=== PATIENT | female | born 1940 | race Caucasian/White ===

== ENCOUNTER → 2018-10-18 09:16 | Outpatient (CLI) | payer MEDICARE, OTHER, SELFPAY ==
--- NOTE | 2018-10-18 09:32 | PCM.CR.ITP ---
General Information - General Information Admitting Diagnosis: STEMI, PCI W/CORONARY STENT PLACEMENT - Education/Goals Barriers to Learning: Vision Impairment Individual Counseling: Initial Assessment: Abnormal Cholesterol Levels, High Blood Pressure Cardiac Rehabilitation Goals: 1. Maintain the individual as the primary focus of care. 2. To improve the patient's quality of life. 3. Identification of cardiac risk factors and provide cardiac risk factor management. 4. Enhance the psychosocial status of the patient. 5. Reconditioning enough to allow the patient to resume customary activities. 6. Control symptoms of cardiac disease Scale for measuring improvement of personal goals: Enter appropriate number in Comments. 2 = Unchanged. 3 = Slightly Better. 4 = Moderate Improvement. 5 = Met my Goal Personal Goals: Initial Assessment: Improve management of stress and emotions, Improve energy level, Participate in home exercise program, Get back to work, or to resume activities faster, Improve knowledge of cardiac disease, Improve muscle strength and endurance, Improve diet and eating habits (eat healthier), Control risk factors (learn risk factor modification) Exercise - Initial Assessment - Visit Date of Eval: 10/18/18 Session #:: 0 - START IN 2-WEEKS - Stages of Change Stages of Change:: Action - Physician Prescribed Exercise Modalities: Treadmill, Airdyne, NuStep, SciFit Frequency (days/week): 3x/week for 12 weeks [36 sessions] Duration (Minutes):: 30-45 MINUTES Intensity: 60-80% age predicted maximum heart rate reserve METs - Progression: 0.5-1.0 MET, RPE 11-14 WEEK: 2.5 Target Heart Rate:: 94-122 - Hypertension Do any of the following apply?: Yes Resting Blood Pressure:: 120/76 - Intervention Home Exercise/Activity Goal:: Sitting Time <3 hrs/day - Education Goals:: Warm-up, RPE ELAINE Scale, S/S, Safe Exercise, Self-Monitoring - Exercise Program Goals Exercise Program Goals: Aerobic Activity >30 min Nutrition - Initial Assessment - Program Goals Nutrition Program Goals: LDL <70. Total Cholesterol <200. HDL >45. Triglycerides <150. HgbA1C <7%. BMI <25 - Visit Date of Assessment:: 10/18/18 - Stages of Change Stages of Change:: Action - Lipids Total Cholesterol (mg/dL) Goal = less than 200 mg/dL: 94 - 08/05/2018 HDL Cholesterol (mg/dL) Goal = less than 45 mg/dL: 25 LDL Cholesterol (mg/dL) Goal = less than 70 mg/dL: 49 Triglycerides (mg/dL) Goal = less than 150 mg/dL: 99 - Diabetes Diabetes:: No - Weight Management Height: 5 ft 3 in Weight:: 123 lb Body Fat %:: 21.86 - Intervention Referral to dietitian:: No Referral to Diabetic Clinic:: No Will attend diet classes:: Yes - Education Gave educational materials for:: Healthy eating Tobacco - Initial Assessment - Program Goals Tobacco Program Goals: Complete smoking cessation. Attend education classes. Improve Knowledge Test score - Stage of Change Stages of Change:: Action - Learning Barriers Learning Barriers: Vision, Ready to Learn - Family Support Do you have family support?: Yes - LIVES WITH DAUGHTER - Tobacco Use Tobacco Use: Non-smoker Do you use smokeless tobacco?: No - Intervention Smoking Cessation Referral:: No Individual Education/Counseling:: No Education Schedule Given:: Yes - Education Attended class for:: Treating Heart Disease, How The Heart Works, What it means to have Heart Disease, How Coronary Artery Disease is Diagnosed, Heart Procedures, What Heart Medications Do, Risk Factors & Modifications, Living an Active Life, Nutrition, Emotions & Heart Disease, Stress Management & Relaxation, Sleep Disorders & Heart Disease Psychosocial - Initial Assess - Target Goals Target Goals: Assess presence or absence of depression. Using a valid screening tool, maximizes coping skills. Positive support system - Stages of Change Stages of Change:: Action - Psychosocial Test Tool Used:: HANDS Depression Questionnaire Tests Completed: SF - 36 survey completed, Mood Scale Test - Intervention PS - Interventions: Yes Attend Stress Management Classes, No Referral to Mental Health, No Referral to [facility] Case Management, No Referral to Physician, No Uses Stress Management Skills - Education Gave educational materials for:: Coping techniques, Signs & symptoms of depression, Stress management, Relaxation techniques - Patient/Program Goal Preventative Medication(s):: Aspirin, FINN inhibitor, Clopidogrel, Beta yessenia, Statin/lipid - Assistive Devices Assistive Devices:: None Patient Health Questionnaire Initial Assessment 1. Little interest or pleasure in doing things: Several days 2. Feeling down, depressed, or hopeless: Several days 3. Trouble falling or staying asleep, or sleeping too much: Several days 4. Feeling tired or having little energy: Several days 5. Poor appetite or overeating: More than half the days 6. Feeling bad about yourself -- or that you are a failure or have let yourself or your family down: Several days 7. Trouble concentrating on things, such as reading the newspaper or watching television: Several days 8. Moving or speaking so slowly that other people could have noticed. Or the opposite - being so fidgety or restless that you have been moving around a lot more than usual: Several days 9. Thoughts that you would be better off , or of hurting yourself in some way: Several days How difficult have these problems made it for you to do your work, take care of things at home, or get along with other people?: Not difficult at all Total Score: 10 CEE-Q SV Test - Statements CAD is a disease of the arteries in the heart: True Examples of risk factors for heart disease: True Angina is chest pain or discomfort: True The benefits of resistance training include: False Eating more meat and dairy products: True Anti-platelet medications such as aspirin are important: True The only effective way to manage stress: True An exercise warm-up slowly increases heart rate: I Don't Know Prepared, processed foods usually have high sodium: True Depression is common after a heart attack: I Don't Know The statin medications lower cholesterol: I Don't Know To control blood pressure, lower the amount of sodium: I Don't Know If someone gets chest discomfort during walking: False Transfats are partially hydrogenated vegetable oils: I Don't Know Sleep apnea that is not treated increases the risk: True To control cholesterol, one should become a vegetarian: I Don't Know Someone knows if he/she is exercising at the right level: I Don't Know Diabetes cannot be prevented with exercise & health eating: I Don't Know Stress is a large risk for heart attack: True A diet that can help lower blood pressure is rich in: True - Total Score Total Correct Responses: 7 Self-Efficacy Initial Assessment We would like to know how confident you are in doing certain activities. Please select your confidence level for:: Select your confidence level for the following using the scale 1-10 where 1 is not at all confident and 10 is totally confident. Your score is the average of all 6 responses. Fatigue: How confident are you that you can keep the fatigue caused by your disease from interfering with the things you want to do? Select Number: 9 Physical Discomfort or Pain: How confident are you that you can keep the physical discomfort or pain of your disease from interfering with the things you want to do? Select Number: 10 Emotional Distress: How confident are you that you can keep the emotional distress caused by your disease from interfering with the things you want to do? Select Number: 10 Other Symptoms or Health Problems: How confident are you that you can keep other symptoms or health problems from interfering with the things you want to do? Select Number: 9 Different Tasks and Activities: How confident are you that you can do the different tasks and activities needed to manage your health condition so as to reduce your need to see a doctor? Select Number: 9 Medication: How confident are you that you can do things other than just taking medication to reduce how much your illness affects your everyday life? Select Number: 10 Total Score:: 9 Nutrition Survey - Nutrition Survey Instructions Scoring Instructions: Scoring is as follows: Yes = 1 points. No = 0 point. Patient score that is >/=12 is considered to be at potential nutritional risk and could benefit from a referral to a registered dietitian. - Nutrition Survey Initial Have you lost >10 lbs over the past 2 months without trying?: Yes Are you following a special diet at home for diabetes, low fat, or low salt?: Yes Are you interested in meeting with a dietitian for help understanding your diet?: Yes Do you eat less than 3 meals a day?: Yes Do you eat fatty meats (love, sausage, ribs, etc), fried foods, desserts, large amounts of salad dressings, margarine, butter, or cheese most days?: No Do you have food allergies? [Enter types in comment field]: No Do you eat in restaurants more than 3 times a week?: No Do you season food with salt, seasoning salt, or garlic salt?: Yes Do you used canned, boxed, frozen meals, or soups, seasoning packets?: No Total Score:: 5
--- NOTE | 2018-10-18 09:32 | PCM.CR.HP2 ---
CR - History & Physical - General Arrival date:: 10/18/18 Arrival time:: 09:33 - SCHEDULED FOR 8:45 AM Date of Referral:: 10/12/18 Date of CR Evaluation:: 10/18/18 Referring Physician: DR. TONI BEY @ [facility] Primary Diagnosis: PCI W/CORONARY, STEMI - History of Present Cardiac Event Onset Date: Enter Onset Date of cardiac illnesses in Comment field below Current stable Angina Pectoris:: No Acute Myocardial Infarction within 12 months:: Yes - STEMI 08/04/2018 PTCA or coronary stenting:: Yes - PCI W/CORONARY STENT ON 08/04/2018 Type of Symptoms:: SHORTNESS OF BREATH, W/SYNCOPE AND COLLAPSE. Interventions with present event:: EMERGENT HEART CATH W/CORONARY STENT PLACEMENT Were there any complications?: NONE - Medications Home Medications: Ambulatory Orders Medication Instructions Recorded Aspirin [Aspirin, Baby] 81 mg PO DAILY@0800 10/18/18 Atorvastatin Calcium 80 mg PO 10/18/18 Clopidogrel Bisulfate [Clopidogrel] 75 mg PO 10/18/18 Dicyclomine HCl [Bentyl] 10 mg PO TIDAC 10/18/18 Metoprolol Tartrate [Lopressor 25 mg PO BID 10/18/18 (Beta Cristóbal)] Multivitamin with Minerals [Daily 10/18/18 Vitamin Formula-Minerals] Omeprazole [Prilosec] 40 mg PO DAILY 10/18/18 Potassium Chloride [Klor-Con 10] 10 meq PO 10/18/18 Psyllium [Metamucil] 1 packet PO DAILY 10/18/18 Sertraline HCl [Zoloft] 50 mg PO DAILY 10/18/18 Torsemide [Demadex] 20 mg PO DAILY 10/18/18 Ursodiol 300 mg PO 10/18/18 - Allergies Allergies/Adverse Reactions: Allergies No Known Allergies Allergy (Verified 10/18/18 09:45) - Sleep Disorder Evaluation Hx of Sleep Apnea: No Do you snore loudly (louder than talking or can be heard through closed doors)?: No Do you often feel tired/ fatigued/ sleepy during daytime?: No Has anyone observed you stop breathing during sleep?: No History of Hypertension (for STOP score): Yes STOP Results: Negative Advanced Directives - Advanced Directives Power of Range Manager: Yes - Margarita (daughter) IS P.O.A for healthcare Living Will: No Advance Directives Information Provided: No Advance Directives on File: Yes - Daughter is to bring for electronic scanning DNR Order?:: No - MOLST See MOLST form: No Past Medical History - Past Medical Illness Medical History: Past Medical History (Last Updated 10/18/18 @ 10:08 by London Longoria CRT, BLANCHE, BS) Anemia D64.9 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 Dyslipidemia E78.5 Gallstone of bile duct with gallbladder inflammation K80.40 H/O transfusion of whole blood Z92.89 Hx of blood clots Z86.718 Hyperlipidemia E78.5 Iron deficiency anemia, unspecified D50.9 Paroxysmal atrial fibrillation I48.0 Persistent atrial fibrillation I48.1 h/o throat surgery enlarged esophagous Hypertension I10 - Past Surgical History Surgical History: Past Surgical History (Last Updated 10/18/18 @ 09:50 by London Longoria CRT, BLANCHE, BS) H/O colonoscopy Z98.890 H/O eye surgery Z98.890 cataract removal H/O heart artery stent Z95.5 Surgical History: cataract - Family History Summary Family History: Family History (Last Updated 10/18/18 @ 09:52 by London Longoria CRT, BLANCHE, BS) Other no pertinent family medical hsitory Social History - Smoking History Smoking Status: Never smoker Hx Tobacco Use: No Hx Smoking Exposure: No - Alcohol Use Alcohol Usage: No - Substance Abuse Hx Substance Use: No - Occupation Occupation (List type of work in comments):: Retired - Hobbies, Recreation, Social Activities Hobbies: Reading, Walking, Exercise - USED TO GO TO THE [employer], Other - GARDENING, BOARD GAMES, CARDS Recreational Activities: I am able to engage in most, but not all activities Social Environment - Status Marital Status: - CURRENTLY - COURT ORDER RESTRAINT AGAINST HIM OF 10/17/2018 - Current Living Arrangements Living Environment:: Family - Children How many children do you have?: 4 Do any of your children live nearby?: Yes - Safety Do you feel safe in your surroundings?: Yes - CURRENTLY RESIDES WITH DAUGHTER, HAS COURT RESTRAINING ORDER AGAINST SPOUSE - Assistance Do you need any assistance at home?: NONE Review of Systems - Review of Systems Hints: Right click = Denies (Slash). Left click = Reports (Pala) Review of Present Symptoms: Reports: Heart Arrhythmia/Irregularities - PAROXYSMAL ATRIAL FIBRILLATION, PERSISTENT ATRIAL FIB, Appetite - Normal, Appetite - Special Diet - LOW FAT, NO SODIUM DIET, Sleep - Normal. Denies: Shortness of Breath at Rest, Shortness of Breath with Exertion, Dizziness/Lightheadedness - Pain Is Patient Pain Free?: No Pain Location: back - OSTEOPOROSIS OF BACK Pain Level: 09/17 Risk Factor Assessment - Chief Complaint Chief Complaint: Patient presents to CR today from [facility] recent STEMI w/emergent PCI and coronary stent placement. The patient was originally referred to the [facility], but chosse to do her CR here at [facility]. Dr. Zack oLpez performed the procedure and Dr. Toni Bey is her primary winding inspector and tester. - Vital Signs Temperature: 97.8 F Respiratory Rate: 16 Pulse Ox: 95 Blood Pressure: 120/76 Nailbeds:: pink - Pulse Pulse Rate: 78 Pulse Rhythm: Regular - Hypertension How long have you been treated?: YEARS AGO. Blood Pressure Sitting - Left Arm: 120/76 - Stress Stress: Home/Family - currently going through divorce; has restraining order against current effective yesterday. - Blood Cholesterol/Lipids Total Cholesterol (mg/dL) Goal = less than 200 mg/dL: 94 HDL Cholesterol (mg/dL) Goal = less than 40 mg/dL: 25 LDL Cholesterol (mg/dL) Goal = less than 70 mg/dL: 49 Triglycerides (mg/dL) Goal = less than 150 mg/dL: 99 - Diabetes Nutrition Referral for Diabetes: No - Obesity Height: 5 ft 3 in Weight:: 123 lb Weight in Pounds: 123.0 lbs Weight Source: Standing Scale Body Mass Index (BMI): 21.7 Desired Body Weight: 123 Nutritional Referral for Obesity: No - Physical Inactivity Physical Inactivity: Recreational activity - Risk Stratification Risk Guidelines: Lowest Risk: Risk Factor for Smoking, Risk Factor for Dyslipidemia, Risk Factor for Diabetes, Risk Factor for Obesity, Risk Factor for Hypertension, Risk Factor for Sedentary Lifestyle, Risk Factor for Depression - For Smoking Smoking Risk Guidelines: Smoking Low Risk: None or quit greater than 6 months ago. Smoking Moderate Risk: Smoker or quit 6 months or less ago. Smoking High Risk: Smoker - For Dyslipidemia Dyslipidemia Risk Guidelines: Low Risk: Moderate Risk: High Risk: 15-25% fat 25.1-29% fat >/= 30% fat. <7% sat fat 7-9% sat fat >9% sat fat. <150 mg chol 150-299 mg chol >/= 300 mg chol. LDL <100 LDL 100-129 LDL >/= 130. Chol/HDL ratio <5.0 Chol/HDL ratio 5.0-6.0 Chol/HDL ratio >6.0. Triglycerides <100 Triglycerides 100-149 Triglycerides >/= 150 - For Diabetes Mellitus Diabetes Risk Guidelines: Diabetes Low Risk: HgA1c <6.5% and/or FBG <120. Diabetes Moderate Risk: HgA1c 6.6-7.9% and/or FBG 120-180. Diabetes High Risk: HgA1c >/= 8% and/or FBG >180 - For Obesity/Overweight Obesity/Overweight Risk Guidelines: Obesity Low Risk: BMI <25.0. Obesity Moderate Risk: BMI 25-29.9. Obesity High Risk: BMI >/= 30.0 - For Hypertension Hypertension Risk Guidelines: Hypertension Low Risk: Systolic <120 and Diastolic <80. Hypertension Moderate Risk: Systolic 120-139 and Diastolic 80-89. Hypertension High Risk: Systolic >/= 140 and Diastolic >/= 90 - For Sedentary Lifestyle Sedentary Lifestyle Risk Guidelines: Sedentary Lifestyle Low Risk: >/= 1,500 kcal/week. Sedentary Lifestyle Moderate Risk: 700-1,499 kcal/week. Sedentary Lifestyle High Risk: < 700 kcal/week - For Depression Depression Risk Guidelines: Depression Low Risk: Not clinically depressed. Depression Moderate Risk: Mildly depressed. Depression High Risk: Clinically depressed - Family History Family History: Family History (Last Updated 10/18/18 @ 09:52 by London Longoria, CHANGE HOUSE ATTENDANT, ZOO CARETAKER, BS) Other no pertinent family medical hsitory Motivation - Motivation to Participate On a scale of 1 to 10, how prepared are you to commit to attending program?: 10 What do you see as barriers to successfully being able to complete the program?: BACK PAIN FROM OSTEOPOROSIS BACK What do you see as the benefits of succesfully completing the program? In other words, what do you hope to get out of participating in the program?: GETTING STRONGER Are there issues you are dealing with that will interfere with completing the program?: NONE Do you have a spouse or signficant other, family or friends who will help support you to complete the program?: YES
[2018-10-18 10:27] VITALS: BP 120/76; PULSE 78; RESP 16; TEMP 36.6; O2SAT 95; BMI 21.7
[2018-10-18 10:48] VITALS: BP 120/76
== END ==
PROVIDERS: Family Provider Family Medicine; PCP Family Medicine
DX: I25.10 Atherosclerotic heart disease of native coronary artery without angina pectoris (principal); I10 Essential (primary) hypertension; I48.0 Paroxysmal atrial fibrillation; I48.1 Persistent atrial fibrillation; E78.5 Hyperlipidemia, unspecified; Z95.5 Presence of coronary angioplasty implant and graft; I25.2 Old myocardial infarction

== ENCOUNTER 2018-11-07 09:15 | Outpatient (RCR) | payer MEDICARE, OTHER, SELFPAY ==
[2018-10-18 10:27] VITALS: BMI 21.7
== END 2018-11-07 23:59 ==
LOC: CR 09:15
PROVIDERS: Family Provider Family Medicine; PCP Family Medicine
DX: I25.10 Atherosclerotic heart disease of native coronary artery without angina pectoris (principal); I21.19 ST elevation (STEMI) myocardial infarction involving other coronary artery of inferior wall
CPT/HCPCS: 93798

== ENCOUNTER 2018-12-07 09:15 | Outpatient (RCR) | payer MEDICARE, OTHER, SELFPAY ==
[2018-10-18 10:27] VITALS: BMI 21.7
--- NOTE | 2018-11-16 11:38 | PCM.CR.ITP ---
Exercise - 30-day Assessment - Visit Date of Eval: 11/16/18 Session #:: 5 - Patient started CR on 11/07/2018 - Stages of Change Stages of Change:: Action - Physician Prescribed Exercise Modalities: Treadmill, Airdyne, NuStep Frequency (days/week): 3 Duration (Minutes):: 30-45 Intensity: 60-80% age predicted maximum heart rate reserve METs - Progression: 0.5-1.0 MET, RPE 11-14 WEEK: 2.5 Target Heart Rate:: 94-122 w/MAX HR of 120 - Hypertension Resting Blood Pressure:: 124/62 Peak Exercise Blood Pressure:: 138/62 Medication Changes:: No - Intervention Home Exercise/Activity Goal:: Sitting Time <3 hrs/day - Education Goals:: Warm-up, RPE ELAINE Scale, S/S, Safe Exercise, Self-Monitoring - Exercise Program Goals Exercise Program Goals: Aerobic Activity >30 min Nutrition - 30-Day Assessment - Program Goals Nutrition Program Goals: LDL <70. Total Cholesterol <200. HDL >45. Triglycerides <150. HgbA1C <7%. BMI <25 - Visit Date of Eval: 11/16/18 - Stages of Change Stages of Change:: Action - Lipids Has the patient seen the dietitian?: No - Diabetes Diabetes:: No Insulin: No Non-Insulin Dependent?: No - Weight Management Weight:: 116 lb - Intervention Referral to dietitian:: No Referral to Diabetic Clinic:: No Will attend diet classes:: Yes - Education Attended class for:: Healthy eating Tobacco - Initial Assessment - Program Goals Tobacco Program Goals: Complete smoking cessation. Attend education classes. Improve Knowledge Test score - Learning Barriers Learning Barriers: Vision, Ready to Learn Tobacco - 30-Day Assessment - Program Goals Tobacco Program Goals: Complete smoking cessation. Attend education classes. Improve Knowledge Test score - Stage of Change Stages of Change:: Action - Learning Barriers Learning Barriers: Participates in education, Change in behavior - Family Support Do you have family support?: Yes - Tobacco Use Tobacco Use: Non-smoker Do you use smokeless tobacco?: No - Intervention Smoking Cessation Referral:: No Individual Education/Counseling:: No Education Schedule Given:: Yes - Education Attended class for:: Risk Factors & Modifications, Living an Active Life Psychosocial - 30-Day Assess - Target Goals Target Goals: Assess presence or absence of depression. Using a valid screening tool, maximizes coping skills. Positive support system - Stages of Change Stages of Change:: Action - Psychosocial Test Tool Used:: HANDS Depression Questionnaire Tests Completed: SF - 36 survey completed, Mood Scale Test - Intervention PS - Interventions: Yes Attend Stress Management Classes, No Referral to Mental Health, No Referral to [facility] Case Management, No Referral to Physician, No Uses Stress Management Skills - Education Attended classes for:: Coping techniques, Signs & symptoms of depression, Stress management, Relaxation techniques - Patient/Program Goal Preventative Medication(s):: Aspirin, FINN inhibitor, Clopidogrel, Beta yessenia, Statin/lipid - Assistive Devices Assistive Devices:: None Fall Risk Assessed:: Yes Patient Health Questionnaire 30-Day Re-eval Assessment 1. Little interest or pleasure in doing things: Several days 2. Feeling down, depressed, or hopeless: Several days 3. Trouble falling or staying asleep, or sleeping too much: Several days 4. Feeling tired or having little energy: Several days 5. Poor appetite or overeating: More than half the days 6. Feeling bad about yourself -- or that you are a failure or have let yourself or your family down: Not at all 7. Trouble concentrating on things, such as reading the newspaper or watching television: Not at all 8. Moving or speaking so slowly that other people could have noticed. Or the opposite - being so fidgety or restless that you have been moving around a lot more than usual: Not at all 9. Thoughts that you would be better off , or of hurting yourself in some way: Not at all How difficult have these problems made it for you to do your work, take care of things at home, or get along with other people?: Not difficult at all Total Score: 6 Self-Efficacy 30-Day Re-eval Assessment We would like to know how confident you are in doing certain activities. Please select your confidence level for:: Select your confidence level for the following using the scale 1-10 where 1 is not at all confident and 10 is totally confident. Your score is the average of all 6 responses. Fatigue: How confident are you that you can keep the fatigue caused by your disease from interfering with the things you want to do? Select Number: 9 Physical Discomfort or Pain: How confident are you that you can keep the physical discomfort or pain of your disease from interfering with the things you want to do? Select Number: 10 Emotional Distress: How confident are you that you can keep the emotional distress caused by your disease from interfering with the things you want to do? Select Number: 10 Other Symptoms or Health Problems: How confident are you that you can keep other symptoms or health problems from interfering with the things you want to do? Select Number: 9 Different Tasks and Activities: How confident are you that you can do the different tasks and activities needed to manage your health condition so as to reduce your need to see a doctor? Select Number: 10 Medication: How confident are you that you can do things other than just taking medication to reduce how much your illness affects your everyday life? Select Number: 9 Total Score:: 9
[2018-11-16 11:42] VITALS: BP 124/62; BP 138/62
== END 2018-12-08 23:59 ==
LOC: CR 09:15
PROVIDERS: Family Provider Family Medicine; PCP Family Medicine
DX: Z95.5 Presence of coronary angioplasty implant and graft (principal); I21.3 ST elevation (STEMI) myocardial infarction of unspecified site; I25.10 Atherosclerotic heart disease of native coronary artery without angina pectoris; E78.2 Mixed hyperlipidemia; I10 Essential (primary) hypertension
CPT/HCPCS: 93798

== ENCOUNTER 2019-01-04 09:15 | Outpatient (RCR) | payer MEDICARE, OTHER, SELFPAY ==
[2018-10-18 10:27] VITALS: BMI 21.7
[2018-12-09 01:09] VITALS: BP 124/62; BP 138/62
--- NOTE | 2018-12-16 12:35 | PCM.CR.ITP ---
Exercise - 30-day Assessment - Visit Date of Eval: 12/16/18 Session #:: 15 - Stages of Change Stages of Change:: Action - Physician Prescribed Exercise Modalities: Treadmill, Airdyne, NuStep Frequency (days/week): 3 Duration (Minutes):: 30-45 Intensity: 60-80% age predicted maximum heart rate reserve METs - Progression: 0.5-1.0 MET, RPE 11-14 WEEK: 3.8 increase from 2.5 Target Heart Rate:: 94-122 w/max hr 104 - Hypertension Resting Blood Pressure:: 122/52 Peak Exercise Blood Pressure:: 138/68 Medication Changes:: No - Intervention Home Exercise/Activity Goal:: Sitting Time <3 hrs/day - Education Goals:: Warm-up, RPE ELAINE Scale, S/S, Safe Exercise, Self-Monitoring - Exercise Program Goals Exercise Program Goals: Aerobic Activity >30 min Nutrition - 30-Day Assessment - Program Goals Nutrition Program Goals: LDL <70. Total Cholesterol <200. HDL >45. Triglycerides <150. HgbA1C <7%. BMI <25 - Visit Date of Eval: 12/16/18 - Stages of Change Stages of Change:: Action - Lipids Has the patient seen the dietitian?: No - Diabetes Diabetes:: No Insulin: No Non-Insulin Dependent?: No - Weight Management Weight:: 114 lb - +/- 2 pounds over 30 days - Intervention Referral to dietitian:: No Referral to Diabetic Clinic:: No Will attend diet classes:: Yes - Education Attended class for:: Healthy eating Tobacco - Initial Assessment - Program Goals Tobacco Program Goals: Complete smoking cessation. Attend education classes. Improve Knowledge Test score - Learning Barriers Learning Barriers: Vision, Ready to Learn Tobacco - 30-Day Assessment - Program Goals Tobacco Program Goals: Complete smoking cessation. Attend education classes. Improve Knowledge Test score - Stage of Change Stages of Change:: Action - Learning Barriers Learning Barriers: Participates in education - Family Support Do you have family support?: Yes - Tobacco Use Tobacco Use: Non-smoker Do you use smokeless tobacco?: No - Intervention Smoking Cessation Referral:: No Individual Education/Counseling:: No Education Schedule Given:: Yes - Education Attended class for:: Treating Heart Disease, How The Heart Works, Emotions & Heart Disease, Stress Management & Relaxation, Sleep Disorders & Heart Disease Psychosocial - Initial Assess - Target Goals Target Goals: Assess presence or absence of depression. Using a valid screening tool, maximizes coping skills. Positive support system - Psychosocial Test Tool Used:: HANDS Depression Questionnaire - Assistive Devices Fall Risk Assessed:: Yes Psychosocial - 30-Day Assess - Target Goals Target Goals: Assess presence or absence of depression. Using a valid screening tool, maximizes coping skills. Positive support system - Stages of Change Stages of Change:: Action - Psychosocial Test Tool Used:: HANDS Depression Questionnaire - Intervention PS - Interventions: Yes Attend Stress Management Classes, Yes Uses Stress Management Skills, No Referral to Mental Health, No Referral to [facility] Case Management, No Referral to Physician - Education Attended classes for:: Coping techniques, Signs & symptoms of depression, Stress management, Relaxation techniques - Patient/Program Goal Preventative Medication(s):: Aspirin - with asisstance from her daughter patient reports taking mediations daily, FINN inhibitor, Clopidogrel, Beta yessenia, Statin/lipid - Assistive Devices Assistive Devices:: None Fall Risk Assessed:: Yes Patient Health Questionnaire 30-Day Re-eval Assessment 1. Little interest or pleasure in doing things: Several days 2. Feeling down, depressed, or hopeless: Several days 3. Trouble falling or staying asleep, or sleeping too much: Several days 4. Feeling tired or having little energy: Not at all 5. Poor appetite or overeating: Several days 6. Feeling bad about yourself -- or that you are a failure or have let yourself or your family down: Not at all 7. Trouble concentrating on things, such as reading the newspaper or watching television: Not at all 8. Moving or speaking so slowly that other people could have noticed. Or the opposite - being so fidgety or restless that you have been moving around a lot more than usual: Not at all 9. Thoughts that you would be better off , or of hurting yourself in some way: Not at all How difficult have these problems made it for you to do your work, take care of things at home, or get along with other people?: Not difficult at all Total Score: 4 Self-Efficacy 30-Day Re-eval Assessment We would like to know how confident you are in doing certain activities. Please select your confidence level for:: Select your confidence level for the following using the scale 1-10 where 1 is not at all confident and 10 is totally confident. Your score is the average of all 6 responses. Fatigue: How confident are you that you can keep the fatigue caused by your disease from interfering with the things you want to do? Select Number: 9 Physical Discomfort or Pain: How confident are you that you can keep the physical discomfort or pain of your disease from interfering with the things you want to do? Select Number: 10 Emotional Distress: How confident are you that you can keep the emotional distress caused by your disease from interfering with the things you want to do? Select Number: 10 Other Symptoms or Health Problems: How confident are you that you can keep other symptoms or health problems from interfering with the things you want to do? Select Number: 9 Different Tasks and Activities: How confident are you that you can do the different tasks and activities needed to manage your health condition so as to reduce your need to see a doctor? Select Number: 10 Medication: How confident are you that you can do things other than just taking medication to reduce how much your illness affects your everyday life? Select Number: 10 Total Score:: 9
[2018-12-16 12:40] VITALS: BP 122/52; BP 138/68
== END 2019-01-07 23:59 ==
LOC: CR 09:15
PROVIDERS: Family Provider Family Medicine; PCP Family Medicine
DX: I25.10 Atherosclerotic heart disease of native coronary artery without angina pectoris (principal)
CPT/HCPCS: 93798

== ENCOUNTER 2019-01-19 09:03 | Emergency (ER) | payer MEDICARE, OTHER, SELFPAY ==
[2018-10-18 10:27] VITALS: BMI 21.7
[2019-01-19 09:04] VITALS: BP 121/71; PULSE 68; RESP 18; TEMP 36.4; O2SAT 100; BMI 22.0
--- NOTE | 2019-01-19 09:16 | CT_ITS ---
STUDY: CT BRAIN WITHOUT CONTRAST REASON FOR EXAM: Female, 78 years old. Head injury following a fall. RADIATION DOSAGE (If Supplied By Facility): CTDIvol = ( 44.99 ) mGy, DLP = ( 459.49 ) mGycm TECHNIQUE: Transaxial CT imaging of the brain was performed without administration of intravenous contrast material. Individualized dose optimization techniques were used for this CT. COMPARISON: No relevant priors. FINDINGS: Normal soft tissue structures. Normal calvarium. There is mild cerebral atrophy with widening of the extra-axial spaces and ventricular dilatation. Normal white matter tracts of the cerebral hemispheres. Normal basal ganglia and thalami. Normal brainstem. There is mild cerebellar atrophy. There is no intracranial hemorrhage. There are no findings of an acute ischemic infarction. Normal visualized paranasal sinuses. CT/Brain/Head without Contrast IMPRESSION: Chronic involutional changes of the brain. Electronically Signed: Demar Toscano, at 10:41 EST , Service support ,
--- NOTE | 2019-01-19 09:17 | RAD_ITS ---
STUDY: X-RAY CHEST REASON FOR EXAM: Female, 78 years old. Left anterior chest pain and bruising following a fall. TECHNIQUE: PA and lateral views of the chest. COMPARISON: None. FINDINGS: The lungs are clear and expanded. Scattered calcified granulomas. There is no demonstrated pleural abnormality. Normal size heart. Normal mediastinum and tim. Normal visualized pulmonary arteries. There is atherosclerotic calcification of the aortic arch with tortuosity. There are diffuse degenerative changes of the visualized thoracic spine. Increased kyphosis. Healed fracture of the proximal right humerus with deformity. Moderate sized hiatal hernia. RAD/Chest PA and Lateral IMPRESSION: No acute abnormality is seen. Electronically Signed: Demar Toscano, at 11:23 EST , Service support ,
--- NOTE | 2019-01-19 09:18 | ED.VISSUMM ---
- ER Visit Summary Date of Service: 01/19/19 Chief Complaint: Fall History of Present Illness: The patient is a 78 F history of anemia, CAD, [place], cardiac stents on Plavix. Patient lives alone but by her daughter. Either Wednesday or Wednesday she had a fall at home. Says she just lost her balance fell think she fell backwards. May or may not hit her head. Her biggest issue was left anterior chest bruising. She did not initially tell her daughter about the fall but when her daughter saw the bruising she wants her checked out. Plus she knew that she was on Plavix and may have hit her head. Patient denies any nausea, vomiting or diarrhea. She said she has had hematuria recently but believes it has resolved. She denies any dysuria. No fever. No abdominal pain or headache. Physical Examination: Older female no acute distress. Vital signs are stable afebrile. Accompanied by her daughter. H EENT exam pupils round reactive light. Currently there is no signs of head trauma or tenderness. C-spine is nontender. Trachea midline. Lungs clear to auscultation bilaterally. Her left anterior chest wall has a 4 x 4 inch area of bruising. There is no crepitance or subcu air. There is only mild tenderness. Heart is regular rate and rhythm no murmur appreciated. Abdomen is soft and nontender normal bowel sounds no peritoneal signs. There is a small bruise just below her left ribs but the abdomen is completely nontender. Pelvic girdle is intact and nontender. She is moving all 4 extremities. They are neurovascularly intact. There is no edema. She has normal range of motion to upper and lower extremities. There is no shortening or rotation of the hips and she has full flexion-extension of both hips. Back is nontender without bruising. Spine is nontender. Neurologically she is awake and alert. Speaking normally. Following commands. Answering questions. She knows day, month, year and president 9 states. Her NIH score is 0. GCS score is 15. Test Results: CAT scan of the brain without contrast shows acute abnormality. Read by the radiologist and reviewed by me. Chest x-ray AP and lateral views shows 2 views shows no acute abnormality. Read by myself. Left femur x-ray 2 view shows no acute abnormality. Arthritic changes of the knee. Read by myself. CBC normal with a white count of 9. Hemoglobin 13. BMP unremarkable with normal renal function. Normal gap. Urinalysis is normal with no signs of infection or blood. Emergency Department Course and Treatment: Older female fall at home on blood thinners believe that she may have struck her head CAT scan will be obtained. She will also have labs done due to a history of anemia and recent hematuria a urinalysis. Exam patient is doing well. Her daughter was concerned because she had a very small bruise on her left upper leg. She was minimally tender and there was no deformity with normal range of motion of her hip or knee. I did obtain an x-ray which was also negative. She is doing very well on repeat exam and is comfortable being discharged home. We did go over all x-ray results and lab work. Treatment Plan: Follow-up with your doctor as needed. Disposition: Discharge Impression: Fall Left chest wall contusion Head injury on Plavix Hematuria resolved This note was generated with [id number] dictation software. It may contain incorrect words, spelling, and punctuation that were not noted in review of the chart prior to signing ED Disposition - Plan for ED Patient: Referrals: Mita Morton [Primary Care Provider] -
[2019-01-19 09:53] LABS: Mucous, Urine 0 SEEN /hpf (<or=2+); Red Blood Cells-Urine 0 SEEN /hpf (0-5); White Blood Cells 0 SEEN /hpf (0-5)
[2019-01-19 09:57] LABS: Color, Urine Straw (Yellow); Glucose, Dipstick Normal (Normal); Ketone-Dipstick Negative (Negative); Leukocyte Esterase-Dipstick Negative /ul (Negative); Nitrite-Dipstick Negative (Negative); Occult Blood-Urine Negative /ul (Negative); Protein-Dipstick Negative (Negative); Urine Bilirubin Dipstick Negative (Negative); Urine Clarity Clear (Clear); Urine Urobilinogen Normal (Normal)
[2019-01-19 10:02] LABS: Bacteria RARE /hpf (None Seen); Squamous Epithelial Cells - UA 0-5 SEEN /hpf (5-10)
[2019-01-19 10:03] LABS: Absolute Lymphocyte Count 1.28 X10^3/uL (0.83-4.51); Absolute Neutrophil Count 7.5 X10^3/uL (2.0-7.7); Basophil# 0.06 X10^3/uL; Basophil% 0.6 % (0-1); Eosinophil# 0.15 X10^3/uL; Eosinophils% 1.6 % (0-5); Hematocrit 41.6 % (37-47); Hemoglobin 13.8 g/dL (12.0-15.0); Lymphocyte # 1.28 X10^3/ul (4.0); Lymphocyte % 13.3 % (19-41); Mean Corp Hgb Conc 33.2 g/dL (32-36); Mean Corpuscular Hgb 32.5 pg (27.0-32.0); Mean Corpuscular Volume 97.9 fL (81-99); Mean Platelet Vol. 11.4 fl (6.2-12.0); Monocyte% 6.2 % (0-10); NRBC Flagged by Analyzer 0 % (0-5); Neutrophil # 7.48 X10^3/uL (2.7-7.7); Neutrophil % 77.9 % (47-70); Platelet Count 261 K/mm3 (150-450); RBC Distribution Width CV 12.2 % (11.6-14.6); RBC Distribution Width SD 43.9 fl (35.1-43.9); Red Blood Count 4.25 M/mm3 (4.2-5.4); White Blood Count 9.6 K/mm3 (4.4-11.0)
--- NOTE | 2019-01-19 10:19 | RAD_ITS ---
STUDY: X-RAY - LEFT FEMUR REASON FOR STUDY: Female, 78 years old. Pain following a fall. TECHNIQUE: 4 view(s) of the femur. COMPARISON: None. FINDINGS: Normal visualized femur. Normal visualized soft tissue structure. RAD/Femur Min 2 Views IMPRESSION: Normal x-ray examination of the femur. Electronically Signed: Demar Toscano, at 11:25 EST , Service support ,
[2019-01-19 10:35] LABS: Anion Gap 4 (5-15); BUN 17 mg/dL (7-18); BUN/Creat Ratio 18.9 RATIO (10-20); Calcium,Total 9.9 mg/dL (8.5-10.1); Chloride 108 mmol/L (98-107); EST Glomerular Filtration Rate 65 mL/min (>60); Est Glom Filt Rate - Afr Amer 78 mL/min (>60); Glucose 77 mg/dL (74-106); Potassium 3.7 mmol/L (3.5-5.1); Sodium Level 144 mmol/L (136-145)
--- NOTE | 2019-01-19 11:01 | ED.DEP ---
ED Disposition - Plan for ED Patient: Disposition: Home or Assisted Living Instructions: HEAD INJURY, No Wake-Up (Adult) Referrals: Mita Morton [Primary Care Provider] - As Needed Additional Instructions: Follow-up with your doctor as needed. Your labs, x-rays, urinalysis and CAT scan today all checked out well. No acute broken bones. Be very careful anytime you fall since you are on the Plavix that you should be evaluated if you hit your head.
[2019-01-19 11:05] VITALS: BP 125/76; PULSE 81; RESP 14; O2SAT 97
== END 2019-01-19 11:32 | disposition home or self-care (01) ==
PROVIDERS: Emergency Provider Emergency Medicine; Family Provider Family Medicine; PCP Family Medicine
DX: S09.90XA Unspecified injury of head, initial encounter (principal); S20.212A Contusion of left front wall of thorax, initial encounter; R31.9 Hematuria, unspecified; W19.XXXA Unspecified fall, initial encounter; Y93.9 Activity, unspecified; Y92.009 Unspecified place in unspecified non-institutional (private) residence as the place of occurrence of the external cause; Y99.9 Unspecified external cause status; I25.10 Atherosclerotic heart disease of native coronary artery without angina pectoris; Z79.02 Long term (current) use of antithrombotics/antiplatelets; Z79.82 Long term (current) use of aspirin; Z79.899 Other long term (current) drug therapy; I25.2 Old myocardial infarction; Z95.5 Presence of coronary angioplasty implant and graft; Z86.2 Personal history of diseases of the blood and blood-forming organs and certain disorders involving the immune mechanism
CPT/HCPCS: 70450; 71046; 73552; 80048; 81001; 85025; 99283; A4216

== ENCOUNTER 2019-01-27 09:15 | Outpatient (RCR) | payer MEDICARE, OTHER, SELFPAY ==
[2018-10-18 10:27] VITALS: BMI 21.7
[2019-01-08 00:51] VITALS: BP 122/52; BP 138/68
--- NOTE | 2019-01-16 08:12 | CR.ITP_ITS ---
General Information - General Information Admitting Diagnosis: PCI with Stent - Education/Goals Cardiac Rehabilitation Goals: 1. Maintain the individual as the primary focus of care. 2. To improve the patient's quality of life. 3. Identification of cardiac risk factors and provide cardiac risk factor management. 4. Enhance the psychosocial status of the patient. 5. Reconditioning enough to allow the patient to resume customary activities. 6. Control symptoms of cardiac disease Scale for measuring improvement of personal goals: Enter appropriate number in Comments. 2 = Unchanged. 3 = Slightly Better. 4 = Moderate Improvement. 5 = Met my Goal Exercise - 90-Day Assessment - Visit Date of Eval: 01/16/19 Session #:: 26 - Stages of Change Stages of Change:: Action - Physician Prescribed Exercise Modalities: Treadmill, Airdyne, NuStep Frequency (days/week): 3 Duration (Minutes):: 30-45 Intensity: 60-80% age predicted maximum heart rate reserve METs - Progression: 0.5-1.0 MET, RPE 11-14 WEEK: 5 Target Heart Rate:: 94-122 Max HR 109 - Hypertension Resting Blood Pressure:: 108/48 Peak Exercise Blood Pressure:: 138/56 Medication Changes:: No - Intervention Home Exercise/Activity Goal:: Sitting Time <3 hrs/day - Education Goals:: Warm-up, RPE ELAINE Scale, S/S, Safe Exercise, Self-Monitoring - Exercise Program Goals Exercise Program Goals: Aerobic Activity >30 min, B/P <130/80 Nutrition - 90-Day Assessment - Program Goals Nutrition Program Goals: LDL <70. Total Cholesterol <200. HDL >45. Triglycerides <150. HgbA1C <7%. BMI <25 - Visit Date of Eval: 01/16/19 - Stages of Change Stages of Change:: Action - Lipids Has the patient seen the dietitian?: No - Diabetes Diabetes:: No - Weight Management Weight:: 50.576 kg - Intervention Referral to dietitian:: No Referral to Diabetic Clinic:: No Will attend diet classes:: Yes - Education Attended class for:: Signs & symptoms of hypoglycemia, Signs & symptoms of hyperglycemia, Relate diabetes to coronary artery disease, Healthy eating Tobacco - Initial Assessment - Program Goals Tobacco Program Goals: Complete smoking cessation. Attend education classes. Improve Knowledge Test score - Learning Barriers Learning Barriers: Vision, Ready to Learn Tobacco - 90-Day Assessment - Program Goals Tobacco Program Goals: Complete smoking cessation. Attend education classes. Improve Knowledge Test score - Stage of Change Stages of Change:: Action - Learning Barriers Learning Barriers: Participates in education - Family Support Do you have family support?: Yes - Tobacco Use Tobacco Use: Non-smoker Do you use smokeless tobacco?: No - Intervention Smoking Cessation Referral:: No Individual Education/Counseling:: No Education Schedule Given:: Yes - Education Attended class for:: Treating Heart Disease, How The Heart Works, What it means to have Heart Disease, How Coronary Artery Disease is Diagnosed, Heart Pro cedures, Nutrition, Emotions & Heart Disease, Stress Management & Relaxation, Sleep Disorders & Heart Disease Psychosocial - Initial Assess - Target Goals Target Goals: Assess presence or absence of depression. Using a valid screening tool, maximizes coping skills. Positive support system - Psychosocial Test Tool Used:: HANDS Depression Questionnaire - Assistive Devices Fall Risk Assessed:: Yes Psychosocial - 90-Day Assess - Target Goals Target Goals: Assess presence or absence of depression. Using a valid screening tool, maximizes coping skills. Positive support system - Stages of Change Stages of Change:: Action - Psychosocial Test Tool Used:: HANDS Depression Questionnaire - Intervention PS - Interventions: Yes Attend Stress Management Classes, Yes Uses Stress Management Skills, No Referral to Mental Health - Education Attended classes for:: Coping techniques, Signs & symptoms of depression, Stress management, Relaxation techniques - Assistive Devices Assistive Devices:: None Fall Risk Assessed:: Yes Patient Health Questionnaire 90-Day Re-eval Assessment 1. Little interest or pleasure in doing things: Several days 2. Feeling down, depressed, or hopeless: Several days 3. Trouble falling or staying asleep, or sleeping too much: Several days 4. Feeling tired or having little energy: Not at all 5. Poor appetite or overeating: Several days 6. Feeling bad about yourself -- or that you are a failure or have let yourself or your family down: Not at all 7. Trouble concentrating on things, such as reading the newspaper or watching television: Not at all 8. Moving or speaking so slowly that other people could have noticed. Or the opposite - being so fidgety or restless that you have been moving around a lot more than usual: Not at all 9. Thoughts that you would be better off , or of hurting yourself in some way: Not at all How difficult have these problems made it for you to do your work, take care of things at home, or get along with other people?: Not difficult at all Total Score: 4 Self-Efficacy 90-Day Re-eval Assessment We would like to know how confident you are in doing certain activities. Please select your confidence level for:: Select your confidence level for the following using the scale 1-10 where 1 is not at all confident and 10 is totally confident. Your score is the average of all 6 responses. Fatigue: How confident are you that you can keep the fatigue caused by your disease from interfering with the things you want to do? Select Number: 9 Physical Discomfort or Pain: How confident are you that you can keep the physical discomfort or pain of your disease from interfering with the things you want to do? Select Number: 10 Emotional Distress: How confident are you that you can keep the emotional distress caused by your disease from interfering with the things you want to do? Select Number: 10 Other Symptoms or Health Problems: How confident are you that you can keep other symptoms or health problems from interfering with the things you want to do? Select Number: 9 Different Tasks and Activities: How confident are you that you can do the different tasks and activities needed to manage your health condition so as to reduce your need to see a doctor? Select Number: 10 Medication: How confident are you that you can do things other than just taking medication to reduce how much your illness affects your everyday life? Select Number: 10 Total Score:: 9
[2019-01-16 08:19] VITALS: BP 108/48; BP 138/56
== END 2019-02-07 23:59 ==
LOC: CR 09:15
PROVIDERS: Family Provider Family Medicine; PCP Family Medicine
DX: I25.10 Atherosclerotic heart disease of native coronary artery without angina pectoris (principal); I21.19 ST elevation (STEMI) myocardial infarction involving other coronary artery of inferior wall
CPT/HCPCS: 93798

== ENCOUNTER 2019-02-10 14:36 | Emergency (ER) | payer MEDICARE, OTHER, SELFPAY ==
[2019-02-10 14:36] VITALS: BP 121/62; PULSE 57; RESP 16; TEMP 36.5; O2SAT 100; BMI 21.7
--- NOTE | 2019-02-10 14:53 | EKG12_ITS ---
Test Reason : CP Blood Pressure : / mmHG Vent. Rate : 056 BPM Atrial Rate : 056 BPM P-R Int : 160 ms QRS Dur : 082 ms QT Int : 470 ms P-R-T Axes : 075 -17 008 degrees QTc Int : 453 ms Sinus bradycardia with Premature atrial complexes Cannot rule out Inferior infarct , age undetermined Abnormal ECG Confirmed by CARIN KAUR MD ([id number]), editorial clerk MATEO MARINELLI ([id number]) on 02/13/2019 1:00:59 PM Referred By: JEFERSON
--- NOTE | 2019-02-10 14:53 | RAD_ITS ---
STUDY: X-RAY CHEST REASON FOR EXAM: Female, 78 years old. ABDOMEN PAIN. TECHNIQUE: AP portable view. COMPARISON: 01/19/2019. FINDINGS: Calcified granuloma in the left peripheral lung base is unchanged. No suspicious pulmonary nodules or infiltrates. There is no demonstrated pleural abnormality. Normal size heart. Normal mediastinum and tim. Normal visualized pulmonary arteries. Normal visualized aortic arch and descending thoracic aorta. Normal visualized thoracic spine. Old fracture deformity of the right humeral head and neck. Normal clavicles, left shoulder and the rib cage. There is no demonstrated abnormality of the visualized soft tissue structures of the upper abdomen. RAD/Chest 1 View (Portable) IMPRESSION: 1. No acute cardiopulmonary pathology. 2. No significant interval changes when compared to 01/19/2019. Electronically Signed: Memo Pride MD at 15:54 EST , Service support ,
--- NOTE | 2019-02-10 14:54 | ED.VIS.GEN ---
History of Present Illness Chief Complaint: Chest Pain Detail of Chief Complaint: Chest and abdominal pain Informant: Patient Onset: Today Context: Gradual Onset Timing: Waxes and wanes Current Severity: Mild Maximum Severity: Moderate Narrative: Patient presents with chest and abdominal pain. Patient states she felt well this morning. She had no pain while eating lunch. 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 Daughter states that upon leaving the wet process assistant head [employer] office her mom told her that she was not feeling well. Daughter called PCP who advised her to come the emergency room. She is complaining of abdominal pain around the umbilicus, mild chest heaviness, and some burning in her throat. Patient reportedly has had significant weight loss over the past couple of months. Her PCP has ordered CAT scans of the chest, abdomen, and pelvis to be performed as an outpatient. Patient had a STEMI in July and had 2 stents placed at [facility]. She went through cardiac rehab here locally without any difficulty. - Past Medical History (1) Anemia Status: Chronic (2) Coronary artery disease Status: Chronic (3) Hypertension Status: Chronic (4) High cholesterol Status: Chronic (5) Atrial fibrillation Status: Chronic (6) Myocardial infarction Status: Chronic Past Medical History - Allergies and Home Meds Allergies/Adverse Reactions: Allergies No Known Allergies Allergy (Verified 02/10/19 14:40) Primary Care Physician: Mita Morton [Primary Care Provider] - Prior records reviewed: Yes Surgical History: cataract Smoking Status: Never smoker Review of Systems General: Denies: Chills, Fever Eyes: Denies: Visual changes - bilaterally ENT: Denies: Bilateral ear pain Cardiovascular: Reports: Chest pain Respiratory: Denies: Dyspnea, Cough Gastrointestinal: Reports: Abdominal pain, Nausea. Denies: Vomiting Genitourinary: Denies: Dysuria Musculoskeletal: Denies: Back pain, Extremity Pain Skin: Denies: Rash Neurological: Denies: Headache Hematologic: Denies: Easy bruising, Easy bleeding Allergy: Denies: Uticaria Physical Exam Vital Signs/Narrative: Vital Signs Temp Pulse Resp BP Pulse Ox 02/10/19 14:36 97.7 F L 57 L 16 121/62 H 100 Inital Vital Signs reviewed: Yes General: Well nourished, Well developed Head: Normocephalic ENT: Moist mucous membranes Neck: Supple Cardiovascular: Bradycardia Respiratory: No distress, CTA bilaterally Abdomen: Soft, Tender - Right upper quadrant tenderness to palpation., Hypoactive bowel sounds. Negative for: Guarding, Rebound tenderness Extremities: Nontender Neurological: Alert, Oriented x3 Psychological: Normal affect Diagnostic/Tx/Re-eval Impressions Chest X-Ray 02/10/19 14:53 IMPRESSION: 1. No acute cardiopulmonary pathology. 2. No significant interval changes when compared to 01/19/2019. Electronically Signed: Memo Pride MD at 15:54 EST , Service support , Abdomen/Pelvis CT 02/10/19 16:14 IMPRESSION: 1. Large retrocardiac hiatal hernia. 2. Distended gallbladder without secondary evidence of acute cholecystitis. 3. Old granulomatous disease. 4. Small left kidney without evidence of abnormal function. 5. Diverticulosis. 6. Degenerative changes of the lumbar spine. Electronically Signed: Efraín Martinez DO at 16:56 EST Tel [phone], Service support , Chest CT 02/10/19 16:14 IMPRESSION: 1. No acute thoracic abnormality. 2. Atherosclerotic changes of the aorta and coronary arteries. 3. Large retrocardiac hiatal hernia. 4. Hepatomegaly. 5. Degenerative changes of the thoracic spine. Electronically Signed: Efraín Martinez DO at 16:51 EST Tel [phone], Service support , ADDENDUM: 02/10/19 1703 02/10/19 14:53 Chest 1 View (Portable) [RAD] Stat 02/10/19 16:14 Abdomen/Pelvis W IV Cont ONLY [CT] Stat CT Chest [Chest WITH Contrast] [CT] Stat Laboratory Results 02/10/19 02/10/19 14:46 14:46 WBC 9.6 RBC 4.06 L Hgb 13.0 Hct 39.5 MCV 97.3 MCH 32.0 MCHC 32.9 RDW Std Deviation 43.2 RDW Coeff of Galen 12.1 Plt Count 265 MPV 11.9 Immature Gran % (Auto) 0.300 Neut % (Auto) 66.8 Lymph % (Auto) 24.1 Rock % (Auto) 6.3 Eos % (Auto) 1.9 Baso % (Auto) 0.6 Absolute Neuts (auto) 6.4 Absolute Lymphs (auto) 2.32 Nucleated RBC % 0 Sodium 139 Potassium 3.4 L Chloride 104 Carbon Dioxide 30.0 Anion Gap 5 BUN 19 H Creatinine 1.06 H Estim Creat Clear Calc 32.43 Est GFR (MDRD) Af Amer 65 Est GFR (MDRD) Non-Af 54 L BUN/Creatinine Ratio 17.9 Glucose 140 H Calcium 9.1 Total Bilirubin 0.60 Direct Bilirubin 0.21 AST 39 H ALT 43 Alkaline Phosphatase 98 Troponin I < 0.015 Total Protein 7.3 Albumin 3.6 Globulin 3.7 Lipase 251 - EKG Initial EKG Interpretation: Sinus Bradycardia - Sinus bradycardia with diffuse T wave flattening. No acute ST change noted. Follow-up EKG Interpretation: Sinus Bradycardia - Sinus bradycardia with T wave flattening. Unchanged from prior. - Medical Decision Making Patient was given 2 mg of morphine followed by a dose of 4 mg for pain control. Lab work is unremarkable and does not indicate acute problems with her gallbladder. CT scans of the chest abdomen and pelvis are obtained. Patient has evidence of a large hiatal hernia and I am suspicious this is causing her symptoms. Gallbladder is large and distended but there is no obvious wall thickening or pericholecystic fluid. I was able to review her prior records in [facility]. She had an abdominal ultrasound on September 152018 that showed a large distended gallbladder with normal wall and no pericholecystic fluid. She had a HIDA scan 2 days later on September 17 that was normal. On repeat examination patient is resting comfortably. She has mild pain in the epigastrium. She is given a GI cocktail. We will switch her Prilosec to Protonix to see if this helps improve her symptoms. ED Disposition - Plan for ED Patient: Disposition: Home or Assisted Living Diagnosis: Abdominal pain, Hiatal hernia, Atypical chest pain Instructions: What Is a Hiatal Hernia?, ABDOMINAL PAIN, Unknown Cause, (Female) Prescriptions: Pantoprazole Sodium [Protonix] 40 mg PO DAILY #30 tab Transmission Status: Pending to [facility]/pharmacy #[id number] Referrals: Mita Morton [Primary Care Provider] - As soon as possible
[2019-02-10] MEDS: Morphine 2 MG/ML Syringe IV (15:01)
[2019-02-10] MEDS: Ondansetron 4 MG/2 ML Vial IV ×2 (15:01→16:44)
[2019-02-10] MEDS: 0.9% Normal Saline 1,000 ML 150 ML IV (15:03)
[2019-02-10 15:27] LABS: Absolute Lymphocyte Count 2.32 X10^3/uL (0.83-4.51); Absolute Neutrophil Count 6.4 X10^3/uL (2.0-7.7); Basophil# 0.06 X10^3/uL; Basophil% 0.6 % (0-1); Eosinophil# 0.18 X10^3/uL; Eosinophils% 1.9 % (0-5); Hematocrit 39.5 % (37-47); Lymphocyte # 2.32 X10^3/ul (4.0); Lymphocyte % 24.1 % (19-41); Mean Corp Hgb Conc 32.9 g/dL (32-36); Mean Corpuscular Volume 97.3 fL (81-99); Mean Platelet Vol. 11.9 fl (6.2-12.0); Monocyte# 0.61 X10^3/uL; Monocyte% 6.3 % (0-10); NRBC Flagged by Analyzer 0 % (0-5); Neutrophil # 6.44 X10^3/uL (2.7-7.7); Neutrophil % 66.8 % (47-70); Platelet Count 265 K/mm3 (150-450); RBC Distribution Width CV 12.1 % (11.6-14.6); RBC Distribution Width SD 43.2 fl (35.1-43.9); Red Blood Count 4.06 M/mm3 (4.2-5.4); White Blood Count 9.6 K/mm3 (4.4-11.0)
[2019-02-10 15:36] VITALS: BP 132/56; PULSE 66; RESP 15; O2SAT 96
--- NOTE | 2019-02-10 15:47 | EKG12_ITS ---
Test Reason : CPREPEAT Blood Pressure : / mmHG Vent. Rate : 059 BPM Atrial Rate : 059 BPM P-R Int : 170 ms QRS Dur : 076 ms QT Int : 460 ms P-R-T Axes : 043 -20 -05 degrees QTc Int : 455 ms Sinus bradycardia Inferior infarct , age undetermined Abnormal ECG Confirmed by VINCENT CHRISTIANSEN, CARIN ([id number]), publication editor MATEO MARINELLI ([id number]) on 02/13/2019 1:00:36 PM Referred By: JEFERSON Confirmed By:CARIN KAUR MD
[2019-02-10 15:48] LABS: AST(SGOT) 39 U/L (15-37); Alanine Aminotransfer ALT/SGPT 43 U/L (13-56); Albumin, Serum 3.6 g/dL (3.2-5.0); Alkaline Phosphatase 98 U/L (45-117); Anion Gap 5 (5-15); BUN 19 mg/dL (7-18); BUN/Creat Ratio 17.9 RATIO (10-20); Bilirubin, Direct 0.21 mg/dL (0.00-0.30); Calcium,Total 9.1 mg/dL (8.5-10.1); Chloride 104 mmol/L (98-107); Creatinine, Serum 1.06 mg/dL (0.55-1.02); EST Glomerular Filtration Rate 54 mL/min (>60); Est Glom Filt Rate - Afr Amer 65 mL/min (>60); Estimated Creatinine Clearance 32.43 ml/min; Globulin 3.7 g/dL (2.2-4.2); Glucose 140 mg/dL (74-106); Lipase 251 U/L (73-393); Potassium 3.4 mmol/L (3.5-5.1); Protein, Total 7.3 g/dL (6.4-8.2); Sodium Level 139 mmol/L (136-145)
[2019-02-10 16:00] VITALS: BP 132/56; PULSE 66; RESP 15; O2SAT 96
--- NOTE | 2019-02-10 16:08 | NURSING ---
NO OLD EKGS
--- NOTE | 2019-02-10 16:14 | CT_ITS ---
STUDY: CT CHEST WITH CONTRAST REASON FOR EXAM: Female, 78 years old. Chest and mid upper abdominal pain after eating. 10 pound weight loss over the past month. History of hypertension, [place], atrial fibrillation and coronary stents. RADIATION DOSAGE (If Supplied By Facility): CTDIvol = ( 7.70 ) mGy, DLP = ( 488.81 ) mGycm TECHNIQUE: Transaxial imaging was performed following intravenous administration of IV 75mL Isovue-300. Multiplanar coronal and sagittal images were reformatted. Individualized dose optimization techniques were used for this CT. COMPARISON: Chest, February 10, 2019. FINDINGS: The lungs are normal. There is no demonstrated pleural abnormality. Normal heart and pericardium. There are calcifications of the coronary arteries. Normal mediastinum. Normal hilar regions. Normal enhanced pulmonary arteries. Mild atherosclerotic changes of the thoracic aorta without aneurysm or dissection. There is a large retrocardiac hiatal hernia of the gastric fundus. There are calcified lymph nodes adjacent to the GE junction. There are multi-level degenerative changes of the thoracic spine. Hepatomegaly. There is distention of the gallbladder. The CBD measures 8 mm in the pancreatic head. CT/Chest WITH Contrast IMPRESSION: 1. No acute thoracic abnormality. 2. Atherosclerotic changes of the aorta and coronary arteries. 3. Large retrocardiac hiatal hernia. 4. Hepatomegaly. 5. Degenerative changes of the thoracic spine. Electronically Signed: Efraín Martinez DO at 16:51 EST Tel [phone], Service support ,
--- NOTE | 2019-02-10 16:14 | CT_ITS ---
STUDY: CT ABDOMEN AND PELVIS WITH CONTRAST REASON FOR EXAM: Female, 78 years old. Chest and mid upper abdominal pain today after eating. 10 pound weight loss over past month. History of hypertension, atrial fibrillation. Coronary stents and prior [place]. RADIATION DOSAGE (If Supplied By Facility): CTDIvol = ( 7.70 ) mGy, DLP = ( 488.81 ) mGycm TECHNIQUE: Transaxial images were obtained from the dome of the diaphragm to the symphysis pubis without oral contrast. IV 75mL Isovue-300 was administered. Sagittal and coronal images were reconstructed. Individualized dose optimization techniques were used for this CT. COMPARISON: CT of the chest, February 10, 2019. FINDINGS: There is a 6 mm calcified granuloma in the left lower lobe. The lungs are otherwise clear. The visualized portions of the heart are within normal limits. The liver isn''t enlarged but uniform in density. The gallbladder is markedly enlarged without evidence of wall thickening or gallstones. There is mild dilatation of the CBD which measures 8 mm at the pancreatic head and tapers to the ampulla. There is no visualized filling defect. There are calcified granulomata in the spleen. Normal pancreas. Normal bilateral adrenal glands. Normal right kidney. The left kidney is small in size. Normal cortical thickness and enhancement. There is no mass. Normal visualized ureters. Largest retrocrural cardiac hiatal hernia of the gastric fundus. The distal stomach is mildly distended with fluid. There is compression of the distal stomach and first portion of the duodenum between the pancreatic head and dilated gallbladder without obstruction. Normal small intestine. Sigmoid diverticulosis. The colon is otherwise unremarkable. The appendix is visualized and appears normal. There is diffuse atherosclerotic calcification of the abdominal aorta, without a demonstrated aneurysm. Normal inferior vena cava. Normal retroperitoneum. Normal urinary bladder. A normal uterus and ovaries. There is no pelvic lymphadenopathy. No free air or free fluid within the peritoneal cavity. Normal abdominal wall. There are diffuse degenerative changes of the visualized lumbar spine. CT/Abdomen/Pelvis W IV Cont ONLY IMPRESSION: 1. Large retrocardiac hiatal hernia. 2. Distended gallbladder without secondary evidence of acute cholecystitis. 3. Old granulomatous disease. 4. Small left kidney without evidence of abnormal function. 5. Diverticulosis. 6. Degenerative changes of the lumbar spine. Electronically Signed: Efraín Martinez DO at 16:56 EST Tel [phone], Service support ,
[2019-02-10] MEDS: Morphine 4 MG/ML Syringe IV (16:44)
[2019-02-10] MEDS: Mag Hydrox/Al Hydrox/Simeth 30 ML UDC PO (17:50)
[2019-02-10 18:19] VITALS: BP 125/61; PULSE 63; RESP 12; O2SAT 99
== END 2019-02-10 18:21 | disposition home or self-care (01) ==
PROVIDERS: Emergency Provider Emergency Medicine; Family Provider Family Medicine; PCP Family Medicine
DX: R10.11 Right upper quadrant pain (principal); R07.89 Other chest pain; K44.9 Diaphragmatic hernia without obstruction or gangrene; K82.8 Other specified diseases of gallbladder; I25.10 Atherosclerotic heart disease of native coronary artery without angina pectoris; I48.20 Chronic atrial fibrillation, unspecified; I10 Essential (primary) hypertension; E78.00 Pure hypercholesterolemia, unspecified; D64.9 Anemia, unspecified; I25.2 Old myocardial infarction; Z79.82 Long term (current) use of aspirin; Z79.899 Other long term (current) drug therapy
CPT/HCPCS: 71045; 71260; 74177; 80048; 80076; 83690; 84484; 85025; 93005; 99285; J7030; Q9967; A4216; J2405

== ENCOUNTER 2019-02-10 21:08 | Emergency (ER) | payer MEDICARE, OTHER, SELFPAY ==
[2019-02-10 21:09] VITALS: BP 141/73; PULSE 65; RESP 16; TEMP 36.5; O2SAT 98; BMI 20.1
[2019-02-10 23:29] VITALS: BP 121/45; PULSE 68; RESP 16; O2SAT 98
--- NOTE | 2019-02-10 23:42 | EKG12_ITS ---
Test Reason : N/V Blood Pressure : / mmHG Vent. Rate : 068 BPM Atrial Rate : 068 BPM P-R Int : 164 ms QRS Dur : 076 ms QT Int : 408 ms P-R-T Axes : 070 -14 -33 degrees QTc Int : 433 ms Normal sinus rhythm Low voltage QRS Nonspecific T wave abnormality Abnormal ECG Confirmed by VINCENT CHRISTIANSEN, CARIN ([id number]), commercial production editor MATEO MARINELLI ([id number]) on 02/13/2019 1:08:56 PM Referred By: MR Confirmed By:CARIN KAUR MD
[2019-02-11] MEDS: 0.9% Normal Saline 1,000 ML 1000 ML IV (00:03)
[2019-02-11] MEDS: Ondansetron 4 MG/2 ML Vial IV (00:04)
[2019-02-11 00:13] LABS: Absolute Lymphocyte Count 0.87 X10^3/uL (0.83-4.51); Absolute Neutrophil Count 13.4 X10^3/uL (2.0-7.7); Basophil# 0.03 X10^3/uL; Basophil% 0.2 % (0-1); Eosinophil# 0.01 X10^3/uL; Eosinophils% 0.1 % (0-5); Hematocrit 37.2 % (37-47); Hemoglobin 12.3 g/dL (12.0-15.0); Lymphocyte # 0.87 X10^3/ul (4.0); Lymphocyte % 5.7 % (19-41); Mean Corp Hgb Conc 33.1 g/dL (32-36); Mean Corpuscular Hgb 32.3 pg (27.0-32.0); Mean Corpuscular Volume 97.6 fL (81-99); Mean Platelet Vol. 11.9 fl (6.2-12.0); Monocyte# 0.85 X10^3/uL; Monocyte% 5.6 % (0-10); NRBC Flagged by Analyzer 0 % (0-5); Neutrophil # 13.39 X10^3/uL (2.7-7.7); Platelet Count 214 K/mm3 (150-450); RBC Distribution Width CV 12.1 % (11.6-14.6); RBC Distribution Width SD 43.4 fl (35.1-43.9); Red Blood Count 3.81 M/mm3 (4.2-5.4); White Blood Count 15.2 K/mm3 (4.4-11.0)
[2019-02-11 00:34] LABS: ALB/GLOB Ratio 0.9 RATIO (0.9-2.4); AST(SGOT) 94 U/L (15-37); Alanine Aminotransfer ALT/SGPT 79 U/L (13-56); Albumin, Serum 3.3 g/dL (3.2-5.0); Alkaline Phosphatase 107 U/L (45-117); Anion Gap 6 (5-15); BUN 20 mg/dL (7-18); BUN/Creat Ratio 19.8 RATIO (10-20); Calcium,Total 9.3 mg/dL (8.5-10.1); Chloride 107 mmol/L (98-107); Creatinine, Serum 1.01 mg/dL (0.55-1.02); EST Glomerular Filtration Rate 57 mL/min (>60); Est Glom Filt Rate - Afr Amer 69 mL/min (>60); Estimated Creatinine Clearance 34.04 ml/min; Globulin 3.6 g/dL (2.2-4.2); Glucose 175 mg/dL (74-106); Lipase 495 U/L (73-393); Potassium 3.8 mmol/L (3.5-5.1); Protein, Total 6.9 g/dL (6.4-8.2); Sodium Level 143 mmol/L (136-145)
--- NOTE | 2019-02-11 00:45 | CT_ITS ---
STUDY: CT ABDOMEN AND PELVIS WITHOUT CONTRAST REASON FOR EXAM: Female, 78 years old. N/V/D CHOLECYSTITIS. Pt had IV contrast on prev scan dated 02/10/19 at 1630. RADIATION DOSAGE (If Supplied By Facility): CTDIvol = ( 6.04 ) mGy, DLP = ( 279.35 ) mGycm TECHNIQUE: Transaxial 2.5 mm images were obtained from the dome of the diaphragm to the symphysis pubis without oral contrast, and without intravenous contrast. Sagittal and coronal images were reconstructed. Individualized dose optimization techniques were used for this CT. COMPARISON: CT chest and abdomen 02/10/2019. FINDINGS: Calcified nodule in the left lower lobe, noncalcified nodules in the right middle lobe, hyperinflation, mild nonspecific compression of the dependent parenchyma. There is a large retrocardiac hernia. There is coronary artery calcification. Mild nodular contour of the liver. At least 11 cm distended gallbladder with limited contour, suspicion for wall thickening, pericholecystic fluid. No overt gallbladder calculi detected. There is mild intrahepatic and extrahepatic biliary ductal system dilatation. There are multiple benign calcified granulomata of the spleen. Normal pancreas. Normal bilateral adrenal glands. Mild decrease in renal size, with contrast excretion bilaterally into the urinary bladder. Normal small intestine. There are predominately sigmoid colonic diverticula consistent with diverticulosis. The appendix is visualized and appears normal. There is mild atherosclerotic calcification of the abdominal aorta, without a demonstrated aneurysm. Normal inferior vena cava. Normal retroperitoneum. Normal urinary bladder. Normal abdominal wall. There are diffuse degenerative changes of the visualized lumbar spine. CT/Abdomen/Pelvis without Cont IMPRESSION: Persistent significant distention of the gallbladder with mild intra and extrahepatic biliary ductal dilatation, there is probable pericholecystic fluid better seen on the previous contrast enhancement, the wall is indistinct and appears slightly thickened on current exam. There is trace subhepatic fluid. Acute cholecystitis possible acalculous may be present. Large retrocardiac hernia, sigmoid diverticulosis, remote granulomatous exposure, mild renal involution, degenerative changes, mild arteriosclerosis felt to be nonacute findings. Nodularity of the liver may indicate mild cirrhotic changes. Electronically Signed: Tiffanie Yap MD at 2:02 EST , Service support ,
[2019-02-11 02:09] VITALS: BP 95/49; PULSE 63; RESP 18; O2SAT 96
[2019-02-11] MEDS: 0.9% Normal Saline 1,000 ML 999 ML IV (02:18)
[2019-02-11 03:41] VITALS: BP 135/52; PULSE 78; RESP 16; O2SAT 97
--- NOTE | 2019-02-11 03:47 | ED.VIS.GI ---
History of Present Illness Chief Complaint: Nausea/Vomiting/Diarrhea Narrative: Patient presenting for evaluation secondary to abdominal pain nausea and vomiting. Patient reports that this afternoon she had an onset of abdominal pain. She was seen in the emergency department for this and was worked up with imaging including CT of the chest abdomen and pelvis as well as lab work. These were found to be unremarkable, the patient was discharged home in improved condition after treatment with medications. Patient apparently this evening had reemergence of her nausea and vomiting abdominal pain, and her daughter brought her back in for further evaluation. She denies any diarrhea associated with this. She denies any fevers associated with this. Abdominal pain is basically periumbilical and has no exacerbating relieving factors. Patient reports that historically she had a history of coronary artery disease with stenting back in July. She has been undergoing work-up for outpatient staging of gallbladder removal due to past history of biliary colic, but has not been able to have the procedure yet as she is unable to come off of her antiplatelet medications due to her stenting within the last 6 months. Past Medical History - Allergies and Home Meds Allergies/Adverse Reactions: Allergies No Known Allergies Allergy (Verified 02/10/19 21:14) Primary Care Physician: Mita Morton [Primary Care Provider] - Past Medical History: - - Coronary artery disease, past gallbladder disease Surgical History: cataract Smoking Status: Never smoker Review of Systems All systems negative except as indicated General: Denies: Chills, Fever, Sweats Eyes: Denies: Visual changes - bilaterally, Diplopia ENT: Denies: Rhinorrhea, Sore throat Cardiovascular: Denies: Chest pain, Palpitations Respiratory: Denies: Dyspnea, Cough, Dyspnea on exertion Gastrointestinal: Reports: Abdominal pain, Nausea, Vomiting Genitourinary: Denies: Dysuria, Hematuria, Frequency Musculoskeletal: Denies: Back pain, Extremity Pain Skin: Denies: Rash, Wounds Neurological: Denies: Headache, Weakness, Numbness Physical Exam Vital Signs/Narrative: Vital Signs Pulse Resp BP Pulse Ox 02/11/19 02:09 63 18 95/49 L 96 Inital Vital Signs reviewed: Yes General: Well nourished, Well developed, No Acute Distress Head: Normocephalic, Atraumatic Eyes: Perrl, EOMI ENT: Dry mucous membranes - Minimally dry Neck: Supple, Nontender Cardiovascular: Regular rate, Regular rhythm, No murmurs Respiratory: No distress, CTA bilaterally, Chest nontender Abdomen: Soft, Tender - Periumbilical with slight predominance to the right-hand side, but no right upper quadrant tenderness or Christianson sign Back: Nontender, Normal Inspection Extremities: Nontender, No edema Skin: Normal color, No rash Neurological: Alert, Oriented x3, Cranial nerves II-XII grossly intact, Normal Strength, Normal Sensation Psychological: Normal affect, Normal Mood Diagnostic/Tx/Re-eval - EKG Initial EKG Interpretation: - - Sinus rhythm of 68 with nonspecific T wave flattening isoelectric ST segments no evidence of acute ischemia or arrhythmia - Medical Decision Making Patient presented with abdominal pain nausea and vomiting. Patient had just had lab work and imaging, IV was established patient was given Zofran and fluids. Lab work shows reemergence of a leukocytosis of 15, and elevation of the patient's liver enzymes and lipase from earlier today. Given this presentation a repeat CT was performed. Given the fact that the patient just had a contrast dye load just was not repeated. I did not have ultrasound available to me at this time. CT imaging shows possible early cholecystitis with pericholecystic fluid and dilation of the patient's intra-and extrahepatic ducts. I discussed this with the general surgeon on-call, who states that given the patient's antiplatelet status that she would likely require a percutaneous cholecystostomy tube which is not available at this facility on the weekend. She requested that the patient be transferred. Patient will be transferred to [facility]. Acceptance was gained, and the patient will be transferred. ED Disposition - Plan for ED Patient: Disposition: [facility] Diagnosis: Cholecystitis
[2019-02-11 04:00] VITALS: BP 126/45; PULSE 79; RESP 14; O2SAT 96
== END 2019-02-11 05:27 | disposition short-term general hospital (02) ==
PROVIDERS: Emergency Provider Emergency Medicine; Family Provider Family Medicine; PCP Family Medicine
DX: K81.9 Cholecystitis, unspecified (principal); I25.10 Atherosclerotic heart disease of native coronary artery without angina pectoris; K44.9 Diaphragmatic hernia without obstruction or gangrene; I48.20 Chronic atrial fibrillation, unspecified; I10 Essential (primary) hypertension; E78.00 Pure hypercholesterolemia, unspecified; D64.9 Anemia, unspecified; I25.2 Old myocardial infarction; Z79.02 Long term (current) use of antithrombotics/antiplatelets; Z79.82 Long term (current) use of aspirin; Z79.899 Other long term (current) drug therapy; Z95.5 Presence of coronary angioplasty implant and graft
CPT/HCPCS: 71045; 71260; 74176; 74177; 80048; 80053; 80076; 83690; 84484; 85025; 93005; 96361; 96374; 96375; 96376; 99284; 99285; J7030; Q9967; A4216; J2405

== ENCOUNTER 2021-02-10 13:00 | Outpatient (RCR) | payer MEDICARE, OTHER, SELFPAY ==
--- NOTE | 2021-01-07 13:56 | HP.PTEVAL_ITS ---
Patient's Visit Information RICARDO NUNEZ is a 80 year old F referred to Physical Therapy by Dr. Mita Morton DO with a diagnosis of ataxia and balance issues. Date of Evaluation: 01/07/21 Physical Therapist: DANIELLE Azar - Visit Plan Frequency: 2x /Week Duration: 4 Weeks Plan: 2X/ weeks for 4 weeks and the reassess for Gait training, balance activities, strength training of LE and core with HEP - Subjective Pt reports that the Dr sent her here for exercise. She reports that she does not think that she is having much of a balance problems because she is able to do what she needs to do. She is able to do the laundry, take care of her cats, and she is able to still drive. Her daughter brought her here today. She reports no falls lately but has fallen in the past (few months). She hurt herself when she fell on the cement and tripped and went to the ER. She was bleeding. Pt is a poor historian. She loves alone and daughter is right next door to her. 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 She reports that she cooks most of the time. She does not use a cane at home. She reports that Michele has modified her bathroom so she does not fall. - Objective Sit to stand: able to stand up without using her UE's. Sitting back down pt almost fell off the side of the chair as she did not square up to the chair. Pt had trouble giving subjective information and when asked how to say her last name, she could only spell it. Gait: walks with no AD and increase veering... therapist had to grab pts arm to keep her from veering too far. She walks with shorter strides. FGA: 11. Stairs: up and down recip with 2 hand rails. LE MMT: hip flex B 4-/5, B hip abd 4/5, Pt is able to do 3/5 ROM bridge, B knee flex 4-/5, and B knee ext 4-/5. Pt is able rise up on her heels and her toes with CGA and no UE support. - Balance/Special Test Scores Functional Gait Assessment Score: 11 % Disability: 63.3400 Lower Extremity Functional Score: 46 - Goals Goal 1:: I HEP Goal Time Frame: 4-6 Weeks Goal 2:: Increase LE Strength by 1/2 muscle grade (at time of the eval: LE MMT: hip flex B 4-/5, B hip abd 4/5, Pt is able to do 3/5 ROM bridge, B knee flex 4- /5, and B knee ext 4-/5) Goal Time Frame: 4-6 Weeks Goal 3:: Increase FGA score by 5 points to decrease fall risk (score at the time of eval was 11). Goal Time Frame: 4-6 Weeks Goal 4:: Be able to walk 150 feet without veering with CGA/SBA Goal Time Frame: 4-6 Weeks Goal 5:: Be able to walk 60 feet with horizontal head turns without having to stop and catch her balance. - Rehabilitation Potential Rehabilitation Potential: Good - Anticipated Interventions Patient/Client Instruction: Educate patient on: Condition, Plan of Care For the Purpose of:: To improve muscle performance and motor function, To improve ability to perform ADL's, To improve ability of physical actions for home/community/work/leisure, To improve gait and locomotor functions, To improve endurance, To improve balance, To improve safety with gait Therapeutic Exercise to Include: Strength training, Endurance training, Balance training, Postural training, Gait and locomotor training, Neuromotor development, Active ROM, Dynamic Lumbar Stabilization For the Purpose of:: To improve muscle performance and motor function, To improve ability to perform ADL's, To increase tolerance to activity/condition/position, To improve performance and independence with ADL's, To improve ability of physical actions for home/community/work/leisure, To improve gait and locomotor functions, To improve health of tissue, To improve balance, To improve safety with gait Functional Training to Include: Gait training For the Purpose of:: To improve gait and locomotor functions, To improve safety with gait Thank you for the opportunity to evaluate your patient. For Medicare and Medicare HMO plans, please review the plan of care and approve it. It will need to be FAXED BACK to us at [phone] for Medicare purposes. For Medicare only, by signing this I certify the plan of care. Please let me know if there are questions or concerns regarding this plan of care. Physician Signature: Date:
--- NOTE | 2021-01-07 15:30 | HP.OTEVAL_ITS ---
Patient's Visit Information RICARDO NUNEZ is a 80 year old F, referred to Occupational Therapy by Dr. Mita Morton DO, with a diagnosis of OA. Date of Evaluation: 01/07/21 Occupational Therapist: Adela Molina, OTR/Saul, CHT - Subjective This 80 year old female was seen for OT with dx of OA of bilateral hands- pt states states she was dx of psoriatic arthritis with iritis- pt states she has pain in bilateral hands but she continues to perform her ADLS. pt states she just finished physical therapy for her right shoulder. pt states due to weakness and limited ROM of bilateral hands her ability to perform ADLs and IADls are compromised. pt would like to know what she can do to protect her joints and gain more ind. with ADLs and IADLs - Pain Bilateral hand pain 3 Pain Intensity Range: 5 - ROM ROM Comments: pt demo bilateral hand deformities of DIP. right IF PIP 0/95 left 0/120. right MF -30/105 left 0/105. right RF -25/105 left 0/105. right LF - 20/100 left 0/105 - Strength Transportation Coordinator: right 15# left 10# Strength Comments: pt demo with bilateral hand weakness - Sensation Sensation Comments: states tingling on left LF and RF. denies right - Hand/Wrist Evaluation Total Score of Pain & Functional Sections: 44 - Goals Goal:: pt will demo a increase in bilateral lumber puller strength by 10 # or greater by d/c Goal:: pt will demo increase in right PIP digit ext. by 10* or greater to increase pts ability to flatten hand to wash table top or counter off by d.c Goal:: pt will report pain no greater than 1/10 with use of bilateral hands with meal prep and ADLs by d/c Goal:: Pt will demo understanding of joint protection and ergonomics when performing BADLs and IADLs by d/c. Pt will demo understanding of adaptive Equipment use to decrease stress on joints to allow pt to perform BADSL and IADLS at JACQUELINE level. - Rehabilitation General Assessment: Pt was seen for OA in bilateral hands- right increased deformity than left at PIP and thumbs- pt currently limited by pain, weakness and limited ROM increasing need of assist with ADLs and use of adaptive eq. with meal prep. pt would benefit from skilled OT services 1-2x week for 3-4 weeks to assist in return of pts ROM and use of ad/. eq. with ADLS and IADLs to return pt to her PLOF. pt agrees with POC. Rehabilitation Potential: Good - Anticipated Interventions A/AAROM/PROM, Modalities, Orthoses, Joint Protection/Energy Conservation, Ergonomic Education, Fine Motor Coord/Jaylan, ADL Training, Education re assistive Equipment, Education re Diagnosis - Visit Plan Frequency: 1-2x /Week Duration: 3 Weeks TEXT: Thank you for the opportunity to evaluate your patient. For Medicare and Medicare HMO plans, please review the plan of care and approve it. It will need to be FAXED BACK to us at [phone] for Medicare purposes. Please let me know if there are questions or concerns regarding this plan of care. Physician Signature: Date:
--- NOTE | 2021-01-14 10:29 | HP.OTEVAL ---
Patient's Visit Information RICARDO NUNEZ is a 80 year old F, referred to Occupational Therapy by Dr. Mita Morton DO, with a diagnosis of ataxia/balance. Date of Evaluation: 01/14/21 Occupational Therapist: Adela Molina, OTR/Saul, CHT - Subjective This 80 year old female was seen for OT with dx of ataxia and decreased balance. pt demo with OA of bilateral hands- pt arrives with dtr. but she did not stay. pt states she recently went to what i believe is an adult day center- states she gets picked up by van and spends the day - receiving breakfast and lunch- states she engaged in bingo and group exercise. pt states she does not know why she is here for OT. speaking with pts dtr- she has concerns with opening jars, and handwriting. states she just went to [employer] yesterday for the first time and they plan on taking her two times a week to keep pt active. - ADLs Comments: pt states she is MOD I with use of shower chair. states she sits to shower and feels safe \. pt states she lives in a trailer with her dtr. beside her-. pt states she can do her laundry. dtr. does cooking for dinner- pt states she has 4 girls that help her. - ROM ROM Comments: pt demo full UE and digit ROM. noted OA deformities - Strength Shoulder: right/left 4/5 Elbow: right/left 4/5 Aircraft Electronics Technical Officer: right 25# left 30# Lateral Pinch: right 6# left 6# Tripod Pinch: right 6# left 6# Strength Comments: pt demo with bilateral hand weakness - Sensation Sensation Comments: denies - Movement Movement Comments: no noted ataxic UE movement - Nine Hole Peg Right: 35.33 sec. Left: 33.80 sec - Quick DASH-Disab of Arm,Shoulder& Hand Quick DASH Score: 25.0000 - Hand/Wrist Evaluation Total Score of Pain & Functional Sections: 44 - Goals Goal:: pt will demo a increase in bilateral transportation solutions manager strength by 10 # or greater by d/c. pt will demo a increase in bilateral UB mmt 4+/5 to increase pts ind. with ADLs and IADls by d.c Goal:: pt will demo the ability to write legible numbers and sentences with use of adaptive eq. as needed by d.c Goal:: Pt will demo understanding of joint protection and ergonomics when performing BADLs and IADLs by d/c. Pt will demo understanding of adaptive Equipment use to decrease stress on joints to allow pt to perform BADSL and IADLS at JACQUELINE level. - Rehabilitation General Assessment: pt arrives to OT without hearing aides and is poor historian- pt demo with weakness and decline in legible handwriting increase need of assistance from others. pt would benefit from skilled OT services 2x week for 4 weeks. to increase pts ind. with ADls and IADls. Rehabilitation Potential: Good - Anticipated Interventions Strengthening, Joint Protection/Energy Conservation, Ergonomic Education, Fine Motor Coord/Jaylan, Education re assistive Equipment, Education re Diagnosis - Visit Plan TEXT: Thank you for the opportunity to evaluate your patient. For Medicare and Medicare HMO plans, please review the plan of care and approve it. It will need to be FAXED BACK to us at [phone] for Medicare purposes. Please let me know if there are questions or concerns regarding this plan of care. Physician Signature: Date:
--- NOTE | 2021-02-10 15:01 | HP.PTDCSUM_ITS ---
It has been my pleasure to treat RICARDO NUNEZ referred by Dr. Mita Morton DO, with the diagnosis of ataxia and balance issues for a total of 8 visit(s). Discharge Date: 02/10/21 Please see the following information for a summary of their discharge status. Subjective: Pt reports that she is doing well. She feels that her balance is doing better. She is doing her laundry etc. She has not fallen lately. Pt is not doing her exercises at home. She is not falling and can do all she needs too, She feels that she is ready to be done with PT. % Improvement: 100 Objective/Function: FGA: 24. Pt is able to walk with horizontal head turns without veering. LE MMT: hip flex B 4/5, B hip abd 4/5, Pt is able to do full ROM bridge, B knee flex 4/5, and B knee ext 4/5) Goal 1:: I HEP Goal Progress: Progressing Goal 2:: Increase LE Strength by 1/2 muscle grade (at time of the eval: LE MMT: hip flex B 4-/5, B hip abd 4/5, Pt is able to do 3/5 ROM bridge, B knee flex 4- /5, and B knee ext 4-/5) Goal Progress: Goal Met Goal 3:: Increase FGA score by 5 points to decrease fall risk (score at the time of eval was 11). Goal Progress: Goal Met Goal 4:: Be able to walk 150 feet without veering with CGA/SBA Goal Progress: Goal Met Goal 5:: Be able to walk 60 feet with horizontal head turns without having to stop and catch her balance. Goal Progress: Goal Met Plan: DC PT at this time Discharge Comments: DC PT If there are questions or concerns regarding this patient's physical therapy, please feel free to call me at [phone]. Thank you for the referral of this patient. Sincerely, Haily Zuleta, MPT Balance/Gait/Functional tests - Balance/Special Test Scores Functional Gait Assessment Score: 24 % Disability: 20.0000 Lower Extremity Functional Score: 62
== END 2021-02-10 19:00 | disposition home or self-care (01) ==
LOC: PT 13:00
PROVIDERS: PCP Family Medicine; Referring Provider Family Medicine; Visit Provider Family Medicine
DX: R27.0 Ataxia, unspecified (principal)
CPT/HCPCS: 97110; 97161; 97166; 97530

== ENCOUNTER 2021-05-09 10:00 | Outpatient (RCR) | payer MEDICARE, OTHER, SELFPAY ==
--- NOTE | 2021-04-09 14:42 | HP.PTEVAL ---
Patient's Visit Information RICARDO NUNEZ is a 80 year old F referred to Physical Therapy by Dr. Mita Morton DO with a diagnosis of debility. Date of Evaluation: 04/09/21 Physical Therapist: Matt Huitron DPT, OCS, CSCS - Visit Plan Frequency: 2x /Week Duration: 4 Weeks Plan: 2x/week for 4 weeks for teach LE and core and ec/foam balance ex patient can eventually do at home with pics. - Subjective Daughter dropped her off and did not attend the session. My daughter says I need PT for falling and hitting head over L eye. That fall was off bed in bedroom. Pt poor historian and daughter not here stating it was a day ago. She does not know why she fell but it was getting up from bed one morning. No other falls. Cats can get by feet but no other falls. Does not feel weak. Not employed. No pain. No dizzyness. No neuropathy. Sleeps well. No regular exercise. Spends day doing whatever...making own bed and laundry and dishes and cleaning. Lives alone with daughter next door and patient lives in trailer. Her is Elder and he put in on railing for her. Dresses self, bathroom and shower I in walk in shower. Enjoys going out to eat and playing bingo. Hard time remembering where she goes. She drives and has her own honda Goes there in a van once per week (describing elder day care. 1x/week) - Objective Oriented to date, not day. Oriented to name. oriented to place to exercise and city. Pt has a hard time answering questions that require thought to them such as whether she can drive to therapy, if she does home exercises, but does remember simple things like where the steps are. She does not use cane or walker. Walks I, transfers I, bed trasnfers I, steps reciprocal without one rail. LE AROM WFL and strength at 3+. Motor control in following directions to move LE take extra time but can do it well. reflexes 2/3 patella and achilles. Minor tightness in HS and gastroc present. Sensation LE WNL to gross light touch. - Balance/Special Test Scores Functional Gait Assessment Score: 22 % Disability: 26.6700 CATSIB Score (Max score 120 seconds): 103 Dizziness Score: 28 TUG Test Time Seconds: 13 30 Second Chair Rise Test Seconds: 12 - Goals Goal 1:: I approp HEP to minimize fall risk Goal Time Frame: 2-4 Weeks Goal 2:: 14 sit to supervisor tunnel heading 30 seconds and less than 10 sec TUG. Goal Time Frame: 2-4 Weeks - Rehabilitation Potential Physical Therapy Diagnosis: some minor weakness and debility possibly leading to fall risk. Rehabilitation Potential: Fair - Anticipated Interventions Patient/Client Instruction: Educate patient on: Condition, Plan of Care For the Purpose of:: To improve muscle performance and motor function, To increase tolerance to activity/condition/position, To improve ability of physical actions for home/community/work/leisure Therapeutic Exercise to Include: Strength training, Balance training For the Purpose of:: To improve muscle performance and motor function, To improve gait and locomotor functions Thank you for the opportunity to evaluate your patient. For Medicare and Medicare HMO plans, please review the plan of care and approve it. It will need to be FAXED BACK to us at [phone] for Medicare purposes. For Medicare only, by signing this I certify the plan of care. Please let me know if there are questions or concerns regarding this plan of care. Physician Signature: Date:
--- NOTE | 2021-05-09 10:45 | HP.PTDCSUM ---
It has been my pleasure to treat RICARDO NUNEZ referred by Dr. Mita Morton DO, with the diagnosis of debility for a total of 9 visit(s). Discharge Date: 05/09/21 Please see the following information for a summary of their discharge status. Subjective: Feeling better, I am working out at home daily. Feeling stronger and energetic. No falls lately. She plays with cat at home and stays busy. Does laundry and bed and food herself. Feels like she can do her exercises at home vs more frequent therapy. % Improvement: 50 Objective/Function: Much better TUG, 30 sec test and FGA today. Doing well overall and willoing to continue HEP Goal 1:: I approp HEP to minimize fall risk Goal Progress: Goal Met Goal 2:: 14 sit to online marketing strategist 30 seconds and less than 10 sec TUG. Goal Progress: Goal Met Plan: d/c to HEP. If there are questions or concerns regarding this patient's physical therapy, please feel free to call me at [phone]. Thank you for the referral of this patient. Sincerely, Matt Huitron, DPT, OCS, CSCS Balance/Gait/Functional tests - Balance/Special Test Scores Functional Gait Assessment Score: 25 % Disability: 16.6700 CATSIB Score (Max score 120 seconds): 103 Dizziness Score: 0 TUG Test Time Seconds: 10 Tug Test: <10 sec.=free mobile 30 Second Chair Rise Test Seconds: 22
== END 2021-05-09 12:19 | disposition home or self-care (01) ==
LOC: PT 10:00
PROVIDERS: PCP Family Medicine; Referring Provider Family Medicine; Visit Provider Family Medicine
DX: R54 Age-related physical debility (principal)
CPT/HCPCS: 97110; 97161; 97164

== ENCOUNTER 2022-05-12 09:30 | Observation (INO) | payer MEDICARE, OTHER, SELFPAY ==
[2022-05-12 09:32] VITALS: BP 126/76; PULSE 78; RESP 16; TEMP 36.6; O2SAT 98; BMI 22.6
--- NOTE | 2022-05-12 09:58 | EDS_ITS ---
HPI History of Present Illness Chief Complaint: Foreign Body Detail of Chief Complaint: Difficulty swallowing Informant: patient and family Narrative Narrative: Patient brought to the emergency department by her daughter for complaint of di fficulty swallowing. Patient apparently was having a hard time swallowing her meal yesterday. She had a hard time swallowing her pills today. Patient has history of EGD with esophageal dilatation around of 2021. She per daughter had been doing relatively well until recently. She had had 1 prior dilatation years ago. Patient currently at assisted living facility. Patient has history of dementia and is somewhat of a poor historian. Apparently she is able to swallow liquids. Her last dilatation was in [place]. [facility] Medical History (Updated 05/12/22 @ 11:[address] Zonia Benitez, DO) Anemia Atherosclerotic heart disease of [place] coronary artery without angina pectoris Dyslipidemia Gallstone of bile duct with gallbladder inflammation h/o throat surgery H/O transfusion of whole blood Hx of blood clots Hyperlipidemia Hypertension Iron deficiency anemia, unspecified Paroxysmal atrial fibrillation Persistent atrial fibrillation Home Medications Atorvastatin Calcium 80 mg PO DAILY 10/18/18 [History Last Taken Unknown] Omeprazole [Prilosec] 40 mg PO DAILY 10/18/18 [History Last Taken Unknown] aspirin 81 mg chewable tablet 81 mg PO DAILY@0800 10/18/18 [History Last Taken Unknown] clopidogrel 75 mg tablet 75 mg PO DAILY 10/18/18 [History Last Taken Unknown] dicyclomine 10 mg capsule 10 mg PO TIDAC 10/18/18 [History Last Taken Unknown] metoprolol tartrate 25 mg tablet 25 mg PO BID 10/18/18 [History Last Taken Unknown] multivitamin with minerals 1 tab PO DAILY 10/18/18 [History Last Taken Unknown] potassium chloride 10 mEq tablet,extended release 10 meq PO DAILY 10/18/18 [History Last Taken Unknown] psyllium husk (aspartame) 3.4 gram oral powder packet 1 packet PO DAILY PRN Heartburn Or Indigestion 10/18/18 [History Last Taken Unknown] sertraline 50 mg tablet 50 mg PO DAILY 10/18/18 [History Last Taken Unknown] torsemide 20 mg tablet 20 mg PO DAILY 10/18/18 [History Last Taken Unknown] ursodiol 300 mg capsule 300 mg PO BID 10/18/18 [History Last Taken Unknown] donepezil 10 mg tablet 10 mg PO DAILY 02/10/19 [History Last Taken Unknown] pantoprazole 40 mg tablet,delayed release 40 mg PO DAILY #30 tabs 02/10/19 [Rx Last Taken Unknown] nirmatrelvir 300 mg (150 mg x2)-ritonavir 100 mg tablet,dose pack(EUA) (Paxlovid) See Rx Instructions PO .COMPLEX #30 tabs 08/15/21 [Rx Last Taken Unknown] Allergy/AdvReac Type Severity Reaction Status Date / Time No Known Allergies Allergy Verified 08/15/21 15:43 Family History Other no pertinent family medical hsitory Surgical History H/O colonoscopy H/O eye surgery H/O heart artery stent Social History Smoking Status: Never smoker ROS ROS ED Review of Systems ROS Unobtainable: other Constitutional Constitutional ED: Reports lethargy; Denies chills, fever(s), sweats or weight loss Eyes Eyes: Denies blurry vision, change in vision or diplopia ENT ENT ED: Denies rhinorrhea or sore throat Cardiovascular Cardiovascular: Denies chest pain, orthopnea or racing heartbeat Respiratory/Chest Respiratory/Chest: Denies cough, dyspnea, dyspnea on exertion, orthopnea or sputum Gastrointestinal Gastrointestinal: Reports other Details: Difficulty swallowing ; Denies abdominal pain, diarrhea, nausea or vomiting Genitourinary Genitourinary ED: Denies dysuria, hematuria or urinary frequency Musculoskeletal Musculoskeletal: Denies arthralgias, back pain, myalgias or neck pain Integumentary Denies abscess, Abrasions or rash Neurologic Neurologic: Denies headache(s) or weakness Psychiatric Psychiatric: Denies anxiety, depression or suicidal thoughts Endocrine Endocrinology: Denies polydipsia, polyphagia or polyuria Hematologic/Lymphatic Hematologic/Lymphatic: Denies easy bleeding, easy bruising or lymphadenopathy Allergic/Immunologic Allergic/Immunologic ED: Denies mouth swelling, tongue swelling or urticaria EXAM Physical Exam Const Vital Signs: 05/12/22 09:32 05/12/22 10:17 Temperature 97.8 F Temperature Source Temporal Pulse Rate 78 Respiratory Rate 16 Respiratory Effort Normal Non-Labored Respiratory Pattern Normal Blood Pressure 126/76 H Blood Pressure Mean 92 Pulse Ox 98 Oxygen Delivery Method Room Air Positive well nourished and well developed General Appearance ED: well developed and NAD HEENT Reports TM's clear and moist mucous membranes normocephalic and atraumatic; Negative for trauma or tenderness Tympanic Membrane ED: Yes TM's clear Eyes PERRL and EOMs intact bilaterally General Eye ED: Negative for pale conjunctiva or scleral icterus Neck no lymphadenopathy, supple and no JVD General: Negative for tenderness Chest Wall inspection of chest normal and palpation of chest normal Chest: Negative for tenderness Resp normal respiratory effort and clear to auscultation bilaterally Effort and Inspection: Negative for respiratory distress or pain with movement Auscultation: Negative for rhonchi, wheezes or diminished lung sounds Cardio regular rate, regular rhythm, S1 normal heart sound, S2 normal heart sound and no murmurs Peripheral Pulses: pulses 2+ throughout GI normal to inspection, nondistended, normoactive bowel sounds, soft to palpation, non-tender, non-distended and no masses Back/Spine no CVA tenderness and no thoracic nor lumbar tenderness Extremity normal to inspection General Extremety ED: Negative for edema General Extremity: Negative for edema Neuro oriented x3, CN's II-XII intact bilaterally, no sensory deficits noted and gait normal Sensorium / Orientation: awake, alert, oriented to person, oriented to place and oriented to time Motor Exam: strength 5/5 throughout and strength abnormal Psych mental status grossly normal Skin no rashes or lesions noted and no wounds MDM MDM MDM Narrative Medical decision making narrative: Patient was given water which she was able to swallow without difficulty. I discussed case with counter supervisor on-call Dr. Herrera. He felt admitting the patient would be reasonable and he can see her in consultation to evaluate for possible EGD or other intervention. We will discuss case with hospitalist for admission. Lab Data Attestation: I reviewed the patient's lab results. Labs: Laboratory Results - last 24 hr 05/12/22 05/12/22 10:15 10:15 WBC 5.6 RBC 3.40 L Hgb 9.4 L Hct 30.6 L MCV 90.0 MCH 27.6 MCHC 30.7 L RDW Std Deviation 42.2 RDW Coeff of [place]en 12.9 Plt Count 175 MPV 11.5 Immature Gran % (Auto) 0.200 Neut % (Auto) 70.4 H Lymph % (Auto) 17.0 L Glenn % (Auto) 8.8 Eos % (Auto) 2.9 Baso % (Auto) 0.7 Absolute Neuts (auto) 4.0 Absolute Lymphs (auto) 0.95 Nucleated RBC % 0 Sodium 139 Potassium 3.9 Chloride 107 Carbon Dioxide 29.0 Anion Gap 3 L BUN 22 H Creatinine 0.88 Estim Creat Clear Calc 40.09 Est GFR (MDRD) Af Amer 80 Est GFR (MDRD) Non-Af 66 BUN/Creatinine Ratio 25.1 H Glucose 99 Calcium 9.0 Radiography Chest X-Ray - ED: 1 View Diagnostic Testing: Clinical Impression(s) from Imaging Studies Chest X-Ray 05/12/22 10:00 IMPRESSION: No acute abnormality is seen. Large hiatal hernia. Electronically Signed: Demar Toscano MD at 10:11 EDT , 1 view chest x-ray obtained interpreted by myself as no evidence of infiltrate or pneumothorax or other acute disease process. Incidentally noted was a hiatal hernia. Radiology was in agreement. Discharge Plan Triage Chief Complaint: Foreign Body ED Provider: Zonia Benitez Dx/Rx/DC Orders Clinical Impression: Dysphagia, History of esophageal stricture, History of hypertension Prescriptions: No Action Paxlovid (EUA) 300 mg (150 mg x 2)-100 mg tablet See Rx Instructions PO .COMPLEX Qty: 30 0RF Rx Instructions: take TWO 150 mg tablets of nirmatrelvir with ONE 100 mg tablet of ritonavir twice daily for 5 days PO Atorvastatin Calcium 80 MG tablet 80 mg PO DAILY torsemide 20 MG tablet 20 mg PO DAILY potassium chloride 10 MEQ tablet extended release 10 meq PO DAILY clopidogrel 75 MG tablet 75 mg PO DAILY ursodiol 300 MG capsule 300 mg PO BID aspirin 81 MG tablet,chewable 81 mg PO DAILY@0800 multivitamin with minerals 1 EACH tablet 1 tab PO DAILY sertraline 50 MG tablet 50 mg PO DAILY dicyclomine 10 MG capsule 10 mg PO TIDAC metoprolol tartrate 25 MG tablet 25 mg PO BID psyllium husk (aspartame) 1 PACKET packet 1 packet PO DAILY PRN (Reason: Heartburn Or Indigestion) Omeprazole [Prilosec] 40 MG capsule 40 mg PO DAILY donepezil 10 MG tablet 10 mg PO DAILY pantoprazole 40 MG tablet 40 mg PO DAILY Qty: 30 0RF Primary Care Provider: Mita Morton Referrals: Mita Morton, [Primary Care Provider] - Disposition Disposition: Acute Care Hospital [facility]
--- NOTE | 2022-05-12 10:00 | RAD_ITS ---
STUDY: X-RAY CHEST REASON FOR EXAM: Female, 81 years old. Difficulty swallowing TECHNIQUE: Single AP portable view of the chest. COMPARISON: Comparison is made with prior study dated February 10, 2019. FINDINGS: The lungs are clear and expanded. There is no demonstrated pleural abnormality. Normal size heart. Normal mediastinum and tim. Normal visualized pulmonary arteries. There is atherosclerotic calcification of the aortic arch with tortuosity. Normal visualized thoracic spine. There is degenerative osteoarthritis of the bilateral shoulders. Deformity of the surgical neck of the proximal right humerus in keeping with a healed fracture. Large hiatal hernia. RAD/Chest 1 View (Portable) IMPRESSION: No acute abnormality is seen. Large hiatal hernia. Electronically Signed: Demar Toscano MD at 10:11 EDT ,
[2022-05-12 10:23] LABS: Absolute Lymphocyte Count 0.95 X10^3/uL (0.83-4.51); Basophil# 0.04 X10^3/uL; Basophil% 0.7 % (0-1); Eosinophil# 0.16 X10^3/uL; Eosinophils% 2.9 % (0-5); Hematocrit 30.6 % (37-47); Hemoglobin 9.4 g/dL (12.0-15.0); Lymphocyte # 0.95 X10^3/ul (0.83-4.51); Mean Corp Hgb Conc 30.7 g/dL (32-36); Mean Corpuscular Hgb 27.6 pg (27.0-32.0); Mean Platelet Vol. 11.5 fl (6.2-12.0); Monocyte# 0.49 X10^3/uL; Monocyte% 8.8 % (0-10); NRBC Flagged by Analyzer 0 % (0-5); Neutrophil # 3.95 X10^3/uL (2.7-7.7); Neutrophil % 70.4 % (47-70); Platelet Count 175 K/mm3 (150-450); RBC Distribution Width CV 12.9 % (11.6-14.6); RBC Distribution Width SD 42.2 fl (35.1-43.9); White Blood Count 5.6 K/mm3 (4.4-11.0)
[2022-05-12 10:36] LABS: Anion Gap 3 (5-15); BUN 22 mg/dL (7-18); BUN/Creat Ratio 25.1 RATIO (10-20); Chloride 107 mmol/L (98-107); Creatinine, Serum 0.88 mg/dL (0.55-1.02); EST Glomerular Filtration Rate 66 mL/min (>60); Est Glom Filt Rate - Afr Amer 80 mL/min (>60); Estimated Creatinine Clearance 40.09 ml/min; Glucose 99 mg/dL (74-106); Potassium 3.9 mmol/L (3.5-5.1); Sodium Level 139 mmol/L (136-145)
--- NOTE | 2022-05-12 11:11 | NURSING ---
DR EVANS FOR DR SWANN
--- NOTE | 2022-05-12 11:15 | HP.PCM.HOS_ITS ---
HPI - General General Date of Admission: 05/12/22 HPI Narrative RICARDO NUNEZ, is a 81 F who presents to the hospital with difficulty swallowing. This has been an ongoing issue she had a previous esophageal dilatation years ago and then had another 1 at a hospital in [place] in January 2022. She has been having increasing difficulty swallowing and this morning had difficulty swallowing her pills. She was able to eat and drink in the ER and she has not been losing any weight. No nausea or vomiting. She was brought to the emergency room because of a concern for not being able to swallow her pills it does not appear that any outpatient management has been sought so far. Imaging demonstrates a large hiatal hernia. Unfortunately secondary to her dementia she is a poor historian and there is no family at bedside so information was obtained from chart review and discussing the case with the ED physician. [facility] Medical History (Updated 05/12/22 @ 12:41 by Lyn Minor) Anemia Atherosclerotic heart disease of [place] coronary artery without angina pectoris Dementia Diabetes Dyslipidemia Gallstone of bile duct with gallbladder inflammation h/o throat surgery H/O transfusion of whole blood Hx of blood clots Hyperlipidemia Hypertension Iron deficiency anemia, unspecified Paroxysmal atrial fibrillation Persistent atrial fibrillation Wears hearing aid in both ears Home Medications Atorvastatin Calcium 80 mg PO DAILY 10/18/18 [History Last Taken Unknown] Omeprazole [Prilosec] 40 mg PO DAILY 10/18/18 [History Last Taken Unknown] aspirin 81 mg chewable tablet 81 mg PO DAILY@0800 10/18/18 [History Last Taken Unknown] clopidogrel 75 mg tablet 75 mg PO DAILY 10/18/18 [History Last Taken Unknown] potassium chloride 10 mEq tablet,extended release 10 meq PO BID 10/18/18 [H istory Last Taken Unknown] sertraline 50 mg tablet 50 mg PO DAILY 10/18/18 [History Last Taken Unknown] torsemide 20 mg tablet 20 mg PO DAILY 10/18/18 [History Last Taken Unknown] clotrimazole 10 mg sophie 10 mg PO TID PRN PRN Mouth Irritation 05/12/22 [History Last Taken Unknown] memantine 10 mg tablet 10 mg PO DAILY 05/12/22 [History Last Taken Unknown] metformin 500 mg tablet 500 mg PO BID 05/12/22 [History Last Taken Unknown] metoprolol tartrate 25 mg tablet 12.5 mg PO DAILY 05/12/22 [History Last Taken Unknown] mirtazapine 15 mg tablet 15 mg PO QHS 05/12/22 [History Last Taken Unknown] oxybutynin chloride 5 mg tablet 5 mg PO BID 05/12/22 [History Last Taken Unknown] tizanidine 4 mg tablet 4 mg PO TID PRN PRN Muscle Spasm 05/12/22 [History Last Taken Unknown] Allergy/AdvReac Type Severity Reaction Status Date / Time ticagrelor [From Brilinta] Allergy Shortness Verified 05/12/22 12:19 of breath Family History Other no pertinent family medical hsitory Surgical History H/O colonoscopy H/O eye surgery H/O heart artery stent Social History Smoking Status: Never smoker ROS Constitutional Constitutional: Denies chills, fatigue, fever(s) or malaise Eyes Eyes: Denies blurry vision ENT HEENT: Denies headache(s) or nasal discharge Cardiovascular Cardiovascular: Denies chest pain, dyspnea on exertion or syncope Respiratory/Chest Respiratory/Chest: Denies cough, shortness of breath at rest or shortness of breath with exertion Gastrointestinal Gastrointestinal: Reports dysphagia; Denies constipation, diarrhea, nausea or vomiting Genitourinary Genitourinary: Denies dysuria Neurologic Neurologic: Denies focal weakness, numbness or tremor(s) Psychiatric Psychiatric: Denies anxiety or depression Vital Signs Vital Signs Vital Signs: 05/12/22 09:32 05/12/22 10:17 Temperature 97.8 F Temperature Source Temporal Pulse Rate 78 Respiratory Rate 16 Respiratory Effort Normal Non-Labored Respiratory Pattern Normal Blood Pressure 126/76 H Blood Pressure Mean 92 Pulse Ox 98 Oxygen Delivery Method Room Air Weight Weight: 108 lb Body Mass Index (BMI) 22.6 Physical Exam Narrative General: Alert, confused, Cooperative, No apparent distress HEENT: Atraumatic, PERRLA, EOMI, Normocephalic, hard of hearing hearing aid is in Oral: Moist Mucosa Neck: Supple, No JVD Lungs: Diminished, Normal air movement, No rhonchi, No wheeze, No rales Cardiovascular: Regular rate, Regular Rhythm, Normal S1, Normal S2, No murmurs Abdomen: Soft, Non Tender, Non-Distended, No Hepato-splenomegaly Extremities: No edema, Capillary Refill Less than 3 Seconds Skin: No rashes, No breakdown Musculoskeletal: No Tenderness to Palpation of Joints or Extremities Neurological: Cranial nerves II-XII grossly intact, Motor Exam 5/5 strength throughout, Sensory exam intact to light touch and pain Psych/Mental Status: Normal Affect, Appropriate Results Lab / Micro Data Result Diagrams: 05/12/22 10:15 05/12/22 10:15 Labs: Laboratory Results - last 24 hr 05/12/22 10:15: WBC 5.6, RBC 3.40 L, Hgb 9.4 L, Hct 30.6 L, MCV 90.0, MCH 27.6, MCHC 30.7 L, RDW Std Deviation 42.2, RDW Coeff of Galen 12.9, Plt Count 175, MPV 11.5, Immature Gran % (Auto) 0.200, Neut % (Auto) 70.4 H, Lymph % (Auto) 17.0 L, [place] % (Auto) 8.8, Eos % (Auto) 2.9, Baso % (Auto) 0.7, Absolute Neuts (auto) 4.0, Absolute Lymphs (auto) 0.95, Nucleated RBC % 0 05/12/22 10:15: Sodium 139, Potassium 3.9, Chloride 107, Carbon Dioxide 29.0, Anion Gap 3 L, BUN 22 H, Creatinine 0.88, Estim Creat Clear Calc 40.09, Est GFR (MDRD) Af Amer 80, Est GFR (MDRD) Non-Af 66, BUN/Creatinine Ratio 25.1 H, Glucose 99, Calcium 9.0 Radiology Impression Chest X-Ray 05/12/22 10:00 IMPRESSION: No acute abnormality is seen. Large hiatal hernia. Electronically Signed: Demar Toscano MD at 10:11 EDT , Assessment & Plan Assessment/Plan (1) Dysphagia: PLAN: Plan 1. Dysphagia ? She has had 2 previous dilatations ? Imaging demonstrates a large hiatal hernia ? She is able to eat and drink and has not lost any weight ? We will consult GI for EGD, likely need to be n.p.o. after midnight 2. CAD status post/HTN/HLD/A-fib ? She is not on any anticoagulation ? Continue with her home blood pressure and cholesterol medications ? Continue with her Plavix 3. DM2 ? Hold her metformin ? We will place her on a sliding scale insulin with Accu-Cheks ACHS ? We will make adjustments as necessary 4. GERD ? Stable ? Continue with PPI 5. Anxiety/depression/dementia ? Stable ? Continue with her home medications DVT: SCDs 75 minutes was spent [id number], as well as chart review and documentation and discussing the case with colleagues Charges/Coding Visit Charges Inpatient E&M: 47451 Init Hosp L3
--- NOTE | 2022-05-12 11:20 | NURSING ---
MED SURG OBS KOTSONIS DYSPHAGIA, HX OF ESOPHAGEAL STRICTURE, HX OF HYPERTENSION
[2022-05-12 12:00] VITALS: BP 130/78; PULSE 76; RESP 16; TEMP 36.6; O2SAT 100
[2022-05-12 12:18] VITALS: BMI 19.7
[2022-05-12] MEDS: Ensure Plus High Protein 120 ML LIQUID PO (15:02)
--- NOTE | 2022-05-12 15:49 | CHAPLAIN ---
Type of Pastoral Visit _x__ Initial Visit ___ Follow-up Visit ___ On-call Visit ___ General Patient Visit ___ Spiritual Assessment ___ Family Conference ___ Bereavement ___ Rapid Response ___ Code Blue ___ Other (describe below) Pastoral Care Referral From _x__ Patient ___ Family ___ Nurse ___ Physician ___ Treasurer ___ Campground Attendant ___ Other (describe below) Sacrament/Intervention ___ Active listening ___ Anointing ___ Restoration ___ Bereavement ___ Communion ___ Rosa exploration ___ ___ Life review _x__ Prayer ___ Reconciliation ___ Sacrament of Sick _x__ Supportive presence ___ Wedding ___ Other (describe below) Pastoral Comments patient is awake in the bed; pt is pleasant and states she is fine; pt is able to answer questions but hesitates with some answers and is unsure about some details; pt says her daughters are here somewhere and evidenced in the room that other people are present in the hospital; 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
[2022-05-12 17:12] VITALS: BP 137/74; PULSE 73; RESP 18; TEMP 36.8; O2SAT 98
[2022-05-12 17:35] LABS: Bedside Glucose 110 mg/dL (74-106)
--- NOTE | 2022-05-12 18:44 | EX.PCM.CON.G ---
HPI Consult Data Date of Consult: 05/12/22 HPI Narrative Reason for Consultation: Dysphagia HPI Narrative: RICARDO NUNEZ, is a 81 F who presents with trouble swallowing. She was brought to the emergency department by her daughter for complaint of difficulty swallowing.? Patient apparently was having a hard time swallowing her meal yesterday.? She had a hard time swallowing her pills today.? Patient has history of EGD with esophageal dilatation around 2021.? She per daughter had been doing relatively well until recently.? She had had 1 prior dilatation years ago.? Patient currently at assisted living facility.? Patient has history of dementia and is somewhat of a poor historian.? Apparently she is able to swallow liquids.? Her last dilatation was in [place]. ?Imaging demonstrates a large hiatal hernia. [facility] Medical History (Updated 05/12/22 @ 18:[address] Nevarez Friend, DO) Anemia Atherosclerotic heart disease of [place] coronary artery without angina pectoris Dementia Diabetes Dyslipidemia Gallstone of bile duct with gallbladder inflammation h/o throat surgery H/O transfusion of whole blood Hx of blood clots Hyperlipidemia Hypertension Iron deficiency anemia, unspecified Paroxysmal atrial fibrillation Persistent atrial fibrillation Wears hearing aid in both ears Home Medications Atorvastatin Calcium 80 mg PO DAILY 10/18/18 [History Last Taken Unknown] Omeprazole [Prilosec] 40 mg PO DAILY 10/18/18 [History Last Taken Unknown] aspirin 81 mg chewable tablet 81 mg PO DAILY@0800 10/18/18 [History Last Taken Unknown] clopidogrel 75 mg tablet 75 mg PO DAILY 10/18/18 [History Last Taken Unknown] potassium chloride 10 mEq tablet,extended release 10 meq PO BID 10/18/18 [History Last Taken Unknown] sertraline 50 mg tablet 50 mg PO DAILY 10/18/18 [History Last Taken Unknown] torsemide 20 mg tablet 20 mg PO DAILY 10/18/18 [History Last Taken Unknown] clotrimazole 10 mg sophie 10 mg PO TID PRN PRN Mouth Irritation 05/12/22 [History Last Taken Unknown] memantine 10 mg tablet 10 mg PO DAILY 05/12/22 [History Last Taken Unknown] metformin 500 mg tablet 500 mg PO BID 05/12/22 [History Last Taken Unknown] metoprolol tartrate 25 mg tablet 12.5 mg PO DAILY 05/12/22 [History Last Taken Unknown] mirtazapine 15 mg tablet 15 mg PO QHS 05/12/22 [History Last Taken Unknown] oxybutynin chloride 5 mg tablet 5 mg PO BID 05/12/22 [History Last Taken Unknown] tizanidine 4 mg tablet 4 mg PO TID PRN PRN Muscle Spasm 05/12/22 [History Last Taken Unknown] Allergy/AdvReac Type Severity Reaction Status Date / Time ticagrelor [From Brilinta] Allergy Shortness Verified 05/12/22 12:19 of breath Family History Other no pertinent family medical hsitory Surgical History H/O colonoscopy H/O eye surgery H/O heart artery stent Social History Smoking Status: Never smoker ROS Constitutional Constitutional: Denies chills, fatigue, fever(s) or malaise Eyes Eyes: Denies blurry vision ENT HEENT: Denies headache(s) or nasal discharge Cardiovascular Cardiovascular: Denies chest pain, dyspnea on exertion or syncope Respiratory/Chest Respiratory/Chest: Denies cough, shortness of breath at rest or shortness of breath with exertion Gastrointestinal Gastrointestinal: Reports dysphagia; Denies constipation, diarrhea, nausea or vomiting Genitourinary Genitourinary: Denies dysuria Neurologic Neurologic: Denies focal weakness, numbness or tremor(s) Psychiatric Psychiatric: Denies anxiety or depression Physical Exam Narrative General: Alert, confused, Cooperative, No apparent distress HEENT: Atraumatic, PERRLA, EOMI, Normocephalic, hard of hearing hearing aid is in Oral: Moist Mucosa Neck: Supple, No JVD Lungs: Diminished, Normal air movement, No rhonchi, No wheeze, No rales Cardiovascular: Regular rate, Regular Rhythm, Normal S1, Normal S2, No murmurs Abdomen: Soft, Non Tender, Non-Distended, No Hepato-splenomegaly Extremities: No edema, Capillary Refill Less than 3 Seconds Skin: No rashes, No breakdown Musculoskeletal: No Tenderness to Palpation of Joints or Extremities Neurological: Cranial nerves II-XII grossly intact, Motor Exam 5/5 strength throughout, Sensory exam intact to light touch and pain Psych/Mental Status: Normal Affect, Appropriate Lab / Micro Data Result Diagrams: 05/12/22 10:15 05/12/22 10:15 Labs: Laboratory Results - last 24 hr 05/12/22 10:15: WBC 5.6, RBC 3.40 L, Hgb 9.4 L, Hct 30.6 L, MCV 90.0, MCH 27.6, MCHC 30.7 L, RDW Std Deviation 42.2, RDW Coeff of Galen 12.9, Plt Count 175, MPV 11.5, Immature Gran % (Auto) 0.200, Neut % (Auto) 70.4 H, Lymph % (Auto) 17.0 L, [place] % (Auto) 8.8, Eos % (Auto) 2.9, Baso % (Auto) 0.7, Absolute Neuts (auto) 4.0, Absolute Lymphs (auto) 0.95, Nucleated RBC % 0 05/12/22 10:15: Sodium 139, Potassium 3.9, Chloride 107, Carbon Dioxide 29.0, Anion Gap 3 L, BUN 22 H, Creatinine 0.88, Estim Creat Clear Calc 40.09, Est GFR (MDRD) Af Amer 80, Est GFR (MDRD) Non-Af 66, BUN/Creatinine Ratio 25.1 H, Glucose 99, Calcium 9.0 05/12/22 17:06: POC Glucose 110 H Radiology Impression Chest X-Ray 05/12/22 10:00 IMPRESSION: No acute abnormality is seen. Large hiatal hernia. Electronically Signed: Demar Toscano MD at 10:11 EDT , Assessment & Plan Assessment/Plan (1) Dysphagia: PLAN: She will need to undergo evaluation of her upper GI tract to see if she is having problems with the large paraesophageal hernia that is seen on chest x-ray. She likely has an esophageal stricture from her paraesophageal hernia. She will also be evaluated for eosinophilic esophagitis and other esophageal motility disorders. She was explained alternatives, risk, benefits include not withstanding bleeding, infection, sepsis, perforation, need for emergency or . Show an ASA of 3. Charges/Coding Visit Charges Inpatient E&M: 31785 Init Hosp L2
[2022-05-12] MEDS: Atorvastatin Calcium 80 MG Tablet PO (21:57)
[2022-05-12] MEDS: Mirtazapine 15 MG Tablet PO (21:57)
[2022-05-12 22:08] VITALS: BP 126/55; PULSE 93; RESP 16; TEMP 37.2; O2SAT 96
[2022-05-12 22:56] LABS: Bedside Glucose 95 mg/dL (74-106)
[2022-05-13] VITALS (11 sets, daily range): BP systolic 80–139; BP diastolic 42–70; PULSE 64–81; RESP 12–18; TEMP 36.3–37.2; O2SAT 95–99
--- NOTE | 2022-05-13 | ESO_PTH ---
PATIENT: RICARDO NUNEZ LOC: MS3 U#:[id number] AGE/SX: 81/F ROOM: MD318 RE05/12/[address]: Dr. Jovi Pack MD : 1940 BED: 1 DIS: 05/13/2022 SPEC #: [id number] RECD: 05/13/22 12:37 STATUS: REBECCA DEL CASTILLO #: [id number] JEANNE: 05/13/22 00:[address]: Roque Herrera DEPT: SURGICAL PATHOLOGY RECD BY: Shai Crane ENTERED: 05/13/22 12:39 SP TYPE: ESOPH BX OTHR DR: Dr. Mita Morton, DO Dr. Jovi Pack MD Tissues: Esophagus, NOS Procedures: Special Stain Group II Special Stain Group I Surgery Specimen Level IV GMS Stain (control) Alcian Blue/PAS (control) Comments: @ Ordering doctor for SUIV edited from to @ by MARYBETH at 05/13/22 1522 @ Submitting doctor edited from to @ by RGOOD at 05/13/22 1522 HEADER OPERATION: EGD (MAC), biopsy PRE-OP DIAGNOSIS: Dysphagia TISSUE SUBMITTED: Distal esophagus biopsy MICROSCOPIC DIAGNOSIS Distal esophagus, biopsy: Fragments of gastroesophageal mucosa with extensive ulceration, fibrinous exudation, acute and chronic inflammation and changes consistent with gastroesophageal reflux disease. Intestinal metaplasia (goblet cell metaplasia) not identified. See comment. SJ:sonia 04/13/2022 COMMENT Alcian blue/PAS stain with matched control is used in the evaluation of the specimen. Special stain for fungi is negative for organisms; matched control is appropriate. MICROSCOPIC DESCRIPTION Slides are reviewed. GROSS DESCRIPTION Received in fixative is one container labeled with the patient's name and designated distal esophagus. The specimen consists of multiple irregular fragments of light conway soft tissue that in aggregate measure 1.5 x 0.6 x 0.1 cm. The specimen is totally submitted in one cassette. / AM:sonia 05/13/2022 TC:2 CPT: 60442, 22417, 96688
[2022-05-13 06:08] LABS: Absolute Lymphocyte Count 1.03 X10^3/uL (0.83-4.51); Basophil# 0.04 X10^3/uL; Basophil% 0.8 % (0-1); Eosinophils% 4.1 % (0-5); Hematocrit 28.4 % (37-47); Hemoglobin 8.7 g/dL (12.0-15.0); Lymphocyte # 1.03 X10^3/ul (0.83-4.51); Lymphocyte % 21.4 % (19-41); Mean Corp Hgb Conc 30.6 g/dL (32-36); Mean Corpuscular Hgb 27.3 pg (27.0-32.0); Mean Platelet Vol. 11.9 fl (6.2-12.0); Monocyte# 0.57 X10^3/uL; Monocyte% 11.8 % (0-10); NRBC Flagged by Analyzer 0 % (0-5); Neutrophil # 2.97 X10^3/uL (2.7-7.7); Neutrophil % 61.7 % (47-70); Platelet Count 178 K/mm3 (150-450); RBC Distribution Width SD 42.1 fl (35.1-43.9); Red Blood Count 3.19 M/mm3 (4.2-5.4); White Blood Count 4.8 K/mm3 (4.4-11.0)
[2022-05-13 06:24] LABS: International Normalized Ratio 1.2; Partial Thromboplast Time 34.4 Seconds (24.1-36.2); Prothrombin Time (Protime)PT. 14.7 SECONDS (11.7-14.9)
[2022-05-13 06:33] LABS: Anion Gap 5 (5-15); BUN 20 mg/dL (7-18); BUN/Creat Ratio 23.3 RATIO (10-20); Calcium,Total 9.1 mg/dL (8.5-10.1); Chloride 106 mmol/L (98-107); Creatinine, Serum 0.86 mg/dL (0.55-1.02); EST Glomerular Filtration Rate 68 mL/min (>60); Est Glom Filt Rate - Afr Amer 82 mL/min (>60); Glucose 102 mg/dL (74-106); Potassium 3.9 mmol/L (3.5-5.1); Sodium Level 139 mmol/L (136-145)
[2022-05-13 06:55] LABS: Bedside Glucose 102 mg/dL (74-106)
[2022-05-13 09:04] LABS: Hemoglobin A1c 5.7 % (3.8-5.6)
--- NOTE | 2022-05-13 09:10 | PCM.PN.HOSP ---
Subjective Subjective Doing well, no issues overnight Objective Data Objective Data Vital Signs: Vital Signs Temp Pulse Resp BP Pulse Ox O2 Del Method 98.3 F 77 16 139/70 H 99 Room Air 05/13/22 08:07 05/13/22 08:07 05/13/22 08:07 05/13/22 08:07 05/13/22 08:07 05/13/22 08:07 Oxygen Delivery Method Room Air Weight: 97 lb 10.636 oz Body Mass Index (BMI) 19.7 Intake & Output: Intake and Output for Last 24 Hours 05/12/22 05/13/22 05/14/22 03:59 03:59 03:59 Output Total 0 / 0 Balance 0 / 0 Lab / Micro Data Result Diagrams: 05/13/22 05:40 05/13/22 05:40 Labs: Laboratory Results - last 24 hr 05/12/22 10:15: WBC 5.6, RBC 3.40 L, Hgb 9.4 L, Hct 30.6 L, MCV 90.0, MCH 27.6, MCHC 30.7 L, RDW Std Deviation 42.2, RDW Coeff of [place]en 12.9, Plt Count 175, MPV 11.5, Immature Gran % (Auto) 0.200, Neut % (Auto) 70.4 H, Lymph % (Auto) 17.0 L, [place] % (Auto) 8.8, Eos % (Auto) 2.9, Baso % (Auto) 0.7, Absolute Neuts (auto) 4.0, Absolute Lymphs (auto) 0.95, Nucleated RBC % 0 05/12/22 10:15: Sodium 139, Potassium 3.9, Chloride 107, Carbon Dioxide 29.0, Anion Gap 3 L, BUN 22 H, Creatinine 0.88, Estim Creat Clear Calc 40.09, Est GFR (MDRD) Af Amer 80, Est GFR (MDRD) Non-Af 66, BUN/Creatinine Ratio 25.1 H, Glucose 99, Calcium 9.0 05/12/22 17:06: POC Glucose 110 H 05/12/22 21:54: POC Glucose 95 05/13/22 05:40: WBC 4.8, RBC 3.19 L, Hgb 8.7 L, Hct 28.4 L, MCV 89.0, MCH 27.3, MCHC 30.6 L, RDW Std Deviation 42.1, RDW Coeff of Galen 13.0, Plt Count 178, MPV 11.9, Immature Gran % (Auto) 0.200, Neut % (Auto) 61.7, Lymph % (Auto) 21.4, [place] % (Auto) 11.8 H, Eos % (Auto) 4.1, Baso % (Auto) 0.8, Absolute Neuts (auto) 3.0, Absolute Lymphs (auto) 1.03, Nucleated RBC % 0 05/13/22 05:40: Sodium 139, Potassium 3.9, Chloride 106, Carbon Dioxide 28.0, Anion Gap 5, BUN 20 H, Creatinine 0.86, Estim Creat Clear Calc 37.10, Est GFR (MDRD) Af Amer 82, Est GFR (MDRD) Non-Af 68, BUN/Creatinine Ratio 23.3 H, Glucose 102, Calcium 9.1 05/13/22 05:40: PT 14.7, INR 1.2, APTT 34.4 05/13/22 05:40: Hemoglobin A1c 5.7 H 05/13/22 06:38: POC Glucose 102 Radiography Diagnostic Testing: Radiology Impression Chest X-Ray 05/12/22 10:00 IMPRESSION: No acute abnormality is seen. Large hiatal hernia. Electronically Signed: Demar Toscano MD at 10:11 EDT Reading Location ID and State: [address] [place] [address] , Service support , Physical Exam Narrative General: Alert, confused, Cooperative, No apparent distress HEENT: Atraumatic, PERRLA, EOMI, Normocephalic, hard of hearing hearing aid is in Oral: Moist Mucosa Neck: Supple, No JVD Lungs: Diminished, Normal air movement, No rhonchi, No wheeze, No rales Cardiovascular: Regular rate, Regular Rhythm, Normal S1, Normal S2, No murmurs Abdomen: Soft, Non Tender, Non-Distended, No Hepato-splenomegaly Extremities: No edema, Capillary Refill Less than 3 Seconds Skin: No rashes, No breakdown Musculoskeletal: No Tenderness to Palpation of Joints or Extremities Neurological: Cranial nerves II-XII grossly intact, Motor Exam 5/5 strength throughout, Sensory exam intact to light touch and pain Psych/Mental Status: Normal Affect, Appropriate Assessment & Plan Assessment/Plan (1) Dysphagia: PLAN: Plan 1. Dysphagia ? She has had 2 previous dilatations ? Imaging demonstrates a large hiatal hernia ? She is able to eat and drink and has not lost any weight ? Plan for EGD today, appreciate GIs assistance 2. CAD status post/HTN/HLD/A-fib ? She is not on any anticoagulation ? Continue with her home blood pressure and cholesterol medications ? Continue with her Plavix 3. DM2 ? Hold her metformin ? We will place her on a sliding scale insulin with Accu-Cheks ACHS ? We will make adjustments as necessary 4. GERD ? Stable ? Continue with PPI 5. Anxiety/depression/dementia ? Stable ? Continue with her home medications DVT: SCDs Charges/Coding Visit Charges Inpatient E&M: 35393 Subs Hosp L2
[2022-05-13 09:44] LABS: Ferritin 17 ng/mL (8-252); Iron 39 ug/dL (50-170); Iron Binding Capacity,Total 406 ug/dL (250-450); PERCENT IRON SATURATION 9.6 % (15.0-55.0)
[2022-05-13] MEDS: Lactated Ringers 1,000 ML 15 ML IV (10:16)
--- NOTE | 2022-05-13 11:04 | OP.CCLET_ITS ---
05/13/2022 Mita Morton Re : Upper GI endoscopy procedure for Prema Villalpando Dear Praveen This procedure was performed on Friday, May 13, 2022. My impressions and recommendations are as follows: Impressions : - Esophageal plaques were found, consistent with candidiasis. Biopsied. - Severe Schatzki ring. Dilated. - Medium-sized hiatal hernia. - Bile gastritis. - No gross lesions in the first portion of the duodenum. Recommendations : - [facility] to [facility]. - Resume previous diet. - Nystatin suspension 200,000 units PO QID for 7 weeks. - Continue present medications. My findings are described in the full procedure note, which is enclosed. If I can be of further assistance, please feel free to contact me at . Sincerely, Roque Herrera, 05/13/2022 11:03:25 AM This report has been signed electronically.
--- NOTE | 2022-05-13 11:04 | OP.EGD_ITS ---
Patient Name: Prema Villalpando Procedure Date: 05/13/2022 10:42 AM Date of : 1940 Age: 81 Procedure: Upper GI endoscopy Indications: Dysphagia Providers: Roque Herrera DO Medicines: Monitored Anesthesia Care Patient Profile: This is a 81 year old female. Refer to note in patient chart for documentation of history and physical. Patient has symptoms of dysphagia with solids. Complications: No immediate complications. Procedure: Pre-Anesthesia Assessment: - Prior to the procedure, a History and Physical was performed, and patient medications and allergies were reviewed. The risks and benefits of the procedure and the sedation options and risks were discussed with the patient. All questions were answered and informed consent was obtained. Patient identification and proposed procedure were verified by the physician. Mental Status Examination: normal. Airway Examination: normal oropharyngeal airway and neck mobility. Prophylactic Antibiotics: The patient does not require prophylactic antibiotics. Prior Anticoagulants: The patient has taken no previous anticoagulant or antiplatelet agents. ASA Grade Assessment: III - A patient with severe systemic disease. After reviewing the risks and benefits, the patient was deemed in satisfactory condition to undergo the procedure. The anesthesia plan was to use monitored anesthesia care (MAC). Immediately prior to administration of medications, the patient was re-assessed for adequacy to receive sedatives. The heart rate, respiratory rate, oxygen saturations, blood pressure, adequacy of pulmonary ventilation, and response to care were monitored throughout the procedure. The physical status of the patient was re-assessed after the procedure. After obtaining informed consent, the endoscope was passed under direct vision. Throughout the procedure, the patient's blood pressure, pulse, and oxygen saturations were monitored continuously. The gastroscope was introduced through the mouth, and advanced to the second part of duodenum. The upper GI endoscopy was accomplished without difficulty. The patient tolerated the procedure well. Scope In: 10:51:27 AM Scope Out: 10:56:47 AM Total Procedure Duration Time 0 hours 5 minutes 20 seconds Findings: , white plaques were found in the upper third of the esophagus. Biopsies were taken with a cold forceps for histology. Verification of patient identification for the specimen was done. Estimated blood loss was minimal. A severe Schatzki ring was found in the lower third of the esophagus. A guidewire was placed and the scope was withdrawn. Dilation was performed with a Savary dilator with no resistance at 45 Fr. The dilation site was examined and showed moderate improvement in luminal narrowing. Estimated blood loss was minimal. A medium-sized hiatal hernia was present. Diffuse severe inflammation characterized by congestion (edema), erosions, erythema, friability, granularity, linear erosions and serpentine ulcerations was found in the cardia, in the gastric fundus, in the gastric body, on the anterior wall of the stomach, on the greater curvature of the stomach, on the lesser curvature of the stomach and in the gastric antrum. No gross lesions were noted in the first portion of the duodenum. Impression: - Esophageal plaques were found, consistent with candidiasis. Biopsied. - Severe Schatzki ring. Dilated. - Medium-sized hiatal hernia. - Bile gastritis. - No gross lesions in the first portion of the duodenum. Recommendation: - [facility]. - Resume previous diet. - Nystatin suspension 200,000 units PO QID for 7 weeks. - Continue present medications. Procedure Code(s): --- Professional --- 56663, Esophagogastroduodenoscopy, flexible, transoral; with insertion of guide wire followed by passage of dilator(s) through esophagus over guide wire 20981, 59, Esophagogastroduodenoscopy, flexible, transoral; with biopsy, single or multiple CPT copyright 2017 [employer]. All rights reserved. The codes documented in this report are preliminary and upon electrical assemblies supervisor review may be revised to meet current compliance requirements. Roque Herrera DO 05/13/2022 11:03:25 AM This report has been signed electronically. Number of Addenda: 0 Note Initiated On: 05/13/2022 10:42 AM
[2022-05-13] MEDS: Furosemide 40 MG Tablet PO (11:47)
[2022-05-13] MEDS: Pantoprazole Sodium 40 MG Tablet PO (11:47)
[2022-05-13] MEDS: Memantine Hydrochloride 10 MG Tablet PO (11:47)
[2022-05-13] MEDS: Metoprolol Tartrate 25 MG Tablet 12.5 MG PO (11:47)
[2022-05-13] MEDS: Clopidogrel Bisulfate 75 MG Tablet PO (11:50)
[2022-05-13] MEDS: Sertraline 50 MG Tablet PO (11:50)
[2022-05-13 12:25] LABS: Bedside Glucose 89 mg/dL (74-106)
--- NOTE | 2022-05-13 13:49 | TREXTCAR_ITS ---
Diet Diet Order/Speech Therapy: 05/13/22 00:01 NPO [Diet: Nothing Per Oral] Is pt able to select menu?: Yes Routine Orders/Code Status Routine Lab Work: CBC and BMP Wound(s) RT ABD: Wound Type: Abrasion Therapies Physical Therapy: Eval and Treat Occupational Therapy: Eval and Treat Problem/Diagnosis (1) Dysphagia: Status: Acute Code(s): R13.10 - Dysphagia, unspecified Plan 1. Dysphagia ? She has had 2 previous dilatations ? Imaging demonstrates a large hiatal hernia ? She is able to eat and drink and has not lost any weight ? Plan for EGD today, appreciate GIs assistance 2. CAD status post/HTN/HLD/A-fib ? She is not on any anticoagulation ? Continue with her home blood pressure and cholesterol medications ? Continue with her Plavix 3. DM2 ? Hold her metformin ? We will place her on a sliding scale insulin with Accu-Cheks ACHS ? We will make adjustments as necessary 4. GERD ? Stable ? Continue with PPI 5. Anxiety/depression/dementia ? Stable ? Continue with her home medications DVT: SCDs Allergies/Procedures Done in Hospital Allergies ticagrelor [From Brilinta] Allergy (Verified 05/12/22 12:19) Shortness of breath Procedures: EGD Type of Care/Length of Stay Estimated LOS: Convalescent Care Less Than 30 days Type of Care Needed: Skilled Rehab Potential: Good Prognosis: Good Additional Orders/Day of Discharge Day of Discharge: 05/13/22 Dietary and Speech Recommendations Dietitian Recommendations/Changes: Continue Cardiac diet with texture/consistency per [employer]RESHING/MD. Continue 120mL EPHP TID with medpass to provide supplemental energy. Discharge Plan Admission Admit Date/Time: 05/12/22 11:13 Attending Provider: Jvoi Pack Primary Care Provider: Mita Morton Discharge Orders/Prescriptions Prescriptions: New nystatin 100,000 unit/mL suspension 200,000 unit PO Q6H 7 Days Qty: 56 0RF Rx Instructions: administer 1/2 of dose in each side of the mouth Continued Atorvastatin Calcium 80 MG tablet 80 mg PO DAILY torsemide 20 MG tablet 20 mg PO DAILY potassium chloride 10 MEQ tablet extended release 10 meq PO BID clopidogrel 75 MG tablet 75 mg PO DAILY aspirin 81 MG tablet,chewable 81 mg PO DAILY@0800 sertraline 50 MG tablet 50 mg PO DAILY Omeprazole [Prilosec] 40 MG capsule 40 mg PO DAILY clotrimazole 10 mg estefani 10 mg PO TID PRN PRN (Reason: Mouth Irritation) Label Comments: DISSOLVE 1 ESTEFANI BY MOUTH 3 TIMES A DAY WHILE ON IMMUNOSUPPRESSIVE MEDICINE metformin 500 mg tablet 500 mg PO BID Label Comments: TAKE 1 TABLET BY MOUTH TWICE A DAY WITH FOOD FOR 90 DAYS tizanidine 4 mg tablet 4 mg PO TID PRN PRN (Reason: Muscle Spasm) Label Comments: TAKE 1 TABLET BY MOUTH THREE TIMES A DAY NEEDED *50 TABLETS TO LAST 30 DAYS* oxybutynin chloride 5 mg tablet 5 mg PO BID Label Comments: TAKE ONE (1) TABLET BY MOUTH TWICE DAILY memantine 10 mg tablet 10 mg PO DAILY mirtazapine 15 mg tablet 15 mg PO QHS Label Comments: TAKE 1 TABLET BY MOUTH ONCE DAILY AT BEDTIME metoprolol tartrate 25 mg tablet 12.5 mg PO DAILY Label Comments: TAKE 1/2 TABLET BY MOUTH DAILY Referrals / Follow Up: Mita Morton DO [Primary Care Provider] - Disposition Disposition (needs filled in before D/C Order can be placed): Shelter Facility
--- NOTE | 2022-05-13 14:06 | DS.PCM_ITS ---
Providers Date of Admission: 05/12/22 Primary Care Physician: Dr. Mita Morton, Consultations 05/12/22 12:48 Consult: Gastroenterology Routine Consulting Provider: [facility] Reason for Consult: Dysphagia EMERGENT Consult: No MD Notified: Yes Date Notified: 05/12/22 Time Notified: 11:18 Method of Notification: ED Physician Initiated Reason For Visit: HIATAL HERNIA Diagnosis Discharge Diagnosis (1) Dysphagia: Status: Acute Code(s): R13.10 - Dysphagia, unspecified Medications at Discharge Home Medications Atorvastatin Calcium 80 mg PO DAILY 10/18/18 Omeprazole [Prilosec] 40 mg PO DAILY 10/18/18 aspirin 81 mg chewable tablet 81 mg PO DAILY@0800 10/18/18 clopidogrel 75 mg tablet 75 mg PO DAILY 10/18/18 potassium chloride 10 mEq tablet,extended release 10 meq PO BID 10/18/18 sertraline 50 mg tablet 50 mg PO DAILY 10/18/18 torsemide 20 mg tablet 20 mg PO DAILY 10/18/18 clotrimazole 10 mg sophie 10 mg PO TID PRN PRN Mouth Irritation 05/12/22 memantine 10 mg tablet 10 mg PO DAILY 05/12/22 metformin 500 mg tablet 500 mg PO BID 05/12/22 metoprolol tartrate 25 mg tablet 12.5 mg PO DAILY 05/12/22 mirtazapine 15 mg tablet 15 mg PO QHS 05/12/22 oxybutynin chloride 5 mg tablet 5 mg PO BID 05/12/22 tizanidine 4 mg tablet 4 mg PO TID PRN PRN Muscle Spasm 05/12/22 nystatin 100,000 unit/mL oral suspension 200,000 unit (2 mL) PO Q6H 7 days #56 mL 05/13/22 Hospital Course Operations None Procedures EGD Summary of Care Provided Minutes Spent on Discharge: 35 Hospital Course: Per HPI: RICARDO NUNEZ, is a 81 F who presents to the hospital with difficulty swallowing.? This has been an ongoing issue she had a previous esophageal dilat ation years ago and then had another 1 at a hospital in [place] in January 2022.? She has been having increasing difficulty swallowing and this morning had difficulty swallowing her pills.? She was able to eat and drink in the ER and she has not been losing any weight.? No nausea or vomiting.? She was brought to the emergency room because of a concern for not being able to swallow her pills it does not appear that any outpatient management has been sought so far.? Imaging demonstrates a large hiatal hernia.? Unfortunately secondary to her dementia she is a poor historian and there is no family at bedside so information was obtained from chart review and discussing the case with the ED physician. Hospital Course: 1. Dysphagia due to Schatzki's ring and esophageal candidiasis ? She has had 2 previous dilatations ? Imaging demonstrates a large hiatal hernia ? She is able to eat and drink and has not lost any weight ? EGD today demonstrated a Schatzki's ring which was dilated as well as esophageal candidiasis likely related to her history of diabetes as well as her age and her use of a PPI. In discussion with gastroenterology they felt that she would be okay for discharge today will recommend nystatin 200,000 units p.o. 4 times daily for 7 days and would recommend a prolonged transition to an H2 yessenia instead of the PPI if possible. We will plan on a one-time 500,000 unit dose here today prior to discharge. 2. CAD status post/HTN/HLD/A-fib ? She is not on any anticoagulation ? Continue with her home blood pressure and cholesterol medications ? Continue with her aspirin and Plavix 3. DM2 ? Hold her metformin ? We will place her on a sliding scale insulin with Accu-Cheks ACHS ? We will make adjustments as necessary ? She can resume her home medications on discharge 4. GERD ? Stable ? Continue with PPI, but would recommend transitioning to an H2 yessenia given her esophageal candidiasis 5. Anxiety/depression/dementia ? Stable ? Continue with her home medications Weight / BMI Weight Weight: 97 lb 10.636 oz Body Mass Index (BMI) 19.7 ABG / Lab / Microbiology Data Result Diagrams: 05/13/22 05:40 05/13/22 05:40 Laboratory: Laboratory Results - last 24 hr 05/12/22 17:06: POC Glucose 110 H 05/12/22 21:54: POC Glucose 95 05/13/22 05:40: WBC 4.8, RBC 3.19 L, Hgb 8.7 L, Hct 28.4 L, MCV 89.0, MCH 27.3, MCHC 30.6 L, RDW Std Deviation 42.1, RDW Coeff of Galen 13.0, Plt Count 178, MPV 1 1.9, Immature Gran % (Auto) 0.200, Neut % (Auto) 61.7, Lymph % (Auto) 21.4, [place] % (Auto) 11.8 H, Eos % (Auto) 4.1, Baso % (Auto) 0.8, Absolute Neuts (auto) 3.0, Absolute Lymphs (auto) 1.03, Nucleated RBC % 0 05/13/22 05:40: Sodium 139, Potassium 3.9, Chloride 106, Carbon Dioxide 28.0, Anion Gap 5, BUN 20 H, Creatinine 0.86, Estim Creat Clear Calc 37.10, Est GFR (MDRD) Af Amer 82, Est GFR (MDRD) Non-Af 68, BUN/Creatinine Ratio 23.3 H, Glucose 102, Calcium 9.1 05/13/22 05:40: PT 14.7, INR 1.2, APTT 34.4 05/13/22 05:40: Hemoglobin A1c 5.7 H 05/13/22 05:40: Iron 39 L, TIBC 406, Iron Saturation 9.6 L, Ferritin 17 05/13/22 06:38: POC Glucose 102 05/13/22 11:45: POC Glucose 89 Meaningful Use Info Meaningful Use Diagnoses (Choose all that apply): None applicable Discharge Plan Admission Admit Date/Time: 05/12/22 11:13 Attending Provider: Jovi Pack Primary Care Provider: Mita Morton Discharge Orders/Prescriptions Prescriptions: New nystatin 100,000 unit/mL suspension 200,000 unit PO Q6H 7 Days Qty: 56 0RF Rx Instructions: administer 1/2 of dose in each side of the mouth Continued Atorvastatin Calcium 80 MG tablet 80 mg PO DAILY torsemide 20 MG tablet 20 mg PO DAILY potassium chloride 10 MEQ tablet extended release 10 meq PO BID clopidogrel 75 MG tablet 75 mg PO DAILY aspirin 81 MG tablet,chewable 81 mg PO DAILY@0800 sertraline 50 MG tablet 50 mg PO DAILY Omeprazole [Prilosec] 40 MG capsule 40 mg PO DAILY clotrimazole 10 mg sophie 10 mg PO TID PRN PRN (Reason: Mouth Irritation) Label Comments: DISSOLVE 1 SOPHIE BY MOUTH 3 TIMES A DAY WHILE ON IMMUNOSUPPRESSIVE MEDICINE metformin 500 mg tablet 500 mg PO BID Label Comments: TAKE 1 TABLET BY MOUTH TWICE A DAY WITH FOOD FOR 90 DAYS tizanidine 4 mg tablet 4 mg PO TID PRN PRN (Reason: Muscle Spasm) Label Comments: TAKE 1 TABLET BY MOUTH THREE TIMES A DAY NEEDED *50 TABLETS TO LAST 30 DAYS* oxybutynin chloride 5 mg tablet 5 mg PO BID Label Comments: TAKE ONE (1) TABLET BY MOUTH TWICE DAILY memantine 10 mg tablet 10 mg PO DAILY mirtazapine 15 mg tablet 15 mg PO QHS Label Comments: TAKE 1 TABLET BY MOUTH ONCE DAILY AT BEDTIME metoprolol tartrate 25 mg tablet 12.5 mg PO DAILY Label Comments: TAKE 1/2 TABLET BY MOUTH DAILY Referrals / Follow Up: Mita Morton DO [Primary Care Provider] - Disposition Disposition (needs filled in before D/C Order can be placed): Intermediate Facility Charges/Coding Visit Charges Inpatient E&M: 24460 Disch Hosp >30min
--- NOTE | 2022-05-13 14:07 | CASEMGMT ---
[facility] pt from assisted living. SW spoke to pt daughter and POA, Margarita. Margarita stated pt is not from an assisted living facility and currently lives in a private home. TRICE updated MD Pack as MD was under the impression pt would be going to ECF upon discharge. Betsy Pimentel, MARA
--- NOTE | 2022-05-13 14:30 | CASEMGMT ---
ELEAZAR HODGE called pt dtr Margaritasuman Tubbs to explain TAYLOR form, patient dtr voiced understanding. Pt dtr provided verbal consent for signature on form. Verified by witness. Pt provided with a copy of signed TAYLOR form. Patient dtr had no further questions or concerns at this time. Pt dtr states pt is from home and she lives across the road from her. She states that pt goes to [place] during the day and the dtr manages pt meds, meals and looks after her. Denies any further homegoing needs as they are looking into [place].
[2022-05-13] MEDS: NYSTATIN 500,000 UNIT/5 ML UDC 500000 UNIT PO (15:13)
--- NOTE | 2022-05-13 15:45 | DCINST_ITS ---
Discharge Instructions Diet Discharge Diet: No restrictions and Soft diet Activity Discharge Activity: Return to Normal Activity Dressing / Incision Call your doctor if you observe: Fever of 101 or Higher, Shortness of breath, D izziness, Fainting spells, Swelling in the ankles, Chest pain and Increased palpitations (irregular heartbeat) Follow Up Care Test Results: Test results from this visit will be discussed in further detail at your follow- up appointment, if applicable. Discharge Plan Admission Admit Date/Time: 05/12/22 11:13 Attending Provider: Jovi Pack Primary Care Provider: Mita Morton Discharge Orders/Prescriptions Prescriptions: New nystatin 100,000 unit/mL suspension 200,000 unit PO Q6H 7 Days Qty: 56 0RF Rx Instructions: administer 1/2 of dose in each side of the mouth Continued Atorvastatin Calcium 80 MG tablet 80 mg PO DAILY torsemide 20 MG tablet 20 mg PO DAILY potassium chloride 10 MEQ tablet extended release 10 meq PO BID clopidogrel 75 MG tablet 75 mg PO DAILY aspirin 81 MG tablet,chewable 81 mg PO DAILY@0800 sertraline 50 MG tablet 50 mg PO DAILY Omeprazole [Prilosec] 40 MG capsule 40 mg PO DAILY clotrimazole 10 mg sophie 10 mg PO TID PRN PRN (Reason: Mouth Irritation) Label Comments: DISSOLVE 1 SOPHIE BY MOUTH 3 TIMES A DAY WHILE ON IMMUNOSUPPRESSIVE MEDICINE metformin 500 mg tablet 500 mg PO BID Label Comments: TAKE 1 TABLET BY MOUTH TWICE A DAY WITH FOOD FOR 90 DAYS tizanidine 4 mg tablet 4 mg PO TID PRN PRN (Reason: Muscle Spasm) Label Comments: TAKE 1 TABLET BY MOUTH THREE TIMES A DAY NEEDED *50 TABLETS TO LAST 30 DAYS* oxybutynin chloride 5 mg tablet 5 mg PO BID Label Comments: TAKE ONE (1) TABLET BY MOUTH TWICE DAILY memantine 10 mg tablet 10 mg PO DAILY mirtazapine 15 mg tablet 15 mg PO QHS Label Comments: TAKE 1 TABLET BY MOUTH ONCE DAILY AT BEDTIME metoprolol tartrate 25 mg tablet 12.5 mg PO DAILY Label Comments: TAKE 1/2 TABLET BY MOUTH DAILY Referrals / Follow Up: Mita Morton DO [Primary Care Provider] - Within 1 Week FriendRoque DO [Med Staff - Active Staff] - Within 3 Months Disposition Disposition (needs filled in before D/C Order can be placed): Home, Self Care
[2022-05-13 16:16] LABS: Bedside Glucose 131 mg/dL (74-106)
[2022-05-13] MEDS: Ensure Plus High Protein 120 ML LIQUID PO (17:05)
== END 2022-05-13 19:18 | disposition home or self-care (01) ==
LOC: ED 11:08 → MS3 11:32
PROVIDERS: Anesthesiology; Internal Medicine Gastroenterology; Admitting Provider Family Medicine; Emergency Provider Emergency Medicine; PCP Family Medicine; Visit Provider Family Medicine
PROC: 0DJ08ZZ Inspection of Upper Intestinal Tract, Via Natural or Artificial Opening Endoscopic (ICD-10-PCS; CPT 43235; principal; 2022-05-13 10:25)
DX: K22.2 Esophageal obstruction (principal); B37.81 Candidal esophagitis; F03.90 Unspecified dementia, unspecified severity, without behavioral disturbance, psychotic disturbance, mood disturbance, and anxiety; I48.19 Other persistent atrial fibrillation; E11.9 Type 2 diabetes mellitus without complications; K44.9 Diaphragmatic hernia without obstruction or gangrene; I10 Essential (primary) hypertension; F41.9 Anxiety disorder, unspecified; K29.70 Gastritis, unspecified, without bleeding; I25.10 Atherosclerotic heart disease of native coronary artery without angina pectoris; K21.9 Gastro-esophageal reflux disease without esophagitis; R13.10 Dysphagia, unspecified; E78.5 Hyperlipidemia, unspecified; Z79.02 Long term (current) use of antithrombotics/antiplatelets; Z79.82 Long term (current) use of aspirin; Z79.899 Other long term (current) drug therapy; Z79.84 Long term (current) use of oral hypoglycemic drugs; F32.A Depression, unspecified
CPT/HCPCS: 43239; 43248; 36415; 71045; 80048; 82728; 82962; 83036; 83540; 83550; 85025; 85610; 85730; 88305; 88312; 88313; 93005; 99221; 99284; J7120; A4216; G0378; J2405

== ENCOUNTER 2022-06-01 19:07 | Emergency (ER) | payer MEDICARE, OTHER, SELFPAY ==
[2022-06-01 19:08] VITALS: BP 115/47; PULSE 77; RESP 18; TEMP 36.7; O2SAT 98
[2022-06-01 20:22] LABS: Absolute Lymphocyte Count 1.57 X10^3/uL (0.83-4.51); Absolute Neutrophil Count 4.9 X10^3/uL (2.0-7.7); Basophil# 0.05 X10^3/uL; Basophil% 0.7 % (0-1); Eosinophil# 0.08 X10^3/uL; Eosinophils% 1.1 % (0-5); Hematocrit 31.7 % (37-47); Lymphocyte # 1.57 X10^3/ul (0.83-4.51); Lymphocyte % 22.3 % (19-41); Mean Corp Hgb Conc 31.5 g/dL (32-36); Mean Corpuscular Volume 85.4 fL (81-99); Mean Platelet Vol. 10.5 fl (6.2-12.0); Monocyte# 0.39 X10^3/uL; Monocyte% 5.5 % (0-10); NRBC Flagged by Analyzer 0 % (0-5); Neutrophil # 4.93 X10^3/uL (2.7-7.7); Neutrophil % 70.1 % (47-70); Platelet Count 248 K/mm3 (150-450); RBC Distribution Width CV 13.8 % (11.6-14.6); RBC Distribution Width SD 42.8 fl (35.1-43.9); Red Blood Count 3.71 M/mm3 (4.2-5.4)
[2022-06-01 20:32] VITALS: BMI 19.4
[2022-06-01 20:34] LABS: Anion Gap 1 (5-15); BUN 30 mg/dL (7-18); BUN/Creat Ratio 33.1 RATIO (10-20); Calcium,Total 8.6 mg/dL (8.5-10.1); Chloride 105 mmol/L (98-107); Creatinine, Serum 0.91 mg/dL (0.55-1.02); EST Glomerular Filtration Rate 64 mL/min (>60); Est Glom Filt Rate - Afr Amer 77 mL/min (>60); Glucose 124 mg/dL (74-106); Potassium 3.5 mmol/L (3.5-5.1); Sodium Level 137 mmol/L (136-145)
--- NOTE | 2022-06-01 21:20 | CT_ITS ---
INDICATION: weakness EXAMINATION: CT BRAIN - CT Head or Brain W/O Contrast Injection TECHNIQUE: Multiple axial images were obtained of the head without intravenous contrast. A radiation dose optimization technique was used for this scan. IV Contrast dosage and agent: None. COMPARISON: January 19, [address] FINDINGS: BRAIN PARENCHYMA: No intra- or extra-axial hemorrhage. No intracranial mass or mass effect. Barrientos/white matter differentiation is maintained and there is no blurring of the basal ganglia. There is no hyperdense vessel. Right greater than left areas of decreased density in the periventricular white matter most, representing chronic small vessel ischemic changes is unchanged. Posterior fossa structures are unremarkable. CSF SPACES: Moderate diffuse parenchymal volume loss without focal atrophy, likely age-related. No hydrocephalus. Basal cisterns are patent. CALVARIUM, SKULL BASE, PARANASAL SINUSES AND MASTOID AIR CELLS: Intact calvarium and skull base. No fracture or osseous lesion. Paranasal sinuses are clear. Mastoid air cells and middle ears are clear. ORBITS: Both globes, extraocular muscles, optic nerves and retrobulbar fat appear unremarkable. ASPECTS Score for Acute Strokes: 10 CT/Brain/Head without Contrast IMPRESSION: No acute intracranial pathology. Diffuse parenchymal volume loss, likely age-related and chronic small vessel ischemic changes unchanged compared to prior exam. Electronically Signed: Vishal Medina DO at 22:02 EDT ,
--- NOTE | 2022-06-01 21:21 | EKG12_ITS ---
Test Reason : GEN ILL Blood Pressure : / mmHG Vent. Rate : 080 BPM Atrial Rate : 000 BPM P-R Int : 000 ms QRS Dur : 082 ms QT Int : 372 ms P-R-T Axes : 000 -25 042 degrees QTc Int : 429 ms Normal sinus rhythm Premature ventricular complexes Premature atrial complexes Nonspecific ST and T wave abnormality Abnormal ECG Confirmed by VINCENT CHRISTIANSEN, CARIN ([id number]), book or script editor MATEO MARINELLI ([id number]) on 06/04/2022 9:15:35 AM Referred By: Confirmed By:CARIN KAUR MD
--- NOTE | 2022-06-01 21:40 | RAD_ITS ---
INDICATION: CHF History EXAMINATION/TECHNIQUE: X-RAY - XR Chest 1 View COMPARISON: Chest x-ray May 12, 2022. FINDINGS: LINES/DEVICES: None. LUNGS: Symmetric normal lung volumes. No airspace opacity or abnormal interstitial pattern. No nodule or mass. No pleural effusion or pneumothorax. Calcified granuloma left lower lobe. MEDIASTINUM AND CARDIOVASCULAR STRUCTURES: Normal size and contour of the cardiomediastinal silhouette. No evidence of pulmonary vascular congestion. Retrocardiac opacity likely representing hiatal hernia as seen on prior comparison exam. Aortic arch intimal calcifications noted. BONES AND SOFT TISSUES: No fracture or focal osseous lesion. Asymmetric degenerative changes right glenohumeral joint. Degenerative changes spine. RAD/Chest 1 View (Portable) IMPRESSION: 1. No radiographic evidence of acute cardiopulmonary disease. 2. Hiatal hernia. Electronically Signed: Vishal Medina DO at 22:18 EDT ,
[2022-06-01 21:58] LABS: AST(SGOT) 75 U/L (15-37); Alanine Aminotransfer ALT/SGPT 69 U/L (13-56); Albumin, Serum 2.3 g/dL (3.2-5.0); Alkaline Phosphatase 207 U/L (45-117); Bilirubin, Direct 0.25 mg/dL (0.00-0.30); Globulin 5.5 g/dL (2.2-4.2); Protein, Total 7.8 g/dL (6.4-8.2)
[2022-06-01 22:41] LABS: Bacteria 0 SEEN /hpf (None Seen); Mucous, Urine 0 SEEN /hpf (<or=2+); Red Blood Cells-Urine 0 SEEN /hpf (0-5)
[2022-06-01 22:44] LABS: Color, Urine Yellow (Yellow); Glucose, Dipstick Normal (Normal); Ketone-Dipstick Negative (Negative); Leukocyte Esterase-Dipstick 25 /ul (Negative); Nitrite-Dipstick Negative (Negative); Occult Blood-Urine Negative /ul (Negative); Protein-Dipstick 30 mg/dl (Negative); Specific Gravity, Urine 1.015 (1.002-1.030); Urine Bilirubin Dipstick Negative (Negative); Urine Clarity Sl. Cloudy (Clear); Urine Urobilinogen 1 mg/dl (Normal)
[2022-06-01 22:50] LABS: Squamous Epithelial Cells - UA 0-5 SEEN /hpf (5-10); White Blood Cells 0-5 SEEN /hpf (0-5)
[2022-06-01 23:07] VITALS: BP 126/59; PULSE 69; RESP 14; O2SAT 96
--- NOTE | 2022-06-01 23:15 | EX.ED.DYSGE1 ---
HPI History of Present Illness Chief Complaint: Fatigue [facility] Medical History (Updated 06/01/22 @ 23:[address] Xavier Younger MD) Anemia Atherosclerotic heart disease of [place] coronary artery without angina pectoris Dementia Diabetes Dyslipidemia Gallstone of bile duct with gallbladder inflammation h/o throat surgery H/O transfusion of whole blood Hx of blood clots Hyperlipidemia Hypertension Iron deficiency anemia, unspecified Paroxysmal atrial fibrillation Persistent atrial fibrillation Wears hearing aid in both ears Home Medications Atorvastatin Calcium 80 mg PO DAILY 10/18/18 [History Last Taken Unknown] Omeprazole [Prilosec] 40 mg PO DAILY 10/18/18 [History Last Taken Unknown] aspirin 81 mg chewable tablet 81 mg PO DAILY@0800 10/18/18 [History Last Taken Unknown] clopidogrel 75 mg tablet 75 mg PO DAILY 10/18/18 [History Last Taken Unknown] potassium chloride 10 mEq tablet,extended release 10 meq PO BID 10/18/18 [History Last Taken Unknown] sertraline 50 mg tablet 50 mg PO DAILY 10/18/18 [History Last Taken Unknown] torsemide 20 mg tablet 20 mg PO DAILY 10/18/18 [History Last Taken Unknown] clotrimazole 10 mg sophie 10 mg PO TID PRN PRN Mouth Irritation 05/12/22 [History Last Taken Unknown] memantine 10 mg tablet 10 mg PO DAILY 05/12/22 [History Last Taken Unknown] metformin 500 mg tablet 500 mg PO BID 05/12/22 [History Last Taken Unknown] metoprolol tartrate 25 mg tablet 12.5 mg PO DAILY 05/12/22 [History Last Taken Unknown] mirtazapine 15 mg tablet 15 mg PO QHS 05/12/22 [History Last Taken Unknown] oxybutynin chloride 5 mg tablet 5 mg PO BID 05/12/22 [History Last Taken Unknown] tizanidine 4 mg tablet 4 mg PO TID PRN PRN Muscle Spasm 05/12/22 [History Last Taken Unknown] nystatin 100,000 unit/mL oral suspension 200,000 unit (2 mL) PO Q6H 7 days #56 mL 05/13/22 [Rx Last Taken Unknown] Allergy/AdvReac Type Severity Reaction Status Date / Time ticagrelor [From Brilinta] Allergy Shortness Verified 06/01/22 19:10 of breath Family History Other no pertinent family medical hsitory Surgical History H/O colonoscopy H/O eye surgery H/O heart artery stent Social History Smoking Status: Never smoker EXAM Physical Exam Const Vital Signs: 06/01/22 19:08 06/01/22 20:35 Temperature 98.0 F Temperature Source Temporal Pulse Rate 77 Respiratory Rate 18 Respiratory Effort Normal Respiratory Pattern Normal Blood Pressure 115/47 L Blood Pressure Mean 69 Pulse Ox 98 Oxygen Delivery Method Room Air MDM MDM MDM Narrative Medical decision making narrative: Patient CBC shows mild anemia but better than her baseline. Electrolytes show just a slight increase in BUN/creatinine. There may be a small component of dehydration but she is eating and drinking now. Glucose was 124. Liver function test did show a slight bump of AST ALT and alk phos. But she is eating and drinking and has no pain whatsoever. Urine was cath urine that showed 0-5 white cells no sign of infection. COVID and influenza are negative. My independent interpretation the patient's CT of the head showed atrophy but no acute process similar to final read. Chest x-ray showed no acute process. There was sign of a hiatal hernia seen. I talked with the daughter. 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 The daughter is concerned because she is sleeping more than normal. But she is still eating and drinking. She is mentally at her baseline. She is also not walking as much. Daughter states she kind of shuffles around the house. We are getting her up and walking here to see how she does. Patient's EKG shows atrial fibrillation but she has rate control and she has a history of this. It sounds like she is not on anticoagulation due to risks of falls and injury that exceed the benefit. Her EKG shows what appears to be atrial fibrillation here. But there are often times she is clearly in a normal sinus rhythm with very discernible P waves in a regular rate on the monitor. I do not think this is the source of her weakness. The patient up and walked and she actually walked very smoothly steadily and easily. No ataxia. No problems at all. I had a long talk with the daughter. We stated that there is a slight bump in liver function test but no symptoms related to this. She is eating and drinking and has no abdominal pain. There are signs of just very mild dehydration with elevation of BUN and creatinine. We will give a little bit of fluids here. Just a small amount as she is also a very small person. Patient is eating and drinking. She is at her baseline. There is not a reason to keep her in the hospital at this time. Certainly if she develops further symptoms, fevers, neurologic symptoms trouble breathing or any other concerns they should bring her back. Lab Data Attestation: I reviewed the patient's lab results. Labs: Laboratory Results - last 24 hr 06/01/22 06/01/22 06/01/22 20:16 20:16 20:16 WBC 7.0 RBC 3.71 L Hgb 10.0 L Hct 31.7 L MCV 85.4 MCH 27.0 MCHC 31.5 L RDW Std Deviation 42.8 RDW Coeff of [place] 13.8 Plt Count 248 MPV 10.5 Immature Gran % (Auto) 0.300 Neut % (Auto) 70.1 H Lymph % (Auto) 22.3 Edgar % (Auto) 5.5 Eos % (Auto) 1.1 Baso % (Auto) 0.7 Absolute Neuts (auto) 4.9 Absolute Lymphs (auto) 1.57 Nucleated RBC % 0 Sodium 137 Potassium 3.5 Chloride 105 Carbon Dioxide 31.0 Anion Gap 1 L BUN 30 H Creatinine 0.91 Est GFR (MDRD) Af Amer 77 Est GFR (MDRD) Non-Af 64 BUN/Creatinine Ratio 33.1 H Glucose 124 H Calcium 8.6 Total Bilirubin 0.30 Direct Bilirubin 0.25 AST 75 H ALT 69 H Alkaline Phosphatase 207 H Total Protein 7.8 Albumin 2.3 L Globulin 5.5 H Urine Color Urine Clarity Urine pH Ur Specific [place] Urine Protein Urine Glucose (UA) Urine Ketones Urine Occult Blood Urine Nitrite Urine Bilirubin Urine Urobilinogen Ur Leukocyte Esterase Urine RBC Urine WBC Ur Squamous Epith Cells Urine Bacteria Urine Mucus 06/01/22 21:40 WBC RBC Hgb Hct MCV MCH MCHC RDW Std Deviation RDW Coeff of [place] Plt Count MPV Immature Gran % (Auto) Neut % (Auto) Lymph % (Auto) Edgar % (Auto) Eos % (Auto) Baso % (Auto) Absolute Neuts (auto) Absolute Lymphs (auto) Nucleated RBC % Sodium Potassium Chloride Carbon Dioxide Anion Gap BUN Creatinine Est GFR (MDRD) Af Amer Est GFR (MDRD) Non-Af BUN/Creatinine Ratio Glucose Calcium Total Bilirubin Direct Bilirubin AST ALT Alkaline Phosphatase Total Protein Albumin Globulin Urine Color Yellow Urine Clarity Sl. Cloudy Urine pH 5.0 Ur Specific [place] 1.015 Urine Protein 30 H Urine Glucose (UA) Normal Urine Ketones Negative Urine Occult Blood Negative Urine Nitrite Negative Urine Bilirubin Negative Urine Urobilinogen 1 H Ur Leukocyte Esterase 25 H Urine RBC 0 SEEN Urine WBC 0-5 SEEN Ur Squamous Epith Cells 0-5 SEEN Urine Bacteria 0 SEEN Urine Mucus 0 SEEN Radiography Diagnostic Testing: Clinical Impression(s) from Imaging Studies Brain CT 06/01/22 21:20 IMPRESSION: No acute intracranial pathology. Diffuse parenchymal volume loss, likely age-related and chronic small vessel ischemic changes unchanged compared to prior exam. Electronically Signed: Vishal Medina DO at 22:02 EDT , Chest X-Ray 06/01/22 21:40 IMPRESSION: 1. No radiographic evidence of acute cardiopulmonary disease. 2. Hiatal hernia. Electronically Signed: Vishal Medina DO at 22:18 EDT , EKG Initial EKG: Comments: EKG done for generalized weakness read by me shows what appears to be atrial fibrillation with occasional PVCs. No acute ST elevation or depression. QRS duration and QTc are normal. Discharge Plan Triage Chief Complaint: Fatigue ED Provider: Xavier Younger Dx/Rx/DC Orders Clinical Impression: Tiredness, Generalized weakness, History of dementia, Mild dehydration Instructions: ED Dehydration (Adult), ED Weakness (Uncertain Cause) Prescriptions: No Action Atorvastatin Calcium 80 MG tablet 80 mg PO DAILY torsemide 20 MG tablet 20 mg PO DAILY potassium chloride 10 MEQ tablet extended release 10 meq PO BID clopidogrel 75 MG tablet 75 mg PO DAILY aspirin 81 MG tablet,chewable 81 mg PO DAILY@0800 sertraline 50 MG tablet 50 mg PO DAILY Omeprazole [Prilosec] 40 MG capsule 40 mg PO DAILY clotrimazole 10 mg sophie 10 mg PO TID PRN PRN (Reason: Mouth Irritation) Label Comments: DISSOLVE 1 SOPHIE BY MOUTH 3 TIMES A DAY WHILE ON IMMUNOSUPPRESSIVE MEDICINE metformin 500 mg tablet 500 mg PO BID Label Comments: TAKE 1 TABLET BY MOUTH TWICE A DAY WITH FOOD FOR 90 DAYS tizanidine 4 mg tablet 4 mg PO TID PRN PRN (Reason: Muscle Spasm) Label Comments: TAKE 1 TABLET BY MOUTH THREE TIMES A DAY NEEDED *50 TABLETS TO LAST 30 DAYS* oxybutynin chloride 5 mg tablet 5 mg PO BID Label Comments: TAKE ONE (1) TABLET BY MOUTH TWICE DAILY memantine 10 mg tablet 10 mg PO DAILY mirtazapine 15 mg tablet 15 mg PO QHS Label Comments: TAKE 1 TABLET BY MOUTH ONCE DAILY AT BEDTIME metoprolol tartrate 25 mg tablet 12.5 mg PO DAILY Label Comments: TAKE 1/2 TABLET BY MOUTH DAILY nystatin 100,000 unit/mL suspension 200,000 unit PO Q6H 7 Days Qty: 56 0RF Rx Instructions: administer 1/2 of dose in each side of the mouth Primary Care Provider: Mita Morton Referrals: Mita Morton, [Primary Care Provider] - 3-5 Days Disposition Disposition: Home, Self Care
[2022-06-01 23:41] VITALS: BP 124/59; PULSE 14; RESP 68
== END 2022-06-02 00:37 | disposition home or self-care (01) ==
PROVIDERS: Emergency Provider Emergency Medicine; PCP Family Medicine; Visit Provider Emergency Medicine
DX: R53.1 Weakness (principal); I48.91 Unspecified atrial fibrillation; E11.9 Type 2 diabetes mellitus without complications; E78.5 Hyperlipidemia, unspecified; I10 Essential (primary) hypertension; I25.10 Atherosclerotic heart disease of native coronary artery without angina pectoris
CPT/HCPCS: 70450; 71045; 80048; 80076; 81001; 85025; 87086; 87428; 93005; 96360; 99283; J7050; A4216

== ENCOUNTER 2022-10-21 13:00 | Outpatient (RCR) | payer MEDICARE, OTHER, SELFPAY ==
--- NOTE | 2022-09-17 12:06 | HP.PTEVAL_ITS ---
Patient's Visit Information Visit Information Visit Information: RICARDO NUNEZ is a 81 year old F referred to Physical Therapy by Dr. Mita Morton DO with a diagnosis of SCIATIC NERVE PAIN. Date of Evaluation: 09/17/22 Physical Therapist: Ami Thayer, PT, Cert MDT Visit Plan Frequency: 2-3x /Week Duration: 4-6 Weeks Plan: PT 2x/week for 4-6 weeks for HEP instruction for LE, core and balance ex patient can eventually do at home with pictures with the help of a caregiver. Please instruct caregiver in how to help patient with HEP. Consider aquatic therapy if painful ex on land. Subjective Subjective: Daughter dropped her off and did not attend the session. Pt is a poor historian and daughter not present. Does not feel weak and denies pain. When daughter returned this PT asked for more history. Daughter reports patient does not drive. States patient was in hospital x 4 days due to swelling in legs and feet and not being able to walk. States she went to [facility] x 20 days after hospital stay and was discharged July 14 2022. Started exercising at [employer] in [place] 2 days a wk but stopped due to patient c/o back pain. Got a shot in back last week which seemed to help as evidenced by patient no longer taking Tylonol. Patient is still using heating pad. Patient originally denied back pain but reported some low back pain once daughter present. Objective Objective: Oriented to name but not time, place or date. Pt has a hard time answering questions that require thought to them such as whether she can drive to therapy, if she does home exercises, but does remember simple things like where the steps are. She does not use cane or walker. Walks I, transfers I, bed trasnfers I, steps reciprocal with one to two handrails. LE AROM WFL and strength at 3+. Motor control in following directions to move LE take extra time but can do it well. Minor tightness in HS and gastroc present. Sensation LE WNL to gross light touch. She is able to follow simple commands and responds better to visual than verbal cues. She is also able to count ex reps with cueing. Sitting/Standing Posture: Poor. Increased Kyphosis Lumbar mvmt loss: flex - min ext - arely R SG - arely L SG - arely Patient denies pain and does not exhibit pain behavior with Lumbar ROM testing all planes. Core strength: Poor Palpation: No c/o tenderness or signs of pain with light palpation of Lumbar and hip regions. Daughter was not present during exam but when daughter returned this PT requested her presence at future john[facility] for caregiver instruction. Daughter agreeable. Balance/Special Test Scores Oswestry Low Back Score: 19 TUG Test Time Seconds: 15.54 30 Second Chair Rise Test Seconds: 10 Goals Goal 1:: PATIENT WILL BE INDEP WITH A HEP WITH THE HELP OF A CAREGIVER FOR CONTINUED IMPROVEMENT ONCE FORMAL PHYSICAL THERAPY CONCLUDES. Goal Time Frame: 4-6 Weeks Goal 2:: PATIENT WILL COMPLETE 12 STANDS IN 30 SECS TO DEMONSTRATE IMPROVED FUNCTIONAL STRENGTH Goal Time Frame: 4-6 Weeks Goal 3:: PATIENT WILL COMPLETE TUG IN < 10 SECS TO DEMONSTRATE IMPROVED GAIT STABILITY Goal Time Frame: 4-6 Weeks Anticipated Interventions Patient/Client Instruction: Educate patient on: Condition, Plan of Care and Risk Factors For the Purpose of:: To facilitate caregiver knowledge and To improve self management Therapeutic Exercise to Include: Strength training, Body mechanics, Postural training, Flexibilty training, Gait and locomotor training, Neuromotor development, In an aquatic setting and Dynamic Lumbar Stabilization For the Purpose of:: To decrease pain, To increase ROM, To improve muscle performance and motor function, To increase tolerance to activity/condition /position, To improve ability of physical actions for home/community/work/leisure and To improve gait and locomotor functions Cryotherapy (ice pack, ice massage): Yes Thermo therapy (hot pack): Yes For the Purpose of:: To decrease pain and To improve nutrient delivery to tissue Text: Thank you for the opportunity to evaluate your patient. For Medicare and Medicare HMO plans, please review the plan of care and approve it. It will need to be FAXED BACK to us at [phone] for Medicare purposes. For Medicare only, by signing this I certify the plan of care. Please let me know if there are questions or concerns regarding this plan of care. Physician Si gnature: Date:
--- NOTE | 2022-10-21 13:28 | HP.PTDCSUM_ITS ---
Discharge Summary D/C summary: It has been my pleasure to treat RICARDO NUNEZ referred by Dr. Mita Morton DO, with the diagnosis of SCIATIC NERVE PAIN for a total of 9 visit(s). Discharge Date: Please see the following information for a summary of their discharge status. Subjective Subjective: PATIENT PRESENTS TO PT TODAY WITH HER DAUGHTER. HER DAUGHTER REPORTS HER MOM HAS ONLY COMPLAINED ABOUT A LITTLE LOW BACK PAIN ONCE RECENTLY. SHE STATES SHE HASN'T BEEN USING THE CANE OR THE WALKER AND THEY HAVE GONE TO THE FAIR AND WALKED AROUND A LOT TWICE. Palliative Care STARTED WEDNESDAY. HER DIAGNOSIS FOR PALLIATIVE CARE IS DIMENTIA PER DAUGHTER. PATIENTS DAUGHTER STATES THEY HAVE BEEN DOING HER HEP AND THEY ARE READY TO GO BACK TO ANY TIME FITNESS. Overall Improvement % Improvement: 98 Objective Objective/Function: PATIENT WAS SEEN TODAY FOR RE-ASSESSMENT OF PROGRESS TOWARD THE SET PT GOALS AND THE NEED FOR FURTHER PHYSICAL THERAPY VS READINESS FOR DIS CHARGE. PATIENT HAS MADE GOOD PROGRESS WITH PT AND IS APPROPRIATE FOR DISCHARGE. PATIENTS DAUGHTER IS AGREEABLE. PATIENTS DAUGHTER GAVE SUBJECTIVE INFORMATION FOR PATIENT TODAY AND AND HELPED PATIENT WITH OSWESTRY. PATIENT IS ABLE TO FOLLOW SIMPLE COMMANDS WITH CUEING. Goals Goal 1:: PATIENT WILL BE INDEP WITH A HEP WITH THE HELP OF A CAREGIVER FOR CONTINUED IMPROVEMENT ONCE FORMAL PHYSICAL THERAPY CONCLUDES. Goal Progress: Goal Met Goal 2:: PATIENT WILL COMPLETE 12 STANDS IN 30 SECS TO DEMONSTRATE IMPROVED FUNCTIONAL STRENGTH Goal Progress: Goal Met Goal 3:: PATIENT WILL COMPLETE TUG IN < 10 SECS TO DEMONSTRATE IMPROVED GAIT STABILITY Goal Progress: Progressing Plan Plan: D/C D/C Information d/c sentence: If there are questions or concerns regarding this patient's physical therapy, please feel free to call me at [phone]. Thank you for the referral of this patient. Sincerely, Ami Thayer, PT, Cert MDT Balance/Gait/Functional tests Balance/Special Test Scores Oswestry Low Back Score: 5 TUG Test Time Seconds: 11.53 Tug Test: <20 sec.=mostly independent 30 Second Chair Rise Test Seconds: 12 Improvement % Improvement: 98
== END 2022-10-21 14:17 | disposition home or self-care (01) ==
LOC: PT 13:00
PROVIDERS: PCP Family Medicine; Referring Provider Family Medicine; Visit Provider Family Medicine
DX: M54.30 Sciatica, unspecified side (principal)
CPT/HCPCS: 97110; 97162; 97164

== ENCOUNTER 2023-01-04 11:05 | Day surgery (SDC) | payer MEDICARE, OTHER, SELFPAY ==
--- NOTE | 2023-01-04 | ESO_PTH ---
PATIENT: RICARDO NUNEZ LOC: EN U#:[id number] AGE/SX: 82/F ROOM: RE01/04/[address]: Dr. Roque Herrera DO : 1940 BED: DIS: 01/04/2023 SPEC #: [id number] RECD: 01/04/23 08:22 STATUS: REBECCA REChristie #: [id number] JEANNE: 01/04/23 00:[address]: Roque Herrera DEPT: SURGICAL PATHOLOGY RECD BY: Shai Crane ENTERED: 01/05/23 08:22 SP TYPE: MIKEY MORIN DR: Dr. Mita Morton DO Tissues: Esophagus, NOS Procedures: Special Stain Group I Surgery Specimen Level IV GMS Stain (control) HEADER OPERATION: EGD with biopsy PRE-OP DIAGNOSIS: Large paraoesophageal hernia TISSUE SUBMITTED: Random esophageal biopsy MICROSCOPIC DIAGNOSIS Esophagus, random biopsy: Squamous and junctional mucosa with chronic and focal acute inflammation. Focal fibrinopurulent material. Focal changes of reflux. Bacterial colonies. See comment. AM:sonia 01/06/2023 COMMENT GMS stain with matched control was used in the evaluation of this case. MICROSCOPIC DESCRIPTION Slides are reviewed. GROSS DESCRIPTION Received in fixative is one container labeled with the patient's name and designated random esophagus biopsy. The specimen consists of multiple irregular fragments of light conway soft tissue that in aggregate measure 3.0 x 0.6 x 0.1 cm. The specimen is totally submitted in one cassette. / AM:sonia 01/05/2023 TC:2 CPT: 88178, 06598
--- NOTE | 2023-01-04 11:20 | HP.PCM_ITS ---
History and Physical Date of Admission: 01/04/23 81 F who presents with trouble swallowing. She was brought to the emergency department by her daughter for complaint of difficulty swallowing.? Patient apparently was having a hard time swallowing her meal yesterday.? She had a hard time swallowing her pills today.? Patient has history of EGD with esophageal dilatation around of 2021.? She per daughter had been doing relatively well until recently.? She had had 1 prior dilatation years ago.? Patient currently at assisted living facility.? Patient has history of dementia and is somewhat of a poor historian.? Apparently she is able to swallow liquids.? Her last dilatation was in [place]. ?Imaging demonstrates a large hiatal hernia. [facility] Medical History (Updated 05/12/22 @ 18:[address] Nevarez Friend, DO) Anemia Atherosclerotic heart disease of [place] coronary artery without angina pectoris Dementia Diabetes Dyslipidemia Gallstone of bile duct with gallbladder inflammation h/o throat surgery H/O transfusion of whole blood Hx of blood clots Hyperlipidemia Hypertension Iron deficiency anemia, unspecified Paroxysmal atrial fibrillation Persistent atrial fibrillation Wears hearing aid in both ears Home Medications Atorvastatin Calcium 80 mg PO DAILY 10/18/18 [History Last Taken Unknown] Omeprazole [Prilosec] 40 mg PO DAILY 10/18/18 [History Last Taken Unknown] aspirin 81 mg chewable tablet 81 mg PO DAILY@0800 10/18/18 [History Last Taken Unknown] clopidogrel 75 mg tablet 75 mg PO DAILY 10/18/18 [History Last Taken Unknown] potassium chloride 10 mEq tablet,extended release 10 meq PO BID 10/18/18 [History Last Taken Unknown] sertraline 50 mg tablet 50 mg PO DAILY 10/18/18 [History Last Taken Unknown] torsemide 20 mg tablet 20 mg PO DAILY 10/18/18 [History Last Taken Unknown] clotrimazole 10 mg sophie 10 mg PO TID PRN PRN Mouth Irritation 05/12/22 [History Last Taken Unknown] memantine 10 mg tablet 10 mg PO DAILY 05/12/22 [History Last Taken Unknown] metformin 500 mg tablet 500 mg PO BID 05/12/22 [History Last Taken Unknown] metoprolol tartrate 25 mg tablet 12.5 mg PO DAILY 05/12/22 [History Last Taken Unknown] mirtazapine 15 mg tablet 15 mg PO QHS 05/12/22 [History Last Taken Unknown] oxybutynin chloride 5 mg tablet 5 mg PO BID 05/12/22 [History Last Taken Unknown] tizanidine 4 mg tablet 4 mg PO TID PRN PRN Muscle Spasm 05/12/22 [History Last Taken Unknown] Allergy/AdvReac Type Severity Reaction Status Date / Time ticagrelor [From Brilinta] Allergy Shortness Verified 05/12/22 12:19 of breath Family History Other no pertinent family medical hsitory Surgical History H/O colonoscopy H/O eye surgery H/O heart artery stent Social History Smoking Status: Never smoker ROS Constitutional Constitutional: Denies chills, fatigue, fever(s) or malaise Eyes Eyes: Denies blurry vision ENT HEENT: Denies headache(s) or nasal discharge Cardiovascular Cardiovascular: Denies chest pain, dyspnea on exertion or syncope Respiratory/Chest Respiratory/Chest: Denies cough, shortness of breath at rest or shortness of breath with exertion Gastrointestinal Gastrointestinal: Reports dysphagia; Denies constipation, diarrhea, nausea or vomiting Genitourinary Genitourinary: Denies dysuria Neurologic Neurologic: Denies focal weakness, numbness or tremor(s) Psychiatric Psychiatric: Denies anxiety or depression Physical Exam Narrative General: Alert, confused, Cooperative, No apparent distress HEENT: Atraumatic, PERRLA, EOMI, Normocephalic, hard of hearing hearing aid is in Oral: Moist Mucosa Neck: Supple, No JVD Lungs: Diminished, Normal air movement, No rhonchi, No wheeze, No rales Cardiovascular: Regular rate, Regular Rhythm, Normal S1, Normal S2, No murmurs Abdomen: Soft, Non Tender, Non-Distended, No Hepato-splenomegaly Extremities: No edema, Capillary Refill Less than 3 Seconds Skin: No rashes, No breakdown Musculoskeletal: No Tenderness to Palpation of Joints or Extremities Neurological: Cranial nerves II-XII grossly intact, Motor Exam 5/5 strength throughout, Sensory exam intact to light touch and pain Psych/Mental Status: Normal Affect, Appropriate Lab / Micro Data Result Diagrams: 05/12/22 10:15 05/12/22 10:15 Labs: Laboratory Results - last 24 hr 05/12/22 10:15: WBC 5.6, RBC 3.40 L, Hgb 9.4 L, Hct 30.6 L, MCV 90.0, MCH 27.6, MCHC 30.7 L, RDW Std Deviation 42.2, RDW Coeff of [place] 12.9, Plt Count 175, MPV 11.5, Immature Gran % (Auto) 0.200, Neut % (Auto) 70.4 H, Lymph % (Auto) 17.0 L, [place] % (Auto) 8.8, Eos % (Auto) 2.9, Baso % (Auto) 0.7, Absolute Neuts (auto) 4.0, Absolute Lymphs (auto) 0.95, Nucleated RBC % 0 05/12/22 10:15: Sodium 139, Potassium 3.9, Chloride 107, Carbon Dioxide 29.0, Anion Gap 3 L, BUN 22 H, Creatinine 0.88, Estim Creat Clear Calc 40.09, Est GFR (MDRD) Af Amer 80, Est GFR (MDRD) Non-Af 66, BUN/Creatinine Ratio 25.1 H, Glucose 99, Calcium 9.0 05/12/22 17:06: POC Glucose 110 H Radiology Impression Chest X-Ray 05/12/22 10:00 IMPRESSION: No acute abnormality is seen. Large hiatal hernia. Electronically Signed: Demar Toscano MD at 10:11 EDT Reading Location ID and State: [address] [place] [address] , Service support , Assessment & Plan Assessment/Plan (1) Dysphagia: PLAN: She will need to undergo evaluation of her upper GI tract to see if she is having problems with the large paraesophageal hernia that is seen on chest x- ray. She likely has an esophageal stricture from her paraesophageal hernia. She will also be evaluated for eosinophilic esophagitis and other esophageal motility disorders. She was explained alternatives, risk, benefits include not withstanding bleeding, infection, sepsis, perforation, need for emergency or . Show an ASA of 3. I have examined the patient and the H&P has been reviewed. There are no clinical changes since date of exam.
[2023-01-04 11:46] VITALS: BP 139/61; PULSE 67; RESP 16; TEMP 36.4; O2SAT 100; BMI 19.5
[2023-01-04] MEDS: Lactated Ringers 1,000 ML 15 ML IV (11:53)
[2023-01-04 12:35] VITALS: BP 111/76; BP 139/61; PULSE 89; RESP 16; TEMP 36.7; O2SAT 100
[2023-01-04 12:40] VITALS: BP 104/53; BP 139/61; PULSE 85; RESP 16
--- NOTE | 2023-01-04 12:40 | OP.EGD_ITS ---
Patient Name: Prema Villalpando Procedure Date: 01/04/2023 12:04 PM Date of : 1940 Age: 82 Procedure: Upper GI endoscopy Indications: Dysphagia Providers: Roque Herrera DO Medicines: Monitored Anesthesia Care Patient Profile: This is an 82 year old female. Refer to note in patient chart for documentation of history and physical. Patient has symptoms of chronic dysphagia. Complications: No immediate complications. Procedure: Pre-Anesthesia Assessment: - Prior to the procedure, a History and Physical was performed, and patient medications and allergies were reviewed. The patient is competent. The risks and benefits of the procedure and the sedation options and risks were discussed with the patient. All questions were answered and informed consent was obtained. Patient identification and proposed procedure were verified by the physician in the pre-procedure area. Mental Status Examination: alert and oriented. Airway Examination: normal oropharyngeal airway and neck mobility. Respiratory Examination: clear to auscultation. CV Examination: normal. Prophylactic Antibiotics: The patient does not require prophylactic antibiotics. Prior Anticoagulants: The patient has taken no anticoagulant or antiplatelet agents. ASA Grade Assessment: III - A patient with severe systemic disease. After reviewing the risks and benefits, the patient was deemed in satisfactory condition to undergo the procedure. The anesthesia plan was to use monitored anesthesia care (MAC). Immediately prior to administration of medications, the patient was re-assessed for adequacy to receive sedatives. The heart rate, respiratory rate, oxygen saturations, blood pressure, adequacy of pulmonary ventilation, and response to care were monitored throughout the procedure. The physical status of the patient was re-assessed after the procedure. After obtaining informed consent, the endoscope was passed under direct vision. Throughout the procedure, the patient's blood pressure, pulse, and oxygen saturations were monitored continuously. The Endoscope was introduced through the mouth, and advanced to the second part of duodenum. The upper GI endoscopy was accomplished without difficulty. The patient tolerated the procedure well. Scope In: 12:22:13 PM Scope Out: 12:28:25 PM Total Procedure Duration Time 0 hours 6 minutes 12 seconds Findings: Mucosal changes including ringed esophagus, feline appearance and small-caliber esophagus were found in the upper third of the esophagus and in the middle third of the esophagus. Biopsies were obtained from the proximal and distal esophagus with cold forceps for histology of suspected eosinophilic esophagitis. Verification of patient identification for the specimen was done. Estimated blood loss was minimal. A moderate Schatzki ring was found in the lower third of the esophagus. A guidewire was placed and the scope was withdrawn. Dilation was performed with a Savary dilator with no resistance at 45 Fr. The dilation site was examined and showed moderate mucosal disruption. Estimated blood loss was minimal. A large hiatal hernia was present. Diffuse moderate inflammation was found in the entire examined stomach. No gross lesions were noted in the duodenal bulb. Impression: - Esophageal mucosal changes consistent with eosinophilic esophagitis. - Moderate Schatzki ring. Dilated. - Large hiatal hernia. - Bile gastritis. - No gross lesions in the duodenal bulb. - Biopsies were taken with a cold forceps for evaluation of eosinophilic esophagitis. Recommendation: - Discharge patient to home. - Resume previous diet. - Continue present medications. - Await pathology results. Procedure Code(s): --- Professional --- 54146, Esophagogastroduodenoscopy, flexible, transoral; with insertion of guide wire followed by passage of dilator(s) through esophagus over guide wire 06642, 59,51, Esophagogastroduodenoscopy, flexible, transoral; with biopsy, single or multiple CPT copyright 2021 [employer]. All rights reserved. The codes documented in this report are preliminary and upon purification operator helper review may be revised to meet current compliance requirements. Roque Herrera DO 01/04/2023 12:40:31 PM This report has been signed electronically. Number of Addenda: 0 Note Initiated On: 01/04/2023 12:04 PM
--- NOTE | 2023-01-04 12:40 | OP.CCLET_ITS ---
01/04/2023 Mita Morton Re : Upper GI endoscopy procedure for Prema Villalpando Dear Praveen This procedure was performed on Wednesday, January 04, 2023. My impressions and recommendations are as follows: Impressions : - Esophageal mucosal changes consistent with eosinophilic esophagitis. - Moderate Schatzki ring. Dilated. - Large hiatal hernia. - Bile gastritis. - No gross lesions in the duodenal bulb. - Biopsies were taken with a cold forceps for evaluation of eosinophilic esophagitis. Recommendations : - Discharge patient to home. - Resume previous diet. - Continue present medications. - Await pathology results. My findings are described in the full procedure note, which is enclosed. If I can be of further assistance, please feel free to contact me at . Sincerely, Roque Herrera, 01/04/2023 12:40:31 PM This report has been signed electronically.
[2023-01-04 12:44] VITALS: BP 124/61; BP 139/61; PULSE 83; RESP 16; O2SAT 98
[2023-01-04 12:48] VITALS: BP 115/55; BP 139/61; PULSE 81; RESP 16; TEMP 36.9; O2SAT 98
[2023-01-04 12:57] VITALS: BP 139/61
== END 2023-01-04 13:36 | disposition home or self-care (01) ==
LOC: EN 11:08 → AC 11:09
PROVIDERS: PCP Family Medicine; Referring Provider Family Medicine; Visit Provider Internal Medicine Gastroenterology
PROC: 0DJ08ZZ Inspection of Upper Intestinal Tract, Via Natural or Artificial Opening Endoscopic (ICD-10-PCS; CPT 43235; principal; 2023-01-04 12:10)
DX: K21.00 Gastro-esophageal reflux disease with esophagitis, without bleeding (principal); F03.90 Unspecified dementia, unspecified severity, without behavioral disturbance, psychotic disturbance, mood disturbance, and anxiety; E11.9 Type 2 diabetes mellitus without complications; E78.5 Hyperlipidemia, unspecified; K29.70 Gastritis, unspecified, without bleeding; I10 Essential (primary) hypertension; K44.9 Diaphragmatic hernia without obstruction or gangrene; I25.10 Atherosclerotic heart disease of native coronary artery without angina pectoris; K22.2 Esophageal obstruction; Z79.899 Other long term (current) drug therapy; Z79.84 Long term (current) use of oral hypoglycemic drugs; Z87.19 Personal history of other diseases of the digestive system
CPT/HCPCS: 43248; 43239; 88305; 88312; J7120; J2405

== ENCOUNTER 2023-04-04 10:14 | Emergency (ER) | payer MEDICARE, OTHER, SELFPAY ==
[2023-04-04 10:15] VITALS: BP 140/55; PULSE 62; RESP 18; TEMP 36.3; O2SAT 100; BMI 20.3
--- NOTE | 2023-04-04 10:33 | EDS_ITS ---
HPI HPI - Fall History of Present Illness Chief Complaint: Fall Narrative Narrative: History and physical is limited secondary to dementia. Majority of history comes from daughter. This is an 82-year-old female, who fell yesterday. Her daughter states that they were walking and running a little bit and patient tried to keep up and had a mechanical fall. She sustained injury to her left cheek, and left forearm and had an abrasion on her left finger. There was no loss of consciousness afterwards. Today, they took her to the urgent care for evaluation of the skin tears, but they were sent here secondary to the patient hitting her cheek with a facial contusion. Daughter believes that the patient's tetanus immunization is up-to-date from 2019. She was mainly concerned about the large skin tear on her left forearm. She states that if the patient had pain, she would complain of it but has not been having any forearm or finger pain, and has been at her baseline mentally. Patient does not take blood thinners. [facility] Medical History Anemia Atherosclerotic heart disease of [place] coronary artery without angina pectoris Back pain Bladder disease Cardiology follow-up encounter Dementia Diabetes Difficulty swallowing Dyslipidemia Gallstone of bile duct with gallbladder inflammation Gastric reflux h/o throat surgery History of CHF (congestive heart failure) History of heart attack History of hiatal hernia Hyperlipidemia Hypertension Iron deficiency anemia, unspecified Leg cramps Low iron Non-smoker Paroxysmal atrial fibrillation Persistent atrial fibrillation Wears dentures Wears glasses Wears hearing aid in both ears Wears partial dentures Home Medications potassium chloride 10 mEq tablet,extended release 10 meq PO BID 10/18/18 [History Last Taken Unknown] sertraline 50 mg tablet 50 mg PO DAILY 10/18/18 [History Last Taken Unknown] torsemide 20 mg tablet 20 mg PO DAILY 10/18/18 [History Last Taken Unknown] memantine 10 mg tablet 10 mg PO DAILY 05/12/22 [History Last Taken Unknown] metformin 500 mg tablet 500 mg PO BID 05/12/22 [History Last Taken Unknown] metoprolol tartrate 25 mg tablet 12.5 mg PO DAILY 05/12/22 [History Last Taken Unknown] oxybutynin chloride 5 mg tablet 5 mg PO DAILY 05/12/22 [History Last Taken Unknown] tizanidine 4 mg tablet 4 mg PO TID PRN PRN Muscle Spasm 05/12/22 [History Last Taken Unknown] atorvastatin 80 mg tablet 80 mg PO DAILY 04/04/23 [History Last Taken Unknown] omeprazole 40 mg capsule,delayed release 40 mg PO DAILY 04/04/23 [History Last Taken Unknown] rivastigmine tartrate 3 mg capsule 3 mg PO BID 04/04/23 [History Last Taken Unknown] Allergy/AdvReac Type Severity Reaction Status Date / Time ticagrelor [From Brilinta] Allergy Shortness Verified 04/04/23 10:15 of breath Family History Other no pertinent family medical hsitory Surgical History H/O colonoscopy H/O eye surgery H/O heart artery stent History of esophagogastroduodenoscopy (EGD) Hx of partial thyroidectomy Social History Smoking Status: Never smoker ROS ROS ED ROS Narrative Constitutional: No fever, no chills. HEENT: No sore throat. No neck pain. No loss of vision. No rhinorrhea. Cardiovascular: No chest pain. No palpitations. No pedal edema. Respiratory: No cough, no shortness of breath. Abdominal: No abdominal pain. No nausea. No vomiting. Genitourinary: No dysuria. No hematuria. Musculoskeletal: No myalgias. No arthralgias. Neurologic: No headaches. No dizziness. No lightheadedness. Skin: No rash. No change in color. Positive skin tear to left cheek and left forearm Psychiatric: No depression. No anxiety. EXAM Physical Exam Narrative Exam Narrative: Afebrile. Vital signs noted. GCS 15. ABCs intact. HEENT: Normocephalic. Atraumatic. PERRL, EOMI. Neck soft and supple. No point tenderness or step off. Cardiovascular: Regular rate and rhythm. No murmurs, rubs, or gallops appreciated. Respiratory: No tachypnea. Lungs clear to auscultation bilaterally. Gastrointestinal: Abdomen soft, nontender, with normoactive bowel sounds. No rebound or guarding. Neurological: Awake. Alert. Consistent with dementia. Nonfocal, no nlateralizing. Skin: No rash. Normal color. No pallor. +1 cm skin tear to left cheek, no active bleeding. Moderately sized skin tear, irregular, to left forearm, no active bleeding. Positive Band-Aid left finger, clean dry and intact. Musculoskeletal: No pedal edema. Full range of motion extremities. No bony tenderness of cheek, left, and no bony tenderness of left forearm. Full range of motion left elbow, and left wrist, no overt swelling. Const Vital Signs: 04/04/23 10:15 04/04/23 11:14 04/04/23 11:16 Temperature 97.4 F L Temperature Source Temporal Pulse Rate 62 68 Respiratory Rate 18 16 Respiratory Effort Normal Non-Labored Respiratory Depth Normal Respiratory Pattern Normal Blood Pressure 140/55 H 134/56 H Blood Pressure Mean 83 82 Pulse Ox 100 98 Oxygen Delivery Method Room Air Room Air Room Air 04/04/23 11:16 Temperature 97.1 F L Temperature Source Pulse Rate 68 Respiratory Rate 16 Respiratory Effort Respiratory Depth Respiratory Pattern Blood Pressure 134/56 H Blood Pressure Mean 82 Pulse Ox 98 Oxygen Delivery Method MDM MDM MDM Narrative Medical decision making narrative: In the differential diagnosis is closed head injury. I have low suspicion for intracranial hemorrhage as this happened yesterday, and the patient is at her baseline mentally, not complaining of a headache. I do not feel a CT is indicated and in discussion with her daughter, she is in agreement. Additionally, I do not feel x-rays are indicated as there is no bony tenderness or deformity or swelling. Her tetanus immunization is up-to-date. Her skin tears will be cleansed and redressed. I feel that she can be discharged to follow-up with her primary care provider. I do not feel she requires admission. Disposition is discharged home in stable condition. Discharge Plan Triage Chief Complaint: Fall ED Provider: Memo Naqvi Dx/Rx/DC Orders Clinical Impression: Skin tear of left upper extremity, Facial contusion, Fall Instructions: ED Mechanical Fall, ED Skin Tear (Skin Avulsion), ED Wound Check (No Infection) Prescriptions: No Action torsemide 20 MG tablet 20 mg PO DAILY potassium chloride 10 MEQ tablet extended release 10 meq PO BID sertraline 50 MG tablet 50 mg PO DAILY metformin 500 mg tablet 500 mg PO BID Patient Comments: TAKE 1 TABLET BY MOUTH TWICE A DAY WITH FOOD FOR 90 DAYS tizanidine 4 mg tablet 4 mg PO TID PRN PRN (Reason: Muscle Spasm) Patient Comments: TAKE 1 TABLET BY MOUTH THREE TIMES A DAY NEEDED *50 TABLETS TO LAST 30 DAYS* oxybutynin chloride 5 mg tablet 5 mg PO DAILY Patient Comments: TAKE ONE (1) TABLET BY MOUTH TWICE DAILY memantine 10 mg tablet 10 mg PO DAILY metoprolol tartrate 25 mg tablet 12.5 mg PO DAILY Patient Comments: TAKE 1/2 TABLET BY MOUTH DAILY omeprazole 40 mg capsule,delayed release(DR/EC) 40 mg PO DAILY rivastigmine tartrate 3 mg capsule 3 mg PO BID atorvastatin 80 mg tablet 80 mg PO DAILY Primary Care Provider: Mita Morton Referrals: Mita Morton, DO [Primary Care Provider] - 3-5 Days if not improving Disposition Disposition: Home, Self Care Discharge Date/Time: 04/04/23 11:19
[2023-04-04 11:16] VITALS: BP 134/56; PULSE 68; RESP 16; TEMP 36.2; O2SAT 98
== END 2023-04-04 11:19 | disposition home or self-care (01) ==
PROVIDERS: Emergency Provider Emergency Medicine; PCP Family Medicine; Visit Provider Emergency Medicine
DX: S51.812A Laceration without foreign body of left forearm, initial encounter (principal); F03.90 Unspecified dementia, unspecified severity, without behavioral disturbance, psychotic disturbance, mood disturbance, and anxiety; E11.9 Type 2 diabetes mellitus without complications; S00.83XA Contusion of other part of head, initial encounter; S60.419A Abrasion of unspecified finger, initial encounter; W19.XXXA Unspecified fall, initial encounter; Z79.84 Long term (current) use of oral hypoglycemic drugs; Z79.899 Other long term (current) drug therapy
CPT/HCPCS: 99283

== ENCOUNTER 2023-07-30 05:48 | Day surgery (SDC) | payer MEDICARE, OTHER, SELFPAY ==
[2023-07-30] VITALS (7 sets, daily range): BP systolic 123–148; BP diastolic 54–60; PULSE 73–75; RESP 14–16; TEMP 36.3–36.6; O2SAT 93–99; BMI 20.7
--- NOTE | 2023-07-30 | ESO_PTH ---
PATIENT: RICARDO NUNEZ LOC: EN U#:[id number] AGE/SX: 82/F ROOM: RE07/30/[address]: Dr. Roque Herrera DO : 1940 BED: DIS: 07/30/2023 SPEC #: [id number] RECD: 07/30/23 09:03 STATUS: REBECCA REChristie #: [id number] JEANNE: 07/30/23 00:[address]: Roque Herrera DEPT: SURGICAL PATHOLOGY RECD BY: Shai Crane ENTERED: 08/02/23 09:04 SP TYPE: MIKEY MORIN DR: Dr. Mita Morton DO Tissues: Esophagus, NOS Procedures: Surgery Specimen Level IV HEADER OPERATION: EGD, biopsy, dilation PRE-OP DIAGNOSIS: Dysphagia TISSUE SUBMITTED: Proximal esophagus biopsy MICROSCOPIC DIAGNOSIS Proximal esophagus, biopsy: Fragments of squamous epithelium with moderate chronic inflammation. See comment. EVER/ 08/03/2023 COMMENT Changes consistent with eosinophilic esophagitis are not seen. Correlation with clinical, endoscopic findings and appropriate follow up are necessary. MICROSCOPIC DESCRIPTION Slides are reviewed. GROSS DESCRIPTION Received in fixative is one container labeled with the patient's name and designated Proximal esophagus biopsy. The specimen consists of multiple irregular fragments of light [place] soft tissue that in aggregate measure 2.0 x 0.5 x 0.1 cm. The specimen is totally submitted in one cassette. EVER/ 08/02/2023 TC:3 CPT:90944
[2023-07-30] MEDS: Lactated Ringers 1,000 ML 15 ML IV (06:13)
--- NOTE | 2023-07-30 06:28 | PRE.ANES_ITS ---
ASA Classification* ASA Classification ASA Classification: 3 Assessment & Plan Anesthesia* Anesthesia Assessment Anesthesia Assessment: Discussed sedation and/or anesthesia options, risks, benefits, and alternatives with patient/parents/legal guardian/POA. Questions invited. The patient/parents/legal guardian/POA seems to understand and agrees to proceed with anesthesia plan. Reviewed the physical assessment, medical history, allergy history and patient home medications list prior to surgery/procedure/anesthetic and documented any changes. Performed airway and anesthesia risk assessments. Anesthesia Type Anesthesia Type: MAC Pre-Assessment Diagnosis/Proposed Procedure Planned Operative Procedure(s): EGD Anesthesia History Anesthesia History - licensed loan officer: Anesthesia History - licensed loan officer Hx Hospitalization Yes: 06/2022 LOWER LEGS EDEMA 07/27/23 09:35 Any Problems With Anesthesia No 07/27/23 09:35 Cholinesterase deficiency No 07/27/23 09:35 You/Your Family Experience No 07/27/23 09:35 fever (hyperthermia) with Relationship Recent Exposure to Contagious No 07/30/23 06:06 Disease Does patient have nerve No 07/27/23 09:35 stimulator Patient instructed to have device shut off --Does patient have Pacemaker or ICD? When Was Last Pacemaker Check QUESTION #4 FULL TEXT: You/Your Family Experience fever (hyperthermia) with Anesthesia Last Oral Intake Last Oral intake: Last Oral Intake NPO since Meds taken in AM with sips of water? Meds patient instructed to take am of surgery PONV PONV - licensed loan officer: PONV - licensed loan officer Female Yes 07/27/23 09:35 HX of Motion Sickness No 07/27/23 09:35 HX of N/V After Surgery No 07/27/23 09:35 Non-Smoker Yes 07/27/23 09:35 Duration of Surgery greater No 07/27/23 09:35 than 60 minutes Number of Risk Factors 2 07/27/23 09:35 PONV Score Moderate Risk 07/27/23 09:35 Height & Weight Height & Weight: Anesthesia: Height & Weight Height 4 ft 11 in 07/30/23 06:06 Weight: 46.6 kg 07/30/23 06:06 Body Mass Index (BMI) 20.7 07/30/23 06:06 Respiratory Assessment Respiratory Assessment - licensed loan officer: Respiratory Tract Infection Hx - licensed loan officer Hx Respiratory Tract Infection No 07/27/23 09:35 STOP Sleep Apnea STOP Sleep Apnea - licensed loan officer: STOP Sleep Apnea - licensed loan officer Hx Hypertension Yes: CONTROLLED WITH MED 07/27/23 09:35 Hx Sleep Apnea No 07/27/23 09:35 CPAP BIPAP Do you snore loudly (louder No 07/27/23 09:35 than talking or can be heard Do you often feel tired/ No 07/27/23 09:35 fatigued/ sleepy during daytime? Has anyone observed you stop No 07/27/23 09:35 breathing during sleep? STOP Results Negative 07/27/23 09:35 QUESTION #5 FULL TEXT : Do you snore loudly (louder than talking or can be heard through closed doors)? Tobacco Use History Tobacco Use History - licensed loan officer: Tobacco Use History - licensed loan officer Tobacco Use Smoking Status Never smoker 07/27/23 09:35 Hx Tobacco Use No 07/27/23 09:35 Years Smoking Packs Smoked per Day Smoking Cessation Date was within the last 15 years Hx Smoking Cessation Date Hx Smoking Cessation Counseling Hematologic Medial History Hematologic Hx - licensed loan officer: Hematologic Medical Hx - manager documentation Hx of Blood Transfusion No 07/27/23 09:35 Hx of Transfusion in last 3 No 07/27/23 09:35 Months Date of Last Transfusion (if within last 3 months) Ever experience any problems No 07/27/23 09:35 with transfusion(s)? Specify any problems Hx of Preganancy in last 3 No 07/27/23 09:35 Months Nurse Filling Out Transfusion VCHRISTIN 07/27/23 09:35 & Questions: Date: 07/27/23 07/27/23 09:35 Time: 09:36 07/27/23 09:35 Patient unable to answer at this time (ie. confused, unrespo /Reproduction History /Reproductive History - licensed loan officer: /Reproductive Hx- licensed loan officer Hx Now Gestational Age (in weeks): EDC: Hx Hx Para Hx Section SAB No 07/27/23 09:35 Active Medications Active Medications: Current Medications Generic Name Dose Route Start Last Admin Trade Name Freq PRN Reason Stop Dose Admin Lactated Ringer's 1,000 mls @ 15 mls/hr 07/30/23 06:00 07/30/23 06:13 IV 15 mls/hr .Q48H MATEUS Administration Anesthesia Focused Assessment* Temperature: 97.3 F Pulse Rate: 73 Blood Pressure: 144/54 Respiratory Rate: 16 Pulse Ox: 99 Airway Assessment Mouth opens: >3 cm Mallampati Score: II Focused Labs Anesthesia Preop lab: CBC WBC 5.1 K/mm3 (4.4-11.0) 07/09/22 06:30 RBC 3.60 M/mm3 (4.2-5.4) L 07/09/22 06:30 Hgb 10.0 g/dL (12.0-15.0) L 07/09/22 06:30 Hct 32.8 % (37-47) L 07/09/22 06:30 Plt Count 207 K/mm3 (150-450) 07/09/22 06:30 CHEMISTRY Potassium 4.3 mmol/L (3.5-5.1) 07/09/22 06:30 Sodium 144 mmol/L (136-145) 07/09/22 06:30 BUN 30 mg/dL (7-18) H 07/09/22 06:30 Creatinine 0.85 mg/dL (0.55-1.02) 07/09/22 06:30 Glucose 115 mg/dL (74-106) H 07/09/22 06:30 POC Glucose 131 mg/dL (74-106) H 05/13/22 15:54 COAG PT 14.7 SECONDS (11.7-14.9) 05/13/22 05:40 Review of Systems (Anesthesia) ROS Narrative System reviewed and no additional complaints, except as documented. [facility] Medical History (Updated 04/12/23 @ 00:01 by Background Pino) Wears glasses Wears dentures Wears partial dentures Bladder disease Low iron Back pain Hypertension Difficulty swallowing History of hiatal hernia Gastric reflux Non-smoker Leg cramps Cardiology follow-up encounter History of CHF (congestive heart failure) History of heart attack Wears hearing aid in both ears Diabetes Dementia Dyslipidemia Iron deficiency anemia, unspecified Paroxysmal atrial fibrillation Atherosclerotic heart disease of [place] coronary artery without angina pectoris Persistent atrial fibrillation Gallstone of bile duct with gallbladder inflammation h/o throat surgery Hyperlipidemia Anemia Home Medications ?Medication ?Instructions ?Recorded ?Last Taken ?Type sertraline 50 mg tablet 50 mg PO DAILY 10/18/18 Unknown History torsemide 20 mg tablet 20 mg PO DAILY 10/18/18 Unknown History metformin 500 mg tablet 500 mg PO BID 05/12/22 Unknown History metoprolol tartrate 25 mg tablet 12.5 mg PO DAILY 05/12/22 07/30/23 History tizanidine 4 mg tablet 4 mg PO TID PRN PRN Muscle Spasm 05/12/22 Unknown History omeprazole 40 mg capsule,delayed 40 mg PO DAILY 04/04/23 Unknown History release rivastigmine tartrate 3 mg capsule 3 mg PO BID 04/04/23 Unknown History oxybutynin chloride 5 mg tablet 5 mg PO BID 07/23/23 Unknown History mirtazapine 15 mg tablet 15 mg PO QHS 07/27/23 Unknown History Allergy/AdvReac Type Severity Reaction Status Date / Time ticagrelor (From HipSwapilinInnovega) Allergy Shortness Verified 07/30/23 06:05 of breath Family History Other no pertinent family medical hsitory Surgical History (Updated 07/27/23 @ 09:35 by Riana Sandy) History of esophagogastroduodenoscopy (EGD) Hx of partial thyroidectomy History of esophagogastroduodenoscopy (EGD) H/O colonoscopy H/O eye surgery H/O heart artery stent Social History Smoking Status: Never smoker
--- NOTE | 2023-07-30 06:42 | PCM.HP.BLA ---
History and Physical Date of Admission: 07/30/23 RICARDO NUNEZ, is a 82 F who presents to the office today for follow up. EGD 01.04.23 Esophageal mucosal changes consistent with eosinophilic esophagitis. Moderate Schatzki ring. Dilated. Large hiatal hernia. Bile gastritis. No gross lesions in the duodenal bulb. Biopsies were taken with a cold forceps for evaluation of eosinophilic esophagitis. OV 6.14.24 Pt's daughter states that pt is doing well, but has really slowed down with her eating; pt's daughter states it takes her an hour to eat a sandwich. BM are normal. Continues with omeprazole. ROS Const Constitutional: No fatigue, fever(s) or weight change ENT ENT: Positive for difficulty swallowing Gastro GI: Positive for difficulty swallowing; No abdominal pain, belching, bloating, change in bowel habits, change in stool character, coffee ground emesis, constipation, cramping, diarrhea, heartburn, feeling full early, excessive flatus, incontinent of stools, Vomiting blood/hematemesis, Blood in stool, loose stools, Black,tarry stools, nausea/dyspepsia, pain with swallowing, vomiting or other Musc Musculoskeletal: Positive for back pain, stiffness and sciatica; No joint pain Skin Skin: Positive for dry skin; No yellowing of the eye or itchy eyes Psych Psychiatric: Positive for anxiety, No depression and Positive for Temper Tantrums Endo Endocrine: No fatigue or weight change Aller/Imm Allergy/Immunologic: No itchy eyes Puneet/Lymp Hematologic/Lymphatic: No easy bleeding or easy bruising Exam Const General: cooperative and well developed [facility] Head: normal to inspection and atraumatic Ears: hearing grossly normal bilaterally Nose: nasal discharge clear Face and sinus: normal facial exam Mouth: oral mucosae normal Throat: abnormal tonsil bilaterally hypertrophy 1+ Resp Effort & Inspection: normal respiratory effort and no audible wheezes Auscultation: Bilateral: Clear to Auscultation Cardio Palpation: normal PMI Rate: regular rate Rhythm: regular rhythm Neuro General: patient alert and CN's II-XI intact bilaterally Psych Appearance: grossly normal Mental Status: mental status grossly normal Assessment and Plan Assessment and Plan (1) Dysphagia: Status: Acute Qualifiers: Dysphagia type: esophageal phase Qualified Code(s): R13.19 - Other dysphagia (2) Alzheimer's dementia: Status: Chronic Qualifiers: Alzheimer's disease onset: late onset Dementia severity: unspecified severity Dementia behavioral or psychological symptom: without behavioral, psychotic, or mood disturbance or anxiety Qualified Code(s): G30.1 - Alzheimer's disease with late onset; F02.80 - Dementia in other diseases classified elsewhere, unspecified severity, without behavioral disturbance, psychotic disturbance, mood disturbance, and anxiety Plan: I gave her some Megace with small amount of steroids. She has been maintaining her weight. Her daughter is really letting her eat what ever she wants to she has taken a very long time to eat and is having some trouble swallowing as she did prior to her undergoing upper endoscopy back in December 2022. She is having more dysphagia and not odynophagia. She is known to have a large hiatal hernia. Will h restart omeprazole 40 mg a day. We will schedule her for repeat upper endoscopy. Her daughter is okay with this plan. Coding Level of Care Code Off vis,est,level 4 Diagnoses Esophageal dysphagia R13.19 Dysphagia type: esophageal phase Late onset Alzheimer's dementia without behavioral disturbance, psychotic disturbance, mood disturbance, or anxiety, unspecified dementia severity G30.1; F02.80 Alzheimer's disease onset: late onset Dementia severity: unspecified severity Dementia behavioral or psychological symptom: without behavioral, psychotic, or mood disturbance or anxiety I have examined the patient and the H&P has been reviewed. There are no clinical changes since date of exam.
--- NOTE | 2023-07-30 06:59 | PCM.POST.ANE ---
Anesthesia: Postop Eval I Current Vital Signs Temperature: 97.9 F Pulse Rate: 74 Blood Pressure: 147/54 Respiratory Rate: 14 Pulse Ox: 96 Oxygen Delivery Method: Room Air Assessment Airway patent: Yes Spontaneous unlabored respirations: Yes Mental status: Asleep nausea: No Vomiting: No Anesthesia Complication: No Fluid Hydration Crystalloid volume administer (ml): 400 Total IV fluid infused: 400 Progress Note Anesthesia document: Postop Eval 1 completed: Yes
--- NOTE | 2023-07-30 07:04 | OP.EGD_ITS ---
Patient Name: Prema Villalpando Procedure Date: 07/30/2023 6:22 AM Date of : 1940 Age: 82 Procedure: Upper GI endoscopy Indications: Dysphagia Providers: Roque Herrera DO Referring MD: Mita Morton Medicines: Monitored Anesthesia Care Patient Profile: This is an 82 year old female. Refer to note in patient chart for documentation of history and physical. Patient has symptoms of dysphagia with both liquids and solids. Complications: No immediate complications. Procedure: Pre-Anesthesia Assessment: - Prior to the procedure, a History and Physical was performed, and patient medications and allergies were reviewed. The patient is competent. The risks and benefits of the procedure and the sedation options and risks were discussed with the patient. All questions were answered and informed consent was obtained. Patient identification and proposed procedure were verified by the physician in the pre-procedure area. Mental Status Examination: alert and oriented. Airway Examination: normal oropharyngeal airway and neck mobility. Respiratory Examination: clear to auscultation. CV Examination: normal. Prophylactic Antibiotics: The patient does not require prophylactic antibiotics. Prior Anticoagulants: The patient has taken no anticoagulant or antiplatelet agents. ASA Grade Assessment: III - A patient with severe systemic disease. After reviewing the risks and benefits, the patient was deemed in satisfactory condition to undergo the procedure. The anesthesia plan was to use monitored anesthesia care (MAC). Immediately prior to administration of medications, the patient was re-assessed for adequacy to receive sedatives. The heart rate, respiratory rate, oxygen saturations, blood pressure, adequacy of pulmonary ventilation, and response to care were monitored throughout the procedure. The physical status of the patient was re-assessed after the procedure. After obtaining informed consent, the endoscope was passed under direct vision. Throughout the procedure, the patient's blood pressure, pulse, and oxygen saturations were monitored continuously. The Endoscope was introduced through the mouth, and advanced to the second part of duodenum. The upper GI endoscopy was accomplished without difficulty. The patient tolerated the procedure well. Scope In: 6:45:41 AM Scope Out: 6:52:05 AM Total Procedure Duration Time 0 hours 6 minutes 24 seconds Findings: One benign-appearing, intrinsic severe (stenosis; an endoscope cannot pass) stenosis was found 19 to 24 cm from the incisors. This stenosis measured 5 cm (in length). The stenosis was traversed after dilation. A guidewire was placed and the scope was withdrawn. Dilation was performed with a Savary dilator with no resistance at 42 Fr. The dilation site was examined and showed moderate mucosal disruption. Estimated blood loss was minimal. Mucosal changes including ringed esophagus and small-caliber esophagus were found in the upper third of the esophagus and in the middle third of the esophagus. Biopsies were obtained from the proximal and distal esophagus with cold forceps for histology of suspected eosinophilic esophagitis. Verification of patient identification for the specimen was done. Estimated blood loss was minimal. A large hiatal hernia was present. Diffuse moderately erythematous mucosa without bleeding was found in the entire examined stomach. No gross lesions were noted in the first portion of the duodenum. Impression: - Benign-appearing esophageal stenosis. Dilated. - Esophageal mucosal changes suggestive of eosinophilic esophagitis. - Large hiatal hernia. - Erythematous mucosa in the stomach. - No gross lesions in the first portion of the duodenum. - Biopsies were taken with a cold forceps for evaluation of eosinophilic esophagitis. Recommendation: - Discharge patient to a [facility]. - Full liquid diet today. - Continue present medications. Procedure Code(s): --- Professional --- 01053, Esophagogastroduodenoscopy, flexible, transoral; with insertion of guide wire followed by passage of dilator(s) through esophagus over guide wire 18961, 59, Esophagogastroduodenoscopy, flexible, transoral; with biopsy, single or multiple CPT copyright 2021 [employer]. All rights reserved. The codes documented in this report are preliminary and upon medical record coder review may be revised to meet current compliance requirements. Roque Herrera DO 07/30/2023 7:03:48 AM This report has been signed electronically. Number of Addenda: 0 Note Initiated On: 07/30/2023 6:22 AM
--- NOTE | 2023-07-30 07:04 | OP.CCLET_ITS ---
07/30/2023 iMta Morton Re : Upper GI endoscopy procedure for Prema Villalpando Dear Praveen This procedure was performed on Sunday, July 30, 2023. My impressions and recommendations are as follows: Impressions : - Benign-appearing esophageal stenosis. Dilated. - Esophageal mucosal changes suggestive of eosinophilic esophagitis. - Large hiatal hernia. - Erythematous mucosa in the stomach. - No gross lesions in the first portion of the duodenum. - Biopsies were taken with a cold forceps for evaluation of eosinophilic esophagitis. Recommendations : - Discharge patient to a residential. - Full liquid diet today. - Continue present medications. My findings are described in the full procedure note, which is enclosed. If I can be of further assistance, please feel free to contact me at . Sincerely, Roque Herrera, 07/30/2023 7:03:48 AM This report has been signed electronically.
--- NOTE | 2023-07-30 08:23 | PCM.POSTANE2 ---
Anesthesia Postop Eval I Sum Postop Eval Completion status Anesthesia document: Postop Eval 1 completed: Yes Anesthesia Postop Eval I Summary Anesthesia Postop Eval I Summary: Anesthesia Postop Eval I: Assessment Summary Airway patent Yes 07/30/23 07:08 [email or web address] Spontaneous unlabored Yes 07/30/23 07:08 [email or web address] respirations Mental status Asleep 07/30/23 07:08 [email or web address] nausea No 07/30/23 07:08 [email or web address] Vomiting No 07/30/23 07:08 [email or web address] Anesthesia Postop Eval I: Fluid Summary Crystalloid volume administer 400 07/30/23 07:08 [email or web address] (ml) Colloids volume administered ( ml) Blood Product volume administered (ml) Total IV fluid infused 400 07/30/23 07:08 [email or web address] Anesthesia Postop Eval I: Summary Notes Anesthesia Complication No 07/30/23 07:08 [email or web address] Anesthesia Complication Comment: Post-operative progress note Anesthesia: Postop Eval II Evaluation Mental status: Awake Pain Level: 0 nausea: No Vomiting: No Complications Anesthesia Complication: No
[2023-07-30 11:11] LABS: Bedside Glucose 126 mg/dL (74-106)
== END 2023-07-30 08:01 | disposition home or self-care (01) ==
LOC: EN 05:48 → AC 05:49
PROVIDERS: PCP Family Medicine; Referring Provider Family Medicine; Visit Provider Internal Medicine Gastroenterology
PROC: 0DJ08ZZ Inspection of Upper Intestinal Tract, Via Natural or Artificial Opening Endoscopic (ICD-10-PCS; CPT 43235; principal; 2023-07-30 06:25)
DX: K22.2 Esophageal obstruction (principal); F02.80 Dementia in other diseases classified elsewhere, unspecified severity, without behavioral disturbance, psychotic disturbance, mood disturbance, and anxiety; G30.1 Alzheimer's disease with late onset; E11.9 Type 2 diabetes mellitus without complications; K21.00 Gastro-esophageal reflux disease with esophagitis, without bleeding; K44.9 Diaphragmatic hernia without obstruction or gangrene; Z79.84 Long term (current) use of oral hypoglycemic drugs; Z79.899 Other long term (current) drug therapy; E78.5 Hyperlipidemia, unspecified; I10 Essential (primary) hypertension; Z87.19 Personal history of other diseases of the digestive system
CPT/HCPCS: 43248; 43239; 82962; 88305; J7120; C1769; J2405

== ENCOUNTER → 2023-11-22 | Outpatient (CLI) | payer MEDICARE, OTHER, SELFPAY ==
--- NOTE | 2023-11-22 17:06 | RAD_ITS ---
STUDY: X-RAY CHEST REASON FOR EXAM: Female, 83 years old. cough TECHNIQUE: PA and lateral COMPARISON: June 01, 2022 FINDINGS: The lungs are clear and expanded. There is no demonstrated pleural abnormality. Normal size heart. Normal mediastinum and tim. Normal visualized pulmonary arteries. Mildly calcified aortic arch and descending thoracic aorta. Normal visualized thoracic spine. Normal visualized ribs, clavicles, and shoulders. Large hiatal hernia with air-fluid level. There is no demonstrated abnormality of the visualized soft tissue structures of the upper abdomen. RAD/Chest PA and Lateral IMPRESSION: No acute cardiopulmonary pathology. Incidental finding of large hiatal hernia with air-fluid level Electronically Signed: Barak Cheema MD at 18:56 EDT ,
== END | disposition home or self-care (01) ==
PROVIDERS: PCP Family Medicine; Referring Provider Physician Assistant; Visit Provider Physician Assistant
DX: R05.9 Cough, unspecified (principal)
CPT/HCPCS: 71046

== ENCOUNTER → 2023-12-17 | Outpatient (REF) | payer MEDICARE, OTHER, SELFPAY ==
[2023-12-17 07:14] LABS: Absolute Lymphocyte Count 1.02 X10^3/uL (0.83-4.51); Absolute Neutrophil Count 6.7 X10^3/uL (2.0-7.7); Basophil# 0.03 X10^3/uL; Basophil% 0.4 % (0-1); Eosinophils% 1.2 % (0-5); Hematocrit 35.9 % (37-47); Hemoglobin 11.5 g/dL (12.0-15.0); Lymphocyte # 1.02 X10^3/ul (0.83-4.51); Lymphocyte % 12.3 % (19-41); Mean Corpuscular Hgb 29.5 pg (27.0-32.0); Mean Corpuscular Volume 92.1 fL (81-99); Mean Platelet Vol. 12.4 fl (6.2-12.0); Monocyte# 0.47 X10^3/uL; Monocyte% 5.7 % (0-10); NRBC Flagged by Analyzer 0 % (0-5); Neutrophil # 6.67 X10^3/uL (2.7-7.7); Neutrophil % 80.2 % (47-70); Platelet Count 190 K/mm3 (150-450); RBC Distribution Width CV 13.6 % (11.6-14.6); RBC Distribution Width SD 46.4 fl (35.1-43.9); White Blood Count 8.3 K/mm3 (4.4-11.0)
[2023-12-17 07:30] LABS: Anion Gap 2 (5-15); BUN 28 mg/dL (7-18); BUN/Creat Ratio 27.7 RATIO (10-20); Calcium,Total 9.4 mg/dL (8.5-10.1); Chloride 110 mmol/L (98-107); Cholesterol 152 mg/dL (200); Creatinine, Serum 1.01 mg/dL (0.55-1.02); EST Glomerular Filtration Rate 56 mL/min (>60); Est Glom Filt Rate - Afr Amer 68 mL/min (>60); Glucose 152 mg/dL (74-106); High Density Lipoprotein 66 mg/dL; Potassium 3.7 mmol/L (3.5-5.1); Sodium Level 143 mmol/L (136-145); Triglycerides 52 mg/dL; Very Low Density Lipoprotein 10 mg/dL (5-40)
[2023-12-17 08:26] LABS: Hemoglobin A1c 6.4 % (3.8-5.6)
== END ==
LOC: OLS.WHLTSB 05:00
PROVIDERS: PCP Family Medicine; Visit Provider Internal Medicine
DX: E11.9 Type 2 diabetes mellitus without complications (principal); D62 Acute posthemorrhagic anemia
CPT/HCPCS: 36415; 80048; 80061; 83036; 85025

== ENCOUNTER → 2024-03-16 05:00 | Outpatient (REF) | payer MEDICARE, OTHER, SELFPAY ==
[2024-03-16 09:38] LABS: Absolute Lymphocyte Count 1.69 X10^3/uL (0.83-4.51); Absolute Neutrophil Count 2.5 X10^3/uL (2.0-7.7); Basophil# 0.04 X10^3/uL; Basophil% 0.8 % (0-1); Eosinophil# 0.16 X10^3/uL; Eosinophils% 3.3 % (0-5); Hematocrit 33.5 % (37-47); Hemoglobin 10.6 g/dL (12.0-15.0); Lymphocyte # 1.69 X10^3/ul (0.83-4.51); Mean Corp Hgb Conc 31.6 g/dL (32-36); Mean Corpuscular Hgb 29.1 pg (27.0-32.0); Mean Platelet Vol. 12.6 fl (6.2-12.0); Monocyte# 0.44 X10^3/uL; Monocyte% 9.1 % (0-10); NRBC Flagged by Analyzer 0 % (0-5); Neutrophil # 2.49 X10^3/uL (2.7-7.7); Neutrophil % 51.6 % (47-70); Platelet Count 183 K/mm3 (150-450); RBC Distribution Width CV 13.3 % (11.6-14.6); RBC Distribution Width SD 45.3 fl (35.1-43.9); Red Blood Count 3.64 M/mm3 (4.2-5.4); White Blood Count 4.8 K/mm3 (4.4-11.0)
[2024-03-16 09:52] LABS: ALB/GLOB Ratio 0.5 RATIO (0.9-2.4); AST(SGOT) 63 U/L (15-37); Alanine Aminotransfer ALT/SGPT 51 U/L (13-56); Albumin, Serum 2.9 g/dL (3.2-5.0); Alkaline Phosphatase 290 U/L (45-117); Anion Gap 6 (5-15); BUN 24 mg/dL (7-18); BUN/Creat Ratio 25.9 RATIO (10-20); Calcium,Total 9.6 mg/dL (8.5-10.1); Chloride 104 mmol/L (98-107); Creatinine, Serum 0.93 mg/dL (0.55-1.02); EST Glomerular Filtration Rate 62 mL/min (>60); Est Glom Filt Rate - Afr Amer 75 mL/min (>60); Globulin 5.3 g/dL (2.2-4.2); Glucose 104 mg/dL (74-106); Potassium 4.2 mmol/L (3.5-5.1); Protein, Total 8.2 g/dL (6.4-8.2); Sodium Level 139 mmol/L (136-145)
[2024-03-16 16:41] LABS: Hemoglobin A1c 4.8 % (3.8-5.6)
== END ==
LOC: OLS.WHLTSB 05:00
PROVIDERS: PCP Family Medicine; Visit Provider Internal Medicine
DX: D62 Acute posthemorrhagic anemia (principal); E78.1 Pure hyperglyceridemia; R41.82 Altered mental status, unspecified; F03.90 Unspecified dementia, unspecified severity, without behavioral disturbance, psychotic disturbance, mood disturbance, and anxiety; E11.9 Type 2 diabetes mellitus without complications
CPT/HCPCS: 36415; 80053; 83036; 85025

== ENCOUNTER → 2024-06-12 | Outpatient (REF) | payer MEDICARE, OTHER, SELFPAY ==
[2024-06-12 08:39] LABS: Absolute Neutrophil Count 2.6 X10^3/uL (2.0-7.7); Basophil# 0.05 X10^3/uL; Basophil% 1.1 % (0-1); Eosinophil# 0.23 X10^3/uL; Hematocrit 30.3 % (37-47); Hemoglobin 9.9 g/dL (12.0-15.0); Lymphocyte % 30.2 % (19-41); Mean Corp Hgb Conc 32.7 g/dL (32-36); Mean Corpuscular Hgb 28.8 pg (27.0-32.0); Mean Corpuscular Volume 88.1 fL (81-99); Mean Platelet Vol. 12.3 fl (6.2-12.0); Monocyte# 0.36 X10^3/uL; Monocyte% 7.8 % (0-10); NRBC Flagged by Analyzer 0 % (0-5); Neutrophil # 2.58 X10^3/uL (2.7-7.7); Neutrophil % 55.7 % (47-70); Platelet Count 163 K/mm3 (150-450); RBC Distribution Width CV 13.8 % (11.6-14.6); RBC Distribution Width SD 43.5 fl (35.1-43.9); Red Blood Count 3.44 M/mm3 (4.2-5.4); White Blood Count 4.6 K/mm3 (4.4-11.0)
[2024-06-12 10:31] LABS: ALB/GLOB Ratio 0.8 RATIO (0.9-2.4); AST(SGOT) 48 U/L (<=31); Alanine Aminotransfer ALT/SGPT 28 U/L (<=34); Albumin, Serum 3.2 g/dL (3.4-4.8); Alkaline Phosphatase 323 U/L (35-104); Anion Gap 10 (5-15); BUN 21 mg/dL (4-19); BUN/Creat Ratio 22.8 RATIO (10-20); Calcium,Total 9.1 mg/dL (7.6-11.0); Carbon Dioxide 25.5 mmol/L (21.0-32.0); Chloride 103 mmol/L (98-108); Cholesterol 153 mg/dL (<=200); Creatinine, Serum 0.92 mg/dL (0.70-1.20); EST Glomerular Filtration Rate 62 (>60); Globulin 4.1 g/dL (2.2-4.2); Glucose 98 mg/dL (70-99); High Density Lipoprotein 53 mg/dL; Low Density Lipoprotein Calc. 85 mg/dL; Potassium 3.7 mmol/L (3.3-5.1); Protein, Total 7.4 g/dL (5.9-8.4); Sodium Level 139 mmol/L (133-145); Triglycerides 75 mg/dL; Very Low Density Lipoprotein 15 mg/dL (5-40); cholesterol:hdl ratio screen 2.87
[2024-06-12 11:58] LABS: Hemoglobin A1c 6.2 % (<=5.6)
== END ==
LOC: OLS.WHLCAR 05:00
PROVIDERS: PCP Family Medicine; Visit Provider Internal Medicine
DX: E11.9 Type 2 diabetes mellitus without complications (principal); G30.9 Alzheimer's disease, unspecified; F02.811 Dementia in other diseases classified elsewhere, unspecified severity, with agitation; I48.0 Paroxysmal atrial fibrillation; E78.5 Hyperlipidemia, unspecified
CPT/HCPCS: 36415; 80053; 80061; 83036; 85025

== ENCOUNTER → 2024-08-09 | Outpatient (REF) | payer MEDICARE, OTHER, SELFPAY ==
[2024-08-09 08:30] LABS: Hematocrit 30.2 % (37-47); Hemoglobin 9.9 g/dL (12.0-15.0); Immature Granulocytes Count 0.010 X10^3/uL (0.0-0.0); Mean Corp Hgb Conc 32.8 g/dL (32-36); Mean Corpuscular Volume 88.6 fL (81-99); Mean Platelet Vol. 12.1 fl (6.2-12.0); NRBC Flagged by Analyzer 0 % (0-5); Platelet Count 164 K/mm3 (150-450); RBC Distribution Width CV 13.3 % (11.6-14.6); RBC Distribution Width SD 43.3 fl (35.1-43.9); Red Blood Count 3.41 M/mm3 (4.2-5.4); White Blood Count 4.5 K/mm3 (4.4-11.0)
== END ==
LOC: OLS.WHLCAR 05:00
PROVIDERS: PCP Family Medicine; Visit Provider Internal Medicine
DX: D50.9 Iron deficiency anemia, unspecified (principal); I48.0 Paroxysmal atrial fibrillation; E11.9 Type 2 diabetes mellitus without complications
CPT/HCPCS: 36415; 85025

== ENCOUNTER → 2024-08-18 | Outpatient (REF) | payer MEDICARE, OTHER, SELFPAY ==
--- OUTSIDE RECORDS SUMMARY | 2024-08-18 04:10 | XMS RPT_ITS | CCD ---
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 Mita Morton Primary Care Provider Dr. Zonia Benitez Emergency Provider Dr. Jovi Pack Admit Provider Dr. Jovi Pack Attending Provider Dr. Jovi Pack Other Provider Dr. Roque Herrera Attending Provider Dr. Deonte Guardado Attending Provider Dr. Jovi Pack Referring Provider Mita Morton DO Unavailable [facility] Primary Care Provider Soledad yung [facility] Primary Care Provider Unav ailable Mita Morton DO Primary Care Provider Mita Morton DO Unavailable Mita Morton DO Primary Care Provider Dr. Mita Morton Primary Care Provider Hakan WHELAN, SAILOR-Mira Lehman Attending Provider Dr. Anabel Hughes Attending Provider Dr. Mita Morton Primary Care Provider Dr. Mita Morton Referring Provider Dr. Roxanne Herreran Attending Provider FriendDr. Nevarez Other Provider Unavailable Primary Care Provider UnavailBRITTANY Hernandez Attending Unavailable ESTERLE, MITA Primary Care Unavailable ESTERLE, MITA Attending Unavailable ESTERLE, MITA Referring Unavailable ESTERLE, MITA Primary Care Unavailable ESTERLE, MITA Attending Unavailable ESTERLE, MITA Referring Unavailable ESTERLE, MITA Primary Care Unavailable TONI BEY Attending Unavailable ESTERLE, MITA Primary Care Unavailable Esterle DO, Mita M Unavailable [phone] No, Pcp Primary Care Provider Unavailabl e Esterle DO, Mita M Unavailable [phone] Estergonzalo DO, Dr. Mita Lima Primary Care Provider Anabel Duvall MD Attending Provider Unavaila melany Duvall MD, Dr. Little Attending Provider Hakan SAILOR-CFallon Attending Provider Esterle, Mita M Primary Care Unavailable Anabel Blevins Attending Unavailabl e Esterle, Mita M Primary Care Unavailable Oleghe Anabel WALSH Attending Unavailabl e Esterle, Mita M Primary Care Unavailable Oleghe Anabel WALSH Attending Unavailabl e Esterle, Mita M Primary Care Unavailable Erich Barrett Attending Unavailable Erich Barrett Referring Unavailable Erich Barrett Attending Unavailable Esterle, Mita M Primary Care Unavailable Esterle, Mita M Referring Unavailable Esterle, Mita M Primary Care Unavailable Tickton SAILOR, Fallon Attending Unavailable Rebekahton SAILOR, Fallon Attending Unavailable Esterle, Mita M Primary Care Unavailable Tickton SAILOR, Fallon Attending Unavailable Esterle, Mita M Primary Care Unavailable Esterle, Mita M Primary Care Unavailable Rebekahton SAILOR, Fallon Attending Unavailable Anabel Duvall Attending Unavailable Esterle, Mita M Primary Care Unavailable López Antonio Attending Unavailable Esterle, Mita M Primary Care Unavailable Esterle, Mita M Primary Care Unavailable Anabel Duvall Attending Unavailable Esterle, Mita M Primary Care Unavailable Rebekahton SAILOR, Fallon Attending Unavailable Esterle, Mita M Primary Care Unavailable Anabel Duvall Attending Unavailable Mita Morton Primary Care Unavailable Anabel Blevins Attending Unavailerlinda e Allergies Allergy Classification Reported Allergen(s) Allergy Type Date of Onset Reaction(s) Facility Ticagrelor (2 sources) Ticagrelor Drug Allergy 9 Shortness Of Breath [facility] Work Phone: (16 sources) Ticagrelor Drug Allergy 9 Shortness Of Breath [facility] Work Phone: (20 sources) Ticagrelor Propensity to adverse reactions 9 Shortness of breath [facility] (1 source) Ticagrelor Drug Allergy 4 [facility] Repository Medications Current Medications Medication Drug Class(es) Dates Sig (Normalized) Sig (Original) acetaminophen 325 mg / oxyCODONE hydrochloride 5 mg oral tablet (1 source) Opioid Agonist Start: 02-15-2019 End: 02-22-2019 oxyCODONE-acetaminop hen (PERCOCET) 5-325 MG per tablet Indications: 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 Intended supply: 7 days. Take lowest dose possible to manage pain 28 tablet 0 02/15/2019 02/22/2019 Active albuterol 0.833 mg/ml / ipratropium bromide 0.167 mg/ml inhalation solution (2 sources) Anticholinergic, beta2-Adrenergic Agonist Start: 02-16-2019 ipratropium-albutero l (DUONEB) nebulizer solution 1 ampule Start: 02-15-2019 End: 02-16-2019 1 ampule, Inhalation, EVERY 4 HOURS WHILE AWAKE, First dose on Wed02/15/19 at 2000 amoxicillin 500 mg oral capsule (2 sources) Penicillin-class Antibacterial Start: 05-21-2020 take 1 capsule by mouth every eight hours amoxicillin (AMOXIL) 500 MG capsule TAKE 1 CAPSULE BY MOUTH EVERY 8 HOURS UNTIL GONE 0 05/21/2020 Active amoxicillin 875 mg / clavulanate 125 mg oral tablet (3 sources) Penicillin-class Antibacterial Start: 11-22-2023 Amoxicillin-Pot Clavulanate 875-125 mg tablet Active 1 {tbl} PO TWICE A DAY November 22, 2023 12:00am Start: 09-17-2018 End: 09-27-2018 take 1 tablet by mouth every twelve hours amoxicillin-clavulanate (AUGMENTIN) 875-125 MG per tablet Take 1 tablet by mouth every 12 hours for 10 days 12 tablet 0 09/17/2018 09/27/2018 Active Start: 09-17-2018 amoxicillin-cl avulanate (AUGMENTIN) 875-125 MG per tablet 1 tablet ascorbic acid 60 mg / beta carotene 5000 unt / copper sulfate 40 mg / dl-alpha tocopheryl acetate 30 unt / sodium selenite 0.04 mg / zinc oxide 40 mg oral tablet (4 sources) Vitamin C take 1 tablet by mouth once daily Multiple Vitamins-Minerals (THERAPEUTIC MULTIVITAMIN-MINERALS) tablet Take 1 tablet by mouth daily 0 Active chlorhexidine gluconate 1.2 mg/ml mouthwash (2 sources) Start : 05-21 chlorhexidine (PERIDEX) 0.12 % solution RINSE WITH 15ML FOR 30 SECONDS AND SPIT USE TWICE DAILY AFTER BRUSHING AND FLOSSING . DO NOT EAT OR DRINK FOR ONE HOUR AFTER USE 0 05/21/2020 Active clopidogrel 75 mg oral tablet (20 sources) P2Y12 Platelet Inhibitor Start : 08-17 End: 06-16 take 1 tablet by mouth once daily clopidogrel (Plavix) 75 MG tablet Take 1 tablet by mouth daily. 0 11/14/2018 Active clotrimazole 10 mg oral lozenge (3 sources) Azole Antifungal Start : 05-12 take 10 mg by mouth three times daily as needed Clotrimazole Active 10 MG PO 3 TIMES DAILY NEEDED May 12, 2022 12:00am dicyclomine hydrochloride 10 mg oral capsule (20 sources) Anticholinergic Start : 09-18 End: 08-25 take 1 capsule by mouth three times daily before mealtime dicyclomine (Bentyl) 10 MG capsule TAKE 1 CAPSULE BY MOUTH THREE TIMES DAILY BEFORE MEAL(S) 0 11/14/2018 Active docusate sodium 100 mg oral capsule (1 source) Start : 02-17 docusate sodium (COLACE) capsule 100 mg donepezil hydrochloride 10 mg oral tablet (1 source) Start : 02-10 take 10 mg by mouth once daily Donepezil Active 10 MG PO DAILY February 10, 2019 4:07pm 24 hr fesoterodine fumarate 4 mg extended release oral tablet (20 sources) take 1 tablet by mouth once daily, then take 1 tablet by mouth every twenty-four hours fesoterodine ER (Toviaz) 4 MG 24 hr tablet Take 4 mg by mouth daily. Active ibuprofen 800 mg oral tablet (2 sources) Nonsteroidal Anti-inflammatory Drug Start : 05-21 take 1 tablet by mouth every six hours for pain ibuprofen (ADVIL;MOTRIN) 800 MG tablet TAKE 1 TABLET BY MOUTH EVERY 6 HOURS FOR DENTAL PAIN 0 05/21/2020 Active magnesium hydroxide 80 mg/ml oral suspension (2 sources) Start : 02-11 take 30 mL by mouth once daily as needed for constipation 30 mL, Oral, DAILY PRN, Constipation, Starting 02/11/19 at 1227 First line therapy for constipation. Start: 09-15-2018 magnesium hydr oxide (MILK OF MAGNESIA) 400 MG/5ML suspension 30 mL metFORMIN hydrochloride 500 mg oral tablet (20 sources) Biguanide Start: 05-12-2022 End: 06-16-2022 take 1 tablet by mouth twice daily Metformin 500 mg tablet Active 500 mg PO TWICE A DAY May 12, 2022 12:00am metoprolol tartrate 25 mg oral tablet (20 sources) beta-Adrenergic Yessenia Start: 05-12-2022 Metoprolol Tartrate 25 mg tablet Active 12.5 mg PO DAILY May 12, 2022 12:00am Start: 05-12-2022 take 12.5 mg by mout h once daily Metoprolol Tartrate Active 12.5 MG PO DAILY May 11, 2022 11:00pm Start: 11-14-2018 End: 06-16-2022 take 0.5 tablet by mouth twice daily metoprolol tartrate (Lopressor) 25 MG tablet Take 0.5 tablets by mouth 2 times daily. 0 11/14/2018 06/16/2022 Discontinued (Stop taking at discharge) Start: 08-17-2018 End: 08-18-2023 take 25 mg by mouth twice daily 25 mg, Oral, 2 times d aily, First dose on 06/13/22 at 2100 metoprolol tartr ate (LOPRESSOR) 25 MG tablet Take 12.5 mg by mouth 2 times daily 0 Active mirtazapine 15 mg oral tablet (20 sources) Start: 07-27-2023 take 1 tablet by mouth at bedtime Mirtazapine 15 mg tablet Active 15 mg PO AT BEDTIME July 27, 2023 12:00am Start: 05-12-2022 End: 06-16-2022 take 15 mg by mouth at bedtime Mirtazapine Active 15 M G PO AT BEDTIME May 12, 2022 12:00am morphine sulfate (PF) injection 2 mg (1 source) Start: 02-15-2019 morphine sulfa te (PF) injection 2 mg Multiple Vitamins-Minerals (THERAPEUTIC MULTIVITAMIN-MINERALS) tablet (9 sources) take 1 tablet by mouth once daily Multiple Vitamins-Minerals (THERAPEUTIC MULTIVITAMIN-MINERALS) tablet Take 1 tablet by mouth daily 0 Suspended take 1 tablet by mouth once donna y Multiple Vitamins-Minerals (THERAPEUTIC MULTIVITAMIN-MINERALS) tablet Take 1 tablet by mouth daily 0 Active Multivitamin With Minerals (1 source) Start: 10-18-2018 take 1 tablet by mouth once daily Multivitamin With Minerals Active 1 TAB PO DAILY October 18, 2018 9:36am nystatin 979635 unt/ml oral suspension (3 sources) Polyene Antifungal Start: 05-13-2022 Nystatin Active 609614 UNIT PO EVERY 6 HOURS 56 7 May 13, 2022 12:00am administer 1/2 of dose in each side of the mouth omeprazole 40 mg delayed release oral capsule (20 sources) Proton Pump Inhibitor Start: 04-04-2023 take 1 capsule by mouth once daily Omeprazole 40 mg capsule,delayed release(DR/EC) Active 40 mg PO DAILY April 04, 2023 1:00am Start: 10-18-2018 End: 04-04-2023 take 1 capsule by mouth once daily Omeprazole (Prilosec) 40 MG capsule Discontinued 40 mg PO DAILY October 18, 2018 12:00am April 04, 2023 11:19am Start: 08-17-2018 End: 06-16-2022 take 1 capsule by mouth once daily omeprazole (PriLOSEC) [address] capsule Take 1 capsule by mouth daily. 0 11/14/2018 Active ondansetron 4 mg oral tablet (3 sources) Serotonin-3 Receptor Antagonist Start: 02-15-2019 End: 02-22-2019 take 1 tablet by mouth every six hours as needed for nausea ondansetron (ZOFRAN) 4 MG tablet Take 1 tablet by mouth every 6 hours as needed for Nausea or Vomiting 28 tablet 0 02/15/2019 02/22/2019 Active Start: 02-11-2019 4 mg, Intraven ous, EVERY 6 HOURS PRN, Nausea, Starting 02/11/19 at 1227 Start: 09-15-2018 ondansetron (Z OFRAN) injection 4 mg oxybutynin chloride 5 mg oral tablet (20 sources) Cholinergic Muscarinic Antagonist Start: 07-31-2022 take 1 tablet by mouth twice daily Oxybutynin Chloride 5 mg tablet Active 5 mg PO TWICE A DAY July 23, 2023 1:48pm Start: 05-12-2022 End: 07-23-2023 take 1 tablet by mouth once daily Oxybutynin Chloride 5 mg tablet Discontinued 5 mg PO DAILY May 12, 2022 12:00am July 23, 2023 1:49pm Start: 01-20-2022 End: 06-16-2022 take 1 tablet by mouth twice daily oxybutynin (Ditropan) 5 MG tablet Take 5 mg by mouth 2 times daily. 0 07/31/2022 Active oxyCODONE (1 source) Opioid Agonist Start: 02-15-2019 oxyCODONE (ROXICODONE) immediate release tablet 2.5 mg polyethylene glycol 3350 24535 mg powder for oral solution (6 sources) Osmotic Laxative Start: 06-13-2022 End: 06-19-2022 take 17 g by mouth once daily polyethylene glycol, PEG, 3350 (Miralax) 17 g packet Take 17 g by mouth daily for 3 days. 0 06/16/2022 06/19/2022 Active Start: 09-21-2018 End: 09-21-2018 polyethylene glycol (GLYCOLA X) packet 34 g Start: 09-20-2018 End: 09-20-2018 polyethylene glycol (GLYCOLA X) powder 238 g potassium chloride 10 meq extended release oral tablet (20 sources) Start: 06-16-2022 End: 06-16-2022 potassium chloride CR (Klor- Con M20) ER tablet 20 mEq Start: 02-13-2019 potassium chlo ride (KLOR-CON M) extended release tablet 20 mEq Start: 11-14-2018 take 1 tablet by smita th twice daily at mealtime potassium chloride ER (Micro-K) 10 MEQ ER capsule TAKE 1 TABLET BY MOUTH TWICE DAILY WITH MEALS 11/14/2018 Active Start: 10-18-2018 take 10 mEq by mouth once donna y Potassium Chloride Active 10 MEQ PO DAILY October 18, 2018 9:36am Start: 10-18-2018 End: 08-18-2023 take 1 tablet by mouth twice daily Potassium Chloride 10 MEQ tablet extended release Discontinued 10 meq PO TWICE A DAY October 18, 2018 12:00am July 23, 2023 1:49pm Start: 09-16-2018 End: 08-25-2022 take 1 tablet by mouth in the morning potassium chloride CR (Klor-Con M10) 10 MEQ ER tablet Take 1 tablet by mouth in the morning and 1 tablet in the evening. Take with meals. 0 10/02/2021 Active psyllium 3400 mg powder for oral suspension (7 sources) Start: 09-15-2018 Psyllium Husk (Aspartame) Active 1 PACKET PO DAILY October 18, 2018 9:36am QUEtiapine 25 mg oral tablet (1 source) Atypical Antipsychotic Start: 11-22-2023 Quetiapine 25 mg tablet Active 12.5 mg PO AT BEDTIME November 22, 2023 12:00am rivastigmine 3 mg oral capsule (20 sources) Start: 06-13-2022 End: 06-16-2022 take 3 mg by mouth twice daily 3 mg, Oral, 2 times daily, First dose on 06/13/22 at 2100 Start: 12-29-2021 take 1 capsule by [facility] twice daily Rivastigmine Tartrate 3 mg capsule Active 3 mg PO TWICE A DAY April 04, 2023 1:00am sertraline 50 mg oral tablet (20 sources) Serotonin Reuptake Inhibitor Start: 09-15-2018 End: 06-16-2022 take 1 tablet by mouth once daily Sertraline 50 MG tablet Active 50 mg PO DAILY October 18, 2018 12:00am sodium chloride flush 0.9 % injection 3 mL (1 source) Start: 02-11-2019 sodium chlorid e flush 0.9 % injection 3 mL therapeutic multivitamin-minera ls (Theragran-M) tablet (20 sources) take 1 tablet by mouth once daily therapeutic multivitamin-tunnel miner als (Theragran-M) tablet Take 1 tablet by mouth daily. Active take 1 tablet by mouth once donna y therapeutic multivitamin-minerals (Theragran- M) tablet Take 1 tablet by mouth daily. 0 Suspended take 1 tablet by mouth once donna y therapeutic multivitamin-minerals (Theragran- M) tablet Take 1 tablet by mouth daily. 0 Active therapeutic multivitamin-minerals 1 tablet (1 source) Start: 09-15-2018 take 1 tablet by mouth once daily 1 tablet, Oral, DAILY, First dose on Micheline 09/15/18 at 1400 tiZANidine 4 mg oral tablet (20 sources) Central alpha-2 Adrenergic Agonist Start: 01-20-2022 take 1 tablet by mouth three times daily as needed for muscle spasms Tizanidine 4 mg tablet Active 4 mg PO 3 TIMES DAILY NEEDED as needed for Muscle Spasm May 12, 2022 12:00am torsemide 20 mg oral tablet (20 sources) Loop Diuretic Start: 08-17-2018 End: 07-20-2022 take 1 tablet by mouth once daily torsemide (Demadex) 20 MG tablet Indications: Persistent atrial fibrillation (HCC) TAKE 1 TABLET BY MOUTH EVERY DAY 90 tablet 1 08/31/2022 Active ursodiol 300 mg oral capsule (20 sources) Bile Acid Start: 09-18-2018 End: 08-25-2022 take 1 capsule by mouth twice daily ursodiol (Actigall) 300 MG capsule TAKE 1 CAPSULE BY MOUTH TWICE DAILY 0 11/14/2018 Active Completed/Discontinued Medications Medication Drug Class(es) Dates Sig (Normalized) Sig (Original) Acetaminophen (6 sources) Start: 06-13-2022 End: 06-16-2022 take 1 tablet by mouth every six hours as needed for pain and fever acetaminophen (Tylenol) tablet 650 mg Start: 06-13-2022 End: 06-13-2022 acetaminophen (Tylenol) tabl et 650 mg Start: 02-15-2019 take 1000 mg by mout h every six hours, then take 4000 mg by mouth every twenty-four hours 1,000 mg, Oral, EVERY 6 HOURS, First dose on Wed02/15/19 at 1915 Maximum dose of acetaminophen is 4000 mg from all sources in 24 hours. Start: 09-15-2018 acetaminophen (TYLENOL) tablet 650 mg aspirin 81 mg oral tablet (20 sources) Platelet Aggregation Inhibitor, Nonsteroidal Anti-inflammatory Drug Start: 11-14-2018 End: 06-16-2022 ASPIRIN 81 PO 81 mg. 0 11/14/2018 06/16/2022 Discontinued (Stop taking at discharge) Start: 10-04-2018 take 81 mg by mouth once daily Aspirin Active 81 MG PO DAILY@0800 October 18, 2018 12:00am Start: 08-17-2018 take 81 mg by mouth once daily 81 mg, Oral, DAILY, First dose on Micheline 09/15/18 at 1400 End: 08-25-2022 take 1 tablet by mouth once daily aspirin 81 MG EC tablet Take 81 mg by mouth daily. 0 08/25/2022 Discontinued (Therapy completed) atorvastatin 80 mg oral tablet (20 sources) HMG-CoA Reductase Inhibitor Start: 10-04-2018 End: 08-18-2023 take 1 tablet by mouth once daily Atorvastatin 80 mg tablet Discontinued 80 mg PO DAILY April 04, 2023 1:00am July 23, 2023 1:48pm Start: 08-17-2018 take 80 mg by mouth once daily 80 mg, Oral, NIGHTLY, First dose on Micheline 09/15/18 at 2100 B [id number] TABS (1 source) End: 09-15-2018 take 1 tablet by mouth once daily B [id number] TABS Take 1 tablet by mouth daily 0 09/15/2018 Discontinued bisacodyl 5 mg delayed release oral tablet (1 source) Stimulant Laxative Start: 09-20-2018 End: 09-20-2018 bisacodyl (DULCOLAX) EC tablet 10 mg Calcium Carbonate / Cholecalciferol (1 source) Vitamin D End: 09-15-2018 take 1 tablet by mouth once daily Calcium Carbonate-Vitamin D (CALCIUM-D) 600-400 MG-UNIT TABS Take 1 tablet by mouth daily 0 09/15/2018 Discontinued calcium chloride 0.0014 meq/ml / potassium chloride 0.004 meq/ml / sodium chloride 0.103 meq/ml / sodium lactate 0.028 meq/ml injectable solution (2 sources) Start: 02-15-2019 End: 02-16-2019 lactated ringers infusion Start: 02-11-2019 End: 02-13-2019 lactated ringers infusion 0.4 ml enoxaparin sodium 100 mg/ml prefilled syringe (2 sources) Low Molecular Weight Heparin Start: 02-11-2019 End: 02-14-2019 inject 40 mg by subcutaneous injection once daily 40 mg, Subcutaneous, DAILY, First dose on 02/11/19 at 1245 Start: 09-17-2018 enoxaparin (LO VENOX) injection 40 mg 2 ml fentaNYL 0.05 mg/ml injection (1 source) Opioid Agonist Start: 02-11-2019 End: 02-11-2019 fentaNYL (SUBLIMAZE) injection 25 mcg ferrous sulfate 325 mg oral tablet (1 source) End: 09-15-2018 take 1 tablet by mouth once daily at breakfast ferrous sulfate 325 (65 Fe) MG tablet Take 325 mg by mouth daily (with breakfast) 0 09/15/2018 Discontinued 120 actuat fluticasone propionate 0.22 mg/actuat metered dose inhaler (20 sources) Corticosteroid Start: 06-13-2022 End: 06-16-2022 take 2 puff(s) by mouth twice daily 2 puff, Inhalation, 2 times daily, First dose on 06/13/22 at 2000 Rinse mouth with water after use to reduce aftertaste and incidence of candidiasis. Do not swallow. Start: 02-27-2022 End: 02-27-2023 take 2 puff(s) by inhalation in the morning fluticasone (Flovent) 220 MCG/ACT inhaler Indications: Eosinophilic esophagitis Inhale 2 puffs in the morning and 2 puffs in the evening. Rinse mouth with water after use to reduce aftertaste and incidence of candidiasis. Do not swallow.. 12 g 1 02/27/2022 08/25/2022 Discontinued (Therapy completed) gadobutrol (Gadavist) injection 5 mL (2 sources) Start: 12-20-2023 End: 12-20-2023 take 5 mL intravenously once as needed 5 mL, IntraVENous, IMG once PRN, contrast, Starting on 12/20/23 at 1536, For 1 dose 500 ml glucose 50 mg/ml / potassium chloride 0.02 meq/ml / sodium chloride 4.5 mg/ml injection (1 source) Start: 02-13-2019 End: 02-14-2019 dextrose 5 % and 0.45 % NaCl with KCl 20 mEq infusion indomethacin 50 mg rectal suppository (1 source) Nonsteroidal Anti-inflammatory Drug Start: 02-14-2019 End: 02-15-2019 indomethacin (INDOCIN) 50 MG suppository 100 mg iopamidol (ISOVUE-370) 76 % injection 75 mL (1 source) Start: 04-04-2019 End: 04-04-2019 iopamidol (ISOVUE-370) 76 % injection 75 mL iron sucrose (Venofer) 200 mg in sodium chloride 0.9 % 100 mL IVPB (2 sources) Start: 06-15-2022 End: 06-16-2022 iron sucrose (Venofer) 200 mg in sodium chloride 0.9 % 100 mL IVPB 1 ml ketorolac tromethamine 15 mg/ml cartridge (1 source) Nonsteroidal Anti-inflammatory Drug, Cyclooxygenase Inhibitor Start: 02-15-2019 End: 02-17-2019 15 mg, Intravenous, EVERY 6 HOURS, First dose on Wed02/15/19 at 1915, For 5 days Do not administer for more than 5 days. 10 ml lidocaine hydrochloride 10 mg/ml injection (2 sources) Antiarrhythmic, Amide Local Anesthetic Start: 06-04-2020 End: 06-04-2020 lidocaine PF 1 % injection Start: 11-09-2019 End: 11-09-2019 lidocaine PF 2 % injection 50 ml magnesium sulfate 40 mg/ml injection (2 sources) Start: 06-13-2022 End: 06-13-2022 magnesium sulfate IVPB premix 2,000 mg memantine hydrochloride 10 mg oral tablet (20 sources) Y-bhlvyd-L-aspart ate Receptor Antagonist Start: 05-12-2022 End: 07-23-2023 take 1 tablet by mouth once daily Memantine 10 mg tablet Discontinued 10 mg PO DAILY May 12, 2022 12:00am July 23, 2023 1:48pm Start: 11-07-2021 End: 06-16-2022 take 1 tablet by mouth twice daily memantine (Namenda) 5 MG tablet Take 5 mg by mouth 2 times daily. 0 11/07/2021 Active Start: 11-07-2021 End: 08-25-2022 take 1 tablet by mouth twice daily memantine (Namenda) 10 MG tablet Take 10 mg by mouth 2 times daily. 0 11/07/2021 08/25/2022 Discontinued (Therapy completed) 1 ml morphine sulfate 4 mg/ml injection (2 sources) Opioid Agonist Start: 02-11-2019 End: 02-15-2019 take 2 mg by mouth every four hours as needed for pain 2 mg, Intravenous, EVERY 4 HOURS PRN, Pain Severe (7-10), Starting 02/11/19 at 1227 If oral and IV narcotics ordered, use oral first and only use IV if oral is ineffective or cannot take oral. Do Not give oral and IV within 1 hour of each other unless specifically ordered. Start: 09-15-2018 morphine (PF) injection 2 mg ondansetron ODT (Zofran-ODT) disintegrating tablet 4 mg (2 sources) Start: 06-13-2022 End: 06-16-2022 take 1 tablet by mouth every eight hours as needed for nausea and vomiting ondansetron ODT (Zofran-ODT) disintegrating tablet 4 mg pantoprazole 40 mg delayed release oral tablet (5 sources) Proton Pump Inhibitor Start: 06-14-2022 End: 06-16-2022 take 40 mg by mouth once daily before breakfast 40 mg, Oral, Daily before breakfast, First dose on 06/14/22 at 0700 Do not crush, chew, or split. Start: 02-10-2019 take 40 mg by mouth once daily before breakfast 40 mg, Oral, DAILY BEFORE BREAKFAST, First dose on 02/12/19 at 0700 Do not crush or break. Substituted for Omeprazole (PRILOSEC). Start: 09-16-2018 pantoprazole ( PROTONIX) tablet 40 mg piperacillin 3000 mg / tazobactam 375 mg injection (2 sources) Penicillin-class Antibacterial, beta Lactamase Inhibitor Start: 02-11-2019 End: 02-15-2019 piperacillin-tazobactam (ZOSYN) 3.375 g in dextrose 50 mL IVPB extended infusion (premix) Start: 02-11-2019 End: 02-11-2019 piperacillin-tazobactam (ZOS YN) 4.5 g in dextrose 100 mL IVPB (premix) prednisoLONE acetate 10 mg/ml ophthalmic suspension (20 sources) Corticosteroid Start: 11-14-2018 End: 08-25-2022 prednisoLONE acetate (Pred-Forte) 1 % ophthalmic suspension Dose = 1 drop(s), Eyes, both, BID, # 10 mL, 0 Refill(s) 0 11/14/2018 08/25/2022 Discontinued (Therapy completed) 1000 ml sodium chloride 9 mg/ml injection (15 sources) Start: 06-13-2022 End: 06-16-2022 take 100 mL intravenously every hour 100 mL/hr, IntraVENous, Continuous, Starting on 06/13/22 at 1645 Start: 02-23-2022 End: 02-23-2022 sodium chloride 0.9 % infusi on Start: 02-23-2022 End: 02-23-2022 sodium chloride 0.9% (NS) fl ush 10 mL Start: 03-07-2019 0.9 % sodium c hloride infusion Start: 02-16-2019 End: 02-18-2019 0.9 % sodium chloride infusi on Start: 02-11-2019 10 mL, Intrave nous, EVERY 12 HOURS SCHEDULED (2 times per day), First dose on 02/11/19 at 2100 Start: 02-11-2019 take 10 mL intraveno usly once as needed 10 mL, Intravenous, PRN, Line Care, After every IV line use, Starting 02/11/19 at 1227 Start: 09-15-2018 0.9 % sodium c hloride infusion Start: 09-15-2018 sodium chlorid e flush 0.9 % injection 10 mL trospium chloride 20 mg oral tablet (2 sources) Cholinergic Muscarinic Antagonist Start: 06-13-2022 End: 06-16-2022 take 20 mg by mouth once daily 20 mg, Oral, Daily, First dose on 06/13/22 at 1645 Substituted for oxybutynin (DITROPAN); fesoterodine (TOVIAZ); darifenacin (ENABLEX); solifenacin (VESICARE); tolterodine IR (DETROL); tolterodine ER (DETROL LA). Problems Active Problems Problem Classification Problem Date Documented Da te Episodic/Chronic Abdominal hernia (7 sources) Hiatal hernia; Translations: [Diaphragmatic hernia without obstruction or gangrene] 02-11-2019 Episodic Abdominal pain (20 sources) Abdominal pain; Translations: [Unspecified abdominal pain] Onset: 9 09-15-2018 Episodic Acute bronchitis (1 source) Acute bronchitis; Translations: [Acute bronchitis, unspecified] 11-22-2023 Episodic Acute myocardial infarction (20 sources) Acute ST segment elevation myocardial infarction; Translations: [Myocardial infarction] Onset: 9 08-07-2018 Chronic Biliary tract disease (20 sources) Disorder of biliary tract; Translations: [Other specified diseases of biliary tract] Onset: 0 02-12-2019 Chronic Biliary tract disease (20 sources) Gallbladder calculus with acute cholecystitis and obstruction; Translations: [Cholecystitis] Onset: 0 02-12-2019 Episodic Cardiac dysrhythmias (20 sources) Persistent atrial fibrillation; Translations: [Paroxysmal atrial fibrillation] Onset: 9 08-07-2018 Chronic Coronary atherosclerosis and other heart disease (20 sources) Coronary arteriosclerosis in [place] artery; Translations: [Coronary atherosclerosis] Onset: 9 09-18-2018 Chronic Deficiency and other anemia (20 sources) Anemia; Translations: [Anemia, unspecified] Onset: 3 02-10-2019 Episodic Delirium, dementia, and amnestic and other cognitive disorders (20 sources) Primary degenerative dementia of the Alzheimer type, senile onset; Translations: [Alzheimer's disease with late onset] Onset: 3 Chronic Diabetes mellitus without complication (2 sources) Type 2 diabetes mellitus without complications; Translations: [Type 2 diabetes mellitus without complications] Onset: 5 Chronic Diseases of white blood cells (20 sources) Leukocytosis; Translations: [Elevated white blood cell count, unspecified] Onset: 9 08-07-2018 Chronic Disorders of lipid metabolism (20 sources) Dyslipidemia; Translations: [Hyperlipidemia, unspecified] Onset: 9 10-04-2018 Chronic E Codes: Fall (2 sources) Fall; Translations: [Unspecified fall, initial encounter] 04-04-2023 Episodic Esophageal disorders (20 sources) Obstruction of esophagus; Translations: [Esophageal obstruction] Onset: 3 02-23-2022 Chronic Essential hypertension (7 sources) Hypertensive disorder; Translations: [Essential (primary) hypertension] 02-10-2019 Chronic Genitourinary symptoms and ill-defined conditions (3 sources) Urinary incontinence; Translations: [Unspecified urinary incontinence] Onset: 4 05-11-2023 Chronic Immunizations and screening for infectious disease (6 sources) Contact with or exposure to other viral diseases; Translations: [Exposure to COVID-19 virus] 08-15-2021 Episodic Malaise and fatigue (10 sources) Tired; Translations: [Other fatigue] 06-01-2022 Episodic Nonspecific chest pain (7 sources) Atypical chest pain; Translations: [Other chest pain] 02-11-2019 Episodic Nutritional deficiencies (20 sources) Nutritional marasmus; Translations: [Unspecified severe protein-calorie malnutrition] Onset: 0 02-13-2019 Chronic Open wounds of extremities (2 sources) Laceration without foreign body of left upper arm, initial encounter; Translations: [Skin tear of left upper extremity] 04-04-2023 Episodic Other circulatory disease (6 sources) H/O: hypertension; Translations: [Personal history of other diseases of the circulatory system] 05-12-2022 Episodic Other circulatory disease (2 sources) Personal history of other diseases of the circulatory system; Translations: [Personal history of other diseases of circulatory system] 05-13-2022 Episodic Other circulatory disease (3 sources) Other specified symptoms and signs involving the circulatory and respiratory systems; Translations: [Other symptoms involving cardiovascular system] Episodic Other gastrointestinal disorders (20 sources) Malabsorption - iron; Translations: [Intestinal malabsorption, unspecified] Onset: 9 08-15-2018 Chronic Other gastrointestinal disorders (6 sources) History of stricture of esophagus; Translations: [Personal history of other diseases of the digestive system] 05-12-2022 Episodic Other gastrointestinal disorders (20 sources) Dysphagia; Translations: [Dysphagia, unspecified] Onset: 3 05-12-2022 Episodic Other gastrointestinal disorders (3 sources) Dysphagia, unspecified; Translations: [Dysphagia, unspecified] 05-13-2022 Episodic Other gastrointestinal disorders (2 sources) Personal history of other diseases of the digestive system; Translations: [Personal history of other diseases of digestive system] 05-13-2022 Episodic Other injuries and conditions due to external causes (1 source) Injury of head; Translations: [Unspecified injury of head, initial encounter] 04-04-2023 Episodic Other liver diseases (2 sources) Inflammatory disease of liver; Translations: [Inflammatory liver disease, unspecified] Chronic Other liver diseases (7 sources) Disease of liver; Translations: [Other specified diseases of liver] Onset: 4 12-20-2023 Chronic Other liver diseases (1 source) Other specified diseases of liver; Translations: [Other specified diseases of liver] Onset: 4 Chronic Other screening for suspected conditions (not mental disorders or infectious disease) (9 sources) Liver function tests abnormal; Translations: [Abnormal results of liver function studies] Onset: 4 Episodic Screening and history of mental health and substance abuse codes (5 sources) H/O: dementia; Translations: [Personal history of other mental and behavioral disorders] 06-01-2022 Episodic Superficial injury; contusion (2 sources) Contusion of face; Translations: [Contusion of other part of head, initial encounter] 04-04-2023 Episodic Thyroid disorders (20 sources) Non-toxic uninodular goiter; Translations: [Thyroid nodule] Onset: 0 10-25-2019 Chronic Unclassified (10 sources) Patient encounter status; Translations: [Encounter for long-term (current) use of antiplatelets/antithro mbotics] 02-12-2019 Unclassified (2 sources) Other persistent atrial fibrillation; Translations: [Other persistent atrial fibrillation (HCC)] Onset: 2 Unclassified (1 source) Cough, unspecified; Translations: [Cough, unspecified] Onset: 4 Viral infection (6 sources) Disease caused by 2019-nCoV; Translations: [COVID-19] 08-15-2021 Episodic Past or Other Problems Problem Classification Problem Date Documented Date Episodic/Chronic Acute posthemorrhagic anemia (20 sources) Acute posthemorrhagic anemia; Translations: [Acute posthemorrhagic anemia] Onset: 08-07-2018 08-07-2018 Episodic Coronary atherosclerosis and other heart disease (20 sources) History of placement of stent for coronary artery disease; Translations: [Stented coronary artery] Onset: 02-12-2019 02-12-2019 Episodic Deficiency and other anemia (20 sources) Iron deficiency anemia; Translations: [Iron deficiency anemia, unspecified] Onset: 09-21-2018 09-21-2018 Episodic Diabetes mellitus without complication (13 sources) Hyperglycemia; Translations: [Hyperglycemia, unspecified] Onset: 08-07-2018 Resolved: 08-08-2018 08-08-2018 Episodic Fluid and electrolyte disorders (9 sources) Mild dehydration; Translations: [Dehydration] Onset: 03-17-2024 06-01-2022 Episodic Other aftercare (20 sources) Patient encounter status; Translations: [correction (current) use of antithrombotics/antip latelets] Onset: 02-12-2019 02-12-2019 Episodic Other aftercare (6 sources) Long-term current use of drug therapy; Translations: [correction (current) use of antithrombotics/antip latelets] Onset: 02-12-2019 11-23-2021 Episodic Other lower respiratory disease (13 sources) Dyspnea; Translations: [Shortness of breath] Onset: 08-07-2018 Resolved: 08-08-2018 08-08-2018 Episodic Residual codes; unclassified (2 sources) Altered mental status, unspecified; Translations: [Altered mental status, unspecified] Onset: 03-17-2024 Episodic Spondylosis; intervertebral disc disorders; other back problems (3 sources) Backache; Translations: [Dorsalgia, unspecified] Onset: 05-11-2023 05-11-2023 Episodic Unclassified (6 sources) h/o throat surgery 09-08-2021 Comment on above: enlarged esophagous Results Test Name Value Interpretation Reference Range Facility Absolute lymphocyte countOrd ered By: Anabel Duvall on 06-12-2024 Lymphocytes Auto (Unsp spec) [#/Vol] 1.40 10*3/uL 0.83-4.51 [facility] Absolute neutrophil countOrd ered By: Anabel Duvall on 06-12-2024 Neutrophils (Bld) [#/Vol] 2.6 10*3/uL 2.0-7.7 [facility] Anion gap in Serum or Plasma Ordered By: Anabel Duvall on 06-12-2024 Anion gap [Moles/Vol] 10 mmol/L 5-15 [facility] Automated lymphocyte count a s percentage of total leukocytesOrdered By: Anabel Duvall on 06-12-2024 Lymphocytes/100 WBC Auto (Unsp spec) 30.2 % 19-41 [facility] BUN/creatinine ratioOrdered By: Anabel Duvall on 06-12-2024 Urea nitrogen/Creatinine [Mass ratio] 22.8 mg/mg High 10-20 [facility] Basophil percentageOrdered B y: Anabel Duvall on 06-12-2024 Basophils/100 WBC (Bld) 1.1 % High 0-1 [facility] Bilirubin, totalOrdered By: Anabel Duvall on 06-12-2024 Bilirubin [Mass/Vol] 0.40 mg/dL 0.00-1.30 [facility] Calculated very low density lipoprotein (VLDL) cholesterol measurementOrdered By: Anabel Duvall on 06-12-2024 Calculated very low density lipoprotein (VLDL) cholesterol measurement 15 mg/dL 5-40 [facility] Carbon dioxide, total [Moles /volume] in Central venous bloodOrdered By: Anabel Duvall on 06-12-2024 CO2 [Moles/Vol] 25.5 mmol/L 21.0-32.0 [facility] Chloride assayOrdered By: Luna Duvall on 06-12-2024 Chloride [Moles/Vol] 103 mmol/L 98-108 [facility] Eosinophil percentageOrdered By: Anabel Duvall on 06-12-2024 Eosinophils/100 WBC (Bld) 5.0 % 0-5 [facility] Erythrocyte distribution wid th ratioOrdered By: Anabel Duvall on 06-12-2024 Erythrocyte distribution width (RBC) [Ratio] 13.8 % 11.6-14.6 [facility] Erythrocyte distribution wid th standard deviationOrdered By: Anabel Duvall on 06-12-2024 Erythrocyte distribution width (RBC) [Ratio] 43.5 fl 35.1-43.9 [facility] Glomerular filtration rate ( GFR) estimation/1.73 sq m using serum, plasma, or whole bOrdered By: Anabel Duvall on 06-12-2024 GFR/1.73 sq M.predicted among non-blacks MDRD (S/P/Bld) [Vol rate/Area] 62 mL/min/{1.73_m2} >60 [facility] Comment on above: mL/min/1.73m2 CKD-EP I Creatinine Equation (2020) Hematocrit Auto (Bld) [Volum e fraction]Ordered By: Anabel Duvall on 06-12-2024 Hematocrit (Bld) [Volume fraction] 30.3 % Low 37-47 [facility] Hemoglobin A1c percentageOrd ered By: Anabel Duvall on 06-12-2024 HbA1c (Bld) [Mass fraction] 6.2 % High <5.7 [facility] Comment on above: Normal < 5.7 % Predi abetic 5.7 - 6.4 % Diabetic >or= 6.5 % Please note range changes. Hemoglobin measurementOrdere d By: Anabel Duvall on 06-12-2024 Hemoglobin (Bld) [Mass/Vol] 9.9 g/dL Low 12.0-15.0 [facility] Immature granulocytes/100 WB C Auto (Bld)Ordered By: Anabel Duvall on 06-12-2024 Immature granulocytes/100 WBC (Bld) 0.200 % 0.0-0.9 [facility] Comment on above: IG% - Immature Granu locytes (promyelocytes, myelocytes and metamyelocytes) > 1% indicates that a LEFT SHIFT is Present. LDL calc ser/plasOrdered By: Anabel Duvall on 06-12-2024 Cholesterol in LDL [Mass/Vol] 85 mg/dL [facility] Comment on above: Nuprosvdwq=639-139 m g/dL & Higher Dajh=140 mg/dL or greater Laboratory - Chemistry and C hemistry - challengeOrdered By: Anabel Duvall on 06-12-2024 AST [Catalytic activity/Vol] 48 U/L High <32 [facility] MCV (mean corpuscular volume ) determinationOrdered By: Anabel Duvall on 06-12-2024 MCV (RBC) [Entitic vol] 88.1 fL 81-99 [facility] Mean corpuscular hemoglobin (MCH) determinationOrdered By: Anabel Duvall on 06-12-2024 MCH (RBC) [Entitic mass] 28.8 pg 27.0-32.0 [facility] Mean corpuscular hemoglobin concentration (MCHC) determinationOrdered By: Anabel Duvall 06-12-2024 MCHC (RBC) [Mass/Vol] 32.7 g/dL 32-36 [facility] Mean platelet volume determi nationOrdered By: Anabel Duvall on 06-12-2024 Platelet mean volume (Bld) [Entitic vol] 12.3 fL High 6.2-12.0 [facility] Monocyte percentageOrdered B y: Anabel Duvall on 06-12-2024 Monocytes/100 WBC (Bld) 7.8 % 0-10 [facility] Neutrophil percentageOrdered By: Anabel Duvall on 06-12-2024 Neutrophils/100 WBC (Bld) 55.7 % 47-70 [facility] Nucleated red blood cell per centageOrdered By: Anabel Duvall on 06-12-2024 Nucleated RBC/100 WBC (Bld) [Ratio] 0 % 0-5 [facility] Platelet countOrdered By: Luna Duvall on 06-12-2024 Platelets (Bld) [#/Vol] 163 10*3/uL 150-450 [facility] Potassium measurement (mass/ volume)Ordered By: Anabel Duvall on 06-12-2024 Potassium (Unsp spec) [Mass/Vol] 3.7 mmol/L 3.3-5.1 [facility] RBC Auto (Bld) [#/Vol]Ordere d By: Anabel Duvall on 06-12-2024 RBC (Bld) [#/Vol] 3.44 10*6/uL Low 4.2-5.4 [facility] Screening total cholesterol/ high density lipoprotein (HDL) cholesterol ratioOrdered By: Anabel Duvall on 06-12-2024 Cholesterol.total/Chol esterol in HDL [Mass ratio] 2.87 {ratio} [facility] Serum creatinine measurement (mass/volume)Ordered By: Anabel Duvall on 06-12-2024 Creatinine [Mass/Vol] 0.92 mg/dL 0.70-1.20 [facility] Serum globulin measurementOr dered By: Anabel Duvall on 06-12-2024 Globulin (S) [Mass/Vol] 4.1 g/dL 2.2-4.2 [facility] Serum glucose measurement (m ass/volume)Ordered By: Anabel Duvall on 06-12-2024 Glucose [Mass/Vol] 98 mg/dL 70-99 [facility] Serum or plasma alanine gtz otransferase (ALT) measurementOrdered By: Albarojono Maddengracejuana on 06-12-2024 ALT [Catalytic activity/Vol] 28 U/L <35 [facility] Serum or plasma albumin blanco urement (mass/volume)Ordered By: Albarojono Maddengracejuana 06-12-2024 Albumin [Mass/Vol] 3.2 g/dL Low 3.4-4.8 [facility] Serum or plasma albumin/glob ulin mass ratioOrdered By: Lunajulijono Maddenjuana 06-12-2024 Albumin/Globulin [Mass ratio] 0.8 {ratio} Low 0.9-2.4 [facility] Serum or plasma alkaline javier sphatase measurementOrdered By: Albarojono Maddengracejuana 06-12-2024 ALP [Catalytic activity/Vol] 323 U/L High 35-104 [facility] Serum or plasma calcium blanco urement (mass/volume)Ordered By: Albarojono Maddengraecjuana 06-12-2024 Calcium [Mass/Vol] 9.1 mg/dL 7.6-11.0 [facility] Serum or plasma cholesterol in HDL measurement (mass/volume)Ordered By: Albarojono Maddengracejuana 06-12-2024 Cholesterol in HDL [Mass/Vol] 53 mg/dL >40 [facility] Comment on above: National Cholesterol Education Program (NCEP) guidelines:<40 mg/dL: Low HDL-cholesterol (major risk factor for CHD)>= 60 mg/dL: High HDL-cholesterol (negative risk factor for CHD)HDL-cholesterol is affected by a number of factors, e.g. smoking, exercise, hormones, sex and age. Serum or plasma cholesterol measurement (mass/volume)Ordered By: Albarojono Maddengracejuana 06-12-2024 Cholesterol [Mass/Vol] 153 mg/dL <201 [facility] Comment on above: Cholesterol level, D esirable <200 mg/dLBorderline high cholesterol 200-239 mg/dLHigh cholesterol >=240 mg/dLRecommendations of the NCEP Adult Treatment Panel for the following risk-cutoff thresholds for the [place] population. Serum or plasma urea nitroge n measurement (mass/volume)Ordered By: Anabel Chanogracejuana on 06-12-2024 Urea nitrogen [Mass/Vol] 21 mg/dL High 4-19 [facility] Sodium levelOrdered By: Chino Martinezjuana on 06-12-2024 Sodium [Moles/Vol] 139 mmol/L 133-145 [facility] Total proteinOrdered By: Shan Duvall on 06-12-2024 Protein [Mass/Vol] 7.4 g/dL 5.9-8.4 [facility] Triglycerides measurementOrd ered By: Anabel Chanolito on 06-12-2024 Triglyceride [Mass/Vol] 75 mg/dL <199 [facility] Comment on above: The drugs N-Acetylcy steine and Metamizole may falsely depress this assay. Normal range: <150 mg/dLBorderline High: 150-199 mg/dLHigh: 200-499 mg/dLVery High: >500 mg/dL White blood cell (WBC) count Ordered By: Anabel Chanogracejuana on 06-12-2024 WBC (Bld) [#/Vol] 4.6 10*3/uL 4.4-11.0 [facility] Absolute lymphocyte countOrd ered By: Anabel Chanogracejuana on 03-16-2024 Lymphocytes Auto (Unsp spec) [#/Vol] 1.69 10*3/uL 0.83-4.51 [facility] Absolute neutrophil countOrd ered By: Anabel Martinezjuana on 03-16-2024 Neutrophils (Bld) [#/Vol] 2.5 10*3/uL 2.0-7.7 [facility] Albumin to globulin ratioOrd ered By: Anabel Duvall on 03-16-2024 Albumin/Globulin [Mass ratio] 0.5 {ratio} Low 0.9-2.4 [facility] Automated lymphocyte count a s percentage of total leukocytesOrdered By: Albarojono Maddengracejuana on 03-16-2024 Lymphocytes/100 WBC Auto (Unsp spec) 35.0 % 19-41 [facility] Basophil percentageOrdered B y: Efnav Duvall on 03-16-2024 Basophils/100 WBC (Bld) 0.8 % 0-1 [facility] Bilirubin, totalOrdered By: Anabel Duvall on 03-16-2024 Bilirubin [Mass/Vol] 0.30 mg/dL 0.20-1.00 [facility] Comment on above: For patients on eltr ombopag therapy, use of Dimension [place] TBIL is not recommended. Blood urea nitrogen (BUN)/cr eatinine ratioOrdered By: Anabel Duvall on 03-16-2024 Urea nitrogen/Creatinine [Mass ratio] 25.9 mg/mg High 10-20 [facility] Carbon dioxide measurementOr dered By: Anbael Duvall on 03-16-2024 CO2 [Moles/Vol] 29.0 mmol/L 21.0-32.0 [facility] Chloride measurementOrdered By: Anabel Duvall on 03-16-2024 Chloride [Moles/Vol] 104 mmol/L 98-107 [facility] Eosinophil percentageOrdered By: Anabel Duvall on 03-16-2024 Eosinophils/100 WBC (Bld) 3.3 % 0-5 [facility] Erythrocyte distribution wid th ratioOrdered By: Anabel Duvall on 03-16-2024 Erythrocyte distribution width (RBC) [Ratio] 13.3 % 11.6-14.6 [facility] Erythrocyte distribution wid th standard deviationOrdered By: Anabel Duvall on 03-16-2024 Erythrocyte distribution width (RBC) [Ratio] 45.3 fl High 35.1-43.9 [facility] Glomerular filtration rate ( GFR) estimationOrdered By: Anabel Duvall on 03-16-2024 GFR/1.73 sq M.predicted among non-blacks MDRD (S/P/Bld) [Vol rate/Area] 62 mL/min/{1.73_m2} >60 [facility] Comment on above: Non- GFR Calc Glucose measurementOrdered B y: Anabel Duvall on 03-16-2024 Glucose [Mass/Vol] 104 mg/dL 74-106 [facility] Comment on above: Fasting Glucose resu lt from 100 to 125 mg/dL suggests IMPAIRED HOMEOSTASIS per A.D.A. criteria. Hematocrit Auto (Bld) [Volum e fraction]Ordered By: Anabel Duvall on 03-16-2024 Hematocrit (Bld) [Volume fraction] 33.5 % Low 37-47 [facility] Hemoglobin A1c percentageOrd ered By: Anabel Duvall on 03-16-2024 HbA1c (Bld) [Mass fraction] 4.8 % 3.8-5.6 [facility] Comment on above: Normal < 5.7 % Predi abetic 5.7 - 6.4 % Diabetic >or= 6.5 % Please note range changes. Hemoglobin measurementOrdere d By: Anabel Duvall on 03-16-2024 Hemoglobin (Bld) [Mass/Vol] 10.6 g/dL Low 12.0-15.0 [facility] Immature granulocytes/100 WB C Auto (Bld)Ordered By: Anabel Duvall on 03-16-2024 Immature granulocytes/100 WBC (Bld) 0.200 % 0.0-0.9 [facility] Comment on above: IG% - Immature Granu locytes (promyelocytes, myelocytes and metamyelocytes) > 1% indicates that a LEFT SHIFT is Present. Laboratory - Chemistry and C hemistry - challengeOrdered By: Anabel Duvall on 03-16-2024 AST [Catalytic activity/Vol] 63 U/L High 15-37 [facility] MCV (mean corpuscular volume ) determinationOrdered By: Anabel Duvall on 03-16-2024 MCV (RBC) [Entitic vol] 92.0 fL 81-99 [facility] Mean corpuscular hemoglobin (MCH) determinationOrdered By: Anabel Duvall on 03-16-2024 MCH (RBC) [Entitic mass] 29.1 pg 27.0-32.0 [facility] Mean corpuscular hemoglobin concentration (MCHC) determinationOrdered By: Anabel Duvall on 03-16-2024 MCHC (RBC) [Mass/Vol] 31.6 g/dL Low 32-36 [facility] Mean platelet volume determi nationOrdered By: Anabel Duvall on 03-16-2024 Platelet mean volume (Bld) [Entitic vol] 12.6 fL High 6.2-12.0 [facility] Monocyte percentageOrdered B y: Anabel Duvall on 03-16-2024 Monocytes/100 WBC (Bld) 9.1 % 0-10 [facility] Neutrophil percentageOrdered By: Anabel Duvall on 03-16-2024 Neutrophils/100 WBC (Bld) 51.6 % 47-70 [facility] Nucleated red blood cell per centageOrdered By: Anabel Duvall on 03-16-2024 Nucleated RBC/100 WBC (Bld) [Ratio] 0 % 0-5 [facility] Platelet countOrdered By: Luna Duvall on 03-16-2024 Platelets (Bld) [#/Vol] 183 10*3/uL 150-450 [facility] Potassium measurementOrdered By: Anabel Duvall on 03-16-2024 Potassium [Moles/Vol] 4.2 mmol/L 3.5-5.1 [facility] RBC Auto (Bld) [#/Vol]Ordere d By: Anabel Duvall on 03-16-2024 RBC (Bld) [#/Vol] 3.64 10*6/uL Low 4.2-5.4 [facility] Serum anion gap measurementO rdered By: Anabel Duvall on 03-16-2024 Anion gap [Moles/Vol] 6 mmol/L 5-15 [facility] Serum globulin measurementOr dered By: Anabel Duvall on 03-16-2024 Globulin (S) [Mass/Vol] 5.3 g/dL High 2.2-4.2 [facility] Serum or plasma alanine gtz otransferase (ALT) measurementOrdered By: Anabel Duvall on 03-16-2024 ALT [Catalytic activity/Vol] 51 U/L 13-56 [facility] Serum or plasma albumin blanco urement (mass/volume)Ordered By: Anabel Duvall on 03-16-2024 Albumin [Mass/Vol] 2.9 g/dL Low 3.2-5.0 [facility] Serum or plasma alkaline javier sphatase measurementOrdered By: Anabel Duvall on 03-16-2024 ALP [Catalytic activity/Vol] 290 U/L High 45-117 [facility] Serum or plasma calcium blanco urement (mass/volume)Ordered By: Anabel Duvall on 03-16-2024 Calcium [Mass/Vol] 9.6 mg/dL 8.5-10.1 [facility] Serum or plasma creatinine m easurement (mass/volume)Ordered By: Anabel Duvall on 03-16-2024 Creatinine [Mass/Vol] 0.93 mg/dL 0.55-1.02 [facility] Comment on above: The validity of the calculated GFR & GFRAA in patients over 70 years has not been determined. Clinical correlation is essential. Serum or plasma urea nitroge n measurement (mass/volume)Ordered By: Anabel Duvall on 03-16-2024 Urea nitrogen [Mass/Vol] 24 mg/dL High 7-18 [facility] Sodium levelOrdered By: Chino Duvall on 03-16-2024 Sodium [Moles/Vol] 139 mmol/L 136-145 [facility] Total proteinOrdered By: Shan Duvall on 03-16-2024 Protein [Mass/Vol] 8.2 g/dL 6.4-8.2 [facility] White blood cell (WBC) count Ordered By: Anabel Duvall on 03-16-2024 WBC (Bld) [#/Vol] 4.8 10*3/uL 4.4-11.0 [facility] MR Abdomen WO and W contrast Verito 12-24-2023 1. LI-RADS 3 lesion in segment 8 measuring 1.3 cm. Recommend follow-up imaging or tissue sampling if indicated. 2. LI-RADS 3 lesion in segment 6 measuring 1.0 cm. Recommend follow-up imaging or tissue sampling if indicated. 3. Right lung lesion, incompletely evaluated but worrisome for neoplasm. Recommend CT chest with contrast. 4. Cirrhotic appearing liver. Splenomegaly due to portal hypertension. 5. Nonspecific shantal hepatic lymphadenopathy 6. Limited due to patient motion. CRITICAL TEST RESULT COMMUNICATION: Notification of these findings was made to MITA MORTON via [employer] Secure Chat on 12/24/2023 9:32 AM EST. Report Dictated on Electronically Signed By: Jovi Davis MD Electronically Signed Date/Time: 12/24/2023 9:33 AM EST [employer] [facility] Patient Name: PREMA VILLALPANDO : 1940 Exam Date/Time: 12/20/2023 16:34 Procedure: MR ABDOMEN W AND WO CONTRAST Ordering Provider: MORTON LISA Reason For Exam: K76.78 MRI ABDOMEN WITHOUT AND WITH CONTRAST (WITH ATTENTION TO THE LIVER) EXAM DATE AND TIME: 12/20/2023 4:34 PM EST INDICATION: 83 years Female with liver disease, liver lesion on ultrasound TECHNIQUE: Multiplanar multisequence MR images of the abdomen were performed with attention to the liver, including diffusion-weighted images and imaging following the intravenous administration of 5 mL Gadavist contrast. COMPARISON: 11/11/2023, 02/11/2019 FINDINGS: Limited due to patient motion. Liver: The liver is normal in size but diffusely heterogeneous with a nodular contour There is no drop in signal on in-phase or opposed-phase images to suggest fat or iron deposition. In segment eight there is a lesion which is not well seen on the T2-weighted images but hypointense on the T1-weighted images. There is hypoenhancement compared to the background liver parenchyma (series 14 image 30) without evidence of arterial phase hyperenhancement, LI-RADS 3. This lesion measures approximately 1.4 x 1.3 cm. In segment six there is a 1.0 x 0.7 cm lesion with arterial phase enhancement but isointense enhancement on the portal venous and more delayed postcontrast images and without capsular enhancement, LI-RADS 3 (series 1102 image 39). Biliary tree: Status post cholecystectomy. No biliary dilatation. Spleen: Enlarged Adrenals:Normal Pancreas: Homogeneous enhancement without mass or peripancreatic fluid. No pancreatic duct dilation. Kidneys: Symmetric contrast enhancement without mass or hydronephrosis Lymph nodes: There is shantal hepatic lymphadenopathy Vasculature: The aorta and major abdominal arterial vessels are unremarkable. Superior mesenteric vein, splenic vein and the main, right and left portal veins are patent. No significant collaterals or esophageal varices. Visualized Osseous structures: Normal Other: Large hiatal hernia. There is a round soft tissue lesion in the right lung, incompletely assessed on this study but measures at least 3.4 cm [facility] Jovi Davis MD - 12/24/2023 Patient Name: PREMA VILLALPANDO : 1940 Exam Date/Time: 12/20/2023 16:34 Procedure: MR ABDOMEN W AND WO CONTRAST Ordering Provider: MORTON LISA Reason For Exam: K76.78 MRI ABDOMEN WITHOUT AND WITH CONTRAST (WITH ATTENTION TO THE LIVER) EXAM DATE AND TIME: 12/20/2023 4:34 PM EST INDICATION: 83 years Female with liver disease, liver lesion on ultrasound TECHNIQUE: Multiplanar multisequence MR images of the abdomen were performed with attention to the liver, including diffusion-weighted images and imaging following the intravenous administration of 5 mL Gadavist contrast. COMPARISON: 11/11/2023, 02/11/2019 FINDINGS: Limited due to patient motion. Liver: The liver is normal in size but diffusely heterogeneous with a nodular contour There is no drop in signal on in-phase or opposed-phase images to suggest fat or iron deposition. In segment eight there is a lesion which is not well seen on the T2-weighted images but hypointense on the T1-weighted images. There is hypoenhancement compared to the background liver parenchyma (series 14 image 30) without evidence of arterial phase hyperenhancement, LI-RADS 3. This lesion measures approximately 1.4 x 1.3 cm. In segment six there is a 1.0 x 0.7 cm lesion with arterial phase enhancement but isointense enhancement on the portal venous and more delayed postcontrast images and without capsular enhancement, LI-RADS 3 (series 1102 image 39). Biliary tree: Status post cholecystectomy. No biliary dilatation. Spleen: Enlarged Adrenals:Normal Pancreas: Homogeneous enhancement without mass or peripancreatic fluid. No pancreatic duct dilation. Kidneys: Symmetric contrast enhancement without mass or hydronephrosis Lymph nodes: There is shantal hepatic lymphadenopathy Vasculature: The aorta and major abdominal arterial vessels are unremarkable. Superior mesenteric vein, splenic vein and the main, right and left portal veins are patent. No significant collaterals or esophageal varices. Visualized Osseous structures: Normal Other: Large hiatal hernia. There is a round soft tissue lesion in the right lung, incompletely assessed on this study but measures at least 3.4 cm IMPRESSION: 1. LI-RADS 3 lesion in segment 8 measuring 1.3 cm. Recommend follow-up imaging or tissue sampling if indicated. 2. LI-RADS 3 lesion in segment 6 measuring 1.0 cm. Recommend follow-up imaging or tissue sampling if indicated. 3. Right lung lesion, incompletely evaluated but worrisome for neoplasm. Recommend CT chest with contrast. 4. Cirrhotic appearing liver. Splenomegaly due to portal hypertension. 5. Nonspecific shantal hepatic lymphadenopathy 6. Limited due to patient motion. CRITICAL TEST RESULT COMMUNICATION: Notification of these findings was made to MITA MORTON via [employer] Secure Chat on 12/24/2023 9:32 AM EST. Report Dictated on Electronically Signed By: Jovi Davis MD Electronically Signed Date/Time: 12/24/2023 9:33 AM EST [facility]) MR Abdomen WO and W contrast IVOrdered By: Jovi Davis on 12-24-2023 [facility] Work Phone: MR Abdomen WO and W contrast Verito 12-20-2023 Radiology Study observation (narrative) [facility] Chest PA and Lateralon 11-21 Chest PA and Lateral [facility] Imaging Services [address] [place] [address] [id number] Chest PA and Lateral MR#: [id number] Acct: [id number] Name: PREMA VILLALPANDO Rep #: [id number] : 1940 F 83 From: Barak Cheema MD PCP: Mita Morton DO Status: REG CLI Study: Chest PA and Lateral Date of Exam: 11/22/23 Exam# [id number] Ordering Dr: Erich Hernandez PA PA [id number] STUDY: X-RAY CHEST REASON FOR EXAM: Female, 83 years old. cough TECHNIQUE: PA and lateral COMPARISON: June 01, 2022 FINDINGS: The lungs are clear and expanded. There is no demonstrated pleural abnormality. Normal size heart. Normal mediastinum and tim. Normal visualized pulmonary arteries. Mildly calcified aortic arch and descending thoracic aorta. Normal visualized thoracic spine. Normal visualized ribs, clavicles, and shoulders. Large hiatal hernia with air-fluid level. There is no demonstrated abnormality of the visualized soft tissue structures of the upper abdomen. RAD/Chest PA and Lateral IMPRESSION: No acute cardiopulmonary pathology. Incidental finding of large hiatal hernia with air-fluid level Electronically Signed: Barak Cheema MD at 18:56 EDT Reading Location ID and State: [facility] / [place] Tel , Service support , CC: Mita Morton DO; MACK Abbott De[employer] Cr[employer] Boat: Signed Normal [facility] Urgent Care Visit Reporton 1 Urgent Care Visit Report [facility] [address], [address] [place] [address] OFFICE VISIT Date of Service: 11/22/23 MR#: [id number] Acct: [id number] Name: PREMA VILLALPANDO Rep #: [id number] : 1940 Provider: MACK Abbott Age/Sex: 83/F Location: [facility] Status: Signed Intake Vital Signs 07/30/23 06:06 11/22/23 16:39 Height 4 ft 11 in 4 ft 11 in Weight: 99 lb 8 oz BMI 20.0 BP 100/60 Position Sitting Pulse 69 Temp 99.8 F H Temp Source Temporal Pulse Oximetry (%) 97 Oxygen Delivery Method room air Intake Visit Reasons: COUGH/CHEST CONGESTION/CONCERN FOR PHEUMONIA Accompanied by: Daughter Allergies ticagrelor (From Brilinta) Allergy (Verified 11/22/23 16:38) Shortness of breath Medications ???Medication ???Instructions ???Recorded ???Confirmed ???Type sertraline 50 mg tablet 50 mg PO DAILY 10/18/18 11/22/23 History torsemide 20 mg tablet 20 mg PO DAILY 10/18/18 11/22/23 History metformin 500 mg tablet 500 mg PO BID 05/12/22 11/22/23 History metoprolol tartrate 25 mg tablet 12.5 mg PO DAILY 05/12/22 11/22/23 History tizanidine 4 mg tablet 4 mg PO TID PRN PRN Muscle Spasm 05/12/22 11/22/23 History omeprazole 40 mg capsule,delayed 40 mg PO DAILY 04/04/23 11/22/23 History release rivastigmine tartrate 3 mg capsule 3 mg PO BID 04/04/23 11/22/23 History oxybutynin chloride 5 mg tablet 5 mg PO BID 07/23/23 11/22/23 History mirtazapine 15 mg tablet 15 mg PO QHS 07/27/23 11/22/23 History amoxicillin 875 mg-potassium 1 tab PO BID #20 tabs 11/22/23 11/22/23 Rx clavulanate 125 mg tablet quetiapine 25 mg tablet 12.5 mg PO QHS 11/22/23 11/22/23 History Have you fallen in the past year?: Yes Nurse's Note: Patient has a wet cough for a couple days. Patient has no other symptoms. Patient daughter did notice some bilateral swelling in her legs today. [facility] Medical History (Updated 11/22/23 @ 17:47 by Erich GIRON, PA) Acute bronchitis, unspecified Wears glasses Wears dentures Wears partial dentures Bladder disease Low iron Back pain Hypertension Difficulty swallowing History of hiatal hernia Gastric reflux Non-smoker Leg cramps Cardiology follow-up encounter History of CHF (congestive heart failure) History of heart attack Wears hearing aid in both ears Diabetes Dementia Dyslipidemia Iron deficiency anemia, unspecified Paroxysmal atrial fibrillation Atherosclerotic heart disease of [place] coronary artery without angina pectoris Persistent atrial fibrillation Gallstone of bile duct with gallbladder inflammation h/o throat surgery Hyperlipidemia Anemia Surgical History (Updated 07/27/23 @ 09:35 by Riana Sandy) History of esophagogastroduodenoscop y (EGD) Hx of partial thyroidectomy History of esophagogastroduodenoscop y (EGD) H/O colonoscopy H/O eye surgery H/O heart artery stent Family History Other no pertinent family medical hsitory Social History Smoking Status: Never smoker HPI HPI Details: PREMA VILLALPANDO, is a 83 F who presents to the office today for initial evaluation approximately 4 to 5-day history of cough, with daughter being particularly some concern due to her continued weight loss noting she is lost another 4 to 5 pounds over the course the last month and a half or so. No complaints of fever, chills, sweats, lightheadedness/dizziness , nausea/vomiting. No complaints of chest pain or shortness of breath or dyspnea on exertion, though daughter notes with patient's history of dementia she is a poor historian. Requesting POC screening for COVID-19 and influenza. No close contacts with similar complaints. No other associated symptoms and no other alleviating/aggravating factors. ROS Const Constitutional: No other (As above) Exam Const General: cooperative, healthy appearing and no acute distress Orientation: alert and awake [facility] Head: normal to inspection Ears: hearing grossly normal bilaterally, external ears normal, TM's normal bilaterally and EAC's normal Nose: external nose normal, nares normal, septum normal and no nasal discharge Eyes General: appearance normal, both eyes and all related structures Neck Neck: normal visual inspection, no lymphadenopathy, no meningeal signs and supple Chest Chest palpation inspection: normal inspection of the chest Resp Effort Inspection: normal respiratory effort and able to speak in complete sentences Auscultation: Bilateral: Clear to Auscultation Cardio Palpation: normal PMI Rate: regular rate Rhythm: regular rhythm Heart Sounds: S1 normal, S2 normal, no gallops, no murmurs and no rubs Pulses: radial pulses present GI Inspection: normal to inspection (more content not included)... Normal [facility] US ABDOMEN LIMITEDon 024 US ABDOMEN LIMITED Patient Name: PREMA VILLALPANDO : 1940 Exam Date/Time: 11/11/2023 09:18 Procedure: US ABDOMEN LIMITED Ordering Provider: MORTON LISA Reason For Exam: R79.89 ULTRASOUND ABDOMEN LIMITED CLINICAL INDICATION: Elevated liver function tests TECHNIQUE: Ultrasound of the right upper quadrant COMPARISON: 10/28/2022 FINDINGS: Pancreas: The visualized portions of the pancreatic head and body are unremarkable. The remainder of the pancreas is obscured by bowel gas Liver: Heterogeneous and echogenic with a mildly nodular contour. The liver is not enlarged. Hypoechoic right hepatic lobe lesion measuring 1.4 x 1.3 x 1.1 cm. Gallbladder: Surgically absent. Bile ducts: No intrahepatic and extrahepatic biliary dilatation Common bile duct: 5 mm Right kidney: Normal size measuring 10.2 cm. Normal parenchymal echogenicity without solid mass or hydronephrosis. Ascites: Trace perihepatic ascites IMPRESSION: 1. Heterogeneous and echogenic liver suggesting hepatic steatosis or other hepatocellular disease. The liver demonstrates a nodular contour suggestive of cirrhosis. 2. Hypoechoic right hepatic lobe lesion. This could represent a cyst with debris but other lesions are not excluded; recommend MRI with contrast for further evaluation. 3. Trace perihepatic ascites. Report Dictated on Electronically Signed By: Jovi Davis MD Electronically Signed Date/Time: 11/12/2023 7:58 AM EDT [facility] US Abdomen limitedon 024 1. Heterogeneous and echogenic liver suggesting hepatic steatosis or other hepatocellular disease. The liver demonstrates a nodular contour suggestive of cirrhosis. 2. Hypoechoic right hepatic lobe lesion. This could represent a cyst with debris but other lesions are not excluded; recommend MRI with contrast for further evaluation. 3. Trace perihepatic ascites. Report Dictated on Electronically Signed By: Jovi Davis MD Electronically Signed Date/Time: 11/12/2023 7:58 AM EDT [facility] Name[facility] 1940 [id number] Exam Date/Time: 11/11/2023 09:18 Procedure: US ABDOMEN LIMITED Ordering Provider: MORTON LISA Reason For Exam: R79.89 ULTRASOUND ABDOMEN LIMITED CLINICAL INDICATION: Elevated liver function tests TECHNIQUE: Ultrasound of the right upper quadrant COMPARISON: 10/28/2022 FINDINGS: Pancreas: The visualized portions of the pancreatic head and body are unremarkable. The remainder of the pancreas is obscured by bowel gas Liver: Heterogeneous and echogenic with a mildly nodular contour. The liver is not enlarged. Hypoechoic right hepatic lobe lesion measuring 1.4 x 1.3 x 1.1 cm. Gallbladder: Surgically absent. Bile ducts: No intrahepatic and extrahepatic biliary dilatation Common bile duct: 5 mm Right kidney: Normal size measuring 10.2 cm. Normal parenchymal echogenicity without solid mass or hydronephrosis. Ascites: Trace perihepatic ascites [facility] Jovi Davis MD - 11/12/2023 Patient Name: PREMA VILL[facility]PANDO : 1940 [id number] Exam Date/Time: 11/11/2023 09:18 Procedure: US ABDOMEN LIMITED Ordering Provider: MORTON LISA Reason For Exam: R79.89 ULTRASOUND ABDOMEN LIMITED CLINICAL INDICATION: Elevated liver function tests TECHNIQUE: Ultrasound of the right upper quadrant COMPARISON: 10/28/2022 FINDINGS: Pancreas: The visualized portions of the pancreatic head and body are unremarkable. The remainder of the pancreas is obscured by bowel gas Liver: Heterogeneous and echogenic with a mildly nodular contour. The liver is not enlarged. Hypoechoic right hepatic lobe lesion measuring 1.4 x 1.3 x 1.1 cm. Gallbladder: Surgically absent. Bile ducts: No intrahepatic and extrahepatic biliary dilatation Common bile duct: 5 mm Right kidney: Normal size measuring 10.2 cm. Normal parenchymal echogenicity without solid mass or hydronephrosis. Ascites: Trace perihepatic ascites IMPRESSION: 1. Heterogeneous and echogenic liver suggesting hepatic steatosis or other hepatocellular disease. The liver demonstrates a nodular contour suggestive of cirrhosis. 2. Hypoechoic right hepatic lobe lesion. This could represent a cyst with debris but other lesions are not excluded; recommend MRI with contrast for further evaluation. 3. Trace perihepatic ascites. Report Dictated on Electronically Signed By: Jovi Davis MD Electronically Signed Date/Time: 11/12/2023 7:58 AM EDT [facility] US Abdomen limitedOrdered By : Jovi Davis on 11-12-2023 [facility] Work Phone: US Abdomen limitedon 024 Radiology Study observation (narrative) [facility] ECG 12 leadon 08-18-2023 NSR with PAC's Low voltage in limb leads. -Nonspecific T-abnormality. ABNORMAL [facility] Office Visiton 08-18-2023 Follow-up visit [id number] Jayna Villalpando 1940 F Date Provider Department Center 08/18/2023 [id number] BEY [facility] Family History Problem Relation Age of Onset High Blood Pressure Mother Heart disease Brother Cancer Brother Coronary artery disease Brother High Blood Pressure Brother Diabetes Brother Family Status - Relation Status Age at Mother Father Brother Level of Service:27267 UT OFFICE/OUTPATIENT ESTABLISHED MOD MDM 30 MIN Reason for Visit and Comments: 1 Year Follow-up [670] Coronary Artery Disease [187] Normal [facility] Progress Noteon 08-18-2023 Progress Note [facility] Cardiology [facility] [address] [facility] [address] Dept: [phone] Dept Visit type: Established : 1940 Chief Complaint: Chief Complaint Patient presents with 1 Year Follow-up Coronary Artery Disease History of Present Illness: Prema Villalpando is a 82 y.o. female who is here in follow-up. She is here with her daughter. She has a history of remote stenting. She has not been complaining of chest pain according to her daughter. The patient has progressive dementia so the daughter essentially answered all the questions. Currently patient lives with her daughter but they are hoping on getting her into a memory care unit. Past Medical History: Past Medical History: Diagnosis Date Anemia Anxiety GERD (gastroesophageal reflux disease) H/O heart artery stent 08/04/2018 History of blood transfusion Hx of blood clots Hyperlipidemia Hypertension Past Surgical History Past Surgical History: Procedure Laterality Date CHOLECYSTECTOMY 03/2019 COLONOSCOPY COLONOSCOPY 03/07/2019 stent removal COLONOSCOPY 09/21/2018 ERCP (HISTORICAL) 02/15/2019 EYE SURGERY Bilateral cataract THROAT SURGERY 2014 TUBAL LIGATION 1989 UPPER GASTROINTESTINAL ENDOSCOPY 08/08/2018 Dr [facility] Family History Family History Problem Relation Name Age of Onset High Blood Pressure Mother Heart disease Brother Cancer Brother Coronary artery disease Brother High Blood Pressure Brother Diabetes Brother Social History Social History Tobacco Use Smoking status: Never Smokeless tobacco: Never Vaping Use Vaping status: Never Used Substance Use Topics Alcohol use: Never Drug use: Never Allergies: Allergies Allergen Reactions Ticagrelor Shortness of breath Medications: Current Outpatient Medications: Lancets (OneTouch Delica) lancets 30G, TEST SUGAR ONCE A DAY, Disp: , Rfl: metFORMIN (Glucophage) 500 MG tablet, Take 500 mg by mouth in the morning and 500 mg in the evening. Take with meals., Disp: , Rfl: mirtazapine (Remeron) 15 MG tablet, Take 15 mg by mouth Nightly., Disp: , Rfl: omeprazole (PriLOSEC) [address] capsule, Take 40 mg by mouth every morning (before breakfast). Do not crush or chew., Disp: , Rfl: OneTouch Ultra test strip, TEST SUGAR ONCE A DAY, Disp: , Rfl: oxybutynin (Ditropan) 5 MG tablet, Take 5 mg by mouth 2 times daily., Disp: , Rfl: rivastigmine (Exelon) 3 MG capsule, Take 3 mg by mouth 2 times daily., Disp: , Rfl: sertraline (Zoloft) 50 MG tablet, Take 50 mg by mouth daily., Disp: , Rfl: therapeutic multivitamin-minerals (Theragran-M) tablet, Take 1 tablet by mouth daily., Disp: , Rfl: tiZANidine (Zanaflex) 4 MG tablet, TAKE 1 TABLET BY MOUTH THREE TIMES A DAY NEEDED *50 TABLETS TO LAST 30 DAYS*, Disp: , Rfl: torsemide (Demadex) 20 MG tablet, TAKE 1 TABLET BY MOUTH EVERY DAY, Disp: 90 tablet, Rfl: 1 clopidogrel (Plavix) 75 MG tablet, Take 75 mg by mouth daily., Disp: , Rfl: fesoterodine ER (Toviaz) 4 MG 24 hr tablet, Take 4 mg by mouth daily., Disp: , Rfl: potassium chloride ER (Micro-K) 10 MEQ ER capsule, TAKE 1 TABLET BY MOUTH TWICE DAILY WITH MEALS, Disp: , Rfl: Review of Systems: Review of Systems Constitutional: Negative for activity change, chills, diaphoresis, fatigue and fever. HENT: Negative for nosebleeds and trouble swallowing. Eyes: Negative for discharge and visual disturbance. Respiratory: Negative for apnea, cough, chest tightness, shortness of breath and wheezing. Cardiovascular: Negative for chest pain, palpitations and leg swelling. Gastrointestinal: Negative for abdominal distention, abdominal pain, blood in stool, diarrhea, nausea and vomiting. Endocrine: Negative for cold intolerance and heat intolerance. Genitourinary: Negative for hematuria. Musculoskeletal: Negative for gait problem and myalgias. Skin: Negative for color change and rash. Neurological: Negative for dizziness, seizures, syncope, facial asymmetry, speech difficulty, weakness, light-headedness, numbness and headaches. Hematological: Does not bruise/bleed easily. Psychiatric/Behavioral: Negative for dysphoric mood. Physical Examination: Vitals: Vitals: 08/18/23 1105 BP: 106/56 BP Location: Right arm Patient Position: Sitting BP Cuff Size: Adult Pulse: 62 Resp: 16 SpO2: 97% Weight: 103 lb 3.2 oz (46.8 kg) Height: 5' (1.524 m) Body mass index is 20.15 kg/m?. Physical Exam Laboratory Tests: Lab Results Component Value Date WBC 6.3 06/16/2022 HGB 9.4 (L) 06/16/2022 HCT 28.0 (L) 06/16/2022 MCV 81.5 06/16/2022 PLT 166 06/16/2022 Lab Results Component Value Date GLUCOSE 108 (H) 09/24/2022 CALCIUM 9.5 09/24/2022 NA 142 09/24/2022 K 4.2 09/24/2022 CO2 32 (H) 09/24/2022 CL 106 09/24/2022 BUN 18 (H) 09/24/2022 CREATININE 0.85 09/24/2022 @LASTCMP@ Lab Resul (more content not included)... [facility] 07-27-2023 36 Form signed and faxe d back to [phone]. Form uploaded to [employer]. [facility] 07-23-2023 36 Received form from [facility] for cardiac clearance for EGD with MAC sedation. Form and last OV given to nurse. [facility] 36on 07-20-2023 36 S: Patient's rianna Catalan spoke with [facility] nurse regarding fall. B: Onset of symptoms/concern this morning. A: Patient had an unwitnessed fall this morning while making the bed. Daughter states no apparent injuries seen. Patient not on a blood thinner. Patient is not complaining of any pain. Patient has advanced dementia and hard to assess patient, but no bruising, bleeding, or bumps noted on the patient. Patient is ambulating without any issues. Daughter not sure if the patient should be evaluated for the fall. R: Daughter advised a message will be sent to the provider and the office will follow up. Daughter also going to call the office back after they open this morning. Daughter understands and no further needs at this time. Patient instructed to call back with new or worsening symptoms. Reason for Disposition [1] Recent fall AND [2] no injury Protocols used: Falls and [id number] Normal [facility] Bacteria identified Cx Nom ( U)Ordered By: Fallon Lopez on 05-13-2023 Interpretation and review of laboratory results Normal [facility] Urine culture (clean catch)O rdered By: Fallon Lopez on 05-13-2023 Bacteria identified Cx Nom (U) Normal urogenital nayeli present [facility] COMPLETE URINALYSISon 2023 BACTERIA (#/HPF) IN URINE Moderate Abnormal Negative [facility] Comment on above: Performed By: #### L [id number] #### Windows Systems Architect: YAZ MAURER ([id number]) [facility] [employer] (SW[employer]) [address] [place] [address] BILIRUBIN, TOTAL PRESENCE IN URINE Negative Normal Negative [facility] Comment on above: Performed By: #### L [id number] #### Windows Systems Architect: YAZ MAURER ([id number]) [facility] [employer] ([employer]) [address] [place] [address] Clarity (U) Clear Normal Clear [facility] Comment on above: Performed By: #### L [id number] #### Windows Systems Architect: YAZ MAURER ([id number]) [facility] [employer] ([employer]) [address] [place] [address] [place] Color (U) Light Yellow Normal Lt. Yellow [facility] Comment on above: Performed By: #### L [id number] #### Windows Systems Architect: YZA MAURER ([phone]) [facility] RIZO RITTMAN (SWRLAB) [address] [place] [address] [place] GLUCOSE (MG/DL) IN URINE Normal Normal Normal (<70) [facility] Comment on above: Performed By: #### L [id number] #### Windows Systems Architect: YAZ MAURER ([id number]) [facility] DARRIUS RITTMAN (SWRLAB) [address] [place] [address] HEMOGLOBIN PRESENCE IN URINE Negative Normal Negative [facility] Comment on above: Performed By: #### L [id number] #### Windows Systems Architect: YAZ MAURER ([id number]) [facility]Tyrone RIZO RITTMAN (SWRLAB) [address] [place] [address] [place] HYALINE CASTS (#/LPF) IN URINE SEDIMENT BY MICROSCOPY 6-10 Abnormal Negative [facility] Comment on above: Performed By: #### L [id number] #### Windows Systems Architect: YAZ MAURER ([phone]) [facility]Tyr[facility] RIZO RITTMAN (SWRLAB) [address] [place] [address] [place] Ketones Ql (U) Negative Normal Negative [facility] Comment on above: Performed By: #### L [id number] #### Windows Systems Architect: YAZ MAURER ([id number]) [facility] RIZO RITTMAN (SWRLAB) [address] [place] [address] [place] LEUKOCYTE ESTERASE PRESENCE IN URINE BY TEST STRIP 25 Xavier/uL Abnormal Negative [facility] Comment on above: Performed By: #### L [id number] #### Windows Systems Architect: YAZ MAURER ([phone]) [facility] RIZO RITTMAN (SWRLAB) [address] [place] [address] [place] NITRITE PRESENCE IN URINE Negative Normal Negative [facility] Comment on above: Performed By: #### L [id number] #### Windows Systems Architect: YAZ MAURER ([id number]) [facility] RIZO RITTMAN (SWRLAB) [address] [place] [address] pH (U) 5.0 [pH] Normal 5.0-8.0 [facility] Comment on above: Performed By: #### L [id number] #### Windows Systems Architect: YAZ MAURER ([id number]) [facility] RIZO RITTMAN (SWRLAB) [address] [place] [address] Protein (U) [Mass/Vol] Negative Normal Negative [facility] Comment on above: Performed By: #### L [id number] #### Windows Systems Architect: YAZ MAURER ([id number]) [facility] RIZO RITTMAN (SWRLAB) [address] [place] [address] [place] RBC (#/HPF) IN URINE SEDIMENT Negative Normal 0-2 [facility] Comment on above: Performed By: #### L [id number] #### Windows Systems Architect: YAZ MAURER ([id number]) [facility] RIZO RITTMAN (SWRLAB) [address] [place] [address] Specific gravity (U) [Rel density] 1.013 Normal 1.005-1.030 [facility] Comment on above: Performed By: #### L [id number] #### Windows Systems Architect: YAZ MAURER ([phone]) [facility]Tyrone RIZO RITTMAN (SWRLAB) [address] [place] [address] Specimen volume (U) 12 mL Normal [facility] Comment on above: Performed By: #### L [id number] #### Windows Systems Architect: YAZ MAURER ([id number]) [facility] RIZO RITTMAN (SWRLAB) [address] [place] [address] [place] SQUAMOUS EPITHELIAL CELLS (#/HPF) IN URINE SEDIMENT Negative Normal 3-5 [facility] Comment on above: Performed By: #### L [id number] #### Windows Systems Architect: YAZ MAURER ([id number]) [facility] CITLALLITMAN (SWRLAB) [address] [place] [address] [place] UROBILINOGEN (MG/DL) IN URINE Normal Normal Normal (0-1) [facility] Comment on above: Performed By: #### L [id number] #### Windows Systems Architect: YAZ MAURER ([id number]) [facility] (SWRLAB) [address] [place] [address] WBC (LEUKOCYTE) (#/HPF) IN URINE SEDIMENT 0-2 Normal 0-5 [facility] Comment on above: Performed By: #### L [id number] #### Windows Systems Architect: YAZ MAURER ([id number]) [facility] CITLALLITMAN (SWRLAB) [address] [place] [address] URINE CULTUREon 05-11-2023 Bacteria identified Cx Nom (U) URINE CULTURE Reference Normal urogenital nayeli present [ S = SUSCEPTIBLE R = RESISTANT I = INTERMEDIATE S-DD = Susceptible-dose dependent NS = Non-susceptible NO = No Interpretation ] Normal [facility] Comment on above: Performed By: #### L [id number] #### Windows Systems Architect: YAZ MAURER ([id number]) [facility] [address] [place] [address] Urinalysis complete panel (U )Ordered By: Antoine Cedeno on 05-11-2023 Bacteria LM.HPF (Urine sed) [#/Area] Moderate Abnormal Negative /HPF [facility] Bilirubin Ql (U) Negative Negative mg/dL [facility] Clarity (U) Clear Clear [facility] Color (U) Light Yellow Lt. Yellow [facility] Epithelial cells.squamous LM.HPF (Urine sed) [#/Area] Negative [facility] Glucose Ql (U) Normal Normal (<70) mg/dL [facility] Hemoglobin Ql (U) Negative Negative mg/dL [facility] Hyaline casts Auto (Urine sed) [#/Area] 6-10 Abnormal Negative /LPF [facility] Interpretation and review of laboratory results Abnormal [facility] Ketones (U) [Mass/Vol] Negative Negat brook mg/dL [facility] Leukocyte esterase Test strip Ql (U) 25 Abnormal Negative Xavier/uL [facility] Nitrite Ql (U) Negative Negative [facility] pH (U) 5.0 [pH] 5.0 - 8.0 pH [facility] Protein (U) [Mass/Vol] Negative Negat brook mg/dL [facility] RBC LM.HPF (Urine sed) [#/Area] Negative [facility] Specific gravity (U) [Rel density] 1.013 1.005 - 1.030 [facility] Urobilinogen (U) [Mass/Vol] Normal Normal (0-1) mg/dL [facility] Volume, Urine 12 mL [facility] WBC LM.HPF (Urine sed) [#/Area] 0-2 [facility] 36on 04-14-2023 36 Patient is scheduled to see JDR on 08/18/23. Normal [facility] 36on 04-12-2023 36 BEATRIS: 08/25/22, Labs: 09/24/22 Normal [facility] US Abdomenon 10-29-2022 1. Unremarkable postcholecystectomy ultrasound of the abdomen as discussed --- unchanged since prior study 4.5 months ago (heterogeneous echogenicity of the liver without focal lesions). Report Dictated on Electronically Signed By: Rufus Miller MD Electronically Signed Date/Time: 10/29/2022 4:15 PM [facility] Patient Name: PREMA VILLALPANDO : 1940 Exam Date/Time: 10/28/2022 09:48 Procedure: US ABDOMEN COMPLETE Ordering Provider: MORTON LISA Reason For Exam: r79.89 CLINICAL INFORMATION: Abnormal liver function test Sonogram of the abdomen is performed. Comparison CT 2019, ultrasound 06/15/2022 The liver is heterogeneous in echotexture. No hyper or hypo echoic masses are seen. There is no intrahepatic biliary ductal dilatation. The gallbladder is absent. The common bile duct diameter of 5 mm is within normal limits. No obvious pancreatic mass or peripancreatic fluid collection is identified (the pancreas is partially obscured by bowel gas). Cursory examination of the kidneys is performed. The right renal length is 10.1 cm. The left renal length is 9.0 cm. 1.3 cm cortical cyst. There is no hydronephrosis. There is no ascites. The spleen is unremarkable with calcified granulomas The visualized portions of the aorta and inferior vena cava are within normal limits. [facility] Rufus Miller MD - 10/29/2022 Patient Name: [facility]ANDO [facility] 1940 [id number] Exam Date/Time: 10/28/2022 09:48 Procedure: US ABDOMEN COMPLETE Ordering Provider: MORTON LISA Reason For Exam: [id number] CLINICAL INFORMATION: Abnormal liver function test Sonogram of the abdomen is performed. Comparison CT 2019, ultrasound 06/15/2022 The liver is heterogeneous in echotexture. No hyper or hypo echoic masses are seen. There is no intrahepatic biliary ductal dilatation. The gallbladder is absent. The common bile duct diameter of 5 mm is within normal limits. No obvious pancreatic mass or peripancreatic fluid collection is identified (the pancreas is partially obscured by bowel gas). Cursory examination of the kidneys is performed. The right renal length is 10.1 cm. The left renal length is 9.0 cm. 1.3 cm cortical cyst. There is no hydronephrosis. There is no ascites. The spleen is unremarkable with calcified granulomas The visualized portions of the aorta and inferior vena cava are within normal limits. IMPRESSION: 1. Unremarkable postcholecystectomy ultrasound of the abdomen as discussed --- unchanged since prior study 4.5 months ago (heterogeneous echogenicity of the liver without focal lesions). Report Dictated on Electronically Signed By: Rufus Miller MD Electronically Signed Date/Time: 10/29/2022 4:15 PM EDT [facility] US AbdomenOrdered By: Jero Miller on 10-29-2022 [facility] Work Phone: US Abdomenon 10-28-2022 Radiology Study observation (narrative) [employer] [facility] Comprehensive metabolic 1998 panelon 09-24-2022 Albumin [Mass/Vol] 4.2 g/dL 3.5 - 5.0 g/dL [employer] [facility] ALP [Catalytic activity/Vol] 211 U/L High 38 - 126 U/L [facility] ALT [Catalytic activity/Vol] 82 U/L High 0 - 34 U/L [facility] Anion gap [Moles/Vol] 3 mmol/L 3 - 13 mmol/L [facility] AST [Catalytic activity/Vol] 103 U/L High 15 - 46 U/L [facility] Bilirubin [Mass/Vol] 0.4 mg/dL 0.2 - 1 .3 mg/dL [facility] Calcium [Mass/Vol] 9.5 mg/dL 8.4 - 10. 4 mg/dL [facility] Chloride [Moles/Vol] 106 mmol/L 98 - 10 7 mmol/L [facility] CO2 [Moles/Vol] 32 mmol/L High 22 - 30 mmol/L [facility] Creatinine [Mass/Vol] 0.85 mg/dL 0.52 - 1.04 mg/dL [facility] GFR/1.73 sq M.predicted MDRD (S/P/Bld) [Vol rate/Area] 69.8 mL/min/{1.73_m2} - PINF [facility] Comment on above: Calculation based on the Chronic Kidney Disease Epidemiology Collaboration (CKD-EPI) equation refit without adjustment for race Glucose [Mass/Vol] 108 mg/dL High 70 - 100 mg/dL [facility] Potassium [Moles/Vol] 4.2 mmol/L 3.5 - 5.1 mmol/L [facility] Protein [Mass/Vol] 8.5 g/dL High 6.3 - 8.2 g/dL [facility] Sodium [Moles/Vol] 142 mmol/L 135 - 145 mmol/L [facility] Urea nitrogen [Mass/Vol] 18 mg/dL High 7 - 17 mg/dL [facility] Lipid 1996 panelon 3 Cholesterol [Mass/Vol] 143 mg/dL NINF - 200 mg/dL [facility] Cholesterol in HDL [Mass/Vol] 61 mg/dL High 40 - 60 mg/dL [facility] Cholesterol in LDL [Mass/Vol] 73 mg/dL 0 - <100 [facility] Cholesterol.total/Chol esterol in HDL [Mass ratio] 2 {ratio} [facility] Comment on above: Ref Range: < 3 Low Risk for CHD 3-6 Mod Risk for CHD > 6 High Risk for CHD Triglyceride [Mass/Vol] 45 mg/dL NINF - 150 mg/dL [facility] No Panel Informationon 09-24 Interpretation and review of laboratory results Abnormal [facility] Basic metabolic 1998 panelon 09-14-2022 Anion gap [Moles/Vol] 8 mmol/L 3 - 13 mmol/L [facility] Calcium [Mass/Vol] 9.2 mg/dL 8.4 - 10. 4 mg/dL [facility] Chloride [Moles/Vol] 102 mmol/L 98 - 10 7 mmol/L [facility] CO2 [Moles/Vol] 31 mmol/L High 22 - 30 mmol/L [facility] Creatinine [Mass/Vol] 0.92 mg/dL 0.52 - 1.04 mg/dL [facility] GFR/1.73 sq M.predicted MDRD (S/P/Bld) [Vol rate/Area] 63.5 mL/min/{1.73_m2} - PINF [facility] Comment on above: Calculation based on the Chronic Kidney Disease Epidemiology Collaboration (CKD-EPI) equation refit without adjustment for race Glucose [Mass/Vol] 139 mg/dL High 70 - 100 mg/dL [facility] Interpretation and review of laboratory results Abnormal [facility] Potassium [Moles/Vol] 4.1 mmol/L 3.5 - 5.1 mmol/L [facility] Sodium [Moles/Vol] 140 mmol/L 135 - 145 mmol/L [facility] Urea nitrogen [Mass/Vol] 23 mg/dL High 7 - 17 mg/dL [facility] No Panel Informationon 08-25 [facility] Absolute lymphocyte countOrd ered By: Anabel Duvall on 07-09-2022 Lymphocytes Auto (Unsp spec) [#/Vol] 1.56 10*3/uL 0.83-4.51 [facility] Basophil percentageOrdered B y: Anabel Duvall on 07-09-2022 Basophils/100 WBC (Bld) 1.2 % 0-1 [facility] Chloride [Moles/Vol] 111 mmol/L 98-[address] [facility] Eosinophils/100 WBC (Bld) 3.2 % 0-5 [facility] Glucose [Mass/Vol] 115 mg/dL 74-106 [facility] Comment on above: Fasting Glucose resu lt from 100 to 125 mg/dL suggests IMPAIRED HOMEOSTASIS per A.D.A. criteria. Neutrophils (Bld) [#/Vol] 2.8 10*3/uL 2.0-7.7 [facility] Neutrophils/100 WBC (Bld) 56.0 % 47-70 [facility] Potassium [Moles/Vol] 4.3 mmol/L 3.5-5.1 [facility] Sodium [Moles/Vol] 144 mmol/L 136-145 [facility] WBC (Bld) [#/Vol] 5.1 10*3/uL 4.4-11.0 [facility] Blood erythrocytes count (nu mber/volume)Ordered By: Anabel Duvall on 07-09-2022 RBC (Bld) [#/Vol] 3.60 10*6/uL 4.2-5.4 [facility] Blood hemoglobin measurement (mass/volume)Ordered By: Anabel Duvall on 07-09-2022 Hemoglobin (Bld) [Mass/Vol] 10.0 g/dL 12.0-15.0 [facility] Blood lymphocytes/100 leukoc ytesOrdered By: Anbael Duvall on 07-09-2022 Lymphocytes/100 WBC (Bld) 30.9 % 19-41 [facility] Blood monocytes/100 leukocyt esOrdered By: Anabel Duvall on 07-09-2022 Monocytes/100 WBC (Bld) 8.5 % 0-10 [facility] Blood platelet mean volumeOr dered By: Anabel Duvall on 07-09-2022 Platelet mean volume (Bld) [Entitic vol] 12.2 fL 6.2-12.0 [facility] Determination of erythrocyte mean corpuscular volume (MCV)Ordered By: Anabel Duvall on 07-09-2022 MCV (RBC) [Entitic vol] 91.1 fL 81-99 [facility] Hematocrit Auto (Bld) [Volum e fraction]Ordered By: Anabel Duvall on 07-09-2022 Hematocrit (Bld) [Volume fraction] 32.8 % 37-47 [facility] Laboratory - Chemistry and C hemistry - challengeOrdered By: Anabel Duvall on 07-09-2022 CO2 [Moles/Vol] 31.0 mmol/L 21.0-32.0 [facility] Urea nitrogen/Creatinine [Mass ratio] 35.1 mg/mg 10-20 [facility] Laboratory - Hematology and Cell countsOrdered By: Anabel Duvall on 07-09-2022 Erythrocyte distribution width (RBC) [Entitic vol] 62.8 fL 35.1-43.9 [facility] Erythrocyte distribution width (RBC) [Ratio] 19.1 % 11.6-14.6 [facility] Immature granulocytes/100 WBC (Bld) 0.200 % 0.0-0.9 [facility] Comment on above: IG% - Immature Granu locytes (promyelocytes, myelocytes and metamyelocytes) > 1% indicates that a LEFT SHIFT is Present. MCH (RBC) [Entitic mass] 27.8 pg 27.0-32.0 [facility] Nucleated RBC/100 WBC (Bld) [Ratio] 0 % 0-5 [facility] MCHC Auto (RBC) [Mass/Vol]Or dered By: Anabel Duvall on 07-09-2022 MCHC (RBC) [Mass/Vol] 30.5 g/dL 32-36 [facility] No Panel InformationOrdered By: Anabel Duvall on 07-09-2022 Estimated GFR (MDRD) Amer 82 mL/min >60 [facility] Comment on above: GFR Calc Estimated GFR (MDRD) Non-Af Amer 68 mL/min >60 [facility] Comment on above: Non- GFR Calc Platelets bldOrdered By: Shan Duvall on 07-09-2022 Platelets (Bld) [#/Vol] 207 10*3/uL 150-450 [facility] Serum or plasma calcium blanco urement (mass/volume)Ordered By: Anabel Duvall on 07-09-2022 Calcium [Mass/Vol] 8.7 mg/dL 8.5-10.1 [facility] Serum or plasma creatinine m easurement (mass/volume)Ordered By: Anabel Duvall on 07-09-2022 Creatinine [Mass/Vol] 0.85 mg/dL 0.55-1.02 [facility] Comment on above: The validity of the calculated GFR & GFRAA in patients over 70 years has not been determined. Clinical correlation is essential. Serum or plasma urea nitroge n measurement (mass/volume)Ordered By: Anabel Duvall on 07-09-2022 Urea nitrogen [Mass/Vol] 30 mg/dL 7-18 [facility] Thin prep Papanicolaou smear with manual screeningOrdered By: Anabel Duvall on 07-09-2022 Thin prep Papanicolaou smear with manual screening 2 5-15 [facility] Basophil percentageOrdered B y: Fallon Mcclendon on 06-26-2022 Ammonia (P) [Moles/Vol] 27.0 umol/L [facility] Absolute lymphocyte countOrd ered By: kunelevajono Duvall on 06-25-2022 Lymphocytes Auto (Unsp spec) [#/Vol] 1.27 10*3/uL 0.83-4.51 [facility] Basophil percentageOrdered B y: Anabel Duvall on 06-25-2022 Basophils/100 WBC (Bld) 0.9 % 0-1 [facility] Bilirubin [Mass/Vol] 0.40 mg/dL 0.20-1.00 [facility] Comment on above: For patients on eltr ombopag therapy, use of Dimension [place] TBIL is not recommended. Chloride [Moles/Vol] 111 mmol/L 98-107 [facility] Eosinophils/100 WBC (Bld) 2.0 % 0-5 [facility] Glucose [Mass/Vol] 122 mg/dL 74-106 [facility] Comment on above: Fasting Glucose resu lt from 100 to 125 mg/dL suggests IMPAIRED HOMEOSTASIS per A.D.A. criteria. Neutrophils (Bld) [#/Vol] 4.4 10*3/uL 2.0-7.7 [facility] Neutrophils/100 WBC (Bld) 69.0 % 47-70 [facility] Potassium [Moles/Vol] 3.7 mmol/L 3.5-5.1 [facility] Protein [Mass/Vol] 6.7 g/dL 6.4-8.2 [facility] Sodium [Moles/Vol] 146 mmol/L 136-145 [facility] WBC (Bld) [#/Vol] 6.4 10*3/uL 4.4-11.0 [facility] Blood erythrocytes count (nu mber/volume)Ordered By: Anabel Duvall on 06-25-2022 RBC (Bld) [#/Vol] 3.33 10*6/uL 4.2-5.4 [facility] Blood hemoglobin measurement (mass/volume)Ordered By: Anabel Duvall on 06-25-2022 Hemoglobin (Bld) [Mass/Vol] 9.2 g/dL 12.0-15.0 [facility] Blood lymphocytes/100 leukoc ytesOrdered By: Anabel Duvall on 06-25-2022 Lymphocytes/100 WBC (Bld) 19.8 % 19-41 [facility] Blood monocytes/100 leukocyt esOrdered By: kunelevajoon Duvall on 06-25-2022 Monocytes/100 WBC (Bld) 8.1 % 0-10 [facility] Blood platelet mean volumeOr dered By: Anabel Duvall on 06-25-2022 Platelet mean volume (Bld) [Entitic vol] 11.9 fL 6.2-12.0 [facility] Determination of erythrocyte mean corpuscular volume (MCV)Ordered By: Anabel Duvall on 06-25-2022 MCV (RBC) [Entitic vol] 89.2 fL 81-99 [facility] Hematocrit Auto (Bld) [Volum e fraction]Ordered By: Anabel Duvall on 06-25-2022 Hematocrit (Bld) [Volume fraction] 29.7 % 37-47 [facility] Laboratory - Chemistry and C hemistry - challengeOrdered By: Anabel Duvall on 06-25-2022 ALP [Catalytic activity/Vol] 240 U/L 45-117 [facility] ALT [Catalytic activity/Vol] 132 U/L 13-56 [facility] CO2 [Moles/Vol] 30.0 mmol/L 21.0-32.0 [facility] Globulin (S) [Mass/Vol] 4.3 g/dL 2.2-4.2 [facility] Urea nitrogen/Creatinine [Mass ratio] 27.6 mg/mg 10-20 [facility] Laboratory - Hematology and Cell countsOrdered By: Anabel Duvall on 06-25-2022 Erythrocyte distribution width (RBC) [Entitic vol] 53.0 fL 35.1-43.9 [facility] Erythrocyte distribution width (RBC) [Ratio] 17.0 % 11.6-14.6 [facility] Immature granulocytes/100 WBC (Bld) 0.200 % 0.0-0.9 [facility] Comment on above: IG% - Immature Granu locytes (promyelocytes, myelocytes and metamyelocytes) > 1% indicates that a LEFT SHIFT is Present. MCH (RBC) [Entitic mass] 27.6 pg 27.0-32.0 [facility] Nucleated RBC/100 WBC (Bld) [Ratio] 0 % 0-5 [facility] MCHC Auto (RBC) [Mass/Vol]Or dered By: Anabel Duvall on 06-25-2022 MCHC (RBC) [Mass/Vol] 31.0 g/dL 32-36 [facility] No Panel InformationOrdered By: Anabel Duvall on 06-25-2022 Estimated GFR (MDRD) Amer 81 mL/min >60 [facility] Comment on above: GFR Calc Estimated GFR (MDRD) Non-Af Amer 67 mL/min >60 [facility] Comment on above: Non- GFR Calc Platelets bldOrdered By: Shan Duvall on 06-25-2022 Platelets (Bld) [#/Vol] 216 10*3/uL 150-450 [facility] Serum or plasma albumin blanco urement (mass/volume)Ordered By: Anabel Duvall on 06-25-2022 Albumin [Mass/Vol] 2.4 g/dL 3.2-5.0 [facility] Serum or plasma albumin/glob ulin mass ratioOrdered By: Anabel uDvall on 06-25-2022 Albumin/Globulin [Mass ratio] 0.6 {ratio} 0.9-2.4 [facility] Serum or plasma calcium blanco urement (mass/volume)Ordered By: Anabel Duvall on 06-25-2022 Calcium [Mass/Vol] 8.0 mg/dL 8.5-10.1 [facility] Serum or plasma creatinine m easurement (mass/volume)Ordered By: Anabel Duvall on 06-25-2022 Creatinine [Mass/Vol] 0.87 mg/dL 0.55-1.02 [facility] Comment on above: The validity of the calculated GFR & GFRAA in patients over 70 years has not been determined. Clinical correlation is essential. Serum or plasma urea nitroge n measurement (mass/volume)Ordered By: Anabel Duvall on 06-25-2022 Urea nitrogen [Mass/Vol] 24 mg/dL 08-25 [facility] Thin prep Papanicolaou smear with manual screeningOrdered By: Anabel Duvall on 06-25-2022 Thin prep Papanicolaou smear with manual screening 163 U/L 15 [facility] Thin prep Papanicolaou smear with manual screening 5 5-15 [facility] Whole blood hemoglobin A1c/t otal hemoglobin ratio (mass fraction)Ordered By: Anabel Duvall on 06-25-2022 HbA1c (Bld) [Mass fraction] 5.7 % 3.8-5.6 [facility] Comment on above: Normal < 5.7 % Predi abetic 5.7 - 6.4 % Diabetic >or= 6.5 % Please note range changes. CBC panel Auto (Bld)Ordered By: Zack Hastings on 06-16-2022 Erythrocyte distribution width (RBC) [Ratio] 14.9 % High 11.5 - 14.5 % [employer] Hematocrit (Bld) [Volume fraction] 28.0 % Low 35.0 - 47.0 % [employer] Hemoglobin (Bld) [Mass/Vol] 9.4 g/dL Low 11.7 - 16.0 g/dL [facility] [employer] [employer] Interpretation and review of laboratory results Abnormal [facility] [employer] MCH (RBC) [Entitic mass] 27.3 pg 26.0 - 34.0 pg [facility] [facility] MCHC (RBC) [Mass/Vol] 33.5 % 32.0 - 36.0 % [facility] MCV (RBC) [Entitic vol] 81.5 fL 80.0 - 98.0 fL [facility] Platelet mean volume (Bld) [Entitic vol] 8.7 fL 7.4 - 12.4 fL [facility] Platelets (Bld) [#/Vol] 166 10*3/uL 140 - 440 10*3/uL [facility] RBC (Bld) [#/Vol] 3.44 10*6/uL Low 3.8 - 5.20 10*6/uL [facility] WBC (Bld) [#/Vol] 6.3 10*3/uL 3.6 - 10.7 10*3/uL [facility] Comprehensive metabolic 1998 panelon 06-16-2022 Albumin [Mass/Vol] 2.7 g/dL Low 3.5 - 5.0 g/dL [facility] ALP [Catalytic activity/Vol] 156 U/L High 38 - 126 U/L [facility] ALT [Catalytic activity/Vol] 140 U/L High 0 - 34 U/L [facility] Anion gap [Moles/Vol] 0 mmol/L Low 3 - 13 mmol/L [facility] AST [Catalytic activity/Vol] 167 U/L High 15 - 46 U/L [facility] Bilirubin [Mass/Vol] 0.2 mg/dL 0.2 - 1 .3 mg/dL [facility] Calcium [Mass/Vol] 7.5 mg/dL Low 8.4 - 10. 4 mg/dL [facility] Chloride [Moles/Vol] 108 mmol/L High 98 - 10 7 mmol/L [facility] CO2 [Moles/Vol] 29 mmol/L 22 - 30 mmol/L [facility] Creatinine [Mass/Vol] 0.77 mg/dL 0.52 - 1.04 mg/dL [facility] GFR/1.73 sq M.predicted MDRD (S/P/Bld) [Vol rate/Area] 78.6 mL/min/{1.73_m2} - PINF [facility] Comment on above: Calculation based on the Chronic Kidney Disease Epidemiology Collaboration (CKD-EPI) equation refit without adjustment for race Glucose [Mass/Vol] 92 mg/dL 70 - 100 mg/dL [facility] Interpretation and review of laboratory results Abnormal [facility] Potassium [Moles/Vol] 3.2 mmol/L Low 3.5 - 5.1 mmol/L [facility] Protein [Mass/Vol] 6.4 g/dL 6.3 - 8.2 g/dL [facility] Sodium [Moles/Vol] 138 mmol/L 135 - 145 mmol/L [facility] Urea nitrogen [Mass/Vol] 21 mg/dL High 7 - 17 mg/dL [facility] Laboratory - Microbiology an d Antimicrobial susceptibilityOrdered By: Hazel Harrison on 06-16-2022 SARS-CoV-2 (COVID-19) Ag IA.rapid Ql (Resp) Negative Negative [facility] Comment on above: A negative result do es not rule out the possibility of SARS-CoV-2 infection. NAAT-based methods should be considered for symptomatic patients presenting greater than seven days after onset of symptoms. Method: Lateral flow immunoassay. Fact sheets for healthcare providers and patients can be found at the following sites: https://www.[employer].gov/media/879877/download https://www.[employer].gov/media/022509/download SARS-CoV-2 (COVID-19) Ag IA. rapid Ql (Resp)Ordered By: Hazel Harrison on 06-16-2022 Interpretation and review of laboratory results Normal [facility] CBC panel Auto (Bld)Ordered By: Kayla Lira on 06-15-2022 Erythrocyte distribution width (RBC) [Ratio] 14.3 % 11.5 - 14.5 % [facility] Hematocrit (Bld) [Volume fraction] 27.5 % Low 35.0 - 47.0 % [facility] Hemoglobin (Bld) [Mass/Vol] 9.1 g/dL Low 11.7 - 16.0 g/dL [facility] Interpretation and review of laboratory results Abnormal [facility] MCH (RBC) [Entitic mass] 27.4 pg 26.0 - 34.0 pg [facility] MCHC (RBC) [Mass/Vol] 33.3 % 32.0 - 36.0 % [facility] MCV (RBC) [Entitic vol] 82.4 fL 80.0 - 98.0 fL [facility] Platelet mean volume (Bld) [Entitic vol] 9.1 fL 7.4 - 12.4 fL [facility] Platelets (Bld) [#/Vol] 165 10*3/uL 140 - 440 10*3/uL [facility] RBC (Bld) [#/Vol] 3.34 10*6/uL Low 3.8 - 5.20 10*6/uL [facility] WBC (Bld) [#/Vol] 6.1 10*3/uL 3.6 - 10.7 10*3/uL [facility] Comprehensive metabolic 1998 panelon 06-15-2022 Albumin [Mass/Vol] 2.6 g/dL Low 3.5 - 5.0 g/dL [facility] ALP [Catalytic activity/Vol] 221 U/L High 38 - 126 U/L [facility] ALT [Catalytic activity/Vol] 136 U/L High 0 - 34 U/L [facility] Anion gap [Moles/Vol] 2 mmol/L Low 3 - 13 mmol/L [facility] AST [Catalytic activity/Vol] 189 U/L High 15 - 46 U/L [facility] Bilirubin [Mass/Vol] 0.2 mg/dL 0.2 - 1 .3 mg/dL [facility] Calcium [Mass/Vol] 7.5 mg/dL Low 8.4 - 10. 4 mg/dL [facility] Chloride [Moles/Vol] 107 mmol/L 98 - 10 7 mmol/L [facility] CO2 [Moles/Vol] 27 mmol/L 22 - 30 mmol/L [facility] Creatinine [Mass/Vol] 0.87 mg/dL 0.52 - 1.04 mg/dL [facility] GFR/1.73 sq M.predicted MDRD (S/P/Bld) [Vol rate/Area] 67.9 mL/min/{1.73_m2} - PINF [facility] Comment on above: Calculation based on the Chronic Kidney Disease Epidemiology Collaboration (CKD-EPI) equation refit without adjustment for race Glucose [Mass/Vol] 111 mg/dL High 70 - 100 mg/dL [facility] Interpretation and review of laboratory results Abnormal [facility] Potassium [Moles/Vol] 3.5 mmol/L 3.5 - 5.1 mmol/L [facility] Protein [Mass/Vol] 6.0 g/dL Low 6.3 - 8.2 g/dL [facility] Sodium [Moles/Vol] 137 mmol/L 135 - 145 mmol/L [facility] Urea nitrogen [Mass/Vol] 21 mg/dL High 7 - 17 mg/dL [facility] Ferritin [Mass/Vol]on 2022 Interpretation and review of laboratory results Normal [facility] Iron and Iron binding capaci ty panelon 06-15-2022 Interpretation and review of laboratory results Abnormal [facility] Iron [Mass/Vol] 23 ug/dL Low 37 - 170 ug/dL [facility] Iron binding capacity [Mass/Vol] 330 ug/dL 261 - 497 ug/dL [facility] Iron saturation [Mass fraction] 7 % Low 15 - 50 % [facility] Laboratory - Chemistry and C hemistry - challengeon 06-15-2022 Ferritin [Mass/Vol] 20 ng/mL 11 - 264 ng/mL [facility] [employer] No Panel InformationOrdered By: Rajat Swanson on 06-15-2022 P [place] 89 degrees [employer] Work Phone: UT Interval 177 ms [employer] Work Phone: QRS [place] -20 degrees [employer] Work Phone: QRSD Interval 90 ms [employer] Work Phone: [phone] QT Interval 438 ms [employer] Work Phone: [phone] QTC Interval 481 ms [employer] Work Phone: [phone] T Wave [place] 39 degrees [employer] Work Phone: [phone] [employer] Work Phone: No Panel Informationon 06-15 Sinus rhythm Atrial premature complex Borderline left axis deviation Borderline low voltage, extremity leads Compared to ECG 02/11/2019 07:22:58 Atrial premature complex(es) now present Atrial fibrillation no longer present Electronically Signed On 06-15-2022 2:53:31 EDT by Rajat Arizmendi D O - 06/15/2022 IMPRESSION: Sinus rhythm Atrial premature complex Borderline left axis deviation Borderline low voltage, extremity leads Compared to ECG 02/11/2019 07:22:58 Atrial premature complex(es) now present Atrial fibrillation no longer present Electronically Signed On 06-15-2022 2:53:31 EDT by Rajat Swanson [facility] [employer] US Abdomen limitedon 023 Nonspecific coarsene d heterogeneous echotexture of the liver without focal lesion identified. Correlation with LFTs is recommended. Trace ascites. Report Dictated on Electronically Signed By: Seymour Bragg Electronically Signed Date/Time: 06/15/2022 8:48 AM [facility] Patient Name: PREMA VILLALPANDO : 1940 Exam Date/Time: 06/15/2022 06:51 Procedure: US ABDOMEN LIMITED Ordering Provider: MORTON LISA Reason For Exam: INCREASED LIVER ENZYMES ULTRASOUND ABDOMEN LIMITED CLINICAL INDICATION: Increased liver enzymes TECHNIQUE: Ultrasound of the right upper quadrant including color flow imaging COMPARISON: 08/20/2020 Right Upper Quadrant Ultrasound FINDINGS: Liver: Nonspecific coarsened heterogeneous echotexture of the liver. No mass identified. Gallbladder: Surgically absent. Bile ducts: No intrahepatic or extrahepatic biliary dilatation. Common bile duct: 5 mm Pancreas: Visualized portions of the head, body, and tail are normal Right kidney: No pelvicalyceal dilatation Ascites: Trace [facility] Seymour Bragg MD - 06/15/2022 Patient Name: PREMA VILLALPANDO : 1940 Exam Date/Time: 06/15/2022 06:51 Procedure: US ABDOMEN LIMITED Ordering Provider: MORTON LISA Reason For Exam: INCREASED LIVER ENZYMES ULTRASOUND ABDOMEN LIMITED CLINICAL INDICATION: Increased liver enzymes TECHNIQUE: Ultrasound of the right upper quadrant including color flow imaging COMPARISON: 08/20/2020 Right Upper Quadrant Ultrasound FINDINGS: Liver: Nonspecific coarsened heterogeneous echotexture of the liver. No mass identified. Gallbladder: Surgically absent. Bile ducts: No intrahepatic or extrahepatic biliary dilatation. Common bile duct: 5 mm Pancreas: Visualized portions of the head, body, and tail are normal Right kidney: No pelvicalyceal dilatation Ascites: Trace IMPRESSION: Nonspecific coarsened heterogeneous echotexture of the liver without focal lesion identified. Correlation with LFTs is recommended. Trace ascites. Report Dictated on Electronically Signed By: Seymour Bragg Electronically Signed Date/Time: 06/15/2022 8:48 AM EDT [facility] Radiology Study observation (narrative) [employer] [facility] [employer] US Abdomen limitedOrdered By : Seymour Bragg on 06-15-2022 [employer] Work Phone: Vital signsOrdered By: Ivet Swanson on 06-15-2022 Heart rate 73 /min bpm [employer] Work Phone: CBC W Auto Differential pane l (Bld)Ordered By: Cristiane Womack on 06-14-2022 Basophils (Bld) [#/Vol] 0.0 10*3/uL 0.0 - 0.2 10*3/uL [employer] [facility] [employer] Basophils/100 WBC (Bld) 0.4 % 0.0 - 2.0 % [facility] Eosinophils (Bld) [#/Vol] 0.1 10*3/uL 0.0 - 0.5 10*3/uL [facility]) Eosinophils/100 WBC (Bld) 1.8 % 1.0 - 6.0 % [facility] Erythrocyte distribution width (RBC) [Ratio] 14.4 % 11.5 - 14.5 % [facility]) Hematocrit (Bld) [Volume fraction] 27.0 % Low 35.0 - 47.0 % [facility] Hemoglobin (Bld) [Mass/Vol] 8.9 g/dL Low 11.7 - 16.0 g/dL [facility]) Interpretation and review of laboratory results Abnormal [facility]) Lymphocytes (Bld) [#/Vol] 1.1 10*3/uL 1.0 - 4.3 10*3/uL [facility]) Lymphocytes/100 WBC (Bld) 25.1 % 20.0 - 40.0 % [facility] MCH (RBC) [Entitic mass] 26.8 pg 26.0 - 34.0 pg [facility] [employer]) MCHC (RBC) [Mass/Vol] 32.8 % 32.0 - 36.0 % [facility] [employer]) MCV (RBC) [Entitic vol] 81.7 fL 80.0 - 98.0 fL [facility] [employer]) Monocytes (Bld) [#/Vol] 0.3 10*3/uL 0.0 - 0.8 10*3/uL [facility] [employer] Monocytes/100 WBC (Bld) 6.5 % 2.0 - 10.0 % [facility] Neutrophils (Bld) [#/Vol] 3.0 10*3/uL 1.8 - 7.0 10*3/uL [facility] Neutrophils/100 WBC (Bld) 66.2 % 40.0 - 80.0 % [facility] Nucleated RBC/100 WBC (Bld) [Ratio] 0.0 % [facility] Platelet mean volume (Bld) [Entitic vol] 8.8 fL 7.4 - 12.4 fL [facility] Platelets (Bld) [#/Vol] 171 10*3/uL 140 - 440 10*3/uL [facility] RBC (Bld) [#/Vol] 3.31 10*6/uL Low 3.8 - 5.20 10*6/uL [facility] WBC (Bld) [#/Vol] 4.6 10*3/uL 3.6 - 10.7 10*3/uL [facility] Comprehensive metabolic 1998 panelon 06-14-2022 Albumin [Mass/Vol] 2.7 g/dL Low 3.5 - 5.0 g/dL [facility] ALP [Catalytic activity/Vol] 141 U/L High 38 - 126 U/L [facility] ALT [Catalytic activity/Vol] 152 U/L High 0 - 34 U/L [facility] Anion gap [Moles/Vol] 1 mmol/L Low 3 - 13 mmol/L [facility] AST [Catalytic activity/Vol] 218 U/L High 15 - 46 U/L [facility] Bilirubin [Mass/Vol] 0.3 mg/dL 0.2 - 1 .3 mg/dL [facility] Calcium [Mass/Vol] 8.1 mg/dL Low 8.4 - 10. 4 mg/dL [facility] Chloride [Moles/Vol] 107 mmol/L 98 - 10 7 mmol/L [facility] CO2 [Moles/Vol] 30 mmol/L 22 - 30 mmol/L [facility] Creatinine [Mass/Vol] 0.78 mg/dL 0.52 - 1.04 mg/dL [facility] GFR/1.73 sq M.predicted MDRD (S/P/Bld) [Vol rate/Area] 77.4 mL/min/{1.73_m2} - PINF [facility] Comment on above: Calculation based on the Chronic Kidney Disease Epidemiology Collaboration (CKD-EPI) equation refit without adjustment for race Glucose [Mass/Vol] 91 mg/dL 70 - 100 mg/dL [facility] Interpretation and review of laboratory results Abnormal [facility] Potassium [Moles/Vol] 3.6 mmol/L 3.5 - 5.1 mmol/L [facility] Protein [Mass/Vol] 6.4 g/dL 6.3 - 8.2 g/dL [facility] Sodium [Moles/Vol] 138 mmol/L 135 - 145 mmol/L [facility] Urea nitrogen [Mass/Vol] 22 mg/dL High 7 - 17 mg/dL [facility] Laboratory - Chemistry and C hemistry - challengeon 06-14-2022 Lactate [Moles/Vol] 0.7 mmol/L 0.7 - 2. 0 mmol/L [facility] No Panel Informationon 06-14 Interpretation and review of laboratory results Normal [facility] Acetaminophen [Mass/Vol]on 0 06-13-2022 Interpretation and review of laboratory results Abnormal [facility] CBC W Auto Differential pane l (Bld)Ordered By: Adela Giron on 06-13-2022 Basophils (Bld) [#/Vol] 0.0 10*3/uL 0.0 - 0.2 10*3/uL [facility] Basophils/100 WBC (Bld) 0.5 % 0.0 - 2.0 % [facility] Eosinophils (Bld) [#/Vol] 0.0 10*3/uL 0.0 - 0.5 10*3/uL [facility] Eosinophils/100 WBC (Bld) 0.5 % Low 1.0 - 6.0 % [facility] Erythrocyte distribution width (RBC) [Ratio] 14.6 % High 11.5 - 14.5 % [facility] Hematocrit (Bld) [Volume fraction] 28.7 % Low 35.0 - 47.0 % [facility] Hemoglobin (Bld) [Mass/Vol] 9.5 g/dL Low 11.7 - 16.0 g/dL [facility] Interpretation and review of laboratory results Abnormal [facility] Lymphocytes (Bld) [#/Vol] 1.3 10*3/uL 1.0 - 4.3 10*3/uL [facility] Lymphocytes/100 WBC (Bld) 19.0 % Low 20.0 - 40.0 % [facility] MCH (RBC) [Entitic mass] 26.9 pg 26.0 - 34.0 pg [facility] MCHC (RBC) [Mass/Vol] 33.0 % 32.0 - 36.0 % [facility] MCV (RBC) [Entitic vol] 81.7 fL 80.0 - 98.0 fL [facility] Monocytes (Bld) [#/Vol] 0.3 10*3/uL 0.0 - 0.8 10*3/uL [facility] Monocytes/100 WBC (Bld) 5.0 % 2.0 - 10.0 % [facility] Neutrophils (Bld) [#/Vol] 5.2 10*3/uL 1.8 - 7.0 10*3/uL [facility] Neutrophils/100 WBC (Bld) 75.0 % 40.0 - 80.0 % [facility] Nucleated RBC/100 WBC (Bld) [Ratio] 0.0 % [facility] Platelet mean volume (Bld) [Entitic vol] 9.2 fL 7.4 - 12.4 fL [facility] Platelets (Bld) [#/Vol] 188 10*3/uL 140 - 440 10*3/uL [facility] RBC (Bld) [#/Vol] 3.51 10*6/uL Low 3.8 - 5.20 10*6/uL [facility] WBC (Bld) [#/Vol] 6.9 10*3/uL 3.6 - 10.7 10*3/uL [facility] CT Head WO contraston 2022 1. No acute intracranial findings. 2. Probable chronic ischemic and atrophic changes. Report Dictated on Electronically Signed By: Niko Talley Electronically Signed Date/Time: 06/13/2022 3:16 PM [facility] Patient Name: PREMA VILLALPANDO : 1940 Exam Date/Time: 06/13/2022 15:08 Procedure: CT HEAD WO IV CONTRAST Ordering Provider: CINTRON NISHIT Reason For Exam: Head trauma, minor (Age >= 65y) CT BRAIN WITHOUT CONTRAST CLINICAL INDICATION: Head trauma, minor (Age >= 65y) TECHNIQUE: CT scan of the brain without IV contrast. Multiplanar reformations. Dose reduction was employed with automated exposure control. COMPARISON: May,. FINDINGS: No apparent mass or mass effect, hemorrhage, midline shift or hydrocephalus. No evidence of acute cortical infarct. No abnormal, extra-axial fluid or air collection. Patchy low density in the periventricular and subcortical white matter is nonspecific, but may relate to chronic small vessel ischemic change. 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 Focal encephalomalacia suggesting old ischemic change or infarct(s) in the right posterior parietal region. Mild-moderate, diffuse volume loss. Osseous calvarium grossly intact. [facility] Niko Talley MD - 06/13/2022 Patient Name: PREMA VILLALPANDO : 1940 Exam Date/Time: 06/13/2022 15:08 Procedure: CT HEAD WO IV CONTRAST Ordering Provider: CINTRON NISHIT Reason For Exam: Head trauma, minor (Age >= 67y) CT BRAIN WITHOUT CONTRAST CLINICAL INDICATION: Head trauma, minor (Age >= 65y) TECHNIQUE: CT scan of the brain without IV contrast. Multiplanar reformations. Dose reduction was employed with automated exposure control. COMPARISON: May,. FINDINGS: No apparent mass or mass effect, hemorrhage, midline shift or hydrocephalus. No evidence of acute cortical infarct. No abnormal, extra-axial fluid or air collection. Patchy low density in the periventricular and subcortical white matter is nonspecific, but may relate to chronic small vessel ischemic change. 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 Focal encephalomalacia suggesting old ischemic change or infarct(s) in the right posterior parietal region. Mild-moderate, diffuse volume loss. Osseous calvarium grossly intact. IMPRESSION: 1. No acute intracranial findings. 2. Probable chronic ischemic and atrophic changes. Report Dictated on Electronically Signed By: Niko Talley Electronically Signed Date/Time: 06/13/2022 3:16 PM EDT [facility] Radiology Study observation (narrative) [facility] CT Head WO contrastOrdered B y: Niko Talley on 06-13-2022 [facility] Work Phone: Comprehensive metabolic 1998 panelon 06-13-2022 Albumin [Mass/Vol] 3.4 g/dL Low 3.5 - 5.0 g/dL [facility] ALP [Catalytic activity/Vol] 176 U/L High 38 - 126 U/L [facility] ALT [Catalytic activity/Vol] 185 U/L High 0 - 34 U/L [facility] Anion gap [Moles/Vol] 3 mmol/L 3 - 13 mmol/L [facility] AST [Catalytic activity/Vol] 311 U/L High 15 - 46 U/L [facility] Bilirubin [Mass/Vol] 0.5 mg/dL 0.2 - 1 .3 mg/dL [facility] Calcium [Mass/Vol] 8.7 mg/dL 8.4 - 10. 4 mg/dL [facility] Chloride [Moles/Vol] 104 mmol/L 98 - 10 7 mmol/L [facility] CO2 [Moles/Vol] 27 mmol/L 22 - 30 mmol/L [facility] Creatinine [Mass/Vol] 0.80 mg/dL 0.52 - 1.04 mg/dL [facility] GFR/1.73 sq M.predicted MDRD (S/P/Bld) [Vol rate/Area] 75.1 mL/min/{1.73_m2} - PINF [facility] Comment on above: Calculation based on the Chronic Kidney Disease Epidemiology Collaboration (CKD-EPI) equation refit without adjustment for race Glucose [Mass/Vol] 114 mg/dL High 70 - 100 mg/dL [facility] Interpretation and review of laboratory results Abnormal [facility] Potassium [Moles/Vol] 3.7 mmol/L 3.5 - 5.1 mmol/L [facility] Protein [Mass/Vol] 7.5 g/dL 6.3 - 8.2 g/dL [facility] Sodium [Moles/Vol] 134 mmol/L Low 135 - 145 mmol/L [facility] Urea nitrogen [Mass/Vol] 26 mg/dL High 7 - 17 mg/dL [facility] Fibrin D-dimer FEU (PPP) [Ma ss/Vol]on 06-13-2022 Interpretation and review of laboratory results Normal [facility] D-Dimer va lues of <0.50 mg/L FEU can be used in combination with a pre-test probability model (e.g. Well's) to exclude pulmonary embolism (PE) disease, as well as an aid in the diagnosis of deep vein thrombosis (DVT). [facility] Hepatitis 1996 panel (S)on 0 06-13-2022 HAV IgM IA Ql Not detected Not Detected [facility] HBV core IgM IA Ql Not detected Not Detected [facility] HBV surface Ag IA Ql Not detected Not Detected [facility] HCV Ab IA Ql Not detected Not Detected [facility] Comment on above: Patients with DETECT ED Hepatitis C Ab results should have a new specimen submitted for supplemental testing with a Hepatitis C Quantitative RNA assay (viral load), if clinically indicated. Interpretation and review of laboratory results Normal [facility] Laboratory - Chemistry and C hemistry - challengeon 06-13-2022 TSH Qn 3.546 m[IU]/L [facility] Glucose [Mass/Vol] 114 mg/dL [facility] Troponin I.cardiac [Mass/Vol] ng/mL 0.000 - 0.034 ng/mL [facility] Laboratory - Chemistry and C hemistry - challengeOrdered By: Aylin Del Rosario on 06-13-2022 Lactate [Moles/Vol] 2.2 mmol/L Critically high 0.7 - 2.0 mmol/L [facility] Laboratory - Coagulationon 0 06-13-2022 Fibrin D-dimer FEU (PPP) [Mass/Vol] mg/L NINF - 0.50 mg/L [facility] PT Coag (Bld) [Time] 11.6 s 9.0 - 12.0 s [facility] Laboratory - Drug toxicology on 06-13-2022 Acetaminophen [Mass/Vol] ug/mL Low 10.0 - 30.0 ug/mL [facility] Natriuretic peptide B [Mass/ Vol]on 06-13-2022 Interpretation and review of laboratory results Abnormal [facility] Natriuretic peptide B (Bld) [Mass/Vol] 575 pg/mL High <20 - 300 [facility] No Panel Informationon 06-13 Interpretation and review of laboratory results Normal [facility] <50% stenosis in the right internal carotid artery. Heterogeneous and calcific plaque (proximal) in the right internal carotid artery. <50% stenosis in the left internal carotid artery. Heterogeneous and calcific plaque (proximal) in the left internal carotid artery. Normal antegrade flow involving the right vertebral artery. Normal antegrade flow involving the left vertebral artery. Elevated velocities in left subclavian artery which may be consistent with a more proximal stenosis. Correlate clinically. Right Carotid Common Carotid Artery: Patent. Internal Carotid Artery: <50% stenosis. Minimal, heterogeneous and calcific plaque (proximal). External Carotid Artery: Minimal, heterogeneous and calcific plaque (proximal). Vertebral Artery: Flow is antegrade. Subclavian Artery: Normal. Left Carotid Common Carotid Artery: Patent. Internal Carotid Artery: <50% stenosis. Minimal, heterogeneous and calcific plaque (proximal). External Carotid Artery: Minimal, heterogeneous and calcific plaque (prox). Vertebral Artery: Flow is antegrade. Subclavian Artery: Normal. Elevated velocities in subclavian artery [employer] Teacher Details A choudhary scale, color Doppler imaging and spectral Doppler analysis ultrasound was performed. During the study longitudinal and transverse views were obtained. Pulsed wave doppler was performed. The exam was performed with the patient in the supine position. Overall the study quality was good. CV CPACS No Panel InformationOrdered By: Aylin Del Rosario on 06-13-2022 Interpretation and review of laboratory results Abnormal [employer] No Panel InformationOrdered By: Any Palomino on 06-13-2022 Left CCA dist EDV 8.1 cm/s [employer] Phone: Left CCA dist PSV 75.4 cm/s [employer] Phone: Left CCA mid EDV 9.30 cm/s [employer] Phone: Left CCA mid PSV 92.60 cm/s [employer] Phone: Left CCA prox EDV 17.9 cm/s [employer] Phone: Left CCA prox PSV 119.5 cm/s [employer] Phone: Left ECA EDV 0.00 cm/s [employer] Phone: Left ECA PSV 74.6 cm/s [employer] Phone: Left ICA dist EDV 17.0 cm/s [facility] Work Phone: Left ICA dist PSV 74.6 cm/s [facility] Work Phone: Left ICA mid EDV 13.3 cm/s [facility] Work Phone: Left ICA mid PSV 77.0 cm/s [facility] Work Phone: Left ICA prox EDV 13.3 cm/s [facility] Work Phone: Left ICA prox PSV 63.6 cm/s [facility] Work Phone: Left ICA/CCA PSV 0.83 [facility] Work Phone: Left subclavian dist EDV 3.1 cm/s [facility] Work Phone: Left subclavian dist PSV 160.5 cm/s [facility] Work Phone: Left subclavian mid EDV 0.0 cm/s [facility] Work Phone: Left subclavian mid PSV 254.1 cm/s [facility] Work Phone: Left subclavian prox EDV 4.7 cm/s [facility] Work Phone: Left subclavian prox PSV 152.8 cm/s [facility] Work Phone: Left vertebral EDV 17.00 cm/s [facility] Work Phone: Left vertebral PSV 57.4 cm/s [facility] Work Phone: Right CCA dist EDV 14.0 cm/s [facility] Work Phone: Right cca dist PSV 73.9 cm/s [facility] Work Phone: Right CCA mid EDV 15.90 cm/s [facility] Work Phone: Right CCA mid PSV 86.70 cm/s [facility] Work Phone: Right CCA prox EDV 13.0 cm/s [facility] Work Phone: Right CCA prox PSV 80.4 cm/s [employer] Work Phone: Right ECA EDV 8.90 cm/s [employer] Work Phone: Right ECA PSV 106.9 cm/s [employer] Work Phone: Right ICA dist EDV 15.3 cm/s [employer] Work Phone: Right ICA dist PSV 71.9 cm/s [employer] Work Phone: Right ICA mid EDV 20.4 cm/s [employer] Work Phone: Right ICA mid PSV 80.9 cm/s [employer] Work Phone: Right ICA prox EDV 13.1 cm/s [employer] Work Phone: Right ICA prox PSV 62.5 cm/s [employer] Work Phone: Right ICA/CCA PSV 0.93 [employer] Work Phone: Right subclavian mid EDV 1.3 cm/s [employer] Work Phone: Right subclavian mid PSV 122.2 cm/s [employer] Work Phone: Right vertebral EDV 9.50 cm/s [employer] Work Phone: Right vertebral PSV 66.6 cm/s [employer] Work Phone: PT Coag (Bld) [Time]on 06-13 INR Coag (PPP) [Relative time] 1.1 {INR} 0.9 - 1.1 [employer] Comment on above: Recommended Anticoag ulant Therapy: SEE BELOW ----- INR of 2.0 - 3.0 : - Prophylaxis of Venous Thrombosis (high-risk surgery) - Treatment of Venous Thrombosis - Treatment of Pulmonary Embolism (Includes tissue heart valves, Acute Myocardial Infarction to prevent systemic embolism, Valvular Heart Disease, and Atrial Fibrillation) ----- INR of 2.5 - 3.5 : - Mechanical Prosthetic Valves (high risk) - If oral anticoagulant therapy is used to prevent Myocardial Infarction Interpretation and review of laboratory results Normal [facility] TSH Qnon 06-13-2022 Interpretation and review of laboratory results Normal [facility] Troponin I.cardiac [Mass/Vol ]on 06-13-2022 Interpretation and review of laboratory results Normal [facility] Patients with high l evels of Biotin oral intake (ie >5 mg/day) may have falsely decreased Troponin levels. [facility] XR Pelvis 1 or 2 Viewson No fracture or dislocation. Report Dictated on Electronically Signed By: Jovi Davis Electronically Signed Date/Time: 06/13/2022 3:33 PM EDT [facility] Patient Name: PREMA VILLALPANDO : 1940 Exam Date/Time: 06/13/2022 15:21 Procedure: XR PELVIS 1-2 VIEWS Ordering Provider: CINTRON NISHIT Reason For Exam: fall PELVIS: CLINICAL INDICATION: Fall, pain. TECHNIQUE: AP COMPARISON: None. FINDINGS: There is no evidence for fracture or dislocation. Mild bilateral hip osteoarthrosis. Degenerative changes in the visualized spine. No bone lesion is identified. There is no soft tissue abnormality. [facility] Jovi Davis MD - 06/13/2022 Patient Name: PREMA VILLALPANDO : 1940 Exam Date/Time: 06/13/2022 15:21 Procedure: XR PELVIS 1-2 VIEWS Ordering Provider: CINTRON NISHIT Reason For Exam: fall PELVIS: CLINICAL INDICATION: Fall, pain. TECHNIQUE: AP COMPARISON: None. FINDINGS: There is no evidence for fracture or dislocation. Mild bilateral hip osteoarthrosis. Degenerative changes in the visualized spine. No bone lesion is identified. There is no soft tissue abnormality. IMPRESSION: No fracture or dislocation. Report Dictated on Electronically Signed By: Jovi Davis Electronically Signed Date/Time: 06/13/2022 3:33 PM EDT [facility] Radiology Study observation (narrative) [facility] XR Pelvis 1 or 2 ViewsOrdere d By: Jovi Davis on 06-13-2022 [employer] Work Phone: Absolute lymphocyte countOrd ered By: ED PROVIDER on 06-01-2022 Lymphocytes Auto (Unsp spec) [#/Vol] 1.57 10*3/uL 0.83-4.51 [facility] Basophil percentageOrdered B y: Dr. Younger on 06-01-2022 Basophil percentage 0-5 SEEN /hpf 0-5 [facility] Bilirubin [Mass/Vol] 0.30 mg/dL 0.20-1.00 [facility] Comment on above: For patients on eltr ombopag therapy, use of Dimension [place] TBIL is not recommended. Protein [Mass/Vol] 7.8 g/dL 6.4-8.2 [facility] Basophil percentageOrdered B y: ED PROVIDER on 06-01-2022 Basophils/100 WBC (Bld) 0.7 % 0-1 [facility] Chloride [Moles/Vol] 105 mmol/L 98-107 [facility] Eosinophils/100 WBC (Bld) 1.1 % 0-5 [facility] Glucose [Mass/Vol] 124 mg/dL 74-106 [facility] Comment on above: Fasting Glucose resu lt from 100 to 125 mg/dL suggests IMPAIRED HOMEOSTASIS per A.D.A. criteria. Neutrophils (Bld) [#/Vol] 4.9 10*3/uL 2.0-7.7 [facility] Neutrophils/100 WBC (Bld) 70.1 % 47-70 [facility] Potassium [Moles/Vol] 3.5 mmol/L 3.5-5.1 [facility] Sodium [Moles/Vol] 137 mmol/L 136-145 [facility] WBC (Bld) [#/Vol] 7.0 10*3/uL 4.4-11.0 [facility] Bilirubin Test strip Ql (U)O rdered By: Dr. Younger on 06-01-2022 Bilirubin Ql (U) Negative Negative [facility] Blood erythrocytes count (nu mber/volume)Ordered By: ED PROVIDER on 06-01-2022 RBC (Bld) [#/Vol] 3.71 10*6/uL 4.2-5.4 [facility] Blood hemoglobin measurement (mass/volume)Ordered By: ED PROVIDER on 06-01-2022 Hemoglobin (Bld) [Mass/Vol] 10.0 g/dL 12.0-15.0 [facility] Blood lymphocytes/100 leukoc ytesOrdered By: ED PROVIDER on 06-01-2022 Lymphocytes/100 WBC (Bld) 22.3 % 19-41 [facility] Blood monocytes/100 leukocyt esOrdered By: ED PROVIDER on 06-01-2022 Monocytes/100 WBC (Bld) 5.5 % 0-10 [facility] Blood platelet mean volumeOr dered By: ED PROVIDER on 06-01-2022 Platelet mean volume (Bld) [Entitic vol] 10.5 fL 6.2-12.0 [facility] Determination of erythrocyte mean corpuscular volume (MCV)Ordered By: ED PROVIDER on 06-01-2022 MCV (RBC) [Entitic vol] 85.4 fL 81-99 [facility] Direct bilirubinOrdered By: Dr. Younger on 06-01-2022 Bilirubin.direct [Mass/Vol] 0.25 mg/dL 0.00-0.30 [facility] Hematocrit Auto (Bld) [Volum e fraction]Ordered By: ED PROVIDER on 06-01-2022 Hematocrit (Bld) [Volume fraction] 31.7 % 37-47 [facility] Influenza virus A and B and SARS-CoV-2 (COVID-19) Ag panel - Upper respiratory specimOrdered By: Dr. Younger on 06-01-2022 SARS-CoV-2 (COVID-19) RNA BALDO+probe Ql (Resp) [facility] Ketones Test strip Ql (U)Ord ered By: Dr. Younger on 06-01-2022 Ketones Ql (U) Negative Negative [facility] Laboratory - Chemistry and C hemistry - challengeOrdered By: Dr. Younger on 06-01-2022 ALP [Catalytic activity/Vol] 207 U/L 45-117 [facility] ALT [Catalytic activity/Vol] 69 U/L 13-56 [facility] Globulin (S) [Mass/Vol] 5.5 g/dL 2.2-4.2 [facility] Laboratory - Chemistry and C hemistry - challengeOrdered By: ED PROVIDER on 06-01-2022 CO2 [Moles/Vol] 31.0 mmol/L 21.0-32.0 [facility] Urea nitrogen/Creatinine [Mass ratio] 33.1 mg/mg 10-20 [facility] Laboratory - Hematology and Cell countsOrdered By: ED PROVIDER on 06-01-2022 Erythrocyte distribution width (RBC) [Entitic vol] 42.8 fL 35.1-43.9 [facility] Erythrocyte distribution width (RBC) [Ratio] 13.8 % 11.6-14.6 [facility] Immature granulocytes/100 WBC (Bld) 0.300 % 0.0-0.9 [facility] Comment on above: IG% - Immature Granu locytes (promyelocytes, myelocytes and metamyelocytes) > 1% indicates that a LEFT SHIFT is Present. MCH (RBC) [Entitic mass] 27.0 pg 27.0-32.0 [facility] Nucleated RBC/100 WBC (Bld) [Ratio] 0 % 0-5 [facility] MCHC Auto (RBC) [Mass/Vol]Or dered By: ED PROVIDER on 06-01-2022 MCHC (RBC) [Mass/Vol] 31.5 g/dL 32-36 [facility] Mucus LM Ql (Urine sed)Order ed By: Dr. Younger on 06-01-2022 Mucus Ql (Urine sed) 0 SEEN /hpf [facility] Nitrite Test strip Ql (U)Ord ered By: Dr. Younger on 06-01-2022 Nitrite Ql (U) Negative Negative [facility] No Panel InformationOrdered By: ED PROVIDER on 06-01-2022 Estimated GFR (MDRD) Amer 77 mL/min >60 [facility] Comment on above: GFR Calc Estimated GFR (MDRD) Non-Af Amer 64 mL/min >60 [facility] Comment on above: Non- GFR Calc Platelets bldOrdered By: ED PROVIDER on 06-01-2022 Platelets (Bld) [#/Vol] 248 10*3/uL 150-450 [facility] Protein Test strip Ql (U)Ord ered By: Dr. Younger on 06-01-2022 Protein Ql (U) 30 mg/dl Negative [facility] Serum or plasma albumin blanco urement (mass/volume)Ordered By: Dr. Younger on 06-01-2022 Albumin [Mass/Vol] 2.3 g/dL 3.2-5.0 [facility] Serum or plasma calcium blanco urement (mass/volume)Ordered By: ED PROVIDER on 06-01-2022 Calcium [Mass/Vol] 8.6 mg/dL 8.5-10.1 [facility] Serum or plasma creatinine m easurement (mass/volume)Ordered By: ED PROVIDER on 06-01-2022 Creatinine [Mass/Vol] 0.91 mg/dL 0.55-1.02 [facility] Comment on above: The validity of the calculated GFR & GFRAA in patients over 70 years has not been determined. Clinical correlation is essential. Serum or plasma urea nitroge n measurement (mass/volume)Ordered By: ED PROVIDER on 06-01-2022 Urea nitrogen [Mass/Vol] 30 mg/dL 7-18 [facility] Squamous epithelial cells de tection in urine sediment by light microscopyOrdered By: Dr. Younger on 06-01-2022 Epithelial cells.squamous LM Ql (Urine sed) 0-5 SEEN /hpf 5-10 [facility] Thin prep Papanicolaou smear with manual screeningOrdered By: Dr. Younger on 06-01-2022 Thin prep Papanicolaou smear with manual screening 75 U/L 15-37 [facility] Thin prep Papanicolaou smear with manual screeningOrdered By: ED PROVIDER on 06-01-2022 Thin prep Papanicolaou smear with manual screening 1 5-15 [facility] Urine blood detectionOrdered By: Dr. Younger on 06-01-2022 RBC Ql (U) Negative Negative [facility] RBC Ql (U) 0 SEEN /hpf 0-5 [facility] Urine clarityOrdered By: Dr. Younger on 06-01-2022 Clarity (U) Sl. Cloudy Clear [facility] Urine color determinationOrd ered By: Dr. Younger on 06-01-2022 Color (U) Yellow Yellow [facility] Urine glucose detectionOrder ed By: Dr. Younger on 06-01-2022 Glucose Ql (U) Normal mg/dl Normal [facility] Urine leukocyte esterase det ection by dipstickOrdered By: Dr. Younger on 06-01-2022 Leukocyte esterase Test strip Ql (U) 25 /ul Negative [facility] Urine pHOrdered By: Dr. Jacqueline delgado on 06-01-2022 pH (U) 5.0 [pH] 5.0 - 8.0 [facility] Urine sediment bacteria coun t by microscopy (number/high power field)Ordered By: Dr. Younger on 06-01-2022 Bacteria LM.HPF (Urine sed) [#/Area] 0 /[HPF] None Seen [facility] Urine specific gravity measu rementOrdered By: Dr. Younger on 06-01-2022 Specific gravity (U) [Rel density] 1.015 1.002-1.030 [facility] Urobilinogen Auto test strip Ql (U)Ordered By: Dr. Younger on 06-01-2022 Urobilinogen Ql (U) 1 mg/dl Normal [facility] Absolute lymphocyte countOrd ered By: Dr. Pack on 05-13-2022 Lymphocytes Auto (Unsp spec) [#/Vol] 1.03 10*3/uL 0.83-4.51 [facility] Basophil percentageOrdered B y: Dr. Pack on 05-13-2022 Basophils/100 WBC (Bld) 0.8 % 0-1 [facility] Chloride [Moles/Vol] 106 mmol/L 98-107 [facility] Eosinophils/100 WBC (Bld) 4.1 % 0-5 [facility] Glucose [Mass/Vol] 102 mg/dL 74-106 [facility] Comment on above: Fasting Glucose resu lt from 100 to 125 mg/dL suggests IMPAIRED HOMEOSTASIS per A.D.A. criteria. Neutrophils (Bld) [#/Vol] 3.0 10*3/uL 2.0-7.7 [facility] Neutrophils/100 WBC (Bld) 61.7 % 47-70 [facility] Potassium [Moles/Vol] 3.9 mmol/L 3.5-5.1 [facility] Sodium [Moles/Vol] 139 mmol/L 136-145 [facility] WBC (Bld) [#/Vol] 4.8 10*3/uL 4.4-11.0 [facility] Blood erythrocytes count (nu mber/volume)Ordered By: Dr. Pack on 05-13-2022 RBC (Bld) [#/Vol] 3.19 10*6/uL 4.2-5.4 [facility] Blood hemoglobin measurement (mass/volume)Ordered By: Dr. Pack on 05-13-2022 Hemoglobin (Bld) [Mass/Vol] 8.7 g/dL 12.0-15.0 [facility] Blood lymphocytes/100 leukoc ytesOrdered By: Dr. Pack on 05-13-2022 Lymphocytes/100 WBC (Bld) 21.4 % 19-41 [facility] Blood monocytes/100 leukocyt esOrdered By: Dr. Pack on 05-13-2022 Monocytes/100 WBC (Bld) 11.8 % 0-10 [facility] Blood platelet mean volumeOr dered By: Dr. Pack on 05-13-2022 Platelet mean volume (Bld) [Entitic vol] 11.9 fL 6.2-12.0 [facility] Determination of erythrocyte mean corpuscular volume (MCV)Ordered By: Dr. Pack on 05-13-2022 MCV (RBC) [Entitic vol] 89.0 fL 81-99 [facility] Glucose Glucometer (BldC) [M ass/Vol]Ordered By: Dr. Pack on 05-13-2022 Glucose [Mass/Vol] 131 mg/dL 74-106 [facility] Comment on above: MANAGEMENT OF PATIEN T CARE PER NURSING PROTOCOL Hematocrit Auto (Bld) [Volum e fraction]Ordered By: Dr. Pack on 05-13-2022 Hematocrit (Bld) [Volume fraction] 28.4 % 37-47 [facility] INR in Blood by Coagulation assayOrdered By: Dr. Gill on 05-13-2022 INR Coag (Bld) [Relative time] 1.2 {INR} [facility] Iron measurement (mass/mass) Ordered By: Dr. Pack on 05-13-2022 Iron (Unsp spec) [Mass/Mass] 39 ug/dL 50-170 [facility] Laboratory - Chemistry and C hemistry - challengeOrdered By: Dr. Pack on 05-13-2022 CO2 [Moles/Vol] 28.0 mmol/L 21.0-32.0 [facility] Urea nitrogen/Creatinine [Mass ratio] 23.3 mg/mg 10-20 [facility] Laboratory - CoagulationOrde red By: Dr. Gill on 05-13-2022 aPTT Coag (Bld) [Time] 34.4 s 24.1-36.2 [facility] PT Coag (PPP) [Time] 14.7 s 11.7-14.9 [facility] Laboratory - Hematology and Cell countsOrdered By: Dr. Pack on 05-13-2022 Erythrocyte distribution width (RBC) [Entitic vol] 42.1 fL 35.1-43.9 [facility] Erythrocyte distribution width (RBC) [Ratio] 13.0 % 11.6-14.6 [facility] Immature granulocytes/100 WBC (Bld) 0.200 % 0.0-0.9 [facility] Comment on above: IG% - Immature Granu locytes (promyelocytes, myelocytes and metamyelocytes) > 1% indicates that a LEFT SHIFT is Present. MCH (RBC) [Entitic mass] 27.3 pg 27.0-32.0 [facility] Nucleated RBC/100 WBC (Bld) [Ratio] 0 % 0-5 [facility] MCHC Auto (RBC) [Mass/Vol]Or dered By: Dr. Pack on 05-13-2022 MCHC (RBC) [Mass/Vol] 30.6 g/dL 32-36 [facility] No Panel InformationOrdered By: Dr. Pack on 05-13-2022 Estimated Creatinine Clearance Calc 37.10 ml/min [facility] Estimated GFR (MDRD) Amer 82 mL/min >60 [facility] Comment on above: GFR Calc Estimated GFR (MDRD) Non-Af Amer 68 mL/min >60 [facility] Comment on above: Non- GFR Calc Total Iron Binding Capacity 406 ug/dL 250-450 [facility] Platelets bldOrdered By: Dr. Pack on 05-13-2022 Platelets (Bld) [#/Vol] 178 10*3/uL 150-450 [facility] Serum or plasma calcium blanco urement (mass/volume)Ordered By: Dr. Pack on 05-13-2022 Calcium [Mass/Vol] 9.1 mg/dL 8.5-10.1 [facility] Serum or plasma creatinine m easurement (mass/volume)Ordered By: Dr. Pack on 05-13-2022 Creatinine [Mass/Vol] 0.86 mg/dL 0.55-1.02 [facility] Comment on above: The validity of the calculated GFR & GFRAA in patients over 70 years has not been determined. Clinical correlation is essential. Serum or plasma ferritin ellen surement (mass/volume)Ordered By: Dr. Pack on 05-13-2022 Ferritin [Mass/Vol] 17 ng/mL 8-252 [facility] Serum or plasma iron saturat ion measurement (mass fraction)Ordered By: Dr. Pack on 05-13-2022 Iron saturation [Mass fraction] 9.6 % 15.0-55.0 [facility] Serum or plasma urea nitroge n measurement (mass/volume)Ordered By: Dr. Pack on 05-13-2022 Urea nitrogen [Mass/Vol] 20 mg/dL 7-18 [facility] Thin prep Papanicolaou smear with manual screeningOrdered By: Dr. Pack on 05-13-2022 Thin prep Papanicolaou smear with manual screening 5 5-15 [facility] Whole blood hemoglobin A1c/t otal hemoglobin ratio (mass fraction)Ordered By: Dr. Gill on 05-13-2022 HbA1c (Bld) [Mass fraction] 5.7 % 3.8-5.6 [facility] Comment on above: Normal < 5.7 % Predi abetic 5.7 - 6.4 % Diabetic >or= 6.5 % Please note range changes. Laboratory - Chemistry and C hemistry - challengeon 02-23-2022 Glucose [Mass/Vol] 119 mg/dL High 70 - 100 mg/dL [facility] No Panel Informationon 02-23 Interpretation and review of laboratory results Abnormal [facility] Performed by: JOSE JUAN ID: [id number] [facility] CT Head or Brain w/o Contras ton 05-13-2021 CT Head or Brain w/o Contrast [facility]: [id number] Tom[facility] ACCESSION EXAM DATE/TIME PROCEDURE ORDERING PROVIDER [id number] 05/13/2021 16:[address] Head or Brain w/o ROYCE KOEHLER Contrast CPT code 83218 Reason For Exam (CT Head or Brain w/o Contrast) alzheimer's disease with late onset Report HEAD CT WITHOUT IV CONTRAST History: Alzheimer's, head injury Comparison: None available Technique: Multislice volume acquisition axial CT sections were obtained from the base to the vertex of the brain without IV contrast enhancement. Multiplanar sagittal and coronal reconstructed images also obtained. Findings: There is mild brain atrophy with prominent cortical sulci, fissures, and ventricles. There are bilateral periventricular and subcortical hypodensities suggesting chronic ischemic white matter changes. There is linear anterior left temporal dural calcification. There is no intracranial hemorrhage, mass effect, or midline shift in the brain. The exam is limited without IV contrast enhancement. There are carotid siphons and vertebral arteries calcifications. The visualized parts of the paranasal sinuses and mastoid air cells are clear. IMPRESSION: Brain atrophy. Chronic ischemic white matter changes. No evidence of acute intracranial process. Report Dictated on Final Dictating Physician: MD RHOADES AHMAD Signed Date and Time: 05/14/2021 8:12 am Signed by: MD RHOADES AHMAD Transcribed Date and Time: 05/14/2021 8:13 Normal [facility] Comp Metabolic Panelon 12-30 ALP [Catalytic activity/Vol] 157 U/L High 38-126 [facility] Comment on above: Performed By: #### C MP3 #### [facility] [address] [place] [address] ALT [Catalytic activity/Vol] 45 U/L High 0-34 [facility] Comment on above: Result Comment: The ALT test is performed by an updated assay method. Please note that the reference intervals have been changed and are now sex specific. Performed By: #### C MP3 #### [facility] [address] [place] [address] Calcium [Mass/Vol] 10.0 mg/dL Normal 8.4-10.4 [facility] Comment on above: Performed By: #### C MP3 #### [facility] [address] [place] [address] Glucose [Mass/Vol] 109 mg/dL High 70-100 [facility] Comment on above: Performed By: #### C MP3 #### [facility] [address] [place] [address] Urea nitrogen [Mass/Vol] 19 mg/dL Normal 9-20 [facility] Comment on above: Performed By: #### C MP3 #### [facility] [address] [place] [address] Anion gap [Moles/Vol] 2 mmol/L Low 3-13 [facility] Comment on above: Performed By: #### C MP3 #### [facility] [address] [place] [address] AST [Catalytic activity/Vol] 65 U/L High 15-46 [facility] [facility] Comment on above: Performed By: #### C MP3 #### [facility] [address] [place] [address] Bilirubin [Mass/Vol] 0.4 mg/dL Normal 0.2-1.3 [facility] Comment on above: Performed By: #### C MP3 #### [facility] [address] [place] [address] CO2 [Moles/Vol] 34 mmol/L High 22-30 [facility] Comment on above: Performed By: #### C MP3 #### [facility] [address] [place] [address] Creatinine [Mass/Vol] 0.96 mg/dL Normal 0.52-1.25 [facility] Comment on above: Performed By: #### C MP3 #### [facility] [address] [place] [address] GFR/1.73 sq M.predicted among blacks MDRD (S/P/Bld) [Vol rate/Area] 65.6 mL/min/{1.73_m2} Normal >60 [facility] Comment on above: Performed By: #### C MP3 #### [facility] [address] [place] [address] GFR/1.73 sq M.predicted among non-blacks MDRD (S/P/Bld) [Vol rate/Area] 56.6 mL/min/{1.73_m2} Abnormal >60 [facility] Comment on above: Result Comment: KDIG O guidelines provide the following GFR categories: Stage GFR(ml/min/1.73 m2) Terms G1 >=90 Normal or high G2 60-89 Mildly decreased* G3a 45-59 Mildly to moderately decreased G3b 30-44 Moderately to severely decreased G4 15-29 Severely decreased G5 <15 Kidney failure *Relative to young adult level. In the absence of evidence of kidney damage, neither GFR category G1 nor G2 fulfill the criteria for CKD. The CKD-EPI equation is validated in individuals 18 years of age and older. Currently the best equation for estimating glomerular filtration rate (GFR) from serum creatinine in children is the Bedside Oneal equation. It is less accurate in patients with extremes of muscle mass, restriction of dietary protein, ingestion of creatine, extra-renal metabolism of creatinine, or treatment with medications that affect renal tubular creatinine secretion. Performed By: #### C MP3 #### [facility] [address] [place] [address] Protein [Mass/Vol] 7.7 g/dL Normal 6.3-8.2 [facility] Comment on above: Performed By: #### C MP3 #### [facility] [address] [place] [address] Potassium [Moles/Vol] 3.7 mmol/L Normal 3.5-5.1 [facility] Comment on above: Performed By: #### C MP3 #### [facility] [address] [place] [address] Sodium [Moles/Vol] 142 mmol/L Normal 135-145 [facility] Comment on above: Performed By: #### C MP3 #### [facility] [address] [place] [address] Albumin [Mass/Vol] 4.0 g/dL Normal 3.5-5.0 [facility] Comment on above: Performed By: #### C MP3 #### [facility] [address] [place] [address] Chloride [Moles/Vol] 105 mmol/L Normal 98-107 [facility] Comment on above: Performed By: #### C MP3 #### [facility] [address] [place] [address] Hemogramon 11-08-2020 Erythrocyte distribution width (RBC) [Ratio] 12.5 % Normal 11.5-14.5 [facility] Comment on above: Performed By: #### H EMOG, LIPD2 #### [facility] [address] [place] [address] Hematocrit (Bld) [Volume fraction] 37.0 % Normal 35.0-47.0 [facility] Comment on above: Performed By: #### H EMOG, LIPD2 #### [facility] [address] [place] [address] Hemoglobin (Bld) [Mass/Vol] 12.6 g/dL Normal 11.7-16.0 [facility] Comment on above: Performed By: #### H EMOG, LIPD2 #### [facility] [address] [place] [address] MCH (RBC) [Entitic mass] 31.7 pg Normal 26.0-34.0 [facility] Comment on above: Performed By: #### H EMOG, LIPD2 #### [facility] [address] [place] [address] MCHC 34.1 % Normal 32.0-36.0 [facility] Comment on above: Performed By: #### H EMOG, LIPD2 #### [facility] [address] [place] [address] MCV (RBC) [Entitic vol] 92.9 fL Normal 79.0-98.0 [facility] Comment on above: Performed By: #### H EMOG, LIPD2 #### [facility] [address] [place] [address] Platelet mean volume (Bld) [Entitic vol] 9.4 fL Normal 7.4-10.4 [facility] Comment on above: Performed By: #### H EMOG, LIPD2 #### [facility] [address] [place] [address] Platelets (Bld) [#/Vol] 208 10*3/uL Normal 140-440 [facility] Comment on above: Performed By: #### H EMOG, LIPD2 #### [facility] [address] [place] [address] RBC (Bld) [#/Vol] 3.98 10*6/uL Normal 3.80-5.20 [facility] Comment on above: Performed By: #### H EMOG, LIPD2 #### [facility] [address] [place] [address] WBC (Bld) [#/Vol] 7.3 10*3/uL Normal 3.6-10.7 [facility] Comment on above: Performed By: #### H EMOG, LIPD2 #### [facility] [address] [place] [address] Lipid Panelon 11-08-2020 Chol/HDL 2 Normal [facility] Comment on above: Result Comment: Ref Range: < 3 Low Risk for CHD 3-6 Mod Risk for CHD > 6 High Risk for CHD Performed By: #### H EMOG, LIPD2 #### [facility] [address] [place] [address] Cholesterol in HDL [Mass/Vol] 61 mg/dL High 40-60 [facility] Comment on above: Performed By: #### H EMOG, LIPD2 #### [facility] [address] [place] [address] Low Density Lipoprotein 53 mg/dL Normal <100 [facility] Comment on above: Performed By: #### H EMOG, LIPD2 #### [facility] [address] [place] [address] Triglyceride [Mass/Vol] 63 mg/dL Normal <150 [facility] Comment on above: Performed By: #### H EMOG, LIPD2 #### [facility] [address] [place] [address] Cholesterol [Mass/Vol] 127 mg/dL Normal < 200 [facility] Comment on above: Performed By: #### H EMOG, LIPD2 #### [facility] [address] [place] [address] US ABDOMEN LIMITEDOrdered By : Mita Morton on 08-20-2020 Patient Name: PREMA VILLALPANDO Ultrasound ACCESSION EXAM DATE/TIME PROCEDURE ORDERING PROVIDER [id number] 08/20/2020 09:18 EDT US Abdomen Limited ESTERLE, DO, MITA CPT code 34277 Reason For Exam (US Abdomen Limited) elevated lft Report RIGHT UPPER QUADRANT ULTRASOUND CLINICAL INDICATION: Elevated LFTs Multiple sonographic images of the gallbladder and right upper quadrant of the abdomen were obtained. COMPARISON: 04/04/2019 FINDINGS: The gallbladder has been removed. The liver is normal in size. Parenchymal echotexture is normal. No focal hepatic lesions are seen. There is no intrahepatic biliary dilatation. The common bile duct is normal, measuring 6 mm. The pancreas appears grossly normal. Survey views of the right kidney are unremarkable. There is no hydronephrosis. IMPRESSION: Prior cholecystectomy. Otherwise unremarkable right upper quadrant ultrasound. Report Dictated on --- Final --- Dictating Physician: MD NORIEGA JONATHAN R Signed Date and Time: 08/20/2020 9:16 am Signed by: MD NORIEGA JONATHAN R Transcribed Date and Time: 08/20/2020 9:18 [facility] Work Phone: [facility], [facility] Results From [facility] - 08/20/2020 9:18 AM EDT Patient Name: PREMA VILLALPANDO Ultrasound ACCESSION EXAM DATE/TIME PROCEDURE ORDERING PROVIDER [id number] 08/20/2020 09:18 EDT US Abdomen Limited EVETTELE, DO, MITA CPT code 75880 Reason For Exam (US Abdomen Limited) elevated lft Report RIGHT UPPER QUADRANT ULTRASOUND CLINICAL INDICATION: Elevated LFTs Multiple sonographic images of the gallbladder and right upper quadrant of the abdomen were obtained. COMPARISON: 04/04/2019 FINDINGS: The gallbladder has been removed. The liver is normal in size. Parenchymal echotexture is normal. No focal hepatic lesions are seen. There is no intrahepatic biliary dilatation. The common bile duct is normal, measuring 6 mm. The pancreas appears grossly normal. Survey views of the right kidney are unremarkable. There is no hydronephrosis. IMPRESSION: Prior cholecystectomy. Otherwise unremarkable right upper quadrant ultrasound. Report Dictated on --- Final --- Dictating Physician: MD NORIEGA JONATHAN R Signed Date and Time: 08/20/2020 9:16 am Signed by: MD NORIEGA JONATHAN R Transcribed Date and Time: 08/20/2020 9:18 [facility] Work Phone: [facility] Work Phone: US Abdomen Limitedon 021 US Abdomen Limited [id number] Ultrasound ACCESSION EXAM DATE/TIME PROCEDURE ORDERING PROVIDER [id number] 08/20/2020 09:18 EDT US Abdomen Limited DO MORTON LISA CPT code 02688 Reason For Exam (US Abdomen Limited) elevated lft Report RIGHT UPPER QUADRANT ULTRASOUND CLINICAL INDICATION: Elevated LFTs Multiple sonographic images of the gallbladder and right upper quadrant of the abdomen were obtained. COMPARISON: 04/04/2019 FINDINGS: The gallbladder has been removed. The liver is normal in size. Parenchymal echotexture is normal. No focal hepatic lesions are seen. There is no intrahepatic biliary dilatation. The common bile duct is normal, measuring 6 mm. The pancreas appears grossly normal. Survey views of the right kidney are unremarkable. There is no hydronephrosis. IMPRESSION: Prior cholecystectomy. Otherwise unremarkable right upper quadrant ultrasound. Report Dictated on Final Dictating Physician: MD NORIEGA JONATHAN R Signed Date and Time: 08/20/2020 9:16 am Signed by: MD NORIEGA JONATHAN R Transcribed Date and Time: 08/20/2020 9:18 Normal [facility] Hepatic Functionon 1 ALP [Catalytic activity/Vol] 173 U/L High 38-126 [facility] Comment on above: Performed By: #### L FT3 #### [facility] [address] [place] [address] ALT [Catalytic activity/Vol] 62 U/L High 0-34 [facility] Comment on above: Result Comment: The ALT test is performed by an updated assay method. Please note that the reference intervals have been changed and are now sex specific. Performed By: #### L FT3 #### [facility] [address] [place] [address] AST [Catalytic activity/Vol] 76 U/L High 15-46 [facility] Comment on above: Performed By: #### L FT3 #### [facility] [address] [place] [address] Bilirubin [Mass/Vol] 0.5 mg/dL Normal 0.2-1.3 [facility] Comment on above: Performed By: #### L FT3 #### [facility] [address] [place] [address] Bilirubin.indirect [Mass/Vol] 0.0 mg/dL Normal 0.0-0.3 [facility] Comment on above: Performed By: #### L FT3 #### [facility] [address] [place] [address] Protein [Mass/Vol] 7.5 g/dL Normal 6.3-8.2 [facility] Comment on above: Performed By: #### L FT3 #### [facility] [address] [place] [address] Albumin [Mass/Vol] 4.0 g/dL Normal 3.5-5.0 [facility] Comment on above: Performed By: #### L FT3 #### [facility] [address] [place] [address] Medical Cytology 1 Medical Cytology [facility] [id number] DEPARTMENT OF PATHOLOGY AND [facility] LABORATORY MEDICINE [address] [place], [place] [address], [place] [address] FINAL MEDICAL CYTOLOGY REPORT NAME: PREMA VILLALPANDO : 1940 79 Y F BILLING NO.: [id number] LOCATION: [facility] ULTRASOUND PROCEDURE 06/04/2020 DATE: PHYSICIAN: BETSY REEVES PA-C RECEIVED DATE: 06/04/2020 ATTENDING: BETSY REEVES PA-C REPORT DATE: 06/05/2020 COPIES TO: EDIS MARIA D.O. CLINICAL DATA: Left thyroid nodule DIAGNOSIS Diagnostic Category: BENIGN. Benign follicular nodule. Scant groups of benign-appearing follicular cells present in a background of peripheral blood elements. Comment: According to the [place] System for Reporting Thyroid Cytopathology, the implied risk of malignancy associated with the general categories are as follows: Benign 0-3%, Atypia of Undetermined Significance 5-15%, Follicular Lesion of Undetermined Significance 5-15%, Follicular Neoplasm or Suspicious for a Follicular Neoplasm 15-30%, Suspicious for Malignancy 60-75% and Malignancy 97-99%. Malignancy rates at individual institutions may differ from these published rates. SPECIMEN: FINE NEEDLE ASPIRATION-THYROID, LEFT PROCEDURE(S): FINE NEEDLE ASPIRATION GROSS DESCRIPTION: 30 ml, Idalia fluid, w/cytolyt. Materials Prepared & Examined: Cell Blocks . . . . . . . . . . . . 1 Smear Slides . . . . . . . . . . . 8 Special Stains . . . . . . . . . . DQ , KB5 Screened by MEDINA ALAS M.D. Printed June 05, 2020 at 10:20:18 PM Disclaimer The following statement applies to all immunohistochemistry, in situ hybridization, molecular studies, and immunofluorescence testing. The use of one or more reagents in the above tests is regulated as an analyte specific reagent (ASR). These tests were developed and their performance characteristics determined by the clinical laboratories of [facility]. They have not been cleared by the US Food and Drug Administration (FDA). The FDA has determined that such clearance or approval is not necessary. All the above immunostains were performed on paraffin embedded tissue. Appropriate positive and negative controls (where applicable) were run in parallel with the patient's specimen; these controls showed expected staining pattern, with acceptable intensity of staining. Immunohistochemical assays have not been validated on decalcified tissues. Results should be interpreted with caution given the raised possibility of false negativity on decalcified specimens. Case reviewed at [place] [address] [place] [address]. DEPARTMENT OF PATHOLOGY AND LABORATORY MEDICINE [place], [place] [address] [email or web address] Normal [facility] US Biopsy Thyroidon 06-05-19 21 US Biopsy Thyroid Patient Name: PREMA VILLALPANDO Ultrasound ACCESSION EXAM DATE/TIME PROCEDURE ORDERING PROVIDER [id number] 06/04/2020 11:17 EDT US Biopsy Thyroid POONAM REEVES AMBER CPT code 65805 11496 Reason For Exam (US Biopsy Thyroid) left thyroid nodule 1.9cm not previously biopsied Report ULTRASOUND GUIDED THYROID BIOPSY: CLINICAL INDICATION: Left inferior thyroid nodule. Status post right thyroidectomy. PROCEDURE: The patient (or guardian) agrees to proceed with the procedure, and understands the benefits and risks given their co-morbidities/chronic conditions and quality of life. This includes the discussion regarding the risk of jayshree COVID-19 and the impact of that possibility on the post-recovery process. The skin was sterilely prepared and local anesthesia was applied. Digital images of the left thyroid gland demonstrate 1.3 x 1.6 x 1.9 cm isoechoic inferior left thyroid nodule. There is an adjacent left inferior thyroid nodule which measures up to 1.1 cm. A 25 gauge biopsy needle was advanced under ultrasound guidance into the 1.9 cm inferior left thyroid nodule. A total of 4 needle passes were made. Cytology specimen was submitted for pathologic evaluation. The patient tolerated procedure well. IMPRESSION: Technically successful fine needle aspiration of left inferior thyroid nodule. Report Dictated on Final Dictating Physician: EDIS MARIA DO, I Signed Date and Time: 06/04/2020 12:12 pm Signed by: EDIS MARIA DO, I Transcribed Date and Time: 06/04/2020 12:14 Normal [facility] US GUIDED THYROID BIOPSY PER CUTANEOUSOrdered By: Betsy Reeves on 06-04-2020 Patient Name: PREMA VILLALPANDO Ultrasound ACCESSION EXAM DATE/TIME PROCEDURE ORDERING PROVIDER [id number] 06/04/2020 11:17 EDT US Biopsy Thyroid POONAM REEVES AMBER CPT code 97386 57064 Reason For Exam (US Biopsy Thyroid) left thyroid nodule 1.9cm not previously biopsied Report ULTRASOUND GUIDED THYROID BIOPSY: CLINICAL INDICATION: Left inferior thyroid nodule. Status post right thyroidectomy. PROCEDURE: The patient (or guardian) agrees to proceed with the procedure, and understands the benefits and risks given their co-morbidities/chronic conditions and quality of life. This includes the discussion regarding the risk of jayshree COVID-19 and the impact of that possibility on the post-recovery process. The skin was sterilely prepared and local anesthesia was applied. Digital images of the left thyroid gland demonstrate 1.3 x 1.6 x 1.9 cm isoechoic inferior left thyroid nodule. There is an adjacent left inferior thyroid nodule which measures up to 1.1 cm. A 25 gauge biopsy needle was advanced under ultrasound guidance into the 1.9 cm inferior left thyroid nodule. A total of 4 needle passes were made. Cytology specimen was submitted for pathologic evaluation. The patient tolerated procedure well. IMPRESSION: Technically successful fine needle aspiration of left inferior thyroid nodule. Report Dictated on --- Final --- Dictating Physician: EDIS MARIA DO, I Signed Date and Time: 06/04/2020 12:12 pm Signed by: EDIS MARIA DO, I Transcribed Date and Time: 06/04/2020 12:14 [facility] Work Phone: Kash, [facility] Incoming Radiology Results From [facility] - 06/04/2020 12:14 PM EDT Patient Name: PREMA VILLALPANDO Ultrasound ACCESSION EXAM DATE/TIME PROCEDURE ORDERING PROVIDER [id number] 06/04/2020 11:17 EDT US Biopsy Thyroid NOEMITyronePOONAMBETSY CPT code 95464 84907 Reason For Exam (US Biopsy Thyroid) left thyroid nodule 1.9cm not previously biopsied Report ULTRASOUND GUIDED THYROID BIOPSY: CLINICAL INDICATION: Left inferior thyroid nodule. Status post right thyroidectomy. PROCEDURE: The patient (or guardian) agrees to proceed with the procedure, and understands the benefits and risks given their co-morbidities/chronic conditions and quality of life. This includes the discussion regarding the risk of jayshree COVID-19 and the impact of that possibility on the post-recovery process. The skin was sterilely prepared and local anesthesia was applied. Digital images of the left thyroid gland demonstrate 1.3 x 1.6 x 1.9 cm isoechoic inferior left thyroid nodule. There is an adjacent left inferior thyroid nodule which measures up to 1.1 cm. A 25 gauge biopsy needle was advanced under ultrasound guidance into the 1.9 cm inferior left thyroid nodule. A total of 4 needle passes were made. Cytology specimen was submitted for pathologic evaluation. The patient tolerated procedure well. IMPRESSION: Technically successful fine needle aspiration of left inferior thyroid nodule. Report Dictated on --- Final --- Dictating Physician: EDIS MARIA DO, I Signed Date and Time: 06/04/2020 12:12 pm Signed by: EDIS MARIA DO, I Transcribed Date and Time: 06/04/2020 12:14 [facility] Work Phone: US Thyroid/Parathyroidon US Thyroid/Parathyroid Patient Name: PREMA BEE Ultrasound ACCESSION EXAM DATE/TIME PROCEDURE ORDERING PROVIDER [id number] 05/21/2020 14:35 EDT US Parathyroid BIBI WYATT RYAN C CPT code 55003 Reason For Exam (US Parathyroid) Throid nodule follow up US Report ULTRASOUND THYROID: CLINICAL INDICATION: Thyroid nodules TECHNIQUE: Ultrasonographic evaluation of the thyroid COMPARISON: 10/18/2019 FINDINGS: RIGHT LOBE: Status post right hemithyroidectomy LEFT LOBE: 1.4 x 2.0 x 3.5 cm. Homogeneous echogenicity. There are three thyroid nodules, described below: Nodule Location: Superior left lobe Size: 0.8 x 1.6 x 1.7cm (AP x transverse x cephalocaudad) Echogenicity: Solid, hypoechoic Margins: well-circumscribed Calcifications: None identified TI-RADS category*: 4 - moderately suspicious Change since last exam: Unchanged and this was previously biopsied on 11/09/2019. Nodule Location: Inferior left lobe Size: 0.5 x 0.8 x 1.1cm (AP x transverse x cephalocaudad) Echogenicity: Mixed cystic and solid, hypoechoic Margins: well-circumscribed Calcifications: None identified TI-RADS category*: 3 - mildly suspicious Change since last exam: Unchanged Nodule Location: Inferior left lobe Size: 0.8 x 1.6 x 1.9cm (AP x transverse x cephalocaudad) Echogenicity: Solid, hypoechoic Margins: well-circumscribed Calcifications: None identified TI-RADS category*: 4 - moderately suspicious Change since last exam: Unchanged in size. The previously seen cystic component is no longer identified Cervical lymph nodes: None identified. IMPRESSION: 1. Stable previously biopsied and left TI-RADS 4 nodule. Additional left TI-RADS 4 nodule measuring 1.9 cm, which is unchanged in size but no longer demonstrates Ultrasound Report a cystic component. 2. Unchanged left TI-RADS 3 nodule. 3. Status post right hemithyroidectomy. *TI-RADS (2017) Reference: Chintan Castro. ACR Thyroid Imaging, Reporting and Data System (TI-RADS): White Paper of the ACR TI-RADS Committee. J Am [employer]. May 2016. Please note: There are other existing guidelines to classify thyroid nodules to determine need for FNA and this decision will be deferred to the ordering physician. Thyroid nodule details (add points for total score): Composition(points): 1 - mixed cystic and solid 2 - solid Echogenicity: 1 - hyperechoic or isoechoic 2 - hypoechoic 3 - very hypoechoic Shape: 3 - taller than wide Margin: 2 - lobulated or irregular 3 - extrathyroidal extension Echogenic foci: 1 - macrocalcifications 2 - rim calcification 3 - microcalcifications Risk for malignancy: TI-RADS 1 - 0 points - (benign) <2% risk TI-RADS 2 - 2 points - (not suspicious) <5% TI-RADS 3 - 3 points - (mildly suspicious) <5% - FNA when >/= 2.5cm. Follow when >1.5cm at 1, 3 and 5 years TI-RADS 4 - 4-6 points - (moderately suspicious) 5-20% - FNA when >/= 1.5cm. Follow when >1cm at 1, 2, 3 and 5 years TI-RADS 5 - 7+ points - (highly suspicious) >20% - FNA when >/= 1cm. Follow when >0.5cm every year for up to 5 years Notes: 1. There are other existing guidelines to classify thyroid nodules to determine need for FNA; and this decision will be deferred to the ordering physician. 2. Nodule vascularity is no longer considered a useful characteristic to assess risk for malignancy. 3. Score and follow a maximum of four nodules 4. Significant growth is increase in two dimensions each by 20% 5. Follow up scanning of less than 1yr is not warranted 6. FNA biopsy of no more than two nodules with highest TI-RADS levels Report Dictated on Final Dictating Physician: MD DAVIS NICHOLAS Signed Date and Time: 05/22/2020 11:56 am Signed by: MD DAVIS NICHOLAS Transcribed Date and Time: 05/22/2020 11:57 Normal [facility] XR KNEE RIGHT (MIN 4 VIEWS)o n 02-07-2020 [id number] Diagnostic Radiology ACCESSION EXAM DATE/TIME PROCEDURE ORDERING PROVIDER [id number] 02/07/2020 15:25 EST CR Knee Complete 4+ ESTERLE, DO, MITA Views Right CPT code 17762 Reason For Exam (CR Knee Complete 4+ Views Right) R knee pain, M25.561 Report CLINICAL INDICATION: Right knee pain. AP, lateral, tunnel, and patellar plain film views of the right knee were obtained. COMPARISON: None FINDINGS: Osseous structures appear demineralized. No acute fracture or dislocation. Mild medial joint space narrowing. No Chondrocalcinosis. IMPRESSION: Mild medial joint space narrowing. No acute bony abnormality. Report Dictated on --- Final --- Dictating Physician: MD ACEVEDO LAURA Signed Date and Time: 02/07/2020 4:44 pm Signed by: MD ACEVEDO LAURA Transcribed Date and Time: 02/07/2020 4:46 [place], [place] Kash, Lu Incoming Radiology Results From [facility] - 02/07/2020 4:46 PM EST Patient Name: PREMA VILLALPANDO [facility]#: [id number] Diagnostic Radiology ACCESSION EXAM DATE/TIME PROCEDURE ORDERING PROVIDER [id number] 02/07/2020 15:25 EST CR Knee Complete 4+ ESTERLE, DO, MITA Views Right CPT code 94396 Reason For Exam (CR Knee Complete 4+ Views Right) R knee pain, M25.561 Report CLINICAL INDICATION: Right knee pain. AP, lateral, tunnel, and patellar plain film views of the right knee were obtained. COMPARISON: None FINDINGS: Osseous structures appear demineralized. No acute fracture or dislocation. Mild medial joint space narrowing. No Chondrocalcinosis. IMPRESSION: Mild medial joint space narrowing. No acute bony abnormality. Report Dictated on --- Final --- Dictating Physician: MD ACEVEDO LAURA Signed Date and Time: 02/07/2020 4:44 pm Signed by: MD ACEVEDO LAURA Transcribed Date and Time: 02/07/2020 4:46 [place], [place] CT HEAD OR BRAIN W/O CONTRAS Ton 12-02-2019 CT HEAD OR BRAIN W/O CONTRAST ORIGINAL CT HEAD OR BRAIN W/O CONTRAST CLINICAL STATEMENT: INJURY. TECHNIQUE: Axial CT images from skull base to vertex without IV contrast. This exam was performed according to our departmental dose optimization program, and includes the following measures where applicable: automated exposure control, adjustment of the mAs and/or kVp according to patient size and/or exam, and an iterative reconstruction algorithm. COMPARISON: CT head 09/27/2019 FINDINGS: There is no acute intracranial hemorrhage, mass, mass effect or abnormal extra-axial fluid collection. There is no CT evidence of acute infarct. A focal hypodensity within the RIGHT lentiform nucleus posteriorly is unchanged. Chronic postischemic changes of the posterior RIGHT centrum semiovale is noted. The ventricles and sulci are age-appropriate. Scattered white matter hypodensities are nonspecific, but compatible with mild chronic microvascular angiopathy. Calcific atherosclerosis of the bilateral cavernous internal carotid arteries is noted. The skull base and calvarium demonstrate no abnormality. The visualized paranasal sinuses are clear. Included mastoid air cells are clear. A scalp hematoma is seen along the RIGHT forehead/supraorbital region.. IMPRESSION: No acute intracranial abnormality. Scalp hematoma along the RIGHT forehead/supraorbital region. I have personally reviewed the images of this examination and agree with the resident's findings and interpretation. Interpreted By: Gloria Thomason MD Preliminary Report By: Edna Fountain DO Electronically Signed By: Gloria Thomason MD Dictated Date: 12/02/2019 7:04:05 PM Prelim Date: 12/02/2019 7:09:58 PM Sign Date: 12/02/2019 7:26:15 PM Ordering Provider:Peter Swift [facility] ([place]) CT MAXILLOFACIAL W/O CONTRAS Ton 12-02-2019 CT MAXILLOFACIAL W/O CONTRAST ORIGINAL CT MAXILLOFACIAL W/O CONTRAST CLINICAL STATEMENT: INJURY. TECHNIQUE: Multiple-row detector helical CT examination of the facial bones without IV contrast. Axial, sagittal, and coronal reconstructed images. This exam was performed according to our departmental dose optimization program, and includes the following measures where applicable: automated exposure control, adjustment of the mAs and/or kVp according to patient size and/or exam, and an iterative reconstruction algorithm. COMPARISON: CT head from the same date FINDINGS: Apparent lucency seen within the mandible eccentric to the RIGHT on sagittal views is favored to be related to artifact. The facial bones including the mandible demonstrate no fracture or dislocation, and no evidence of aggressive osseous lesions. The globes demonstrate no acute traumatic abnormality. The extraocular muscles, intraconal fat, and extraconal fat are within normal limits. There is soft tissue swelling anterior to the RIGHT maxillary sinus and the RIGHT superior orbital rim extending up along the RIGHT frontal bone. There is also soft tissue induration overlying the RIGHT mandible. No lesion of the visualized skull base or calvarium is present. The tympanomastoid cavities are unopacified. There are no air-fluid levels in the paranasal sinuses. Degenerative changes are seen within the spine. There are a few scattered periapical lucencies. IMPRESSION: No maxillofacial fracture or intraorbital hematoma. RIGHT frontal and facial soft tissue swelling. I have personally reviewed the images of this examination and agree with the resident's findings and interpretation. Interpreted By: Gloria Thomason MD Preliminary Report By: Edna Fountain DO Electronically Signed By: Gloria Thomason MD Dictated Date: 12/02/2019 7:10:28 PM Prelim Date: 12/02/2019 7:17:27 PM Sign Date: 12/02/2019 8:18:14 PM Ordering Provider:Peter Siwft [facility] ([place]) CYTOLOGY, NON-GYNon 11-09-19 20 Cytology report Cyto stain.thin prep Doc (Cvx/Vag) SEE BELOW [facility], [address]-582 DEPARTMENT OF PATHOLOGY AND [facility] LABORATORY MEDICINE [address] [place] [id number] FINAL MEDICAL CYTOLOGY REPORT NAME: PREMA VILLALPANDO : 1940 79 Y F BILLING NO.: [id number] LOCATION: [facility] ULTRASOUND PROCEDURE 11/09/2019 DATE: PHYSICIAN: ZOE WYATT RECEIVED DATE: 11/09/2019 ATTENDING: ZOE WYATT REPORT DATE: 11/09/2019 COPIES TO: SHANICE RIVERA MD CLINICAL DATA: DIAGNOSIS Diagnostic Category: BENIGN. Benign follicular nodule, consistent with a colloid nodule. Many groups of follicular cells and colloid present. Comment: According to the [place] System for Reporting Thyroid Cytopathology, the implied risk of malignancy associated with the general categories are as follows: Benign 0-3%, Atypia of Undetermined Significance 5-15%, Follicular Lesion of Undetermined Significance 5-15%, Follicular Neoplasm or Suspicious for a Follicular Neoplasm 15-30%, Suspicious for Malignancy 60-75% and Malignancy 97-99%. Malignancy rates at individual institutions may differ from these published rates. SPECIMEN: FINE NEEDLE ASPIRATION-THYROID, LEFT PROCEDURE(S): FINE NEEDLE ASPIRATION GROSS DESCRIPTION: 15 ml, pink fluid, w/cytolyt. Materials Prepared & Examined: Monolayers . . . . . . . . . . . . 1 Smear Slides . . . . . . . . . . . 6 Special Stains . . . . . . . . . . , [facility] Screened by JENNY FERNANDEZ M.D. Printed November 09, 2019 at 4:33:03 PM Disclaimer The following statement applies to all immunohistochemistry, in situ hybridization, molecular studies, and immunofluorescence testing. The use of one or more reagents in the above tests is regulated as an analyte specific reagent (ASR). These tests were developed and their performance characteristics determined by the clinical laboratories of [facility]. They have not been cleared by the US Food and Drug Administration (FDA). The FDA has determined that such clearance or approval is not necessary. All the above immunostains were performed on paraffin embedded tissue. Appropriate positive and negative controls (where applicable) were run in parallel with the patient's specimen; these controls showed expected staining pattern, with acceptable intensity of staining. Immunohistochemical assays have not been validated on decalcified tissues. Results should be interpreted with caution given the raised possibility of false negativity on decalcified specimens. Case reviewed at [facility] [address] [place] [address]. DEPARTMENT OF PATHOLOGY AND LABORATORY MEDICINE [place], [place] [address] [place], [place] FINE NEEDLE ASPIRATIONon 11-09-2019 Patient Name: PREMA VILLALPANDO ---Ultrasound--- Exam Date/Time 11/09/2019 11:38:38 EDT Exam US Fine Needle Aspiration w/ Image Guide Ordering Physician BIBI WYATT RYAN C Accession Number [id number] CPT4 Codes 51600 () Reason For Exam Left sided thyroid nodule Ti-rads 4 Report CLINICAL HISTORY: Thyroid nodule. Procedures: Ultrasound-guided thyroid FNA. Physician: Dr. Rivera MEDICATIONS: Lidocaine. EBL: Minimal. Contrast: None. Specimen sent: FNA biopsies of a left thyroid nodule. COMPLICATIONS: None Procedural details: All of the risk, benefits, and alternative treatments were explained to the patient and informed consent was obtained and documented. The patient was brought into the ultrasound suite and placed in a supine position. The patient's thyroid was interrogated with ultrasound and a dominant thyroid nodule suitable for biopsy was identified. A timeout was performed. The overlying skin was then prepped and draped in the usual sterile fashion. The overlying subcutaneous tissues were anesthetized using 2 percent lidocaine. Under real-time ultrasound guidance, a 25-gauge 7.5 cm needle was advanced into a left thyroid lobe nodule. Four sets of FNA passes were performed. All needles were then removed and hemostasis obtained using manual pressure. FINDINGS: Dominant nodule within left thyroid lobe. Impression: Successful uncomplicated ultrasound-guided thyroid FNA. Report Dictated on --- Final --- Dictating Physician: MD RIVERA KEVIN Signed Date and Time: 11/09/2019 2:39 pm Signed by: MD RIVERA KEVIN Transcribed Date and Time: 11/09/2019 2:40 [place], [place] Kash, [facility] 11[facility]09/2019 2:40 PM EDT Patient Name: PREMA VILLALPANDO ---Ultrasound--- Exam Date/Time 11/09/2019 11:38:38 EDT Exam US Fine Needle Aspiration w/ Image Guide Ordering Physician BIBI WYATT RYAN C Accession Number [id number] CPT4 Codes 71845 () Reason For Exam Left sided thyroid nodule Ti-rads 4 Report CLINICAL HISTORY: Thyroid nodule. Procedures: Ultrasound-guided thyroid FNA. Physician: Dr. Rivera MEDICATIONS: Lidocaine. EBL: Minimal. Contrast: None. Specimen sent: FNA biopsies of a left thyroid nodule. COMPLICATIONS: None Procedural details: All of the risk, benefits, and alternative treatments were explained to the patient and informed consent was obtained and documented. The patient was brought into the ultrasound suite and placed in a supine position. The patient's thyroid was interrogated with ultrasound and a dominant thyroid nodule suitable for biopsy was identified. A timeout was performed. The overlying skin was then prepped and draped in the usual sterile fashion. The overlying subcutaneous tissues were anesthetized using 2 percent lidocaine. Under real-time ultrasound guidance, a 25-gauge 7.5 cm needle was advanced into a left thyroid lobe nodule. Four sets of FNA passes were performed. All needles were then removed and hemostasis obtained using manual pressure. FINDINGS: Dominant nodule within left thyroid lobe. Impression: Successful uncomplicated ultrasound-guided thyroid FNA. Report Dictated on --- Final --- Dictating Physician: MD RIVERA KEVIN Signed Date and Time: 11/09/2019 2:39 pm Signed by: MD RIVERA KEVIN Transcribed Date and Time: 11/09/2019 2:40 [place] THYROIDon 10-18-2019 Patient Name: PREMA VILLALPANDO ---Ultrasound--- Exam Date/Time 10/18/2019 15:28:03 EDT Exam US Parathyroid Ordering Physician DO MORTON LISA Accession Number [id number] CPT4 Codes 83252 () Reason For Exam thyroid nodule Report ULTRASOUND THYROID: CLINICAL INDICATION: Left thyroid nodules. TECHNIQUE: Ultrasonographic evaluation of the thyroid including color flow imaging COMPARISON: None FINDINGS: RIGHT LOBE: The right thyroid lobe is surgically absent. LEFT LOBE: Size: Normal size. 1.9 x 1.9 x 4.5 cm (AP x transverse x sagittal) Nodules: Detailed below Heterogenous echogenicity. Nodule Location: Upper Size: 0.9 x 1.6 x 1.6 cm (AP, transverse, sagittal) . Composition: Solid (+2) Echogenicity: Hypoechoic (+2) Margins: Smooth (0) Calcifications: None (0) TI-RADS score*: 4 - moderately suspicious Change since last exam: Not applicable Nodule Location: Lower Size: 1.1 x 1.8 x 2.1 cm (AP, transverse, sagittal) . Composition: Partially cystic (+1) Echogenicity: Isoechoic (+1) Margins: Smooth (0) Calcifications: None (0) TI-RADS score*: 2 - not suspicious Change since last exam: Not applicable Nodule Location: Lower Size: 0.7 x 0.8 x 0.8 cm (AP, transverse, sagittal) . Composition: Solid (+2) Echogenicity: Hypoechoic (+2) Margins: Smooth (0) Calcifications: Macrocalcifications (+1) TI-RADS score*: 4 - moderately suspicious Change since last exam: Not applicable ISTHMUS: Normal. CERVICAL LYMPH NODES: None identified. IMPRESSION: 1. Multinodular left thyroid gland with the most suspicious nodule having a TI RADS 4 classification and measuring 1.6 cm. If not early performed further evaluation with an FNA of this nodule is recommended. 2. Postsurgical changes from a right thyroidectomy. TI-RADS Classification: Thyroid nodule details (add points for total score): Composition(points): 1 - mixed cystic and solid 2 - solid Echogenicity: 1 - hyperechoic or isoechoic 2 - hypoechoic 3 - very hypoechoic Shape: 3 - taller than wide Margin: 2 - lobulated or irregular 3 - extrathyroidal extension Echogenic foci: 1 - macrocalcifications 2 - rim calcification 3 - microcalcifications Risk for malignancy: TI-RADS 1 = 0 points - (benign) <2% risk TI-RADS 2 = 2 points - (not suspicious) <5% TI-RADS 3 = 3 points - (mildly suspicious) <5% FNA when >/= 2.5cm Follow when >1.5cm at 1, 3 and 5 years TI-RADS 4 = 4-6 points - (moderately suspicious) 5-20% FNA when >/= 1.5cm Follow when >1.0cm at 1, 2, 3 and 5 years TI-RADS 5 = 7+ points - (highly suspicious) >20% FNA when >/= 1.0cm Follow when >0.5cm every year for up to 5 years Notes: 1. There are other existing guidelines to classify thyroid nodules to determine need for FNA; and this decision will be deferred to the ordering physician. 2. Nodule vascularity is no longer considered a useful characteristic to assess risk for malignancy. 3. Score and follow a maximum of four nodules 4. Significant growth is increase in two dimensions each by 20% 5. Follow up scanning of less than 1yr is not warranted 6. FNA biopsy of no more than two nodules with highest TI-RADS levels References: Chintan Castro. ACR Thyroid Imaging, Reporting and Data System (TI-RADS): White Paper of the ACR TI-RADS Committee. J Am [employer]. May 2016 https://radiopaedia.org/a rticles/yfurtik-hgqae-iis vuhxdq-ash-hcir-system- tirads https://radiopaedia.org/a rticles/uan-usubfwv-alcxs fu-bpjiyynea-uav-data- system-a r-ti-rads Report Dictated on Workstation: [id number] --- Final --- Dictating Physician: DO ORDOÑEZ RACHEL Signed Date and Time: 10/18/2019 4:32 pm Signed by: DO ORDOÑEZ RACHEL Transcribed Date and Time: 10/18/2019 4:33 [facility] [place], [place], [facility] Incoming Radiology Results From [facility] - 10/18/2019 4:33 PM EDT Patient Name: PREMA VILLALPANDO ---Ultrasound--- Exam Date/Time 10/18/2019 15:28:03 EDT Exam [place] Parathyroid Ordering Physician DO MORTON LISA Accession Number [id number] CPT4 Codes 45300 () Reason For Exam thyroid nodule Report ULTRASOUND THYROID: CLINICAL INDICATION: Left thyroid nodules. TECHNIQUE: Ultrasonographic evaluation of the thyroid including color flow imaging COMPARISON: None FINDINGS: RIGHT LOBE: The right thyroid lobe is surgically absent. LEFT LOBE: Size: Normal size. 1.9 x 1.9 x 4.5 cm (AP x transverse x sagittal) Nodules: Detailed below Heterogenous echogenicity. Nodule Location: Upper Size: 0.9 x 1.6 x 1.6 cm (AP, transverse, sagittal) . Composition: Solid (+2) Echogenicity: Hypoechoic (+2) Margins: Smooth (0) Calcifications: None (0) TI-RADS score*: 4 - moderately suspicious Change since last exam: Not applicable Nodule Location: Lower Size: 1.1 x 1.8 x 2.1 cm (AP, transverse, sagittal) . Composition: Partially cystic (+1) Echogenicity: Isoechoic (+1) Margins: Smooth (0) Calcifications: None (0) TI-RADS score*: 2 - not suspicious Change since last exam: Not applicable Nodule Location: Lower Size: 0.7 x 0.8 x 0.8 cm (AP, transverse, sagittal) . Composition: Solid (+2) Echogenicity: Hypoechoic (+2) Margins: Smooth (0) Calcifications: Macrocalcifications (+1) TI-RADS score*: 4 - moderately suspicious Change since last exam: Not applicable ISTHMUS: Normal. CERVICAL LYMPH NODES: None identified. IMPRESSION: 1. Multinodular left thyroid gland with the most suspicious nodule having a TI RADS 4 classification and measuring 1.6 cm. If not early performed further evaluation with an FNA of this nodule is recommended. 2. Postsurgical changes from a right thyroidectomy. TI-RADS Classification: Thyroid nodule details (add points for total score): Composition(points): 1 - mixed cystic and solid 2 - solid Echogenicity: 1 - hyperechoic or isoechoic 2 - hypoechoic 3 - very hypoechoic Shape: 3 - taller than wide Margin: 2 - lobulated or irregular 3 - extrathyroidal extension Echogenic foci: 1 - macrocalcifications 2 - rim calcification 3 - microcalcifications Risk for malignancy: TI-RADS 1 = 0 points - (benign) <2% risk TI-RADS 2 = 2 points - (not suspicious) <5% TI-RADS 3 = 3 points - (mildly suspicious) <5% FNA when >/= 2.5cm Follow when >1.5cm at 1, 3 and 5 years TI-RADS 4 = 4-6 points - (moderately suspicious) 5-20% FNA when >/= 1.5cm Follow when >1.0cm at 1, 2, 3 and 5 years TI-RADS 5 = 7+ points - (highly suspicious) >20% FNA when >/= 1.0cm Follow when >0.5cm every year for up to 5 years Notes: 1. There are other existing guidelines to classify thyroid nodules to determine need for FNA; and this decision will be deferred to the ordering physician. 2. Nodule vascularity is no longer considered a useful characteristic to assess risk for malignancy. 3. Score and follow a maximum of four nodules 4. Significant growth is increase in two dimensions each by 20% 5. Follow up scanning of less than 1yr is not warranted 6. FNA biopsy of no more than two nodules with highest TI-RADS levels References: Chintan Castro. ACR Thyroid Imaging, Reporting and Data System (TI-RADS): White Paper of the ACR TI-RADS Committee. J Am [employer]. May 2016 https://radiopaedia.org/a rticles/gcljrin-dplvr-aoa jnhfpo-huq-leng-system- tirads https://radiopaedia.org/a rticles/sxs-xrezivg-ljjwi aj-pjloczupq-jgt-data- system-a r-ti-rads Report Dictated on --- Final --- Dictating Physician: DO ORDOÑEZ RACHEL Signed Date and Time: 10/18/2019 4:32 pm Signed by: DO ORDOÑEZ RACHEL Transcribed Date and Time: 10/18/2019 4:33 [facility], [place] BREAST ULTRASOUNDon 10-04-19 20 BREAST ULTRASOUND Patient Name: PREMA VILLALPANDO STUDY: BREAST ULTRASOUND; 10/04/2019 11:18 am ACCESSION NUMBER(S): [id number] ORDERING CLINICIAN: JANUSZ SCHWARTZ INDICATION: The patient was recalled from recent screening mammogram 08/09/2019 for a right breast mass like asymmetry. COMPARISON: Mammogram 08/09/2019. FINDINGS: Targeted ultrasound of the right breast was performed by a registered cement and concrete [employer] worker submitted for remote interpretation. A morphologically normal lymph node is identified within the 9 o'clock position 6 cm from the nipple. It measures 0.8 x 0.6 x 0.3 cm and demonstrates a cortical thickness of 0.2 cm. It corresponds with the mammographic finding. IMPRESSION: Morphologically normal right intramammary lymph node. No additional follow-up is warranted for this finding. Resume annual screening mammogram. BI-RADS CATEGORY: Category: 2 - Benign. Recommendation: 1 Year Screening. For any future breast imaging appointments, please call [phone] ([phone]). Patient letter sent SNORM I personally reviewed the images/study and I agree with the resident care assistant physician, Dr. Geremias New's findings, as stated. This study was interpreted at [facility]. Electronically signed by: NAEL COLMENARES MD Normal [facility] CT HEAD OR BRAIN W/O CONTRAS Ton 09-28-2019 CT HEAD OR BRAIN W/O CONTRAST ORIGINAL CT HEAD OR BRAIN W/O CONTRAST CLINICAL STATEMENT: pain; trauma patient, fall TECHNIQUE: Axial CT images from skull base to vertex without IV contrast. This exam was performed according to our departmental dose optimization program, and includes the following measures where applicable: automated exposure control, adjustment of the mAs and/or kVp according to patient size and/or exam, and an iterative reconstruction algorithm. COMPARISON: 02/24/2019 FINDINGS: There is no intracranial hemorrhage, mass, mass effect, or abnormal extra-axial fluid collection. Hypodensities within the periventricular white matter are most consistent with mild, chronic microvascular angiopathy. No CT evidence of an acute territorial infarction. Focal hypodensity within the RIGHT lentiform nucleus posteriorly unchanged. There is also chronic postischemic changes of posterior RIGHT centrum semiovale. There is age-related atrophy with compensatory dilatation of the ventricles. There are atherosclerotic calcifications within the cavernous carotids. The skull base and calvarium demonstrate no acute abnormality. The included paranasal sinuses and mastoid air cells are clear. IMPRESSION: No acute intracranial abnormality. I have personally reviewed the images of this examination and agree with the resident's findings and interpretation. Interpreted By: Dimitris Stiles MD Preliminary Report By: Edis Adkins DO Electronically Signed By: Dimitris Stiles MD Dictated Date: 09/27/2019 9:49:58 PM Prelim Date: 09/27/2019 9:52:04 PM Sign Date: 09/27/2019 10:01:36 PM Ordering Provider:Felton Mitchell [facility] ([place]) CT SPINE CERVICAL W/O CONTRA Ang 09-28-2019 CT SPINE CERVICAL W/O CONTRAST ORIGINAL CT SPINE CERVICAL W/O CONTRAST CLINICAL STATEMENT: pain; trauma patient, fall TECHNIQUE: Multiple-row detector helical CT examination of the cervical spine without IV contrast. Axial, sagittal, and coronal reconstructed images. This exam was performed according to our departmental dose optimization program, and includes the following measures where applicable: automated exposure control, adjustment of the mAs and/or kVp according to patient size and/or exam, and an iterative reconstruction algorithm. COMPARISON: None. FINDINGS: No fracture or traumatic malalignment. Vertebral body heights are maintained. No aggressive osseous lesions are identified. There is degenerative change within the cervical spine, most prominent at C5-C6, including osteophytosis, uncovertebral spurring, intervertebral disc height loss, and facet arthropathy. The prevertebral and paraspinal soft tissues demonstrate no acute abnormality. The RIGHT thyroid lobe appears absent. There are multiple nodules within the LEFT thyroid lobe. The largest measures up to 17 mm. IMPRESSION: No acute fracture or traumatic malalignment. LEFT thyroid lobe nodules, for which thyroid ultrasound could be considered. (Recommendations for f/u of Incidental Thyroid Nodules (ITN) found on CT, MRI, NM and Extrathyroidal US based on the ACR white paper and Leyva 3-tiered system for managing ITNs). I have personally reviewed the images of this examination and agree with the resident's findings and interpretation. Interpreted By: Dimitris Stiles MD Preliminary Report By: Edis Adkins DO Electronically Signed By: Dimitris Stiles MD Dictated Date: 09/27/2019 9:52:11 PM Prelim Date: 09/27/2019 9:55:16 PM Sign Date: 09/27/2019 10:04:18 PM Ordering Provider:[facility] ([place]) XR CHEST 2 VIEWSon 0 XR CHEST 2 VIEWS ORIGINAL XR CHEST 2 VIEWS CLINICAL STATEMENT: Pain; Trauma patient COMPARISON: None FINDINGS: The cardiomediastinal contours are normal. There is mild aortic atherosclerosis. There is no consolidation, vascular congestion, pleural effusion, or pneumothorax. There is a moderate hiatal hernia. There are no acute abnormalities to osseous structures. Is mild multilevel degenerative change, with a few areas of slight anterior wedging in the lower thoracic spine. IMPRESSION: No acute radiographic findings. I have personally reviewed the images of this examination and agree with the resident's findings and interpretation. Interpreted By: Dimitris Stiles MD Preliminary Report By: Edis Adkins DO Electronically Signed By: Dimitris Stiles MD Dictated Date: 09/27/2019 10:13:01 PM Prelim Date: 09/27/2019 10:14:01 PM Sign Date: 09/27/2019 10:20:57 PM Ordering Provider:[facility] ([place]) XR ELBOW MINIMUM 3 VIEWS RIG HTon 09-28-2019 XR ELBOW MINIMUM 3 VIEWS RIGHT ORIGINAL XR ELBOW MINIMUM 3 VIEWS RIGHT CLINICAL STATEMENT: pain Comparison: 04/01/2019 FINDINGS: There is no acute fracture or dislocation. There is no significant soft tissue swelling. No joint effusion. There is no radiopaque foreign body. The articulations are intact. IMPRESSION: No acute fracture or dislocation. I have personally reviewed the images of this examination and agree with the resident's findings and interpretation. Interpreted By: Dimitris Stiles MD Preliminary Report By: Edis Adkins DO Electronically Signed By: Dimitris Stiles MD Dictated Date: 09/27/2019 10:14:06 PM Prelim Date: 09/27/2019 10:14:48 PM Sign Date: 09/27/2019 10:20:19 PM Ordering Provider:[place] [facility] ([place]) Basic Metabolic Panelon 07- Anion gap [Moles/Vol] 9 mmol/L [place], [place] Calcium [Mass/Vol] 9.7 mg/dL 8.4 - 10. 4 mg/dL [place] Chloride [Moles/Vol] 99 mmol/L 98 - 10 7 mmol/L [place] CO2 [Moles/Vol] 32 mmol/L High 22 - 30 mmol/L [place] Creatinine [Mass/Vol] 1.02 mg/dL 0.52 - 1.25 mg/dL [place] EGFR IF NonAfrican Samoan 53.1 mL/min Abnormal >60 [place] Comment on above: KDIGO guidelines pro vide the following GFR categories: Stage GFR(ml/min/1.73 m2) Terms G1 >=90 Normal or high G2 60-89 Mildly decreased* G3a 45-59 Mildly to moderately decreased G3b 30-44 Moderately to severely decreased G4 15-29 Severely decreased G5 <15 Kidney failure *Relative to young adult level. In the absence of evidence of kidney damage, neither GFR category G1 nor G2 fulfill the criteria for CKD. The CKD-EPI equation is validated in individuals 18 years of age and older. Currently the best equation for estimating glomerular filtration rate (GFR) from serum creatinine in children is the Bedside Oneal equation. It is less accurate in patients with extremes of muscle mass, restriction of dietary protein, ingestion of creatine, extra-renal metabolism of creatinine, or treatment with medications that affect renal tubular creatinine secretion. GFR/1.73 sq M predicted among blacks MDRD (S/P/Bld) [Vol rate/Area] 61.5 mL/min/{1.73_m2} >60 [place] Glucose [Mass/Vol] 146 mg/dL High 70 - 100 mg/dL [place] Potassium [Moles/Vol] 3.7 mmol/L 3.5 - 5.1 mmol/L [place] Sodium [Moles/Vol] 140 mmol/L 135 - 145 mmol/L [place] Urea nitrogen [Mass/Vol] 29 mg/dL High 7 - 20 mg/dL [place] CBCon 08-21-2019 Erythrocyte distribution width (RBC) [Ratio] 12.7 % 11.5 - 14.5 % [place] Hematocrit (Bld) [Volume fraction] 37.1 % 35 - 47 % [place] Hemoglobin (Bld) [Mass/Vol] 12.7 g/dL 11.7 - 16 g/dL [place] MCH (RBC) [Entitic mass] 32.0 pg 26 - 34 pg [place] MCHC (RBC) [Mass/Vol] 34.3 % 32 - 36 % [place] MCV (RBC) [Entitic vol] 93.3 fL 79 - 98 fL [place] Platelet mean volume (Bld) [Entitic vol] 10.3 fL 7.4 - 10.4 fL [place] Platelets (Bld) [#/Vol] 236 10*3/uL 140 - 440 10*3/uL [place] RBC (Bld) [#/Vol] 3.97 10*6/uL 3.8 - 5.2 10*6/uL [place] WBC (Bld) [#/Vol] 8.1 10*3/uL 3.6 - 10.7 10*3/uL [place] Test Performed by [facility], [address] [place] [address] [place]. , [address] Hepatic Function Panelon Albumin [Mass/Vol] 4.1 g/dL 3.5 - 5 g/dL [place], [place] ALP [Catalytic activity/Vol] 172 U/L High 38 - 126 U/L [place] ALT [Catalytic activity/Vol] 63 U/L High 0 - 34 U/L [place] Comment on above: The ALT test is perf ormed by an updated assay method. Please note that the reference intervals have been changed and are now sex specific. AST [Catalytic activity/Vol] 65 U/L High 15 - 46 U/L [place] Bilirubin Ql (U) 0.4 mg/dL 0.2 - 1.3 mg/dL [place] Bilirubin.direct [Mass/Vol] 0.0 mg/dL 0 - 0.3 mg/dL [facility] Protein [Mass/Vol] 7.5 g/dL 6.3 - 8.2 g/dL [facility] Otheron 08-21-2019 Interpretation and review of laboratory results Abnormal [place] Test Performed by [facility], [address] , [address] DIGITAL MAMM SCREENING W/ TO Lynne 08-09-2019 DIGITAL MAMM SCREENING W/ ENOCH Patient Name: PREMA VILLALPANDO STUDY: DIGITAL MAMM SCREENING W/ ENOCH; 08/09/2019 11:50 am ACCESSION NUMBER(S): [id number] ORDERING CLINICIAN: JANUSZ SCHWARTZ INDICATION: Screening. New baseline. COMPARISON: None. FINDINGS: 2D and tomosynthesis images were reviewed at 1 mm slice thickness. The breast tissue is extremely dense, which may limit the sensitivity of mammography. There is a masslike asymmetry in the deep central right breast on the MLO view. It is uncertain if this represents a low axillary lymph node. No suspicious masses or calcifications are identified in the left breast. IMPRESSION: No mammographic evidence of malignancy in the left breast. Right breast masslike asymmetry, possible low axillary lymph node. BI-RADS CATEGORY: Category: 0 - Incomplete; Need Additional Imaging Evaluation and/or Prior Mammograms for Comparison. Recommendation: Ultrasound Recommended. For any future breast imaging appointments, please call [phone]). Patient letter sent ROLANDO I personally reviewed the images/study and I agree with the resident, Dr. Geremias New's findings as stated. This study was interpreted at [facility]. Electronically signed by: THELMA HERNANDEZ MD [facility] Clinic Note - Heme Oncon Clinic Note - Heme Onc History of Presen t Illness: Interval History: Consulting physician Dr. 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 Patient had further workup done although a mammogram is scheduled next month or so due to recent COVID 19 Pandemic. In the interim, Patient has started taking protein powder and has gained 6 pound weight back especially some of the reason for her weight loss was also because she went through divorce with her and was under a lot of stress and finally has moved next door to daughter in a trailer. Patient claims that she is somewhat happier now and is eating better although gets full after eating small amount meal Past medical history Large hiatal hernia and part of the stomach is in the mediastinum Patient has a history of esophageal stricture status post dilatation Patient had EGD 6 months ago either at [facility] or [facility] in July 2018 and had stent placed at [facility], at that time she was hypoxemic and developed hypoxic brain injury and dementia related to that especially she was also severely anemic and blood loss, further detail is unclear. The patient had 2 stents placed at that time Hypertension Anxiety/depression, arthritis, hearing problem, History of goiter for which she had surgery in her younger years, patient was on Synthroid although later she was taken off. Cholecystectomy in February 2019 Patient also had a colonoscopy as well as EGD with the last 6 month at [facility] per daughter REVIEW OF SYSTEMS: Patient is confused at times forgetful, generalized fatigue, occasional cough, memory changes, no bleeding from any orifice , weight loss as per history of present illness Physical examination General: Conscious, alert, oriented x3, somewhat forgetful not in acute distress. HEENT: Normocephalic. NATHALIA. No icterus. Conjunctivae and pharynx are pink. Oral mucosa moist. No nasal discharge. Neck is supple. No cervical or supraclavicular lymphadenopathy. Chest:Bilateral symmetrical, bilateral air entry. CVS: S1, S2. Regular rate and rhythm. Abdomen: Soft, nontender. No hepatosplenomegaly or masses. Bowel sounds positive. 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 Extremities: No clubbing, cyanosis, or edema. Skin: No petechial rash. Assessment and plan Patient is a 78-year-old white woman with large hiatal hernia, anoxic brain injury after severe anemia and acute MA in July 2018 and since then she also had several major life event including filing for divorce. Has lost 41 pound of weight in the last 8-10 months, Extensive evaluation including CAT scan of the chest abdomen pelvis is negative for any evidence of malignancy. Most likely etiology of her weight loss seems to be related to large hiatal hernia and recent major life event including divorce. Patient is now adding protein powder to her meal in addition she has moved close to daughter and she has gained 6 pound weight in the last month or so. At this time I recommended no further workup from oncology standpoint, she is due for mammogram which has been scheduled in a month or so. At this time I will release her from my office and she will continue follow-up with primary care physician Dr. 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 Thank you very much for allowing me to participate in care of this patient, should you have any further question please do not hesitate to contact me. Charting was completed using voice recognition technology and may include unintended errors. Janusz Schwartz MD Hematology-Oncology [place] Office Outpatient Medication Profile: * Patient Currently Takes Medications as of 30-Jun-2019 09:59 documented in Structured Notes atorvastatin 80 mg oral tablet: Last Dose Taken: , 1 tab(s) orally once a day clopidogrel 75 mg oral tablet: Last Dose Taken: , 1 tab(s) orally once a day metoprolol tartrate 25 mg oral tablet: Last Dose Taken: omeprazole 40 mg oral delayed release capsule: Last Dose Taken: , 1 cap(s) orally once a day potassium: Last Dose Taken: sertraline 50 mg oral tablet: Last Dose Taken: , 1 tab(s) orally once a day torsemide 20 mg oral tablet: Last Dose Taken: , 1 tab(s) orally once a day multivitamin: Last Dose Taken: aspirin 81 mg oral tablet, chewable: Last Dose Taken: , 1 tab(s) orally once a day donepezil 10 mg oral tablet: Last Dose Taken: ondansetron 4 mg oral tablet: Last Dose Taken: pantoprazole 40 mg oral delayed release tablet: Last Dose Taken: ursodiol 300 mg oral tablet: Last Dose Taken: oxycodone-acetominophen: Last Dose Taken: , 325 , As Needed Medical History: Hiatal hernia: ICD-10: K44.9, Status: Active Dementia: ICD-10: F03.90, Status: Active Hydronephrosis: ICD-10: N13.30, Status: Active Weight loss, abnormal: ICD-10: R63.4, Status: Active Family History: No Family History items are recorded in the problem list. Social History: Smoking Status: never smoker Alcohol Use: denies Drug Use: denies Vitals and Measurements: Vitals: Temp: 36.8 HR: 75 RR: 16 BP: 126/61 SPO2%: 99 Measurements: HT(cm): 0 WT(kg): 48.1 BSA: 0 BMI: NA Lab Results: Results Her lab in February 22, 2019 showed W BC 12.1 hemoglobin 12.2 platelets 321 normal differential, iron saturation 17% her hemoglobin was 13.4 in January 2019 glucose was 174 TSH 1.8 CEA of 1.2, CA-125 was 9.9, CA 199 was 21 CAT scan of the chest abdomen pelvis on April 04, 2019 showed no lung mass large hiatal hernia in the mediastinum bilateral proximal moderate hydroureter without any active lesion no abdominal lymphadenopathy noted I have reviewed these laboratory results: Hemoglobin A1C 05-Jun-2019 08:31:00 ResultValue Hemoglobin A1C, Level 6.2 Diagnosis of Diabetes-Adults Non-Diabetic: < or = 5.6% Increased risk for developing diabetes: 5.7-6.4% Diagnostic of diabetes: > or = 6.5% . Monitoring of Diabetes Age (y) Therapeutic Goal (%) Adults: >1 Estimated Average Glucose 131 TSH with Reflex to Free T4 if Abnormal 05-Jun-2019 08:31:00 ResultValue Thyroid Stimulating Hormone, Serum 3.40 Complete Blood Count + Differential 05-Jun-2019 08:31:00 ResultValue White Blood Cell Count 5.9 Nucleated Erythrocyte Count 0.0 Red Blood Cell Count 3.98 L HGB 12.3 HCT 38.7 MCV 97 MCHC 31.8 L PLT 199 RDW-CV 13.3 Neutrophil % 68.3 Immature Granulocytes % 0.3 Lymphocyte % 19.8 Monocyte % 7.6 Eosinophil % 3.0 Basophil % 1.0 Neutrophil Count 4.04 Lymphocyte Count 1.17 Monocyte Count 0.45 Eosinophil Count 0.18 Basophil Count 0.06 Comprehensive Metabolic Panel 05-Jun-2019 08:31:00 ResultValue Glucose, Serum 140 H NA 142 K 4.1 CL 103 Bicarbonate, Serum 31 Anion Gap, Serum 12 BUN 21 CREAT 0.72 GFR-Non >60 GFR- >60 Calcium, Serum 9.3 ALB 3.6 ALKP 236 H T Pro 6.7 T Bili 0.5 Alanine Aminotransferase, Serum 77 H Aspartate Transaminase, Serum 96 H Urinalysis 05-Jun-2019 08:31:00 ResultValue Color, Urine YELLOW Reference Range: STRAW,YELLOW Appearance, Urine CLEAR Specific [place], Urine 1.020 pH, Urine 6.0 Protein, Urine NEGATIVE Glucose, Urine NEGATIVE Blood, Urine NEGATIVE Ketones, Urine NEGATIVE Bilirubin, Urine NEGATIVE Urobilinogen, Urine <2.0 Nitrite, Urine NEGATIVE Leukocyte Esterase, Urine NEGATIVE HIV Antigen/Antibody Screen 05-Jun-2019 08:31:00 ResultValue HIV Ag/Ab Screen NONREACTIVE Reference Range: NONREACTIVE HIV Ag/Ab screen is performed using the Siemens Carticipate HIV Ag/Ab Combo assay which detects the presence of HIV p24 antigen as well as antibodies to HIV-1 (Group M and O) and HIV-2. Lactate Dehydrogenase, Serum 05-Jun-2019 08:31:00 ResultValue LDH 161 Cortisol, Unspecified 05-Jun-2019 08:31:00 ResultValue Cortisol, Unspecified 23.2 H Patient Instructions: Instructions: waiting mammogram release from office f/u with Dr Morton Smoking Cessation Counseling Referral: Is the patient interested in referral for cessation counseling: no Note Recipients: Mita Morton MD - [phone] Select Yes when ready to send to Provider(s) Listed Above: Note sent to providers named above Electronic Signatures: Janusz Schwartz) (Signed 30-Jun-2019 11:34) Authored: History of Present Illness, Allergies and Outpatient Medication Profile, Problem List, Social History, Performance Assessments, Vitals and Measurements, Physical Exam, Results, Patient Instructions, To Send Document via Auto Fax Last Updated: 30-Jun-2019 11:34 by Janusz Schwartz) Normal [facility] Clinic Note - Heme Onc This report has b een cancelled. Normal [facility] Clinic Note - Intakeon 06-29 Clinic Note - Intake Patient Visit Information: Visit TypeFollow Up Visit Patient StatesFollow up Source of Informationpatient Accompanied byfamily Admission Information: Admission Since Last VisitNo Vital Signs: Temp (degrees C)36.8 degrees C Heart Rate (beats/min)75 beats per minute Respiration (breaths/min)16 breath per minute BP Systolic (mm Hg)126 mmHg BP Diastolic (mm Hg)61 mmHg BP Mean (mm Hg)82 mmHg Height in cm149.2 centimeter(s) Height Methodmeasured 06/30/19 barefoot Heightstanding Weight in kg48.1 kilogram(s) Weight Methodstanding scale BMI (kg/m2)21.6 BSA (m2)1.41 SpO2 (%)99 % SpO2 Patient Onroom air Pain Screening: Patient States Painno (0) Outpatient Medication Profile: * Patient Currently Takes Medications as of 30-Jun-2019 09:59 documented in Structured Notes atorvastatin 80 mg oral tablet: Last Dose Taken: , 1 tab(s) orally once a day clopidogrel 75 mg oral tablet: Last Dose Taken: , 1 tab(s) orally once a day metoprolol tartrate 25 mg oral tablet: Last Dose Taken: omeprazole 40 mg oral delayed release capsule: Last Dose Taken: , 1 cap(s) orally once a day potassium: Last Dose Taken: sertraline 50 mg oral tablet: Last Dose Taken: , 1 tab(s) orally once a day torsemide 20 mg oral tablet: Last Dose Taken: , 1 tab(s) orally once a day multivitamin: Last Dose Taken: aspirin 81 mg oral tablet, chewable: Last Dose Taken: , 1 tab(s) orally once a day donepezil 10 mg oral tablet: Last Dose Taken: ondansetron 4 mg oral tablet: Last Dose Taken: pantoprazole 40 mg oral delayed release tablet: Last Dose Taken: ursodiol 300 mg oral tablet: Last Dose Taken: oxycodone-acetominophen: Last Dose Taken: , 325 , As Needed Notification: NotificationsAnnual Screens Due Dates Advanced Directives: June 29, 2020 Family Violence: June 29, 2020 Depression (Due every 6 months for ONC only; all others use Annual date): Dec 27, 2019 Substance Use - Alcohol: June 29, 2020 Substance Use - Drugs: June 29, 2020 Nutrition: June 29, 2020 Learning: June 29, 2020 Travel History: COVID-19 Screening Completedno exposure or symptoms Falls: Have you fallen in the last 6 monthsno Do you have a fear of fallingno Do you feel you need assistanceno Is the patient using an assistive deviceno [facility] Violence: Do you feel UNSAFE going back to the place you are livingno Are you or have you been threatened or abused physically,emotionally or sexually abused by anyoneno Depression: 1) During the past 2 wks, have you felt down, depressed or hopelessno 4) Have you had thoughts of harming anyone elseno 2) During the past 2 wks, have you felt little interest/pleasure doing things no 3) Have you had thoughts of harming yourselfno Substance: How many times in the past year have you had 4 or more drinks within 24 hours0 How many times in past year have you used recreational or prescription drugs for non-medical reasons0 Patient Declined to Answerno Nutrition/Learning: In the past month, was there any day when you or anyone in your family went hungry because you didn't have enough foodno Primary LanguageEnglish Do you, or others today, need extra help due to problems with hearing,speaking, seeing, moving around or learningno Electronic Signatures: Sangeetha Shannon) (Signed 30-Jun-2019 10:14) Authored: Patient Visit Information, Vital Signs, Outpatient Medication Profile, Adult Admission Risk Screen Last Updated: 30-Jun-2019 10:14 by Sangeetha Shannon) Normal [facility] CBC AND DIFFERENTIALon 06-04 % AUTOMATED IMMATURE GRAN 0.3 % Normal 0.0 - 0.9 [facility] Comment on above: Result Comment: Apolonia ture Granulocyte Count (IG) includes promyelocytes, myelocytes and metamyelocytes but does not include bands. Percent differential counts (%) should be interpreted in the context of the absolute cell counts (cells/L). Performed By: #### C BCDF #### [facility] [address] [place] [address] Basophils (Bld) [#/Vol] 0.06 10*3/uL Normal 0.00 - 0.10 [facility] Comment on above: Performed By: #### C BCDF #### [facility] [address] [place] [address] Basophils/100 WBC (Bld) 1.0 % Normal 0.0 - 2.0 [facility] Comment on above: Performed By: #### C BCDF #### [facility] [address] [place] [address] Eosinophils (Bld) [#/Vol] 0.18 10*3/uL Normal 0.00 - 0.40 [facility] Comment on above: Performed By: #### C BCDF #### [facility] [address] [place] [address] Eosinophils/100 WBC (Bld) 3.0 % Normal 0.0 - 6.0 [facility] Comment on above: Performed By: #### C BCDF #### [facility] [address] [place] [address] Erythrocyte distribution width (RBC) [Ratio] 13.3 % Normal 11.5 - 14.5 [facility] Comment on above: Performed By: #### C BCDF #### [facility] [address] [place] [address] Hematocrit (Bld) [Volume fraction] 38.7 % Normal 36.0 - 46.0 [facility] Comment on above: Performed By: #### C BCDF #### [facility] [address] [place] [address] Hemoglobin (Bld) [Mass/Vol] 12.3 g/dL Normal 12.0 - 16.0 [facility] Comment on above: Performed By: #### C BCDF #### [facility] [address] [place] [address] Lymphocytes (Bld) [#/Vol] 1.17 10*3/uL Normal 0.80 - 3.00 [facility] Comment on above: Performed By: #### C BCDF #### [facility] [address] [place] [address] Lymphocytes/100 WBC (Bld) 19.8 % Normal 13.0 - 44.0 [facility] Comment on above: Performed By: #### C BCDF #### [facility] [address] [place] [address] MCHC (RBC) [Mass/Vol] 31.8 g/dL Low 32.0 - 36.0 [facility] Comment on above: Performed By: #### C BCDF #### [facility] [address] [place] [address] MCV (RBC) [Entitic vol] 97 fL Normal 80 - 100 [facility] Comment on above: Performed By: #### C BCDF #### [facility] [address] [place] [address] Monocytes (Bld) [#/Vol] 0.45 10*3/uL Normal 0.05 - 0.80 [facility] Comment on above: Performed By: #### C BCDF #### [facility] [address] [place] [address] Monocytes/100 WBC (Bld) 7.6 % Normal 2.0 - 10.0 [facility] Comment on above: Performed By: #### C BCDF #### [facility] [address] [place] [address] Neutrophils (Bld) [#/Vol] 4.04 10*3/uL Normal 1.60 - 5.50 [facility] Comment on above: Performed By: #### C BCDF #### [facility] [address] [place] [address] Neutrophils/100 WBC (Bld) 68.3 % Normal 40.0 - 80.0 [facility] Comment on above: Performed By: #### C BCDF #### [facility] [address] [place] [address] Nucleated RBC/100 WBC (Bld) [Ratio] 0.0 /100 WBC Normal 0.0-0.0 [facility] Comment on above: Performed By: #### C BCDF #### [facility] [address] [place] [address] Platelets (Bld) [#/Vol] 199 10*3/uL Normal 150 - 450 [facility] Comment on above: Performed By: #### C BCDF #### [facility] [address] [place] [address] RBC (Bld) [#/Vol] 3.98 x10E12/L Low 4.00 - 5.20 [facility] Comment on above: Performed By: #### C BCDF #### [facility] [address] [place] [address] WBC (Bld) [#/Vol] 5.9 10*3/uL Normal 4.4 - 11.3 [facility] Comment on above: Performed By: #### C BCDF #### [facility] [address] [place] [address] COMPREHENSIVE PANELon 2019 Albumin [Mass/Vol] 3.6 g/dL Normal 3.4 - 5.0 [facility] Comment on above: Performed By: #### C MP #### [facility] [address] [place] [address] ALP [Catalytic activity/Vol] 236 U/L High 33 - 136 [facility] Comment on above: Performed By: #### C MP #### [facility] [address] [place] [address] ALT [Catalytic activity/Vol] 77 U/L High 7 - 45 [facility] Comment on above: Result Comment: Lauren ents treated with Sulfasalazine may generate falsely decreased results for ALT. Performed By: #### C MP #### [facility] [address] [place] [address] Anion gap [Moles/Vol] 12 mmol/L Normal 10 - 20 [facility] Comment on above: Performed By: #### C MP #### [facility] [address] [place] [address] AST [Catalytic activity/Vol] 96 U/L High 9 - 39 [facility] Comment on above: Performed By: #### C MP #### [facility] [address] [place] [address] Bilirubin [Mass/Vol] 0.5 mg/dL Normal 0.0 - 1.2 [facility] Comment on above: Performed By: #### C MP #### [facility] [address] [place] [address] Calcium [Mass/Vol] 9.3 mg/dL Normal 8.6 - 10.6 [facility] Comment on above: Performed By: #### C MP #### [facility] [address] [place] [address] Chloride [Moles/Vol] 103 mmol/L Normal 98 - 107 [facility] Comment on above: Performed By: #### C MP #### [facility] [address] [place] [address] Creatinine [Mass/Vol] 0.72 mg/dL Normal 0.50 - 1.05 [facility] Comment on above: Performed By: #### C MP #### [facility] [address] [place] [address] GFR- AM. >60 Normal >60 [facility] Comment on above: Result Comment: CALC ULATIONS OF ESTIMATED GFR ARE PERFORMED USING THE MDRD STUDY EQUATION FOR THE IDMS-TRACEABLE CREATININE METHODS. CLIN CHEM 2007;53:766-72 Performed By: #### C MP #### [facility] [address] [place] [address] GFR-NON AM. >60 Normal >60 [facility] Comment on above: Performed By: #### C MP #### [facility] [address] [place] [address] Glucose [Mass/Vol] 140 mg/dL High 74 - 99 [facility] Comment on above: Performed By: #### C MP #### [facility] [address] [place] [place] [address] HCO3 (Bld) [Moles/Vol] 31 mmol/L Normal 21 - 32 [facility] Comment on above: Performed By: #### C MP #### [facility] [id number] [place] [address] Potassium [Moles/Vol] 4.1 mmol/L Normal 3.5 - 5.3 [facility] Comment on above: Performed By: #### C MP #### [facility] [address] [place] [address] Protein [Mass/Vol] 6.7 g/dL Normal 6.4 - 8.2 [facility] Comment on above: Performed By: #### C MP #### [facility] [address] [place] [address] Sodium [Moles/Vol] 142 mmol/L Normal 136 - 145 [facility] Comment on above: Performed By: #### C MP #### [facility] [address] [place] [address] Urea nitrogen [Mass/Vol] 21 mg/dL Normal 6 - 23 [facility] Comment on above: Performed By: #### C MP #### [facility] [address] [place] [address] CORTISOL,UNSPECIFIEDon 06-04 CORTISOL,UNSPECIFIED 23.2 ug/dL High 2.5 - 20.0 [facility] Comment on above: Performed By: #### C ORUN #### [facility] [address] [place] [address] HEMOGLOBIN A1Con 06-05-2019 HbA1c (Bld) [Mass fraction] 6.2 % Normal [facility] Comment on above: Result Comment: Diag nosis of Diabetes-Adults Non-Diabetic: < or = 5.6% Increased risk for developing diabetes: 5.7-6.4% Diagnostic of diabetes: > or = 6.5% . Monitoring of Diabetes Age (y) Therapeutic Goal (%) Adults: >18 <7.0 Pediatrics: 13-18 <7.5 7-12 <8.0 0- 6 7.5-8.5 [employer]. Diabetes Care 33(S1), Feb 2009. Performed By: #### H BA1E #### [facility] [address] [place] [address] HbA1c (Bld) [Mass fraction] 131 MG/DL Normal [facility] Comment on above: Performed By: #### H BA1E #### [facility] [address] [place] [address] HIV ANTIGEN/ANTIBODY SCREENo n 06-05-2019 HIV AG/AB SCREEN NONREACTIVE Normal NONREACTIVE [facility] Comment on above: Result Comment: HIV Ag/Ab screen is performed using the [employer] HIV Ag/Ab Combo assay which detects the presence of HIV p24 antigen as well as antibodies to HIV-1 (Group M and O) and HIV-2. Performed By: #### H IV #### [facility] [address] [place] LDHon 06-05-2019 LDH 161 U/L Normal 84 - 246 [facility] Comment on above: Performed By: #### L DH #### [facility] [address] [place] TSH WITH REFLEX TO FREE T4 I F ABNORMALon 06-05-2019 TSH Qn 3.40 m[IU]/L Normal 0.44 - 3.98 [facility] Comment on above: Result Comment: Note new pediatric reference range as of 04/11/2019. TSH testing is performed using different testing methodology at [facility] than at other [facility]. Direct result comparisons should only be made within the same method. Performed By: #### T HYDS #### [facility] [address] [place] Lab Specimen Source Normal [facility] Comment on above: Performed By: #### T HYDS #### [facility] [address] [place] Performed By: #### C ORUN #### [facility] [address] [place] Performed By: #### H IV #### [facility] [address] [place] URINALYSISon 06-05-2019 Appearance (U) CLEAR Normal CLEAR [facility] Comment on above: Performed By: #### U A #### [facility] [address] [place] Bilirubin (U) [Mass/Vol] Negative Normal NEGATIVE [facility] Comment on above: Performed By: #### U A #### [facility] [address] [place] [address] BLOOD Negative Normal NEGATIVE [facility] Comment on above: Performed By: #### U A #### [facility] [address] [place] [address] Color (U) YELLOW Normal STRAW,YELLOW [facility] Comment on above: Performed By: #### U A #### [facility] [address] [place] [address] Glucose [Mass/Vol] Negative Normal NEGATIVE [facility] Comment on above: Performed By: #### U A #### [facility] [address] [place] [address] Ketones Ql (U) Negative Normal NEGATIVE [facility] Comment on above: Performed By: #### U A #### [facility] [address] [place] [address] Leukocyte esterase Test strip Ql (U) Negative Normal NEGATIVE [facility] Comment on above: Performed By: #### U A #### [facility] [address] [place] [address] Nitrite Ql (U) Negative Normal NEGATIVE [facility] Comment on above: Performed By: #### U A #### [facility] [address] [place] [address] pH (Bld) 6.0 Normal 5.0 - 8.0 [facility] Comment on above: Performed By: #### U A #### [facility] [address] [place] [address] Protein (U) [Mass/Vol] Negative Normal NEGATIVE [facility] Comment on above: Performed By: #### U A #### [facility] [address] [place] [address] Specific gravity (U) [Rel density] 1.020 Normal 1.005 - 1.035 [facility] Comment on above: Performed By: #### U A #### [facility] [address] [place] [address] Urobilinogen Qn (U) <2.0 Normal 0.0 - 1.9 [facility] Comment on above: Performed By: #### U A #### [facility] [address] [place] [address] [facility] Note - Heme Onc-Virtu al Visiton 06-02-2019 Clinic Note - Heme Onc-Virtual Visit Patient Visit Information: Visit Type: Virtual Visit: An interactive audio and video telecommunication system which permits real time communications between the patient (at the originating site) and provider (at the distant site) was utilized to provide this telehealth service. Verbal Consent for Encounter: Verbal consent was requested and obtained from patient, or from parent/guardian if minor, on this date for a telehealth visit. History of Present Illness: Interval History: Consulting physician Dr. 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 Patient has had significant life event since August 2018 including filing for a divorce with her and later moved with daughter and currently she lives next door to her daughter in a trailer alone. Although patient claims that she is eating reasonably well and denies any diarrhea although is forgetful at times confused after hypoxic brain injury which happened when she had MRI in July 2018. Past medical history Large hiatal hernia and part of the stomach is in the mediastinum Patient has a history of esophageal stricture status post dilatation Patient had EGD 6 months ago either at [facility] or [facility] in July 2018 and had stent placed at [facility], at that time she was hypoxemic and developed hypoxic brain injury and dementia related to that especially she was also severely anemic and blood loss, further detail is unclear. The patient had 2 stents placed at that time Hypertension Anxiety/depression, arthritis, hearing problem, History of goiter for which she had surgery in her younger years, patient was on Synthroid although later she was taken off. Cholecystectomy in February 2019 Patient also had a colonoscopy as well as EGD with the last 6 month at [facility] per daughter Family history Lung disease in father, mother had dementia Allergy She thinks that she is allergic to some sort of blood thinner when she was in the hospital in February 2019 at [facility] but is not sure REVIEW OF SYSTEMS: Patient is confused at times forgetful, generalized fatigue, occasional cough, memory changes, no bleeding from any orifice at this time and weight loss of 41 pounds in last 8-10 months as per history of present illness Rest of the 10 review of systems negative and as per history of present illness Physical examination General: Conscious, alert, oriented x3, not in acute distress. Data: Her lab in February 22, 2019 showed W BC 12.1 hemoglobin 12.2 platelets 321 normal differential, iron saturation 17% her hemoglobin was 13.4 in January 2019 glucose was 174 TSH 1.8 CEA of 1.2, CA-125 was 9.9, CA 199 was 21 CAT scan of the chest abdomen pelvis on April 04, 2019 showed no lung mass large hiatal hernia in the mediastinum bilateral proximal moderate hydroureter without any active lesion no abdominal lymphadenopathy noted Assessment and plan Patient is a 78-year-old white woman with large hiatal hernia, anoxic brain injury after severe anemia and acute MA in July 2018 and since then she also had several major life event including filing for divorce. Has lost 41 pound of weight in the last 8-10 months, preliminary lab work and CAT scan of the chest abdomen pelvis does not show any evidence of malignancy. -I had long discussion with patient and her daughter on a video conference and explained that most common possibility could be due to significant hiatal hernia although other differential could include malabsorption versus thyroid problems versus hypoadrenalism, although possibility of malignancy cannot be ruled out it is somewhat less likely looking at normal CAT scan. Although she does have bilateral moderate hydronephrosis without any clear explanation. At this time I will further evaluate her by checking urinalysis, repeat CBC, CMP/fasting, hemoglobin A1c LDH, TSH and T4 HIV and cortisol level and guaiac stools 3, and bilateral mammogram. In the meantime I will also recommended patient to take protein powder drink twice a day/ensure /boast and we will reevaluate in couple of months and we will make further recommendation . In the meantime if she continued to have persistent weight loss she was advised to follow-up with scrap crane operator to make sure it is not related to hiatal hernia or malabsorption. This visit was completed via audio and visual due to the restrictions of the COVID-19 pandemic. All issues as below were discussed and addressed but no physical exam was performed. If it was felt that the patient should be evaluated in clinic then they were directed there. The patient verbally consented to visit. \ Thank you very much for allowing me to participate in care of this patient, should you have any further question please do not hesitate to contact me. Charting was completed using voice recognition technology and may include unintended errors. Janusz Schwartz MD Hematology-Oncology [facility] Office [facility] Office Outpatient Medication Profile: * Patient Currently Takes Medications as of 02-Jun-2019 12:24 documented in Structured Notes aspirin 81 mg oral delayed release tablet: Last Dose Taken: , 1 tab(s) orally once a day atorvastatin 80 mg oral tablet: Last Dose Taken: , 1 tab(s) orally once a day clopidogrel 75 mg oral tablet: Last Dose Taken: , 1 tab(s) orally once a day metoprolol tartrate 25 mg oral tablet: Last Dose Taken: omeprazole 40 mg oral delayed release capsule: Last Dose Taken: , 1 cap(s) orally once a day potassium: Last Dose Taken: sertraline 50 mg oral tablet: Last Dose Taken: , 1 tab(s) orally once a day torsemide 20 mg oral tablet: Last Dose Taken: , 1 tab(s) orally once a day multivitamin: Last Dose Taken: Family History: No Family History items are recorded in the problem list. Social History: Smoking Status: never smoker Tobacco Use: denies Alcohol Use: denies Drug Use: denies Patient Instructions: Instructions: urinalysis, repeat CBC, CMP/fasting, hemoglobin A1c LDH, TSH and T4 HIV and cortisol level and guaiac stools 3, and bilateral mammogram. Note Recipients: Mita Morton MD - [phone] Select Yes when ready to send to Provider(s) Listed Above: Note sent to providers named above Electronic Signatures: Janusz Schwartz) (Signed 02-Jun-2019 13:20) Authored: Patient Visit Information, History of Present Illness, Allergies and Outpatient Medication Profile, Problem List, Social History, Physical Exam, Patient Instructions, To Send Document via Auto Fax Last Updated: 02-Jun-2019 13:20 by Janusz Schwartz) Normal [facility] CT Abdomen Pelvis W Contrast on 04-04-2019 Patient Name: PREMA VILLALPANDO ---CT--- Exam Date/Time 04/04/2019 10:45:[address] Abdomen/Pelvis w/ IV Contrast (IV Onl Ordering Physician DO MORTON LISA Accession Number [id number] CPT4 Codes 64247 (CT Abdomen/Pelvis w/ IV Contrast (IV Onl) Reason For Exam abnormal weight loss Report CT CHEST ABDOMEN PELVIS WITH CONTRAST: CLINICAL INDICATION: Weight loss. TECHNIQUE: 1 mm axial images of the chest and 3mm axial images of the abdomen and pelvis obtained with 75 mL of Isoview intravenous contrast. Coronal and sagittal reconstructions were constructed. COMPARISON: None. FINDINGS: Lungs: The lungs demonstrate no opacification, consolidation or area of significant atelectasis. No parenchymal or pleural-based mass is noted. Pleural fluid: None. Heart/Great vessels: Dense coronary artery calcifications. Normal heart size. No pericardial effusion. No aortic aneurysm. Normal caliber of the main pulmonary artery. Mediastinum/Tim: Large hiatal hernia. No lymphadenopathy or mass identified. Soft tissues chest wall: Unremarkable. Osseous structures: No suspicious osseous lesions. Multilevel spondylosis. ABDOMEN: Stomach: Large hiatal hernia. Otherwise unremarkable. Liver: Normal size and contours. No focal lesion. Biliary tree: The gallbladder is not identified. There is pneumatosis of the common hepatic and common duct. The previously placed biliary stents described on the fluoroscopy images of February 15, 2019 are not identified on this exam. Spleen: Normal. Adrenals: Normal. Pancreas: Normal. Kidneys and ureters: Symmetric contrast excretion without evidence of hydronephrosis. No focal renal lesion is identified. Bilateral proximal moderate hydroureter without and obstructing lesion. Free fluid: None. Retroperitoneal/mesenteri c lymphadenopathy: None. Aorta: Aorta is normal in caliber.. Bowel: Normal appendix. No inflammatory change or bowel dilatation is noted. Abdominal wall/soft tissues: No ventral hernia is evident. Pelvic organs/viscera: The uterus is present. Pelvic lymphadenopathy: None. Osseous structures: Multilevel degenerative spondylosis. IMPRESSION: 1. No acute infectious or inflammatory process in the chest, abdomen, or pelvis. 2. The gallbladder is not identified. Nonspecific pneumatosis of the common hepatic and common duct. The previously placed biliary stents described on the fluoroscopy images of February 15, 2019 are not identified on this exam. 3. Dense coronary artery calcifications. 4. Large hiatal hernia. Report Dictated on --- Final --- Dictating Physician: MD MORTON JASON Signed Date and Time: 04/04/2019 2:55 pm Signed by: MD MORTON JASON Transcribed Date and Time: 04/04/2019 2:56 [place], [place] [facility] [employer] Incoming Radiology Results From [facility] - 04/04/2019 2:56 PM EST Patient Name: PREMA VILLALPANDO ---CT--- Exam Date/Time 04/04/2019 10:45:[address] Abdomen/Pelvis w/ IV Contrast (IV Onl Ordering Physician DO MORTON LISA Accession Number [id number] CPT4 Codes 72696 (CT Abdomen/Pelvis w/ IV Contrast (IV Onl) Reason For Exam abnormal weight loss Report CT CHEST ABDOMEN PELVIS WITH CONTRAST: CLINICAL INDICATION: Weight loss. TECHNIQUE: 1 mm axial images of the chest and 3mm axial images of the abdomen and pelvis obtained with 75 mL of Isoview intravenous contrast. Coronal and sagittal reconstructions were constructed. COMPARISON: None. FINDINGS: Lungs: The lungs demonstrate no opacification, consolidation or area of significant atelectasis. No parenchymal or pleural-based mass is noted. Pleural fluid: None. Heart/Great vessels: Dense coronary artery calcifications. Normal heart size. No pericardial effusion. No aortic aneurysm. Normal caliber of the main pulmonary artery. Mediastinum/Tim: Large hiatal hernia. No lymphadenopathy or mass identified. Soft tissues chest wall: Unremarkable. Osseous structures: No suspicious osseous lesions. Multilevel spondylosis. ABDOMEN: Stomach: Large hiatal hernia. Otherwise unremarkable. Liver: Normal size and contours. No focal lesion. Biliary tree: The gallbladder is not identified. There is pneumatosis of the common hepatic and common duct. The previously placed biliary stents described on the fluoroscopy images of February 15, 2019 are not identified on this exam. Spleen: Normal. Adrenals: Normal. Pancreas: Normal. Kidneys and ureters: Symmetric contrast excretion without evidence of hydronephrosis. No focal renal lesion is identified. Bilateral proximal moderate hydroureter without and obstructing lesion. Free fluid: None. Retroperitoneal/mesenteri c lymphadenopathy: None. Aorta: Aorta is normal in caliber.. Bowel: Normal appendix. No inflammatory change or bowel dilatation is noted. Abdominal wall/soft tissues: No ventral hernia is evident. Pelvic organs/viscera: The uterus is present. Pelvic lymphadenopathy: None. Osseous structures: Multilevel degenerative spondylosis. IMPRESSION: 1. No acute infectious or inflammatory process in the chest, abdomen, or pelvis. 2. The gallbladder is not identified. Nonspecific pneumatosis of the common hepatic and common duct. The previously placed biliary stents described on the fluoroscopy images of February 15, 2019 are not identified on this exam. 3. Dense coronary artery calcifications. 4. Large hiatal hernia. Report Dictated on --- Final --- Dictating Physician: MD MORTON JASON Signed Date and Time: 04/04/2019 2:55 pm Signed by: MD MORTON JASON Transcribed Date and Time: 04/04/2019 2:56 [place], [place] CT CHEST W CONTRASTon 2019 Patient Name: PREMA VILLALPANDO ---CT--- Exam Date/Time 04/04/2019 10:45:[address] Chest w/ Contrast Ordering Physician DO MORTON LISA Accession Number [id number] CPT4 Codes 73013 (), Q9967 (CT ISOVUE 370MG/[id number]&1 ) Reason For Exam abnormal weight loss Report CT CHEST ABDOMEN PELVIS WITH CONTRAST: CLINICAL INDICATION: Weight loss. TECHNIQUE: 1 mm axial images of the chest and 3mm axial images of the abdomen and pelvis obtained with 75 mL of Isoview intravenous contrast. Coronal and sagittal reconstructions were constructed. COMPARISON: None. FINDINGS: Lungs: The lungs demonstrate no opacification, consolidation or area of significant atelectasis. No parenchymal or pleural-based mass is noted. Pleural fluid: None. Heart/Great vessels: Dense coronary artery calcifications. Normal heart size. No pericardial effusion. No aortic aneurysm. Normal caliber of the main pulmonary artery. Mediastinum/Tim: Large hiatal hernia. No lymphadenopathy or mass identified. Soft tissues chest wall: Unremarkable. Osseous structures: No suspicious osseous lesions. Multilevel spondylosis. ABDOMEN: Stomach: Large hiatal hernia. Otherwise unremarkable. Liver: Normal size and contours. No focal lesion. Biliary tree: The gallbladder is not identified. There is pneumatosis of the common hepatic and common duct. The previously placed biliary stents described on the fluoroscopy images of February 15, 2019 are not identified on this exam. Spleen: Normal. Adrenals: Normal. Pancreas: Normal. Kidneys and ureters: Symmetric contrast excretion without evidence of hydronephrosis. No focal renal lesion is identified. Bilateral proximal moderate hydroureter without and obstructing lesion. Free fluid: None. Retroperitoneal/mesenteri c lymphadenopathy: None. Aorta: Aorta is normal in caliber.. Bowel: Normal appendix. No inflammatory change or bowel dilatation is noted. Abdominal wall/soft tissues: No ventral hernia is evident. Pelvic organs/viscera: The uterus is present. Pelvic lymphadenopathy: None. Osseous structures: Multilevel degenerative spondylosis. IMPRESSION: 1. No acute infectious or inflammatory process in the chest, abdomen, or pelvis. 2. The gallbladder is not identified. Nonspecific pneumatosis of the common hepatic and common duct. The previously placed biliary stents described on the fluoroscopy images of February 15, 2019 are not identified on this exam. 3. Dense coronary artery calcifications. 4. Large hiatal hernia. Report Dictated on --- Final --- Dictating Physician: MD MORTON JASON Signed Date and Time: 04/04/2019 2:55 pm Signed by: MD MORTON JASON Transcribed Date and Time: 04/04/2019 2:56 [place], [place] Incoming Radiology Results From [facility] - 04/04/2019 2:56 PM EST Patient Name: PREMA VILLALPANDO ---CT--- Exam Date/Time 04/04/2019 10:45:[address] Chest w/ Contrast Ordering Physician DO MORTON LISA Accession Number [id number] CPT4 Codes 25489 (), Q9967 (CT ISOVUE 370MG/[id number]&1 ) Reason For Exam abnormal weight loss Report CT CHEST ABDOMEN PELVIS WITH CONTRAST: CLINICAL INDICATION: Weight loss. TECHNIQUE: 1 mm axial images of the chest and 3mm axial images of the abdomen and pelvis obtained with 75 mL of Isoview intravenous contrast. Coronal and sagittal reconstructions were constructed. COMPARISON: None. FINDINGS: Lungs: The lungs demonstrate no opacification, consolidation or area of significant atelectasis. No parenchymal or pleural-based mass is noted. Pleural fluid: None. Heart/Great vessels: Dense coronary artery calcifications. Normal heart size. No pericardial effusion. No aortic aneurysm. Normal caliber of the main pulmonary artery. Mediastinum/Tim: Large hiatal hernia. No lymphadenopathy or mass identified. Soft tissues chest wall: Unremarkable. Osseous structures: No suspicious osseous lesions. Multilevel spondylosis. ABDOMEN: Stomach: Large hiatal hernia. Otherwise unremarkable. Liver: Normal size and contours. No focal lesion. Biliary tree: The gallbladder is not identified. There is pneumatosis of the common hepatic and common duct. The previously placed biliary stents described on the fluoroscopy images of February 15, 2019 are not identified on this exam. Spleen: Normal. Adrenals: Normal. Pancreas: Normal. Kidneys and ureters: Symmetric contrast excretion without evidence of hydronephrosis. No focal renal lesion is identified. Bilateral proximal moderate hydroureter without and obstructing lesion. Free fluid: None. Retroperitoneal/mesenteri c lymphadenopathy: None. Aorta: Aorta is normal in caliber.. Bowel: Normal appendix. No inflammatory change or bowel dilatation is noted. Abdominal wall/soft tissues: No ventral hernia is evident. Pelvic organs/viscera: The uterus is present. Pelvic lymphadenopathy: None. Osseous structures: Multilevel degenerative spondylosis. IMPRESSION: 1. No acute infectious or inflammatory process in the chest, abdomen, or pelvis. 2. The gallbladder is not identified. Nonspecific pneumatosis of the common hepatic and common duct. The previously placed biliary stents described on the fluoroscopy images of February 15, 2019 are not identified on this exam. 3. Dense coronary artery calcifications. 4. Large hiatal hernia. Report Dictated on --- Final --- Dictating Physician: MD MORTON JASON Signed Date and Time: 04/04/2019 2:55 pm Signed by: MD MORTON JASON Transcribed Date and Time: 04/04/2019 2:56 [facility], [place] XR ELBOW MINIMUM 3 VIEWS RIG HTon 04-01-2019 XR ELBOW MINIMUM 3 VIEWS RIGHT ORIGINAL XR ELBOW 3 VIEWS RIGHT CLINICAL STATEMENT: Pain following blunt trauma. COMPARISON: None FINDINGS: No acute fracture or dislocation is seen. There is no significant joint effusion. The joint spaces are maintained. There is no radiopaque foreign body. IMPRESSION: No acute fracture or dislocation. Interpreted By: Felton Bay DO Preliminary Report By: Felton Bay DO Electronically Signed By: Felton Bay DO Dictated Date: 04/01/2019 8:02:21 AM Prelim Date: 04/01/2019 8:02:21 AM Sign Date: 04/01/2019 8:02:36 AM Ordering Provider:Rakan [facility] ([place]) XR HAND MINIMUM 3 VIEWS RIG Ton 04-01-2019 XR HAND MINIMUM 3 VIEWS RIGHT ORIGINAL XR HAND 3 VIEWS RIGHT CLINICAL STATEMENT: Pain about the thumb following a fall.. COMPARISON: None FINDINGS: No acute fracture or dislocation is identified. The joint spaces are maintained. There is no radiopaque foreign body. IMPRESSION: No acute fracture or dislocation. Interpreted By: Felton Bay DO Preliminary Report By: Felton Bay DO Electronically Signed By: Felton Bay DO Dictated Date: 04/01/2019 8:03:53 AM Prelim Date: 04/01/2019 8:03:53 AM Sign Date: 04/01/2019 8:04:33 AM Ordering Provider:Rakan [facility] ([place]) Creatinine, Serumon 03-31-19 20 Creatinine [Mass/Vol] 0.77 mg/dL 0.52 - 1.25 mg/dL [place], [place] EGFR IF NonAfrican Samoan >60.0 >60 mL/min [place], [place] Comment on above: Source- MDRD equatio n with creatinine calibration to IDMS(NKDEP) eGFR not recommended for drug dose adjustment GFR/1.73 sq M predicted among blacks MDRD (S/P/Bld) [Vol rate/Area] mL/min/{1.73_m2} >60 mL/min [place], [place] Test Performed by [facility], [facility] , [address] HEAD OR BRAIN W/O CONTRAS Ton 02-24-2019 CT HEAD OR BRAIN W/O CONTRAST ORIGINAL CT HEAD OR BRAIN W/O CONTRAST Clinical Statement: fall, patient fell tonight and hit for head TECHNIQUE: Axial CT images from skull base to vertex without IV contrast. This exam was performed according to our departmental dose optimization program, and includes the following measures where applicable: automated exposure control, adjustment of the mAs and/or kVp according to patient size and/or exam, and an iterative reconstruction algorithm. COMPARISON: CT head 11/14/2018 FINDINGS: There is no intracranial hemorrhage, mass effect or abnormal extra-axial fluid collection. No CT evidence for acute infarction. The density in the larger dural venous sinuses is grossly normal. 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 Scattered foci of white matter hypoattenuation are noted in the cerebral white matter, nonspecific but compatible with mild chronic microvascular angiopathy. Atherosclerotic calcifications are present in the cavernous carotid arteries bilaterally. There is proportionate enlargement of the ventricular system and cortical sulci, compatible with mild parenchymal volume loss. The skull base and calvarium demonstrate no acute abnormality. The included paranasal sinuses and mastoid air cells are clear. IMPRESSION: No acute intracranial abnormality. I have personally reviewed the images of this examination and agree with the resident's findings and interpretation. Interpreted By: Wes Baird MD Preliminary Report By: Caty Cardona DO Electronically Signed By: Wes Baird MD Dictated Date: 02/24/2019 8:46:14 PM Prelim Date: 02/24/2019 8:48:29 PM Sign Date: 02/24/2019 8:54:43 PM Ordering Provider:Rakan [facility] ([place]) CBC Auto DifferentialOrdered By: Tj Muniz on 02-18-2019 Absolute Baso # 0.1 10*3/uL 0 - 0.2 10*3/uL [facility] Work Phone: Absolute Neut # 10.3 10*3/uL High 1.8 - 7 10*3/uL [facility] Work Phone: Basophils/100 WBC (Bld) 0.5 % 0 - 2 % [facility] Work Phone: Eosinophils (Bld) [#/Vol] 0.2 10*3/uL 0 - 0.5 10*3/uL [employer] Work Phone: [phone] Eosinophils/100 WBC (Bld) 1.2 % 1 - 6 % [employer] Work Phone: [phone] Erythrocyte distribution width (RBC) [Ratio] 12.7 % 11.5 - 14.5 % [employer] Work Phone: [phone] Granulocytes/100 WBC (Bld) 78.0 % 40 - 80 % [facility] Work Phone: [phone] Hematocrit (Bld) [Volume fraction] 32.8 % Low 35 - 47 % [employer] Work Phone: [phone] Hemoglobin (Bld) [Mass/Vol] 11.3 g/dL Low 11.7 - 16 g/dL [facility] Work Phone: [phone] Interpretation and review of laboratory results Abnormal [employer] Work Phone: [phone] Lymphocytes (Bld) [#/Vol] 1.9 10*3/uL 1 - 4.3 10*3/uL [employer] Work Phone: [phone] Lymphocytes/100 WBC (Bld) 14.8 % Low 20 - 40 % [employer] Work Phone: [phone] MCH (RBC) [Entitic mass] 33.4 pg 26 - 34 pg [employer] Work Phone: [phone] MCHC 34.3 % 32 - 36 % [employer] Work Phone: [phone] MCV (RBC) [Entitic vol] 97.3 fL 79 - 98 fL [employer] Work Phone: [phone] Monocytes (Bld) [#/Vol] 0.7 10*3/uL 0 - 0.8 10*3/uL [employer] Work Phone: [phone] Monocytes/100 WBC (Bld) 5.5 % 2 - 10 % [employer] Work Phone: [phone] Platelet mean volume (Bld) [Entitic vol] 10.6 fL High 7.4 - 10.4 fL [employer] Work Phone: [phone] Platelets (Bld) [#/Vol] 207 10*3/uL 140 - 440 10*3/uL [facility] Work Phone: RBC (Bld) [#/Vol] 3.37 10*6/uL Low 3.8 - 5.2 10*6/uL [facility] Work Phone: WBC (Bld) [#/Vol] 13.1 10*3/uL High 3.6 - 10.7 10*3/uL [facility] Work Phone: Test Performed by [facility], [address] [place] [address] [facility] Work Phone: Hemogram w/ Autodiffon 02-18 Abs Baso Cnt 0.1 10*3/uL Normal 0.0-0.2 [facility] Comment on above: Performed By: #### H EMDF, BMP3, LFT3, LIPA4, TROPN #### [address] [address] Abs Neutrophile Cnt 10.3 10*3/uL High 1.8-7.0 [facility] Comment on above: Performed By: #### H EMDF, BMP3, LFT3, LIPA4, TROPN #### [address] [address] Basophils/100 WBC (Bld) 0.5 % Normal 0.0-2.0 [facility] Comment on above: Performed By: #### H EMDF, BMP3, LFT3, LIPA4, TROPN #### [address] [address] Eosinophils (Bld) [#/Vol] 0.2 10*3/uL Normal 0.0-0.5 [facility] Comment on above: Performed By: #### H EMDF, BMP3, LFT3, LIPA4, TROPN #### [address] [address] Eosinophils/100 WBC (Bld) 1.2 % Normal 1.0-6.0 [facility] Comment on above: Performed By: #### H EMDF, BMP3, LFT3, LIPA4, TROPN #### [address] Erythrocyte distribution width (RBC) [Ratio] 12.7 % Normal 11.5-14.5 [facility] Comment on above: Performed By: #### H EMDF, BMP3, LFT3, LIPA4, TROPN #### [address] Granulocytes/100 WBC (Bld) 78.0 % Normal 40.0-80.0 [facility] Comment on above: Performed By: #### H EMDF, BMP3, LFT3, LIPA4, TROPN #### [address] Hematocrit (Bld) [Volume fraction] 32.8 % Low 35.0-47.0 [facility] Comment on above: Performed By: #### H EMDF, BMP3, LFT3, LIPA4, TROPN #### [address] Hemoglobin (Bld) [Mass/Vol] 11.3 g/dL Low 11.7-16.0 [facility] Comment on above: Performed By: #### H EMDF, BMP3, LFT3, LIPA4, TROPN #### [address] Lymphocytes (Bld) [#/Vol] 1.9 10*3/uL Normal 1.0-4.3 [facility] Comment on above: Performed By: #### H EMDF, BMP3, LFT3, LIPA4, TROPN #### [address] Lymphocytes/100 WBC (Bld) 14.8 % Low 20.0-40.0 [facility] Comment on above: Performed By: #### H EMDF, BMP3, LFT3, LIPA4, TROPN #### [address] MCH (RBC) [Entitic mass] 33.4 pg Normal 26.0-34.0 [facility] Comment on above: Performed By: #### H EMDF, BMP3, LFT3, LIPA4, TROPN #### [facility] [address] [place] MCHC (RBC) [Mass/Vol] 34.3 % Normal 32.0-36.0 [facility] Comment on above: Performed By: #### H EMDF, BMP3, LFT3, LIPA4, TROPN #### [address] [address] [place], [place] MCV (RBC) [Entitic vol] 97.3 fL Normal 79.0-98.0 [facility] Comment on above: Performed By: #### H EMDF, BMP3, LFT3, LIPA4, TROPN #### [address] [address] [place], [place] Monocytes (Bld) [#/Vol] 0.7 10*3/uL Normal 0.0-0.8 [facility] Comment on above: Performed By: #### H EMDF, BMP3, LFT3, LIPA4, TROPN #### [address] Monocytes/100 WBC (Bld) 5.5 % Normal 2.0-10.0 [facility] Comment on above: Performed By: #### H EMDF, BMP3, LFT3, LIPA4, TROPN #### [address] [address] [place] Platelet mean volume (Bld) [Entitic vol] 10.6 fL High 7.4-10.4 [facility] Comment on above: Performed By: #### H EMDF, BMP3, LFT3, LIPA4, TROPN #### [address] [address] [place] Platelets (Bld) [#/Vol] 207 10*3/uL Normal 140-440 [facility] Comment on above: Performed By: #### H EMDF, BMP3, LFT3, LIPA4, TROPN #### [address] RBC (Bld) [#/Vol] 3.37 10*6/uL Low 3.80-5.20 [facility] Comment on above: Performed By: #### H EMDF, BMP3, LFT3, LIPA4, TROPN #### [address] WBC (Bld) [#/Vol] 13.1 10*3/uL High 3.6-10.7 [facility] Comment on above: Performed By: #### H EMDF, BMP3, LFT3, LIPA4, TROPN #### [address] [address] [place], [place] Lipaseon 02-18-2019 Lipase [Catalytic activity/Vol] 211 U/L Normal 23-300 [facility] Comment on above: Performed By: #### H EMDF, BMP3, LFT3, LIPA4, TROPN #### [address] LipaseOrdered By: Tj Muniz on 02-18-2019 Lipase [Catalytic activity/Vol] 211 U/L 23 - 300 U/L [facility] Work Phone: Test Performed by [facility], [address] [place] [address] [facility] Work Phone: Basic Metabolic Panelon 02-08 Calcium [Mass/Vol] 8.6 mg/dL Normal 8.4-10.4 [facility] Comment on above: Performed By: #### H EMDF, BMP3, LFT3, LIPA4, TROPN #### [address] [address] [place], [place] Glucose [Mass/Vol] 125 mg/dL High 70-100 [facility] Comment on above: Performed By: #### H EMDF, BMP3, LFT3, LIPA4, TROPN #### [address] Urea nitrogen [Mass/Vol] 21 mg/dL High 7-20 [facility] Comment on above: Performed By: #### H EMDF, BMP3, LFT3, LIPA4, TROPN #### [address] Anion gap [Moles/Vol] 9 Normal [facility] Comment on above: Performed By: #### H EMDF, BMP3, LFT3, LIPA4, TROPN #### [address] [address] [place], [place] CO2 [Moles/Vol] 24 mmol/L Normal 22-30 [facility] Comment on above: Performed By: #### H EMDF, BMP3, LFT3, LIPA4, TROPN #### [address] [address] [place], [place] Creatinine [Mass/Vol] 0.81 mg/dL Normal 0.52-1.25 [facility] Comment on above: Performed By: #### H EMDF, BMP3, LFT3, LIPA4, TROPN #### [address] GFR/1.73 sq M predicted among blacks MDRD (S/P/Bld) [Vol rate/Area] mL/min/{1.73_m2} Normal >60 [facility] Comment on above: Performed By: #### H EMDF, BMP3, LFT3, LIPA4, TROPN #### [address] [address] [place], [place] GFR/1.73 sq M predicted among non-blacks MDRD (S/P/Bld) [Vol rate/Area] mL/min/{1.73_m2} Normal >60 [facility] Comment on above: Result Comment: Sour ce- MDRD equation with creatinine calibration to IDMS(NKDEP) eGFR not recommended for drug dose adjustment Performed By: #### H EMDF, BMP3, LFT3, LIPA4, TROPN #### [address] [address] [place], [place] Chloride [Moles/Vol] 106 mmol/L Normal 98-107 [facility] Comment on above: Performed By: #### H EMDF, BMP3, LFT3, LIPA4, TROPN #### [address] [address] [place], [place] Potassium [Moles/Vol] 4.1 mmol/L Normal 3.5-5.1 [facility] Comment on above: Performed By: #### H EMDF, BMP3, LFT3, LIPA4, TROPN #### [facility] [address] [place] [address] Sodium [Moles/Vol] 139 mmol/L Normal 135-145 [facility] Comment on above: Performed By: #### H EMDF, BMP3, LFT3, LIPA4, TROPN #### [facility] [address] [place] [address] Basic Metabolic PanelOrdered By: Tj Muniz on 02-17-2019 Anion gap [Moles/Vol] 9 mmol/L [facility] Work Phone: [phone] Calcium [Mass/Vol] 8.6 mg/dL 8.4 - 10. 4 mg/dL [facility] Work Phone: [phone] Chloride [Moles/Vol] 106 mmol/L 98 - 10 7 mmol/L [facility] Work Phone: [phone] CO2 [Moles/Vol] 24 mmol/L 22 - 30 mmol/L [facility] Work Phone: [phone] Creatinine [Mass/Vol] 0.81 mg/dL 0.52 - 1.25 mg/dL [facility] Work Phone: [phone] EGFR IF NonAfrican Samoan >60.0 >60 mL/min [facility] Work Phone: [phone] Comment on above: Source- MDRD equatio n with creatinine calibration to IDMS(NKDEP) eGFR not recommended for drug dose adjustment GFR/1.73 sq M.predicted among blacks MDRD (S/P/Bld) [Vol rate/Area] mL/min/{1.73_m2} >60 mL/min [facility] Work Phone: [phone] Glucose [Mass/Vol] 125 mg/dL High 70 - 100 mg/dL [facility] Work Phone: [phone] Potassium [Moles/Vol] 4.1 mmol/L 3.5 - 5.1 mmol/L [facility] Work Phone: [phone] Sodium [Moles/Vol] 139 mmol/L 135 - 145 mmol/L [facility] Work Phone: [phone] Urea nitrogen [Mass/Vol] 21 mg/dL High 7 - 20 mg/dL [facility] Work Phone: [phone] CBC Auto DifferentialOrdered By: Tj Muniz on 02-17-2019 Absolute Baso # 0.0 10*3/uL 0 - 0.2 10*3/uL [facility] Work Phone: [phone] Absolute Neut # 15.9 10*3/uL High 1.8 - 7 10*3/uL [facility] Work Phone: [phone] Basophils/100 WBC (Bld) 0.3 % 0 - 2 % [facility] Work Phone: [phone] Eosinophils (Bld) [#/Vol] 0.1 10*3/uL 0 - 0.5 10*3/uL [facility] Work Phone: [phone] Eosinophils/100 WBC (Bld) 0.5 % Low 1 - 6 % [employer] Work Phone: ) Erythrocyte distribution width (RBC) [Ratio] 12.6 % 11.5 - 14.5 % [employer] Work Phone: [phone] Granulocytes/100 WBC (Bld) 83.5 % High 40 - 80 % [facility] Work Phone: Hematocrit (Bld) [Volume fraction] 34.3 % Low 35 - 47 % [employer] Work Phone: [phone] Hemoglobin (Bld) [Mass/Vol] 11.6 g/dL Low 11.7 - 16 g/dL [facility] Work Phone: ) [phone] Interpretation and review of laboratory results Abnormal [facility] Work Phone: ) [phone] Lymphocytes (Bld) [#/Vol] 1.7 10*3/uL 1 - 4.3 10*3/uL [facility] Work Phone: ) 222 Lymphocytes/100 WBC (Bld) 9.1 % Low 20 - 40 % [facility] Work Phone: 222 MCH (RBC) [Entitic mass] 32.7 pg 26 - 34 pg [facility] Work Phone: [phone] MCHC 33.9 % 32 - 36 % [facility] Work Phone: MCV (RBC) [Entitic vol] 96.5 fL 79 - 98 fL [facility] Work Phone: [phone] Monocytes (Bld) [#/Vol] 1.3 10*3/uL High 0 - 0.8 10*3/uL [facility] Work Phone: [phone] Monocytes/100 WBC (Bld) 6.6 % 2 - 10 % [facility] Work Phone: [phone] Platelet mean volume (Bld) [Entitic vol] 10.3 fL 7.4 - 10.4 fL [facility] Work Phone: [phone] Platelets (Bld) [#/Vol] 244 10*3/uL 140 - 440 10*3/uL [facility] Work Phone: [phone] RBC (Bld) [#/Vol] 3.56 10*6/uL Low 3.8 - 5.2 10*6/uL [employer] Work Phone: [phone] WBC (Bld) [#/Vol] 19.0 10*3/uL High 3.6 - 10.7 10*3/uL [facility] Work Phone: [phone] Test Performed by [facility], [address] [place] [id number] [place], [place] [address] Work Phone: [phone] Hemogram w/ Autodiffon 02-17 Abs Baso Cnt 0.0 10*3/uL Normal 0.0-0.2 [facility] Comment on above: Performed By: #### H EMDF, BMP3, LFT3, LIPA4, TROPN #### [facility] [address] [address] Abs Neutrophile Cnt 15.9 10*3/uL High 1.8-7.0 [facility] Comment on above: Performed By: #### H EMDF, BMP3, LFT3, LIPA4, TROPN #### [facility] [address] [place] [address] Basophils/100 WBC (Bld) 0.3 % Normal 0.0-2.0 [facility] Comment on above: Performed By: #### H EMDF, BMP3, LFT3, LIPA4, TROPN #### [address] [address] [place] Eosinophils (Bld) [#/Vol] 0.1 10*3/uL Normal 0.0-0.5 [facility] Comment on above: Performed By: #### H EMDF, BMP3, LFT3, LIPA4, TROPN #### [address] [address] [place], [place] Eosinophils/100 WBC (Bld) 0.5 % Low 1.0-6.0 [facility] Comment on above: Performed By: #### H EMDF, BMP3, LFT3, LIPA4, TROPN #### [address] [address] [place], [place] Erythrocyte distribution width (RBC) [Ratio] 12.6 % Normal 11.5-14.5 [facility] Comment on above: Performed By: #### H EMDF, BMP3, LFT3, LIPA4, TROPN #### [address] Granulocytes/100 WBC (Bld) 83.5 % High 40.0-80.0 [facility] Comment on above: Performed By: #### H EMDF, BMP3, LFT3, LIPA4, TROPN #### [address] Hematocrit (Bld) [Volume fraction] 34.3 % Low 35.0-47.0 [facility] Comment on above: Performed By: #### H EMDF, BMP3, LFT3, LIPA4, TROPN #### [address] [address] [place], [place] Hemoglobin (Bld) [Mass/Vol] 11.6 g/dL Low 11.7-16.0 [facility] Comment on above: Performed By: #### H EMDF, BMP3, LFT3, LIPA4, TROPN #### [address] Lymphocytes (Bld) [#/Vol] 1.7 10*3/uL Normal 1.0-4.3 [facility] Comment on above: Performed By: #### H EMDF, BMP3, LFT3, LIPA4, TROPN #### [address] Lymphocytes/100 WBC (Bld) 9.1 % Low 20.0-40.0 [facility] Comment on above: Performed By: #### H EMDF, BMP3, LFT3, LIPA4, TROPN #### [address] MCH (RBC) [Entitic mass] 32.7 pg Normal 26.0-34.0 [facility] Comment on above: Performed By: #### H EMDF, BMP3, LFT3, LIPA4, TROPN #### [address] MCHC (RBC) [Mass/Vol] 33.9 % Normal 32.0-36.0 [facility] Comment on above: Performed By: #### H EMDF, BMP3, LFT3, LIPA4, TROPN #### [address] MCV (RBC) [Entitic vol] 96.5 fL Normal 79.0-98.0 [facility] Comment on above: Performed By: #### H EMDF, BMP3, LFT3, LIPA4, TROPN #### [address] Monocytes (Bld) [#/Vol] 1.3 10*3/uL High 0.0-0.8 [facility] Comment on above: Performed By: #### H EMDF, BMP3, LFT3, LIPA4, TROPN #### [address] Monocytes/100 WBC (Bld) 6.6 % Normal 2.0-10.0 [facility] Comment on above: Performed By: #### H EMDF, BMP3, LFT3, LIPA4, TROPN #### [address] Platelet mean volume (Bld) [Entitic vol] 10.3 fL Normal 7.4-10.4 [facility] Comment on above: Performed By: #### H EMDF, BMP3, LFT3, LIPA4, TROPN #### [address] [address] [place], [place] Platelets (Bld) [#/Vol] 244 10*3/uL Normal 140-440 [facility] Comment on above: Performed By: #### H EMDF, BMP3, LFT3, LIPA4, TROPN #### [address] [address] [place] RBC (Bld) [#/Vol] 3.56 10*6/uL Low 3.80-5.20 [facility] Comment on above: Performed By: #### H EMDF, BMP3, LFT3, LIPA4, TROPN #### [address] [address] [place], [place] WBC (Bld) [#/Vol] 19.0 10*3/uL High 3.6-10.7 [facility] Comment on above: Performed By: #### H EMDF, BMP3, LFT3, LIPA4, TROPN #### [address] Hepatic Functionon 0 ALP [Catalytic activity/Vol] 75 U/L Normal 38-126 [facility] Comment on above: Performed By: #### H EMDF, BMP3, LFT3, LIPA4, TROPN #### [address] [place] [address] [place], [place] ALT [Catalytic activity/Vol] 60 U/L Normal 13-69 [facility] Comment on above: Performed By: #### H EMDF, BMP3, LFT3, LIPA4, TROPN #### [address] AST [Catalytic activity/Vol] 62 U/L High 15-46 [facility] Comment on above: Performed By: #### H EMDF, BMP3, LFT3, LIPA4, TROPN #### [address] [address] [place], [place] Bilirubin [Mass/Vol] 0.5 mg/dL Normal 0.2-1.3 [facility] Comment on above: Performed By: #### H EMDF, BMP3, LFT3, LIPA4, TROPN #### [facility] [address] [place], [place] Bilirubin.direct [Mass/Vol] 0.0 mg/dL Normal 0.0-0.3 [facility] Comment on above: Performed By: #### H EMDF, BMP3, LFT3, LIPA4, TROPN #### [facility] [address] [place], [place] Protein [Mass/Vol] 5.9 g/dL Low 6.3-8.2 [facility] Comment on above: Performed By: #### H EMDF, BMP3, LFT3, LIPA4, TROPN #### [address] [address] [place] Albumin [Mass/Vol] 3.2 g/dL Low 3.5-5.0 [facility] Comment on above: Performed By: #### H EMDF, BMP3, LFT3, LIPA4, TROPN #### [facility] [address] [place], [place] Hepatic Function PanelOrdere d By: Tj Muniz on 02-17-2019 Albumin [Mass/Vol] 3.2 g/dL Low 3.5 - 5 g/dL [facility] Work Phone: ALP [Catalytic activity/Vol] 75 U/L 38 - 126 U/L [facility] Work Phone: [phone] ALT [Catalytic activity/Vol] 60 U/L 13 - 69 U/L [facility] Work Phone: [phone] AST [Catalytic activity/Vol] 62 U/L High 15 - 46 U/L [facility] Work Phone: Bilirubin [Mass/Vol] 0.5 mg/dL 0.2 - 1 .3 mg/dL [facility] Work Phone: Bilirubin.indirect [Mass/Vol] 0.0 mg/dL 0 - 0.3 mg/dL [facility] Work Phone: Protein [Mass/Vol] 5.9 g/dL Low 6.3 - 8.2 g/dL [facility] Work Phone: Lipaseon 02-17-2019 Lipase [Catalytic activity/Vol] 586 U/L High 23-300 [facility] Comment on above: Performed By: #### H EMDF, BMP3, LFT3, LIPA4, TROPN #### [facility] [address] [place] [address] LipaseOrdered By: Tj Muniz on 02-17-2019 Lipase [Catalytic activity/Vol] 586 U/L High 23 - 300 U/L [facility] Work Phone: No Panel InformationOrdered By: Tj Muniz on 02-17-2019 Interpretation and review of laboratory results Abnormal [facility] Work Phone: Test Performed by [facility], [address] [place] [id number] [place] [address] Work Phone: Basic Metabolic Panelon Calcium [Mass/Vol] 9.4 mg/dL Normal 8.4-10.4 [facility] Comment on above: Performed By: #### H EMDF, BMP3, LFT3, LIPA4, TROPN #### [address] [address] Glucose [Mass/Vol] 182 mg/dL High 70-100 [facility] Comment on above: Performed By: #### H EMDF, BMP3, LFT3, LIPA4, TROPN #### [address] [address] Urea nitrogen [Mass/Vol] 13 mg/dL Normal 7-20 [facility] Comment on above: Performed By: #### H EMDF, BMP3, LFT3, LIPA4, TROPN #### [address] [address] Anion gap [Moles/Vol] 11 Normal [facility] Comment on above: Performed By: #### H EMDF, BMP3, LFT3, LIPA4, TROPN #### [address] CO2 [Moles/Vol] 25 mmol/L Normal 22-30 [facility] Comment on above: Performed By: #### H EMDF, BMP3, LFT3, LIPA4, TROPN #### [address] Creatinine [Mass/Vol] 0.74 mg/dL Normal 0.52-1.25 [facility] Comment on above: Performed By: #### H EMDF, BMP3, LFT3, LIPA4, TROPN #### [address] GFR/1.73 sq M predicted among blacks MDRD (S/P/Bld) [Vol rate/Area] mL/min/{1.73_m2} Normal >60 [facility] Comment on above: Performed By: #### H EMDF, BMP3, LFT3, LIPA4, TROPN #### [address] GFR/1.73 sq M predicted among non-blacks MDRD (S/P/Bld) [Vol rate/Area] mL/min/{1.73_m2} Normal >60 [facility] Comment on above: Result Comment: Sour ce- MDRD equation with creatinine calibration to IDMS(NKDEP) eGFR not recommended for drug dose adjustment Performed By: #### H EMDF, BMP3, LFT3, LIPA4, TROPN #### [address] Potassium [Moles/Vol] 4.2 mmol/L Normal 3.5-5.1 [facility] Comment on above: Performed By: #### H EMDF, BMP3, LFT3, LIPA4, TROPN #### [address] Sodium [Moles/Vol] 140 mmol/L Normal 135-145 [facility] Comment on above: Performed By: #### H EMDF, BMP3, LFT3, LIPA4, TROPN #### [address] [place] [address] Chloride [Moles/Vol] 105 mmol/L Normal 98-107 [facility] Comment on above: Performed By: #### H EMDF, BMP3, LFT3, LIPA4, TROPN #### [facility] [address] [place] [address] Basic Metabolic PanelOrdered By: Sharmila Lr on 02-16-2019 Anion gap [Moles/Vol] 11 mmol/L [facility] [place] Work Phone: [phone] Calcium [Mass/Vol] 9.4 mg/dL 8.4 - 10. 4 mg/dL [facility] Work Phone: [phone] Chloride [Moles/Vol] 105 mmol/L 98 - 10 7 mmol/L [facility] Work Phone: [phone] CO2 [Moles/Vol] 25 mmol/L 22 - 30 mmol/L [facility] Work Phone: [phone] Creatinine [Mass/Vol] 0.74 mg/dL 0.52 - 1.25 mg/dL [facility] Work Phone: [phone] EGFR IF NonAfrican Samoan >60.0 >60 mL/min [facility] Work Phone: [phone] Comment on above: Source- MDRD equatio n with creatinine calibration to IDMS(NKDEP) eGFR not recommended for drug dose adjustment GFR/1.73 sq M.predicted among blacks MDRD (S/P/Bld) [Vol rate/Area] mL/min/{1.73_m2} >60 mL/min [facility] Work Phone: [phone] Glucose [Mass/Vol] 182 mg/dL High 70 - 100 mg/dL [facility] Work Phone: [phone] Potassium [Moles/Vol] 4.2 mmol/L 3.5 - 5.1 mmol/L [facility] Work Phone: [phone] Sodium [Moles/Vol] 140 mmol/L 135 - 145 mmol/L [facility] Work Phone: [phone] Urea nitrogen [Mass/Vol] 13 mg/dL 7 - 20 mg/dL [facility] Work Phone: [phone] CBC Auto DifferentialOrdered By: Sharmila Lr on 02-16-2019 Erythrocyte distribution width (RBC) [Ratio] 12.3 % 11.5 - 14.5 % [employer] Work Phone: [phone] Hematocrit (Bld) [Volume fraction] 37.3 % 35 - 47 % [employer] Work Phone: Hemoglobin (Bld) [Mass/Vol] 12.6 g/dL 11.7 - 16 g/dL [employer] Work Phone: [phone] Interpretation and review of laboratory results Abnormal [employer] Work Phone: ) MCH (RBC) [Entitic mass] 32.8 pg 26 - 34 pg [employer] Work Phone: ) MCHC 33.8 % 32 - 36 % [employer] Work Phone: ) MCV (RBC) [Entitic vol] 97.2 fL 79 - 98 fL [employer] Work Phone: ) Platelet mean volume (Bld) [Entitic vol] 10.1 fL 7.4 - 10.4 fL [employer] Work Phone: [phone] Platelets (Bld) [#/Vol] 210 10*3/uL 140 - 440 10*3/uL [employer] Work Phone: ) 222 RBC (Bld) [#/Vol] 3.84 10*6/uL 3.8 - 5.2 10*6/uL [employer] Work Phone: [phone] WBC (Bld) [#/Vol] 22.3 10*3/uL High 3.6 - 10.7 10*3/uL [employer] Work Phone: 1) Test Performed by [facility], [address] [place] [address] [facility] Work Phone: [phone] Hemogram w/ Autodiffon 02-16 Erythrocyte distribution width (RBC) [Ratio] 12.3 % Normal 11.5-14.5 [facility] Comment on above: Performed By: #### H EMDF, BMP3, LFT3, LIPA4, TROPN #### [facility] [place] [address] Hematocrit (Bld) [Volume fraction] 37.3 % Normal 35.0-47.0 [facility] Comment on above: Performed By: #### H EMDF, BMP3, LFT3, LIPA4, TROPN #### [address] [address] [place], [place] Hemoglobin (Bld) [Mass/Vol] 12.6 g/dL Normal 11.7-16.0 [facility] Comment on above: Performed By: #### H EMDF, BMP3, LFT3, LIPA4, TROPN #### [address] MCH (RBC) [Entitic mass] 32.8 pg Normal 26.0-34.0 [facility] Comment on above: Performed By: #### H EMDF, BMP3, LFT3, LIPA4, TROPN #### [address] MCHC (RBC) [Mass/Vol] 33.8 % Normal 32.0-36.0 [facility] Comment on above: Performed By: #### H EMDF, BMP3, LFT3, LIPA4, TROPN #### [address] MCV (RBC) [Entitic vol] 97.2 fL Normal 79.0-98.0 [facility] Comment on above: Performed By: #### H EMDF, BMP3, LFT3, LIPA4, TROPN #### [address] Platelet mean volume (Bld) [Entitic vol] 10.1 fL Normal 7.4-10.4 [facility] Comment on above: Performed By: #### H EMDF, BMP3, LFT3, LIPA4, TROPN #### [address] Platelets (Bld) [#/Vol] 210 10*3/uL Normal 140-440 [facility] Comment on above: Performed By: #### H EMDF, BMP3, LFT3, LIPA4, TROPN #### [address] [place] [address], [place] RBC (Bld) [#/Vol] 3.84 10*6/uL Normal 3.80-5.20 [facility] Comment on above: Performed By: #### H EMDF, BMP3, LFT3, LIPA4, TROPN #### [address] WBC (Bld) [#/Vol] 22.3 10*3/uL High 3.6-10.7 [facility] Comment on above: Performed By: #### H EMDF, BMP3, LFT3, LIPA4, TROPN #### [address] Hepatic Functionon 0 ALP [Catalytic activity/Vol] 83 U/L Normal 38-126 [facility] Comment on above: Performed By: #### H EMDF, BMP3, LFT3, LIPA4, TROPN #### [address] ALT [Catalytic activity/Vol] 81 U/L High 13-69 [facility] Comment on above: Performed By: #### H EMDF, BMP3, LFT3, LIPA4, TROPN #### [address] [address] [place], [place] AST [Catalytic activity/Vol] 100 U/L High 15-46 [facility] Comment on above: Performed By: #### H EMDF, BMP3, LFT3, LIPA4, TROPN #### [address] [address] [place] Bilirubin [Mass/Vol] 0.5 mg/dL Normal 0.2-1.3 [facility] Comment on above: Performed By: #### H EMDF, BMP3, LFT3, LIPA4, TROPN #### [address] Protein [Mass/Vol] 6.7 g/dL Normal 6.3-8.2 [facility] Comment on above: Performed By: #### H EMDF, BMP3, LFT3, LIPA4, TROPN #### [facility] [address] [place], [place] Bilirubin.direct [Mass/Vol] 0.0 mg/dL Normal 0.0-0.3 [facility] Comment on above: Performed By: #### H EMDF, BMP3, LFT3, LIPA4, TROPN #### [facility] [address] [place] Albumin [Mass/Vol] 3.9 g/dL Normal 3.5-5.0 [facility] Comment on above: Performed By: #### H EMDF, BMP3, LFT3, LIPA4, TROPN #### [facility] [address] [place], [place] Hepatic Function PanelOrdere d By: Sharmila Lr on 02-16-2019 Albumin [Mass/Vol] 3.9 g/dL 3.5 - 5 g/dL [facility] Work Phone: ALP [Catalytic activity/Vol] 83 U/L 38 - 126 U/L [facility] Work Phone: [phone] ALT [Catalytic activity/Vol] 81 U/L High 13 - 69 U/L [facility] Work Phone: AST [Catalytic activity/Vol] 100 U/L High 15 - 46 U/L [facility] Work Phone: Bilirubin [Mass/Vol] 0.5 mg/dL 0.2 - 1 .3 mg/dL [facility] Work Phone: Bilirubin.indirect [Mass/Vol] 0.0 mg/dL 0 - 0.3 mg/dL [facility] Work Phone: [phone] Protein [Mass/Vol] 6.7 g/dL 6.3 - 8.2 g/dL [facility] Work Phone: Lipaseon 02-16-2019 Lipase [Catalytic activity/Vol] 1101 U/L High 23-300 [facility] Comment on above: Performed By: #### H EMDF, BMP3, LFT3, LIPA4, TROPN #### [facility] [address] [place], [place] LipaseOrdered By: Tj Muniz on 02-16-2019 Interpretation and review of laboratory results Abnormal [facility] Work Phone: Lipase [Catalytic activity/Vol] 1101 U/L High 23 - 300 U/L [facility] Work Phone: Test Performed by [facility], [address] [place] [address] [facility] Work Phone: Manual Diffon 02-16-2019 Abs Lymph Cnt 0.9 10*3/uL Low 1.1-4.5 [facility] Comment on above: Performed By: #### H EMDF, BMP3, LFT3, LIPA4, TROPN #### [address] Abs Monocyte Cnt 0.9 10*3/uL Normal 0.2-1.1 [facility] Comment on above: Performed By: #### H EMDF, BMP3, LFT3, LIPA4, TROPN #### [address] Abs Neutrophile Cnt 20.5 10*3/uL High 2.2-8.2 [facility] Comment on above: Performed By: #### H EMDF, BMP3, LFT3, LIPA4, TROPN #### [address] Bands 15 % High 0-3 [facility] Comment on above: Performed By: #### H EMDF, BMP3, LFT3, LIPA4, TROPN #### [address] [address] [place], [place] Lymphocytes 4 % Low 20-40 [facility] Comment on above: Performed By: #### H EMDF, BMP3, LFT3, LIPA4, TROPN #### [address] Monocytes 4 % Normal 2-10 [facility] Comment on above: Performed By: #### H EMDF, BMP3, LFT3, LIPA4, TROPN #### [address] RBC morphology finding Nom (Bld) Normal Normal [facility] Comment on above: Performed By: #### H EMDF, BMP3, LFT3, LIPA4, TROPN #### [address] Seg Neutrophils 77 % Normal 40-80 [facility] Comment on above: Performed By: #### H EMDF, BMP3, LFT3, LIPA4, TROPN #### [address] Abs Baso Cnt 0.0 10*3/uL Normal 0.0-0.2 [facility] Comment on above: Performed By: #### H EMDF, BMP3, LFT3, LIPA4, TROPN #### [address] Abs Eosin Cnt 0.0 10*3/uL Normal 0.0-0.5 [facility] Comment on above: Performed By: #### H EMDF, BMP3, LFT3, LIPA4, TROPN #### [address] Basophils 0 % Normal 0-2 [facility] Comment on above: Performed By: #### H EMDF, BMP3, LFT3, LIPA4, TROPN #### [address] Cells counted 100 Normal [facility] Comment on above: Performed By: #### H EMDF, BMP3, LFT3, LIPA4, TROPN #### [address] Eosinophils 0 % Low 1-6 [facility] Comment on above: Performed By: #### H EMDF, BMP3, LFT3, LIPA4, TROPN #### [address] Manual DifferentialOrdered B y: Lisa Smiley on 02-16-2019 Absolute Baso # 0.0 10*3/uL 0 - 0.2 10*3/uL [facility] Work Phone: Absolute Eos # 0.0 10*3/uL 0 - 0.5 10*3/uL [facility] Work Phone: Absolute Lymph # 0.9 10*3/uL Low 1.1 - 4.5 10*3/uL [facility] Work Phone: [phone] Absolute Bandera # 0.9 10*3/uL 0.2 - 1.1 10*3/uL [facility] Work Phone: Absolute Neut # 20.5 10*3/uL High 2.2 - 8.2 10*3/uL [facility] Work Phone: Bands 15 % High 0 - 3 % [facility] Work Phone: Basophils 0 % 0 - 2 % [facility] Work Phone: [phone] Eosinophils 0 % Low 1 - 6 % [facility] Work Phone: [phone] Interpretation and review of laboratory results Abnormal [facility] Work Phone: [phone] Lymphocytes 4 % Low 20 - 40 % [facility] Work Phone: [phone] Monocytes 4 % 2 - 10 % [facility] Work Phone: [phone] RBC Morphology Normal [facility] Work Phone: [phone] Seg Neutrophils 77 % 40 - 80 % [facility] Work Phone: [phone] TOTAL CELLS COUNTED 100 [facility] Work Phone: [phone] Test Performed by [facility], [address] [place] [address] [facility] Work Phone: [phone] Panel InformationOrdered By: Sharmila Lr on 02-16-2019 Interpretation and review of laboratory results Abnormal [facility] Work Phone: Test Performed by [facility], [address] [place] [address] [facility] Work Phone: [phone] Basic Metabolic Panelon Calcium [Mass/Vol] 9.6 mg/dL Normal 8.4-10.4 [facility] Comment on above: Performed By: #### H EMDF, BMP3, LFT3, LIPA4, TROPN #### [facility] [place] [address] Glucose [Mass/Vol] 110 mg/dL High 70-100 [facility] Comment on above: Performed By: #### H EMDF, BMP3, LFT3, LIPA4, TROPN #### [address] [address] [place] Urea nitrogen [Mass/Vol] 10 mg/dL Normal 7-20 [facility] Comment on above: Performed By: #### H EMDF, BMP3, LFT3, LIPA4, TROPN #### [address] [address] [place] Anion gap [Moles/Vol] 8 Normal [facility] Comment on above: Performed By: #### H EMDF, BMP3, LFT3, LIPA4, TROPN #### [address] [address] [place] CO2 [Moles/Vol] 28 mmol/L Normal 22-30 [facility] Comment on above: Performed By: #### H EMDF, BMP3, LFT3, LIPA4, TROPN #### [address] [address] [place] Creatinine [Mass/Vol] 0.87 mg/dL Normal 0.52-1.25 [facility] Comment on above: Performed By: #### H EMDF, BMP3, LFT3, LIPA4, TROPN #### [address] [address] [place], [place] GFR/1.73 sq M predicted among blacks MDRD (S/P/Bld) [Vol rate/Area] mL/min/{1.73_m2} Normal >60 [facility] Comment on above: Performed By: #### H EMDF, BMP3, LFT3, LIPA4, TROPN #### [address] [address] [place] GFR/1.73 sq M predicted among non-blacks MDRD (S/P/Bld) [Vol rate/Area] mL/min/{1.73_m2} Normal >60 [facility] Comment on above: Result Comment: Sour ce- MDRD equation with creatinine calibration to IDMS(NKDEP) eGFR not recommended for drug dose adjustment Performed By: #### H EMDF, BMP3, LFT3, LIPA4, TROPN #### [facility] [address] [place] [address] Chloride [Moles/Vol] 104 mmol/L Normal 98-107 [facility] Comment on above: Performed By: #### H EMDF, BMP3, LFT3, LIPA4, TROPN #### [facility] [address] [place] Potassium [Moles/Vol] 4.0 mmol/L Normal 3.5-5.1 [facility] Comment on above: Performed By: #### H EMDF, BMP3, LFT3, LIPA4, TROPN #### [address] [address] [place], [place] Sodium [Moles/Vol] 141 mmol/L Normal 135-145 [facility] Comment on above: Performed By: #### H EMDF, BMP3, LFT3, LIPA4, TROPN #### [address] [address] [place] Basic Metabolic PanelOrdered By: Mark Chen on 02-15-2019 Anion gap [Moles/Vol] 8 mmol/L [facility] Work Phone: Calcium [Mass/Vol] 9.6 mg/dL 8.4 - 10. 4 mg/dL [facility] Work Phone: Chloride [Moles/Vol] 104 mmol/L 98 - 10 7 mmol/L [facility] Work Phone: CO2 [Moles/Vol] 28 mmol/L 22 - 30 mmol/L [facility] Work Phone: [phone] Creatinine [Mass/Vol] 0.87 mg/dL 0.52 - 1.25 mg/dL [facility] Work Phone: EGFR IF NonAfrican Samoan >60.0 >60 mL/min [facility] Work Phone: Comment on above: Source- MDRD equatio n with creatinine calibration to IDMS(NKDEP) eGFR not recommended for drug dose adjustment GFR/1.73 sq M.predicted among blacks MDRD (S/P/Bld) [Vol rate/Area] mL/min/{1.73_m2} >60 mL/min [facility] Work Phone: [phone] Glucose [Mass/Vol] 110 mg/dL High 70 - 100 mg/dL [facility] Work Phone: [phone]() 222 Potassium [Moles/Vol] 4.0 mmol/L 3.5 - 5.1 mmol/L [facility] Work Phone: [phone] Sodium [Moles/Vol] 141 mmol/L 135 - 145 mmol/L [facility] Work Phone: [phone] Urea nitrogen [Mass/Vol] 10 mg/dL 7 - 20 mg/dL [facility] Work Phone: [phone] CBC Auto DifferentialOrdered By: Mark Chen on 02-15-2019 Absolute Baso # 0.1 10*3/uL 0 - 0.2 10*3/uL [facility] Work Phone: [phone] Absolute Neut # 5.0 10*3/uL 1.8 - 7 10*3/uL [facility] Work Phone: [phone]() 222 Basophils/100 WBC (Bld) 0.9 % 0 - 2 % [facility] Work Phone: [phone]) 222 Eosinophils (Bld) [#/Vol] 0.2 10*3/uL 0 - 0.5 10*3/uL [facility] Work Phone: [phone] 222 Eosinophils/100 WBC (Bld) 3.0 % 1 - 6 % [facility] Work Phone: [phone] Erythrocyte distribution width (RBC) [Ratio] 12.1 % 11.5 - 14.5 % [facility] Work Phone: [phone]() 222 Granulocytes/100 WBC (Bld) 67.7 % 40 - 80 % [facility] Work Phone: [phone] Hematocrit (Bld) [Volume fraction] 36.6 % 35 - 47 % [facility] Work Phone: [phone] 222 Hemoglobin (Bld) [Mass/Vol] 12.8 g/dL 11.7 - 16 g/dL [facility] Work Phone: [phone] Lymphocytes (Bld) [#/Vol] 1.6 10*3/uL 1 - 4.3 10*3/uL [facility] Work Phone: [phone] Lymphocytes/100 WBC (Bld) 21.4 % 20 - 40 % [facility] Work Phone: [phone] MCH (RBC) [Entitic mass] 32.9 pg 26 - 34 pg [facility] Work Phone: [phone] MCHC 34.8 % 32 - 36 % [facility] Work Phone: [phone] MCV (RBC) [Entitic vol] 94.4 fL 79 - 98 fL [facility] Work Phone: [phone] Monocytes (Bld) [#/Vol] 0.5 10*3/uL 0 - 0.8 10*3/uL [facility] Work Phone: [phone] Monocytes/100 WBC (Bld) 7.0 % 2 - 10 % [facility] Work Phone: [phone] Platelet mean volume (Bld) [Entitic vol] 10.3 fL 7.4 - 10.4 fL [facility] Work Phone: [phone] Platelets (Bld) [#/Vol] 223 10*3/uL 140 - 440 10*3/uL [facility] Work Phone: [phone] RBC (Bld) [#/Vol] 3.88 10*6/uL 3.8 - 5.2 10*6/uL [facility] Work Phone: [phone] WBC (Bld) [#/Vol] 7.4 10*3/uL 3.6 - 10.7 10*3/uL [facility] Work Phone: [phone] Test Performed by [address] [address] [facility] Work Phone: [phone] FL ERCP BILIARY AND PANCREAT IC S&IOrdered By: Lisa Smiley on 02-15-2019 Patient Name: PREMA VILLALPANDO ---Fluoroscopy--- Exam Date/Time 02/15/2019 08:51:55 EST Exam RF ERCP Biliary and Pancreatic Duct Ordering Physician [id number] LISA RODRIGEZ Accession Number [id number]4 Codes 16476 () Reason For Exam cbd stones Report CLINICAL INFORMATION: Choledochal stones. FLUOROSCOPY USED: < 1 minute, 0 cine run(s), and 4 fluoro spot(s) captured. FINDINGS: An ERCP is performed. The common bile duct has been cannulated. Contrast is seen in a nondilated common bile duct. No definite choledochal stones are appreciated on the included images. The last image demonstrates placement of plastic biliary and pancreatic stents. IMPRESSION: 1. No significant biliary dilatation. 2. No definite choledochal stones are appreciated on the included images. 3. The last image demonstrates placement of plastic biliary and pancreatic stents. Fluoro time per Dr. Davis in endoscopy. Report Dictated on --- Final --- Dictated: 02/15/2019 8:39 am Dictating Physician: MD FONTENOT JEFFREY Signed Date and Time: 02/15/2019 8:42 am Signed by: MD FONTENOT JEFFREY Transcribed Date and Time: 02/15/2019 8:39 [facility] Work Phone: [facility] - 02/15/2019 8:52 AM EST Patient Name: PREMA VILLALPANDO ---Fluoroscopy--- Exam Date/Time 02/15/2019 08:51:55 EST Exam RF ERCP Biliary and Pancreatic Duct Ordering Physician LISA RICH Accession Number [id number] [facility] Codes 81595 () Reason For Exam cbd stones Report CLINICAL INFORMATION: Choledochal stones. FLUOROSCOPY USED: < 1 minute, 0 cine run(s), and 4 fluoro spot(s) captured. FINDINGS: An ERCP is performed. The common bile duct has been cannulated. Contrast is seen in a nondilated common bile duct. No definite choledochal stones are appreciated on the included images. The last image demonstrates placement of plastic biliary and pancreatic stents. IMPRESSION: 1. No significant biliary dilatation. 2. No definite choledochal stones are appreciated on the included images. 3. The last image demonstrates placement of plastic biliary and pancreatic stents. Fluoro time per Dr. Davis in endoscopy. Report Dictated on --- Final --- Dictated: 02/15/2019 8:39 am Dictating Physician: MD FONTENOT JEFFREY Signed Date and Time: 02/15/2019 8:42 am Signed by: MD FONTENOT JEFFREY Transcribed Date and Time: 02/15/2019 8:39 [facility] Work Phone: Hemogram w/ Autodiffon 02-15 Abs Baso Cnt 0.1 10*3/uL Normal 0.0-0.2 [facility] Comment on above: Performed By: #### H EMDF, BMP3, LFT3, LIPA4, TROPN #### [address] Abs Neutrophile Cnt 5.0 10*3/uL Normal 1.8-7.0 [facility] Comment on above: Performed By: #### H EMDF, BMP3, LFT3, LIPA4, TROPN #### [address] Basophils/100 WBC (Bld) 0.9 % Normal 0.0-2.0 [facility] Comment on above: Performed By: #### H EMDF, BMP3, LFT3, LIPA4, TROPN #### [address] Eosinophils (Bld) [#/Vol] 0.2 10*3/uL Normal 0.0-0.5 [facility] Comment on above: Performed By: #### H EMDF, BMP3, LFT3, LIPA4, TROPN #### [address] Eosinophils/100 WBC (Bld) 3.0 % Normal 1.0-6.0 [facility] Comment on above: Performed By: #### H EMDF, BMP3, LFT3, LIPA4, TROPN #### [address] Erythrocyte distribution width (RBC) [Ratio] 12.1 % Normal 11.5-14.5 [facility] Comment on above: Performed By: #### H EMDF, BMP3, LFT3, LIPA4, TROPN #### [address] Granulocytes/100 WBC (Bld) 67.7 % Normal 40.0-80.0 [facility] Comment on above: Performed By: #### H EMDF, BMP3, LFT3, LIPA4, TROPN #### [address] Hematocrit (Bld) [Volume fraction] 36.6 % Normal 35.0-47.0 [facility] Comment on above: Performed By: #### H EMDF, BMP3, LFT3, LIPA4, TROPN #### [address] [address] [place], [place] Hemoglobin (Bld) [Mass/Vol] 12.8 g/dL Normal 11.7-16.0 [facility] Comment on above: Performed By: #### H EMDF, BMP3, LFT3, LIPA4, TROPN #### [address] Lymphocytes (Bld) [#/Vol] 1.6 10*3/uL Normal 1.0-4.3 [facility] Comment on above: Performed By: #### H EMDF, BMP3, LFT3, LIPA4, TROPN #### [address] Lymphocytes/100 WBC (Bld) 21.4 % Normal 20.0-40.0 [facility] Comment on above: Performed By: #### H EMDF, BMP3, LFT3, LIPA4, TROPN #### [address] MCH (RBC) [Entitic mass] 32.9 pg Normal 26.0-34.0 [facility] Comment on above: Performed By: #### H EMDF, BMP3, LFT3, LIPA4, TROPN #### [address] MCHC (RBC) [Mass/Vol] 34.8 % Normal 32.0-36.0 [facility] Comment on above: Performed By: #### H EMDF, BMP3, LFT3, LIPA4, TROPN #### [address] [address] [place] MCV (RBC) [Entitic vol] 94.4 fL Normal 79.0-98.0 [facility] Comment on above: Performed By: #### H EMDF, BMP3, LFT3, LIPA4, TROPN #### [address] [address] [place], [place] Monocytes (Bld) [#/Vol] 0.5 10*3/uL Normal 0.0-0.8 [facility] Comment on above: Performed By: #### H EMDF, BMP3, LFT3, LIPA4, TROPN #### [address] Monocytes/100 WBC (Bld) 7.0 % Normal 2.0-10.0 [facility] Comment on above: Performed By: #### H EMDF, BMP3, LFT3, LIPA4, TROPN #### [address] Platelet mean volume (Bld) [Entitic vol] 10.3 fL Normal 7.4-10.4 [facility] Comment on above: Performed By: #### H EMDF, BMP3, LFT3, LIPA4, TROPN #### [address] Platelets (Bld) [#/Vol] 223 10*3/uL Normal 140-440 [facility] Comment on above: Performed By: #### H EMDF, BMP3, LFT3, LIPA4, TROPN #### [address] [address] [place] RBC (Bld) [#/Vol] 3.88 10*6/uL Normal 3.80-5.20 [facility] Comment on above: Performed By: #### H EMDF, BMP3, LFT3, LIPA4, TROPN #### [address] WBC (Bld) [#/Vol] 7.4 10*3/uL Normal 3.6-10.7 [facility] Comment on above: Performed By: #### H EMDF, BMP3, LFT3, LIPA4, TROPN #### [facility] [address] [place], [place] Hepatic Functionon 0 ALP [Catalytic activity/Vol] 94 U/L Normal 38-126 [facility] Comment on above: Performed By: #### H EMDF, BMP3, LFT3, LIPA4, TROPN #### [address] [address] [place] ALT [Catalytic activity/Vol] 76 U/L High 13-69 [facility] Comment on above: Performed By: #### H EMDF, BMP3, LFT3, LIPA4, TROPN #### [address] [address] [place] AST [Catalytic activity/Vol] 80 U/L High 15-46 [facility] Comment on above: Performed By: #### H EMDF, BMP3, LFT3, LIPA4, TROPN #### [address] [address] [place] Bilirubin [Mass/Vol] 0.6 mg/dL Normal 0.2-1.3 [facility] Comment on above: Performed By: #### H EMDF, BMP3, LFT3, LIPA4, TROPN #### [address] [address] [place] Protein [Mass/Vol] 7.0 g/dL Normal 6.3-8.2 [facility] Comment on above: Performed By: #### H EMDF, BMP3, LFT3, LIPA4, TROPN #### [address] [address] [place] Bilirubin.direct [Mass/Vol] 0.0 mg/dL Normal 0.0-0.3 [facility] Comment on above: Performed By: #### H EMDF, BMP3, LFT3, LIPA4, TROPN #### [place] [address] [address] [place] Albumin [Mass/Vol] 3.7 g/dL Normal 3.5-5.0 [facility] Comment on above: Performed By: #### H EMDF, BMP3, LFT3, LIPA4, TROPN #### [address] [id number] Hepatic Function PanelOrdere d By: Sharmila Lr on 02-15-2019 Albumin [Mass/Vol] 3.7 g/dL 3.5 - 5 g/dL [facility] Work Phone: ALP [Catalytic activity/Vol] 94 U/L 38 - 126 U/L [facility] Work Phone: ALT [Catalytic activity/Vol] 76 U/L High 13 - 69 U/L [facility] Work Phone: AST [Catalytic activity/Vol] 80 U/L High 15 - 46 U/L [facility] Work Phone: Bilirubin [Mass/Vol] 0.6 mg/dL 0.2 - 1 .3 mg/dL [facility] Work Phone: Bilirubin.indirect [Mass/Vol] 0.0 mg/dL 0 - 0.3 mg/dL [facility] Work Phone: Protein [Mass/Vol] 7.0 g/dL 6.3 - 8.2 g/dL [facility] Work Phone: No Panel InformationOrdered By: Mark Chen on 02-15-2019 Interpretation and review of laboratory results Abnormal [facility] Work Phone: Test Performed by [facility], [address] [place] [id number] [facility] Work Phone: RF [facility] Biliary and Pancreat ic [place] 02-15-2019 RF [facility] Biliary and Pancreatic Duct Patient Name: PREMA VILLALPANDO Fluoroscopy Exam Date/Time 02/15/2019 08:51:55 EST Exam RF ERCP Biliary and Pancreatic Duct Ordering Physician LISA RICH Accession Number [id number] CTP4 Codes 63850 () Reason For Exam cbd stones Report CLINICAL INFORMATION: Choledochal stones. FLUOROSCOPY USED: < 1 minute, 0 cine run(s), and 4 fluoro spot(s) captured. FINDINGS: An ERCP is performed. The common bile duct has been cannulated. Contrast is seen in a nondilated common bile duct. No definite choledochal stones are appreciated on the included images. The last image demonstrates placement of plastic biliary and pancreatic stents. IMPRESSION: 1. No significant biliary dilatation. 2. No definite choledochal stones are appreciated on the included images. 3. The last image demonstrates placement of plastic biliary and pancreatic stents. Fluoro time per Dr. Davis in endoscopy. Report Dictated on Final Dictated: 02/15/2019 8:39 am Dictating Physician: MD FONTENOT JEFFREY Signed Date and Time: 02/15/2019 8:42 am Signed by: MD FONTENOT JEFFREY Transcribed Date and Time: 02/15/2019 8:39 Normal [facility] Surgical Pathologyon [address] [facility] PATHOLOGY [facility] LABORATORY MEDICINE [address] [place] [address] FINAL SURGICAL PATHOLOGY REPORT NAME: PREMA VILLALPANDO : 1940 78 Y F BILLING NO.: [id number] LOCATION: [facility] 5125 [id number] PROCEDURE 02/15/2019 DATE: SURGEON: SAHIL ANDERSON M.D. RECEIVED 02/16/2019 DATE: ATTENDING: TJ MUNIZ MD REPORT DATE: 02/21/2019 COPIES TO: DIAGNOSIS: GALLBLADDER, CHOLECYSTECTOMY - CHRONIC CHOLECYSTITIS CHOLELITHIASIS SMT/0RW Signature> S DIMITRIS IRVING M.D. CLINICAL INFORMATION: Acute cholecystitis, cholelithiasis SPECIMEN: GALLBLADDER GROSS DESCRIPTION: Gallbladder Received in formalin is an intact gallbladder measuring 8 x 2.5 x 1.5 cm. The serosal surface is pink-choudhary to pink-conway and hyperemic. Upon opening the specimen, the lumen is completely filled with fragmented yellow-green to choudhary calculi which aggregate to 6 x 3 cm. The mucosal surface is pink-choudhary and light green bile-stained. The wall averages 0.4 cm in thickness and contains no nodules. Multiple calculi are identified impacted within the cystic duct. System Developer Associate Manager sections are submitted in a single cassette. (bits ss, 1) MAUREENK/TRELL Disclaimer: The following statement applies to all immunohistochemistry, in situ hybridization, molecular studies, and immunofluorescence testing. The use of one or more reagents in the above tests is regulated as an analyte specific reagent (ASR). These tests were developed and their performance characteristics determined by the clinical laboratories of [facility]. They have not been cleared by the US Food and Drug Administration (FDA). The FDA has determined that such clearance or approval is not necessary. All the above immunostains were performed on paraffin embedded tissue. Appropriate positive and negative controls (where applicable) were run in parallel with the patient's specimen; these controls showed expected staining pattern, with acceptable intensity of staining. Immunohistochemical assays have not been validated on decalcified tissues. Results should be interpreted with caution given the raised possibility of false negativity on decalcified specimens. Professional Performing Location: [address] [address]. DEPARTMENT OF PATHOLOGY AND LABORATORY MEDICINE [place], [place] [address] Normal [facility] TS GELon 02-15-2019 TS GEL ABO Group: O Rh, Gel: POS Antibody Screen Gel: NEG Normal [facility] Comment on above: Performed By: #### H EMDF, BMP3, LFT3, LIPA4, TROPN #### [facility] [address] [place], [place] TYPE AND SCREENOrdered By: Tyrone Chen on 02-15-2019 ABO Grouping O [facility] Work Phone: Rh Type Positive [facility] Work Phone: Comment on above: Test Performed by [facility], [address] [place] [id number] Test Performed by [facility], [address] [place] [id number] [place] [address] Work Phone: Potassiumon 02-14-2019 Potassium [Moles/Vol] 3.8 mmol/L Normal 3.5-5.1 [facility] Comment on above: Performed By: #### H EMDF, BMP3, LFT3, LIPA4, TROPN #### [facility] [address] [place] [address] PotassiumOrdered By: Luciano Muniz on 02-14-2019 Potassium [Moles/Vol] 3.8 mmol/L 3.5 - 5.1 mmol/L [facility] Work Phone: Test Performed by [facility], [address] [place] [address] [facility] Work Phone: Basic Metabolic Panelon Anion gap [Moles/Vol] 7 Normal [facility] Comment on above: Performed By: #### H EMDF, BMP3, LFT3, LIPA4, TROPN #### [facility] [employer] [facility] [address] [place], [place] Calcium [Mass/Vol] 9.0 mg/dL Normal 8.4-10.4 [facility] Comment on above: Performed By: #### H EMDF, BMP3, LFT3, LIPA4, TROPN #### [facility] [place] CO2 [Moles/Vol] 26 mmol/L Normal 22-30 [facility] Comment on above: Performed By: #### H EMDF, BMP3, LFT3, LIPA4, TROPN #### [facility] [address] [place] Glucose [Mass/Vol] 93 mg/dL Normal 70-100 [facility] Comment on above: Performed By: #### H EMDF, BMP3, LFT3, LIPA4, TROPN #### [place] [address] [address] [place] Urea nitrogen [Mass/Vol] 6 mg/dL Low 7-20 [facility] Comment on above: Performed By: #### H EMDF, BMP3, LFT3, LIPA4, TROPN #### [place] [address] [address] [place] Creatinine [Mass/Vol] 0.68 mg/dL Normal 0.52-1.25 [facility] Comment on above: Performed By: #### H EMDF, BMP3, LFT3, LIPA4, TROPN #### [place] [address] [address] [place] GFR/1.73 sq M predicted among blacks MDRD (S/P/Bld) [Vol rate/Area] mL/min/{1.73_m2} Normal >60 [facility] Comment on above: Performed By: #### H EMDF, BMP3, LFT3, LIPA4, TROPN #### [place] [address] [address] [place] GFR/1.73 sq M predicted among non-blacks MDRD (S/P/Bld) [Vol rate/Area] mL/min/{1.73_m2} Normal >60 [facility] Comment on above: Result Comment: Sour ce- MDRD equation with creatinine calibration to IDMS(NKDEP) eGFR not recommended for drug dose adjustment Performed By: #### H EMDF, BMP3, LFT3, LIPA4, TROPN #### [place] [address] [address] [place] Chloride [Moles/Vol] 108 mmol/L High 98-107 [facility] Comment on above: Performed By: #### H EMDF, BMP3, LFT3, LIPA4, TROPN #### [facility] [address] [place] Potassium [Moles/Vol] 3.4 mmol/L Low 3.5-5.1 [facility] Comment on above: Performed By: #### H EMDF, BMP3, LFT3, LIPA4, TROPN #### [facility] [address] [place] Sodium [Moles/Vol] 142 mmol/L Normal 135-145 [facility] Comment on above: Performed By: #### H EMDF, BMP3, LFT3, LIPA4, TROPN #### [address] [place] Basic Metabolic Panel w/ Ref tere to MGOrdered By: Gem Lowery on 02-13-2019 Anion gap [Moles/Vol] 7 mmol/L [facility] Work Phone: [phone] Calcium [Mass/Vol] 9.0 mg/dL 8.4 - 10. 4 mg/dL [facility] Work Phone: Chloride [Moles/Vol] 108 mmol/L High 98 - 10 7 mmol/L [facility] Work Phone: CO2 [Moles/Vol] 26 mmol/L 22 - 30 mmol/L [facility] Work Phone: Creatinine [Mass/Vol] 0.68 mg/dL 0.52 - 1.25 mg/dL [facility] Work Phone: EGFR IF NonAfrican Samoan >60.0 >60 mL/min [facility] Work Phone: Comment on above: Source- MDRD equatio n with creatinine calibration to IDMS(NKDEP) eGFR not recommended for drug dose adjustment GFR/1.73 sq M.predicted among blacks MDRD (S/P/Bld) [Vol rate/Area] mL/min/{1.73_m2} >60 mL/min [facility] Work Phone: Glucose [Mass/Vol] 93 mg/dL 70 - 100 mg/dL [facility] Work Phone: [phone]) 222 Potassium [Moles/Vol] 3.4 mmol/L Low 3.5 - 5.1 mmol/L [facility] Work Phone: [phone]) 222 Sodium [Moles/Vol] 142 mmol/L 135 - 145 mmol/L [facility] Work Phone: [phone]) 222 Urea nitrogen [Mass/Vol] 6 mg/dL Low 7 - 20 mg/dL [facility] Work Phone: [phone]) 222 CBC Auto DifferentialOrdered By: Gem Lowery on 02-13-2019 Absolute Baso # 0.1 10*3/uL 0 - 0.2 10*3/uL [facility] Work Phone: [phone]) 222 Absolute Neut # 3.9 10*3/uL 1.8 - 7 10*3/uL [facility] Work Phone: [phone]) 222 Basophils/100 WBC (Bld) 1.1 % 0 - 2 % [facility] Work Phone: 222 Eosinophils (Bld) [#/Vol] 0.2 10*3/uL 0 - 0.5 10*3/uL [facility] Work Phone: [phone]) 222 Eosinophils/100 WBC (Bld) 3.4 % 1 - 6 % [facility] Work Phone: [phone]) 222 Erythrocyte distribution width (RBC) [Ratio] 12.3 % 11.5 - 14.5 % [facility] Work Phone: ) 222 Granulocytes/100 WBC (Bld) 68.3 % 40 - 80 % [facility] Work Phone: ) 222 Hematocrit (Bld) [Volume fraction] 32.8 % Low 35 - 47 % [facility] Work Phone: ) 222 Hemoglobin (Bld) [Mass/Vol] 11.6 g/dL Low 11.7 - 16 g/dL [facility] Work Phone: [phone]) 222 Interpretation and review of laboratory results Abnormal [facility] Work Phone: ) 222 Lymphocytes (Bld) [#/Vol] 1.1 10*3/uL 1 - 4.3 10*3/uL [facility] Work Phone: [phone] Lymphocytes/100 WBC (Bld) 18.6 % Low 20 - 40 % [facility] Work Phone: [phone] MCH (RBC) [Entitic mass] 33.3 pg 26 - 34 pg [facility] Work Phone: [phone] MCHC 35.2 % 32 - 36 % [facility] Work Phone: [phone] MCV (RBC) [Entitic vol] 94.4 fL 79 - 98 fL [facility] Work Phone: [phone] Monocytes (Bld) [#/Vol] 0.5 10*3/uL 0 - 0.8 10*3/uL [facility] Work Phone: [phone] Monocytes/100 WBC (Bld) 8.6 % 2 - 10 % [facility] Work Phone: [phone] Platelet mean volume (Bld) [Entitic vol] 10.1 fL 7.4 - 10.4 fL [facility] Work Phone: [phone] Platelets (Bld) [#/Vol] 196 10*3/uL 140 - 440 10*3/uL [facility] Work Phone: [phone] RBC (Bld) [#/Vol] 3.48 10*6/uL Low 3.8 - 5.2 10*6/uL [facility] Work Phone: [phone] WBC (Bld) [#/Vol] 5.7 10*3/uL 3.6 - 10.7 10*3/uL [facility] Work Phone: [phone] Test Performed by [facility] [employer] [facility], [address] [place] [address] [facility] Work Phone: [phone] Hemogram w/ Autodiffon 02-13 Abs Baso Cnt 0.1 10*3/uL Normal 0.0-0.2 [facility] Comment on above: Performed By: #### H EMDF, BMP3, LFT3, LIPA4, TROPN #### [facility] [employer] [address] [place] [phone] Abs Neutrophile Cnt 3.9 10*3/uL Normal 1.8-7.0 [facility] [employer] [facility] Comment on above: Performed By: #### H EMDF, BMP3, LFT3, LIPA4, TROPN #### [place] [address] [place], [place] Basophils/100 WBC (Bld) 1.1 % Normal 0.0-2.0 [facility] Comment on above: Performed By: #### H EMDF, BMP3, LFT3, LIPA4, TROPN #### [address] Eosinophils (Bld) [#/Vol] 0.2 10*3/uL Normal 0.0-0.5 [facility] Comment on above: Performed By: #### H EMDF, BMP3, LFT3, LIPA4, TROPN #### [address] Eosinophils/100 WBC (Bld) 3.4 % Normal 1.0-6.0 [facility] Comment on above: Performed By: #### H EMDF, BMP3, LFT3, LIPA4, TROPN #### [address] Erythrocyte distribution width (RBC) [Ratio] 12.3 % Normal 11.5-14.5 [facility] Comment on above: Performed By: #### H EMDF, BMP3, LFT3, LIPA4, TROPN #### [address] Granulocytes/100 WBC (Bld) 68.3 % Normal 40.0-80.0 [facility] Comment on above: Performed By: #### H EMDF, BMP3, LFT3, LIPA4, TROPN #### [address] Hematocrit (Bld) [Volume fraction] 32.8 % Low 35.0-47.0 [facility] Comment on above: Performed By: #### H EMDF, BMP3, LFT3, LIPA4, TROPN #### [place] [address] [place], [place] Hemoglobin (Bld) [Mass/Vol] 11.6 g/dL Low 11.7-16.0 [facility] Comment on above: Performed By: #### H EMDF, BMP3, LFT3, LIPA4, TROPN #### [address] [place] [address] [place], [place] Lymphocytes (Bld) [#/Vol] 1.1 10*3/uL Normal 1.0-4.3 [facility] Comment on above: Performed By: #### H EMDF, BMP3, LFT3, LIPA4, TROPN #### [address] Lymphocytes/100 WBC (Bld) 18.6 % Low 20.0-40.0 [facility] Comment on above: Performed By: #### H EMDF, BMP3, LFT3, LIPA4, TROPN #### [address] MCH (RBC) [Entitic mass] 33.3 pg Normal 26.0-34.0 [facility] Comment on above: Performed By: #### H EMDF, BMP3, LFT3, LIPA4, TROPN #### [address] MCHC (RBC) [Mass/Vol] 35.2 % Normal 32.0-36.0 [facility] Comment on above: Performed By: #### H EMDF, BMP3, LFT3, LIPA4, TROPN #### [address] MCV (RBC) [Entitic vol] 94.4 fL Normal 79.0-98.0 [facility] Comment on above: Performed By: #### H EMDF, BMP3, LFT3, LIPA4, TROPN #### [address] Monocytes (Bld) [#/Vol] 0.5 10*3/uL Normal 0.0-0.8 [facility] Comment on above: Performed By: #### H EMDF, BMP3, LFT3, LIPA4, TROPN #### [address] Monocytes/100 WBC (Bld) 8.6 % Normal 2.0-10.0 [facility] Comment on above: Performed By: #### H EMDF, BMP3, LFT3, LIPA4, TROPN #### [place] [address] [address] [place] Platelet mean volume (Bld) [Entitic vol] 10.1 fL Normal 7.4-10.4 [facility] Comment on above: Performed By: #### H EMDF, BMP3, LFT3, LIPA4, TROPN #### [place] [address] [address] [place] Platelets (Bld) [#/Vol] 196 10*3/uL Normal 140-440 [facility] Comment on above: Performed By: #### H EMDF, BMP3, LFT3, LIPA4, TROPN #### [place] [address] [address] [place] RBC (Bld) [#/Vol] 3.48 10*6/uL Low 3.80-5.20 [facility] Comment on above: Performed By: #### H EMDF, BMP3, LFT3, LIPA4, TROPN #### [place] [address] [address] [place] WBC (Bld) [#/Vol] 5.7 10*3/uL Normal 3.6-10.7 [facility] Comment on above: Performed By: #### H EMDF, BMP3, LFT3, LIPA4, TROPN #### [place] [address] [address] [address] [place] Hepatic Functionon 0 ALP [Catalytic activity/Vol] 77 U/L Normal 38-126 [facility] Comment on above: Performed By: #### H EMDF, BMP3, LFT3, LIPA4, TROPN #### [place] [address] [address] [place] ALT [Catalytic activity/Vol] 66 U/L Normal 13-69 [facility] Comment on above: Performed By: #### H EMDF, BMP3, LFT3, LIPA4, TROPN #### [place] [address] [place] AST [Catalytic activity/Vol] 62 U/L High 15-46 [facility] Comment on above: Performed By: #### H EMDF, BMP3, LFT3, LIPA4, TROPN #### [facility] [address] [place] Bilirubin [Mass/Vol] 0.7 mg/dL Normal 0.2-1.3 [facility] Comment on above: Performed By: #### H EMDF, BMP3, LFT3, LIPA4, TROPN #### [place] [address] [address] [place] Protein [Mass/Vol] 5.8 g/dL Low 6.3-8.2 [facility] Comment on above: Performed By: #### H EMDF, BMP3, LFT3, LIPA4, TROPN #### [place] [address] [address] [place] Bilirubin.direct [Mass/Vol] 0.0 mg/dL Normal 0.0-0.3 [facility] Comment on above: Performed By: #### H EMDF, BMP3, LFT3, LIPA4, TROPN #### [place] [address] [address] [place] Albumin [Mass/Vol] 3.0 g/dL Low 3.5-5.0 [facility] Comment on above: Performed By: #### H EMDF, BMP3, LFT3, LIPA4, TROPN #### [place] [address] [address] [place] Hepatic Function PanelOrdere d By: Gem Lowery on 02-13-2019 Albumin [Mass/Vol] 3.0 g/dL Low 3.5 - 5 g/dL [facility] Work Phone: ALP [Catalytic activity/Vol] 77 U/L 38 - 126 U/L [facility] Work Phone: ALT [Catalytic activity/Vol] 66 U/L 13 - 69 U/L [facility] Work Phone: AST [Catalytic activity/Vol] 62 U/L High 15 - 46 U/L [facility] Work Phone: [phone] Bilirubin [Mass/Vol] 0.7 mg/dL 0.2 - 1 .3 mg/dL [facility] Work Phone: 1 Bilirubin.indirect [Mass/Vol] 0.0 mg/dL 0 - 0.3 mg/dL [facility] Work Phone: [phone] Protein [Mass/Vol] 5.8 g/dL Low 6.3 - 8.2 g/dL [facility] Work Phone: [phone] Magnesiumon 02-13-2019 Magnesium [Mass/Vol] 1.7 mg/dL Normal 1.6-2.3 [facility] [employer] System Comment on above: Performed By: #### H EMDF, BMP3, LFT3, LIPA4, TROPN #### [facility] [employer] System [address] [place] [phone] MagnesiumOrdered By: Maria C Lowery on 02-13-2019 Magnesium [Mass/Vol] 1.7 mg/dL 1.6 - 2 .3 mg/dL [facility] Work Phone: [phone] Test Performed by [facility], [address] [place] [address] [facility] Work Phone: [phone] No Panel InformationOrdered By: Gem Lowery on 02-13-2019 Interpretation and review of laboratory results Abnormal [facility] Work Phone: [phone] Test Performed by [facility], [address] [place] [address] [facility] Work Phone: [phone] Add On Lab TestOrdered By: Juana Lowery on 02-12-2019 Add On Accepted [facility] Work Phone: [phone] Comment on above: Specimen available & acceptable for analysis. Test Performed by [facility], [address] [place] [address] [facility] Work Phone: Add on test from HISon 02-12 Add on test from HIS Accepted Normal [facility] Comment on above: Result Comment: Spec imen available & acceptable for analysis. Performed By: #### H EMDF, BMP3, LFT3, LIPA4, TROPN #### [facility] [address] [place] [address] Bilirubin, DirectOrdered By: Sonny Peres on 02-12-2019 Bilirubin.indirect [Mass/Vol] 0.0 mg/dL 0 - 0.3 mg/dL [facility] Work Phone: [phone] Bilirubin,Directon 0 Bilirubin.direct [Mass/Vol] 0.0 mg/dL Normal 0.0-0.3 [facility] Comment on above: Performed By: #### H EMDF, BMP3, LFT3, LIPA4, TROPN #### [facility] [address] [place] [address] CBC auto differentialOrdered By: Sonny Peres on 02-12-2019 Absolute Baso # 0.1 10*3/uL 0 - 0.2 10*3/uL [facility] Work Phone: [phone] 222 Absolute Neut # 4.0 10*3/uL 1.8 - 7 10*3/uL [facility] Work Phone: [phone]) 222 Basophils/100 WBC (Bld) 0.9 % 0 - 2 % [facility] Work Phone: [phone] Eosinophils (Bld) [#/Vol] 0.2 10*3/uL 0 - 0.5 10*3/uL [facility] Work Phone: [phone]) 222 Eosinophils/100 WBC (Bld) 3.4 % 1 - 6 % [facility] Work Phone: 1) 222 Erythrocyte distribution width (RBC) [Ratio] 12.4 % 11.5 - 14.5 % [facility] Work Phone: [phone] Granulocytes/100 WBC (Bld) 71.5 % 40 - 80 % [facility] Work Phone: [phone]) 222 Hematocrit (Bld) [Volume fraction] 32.5 % Low 35 - 47 % [employer] [facility] Work Phone: 222 Hemoglobin (Bld) [Mass/Vol] 11.1 g/dL Low 11.7 - 16 g/dL [facility] Work Phone: [phone]) 222 Interpretation and review of laboratory results Abnormal [facility] Work Phone: Lymphocytes (Bld) [#/Vol] 1.0 10*3/uL 1 - 4.3 10*3/uL [facility] Work Phone: [phone] Lymphocytes/100 WBC (Bld) 17.7 % Low 20 - 40 % [facility] Work Phone: [phone] MCH (RBC) [Entitic mass] 33.0 pg 26 - 34 pg [facility] Work Phone: [phone] MCHC 34.2 % 32 - 36 % [facility] Work Phone: [phone] MCV (RBC) [Entitic vol] 96.5 fL 79 - 98 fL [facility] Work Phone: [phone] Monocytes (Bld) [#/Vol] 0.4 10*3/uL 0 - 0.8 10*3/uL [facility] Work Phone: [phone] Monocytes/100 WBC (Bld) 6.5 % 2 - 10 % [facility] Work Phone: [phone] Platelet mean volume (Bld) [Entitic vol] 10.3 fL 7.4 - 10.4 fL [facility] Work Phone: [phone] Platelets (Bld) [#/Vol] 163 10*3/uL 140 - 440 10*3/uL [facility] Work Phone: [phone] RBC (Bld) [#/Vol] 3.37 10*6/uL Low 3.8 - 5.2 10*6/uL [facility] Work Phone: [phone] WBC (Bld) [#/Vol] 5.5 10*3/uL 3.6 - 10.7 10*3/uL [facility] Work Phone: [phone] Test Performed by [facility] [employer] [facility], [address] [place] [address] [facility] Work Phone: [phone] Comp Panel with Mg Reflexon 02-12-2019 ALP [Catalytic activity/Vol] 86 U/L Normal 38-126 [facility] Comment on above: Performed By: #### H EMDF, BMP3, LFT3, LIPA4, TROPN #### [facility] [address] [place] [address] ALT [Catalytic activity/Vol] 81 U/L High 13-69 [facility] Comment on above: Performed By: #### H EMDF, BMP3, LFT3, LIPA4, TROPN #### [place] [address] [address] [place] Anion gap [Moles/Vol] 4 Normal [facility] Comment on above: Performed By: #### H EMDF, BMP3, LFT3, LIPA4, TROPN #### [place] [address] [address] [place] AST [Catalytic activity/Vol] 87 U/L High 15-46 [facility] Comment on above: Performed By: #### H EMDF, BMP3, LFT3, LIPA4, TROPN #### [place] [address] [address] [place] Bilirubin [Mass/Vol] 0.6 mg/dL Normal 0.2-1.3 [facility] Comment on above: Performed By: #### H EMDF, BMP3, LFT3, LIPA4, TROPN #### [place] [address] [address] [place] Calcium [Mass/Vol] 8.8 mg/dL Normal 8.4-10.4 [facility] Comment on above: Performed By: #### H EMDF, BMP3, LFT3, LIPA4, TROPN #### [place] [address] [address] [place] CO2 [Moles/Vol] 27 mmol/L Normal 22-30 [facility] Comment on above: Performed By: #### H EMDF, BMP3, LFT3, LIPA4, TROPN #### [place] [address] [address] [place] Glucose [Mass/Vol] 84 mg/dL Normal 70-100 [facility] Comment on above: Performed By: #### H EMDF, BMP3, LFT3, LIPA4, TROPN #### [place] [address] [address] [place] Protein [Mass/Vol] 5.5 g/dL Low 6.3-8.2 [facility] Comment on above: Performed By: #### H EMDF, BMP3, LFT3, LIPA4, TROPN #### [address] [place] [address] [place] Urea nitrogen [Mass/Vol] 11 mg/dL Normal 7-20 [facility] Comment on above: Performed By: #### H EMDF, BMP3, LFT3, LIPA4, TROPN #### [address] [place] [address] [place] Creatinine [Mass/Vol] 0.78 mg/dL Normal 0.52-1.25 [facility] Comment on above: Performed By: #### H EMDF, BMP3, LFT3, LIPA4, TROPN #### [address] GFR/1.73 sq M predicted among blacks MDRD (S/P/Bld) [Vol rate/Area] mL/min/{1.73_m2} Normal >60 [facility] Comment on above: Performed By: #### H EMDF, BMP3, LFT3, LIPA4, TROPN #### [address] [address] [place], [place] GFR/1.73 sq M predicted among non-blacks MDRD (S/P/Bld) [Vol rate/Area] mL/min/{1.73_m2} Normal >60 [facility] Comment on above: Result Comment: Sour ce- MDRD equation with creatinine calibration to IDMS(NKDEP) eGFR not recommended for drug dose adjustment Performed By: #### H EMDF, BMP3, LFT3, LIPA4, TROPN #### [address] Albumin [Mass/Vol] 2.9 g/dL Low 3.5-5.0 [facility] Comment on above: Performed By: #### H EMDF, BMP3, LFT3, LIPA4, TROPN #### [address] Chloride [Moles/Vol] 110 mmol/L High 98-107 [facility] Comment on above: Performed By: #### H EMDF, BMP3, LFT3, LIPA4, TROPN #### [facility] [address] [place], [place] Potassium [Moles/Vol] 3.6 mmol/L Normal 3.5-5.1 [facility] Comment on above: Performed By: #### H EMDF, BMP3, LFT3, LIPA4, TROPN #### [facility] [address] [place], [place] Sodium [Moles/Vol] 142 mmol/L Normal 135-145 [facility] Comment on above: Performed By: #### H EMDF, BMP3, LFT3, LIPA4, TROPN #### [facility] [address] [place], [place] Comprehensive Metabolic Pane l w/ Reflex to MGOrdered By: Sonny Peres on 02-12-2019 Albumin [Mass/Vol] 2.9 g/dL Low 3.5 - 5 g/dL [facility] Work Phone: [phone] ALP [Catalytic activity/Vol] 86 U/L 38 - 126 U/L [facility] Work Phone: 222 ALT [Catalytic activity/Vol] 81 U/L High 13 - 69 U/L [facility] Work Phone: [phone] Anion gap [Moles/Vol] 4 mmol/L [facility] Work Phone: [phone] AST [Catalytic activity/Vol] 87 U/L High 15 - 46 U/L [facility] Work Phone: [phone] Bilirubin [Mass/Vol] 0.6 mg/dL 0.2 - 1 .3 mg/dL [facility] Work Phone: [phone] Calcium [Mass/Vol] 8.8 mg/dL 8.4 - 10. 4 mg/dL [facility] Work Phone: [phone] Chloride [Moles/Vol] 110 mmol/L High 98 - 10 7 mmol/L [facility] Work Phone: ) [phone] CO2 [Moles/Vol] 27 mmol/L 22 - 30 mmol/L [facility] Work Phone: [phone] Creatinine [Mass/Vol] 0.78 mg/dL 0.52 - 1.25 mg/dL [facility] Work Phone: EGFR IF NonAfrican Samoan >60.0 >60 mL/min [facility] Work Phone: Comment on above: Source- MDRD equatio n with creatinine calibration to IDMS(NKDEP) eGFR not recommended for drug dose adjustment GFR/1.73 sq M.predicted among blacks MDRD (S/P/Bld) [Vol rate/Area] mL/min/{1.73_m2} >60 mL/min [facility] Work Phone: Glucose [Mass/Vol] 84 mg/dL 70 - 100 mg/dL [facility] Work Phone: Interpretation and review of laboratory results Abnormal [facility] Work Phone: Potassium [Moles/Vol] 3.6 mmol/L 3.5 - 5.1 mmol/L [facility] Work Phone: Protein [Mass/Vol] 5.5 g/dL Low 6.3 - 8.2 g/dL [facility] Work Phone: Sodium [Moles/Vol] 142 mmol/L 135 - 145 mmol/L [facility] Work Phone: Urea nitrogen [Mass/Vol] 11 mg/dL 7 - 20 mg/dL [facility] Work Phone: Test Performed by [facility], [address] [place] [address] [facility] Work Phone: Hemogram w/ Autodiffon 02-12 Abs Baso Cnt 0.1 10*3/uL Normal 0.0-0.2 [facility] Comment on above: Performed By: #### H EMDF, BMP3, LFT3, LIPA4, TROPN #### [facility] [address] [address] Abs Neutrophile Cnt 4.0 10*3/uL Normal 1.8-7.0 [facility] Comment on above: Performed By: #### H EMDF, BMP3, LFT3, LIPA4, TROPN #### [facility]) [address] Basophils/100 WBC (Bld) 0.9 % Normal 0.0-2.0 [facility] Comment on above: Performed By: #### H EMDF, BMP3, LFT3, LIPA4, TROPN #### [address] Eosinophils (Bld) [#/Vol] 0.2 10*3/uL Normal 0.0-0.5 [facility] Comment on above: Performed By: #### H EMDF, BMP3, LFT3, LIPA4, TROPN #### [address] Eosinophils/100 WBC (Bld) 3.4 % Normal 1.0-6.0 [facility] Comment on above: Performed By: #### H EMDF, BMP3, LFT3, LIPA4, TROPN #### [address] Erythrocyte distribution width (RBC) [Ratio] 12.4 % Normal 11.5-14.5 [facility] Comment on above: Performed By: #### H EMDF, BMP3, LFT3, LIPA4, TROPN #### [address] Granulocytes/100 WBC (Bld) 71.5 % Normal 40.0-80.0 [facility] Comment on above: Performed By: #### H EMDF, BMP3, LFT3, LIPA4, TROPN #### [address] Hematocrit (Bld) [Volume fraction] 32.5 % Low 35.0-47.0 [facility] Comment on above: Performed By: #### H EMDF, BMP3, LFT3, LIPA4, TROPN #### [address] Hemoglobin (Bld) [Mass/Vol] 11.1 g/dL Low 11.7-16.0 [facility] Comment on above: Performed By: #### H EMDF, BMP3, LFT3, LIPA4, TROPN #### [place] [address] [address] [place], [place] Lymphocytes (Bld) [#/Vol] 1.0 10*3/uL Normal 1.0-4.3 [facility] Comment on above: Performed By: #### H EMDF, BMP3, LFT3, LIPA4, TROPN #### [address] [address] [place], [place] Lymphocytes/100 WBC (Bld) 17.7 % Low 20.0-40.0 [facility] Comment on above: Performed By: #### H EMDF, BMP3, LFT3, LIPA4, TROPN #### [address] MCH (RBC) [Entitic mass] 33.0 pg Normal 26.0-34.0 [facility] Comment on above: Performed By: #### H EMDF, BMP3, LFT3, LIPA4, TROPN #### [address] MCHC (RBC) [Mass/Vol] 34.2 % Normal 32.0-36.0 [facility] Comment on above: Performed By: #### H EMDF, BMP3, LFT3, LIPA4, TROPN #### [address] MCV (RBC) [Entitic vol] 96.5 fL Normal 79.0-98.0 [facility] Comment on above: Performed By: #### H EMDF, BMP3, LFT3, LIPA4, TROPN #### [address] [place] Monocytes (Bld) [#/Vol] 0.4 10*3/uL Normal 0.0-0.8 [facility] Comment on above: Performed By: #### H EMDF, BMP3, LFT3, LIPA4, TROPN #### [address] Monocytes/100 WBC (Bld) 6.5 % Normal 2.0-10.0 [facility] Comment on above: Performed By: #### H EMDF, BMP3, LFT3, LIPA4, TROPN #### [place] [address] [address] [place] Platelet mean volume (Bld) [Entitic vol] 10.3 fL Normal 7.4-10.4 [facility] Comment on above: Performed By: #### H EMDF, BMP3, LFT3, LIPA4, TROPN #### [place] [address] [address] [place] Platelets (Bld) [#/Vol] 163 10*3/uL Normal 140-440 [facility] Comment on above: Performed By: #### H EMDF, BMP3, LFT3, LIPA4, TROPN #### [place] [address] [address] [place] RBC (Bld) [#/Vol] 3.37 10*6/uL Low 3.80-5.20 [facility] Comment on above: Performed By: #### H EMDF, BMP3, LFT3, LIPA4, TROPN #### [place] [address] [address] [place] WBC (Bld) [#/Vol] 5.5 10*3/uL Normal 3.6-10.7 [facility] Comment on above: Performed By: #### H EMDF, BMP3, LFT3, LIPA4, TROPN #### [address] Lipaseon 02-12-2019 Lipase [Catalytic activity/Vol] 173 U/L Normal 23-300 [facility] Comment on above: Performed By: #### H EMDF, BMP3, LFT3, LIPA4, TROPN #### [address] [address] [place], [place] LipaseOrdered By: Sonny montenegro on 02-12-2019 Lipase [Catalytic activity/Vol] 173 U/L 23 - 300 U/L [facility] Work Phone: No Panel InformationOrdered By: Sonny Peres on 02-12-2019 Test Performed by [facility], [facility] [place], [place] [id number] [place] [address] Work Phone: Prothrombin Timeon 0 INR Coag (PPP) [Relative time] 1.1 Normal 0.9-1.1 [facility] [employer] Comment on above: Result Comment: Kervin mmended Anticoagulant Therapy: SEE BELOW ----- INR of 2.0 - 3.0 : - Prophylaxis of Venous Thrombosis (high-risk surgery) - Treatment of Venous Thrombosis - Treatment of Pulmonary Embolism (Includes tissue heart valves, Acute Myocardial Infarction to prevent systemic embolism, Valvular Heart Disease, and Atrial Fibrillation) ----- INR of 2.5 - 3.5 : - Mechanical Prosthetic Valves (high risk) - If oral anticoagulant therapy is used to prevent Myocardial Infarction Performed By: #### H EMDF, BMP3, LFT3, LIPA4, TROPN #### [address] [address] PT Coag (PPP) [Time] 11.1 s Normal 9.0-12.0 [facility] Comment on above: Result Comment: . Performed By: #### H EMDF, BMP3, LFT3, LIPA4, TROPN #### [facility] [employer] [address] [address] Protime-INROrdered By: Nanette Peres on 02-12-2019 INR Coag (PPP) [Relative time] 1.1 {INR} [facility] Work Phone: Comment on above: Recommended Anticoag ulant Therapy: SEE BELOW ----- INR of 2.0 - 3.0 : - Prophylaxis of Venous Thrombosis (high-risk surgery) - Treatment of Venous Thrombosis - Treatment of Pulmonary Embolism (Includes tissue heart valves, Acute Myocardial Infarction to prevent systemic embolism, Valvular Heart Disease, and Atrial Fibrillation) ----- INR of 2.5 - 3.5 : - Mechanical Prosthetic Valves (high risk) - If oral anticoagulant therapy is used to prevent Myocardial Infarction PT Coag (PPP) [Time] 11.1 s 9 - 12 s [facility] Work Phone: Comment on above: . Test Performed by [facility] [employer] [facility], [address] [place] [address] [facility] Work Phone: Add On Lab TestOrdered By: Juana Lowery on 02-11-2019 Add On Rejected [facility] Work Phone: Comment on above: No specimen availabl e for addon. Test Performed by [facility], [address] [place] [address] [facility] Work Phone: Add On Lab TestOrdered By: Dasha Montague on 02-11-2019 Add On Accepted [facility] Work Phone: Comment on above: Specimen available & acceptable for analysis. Test Performed by [facility], [address] [place] [address] [facility] Work Phone: Add on test from HISon 02-11 Add on test from HIS Accepted Normal [facility] Comment on above: Result Comment: Spec imen available & acceptable for analysis. Performed By: #### A DDON #### [place] [address] [address] [place], [place] Add on test from HIS Rejected Normal [facility] Comment on above: Result Comment: No s pecimen available for addon. Performed By: #### A DDON #### [address] Basic Metabolic Panelon Anion gap [Moles/Vol] 5 Normal [facility] Comment on above: Performed By: #### H EMDF, BMP3, LFT3, LIPA4, TROPN #### [place] [address] [place], [place] Calcium [Mass/Vol] 8.9 mg/dL Normal 8.4-10.4 [facility] Comment on above: Performed By: #### H EMDF, BMP3, LFT3, LIPA4, TROPN #### [place] [address] [place], [place] CO2 [Moles/Vol] 27 mmol/L Normal 22-30 [facility] Comment on above: Performed By: #### H EMDF, BMP3, LFT3, LIPA4, TROPN #### [place] [address] [address] [place] Creatinine [Mass/Vol] 0.72 mg/dL Normal 0.52-1.25 [facility] Comment on above: Performed By: #### H EMDF, BMP3, LFT3, LIPA4, TROPN #### [facility] [address] [place] GFR/1.73 sq M predicted among blacks MDRD (S/P/Bld) [Vol rate/Area] mL/min/{1.73_m2} Normal >60 [facility] Comment on above: Performed By: #### H EMDF, BMP3, LFT3, LIPA4, TROPN #### [facility] [address] [place] GFR/1.73 sq M predicted among non-blacks MDRD (S/P/Bld) [Vol rate/Area] mL/min/{1.73_m2} Normal >60 [facility] Comment on above: Result Comment: Sour ce- MDRD equation with creatinine calibration to IDMS(NKDEP) eGFR not recommended for drug dose adjustment Performed By: #### H EMDF, BMP3, LFT3, LIPA4, TROPN #### [facility] [address] [place] Glucose [Mass/Vol] 120 mg/dL High 70-100 [facility] Comment on above: Performed By: #### H EMDF, BMP3, LFT3, LIPA4, TROPN #### [facility] [address] [place] Urea nitrogen [Mass/Vol] 15 mg/dL Normal 7-20 [facility] Comment on above: Performed By: #### H EMDF, BMP3, LFT3, LIPA4, TROPN #### [facility] [address] [place] Potassium [Moles/Vol] 3.7 mmol/L Normal 3.5-5.1 [facility] Comment on above: Performed By: #### H EMDF, BMP3, LFT3, LIPA4, TROPN #### [place] [address] [address] [place] Sodium [Moles/Vol] 142 mmol/L Normal 135-145 [facility] Comment on above: Performed By: #### H EMDF, BMP3, LFT3, LIPA4, TROPN #### [facility] [address] [place] [address] Chloride [Moles/Vol] 111 mmol/L High 98-107 [facility] Comment on above: Performed By: #### H EMDF, BMP3, LFT3, LIPA4, TROPN #### [facility] [address] [place] [address] Basic Metabolic PanelOrdered By: Sahil Ribeiro on 02-11-2019 Anion gap [Moles/Vol] 5 mmol/L [facility] Work Phone: Calcium [Mass/Vol] 8.9 mg/dL 8.4 - 10. 4 mg/dL [facility] Work Phone: [phone] Chloride [Moles/Vol] 111 mmol/L High 98 - 10 7 mmol/L [facility] Work Phone: [phone] CO2 [Moles/Vol] 27 mmol/L 22 - 30 mmol/L [facility] Work Phone: [phone] Creatinine [Mass/Vol] 0.72 mg/dL 0.52 - 1.25 mg/dL [facility] Work Phone: [phone] EGFR IF NonAfrican Samoan >60.0 >60 mL/min [facility] Work Phone: [phone] Comment on above: Source- MDRD equatio n with creatinine calibration to IDMS(NKDEP) eGFR not recommended for drug dose adjustment GFR/1.73 sq M.predicted among blacks MDRD (S/P/Bld) [Vol rate/Area] mL/min/{1.73_m2} >60 mL/min [facility] Work Phone: Glucose [Mass/Vol] 120 mg/dL High 70 - 100 mg/dL [facility] Work Phone: [phone] Potassium [Moles/Vol] 3.7 mmol/L 3.5 - 5.1 mmol/L [facility] Work Phone: Sodium [Moles/Vol] 142 mmol/L 135 - 145 mmol/L [facility] Work Phone: [phone] Urea nitrogen [Mass/Vol] 15 mg/dL 7 - 20 mg/dL [facility] Work Phone: 222 CBC Auto DifferentialOrdered By: Sahil Ribeiro on 02-11-2019 Absolute Baso # 0.0 10*3/uL 0 - 0.2 10*3/uL [facility] Work Phone: [phone] Absolute Neut # 7.8 10*3/uL High 1.8 - 7 10*3/uL [facility] Work Phone: 222 Basophils/100 WBC (Bld) 0.3 % 0 - 2 % [facility] Work Phone: 222 Eosinophils (Bld) [#/Vol] 0.0 10*3/uL 0 - 0.5 10*3/uL [facility] Work Phone: [phone] Eosinophils/100 WBC (Bld) 0.4 % Low 1 - 6 % [facility] Work Phone: Erythrocyte distribution width (RBC) [Ratio] 12.4 % 11.5 - 14.5 % [facility] Work Phone: 222 Granulocytes/100 WBC (Bld) 78.7 % 40 - 80 % [facility] Work Phone: 222 Hematocrit (Bld) [Volume fraction] 34.8 % Low 35 - 47 % [facility] Work Phone: 222 Hemoglobin (Bld) [Mass/Vol] 11.8 g/dL 11.7 - 16 g/dL [facility] Work Phone: ) [phone] Interpretation and review of laboratory results Abnormal [facility] Work Phone: ) 222 Lymphocytes (Bld) [#/Vol] 1.4 10*3/uL 1 - 4.3 10*3/uL [facility] Work Phone: 222 Lymphocytes/100 WBC (Bld) 14.5 % Low 20 - 40 % [facility] Work Phone: 222 MCH (RBC) [Entitic mass] 32.7 pg 26 - 34 pg [facility] Work Phone: [phone] MCHC 33.9 % 32 - 36 % [facility] Work Phone: MCV (RBC) [Entitic vol] 96.7 fL 79 - 98 fL [facility] Work Phone: Monocytes (Bld) [#/Vol] 0.6 10*3/uL 0 - 0.8 10*3/uL [facility] Work Phone: Monocytes/100 WBC (Bld) 6.1 % 2 - 10 % [facility] Work Phone: Platelet mean volume (Bld) [Entitic vol] 10.0 fL 7.4 - 10.4 fL [facility] Work Phone: [phone] Platelets (Bld) [#/Vol] 193 10*3/uL 140 - 440 10*3/uL [facility] Work Phone: RBC (Bld) [#/Vol] 3.60 10*6/uL Low 3.8 - 5.2 10*6/uL [facility] Work Phone: WBC (Bld) [#/Vol] 9.9 10*3/uL 3.6 - 10.7 10*3/uL [facility] Work Phone: Test Performed by [facility] [employer] [facility], [address] [place] [address] [employer] Work Phone: EKG 12 Lead - Chest PainOrde red By: Sahil Ribeiro on 02-11-2019 [facility] Test Date: 2019-02-11 Pat Name: Prema Villalpando Department: [facility] Room: [facility] Gender: F 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 Hand: HAKEEM : 1940 Requested By: SAHIL RIBEIRO Order Number: [id number] Reading MD: Zack Lopez Measurements Intervals [place] Rate: 69 P: UT: QRS: -12 QRSD: 85 T: -16 QT: 413 QTc: 443 Interpretive Statements Atrial fibrillation Low voltage, extremity and precordial leads Electronically Signed On 02-11-2019 22:54:26 EST by Zack Lopez [employer] [facility] Work Phone: [employer] Incoming Cardiology Results From [employer] - 02/11/2019 10:55 PM EST [facility] Test Date: 2019-02-11 Pat Name: Prema Villalpando Department: [facility] Room: [facility] Gender: F 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 Hand: HAKEEM : 1940 Requested By: SAHIL RIBEIRO Order Number: [id number] Reading MD: Zack Lopez Measurements Intervals [place] Rate: 69 P: UT: QRS: -12 QRSD: 85 T: -16 QT: 413 QTc: 443 Interpretive Statements Atrial fibrillation Low voltage, extremity and precordial leads Electronically Signed On 02-11-2019 22:54:26 EST by Zack Lopez [facility] Work Phone: HEPATIC FUNCTION PANELOrdere d By: Sahil Ribeiro on 02-11-2019 Albumin [Mass/Vol] 3.3 g/dL Low 3.5 - 5 g/dL [facility] Work Phone: ALP [Catalytic activity/Vol] 83 U/L 38 - 126 U/L [facility] Work Phone: ALT [Catalytic activity/Vol] 64 U/L 13 - 69 U/L [facility] Work Phone: AST [Catalytic activity/Vol] 76 U/L High 15 - 46 U/L [facility] Work Phone: Bilirubin [Mass/Vol] 0.5 mg/dL 0.2 - 1 .3 mg/dL [facility] Work Phone: Bilirubin.indirect [Mass/Vol] 0.0 mg/dL 0 - 0.3 mg/dL [facility] Work Phone: Protein [Mass/Vol] 6.2 g/dL Low 6.3 - 8.2 g/dL [facility] Work Phone: Hemogram w/ Autodiffon 02-11 Abs Baso Cnt 0.0 10*3/uL Normal 0.0-0.2 [facility] [employer] [facility] Comment on above: Performed By: #### H EMDF, BMP3, LFT3, LIPA4, TROPN #### [facility] [employer] System [address] [place] [address] Abs Neutrophile Cnt 7.8 10*3/uL High 1.8-7.0 [facility] Comment on above: Performed By: #### H EMDF, BMP3, LFT3, LIPA4, TROPN #### [address] [address] [place], [place] Basophils/100 WBC (Bld) 0.3 % Normal 0.0-2.0 [facility] Comment on above: Performed By: #### H EMDF, BMP3, LFT3, LIPA4, TROPN #### [address] Eosinophils (Bld) [#/Vol] 0.0 10*3/uL Normal 0.0-0.5 [facility] Comment on above: Performed By: #### H EMDF, BMP3, LFT3, LIPA4, TROPN #### [address] Eosinophils/100 WBC (Bld) 0.4 % Low 1.0-6.0 [facility] Comment on above: Performed By: #### H EMDF, BMP3, LFT3, LIPA4, TROPN #### [address] Erythrocyte distribution width (RBC) [Ratio] 12.4 % Normal 11.5-14.5 [facility] Comment on above: Performed By: #### H EMDF, BMP3, LFT3, LIPA4, TROPN #### [address] Granulocytes/100 WBC (Bld) 78.7 % Normal 40.0-80.0 [facility] Comment on above: Performed By: #### H EMDF, BMP3, LFT3, LIPA4, TROPN #### [address] Hematocrit (Bld) [Volume fraction] 34.8 % Low 35.0-47.0 [facility] Comment on above: Performed By: #### H EMDF, BMP3, LFT3, LIPA4, TROPN #### [address] Hemoglobin (Bld) [Mass/Vol] 11.8 g/dL Normal 11.7-16.0 [facility] Comment on above: Performed By: #### H EMDF, BMP3, LFT3, LIPA4, TROPN #### [address] [address] [address] [place] Lymphocytes (Bld) [#/Vol] 1.4 10*3/uL Normal 1.0-4.3 [facility] Comment on above: Performed By: #### H EMDF, BMP3, LFT3, LIPA4, TROPN #### [address] [place] [address] [place], [place] Lymphocytes/100 WBC (Bld) 14.5 % Low 20.0-40.0 [facility] Comment on above: Performed By: #### H EMDF, BMP3, LFT3, LIPA4, TROPN #### [address] MCH (RBC) [Entitic mass] 32.7 pg Normal 26.0-34.0 [facility] Comment on above: Performed By: #### H EMDF, BMP3, LFT3, LIPA4, TROPN #### [address] [place] MCHC (RBC) [Mass/Vol] 33.9 % Normal 32.0-36.0 [facility] Comment on above: Performed By: #### H EMDF, BMP3, LFT3, LIPA4, TROPN #### [address] MCV (RBC) [Entitic vol] 96.7 fL Normal 79.0-98.0 [facility] Comment on above: Performed By: #### H EMDF, BMP3, LFT3, LIPA4, TROPN #### [address] Monocytes (Bld) [#/Vol] 0.6 10*3/uL Normal 0.0-0.8 [facility] Comment on above: Performed By: #### H EMDF, BMP3, LFT3, LIPA4, TROPN #### [address] [address] Monocytes/100 WBC (Bld) 6.1 % Normal 2.0-10.0 [facility] Comment on above: Performed By: #### H EMDF, BMP3, LFT3, LIPA4, TROPN #### [address] Platelet mean volume (Bld) [Entitic vol] 10.0 fL Normal 7.4-10.4 [facility] Comment on above: Performed By: #### H EMDF, BMP3, LFT3, LIPA4, TROPN #### [address] [address] [place], [place] Platelets (Bld) [#/Vol] 193 10*3/uL Normal 140-440 [facility] Comment on above: Performed By: #### H EMDF, BMP3, LFT3, LIPA4, TROPN #### [address] RBC (Bld) [#/Vol] 3.60 10*6/uL Low 3.80-5.20 [facility] Comment on above: Performed By: #### H EMDF, BMP3, LFT3, LIPA4, TROPN #### [address] WBC (Bld) [#/Vol] 9.9 10*3/uL Normal 3.6-10.7 [facility] Comment on above: Performed By: #### H EMDF, BMP3, LFT3, LIPA4, TROPN #### [address] [address] [place], [place] Hepatic Functionon 0 ALP [Catalytic activity/Vol] 83 U/L Normal 38-126 [facility] Comment on above: Performed By: #### H EMDF, BMP3, LFT3, LIPA4, TROPN #### [address] ALT [Catalytic activity/Vol] 64 U/L Normal 13-69 [facility] Comment on above: Performed By: #### H EMDF, BMP3, LFT3, LIPA4, TROPN #### [address] [place], [place] AST [Catalytic activity/Vol] 76 U/L High 15-46 [facility] Comment on above: Performed By: #### H EMDF, BMP3, LFT3, LIPA4, TROPN #### [facility] [address] [place] Bilirubin [Mass/Vol] 0.5 mg/dL Normal 0.2-1.3 [facility] Comment on above: Performed By: #### H EMDF, BMP3, LFT3, LIPA4, TROPN #### [facility] [address] [place] Bilirubin.direct [Mass/Vol] 0.0 mg/dL Normal 0.0-0.3 [facility] Comment on above: Performed By: #### H EMDF, BMP3, LFT3, LIPA4, TROPN #### [address] [address] [address] [place] Protein [Mass/Vol] 6.2 g/dL Low 6.3-8.2 [facility] Comment on above: Performed By: #### H EMDF, BMP3, LFT3, LIPA4, TROPN #### [address] [address] [address] [place] Albumin [Mass/Vol] 3.3 g/dL Low 3.5-5.0 [facility] Comment on above: Performed By: #### H EMDF, BMP3, LFT3, LIPA4, TROPN #### [address] [address] [address] [place] Lipaseon 02-11-2019 Lipase [Catalytic activity/Vol] 164 U/L Normal 23-300 [facility] Comment on above: Performed By: #### H EMDF, BMP3, LFT3, LIPA4, TROPN #### [address] [address] [address] [place] LipaseOrdered By: Sahil wright on 02-11-2019 Lipase [Catalytic activity/Vol] 164 U/L 23 - 300 U/L [facility] Work Phone: MRI ABDOMEN WO CONTRASTOrder ed By: Gem Lowery on 02-11-2019 Patient Name: PREMA VILLALPANDO ---MRI--- Exam Date/Time 02/11/2019 13:41:50 EST Exam MRI Abdomen w/o Contrast Ordering Physician DO LOWERY ELISABETH Accession Number [id number] CPT4 Codes 73464 () Reason For Exam evaluate for choledocholithiasis Report MRI OF THE ABDOMEN WITH MRCP: Indication: History of cholelithiasis. Clinical concern for choledocholithiasis. Scan parameters: Transaxial and coronal T1 breath hold along with transaxial express T2 sequence were performed through the abdomen. In addition, thick section multi-angle and thin section multi-slice MRCP sequences were performed through the abdomen as well. Maximum intensity projection 3-D images were created with the latter data set on an independent workstation. Comparison: September 16, 2018 Findings: Motion significantly limits multiple series of the examination. The gallbladder is markedly distended and contains numerous subcentimeter gallstones. The extrapancreatic portion of the common bile duct remains mildly dilated, measuring up to approximately 8-9 mm in maximum dimension, similar to the prior study. There are multiple subcentimeter low signal structures within the common bile duct on T2-weighted images, consistent with choledocholithiasis. These may be noted for example on series 4 and series 6. There is mild intrahepatic biliary ductal dilation, new since the prior study.. No gallbladder wall thickening is identified. There is a small amount of pericholecystic fluid. There is likely a trace amount of perihepatic ascites No lesion is identified in the liver, spleen, pancreas, adrenal glands, or kidneys. There are mild inflammatory changes around the kidneys bilaterally with possible small amounts of perinephric fluid. A moderate to large hiatal hernia is again noted. No lymphadenopathy is noted. There are degenerative changes in the lower thoracic and lumbar spine. IMPRESSION:. Cholelithiasis with marked gallbladder distention and small amount of pericholecystic fluid. Choledocholithiasis with likely 3-4 subcentimeter calculi in the common bile duct. Mild extrahepatic biliary ductal dilation, similar to the prior study. Very mild intrahepatic biliary ductal dilation, new since the prior study. Chronic findings including moderate to large hiatal hernia. Report Dictated on --- Final --- Dictated: 02/11/2019 2:42 pm Dictating Physician: MD THOMAS JOE M Signed Date and Time: 02/11/2019 2:55 pm Signed by: MD THOMAS JOE M Transcribed Date and Time: 02/11/2019 2:42 [facility] Work Phone: [facility], [facility] Incoming Radiology Results From [facility] - 02/11/2019 2:56 PM EST Patient Name: PREMA VILLALPANDO ---MRI--- Exam Date/Time 02/11/2019 13:41:50 EST Exam MRI Abdomen w/o Contrast Ordering Physician DO LOWERY ELISABETH Accession Number [id number] CPT4 Codes 96087 () Reason For Exam evaluate for choledocholithiasis Report MRI OF THE ABDOMEN WITH MRCP: Indication: History of cholelithiasis. Clinical concern for choledocholithiasis. Scan parameters: Transaxial and coronal T1 breath hold along with transaxial express T2 sequence were performed through the abdomen. In addition, thick section multi-angle and thin section multi-slice MRCP sequences were performed through the abdomen as well. Maximum intensity projection 3-D images were created with the latter data set on an independent workstation. Comparison: September 16, 2018 Findings: Motion significantly limits multiple series of the examination. The gallbladder is markedly distended and contains numerous subcentimeter gallstones. The extrapancreatic portion of the common bile duct remains mildly dilated, measuring up to approximately 8-9 mm in maximum dimension, similar to the prior study. There are multiple subcentimeter low signal structures within the common bile duct on T2-weighted images, consistent with choledocholithiasis. These may be noted for example on series 4 and series 6. There is mild intrahepatic biliary ductal dilation, new since the prior study.. No gallbladder wall thickening is identified. There is a small amount of pericholecystic fluid. There is likely a trace amount of perihepatic ascites No lesion is identified in the liver, spleen, pancreas, adrenal glands, or kidneys. There are mild inflammatory changes around the kidneys bilaterally with possible small amounts of perinephric fluid. A moderate to large hiatal hernia is again noted. No lymphadenopathy is noted. There are degenerative changes in the lower thoracic and lumbar spine. IMPRESSION:. Cholelithiasis with marked gallbladder distention and small amount of pericholecystic fluid. Choledocholithiasis with likely 3-4 subcentimeter calculi in the common bile duct. Mild extrahepatic biliary ductal dilation, similar to the prior study. Very mild intrahepatic biliary ductal dilation, new since the prior study. Chronic findings including moderate to large hiatal hernia. Report Dictated on --- Final --- Dictated: 02/11/2019 2:42 pm Dictating Physician: MD THOMAS JOE M Signed Date and Time: 02/11/2019 2:55 pm Signed by: MD THOMAS JOE M Transcribed Date and Time: 02/11/2019 2:42 [facility] Work Phone: MRI Abdomen w/o Contraston 0 02-11-2019 MRI Abdomen w/o Contrast Patient Name: PREMA VILLALPANDO MRI Exam Date/Time 02/11/2019 13:41:50 EST Exam MRI Abdomen w/o Contrast Ordering Physician DO LOWERY ELISABETH Accession Number [id number] CPT4 Codes 64612 () Reason For Exam evaluate for choledocholithiasis Report MRI OF THE ABDOMEN WITH MRCP: Indication: History of cholelithiasis. Clinical concern for choledocholithiasis. Scan parameters: Transaxial and coronal T1 breath hold along with transaxial express T2 sequence were performed through the abdomen. In addition, thick section multi-angle and thin section multi-slice MRCP sequences were performed through the abdomen as well. Maximum intensity projection 3-D images were created with the latter data set on an independent workstation. Comparison: September 16, 2018 Findings: Motion significantly limits multiple series of the examination. The gallbladder is markedly distended and contains numerous subcentimeter gallstones. The extrapancreatic portion of the common bile duct remains mildly dilated, measuring up to approximately 8-9 mm in maximum dimension, similar to the prior study. There are multiple subcentimeter low signal structures within the common bile duct on T2-weighted images, consistent with choledocholithiasis. These may be noted for example on series 4 and series 6. There is mild intrahepatic biliary ductal dilation, new since the prior study.. No gallbladder wall thickening is identified. There is a small amount of pericholecystic fluid. There is likely a trace amount of perihepatic ascites No lesion is identified in the liver, spleen, pancreas, adrenal glands, or kidneys. There are mild inflammatory changes around the kidneys bilaterally with possible small amounts of perinephric fluid. A moderate to large hiatal hernia is again noted. No lymphadenopathy is noted. There are degenerative changes in the lower thoracic and lumbar spine. IMPRESSION:. Cholelithiasis with marked gallbladder distention and small amount of pericholecystic fluid. Choledocholithiasis with likely 3-4 subcentimeter calculi in the common bile duct. Mild extrahepatic biliary ductal dilation, similar to the prior study. Very mild intrahepatic biliary ductal dilation, new since the prior study. Chronic findings including moderate to large hiatal hernia. Report Dictated on Final Dictated: 02/11/2019 2:42 pm Dictating Physician: MD THOMAS JOE M Signed Date and Time: 02/11/2019 2:55 pm Signed by: MD THOMAS JOE M Transcribed Date and Time: 02/11/2019 2:42 Normal [facility] No Panel InformationOrdered By: Sahil Ribeiro on 02-11-2019 Interpretation and review of laboratory results Abnormal [facility] Work Phone: Test Performed by [facility], [address] [place] [id number] [facility] Work Phone: PROTIME/INR & PTTOrdered By: Gem Lowery on 02-11-2019 aPTT Coag (Bld) [Time] 27 s 20 - 30.5 s S [facility] Work Phone: Comment on above: NOTE: The therapeuti c time for Heparin anticoagulation, based on Xa activity inhibition, is an APTT of 46-80 seconds. INR Coag (PPP) [Relative time] 1.0 {INR} [facility] Work Phone: Comment on above: Recommended Anticoag ulant Therapy: SEE BELOW ----- INR of 2.0 - 3.0 : - Prophylaxis of Venous Thrombosis (high-risk surgery) - Treatment of Venous Thrombosis - Treatment of Pulmonary Embolism (Includes tissue heart valves, Acute Myocardial Infarction to prevent systemic embolism, Valvular Heart Disease, and Atrial Fibrillation) ----- INR of 2.5 - 3.5 : - Mechanical Prosthetic Valves (high risk) - If oral anticoagulant therapy is used to prevent Myocardial Infarction PT Coag (PPP) [Time] 11 s 9 - 12 s [facility] Work Phone: Comment on above: . Test Performed by [facility], [address] [place] [address] Work Phone: Protime AND APTTon 0 INR Coag (PPP) [Relative time] 1.0 Normal 0.9-1.1 [facility] [employer] Comment on above: Result Comment: Kervin mmended Anticoagulant Therapy: SEE BELOW ----- INR of 2.0 - 3.0 : - Prophylaxis of Venous Thrombosis (high-risk surgery) - Treatment of Venous Thrombosis - Treatment of Pulmonary Embolism (Includes tissue heart valves, Acute Myocardial Infarction to prevent systemic embolism, Valvular Heart Disease, and Atrial Fibrillation) ----- INR of 2.5 - 3.5 : - Mechanical Prosthetic Valves (high risk) - If oral anticoagulant therapy is used to prevent Myocardial Infarction Performed By: #### P T/AP #### [address] PT Coag (PPP) [Time] 11.0 s Normal 9.0-12.0 [facility] Comment on above: Result Comment: . Performed By: #### P T/AP #### [facility]) [address] aPTT Coag (Bld) [Time] 27.0 s Normal 20.0-30.5 [facility] Comment on above: Result Comment: NOTE : The therapeutic time for Heparin anticoagulation, based on Xa activity inhibition, is an APTT of 46-80 seconds. Performed By: #### P T/AP #### [facility] ([employer]) [address] TroponinOrdered By: Jf on 02-11-2019 Troponin I.cardiac [Mass/Vol] ng/mL 0 - 0.034 ng/mL [facility] Work Phone: Comment on above: . Test Performed by [facility], [address] [place] [address] [facility] Work Phone: Troponin Ion 02-11-2019 Troponin I.cardiac [Mass/Vol] ng/mL Normal 0.000-0.034 [facility] Comment on above: Result Comment: . Performed By: #### H EMDF, BMP3, LFT3, LIPA4, TROPN #### [facility] [address] [place] [address] US ABDOMEN LIMITED Specify o rgan? GALLBLADDER, PANCREAS, LIVEROrdered By: Yusuf Andino on 02-11-2019 Patient Name: PREMA VILLALPANDO ---Ultrasound--- Exam Date/Time 02/11/2019 08:31:45 EST Exam US Abdomen Limited Ordering Physician iRta ANDINO, YUSUF Lou Accession Number [id number] CPT4 Codes 67592 () Reason For Exam RUQ pain Report Reason for examination: Right upper quadrant pain. A sonogram of the right upper quadrant is performed. The liver is heterogeneous in echotexture. No focal hyper or hypoechoic masses are identified in their is no intrahepatic biliary ductal dilatation. The gallbladder is the mildly distended. There are small shadowing gallstones in the dependent portion of the gallbladder. There is no gallbladder wall thickening or para cholecystic edema. No sonographic Christianson's sign was elicited. The common bile duct is dilated measuring 10.4 mm. There is an echogenic non shadowing focus within the common bile duct suspicious for a common bile duct stone. The pancreas appears echogenic. No obvious mass or peripancreatic fluid collection is identified. The pancreatic duct is upper limits of normal in size. The right kidney measures 9.9 cm in length. There is no obvious renal mass, calculus or hydronephrosis. There is no ascites. IMPRESSION: Cholelithiasis. Suspect choledocholithiasis. Heterogeneous liver which can be an indication of underlying hepatocellular disease. Report Dictated on --- Final --- Dictated: 02/11/2019 9:06 am Dictating Physician: MD ERNANDEZ LAUREN B Signed Date and Time: 02/11/2019 9:09 am Signed by: MD ERNANDEZ LAUREN B Transcribed Date and Time: 02/11/2019 9:06 [facility] Work Phone: [facility], [facility] Incoming Radiology Results From [facility] - 02/11/2019 9:11 AM EST Patient Name: PREMA VILLALPANDO ---Ultrasound--- Exam Date/Time 02/11/2019 08:31:45 EST Exam US Abdomen Limited Ordering Physician Rita ANDINO SHELLY D Accession Number [id number] CPT4 Codes 42171 () Reason For Exam RUQ pain Report Reason for examination: Right upper quadrant pain. A sonogram of the right upper quadrant is performed. The liver is heterogeneous in echotexture. No focal hyper or hypoechoic masses are identified in their is no intrahepatic biliary ductal dilatation. The gallbladder is the mildly distended. There are small shadowing gallstones in the dependent portion of the gallbladder. There is no gallbladder wall thickening or para cholecystic edema. No sonographic Christianson's sign was elicited. The common bile duct is dilated measuring 10.4 mm. There is an echogenic non shadowing focus within the common bile duct suspicious for a common bile duct stone. The pancreas appears echogenic. No obvious mass or peripancreatic fluid collection is identified. The pancreatic duct is upper limits of normal in size. The right kidney measures 9.9 cm in length. There is no obvious renal mass, calculus or hydronephrosis. There is no ascites. IMPRESSION: Cholelithiasis. Suspect choledocholithiasis. Heterogeneous liver which can be an indication of underlying hepatocellular disease. Report Dictated on --- Final --- Dictated: 02/11/2019 9:06 am Dictating Physician: MD ERNANDEZ LAUREN B Signed Date and Time: 02/11/2019 9:09 am Signed by: MD ERNANDEZ LAUREN B Transcribed Date and Time: 02/11/2019 9:06 [facility] Work Phone: US Abdomen Limitedon US Abdomen Limited Patient Name: PREMA VILLALPANDO Ultrasound Exam Date/Time 02/11/2019 08:31:45 EST Exam US Abdomen Limited Ordering Physician Rita ANDINO SHELLY D Accession Number [id number] CPT4 Codes 03159 () Reason For Exam RUQ pain Report Reason for examination: Right upper quadrant pain. A sonogram of the right upper quadrant is performed. The liver is heterogeneous in echotexture. No focal hyper or hypoechoic masses are identified in their is no intrahepatic biliary ductal dilatation. The gallbladder is the mildly distended. There are small shadowing gallstones in the dependent portion of the gallbladder. There is no gallbladder wall thickening or para cholecystic edema. No sonographic Christianson's sign was elicited. The common bile duct is dilated measuring 10.4 mm. There is an echogenic non shadowing focus within the common bile duct suspicious for a common bile duct stone. The pancreas appears echogenic. No obvious mass or peripancreatic fluid collection is identified. The pancreatic duct is upper limits of normal in size. The right kidney measures 9.9 cm in length. There is no obvious renal mass, calculus or hydronephrosis. There is no ascites. IMPRESSION: Cholelithiasis. Suspect choledocholithiasis. Heterogeneous liver which can be an indication of underlying hepatocellular disease. Report Dictated on Final Dictated: 02/11/2019 9:06 am Dictating Physician: MD ERNANDEZ LAUREN B Signed Date and Time: 02/11/2019 9:09 am Signed by: MD ERNANDEZ LAUREN B Transcribed Date and Time: 02/11/2019 9:06 Normal [facility] Comprehensive Metabolic Pane keely 09-21-2018 Albumin [Mass/Vol] 3.5 g/dL 3.5 - 5 g/dL [place], [place] ALP [Catalytic activity/Vol] 117 U/L 38 - 126 U/L [place] ALT [Catalytic activity/Vol] 47 U/L 13 - 69 U/L [place] Anion gap [Moles/Vol] 5 mmol/L [place] AST [Catalytic activity/Vol] 137 U/L High 15 - 46 U/L [place] Bilirubin Ql (U) 0.7 mg/dL 0.2 - 1.3 mg/dL [place] Calcium [Mass/Vol] 9.4 mg/dL 8.4 - 10. 4 mg/dL [place] Chloride [Moles/Vol] 102 mmol/L 98 - 10 7 mmol/L [place] CO2 [Moles/Vol] 28 mmol/L 22 - 30 mmol/L [place] Creatinine [Mass/Vol] 0.61 mg/dL 0.52 - 1.25 mg/dL [place] EGFR IF NonAfrican Samoan >60.0 >60 mL/min [place] Comment on above: Source- MDRD equatio n with creatinine calibration to IDMS(NKDEP) eGFR not recommended for drug dose adjustment GFR/1.73 sq M predicted among blacks MDRD (S/P/Bld) [Vol rate/Area] mL/min/{1.73_m2} >60 mL/min [place] Glucose [Mass/Vol] 135 mg/dL High 70 - 100 mg/dL [place] Interpretation and review of laboratory results Abnormal [place] Potassium [Moles/Vol] 3.4 mmol/L Low 3.5 - 5.1 mmol/L [place] Protein [Mass/Vol] 6.6 g/dL 6.3 - 8.2 g/dL [place] Sodium [Moles/Vol] 134 mmol/L Low 135 - 145 mmol/L [place] Urea nitrogen [Mass/Vol] 5 mg/dL Low 7 - 20 mg/dL [place] Test Performed by [facility], [address], [place], [place] [address] [place] CBC Auto Differentialon 09-08 Absolute Baso # 0.1 10*3/uL 0 - 0.2 10*3/uL [place] Absolute Neut # 5.1 10*3/uL 1.8 - 7 10*3/uL [place] Basophils/100 WBC (Bld) 0.8 % 0 - 2 % [place] Eosinophils (Bld) [#/Vol] 0.2 10*3/uL 0 - 0.5 10*3/uL [place] Eosinophils/100 WBC (Bld) 3.4 % 1 - 6 % [place] Erythrocyte distribution width (RBC) [Ratio] 17.3 % High 11.5 - 14.5 % [place] Granulocytes/100 WBC (Bld) 68.2 % 40 - 80 % [place] Hematocrit (Bld) [Volume fraction] 35.1 % 35 - 47 % [place] Hemoglobin (Bld) [Mass/Vol] 11.4 g/dL Low 11.7 - 16 g/dL [place] Interpretation and review of laboratory results Abnormal [place] Lymphocytes (Bld) [#/Vol] 1.5 10*3/uL 1 - 4.3 10*3/uL [place] Lymphocytes/100 WBC (Bld) 20.2 % 20 - 40 % [place] MCH (RBC) [Entitic mass] 29.0 pg 26 - 34 pg [place] MCHC (RBC) [Mass/Vol] 32.6 % 32 - 36 % [place] MCV (RBC) [Entitic vol] 88.9 fL 79 - 98 fL [place] Monocytes (Bld) [#/Vol] 0.5 10*3/uL 0 - 0.8 10*3/uL [place] Monocytes/100 WBC (Bld) 7.4 % 2 - 10 % [place] Platelet mean volume (Bld) [Entitic vol] 9.6 fL 7.4 - 10.4 fL [place] Platelets (Bld) [#/Vol] 232 10*3/uL 140 - 440 10*3/uL [place] RBC (Bld) [#/Vol] 3.95 10*6/uL 3.8 - 5.2 10*6/uL [place] WBC (Bld) [#/Vol] 7.4 10*3/uL 3.6 - 10.7 10*3/uL [place] Test Performed by [facility], [address], [place], [place] [address] [place] Comprehensive Metabolic Pane keely 09-20-2018 Albumin [Mass/Vol] 3.6 g/dL 3.5 - 5 g/dL [place] ALP [Catalytic activity/Vol] 141 U/L High 38 - 126 U/L [place] ALT [Catalytic activity/Vol] 56 U/L 13 - 69 U/L [place] Anion gap [Moles/Vol] 10 mmol/L [place] AST [Catalytic activity/Vol] 68 U/L High 15 - 46 U/L [place] Bilirubin Ql (U) 0.6 mg/dL 0.2 - 1.3 mg/dL [place] Calcium [Mass/Vol] 9.3 mg/dL 8.4 - 10. 4 mg/dL [place] Chloride [Moles/Vol] 104 mmol/L 98 - 10 7 mmol/L [place] CO2 [Moles/Vol] 25 mmol/L 22 - 30 mmol/L [place] Creatinine [Mass/Vol] 0.63 mg/dL 0.52 - 1.25 mg/dL [place] EGFR IF NonAfrican Samoan >60.0 >60 mL/min [place] Comment on above: Source- MDRD equatio n with creatinine calibration to IDMS(NKDEP) eGFR not recommended for drug dose adjustment GFR/1.73 sq M predicted among blacks MDRD (S/P/Bld) [Vol rate/Area] mL/min/{1.73_m2} >60 mL/min [place] Glucose [Mass/Vol] 136 mg/dL High 70 - 100 mg/dL [place] Potassium [Moles/Vol] 3.7 mmol/L 3.5 - 5.1 mmol/L [place] Protein [Mass/Vol] 6.6 g/dL 6.3 - 8.2 g/dL [place] Sodium [Moles/Vol] 140 mmol/L 135 - 145 mmol/L [place] Urea nitrogen [Mass/Vol] 8 mg/dL 7 - 20 mg/dL [facility] Lactate Dehydrogenaseon 09-08 LD 182 U/L High 50 - 170 U/L [facility] Otheron 09-20-2018 Blood Culture, Routine No growth at 5 days. [facility] Test Performed by [facility], [address] [place] [address] Specimen Source Comment:Blood [place] Interpretation and review of laboratory results Abnormal [place] Test Performed by [facility], [address], [place], [place] [address] [place] CBC Auto Differentialon 09-08 Absolute Baso # 0.1 10*3/uL 0 - 0.2 10*3/uL [place] Absolute Neut # 4.2 10*3/uL 1.8 - 7 10*3/uL [place] Basophils/100 WBC (Bld) 1.0 % 0 - 2 % [place] Eosinophils (Bld) [#/Vol] 0.2 10*3/uL 0 - 0.5 10*3/uL [place] Eosinophils/100 WBC (Bld) 4.0 % 1 - 6 % [place] Erythrocyte distribution width (RBC) [Ratio] 17.7 % High 11.5 - 14.5 % [place] Granulocytes/100 WBC (Bld) 68.4 % 40 - 80 % [place] Hematocrit (Bld) [Volume fraction] 32.0 % Low 35 - 47 % [place] Hemoglobin (Bld) [Mass/Vol] 10.6 g/dL Low 11.7 - 16 g/dL [place] Interpretation and review of laboratory results Abnormal [facility] Lymphocytes (Bld) [#/Vol] 1.2 10*3/uL 1 - 4.3 10*3/uL [place] Lymphocytes/100 WBC (Bld) 19.7 % Low 20 - 40 % [place] MCH (RBC) [Entitic mass] 29.0 pg 26 - 34 pg [place] MCHC (RBC) [Mass/Vol] 33.2 % 32 - 36 % [place] MCV (RBC) [Entitic vol] 87.4 fL 79 - 98 fL [place] Monocytes (Bld) [#/Vol] 0.4 10*3/uL 0 - 0.8 10*3/uL [place] Monocytes/100 WBC (Bld) 6.9 % 2 - 10 % [place] Platelet mean volume (Bld) [Entitic vol] 9.4 fL 7.4 - 10.4 fL [place] Platelets (Bld) [#/Vol] 225 10*3/uL 140 - 440 10*3/uL [place] RBC (Bld) [#/Vol] 3.66 10*6/uL Low 3.8 - 5.2 10*6/uL [place] WBC (Bld) [#/Vol] 6.2 10*3/uL 3.6 - 10.7 10*3/uL [place] Test Performed by [facility], [address], [place], [place] [address] [place] Comprehensive Metabolic Pane keely 09-19-2018 Albumin [Mass/Vol] 3.3 g/dL Low 3.5 - 5 g/dL [place] ALP [Catalytic activity/Vol] 117 U/L 38 - 126 U/L [place] ALT [Catalytic activity/Vol] 78 U/L High 13 - 69 U/L [place] Anion gap [Moles/Vol] 5 mmol/L [place] AST [Catalytic activity/Vol] 52 U/L High 15 - 46 U/L [place] Bilirubin Ql (U) 0.8 mg/dL 0.2 - 1.3 mg/dL [place] Calcium [Mass/Vol] 9.0 mg/dL 8.4 - 10. 4 mg/dL [place] Chloride [Moles/Vol] 102 mmol/L 98 - 10 7 mmol/L [place] CO2 [Moles/Vol] 27 mmol/L 22 - 30 mmol/L [place] Creatinine [Mass/Vol] 0.66 mg/dL 0.52 - 1.25 mg/dL [place] EGFR IF NonAfrican [place]oan >60.0 >60 mL/min [place] Comment on above: Source- MDRD equatio n with creatinine calibration to IDMS(NKDEP) eGFR not recommended for drug dose adjustment GFR/1.73 sq M predicted among blacks MDRD (S/P/Bld) [Vol rate/Area] mL/min/{1.73_m2} >60 mL/min [place] Glucose [Mass/Vol] 125 mg/dL High 70 - 100 mg/dL [place] Interpretation and review of laboratory results Abnormal [place] Potassium [Moles/Vol] 3.8 mmol/L 3.5 - 5.1 mmol/L [place] Protein [Mass/Vol] 6.3 g/dL 6.3 - 8.2 g/dL [place] Sodium [Moles/Vol] 133 mmol/L Low 135 - 145 mmol/L [place] Urea nitrogen [Mass/Vol] 10 mg/dL 7 - 20 mg/dL [place] Lipaseon 09-19-2018 Lipase [Catalytic activity/Vol] 247 U/L 23 - 300 U/L [place] Otheron 09-19-2018 Test Performed by [facility], [address] [place], [place] [address] [place] US ABDOMEN LIMITEDon 019 Patient Name: PREMA VILLALPANDO ---Ultrasound--- Exam Date/Time 09/19/2018 14:28:18 EDT Exam US Abdomen Limited Ordering Physician MD CHONG, SEEMA Wheeler Accession Number [id number] CPT4 Codes 95087 () Reason For Exam re-eval pancreas, rising lipase Report Clinical indications: Rising lipase levels FINDINGS: Comparison is made with a previous exam from 09/15/2018. The liver continues to demonstrate a heterogeneous overall echo pattern, without definite evidence of focal abnormality. No intrahepatic biliary duct dilation is appreciated. There is no ascites. Multiple mobile, shadowing echogenic foci are present in the gallbladder lumen, similar to the prior exam. The sonographic Christianson's sign is positive. There is borderline wall thickening at 3 mm. There is no pericholecystic fluid. There is mild common bile duct dilation at 9 mm. No definite pancreatic abnormality is seen. As was the case in the previous exam, the tail is obscured by bowel gas and cannot be evaluated. An abnormality in this area would not be detected in the current study. The right kidney measures 10.3 x 4.3 x 4.4 cm and shows no evidence of mass, calculus or hydronephrosis. Aorta and IVC are not well visualized. IMPRESSION: No definite pancreatic abnormality. The tail cannot be evaluated. Cholelithiasis with gallbladder wall thickening and mild common bile duct dilation and positive sonographic Christianson's sign. The clinical significance of this observation is uncertain in the absence of any pericholecystic fluid. If there is clinical concern for functional gallbladder abnormality, this could be further evaluated by HIDA scan with ejection fraction. Report Dictated on --- Final --- Dictating Physician: MD FOSS RUSSELL Signed Date and Time: 09/19/2018 3:28 pm Signed by: MD FOSS RUSSELL Transcribed Date and Time: 09/19/2018 3:29 [place], [facility] [facility] Incoming Radiology Results From [facility] - 09/19/2018 3:29 PM EDT Patient Name: PREMA VILLALPANDO ---Ultrasound--- Exam Date/Time 09/19/2018 14:28:18 EDT Exam US Abdomen Limited Ordering Physician MD SCHWARZ RICHARD H Accession Number [id number] CPT4 Codes 43083 () Reason For Exam re-eval pancreas, rising lipase Report Clinical indications: Rising lipase levels FINDINGS: Comparison is made with a previous exam from 09/15/2018. The liver continues to demonstrate a heterogeneous overall echo pattern, without definite evidence of focal abnormality. No intrahepatic biliary duct dilation is appreciated. There is no ascites. Multiple mobile, shadowing echogenic foci are present in the gallbladder lumen, similar to the prior exam. The sonographic Christianson's sign is positive. There is borderline wall thickening at 3 mm. There is no pericholecystic fluid. There is mild common bile duct dilation at 9 mm. No definite pancreatic abnormality is seen. As was the case in the previous exam, the tail is obscured by bowel gas and cannot be evaluated. An abnormality in this area would not be detected in the current study. The right kidney measures 10.3 x 4.3 x 4.4 cm and shows no evidence of mass, calculus or hydronephrosis. Aorta and IVC are not well visualized. IMPRESSION: No definite pancreatic abnormality. The tail cannot be evaluated. Cholelithiasis with gallbladder wall thickening and mild common bile duct dilation and positive sonographic Christianson's sign. The clinical significance of this observation is uncertain in the absence of any pericholecystic fluid. If there is clinical concern for functional gallbladder abnormality, this could be further evaluated by HIDA scan with ejection fraction. Report Dictated on --- Final --- Dictating Physician: MD FOSS RUSSELL Signed Date and Time: 09/19/2018 3:28 pm Signed by: MD FOSS RUSSELL Transcribed Date and Time: 09/19/2018 3:29 [place] CBC Auto Differentialon 09-08 Absolute Baso # 0.1 10*3/uL 0 - 0.2 10*3/uL [place] Absolute Neut # 6.1 10*3/uL 1.8 - 7 10*3/uL [place] Basophils/100 WBC (Bld) 0.9 % 0 - 2 % [place] Eosinophils (Bld) [#/Vol] 0.4 10*3/uL 0 - 0.5 10*3/uL [place] Eosinophils/100 WBC (Bld) 4.0 % 1 - 6 % [place] Erythrocyte distribution width (RBC) [Ratio] 18.1 % High 11.5 - 14.5 % [place] Granulocytes/100 WBC (Bld) 68.6 % 40 - 80 % [place] Hematocrit (Bld) [Volume fraction] 36.2 % 35 - 47 % [place] Hemoglobin (Bld) [Mass/Vol] 11.8 g/dL 11.7 - 16 g/dL [place] Lymphocytes (Bld) [#/Vol] 1.8 10*3/uL 1 - 4.3 10*3/uL [place] Lymphocytes/100 WBC (Bld) 19.9 % Low 20 - 40 % [place] MCH (RBC) [Entitic mass] 28.8 pg 26 - 34 pg [place] MCHC (RBC) [Mass/Vol] 32.7 % 32 - 36 % [place] MCV (RBC) [Entitic vol] 88.1 fL 79 - 98 fL [place] Monocytes (Bld) [#/Vol] 0.6 10*3/uL 0 - 0.8 10*3/uL [place] Monocytes/100 WBC (Bld) 6.6 % 2 - 10 % [place] Platelet mean volume (Bld) [Entitic vol] 9.3 fL 7.4 - 10.4 fL [place] Platelets (Bld) [#/Vol] 281 10*3/uL 140 - 440 10*3/uL [place] RBC (Bld) [#/Vol] 4.11 10*6/uL 3.8 - 5.2 10*6/uL [place] WBC (Bld) [#/Vol] 8.9 10*3/uL 3.6 - 10.7 10*3/uL [place] Comprehensive Metabolic Pane keely 09-18-2018 Albumin [Mass/Vol] 3.7 g/dL 3.5 - 5 g/dL [place] ALP [Catalytic activity/Vol] 165 U/L High 38 - 126 U/L [place] ALT [Catalytic activity/Vol] 93 U/L High 13 - 69 U/L [place] Anion gap [Moles/Vol] 5 mmol/L [place] AST [Catalytic activity/Vol] 69 U/L High 15 - 46 U/L [place] Bilirubin Ql (U) 0.8 mg/dL 0.2 - 1.3 mg/dL [place] Calcium [Mass/Vol] 9.4 mg/dL 8.4 - 10. 4 mg/dL [place] Chloride [Moles/Vol] 102 mmol/L 98 - 10 7 mmol/L [place] CO2 [Moles/Vol] 28 mmol/L 22 - 30 mmol/L [place] Creatinine [Mass/Vol] 0.7 mg/dL 0.52 - 1.25 mg/dL [place] EGFR IF NonAfrican Samoan >60.0 >60 mL/min [place] Comment on above: Source- MDRD equatio n with creatinine calibration to IDMS(NKDEP) eGFR not recommended for drug dose adjustment GFR/1.73 sq M predicted among blacks MDRD (S/P/Bld) [Vol rate/Area] mL/min/{1.73_m2} >60 mL/min [place] Glucose [Mass/Vol] 133 mg/dL High 70 - 100 mg/dL [place] Potassium [Moles/Vol] 3.6 mmol/L 3.5 - 5.1 mmol/L [place] Protein [Mass/Vol] 7.0 g/dL 6.3 - 8.2 g/dL [place] Sodium [Moles/Vol] 136 mmol/L 135 - 145 mmol/L [place] Urea nitrogen [Mass/Vol] 10 mg/dL 7 - 20 mg/dL [place] Lipaseon 09-18-2018 Lipase [Catalytic activity/Vol] 513 U/L High 23 - 300 U/L [place] Otheron 09-18-2018 Interpretation and review of laboratory results Abnormal [place] Test Performed by [facility], [address], [place], [place] [address] [place] Comprehensive Metabolic Pane keely 09-17-2018 Albumin [Mass/Vol] 3.4 g/dL Low 3.5 - 5 g/dL [place] ALP [Catalytic activity/Vol] 146 U/L High 38 - 126 U/L [place] ALT [Catalytic activity/Vol] 109 U/L High 13 - 69 U/L [place] Anion gap [Moles/Vol] 7 mmol/L [place] AST [Catalytic activity/Vol] 76 U/L High 15 - 46 U/L [place] Bilirubin Ql (U) 0.6 mg/dL 0.2 - 1.3 mg/dL [place] Calcium [Mass/Vol] 9.0 mg/dL 8.4 - 10. 4 mg/dL [place] Chloride [Moles/Vol] 104 mmol/L 98 - 10 7 mmol/L [place] CO2 [Moles/Vol] 27 mmol/L 22 - 30 mmol/L [place] Creatinine [Mass/Vol] 0.66 mg/dL 0.52 - 1.25 mg/dL [place] EGFR IF NonAfrican Samoan >60.0 >60 mL/min [place] Comment on above: Source- MDRD equatio n with creatinine calibration to IDMS(NKDEP) eGFR not recommended for drug dose adjustment GFR/1.73 sq M predicted among blacks MDRD (S/P/Bld) [Vol rate/Area] mL/min/{1.73_m2} >60 mL/min [place] Glucose [Mass/Vol] 141 mg/dL High 70 - 100 mg/dL [place] Potassium [Moles/Vol] 3.3 mmol/L Low 3.5 - 5.1 mmol/L [place] Protein [Mass/Vol] 6.4 g/dL 6.3 - 8.2 g/dL [place] Sodium [Moles/Vol] 139 mmol/L 135 - 145 mmol/L [place] Urea nitrogen [Mass/Vol] 8 mg/dL 7 - 20 mg/dL [place] Lipaseon 09-17-2018 Lipase [Catalytic activity/Vol] 351 U/L High 23 - 300 U/L [place] NM HEPATOBILIARY W/O CCKon 0 09-17-2018 Patient Name: PREMA VILLALPANDO ---Nuc Med--- Exam Date/Time 09/17/2018 09:00:00 EDT Exam NM Hepatobiliary System Imaging Ordering Physician KIKO LAU MD Accession Number [id number] CPT4 Codes 87460 () Reason For Exam abd pain Report HEPATOBILIARY SCAN CLINICAL INDICATION: Abdominal pain Following the intravenous administration of 3.1 mCi Tc-99m mebrofenin, a hepatobiliary study was performed. Images were then acquired over the abdomen in the anterior projection for approximately one hour. COMPARISON: None FINDINGS: Normal radiopharmaceutical uptake is demonstrated within the liver, with excretion into the biliary tree. Activity is demonstrated within the gallbladder within 50 minutes. Tracer also passes into the small bowel. IMPRESSION: No evidence of acute cholecystitis or common bile duct obstruction. Report Dictated on --- Final --- Dictating Physician: MD WORRELL ANTHONY J Signed Date and Time: 09/17/2018 10:53 am Signed by: MD WORRELL ANTHONY J Transcribed Date and Time: 09/17/2018 10:54 [place], [facility] Incoming Radiology Results From [facility] - 09/17/2018 10:55 AM EDT Patient Name: PREMA VILLALPANDO ---[facility] Med--- Exam Date/Time 09/17/2018 09:00:00 EDT Exam NM Hepatobiliary System Imaging Ordering Physician KIKO LAU MD Accession Number [id number] CPT4 Codes 14005 () Reason For Exam abd pain Report HEPATOBILIARY SCAN CLINICAL INDICATION: Abdominal pain Following the intravenous administration of 3.1 mCi Tc-99m mebrofenin, a hepatobiliary study was performed. Images were then acquired over the abdomen in the anterior projection for approximately one hour. COMPARISON: None FINDINGS: Normal radiopharmaceutical uptake is demonstrated within the liver, with excretion into the biliary tree. Activity is demonstrated within the gallbladder within 50 minutes. Tracer also passes into the small bowel. IMPRESSION: No evidence of acute cholecystitis or common bile duct obstruction. Report Dictated on --- Final --- Dictating Physician: MD WORRELL ANTHONY J Signed Date and Time: 09/17/2018 10:53 am Signed by: MD WORRELL ANTHONY J Transcribed Date and Time: 09/17/2018 10:54 [place] Otheron 09-17-2018 Interpretation and review of laboratory results Abnormal [place] Test Performed by [facility], [address] [place], [place] [address] [place] URINE CULTUREon 09-17-2018 Bacteria identified Cx Nom (U) Group B streptococcus Abnormal [place] Bacteria identified Cx Nom (U) 10,000-50,000 CFU/ml Susceptibility testing not routinely performed. Group B streptococcus is universally susceptible to beta-lactam antibiotics and vancomycin. If patient is beta-lactam allergic, please call [facility] Microbiology lab ([phone]) within 2 days to request susceptibility testing. If isolated from urine, Group B strep may indicate colonization or infection. [place] Bacteria identified Cx Nom (U) Normal urogenital nayeli present. Abnormal [place] Interpretation and review of laboratory results Abnormal [place] Test Performed by [facility], [address] [place] [address] Specimen Source Comment:Urine, clean catch [place] CBCon 09-16-2018 Erythrocyte distribution width (RBC) [Ratio] 17.5 % High 11.5 - 14.5 % [place] Hematocrit (Bld) [Volume fraction] 34.0 % Low 35 - 47 % [place] Hemoglobin (Bld) [Mass/Vol] 11.3 g/dL Low 11.7 - 16 g/dL [place] Interpretation and review of laboratory results Abnormal [place] MCH (RBC) [Entitic mass] 28.9 pg 26 - 34 pg [place] MCHC (RBC) [Mass/Vol] 33.2 % 32 - 36 % [place] MCV (RBC) [Entitic vol] 87.1 fL 79 - 98 fL [place] Platelet mean volume (Bld) [Entitic vol] 9.4 fL 7.4 - 10.4 fL [place] Platelets (Bld) [#/Vol] 247 10*3/uL 140 - 440 10*3/uL [place] RBC (Bld) [#/Vol] 3.91 10*6/uL 3.8 - 5.2 10*6/uL [place] WBC (Bld) [#/Vol] 8.1 10*3/uL 3.6 - 10.7 10*3/uL [place] Test Performed by [facility], [address], [place], [place] [address] [place] Comprehensive Metabolic Pane l w/ Reflex to MGon 09-16-2018 Albumin [Mass/Vol] 3.7 g/dL 3.5 - 5 g/dL [place] ALP [Catalytic activity/Vol] 145 U/L High 38 - 126 U/L [place] ALT [Catalytic activity/Vol] 145 U/L High 13 - 69 U/L [place] Anion gap [Moles/Vol] 7 mmol/L [place] AST [Catalytic activity/Vol] 133 U/L High 15 - 46 U/L [place] Bilirubin Ql (U) 0.9 mg/dL 0.2 - 1.3 mg/dL [place] Calcium [Mass/Vol] 9.1 mg/dL 8.4 - 10. 4 mg/dL [place] Chloride [Moles/Vol] 99 mmol/L 98 - 10 7 mmol/L [place] CO2 [Moles/Vol] 29 mmol/L 22 - 30 mmol/L [place] Creatinine [Mass/Vol] 0.75 mg/dL 0.52 - 1.25 mg/dL [place] EGFR IF NonAfrican Samoan >60.0 >60 mL/min [place] Comment on above: Source- MDRD equatio n with creatinine calibration to IDMS(NKDEP) eGFR not recommended for drug dose adjustment GFR/1.73 sq M predicted among blacks MDRD (S/P/Bld) [Vol rate/Area] mL/min/{1.73_m2} >60 mL/min [place] Glucose [Mass/Vol] 131 mg/dL High 70 - 100 mg/dL [place] Interpretation and review of laboratory results Abnormal [place] Potassium [Moles/Vol] 3.2 mmol/L Low 3.5 - 5.1 mmol/L [place] Protein [Mass/Vol] 6.8 g/dL 6.3 - 8.2 g/dL [place] Sodium [Moles/Vol] 135 mmol/L 135 - 145 mmol/L [place] Urea nitrogen [Mass/Vol] 11 mg/dL 7 - 20 mg/dL [place] Test Performed by [facility], [address], [place], [place] [address] [place] MRI ABDOMEN WO CONTRASTon Patient Name: PREMA VILLALPANDO ---MRI--- Exam Date/Time 09/16/2018 16:17:45 EDT Exam MRI Abdomen w/o Contrast Ordering Physician KIKO LAU MD Accession Number [id number] CPT4 Codes 15565 () Reason For Exam gallstones,abd pain Report MRI OF THE ABDOMEN WITH MRCP: Indication: Abdominal pain. Elevated liver enzymes. Cholelithiasis. Scan parameters: Transaxial and coronal T1 and T2 breath hold along with transaxial and coronal gradient echo sequences were performed through the abdomen. In addition, thick section multi-angle and thin section multi- slice MRCP sequences were performed through the abdomen as well. Maximum intensity projection 3-D images were created with the latter data set on an independent workstation. Comparison: Right upper quadrant ultrasound dated 09/15/2018. Findings: The extrapancreatic portion of the common bile duct measures approximately 8 mm in maximum dimension, at the upper limits of normal to mildly dilated given the patient's age. There is no intrahepatic biliary ductal dilation. The intrapancreatic portion of the common bile duct is normal in caliber. There is no pancreatic ductal dilation. No filling defects are identified. A normal tapered configuration of the distal end of the common bile duct is noted. Numerous small gallstones are again noted. There is a trace amount of fluid around the gallbladder with probable mild wall thickening. The main pancreatic duct is identified and is normal in caliber. The liver demonstrates no focal lesion. The spleen and pancreas demonstrate no apparent abnormalities as well. There are degenerative changes in the lumbar spine with mild levoscoliosis. There is a partially imaged hiatal hernia. IMPRESSION: Mild distention of the extrapancreatic portion of the common bile duct without obstructing lesion identified. No definite choledocholithiasis. Numerous small gallstones with trace amount of fluid around the gallbladder and mild gallbladder wall thickening. Other findings as described including hiatal hernia. Report Dictated on --- Final --- Dictating Physician: MD THOMAS JOE M Signed Date and Time: 09/16/2018 6:05 pm Signed by: MD THOMAS JOE M Transcribed Date and Time: 09/16/2018 6:06 [facility], [place], [facility] Incoming Radiology Results From [facility] - 09/16/2018 6:06 PM EDT Patient Name: PREMA VILLALPANDO ---MRI--- Exam Date/Time 09/16/2018 16:17:45 EDT Exam MRI Abdomen w/o Contrast Ordering Physician KIKO LAU MD Accession Number [id number] CPT4 Codes 88832 () Reason For Exam gallstones,abd pain Report MRI OF THE ABDOMEN WITH MRCP: Indication: Abdominal pain. Elevated liver enzymes. Cholelithiasis. Scan parameters: Transaxial and coronal T1 and T2 breath hold along with transaxial and coronal gradient echo sequences were performed through the abdomen. In addition, thick section multi-angle and thin section multi- slice MRCP sequences were performed through the abdomen as well. Maximum intensity projection 3-D images were created with the latter data set on an independent workstation. Comparison: Right upper quadrant ultrasound dated 09/15/2018. Findings: The extrapancreatic portion of the common bile duct measures approximately 8 mm in maximum dimension, at the upper limits of normal to mildly dilated given the patient's age. There is no intrahepatic biliary ductal dilation. The intrapancreatic portion of the common bile duct is normal in caliber. There is no pancreatic ductal dilation. No filling defects are identified. A normal tapered configuration of the distal end of the common bile duct is noted. Numerous small gallstones are again noted. There is a trace amount of fluid around the gallbladder with probable mild wall thickening. The main pancreatic duct is identified and is normal in caliber. The liver demonstrates no focal lesion. The spleen and pancreas demonstrate no apparent abnormalities as well. There are degenerative changes in the lumbar spine with mild levoscoliosis. There is a partially imaged hiatal hernia. IMPRESSION: Mild distention of the extrapancreatic portion of the common bile duct without obstructing lesion identified. No definite choledocholithiasis. Numerous small gallstones with trace amount of fluid around the gallbladder and mild gallbladder wall thickening. Other findings as described including hiatal hernia. Report Dictated on --- Final --- Dictating Physician: MD THOMAS JOE M Signed Date and Time: 09/16/2018 6:05 pm Signed by: MD THOMAS JOE M Transcribed Date and Time: 09/16/2018 6:06 [place] Magnesiumon 09-16-2018 Magnesium [Mass/Vol] 1.7 mg/dL 1.6 - 2 .3 mg/dL [place] Test Performed by [facility], [address] Troponinon 09-16-2018 Troponin I.cardiac [Mass/Vol] ng/mL 0 - 0.034 ng/mL [place] Comment on above: < 0.034 = negative 0.034 0.120 = indeterminate > 0.120 = positive Test Performed by [facility], [address] CBC Auto Differentialon Absolute Baso # 0.1 10*3/uL 0 - 0.2 10*3/uL [place] Absolute Neut # 5.9 10*3/uL 1.8 - 7 10*3/uL [place] Basophils/100 WBC (Bld) 1.1 % 0 - 2 % [place] Eosinophils (Bld) [#/Vol] 0.3 10*3/uL 0 - 0.5 10*3/uL [place] Eosinophils/100 WBC (Bld) 3.2 % 1 - 6 % [place] Erythrocyte distribution width (RBC) [Ratio] 17.4 % High 11.5 - 14.5 % [place] Granulocytes/100 WBC (Bld) 67.0 % 40 - 80 % [place] Hematocrit (Bld) [Volume fraction] 36.5 % 35 - 47 % [place] Hemoglobin (Bld) [Mass/Vol] 12.0 g/dL 11.7 - 16 g/dL [place] Interpretation and review of laboratory results Abnormal [place] Lymphocytes (Bld) [#/Vol] 2.0 10*3/uL 1 - 4.3 10*3/uL [place] Lymphocytes/100 WBC (Bld) 22.6 % 20 - 40 % [place] MCH (RBC) [Entitic mass] 28.3 pg 26 - 34 pg [place] MCHC (RBC) [Mass/Vol] 32.9 % 32 - 36 % [place] MCV (RBC) [Entitic vol] 85.8 fL 79 - 98 fL [place] Monocytes (Bld) [#/Vol] 0.5 10*3/uL 0 - 0.8 10*3/uL [place] Monocytes/100 WBC (Bld) 6.1 % 2 - 10 % [place] Platelet mean volume (Bld) [Entitic vol] 9.7 fL 7.4 - 10.4 fL [place] Platelets (Bld) [#/Vol] 275 10*3/uL 140 - 440 10*3/uL [place] RBC (Bld) [#/Vol] 4.25 10*6/uL 3.8 - 5.2 10*6/uL [place] WBC (Bld) [#/Vol] 8.8 10*3/uL 3.6 - 10.7 10*3/uL [place] Test Performed by [facility], [address], [place], [place] [address] [place] Comprehensive Metabolic Pane keely 09-15-2018 Albumin [Mass/Vol] 4.1 g/dL 3.5 - 5 g/dL [place] ALP [Catalytic activity/Vol] 170 U/L High 38 - 126 U/L [place] ALT [Catalytic activity/Vol] 191 U/L High 13 - 69 U/L [place] Anion gap [Moles/Vol] 6 mmol/L [place] AST [Catalytic activity/Vol] 216 U/L High 15 - 46 U/L [place] Bilirubin Ql (U) 0.9 mg/dL 0.2 - 1.3 mg/dL [place] Calcium [Mass/Vol] 9.2 mg/dL 8.4 - 10. 4 mg/dL [place] Chloride [Moles/Vol] 100 mmol/L 98 - 10 7 mmol/L [place] CO2 [Moles/Vol] 33 mmol/L High 22 - 30 mmol/L [place] Creatinine [Mass/Vol] 0.83 mg/dL 0.52 - 1.25 mg/dL [place] EGFR IF NonAfrican Samoan >60.0 >60 mL/min [place] Comment on above: Source- MDRD equatio n with creatinine calibration to IDMS(NKDEP) eGFR not recommended for drug dose adjustment GFR/1.73 sq M predicted among blacks MDRD (S/P/Bld) [Vol rate/Area] mL/min/{1.73_m2} >60 mL/min [place] Glucose [Mass/Vol] 111 mg/dL High 70 - 100 mg/dL [place] Interpretation and review of laboratory results Abnormal [place] Potassium [Moles/Vol] 3.4 mmol/L Low 3.5 - 5.1 mmol/L [place] Protein [Mass/Vol] 7.5 g/dL 6.3 - 8.2 g/dL [place] Sodium [Moles/Vol] 139 mmol/L 135 - 145 mmol/L [place] Urea nitrogen [Mass/Vol] 13 mg/dL 7 - 20 mg/dL [place] Test Performed by [facility], [address], [place], [place] [address] [place] Hepatitis Panel, Acuteon HAV IgM IA Qn (S) NOT DETECTED Not-Detect ed [place] Hep B Core Ab, IgM NOT DETECTED Not-Detec jae [place] Hepatitis B Surface Ag NOT DETECTED Not-D etected [place] Hepatitis C Ab NOT DETECTED Not-Detected [place] Comment on above: Patients with DETECT ED Hepatitis C Ab results should have a new specimen submitted for supplemental testing with a Hepatitis C Quantitative RNA assay (viral load), if clinically indicated. Test Performed by [facility], [address] [place], [place] [id number] [place] [address] HAV IgM IA Qn (S) NOT DETECTED Not-Detect ed [place] Hep B Core Ab, IgM NOT DETECTED Not-Detec jae [place] Hepatitis B Surface Ag NOT DETECTED Not-D etected [place] Hepatitis C Ab NOT DETECTED Not-Detected [place] Comment on above: Patients with DETECT ED Hepatitis C Ab results should have a new specimen submitted for supplemental testing with a Hepatitis C Quantitative RNA assay (viral load), if clinically indicated. Test Performed by [facility], [place] [place] [address] [place] PROCALCITONINon 09-15-2018 Procalcitonin <0.10 <0.10 ng/mL [place] Sodium [Moles/Vol] See Below [place] Comment on above: PCT <0.50 = Low risk of severe sepsis and/or septic shock. PCT >2.00 = High risk of severe sepsis and/or septic shock. Test Performed by [facility], [address] [place] [address] [place] Troponinon 09-15-2018 Troponin I.cardiac [Mass/Vol] 0.012 ng/mL 0 - 0.034 ng/mL [place] Comment on above: < 0.034 = negative 0.034 0.120 = indeterminate > 0.120 = positive Test Performed by [facility], [address], [place], [place] [address] [place] Troponin I.cardiac [Mass/Vol] ng/mL 0 - 0.034 ng/mL [place] Comment on above: < 0.034 = negative 0.034 0.120 = indeterminate > 0.120 = positive Test Performed by [facility], [address] [place] [address] [place] Troponin I.cardiac [Mass/Vol] ng/mL 0 - 0.034 ng/mL [place] Comment on above: < 0.034 = negative 0.034 0.120 = indeterminate > 0.120 = positive Test Performed by [facility], [address] [place] [address] [place] US ABDOMEN LIMITEDon 019 Patient Name: PREMA VILLALPANDO ---Ultrasound--- Exam Date/Time 09/15/2018 16:42:00 EDT Exam US Abdomen Limited Ordering Physician DO MORTON LISA Accession Number [id number] CPT4 Codes 64258 () Reason For Exam elevated liver function tests Report Right upper quadrant ultrasound: 09/15/2018. CLINICAL INFORMATION: Elevated liver function tests. Sonographic examination of the right upper quadrant was performed. Comparison: No prior studies for comparison. Liver: Sonographic examination of the liver reveals the echogenicity of the liver parenchyma to be markedly inhomogeneous with marked poor penetration of sound in the deeper portions of the right lobe consistent with marked fatty infiltration. No focal hyper or hypo echoic areas are identified. There is no evidence of intrahepatic biliary dilatation. Gallbladder: Sonographic examination of the gallbladder reveals the gallbladder to be distended. The gallbladder wall is not thickened. There are numerous echogenic foci within the gallbladder which move when the patient is turned and which exhibit acoustic shadowing consistent with gallstones. The common bile duct measures 10mm, which is dilated. Pancreas: Sonographic examination reveals the tail of the pancreas to be obscured by overlying bowel gas.. The echogenicity of the visualized pancreatic parenchyma is homogeneous. No focal hypo echoic areas or peripancreatic fluid collections are seen. Right kidney: Cursory examination of the right kidney reveals no evidence of hydronephrosis. IMPRESSION: Marked fatty infiltration of the liver. Gallstones. Pancreas partially obscured. Report Dictated on --- Final --- Dictating Physician: MD LOPEZ RISA Signed Date and Time: 09/15/2018 6:23 pm Signed by: MD LOPEZ RISA Transcribed Date and Time: 09/15/2018 6:24 [facility] [place] [facility], [facility] Incoming Radiology Results From [facility] - 09/15/2018 6:24 PM EDT Patient Name: PREMA VILLALPANDO ---Ultrasound--- Exam Date/Time 09/15/2018 16:42:00 EDT Exam US Abdomen Limited Ordering Physician DO MORTON LISA Accession Number [id number] CPT4 Codes 43185 () Reason For Exam elevated liver function tests Report Right upper quadrant ultrasound: 09/15/2018. CLINICAL INFORMATION: Elevated liver function tests. Sonographic examination of the right upper quadrant was performed. Comparison: No prior studies for comparison. Liver: Sonographic examination of the liver reveals the echogenicity of the liver parenchyma to be markedly inhomogeneous with marked poor penetration of sound in the deeper portions of the right lobe consistent with marked fatty infiltration. No focal hyper or hypo echoic areas are identified. There is no evidence of intrahepatic biliary dilatation. Gallbladder: Sonographic examination of the gallbladder reveals the gallbladder to be distended. The gallbladder wall is not thickened. There are numerous echogenic foci within the gallbladder which move when the patient is turned and which exhibit acoustic shadowing consistent with gallstones. The common bile duct measures 10mm, which is dilated. Pancreas: Sonographic examination reveals the tail of the pancreas to be obscured by overlying bowel gas.. The echogenicity of the visualized pancreatic parenchyma is homogeneous. No focal hypo echoic areas or peripancreatic fluid collections are seen. Right kidney: Cursory examination of the right kidney reveals no evidence of hydronephrosis. IMPRESSION: Marked fatty infiltration of the liver. Gallstones. Pancreas partially obscured. Report Dictated on --- Final --- Dictating Physician: MD LOPEZ RISA Signed Date and Time: 09/15/2018 6:23 pm Signed by: MD LOPEZ RISA Transcribed Date and Time: 09/15/2018 6:24 [facility] 09-15-2018 Appearance (U) Clear [place], [place] Comment on above: Reference Range: Jonathan ar Bilirubin Urine Negative mg/dL [place] Comment on above: Reference Range: Neg ative Color (U) Light-Yellow [place] Comment on above: Reference Range: Lt. Yellow Glucose, Ur Normal mg/dL [place] Comment on above: Reference Range: Nor mal (<70) Ketones Ql (U) Negative mg/dL [place] Comment on above: Reference Range: Neg ative LEUKOCYTES, UA Negative Xavier/uL [place] Comment on above: Reference Range: Neg ative Nitrite, Urine Negative [place] Comment on above: Reference Range: Neg ative Occult Blood,Urine Negative mg/dL [place] Comment on above: Reference Range: Neg ative pH (U) 6.5 [pH] [place] Protein (U) [Mass/Vol] Negative mg/dL [place], [place] Comment on above: Reference Range: Neg ative Specific [place], Urine 1.006 [place] Urobilinogen, Urine Normal mg/dL [place] Comment on above: Reference Range: Nor mal (0-1) Test Performed by [facility], [address] [place] [address] [place] [address] [place] XR CHEST STANDARD (2 VW)on 0 09-15-2018 [facility], [facility] Incoming Radiology Results From [facility] - 09/15/2018 5:37 PM EDT Patient Name: PREMA VILLALPANDO ---Diagnostic Radiology--- Exam Date/Time 09/15/2018 15:22:39 EDT Exam CR Chest PA/LAT Ordering Physician DO MORTON LISA Accession Number [id number] CPT4 Codes 12968 () Reason For Exam elevated wbc Report Chest PA and lateral 09/15/2018. Clinical Information: Elevated white count. Findings: PA and lateral views of the chest were compared to a prior study 08/13/2018. The trachea is midline. The heart and mediastinal structures are unremarkable. No focal areas of consolidation or volume loss are seen. There are no pleural effusions. The visualized bony structures are intact. There is a large hiatal hernia behind the heart. Impression: No acute process. No significant interval change. Report Dictated on --- Final --- Dictating Physician: MD LOPEZ RISA Signed Date and Time: 09/15/2018 5:36 pm Signed by: MD LOPEZ RISA Transcribed Date and Time: 09/15/2018 5:37 [place] Patient Name: PREMA VILLALPANDO ---Diagnostic Radiology--- Exam Date/Time 09/15/2018 15:22:39 EDT Exam CR Chest PA/LAT Ordering Physician DO MORTON LISA Accession Number [id number] CPT4 Codes 90948 () Reason For Exam elevated wbc Report Chest PA and lateral 09/15/2018. Clinical Information: Elevated white count. Findings: PA and lateral views of the chest were compared to a prior study 08/13/2018. The trachea is midline. The heart and mediastinal structures are unremarkable. No focal areas of consolidation or volume loss are seen. There are no pleural effusions. The visualized bony structures are intact. There is a large hiatal hernia behind the heart. Impression: No acute process. No significant interval change. Report Dictated on --- Final --- Dictating Physician: MD LOPEZ RISA Signed Date and Time: 09/15/2018 5:36 pm Signed by: MD LOPEZ RISA Transcribed Date and Time: 09/15/2018 5:37 [place] Vital Signs Date Time Vital Sign Value Performing Clinician Facility 08-18-2023 11:05-0400 Body height 152.4 cm Toni Bey MD Work Phone: [facility] 08-18-2023 11:05-0400 Body mass index (BMI) [Ratio] 20.15 kg/m2 Toni Bey MD Work Phone: [facility] 08-18-2023 11:05-0400 Body weight 46.81 kg Toin Bey MD Work Phone: [facility] 08-18-2023 11:05-0400 Diastolic blood pressure 56 mm[Hg] Toni Bey MD Work Phone: [facility] 08-18-2023 11:05-0400 Heart rate 62 /min Toni Bey MD Work Phone: [facility] 08-18-2023 11:05-0400 Respiratory rate 16 /min Toni Bey MD Work Phone: [facility] 08-18-2023 11:05-0400 SaO2% (BldA) [Mass fraction] 97 % Toni Bey MD Work Phone: [facility] 08-18-2023 11:05-0400 Systolic blood pressure 106 mm[Hg] Toni Bey MD Work Phone: [facility] 04-04-2023 11:16-0500 Body temperature 97.1 [degF] Dr. Mita Morton Work Phone: [facility] 04-04-2023 11:16-0500 Diastolic blood pressure 56 mm[Hg] Dr. Mita Morton Work Phone: [facility] 04-04-2023 11:16-0500 Heart rate 68 /min Dr. Mita Morton Work Phone: [facility] 04-04-2023 11:16-0500 Respiratory rate 16 /min Dr. Mita Morton Work Phone: [facility] 04-04-2023 11:16-0500 SaO2% (BldA) [Mass fraction] 98 % Dr. Mita Morotn Work Phone: [facility] 04-04-2023 11:16-0500 Systolic blood pressure 134 mm[Hg] Dr. Mita Morton Work Phone: [facility] 04-04-2023 10:15-0500 Body height 152.[address] Mita Morton Work Phone: [facility] 04-04-2023 10:15-0500 Body mass index (BMI) [Ratio] 20.3 kg/m2 Dr. Mita Morton Work Phone: [facility] 04-04-2023 10:15-0500 Body weight 47.[address] Mita Morton Work Phone: [facility] 01-04-2023 12:48-0500 Body temperature 98.4 [degF] Dr. Mita Morton Work Phone: [facility] 01-04-2023 12:48-0500 Diastolic blood pressure 55 mm[Hg] Dr. Mita Morton Work Phone: [facility] 01-04-2023 12:48-0500 Heart rate 81 /min Dr. Mita Morton Work Phone: [facility] 01-04-2023 12:48-0500 Respiratory rate 16 /min Dr. Mita Morton Work Phone: [facility] 01-04-2023 12:48-0500 SaO2% (BldA) [Mass fraction] 98 % Dr. Mita Morton Work Phone: [facility] 01-04-2023 12:48-0500 Systolic blood pressure 115 mm[Hg] Dr. Mita Morton Work Phone: [facility] 01-04-2023 11:46-0500 Body height 152.[address] Mita Morton Work Phone: [facility] 01-04-2023 11:46-0500 Body mass index (BMI) [Ratio] 19.5 kg/m2 Dr. Mita Morton Work Phone: [facility] 01-04-2023 11:46-0500 Body weight 45.[address] Mita Morton Work Phone: [facility] 08-25-2022 10:12-0400 Body height 152.4 cm Toni Bey MD Work Phone: [facility] 08-25-2022 10:12-0400 Body mass index (BMI) [Ratio] 19.65 kg/m2 Toni Bey MD Work Phone: [facility] 08-25-2022 10:12-0400 Body weight 45.63 kg Toni Bey MD Work Phone: [facility] 08-25-2022 10:12-0400 Diastolic blood pressure 60 mm[Hg] Toni Bey MD Work Phone: [facility] 08-25-2022 10:12-0400 Heart rate 68 /min Toni Bey MD Work Phone: [facility] 08-25-2022 10:12-0400 Respiratory rate 16 /min Toni Bey MD Work Phone: [facility] 08-25-2022 10:12-0400 SaO2% (BldA) [Mass fraction] 95 % Toni Bey MD Work Phone: [facility] 08-25-2022 10:12-0400 Systolic blood pressure 110 mm[Hg] Toni Bey MD Work Phone: [facility] 06-16-2022 19:58-0400 Body temperature 97.39 [degF] Eric Cintron MD Work Phone: [facility] 06-16-2022 19:58-0400 Diastolic blood pressure 61 mm[Hg] Eric Cintron MD Work Phone: [facility] 06-16-2022 19:58-0400 Heart rate 77 /min Eric Cintron MD Work Phone: [facility] 06-16-2022 19:58-0400 Respiratory rate 18 /min Eric Cintron MD Work Phone: [facility] 06-16-2022 19:58-0400 SaO2% (BldA) [Mass fraction] 97 % Eric Cintron MD Work Phone: [facility] 06-16-2022 19:58-0400 Systolic blood pressure 123 mm[Hg] Eric Cintron MD Work Phone: [facility] 06-01-2022 23:41-0400 Diastolic blood pressure 59 mm[Hg] Dr. Mita Morton Work Phone: [facility] 06-01-2022 23:41-0400 Heart rate 14 /min Dr. Mita Morton Work Phone: [facility] 06-01-2022 23:41-0400 Respiratory rate 68 /min Dr. Mita Morton Work Phone: [facility] 06-01-2022 23:41-0400 Systolic blood pressure 124 mm[Hg] Dr. Mita Morton Work Phone: [facility] 06-01-2022 23:07-0400 SaO2% (BldA) [Mass fraction] 96 % Dr. Mita Morton Work Phone: [facility] 06-01-2022 20:32-0400 Body mass index (BMI) [Ratio] 19.4 kg/m2 Dr. Mita Morton Work Phone: [facility] 06-01-2022 20:32-0400 Body weight 45.[address] Mita Morton Work Phone: [facility] 06-01-2022 19:08-0400 Body height 152.[address] Mita Morton Work Phone: [facility] 06-01-2022 19:08-0400 Body temperature 98 [degF] Dr. Mita Morton Work Phone: [facility] 05-13-2022 14:19-0400 Body temperature 98.5 [degF] Dr. Mita Morton Work Phone: [facility] 05-13-2022 14:19-0400 Diastolic blood pressure 57 mm[Hg] Dr. Mita Morton Work Phone: [facility] 05-13-2022 14:19-0400 Heart rate 64 /min Dr. Mita Morton Work Phone: [facility] 05-13-2022 14:19-0400 Respiratory rate 16 /min Dr. Mita Morton Work Phone: [facility] 05-13-2022 14:19-0400 SaO2% (BldA) [Mass fraction] 98 % Dr. Mita Morton Work Phone: [facility] 05-13-2022 14:19-0400 Systolic blood pressure 120 mm[Hg] Dr. Mita Morton Work Phone: [facility] 05-12-2022 14:31-0400 Body height 149.[address] Mita Morton Work Phone: [facility] 05-12-2022 14:31-0400 Body weight 44.[address] Mita Morton Work Phone: [facility] 05-12-2022 12:18-0400 Body mass index (BMI) [Ratio] 19.7 kg/m2 Dr. Mita Morton Work Phone: [facility] 02-23-2022 08:20-0500 Diastolic blood pressure 60 mm[Hg] Lalitha Powell MD Work Phone: [facility] 02-23-2022 08:20-0500 Heart rate 84 /min Llaitha Powell MD Work Phone: [facility] 02-23-2022 08:20-0500 Respiratory rate 18 /min Lalitha Powell MD Work Phone: [facility] 02-23-2022 08:20-0500 SaO2% (BldA) [Mass fraction] 100 % Lalitha Powell MD Work Phone: [facility] 02-23-2022 08:20-0500 Systolic blood pressure 113 mm[Hg] Lalitha Powell MD Work Phone: [facility] 02-23-2022 07:31-0500 Body height 152.4 cm Lalitha Powell MD Work Phone: [facility] 02-23-2022 07:31-0500 Body mass index (BMI) [Ratio] 18.94 kg/m2 Lalitha Powell MD Work Phone: [facility] 02-23-2022 07:31-0500 Body temperature 97.3 [degF] Lalitha Powell MD Work Phone: [facility] 02-23-2022 07:31-0500 Body weight 44 kg Lalitha Powell MD Work Phone: [facility] 06-04-2020 11:08-0400 Diastolic blood pressure 50 mm[Hg] Betsy Cundra PA-C Work Phone: [facility] Work Phone: 06-04-2020 11:08-0400 Heart rate 73 /min Betsy Cundra PA-C Work Phone: [facility] Work Phone: 06-04-2020 11:08-0400 Respiratory rate 15 /min Betsy Cundra PA-C Work Phone: [facility] Work Phone: 06-04-2020 11:08-0400 SaO2% (BldA) [Mass fraction] 100 % Betsy Cundra PA-C Work Phone: [facility] Work Phone: 06-04-2020 11:08-0400 Systolic blood pressure 103 mm[Hg] Betsy Cundra PA-C Work Phone: [facility] Work Phone: 11-09-2019 11:21-0400 BP Diastolic 62 mm[Hg] [facility] [place] 11-09-2019 11:21-0400 BP Systolic 121 mm[Hg] [facility] [place] 11-09-2019 11:21-0400 Pulse (Heart Rate) 81 /min Zoe [employer] [facility], [place] 11-09-2019 11:21-0400 Pulse Oximetry 100 % [facility] [place] 11-09-2019 11:21-0400 Respiratory Rate 16 /min [facility] [employer] [facility] [place] 03-07-2019 12:11-0500 Diastolic blood pressure 65 mm[Hg] Lisa Smiley MD Work Phone: [facility] Work Phone: 03-07-2019 12:11-0500 Heart rate 77 /min Lisa Smiley MD Work Phone: [facility] Work Phone: 03-07-2019 12:11-0500 Respiratory rate 18 /min Lisa Smiley MD Work Phone: [facility] Work Phone: 03-07-2019 12:11-0500 SaO2% (BldA) [Mass fraction] 100 % Lisa Smiley MD Work Phone: [facility] Work Phone: 03-07-2019 12:11-0500 Systolic blood pressure 106 mm[Hg] Lisa Smiley MD Work Phone: [facility] Work Phone: 03-07-2019 10:46-0500 Body height 152.4 cm Lisa Smiley MD Work Phone: [facility] Work Phone: 03-07-2019 10:46-0500 Body mass index (BMI) [Ratio] 21.87 kg/m2 Lisa Smiley MD Work Phone: [facility] Work Phone: 03-07-2019 10:46-0500 Body temperature 99.81 [degF] Lisa Smiley MD Work Phone: [facility] Work Phone: 03-07-2019 10:46-0500 Body weight 50.8 kg Lisa Smiley MD Work Phone: [facility] Work Phone: 02-18-2019 06:20-0500 Body mass index (BMI) [Ratio] 22.46 kg/m2 Sonny Montague MD Work Phone: [facility] Work Phone: 02-18-2019 06:20-0500 Body weight 52.16 kg Sonny Montague MD Work Phone: [facility] Work Phone: 02-18-2019 05:07-0500 Body temperature 98.29 [degF] Sonyn Montague MD Work Phone: [facility] Work Phone: 02-18-2019 05:07-0500 Diastolic blood pressure 77 mm[Hg] Sonny Montague MD Work Phone: [facility] Work Phone: 02-18-2019 05:07-0500 Heart rate 85 /min Sonny Montague MD Work Phone: [facility] Work Phone: 02-18-2019 05:07-0500 Respiratory rate 18 /min Sonny Montague MD Work Phone: [facility] Work Phone: 02-18-2019 05:07-0500 SaO2% (BldA) [Mass fraction] 97 % Sonny Montague MD Work Phone: [facility] Work Phone: 02-18-2019 05:07-0500 Systolic blood pressure 151 mm[Hg] Sonny Montague MD Work Phone: [facility] Work Phone: 02-15-2019 06:27-0500 Body height 152.4 cm Sonny Montague MD Work Phone: [facility] Work Phone: 09-21-2018 14:16-0400 Body Temperature 97.59 [degF] [facility] [place] 09-21-2018 14:16-0400 BP Diastolic 74 mm[Hg] [facility] , [place] 09-21-2018 14:16-0400 BP Systolic 141 mm[Hg] [facility] , [place] 09-21-2018 14:16-0400 Pulse (Heart Rate) 74 /min [facility], [place] 09-21-2018 14:16-0400 Pulse Oximetry 98 % [facility] , [place] 09-21-2018 14:16-0400 Respiratory Rate 16 /min [facility] [place] 09-17-2018 16:01-0400 Height 160 cm Mita Morton [facility] , [place] 09-15-2018 13:00-0400 BMI (Body Mass Index) 21.72 kg/m2 Mita Moses [facility], [place] 09-15-2018 13:00-0400 Body weight 55.61 kg Mita Morton [facility] , [place] Encounters Encounter Date Encounter Type Care Provider Facility Start: 08-09-2024 ambulatory Mita M Esterle Facility :[facility] Start: 06-12-2024 Registered Referred Anabel STEPHENSON [facility] Start: 06-12-2024 End: 06-12-2024 ambulatory Mita M Praveen Facility:[facility] Start: 05-09-2024 End: 05-09-[address] Mita Morton DO Work Phone: [facility] Work Phone: Start: 05-09-2024 End: 05-09-[address] Anabel Duvall MD -[facility] Work Phone: Start: 04-10-2024 End: 04-10-2024 ambulatory Mita M Praveen Facility:[facility] Start: 04-10-2024 End: 04-10-2024 Patient encounter procedure Fallon Mcclendon SAILORChelsey -[facility] Work Phone: Start: 03-21-2024 End: 03-21-2024 ambulatory Mita Janie Morton Facility:[facility] Start: 03-21-2024 End: 03-21-[address] Anabel Duvall MD -[facility] Work Phone: Start: 03-16-2024 ambulatory Mita M Esterle Facility :[facility] Start: 03-16-2024 Registered Referred Anabel Cabral [facility] Start: 02-10-2024 End: 02-10-2024 ambulatory López Antonio Facility:[facility] Start: 01-25-2024 End: 01-25-2024 ambulatory Anabel Duvall Facility:[facility] Start: 12-20-2023 End: 12-20-2023 Subsequent hospital visit by physician Mita Morton DO Work Phone: [facility] Comment on above: Other specified dise ases of liver Start: 12-20-2023 End: 12-20-[address] [facility] Start: 12-16-2023 End: 12-17-2023 ambulatory Mita M Esterle Facility:[facility] Start: 12-15-2023 End: 12-15-2023 ambulatory [facility] Start: 12-09-2023 End: 12-09-2023 [facility]ulatory [facility] Start: 12-03-2023 End: 12-03-2023 ambulatory Mita Janie Morton Facility:[facility] Start: 12-01-2023 End: 03-01-2024 Transcribe Orders Mita M Esterle DO Work Phone: [facility] Comment on above: Other specified dise ases of liver (Primary Dx) Start: 11-22-2023 End: 11-22-2023 ambulatory Erich GIRON Facility:[facility] Start: 11-22-2023 End: 11-22-2023 ambulatory Mita Janie Morton Facility:[facility] Start: 11-11-2023 End: 11-11-2023 [facility] Start: 11-11-2023 End: 11-11-2023 Subsequent hospital visit by physician Mita Morton DO [facility] Comment on above: Other specified abno rmal findings of blood chemistry Start: 10-26-2023 End: 01-25-2024 Transcribe Orders Mita M Esterle DO Work Phone: [facility] Comment on above: Other specified abno rmal findings of blood chemistry (Primary Dx) Start: 08-18-2023 End: 08-18-2023 Office outpatient visit 25 minutes Toni Bey MD Work Phone: [facility] [employer] [facility] Comment on above: Coronary artery dise ase involving [place] coronary artery of [place] heart without angina pectoris (Primary Dx); Persistent atrial fibrillation (HCC); Mixed hyperlipidemia; Vascular dementia, unspecified dementia severity, unspecified whether behavioral, psychotic, or mood disturbance or anxiety (HCC) Start: 08-18-2023 End: 08-18-2023 ambulatory TONI [facility] Start: 07-23-2023 End: 07-23-2023 Telephone encounter Toni Bey MD Work Phone: [facility] Cardiology Comment on above: Cardiac Clearance Start: 07-20-2023 ambulatory Sharmila Connell RN [facility] Clinical Communication Start: 07-20-2023 Patient encounter procedure Sharmila Connell RN [facility] Clinical Communication Start: 05-11-2023 End: 08-10-2023 Transcribe Orders Brittany Mitchell MANAGEMENT ENGINE[employer] Work Phone: [facility] Comment on above: Dorsalgia, unspecifi ed (Primary Dx); Unspecified urinary incontinence Start: 04-10-2023 Refill Yeny benjamin MANAGEMENT ENGINEER - [employer] Work Phone: [facility] Cardiology Start: 04-04-2023 End: 04-04-2023 Emergency department patient visit Dr. Mita Morton Work Phone: [facility]Emergency Department Work Phone: Start: 04-04-2023 End: 04-04-2023 Patient encounter procedure Billie Reid MANAGEMENT ENGINEER.[employer] Work Phone: [facility] Comment on above: Injury of head, init ial encounter (Primary Dx) Start: 03-04-2023 End: 03-04-[address] Mita Morton Work Phone: [facility] Gastroenterology Work Phone: Start: 01-04-2023 Non-patient / Non-visit Dr. Joana Morton Work Phone: [facility] Start: 01-04-2023 End: 01-04-2023 Admission to same day surgery center Dr. Mita Morton Work Phone: [facility]-Endoscopy Work Phone: Start: 01-04-2023 End: 01-04-[address] Mita Morton Work Phone: [facility] Work Phone: Start: 12-09-2022 Telephone encounter Toni sánchez MD Work Phone: [facility] Cardiology Comment on above: Cardiac Clearance Start: 10-28-2022 End: 10-28-2022 Subsequent hospital visit by physician Mita Morton DO Work Phone: [facility] Comment on above: Other specified abno rmal findings of blood chemistry Start: 10-23-2022 Transcribe Orders Mita Myers Work Phone: [facility] Comment on above: Other specified abno rmal findings of blood chemistry (Primary Dx) Start: 10-21-2022 End: 10-21-[address] Mita Morton Work Phone: [facility] Work Phone: Start: 10-21-2022 End: 10-21-[address] Mita Morton Work Phone: [facility]-Physical Therapy Work Phone: Start: 10-10-2022 Refill Yeny Waldron ak MANAGEMENT ENGINEER - [employer] Work Phone: [facility] Cardiology Start: 09-24-2022 End: 09-24-2022 ambulatory Cheryl Lopez PA-C Work Phone: [facility] Laboratory Comment on above: Arrived Hyperlipidemia, unsp ecified (Primary Dx) Start: 09-14-2022 Transcribe Orders Toni eBy MD Work Phone: [facility] Laboratory Comment on above: Other persistent atr ial fibrillation (HCC) (Primary Dx) Start: 08-25-2022 End: 08-25-2022 Office outpatient visit 25 minutes Toni Bey MD Work Phone: [facility] Cardiology Comment on above: Coronary artery dise 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 Mita carlos Work Phone: [facility] Start: 06-30-2022 End: 06-30-[address] Mita Morton Work Phone: [facility] Work Phone: Start: 06-26-[address] Mita carlos Work Phone: [facility] Start: 06-25-[address] Mita carlos Work Phone: [facility] Start: 06-24-2022 End: 06-24-[address] Mita Morton Work Phone: [facility] Work Phone: Start: 06-13-2022 End: 06-16-2022 Evaluation and management of inpatient Eric Cintron MD Work Phone: [facility] 2E TELEMETRY Comment on above: Anemia (Primary Dx); Hyponatremia; Hepatitis Start: 06-13-2022 End: 06-13-2022 Subsequent hospital visit by physician Mita Morton DO Work Phone: [facility] Vascular Lab Comment on above: Other specified symp toms and signs involving the circulatory and respiratory systems Start: 06-01-2022 End: 06-02-2022 Emergency department patient visit Dr. Mita Morton Work Phone: [facility]-Emergency Department Start: 05-27-2022 Transcribe Orders Mita Myers Work Phone: [facility] Central Scheduling Comment on above: Other specified symp toms and signs involving the circulatory and respiratory systems (Primary Dx) Start: 05-13-2022 Non-patient / Non-visit Dr. Joana oMrton Work Phone: [facility] Start: 05-13-2022 End: 05-13-2022 Non-patient / Non-visit Dr. Mita Morton Work Phone: [facility] Inpatient Physicians Start: 05-12-2022 Non-patient / Non-visit Dr. Joana Morton Work Phone: [facility] Start: 05-12-2022 Non-patient / Non-visit Dr. Joana Morton Work Phone: [facility] Inpatient Physicians Start: 05-12-2022 End: 05-13-2022 Evaluation and management of inpatient Dr. Mita Motron Work Phone: [facility]-Medical Surgical 3 Start: 05-12-2022 End: 05-13-[address] 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) Start: 05-09-2021 End: 05-09-2021 Discharged Recurring [facility]-Physical Therapy Start: 02-10-2021 End: 02-10-2021 Discharged Recurring [facility]-Physical Therapy Start: 08-20-2020 End: 08-20-2020 Subsequent hospital visit by physician Mita Morton DO Work Phone: [facility] Comment on above: Abnormal results of liver function studies Start: 06-04-2020 End: 06-04-2020 Subsequent hospital visit by physician Betsy Reeves PA-C Work Phone: [facility] Comment on above: Left thyroid nodule Start: 05-21-2020 End: 05-21-2020 Subsequent hospital visit by physician Zoe Wyatt Work Phone: [facility] [place] Comment on above: Thyroid nodule Start: 02-07-2020 End: 02-07-2020 Subsequent hospital visit by physician Mita Morton Work Phone: [facility] Start: 11-09-2019 End: 11-09-2019 Subsequent hospital visit by physician Zoe Wyatt Work Phone: [facility] Comment on above: Thyroid nodule Start: 10-18-2019 End: 10-18-2019 Subsequent hospital visit by physician Mita Morton Work Phone: [facility] Comment on above: Nontoxic single thyr oid nodule Start: 08-21-2019 End: 08-21-2019 Subsequent hospital visit by physician Yeny Huntley Work Phone: [facility] Comment on above: Coronary artery dise ase involving [place] coronary artery of [place] heart without angina pectoris; Dyslipidemia Start: 04-04-2019 End: 04-04-2019 Subsequent hospital visit by physician Mita Morton Work Phone: [facility] [place] [facility] Comment on above: Arrived Start: 03-31-2019 End: 03-31-2019 Subsequent hospital visit by physician Mita Morton Work Phone: [facility] Start: 03-07-2019 End: 03-07-2019 Subsequent hospital visit by physician Lias Smiley MD Work Phone: [facility] Comment on above: Arrived Start: 02-11-2019 End: 02-18-2019 Evaluation and management of inpatient Sonny Montague MD Work Phone: [facility] MED SURG Comment on above: Calculus of bile sanam t without cholecystitis with obstruction (Primary Dx); Dilation of biliary tract Start: 09-15-2018 End: 09-21-2018 Evaluation and management of inpatient Mita Lima Evettegonzalo Work Phone: [facility] 4S TELEMETRY Procedures Date Procedure Procedure Detail Performing Clinician Start: 03-16-2024 Measurement of renal function Dr. Mita carlos DO Work Phone: Comment on above: GFR Calc Start: 11-11-2023 Us abdominal real time w/image limited Mita Alasgonzalo DO Work Phone: Start: 08-18-2023 Ecg routine ecg w/least 12 lds w/i&r Toni Bey MD Work Phone: Start: 01-04-[address] Mita gallaghere Work Phone: Start: 09-24-2022 Comprehensive metabolic panel Cheryl Spears ros PA-C Work Phone: Start: 09-24-2022 Lipid panel Cheryl Lopez PA-C Work Phone: Start: 09-24-2022 Lipid 1996 panel - Serum or Plasma Sharmila Connell RN Start: 09-14-2022 Basic metabolic panel calcium total Toni Bey MD Work Phone: Start: 08-25-2022 Ecg routine ecg w/least 12 lds w/i&r Toni Bey MD Work Phone: Start: 06-16-2022 SARS-CoV-2 (COVID-19) Ag [Presence] in Respiratory specimen by Rapid immunoassay Mita Alasgonzalo DO Work Phone: Start: 06-16-2022 Comprehensive metabolic panel Mita Lima Est erle DO Work Phone: Start: 06-15-2022 Us abdominal real time w/image limited Mita Morton DO Work Phone: Start: 06-15-2022 Comprehensive metabolic panel Mita Lima Est erle DO Work Phone: Start: 06-14-2022 Comprehensive metabolic panel Mita Lima Est erle DO Work Phone: Start: 06-13-2022 Bacteria identified in Blood by Culture Eric Cintron MD Work Phone: Start: 06-13-2022 POCT GLUCOSE METER Eric Cintron MD Work Phone: Start: 06-13-2022 Radiologic examination pelvis 1/2 views Eric Cintron MD Work Phone: Start: 06-13-2022 Ct head/brain w/o contrast material Eric Cintron MD Work Phone: Start: 06-13-2022 Bacteria identified in Blood by Culture Eric Cintron MD Work Phone: Start: 06-13-2022 Comprehensive metabolic panel Eric patel MD Work Phone: Start: 06-13-2022 End: 06-13-2022 Drug test def 1-7 classes Eric Lou Work Phone: Start: 06-13-2022 Thyrotropin [Units/volume] in Serum or Plasma Eric Cintron MD Work Phone: Start: 06-13-2022 Ecg routine ecg w/least 12 lds trcg only w/o i&r Eric Cintron MD Work Phone: Start: 06-13-2022 Duplex scan extracranial art compl bi study Mita Morton DO Work Phone: Start: 06-01-2022 Plain chest X-ray Dr. Mita Morton Work Phone: Start: 06-01-2022 CT of head without contrast Dr. Mita morales Work Phone: Start: 05-13-[address] Mita cárdenas Work Phone: Start: 05-12-2022 Plain chest X-ray Dr. Mita Morton Work Phone: Start: 02-23-2022 Glucose quantitative blood xcpt reagent strip Lalitha Powell MD Work Phone: Start: 11-08-2020 Lipid 1996 panel - Serum or Plasma Lalitha nguyen MD Work Phone: Start: 08-20-2020 Us abdominal real time w/image limited Mita M Praveen DO Work Phone: Start: 06-04-2020 Us guidance needle placement img s&i Betsy Reeves PA-C Work Phone: Start: 02-07-2020 Radiologic exam knee complete 4/more views Mita Morton Work Phone: Start: 11-09-2019 Cytopath fl nongyn, sm/fltr Zoe Wyatt Work Phone: Start: 11-09-2019 Fine needle aspiration bx w/us gdn 1st lesion Zoe Wyatt Work Phone: Start: 10-18-2019 Us soft tissue head & neck real time imge docm Mita M Praveen Work Phone: Start: 08-21-2019 Basic metabolic panel calcium total Yeny Mirna Yuko Work Phone: Start: 08-21-2019 Blood count complete automated Yeny J Yuko Work Phone: Start: 08-21-2019 Hepatic function panel Yeny J Yuko Work Phone: Start: 04-04-2019 CT ABDOMEN PELVIS W CONTRAST Mita Lima Sandi rle Work Phone: Start: 04-04-2019 Ct thorax w/contrast material Mita Lima Est erle Work Phone: Start: 03-31-2019 Creatinine blood Mita Morton Work Phone: Start: 03-07-2019 [facility] ENDOSCOPY REPORT 3m Scanning Start: 02-18-2019 Assay of lipase Tj Muniz MD Work Phone: Start: 02-17-2019 Basic metabolic panel calcium total Tj Muniz MD Work Phone: Start: 02-17-2019 Hepatic function panel Tj Muniz MD Work Phone: Start: 02-16-2019 Assay of lipase Tj Muniz MD Work Phone: Start: 02-16-2019 Basic metabolic panel calcium total Sharmila Lr MD Work Phone: Start: 02-16-2019 Hepatic function panel Sharmila Lr MD Work Phone: Start: 02-16-2019 Manual Differential panel - Blood Lisa Smiley MD Work Phone: Start: 02-15-2019 OPERATIVE REPORT 3m Scanning Start: 02-15-2019 [facility] ENDOSCOPY REPORT 3m Scanning Start: 02-15-2019 Antibody screen Sonny Montague MD Work Phone: Comment on above: Test Performed by [facility], [address] [place] [id number] Start: 02-15-2019 Cmbn ndsc cathj biliary&pncrtc ductal sys rs&i Lisa Smiley MD Work Phone: Start: 02-15-2019 Blood typing serologic abo Mark sol MD Work Phone: Start: 02-15-2019 Basic metabolic panel calcium total Mark Chen MD Work Phone: Start: 02-15-2019 Hepatic function panel Sharmila Lr MD Work Phone: Start: 02-14-2019 Potassium serum plasma/whole blood Jewel Muniz MD Work Phone: Start: 02-13-2019 Assay of magnesium Gem A Tekoa DO Work Phone: Start: 02-13-2019 BASIC METABOLIC PANEL W/ REFLEX TO MG FOR LOW K Gem A Tekoa DO Work Phone: Start: 02-13-2019 Hepatic function panel Gem A Loomi s DO Work Phone: Start: 02-12-2019 ADD ON LAB TEST Gem A Tekoa DO Work Phone: Start: 02-12-2019 Bilirubin direct Sonny Peres MD Work Phone: Start: 02-11-2019 Mri abdomen w/o contrast material Elisab eth A Tekoa DO Work Phone: Start: 02-11-2019 End: 02-11-2019 ADD ON LAB TEST Sonny Montague MD Work Phone: Start: 02-11-2019 PROTIME/INR & PTT Gem A Beverley DO Work Phone: Start: 02-11-2019 Us abdominal real time w/image limited Yusuf Andino MD Work Phone: Start: 02-11-2019 Basic metabolic panel calcium total Sahil Ribeiro PA Work Phone: Start: 02-11-2019 Hepatic function panel Sahil Soni A Work Phone: Start: 02-11-2019 Ecg routine ecg w/least 12 lds w/i&r Sahil Ribeiro PA Work Phone: Start: 09-21-2018 Colonoscopy 3m Scanning Start: 09-21-2018 Comprehensive metabolic panel Mita morales Work Phone: Start: 09-20-2018 Blood count complete auto&auto difrntl wbc Mark Amin Work Phone: Start: 09-20-2018 Comprehensive metabolic panel Kiko harden Work Phone: Start: 09-20-2018 Lactate dehydrogenase ldh Mark Amin Work Phone: Start: 09-19-2018 Us abdominal real time w/image limited Seema Schwarz Work Phone: Start: 09-19-2018 Assay of lipase Seema Schwarz Work Phone: Start: 09-19-2018 Blood count complete auto&auto difrntl wbc Seema Schwarz Work Phone: Start: 09-19-2018 Comprehensive metabolic panel Seema taylor Work Phone: Start: 09-18-2018 Assay of lipase Seema Schwarz Work Phone: Start: 09-18-2018 Blood count complete auto&auto difrntl wbc Seema Schwarz Work Phone: Start: 09-18-2018 Comprehensive metabolic panel Seema taylor Work Phone: Start: 09-17-2018 Hepatobiliary syst imaging including gallbladder Kiko Lau Work Phone: Start: 09-17-2018 Assay of lipase Dimitris Cavazos Work Phone: Start: 09-17-2018 Comprehensive metabolic panel Dimitris jangdianna Cavazos Work Phone: Start: 09-16-2018 Mri abdomen w/o contrast material Kiko Lau Work Phone: Start: 09-16-2018 Assay of magnesium Mita M Esterle Work Phone: Start: 09-16-2018 Assay of troponin quantitative Mita M Es terle Work Phone: Start: 09-16-2018 Blood count complete auto&auto difrntl wbc Mita M Esterle Work Phone: Start: 09-16-2018 Blood count complete automated Mita M Es terle Work Phone: Start: 09-15-2018 Assay of troponin quantitative Mita M Es terle Work Phone: Start: 09-15-2018 Culture bacterial quanttative colony count urine Mita M Esterle Work Phone: Start: 09-15-2018 Urnls dip stick/tablet rgnt auto w/o microscopy Mita M Esterle Work Phone: Start: 09-15-2018 Acute hepatitis panel Siobhanmarti Wynn Work Phone: Start: 09-15-2018 Culture bacterial blood aerobic w/id isolates Mita M Esterle Work Phone: Start: 09-15-2018 Us abdominal real time w/image limited Mita M Esterle Work Phone: Start: 09-15-2018 Assay of troponin quantitative Mita M Es terle Work Phone: Start: 09-15-2018 Culture bacterial blood aerobic w/id isolates Mita M Esterle Work Phone: Start: 09-15-2018 Radiologic exam chest 2 views Mita morales Work Phone: Start: 09-15-2018 Acute hepatitis panel Mita Morton Work Phone: Start: 09-15-2018 Assay of troponin quantitative Mita capone Work Phone: Start: 09-15-2018 Blood count complete auto&auto difrntl wbc Mita Janie Praveen Work Phone: Start: 09-15-2018 Comprehensive metabolic panel Mita morales Work Phone: Start: 09-15-2018 Procalcitonin (pct) Mita Janie Alasgonzalo Work Phone: History of placement of stent for coronary artery disease H/O heart artery stent Sonny Montague MD Work Phone: History of placement of stent for coronary artery disease H/O heart artery stent Sonny Montague MD Work Phone: SARS-CoV-2 & FLU Antigen (Rapid) Dr. Mita Morton Work Phone: Plan of Treatment Date Care Activity Detail Author Start: 12-01-2029 DTaP/Tdap/Td vaccine (2 - Td or Tdap) DTaP/Tdap/Td vaccine (2 - Td or Tdap) [facility] Start: 12-01-2029 DTaP/Tdap/Td vaccine (2 - Td) DTaP/Tdap/Td vaccine (2 - Td) [facility] Work Phone: Start: 12-01-2029 DTaP/Tdap/Td Vaccines (2 - Td or Tdap) DTaP/Tdap/Td Vaccines (2 - Td or Tdap) [facility] Start: 09-25-2027 Lipid panel Lipid Panel [facility] Start: 09-24-2025 Diabetes Screening Diabetes Screening [facility] Start: 08-18-2024 End: 08-18-2024 Patient encounter procedure [facility] Start: 10-10-2023 COVID-19 Vaccine () COVID-19 Vaccine () [facility] Start: 10-10-2023 COVID-19 Vaccine () COVID-19 Vaccine () [facility] Start: 10-10-2023 Influenza vaccination [facility] Start: 09-25-2023 Creatinine measurement Creatinine Level [facility] Start: 09-25-2023 Diabetes: Estimated Glomerular Filtration Rate for Kidney Health Diabetes: Estimated Glomerular Filtration Rate for Kidney Health [facility] Start: 09-25-2023 Potassium measurement Potassium Level [facility] Start: 08-18-2023 End: 08-18-2023 Patient encounter procedure 08/18/2023 11:00 AM EDT Office Visit [facility] [address] [place] [id number] Toni Bey MD [address] [address] [place] [address] [facility] Start: 08-06-2023 Lipid screen Lipid screen [place], [place] Start: 06-04-2023 Medicare Annual Wellness (AWV) Medicare Annual Wellness (AWV) [facility] Start: 04-04-2023 [facility] Start: 02-08-2023 Advance Directive Discussion Advance Directive Discussion [facility] Start: 02-08-2023 Depression Assessment Depression Assessment [facility] Start: 01-04-2023 Egd insert guide wire dilator passage esophagus EGD GUIDE WIRE INSERTION [facility] Start: 01-04-2023 Egd transoral biopsy single/multiple EGD BIOPSY SINGLE/MULTIPLE [facility] Start: 01-04-2023 Patient discharge [facility] Start: 10-09-2022 COVID-19 Vaccine ( season) COVID-19 Vaccine () [facility] Start: 10-09-2022 Influenza vaccination Influenza Vaccine (#1) [facility] Start: 08-25-2022 End: 08-25-2022 Patient encounter procedure 08/25/2022 10:00 AM EDT Office Visit [facility] [address] [place] [phone] Toni Bey MD [address] [facility] [address] [place] [address] [facility] Start: 06-01-2022 [facility] Start: 05-14-2022 Blood chemistry [facility] Start: 05-13-2022 Patient discharge [facility] Start: 05-12-2022 Catheterization of vein [facility] Start: 05-12-2022 Care regimes management [facility] Start: 05-12-2022 Notification of physician [facility] Start: 05-12-2022 [facility] Start: 05-12-2022 Egd insert guide wire dilator passage esophagus EGD GUIDE WIRE INSERTION [facility] Start: 05-12-2022 Egd transoral biopsy single/multiple EGD BIOPSY SINGLE/MULTIPLE [facility] Start: 05-12-2022 Application of intermittent pneumatic compression device [facility] Start: 05-12-[address] [facility] Start: 05-12-2022 Assessment of risk of venous thromboembolism [facility] Start: 05-12-2022 Insertion of catheter into peripheral vein [facility] Start: 05-12-2022 Providing care according to standard [facility] Start: 05-12-2022 Referral to gastroenterology service [facility] Start: 05-12-2022 [facility] Start: 05-12-2022 Following clinical pathway protocol [facility] Start: 05-12-2022 Admission procedure [facility] Start: 05-12-2022 Patient referral to dietitian [facility] Start: 03-13-2022 End: 03-13-2022 Patient encounter procedure 03/13/2022 Office Visit Gastroenterology Gin Finn, MANAGEMENT ENGINEER - FLY FISHING GUIDE [address] [place] [address] [facility] Start: 02-26-2022 Hemoglobin A1c measurement Diabetes: Hemoglobin A1C [facility] Start: 02-23-2022 End: 02-23-2022 Esophagogastroduodenoscopy transoral diagnostic EGD DIAGNOSTIC Dysphagia 02/23/2022 7:42 AM EST [facility] Start: 12-30-2021 Creatinine measurement Creatinine monitoring [facility] Start: 12-30-2021 Potassium monitoring Potassium monitoring [facility] Start: 11-08-2021 Lipid panel [facility] Start: 01-10-2021 COVID-19 Vaccine (4 - Booster for Pfizer series) COVID-19 Vaccine (4 - Booster for Pfizer series) [facility] Start: 01-10-2021 COVID-19 Vaccine (4 - Pfizer series) COVID-19 Vaccine (4 - Pfizer series) [facility] Start: 10-17-2020 Statin Therapy Statin Therapy [place], [place] Start: 10-09-2020 Influenza vaccination Flu vaccine (#1) [facility] Work Phone: Start: 08-20-2020 Creatinine measurement Creatinine monitoring [facility], [place] Start: 08-20-2020 Potassium monitoring Potassium monitoring [place], [place] Start: 06-10-2020 End: 06-10-2020 Patient encounter procedure 06/10/2020 Office Visit General Surgery Kiko Bowie MD [address] [place], [place] [id number] Gen Surg - [facility] Start: 05-27-2020 End: 05-27-2020 Office Visit 05/27/2020 Office Visit General Surgery Kiko Bowie MD [address] [place], [place] [id number] Gen Surg - [facility] Start: 03-31-2020 Creatinine measurement Creatinine monitoring [facility], [place] Start: 03-31-2020 Creatinine monitoring Creatinine monitoring [place], [place] Start: 02-18-2020 Creatinine monitoring Creatinine monitoring [facility] Work Phone: Start: 02-18-2020 Potassium monitoring Potassium monitoring [facility] Work Phone: Start: 11-25-2019 Pneumococcal Vaccine: 50+ Years (2 of 2 - PCV) Pneumococcal Vaccine: 50+ Years (2 of 2 - PCV) [facility] Start: 11-25-2019 Pneumococcal Vaccine: 65+ (2 of 2 - PCV) Pneumococcal Vaccine: 65+ (2 of 2 - PCV) [facility] Start: 11-25-2019 Pneumococcal Vaccine: 65+ Years (2 - PCV) Pneumococcal Vaccine: 65+ Years (2 - PCV) [facility] Start: 11-25-2019 Pneumococcal Vaccine: 65+ Years (2 of 2 - PCV) Pneumococcal Vaccine: 65+ Years (2 of 2 - PCV) [facility] Start: 10-10-2019 Influenza vaccination Flu vaccine (#1) [place] Start: 09-22-2019 Creatinine monitoring Creatinine monitoring [place], [place] Start: 09-22-2019 Potassium monitoring Potassium monitoring [place] Start: 08-06-2019 Lipid panel Lipid screen [place] Start: 08-06-2019 Lipid screen Lipid screen [facility] [employer] Phone: Start: 05-25-2019 End: 05-25-2019 Office Visit 05/25/2019 Office Visit Cardiology Toni Bey MD [address] [facility] [address] [place] [address] [phone] [facility] Start: 04-04-2019 Hospital Encounter 04/04/2019 Hospital Encounter Radiology Mita Morton, DO [address] [place] [address] [phone] [facility] [place] Start: 10-09-2018 Influenza vaccination Flu vaccine (#1) [place] Start: 10-04-2018 End: 10-04-2018 Office Visit 10/04/2018 Office Visit Cardiology Yeny Huntley, MANAGEMENT ENGINEER - [employer]Y FISHING GUIDE [address] [place] [address] [phone] [facility] Start: 08-05-2018 Annual Wellness Visit (AWV) Annual Wellness Visit (AWV) [facility] Start: 2017 RSV Immunization for Adults (1 - 1-dose 75+ series) RSV Immunization for Adults (1 - 1-dose 75+ series) [facility] Start: 10-16-2007 Pneumococcal 65+ years Vaccine (1 of 2 - PCV13) Pneumococcal 65+ years Vaccine (1 of 2 - PCV13) [place] Start: 2005 Annual Wellness Visit (AWV) Annual Wellness Visit (AWV) [place] Start: 2002 Hepatitis B Vaccines (1 of 3 - Risk 3-dose series) Hepatitis B Vaccines (1 of 3 - Risk 3-dose series) [facility] Start: 2002 RSV Immunization aged 60 or older (1 - 1-dose 60+ series) RSV Immunization aged 60 or older (1 - 1-dose 60+ series) [facility] Start: 1992 Colon cancer screen colonoscopy Colon cancer screen colonoscopy [place] Start: 1992 Shingles Vaccine (1 of 2) Shingles Vaccine (1 of 2) [facility] Start: 1992 Shingrix Vaccine (1 of 2) Shingrix Vaccine (1 of 2) [facility] Start: 1992 Zoster Vaccines (1 of 2) Zoster Vaccines (1 of 2) [facility] Start: 1961 DTaP/Tdap/Td vaccine (1 - Tdap) DTaP/Tdap/Td vaccine (1 - Tdap) [place] Start: 1961 Hepatitis A Vaccines (1 of 2 - Risk 2-dose series) Hepatitis A Vaccines (1 of 2 - Risk 2-dose series) [facility] Start: 1961 Urine microalbumin profile DTaP,Tdap,Td Vaccine (1 - Tdap) [facility] Start: 1961 Urine screening for protein Diabetes: Urine Protein Screening [facility] Start: 1960 Diabetes: Urine Albumin-Creatinine Ratio for Kidney Health Diabetes: Urine Albumin-Creatinine Ratio for Kidney Health [facility] Start: 1960 Hepatitis C screening Hepatitis C Screening [facility] Start: 1954 Depression Monitoring Depression Monitoring [facility] Start: 1954 Depression Screen Depression Screen [facility] Start: 1954 Depression Screening Depression Screening [facility] [employer] Start: 1953 DTaP/Tdap/Td vaccine (1 - Tdap) DTaP/Tdap/Td vaccine (1 - Tdap) [facility] Work Phone: Start: 1952 Diabetic foot examination Diabetes: Foot Exam [facility] Start: 1952 Glaucoma screening Diabetes: Retinopathy Screening [facility] Start: 1952 Preventive dental service Diabetes: Dental Exam [facility] Start: 10-16-1941 Hepatitis A Vaccines (1 of 2 - Risk 2-dose series) Hepatitis A Vaccines (1 of 2 - Risk 2-dose series) [facility] Start: 1942 Echocardiography Echocardiogram [facility] Start: 1942 Hemoglobin A1c measurement Diabetes: Hemoglobin A1C [facility] Start: 1942 Hepatitis B Vaccines (1 of 3 - 3-dose series) Hepatitis B Vaccines (1 of 3 - 3-dose series) [facility] Start: 1940 Medicare Annual Wellness (AWV) Medicare Annual Wellness (AWV) [facility] Start: 1940 Screening for osteoporosis Bone Density Scan [facility] Bacteria identified in Blood by Culture Blood culture #1 - Suspected Infection Microbiology STAT 06/13/2022 2:43 PM EDT [facility] Bacteria identified in Blood by Culture Blood culture #1 - Suspected Infection Microbiology STAT 06/13/2022 3:49 PM EDT [facility] Bacteria identified in Urine by Culture Urine Culture [facility] End: 03-07-2019 Blood glucose - POCT Blood glucose - POCT Point of Care Testing Routine One Time for 1 Occurrences starting 03/07/2019 until 03/07/2019 [facility] Work Phone: Comment on above: One Time for 1 Occurrences starting 02/09 until 03/07/2019 Comprehensive metabo lic 2000 panel Comprehensive Metabolic Panel Lab Routine Daily until discontinued starting 09/17/2018, 1 completed [place], [place] Comment on above: Daily until discontinued starting 2018, 1 completed End: 05-13-2021 CT HEAD WO CONTRAST [facility] Work Phone: Comment on above: Once for 1 Occurrences starting 05/14/19 22 until 05/13/2021 End: 06-13-2022 Hemoglobin.gastrointestinal.low er [Presence] in Stool by Immunoassay --1st specimen [facility] [facility] Work Phone: Comment on above: STAT (Lab) for 1 Occurrences starting until 06/13/2022 Once (Lab) for 1 Occ urrences starting 06/13/2022 until 06/13/2022 Initiate Oxygen Ther apy Protocol [facility], [place] Comment on above: Daily until discontinued starting 2018 Daily until disconti nued starting 02/11/2019 End: 12-20-2023 MR Abdomen WO and W [facility] Work Phone: Comment on above: Once for 1 Occurrences starting 12/20/19 24 until 12/20/2023 OUTSIDE PROCEDURE SCAN OUTSIDE P ROCEDURE SCAN Procedures Ordered: 06/13/2022 [facility] Comment on above: Ordered: 06/13/2022 OUTSIDE PROCEDURE SCAN OUTSIDE P ROCEDURE SCAN Procedures Ordered: 09/24/2022 [facility] Comment on above: Ordered: 09/24/2022 OUTSIDE PROCEDURE SCAN OUTSIDE P ROCEDURE SCAN Procedures Ordered: 10/27/2022 [facility] Comment on above: Ordered: 10/27/[address] [facility] Work Phone: Patient referral [facility] Work Phone: End: 03-07-2019 Pulse Oximetry Spot Check Pulse Oximetry Spot Check Respiratory Care Routine One Time for 1 Occurrences starting 03/07/2019 until 03/07/2019 [facility] Work Phone: Comment on above: One Time for 1 Occurrences starting 02/09 until 03/07/2019 End: 09-21-2018 Surgical Pathology Surgical Pathology Lab Routine Once for 1 Occurrences starting 09/21/2018 until 09/21/2018 [facility], [place] Comment on above: Once for 1 Occurrences starting 09/22/19 19 until 09/21/2018 Surgical Pathology [facility], [place] End: 02-15-2019 Surgical Pathology Surgical Pathology Lab Routine Once for 1 Occurrences starting 02/15/2019 until 02/15/2019 [facility] Work Phone: Comment on above: Once for 1 Occurrences starting 02/15/19 20 until 02/15/2019 [facility] Work Phone: Comment on above: Release Upon Ordering for 1 Occurrences starting 02/23/2022, 1 completed End: 10-28-2022 US Abdomen [facility] [employer] Work Phone: Comment on above: Once for 1 Occurrences starting 10/29/19 23 until 10/28/2022 End: 05-21-2020 US Thyroid US Thyroid Imaging Routine Thyroid nodule 1 Occurrences starting 05/21/2020 until 05/21/2020 [facility] Work Phone: Comment on above: 1 Occurrences starting 05/21/2020 until 05/21/2020 US THYROID US THYROID Imagi ng Routine Thyroid nodule 05/21/2020 1:55 PM EDT [facility] Work Phone: Immunizations Immunization Date Immunization Notes Care Provider [facility] 01-11-2023 influenza virus vaccine, unspecified formulation Mita Morton DO Work Phone: [facility] 12-23-2021 Influenza, high dose seasonal Dr. Mita Morton DO Work Phone: [facility] 12-23-2021 influenza, high dose seasonal, preservative-free Dr. Mita Morton Work Phone: [facility] 12-23-2021 influenza virus vaccine, unspecified formulation Toni Bey MD Work Phone: [facility] 11-15-2020 Pfizer SARS-CoV-[address] Mita Morton Work Phone: [facility] 05-03-2020 Pfizer SARS-CoV-[address] Mita Morton Work Phone: [facility] 04-09-2020 Pfizer SARS-CoV-[address] Mita Morton Work Phone: [facility] Payers Date Payer Category Payer Self-pay [id number] 2021 Medicare supplementa l policy (as second payer) [facility] [id number] 2021 Unknown [id number] 2015 Unknown [id number] 2015 Unknown [employer] [address] [id number] 2015-Present [phone] [address] [place] [address] [id number] 2015 Unknown [id number] 2014 Medicare MEDICARE MEDICAR E PART A AND B xxxxxxxxxxx 2014-Present [phone] [place] [address] xxxxxxxxxxx [id number] 2014 Medicare MEDICARE MEDICAR E PART A AND B [id number] 2014-Present [phone] [address] [place] [address] [id number] 2007 Medicare [id number] .[id number] 2007 Medicare [id number] .[id number] Unknown [id number] 2.16.840.1.134647.3.579.2 .462 Unknown [id number] 2.16.840.1.694260.3.579.2 .462 Unknown [id number] 2.16.840.1.624115.3.579.2 .462 Unknown [id number] 2.16.840.1.144363.3.579.2 .462 Unknown [id number] 2.16.840.1.430439.3.579.2 .462 Unknown [id number] 2.16.840.1.879835.3.579.2 .462 Unknown [id number] 2.16.840.1.684563.3.579.2 .462 Unknown [id number] 2.16.840.1.992124.3.579.2 .462 Unknown [id number] 2.16.840.1.845949.3.579.2 .462 Unknown [id number] 2.16.840.1.758001.3.579.2 .462 Unknown [id number] 2.16.840.1.603534.3.579.2 .462 Unknown [id number] 2.16.840.1.035639.3.579.2 .462 Unknown [id number] 2.16.840.1.004254.3.579.2 .462 Unknown [id number] 2.16.840.1.643139.3.579.2 .462 Unknown [id number] .462 Social History Date Type Detail Facility Start: 09-21-2018 End: 07-27-2023 Tobacco smoking status MOIS Never smoker [facility] Start: 09-21-2018 End: 08-18-2023 Alcohol intake Not Currently [place], [place] Start: 1940 Sex Assigned At Not on file [place] Start: 03-07-2019 End: 11-05-2020 Alcohol intake Ex-drinker (finding) [facility] Work Phone: Start: 08-04-2018 End: 03-07-2019 Tobacco use and exposure Never used [facility] [place], [place] Start: 1940 Sex Assigned At Female S [facility] Work Phone: Start: 02-13-2022 End: 10-28-2022 Exposure to SARS-CoV-2 (event) Not sure [facility] Start: 02-10-2019 End: 04-04-2023 Tobacco smoking status NHIS Unknown if ever smoked [facility] Start: 02-10-[address] [facility] Start: 02-24-2022 End: 06-13-2022 Alcohol intake Not Asked [facility] Start: 06-14-2022 End: 08-18-2023 History of Social function [facility] Start: 11-27-2021 Sexual orientation Heterosexual (fin ding) [facility] Start: 08-25-2022 End: 08-18-2023 Alcohol intake Lifetime non-drinker (finding) [facility] Start: 09-08-2021 Sex Female (finding) [facility] NEGATED: Highlighted row [facility] Medical Equipment Procedure Code Equipment Code Equipment Origin al Text Equipment Identifier Dates TEST SUGAR ONCE A DAY [id number] Start: 03-27-2021 TEST SUGAR ONCE A DAY [id number] Start: 03-27-2021 Goals Date Patient Goal Desired Activity /State Functional Status Date Assessment Result Facility 05-13-2022 Functional status Bathroom Privilege [facility] Work Phone: Mental Status Date Assessment Result Facility 01-04-2023 Cognitive function Voice/Name [facility] Work Phone: 06-01-2022 Cognitive function Level Of Cons ciousness Awake;Alert;Appropriate;Follow s Commands [facility] Work Phone: 05-13-2022 Cognitive function Appropriate;Cooperativ e [facility] Work Phone: 05-13-2022 Cognitive function Voice/Name [facility] Work Phone: Clinical Notes 02-13-2019 to 08-18-2023 Toni Bey MD - 08/18/2023 11:00 AM EDTTelephone Encounter - Olivia Leigh - 07/27/2023 9:00 AM EDTTelephone Encounter - Olivia Leigh - 07/27/2023 9:00 AM EDT Note Date & Type Note Facility 08-18-2023 History of Presen t illness Narrative [facility] Cardiology [facility] [address] [facility] [address] Dept: [phone] Dept Visit type: Established : 1940 Chief Complaint: Chief Complaint Patient presents with 1 Year Follow-up Coronary Artery Disease History of Present Illness: Prema Villalpando is a 82 y.o. female who is here in follow-up. She is here with her daughter. She has a history of remote stenting. She has not been complaining of chest pain according to her daughter. The patient has progressive dementia so the daughter essentially answered all the questions. Currently patient lives with her daughter but they are hoping on getting her into a memory care unit. Past Medical History: Past Medical History: Diagnosis Date Anemia Anxiety GERD (gastroesophageal reflux disease) H/O heart artery stent 08/04/2018 History of blood transfusion Hx of blood clots Hyperlipidemia Hypertension Past Surgical History Past Surgical History: Procedure Laterality Date CHOLECYSTECTOMY 03/2019 COLONOSCOPY COLONOSCOPY 03/07/2019 stent removal COLONOSCOPY 09/21/2018 ERCP (HISTORICAL) 02/15/2019 EYE SURGERY Bilateral cataract THROAT SURGERY 2014 TUBAL LIGATION 1989 UPPER GASTROINTESTINAL ENDOSCOPY 08/08/2018 Dr [facility] Family History Family History Problem Relation Name Age of Onset High Blood Pressure Mother Heart disease Brother Cancer Brother Coronary artery disease Brother High Blood Pressure Brother Diabetes Brother Social History Social History Tobacco Use Smoking status: Never Smokeless tobacco: Never Vaping Use Vaping status: Never Used Substance Use Topics Alcohol use: Never Drug use: Never Allergies: Allergies Allergen Reactions Ticagrelor Shortness of breath Medications: Current Outpatient Medications: Lancets (OneTouch Delica) lancets 30G, TEST SUGAR ONCE A DAY, Disp: , Rfl: metFORMIN (Glucophage) 500 MG tablet, Take 500 mg by mouth in the morning and 500 mg in the evening. Take with meals., Disp: , Rfl: mirtazapine (Remeron) 15 MG tablet, Take 15 mg by mouth Nightly., Disp: , Rfl: omeprazole (PriLOSEC) [address] capsule, Take 40 mg by mouth every morning (before breakfast). Do not crush or chew., Disp: , Rfl: OneTouch Ultra test strip, TEST SUGAR ONCE A DAY, Disp: , Rfl: oxybutynin (Ditropan) 5 MG tablet, Take 5 mg by mouth 2 times daily., Disp: , Rfl: rivastigmine (Exelon) 3 MG capsule, Take 3 mg by mouth 2 times daily., Disp: , Rfl: sertraline (Zoloft) 50 MG tablet, Take 50 mg by mouth daily., Disp: , Rfl: therapeutic multivitamin-minerals (Theragran-M) tablet, Take 1 tablet by mouth daily., Disp: , Rfl: tiZANidine (Zanaflex) 4 MG tablet, TAKE 1 TABLET BY MOUTH THREE TIMES A DAY NEEDED *50 TABLETS TO LAST 30 DAYS*, Disp: , Rfl: torsemide (Demadex) 20 MG tablet, TAKE 1 TABLET BY MOUTH EVERY DAY, Disp: 90 tablet, Rfl: 1 clopidogrel (Plavix) 75 MG tablet, Take 75 mg by mouth daily., Disp: , Rfl: fesoterodine ER (Toviaz) 4 MG 24 hr tablet, Take 4 mg by mouth daily., Disp: , Rfl: potassium chloride ER (Micro-K) 10 MEQ ER capsule, TAKE 1 TABLET BY MOUTH TWICE DAILY WITH MEALS, Disp: , Rfl: Review of Systems: Review of Systems Constitutional: Negative for activity change, chills, diaphoresis, fatigue and fever. HENT: Negative for nosebleeds and trouble swallowing. Eyes: Negative for discharge and visual disturbance. Respiratory: Negative for apnea, cough, chest tightness, shortness of breath and wheezing. Cardiovascular: Negative for chest pain, palpitations and leg swelling. Gastrointestinal: Negative for abdominal distention, abdominal pain, blood in stool, diarrhea, nausea and vomiting. Endocrine: Negative for cold intolerance and heat intolerance. Genitourinary: Negative for hematuria. Musculoskeletal: Negative for gait problem and myalgias. Skin: Negative for color change and rash. Neurological: Negative for dizziness, seizures, syncope, facial asymmetry, speech difficulty, weakness, light-headedness, numbness and headaches. Hematological: Does not bruise/bleed easily. Psychiatric/Behavioral: Negative for dysphoric mood. Physical Examination: Vitals: Vitals: 08/18/23 1105 BP: 106/56 BP Location: Right arm Patient Position: Sitting BP Cuff Size: Adult Pulse: 62 Resp: 16 SpO2: 97% Weight: 103 lb 3.2 oz (46.8 kg) Height: 5' (1.524 m) Body mass index is 20.15 kg/m . Physical Exam Laboratory Tests: Lab Results Component Value Date WBC 6.3 06/16/2022 HGB 9.4 (L) 06/16/2022 HCT 28.0 (L) 06/16/2022 MCV 81.5 06/16/2022 PLT 166 06/16/2022 Lab Results Component Value Date GLUCOSE 108 (H) 09/24/2022 CALCIUM 9.5 09/24/2022 NA 142 09/24/2022 K 4.2 09/24/2022 CO2 32 (H) 09/24/2022 CL 106 09/24/2022 BUN 18 (H) 09/24/2022 CREATININE 0.85 09/24/2022 @LASTCMP@ Lab Results Component Value Date CHOL 143 09/24/2022 CHOL 127 11/08/2020 Lab Results Component Value Date TRIG 45 09/24/2022 TRIG 63 11/08/2020 Lab Results Component Value Date HDL 61 (H) 09/24/2022 HDL 61 (H) 11/08/2020 Lab Results Component Value Date LDLCALC 73 09/24/2022 NT PRO BNP Date Value Ref Range Status 06/13/2022 575 (H) <20 - 300 pg/mL Final Assessment and Plan: 1. Coronary artery disease involving [place] coronary artery of [place] heart without angina pectoris 2. Persistent atrial fibrillation (HCC) 3. Mixed hyperlipidemia 4. Vascular dementia, unspecified dementia severity, unspecified whether behavioral, psychotic, or mood disturbance or anxiety (HCC) 1. Coronary artery disease: She is currently stable with no symptoms of angina. No further therapy is needed at this time. 2. Dementia: This is her main problem now. She has progressive dementia. We will try to simplify her medicines. She is only on metoprolol once daily. She does not have hypertension or angina so we can stop that. She is already stopped her statin. documented in this encounter [facility] 07-27-2023 Telephone encount er Note Form signed and faxed back to [phone]. Form uploaded to chart [employer]. [facility] 07-27-2023 Miscellaneous Notes Formattin g of this note might be different from the original. Form signed and faxed back to [phone]. Form uploaded to [employer]. Received form from [facility] for cardiac clearance for EGD with MAC sedation. Form and last OV given to nurse. documented in this encounter [facility] 07-23-2023 Telephone encount er Note Received form from [facility] for cardiac clearance for EGD with MAC sedation. Form and last OV given to nurse. [facility] 07-23-2023 Miscellaneous Notes Formattin g of this note might be different from the original. Received form from [facility] for cardiac clearance for EGD with MAC sedation. Form and last OV given to nurse. documented in this encounter [facility] 07-20-2023 Telephone encount er Note S: Patient's daughter Hossein spoke with [facility] nurse regarding fall. B: Onset of symptoms/concern this morning. A: Patient had an unwitnessed fall this morning while making the bed. Daughter states no apparent injuries seen. Patient not on a blood thinner. Patient is not complaining of any pain. Patient has advanced dementia and hard to assess patient, but no bruising, bleeding, or bumps noted on the patient. Patient is ambulating without any issues. Daughter not sure if the patient should be evaluated for the fall. R: Daughter advised a message will be sent to the provider and the office will follow up. Daughter also going to call the office back after they open this morning. Daughter understands and no further needs at this time. Patient instructed to call back with new or worsening symptoms. Reason for Disposition [1] Recent fall AND [2] no injury Protocols used: Falls and [id number] [facility] 07-20-2023 Miscellaneous Notes Formattin g of this note might be different from the original. S: Patient's daughter Hossein spoke with [facility] nurse regarding fall. B: Onset of symptoms/concern this morning. A: Patient had an unwitnessed fall this morning while making the bed. Daughter states no apparent injuries seen. Patient not on a blood thinner. Patient is not complaining of any pain. Patient has advanced dementia and hard to assess patient, but no bruising, bleeding, or bumps noted on the patient. Patient is ambulating without any issues. Daughter not sure if the patient should be evaluated for the fall. R: Daughter advised a message will be sent to the provider and the office will follow up. Daughter also going to call the office back after they open this morning. Daughter understands and no further needs at this time. Patient instructed to call back with new or worsening symptoms. Reason for Disposition [1] Recent fall AND [2] no injury Protocols used: Falls and [id number] documented in this encounter [facility] 04-14-2023 Telephone encount er Note Patient is scheduled to see JDR on 08/18/23. [facility] 04-14-2023 Miscellaneous Notes Formattin g of this note might be different from the original. Patient is scheduled to see JDR on 08/18/23. BEATRIS: 08/25/22, Labs: 09/24/22 documented in this encounter [facility] 04-12-2023 Telephone encount er Note BEATRIS: 08/25/22, Labs: 09/24/22 [facility] 04-12-2023 Miscellaneous Notes Formattin g of this note might be different from the original. BEATRIS: 08/25/22, Labs: 09/24/22 documented in this encounter [facility] 04-04-2023 History of Presen t illness Narrative Patient was brought in with complaints of a fall last night. Patient's daughter said they were running in a parking lot and she tripped and wiped out. Patient is not on any blood thinners but did hit her head. Due to age and risk factors patient is being sent to the ER for a more thorough evaluation as patient has dementia so it is extremely hard to rule out head injury. Patient's daughter was okay with this patient's daughter will take her to the ER. documented in this encounter [facility] 01-04-2023 History and physi sean note Note Date/Time January 04, 2023 11:21am [facility] Medical Records Department [address] [place] [address] History & Physical Exam 01/04/23 1120 MR#: [id number] Acct: [id number] Name: PREMA VILLALPANDO Rep #:[id number] : 1940 82 From: Roque Herrera DO PCP: Mita Morton DO [place] [place] [address] History and Physical Date of Admission: 01/04/23 81 F who presents with trouble swallowing. She was brought to the emergency department by her daughter for complaint of difficulty swallowing.? Patient apparently was having a hard time swallowing her meal yesterday.? She had a hardtime swallowing her pills today.? Patient has history of EGD with esophageal dilatation around 2021.? She per daughter had been doing relativelywell until recently.? She had had 1 prior dilatation years ago.? Patient currently at assisted living facility.? Patient has history of dementia and is somewhat of a poor historian.? Apparently she is able to swallow liquids.? Her last dilatation was in [place]. ?Imaging demonstrates a large hiatal hernia. [facility] Medical History (Updated 05/12/22 @ 18:[address] Nevarez Friend, DO) Anemia Atherosclerotic heart disease of [place] coronary artery without angina pectoris Dementia Diabetes Dyslipidemia Gallstone of bile duct with gallbladder inflammation h/o throat surgery H/O transfusion of whole blood Hx of blood clots Hyperlipidemia Hypertension Iron deficiency anemia, unspecified Paroxysmal atrial fibrillation Persistent atrial fibrillation Wears hearing aid in both ears Home Medications Atorvastatin Calcium 80 mg PO DAILY 10/18/18 [History Last Taken Unknown] Omeprazole [Prilosec] 40 mg PO DAILY 10/18/18 [History Last Taken Unknown] aspirin 81 mg chewable tablet 81 mg PO DAILY@0800 10/18/18 [History Last Taken Unknown] clopidogrel 75 mg tablet 75 mg PO DAILY 10/18/18 [History Last Taken Unknown] potassium chloride 10 mEq tablet,extended release 10 meq PO BID 10/18/18 [History Last Taken Unknown] sertraline 50 mg tablet 50 mg PO DAILY 10/18/18 [History Last Taken Unknown] torsemide 20 mg tablet 20 mg PO DAILY 10/18/18 [History Last Taken Unknown] clotrimazole 10 mg sophie 10 mg PO TID PRN PRN Mouth Irritation 05/12/22 [History Last Taken Unknown] memantine 10 mg tablet 10 mg PO DAILY 05/12/22 [History Last Taken Unknown] metformin 500 mg tablet 500 mg PO BID 05/12/22 [History Last Taken Unknown] metoprolol tartrate 25 mg tablet 12.5 mg PO DAILY 05/12/22 [History Last Taken Unknown] mirtazapine 15 mg tablet 15 mg PO QHS 05/12/22 [History Last Taken Unknown] oxybutynin chloride 5 mg tablet 5 mg PO BID 05/12/22 [History Last Taken Unknown] tizanidine 4 mg tablet 4 mg PO TID PRN PRN Muscle Spasm 05/12/22 [History Last Taken Unknown] Allergy/AdvReac Type Severity Reaction Status Date / Time ticagrelor [From Brilinta] Allergy Shortness Verified 05/12/22 12:19 of breath Family History Other no pertinent family medical hsitory Surgical History H/O colonoscopy H/O eye surgery H/O heart artery stent Social History Smoking Status: Never smoker ROS Constitutional Constitutional: Denies chills, fatigue, fever(s) or malaise Eyes Eyes: Denies blurry vision ENT HEENT: Denies headache(s) or nasal discharge Cardiovascular Cardiovascular: Denies chest pain, dyspnea on exertion or syncope Respiratory/Chest Respiratory/Chest: Denies cough, shortness of breath at rest or shortness of breath with exertion Gastrointestinal Gastrointestinal: Reports dysphagia; Denies constipation, diarrhea, nausea or vomiting Genitourinary Genitourinary: Denies dysuria Neurologic Neurologic: Denies focal weakness, numbness or tremor(s) Psychiatric Psychiatric: Denies anxiety or depression Physical Exam Narrative General: Alert, confused, Cooperative, No apparent distress HEENT: Atraumatic, PERRLA, EOMI, Normocephalic, hard of hearing hearing aid is in Oral: Moist Mucosa Neck: Supple, No JVD Lungs: Diminished, Normal air movement, No rhonchi, No wheeze, No rales Cardiovascular: Regular rate, Regular Rhythm, Normal S1, Normal S2, No murmurs Abdomen: Soft, Non Tender, Non-Distended, No Hepato-splenomegaly Extremities: No edema, Capillary Refill Less than 3 Seconds Skin: No rashes, No breakdown Musculoskeletal: No Tenderness to Palpation of Joints or Extremities Neurological: Cranial nerves II-XII grossly intact, Motor Exam 5/5 strength throughout, Sensory exam intact to light touch and pain Psych/Mental Status: Normal Affect, Appropriate Lab / Micro Data Result Diagrams: 05/12/22 10:15 05/12/22 10:15 Labs: Laboratory Results - last 24 hr 05/12/22 10:15: WBC 5.6, RBC 3.40 L, Hgb 9.4 L, Hct 30.6 L, MCV 90.0, MCH 27.6, MCHC 30.7 L, RDW Std Deviation 42.2, RDW Coeff of Galen 12.9, Plt Count 175, MPV 11.5, Immature Gran % (Auto) 0.200, Neut % (Auto) 70.4 H, Lymph % (Auto) 17.0 L,Bandera % (Auto) 8.8, Eos % (Auto) 2.9, Baso % (Auto) 0.7, Absolute Neuts (auto) 4.0, Absolute Lymphs (auto) 0.95, Nucleated RBC % 0 05/12/22 10:15: Sodium 139, Potassium 3.9, Chloride 107, Carbon Dioxide 29.0, Anion Gap 3 L, BUN 22 H, Creatinine 0.88, Estim Creat Clear Calc 40.09, Est GFR (MDRD) Af Amer 80, Est GFR (MDRD) Non-Af 66, BUN/Creatinine Ratio 25.1 H, Glucose 99, Calcium 9.0 05/12/22 17:06: POC Glucose 110 H Radiology Impression Chest X-Ray 05/12/22 10:00 IMPRESSION: No acute abnormality is seen. Large hiatal hernia. Electronically Signed: Demar Toscano MD at 10:11 EDT , Assessment & Plan Assessment/Plan (1) Dysphagia: PLAN: She will need to undergo evaluation of her upper GI tract to see if she is having problems with the large paraesophageal hernia that is seen on chest x-ray. She likely has an esophageal stricture from her paraesophageal hernia. She will also be evaluated for eosinophilic esophagitis and other esophageal motility disorders. She was explained alternatives, risk, benefits include not withstanding bleeding, infection, sepsis, perforation, need for emergency or . Show an ASA of 3. I have examined the patient and the H&P has been reviewed. There are no clinicalchanges since date of exam. 01/04/23 1121 <Electronically signed by Roque Herrera DO> Cosigner Signature (if applicable): CC: Mita Morton DO; Roque Herrera, DO~ Signed [facility] Work Phone: 1(155) 774-635511-27-2023 Procedure [facility] 01-04-2023 Procedure [facility]11-02-2023 Telephone encounter Note* Telephone Encounter - Olivia Lu - 12/10/2022 1:03 PM EDT Form signed and faxed back to [phone] on 12/10/22. Form uploaded to [employer]. [facility] [id number] Miscellaneous Notes* Telephone Encounter - Olivia Leigh - 12/10/2022 1:03 PM EDT Form signed and faxed back to [phone] on 12/10/22. Form uploaded to [employer]. * Telephone Encounter - Olivia Leigh - 12/09/2022 2:03 PM EDT Received fax from [place] [facility] for cardiac clearance for EGD on 01/04/23. Form and last OV given to nurse. documented in this [facility]SA[facility] [id number] Telephone encounter Note* Telephone Encounter - Olivia Leigh - 12/09/2022 2:03 PM EDT Received fax from [place] [facility] for cardiac clearance for EGD on 01/04/23. Form and last OV given to nurse. [facility], [id number] Miscellaneous Notes* Telephone Encounter - Olivia Leigh - 12/09/2022 2:03 PM EDT Received fax from [place] [facility] for cardiac clearance for EGD on 01/04/23. Form and last OV given to nurse. documented in this [facility]09-13-2023 Discharge summary Author Ami Thayer [facility] October 21, 2022 1:29pm Note Date/Time October 21, 2022 1:29pm [facility] Physical Therapy [facility] [address] [place] [address] / REHABILITATION SERVICES DISCHARGE SUMMARY MR#: [id number] Acct: [id number] Name: PREMA VILLALPANDO Rep #: [id number] : 1940 82 From: Ami Thayer PT, Cert. MDT Referring Dr.: Mita Morton DO Status: REG RCR Insurance: MEDICARE PART A B [facility] Discharge Summary D/C summary: It has been my pleasure to treat PREMA VILLALPANDO referred by Dr. Mita Morton DO, with the diagnosis of SCIATIC NERVE PAIN for a total of 9 visit(s). Discharge Date: Please see the following information for a summary of their discharge status. Subjective Subjective: PATIENT PRESENTS TO PT TODAY WITH HER DAUGHTER. HER DAUGHTER REPORTS HER MOM HAS ONLY COMPLAINED ABOUT A LITTLE LOW BACK PAIN ONCE RECENTLY. SHE STATES SHE HASN'T BEEN USING THE CANE OR THE WALKER AND THEY HAVE GONE TO THE FAIR AND WALKED AROUND A LOT TWICE. Palliative Care STARTED WEDNESDAY. HER DIAGNOSIS FOR PALLIATIVE CARE IS DIMENTIA PER DAUGHTER. PATIENTS DAUGHTER STATES THEY HAVE BEEN DOING HER HEP AND THEY ARE READY TO GO BACK TO ANY TIME FITNESS. Overall Improvement % Improvement: 98 Objective Objective/Function: PATIENT WAS SEEN TODAY FOR RE-ASSESSMENT OF PROGRESS TOWARD THE SET PT GOALS AND THE NEED FOR FURTHER PHYSICAL THERAPY VS READINESS FOR DISCHARGE. PATIENT HAS MADE GOOD PROGRESS WITH PT AND IS APPROPRIATE FOR DISCHARGE. PATIENTS DAUGHTER IS AGREEABLE. PATIENTS DAUGHTER GAVE SUBJECTIVE INFORMATION FOR PATIENT TODAY AND AND HELPED PATIENT WITH OSWESTRY. PATIENT IS ABLE TO FOLLOW SIMPLE COMMANDS WITH CUEING. Goals Goal 1:: PATIENT WILL BE INDEP WITH A HEP WITH THE HELP OF A CAREGIVER FOR CONTINUED IMPROVEMENT ONCE FORMAL PHYSICAL THERAPY CONCLUDES. Goal Progress: Goal Met Goal 2:: PATIENT WILL COMPLETE 12 STANDS IN 30 SECS TO DEMONSTRATE IMPROVED FUNCTIONAL STRENGTH Goal Progress: Goal Met Goal 3:: PATIENT WILL COMPLETE TUG IN < 10 SECS TO DEMONSTRATE IMPROVED GAIT STABILITY Goal Progress: Progressing Plan Plan: D/C D/C Information d/c sentence: If there are questions or concerns regarding this patient's physical therapy, please feel free to call me at [phone]. Thank you for the referral of this patient. Sincerely, Ami Thayer, PT, Cert MDT Balance/Gait/Functional tests Balance/Special Test Scores Oswestry Low Back Score: 5 TUG Test Time Seconds: 11.53 Tug Test: <20 sec.=mostly independent 30 Second Chair Rise Test Seconds: 12 Improvement % Improvement: 98 <Electronically signed by Ami Thayer PT, Cert. MDT> 10/21/22 1329 CC: Mita Morton, ~ ABIGAIL Signed [facility] Work Phone: 1(114) 533-414608-17-2023 Miscellaneous Notes* Result Encounter Note - Cheryl Lopez PA-C - 09/24/2022 9:36 AM EDT Emigdio, Looks like labs were done for refill request. Liver function is less elevated that before, but please make sure she is following up on this with PCP or GI. Looks like she was admitted in June with this issue. documented in this [facility]08-17-2023 Progress note* Result Encounter Note - Cheryl Lopez PA-C - 09/24/2022 9:36 AM EDT Emigdio, Looks like labs were done for refill request. Liver function is less elevated that before, but please make sure she is following up on this with PCP or GI. Looks like she was admitted in June with this issue. [facility] Work Phone: 1(225) 315-208708-07-2023 Miscellaneous Notes* Result Encounter Note - Cheryl Lopez PA-C - 09/14/2022 3:15 PM EDT Mrs. Villalpando, Your blood work you had done on September 14 look stable. Please call with any questions or concerns. Thank you, Cheryl Lopez PA-C documented in this [facility]08-07-2023 Progress note* Result Encounter Note - Cheryl Lopez PA-C - 09/14/2022 3:15 PM EDT Mrs. Villalpando, Your blood work you had done on September 14 look stable. Please call with any questions or concerns. Thank you, Cheryl Lopez PA-C [facility] Phone: 1(585) 995-555907-18-2023 NoteSinus Rhythm -Poor R-wave progression -may be secondary to pulmonary disease consider old anterior infarct. Low voltage with rightward P-axis and rotation -possible pulmonary disease. ABNORMAL [facility], [id number] NoteSinus Rhythm -Poor R-wave progression -may be secondary to pulmonary disease consider old anterior infarct. Low voltage with rightward P-axis and rotation -possible pulmonary disease. ABNORMAL [facility] [id number] History of Present illness Narrative* Toni Bey MD - 08/25/2022 10:00 AM EDT [facility] Cardiology [facility] [address] [facility] [address] Dept: [phone] Dept Visit type: Established : 1940 Chief Complaint: Chief Complaint Patient presents with 1 Year Follow-up Coronary Artery Disease History of Present Illness: Prema Villalpando is a 81 y.o. female who is here in follow-up concerning her coronary artery disease. She had stenting 3 to 4 years ago of her circumflex system. She has not had symptoms of angina since. She has had problems with anemia and dementia. She lives independently but her daughter lives next door keeps a close eye on her. She has not been complaining of chest pain or shortness of breath. Past Medical History: Past Medical History: Diagnosis Date Anemia Anxiety GERD (gastroesophageal reflux disease) H/O heart artery stent 08/04/2018 History of blood transfusion Hx of blood clots Hyperlipidemia Hypertension Past Surgical History Past Surgical History: Procedure Laterality Date CHOLECYSTECTOMY 03/2019 COLONOSCOPY COLONOSCOPY 03/07/2019 stent removal COLONOSCOPY 09/21/2018 ERCP (HISTORICAL) 02/15/2019 EYE SURGERY Bilateral cataract THROAT SURGERY 2014 TUBAL LIGATION 1989 UPPER GASTROINTESTINAL ENDOSCOPY 08/08/2018 [facility] Family History Family History Problem Relation Name Age of Onset High Blood Pressure Mother Heart disease Brother Cancer Brother Coronary artery disease Brother High Blood Pressure Brother Diabetes Brother Social History Social History Tobacco Use Smoking status: Never Smokeless tobacco: Never Vaping Use Vaping Use: Never used Substance Use Topics Alcohol use: Never Drug use: Never Allergies: Allergies Allergen Reactions Ticagrelor Shortness of breath Medications: Current Outpatient Medications: atorvastatin (Lipitor) 80 MG tablet, TAKE 1 TABLET BY MOUTH NIGHTLY, Disp: 30 tablet, Rfl: 10 clopidogrel (Plavix) 75 MG tablet, Take 75 mg by mouth daily., Disp: , Rfl: fesoterodine ER (Toviaz) 4 MG 24 hr tablet, Take 4 mg by mouth daily., Disp: , Rfl: Lancets (OneTouch Delica) lancets 30G, TEST SUGAR ONCE A DAY, Disp: , Rfl: memantine (Namenda) 10 MG tablet, Take 10 mg by mouth 2 times daily., Disp: , Rfl: metFORMIN (Glucophage) 500 MG tablet, Take 500 mg by mouth in the morning and 500 mg in the evening. Take with meals., Disp: , Rfl: metoprolol tartrate (Lopressor) 25 MG tablet, Take 25 mg by mouth 2 times daily., Disp: , Rfl: mirtazapine (Remeron) 15 MG tablet, Take 15 mg by mouth Nightly., Disp: , Rfl: omeprazole (PriLOSEC) [address] capsule, Take 40 mg by mouth every morning (before breakfast). Do not crush or chew., Disp: , Rfl: OneTouch Ultra test strip, TEST SUGAR ONCE A DAY, Disp: , Rfl: oxybutynin (Ditropan) 5 MG tablet, Take 5 mg by mouth 2 times daily., Disp: , Rfl: potassium chloride ER (Micro-K) 10 MEQ ER capsule, TAKE 1 TABLET BY MOUTH TWICE DAILY WITH MEALS, Disp: , Rfl: rivastigmine (Exelon) 3 MG capsule, Take 3 mg by mouth 2 times daily., Disp: , Rfl: sertraline (Zoloft) 50 MG tablet, Take 50 mg by mouth daily., Disp: , Rfl: therapeutic multivitamin-minerals (Theragran-M) tablet, Take 1 tablet by mouth daily., Disp: , Rfl: tiZANidine (Zanaflex) 4 MG tablet, TAKE 1 TABLET BY MOUTH THREE TIMES A DAY NEEDED *50 TABLETS TO LAST 30 DAYS*, Disp: , Rfl: torsemide (Demadex) 20 MG tablet, TAKE 1 TABLET BY MOUTH EVERY DAY, Disp: 45 tablet, Rfl: 0 fluticasone (Flovent) 220 MCG/ACT inhaler, Inhale 2 puffs in the morning and 2 puffs in the evening. Rinse mouth with water after use to reduce aftertaste and incidence of candidiasis. Do not swallow.., Disp: 12 g, Rfl: 1 Review of Systems: Review of Systems Constitutional: Negative for activity change, chills, diaphoresis, fatigue and fever. HENT: Negative for nosebleeds and trouble swallowing. Eyes: Negative for discharge and visual disturbance. Respiratory: Negative for apnea, cough, chest tightness, shortness of breath and wheezing. Cardiovascular: Negative for chest pain, palpitations and leg swelling. Gastrointestinal: Negative for abdominal distention, abdominal pain, blood in stool, diarrhea, nausea and vomiting. Endocrine: Negative for cold intolerance and heat intolerance. Genitourinary: Negative for hematuria. Musculoskeletal: Negative for gait problem and myalgias. Skin: Negative for color change and rash. Neurological: Negative for dizziness, seizures, syncope, facial asymmetry, speech difficulty, weakness, light-headedness, numbness and headaches. Hematological: Does not bruise/bleed easily. Psychiatric/Behavioral: Negative for dysphoric mood. Physical Examination: Vitals: Vitals: 08/25/22 1012 BP: 110/60 BP Location: Left arm Patient Position: Sitting BP Cuff Size: Small adult Pulse: 68 Resp: 16 SpO2: 95% Weight: 100 lb 9.6 oz (45.6 kg) Height: 5' (1.524 m) Body mass index is 19.65 kg/m . Physical Exam Constitutional: Appearance: Normal appearance. She is underweight. HENT: Head: Normocephalic and atraumatic. Nose: Nose normal. Eyes: General: No scleral icterus. Extraocular Movements: Extraocular movements intact. Pupils: Pupils are equal, round, and reactive to light. Neck: Thyroid: No thyromegaly. Vascular: No carotid bruit or JVD. Cardiovascular: Rate and Rhythm: Normal rate and regular rhythm. Pulses: Normal pulses. Heart sounds: No murmur heard. No gallop. Pulmonary: Effort: Pulmonary effort is normal. Breath sounds: No wheezing, rhonchi or rales. Chest: Chest wall: No tenderness. Abdominal: General: Abdomen is flat. There is no distension. Palpations: Abdomen is soft. There is no hepatomegaly, splenomegaly or mass. Musculoskeletal: General: No swelling or tenderness. Normal range of motion. Cervical back: No tenderness. Skin: General: Skin is warm. Neurological: General: No focal deficit present. Mental Status: She is alert and oriented to person, place, and time. She is confused. Cranial Nerves: Cranial nerves 2-12 are intact. No cranial nerve deficit. Psychiatric: Attention and Perception: Attention normal. Mood and Affect: Mood normal. Speech: Speech normal. Behavior: Behavior normal. Laboratory Tests: Lab Results Component Value Date WBC 6.3 06/16/2022 HGB 9.4 (L) 06/16/2022 HCT 28.0 (L) 06/16/2022 MCV 81.5 06/16/2022 PLT 166 06/16/2022 Lab Results Component Value Date GLUCOSE 92 06/16/2022 CALCIUM 7.5 (L) 06/16/2022 NA 138 06/16/2022 K 3.2 (L) 06/16/2022 CO2 29 06/16/2022 CL 108 (H) 06/16/2022 BUN 21 (H) 06/16/2022 CREATININE 0.77 06/16/2022 @LASTCMP@ Lab Results Component Value Date CHOL 127 11/08/2020 Lab Results Component Value Date TRIG 63 11/08/2020 Lab Results Component Value Date HDL 61 (H) 11/08/2020 No results found for: LDLCALC NT PRO BNP Date Value Ref Range Status 06/13/2022 575 (H) <20 - 300 pg/mL Final Assessment and Plan: 1. Coronary artery disease involving [place] coronary artery of [place] heart without angina pectoris 2. Persistent atrial fibrillation (HCC) 3. Mixed hyperlipidemia 1. Coronary artery disease: She is currently stable. She has a history of stenting. She has no symptoms of angina. 2. Hyperlipidemia: On therapy. 3. Progressive dementia. 4. Recurrent anemia documented in this [facility]06-14-2023 Telephone encounter Note* Telephone Encounter - Olivia Leigh - 07/22/2022 12:51 PM EDT Patient now scheduled with JDR on 08/25/22. [facility], [id number] Miscellaneous Notes* Telephone Encounter - Olivia Leigh - 07/22/2022 12:51 PM EDT Patient now scheduled with JDR on 08/25/22. * Telephone Encounter - Leslie Samson RN - 07/20/2022 8:26 AM EDT Last OV with JDR on 08/20/21 (next OV 02/20/21 not scheduled) CMP 06/16/22 documented in this [facility]06-12-2023 Telephone encounter Note* Telephone Encounter - Leslie Samson RN - 07/20/2022 8:26 AM EDT Last OV with JDR on 08/20/21 (next OV 02/20/21 not scheduled) CMP 06/16/22 [facility] [id number] Note* Care Coordination - Alex Delatorre - 06/16/2022 3:28 PM EDT Discharge med list, MAR and covid transfer information transmitted to [facility] via [facility] per TCC request. 7000 completed in HENS. Facility is aware. [facility], [id number] Note* Care Coordination - Alex Delatorre - 06/16/2022 3:28 PM EDT Discharge med list, MAR and covid transfer information transmitted to [facility] via [facility] per TCC request. 7000 completed in HENS. Facility is aware. [facility], [id number] Miscellaneous Notes* Care Coordination - Alex Delatorre - 06/16/2022 3:28 PM EDT Discharge med list, MAR and covid transfer information transmitted to [facility] via [facility] per TCC request. 7000 completed in HENS. Facility is aware. * Care Coordination - Unknown Case Management - 06/16/2022 3:17 PM EDT Patient Choice Patient Name: PREMA VILLALPANDO Date of : 1940 All Providers Sent [facility]erral Name: [facility] Phone: [phone] Address: [address] [place] [address] * Care Coordination - Vika Thompson RN - 06/16/2022 2:59 PM EDT Task sent to [facility] via [employer] to complete 7000 and send it with dc paperwork and Covid results to [facility]. . * Care Coordination - MARA Garcia - 06/16/2022 2:12 PM EDT Dc transportation arranged for 5:00 to [facility] in [place]. 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 Ambulance transport form completed. * Care Coordination - Alex Delatorre - 06/16/2022 11:02 AM EDT Referral placed to [facility]- [facility] request. Await review and response regarding ability to accept. TCC notified. * Care Coordination - Vika Thompson RN - 06/16/2022 10:54 AM EDT Images from the original note were not included. Care Management Progress Note Secure message from Dr. Morton patient is ready for SNF placement. Daughter, Hossein, called and gave choice of [facility] in [place]. Task sent to [facility] via [facility] referral to above. Will watch for reply. TCC will continue to follow. .e Discharge Milestones and Delays Expected Date/Time: 06/17/[address] discharge order Complete med reconciliation Case mgmt discharge readiness Request transport PT discharge readiness Expected Discharge History Expected Date/Time Set By Reviewed At 06/17/2022 Vika Thompson RN 06/16/2022 7:40 AM TCC estimate 06/16/2022 Vika Thompson RN 06/15/2022 8:02 AM 06/16/2022 Mita Morton, DO 06/13/2022 4:03 PM 06/16/2022 Mita Morton, DO 06/13/2022 4:02 PM 06/16/2022 Eric Cintron MD 06/13/2022 3:32 PM Length of Stay (Days): 3 GMLOS: 2.7 * Care Plan - Fiordaliza Del Castillo RN - 06/16/2022 12:00 AM EDT The patient is Moderately Stable - Low risk of patient condition declining or worsening The patient's goals for the shift include Rest The clinical goals for the shift include Safety, rest Problem: Knowledge Deficit Goal: Patient/family/caregiver demonstrates understanding of disease process, treatment plan, medications, and discharge instructions Outcome: Progressing Problem: Potential for Compromised Skin Integrity Goal: Skin Integrity is Maintained or Improved Outcome: Progressing Goal: Nutritional status is improving Outcome: Progressing Problem: Urinary Incontinence Goal: Perineal skin integrity is maintained or improved Outcome: Progressing * Care Coordination - Vika Thompson RN - 06/15/2022 1:01 PM EDT Images from the original note were not included. Care Management Progress Note TRANSITIONAL CARE DAILY NOTE/UPDATES: Patient remains on 2E due to anemia. Clinical updates: patient on IV fluids, GI following. Discharge plan: TBD. Went to bedside to see if daughter was there, no family present, to review Snf list.Left voicemail on daughters phone with return number left. Discharge obstacles: none noted. TCC to continue to follow. Discharge Milestones and Delays Expected Date/Time: 06/16/[address] discharge order Complete med reconciliation Request transport Case mgmt discharge readiness Expected Discharge History Expected Date/Time Set By Reviewed At 06/16/2022 Vika Thompson RN 06/15/2022 8:02 AM 06/16/2022 Mita Morton, DO 06/13/2022 4:03 PM 06/16/2022 Mita Morton, DO 06/13/2022 4:02 PM 06/16/2022 Eric Cintron MD 06/13/2022 3:32 PM Length of Stay (Days): 2 GMLOS: 2.7 * Care Plan - Lennie Aguilar RN - 06/14/2022 3:17 PM EDT The patient is Moderately Stable - Low risk of patient condition declining or worsening The patient's goals for the shift include rest The clinical goals for the shift include remain free from falls Over the shift, the patient did make progress toward the above goals. Barriers to progression include weakness. Recommendations to address these barriers include increase mobility. * Home Care - Estelle Mitchell LPN - 06/13/2022 5:56 PM EDT Patient is currently active with [facility]. The patients current certification period will on 07/31/2022. The patient is currently receiving PT/OT/ST services through the agency. [employer] to continue to follow. [facility]aced [facility] * Care Coordination - Josey Mckeon RN - 06/13/2022 4:28 PM EDT Care Managment Initial Assessment Date: 06/13/2022 Patient Name: Prema Villalpando : 1940 Patient Information Source of Information: Patient, Patient System Developer Associate Manager Name/Contact Information: HOSSEIN CORNELL [phone] DAUGHTER AND DAUGHTER YAZ DAVIS [phone] Cognition/Language: WFL - Within Functional Limits Permission given to speak with patient business office representative/caregiver as indicated: Yes Confirmation of Payer with patient/family: Yes Payer Name: MMO : No Confirmation of Primary Care Physician: Confirmed PCP Name: DR. MORTON Seen in last 2 years?: Yes Primary Caregiver: Family If assistance needed, confirmed caregiver ready, willing and able to care for patient at discharge:Yes Confirmed with: AKI CATALAN Living Arrangements Current Residence: ([facility]) Number of Floors 1 Number of Entry Steps: 2 Bed/Bath Levels: Both first floor Facility: Facility Name: [facility] Plan to Return: Yes Lives with: Alone Support Systems: Children, Family members, Home care staff, Comments (Other) ([facility]) Activities of Daily Living Ambulation: Independent Bathing/Dressing: Independent Elimination/Continence/Toileting: Independent Feeding: Independent Who Assists with Activities of Daily Living: NA Instrumental Activities of Daily Living Prescription Coverage: Yes Pharmacy Used: [facility] Medication Management: Prescription pick-up Who assists with medication securing and setup?: DAUGHTER SECURES AND SETS UP MEDS Transportation/Shopping: Assistance Provider Transportation/Shopping Assistance Provider Name: AKI [facility] Transportation Mode: Car, Senior/disability transport service Needs Assistance with Transportation at Discharge: No (DAUGHTER) Meal Preparation: Assistance Provider Meal Prep Assistance Provider Name: DAUGHTER Laundry/Cleaning: Assistance Provider Laundry/Cleaning Assistance Provider Name: DAUGHTER Finances/Bill Paying: Assistance Provider Finances/Bill Payer Assistance Provider Name: DAUGHTER Communication: Independent Types of Care Services/Equipment Utilized Care Services: Skilled Home Health Services Care Services Provider Name: UNSURE IF THROUGH [facility] D[facility] Type: NA Durable Medical Equipment: Walker, Shower Seat, Glucometer Patient's Goal/Discharge Plan Patient expects to be discharged to: HOME WITH RESUMPTION OF PREVIOUS SERVICES Discharge Planning Actions: Continue to follow Patient's Choice Rights and [employer] and Collaborative Relationships Disclosed as Indicated for Post-Acute Care: NA Interdisciplinary Team Engagement: Home Health Care, PT/OT Social Work Referral for: Additional Information: Inpatient status from home with anemia. Admitted to [facility] for rehabilitation. Admissions orders are pending. Discharge preparation checklist reviewed with patient and her daughter Hossein. [facility] to her daughter and son in law. Is active with the [facility] M-F [phone]. Her daughter states she has occupational therapy that was seeing her at [facility] and was going to start with ST for swallowing. informatics physician liaison updated via [facility] and is following. Daughter uncertain if through [facility] or [facility]. Daughter assists patient with all household tasks and patient is independent in her adls. Does not anticipate any needs upon discharge and tentative discharge plan is home with resumption of previous services when medically stable. Will likely need pt/ot evals to assist with dc planning needs. .. Josey Mckeon RN documented in this encounterSAvita Health System Bucyrus [id number] Note* Care Coordination - Unknown Case Management - 06/16/2022 3:17 PM EDT Patient Choice Patient Name: PREMA VILLALPANDO Date of : 1940 All Providers Sent Referral Name: [facility]formerly [facility]) Phone: [phone] Address: [address] [place] [address] [facility], [id number] Note* Care Coordination - Unknown Case Management - 06/16/2022 3:17 PM EDT Patient Choice Patient Name: PREMA VILLALPANDO Date of : 1940 All Providers Sent Referral Name: [facility] (formerly [facility]) Phone: [phone] Address: [address] [place], [place] [id number] [facility], [id number] Note* Care Coordination - Vika Thompson RN - 06/16/2022 2:59 PM EDT Task sent to [facility] via Careport to complete [id number] and send it with dc paperwork and Covid results to [facility]. . [facility], [id number] Note* Care Coordination - Vika Thompson RN - 06/16/2022 2:59 PM EDT Task sent to [facility] via [employer]port to complete [id number] and send it with dc paperwork and Covid results to [facility]. . [facility], [id number] Note* Care Coordination - MARA Garcia - 06/16/2022 2:12 PM EDT Dc transportation arranged for 5:00 to [facility] in [place]. 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 Ambulance transport form completed. [facility], [id number] Note* Care Coordination - MARA Garcia - 06/16/2022 2:12 PM EDT Dc transportation arranged for 5:00 to [facility] in [place]. 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 Ambulance transport form completed. [facility], [id number] History of Present illness Narrative* ASHLY Castaneda - 06/16/2022 2:08 PM EDT Occupational Therapy Facility/Department: [facility] Occupational Therapy Treatment NAME: Prema Villalpando : 1940 Date of Service: 06/16/2022 Discharge Recommendations: Subacute/Shelter Facility, Continue to assess pending progress (vs HH with 24 hr SUP) Assessment REQUIRES OT FOLLOW-UP: Yes Performance deficits / Impairments: Decreased functional mobility , Decreased ADL status, DecreasedROM, Decreased strength, Decreased endurance, Decreased cognition, Decreased safe awareness, Decreased balance, Decreased posture Assessment: Pt in bed upon arrival, agreeable to OT. Pt unaware of urine all over pt and in bed d/tcognitive deficits. Pt completed bedmobility with no reports of dizziness with positonal changes. Pt was able to complete STS and static stand with SBA for safety. Pt was able to complete LB dressingwith figure four technique and SBA for safety with standing. Pt was able to complete functional transfer with SBA and v/c's for problem sloving. Pt is limited by mild instability, generalized weakness, low activity tolerance, cognitive deficits. Pt would continue to benefit from skilled OT therapy services to adapt to deficits and obtain overall health wellness. Rec SNF or C with 24/7 assist iffamily able to provide. Prognosis: Fair History: Anemia and BLE edema Exam: AM-PAC Patient Diagnosis(es): The primary encounter diagnosis was Anemia. Diagnoses of Hyponatremia and Hepatitis were also pertinent to this visit. has a past medical history of Anemia, Anxiety, GERD (gastroesophageal reflux disease), H/O heart artery stent (08/04/2018), History of blood transfusion, blood clots, Hyperlipidemia, and Hypertension. has a past surgical history that includes Upper gastrointestinal endoscopy (08/08/2018); Colonoscopy; Cholecystectomy (03/2019); Throat surgery (2013); Colonoscopy (03/07/2019); Colonoscopy (09/21/2018); Tubal ligation (1988); Eye surgery (Bilateral); and ERCP (02/15/2019). 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 Safety Judgement: Decreased awareness of need for assistance, Decreased awareness of need for safety Problem Solving: Assistance required to generate solutions, Assistance required to identify errors made, Decreased awareness of errors Insights: Not aware of deficits Initiation: Requires cues for all Sequencing: Requires cues for all Overall Orientation Status: Impaired Orientation Level: Oriented to person, Disoriented to situation, Disoriented to time, Disoriented to place Subjective General Patient Assessed for Rehabilitation Services: Yes Subjective Subjective: Pt in bed upon arrival, agreeable to OT, ok to see per RN General Comments Comments: Pt soaked in urine upon arrival d/t poor cognition. Patient Stated Goal: Patient was not cognitively aware and was unable to participate in goal setting at this time. Objective UE Dressing Assistance Level: Stand by assist, Set-up Skilled Clinical Factors: Pt was able to don gown seated EOB with set up for materials and SBA for safety, v/c's for problem sloving/sequencing. LE Dressing Assistance Level: Stand by assist, Set-up Skilled Clinical Factors: Pt was able to don depends with figure four technique, complete clothing mgmnt over BL hips with SBA for safety and set up for materials. Balance Sitting Balance: Modified independent Standing Balance: Stand by assistance Standing Balance Time: ~1 min Activity: clothing mgmnt Comment: Pt stoof EOB for clothing mgmnt with SBA for safety, no reports of dizziness or LOB standing balance. Bed mobility Supine to Sit: Stand by assistance Sit to Supine: Stand by assistance Scooting: Stand by assistance Comment: Pt completed all aspects of bed mobility at SBA for safety and v/c's for problem sloving/ initation of steps. No reports of dizziness with positonal changes, Transfers Stand Step Transfers: Contact guard assistance (Pt completed stand step transfer from bed to chair with CGA for steadiness and v/c's for problem sloving/sequencing of steps with good carry-over.) Sit to stand: Stand by assistance Stand to sit: Stand by assistance Transfer Comments: Pt completed x3 STS from EOB with SBA for safety and v/c's for proper hand-placement with proper fww. Plan Times per Week: 5 visits Current Treatment Recommendations: Strengthening, ROM, Balance Training, Functional Mobility Training, Endurance Training, Safety Education & Training, Patient/Caregiver Education & Training,Self-Care / ADL, Cognitive Reorientation, Equipment Evaluation, Education, & procurement, Home Management Training Safety Safety Devices in place: Yes Type of devices: All fall risk precautions in place, Gait belt, Patient at risk for falls, Left in bed, Call light within reach, Nurse notified, Bed alarm in place Restraints Initially in place: No AM-PAC Score AM-PAC Inpatient Daily Activity Raw Score: 18 ADL Inpatient CMS G-Code Modifier: CK Goals Encounter Problems Encounter Problems (Active) Balance Patient will maintain dynamic standing balance for 5 minutes with Mod I and FWW in order to demonstrate decreased risk of falling. (Not Addressed) Start: 06/14/22 Expected End: 06/20/22 Patient will maintain dynamic sitting balance for 5 minutes with Mod I in order to demonstrate improved postural control and prepare for out of bed mobility. (Not Addressed) Start: 06/14/22 Expected End: 06/20/22 Dressing Upper Extremities Patient will complete upper body dressing Mod I with no more than 1 verbal cue. (Progressing) Start: 06/14/22 Expected End: 06/20/22 Dressings Lower Extremities Patient will dress lower body Mod I and no more than 1 verbal cue. (Progressing) Start: 06/14/22 Expected End: 06/20/22 Grooming Patient will complete daily grooming tasks Mod I with no more than 1 verbal cue. (Not Addressed) Start: 06/14/22 Expected End: 06/20/22 Mobility Patient will demonstrate functional ambulation home distances with FWW and Mod I. (Not Addressed) Start: 06/14/22 Expected End: 06/20/22 Toileting Patient will complete toileting tasks at bathroom level with FWW and Mod I. (Not Addressed) Start: 06/14/22 Expected End: 06/20/22 Transfers Patient will complete functional transfer with FWW and Mod I in order to prepare for ambulation. (Progressing) Start: 06/14/22 Expected End: 06/20/22 Education Education Given To: Patient Education Provided: OT Role, Transfer Training, Equipment, Energy Conservation, Plan of Care, Fall Prevention Strategies, Orientation, ADL Adaptive Strategies Education Method: Verbal, Demonstration Barriers to Learning: Hearing, Cognition Education Outcome: Verbalized understanding, Unable to demonstrate understanding, Continued education needed Therapy Time Individual Co-treatment Time In 1326 Time Out 1348 Minutes 22 Timed Code Treatment Minutes: 22 Minutes (1 ADL) VITA Castaneda/Saul * Antonio Jimenez, PT - 06/16/2022 11:26 AM EDT Physical Therapy Facility/Department: [facility] Physical Therapy Daily Treatment Note NAME: Prema Villalpando : 1940 Date of Service: 06/16/2022 Discharge Recommendations: Subacute/Shelter Facility, Continue to assess pending progress (vs HHC with 24 hr SUP) PT Equipment Recommendations Equipment Needed: No Assessment Requires PT Follow-Up: Yes Assessment: Pt demo some improved mobility, remains with impaired cognition and poor safety awareness. She demo bed mobility SBA, transfer to FWW CGA-min A and ambulation with FWW and CGA. She is limited by endurance and general fatigue. Pt remains increased falls risk, SNF rec remains appropriate,if d/c home would need 24 hr SUP. Will continue to benefit from skilled therapy to promote mobilityand safety Patient Diagnosis(es): The primary encounter diagnosis was Anemia. Diagnoses of Hyponatremia and Hepatitis were also pertinent to this visit. has a past medical history of Anemia, Anxiety, GERD (gastroesophageal reflux disease), H/O heart artery stent (08/04/2018), History of blood transfusion, blood clots, Hyperlipidemia, and Hypertension. has a past surgical history that includes Upper gastrointestinal endoscopy (08/08/2018); Colonoscopy; Cholecystectomy (03/2019); Throat surgery (2013); Colonoscopy (03/07/2019); Colonoscopy (09/21/2018); Tubal ligation (1988); Eye surgery (Bilateral); and ERCP (02/15/2019). Restrictions Restrictions/Precautions Restrictions/Precautions: General Precautions, Fall Risk Required Braces or Orthoses?: No Vision/Hearing Vision: Within Functional Limits Hearing: Impaired Hearing Exceptions: Hard of hearing/hearing concerns, Bilateral hearing aid Subjective General Chart Reviewed: Yes Patient Assessed for Rehabilitation Services: Yes Response To Previous Treatment: Patient with no complaints from previous session. Family / Caregiver Present: No Follows Commands: Impaired General Comment Comments: Per RN pt okay for therapy Subjective Subjective: Pt pleasantly confused, agree to PT Pain Assessment Pain Assessment: No/denies pain Cognition/Orientation Overall Cognitive Status: Exceptions Following Commands: Follows one step commands with repetition, Follows one step commands with increased time Attention Span: Attends with cues to redirect Memory: Decreased recall of biographical Information, Decreased recall of recent events, Decreased short term memory, Decreased [facility] memory Safety Judgement: Decreased awareness of need for assistance, Decreased awareness of need for safety Problem Solving: Assistance required to generate solutions, Assistance required to identify errors made, Decreased awareness of errors Insights: Not aware of deficits Initiation: Requires cues for all Sequencing: Requires cues for all Overall Orientation Status: Impaired Orientation Level: Oriented to person, Disoriented to situation, Disoriented to time, Disoriented to place Objective Gross Assessment: Yes AROM: Generally decreased, functional Strength: Generally decreased, functional Tone: Normal Sensation: Intact Bed mobility Supine to Sit: Stand by assistance Sit to Supine: Stand by assistance Scooting: Stand by assistance Comment: Pt denies dizziness. She require increased cues for initiation and sequencing, require increased time for processing but overall SBA. Transfers Sit to Stand: Contact guard assistance, Minimal Assistance Stand to sit: Contact guard assistance Comment: Pt complete functional transfer from bed to FWW x1 with CGA, from toilet with min A x1. Therapist cues pt for hand and foot placement and upright trunk, cues for safety and sequencing. Therapist assisted in don/doffing brief. She demo no LOB, good eccentric control to sit with cues for hand placement Ambulation Ambulation: Yes Ambulation 1 Surface 1: Level tile Device 1: Rolling walker Assistance 1: Contact guard Quality of Gait 1: No LOB, shuffling, slow jimmy Quality of Gait Comment 1: Pt ambulate with FWW and CGA. She demo short shuffling gait with no LOB,require increased assist with walker management, safety and obstacle negotiation. She demo decreased jimmy and step length Distance (ft) 1: ~20 ft x2 Comments 1: Therapist provide assist for walker management with obstacle negotiation, cue for safety and uprigh trunk posture. Pt limited by decreased safety awareness Balance Posture: Good Sitting - Static: Good Sitting - Dynamic: Good Standing - Static: Fair Standing - Dynamic: Fair, - Plan Times per Week: 4 visits Current Treatment Recommendations: Strengthening, Balance Training, Functional Mobility Training, Endurance Training, Stair training, Gait Training, Patient/Caregiver Education & Training, SafetyEducation & Training, Transfer Training, Pain Management, Positioning, Home Exercise Program, Equipment Evaluation, Education, & procurement Plan Comment: Plan of care supervsion transferred to Rehab Servies Dept physical therapist Safety Safety Devices Safety Devices in Place: Yes Type of Devices: Nurse notified, All fall risk precautions in place, Patient at risk for falls, Bedalarm in place, Call light within reach, Left in bed, Gait belt AM-PAC Score AM-PAC Inpatient Mobility Raw Score: 16 Mobility Inpatient CMS G-Code Modifier: CK Goals Encounter Problems Encounter Problems (Active) Exercise Patient will complete lower extremity exercises for 3 sets / 10 reps in order to improve strength and activity tolerance for mobility. (Not Addressed) Start: 06/14/22 Expected End: 06/19/22 Mobility Patient will ambulate 100 feet with SBA and rolling walker in order to improve safety and independence with mobility. (Progressing) Start: 06/14/22 Expected End: 06/19/22 Transfers Patient will perform bed mobility with supervsion in order to improve independence and prepare for out of bed mobility. (Progressing) Start: 06/14/22 Expected End: 06/19/22 Patient will complete sit to stand transfer with SBA to wheeled walker in order to improve safety and prepare for out of bed mobility. (Progressing) Start: 06/14/22 Expected End: 06/19/22 Education Education Given To: Patient Education Provided: Goals, PT Role, Transfer Training, Gait Training, Plan of Care, General Safety,Orientation, Energy Conservation, Functional Mobility Training, Equipment, Precautions, Injury Prevention Education Provided Comments: Goals and/or treatment plan was established and collaberated with patient Education Method: Demonstration, Verbal Barriers to Learning: Cognition Education Outcome: Continued education needed Therapy Time Individual Co-treatment Time In 1009 Time Out 1025 Minutes 16 Timed Code Treatment Minutes: 13 Minutes (gait x1) Antonio Jimenez PT * Jersey Rollins MD - 06/15/2022 11:10 AM EDT Images from the original note were not included. Progress Note SUBJECTIVE: No acute events overnight. Tolerating diet. Hgb stable. US normal. LFT's improving. Medications @MEDCMED@ OBJECTIVE VITALS: BP 126/57 (BP Location: Right arm, Patient Position: Lying) Pulse 83 Temp 36.5 C (97.7 F) (Temporal) Resp 18 SpO2 94% TEMPERATURE: Current - Temp: 36.5 C (97.7 F); Max - Temp Av.4 C (97.6 F) Min: 36 C (96.8 F) Max: 36.7 C (98.1 F) RESPIRATIONS RANGE: Resp Av.9 Min: 14 Max: 18 PULSE RANGE: Pulse Av Min: 69 Max: 86 BLOOD PRESSURE RANGE: Systolic (24hrs), Av , Min:124 , Max:161 ; Diastolic (24hrs), Av, Min:56, Max:80 PULSE OXIMETRY RANGE: SpO2 Av.9 % Min: 94 % Max: 98 % 24HR INTAKE/OUTPUT: Intake/Output Summary (Last 24 hours) at 06/15/2022 1110 Last data filed at 06/15/2022 0901 Gross per 24 hour Intake 3887.33 ml Output -- Net 3887.33 ml GENERAL: Pleasant and NAD. HEENT: NCAT, PERRLA, EOMI, Scleral anicteric. CV: RRR, NL S1/S2, no murmurs. LUNGS: CTA b/l. No W/R/R. Abdomen: + BS, soft, non-tender and non-distended. No hernia. Neurologic: A&O x 1, CN II-XII grossly intact. No asterixis. Non-focal. Psych: Normal affect and speech. Data Recent blood work, radiologic study and endoscopic study were reviewed with the patient. CBC: Recent Labs 06/13/22 1443 06/14/22 0531 06/15/22 0337 WBC 6.9 4.6 6.1 HGB 9.5* 8.9* 9.1* HCT 28.7* 27.0* 27.5* PLT 188 171 165 HEPATIC: Recent Labs 06/14/22 0531 06/15/22 0337 AST 218* 189* ALT 152* 136* BILITOT 0.3 0.2 ALKPHOS 141* 221* LIPASE/AMYLASE: No results for input(s): AMYLASE, LIPASE in the last 72 hours. LACTATE: No lab exists for component: LACTA BNP: Recent Labs 06/13/22 1443 BNP 575* INR: Recent Labs 06/13/22 1443 INR 1.1 RUQ US (06/15/22): IMPRESSION: Nonspecific coarsened heterogeneous echotexture of the liver without focal lesion identified. Correlation with LFTs is recommended. Trace ascites. ASSESSMENT AND PLAN Anemia - Hgb 8.9 but stable (previously 11-12), no overt bleeding, low normal MCV, EGD 02/2022 with esophageal stricture s/p dilation, ferritin 20 (low iron levels) Elevated LFT's - AST 311, ALT 185, Alk phos 176 now all down-trending, negative hepatitis panel, RUQ US normal Lower extremity swelling - continue to trend LFT's (improving since admission) - would hold off on inpatient colonoscopy (could consider outpatient colonoscopy) - continue to trend Hgb while admitted GI will sign off, please call with any questions. * Mita Morton DO - 06/15/2022 9:20 AM EDT Department of Family Medicine Daily Progress Note Subjective Chief Complaint (required for billing): Anemia Pt doing well this am ate 100% of her breakfast. Her us was negative. Daughter at the bedside questions answered. ROS: Review of Systems Objective BP 126/57 (BP Location: Right arm, Patient Position: Lying) Pulse 72 Temp 36.5 C (97.7 F) (Temporal) Resp 18 SpO2 96% Physical Exam Pt is alert and oriented x 2 Heent wnl Heart regular Lungs ctab Abd benign Ext no edema Labs Notable Labs: elevated lfts Current Medications Medication orders reviewed, see MAR Assessment/Plan Principal Problem: Anemia AMS Elevated lfts Anemia DM 2 HTN HPL Plan Iv venofer Us ruq neg lfts trending stacy Needs snf placement FEN:Adult diet Regular; 5 carb choices (75 gm/meal) GI prophylaxis: PPI ordered DVT prophylaxis: scds # Anticipated Discharge - Date - 1-2 d - Location - [facility] - Pending the following - MITA MORTON DO 06/15/22 9:20 AM * Elvie Skelton - 06/15/2022 8:26 AM EDT Nutrition rescreen completed. Patient assigned a level 1. * Franklin Aviles PT - 06/14/2022 3:11 PM EDT Physical Therapy Facility/Department: [address] Physical Therapy Initial Evaluation NAME: Prema Villalpando : 1940 Date of Service: 06/14/2022 Discharge Recommendations: Subacute/Shelter Facility PT Equipment Recommendations Equipment Needed: No Assessment Requires PT Follow-Up: Yes Assessment: Patient admiited with BLE and anemia . Patient is SBA with bed mobility ,transfers sit-stand with CGA ,ambulated with fww 40 ft x1 and confused patient is unsafe to return home thus benefit from skilled PT to maximize functional mobility Performance Deficits/Impairments: Decreased strength, Decreased balance, Decreased functional mobility , Decreased safe awareness, Decreased cognition Activity Tolerance Comment: fair Decision Making: Medium Complexity History: Pt admitted 06/13 with anemia and BLE edema Exam: AM-PAC Clinical Presentation: Patient has multiple comorbities along with decrease cognition and confusionwith decrease safety,gait ,transfers ,thus patient will benefit from skilled PT to maximize function Barriers to Learning: cognition Barriers to Learning: cognition Activity Tolerance Activity Tolerance: Patient limited by cognitive status Patient Diagnosis(es): The primary encounter diagnosis was Anemia. Diagnoses of Hyponatremia and Hepatitis were also pertinent to this visit. has a past medical history of Anemia, Anxiety, GERD (gastroesophageal reflux disease), H/O heart artery stent (08/04/2018), History of blood transfusion, blood clots, Hyperlipidemia, and Hypertension. has a past surgical history that includes Upper gastrointestinal endoscopy (08/08/2018); Colonoscopy; Cholecystectomy (03/2019); Throat surgery (2013); Colonoscopy (03/07/2019); Colonoscopy (09/21/2018); Tubal ligation (1988); Eye surgery (Bilateral); and ERCP (02/15/2019). Restrictions Restrictions/Precautions Restrictions/Precautions: General Precautions, Fall Risk Required Braces or Orthoses?: No Vision/Hearing Vision: Within Functional Limits Hearing: Impaired Hearing Exceptions: Hard of hearing/hearing concerns, Bilateral hearing aid Cognition/Orientation Overall Cognitive Status: Exceptions Arousal/Alertness: Inconsistent responses to stimuli Following Commands: Follows one step commands with repetition, Inconsistently follows commands Attention Span: Attends with cues to redirect Memory: Decreased recall of biographical Information, Decreased recall of recent events, Decreased short term memory, Decreased [facility] memory Safety Judgement: Decreased awareness of need for assistance, Decreased awareness of need for safety Problem Solving: Assistance required to generate solutions, Assistance required to identify errors made, Decreased awareness of errors Insights: Not aware of deficits Initiation: Requires cues for all Sequencing: Requires cues for all Overall Orientation Status: Impaired Orientation Level: Oriented to person, Disoriented to situation, Disoriented to time, Disoriented to place, Disoriented to person Subjective General Chart Reviewed: Yes Patient Assessed for Rehabilitation Services: Yes Follows Commands: Impaired Subjective Subjective: Willng to participate Patient Stated Goal: Patient was not cognitively aware and was unable to participate in goal setting at this time. Pain Assessment Pain Assessment: No/denies pain Pain Score: 0 - No pain Social/Functional History Social/Functional History Lives With: Alone Type of Home: Trailer (daughter lives next door) Home Layout: One level Home Access: Stairs to enter with rails Entrance Stairs - Number of Steps: 2 Entrance Stairs - Rails: Right Bathroom Shower/Tub: Walk-in shower Bathroom Toilet: Standard Bathroom Equipment: Shower chair Bathroom Accessibility: Not accessible Home Equipment: Rolling walker Receives Help From: Family ADL Assistance: Independent Homemaking Assistance: Needs assistance Homemaking Responsibilities: No Ambulation Assistance: Independent With device?: No Device: rolling walker Transfer Assistance: Independent Active Leasing Agent: No Patient's Leasing Agent Info: Per pt report her daughter drives her. Additional Comments: Leanna wang during day ,adult day care Objective Observation/Palpation Posture: Fair Observation: Pt tele and IV intact AROM RLE (degrees) RLE AROM: WFL AROM LLE (degrees) LLE AROM : WFL Strength RLE Strength RLE: WFL Comment: 4-/5 Strength LLE Strength LLE: WFL Comment: 4-/5 Tone RLE RLE Tone: Normotonic Tone LLE LLE Tone: Normotonic Sensation Overall Sensation Status: Intact Bed mobility Supine to Sit: Stand by assistance Sit to Supine: Stand by assistance Scooting: Stand by assistance Comment: denies dizziness Transfers Sit to Stand: Contact guard assistance Stand to sit: Contact guard assistance Comment: cues for safety Ambulation Ambulation: Yes Ambulation 1 Surface 1: Level tile Device 1: Rolling walker Assistance 1: Contact guard Quality of Gait 1: reciprocal stepping, equal step length, slow jimmy Quality of Gait Comment 1: mild forward posture reciprocal pattern cues for safety Distance (ft) 1: 40 ft Comments 1: cues for safety and walker management Balance Posture: Fair Sitting - Static: Good, - Sitting - Dynamic: Fair, + Standing - Static: Fair, + Standing - Dynamic: Fair Plan Times per Week: 5 visist Times per Day: Daily Current Treatment Recommendations: Strengthening, Balance Training, Functional Mobility Training, Endurance Training, Stair training, Gait Training, Patient/Caregiver Education & Training, SafetyEducation & Training, Transfer Training Plan Comment: Plan of care supervsion transferred to Rehab Servies Dept physical therapist Safety Safety Devices Safety Devices in Place: Yes Type of Devices: Gait belt, Bed alarm in place, Call light within reach, Positioning belt, Patient at risk for falls, All fall risk precautions in place, Left in bed Restraints Restraints Initially in Place: No AM-PAC Score AM-PAC Inpatient Mobility Raw Score: 17 Mobility Inpatient [facility] G-Code Modifier: CK Goals Encounter Problems Encounter Problems (Active) Exercise Patient will complete lower extremity exercises for 3 sets / 10 reps in order to improve strength and activity tolerance for mobility. Start: 06/14/22 Expected End: 06/19/22 Mobility Patient will ambulate 100 feet with SBA and rolling walker in order to improve safety and independence with mobility. Start: 06/14/22 Expected End: 06/19/22 Transfers Patient will perform bed mobility with supervsion in order to improve independence and prepare for out of bed mobility. Start: 06/14/22 Expected End: 06/19/22 Patient will complete sit to stand transfer with SBA to wheeled walker in order to improve safety and prepare for out of bed mobility. Start: 06/14/22 Expected End: 06/19/22 Education Education Given To: Patient Education Provided: Goals, PT Role, Transfer Training, Gait Training, Plan of Care, General Safety Education Provided Comments: Goals and/or treatment plan was established and collaberated with patient /family Education Method: Demonstration, Verbal Barriers to Learning: Cognition Education Outcome: Continued education needed Therapy Time Individual Co-treatment Time In 1422 Time Out 1434 Minutes 12 Franklin Aviles PT * Robyn Bernal, OT - 06/14/2022 1:51 PM EDT Occupational Therapy Facility/Department: [address] Occupational Therapy Initial Evaluation NAME: Prema Villalpando : 1940 Date of Service: 06/14/2022 Discharge Recommendations: Subacute/Shelter Facility OT Equipment Recommendations Equipment Needed: No Assessment REQUIRES OT FOLLOW-UP: Yes Performance deficits / Impairments: Decreased functional mobility , Decreased ADL status, DecreasedROM, Decreased strength, Decreased endurance, Decreased cognition, Decreased safe awareness, Decreased balance, Decreased posture Assessment: Pt admitted 06/13 with anemia and BLE edema. Pt is a poor historian and previous information was retrieved from chart review. Per pt she was able to complete FB dressing independently and ambulated with a FWW, but required assistance with bathing tasks. Pt reported that her daughter assists with IADLs. Pt currently requires verbal cues and Min-Mod A for initiation and sequencing of all ADLs, and SBA for functional transfers and mobility with a FWW. Pt is currently limited d/t decreased cognition, strength and endurance, and decreased safety awareness. Pt would benefit from skilled OT services to increase safety, strength and endurance to improve participation in daily occupations.Rec d/c SNF. Prognosis: Fair Decision Making: Medium Complexity History: Anemia and BLE edema Exam: AM-PAC Assistance / Modification: Mod A-SBA Activity Tolerance Activity Tolerance: Patient Tolerated treatment well, Treatment limited secondary to decreased cognition Patient Diagnosis(es): The primary encounter diagnosis was Anemia. Diagnoses of Hyponatremia and Hepatitis were also pertinent to this visit. has a past medical history of Anemia, Anxiety, GERD (gastroesophageal reflux disease), H/O heart artery stent (08/04/2018), History of blood transfusion, blood clots, Hyperlipidemia, and Hypertension. has a past surgical history that includes Upper gastrointestinal endoscopy (08/08/2018); Colonoscopy; Cholecystectomy (03/2019); Throat surgery (2013); Colonoscopy (03/07/2019); Colonoscopy (09/21/2018); Tubal ligation (1988); Eye surgery (Bilateral); and ERCP (02/15/2019). Restrictions Restrictions/Precautions Restrictions/Precautions: General Precautions, Fall Risk Required Braces or Orthoses?: No Vision/Hearing Vision: Within Functional Limits Hearing: Impaired Hearing Exceptions: Hard of hearing/hearing concerns, Bilateral hearing aid Cognition/Orientation Overall Cognitive Status: Exceptions Arousal/Alertness: Inconsistent responses to stimuli Following Commands: Follows one step commands with repetition, Inconsistently follows commands Attention Span: Attends with cues to redirect Memory: Decreased recall of biographical Information, Decreased recall of recent events, Decreased short term memory, 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 Safety Judgement: Decreased awareness of need for assistance, Decreased awareness of need for safety Problem Solving: Assistance required to generate solutions, Assistance required to identify errors made, Decreased awareness of errors Insights: Not aware of deficits Initiation: Requires cues for all Sequencing: Requires cues for all Overall Orientation Status: Impaired Orientation Level: Oriented to person, Disoriented to situation, Disoriented to time, Disoriented to place, Disoriented to person (Pt could only provide her first name and was unable to provide last name, where she was, year, or situation.) Subjective General Chart Reviewed: Yes Patient Assessed for Rehabilitation Services: Yes Family / Caregiver Present: No Subjective Subjective: Pt pleasant and cooperative, okay to see per RN. Patient Stated Goal: Pt reports wanting to return home Pain Assessment Pain Assessment: No/denies pain Oxygen Therapy Oxygen Therapy: None (Room air) Social/Functional History Social/Functional History Lives With: Alone Type of Home: Trailer (Daughter and son-in-law live in trailer next door per chart review.) Home Layout: One level Home Access: Stairs to enter with rails Entrance Stairs - Number of Steps: 2 Entrance Stairs - Rails: Right Bathroom Shower/Tub: Walk-in shower (Per pt, pt poort historian) Bathroom Toilet: Standard Bathroom Equipment: Shower chair Bathroom Accessibility: Not accessible Home Equipment: Rolling walker Receives Help From: Family ADL Assistance: Independent Homemaking Assistance: Needs assistance Homemaking Responsibilities: No Ambulation Assistance: Independent With device?: Yes Device: rolling walker Transfer Assistance: Independent Active Leasing Agent: No Patient's Leasing Agent Info: Per pt report her daughter drives her. Additional Comments: Majority of home set-rup retrieved from chart review, pt is a poor historian. Objective Gross Assessment: Yes AROM: Generally decreased, functional PROM: Generally decreased, functional Strength: Generally decreased, functional Coordination: Generally decreased, functional Tone: Normal Sensation: Intact Observation/Palpation Posture: Fair Observation: Pt tele and IV intact Balance Sitting Balance: Modified independent Standing Balance: Stand by assistance Standing Balance Comment: Pt sat EOB ~1 min with no LOB or c/o pain or dizziness Mod I. Pt stood with FWW ~3 kristofer with SBA talking with , she had no LOB or c/o pain or dizziness. Functional Mobility Functional - Mobility Device: Rolling Walker Activity: To/from bathroom Assist Level: Stand by assistance Functional Mobility Comments: Pt completed functional mobility with FWW with SBA for safety as pt is impulsive and requires mod verbal cues for sequencing with FWW and is mildly unsteady but had no true LOB ambulating home distances to and from the bathroom. Toilet Transfers Toilet - Technique: Ambulating Equipment Used: Standard toilet Toilet Transfer: Stand by assistance Toilet Transfers Comments: Pt completed toilet transfer with FWW with SBA for safety and verbal cues for proper hand placement with FWW. Pt had no LOB or c/o pain or dizziness. ADL Feeding: Modified independent , Setup, Increased time to complete Grooming: Supervision, Setup, Verbal cueing, Increased time to complete UE Bathing: Minimal assistance, Moderate assistance, Verbal cueing LE Bathing: Minimal assistance, Moderate assistance, Verbal cueing, Increased time to complete UE Dressing: Minimal assistance, Verbal cueing, Increased time to complete LE Dressing: Minimal assistance, Verbal cueing, Increased time to complete Toileting: Minimal assistance, Contact guard assistance, Increased time to complete Additional Comments: Pt reports prior independence with all ADLs and receiving assistance from her daughter for bathing Pt currently requires cues for all ADL activities. She completed bathroom leveltoiletting with verbal cues and FWW. Pt required verbal cues to pull brief down and to back up to the toilet all the way prior to sitting as well as to perform pericare. Pt then required Max verbal cu es for hand hygiene at the sinkand to bring FWW with her. Pt required Max A for new brief management. Pt able to adjust socks sitting in bed with Min A for LLE. Tone RUE RUE Tone: Normotonic Tone LUE LUE Tone: Normotonic Coordination Movements Are Fluid And Coordinated: Yes Bed mobility Supine to Sit: Modified independent Sit to Supine: Modified independent Scooting: Modified independent Comment: Denies dizziness, pt completed bed mobility with Mod I and no vc adn no c/o dizziness. Transfers Sit to stand: Stand by assistance Stand to sit: Stand by assistance Transfer Comments: Pt completed transfers to FWW with SBA for safety and demos proper hand placement with FWW. Vision - Basic Assessment Prior Vision: No visual deficits Perception Overall Perceptual Status: Impaired Initiation: Cues to initiate tasks Sensation Overall Sensation Status: Intact (Per pt report) LUE PROM (degrees) LUE PROM: WFL LUE AROM (degrees) LUE AROM : WFL RUE PROM (degrees) RUE PROM: WFL RUE AROM (degrees) RUE AROM : WFL LUE Strength Gross LUE Strength: WFL RUE Strength Gross RUE Strength: WFL Plan Times per Week: 6 visits # of visits: 6 Current Treatment Recommendations: Strengthening, ROM, Balance Training, Functional Mobility Training, Endurance Training, Safety Education & Training, Patient/Caregiver Education & Training,Self-Care / ADL, Cognitive Reorientation, Equipment Evaluation, Education, & procurement, Home Management Training Safety Safety Devices in place: Yes Type of devices: All fall risk precautions in place, Gait belt, Patient at risk for falls, Left in bed, Call light within reach, Nurse notified, Bed alarm in place Restraints Initially in place: No AM-PAC Score AM-PAC Inpatient Daily Activity Raw Score: 18 ADL Inpatient CMS G-Code Modifier: CK Goals Encounter Problems Encounter Problems (Active) Balance Patient will maintain dynamic standing balance for 5 minutes with Mod I and FWW in order to demonstrate decreased risk of falling. Start: 06/14/22 Expected End: 06/20/22 Patient will maintain dynamic sitting balance for 5 minutes with Mod I in order to demonstrate improved postural control and prepare for out of bed mobility. Start: 06/14/22 Expected End: 06/20/22 Dressing Upper Extremities Patient will complete upper body dressing Mod I with no more than 1 verbal cue. Start: 06/14/22 Expected End: 06/20/22 Dressings Lower Extremities Patient will dress lower body Mod I and no more than 1 verbal cue. Start: 06/14/22 Expected End: 06/20/22 Grooming Patient will complete daily grooming tasks Mod I with no more than 1 verbal cue. Start: 06/14/22 Expected End: 06/20/22 Mobility Patient will demonstrate functional ambulation home distances with FWW and Mod I. Start: 06/14/22 Expected End: 06/20/22 Toileting Patient will complete toileting tasks at bathroom level with FWW and Mod I. Start: 06/14/22 Expected End: 06/20/22 Transfers Patient will complete functional transfer with FWW and Mod I in order to prepare for ambulation. Start: 06/14/22 Expected End: 06/20/22 Education Education Given To: Patient Education Provided: OT Role, Transfer Training, Equipment, Energy Conservation, Plan of Care, Fall Prevention Strategies, Orientation, ADL Adaptive Strategies Education Method: Verbal, Demonstration Barriers to Learning: Hearing, Cognition Education Outcome: Verbalized understanding, Unable to demonstrate understanding, Continued education needed Therapy Time Individual Co-treatment Time In 1230 Time Out 1254 Minutes 24 Timed Code Treatment Minutes: 8 Minutes (ADLx1) POC supervision transferred to rehab service department occupational therapist. Radha Bernal OT documented in this [facility]05-09-2023 Note* Care Coordination - Alex Delatorre - 06/16/2022 11:02 AM EDT Referral placed to [facility] per [facility] request. Await review and response regarding ability to accept. TCC notified. [facility] [id number] Note* Care Coordination - Alex Delatorre - 06/16/2022 11:02 AM EDT Referral placed to [facility] per TCC request. Await review and response regarding ability to accept. TCC notified. [facility] [id number] Note* Care Coordination - Vika Thompson RN - 06/16/2022 10:54 AM EDT Images from the original note were not included. Care Management Progress Note Secure message from Dr. Morton patient is ready for SNF placement. DaughterHossein, called and gave choice of [facility] in [place]. Task sent to [facility] via [facility] referral to above. Will watch for reply. TCC will continue to follow. .e Discharge Milestones and Delays Expected Date/Time: 06/17/[address] discharge order Complete med reconciliation Case mgmt discharge readiness Request transport PT discharge readiness Expected Discharge History Expected Date/Time Set By Reviewed At 06/17/2022 Vika Thompson RN 06/16/2022 7:40 AM TCC estimate 06/16/2022 Vika Thompson RN 06/15/2022 8:02 AM 06/16/2022 Mita Morton DO 06/13/2022 4:03 PM 06/16/2022 Mita Morton DO 06/13/2022 4:02 PM 06/16/2022 Eric Cintron MD 06/13/2022 3:32 PM Length of Stay (Days): 3 GMLOS: 2.7 [facility] [id number] Note* Care Coordination - Vika Thompson RN - 06/16/2022 10:54 AM EDT Images from the original note were not included. Care Management Progress Note Secure message from Dr. Morton patient is ready for SNF placement. DaughterHossein, called and gave choice of [facility] in [place]. Task sent to [facility] via [facility] referral to above. Will watch for reply. TCC will continue to follow. .e Discharge Milestones and Delays Expected Date/Time: 06/17/[address] discharge order Complete med reconciliation Case mgmt discharge readiness Request transport PT discharge readiness Expected Discharge History Expected Date/Time Set By Reviewed At 06/17/2022 Vika Thompson RN 06/16/2022 7:40 AM TCC estimate 06/16/2022 Vika Thompson RN 06/15/2022 8:02 AM 06/16/2022 Mita Morton, DO 06/13/2022 4:03 PM 06/16/2022 Mita Morton, DO 06/13/2022 4:02 PM 06/16/2022 Eric Cintron MD 06/13/2022 3:32 PM Length of Stay (Days): 3 GMLOS: 2.7 [facility] [id number] Nurse Note* Fiordaliza Del Castillo RN - 06/16/2022 6:04 AM EDT This nurse attempted to call both of the patients' daughters at this time to obtain a breakfast order for the patient. Both numbers went straight to voicemail. [facility] [id number] Nurse Note* Fiordaliza Del Castillo RN - 06/16/2022 6:04 AM EDT This nurse attempted to call both of the patients' daughters at this time to obtain a breakfast order for the patient. Both numbers went straight to voicemail. * Fiordaliza Del Castillo RN - 06/16/2022 5:45 AM EDT This RN and Esme CHUAT performed a complete bed bath with hair washing and skin care at this time. All new linens including gown, body bathed, hair washed, lotion applied, barrier cream applied, incontinence brief, and pillowed positioning. ] documented in this [facility]05-09-2023 Nurse Note* Fiordaliza Del Castillo RN - 06/16/2022 5:45 AM EDT This RN and Esme CHUAT performed a complete bed bath with hair washing and skin care at this time. All new linens including gown, body bathed, hair washed, lotion applied, barrier cream applied, incontinence brief, and pillowed positioning. ] [facility] [id number] Plan of care note* Care Plan - Fiordaliza Del Castillo RN - 06/16/2022 12:00 AM EDT The patient is Moderately Stable - Low risk of patient condition declining or worsening The patient's goals for the shift include Rest The clinical goals for the shift include Safety, rest Problem: Knowledge Deficit Goal: Patient/family/caregiver demonstrates understanding of disease process, treatment plan, medications, and discharge instructions Outcome: Progressing Problem: Potential for Compromised Skin Integrity Goal: Skin Integrity is Maintained or Improved Outcome: Progressing Goal: Nutritional status is improving Outcome: Progressing Problem: Urinary Incontinence Goal: Perineal skin integrity is maintained or improved Outcome: Progressing [facility] [id number] Note* Care Coordination - Vika Thompson RN - 06/15/2022 1:01 PM EDT Images from the original note were not included. Care Management Progress Note TRANSITIONAL CARE DAILY NOTE/UPDATES: Patient remains on 2E due to anemia. Clinical updates: patient on IV fluids, GI following. Discharge plan: TBD. Went to bedside to see if daughter was there, no family present, to review Snf list.Left voicemail on daughters phone with return number left. Discharge obstacles: none noted. TCC to continue to follow. Discharge Milestones and Delays Expected Date/Time: 06/16/[address] discharge order Complete med reconciliation Request transport Case mgmt discharge readiness Expected Discharge History Expected Date/Time Set By Reviewed At 06/16/2022 Vika Thompson RN 06/15/2022 8:02 AM 06/16/2022 Mita Morton, DO 06/13/2022 4:03 PM 06/16/2022 Mita Morton, DO 06/13/2022 4:02 PM 06/16/2022 Eric Cintron MD 06/13/2022 3:32 PM Length of Stay (Days): 2 GMLOS: 2.7 [facility] [id number] Note* Care Coordination - Vika Thompson RN - 06/15/2022 1:01 PM EDT Images from the original note were not included. Care Management Progress Note TRANSITIONAL CARE DAILY NOTE/UPDATES: Patient remains on 2E due to anemia. Clinical updates: patient on IV fluids, GI following. Discharge plan: TBD. Went to bedside to see if daughter was there, no family present, to review Snf list.Left voicemail on daughters phone with return number left. Discharge obstacles: none noted. TCC to continue to follow. Discharge Milestones and Delays Expected Date/Time: 06/16/[address] discharge order Complete med reconciliation Request transport Case mgmt discharge readiness Expected Discharge History Expected Date/Time Set By Reviewed At 06/16/2022 Vika Thompson RN 06/15/2022 8:02 AM 06/16/2022 Mita Morton DO 06/13/2022 4:03 PM 06/16/2022 Mita Morton DO 06/13/2022 4:02 PM 06/16/2022 Eric Cintron MD 06/13/2022 3:32 PM Length of Stay (Days): 2 GMLOS: 2.7 [facility] [id number] Plan of care note* Care Plan - Lennie Aguilar RN - 06/14/2022 3:17 PM EDT The patient is Moderately Stable - Low risk of patient condition declining or worsening The patient's goals for the shift include rest The clinical goals for the shift include remain free from falls Over the shift, the patient did make progress toward the above goals. Barriers to progression include weakness. Recommendations to address these barriers include increase mobility. [facility] [id number] Consult note* Jersey Rollins MD - 06/14/2022 1:43 PM EDTAssociated Order(s): Inpatient consult to Gastroenterology Images from the original note were not included. GI CONSULTATION Patient: Prema Villalpando : 1940 Primary Care Physician: Lu Marshall [facility] Inpatient consult to Gastroenterology Consult performed by: Jersey Rollins MD Consult ordered by: Mita Morton DO CHIEF COMPLAINT: elevated LFT's/anemia HISTORY OF PRESENT ILLNESS: 81 yo female with PMH below whom GI is consulted for anemia and elevated LFT's. Patient is a poor historian. History obtained from chart review. Came to the hospital for lower extremity swelling. Found to have a Hgb 8.9 (previously 11-12) and elevated LFT's (AST 311 -> 218; ALT 185 -> 152; Alk phos 176 -> 141), normal TB. Hepatitis panel negative. RUQ US ordered. Recent EGD 02/[address] Byrd for dysphagia with dilation of esophageal stricture with TTS 10-11-12. Biopsies positive for EOE. Unsure when last colonoscopy was completed (mentions 2018 or 2019). PAST MEDICAL HISTORY: Past Medical History: Diagnosis Date Anemia Anxiety GERD (gastroesophageal reflux disease) H/O heart artery stent 08/04/2018 History of blood transfusion Hx of blood clots Hyperlipidemia Hypertension PAST SURGICAL HISTORY: Past Surgical History: Procedure Laterality Date CHOLECYSTECTOMY 03/2019 COLONOSCOPY COLONOSCOPY 03/07/2019 stent removal COLONOSCOPY 09/21/2018 ERCP (HISTORICAL) 02/15/2019 EYE SURGERY Bilateral cataract THROAT SURGERY 2014 TUBAL LIGATION 1989 UPPER GASTROINTESTINAL ENDOSCOPY 08/08/2018 Dr [facility] FAMILY HISTORY: Family History Problem Relation Name Age of Onset High Blood Pressure Mother Heart disease Brother Cancer Brother Coronary artery disease Brother High Blood Pressure Brother Diabetes Brother SOCIAL HISTORY: TOBACCO: reports that she has never smoked. She has never used smokeless tobacco. ETOH: has no history on file for alcohol use. DRUGS: has no history on file for drug use. Medications: Prior to Admission medications Medication Sig Start Date End Date Taking? Authorizing Provider aspirin 81 MG EC tablet Take 81 mg by mouth daily. Historical Provider, ASPIRIN 81 PO 81 mg. 11/14/18 Historical Provider, atorvastatin (Lipitor) 80 MG tablet TAKE 1 TABLET BY MOUTH NIGHTLY 12/15/21 Toni Bey MD atorvastatin (Lipitor) 80 MG tablet Take 1 tablet by mouth Nightly. 11/11/21 Historical Provider, clopidogrel (Plavix) 75 MG tablet Take 75 mg by mouth daily. Historical Provider, clopidogrel (Plavix) 75 MG tablet Take 1 tablet by mouth daily. 11/14/18 Historical Provider, dicyclomine (Bentyl) 10 MG capsule TAKE 1 CAPSULE BY MOUTH THREE TIMES DAILY BEFORE MEAL(S) 11/14/18 Historical Provider, fesoterodine ER (Toviaz) 4 MG 24 hr tablet Take 4 mg by mouth daily. Historical Provider, fluticasone (Flovent) 220 MCG/ACT inhaler Inhale 2 puffs in the morning and 2 puffs in the evening.Rinse mouth with water after use to reduce aftertaste and incidence of candidiasis. Do not swallow.. 02/27/22 02/27/23 Gin Finn APRN - [employer] Lancets (OneTouch Delica) lancets 30G TEST SUGAR ONCE A DAY 03/27/21 Historical Provider, memantine (Namenda) 5 MG tablet Take 5 mg by mouth 2 times daily. 11/07/21 Historical ProviderMD metFORMIN (Glucophage) 500 MG tablet Take 500 mg by mouth in the morning and 500 mg in the evening.Take with meals. Historical Provider, metoprolol tartrate (Lopressor) 25 MG tablet Take 25 mg by mouth 2 times daily. Historical Provider, metoprolol tartrate (Lopressor) 25 MG tablet Take 0.5 tablets by mouth 2 times daily. 11/14/18 Historical Provider, mirtazapine (Remeron) 15 MG tablet Take 15 mg by mouth. Historical Provider, omeprazole (PriLOSEC) [address] capsule Take 40 mg by mouth every morning (before breakfast). Do notcrush or chew. Historical Provider, omeprazole (PriLOSEC) [address] capsule Take 1 capsule by mouth daily. 11/14/18 Historical Provider, OneTouch Ultra test strip TEST SUGAR ONCE A DAY 03/27/21 Historical Provider, oxybutynin (Ditropan) 5 MG tablet 01/20/22 Historical Provider, potassium chloride CR (Klor-Con M10) 10 MEQ ER tablet Take 10 mEq by mouth 2 times daily. Do not crush or chew. Historical Provider, potassium chloride CR (Klor-Con M10) 10 MEQ ER tablet Take 1 tablet by mouth in the morning and 1 tablet in the evening. Take with meals. 10/02/21 Historical ProviderMD potassium chloride ER (Micro-K) 10 MEQ ER capsule TAKE 1 TABLET BY MOUTH TWICE DAILY WITH MEALS 11/14/18 Historical Provider, prednisoLONE acetate (Pred-Forte) 1 % ophthalmic suspension Dose = 1 drop(s), Eyes, both, BID, # 10 mL, 0 Refill(s) 11/14/18 Historical ProviderMD rivastigmine (Exelon) 3 MG capsule 12/29/21 Historical Provider, sertraline (Zoloft) 50 MG tablet Take 50 mg by mouth daily. Historical Provider, therapeutic multivitamin-minerals (Theragran-M) tablet Take 1 tablet by mouth daily. Historical Provider, tiZANidine (Zanaflex) 4 MG tablet TAKE 1 TABLET BY MOUTH THREE TIMES A DAY NEEDED *50 TABLETS TOLAST 30 DAYS* 01/20/22 Historical Provider, torsemide (Demadex) 20 MG tablet Take 20 mg by mouth daily. Historical Provider, torsemide (Demadex) 20 MG tablet Take 1 tablet by mouth daily. 11/14/18 Historical Provider, ursodiol (Actigall) 300 MG capsule TAKE 1 CAPSULE BY MOUTH TWICE DAILY 11/14/18 Historical Provider, @MEDCMED@ ALLERGIES: Allergies Allergen Reactions Ticagrelor Shortness of breath REVIEW OF SYSTEMS: No fever, chills, or sweats. Normal appetite and weight. No MENJIVAR, visual disturbance, eye pain, jaundice, sore throat or mouth ulcers. No skin rash or itching. No CP, SOB, MCCURDY, cough or wheeze. No urinary frequency, urgency, hematuria, or dysuria. No myalgia, arthralgia, or joint swelling. No weakness, numbness, or confusion. GI per HPI. No polyuria, polydipsia, heat or cold intolerance. PHYSICAL EXAM: VS: BP (!) 105/46 (BP Location: Left arm, Patient Position: Lying) Pulse 62 Temp 36.1 C (97 F) (Temporal) Resp 16 SpO2 97% There is no height or weight on file to calculate BMI. GENERAL: Pleasant and NAD. HEENT: NCAT, PERRLA, EOMI, Scleral anicteric. CV: RRR, NL S1/S2, no murmurs. LUNGS: CTA b/l. No W/R/R. Abdomen: + BS, soft, non-tender and non-distended. No hernia. Neurologic: A&O x 1, CN II-XII grossly intact. No asterixis. Non-focal. Psych: Normal affect and speech. LABS AND IMAGING: Recent blood work and relevant radiologic and endoscopic studies were reviewed and discussed with the patient. Old records have not been requested. CBC: Recent Labs 06/13/22 1443 06/14/22 0531 WBC 6.9 4.6 HGB 9.5* 8.9* HCT 28.7* 27.0* PLT 188 171 HEPATIC: Recent Labs 06/13/22 1443 06/14/22 0531 AST 311* 218* ALT 185* 152* BILITOT 0.5 0.3 ALKPHOS 176* 141* LIPASE/AMYLASE: No results for input(s): AMYLASE, LIPASE in the last 72 hours. LACTATE: No lab exists for component: LACTA BNP: Recent Labs 06/13/22 1443 BNP 575* INR: Recent Labs 06/13/22 1443 INR 1.1 ECG 12 lead Result Date: 06/13/2022 Sinus rhythm Atrial premature complex Borderline left axis deviation Borderline low voltage, extremity leads Compared to ECG 02/11/2019 07:22:58 Atrial premature complex(es) now present Atrial fibrillation no longer present CT head wo IV contrast Result Date: 06/13/2022 Patient Name: PREMA VILLALPANDO : 1940 Date/Time: 06/13/2022 15:08 Procedure: CT HEAD WO IV CONTRAST Ordering Provider: CINTRON NISHIT Reason For Exam: Head trauma, minor (Age >= 67y) CT BRAIN WITHOUT CONTRAST CLINICAL INDICATION: Head trauma, minor (Age >= 65y) TECHNIQUE: CT scan of the brain without IV contrast. Multiplanar reformations. Dose reduction was employed with automated exposure control. COMPARISON: May,. FINDINGS: No apparent mass or mass effect, hemorrhage, midline shift or hydrocephalus. No evidence of acute cortical infarct. No abnormal, extra-axial fluid or air collection. Patchy low density in the periventricular and subcortical white matter is nonspecific, but may relate to chronic small vessel ischemic change. 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 Focal encephalomalacia suggesting old ischemic change or infarct(s) in the right posterior parietal region. Mild-moderate, diffuse volume loss. Osseous calvarium grossly intact. 1. No acute intracranial findings. 2. Probable chronic ischemic and atrophic changes. Report Dictated on Electronically Signed By: Niko Talley Electronically Signed Date/Time: 06/13/2022 3:16 PM EDT XR pelvis 1 or 2 views Result Date: 06/13/2022 Patient Name: PREMA VILLALPANDO : 1940 Date/Time: 06/13/2022 15:21 Procedure: XR PELVIS 1-2 VIEWS Ordering Provider: CINTRON NISHIT Reason For Exam: fall PELVIS: CLINICAL INDICATION: Fall, pain. TECHNIQUE: AP COMPARISON: None. FINDINGS: There is no evidence for fracture or dislocation. Mild bilateral hip osteoarthrosis. Degenerative changes in the visualized spine. No bone lesion is identified. There is no soft tissue abnormality. No fracture or dislocation. Report Dictated on Electronically Signed By:Jovi Davis Electronically Signed Date/Time: 06/13/2022 3:33 PM EDT Vascular US carotid artery duplex bilateral Result Date: 06/13/2022 <50% stenosis in the right internal carotid artery. Heterogeneous and calcific plaque (proximal)in the right internal carotid artery. <50% stenosis in the left internal carotid artery. Heterogeneous and calcific plaque (proximal) in the left internal carotid artery. Normal antegrade flow involving the right vertebral artery. Normal antegrade flow involving the left vertebral artery. Elevated velocities in left subclavian artery which may be consistent with a more proximal stenosis. Correlate clinically. IMPRESSION: Anemia - Hgb 8.9 (previously 11-12), no overt bleeding, low normal MCV, EGD 02/2022 with esophageal stricture s/p dilation. Elevated LFT's - AST 311, ALT 185, Alk phos 176 now all down-trending, negative hepatitis panel Lower extremity swelling RECOMMENDATIONS: Agree with RUQ US Trend LFT's Will add ferritin/iron studies to am labs Continue to monitor Hgb closely [facility] [id number] Consult note* Jersey Rollins MD - 06/14/2022 1:43 PM EDTAssociated Order(s): Inpatient consult to Gastroenterology Images from the original note were not included. GI CONSULTATION Patient: Prema Villalpando : 1940 Primary Care Physician: [facility] Inpatient consult to Gastroenterology Consult performed by: Jersey Rollins MD Consult ordered by: Mita Morton DO CHIEF COMPLAINT: elevated LFT's/anemia HISTORY OF PRESENT ILLNESS: 81 yo female with PMH below whom GI is consulted for anemia and elevated LFT's. Patient is a poor historian. History obtained from chart review. Came to the hospital for lower extremity swelling. Found to have a Hgb 8.9 (previously 11-12) and elevated LFT's (AST 311 -> 218; ALT 185 -> 152; Alk phos 176 -> 141), normal TB. Hepatitis panel negative. RUQ US ordered. Recent EGD 02/[address] Byrd for dysphagia with dilation of esophageal stricture with TTS 11-19-11. Biopsies positive for EOE. Unsure when last colonoscopy was completed (mentions 2018 or 2019). PAST MEDICAL HISTORY: Past Medical History: Diagnosis Date Anemia Anxiety GERD (gastroesophageal reflux disease) H/O heart artery stent 08/04/2018 History of blood transfusion Hx of blood clots Hyperlipidemia Hypertension PAST SURGICAL HISTORY: Past Surgical History: Procedure Laterality Date CHOLECYSTECTOMY 03/2019 COLONOSCOPY COLONOSCOPY 03/07/2019 stent removal COLONOSCOPY 09/21/2018 ERCP (HISTORICAL) 02/15/2019 EYE SURGERY Bilateral cataract THROAT SURGERY 2014 TUBAL LIGATION 1989 UPPER GASTROINTESTINAL ENDOSCOPY 08/08/2018 Dr [facility] FAMILY HISTORY: Family History Problem Relation Name Age of Onset High Blood Pressure Mother Heart disease Brother Cancer Brother Coronary artery disease Brother High Blood Pressure Brother Diabetes Brother SOCIAL HISTORY: TOBACCO: reports that she has never smoked. She has never used smokeless tobacco. ETOH: has no history on file for alcohol use. DRUGS: has no history on file for drug use. Medications: Prior to Admission medications Medication Sig Start Date End Date Taking? Authorizing Provider aspirin 81 MG EC tablet Take 81 mg by mouth daily. Historical Provider, ASPIRIN 81 PO 81 mg. 11/14/18 Historical Provider, atorvastatin (Lipitor) 80 MG tablet TAKE 1 TABLET BY MOUTH NIGHTLY 12/15/21 Toni Bey MD atorvastatin (Lipitor) 80 MG tablet Take 1 tablet by mouth Nightly. 11/11/21 Historical Provider, clopidogrel (Plavix) 75 MG tablet Take 75 mg by mouth daily. Historical Provider, clopidogrel (Plavix) 75 MG tablet Take 1 tablet by mouth daily. 11/14/18 Historical Provider, dicyclomine (Bentyl) 10 MG capsule TAKE 1 CAPSULE BY MOUTH THREE TIMES DAILY BEFORE MEAL(S) 11/14/18 Historical Provider, fesoterodine ER (Toviaz) 4 MG 24 hr tablet Take 4 mg by mouth daily. Historical Provider, fluticasone (Flovent) 220 MCG/ACT inhaler Inhale 2 puffs in the morning and 2 puffs in the evening.Rinse mouth with water after use to reduce aftertaste and incidence of candidiasis. Do not swallow.. 02/27/22 02/27/23 Gin Finn, MANAGEMENT ENGINEER - [employer]IDE Lancets (OneTouch Delica) lancets 30G TEST SUGAR ONCE A DAY 03/27/21 Historical Provider, memantine (Namenda) 5 MG tablet Take 5 mg by mouth 2 times daily. 11/07/21 Historical Provider, metFORMIN (Glucophage) 500 MG tablet Take 500 mg by mouth in the morning and 500 mg in the evening.Take with meals. Historical Provider, metoprolol tartrate (Lopressor) 25 MG tablet Take 25 mg by mouth 2 times daily. Historical ProviderMD metoprolol tartrate (Lopressor) 25 MG tablet Take 0.5 tablets by mouth 2 times daily. 11/14/18 Historical ProviderMD mirtazapine (Remeron) 15 MG tablet Take 15 mg by mouth. Historical Provider, omeprazole (PriLOSEC) [address] capsule Take 40 mg by mouth every morning (before breakfast). Do notcrush or chew. Historical Provider, omeprazole (PriLOSEC) [address] capsule Take 1 capsule by mouth daily. 11/14/18 Historical ProviderMD OneJoeuch Ultra test strip TEST SUGAR ONCE A DAY 03/27/21 Historical ProviderMD oxybutynin (Ditropan) 5 MG tablet 01/20/22 Historical Provider, potassium chloride CR (Klor-Con M10) 10 MEQ ER tablet Take 10 mEq by mouth 2 times daily. Do not crush or chew. Historical ProviderMD potassium chloride CR (Klor-Con M10) 10 MEQ ER tablet Take 1 tablet by mouth in the morning and 1 tablet in the evening. Take with meals. 10/02/21 Historical ProviderMD potassium chloride ER (Micro-K) 10 MEQ ER capsule TAKE 1 TABLET BY MOUTH TWICE DAILY WITH MEALS 11/14/18 Historical ProviderMD prednisoLONE acetate (Pred-Forte) 1 % ophthalmic suspension Dose = 1 drop(s), Eyes, both, BID, # 10 mL, 0 Refill(s) 11/14/18 Historical Provider, rivastigmine (Exelon) 3 MG capsule 12/29/21 Historical Provider, sertraline (Zoloft) 50 MG tablet Take 50 mg by mouth daily. Historical Provider, therapeutic multivitamin-minerals (Theragran-M) tablet Take 1 tablet by mouth daily. Historical Provider, tiZANidine (Zanaflex) 4 MG tablet TAKE 1 TABLET BY MOUTH THREE TIMES A DAY NEEDED *50 TABLETS TOLAST 30 DAYS* 01/20/22 Historical Provider, torsemide (Demadex) 20 MG tablet Take 20 mg by mouth daily. Historical Provider, torsemide (Demadex) 20 MG tablet Take 1 tablet by mouth daily. 11/14/18 Historical Provider, ursodiol (Actigall) 300 MG capsule TAKE 1 CAPSULE BY MOUTH TWICE DAILY 11/14/18 Historical Provider, @MEDCMED@ ALLERGIES: Allergies Allergen Reactions Ticagrelor Shortness of breath REVIEW OF SYSTEMS: No fever, chills, or sweats. Normal appetite and weight. No MENJIVAR, visual disturbance, eye pain, jaundice, sore throat or mouth ulcers. No skin rash or itching. No CP, SOB, MCCURDY, cough or wheeze. No urinary frequency, urgency, hematuria, or dysuria. No myalgia, arthralgia, or joint swelling. No weakness, numbness, or confusion. GI per HPI. No polyuria, polydipsia, heat or cold intolerance. PHYSICAL EXAM: VS: BP (!) 105/46 (BP Location: Left arm, Patient Position: Lying) Pulse 62 Temp 36.1 C (97 F) (Temporal) Resp 16 SpO2 97% There is no height or weight on file to calculate BMI. GENERAL: Pleasant and NAD. HEENT: NCAT, PERRLA, EOMI, Scleral anicteric. CV: RRR, NL S1/S2, no murmurs. LUNGS: CTA b/l. No W/R/R. Abdomen: + BS, soft, non-tender and non-distended. No hernia. Neurologic: A&O x 1, CN II-XII grossly intact. No asterixis. Non-focal. Psych: Normal affect and speech. LABS AND IMAGING: Recent blood work and relevant radiologic and endoscopic studies were reviewed and discussed with the patient. Old records have not been requested. CBC: Recent Labs 06/13/22 1443 06/14/22 0531 WBC 6.9 4.6 HGB 9.5* 8.9* HCT 28.7* 27.0* PLT 188 171 HEPATIC: Recent Labs 06/13/22 1443 06/14/22 0531 AST 311* 218* ALT 185* 152* BILITOT 0.5 0.3 ALKPHOS 176* 141* LIPASE/AMYLASE: No results for input(s): AMYLASE, LIPASE in the last 72 hours. LACTATE: No lab exists for component: LACTA BNP: Recent Labs 06/13/22 144 BNP 575* INR: Recent Labs 06/13/221442 INR 1.1 ECG 12 lead Result Date: 06/13/2022 Sinus rhythm Atrial premature complex Borderline left axis deviation Borderline low voltage, extremity leads Compared to ECG 02/11/2019 07:22:58 Atrial premature complex(es) now present Atrial fibrillation no longer present CT head wo IV contrast Result Date: 06/13/2022 [facility] 1940 [id number] Date/Time: 06/13/2022 15:08 Procedure: CT HEAD WO IV CONTRAST Ordering Provider: CINTRON NISHIT Reason For Exam: Head trauma, minor (Age >= 67y) CT BRAIN WITHOUT CONTRAST CLINICAL INDICATION: Head trauma, minor (Age >= 65y) TECHNIQUE: CT scan of the brain without IV contrast. Multiplanar reformations. Dose reduction was employed with automated exposure control. COMPARISON: May,. FINDINGS: No apparent mass or mass effect, hemorrhage, midline shift or hydrocephalus. No evidence of acute cortical infarct. No abnormal, extra-axial fluid or air collection. Patchy low density in the periventricular and subcortical white matter is nonspecific, but may relate to chronic small vessel ischemic change. 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 Focal encephalomalacia suggesting old ischemic change or infarct(s) in the right posterior parietal region. Mild-moderate, diffuse volume loss. Osseous calvarium grossly intact. 1. No acute intracranial findings. 2. Probable chronic ischemic and atrophic changes. Report Dictated on Electronically Signed By: Niko Talley Electronically Signed Date/Time: 06/13/2022 3:16 PM EDT XR pelvis 1 or 2 views Result Date: 06/13/2022 Patient Name: PREMA VILLALPANDO : 1940 [facility]#: [id number] Date/Time: 06/13/2022 15:21 Procedure: XR PELVIS 1-2 VIEWS Ordering Provider: CINTRON NISHIT Reason For Exam: fall PELVIS: CLINICAL INDICATION: Fall, pain. TECHNIQUE: AP COMPARISON: None. FINDINGS: There is no evidence for fracture or dislocation. Mild bilateral hip osteoarthrosis. Degenerative changes in the visualized spine. No bone lesion is identified. There is no soft tissue abnormality. No fracture or dislocation. Report Dictated on Electronically Signed By:Jovi Davis Electronically Signed Date/Time: 06/13/2022 3:33 PM EDT Vascular US carotid artery duplex bilateral Result Date: 06/13/2022 <50% stenosis in the right internal carotid artery. Heterogeneous and calcific plaque (proximal)in the right internal carotid artery. <50% stenosis in the left internal carotid artery. Heterogeneous and calcific plaque (proximal) in the left internal carotid artery. Normal antegrade flow involving the right vertebral artery. Normal antegrade flow involving the left vertebral artery. Elevated velocities in left subclavian artery which may be consistent with a more proximal stenosis. Correlate clinically. IMPRESSION: Anemia - Hgb 8.9 (previously 11-12), no overt bleeding, low normal MCV, EGD 02/2022 with esophageal stricture s/p dilation. Elevated LFT's - AST 311, ALT 185, Alk phos 176 now all down-trending, negative hepatitis panel Lower extremity swelling RECOMMENDATIONS: Agree with RUQ US Trend LFT's Will add ferritin/iron studies to am labs Continue to monitor Hgb closely documented in this [facility]05-07-2023 History and physical note* Mita Morton, DO - 06/14/2022 10:15 AM EDT Department of Family Medicine Attending History and Physical CHIEF COMPLAINT: ams LEG SWELLING Reason for Admission: same History Obtained From: patient and family History of Present Illness Prema Villalpando is a 81 y.o. female who presents to the emergency department with leg swelling. Also has bruising on her face. The bruising symptoms started less than 24 hours ago. No fever. She is on diuretic. But the legs are still more swollen. She was still able to walk room to room with her walker today. In the ER she was found to be anemicdown to 8.9. she has had no signs of GI bleeding. I did hold her blood thinners for now. Her LFTs are also up as well. She is being admitted for a GI consult and further workup Past Medical History: Past Medical History: Diagnosis Date Anemia Anxiety GERD (gastroesophageal reflux disease) H/O heart artery stent 08/04/2018 History of blood transfusion Hx of blood clots Hyperlipidemia Hypertension Past Surgical History: Past Surgical History: Procedure Laterality Date CHOLECYSTECTOMY 03/2019 COLONOSCOPY COLONOSCOPY 03/07/2019 stent removal COLONOSCOPY 09/21/2018 ERCP (HISTORICAL) 02/15/2019 EYE SURGERY Bilateral cataract THROAT SURGERY 2014 TUBAL LIGATION 1989 UPPER GASTROINTESTINAL ENDOSCOPY 08/08/2018 Dr [facility] Medications Prior to Admission: Medications Prior to Admission Medication Sig Dispense Refill Last Dose aspirin 81 MG EC tablet Take 81 mg by mouth daily. ASPIRIN 81 PO 81 mg. atorvastatin (Lipitor) 80 MG tablet TAKE 1 TABLET BY MOUTH NIGHTLY 30 tablet 10 atorvastatin (Lipitor) 80 MG tablet Take 1 tablet by mouth Nightly. clopidogrel (Plavix) 75 MG tablet Take 75 mg by mouth daily. clopidogrel (Plavix) 75 MG tablet Take 1 tablet by mouth daily. dicyclomine (Bentyl) 10 MG capsule TAKE 1 CAPSULE BY MOUTH THREE TIMES DAILY BEFORE MEAL(S) fesoterodine ER (Toviaz) 4 MG 24 hr tablet Take 4 mg by mouth daily. fluticasone (Flovent) 220 MCG/ACT inhaler Inhale 2 puffs in the morning and 2 puffs in the evening.Rinse mouth with water after use to reduce aftertaste and incidence of candidiasis. Do not swallow.. 12 g 1 Lancets (OneTouch Delica) lancets 30G TEST SUGAR ONCE A DAY memantine (Namenda) 5 MG tablet Take 5 mg by mouth 2 times daily. metFORMIN (Glucophage) 500 MG tablet Take 500 mg by mouth in the morning and 500 mg in the evening.Take with meals. metoprolol tartrate (Lopressor) 25 MG tablet Take 25 mg by mouth 2 times daily. metoprolol tartrate (Lopressor) 25 MG tablet Take 0.5 tablets by mouth 2 times daily. mirtazapine (Remeron) 15 MG tablet Take 15 mg by mouth. omeprazole (PriLOSEC) [address] capsule Take 40 mg by mouth every morning (before breakfast). Do notcrush or chew. omeprazole (PriLOSEC) [address] capsule Take 1 capsule by mouth daily. OneTouch Ultra test strip TEST SUGAR ONCE A DAY oxybutynin (Ditropan) 5 MG tablet potassium chloride CR (Klor-Con M10) 10 MEQ ER tablet Take 10 mEq by mouth 2 times daily. Do not crush or chew. potassium chloride CR (Klor-Con M10) 10 MEQ ER tablet Take 1 tablet by mouth in the morning and 1 tablet in the evening. Take with meals. potassium chloride ER (Micro-K) 10 MEQ ER capsule TAKE 1 TABLET BY MOUTH TWICE DAILY WITH MEALS prednisoLONE acetate (Pred-Forte) 1 % ophthalmic suspension Dose = 1 drop(s), Eyes, both, BID, # 10 mL, 0 Refill(s) rivastigmine (Exelon) 3 MG capsule sertraline (Zoloft) 50 MG tablet Take 50 mg by mouth daily. therapeutic multivitamin-minerals (Theragran-M) tablet Take 1 tablet by mouth daily. tiZANidine (Zanaflex) 4 MG tablet TAKE 1 TABLET BY MOUTH THREE TIMES A DAY NEEDED *50 TABLETS TOLAST 30 DAYS* torsemide (Demadex) 20 MG tablet Take 20 mg by mouth daily. torsemide (Demadex) 20 MG tablet Take 1 tablet by mouth daily. ursodiol (Actigall) 300 MG capsule TAKE 1 CAPSULE BY MOUTH TWICE DAILY Allergies: Ticagrelor Social History: Social History Socioeconomic History Marital status: Tobacco Use Smoking status: Never Smokeless tobacco: Never Vaping Use Vaping Use: Never used Family History: Family History Problem Relation Name Age of Onset High Blood Pressure Mother Heart disease Brother Cancer Brother Coronary artery disease Brother High Blood Pressure Brother Diabetes Brother REVIEW OF SYSTEMS: Review of Systems 10 point ros negative except for HPI Objective Vitals: BP (!) 105/46 (BP Location: Left arm, Patient Position: Lying) Pulse 62 Temp 36.1 C (97 F) (Temporal) Resp 16 SpO2 97% Physical Exam Pt is alert and oriented x 2 Heent wnl Heart regular Lungs ctab Abd benign Ext no edema Assessment/Plan Patient Active Problem List Diagnosis Thyroid nodule Dilation of biliary tract Cholecystitis Choledocholithiasis Calculus of gallbladder with acute cholecystitis and obstruction Calculus of bile duct without cholecystitis with obstruction Encounter for long-term (current) use of antiplatelets/antithrombotics Severe malnutrition (CMS/HCC) (HCC) Stented coronary artery Persistent atrial fibrillation (HCC) Iron deficiency anemia Dyslipidemia Malabsorption of iron Paroxysmal atrial fibrillation (CMS/HCC) (HCC) Acute blood loss anemia Abdominal pain STEMI (ST elevation myocardial infarction) (HCC) Leukocytosis Coronary artery disease involving [place] coronary artery of [place] [place] [facility] without angina pectoris Esophageal obstruction Dysphagia Dementia (HCC) Anemia AMS Elevated lfts Anemia DM 2 HTN HPL Plan Admit to med tele Consult GI Pt/ot eval Monitor labs MITA MORTON DO 06/14/22 10:15 AM [id number] History and physical note* Mita Morton DO - 06/14/2022 10:15 AM EDT Department of Family Medicine Attending History and Physical CHIEF COMPLAINT: ams LEG SWELLING Reason for Admission: same History Obtained From: patient and family History of Present Illness Prema Villalpando is a 81 y.o. female who presents to the emergency department with leg swelling. Also has bruising on her face. The bruising symptoms started less than 24 hours ago. No fever. She is on diuretic. But the legs are still more swollen. She was still able to walk room to room with her walker today. In the ER she was found to be anemicdown to 8.9. she has had no signs of GI bleeding. I did hold her blood thinners for now. Her LFTs are also up as well. She is being admitted for a GI consult and further workup Past Medical History: Past Medical History: Diagnosis Date Anemia Anxiety GERD (gastroesophageal reflux disease) H/O heart artery stent 08/04/2018 History of blood transfusion Hx of blood clots Hyperlipidemia Hypertension Past Surgical History: Past Surgical History: Procedure Laterality Date CHOLECYSTECTOMY 03/2019 COLONOSCOPY COLONOSCOPY 03/07/2019 stent removal COLONOSCOPY 09/21/2018 ERCP (HISTORICAL) 02/15/2019 EYE SURGERY Bilateral cataract THROAT SURGERY 2014 TUBAL LIGATION 1989 UPPER GASTROINTESTINAL ENDOSCOPY 08/08/2018 Dr [facility] Medications Prior to Admission: Medications Prior to Admission Medication Sig Dispense Refill Last Dose aspirin 81 MG EC tablet Take 81 mg by mouth daily. ASPIRIN 81 PO 81 mg. atorvastatin (Lipitor) 80 MG tablet TAKE 1 TABLET BY MOUTH NIGHTLY 30 tablet 10 atorvastatin (Lipitor) 80 MG tablet Take 1 tablet by mouth Nightly. clopidogrel (Plavix) 75 MG tablet Take 75 mg by mouth daily. clopidogrel (Plavix) 75 MG tablet Take 1 tablet by mouth daily. dicyclomine (Bentyl) 10 MG capsule TAKE 1 CAPSULE BY MOUTH THREE TIMES DAILY BEFORE MEAL(S) fesoterodine ER (Toviaz) 4 MG 24 hr tablet Take 4 mg by mouth daily. fluticasone (Flovent) 220 MCG/ACT inhaler Inhale 2 puffs in the morning and 2 puffs in the evening.Rinse mouth with water after use to reduce aftertaste and incidence of candidiasis. Do not swallow.. 12 g 1 Lancets (Email Data Sourceuch Delica) lancets 30G TEST SUGAR ONCE A DAY memantine (Namenda) 5 MG tablet Take 5 mg by mouth 2 times daily. metFORMIN (Glucophage) 500 MG tablet Take 500 mg by mouth in the morning and 500 mg in the evening.Take with meals. metoprolol tartrate (Lopressor) 25 MG tablet Take 25 mg by mouth 2 times daily. metoprolol tartrate (Lopressor) 25 MG tablet Take 0.5 tablets by mouth 2 times daily. mirtazapine (Remeron) 15 MG tablet Take 15 mg by mouth. omeprazole (PriLOSEC) [address] capsule Take 40 mg by mouth every morning (before breakfast). Do notcrush or chew. omeprazole (PriLOSEC) [address] capsule Take 1 capsule by mouth daily. [employer] Ultra test strip TEST SUGAR ONCE A DAY oxybutynin (Ditropan) 5 MG tablet potassium chloride CR (Klor-Con M10) 10 MEQ ER tablet Take 10 mEq by mouth 2 times daily. Do not crush or chew. potassium chloride CR (Klor-Con M10) 10 MEQ ER tablet Take 1 tablet by mouth in the morning and 1 tablet in the evening. Take with meals. potassium chloride ER (Micro-K) 10 MEQ ER capsule TAKE 1 TABLET BY MOUTH TWICE DAILY WITH MEALS prednisoLONE acetate (Pred-Forte) 1 % ophthalmic suspension Dose = 1 drop(s), Eyes, both, BID, # 10 mL, 0 Refill(s) rivastigmine (Exelon) 3 MG capsule sertraline (Zoloft) 50 MG tablet Take 50 mg by mouth daily. therapeutic multivitamin-minerals (Theragran-M) tablet Take 1 tablet by mouth daily. tiZANidine (Zanaflex) 4 MG tablet TAKE 1 TABLET BY MOUTH THREE TIMES A DAY NEEDED *50 TABLETS TOLAST 30 DAYS* torsemide (Demadex) 20 MG tablet Take 20 mg by mouth daily. torsemide (Demadex) 20 MG tablet Take 1 tablet by mouth daily. ursodiol (Actigall) 300 MG capsule TAKE 1 CAPSULE BY MOUTH TWICE DAILY Allergies: Ticagrelor Social History: Social History Socioeconomic History Marital status: Tobacco Use Smoking status: Never Smokeless tobacco: Never Vaping Use Vaping Use: Never used Family History: Family History Problem Relation Name Age of Onset High Blood Pressure Mother Heart disease Brother Cancer Brother Coronary artery disease Brother High Blood Pressure Brother Diabetes Brother REVIEW OF SYSTEMS: Review of Systems 10 point ros negative except for HPI Objective Vitals: BP (!) 105/46 (BP Location: Left arm, Patient Position: Lying) Pulse 62 Temp 36.1 C (97 F) (Temporal) Resp 16 SpO2 97% Physical Exam Pt is alert and oriented x 2 Heent wnl Heart regular Lungs ctab Abd benign Ext no edema Assessment/Plan Patient Active Problem List Diagnosis Thyroid nodule Dilation of biliary tract Cholecystitis Choledocholithiasis Calculus of gallbladder with acute cholecystitis and obstruction Calculus of bile duct without cholecystitis with obstruction Encounter for long-term (current) use of antiplatelets/antithrombotics Severe malnutrition (CMS/HCC) (HCC) Stented coronary artery Persistent atrial fibrillation (HCC) Iron deficiency anemia Dyslipidemia Malabsorption of iron Paroxysmal atrial fibrillation (CMS/HCC) (HCC) Acute blood loss anemia Abdominal pain STEMI (ST elevation myocardial infarction) (HCC) Leukocytosis Coronary artery disease involving [place] coronary artery of [place] heart without angina pectoris Esophageal obstruction Dysphagia Dementia (HCC) Anemia AMS Elevated lfts Anemia DM 2 HTN HPL Plan Admit to med tele Consult GI Pt/ot eval Monitor labs MITA MORTON DO 06/14/22 10:15 AM documented in this [place] [id number] Hospital Discharge instructions* Discharge Instr - Other Orders* Estelle Mitchell LPN - 06/13/2022 5:59 PM EDT Discharging to Facility/ Agency Name: [facility] [place] Address: [address] [place] [address] * Discharge Instr - NAOMIE* Nicole Boles RN - 06/16/2022 1:18 PM EDT Continuity of Care Form Patient Name: Prema Villalpando : 1940 Admit date: 06/13/2022 Discharge date: 06/16/22 Code Status Order: Full Code Advance Directives: Y Admitting Physician: Mita Morton DO PCP: MITA MORTON DO Discharging Nurse: lily Discharging Hospital Unit/Room#: B2-248/B2-248 B Discharging Unit Emergency Contact: Extended Emergency Contact Information Primary Emergency Contact: Hossein Cornell Relation: Child Secondary Emergency Contact: Yaz Davis Mobile Relation: Child Past Surgical History: Past Surgical History: Procedure Laterality Date CHOLECYSTECTOMY 03/2019 COLONOSCOPY COLONOSCOPY 03/07/2019 stent removal COLONOSCOPY 09/21/2018 ERCP (HISTORICAL) 02/15/2019 EYE SURGERY Bilateral cataract THROAT SURGERY 2014 TUBAL LIGATION 1989 UPPER [facility] Immunization History: Immunization History Administered Date(s) Administered Pfizer SARS-CoV-2 Vaccination 04/09/2020, 05/03/2020, 11/15/2020 Active Problems: Medical Problems Problem List * (Principal) Anemia Persistent atrial fibrillation (HCC) Iron deficiency anemia Esophageal obstruction Dysphagia Dementia (HCC) Thyroid nodule Dilation of biliary tract Cholecystitis Choledocholithiasis Calculus of gallbladder with acute cholecystitis and obstruction Calculus of bile duct without cholecystitis with obstruction Encounter for long-term (current) use of antiplatelets/antithrombotics Severe malnutrition (CMS/HCC) (HCC) Stented coronary artery Dyslipidemia Malabsorption of iron Paroxysmal atrial fibrillation (CMS/HCC) (HCC) Acute blood loss anemia Overview Signed 11/23/2021 3:28 PM by Interface, Incoming Problems- [facility] Conversion ?GIB Abdominal pain STEMI (ST elevation myocardial infarction) (HCC) Leukocytosis Coronary artery disease involving [place] coronary artery of [place] heart without angina pectoris Isolation/Infection: No active isolations No active infections Nurse Assessment: Last Vital Signs: BP (!) 144/60 (BP Location: Right arm, Patient Position: Lying) Pulse 76 Temp36.2 C (97.2 F) (Temporal) Resp 16 SpO2 95% Last documented pain score (0-10 scale): Last Weight: Wt Readings from Last 1 Encounters: 02/23/22 44 kg (97 lb) Mental Status: NAOMIE Patient Mental Status: disoriented and alert IV Access: NAOMIE IV Access: None Nursing Mobility/ADLs: Walking Minimal assistance Transfer Minimal assistance Bathing Total assistance Dressing Total assistance Toileting Minimal assistance Feeding Minimal assistance Manager Integration Minimal assistance Med Delivery yes Wound Care Documentation and Therapy: Elimination: Continence: Bowel: no Bladder: no Urinary Catheter: None Colostomy/Ileostomy/Ileal Conduit: None Date of Last BM: 06/15/22 Intake/Output Summary (Last 24 hours) at 06/16/2022 1318 Last data filed at 06/16/2022 0515 Gross per 24 hour Intake 2173.33 ml Output 2 ml Net 2171.33 ml I/O last 3 completed shifts: In: 5685.7 [P.O.:250; I.V.:5435.7] Out: 2 [Urine:2] Safety Concerns: at risk for falls Impairments/Disabilities: vision Nutrition Therapy: Current Nutrition Therapy: Oral diet: carb control 5 carbs/meal (2000kcals/day) Routes of Feeding: oral Liquids: thin liquids Daily Fluid Restriction: no Last Modified Barium Swallow with Video (Video Swallowing Test): not done Treatments at the Time of Hospital Discharge: Respiratory Treatments: Oxygen Therapy: is not on home oxygen therapy. Ventilator: No ventilator support Rehab Therapies: physical therapy and occupational therapy Weight Bearing Status/Restrictions: no restriction Other Medical Equipment (for information only, NOT a DME order): wheeled walker Other Treatments: Patient's personal belongings (please select all that are sent with patient): hearing aides bilateral and dentures upper RN SIGNATURE: MANAGEMENT/SOCIAL WORK SECTION Inpatient Status Date: 06/13/2022 Readmission Risk Assessment Score: @READMISSIONRISKDETAILS@ Discharging to Facility/ Agency Name: [facility] Address: [address] [place], [place] [id number] Fax: Dialysis Facility (if applicable) Name: Address: Dialysis Schedule: Phone: Fax: Carpet Layer/Production Lead signature: ICIAN SECTION Prognosis: fair Condition at Discharge: stable Rehab Potential (if transferring to Rehab): fair Recommended Labs or Other Treatments After Discharge: none Physician Certification: I certify the above information and transfer of Prema Villalpando is necessary for the continuing treatment of the diagnosis listed and that she requires senior care facility for less than 30 days. Update Admission H&P: No change in H&P PHYSICIAN SIGNATURE: documented in this [facility]05-06-2023 Note* Home Care - Estelle Mitchell LPN - 06/13/2022 5:56 PM EDT Patient is currently active with [facility]. The patients current certification period will on 07/31/2022. The patient is currently receiving PT/OT/ST services through the agency. Medical Corps Officer to continue to follow. Placed in care port and sparc [employer] [id number] Note* Home Care - Estelle Mitchell LPN - 06/13/2022 5:56 PM EDT Patient is currently active with [facility]. The patients current certification period will on 07/31/2022. The patient is currently receiving PT/OT/ST services through the agency. Medical [employer] Officer to continue to follow. Placed in care port and sparc [facility] [id number] Note* Care Coordination - Josey Mckeon RN - 06/13/2022 4:28 PM EDT Care Managment Initial Assessment Date: 06/13/2022 Patient Name: Prema Villalpando : 1940 Patient Information Source of Information: Patient, Patient System Developer Associate Manager Name/Contact Information: HOSSEIN CORNELL [phone] DAUGHTER AND DAUGHTER YAZ DAVIS [phone] Cognition/Language: WFL - Within Functional Limits Permission given to speak with patient business office representative/caregiver as indicated: Yes Confirmation of Payer with patient/family: Yes Payer Name: O [place]: No Confirmation of Primary Care Physician: Confirmed PCP Name: DR. MORTON Seen in last 2 years?: Yes Primary Caregiver: Family If assistance needed, confirmed caregiver ready, willing and able to care for patient at discharge:Yes Confirmed with: AKI CATALAN Living Arrangements Current Residence: ([place]) Number of Floors 1 Number of Entry Steps: 2 Bed/Bath Levels: Both first floor Facility: Facility Name: NA Plan to Return: Yes Lives with: Alone Support Systems: Children, Family members, Home care staff, Comments (Other) ([facility]) Activities of Daily Living Ambulation: Independent Bathing/Dressing: Independent Elimination/Continence/Toileting: Independent Feeding: Independent Who Assists with Activities of Daily Living: NA Instrumental Activities of Daily Living Prescription Coverage: Yes Pharmacy Used: [facility] Medication Management: Prescription pick-up Who assists with medication securing and setup?: DAUGHTER SECURES AND SETS UP MEDS Transportation/Shopping: Assistance Provider Transportation/Shopping Assistance Provider Name: DAUGHTER OR [facility] Transportation Mode: Car, Senior/disability transport service Needs Assistance with Transportation at Discharge: No (DAUGHTER) Meal Preparation: Assistance Provider Meal Prep Assistance Provider Name: DAUGHTER Laundry/Cleaning: Assistance Provider Laundry/Cleaning Assistance Provider Name: DAUGHTER Finances/Bill Paying: Assistance Provider Finances/Bill Payer Assistance Provider Name: DAUGHTER Communication: Independent Types of Care Services/Equipment Utilized Care Services: Skilled Home Health Services Care Services Provider Name: UNSURE IF THROUGH Animated Speech OR Hooked Dialysis Type: NA Durable Medical Equipment: Walker, Shower Seat, Glucometer Patient's Goal/Discharge Plan Patient expects to be discharged to: HOME WITH RESUMPTION OF PREVIOUS SERVICES Discharge Planning Actions: Continue to follow Patient's Choice Rights and [employer] and Collaborative Relationships Disclosed as Indicated for Post-Acute Care: NA Interdisciplinary Team Engagement: Home Health Care, PT/OT Social Work Referral for: Additional Information: Inpatient status from home with anemia. Admitted to [facility]. Admissions orders are pending. Discharge preparation checklist reviewed with patient and her daughter Hossein. Patient lives in [facility] [place] to her daughter and son in law. Is active with the [facility] M-F 730-330pm. Her daughter states she has occupational therapy that was seeing her at [facility] and was going to start with ST for swallowing. informatics physician liaison updated via [facility] and is following. Daughter uncertain if through [employer] or [employer]. Daughter assists patient with all household tasks and patient is independent in her adls. Does not anticipate any needs upon discharge and tentative discharge plan is home with resumption of previous services when medically stable. Will likely need pt/ot evals to assist with dc planning needs. .. Josey Mckeon RN [facility] [id number] Note* Care Coordination - Josey Mckeon RN - 06/13/2022 4:28 PM EDT Care Managment Initial Assessment Date: 06/13/2022 Patient Name: Prema Villalpando : 1940 Patient Information Source of Information: Patient, Patient System Developer Associate Manager Name/Contact Information: HOSSEIN CORNELL [phone] DAUGHTER AND DAUGHTER YAZ DAVIS [phone] Cognition/Language: WFL - Within Functional Limits Permission given to speak with patient business office representative/caregiver as indicated: Yes Confirmation of Payer with patient/family: Yes Payer Name: MMO [place]: No Confirmation of Primary Care Physician: Confirmed PCP Name: DR. MORTON Seen in last 2 years?: Yes Primary Caregiver: Family If assistance needed, confirmed caregiver ready, willing and able to care for patient at discharge:Yes Confirmed with: AKI CATALAN Living Arrangements Current Residence: ([facility]) Number of Floors 1 Number of Entry Steps: 2 Bed/Bath Levels: Both first floor Facility: Facility Name: NA Plan to Return: Yes Lives with: Alone Support Systems: Children, Family members, Home care staff, Comments (Other) ([facility]) Activities of Daily Living Ambulation: Independent Bathing/Dressing: Independent Elimination/Continence/Toileting: Independent Feeding: Independent Who Assists with Activities of Daily Living: NA Instrumental Activities of Daily Living Prescription Coverage: Yes Pharmacy Used: [facility] Medication Management: Prescription pick-up Who assists with medication securing and setup?: DAUGHTER SECURES AND SETS UP MEDS Transportation/Shopping: Assistance Provider Transportation/Shopping Assistance Provider Name: AKI TOBIAS [facility] Transportation Mode: Car, Senior/disability transport service Needs Assistance with Transportation at Discharge: No (DAUGHTER) Meal Preparation: Assistance Provider Meal Prep Assistance Provider Name: DAUGHTER Laundry/Cleaning: Assistance Provider Laundry/Cleaning Assistance Provider Name: DAUGHTER Finances/Bill Paying: Assistance Provider Finances/Bill Payer Assistance Provider Name: DAUGHTER Communication: Independent Types of Care Services/Equipment Utilized Care Services: Skilled Home Health Services Care Services Provider Name: UNSURE IF THROUGH [facility] Dialysis Type: NA Durable Medical Equipment: Walker, Shower Seat, Glucometer Patient's Goal/Discharge Plan Patient expects to be discharged to: HOME WITH RESUMPTION OF PREVIOUS SERVICES Discharge Planning Actions: Continue to follow Patient's Choice Rights and [employer] and Collaborative Relationships Disclosed as Indicated for Post-Acute Care: NA Interdisciplinary Team Engagement: Home Health Care, PT/OT Social Work Referral for: Additional Information: Inpatient status from home with anemia. Admitted to [facility]. Admissions orders are pending. Discharge preparation checklist reviewed with patient and her daughter Hossein. [facility] [place] [facility] [place] her daughter and son in law. Is active with the [employer] M-F 730-330pm. Her daughter states she has occupational therapy that was seeing her at [facility] and was going to start with ST for swallowing. informatics physician liaison [facility] and is following. Daughter uncertain if through [employer] or [employer]. Daughter assists patient with all household tasks and patient is independent in her adls. Does not anticipate any needs upon discharge and tentative discharge plan is home with resumption of previous services when medically stable. Will likely need pt/ot evals to assist with dc planning needs. .. Josey Mckeon RN [facility] [id number] Emergency department Note* Natalie Scott RN - 06/13/2022 3:13 PM EDT This RN clarified magnesium order with eve Moreno to give per provider. Natalie Scott RN 06/13/22 1514 [facility] [id number] Emergency department Note* Natalie Scott RN - 06/13/2022 3:13 PM EDT This RN clarified magnesium order with eve Moreno to give per provider. Natalie Scott RN 06/13/22 1514 * Natalie Scott RN - 06/13/2022 3:03 PM EDT Patient placed in wheelchair to use restroom, pt ambulated well independently from wheelchair to bathroom Natalie Scott RN 06/13/22 1508 * Eric Cintron MD - 06/13/2022 12:04 PM EDT EMERGENCY DEPARTMENT ENCOUNTER Pt Name: Prema Villalpando Birthdate 1940 Date of evaluation: 06/13/2022 CHIEF COMPLAINT Chief Complaint Patient presents with Leg Swelling HISTORY OF PRESENT ILLNESS History provided by: Patient and relative History limited by: Mental status change Prema Villalpando is a 81 y.o. female who presents to the emergency department with leg swelling. Also has bruising on her face. The bruising symptoms started less than 24 hours ago. No fever. She is on diuretic. But the legs are still more swollen. She was still able to walk room to room with her walker today. REVIEW OF SYSTEMS Review of Systems Unable to perform ROS: Mental status change CURRENT MEDICATIONS Previous Medications ASPIRIN 81 MG EC TABLET Take 81 mg by mouth daily. ASPIRIN 81 PO 81 mg. ATORVASTATIN (LIPITOR) 80 MG TABLET TAKE 1 TABLET BY MOUTH NIGHTLY ATORVASTATIN (LIPITOR) 80 MG TABLET Take 1 tablet by mouth Nightly. CLOPIDOGREL (PLAVIX) 75 MG TABLET Take 75 mg by mouth daily. CLOPIDOGREL (PLAVIX) 75 MG TABLET Take 1 tablet by mouth daily. DICYCLOMINE (BENTYL) 10 MG CAPSULE TAKE 1 CAPSULE BY MOUTH THREE TIMES DAILY BEFORE MEAL(S) FESOTERODINE ER (TOVIAZ) 4 MG 24 HR TABLET Take 4 mg by mouth daily. FLUTICASONE (FLOVENT) 220 MCG/ACT INHALER Inhale 2 puffs in the morning and 2 puffs in the evening.Rinse mouth with water after use to reduce aftertaste and incidence of candidiasis. Do not swallow.. LANCETS (ONETOUCH DELICA) LANCETS 30G TEST SUGAR ONCE A DAY MEMANTINE (NAMENDA) 5 MG TABLET Take 5 mg by mouth 2 times daily. METFORMIN (GLUCOPHAGE) 500 MG TABLET Take 500 mg by mouth in the morning and 500 mg in the evening.Take with meals. METOPROLOL TARTRATE (LOPRESSOR) 25 MG TABLET Take 25 mg by mouth 2 times daily. METOPROLOL TARTRATE (LOPRESSOR) 25 MG TABLET Take 0.5 tablets by mouth 2 times daily. MIRTAZAPINE (REMERON) 15 MG TABLET Take 15 mg by mouth. OMEPRAZOLE (PRILOSEC) [address] CAPSULE Take 40 mg by mouth every morning (before breakfast). Do notcrush or chew. OMEPRAZOLE (PRILOSEC) [address] CAPSULE Take 1 capsule by mouth daily. Noitavonne ULTRA TEST STRIP TEST SUGAR ONCE A DAY OXYBUTYNIN (DITROPAN) 5 MG TABLET POTASSIUM CHLORIDE CR (KLOR-CON M10) 10 MEQ ER TABLET Take 10 mEq by mouth 2 times daily. Do not crush or chew. POTASSIUM CHLORIDE CR (KLOR-CON M10) 10 MEQ ER TABLET Take 1 tablet by mouth in the morning and 1 tablet in the evening. Take with meals. POTASSIUM CHLORIDE ER (MICRO-K) 10 MEQ ER CAPSULE TAKE 1 TABLET BY MOUTH TWICE DAILY WITH MEALS PREDNISOLONE ACETATE (PRED-FORTE) 1 % OPHTHALMIC SUSPENSION Dose = 1 drop(s), Eyes, both, BID, # 10 mL, 0 Refill(s) RIVASTIGMINE (EXELON) 3 MG CAPSULE SERTRALINE (ZOLOFT) 50 MG TABLET Take 50 mg by mouth daily. THERAPEUTIC MULTIVITAMIN-MINERALS (THERAGRAN-M) TABLET Take 1 tablet by mouth daily. TIZANIDINE (ZANAFLEX) 4 MG TABLET TAKE 1 TABLET BY MOUTH THREE TIMES A DAY NEEDED *50 TABLETS TOLAST 30 DAYS* TORSEMIDE (DEMADEX) 20 MG TABLET Take 20 mg by mouth daily. TORSEMIDE (DEMADEX) 20 MG TABLET Take 1 tablet by mouth daily. URSODIOL (ACTIGALL) 300 MG CAPSULE TAKE 1 CAPSULE BY MOUTH TWICE DAILY ALLERGIES Ticagrelor FAMILY HISTORY Family History Problem Relation Name Age of Onset High Blood Pressure Mother Heart disease Brother Cancer Brother Coronary artery disease Brother High Blood Pressure Brother Diabetes Brother SOCIAL HISTORY Social History Socioeconomic History Marital status: Tobacco Use Smoking status: Never Smokeless tobacco: Never Vaping Use Vaping Use: Never used PHYSICAL EXAM Vitals: 06/13/22 1209 06/13/22 1315 06/13/22 1400 06/13/22 1431 BP: 92/51 123/56 97/84 (!) 144/62 Pulse: 86 76 72 80 Resp: 14 Temp: 36.8 C (98.2 F) TempSrc: Temporal SpO2: 99% 99% 97% 98% Physical Exam Vitals and nursing note reviewed. HENT: Head: Contusion present. No raccoon eyes or Lind's sign. 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 No trismus or malocclusion. Eyes: Extraocular Movements: Extraocular movements intact. Conjunctiva/sclera: Conjunctivae normal. Pupils: Pupils are equal, round, and reactive to light. Cardiovascular: Rate and Rhythm: Normal rate and regular rhythm. Heart sounds: Normal heart sounds. Pulmonary: Effort: Pulmonary effort is normal. Breath sounds: Normal breath sounds. Musculoskeletal: Cervical back: Normal range of motion. Right lower leg: Edema present. Left lower leg: Edema present. Skin: General: Skin is warm. Coloration: Skin is not jaundiced. Findings: Bruising (forehead) present. Neurological: Mental Status: She is alert. Psychiatric: Attention and Perception: Perception normal. She is inattentive. Cognition and Memory: Memory is impaired. She exhibits impaired recent memory. SCREENINGS Medical decision making Medical Decision Making Problems Addressed: Anemia: complicated acute illness or injury Hyponatremia: complicated acute illness or injury Amount and/or Complexity of Data Reviewed Labs: ordered. Decision-making details documented in ED Course. Radiology: ordered. Decision-making details documented in ED Course. ECG/medicine tests: ordered. Decision-making details documented in ED Course. Risk OTC drugs. Prescription drug management. Decision regarding hospitalization. DIAGNOSTIC RESULTS Procedures/EKG: Physician EKG interpretation can be found in [facility] if done RADIOLOGY (Per Emergency Physician): Interpretation per the Radiologist below, if available at the time of this note: XR pelvis 1 or 2 views Final Result No fracture or dislocation. Report Dictated on Electronically Signed By: Jovi Davis Electronically Signed Date/Time: 06/13/2022 3:[address] head wo IV contrast Final Result 1. No acute intracranial findings. 2. Probable chronic ischemic and atrophic changes. Report Dictated on Electronically Signed By: Niko Talley Electronically Signed Date/Time: 06/13/2022 3:16 PM EDT LABS: Labs Reviewed CBC WITH AUTO DIFFERENTIAL - Abnormal Result Value Auto WBC 6.9 RBC 3.51 (*) Hemoglobin 9.5 (*) Hematocrit 28.7 (*) MCV 81.7 MCH 26.9 MCHC 33.0 RDW 14.6 (*) Platelets 188 MPV 9.2 nRBC 0.0 Neutrophils Relative 75.0 Lymphocytes Relative 19.0 (*) Monocytes Relative 5.0 Eosinophils Relative 0.5 (*) Basophils Relative 0.5 Neutrophils Absolute 5.2 Lymphocytes Absolute 1.3 Monocytes Absolute 0.3 Eosinophils Absolute 0.0 Basophils Absolute 0.0 COMPREHENSIVE METABOLIC PANEL - Abnormal SODIUM 134 (*) POTASSIUM 3.7 CHLORIDE 104 CARBON DIOXIDE 27 ANION GAP 3 UREA NITROGEN 26 (*) CREATININE 0.80 GLUCOSE 114 (*) CALCIUM 8.7 AST (SGOT) 311 (*) ALT 185 (*) ALKALINE PHOSPHATASE 176 (*) ALBUMIN 3.4 (*) BILIRUBIN, TOTAL 0.5 TOTAL PROTEIN 7.5 eGFR 75.1 LACTIC ACID, SEPSIS WITH REFLEX IF ELEVATED - Abnormal LACTIC ACID 2.2 (*) NT PRO BNP - Abnormal NT PRO BNP 575 (*) PROTHROMBIN TIME - Normal PROTHROMBIN TIME 11.6 INR 1.1 THYROID STIMULATING HORMONE - Normal THYROID STIMULATING HORMONE 3.546 D-DIMER,QUANTITATIVE - Normal D-DIMER, INNOVANCE <0.19 Narrative: Innovance D-Dimer values of <0.50 mg/L FEU can be used in combination with a pre-test probability model (e.g. Well's) to exclude pulmonary embolism (PE) disease, as well as an aid in the diagnosisof deep vein thrombosis (DVT). TROPONIN I - Normal TROPONIN I <0.012 Narrative: Patients with high levels of Biotin oral intake (ie >5 mg/day) may have falsely decreased Troponin levels. POCT GLUCOSE METER - Normal Glucose Blood, POC 114 BLOOD CULTURE OCCULT BLOOD, STOOL BLOOD CULTURE LACTIC ACID, PLASMA HEPATITIS PANEL, ACUTE ACETAMINOPHEN LEVEL Medications ordered: Medications magnesium sulfate IVPB premix 2,000 mg (2,000 mg IntraVENous New Bag 06/13/22 1536) acetaminophen (Tylenol) tablet 650 mg (650 mg Oral Given 06/13/22 1538) ED Course as of 06/13/22 1543 Sat June 13, 2022 1526 Hemoglobin(!): 9.5 Prior medical records were reviewed: hgb decreased by 3 units [NM] 1527 AST (SGOT)(!): 311 Prior medical records were reviewed: worse [NM] 1528 NT PRO BNP(!): 575 Less < 1800 units unlikely chf. [NM] 1535 CT head wo IV contrast nad [NM] 1535 XR pelvis 1 or 2 views nad [NM] 1535 ECG 12 lead Sr, no ischemia [NM] ED Course User Index [NM] Eric Cintron MD Diagnoses as of 06/13/22 1543 Anemia Hyponatremia Hepatitis * No order type specified * Couple low blood pressure readings with narrow pulse pressure but then blood pressure was high. Magnesium sulfate IV as she is on a diuretic. Serial hemoglobins. Ordered hepatitis panel, Tylenol level. Further evaluation treatment by Dr. Morton. REVAL: CRITICAL CARE TIME CONSULTS: None PROCEDURES: Procedures FINAL IMPRESSION 1. Anemia 2. Hyponatremia 3. Hepatitis DISPOSITION/PLAN DISPOSITION Admit 06/13/2022 03:32:32 PM Case was discussed with Dr. Mita Morton and patient was accepted for hospitalization. Thank PATIENT REFERRED TO: No follow-up provider specified. I prescribed: New Prescriptions No medications on file (Comment: this report has been produced using speech recognition software and may contain errors related to that system including errors in grammar, punctuation, and spelling, as well as words and phrases that may be inappropriate) ERIC CINTRON MD (electronically signed) Eric Cintron MD 06/13/22 1543 * Ashanti Michelle RN - 06/13/2022 12:04 PM EDT Pt presents from outpatient ECHO due to bilateral leg edema. +2 edema noted. Pt poor historian. Pt accompanied by daughter documented in this [facility]05-06-2023 Emergency department Note* Natalie Scott RN - 06/13/2022 3:03 PM EDT Patient placed in wheelchair to use restroom, pt ambulated well independently from wheelchair to bathroom Natalie Scott RN 06/13/22 1508 [id number] Emergency department Triage note* Ashanti Michelle RN - 06/13/2022 12:04 PM EDT Pt presents from outpatient ECHO due to bilateral leg edema. +2 edema noted. Pt poor historian. Pt accompanied by daughter [facility] [id number] Physician Emergency department Note* Eric Cintron MD - 06/13/2022 12:04 PM EDT EMERGENCY DEPARTMENT ENCOUNTER Pt Name: Prema Villalpando Birthdate 1940 Date of evaluation: 06/13/2022 CHIEF COMPLAINT Chief Complaint Patient presents with Leg Swelling HISTORY OF PRESENT ILLNESS History provided by: Patient and relative History limited by: Mental status change Prema Villalpando is a 81 y.o. female who presents to the emergency department with leg swelling. Also has bruising on her face. The bruising symptoms started less than 24 hours ago. No fever. She is on diuretic. But the legs are still more swollen. She was still able to walk room to room with her walker today. REVIEW OF SYSTEMS Review of Systems Unable to perform ROS: Mental status change CURRENT MEDICATIONS Previous Medications ASPIRIN 81 MG EC TABLET Take 81 mg by mouth daily. ASPIRIN 81 PO 81 mg. ATORVASTATIN (LIPITOR) 80 MG TABLET TAKE 1 TABLET BY MOUTH NIGHTLY ATORVASTATIN (LIPITOR) 80 MG TABLET Take 1 tablet by mouth Nightly. CLOPIDOGREL (PLAVIX) 75 MG TABLET Take 75 mg by mouth daily. CLOPIDOGREL (PLAVIX) 75 MG TABLET Take 1 tablet by mouth daily. DICYCLOMINE (BENTYL) 10 MG CAPSULE TAKE 1 CAPSULE BY MOUTH THREE TIMES DAILY BEFORE MEAL(S) FESOTERODINE ER (TOVIAZ) 4 MG 24 HR TABLET Take 4 mg by mouth daily. FLUTICASONE (FLOVENT) 220 MCG/ACT INHALER Inhale 2 puffs in the morning and 2 puffs in the evening.Rinse mouth with water after use to reduce aftertaste and incidence of candidiasis. Do not swallow.. LANCETS (ONETOUCH DELICA) LANCETS 30G TEST SUGAR ONCE A DAY MEMANTINE (NAMENDA) 5 MG TABLET Take 5 mg by mouth 2 times daily. METFORMIN (GLUCOPHAGE) 500 MG TABLET Take 500 mg by mouth in the morning and 500 mg in the evening.Take with meals. METOPROLOL TARTRATE (LOPRESSOR) 25 MG TABLET Take 25 mg by mouth 2 times daily. METOPROLOL TARTRATE (LOPRESSOR) 25 MG TABLET Take 0.5 tablets by mouth 2 times daily. MIRTAZAPINE (REMERON) 15 MG TABLET Take 15 mg by mouth. OMEPRAZOLE (PRILOSEC) [address] CAPSULE Take 40 mg by mouth every morning (before breakfast). Do notcrush or chew. OMEPRAZOLE (PRILOSEC) [address] CAPSULE Take 1 capsule by mouth daily. ONETOUCH ULTRA TEST STRIP TEST SUGAR ONCE A DAY OXYBUTYNIN (DITROPAN) 5 MG TABLET POTASSIUM CHLORIDE CR (KLOR-CON M10) 10 MEQ ER TABLET Take 10 mEq by mouth 2 times daily. Do not crush or chew. POTASSIUM CHLORIDE CR (KLOR-CON M10) 10 MEQ ER TABLET Take 1 tablet by mouth in the morning and 1 tablet in the evening. Take with meals. POTASSIUM CHLORIDE ER (MICRO-K) 10 MEQ ER CAPSULE TAKE 1 TABLET BY MOUTH TWICE DAILY WITH MEALS PREDNISOLONE ACETATE (PRED-FORTE) 1 % OPHTHALMIC SUSPENSION Dose = 1 drop(s), Eyes, both, BID, # 10 mL, 0 Refill(s) RIVASTIGMINE (EXELON) 3 MG CAPSULE SERTRALINE (ZOLOFT) 50 MG TABLET Take 50 mg by mouth daily. THERAPEUTIC MULTIVITAMIN-MINERALS (THERAGRAN-M) TABLET Take 1 tablet by mouth daily. TIZANIDINE (ZANAFLEX) 4 MG TABLET TAKE 1 TABLET BY MOUTH THREE TIMES A DAY NEEDED *50 TABLETS TOLAST 30 DAYS* TORSEMIDE (DEMADEX) 20 MG TABLET Take 20 mg by mouth daily. TORSEMIDE (DEMADEX) 20 MG TABLET Take 1 tablet by mouth daily. URSODIOL (ACTIGALL) 300 MG CAPSULE TAKE 1 CAPSULE BY MOUTH TWICE DAILY ALLERGIES Ticagrelor FAMILY HISTORY Family History Problem Relation Name Age of Onset High Blood Pressure Mother Heart disease Brother Cancer Brother Coronary artery disease Brother High Blood Pressure Brother Diabetes Brother SOCIAL HISTORY Social History Socioeconomic History Marital status: Tobacco Use Smoking status: Never Smokeless tobacco: Never Vaping Use Vaping Use: Never used PHYSICAL EXAM Vitals: 06/13/22 1209 06/13/22 1315 06/13/22 1400 06/13/22 1431 BP: 92/51 123/56 97/84 (!) 144/62 Pulse: 86 76 72 80 Resp: 14 Temp: 36.8 C (98.2 F) TempSrc: Temporal SpO2: 99% 99% 97% 98% Physical Exam Vitals and nursing note reviewed. HENT: Head: Contusion present. No raccoon eyes or Lind's sign. 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 No trismus or malocclusion. Eyes: Extraocular Movements: Extraocular movements intact. Conjunctiva/sclera: Conjunctivae normal. Pupils: Pupils are equal, round, and reactive to light. Cardiovascular: Rate and Rhythm: Normal rate and regular rhythm. Heart sounds: Normal heart sounds. Pulmonary: Effort: Pulmonary effort is normal. Breath sounds: Normal breath sounds. Musculoskeletal: Cervical back: Normal range of motion. Right lower leg: Edema present. Left lower leg: Edema present. Skin: General: Skin is warm. Coloration: Skin is not jaundiced. Findings: Bruising (forehead) present. Neurological: Mental Status: She is alert. Psychiatric: Attention and Perception: Perception normal. She is inattentive. Cognition and Memory: Memory is impaired. She exhibits impaired recent memory. SCREENINGS Medical decision making Medical Decision Making Problems Addressed: Anemia: complicated acute illness or injury Hyponatremia: complicated acute illness or injury Amount and/or Complexity of Data Reviewed Labs: ordered. Decision-making details documented in ED Course. Radiology: ordered. Decision-making details documented in ED Course. ECG/medicine tests: ordered. Decision-making details documented in ED Course. Risk OTC drugs. Prescription drug management. Decision regarding hospitalization. DIAGNOSTIC RESULTS Procedures/EKG: Physician EKG interpretation can be found in [facility] if done RADIOLOGY (Per Emergency Physician): Interpretation per the Radiologist below, if available at the time of this note: XR pelvis 1 or 2 views Final Result No fracture or dislocation. Report Dictated on Electronically Signed By: Jovi Davis Electronically Signed Date/Time: 06/13/2022 3:[address] head wo IV contrast Final Result 1. No acute intracranial findings. 2. Probable chronic ischemic and atrophic changes. Report Dictated on Electronically Signed By: Niko Talley Electronically Signed Date/Time: 06/13/2022 3:16 PM EDT LABS: Labs Reviewed CBC WITH AUTO DIFFERENTIAL - Abnormal Result Value Auto WBC 6.9 RBC 3.51 (*) Hemoglobin 9.5 (*) Hematocrit 28.7 (*) MCV 81.7 MCH 26.9 MCHC 33.0 RDW 14.6 (*) Platelets 188 MPV 9.2 nRBC 0.0 Neutrophils Relative 75.0 Lymphocytes Relative 19.0 (*) Monocytes Relative 5.0 Eosinophils Relative 0.5 (*) Basophils Relative 0.5 Neutrophils Absolute 5.2 Lymphocytes Absolute 1.3 Monocytes Absolute 0.3 Eosinophils Absolute 0.0 Basophils Absolute 0.0 COMPREHENSIVE METABOLIC PANEL - Abnormal SODIUM 134 (*) POTASSIUM 3.7 CHLORIDE 104 CARBON DIOXIDE 27 ANION GAP 3 UREA NITROGEN 26 (*) CREATININE 0.80 GLUCOSE 114 (*) CALCIUM 8.7 AST (SGOT) 311 (*) ALT 185 (*) ALKALINE PHOSPHATASE 176 (*) ALBUMIN 3.4 (*) BILIRUBIN, TOTAL 0.5 TOTAL PROTEIN 7.5 eGFR 75.1 LACTIC ACID, SEPSIS WITH REFLEX IF ELEVATED - Abnormal LACTIC ACID 2.2 (*) NT PRO BNP - Abnormal NT PRO BNP 575 (*) PROTHROMBIN TIME - Normal PROTHROMBIN TIME 11.6 INR 1.1 THYROID STIMULATING HORMONE - Normal THYROID STIMULATING HORMONE 3.546 D-DIMER,QUANTITATIVE - Normal D-DIMER, INNOVANCE <0.19 Narrative: Innovance D-Dimer values of <0.50 mg/L FEU can be used in combination with a pre-test probability model (e.g. Well's) to exclude pulmonary embolism (PE) disease, as well as an aid in the diagnosisof deep vein thrombosis (DVT). TROPONIN I - Normal TROPONIN I <0.012 Narrative: Patients with high levels of Biotin oral intake (ie >5 mg/day) may have falsely decreased Troponin levels. POCT GLUCOSE METER - Normal Glucose Blood, POC 114 BLOOD CULTURE OCCULT BLOOD, STOOL BLOOD CULTURE LACTIC ACID, PLASMA HEPATITIS PANEL, ACUTE ACETAMINOPHEN LEVEL Medications ordered: Medications magnesium sulfate IVPB premix 2,000 mg (2,000 mg IntraVENous New Bag 06/13/22 1536) acetaminophen (Tylenol) tablet 650 mg (650 mg Oral Given 06/13/22 1538) ED Course as of 06/13/22 1543 Sat June 13, 2022 1526 Hemoglobin(!): 9.5 Prior medical records were reviewed: hgb decreased by 3 units [NM] 1527 AST (SGOT)(!): 311 Prior medical records were reviewed: worse [NM] 1528 NT PRO BNP(!): 575 Less < 1800 units unlikely chf. [NM] 1535 CT head wo IV contrast nad [NM] 1535 XR pelvis 1 or 2 views nad [NM] 1535 ECG 12 lead Sr, no ischemia [NM] ED Course User Index [NM] Eric Cintron MD Diagnoses as of 06/13/22 1543 Anemia Hyponatremia Hepatitis * No order type specified * Couple low blood pressure readings with narrow pulse pressure but then blood pressure was high. Magnesium sulfate IV as she is on a diuretic. Serial hemoglobins. Ordered hepatitis panel, Tylenol level. Further evaluation treatment by Dr. Morton. REVAL: CRITICAL CARE TIME CONSULTS: None PROCEDURES: Procedures FINAL IMPRESSION 1. Anemia 2. Hyponatremia 3. Hepatitis DISPOSITION/PLAN DISPOSITION Admit 06/13/2022 03:32:32 PM Case was discussed with Dr. Mita Morton and patient was accepted for hospitalization. Thank PATIENT REFERRED TO: No follow-up provider specified. I prescribed: New Prescriptions No medications on file (Comment: this report has been produced using speech recognition software and may contain errors related to that system including errors in grammar, punctuation, and spelling, as well as words and phrases that may be inappropriate) ERIC CINTRON MD (electronically signed) Eric Cintron MD 06/13/221542 [facility] [id number] Younger [facility] June 01, 2022 11:43pm Note Date/Time June 01, 2022 11: 15pm [facility] Medical Records Department [address] [place] [address] Emergency Department Summary 06/01/22 MR#: [id number] Acct: [id number] Name: PREMA VILLALPANDO Rep #:[id number] : 1940 81 From: Xavier Younger MD PCP: Mita Morton DO Status:REG ER Location: ED [facility] History of Present Illness Chief Complaint: [facility] Medical History (Updated 06/01/22 @ 23:[address] Xavier Younger MD) Anemia Atherosclerotic heart disease of [place] coronary artery without angina pectoris Dementia Diabetes Dyslipidemia Gallstone of bile duct with gallbladder inflammation h/o throat surgery H/O transfusion of whole blood Hx of blood clots Hyperlipidemia Hypertension Iron deficiency anemia, unspecified Paroxysmal atrial fibrillation Persistent atrial fibrillation Wears hearing aid in both ears Home Medications Atorvastatin Calcium 80 mg PO DAILY 10/18/18 [History Last Taken Unknown] Omeprazole [Prilosec] 40 mg PO DAILY 10/18/18 [History Last Taken Unknown] aspirin 81 mg chewable tablet 81 mg PO DAILY@0800 10/18/18 [History Last Taken Unknown] clopidogrel 75 mg tablet 75 mg PO DAILY 10/18/18 [History Last Taken Unknown] potassium chloride 10 mEq tablet,extended release 10 meq PO BID 10/18/18 [History Last Taken Unknown] sertraline 50 mg tablet 50 mg PO DAILY 10/18/18 [History Last Taken Unknown] torsemide 20 mg tablet 20 mg PO DAILY 10/18/18 [History Last Taken Unknown] clotrimazole 10 mg sophie 10 mg PO TID PRN PRN Mouth Irritation 05/12/22 [History Last Taken Unknown] memantine 10 mg tablet 10 mg PO DAILY 05/12/22 [History Last Taken Unknown] metformin 500 mg tablet 500 mg PO BID 05/12/22 [History Last Taken Unknown] metoprolol tartrate 25 mg tablet 12.5 mg PO DAILY 05/12/22 [History Last Taken Unknown] mirtazapine 15 mg tablet 15 mg PO QHS 05/12/22 [History Last Taken Unknown] oxybutynin chloride 5 mg tablet 5 mg PO BID 05/12/22 [History Last Taken Unknown] tizanidine 4 mg tablet 4 mg PO TID PRN PRN Muscle Spasm 05/12/22 [History Last Taken Unknown] nystatin 100,000 unit/mL oral suspension 200,000 unit (2 mL) PO Q6H 7 days #56 mL 05/13/22 [Rx Last Taken Unknown] Allergy/AdvReac Type Severity Reaction Status Date / Time ticagrelor [From Brilinta] Allergy Shortness Verified 06/01/22 19:10 of breath Family History Other no pertinent family medical hsitory Surgical History H/O colonoscopy H/O eye surgery H/O heart artery stent Social History Smoking Status: Never smoker EXAM Physical Exam Const Vital Signs: 06/01/22 19:08 06/01/22 20:35 Temperature 98.0 F Temperature Source Temporal Pulse Rate 77 Respiratory Rate 18 Respiratory Effort Normal Respiratory Pattern Normal Blood Pressure 115/47 L Blood Pressure Mean 69 Pulse Ox 98 Oxygen Delivery Method Room Air MDM MDM MDM Narrative Medical decision making narrative: Patient CBC shows mild anemia but better than her baseline. Electrolytes show just a slight increase in BUN/creatinine. There may be a small component of dehydration but she is eating and drinking now. Glucose was 124. Liver function test did show a slight bump of AST ALT and alk phos. But she is eating and drinking and has no pain whatsoever. Urine was cath urine that showed 0-5 white cells no sign of infection. COVID and influenza are negative. My independent interpretation the patient's CT of the head showed atrophy but noacute process similar to final read. Chest x-ray showed no acute process. There was sign of a hiatal hernia seen. I talked with the daughter. 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 The daughter is concerned because she is sleeping more than normal. But she is still eating and drinking. She is mentally at her baseline. She is also not walking as much. Daughter states she kind of shuffles around the house. We are getting her up and walking here to see how she does. Patient's EKG shows atrial fibrillation but she has rate control and she has a history of this. It sounds like she is not on anticoagulation due to risks of falls and injury that exceed the benefit. Her EKG shows what appears to be atrial fibrillation here. But there are often times she is clearly in a normal sinus rhythm with very discernible P waves in a regular rate on the monitor. I do not think this is the source of her weakness. The patient up and walked and she actually walked very smoothly steadily and easily. No ataxia. No problems at all. I had a long talk with the daughter. We stated that there is a slight bump in liver function test but no symptoms related to this. She is eating and drinking and has no abdominal pain. There are signs of just very mild dehydration with elevation of BUN and creatinine. We will give a little bit of fluids here. Just a small amount as she is also a very small person. Patient is eating and drinking. She is at her baseline. There is not a reason to keep her in the hospital at this time. Certainly if she develops further symptoms, fevers, neurologic symptoms trouble breathing or any other concerns they should bring her back. Lab Data Attestation: I reviewed the patient's lab results. Labs: Laboratory Results - last 24 hr 06/01/22 06/01/22 06/01/22 20:16 20:16 20:16 WBC 7.0 RBC 3.71 L Hgb 10.0 L Hct 31.7 L MCV 85.4 MCH 27.0 MCHC 31.5 L RDW Std Deviation 42.8 RDW Coeff of [place] 13.8 Plt Count 248 MPV 10.5 Immature Gran % (Auto) 0.300 Neut % (Auto) 70.1 H Lymph % (Auto) 22.3 [place] % (Auto) 5.5 Eos % (Auto) 1.1 Baso % (Auto) 0.7 Absolute Neuts (auto) 4.9 Absolute Lymphs (auto) 1.57 Nucleated RBC % 0 Sodium 137 Potassium 3.5 Chloride 105 Carbon Dioxide 31.0 Anion Gap 1 L BUN 30 H Creatinine 0.91 Est GFR (MDRD) Af Amer 77 Est GFR (MDRD) Non-Af 64 BUN/Creatinine Ratio 33.1 H Glucose 124 H Calcium 8.6 Total Bilirubin 0.30 Direct Bilirubin 0.25 AST 75 H ALT 69 H Alkaline Phosphatase 207 H Total Protein 7.8 Albumin 2.3 L Globulin 5.5 H Urine Color Urine Clarity Urine pH Ur Specific [place] Urine Protein Urine Glucose (UA) Urine Ketones Urine Occult Blood Urine Nitrite Urine Bilirubin Urine Urobilinogen Ur Leukocyte Esterase Urine RBC Urine WBC Ur Squamous Epith Cells Urine Bacteria Urine Mucus 06/01/22 21:40 WBC RBC Hgb Hct MCV MCH MCHC RDW Std Deviation RDW Coeff of [place] Plt Count MPV Immature Gran % (Auto) Neut % (Auto) Lymph % (Auto) [place] % (Auto) Eos % (Auto) Baso % (Auto) Absolute Neuts (auto) Absolute Lymphs (auto) Nucleated RBC % Sodium Potassium Chloride Carbon Dioxide Anion Gap BUN Creatinine Est GFR (MDRD) Af Amer Est GFR (MDRD) Non-Af BUN/Creatinine Ratio Glucose Calcium Total Bilirubin Direct Bilirubin AST ALT Alkaline Phosphatase Total Protein Albumin Globulin Urine Color Yellow Urine Clarity Sl. Cloudy Urine pH 5.0 Ur Specific [place] 1.015 Urine Protein 30 H Urine Glucose (UA) Normal Urine Ketones Negative Urine Occult Blood Negative Urine Nitrite Negative Urine Bilirubin Negative Urine Urobilinogen 1 H Ur Leukocyte Esterase 25 H Urine RBC 0 SEEN Urine WBC 0-5 SEEN Ur Squamous Epith Cells 0-5 SEEN Urine Bacteria 0 SEEN Urine Mucus 0 SEEN Radiography Diagnostic Testing: Clinical Impression(s) from Imaging Studies Brain CT 06/01/22 21:20 IMPRESSION: No acute intracranial pathology. Diffuse parenchymal volume loss, likely age-related and chronic small vessel ischemic changes unchanged compared to prior exam. Electronically Signed: Dimitris Medina DO at 22:02 EDT , Chest X-Ray 06/01/22 21:40 IMPRESSION: 1. No radiographic evidence of acute cardiopulmonary disease. 2. Hiatal hernia. Electronically Signed: Dimitris Medina DO at 22:18 EDT , EKG Initial EKG: Comments: EKG done for generalized weakness read by me shows what appears to be atrial fibrillation with occasional PVCs. No acute ST elevation or depression. QRS duration and QTc are normal. Discharge Plan Triage Chief Complaint: Fatigue ED Provider: Xavier Younger Dx/Rx/DC Orders Clinical Impression: Tiredness, Generalized weakness, History of dementia, Mild dehydration Instructions: ED Dehydration (Adult), ED Weakness (Uncertain Cause) Prescriptions: No Action Atorvastatin Calcium 80 MG tablet 80 mg PO DAILY torsemide 20 MG tablet 20 mg PO DAILY potassium chloride 10 MEQ tablet extended release 10 meq PO BID clopidogrel 75 MG tablet 75 mg PO DAILY aspirin 81 MG tablet,chewable 81 mg PO DAILY@0800 sertraline 50 MG tablet 50 mg PO DAILY Omeprazole [Prilosec] 40 MG capsule 40 mg PO DAILY clotrimazole 10 mg sophie 10 mg PO TID PRN PRN (Reason: Mouth Irritation) Label Comments: DISSOLVE 1 SOPHIE BY MOUTH 3 TIMES A DAY WHILE ON IMMUNOSUPPRESSIVE MEDICINE metformin 500 mg tablet 500 mg PO BID Label Comments: TAKE 1 TABLET BY MOUTH TWICE A DAY WITH FOOD FOR 90 DAYS tizanidine 4 mg tablet 4 mg PO TID PRN PRN (Reason: Muscle Spasm) Label Comments: TAKE 1 TABLET BY MOUTH THREE TIMES A DAY NEEDED *50 TABLETS TO LAST 30 DAYS* oxybutynin chloride 5 mg tablet 5 mg PO BID Label Comments: TAKE ONE (1) TABLET BY MOUTH TWICE DAILY memantine 10 mg tablet 10 mg PO DAILY mirtazapine 15 mg tablet 15 mg PO QHS Label Comments: TAKE 1 TABLET BY MOUTH ONCE DAILY AT BEDTIME metoprolol tartrate 25 mg tablet 12.5 mg PO DAILY Label Comments: TAKE 1/2 TABLET BY MOUTH DAILY nystatin 100,000 unit/mL suspension 200,000 unit PO Q6H 7 Days Qty: 56 0RF Rx Instructions: administer 1/2 of dose in each side of the mouth Primary Care Provider: Mita Morton Referrals: Mita Morton DO [Primary Care Provider] - 3-5 Days Disposition Disposition: Home, Self Care What to do if you have Problems For any increased pain, shortness of breath, bleeding, nausea or vomiting, chestpain, or any unexpected problems, contact your Primary Care Provider. Call [facility] ([phone]) or report to the closest Emergency Room. Call 911 if necessary. 06/01/220 <Electronically signed by Xavier Younger MD> Cosigner Signature (if applicable): CC: Mita Morton DO ~ Signed [facility] Work Phone: [phone] 272-259704-05-[address] Pack [facility] May 13, 2022 3:47pm Note Date/Time May 13, 2022 3:46 pm [facility] Medical Records Department [address] [place] [address] Instructions for Home/Discharge Instructions 05/13/22 1545 MR#: [id number] Acct: [id number] Name: PREMA VILLALPANDO Rep #:[id number] : 1940 81 From: Jovi galvez MD PCP: Mita Morton DO Status:ADM WARD Discharge Instructions Diet Discharge Diet: No restrictions and Soft diet Activity Discharge Activity: Return to Normal Activity Dressing / Incision Call your doctor if you observe: Fever of 101 or Higher, Shortness of breath, Dizziness, Fainting spells, Swelling in the ankles, Chest pain and Increased palpitations (irregular heartbeat) Follow Up Care Test Results: Test results from this visit will be discussed in further detail at your follow- up appointment, if applicable. Discharge Plan Admission Admit Date/Time: 05/12/22 11:13 Attending Provider: Jovi Pack Primary Care Provider: Mita Morton Discharge Orders/Prescriptions Prescriptions: New nystatin 100,000 unit/mL suspension 200,000 unit PO Q6H 7 Days Qty: 56 0RF Rx Instructions: administer 1/2 of dose in each side of the mouth Continued Atorvastatin Calcium 80 MG tablet 80 mg PO DAILY torsemide 20 MG tablet 20 mg PO DAILY potassium chloride 10 MEQ tablet extended release 10 meq PO BID clopidogrel 75 MG tablet 75 mg PO DAILY aspirin 81 MG tablet,chewable 81 mg PO DAILY@0800 sertraline 50 MG tablet 50 mg PO DAILY Omeprazole [Prilosec] 40 MG capsule 40 mg PO DAILY clotrimazole 10 mg sophie 10 mg PO TID PRN PRN (Reason: Mouth Irritation) Label Comments: DISSOLVE 1 SOPHIE BY MOUTH 3 TIMES A DAY WHILE ON IMMUNOSUPPRESSIVE MEDICINE metformin 500 mg tablet 500 mg PO BID Label Comments: TAKE 1 TABLET BY MOUTH TWICE A DAY WITH FOOD FOR 90 DAYS tizanidine 4 mg tablet 4 mg PO TID PRN PRN (Reason: Muscle Spasm) Label Comments: TAKE 1 TABLET BY MOUTH THREE TIMES A DAY NEEDED *50 TABLETS TO LAST 30 DAYS* oxybutynin chloride 5 mg tablet 5 mg PO BID Label Comments: TAKE ONE (1) TABLET BY MOUTH TWICE DAILY memantine 10 mg tablet 10 mg PO DAILY mirtazapine 15 mg tablet 15 mg PO QHS Label Comments: TAKE 1 TABLET BY MOUTH ONCE DAILY AT BEDTIME metoprolol tartrate 25 mg tablet 12.5 mg PO DAILY Label Comments: TAKE 1/2 TABLET BY MOUTH DAILY Referrals / Follow Up: Mita Morton DO [Primary Care Provider] - Within 1 Week Friend,DO Roque [Med Staff - Active Staff] - Within 3 Months Disposition Disposition (needs filled in before D/C Order can be placed): Home, Self Care 05/13/22 1547<Electronically signed by Jovi Pack MD>Jovi Pack MD CC: Mita Morton DO ~ Signed [facility] Work Phone: [phone]) 599-481904-05-[address] Pack [facility] May 13, 2022 2:10pm Note Date/Time May 13, 2022 2:[address] [facility] Medical Records Department [address] [place] [id number] Discharge Summary 05/13/22 1406 MR#: [id number] Acct: [id number] Name: PREMA VILLALPANDO Rep #:[id number] : 1940 81 From: Jovi galvez MD PCP: Mita Morton DO Status:ADM WARD Location: [place] [address] Providers Date of Admission: 05/12/22 Primary Care Physician: Dr. Mita Morton DO Consultations 05/12/22 12:48 Consult: Gastroenterology Routine Consulting Provider: [facility] Reason for Consult: Dysphagia EMERGENT Consult: No MD Notified: Yes Date Notified: 05/12/22 Time Notified: 11:18 Method of Notification: ED Physician Initiated Reason For Visit: HIATAL HERNIA Diagnosis Discharge Diagnosis (1) Dysphagia: Status: Acute Code(s): R13.10 - Dysphagia, unspecified Medications at Discharge Home Medications Atorvastatin Calcium 80 mg PO DAILY 10/18/18 Omeprazole [Prilosec] 40 mg PO DAILY 10/18/18 aspirin 81 mg chewable tablet 81 mg PO DAILY@0800 10/18/18 clopidogrel 75 mg tablet 75 mg PO DAILY 10/18/18 potassium chloride 10 mEq tablet,extended release 10 meq PO BID 10/18/18 sertraline 50 mg tablet 50 mg PO DAILY 10/18/18 torsemide 20 mg tablet 20 mg PO DAILY 10/18/18 clotrimazole 10 mg sophie 10 mg PO TID PRN PRN Mouth Irritation 05/12/22 memantine 10 mg tablet 10 mg PO DAILY 05/12/22 metformin 500 mg tablet 500 mg PO BID 05/12/22 metoprolol tartrate 25 mg tablet 12.5 mg PO DAILY 05/12/22 mirtazapine 15 mg tablet 15 mg PO QHS 05/12/22 oxybutynin chloride 5 mg tablet 5 mg PO BID 05/12/22 tizanidine 4 mg tablet 4 mg PO TID PRN PRN Muscle Spasm 05/12/22 nystatin 100,000 unit/mL oral suspension 200,000 unit (2 mL) PO Q6H 7 days #56 mL 05/13/22 Hospital Course Operations None Procedures EGD Summary of Care Provided Minutes Spent on Discharge: 35 Hospital Course: Per HPI: PREMA VILLALPANDO, is a 81 F who presents to the hospital with difficulty swallowing.? This has been an ongoing issue she had a previous esophageal dilatation years ago and then had another 1 at a hospital in [place] in January 2022.? She has been having increasing difficulty swallowing and this morning had difficulty swallowing her pills.? She was able to eat and drink in the ER and she has not been losing any weight.? No nausea or vomiting.? She was brought to the emergency room because of a concern for not being able to swallow her pills it does not appear that any outpatient management has been sought so far.? Imaging demonstrates a large hiatal hernia.? Unfortunately secondary to her dementia she is a poor historian and there is no family at bedside so information was obtained from chart review and discussing the case with the ED physician. Hospital Course: 1. Dysphagia due to Schatzki's ring and esophageal candidiasis ? She has had 2 previous dilatations ? Imaging demonstrates a large hiatal hernia ? She is able to eat and drink and has not lost any weight ? EGD today demonstrated a Schatzki's ring which was dilated as well as esophageal candidiasis likely related to her history of diabetes as well as her age and her use of a PPI. In discussion with gastroenterology they felt that she would be okay for discharge today will recommend nystatin 200,000 units p.o. 4 times daily for 7 days and would recommend a prolonged transition to an H2 yessenia instead of the PPI if possible. We will plan on a one-time 500,000 unit dose here today prior to discharge. 2. CAD status post/HTN/HLD/A-fib ? She is not on any anticoagulation ? Continue with her home blood pressure and cholesterol medications ? Continue with her aspirin and Plavix 3. DM2 ? Hold her metformin ? We will place her on a sliding scale insulin with Accu-Cheks ACHS ? We will make adjustments as necessary ? She can resume her home medications on discharge 4. GERD ? Stable ? Continue with PPI, but would recommend transitioning to an H2 yessenia given her esophageal candidiasis 5. Anxiety/depression/dementia ? Stable ? Continue with her home medications Weight / BMI Weight Weight: 97 lb 10.636 oz Body Mass Index (BMI) 19.7 ABG / Lab / Microbiology Data Result Diagrams: 05/13/22 05:40 05/13/22 05:40 Laboratory: Laboratory Results - last 24 hr 05/12/22 17:06: POC Glucose 110 H 05/12/22 21:54: POC Glucose 95 05/13/22 05:40: WBC 4.8, RBC 3.19 L, Hgb 8.7 L, Hct 28.4 L, MCV 89.0, MCH 27.3, MCHC 30.6 L, RDW Std Deviation 42.1, RDW Coeff of Galen 13.0, Plt Count 178, MPV 11.9, Immature Gran % (Auto) 0.200, Neut % (Auto) 61.7, Lymph % (Auto) 21.4, Bandera % (Auto) 11.8 H, Eos % (Auto) 4.1, Baso % (Auto) 0.8, Absolute Neuts (auto) 3.0, Absolute Lymphs (auto) 1.03, Nucleated RBC % 0 05/13/22 05:40: Sodium 139, Potassium 3.9, Chloride 106, Carbon Dioxide 28.0, Anion Gap 5, BUN 20 H, Creatinine 0.86, Estim Creat Clear Calc 37.10, Est GFR (MDRD) Af Amer 82, Est GFR (MDRD) Non-Af 68, BUN/Creatinine Ratio 23.3 H, Glucose 102, Calcium 9.1 05/13/22 05:40: PT 14.7, INR 1.2, APTT 34.4 05/13/22 05:40: Hemoglobin A1c 5.7 H 05/13/22 05:40: Iron 39 L, TIBC 406, Iron Saturation 9.6 L, Ferritin 17 05/13/22 06:38: POC Glucose 102 05/13/22 11:45: POC Glucose 89 Meaningful Use Info Meaningful Use Diagnoses (Choose all that apply): None applicable Discharge Plan Admission Admit Date/Time: 05/12/22 11:13 Attending Provider: Jovi Pack Primary Care Provider: Mita Morton Discharge Orders/Prescriptions Prescriptions: New nystatin 100,000 unit/mL suspension 200,000 unit PO Q6H 7 Days Qty: 56 0RF Rx Instructions: administer 1/2 of dose in each side of the mouth Continued Atorvastatin Calcium 80 MG tablet 80 mg PO DAILY torsemide 20 MG tablet 20 mg PO DAILY potassium chloride 10 MEQ tablet extended release 10 meq PO BID clopidogrel 75 MG tablet 75 mg PO DAILY aspirin 81 MG tablet,chewable 81 mg PO DAILY@0800 sertraline 50 MG tablet 50 mg PO DAILY Omeprazole [Prilosec] 40 MG capsule 40 mg PO DAILY clotrimazole 10 mg sophie 10 mg PO TID PRN PRN (Reason: Mouth Irritation) Label Comments: DISSOLVE 1 SOPHIE BY MOUTH 3 TIMES A DAY WHILE ON IMMUNOSUPPRESSIVE MEDICINE metformin 500 mg tablet 500 mg PO BID Label Comments: TAKE 1 TABLET BY MOUTH TWICE A DAY WITH FOOD FOR 90 DAYS tizanidine 4 mg tablet 4 mg PO TID PRN PRN (Reason: Muscle Spasm) Label Comments: TAKE 1 TABLET BY MOUTH THREE TIMES A DAY NEEDED *50 TABLETS TO LAST 30 DAYS* oxybutynin chloride 5 mg tablet 5 mg PO BID Label Comments: TAKE ONE (1) TABLET BY MOUTH TWICE DAILY memantine 10 mg tablet 10 mg PO DAILY mirtazapine 15 mg tablet 15 mg PO QHS Label Comments: TAKE 1 TABLET BY MOUTH ONCE DAILY AT BEDTIME metoprolol tartrate 25 mg tablet 12.5 mg PO DAILY Label Comments: TAKE 1/2 TABLET BY MOUTH DAILY Referrals / Follow Up: Mita Morton DO [Primary Care Provider] - Disposition Disposition (needs filled in before D/C Order can be placed): Shelter Facility Charges/Coding Visit Charges Inpatient E&M: 90542 Disch Hosp >30min 05/13/22 1410 <Electronically signed by Jovi Pack MD> Cosigner Signature (if applicable): CC: Dr. Jovi Pack MD; Mita Morton DO~ Signed [facility] Work Phone: [phone]) 822-186104-05-[address] Pack [facility] May 13, 2022 1:53pm Note Date/Time May 13, 2022 1:51 pm [facility] Medical Records Department [address] [place] [address] Transfer to [facility] MR#: [id number] Acct: [id number] Name: PREMA VILLALPANDO Rep #:[id number] : 1940 81 From: Jovi galvez MD PCP: Mita Morton DO Status:ADM WARD Certification of patient admission REQUIRED AT TIME OF ADMISSION. I CERTIFY THAT POST-HOSPITAL ECF SERVICES ARE REQUIRED TO BE GIVEN ON AN IN-PATIENT BASIS BECAUSE OF THE ABOVE NAMED PATIENT'S NEED FOR ALF CARE ON A CONTINUING BASIS FOR THE CONDITION(S) FOR WHICH HE/SHE WAS RECEIVING IN-PATIENT HOSPITAL SERVICES PRIOR TO HIS/HER TRANSFER TO THE [facility]. 05/13/22 1353<Electronically signed by Jovi Pack MD> Diet Diet Order/Speech Therapy: 05/13/22 00:01 NPO [Diet: Nothing Per Oral] Is pt able to select menu?: Yes Routine Orders/Code Status Routine Lab Work: CBC and BMP Wound(s) RT ABD: Wound Type: Abrasion Therapies Physical Therapy: Eval and Treat Occupational Therapy: Eval and Treat Problem/Diagnosis (1) Dysphagia: Status: Acute Code(s): R13.10 - Dysphagia, unspecified Plan 1. Dysphagia ? She has had 2 previous dilatations ? Imaging demonstrates a large hiatal hernia ? She is able to eat and drink and has not lost any weight ? Plan for EGD today, appreciate GIs assistance 2. CAD status post/HTN/HLD/A-fib ? She is not on any anticoagulation ? Continue with her home blood pressure and cholesterol medications ? Continue with her Plavix 3. DM2 ? Hold her metformin ? We will place her on a sliding scale insulin with Accu-Cheks ACHS ? We will make adjustments as necessary 4. GERD ? Stable ? Continue with PPI 5. Anxiety/depression/dementia ? Stable ? Continue with her home medications DVT: SCDs Allergies/Procedures Done in Hospital Allergies ticagrelor [From Brilinta] Allergy (Verified 05/12/22 12:19) Shortness of breath Procedures: EGD Type of Care/Length of Stay Estimated LOS: Convalescent Care Less Than 30 days Type of Care Needed: Skilled Rehab Potential: Good Prognosis: Good Additional Orders/Day of Discharge Day of Discharge: 05/13/22 Dietary and Speech Recommendations Dietitian Recommendations/Changes: Continue Cardiac diet with texture/consistency per [employer] WORK[employer]/MD. Continue 120mL EPHP TID with medpass to provide supplemental energy. Discharge Plan Admission Admit Date/Time: 05/12/22 11:13 Attending Provider: Jovi Pack Primary Care Provider: Mita Morton Discharge Orders/Prescriptions Prescriptions: New nystatin 100,000 unit/mL suspension 200,000 unit PO Q6H 7 Days Qty: 56 0RF Rx Instructions: administer 1/2 of dose in each side of the mouth Continued Atorvastatin Calcium 80 MG tablet 80 mg PO DAILY torsemide 20 MG tablet 20 mg PO DAILY potassium chloride 10 MEQ tablet extended release 10 meq PO BID clopidogrel 75 MG tablet 75 mg PO DAILY aspirin 81 MG tablet,chewable 81 mg PO DAILY@0800 sertraline 50 MG tablet 50 mg PO DAILY Omeprazole [Prilosec] 40 MG capsule 40 mg PO DAILY clotrimazole 10 mg sophie 10 mg PO TID PRN PRN (Reason: Mouth Irritation) Label Comments: DISSOLVE 1 SOPHIE BY MOUTH 3 TIMES A DAY WHILE ON IMMUNOSUPPRESSIVE MEDICINE metformin 500 mg tablet 500 mg PO BID Label Comments: TAKE 1 TABLET BY MOUTH TWICE A DAY WITH FOOD FOR 90 DAYS tizanidine 4 mg tablet 4 mg PO TID PRN PRN (Reason: Muscle Spasm) Label Comments: TAKE 1 TABLET BY MOUTH THREE TIMES A DAY NEEDED *50 TABLETS TO LAST 30 DAYS* oxybutynin chloride 5 mg tablet 5 mg PO BID Label Comments: TAKE ONE (1) TABLET BY MOUTH TWICE DAILY memantine 10 mg tablet 10 mg PO DAILY mirtazapine 15 mg tablet 15 mg PO QHS Label Comments: TAKE 1 TABLET BY MOUTH ONCE DAILY AT BEDTIME metoprolol tartrate 25 mg tablet 12.5 mg PO DAILY Label Comments: TAKE 1/2 TABLET BY MOUTH DAILY Referrals / Follow Up: Mita Morton DO [Primary Care Provider] - Disposition Disposition (needs filled in before D/C Order can be placed): Shelter Facility 05/13/22 1353 <Electronically signed by Jovi Pack MD> Cosigner Signature (if applicable): CC: Mita Morton DO ~ [facility] Work Phone: [phone]) [phone] Pack [facility] May 13, 2022 9:17am Note Date/Time May 13, 2022 9:[address] [facility] Medical Records Department [address] [place] [address] Progress Note - Hospitalist 05/13/22909 MR#: [id number] Acct: [id number] Name: PREMA VILLALPANDO Rep #:[id number] : 1940 81 From: Jovi galvez MD PCP: Mita Morton DO Status:ADM WARD Location: [place] [address] Subjective Subjective Doing well, no issues overnight Objective Data Objective Data Vital Signs: Vital Signs Temp Pulse Resp BP Pulse Ox O2 Del Method 98.3 F 77 16 139/70 H 99 Room Air 05/13/22 08:07 05/13/22 08:07 05/13/22 08:07 05/13/22 08:07 05/13/22 08:07 05/13/22 08:07 Oxygen Delivery Method Room Air Weight: 97 lb 10.636 oz Body Mass Index (BMI) 19.7 Intake & Output: Intake and Output for Last 24 Hours 05/12/22 05/13/22 05/14/22 03:59 03:59 03:59 Output Total 0 / 0 Balance 0 / 0 Lab / Micro Data Result Diagrams: 05/13/22 05:40 05/13/22 05:40 Labs: Laboratory Results - last 24 hr 05/12/22 10:15: WBC 5.6, RBC 3.40 L, Hgb 9.4 L, Hct 30.6 L, MCV 90.0, MCH 27.6, MCHC 30.7 L, RDW Std Deviation 42.2, RDW Coeff of Galen 12.9, Plt Count 175, MPV 11.5, Immature Gran % (Auto) 0.200, Neut % (Auto) 70.4 H, Lymph % (Auto) 17.0 L,Bandera % (Auto) 8.8, Eos % (Auto) 2.9, Baso % (Auto) 0.7, Absolute Neuts (auto) 4.0, Absolute Lymphs (auto) 0.95, Nucleated RBC % 0 05/12/22 10:15: Sodium 139, Potassium 3.9, Chloride 107, Carbon Dioxide 29.0, Anion Gap 3 L, BUN 22 H, Creatinine 0.88, Estim Creat Clear Calc 40.09, Est GFR (MDRD) Af Amer 80, Est GFR (MDRD) Non-Af 66, BUN/Creatinine Ratio 25.1 H, Glucose 99, Calcium 9.0 05/12/22 17:06: POC Glucose 110 H 05/12/22 21:54: POC Glucose 95 05/13/22 05:40: WBC 4.8, RBC 3.19 L, Hgb 8.7 L, Hct 28.4 L, MCV 89.0, MCH 27.3, MCHC 30.6 L, RDW Std Deviation 42.1, RDW Coeff of Galen 13.0, Plt Count 178, MPV 11.9, Immature Gran % (Auto) 0.200, Neut % (Auto) 61.7, Lymph % (Auto) 21.4, Bandera % (Auto) 11.8 H, Eos % (Auto) 4.1, Baso % (Auto) 0.8, Absolute Neuts (auto)3.0, Absolute Lymphs (auto) 1.03, Nucleated RBC % 0 05/13/22 05:40: Sodium 139, Potassium 3.9, Chloride 106, Carbon Dioxide 28.0, Anion Gap 5, BUN 20 H, Creatinine 0.86, Estim Creat Clear Calc 37.10, Est GFR (MDRD) Af Amer 82, Est GFR (MDRD) Non-Af 68, BUN/Creatinine Ratio 23.3 H, Glucose 102, Calcium 9.1 05/13/22 05:40: PT 14.7, INR 1.2, APTT 34.4 05/13/22 05:40: Hemoglobin A1c 5.7 H 05/13/22 06:38: POC Glucose 102 Radiography Diagnostic Testing: Radiology Impression Chest X-Ray 05/12/22 10:00 IMPRESSION: No acute abnormality is seen. Large hiatal hernia. Electronically Signed: Demar Toscano MD at 10:11 EDT , Physical Exam Narrative General: Alert, confused, Cooperative, No apparent distress HEENT: Atraumatic, PERRLA, EOMI, Normocephalic, hard of hearing hearing aid is in Oral: Moist Mucosa Neck: Supple, No JVD Lungs: Diminished, Normal air movement, No rhonchi, No wheeze, No rales Cardiovascular: Regular rate, Regular Rhythm, Normal S1, Normal S2, No murmurs Abdomen: Soft, Non Tender, Non-Distended, No Hepato-splenomegaly Extremities: No edema, Capillary Refill Less than 3 Seconds Skin: No rashes, No breakdown Musculoskeletal: No Tenderness to Palpation of Joints or Extremities Neurological: Cranial nerves II-XII grossly intact, Motor Exam 5/5 strength throughout, Sensory exam intact to light touch and pain Psych/Mental Status: Normal Affect, Appropriate Assessment & Plan Assessment/Plan (1) Dysphagia: PLAN: Plan 1. Dysphagia ? She has had 2 previous dilatations ? Imaging demonstrates a large hiatal hernia ? She is able to eat and drink and has not lost any weight ? Plan for EGD today, appreciate GIs assistance 2. CAD status post/HTN/HLD/A-fib ? She is not on any anticoagulation ? Continue with her home blood pressure and cholesterol medications ? Continue with her Plavix 3. DM2 ? Hold her metformin ? We will place her on a sliding scale insulin with Accu-Cheks ACHS ? We will make adjustments as necessary 4. GERD ? Stable ? Continue with PPI 5. Anxiety/depression/dementia ? Stable ? Continue with her home medications DVT: SCDs Charges/Coding Visit Charges Inpatient E&M: 51825 Subs Hosp L2 05/13/22 0917 <Electronically signed by Jovi Pack MD> Cosigner Signature (if applicable): CC: ~ Signed [facility] Work Phone: [phone]) 153-167504-05-2023 Procedure [facility] 05-13-2022 Procedure [facility]04-04-2023 Consult note Author Roque Herrera [facility] May 12, 2022 6:47pm Note Date/Time May 12, 2022 6:45 pm [facility] Medical Records Department [address] [place] [address] Consultation - GI 05/12/22 1844 MR#: [id number] Acct: [id number] Name: PREMA VILLALPANDO Rep #:[id number] : 1940 81 From: Roque Herrera DO PCP: Mita Morton DO Status:ADM WARD Location: [place] [address] HPI Consult Data Date of Consult: 05/12/22 HPI Narrative Reason for Consultation: Dysphagia HPI Narrative: PREMA VILLALPANDO, is a 81 F who presents with trouble swallowing. She was brought to the emergency department by her daughter for complaint of difficulty swallowing.? Patient apparently was having a hard time swallowing her meal yesterday.? She had a hard time swallowing her pills today.? Patient has historyof EGD with esophageal dilatation around of 2021.? She per daughter had been doing relatively well until recently.? She had had 1 prior dilatation years ago.? Patient currently at assisted living facility.? Patient has history of dementia and is somewhat of a poor historian.? Apparently she is able to swallow liquids.? Her last dilatation was in [place]. ?Imaging demonstrates a large hiatal hernia. [facility], [facility] Medical History (Updated 05/12/22 @ 18:[address] Roque Herrera DO) Anemia Atherosclerotic heart disease of [place] coronary artery without angina pectoris Dementia Diabetes Dyslipidemia Gallstone of bile duct with gallbladder inflammation h/o throat surgery H/O transfusion of whole blood Hx of blood clots Hyperlipidemia Hypertension Iron deficiency anemia, unspecified Paroxysmal atrial fibrillation Persistent atrial fibrillation Wears hearing aid in both ears Home Medications Atorvastatin Calcium 80 mg PO DAILY 10/18/18 [History Last Taken Unknown] Omeprazole [Prilosec] 40 mg PO DAILY 10/18/18 [History Last Taken Unknown] aspirin 81 mg chewable tablet 81 mg PO DAILY@0800 10/18/18 [History Last Taken Unknown] clopidogrel 75 mg tablet 75 mg PO DAILY 10/18/18 [History Last Taken Unknown] potassium chloride 10 mEq tablet,extended release 10 meq PO BID 10/18/18 [History Last Taken Unknown] sertraline 50 mg tablet 50 mg PO DAILY 10/18/18 [History Last Taken Unknown] torsemide 20 mg tablet 20 mg PO DAILY 10/18/18 [History Last Taken Unknown] clotrimazole 10 mg sophie 10 mg PO TID PRN PRN Mouth Irritation 05/12/22 [History Last Taken Unknown] memantine 10 mg tablet 10 mg PO DAILY 05/12/22 [History Last Taken Unknown] metformin 500 mg tablet 500 mg PO BID 05/12/22 [History Last Taken Unknown] metoprolol tartrate 25 mg tablet 12.5 mg PO DAILY 05/12/22 [History Last Taken Unknown] mirtazapine 15 mg tablet 15 mg PO QHS 05/12/22 [History Last Taken Unknown] oxybutynin chloride 5 mg tablet 5 mg PO BID 05/12/22 [History Last Taken Unknown] tizanidine 4 mg tablet 4 mg PO TID PRN PRN Muscle Spasm 05/12/22 [History Last Taken Unknown] Allergy/AdvReac Type Severity Reaction Status Date / Time ticagrelor [From Brilinta] Allergy Shortness Verified 05/12/22 12:19 of breath Family History Other no pertinent family medical hsitory Surgical History H/O colonoscopy H/O eye surgery H/O heart artery stent Social History Smoking Status: Never smoker ROS Constitutional Constitutional: Denies chills, fatigue, fever(s) or malaise Eyes Eyes: Denies blurry vision ENT HEENT: Denies headache(s) or nasal discharge Cardiovascular Cardiovascular: Denies chest pain, dyspnea on exertion or syncope Respiratory/Chest Respiratory/Chest: Denies cough, shortness of breath at rest or shortness of breath with exertion Gastrointestinal Gastrointestinal: Reports dysphagia; Denies constipation, diarrhea, nausea or vomiting Genitourinary Genitourinary: Denies dysuria Neurologic Neurologic: Denies focal weakness, numbness or tremor(s) Psychiatric Psychiatric: Denies anxiety or depression Physical Exam Narrative General: Alert, confused, Cooperative, No apparent distress HEENT: Atraumatic, PERRLA, EOMI, Normocephalic, hard of hearing hearing aid is in Oral: Moist Mucosa Neck: Supple, No JVD Lungs: Diminished, Normal air movement, No rhonchi, No wheeze, No rales Cardiovascular: Regular rate, Regular Rhythm, Normal S1, Normal S2, No murmurs Abdomen: Soft, Non Tender, Non-Distended, No Hepato-splenomegaly Extremities: No edema, Capillary Refill Less than 3 Seconds Skin: No rashes, No breakdown Musculoskeletal: No Tenderness to Palpation of Joints or Extremities Neurological: Cranial nerves II-XII grossly intact, Motor Exam 5/5 strength throughout, Sensory exam intact to light touch and pain Psych/Mental Status: Normal Affect, Appropriate Lab / Micro Data Result Diagrams: 05/12/22 10:15 05/12/22 10:15 Labs: Laboratory Results - last 24 hr 05/12/22 10:15: WBC 5.6, RBC 3.40 L, Hgb 9.4 L, Hct 30.6 L, MCV 90.0, MCH 27.6, MCHC 30.7 L, RDW Std Deviation 42.2, RDW Coeff of Galen 12.9, Plt Count 175, MPV 11.5, Immature Gran % (Auto) 0.200, Neut % (Auto) 70.4 H, Lymph % (Auto) 17.0 L,Bandera % (Auto) 8.8, Eos % (Auto) 2.9, Baso % (Auto) 0.7, Absolute Neuts (auto) 4.0, Absolute Lymphs (auto) 0.95, Nucleated RBC % 0 05/12/22 10:15: Sodium 139, Potassium 3.9, Chloride 107, Carbon Dioxide 29.0, Anion Gap 3 L, BUN 22 H, Creatinine 0.88, Estim Creat Clear Calc 40.09, Est GFR (MDRD) Af Amer 80, Est GFR (MDRD) Non-Af 66, BUN/Creatinine Ratio 25.1 H, Glucose 99, Calcium 9.0 05/12/22 17:06: POC Glucose 110 H Radiology Impression Chest X-Ray 05/12/22 10:00 IMPRESSION: No acute abnormality is seen. Large hiatal hernia. Electronically Signed: Demar Toscano MD at 10:11 EDT , Assessment & Plan Assessment/Plan (1) Dysphagia: PLAN: She will need to undergo evaluation of her upper GI tract to see if she ishaving problems with the large paraesophageal hernia that is seen on chest x- ray. She likely has an esophageal stricture from her paraesophageal hernia. She will also be evaluated for eosinophilic esophagitis and other esophageal motility disorders. She was explained alternatives, risk, benefits include not withstanding bleeding, infection, sepsis, perforation, need for emergency or . Show an ASA of 3. Charges/Coding Visit Charges Inpatient E&M: 05643 Init Hosp L2 05/12/22 1847 <Electronically signed by Roque Herrera DO> Cosigner Signature (if applicable): CC: Mita Morton DO~ Signed [facility] Work Phone: [phone] 752-747404-04-[address] Benitez [facility] May 12, 2022 4:36pm Note Date/Time May 12, 2022 10:0 0am [facility] Medical Records Department [address] [place] [address] Emergency Department Summary 05/12/22 MR#: [id number] Acct: [id number] Name: PREMA VILLALPANDO Rep #:[id number] : 1940 81 From: Zonia Benitez DO PCP: Mita Morton DO Status:ADM WARD Location: [place] [address] HPI History of Present Illness Chief Complaint: Foreign Body Detail of Chief Complaint: Difficulty swallowing Informant: patient and family Narrative Narrative: Patient brought to the emergency department by her daughter for complaint of difficulty swallowing. Patient apparently was having a hard time swallowing hermeal yesterday. She had a hard time swallowing her pills today. Patient has history of EGD with esophageal dilatation around of 2021. She per daughter had been doing relatively well until recently. She had had 1 prior dilatation years ago. Patient currently at assisted living facility. Patient has history of dementia and is somewhat of a poor historian. Apparently she is able to swallow liquids. Her last dilatation was in [place]. [facility] Medical History (Updated 05/12/22 @ 11:[address] Zonia Benitez, ) Anemia Atherosclerotic heart disease of [place] coronary artery without angina pectoris Dyslipidemia Gallstone of bile duct with gallbladder inflammation h/o throat surgery H/O transfusion of whole blood Hx of blood clots Hyperlipidemia Hypertension Iron deficiency anemia, unspecified Paroxysmal atrial fibrillation Persistent atrial fibrillation Home Medications Atorvastatin Calcium 80 mg PO DAILY 10/18/18 [History Last Taken Unknown] Omeprazole [Prilosec] 40 mg PO DAILY 10/18/18 [History Last Taken Unknown] aspirin 81 mg chewable tablet 81 mg PO DAILY@0800 10/18/18 [History Last Taken Unknown] clopidogrel 75 mg tablet 75 mg PO DAILY 10/18/18 [History Last Taken Unknown] dicyclomine 10 mg capsule 10 mg PO TIDAC 10/18/18 [History Last Taken Unknown] metoprolol tartrate 25 mg tablet 25 mg PO BID 10/18/18 [History Last Taken Unknown] multivitamin with minerals 1 tab PO DAILY 10/18/18 [History Last Taken Unknown] potassium chloride 10 mEq tablet,extended release 10 meq PO DAILY 10/18/18 [History Last Taken Unknown] psyllium husk (aspartame) 3.4 gram oral powder packet 1 packet PO DAILY PRN Heartburn Or Indigestion 10/18/18 [History Last Taken Unknown] sertraline 50 mg tablet 50 mg PO DAILY 10/18/18 [History Last Taken Unknown] torsemide 20 mg tablet 20 mg PO DAILY 10/18/18 [History Last Taken Unknown] ursodiol 300 mg capsule 300 mg PO BID 10/18/18 [History Last Taken Unknown] donepezil 10 mg tablet 10 mg PO DAILY 02/10/19 [History Last Taken Unknown] pantoprazole 40 mg tablet,delayed release 40 mg PO DAILY #30 tabs 02/10/19 [Rx Last Taken Unknown] nirmatrelvir 300 mg (150 mg x2)-ritonavir 100 mg tablet,dose pack(EUA) (Paxlovid) See Rx Instructions PO .COMPLEX #30 tabs 08/15/21 [Rx Last Taken Unknown] Allergy/AdvReac Type Severity Reaction Status Date / Time No Known Allergies Allergy Verified 08/15/21 15:43 Family History Other no pertinent family medical hsitory Surgical History H/O colonoscopy H/O eye surgery H/O heart artery stent Social History Smoking Status: Never smoker ROS ROS ED Review of Systems ROS Unobtainable: other Constitutional Constitutional ED: Reports lethargy; Denies chills, fever(s), sweats or weight loss Eyes Eyes: Denies blurry vision, change in vision or diplopia ENT ENT ED: Denies rhinorrhea or sore throat Cardiovascular Cardiovascular: Denies chest pain, orthopnea or racing heartbeat Respiratory/Chest Respiratory/Chest: Denies cough, dyspnea, dyspnea on exertion, orthopnea or sputum Gastrointestinal Gastrointestinal: Reports other Details: Difficulty swallowing ; Denies abdominal pain, diarrhea, nausea or vomiting Genitourinary Genitourinary ED: Denies dysuria, hematuria or urinary frequency Musculoskeletal Musculoskeletal: Denies arthralgias, back pain, myalgias or neck pain Integumentary Denies abscess, Abrasions or rash Neurologic Neurologic: Denies headache(s) or weakness Psychiatric Psychiatric: Denies anxiety, depression or suicidal thoughts Endocrine Endocrinology: Denies polydipsia, polyphagia or polyuria Hematologic/Lymphatic Hematologic/Lymphatic: Denies easy bleeding, easy bruising or lymphadenopathy Allergic/Immunologic Allergic/Immunologic ED: Denies mouth swelling, tongue swelling or urticaria EXAM Physical Exam Const Vital Signs: 05/12/22 09:32 05/12/22 10:17 Temperature 97.8 F Temperature Source Temporal Pulse Rate 78 Respiratory Rate 16 Respiratory Effort Normal Non-Labored Respiratory Pattern Normal Blood Pressure 126/76 H Blood Pressure Mean 92 Pulse Ox 98 Oxygen Delivery Method Room Air Positive well nourished and well developed General Appearance ED: well developed and NAD HEENT Reports TM's clear and moist mucous membranes normocephalic and atraumatic; Negative for trauma or tenderness Tympanic Membrane ED: Yes TM's clear Eyes PERRL and EOMs intact bilaterally General Eye ED: Negative for pale conjunctiva or scleral icterus Neck no lymphadenopathy, supple and no JVD General: Negative for tenderness Chest Wall inspection of chest normal and palpation of chest normal Chest: Negative for tenderness Resp normal respiratory effort and clear to auscultation bilaterally Effort and Inspection: Negative for respiratory distress or pain with movement Auscultation: Negative for rhonchi, wheezes or diminished lung sounds Cardio regular rate, regular rhythm, S1 normal heart sound, S2 normal heart sound and no murmurs Peripheral Pulses: pulses 2+ throughout GI normal to inspection, nondistended, normoactive bowel sounds, soft to palpation,non-tender, non-distended and no masses Back/Spine no CVA tenderness and no thoracic nor lumbar tenderness Extremity normal to inspection General Extremety ED: Negative for edema General Extremity: Negative for edema Neuro oriented x3, CN's II-XII intact bilaterally, no sensory deficits noted and gait normal Sensorium / Orientation: awake, alert, oriented to person, oriented to place andoriented to time Motor Exam: strength 5/5 throughout and strength abnormal Psych mental status grossly normal Skin no rashes or lesions noted and no wounds MDM MDM MDM Narrative Medical decision making narrative: Patient was given water which she was able to swallow without difficulty. I discussed case with scrap crane operator on-call Dr. Herrera. He felt admitting the patient would be reasonable and he can see her in consultation to evaluate for possible EGD or other intervention. We will discuss case with hospitalist for admission. Lab Data Attestation: I reviewed the patient's lab results. Labs: Laboratory Results - last 24 hr 05/12/22 05/12/22 10:15 10:15 WBC 5.6 RBC 3.40 L Hgb 9.4 L Hct 30.6 L MCV 90.0 MCH 27.6 MCHC 30.7 L RDW Std Deviation 42.2 RDW Coeff of Galen 12.9 Plt Count 175 MPV 11.5 Immature Gran % (Auto) 0.200 Neut % (Auto) 70.4 H Lymph % (Auto) 17.0 L Bandera % (Auto) 8.8 Eos % (Auto) 2.9 Baso % (Auto) 0.7 Absolute Neuts (auto) 4.0 Absolute Lymphs (auto) 0.95 Nucleated RBC % 0 Sodium 139 Potassium 3.9 Chloride 107 Carbon Dioxide 29.0 Anion Gap 3 L BUN 22 H Creatinine 0.88 Estim Creat Clear Calc 40.09 Est GFR (MDRD) Af Amer 80 Est GFR (MDRD) Non-Af 66 BUN/Creatinine Ratio 25.1 H Glucose 99 Calcium 9.0 Radiography Chest X-Ray - ED: 1 View Diagnostic Testing: Clinical Impression(s) from Imaging Studies Chest X-Ray 05/12/22 10:00 IMPRESSION: No acute abnormality is seen. Large hiatal hernia. Electronically Signed: Demar Toscano MD at 10:11 EDT , 1 view chest x-ray obtained interpreted by myself as no evidence of infiltrate or pneumothorax or other acute disease process. Incidentally noted was a hiatalhernia. Radiology was in agreement. Discharge Plan Triage Chief Complaint: Foreign Body ED Provider: Zonia Benitez Dx/Rx/DC Orders Clinical Impression: Dysphagia, History of esophageal stricture, History of hypertension Prescriptions: No Action Paxlovid (EUA) 300 mg (150 mg x 2)-100 mg tablet See Rx Instructions PO .COMPLEX Qty: 30 0RF Rx Instructions: take TWO 150 mg tablets of nirmatrelvir with ONE 100 mg tablet of ritonavir twice daily for 5 days PO Atorvastatin Calcium 80 MG tablet 80 mg PO DAILY torsemide 20 MG tablet 20 mg PO DAILY potassium chloride 10 MEQ tablet extended release 10 meq PO DAILY clopidogrel 75 MG tablet 75 mg PO DAILY ursodiol 300 MG capsule 300 mg PO BID aspirin 81 MG tablet,chewable 81 mg PO DAILY@0800 multivitamin with minerals 1 EACH tablet 1 tab PO DAILY sertraline 50 MG tablet 50 mg PO DAILY dicyclomine 10 MG capsule 10 mg PO TIDAC metoprolol tartrate 25 MG tablet 25 mg PO BID psyllium husk (aspartame) 1 PACKET packet 1 packet PO DAILY PRN (Reason: Heartburn Or Indigestion) Omeprazole [Prilosec] 40 MG capsule 40 mg PO DAILY donepezil 10 MG tablet 10 mg PO DAILY pantoprazole 40 MG tablet 40 mg PO DAILY Qty: 30 0RF Primary Care Provider: Mita Morton Referrals: Mita Morton, [Primary Care Provider] - Disposition Disposition: Acute Care Hospital [facility] What to do if you have Problems For any increased pain, shortness of breath, bleeding, nausea or vomiting, chestpain, or any unexpected problems, contact your Primary Care Provider. Call [facility] ([phone]) or report to the closest Emergency Room. Call 911 if necessary. 05/12/22 1636 <Electronically signed by Zonia Benitez DO> Cosigner Signature (if applicable): CC: Mita Morton DO ~ Signed [facility] Work Phone: 1(548) 723-317404-04-2023 History and physical note Author Dr. Pack [facility] May 12, 2022 4:06pm Note Date/Time May 12, 2022 11:2 1am [facility] Medical Records Department [address] [place] [address] H&P Exam - Hospitalist 05/12/22 1115 MR#: [id number] Acct: [id number] Name: PREMA VILLALPANDO Rep #:[id number] : 1940 81 From: Jovi galvez MD PCP: Mita Morton DO Status:ADM WARD Location[place] [facility] [place] [facility]-0 HPI - General General Date of Admission: 05/12/22 HPI Narrative PREMA VILLALPANDO, is a 81 F who presents to the hospital with difficulty swallowing. This has been an ongoing issue she had a previous esophageal dilatation years ago and then had another 1 at a hospital in [place] in January 2022. She has been having increasing difficulty swallowing and this morning haddifficulty swallowing her pills. She was able to eat and drink in the ER and she has not been losing any weight. No nausea or vomiting. She was brought to the emergency room because of a concern for not being able to swallow her pills it does not appear that any outpatient management has been sought so far. Imaging demonstrates a large hiatal hernia. Unfortunately secondary to her dementia she is a poor historian and there is no family at bedside so information was obtained from chart review and discussing the case with the ED physician. [facility], [facility] Medical History (Updated 05/12/22 @ 12:41 by Lyn Minor) Anemia Atherosclerotic heart disease of [place] coronary artery without angina pectoris Dementia Diabetes Dyslipidemia Gallstone of bile duct with gallbladder inflammation h/o throat surgery H/O transfusion of whole blood Hx of blood clots Hyperlipidemia Hypertension Iron deficiency anemia, unspecified Paroxysmal atrial fibrillation Persistent atrial fibrillation Wears hearing aid in both ears Home Medications Atorvastatin Calcium 80 mg PO DAILY 10/18/18 [History Last Taken Unknown] Omeprazole [Prilosec] 40 mg PO DAILY 10/18/18 [History Last Taken Unknown] aspirin 81 mg chewable tablet 81 mg PO DAILY@0800 10/18/18 [History Last Taken Unknown] clopidogrel 75 mg tablet 75 mg PO DAILY 10/18/18 [History Last Taken Unknown] potassium chloride 10 mEq tablet,extended release 10 meq PO BID 10/18/18 [History Last Taken Unknown] sertraline 50 mg tablet 50 mg PO DAILY 10/18/18 [History Last Taken Unknown] torsemide 20 mg tablet 20 mg PO DAILY 10/18/18 [History Last Taken Unknown] clotrimazole 10 mg sophie 10 mg PO TID PRN PRN Mouth Irritation 05/12/22 [History Last Taken Unknown] memantine 10 mg tablet 10 mg PO DAILY 05/12/22 [History Last Taken Unknown] metformin 500 mg tablet 500 mg PO BID 05/12/22 [History Last Taken Unknown] metoprolol tartrate 25 mg tablet 12.5 mg PO DAILY 05/12/22 [History Last Taken Unknown] mirtazapine 15 mg tablet 15 mg PO QHS 05/12/22 [History Last Taken Unknown] oxybutynin chloride 5 mg tablet 5 mg PO BID 05/12/22 [History Last Taken Unknown] tizanidine 4 mg tablet 4 mg PO TID PRN PRN Muscle Spasm 05/12/22 [History Last Taken Unknown] Allergy/AdvReac Type Severity Reaction Status Date / Time ticagrelor [From Brilinta] Allergy Shortness Verified 05/12/22 12:19 of breath Family History Other no pertinent family medical hsitory Surgical History H/O colonoscopy H/O eye surgery H/O heart artery stent Social History Smoking Status: Never smoker ROS Constitutional Constitutional: Denies chills, fatigue, fever(s) or malaise Eyes Eyes: Denies blurry vision ENT HEENT: Denies headache(s) or nasal discharge Cardiovascular Cardiovascular: Denies chest pain, dyspnea on exertion or syncope Respiratory/Chest Respiratory/Chest: Denies cough, shortness of breath at rest or shortness of breath with exertion Gastrointestinal Gastrointestinal: Reports dysphagia; Denies constipation, diarrhea, nausea or vomiting Genitourinary Genitourinary: Denies dysuria Neurologic Neurologic: Denies focal weakness, numbness or tremor(s) Psychiatric Psychiatric: Denies anxiety or depression Vital Signs Vital Signs Vital Signs: 05/12/22 09:32 05/12/22 10:17 Temperature 97.8 F Temperature Source Temporal Pulse Rate 78 Respiratory Rate 16 Respiratory Effort Normal Non-Labored Respiratory Pattern Normal Blood Pressure 126/76 H Blood Pressure Mean 92 Pulse Ox 98 Oxygen Delivery Method Room Air Weight Weight: 108 lb Body Mass Index (BMI) 22.6 Physical Exam Narrative General: Alert, confused, Cooperative, No apparent distress HEENT: Atraumatic, PERRLA, EOMI, Normocephalic, hard of hearing hearing aid is in Oral: Moist Mucosa Neck: Supple, No JVD Lungs: Diminished, Normal air movement, No rhonchi, No wheeze, No rales Cardiovascular: Regular rate, Regular Rhythm, Normal S1, Normal S2, No murmurs Abdomen: Soft, Non Tender, Non-Distended, No Hepato-splenomegaly Extremities: No edema, Capillary Refill Less than 3 Seconds Skin: No rashes, No breakdown Musculoskeletal: No Tenderness to Palpation of Joints or Extremities Neurological: Cranial nerves II-XII grossly intact, Motor Exam 5/5 strength throughout, Sensory exam intact to light touch and pain Psych/Mental Status: Normal Affect, Appropriate Results Lab / Micro Data Result Diagrams: 05/12/22 10:15 05/12/22 10:15 Labs: Laboratory Results - last 24 hr 05/12/22 10:15: WBC 5.6, RBC 3.40 L, Hgb 9.4 L, Hct 30.6 L, MCV 90.0, MCH 27.6, MCHC 30.7 L, RDW Std Deviation 42.2, RDW Coeff of Galen 12.9, Plt Count 175, MPV 11.5, Immature Gran % (Auto) 0.200, Neut % (Auto) 70.4 H, Lymph % (Auto) 17.0 L,Bandera % (Auto) 8.8, Eos % (Auto) 2.9, Baso % (Auto) 0.7, Absolute Neuts (auto) 4.0, Absolute Lymphs (auto) 0.95, Nucleated RBC % 0 05/12/22 10:15: Sodium 139, Potassium 3.9, Chloride 107, Carbon Dioxide 29.0, Anion Gap 3 L, BUN 22 H, Creatinine 0.88, Estim Creat Clear Calc 40.09, Est GFR (MDRD) Af Amer 80, Est GFR (MDRD) Non-Af 66, BUN/Creatinine Ratio 25.1 H, Glucose 99, Calcium 9.0 Radiology Impression Chest X-Ray 05/12/22 10:00 IMPRESSION: No acute abnormality is seen. Large hiatal hernia. Electronically Signed: Demar Toscano MD at 10:11 EDT , Assessment & Plan Assessment/Plan (1) Dysphagia: PLAN: Plan 1. Dysphagia ? She has had 2 previous dilatations ? Imaging demonstrates a large hiatal hernia ? She is able to eat and drink and has not lost any weight ? We will consult GI for EGD, likely need to be n.p.o. after midnight 2. CAD status post/HTN/HLD/A-fib ? She is not on any anticoagulation ? Continue with her home blood pressure and cholesterol medications ? Continue with her Plavix 3. DM2 ? Hold her metformin ? We will place her on a sliding scale insulin with Accu-Cheks ACHS ? We will make adjustments as necessary 4. GERD ? Stable ? Continue with PPI 5. Anxiety/depression/dementia ? Stable ? Continue with her home medications DVT: SCDs 75 minutes was spent [id number], as well as chart review and documentation anddiscussing the case with colleagues Charges/Coding Visit Charges Inpatient E&M: 64785 Init Hosp L3 05/12/22 1606 <Electronically signed by Jovi Pack MD> Cosigner Signature (if applicable): CC: Dr. Jovi Pack MD; Mita Morton DO~ Signed [facility] Work Phone: [phone]) 866-753601-26-2023 Telephone encounter Note* Telephone Encounter - KALYN Fulton CNP - 03/05/2022 11:40 AM EST Spoke to daughter Hossein and relayed the message. She will meat pickler the medication today. [place] [id number] Miscellaneous Notes* Telephone Encounter - KALYN Fulton CNP - 03/05/2022 11:40 AM EST Spoke to daughter Hossein and relayed the message. She will meat pickler the medication today. * Telephone Encounter - KALYN Fulton CNP - 03/05/2022 11:32 AM EST SADI I called Donald (pharmacist) at [facility] [address] [place] [address]#[phone]. The medication (budesonide slurry) is ready for patient to meat pickler. It will be $40 per month. She will take this for 3 months and then follow up with a repeat EGD. They patient/daughter just needs to pick the medication up at their earliest convenience. I have also called the daughter Yaz and left a detailed VM regarding this. Please patch through to me in the office if the patient's daughter Yaz calls back and has any questions. * Telephone Encounter - Pau Bar - 03/04/2022 3:17 PM EST Called patient and spoke with her daughter, she states she did not get her mothers medication from her pharmacy because it cost over $400 and they cannot afford it, please look into an alternative for patient so she can start treatment. I called pharmacy to see if they had patients secondary insurance on file but they stated they cannot use that ins. Luz to it not covering medications. Please advise and Thank you * Telephone Encounter - KALYN Fulton CNP - 03/04/2022 12:56 PM EST Please let me know once you talk to the patient's daughter so she is confident on how the patient it to take medication. Thank you! * Telephone Encounter - Lupis Connors RN - 03/04/2022 11:55 AM EST Called in rx as written and verified with verbal order by provider into [facility] [address] #[phone]. Pharmacist stated compoundingpharmacist was not in today, and will return tomorrow. Pharmacist verified rx, pt information, andstated would return call tomorrow if any issues arise with filling script. Rx admin counseling alsorequested by pharmacist when pt picks up rx. Unable to schedule repeat EGD at this time due to schedule unavailable. * Telephone Encounter - KALYN Fulton CNP - 03/04/2022 7:35 AM EST Please call [facility] (surescripts ID: [facility]- NOT [facility]) [phone] to request budesonide slurry d/t high cost of flovent. Rx: Budesonide viscous slurry- 2 vials of 0.5mg in 1 packet of splenda twice daily (so 1mg bid). Request counseling for patient upon pickup of Rx. Please call in enough for 12 weeks. Schedule repeat EGD after completion. Then, please call the patient's daughter and let her know where you called it into and the fish please. Relay the message that the patient should take the budesonide slowly, over 5 to 10 minutes, and not eat or drink for 30 minutes after taking the budesonide suspension. Will need repeat EGD after. * Telephone Encounter - Lupis Connors RN - 03/03/2022 12:55 PM EST Spoke with pt's daughter, Hossein in regards to rx instructions. Hossein stated that Flovent is almost$400 and did not meat pickler. Is there an alternative rx that can be prescribed for this pt? * Telephone Encounter - Keisha Weiss - 03/02/2022 1:05 PM EST Called pt and left a VM requesting a callback to go over providers recommendations. Callback numberprovided. * Telephone Encounter - KALYN Fulton CNP - 03/02/2022 10:20 AM EST Did anyone speak with her about the recommendations? * Telephone Encounter - Keisha Weiss - 03/02/2022 8:22 AM EST Called pt and spoke to her daughter and got her scheduled for a SAILOR appointment on 03/13/22 at 2:40pm with Huma Meyers. * Telephone Encounter - Lupis Connors RN - 02/27/2022 1:49 PM EST Attempted contact with pt in regards to providers' recommendations. No answer. VM left. * Telephone Encounter - KALYN Fulton CNP - 02/27/2022 8:[address] Powell is recommending the patient to start Flovent inhaler for 8 weeks to improve symptoms and treat EOE. Please let the patient know that I have called this in for her. Do not use a spacer- The medication is sprayed into the patient s mouth and then swallowed. Patients should not inhale when the medication is being delivered and they should not eat or drink for 30 minutes following administration. Flovent 220 mcg/spray, four sprays daily in divided doses. We instruct patients to divide the totaldaily dose as twice daily. For 8 weeks. Please also schedule her as a 40 min new patient on my schedule to discuss. documented in this encounterSAvita Health System Bucyrus [id number] Telephone encounter Note* Telephone Encounter - KALYN Fulton CNP - 03/05/2022 11:32 AM EST SADI I called Donald (pharmacist) at [facility] [address] [place] [address]#[phone]. The medication (budesonide slurry) is ready for patient to meat pickler. It will be $40 per month. She will take this for 3 months and then follow up with a repeat EGD. They patient/daughter just needs to pick the medication up at their earliest convenience. I have also called the daughter Yaz and left a detailed VM regarding this. Please patch through to me in the office if the patient's daughter Yaz calls back and has any questions. [facility] [id number] Telephone encounter Note* Telephone Encounter - Pau Bar - 03/04/2022 3:17 PM EST Called patient and spoke with her daughter, she states she did not get her mothers medication from her pharmacy because it cost over $400 and they cannot afford it, please look into an alternative for patient so she can start treatment. I called pharmacy to see if they had patients secondary insurance on file but they stated they cannot use that ins. Luz to it not covering medications. Please advise and Thank you [facility] [id number] Miscellaneous Notes* Telephone Encounter - Pau Bar - 03/04/2022 3:17 PM EST Called patient and spoke with her daughter, she states she did not get her mothers medication from her pharmacy because it cost over $400 and they cannot afford it, please look into an alternative for patient so she can start treatment. I called pharmacy to see if they had patients secondary insurance on file but they stated they cannot use that ins. Luz to it not covering medications. Please advise and Thank you * Telephone Encounter - KALYN Fulton CNP - 03/04/2022 12:56 PM EST Please let me know once you talk to the patient's daughter so she is confident on how the patient it to take medication. Thank you! * Telephone Encounter - Lupis Connors RN - 03/04/2022 11:55 AM EST Called in rx as written and verified with verbal order by provider into [facility] [address] PH#[phone]. Pharmacist stated compoundingpharmacist was not in today, and will return tomorrow. Pharmacist verified rx, pt information, andstated would return call tomorrow if any issues arise with filling script. Rx admin counseling alsorequested by pharmacist when pt picks up rx. Unable to schedule repeat EGD at this time due to schedule unavailable. * Telephone Encounter - KALYN Fulton CNP - 03/04/2022 7:35 AM EST Please call [facility] (surescripts ID: [facility]- NOT [facility]) [phone] to request budesonide slurry d/t high cost of flovent. Rx: Budesonide viscous slurry- 2 vials of 0.5mg in 1 packet of splenda twice daily (so 1mg bid). Request counseling for patient upon pickup of Rx. Please call in enough for 12 weeks. Schedule repeat EGD after completion. Then, please call the patient's daughter and let her know where you called it into and the fish please. Relay the message that the patient should take the budesonide slowly, over 5 to 10 minutes, and not eat or drink for 30 minutes after taking the budesonide suspension. Will need repeat EGD after. * Telephone Encounter - Lupis Connors RN - 03/03/2022 12:55 PM EST Spoke with pt's daughter, Hossein in regards to rx instructions. Hossein stated that Flovent is almost$400 and did not meat pickler. Is there an alternative rx that can be prescribed for this pt? * Telephone Encounter - Keisha Weiss - 03/02/2022 1:05 PM EST Called pt and left a VM requesting a callback to go over providers recommendations. Callback numberprovided. * Telephone Encounter - KALYN Fulton CNP - 03/02/2022 10:20 AM EST Did anyone speak with her about the recommendations? * Telephone Encounter - Keisha Weiss - 03/02/2022 8:22 AM EST Called pt and spoke to her daughter and got her scheduled for a SAILOR appointment on 03/13/22 at 2:40pm with Huma Meyers. * Telephone Encounter - Lupis Connors RN - 02/27/2022 1:49 PM EST Attempted contact with pt in regards to providers' recommendations. No answer. VM left. * Telephone Encounter - KALYN Fulton CNP - 02/27/2022 8:[address] Powell is recommending the patient to start Flovent inhaler for 8 weeks to improve symptoms and treat EOE. Please let the patient know that I have called this in for her. Do not use a spacer- The medication is sprayed into the patient s mouth and then swallowed. Patients should not inhale when the medication is being delivered and they should not eat or drink for 30 minutes following administration. Flovent 220 mcg/spray, four sprays daily in divided doses. We instruct patients to divide the totaldaily dose as twice daily. For 8 weeks. Please also schedule her as a 40 min new patient on my schedule to discuss. documented in this encounterSAvita Health System Bu[facility] [id number] Telephone encounter Note* Telephone Encounter - KALYN Fulton CNP - 03/04/2022 12:56 PM EST Please let me know once you talk to the patient's daughter so she is confident on how the patient it to take medication. Thank you! [facility], [id number] Telephone encounter Note* Telephone Encounter - Lupis Connors RN - 03/04/2022 11:55 AM EST Called in rx as written and verified with verbal order by provider into [facility] [address] PH#[phone]. Pharmacist stated compoundingpharmacist was not in today, and will return tomorrow. Pharmacist verified rx, pt information, andstated would return call tomorrow if any issues arise with filling script. Rx admin counseling alsorequested by pharmacist when pt picks up rx. Unable to schedule repeat EGD at this time due to schedule unavailable. [facility] [id number] Telephone encounter Note* Telephone Encounter - KALYN Fulton CNP - 03/04/2022 7:35 AM EST Please call [facility] (surescripts ID: [facility]- [facility]) [phone] to request budesonide slurry d/t high cost of flovent. Rx: Budesonide viscous slurry- 2 vials of 0.5mg in 1 packet of splenda twice daily (so 1mg bid). Request counseling for patient upon pickup of Rx. Please call in enough for 12 weeks. Schedule repeat EGD after completion. Then, please call the patient's daughter and let her know where you called it into and the fish please. Relay the message that the patient should take the budesonide slowly, over 5 to 10 minutes, and not eat or drink for 30 minutes after taking the budesonide suspension. Will need repeat EGD after. [facility] [id number] Telephone encounter Note* Telephone Encounter - Lupis Connors RN - 03/03/2022 12:55 PM EST Spoke with pt's daughter, Hossein in regards to rx instructions. Hossein stated that Flovent is almost$400 and did not meat pickler. Is there an alternative rx that can be prescribed for this pt? [facility] [id number] Miscellaneous Notes* Telephone Encounter - Lupis Connors RN - 03/03/2022 12:55 PM EST Spoke with pt's daughter, Hossein in regards to rx instructions. Hossein stated that Flovent is almost$400 and did not meat pickler. Is there an alternative rx that can be prescribed for this pt? * Telephone Encounter - Keisha Weiss - 03/02/2022 1:05 PM EST Called pt and left a VM requesting a callback to go over providers recommendations. Callback numberprovided. * Telephone Encounter - KALYN Fulton CNP - 03/02/2022 10:20 AM EST Did anyone speak with her about the recommendations? * Telephone Encounter - Keisha Weiss - 03/02/2022 8:22 AM EST Called pt and spoke to her daughter and got her scheduled for a SAILOR appointment on 03/13/22 at 2:40pm with Huma Meyers. * Telephone Encounter - Lupis Connors RN - 02/27/2022 1:49 PM EST Attempted contact with pt in regards to providers' recommendations. No answer. VM left. * Telephone Encounter - KALYN Fulton CNP - 02/27/2022 8:[address] Powell is recommending the patient to start Flovent inhaler for 8 weeks to improve symptoms and treat EOE. Please let the patient know that I have called this in for her. Do not use a spacer- The medication is sprayed into the patient s mouth and then swallowed. Patients should not inhale when the medication is being delivered and they should not eat or drink for 30 minutes following administration. Flovent 220 mcg/spray, four sprays daily in divided doses. We instruct patients to divide the totaldaily dose as twice daily. For 8 weeks. Please also schedule her as a 40 min new patient on my schedule to discuss. documented in this encounterSAvita Health System Bucy[facility] [id number] Telephone encounter Note* Telephone Encounter - Keisha Weiss - 03/02/2022 1:05 PM EST Called pt and left a VM requesting a callback to go over providers recommendations. Callback numberprovided. [facility], [id number] Miscellaneous Notes* Telephone Encounter - Keisha Weiss - 03/02/2022 1:05 PM EST Called pt and left a VM requesting a callback to go over providers recommendations. Callback numberprovided. * Telephone Encounter - KALYN Fulton CNP - 03/02/2022 10:20 AM EST Did anyone speak with her about the recommendations? * Telephone Encounter - Keisha Weiss - 03/02/2022 8:22 AM EST Called pt and spoke to her daughter and got her scheduled for a SAILOR appointment on 03/13/22 at 2:40pm with Huma Meyers. * Telephone Encounter - Lupis Connors RN - 02/27/2022 1:49 PM EST Attempted contact with pt in regards to providers' recommendations. No answer. VM left. * Telephone Encounter - KALYN Fulton CNP - 02/27/2022 8:[address] Powell is recommending the patient to start Flovent inhaler for 8 weeks to improve symptoms and treat EOE. Please let the patient know that I have called this in for her. Do not use a spacer- The medication is sprayed into the patient s mouth and then swallowed. Patients should not inhale when the medication is being delivered and they should not eat or drink for 30 minutes following administration. Flovent 220 mcg/spray, four sprays daily in divided doses. We instruct patients to divide the totaldaily dose as twice daily. For 8 weeks. Please also schedule her as a 40 min new patient on my schedule to discuss. documented in this encounterSAvita Health System Bucyrus [id number] Telephone encounter Note* Telephone Encounter - KALYN Fulton CNP - 03/02/2022 10:20 AM EST Did anyone speak with her about the recommendations? [facility], [id number] Telephone encounter Note* Telephone Encounter - Keisha Weiss - 03/02/2022 8:22 AM EST Called pt and spoke to her daughter and got her scheduled for a SAILOR appointment on 03/13/22 at 2:40pm with Huma Meyers. [facility], [id number] Telephone encounter Note* Telephone Encounter - Lupis Connors RN - 02/27/2022 1:49 PM EST Attempted contact with pt in regards to providers' recommendations. No answer. VM left. [facility], [id number] Telephone encounter Note* Telephone Encounter - KALYN Fulton CNP - 02/27/2022 8:[address] Powell is recommending the patient to start Flovent inhaler for 8 weeks to improve symptoms and treat EOE. Please let the patient know that I have called this in for her. Do not use a spacer- The medication is sprayed into the patient s mouth and then swallowed. Patients should not inhale when the medication is being delivered and they should not eat or drink for 30 minutes following administration. Flovent 220 mcg/spray, four sprays daily in divided doses. We instruct patients to divide the totaldaily dose as twice daily. For 8 weeks. Please also schedule her as a 40 min new patient on my schedule to discuss. [facility], [id number] Note* Op Note - Lalitha Powell MD - 02/23/2022 7:43 AM EST [facility] Name[facility] Prema Vill[facility] Procedure Date: 02/23/2022 7:43 AM Gender: Female Date of : 1940 Age: 81 Admit Type: Outpatient Note Status: Finalized Endoscopist: LALITHA Powell MD Procedure: Upper GI endoscopy Indications: Dysphagia Findings: One benign-appearing, intrinsic moderate stenosis was found. This stenosis measured 9 mm (inner diameter) x less than one cm (in length). The stenosis was traversed. A TTS dilator was passed through the scope. Dilation with a 10-11-12 mm balloon dilator was performed to 12 mm. Biopsies were taken with a cold forceps for histology from this area. Biopsies were taken with a cold forceps for histology from proximal and distal esophagus to rule out lymphocytic esophagitis as the entire lumen appeared scarred. A medium-sized hiatal hernia was present. A small amount of food (residue) was found in the gastric body. The first portion of the duodenum and second portion of the duodenum were normal. Impression: - Benign-appearing esophageal stenosis. Dilated. Biopsied. - Medium-sized hiatal hernia. - A small amount of food (residue) in the stomach. - Normal first portion of the duodenum and second portion of the duodenum. Recommendation: - Patient has a contact number available for emergencies. The signs and symptoms of potential delayed complications were discussed with the patient. Return to normal activities tomorrow. Written discharge instructions were provided to the patient. - Await pathology results. - Continue present medications. - Resume previous diet. - Return to referring physician as previously scheduled. - PPI 20 mg PO BID - If symptoms persist, further dilation can be performed. - Recommend speech and swallow evlaution given large food residue in oropharynx. - ENT evaluation. - Plavix re-start in 72 hours. Referring MD: Aurea Charles Medicines: Monitored Anesthesia Care Procedure: Pre-Anesthesia Assessment: - Prior to the procedure, a History and Physical was performed, and patient medications and allergies were reviewed. The patient is competent. The risks and benefits of the procedure and the sedation options and risks were discussed with the patient. All questions were answered and informed consent was obtained. Patient identification and proposed procedure were verified by the physician, the nurse and the poultry inspector in the pre-procedure area in the procedure room. Mental Status Examination: alert and oriented. Airway Examination: normal oropharyngeal airway and neck mobility. Respiratory Examination: clear to auscultation. CV Examination: normal. Prophylactic Antibiotics: The patient does not require prophylactic antibiotics. Prior Anticoagulants: The patient has taken no anticoagulant or antiplatelet agents. ASA Grade Assessment: III - A patient with severe systemic disease. After reviewing the risks and benefits, the patient was deemed in satisfactory condition to undergo the procedure. The anesthesia plan was to use monitored anesthesia care (MAC). Immediately prior to administration of medications, the patient was re-assessed for adequacy to receive sedatives. The heart rate, respiratory rate, oxygen saturations, blood pressure, adequacy of pulmonary ventilation, and response to care were monitored throughout the procedure. The physical status of the patient was re-assessed after the procedure. - Prior Aspirin/ NSAID therapy: The patient has taken aspirin, last dose was 1 day prior to procedure. After obtaining informed consent, the endoscope was passed under direct vision. Throughout the procedure, the patient's blood pressure, pulse, and oxygen saturations were monitored continuously. The Endoscope was introduced through the mouth, and advanced to the second part of duodenum. The upper GI endoscopy was accomplished with ease. The patient tolerated the procedure well. Complications: No immediate complications. Estimated blood loss: None. Procedure Code(s): --- Professional --- 85780, Esophagogastroduodenoscopy, flexible, transoral; with transendoscopic balloon dilation of esophagus (less than 30 mm diameter) 35241, 59, Esophagogastroduodenoscopy, flexible, transoral; with biopsy, single or multiple --- Technical --- 50026, Esophagogastroduodenoscopy, flexible, transoral; with transendoscopic balloon dilation of esophagus (less than 30 mm diameter) 75936, 59, Esophagogastroduodenoscopy, flexible, transoral; with biopsy, single or multiple Diagnosis Code(s): --- Professional --- K22.2, Esophageal obstruction K44.9, Diaphragmatic hernia without obstruction or gangrene R13.10, Dysphagia, unspecified --- Technical --- K22.2, Esophageal obstruction K44.9, Diaphragmatic hernia without obstruction or gangrene R13.10, Dysphagia, unspecified CPT copyright 2020 [employer]. All rights reserved. The codes documented in this report are preliminary and upon coal digger review may be revised to meet current compliance requirements. Attending Participation: I personally performed the entire procedure. LALITHA Powell MD 02/23/2022 8:09:15 AM This report has been signed electronically. Number of Addenda: 0 Note Initiated On: 02/23/2022 7:43 AM [facility], [id number] Note* Op Note - Lalitha Powell MD - 02/23/2022 7:43 AM EST [facility] Name: Prema Villalpando Procedure Date: 02/23/2022 7:43 AM Gender: Female Date of : 1940 Age: 81 Admit Type: Outpatient Note Status: Finalized Endoscopist: LALITHA Powell MD Procedure: Upper GI endoscopy Indications: Dysphagia Findings: One benign-appearing, intrinsic moderate stenosis was found. This stenosis measured 9 mm (inner diameter) x less than one cm (in length). The stenosis was traversed. A TTS dilator was passed through the scope. Dilation with a 10-11-12 mm balloon dilator was performed to 12 mm. Biopsies were taken with a cold forceps for histology from this area. Biopsies were taken with a cold forceps for histology from proximal and distal esophagus to rule out lymphocytic esophagitis as the entire lumen appeared scarred. A medium-sized hiatal hernia was present. A small amount of food (residue) was found in the gastric body. The first portion of the duodenum and second portion of the duodenum were normal. Impression: - Benign-appearing esophageal stenosis. Dilated. Biopsied. - Medium-sized hiatal hernia. - A small amount of food (residue) in the stomach. - Normal first portion of the duodenum and second portion of the duodenum. Recommendation: - Patient has a contact number available for emergencies. The signs and symptoms of potential delayed complications were discussed with the patient. Return to normal activities tomorrow. Written discharge instructions were provided to the patient. - Await pathology results. - Continue present medications. - Resume previous diet. - Return to referring physician as previously scheduled. - PPI 20 mg PO BID - If symptoms persist, further dilation can be performed. - Recommend speech and swallow evlaution given large food residue in oropharynx. - ENT evaluation. - Plavix re-start in 72 hours. Referring MD: Aurea Charles Medicines: Monitored Anesthesia Care Procedure: Pre-Anesthesia Assessment: - Prior to the procedure, a History and Physical was performed, and patient medications and allergies were reviewed. The patient is competent. The risks and benefits of the procedure and the sedation options and risks were discussed with the patient. All questions were answered and informed consent was obtained. Patient identification and proposed procedure were verified by the physician, the nurse and the poultry inspector in the pre-procedure area in the procedure room. Mental Status Examination: alert and oriented. Airway Examination: normal oropharyngeal airway and neck mobility. Respiratory Examination: clear to auscultation. CV Examination: normal. Prophylactic Antibiotics: The patient does not require prophylactic antibiotics. Prior Anticoagulants: The patient has taken no anticoagulant or antiplatelet agents. ASA Grade Assessment: III - A patient with severe systemic disease. After reviewing the risks and benefits, the patient was deemed in satisfactory condition to undergo the procedure. The anesthesia plan was to use monitored anesthesia care (MAC). Immediately prior to administration of medications, the patient was re-assessed for adequacy to receive sedatives. The heart rate, respiratory rate, oxygen saturations, blood pressure, adequacy of pulmonary ventilation, and response to care were monitored throughout the procedure. The physical status of the patient was re-assessed after the procedure. - Prior Aspirin/ NSAID therapy: The patient has taken aspirin, last dose was 1 day prior to procedure. After obtaining informed consent, the endoscope was passed under direct vision. Throughout the procedure, the patient's blood pressure, pulse, and oxygen saturations were monitored continuously. The Endoscope was introduced through the mouth, and advanced to the second part of duodenum. The upper GI endoscopy was accomplished with ease. The patient tolerated the procedure well. Complications: No immediate complications. Estimated blood loss: None. Procedure Code(s): --- Professional --- 43968, Esophagogastroduodenoscopy, flexible, transoral; with transendoscopic balloon dilation of esophagus (less than 30 mm diameter) 38208, 59, Esophagogastroduodenoscopy, flexible, transoral; with biopsy, single or multiple --- Technical --- 51349, Esophagogastroduodenoscopy, flexible, transoral; with transendoscopic balloon dilation of esophagus (less than 30 mm diameter) 21764, 59, Esophagogastroduodenoscopy, flexible, transoral; with biopsy, single or multiple Diagnosis Code(s): --- Professional --- K22.2, Esophageal obstruction K44.9, Diaphragmatic hernia without obstruction or gangrene R13.10, Dysphagia, unspecified --- Technical --- K22.2, Esophageal obstruction K44.9, Diaphragmatic hernia without obstruction or gangrene R13.10, Dysphagia, unspecified CPT copyright 202 [employer]. All rights reserved. The codes documented in this report are preliminary and upon coal digger review may be revised to meet current compliance requirements. Attending Participation: I personally performed the entire procedure. LALITHA Powell MD 02/23/2022 8:09:15 AM This report has been signed electronically. Number of Addenda: 0 Note Initiated On: 02/23/2022 7:43 AM [facility] [id number] Miscellaneous Notes* Op Note - Lalitha Powell MD - 02/23/2022 7:43 AM EST [facility] Patient Name: Prema Villalpando Procedure Date: 02/23/2022 7:43 AM Gender: Female Date of : 1940 Age: 81 Admit Type: Outpatient Note Status: Finalized Endoscopist: LALITHA Powell MD Procedure: Upper GI endoscopy Indications: Dysphagia Findings: One benign-appearing, intrinsic moderate stenosis was found. This stenosis measured 9 mm (inner diameter) x less than one cm (in length). The stenosis was traversed. A TTS dilator was passed through the scope. Dilation with a 10-11-12 mm balloon dilator was performed to 12 mm. Biopsies were taken with a cold forceps for histology from this area. Biopsies were taken with a cold forceps for histology from proximal and distal esophagus to rule out lymphocytic esophagitis as the entire lumen appeared scarred. A medium-sized hiatal hernia was present. A small amount of food (residue) was found in the gastric body. The first portion of the duodenum and second portion of the duodenum were normal. Impression: - Benign-appearing esophageal stenosis. Dilated. Biopsied. - Medium-sized hiatal hernia. - A small amount of food (residue) in the stomach. - Normal first portion of the duodenum and second portion of the duodenum. Recommendation: - Patient has a contact number available for emergencies. The signs and symptoms of potential delayed complications were discussed with the patient. Return to normal activities tomorrow. Written discharge instructions were provided to the patient. - Await pathology results. - Continue present medications. - Resume previous diet. - Return to referring physician as previously scheduled. - PPI 20 mg PO BID - If symptoms persist, further dilation can be performed. - Recommend speech and swallow evlaution given large food residue in oropharynx. - ENT evaluation. - Plavix re-start in 72 hours. Referring MD: Aurea Charles Medicines: Monitored Anesthesia Care Procedure: Pre-Anesthesia Assessment: - Prior to the procedure, a History and Physical was performed, and patient medications and allergies were reviewed. The patient is competent. The risks and benefits of the procedure and the sedation options and risks were discussed with the patient. All questions were answered and informed consent was obtained. Patient identification and proposed procedure were verified by the physician, the nurse and the poultry inspector in the pre-procedure area in the procedure room. Mental Status Examination: alert and oriented. Airway Examination: normal oropharyngeal airway and neck mobility. Respiratory Examination: clear to auscultation. CV Examination: normal. Prophylactic Antibiotics: The patient does not require prophylactic antibiotics. Prior Anticoagulants: The patient has taken no anticoagulant or antiplatelet agents. ASA Grade Assessment: III - A patient with severe systemic disease. After reviewing the risks and benefits, the patient was deemed in satisfactory condition to undergo the procedure. The anesthesia plan was to use monitored anesthesia care (MAC). Immediately prior to administration of medications, the patient was re-assessed for adequacy to receive sedatives. The heart rate, respiratory rate, oxygen saturations, blood pressure, adequacy of pulmonary ventilation, and response to care were monitored throughout the procedure. The physical status of the patient was re-assessed after the procedure. - Prior Aspirin/ NSAID therapy: The patient has taken aspirin, last dose was 1 day prior to procedure. After obtaining informed consent, the endoscope was passed under direct vision. Throughout the procedure, the patient's blood pressure, pulse, and oxygen saturations were monitored continuously. The Endoscope was introduced through the mouth, and advanced to the second part of duodenum. The upper GI endoscopy was accomplished with ease. The patient tolerated the procedure well. Complications: No immediate complications. Estimated blood loss: None. Procedure Code(s): --- Professional --- 62332, Esophagogastroduodenoscopy, flexible, transoral; with transendoscopic balloon dilation of esophagus (less than 30 mm diameter) 43904, 59, Esophagogastroduodenoscopy, flexible, transoral; with biopsy, single or multiple --- Technical --- 08227, Esophagogastroduodenoscopy, flexible, transoral; with transendoscopic balloon dilation of esophagus (less than 30 mm diameter) 58681, 59, Esophagogastroduodenoscopy, flexible, transoral; with biopsy, single or multiple Diagnosis Code(s): --- Professional --- K22.2, Esophageal obstruction K44.9, Diaphragmatic hernia without obstruction or gangrene R13.10, Dysphagia, unspecified --- Technical --- K22.2, Esophageal obstruction K44.9, Diaphragmatic hernia without obstruction or gangrene R13.10, Dysphagia, unspecified CPT copyright 2020 [employer]. All rights reserved. The codes documented in this report are preliminary and upon coal digger review may be revised to meet current compliance requirements. Attending Participation: I personally performed the entire procedure. LALITHA Powell MD 02/23/2022 8:09:15 AM This report has been signed electronically. Number of Addenda: 0 Note Initiated On: 02/23/2022 7:43 AM documented in this [facility]01-16-2023 History and physical note* Lalitha Powell MD - 02/23/2022 7:42 AM EST GASTROENTEROLOGY PHYSICIAN PRE PROCEDURE NOTE HPI: Prema Villalpando is a 81 y.o. female who is here today for planned endoscopic examination. All: Ticagrelor Meds: No current facility-administered medications on file prior to encounter. Current Outpatient Medications on File Prior to Encounter Medication Sig Dispense Refill aspirin 81 MG EC tablet Take 81 mg by mouth daily. ASPIRIN 81 PO 81 mg. atorvastatin (Lipitor) 80 MG tablet TAKE 1 TABLET BY MOUTH NIGHTLY 30 tablet 10 atorvastatin (Lipitor) 80 MG tablet Take 1 tablet by mouth Nightly. clopidogrel (Plavix) 75 MG tablet Take 75 mg by mouth daily. clopidogrel (Plavix) 75 MG tablet Take 1 tablet by mouth daily. dicyclomine (Bentyl) 10 MG capsule TAKE 1 CAPSULE BY MOUTH THREE TIMES DAILY BEFORE MEAL(S) fesoterodine ER (Toviaz) 4 MG 24 hr tablet Take 4 mg by mouth daily. Lancets (OneTouch Delica) lancets 30G TEST SUGAR ONCE A DAY memantine (Namenda) 5 MG tablet Take 5 mg by mouth 2 times daily. metFORMIN (Glucophage) 500 MG tablet Take 500 mg by mouth in the morning and 500 mg in the evening.Take with meals. metoprolol tartrate (Lopressor) 25 MG tablet Take 25 mg by mouth 2 times daily. metoprolol tartrate (Lopressor) 25 MG tablet Take 0.5 tablets by mouth 2 times daily. mirtazapine (Remeron) 15 MG tablet Take 15 mg by mouth. omeprazole (PriLOSEC) [address] capsule Take 40 mg by mouth every morning (before breakfast). Do notcrush or chew. omeprazole (PriLOSEC) [address] capsule Take 1 capsule by mouth daily. Email Data Sourceuch Ultra test strip TEST SUGAR ONCE A DAY oxybutynin (Ditropan) 5 MG tablet potassium chloride CR (Klor-Con M10) 10 MEQ ER tablet Take 10 mEq by mouth 2 times daily. Do not crush or chew. potassium chloride CR (Klor-Con M10) 10 MEQ ER tablet Take 1 tablet by mouth in the morning and 1 tablet in the evening. Take with meals. potassium chloride ER (Micro-K) 10 MEQ ER capsule TAKE 1 TABLET BY MOUTH TWICE DAILY WITH MEALS rivastigmine (Exelon) 3 MG capsule sertraline (Zoloft) 50 MG tablet Take 50 mg by mouth daily. therapeutic multivitamin-minerals (Theragran-M) tablet Take 1 tablet by mouth daily. tiZANidine (Zanaflex) 4 MG tablet TAKE 1 TABLET BY MOUTH THREE TIMES A DAY NEEDED *50 TABLETS TOLAST 30 DAYS* torsemide (Demadex) 20 MG tablet Take 20 mg by mouth daily. torsemide (Demadex) 20 MG tablet Take 1 tablet by mouth daily. ursodiol (Actigall) 300 MG capsule TAKE 1 CAPSULE BY MOUTH TWICE DAILY prednisoLONE acetate (Pred-Forte) 1 % ophthalmic suspension Dose = 1 drop(s), Eyes, both, BID, # 10 mL, 0 Refill(s) PMH: Past Medical History: Diagnosis Date Anemia Anxiety GERD (gastroesophageal reflux disease) H/O heart artery stent 08/04/2018 History of blood transfusion Hx of blood clots Hyperlipidemia Hypertension No reactions to anesthesia in the past. Airway patent PE: VS: BP (!) 145/65 Pulse (!) 112 Temp 36.3 C (97.3 F) (Tympanic) Resp 16 Ht 5' (1.524 m) Wt 97 lb (44 kg) SpO2 99% BMI 18.94 kg/m Body mass index is 18.94 kg/m . General: Patient in no distress CVS: irregular Respiratory: Clear to auscultation Abdomen: soft and non tender ASA score : 3 ASSESSMENT & PLAN: Procedure: EGD +/- dilation for dysphagia. Held plavix x 5 days Risks & benefits of the endoscopic procedure(s) and MAC /GA sedation were personally explained to patient / family along with alternatives to the procedure in detail including radiological and surgical options. The risks of the endoscopic procedure include but are not limited to risk from anesthesia, cardio- respiratory failure, infection, bleeding, perforation, pancreatitis with its sequelae , ARDS, multi-organ failure, damage to the adjacent organs, missed lesions and need for further procedure, surgeryor interventional radiological intervention, from procedure or complications. We made a shared decision to proceed with planned procedure. Andre CHRISTIANSEN Gastroenterology [employer] Work Phone: [phone] 384-356201-16-2023 History and physical note* Lalitha Powell MD - 02/23/2022 7:42 AM EST GASTROENTEROLOGY PHYSICIAN PRE PROCEDURE NOTE HPI: Prema Villalpando is a 81 y.o. female who is here today for planned endoscopic examination. All: Ticagrelor Meds: No current facility-administered medications on file prior to encounter. Current Outpatient Medications on File Prior to Encounter Medication Sig Dispense Refill aspirin 81 MG EC tablet Take 81 mg by mouth daily. ASPIRIN 81 PO 81 mg. atorvastatin (Lipitor) 80 MG tablet TAKE 1 TABLET BY MOUTH NIGHTLY 30 tablet 10 atorvastatin (Lipitor) 80 MG tablet Take 1 tablet by mouth Nightly. clopidogrel (Plavix) 75 MG tablet Take 75 mg by mouth daily. clopidogrel (Plavix) 75 MG tablet Take 1 tablet by mouth daily. dicyclomine (Bentyl) 10 MG capsule TAKE 1 CAPSULE BY MOUTH THREE TIMES DAILY BEFORE MEAL(S) fesoterodine ER (Toviaz) 4 MG 24 hr tablet Take 4 mg by mouth daily. Lancets (OneTouch Delica) lancets 30G TEST SUGAR ONCE A DAY memantine (Namenda) 5 MG tablet Take 5 mg by mouth 2 times daily. metFORMIN (Glucophage) 500 MG tablet Take 500 mg by mouth in the morning and 500 mg in the evening.Take with meals. metoprolol tartrate (Lopressor) 25 MG tablet Take 25 mg by mouth 2 times daily. metoprolol tartrate (Lopressor) 25 MG tablet Take 0.5 tablets by mouth 2 times daily. mirtazapine (Remeron) 15 MG tablet Take 15 mg by mouth. omeprazole (PriLOSEC) [address] capsule Take 40 mg by mouth every morning (before breakfast). Do notcrush or chew. omeprazole (PriLOSEC) [address] capsule Take 1 capsule by mouth daily. OneTouch Ultra test strip TEST SUGAR ONCE A DAY oxybutynin (Ditropan) 5 MG tablet potassium chloride CR (Klor-Con M10) 10 MEQ ER tablet Take 10 mEq by mouth 2 times daily. Do not crush or chew. potassium chloride CR (Klor-Con M10) 10 MEQ ER tablet Take 1 tablet by mouth in the morning and 1 tablet in the evening. Take with meals. potassium chloride ER (Micro-K) 10 MEQ ER capsule TAKE 1 TABLET BY MOUTH TWICE DAILY WITH MEALS rivastigmine (Exelon) 3 MG capsule sertraline (Zoloft) 50 MG tablet Take 50 mg by mouth daily. therapeutic multivitamin-minerals (Theragran-M) tablet Take 1 tablet by mouth daily. tiZANidine (Zanaflex) 4 MG tablet TAKE 1 TABLET BY MOUTH THREE TIMES A DAY NEEDED *50 TABLETS TOLAST 30 DAYS* torsemide (Demadex) 20 MG tablet Take 20 mg by mouth daily. torsemide (Demadex) 20 MG tablet Take 1 tablet by mouth daily. ursodiol (Actigall) 300 MG capsule TAKE 1 CAPSULE BY MOUTH TWICE DAILY prednisoLONE acetate (Pred-Forte) 1 % ophthalmic suspension Dose = 1 drop(s), Eyes, both, BID, # 10 mL, 0 Refill(s) PMH: Past Medical History: Diagnosis Date Anemia Anxiety GERD (gastroesophageal reflux disease) H/O heart artery stent 08/04/2018 History of blood transfusion Hx of blood clots Hyperlipidemia Hypertension No reactions to anesthesia in the past. Airway patent PE: VS: BP (!) 145/65 Pulse (!) 112 Temp 36.3 C (97.3 F) (Tympanic) Resp 16 Ht 5' (1.524 m) Wt 97 lb (44 kg) SpO2 99% BMI 18.94 kg/m Body mass index is 18.94 kg/m . General: Patient in no distress CVS: irregular Respiratory: Clear to auscultation Abdomen: soft and non tender ASA score : 3 ASSESSMENT & PLAN: Procedure: EGD +/- dilation for dysphagia. Held plavix x 5 days Risks & benefits of the endoscopic procedure(s) and MAC /GA sedation were personally explained to patient / family along with alternatives to the procedure in detail including radiological and surgical options. The risks of the endoscopic procedure include but are not limited to risk from anesthesia, cardio- respiratory failure, infection, bleeding, perforation, pancreatitis with its sequelae , ARDS, multi-organ failure, damage to the adjacent organs, missed lesions and need for further procedure, surgeryor interventional radiological intervention, from procedure or complications. We made a shared decision to proceed with planned procedure. Andre CHRISTIANSEN Gastroenterology documented in this [facility]04-27-2021 Hospital Discharge instructions* Instructions* Regina Gamboa RN - 06/04/2020 * Attachments The following attachments cannot be sent through Care Everywhere. * Thyroid: Biopsy: Fine-Needle: Post-op (Uzbek) documented in this [facility] Work Phone: [phone] 812-439101-11-2020 Hospital course Narrative* Tj Muniz MD - 02/18/2019 12:17 PM EST Discharge Summary Prema Jean-Baptiste Kwasi : 1940 ADMIT DATE: 02/11/2019 DISCHARGE DATE: 02/18/2019 PRIMARY CARE PHYSICIAN: MITA MORTON DO VISIT STATUS: Admission CODE STATUS: Full Code DISCHARGE DIAGNOSES: Gallstone cholecystitis-status post laparoscopic cholecystectomy done on 02/15/19 Choledocholelithiasis- s/p ERCP with stent placment to CBD and pancreatitic duct Post ERCP pancreatitis Coronary artery disease with stent placement to circumflex in July 2018 Hypertension Hyperlipidemia Gastroesophageal reflux disease/hiatal hernia protein calorie malnutrition HOSPITAL COURSE: 78-year-old female past medical history of STEMI in August 2018, status post stent placement to circumflex, hypertension, hyperlipidemia, gastroesophageal reflux disease/hiatal hernia, echo from July 2018 reviewed showed ejection fraction 67% admitted with abdominal pain, weight loss of 35 pounds since July 2018. Patient had cholelithiasis in September but surgery not done due to Coronary stent placement in July 2018 Workup during this admission showed potassium 3.4, creatinine 0.68 and lipase 164,hemoglobin 11.6 right upper quadrant ultrasonogram consistent with cholelithiasis, suspected choledocholithiasis MRCP- Cholelithiasis with marked gallbladder distention and small amount of pericholecystic fluid. Choledocholithiasis with likely 3-4 subcentimeter calculi in the common bile duct. Mild extrahepatic biliary ductal dilation, similar to the prior study. Very mild intrahepatic biliary ductal dilation, new since the prior study. Chronic findings including moderate to large hiatal hernia ERCP today and stent placment to CBD and pancreatitic duct on 02/15/2019,recommended to follow up EGD in 2-3 weeks for removal of stents Had laparoscopic cholecystectomy done on 02/15/2019 post operative day #1 she was complaining of nausea, abdominal pain, lipase was rechecked elevated at 1100, secondary to post-ERCP pancreatitis. Patient was on IV fluids, diet was gradually advanced On the day of discharge abdominal pain is improving Tolerating diet Afebrile Vital signs stable On examination- Cardiovascular: S1S2 heard, RRR Respiratory: Clear to auscultation bilaterally Abdomen: Soft, nontender , non-distended with normal bowel sounds. Extremity- no peripheral edema both lower extremities CONSULTANTS: Gastrointestinal, surgery team RECOMMENDED NEXT STEPS: #1 LFT to be rechecked in 1 week time #2 Will need follow up with gastrointestinal team for EGD in 2-3 weeks for removal of stents DISCHARGE MEDICATIONS: Prema Villalpando Home Medication Instructions JENNIFER:[id number] Printed on:02/18/19 3032 Medication Information aspirin 81 MG chewable tablet Take 1 tablet by mouth daily atorvastatin (LIPITOR) 80 MG tablet Take 1 tablet by mouth nightly clopidogrel (PLAVIX) 75 MG tablet Take 1 tablet by mouth daily dicyclomine (BENTYL) 10 MG capsule Take 1 capsule by mouth 3 times daily (before meals) metoprolol tartrate (LOPRESSOR) 25 MG tablet Take 1 tablet by mouth 2 times daily Multiple Vitamins-Minerals (THERAPEUTIC MULTIVITAMIN-MINERALS) tablet Take 1 tablet by mouth daily omeprazole (PRILOSEC) 40 MG delayed release capsule Take 1 capsule by mouth daily ondansetron (ZOFRAN) 4 MG tablet Take 1 tablet by mouth every 6 hours as needed for Nausea or Vomiting oxyCODONE-acetaminophen (PERCOCET) 5-325 MG per tablet Take 1 tablet by mouth every 6 hours as needed for Pain for up to 7 days. Intended supply: 7 days. Take lowest dose possible to manage pain potassium chloride (KLOR-CON M) 10 MEQ extended release tablet Take 1 tablet by mouth 2 times daily (with meals) psyllium (KONSYL) 28.3 % PACK Take 1 packet by mouth daily sertraline (ZOLOFT) 50 MG tablet Take 50 mg by mouth daily torsemide (DEMADEX) 20 MG tablet Take 1 tablet by mouth daily ursodiol (ACTIGALL) 300 MG capsule Take 1 capsule by mouth 2 times daily DIET: Dietary Nutrition Supplements: Clear Liquid Oral Supplement DIET CARDIAC; ACTIVITY: No restriction. up with assist COMPLEXITY OF FOLLOW UP: [] Moderate Complexity: follow up within 7-14 calendar days (46373) [] Severe Complexity: follow up within 7 calendar days (76531) FOLLOW UP TESTING, PENDING RESULTS OR REFERRALS AT TRANSITIONAL CARE VISIT: [] Yes [] No PENDING STUDIES: No DISPOSITION: Home FACILITY/HOME CARE AGENCY NAME: Follow up with Follow-up With Details Why Contact Info Mita Morton, In [address] [facility] [id number] Sahil Anderson MD In [address] [facility], [address] [place] [phone] Lisa Smiley MD In [address] [facility] [address] [place] [phone] INSTRUCTIONS TO MA/SW: Please call patient on day after discharge (must document patient contacted within 2 business days of discharge). FOLLOW UP QUESTIONS FOR MA/SW: 1. Did you get medications filled and taking them as instructed from discharge? 2. Are you following your discharge instructions from your hospital stay? 3. Please confirm patient is scheduled for a follow up appointment within the above time frame. DISCHARGE TIME: > 30 minutes SIGNED: Tj Muniz MD 02/18/2019, 12:17 PM documented in this [facility] Work Phone: [phone] 272-990301-11-2020 History of Present illness Narrative* Sharmila Lr MD - 02/18/2019 6:52 AM EST Department of General Surgery Daily Progress Note ADMIT DATE: 02/11/2019 TODAY'S DATE: 02/18/2019 SUBJECTIVE: No acute events overnight. Afebrile. VSS. Pain well controlled. No nausea or vomiting. Tolerating cardiac diet. Voiding without difficulty. Passing flatus. No BM. Ambulatory with walker. OBJECTIVE: VITALS: BP (!) 151/77 Pulse 85 Temp 98.3 F (36.8 C) (Temporal) Resp 18 Ht 5' (1.524 m) Wt115 lb (52.2 kg) SpO2 97% BMI 22.46 kg/m INTAKE/OUTPUT: Date 02/18/19 0000 - 02/18/19 2359 Shift 7054-1213 3931-5021 8027-6762 24 Hour Total INTAKE Shift Total(mL/kg) OUTPUT Urine(mL/kg/hr) 550 550 Shift Total(mL/kg) 550(10.5) 550(10.5) Weight (kg) 52.2 52.2 52.2 52.2 I/O last 3 completed shifts: In: 2171 [P.O.:1200; I.V.:971] Out: 1350 [Urine:1350] I/O this shift: In: - Out: 550 [Urine:550] PHYSICAL EXAM: Gen: NAD, awake, alert CV: +S1/S2, RRR Lungs: Symmetric chest rise, normal work of breathing Abd: Soft, non tender, non distended, incisions C/D/I with steri strips Skin: Warm, well perfused, no obvious rashes LABS CBC: Recent Labs 02/16/1910002/17/19 0042 02/18/19 0032 WBC 22.3* 19.0* 13.1* HGB 12.6 11.6* 11.3* HCT 37.3 34.3* 32.8* PLT 210 244 207 BMP: Recent Labs 02/16/1910002/17/19 0042 NA 140 139 K 4.2 4.1 CL 105 106 CO2 25 24 BUN 13 21* CREATININE 0.74 0.81 GLUCOSE 182* 125* Hepatic: Recent Labs 02/16/19100 02/10/20 0042 AST 100* 62* ALT 81* 60 BILITOT 0.5 0.5 ALKPHOS 83 75 Current Inpatient Medications Scheduled Meds: docusate sodium 100 mg Oral BID clopidogrel 75 mg Oral Daily acetaminophen 1,000 mg Oral Q6H potassium chloride 20 mEq Oral BID WC sodium chloride flush 3 mL Intravenous Q8H aspirin 81 mg Oral Daily dicyclomine 10 mg Oral TID AC metoprolol tartrate 25 mg Oral BID pantoprazole 40 mg Oral QAM AC sertraline 50 mg Oral Daily torsemide 20 mg Oral Daily sodium chloride flush 10 mL Intravenous 2 times per day Continuous Infusions: sodium chloride 50 mL/hr at 02/17/19 1637 PRN Meds:ipratropium-albuterol, morphine OR morphine, oxyCODONE OR oxyCODONE, sodium chloride flush, magnesium hydroxide, ondansetron ASSESSMENT AND PLAN: 78 y.o. female with choledocholithiasis - Post-ERCP pancreatitis resolved. Lipase normalized. - Tolerating cardiac diet. Saline lock IVF - Pain control as needed - Continue aspirin / Plavix - Leukocytosis improving. WBC 13.1 from 19. - Incentive spirometry - Activity as tolerated / Ambulate - Stable for discharge home today from surgical standpoint Sharmila Lr MD, [id number] * Iesha Loya, PT - 02/17/2019 3:22 PM EST Physical Therapy Facility/Department: [facility] MED SURG PT REEVALUATION NAME: Prema Villalpando : 1940 Date of Service: 02/17/2019 Discharge Recommendations: Home with assist PRN, Home with Home health PT PT Equipment Recommendations Equipment Needed: No Other: has a walker and a cane at home, is not currently using it. Assessment Body structures, Functions, Activity limitations: Decreased functional mobility ;Decreased strength;Decreased cognition;Decreased endurance Assessment: Pt. c/o pain, and that she has not yet had a BM. She is ambulating well, transferring without difficulty, and was fatigued after ambulating. She is going to stay with her daughter for at least a few days when she goes home. She lives in a trailer on the daughter's property. She does rely on her daughter for guidance at times. Treatment Diagnosis: decreased functional mobility and independence. Prognosis: Good Decision Making: Low Complexity PT Education: Goals;PT Role;General Safety REQUIRES PT FOLLOW UP: Yes Activity Tolerance Activity Tolerance: Patient Tolerated treatment well;Patient limited by pain;Patient limited by fatigue Patient Diagnosis(es): The primary encounter diagnosis was Calculus of bile duct without cholecystitis with obstruction. A diagnosis of Dilation of biliary tract was also pertinent to this visit. has a past medical history of Anemia, H/O heart artery stent, History of blood transfusion, Hx of blood clots, Hyperlipidemia, and Hypertension. has a past surgical history that includes Throat surgery (2013); Colonoscopy; eye surgery (Bilateral); Upper gastrointestinal endoscopy (08/08/2018); Colonoscopy (09/21/2018); and ERCP (02/15/2019). Restrictions Restrictions/Precautions Restrictions/Precautions: Surgical Protocols, General Precautions Required Braces or Orthoses?: Yes Required Braces or Orthoses Other: Abdominal Binder Position Activity Restriction Other position/activity restrictions: Pt. is a NO INFO Please do not give out info. Subjective General Chart Reviewed: Yes Additional Pertinent Hx: Pt. had a lap divya on 02/15/2019 Response To Previous Treatment: Not applicable;Patient with no complaints from previous session. Family / Caregiver Present: No Subjective Subjective: Agreeable to ambulate in the kraft with PT. General Comment Comments: I can't make a bowel movement, so I am waiting on that. I have no problem passing gas. Pain Screening Patient Currently in Pain: Yes Pain Assessment Pain Location: Abdomen Pain Orientation: Left Response to Pain Intervention: Patient Satisfied Vital Signs Patient Currently in Pain: Yes Orientation Orientation Overall Orientation Status: Within Functional Limits Cognition Objective Bed mobility Bridging: Modified independent Rolling to Left: Supervision Rolling to Right: Supervision Supine to Sit: Supervision Scooting: Supervision Comment: log roll technique with cues. Transfers Sit to Stand: Stand by assistance Stand to sit: Stand by assistance Bed to Chair: Stand by assistance Comment: toilet transfers performed independently. Patient performed her own pericare, and hand washing after bathrooming. Ambulation Ambulation?: Yes More Ambulation?: No Ambulation 1 Surface: level tile Device: Rolling Walker Assistance: Modified Independent Gait Deviations: Slow Jimmy;Decreased step length Distance: 100' x 2 Stairs/Curb Stairs?: No Balance Posture: Good Sitting - Static: Good Sitting - Dynamic: Good;- Standing - Static: Fair;+ Standing - Dynamic: Fair;+ AROM RLE (degrees) RLE AROM: WFL AROM LLE (degrees) LLE AROM : WFL Strength RLE Comment: 4/5 Strength LLE Comment: 4/5 Strength Other Other: core strength is fair Other Activities: Re-evaluation performed Moist heat: Pt. has a heating pad against her abdomen and states that it feels really good. G-Code OutComes Score AM-PAC Score AM-PAC Inpatient Mobility Raw Score : 18 (02/13/191721) AM-PAC Inpatient T-Scale Score : 43.63 (02/13/191721) Mobility Inpatient CMS 0-100% Score: 46.58 (02/13/191721) Mobility Inpatient CMS G-Code Modifier : CK (02/13/191721) Goals Short term goals Time Frame for Short term goals: 10 days Short term goal 1: bed mobility indep. Short term goal 2: transfers modif. indep. Short term goal 3: gait x 150' modif. indep. Short term goal 4: steps x 3 with single railing Patient Goals Patient goals : to get better and go home. Plan Plan Times per week: 5 Plan weeks: 1 Current Treatment Recommendations: Gait Training, Stair training, Balance Training, Endurance Training Safety Devices Type of devices: Call light within reach, Gait belt Restraints Initially in place: No Therapy Time Individual Concurrent Group Co-treatment Time In 1445 Time Out 1515 Minutes 30 Timed Code Treatment Minutes: (low eval, gait) Iesha Loya PT * Tj Muniz MD - 02/17/2019 9:03 AM EST Hospitalist Progress Note 02/17/2019 9:03 AM [phone]: Please page me for patient care issues. [phone]: Please page [facility] night Hospitalist for any issues. Subjective: Admit Date: 02/11/2019 PCP: MITA MORTON DO Room#: 5125/243231 Interval History: Patient seen and examined No new event overnight abdomen pain is improving No nausea, vomiting, fever spike No bowel movement Lipase today down to 586 Wbc 19 DIET CLEAR LIQUID; Dietary Nutrition Supplements: Clear Liquid Oral Supplement Patient Vitals for the past 96 hrs (Last 3 readings): Weight 02/16/19 0549 111 lb 9.6 oz (50.6 kg) 02/15/19 0627 109 lb (49.4 kg) 02/14/19 0520 109 lb 8 oz (49.7 kg) Medications: sodium chloride 75 mL/hr at 02/17/19 0039 clopidogrel 75 mg Oral Daily acetaminophen 1,000 mg Oral Q6H ketorolac 15 mg Intravenous Q6H potassium chloride 20 mEq Oral BID WC sodium chloride flush 3 mL Intravenous Q8H aspirin 81 mg Oral Daily dicyclomine 10 mg Oral TID AC metoprolol tartrate 25 mg Oral BID pantoprazole 40 mg Oral QAM AC sertraline 50 mg Oral Daily torsemide 20 mg Oral Daily sodium chloride flush 10 mL Intravenous 2 times per day LABS: CBC: Recent Labs 02/15/191702/16/1910002/17/19 004 WBC 7.4 22.3* 19.0* RBC 3.88 3.84 3.56* HGB 12.8 12.6 11.6* HCT 36.6 37.3 34.3* MCV 94.4 97.2 96.5 RDW 12.1 12.3 12.6 PLT 223 210 244 BMP: Recent Labs 02/15/191702/16/1910002/17/19 004 NA 141 140 139 K 4.0 4.2 4.1 CL 104 105 106 CO2 28 25 24 BUN 10 13 21* CREATININE 0.87 0.74 0.81 GLUCOSE 110* 182* 125* CALCIUM 9.6 9.4 8.6 ANIONGAP 8 11 9 LIVER PROFILE: Recent Labs 02/15/191702/16/1910002/17/19 004 AST 80* 100* 62* ALT 76* 81* 60 BILITOT 0.6 0.5 0.5 ALKPHOS 94 83 75 LABALBU 3.7 3.9 3.2* PROT 7.0 6.7 5.9* PT/INR: No results for input(s): PROTIME, INR in the last 72 hours. CARDIAC ENZYMES: No results for input(s): TROPONINI in the last 72 hours. Procalcitonin: Lab Results Component Value Date PROCAL <0.10 09/15/2018 Objective: Vitals: BP 118/60 Pulse 84 Temp 99.7 F (37.6 C) (Temporal) Resp 16 Ht 5' (1.524 m) Wt 111lb 9.6 oz (50.6 kg) SpO2 94% BMI 21.80 kg/m Pulse Ox: SpO2 Av % Min: 92 % Max: 97 % Supplemental O2: O2 Flow Rate (L/min): 6 L/min General appearance: No apparent distress, HEENT: Eyes: No scleral icterus No pallor Oral: Tongue is semi-moist Cardiovascular: S1S2 heard, RRR Respiratory: Clear to auscultation bilaterally Abdomen: Soft, nontender , non-distended with normal bowel sounds. Musculoskeletal: No obvious deformities seen Skin: No visible rashes or lesions. Neurology- no focal neurology,Awake alert Extremity- no peripheral edema both lower extremities Assessment Gallstone cholecystitis-status post laparoscopic cholecystectomy done on 02/15/19 Choledocholelithiasis- s/p ERCP with stent placment to CBD and pancreatitic duct Post ERCP pancreatitis leukocytosis Coronary artery disease with stent placement to circumflex in July 2018 Hypertension Hyperlipidemia Gastroesophageal reflux disease/hiatal hernia Hypokalemia, replaced Malnutrition Constipation Plan Continue current treatment Advance diet WBC,lipase in am Colace 100 mg po bid scd for DVT prophylaxis Continue current treatment Labs in am Patient was informed about all work up and treatment plan Discussed with nursing staff Advance Directive: Full Code Discharge planning: anticipated dc home tomorrow if abdomen pain improves and tolerating diet Tj Muniz MD Division of Hospitalist Medicine Inpatient Medical Services PAGER: [phone] * Sharmila Lr MD - 02/17/2019 6:41 AM EST Department of General Surgery Daily Progress Note ADMIT DATE: 02/11/2019 TODAY'S DATE: 02/17/2019 SUBJECTIVE: No acute events overnight. Afebrile. VSS. Pain control improved. No nausea or emesis. Tolerated clear liquids yesterday. Voiding without difficulty. No flatus or BM. OBJECTIVE: VITALS: BP 118/60 Pulse 84 Temp 99.7 F (37.6 C) (Temporal) Resp 16 Ht 5' (1.524 m) Wt 111lb 9.6 oz (50.6 kg) SpO2 94% BMI 21.80 kg/m INTAKE/OUTPUT: Date 02/17/19 - 02/17/19 2359 Shift 0226-7889 1746-8522 1035-0304 24 Hour Total INTAKE Shift Total(mL/kg) OUTPUT Urine(mL/kg/hr) 500 500 Shift Total(mL/kg) 500(9.9) 500(9.9) Weight (kg) 50.6 50.6 50.6 50.6 I/O last 3 completed shifts: In: 2192 [P.O.:1100; I.V.:1092] Out: 600 [Urine:600] I/O this shift: In: - Out: 500 [Urine:500] PHYSICAL EXAM: Gen: NAD, awake, alert CV: +S1/S2, RRR Lungs: Symmetric chest rise, normal work of breathing Abd: Soft, non tender, non distended, incisions C/D/I with steri strips Skin: Warm, well perfused, no obvious rashes LABS CBC: Recent Labs 02/15/191702/16/1910002/17/19 0042 WBC 7.4 22.3* 19.0* HGB 12.8 12.6 11.6* HCT 36.6 37.3 34.3* PLT 223 210 244 BMP: Recent Labs 02/15/198 02/16/19 0101 02/17/19 0042 NA 141 140 139 K 4.0 4.2 4.1 CL 104 105 106 CO2 28 25 24 BUN 10 13 21* CREATININE 0.87 0.74 0.81 GLUCOSE 110* 182* 125* Hepatic: Recent Labs 02/15/198 02/16/1910002/17/19 0042 AST 80* 100* 62* ALT 76* 81* 60 BILITOT 0.6 0.5 0.5 ALKPHOS 94 83 75 Current Inpatient Medications Scheduled Meds: clopidogrel 75 mg Oral Daily acetaminophen 1,000 mg Oral Q6H ketorolac 15 mg Intravenous Q6H potassium chloride 20 mEq Oral BID WC sodium chloride flush 3 mL Intravenous Q8H aspirin 81 mg Oral Daily dicyclomine 10 mg Oral TID AC metoprolol tartrate 25 mg Oral BID pantoprazole 40 mg Oral QAM AC sertraline 50 mg Oral Daily torsemide 20 mg Oral Daily sodium chloride flush 10 mL Intravenous 2 times per day Continuous Infusions: sodium chloride 75 mL/hr at 02/17/19 0039 PRN Meds:ipratropium-albuterol, morphine OR morphine, oxyCODONE OR oxyCODONE, sodium chloride flush, magnesium hydroxide, ondansetron ASSESSMENT AND PLAN: 78 y.o. female with choledocholithiasis - Plavix resumed today. Continue aspirin - Concern for post-ERCP pancreatitis. Lipase 586 from 1101. - Tolerating clear liquids. Advance to cardiac diet as tolerated. - Leukocytosis improving. WBC 19 from 22.3. - Pain control as needed - Incentive spirometry - Activity as tolerated - DVT ppx: SCDs - Medical management per primary - Stable for discharge home today from surgical standpoint Sharmila Lr MD, [id number] Associated attestation - Sahil Anderson MD - 02/17/2019 4:58 PM EST [facility] - [facility] Phys[facility] Surgery Patient Name: Prema Villalpando Date: 02/17/19 Pain well controlled, she is ambulatory. Her lipase is trending down, she is tolerating diet with minimal discomfort, mostly postoperative discomfort. BP 118/60 Pulse 84 Temp 99.7 F (37.6 C) (Temporal) Resp 16 Ht 5' (1.524 m) Wt 111 lb 9.6 oz (50.6 kg) SpO2 94% BMI 21.80 kg/m CBC: Recent Labs 02/15/19 0018 02/16/19 0101 02/17/19 0042 WBC 7.4 22.3* 19.0* HGB 12.8 12.6 11.6* HCT 36.6 37.3 34.3* PLT 223 210 244 BMP: Recent Labs 02/15/19 0018 02/16/19 0101 02/17/19 0042 NA 141 140 139 K 4.0 4.2 4.1 CL 104 105 106 CO2 28 25 24 BUN 10 13 21* CREATININE 0.87 0.74 0.81 GLUCOSE 110* 182* 125* Hepatic: Recent Labs 02/15/19 0018 02/16/19 0101 02/17/19 0042 ALKPHOS 94 83 75 ALT 76* 81* 60 AST 80* 100* 62* PROT 7.0 6.7 5.9* BILITOT 0.6 0.5 0.5 BILIDIR 0.0 0.0 0.0 LABALBU 3.7 3.9 3.2* Abdomen: Soft, mildly tender, nondistended. Wounds healing well. Plan: POD #2, laparoscopic cholecystectomy Monitor for post-ERCP pancreatitis, elevated lipase, now trending down Okay for diet. Gen. Surgery, no further workup planned, okay for discharge when medically stable Okay to resume Plavix I personally supervised my Resident/Surgical Fellow in the evaluation and management of Prema Villalpando in the development of a treatment plan for this patient. I personally interviewed the patient and performed an individual physical examination. In addition, I discussed the patient's condition and treatment options with them. I have also reviewed and agree with the past medical, family and social history and care plan unless otherwise noted. All of the patient's questions were answered. * Yaz De La Torre MS, RD, LD - 02/16/2019 2:13 PM EST Nutrition Assessment Type and Reason for Visit: Reassess Nutrition Recommendations: 1. Continue with clear liquid diet and advance diet as able with goal diet of Low Fat 2. Per MNT provide Ensure Clear (240 sean/8 gms protein) with meals while on clear liquid diet and suggest resume Ensure Enlive supplement once diet advanced to full liquid 3. Continue with daily weights 4. If unable to advance diet past clear liquid, may need to consider alternate nutrition of TPN 5. RD continue to monitor overall nutritional status and follow up weekly Nutrition Assessment: Patient s/p Gallstone cholecystitis-status post laparoscopic cholecystectomy done on 02/15/19 and Choledocholelithiasis- s/p ERCP with stent placment to CBD and pancreatitic duct. Patient sitting in bedside chair just finished clear liquid diet. Patient unsure why Cardiac diet was cancelled and now on clear liquid diet. RN in room and explained patients lipase is now elevated and diet changed to clear liquid (? pancreatitis). Patient has Ensure Enlive supplement in place. Will modify to Ensure Clear with meals due to diet change. Malnutrition Assessment: Malnutrition Status: Meets the criteria for severe malnutrition Context: Chronic illness Findings of the 6 clinical characteristics of malnutrition (Minimum of 2 out of 6 clinical characteristics is required to make the diagnosis of moderate or severe Protein Calorie Malnutrition based on AND/ASPEN Guidelines): 1. Energy Intake-Less than or equal to 75% of estimated energy requirement, Greater than or equal to 7 days 2. Weight Loss-10% loss or greater, in 6 months Nutrition Risk Level: High Nutrient Needs: Estimated Daily Total Kcal: 9846-9664 (25-28) Estimated Daily Protein (g): 51-61 (1.0-1.2) Estimated Daily Total Fluid (ml/day): per MD Nutrition Diagnosis: Problem: Severe malnutrition, In context of chronic illness Etiology: related to Alteration in GI function ? Signs and symptoms: as evidenced by Diet history of poor intake, Weight loss greater than or equal to 10% in 6 months Objective Information: Nutrition-Focused Physical Findings: +bowel sounds; no edema noted; +I&O; Chaim 20 Wound Type: Surgical Wound Current Nutrition Therapies: Oral Diet Orders: Full Liquid Oral Diet intake: 76-100%(clear liquid) Oral Nutrition Supplement (ONS) Orders: None ONS intake: Unable to assess Anthropometric Measures: Ht: 5' (152.4 cm) Current Body Wt: 111 lb (50.3 kg)(standing scale (^2# last 48 hours) -2# total since admission) Admission Body Wt: 103 lb (46.7 kg)(stated) % Weight Change: , 18.7% weight loss in 6 months: (08/13/18) 139# --> (02/12/19) 113# [place] Body Wt: 100 lb (45.4 kg), BMI Classification: BMI 18.5 - 24.9 Normal Weight Nutrition Interventions: Continue current diet, Modify current ONS Continued Inpatient Monitoring Nutrition Evaluation: Evaluation: Progressing toward goals Goals: Patient consume >50% meals/ONS and tolerate without GI distress Monitoring: Meal Intake, Supplement Intake, Diet Tolerance, Nutrition Progression, Skin Integrity, Wound Healing, I&O, Pertinent Labs, Weight, Monitor Bowel Function Contact Number: pager [phone] * JosrCarina, OT - 02/16/2019 11:29 AM EST Occupational Therapy Occupational Therapy Initial Assessment Date: 02/16/2019 Patient Name: Prema Villalpando : 1940 Date of Service: 02/16/2019 Discharge Recommendations: Home with assist PRN Assessment Performance deficits / Impairments: Decreased functional mobility ;Decreased ADL status;Decreased strength;Decreased safe awareness;Decreased endurance Assessment: OT eval completed. Pt presents with above deficits limiting functional indep. Pt safe to return home but suggested pt stay with daughter initially post discharge for safety. Prognosis: Good Decision Making: Low Complexity Exam: [facility] OT Education: OT Role;Plan of Care;ADL Adaptive Strategies;Transfer Training REQUIRES OT FOLLOW UP: Yes Activity Tolerance Activity Tolerance: Patient Tolerated treatment well;Patient limited by pain Safety Devices Safety Devices in place: Yes Type of devices: Left in chair;Call light within reach;Nurse notified Restraints Initially in place: No Patient Diagnosis(es): The primary encounter diagnosis was Calculus of bile duct without cholecystitis with obstruction. A diagnosis of Dilation of biliary tract was also pertinent to this visit. has a past medical history of Anemia, H/O heart artery stent, History of blood transfusion, Hx of blood clots, Hyperlipidemia, and Hypertension. has a past surgical history that includes Throat surgery (2013); Colonoscopy; eye surgery (Bilateral); Upper gastrointestinal endoscopy (08/08/2018); Colonoscopy (09/21/2018); and ERCP (02/15/2019). Restrictions Restrictions/Precautions Restrictions/Precautions: Surgical Protocols, General Precautions Required Braces or Orthoses?: Yes Required Braces or Orthoses Other: Abdominal Binder Subjective General Chart Reviewed: Yes Patient assessed for rehabilitation services?: Yes Family / Caregiver Present: No Diagnosis: Pt admitted with cholecystitis S/P ERCP, stent placement and lap divya 02/15/19. Subjective Subjective: Pt reclined in bed, agreeable to OT eval. General Comment Comments: R hand dominant Patient Currently in Pain: Yes Pain Assessment Pain Assessment: 0-10 Pain Level: (8 on L abdomen and 6 on R abdomen) Pain Type: Acute pain;Surgical pain Pain Location: Abdomen Pain Descriptors: Aching;Sore Pain Frequency: Continuous Functional Pain Assessment: Prevents or interferes some active activities and ADLs Non-Pharmaceutical Pain Intervention(s): Ambulation/Increased Activity;Repositioned;Rest Response to Pain Intervention: Patient Satisfied Social/Functional History Social/Functional History Lives With: Alone Type of Home: Trailer(trailer is on daughter's property) Home Layout: One level Home Access: Stairs to enter with rails Entrance Stairs - Number of Steps: 4 Bathroom Shower/Tub: Tub/Shower unit Bathroom Toilet: Standard Bathroom Equipment: Hand-held shower, Grab bars in shower, Shower chair Bathroom Accessibility: Accessible Home Equipment: Rolling walker Receives Help From: Family ADL Assistance: Independent Homemaking Assistance: Independent Homemaking Responsibilities: Yes Ambulation Assistance: Independent Transfer Assistance: Independent Active Leasing Agent: Yes Mode of Transportation: Car Occupation: Retired Additional Comments: pt normally indep with ADL and mobility with FWW. Pt drives self and grocery shops with daughter. Daughter lives on same property and pt states she can stay with daughter after surgery if needed. Objective Vision: Within Functional Limits Hearing: Exceptions to WFL Hearing Exceptions: Hard of hearing/hearing concerns;Bilateral hearing aid Orientation Overall Orientation Status: Within Functional Limits Observation/Palpation Posture: Good Observation: abdominal binder too big, steri strips over incisions from probes Balance Sitting Balance: Supervision Standing Balance: Supervision Functional Mobility Functional - Mobility Device: Rolling Walker Activity: To/from bathroom;Other;Retrieve items Assist Level: Supervision Functional Mobility Comments: Supv functional amb in room and kraft using FWW. Supv item retrieval from cupboards ay various heights. Pain level remained the same throughout session (no increase in pain). Toilet Transfers Toilet - Technique: Ambulating Equipment Used: Raised toilet seat with rails Toilet Transfer: Supervision Toilet Transfers Comments: cues for hand placement ADL Feeding: Independent Grooming: Supervision UE Bathing: Supervision LE Bathing: Stand by assistance UE Dressing: Minimal assistance LE Dressing: Stand by assistance Toileting: Stand by assistance Additional Comments: Treatment: MIn assist to change abdominal binder (large to small). Supv to don/doff slipper socks seated EOB by crossing LE over opposite knee. SBA toileting. Supv washing hands while standing at sink. All other levels estimated. Tone RUE RUE Tone: Normotonic Tone LUE LUE Tone: Normotonic Coordination Coordination and Movement description: Right UE;Left UE;Tremors(mild) Bed mobility Rolling to Right: Supervision Supine to Sit: Supervision Scooting: Supervision Comment: log roll technique with cues Transfers Sit to stand: Supervision Stand to sit: Supervision Transfer Comments: cues for hand placement Cognition Overall Cognitive Status: WFL Sensation Overall Sensation Status: WFL LUE AROM (degrees) LUE General AROM: grossly WFL RUE AROM (degrees) RUE General AROM: grossly WFL LUE Strength LUE Strength Comment: at least 3+/5 shldr, distal 4-/5 RUE Strength RUE Strength Comment: at least 3+/5 shldr, distal 4-/5 Plan Plan Times per week: 3-5x Plan weeks: 2 weeks Current Treatment Recommendations: Strengthening, ROM, Balance Training, Functional Mobility Training, Endurance Training, Pain Management, Safety Education & Training, Patient/Caregiver Education & Training, Equipment Evaluation, Education, & procurement, Positioning, Self-Care / ADL, Home Management Training, Cognitive/Perceptual Training OutComes Score [facility] Daily Activity Inpatient How much help for putting on and taking off regular lower body clothing?: A Little How much help for Bathing?: A Little How much help for Toileting?: A Little How much help for putting on and taking off regular upper body clothing?: None How much help for taking care of personal grooming?: None How much help for eating meals?: None AM-[facility] Inpatient Daily Activity Raw Score: 21 -[facility] Inpatient ADL T-Scale Score : 44.27 ADL Inpatient CMS 0-100% Score: 32.79 ADL Inpatient CMS G-Code Modifier : CJ Goals Short term goals Time Frame for Short term goals: 2 weeks Short term goal 1: Modif indep LE ADL Short term goal 2: Modif indep toilet transfer and toileting Short term goal 3: Indep donning abdominal binder Short term goal 4: Pt will report pain level at 3/10 or less during activity Patient Goals Patient goals : to have less pain Therapy Time Individual Concurrent Group Co-treatment Time In 1045 Time Out 1114 Minutes 29 Timed Code Treatment Minutes: 10 Minutes(ADL) Goals and/or treatment plan was established in collaboration with patient/family/other representatives. Patient's Occupational Therapy Plan of Care supervision is transferred to [facility] Occupational Therapist. Carina Ovalles OTR/L * Debbi Walters RN - 02/16/2019 11:18 AM EST Lipase high at 1,101. Dr. Muniz paged to notify. Lila Funk PA-C also notified per Dr. Muniz request. * Kb Hamlin [facility] - 02/16/2019 10:19 AM EST Patient Evaluation Form The patient is currently receiving DuoNeb Q4 while awake Points 0 1 2 3 4 Points Totals Pulmonary Status (-/+) History Smoking history < 20 pack years Smoking history > 20 pack years Pulmonary Disorder (acute or chronic) Severe or Chronic with Exacerbation 0 Surgical Status No Surgery Trach PEG General Surgery Lower Abdominal Thoracic or Upper Abdominal Thoracic with Pulmonary Disorder 2 Chest X-ray Clear None Ordered Chronic Changes CXR results Pending Infiltrates, atelectasis, pleural effusion, or edema Infiltrates in more than one lobe Infiltrate + Atelectasis, &/or pleural effusion 0 Respiratory Pattern Regular, RR = 12-20 Increased, RR = 21-25 MCCURDY, irregular, or RR = 26-30 Decreased FEV1 or RR = 31-35 Severe SOB, used of of accessory muscles, or RR = > 35 0 Mental Status Alert, oriented, cooperative Confused, but follows commands Lethargic or un-able to follow commands Obtunded Comatose 0 Breath Sounds Clear to auscultation Decreased unilaterally or in bases only Decreased bilaterally Crackles or intermittent wheezes Wheezes 2 Cough Strong, spontaneous, & nonproductive Strong, spontaneous, & productive Weak, nonproductive Weak, productive or with wheezes No spontaneous cough or may require suctioning 0 Level of Activity Ambulatory Ambulatory with Assist Non-ambulatroy Paraplegic Quadriplegic 1 Triage 1 > 20 pts Triage 2 16-20 pts Triage 3 11- 15 pts Triage 4 6 - 10 pts Triage 5 0 - 5 pts TOTAL POINTS = 5 Triage Score = 5 Changing Therapy to DuoNeb PRN * Tj Muniz MD - 02/16/2019 8:32 AM EST Hospitalist Progress Note 02/16/2019 8:32 AM [phone]: Please page me for patient care issues. [phone]: Please page [facility] night Hospitalist for any issues. Subjective: Admit Date: 02/11/2019 PCP: MITA MORTON DO Room#: 5125/201576 Interval History: Patient seen and examined No new event overnight C/o upper abdomen pain No nausea, vomiting, fever spike had ERCP yesterday and stent placment to CBD and pancreatitic duct per nursing staff had laparoscopic cholecystectomy done yesterday no fever spike noted WBC today 22.3 Dietary Nutrition Supplements: Standard High Calorie Oral Supplement DIET CARDIAC; Patient Vitals for the past 96 hrs (Last 3 readings): Weight 02/16/19 0549 111 lb 9.6 oz (50.6 kg) 02/15/19 0627 109 lb (49.4 kg) 02/14/19 0520 109 lb 8 oz (49.7 kg) Medications: acetaminophen 1,000 mg Oral Q6H ketorolac 15 mg Intravenous Q6H ipratropium-albuterol 1 ampule Inhalation Q4H WA potassium chloride 20 mEq Oral BID WC sodium chloride flush 3 mL Intravenous Q8H aspirin 81 mg Oral Daily atorvastatin 80 mg Oral Nightly dicyclomine 10 mg Oral TID AC metoprolol tartrate 25 mg Oral BID pantoprazole 40 mg Oral QAM AC sertraline 50 mg Oral Daily torsemide 20 mg Oral Daily sodium chloride flush 10 mL Intravenous 2 times per day LABS: CBC: Recent Labs 02/15/19 0018 02/16/19 0101 WBC 7.4 22.3* RBC 3.88 3.84 HGB 12.8 12.6 HCT 36.6 37.3 MCV 94.4 97.2 RDW 12.1 12.3 PLT 223 210 BMP: Recent Labs 02/14/19 0126 02/15/19 0018 02/16/19 0101 NA -- 141 140 K 3.8 4.0 4.2 CL -- 104 105 CO2 -- 28 25 BUN -- 10 13 CREATININE -- 0.87 0.74 GLUCOSE -- 110* 182* CALCIUM -- 9.6 9.4 ANIONGAP -- 8 11 LIVER PROFILE: Recent Labs 02/15/19 0018 02/16/19 0101 AST 80* 100* ALT 76* 81* BILITOT 0.6 0.5 ALKPHOS 94 83 LABALBU 3.7 3.9 PROT 7.0 6.7 PT/INR: No results for input(s): PROTIME, INR in the last 72 hours. CARDIAC ENZYMES: No results for input(s): TROPONINI in the last 72 hours. Procalcitonin: Lab Results Component Value Date PROCAL <0.10 09/15/2018 Objective: Vitals: BP (!) 133/58 Pulse 69 Temp 98 F (36.7 C) (Oral) Resp 18 Ht 5' (1.524 m) Wt 111 lb 9.6 oz (50.6 kg) SpO2 94% BMI 21.80 kg/m Pulse Ox: SpO2 Av.9 % Min: 92 % Max: 100 % Supplemental O2: O2 Flow Rate (L/min): 6 L/min General appearance: No apparent distress, HEENT: Eyes: No scleral icterus No pallor Oral: Tongue is semi-moist Cardiovascular: S1S2 heard, RRR Respiratory: Clear to auscultation bilaterally Abdomen: Soft, nontender , non-distended with normal bowel sounds. Musculoskeletal: No obvious deformities seen Skin: No visible rashes or lesions. Neurology- no focal neurology,Awake alert Extremity- no peripheral edema both lower extremities Assessment Gallstone cholecystitis-status post laparoscopic cholecystectomy done on 02/15/19 Choledocholelithiasis- s/p ERCP with stent placment to CBD and pancreatitic duct Rule out post ERCP pancreatitis leukocytosis Coronary artery disease with stent placement to circumflex in July 2018 Hypertension Hyperlipidemia Gastroesophageal reflux disease/hiatal hernia Hypokalemia, replaced Malnutrition Plan Continue current treatment Plavix can be restarted tomorrow per surgery monitor WBC Check lipase scd for DVT prophylaxis Continue current treatment Labs in am Patient was informed about all work up and treatment plan Discussed with nursing staff Advance Directive: Full Code Discharge planning: Tj Muniz MD Division of Hospitalist Medicine Inpatient Medical Services PAGER: [phone] Addendum patient was complaining of abdominal pain today lipase was rechecked which was 1100, likely post ERCP pancreatitis clear liquid diet IV fluid continue pain medication gastrointestinal team following * Lila Vance PA-C - 02/16/2019 7:24 AM EST Department of Internal Medicine Gastroenterology Attending Progress Note SUBJECTIVE: Overall she feels okay, states she has some RUQ soreness from the procedure. Denies nausea, vomiting, or bowel movements. Endorses flatus. She is tolerating a general diet this AM. Medications Current Facility-Administered Medications: morphine sulfate (PF) injection 2 mg, 2 mg, Intravenous,Q2H PRN OR morphine sulfate (PF) injection 4 mg, 4 mg, Intravenous, Q2H PRN acetaminophen (TYLENOL) tablet 1,000 mg, 1,000 mg, Oral, Q6H oxyCODONE (ROXICODONE) immediate release tablet 2.5 mg, 2.5 mg, Oral, Q4H PRN OR oxyCODONE (ROXICODONE) immediate release tablet 5 mg, 5 mg, Oral, Q4H PRN ketorolac (TORADOL) injection 15 mg, 15 mg, Intravenous, Q6H ipratropium-albuterol (DUONEB) nebulizer solution 1 ampule, 1 ampule, Inhalation, Q4H WA potassium chloride (KLOR-CON M) extended release tablet 20 mEq, 20 mEq, Oral, BID WC [COMPLETED] Saline lock IV, , , Continuous AND sodium chloride flush 0.9 % injection 3 mL, 3 mL, Intravenous, Q8H aspirin chewable tablet 81 mg, 81 mg, Oral, Daily atorvastatin (LIPITOR) tablet 80 mg, 80 mg, Oral, Nightly dicyclomine (BENTYL) capsule 10 mg, 10 mg, Oral, TID AC metoprolol tartrate (LOPRESSOR) tablet 25 mg, 25 mg, Oral, BID pantoprazole (PROTONIX) tablet 40 mg, 40 mg, Oral, QAM AC sertraline (ZOLOFT) tablet 50 mg, 50 mg, Oral, Daily torsemide (DEMADEX) tablet 20 mg, 20 mg, Oral, Daily sodium chloride flush 0.9 % injection 10 mL, 10 mL, Intravenous, 2 times per day sodium chloride flush 0.9 % injection 10 mL, 10 mL, Intravenous, PRN magnesium hydroxide (MILK OF MAGNESIA) 400 MG/5ML suspension 30 mL, 30 mL, Oral, Daily PRN ondansetron (ZOFRAN) injection 4 mg, 4 mg, Intravenous, Q6H PRN OBJECTIVE VITALS: BP (!) 133/58 Pulse 69 Temp 98 F (36.7 C) (Oral) Resp 18 Ht 5' (1.524 m) Wt 111 lb 9.6 oz (50.6 kg) SpO2 94% BMI 21.80 kg/m TEMPERATURE: Current - Temp: 98 F (36.7 C); Max - Temp Av.9 F (36.6 C) Min: 97 F (36.1 C) Max:99.5 F (37.5 C) RESPIRATIONS RANGE: Resp Av.5 Min: 16 Max: 18 PULSE RANGE: Pulse Av.5 Min: 63 Max: 80 BLOOD PRESSURE RANGE: Systolic (24hrs), Av , Min:121 , Max:167 ; Diastolic (24hrs), Av, Min:55, Max:75 PULSE OXIMETRY RANGE: SpO2 Av.9 % Min: 92 % Max: 100 % 24HR INTAKE/OUTPUT: Intake/Output Summary (Last 24 hours) at 02/16/2019 9570 Last data filed at 02/16/2019 0534 Gross per 24 hour Intake 2006 ml Output 325 ml Net 1681 ml GENERAL: Pleasant and NAD, sitting up in bed HEENT: NCAT, PERRLA, EOMI, Scleral anicteric. Oropharhynx clear with no erythema or exudate. Neck supple, no cervical LAD or thyromegaly. CV: RRR, NL S1/S2, no murmurs. Distal pulses palpable and equal b/l. LUNGS: CTA b/l. Normal palpation. No W/R/R. ABD: + BS, soft, mild RUQ tenderness to palpation and non-distended. No hepatosplenomegaly. No massfelt. No rebound or guarding. In abdominal binder EXT: No C/C/E. No muscle atrophy. Skin: No skin lesion or breakdown. Surgical incisions appearing heathy, no erythema noted. Lymph: No cervical or supraclavicular LAD. Musculoskeletal: Strength 5/5 in all exts. No joint tenderness or effusions in LEs. Neurologic: A&O x 3, CN II-XII grossly intact. DTR +2 symmetric in patella. Normal cerebellar fxn. Non-focal. Data Recent blood work and endoscopic study were reviewed with the patient. CBC: Recent Labs 02/15/19 0018 02/16/19 0101 WBC 7.4 22.3* RBC 3.88 3.84 HGB 12.8 12.6 HCT 36.6 37.3 MCV 94.4 97.2 MCH 32.9 32.8 MCHC 34.8 33.8 RDW 12.1 12.3 PLT 223 210 MPV 10.3 10.1 CMP: Recent Labs 02/14/19 0126 02/15/19 0018 02/16/19 0101 NA -- 141 140 K 3.8 4.0 4.2 CL -- 104 105 CO2 -- 28 25 BUN -- 10 13 CREATININE -- 0.87 0.74 GLUCOSE -- 110* 182* CALCIUM -- 9.6 9.4 PROT -- 7.0 6.7 LABALBU -- 3.7 3.9 BILITOT -- 0.6 0.5 ALKPHOS -- 94 83 AST -- 80* 100* ALT -- 76* 81* Endoscopic Review: ERCP by Dr. Smiley 02/15/2019 ENDOSCOPIC DIAGNOSIS: ERCP with pre cut & sphinterotomy and removal of debris Placement of CBD and PD stents RECOMMENDATIONS: Elective cholecystectomy. Follow up LFTs Monitor for pancreatitis Clear liquid diet and advance as tolerated ( defer to surgery ) Follow with primary / referring physician EGD for removal of both stents ( CBD / PD ) in 2-3 weeks ASSESSMENT AND PLAN Gallstone cholecystitis with choledocholithiasis and CBD dilatation on MRCP - no obstructive pattern in LFTs, no leukocytosis and afebrile, no signs of ascending cholangitis. Lipase is WNL. Recent cardiac stent for CAD - cardiology consulted Chronic antiplatelet therapy - Plavix, last dose likely Friday 02/10 PLAN - No further GI intervention at this time - Will need follow up EGD in 2-3 weeks for removal of stents - Currently on Protonix - Tolerating a general diet - Continue conservative management per primary team. The GI/Liver consult service will sign off. Please call if there are any questions, concerns or change of patient's GI condition. Thanks. * Mita Mcdonald RN - 02/15/2019 6:24 PM EST Report to nery. * Mita Mcdonald RN - 02/15/2019 9:00 AM EST Hearing aids returned to patient. * Tj Muniz MD - 02/15/2019 8:29 AM EST Hospitalist Progress Note 02/15/2019 8:29 AM [phone]: Please page me for patient care issues. [phone]: Please page [facility] night Hospitalist for any issues. Subjective: Admit Date: 02/11/2019 PCP: MITA MORTON DO Room#: [id number] Interval History: Patient seen and examined No new event overnight denies any abdominal pain No nausea, vomiting, fever spike lab work shows ALT 76, aspartate aminotransferase 80, bilirubin 0.6 potassium 4 had ERCP today and stent placment to CBD and pancreatitic duct per nursing staff Cholecystectomy planned for today Dietary Nutrition Supplements: Standard High Calorie Oral Supplement Diet NPO, After Midnight Exceptions are: Sips with Meds Patient Vitals for the past 96 hrs (Last 3 readings): Weight 02/15/19 0627 109 lb (49.4 kg) 02/14/19 0520 109 lb 8 oz (49.7 kg) 02/12/19 0450 113 lb 6.4 oz (51.4 kg) Medications: lactated ringers 75 mL/hr at 02/15/19 0017 sodium chloride flush 10 mL Intravenous 2 times per day potassium chloride 20 mEq Oral BID WC sodium chloride flush 3 mL Intravenous Q8H aspirin 81 mg Oral Daily atorvastatin 80 mg Oral Nightly dicyclomine 10 mg Oral TID AC metoprolol tartrate 25 mg Oral BID pantoprazole 40 mg Oral QAM AC sertraline 50 mg Oral Daily torsemide 20 mg Oral Daily sodium chloride flush 10 mL Intravenous 2 times per day piperacillin-tazobactam 3.375 g Intravenous Q8H LABS: CBC: Recent Labs 02/13/19 0051 02/15/19 0018 WBC 5.7 7.4 RBC 3.48* 3.88 HGB 11.6* 12.8 HCT 32.8* 36.6 MCV 94.4 94.4 RDW 12.3 12.1 PLT 196 223 BMP: Recent Labs 02/13/19 0051 02/14/19 0126 02/15/19 0018 NA 142 -- 141 K 3.4* 3.8 4.0 CL 108* -- 104 CO2 26 -- 28 BUN 6* -- 10 CREATININE 0.68 -- 0.87 GLUCOSE 93 -- 110* CALCIUM 9.0 -- 9.6 ANIONGAP 7 -- 8 LIVER PROFILE: Recent Labs 02/13/191 02/15/19 001 AST 62* 80* ALT 66 76* BILITOT 0.7 0.6 ALKPHOS 77 94 LABALBU 3.0* 3.7 PROT 5.8* 7.0 PT/INR: No results for input(s): PROTIME, INR in the last 72 hours. CARDIAC ENZYMES: No results for input(s): TROPONINI in the last 72 hours. Procalcitonin: Lab Results Component Value Date PROCAL <0.10 09/15/2018 Objective: Vitals: BP (!) 157/63 Pulse 64 Temp 97.4 F (36.3 C) (Temporal) Resp 20 Ht 5' (1.524 m) Wt109 lb (49.4 kg) SpO2 97% BMI 21.29 kg/m Pulse Ox: SpO2 Av.5 % Min: 97 % Max: 100 % Supplemental O2: General appearance: No apparent distress, HEENT: Eyes: No scleral icterus No pallor Oral: Tongue is semi-moist Cardiovascular: S1S2 heard, RRR Respiratory: Clear to auscultation bilaterally Abdomen: Soft, mild right UQ tenderness noted , non-distended with normal bowel sounds. Musculoskeletal: No obvious deformities seen Skin: No visible rashes or lesions. Neurology- no focal neurology,Awake alert Extremity- no peripheral edema both lower extremities Assessment Gallstone cholecystitis Choledocholelithiasis- s/p ERCP with stent placment to CBD and pancreatitic duct Coronary artery disease with stent placement to circumflex in July 2018 Hypertension Hyperlipidemia Gastroesophageal reflux disease/hiatal hernia Hypokalemia, replaced Malnutrition Plan Surgery team following-cholecystectomy planned for this evening cardiology recommendation noted Hold lovenox scd for DVT prophylaxis Continue current treatment Labs in am Patient was informed about all work up and treatment plan Discussed with nursing staff Advance Directive: Full Code Discharge planning: Tj Muniz MD Division of Hospitalist Medicine Inpatient Medical Services PAGER: [phone] * Carina Ovalles OT - 02/15/2019 7:10 AM EST Occupational Therapy OT Hold Note OT eval and treat orders received. Pt is scheduled for ERCP and cholecystectomy today. Will hold OTeval until after surgery. Carina Ovalles OTR/L * Tj Muniz MD - 02/14/2019 12:11 PM EST Hospitalist Progress Note 02/14/2019 12:11 PM [phone]: Please page me for patient care issues. [phone]: Please page [facility] night Hospitalist for any issues. Subjective: Admit Date: 02/11/2019 PCP: MITA MORTON DO Room#: [id number] Interval History: Patient seen and examined No new event overnight abdomen pain is much better No nausea, vomiting, fever spike No chest pain, shortness of breath, cough Potassium 3.8 plan for ERCP tomorrow Dietary Nutrition Supplements: Standard High Calorie Oral Supplement DIET LOW FAT; Diet NPO, After Midnight Exceptions are: Sips with Meds Patient Vitals for the past 96 hrs (Last 3 readings): Weight 02/14/19 0520 109 lb 8 oz (49.7 kg) 02/12/19 0450 113 lb 6.4 oz (51.4 kg) 02/11/19 0700 103 lb (46.7 kg) Medications: [START ON 02/15/2019] dextrose 5 % and 0.45 % NaCl [START ON 02/15/2019] lactated ringers sodium chloride flush 10 mL Intravenous 2 times per day indomethacin 100 mg Rectal Once potassium chloride 20 mEq Oral BID WC sodium chloride flush 3 mL Intravenous Q8H aspirin 81 mg Oral Daily atorvastatin 80 mg Oral Nightly dicyclomine 10 mg Oral TID AC metoprolol tartrate 25 mg Oral BID pantoprazole 40 mg Oral QAM AC sertraline 50 mg Oral Daily torsemide 20 mg Oral Daily sodium chloride flush 10 mL Intravenous 2 times per day piperacillin-tazobactam 3.375 g Intravenous Q8H LABS: CBC: Recent Labs 02/12/195302/13/1950 WBC 5.5 5.7 RBC 3.37* 3.48* HGB 11.1* 11.6* HCT 32.5* 32.8* MCV 96.5 94.4 RDW 12.4 12.3 PLT 163 196 BMP: Recent Labs 02/12/195302/13/195002/14/19 0126 NA 142 142 -- K 3.6 3.4* 3.8 CL 110* 108* -- CO2 27 26 -- BUN 11 6* -- CREATININE 0.78 0.68 -- GLUCOSE 84 93 -- CALCIUM 8.8 9.0 -- ANIONGAP 4 7 -- LIVER PROFILE: Recent Labs 02/12/195302/13/1950 AST 87* 62* ALT 81* 66 BILITOT 0.6 0.7 ALKPHOS 86 77 LABALBU 2.9* 3.0* PROT 5.5* 5.8* PT/INR: Recent Labs 02/12/1953 PROTIME 11.1 INR 1.1 CARDIAC ENZYMES: No results for input(s): TROPONINI in the last 72 hours. Procalcitonin: Lab Results Component Value Date PROCAL <0.10 09/15/2018 Objective: Vitals: BP 137/63 Pulse 60 Temp 98 F (36.7 C) (Temporal) Resp 18 Ht 5' (1.524 m) Wt 109 lb 8 oz (49.7 kg) SpO2 98% BMI 21.39 kg/m Pulse Ox: SpO2 Av.5 % Min: 98 % Max: 99 % Supplemental O2: General appearance: No apparent distress, HEENT: Eyes: No scleral icterus No pallor Oral: Tongue is semi-moist Cardiovascular: S1S2 heard, RRR Respiratory: Clear to auscultation bilaterally Abdomen: Soft, mild right UQ tenderness noted , non-distended with normal bowel sounds. Musculoskeletal: No obvious deformities seen Skin: No visible rashes or lesions. Neurology- no focal neurology,Awake alert Extremity- no peripheral edema both lower extremities Assessment Gallstone cholecystitis Choledocholelithiasis Coronary artery disease with stent placement to circumflex in July 2018 Hypertension Hyperlipidemia Gastroesophageal reflux disease/hiatal hernia Hypokalemia, replaced Malnutrition Plan Planned for ERCP tomorrow Surgery team following cardiology recommendation noted Hold lovenox scd for DVT prophylaxis Continue current treatment Patient was informed about all work up and treatment plan Discussed with nursing staff Advance Directive: Full Code Discharge planning: Tj Muniz MD Division of Hospitalist Medicine Inpatient Medical Services PAGER: [phone] * Lila Vance PA-C - 02/14/2019 10:02 AM EST Department of Internal Medicine Gastroenterology Attending Progress Note SUBJECTIVE: No acute events overnight. Endorses mild abdominal pain. Denies nausea and vomiting. Endorses having a brown bowel movement this AM. She is tolerating her diet. Medications Current Facility-Administered Medications: [START ON 02/15/2019] dextrose 5 % and 0.45 % sodium chloride infusion, , Intravenous, Continuous potassium chloride (KLOR-CON M) extended release tablet 20 mEq, 20 mEq, Oral, BID WC [COMPLETED] Saline lock IV, , , Continuous AND sodium chloride flush 0.9 % injection 3 mL, 3 mL, Intravenous, Q8H aspirin chewable tablet 81 mg, 81 mg, Oral, Daily atorvastatin (LIPITOR) tablet 80 mg, 80 mg, Oral, Nightly dicyclomine (BENTYL) capsule 10 mg, 10 mg, Oral, TID AC metoprolol tartrate (LOPRESSOR) tablet 25 mg, 25 mg, Oral, BID pantoprazole (PROTONIX) tablet 40 mg, 40 mg, Oral, QAM AC sertraline (ZOLOFT) tablet 50 mg, 50 mg, Oral, Daily torsemide (DEMADEX) tablet 20 mg, 20 mg, Oral, Daily sodium chloride flush 0.9 % injection 10 mL, 10 mL, Intravenous, 2 times per day sodium chloride flush 0.9 % injection 10 mL, 10 mL, Intravenous, PRN magnesium hydroxide (MILK OF MAGNESIA) 400 MG/5ML suspension 30 mL, 30 mL, Oral, Daily PRN ondansetron (ZOFRAN) injection 4 mg, 4 mg, Intravenous, Q6H PRN enoxaparin (LOVENOX) injection 40 mg, 40 mg, Subcutaneous, Daily morphine sulfate (PF) injection 2 mg, 2 mg, Intravenous, Q4H PRN piperacillin-tazobactam (ZOSYN) 3.375 g in dextrose 50 mL IVPB extended infusion (premix), 3.375 g,Intravenous, Q8H OBJECTIVE VITALS: BP 137/63 Pulse 60 Temp 98 F (36.7 C) (Temporal) Resp 18 Ht 5' (1.524 m) Wt 109 lb 8 oz (49.7 kg) SpO2 98% BMI 21.39 kg/m TEMPERATURE: Current - Temp: 98 F (36.7 C); Max - Temp Av F (36.7 C) Min: 98 F (36.7 C) Max: 98 F (36.7 C) RESPIRATIONS RANGE: Resp Av Min: 16 Max: 18 PULSE RANGE: Pulse Av.5 Min: 60 Max: 61 BLOOD PRESSURE RANGE: Systolic (24hrs), Av , Min:137 , Max:152 ; Diastolic (24hrs), Av, Min:63, Max:71 PULSE OXIMETRY RANGE: SpO2 Av.5 % Min: 98 % Max: 99 % 24HR INTAKE/OUTPUT: Intake/Output Summary (Last 24 hours) at 02/14/2019 1003 Last data filed at 02/14/2019 0525 Gross per 24 hour Intake 2773 ml Output 500 ml Net 2273 ml GENERAL: Pleasant and NAD, reading in bed HEENT: NCAT, PERRLA, EOMI, Scleral anicteric. Oropharhynx clear with no erythema or exudate. Neck supple, no cervical LAD or thyromegaly. CV: RRR, NL S1/S2, no murmurs. Distal pulses palpable and equal b/l. LUNGS: CTA b/l. Normal palpation. No W/R/R. ABD: + BS, soft, non-tender and non-distended. No hepatosplenomegaly. No mass felt. No rebound or guarding. EXT: No C/C/E. No muscle atrophy. Skin: No skin lesion or breakdown. Lymph: No cervical or supraclavicular LAD. Musculoskeletal: Strength 5/5 in all exts. No joint tenderness or effusions in LEs. Neurologic: A&O x 3 with mild confusion, CN II-XII grossly intact. DTR +2 symmetric in patella.Normal cerebellar fxn.Non-focal. Data Recent blood work and radiologic study were reviewed with the patient. CBC: Recent Labs 02/12/195302/13/1950 WBC 5.5 5.7 RBC 3.37* 3.48* HGB 11.1* 11.6* HCT 32.5* 32.8* MCV 96.5 94.4 MCH 33.0 33.3 MCHC 34.2 35.2 RDW 12.4 12.3 PLT 163 196 MPV 10.3 10.1 CMP: Recent Labs 02/12/19 0054 02/13/19 00502/14/19 0126 NA 142 142 -- K 3.6 3.4* 3.8 CL 110* 108* -- CO2 27 26 -- BUN 11 6* -- CREATININE 0.78 0.68 -- GLUCOSE 84 93 -- CALCIUM 8.8 9.0 -- PROT 5.5* 5.8* -- LABALBU 2.9* 3.0* -- BILITOT 0.6 0.7 -- ALKPHOS 86 77 -- AST 87* 62* -- ALT 81* 66 -- PT/INR: Recent Labs 02/11/19 1100 02/12/1953 INR 1.0 1.1 Radiology Review: MRCP 02/11/2019 IMPRESSION:. Cholelithiasis with marked gallbladder distention and small amount of pericholecystic fluid. Choledocholithiasis with likely 3-4 subcentimeter calculi in the common bile duct. Mild extrahepatic biliary ductal dilation, similar to the prior study. Very mild intrahepatic biliary ductal dilation, new since the prior study. Chronic findings including moderate to large hiatal hernia. ASSESSMENT AND PLAN Gallstone cholecystitis with choledocholithiasis and CBD dilatation on MRCP - no obstructive pattern in LFTs, no leukocytosis and afebrile, no signs of ascending cholangitis. Lipase is WNL. Recent cardiac stent for CAD - cardiology consulted Chronic antiplatelet therapy - Plavix, last dose likely Friday 02/10 PLAN - Will plan for ERCP tomorrow 02/[address] Smiley - Will need to NPO at midnight and please hold anticoagulation AM of 02/15 - Timing of lap divya per primary surgery team. - Currently on IV Zosyn - Currently on Protonix - Continue conservative management per primary team. * Iesha Loya PT - 02/13/2019 5:21 PM EST Physical Therapy Facility/Department: [facility] MED SURG Initial Assessment NAME: Prema Villalpando : 1940 Date of Service: 02/13/2019 Discharge Recommendations: Home with assist PRN, Home with Home health PT(She is currently doing well, but will likely need more assist post surgery. ) PT Equipment Recommendations Equipment Needed: No Other: has a walker and a cane at home, is not currently using it. Assessment Body structures, Functions, Activity limitations: Decreased functional mobility ;Decreased strength;Decreased cognition;Decreased endurance Assessment: Patient is moving well today. She did slow down as she fatigued. She is to have a cholecystectomy on Wed02/15/2019. Will need a reeval after the surgery. Treatment Diagnosis: decreased functional mobility and independence. Prognosis: Good Decision Making: Low Complexity PT Education: Goals;PT Role;General Safety REQUIRES PT FOLLOW UP: Yes Activity Tolerance Activity Tolerance: Patient Tolerated treatment well;Patient limited by pain Patient Diagnosis(es): The primary encounter diagnosis was Calculus of bile duct without cholecystitis with obstruction. A diagnosis of Dilation of biliary tract was also pertinent to this visit. has a past medical history of Anemia, H/O heart artery stent, History of blood transfusion, Hx of blood clots, Hyperlipidemia, and Hypertension. has a past surgical history that includes Throat surgery (2014); Colonoscopy; eye surgery (Bilateral); Upper gastrointestinal endoscopy (08/08/2018); and Colonoscopy (09/21/2018). Restrictions Restrictions/Precautions Restrictions/Precautions: Modified Diet Required Braces or Orthoses?: No Position Activity Restriction Other position/activity restrictions: Pt. is a NO INFO Please do not give out info. Vision/Hearing Vision: Within Functional Limits Hearing: Exceptions to WFL Hearing Exceptions: Bilateral hearing aid Subjective General Chart Reviewed: Yes Patient assessed for rehabilitation services?: Yes Response To Previous Treatment: Not applicable Family / Caregiver Present: Yes(daughter) Diagnosis: cholecystitis Follows Commands: Within Functional Limits Other (Comment): She is to have a cholecystectomy on Wednesday02/15/2019 Subjective Subjective: Agreeable to ambulate in the kraft with PT. Pain Screening Patient Currently in Pain: (intermittant pain) Vital Signs Patient Currently in Pain: (intermittant pain) Pre Treatment Pain Screening Intervention List: Patient able to continue with treatment Orientation Orientation Overall Orientation Status: Within Functional Limits(Relies on her daughter to chime in with details.) Social/Functional History Social/Functional History Lives With: Alone Type of Home: ([employer] is on daughter's property) Home Layout: One level Home Access: Stairs to enter with rails Bathroom Shower/Tub: Tub/Shower unit Bathroom Toilet: Standard Bathroom Equipment: Hand-held shower Bathroom Accessibility: Accessible Home Equipment: Rolling walker Receives Help From: Family ADL Assistance: Independent Homemaking Assistance: Independent Homemaking Responsibilities: Yes Ambulation Assistance: Independent Transfer Assistance: Independent Active Leasing Agent: Yes Mode of Transportation: Car Occupation: Retired Cognition Objective Observation/Palpation Posture: Good AROM RLE (degrees) RLE AROM: WFL AROM LLE (degrees) LLE AROM : WFL Strength RLE Comment: 4/5 Strength LLE Comment: 4/5 Strength Other Other: core strength is fair Tone RLE RLE Tone: Normotonic Tone LLE LLE Tone: Normotonic Motor Control Gross Motor?: WFL Coordination Rapid Alternating Movements: Normal Sensation Overall Sensation Status: WNL Bed mobility Bridging: Independent Rolling to Left: Modified independent Rolling to Right: Modified independent Supine to Sit: Modified independent Scooting: Independent Transfers Sit to Stand: Modified independent Stand to sit: Modified independent Bed to Chair: Modified independent Ambulation Ambulation?: Yes More Ambulation?: No Ambulation 1 Surface: level tile Device: No Device Assistance: Modified Independent Gait Deviations: Slow Jimmy;Decreased step length Distance: 100' x 2 Stairs/Curb Stairs?: No Balance Posture: Good Sitting - Static: Good Sitting - Dynamic: Good Standing - Static: Good;- Standing - Dynamic: Good;- Plan Plan Times per week: 5 Plan weeks: 1 Current Treatment Recommendations: Gait Training, Stair training, Balance Training, Endurance Training Safety Devices Type of devices: Call light within reach, Gait belt, Nurse notified Restraints Initially in place: No G-Code OutComes Score AM-PAC Score Goals Short term goals Time Frame for Short term goals: 10 days Short term goal 1: bed mobility indep. Short term goal 2: transfers modif. indep. Short term goal 3: gait x 150' modif. indep. Short term goal 4: steps x 3 with single railing Patient Goals Patient goals : to get better and go home. Therapy Time Individual Concurrent Group Co-treatment Time In 1620 Time Out 1641 Minutes 21 Timed Code Treatment Minutes: (low eval) Iesha Loya PT * Yaz De La Torre, MS, RD, LD - 02/13/2019 12:42 PM EST Nutrition Assessment Type and Reason for Visit: Initial, Positive Nutrition Screen Nutrition Recommendations: PATIENT MEETS THE AND/ASPEN CRITERIA FOR SEVERE MALNUTRITION 1. Continue with full liquid diet - encouraged patient to order meals from full liquid menu 2. Per MNT provide Ensure Clear (240 sean/8 grams protein) now as well as provide Ensure Enlive (350cal/20 grams protein) with lunch and dinner 3. Encouraged small frequent meals and slow diet progression 4. Suggest document % meals consumed in nursing flow sheets 5. RD continue to monitor overall nutritional status and follow up weekly Nutrition Assessment: Patient admitted with cholecystitis. Per notes, presents with worsening abdominal pain and weight loss going on for months - she had 2 stents placed in her heart 07/27 and has lost about 35 pounds since then due to intermittent abdominal pain - she was found to have gallstones in September but surgery not done due to recent stents - she had CT scan yesterday showing possible cholecystitis and RUQ showing possible choledocholithiasis. Patient consuming clear liquid diet (broth,juice) during RD visit. Reports she is tolerating it well. Prior to admission, patient with decreased appetite, pain and lost her taste for food. Patient states I guess it was gall stones causing this Patient stated that she was weighed via standing scale at 113# and has gained some weight back. Patient reports that her lowest weight was 103#. Encouraged patient to trial full liquid diet and reviewed liquid menu with patient. Patient willing to have Ensure clear right now and switch to Ensure Enlive. Malnutrition Assessment: Malnutrition Status: Meets the criteria for severe malnutrition Context: Chronic illness Findings of the 6 clinical characteristics of malnutrition (Minimum of 2 out of 6 clinical characteristics is required to make the diagnosis of moderate or severe Protein Calorie Malnutrition based on AND/ASPEN Guidelines): 1. Energy Intake-Less than or equal to 75% of estimated energy requirement, Greater than or equal to 7 days 2. Weight Loss-10% loss or greater, in 6 months Nutrition Risk Level: High Nutrient Needs: Estimated Daily Total Kcal: 7163-6797 (25-28) Estimated Daily Protein (g): 51-61 (1.0-1.2) Estimated Daily Total Fluid (ml/day): per MD Nutrition Diagnosis: Problem: Severe malnutrition, In context of chronic illness Etiology: related to Alteration in GI function ? Signs and symptoms: as evidenced by Diet history of poor intake, Weight loss greater than or equal to 10% in 6 months Objective Information: Nutrition-Focused Physical Findings: +bowel sounds; no edema noted; Chaim 19; +I&O Wound Type: None Current Nutrition Therapies: Oral Diet Orders: Full Liquid Oral Diet intake: 51-75% Oral Nutrition Supplement (ONS) Orders: None ONS intake: Anthropometric Measures: Ht: 5' (152.4 cm) Current Body Wt: 113 lb (51.3 kg)(02/12 standing scale) Admission Body Wt: 103 lb (46.7 kg)(stated) % Weight Change: , 18.7% weight loss in 6 months: (08/13/18) 139# --> (02/12/19) 113# [place] Body Wt: 100 lb (45.4 kg), BMI Classification: BMI 18.5 - 24.9 Normal Weight Nutrition Interventions: Continue current diet, Start ONS Continued Inpatient Monitoring Nutrition Evaluation: Evaluation: Goals set Goals: Patient consume >50% meals/ONS and tolerate without GI distress Monitoring: Nutrition Progression, Meal Intake, Supplement Intake, Diet Tolerance, Skin Integrity, I&O, Weight, Pertinent Labs, Nausea or Vomiting, Diarrhea, Constipation, Monitor Bowel Function Contact Number: pager [phone] * Lila Vance PA-C - 02/13/2019 10:50 AM EST Department of Internal Medicine Gastroenterology Attending Progress Note SUBJECTIVE: Patient endorses mild RUQ pain this AM. Denies any nausea or vomiting. Endorses one brown bowel movement this AM with a few drops of blood. Otherwise no complaints, tolerating her diet. Medications Current Facility-Administered Medications: dextrose 5 % and 0.45 % NaCl with KCl 20 mEq infusion, ,Intravenous, Continuous potassium chloride (KLOR-CON M) extended release tablet 20 mEq, 20 mEq, Oral, BID WC [COMPLETED] Saline lock IV, , , Continuous AND sodium chloride flush 0.9 % injection 3 mL, 3 mL, Intravenous, Q8H aspirin chewable tablet 81 mg, 81 mg, Oral, Daily atorvastatin (LIPITOR) tablet 80 mg, 80 mg, Oral, Nightly dicyclomine (BENTYL) capsule 10 mg, 10 mg, Oral, TID AC metoprolol tartrate (LOPRESSOR) tablet 25 mg, 25 mg, Oral, BID pantoprazole (PROTONIX) tablet 40 mg, 40 mg, Oral, QAM AC sertraline (ZOLOFT) tablet 50 mg, 50 mg, Oral, Daily torsemide (DEMADEX) tablet 20 mg, 20 mg, Oral, Daily sodium chloride flush 0.9 % injection 10 mL, 10 mL, Intravenous, 2 times per day sodium chloride flush 0.9 % injection 10 mL, 10 mL, Intravenous, PRN magnesium hydroxide (MILK OF MAGNESIA) 400 MG/5ML suspension 30 mL, 30 mL, Oral, Daily PRN ondansetron (ZOFRAN) injection 4 mg, 4 mg, Intravenous, Q6H PRN enoxaparin (LOVENOX) injection 40 mg, 40 mg, Subcutaneous, Daily morphine sulfate (PF) injection 2 mg, 2 mg, Intravenous, Q4H PRN piperacillin-tazobactam (ZOSYN) 3.375 g in dextrose 50 mL IVPB extended infusion (premix), 3.375 g,Intravenous, Q8H OBJECTIVE VITALS: BP (!) 157/75 Pulse 70 Temp 97.4 F (36.3 C) (Oral) Resp 15 Ht 5' (1.524 m) Wt 113lb 6.4 oz (51.4 kg) SpO2 99% BMI 22.15 kg/m TEMPERATURE: Current - Temp: 97.4 F (36.3 C); Max - Temp Av.8 F (36.6 C) Min: 97.4 F (36.3 C) Max: 98.1 F (36.7 C) RESPIRATIONS RANGE: Resp Av Min: 15 Max: 17 PULSE RANGE: Pulse Av Min: 70 Max: 86 BLOOD PRESSURE RANGE: Systolic (24hrs), Av , Min:122 , Max:157 ; Diastolic (24hrs), Av, Min:75, Max:78 PULSE OXIMETRY RANGE: SpO2 Av.5 % Min: 98 % Max: 99 % 24HR INTAKE/OUTPUT: Intake/Output Summary (Last 24 hours) at 02/13/2019 1051 Last data filed at 02/13/2019 0453 Gross per 24 hour Intake 3334 ml Output 1500 ml Net 1834 ml GENERAL: Pleasant and NAD, resting in bed HEENT: NCAT, PERRLA, EOMI, Scleral anicteric. Oropharhynx clear with no erythema or exudate. Neck supple, no cervical LAD or thyromegaly. CV: RRR, NL S1/S2, no murmurs. Distal pulses palpable and equal b/l. LUNGS: CTA b/l. Normal palpation. No W/R/R. ABD: + BS, soft, mild RUQ tenderness to palpation and non-distended. No hepatosplenomegaly. No massfelt. No rebound or guarding. EXT: No C/C/E. No muscle atrophy. Skin: No skin lesion or breakdown. Lymph: No cervical or supraclavicular LAD. Musculoskeletal: Strength 5/5 in all exts. No joint tenderness or effusions in LEs. Neurologic: A&O x 3 although mildly confused, CN II-XII grossly intact. DTR +2 symmetric in patella. Normal cerebellar fxn. Non-focal. Data Recent blood work was reviewed with the patient. CBC: Recent Labs 02/11/1972502/12/195302/[birth year]/1950 WBC 9.9 5.5 5.7 RBC 3.60* 3.37* 3.48* HGB 11.8 11.1* 11.6* HCT 34.8* 32.5* 32.8* MCV 96.7 96.5 94.4 MCH 32.7 33.0 33.3 MCHC 33.9 34.2 35.2 RDW 12.4 12.4 12.3 PLT 193 163 196 MPV 10.0 10.3 10.1 CMP: Recent Labs 02/11/1972502/12/195302/13/1948 NA 142 142 142 K 3.7 3.6 3.4* CL 111* 110* 108* CO2 27 27 26 BUN 15 11 6* CREATININE 0.72 0.78 0.68 GLUCOSE 120* 84 93 CALCIUM 8.9 8.8 9.0 PROT 6.2* 5.5* 5.8* LABALBU 3.3* 2.9* 3.0* BILITOT 0.5 0.6 0.7 ALKPHOS 83 86 77 AST 76* 87* 62* ALT 64 81* 66 ASSESSMENT AND PLAN Gallstone cholecystitis with choledocholithiasis and CBD dilatation on MRCP - no obstructive pattern in LFTs, no leukocytosis and afebrile, no signs of ascending cholangitis. Lipase is WNL. Recent cardiac stent for CAD - cardiology consulted Chronic antiplatelet therapy - Plavix, last dose likely Friday 02/10 PLAN - Will plan ERCP for retained choledocholithiasis after Plavix is held for at least 5 days, given likely sphincterotomy. (Per cardiology, okay to hold Plavix.) - Timing of lap divya with or without IOC per primary surgery team. - Currently on IV Zosyn - Currently on Protonix - Continue conservative management per primary team. * Tj Muniz MD - 02/13/2019 8:42 AM EST Hospitalist Progress Note 02/13/2019 8:42 AM [phone]: Please page me for patient care issues. [phone]: Please page [facility] night Hospitalist for any issues. Subjective: Admit Date: 02/11/2019 PCP: MITA MORTON, Room#: 5125/127528 Interval History: Patient seen and examined No new event overnight 78-year-old female past medical history of STEMI in August 2018, status post stent placement to circumflex, hypertension, hyperlipidemia, gastroesophageal reflux disease/hiatal hernia, echo from July 2018 reviewed showed ejection fraction 67% admitted with abdominal pain, weight loss of 35 pounds since July 2018. No fever, chills, chest pain, shortness of breath. Patient had cholelithiasis in September but surgery not done due to Coronary stent placement in July 2018 Workup during this admission showed potassium 3.4, creatinine 0.68 and lipase 164 hemoglobin 11.6 right upper quadrant ultrasonogram consistent with cholelithiasis, suspected choledocholithiasis MRCP- Cholelithiasis with marked gallbladder distention and small amount of pericholecystic fluid. Choledocholithiasis with likely 3-4 subcentimeter calculi in the common bile duct. Mild extrahepatic biliary ductal dilation, similar to the prior study. Very mild intrahepatic biliary ductal dilation, new since the prior study. Chronic findings including moderate to large hiatal hernia Seen by cardiology team, recommendation noted, Plavix on hold seen by gastrointestinal team, recommended ERCP for retained choledocholithiasis after Plavix is held for at least 5 days. DIET FULL LIQUID; Patient Vitals for the past 96 hrs (Last 3 readings): Weight 02/12/19 0450 113 lb 6.4 oz (51.4 kg) 02/11/19 0700 103 lb (46.7 kg) Medications: dextrose 5% and 0.45% NaCl with KCl 20 mEq 75 mL/hr at 02/13/19 0837 potassium chloride 20 mEq Oral BID WC sodium chloride flush 3 mL Intravenous Q8H aspirin 81 mg Oral Daily atorvastatin 80 mg Oral Nightly dicyclomine 10 mg Oral TID AC metoprolol tartrate 25 mg Oral BID pantoprazole 40 mg Oral QAM AC sertraline 50 mg Oral Daily torsemide 20 mg Oral Daily sodium chloride flush 10 mL Intravenous 2 times per day enoxaparin 40 mg Subcutaneous Daily piperacillin-tazobactam 3.375 g Intravenous Q8H LABS: CBC: Recent Labs 02/11/19 0702/12/194 02/13/19 005 WBC 9.9 5.5 5.7 RBC 3.60* 3.37* 3.48* HGB 11.8 11.1* 11.6* HCT 34.8* 32.5* 32.8* MCV 96.7 96.5 94.4 RDW 12.4 12.4 12.3 PLT 193 163 196 BMP: Recent Labs 02/11/19 0702/12/195302/13/19 005 NA 142 142 142 K 3.7 3.6 3.4* CL 111* 110* 108* CO2 27 27 26 BUN 15 11 6* CREATININE 0.72 0.78 0.68 GLUCOSE 120* 84 93 CALCIUM 8.9 8.8 9.0 ANIONGAP 5 4 7 LIVER PROFILE: Recent Labs 02/11/19 0702/12/195302/13/19 005 AST 76* 87* 62* ALT 64 81* 66 BILITOT 0.5 0.6 0.7 ALKPHOS 83 86 77 LABALBU 3.3* 2.9* 3.0* PROT 6.2* 5.5* 5.8* PT/INR: Recent Labs 02/11/19 1100 02/12/1951 PROTIME 11.0 11.1 INR 1.0 1.1 CARDIAC ENZYMES: Recent Labs 02/11/19725 TROPONINI <0.012 Procalcitonin: Lab Results Component Value Date PROCAL <0.10 09/15/2018 Objective: Vitals: BP (!) 157/75 Pulse 70 Temp 97.4 F (36.3 C) (Oral) Resp 15 Ht 5' (1.524 m) Wt 113lb 6.4 oz (51.4 kg) SpO2 99% BMI 22.15 kg/m Pulse Ox: SpO2 Av.5 % Min: 98 % Max: 99 % Supplemental O2: General appearance: No apparent distress, HEENT: Eyes: No scleral icterus No pallor Oral: Tongue is semi-moist Cardiovascular: S1S2 heard, RRR Respiratory: Clear to auscultation bilaterally Abdomen: Soft, right UQ tenderness noted , non-distended with normal bowel sounds. Musculoskeletal: No obvious deformities seen Skin: No visible rashes or lesions. Neurology- no focal neurology,Awake alert Extremity- no peripheral edema both lower extremities Assessment Gallstone cholecystitis Choledocholelithiasis Coronary artery disease with stent placement to circumflex in July 2018 Hypertension Hyperlipidemia Gastroesophageal reflux disease/hiatal hernia Hypokalemia Plan Replace potassium gastrointestinal/surgery team following cardiology recommendation noted On DVT/ GI prophylaxis Labs ordered for AM Patient was informed about all work up and treatment plan Discussed with nursing staff Advance Directive: Full Code Discharge planning: Tj Muniz MD Division of Hospitalist Medicine Inpatient Medical Services PAGER: [phone] * Sonny Peres MD - 02/12/2019 10:47 AM EST Hospitalist Progress Note 02/12/2019 10:48 AM Subjective: Admit Date: 02/11/2019 PCP: MITA MORTON DO Interval History: No overnight issues. Pt denies any abdominal pain DIET FULL LIQUID; Date 02/12/19 0000 - 02/12/19 2359 Shift [id number] 2054-0988 [id number] 24 Hour Total INTAKE P.O.(mL/kg/hr) 0(0) 0 I.V.(mL/kg) 1285(25) 1285(25) IV Piggyback(mL/kg) 100(1.9) 100(1.9) Shift Total(mL/kg) 1385(26.9) 1385(26.9) OUTPUT Urine(mL/kg/hr) 450(1.1) 450 Shift Total(mL/kg) 450(8.7) 450(8.7) Weight (kg) 51.4 51.4 51.4 51.4 Patient Vitals for the past 96 hrs (Last 3 readings): Weight 02/12/19 0450 113 lb 6.4 oz (51.4 kg) 02/11/19 0700 103 lb (46.7 kg) Medications: lactated ringers 100 mL/hr at 02/11/19 0953 sodium chloride flush 3 mL Intravenous Q8H aspirin 81 mg Oral Daily atorvastatin 80 mg Oral Nightly dicyclomine 10 mg Oral TID AC metoprolol tartrate 25 mg Oral BID pantoprazole 40 mg Oral QAM AC potassium chloride 10 mEq Oral BID WC sertraline 50 mg Oral Daily torsemide 20 mg Oral Daily sodium chloride flush 10 mL Intravenous 2 times per day enoxaparin 40 mg Subcutaneous Daily piperacillin-tazobactam 3.375 g Intravenous Q8H Recent Labs 02/11/19 0726 02/12/19 0054 WBC 9.9 5.5 HGB 11.8 11.1* PLT 193 163 Recent Labs 02/11/19 0726 02/12/19 0054 NA 142 142 K 3.7 3.6 CL 111* 110* CO2 27 27 BUN 15 11 CREATININE 0.72 0.78 GLUCOSE 120* 84 Recent Labs 02/11/19 0726 02/12/19 0054 AST 76* 87* ALT 64 81* BILITOT 0.5 0.6 ALKPHOS 83 86 Lab Results Component Value Date TRIG 99 08/05/2018 HDL 25 08/05/2018 CHOL 94 08/05/2018 Lab Results Component Value Date PHART 7.464 08/05/2018 PO2ART 113.3 08/05/2018 [id number] 32.7 08/05/2018 Recent Labs 02/11/19 1100 02/12/19 0054 INR 1.0 1.1 Recent Labs 02/11/19725 TROPONINI <0.012 No results for input(s): DDIMER in the last 72 hours. No components found for: HGBA1C Lab Results Component Value Date TSH 2.286 08/06/2018 Urine Culture: Results for orders placed or performed during the hospital encounter of 09/15/18 URINE CULTURE Result Value Ref Range Urine Culture, Routine Normal urogenital nayeli present. (A) Urine Culture, Routine Group B streptococcus (A) Urine Culture, Routine 10,000-50,000 CFU/ml Susceptibility testing not routinely performed. Group B streptococcus is universally susceptible to beta-lactam antibiotics and vancomycin. If patient is beta-lactam allergic, please call [facility] Microbiology lab ([phone]) within 2 days to request susceptibility testing. If isolated from urine, Group B strep may indicate colonization or infection. Objective: Vitals: BP 123/65 Pulse 75 Temp 98.4 F (36.9 C) (Oral) Resp 18 Ht 5' (1.524 m) Wt 113 lb 6.4 oz (51.4 kg) SpO2 97% BMI 22.15 kg/m Pulse Ox: SpO2 Av.5 % Min: 96 % Max: 97 % Supplemental O2: General appearance: alert and cooperative with exam Lungs: clear to auscultation bilaterally Heart: regular rate and rhythm, S1, S2 normal, no murmur, click, rub or gallop Abdomen: soft, non-tender; bowel sounds normal; no masses, no organomegaly Extremities: extremities normal, atraumatic, no cyanosis or edema Neurologic: No obvious focal neurologic deficits. Assessment Principal Problem: Cholecystitis Active Problems: Abdominal pain Paroxysmal atrial fibrillation (HCC) Choledocholithiasis Resolved Problems: * No resolved hospital problems. * Diagnosis Date Anemia H/O heart artery stent 08/04/2018 History of blood transfusion Hx of blood clots Hyperlipidemia Hypertension Plan Acute cholecystitis and choledocholithiasis - pt needs ERCP but needs to wait for plavix to wash out - likely not until Wednesday - LFT's stable - cont empiric zosyn for now - pt without pain - likely lap divya end of next week - ok to advance diet per GI Hx of CAD s/p stents 6 months ago - ok to hold plavix per cardio - needs to remain on baby ASA HTN - well controlled -am labs -increase activity Advance Directive: Full Code Discharge planning: TBD Sonny Peres MD [facility] Hospitalist * Devan Fitzgerald MD - 02/11/2019 5:14 PM EST Findings of MRCP reviewed with patient. I discussed these results with the GI service as well, now being consulted. The evidence of choledocholithiasis complicates her case in that she will require an ERCP prior to operative intervention for cholecystectomy. The ERCP will need to be delayed as she last took plavix yesterday (like to usually wait ~5 days to allow plavix to wash from system). If the patient were to develop acute cholangitis or clinical decompensation, certainly proximal decompression would be indicated; however, for now, we will keep her NPO tonight, await plavix wash-out, proceed with ERCP taking into account GI recs (to follow) and then thereafter proceed with laparoscopic possible open cholecystectomy. This plan was thoroughly discussed with the patient as well as with the daughter, Patrizia (over the phone). Questions were addressed and answered. Surgery tomorrow has been cancelled. Discussed with Dr. Ash. Please call with any ongoing questions or concerns. -2 Department of General Surgery #[id number] [facility] Work Phone: [phone] Hospital Discharge instructions* Discharge Instr - Activity* Tj Muniz MD - 02/13/2019 8:37 AM EST As tolerated * Discharge Instr - Diet* Tj Muniz MD - 02/13/2019 8:37 AM EST ? Good nutrition is important when healing from an illness, injury, or surgery. Follow any nutrition recommendations given to you during your hospital stay. ? If you were given an oral nutrition supplement while in the hospital, continue to take this supplement at home. You can take it with meals, in-between meals, and/or before bedtime. These supplements can be purchased at most local grocery stores, pharmacies, and chain super-stores. ? If you have any questions about your diet or nutrition, call the hospital and ask for the dietitian. Cardiac diet * Attachments The following attachments cannot be sent through Care Everywhere. * Cholecystectomy: Post-op ([place]) [facility] Work Phone: Evaluation note* Diagnosis Left thyroid nodule Nontoxic uninodular goiter documented in this encounter [facility] Work Phone: Evaluation note* Diagnosis Abnormal results of liver function studies Nonspecific abnormal results of liver function study documented in this encounter [facility] Work Phone: Evaluation note* Diagnosis Cholecystitis- Primary Cholecystitis, unspecified Dilation of biliary tract Other specified disorders of biliary tract Calculus of bile duct without cholecystitis with obstruction Choledocholithiasis Calculus of bile duct without mention of cholecystitis or obstruction Abdominal pain Abdominal pain, unspecified site Paroxysmal atrial fibrillation (HCC) Atrial fibrillation Calculus of gallbladder with acute cholecystitis and obstruction Encounter for long-term (current) use of antiplatelets/antithrombotics H/O heart artery stent Postsurgical percutaneous transluminal coronary angioplasty status Severe malnutrition (HCC) Nutritional marasmus documented in this encounter [facility] Work Phone: Evaluation noteNo assessment information available [facility] Work Phone: Evaluation note* Diagnosis 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) documented in this encounter [facility] Work Phone: Evaluation note* Diagnosis Onset Date Resolution Status Dysphagia acute History of esophageal stricture acute History of hypertension acut e [facility] Work Phone: Evaluation note* Diagnosis Other specified symptoms and signs involving the circulatory and respiratory systems [facility]* Diagnosis Anemia- Primary Unspecified anemia Anemia Unspecified anemia Hyponatremia Hyposmolality and/or hyponatremia Hepatitis Unspecified hepatitis [facility]* Diagnosis Coronary artery disease involving [place] coronary artery of [place] heart without angina pectoris- Primary Persistent atrial fibrillation (HCC) Atrial fibrillation Mixed hyperlipidemia [facility]* Diagnosis Other specified symptoms and signs involving the circulatory and respiratory systems- Primary Other specified symptoms and signs involving the circulatory and respiratory systems [facility]* Diagnosis Other specified abnormal findings of blood chemistry documented [facility] note* Diagnosis Other persistent atrial fibrillation (HCC)- Primary [facility]* Diagnosis Hyperlipidemia, unspecified- Primary [facility]* Diagnosis Onset Date Resolution Status Dysphagia acute Alzheimer's dementia chronic [facility] Work Phone: Evaluation note* Diagnosis Injury of head, initial encounter- Primary [facility] Dorsalgia, unspecified- Primary Unspecified urinary incontinence documented in this encounter [facility] note* Diagnosis Coronary artery disease involving [place] coronary artery of [place] heart without angina pectoris- Primary Persistent atrial fibrillation (HCC) Atrial fibrillation Mixed hyperlipidemia Vascular dementia, unspecified dementia severity, unspecified whether behavioral, psychotic, or mood disturbance or anxiety (HCC) documented in this encounter [facility] note* Diagnosis Other specified abnormal findings of blood chemistry documented in this encounter [facility] note* Diagnosis Other specified diseases of liver [facility] Diagnosis Dysphagia Esophageal obstruction Stricture and stenosis of esophagus Dementia (HCC) Other persistent mental disorders due to conditions classified elsewhere Stented coronary artery Postsurgical percutaneous transluminal coronary angioplasty status documented in this encounter [facility] note* Diagnosis Eosinophilic esophagitis- Primary documented in this encounter [facility] note* Diagnosis Eosinophilic esophagitis- Primary documented in this encounter [facility] note* Diagnosis Eosinophilic esophagitis- Primary documented in this encounter [facility] note* Diagnosis Eosinophilic esophagitis- Primary documented in this encounter [facility] note* Diagnosis Other specified abnormal findings of blood chemistry- Primary Other specified abnormal findings of blood chemistry documented in this encounter [facility] note* Diagnosis Other specified abnormal findings of blood chemistry- Primary Other specified abnormal findings of blood chemistry documented in this encounter [facility] note* Diagnosis Other specified diseases of liver- Primary Other specified diseases of liver documented in this encounter [facility] Discharge instructions* Instructions* Juanis Maldonado V., RN - 03/07/2019 Upper GI Endoscopy: What to expect at home ACTIVITY: DO NOT DRIVE, OPERATE MACHINERY, OR DRINK ANY ALCOHOL TODAY. Avoid making critical decisions, signing legal documents, or performing any activity that requires alertness for the rest of the day. You may be bloated or have gas pains since air was introduced into the stomach for the procedure. You may need to pass the gas throughout the day. You may experience a mild sore throat. You may use an [id number] chloraseptic spray, gargle with warm salt water, or use throat lozenges. Notify your physician if this feeling lasts more than 48 hours. Rest the remainder of the day. You may resume normal activity tomorrow. You may return to work tomorrow. DIET: You may resume a normal diet unless notified or recommended by your physician. You may be eager to eat a large meal after fasting, but it is a good idea to start with light mealsand ease into solid foods the first day. (*) If your stomach is upset, try clear liquids and bland, low-fat foods like plain toast or rice. Drink plenty of fluids for the first 24 hours (unless your physician states otherwise). MEDICATION: Resume your normal home medications unless notified or recommended by your physician. If you take blood thinners (such as Coumadin, Eliquis, Plavix, Aspirin, etc.) or anti-inflammatory medications (Advil, Motrin, Aleve, etc.), ask your physician when you may resume these medications. FOLLOW-UP APPOINTMENT: Follow up with or call your physician as needed. When to call for help: Call your doctor IMMEDIATELY or seek medical care if you experience: ? Severe pain or vomiting ? Coughing up more than a teaspoon of blood ? You pass a large amount of tar-like stools ? Your belly is swollen and firm with severe pain ? A fever greater than 101 degrees ? Redness or swelling of arm from the IV site for more than 48 hours ? Sudden onset of chest pain or shortness of breath ? If you become extremely dizzy or pass out (lose consciousness) IF YOU ARE UNABLE TO REACH YOUR PHYSICIAN GO TO NEAREST EMERGENCY DEPARTMENT Hiatal Hernia Discharge Instructions You must carefully read the Consumer Information Use and Disclaimer below in order to understand and correctly use this information About this topic Hiatal hernia is when part of the stomach is up in the chest. It sticks up through the muscle that divides the chest and abdomen. This muscle is called the diaphragm. It keeps stomach acid from goingback up the swallowing tube. The swallowing tube is called the esophagus. Image(s) What care is needed at home? ? Ask your doctor what you need to do when you go home. Make sure you ask questions if you do not understand what the doctor says. This way you will know what you need to do. ? Do not wear tight clothing over your belly. Wear clothes and belts that are loose around your waist. ? Raise the head of the bed up 6 to 8 inches (15 to 20 cm) or use a wedge pillow. This position maykeep stomach acid from getting into the esophagus. What follow-up care is needed? Your doctor may ask you to make visits to the office to check on your progress. Be sure to keep these visits. What drugs may be needed? The doctor may order drugs to: ? Lower stomach acid ? Stop heartburn ? Help with pain Will physical activity be limited? ? You may have to limit your activity. Talk to the doctor about the right amount of activity for you. Avoid sports that involve lifting heavy things and bending. This can cause stress on your belly. ? Avoid straining. Having trouble passing stool or hard stools may make your hernia worse. What changes to diet are needed? ? Avoid large, heavy meals. Eat a few small meals throughout the day. ? Avoid drinking too much with meals. ? Wait at least 2 to 3 hours after eating before lying down or bending over. ? Avoid foods that may upset the stomach. Some people have an upset belly after: o Coffee o [place] fruits and juices o Tomato products o Hot peppers o Fizzy drinks o Chocolate o Peppermint o Fatty foods o Beer, wine, and mixed drinks (alcohol) What problems could happen? ? Lower blood levels of iron ? No blood flow to hernia What can be done to prevent this health problem? ? Keep a healthy weight. ? Lose weight if you are overweight. ? Avoid smoking. Ask for help if it's hard to quit. When do I need to call the doctor? ? Heartburn that is worse when bending over or lying down ? Swallowing problems ? You are not feeling better in 2 to 3 days or you are feeling worse Teach Back: Helping You Understand The Teach Back Method helps you understand the information we are giving you. The idea is simple. After talking with the staff, tell them in your own words what you were just told. This helps to makesure the staff has covered each thing clearly. It also helps to explain things that may have been abit confusing. Before going home, make sure you are able to do these: ? I can tell you about my condition. ? I can tell you what changes I need to make with my diet or drugs. ? I can tell you what I will do if I have more heartburn when I am bending over or lying down. Where can I learn more? NHS Choices http://www.nhs.uk/conditions/hernia-hiatus/pages/introduction.aspx Consumer Information Use and Disclaimer: This information is not specific medical advice and does not replace information you receive from your health care provider. This is only a brief summary of general information. It does NOT include all information about conditions, illnesses, injuries, tests, procedures, treatments, therapies, discharge instructions or life-style choices that may apply to you. You must talk with your health care provider for complete information about your health and treatment options. This information should not be used to decide whether or not to accept your health care provider s advice, instructions or recommendations. Only your health care provider has the knowledge and training to provide advice that is right for you. Last Reviewed Date 2013-11-16 Last Updated 02/15/16 documented [facility] this [facility] Phone: Hospital Discharge instructions* Attachments The following attachments cannot be sent through Care Everywhere. * Upper GI Endoscopy Discharge Instructions (Uzbek) [facility]No reason for referral information [facility] Work Phone: Reason for visit Narrative* Imaging (Routine) - Closed Specialty Diagnoses / Procedures Referred By Elzbieta baeza Referred To Contact Radiology Diagnoses Other specified diseases of liver Procedures MR abdomen w and wo contrast Mita Morton, DO [address] [place] [address] Phone: tel: fax: [facility] MRI [address] [place] [address] Phone: tel: Referral ID Status Reason Start Date Expiration Date Visits Re quested Visits Authorized [id number] Closed 12/01/2023 11/30/2024 [facility] History of Present Illness * Yaz Bowman, RN - 09/21/2018 5:23 PM EDT D/C instructions given to patient and family. Verbalizes understanding. Patient to be transported off unit via nursing staff. * Yaz Bowman RN - 09/21/2018 3:[address] gillespie request, cardiology was contacted in regards to discharge. Ok for dc from cardiology standpoint. * Mark Amin Jr., MD - 09/21/2018 3:11 PM EDT Patient seen and chart reviewed. No bleed or thrombosis. Exam stable X 4 systems. Colonoscopy reveals splenic flexure polyp, left sided diverticulosis, and internal hemorrhoids. No current CBC. Discussed with patient, daughter, and staffing manager. Will continue to monitor. OK to discharge at anytime fromHeme/Onc perspective. Total visit time 25 minutes. * Yaz Bowman RN - 09/21/2018 2:20 PM EDT Patient returned from endo. Vital signs obtained. Appears stable at this time. Family at bedside. No needs identified. Will continue to monitor. * Juana Rooney RN - 09/21/2018 1:37 PM EDT POST ENDOSCOPY PROCEDURE TRANSFER REPORT Procedure completed: colonoscopy Specimens obtained:polyp removed Medications administered:propofol 250 mg Additional Info: tolerated well For additional Questions please call Endoscopy at [phone]. Thank You! * Yaz Bowman RN - 09/21/2018 8:24 AM EDT Daughter bernardo notified via telephone that patient would be going to endo at approx 1100. * Thania Leong MD - 09/20/2018 4:35 PM EDT No further spotting today. Pain has greatly improved. In the process of bowel prep for colonoscopy tomorrow. 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 * Haily Mcghee RN - 09/20/2018 4:12 PM EDT Assessment remains unchanged from this morning. * Mark Amin Jr., MD - 09/20/2018 4:04 PM EDT Hematology/Oncology Attending Progress Note SUBJECTIVE: Patient seen and chart reviewed. No bleed or thrombosis. More animated with clearing ofmentation today. OBJECTIVE BP 105/75 Pulse 83 Temp 98.5 F (36.9 C) (Temporal) Resp 16 Ht 5' 3 (1.6 m) Wt 122 lb 9.6oz (55.6 kg) SpO2 97% BMI 21.72 kg/m Physical CONSTITUTIONAL: awake NECK: Supple, symmetrical, trachea midline, no adenopathy, thyroid symmetric, not enlarged and no tenderness, skin normal HEMATOLOGIC/LYMPHATICS: no cervical lymphadenopathy and no supraclavicular lymphadenopathy LUNGS: no increased work of breathing CARDIOVASCULAR: regular rate and rhythm with ectopic beats ABDOMEN: soft, distended and tenderness noted diffusely NEUROLOGIC: No focal signs. SKIN: ecchymosis scattered EXT: Chronic stasis changes. Data Lab Results Component Value Date WBC 7.4 09/20/2018 HGB 11.4 (L) 09/20/2018 HCT 35.1 09/20/2018 MCV 88.9 09/20/2018 PLT 232 09/20/2018 Lab Results Component Value Date FERRITIN 15 08/05/2018 Lab Results Component Value Date IRON 12 (L) 08/06/2018 TIBC 417 08/06/2018 FERRITIN 15 08/05/2018 Lab Results Component Value Date [id number] 815 08/06/2018 Lab Results Component Value Date FOLATE >20.0 08/06/2018 LDH 182 ASSESSMENT AND PLAN Review of records from [facility] reveals that patient did in fact receive complete course of Venoferinfusions - the last being 09/06/2018. Colonoscopy tomorrow. RBC morphology still pending. Discussedwith patient and staffing manager. Will continue to monitor. Total visit time > 35 minutes. * Madison Jane, NEETA - 09/20/2018 1:00 PM EDT Physical Therapy Facility/Department: [facility] Daily Treatment Note NAME: Prema Villalpando : 1940 Date of Service: 09/20/2018 Discharge Recommendations: Home with Home health PT, Home with assist PRN Assessment Assessment: Increase mobility noted without device with no LOB noted . Pt would benefit from therapy to continue to progress safe functional mobility and steps REQUIRES PT FOLLOW UP: Yes Activity Tolerance Activity Tolerance: Patient Tolerated treatment well Patient Diagnosis(es): There were no encounter diagnoses. has a past medical history of Anemia, H/O heart artery stent, History of blood transfusion, Hx of blood clots, Hyperlipidemia, and Hypertension. has a past surgical history that includes Throat surgery (2013); Colonoscopy; eye surgery (Bilateral); and Upper gastrointestinal endoscopy (08/08/2018). Restrictions Restrictions/Precautions Restrictions/Precautions: General Precautions, Fall Risk Required Braces or Orthoses?: No Subjective General Chart Reviewed: Yes Family / Caregiver Present: No Subjective Subjective: Pt is agreeable to therapy General Comment Comments: OK per RN for therapy Pain Screening Patient Currently in Pain: Denies Vital Signs Patient Currently in Pain: Denies Objective Bed mobility Rolling to Left: Modified independent Supine to Sit: Modified independent Sit to Supine: Modified independent Scooting: Modified independent Transfers Sit to Stand: Supervision;Modified independent Stand to sit: Supervision;Modified independent Ambulation Ambulation?: Yes Ambulation 1 Surface: level tile Device: No Device Other Apparatus: (IV in tow) Assistance: Supervision Quality of Gait: Pt menjivar sslow steady pace with reciprocal pattern Distance: 375'x1,175'x1 Stairs/Curb Stairs?: No Goals Short term goals Time Frame for Short term goals: 4 visits Short term goal 1: Pt will complete 2-3 sets/10 reps of LE exercises to improve LE strength (NA) Short term goal 2: Pt will complete sit<->stand at mod I in preparation for ambulation (met) Short term goal 3: Pt will ambulate at least 50'x2 with least restrictive device at mod I to improve functional mobility (partially met) Short term goal 4: Pt will ascend/descend 2 stairs with railing at mod I for entrance into home (NA) Patient Goals Patient goals : to go home Plan Plan Times per week: 2 visits Times per day: Daily Current Treatment Recommendations: Strengthening, Balance Training, Functional Mobility Training, Transfer Training, Gait Training, Stair training, Home Exercise Program, Safety Education & Training, Patient/Caregiver Education & Training, Equipment Evaluation, Education, & procurement,Positioning Plan Comment: Goals and/or treatment plan were established in collaboration with patient Safety Devices Type of devices: All fall risk precautions in place, Call light within reach, Left in bed Therapy Time Individual Concurrent Group Co-treatment Time In 1152 Time Out 1210 Minutes 18 Timed Code Treatment Minutes: 15 Minutes(gait) Madison Jane PTA * Mita Morton DO - 09/20/2018 12:17 PM EDT Hospitalist Progress Note 09/21/2018 9:18 AM Subjective: Admit Date: 09/15/2018 PCP: MITA MORTON DO Interval History: pt doingok today feelingmuch better No intake or output data in the 24 hours ending 09/21/18 0918 Medications: sodium chloride 75 mL/hr at 09/21/18 0333 dicyclomine 10 mg Oral TID AC ursodiol 300 mg Oral BID amoxicillin-clavulanate 1 tablet Oral 2 times per day enoxaparin 40 mg Subcutaneous Daily potassium chloride 10 mEq Oral BID WC sodium chloride flush 10 mL Intravenous 2 times per day aspirin 81 mg Oral Daily atorvastatin 80 mg Oral Nightly clopidogrel 75 mg Oral Daily metoprolol tartrate 25 mg Oral BID therapeutic multivitamin-minerals 1 tablet Oral Daily psyllium 1 packet Oral Daily sertraline 50 mg Oral Daily torsemide 20 mg Oral Daily pantoprazole 40 mg Oral QAM AC Recent Labs 09/19/18 0406 09/20/18 0516 WBC 6.2 7.4 HGB 10.6* 11.4* PLT 225 232 Recent Labs 09/19/18 0406 09/20/18 0516 09/21/18 0249 NA 133* 140 134* K 3.8 3.7 3.4* CL 102 104 102 CO2 27 25 28 BUN 10 8 5* CREATININE 0.66 0.63 0.61 GLUCOSE 125* 136* 135* Recent Labs 09/19/18 0406 09/20/18 0516 09/21/18 0249 AST 52* 68* 137* ALT 78* 56 47 BILITOT 0.8 0.6 0.7 ALKPHOS 117 141* 117 Troponin T: No results for input(s): TROPONINI in the last 72 hours. Pro-BNP: No results for input(s): BNP in the last 72 hours. INR: No results for input(s): INR in the last 72 hours. Objective: Vitals: BP 136/77 Pulse 91 Temp 98 F (36.7 C) (Temporal) Resp 14 Ht 5' 3 (1.6 m) Wt 122 lb 9.6 oz (55.6 kg) SpO2 97% BMI 21.72 kg/m General appearance: alert and cooperative with exam Lungs: clear to auscultation bilaterally Heart: regular rate and rhythm, S1, S2 normal, no murmur, click, rub or gallop Abdomen: soft, non-tender; bowel sounds normal; no masses, no organomegaly Extremities: extremities normal, atraumatic, no cyanosis or edema Neurologic: No obvious focal neurologic deficits. Assessment and Plan: 1. Abdominal pain 2. Gallstones 3. Acute cholecystitis, will need medical/dietary management as Cardiology said no to surgery at this time 4. Fatty liver 5. Rising lipase 6. Hypokalemia 7. ?of GBS colonization of urine 8. Hx of CAD/MA/stents recently on ASA and Plavix, Cardiology will not agree to withholding either at this time 9. Hx of anemia and transfusions, ? of MDS, will re-consult Dr. Amin 10. Vaginal bleeding, consult INSULATION INSTALLER no workup needed Plan Colonoscopy tomorrow Advance Directive: Full Code DVT prophylaxis scd's Active Problems: Coronary artery disease involving [place] coronary artery of [place] heart without angina pectoris Abdominal pain Resolved Problems: * No resolved hospital problems. * MITA MORTON DO * Kiko Lau MD - 09/19/2018 3:58 PM EDT Department of Internal Medicine Gastroenterology Attending Progress Note SUBJECTIVE: No complaints. Medications Current Facility-Administered Medications: [START ON 09/20/2018] bisacodyl (DULCOLAX) EC tablet 10 mg, 10 mg, Oral, BID [START ON 09/20/2018] polyethylene glycol (GLYCOLAX) powder 255 g, 255 g, Oral, Daily dicyclomine (BENTYL) capsule 10 mg, 10 mg, Oral, TID AC ursodiol (ACTIGALL) capsule 300 mg, 300 mg, Oral, BID amoxicillin-clavulanate (AUGMENTIN) 875-125 MG per tablet 1 tablet, 1 tablet, Oral, 2 times per day enoxaparin (LOVENOX) injection 40 mg, 40 mg, Subcutaneous, Daily potassium chloride (KLOR-CON M) extended release tablet 10 mEq, 10 mEq, Oral, BID WC sodium chloride flush 0.9 % injection 10 mL, 10 mL, Intravenous, 2 times per day sodium chloride flush 0.9 % injection 10 mL, 10 mL, Intravenous, PRN magnesium hydroxide (MILK OF MAGNESIA) 400 MG/5ML suspension 30 mL, 30 mL, Oral, Daily PRN ondansetron (ZOFRAN) injection 4 mg, 4 mg, Intravenous, Q6H PRN 0.9 % sodium chloride infusion, , Intravenous, Continuous acetaminophen (TYLENOL) tablet 650 mg, 650 mg, Oral, Q4H PRN morphine (PF) injection 2 mg, 2 mg, Intravenous, Q3H PRN aspirin chewable tablet 81 mg, 81 mg, Oral, Daily atorvastatin (LIPITOR) tablet 80 mg, 80 mg, Oral, Nightly clopidogrel (PLAVIX) tablet 75 mg, 75 mg, Oral, Daily metoprolol tartrate (LOPRESSOR) tablet 25 mg, 25 mg, Oral, BID therapeutic multivitamin-minerals 1 tablet, 1 tablet, Oral, Daily psyllium (METAMUCIL) 58.12 % packet 1 packet, 1 packet, Oral, Daily sertraline (ZOLOFT) tablet 50 mg, 50 mg, Oral, Daily torsemide (DEMADEX) tablet 20 mg, 20 mg, Oral, Daily pantoprazole (PROTONIX) tablet 40 mg, 40 mg, Oral, QAM AC OBJECTIVE VITALS: BP 130/69 Pulse 87 Temp 98.7 F (37.1 C) (Temporal) Resp 16 Ht 5' 3 (1.6 m) Wt 122 lb 9.6 oz (55.6 kg) SpO2 96% BMI 21.72 kg/m TEMPERATURE: Current - Temp: 98.7 F (37.1 C); Max - Temp Av.4 F (36.9 C) Min: 97.9 F (36.6 C) Max: 99.8 F (37.7 C) RESPIRATIONS RANGE: Resp Av.5 Min: 16 Max: 20 PULSE RANGE: Pulse Av.7 Min: 82 Max: 101 BLOOD PRESSURE RANGE: Systolic (24hrs), Av , Min:122 , Max:150 ; Diastolic (24hrs), Av, Min:61, Max:86 PULSE OXIMETRY RANGE: SpO2 Av.5 % Min: 96 % Max: 97 % 24HR INTAKE/OUTPUT: No intake or output data in the 24 hours ending 09/19/18 1558 GENERAL: Pleasant and NAD. HEENT: NCAT, PERRLA, EOMI, Scleral anicteric. ABD: + BS, soft, non-tender and non-distended. No hepatosplenomegaly. No mass felt. No rebound or guarding. Data Recent blood work, radiologic study and endoscopic study were reviewed with the patient. CBC: Lab Results Component Value Date WBC 6.2 09/19/2018 RBC 3.66 09/19/2018 HGB 10.6 09/19/2018 HCT 32.0 09/19/2018 MCV 87.4 09/19/2018 MCH 29.0 09/19/2018 MCHC 33.2 09/19/2018 RDW 17.7 09/19/2018 PLT 225 09/19/2018 MPV 9.4 09/19/2018 CMP: Lab Results Component Value Date NA 133 09/19/2018 K 3.8 09/19/2018 CL 102 09/19/2018 CO2 27 09/19/2018 BUN 10 09/19/2018 CREATININE 0.66 09/19/2018 GLUCOSE 125 09/19/2018 PROT 6.3 09/19/2018 LABALBU 3.3 09/19/2018 LABALBU 3.0 08/06/2018 CALCIUM 9.0 09/19/2018 BILITOT 0.8 09/19/2018 ALKPHOS 117 09/19/2018 AST 52 09/19/2018 ALT 78 09/19/2018 BMP: Lab Results Component Value Date NA 133 09/19/2018 K 3.8 09/19/2018 CL 102 09/19/2018 CO2 27 09/19/2018 BUN 10 09/19/2018 LABALBU 3.3 09/19/2018 LABALBU 3.0 08/06/2018 CREATININE 0.66 09/19/2018 CALCIUM 9.0 09/19/2018 GLUCOSE 125 09/19/2018 ASSESSMENT AND PLAN Cleared per cardiology for colonoscopy on anti-coagulation. Will prep Tues for procedure Wed. Risksreviewed .Active Problems: Coronary artery disease involving [place] coronary artery of [place] heart without angina pectoris Abdominal pain Resolved Problems: * No resolved hospital problems. * * Dimitris Cavazos MD - 09/19/2018 1:43 PM EDT Progress Note 09/19/2018 1:43 PM Subjective: Admit Date: 09/15/2018 Interval History: stable today--lipase better--abd nontender--no chest pain DIET CARDIAC; Dietary Nutrition Supplements: Low Calorie High Protein Supplement No intake or output data in the 24 hours ending 09/19/18 1343 Medications: sodium chloride 75 mL/hr at 09/18/18 1846 dicyclomine 10 mg Oral TID AC ursodiol 300 mg Oral BID amoxicillin-clavulanate 1 tablet Oral 2 times per day enoxaparin 40 mg Subcutaneous Daily potassium chloride 10 mEq Oral BID WC sodium chloride flush 10 mL Intravenous 2 times per day aspirin 81 mg Oral Daily atorvastatin 80 mg Oral Nightly clopidogrel 75 mg Oral Daily metoprolol tartrate 25 mg Oral BID therapeutic multivitamin-minerals 1 tablet Oral Daily psyllium 1 packet Oral Daily sertraline 50 mg Oral Daily torsemide 20 mg Oral Daily pantoprazole 40 mg Oral QAM AC Recent Labs 09/18/18 0352 09/19/18 0406 WBC 8.9 6.2 HGB 11.8 10.6* PLT 281 225 Recent Labs 09/17/18 0431 09/18/18 0352 09/19/18 0406 NA 139 136 133* K 3.3* 3.6 3.8 CL 104 102 102 CO2 27 28 27 BUN 8 10 10 CREATININE 0.66 0.70 0.66 GLUCOSE 141* 133* 125* Recent Labs 09/17/18 0431 09/18/18 0352 09/19/18 0406 AST 76* 69* 52* ALT 109* 93* 78* BILITOT 0.6 0.8 0.8 ALKPHOS 146* 165* 117 Troponin T: No results for input(s): TROPONINI in the last 72 hours. Pro-BNP: No results for input(s): BNP in the last 72 hours. INR: No results for input(s): INR in the last 72 hours. Objective: Vitals: BP 134/65 Pulse 93 Temp 98 F (36.7 C) (Temporal) Resp 17 Ht 5' 3 (1.6 m) Wt 122 lb 9.6 oz (55.6 kg) SpO2 96% BMI 21.72 kg/m General appearance: alert and cooperative with exam, no distress Lungs: clear to auscultation bilaterally Heart: regular rhythm, S1, S2 normal, no murmur, click, rub or gallop Abdomen: soft, non-tender; bowel sounds normal; no masses, no organomegaly Extremities: Assessment and Plan: 1. 2. Active Problems: Coronary artery disease involving [place] coronary artery of [place] heart without angina pectoris Abdominal pain Resolved Problems: * No resolved hospital problems. * DIMITRIS CAVAZOS MD * Constance Crenshaw, MANAGEMENT ENGINEER - FLY FISHING GUIDE - 09/19/2018 11:46 AM EDT CARDIOLOGY PROGRESS NOTE Chart and interval events reviewed. Reason for Visit follow-up CAD SUBJECTIVE: Prema Villalpando denies CP, SOB, PND, orthopnea, edema, palpitations, syncope. States abdominal painhas resolved. SCHEDULED MEDICATIONS: dicyclomine 10 mg Oral TID AC ursodiol 300 mg Oral BID amoxicillin-clavulanate 1 tablet Oral 2 times per day enoxaparin 40 mg Subcutaneous Daily potassium chloride 10 mEq Oral BID WC sodium chloride flush 10 mL Intravenous 2 times per day aspirin 81 mg Oral Daily atorvastatin 80 mg Oral Nightly clopidogrel 75 mg Oral Daily metoprolol tartrate 25 mg Oral BID therapeutic multivitamin-minerals 1 tablet Oral Daily psyllium 1 packet Oral Daily sertraline 50 mg Oral Daily torsemide 20 mg Oral Daily pantoprazole 40 mg Oral QAM AC Active Problems: Coronary artery disease involving [place] coronary artery of [place] heart without angina pectoris Abdominal pain Resolved Problems: * No resolved hospital problems. * Review of Systems: Review of Systems Constitutional: Negative for activity change and fatigue. HENT: Negative for nosebleeds. Eyes: Negative for visual disturbance. Respiratory: Negative for cough, chest tightness, shortness of breath and wheezing. Denies PND, orthopnea Cardiovascular: Negative for chest pain, palpitations and leg swelling. Gastrointestinal: Positive for anal bleeding (found in undergarment). Negative for diarrhea, nauseaand vomiting. Genitourinary: Positive for vaginal bleeding. Negative for difficulty urinating, dysuria and hematuria. Musculoskeletal: Negative for arthralgias. Neurological: Negative for dizziness, syncope and light-headedness. VITAL SIGNS: Vitals: 09/18/18 2028 09/18/18 2334 09/19/18 0404 09/19/18 0743 BP: 122/61 133/74 (!) 140/86 (!) 150/78 Pulse: 89 82 92 101 Resp: Temp: 98.1 F (36.7 C) 97.9 F (36.6 C) 99.8 F (37.7 C) 98.1 F (36.7 C) TempSrc: Temporal Temporal Temporal SpO2: 96% 97% 97% 97% Weight: Height: Intake/Output Summary (Last 24 hours) at 09/19/2018 1146 Last data filed at 09/18/2018 1305 Gross per 24 hour Intake Output 400 ml Net -400 ml Patient Vitals for the past 96 hrs (Last 3 readings): Weight 09/15/18 1300 122 lb 9.6 oz (55.6 kg) Physical Exam: Physical Exam Constitutional: She is oriented to person, place, and time. She appears well- developed and well-nourished. HENT: Head: Normocephalic and atraumatic. Mouth/Throat: Oropharynx is clear and moist. Eyes: Conjunctivae and EOM are normal. No scleral icterus. Neck: No JVD present. Cardiovascular: Normal rate, regular rhythm, normal heart sounds and intact distal pulses. Exam reveals no gallop, no S3 and no S4. No murmur heard. Pulmonary/Chest: Effort normal and breath sounds normal. No respiratory distress. She has no wheezes. She has no rales. Abdominal: Soft. Bowel sounds are normal. She exhibits no distension. There is no tenderness. Musculoskeletal: Normal range of motion. She exhibits no edema. Neurological: She is alert and oriented to person, place, and time. Skin: Skin is warm and dry. She is not diaphoretic. Psychiatric: Her behavior is normal. Vitals reviewed. Data: Scheduled Meds: Reviewed Continuous Infusions: sodium chloride 75 mL/hr at 09/18/18 1846 CBC: Recent Labs 09/18/18 0352 09/19/18 0406 WBC 8.9 6.2 HGB 11.8 10.6* HCT 36.2 32.0* PLT 281 225 BMP: Recent Labs 09/18/18 0352 09/19/18 0406 NA 136 133* K 3.6 3.8 CL 102 102 CO2 28 27 BUN 10 10 CREATININE 0.70 0.66 INR:No results for input(s): INR in the last 72 hours. No results for input(s): BNP in the last 72 hours. TSH: Lab Results Component Value Date TSH 2.286 08/06/2018 Cardiac Injury Profile: No results for input(s): CKTOTAL, CKMB, TROPONINI in the last 72 hours. Lipid Profile: Lab Results Component Value Date TRIG 99 08/05/2018 HDL 25 08/05/2018 CHOL 94 08/05/2018 EKG: See Report Telemetry Reviewed: SR Echo: 08/04/2018 1. Left ventricle: Systolic function is normal by the biplane method of disks. The estimated ejection fraction is 67%. There are no regional wall motion abnormalities. 2. Right ventricle: The cavity size is normal. Wall thickness is normal. 3. Mitral valve: Mildly calcified, mildly thickened annulus. There is mild, 1+ regurgitation. 4. Aortic valve: Trileaflet; mildly thickened, mildly calcified leaflets. Peak velocity (S): 1.9 m/sec. Peak gradient (S): 14 mm Hg. 5. Tricuspid valve: There is mild-moderate, 1-2+ regurgitation. 6. Pulmonic valve: Structurally normal valve. 7. Inferior vena cava: The vessel is normal. The IVC collapses by greater than 50% with inspiration. [facility]: 08/04/2018 1. Acute coronary syndrome. Reperfusion was successfully achieved. 2. Successful PCI of the proximal LCx with a 3.0x23 drug eluting stent (culprit lesion), IVUS guided, post-dilated to 3.25mm. 3. Successful PCI of the distal LCx with a 2.25x23 drug eluting stent, IVUS guided. IMPRESSIONS/RECOMMENDATIONS: Biliary colic, resolved - not acute - painfree - med mgmt per GI - US abd pending Possible rectal bleeding and iron def anemia - OK for coloscopy from cardiac standpoint as long as she remains on DAPT CAD s/p STEMI 08/01/2018 with REBEKAH x 2 LCx - no anginal - DAPT, cannot be held - continue BB and statin SVT - no recurrence - continue BB Iron def anemia - per primary team, GI and heme/onc Vaginal bleeding - INSULATION INSTALLER consulted Dispo: will continue to follow Electronicallysigned by KALYN Arroyo CNP on 09/19/2018 at 11:46 AM * Kiko Bowie MD - 09/19/2018 9:45 AM EDT GENERAL SURGERY Progress Note PATIENT NAME: Prema Villalpando TODAY'S DATE: 09/19/2018 Agree with PA note Patient seen and examined She has no complaints Abdomen soft nontender nondistended Gallbladder symptoms resolved No surgery at this time Further management per medicine Can follow-up with surgery as outpatient if needed Patient counseled on risks,benefits, and alternatives of treatement plan at length. Patient states an understanding and willingness to proceed with plan. Kiko Bowie M.D. SUBJECTIVE: Patient lying in bed, no acute events overnight. Tolerating diet without nausea/vomiting. Denies any abdominal pain. + bowel function. Pain controlled Yes Other Complaints No Flatus/BM/or Ostomy function Yes OBJECTIVE: VITALS: BP 134/65 Pulse 93 Temp 98 F (36.7 C) (Temporal) Resp 17 Ht 5' 3 (1.6 m) Wt 122 lb 9.6 oz (55.6 kg) SpO2 96% BMI 21.72 kg/m INTAKE/OUTPUT: I/O last 3 completed shifts: In: 210 [P.O.:200; I.V.:10] Out: 400 [Urine:400] No intake/output data recorded. REVIEW OF SYSTEMS: Pertinent positives and negatives as per interval history section PHYSICAL EXAM: CONSTITUTIONAL: A&O x 3, LUNGS: Resp effort easy and unlabored, breath sounds normal CARDIOVASCULAR: RRR ABDOMEN: soft, non-distended, non-tender, peritoneal signs absent MUSCULOSKELETAL: Normal range of motion NEUROLOGIC: Level of Alertness: awake PSYCHIATRIC: Speech is normal SKIN: Warm, dry, and intact Data: CBC: Recent Labs 09/18/182 09/19/18 0406 WBC 8.9 6.2 HGB 11.8 10.6* HCT 36.2 32.0* PLT 281 225 BMP: Recent Labs 09/17/18 0431 09/18/18 0352 09/19/18 0406 NA 139 136 133* K 3.3* 3.6 3.8 CL 104 102 102 CO2 27 28 27 BUN 8 10 10 CREATININE 0.66 0.70 0.66 GLUCOSE 141* 133* 125* Hepatic: Recent Labs 09/17/1843009/18/182 09/19/18 0406 AST 76* 69* 52* ALT 109* 93* 78* BILITOT 0.6 0.8 0.8 ALKPHOS 146* 165* 117 ASSESSMENT AND PLAN: Ms. Villalpando is a 77 y/o F presenting with epigastric/RUQ abdominal pain, nausea, constipation. Foundto have cholelithiasis on recent outpatient abdominal US. Directly admitted for leukocytosis, elevated LFTs on recent outpatient labs and complaint of abdominal pain by PCP - MRCP yesterday was negative for choledocholitiasis. + for GBW thickening and pericholecystic fluid. ?Acute/Resolving Cholcystitis. GB filled on HIDA - Cardiology consult for stratification and potential need for surgical intervention: At this point we cannot interrupt her dual antiplatelet therapy. She should remain on aspirin and Plavix. Perhaps alternative therapy for her cholecystitis could be done. - Plan for non-operative management secondary to recent stents, patient symptomatically resolved, start PO Augmentin for 14 days. - Abdominal US ordered by PCP for evaluation due to elevated lipase over weekend - INSULATION INSTALLER consulted for vaginal bleeding - Regular Diet - prn pain/nausea medication - activity as tolerated - disposition: stable from surgery standpoint, continue po ABX,, f/u with Dr. Ash in 1 month Patient counseled on risks, benefits, and alternatives of treatment plan today. Patient states an understanding and willingness to proceed with plan. Betsy Reeves PA-C Personal Pager [phone] [facility] Surgery Pager [phone] during hours 7:30a-4:30p Wednesday-Wednesday After hours, please contact physician concrete rod buster. * Seema Schwarz MD - 09/18/2018 2:38 PM EDT Progress Note 09/18/2018 2:38 PM Subjective: Admit Date: 09/15/2018 PCP: MITA MORTON, Interval History: Patient was seen by GI who decided that since she was no longer symptomatic that it might be advisable to manage her gallbladder medically and with diet and put off any surgical solution for a year or so while she's still on th Plavix. In the meantime, her lipase has risen from 300's to 500's. Also, last night she had some vaginal bleeding and reports having been seen by Dr. Leong for this. Also very concerned about anemia and it turns out that several weeks ago she had been seen by Dr. Amin who recommeded Venofer and a work up for myelodysplastic syndrome once her cardiac status stabilized. DIET CARDIAC; Dietary Nutrition Supplements: Low Calorie High Protein Supplement Intake/Output Summary (Last 24 hours) at 09/18/2018 1438 Last data filed at 09/18/2018 1305 Gross per 24 hour Intake 210 ml Output 400 ml Net -190 ml Medications: sodium chloride 75 mL/hr at 09/16/18 0436 dicyclomine 10 mg Oral TID AC ursodiol 300 mg Oral BID amoxicillin-clavulanate 1 tablet Oral 2 times per day enoxaparin 40 mg Subcutaneous Daily potassium chloride 10 mEq Oral BID WC sodium chloride flush 10 mL Intravenous 2 times per day aspirin 81 mg Oral Daily atorvastatin 80 mg Oral Nightly clopidogrel 75 mg Oral Daily metoprolol tartrate 25 mg Oral BID therapeutic multivitamin-minerals 1 tablet Oral Daily psyllium 1 packet Oral Daily sertraline 50 mg Oral Daily torsemide 20 mg Oral Daily pantoprazole 40 mg Oral QAM AC Recent Labs 09/16/18 0446 09/18/18 0352 WBC 8.1 8.9 HGB 11.3* 11.8 PLT 247 281 Recent Labs 09/16/18 0446 09/17/18 0431 09/18/18 0352 NA 135 139 136 K 3.2* 3.3* 3.6 CL 99 104 102 CO2 29 27 28 BUN 11 8 10 CREATININE 0.75 0.66 0.70 GLUCOSE 131* 141* 133* Recent Labs 09/16/18 0446 09/17/18 0431 09/18/18 0352 AST 133* 76* 69* ALT 145* 109* 93* BILITOT 0.9 0.6 0.8 ALKPHOS 145* 146* 165* Objective: Vitals: BP 123/60 Pulse 85 Temp 98.5 F (36.9 C) (Temporal) Resp 16 Ht 5' 3 (1.6 m) Wt 122 lb 9.6 oz (55.6 kg) SpO2 97% BMI 21.72 kg/m General appearance: alert and cooperative with exam Lungs: clear to auscultation bilaterally Heart: regular rate and rhythm, S1, S2 normal, no murmur, click, rub or gallop Abdomen: soft, non-tender; bowel sounds normal; no masses, no organomegaly Extremities: extremities normal, atraumatic, no cyanosis or edema Neurologic: No obvious focal neurologic deficits. Assessment and Plan: 1. Abdominal pain 2. Gallstones 3. Acute cholecystitis, will need medical/dietary management as Cardiology said no to surgery at this time 4. Fatty liver 5. Rising lipase 6. Hypokalemia 7. ?of GBS colonization of urine 8. Hx of CAD/MA/stents recently on ASA and Plavix, Cardiology will not agree to withholding either at this time 9. Hx of anemia and transfusions, ? of MDS, will re-consult Dr. Amin 10. Vaginal bleeding, consult INSULATION INSTALLER Advance Directive: Full Code DVT prophylaxis scd's Discharge planning: home Active Problems: Coronary artery disease involving [place] coronary artery of [place] heart without angina pectoris Abdominal pain Resolved Problems: * No resolved hospital problems. * Seema Schwarz MD * Franklin Aviles, PT - 09/18/2018 10:32 AM EDT Physical Therapy Facility/Department: [facility] TE[facility] Daily Treatment Note NAME: Prema Villalpando : 1940 Date of Service: 09/18/2018 Discharge Recommendations: Home with Home health PT, Home with assist PRN PT Equipment Recommendations Equipment Needed: No Assessment Body structures, Functions, Activity limitations: Decreased functional mobility ;Decreased strength;Decreased safe awareness;Decreased balance Assessment: Pt presents with decreased functional mobility, requiring light assist to ensure safetyduring ambulation. Pt has decreased standing balance and safety awareness, placing pt at risk of falls. Pt is expected to benefit from skilled therapy to address functional mobility, strength, balance, and safety awareness Prognosis: Good History: Pt admitted with abdominal pain Clinical Presentation: Pt admitted with abdominal pain. Pt has a PMH as listed above that contributes to clinical presentation. Pt is expected to progress with acute PT and be safe to return home with daughter PT Education: PT Role;Plan of Care;General Safety REQUIRES PT FOLLOW UP: Yes Activity Tolerance Activity Tolerance: Patient Tolerated treatment well Patient Diagnosis(es): There were no encounter diagnoses. has a past medical history of Anemia, H/O heart artery stent, History of blood transfusion, Hx of blood clots, Hyperlipidemia, and Hypertension. has a past surgical history that includes Throat surgery (2014); Colonoscopy; eye surgery (Bilateral); and Upper gastrointestinal endoscopy (08/08/2018). Restrictions Restrictions/Precautions Restrictions/Precautions: General Precautions, Fall Risk Required Braces or Orthoses?: No Subjective General Chart Reviewed: Yes Family / Caregiver Present: Yes Subjective Subjective: Pt is agreeable to therapy Pain Screening Patient Currently in Pain: Denies Pain Assessment Pain Level: 0 Patient's Stated Pain Goal: No pain Vital Signs Patient Currently in Pain: Denies Orientation Orientation Overall Orientation Status: Within Functional Limits Cognition Cognition Overall Cognitive Status: WFL Objective Bed mobility Rolling to Left: Modified independent Rolling to Right: Modified independent Supine to Sit: Supervision Sit to Supine: Supervision Scooting: Supervision Transfers Sit to Stand: Supervision Stand to sit: Supervision Comment: denies dizziness Ambulation Ambulation?: Yes Ambulation 1 Surface: level tile Device: No Device(iv pole) Assistance: Stand by assistance Quality of Gait: pt demonstrates reciprocal pattern with good jimmy, no unsteadiness or LOB Distance: 175 'x2 Stairs/Curb Stairs?: No Balance Posture: Good Sitting - Static: Good Sitting - Dynamic: Good Standing - Static: Good;- Standing - Dynamic: Fair;+ Goals Short term goals Time Frame for Short term goals: 4 visits Short term goal 1: Pt will complete 2-3 sets/10 reps of LE exercises to improve LE strength (NA) Short term goal 2: Pt will complete sit<->stand at mod I in preparation for ambulation (not met) Short term goal 3: Pt will ambulate at least 50'x2 with least restrictive device at mod I to improve functional mobility (partially met) Short term goal 4: Pt will ascend/descend 2 stairs with railing at mod I for entrance into home (not met) Patient Goals Patient goals : to go home Plan Plan Times per week: 3 visits Times per day: Daily Current Treatment Recommendations: Strengthening, Balance Training, Functional Mobility Training, Transfer Training, Gait Training, Stair training, Home Exercise Program, Safety Education & Training, Patient/Caregiver Education & Training, Equipment Evaluation, Education, & procurement,Positioning Plan Comment: Goals and/or treatment plan were established in collaboration with patient Safety Devices Type of devices: All fall risk precautions in place, Call light within reach, Gait belt, Patient atrisk for falls, Left in bed, Nurse notified Therapy Time Individual Concurrent Group Co-treatment Time In 0956 Time Out 1010 Minutes 14 Timed Code Treatment Minutes: 14 Minutes(gait training) Franklin Aviles PT * Noelle Manrique, KALYN - FLY FISHING GUIDE - 09/18/2018 10:21 AM EDT CARDIOLOGY PROGRESS NOTE Chart and interval events reviewed. Reason for Visit hospital follow up CAD SUBJECTIVE: Prema Villalpando states abd pain resolved. No CP (was anginal sx w/MA), palpitations, dizziness, syncope. Up in chair in room. SCHEDULED MEDICATIONS: dicyclomine 10 mg Oral TID AC ursodiol 300 mg Oral BID amoxicillin-clavulanate 1 tablet Oral 2 times per day enoxaparin 40 mg Subcutaneous Daily potassium chloride 10 mEq Oral BID WC sodium chloride flush 10 mL Intravenous 2 times per day aspirin 81 mg Oral Daily atorvastatin 80 mg Oral Nightly clopidogrel 75 mg Oral Daily metoprolol tartrate 25 mg Oral BID therapeutic multivitamin-minerals 1 tablet Oral Daily psyllium 1 packet Oral Daily sertraline 50 mg Oral Daily torsemide 20 mg Oral Daily pantoprazole 40 mg Oral QAM AC Active Problems: Coronary artery disease involving [place] coronary artery of [place] heart without angina pectoris Abdominal pain Resolved Problems: * No resolved hospital problems. * Review of Systems: Review of Systems Constitutional: Negative for activity change and fatigue. HENT: Negative for congestion, nosebleeds and sore throat. Eyes: Negative for visual disturbance. Respiratory: Negative for cough, chest tightness, shortness of breath and wheezing. Cardiovascular: Negative for chest pain, palpitations and leg swelling. Gastrointestinal: Negative for diarrhea, nausea and vomiting. Anal bleeding: found in undergarment. Genitourinary: Negative for difficulty urinating, dysuria and hematuria. Musculoskeletal: Negative for arthralgias. Neurological: Negative for dizziness and light-headedness. VITAL SIGNS: Vitals: 09/17/18 2327 09/18/18 0244 09/18/18 0406 09/18/18 0814 BP: (!) 112/57 124/75 116/69 (!) 116/59 Pulse: 80 82 95 87 Resp: 18 18 18 16 Temp: 97.6 F (36.4 C) 97.6 F (36.4 C) 97.6 F (36.4 C) 97.8 F (36.6 C) TempSrc: Temporal Temporal Temporal Temporal SpO2: 96% 96% 94% 96% Weight: Height: Intake/Output Summary (Last 24 hours) at 09/18/2018 1022 Last data filed at 09/18/2018 0853 Gross per 24 hour Intake 210 ml Output Net 210 ml Patient Vitals for the past 96 hrs (Last 3 readings): Weight 09/15/18 1300 122 lb 9.6 oz (55.6 kg) Physical Exam: Physical Exam Constitutional: She is oriented to person, place, and time. She appears well- developed and well-nourished. HENT: Head: Normocephalic and atraumatic. Eyes: Conjunctivae are normal. Neck: No JVD present. No tracheal deviation present. Cardiovascular: Normal rate, regular rhythm and normal heart sounds. Musculoskeletal: She exhibits no edema or deformity. Neurological: She is alert and oriented to person, place, and time. Skin: Skin is warm and dry. Capillary refill takes less than 2 seconds. She is not diaphoretic. Psychiatric: Her behavior is normal. Data: Scheduled Meds: Reviewed Continuous Infusions: sodium chloride 75 mL/hr at 09/16/18 0436 CBC: Recent Labs 09/16/18 0446 09/18/18 0352 WBC 8.1 8.9 HGB 11.3* 11.8 HCT 34.0* 36.2 PLT 247 281 BMP: Recent Labs 09/17/18 0431 09/18/18 0352 NA 139 136 K 3.3* 3.6 CL 104 102 CO2 27 28 BUN 8 10 CREATININE 0.66 0.70 INR:No results for input(s): INR in the last 72 hours. No results for input(s): BNP in the last 72 hours. TSH: Lab Results Component Value Date TSH 2.286 08/06/2018 Cardiac Injury Profile: Recent Labs 09/15/18 1558 09/15/18 2153 09/16/18 0446 TROPONINI <0.012 0.012 <0.012 Lipid Profile: Lab Results Component Value Date TRIG 99 08/05/2018 HDL 25 08/05/2018 CHOL 94 08/05/2018 EKG: See Report Telemetry Reviewed: SR w/PVCs and 4 sec run of SVT Echo: 08/04/18 CONCLUSIONS SUMMARY: 1. Left ventricle: Systolic function is normal by the biplane method of disks. The estimated ejection fraction is 67%. There are no regional wall motion abnormalities. 2. Right ventricle: The cavity size is normal. Wall thickness is normal. 3. Mitral valve: Mildly calcified, mildly thickened annulus. There is mild, 1+ regurgitation. 4. Aortic valve: Trileaflet; mildly thickened, mildly calcified leaflets. Peak velocity (S): 1.9 m/sec. Peak gradient (S): 14 mm Hg. 5. Tricuspid valve: There is mild-moderate, 1-2+ regurgitation. 6. Pulmonic valve: Structurally normal valve. 7. Inferior vena cava: The vessel is normal. The IVC collapses by greater than 50% with inspiration. Cath report 08/04/18 IMPRESSIONS: 1. Acute coronary syndrome. Reperfusion was successfully achieved. 2. Successful PCI of the proximal LCx with a 3.0x23 drug eluting stent (culprit lesion), IVUS guided, post-dilated to 3.25mm. 3. Successful PCI of the distal LCx with a 2.25x23 drug eluting stent, IVUS guided. IMPRESSIONS/RECOMMENDATIONS: 1. Cholecystitis - pain resolved -med mgmt per GI 2. CAD-STEMI 08/04/18 w/REBEKAH x 2 to Cx -preserved EF 65% -on ASA/Plavix, cannot stop -on BB, statin-cont 3. SVT -short run, cont BB 4. H/O anemia requiring transfusions -per primary Electronicallysigned by KALYN JOHNSON CNP on 09/18/2018 at 10:22 AM * Kiko Lau MD - 09/18/2018 9:36 AM EDT Department of Internal Medicine Gastroenterology Attending Progress Note SUBJECTIVE: Denies abd pain. Per dtr has had rectal or vaginal bleeding. 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 Was treated with IV iron for LEXII. Medications Current Facility-Administered Medications: dicyclomine (BENTYL) capsule 10 mg, 10 mg, Oral, TID AC amoxicillin-clavulanate (AUGMENTIN) 875-125 MG per tablet 1 tablet, 1 tablet, Oral, 2 times per day enoxaparin (LOVENOX) injection 40 mg, 40 mg, Subcutaneous, Daily potassium chloride (KLOR-CON M) extended release tablet 10 mEq, 10 mEq, Oral, BID WC sodium chloride flush 0.9 % injection 10 mL, 10 mL, Intravenous, 2 times per day sodium chloride flush 0.9 % injection 10 mL, 10 mL, Intravenous, PRN magnesium hydroxide (MILK OF MAGNESIA) 400 MG/5ML suspension 30 mL, 30 mL, Oral, Daily PRN ondansetron (ZOFRAN) injection 4 mg, 4 mg, Intravenous, Q6H PRN 0.9 % sodium chloride infusion, , Intravenous, Continuous acetaminophen (TYLENOL) tablet 650 mg, 650 mg, Oral, Q4H PRN morphine (PF) injection 2 mg, 2 mg, Intravenous, Q3H PRN aspirin chewable tablet 81 mg, 81 mg, Oral, Daily atorvastatin (LIPITOR) tablet 80 mg, 80 mg, Oral, Nightly clopidogrel (PLAVIX) tablet 75 mg, 75 mg, Oral, Daily metoprolol tartrate (LOPRESSOR) tablet 25 mg, 25 mg, Oral, BID therapeutic multivitamin-minerals 1 tablet, 1 tablet, Oral, Daily psyllium (METAMUCIL) 58.12 % packet 1 packet, 1 packet, Oral, Daily sertraline (ZOLOFT) tablet 50 mg, 50 mg, Oral, Daily torsemide (DEMADEX) tablet 20 mg, 20 mg, Oral, Daily pantoprazole (PROTONIX) tablet 40 mg, 40 mg, Oral, QAM AC OBJECTIVE VITALS: BP (!) 116/59 Pulse 87 Temp 97.8 F (36.6 C) (Temporal) Resp 16 Ht 5' 3 (1.6 m) Wt 122 lb 9.6 oz (55.6 kg) SpO2 96% BMI 21.72 kg/m TEMPERATURE: Current - Temp: 97.8 F (36.6 C); Max - Temp Av.1 F (36.7 C) Min: 97.6 F (36.4 C) Max: 99.5 F (37.5 C) RESPIRATIONS RANGE: Resp Av.7 Min: 16 Max: 18 PULSE RANGE: Pulse Av.5 Min: 80 Max: 98 BLOOD PRESSURE RANGE: Systolic (24hrs), Av , Min:112 , Max:157 ; Diastolic (24hrs), Av, Min:57, Max:84 PULSE OXIMETRY RANGE: SpO2 Av.8 % Min: 94 % Max: 97 % 24HR INTAKE/OUTPUT: Intake/Output Summary (Last 24 hours) at 09/18/2018 0936 Last data filed at 09/18/2018 0853 Gross per 24 hour Intake 210 ml Output Net 210 ml GENERAL: Pleasant and NAD. ABD: + BS, soft, non-tender and non-distended. No hepatosplenomegaly. No mass felt. No rebound or guarding. Data Recent blood work, radiologic study and endoscopic study were reviewed with the patient. CBC: Lab Results Component Value Date WBC 8.9 09/18/2018 RBC 4.11 09/18/2018 HGB 11.8 09/18/2018 HCT 36.2 09/18/2018 MCV 88.1 09/18/2018 MCH 28.8 09/18/2018 MCHC 32.7 09/18/2018 RDW 18.1 09/18/2018 PLT 281 09/18/2018 MPV 9.3 09/18/2018 CMP: Lab Results Component Value Date NA 136 09/18/2018 K 3.6 09/18/2018 CL 102 09/18/2018 CO2 28 09/18/2018 BUN 10 09/18/2018 CREATININE 0.70 09/18/2018 GLUCOSE 133 09/18/2018 PROT 7.0 09/18/2018 LABALBU 3.7 09/18/2018 LABALBU 3.0 08/06/2018 CALCIUM 9.4 09/18/2018 BILITOT 0.8 09/18/2018 ALKPHOS 165 09/18/2018 AST 69 09/18/2018 ALT 93 09/18/2018 Hepatic Function Panel: Lab Results Component Value Date ALKPHOS 165 09/18/2018 ALT 93 09/18/2018 AST 69 09/18/2018 PROT 7.0 09/18/2018 BILITOT 0.8 09/18/2018 BILIDIR 0.0 08/05/2018 LABALBU 3.7 09/18/2018 LABALBU 3.0 08/06/2018 ASSESSMENT AND PLAN 1. Biliary colic resolved. Will need divya, timing per surgery and cardiology due to recent MA, stents, anticoag. Begin Yeny in the interim. 2. Will need colonoscopy due to LEXII, h/o poss rectal bleeding. Will discuss timing with cardiology. Active Problems: Abdominal pain Resolved Problems: * No resolved hospital problems. * * Lex Cline, - 09/18/2018 6:49 AM EDT Department of Surgery Progress Note - Surg 4 PATIENT NAME: Prema Villalpando : 1940 ATTENDING PHYSICIAN: Mita Morton DO ADMIT DATE: 09/15/2018 TODAY'S DATE: 09/18/2018 SUBJECTIVE Patient is doing well. Pain is well controlled on current medications. Patient denies nausea, denies vomiting, reports flatus, reports bowel movements, and is ambulating. Tolerating regular diet, symptoms resolved. OBJECTIVE VITALS: Patient Vitals for the past 24 hrs: BP Temp Temp src Pulse Resp SpO2 Height 09/18/18 0406 116/69 97.6 F (36.4 C) Temporal 95 18 94 % 09/18/18 0244 124/75 97.6 F (36.4 C) Temporal 82 18 96 % 09/17/18 2327 (!) 112/57 97.6 F (36.4 C) Temporal 80 18 96 % 09/17/18 1938 (!) 144/73 99.5 F (37.5 C) Temporal 98 18 97 % 09/17/18 1601 5' 3 (1.6 m) 09/17/18 0938 (!) 157/84 98.3 F (36.8 C) Temporal 89 18 96 % PHYSICAL EXAM: CONSTITUTIONAL: NAD, Resting in bed CHEST: Resp effort easy and unlabored ABDOMEN: soft, non-distended, non-tender EXT: extremities normal, atraumatic, no cyanosis or edema INTAKE/OUTPUT: I/O last 3 completed shifts: In: 900 [I.V.:900] Out: 800 [Urine:800] No intake/output data recorded. Data Recent Labs 09/15/18 1355 09/16/1844509/18/18 0352 WBC 8.8 8.1 8.9 HGB 12.0 11.3* 11.8 HCT 36.5 34.0* 36.2 PLT 275 247 281 Recent Labs 09/16/18 04409/17/18 0431 09/18/18 0352 NA 135 139 136 K 3.2* 3.3* 3.6 CL 99 104 102 CO2 29 27 28 BUN 11 8 10 CREATININE 0.75 0.66 0.70 GLUCOSE 131* 141* 133* Recent Labs 09/16/18 0446 09/17/18 0431 09/18/18 0352 AST 133* 76* 69* ALT 145* 109* 93* BILITOT 0.9 0.6 0.8 ALKPHOS 145* 146* 165* Current Inpatient Medications Current Facility-Administered Medications: amoxicillin-clavulanate (AUGMENTIN) 875-125 MG per tablet 1 tablet, 1 tablet, Oral, 2 times per day enoxaparin (LOVENOX) injection 40 mg, 40 mg, Subcutaneous, Daily potassium chloride (KLOR-CON M) extended release tablet 10 mEq, 10 mEq, Oral, BID WC sodium chloride flush 0.9 % injection 10 mL, 10 mL, Intravenous, 2 times per day sodium chloride flush 0.9 % injection 10 mL, 10 mL, Intravenous, PRN magnesium hydroxide (MILK OF MAGNESIA) 400 MG/5ML suspension 30 mL, 30 mL, Oral, Daily PRN ondansetron (ZOFRAN) injection 4 mg, 4 mg, Intravenous, Q6H PRN 0.9 % sodium chloride infusion, , Intravenous, Continuous acetaminophen (TYLENOL) tablet 650 mg, 650 mg, Oral, Q4H PRN morphine (PF) injection 2 mg, 2 mg, Intravenous, Q3H PRN aspirin chewable tablet 81 mg, 81 mg, Oral, Daily atorvastatin (LIPITOR) tablet 80 mg, 80 mg, Oral, Nightly clopidogrel (PLAVIX) tablet 75 mg, 75 mg, Oral, Daily metoprolol tartrate (LOPRESSOR) tablet 25 mg, 25 mg, Oral, BID therapeutic multivitamin-minerals 1 tablet, 1 tablet, Oral, Daily psyllium (METAMUCIL) 58.12 % packet 1 packet, 1 packet, Oral, Daily sertraline (ZOLOFT) tablet 50 mg, 50 mg, Oral, Daily torsemide (DEMADEX) tablet 20 mg, 20 mg, Oral, Daily pantoprazole (PROTONIX) tablet 40 mg, 40 mg, Oral, QAM AC ASSESSMENT & PLAN Ms. Villalpando is a 77 y/o F presenting with epigastric/RUQ abdominal pain, nausea, constipation. Foundto have cholelithiasis on recent outpatient abdominal US. Directly admitted for leukocytosis, elevated LFTs on recent outpatient labs and complaint of abdominal pain by PCP - MRCP yesterday was negative for choledocholitiasis. + for GBW thickening and pericholecystic fluid. ?Acute/Resolving Cholcystitis. GB filled on HIDA - Cardiology consult for stratification and potential need for surgical intervention: At this point we cannot interrupt her dual antiplatelet therapy. She should remain on aspirin and Plavix. Perhaps alternative therapy for her cholecystitis could be done. - Plan for non-operative management secondary to recent stents, patient symptomatically resolved, start PO Augmentin for 14 days. - Regular Diet - prn pain/nausea medication - activity as tolerated Pager:[phone] Associated attestation - Donald Ash MD - 09/20/2018 2:01 PM EDT Feels well. Abd soft. Tolerating diet. Plan Abx Adat No plan for surgery on this admission F/u in one month I saw and evaluated the patient on 09/18/2018 I agree with the findings and plan of care as documented in the resident/fellow's note. Greater than 51% of the 15 minute face to face encounter was spent discussing the risks and benefits of surgery as well as the preoperative and postoperative care plan for this patient. * Patrizia Triplett RD, THUY - 09/17/2018 4:23 PM EDT Nutrition Education Type and Reason for Visit: Initial, Consult -Low Fat, Cardiac diet education Nutrition Assessment: Assessment completed 09/17/18 -please see rd notes Verbally reviewed information with Patient/daughter: low fat/ cardiac diet Written educational materials provided. Contact name and number provided. RD following Contact Number: [phone] * Patrizia Triplett RD, THUY - 09/17/2018 4:10 PM EDT Nutrition Assessment Type and Reason for Visit: Initial, Consult Nutrition Recommendations: Pt/daughter educated on low fat, cardiac diet. diet materials provided for homegoing. Pt has rd contact number for questions/concerns Per mnt protocols will initiate ensure high protein daily (160 kcals, 16 gm protein, 2 gm fat per serving); discussed with pt/daughter appropriate low fat ons to use at home if needed Monitor weight, labs, oral intakes; RD to follow up Nutrition Assessment: consult for low fat/cardiac diet. pt admits with abdominal pain. gallstones, acute cholecystitis, fatty liver, anemia. hx cad/mi -stenting recently. daughter states pt has lost wt since 07/2018 she feels is multifactorial due to pt's varied po intakes (dtr encouraging ensure athome), healthy dietary changes (dtr cooking for pt now), and recovery from mi Malnutrition Assessment: Malnutrition Status: At risk for malnutrition Context: Acute illness or injury Nutrition Risk Level: High Nutrient Needs: Estimated Daily Total Kcal: 9244-8489 Estimated Daily Protein (g): 55-66 Nutrition Diagnosis: Problem: Food and nutrition-related knowledge deficit Etiology: related to Cardiac dysfunction(Acute cholecystitis) ? Signs and symptoms: as evidenced by (MD consult for diet education/ pt request for diet information) Objective Information: Nutrition-Focused Physical Findings: no edema. pt reports constipation relieved at this time Wound Type: None Current Nutrition Therapies: Oral Diet Orders: Cardiac Oral Diet intake: 76-100% Oral Nutrition Supplement (ONS) Orders: None ONS intake: Anthropometric Measures: Ht: 5' 3 (160 cm) Current Body Wt: 122 lb (55.3 kg) Usual Body Wt: 140 lb (63.5 kg) % Weight Change: , 12.9% wt loss in 2 mo [place] Body Wt: 115 lb (52.2 kg), % [place] Body 106% BMI Classification: BMI 18.5 - 24.9 Normal Weight Nutrition Interventions: Continue current diet, Start ONS Education Initiated Nutrition Evaluation: Evaluation: Goals set Goals: pt will receive and tolerate adequate nutrition; pt will not have unintentional wt loss Monitoring: Meal Intake, Supplement Intake, Diet Tolerance, Skin Integrity, I&O, Weight, Pertinent Labs, Monitor Bowel Function Contact Number: [phone] * Thania Roldan, OT - 09/17/2018 2:34 PM EDT Occupational Therapy Occupational Therapy Initial Assessment Date: 09/17/2018 Patient Name: Prema Villalpando : 1940 Date of Service: 09/17/2018 Performed chart review. Screen performed. Upon entering room patient was finishing toileting independent. Observed patient wash hands independent and walk back to her bed independent without AD. Patient demonstrated no difficulty reaching her socks. Denies any ADL needs and denies new cognitive loss. No OT needs. Return home with her daughter. Patient and her daughter expressed high levels of concern re: new diet changes. They would most likely benefit from a ecmo specialist consult. Spoke to Dr. Schwarz re: family and pt. Concerns. He reported placing a consult in for them. Thania Roldan OT * Seema Schwarz MD - 09/17/2018 1:59 PM EDT Progress Note 09/17/2018 1:59 PM Subjective: Admit Date: 09/15/2018 PCP: MITA MORTON DO Interval History: Patient is comfortable and denies pain, daughter is visiting. Had a normal HIDA scan this AM. DIET GENERAL; Intake/Output Summary (Last 24 hours) at 09/17/2018 1359 Last data filed at 09/17/2018 0600 Gross per 24 hour Intake 900 ml Output 800 ml Net 100 ml Medications: sodium chloride 75 mL/hr at 09/16/18 0436 amoxicillin-clavulanate 1 tablet Oral 2 times per day enoxaparin 40 mg Subcutaneous Daily potassium chloride 10 mEq Oral BID WC sodium chloride flush 10 mL Intravenous 2 times per day aspirin 81 mg Oral Daily atorvastatin 80 mg Oral Nightly clopidogrel 75 mg Oral Daily metoprolol tartrate 25 mg Oral BID therapeutic multivitamin-minerals 1 tablet Oral Daily psyllium 1 packet Oral Daily sertraline 50 mg Oral Daily torsemide 20 mg Oral Daily pantoprazole 40 mg Oral QAM AC Recent Labs 09/15/18 1355 09/16/18 0446 WBC 8.8 8.1 HGB 12.0 11.3* PLT 275 247 Recent Labs 09/15/18 1355 09/16/18 0446 09/17/18 0431 NA 139 135 139 K 3.4* 3.2* 3.3* CL 100 99 104 CO2 33* 29 27 BUN 13 11 8 CREATININE 0.83 0.75 0.66 GLUCOSE 111* 131* 141* Recent Labs 09/15/18 1355 09/16/18 0446 09/17/18 0431 AST 216* 133* 76* ALT 191* 145* 109* BILITOT 0.9 0.9 0.6 ALKPHOS 170* 145* 146* Objective: Vitals: BP (!) 157/84 Pulse 89 Temp 98.3 F (36.8 C) (Temporal) Resp 18 Ht 5' 3 (1.6 m) Wt 122 lb 9.6 oz (55.6 kg) SpO2 96% BMI 21.72 kg/m General appearance: alert and cooperative with exam Lungs: clear to auscultation bilaterally Heart: regular rate and rhythm, S1, S2 normal, no murmur, click, rub or gallop Abdomen: soft, non-tender; bowel sounds normal; no masses, no organomegaly Extremities: extremities normal, atraumatic, no cyanosis or edema Neurologic: No obvious focal neurologic deficits. Assessment and Plan: 1. Abdominal pain 2. Gallstones 3. Acute cholecystitis, will need medical/dietary management as Cardiology said no to surgery at this time 4. Fatty liver 5. Hypokalemia 6. ?of GBS colonization of urine 7. Hx of CAD/MA/stents recently on ASA and Plavix, Cardiology will not agree to withholding either at this time 8. Hx of anemia and transfusions Advance Directive: Full Code DVT prophylaxis scd's Discharge planning: home Active Problems: Abdominal pain Resolved Problems: * No resolved hospital problems. * Seema Schwarz MD * Elvie Beltran - 09/17/2018 9:05 AM EDT Nutrition rescreen completed. Patient referred to the Dietitian. * Donald Ash MD - 09/17/2018 7:16 AM EDT Mri negative for choledocolithiases. abd soft. Wbc normal. Plan abx No plan for surgery at this time Will follow, diet as tolerated I saw and evaluated the patient on 09/17/2018 I agree with the findings and plan of care as documented in the resident/fellow's note. Greater than 51% of the 15 minute face to face encounter was spent discussing the risks and benefits of surgery as well as the preoperative and postoperative care plan for this patient. Department of Surgery Progress Note PATIENT NAME: Prema Villalpando : 1940 ATTENDING PHYSICIAN: Mita Morton DO ADMIT DATE: 09/15/2018 TODAY'S DATE: 09/17/2018 SUBJECTIVE Patient is doing well. Pain is well controlled on current medications. Patient denies nausea, denies vomiting, denies flatus, denies bowel movements, and is ambulating. OBJECTIVE VITALS: Patient Vitals for the past 24 hrs: BP Temp Temp src Pulse Resp SpO2 09/17/18 0424 139/87 97.8 F (36.6 C) Temporal 118 18 97 % 09/16/18 2104 (!) 159/75 98.9 F (37.2 C) Temporal 78 18 97 % 09/16/18 1647 (!) 144/71 98.2 F (36.8 C) Temporal 82 18 96 % 09/16/18 0842 129/62 97.2 F (36.2 C) Temporal 85 19 97 % PHYSICAL EXAM: CONSTITUTIONAL: NAD, Resting in bed CHEST: Resp effort easy and unlabored ABDOMEN: soft, non-distended, non-tender EXT: extremities normal, atraumatic, no cyanosis or edema INTAKE/OUTPUT: Date 09/17/18 0000 - 09/17/18 2359 Shift [id number] 2307-4857 9261-1698 24 Hour Total INTAKE I.V.(mL/kg) 900(16.2) 900(16.2) Shift Total(mL/kg) 900(16.2) 900(16.2) OUTPUT Urine(mL/kg/hr) 800 800 Shift Total(mL/kg) 800(14.4) 800(14.4) Weight (kg) 55.6 55.6 55.6 55.6 I/O last 3 completed shifts: In: 1740 [P.O.:840; I.V.:900] Out: 1625 [Urine:1625] No intake/output data recorded. Data Recent Labs 09/15/18 1355 09/16/18 0446 WBC 8.8 8.1 HGB 12.0 11.3* HCT 36.5 34.0* PLT 275 247 Recent Labs 09/15/18 1355 09/16/18 0446 09/17/18 0431 NA 139 135 139 K 3.4* 3.2* 3.3* CL 100 99 104 CO2 33* 29 27 BUN 13 11 8 CREATININE 0.83 0.75 0.66 GLUCOSE 111* 131* 141* Recent Labs 09/15/18 1355 09/16/18 0446 09/17/18 0431 AST 216* 133* 76* ALT 191* 145* 109* BILITOT 0.9 0.9 0.6 ALKPHOS 170* 145* 146* Current Inpatient Medications Current Facility-Administered Medications: potassium chloride (KLOR-CON M) extended release tablet 10 mEq, 10 mEq, Oral, BID WC sodium chloride flush 0.9 % injection 10 mL, 10 mL, Intravenous, 2 times per day sodium chloride flush 0.9 % injection 10 mL, 10 mL, Intravenous, PRN magnesium hydroxide (MILK OF MAGNESIA) 400 MG/5ML suspension 30 mL, 30 mL, Oral, Daily PRN ondansetron (ZOFRAN) injection 4 mg, 4 mg, Intravenous, Q6H PRN 0.9 % sodium chloride infusion, , Intravenous, Continuous acetaminophen (TYLENOL) tablet 650 mg, 650 mg, Oral, Q4H PRN morphine (PF) injection 2 mg, 2 mg, Intravenous, Q3H PRN aspirin chewable tablet 81 mg, 81 mg, Oral, Daily atorvastatin (LIPITOR) tablet 80 mg, 80 mg, Oral, Nightly clopidogrel (PLAVIX) tablet 75 mg, 75 mg, Oral, Daily metoprolol tartrate (LOPRESSOR) tablet 25 mg, 25 mg, Oral, BID therapeutic multivitamin-minerals 1 tablet, 1 tablet, Oral, Daily psyllium (METAMUCIL) 58.12 % packet 1 packet, 1 packet, Oral, Daily sertraline (ZOLOFT) tablet 50 mg, 50 mg, Oral, Daily torsemide (DEMADEX) tablet 20 mg, 20 mg, Oral, Daily pantoprazole (PROTONIX) tablet 40 mg, 40 mg, Oral, QAM AC ASSESSMENT & PLAN Ms. Villalpando is a 77 y/o F presenting with epigastric/RUQ abdominal pain, nausea, constipation. Foundto have cholelithiasis on recent outpatient abdominal US. Directly admitted for leukocytosis, elevated LFTs on recent outpatient labs and complaint of abdominal pain by PCP - MRCP yesterday was negative for choledocholitiasis. + for GBW thickening and pericholecystic fluid. ?Acute/Resolving Cholcystitis - Cardiology consult for stratification and potential need for surgical intervention; patient recently had MA with 2x stents in August 04 2018, on dual antiplatelet therapy. - Epigastric/RUQ abdominal pain resolved - Regular Diet - Attempt non-operative management secondary to recent stents, start PO Augmentin - HIDA scan cancelled - GI following - prn pain/nausea medication - activity as tolerated Pager:[phone] * Dimitris Cavazos MD - 09/16/2018 3:09 PM EDT Progress Note 09/16/2018 3:10 PM Subjective: Admit Date: 09/15/2018 Interval History: cholelithiasis - for CCKK/HIDA-discussed this with Dr Lau--MRI in progress lo K+ DIET CARDIAC; Intake/Output Summary (Last 24 hours) at 09/16/2018 1510 Last data filed at 09/16/2018 1307 Gross per 24 hour Intake 840 ml Output 975 ml Net -135 ml Medications: sodium chloride 75 mL/hr at 09/16/18 0436 potassium chloride 10 mEq Oral BID sodium chloride flush 10 mL Intravenous 2 times per day aspirin 81 mg Oral Daily atorvastatin 80 mg Oral Nightly clopidogrel 75 mg Oral Daily metoprolol tartrate 25 mg Oral BID therapeutic multivitamin-minerals 1 tablet Oral Daily psyllium 1 packet Oral Daily sertraline 50 mg Oral Daily torsemide 20 mg Oral Daily pantoprazole 40 mg Oral QAM AC Recent Labs 09/15/18 1355 09/16/18 0446 WBC 8.8 8.1 HGB 12.0 11.3* PLT 275 247 Recent Labs 09/15/18 1355 09/16/18 0446 NA 139 135 K 3.4* 3.2* CL 100 99 CO2 33* 29 BUN 13 11 CREATININE 0.83 0.75 GLUCOSE 111* 131* Recent Labs 09/15/18 1355 09/16/18 0446 AST 216* 133* ALT 191* 145* BILITOT 0.9 0.9 ALKPHOS 170* 145* Troponin T: Recent Labs 09/15/18 1558 09/15/18 2153 09/16/18 0446 TROPONINI <0.012 0.012 <0.012 Pro-BNP: No results for input(s): BNP in the last 72 hours. INR: No results for input(s): INR in the last 72 hours. Objective: Vitals: BP 129/62 Pulse 85 Temp 97.2 F (36.2 C) (Temporal) Resp 19 Ht 5' 3 (1.6 m) Wt 122 lb 9.6 oz (55.6 kg) SpO2 97% BMI 21.72 kg/m General appearance: alert and cooperative with exam, no distress Lungs: Heart: Abdomen: Extremities: Assessment and Plan: 1. K+ 2. Active Problems: Abdominal pain Resolved Problems: * No resolved hospital problems. * DIMITRIS CAVAZOS MD * Thania Riojas - 09/16/2018 11:21 AM EDT Patient arrived to [facility] for her Hida Scan. Her IV was flushed, isotope injected, and IV flushed again without incident. Patient did not complain of any discomfort in the IV site. Put patient underthe camera and the dose was sitting in her arm. Asked patient if she had undiscomfort in the IV site and she denied any. Called Afshan RN and notified her of this and said if they still wanted the Hida it would have to be done first thing in the am. We had no more isotope for her scan. Patient was sent to MRI. RICK Peguero * Amelia Gonzalez, PT - 09/16/2018 10:15 AM EDT Physical Therapy Facility/Department: [facility] Initial Assessment NAME: Prema Villalpando : 1940 Date of Service: 09/16/2018 Discharge Recommendations: Home with Home health PT, Home with assist PRN PT Equipment Recommendations Equipment Needed: No Assessment Body structures, Functions, Activity limitations: Decreased functional mobility ;Decreased strength;Decreased safe awareness;Decreased balance Assessment: Pt presents with decreased functional mobility, requiring light assist to ensure safetyduring ambulation. Pt has decreased standing balance and safety awareness, placing pt at risk of falls. Pt is expected to benefit from skilled therapy to address functional mobility, strength, balance, and safety awareness Prognosis: Good Decision Making: Medium Complexity History: Pt admitted with abdominal pain Exam: AM-PAC Clinical Presentation: Pt admitted with abdominal pain. Pt has a PMH as listed above that contributes to clinical presentation. Pt is expected to progress with acute PT and be safe to return home with daughter PT Education: PT Role;Plan of Care;General Safety Barriers to Learning: Pt is [place] which may impact her ability to learn REQUIRES PT FOLLOW UP: Yes Patient Diagnosis(es): There were no encounter diagnoses. has a past medical history of Anemia, H/O heart artery stent, History of blood transfusion, Hx of blood clots, Hyperlipidemia, and Hypertension. has a past surgical history that includes Throat surgery (2013); Colonoscopy; eye surgery (Bilateral); and Upper gastrointestinal endoscopy (08/08/2018). Restrictions Restrictions/Precautions Restrictions/Precautions: General Precautions, Fall Risk Vision/Hearing Vision: Within Functional Limits Vision Exceptions: Wears glasses for reading Hearing: Exceptions to WFL Hearing Exceptions: Hard of hearing/hearing concerns;Bilateral hearing aid Subjective General Chart Reviewed: Yes Patient assessed for rehabilitation services?: Yes Family / Caregiver Present: Yes Subjective Subjective: Pt is agreeable to therapy Pain Screening Patient Currently in Pain: Denies Social/Functional History Social/Functional History Lives With: Daughter Type of Home: House Home Layout: Two level, Able to Live on Main level with bedroom/bathroom Home Access: Stairs to enter with rails Entrance Stairs - Number of Steps: 1-2 Bathroom Shower/Tub: Walk-in shower Bathroom Toilet: Standard Bathroom Equipment: Grab bars in shower, Shower chair Home Equipment: Rolling walker ADL Assistance: Independent Homemaking Assistance: Needs assistance(daughter completes) Homemaking Responsibilities: No Ambulation Assistance: Independent(no device) Transfer Assistance: Independent Cognition Cognition Overall Cognitive Status: WFL Objective AROM RLE (degrees) RLE AROM: WFL AROM LLE (degrees) LLE AROM : WFL Strength RLE Comment: observed functionally Strength LLE Comment: observed functionally Sensation Overall Sensation Status: WFL Bed mobility Supine to Sit: Supervision(with HOB elevated and use of bed rails) Sit to Supine: Supervision Comment: denies dizziness Transfers Sit to Stand: Supervision Stand to sit: Supervision Comment: denies dizziness Ambulation Ambulation?: Yes Ambulation 1 Surface: level tile Device: No Device Other Apparatus: (IV) Assistance: Stand by assistance Quality of Gait: pt demonstrates reciprocal pattern with good jimmy, no unsteadiness or LOB Distance: 20'x2 Comments: pt declined to ambulate farther Stairs/Curb Stairs?: No Balance Posture: Good Sitting - Static: Good Sitting - Dynamic: Good Standing - Static: Fair Standing - Dynamic: Fair Plan Plan Times per week: 4 visits Times per day: Daily Current Treatment Recommendations: Strengthening, Balance Training, Functional Mobility Training, Transfer Training, Gait Training, Stair training, Home Exercise Program, Safety Education & Training, Patient/Caregiver Education & Training, Equipment Evaluation, Education, & procurement,Positioning Plan Comment: Goals and/or treatment plan were established in collaboration with patient Safety Devices Type of devices: All fall risk precautions in place, Call light within reach, Gait belt, Patient atrisk for falls, Left in bed, Nurse notified OutComes Score AM-[facility] Mobility Inpatient How much difficulty turning over in bed?: A Little How much difficulty sitting down on / standing up from a chair with arms?: A Little How much difficulty moving from lying on back to sitting on side of bed?: A Little How much help from another person moving to and from a bed to a chair?: A Little How much help from another person needed to walk in hospital room?: A Little How much help from another person for climbing 3-5 steps with a railing?: Total -[facility] Inpatient Mobility Raw Score : 16 AM-[facility] Inpatient T-Scale Score : 40.78 Mobility Inpatient CMS 0-100% Score: 54.16 Mobility Inpatient CMS G-Code Modifier : CK AM-PAC Score AM-[facility] Inpatient Mobility Raw Score : 16 (09/16/181004) [facility] T-Scale Score : 40.78 (09/16/181004) Mobility Inpatient CMS 0-100% Score: 54.16 (09/16/181004) Mobility Inpatient CMS G-Code Modifier : CK (09/16/181004) Goals Short term goals Time Frame for Short term goals: 4 visits Short term goal 1: Pt will complete 2-3 sets/10 reps of LE exercises to improve LE strength Short term goal 2: Pt will complete sit<->stand at mod I in preparation for ambulation Short term goal 3: Pt will ambulate at least 50'x2 with least restrictive device at mod I to improve functional mobility Short term goal 4: Pt will ascend/descend 2 stairs with railing at mod I for entrance into home Patient Goals Patient goals : to go home Therapy Time Individual Concurrent Group Co-treatment Time In 09 Time Out 0932 Minutes 18 Amelia Gonzalez PT, DPT documented in this encounter* Edis Paz, ELEAZAR - 11/09/2019 11:15 AM EDT Ultrasound: This patient is here as an outpatient with her daughter for a Thyroid Biopsy . She verbalizes understanding of the procedural instructions. Dr. Rivera has spoken to her. History, allergies, medications and lab results reviewed. Informed consent signed. Prepped and draped in sterile fashion. Time out was performed. She is on a monitor. Tolerated the procedure well. Tissue samples to Cytology. She is in no distress. Band aid to left neck dry and intact. No bleeding. No hematoma. Home going instructions given to her and her daughter. Discharge to home. documented in this encounter Assessments Diagnosis Abdominal pain Abdominal pain, unspecified site Coronary artery disease involving [place] coronary artery of [place] heart without angina pectoris Iron deficiency anemia Iron deficiency anemia, unspecified Diagnosis Coronary artery disease involving [place] coronary artery of [place] heart without angina pectoris Dyslipidemia Other and unspecified hyperlipidemia Diagnosis Nontoxic single thyroid nodule Nontoxic uninodular goiter Diagnosis Thyroid nodule Nontoxic uninodular goiter Advance Directives No Advanced Directives Records FoundDocuments on File Type Date Recorded Patient System Developer Associate Manager Expl anation Advance Directives and Livin g Will Advance Directives and Livin g Will 08/09/2018 2:28 PM Advance Directives and Livin g Will 08/19/2018 2:08 PM Power of Group Chief Operator Latest Code Status on File Code Status Date Activated Date Inactivated Comments Full Code 09/15/2018 1:35 PM Full Code 08/04/2018 8:50 PM 08/08/2018 6:48 PM Full Code 08/04/2018 8:50 PM 08/04/2018 8:50 PM Documents on File Type Date Recorded Patient System Developer Associate Manager Expl anation Advance Directives and Livin g Will Advance Directives and Livin g Will 08/09/2018 2:28 PM Advance Directives and Livin g Will 08/19/2018 2:08 PM Advance Directives and Livin g Will 02/22/2019 10:08 AM Advance Directives and Livin g Will 03/09/2019 1:06 PM Power of Group Chief Operator Latest Code Status on File Code Status Date Activated Date Inactivated Comments Full Code 02/14/2019 10:08 AM 02/18/2019 4:36 PM Full Code 02/11/2019 12:28 PM 02/14/2019 10:08 AM Full Code 09/15/2018 1:35 PM 09/21/2018 7:54 PM Documents on File Type Date Recorded Patient System Developer Associate Manager Expl anation Advance Directives and Livin g Will Advance Directives and Livin g Will 08/09/2018 2:28 PM Advance Directives and Livin g Will 08/19/2018 2:08 PM Advance Directives and Livin g Will 02/22/2019 10:08 AM Advance Directives and Livin g Will 03/09/2019 1:06 PM Advance Directives and Livin g Will 04/05/2019 3:18 PM Power of Group Chief Operator Documents on File Type Date Recorded Patient System Developer Associate Manager Expl anation ACP-Advance Directive ACP-Advance Directive 08/09/2018 2:28 PM ACP-Advance Directive 08/19/2018 2:08 PM ACP-Advance Directive 02/22/2019 10:08 AM ACP-Advance Directive 03/09/2019 1:06 PM ACP-Advance Directive 04/05/2019 3:18 PM ACP-Power of Group Chief Operator Documents on File Type Date Recorded Patient System Developer Associate Manager Expl anation ACP-Advance Directive ACP-Advance Directive 08/09/2018 2:28 PM ACP-Advance Directive 08/19/2018 2:08 PM ACP-Advance Directive 02/22/2019 10:08 AM ACP-Advance Directive 03/09/2019 1:06 PM ACP-Advance Directive 04/05/2019 3:18 PM ACP-Power of Group Chief Operator Latest Code Status on File Code Status Date Activated Date Inactivated Comments Full Code 02/14/2019 10:08 AM 02/18/2019 4:36 PM Full Code 02/11/2019 12:28 PM 02/14/2019 10:08 AM Full Code 09/15/2018 1:35 PM 09/21/2018 7:54 PM Full Code 08/04/2018 8:50 PM 08/08/2018 6:48 PM Full Code 08/04/2018 8:50 PM 08/04/2018 8:50 PM Documents on File Type Date Recorded Patient System Developer Associate Manager Expl anation ACP-Advance Directive ACP-Power of Group Chief Operator ACP-Advance Directive 04/05/2019 3:18 PM ACP-Advance Directive 03/09/2019 1:06 PM ACP-Advance Directive 02/22/2019 10:08 AM ACP-Advance Directive 08/19/2018 2:08 PM ACP-Advance Directive 08/09/2018 2:28 PM Latest Code Status on File Code Status Date Activated Date Inactivated Comments Full Code 02/14/2019 10:08 AM Documents on File Type Date Recorded Patient System Developer Associate Manager Expl anation Advance Directives and Livin g Will Advance Directives and Livin g Will 08/09/2018 2:28 PM Advance Directives and Livin g Will 08/19/2018 2:08 PM Advance Directives and Livin g Will 02/22/2019 10:08 AM Power of Group Chief Operator Advance Directive Response Recorded Date/ Time Living Will No February 10 0 3:40pm Power of Group Chief Operator Yes February 10, 020 3:40pm Advance Directive Response Recorded Date/ Time Name of Medical Power of Group Chief Operator Hossein [email or web address] May 12, 2022 12:29pm Living Will Yes May 12, 2022 12:29pm Power of Group Chief Operator Yes May 12 12:29pm Advance Directive Response Recorded Date/ Time Name of Medical Power of Group Chief Operator Hossein Cornell - aki May 12, 2022 12:29pm Name of Medical Power of Group Chief Operator HOSSEIN CORNELL June 01, 2022 8:32pm Living Will Yes June 01, 2022 8:32pm Power of Group Chief Operator Yes June 01 8:32pm Documents on File Type Date Recorded Patient System Developer Associate Manager Expl anation Advance Directives and Living Will 04/04/2019 Advance Directives and Living Will 03/07/2019 Advance Directives and Living Will 02/11/2019 Latest Code Status on File Code Status Date Activated Date Inactivated Comments Full Code 06/13/2022 4:30 PM Healthcare Agents on File Name Relationship Healthcare Agent [facility] Communication Hossein Cornell Child Health Care Agent Documents on File Type Date Recorded Patient System Developer Associate Manager Expl anation Advance Directives and Living Will 04/04/2019 Advance Directives and Living Will 03/07/2019 Advance Directives and Living Will 02/11/2019 Latest Code Status on File Code Status Date Activated Date Inactivated Comments Full Code 06/13/2022 4:30 PM 06/16/2022 10:36 PM Healthcare Agents on File Name Relationship Healthcare Agent [employer] Communication Hossein Demali Child Health Care Agent [phone] (Home) Healthcare Agents on File Name Relationship Healthcare Agent Relationshi p Communication Hossein Demali Child Health Care Agent Healthcare Agents on File Name Relationship Healthcare Agent Relationshi p Communication Hossein Demali Child Health Care Agent Latest Code Status on File Code Status Date Activated Date Inactivated Comments Full Code 06/13/2022 4:30 PM 06/16/2022 10:36 PM Healthcare Agents on File Name Relationship Healthcare Agent Relationshi p Communication Hossein Demali Child Health Care Agent Healthcare Agents on File Name Relationship Healthcare Agent Relationshi p Communication Hossein Demali Child Health Care Agent Healthcare Agents on File Name Relationship Healthcare Agent Relationshi p Communication Hossein Demali Child Health Care Agent Advance Directive Response Recorded Date/ Time Living Will Yes June 01, 2022 8:32pm Power of Group Chief Operator Yes June 01 8:32pm Healthcare Agents on File Name Relationship Healthcare Agent Relationshi p Communication Hossein Demali Child Health Care Agent [phone] (Home) Healthcare Agents on File Name Relationship Healthcare Agent Relationshi p Communication Hossein Demali Child Health Care Agent Healthcare Agents on File Name Relationship Healthcare Agent Relationshi p Communication Hossein Demali Child Health Care Agent Healthcare Agents on File Name Relationship Healthcare Agent Relationshi p Communication Hossein Demali Child Health Care Agent Advance Directive Response Recorded Date/ Time Name of Medical Power of Group Chief Operator DAUGHTER December 29, 2022 12:22pm Living Will Yes December 29, 2 023 12:22pm Power of Group Chief Operator Yes December 29, 2022 12:22pm Advance Directive Response Recorded Date/ Time Name of Medical Power of Group Chief Operator DAUGHTER December 29, 2022 12:22pm Name of Medical Power of Group Chief Operator daughter April 04, 2023 11:12am Living Will Yes April 04, 2 024 11:12am Power of Group Chief Operator Yes April 04, 2023 11:12am Healthcare Agents on File Name Relationship Healthcare Agent Relationshi p Communication Hossein Demali Child Health Care Agent [phone] (Home) .[place] Healthcare Agents on File Name Relationship Healthcare Agent Relationshi p Communication Hossein Demali Child Health Care Agent [phone] (Home) .[place] Date Activated Date Inactivated Comments 06/13/2022 4:30 PM 06/16/2022 10:36 PM Healthcare Agents on File Name Relationship Healthcare Agent Relationshi p Communication Hossein Demali Child Health Care Agent [phone] (Home) .[place] Healthcare Agents on File Name Relationship Healthcare Agent Relationshi p Communication Hossein Demali Child Health Care Agent [id number] (Home) .[place] Healthcare Agents on File Name Relationship Healthcare Agent Relationshi p Communication Hossein Demali Child Health Care Agent [phone] (Mobile) .[place] Date Activated Date Inactivated Comments 06/13/2022 4:30 PM 06/16/2022 10:36 PM Healthcare Agents on File Name Relationship Healthcare Agent Relationshi p Communication Hossein Demali Child Health Care Agent [phone] (Mobile) Healthcare Agents on File Name Relationship Healthcare Agent Relationshi p Communication Hossein Demali Child Health Care Agent [phone] (Mobile) .[place] Summary Purpose Family History No Family History Records Found Relationship Condition Age at Onset Recorded Date/T ranjana Not Specified Unknown Reason for Referral Status Reason Specialty Diagnoses / Procedures Referre d By Contact Referred To Contact Open Radiology Diagnoses Thyroid nodule Procedures US FINE NEEDLE ASPIRATION Zoe WyattKALYN - FLY FISHING GUIDE [address] [facility] [address] [place] [address] Status Reason Specialty Diagnoses / Procedures Referre d By Contact Referred To Contact Open Radiology Diagnoses Thyroid nodule Procedures US Thyroid Zoe WyattKALYN - FLY FISHING GUIDE [address] [facility] [address] [place] [address] Status Reason Specialty Diagnoses / Procedures Referre d By Contact Referred To Contact Open Radiology Diagnoses Left thyroid nodule Procedures US GUIDED THYROID BIOPSY PERCUTANEOUS Betsy Reeves PA-C [address] [facility] [address] [place] [address] Specialty Diagnoses / Procedures Referred By Elzbieta baeza Referred To Contact Cardiology Diagnoses Other specified symptoms and signs involving the circulatory and respiratory systems Procedures Vascular US carotid artery duplex bilateral Mita Morton, [address] [place] [address] Referral ID Status Reason Start Date Expiration Date Visits Requested Visits Authorized [id number] Pending Review Perform Procedure 05/27/2022 11/23/2022 1 1 Discharge Instructions * Attachments The following attachments cannot be sent through Care Everywhere. * Thyroid: Biopsy: Fine-Needle: Post-op (Uzbek) * Thyroid Nodules (Uzbek) documented in this encounter Chief Complaint and Reason for Visit Chief Complaint ATAXIA/BALANCE. RX H ERE CLOSED HEAD INJURY. 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 HERNIA Reason for Visit Dysphagia History of esophageal stricture History of hypertension Chief Complaint HIATAL HERNIA HIATAL HERNIA HIATAL HERNIA AM EKG HIATAL HERNIA weakness Reason for Visit Dysphagia History of esophageal stricture History of hypertension Chief Complaint ADMISSION EXAM LAB WORK LAB WORK ADMISSION EXAM LAB WORK SCIATIC NERVE PAIN/RX HERE Chief Complaint SCIATIC NERVE PAIN/R X HERE Chief Complaint 2 WK FU FALL Reason for Visit Dysphagia Alzheimer's dementia Chief Complaint Admit Date ALF LAB WORK March 16, 2024 5:00am MONTHLY EXAM March 21, 2024 2:27pm MONTHLY EXAM April 10, 2024 2:51 pm MONTHLY EXAM May 09, 2024 4:31 pm Additional Source Comments INFORMATION SOURCE (unrecogn ized section and content) DATE CREATED AUTHOR 03/21/2019 [facility] DATE CREATED AUTHOR AUTHOR'S ORGANIZ ATION 07/01/2019 [facility] DATE CREATED AUTHOR AUTHOR'S ORGANIZ ATION 10/07/2019 [facility] DATE CREATED AUTHOR AUTHOR'S ORGANIZ ATION 12/02/2019 [facility] ([place]) DATE CREATED AUTHOR AUTHOR'S ORGANIZ ATION 05/16/2021 [facility] DATE CREATED AUTHOR AUTHOR'S ORGANIZ ATION 12/26/2023 [facility] DATE CREATED AUTHOR AUTHOR'S ORGANIZ ATION 08/11/2024 [facility] Reason for Visit (unrecogniz ed section and content) Reason Comments Other transfer. Dx with ch olecystitis Specialty Diagnoses / Procedures Referred By Contac t Referred To Contact Cardiology Diagnoses Other specified symptoms and signs involving the circulatory and respiratory systems Procedures Vascular US carotid artery duplex bilateral Mita Morton DO [address] [place] [address] Referral ID Status Reason Start Date Expiration Date Visits Requested Visits Authorized [id number] Pending Review Perform Procedure 05/27/2022 11/23/2022 1 1 Reason Comments Leg Swelling Specialty Diagnoses / Procedures Referred By Contac t Referred To Contact Diagnoses Hyponatremia Anemia Hepatitis Procedures . Mita Morton DO [address] [place] [address] [facility] [address] [address] [place], [place] [address] [address] Referral ID Status Reason Start Date Expiration Date Visits Re quested Visits Authorized [id number] 1 1 Reason Comments Med Refill Reason Comments 1 Year Follow-up Coronary Artery Disease Reason Onset Date Comments Cardiac Clearance 12/09/2022 Reason Onset Date Comments Fall 07/20/2023 Reason Onset Date Comments Cardiac Clearance 07/23/2023 Specialty Diagnoses / Procedures Referred By Contac t Referred To Contact Diagnoses Dysphagia Dysphagia [R13.10] Procedures UT ESOPHAGOGASTRODUODENOSCOPY TRANSORAL DIAGNOSTIC EGD DIAGNOSTIC Lalitha Powell MD [address] [place] [address] [address] [place] [address] [facility] [address] [place] [address] Referral ID Status Reason Start Date Expiration Date Visits Re quested Visits Authorized [id number] 1 1 Reason Onset Date Comments Medication Question 02/27/2022 Care Coordination 02/27/2022 Goals (unrecognized section and content) Goals may be documented in a n alternate sectionGoals may be documented in an alternate sectionGoals may be documented in an alternate section Care Teams (unrecognized sec tion and content) 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 Mita Morton DO Family Provider Active Dr. Mita Morton DO Primary Care Provider Active Team Status: Active Member Role Status Dates Dr. Mita Morton DO Primary Care Provider Active Dr. Zonia Benitez DO Emergency Provider Active Dr. Jovi Pack MD Admit Provi ailyn, Attending Provider, Other Provider Active Team Status: Active Member Role Status Dates Dr. Mita Morton DO Primary Care Provider Active Dr. Zonia Benitez DO Emergency Provider Active Dr. Jovi Pack MD Admit Provider, Other Pro vider Active Dr. Roque Herrera , DO Attending Provider Active Team Status: Active Member Role Status Dates Dr. Mita Morton DO Primary Care Provider Active Dr. Roque Herrera , DO Attending Provider Active Team Status: Inactive Member Role Status Dates Dr. Mita Morton DO Primary Care Provider Active Dr. Zonia Benitez , DO Emergency Provider Active Dr. Jovi Pack MD Admit Provider, Attending Provider Active Team Status: Active Member Role Status Dates Dr. Mita Morton DO Primary Care Provider Active Dr. Deonte Guardado MD Attending Provider Active Dr. Jovi Pack MD Referring Provider Active Team Status: Inactive Member Role Status Dates Dr. Mita Morton DO Primary Care Provider Active Dr. 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 Turbine Electrical Engineer Relationship Specialty Start Date End Date [facility], [facility] [address] [place] [address] PCP - General 02/10/22 Mita Morton DO Family Medicine 01/12/22 Wind Turbine Electrical Engineer Relationship Specialty Start Date End Date [facility], [facility] [address] [place] [address] PCP - General 02/10/22 06/14/22 Mita Morton DO [address] [place] [address] PCP - General Family Medicine 06/15/22 Mita Morton DO Family Medicine 01/12/22 Wind Turbine Electrical Engineer Relationship Specialty Start Date End Date Mita Morton DO [address] [place] [address] PCP - General Family Medicine 06/15/22 Mita Morton DO Family Medicine 01/12/22 Wind Turbine Electrical Engineer Relationship Specialty Start Date End Date Mita Morton DO [address] [place] [address] [place] [phone] PCP - General Family Medicine 06/15/22 Mita Morton DO Family Medicine 01/12/22 Wind Turbine Electrical Engineer Relationship Specialty Start Date End Date [facility], [facility] [address] [place] [address] PCP - General 02/10/22 06/14/22 Mita Morton DO [address] [place] [phone] PCP - General Family Medicine 06/15/22 Mita Morton DO Family Medicine 01/12/22 Wind Turbine Electrical Engineer Relationship Specialty Start Date End Date Mita Morton DO [address] [place] [address] [place] [phone] PCP - General Family Medicine 06/15/22 Mita Morton DO [facility] Medicine 01/12/22 Wind Turbine Electrical Engineer Relationship Specialty Start Date End Date Mita Morton DO [address] [place] [address] [place] [address] PCP - General Family Medicine 06/15/22 Mita Morton DO [facility] Medicine 01/12/22 Team Status: Inactive Member Role Status Dates Dr. Mita Morton , DO Primary Care Provider Active Fallon Mcclendon NP SAILOR-C Attending Provider Active Team Status: Inactive Member Role Status Dates Dr. Mita Morton , DO Primary Care Provider Active Dr. Anabel Duvall MD Attending Provider Active Team Status: Active Member Role Status Dates Dr. Mita Morton , DO Primary Care Provider Active Anabel WALSH MD Attending Provider Active Team Status: Active Member Role Status Dates Dr. Mita Morton , DO Primary Care Provider Active DONOVAN NapolesC Attending Provider, Referrin g Provider Active Team Status: Inactive Member Role Status Dates Dr. Mita Morton , DO Primary Care Pro vider, Attending Provider, Referring Provider Active Wind Turbine Electrical Engineer Relationship Specialty Start Date End Date Mita Morton DO [address] [place] [address] [place] [address] PCP - General Family Medicine 06/15/22 Mita Morton DO Family Medicine 01/12/22 Wind Turbine Electrical Engineer Relationship Specialty Start Date End Date Mita Morton DO [address] [address] [place] [address] PCP - General Family Medicine 06/15/22 Mita Morton DO Family Medicine 01/12/22 Team Status: Active Member Role Status Dates Dr. Mita Morton , DO Primary Care Provider, Referri ng Provider Active Dr. Roque Herrera , DO Attending Provider, Other Prov ider Active Team Status: Inactive Member Role Status Dates Dr. Mita Morton , DO Primary Care Provider, Referri ng Provider Active Dr. Roque Herrera , DO Attending Provider Active Team Status: Inactive Member Role Status Dates Dr. Mita Morton , DO Primary Care Provider Active Memo Naqvi MD Emergency Provider Active Wind Turbine Electrical Engineer Relationship Specialty Start Date End Date Mita Morton DO [address] [place] [address] [place] [address] PCP - General Family Medicine 06/15/22 Mita Morton DO Family Medicine 01/12/22 Wind Turbine Electrical Engineer Relationship Specialty Start Date End Date Mita Morton DO [address] [place] [address] [place] [phone] PCP - General Family Medicine 06/15/22 Mita Morton DO Family Medicine 01/12/22 Wind Turbine Electrical Engineer Relationship Specialty Start Date End Date Mita Mortno DO [address] [place] [place] [phone] PCP - General Family Medicine 06/15/22 Mita Morton DO Family Medicine 01/12/22 Wind Turbine Electrical Engineer Relationship Specialty Start Date End Date Mita Morton DO [address] [place] [place] [address] PCP - General Family Medicine 06/15/22 Mita Morton DO Family Medicine 01/12/22 Wind Turbine Electrical Engineer Relationship Specialty Start Date End Date No, Pcp [address] [place] [address] PCP - General 02/10/22 Mita Morton DO [address] [phone] Family Medicine 01/12/22 Wind Turbine Electrical Engineer Relationship Specialty Start Date End Date No, Pcp [address] [place] [address] PCP - General 02/10/22 Mita Morton DO Family Medicine 01/12/22 Wind Turbine Electrical Engineer Relationship Specialty Start Date End Date No, Pcp [address] [place] [address] PCP - General 02/10/22 Mita Morton DO Family Medicine 01/12/22 Wind Turbine Electrical Engineer Relationship Specialty Start Date End Date No, Pcp [address] [place] [address] PCP - General 02/10/22 Mita Morton DO Family Medicine 01/12/22 Wind Turbine Electrical Engineer Relationship Specialty Start Date End Date No, Pcp [address] [place] [address] PCP - General 02/10/22 Mita Morton DO [facility] 01/12/22 Team Status: Active Member Role Status Dates Dr. Mita Morton DO Primary Care Provider Active Start: March 16, 2024 Anabel WALSH MD Attending Provider Active Start: March 16, 2024 Team Status: Inactive Member Role Status Dates Dr. Mita Morton DO Primary Care Provider Active Start: March 21, 2024 End: March 21, 2024 Dr. Anabel Duvall MD Attending Provider Active Start: March 21, 2024 End: March 21, 2024 Team Status: Inactive Member Role Status Dates Dr. Mita Morton DO Primary Care Provider Active Start: April 10, 2024 End: April 10, 2024 Fallon Mcclendon NP, SAILOR-C Attending Provider Active Start: April 10, 2024 End: April 10, 2024 Team Status: Inactive Member Role Status Dates Dr. Mita Morton DO Primary Care Provider Active Start: May 09, 2024 End: May 09, 2024 Dr. Anabel Duvall MD Attending Provider Active Start: May 09, 2024 End: May 09, 2024 Team Status: Active Member Role Status Dates Dr. Mita Morton DO Primary Care Provider Active Start: June 12, 2024 Anabel WALSH MD Attending Provider Active Start: June 12, 2024 Scheduled Active and Recently Administ ered Medications (unrecognized section and content) Medication Order 06/14/2022 06/15/2022 06/16/2022 dicyclomine (Bentyl) capsule 10 mg 10 mg, Oral, 3 times daily, First dose on 06/13/22 at 1649 0832 (Given - Provider: Lennie Aguilar RN)1622 (Given - Provider: Lennie Aguilar, ELEAZAR)2118 (Given - Provider: Ashley Gutierrez RN) 0835 (Given - Provider: Lennie Aguilar RN)1607 (Given - Provider: Lennie Aguilar RN)203 (Given - Provider: Fiordaliza Del Castillo, ELEAZAR) 0912 (Given - Provider: Nicole Boles RN)1357 (Given - Provider: Nicole Boles RN)2099 (Canceled Entry - Provider: Automatic Discharge Provider - Comment: Automatically canceled at discontinue of medication order) fluticasone (Flovent) 220 MCG/ACT inhaler 2 puff 2 puff, Inhalation, 2 times daily, First dose on Wed06/13/22 at 2000, Rinse mouth with water after use to reduce aftertaste and incidence of candidiasis. Do not swallow. 0800 (Given - Provider: Edis Sanchez RCP)2034 (Given - Provider: Thania Dee RCP) 1015 (Given - Provider: Thania Okeefe RCP)2021 (Given - Provider: Zahida Pruitt RCP) 0852 (Given - Provider: Gurinder Elizondo RCP)1999 (Canceled Entry - Provider: Automatic Discharge Provider - Comment: Automatically canceled at discontinue of medication order) iron sucrose (Venofer) 200 mg in sodium chloride 0.9 % 100 mL IVPB 200 mg, IntraVENous, at 300 mL/hr, Administer over 20 Minutes, Every 24 hours, First dose on Wed06/15/22 at 1000, For 3 doses, Observe for signs and symptoms of hypersensitivity and/or anaphylactic-type reactions per institutional standard during and following administration. 1009 (New Bag - Provider: Lennie Aguilar RN)1029 (Stopped - Provider: Lennie Aguilar RN) 0915 (New Bag - Provider: Nicole Boles RN)0935 (Stopped - Provider: Nicole Boles, ELEAZAR) memantine (Namenda) tablet 5 mg 5 mg, Oral, 2 times daily, First dose on Wed06/13/22 at 2100 0832 (Given - Provider: Lennie Aguilar RN)2118 (Given - Provider: Ashley Gutierrez RN) 0857 (Given - Provider: Lennie Aguilar RN)2029 (Given - Provider: Fiordaliza Del Castillo RN) 0912 (Given - Provider: Nicole Boles RN)2099 (Canceled Entry - Provider: Automatic Discharge Provider - Comment: Automatically canceled at discontinue of medication order) metFORMIN (Glucophage) tablet 500 mg 500 mg, Oral, 2 times daily with meals, First dose on 06/13/22 at 1700 0832 (Given - Provider: Lennie Aguilar RN)1622 (Given - Provider: Lennie Aguilar RN) 0857 (Given - Provider: Lennie Aguilar RN)1607 (Given - Provider: Lennie Aguilar RN) 0912 (Given - Provider: Nicole Boles, ELEAZAR)1717 (Given - Provider: Nicole Boles RN) metoprolol tartrate (Lopressor) tablet 25 mg 25 mg, Oral, 2 times daily, First dose on 06/13/22 at 2100 0832 (Given - Provider: Lennie Aguilar RN)2118 (Given - Provider: Ashley Gutierrez RN) 0859 (Given - Provider: Lennie Aguilar RN)203 (Given - Provider: Fiordaliza Del Castillo, ELEAZAR) 09 (Given - Provider: Nicole Boles RN)2099 (Canceled Entry - Provider: Automatic Discharge Provider - Comment: Automatically canceled at discontinue of medication order) mirtazapine (Remeron) tablet 15 mg 15 mg, Oral, Nightly, First dose on 06/13/22 at 2100 211 (Given - Provider: Ashley Gutierrez RN) 2029 (Given - Provider: Fiordaliza Del Castillo, ELEAZAR) 2099 (Canceled Entry - Provider: Automatic Discharge Provider - Comment: Automatically canceled at discontinue of medication order) pantoprazole (ProtoNix) EC tablet 40 mg 40 mg, Oral, Daily before breakfast, First dose on 06/14/22 at 0700, Do not crush, chew, or split. 0832 (Given - Provider: Lennie Aguilar RN) 0521 (Given - Provider: Ashley Gutierrez RN) 0528 (Given - Provider: Fiordaliza Del Castillo, ELEAZAR) potassium chloride CR (Klor-Con M10) ER tablet 10 mEq 10 mEq, Oral, 2 times daily, First dose on 06/13/22 at 2100, Best given with food and plenty of water to minimize gastric irritation. Do not crush or chew. 0831 (Given - Provider: Lennie Aguilar RN)2117 (Given - Provider: Ashley Gutierrez RN) 0859 (Given - Provider: Lennie Aguilar RN)2029 (Given - Provider: Fiordaliza Del Castillo RN) 0912 (Given - Provider: Nicole Boles RN)2100 (Canceled Entry - Provider: Automatic Discharge Provider - Comment: Automatically canceled at discontinue of medication order) potassium chloride CR (Klor-Con M20) ER tablet 20 mEq (COMPLETED) 20 mEq, Oral, Once, On Wed06/16/22 at 0915, For 1 dose, Best given with food and plenty of water to minimize gastric irritation. Do not crush or chew. 0921 (Given - Provider: Nicole Boles RN) rivastigmine (Exelon) capsule 3 mg 3 mg, Oral, 2 times daily, First dose on 06/13/22 at 2100 0833 (Given - Provider: Lennie Aguilar RN)2120 (Given - Provider: Ashley Gutierrez RN) 0858 (Given - Provider: Lennie Aguilar RN)2030 (Given - Provider: Fiordaliza Del Castillo RN) 0915 (Given - Provider: Nicole Boles, ELEAZAR)2100 (Canceled Entry - Provider: Automatic Discharge Provider - Comment: Automatically canceled at discontinue of medication order) sertraline (Zoloft) tablet 50 mg 50 mg, Oral, Daily, First dose on 06/13/22 at 1645 0832 (Given - Provider: Lennie Aguilar RN) 0859 (Given - Provider: Lennie Aguilar RN) 0912 (Given - Provider: Nicole Boles RN) torsemide (Demadex) tablet 20 mg 20 mg, Oral, Daily, First dose on 06/13/22 at 1645 0832 (Given - Provider: Lennie Aguilar RN) 0857 (Given - Provider: Lennie Aguilar RN) 0912 (Given - Provider: Nicole Boles, ELEAZAR) trospium (Sanctura) tablet 20 mg 20 mg, Oral, Daily, First dose on 06/13/22 at 1645, Substituted for oxybutynin (DITROPAN); fesoterodine (TOVIAZ); darifenacin (ENABLEX); solifenacin (VESICARE); tolterodine IR (DETROL); tolterodine ER (DETROL LA). 0831 (Given - Provider: Lennie Aguilar RN) 0857 (Given - Provider: Lennie Aguilar RN) 0912 (Given - Provider: Nicole Boles, ELEAZAR) ursodiol (Actigall) capsule 300 mg 300 mg, Oral, 2 times daily, First dose on 06/13/22 at 2100 0833 (Given - Provider: Lennie Aguilar RN)2120 (Given - Provider: Ashley Gutierrez RN) 0857 (Given - Provider: Lennie Aguilar RN)203 (Given - Provider: Fiordaliza Del Castillo, ELEAZAR) 0915 (Given - Provider: Nicole Boles, ELEAZAR)2100 (Canceled Entry - Provider: Automatic Discharge Provider - Comment: Automatically canceled at discontinue of medication order) Continuous Medication Order 06/14/2022 06/15/2022 06/16/2022 sodium chloride 0.9 % infusion 100 mL/hr, IntraVENous, Continuous, Starting on 06/13/22 at 1645 0538 (New Bag - Provider: Guille Bacon RN)0838 (Rate/Dose Verify - Provider: Lennie Aguilar RN)1517 (Rate/Dose Verify - Provider: Lennie Aguilar RN)1622 (New Bag - Provider: Lennie Aguilar RN)1726 (Rate/Dose Verify - Provider: Lennie Aguilar RN) 0525 (New Bag - Provider: Ashley Gutierrez RN)0901 (Rate/Dose Verify - Provider: Lennie Aguilar RN)1605 (New Bag - Provider: Lennie Aguilar RN)203 (Rate/Dose Verify - Provider: Fiordaliza Del Castillo RN)2152 (Rate/Dose Verify - Provider: Fiordaliza Del Castillo RN) 0001 (Rate/Dose Verify - Provider: Fiordaliza Del Castillo RN)0357 (Rate/Dose Verify - Provider: Fiordaliza Del Castillo RN)0514 (New Bag - Provider: Fiordaliza Del Castillo RN)0515 (Rate/Dose Verify - Provider: Fiordaliza Del Castillo RN) PRN Medication Order 06/14/2022 06/15/2022 06/16/2022 acetaminophen (Tylenol) suppository 650 mg(Linked Group 1) 650 mg, Rectal, Every 6 hours PRN, mild pain (1-3), fever, For temp greater than 100.4 F (38 C), Starting on 06/13/22 at 1630, Administer if oral route cannot be used. Maximum dose of acetaminophen is 4000 mg from all sources in 24 hours. acetaminophen (Tylenol) tablet 650 mg(Linked Group 1) 650 mg, Oral, Every 6 hours PRN, mild pain (1-3), fever, For temp greater than 100.4 F (38 C), Starting on 06/13/22 at 1630, Maximum dose of acetaminophen is 4000 mg from all sources in 24 hours. ondansetron (Zofran) injection 4 mg(Linked Group 2) 4 mg, IntraVENous, Every 6 hours PRN, nausea, vomiting, Starting on 06/13/22 at 1630, 1st Line. Give IV if patient is unable to take orally. If inadequate response within 60 minutes, proceed to next-line agent or contact provider if no further options ordered. ondansetron ODT (Zofran-ODT) disintegrating tablet 4 mg(Linked Group 2) 4 mg, Oral, Every 8 hours PRN, nausea, vomiting, Starting on 06/13/22 at 1630, 1st Line. If inadequate response within 60 minutes, proceed to next-line agent or contact provider if no further options ordered. Patient should allow tablet to dissolve on tongue. Do not remove from blister pack until just before administering. polyethylene glycol (PEG) 3350 (Miralax) packet 17 g 17 g, Oral, Daily PRN, constipation, Starting on 06/13/22 at 1630, 1st line for treatment of constipation - give scheduled if no bowel movement in past 24 hours. Linked Groups Order Group 1: acetaminophen (Tylenol) tablet 650 mgJump to med 650 mg, Oral, Every 6 hours PRN, mild pain (1-3), fever, For temp greater than 100.4 F (38 C), Starting on 06/13/22 at 1630
Maximum dose of acetaminophen is 4000 mg from all sources in 24 hours.
Or acetaminophen (Tylenol) suppository 650 mgJump to med 650 mg, Rectal, Every 6 hours PRN, mild pain (1-3), fever, For temp greater than 100.4 F (38 C), Starting on 06/13/22 at 1630
Administer if oral route cannot be used. Maximum dose of acetaminophen is 4000 mg from all sources in 24 hours.
Group 2: ondansetron ODT (Zofran-ODT) disintegrating tablet 4 mgJump to med 4 mg, Oral, Every 8 hours PRN, nausea, vomiting, Starting on 06/13/22 at 1630
1st Line. If inadequate response within 60 minutes, proceed to next-line agent or contact provider if no further options ordered. Patient should allow tablet to dissolve on tongue. Do not remove from blister pack until just before administering.
Or ondansetron (Zofran) injection 4 mgJump to med 4 mg, IntraVENous, Every 6 hours PRN, nausea, vomiting, Starting on 06/13/22 at 1630
1st Line. Give IV if patient is unable to take orally. If inadequate response within 60 minutes, proceed to next-line agent or contact provider if no further options ordered.
Scheduled Medication Order 02/21/2022 02/22/2022 02/23/2022 sodium chloride 0.9% (NS) flush 10 mL 10 mL, IntraVENous, Every 12 hours scheduled (2 times per day), First dose on Wed02/23/22 at 0900 0900 (Canceled Entry - Provider: Automatic Discharge Provider - Comment: Automatically canceled at discontinue of medication order) PRN Medication Order 02/21/2022 02/22/2022 02/23/2022 sodium chloride 0.9 % infusion 5-250 mL/hr, IntraVENous, PRN, if patient receiving piggyback infusions and maintenance fluids are not ordered OR KVO fluids to protect IV site / prevent frequent line interruptions/ long duration, Starting on Wed02/23/22 at 0742, For piggyback infusion, administer at same rate as piggyback for a total of 25 mL. Enter 25 mL into dose field and piggyback rate into rate field of order. If piggyback is infusing at a rate less than 100 mL/hr, enter 25 mL into dose field and 100 mL/hr into rate field of order. For KVO fluids, enter rate of 20 mL/hr or less into rate field of order. sodium chloride 0.9% (NS) flush 10 mL 10 mL, IntraVENous, PRN, line care, Starting on Wed02/23/22 at 0742, After every IV line use Source Comments (unrecognize d section and content) In the event this informatio n is protected by the Federal Confidentiality of Alcohol and Drug Abuse Patient Records regulations: The Federal rules restrict any use of the information to criminally investigate or prosecute any alcohol or drug abuse patient.[facility] FOR RECORDS PERTAINING TO PATIENTS WHO ARE OR HAVE BEEN ENROLLED IN A CHEMICAL DEPENDENCY/SUBSTANCEABUSE PROGRAM, SOME INFORMATION MAY BE OMITTED. This clinical summary was aggregated from multiple sources. Caution should be exercised in using it in the provision of clinical care. This summary normalizes information from multiple sources, and as a consequence, information in this document may materially change the coding, format and clinical context of patient data. In addition, data may be omitted in some cases. CLINICAL DECISIONS SHOULD BE BASED ON THE PRIMARY CLINICAL RECORDS. [employer] provides no warranty or guarantee of the accuracy or completeness of information in this document.
--- OUTSIDE RECORDS SUMMARY | 2024-08-18 04:10 | XMS RPT_ITS | CCD ---
Author Organization [facility] Inform ion Partnership [facility] Care Team Providers Care Costume Specialist Name Role Phone Mita Morton Primary Care Provider [phone] Dr. Mita Morton Primary Care Provider Dr. Zonia Benitez Emergency Provider Dr. Jovi Pack Admit Provider Dr. Jovi Pack Attending Provider Dr. Jovi Pack Other Provider Dr. Roque Herrera Attending Provider Dr. Deonte Guardado Attending Provider Dr. Jovi Pack Referring Provider Mita Morton DO Unavailable [facility] Primary Care Provider Soledad yung [facility] Primary Care Provider Unav ailable Mita Morton DO Primary Care Provider Mita Morton DO Unavailable Mita Morton DO Primary Care Provider Dr. Mita Morton Primary Care Provider Hakan WHELAN, COMPUTER ANALYST SUPERVISOR-Mira Lehman Attending Provider Dr. Anabel Hughes Attending Provider Dr. Mita Morton Primary Care Provider Dr. Mita Morton Referring Provider Dr. Roxanne Herreran Attending Provider FriendDr. Nevarez Other Provider [phone] Unavailable Primary Care Provider UnavailBRITTANY Hernandez Attending Unavailable ESTERLE, MITA Primary Care Unavailable ESTERLE, MITA Attending Unavailable ESTERLE, MITA Referring Unavailable ESTERLE, MITA Primary Care Unavailable ESTERLE, MITA Attending Unavailable ESTERLE, MITA Referring Unavailable ESTERLE, MITA Primary Care Unavailable TONI BEY Attending Unavailable ESTERLE, MITA Primary Care Unavailable Esterle DO, Mita M Unavailable No, Pcp Primary Care Provider Unavailabl e Esterle DO, Mita M Unavailable Estergonzalo DO, Dr. Mita Lima Primary Care Provider [phone] Anabel Duvall MD Attending Provider Unavaila melany Duvall MD, Dr. Little Attending Provider Hakan COMPUTER ANALYST SUPERVISOR-CFallon Attending Provider Esterle, Mita M Primary Care [...] Esterle, Mita M Primary Care Unavailable Tickton COMPUTER ANALYST SUPERVISOR, Fallon Attending Unavailable Rebekahton COMPUTER ANALYST SUPERVISOR, Fallon Attending Unavailable Esterle, Mita M Primary Care Unavailable [place]ickton COMPUTER ANALYST SUPERVISOR, Fallon Attending Unavailable Esterle, Mita M Primary Care Unavailable Esterle, Mita M Primary Care Unavailable Rebekahton COMPUTER ANALYST SUPERVISOR, Fallon Attending Unavailable Anabel Duvall Attending Unavailable Esterle, Mita M Primary Care Unavailable López Antonio Attending Unavailable Esterle, Mita M Primary Care Unavailable Esterle, Mita M Primary Care Unavailable Anabel Duvall Attending Unavailable Esterle, Mita M Primary Care Unavailable Rebekahton COMPUTER ANALYST SUPERVISOR, Fallon Attending Unavailable Esterle, Mita M Primary [...] adverse reactions 9 Shortness of breath [facility] (1 source) Ticagrelor Drug Allergy 4 [facility] Repository Medications Current Medications Medication Drug Class(es) [...] PO DAILY October 18, 2018 9:36am nystatin 513020 unt/ml oral suspension (3 sources) Polyene Antifungal Start: 05-13-2022 Nystatin Active 075483 UNIT PO EVERY 6 HOURS 56 7 [...] release tablet 2.5 mg polyethylene glycol 3350 67285 mg powder for oral solution (6 sources) [...] 2100 Start: 12-29-2021 take 1 capsule by [facility] twice daily Rivastigmine Tartrate 3 mg capsule [...] 1 tablet by mouth once daily therapeutic multivitamin-gang miner als (Theragran-M) tablet Take 1 tablet [...] dose on Micheline 09/15/18 at 2100 B Hpwrhqz-I-Kyyf TABS (1 source) End: 09-15-2018 take 1 tablet by mouth once daily B Ayiwoez-G-Erme TABS Take 1 tablet by mouth daily [...] hydrochloride 10 mg oral tablet (20 sources) V-juycgv-F-aspart ate Receptor Antagonist Start: 05-12-2022 End: 07-23-2023 [...] heart disease (20 sources) Coronary arteriosclerosis in [place] artery; Translations: [Coronary atherosclerosis] Onset: 9 09-18-2018 [...] aftercare (20 sources) Patient encounter status; Translations: [assisted (current) use of antithrombotics/antip latelets] Onset: 02-12-2019 02-12-2019 Episodic Other aftercare (6 sources) Long-term current use of drug therapy; Translations: [assisted (current) use of antithrombotics/antip latelets] Onset: 02-12-2019 [...] Auto (Unsp spec) [#/Vol] 1.40 10*3/uL 0.83-4.51 [facility] Absolute neutrophil countOrd ered By: Anabel Duvall on 06-12-2024 Neutrophils (Bld) [#/Vol] 2.6 10*3/uL 2.0-7.7 [facility] Anion gap in Serum or Plasma Ordered By: Anabel Duvall on 06-12-2024 Anion gap [Moles/Vol] 10 mmol/L 5-15 [facility] Automated lymphocyte count a s percentage of total leukocytesOrdered By: Anabel Duvall on 06-12-2024 Lymphocytes/100 WBC Auto (Unsp spec) 30.2 % 19-41 [facility] BUN/creatinine ratioOrdered By: Anabel Duvall on 06-12-2024 Urea nitrogen/Creatinine [Mass ratio] 22.8 mg/mg High 10-20 [facility] Basophil percentageOrdered B y: Anabel Duvall on 06-12-2024 Basophils/100 WBC (Bld) 1.1 % High 0-1 [facility] Bilirubin, totalOrdered By: Anabel Duvall on 06-12-2024 Bilirubin [Mass/Vol] 0.40 mg/dL 0.00-1.30 [facility] Calculated very low density lipoprotein (VLDL) cholesterol measurementOrdered By: Anabel Duvall on 06-12-2024 Calculated very low density lipoprotein (VLDL) cholesterol measurement 15 mg/dL 5-40 [facility] Carbon dioxide, total [Moles /volume] in Central venous bloodOrdered By: Anabel Duvall on 06-12-2024 CO2 [Moles/Vol] 25.5 mmol/L 21.0-32.0 [facility] Chloride assayOrdered By: Luna Duvall on 06-12-2024 Chloride [Moles/Vol] 103 mmol/L 98-108 [facility] Eosinophil percentageOrdered By: Anabel Duvall on 06-12-2024 Eosinophils/100 WBC (Bld) 5.0 % 0-5 [facility] Erythrocyte distribution wid th ratioOrdered By: Anabel Duvall on 06-12-2024 Erythrocyte distribution width (RBC) [Ratio] 13.8 % 11.6-14.6 [facility] Erythrocyte distribution wid th standard deviationOrdered By: Anabel Duvall on 06-12-2024 Erythrocyte distribution width (RBC) [Ratio] 43.5 fl 35.1-43.9 [facility] Glomerular filtration rate ( GFR) estimation/1.73 sq m using serum, plasma, or whole bOrdered By: Anabel Duvall on 06-12-2024 GFR/1.73 sq M.predicted among non-blacks MDRD (S/P/Bld) [Vol rate/Area] 62 mL/min/{1.73_m2} >60 [facility] Comment on above: mL/min/1.73m2 CKD-EP I Creatinine Equation (2020) Hematocrit Auto (Bld) [Volum e fraction]Ordered By: Anabel Duvall on 06-12-2024 Hematocrit (Bld) [Volume fraction] 30.3 % Low 37-47 [facility] Hemoglobin A1c percentageOrd ered By: Anabel Duvall on 06-12-2024 HbA1c (Bld) [Mass fraction] 6.2 % High <5.7 [facility] Comment on above: Normal < 5.7 % Predi abetic 5.7 - 6.4 % Diabetic >or= 6.5 % Please note range changes. Hemoglobin measurementOrdere d By: Anabel Duvall on 06-12-2024 Hemoglobin (Bld) [Mass/Vol] 9.9 g/dL Low 12.0-15.0 [facility] Immature granulocytes/100 WB C Auto (Bld)Ordered By: Anabel Duvall on 06-12-2024 Immature granulocytes/100 WBC (Bld) 0.200 % 0.0-0.9 [facility] Comment on above: IG% - Immature Granu locytes (promyelocytes, myelocytes and metamyelocytes) > 1% indicates that a LEFT SHIFT is Present. LDL calc ser/plasOrdered By: Anabel Duvall on 06-12-2024 Cholesterol in LDL [Mass/Vol] 85 mg/dL [facility] Comment on above: Xxfgppzwvi=591-308 m g/dL & Higher Kwxl=532 mg/dL or greater Laboratory - Chemistry and C hemistry - challengeOrdered By: Anabel Duvall on 06-12-2024 AST [Catalytic activity/Vol] 48 U/L High <32 [facility] MCV (mean corpuscular volume ) determinationOrdered By: Anabel Duvall on 06-12-2024 MCV (RBC) [Entitic vol] 88.1 fL 81-99 [facility] Mean corpuscular hemoglobin (MCH) determinationOrdered By: Anabel Duvall on 06-12-2024 MCH (RBC) [Entitic mass] 28.8 pg 27.0-32.0 [facility] Mean corpuscular hemoglobin concentration (MCHC) determinationOrdered By: Anabel Duvall 06-12-2024 MCHC (RBC) [Mass/Vol] 32.7 g/dL 32-36 [facility] Mean platelet volume determi nationOrdered By: Anabel Duvall on 06-12-2024 Platelet mean volume (Bld) [Entitic vol] 12.3 fL High 6.2-12.0 [facility] Monocyte percentageOrdered B y: Anabel Duvall on 06-12-2024 Monocytes/100 WBC (Bld) 7.8 % 0-10 [facility] Neutrophil percentageOrdered By: Anabel Duvall on 06-12-2024 Neutrophils/100 WBC (Bld) 55.7 % 47-70 [facility] Nucleated red blood cell per centageOrdered By: Anabel Duvall on 06-12-2024 Nucleated RBC/100 WBC (Bld) [Ratio] 0 % 0-5 [facility] Platelet countOrdered By: Lnua Duvall on 06-12-2024 Platelets (Bld) [#/Vol] 163 10*3/uL 150-450 [facility] Potassium measurement (mass/ volume)Ordered By: Anabel Duvall on 06-12-2024 Potassium (Unsp spec) [Mass/Vol] 3.7 mmol/L 3.3-5.1 [facility] RBC Auto (Bld) [#/Vol]Ordere d By: Anabel Duvall on 06-12-2024 RBC (Bld) [#/Vol] 3.44 10*6/uL Low 4.2-5.4 [facility] Screening total cholesterol/ high density lipoprotein (HDL) cholesterol ratioOrdered By: Anabel Duvall on 06-12-2024 Cholesterol.total/Chol esterol in HDL [Mass ratio] 2.87 {ratio} [facility] Serum creatinine measurement (mass/volume)Ordered By: Anabel Duvall on 06-12-2024 Creatinine [Mass/Vol] 0.92 mg/dL 0.70-1.20 [facility] Serum globulin measurementOr dered By: Anabel Duvall on 06-12-2024 Globulin (S) [Mass/Vol] 4.1 g/dL 2.2-4.2 [facility] Serum glucose measurement (m ass/volume)Ordered By: Anabel Duvall on 06-12-2024 Glucose [Mass/Vol] 98 mg/dL 70-99 [facility] Serum or plasma alanine gtz otransferase (ALT) measurementOrdered By: Albarojono Maddengracejuana on 06-12-2024 ALT [Catalytic activity/Vol] 28 U/L <35 [facility] Serum or plasma albumin blanco urement (mass/volume)Ordered By: Albarojono Maddengracejuana 06-12-2024 Albumin [Mass/Vol] 3.2 g/dL Low 3.4-4.8 [facility] Serum or plasma albumin/glob ulin mass ratioOrdered By: Lunajulijono Maddenjuana 06-12-2024 Albumin/Globulin [Mass ratio] 0.8 {ratio} Low 0.9-2.4 [facility] Serum or plasma alkaline javier sphatase measurementOrdered By: Albarojono Maddengracejuana 06-12-2024 ALP [Catalytic activity/Vol] 323 U/L High 35-104 [facility] Serum or plasma calcium blanco urement (mass/volume)Ordered By: Albarojono Maddengracejuana 06-12-2024 Calcium [Mass/Vol] 9.1 mg/dL 7.6-11.0 [facility] Serum or plasma cholesterol in HDL measurement (mass/volume)Ordered By: Albarojono Maddengracejuana 06-12-2024 Cholesterol in HDL [Mass/Vol] 53 mg/dL >40 [facility] Comment on above: National Cholesterol Education Program (NCEP) guidelines:<40 mg/dL: Low HDL-cholesterol (major risk factor for CHD)>= 60 mg/dL: High HDL-cholesterol (negative risk factor for CHD)HDL-cholesterol is affected by a number of factors, e.g. smoking, exercise, hormones, sex and age. Serum or plasma cholesterol measurement (mass/volume)Ordered By: Albarojono Maddengracejuana 06-12-2024 Cholesterol [Mass/Vol] 153 mg/dL <201 [facility] Comment on above: Cholesterol level, D esirable <200 mg/dLBorderline high cholesterol 200-239 mg/dLHigh cholesterol >=240 mg/dLRecommendations of the NCEP Adult Treatment Panel for the following risk-cutoff thresholds for the [place] population. Serum or plasma urea nitroge n measurement (mass/volume)Ordered By: Anabel Chanogracejuana on 06-12-2024 Urea nitrogen [Mass/Vol] 21 mg/dL High 4-19 [facility] Sodium levelOrdered By: Chino Martinezjuana on 06-12-2024 Sodium [Moles/Vol] 139 mmol/L 133-145 [facility] Total proteinOrdered By: Shan Duvall on 06-12-2024 Protein [Mass/Vol] 7.4 g/dL 5.9-8.4 [facility] Triglycerides measurementOrd ered By: Anabel Chanolito on 06-12-2024 Triglyceride [Mass/Vol] 75 mg/dL <199 [facility] Comment on above: The drugs N-Acetylcy steine and Metamizole may falsely depress this assay. Normal range: <150 mg/dLBorderline High: 150-199 mg/dLHigh: 200-499 mg/dLVery High: >500 mg/dL White blood cell (WBC) count Ordered By: Anabel Chanogracejuana on 06-12-2024 WBC (Bld) [#/Vol] 4.6 10*3/uL 4.4-11.0 [facility] Absolute lymphocyte countOrd ered By: Anabel Chanogracejuana on 03-16-2024 Lymphocytes Auto (Unsp spec) [#/Vol] 1.69 10*3/uL 0.83-4.51 [facility] Absolute neutrophil countOrd ered By: Anabel Martinezjuana on 03-16-2024 Neutrophils (Bld) [#/Vol] 2.5 10*3/uL 2.0-7.7 [facility] Albumin to globulin ratioOrd ered By: Anabel Duvall on 03-16-2024 Albumin/Globulin [Mass ratio] 0.5 {ratio} Low 0.9-2.4 [facility] Automated lymphocyte count a s percentage of total leukocytesOrdered By: Albarojono Maddengracejuana on 03-16-2024 Lymphocytes/100 WBC Auto (Unsp spec) 35.0 % 19-41 [facility] Basophil percentageOrdered B y: Efnav Duvall on 03-16-2024 Basophils/100 WBC (Bld) 0.8 % 0-1 [facility] Bilirubin, totalOrdered By: Anabel Duvall on 03-16-2024 Bilirubin [Mass/Vol] 0.30 mg/dL 0.20-1.00 [facility] Comment on above: For patients on eltr ombopag therapy, use of Dimension [place] TBIL is not recommended. Blood urea nitrogen (BUN)/cr eatinine ratioOrdered By: Anabel Duvall on 03-16-2024 Urea nitrogen/Creatinine [Mass ratio] 25.9 mg/mg High 10-20 [facility] Carbon dioxide measurementOr dered By: Anabel Duvall on 03-16-2024 CO2 [Moles/Vol] 29.0 mmol/L 21.0-32.0 [facility] Chloride measurementOrdered By: Anabel Duvall on 03-16-2024 Chloride [Moles/Vol] 104 mmol/L 98-107 [facility] Eosinophil percentageOrdered By: Anabel Duvall on 03-16-2024 Eosinophils/100 WBC (Bld) 3.3 % 0-5 [facility] Erythrocyte distribution wid th ratioOrdered By: Anabel Duvall on 03-16-2024 Erythrocyte distribution width (RBC) [Ratio] 13.3 % 11.6-14.6 [facility] Erythrocyte distribution wid th standard deviationOrdered By: Anabel Duvall on 03-16-2024 Erythrocyte distribution width (RBC) [Ratio] 45.3 fl High 35.1-43.9 [facility] Glomerular filtration rate ( GFR) estimationOrdered By: Anabel Duvall on 03-16-2024 GFR/1.73 sq M.predicted among non-blacks MDRD (S/P/Bld) [Vol rate/Area] 62 mL/min/{1.73_m2} >60 [facility] Comment on above: Non- GFR Calc Glucose measurementOrdered B y: Anabel Duvall on 03-16-2024 Glucose [Mass/Vol] 104 mg/dL 74-106 [facility] Comment on above: Fasting Glucose resu lt from 100 to 125 mg/dL suggests IMPAIRED HOMEOSTASIS per A.D.A. criteria. Hematocrit Auto (Bld) [Volum e fraction]Ordered By: Anabel Duvall on 03-16-2024 Hematocrit (Bld) [Volume fraction] 33.5 % Low 37-47 [facility] Hemoglobin A1c percentageOrd ered By: Anabel Duvall on 03-16-2024 HbA1c (Bld) [Mass fraction] 4.8 % 3.8-5.6 [facility] Comment on above: Normal < 5.7 % Predi abetic 5.7 - 6.4 % Diabetic >or= 6.5 % Please note range changes. Hemoglobin measurementOrdere d By: Anabel Duvall on 03-16-2024 Hemoglobin (Bld) [Mass/Vol] 10.6 g/dL Low 12.0-15.0 [facility] Immature granulocytes/100 WB C Auto (Bld)Ordered By: Anabel Duvall on 03-16-2024 Immature granulocytes/100 WBC (Bld) 0.200 % 0.0-0.9 [facility] Comment on above: IG% - Immature Granu locytes (promyelocytes, myelocytes and metamyelocytes) > 1% indicates that a LEFT SHIFT is Present. Laboratory - Chemistry and C hemistry - challengeOrdered By: Anabel Duvall on 03-16-2024 AST [Catalytic activity/Vol] 63 U/L High 15-37 [facility] MCV (mean corpuscular volume ) determinationOrdered By: Anabel Duvall on 03-16-2024 MCV (RBC) [Entitic vol] 92.0 fL 81-99 [facility] Mean corpuscular hemoglobin (MCH) determinationOrdered By: Anabel Duvall on 03-16-2024 MCH (RBC) [Entitic mass] 29.1 pg 27.0-32.0 [facility] Mean corpuscular hemoglobin concentration (MCHC) determinationOrdered By: Anabel Duvall on 03-16-2024 MCHC (RBC) [Mass/Vol] 31.6 g/dL Low 32-36 [facility] Mean platelet volume determi nationOrdered By: Anabel Duvall on 03-16-2024 Platelet mean volume (Bld) [Entitic vol] 12.6 fL High 6.2-12.0 [facility] Monocyte percentageOrdered B y: Anabel Duvall on 03-16-2024 Monocytes/100 WBC (Bld) 9.1 % 0-10 [facility] Neutrophil percentageOrdered By: Anabel Duvall on 03-16-2024 Neutrophils/100 WBC (Bld) 51.6 % 47-70 [facility] Nucleated red blood cell per centageOrdered By: Anabel Duvall on 03-16-2024 Nucleated RBC/100 WBC (Bld) [Ratio] 0 % 0-5 [facility] Platelet countOrdered By: Luna Duvall on 03-16-2024 Platelets (Bld) [#/Vol] 183 10*3/uL 150-450 [facility] Potassium measurementOrdered By: Anabel Duvall on 03-16-2024 Potassium [Moles/Vol] 4.2 mmol/L 3.5-5.1 [facility] RBC Auto (Bld) [#/Vol]Ordere d By: Anabel Duvall on 03-16-2024 RBC (Bld) [#/Vol] 3.64 10*6/uL Low 4.2-5.4 [facility] Serum anion gap measurementO rdered By: Anabel Duvall on 03-16-2024 Anion gap [Moles/Vol] 6 mmol/L 5-15 [facility] Serum globulin measurementOr dered By: Anabel Duvall on 03-16-2024 Globulin (S) [Mass/Vol] 5.3 g/dL High 2.2-4.2 [facility] Serum or plasma alanine gtz otransferase (ALT) measurementOrdered By: Anabel Duvall on 03-16-2024 ALT [Catalytic activity/Vol] 51 U/L 13-56 [facility] Serum or plasma albumin blanco urement (mass/volume)Ordered By: Anabel Duvall on 03-16-2024 Albumin [Mass/Vol] 2.9 g/dL Low 3.2-5.0 [facility] Serum or plasma alkaline javier sphatase measurementOrdered By: Anabel Duvall on 03-16-2024 ALP [Catalytic activity/Vol] 290 U/L High 45-117 [facility] Serum or plasma calcium blanco urement (mass/volume)Ordered By: Anabel Duvall on 03-16-2024 Calcium [Mass/Vol] 9.6 mg/dL 8.5-10.1 [facility] Serum or plasma creatinine m easurement (mass/volume)Ordered By: Anabel Duvall on 03-16-2024 Creatinine [Mass/Vol] 0.93 mg/dL 0.55-1.02 [facility] Comment on above: The validity of the calculated GFR & GFRAA in patients over 70 years has not been determined. Clinical correlation is essential. Serum or plasma urea nitroge n measurement (mass/volume)Ordered By: Anabel Duvall on 03-16-2024 Urea nitrogen [Mass/Vol] 24 mg/dL High 7-18 [facility] Sodium levelOrdered By: Chino Duvall on 03-16-2024 Sodium [Moles/Vol] 139 mmol/L 136-145 [facility] Total proteinOrdered By: Shan Duvall on 03-16-2024 Protein [Mass/Vol] 8.2 g/dL 6.4-8.2 [facility] White blood cell (WBC) count Ordered By: Anabel Duvall on 03-16-2024 WBC (Bld) [#/Vol] 4.8 10*3/uL 4.4-11.0 [facility] MR Abdomen WO and W contrast Verito [...] findings was made to MITA MORTON via [employer] Secure Chat on 12/24/2023 9:32 AM EST. Report Dictated on Electronically Signed By: Jovi Davis MD Electronically Signed Date/Time: 12/24/2023 9:33 AM EST [facility] [facility] Patient Name: PREMA VILLALPANDO : [...] study but measures at least 3.4 cm [facility] Jovi Davis MD - 12/24/2023 [...] findings was made to MITA MORTON via [employer] Chat on 12/24/2023 9:32 AM EST. Report Dictated on Electronically Signed By: Jovi Davis MD Electronically Signed Date/Time: 12/24/2023 9:33 AM EST [facility] MR Abdomen WO and W contrast IVOrdered By: Jovi Davis on 12-24-2023 [facility] Work Phone: MR Abdomen WO and W contrast Verito 12-20-2023 Radiology Study observation (narrative) [facility] Chest PA and Lateralon 11-21 Chest PA and Lateral [facility] Imaging Services [address] [place] [address] [id number] Chest PA and Lateral MR#: [id number] Acct: [id number] Name: PREMA VILLALPANDO Rep #: [id number] : 1940 F 83 From: Barak Cheema MD PCP: Mita Morton DO Status: REG CLI Study: Chest PA and Lateral Date of Exam: 11/22/23 Exam# [id number] Ordering Dr: Erich Hernandez PA PA [id number] STUDY: X-RAY CHEST REASON FOR EXAM: Female, [...] 18:56 EDT Reading Location ID and State: [facility] / [place] Tel , Service support , CC: Mita Morton DO; MACK Abbott Director Of 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 [employer]: Signed Normal [facility] Urgent Care Visit Reporton 1 Urgent Care Visit Report [facility] [address], [address] [place] [address] OFFICE VISIT Date of Service: 11/22/23 MR#: [id number] Acct: [id number] Name: PREMA VILLALPANDO Rep #: [id number] : 1940 Provider: MACK Abbott Age/Sex: 83/F Location: [facility] Status: Signed Intake Vital Signs 07/30/23 06:06 [...] Paroxysmal atrial fibrillation Atherosclerotic heart disease of [place] coronary artery without angina pectoris Persistent atrial [...] no acute distress Orientation: alert and awake [facility] Head: normal to inspection Ears: hearing grossly [...] to inspection (more content not included)... Normal [facility] US ABDOMEN LIMITEDon 024 US ABDOMEN LIMITED [...] Electronically Signed Date/Time: 11/12/2023 7:58 AM EDT [facility] US Abdomen limitedon 024 1. Heterogeneous and [...] Electronically Signed Date/Time: 11/12/2023 7:58 AM EDT [facility] 1940 [id number] Exam Date/Time: 11/11/2023 09:18 Procedure: US ABDOMEN [...] mass or hydronephrosis. Ascites: Trace perihepatic ascites [facility] Jovi Davis MD - 11/12/2023 Patient Name: PRE[facility]PAND[facility] : 1940 [id number] Exam Date/Time: 11/11/2023 09:18 Procedure: US ABDOMEN [...] Electronically Signed Date/Time: 11/12/2023 7:58 AM EDT [facility] US Abdomen limitedOrdered By : Jovi Davis on 11-12-2023 [facility] Work Phone: US Abdomen limitedon 024 Radiology Study observation (narrative) [facility] ECG 12 leadon 08-18-2023 NSR with PAC's Low voltage in limb leads. -Nonspecific T-abnormality. ABNORMAL [facility] Office Visiton 08-18-2023 Follow-up visit [id number] Jayna Villalpando 1940 F Date Provider Department Center 08/18/2023 [id number]-URMNOTONI BEY [facility] Kira Family History Problem Relation Age of Onset High Blood Pressure Mother Heart disease Brother Cancer Brother Coronary artery disease Brother High Blood Pressure Brother Diabetes Brother Family Status - Relation Status Age at Mother Father Brother Level of Service:35216 CT OFFICE/OUTPATIENT ESTABLISHED MOD MDM 30 MIN Reason for Visit and Comments: 1 Year Follow-up [670] Coronary Artery Disease [187] Normal [facility] Progress Noteon 08-18-2023 Progress Note [facility] [address] [facility] [address] Dept: [phone] Dept Visit type: Established : 1940 Chief [...] 1989 UPPER GASTROINTESTINAL ENDOSCOPY 08/08/2018 Dr [facility] Family History Family History Problem Relation Name [...] @LASTCMP@ Lab Resul (more content not included)... [facility] 07-27-2023 36 Form signed and faxe d back to [phone]. Form uploaded to [employer]. [facility] 07-23-2023 36 Received form from [facility] for cardiac clearance for EGD with MAC sedation. Form and last OV given to nurse. [facility] 36on 07-20-2023 36 S: Patient's rianna Catalan spoke with [facility] nurse regarding fall. B: Onset of symptoms/concern [...] [2] no injury Protocols used: Falls and [id number] Normal [facility] Bacteria identified Cx Nom ( U)Ordered By: Fallon Lopez on 05-13-2023 Interpretation and review of laboratory results Normal [facility] [facility] (clean catch)O rdered By: Fallon Lopez on 05-13-2023 Bacteria identified Cx Nom (U) Normal urogenital nayeli present [facility] COMPLETE URINALYSISon 2023 BACTERIA (#/HPF) IN URINE Moderate Abnormal Negative [facility] Comment on above: Performed By: #### L [id number] #### Settlement Clerk: YAZ MAURER ([phone]) [facility] DARRIUS [employer] (SWRLAB) [address] [place] [address] BILIRUBIN, TOTAL PRESENCE IN URINE Negative Normal Negative [facility] Comment on above: Performed By: #### L [id number] #### Settlement Clerk: YAZ MAURER ([phone]) [facility] D[facility]RIUS [employer] (SWRL[place]) [address] [place] [address] Clarity (U) Clear Normal Clear [facility] Comment on above: Performed By: #### L [id number] #### Settlement Clerk: YAZ MAURER ([phone]) [facility] DARRIUS [employer] (SWRLAB) [address] [place] [address] [place] Color (U) Light Yellow Normal Lt. Yellow [facility] Comment on above: Performed By: #### L [id number] #### Settlement Clerk: YAZ MAURER ([phone]) [facility] (SWRLAB) [address] [place] [address] [place] GLUCOSE (MG/DL) IN URINE Normal Normal Normal (<70) [facility] Comment on above: Performed By: #### L [id number] #### Settlement Clerk: YAZ MAURER ([phone]) [facility] (SWRL[place]) [address] [place] [address] HEMOGLOBIN PRESENCE IN URINE Negative Normal Negative [facility] Comment on above: Performed By: #### L [id number] #### Settlement Clerk: YAZ MAURER ([phone]) [facility] ([place]) [address] [place] [address] [place] HYALINE CASTS (#/LPF) IN URINE SEDIMENT BY MICROSCOPY 6-10 Abnormal Negative [facility] Comment on above: Performed By: #### L [id number] #### Settlement Clerk: YAZ MAURER ([phone]) [facility] ([place]) [address] [place] [address] [place] Ketones Ql (U) Negative Normal Negative [facility] Comment on above: Performed By: #### L [id number] #### Settlement Clerk: YAZ MAURER ([phone]) [facility] ([place]) [address] [place] [address] [place] LEUKOCYTE ESTERASE PRESENCE IN URINE BY TEST STRIP 25 Xavier/uL Abnormal Negative [facility] Comment on above: Performed By: #### L [id number] #### Settlement Clerk: YAZ MAURER ([phone]) [facility] ([place]) [address] [place] [address] [place] NITRITE PRESENCE IN URINE Negative Normal Negative [facility] Comment on above: Performed By: #### L [id number] #### Settlement Clerk: YAZ MAURER ([phone]) [facility] ([place]) [address] [place] [address] pH (U) 5.0 [pH] Normal 5.0-8.0 [facility] Comment on above: Performed By: #### L [id number] #### Settlement Clerk: YAZ MAURER ([phone]) [facility] ([place]) [address] [place] [address] Protein (U) [Mass/Vol] Negative Normal Negative [facility] Comment on above: Performed By: #### L [id number] #### Settlement Clerk: YAZ MAURER ([phone]) [facility] ([place]) [address] [place] [address] [place] RBC (#/HPF) IN URINE SEDIMENT Negative Normal 0-2 [facility] Comment on above: Performed By: #### L [id number] #### Settlement Clerk: YAZ MAURER ([phone]) [facility] ([place]) [address] [place] [address] Specific gravity (U) [Rel density] 1.013 Normal 1.005-1.030 [facility] Comment on above: Performed By: #### L [id number] #### Settlement Clerk: YAZ MAURER ([phone]) [facility] ([place]) [address] [place] [address] Specimen volume (U) 12 mL Normal [facility] Comment on above: Performed By: #### L [id number] #### Settlement Clerk: YAZ MAURER ([phone]) [facility] (SW[place]) [address] [place] [address] [place] SQUAMOUS EPITHELIAL CELLS (#/HPF) IN URINE SEDIMENT Negative Normal 3-5 [facility] Comment on above: Performed By: #### L [id number] #### Settlement Clerk: YAZ MAURER ([phone]) [facility] CITLALLITMAN (SWRLAB) [address] [place] [address] [place] UROBILINOGEN (MG/DL) IN URINE Normal Normal Normal (0-1) [facility] Comment on above: Performed By: #### L [id number] #### Settlement Clerk: YAZ MAURER ([phone]) [facility] [address] [place] [address] WBC (LEUKOCYTE) (#/HPF) IN URINE SEDIMENT 0-2 Normal 0-5 [facility] Comment on above: Performed By: #### L [id number] #### Settlement Clerk: YAZ MAURER ([phone]) [facility] (SWRLAB) [address] [place] [address] URINE CULTUREon 05-11-2023 Bacteria identified Cx Nom (U) URINE CULTURE Reference Normal urogenital nayeli present [ S = SUSCEPTIBLE R = RESISTANT I = INTERMEDIATE S-DD = Susceptible-dose dependent NS = Non-susceptible NO = No Interpretation ] Normal [facility] Comment on above: Performed By: #### L [id number] #### Settlement Clerk: YAZ MAURER ([phone]) [facility] [address] [place] [address] Urinalysis complete panel (U )Ordered By: Antoine Cedeno on 05-11-2023 Bacteria LM.HPF (Urine sed) [#/Area] Moderate Abnormal Negative /HPF [facility] Bilirubin Ql (U) Negative Negative mg/dL [facility] Clarity (U) Clear Clear [facility] Color (U) Light Yellow Lt. Yellow [facility] Epithelial cells.squamous LM.HPF (Urine sed) [#/Area] Negative [facility] Glucose Ql (U) Normal Normal (<70) mg/dL [facility] Hemoglobin Ql (U) Negative Negative mg/dL [facility] Hyaline casts Auto (Urine sed) [#/Area] 6-10 Abnormal Negative /LPF [facility] Interpretation and review of laboratory results Abnormal [facility] Ketones (U) [Mass/Vol] Negative Negat brook mg/dL [facility] Leukocyte esterase Test strip Ql (U) 25 Abnormal Negative Xavier/uL [facility] Nitrite Ql (U) Negative Negative [facility] pH (U) 5.0 [pH] 5.0 - 8.0 pH [facility] Protein (U) [Mass/Vol] Negative Negat brook mg/dL [facility] RBC LM.HPF (Urine sed) [#/Area] Negative [facility] Specific gravity (U) [Rel density] 1.013 1.005 - 1.030 [facility] Urobilinogen (U) [Mass/Vol] Normal Normal (0-1) mg/dL [facility] Volume, Urine 12 mL [facility] WBC LM.HPF (Urine sed) [#/Area] 0-2 [facility] 36on 04-14-2023 36 Patient is scheduled to see JDR on 08/18/23. Normal [facility] 36on 04-12-2023 36 BEATRIS: 08/25/22, Labs: 09/24/22 Normal [facility] US Abdomenon 10-29-2022 1. Unremarkable postcholecystectomy ultrasound of the abdomen as discussed --- unchanged since prior study 4.5 months ago (heterogeneous echogenicity of the liver without focal lesions). Report Dictated on Electronically Signed By: Rufus Miller MD Electronically Signed Date/Time: 10/29/2022 4:15 PM [facility] Patient Name: PREMA VILLALPANDO : 1940 [...] inferior vena cava are within normal limits. [facility] Rufus Miller MD - 10/29/2022 [facility] Name[facility] 1940 [id number] Exam Date/Time: 10/28/2022 09:48 Procedure: US ABDOMEN [...] Electronically Signed Date/Time: 10/29/2022 4:15 PM EDT [employer] US AbdomenOrdered By: Jero Miller on 10-29-2022 [employer] Work Phone: US Abdomenon 10-28-2022 Radiology Study observation (narrative) [facility] Comprehensive metabolic 1998 panelon 09-24-2022 Albumin [Mass/Vol] 4.2 g/dL 3.5 - 5.0 g/dL [facility] ALP [Catalytic activity/Vol] 211 U/L High 38 - 126 U/L [facility] ALT [Catalytic activity/Vol] 82 U/L High 0 - 34 U/L [facility] Anion gap [Moles/Vol] 3 mmol/L 3 - 13 mmol/L [facility] AST [Catalytic activity/Vol] 103 U/L High 15 - 46 U/L [facility] Bilirubin [Mass/Vol] 0.4 mg/dL 0.2 - 1 .3 mg/dL [facility] Calcium [Mass/Vol] 9.5 mg/dL 8.4 - 10. 4 mg/dL [facility] Chloride [Moles/Vol] 106 mmol/L 98 - 10 7 mmol/L [facility] CO2 [Moles/Vol] 32 mmol/L High 22 - 30 mmol/L [facility] Creatinine [Mass/Vol] 0.85 mg/dL 0.52 - 1.04 mg/dL [facility] GFR/1.73 sq M.predicted MDRD (S/P/Bld) [Vol rate/Area] 69.8 mL/min/{1.73_m2} - PINF [facility] Comment on above: Calculation based on the Chronic Kidney Disease Epidemiology Collaboration (CKD-EPI) equation refit without adjustment for race Glucose [Mass/Vol] 108 mg/dL High 70 - 100 mg/dL [facility] Potassium [Moles/Vol] 4.2 mmol/L 3.5 - 5.1 mmol/L [facility] Protein [Mass/Vol] 8.5 g/dL High 6.3 - 8.2 g/dL [facility] Sodium [Moles/Vol] 142 mmol/L 135 - 145 mmol/L [facility] Urea nitrogen [Mass/Vol] 18 mg/dL High 7 - 17 mg/dL [facility] Lipid 1996 panelon 3 Cholesterol [Mass/Vol] 143 mg/dL NINF - 200 mg/dL [facility] Cholesterol in HDL [Mass/Vol] 61 mg/dL High 40 - 60 mg/dL [facility] Cholesterol in LDL [Mass/Vol] 73 mg/dL 0 - <100 [facility] Cholesterol.total/Chol esterol in HDL [Mass ratio] 2 {ratio} [facility] Comment on above: Ref Range: < 3 Low Risk for CHD 3-6 Mod Risk for CHD > 6 High Risk for CHD Triglyceride [Mass/Vol] 45 mg/dL NINF - 150 mg/dL [facility] No Panel Informationon 09-24 Interpretation and review of laboratory results Abnormal [facility] Basic metabolic 1998 panelon 09-14-2022 Anion gap [Moles/Vol] 8 mmol/L 3 - 13 mmol/L [facility] Calcium [Mass/Vol] 9.2 mg/dL 8.4 - 10. 4 mg/dL [facility] Chloride [Moles/Vol] 102 mmol/L 98 - 10 7 mmol/L [facility] CO2 [Moles/Vol] 31 mmol/L High 22 - 30 mmol/L [facility] Creatinine [Mass/Vol] 0.92 mg/dL 0.52 - 1.04 mg/dL [facility] GFR/1.73 sq M.predicted MDRD (S/P/Bld) [Vol rate/Area] 63.5 mL/min/{1.73_m2} - PINF [facility] Comment on above: Calculation based on the Chronic Kidney Disease Epidemiology Collaboration (CKD-EPI) equation refit without adjustment for race Glucose [Mass/Vol] 139 mg/dL High 70 - 100 mg/dL [facility] Interpretation and review of laboratory results Abnormal [facility] Potassium [Moles/Vol] 4.1 mmol/L 3.5 - 5.1 mmol/L [facility] Sodium [Moles/Vol] 140 mmol/L 135 - 145 mmol/L [facility] Urea nitrogen [Mass/Vol] 23 mg/dL High 7 - 17 mg/dL [facility] No Panel Informationon 08-25 [facility] Absolute lymphocyte countOrd ered By: Anabel Duvall on 07-09-2022 Lymphocytes Auto (Unsp spec) [#/Vol] 1.56 10*3/uL 0.83-4.51 [facility] Basophil percentageOrdered B y: Anabel Duvall on 07-09-2022 Basophils/100 WBC (Bld) 1.2 % 0-1 [facility] Chloride [Moles/Vol] 111 mmol/L 98-[address] [facility] [address] [facility] Eosinophils/100 WBC (Bld) 3.2 % 0-5 [facility] Glucose [Mass/Vol] 115 mg/dL 74-106 [facility] Comment on above: Fasting Glucose resu lt from 100 to 125 mg/dL suggests IMPAIRED HOMEOSTASIS per A.D.A. criteria. Neutrophils (Bld) [#/Vol] 2.8 10*3/uL 2.0-7.7 [facility] Neutrophils/100 WBC (Bld) 56.0 % 47-70 [facility] Potassium [Moles/Vol] 4.3 mmol/L 3.5-5.1 [facility] Sodium [Moles/Vol] 144 mmol/L 136-145 [facility] WBC (Bld) [#/Vol] 5.1 10*3/uL 4.4-11.0 [facility] Blood erythrocytes count (nu mber/volume)Ordered By: Anabel Duvall on 07-09-2022 RBC (Bld) [#/Vol] 3.60 10*6/uL 4.2-5.4 [facility] Blood hemoglobin measurement (mass/volume)Ordered By: Anabel Duvall on 07-09-2022 Hemoglobin (Bld) [Mass/Vol] 10.0 g/dL 12.0-15.0 [facility] Blood lymphocytes/100 leukoc ytesOrdered By: Anabel Duvall on 07-09-2022 Lymphocytes/100 WBC (Bld) 30.9 % 19-41 [facility] Blood monocytes/100 leukocyt esOrdered By: Anabel Duvall on 07-09-2022 Monocytes/100 WBC (Bld) 8.5 % 0-10 [facility] Blood platelet mean volumeOr dered By: Anabel Duvall on 07-09-2022 Platelet mean volume (Bld) [Entitic vol] 12.2 fL 6.2-12.0 [facility] Determination of erythrocyte mean corpuscular volume (MCV)Ordered By: Anabel Duvall on 07-09-2022 MCV (RBC) [Entitic vol] 91.1 fL 81-99 [facility] Hematocrit Auto (Bld) [Volum e fraction]Ordered By: Anabel Duvall on 07-09-2022 Hematocrit (Bld) [Volume fraction] 32.8 % 37-47 [facility] Laboratory - Chemistry and C hemistry - challengeOrdered By: Anabel Duvall on 07-09-2022 CO2 [Moles/Vol] 31.0 mmol/L 21.0-32.0 [facility] Urea nitrogen/Creatinine [Mass ratio] 35.1 mg/mg 10-20 [facility] Laboratory - Hematology and Cell countsOrdered By: Anabel Duvall on 07-09-2022 Erythrocyte distribution width (RBC) [Entitic vol] 62.8 fL 35.1-43.9 [facility] Erythrocyte distribution width (RBC) [Ratio] 19.1 % 11.6-14.6 [facility] Immature granulocytes/100 WBC (Bld) 0.200 % 0.0-0.9 [facility] Comment on above: IG% - Immature Granu locytes (promyelocytes, myelocytes and metamyelocytes) > 1% indicates that a LEFT SHIFT is Present. MCH (RBC) [Entitic mass] 27.8 pg 27.0-32.0 [facility] Nucleated RBC/100 WBC (Bld) [Ratio] 0 % 0-5 [facility] MCHC Auto (RBC) [Mass/Vol]Or dered By: Anabel Duvall on 07-09-2022 MCHC (RBC) [Mass/Vol] 30.5 g/dL 32-36 [facility] No Panel InformationOrdered By: Anabel Duvall on 07-09-2022 Estimated GFR (MDRD) Amer 82 mL/min >60 [facility] Comment on above: GFR Calc Estimated GFR (MDRD) Non-Af Amer 68 mL/min >60 [facility] Comment on above: Non- GFR Calc Platelets bldOrdered By: Shan Duvall on 07-09-2022 Platelets (Bld) [#/Vol] 207 10*3/uL 150-450 [facility] Serum or plasma calcium blanco urement (mass/volume)Ordered By: Anabel Duvall on 07-09-2022 Calcium [Mass/Vol] 8.7 mg/dL 8.5-10.1 [facility] Serum or plasma creatinine m easurement (mass/volume)Ordered By: Anabel Duvall on 07-09-2022 Creatinine [Mass/Vol] 0.85 mg/dL 0.55-1.02 [facility] Comment on above: The validity of the calculated GFR & GFRAA in patients over 70 years has not been determined. Clinical correlation is essential. Serum or plasma urea nitroge n measurement (mass/volume)Ordered By: Anabel Duvall on 07-09-2022 Urea nitrogen [Mass/Vol] 30 mg/dL 7-18 [facility] Thin prep Papanicolaou smear with manual screeningOrdered By: Anabel Duvall on 07-09-2022 Thin prep Papanicolaou smear with manual screening 2 5-15 [facility] Basophil percentageOrdered B y: Fallon Mcclendon on 06-26-2022 Ammonia (P) [Moles/Vol] 27.0 umol/L [facility] Absolute lymphocyte countOrd ered By: kunhyshamjono Duvall on 06-25-2022 Lymphocytes Auto (Unsp spec) [#/Vol] 1.27 10*3/uL 0.83-4.51 [facility] Basophil percentageOrdered B y: Anabel Duvall on 06-25-2022 Basophils/100 WBC (Bld) 0.9 % 0-1 [facility] Bilirubin [Mass/Vol] 0.40 mg/dL 0.20-1.00 [facility] Comment on above: For patients on eltr ombopag therapy, use of Dimension [place] TBIL is not recommended. Chloride [Moles/Vol] 111 mmol/L 98-107 [facility] Eosinophils/100 WBC (Bld) 2.0 % 0-5 [facility] Glucose [Mass/Vol] 122 mg/dL 74-106 [facility] Comment on above: Fasting Glucose resu lt from 100 to 125 mg/dL suggests IMPAIRED HOMEOSTASIS per A.D.A. criteria. Neutrophils (Bld) [#/Vol] 4.4 10*3/uL 2.0-7.7 [facility] Neutrophils/100 WBC (Bld) 69.0 % 47-70 [facility] Potassium [Moles/Vol] 3.7 mmol/L 3.5-5.1 [facility] Protein [Mass/Vol] 6.7 g/dL 6.4-8.2 [facility] Sodium [Moles/Vol] 146 mmol/L 136-145 [facility] WBC (Bld) [#/Vol] 6.4 10*3/uL 4.4-11.0 [facility] Blood erythrocytes count (nu mber/volume)Ordered By: Anabel Duvall on 06-25-2022 RBC (Bld) [#/Vol] 3.33 10*6/uL 4.2-5.4 [facility] Blood hemoglobin measurement (mass/volume)Ordered By: Anabel Duvall on 06-25-2022 Hemoglobin (Bld) [Mass/Vol] 9.2 g/dL 12.0-15.0 [facility] Blood lymphocytes/100 leukoc ytesOrdered By: Anabel Duvall on 06-25-2022 Lymphocytes/100 WBC (Bld) 19.8 % 19-41 [facility] Blood monocytes/100 leukocyt esOrdered By: kunhyshamjono Duvall on 06-25-2022 Monocytes/100 WBC (Bld) 8.1 % 0-10 [facility] Blood platelet mean volumeOr dered By: Anabel Duvall on 06-25-2022 Platelet mean volume (Bld) [Entitic vol] 11.9 fL 6.2-12.0 [facility] Determination of erythrocyte mean corpuscular volume (MCV)Ordered By: Anabel Duvall on 06-25-2022 MCV (RBC) [Entitic vol] 89.2 fL 81-99 [facility] Hematocrit Auto (Bld) [Volum e fraction]Ordered By: Anabel Duvall on 06-25-2022 Hematocrit (Bld) [Volume fraction] 29.7 % 37-47 [facility] Laboratory - Chemistry and C hemistry - challengeOrdered By: Anabel Duvall on 06-25-2022 ALP [Catalytic activity/Vol] 240 U/L 45-117 [facility] ALT [Catalytic activity/Vol] 132 U/L 13-56 [facility] CO2 [Moles/Vol] 30.0 mmol/L 21.0-32.0 [facility] Globulin (S) [Mass/Vol] 4.3 g/dL 2.2-4.2 [facility] Urea nitrogen/Creatinine [Mass ratio] 27.6 mg/mg 10-20 [facility] Laboratory - Hematology and Cell countsOrdered By: Anabel Duvall on 06-25-2022 Erythrocyte distribution width (RBC) [Entitic vol] 53.0 fL 35.1-43.9 [facility] Erythrocyte distribution width (RBC) [Ratio] 17.0 % 11.6-14.6 [facility] Immature granulocytes/100 WBC (Bld) 0.200 % 0.0-0.9 [facility] Comment on above: IG% - Immature Granu locytes (promyelocytes, myelocytes and metamyelocytes) > 1% indicates that a LEFT SHIFT is Present. MCH (RBC) [Entitic mass] 27.6 pg 27.0-32.0 [facility] Nucleated RBC/100 WBC (Bld) [Ratio] 0 % 0-5 [facility] MCHC Auto (RBC) [Mass/Vol]Or dered By: Anabel Duvall on 06-25-2022 MCHC (RBC) [Mass/Vol] 31.0 g/dL 32-36 [facility] No Panel InformationOrdered By: Anabel Duvall on 06-25-2022 Estimated GFR (MDRD) Amer 81 mL/min >60 [facility] Comment on above: GFR Calc Estimated GFR (MDRD) Non-Af Amer 67 mL/min >60 [facility] Comment on above: Non- GFR Calc Platelets bldOrdered By: Shan Duvall on 06-25-2022 Platelets (Bld) [#/Vol] 216 10*3/uL 150-450 [facility] Serum or plasma albumin blanco urement (mass/volume)Ordered By: Anabel Duvall on 06-25-2022 Albumin [Mass/Vol] 2.4 g/dL 3.2-5.0 [facility] Serum or plasma albumin/glob ulin mass ratioOrdered By: Anabel Duvall on 06-25-2022 Albumin/Globulin [Mass ratio] 0.6 {ratio} 0.9-2.4 [facility] Serum or plasma calcium blanco urement (mass/volume)Ordered By: Anabel Duvall on 06-25-2022 Calcium [Mass/Vol] 8.0 mg/dL 8.5-10.1 [facility] Serum or plasma creatinine m easurement (mass/volume)Ordered By: Anabel Duvall on 06-25-2022 Creatinine [Mass/Vol] 0.87 mg/dL 0.55-1.02 [facility] Comment on above: The validity of the calculated GFR & GFRAA in patients over 70 years has not been determined. Clinical correlation is essential. Serum or plasma urea nitroge n measurement (mass/volume)Ordered By: Anabel Duvall on 06-25-2022 Urea nitrogen [Mass/Vol] 24 mg/dL 08-25 [facility] Thin prep Papanicolaou smear with manual screeningOrdered By: Anabel Duvall on 06-25-2022 Thin prep Papanicolaou smear with manual screening 163 U/L 15 [facility] Thin prep Papanicolaou smear with manual screening 5 5-15 [facility] Whole blood hemoglobin A1c/t otal hemoglobin ratio (mass fraction)Ordered By: Anabel Duvall on 06-25-2022 HbA1c (Bld) [Mass fraction] 5.7 % 3.8-5.6 [facility] Comment on above: Normal < 5.7 % Predi abetic 5.7 - 6.4 % Diabetic >or= 6.5 % Please note range changes. CBC panel Auto (Bld)Ordered By: Zack Hastings on 06-16-2022 Erythrocyte distribution width (RBC) [Ratio] 14.9 % High 11.5 - 14.5 % [facility] Hematocrit (Bld) [Volume fraction] 28.0 % Low 35.0 - 47.0 % [facility] Hemoglobin (Bld) [Mass/Vol] 9.4 g/dL Low 11.7 - 16.0 g/dL [facility] Interpretation and review of laboratory results Abnormal [facility] MCH (RBC) [Entitic mass] 27.3 pg 26.0 - 34.0 pg [facility] MCHC (RBC) [Mass/Vol] 33.5 % 32.0 - 36.0 % [facility] MCV (RBC) [Entitic vol] 81.5 fL 80.0 - 98.0 fL [facility] Platelet mean volume (Bld) [Entitic vol] 8.7 fL 7.4 - 12.4 fL [facility] Platelets (Bld) [#/Vol] 166 10*3/uL 140 - 440 10*3/uL [facility] RBC (Bld) [#/Vol] 3.44 10*6/uL Low 3.8 - 5.20 10*6/uL [facility] WBC (Bld) [#/Vol] 6.3 10*3/uL 3.6 - 10.7 10*3/uL [facility] Comprehensive metabolic 1998 panelon 06-16-2022 Albumin [Mass/Vol] 2.7 g/dL Low 3.5 - 5.0 g/dL [facility] ALP [Catalytic activity/Vol] 156 U/L High 38 - 126 U/L [facility] ALT [Catalytic activity/Vol] 140 U/L High 0 - 34 U/L [facility] Anion gap [Moles/Vol] 0 mmol/L Low 3 - 13 mmol/L [facility] AST [Catalytic activity/Vol] 167 U/L High 15 - 46 U/L [facility] Bilirubin [Mass/Vol] 0.2 mg/dL 0.2 - 1 .3 mg/dL [facility] Calcium [Mass/Vol] 7.5 mg/dL Low 8.4 - 10. 4 mg/dL [facility] Chloride [Moles/Vol] 108 mmol/L High 98 - 10 7 mmol/L [facility] CO2 [Moles/Vol] 29 mmol/L 22 - 30 mmol/L [facility] Creatinine [Mass/Vol] 0.77 mg/dL 0.52 - 1.04 mg/dL [facility] GFR/1.73 sq M.predicted MDRD (S/P/Bld) [Vol rate/Area] 78.6 mL/min/{1.73_m2} - PINF [facility] Comment on above: Calculation based on the Chronic Kidney Disease Epidemiology Collaboration (CKD-EPI) equation refit without adjustment for race Glucose [Mass/Vol] 92 mg/dL 70 - 100 mg/dL [facility] Interpretation and review of laboratory results Abnormal [facility] Potassium [Moles/Vol] 3.2 mmol/L Low 3.5 - 5.1 mmol/L [facility] Protein [Mass/Vol] 6.4 g/dL 6.3 - 8.2 g/dL [facility] Sodium [Moles/Vol] 138 mmol/L 135 - 145 mmol/L [facility] Urea nitrogen [Mass/Vol] 21 mg/dL High 7 - 17 mg/dL [facility] Laboratory - Microbiology an d Antimicrobial susceptibilityOrdered By: Hazel Harrison on 06-16-2022 SARS-CoV-2 (COVID-19) Ag IA.rapid Ql (Resp) Negative Negative [facility] Comment on above: A negative result do es not rule out the possibility of SARS-CoV-2 infection. NAAT-based methods should be considered for symptomatic patients presenting greater than seven days after onset of symptoms. Method: Lateral flow immunoassay. Fact sheets for healthcare providers and patients can be found at the following sites: https://www.[employer]ob[employer].gov/media/532808/download https://www.[employer].gov/media/485596/download SARS-CoV-2 (COVID-19) Ag IA. rapid Ql (Resp)Ordered By: Hazel Harrison on 06-16-2022 Interpretation and review of laboratory results Normal [facility] [facility] panel Auto (Bld)Ordered By: Kayla Lira on 06-15-2022 Erythrocyte distribution width (RBC) [Ratio] 14.3 % 11.5 - 14.5 % [facility] Hematocrit (Bld) [Volume fraction] 27.5 % Low 35.0 - 47.0 % [facility] Hemoglobin (Bld) [Mass/Vol] 9.1 g/dL Low 11.7 - 16.0 g/dL [facility] Interpretation and review of laboratory results Abnormal [facility] MCH (RBC) [Entitic mass] 27.4 pg 26.0 - 34.0 pg [facility] MCHC (RBC) [Mass/Vol] 33.3 % 32.0 - 36.0 % [facility] MCV (RBC) [Entitic vol] 82.4 fL 80.0 - 98.0 fL [facility] Platelet mean volume (Bld) [Entitic vol] 9.1 fL 7.4 - 12.4 fL [facility] Platelets (Bld) [#/Vol] 165 10*3/uL 140 - 440 10*3/uL [facility] RBC (Bld) [#/Vol] 3.34 10*6/uL Low 3.8 - 5.20 10*6/uL [facility] WBC (Bld) [#/Vol] 6.1 10*3/uL 3.6 - 10.7 10*3/uL [facility] Comprehensive metabolic 1998 panelon 06-15-2022 Albumin [Mass/Vol] 2.6 g/dL Low 3.5 - 5.0 g/dL [facility] ALP [Catalytic activity/Vol] 221 U/L High 38 - 126 U/L [facility] ALT [Catalytic activity/Vol] 136 U/L High 0 - 34 U/L [facility] Anion gap [Moles/Vol] 2 mmol/L Low 3 - 13 mmol/L [facility] AST [Catalytic activity/Vol] 189 U/L High 15 - 46 U/L [facility] Bilirubin [Mass/Vol] 0.2 mg/dL 0.2 - 1 .3 mg/dL [facility] Calcium [Mass/Vol] 7.5 mg/dL Low 8.4 - 10. 4 mg/dL [facility] Chloride [Moles/Vol] 107 mmol/L 98 - 10 7 mmol/L [facility] CO2 [Moles/Vol] 27 mmol/L 22 - 30 mmol/L [facility] Creatinine [Mass/Vol] 0.87 mg/dL 0.52 - 1.04 mg/dL [facility] GFR/1.73 sq M.predicted MDRD (S/P/Bld) [Vol rate/Area] 67.9 mL/min/{1.73_m2} - PINF [facility] Comment on above: Calculation based on the Chronic Kidney Disease Epidemiology Collaboration (CKD-EPI) equation refit without adjustment for race Glucose [Mass/Vol] 111 mg/dL High 70 - 100 mg/dL [facility] Interpretation and review of laboratory results Abnormal [facility] Potassium [Moles/Vol] 3.5 mmol/L 3.5 - 5.1 mmol/L [facility] Protein [Mass/Vol] 6.0 g/dL Low 6.3 - 8.2 g/dL [facility] Sodium [Moles/Vol] 137 mmol/L 135 - 145 mmol/L [facility] Urea nitrogen [Mass/Vol] 21 mg/dL High 7 - 17 mg/dL [facility] Ferritin [Mass/Vol]on 2022 Interpretation and review of laboratory results Normal [facility] Iron and Iron binding capaci ty panelon 06-15-2022 Interpretation and review of laboratory results Abnormal [facility] Iron [Mass/Vol] 23 ug/dL Low 37 - 170 ug/dL [facility] Iron binding capacity [Mass/Vol] 330 ug/dL 261 - 497 ug/dL [facility] Iron saturation [Mass fraction] 7 % Low 15 - 50 % [facility] Laboratory - Chemistry and C hemistry - challengeon 06-15-2022 Ferritin [Mass/Vol] 20 ng/mL 11 - 264 ng/mL [facility] No Panel InformationOrdered By: Rajat Swanson on 06-15-2022 P [place] 89 degrees [employer] Work Phone: CT Interval 177 ms [employer] Work Phone: QRS [place] -20 degrees [employer] Work Phone: QRSD Interval 90 ms [employer] Work Phone: [phone] QT Interval 438 ms [employer] Work Phone: [phone] QTC Interval 481 ms [employer] Work Phone: [phone] T Wave [place] 39 degrees [employer] Work Phone: [phone] [employer] Work Phone: No Panel Informationon 06-15 Sinus [...] On 06-15-2022 2:53:31 EDT by Rajat Swanson [facility] US Abdomen limitedon 023 Nonspecific coarsene d heterogeneous echotexture of the liver without focal lesion identified. Correlation with LFTs is recommended. Trace ascites. Report Dictated on Electronically Signed By: Seymour Bragg Electronically Signed Date/Time: 06/15/2022 8:48 AM [facility] Patient Name: PREMA VILLALPANDO : 1940 [...] Right kidney: No pelvicalyceal dilatation Ascites: Trace [facility] Seymour Bragg MD - 06/15/2022 Patient [...] Electronically Signed Date/Time: 06/15/2022 8:48 AM EDT [facility] Radiology Study observation (narrative) [employer] US Abdomen limitedOrdered By : Seymour Bragg on 06-15-2022 [employer] Work Phone: Vital signsOrdered By: Ivet Swanson on 06-15-2022 Heart rate 73 /min bpm [employer] Work Phone: CBC W Auto Differential pane l (Bld)Ordered By: Cristiane Womack on 06-14-2022 Basophils (Bld) [#/Vol] 0.0 10*3/uL 0.0 - 0.2 10*3/uL [employer] Basophils/100 WBC (Bld) 0.4 % 0.0 - 2.0 % [facility] Eosinophils (Bld) [#/Vol] 0.1 10*3/uL 0.0 - 0.5 10*3/uL [facility] Eosinophils/100 WBC (Bld) 1.8 % 1.0 - 6.0 % [facility] Erythrocyte distribution width (RBC) [Ratio] 14.4 % 11.5 - 14.5 % [facility] Hematocrit (Bld) [Volume fraction] 27.0 % Low 35.0 - 47.0 % [facility] Hemoglobin (Bld) [Mass/Vol] 8.9 g/dL Low 11.7 - 16.0 g/dL [facility] Interpretation and review of laboratory results Abnormal [facility] Lymphocytes (Bld) [#/Vol] 1.1 10*3/uL 1.0 - 4.3 10*3/uL [facility] Lymphocytes/100 WBC (Bld) 25.1 % 20.0 - 40.0 % [facility] MCH (RBC) [Entitic mass] 26.8 pg 26.0 - 34.0 pg [facility] MCHC (RBC) [Mass/Vol] 32.8 % 32.0 - 36.0 % [facility] MCV (RBC) [Entitic vol] 81.7 fL 80.0 - 98.0 fL [facility] Monocytes (Bld) [#/Vol] 0.3 10*3/uL 0.0 - 0.8 10*3/uL [facility] Monocytes/100 WBC (Bld) 6.5 % 2.0 - 10.0 % [facility] Neutrophils (Bld) [#/Vol] 3.0 10*3/uL 1.8 - 7.0 10*3/uL [facility] Neutrophils/100 WBC (Bld) 66.2 % 40.0 - 80.0 % [facility] Nucleated RBC/100 WBC (Bld) [Ratio] 0.0 % [facility] Platelet mean volume (Bld) [Entitic vol] 8.8 fL 7.4 - 12.4 fL [facility] Platelets (Bld) [#/Vol] 171 10*3/uL 140 - 440 10*3/uL [facility] RBC (Bld) [#/Vol] 3.31 10*6/uL Low 3.8 - 5.20 10*6/uL [facility] WBC (Bld) [#/Vol] 4.6 10*3/uL 3.6 - 10.7 10*3/uL [facility] Comprehensive metabolic 1998 panelon 06-14-2022 Albumin [Mass/Vol] 2.7 g/dL Low 3.5 - 5.0 g/dL [facility] ALP [Catalytic activity/Vol] 141 U/L High 38 - 126 U/L [facility] ALT [Catalytic activity/Vol] 152 U/L High 0 - 34 U/L [facility] Anion gap [Moles/Vol] 1 mmol/L Low 3 - 13 mmol/L [facility] AST [Catalytic activity/Vol] 218 U/L High 15 - 46 U/L [facility] Bilirubin [Mass/Vol] 0.3 mg/dL 0.2 - 1 .3 mg/dL [facility] Calcium [Mass/Vol] 8.1 mg/dL Low 8.4 - 10. 4 mg/dL [facility] Chloride [Moles/Vol] 107 mmol/L 98 - 10 7 mmol/L [facility] CO2 [Moles/Vol] 30 mmol/L 22 - 30 mmol/L [facility] Creatinine [Mass/Vol] 0.78 mg/dL 0.52 - 1.04 mg/dL [facility] GFR/1.73 sq M.predicted MDRD (S/P/Bld) [Vol rate/Area] 77.4 mL/min/{1.73_m2} - PINF [facility] Comment on above: Calculation based on the Chronic Kidney Disease Epidemiology Collaboration (CKD-EPI) equation refit without adjustment for race Glucose [Mass/Vol] 91 mg/dL 70 - 100 mg/dL [facility] Interpretation and review of laboratory results Abnormal [facility] Potassium [Moles/Vol] 3.6 mmol/L 3.5 - 5.1 mmol/L [facility] Protein [Mass/Vol] 6.4 g/dL 6.3 - 8.2 g/dL [facility] Sodium [Moles/Vol] 138 mmol/L 135 - 145 mmol/L [facility] Urea nitrogen [Mass/Vol] 22 mg/dL High 7 - 17 mg/dL [facility] Laboratory - Chemistry and C hemistry - challengeon 06-14-2022 Lactate [Moles/Vol] 0.7 mmol/L 0.7 - 2. 0 mmol/L [facility] No Panel Informationon 06-14 Interpretation and review of laboratory results Normal [facility] Acetaminophen [Mass/Vol]on 0 06-13-2022 Interpretation and review of laboratory results Abnormal [facility] CBC W Auto Differential pane l (Bld)Ordered By: Adela Giron on 06-13-2022 Basophils (Bld) [#/Vol] 0.0 10*3/uL 0.0 - 0.2 10*3/uL [facility] Basophils/100 WBC (Bld) 0.5 % 0.0 - 2.0 % [facility] Eosinophils (Bld) [#/Vol] 0.0 10*3/uL 0.0 - 0.5 10*3/uL [facility] Eosinophils/100 WBC (Bld) 0.5 % Low 1.0 - 6.0 % [facility] Erythrocyte distribution width (RBC) [Ratio] 14.6 % High 11.5 - 14.5 % [facility] Hematocrit (Bld) [Volume fraction] 28.7 % Low 35.0 - 47.0 % [facility] Hemoglobin (Bld) [Mass/Vol] 9.5 g/dL Low 11.7 - 16.0 g/dL [facility] Interpretation and review of laboratory results Abnormal [facility] Lymphocytes (Bld) [#/Vol] 1.3 10*3/uL 1.0 - 4.3 10*3/uL [facility] Lymphocytes/100 WBC (Bld) 19.0 % Low 20.0 - 40.0 % [facility] MCH (RBC) [Entitic mass] 26.9 pg 26.0 - 34.0 pg [facility] MCHC (RBC) [Mass/Vol] 33.0 % 32.0 - 36.0 % [facility] MCV (RBC) [Entitic vol] 81.7 fL 80.0 - 98.0 fL [facility] Monocytes (Bld) [#/Vol] 0.3 10*3/uL 0.0 - 0.8 10*3/uL [facility] Monocytes/100 WBC (Bld) 5.0 % 2.0 - 10.0 % [facility] Neutrophils (Bld) [#/Vol] 5.2 10*3/uL 1.8 - 7.0 10*3/uL [facility] Neutrophils/100 WBC (Bld) 75.0 % 40.0 - 80.0 % [facility] Nucleated RBC/100 WBC (Bld) [Ratio] 0.0 % [facility] Platelet mean volume (Bld) [Entitic vol] 9.2 fL 7.4 - 12.4 fL [facility] Platelets (Bld) [#/Vol] 188 10*3/uL 140 - 440 10*3/uL [facility] RBC (Bld) [#/Vol] 3.51 10*6/uL Low 3.8 - 5.20 10*6/uL [facility] WBC (Bld) [#/Vol] 6.9 10*3/uL 3.6 - 10.7 10*3/uL [facility] CT Head WO contraston 2022 1. No acute intracranial findings. 2. Probable chronic ischemic and atrophic changes. Report Dictated on Electronically Signed By: Niko Talley Electronically Signed Date/Time: 06/13/2022 3:16 PM T [facility] Patient Name: PREMA VILLALPANDO : [...] diffuse volume loss. Osseous calvarium grossly intact. [facility] Niko Talley MD - 06/13/2022 Patient [...] Electronically Signed Date/Time: 06/13/2022 3:16 PM EDT [facility] Radiology Study observation (narrative) [facility] CT Head WO contrastOrdered B y: Niko Talley on 06-13-2022 [facility] Work Phone: Comprehensive metabolic 1998 panelon 06-13-2022 Albumin [Mass/Vol] 3.4 g/dL Low 3.5 - 5.0 g/dL [facility] ALP [Catalytic activity/Vol] 176 U/L High 38 - 126 U/L [facility] ALT [Catalytic activity/Vol] 185 U/L High 0 - 34 U/L [facility] Anion gap [Moles/Vol] 3 mmol/L 3 - 13 mmol/L [facility] AST [Catalytic activity/Vol] 311 U/L High 15 - 46 U/L [facility] Bilirubin [Mass/Vol] 0.5 mg/dL 0.2 - 1 .3 mg/dL [facility] Calcium [Mass/Vol] 8.7 mg/dL 8.4 - 10. 4 mg/dL [facility] Chloride [Moles/Vol] 104 mmol/L 98 - 10 7 mmol/L [facility] CO2 [Moles/Vol] 27 mmol/L 22 - 30 mmol/L [facility] Creatinine [Mass/Vol] 0.80 mg/dL 0.52 - 1.04 mg/dL [facility] GFR/1.73 sq M.predicted MDRD (S/P/Bld) [Vol rate/Area] 75.1 mL/min/{1.73_m2} - PINF [facility] Comment on above: Calculation based on the Chronic Kidney Disease Epidemiology Collaboration (CKD-EPI) equation refit without adjustment for race Glucose [Mass/Vol] 114 mg/dL High 70 - 100 mg/dL [facility] Interpretation and review of laboratory results Abnormal [facility] Potassium [Moles/Vol] 3.7 mmol/L 3.5 - 5.1 mmol/L [facility] Protein [Mass/Vol] 7.5 g/dL 6.3 - 8.2 g/dL [facility] Sodium [Moles/Vol] 134 mmol/L Low 135 - 145 mmol/L [facility] Urea nitrogen [Mass/Vol] 26 mg/dL High 7 - 17 mg/dL [facility] Fibrin D-dimer FEU (PPP) [Ma ss/Vol]on 06-13-2022 Interpretation and review of laboratory results Normal [facility] D-Dimer va lues of <0.50 mg/L FEU can be used in combination with a pre-test probability model (e.g. Well's) to exclude pulmonary embolism (PE) disease, as well as an aid in the diagnosis of deep vein thrombosis (DVT). [facility] Hepatitis 1996 panel (S)on 0 06-13-2022 HAV IgM IA Ql Not detected Not Detected [facility] HBV core IgM IA Ql Not detected Not Detected [facility] HBV surface Ag IA Ql Not detected Not Detected [facility] HCV Ab IA Ql Not detected Not Detected [facility] Comment on above: Patients with DETECT ED Hepatitis C Ab results should have a new specimen submitted for supplemental testing with a Hepatitis C Quantitative RNA assay (viral load), if clinically indicated. Interpretation and review of laboratory results Normal [facility] Laboratory - Chemistry and C hemistry - challengeon 06-13-2022 TSH Qn 3.546 m[IU]/L [facility] Glucose [Mass/Vol] 114 mg/dL [facility] Troponin I.cardiac [Mass/Vol] ng/mL 0.000 - 0.034 ng/mL [facility] Laboratory - Chemistry and C hemistry - challengeOrdered By: Aylin Del Rosario on 06-13-2022 Lactate [Moles/Vol] 2.2 mmol/L Critically high 0.7 - 2.0 mmol/L [facility] Laboratory - Coagulationon 0 06-13-2022 Fibrin D-dimer FEU (PPP) [Mass/Vol] mg/L NINF - 0.50 mg/L [facility] PT Coag (Bld) [Time] 11.6 s 9.0 - 12.0 s [facility] Laboratory - Drug toxicology on 06-13-2022 Acetaminophen [Mass/Vol] ug/mL Low 10.0 - 30.0 ug/mL [facility] Natriuretic peptide B [Mass/ Vol]on 06-13-2022 Interpretation and review of laboratory results Abnormal [facility] Natriuretic peptide B (Bld) [Mass/Vol] 575 pg/mL High <20 - 300 [facility] No Panel Informationon 06-13 Interpretation and review of laboratory results Normal [facility] [place] <50% stenosis in the right internal carotid [...] Artery: Normal. Elevated velocities in subclavian artery [employer] Inspector Details A choudhary scale, color Doppler imaging and spectral Doppler analysis ultrasound was performed. During the study longitudinal and transverse views were obtained. Pulsed wave doppler was performed. The exam was performed with the patient in the supine position. Overall the study quality was good. CV CPACS No Panel InformationOrdered By: Aylin Del Rosario on 06-13-2022 Interpretation and review of laboratory results Abnormal [facility] No Panel InformationOrdered By: Any Palomino on 06-13-2022 Left CCA dist EDV 8.1 cm/s [employer] Phone: Left CCA dist PSV 75.4 cm/s [employer] Phone: Left CCA mid EDV 9.30 cm/s [employer] Phone: Left CCA mid PSV 92.60 cm/s [employer] Phone: Left CCA prox EDV 17.9 cm/s [employer] Phone: Left CCA prox PSV 119.5 cm/s [employer] Phone: Left ECA EDV 0.00 cm/s [employer] Phone: Left ECA PSV 74.6 cm/s [employer] Phone: Left ICA dist EDV 17.0 cm/s [...] Phone: Right CCA prox PSV 80.4 cm/s [employer] [facility] Work Phone: Right ECA EDV 8.90 cm/s [employer] [facility] Work Phone: Right ECA PSV 106.9 cm/s [employer] Work Phone: Right ICA dist EDV 15.3 cm/s [employer] Work Phone: Right ICA dist PSV 71.9 cm/s [employer] Work Phone: Right ICA mid EDV 20.4 cm/s [employer] Work Phone: Right ICA mid PSV 80.9 cm/s [employer] Work Phone: Right ICA prox EDV 13.1 cm/s [employer] Work Phone: Right ICA prox PSV 62.5 cm/s [employer] Work Phone: Right ICA/CCA PSV 0.93 [employer] Work Phone: Right subclavian mid EDV 1.3 cm/s [employer] Work Phone: Right subclavian mid PSV 122.2 cm/s [employer] Work Phone: Right vertebral EDV 9.50 cm/s [employer] Work Phone: Right vertebral PSV 66.6 cm/s [employer] Work Phone: PT Coag (Bld) [Time]on 06-13 INR Coag (PPP) [Relative time] 1.1 {INR} 0.9 - 1.1 [employer] Comment on above: Recommended Anticoag ulant Therapy: [...] Interpretation and review of laboratory results Normal [facility] TSH Qnon 06-13-2022 Interpretation and review of laboratory results Normal [facility] Troponin I.cardiac [Mass/Vol ]on 06-13-2022 Interpretation and review of laboratory results Normal [facility] Patients with high l evels of Biotin oral intake (ie >5 mg/day) may have falsely decreased Troponin levels. [facility] XR Pelvis 1 or 2 [employer]son No fracture or dislocation. Report Dictated on Electronically Signed By: Jovi Davis Electronically Signed Date/Time: 06/13/2022 3:33 PM EDT [facility] Patient Name: PREMA VILLALPANDO : [...] identified. There is no soft tissue abnormality. [facility] Jovi Davis MD - 06/13/2022 Patient [...] Electronically Signed Date/Time: 06/13/2022 3:33 PM EDT [facility] Radiology Study observation (narrative) [facility] XR Pelvis 1 or 2 ViewsOrdere d By: Jovi Davis on 06-13-2022 [employer] Work Phone: Absolute lymphocyte countOrd ered By: ED PROVIDER on 06-01-2022 Lymphocytes Auto (Unsp spec) [#/Vol] 1.57 10*3/uL 0.83-4.51 [facility] Basophil percentageOrdered B y: Dr. Younger on 06-01-2022 Basophil percentage 0-5 SEEN /hpf 0-5 [facility] Bilirubin [Mass/Vol] 0.30 mg/dL 0.20-1.00 [facility] Comment on above: For patients on eltr ombopag therapy, use of Dimension [place] TBIL is not recommended. Protein [Mass/Vol] 7.8 g/dL 6.4-8.2 [facility] Basophil percentageOrdered B y: ED PROVIDER on 06-01-2022 Basophils/100 WBC (Bld) 0.7 % 0-1 [facility] Chloride [Moles/Vol] 105 mmol/L 98-107 [facility] Eosinophils/100 WBC (Bld) 1.1 % 0-5 [facility] Glucose [Mass/Vol] 124 mg/dL 74-106 [facility] Comment on above: Fasting Glucose resu lt from 100 to 125 mg/dL suggests IMPAIRED HOMEOSTASIS per A.D.A. criteria. Neutrophils (Bld) [#/Vol] 4.9 10*3/uL 2.0-7.7 [facility] Neutrophils/100 WBC (Bld) 70.1 % 47-70 [facility] Potassium [Moles/Vol] 3.5 mmol/L 3.5-5.1 [facility] Sodium [Moles/Vol] 137 mmol/L 136-145 [facility] WBC (Bld) [#/Vol] 7.0 10*3/uL 4.4-11.0 [facility] Bilirubin Test strip Ql (U)O rdered By: Dr. Younger on 06-01-2022 Bilirubin Ql (U) Negative Negative [facility] Blood erythrocytes count (nu mber/volume)Ordered By: ED PROVIDER on 06-01-2022 RBC (Bld) [#/Vol] 3.71 10*6/uL 4.2-5.4 [facility] Blood hemoglobin measurement (mass/volume)Ordered By: ED PROVIDER on 06-01-2022 Hemoglobin (Bld) [Mass/Vol] 10.0 g/dL 12.0-15.0 [facility] Blood lymphocytes/100 leukoc ytesOrdered By: ED PROVIDER on 06-01-2022 Lymphocytes/100 WBC (Bld) 22.3 % 19-41 [facility] Blood monocytes/100 leukocyt esOrdered By: ED PROVIDER on 06-01-2022 Monocytes/100 WBC (Bld) 5.5 % 0-10 [facility] Blood platelet mean volumeOr dered By: ED PROVIDER on 06-01-2022 Platelet mean volume (Bld) [Entitic vol] 10.5 fL 6.2-12.0 [facility] Determination of erythrocyte mean corpuscular volume (MCV)Ordered By: ED PROVIDER on 06-01-2022 MCV (RBC) [Entitic vol] 85.4 fL 81-99 [facility] Direct bilirubinOrdered By: Dr. Younger on 06-01-2022 Bilirubin.direct [Mass/Vol] 0.25 mg/dL 0.00-0.30 [facility] Hematocrit Auto (Bld) [Volum e fraction]Ordered By: ED PROVIDER on 06-01-2022 Hematocrit (Bld) [Volume fraction] 31.7 % 37-47 [facility] Influenza virus A and B and SARS-CoV-2 (COVID-19) Ag panel - Upper respiratory specimOrdered By: Dr. Younger on 06-01-2022 SARS-CoV-2 (COVID-19) RNA BALDO+probe Ql (Resp) [facility] Ketones Test strip Ql (U)Ord ered By: Dr. Younger on 06-01-2022 Ketones Ql (U) Negative Negative [facility] Laboratory - Chemistry and C hemistry - challengeOrdered By: Dr. Younger on 06-01-2022 ALP [Catalytic activity/Vol] 207 U/L 45-117 [facility] ALT [Catalytic activity/Vol] 69 U/L 13-56 [facility] Globulin (S) [Mass/Vol] 5.5 g/dL 2.2-4.2 [facility] Laboratory - Chemistry and C hemistry - challengeOrdered By: ED PROVIDER on 06-01-2022 CO2 [Moles/Vol] 31.0 mmol/L 21.0-32.0 [facility] Urea nitrogen/Creatinine [Mass ratio] 33.1 mg/mg 10-20 [facility] Laboratory - Hematology and Cell countsOrdered By: ED PROVIDER on 06-01-2022 Erythrocyte distribution width (RBC) [Entitic vol] 42.8 fL 35.1-43.9 [facility] Erythrocyte distribution width (RBC) [Ratio] 13.8 % 11.6-14.6 [facility] Immature granulocytes/100 WBC (Bld) 0.300 % 0.0-0.9 [facility] Comment on above: IG% - Immature Granu locytes (promyelocytes, myelocytes and metamyelocytes) > 1% indicates that a LEFT SHIFT is Present. MCH (RBC) [Entitic mass] 27.0 pg 27.0-32.0 [facility] Nucleated RBC/100 WBC (Bld) [Ratio] 0 % 0-5 [facility] MCHC Auto (RBC) [Mass/Vol]Or dered By: ED PROVIDER on 06-01-2022 MCHC (RBC) [Mass/Vol] 31.5 g/dL 32-36 [facility] Mucus LM Ql (Urine sed)Order ed By: Dr. Younger on 06-01-2022 Mucus Ql (Urine sed) 0 SEEN /hpf [facility] Nitrite Test strip Ql (U)Ord ered By: Dr. Younger on 06-01-2022 Nitrite Ql (U) Negative Negative [facility] No Panel InformationOrdered By: ED PROVIDER on 06-01-2022 Estimated GFR (MDRD) Amer 77 mL/min >60 [facility] Comment on above: GFR Calc Estimated GFR (MDRD) Non-Af Amer 64 mL/min >60 [facility] Comment on above: Non- GFR Calc Platelets bldOrdered By: ED PROVIDER on 06-01-2022 Platelets (Bld) [#/Vol] 248 10*3/uL 150-450 [facility] Protein Test strip Ql (U)Ord ered By: Dr. Younger on 06-01-2022 Protein Ql (U) 30 mg/dl Negative [facility] Serum or plasma albumin blanco urement (mass/volume)Ordered By: Dr. Younger on 06-01-2022 Albumin [Mass/Vol] 2.3 g/dL 3.2-5.0 [facility] Serum or plasma calcium blanco urement (mass/volume)Ordered By: ED PROVIDER on 06-01-2022 Calcium [Mass/Vol] 8.6 mg/dL 8.5-10.1 [facility] Serum or plasma creatinine m easurement (mass/volume)Ordered By: ED PROVIDER on 06-01-2022 Creatinine [Mass/Vol] 0.91 mg/dL 0.55-1.02 [facility] Comment on above: The validity of the calculated GFR & GFRAA in patients over 70 years has not been determined. Clinical correlation is essential. Serum or plasma urea nitroge n measurement (mass/volume)Ordered By: ED PROVIDER on 06-01-2022 Urea nitrogen [Mass/Vol] 30 mg/dL 7-18 [facility] Squamous epithelial cells de tection in urine sediment by light microscopyOrdered By: Dr. Younger on 06-01-2022 Epithelial cells.squamous LM Ql (Urine sed) 0-5 SEEN /hpf 5-10 [facility] Thin prep Papanicolaou smear with manual screeningOrdered By: Dr. Younger on 06-01-2022 Thin prep Papanicolaou smear with manual screening 75 U/L 15-37 [facility] Thin prep Papanicolaou smear with manual screeningOrdered By: ED PROVIDER on 06-01-2022 Thin prep Papanicolaou smear with manual screening 1 5-15 [facility] Urine blood detectionOrdered By: Dr. Younger on 06-01-2022 RBC Ql (U) Negative Negative [facility] RBC Ql (U) 0 SEEN /hpf 0-5 [facility] Urine clarityOrdered By: Dr. Younger on 06-01-2022 Clarity (U) Sl. Cloudy Clear [facility] Urine color determinationOrd ered By: Dr. Younger on 06-01-2022 Color (U) Yellow Yellow [facility] Urine glucose detectionOrder ed By: Dr. Younger on 06-01-2022 Glucose Ql (U) Normal mg/dl Normal [facility] Urine leukocyte esterase det ection by dipstickOrdered By: Dr. Younger on 06-01-2022 Leukocyte esterase Test strip Ql (U) 25 /ul Negative [facility] Urine pHOrdered By: Dr. Jacqueline delgado on 06-01-2022 pH (U) 5.0 [pH] 5.0 - 8.0 [facility] Urine sediment bacteria coun t by microscopy (number/high power field)Ordered By: Dr. Younger on 06-01-2022 Bacteria LM.HPF (Urine sed) [#/Area] 0 /[HPF] None Seen [facility] Urine specific gravity measu rementOrdered By: Dr. Younger on 06-01-2022 Specific gravity (U) [Rel density] 1.015 1.002-1.030 [facility] Urobilinogen Auto test strip Ql (U)Ordered By: Dr. Younger on 06-01-2022 Urobilinogen Ql (U) 1 mg/dl Normal [facility] Absolute lymphocyte countOrd ered By: Dr. Pack on 05-13-2022 Lymphocytes Auto (Unsp spec) [#/Vol] 1.03 10*3/uL 0.83-4.51 [facility] Basophil percentageOrdered B y: Dr. Pack on 05-13-2022 Basophils/100 WBC (Bld) 0.8 % 0-1 [facility] Chloride [Moles/Vol] 106 mmol/L 98-107 [facility] Eosinophils/100 WBC (Bld) 4.1 % 0-5 [facility] Glucose [Mass/Vol] 102 mg/dL 74-106 [facility] Comment on above: Fasting Glucose resu lt from 100 to 125 mg/dL suggests IMPAIRED HOMEOSTASIS per A.D.A. criteria. Neutrophils (Bld) [#/Vol] 3.0 10*3/uL 2.0-7.7 [facility] Neutrophils/100 WBC (Bld) 61.7 % 47-70 [facility] Potassium [Moles/Vol] 3.9 mmol/L 3.5-5.1 [facility] Sodium [Moles/Vol] 139 mmol/L 136-145 [facility] WBC (Bld) [#/Vol] 4.8 10*3/uL 4.4-11.0 [facility] Blood erythrocytes count (nu mber/volume)Ordered By: Dr. Pack on 05-13-2022 RBC (Bld) [#/Vol] 3.19 10*6/uL 4.2-5.4 [facility] Blood hemoglobin measurement (mass/volume)Ordered By: Dr. Pack on 05-13-2022 Hemoglobin (Bld) [Mass/Vol] 8.7 g/dL 12.0-15.0 [facility] Blood lymphocytes/100 leukoc ytesOrdered By: Dr. Pack on 05-13-2022 Lymphocytes/100 WBC (Bld) 21.4 % 19-41 [facility] Blood monocytes/100 leukocyt esOrdered By: Dr. Pack on 05-13-2022 Monocytes/100 WBC (Bld) 11.8 % 0-10 [facility] Blood platelet mean volumeOr dered By: Dr. Pack on 05-13-2022 Platelet mean volume (Bld) [Entitic vol] 11.9 fL 6.2-12.0 [facility] Determination of erythrocyte mean corpuscular volume (MCV)Ordered By: Dr. Pack on 05-13-2022 MCV (RBC) [Entitic vol] 89.0 fL 81-99 [facility] Glucose Glucometer (BldC) [M ass/Vol]Ordered By: Dr. Pack on 05-13-2022 Glucose [Mass/Vol] 131 mg/dL 74-106 [facility] Comment on above: MANAGEMENT OF PATIEN T CARE PER NURSING PROTOCOL Hematocrit Auto (Bld) [Volum e fraction]Ordered By: Dr. Pack on 05-13-2022 Hematocrit (Bld) [Volume fraction] 28.4 % 37-47 [facility] INR in Blood by Coagulation assayOrdered By: Dr. Gill on 05-13-2022 INR Coag (Bld) [Relative time] 1.2 {INR} [facility] Iron measurement (mass/mass) Ordered By: Dr. Pack on 05-13-2022 Iron (Unsp spec) [Mass/Mass] 39 ug/dL 50-170 [facility] Laboratory - Chemistry and C hemistry - challengeOrdered By: Dr. Pack on 05-13-2022 CO2 [Moles/Vol] 28.0 mmol/L 21.0-32.0 [facility] Urea nitrogen/Creatinine [Mass ratio] 23.3 mg/mg 10-20 [facility] Laboratory - CoagulationOrde red By: Dr. Gill on 05-13-2022 aPTT Coag (Bld) [Time] 34.4 s 24.1-36.2 [facility] PT Coag (PPP) [Time] 14.7 s 11.7-14.9 [facility] Laboratory - Hematology and Cell countsOrdered By: Dr. Pack on 05-13-2022 Erythrocyte distribution width (RBC) [Entitic vol] 42.1 fL 35.1-43.9 [facility] Erythrocyte distribution width (RBC) [Ratio] 13.0 % 11.6-14.6 [facility] Immature granulocytes/100 WBC (Bld) 0.200 % 0.0-0.9 [facility] Comment on above: IG% - Immature Granu locytes (promyelocytes, myelocytes and metamyelocytes) > 1% indicates that a LEFT SHIFT is Present. MCH (RBC) [Entitic mass] 27.3 pg 27.0-32.0 [facility] Nucleated RBC/100 WBC (Bld) [Ratio] 0 % 0-5 [facility] MCHC Auto (RBC) [Mass/Vol]Or dered By: Dr. Pack on 05-13-2022 MCHC (RBC) [Mass/Vol] 30.6 g/dL 32-36 [facility] No Panel InformationOrdered By: Dr. Pack on 05-13-2022 Estimated Creatinine Clearance Calc 37.10 ml/min [facility] Estimated GFR (MDRD) Amer 82 mL/min >60 [facility] Comment on above: GFR Calc Estimated GFR (MDRD) Non-Af Amer 68 mL/min >60 [facility] Comment on above: Non- GFR Calc Total Iron Binding Capacity 406 ug/dL 250-450 [facility] Platelets bldOrdered By: Dr. Pack on 05-13-2022 Platelets (Bld) [#/Vol] 178 10*3/uL 150-450 [facility] Serum or plasma calcium blanco urement (mass/volume)Ordered By: Dr. Pack on 05-13-2022 Calcium [Mass/Vol] 9.1 mg/dL 8.5-10.1 [facility] Serum or plasma creatinine m easurement (mass/volume)Ordered By: Dr. Pack on 05-13-2022 Creatinine [Mass/Vol] 0.86 mg/dL 0.55-1.02 [facility] Comment on above: The validity of the calculated GFR & GFRAA in patients over 70 years has not been determined. Clinical correlation is essential. Serum or plasma ferritin ellen surement (mass/volume)Ordered By: Dr. Pack on 05-13-2022 Ferritin [Mass/Vol] 17 ng/mL 8-252 [facility] Serum or plasma iron saturat ion measurement (mass fraction)Ordered By: Dr. Pack on 05-13-2022 Iron saturation [Mass fraction] 9.6 % 15.0-55.0 [facility] Serum or plasma urea nitroge n measurement (mass/volume)Ordered By: Dr. Pack on 05-13-2022 Urea nitrogen [Mass/Vol] 20 mg/dL 7-18 [facility] Thin prep Papanicolaou smear with manual screeningOrdered By: Dr. Pack on 05-13-2022 Thin prep Papanicolaou smear with manual screening 5 5-15 [facility] Whole blood hemoglobin A1c/t otal hemoglobin ratio (mass fraction)Ordered By: Dr. Gill on 05-13-2022 HbA1c (Bld) [Mass fraction] 5.7 % 3.8-5.6 [facility] Comment on above: Normal < 5.7 % Predi abetic 5.7 - 6.4 % Diabetic >or= 6.5 % Please note range changes. Laboratory - Chemistry and C hemistry - challengeon 02-23-2022 Glucose [Mass/Vol] 119 mg/dL High 70 - 100 mg/dL [facility] No Panel Informationon 02-23 Interpretation and review of laboratory results Abnormal [facility] Performed by: JOSE JUAN ID: [id number] [facility] CT Head or Brain w/o Contras ton 05-13-2021 CT Head or Brain w/o Contrast [facility]: [id number] Tom[facility] ACCESSION EXAM DATE/TIME PROCEDURE ORDERING PROVIDER [id number] 05/13/2021 16:[address] Head or Brain w/o ROYCE KOEHLER Contrast CPT code 79342 Reason For Exam (CT Head or Brain [...] Transcribed Date and Time: 05/14/2021 8:13 Normal [facility] Comp Metabolic Panelon 12-30 ALP [Catalytic activity/Vol] 157 U/L High 38-126 [facility] Comment on above: Performed By: #### C MP3 #### [facility] [address] [place] [address] ALT [Catalytic activity/Vol] 45 U/L High 0-34 [facility] Comment on above: Result Comment: The ALT test is performed by an updated assay method. Please note that the reference intervals have been changed and are now sex specific. Performed By: #### C MP3 #### [facility] [address] [place] [address] Calcium [Mass/Vol] 10.0 mg/dL Normal 8.4-10.4 [facility] Comment on above: Performed By: #### C MP3 #### [facility] [address] [place] [address] Glucose [Mass/Vol] 109 mg/dL High 70-100 [facility] Comment on above: Performed By: #### C MP3 #### [facility] [address] [place] [address] Urea nitrogen [Mass/Vol] 19 mg/dL Normal 9-20 [facility] Comment on above: Performed By: #### C MP3 #### [facility] [address] [place] [address] Anion gap [Moles/Vol] 2 mmol/L Low 3-13 [facility] Comment on above: Performed By: #### C MP3 #### [facility] [address] [place] [address] AST [Catalytic activity/Vol] 65 U/L High 15-46 [facility] Comment on above: Performed By: #### C MP3 #### [facility] [address] [place] [address] Bilirubin [Mass/Vol] 0.4 mg/dL Normal 0.2-1.3 [facility] Comment on above: Performed By: #### C MP3 #### [facility] [address] [place] [address] CO2 [Moles/Vol] 34 mmol/L High 22-30 [facility] Comment on above: Performed By: #### C MP3 #### [facility] [address] [place] [address] Creatinine [Mass/Vol] 0.96 mg/dL Normal 0.52-1.25 [facility] Comment on above: Performed By: #### C MP3 #### [facility] [address] [place] [address] GFR/1.73 sq M.predicted among blacks MDRD (S/P/Bld) [Vol rate/Area] 65.6 mL/min/{1.73_m2} Normal >60 [facility] Comment on above: Performed By: #### C MP3 #### [facility] [address] [place] [address] GFR/1.73 sq M.predicted among non-blacks MDRD (S/P/Bld) [Vol rate/Area] 56.6 mL/min/{1.73_m2} Abnormal >60 [facility] Comment on above: Result Comment: KDIG [...] secretion. Performed By: #### C MP3 #### [facility] [address] [place] [address] Protein [Mass/Vol] 7.7 g/dL Normal 6.3-8.2 [facility] Comment on above: Performed By: #### C MP3 #### [facility] [address] [place] [address] Potassium [Moles/Vol] 3.7 mmol/L Normal 3.5-5.1 [facility] Comment on above: Performed By: #### C MP3 #### [facility] [address] [place] [address] Sodium [Moles/Vol] 142 mmol/L Normal 135-145 [facility] Comment on above: Performed By: #### C MP3 #### [facility] [address] [place] [address] Albumin [Mass/Vol] 4.0 g/dL Normal 3.5-5.0 [facility] Comment on above: Performed By: #### C MP3 #### [facility] [address] [place] [address] Chloride [Moles/Vol] 105 mmol/L Normal 98-107 [facility] Comment on above: Performed By: #### C MP3 #### [facility] [address] [place] [address] Hemogramon 11-08-2020 Erythrocyte distribution width (RBC) [Ratio] 12.5 % Normal 11.5-14.5 [facility] Comment on above: Performed By: #### H EMOG, LIPD2 #### [facility] [address] [place] [address] Hematocrit (Bld) [Volume fraction] 37.0 % Normal 35.0-47.0 [facility] Comment on above: Performed By: #### H EMOG, LIPD2 #### [facility] [address] [place] [address] Hemoglobin (Bld) [Mass/Vol] 12.6 g/dL Normal 11.7-16.0 [facility] Comment on above: Performed By: #### H EMOG, LIPD2 #### [facility] [address] [place] [address] MCH (RBC) [Entitic mass] 31.7 pg Normal 26.0-34.0 [facility] Comment on above: Performed By: #### H EMOG, LIPD2 #### [facility] [address] [place] [address] MCHC 34.1 % Normal 32.0-36.0 [facility] Comment on above: Performed By: #### H EMOG, LIPD2 #### [facility] [address] [place] [address] MCV (RBC) [Entitic vol] 92.9 fL Normal 79.0-98.0 [facility] Comment on above: Performed By: #### H EMOG, LIPD2 #### [facility] [address] [place] [address] Platelet mean volume (Bld) [Entitic vol] 9.4 fL Normal 7.4-10.4 [facility] Comment on above: Performed By: #### H EMOG, LIPD2 #### [facility] [address] [place] [address] Platelets (Bld) [#/Vol] 208 10*3/uL Normal 140-440 [facility] Comment on above: Performed By: #### H EMOG, LIPD2 #### [facility] [address] [place] [address] RBC (Bld) [#/Vol] 3.98 10*6/uL Normal 3.80-5.20 [facility] Comment on above: Performed By: #### H EMOG, LIPD2 #### [facility] [address] [place] [address] WBC (Bld) [#/Vol] 7.3 10*3/uL Normal 3.6-10.7 [facility] Comment on above: Performed By: #### H EMOG, LIPD2 #### [facility] [address] [place] [address] Lipid Panelon 11-08-2020 Chol/HDL 2 Normal [facility] Comment on above: Result Comment: Ref Range: < 3 Low Risk for CHD 3-6 Mod Risk for CHD > 6 High Risk for CHD Performed By: #### H EMOG, LIPD2 #### [facility] [address] [place] [address] Cholesterol in HDL [Mass/Vol] 61 mg/dL High 40-60 [facility] Comment on above: Performed By: #### H EMOG, LIPD2 #### [facility] [address] [place] [address] Low Density Lipoprotein 53 mg/dL Normal <100 [facility] Comment on above: Performed By: #### H EMOG, LIPD2 #### [facility] [address] [place] [address] Triglyceride [Mass/Vol] 63 mg/dL Normal <150 [facility] Comment on above: Performed By: #### H EMOG, LIPD2 #### [facility] [address] [place] [address] Cholesterol [Mass/Vol] 127 mg/dL Normal < 200 [facility] Comment on above: Performed By: #### H EMOG, LIPD2 #### [facility] [address] [place] [address] US ABDOMEN LIMITEDOrdered By : Mita Morton on 08-20-2020 Patient Name: PREMA VILLALPANDO Ultrasound ACCESSION EXAM DATE/TIME PROCEDURE ORDERING PROVIDER [id number] 08/20/2020 09:18 EDT US Abdomen Limited ESTERLE, DO, MITA CPT code 82468 Reason For Exam (US Abdomen Limited) elevated [...] Time: 08/20/2020 9:18 [facility] Work Phone: [facility] Results From [facility] - 08/20/2020 9:18 AM EDT Patient Name: PREMA VILLALPANDO Ultrasound ACCESSION EXAM DATE/TIME PROCEDURE ORDERING PROVIDER [id number] 08/20/2020 09:18 EDT US Abdomen Limited EVETTELE, DO, MITA CPT code 98999 Reason For Exam (US Abdomen Limited) elevated [...] Limitedon 021 US Abdomen Limited [facility]: [id number]ound ACCESSION EXAM DATE/TIME PROCEDURE ORDERING PROVIDER [id number] 08/20/2020 09:18 EDT US Abdomen Limited DO MORTON LISA CPT code 66259 Reason For Exam (US Abdomen Limited) elevated [...] Transcribed Date and Time: 08/20/2020 9:18 Normal [facility] Hepatic Functionon 1 ALP [Catalytic activity/Vol] 173 U/L High 38-126 [facility] Comment on above: Performed By: #### L FT3 #### [facility] [address] [place] [address] ALT [Catalytic activity/Vol] 62 U/L High 0-34 [facility] Comment on above: Result Comment: The ALT test is performed by an updated assay method. Please note that the reference intervals have been changed and are now sex specific. Performed By: #### L FT3 #### [facility] [address] [place] [address] AST [Catalytic activity/Vol] 76 U/L High 15-46 [facility] Comment on above: Performed By: #### L FT3 #### [facility] [address] [place] [address] Bilirubin [Mass/Vol] 0.5 mg/dL Normal 0.2-1.3 [facility] Comment on above: Performed By: #### L FT3 #### [facility] [address] [place] [address] Bilirubin.indirect [Mass/Vol] 0.0 mg/dL Normal 0.0-0.3 [facility] Comment on above: Performed By: #### L FT3 #### [facility] [address] [place] [address] Protein [Mass/Vol] 7.5 g/dL Normal 6.3-8.2 [facility] Comment on above: Performed By: #### L FT3 #### [facility] [address] [place] [address] Albumin [Mass/Vol] 4.0 g/dL Normal 3.5-5.0 [facility] Comment on above: Performed By: #### L FT3 #### [facility] [address] [place] [address] Medical Cytology 1 Medical Cytology [facility] [id number] DEPARTMENT OF PATHOLOGY AND [facility] LABORATORY MEDICINE [address] [place], [place] [address], [place] [address] FINAL MEDICAL CYTOLOGY REPORT NAME: PREMA VILLALPANDO : 1940 79 Y F BILLING NO.: [id number] LOCATION: [facility] ULTRASOUND PROCEDURE 06/04/2020 DATE: PHYSICIAN: BETSY REEVES PA-C RECEIVED DATE: 06/04/2020 ATTENDING: BETSY REEVES PA-C REPORT DATE: 06/05/2020 COPIES TO: EDIS MARIA D.O. CLINICAL DATA: Left thyroid nodule DIAGNOSIS Diagnostic Category: BENIGN. Benign follicular nodule. Scant groups of benign-appearing follicular cells present in a background of peripheral blood elements. Comment: According to the [place] System for Reporting Thyroid Cytopathology, the implied [...] FINE NEEDLE ASPIRATION GROSS DESCRIPTION: 30 ml, [place] fluid, w/cytolyt. Materials Prepared & Examined: Cell [...] characteristics determined by the clinical laboratories of [facility]. They have not been cleared by [...] negativity on decalcified specimens. Case reviewed at [place] [address] [place] [address]. DEPARTMENT OF PATHOLOGY AND LABORATORY MEDICINE [place], [place] [address] [email or web address] Normal [facility] US Biopsy Thyroidon 06-05-19 21 US Biopsy Thyroid Patient Name: PREMA VILLALPANDO Ultrasound ACCESSION EXAM DATE/TIME PROCEDURE ORDERING PROVIDER [id number] 06/04/2020 11:17 EDT US Biopsy Thyroid POONAM REEVES AMBER CPT code 19873 46295 Reason For Exam (US Biopsy Thyroid) left thyroid nodule 1.9cm not previously biopsied Report ULTRASOUND GUIDED THYROID BIOPSY: CLINICAL INDICATION: Left inferior thyroid nodule. Status post right thyroidectomy. PROCEDURE: The patient (or guardian) agrees to proceed with the procedure, and understands the benefits and risks given their co-morbidities/chronic conditions and quality of life. This includes the discussion regarding the risk of jyashree COVID-19 and the impact of that possibility [...] Transcribed Date and Time: 06/04/2020 12:14 Normal [facility] US GUIDED THYROID BIOPSY PER CUTANEOUSOrdered By: Betsy Reeves on 06-04-2020 Patient Name: PREMA VILLALPANDO Ultrasound ACCESSION EXAM DATE/TIME PROCEDURE ORDERING PROVIDER [id number] 06/04/2020 11:17 EDT US Biopsy Thyroid POONAM REEVES AMBER CPT code 64899 45146 Reason For Exam (US Biopsy Thyroid) left [...] I Transcribed Date and Time: 06/04/2020 12:14 [facility] Work Phone: Kash, [facility] Incoming Radiology Results From [facility] - 06/04/2020 12:14 PM EDT Patient Name: PREMA VILLALPANDO Ultrasound ACCESSION EXAM DATE/TIME PROCEDURE ORDERING PROVIDER [id number] 06/04/2020 11:17 EDT US Biopsy Thyroid NOEMITyronePOONAMBETSY CPT code 62418 90365 Reason For Exam (US Biopsy Thyroid) left [...] Ultrasound ACCESSION EXAM DATE/TIME PROCEDURE ORDERING PROVIDER [id number] 05/21/2020 14:35 EDT US Parathyroid BIBI WYATT RYAN C CPT code 52027 Reason For Exam (US Parathyroid) Throid nodule [...] Transcribed Date and Time: 05/22/2020 11:57 Normal [facility] XR KNEE RIGHT (MIN 4 VIEWS)o n 02-07-2020 [id number] Radiology ACCESSION EXAM DATE/TIME PROCEDURE ORDERING PROVIDER [id number] 02/07/2020 15:25 EST CR Knee Complete 4+ ESTERLE, DO, MITA Views Right CPT code 27947 Reason For Exam (CR Knee Complete 4+ [...] LAURA Transcribed Date and Time: 02/07/2020 4:46 [place], [place] Kash, Lu Incoming Radiology Results From [facility] - 02/07/2020 4:46 PM EST Patient Name: PREMA VILLALPANDO [facility]#: [id number] Diagnostic Radiology ACCESSION EXAM DATE/TIME PROCEDURE ORDERING PROVIDER [id number] 02/07/2020 15:25 EST CR Knee Complete 4+ ESTERLE, DO, MITA Views Right CPT code 89677 Reason For Exam (CR Knee Complete 4+ [...] LAURA Transcribed Date and Time: 02/07/2020 4:46 [place], [place] CT HEAD OR BRAIN W/O CONTRAS [...] Date: 12/02/2019 7:26:15 PM Ordering Provider:Peter Swift [facility] ([place] MAXILLOFACIAL W/O CONTRAS Ton 12-02-2019 CT [...] Sign Date: 12/02/2019 8:18:14 PM Ordering Provider:Peter Swift [facility] [place] CYTOLOGY, NON-GYNon 11-09-19 20 Cytology report Cyto stain.thin prep Doc (Cvx/Vag) SEE BELOW [facility], [address]20-582 DEPARTMENT OF PATHOLOGY AND [facility] LABORATORY MEDICINE [address] [place] [id number] FINAL MEDICAL CYTOLOGY REPORT NAME: PREMA VILLALPANDO : 1940 79 Y F BILLING NO.: [id number] LOCATION: [facility] ULTRASOUND PROCEDURE 11/09/2019 DATE: PHYSICIAN: ZOE WYATT RECEIVED DATE: 11/09/2019 ATTENDING: ZOE WYATT REPORT DATE: 11/09/2019 COPIES TO: SHANICE RIVERA MD CLINICAL DATA: DIAGNOSIS Diagnostic Category: BENIGN. Benign follicular nodule, consistent with a colloid nodule. Many groups of follicular cells and colloid present. Comment: According to the [place] System for Reporting Thyroid Cytopathology, the implied [...] . . . . . . , [facility] Screened by JENNY FERNANDEZ M.D. Printed November 09, 2019 at 4:33:03 PM Disclaimer The following statement applies to all immunohistochemistry, in situ hybridization, molecular studies, and immunofluorescence testing. The use of one or more reagents in the above tests is regulated as an analyte specific reagent (ASR). These tests were developed and their performance characteristics determined by the clinical laboratories of [facility]. They have not been cleared by [...] negativity on decalcified specimens. Case reviewed at [facility] [address] [place] [address]. DEPARTMENT OF PATHOLOGY AND LABORATORY MEDICINE [place], [place] [address] [place], [place] US FINE NEEDLE ASPIRATIONon 11-09-2019 Patient Name: PREMA VILLALPANDO ---Ultrasound--- Exam Date/Time 11/09/2019 11:38:38 EDT Exam US Fine Needle Aspiration w/ Image Guide Ordering Physician BIBI WYATT RYAN C Accession Number [id number] CPT4 Codes 51096 () Reason For Exam Left sided thyroid [...] KEVIN Transcribed Date and Time: 11/09/2019 2:40 [place], [place] Kash, [facility] 11/09/2019 2:40 PM EDT Patient Name: PREMA VILLALPANDO ---Ultrasound--- Exam Date/Time 11/09/2019 11:38:38 EDT Exam US Fine Needle Aspiration w/ Image Guide Ordering Physician BIBI WYATT RYAN C Accession Number [id number] CPT4 Codes 89996 () Reason For Exam Left sided thyroid [...] KEVIN Transcribed Date and Time: 11/09/2019 2:40 [place], [place] US THYROIDon 10-18-2019 Patient Name: PREMA VILLALPANDO ---Ultrasound--- Exam Date/Time 10/18/2019 15:28:03 EDT Exam US Parathyroid Ordering Physician DO MORTON LISA Accession Number [id number] CPT4 Codes 70634 () Reason For Exam thyroid nodule Report [...] J [facility]. May 2016 [email or web address]/a rticles/qinjsvb-vzvwe-yjo tahafi-mpy-mdkp-system- tirads [email or web address].[email or web address] rticles/wsa-urdnnly-ylgii wj-nipeiwyov-lkn-data- system-a r-ti-rads Report Dictated on Workstation: [id number] --- Final --- Dictating Physician: DO ORDOÑEZ RACHEL Signed Date and Time: 10/18/2019 4:32 pm Signed by: DO ORDOÑEZ RACHEL Transcribed Date and Time: 10/18/2019 4:33 [facility]- [place], [place] [facility] Incoming Radiology Results From [facility] - 10/18/2019 4:33 PM EDT Patient Name: PREMA VILLALPANDO ---Ultrasound--- Exam Date/Time 10/18/2019 15:28:03 EDT Exam US Parathyroid Ordering Physician DO MORTON LISA Accession Number [id number] CPT4 Codes 34982 () Reason For Exam thyroid nodule Report [...] J [facility]. May 2016 https://radiopaedia.org/a rticles/sykijew-eucui-vap umdsyr-cuw-fwrc-system- tirads [email or web address]://radiopaedia.org/a rticles/zws-prtctfx-reufp lc-fvarrbkeo-vrg-data- system-a r-ti-rads Report Dictated on --- Final --- Dictating Physician: DO ORDOÑEZ RACHEL Signed Date and Time: 10/18/2019 4:32 pm Signed by: DO ORDOÑEZ RACHEL Transcribed Date and Time: 10/18/2019 4:33 [facility], [place] BREAST ULTRASOUNDon 10-04-19 20 BREAST ULTRASOUND Patient Name: PREMA VILLALPANDO STUDY: BREAST ULTRASOUND; 10/04/2019 11:18 am ACCESSION NUMBER(S): [id number] ORDERING CLINICIAN: JANUSZ SCHWARTZ INDICATION: The patient was recalled from recent screening mammogram 08/09/2019 for a right breast mass like asymmetry. COMPARISON: Mammogram 08/09/2019. FINDINGS: Targeted ultrasound of the right breast was performed by a registered drug safety data management specialist submitted for remote interpretation. A morphologically normal [...] any future breast imaging appointments, please call [phone] ([phone]). Patient letter sent SNORM I personally reviewed the images/study and I agree with the dental resident physician, Dr. Geremias New's findings, as stated. This study was interpreted at [facility]. Electronically signed by: NAEL COLMENARES MD Normal [facility] CT HEAD OR BRAIN W/O CONTRAS Ton [...] 10:01:36 PM Ordering Provider:Felton Mitchell [facility] ([place]) CT SPINE CERVICAL W/O CONTRA Ang 09-28-2019 [...] PM Sign Date: 09/27/2019 10:04:18 PM Ordering Provider:[facility] [place] XR CHEST 2 VIEWSon 0 XR CHEST [...] PM Sign Date: 09/27/2019 10:20:57 PM Ordering Provider:[facility] [place] XR ELBOW MINIMUM 3 VIEWS RIG HTon [...] Date: 09/27/2019 10:20:19 PM Ordering Provider:Felton Swift [facility] ([place]) Basic Metabolic Panelon 07- Anion gap [Moles/Vol] 9 mmol/L [place] Calcium [Mass/Vol] 9.7 mg/dL 8.4 - 10. 4 mg/dL [place] Chloride [Moles/Vol] 99 mmol/L 98 - 10 7 mmol/L [place] CO2 [Moles/Vol] 32 mmol/L High 22 - 30 mmol/L [place] Creatinine [Mass/Vol] 1.02 mg/dL 0.52 - 1.25 mg/dL [place] EGFR IF NonAfrican Romanian 53.1 mL/min Abnormal >60 [place] Comment on above: KDIGO guidelines pro [...] MDRD (S/P/Bld) [Vol rate/Area] 61.5 mL/min/{1.73_m2} >60 [place] Glucose [Mass/Vol] 146 mg/dL High 70 - 100 mg/dL [place] Potassium [Moles/Vol] 3.7 mmol/L 3.5 - 5.1 mmol/L [place] Sodium [Moles/Vol] 140 mmol/L 135 - 145 mmol/L [place] Urea nitrogen [Mass/Vol] 29 mg/dL High 7 - 20 mg/dL [place] CBCon 08-21-2019 Erythrocyte distribution width (RBC) [Ratio] 12.7 % 11.5 - 14.5 % [place] Hematocrit (Bld) [Volume fraction] 37.1 % 35 - 47 % [place] Hemoglobin (Bld) [Mass/Vol] 12.7 g/dL 11.7 - 16 g/dL [place] MCH (RBC) [Entitic mass] 32.0 pg 26 - 34 pg [place] MCHC (RBC) [Mass/Vol] 34.3 % 32 - 36 % [place] MCV (RBC) [Entitic vol] 93.3 fL 79 - 98 fL [place] Platelet mean volume (Bld) [Entitic vol] 10.3 fL 7.4 - 10.4 fL [place] Platelets (Bld) [#/Vol] 236 10*3/uL 140 - 440 10*3/uL [place] RBC (Bld) [#/Vol] 3.97 10*6/uL 3.8 - 5.2 10*6/uL [place] WBC (Bld) [#/Vol] 8.1 10*3/uL 3.6 - 10.7 10*3/uL [place] Test Performed by [facility], [address] [place] [address] Patel. , [address] Hepatic Function Panelon Albumin [Mass/Vol] 4.1 g/dL 3.5 - 5 g/dL [place], [place] ALP [Catalytic activity/Vol] 172 U/L High 38 - 126 U/L [place] ALT [Catalytic activity/Vol] 63 U/L High 0 - 34 U/L [place] Comment on above: The ALT test is perf ormed by an updated assay method. Please note that the reference intervals have been changed and are now sex specific. AST [Catalytic activity/Vol] 65 U/L High 15 - 46 U/L [place] Bilirubin Ql (U) 0.4 mg/dL 0.2 - 1.3 mg/dL [place] Bilirubin.direct [Mass/Vol] 0.0 mg/dL 0 - 0.3 mg/dL [facility] KARL Protein [Mass/Vol] 7.5 g/dL 6.3 - 8.2 g/dL [facility] [place] Otheron 08-21-2019 Interpretation and review of laboratory results Abnormal [place] Test Performed by [facility], [address] , [address] DIGITAL MAMM SCREENING W/ TO Lynne 08-09-2019 DIGITAL MAMM SCREENING W/ ENOCH Patient Name: PREMA VILLALPANDO STUDY: DIGITAL MAMM SCREENING W/ ENOCH; 08/09/2019 11:50 am ACCESSION NUMBER(S): [id number] ORDERING CLINICIAN: JANUSZ SCHWARTZ INDICATION: Screening. New [...] any future breast imaging appointments, please call [phone]). Patient letter sent ROLANDO I personally reviewed the images/study and I agree with the resident, Dr. Geremias New's findings as stated. This study was interpreted at [facility]. Electronically signed by: THELMA HERNANDZE MD [facility] Clinic Note - Heme Oncon Clinic Note - Heme Onc History of Presen t Illness: Interval History: Consulting physician Dr. Morton Reason for follow-up Weight loss History of present illness Patient is a 78-year-old white woman with past medical history of acute AR and hypoxic brain injury at that time [...] had EGD 6 months ago either at [facility] or [facility] in July 2018 and had stent placed at [facility], at that time she was hypoxemic [...] EGD with the last 6 month at [facility] per daughter REVIEW OF SYSTEMS: Patient [...] No hepatosplenomegaly or masses. Bowel sounds positive. QUALITY TECHNICIAN FIBERGLASS: Speech is normal. Extremities: No clubbing, cyanosis, or edema. Skin: No petechial rash. Assessment and plan Patient is a 78-year-old white woman with large hiatal hernia, anoxic brain injury after severe anemia and acute AR in July 2018 and since then she [...] weight again she will help to see doctor of pharmacy to see if this could be related to large hiatal hernia. Thank you very much for allowing me to participate in care of this patient, should you have any further question please do not hesitate to contact me. Charting was completed using voice recognition technology and may include unintended errors. Janusz Schwartz MD Hematology-Oncology [place] Office [facility] Outpatient Medication Profile: * Patient Currently [...] Reference Range: STRAW,YELLOW Appearance, Urine CLEAR Specific [place], Urine 1.020 pH, Urine 6.0 Protein, Urine NEGATIVE Glucose, Urine NEGATIVE Blood, Urine NEGATIVE Ketones, Urine NEGATIVE Bilirubin, Urine NEGATIVE Urobilinogen, Urine <2.0 Nitrite, Urine NEGATIVE Leukocyte Esterase, Urine NEGATIVE HIV Antigen/Antibody Screen 05-Jun-2019 08:31:00 ResultValue HIV Ag/Ab Screen NONREACTIVE Reference Range: NONREACTIVE HIV Ag/Ab screen is performed using the Siemens Gamervision HIV Ag/Ab Combo assay which detects the [...] no Note Recipients: Mita Morton MD - [phone] Select Yes when ready to send to Provider(s) Listed Above: Note sent to providers named above Electronic Signatures: Janusz Schwartz) (Signed 30-Jun-2019 11:34) Authored: History of Present Illness, Allergies and Outpatient Medication Profile, Problem List, Social History, Performance Assessments, Vitals and Measurements, Physical Exam, Results, Patient Instructions, To Send Document via Auto Fax Last Updated: 30-Jun-2019 11:34 by Janusz Schwartz) Normal [facility] Clinic Note - Heme Onc This report has b een cancelled. Normal [facility] Clinic Note - Intakeon 06-29 Clinic Note [...] using an assistive deviceno [facility] PO[facility] Violence: Do you feel UNSAFE going [...] Updated: 30-Jun-2019 10:14 by Sangeetha Shannon) Normal [facility] CBC AND DIFFERENTIALon 06-04 % AUTOMATED IMMATURE GRAN 0.3 % Normal 0.0 - 0.9 [facility] Comment on above: Result Comment: Apolonia ture Granulocyte Count (IG) includes promyelocytes, myelocytes and metamyelocytes but does not include bands. Percent differential counts (%) should be interpreted in the context of the absolute cell counts (cells/L). Performed By: #### C BCDF #### [facility] [address] [place] [address] Basophils (Bld) [#/Vol] 0.06 10*3/uL Normal 0.00 - 0.10 [facility] Comment on above: Performed By: #### C BCDF #### [facility] [address] [place] [address] Basophils/100 WBC (Bld) 1.0 % Normal 0.0 - 2.0 [facility] Comment on above: Performed By: #### C BCDF #### [facility] [address] [place] [address] Eosinophils (Bld) [#/Vol] 0.18 10*3/uL Normal 0.00 - 0.40 [facility] Comment on above: Performed By: #### C BCDF #### [facility] [address] [place] [address] Eosinophils/100 WBC (Bld) 3.0 % Normal 0.0 - 6.0 [facility] Comment on above: Performed By: #### C BCDF #### [facility] [address] [place] [address] Erythrocyte distribution width (RBC) [Ratio] 13.3 % Normal 11.5 - 14.5 [facility] Comment on above: Performed By: #### C BCDF #### [facility] [address] [place] [address] Hematocrit (Bld) [Volume fraction] 38.7 % Normal 36.0 - 46.0 [facility] Comment on above: Performed By: #### C BCDF #### [facility] [address] [place] [address] Hemoglobin (Bld) [Mass/Vol] 12.3 g/dL Normal 12.0 - 16.0 [facility] Comment on above: Performed By: #### C BCDF #### [facility] [address] [place] [address] Lymphocytes (Bld) [#/Vol] 1.17 10*3/uL Normal 0.80 - 3.00 [facility] Comment on above: Performed By: #### C BCDF #### [facility] [address] [place] [address] Lymphocytes/100 WBC (Bld) 19.8 % Normal 13.0 - 44.0 [facility] Comment on above: Performed By: #### C BCDF #### [facility] [address] [place] [address] MCHC (RBC) [Mass/Vol] 31.8 g/dL Low 32.0 - 36.0 [facility] Comment on above: Performed By: #### C BCDF #### [facility] [address] [place] [address] MCV (RBC) [Entitic vol] 97 fL Normal 80 - 100 [facility] Comment on above: Performed By: #### C BCDF #### [facility] [address] [place] [address] Monocytes (Bld) [#/Vol] 0.45 10*3/uL Normal 0.05 - 0.80 [facility] Comment on above: Performed By: #### C BCDF #### [facility] [address] [place] [address] Monocytes/100 WBC (Bld) 7.6 % Normal 2.0 - 10.0 [facility] Comment on above: Performed By: #### C BCDF #### [facility] [address] [place] [address] Neutrophils (Bld) [#/Vol] 4.04 10*3/uL Normal 1.60 - 5.50 [facility] Comment on above: Performed By: #### C BCDF #### [facility] [address] [place] [address] Neutrophils/100 WBC (Bld) 68.3 % Normal 40.0 - 80.0 [facility] Comment on above: Performed By: #### C BCDF #### [facility] [address] [place] [address] Nucleated RBC/100 WBC (Bld) [Ratio] 0.0 /100 WBC Normal 0.0-0.0 [facility] Comment on above: Performed By: #### C BCDF #### [facility] [address] [place] [address] Platelets (Bld) [#/Vol] 199 10*3/uL Normal 150 - 450 [facility] Comment on above: Performed By: #### C BCDF #### [facility] [address] [place] [address] RBC (Bld) [#/Vol] 3.98 x10E12/L Low 4.00 - 5.20 [facility] Comment on above: Performed By: #### C BCDF #### [facility] [address] [place] [address] WBC (Bld) [#/Vol] 5.9 10*3/uL Normal 4.4 - 11.3 [facility] Comment on above: Performed By: #### C BCDF #### [facility] [address] [place] [address] COMPREHENSIVE PANELon 2019 Albumin [Mass/Vol] 3.6 g/dL Normal 3.4 - 5.0 [facility] Comment on above: Performed By: #### C MP #### [facility] [address] [place] [address] ALP [Catalytic activity/Vol] 236 U/L High 33 - 136 [facility] Comment on above: Performed By: #### C MP #### [facility] [address] [place] [address] ALT [Catalytic activity/Vol] 77 U/L High 7 - 45 [facility] Comment on above: Result Comment: Lauren ents treated with Sulfasalazine may generate falsely decreased results for ALT. Performed By: #### C MP #### [facility] [address] [place] [address] Anion gap [Moles/Vol] 12 mmol/L Normal 10 - 20 [facility] Comment on above: Performed By: #### C MP #### [facility] [address] [place] [address] AST [Catalytic activity/Vol] 96 U/L High 9 - 39 [facility] Comment on above: Performed By: #### C MP #### [facility] [address] [place] [address] Bilirubin [Mass/Vol] 0.5 mg/dL Normal 0.0 - 1.2 [facility] Comment on above: Performed By: #### C MP #### [facility] [address] [place] [address] Calcium [Mass/Vol] 9.3 mg/dL Normal 8.6 - 10.6 [facility] Comment on above: Performed By: #### C MP #### [facility] [address] [place] [address] Chloride [Moles/Vol] 103 mmol/L Normal 98 - 107 [facility] Comment on above: Performed By: #### C MP #### [facility] [address] [place] [address] Creatinine [Mass/Vol] 0.72 mg/dL Normal 0.50 - 1.05 [facility] Comment on above: Performed By: #### C MP #### [facility] [address] [place] [address] GFR- AM. >60 Normal >60 [facility] Comment on above: Result Comment: CALC ULATIONS OF ESTIMATED GFR ARE PERFORMED USING THE MDRD STUDY EQUATION FOR THE IDMS-TRACEABLE CREATININE METHODS. CLIN CHEM 2007;53:766-72 Performed By: #### C MP #### [facility] [address] [place] [address] GFR-NON AM. >60 Normal >60 [facility] Comment on above: Performed By: #### C MP #### [facility] [address] [place] [address] Glucose [Mass/Vol] 140 mg/dL High 74 - 99 [facility] Comment on above: Performed By: #### C MP #### [facility] [address] [place] [address] HCO3 (Bld) [Moles/Vol] 31 mmol/L Normal 21 - 32 [facility] Comment on above: Performed By: #### C MP #### [facility] [address] [place] [address] Potassium [Moles/Vol] 4.1 mmol/L Normal 3.5 - 5.3 [facility] Comment on above: Performed By: #### C MP #### [facility] [address] [place] [address] Protein [Mass/Vol] 6.7 g/dL Normal 6.4 - 8.2 [facility] Comment on above: Performed By: #### C MP #### [facility] [address] [place] [address] Sodium [Moles/Vol] 142 mmol/L Normal 136 - 145 [facility] Comment on above: Performed By: #### C MP #### [facility] [address] [place] [address] Urea nitrogen [Mass/Vol] 21 mg/dL Normal 6 - 23 [facility] Comment on above: Performed By: #### C MP #### [facility] [address] [place] [address] CORTISOL,UNSPECIFIEDon 06-04 CORTISOL,UNSPECIFIED 23.2 ug/dL High 2.5 - 20.0 [facility] Comment on above: Performed By: #### C ORUN #### [facility] [address] [place] [address] HEMOGLOBIN A1Con 06-05-2019 HbA1c (Bld) [Mass fraction] 6.2 % Normal [facility] Comment on above: Result Comment: Diag nosis of Diabetes-Adults Non-Diabetic: < or = 5.6% Increased risk for developing diabetes: 5.7-6.4% Diagnostic of diabetes: > or = 6.5% . Monitoring of Diabetes Age (y) Therapeutic Goal (%) Adults: >18 <7.0 Pediatrics: 13-18 <7.5 7-12 <8.0 0- 6 7.5-8.5 [place] [employer]. Diabetes Care 33(S1), Feb 2009. Performed By: #### H BA1E #### [facility] [address] [place] [address] HbA1c (Bld) [Mass fraction] 131 MG/DL Normal [facility] Comment on above: Performed By: #### H BA1E #### [facility] [address] [place] [address] HIV ANTIGEN/ANTIBODY SCREENo n 06-05-2019 HIV AG/AB SCREEN NONREACTIVE Normal NONREACTIVE [facility] Comment on above: Result Comment: HIV Ag/Ab screen is performed using the Siemens AtellMpax HIV Ag/Ab Combo assay which detects the presence of HIV p24 antigen as well as antibodies to HIV-1 (Group M and O) and HIV-2. Performed By: #### H IV #### [facility] [address] [place], [place] LDHon 06-05-2019 LDH 161 U/L Normal 84 - 246 [facility] Comment on above: Performed By: #### L DH #### [facility] [address] [place], [place] TSH WITH REFLEX TO FREE T4 I F ABNORMALon 06-05-2019 TSH Qn 3.40 m[IU]/L Normal 0.44 - 3.98 [facility] Comment on above: Result Comment: Note new pediatric reference range as of 04/11/2019. TSH testing is performed using different testing methodology at [facility] than at other [facility]. Direct result comparisons should only be made within the same method. Performed By: #### T HYDS #### [facility] [address] [place], [place] Lab Specimen Source Normal [facility] Comment on above: Performed By: #### T HYDS #### [facility] [address] [place], [place] Performed By: #### C ORUN #### [facility] [address] [place], [place] Performed By: #### H IV #### [facility] [address] [place], [place] URINALYSISon 06-05-2019 Appearance (U) CLEAR Normal CLEAR [facility] Comment on above: Performed By: #### U A #### [facility] [address] [place], [place] Bilirubin (U) [Mass/Vol] Negative Normal NEGATIVE [facility] Comment on above: Performed By: #### U A #### [facility] [address] [place] [address] BLOOD Negative Normal NEGATIVE [facility] Comment on above: Performed By: #### U A #### [facility] [address] [place] [address] Color (U) YELLOW Normal STRAW,YELLOW [facility] Comment on above: Performed By: #### U A #### [facility] [address] [place] [address] Glucose [Mass/Vol] Negative Normal NEGATIVE [facility] Comment on above: Performed By: #### U A #### [facility] [address] [place] [address] Ketones Ql (U) Negative Normal NEGATIVE [facility] Comment on above: Performed By: #### U A #### [facility] [address] [place] [address] Leukocyte esterase Test strip Ql (U) Negative Normal NEGATIVE [facility] Comment on above: Performed By: #### U A #### [facility] [address] [place] [address] Nitrite Ql (U) Negative Normal NEGATIVE [facility] Comment on above: Performed By: #### U A #### [facility] [address] [place] [address] pH (Bld) 6.0 Normal 5.0 - 8.0 [facility] Comment on above: Performed By: #### U A #### [facility] [address] [place] [address] Protein (U) [Mass/Vol] Negative Normal NEGATIVE [facility] Comment on above: Performed By: #### U A #### [facility] [address] [place] [address] Specific gravity (U) [Rel density] 1.020 Normal 1.005 - 1.035 [facility] Comment on above: Performed By: #### U A #### [facility] [address] [place] [address] Urobilinogen Qn (U) <2.0 Normal 0.0 - 1.9 [facility] Comment on above: Performed By: #### U A #### [facility] [address] 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 at that time [...] had EGD 6 months ago either at [facility] July 2018 and had stent placed at [facility], at that time she was hypoxemic [...] EGD with the last 6 month at [facility] per daughter Family history Lung disease in father, mother had dementia Allergy She thinks that she is allergic to some sort of blood thinner when she was in the hospital in February 2019 at [facility] but is not sure REVIEW OF [...] brain injury after severe anemia and acute AR in July 2018 and since then she [...] loss she was advised to follow-up with doctor of pharmacy to make sure it is not related [...] include unintended errors. Janusz Schwartz MD Hematology-Oncology [facility] Office [facility] Office Outpatient Medication Profile: * Patient [...] mammogram. Note Recipients: Mita Morton MD - [phone] Select Yes when ready to send to Provider(s) Listed Above: Note sent to providers named above Electronic Signatures: Janusz Schwartz) (Signed 02-Jun-2019 13:20) Authored: Patient Visit Information, History of Present Illness, Allergies and Outpatient Medication Profile, Problem List, Social History, Physical Exam, Patient Instructions, To Send Document via Auto Fax Last Updated: 02-Jun-2019 13:20 by Janusz Schwartz) Normal [facility] CT Abdomen Pelvis W Contrast on 04-04-2019 Patient Name: PREMA VILLALPANDO ---CT--- Exam Date/Time 04/04/2019 10:45:[address] Abdomen/Pelvis w/ IV Contrast (IV Onl Ordering Physician DO MORTON LISA Accession Number [id number] CPT4 Codes 13567 (CT Abdomen/Pelvis w/ IV Contrast (IV Onl) [...] JASON Transcribed Date and Time: 04/04/2019 2:56 [place], [place] [facility] Incoming Radiology Results From [facility] - 04/04/2019 2:56 PM EST Patient Name: PREMA VILLALPANDO ---CT--- Exam Date/Time 04/04/2019 10:45:[address] Abdomen/Pelvis w/ IV Contrast (IV Onl Ordering Physician DO MORTON LISA Accession Number [id number] CPT4 Codes 07563 (CT Abdomen/Pelvis w/ IV Contrast (IV Onl) [...] JASON Transcribed Date and Time: 04/04/2019 2:56 [place] CT CHEST W CONTRASTon 2019 Patient Name: PREMA VILLALPANDO ---CT--- Exam Date/Time 04/04/2019 10:45:[address] Chest w/ Contrast Ordering Physician DO MORTON LISA Accession Number [id number] CPT4 Codes 93128 (), Q9967 (CT ISOVUE 370MG/[id number]&ML&1 ) Reason For Exam abnormal weight loss [...] JASON Transcribed Date and Time: 04/04/2019 2:56 [place] [facility] Incoming Radiology Results From [facility] - 04/04/2019 2:56 PM EST Patient Name: PREMA VILLALPANDO ---CT--- Exam Date/Time 04/04/2019 10:45:[address] Chest w/ Contrast Ordering Physician DO MORTON LISA Accession Number [id number] CPT4 Codes 78358 (), Q9967 (CT ISOVUE 370MG/ML&[id number]&ML&1 ) Reason For Exam abnormal weight loss [...] JASON Transcribed Date and Time: 04/04/2019 2:56 [facility], [place] XR ELBOW MINIMUM 3 VIEWS RIG HTon [...] 8:02:36 AM Ordering Provider:Rakan Skelton [facility] ([place]) XR HAND MINIMUM 3 VIEWS RIG Ton [...] 8:04:33 AM Ordering Provider:Rakan Skelton [facility] ([place]) Creatinine, Serumon 03-31-19 20 Creatinine [Mass/Vol] 0.77 mg/dL 0.52 - 1.25 mg/dL [place], [place] EGFR IF NonAfrican [place] >60.0 >60 mL/min [place], [place] Comment on above: Source- MDRD equatio n with creatinine calibration to IDMS(NKDEP) eGFR not recommended for drug dose adjustment GFR/1.73 sq M predicted among blacks MDRD (S/P/Bld) [Vol rate/Area] mL/min/{1.73_m2} >60 mL/min [place], [place] Test Performed by [facility], [facility] , [address] HEAD OR BRAIN W/O CONTRAS [...] 8:54:43 PM Ordering Provider:Rakan Skelton [facility] ([place]) CBC Auto DifferentialOrdered By: Tj Muniz on 02-18-2019 Absolute Baso # 0.1 10*3/uL 0 - 0.2 10*3/uL [facility] Work Phone: Absolute Neut # 10.3 10*3/uL High 1.8 - 7 10*3/uL [facility] Work Phone: Basophils/100 WBC (Bld) 0.5 % 0 - 2 % [facility] Work Phone: Eosinophils (Bld) [#/Vol] 0.2 10*3/uL 0 - 0.5 10*3/uL [employer] Work Phone: [phone] Eosinophils/100 WBC (Bld) 1.2 % 1 - 6 % [employer] Work Phone: [phone] Erythrocyte distribution width (RBC) [Ratio] 12.7 % 11.5 - 14.5 % [employer] Work Phone: [phone] Granulocytes/100 WBC (Bld) 78.0 % 40 - 80 % [facility] Work Phone: [phone] Hematocrit (Bld) [Volume fraction] 32.8 % Low 35 - 47 % [employer] Work Phone: [phone] Hemoglobin (Bld) [Mass/Vol] 11.3 g/dL Low 11.7 - 16 g/dL [employer] Work Phone: [phone] Interpretation and review of laboratory results Abnormal [employer] Work Phone: [phone] Lymphocytes (Bld) [#/Vol] 1.9 10*3/uL 1 - 4.3 10*3/uL [employer] Work Phone: [phone] Lymphocytes/100 WBC (Bld) 14.8 % Low 20 - 40 % [employer] Work Phone: [phone] MCH (RBC) [Entitic mass] 33.4 pg 26 - 34 pg [employer] Work Phone: [phone] MCHC 34.3 % 32 - 36 % [employer] Work Phone: [phone] MCV (RBC) [Entitic vol] 97.3 fL 79 - 98 fL [employer] Work Phone: [phone] Monocytes (Bld) [#/Vol] 0.7 10*3/uL 0 - 0.8 10*3/uL [employer] Work Phone: [phone] Monocytes/100 WBC (Bld) 5.5 % 2 - 10 % [employer] Work Phone: [phone] Platelet mean volume (Bld) [Entitic vol] 10.6 fL High 7.4 - 10.4 fL [employer] Work Phone: [phone] Platelets (Bld) [#/Vol] 207 10*3/uL 140 - 440 10*3/uL [facility] Work Phone: [phone] RBC (Bld) [#/Vol] 3.37 10*6/uL Low 3.8 - 5.2 10*6/uL [facility] Work Phone: WBC (Bld) [#/Vol] 13.1 10*3/uL High 3.6 - 10.7 10*3/uL [facility] Work Phone: Test Performed by [facility], [address] [place] [address] [facility] Work Phone: Hemogram w/ Autodiffon 02-18 Abs Baso Cnt 0.1 10*3/uL Normal 0.0-0.2 [facility] Comment on above: Performed By: #### H EMDF, BMP3, LFT3, LIPA4, TROPN #### [address] [address] Abs Neutrophile Cnt 10.3 10*3/uL High 1.8-7.0 [facility] Comment on above: Performed By: #### H EMDF, BMP3, LFT3, LIPA4, TROPN #### [address] [address] Basophils/100 WBC (Bld) 0.5 % Normal 0.0-2.0 [facility] Comment on above: Performed By: #### H EMDF, BMP3, LFT3, LIPA4, TROPN #### [address] [address] Eosinophils (Bld) [#/Vol] 0.2 10*3/uL Normal 0.0-0.5 [facility] Comment on above: Performed By: #### H EMDF, BMP3, LFT3, LIPA4, TROPN #### [address] [address] Eosinophils/100 WBC (Bld) 1.2 % Normal 1.0-6.0 [facility] Comment on above: Performed By: #### H EMDF, BMP3, LFT3, LIPA4, TROPN #### [address] Erythrocyte distribution width (RBC) [Ratio] 12.7 % Normal 11.5-14.5 [facility] Comment on above: Performed By: #### H EMDF, BMP3, LFT3, LIPA4, TROPN #### [address] Granulocytes/100 WBC (Bld) 78.0 % Normal 40.0-80.0 [facility] Comment on above: Performed By: #### H EMDF, BMP3, LFT3, LIPA4, TROPN #### [address] Hematocrit (Bld) [Volume fraction] 32.8 % Low 35.0-47.0 [facility] Comment on above: Performed By: #### H EMDF, BMP3, LFT3, LIPA4, TROPN #### [address] Hemoglobin (Bld) [Mass/Vol] 11.3 g/dL Low 11.7-16.0 [facility] Comment on above: Performed By: #### H EMDF, BMP3, LFT3, LIPA4, TROPN #### [address] Lymphocytes (Bld) [#/Vol] 1.9 10*3/uL Normal 1.0-4.3 [facility] Comment on above: Performed By: #### H EMDF, BMP3, LFT3, LIPA4, TROPN #### [address] Lymphocytes/100 WBC (Bld) 14.8 % Low 20.0-40.0 [facility] Comment on above: Performed By: #### H EMDF, BMP3, LFT3, LIPA4, TROPN #### [address] MCH (RBC) [Entitic mass] 33.4 pg Normal 26.0-34.0 [facility] Comment on above: Performed By: #### H EMDF, BMP3, LFT3, LIPA4, TROPN #### [facility] [address] [place], [place] MCHC (RBC) [Mass/Vol] 34.3 % Normal 32.0-36.0 [facility] Comment on above: Performed By: #### H EMDF, BMP3, LFT3, LIPA4, TROPN #### [address] [address] [place], [place] MCV (RBC) [Entitic vol] 97.3 fL Normal 79.0-98.0 [facility] Comment on above: Performed By: #### H EMDF, BMP3, LFT3, LIPA4, TROPN #### [address] [address] [place], [place] Monocytes (Bld) [#/Vol] 0.7 10*3/uL Normal 0.0-0.8 [facility] Comment on above: Performed By: #### H EMDF, BMP3, LFT3, LIPA4, TROPN #### [address] Monocytes/100 WBC (Bld) 5.5 % Normal 2.0-10.0 [facility] Comment on above: Performed By: #### H EMDF, BMP3, LFT3, LIPA4, TROPN #### [address] [address] [address] [place], [place] Platelet mean volume (Bld) [Entitic vol] 10.6 fL High 7.4-10.4 [facility] Comment on above: Performed By: #### H EMDF, BMP3, LFT3, LIPA4, TROPN #### [address] [address] [address] [place], [place] Platelets (Bld) [#/Vol] 207 10*3/uL Normal 140-440 [facility] Comment on above: Performed By: #### H EMDF, BMP3, LFT3, LIPA4, TROPN #### [address] RBC (Bld) [#/Vol] 3.37 10*6/uL Low 3.80-5.20 [facility] Comment on above: Performed By: #### H EMDF, BMP3, LFT3, LIPA4, TROPN #### [address] WBC (Bld) [#/Vol] 13.1 10*3/uL High 3.6-10.7 [facility] Comment on above: Performed By: #### H EMDF, BMP3, LFT3, LIPA4, TROPN #### [address] [address] [place], [place] Lipaseon 02-18-2019 Lipase [Catalytic activity/Vol] 211 U/L Normal 23-300 [facility] Comment on above: Performed By: #### H EMDF, BMP3, LFT3, LIPA4, TROPN #### [address] LipaseOrdered By: Tj Muniz on 02-18-2019 Lipase [Catalytic activity/Vol] 211 U/L 23 - 300 U/L [facility] Work Phone: Test Performed by [facility], [address] [place] [address] [facility] Work Phone: Basic Metabolic Panelon 02-08 Calcium [Mass/Vol] 8.6 mg/dL Normal 8.4-10.4 [facility] Comment on above: Performed By: #### H EMDF, BMP3, LFT3, LIPA4, TROPN #### [address] [address] [place], [place] Glucose [Mass/Vol] 125 mg/dL High 70-100 [facility] Comment on above: Performed By: #### H EMDF, BMP3, LFT3, LIPA4, TROPN #### [address] Urea nitrogen [Mass/Vol] 21 mg/dL High 7-20 [facility] Comment on above: Performed By: #### H EMDF, BMP3, LFT3, LIPA4, TROPN #### [address] Anion gap [Moles/Vol] 9 Normal [facility] Comment on above: Performed By: #### H EMDF, BMP3, LFT3, LIPA4, TROPN #### [address] [place] [address] [place], [place] CO2 [Moles/Vol] 24 mmol/L Normal 22-30 [facility] Comment on above: Performed By: #### H EMDF, BMP3, LFT3, LIPA4, TROPN #### [address] [address] [place], [place] Creatinine [Mass/Vol] 0.81 mg/dL Normal 0.52-1.25 [facility] Comment on above: Performed By: #### H EMDF, BMP3, LFT3, LIPA4, TROPN #### [address] GFR/1.73 sq M predicted among blacks MDRD (S/P/Bld) [Vol rate/Area] mL/min/{1.73_m2} Normal >60 [facility] Comment on above: Performed By: #### H EMDF, BMP3, LFT3, LIPA4, TROPN #### [address] [address] [place], [place] GFR/1.73 sq M predicted among non-blacks MDRD (S/P/Bld) [Vol rate/Area] mL/min/{1.73_m2} Normal >60 [facility] Comment on above: Result Comment: Sour ce- MDRD equation with creatinine calibration to IDMS(NKDEP) eGFR not recommended for drug dose adjustment Performed By: #### H EMDF, BMP3, LFT3, LIPA4, TROPN #### [address] [address] [place], [place] Chloride [Moles/Vol] 106 mmol/L Normal 98-107 [facility] Comment on above: Performed By: #### H EMDF, BMP3, LFT3, LIPA4, TROPN #### [address] [address] [place], [place] Potassium [Moles/Vol] 4.1 mmol/L Normal 3.5-5.1 [facility] Comment on above: Performed By: #### H EMDF, BMP3, LFT3, LIPA4, TROPN #### [facility] [address] [place] [address] Sodium [Moles/Vol] 139 mmol/L Normal 135-145 [facility] Comment on above: Performed By: #### H EMDF, BMP3, LFT3, LIPA4, TROPN #### [facility] [address] [place] [address] Basic Metabolic PanelOrdered By: Tj Muniz on 02-17-2019 Anion gap [Moles/Vol] 9 mmol/L [facility] Work Phone: [phone] Calcium [Mass/Vol] 8.6 mg/dL 8.4 - 10. 4 mg/dL [facility] Work Phone: [phone] Chloride [Moles/Vol] 106 mmol/L 98 - 10 7 mmol/L [facility] Work Phone: [phone] CO2 [Moles/Vol] 24 mmol/L 22 - 30 mmol/L [facility] Work Phone: [phone] Creatinine [Mass/Vol] 0.81 mg/dL 0.52 - 1.25 mg/dL [facility] Work Phone: [phone] EGFR IF NonAfrican Romanian >60.0 >60 mL/min [facility] Work Phone: [phone] Comment on above: Source- MDRD equatio n with creatinine calibration to IDMS(NKDEP) eGFR not recommended for drug dose adjustment GFR/1.73 sq M.predicted among blacks MDRD (S/P/Bld) [Vol rate/Area] mL/min/{1.73_m2} >60 mL/min [facility] Work Phone: [phone] Glucose [Mass/Vol] 125 mg/dL High 70 - 100 mg/dL [facility] Work Phone: [phone] Potassium [Moles/Vol] 4.1 mmol/L 3.5 - 5.1 mmol/L [facility] Work Phone: [phone] Sodium [Moles/Vol] 139 mmol/L 135 - 145 mmol/L [facility] Work Phone: [phone] Urea nitrogen [Mass/Vol] 21 mg/dL High 7 - 20 mg/dL [employer] Work Phone: [phone] CBC Auto DifferentialOrdered [...] [#/Vol] 0.1 10*3/uL 0 - 0.5 10*3/uL [employer] Work Phone: [phone] Eosinophils/100 WBC (Bld) 0.5 % Low 1 - 6 % [employer] Work Phone: ) Erythrocyte distribution width (RBC) [Ratio] 12.6 % 11.5 - 14.5 % [employer] Work Phone: [phone] Granulocytes/100 WBC (Bld) 83.5 % High 40 - 80 % [employer] Work Phone: Hematocrit (Bld) [Volume fraction] 34.3 % Low 35 - 47 % [employer] Work Phone: [phone] Hemoglobin (Bld) [Mass/Vol] 11.6 g/dL Low 11.7 - 16 g/dL [employer] Work Phone: [phone] Interpretation and review of laboratory results Abnormal [employer] Work Phone: ) [phone] Lymphocytes (Bld) [#/Vol] [...] vol] 96.5 fL 79 - 98 fL [employer] Work Phone: [phone] Monocytes (Bld) [#/Vol] 1.3 10*3/uL High 0 - 0.8 10*3/uL [employer] Work Phone: [phone] Monocytes/100 WBC (Bld) 6.6 % 2 - 10 % [employer] Work Phone: [phone] Platelet mean volume (Bld) [Entitic vol] 10.3 fL 7.4 - 10.4 fL [employer] Work Phone: [phone] Platelets (Bld) [#/Vol] 244 10*3/uL 140 - 440 10*3/uL [employer] Work Phone: [phone] RBC (Bld) [#/Vol] 3.56 10*6/uL Low 3.8 - 5.2 10*6/uL [employer] Work Phone: [phone] WBC (Bld) [#/Vol] 19.0 10*3/uL High 3.6 - 10.7 10*3/uL [employer] Work Phone: [phone] Test Performed by [facility], [address] [place] [id number] [place], [place] [address] Work Phone: [phone] Hemogram w/ Autodiffon 02-17 Abs Baso Cnt 0.0 10*3/uL Normal 0.0-0.2 [facility] Comment on above: Performed By: #### H EMDF, BMP3, LFT3, LIPA4, TROPN #### [facility] [address] [address] Abs Neutrophile Cnt 15.9 10*3/uL High 1.8-7.0 [facility] Comment on above: Performed By: #### H EMDF, BMP3, LFT3, LIPA4, TROPN #### [facility] [address] [place] [address] Basophils/100 WBC (Bld) 0.3 % Normal 0.0-2.0 [facility] Comment on above: Performed By: #### H EMDF, BMP3, LFT3, LIPA4, TROPN #### [address] [address] [address] [place], [place] Eosinophils (Bld) [#/Vol] 0.1 10*3/uL Normal 0.0-0.5 [facility] Comment on above: Performed By: #### H EMDF, BMP3, LFT3, LIPA4, TROPN #### [address] [address] [place], [place] Eosinophils/100 WBC (Bld) 0.5 % Low 1.0-6.0 [facility] Comment on above: Performed By: #### H EMDF, BMP3, LFT3, LIPA4, TROPN #### [address] [address] [place], [place] Erythrocyte distribution width (RBC) [Ratio] 12.6 % Normal 11.5-14.5 [facility] Comment on above: Performed By: #### H EMDF, BMP3, LFT3, LIPA4, TROPN #### [address] Granulocytes/100 WBC (Bld) 83.5 % High 40.0-80.0 [facility] Comment on above: Performed By: #### H EMDF, BMP3, LFT3, LIPA4, TROPN #### [address] Hematocrit (Bld) [Volume fraction] 34.3 % Low 35.0-47.0 [facility] Comment on above: Performed By: #### H EMDF, BMP3, LFT3, LIPA4, TROPN #### [address] [address] [place], [place] Hemoglobin (Bld) [Mass/Vol] 11.6 g/dL Low 11.7-16.0 [facility] Comment on above: Performed By: #### H EMDF, BMP3, LFT3, LIPA4, TROPN #### [address] Lymphocytes (Bld) [#/Vol] 1.7 10*3/uL Normal 1.0-4.3 [facility] Comment on above: Performed By: #### H EMDF, BMP3, LFT3, LIPA4, TROPN #### [address] Lymphocytes/100 WBC (Bld) 9.1 % Low 20.0-40.0 [facility] Comment on above: Performed By: #### H EMDF, BMP3, LFT3, LIPA4, TROPN #### [address] MCH (RBC) [Entitic mass] 32.7 pg Normal 26.0-34.0 [facility] Comment on above: Performed By: #### H EMDF, BMP3, LFT3, LIPA4, TROPN #### [address] MCHC (RBC) [Mass/Vol] 33.9 % Normal 32.0-36.0 [facility] Comment on above: Performed By: #### H EMDF, BMP3, LFT3, LIPA4, TROPN #### [address] MCV (RBC) [Entitic vol] 96.5 fL Normal 79.0-98.0 [facility] Comment on above: Performed By: #### H EMDF, BMP3, LFT3, LIPA4, TROPN #### [address] Monocytes (Bld) [#/Vol] 1.3 10*3/uL High 0.0-0.8 [facility] Comment on above: Performed By: #### H EMDF, BMP3, LFT3, LIPA4, TROPN #### [address] Monocytes/100 WBC (Bld) 6.6 % Normal 2.0-10.0 [facility] Comment on above: Performed By: #### H EMDF, BMP3, LFT3, LIPA4, TROPN #### [address] Platelet mean volume (Bld) [Entitic vol] 10.3 fL Normal 7.4-10.4 [facility] Comment on above: Performed By: #### H EMDF, BMP3, LFT3, LIPA4, TROPN #### [address] [address] [place], [place] Platelets (Bld) [#/Vol] 244 10*3/uL Normal 140-440 [facility] Comment on above: Performed By: #### H EMDF, BMP3, LFT3, LIPA4, TROPN #### [address] [address] [address] [place], [place] RBC (Bld) [#/Vol] 3.56 10*6/uL Low 3.80-5.20 [facility] Comment on above: Performed By: #### H EMDF, BMP3, LFT3, LIPA4, TROPN #### [address] [address] [place], [place] WBC (Bld) [#/Vol] 19.0 10*3/uL High 3.6-10.7 [facility] Comment on above: Performed By: #### H EMDF, BMP3, LFT3, LIPA4, TROPN #### [address] Hepatic Functionon 0 ALP [Catalytic activity/Vol] 75 U/L Normal 38-126 [facility] Comment on above: Performed By: #### H EMDF, BMP3, LFT3, LIPA4, TROPN #### [address] [address] [place] ALT [Catalytic activity/Vol] 60 U/L Normal 13-69 [facility] Comment on above: Performed By: #### H EMDF, BMP3, LFT3, LIPA4, TROPN #### [address] AST [Catalytic activity/Vol] 62 U/L High 15-46 [facility] Comment on above: Performed By: #### H EMDF, BMP3, LFT3, LIPA4, TROPN #### [address] [address] [place], [place] Bilirubin [Mass/Vol] 0.5 mg/dL Normal 0.2-1.3 [facility] Comment on above: Performed By: #### H EMDF, BMP3, LFT3, LIPA4, TROPN #### [facility] [address] [place], [place] Bilirubin.direct [Mass/Vol] 0.0 mg/dL Normal 0.0-0.3 [facility] Comment on above: Performed By: #### H EMDF, BMP3, LFT3, LIPA4, TROPN #### [facility] [address] [place], [place] Protein [Mass/Vol] 5.9 g/dL Low 6.3-8.2 [facility] Comment on above: Performed By: #### H EMDF, BMP3, LFT3, LIPA4, TROPN #### [address] [address] [address] [place], [place] Albumin [Mass/Vol] 3.2 g/dL Low 3.5-5.0 [facility] Comment on above: Performed By: #### H EMDF, BMP3, LFT3, LIPA4, TROPN #### [facility] [address] [place], [place] Hepatic Function PanelOrdere d By: Tj Muniz on 02-17-2019 Albumin [Mass/Vol] 3.2 g/dL Low 3.5 - 5 g/dL [facility] Work Phone: ALP [Catalytic activity/Vol] 75 U/L 38 - 126 U/L [facility] Work Phone: [phone] ALT [Catalytic activity/Vol] 60 U/L 13 - 69 U/L [facility] Work Phone: [phone] AST [Catalytic activity/Vol] 62 U/L High 15 - 46 U/L [facility] Work Phone: [phone] Bilirubin [Mass/Vol] 0.5 mg/dL 0.2 - 1 .3 mg/dL [facility] Work Phone: Bilirubin.indirect [Mass/Vol] 0.0 mg/dL 0 - 0.3 mg/dL [facility] Work Phone: Protein [Mass/Vol] 5.9 g/dL Low 6.3 - 8.2 g/dL [facility] Work Phone: Lipaseon 02-17-2019 Lipase [Catalytic activity/Vol] 586 U/L High 23-300 [facility] Comment on above: Performed By: #### H EMDF, BMP3, LFT3, LIPA4, TROPN #### [facility] [address] [place] [address] LipaseOrdered By: Tj Muniz on 02-17-2019 Lipase [Catalytic activity/Vol] 586 U/L High 23 - 300 U/L [facility] Work Phone: No Panel InformationOrdered By: Tj Muniz on 02-17-2019 Interpretation and review of laboratory results Abnormal [facility] Work Phone: Test Performed by [facility], [address] [place] [id number] [place] [address] Work Phone: Basic Metabolic Panelon Calcium [Mass/Vol] 9.4 mg/dL Normal 8.4-10.4 [facility] Comment on above: Performed By: #### H EMDF, BMP3, LFT3, LIPA4, TROPN #### [address] [address] Glucose [Mass/Vol] 182 mg/dL High 70-100 [facility] Comment on above: Performed By: #### H EMDF, BMP3, LFT3, LIPA4, TROPN #### [address] [address] Urea nitrogen [Mass/Vol] 13 mg/dL Normal 7-20 [facility] Comment on above: Performed By: #### H EMDF, BMP3, LFT3, LIPA4, TROPN #### [address] [address] Anion gap [Moles/Vol] 11 Normal [facility] Comment on above: Performed By: #### H EMDF, BMP3, LFT3, LIPA4, TROPN #### [address] CO2 [Moles/Vol] 25 mmol/L Normal 22-30 [facility] Comment on above: Performed By: #### H EMDF, BMP3, LFT3, LIPA4, TROPN #### [address] Creatinine [Mass/Vol] 0.74 mg/dL Normal 0.52-1.25 [facility] Comment on above: Performed By: #### H EMDF, BMP3, LFT3, LIPA4, TROPN #### [address] GFR/1.73 sq M predicted among blacks MDRD (S/P/Bld) [Vol rate/Area] mL/min/{1.73_m2} Normal >60 [facility] Comment on above: Performed By: #### H EMDF, BMP3, LFT3, LIPA4, TROPN #### [address] GFR/1.73 sq M predicted among non-blacks MDRD (S/P/Bld) [Vol rate/Area] mL/min/{1.73_m2} Normal >60 [facility] Comment on above: Result Comment: Sour ce- MDRD equation with creatinine calibration to IDMS(NKDEP) eGFR not recommended for drug dose adjustment Performed By: #### H EMDF, BMP3, LFT3, LIPA4, TROPN #### [address] Potassium [Moles/Vol] 4.2 mmol/L Normal 3.5-5.1 [facility] Comment on above: Performed By: #### H EMDF, BMP3, LFT3, LIPA4, TROPN #### [address] Sodium [Moles/Vol] 140 mmol/L Normal 135-145 [facility] Comment on above: Performed By: #### H EMDF, BMP3, LFT3, LIPA4, TROPN #### [address] [place] [address] Chloride [Moles/Vol] 105 mmol/L Normal 98-107 [facility] Comment on above: Performed By: #### H EMDF, BMP3, LFT3, LIPA4, TROPN #### [facility] [address] [place] [address] Basic Metabolic PanelOrdered By: Sharmila Lr on 02-16-2019 Anion gap [Moles/Vol] 11 mmol/L [facility] Work Phone: [phone] Calcium [Mass/Vol] 9.4 mg/dL 8.4 - 10. 4 mg/dL [facility] Work Phone: [phone] Chloride [Moles/Vol] 105 mmol/L 98 - 10 7 mmol/L [facility] Work Phone: [phone] CO2 [Moles/Vol] 25 mmol/L 22 - 30 mmol/L [facility] Work Phone: [phone] Creatinine [Mass/Vol] 0.74 mg/dL 0.52 - 1.25 mg/dL [facility] Work Phone: [phone] EGFR IF NonAfrican Romanian >60.0 >60 mL/min [facility] Work Phone: [phone] Comment on above: Source- MDRD equatio n with creatinine calibration to IDMS(NKDEP) eGFR not recommended for drug dose adjustment GFR/1.73 sq M.predicted among blacks MDRD (S/P/Bld) [Vol rate/Area] mL/min/{1.73_m2} >60 mL/min [facility] Work Phone: [phone] Glucose [Mass/Vol] 182 mg/dL High 70 - 100 mg/dL [facility] Work Phone: [phone] Potassium [Moles/Vol] 4.2 mmol/L 3.5 - 5.1 mmol/L [facility] Work Phone: [phone] Sodium [Moles/Vol] 140 mmol/L 135 - 145 mmol/L [facility] Work Phone: [phone] Urea nitrogen [Mass/Vol] 13 mg/dL 7 - 20 mg/dL [facility] Work Phone: [phone] CBC Auto DifferentialOrdered By: Sharmila Lr on 02-16-2019 Erythrocyte distribution width (RBC) [Ratio] 12.3 % 11.5 - 14.5 % [employer] Work Phone: 1 Hematocrit (Bld) [Volume fraction] 37.3 % 35 - 47 % [employer] Work Phone: Hemoglobin (Bld) [Mass/Vol] 12.6 g/dL 11.7 - 16 g/dL [employer] Work Phone: [phone] Interpretation and review of laboratory results Abnormal [employer] Work Phone: ) MCH (RBC) [Entitic mass] 32.8 pg 26 - 34 pg [employer] Work Phone: ) MCHC 33.8 % 32 - 36 % [employer] Work Phone: ) MCV (RBC) [Entitic vol] 97.2 fL 79 - 98 fL [employer] Work Phone: ) Platelet mean volume (Bld) [Entitic vol] 10.1 fL 7.4 - 10.4 fL [employer] Work Phone: 1() 222 Platelets (Bld) [#/Vol] 210 10*3/uL 140 - 440 10*3/uL [employer] Work Phone: ) 222 RBC (Bld) [#/Vol] 3.84 10*6/uL 3.8 - 5.2 10*6/uL [employer] Work Phone: 1) 222 WBC (Bld) [#/Vol] 22.3 10*3/uL High 3.6 - 10.7 10*3/uL [employer] Work Phone: 1) Test Performed by [facility], [address] [place] [id number] [facility] Work [facility]: 11 Hemogram w/ [employer]od[employer] 02-16 Erythrocyte distribution width (RBC) [Ratio] 12.3 % Normal 11.5-14.5 [facility] Comment on above: Performed By: #### H EMDF, BMP3, LFT3, LIPA4, TROPN #### [facility] [place] [address] Hematocrit (Bld) [Volume fraction] 37.3 % Normal 35.0-47.0 [facility] Comment on above: Performed By: #### H EMDF, BMP3, LFT3, LIPA4, TROPN #### [address] [place] [address] [place] Hemoglobin (Bld) [Mass/Vol] 12.6 g/dL Normal 11.7-16.0 [facility] Comment on above: Performed By: #### H EMDF, BMP3, LFT3, LIPA4, TROPN #### [address] MCH (RBC) [Entitic mass] 32.8 pg Normal 26.0-34.0 [facility] Comment on above: Performed By: #### H EMDF, BMP3, LFT3, LIPA4, TROPN #### [address] MCHC (RBC) [Mass/Vol] 33.8 % Normal 32.0-36.0 [facility] Comment on above: Performed By: #### H EMDF, BMP3, LFT3, LIPA4, TROPN #### [address] MCV (RBC) [Entitic vol] 97.2 fL Normal 79.0-98.0 [facility] Comment on above: Performed By: #### H EMDF, BMP3, LFT3, LIPA4, TROPN #### [address] Platelet mean volume (Bld) [Entitic vol] 10.1 fL Normal 7.4-10.4 [facility] Comment on above: Performed By: #### H EMDF, BMP3, LFT3, LIPA4, TROPN #### [address] Platelets (Bld) [#/Vol] 210 10*3/uL Normal 140-440 [facility] Comment on above: Performed By: #### H EMDF, BMP3, LFT3, LIPA4, TROPN #### [address], [place] RBC (Bld) [#/Vol] 3.84 10*6/uL Normal 3.80-5.20 [facility] Comment on above: Performed By: #### H EMDF, BMP3, LFT3, LIPA4, TROPN #### [address] WBC (Bld) [#/Vol] 22.3 10*3/uL High 3.6-10.7 [facility] Comment on above: Performed By: #### H EMDF, BMP3, LFT3, LIPA4, TROPN #### [address] [address] Hepatic Functionon 0 ALP [Catalytic activity/Vol] 83 U/L Normal 38-126 [facility] Comment on above: Performed By: #### H EMDF, BMP3, LFT3, LIPA4, TROPN #### [address] ALT [Catalytic activity/Vol] 81 U/L High 13-69 [facility] Comment on above: Performed By: #### H EMDF, BMP3, LFT3, LIPA4, TROPN #### [address] [address] [place], [place] AST [Catalytic activity/Vol] 100 U/L High 15-46 [facility] Comment on above: Performed By: #### H EMDF, BMP3, LFT3, LIPA4, TROPN #### [address] [address] [address] [place], [place] Bilirubin [Mass/Vol] 0.5 mg/dL Normal 0.2-1.3 [facility] Comment on above: Performed By: #### H EMDF, BMP3, LFT3, LIPA4, TROPN #### [address] Protein [Mass/Vol] 6.7 g/dL Normal 6.3-8.2 [facility] Comment on above: Performed By: #### H EMDF, BMP3, LFT3, LIPA4, TROPN #### [facility] [address] [place], [place] Bilirubin.direct [Mass/Vol] 0.0 mg/dL Normal 0.0-0.3 [facility] Comment on above: Performed By: #### H EMDF, BMP3, LFT3, LIPA4, TROPN #### [facility] [address] [place], [place] Albumin [Mass/Vol] 3.9 g/dL Normal 3.5-5.0 [facility] Comment on above: Performed By: #### H EMDF, BMP3, LFT3, LIPA4, TROPN #### [facility] [address] [place], [place] Hepatic Function PanelOrdere d By: Sharmila Lr on 02-16-2019 Albumin [Mass/Vol] 3.9 g/dL 3.5 - 5 g/dL [facility] Work Phone: ALP [Catalytic activity/Vol] 83 U/L 38 - 126 U/L [facility] Work Phone: ALT [Catalytic activity/Vol] 81 U/L High 13 - 69 U/L [facility] Work Phone: [phone] AST [Catalytic activity/Vol] 100 U/L High 15 - 46 U/L [facility] Work Phone: Bilirubin [Mass/Vol] 0.5 mg/dL 0.2 - 1 .3 mg/dL [facility] Work Phone: Bilirubin.indirect [Mass/Vol] 0.0 mg/dL 0 - 0.3 mg/dL [facility] Work Phone: Protein [Mass/Vol] 6.7 g/dL 6.3 - 8.2 g/dL [facility] Work Phone: Lipaseon 02-16-2019 Lipase [Catalytic activity/Vol] 1101 U/L High 23-300 [facility] Comment on above: Performed By: #### H EMDF, BMP3, LFT3, LIPA4, TROPN #### [facility] [address] [place], [place] LipaseOrdered By: Tj Muniz on 02-16-2019 Interpretation and review of laboratory results Abnormal [facility] Work Phone: Lipase [Catalytic activity/Vol] 1101 U/L High 23 - 300 U/L [facility] Work Phone: Test Performed by [facility], [address] [place] [address] [facility] Work Phone: Manual Diffon 02-16-2019 Abs Lymph Cnt 0.9 10*3/uL Low 1.1-4.5 [facility] Comment on above: Performed By: #### H EMDF, BMP3, LFT3, LIPA4, TROPN #### [address] Abs Monocyte Cnt 0.9 10*3/uL Normal 0.2-1.1 [facility] Comment on above: Performed By: #### H EMDF, BMP3, LFT3, LIPA4, TROPN #### [address] Abs Neutrophile Cnt 20.5 10*3/uL High 2.2-8.2 [facility] Comment on above: Performed By: #### H EMDF, BMP3, LFT3, LIPA4, TROPN #### [address] Bands 15 % High 0-3 [facility] Comment on above: Performed By: #### H EMDF, BMP3, LFT3, LIPA4, TROPN #### [address] [address] [place], [place] Lymphocytes 4 % Low 20-40 [facility] Comment on above: Performed By: #### H EMDF, BMP3, LFT3, LIPA4, TROPN #### [address] Monocytes 4 % Normal 2-10 [facility] Comment on above: Performed By: #### H EMDF, BMP3, LFT3, LIPA4, TROPN #### [address] RBC morphology finding Nom (Bld) Normal Normal [facility] Comment on above: Performed By: #### H EMDF, BMP3, LFT3, LIPA4, TROPN #### [address] Seg Neutrophils 77 % Normal 40-80 [facility] Comment on above: Performed By: #### H EMDF, BMP3, LFT3, LIPA4, TROPN #### [address] Abs Baso Cnt 0.0 10*3/uL Normal 0.0-0.2 [facility] Comment on above: Performed By: #### H EMDF, BMP3, LFT3, LIPA4, TROPN #### [address] Abs Eosin Cnt 0.0 10*3/uL Normal 0.0-0.5 [facility] Comment on above: Performed By: #### H EMDF, BMP3, LFT3, LIPA4, TROPN #### [address] Basophils 0 % Normal 0-2 [facility] Comment on above: Performed By: #### H EMDF, BMP3, LFT3, LIPA4, TROPN #### [address] Cells counted 100 Normal [facility] Comment on above: Performed By: #### H EMDF, BMP3, LFT3, LIPA4, TROPN #### [address] Eosinophils 0 % Low 1-6 [facility] Comment on above: Performed By: #### H EMDF, BMP3, LFT3, LIPA4, TROPN #### [address] Manual DifferentialOrdered B y: Lisa Smiley on 02-16-2019 Absolute Baso # 0.0 10*3/uL 0 - 0.2 10*3/uL [facility] Work Phone: Absolute Eos # 0.0 10*3/uL 0 - 0.5 10*3/uL [facility] Work Phone: Absolute Lymph # 0.9 10*3/uL Low 1.1 - 4.5 10*3/uL [facility] Work Phone: [phone] Absolute [place] # 0.9 10*3/uL 0.2 - 1.1 10*3/uL [...] Interpretation and review of laboratory results Abnormal [facility] Work Phone: [phone] Lymphocytes 4 % Low 20 - 40 % [facility] Work Phone: [phone] Monocytes 4 % 2 - 10 % [facility] Work Phone: [phone] RBC Morphology Normal [facility] Work Phone: [phone] Seg Neutrophils 77 % 40 - 80 % [facility] Work Phone: [phone] TOTAL CELLS COUNTED 100 [facility] Work Phone: [phone] Test Performed by [facility], [address] [place] [address] [facility] Work Phone: [phone] Panel InformationOrdered By: Sharmila Lr on 02-16-2019 Interpretation and review of laboratory results Abnormal [facility] Work Phone: Test Performed by [facility], [address] [place] [address] [facility] Work Phone: [phone] Basic Metabolic Panelon Calcium [Mass/Vol] 9.6 mg/dL Normal 8.4-10.4 [facility] Comment on above: Performed By: #### H EMDF, BMP3, LFT3, LIPA4, TROPN #### [facility] [place] [address] Glucose [Mass/Vol] 110 mg/dL High 70-100 [facility] Comment on above: Performed By: #### H EMDF, BMP3, LFT3, LIPA4, TROPN #### [address] [address] [address] [place], [place] Urea nitrogen [Mass/Vol] 10 mg/dL Normal 7-20 [facility] Comment on above: Performed By: #### H EMDF, BMP3, LFT3, LIPA4, TROPN #### [address] [address] [address] [place], [place] Anion gap [Moles/Vol] 8 Normal [facility] Comment on above: Performed By: #### H EMDF, BMP3, LFT3, LIPA4, TROPN #### [address] [address] [address] [place], [place] CO2 [Moles/Vol] 28 mmol/L Normal 22-30 [facility] Comment on above: Performed By: #### H EMDF, BMP3, LFT3, LIPA4, TROPN #### [address] [address] [address] [place], [place] Creatinine [Mass/Vol] 0.87 mg/dL Normal 0.52-1.25 [facility] Comment on above: Performed By: #### H EMDF, BMP3, LFT3, LIPA4, TROPN #### [address] [address] [place], [place] GFR/1.73 sq M predicted among blacks MDRD (S/P/Bld) [Vol rate/Area] mL/min/{1.73_m2} Normal >60 [facility] Comment on above: Performed By: #### H EMDF, BMP3, LFT3, LIPA4, TROPN #### [address] [address] [address] [place], [place] GFR/1.73 sq M predicted among non-blacks MDRD (S/P/Bld) [Vol rate/Area] mL/min/{1.73_m2} Normal >60 [facility] Comment on above: Result Comment: Sour ce- MDRD equation with creatinine calibration to IDMS(NKDEP) eGFR not recommended for drug dose adjustment Performed By: #### H EMDF, BMP3, LFT3, LIPA4, TROPN #### [facility] [address] [place] [address] Chloride [Moles/Vol] 104 mmol/L Normal 98-107 [facility] Comment on above: Performed By: #### H EMDF, BMP3, LFT3, LIPA4, TROPN #### [facility] [address] [place], [place] Potassium [Moles/Vol] 4.0 mmol/L Normal 3.5-5.1 [facility] Comment on above: Performed By: #### H EMDF, BMP3, LFT3, LIPA4, TROPN #### [address] [address] [place] Sodium [Moles/Vol] 141 mmol/L Normal 135-145 [facility] Comment on above: Performed By: #### H EMDF, BMP3, LFT3, LIPA4, TROPN #### [address] [address] [address] [place], [place] Basic Metabolic PanelOrdered By: Mark Chen on 02-15-2019 Anion gap [Moles/Vol] 8 mmol/L [facility] Work Phone: Calcium [Mass/Vol] 9.6 mg/dL 8.4 - 10. 4 mg/dL [facility] Work Phone: Chloride [Moles/Vol] 104 mmol/L 98 - 10 7 mmol/L [facility] Work Phone: CO2 [Moles/Vol] 28 mmol/L 22 - 30 mmol/L [facility] Work Phone: Creatinine [Mass/Vol] 0.87 mg/dL 0.52 - 1.25 mg/dL [facility] Work Phone: [phone] EGFR IF NonAfrican Romanian >60.0 >60 mL/min [facility] Work Phone: Comment on above: Source- MDRD equatio n with creatinine calibration to IDMS(NKDEP) eGFR not recommended for drug dose adjustment GFR/1.73 sq M.predicted among blacks MDRD (S/P/Bld) [Vol rate/Area] mL/min/{1.73_m2} >60 mL/min [facility] Work Phone: [phone] Glucose [Mass/Vol] 110 [...] # 0.1 10*3/uL 0 - 0.2 10*3/uL [facility] Work Phone: [phone] Absolute Neut # 5.0 10*3/uL 1.8 - 7 10*3/uL [facility] Work Phone: [phone] Basophils/100 WBC (Bld) 0.9 % 0 - 2 % [facility] Work Phone: [phone] Eosinophils (Bld) [#/Vol] 0.2 10*3/uL 0 - 0.5 10*3/uL [facility] Work Phone: [phone] Eosinophils/100 WBC (Bld) 3.0 % 1 - 6 % [facility] Work Phone: [phone] Erythrocyte distribution width [...] [#/Vol] 1.6 10*3/uL 1 - 4.3 10*3/uL [facility] Work Phone: [phone] Lymphocytes/100 WBC (Bld) [...] Work Phone: [phone] Test Performed by [address] [address] [facility] Work Phone: [phone] FL ERCP BILIARY AND PANCREAT IC S&IOrdered By: Lisa Smiley on 02-15-2019 Patient Name: PREMA VILLALPANDO ---Fluoroscopy--- Exam Date/Time 02/15/2019 08:51:55 EST Exam RF ERCP Biliary and Pancreatic Duct Ordering Physician [id number] LISA RODRIGEZ Accession Number [id number] [facility]4 Codes 75611 () Reason For Exam cbd stones Report [...] Time: 02/15/2019 8:39 [facility] Work Phone: [facility] From [facility] - 02/15/2019 8:52 AM EST Patient Name: PREMA VILLALPANDO ---Fluoroscopy--- Exam Date/Time 02/15/2019 08:51:55 EST Exam RF ERCP Biliary and Pancreatic Duct Ordering Physician LISA RICH Accession Number [id number] [facility] Codes 51523 () Reason For Exam cbd stones Report [...] JEFFREY Transcribed Date and Time: 02/15/2019 8:39 [facility] Work Phone: Hemogram w/ Autodiffon 02-15 Abs Baso Cnt 0.1 10*3/uL Normal 0.0-0.2 [facility] Comment on above: Performed By: #### H EMDF, BMP3, LFT3, LIPA4, TROPN #### [address] Abs Neutrophile Cnt 5.0 10*3/uL Normal 1.8-7.0 [facility] Comment on above: Performed By: #### H EMDF, BMP3, LFT3, LIPA4, TROPN #### [address] Basophils/100 WBC (Bld) 0.9 % Normal 0.0-2.0 [facility] Comment on above: Performed By: #### H EMDF, BMP3, LFT3, LIPA4, TROPN #### [address] Eosinophils (Bld) [#/Vol] 0.2 10*3/uL Normal 0.0-0.5 [facility] Comment on above: Performed By: #### H EMDF, BMP3, LFT3, LIPA4, TROPN #### [address] Eosinophils/100 WBC (Bld) 3.0 % Normal 1.0-6.0 [facility] Comment on above: Performed By: #### H EMDF, BMP3, LFT3, LIPA4, TROPN #### [address] Erythrocyte distribution width (RBC) [Ratio] 12.1 % Normal 11.5-14.5 [facility] Comment on above: Performed By: #### H EMDF, BMP3, LFT3, LIPA4, TROPN #### [address] Granulocytes/100 WBC (Bld) 67.7 % Normal 40.0-80.0 [facility] Comment on above: Performed By: #### H EMDF, BMP3, LFT3, LIPA4, TROPN #### [address] Hematocrit (Bld) [Volume fraction] 36.6 % Normal 35.0-47.0 [facility] Comment on above: Performed By: #### H EMDF, BMP3, LFT3, LIPA4, TROPN #### [address] [address] [place] Hemoglobin (Bld) [Mass/Vol] 12.8 g/dL Normal 11.7-16.0 [facility] Comment on above: Performed By: #### H EMDF, BMP3, LFT3, LIPA4, TROPN #### [address] Lymphocytes (Bld) [#/Vol] 1.6 10*3/uL Normal 1.0-4.3 [facility] Comment on above: Performed By: #### H EMDF, BMP3, LFT3, LIPA4, TROPN #### [address] Lymphocytes/100 WBC (Bld) 21.4 % Normal 20.0-40.0 [facility] Comment on above: Performed By: #### H EMDF, BMP3, LFT3, LIPA4, TROPN #### [address] MCH (RBC) [Entitic mass] 32.9 pg Normal 26.0-34.0 [facility] Comment on above: Performed By: #### H EMDF, BMP3, LFT3, LIPA4, TROPN #### [address] MCHC (RBC) [Mass/Vol] 34.8 % Normal 32.0-36.0 [facility] Comment on above: Performed By: #### H EMDF, BMP3, LFT3, LIPA4, TROPN #### [address] [address] [address] [place], [place] MCV (RBC) [Entitic vol] 94.4 fL Normal 79.0-98.0 [facility] Comment on above: Performed By: #### H EMDF, BMP3, LFT3, LIPA4, TROPN #### [address] [address] [place] Monocytes (Bld) [#/Vol] 0.5 10*3/uL Normal 0.0-0.8 [facility] Comment on above: Performed By: #### H EMDF, BMP3, LFT3, LIPA4, TROPN #### [address] Monocytes/100 WBC (Bld) 7.0 % Normal 2.0-10.0 [facility] Comment on above: Performed By: #### H EMDF, BMP3, LFT3, LIPA4, TROPN #### [address] Platelet mean volume (Bld) [Entitic vol] 10.3 fL Normal 7.4-10.4 [facility] Comment on above: Performed By: #### H EMDF, BMP3, LFT3, LIPA4, TROPN #### [address] Platelets (Bld) [#/Vol] 223 10*3/uL Normal 140-440 [facility] Comment on above: Performed By: #### H EMDF, BMP3, LFT3, LIPA4, TROPN #### [address] [address] [address] [place], [place] RBC (Bld) [#/Vol] 3.88 10*6/uL Normal 3.80-5.20 [facility] Comment on above: Performed By: #### H EMDF, BMP3, LFT3, LIPA4, TROPN #### [address] WBC (Bld) [#/Vol] 7.4 10*3/uL Normal 3.6-10.7 [facility] Comment on above: Performed By: #### H EMDF, BMP3, LFT3, LIPA4, TROPN #### [facility] [address] [place], [place] Hepatic Functionon 0 ALP [Catalytic activity/Vol] 94 U/L Normal 38-126 [facility] Comment on above: Performed By: #### H EMDF, BMP3, LFT3, LIPA4, TROPN #### [address] [address] [address] [place], [place] ALT [Catalytic activity/Vol] 76 U/L High 13-69 [facility] Comment on above: Performed By: #### H EMDF, BMP3, LFT3, LIPA4, TROPN #### [address] [address] [address] [place], [place] AST [Catalytic activity/Vol] 80 U/L High 15-46 [facility] Comment on above: Performed By: #### H EMDF, BMP3, LFT3, LIPA4, TROPN #### [address] [address] [address] [place], [place] Bilirubin [Mass/Vol] 0.6 mg/dL Normal 0.2-1.3 [facility] Comment on above: Performed By: #### H EMDF, BMP3, LFT3, LIPA4, TROPN #### [address] [address] [address] [place], [place] Protein [Mass/Vol] 7.0 g/dL Normal 6.3-8.2 [facility] Comment on above: Performed By: #### H EMDF, BMP3, LFT3, LIPA4, TROPN #### [address] [address] [address] [place], [place] Bilirubin.direct [Mass/Vol] 0.0 mg/dL Normal 0.0-0.3 [facility] Comment on above: Performed By: #### H EMDF, BMP3, LFT3, LIPA4, TROPN #### [address] [address] [address] [place], [place] Albumin [Mass/Vol] 3.7 g/dL Normal 3.5-5.0 [facility] Comment on above: Performed By: #### H EMDF, BMP3, LFT3, LIPA4, TROPN #### [address] [address] Hepatic Function PanelOrdere d By: Sharmila Lr on 02-15-2019 Albumin [Mass/Vol] 3.7 g/dL 3.5 - 5 g/dL [facility] Work Phone: ALP [Catalytic activity/Vol] 94 U/L 38 - 126 U/L [facility] Work Phone: ALT [Catalytic activity/Vol] 76 U/L High 13 - 69 U/L [facility] Work Phone: AST [Catalytic activity/Vol] 80 U/L High 15 - 46 U/L [facility] Work Phone: Bilirubin [Mass/Vol] 0.6 mg/dL 0.2 - 1 .3 mg/dL [facility] Work Phone: Bilirubin.indirect [Mass/Vol] 0.0 mg/dL 0 - 0.3 mg/dL [facility] Work Phone: Protein [Mass/Vol] 7.0 g/dL 6.3 - 8.2 g/dL [facility] Work Phone: No Panel InformationOrdered By: Mark Chen on 02-15-2019 Interpretation and review of laboratory results Abnormal [facility] Work Phone: Test Performed by [facility], [address] [place] [address] [facility] Work Phone: RF ERCP Biliary and Pancreat ic Ducton 02-15-2019 RF ERCP Biliary and Pancreatic Duct Patient Name: PREMA VILLALPANDO Fluoroscopy Exam Date/Time 02/15/2019 08:51:55 EST Exam RF ERCP Biliary and Pancreatic Duct Ordering Physician LSIA RICH Accession Number [id number] [facility] Codes 29306 () Reason For Exam cbd stones Report [...] Transcribed Date and Time: 02/15/2019 8:39 Normal [facility] Surgical Pathologyon 0[address]ology [address] [facility] PATHOLOGY AND LABORATORY MEDICINE [address] [place] [address] FINAL SURGICAL PATHOLOGY REPORT NAME: PREMA VILLALPANDO : 1940 78 Y F BILLING NO.: [id number] LOCATION: [facility] 5125 [id number] PROCEDURE 02/15/2019 DATE: SURGEON: [...] are identified impacted within the cystic duct. Measurer Machine sections are submitted in a single cassette. (bits ss, 1) MAUREENK/TRELL Disclaimer: The following statement applies to all immunohistochemistry, in situ hybridization, molecular studies, and immunofluorescence testing. The use of one or more reagents in the above tests is regulated as an analyte specific reagent (ASR). These tests were developed and their performance characteristics determined by the clinical laboratories of [facility]. They have not been cleared by [...] negativity on decalcified specimens. Professional Performing Location: [address] [address]. DEPARTMENT OF PATHOLOGY AND LABORATORY MEDICINE [place], [place] [address] Normal [facility] TS GELon 02-15-2019 TS GEL ABO Group: O Rh, Gel: POS Antibody Screen Gel: NEG Normal [facility] Comment on above: Performed By: #### H EMDF, BMP3, LFT3, LIPA4, TROPN #### [facility] [address] [place], [place] TYPE AND SCREENOrdered By: Tyrone Chen on 02-15-2019 ABO Grouping O [facility] Work Phone: Rh Type Positive [facility] Work Phone: Comment on above: Test Performed by [facility], [address] [place] [address] Test Performed by [facility], [address] [place] [id number] [place] [address] Work Phone: Potassiumon 02-14-2019 Potassium [Moles/Vol] 3.8 mmol/L Normal 3.5-5.1 [facility] Comment on above: Performed By: #### H EMDF, BMP3, LFT3, LIPA4, TROPN #### [facility] [employer] [address] [place] [address] PotassiumOrdered By: Luciano Muniz on 02-14-2019 Potassium [Moles/Vol] 3.8 mmol/L 3.5 - 5.1 mmol/L [facility] Work Phone: Test Performed by [facility], [address] [place] [address] [facility] Work Phone: Basic Metabolic Panelon Anion gap [Moles/Vol] 7 Normal [facility] Comment on above: Performed By: #### H EMDF, BMP3, LFT3, LIPA4, TROPN #### [facility] [employer] [facility] [address] [place] Calcium [Mass/Vol] 9.0 mg/dL Normal 8.4-10.4 [facility] Comment on above: Performed By: #### H EMDF, BMP3, LFT3, LIPA4, TROPN #### [facility] [place] CO2 [Moles/Vol] 26 mmol/L Normal 22-30 [facility] Comment on above: Performed By: #### H EMDF, BMP3, LFT3, LIPA4, TROPN #### [facility] [address] [place], [place] Glucose [Mass/Vol] 93 mg/dL Normal 70-100 [facility] Comment on above: Performed By: #### H EMDF, BMP3, LFT3, LIPA4, TROPN #### [address] [address] [address] [place], [place] Urea nitrogen [Mass/Vol] 6 mg/dL Low 7-20 [facility] Comment on above: Performed By: #### H EMDF, BMP3, LFT3, LIPA4, TROPN #### [address] [address] [address] [place], [place] Creatinine [Mass/Vol] 0.68 mg/dL Normal 0.52-1.25 [facility] Comment on above: Performed By: #### H EMDF, BMP3, LFT3, LIPA4, TROPN #### [address] [address] [address] [place], [place] GFR/1.73 sq M predicted among blacks MDRD (S/P/Bld) [Vol rate/Area] mL/min/{1.73_m2} Normal >60 [facility] Comment on above: Performed By: #### H EMDF, BMP3, LFT3, LIPA4, TROPN #### [address] [address] [address] [place], [place] GFR/1.73 sq M predicted among non-blacks MDRD (S/P/Bld) [Vol rate/Area] mL/min/{1.73_m2} Normal >60 [facility] Comment on above: Result Comment: Sour ce- MDRD equation with creatinine calibration to IDMS(NKDEP) eGFR not recommended for drug dose adjustment Performed By: #### H EMDF, BMP3, LFT3, LIPA4, TROPN #### [address] [address] [address] [place], [place] Chloride [Moles/Vol] 108 mmol/L High 98-107 [facility] Comment on above: Performed By: #### H EMDF, BMP3, LFT3, LIPA4, TROPN #### [facility] [address] [place], [place] Potassium [Moles/Vol] 3.4 mmol/L Low 3.5-5.1 [facility] Comment on above: Performed By: #### H EMDF, BMP3, LFT3, LIPA4, TROPN #### [facility] [address] [place], [place] Sodium [Moles/Vol] 142 mmol/L Normal 135-145 [facility] Comment on above: Performed By: #### H EMDF, BMP3, LFT3, LIPA4, TROPN #### [address] [place], [place] Basic Metabolic Panel w/ Ref tere to MGOrdered By: Gem Lowery on 02-13-2019 Anion gap [Moles/Vol] 7 mmol/L [facility] Work Phone: Calcium [Mass/Vol] 9.0 mg/dL 8.4 - 10. 4 mg/dL [facility] Work Phone: Chloride [Moles/Vol] 108 mmol/L High 98 - 10 7 mmol/L [facility] Work Phone: CO2 [Moles/Vol] 26 mmol/L 22 - 30 mmol/L [facility] Work Phone: [phone] Creatinine [Mass/Vol] 0.68 mg/dL 0.52 - 1.25 mg/dL [facility] Work Phone: [phone] EGFR IF NonAfrican Romanian >60.0 >60 mL/min [facility] Work Phone: Comment on above: Source- MDRD equatio n with creatinine calibration to IDMS(NKDEP) eGFR not recommended for drug dose adjustment GFR/1.73 sq M.predicted among blacks MDRD (S/P/Bld) [Vol rate/Area] mL/min/{1.73_m2} >60 mL/min [facility] Work Phone: Glucose [Mass/Vol] 93 mg/dL 70 - 100 mg/dL [facility] Work Phone: [phone] Potassium [Moles/Vol] 3.4 mmol/L Low 3.5 - 5.1 mmol/L [facility] Work Phone: [phone] Sodium [Moles/Vol] 142 mmol/L 135 - 145 mmol/L [facility] Work Phone: [phone]) 222 Urea nitrogen [Mass/Vol] 6 mg/dL Low 7 - 20 mg/dL [facility] Work Phone: [phone]) 222 CBC Auto DifferentialOrdered By: Gem Lowery on 02-13-2019 Absolute Baso # 0.1 10*3/uL 0 - 0.2 10*3/uL [facility] Work Phone: [phone]) 222 Absolute Neut # 3.9 10*3/uL 1.8 - 7 10*3/uL [facility] Work Phone: [phone]) 222 Basophils/100 WBC (Bld) 1.1 % 0 - 2 % [facility] Work Phone: 222 Eosinophils (Bld) [#/Vol] 0.2 10*3/uL 0 - 0.5 10*3/uL [facility] Work Phone: [phone]) 222 Eosinophils/100 WBC (Bld) 3.4 % 1 - 6 % [facility] Work Phone: [phone]) 222 Erythrocyte distribution width (RBC) [Ratio] 12.3 % 11.5 - 14.5 % [facility] Work Phone: ) 222 Granulocytes/100 WBC (Bld) 68.3 % 40 - 80 % [facility] Work Phone: ) 222 Hematocrit (Bld) [Volume fraction] 32.8 % Low 35 - 47 % [facility] Work Phone: ) 222 Hemoglobin (Bld) [Mass/Vol] 11.6 g/dL Low 11.7 - 16 g/dL [facility] Work Phone: [phone]) 222 Interpretation and review of laboratory results Abnormal [facility] Work Phone: ) 222 Lymphocytes (Bld) [#/Vol] 1.1 10*3/uL 1 - 4.3 10*3/uL [facility] Work Phone: [phone] Lymphocytes/100 WBC (Bld) 18.6 % Low 20 - 40 % [facility] Work Phone: [phone] MCH (RBC) [Entitic mass] 33.3 pg 26 - 34 pg [facility] Work Phone: [phone] MCHC 35.2 % 32 - 36 % [facility] Work Phone: [phone] MCV (RBC) [Entitic vol] 94.4 fL 79 - 98 fL [facility] Work Phone: [phone] Monocytes (Bld) [#/Vol] 0.5 10*3/uL 0 - 0.8 10*3/uL [facility] Work Phone: [phone] Monocytes/100 WBC (Bld) 8.6 % 2 - 10 % [facility] Work Phone: [phone] Platelet mean volume (Bld) [Entitic vol] 10.1 fL 7.4 - 10.4 fL [facility] Work Phone: [phone] Platelets (Bld) [#/Vol] 196 10*3/uL 140 - 440 10*3/uL [facility] Work Phone: [phone] RBC (Bld) [#/Vol] 3.48 10*6/uL Low 3.8 - 5.2 10*6/uL [facility] Work Phone: [phone] WBC (Bld) [#/Vol] 5.7 10*3/uL 3.6 - 10.7 10*3/uL [facility] Work Phone: [phone] Test Performed by [facility], [address] [place] [id number] [facility] Work Phone: [phone] Hemogram w/ Autodiffon 02-13 Abs Baso Cnt 0.1 10*3/uL Normal 0.0-0.2 [facility] Comment on above: Performed By: #### H EMDF, BMP3, LFT3, LIPA4, TROPN #### [facility] [address] [place] [phone] Abs Neutrophile Cnt 3.9 10*3/uL Normal 1.8-7.[address] [facility] Comment on above: Performed By: #### H EMDF, BMP3, LFT3, LIPA4, TROPN #### [address] [address] [place], [place] Basophils/100 WBC (Bld) 1.1 % Normal 0.0-2.0 [facility] Comment on above: Performed By: #### H EMDF, BMP3, LFT3, LIPA4, TROPN #### [address] Eosinophils (Bld) [#/Vol] 0.2 10*3/uL Normal 0.0-0.5 [facility] Comment on above: Performed By: #### H EMDF, BMP3, LFT3, LIPA4, TROPN #### [address] Eosinophils/100 WBC (Bld) 3.4 % Normal 1.0-6.0 [facility] Comment on above: Performed By: #### H EMDF, BMP3, LFT3, LIPA4, TROPN #### [address] Erythrocyte distribution width (RBC) [Ratio] 12.3 % Normal 11.5-14.5 [facility] Comment on above: Performed By: #### H EMDF, BMP3, LFT3, LIPA4, TROPN #### [address] Granulocytes/100 WBC (Bld) 68.3 % Normal 40.0-80.0 [facility] Comment on above: Performed By: #### H EMDF, BMP3, LFT3, LIPA4, TROPN #### [address] Hematocrit (Bld) [Volume fraction] 32.8 % Low 35.0-47.0 [facility] Comment on above: Performed By: #### H EMDF, BMP3, LFT3, LIPA4, TROPN #### [address] [address] [place], [place] Hemoglobin (Bld) [Mass/Vol] 11.6 g/dL Low 11.7-16.0 [facility] Comment on above: Performed By: #### H EMDF, BMP3, LFT3, LIPA4, TROPN #### [address] [address] [place], [place] Lymphocytes (Bld) [#/Vol] 1.1 10*3/uL Normal 1.0-4.3 [facility] Comment on above: Performed By: #### H EMDF, BMP3, LFT3, LIPA4, TROPN #### [address] Lymphocytes/100 WBC (Bld) 18.6 % Low 20.0-40.0 [facility] Comment on above: Performed By: #### H EMDF, BMP3, LFT3, LIPA4, TROPN #### [address] MCH (RBC) [Entitic mass] 33.3 pg Normal 26.0-34.0 [facility] Comment on above: Performed By: #### H EMDF, BMP3, LFT3, LIPA4, TROPN #### [address] MCHC (RBC) [Mass/Vol] 35.2 % Normal 32.0-36.0 [facility] Comment on above: Performed By: #### H EMDF, BMP3, LFT3, LIPA4, TROPN #### [address] MCV (RBC) [Entitic vol] 94.4 fL Normal 79.0-98.0 [facility] Comment on above: Performed By: #### H EMDF, BMP3, LFT3, LIPA4, TROPN #### [address] Monocytes (Bld) [#/Vol] 0.5 10*3/uL Normal 0.0-0.8 [facility] Comment on above: Performed By: #### H EMDF, BMP3, LFT3, LIPA4, TROPN #### [address] Monocytes/100 WBC (Bld) 8.6 % Normal 2.0-10.0 [facility] Comment on above: Performed By: #### H EMDF, BMP3, LFT3, LIPA4, TROPN #### [address] [address] [address] [place], [place] Platelet mean volume (Bld) [Entitic vol] 10.1 fL Normal 7.4-10.4 [facility] Comment on above: Performed By: #### H EMDF, BMP3, LFT3, LIPA4, TROPN #### [address] [address] [address] [place], [place] Platelets (Bld) [#/Vol] 196 10*3/uL Normal 140-440 [facility] Comment on above: Performed By: #### H EMDF, BMP3, LFT3, LIPA4, TROPN #### [address] [address] [address] [place], [place] RBC (Bld) [#/Vol] 3.48 10*6/uL Low 3.80-5.20 [facility] Comment on above: Performed By: #### H EMDF, BMP3, LFT3, LIPA4, TROPN #### [address] [address] [address] [place], [place] WBC (Bld) [#/Vol] 5.7 10*3/uL Normal 3.6-10.7 [facility] Comment on above: Performed By: #### H EMDF, BMP3, LFT3, LIPA4, TROPN #### [address] [address] [place] [place], [place] Hepatic Functionon 0 ALP [Catalytic activity/Vol] 77 U/L Normal 38-126 [facility] Comment on above: Performed By: #### H EMDF, BMP3, LFT3, LIPA4, TROPN #### [address] [address] [address] [place], [place] ALT [Catalytic activity/Vol] 66 U/L Normal 13-69 [facility] Comment on above: Performed By: #### H EMDF, BMP3, LFT3, LIPA4, TROPN #### [address] [address] [place], [place] AST [Catalytic activity/Vol] 62 U/L High 15-46 [facility] Comment on above: Performed By: #### H EMDF, BMP3, LFT3, LIPA4, TROPN #### [facility] [address] [place], [place] Bilirubin [Mass/Vol] 0.7 mg/dL Normal 0.2-1.3 [facility] Comment on above: Performed By: #### H EMDF, BMP3, LFT3, LIPA4, TROPN #### [address] [address] [address] [place], [place] Protein [Mass/Vol] 5.8 g/dL Low 6.3-8.2 [facility] Comment on above: Performed By: #### H EMDF, BMP3, LFT3, LIPA4, TROPN #### [address] [address] [address] [place], [place] Bilirubin.direct [Mass/Vol] 0.0 mg/dL Normal 0.0-0.3 [facility] Comment on above: Performed By: #### H EMDF, BMP3, LFT3, LIPA4, TROPN #### [address] [address] [address] [place], [place] Albumin [Mass/Vol] 3.0 g/dL Low 3.5-5.0 [facility] Comment on above: Performed By: #### H EMDF, BMP3, LFT3, LIPA4, TROPN #### [address] [address] [address] [place], [place] Hepatic Function PanelOrdere d By: Gem Lowery on 02-13-2019 Albumin [Mass/Vol] 3.0 g/dL Low 3.5 - 5 g/dL [facility] Work Phone: ALP [Catalytic activity/Vol] 77 U/L 38 - 126 U/L [facility] Work Phone: ALT [Catalytic activity/Vol] 66 U/L 13 - 69 U/L [facility] Work Phone: AST [Catalytic activity/Vol] 62 U/L High 15 - 46 U/L [facility] Work Phone: [phone] Bilirubin [Mass/Vol] 0.7 mg/dL 0.2 - 1 .3 mg/dL [facility] Work Phone: [phone] Bilirubin.indirect [Mass/Vol] 0.0 mg/dL 0 - 0.3 mg/dL [facility] Work Phone: [phone] Protein [Mass/Vol] 5.8 g/dL Low 6.3 - 8.2 g/dL [facility] Work Phone: [phone] Magnesiumon 02-13-2019 Magnesium [Mass/Vol] 1.7 mg/dL Normal 1.6-2.[address] [facility] Comment on above: Performed By: #### H EMDF, BMP3, LFT3, LIPA4, TROPN #### [facility] [address] [place] [phone] MagnesiumOrdered By: Maria C Lowery on 02-13-2019 Magnesium [Mass/Vol] 1.7 mg/dL 1.6 - 2 .3 mg/dL [facility] Work Phone: [phone] Test Performed by [facility], [address] [place] [address] [facility] Work Phone: [phone] No Panel InformationOrdered By: Gem Lowery on 02-13-2019 Interpretation and review of laboratory results Abnormal [facility] Work Phone: [phone] Test Performed by [facility], [address] [place] [address] [facility] Work Phone: [phone] Add On Lab TestOrdered By: Juana Lowery on 02-12-2019 Add On Accepted [facility] Work Phone: [phone] Comment on above: Specimen available & acceptable for analysis. Test Performed by [facility], [address] [place] [address] [facility] Work Phone: Add on test from HISon 02-12 Add on test from HIS Accepted Normal [facility] Comment on above: Result Comment: Spec imen available & acceptable for analysis. Performed By: #### H EMDF, BMP3, LFT3, LIPA4, TROPN #### [facility] [address] [place] [address] Bilirubin, DirectOrdered By: Sonny Peres on 02-12-2019 Bilirubin.indirect [Mass/Vol] 0.0 mg/dL 0 - 0.3 mg/dL [employer] Work Phone: [phone] Bilirubin,Directon 0 Bilirubin.direct [Mass/Vol] 0.0 mg/dL Normal 0.0-0.3 [facility] Comment on above: Performed By: #### H EMDF, BMP3, LFT3, LIPA4, TROPN #### [facility] [address] [place] [address] CBC auto differentialOrdered By: Sonny Peres on 02-12-2019 Absolute Baso # 0.1 10*3/uL 0 - 0.2 10*3/uL [facility] Work Phone: [phone] Absolute Neut # 4.0 10*3/uL 1.8 - 7 10*3/uL [facility] Work Phone: [phone] Basophils/100 WBC (Bld) 0.9 % 0 - 2 % [facility] Work Phone: [phone] Eosinophils (Bld) [#/Vol] 0.2 10*3/uL 0 - 0.5 10*3/uL [facility] Work Phone: [phone] Eosinophils/100 WBC (Bld) 3.4 % 1 - 6 % [facility] Work Phone: [phone] Erythrocyte distribution width (RBC) [Ratio] 12.4 % 11.5 - 14.5 % [facility] Work Phone: [phone] Granulocytes/100 WBC (Bld) 71.5 % 40 - 80 % [facility] Work Phone: [phone] Hematocrit (Bld) [Volume fraction] 32.5 % Low 35 - 47 % [employer] Work Phone: 222 Hemoglobin (Bld) [Mass/Vol] 11.1 g/dL Low 11.7 - 16 g/dL [facility] Work Phone: [phone] Interpretation and review of laboratory results Abnormal [employer] Work Phone: Lymphocytes (Bld) [#/Vol] 1.0 10*3/uL 1 - 4.3 10*3/uL [facility] Work Phone: [phone] Lymphocytes/100 WBC (Bld) 17.7 % Low 20 - 40 % [facility] Work Phone: [phone] MCH (RBC) [Entitic mass] 33.0 pg 26 - 34 pg [facility] Work Phone: [phone] MCHC 34.2 % 32 - 36 % [facility] Work Phone: [phone] MCV (RBC) [Entitic vol] 96.5 fL 79 - 98 fL [facility] Work Phone: [phone] Monocytes (Bld) [#/Vol] 0.4 10*3/uL 0 - 0.8 10*3/uL [facility] Work Phone: [phone] Monocytes/100 WBC (Bld) 6.5 % 2 - 10 % [facility] Work Phone: [phone] Platelet mean volume (Bld) [Entitic vol] 10.3 fL 7.4 - 10.4 fL [facility] Work Phone: [phone] Platelets (Bld) [#/Vol] 163 10*3/uL 140 - 440 10*3/uL [facility] Work Phone: [phone] RBC (Bld) [#/Vol] 3.37 10*6/uL Low 3.8 - 5.2 10*6/uL [facility] Work Phone: [phone] WBC (Bld) [#/Vol] 5.5 10*3/uL 3.6 - 10.7 10*3/uL [facility] Work Phone: [phone] Test Performed by [facility], [address] [place] [address] [facility] Work Phone: [phone] Comp Panel with Mg Reflexon 02-12-2019 ALP [Catalytic activity/Vol] 86 U/L Normal 38-126 [facility] Comment on above: Performed By: #### H EMDF, BMP3, LFT3, LIPA4, TROPN #### [facility] [address] [place] [address] ALT [Catalytic activity/Vol] 81 U/L High 13-69 [facility] Comment on above: Performed By: #### H EMDF, BMP3, LFT3, LIPA4, TROPN #### [address] [address] [address] [place], [place] Anion gap [Moles/Vol] 4 Normal [facility] Comment on above: Performed By: #### H EMDF, BMP3, LFT3, LIPA4, TROPN #### [address] [address] [address] [place], [place] AST [Catalytic activity/Vol] 87 U/L High 15-46 [facility] Comment on above: Performed By: #### H EMDF, BMP3, LFT3, LIPA4, TROPN #### [address] [address] [address] [place], [place] Bilirubin [Mass/Vol] 0.6 mg/dL Normal 0.2-1.3 [facility] Comment on above: Performed By: #### H EMDF, BMP3, LFT3, LIPA4, TROPN #### [address] [address] [address] [place], [place] Calcium [Mass/Vol] 8.8 mg/dL Normal 8.4-10.4 [facility] Comment on above: Performed By: #### H EMDF, BMP3, LFT3, LIPA4, TROPN #### [address] [address] [address] [place], [place] CO2 [Moles/Vol] 27 mmol/L Normal 22-30 [facility] Comment on above: Performed By: #### H EMDF, BMP3, LFT3, LIPA4, TROPN #### [address] [address] [address] [place], [place] Glucose [Mass/Vol] 84 mg/dL Normal 70-100 [facility] Comment on above: Performed By: #### H EMDF, BMP3, LFT3, LIPA4, TROPN #### [address] [address] [address] [place], [place] Protein [Mass/Vol] 5.5 g/dL Low 6.3-8.2 [facility] Comment on above: Performed By: #### H EMDF, BMP3, LFT3, LIPA4, TROPN #### [address] [address] [place] Urea nitrogen [Mass/Vol] 11 mg/dL Normal 7-20 [facility] Comment on above: Performed By: #### H EMDF, BMP3, LFT3, LIPA4, TROPN #### [address] [address] [place] Creatinine [Mass/Vol] 0.78 mg/dL Normal 0.52-1.25 [facility] Comment on above: Performed By: #### H EMDF, BMP3, LFT3, LIPA4, TROPN #### [address] GFR/1.73 sq M predicted among blacks MDRD (S/P/Bld) [Vol rate/Area] mL/min/{1.73_m2} Normal >60 [facility] Comment on above: Performed By: #### H EMDF, BMP3, LFT3, LIPA4, TROPN #### [address] [address] [place], [place] GFR/1.73 sq M predicted among non-blacks MDRD (S/P/Bld) [Vol rate/Area] mL/min/{1.73_m2} Normal >60 [facility] Comment on above: Result Comment: Sour ce- MDRD equation with creatinine calibration to IDMS(NKDEP) eGFR not recommended for drug dose adjustment Performed By: #### H EMDF, BMP3, LFT3, LIPA4, TROPN #### [address] Albumin [Mass/Vol] 2.9 g/dL Low 3.5-5.0 [facility] Comment on above: Performed By: #### H EMDF, BMP3, LFT3, LIPA4, TROPN #### [address] Chloride [Moles/Vol] 110 mmol/L High 98-107 [facility] Comment on above: Performed By: #### H EMDF, BMP3, LFT3, LIPA4, TROPN #### [facility] [address] [place], [place] Potassium [Moles/Vol] 3.6 mmol/L Normal 3.5-5.1 [facility] Comment on above: Performed By: #### H EMDF, BMP3, LFT3, LIPA4, TROPN #### [facility] [address] [place], [place] Sodium [Moles/Vol] 142 mmol/L Normal 135-145 [facility] Comment on above: Performed By: #### H EMDF, BMP3, LFT3, LIPA4, TROPN #### [facility] [address] [place], [place] Comprehensive Metabolic Pane l w/ Reflex to MGOrdered By: Sonny Peres on 02-12-2019 Albumin [Mass/Vol] 2.9 g/dL Low 3.5 - 5 g/dL [facility] Work Phone: [phone] ALP [Catalytic activity/Vol] 86 U/L 38 - 126 U/L [facility] Work Phone: [phone] ALT [Catalytic activity/Vol] 81 U/L High 13 - 69 U/L [facility] Work Phone: [phone] Anion gap [Moles/Vol] 4 mmol/L [facility] Work Phone: [phone] AST [Catalytic activity/Vol] 87 U/L High 15 - 46 U/L [facility] Work Phone: [phone] Bilirubin [Mass/Vol] 0.6 mg/dL 0.2 - 1 .3 mg/dL [facility] Work Phone: [phone] Calcium [Mass/Vol] 8.8 mg/dL 8.4 - 10. 4 mg/dL [facility] Work Phone: [phone] Chloride [Moles/Vol] 110 mmol/L High 98 - 10 7 mmol/L [facility] Work Phone: ) [phone] CO2 [Moles/Vol] 27 mmol/L 22 - 30 mmol/L [facility] Work Phone: [phone] Creatinine [Mass/Vol] 0.78 mg/dL 0.52 - 1.25 mg/dL [facility] Work Phone: EGFR IF NonAfrican Romanian >60.0 >60 mL/min [facility] Work Phone: Comment on above: Source- MDRD equatio n with creatinine calibration to IDMS(NKDEP) eGFR not recommended for drug dose adjustment GFR/1.73 sq M.predicted among blacks MDRD (S/P/Bld) [Vol rate/Area] mL/min/{1.73_m2} >60 mL/min [facility] Work Phone: Glucose [Mass/Vol] 84 mg/dL 70 - 100 mg/dL [facility] Work Phone: Interpretation and review of laboratory results Abnormal [facility] Work Phone: Potassium [Moles/Vol] 3.6 mmol/L 3.5 - 5.1 mmol/L [facility] Work Phone: Protein [Mass/Vol] 5.5 g/dL Low 6.3 - 8.2 g/dL [facility] Work Phone: Sodium [Moles/Vol] 142 mmol/L 135 - 145 mmol/L [facility] Work Phone: Urea nitrogen [Mass/Vol] 11 mg/dL 7 - 20 mg/dL [facility] Work Phone: Test Performed by [facility], [address] [place] [address] [facility] Work Phone: Hemogram w/ Autodiffon 02-12 Abs Baso Cnt 0.1 10*3/uL Normal 0.0-0.2 [facility] Comment on above: Performed By: #### H EMDF, BMP3, LFT3, LIPA4, TROPN #### [facility] [address] [address] Abs Neutrophile Cnt 4.0 10*3/uL Normal 1.8-7.0 [facility] Comment on above: Performed By: #### H EMDF, BMP3, LFT3, LIPA4, TROPN #### [facility] [address] Basophils/100 WBC (Bld) 0.9 % Normal 0.0-2.0 [facility] Comment on above: Performed By: #### H EMDF, BMP3, LFT3, LIPA4, TROPN #### [address] Eosinophils (Bld) [#/Vol] 0.2 10*3/uL Normal 0.0-0.5 [facility] Comment on above: Performed By: #### H EMDF, BMP3, LFT3, LIPA4, TROPN #### [address] Eosinophils/100 WBC (Bld) 3.4 % Normal 1.0-6.0 [facility] Comment on above: Performed By: #### H EMDF, BMP3, LFT3, LIPA4, TROPN #### [address] Erythrocyte distribution width (RBC) [Ratio] 12.4 % Normal 11.5-14.5 [facility] Comment on above: Performed By: #### H EMDF, BMP3, LFT3, LIPA4, TROPN #### [address] Granulocytes/100 WBC (Bld) 71.5 % Normal 40.0-80.0 [facility] Comment on above: Performed By: #### H EMDF, BMP3, LFT3, LIPA4, TROPN #### [address] Hematocrit (Bld) [Volume fraction] 32.5 % Low 35.0-47.0 [facility] Comment on above: Performed By: #### H EMDF, BMP3, LFT3, LIPA4, TROPN #### [address] Hemoglobin (Bld) [Mass/Vol] 11.1 g/dL Low 11.7-16.0 [facility] Comment on above: Performed By: #### H EMDF, BMP3, LFT3, LIPA4, TROPN #### [address] [address] [address] [place], [place] Lymphocytes (Bld) [#/Vol] 1.0 10*3/uL Normal 1.0-4.3 [facility] Comment on above: Performed By: #### H EMDF, BMP3, LFT3, LIPA4, TROPN #### [address] [address] [place] Lymphocytes/100 WBC (Bld) 17.7 % Low 20.0-40.0 [facility] Comment on above: Performed By: #### H EMDF, BMP3, LFT3, LIPA4, TROPN #### [address] MCH (RBC) [Entitic mass] 33.0 pg Normal 26.0-34.0 [facility] Comment on above: Performed By: #### H EMDF, BMP3, LFT3, LIPA4, TROPN #### [address] MCHC (RBC) [Mass/Vol] 34.2 % Normal 32.0-36.0 [facility] Comment on above: Performed By: #### H EMDF, BMP3, LFT3, LIPA4, TROPN #### [address] MCV (RBC) [Entitic vol] 96.5 fL Normal 79.0-98.0 [facility] Comment on above: Performed By: #### H EMDF, BMP3, LFT3, LIPA4, TROPN #### [address] [place], [place] Monocytes (Bld) [#/Vol] 0.4 10*3/uL Normal 0.0-0.8 [facility] Comment on above: Performed By: #### H EMDF, BMP3, LFT3, LIPA4, TROPN #### [address] Monocytes/100 WBC (Bld) 6.5 % Normal 2.0-10.0 [facility] Comment on above: Performed By: #### H EMDF, BMP3, LFT3, LIPA4, TROPN #### [address] [address] [address] [place], [place] Platelet mean volume (Bld) [Entitic vol] 10.3 fL Normal 7.4-10.4 [facility] Comment on above: Performed By: #### H EMDF, BMP3, LFT3, LIPA4, TROPN #### [address] [address] [address] [place], [place] Platelets (Bld) [#/Vol] 163 10*3/uL Normal 140-440 [facility] Comment on above: Performed By: #### H EMDF, BMP3, LFT3, LIPA4, TROPN #### [address] [address] [address] [place], [place] RBC (Bld) [#/Vol] 3.37 10*6/uL Low 3.80-5.20 [facility] Comment on above: Performed By: #### H EMDF, BMP3, LFT3, LIPA4, TROPN #### [address] [address] [address] [place], [place] WBC (Bld) [#/Vol] 5.5 10*3/uL Normal 3.6-10.7 [facility] Comment on above: Performed By: #### H EMDF, BMP3, LFT3, LIPA4, TROPN #### [address] Lipaseon 02-12-2019 Lipase [Catalytic activity/Vol] 173 U/L Normal 23-300 [facility] Comment on above: Performed By: #### H EMDF, BMP3, LFT3, LIPA4, TROPN #### [address] [address] [place], [place] LipaseOrdered By: Sonny montenegro on 02-12-2019 Lipase [Catalytic activity/Vol] 173 U/L 23 - 300 U/L [facility] Work Phone: No Panel InformationOrdered By: Sonny Peres on 02-12-2019 Test Performed by [facility], [facility] [place], [place] [id number] [place] [address] Work Phone: Prothrombin Timeon 0 INR Coag (PPP) [Relative time] 1.1 Normal 0.9-1.1 [facility] Comment on above: Result Comment: Kervin [...] H EMDF, BMP3, LFT3, LIPA4, TROPN #### [address] [address] PT Coag (PPP) [Time] 11.1 s Normal 9.0-12.[address] [facility] Comment on above: Result Comment: . Performed By: #### H EMDF, BMP3, LFT3, LIPA4, TROPN #### [facility] [address] [address] Protime-INROrdered By: Nanette Peres on 02-12-2019 INR Coag (PPP) [Relative time] 1.1 {INR} [facility] Work Phone: Comment on above: Recommended [...] [Time] 11.1 s 9 - 12 s [facility] Work Phone: Comment on above: . Test Performed by [facility], [address] [place] [address] [facility] Work Phone: Add On Lab TestOrdered By: Juana Lowery on 02-11-2019 Add On Rejected [facility] Work Phone: Comment on above: No specimen availabl e for addon. Test Performed by [facility], [address] [place] [address] [facility] Work Phone: Add On Lab TestOrdered By: Dasha Montague on 02-11-2019 Add On Accepted [facility] Work Phone: Comment on above: Specimen available & acceptable for analysis. Test Performed by [facility], [address] [place] [address] [facility] Work Phone: Add on test from HISon 02-11 Add on test from HIS Accepted Normal [facility] Comment on above: Result Comment: Spec imen available & acceptable for analysis. Performed By: #### A DDON #### [address] [address] [address] [place], [place] Add on test from HIS Rejected Normal [facility] Comment on above: Result Comment: No s pecimen available for addon. Performed By: #### A DDON #### [address] Basic Metabolic Panelon Anion gap [Moles/Vol] 5 Normal [facility] Comment on above: Performed By: #### H EMDF, BMP3, LFT3, LIPA4, TROPN #### [address] [address] [place] Calcium [Mass/Vol] 8.9 mg/dL Normal 8.4-10.4 [facility] Comment on above: Performed By: #### H EMDF, BMP3, LFT3, LIPA4, TROPN #### [address] [address] [place], [place] CO2 [Moles/Vol] 27 mmol/L Normal 22-30 [facility] Comment on above: Performed By: #### H EMDF, BMP3, LFT3, LIPA4, TROPN #### [address] [address] [address] [place], [place] Creatinine [Mass/Vol] 0.72 mg/dL Normal 0.52-1.25 [facility] Comment on above: Performed By: #### H EMDF, BMP3, LFT3, LIPA4, TROPN #### [facility] [address] [place], [place] GFR/1.73 sq M predicted among blacks MDRD (S/P/Bld) [Vol rate/Area] mL/min/{1.73_m2} Normal >60 [facility] Comment on above: Performed By: #### H EMDF, BMP3, LFT3, LIPA4, TROPN #### [facility] [address] [place], [place] GFR/1.73 sq M predicted among non-blacks MDRD (S/P/Bld) [Vol rate/Area] mL/min/{1.73_m2} Normal >60 [facility] Comment on above: Result Comment: Sour ce- MDRD equation with creatinine calibration to IDMS(NKDEP) eGFR not recommended for drug dose adjustment Performed By: #### H EMDF, BMP3, LFT3, LIPA4, TROPN #### [facility] [address] [place], [place] Glucose [Mass/Vol] 120 mg/dL High 70-100 [facility] Comment on above: Performed By: #### H EMDF, BMP3, LFT3, LIPA4, TROPN #### [facility] [address] [place], [place] Urea nitrogen [Mass/Vol] 15 mg/dL Normal 7-20 [facility] Comment on above: Performed By: #### H EMDF, BMP3, LFT3, LIPA4, TROPN #### [facility] [address] [place], [place] Potassium [Moles/Vol] 3.7 mmol/L Normal 3.5-5.1 [facility] Comment on above: Performed By: #### H EMDF, BMP3, LFT3, LIPA4, TROPN #### [address] [address] [address] [place], [place] Sodium [Moles/Vol] 142 mmol/L Normal 135-145 [facility] Comment on above: Performed By: #### H EMDF, BMP3, LFT3, LIPA4, TROPN #### [facility] [address] [place] [address] Chloride [Moles/Vol] 111 mmol/L High 98-107 [facility] Comment on above: Performed By: #### H EMDF, BMP3, LFT3, LIPA4, TROPN #### [facility] [address] [place] [address] Basic Metabolic PanelOrdered By: Sahil Ribeiro on 02-11-2019 Anion gap [Moles/Vol] 5 mmol/L [facility] Work Phone: Calcium [Mass/Vol] 8.9 mg/dL 8.4 - 10. 4 mg/dL [facility] Work Phone: [phone] Chloride [Moles/Vol] 111 mmol/L High 98 - 10 7 mmol/L [facility] Work Phone: [phone] CO2 [Moles/Vol] 27 mmol/L 22 - 30 mmol/L [facility] Work Phone: [phone] Creatinine [Mass/Vol] 0.72 mg/dL 0.52 - 1.25 mg/dL [facility] Work Phone: [phone] EGFR IF NonAfrican Romanian >60.0 >60 mL/min [facility] Work Phone: [phone] Comment on above: Source- MDRD equatio n with creatinine calibration to IDMS(NKDEP) eGFR not recommended for drug dose adjustment GFR/1.73 sq M.predicted among blacks MDRD (S/P/Bld) [Vol rate/Area] mL/min/{1.73_m2} >60 mL/min [facility] Work Phone: Glucose [Mass/Vol] 120 mg/dL High 70 - 100 mg/dL [facility] Work Phone: [phone] Potassium [Moles/Vol] 3.7 mmol/L 3.5 - 5.1 mmol/L [facility] Work Phone: Sodium [Moles/Vol] 142 mmol/L 135 - 145 mmol/L [facility] Work Phone: [phone] Urea nitrogen [Mass/Vol] [...] [#/Vol] 0.0 10*3/uL 0 - 0.5 10*3/uL [facility] Work Phone: [phone] Eosinophils/100 WBC (Bld) 0.4 % Low 1 - 6 % [facility] Work Phone: Erythrocyte distribution width (RBC) [Ratio] 12.4 % 11.5 - 14.5 % [facility] Work Phone: 222 Granulocytes/100 WBC (Bld) 78.7 % 40 - 80 % [facility] Work Phone: 222 Hematocrit (Bld) [Volume fraction] 34.8 % Low 35 - 47 % [facility] Work Phone: 222 Hemoglobin (Bld) [Mass/Vol] 11.8 g/dL 11.7 - 16 g/dL [facility] Work Phone: ) 222 Interpretation and review of laboratory results Abnormal [facility] Work Phone: ) 222 Lymphocytes (Bld) [#/Vol] [...] vol] 96.7 fL 79 - 98 fL [facility] Work Phone: Monocytes (Bld) [#/Vol] 0.6 10*3/uL 0 - 0.8 10*3/uL [facility] Work Phone: Monocytes/100 WBC (Bld) 6.1 % 2 - 10 % [facility] Work Phone: Platelet mean volume (Bld) [Entitic vol] 10.0 fL 7.4 - 10.4 fL [facility] Work Phone: Platelets (Bld) [#/Vol] 193 10*3/uL 140 - 440 10*3/uL [facility] Work Phone: RBC (Bld) [#/Vol] 3.60 10*6/uL Low 3.8 - 5.2 10*6/uL [facility] Work Phone: WBC (Bld) [#/Vol] 9.9 10*3/uL 3.6 - 10.7 10*3/uL [facility] Work Phone: Test Performed by [facility], [address] [place] [id number] [employer] Work Phone: EKG 12 Lead - Chest PainOrde red By: Sahil Ribeiro on 02-11-2019 [employer] Test Date: 2019-02-11 Pat Name: Prema Villalpando Department: [facility] Room: [facility] Gender: F Lath Tier: HAKEEM : 1940 Requested By: SAHIL RIBEIRO Order Number: [id number] Reading MD: Zack Lopez Measurements Intervals [place] Rate: 69 P: CT: QRS: -12 QRSD: 85 T: -16 QT: 413 QTc: 443 Interpretive Statements Atrial fibrillation Low voltage, extremity and precordial leads Electronically Signed On 02-11-2019 22:54:26 EST by Zack Lopez [employer] Work Phone: Kash, [facility] Incoming Cardiology Results From [facility] - 02/11/2019 10:55 PM EST [employer] Test Date: 2019-02-11 Pat Name: Prema Villalpando Department: [facility] Room: [facility] Gender: F Lath Tier: HAKEEM : 1940 Requested By: SAHIL RIBEIRO Order Number: [id number] Reading MD: Zack Lopez Measurements Intervals [place] Rate: 69 P: CT: QRS: -12 QRSD: 85 T: -16 QT: 413 QTc: 443 Interpretive Statements Atrial fibrillation Low voltage, extremity and precordial leads Electronically Signed On 02-11-2019 22:54:26 EST by Zack Lopez [facility] Work Phone: HEPATIC FUNCTION PANELOrdere d By: Sahil Ribeiro on 02-11-2019 Albumin [Mass/Vol] 3.3 g/dL Low 3.5 - 5 g/dL [facility] Work Phone: ALP [Catalytic activity/Vol] 83 U/L 38 - 126 U/L [facility] Work Phone: ALT [Catalytic activity/Vol] 64 U/L 13 - 69 U/L [facility] Work Phone: AST [Catalytic activity/Vol] 76 U/L High 15 - 46 U/L [facility] Work Phone: Bilirubin [Mass/Vol] 0.5 mg/dL 0.2 - 1 .3 mg/dL [facility] Work Phone: Bilirubin.indirect [Mass/Vol] 0.0 mg/dL 0 - 0.3 mg/dL [facility] Work Phone: Protein [Mass/Vol] 6.2 g/dL Low 6.3 - 8.2 g/dL [facility] Work Phone: Hemogram w/ Autodiffon 02-11 Abs Baso Cnt 0.0 10*3/uL Normal 0.0-0.2 [facility] Comment on above: Performed By: #### H EMDF, BMP3, LFT3, LIPA4, TROPN #### [facility] [address] [place] [address] Abs Neutrophile Cnt 7.8 10*3/uL High 1.8-7.[address] [facility] [employer] Comment on above: Performed By: #### H EMDF, BMP3, LFT3, LIPA4, TROPN #### [address] [address] [place], [place] Basophils/100 WBC (Bld) 0.3 % Normal 0.0-2.0 [facility] Comment on above: Performed By: #### H EMDF, BMP3, LFT3, LIPA4, TROPN #### [address] Eosinophils (Bld) [#/Vol] 0.0 10*3/uL Normal 0.0-0.5 [facility] Comment on above: Performed By: #### H EMDF, BMP3, LFT3, LIPA4, TROPN #### [address] Eosinophils/100 WBC (Bld) 0.4 % Low 1.0-6.0 [facility] Comment on above: Performed By: #### H EMDF, BMP3, LFT3, LIPA4, TROPN #### [address] Erythrocyte distribution width (RBC) [Ratio] 12.4 % Normal 11.5-14.5 [facility] Comment on above: Performed By: #### H EMDF, BMP3, LFT3, LIPA4, TROPN #### [address] Granulocytes/100 WBC (Bld) 78.7 % Normal 40.0-80.0 [facility] Comment on above: Performed By: #### H EMDF, BMP3, LFT3, LIPA4, TROPN #### [address] Hematocrit (Bld) [Volume fraction] 34.8 % Low 35.0-47.0 [facility] Comment on above: Performed By: #### H EMDF, BMP3, LFT3, LIPA4, TROPN #### [address] Hemoglobin (Bld) [Mass/Vol] 11.8 g/dL Normal 11.7-16.0 [facility] Comment on above: Performed By: #### H EMDF, BMP3, LFT3, LIPA4, TROPN #### [address] [address] [address] [place], [place] Lymphocytes (Bld) [#/Vol] 1.4 10*3/uL Normal 1.0-4.3 [facility] Comment on above: Performed By: #### H EMDF, BMP3, LFT3, LIPA4, TROPN #### [address] [address] [place], [place] Lymphocytes/100 WBC (Bld) 14.5 % Low 20.0-40.0 [facility] Comment on above: Performed By: #### H EMDF, BMP3, LFT3, LIPA4, TROPN #### [address] MCH (RBC) [Entitic mass] 32.7 pg Normal 26.0-34.0 [facility] Comment on above: Performed By: #### H EMDF, BMP3, LFT3, LIPA4, TROPN #### [address] [place], [place] MCHC (RBC) [Mass/Vol] 33.9 % Normal 32.0-36.0 [facility] Comment on above: Performed By: #### H EMDF, BMP3, LFT3, LIPA4, TROPN #### [address] MCV (RBC) [Entitic vol] 96.7 fL Normal 79.0-98.0 [facility] Comment on above: Performed By: #### H EMDF, BMP3, LFT3, LIPA4, TROPN #### [address] Monocytes (Bld) [#/Vol] 0.6 10*3/uL Normal 0.0-0.8 [facility] Comment on above: Performed By: #### H EMDF, BMP3, LFT3, LIPA4, TROPN #### [address] [id number] Monocytes/100 WBC (Bld) 6.1 % Normal 2.0-10.0 [facility] Comment on above: Performed By: #### H EMDF, BMP3, LFT3, LIPA4, TROPN #### [address] Platelet mean volume (Bld) [Entitic vol] 10.0 fL Normal 7.4-10.4 [facility] Comment on above: Performed By: #### H EMDF, BMP3, LFT3, LIPA4, TROPN #### [address] [address] [place], [place] Platelets (Bld) [#/Vol] 193 10*3/uL Normal 140-440 [facility] Comment on above: Performed By: #### H EMDF, BMP3, LFT3, LIPA4, TROPN #### [address] RBC (Bld) [#/Vol] 3.60 10*6/uL Low 3.80-5.20 [facility] Comment on above: Performed By: #### H EMDF, BMP3, LFT3, LIPA4, TROPN #### [address] WBC (Bld) [#/Vol] 9.9 10*3/uL Normal 3.6-10.7 [facility] Comment on above: Performed By: #### H EMDF, BMP3, LFT3, LIPA4, TROPN #### [address] [address] [place], [place] Hepatic Functionon 0 ALP [Catalytic activity/Vol] 83 U/L Normal 38-126 [facility] Comment on above: Performed By: #### H EMDF, BMP3, LFT3, LIPA4, TROPN #### [address] ALT [Catalytic activity/Vol] 64 U/L Normal 13-69 [facility] Comment on above: Performed By: #### H EMDF, BMP3, LFT3, LIPA4, TROPN #### [address] [place], [place] AST [Catalytic activity/Vol] 76 U/L High 15-46 [facility] Comment on above: Performed By: #### H EMDF, BMP3, LFT3, LIPA4, TROPN #### [facility] [address] [place], [place] Bilirubin [Mass/Vol] 0.5 mg/dL Normal 0.2-1.3 [facility] Comment on above: Performed By: #### H EMDF, BMP3, LFT3, LIPA4, TROPN #### [facility] [address] [place], [place] Bilirubin.direct [Mass/Vol] 0.0 mg/dL Normal 0.0-0.3 [facility] Comment on above: Performed By: #### H EMDF, BMP3, LFT3, LIPA4, TROPN #### [address] [address] [address] [place], [place] Protein [Mass/Vol] 6.2 g/dL Low 6.3-8.2 [facility] Comment on above: Performed By: #### H EMDF, BMP3, LFT3, LIPA4, TROPN #### [address] [address] [address] [place], [place] Albumin [Mass/Vol] 3.3 g/dL Low 3.5-5.0 [facility] Comment on above: Performed By: #### H EMDF, BMP3, LFT3, LIPA4, TROPN #### [address] [address] [address] [place], [place] Lipaseon 02-11-2019 Lipase [Catalytic activity/Vol] 164 U/L Normal 23-300 [facility] Comment on above: Performed By: #### H EMDF, BMP3, LFT3, LIPA4, TROPN #### [address] [address] [address] [place], [place] LipaseOrdered By: Sahil wright on 02-11-2019 Lipase [Catalytic activity/Vol] 164 U/L 23 - 300 U/L [facility] Work Phone: MRI ABDOMEN WO CONTRASTOrder ed By: Gem Lowery on 02-11-2019 Patient Name: PREMA VILLALPANDO ---MRI--- Exam Date/Time 02/11/2019 13:41:50 EST Exam MRI Abdomen w/o Contrast Ordering Physician DO LOWERY ELISABETH Accession Number [id number] CPT4 Codes 10632 () Reason For Exam evaluate for choledocholithiasis [...] Phone: Kash, [facility] Incoming Radiology Results From [facility] - 02/11/2019 2:56 PM EST Patient Name: PREMA VILLALPANDO ---MRI--- Exam Date/Time 02/11/2019 13:41:50 EST Exam MRI Abdomen w/o Contrast Ordering Physician DO LOWERY ELISABETH Accession Number [id number] CPT4 Codes 40235 () Reason For Exam evaluate for choledocholithiasis [...] 02-11-2019 MRI Abdomen w/o Contrast Patient Name: RPEMA VILLALPANDO MRI Exam Date/Time 02/11/2019 13:41:50 EST Exam MRI Abdomen w/o Contrast Ordering Physician DO LOWERY ELISABETH Accession Number [id number] CPT4 Codes 20368 () Reason For Exam evaluate for choledocholithiasis [...] Transcribed Date and Time: 02/11/2019 2:42 Normal [facility] No Panel InformationOrdered By: Sahil Ribeiro on 02-11-2019 Interpretation and review of laboratory results Abnormal [facility] Work Phone: Test Performed by [facility], [address] [place] [address] [facility] Work Phone: PROTIME/INR & PTTOrdered By: Gem Lowery on 02-11-2019 aPTT Coag (Bld) [Time] 27 s 20 - 30.[address] [facility] Work Phone: Comment on above: NOTE: The therapeuti c time for Heparin anticoagulation, based on Xa activity inhibition, is an APTT of 46-80 seconds. INR Coag (PPP) [Relative time] 1.0 {INR} [facility] Work Phone: Comment on above: Recommended [...] [Time] 11 s 9 - 12 s [facility] Work Phone: Comment on above: . Test Performed by [facility], [address] [place] [address] Work Phone: Protime AND APTTon 0 INR Coag (PPP) [Relative time] 1.0 Normal 0.9-1.1 [facility] Comment on above: Result Comment: Kervin mmended [...] Infarction Performed By: #### P T/AP #### [address] PT Coag (PPP) [Time] 11.0 s Normal 9.0-12.[address] [facility] Comment on above: Result Comment: . Performed By: #### P T/AP #### [facility] [address] aPTT Coag (Bld) [Time] 27.0 s Normal 20.0-30.5 [facility] Comment on above: Result Comment: NOTE : The therapeutic time for Heparin anticoagulation, based on Xa activity inhibition, is an APTT of 46-80 seconds. Performed By: #### P T/AP #### [facility] [address] TroponinOrdered By: Jf on 02-11-2019 Troponin I.cardiac [Mass/Vol] ng/mL 0 - 0.034 ng/mL [facility] Work Phone: Comment on above: . Test Performed by [facility], [address] [place] [address] [facility] Work Phone: Troponin Ion 02-11-2019 Troponin I.cardiac [Mass/Vol] ng/mL Normal 0.000-0.034 [facility] Comment on above: Result Comment: . Performed By: #### H EMDF, BMP3, LFT3, LIPA4, TROPN #### [facility] [address] [place] [address] [place] ABDOMEN LIMITED Specify o rgan? GALLBLADDER, PANCREAS, LIVEROrdered By: Yusuf Andino on 02-11-2019 Patient Name: PREMA VILLALPANDO ---Ultrasound--- Exam Date/Time 02/11/2019 08:31:45 EST Exam US Abdomen Limited Ordering Physician Rita ANDINO, YUSUF Lou Accession Number [id number] CPT4 Codes 60382 () Reason For Exam RUQ pain Report [...] Phone: [facility], [facility] Incoming Radiology Results From [facility] - 02/11/2019 9:11 AM EST Patient Name: PREMA VILLALPANDO ---Ultrasound--- Exam Date/Time 02/11/2019 08:31:45 EST Exam US Abdomen Limited Ordering Physician Rita ANDINO SHELLY D Accession Number [id number] CPT4 Codes 89351 () Reason For Exam RUQ pain Report [...] Physician Rita ANDINO SHELLY D Accession Number [id number] CPT4 Codes 73576 () Reason For Exam RUQ pain Report [...] Transcribed Date and Time: 02/11/2019 9:06 Normal [facility] Comprehensive Metabolic Pane keely 09-21-2018 Albumin [Mass/Vol] 3.5 g/dL 3.5 - 5 g/dL [place], [place] ALP [Catalytic activity/Vol] 117 U/L 38 - 126 U/L [place] ALT [Catalytic activity/Vol] 47 U/L 13 - 69 U/L [place] Anion gap [Moles/Vol] 5 mmol/L [place] AST [Catalytic activity/Vol] 137 U/L High 15 - 46 U/L [place] Bilirubin Ql (U) 0.7 mg/dL 0.2 - 1.3 mg/dL [place] Calcium [Mass/Vol] 9.4 mg/dL 8.4 - 10. 4 mg/dL [place] Chloride [Moles/Vol] 102 mmol/L 98 - 10 7 mmol/L [place] CO2 [Moles/Vol] 28 mmol/L 22 - 30 mmol/L [place] Creatinine [Mass/Vol] 0.61 mg/dL 0.52 - 1.25 mg/dL [place] EGFR IF NonAfrican Romanian >60.0 >60 mL/min [place] Comment on above: Source- MDRD equatio n with creatinine calibration to IDMS(NKDEP) eGFR not recommended for drug dose adjustment GFR/1.73 sq M predicted among blacks MDRD (S/P/Bld) [Vol rate/Area] mL/min/{1.73_m2} >60 mL/min [place] Glucose [Mass/Vol] 135 mg/dL High 70 - 100 mg/dL [place] Interpretation and review of laboratory results Abnormal [place] Potassium [Moles/Vol] 3.4 mmol/L Low 3.5 - 5.1 mmol/L [place] Protein [Mass/Vol] 6.6 g/dL 6.3 - 8.2 g/dL [place] Sodium [Moles/Vol] 134 mmol/L Low 135 - 145 mmol/L [place] Urea nitrogen [Mass/Vol] 5 mg/dL Low 7 - 20 mg/dL [place] Test Performed by [facility], [address], [place], [place] [address] [place] CBC Auto Differentialon 09-08 Absolute Baso # 0.1 10*3/uL 0 - 0.2 10*3/uL [place] Absolute Neut # 5.1 10*3/uL 1.8 - 7 10*3/uL [place] Basophils/100 WBC (Bld) 0.8 % 0 - 2 % [place] Eosinophils (Bld) [#/Vol] 0.2 10*3/uL 0 - 0.5 10*3/uL [place] Eosinophils/100 WBC (Bld) 3.4 % 1 - 6 % [place] Erythrocyte distribution width (RBC) [Ratio] 17.3 % High 11.5 - 14.5 % [place] Granulocytes/100 WBC (Bld) 68.2 % 40 - 80 % [place] Hematocrit (Bld) [Volume fraction] 35.1 % 35 - 47 % [place] Hemoglobin (Bld) [Mass/Vol] 11.4 g/dL Low 11.7 - 16 g/dL [place] Interpretation and review of laboratory results Abnormal [place] Lymphocytes (Bld) [#/Vol] 1.5 10*3/uL 1 - 4.3 10*3/uL [place] Lymphocytes/100 WBC (Bld) 20.2 % 20 - 40 % [place] MCH (RBC) [Entitic mass] 29.0 pg 26 - 34 pg [place] MCHC (RBC) [Mass/Vol] 32.6 % 32 - 36 % [place] MCV (RBC) [Entitic vol] 88.9 fL 79 - 98 fL [place] Monocytes (Bld) [#/Vol] 0.5 10*3/uL 0 - 0.8 10*3/uL [place] Monocytes/100 WBC (Bld) 7.4 % 2 - 10 % [place] Platelet mean volume (Bld) [Entitic vol] 9.6 fL 7.4 - 10.4 fL [place] Platelets (Bld) [#/Vol] 232 10*3/uL 140 - 440 10*3/uL [place] RBC (Bld) [#/Vol] 3.95 10*6/uL 3.8 - 5.2 10*6/uL [place] WBC (Bld) [#/Vol] 7.4 10*3/uL 3.6 - 10.7 10*3/uL [place] Test Performed by [facility], [address], [place], [place] [address] [place] Comprehensive Metabolic Pane keely 09-20-2018 Albumin [Mass/Vol] 3.6 g/dL 3.5 - 5 g/dL [place] ALP [Catalytic activity/Vol] 141 U/L High 38 - 126 U/L [place] ALT [Catalytic activity/Vol] 56 U/L 13 - 69 U/L [place] Anion gap [Moles/Vol] 10 mmol/L [place] AST [Catalytic activity/Vol] 68 U/L High 15 - 46 U/L [place] Bilirubin Ql (U) 0.6 mg/dL 0.2 - 1.3 mg/dL [place] Calcium [Mass/Vol] 9.3 mg/dL 8.4 - 10. 4 mg/dL [place] Chloride [Moles/Vol] 104 mmol/L 98 - 10 7 mmol/L [place] CO2 [Moles/Vol] 25 mmol/L 22 - 30 mmol/L [place] Creatinine [Mass/Vol] 0.63 mg/dL 0.52 - 1.25 mg/dL [place] EGFR IF NonAfrican Romanian >60.0 >60 mL/min [place] Comment on above: Source- MDRD equatio n with creatinine calibration to IDMS(NKDEP) eGFR not recommended for drug dose adjustment GFR/1.73 sq M predicted among blacks MDRD (S/P/Bld) [Vol rate/Area] mL/min/{1.73_m2} >60 mL/min [place] Glucose [Mass/Vol] 136 mg/dL High 70 - 100 mg/dL [place] Potassium [Moles/Vol] 3.7 mmol/L 3.5 - 5.1 mmol/L [place] Protein [Mass/Vol] 6.6 g/dL 6.3 - 8.2 g/dL [place] Sodium [Moles/Vol] 140 mmol/L 135 - 145 mmol/L [place] Urea nitrogen [Mass/Vol] 8 mg/dL 7 - 20 mg/dL [facility] Lactate Dehydrogenaseon 09-08 LD 182 U/L High 50 - 170 U/L [facility] Otheron 09-20-2018 Blood Culture, Routine No growth at 5 days. [facility] Test Performed by [facility], [address] [place] [address] Specimen Source Comment:Blood [place] Interpretation and review of laboratory results Abnormal [place] Test Performed by [facility], [address], [place], [place] [address] [place] CBC Auto Differentialon 09-08 Absolute Baso # 0.1 10*3/uL 0 - 0.2 10*3/uL [place] Absolute Neut # 4.2 10*3/uL 1.8 - 7 10*3/uL [place] Basophils/100 WBC (Bld) 1.0 % 0 - 2 % [place] Eosinophils (Bld) [#/Vol] 0.2 10*3/uL 0 - 0.5 10*3/uL [place] Eosinophils/100 WBC (Bld) 4.0 % 1 - 6 % [place] Erythrocyte distribution width (RBC) [Ratio] 17.7 % High 11.5 - 14.5 % [place] Granulocytes/100 WBC (Bld) 68.4 % 40 - 80 % [place] Hematocrit (Bld) [Volume fraction] 32.0 % Low 35 - 47 % [place] Hemoglobin (Bld) [Mass/Vol] 10.6 g/dL Low 11.7 - 16 g/dL [place] Interpretation and review of laboratory results Abnormal [facility] Lymphocytes (Bld) [#/Vol] 1.2 10*3/uL 1 - 4.3 10*3/uL [place] Lymphocytes/100 WBC (Bld) 19.7 % Low 20 - 40 % [place] MCH (RBC) [Entitic mass] 29.0 pg 26 - 34 pg [place] MCHC (RBC) [Mass/Vol] 33.2 % 32 - 36 % [place] MCV (RBC) [Entitic vol] 87.4 fL 79 - 98 fL [place] Monocytes (Bld) [#/Vol] 0.4 10*3/uL 0 - 0.8 10*3/uL [place] Monocytes/100 WBC (Bld) 6.9 % 2 - 10 % [place] Platelet mean volume (Bld) [Entitic vol] 9.4 fL 7.4 - 10.4 fL [place] Platelets (Bld) [#/Vol] 225 10*3/uL 140 - 440 10*3/uL [place] RBC (Bld) [#/Vol] 3.66 10*6/uL Low 3.8 - 5.2 10*6/uL [place] WBC (Bld) [#/Vol] 6.2 10*3/uL 3.6 - 10.7 10*3/uL [place] Test Performed by [facility], [address], [place], [place] [address] [place] Comprehensive Metabolic Pane keely 09-19-2018 Albumin [Mass/Vol] 3.3 g/dL Low 3.5 - 5 g/dL [place] ALP [Catalytic activity/Vol] 117 U/L 38 - 126 U/L [place] ALT [Catalytic activity/Vol] 78 U/L High 13 - 69 U/L [place] Anion gap [Moles/Vol] 5 mmol/L [place] AST [Catalytic activity/Vol] 52 U/L High 15 - 46 U/L [place] Bilirubin Ql (U) 0.8 mg/dL 0.2 - 1.3 mg/dL [place] Calcium [Mass/Vol] 9.0 mg/dL 8.4 - 10. 4 mg/dL [place] Chloride [Moles/Vol] 102 mmol/L 98 - 10 7 mmol/L [place] CO2 [Moles/Vol] 27 mmol/L 22 - 30 mmol/L [place] Creatinine [Mass/Vol] 0.66 mg/dL 0.52 - 1.25 mg/dL [place] EGFR IF NonAfrican [place] >60.0 >60 mL/min [place] Comment on above: Source- MDRD equatio n with creatinine calibration to IDMS(NKDEP) eGFR not recommended for drug dose adjustment GFR/1.73 sq M predicted among blacks MDRD (S/P/Bld) [Vol rate/Area] mL/min/{1.73_m2} >60 mL/min [place] Glucose [Mass/Vol] 125 mg/dL High 70 - 100 mg/dL [place] Interpretation and review of laboratory results Abnormal [place] Potassium [Moles/Vol] 3.8 mmol/L 3.5 - 5.1 mmol/L [place] Protein [Mass/Vol] 6.3 g/dL 6.3 - 8.2 g/dL [place] Sodium [Moles/Vol] 133 mmol/L Low 135 - 145 mmol/L [place] Urea nitrogen [Mass/Vol] 10 mg/dL 7 - 20 mg/dL [place] Lipaseon 09-19-2018 Lipase [Catalytic activity/Vol] 247 U/L 23 - 300 U/L [place] Otheron 09-19-2018 Test Performed by [facility], [address] [place], [place] [address] [place] US ABDOMEN LIMITEDon 019 Patient Name: PREMA VILLALPANDO ---Ultrasound--- Exam Date/Time 09/19/2018 14:28:18 EDT Exam US Abdomen Limited Ordering Physician MD CHONG, SEEMA Wheeler Accession Number [id number] CPT4 Codes 99806 () Reason For Exam re-eval pancreas, rising [...] RUSSELL Transcribed Date and Time: 09/19/2018 3:29 [place] Kash, [facility] Incoming Radiology Results From [facility] - 09/19/2018 3:29 PM EDT Patient Name: PREMA VILLALPANDO ---Ultrasound--- Exam Date/Time 09/19/2018 14:28:18 EDT Exam US Abdomen Limited Ordering Physician MD SCHWARZ RICHARD H Accession Number [id number] CPT4 Codes 39739 () Reason For Exam re-eval pancreas, rising [...] RUSSELL Transcribed Date and Time: 09/19/2018 3:29 [place] CBC Auto Differentialon 09-08 Absolute Baso # 0.1 10*3/uL 0 - 0.2 10*3/uL [place] Absolute Neut # 6.1 10*3/uL 1.8 - 7 10*3/uL [place] Basophils/100 WBC (Bld) 0.9 % 0 - 2 % [place] Eosinophils (Bld) [#/Vol] 0.4 10*3/uL 0 - 0.5 10*3/uL [place] Eosinophils/100 WBC (Bld) 4.0 % 1 - 6 % [place] Erythrocyte distribution width (RBC) [Ratio] 18.1 % High 11.5 - 14.5 % [place] Granulocytes/100 WBC (Bld) 68.6 % 40 - 80 % [place] Hematocrit (Bld) [Volume fraction] 36.2 % 35 - 47 % [place] Hemoglobin (Bld) [Mass/Vol] 11.8 g/dL 11.7 - 16 g/dL [place] Lymphocytes (Bld) [#/Vol] 1.8 10*3/uL 1 - 4.3 10*3/uL [place] Lymphocytes/100 WBC (Bld) 19.9 % Low 20 - 40 % [place] MCH (RBC) [Entitic mass] 28.8 pg 26 - 34 pg [place] MCHC (RBC) [Mass/Vol] 32.7 % 32 - 36 % [place] MCV (RBC) [Entitic vol] 88.1 fL 79 - 98 fL [place] Monocytes (Bld) [#/Vol] 0.6 10*3/uL 0 - 0.8 10*3/uL [place] Monocytes/100 WBC (Bld) 6.6 % 2 - 10 % [place] Platelet mean volume (Bld) [Entitic vol] 9.3 fL 7.4 - 10.4 fL [place] Platelets (Bld) [#/Vol] 281 10*3/uL 140 - 440 10*3/uL [place] RBC (Bld) [#/Vol] 4.11 10*6/uL 3.8 - 5.2 10*6/uL [place] WBC (Bld) [#/Vol] 8.9 10*3/uL 3.6 - 10.7 10*3/uL [place] Comprehensive Metabolic Pane keely 09-18-2018 Albumin [Mass/Vol] 3.7 g/dL 3.5 - 5 g/dL [place] ALP [Catalytic activity/Vol] 165 U/L High 38 - 126 U/L [place] ALT [Catalytic activity/Vol] 93 U/L High 13 - 69 U/L [place] Anion gap [Moles/Vol] 5 mmol/L [place] AST [Catalytic activity/Vol] 69 U/L High 15 - 46 U/L [place] Bilirubin Ql (U) 0.8 mg/dL 0.2 - 1.3 mg/dL [place] Calcium [Mass/Vol] 9.4 mg/dL 8.4 - 10. 4 mg/dL [place] Chloride [Moles/Vol] 102 mmol/L 98 - 10 7 mmol/L [place] CO2 [Moles/Vol] 28 mmol/L 22 - 30 mmol/L [place] Creatinine [Mass/Vol] 0.7 mg/dL 0.52 - 1.25 mg/dL [place] EGFR IF NonAfrican [place] >60.0 >60 mL/min [place] Comment on above: Source- MDRD equatio n with creatinine calibration to IDMS(NKDEP) eGFR not recommended for drug dose adjustment GFR/1.73 sq M predicted among blacks MDRD (S/P/Bld) [Vol rate/Area] mL/min/{1.73_m2} >60 mL/min [place] Glucose [Mass/Vol] 133 mg/dL High 70 - 100 mg/dL [place] Potassium [Moles/Vol] 3.6 mmol/L 3.5 - 5.1 mmol/L [place] Protein [Mass/Vol] 7.0 g/dL 6.3 - 8.2 g/dL [place] Sodium [Moles/Vol] 136 mmol/L 135 - 145 mmol/L [place] Urea nitrogen [Mass/Vol] 10 mg/dL 7 - 20 mg/dL [place] Lipaseon 09-18-2018 Lipase [Catalytic activity/Vol] 513 U/L High 23 - 300 U/L [place] Otheron 09-18-2018 Interpretation and review of laboratory results Abnormal [place] Test Performed by [facility], [address], [place], [place] [address] [place] Comprehensive Metabolic Pane keely 09-17-2018 Albumin [Mass/Vol] 3.4 g/dL Low 3.5 - 5 g/dL [place], [place] ALP [Catalytic activity/Vol] 146 U/L High 38 - 126 U/L [place] ALT [Catalytic activity/Vol] 109 U/L High 13 - 69 U/L [place] Anion gap [Moles/Vol] 7 mmol/L [place] AST [Catalytic activity/Vol] 76 U/L High 15 - 46 U/L [place] Bilirubin Ql (U) 0.6 mg/dL 0.2 - 1.3 mg/dL [place] Calcium [Mass/Vol] 9.0 mg/dL 8.4 - 10. 4 mg/dL [place] Chloride [Moles/Vol] 104 mmol/L 98 - 10 7 mmol/L [place] CO2 [Moles/Vol] 27 mmol/L 22 - 30 mmol/L [place] Creatinine [Mass/Vol] 0.66 mg/dL 0.52 - 1.25 mg/dL [place] EGFR IF NonAfrican Romanian >60.0 >60 mL/min [place] Comment on above: Source- MDRD equatio n with creatinine calibration to IDMS(NKDEP) eGFR not recommended for drug dose adjustment GFR/1.73 sq M predicted among blacks MDRD (S/P/Bld) [Vol rate/Area] mL/min/{1.73_m2} >60 mL/min [place] Glucose [Mass/Vol] 141 mg/dL High 70 - 100 mg/dL [place] Potassium [Moles/Vol] 3.3 mmol/L Low 3.5 - 5.1 mmol/L [place] Protein [Mass/Vol] 6.4 g/dL 6.3 - 8.2 g/dL [place] Sodium [Moles/Vol] 139 mmol/L 135 - 145 mmol/L [place] Urea nitrogen [Mass/Vol] 8 mg/dL 7 - 20 mg/dL [place] Lipaseon 09-17-2018 Lipase [Catalytic activity/Vol] 351 U/L High 23 - 300 U/L [place] NM HEPATOBILIARY W/O CCKon 0 09-17-2018 Patient Name: PREMA VILLALPANDO ---Nuc Med--- Exam Date/Time 09/17/2018 09:00:00 EDT Exam NM Hepatobiliary System Imaging Ordering Physician KIKO LAU MD Accession Number [id number] CPT4 Codes 33103 () Reason For Exam abd pain Report [...] J Transcribed Date and Time: 09/17/2018 10:54 [place] Kash, [facility] Incoming Radiology Results From [facility] - 09/17/2018 10:55 AM EDT Patient Name: PREMA VILLALPANDO ---[facility] Med--- Exam Date/Time 09/17/2018 09:00:00 EDT Exam NM Hepatobiliary System Imaging Ordering Physician KIKO LAU MD Accession Number [id number] CPT4 Codes 23563 () Reason For Exam abd pain Report [...] J Transcribed Date and Time: 09/17/2018 10:54 [place] Otheron 09-17-2018 Interpretation and review of laboratory results Abnormal [place] Test Performed by [facility], [address] [place], [place] [address] [place] URINE CULTUREon 09-17-2018 Bacteria identified Cx Nom (U) Group B streptococcus Abnormal [place] Bacteria identified Cx Nom (U) 10,000-50,000 CFU/ml Susceptibility testing not routinely performed. Group B streptococcus is universally susceptible to beta-lactam antibiotics and vancomycin. If patient is beta-lactam allergic, please call [facility] Microbiology lab ([phone]) within 2 days to request susceptibility testing. If isolated from urine, Group B strep may indicate colonization or infection. [place] Bacteria identified Cx Nom (U) Normal urogenital nayeli present. Abnormal [place] Interpretation and review of laboratory results Abnormal [place] Test Performed by [facility], [address] [place] [address] Specimen Source Comment:Urine, clean catch [place] CBCon 09-16-2018 Erythrocyte distribution width (RBC) [Ratio] 17.5 % High 11.5 - 14.5 % [place] Hematocrit (Bld) [Volume fraction] 34.0 % Low 35 - 47 % [place] Hemoglobin (Bld) [Mass/Vol] 11.3 g/dL Low 11.7 - 16 g/dL [place] Interpretation and review of laboratory results Abnormal [place] MCH (RBC) [Entitic mass] 28.9 pg 26 - 34 pg [place] MCHC (RBC) [Mass/Vol] 33.2 % 32 - 36 % [place] MCV (RBC) [Entitic vol] 87.1 fL 79 - 98 fL [place] Platelet mean volume (Bld) [Entitic vol] 9.4 fL 7.4 - 10.4 fL [place] Platelets (Bld) [#/Vol] 247 10*3/uL 140 - 440 10*3/uL [place] RBC (Bld) [#/Vol] 3.91 10*6/uL 3.8 - 5.2 10*6/uL [place] WBC (Bld) [#/Vol] 8.1 10*3/uL 3.6 - 10.7 10*3/uL [place] Test Performed by [facility], [address], [place], [place] [address] [place] Comprehensive Metabolic Pane l w/ Reflex to MGon 09-16-2018 Albumin [Mass/Vol] 3.7 g/dL 3.5 - 5 g/dL [place] ALP [Catalytic activity/Vol] 145 U/L High 38 - 126 U/L [place] ALT [Catalytic activity/Vol] 145 U/L High 13 - 69 U/L [place] Anion gap [Moles/Vol] 7 mmol/L [place] AST [Catalytic activity/Vol] 133 U/L High 15 - 46 U/L [place] Bilirubin Ql (U) 0.9 mg/dL 0.2 - 1.3 mg/dL [place] Calcium [Mass/Vol] 9.1 mg/dL 8.4 - 10. 4 mg/dL [place] Chloride [Moles/Vol] 99 mmol/L 98 - 10 7 mmol/L [place] CO2 [Moles/Vol] 29 mmol/L 22 - 30 mmol/L [place] Creatinine [Mass/Vol] 0.75 mg/dL 0.52 - 1.25 mg/dL [place] EGFR IF NonAfrican Romanian >60.0 >60 mL/min [place] Comment on above: Source- MDRD equatio n with creatinine calibration to IDMS(NKDEP) eGFR not recommended for drug dose adjustment GFR/1.73 sq M predicted among blacks MDRD (S/P/Bld) [Vol rate/Area] mL/min/{1.73_m2} >60 mL/min [place] Glucose [Mass/Vol] 131 mg/dL High 70 - 100 mg/dL [place] Interpretation and review of laboratory results Abnormal [place] Potassium [Moles/Vol] 3.2 mmol/L Low 3.5 - 5.1 mmol/L [place] Protein [Mass/Vol] 6.8 g/dL 6.3 - 8.2 g/dL [place] Sodium [Moles/Vol] 135 mmol/L 135 - 145 mmol/L [place] Urea nitrogen [Mass/Vol] 11 mg/dL 7 - 20 mg/dL [place] Test Performed by [facility], [address], [place], [place] [address] [place] MRI ABDOMEN WO CONTRASTon Patient Name: PREMA VILLALPANDO ---MRI--- Exam Date/Time 09/16/2018 16:17:45 EDT Exam MRI Abdomen w/o Contrast Ordering Physician KIKO LAU MD Accession Number [id number] CPT4 Codes 51197 () Reason For Exam gallstones,abd pain Report [...] M Transcribed Date and Time: 09/16/2018 6:06 [facility], [place] [facility], [facility] Incoming Radiology Results From [facility] - 09/16/2018 6:06 PM EDT Patient Name: PREMA VILLALPANDO ---MRI--- Exam Date/Time 09/16/2018 16:17:45 EDT Exam MRI Abdomen w/o Contrast Ordering Physician KIKO LAU MD Accession Number [id number] CPT4 Codes 38148 () Reason For Exam gallstones,abd pain Report [...] M Transcribed Date and Time: 09/16/2018 6:06 [place] Magnesiumon 09-16-2018 Magnesium [Mass/Vol] 1.7 mg/dL 1.6 - 2 .3 mg/dL [place] Test Performed by [facility], [address] Troponinon 09-16-2018 Troponin I.cardiac [Mass/Vol] ng/mL 0 - 0.034 ng/mL [place] Comment on above: < 0.034 = negative 0.034 0.120 = indeterminate > 0.120 = positive Test Performed by [facility], [address] CBC Auto Differentialon Absolute Baso # 0.1 10*3/uL 0 - 0.2 10*3/uL [place] Absolute Neut # 5.9 10*3/uL 1.8 - 7 10*3/uL [place] Basophils/100 WBC (Bld) 1.1 % 0 - 2 % [place] Eosinophils (Bld) [#/Vol] 0.3 10*3/uL 0 - 0.5 10*3/uL [place] Eosinophils/100 WBC (Bld) 3.2 % 1 - 6 % [place] Erythrocyte distribution width (RBC) [Ratio] 17.4 % High 11.5 - 14.5 % [place] Granulocytes/100 WBC (Bld) 67.0 % 40 - 80 % [place] Hematocrit (Bld) [Volume fraction] 36.5 % 35 - 47 % [place] Hemoglobin (Bld) [Mass/Vol] 12.0 g/dL 11.7 - 16 g/dL [place] Interpretation and review of laboratory results Abnormal [place] Lymphocytes (Bld) [#/Vol] 2.0 10*3/uL 1 - 4.3 10*3/uL [place] Lymphocytes/100 WBC (Bld) 22.6 % 20 - 40 % [place] MCH (RBC) [Entitic mass] 28.3 pg 26 - 34 pg [place] MCHC (RBC) [Mass/Vol] 32.9 % 32 - 36 % [place] MCV (RBC) [Entitic vol] 85.8 fL 79 - 98 fL [place] Monocytes (Bld) [#/Vol] 0.5 10*3/uL 0 - 0.8 10*3/uL [place] Monocytes/100 WBC (Bld) 6.1 % 2 - 10 % [place] Platelet mean volume (Bld) [Entitic vol] 9.7 fL 7.4 - 10.4 fL [place] Platelets (Bld) [#/Vol] 275 10*3/uL 140 - 440 10*3/uL [place] RBC (Bld) [#/Vol] 4.25 10*6/uL 3.8 - 5.2 10*6/uL [place] WBC (Bld) [#/Vol] 8.8 10*3/uL 3.6 - 10.7 10*3/uL [place] Test Performed by [facility], [address], [place], [place] [address] [place] Comprehensive Metabolic Pane keely 09-15-2018 Albumin [Mass/Vol] 4.1 g/dL 3.5 - 5 g/dL [place] ALP [Catalytic activity/Vol] 170 U/L High 38 - 126 U/L [place] ALT [Catalytic activity/Vol] 191 U/L High 13 - 69 U/L [place] Anion gap [Moles/Vol] 6 mmol/L [place] AST [Catalytic activity/Vol] 216 U/L High 15 - 46 U/L [place] Bilirubin Ql (U) 0.9 mg/dL 0.2 - 1.3 mg/dL [place] Calcium [Mass/Vol] 9.2 mg/dL 8.4 - 10. 4 mg/dL [place] Chloride [Moles/Vol] 100 mmol/L 98 - 10 7 mmol/L [place] CO2 [Moles/Vol] 33 mmol/L High 22 - 30 mmol/L [place] Creatinine [Mass/Vol] 0.83 mg/dL 0.52 - 1.25 mg/dL [place] EGFR IF NonAfrican Romanian >60.0 >60 mL/min [place] Comment on above: Source- MDRD equatio n with creatinine calibration to IDMS(NKDEP) eGFR not recommended for drug dose adjustment GFR/1.73 sq M predicted among blacks MDRD (S/P/Bld) [Vol rate/Area] mL/min/{1.73_m2} >60 mL/min [place] Glucose [Mass/Vol] 111 mg/dL High 70 - 100 mg/dL [place] Interpretation and review of laboratory results Abnormal [place] Potassium [Moles/Vol] 3.4 mmol/L Low 3.5 - 5.1 mmol/L [place] Protein [Mass/Vol] 7.5 g/dL 6.3 - 8.2 g/dL [place] Sodium [Moles/Vol] 139 mmol/L 135 - 145 mmol/L [place] Urea nitrogen [Mass/Vol] 13 mg/dL 7 - 20 mg/dL [place] Test Performed by [facility], [address], [place], [place] [address] [place] Hepatitis Panel, Acuteon HAV IgM IA Qn (S) NOT DETECTED Not-Detect ed [place] Hep B Core Ab, IgM NOT DETECTED Not-Detec jae [place] Hepatitis B Surface Ag NOT DETECTED Not-D etected [place] Hepatitis C Ab NOT DETECTED Not-Detected [place] Comment on above: Patients with DETECT ED Hepatitis C Ab results should have a new specimen submitted for supplemental testing with a Hepatitis C Quantitative RNA assay (viral load), if clinically indicated. Test Performed by [facility], [address] [place], [place] [id number] [place] [address] HAV IgM IA Qn (S) NOT DETECTED Not-Detect ed [place] Hep B Core Ab, IgM NOT DETECTED Not-Detec jae [place] Hepatitis B Surface Ag NOT DETECTED Not-D etected [place] Hepatitis C Ab NOT DETECTED Not-Detected [place] Comment on above: Patients with DETECT ED Hepatitis C Ab results should have a new specimen submitted for supplemental testing with a Hepatitis C Quantitative RNA assay (viral load), if clinically indicated. Test Performed by [facility], [facility] [place] [address] [place] PROCALCITONINon 09-15-2018 Procalcitonin <0.10 <0.10 ng/mL [place] Sodium [Moles/Vol] See Below [place] Comment on above: PCT <0.50 = Low risk of severe sepsis and/or septic shock. PCT >2.00 = High risk of severe sepsis and/or septic shock. Test Performed by [facility], [address] [place] [address] [place] Troponinon 09-15-2018 Troponin I.cardiac [Mass/Vol] 0.012 ng/mL 0 - 0.034 ng/mL [place] Comment on above: < 0.034 = negative 0.034 0.120 = indeterminate > 0.120 = positive Test Performed by [facility], [address], [place], [place] [address] [place] Troponin I.cardiac [Mass/Vol] ng/mL 0 - 0.034 ng/mL [place] Comment on above: < 0.034 = negative 0.034 0.120 = indeterminate > 0.120 = positive Test Performed by [facility], [address] [place] [address] [place] Troponin I.cardiac [Mass/Vol] ng/mL 0 - 0.034 ng/mL [place] Comment on above: < 0.034 = negative 0.034 0.120 = indeterminate > 0.120 = positive Test Performed by [facility], [address] [place] [address] [place] US ABDOMEN LIMITEDon 019 Patient Name: PREMA VILLALPANDO ---Ultrasound--- Exam Date/Time 09/15/2018 16:42:00 EDT Exam US Abdomen Limited Ordering Physician DO MORTON LISA Accession Number [id number] CPT4 Codes 80595 () Reason For Exam elevated liver function [...] RISA Transcribed Date and Time: 09/15/2018 6:24 [facility] [place] [facility] Results From [facility] - 09/15/2018 6:24 PM EDT Patient Name: PREMA VILLALPANDO ---Ultrasound--- Exam Date/Time 09/15/2018 16:42:00 EDT Exam US Abdomen Limited Ordering Physician DO MORTON LISA Accession Number [id number] CPT4 Codes 95386 () Reason For Exam elevated liver function [...] RISA Transcribed Date and Time: 09/15/2018 6:24 [facility] Urinalysison 09-15-2018 Appearance (U) Clear [place] Comment on above: Reference Range: Jonathan ar Bilirubin Urine Negative mg/dL [place] Comment on above: Reference Range: Neg ative Color (U) Light-Yellow [place] Comment on above: Reference Range: Lt. Yellow Glucose, Ur Normal mg/dL [place] Comment on above: Reference Range: Nor mal (<70) Ketones Ql (U) Negative mg/dL [place] Comment on above: Reference Range: Neg ative LEUKOCYTES, UA Negative Xavier/uL [place] Comment on above: Reference Range: Neg ative Nitrite, Urine Negative [place] Comment on above: Reference Range: Neg ative Occult Blood,Urine Negative mg/dL [place] Comment on above: Reference Range: Neg ative pH (U) 6.5 [pH] [place] Protein (U) [Mass/Vol] Negative mg/dL [place] Comment on above: Reference Range: Neg ative Specific [place], Urine 1.006 [place] Urobilinogen, Urine Normal mg/dL [place] Comment on above: Reference Range: Nor mal (0-1) Test Performed by [facility], [address] [place] [address] [place] [address] [place] XR CHEST STANDARD (2 VW)on 0 09-15-2018 [facility], [facility] Incoming Radiology Results From [facility] - 09/15/2018 5:37 PM EDT Patient Name: PREMA VILLALPANDO ---Diagnostic Radiology--- Exam Date/Time 09/15/2018 15:22:39 EDT Exam CR Chest PA/LAT Ordering Physician DO MORTON LISA Accession Number [id number] CPT4 Codes 79542 () Reason For Exam elevated wbc Report [...] RISA Transcribed Date and Time: 09/15/2018 5:37 [place] Patient Name: PREMA VILLALPANDO ---Diagnostic Radiology--- Exam Date/Time 09/15/2018 15:22:39 EDT Exam CR Chest PA/LAT Ordering Physician DO MORTON LISA Accession Number [id number] CPT4 Codes 29153 () Reason For Exam elevated wbc Report [...] RISA Transcribed Date and Time: 09/15/2018 5:37 [place] Vital Signs Date Time Vital Sign Value Performing Clinician Facility 08-18-2023 11:05-0400 Body height 152.4 cm Toni Bey MD Work Phone: [facility] 08-18-2023 11:05-0400 Body mass index (BMI) [Ratio] 20.15 kg/m2 Toni Bey MD Work Phone: [facility] 08-18-2023 11:05-0400 Body weight 46.81 kg Toni Bey MD Work Phone: [facility] 08-18-2023 11:05-0400 Diastolic blood pressure 56 mm[Hg] Toni Bey MD Work Phone: [facility] 08-18-2023 11:05-0400 Heart rate 62 /min Toni Bey MD Work Phone: [facility] 08-18-2023 11:05-0400 Respiratory rate 16 /min Tnoi Bey MD Work Phone: [facility] 08-18-2023 11:05-0400 SaO2% (BldA) [Mass fraction] 97 % Toni Bey MD Work Phone: [facility] 08-18-2023 11:05-0400 Systolic blood pressure 106 mm[Hg] Toni Bey MD Work Phone: [facility] 04-04-2023 11:16-0500 Body temperature 97.1 [degF] Dr. Mita Morton Work Phone: [facility] 04-04-2023 11:16-0500 Diastolic blood pressure 56 mm[Hg] Dr. Mita Morton Work Phone: [facility] 04-04-2023 11:16-0500 Heart rate 68 /min Dr. Mita Morton Work Phone: [facility] 04-04-2023 11:16-0500 Respiratory rate 16 /min Dr. Mita Morton Work Phone: [facility] 04-04-2023 11:16-0500 SaO2% (BldA) [Mass fraction] 98 % Dr. Mita Morton Work Phone: [facility] 04-04-2023 11:16-0500 Systolic blood pressure 134 mm[Hg] Dr. Mita Morton Work Phone: [facility] 04-04-2023 10:15-0500 Body height 152.[address] Mita Morton Work Phone: [facility] 04-04-2023 10:15-0500 Body mass index (BMI) [Ratio] 20.3 kg/m2 Dr. Mita Morton Work Phone: [facility] 04-04-2023 10:15-0500 Body weight 47.[address] Mita Morton Work Phone: [facility] 01-04-2023 12:48-0500 Body temperature 98.4 [degF] Dr. Mita Morton Work Phone: [facility] 01-04-2023 12:48-0500 Diastolic blood pressure 55 mm[Hg] Dr. Mita Morton Work Phone: [facility] 01-04-2023 12:48-0500 Heart rate 81 /min Dr. Mita Morton Work Phone: [facility] 01-04-2023 12:48-0500 Respiratory rate 16 /min Dr. Mita Morton Work Phone: [facility] 01-04-2023 12:48-0500 SaO2% (BldA) [Mass fraction] 98 % Dr. Mita Morton Work Phone: [facility] 01-04-2023 12:48-0500 Systolic blood pressure 115 mm[Hg] Dr. Mita Morton Work Phone: [facility] 01-04-2023 11:46-0500 Body height 152.[address] Mita Morton Work Phone: [facility] 01-04-2023 11:46-0500 Body mass index (BMI) [Ratio] 19.5 kg/m2 Dr. Mita Morton Work Phone: [facility] 01-04-2023 11:46-0500 Body weight 45.[address] Mita Morton Work Phone: [facility] 08-25-2022 10:12-0400 Body height 152.4 cm Toni Bey MD Work Phone: [facility] 08-25-2022 10:12-0400 Body mass index (BMI) [Ratio] 19.65 kg/m2 Toni Bey MD Work Phone: [facility] 08-25-2022 10:12-0400 Body weight 45.63 kg oTni Bey MD Work Phone: [facility] 08-25-2022 10:12-0400 Diastolic blood pressure 60 mm[Hg] Toni Bey MD Work Phone: [facility] 08-25-2022 10:12-0400 Heart rate 68 /min Toni Bey MD Work Phone: [facility] 08-25-2022 10:12-0400 Respiratory rate 16 /min Toni Bey MD Work Phone: [facility] 08-25-2022 10:12-0400 SaO2% (BldA) [Mass fraction] 95 % Toni Bey MD Work Phone: [facility] 08-25-2022 10:12-0400 Systolic blood pressure 110 mm[Hg] Toni Bey MD Work Phone: [facility] 06-16-2022 19:58-0400 Body temperature 97.39 [degF] Eric Cintron MD Work Phone: [facility] 06-16-2022 19:58-0400 Diastolic blood pressure 61 mm[Hg] Eric Cintron MD Work Phone: [facility] 06-16-2022 19:58-0400 Heart rate 77 /min Eric Cintron MD Work Phone: [facility] 06-16-2022 19:58-0400 Respiratory rate 18 /min Eric Cintron MD Work Phone: [facility] 06-16-2022 19:58-0400 SaO2% (BldA) [Mass fraction] 97 % Eric Cintron MD Work Phone: [facility] 06-16-2022 19:58-0400 Systolic blood pressure 123 mm[Hg] Eric Cintron MD Work Phone: [facility] 06-01-2022 23:41-0400 Diastolic blood pressure 59 mm[Hg] Dr. Mita Morton Work Phone: [facility] 06-01-2022 23:41-0400 Heart rate 14 /min Dr. Mita Morton Work Phone: [facility] 06-01-2022 23:41-0400 Respiratory rate 68 /min Dr. Mita Morton Work Phone: [facility] 06-01-2022 23:41-0400 Systolic blood pressure 124 mm[Hg] Dr. Mita Morton Work Phone: [facility] 06-01-2022 23:07-0400 SaO2% (BldA) [Mass fraction] 96 % Dr. Mita Morton Work Phone: [facility] 06-01-2022 20:32-0400 Body mass index (BMI) [Ratio] 19.4 kg/m2 Dr. Mita Morton Work Phone: [facility] 06-01-2022 20:32-0400 Body weight 45.[address] Mita Morton Work Phone: [facility] 06-01-2022 19:08-0400 Body height 152.[address] Mita Morton Work Phone: [facility] 06-01-2022 19:08-0400 Body temperature 98 [degF] Dr. Mita Morton Work Phone: [facility] 05-13-2022 14:19-0400 Body temperature 98.5 [degF] Dr. Mita Morton Work Phone: [facility] 05-13-2022 14:19-0400 Diastolic blood pressure 57 mm[Hg] Dr. Mita Morton Work Phone: [facility] 05-13-2022 14:19-0400 Heart rate 64 /min Dr. Mita Morton Work Phone: [facility] 05-13-2022 14:19-0400 Respiratory rate 16 /min Dr. Mita Morton Work Phone: [facility] 05-13-2022 14:19-0400 SaO2% (BldA) [Mass fraction] 98 % Dr. Mita Morton Work Phone: [facility] 05-13-2022 14:19-0400 Systolic blood pressure 120 mm[Hg] Dr. Mita Morton Work Phone: [facility] 05-12-2022 14:31-0400 Body height 149.[address] Mita Morton Work Phone: [facility] 05-12-2022 14:31-0400 Body weight 44.[address] Mita Morton Work Phone: [facility] 05-12-2022 12:18-0400 Body mass index (BMI) [Ratio] 19.7 kg/m2 Dr. Mita Morton Work Phone: [facility] 02-23-2022 08:20-0500 Diastolic blood pressure 60 mm[Hg] Lalitha Powell MD Work Phone: [facility] 02-23-2022 08:20-0500 Heart rate 84 /min Lalitha Powell MD Work Phone: [facility] 02-23-2022 08:20-0500 Respiratory rate 18 /min Lalitha Powell MD Work Phone: [facility] 02-23-2022 08:20-0500 SaO2% (BldA) [Mass fraction] 100 % Lalitha Powell MD Work Phone: [facility] 02-23-2022 08:20-0500 Systolic blood pressure 113 mm[Hg] Lalitha Powell MD Work Phone: [facility] 02-23-2022 07:31-0500 Body height 152.4 cm Lalitha Powell MD Work Phone: [facility] 02-23-2022 07:31-0500 Body mass index (BMI) [Ratio] 18.94 kg/m2 Lalitha Powell MD Work Phone: [facility] 02-23-2022 07:31-0500 Body temperature 97.3 [degF] Lalitha Powell MD Work Phone: [facility] 02-23-2022 07:31-0500 Body weight 44 kg Lalitha Powell MD Work Phone: [facility] 06-04-2020 11:08-0400 Diastolic blood pressure 50 mm[Hg] Betsy Cundra PA-C [facility] Work Phone: 06-04-2020 11:08-0400 Heart rate 73 /min Betsy Cundra PA-C [facility] Phone[facility] Work Phone: 06-04-2020 11:08-0400 Respiratory rate 15 /min Betsy Cundra PA-C [facility] Phone[facility] Work Phone: 06-04-2020 11:08-0400 SaO2% (BldA) [Mass fraction] 100 % Betsy Cundra PA-C Work Phone: [facility] Work Phone: 06-04-2020 11:08-0400 Systolic blood pressure 103 mm[Hg] Betsy Cundra PA-C [facility] Phone[facility] Work Phone: 11-09-2019 11:21-0400 BP Diastolic 62 mm[Hg] [facility] [place] 11-09-2019 11:21-0400 BP Systolic 121 mm[Hg] [facility] [place] 11-09-2019 11:21-0400 Pulse (Heart Rate) 81 /min [employer] [facility], [place] 11-09-2019 11:21-0400 Pulse Oximetry 100 % [facility] [place] 11-09-2019 11:21-0400 Respiratory Rate 16 /min [employer] [facility] [place] 03-07-2019 12:11-0500 Diastolic blood pressure 65 mm[Hg] [...] Phone: 02-18-2019 05:07-0500 Body temperature 98.29 [degF] Sonny Montague MD Work Phone: [facility] Work [...] Phone: 09-21-2018 14:16-0400 Body Temperature 97.59 [degF] [facility] [employer] [facility] [place] 09-21-2018 14:16-0400 BP Diastolic 74 mm[Hg] [facility] , [place] 09-21-2018 14:16-0400 BP Systolic 141 mm[Hg] [facility] , [place] 09-21-2018 14:16-0400 Pulse (Heart Rate) 74 /min [facility], [place] 09-21-2018 14:16-0400 Pulse Oximetry 98 % [facility] , [place] 09-21-2018 14:16-0400 Respiratory Rate 16 /min [facility] [place] [place] 09-17-2018 16:01-0400 Height 160 cm Mita Morton [facility] , [place] 09-15-2018 13:00-0400 BMI (Body Mass Index) 21.72 kg/m2 Mita Moses [facility], [place] 09-15-2018 13:00-0400 Body weight 55.61 kg Mita Morton [facility] , [place] Encounters Encounter Date Encounter Type Care Provider Facility Start: 08-09-2024 ambulatory Mita M Esterle Facility :[facility] Start: 06-12-2024 Registered Referred Anabel STEPHENSON [facility] Start: 06-12-2024 End: 06-12-2024 ambulatory Mita M Praveen Facility:[facility] Start: 05-09-2024 End: 05-09-[address] Mita Morton DO Work Phone: [facility] Work Phone: Start: 05-09-2024 End: 05-09-[address] Anabel Duvall MD -[facility] Work Phone: Start: 04-10-2024 End: 04-10-2024 ambulatory Mita M Praveen Facility:[facility] Start: 04-10-2024 End: 04-10-2024 Patient encounter procedure Fallon Mcclendon COMPUTER ANALYST SUPERVISORChelsey -[facility] Work Phone: Start: 03-21-2024 End: 03-21-2024 ambulatory Mita Janie Morton Facility:[facility] Start: 03-21-2024 End: 03-21-[address] Anabel Duvall MD -[facility] Work Phone: Start: 03-16-2024 ambulatory Mita M Esterle Facility :[facility] Start: 03-16-2024 Registered Referred Anabel Cabral [facility] Start: 02-10-2024 End: 02-10-2024 ambulatory López Antonio Facility:[facility] Start: 01-25-2024 End: 01-25-2024 ambulatory Anabel Duvall Facility:[facility] Start: 12-20-2023 End: 12-20-2023 Subsequent hospital visit by physician Mita Morton DO Work Phone: [facility] Comment on above: Other specified dise ases of liver Start: 12-20-2023 End: 12-20-2023 ambulatory MITA [facility] Start: 12-16-2023 End: 12-17-2023 ambulatory Mita M Esterle Facility:[facility] Start: 12-15-2023 End: 12-15-2023 ambulatory [facility] COMPUTER ANALYST SUPERVISOR Facility:[facility] Start: 12-09-2023 End: 12-09-2023 [facility]ulatory [facility] COMPUTER ANALYST SUPERVISOR Facility:[facility] Start: 12-03-2023 End: 12-03-2023 ambulatory Mita Janie Morton Facility:[facility] Start: 12-01-2023 End: 03-01-2024 Transcribe Orders Mita M Esterle DO Work Phone: [facility] Central Scheduling Comment on above: Other specified dise ases of liver (Primary Dx) Start: 11-22-2023 End: 11-22-2023 ambulatory Erich GIRON Facility:[facility] Start: 11-22-2023 End: 11-22-2023 ambulatory Mita Janie Morton Facility:[facility] Start: 11-11-2023 End: 11-11-2023 [facility] Start: 11-11-2023 End: 11-11-2023 Subsequent hospital visit by physician Mita Morton DO Work Phone: [facility] Comment on above: Other specified abno rmal findings of blood chemistry Start: 10-26-2023 End: 01-25-2024 Transcribe Orders Mita M Esterle DO Work Phone: [facility] Central Scheduling Comment on above: Other specified abno rmal findings of blood chemistry (Primary Dx) Start: 08-18-2023 End: 08-18-2023 Office outpatient visit 25 minutes Toni Bey MD Work Phone: [facility] Cardiology Comment on above: 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); Persistent atrial fibrillation (HCC); Mixed hyperlipidemia; Vascular dementia, unspecified dementia severity, unspecified whether behavioral, psychotic, or mood disturbance or anxiety (HCC) Start: 08-18-2023 End: 08-18-2023 ambulatory TONI BEY [facility] Start: 07-23-2023 End: 07-23-2023 Telephone encounter Toni Bey MD Work Phone: [facility] Comment on above: Cardiac Clearance Start: 07-20-2023 ambulatory Sharmila Connell RN [facility] Clinical Communication Start: 07-20-2023 Patient encounter procedure Sharmila Connell RN [facility] Clinical Communication Start: 05-11-2023 End: 08-10-2023 Transcribe Orders Brittany Mitchell BRASS MOLDER - CHANGEOVER OPERATOR Work Phone: [facility] Comment on above: Dorsalgia, unspecifi ed (Primary Dx); Unspecified urinary incontinence Start: 04-10-2023 Refill Yeny benjamin BRASS MOLDER - CHANGEOVER OPERATOR Work Phone: [facility] Start: 04-04-2023 End: 04-04-2023 Emergency department patient visit Dr. Mita Morton Work Phone: [facility]Emergency Department Work Phone: Start: 04-04-2023 End: 04-04-2023 Patient encounter procedure Billie Reid BRASS MOLDER.CHANGEOVER OPERATOR Work Phone: [facility] Comment on above: Injury of head, init ial encounter (Primary Dx) Start: 03-04-2023 End: 03-04-[address] Mita Morton Work Phone: [facility] Gastroenterology Work Phone: Start: 01-04-2023 Non-patient / Non-visit Dr. Joana Morton Work Phone: [facility] Start: 01-04-2023 End: 01-04-2023 Admission to same day surgery center Dr. Mita Morton Work Phone: [facility]-Endoscopy Work Phone: Start: 01-04-2023 End: 01-04-[address] Mita Morton Work Phone: [facility] Work Phone: Start: 12-09-2022 Telephone encounter Toni sánchez MD Work Phone: [facility] Comment on above: Cardiac Clearance Start: 10-28-2022 End: 10-28-2022 Subsequent hospital visit by physician Mita Morton DO Work Phone: [facility] Comment on above: Other specified abno rmal findings of blood chemistry Start: 10-23-2022 Transcribe Orders Mita Myers Work Phone: [facility] Central Scheduling Comment on above: Other specified abno rmal findings of blood chemistry (Primary Dx) Start: 10-21-2022 End: 10-21-[address] Mita Morton Work Phone: [facility] Work Phone: Start: 10-21-2022 End: 10-21-[address] 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 Laboratory Comment on above: Arrived Hyperlipidemia, unsp ecified (Primary Dx) Start: 09-14-2022 Transcribe Orders Toni Bey MD Work Phone: 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 Mita carlos Work Phone: [facility] Start: 06-30-2022 End: 06-30-[address] Mita Morton Work Phone: [facility] Work Phone: Start: 06-26-[address] Mita carlos Work Phone: [facility] Start: 06-25-[address] Mita carlos Work Phone: [facility] Start: 06-24-2022 End: 06-24-[address] Mita Morton Work Phone: [facility] Work Phone: Start: 06-13-2022 End: 06-16-2022 Evaluation and management of inpatient Eric Cintron MD Work Phone: [facility] 2E TELEMETRY Comment on above: Anemia (Primary Dx); Hyponatremia; Hepatitis Start: 06-13-2022 End: 06-13-2022 Subsequent hospital visit by physician Mita Morton DO Work Phone: [facility] Vascular Lab Comment on above: Other specified symp toms and signs involving the circulatory and respiratory systems Start: 06-01-2022 End: 06-02-2022 Emergency department patient visit Dr. Mita Morton Work Phone: [facility]-Emergency Department Start: 05-27-2022 Transcribe Orders Mita Myers Work Phone: [facility] Central Scheduling Comment on above: Other specified symp toms and signs involving the circulatory and respiratory systems (Primary Dx) Start: 05-13-2022 Non-patient / Non-visit Dr. Joana Morton Work Phone: [facility] Start: 05-13-2022 End: 05-13-2022 Non-patient / Non-visit Dr. Mita Morton Work Phone: [facility] Start: 05-12-2022 Non-patient / Non-visit Dr. Joana Morton Work Phone: [facility] Start: 05-12-2022 Non-patient / Non-visit Dr. Joana Morton Work Phone: [facility] Start: 05-12-2022 End: 05-13-2022 Evaluation and management of inpatient Dr. Mita Morton Work Phone: [facility]-Medical Surgical 3 Start: 05-12-2022 End: 05-13-[address] 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) Start: 05-09-2021 End: 05-09-2021 Discharged Recurring [facility]-Physical Therapy Start: 02-10-2021 End: 02-10-2021 Discharged Recurring [facility] Therapy Start: 08-20-2020 End: 08-20-2020 Subsequent hospital visit by physician Mita Morton DO Work Phone: [facility] [employer] [facility] Comment on above: Abnormal results of liver function studies Start: 06-04-2020 End: 06-04-2020 Subsequent hospital visit by physician Betsy Reeves PA-C Work Phone: [facility] Comment on above: Left thyroid nodule Start: 05-21-2020 End: 05-21-2020 Subsequent hospital visit by physician Zoe Wyatt Work Phone: [facility] [place] Comment on above: Thyroid nodule Start: 02-07-2020 End: 02-07-2020 Subsequent hospital visit by physician Mita Morton Work Phone: [employer] [facility] Start: 11-09-2019 End: 11-09-2019 Subsequent hospital visit by physician Zoe Wyatt Work Phone: [facility] Comment on above: Thyroid nodule Start: 10-18-2019 End: 10-18-2019 Subsequent hospital visit by physician Mita Morton Work Phone: [facility] [employer] [facility] Comment on above: Nontoxic single thyr oid nodule Start: 08-21-2019 End: 08-21-2019 Subsequent hospital visit by physician Yeny Huntley Work Phone: [facility] Laboratory Comment on above: 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; Dyslipidemia Start: 04-04-2019 End: 04-04-2019 Subsequent hospital visit by physician Mita Morton Work Phone: [facility] [place] Comment on above: Arrived Start: 03-31-2019 End: 03-31-2019 Subsequent hospital visit by physician Mita Morton Work Phone: [facility] Start: 03-07-2019 End: 03-07-2019 Subsequent hospital visit by physician Lisa Smiley MD Work Phone: [facility] Comment on above: Arrived Start: 02-11-2019 End: 02-18-2019 Evaluation and management of inpatient Sonny Montague MD Work Phone: [facility] MED SURG Comment on above: Calculus of bile sanam t without cholecystitis with obstruction (Primary Dx); Dilation of biliary tract Start: 09-15-2018 End: 09-21-2018 Evaluation and management of inpatient Mita Lima Evettegonzalo Work Phone: [facility] 4S TELEMETRY Procedures Date Procedure Procedure Detail Performing Clinician Start: 03-16-2024 Measurement of renal function Dr. Mita carlos DO Work Phone: Comment on above: GFR Calc Start: 11-11-2023 Us abdominal real time w/image limited Mita Alasgonzalo DO Work Phone: Start: 08-18-2023 Ecg routine ecg w/least 12 lds w/i&r Toni Bey MD Work Phone: Start: 01-04-[address] Mita gallaghree Work Phone: Start: 09-24-2022 Comprehensive metabolic panel [...] Phone: Comment on above: Test Performed by [employer], [address] [place] [id number] Start: 02-15-2019 Cmbn ndsc cathj biliary&pncrtc ductal [...] Start: 02-13-2019 Assay of magnesium Gem A Boelus DO Work Phone: Start: 02-13-2019 BASIC METABOLIC PANEL W/ REFLEX TO MG FOR LOW K Gem A Boelus DO Work Phone: Start: 02-13-2019 Hepatic function panel Gem A Loomi s DO Work Phone: Start: 02-12-2019 ADD ON LAB TEST Gem A Boelus DO Work Phone: Start: 02-12-2019 Bilirubin direct Sonny Peres MD Work Phone: Start: 02-11-2019 Mri abdomen w/o contrast material Elisab eth A Boelus DO Work Phone: Start: 02-11-2019 End: 02-11-2019 [...] DTaP/Tdap/Td vaccine (2 - Td or Tdap) [facility] Start: 12-01-2029 DTaP/Tdap/Td vaccine (2 - Td) DTaP/Tdap/Td vaccine (2 - Td) [facility] Work Phone: Start: 12-01-2029 DTaP/Tdap/Td Vaccines (2 - Td or Tdap) DTaP/Tdap/Td Vaccines (2 - Td or Tdap) [facility] Start: 09-25-2027 Lipid panel Lipid Panel [facility] Start: 09-24-2025 Diabetes Screening Diabetes Screening [facility] Start: 08-18-2024 End: 08-18-2024 Patient encounter procedure [facility] Cardiology Start: 10-10-2023 COVID-19 Vaccine () COVID-19 Vaccine () [facility] Start: 10-10-2023 COVID-19 Vaccine () COVID-19 Vaccine () [facility] Start: 10-10-2023 Influenza vaccination [facility] Start: 09-25-2023 Creatinine measurement Creatinine Level [facility] Start: 09-25-2023 Diabetes: Estimated Glomerular Filtration Rate for Kidney Health Diabetes: Estimated Glomerular Filtration Rate for Kidney Health [facility] Start: 09-25-2023 Potassium measurement Potassium Level [facility] Start: 08-18-2023 End: 08-18-2023 Patient encounter procedure 08/18/2023 11:00 AM EDT Office Visit [facility] [address] [place] [id number] Toni Bey MD [address] [place] [address] [facility] Start: 08-06-2023 Lipid screen Lipid screen [place], [place] Start: 06-04-2023 Medicare Annual Wellness (AWV) Medicare Annual Wellness (AWV) [facility] Start: 04-04-2023 [facility] Start: 02-08-2023 Advance Directive Discussion Advance Directive Discussion [facility] Start: 02-08-2023 Depression Assessment Depression Assessment [facility] Start: 01-04-2023 Egd insert guide wire dilator passage esophagus EGD GUIDE WIRE INSERTION [facility] Start: 01-04-2023 Egd transoral biopsy single/multiple EGD BIOPSY SINGLE/MULTIPLE [facility] Start: 01-04-2023 Patient discharge [facility] Start: 10-09-2022 COVID-19 Vaccine ( season) COVID-19 Vaccine () [facility] Start: 10-09-2022 Influenza vaccination Influenza Vaccine (#1) [facility] Start: 08-25-2022 End: 08-25-2022 Patient encounter procedure 08/25/2022 10:00 AM EDT Office Visit [facility] [address] [place] [phone] Toni Bey MD [address] [place] [address] [facility] Start: 06-01-2022 [facility] Start: 05-14-2022 Blood chemistry [facility] Start: 05-13-2022 Patient discharge [facility] Start: 05-12-2022 Catheterization of vein [facility] Start: 05-12-2022 Care regimes management [facility] Start: 05-12-2022 Notification of physician [facility] Start: 05-12-2022 [facility] Start: 05-12-2022 Egd insert guide wire dilator passage esophagus EGD GUIDE WIRE INSERTION [facility] Start: 05-12-2022 Egd transoral biopsy single/multiple EGD BIOPSY SINGLE/MULTIPLE [facility] Start: 05-12-2022 Application of intermittent pneumatic compression device [facility] Start: 05-12-2022 Ambulation without limitation [facility] Start: 05-12-2022 Assessment of risk of venous thromboembolism [facility] Start: 05-12-2022 Insertion of catheter into peripheral vein [facility] Start: 05-12-2022 Providing care according to standard [facility] Start: 05-12-2022 Referral to gastroenterology service [facility] Start: 05-12-2022 [facility] Start: 05-12-2022 Following clinical pathway protocol [facility] Start: 05-12-2022 Admission procedure [facility] Start: 05-12-2022 Patient referral to dietitian [facility] Start: 03-13-2022 End: 03-13-2022 Patient encounter procedure 03/13/2022 Office Visit Gastroenterology Gin Finn, BRASS MOLDER - CHANGEOVER OPERATOR [address] [place] [address] [facility] Start: 02-26-2022 Hemoglobin A1c measurement Diabetes: Hemoglobin A1C [facility] Start: 02-23-2022 End: 02-23-2022 Esophagogastroduodenoscopy transoral diagnostic EGD DIAGNOSTIC Dysphagia 02/23/2022 7:42 AM EST [facility] Start: 12-30-2021 Creatinine measurement Creatinine monitoring [facility] Start: 12-30-2021 Potassium monitoring Potassium monitoring [facility] Start: 11-08-2021 Lipid panel [facility] Start: 01-10-2021 COVID-19 Vaccine (4 - Booster for Pfizer series) COVID-19 Vaccine (4 - Booster for Pfizer series) [facility] Start: 01-10-2021 COVID-19 Vaccine (4 - Pfizer series) COVID-19 Vaccine (4 - Pfizer series) [facility] Start: 10-17-2020 Statin Therapy [facility] [place] Start: 10-09-2020 Influenza vaccination Flu vaccine (#1) [facility] Work Phone: Start: 08-20-2020 Creatinine measurement Creatinine monitoring [facility] [place] Start: 08-20-2020 Potassium monitoring Potassium monitoring [place], [place] Start: 06-10-2020 End: 06-10-2020 Patient encounter procedure 06/10/2020 Office Visit General Surgery Kiko Bowie MD [address] [place], [place] [id number] Gen Surg - [facility] Start: 05-27-2020 End: 05-27-2020 Office Visit 05/27/2020 Office Visit General Surgery Kiko Bowie MD [address] [place], [place] [id number] Gen Surg - [facility] Start: 03-31-2020 Creatinine measurement Creatinine monitoring [facility] [place] Start: 03-31-2020 Creatinine monitoring Creatinine monitoring [place], [place] Start: 02-18-2020 Creatinine monitoring Creatinine monitoring [facility] Work Phone: Start: 02-18-2020 Potassium monitoring Potassium monitoring [facility] Work Phone: Start: 11-25-2019 Pneumococcal Vaccine: 50+ Years (2 of 2 - PCV) Pneumococcal Vaccine: 50+ Years (2 of 2 - PCV) [facility] Start: 11-25-2019 Pneumococcal Vaccine: 65+ (2 of 2 - PCV) Pneumococcal Vaccine: 65+ (2 of 2 - PCV) [facility] Start: 11-25-2019 Pneumococcal Vaccine: 65+ Years (2 - PCV) Pneumococcal Vaccine: 65+ Years (2 - PCV) [facility] Start: 11-25-2019 Pneumococcal Vaccine: 65+ Years (2 of 2 - PCV) Pneumococcal Vaccine: 65+ Years (2 of 2 - PCV) [facility] Start: 10-10-2019 Influenza vaccination Flu vaccine (#1) [place] Start: 09-22-2019 Creatinine monitoring Creatinine monitoring [place], [place] Start: 09-22-2019 Potassium monitoring Potassium monitoring [place] Start: 08-06-2019 Lipid panel Lipid screen [place], [place] Start: 08-06-2019 Lipid screen Lipid screen [facility] [employer] Phone: Start: 05-25-2019 End: 05-25-2019 Office Visit 05/25/2019 Office Visit Cardiology Toni Bey MD [address] [place] [address] [phone] [facility] Start: 04-04-2019 Hospital Encounter 04/04/2019 Hospital Encounter Radiology Mita Morton, DO [address] [place] [place] [address] [phone] [facility] [place] Start: 10-09-2018 Influenza vaccination Flu vaccine (#1) [place], [place] Start: 10-04-2018 End: 10-04-2018 Office Visit 10/04/2018 Office Visit Cardiology Yeny Huntley, BRASS MOLDER - CHANGEOVER OPERATOR [address] [place] [address] [phone] [facility] Start: 08-05-2018 Annual Wellness Visit (AWV) Annual Wellness Visit (AWV) [facility] Start: 2017 RSV Immunization for Adults (1 - 1-dose 75+ series) RSV Immunization for Adults (1 - 1-dose 75+ series) [facility] Start: 10-16-2007 Pneumococcal 65+ years Vaccine (1 of 2 - PCV13) Pneumococcal 65+ years Vaccine (1 of 2 - PCV13) [place] Start: 2005 Annual Wellness Visit (AWV) Annual Wellness Visit (AWV) [place] Start: 2002 Hepatitis B Vaccines (1 of 3 - Risk 3-dose series) Hepatitis B Vaccines (1 of 3 - Risk 3-dose series) [facility] Start: 2002 RSV Immunization aged 60 or older (1 - 1-dose 60+ series) RSV Immunization aged 60 or older (1 - 1-dose 60+ series) [facility] Start: 1992 Colon cancer screen colonoscopy Colon cancer screen colonoscopy [place], [place] Start: 1992 Shingles Vaccine (1 of 2) Shingles Vaccine (1 of 2) [facility] Start: 1992 Shingrix Vaccine (1 of 2) Shingrix Vaccine (1 of 2) [facility] Start: 1992 Zoster Vaccines (1 of 2) Zoster Vaccines (1 of 2) [facility] Start: 1961 DTaP/Tdap/Td vaccine (1 - Tdap) DTaP/Tdap/Td vaccine (1 - Tdap) [place] Start: 1961 Hepatitis A Vaccines (1 of 2 - Risk 2-dose series) Hepatitis A Vaccines (1 of 2 - Risk 2-dose series) [facility] Start: 1961 Urine microalbumin profile DTaP,Tdap,Td Vaccine (1 - Tdap) [facility] Start: 1961 Urine screening for protein Diabetes: Urine Protein Screening [facility] Start: 1960 Diabetes: Urine Albumin-Creatinine Ratio for Kidney Health Diabetes: Urine Albumin-Creatinine Ratio for Kidney Health [facility] Start: 1960 Hepatitis C screening Hepatitis C Screening [facility] Start: 1954 Depression Monitoring Depression Monitoring [facility] Start: 1954 Depression Screen Depression Screen [facility] Start: 1954 Depression Screening Depression Screening [facility] Start: 1953 DTaP/Tdap/Td vaccine (1 - Tdap) DTaP/Tdap/Td vaccine (1 - Tdap) [facility] Work Phone: Start: 1952 Diabetic foot examination Diabetes: Foot Exam [facility] Start: 1952 Glaucoma screening Diabetes: Retinopathy Screening [facility] Start: 1952 Preventive dental service Diabetes: Dental Exam [facility] Start: 10-16-1943 Hepatitis A Vaccines (1 of 2 - Risk 2-dose series) Hepatitis A Vaccines (1 of 2 - Risk 2-dose series) [facility] Start: 1942 Echocardiography Echocardiogram [facility] Start: 1942 Hemoglobin A1c measurement Diabetes: Hemoglobin A1C [facility] Start: 1942 Hepatitis B Vaccines (1 of 3 - 3-dose series) Hepatitis B Vaccines (1 of 3 - 3-dose series) [facility] Start: 1942 Medicare Annual Wellness (AWV) Medicare Annual Wellness (AWV) [facility] Start: 1942 Screening for osteoporosis Bone Density Scan [facility] Bacteria identified in Blood by Culture Blood culture #1 - Suspected Infection Microbiology STAT 06/13/2022 2:43 PM EDT [facility] Bacteria identified in Blood by Culture Blood culture #1 - Suspected Infection Microbiology STAT 06/13/2022 3:49 PM EDT [facility] Bacteria identified in Urine by Culture Urine Culture [facility] End: 03-07-2019 Blood glucose - POCT Blood glucose - POCT Point of Care Testing Routine One Time for 1 Occurrences starting 03/07/2019 until 03/07/2019 [facility] Work Phone: Comment on above: One Time for 1 Occurrences starting 02/09 until 03/07/2019 Comprehensive metabo lic 2000 panel Comprehensive Metabolic Panel Lab Routine Daily until discontinued starting 09/17/2018, 1 completed [place] Comment on above: Daily until discontinued starting 2018, 1 completed End: 05-13-2021 CT HEAD WO CONTRAST [facility] Work Phone: Comment on above: Once for 1 Occurrences starting 05/14/19 22 until 05/13/2021 End: 06-13-2022 Hemoglobin.gastrointestinal.low er [Presence] in Stool by Immunoassay --1st specimen [facility] [employer] [facility] Work Phone: Comment on above: STAT (Lab) for 1 Occurrences starting until 06/13/2022 Once (Lab) for 1 Occ urrences starting 06/13/2022 until 06/13/2022 Initiate Oxygen Ther apy Protocol [facility], [place] Comment on above: Daily until discontinued starting 2018 Daily until disconti nued starting 02/11/2019 End: 12-20-2023 MR Abdomen WO and W [facility] Work [facility]: Comment on above: Once for 1 Occurrences starting 12/20/19 24 until 12/20/2023 OUTSIDE PROCEDURE SCAN OUTSIDE P ROCEDURE SCAN Procedures Ordered: 06/13/2022 [facility] Comment on above: Ordered: 06/13/2022 OUTSIDE PROCEDURE SCAN OUTSIDE P ROCEDURE SCAN Procedures Ordered: 09/24/2022 [facility] Comment on above: Ordered: 09/24/2022 OUTSIDE PROCEDURE SCAN OUTSIDE P ROCEDURE SCAN Procedures Ordered: 10/27/2022 [facility] Comment on above: Ordered: 10/27/2022 Patient Education [facility] Work Phone: Patient referral [facility] Work Phone: End: 03-07-2019 Pulse Oximetry Spot Check Pulse Oximetry Spot Check Respiratory Care Routine One Time for 1 Occurrences starting 03/07/2019 until 03/07/2019 [facility] Work Phone: Comment on above: One Time for 1 Occurrences starting 02/09 until 03/07/2019 End: 09-21-2018 Surgical Pathology Surgical Pathology Lab Routine Once for 1 Occurrences starting 09/21/2018 until 09/21/2018 [facility] Comment on above: Once for 1 Occurrences starting 09/22/19 19 until 09/21/2018 Surgical Pathology [facility] [place], [place] End: 02-15-2019 Surgical Pathology Surgical Pathology Lab Routine Once for 1 Occurrences starting 02/15/2019 until 02/15/2019 [facility] Work Phone: Comment on above: Once for 1 Occurrences starting 02/15/19 20 until 02/15/2019 [facility] exam [facility]: Comment on above: Release Upon Ordering for 1 Occurrences starting 02/23/2022, 1 completed End: 10-28-2022 US Abdomen [facility] [employer] Work Phone: Comment on above: Once for 1 Occurrences starting 10/29/19 23 until 10/28/2022 End: 05-21-2020 US Thyroid US Thyroid Imaging Routine Thyroid nodule 1 Occurrences starting 05/21/2020 until 05/21/2020 [facility] Work Phone: Comment on above: 1 Occurrences starting 05/21/2020 until 05/21/2020 US THYROID US THYROID Imagi ng Routine Thyroid nodule 05/21/2020 1:55 PM EDT [facility] Work Phone: Immunizations Immunization Date Immunization Notes Care Provider [facility] 01-11-2023 influenza virus vaccine, unspecified formulation Mita Morton DO Work Phone: [facility] 12-23-2021 Influenza, high dose seasonal Dr. Mita Morton DO Work Phone: [facility] [place] 12-23-2021 influenza, high dose seasonal, preservative-free Dr. Mita Morton Work Phone: [facility] [place] 12-23-2021 influenza virus vaccine, unspecified formulation Toni Bey MD Work Phone: [facility] 11-15-2020 Pfizer SARS-CoV-[address] Mita Morton Work Phone: [facility] [place] 05-03-2020 Pfizer SARS-CoV-[address] Mita Morton Work Phone: [facility] [place] 04-09-2020 Pfizer SARS-CoV-[address] Mita Morton Work Phone: [facility] [place] Payers Date Payer Category Payer Self-pay [id number] 2021 Medicare supplementa l policy (as second payer) [facility] [id number] 2021 Unknown [id number] .[id number] 2015 Unknown [id number] .[id number] 2015 Unknown [employer] M [employer] [address] [id number] 2015-Present [phone] [address] [place] [address] [id number] [id number] .[id number] 2015 Unknown [id number] .7.3.246520.315 2014 Medicare MEDICARE MEDICAR E PART A AND B xxxxxxxxxxx 2014-Present [phone] [place] [address] xxxxxxxxxxx [id number] .[id number] 2014 Medicare MEDICARE MEDICAR E PART A AND B [id number] 2014-Present [phone] [address] [place] [address] [id number] .7.3.704677.315 2007 Medicare [id number]. 1.13.680.2 .7.3.422994.315 2007 Medicare [id number] 1.2.840.120377.1.13.239.2 .7.3.799735.315 Unknown [id number] 2.16.840.1.893486.3.579.2 .462 Unknown [id number] 2.16.840.1.439802.3.579.2 .462 Unknown [id number] 2.16.840.1.300493.3.579.2 .462 Unknown [id number] 2.16.840.1.727066.3.579.2 .462 Unknown [id number] 2.16.840.1.857364.3.579.2 .462 Unknown [id number] 2.16.840.1.788322.3.579.2 .462 Unknown [id number] 2.16.840.1.319874.3.579.2 .462 Unknown [id number] 2.16.840.1.393906.3.579.2 .462 Unknown [id number] 2.16.840.1.653196.3.579.2 .462 Unknown [id number] 2.16.840.1.716016.3.579.2 .462 Unknown [id number] 2.16.840.1.667589.3.579.2 .462 Unknown [id number] 2.16.840.1.671502.3.579.2 .462 Unknown [id number] 2.16.840.1.956547.3.579.2 .462 Unknown [id number] 2.16.840.1.348749.3.579.2 .462 Unknown [id number] 2.16.840.1.297626.3.579.2 .462 Social History Date Type Detail Facility Start: 09-21-2018 End: 07-27-2023 Tobacco smoking status NYIS Never smoker [facility] Start: 09-21-2018 End: 08-18-2023 Alcohol intake Not Currently [place], [place] Start: 1940 Sex Assigned At Not on file M [place] Start: 03-07-2019 End: 11-05-2020 Alcohol intake Ex-drinker (finding) [facility] Work Phone: Start: 08-04-2018 End: 03-07-2019 Tobacco use and exposure Never used [employer] [facility] [place], [place] Start: 1940 Sex Assigned At Female S [facility] Work Phone: Start: 02-13-2022 End: 10-28-2022 Exposure to SARS-CoV-2 (event) Not sure [facility] Start: 02-10-2019 End: 04-04-2023 Tobacco smoking status NHIS Unknown if ever smoked [facility] [place] Start: 02-10-2019 Non-smoker [facility] Start: 02-24-2022 End: 06-13-2022 Alcohol intake Not Asked [facility] Start: 06-14-2022 End: 08-18-2023 History of Social function [facility] Start: 11-27-2021 Sexual orientation Heterosexual (fin ding) [facility] Start: 08-25-2022 End: 08-18-2023 Alcohol intake Lifetime non-drinker (finding) [facility] Start: 09-08-2021 Sex Female (finding) [facility] NEGATED: Highlighted row [facility] [place] Medical Equipment Procedure Code Equipment Code Equipment Origin al Text Equipment Identifier Dates TEST SUGAR ONCE A DAY [id number] Start: 03-27-2021 TEST SUGAR ONCE A DAY [id number] Start: 03-27-2021 Goals Date Patient Goal Desired Activity /State Functional Status Date Assessment Result Facility 05-13-2022 Functional status Bathroom Privilege [facility] Work Phone: Mental Status Date Assessment Result Facility 01-04-2023 Cognitive function Voice/Name [facility] Work Phone: 06-01-2022 Cognitive function Level Of Cons ciousness Awake;Alert;Appropriate;Follow s Commands [facility] [place] Work Phone: 05-13-2022 Cognitive function Appropriate;Cooperativ e [facility] [place] Work Phone: 05-13-2022 Cognitive function Voice/Name [facility] Work Phone: Clinical Notes 02-13-2019 to 08-18-2023 Toni Bey MD - 08/18/2023 11:00 AM EDTTelephone Encounter - Olivia Leigh - 07/27/2023 9:00 AM EDTTelephone Encounter - Olivia Leigh - 07/27/2023 9:00 AM EDT Note Date & Type Note Facility 08-18-2023 History of Presen t illness Narrative [facility] [address] [facility] [address] Dept: [phone] Dept Visit type: Established : 1940 Chief [...] 1989 UPPER GASTROINTESTINAL ENDOSCOPY 08/08/2018 Dr [facility] Family History Family History Problem Relation Name [...] and Plan: 1. Coronary artery disease involving yerington coronary artery of [place] heart without angina pectoris 2. Persistent atrial [...] stopped her statin. documented in this encounter [facility] 07-27-2023 Telephone encount er Note Form signed and faxed back to [phone]. Form uploaded to chart [employer]. [facility] 07-27-2023 Miscellaneous Notes Formattin g of this note might be different from the original. Form signed and faxed back to [phone]. Form uploaded to [employer]. Received form from [facility] for cardiac clearance for EGD with MAC sedation. Form and last OV given to nurse. documented in this encounter [facility] 07-23-2023 Telephone encount er Note Received form from [facility] for cardiac clearance for EGD with MAC sedation. Form and last OV given to nurse. [facility] 07-23-2023 Miscellaneous Notes Formattin g of this note might be different from the original. Received form from [facility] for cardiac clearance for EGD with MAC sedation. Form and last OV given to nurse. documented in this encounter [facility] 07-20-2023 Telephone encount er Note S: Patient's [...] [2] no injury Protocols used: Falls and Djpcqou-[id number]-OV [facility] 07-20-2023 Miscellaneous Notes Formattin g of this note might be different from the original. S: Patient's daughter Hossein spoke with [facility] nurse regarding fall. B: Onset of symptoms/concern [...] [2] no injury Protocols used: Falls and Jxvnkqd-WVXXN-TR documented in this encounter [facility] 04-14-2023 Telephone encount er Note Patient is scheduled to see JDR on 08/18/23. [facility] 04-14-2023 Miscellaneous Notes Formattin g of this note might be different from the original. Patient is scheduled to see JDR on 08/18/23. BEATRIS: 08/25/22, Labs: 09/24/22 documented in this encounter [facility] 04-12-2023 Telephone encount er Note BEATRIS: 08/25/22, Labs: 09/24/22 [facility] 04-12-2023 Miscellaneous Notes Formattin g of this note might be different from the original. BEATRIS: 08/25/22, Labs: 09/24/22 documented in this encounter [facility] 04-04-2023 History of Presen t illness Narrative [...] to the ER. documented in this encounter [facility] 01-04-2023 History and physi sean note Note Date/Time January 04, 2023 11:21am [facility] Medical Records Department [address] [place] [address] History & Physical Exam 01/04/23 1120 MR#: [id number] Acct: [id number] Name: PREMA VILLALPANDO Rep #:[id number] : 1940 82 From: Roque Herrera DO PCP: Mita Morton DO Status:[facility] Location: [place] [address] History and Physical Date of Admission: 01/04/23 [...] swallow liquids.? Her last dilatation was in [place]. ?Imaging demonstrates a large hiatal hernia. [facility] Medical History (Updated 05/12/22 @ 18:[address] 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 Form uploaded to [employer]. [id number] Miscellaneous Notes* Telephone Encounter - Olivia Leigh - 12/10/2022 1:03 PM EDT Form signed and faxed back to [phone] on 12/10/22. Form uploaded to [employer]. * Telephone Encounter - Olivia Leigh - 12/09/2022 2:03 PM EDT Received fax from [facility] for cardiac clearance for EGD on 01/04/23. Form and last OV given to nurse. documented in this encounterSDiley Ridge Medical [id number] Telephone encounter Note* Telephone Encounter - Olivia Leigh - 12/09/2022 2:03 PM EDT Received fax from [facility] for cardiac clearance for EGD on 01/04/23. Form and last OV given to nurse. [id number] Miscellaneous Notes* Telephone Encounter - Olivia Leigh - 12/09/2022 2:03 PM EDT Received fax from [facility] for cardiac clearance for EGD on 01/04/23. Form and last OV given to nurse. documented in this [facility]09-13-2023 Discharge summary Author Ami Thayer [facility] [place] October 21, 2022 1:29pm Note Date/Time October 21, 2022 1:29pm [facility] [place] Physical Therapy [facility] [address] [place] [address] / REHABILITATION SERVICES DISCHARGE SUMMARY MR#: [id number] Acct: [id number] Name: PREMA VILLALPANDO Rep #: [id number] : 1940 82 From: Ami Thayer PT, Cert. MDT Referring Dr.: Mita Morton DO Status: REG RCR Insurance: MEDICARE PART A B [facility] Discharge Summary D/C summary: It has been [...] please feel free to call me at [phone]. Thank you for the referral of this patient. Sincerely, Ami Thayer, PT, Cert MDT Balance/Gait/Functional tests Balance/Special Test Scores Oswestry Low Back Score: 5 TUG Test Time Seconds: 11.53 Tug Test: <20 sec.=mostly independent 30 Second Chair Rise Test Seconds: 12 Improvement % Improvement: 98 <Electronically signed by Ami Thayer PT, Cert. MDT> 10/21/22 1329 CC: Mita Morton, ~ ABIGAIL Signed [facility] [place] Work Phone: 1(159) 147-755508-17-2023 Miscellaneous Notes* Result Encounter Note - Cheryl Lopez PA-C - 09/24/2022 9:36 AM EDT Emig[facility], Looks like labs were done for refill request. Liver function is less elevated that before, but please make sure she is following up on this with PCP or GI. Looks like she was admitted in June with this issue. documented in this [facility]08-17-2023 Progress note* Result Encounter Note - Cheryl Lopez PA-C - 09/24/2022 9:36 AM EDT Emig[facility], Looks like labs were done for refill request. Liver function is less elevated that before, but please make sure she is following up on this with PCP or GI. Looks like she was admitted in June with this issue. [facility] Work Phone: 1(210) 411-142508-07-2023 Miscellaneous Notes* Result Encounter Note - Cheryl Lopez PA-C - 09/14/2022 3:15 PM EDT Mrs. Villalpando, Your blood work you had done on September 14 look stable. Please call with any questions or concerns. Thank you, Cheryl Lopez PA-C documented in this [facility]08-07-2023 Progress note* Result Encounter Note - Cheryl Lopez PA-C - 09/14/2022 3:15 PM EDT Mrs. Villalpando, Your blood work you had done on September 14 look stable. Please call with any questions or concerns. Thank you, Cheryl Lopez PA-C [facility] [employer] Phone: 1(146) 992-105607-18-2023 NoteSinus Rhythm -Poor R-wave progression -may be secondary to pulmonary disease consider old anterior infarct. Low voltage with rightward P-axis and rotation -possible pulmonary disease. ABNORMAL [facility] HospitalSaklyh38-07-1594 NoteSinus Rhythm -Poor R-wave progression -may be secondary to pulmonary disease consider old anterior infarct. Low voltage with rightward P-axis and rotation -possible pulmonary disease. ABNORMAL [facility] HospitalAvsvuh25-53-9375 History of Present illness Narrative* Toni Bey MD - 08/25/2022 10:00 AM EDT [facility] [address] [facility] [address] Dept: [phone] Dept Visit type: Established : 1940 Chief [...] TUBAL LIGATION 1989 UPP[facility] Family History Family History Problem Relation Name [...] and Plan: 1. Coronary artery disease involving yering[place] coronary artery of yering[place] heart without angina pectoris 2. Persistent atrial fibrillation (HCC) 3. Mixed hyperlipidemia 1. Coronary artery disease: She is currently stable. She has a history of stenting. She has no symptoms of angina. 2. Hyperlipidemia: On therapy. 3. Progressive dementia. 4. Recurrent anemia documented in this [facility]06-14-2023 Telephone encounter Note* Telephone Encounter - Olivia Leigh - 07/22/2022 12:51 PM EDT Patient now scheduled with JDR on 08/25/22. [id number] Miscellaneous Notes* Telephone Encounter - Olivia Leigh - 07/22/2022 12:51 PM EDT Patient now scheduled with JDR on 08/25/22. * Telephone Encounter - Leslie Samson RN - 07/20/2022 8:26 AM EDT Last OV with JDR on 08/20/21 (next OV 02/20/21 not scheduled) CMP 06/16/22 documented in this [facility]06-12-2023 Telephone encounter Note* Telephone Encounter - Leslie Samson RN - 07/20/2022 8:26 AM EDT Last OV with JDR on 08/20/21 (next OV 02/20/21 not scheduled) CMP 06/16/22 [id number] Note* Care Coordination - Alex Delatorre - 06/16/2022 3:28 PM EDT Discharge med list, MAR and covid transfer information transmitted to [facility] via [employer] per TCC request. 7000 completed in HENS. Facility is aware. [facility] HospitalAhsffj34-60-5487 Note* Care Coordination - Alex Delatorre - 06/16/2022 3:28 PM EDT Discharge med list, MAR and covid transfer information transmitted to [facility] via [employer] per TCC request. 7000 completed in HENS. Facility is aware. [facility] [id number] Miscellaneous Notes* Care Coordination - Alex Delatorre - 06/16/2022 3:28 PM EDT Discharge med list, MAR and covid transfer information transmitted to [facility] via [employer] per TCC request. 7000 completed in HENS. Facility is aware. * Care Coordination - Unknown Case Management - 06/16/2022 3:17 PM EDT Patient Choice Patient Name: PREMA VILLALPANDO Date of : 1940 All Providers Sent Referral Name: [facility] Phone: [phone] Address: [address] [place] [address] * Care Coordination - Vika Thompson RN - 06/16/2022 2:59 PM EDT Task sent to [facility] via [employer] to complete 7000 and send it with dc paperwork and Covid results to [facility] [place] [facility]. . * Care Coordination - MARA Garcia - 06/16/2022 2:12 PM EDT Dc transportation arranged for 5:00 to [facility] in [place]. Spoke with patients daughter via phone to discuss the dc arrangements and the picker packer time. Ambulance transport form completed. * Care Coordination - Alex Delatorre - 06/16/2022 11:02 AM EDT [facility]. Await review and response regarding ability to accept. TCC notified. * Care Coordination - Vika Thompson RN - 06/16/2022 10:54 AM EDT Images from the original note were not included. Care Management Progress Note Secure message from Dr. Morton patient is ready for SNF placement. Daughter, Hossein, called and gave choice of [facility] [place] [facility] in [place]. Task sent to [facility] [employer] [facility] referral to above. Will watch for [...] PM EDT Patient is currently active with [facility]. The patients current certification period will on 07/31/2022. The patient is currently receiving PT/OT/ST services through the agency. [employer] Specialist to continue to follow. Placed [facility] * Care Coordination - Josey Mckeon RN - 06/13/2022 4:28 PM EDT Care Managment Initial Assessment Date: 06/13/2022 Patient Name: Prema Villalpando : 1940 Patient Information Source of Information: Patient, Patient Measurer Machine Name/Contact Information: HOSSEIN CORNELL [phone] DAUGHTER AND DAUGHTER YAZ DAVIS [phone] Cognition/Language: WFL - Within Functional Limits Permission given to speak with patient farm loan representative/caregiver as indicated: Yes Confirmation of Payer with patient/family: Yes Payer Name: MMO : No Confirmation of Primary Care Physician: Confirmed PCP Name: DR. MORTON Seen in last 2 years?: Yes Primary Caregiver: Family If assistance needed, confirmed caregiver ready, willing and able to care for patient at discharge:Yes Confirmed with: [facility] Living Arrangements Current Residence: ([facility]) Number of Floors 1 Number of Entry Steps: 2 Bed/Bath Levels: Both first floor Facility: Facility Name: [facility] Plan to Return: Yes Lives with: Alone Support Systems: Children, Family members, Home care staff, Comments (Other) ([facility]) Activities of Daily Living Ambulation: Independent Bathing/Dressing: Independent Elimination/Continence/Toileting: Independent Feeding: Independent Who Assists with Activities of Daily Living: NA Instrumental Activities of Daily Living Prescription Coverage: Yes Pharmacy Used: [facility] Medication Management: Prescription pick-up Who assists with medication securing and setup?: DAUGHTER SECURES AND SETS UP MEDS Transportation/Shopping: Assistance Provider Transportation/Shopping Assistance Provider Name: [facility] Transportation Mode: Car, Senior/disability transport service Needs Assistance with Transportation at Discharge: No (DAUGHTER) Meal Preparation: Assistance Provider Meal Prep Assistance Provider Name: DAUGHTER Laundry/Cleaning: Assistance Provider Laundry/Cleaning Assistance Provider Name: DAUGHTER Finances/Bill Paying: Assistance Provider Finances/Bill Payer Assistance Provider Name: DAUGHTER Communication: Independent Types of Care Services/Equipment Utilized Care Services: Skilled Home Health Services Care Services Provider Name: [facility] D[facility] Type: NA Durable Medical [...] status from home with anemia. Ad[facility]. Admissions orders are pending. Discharge preparation checklist reviewed with patient and her daughter Hossein. [facility] [place] to her daughter and son in law. Is active with the [facility] M-F [phone]. Her daughter states she has occupational therapy that was seeing her at [facility] and was going to start with ST for swallowing. nurse liaison updated via [facility] and is following. Daughter uncertain if through [facility] or [place]. Daughter assists patient with all household tasks and patient is independent in her adls. Does not anticipate any needs upon discharge and tentative discharge plan is home with resumption of previous services when medically stable. Will likely need pt/ot evals to assist with dc planning needs. .. Josey Mckeon RN documented in this encounterSDiley Ridge Medical [id number] Note* Care Coordination - Unknown Case Management - 06/16/2022 3:17 PM EDT Patient Choice Patient Name: PREMA VILLALPANDO Date of : 1940 All Providers Sent [facility] Phone: [phone] Address: [address] [place] [address] [id number] Note* Care Coordination - Unknown Case Management - 06/16/2022 3:17 PM EDT Patient Choice Patient Name: PREMA VILLALPANDO Date of : 1940 All Providers Sent [facility] Phone: [phone] Address: [address] [place], [place] [address] [facility] [id number] Note* Care Coordination - Vika Thompson RN - 06/16/2022 2:59 PM EDT Task sent to [facility] via [employer] to complete 7000 and send it with dc paperwork and Covid results to [facility] [place] [facility]. . [facility] HospitalLzfnkc85-99-1902 Note* Care Coordination - Vika Thompson RN - 06/16/2022 2:59 PM EDT Task sent to [facility] via [employer] to complete 7000 and send it with dc paperwork and Covid results to [facility] [place] [facility]. . [facility] [id number] Note* Care Coordination - MARA Garcia - 06/16/2022 2:12 PM EDT Dc transportation arranged for 5:00 to [facility] in [place]. Spoke with patients daughter via phone to discuss the dc arrangements and the picker packer time. Ambulance transport form completed. [facility]Fgqeac83-76-9099 Note* Care Coordination - MARA Garcia - 06/16/2022 2:12 PM EDT Dc transportation arranged for 5:00 to [facility] in [place]. Spoke with patients daughter via phone to discuss the dc arrangements and the picker packer time. Ambulance transport form completed. [facility] HospitalDrmtwx27-53-2098 History of Present illness Narrative* ASHLY Castaneda - 06/16/2022 2:08 PM EDT Occupational Therapy Facility/Department: [facility] Occupational Therapy Treatment NAME: Prema Villalpando : [...] recent events, Decreased short term memory, Decreased long term care phlebotomist memory Safety Judgement: Decreased awareness of need [...] 06/16/2022 11:26 AM EDT Physical Therapy Facility/Department: [facility] Physical Therapy Daily Treatment Note NAME: Prema [...] recent events, Decreased short term memory, Decreased half-way memory Safety Judgement: Decreased awareness of need [...] Date - 1-2 d - Location - [facility] - Pending the following - MITA MORTON DO 06/15/22 9:20 AM * Elvie Skeltno - 06/15/2022 8:26 AM EDT Nutrition rescreen completed. Patient assigned a level 1. * Franklin Aviles PT - 06/14/2022 3:11 PM EDT Physical Therapy Facility/Department: [address] Physical Therapy Initial Evaluation NAME: Prema [...] recent events, Decreased short term memory, Decreased half-way memory Safety Judgement: Decreased awareness of need [...] Device: rolling walker Transfer Assistance: Independent Active Sand Screener Operator: No Patient's Sand Screener Operator Info: Per pt report her daughter drives [...] Inpatient Mobility Raw Score: 17 Mobility Inpatient [facility] G-Code Modifier: CK Goals Encounter Problems Encounter [...] 06/14/2022 1:51 PM EDT Occupational Therapy Facility/Department: [address] Occupational Therapy Initial Evaluation NAME: Prema [...] recent events, Decreased short term memory, Decreased long term care phlebotomist memory Safety Judgement: Decreased awareness of need [...] Device: rolling walker Transfer Assistance: Independent Active Sand Screener Operator: No Patient's Sand Screener Operator Info: Per pt report her daughter drives [...] therapist. Radha Bernal OT documented in this [facility]05-09-2023 Note* Care Coordination - Alex Delatorre - 06/16/2022 11:02 AM EDT Referral placed to [facility] per [facility]CC request. Await review and response regarding ability to accept. TCC notified. [facility] HospitalDfgxtw60-30-0240 Note* Care Coordination - Alex Delatorre - 06/16/2022 11:02 AM EDT Referral placed to [facility] per [facility]CC request. Await review and response regarding ability to accept. TCC notified. T [facility] Wgcotv82-43-6508 Note* Care Coordination - Vika Thompson RN - 06/16/2022 10:54 AM EDT Images from the original note were not included. Care Management Progress Note Secure message from Dr. Morton patient is ready for SNF placement. DaughterHossein, called and gave choice of [facility] in [place]. Task sent to [facility] via [facility] referral to above. Will watch for reply. [...] Length of Stay (Days): 3 GMLOS: 2.7 [facility] Uzoooy30-72-5746 Note* Care Coordination - Vika Thompson RN - 06/16/2022 10:54 AM EDT Images from the original note were not included. Care Management Progress Note Secure message from Dr. Morton patient is ready for SNF placement. DaughterHossein, called and gave choice of [facility] in [place]. Task sent to [facility] via [facility] referral to above. Will watch for reply. [...] Length of Stay (Days): 3 GMLOS: 2.7 [facility] HospitalParwti71-37-3548 Nurse Note* Fiordaliza Del Castillo RN - 06/16/2022 6:04 AM EDT This nurse attempted to call both of the patients' daughters at this time to obtain a breakfast order for the patient. Both numbers went straight to voicemail. [facility] HospitalQpzohz50-32-4805 Nurse Note* Fiordaliza Del Castillo RN - [...] and pillowed positioning. ] documented in this [facility]05-09-2023 Nurse Note* Fiordaliza Del Castillo RN - 06/16/2022 5:45 AM EDT This RN and Esme CHUAT performed a complete bed bath with hair washing and skin care at this time. All new linens including gown, body bathed, hair washed, lotion applied, barrier cream applied, incontinence brief, and pillowed positioning. ] [facility] HospitalHstldt13-58-2783 Plan of care note* Care Plan - [...] integrity is maintained or improved Outcome: Progressing [facility] HospitalYrkunp51-11-2227 Note* Care Coordination - Vika Thompson RN [...] Length of Stay (Days): 2 GMLOS: 2.7 [facility] HospitalSevdsa31-42-8554 Note* Care Coordination - Viak Thompson RN - 06/15/2022 1:01 PM EDT [...] Length of Stay (Days): 2 GMLOS: 2.7 [facility] HospitalGemzlo90-79-8347 Plan of care note* Care Plan - [...] to address these barriers include increase mobility. [facility] HospitalEsjdsy07-63-4132 Consult note* Jersey Rollins MD - 06/14/2022 1:43 PM EDTAssociated Order(s): Inpatient consult to Gastroenterology Images from the original note were not included. GI CONSULTATION Patient: Prema Villalpando : 1940 Primary Care Physician: Lu [facility] Inpatient consult to Gastroenterology Consult performed by: [...] 1989 UPPER GASTROINTESTINAL ENDOSCOPY 08/08/2018 Dr [facility] FAMILY HISTORY: Family History Problem Relation Name [...] swallow.. 02/27/22 02/27/23 Gin Finn APRN - CHANGEOVER OPERATOR Lancets (OneTouch Delica) lancets 30G TEST SUGAR [...] am labs Continue to monitor Hgb closely [facility] HospitalBkjfkr86-46-7534 Consult note* Jersey Rollins MD - 06/14/2022 1:43 PM EDTAssociated Order(s): Inpatient consult to Gastroenterology Images from the original note were not included. GI CONSULTATION Patient: Perma Villalpando : 1940 Primary Care Physician: Lu [facility] Inpatient consult to Gastroenterology Consult performed by: [...] US ordered. Recent EGD 02/[address] Bryd for dysphagia with dilation of esophageal stricture [...] 1989 UPPER GASTROINTESTINAL ENDOSCOPY 08/08/2018 Dr [facility] FAMILY HISTORY: Family History Problem Relation Name [...] Do not swallow.. 02/27/22 02/27/23 Gin Finn, BRASS MOLDER - CHANGEOVER OPERATOR Lancets (OneTouch Delica) lancets 30G TEST SUGAR [...] 06/13/2022 [facility] Name[facility] PRE[facility] 1940 [id number] Date/Time: 06/13/2022 15:08 Procedure: CT HEAD WO [...] 06/13/2022 Patient Name: PREMA VILLALPANDO : 1940 [facility]#: [id number] Date/Time: 06/13/2022 15:21 Procedure: XR PELVIS 1-2 [...] to monitor Hgb closely documented in this [facility]05-07-2023 History and physical note* Mita Morton, [...] 1989 UPPER GASTROINTESTINAL ENDOSCOPY 08/08/2018 Dr [facility] Medications Prior to Admission: Medications Prior to [...] infarction) (HCC) Leukocytosis Coronary artery disease involving [place] coronary artery of [place] heart without angina pectoris Esophageal obstruction Dysphagia Dementia (HCC) Anemia AMS Elevated lfts Anemia DM 2 HTN HPL Plan Admit to med tele Consult GI Pt/ot eval Monitor labs MITA MORTON DO 06/14/22 10:15 AM [facility] HospitalPhjrbe38-55-0575 History and physical note* Mita Morton DO [...] 1989 UPPER GASTROINTESTINAL ENDOSCOPY 08/08/2018 Dr [facility] Medications Prior to Admission: Medications Prior to [...] Do not swallow.. 12 g 1 Lancets (One97 Communications[employer] Delica) lancets 30G TEST SUGAR ONCE A [...] capsule Take 1 capsule by mouth daily. [employer]ize Ultra test strip TEST SUGAR ONCE A [...] infarction) (HCC) Leukocytosis Coronary artery disease involving [place] coronary artery of [place] heart without angina pectoris Esophageal obstruction Dysphagia Dementia (HCC) Anemia AMS Elevated lfts Anemia DM 2 HTN HPL Plan Admit to med tele Consult GI Pt/ot eval Monitor labs MITA MORTON DO 06/14/22 10:15 AM documented in this [place] [address]-06-2023 Hospital Discharge instructions* Discharge Instr - Other Orders* Estelle Mitchell LPN - 06/13/2022 5:59 PM EDT Discharging to Facility/ Agency Name: [facility] Address: [address] [place] [address] * Discharge Instr - NAOMIE* Nicole Boles [...] LIGATION 1989 UPP[facility]AL END[facility] History: Immunization History Administered Date(s) Administered [...] infarction) (HCC) Leukocytosis Coronary artery disease involving [place] coronary artery of [place] heart without angina pectoris Isolation/Infection: No active [...] assistance Toileting Minimal assistance Feeding Minimal assistance Diaper Folder Minimal assistance Med Delivery yes Wound Care [...] Score: @READMISSIONRISKDETAILS@ Discharging to Facility/ Agency Name: [facility] Address: [address] [place], [place] [id number] Fax: Dialysis Facility (if applicable) Name: Address: Dialysis Schedule: Phone: Fax: Home Paraprofessional/Grain Wafer Machine Operator signature: ICIAN SECTION Prognosis: fair Condition at Discharge: stable Rehab Potential (if transferring to Rehab): fair Recommended Labs or Other Treatments After Discharge: none Physician Certification: I certify the above information and transfer of Prema Villalpando is necessary for the continuing treatment of the diagnosis listed and that she requires fci facility for less than 30 days. Update Admission H&P: No change in H&P PHYSICIAN SIGNATURE: documented in this [facility]05-06-2023 Note* Home Care - Estelle Mitchell LPN - 06/13/2022 5:56 PM EDT Patient is currently active with [facility]. The patients current certification period will on 07/31/2022. The patient is currently receiving PT/OT/ST services through the agency. Methods Specialist to continue to follow. Placed in care port and sparc [employer] Dnsdlu35-01-0751 Note* Home Care - Estelle Mitchell LPN - 06/13/2022 5:56 PM EDT Patient is currently active with [facility]. The patients current certification period will on 07/31/2022. The patient is currently receiving PT/OT/ST services through the agency. Methods Specialist to continue to follow. Placed in care port and sparc [facility] Shxcwd15-54-5426 Note* Care Coordination - Josey Mckeon RN - 06/13/2022 4:28 PM EDT Care Managment Initial Assessment Date: 06/13/2022 Patient Name: Prema Villalpando : 1940 Patient Information Source of Information: Patient, Patient Measurer Machine Name/Contact Information: HOSSEIN CORNELL [phone] DAUGHTER AND DAUGHTER YAZ DAVIS [phone] Cognition/Language: WFL - Within Functional Limits Permission given to speak with patient farm loan representative/caregiver as indicated: Yes Confirmation of Payer with patient/family: Yes Payer Name: O [place]: No Confirmation of Primary Care Physician: Confirmed PCP Name: DR. MORTON Seen in last 2 years?: Yes Primary Caregiver: Family If assistance needed, confirmed caregiver ready, willing and able to care for patient at discharge:Yes Confirmed with: AKI CATALAN Living Arrangements Current Residence: ([facility]) Number of Floors 1 Number of Entry Steps: 2 Bed/Bath Levels: Both first floor Facility: Facility Name: NA Plan to Return: Yes Lives with: Alone Support Systems: Children, Family members, Home care staff, Comments (Other) ([facility]) Activities of Daily Living Ambulation: Independent Bathing/Dressing: Independent Elimination/Continence/Toileting: Independent Feeding: Independent Who Assists with Activities of Daily Living: NA Instrumental Activities of Daily Living Prescription Coverage: Yes Pharmacy Used: [facility] Medication Management: Prescription pick-up Who assists with medication securing and setup?: DAUGHTER SECURES AND SETS UP MEDS Transportation/Shopping: Assistance Provider Transportation/Shopping Assistance Provider Name: DAUGHTER OR [facility] Transportation Mode: Car, Senior/disability transport service Needs Assistance with Transportation at Discharge: No (DAUGHTER) Meal Preparation: Assistance Provider Meal Prep Assistance Provider Name: DAUGHTER Laundry/Cleaning: Assistance Provider Laundry/Cleaning Assistance Provider Name: DAUGHTER Finances/Bill Paying: Assistance Provider Finances/Bill Payer Assistance Provider Name: DAUGHTER Communication: Independent Types of Care Services/Equipment Utilized Care Services: Skilled Home Health Services Care Services Provider Name: UNSURE IF THROUGH [employer] OR [facility] Dialysis Type: NA Durable Medical Equipment: Walker, [...] status from home with anemia. Admitted to [facility]. Admissions orders are pending. Discharge preparation checklist reviewed with patient and her daughter Hossein. Patient lives [place] door to her daughter and son in law. Is active with the [facility] M-F 730-330pm. Her daughter states she has occupational therapy that was seeing her at [facility] and was going to start with ST for swallowing. nurse liaison updated via [facility] and is following. Daughter uncertain if through [employer] or [employer]. Daughter assists patient with all household tasks and patient is independent in her adls. Does not anticipate any needs upon discharge and tentative discharge plan is home with resumption of previous services when medically stable. Will likely need pt/ot evals to assist with dc planning needs. .. Josey Mckeon RN [facility]Uflxhz55-84-9470 Note* Care Coordination - Josey Mckeon RN - 06/13/2022 4:28 PM EDT Care Managment Initial Assessment Date: 06/13/2022 Patient Name: Prema Villalpando : 1940 Patient Information Source of Information: Patient, Patient Measurer Machine Name/Contact Information: HOSSEIN CORNELL [phone] DAUGHTER AND DAUGHTER YAZ DAVIS [phone] Cognition/Language: WFL - Within Functional Limits Permission given to speak with patient farm loan representative/caregiver as indicated: Yes Confirmation of Payer with patient/family: Yes Payer Name: MMO [place]: No Confirmation of Primary Care Physician: Confirmed PCP Name: DR. MORTON Seen in last 2 years?: Yes Primary Caregiver: Family If assistance needed, confirmed caregiver ready, willing and able to care for patient at discharge:Yes Confirmed with: AKI CATALAN Living Arrangements Current Residence: ([facility]) Number of Floors 1 Number of Entry Steps: 2 Bed/Bath Levels: Both first floor Facility: Facility Name: NA Plan to Return: Yes Lives with: Alone Support Systems: Children, Family members, Home care staff, Comments (Other) ([facility]) Activities of Daily Living Ambulation: Independent Bathing/Dressing: Independent Elimination/Continence/Toileting: Independent Feeding: Independent Who Assists with Activities of Daily Living: NA Instrumental Activities of Daily Living Prescription Coverage: Yes Pharmacy Used: [facility] Medication Management: Prescription pick-up Who assists with medication securing and setup?: DAUGHTER SECURES AND SETS UP MEDS Transportation/Shopping: Assistance Provider Transportation/Shopping Assistance Provider Name: AKI TOBIAS [facility] Transportation Mode: Car, Senior/disability transport service [...] status from home with anemia. Admitted to [facility]. Admissions orders are pending. Discharge preparation checklist reviewed with patient and her daughter Hossein. [place] [facility] [place] [place] her daughter and son in law. Is active with the [employer] M-F 730-330pm. Her daughter states she has occupational therapy that was seeing her at [facility] and was going to start with ST for swallowing. [facility] is [facility]. Daughter uncertain if through [employer] or [place]. Daughter assists patient with all household tasks and patient is independent in her adls. Does not anticipate any needs upon discharge and tentative discharge plan is home with resumption of previous services when medically stable. Will likely need pt/ot evals to assist with dc planning needs. .. Josey Mckeon RN [facility] HospitalQenmpa46-61-3392 Emergency department Note* Natalie Scott RN - 06/13/2022 3:13 PM EDT This RN clarified magnesium order with eve Moreno to give per provider. Natalie Scott RN 06/13/22 1514 [facility] HospitalWkjdmy22-04-0965 Emergency department Note* Natalie Scott RN - [...] CAPSULE Take 1 capsule by mouth daily. Xockets ULTRA TEST STRIP TEST SUGAR ONCE A [...] Pt accompanied by daughter documented in this [facility]05-06-2023 Emergency department Note* Natalie Scott RN - 06/13/2022 3:03 PM EDT Patient placed in wheelchair to use restroom, pt ambulated well independently from wheelchair to bathroom Natalie Scott RN 06/13/22 1508 [facility] HospitalOvuoqm67-66-0411 Emergency department Triage note* Ashanti Michelle RN - 06/13/2022 12:04 PM EDT Pt presents from outpatient ECHO due to bilateral leg edema. +2 edema noted. Pt poor historian. Pt accompanied by daughter [facility] HospitalYbmyjj53-18-5436 Physician Emergency department Note* Eric Cintron MD [...] MD (electronically signed) Eric Cintron MD 06/13/221542 [facility] HospitalUiiavt32-89-[address] Younger [facility] June 01, 2022 11:43pm Note Date/Time June 01, 2022 11: 15pm [facility] Medical Records Department [address] [place] [address] Emergency Department Summary 06/01/22 MR#: [id number] Acct: [id number] Name: PREMA VILLALPANDO Rep #:[id number] : 1940 81 From: Xavier Younger MD PCP: Mita Morton DO Status:REG ER Location: ED [facility] History of Present Illness Chief Complaint: [facility] History (Updated 06/01/22 @ 23:[address] Xavier Younger MD) Anemia Atherosclerotic heart disease of [place] coronary artery without angina pectoris Dementia Diabetes [...] (Auto) 70.1 H Lymph % (Auto) 22.3 [place] % (Auto) 5.5 Eos % (Auto) 1.1 [...] Color Urine Clarity Urine pH Ur Specific [place] Urine Protein Urine Glucose (UA) Urine Ketones Urine Occult Blood Urine Nitrite Urine Bilirubin Urine Urobilinogen Ur Leukocyte Esterase Urine RBC Urine WBC Ur Squamous Epith Cells Urine Bacteria Urine Mucus 06/01/22 21:40 WBC RBC Hgb Hct MCV MCH MCHC RDW Std Deviation RDW Coeff of Galen Plt Count MPV Immature Gran % (Auto) Neut % (Auto) Lymph % (Auto) [place] % (Auto) Eos % (Auto) Baso % (Auto) Absolute Neuts (auto) Absolute Lymphs (auto) Nucleated RBC % Sodium Potassium Chloride Carbon Dioxide Anion Gap BUN Creatinine Est GFR (MDRD) Af Amer Est GFR (MDRD) Non-Af BUN/Creatinine Ratio Glucose Calcium Total Bilirubin Direct Bilirubin AST ALT Alkaline Phosphatase Total Protein Albumin Globulin Urine Color Yellow Urine Clarity Sl. Cloudy Urine pH 5.0 Ur Specific [place] 1.015 Urine Protein 30 H Urine Glucose [...] your Primary Care Provider. Call [facility] ([phone]) or report to the closest Emergency Room. Call 911 if necessary. 06/01/228 <Electronically signed by Xavier Younger MD> Cosigner Signature (if applicable): CC: Mita Morton DO ~ Signed [facility] Work Phone: 1(643) 366-295104-05-[address] Pack [facility] May 13, 2022 3:47pm Note Date/Time May 13, 2022 3:46 pm [facility] Medical Records Department [address] [place] [address] Instructions for Home/Discharge Instructions 05/13/22 1545 MR#: [id number] Acct: [id number] Name: PREMA VILLALPANDO Rep #:[id number] : 1940 81 From: Jovi galvez MD [...] MD CC: Mita Morton DO ~ Signed [facility] Work Phone: [phone] 136-881404-05-[address] Pack [facility] May 13, 2022 2:10pm Note Date/Time May 13, 2022 2:10 pm [facility] Medical Records Department [address] [place] [address] Discharge Summary 05/13/22 1406 MR#: [id number] Acct: [id number] Name: PREMA VILLALPANDO Rep #:[id number] : 1940 81 From: Jovi galvez MD PCP: Mita Morton DO Status:ADM WARD Location: [place] [address] Providers Date of Admission: 05/12/22 Primary Care Physician: Dr. Mita Morton DO Consultations 05/12/22 12:48 Consult: Gastroenterology Routine Consulting Provider: [facility] Reason for Consult: Dysphagia EMERGENT Consult: [...] had another 1 at a hospital in [place] in January 2022.? She has been having [...] % (Auto) 61.7, Lymph % (Auto) 21.4, [place] % (Auto) 11.8 H, Eos % (Auto) [...] Shelter Facility Charges/Coding Visit Charges Inpatient E&M: 00914 Disch Hosp >30min 05/13/22 1410 <Electronically signed by Jovi Pack MD> Cosigner Signature (if applicable): CC: Dr. Jovi Pack MD; Mita Morton DO~ Signed [facility] Work Phone: [phone]) 940-315404-05-[address] Pack [facility] May 13, 2022 1:53pm Note Date/Time May 13, 2022 1:51 pm [facility] Medical Records Department [address] [place] [address] Transfer to [facility] MR#: [id number] Acct: [id number] Name: PREMA VILLALPANDO Rep #:[id number] : 1940 81 From: Jovi galvez MD PCP: Mita Morton DO Status:ADM WARD Certification of patient admission REQUIRED AT TIME OF ADMISSION. I CERTIFY THAT POST-HOSPITAL ECF SERVICES ARE REQUIRED TO BE GIVEN ON AN IN-PATIENT BASIS BECAUSE OF THE ABOVE NAMED PATIENT'S NEED FOR SKILLED NURSING CARE ON A CONTINUING BASIS FOR THE CONDITION(S) FOR WHICH HE/SHE WAS RECEIVING IN-PATIENT HOSPITAL SERVICES PRIOR TO HIS/HER TRANSFER TO THE [facility]. 05/13/22 1353<Electronically signed by Jovi Pack MD> [...] Recommendations/Changes: Continue Cardiac diet with texture/consistency per LOCAL COMPANY INTERMODAL TRUCK DRIVER/MD. Continue 120mL EPHP TID with medpass to [...] (if applicable): CC: Mita Morton DO ~ [facility] Work Phone: [phone]) 391-964304-05-[address] Pack [facility] May 13, 2022 9:17am Note Date/Time May 13, 2022 9:13 am [facility] Medical Records Department [address] [place] [address] Progress Note - Hospitalist 05/13/22909 MR#: [id number] Acct: [id number] Name: PREMA VILLALPANDO Rep #:[id number] : 1940 81 From: Jovi galvez MD PCP: Mita Morton DO Status:ADM WARD Location: [place] [address] Subjective Subjective Doing well, no issues overnight [...] (Auto) 70.4 H, Lymph % (Auto) 17.0 L,[place] % (Auto) 8.8, Eos % (Auto) 2.9, [...] % (Auto) 61.7, Lymph % (Auto) 21.4, [place] % (Auto) 11.8 H, Eos % (Auto) [...] DVT: SCDs Charges/Coding Visit Charges Inpatient E&M: 84948 Subs Hosp L2 05/13/22 0917 <Electronically signed by Jovi Pack MD> Cosigner Signature (if applicable): CC: ~ Signed [facility] Work Phone: [phone]) 514-968804-05-2023 Procedure [facility] 05-13-2022 Procedure [facility]04-04-2023 Consult note Author Roque Herrera [facility] May 12, 2022 6:47pm Note Date/Time May 12, 2022 6:45 pm [facility] Medical Records Department [address] [place] [address] Consultation - GI 05/12/22 1844 MR#: [id number] Acct: [id number] Name: PREMA VILLALPANDO Rep #:[id number] : 1940 81 From: Roque Herrera DO PCP: Mita Morton DO Status:ADM WARD Location: [place] [address] HPI Consult Data Date of Consult: 05/12/22 [...] swallow liquids.? Her last dilatation was in [place]. ?Imaging demonstrates a large hiatal hernia. [facility]LY [facility], [facility] Medical History (Updated 05/12/22 @ 18:[address] Roque Herrera DO) Anemia Atherosclerotic heart disease of [place] coronary artery without angina pectoris Dementia Diabetes [...] (Auto) 70.4 H, Lymph % (Auto) 17.0 L,[place] % (Auto) 8.8, Eos % (Auto) 2.9, [...] of 3. Charges/Coding Visit Charges Inpatient E&M: 04976 Init Hosp L2 05/12/22 1847 <Electronically signed by Roque Herrera DO> Cosigner Signature (if applicable): CC: Mita Morton DO~ Signed [facility] Work Phone: 1(834) 536-907304-04-[address] Benitez [facility] May 12, 2022 4:36pm Note Date/Time May 12, 2022 10:0 0am [facility] Medical Records Department [address] [place] [address] Emergency Department Summary 05/12/22 MR#: [id number] Acct: [id number] Name: PREMA VILLALPANDO Rep #:[id number] : 1940 81 From: Zonia Benitez DO PCP: Mita Morton DO Status:ADM WARD Location: [place] [address] HPI History of Present Illness Chief Complaint: [...] swallow liquids. Her last dilatation was in [place]. [facility] Medical History (Updated 05/12/22 @ 11:[address] Zonia Benitez, ) Anemia Atherosclerotic heart disease of [place] coronary artery without angina pectoris Dyslipidemia Gallstone [...] swallow without difficulty. I discussed case with doctor of pharmacy on-call Dr. Herrera. He felt admitting the [...] 70.4 H Lymph % (Auto) 17.0 L [place] % (Auto) 8.8 Eos % (Auto) 2.9 [...] Provider] - Disposition Disposition: Acute Care Hospital [facility] What to do if you have Problems For any increased pain, shortness of breath, bleeding, nausea or vomiting, chestpain, or any unexpected problems, contact your Primary Care Provider. Call [facility] ([phone]) or report to the closest Emergency Room. Call 911 if necessary. 05/12/22 1636 <Electronically signed by Zonia Benitez DO> Cosigner Signature (if applicable): CC: Mita Morton DO ~ Signed [facility] Work Phone: 1(558) 632-927504-04-2023 History and physical note Author Dr. Pack [facility] May 12, 2022 4:06pm Note Date/Time May 12, 2022 11:2 1am [facility] Medical Records Department [address] [place] [address] H&P Exam - Hospitalist 05/12/22 1115 MR#: [id number] Acct: [id number] Name: PREMA VILLALPANDO Rep #:[id number] : 1940 81 From: Jovi galvez MD PCP: Mita Morton DO Status:ADM WARD Location: [facility] HPI - General General Date of Admission: 05/12/22 HPI Narrative PREMA VILLALPANDO, is a 81 F who presents to the hospital with difficulty swallowing. This has been an ongoing issue she had a previous esophageal dilatation years ago and then had another 1 at a hospital in [place] in January 2022. She has been having [...] Lyn Minor) Anemia Atherosclerotic heart disease of [place] coronary artery without angina pectoris Dementia Diabetes [...] (Auto) 70.4 H, Lymph % (Auto) 17.0 L,[place] % (Auto) 8.8, Eos % (Auto) 2.9, [...] medications DVT: SCDs 75 minutes was spent [id number], as well as chart review and documentation anddiscussing the case with colleagues Charges/Coding Visit Charges Inpatient E&M: 42218 Init Hosp L3 05/12/22 1606 <Electronically signed by Jovi Pack MD> Cosigner Signature (if applicable): CC: Dr. Jovi Pack MD; Mita Morton DO~ Signed [facility] Work Phone: [phone]) 430-188101-26-2023 Telephone encounter Note* Telephone Encounter - KALYN Fulton CNP - 03/05/2022 11:40 AM EST Spoke to daughter Hossein and relayed the message. She will picker packer the medication today. [place] [id number] Miscellaneous Notes* Telephone Encounter - KALYN Fulton CNP - 03/05/2022 11:40 AM EST Spoke to daughter Hossein and relayed the message. She will picker packer the medication today. * Telephone Encounter - KALYN Fulton CNP - 03/05/2022 11:32 AM EST SADI I called Donald (pharmacist) at [facility] [address] [place] [address]#[phone]. The medication (budesonide slurry) is ready for patient to picker packer. It will be $40 per month. She [...] verified with verbal order by provider into [facility] [address] #[phone]. Pharmacist stated compoundingpharmacist was not in today, [...] Please call [facility] (surescripts ID: [facility] retail- NOT [facility]) [phone] to request budesonide slurry d/t high cost [...] that Flovent is almost$400 and did not picker packer. Is there an alternative rx that can [...] daughter and got her scheduled for a COMPUTER ANALYST SUPERVISOR appointment on 03/13/22 at 2:40pm with Huma [...] my schedule to discuss. documented in this encounterSDiley Ridge Medical CenterFrbijb27-75-0706 Telephone encounter Note* Telephone Encounter - KALYN Fulton CNP - 03/05/2022 11:32 AM EST SADI I called Donald (pharmacist) at [facility] [address] [place] [address]#[phone]. The medication (budesonide slurry) is ready for patient to picker packer. It will be $40 per month. She [...] Yaz calls back and has any questions. [facility] [id number] Telephone encounter Note* Telephone Encounter - Pau [...] covering medications. Please advise and Thank you [facility] HospitalErxyti53-87-8273 Miscellaneous Notes* Telephone Encounter - Pau Bar [...] verified with verbal order by provider into [facility] [address] PH#[phone]. Pharmacist stated compoundingpharmacist was not in today, [...] Please call [facility] (surescripts ID: [facility] retail- NOT [facility]) [phone] to request budesonide slurry d/t high cost [...] that Flovent is almost$400 and did not picker packer. Is there an alternative rx that can [...] daughter and got her scheduled for a COMPUTER ANALYST SUPERVISOR appointment on 03/13/22 at 2:40pm with Huma [...] my schedule to discuss. documented in this encounterSDiley Ridge Medical CenterCppwjr52-05-9054 Telephone encounter Note* Telephone Encounter - KALYN Fulton CNP - 03/04/2022 12:56 PM EST Please let me know once you talk to the patient's daughter so she is confident on how the patient it to take medication. Thank you! [facility] HospitalHpznue11-88-5613 Telephone encounter Note* Telephone Encounter - Lupis Connors RN - 03/04/2022 11:55 AM EST Called in rx as written and verified with verbal order by provider into [facility] [address] PH#[phone]. Pharmacist stated compoundingpharmacist was not in today, and will return tomorrow. Pharmacist verified rx, pt information, andstated would return call tomorrow if any issues arise with filling script. Rx admin counseling alsorequested by pharmacist when pt picks up rx. Unable to schedule repeat EGD at this time due to schedule unavailable. [facility] [id number] Telephone encounter Note* Telephone Encounter - KALYN Fulton CNP - 03/04/2022 7:35 AM EST Please call [facility] (surescripts ID: [facility] retail- [facility]) [phone] to request budesonide slurry d/t high cost [...] budesonide suspension. Will need repeat EGD after. [facility] [id number] Telephone encounter Note* Telephone Encounter - Lupis Connors RN - 03/03/2022 12:55 PM EST Spoke with pt's daughter, Hossein in regards to rx instructions. Hossein stated that Flovent is almost$400 and did not picker packer. Is there an alternative rx that can be prescribed for this pt? [facility] [id number] Miscellaneous Notes* Telephone Encounter - Lupis Connors RN - 03/03/2022 12:55 PM EST Spoke with pt's daughter, Hossein in regards to rx instructions. Hossein stated that Flovent is almost$400 and did not picker packer. Is there an alternative rx that can [...] daughter and got her scheduled for a COMPUTER ANALYST SUPERVISOR appointment on 03/13/22 at 2:40pm with Huma [...] my schedule to discuss. documented in this encounterSDiley Ridge Medical CenterOqcvqj13-53-8617 Telephone encounter Note* Telephone Encounter - Keisha Weiss - 03/02/2022 1:05 PM EST Called pt and left a VM requesting a callback to go over providers recommendations. Callback numberprovided. [facility] HospitalVimtmv16-60-0981 Miscellaneous Notes* Telephone Encounter - Keisha Weiss [...] daughter and got her scheduled for a COMPUTER ANALYST SUPERVISOR appointment on 03/13/22 at 2:40pm with Huma [...] my schedule to discuss. documented in this encounterSDiley Ridge Medical CenterMbvldz32-77-4204 Telephone encounter Note* Telephone Encounter - KALYN Fulton CNP - 03/02/2022 10:20 AM EST Did anyone speak with her about the recommendations? [facility] HospitalPujyuy22-20-2011 Telephone encounter Note* Telephone Encounter - Keisha Weiss - 03/02/2022 8:22 AM EST Called pt and spoke to her daughter and got her scheduled for a COMPUTER ANALYST SUPERVISOR appointment on 03/13/22 at 2:40pm with Huma Meyers. [facility] HospitalEewslm72-11-5602 Telephone encounter Note* Telephone Encounter - Lupis Connors RN - 02/27/2022 1:49 PM EST Attempted contact with pt in regards to providers' recommendations. No answer. VM left. [facility] HospitalWljibw97-34-2634 Telephone encounter Note* Telephone Encounter - KALYN [...] new patient on my schedule to discuss. [facility] HospitalMmvlvg73-20-9088 Note* Op Note - Lalitha Powell MD - 02/23/2022 7:43 AM EST [facility]: Prema Villal[facility] Procedure Date: 02/23/2022 [...] by the physician, the nurse and the septic pump truck driver in the pre-procedure area in the procedure [...] loss: None. Procedure Code(s): --- Professional --- 28730, Esophagogastroduodenoscopy, flexible, transoral; with transendoscopic balloon dilation of esophagus (less than 30 mm diameter) 55768, 59, Esophagogastroduodenoscopy, flexible, transoral; with biopsy, single or multiple --- Technical --- 30632, Esophagogastroduodenoscopy, flexible, transoral; with transendoscopic balloon dilation of esophagus (less than 30 mm diameter) 79933, 59, Esophagogastroduodenoscopy, flexible, transoral; with biopsy, single or multiple Diagnosis Code(s): --- Professional --- K22.2, Esophageal obstruction K44.9, Diaphragmatic hernia without obstruction or gangrene R13.10, Dysphagia, unspecified --- Technical --- K22.2, Esophageal obstruction K44.9, Diaphragmatic hernia without obstruction or gangrene R13.10, Dysphagia, unspecified CPT copyright 2020 [employer]. All rights reserved. The codes documented in this report are preliminary and upon hotel and dining room cashier review may be revised to meet current compliance requirements. Attending Participation: I personally performed the entire procedure. LALITHA Powell MD 02/23/2022 8:09:15 AM This report has been signed electronically. Number of Addenda: 0 Note Initiated On: 02/23/2022 7:43 AM [facility] HospitalPdiayg33-55-4368 Note* Op Note - Lalitha Powell MD - 02/23/2022 7:43 AM EST [facility] Patient Name: Prema Villalpando Procedure Date: 02/23/2022 [...] by the physician, the nurse and the septic pump truck driver in the pre-procedure area in the procedure [...] loss: None. Procedure Code(s): --- Professional --- 87967, Esophagogastroduodenoscopy, flexible, transoral; with transendoscopic balloon dilation of esophagus (less than 30 mm diameter) 25676, 59, Esophagogastroduodenoscopy, flexible, transoral; with biopsy, single or multiple --- Technical --- 10180, Esophagogastroduodenoscopy, flexible, transoral; with transendoscopic balloon dilation of esophagus (less than 30 mm diameter) 71663, 59, Esophagogastroduodenoscopy, flexible, transoral; with biopsy, single or multiple Diagnosis Code(s): --- Professional --- K22.2, Esophageal obstruction K44.9, Diaphragmatic hernia without obstruction or gangrene R13.10, Dysphagia, unspecified --- Technical --- K22.2, Esophageal obstruction K44.9, Diaphragmatic hernia without obstruction or gangrene R13.10, Dysphagia, unspecified CPT copyright 202 [employer]. All rights reserved. The codes documented in this report are preliminary and upon hotel and dining room cashier review may be revised to meet current compliance requirements. Attending Participation: I personally performed the entire procedure. LALITHA Powell MD 02/23/2022 8:09:15 AM This report has been signed electronically. Number of Addenda: 0 Note Initiated On: 02/23/2022 7:43 AM [facility] HospitalNdseav67-39-7825 Miscellaneous Notes* Op Note - Lalitha Powell MD - 02/23/2022 7:43 AM EST [facility] Patient Name: Prema Villalpando Procedure Date: 02/23/2022 [...] by the physician, the nurse and the septic pump truck driver in the pre-procedure area in the procedure [...] loss: None. Procedure Code(s): --- Professional --- 13719, Esophagogastroduodenoscopy, flexible, transoral; with transendoscopic balloon dilation of esophagus (less than 30 mm diameter) 99192, 59, Esophagogastroduodenoscopy, flexible, transoral; with biopsy, single or multiple --- Technical --- 44665, Esophagogastroduodenoscopy, flexible, transoral; with transendoscopic balloon dilation of esophagus (less than 30 mm diameter) 69728, 59, Esophagogastroduodenoscopy, flexible, transoral; with biopsy, single or multiple Diagnosis Code(s): --- Professional --- K22.2, Esophageal obstruction K44.9, Diaphragmatic hernia without obstruction or gangrene R13.10, Dysphagia, unspecified --- Technical --- K22.2, Esophageal obstruction K44.9, Diaphragmatic hernia without obstruction or gangrene R13.10, Dysphagia, unspecified CPT copyright 2020 [employer]. All rights reserved. The codes documented in this report are preliminary and upon hotel and dining room cashier review may be revised to meet current compliance requirements. Attending Participation: I personally performed the entire procedure. LALITHA Powell MD 02/23/2022 8:09:15 AM This report has been signed electronically. Number of Addenda: 0 Note Initiated On: 02/23/2022 7:43 AM documented in this [facility]01-16-2023 History and physical note* Lalitha Powell [...] capsule Take 1 capsule by mouth daily. [employer] Ultra test strip TEST SUGAR ONCE A [...] proceed with planned procedure. Andre CHRISTIANSEN Gastroenterology [employer] Work Phone: 1(855) 555-858201-16-2023 History and physical note* Lalitha Powell MD [...] procedure. Andre CHRISTIANSEN Gastroenterology documented in this [facility]04-27-2021 Hospital Discharge instructions* Instructions* Regina Gamboa RN - 06/04/2020 * Attachments The following attachments cannot be sent through Care Everywhere. * Thyroid: Biopsy: Fine-Needle: Post-op ([place]izen [place]) documented in this [facility] Work Phone: 1(162) 405-783501-11-2020 Hospital course Narrative* Tj Muniz MD - [...] DISCHARGE MEDICATIONS: Prema Villalpando Home Medication Instructions JENNIFER:[id number] Printed on:02/18/19 5710 Medication Information aspirin 81 MG chewable tablet [...] Complexity: follow up within 7-14 calendar days (77580) [] Severe Complexity: follow up within 7 calendar days (96200) FOLLOW UP TESTING, PENDING RESULTS OR REFERRALS AT TRANSITIONAL CARE VISIT: [] Yes [] No PENDING STUDIES: No DISPOSITION: Home FACILITY/HOME CARE AGENCY NAME: Follow up with Follow-up With Details Why Contact Info Mita Morton, In [address] [facility] [id number] Sahil Anderson MD In 2 weeks [address] [facility] [place] [phone] Lisa Smiley MD In 2 weeks [address] [facility] [address] [place] [phone] INSTRUCTIONS TO MA/SW: Please call patient on [...] MD 02/18/2019, 12:17 PM documented in this [facility] Work Phone: 1(783) 971-443601-11-2020 History of Present illness Narrative* Sharmila Lr [...] Date 02/18/19 0000 - 02/18/19 2359 Shift 1564-8081 7143-6653 4758-6660 24 Hour Total INTAKE Shift Total(mL/kg) OUTPUT [...] 02/17/2019 3:22 PM EST Physical Therapy Facility/Department: [facility] MED SURG PT REEVALUATION NAME: Prema Villalpando [...] EST Hospitalist Progress Note 02/17/2019 9:03 AM [phone]: Please page me for patient care issues. [phone]: Please page [facility] night Hospitalist for any issues. Subjective: Admit Date: 02/11/2019 PCP: MITA MORTON DO Room#: [id number]/[id number] Interval History: Patient seen and examined No [...] of Hospitalist Medicine Inpatient Medical Services PAGER: [phone] * Sharmila Lr MD - 02/17/2019 6:41 [...] INTAKE/OUTPUT: Date 02/17/19 - 02/17/19 2359 Shift 6884-6187 9639-5336 8832-2012 24 Hour Total INTAKE Shift Total(mL/kg) OUTPUT [...] Anderson MD - 02/17/2019 4:58 PM EST [facility] Medical [facility] - Surgery [facility] Physicians Surgery Patient Name: Prema Villalpando [...] High Nutrient Needs: Estimated Daily Total Kcal: 2509-2649 (25-28) Estimated Daily Protein (g): 51-61 (1.0-1.2) [...] 6 months: (08/13/18) 139# --> (02/12/19) 113# [place] Body Wt: 100 lb (45.4 kg), BMI [...] Weight, Monitor Bowel Function Contact Number: pager [phone] * JosrCarina, OT - 02/16/2019 11:29 AM [...] Prognosis: Good Decision Making: Low Complexity Exam: [facility] OT Education: OT Role;Plan of Care;ADL Adaptive [...] Ambulation Assistance: Independent Transfer Assistance: Independent Active Sand Screener Operator: Yes Mode of Transportation: Car Occupation: Retired [...] Home Management Training, Cognitive/Perceptual Training OutComes Score AM-[facility] Daily Activity Inpatient How much help for putting on and taking off regular lower body clothing?: A Little How much help for Bathing?: A Little How much help for Toileting?: A Little How much help for putting on and taking off regular upper body clothing?: None How much help for taking care of personal grooming?: None How much help for eating meals?: None [facility] Inpatient Daily Activity Raw Score: 21 -[facility] Inpatient ADL T-Scale Score : 44.27 ADL [...] Plan of Care supervision is transferred to [facility] Occupational Therapist. Carina Ovalles OTR/L * Debbi Walters RN - 02/16/2019 11:18 AM EST Lipase high at 1,101. Dr. Muniz paged to notify. Lila Funk PA-C also notified per Dr. Muniz request. * Kb Hamlin [facility] - 02/16/2019 10:19 AM EST Patient Evaluation [...] EST Hospitalist Progress Note 02/16/2019 8:32 AM [phone]: Please page me for patient care issues. [phone]: Please page [facility] night Hospitalist for any issues. Subjective: Admit Date: 02/11/2019 PCP: MITA MORTON DO Room#: 5125/[id number] Interval History: Patient seen and examined No [...] of Hospitalist Medicine Inpatient Medical Services PAGER: [phone] Addendum patient was complaining of abdominal pain [...] Intake/Output Summary (Last 24 hours) at 02/16/2019 0572 Last data filed at 02/16/2019 0534 Gross [...] EST Hospitalist Progress Note 02/15/2019 8:29 AM [phone]: Please page me for patient care issues. [phone]: Please page [facility] night Hospitalist for any issues. Subjective: Admit Date: 02/11/2019 PCP: MITA MORTON DO Room#: 9158/[id number] Interval History: Patient seen and examined No [...] of Hospitalist Medicine Inpatient Medical Services PAGER: [phone] * Carina Ovalles OT - 02/15/2019 7:10 AM EST Occupational Therapy OT Hold Note OT eval and treat orders received. Pt is scheduled for ERCP and cholecystectomy today. Will hold OTeval until after surgery. Carina Ovalles OTR/L * Tj Muniz MD - 02/14/2019 12:11 PM EST Hospitalist Progress Note 02/14/2019 12:11 PM [phone]: Please page me for patient care issues. [phone]: Please page [facility] night Hospitalist for any issues. Subjective: Admit Date: 02/11/2019 PCP: MITA MORTON DO Room#: [id number] Interval History: Patient seen and examined No [...] of Hospitalist Medicine Inpatient Medical Services PAGER: [phone] * Lila Vance PA-C - 02/14/2019 10:02 [...] 02/13/2019 5:21 PM EST Physical Therapy Facility/Department: [facility] MED SURG Initial Assessment NAME: Prema Villalpando [...] Ambulation Assistance: Independent Transfer Assistance: Independent Active Sand Screener Operator: Yes Mode of Transportation: Car Occupation: Retired [...] High Nutrient Needs: Estimated Daily Total Kcal: 1118-3755 (25-28) Estimated Daily Protein (g): 51-61 (1.0-1.2) [...] 6 months: (08/13/18) 139# --> (02/12/19) 113# [place] Body Wt: 100 lb (45.4 kg), BMI [...] Constipation, Monitor Bowel Function Contact Number: pager [phone] * Lila Vance PA-C - 02/13/2019 10:50 [...] EST Hospitalist Progress Note 02/13/2019 8:42 AM [phone]: Please page me for patient care issues. [phone]: Please page [facility] night Hospitalist for any issues. Subjective: Admit Date: 02/11/2019 PCP: MITA MORTON, Room#: 5125/[id number] Interval History: Patient seen and examined No [...] of Hospitalist Medicine Inpatient Medical Services PAGER: [phone] * Sonny Peres MD - 02/12/2019 10:47 AM EST Hospitalist Progress Note 02/12/2019 10:48 AM Subjective: Admit Date: 02/11/2019 PCP: MITA MORTON DO Interval History: No overnight issues. Pt denies any abdominal pain DIET FULL LIQUID; Date 02/12/19 0000 - 02/12/19 2359 Shift 6884-4398 2609-2768 9003-6889 24 Hour Total INTAKE P.O.(mL/kg/hr) 0(0) 0 [...] Date PHART 7.464 08/05/2018 PO2ART 113.3 08/05/2018 AOR6GTB 32.7 08/05/2018 Recent Labs 02/11/19 1100 02/12/19 [...] If patient is beta-lactam allergic, please call [facility] Microbiology lab ([phone]) within 2 days to request susceptibility testing. [...] Code Discharge planning: TBD Sonny Peres [facility] * Devan Fitzgerald MD - [...] or concerns. -2 Department of General Surgery #[id number] [facility] Work Phone: [phone] Hospital Discharge instructions* Discharge Instr - Activity* [...] sent through Care Everywhere. * Cholecystectomy: Post-op ([place]izen [place]) [facility] Work Phone: Evaluation [...] Work Phone: Evaluation noteNo assessment information available [facility] Work Phone: Evaluation note* Diagnosis 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) documented in this encounter [facility] Work Phone: Evaluation note* Diagnosis Onset Date Resolution Status Dysphagia acute History of esophageal stricture acute History of hypertension acut e [facility] Work Phone: Evaluation note* Diagnosis Other specified symptoms and signs involving the circulatory and respiratory systems [facility] Diagnosis Anemia- Primary Unspecified anemia Anemia Unspecified anemia Hyponatremia Hyposmolality and/or hyponatremia Hepatitis Unspecified hepatitis [facility] Diagnosis Coronary artery disease involving [place] coronary artery of [place] heart without angina pectoris- Primary Persistent atrial fibrillation (HCC) Atrial fibrillation Mixed hyperlipidemia [facility] [facility]acour[facility] note* Diagnosis Other specified symptoms and signs involving the circulatory and respiratory systems- Primary Other specified symptoms and signs involving the circulatory and respiratory systems [facility] Diagnosis Other specified abnormal findings of blood chemistry [facility]* Diagnosis Other persistent atrial fibrillation (HCC)- Primary [facility]* Diagnosis Hyperlipidemia, unspecified- Primary [facility]* Diagnosis Onset Date Resolution Status Dysphagia acute Alzheimer's dementia chronic [facility] Work Phone: Evaluation note* Diagnosis Injury of head, initial encounter- Primary [facility] Dorsalgia, unspecified- Primary Unspecified urinary incontinence documented in this encounter [facility] note* Diagnosis Coronary artery disease involving [place] coronary artery of [place] heart without angina pectoris- Primary Persistent atrial fibrillation (HCC) Atrial fibrillation Mixed hyperlipidemia Vascular dementia, unspecified dementia severity, unspecified whether behavioral, psychotic, or mood disturbance or anxiety (HCC) documented in this encounter [facility] note* Diagnosis Other specified abnormal findings of blood chemistry documented in this encounter [facility] note* Diagnosis Other specified diseases of liver [facility] Diagnosis Dysphagia Esophageal obstruction Stricture and stenosis of esophagus Dementia (HCC) Other persistent mental disorders due to conditions classified elsewhere Stented coronary artery Postsurgical percutaneous transluminal coronary angioplasty status documented in this encounter [facility] note* Diagnosis Eosinophilic esophagitis- Primary documented in this encounter [facility] note* Diagnosis Eosinophilic esophagitis- Primary documented in this encounter [facility] note* Diagnosis Eosinophilic esophagitis- Primary documented in this encounter [facility] note* Diagnosis Eosinophilic esophagitis- Primary documented in this encounter [facility] note* Diagnosis Other specified abnormal findings of blood chemistry- Primary Other specified abnormal findings of blood chemistry documented in this encounter [facility] note* Diagnosis Other specified abnormal findings of blood chemistry- Primary Other specified abnormal findings of blood chemistry documented in this encounter [facility] note* Diagnosis Other specified diseases of liver- Primary Other specified diseases of liver documented in this encounter [facility] Discharge instructions* Instructions* Juanis Maldonado V., [...] mild sore throat. You may use an upra-ytz-eukpuxi chloraseptic spray, gargle with warm salt water, [...] an upset belly after: o Coffee o [place] fruits and juices o Tomato products o [...] 2013-11-16 Last Updated 02/15/16 [facility] Discharge instructions* Attachments The following attachments cannot be sent through Care Everywhere. * Upper GI Endoscopy Discharge Instructions (Citizen Of [place]) [facility] (narrative)No reason for referral information [facility] Work Phone: Reason for visit Narrative* Imaging (Routine) - Closed Specialty Diagnoses / Procedures Referred By Elzbieta baeza Referred To Contact Radiology Diagnoses Other specified diseases of liver Procedures MR abdomen w and wo contrast Mita Morton, DO [address] [place] [address] Phone: tel: fax: [facility] [address] [place] [address] Phone: tel: Referral ID Status Reason Start Date Expiration Date Visits Re quested Visits Authorized [id number] Closed 12/01/2023 11/30/2024 1 1 [facility] History of Present Illness * [...] current CBC. Discussed with patient, daughter, and staff rn. Will continue to monitor. OK to discharge [...] For additional Questions please call Endoscopy at [phone]. Thank You! * Yaz Bowman RN - 09/21/2018 8:24 AM EDT Daughter bernardo notified via telephone that patient would be going to endo at approx 1100. * Thania Leong MD - 09/20/2018 4:35 PM EDT No further spotting today. Pain has greatly improved. In the process of bowel prep for colonoscopy tomorrow. No automobile assembler concerns at this time. * Haily Mcghee [...] 15 08/05/2018 Lab Results Component Value Date [id number] 815 08/06/2018 Lab Results Component Value Date FOLATE >20.0 08/06/2018 LDH 182 ASSESSMENT AND PLAN Review of records from [facility] reveals that patient did in fact receive complete course of Venoferinfusions - the last being 09/06/2018. Colonoscopy tomorrow. RBC morphology still pending. Discussedwith patient and staff rn. Will continue to monitor. Total visit time > 35 minutes. * [place] Jane, NEETA - 09/20/2018 1:00 PM EDT Physical Therapy Facility/Department: [facility] TELEMETRY Daily Treatment Note NAME: Prema Villalpando [...] GBS colonization of urine 8. Hx of CAD/AR/stents recently on ASA and Plavix, Cardiology will not agree to withholding either at this time 9. Hx of anemia and transfusions, ? of MDS, will re-consult Dr. Amin 10. Vaginal bleeding, consult MASONRY INSTALLER no workup needed Plan Colonoscopy tomorrow Advance Directive: Full Code DVT prophylaxis scd's Active Problems: Coronary artery disease involving [place] coronary artery of [place] heart without angina pectoris Abdominal pain Resolved [...] Risksreviewed .Active Problems: Coronary artery disease involving [place] coronary artery of [place] heart without angina pectoris Abdominal pain Resolved [...] 2. Active Problems: Coronary artery disease involving [place] coronary artery of [place] heart without angina pectoris Abdominal pain Resolved Problems: * No resolved hospital problems. * DIMITRIS CAVAZOS MD * Constance Crenshaw, BRASS MOLDER - CHANGEOVER OPERATOR - 09/19/2018 11:46 AM EDT CARDIOLOGY PROGRESS [...] AC Active Problems: Coronary artery disease involving [place] coronary artery of [place] heart without angina pectoris Abdominal pain Resolved [...] collapses by greater than 50% with inspiration. [facility]: 08/04/2018 1. Acute coronary syndrome. Reperfusion was [...] team, GI and heme/onc Vaginal bleeding - MASONRY INSTALLER consulted Dispo: will continue to follow [...] due to elevated lipase over weekend - MASONRY INSTALLER consulted for vaginal bleeding - Regular Diet - prn pain/nausea medication - activity as tolerated - disposition: stable from surgery standpoint, continue po ABX,, f/u with Dr. Ash in 1 month Patient counseled on risks, benefits, and alternatives of treatment plan today. Patient states an understanding and willingness to proceed with plan. Betsy Reeves PA-C Personal Pager [phone] [facility] Pager [phone] during hours 7:30a-4:30p Wednesday-Wednesday After hours, please contact physician correctional captain. * Seema Schwarz MD - 09/18/2018 2:38 [...] GBS colonization of urine 8. Hx of CAD/AR/stents recently on ASA and Plavix, Cardiology will not agree to withholding either at this time 9. Hx of anemia and transfusions, ? of MDS, will re-consult Dr. Amin 10. Vaginal bleeding, consult MASONRY INSTALLER Advance Directive: Full Code DVT prophylaxis scd's Discharge planning: home Active Problems: Coronary artery disease involving [place] coronary artery of [place] heart without angina pectoris Abdominal pain Resolved Problems: * No resolved hospital problems. * Seema Schwarz MD * Franklin Aviles, PT - 09/18/2018 10:32 AM EDT Physical Therapy Facility/Department: [facility] 4S TELEMETRY Daily Treatment Note NAME: Prema [...] Aviles PT * Noelle Manrique, KALYN - CHANGEOVER OPERATOR - 09/18/2018 10:21 AM EDT CARDIOLOGY PROGRESS NOTE Chart and interval events reviewed. Reason for Visit hospital follow up CAD SUBJECTIVE: Prema Villalpando states abd pain resolved. No CP (was anginal sx w/AR), palpitations, dizziness, syncope. Up in chair in [...] AC Active Problems: Coronary artery disease involving [place] coronary artery of [place] heart without angina pectoris Abdominal pain Resolved [...] had rectal or vaginal bleeding. Had -ve automobile assembler eval 1 week ago. Was treated with [...] per surgery and cardiology due to recent AR, stents, anticoag. Begin Yeny in the interim. [...] prn pain/nausea medication - activity as tolerated Pager:[phone] Associated attestation - Donald Ash MD - [...] High Nutrient Needs: Estimated Daily Total Kcal: 1154-4146 Estimated Daily Protein (g): 55-66 Nutrition Diagnosis: [...] , 12.9% wt loss in 2 mo [place] Body Wt: 115 lb (52.2 kg), % [place] Body 106% BMI Classification: BMI 18.5 - [...] They would most likely benefit from a size tester consult. Spoke to Dr. Schwarz re: family [...] GBS colonization of urine 7. Hx of CAD/AR/stents recently on ASA and Plavix, Cardiology will [...] Date 09/17/18 0000 - 09/17/18 2359 Shift [id number] 8920-0736 6627-5773 24 Hour Total INTAKE I.V.(mL/kg) 900(16.2) 900(16.2) [...] need for surgical intervention; patient recently had AR with 2x stents in August 04 2018, on dual antiplatelet therapy. - Epigastric/RUQ abdominal pain resolved - Regular Diet - Attempt non-operative management secondary to recent stents, start PO Augmentin - HIDA scan cancelled - GI following - prn pain/nausea medication - activity as tolerated Pager:[phone] * Dimitris Cavazos MD - 09/16/2018 3:09 [...] 09/16/2018 11:21 AM EDT Patient arrived to [facility] for her Hida Scan. Her IV was [...] 09/16/2018 10:15 AM EDT Physical Therapy Facility/Department: [facility] TELEMETRY Initial Assessment NAME: Prema Villalpando [...] Care;General Safety Barriers to Learning: Pt is [place] which may impact her ability to learn [...] Left in bed, Nurse notified OutComes Score AM-[facility] Mobility Inpatient How much difficulty turning over [...] climbing 3-5 steps with a railing?: Total -[facility] Inpatient Mobility Raw Score : 16 [facility] Inpatient T-Scale Score : 40.78 Mobility Inpatient CMS 0-100% Score: 54.16 Mobility Inpatient CMS G-Code Modifier : CK AM-PAC Score [facility] Inpatient Mobility Raw Score : 16 (09/16/181004) [facility] T-Scale Score : 40.78 (09/16/181004) Mobility [...] pain, unspecified site Coronary artery disease involving [place] coronary artery of [place] heart without angina pectoris Iron deficiency anemia Iron deficiency anemia, unspecified Diagnosis Coronary artery disease involving [place] coronary artery of [place] heart without angina pectoris Dyslipidemia Other and unspecified hyperlipidemia Diagnosis Nontoxic single thyroid nodule Nontoxic uninodular goiter Diagnosis Thyroid nodule Nontoxic uninodular goiter Advance Directives No Advanced Directives Records FoundDocuments on File Type Date Recorded Patient Measurer Machine Expl anation Advance Directives and Livin g Will Advance Directives and Livin g Will 08/09/2018 2:28 PM Advance Directives and Livin g Will 08/19/2018 2:08 PM Power of Supervisor Central Supply Latest Code Status on File Code Status Date Activated Date Inactivated Comments Full Code 09/15/2018 1:35 PM Full Code 08/04/2018 8:50 PM 08/08/2018 6:48 PM Full Code 08/04/2018 8:50 PM 08/04/2018 8:50 PM Documents on File Type Date Recorded Patient Measurer Machine Expl anation Advance Directives and Livin g Will Advance Directives and Livin g Will 08/09/2018 2:28 PM Advance Directives and Livin g Will 08/19/2018 2:08 PM Advance Directives and Livin g Will 02/22/2019 10:08 AM Advance Directives and Livin g Will 03/09/2019 1:06 PM Power of Supervisor Central Supply Latest Code Status on File Code Status Date Activated Date Inactivated Comments Full Code 02/14/2019 10:08 AM 02/18/2019 4:36 PM Full Code 02/11/2019 12:28 PM 02/14/2019 10:08 AM Full Code 09/15/2018 1:35 PM 09/21/2018 7:54 PM Documents on File Type Date Recorded Patient Measurer Machine Expl anation Advance Directives and Livin g Will Advance Directives and Livin g Will 08/09/2018 2:28 PM Advance Directives and Livin g Will 08/19/2018 2:08 PM Advance Directives and Livin g Will 02/22/2019 10:08 AM Advance Directives and Livin g Will 03/09/2019 1:06 PM Advance Directives and Livin g Will 04/05/2019 3:18 PM Power of Supervisor Central Supply Documents on File Type Date Recorded Patient Measurer Machine Expl anation ACP-Advance Directive ACP-Advance Directive 08/09/2018 2:28 PM ACP-Advance Directive 08/19/2018 2:08 PM ACP-Advance Directive 02/22/2019 10:08 AM ACP-Advance Directive 03/09/2019 1:06 PM ACP-Advance Directive 04/05/2019 3:18 PM ACP-Power of Supervisor Central Supply Documents on File Type Date Recorded Patient Measurer Machine Expl anation ACP-Advance Directive ACP-Advance Directive 08/09/2018 2:28 PM ACP-Advance Directive 08/19/2018 2:08 PM ACP-Advance Directive 02/22/2019 10:08 AM ACP-Advance Directive 03/09/2019 1:06 PM ACP-Advance Directive 04/05/2019 3:18 PM ACP-Power of Supervisor Central Supply Latest Code Status on File Code Status Date Activated Date Inactivated Comments Full Code 02/14/2019 10:08 AM 02/18/2019 4:36 PM Full Code 02/11/2019 12:28 PM 02/14/2019 10:08 AM Full Code 09/15/2018 1:35 PM 09/21/2018 7:54 PM Full Code 08/04/2018 8:50 PM 08/08/2018 6:48 PM Full Code 08/04/2018 8:50 PM 08/04/2018 8:50 PM Documents on File Type Date Recorded Patient Measurer Machine Expl anation ACP-Advance Directive ACP-Power of Supervisor Central Supply ACP-Advance Directive 04/05/2019 3:18 PM ACP-Advance Directive 03/09/2019 1:06 PM ACP-Advance Directive 02/22/2019 10:08 AM ACP-Advance Directive 08/19/2018 2:08 PM ACP-Advance Directive 08/09/2018 2:28 PM Latest Code Status on File Code Status Date Activated Date Inactivated Comments Full Code 02/14/2019 10:08 AM Documents on File Type Date Recorded Patient Measurer Machine Expl anation Advance Directives and Livin g Will Advance Directives and Livin g Will 08/09/2018 2:28 PM Advance Directives and Livin g Will 08/19/2018 2:08 PM Advance Directives and Livin g Will 02/22/2019 10:08 AM Power of Supervisor Central Supply Advance Directive Response Recorded Date/ Time Living Will No February 10 0 3:40pm Power of Supervisor Central Supply Yes February 10, 020 3:40pm Advance Directive Response Recorded Date/ Time Name of Medical Power of Supervisor Central Supply Hossein [email or web address] May 12, 2022 12:29pm Living Will Yes May 12, 2022 12:29pm Power of Supervisor Central Supply Yes May 12 12:29pm Advance Directive Response Recorded Date/ Time Name of Medical Power of Supervisor Central Supply Hossein Cornell - aki May 12, 2022 12:29pm Name of Medical Power of Supervisor Central Supply HOSSEIN CORNELL June 01, 2022 8:32pm Living Will Yes June 01, 2022 8:32pm Power of Supervisor Central Supply Yes June 01 8:32pm Documents on File Type Date Recorded Patient Measurer Machine Expl anation Advance Directives and Living Will 04/04/2019 Advance Directives and Living Will 03/07/2019 Advance Directives and Living Will 02/11/2019 Latest Code Status on File Code Status Date Activated Date Inactivated Comments Full Code 06/13/2022 4:30 PM Healthcare Agents on File Name Relationship Healthcare Agent [facility] Communication Hossein Cornell Child Health Care Agent Documents on File Type Date Recorded Patient Measurer Machine Expl anation Advance Directives and Living Will [...] Yes June 01, 2022 8:32pm Power of Supervisor Central Supply Yes June 01 8:32pm Healthcare Agents on [...] Date/ Time Name of Medical Power of Supervisor Central Supply DAUGHTER December 29, 2022 12:22pm Living Will Yes December 29, 2 023 12:22pm Power of Supervisor Central Supply Yes December 29, 2022 12:22pm Advance Directive Response Recorded Date/ Time Name of Medical Power of Supervisor Central Supply DAUGHTER December 29, 2022 12:22pm Name of Medical Power of Supervisor Central Supply daughter April 04, 2023 11:12am Living Will Yes April 04, 2 024 11:12am Power of Supervisor Central Supply Yes April 04, 2023 11:12am Healthcare Agents on File Name Relationship Healthcare Agent Relationshi p Communication Hossein Demali Child Health Care Agent [phone] (Home) [email or web address] Healthcare Agents on File Name Relationship Healthcare Agent Relationshi p Communication Hossein Demali Child Health Care Agent [phone] (Home) [email or web address] Date Activated Date Inactivated Comments 06/13/2022 4:30 PM 06/16/2022 10:36 PM Healthcare Agents on File Name Relationship Healthcare Agent Relationshi p Communication Hossein Demali Child Health Care Agent [phone] (Home) [email or web address] Healthcare Agents on File Name Relationship Healthcare Agent Relationshi p Communication Hossein Demali Child Health Care Agent [phone] (Home) [email or web address] Healthcare Agents on File Name Relationship Healthcare Agent Relationshi p Communication Hossein Demali Child Health Care Agent [phone] (Mobile)[email or web address] Date Activated Date Inactivated Comments 06/13/2022 4:30 PM 06/16/2022 10:36 PM Healthcare Agents on File Name Relationship Healthcare Agent Relationshi p Communication Hossein Demali Child Health Care Agent [phone] (Mobile) Healthcare Agents on File Name Relationship Healthcare Agent Relationshi p Communication Hossein Demali Child Health Care Agent [phone] (Mobile)[email or web address] Summary Purpose Family History No Family History Records Found Relationship Condition Age at Onset Recorded Date/T ranjana Not Specified Unknown Reason for Referral Status Reason Specialty Diagnoses / Procedures Referre d By Contact Referred To Contact Open Radiology Diagnoses Thyroid nodule Procedures US FINE NEEDLE ASPIRATION Zoe WyattKALYN - CHANGEOVER OPERATOR [address] [facility] [address] [place] [address] Status Reason Specialty Diagnoses / Procedures Referre d By Contact Referred To Contact Open Radiology Diagnoses Thyroid nodule Procedures US Thyroid Zoe WyattKALYN - CHANGEOVER OPERATOR [address] [facility] [address] [place] [address] Status Reason Specialty Diagnoses / Procedures Referre d By Contact Referred To Contact Open Radiology Diagnoses Left thyroid nodule Procedures US GUIDED THYROID BIOPSY PERCUTANEOUS Betsy Reeves PA-C [address] [facility] [address] [place] [address] Specialty Diagnoses / Procedures Referred By Elzbieta baeza Referred To Contact Cardiology Diagnoses Other specified symptoms and signs involving the circulatory and respiratory systems Procedures Vascular US carotid artery duplex bilateral Mita Morton, [address] [place] [address] Referral ID Status Reason Start Date Expiration Date Visits Requested Visits Authorized [id number] Pending Review Perform Procedure 05/27/2022 11/23/2022 1 1 Discharge Instructions * Attachments The following attachments cannot be sent through Care Everywhere. * Thyroid: Biopsy: Fine-Needle: Post-op (Citizen Of [place]) * Thyroid Nodules (Citizen Of [place]) documented in this encounter Chief Complaint and [...] Dysphagia Alzheimer's dementia Chief Complaint Admit Date SKILLED NURSING LAB WORK March 16, 2024 5:00am MONTHLY EXAM March 21, 2024 2:27pm MONTHLY EXAM April 10, 2024 2:51 pm MONTHLY EXAM May 09, 2024 4:31 pm Additional Source Comments INFORMATION SOURCE (unrecogn ized section and content) DATE CREATED AUTHOR 03/21/2019 [facility] DATE CREATED AUTHOR AUTHOR'S ORGANIZ ATION 07/01/2019 [facility] DATE CREATED AUTHOR AUTHOR'S ORGANIZ ATION 10/07/2019 [facility] DATE CREATED AUTHOR AUTHOR'S ORGANIZ ATION 12/02/2019 [facility] DATE CREATED AUTHOR AUTHOR'S ORGANIZ ATION 05/16/2021 [facility] DATE CREATED AUTHOR AUTHOR'S ORGANIZ ATION 12/26/2023 [facility] DATE CREATED AUTHOR AUTHOR'S ORGANIZ ATION 08/11/2024 [facility] Reason for Visit (unrecogniz ed section and content) Reason Comments Other transfer. Dx with ch olecystitis Specialty Diagnoses / Procedures Referred By Contac t Referred To Contact Cardiology Diagnoses Other specified symptoms and signs involving the circulatory and respiratory systems Procedures Vascular US carotid artery duplex bilateral Mita Morton DO [address] [place] [address] Referral ID Status Reason Start Date Expiration Date Visits Requested Visits Authorized [id number] Pending Review Perform Procedure 05/27/2022 11/23/2022 1 1 Reason Comments Leg Swelling Specialty Diagnoses / Procedures Referred By Contac t Referred To Contact Diagnoses Hyponatremia Anemia Hepatitis Procedures . Mita Morton DO [address] [place] [address] [facility] [address]e Telemetry [address] [place], [place] [address] [address] Referral ID Status Reason Start Date Expiration Date Visits Re quested Visits Authorized [id number] 1 1 Reason Comments Med Refill Reason Comments 1 Year Follow-up Coronary Artery Disease Reason Onset Date Comments Cardiac Clearance 12/09/2022 Reason Onset Date Comments Fall 07/20/2023 Reason Onset Date Comments Cardiac Clearance 07/23/2023 Specialty Diagnoses / Procedures Referred By Contac t Referred To Contact Diagnoses Dysphagia Dysphagia [R13.10] Procedures CT ESOPHAGOGASTRODUODENOSCOPY TRANSORAL DIAGNOSTIC EGD DIAGNOSTIC Lalitha Powell MD [address] [place] [address] [address] [place] [address] [facility] [address] [place] [address] Referral ID Status Reason Start Date Expiration Date Visits Re quested Visits Authorized [id number] 1 1 Reason Onset Date Comments Medication Question 02/27/2022 Care Coordination 02/27/2022 Goals (unrecognized section and content) Goals may be documented in a n alternate sectionGoals may be documented in an alternate sectionGoals may be documented in an alternate section Care Teams (unrecognized sec tion and content) Costume Specialist Relationship Specialty Start Date End Date Mita Morton DO [address] [place] [address] PCP - General 09/05/18 Team Status: Active [...] Status: Inactive Member Role Status Dates Dr. Mtia Morton DO Primary Care Provider Active Dr. [...] Dr. Xavier Younger MD Emergency Provider Active Costume Specialist Relationship Specialty Start Date End Date [facility] [address] [place] [address] PCP - General 02/10/22 Mita Morton DO Family Medicine 01/12/22 Costume Specialist Relationship Specialty Start Date End Date [facility] [address] [place] [address] PCP - General 02/10/22 06/14/22 Mita Morton DO [address] [place] [id number] PCP - General Family Medicine 06/15/22 Mita Morton DO Family Medicine 01/12/22 Costume Specialist Relationship Specialty Start Date End Date Mita Morton DO [address] [place] [phone] PCP - General Family Medicine 06/15/22 Mita Morton DO Family Medicine 01/12/22 Costume Specialist Relationship Specialty Start Date End Date Mita Morton DO [address] [place] [address] PCP - General Family Medicine 06/15/22 Mita Morton DO Family Medicine 01/12/22 Costume Specialist Relationship Specialty Start Date End Date [facility] [address] [place] [address] PCP - General 02/10/22 06/14/22 Mita Morton DO [address] [place] [phone] PCP - General Family Medicine 06/15/22 Mita Morton DO Family Medicine 01/12/22 Costume Specialist Relationship Specialty Start Date End Date Mita Morton DO [address] [place] [id number] PCP - General Family Medicine 06/15/22 Mita Morton DO [facility] Medicine 01/12/22 Costume Specialist Relationship Specialty Start Date End Date Mita Morton DO [address] [place] [address] PCP - General Family Medicine 06/15/22 Mita Morton DO [facility] Medicine 01/12/22 Team Status: Inactive Member Role Status Dates Dr. Mita Morton , DO Primary Care Provider Active Fallon Mcclendon NP COMPUTER ANALYST SUPERVISOR-C Attending Provider Active Team Status: Inactive Member [...] Pro vider, Attending Provider, Referring Provider Active Costume Specialist Relationship Specialty Start Date End Date Mita Morton DO [address] [place] [address] PCP - General Family Medicine 06/15/22 Mita Morton DO Family Medicine 01/12/22 Costume Specialist Relationship Specialty Start Date End Date Mita Morton DO [address] [address] [place] [id number] PCP - General Family Medicine 06/15/22 Mita [...] Active Memo Naqvi MD Emergency Provider Active Costume Specialist Relationship Specialty Start Date End Date Mita Morton DO [address] [place] [place] [address] PCP - General Family Medicine 06/15/22 Mita Morton DO Family Medicine 01/12/22 Costume Specialist Relationship Specialty Start Date End Date Mita Morton DO [address] [place] [address] [place] [id number] PCP - General Family Medicine 06/15/22 Mita Morton DO Family Medicine 01/12/22 Costume Specialist Relationship Specialty Start Date End Date Mita Morton DO [address] [place] [address] [place] [phone] PCP - General Family Medicine 06/15/22 Mita Morton DO Family Medicine 01/12/22 Costume Specialist Relationship Specialty Start Date End Date Mita Morton DO [address] [place] [place] [address] PCP - General Family Medicine 06/15/22 Mita Morton DO Family Medicine 01/12/22 Costume Specialist Relationship Specialty Start Date End Date No, Pcp [address] [place] [address] PCP - General 02/10/22 Mita Morton DO [address] [phone] Family Medicine 01/12/22 Costume Specialist Relationship Specialty Start Date End Date No, Pcp [address] [place] [address] PCP - General 02/10/22 Mita Morton DO Family Medicine 01/12/22 Costume Specialist Relationship Specialty Start Date End Date No, Pcp [address] [place] [address] PCP - General 02/10/22 Mita Morton DO Family Medicine 01/12/22 Costume Specialist Relationship Specialty Start Date End Date No, Pcp [address] [place] [address] PCP - General 02/10/22 Mita Morton DO Family Medicine 01/12/22 Costume Specialist Relationship Specialty Start Date End Date No, Pcp [address] [place] [address] PCP - General 02/10/22 Mita Morton DO [...] End: April 10, 2024 Fallon Mcclendon NP, COMPUTER ANALYST SUPERVISOR-C Attending Provider Active Start: April 10, 2024 End: April 10, 2024 Team Status: Inactive Member Role Status Dates Dr. Mita Morton DO Primary Care Provider Active Start: May 09, 2024 End: May 09, 2024 Dr. Anabel Duvall MD Attending Provider Active Start: May 09, 2024 End: May 09, 2024 Team Status: Active Member Role Status Dates Dr. Mita Mortno DO Primary Care Provider Active Start: June 12, 2024 Anabel WALSH MD Attending Provider Active Start: June 12, 2024 Scheduled Active and Recently Administ ered Medications (unrecognized section and content) Medication Order 06/14/2022 06/15/2022 06/16/2022 dicyclomine (Bentyl) capsule 10 mg 10 mg, Oral, 3 times daily, First dose on 06/13/22 at 1641 0832 (Given - Provider: Lennie Aguilar RN)1622 (Given - Provider: Lennie Aguilar, ELEAZAR)2118 (Given - Provider: Ashley Gutierrez RN) 0816 (Given - Provider: Lennie Aguilar RN)1607 (Given [...] or prosecute any alcohol or drug abuse patient.[facility] FOR RECORDS PERTAINING TO PATIENTS WHO ARE [...] BE BASED ON THE PRIMARY CLINICAL RECORDS. [employer] provides no warranty or guarantee of the accuracy or completeness of information in this document.
[2024-08-18 07:08] LABS: Mucous, Urine 0 SEEN /hpf (<or=2+); Red Blood Cells-Urine 0 SEEN /hpf (0-5)
[2024-08-18 07:20] LABS: Hematocrit 33.3 % (37-47); Hemoglobin 10.7 g/dL (12.0-15.0); Immature Granulocytes Count 0.020 X10^3/uL (0.0-0.0); Mean Corp Hgb Conc 32.1 g/dL (32-36); Mean Corpuscular Volume 89.3 fL (81-99); Mean Platelet Vol. 12.2 fl (6.2-12.0); NRBC Flagged by Analyzer 0 % (0-5); Platelet Count 202 K/mm3 (150-450); RBC Distribution Width CV 13.4 % (11.6-14.6); RBC Distribution Width SD 43.8 fl (35.1-43.9); Red Blood Count 3.73 M/mm3 (4.2-5.4); White Blood Count 7.0 K/mm3 (4.4-11.0)
[2024-08-18 08:12] LABS: Color, Urine Yellow (Yellow); Glucose, Dipstick Normal (Normal); Ketone-Dipstick Negative (Negative); Leukocyte Esterase-Dipstick 500 /ul (Negative); Nitrite-Dipstick Negative (Negative); Occult Blood-Urine Negative /ul (Negative); Protein-Dipstick 15 mg/dl (Negative); Specific Gravity, Urine 1.015 (1.002-1.030); Urine Bilirubin Dipstick Negative (Negative)
[2024-08-18 08:19] LABS: Squamous Epithelial Cells - UA 0-5 SEEN /hpf (5-10)
== END ==
LOC: OLS.WHLCAR 05:00
PROVIDERS: PCP Family Medicine; Visit Provider Internal Medicine
DX: N39.0 Urinary tract infection, site not specified (principal); D50.9 Iron deficiency anemia, unspecified
CPT/HCPCS: 36415; 81001; 85025; 87077; 87086; 87088; 87186

== ENCOUNTER → 2024-09-14 04:00 | Outpatient (REF) | payer MEDICARE, OTHER, SELFPAY ==
--- OUTSIDE RECORDS SUMMARY | 2024-09-14 04:17 | XMS RPT_ITS | CCD ---
Author Organization [facility] CliniSymn Care Team Providers Care Security Threat Analyst Name Role Phone Alisson Morton Primary Care Provider Dr. Alisson Morton Primary Care Provider Dr. Zonia Benitez Emergency Provider Dr. Jovi Pack Admit Provider Dr. Jovi Pack Attending Provider Dr. Jovi Pack Other Provider Dr. Roque Herrera Attending Provider Dr. Deonte Guardado Attending Provider Dr. Jovi Pack Referring Provider Alisson Morton DO Unavailable [facility] Primary Care Provider Unav ailadonis [facility] Primary Care Provider Unav ailAlisson Lucas DO Primary Care Provider Alisson Morton DO Unavailable Alisson Morton DO Primary Care Provider Dr. Alisson Morton Primary Care Provider Hakan WHELAN, DREW Lehman Attending Provider Unav Dr. Anabel Freeman Attending Provider Dr. Alisson Morton Primary Care Provider Dr. Alisson Morton Referring Provider Dr. Roque Herrera Attending Provider Friend, Dr. Nevarez Other Provider Unavailable Primary Care Provider Unavailabl e Esterle DO, Alisson M Unavailable No, Pcp Primary Care Provider Unavailabl e Esterle DO, Alisson M Unavailable Praveen DO, Dr. Alisson Lima Primary Care Provider Anabel Duvall MD Attending Provider Unavailtyrone Duvall MD, Dr. Little Attending Provider Hakan RADIO SCRIPT WRITER-C, Fallon Attending Provider Praveen BORJA, Dr. Alisson Lima Primary Care Provider Eloina CHRISTIANSEN, Dr. Little Attending Provider Anabel Duvall MD Attending Provider Unavailtyrone Morton DO, Dr. Alisson Lima Referring Provider Sherwin RADIO SCRIPT WRITER-CBrittany Attending Provider ESTERLE, ALISSON Attending Unavailable ESTERLE, ALISSON Referring Unavailable ESTERLE, ALISSON Primary Care Unavailable ESTERLE, ALISSON Attending Unavailable ESTERLE, ALISSON Referring Unavailable ESTERLE, ALISOSN Primary Care Unavailable TONI BEY Attending Unavailable ESTERLE, ALISSON Primary Care Unavailable Roof RADIO SCRIPT WRITER-C, Osmar Wheeler Attending Provider Kelly RADIO SCRIPT WRITER-C, Osmar Wheeler Attending Provider Hakan RADIO SCRIPT WRITER-C, Fallon Attending Provider Hakan RADIO SCRIPT WRITERFallon Attending Unavailable Esterle, Alisson M Primary Care Unavailable Esterle, Alisson M Primary Care Unavailable ChanogheAnabel Attending Unavailable Esterle, Alisson M Primary Care Unavailable Oleghe Anabel WALSH Attending Unavailabl e ChanogheAnabel Attending Unavailable Esterle, Alisson M Primary Care Unavailable López Rodriguez Attending Unavailable Esterle, Alisson M Primary Care Unavailable Oleghe Anabel WALSH Attending Unavailabl e Esterle, Alisson M Primary Care Unavailable Esterle, Alisson M Primary Care Unavailable Oleghe Anabel WALSH Attending Unavailabl e Esterle, Alisson M Primary Care Unavailable Oleghe OLS, Efewongbe Attending Unavailabl e Esterle, Alisson M Referring Unavailable Esterle, Alisson M Primary Care Unavailable Brittany Courtney Attending Unavailable Oleghe JILLIAN, Anabel Attending Unavailabl e Esterle, Laisson M Primary Care Unavailable Esterle, Alisson M Primary Care Unavailable Erich Barrett Referring Unavailable David GIRON, Erich Lima Attending Unavailable Esterle, Alisson M Primary Care Unavailable Oleghe Albaro WALSHbe Attending Unavailabl e Esterle, Alisson M Primary Care Unavailable Olegracee Efewongbe Attending Unavailable [place] RADIO SCRIPT WRITER, Fallon Attending Unavailable Esterle, Alisson M Primary Care Unavailable Esterle, Alisson M Primary Care Unavailable Tickton RADIO SCRIPT WRITER, Fallon Attending Unavailable Tickton RADIO SCRIPT WRITER, Fallon Attending Unavailable Esterle, Alisson M Primary Care Unavailable Esterle, Alisson M Primary Care Unavailable [facility] RADIO SCRIPT WRITER, Osmar Wheeler Attending Unavailable Esterle, Alisson M Referring Unavailable Esterle, Alisson M Primary Care Unavailable Erich Barrett Attending Unavailable Tickton RADIO SCRIPT WRITER, Fallon Attending Unavailable Esterle, Alisson M Primary Care Unavailable Tickton RADIO SCRIPT WRITER, Fallon Attending Unavailable Esterle, Alisson M Primary Care Unavailable Oleghe Efewongbe Attending Unavailable Esterle, Alisson M Primary Care Unavailable Allergies Allergy Classification Reported Allergen(s) Allergy Type Date of Onset Reaction(s) Facility Ticagrelor (2 sources) [facility] Drug Allergy 9 [facility] (20 sources) Ticagrelor Drug Allergy 9 [facility] Work [facility]: (20 sources) Ticagrelor Propensity to adverse reactions 9 Shortness of breath [facility] (1 source) Ticagrelor Drug Allergy 5 [facility] Repository Medications Current Medications Medication Drug [...] mg / clavulanate 125 mg oral tablet (7 sources) Penicillin-class Antibacterial Start: 11-22-2023 Amoxicillin-Pot Clavulanate [...] P2Y12 Platelet Inhibitor Start : 08-17 End: 08-18 take 1 tablet by mouth once daily [...] MG PO DAILY February 10, 2019 4:07pm ibuprofen 800 mg oral tablet (2 sources) Nonsteroidal Anti-inflammatory Drug Start : 05-21 take 1 tablet by mouth every six hours for pain ibuprofen (ADVIL;MOTRIN) 800 MG tablet TAKE 1 TABLET BY MOUTH EVERY 6 HOURS FOR DENTAL PAIN 0 05/21/2020 Active LORazepam 0.5 mg oral tablet (4 sources) Benzodiazepine Start : 08-17 take 1 tablet by mouth every eight hours as needed for anxiety Lorazepam 0.5 mg tablet Active 0.5 mg PO .every 8 hours as needed for anxiety 20 20 0 August 17, 2024 12:00am September 05, 2024 12:00am Future refill only. magnesium hydroxide 80 mg/ml oral suspension (3 sources) Start : 02-11 take 30 mL [...] TWICE A DAY May 12, 2022 12:00am mirtazapine 15 mg oral tablet (20 sources) [...] PO DAILY October 18, 2018 9:36am nystatin 511570 unt/ml oral suspension (3 sources) Polyene Antifungal Start: 05-13-2022 Nystatin Active [id number] UNIT PO EVERY 6 HOURS 56 7 May 13, 2022 12:00am administer 1/2 of dose in each side of the mouth ondansetron 4 mg oral tablet (3 sources) [...] 09-15-2018 ondansetron (Z OFRAN) injection 4 mg oxyCODONE (1 source) Opioid Agonist Start: 02-15-2019 oxyCODONE (ROXICODONE) immediate release tablet 2.5 mg pantoprazole 20 mg delayed release oral tablet (10 sources) Proton Pump Inhibitor Start: 08-18-2024 take 1 tablet by mouth once daily Pantoprazole 20 mg tablet,delayed release (DR/EC) Active 20 mg PO daily August 18, 2024 12:00am Start: 09-16-2018 End: 06-16-2022 take 40 mg by mouth once daily before breakfast 40 mg, Oral, Daily before breakfast, First dose on 06/14/22 at 0700 Do not crush, chew, or split. polyethylene glycol 3350 94679 mg powder for oral solution (6 sources) [...] extended release tablet 20 mEq Start: 11-14-2018 End: 08-18-2024 take 1 tablet by mouth twice daily at mealtime potassium chloride ER (Micro-K) 10 MEQ ER capsule TAKE 1 TABLET BY MOUTH TWICE DAILY WITH MEALS 11/14/2018 08/18/2024 Discontinued (Therapy completed) Start: 10-18-2018 take 10 mEq by mouth [...] 2018 9:36am QUEtiapine 25 mg oral tablet (6 sources) Atypical Antipsychotic Start: 07-09-2024 take 1 tablet by mouth twice daily QUEtiapine (SEROquel) 25 MG tablet Take 25 mg by mouth 2 times daily. 07/09/2024 Active Start: 11-22-2023 Quetiapine 25 mg tablet Active 12.5 mg PO AT BEDTIME November 22, 2023 12:00am rivastigmine 3 mg oral capsule (20 sources) Start: 06-13-2022 End: 06-16-2022 take 3 mg by mouth twice daily 3 mg, Oral, 2 times daily, First dose on [email or web address] 06/13/22 at 2100 Start: 12-29-2021 take 1 capsule by [facility] twice daily Rivastigmine Tartrate 3 mg capsule [...] 1 tablet by mouth once daily therapeutic multivitamin-computer forensics examiner als (Theragran-M) tablet Take 1 tablet by [...] First dose on Micheline 09/15/18 at 1400 torsemide 20 mg oral tablet (20 sources) Loop Diuretic Start: 08-17-2018 End: 07-20-2022 take 1 tablet by mouth once daily Torsemide 20 MG tablet Active 20 mg PO DAILY October 18, 2018 12:00am ursodiol 300 mg oral capsule (20 sources) [...] dose on Micheline 09/15/18 at 2100 B Gsteojt-A-Wybf TABS (1 source) End: 09-15-2018 take 1 tablet by mouth once daily B Pcyuzwg-J-Cwps TABS Take 1 tablet by mouth daily [...] mouth daily (with breakfast) 0 09/15/2018 Discontinued 24 hr fesoterodine fumarate 4 mg extended release oral tablet (20 sources) End: 08-18-2024 take 1 tablet by mouth once daily, then take 1 tablet by mouth every twenty-four hours fesoterodine ER (Toviaz) 4 MG 24 hr tablet Take 4 mg by mouth daily. 08/18/2024 Discontinued (Therapy completed) 120 actuat fluticasone propionate 0.22 mg/actuat metered [...] hydrochloride 10 mg oral tablet (20 sources) Z-byydds-E-aspart ate Receptor Antagonist Start: 05-12-2022 End: 07-23-2023 [...] daily. 0 11/07/2021 08/25/2022 Discontinued (Therapy completed) metoprolol tartrate 25 mg oral tablet (20 sources) beta-Adrenergic Yessenia Start: 05-12-2022 End: 08-18-2024 Metoprolol Tartrate 25 mg tablet Discontinued 12.5 mg PO DAILY May 12, 2022 12:00am August 18, 2024 9:12am Start: 05-12-2022 take 12.5 mg by mout [...] by mouth 2 times daily 0 Active 1 ml morphine sulfate 4 mg/ml injection [...] Start: 09-15-2018 morphine (PF) injection 2 mg omeprazole 40 mg delayed release oral capsule (20 sources) Proton Pump Inhibitor Start: 10-18-2018 End: 04-04-2023 take 1 capsule by mouth once daily Omeprazole (Prilosec) 40 MG capsule Discontinued 40 mg PO DAILY October 18, 2018 12:00am April 04, 2023 11:19am Start: 08-17-2018 End: 08-18-2024 take 1 capsule by mouth once daily Omeprazole 40 mg capsule,delayed release(DR/EC) Discontinued 40 mg PO DAILY April 04, 2023 1:00am August 18, 2024 9:12am ondansetron ODT (Zofran-ODT) disintegrating tablet 4 mg (2 sources) Start: 06-13-2022 End: 06-16-2022 take 1 tablet by mouth every eight hours as needed for nausea and vomiting ondansetron ODT (Zofran-ODT) disintegrating tablet 4 mg oxybutynin chloride 5 mg oral tablet (20 sources) Cholinergic Muscarinic Antagonist Start: 07-31-2022 End: 08-18-2024 take 1 tablet by mouth twice daily Oxybutynin Chloride 5 mg tablet Discontinued 5 mg PO TWICE A DAY July 23, 2023 1:48pm August 18, 2024 9:12am Start: 05-12-2022 End: 07-23-2023 take 1 tablet by mouth once daily Oxybutynin Chloride 5 mg tablet Discontinued 5 mg PO DAILY May 12, 2022 12:00am July 23, 2023 1:49pm Start: 01-20-2022 End: 06-16-2022 take 1 tablet by mouth twice daily oxybutynin (Ditropan) 5 MG tablet Take 5 mg by mouth 2 times daily. 0 07/31/2022 Active piperacillin 3000 mg / tazobactam 375 mg [...] e flush 0.9 % injection 10 mL tiZANidine 4 mg oral tablet (20 sources) Central alpha-2 Adrenergic Agonist Start: 01-20-2022 End: 08-18-2024 take 1 tablet by mouth three times daily as needed for muscle spasms Tizanidine 4 mg tablet Discontinued 4 mg PO 3 TIMES DAILY NEEDED as needed for Muscle Spasm May 12, 2022 12:00am August 18, 2024 9:12am trospium chloride 20 mg oral tablet (2 sources) Cholinergic Muscarinic Antagonist Start: 06-13-2022 End: 06-16-2022 take 20 mg by mouth once daily 20 mg, Oral, Daily, First dose on 06/13/22 at 1645 Substituted for oxybutynin (DITROPAN); fesoterodine (TOVIAZ); darifenacin (ENABLEX); solifenacin (VESICARE); tolterodine IR (DETROL); tolterodine ER (DETROL LA). 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; Translations: [Coronary atherosclerosis] Onset: 9 09-18-2018 Chronic Deficiency and other anemia (20 sources) Anemia; Translations: [Anemia, unspecified] Onset: 3 02-10-2019 Episodic Deficiency and other anemia (1 source) Iron deficiency anemia, unspecified; Translations: [Iron deficiency anemia, unspecified] Onset: 5 Episodic Delirium, dementia, and amnestic and other [...] Onset: 9 10-04-2018 Chronic E Codes: Fall (6 sources) Fall; Translations: [Unspecified fall, initial encounter] 04-04-2023 Episodic Esophageal disorders (20 sources) Obstruction of esophagus; Translations: [Esophageal obstruction] Onset: 3 02-23-2022 Chronic Essential hypertension (11 sources) Hypertensive disorder; Translations: [Essential (primary) hypertension] 02-10-2019 Chronic Genitourinary symptoms and ill-defined conditions (1 source) Urinary incontinence; Translations: [Unspecified urinary incontinence] 05-11-2023 Chronic Immunizations and screening for infectious disease (10 sources) Contact with or exposure to other viral diseases; Translations: [Exposure to COVID-19 virus] 08-15-2021 Episodic Malaise and fatigue (18 sources) Tired; Translations: [Other fatigue] 06-01-2022 Episodic Nonspecific chest pain (11 sources) Atypical chest pain; Translations: [Other chest pain] 02-11-2019 Episodic Nutritional deficiencies (20 sources) Nutritional marasmus; Translations: [Unspecified severe protein-calorie malnutrition] Onset: 0 02-13-2019 Chronic Open wounds of extremities (6 sources) Laceration without foreign body of left upper arm, initial encounter; Translations: [Skin tear of left upper extremity] 04-04-2023 Episodic Other circulatory disease (10 sources) H/O: hypertension; Translations: [Personal history of [...] Onset: 9 08-15-2018 Chronic Other gastrointestinal disorders (10 sources) History of stricture of esophagus; Translations: [...] specified diseases of liver] Onset: 4 Chronic Screening and history of mental health and substance abuse codes (9 sources) H/O: dementia; Translations: [Personal history of other mental and behavioral disorders] 06-01-2022 Episodic Spondylosis; intervertebral disc disorders; other back problems (1 source) Backache; Translations: [Dorsalgia, unspecified] 05-11-2023 Episodic Superficial injury; contusion (6 sources) Contusion of face; Translations: [Contusion of [...] Cough, unspecified; Translations: [Cough, unspecified] Onset: 4 Urinary tract infections (1 source) Urinary tract infection, site not specified; Translations: [Urinary tract infection, site not specified] Onset: 5 Episodic Viral infection (10 sources) Disease caused by 2019-nCoV; Translations: [COVID-19] [...] 08-08-2018 08-08-2018 Episodic Fluid and electrolyte disorders (13 sources) Mild dehydration; Translations: [Dehydration] Onset: 03-17-2024 06-01-2022 Episodic Other aftercare (20 sources) Patient encounter status; Translations: [rodent exterminator (current) use of antithrombotics/antip latelets] Onset: 02-12-2019 02-12-2019 Episodic Other aftercare (7 sources) Long-term current use of drug therapy; Translations: [rodent exterminator (current) use of antithrombotics/antip latelets] Onset: 02-12-2019 11-23-2021 Episodic Other lower respiratory disease (13 sources) Dyspnea; Translations: [Shortness of breath] Onset: 08-07-2018 Resolved: 08-08-2018 08-08-2018 Episodic Other screening for suspected conditions (not mental disorders or infectious disease) (9 sources) Liver function tests abnormal; Translations: [Abnormal results of liver function studies] Onset: 11-11-2023 Episodic Residual codes; unclassified (2 sources) Altered mental status, unspecified; Translations: [Altered mental status, unspecified] Onset: 03-17-2024 Episodic Unclassified (10 sources) h/o throat surgery 09-08-2021 Comment on above: enlarged esophagous Results Test Name Value Interpretation Reference Range Facility Absolute lymphocyte countOrd ered By: Anabel Duvall on 08-18-2024 Lymphocytes Auto (Unsp spec) [#/Vol] 1.85 10*3/uL 0.83-4.51 [facility] Absolute neutrophil countOrd ered By: Anabel Duvall on 08-18-2024 Neutrophils (Bld) [#/Vol] 4.1 10*3/uL 2.0-7.7 [facility] Automated lymphocyte count a s percentage of total leukocytesOrdered By: Anabel Duvall on 08-18-2024 Lymphocytes/100 WBC Auto (Unsp spec) 26.5 % 19-41 [facility] Basophil percentageOrdered B y: Anabel Duvall on 08-18-2024 Basophils/100 WBC (Bld) 1.0 % 0-1 [facility] ECG 12 lead - CLINIC PERFORM EDon 08-18-2024 [facility] Undetermined Rhythm , probable sinus Low voltage in limb leads. -Old inferior infarct -Decreasing R-wave progression -may be secondary to pulmonary disease consider old anterior infarct. -Nonspecific T-abnormality. ABNORMAL [facility] Eosinophil percentageOrdered By: Anabel Duvall on 08-18-2024 Eosinophils/100 WBC (Bld) 4.2 % 0-5 [facility] Erythrocyte distribution wid th ratioOrdered By: Anabel Duvall on 08-18-2024 Erythrocyte distribution width (RBC) [Ratio] 13.4 % 11.6-14.6 [facility] Erythrocyte distribution wid th standard deviationOrdered By: Anabel Duvall on 08-18-2024 Erythrocyte distribution width (RBC) [Ratio] 43.8 fl 35.1-43.9 [facility] Gastroenterology Visit Repor ton 08-18-2024 Gastroenterology Visit Report [facility] Gastroenterology [address] [place] [place] [address] OFFICE VISIT Date of Service: 08/18/24 MR#: [id number] Acct: [id number] Name: RICARDO VILLALPANDO Rep #: [id number] : 1940 Provider: DREW landry Age/Sex: 83/F Location: [facility] Status: Signed Intake Vital Signs 11/22/23 16:39 Height 4 ft 11 in Intake Visit Reasons: needs to schedule esophagus stretching Chief Complaint: difficulty swallowing Allergies ticagrelor (From Brilinta) Allergy (Verified 08/18/24 09:11) Shortness of breath Medications ???Medication ???Instructions ???Recorded ???Confirmed ???Type sertraline 50 mg tablet 50 mg PO DAILY 10/18/18 08/18/24 H istory torsemide 20 mg tablet 20 mg PO DAILY 10/18/18 08/18/24 H istory metformin 500 mg tablet 500 mg PO BID 05/12/22 08/18/24 Hi [facility] rivastigmine tartrate 3 mg capsule 3 mg PO BID 04/04/23 08/18/24 Hi story mirtazapine 15 mg tablet 15 mg PO QHS 07/27/23 08/18/24 His tory amoxicillin 875 mg-potassium 1 tab PO BID #20 tabs 11/22/23 Rx clavulanate 125 mg tablet quetiapine 25 mg tablet 12.5 mg PO QHS 11/22/23 08/18/24 H istory lorazepam 0.5 mg tablet 0.5 mg PO .every 8 hours PRN 08/17 Rx anxiety 20 days #20 tabs pantoprazole 20 mg tablet,delayed 20 mg PO QDAY 08/18/24 08/18/24 H istory release Have you fallen in the past year?: No PFSH Medical History Acute bronchitis, unspecified Wears glasses Wears dentures Wears partial dentures Bladder disease Low iron Back pain Hypertension Difficulty swallowing History of hiatal hernia Gastric reflux Non-smoker Leg cramps Cardiology follow-up encounter History of CHF (congestive heart failure) History of heart attack Wears hearing aid in both ears Diabetes Dementia Dyslipidemia Iron deficiency anemia, unspecified Paroxysmal atrial fibrillation Atherosclerotic heart disease of false pass coronary artery without angina pectoris Persistent atrial fibrillation Gallstone of bile duct with gallbladder inflammation h/o throat surgery Hyperlipidemia Anemia Surgical History History of esophagogastroduodenoscop y (EGD) Hx of partial thyroidectomy History of esophagogastroduodenoscop y (EGD) H/O colonoscopy H/O eye surgery H/O heart artery stent Family History Other no pertinent family medical hsitory Social History Smoking Status: Never smoker HPI HPI Chief Complaint: difficulty swallowing Details: RICARDO VILLALPANDO, is a 83 F who presents to the office today for FU and to schedule EGD w/dilation. EGD 01.04.23 Esophageal mucosal changes consistent with eosinophilic esophagitis. Moderate Schatzki ring. Dilated. Large hiatal hernia. Bile gastritis. No gross lesions in the duodenal bulb. Biopsies were taken with a cold forceps for evaluation of eosinophilic esophagitis. OV 6.14.24 Pt's daughter states that pt is doing well, but has really slowed down with her eating; pt's daughter states it takes her an hour to eat a sandwich. BM are normal. Continues with omeprazole. 07.29.24 EGD - Benign-appearing esophageal stenosis(endoscope could not pass). Dilated to 42Fr - Esophageal mucosal changes suggestive of eosinophilic esophagitis. - Large hiatal hernia. - Erythematous mucosa in the stomach. - No gross lesions in the first portion of the duodenum. - Biopsies were taken with a cold forceps for evaluation of eosinophilic esophagitis. PATH: Fragments of squamous epithelium with moderate chronic inflammation. Changes consistent with eosinophilic esophagitis are not seen. 08.18.24 OV She presents with staff from [facility]. Staff, Prema, is unfamiliar with Ricardo and her GI concerns; she agrees to call the facility during my exam so that I may talk with caretakers. I spoke with Sharmila French LPN and she relayed that Ricardo has intermittent difficulties with varying food consistencies. She will do fine with regular textures and thin liquids and then she won't. Sharmila reports that Ricardo just completed ST on 08.08.24 without further recommendations despite nursing staff expressing concerns with her coughing while eating on occasion. Ricardo does nod her head no when I asked about abdominal pain and if she feels like she has difficulty chewing and swallowing. Ricardo has documented dementia and I'm uncertain of its severity. ROS Const Constitutional: No fatigue, fever(s) or weight change ENT ENT: Positive for difficulty swallowing Gastro GI: Positive for abdominal pain and difficulty swallowing; No belching, bloating, change in bowel habits, change in stool character, coffee gr (more content not included)... Normal [facility] Hematocrit Auto (Bld) [Volum e fraction]Ordered By: Anabel Duvall on 08-18-2024 Hematocrit (Bld) [Volume fraction] 33.3 % Low 37-47 [facility] Hemoglobin measurementOrdere d By: Anabel Duvall on 08-18-2024 Hemoglobin (Bld) [Mass/Vol] 10.7 g/dL Low 12.0-15.0 [facility] Immature granulocytes/100 WB C Auto (Bld)Ordered By: Anabel Duvall on 08-18-2024 Immature granulocytes/100 WBC (Bld) 0.300 % 0.0-0.9 [facility] Comment on above: IG% - Immature Granu locytes (promyelocytes, myelocytes and metamyelocytes) > 1% indicates that a LEFT SHIFT is Present. MCV (mean corpuscular volume ) determinationOrdered By: Anabel Duvall on 08-18-2024 MCV (RBC) [Entitic vol] 89.3 fL 81-99 [facility] Mean corpuscular hemoglobin (MCH) determinationOrdered By: Anabel Duvall on 08-18-2024 MCH (RBC) [Entitic mass] 28.7 pg 27.0-32.0 [facility] Mean corpuscular hemoglobin concentration (MCHC) determinationOrdered By: Lunanav Maddengracejuana on 08-18-2024 MCHC (RBC) [Mass/Vol] 32.1 g/dL 32-36 [facility] Mean platelet volume determi nationOrdered By: Anabel Maddengracejuana on 08-18-2024 Platelet mean volume (Bld) [Entitic vol] 12.2 fL High 6.2-12.0 [facility] Monocyte percentageOrdered B y: Albarojono Maddengracejuana on 08-18-2024 Monocytes/100 WBC (Bld) 8.6 % 0-10 [facility] Neutrophil percentageOrdered By: Anabel Maddengracejuana on 08-18-2024 Neutrophils/100 WBC (Bld) 59.4 % 47-70 [facility] Nucleated red blood cell per centageOrdered By: Anabel Maddengracejuana on 08-18-2024 Nucleated RBC/100 WBC (Bld) [Ratio] 0 % 0-5 [facility] Office Visiton 08-18-2024 Follow-up visit [id number] Jayna Villalpando 1940 F Date Provider Department Center 08/18/2024 [id number] BEY [facility] Family History Problem Relation Age of Onset High Blood Pressure Mother Heart disease Brother Cancer Brother Coronary artery disease Brother High Blood Pressure Brother Diabetes Brother Family Status - Relation Status Age at Mother Father Brother Level of Service:86173 NM OFFICE/OUTPATIENT ESTABLISHED MOD MDM 30 MIN Reason for Visit and Comments: 1 Year Follow-up [670] Coronary Artery Disease [187] Normal [facility] Platelet countOrdered By: Luna anyajono Duvall on 08-18-2024 Platelets (Bld) [#/Vol] 202 10*3/uL 150-450 [facility] Progress Noteon 08-18-2024 Progress Note [facility] Cardiology [facility] [place] [address] [facility] [address] [facility] [id number] Dept: [phone] Dept Visit type: Established : 1940 Chief Complaint: Chief Complaint Patient presents with 1 Year Follow-up Coronary Artery Disease History of Present Illness: Ricardo Villalpando is a 83 y.o. female who is here in follow-up with her daughter. She has advanced dementia. She now lives in a [facility]. There have not been complaints of chest pain or shortness of breath. The daughter denies known problems with syncope or near syncope. She is active but is limited in her activities. Past Medical History: Medical History[1] Past Surgical History Surgical History[2] Family History Family History[3] Social History Social History[4] Allergies: Allergies[5] Medications: Current Medications[6] Review of Systems: Review of Systems Constitutional: Negative for activity change, chills, diaphoresis, fatigue and fever. HENT: Negative for nosebleeds and trouble swallowing. Eyes: Negative for discharge and visual disturbance. Respiratory: Negative for apnea, cough, chest tightness, shortness of breath and wheezing. Cardiovascular: Positive for leg swelling (slight). Negative for chest pain and palpitations. Gastrointestinal: Negative for abdominal distention, abdominal pain, [...] for dysphoric mood. Physical Examination: Vitals: Vitals: 08/18/24 1434 BP: 128/78 BP Location: Left arm Patient Position: Sitting BP Cuff Size: Adult Pulse: 87 SpO2: 97% Weight: 105 lb (47.6 kg) Height: 5' (1.524 m) Body mass index is 20.51 kg/m?. Physical Exam Constitutional: Appearance: Normal appearance. HENT: Head: Normocephalic and atraumatic. Nose: Nose [...] focal deficit present. Mental Status: She is alert. She is confused. Cranial Nerves: Cranial nerves [...] BUN 18 (H) 09/24/2022 CREATININE 0.85 [facility]/24/2022 [facility] Lab Results Component Value Date CHOL 143 [...] and Plan: 1. Coronary artery disease involving false pass coronary artery of false pass heart without angina pectoris 2. Persistent atrial fibrillation (HCC) 3. Mixed hyperlipidemia 1. Coronary artery disease: She has a history of remote stenting. She is doing well with no symptoms of angina per the [facility]. Continued medical therapy is recommended. 2. History of prior atrial fibrillation: She has not had any documented recurrence. She is not anticoagulated due to risks. 3. Hyperlipidemia: On therapy. 4. Advanced dementia. [1] Past Medical History: Diagnosis Date Anemia Anxiety GERD (gastroesophageal reflux disease) H/O heart artery stent 08/04/2018 History of blood transfusion Hx of blood clots (more content not included)... Normal [facility] RBC Auto (Bld) [#/Vol]Ordere d By: Anabel Duvall on 08-18-2024 RBC (Bld) [#/Vol] 3.73 10*6/uL Low 4.2-5.4 [facility] White blood cell (WBC) count Ordered By: Anabel Duvall on 08-18-2024 WBC (Bld) [#/Vol] 7.0 10*3/uL 4.4-11.0 [facility] Bilirubin Test strip Ql (U)O rdered By: Anabel Duvall on 08-17-2024 Bilirubin Ql (U) Negative Negative [facility] Ketones Test strip Ql (U)Ord ered By: Anabel Duvall on 08-17-2024 Ketones Ql (U) Negative Negative [facility] Microscopic analysis of urin e for red blood cells (RBC)Ordered By: Anabel Duvall on 08-17-2024 Microscopic analysis of urine for red blood cells (RBC) 0 SEEN /hpf 0-5 [facility] Mucus LM Ql (Urine sed)Order ed By: Anabel Duvall on 08-17-2024 Mucus Ql (Urine sed) 0 SEEN /hpf [facility] Nitrite Test strip Ql (U)Ord ered By: Anabel Duvall on 08-17-2024 Nitrite Ql (U) Negative Negative [facility] Protein Test strip Ql (U)Ord ered By: Anabel Duvall on 08-17-2024 Protein Ql (U) 15 mg/dl High Negative [facility] Squamous epithelial cells de tection in urine sediment by light microscopyOrdered By: Anabel Duvall on 08-17-2024 Epithelial cells.squamous LM Ql (Urine sed) 0-5 SEEN /hpf 5-10 [facility] Urine clarityOrdered By: Shan Duvall on 08-17-2024 Clarity (U) Sl. Cloudy Clear [facility] Urine color determinationOrd ered By: Anabel Duvall on 08-17-2024 Color (U) Yellow Yellow [facility] Urine cultureOrdered By: Shan Duvall on 08-17-2024 Bacteria identified Cx Nom (U) Escherichia coli Abnormal [facility] Urine glucose detectionOrder ed By: Anabel Duvall on 08-17-2024 Glucose Ql (U) Normal mg/dl Normal [facility] Urine leukocyte esterase det ection by dipstickOrdered By: Anabel Duvall on 08-17-2024 Leukocyte esterase Test strip Ql (U) 500 /ul High Negative [facility] Urine pHOrdered By: Yoseph Duvall on 08-17-2024 pH (U) 6.0 [pH] 5.0 - 8.0 [facility] Urine sediment bacteria coun t by microscopy (number/high power field)Ordered By: Anabel Duvall on 08-17-2024 Bacteria LM.HPF (Urine sed) [#/Area] 2 /[HPF] None Seen [facility] Urine specific gravity measu rementOrdered By: Anabel Duvall on 08-17-2024 Specific gravity (U) [Rel density] 1.015 1.002-1.030 [facility] Urine urobilinogen measureme ntOrdered By: Anabel Duvall on 08-17-2024 Urobilinogen Ql (U) Normal mg/dl Normal [facility] White blood cell countOrdere d By: Anabel Duvall on 08-17-2024 White blood cell count 25-50 SEEN /hpf 0-5 [facility] Absolute lymphocyte countOrd ered By: Anabel Duvall on 08-09-2024 Lymphocytes Auto (Unsp spec) [#/Vol] 1.22 10*3/uL 0.83-4.51 [facility] Absolute neutrophil countOrd ered By: Anabel Duvall on 08-09-2024 Neutrophils (Bld) [#/Vol] 2.7 10*3/uL 2.0-7.7 [facility] Automated lymphocyte count a s percentage of total leukocytesOrdered By: Anabel Duvall on 08-09-2024 Lymphocytes/100 WBC Auto (Unsp spec) 27.1 % 19-41 [facility] Basophil percentageOrdered B y: Anabel Duvall on 08-09-2024 Basophils/100 WBC (Bld) 0.9 % 0-1 [facility] Eosinophil percentageOrdered By: [facility] Eloina on 08-09-2024 Eosinophils/100 WBC (Bld) 3.8 % 0-5 [facility] Erythrocyte distribution wid th ratioOrdered By: [facility] Eloina on 08-09-2024 Erythrocyte distribution width (RBC) [Ratio] 13.3 % 11.6-14.6 [facility] Erythrocyte distribution wid th standard deviationOrdered By: [facility] Du[facility] on 08-09-2024 Erythrocyte distribution width (RBC) [Ratio] 43.3 fl 35.1-43.9 [facility] Hematocrit Auto (Bld) [Volum e fraction]Ordered By: [facility] Du[facility] on 08-09-2024 Hematocrit (Bld) [Volume fraction] 30.2 % Low 37-47 [facility] Hemoglobin measurementOrdere d By: kunjacksonjono Duvall on 08-09-2024 Hemoglobin (Bld) [Mass/Vol] 9.9 g/dL Low 12.0-15.0 [facility] Immature granulocytes/100 WB C Auto (Bld)Ordered By: nav Duvall on 08-09-2024 Immature granulocytes/100 WBC (Bld) 0.200 % 0.0-0.9 [facility] Comment on above: IG% - Immature Granu locytes (promyelocytes, myelocytes and metamyelocytes) > 1% indicates that a LEFT SHIFT is Present. MCV (mean corpuscular volume ) determinationOrdered By: nav Duvall on 08-09-2024 MCV (RBC) [Entitic vol] 88.6 fL 81-99 [facility] Mean corpuscular hemoglobin (MCH) determinationOrdered By: Anabel Duvall on 08-09-2024 MCH (RBC) [Entitic mass] 29.0 pg 27.0-32.0 [facility] Mean corpuscular hemoglobin concentration (MCHC) determinationOrdered By: Anabel Duvall on 08-09-2024 MCHC (RBC) [Mass/Vol] 32.8 g/dL 32-36 [facility] Mean platelet volume determi nationOrdered By: Anabel Duvall on 08-09-2024 Platelet mean volume (Bld) [Entitic vol] 12.1 fL High 6.2-12.0 [facility] Monocyte percentageOrdered B y: Anabel Duvall on 08-09-2024 Monocytes/100 WBC (Bld) 9.1 % 0-10 [facility] Neutrophil percentageOrdered By: Chinojacksonjono Duvall on 08-09-2024 Neutrophils/100 WBC (Bld) 58.9 % 47-70 [facility] Nucleated red blood cell per centageOrdered By: Anabel Duvall on 08-09-2024 Nucleated RBC/100 WBC (Bld) [Ratio] 0 % 0-5 [facility] Platelet countOrdered By: Luna Duvall on 08-09-2024 Platelets (Bld) [#/Vol] 164 10*3/uL 150-450 [facility] RBC Auto (Bld) [#/Vol]Ordere d By: Anabel Duvall on 08-09-2024 RBC (Bld) [#/Vol] 3.41 10*6/uL Low 4.2-5.4 [facility] White blood cell (WBC) count Ordered By: Anabel Duvall on 08-09-2024 WBC (Bld) [#/Vol] 4.5 10*3/uL 4.4-11.0 [facility] Absolute lymphocyte countOrd ered By: Anabel Duvall on 06-12-2024 Lymphocytes Auto (Unsp spec) [#/Vol] 1.40 10*3/uL 0.83-4.51 [facility] Absolute neutrophil countOrd ered By: Anabel Duvall on 06-12-2024 Neutrophils (Bld) [#/Vol] 2.6 10*3/uL 2.0-7.7 [facility] Anion gap in Serum or Plasma Ordered By: Anabel Duvall on 06-12-2024 Anion gap [Moles/Vol] 10 mmol/L 5-15 [facility] Automated lymphocyte count a s percentage of total leukocytesOrdered By: Anabel Duvall on 06-12-2024 Lymphocytes/100 WBC Auto (Unsp spec) 30.2 % 19-41 [facility] BUN/creatinine ratioOrdered By: nav Duvall on 06-12-2024 Urea nitrogen/Creatinine [Mass ratio] 22.8 mg/mg High 10-20 [facility] Basophil percentageOrdered B y: Anabel Duvall on 06-12-2024 Basophils/100 WBC (Bld) 1.1 % High 0-1 [facility] Bilirubin, totalOrdered By: Anabel Duvall on 06-12-2024 Bilirubin [Mass/Vol] 0.40 mg/dL 0.00-1.30 [facility] Calculated very low density lipoprotein (VLDL) cholesterol measurementOrdered By: Anabel Duvall on 06-12-2024 Calculated very low density lipoprotein (VLDL) cholesterol measurement 15 mg/dL 5-40 [facility] Carbon dioxide, total [Moles /volume] in Central venous bloodOrdered By: Anabel Duvall on 06-12-2024 CO2 [Moles/Vol] 25.5 mmol/L 21.0-32.0 [facility] Chloride assayOrdered By: Luna Duvall on 06-12-2024 Chloride [Moles/Vol] 103 mmol/L 98-108 [facility] Eosinophil percentageOrdered By: Anabel Duvall on 06-12-2024 Eosinophils/100 WBC (Bld) 5.0 % 0-5 [facility] Erythrocyte distribution wid th ratioOrdered By: Anabel Duvall on 06-12-2024 Erythrocyte distribution width (RBC) [Ratio] 13.8 % 11.6-14.6 [facility] Erythrocyte distribution wid th standard deviationOrdered By: Anabel Duvall on 06-12-2024 Erythrocyte distribution width (RBC) [Ratio] 43.5 fl 35.1-43.9 [facility] Glomerular filtration rate ( GFR) estimation/1.73 sq m using serum, plasma, or whole bOrdered By: Anabel Duvall on 06-12-2024 GFR/1.73 sq M.predicted among non-blacks MDRD (S/P/Bld) [Vol rate/Area] 62 mL/min/{1.73_m2} >60 [facility] Comment on above: mL/min/1.73m2 CKD-EP I Creatinine Equation (2020) Hematocrit Auto (Bld) [Volum e fraction]Ordered By: Anabel Duvall on 06-12-2024 Hematocrit (Bld) [Volume fraction] 30.3 % Low 37-47 [facility] Hemoglobin A1c percentageOrd ered By: Anabel Duvall on 06-12-2024 HbA1c (Bld) [Mass fraction] 6.2 % High <5.7 [facility] Comment on above: Normal < 5.7 % Predi abetic 5.7 - 6.4 % Diabetic >or= 6.5 % Please note range changes. Hemoglobin measurementOrdere d By: Anabel Duvall on 06-12-2024 Hemoglobin (Bld) [Mass/Vol] 9.9 g/dL Low 12.0-15.0 [facility] Immature granulocytes/100 WB C Auto (Bld)Ordered By: Anabel Duvall on 06-12-2024 Immature granulocytes/100 WBC (Bld) 0.200 % 0.0-0.9 [facility] Comment on above: IG% - Immature Granu locytes (promyelocytes, myelocytes and metamyelocytes) > 1% indicates that a LEFT SHIFT is Present. LDL calc ser/plasOrdered By: Anabel Duvall on 06-12-2024 Cholesterol in LDL [Mass/Vol] 85 mg/dL [facility] Comment on above: Pufzwhtldz=271-952 m g/dL & Higher Ltaz=813 mg/dL or greater Laboratory - Chemistry and C hemistry - challengeOrdered By: Anabel Duvall on 06-12-2024 AST [Catalytic activity/Vol] 48 U/L High <32 [facility] MCV (mean corpuscular volume ) determinationOrdered By: Anabel Duvall on 06-12-2024 MCV (RBC) [Entitic vol] 88.1 fL 81-99 [facility] Mean corpuscular hemoglobin (MCH) determinationOrdered By: Anabel Duvall on 06-12-2024 MCH (RBC) [Entitic mass] 28.8 pg 27.0-32.0 [facility] Mean corpuscular hemoglobin concentration (MCHC) determinationOrdered By: Anabel Duvall on 06-12-2024 MCHC (RBC) [Mass/Vol] 32.7 g/dL 32-36 [facility] Mean platelet volume determi nationOrdered By: Anabel uDvall on 06-12-2024 Platelet mean volume (Bld) [Entitic vol] 12.3 fL High 6.2-12.0 [facility] Monocyte percentageOrdered B y: Anabel Duvall on 06-12-2024 Monocytes/100 WBC (Bld) 7.8 % 0-10 [facility] Neutrophil percentageOrdered By: [facility] on 06-12-2024 Neutrophils/100 WBC (Bld) 55.7 % 47-70 [facility] Nucleated red blood cell per centageOrdered By: Anabel Duvall on 06-12-2024 Nucleated RBC/100 WBC (Bld) [Ratio] 0 % 0-5 [facility] Platelet countOrdered By: Luna Duvall on 06-12-2024 Platelets (Bld) [#/Vol] 163 10*3/uL 150-450 [facility] Potassium measurement (mass/ volume)Ordered By: Anabel Duvall on 06-12-2024 Potassium (Unsp spec) [Mass/Vol] 3.7 mmol/L 3.3-5.1 [facility] RBC Auto (Bld) [#/Vol]Ordere d By: Anabel Duvall on 06-12-2024 RBC (Bld) [#/Vol] 3.44 10*6/uL Low 4.2-5.4 [facility] Screening total cholesterol/ high density lipoprotein (HDL) cholesterol ratioOrdered By: Anabel Duvall on 06-12-2024 Cholesterol.total/Chol esterol in HDL [Mass ratio] 2.87 {ratio} [facility] Serum creatinine measurement (mass/volume)Ordered By: Anabel Duvall on 06-12-2024 Creatinine [Mass/Vol] 0.92 mg/dL 0.70-1.20 [facility] Serum globulin measurementOr dered By: Anabel Duvall on 06-12-2024 Globulin (S) [Mass/Vol] 4.1 g/dL 2.2-4.2 [facility] Serum glucose measurement (m ass/volume)Ordered By: Anabel Duvall on 06-12-2024 Glucose [Mass/Vol] 98 mg/dL 70-99 [facility] Serum or plasma alanine gtz otransferase (ALT) measurementOrdered By: Anabel Duvall on 06-12-2024 ALT [Catalytic activity/Vol] 28 U/L <35 [facility] Serum or plasma albumin blanco urement (mass/volume)Ordered By: Anabel Duvall on 06-12-2024 Albumin [Mass/Vol] 3.2 g/dL Low 3.4-4.8 [facility] Serum or plasma albumin/glob ulin mass ratioOrdered By: Anabel Duvall on 06-12-2024 Albumin/Globulin [Mass ratio] 0.8 {ratio} Low 0.9-2.4 [facility] Serum or plasma alkaline javier sphatase measurementOrdered By: Anabel Duvall on 06-12-2024 ALP [Catalytic activity/Vol] 323 U/L High 35-104 [facility] Serum or plasma calcium blanco urement (mass/volume)Ordered By: Anabel Duvall on 06-12-2024 Calcium [Mass/Vol] 9.1 mg/dL 7.6-11.0 [facility] Serum or plasma cholesterol in HDL measurement (mass/volume)Ordered By: Anabel Duvall on 06-12-2024 Cholesterol in HDL [Mass/Vol] 53 mg/dL >40 [facility] Comment on above: National Cholesterol Education Program (NCEP) guidelines:<40 mg/dL: Low HDL-cholesterol (major risk factor for CHD)>= 60 mg/dL: High HDL-cholesterol (negative risk factor for CHD)HDL-cholesterol is affected by a number of factors, e.g. smoking, exercise, hormones, sex and age. Serum or plasma cholesterol measurement (mass/volume)Ordered By: Anabel Duvall on 06-12-2024 Cholesterol [Mass/Vol] 153 mg/dL <201 [facility] Comment on above: Cholesterol level, D esirable <200 mg/dLBorderline high cholesterol 200-239 mg/dLHigh cholesterol >=240 mg/dLRecommendations of the NCEP Adult Treatment Panel for the following risk-cutoff thresholds for the [place] population. Serum or plasma urea nitroge n measurement (mass/volume)Ordered By: Anabel Duvall on 06-12-2024 Urea nitrogen [Mass/Vol] 21 mg/dL High 4-19 [facility] Sodium levelOrdered By: Chino diasjerardojuana Duvall on 06-12-2024 Sodium [Moles/Vol] 139 mmol/L 133-145 [facility] Total proteinOrdered By: Shan dicksonjono Duvall on 06-12-2024 Protein [Mass/Vol] 7.4 g/dL 5.9-8.4 [facility] Triglycerides measurementOrd ered By: Anabel Duvall on 06-12-2024 Triglyceride [Mass/Vol] 75 mg/dL <199 [facility] Comment on above: The drugs N-Acetylcy steine and Metamizole may falsely depress this assay. Normal range: <150 mg/dLBorderline High: 150-199 mg/dLHigh: 200-499 mg/dLVery High: >500 mg/dL White blood cell (WBC) count Ordered By: Anabel Duvall on 06-12-2024 WBC (Bld) [#/Vol] 4.6 10*3/uL 4.4-11.0 [facility] Absolute lymphocyte countOrd ered By: Anabel Duvall on 03-16-2024 Lymphocytes Auto (Unsp spec) [#/Vol] 1.69 10*3/uL 0.83-4.51 [facility] Absolute neutrophil countOrd ered By: Anabel Duvall on 03-16-2024 Neutrophils (Bld) [#/Vol] 2.5 10*3/uL 2.0-7.7 [facility] Albumin to globulin ratioOrd ered By: Anabel Duvall on 03-16-2024 Albumin/Globulin [Mass ratio] 0.5 {ratio} Low 0.9-2.4 [facility] Automated lymphocyte count a s percentage of total leukocytesOrdered By: Anabel Duvall on 03-16-2024 Lymphocytes/100 WBC Auto (Unsp spec) 35.0 % 19-41 [facility] Basophil percentageOrdered B y: Anabel Duvall on 03-16-2024 Basophils/100 WBC (Bld) 0.8 % 0-1 [facility] Bilirubin, totalOrdered By: Anabel Duvall on 03-16-2024 Bilirubin [Mass/Vol] 0.30 mg/dL 0.20-1.00 [facility] Comment on above: For patients on eltr ombopag therapy, use of Dimension [place] TBIL is not recommended. Blood urea nitrogen (BUN)/cr eatinine ratioOrdered By: Anabel Duvall on 03-16-2024 Urea nitrogen/Creatinine [Mass ratio] 25.9 mg/mg High 10-20 [facility] Carbon dioxide measurementOr dered By: Anabel Duvall on 03-16-2024 CO2 [Moles/Vol] 29.0 mmol/L 21.0-32.0 [facility] Chloride measurementOrdered By: Anabel Duvall on 03-16-2024 Chloride [Moles/Vol] 104 mmol/L 98-107 [facility] Eosinophil percentageOrdered By: Anabel Duvall on 03-16-2024 Eosinophils/100 WBC (Bld) 3.3 % 0-5 [facility] Erythrocyte distribution wid th ratioOrdered By: Anabel Duvall on 03-16-2024 Erythrocyte distribution width (RBC) [Ratio] 13.3 % 11.6-14.6 [facility] Erythrocyte distribution wid th standard deviationOrdered By: Anabel Duvall on 03-16-2024 Erythrocyte distribution width (RBC) [Ratio] 45.3 fl High 35.1-43.9 [facility] Glomerular filtration rate ( GFR) estimationOrdered By: Anabel Duvall on 03-16-2024 GFR/1.73 sq M.predicted among non-blacks MDRD (S/P/Bld) [Vol rate/Area] 62 mL/min/{1.73_m2} >60 [facility] Comment on above: Non- GFR Calc Glucose measurementOrdered B y: Lunaanyajono Duvall on 03-16-2024 Glucose [Mass/Vol] 104 mg/dL 74-106 [facility] Comment on above: Fasting Glucose resu lt from 100 to 125 mg/dL suggests IMPAIRED HOMEOSTASIS per A.D.A. criteria. Hematocrit Auto (Bld) [Volum e fraction]Ordered By: Anabel Duvall on 03-16-2024 Hematocrit (Bld) [Volume fraction] 33.5 % Low 37-47 [facility] Hemoglobin A1c percentageOrd ered By: Anabel Duvall on 03-16-2024 HbA1c (Bld) [Mass fraction] 4.8 % 3.8-5.6 [facility] Comment on above: Normal < 5.7 % Predi abetic 5.7 - 6.4 % Diabetic >or= 6.5 % Please note range changes. Hemoglobin measurementOrdere d By: Anabel Duvall on 03-16-2024 Hemoglobin (Bld) [Mass/Vol] 10.6 g/dL Low 12.0-15.0 [facility] Immature granulocytes/100 WB C Auto (Bld)Ordered By: Anabel Duvall on 03-16-2024 Immature granulocytes/100 WBC (Bld) 0.200 % 0.0-0.9 [facility] Comment on above: IG% - Immature Granu locytes (promyelocytes, myelocytes and metamyelocytes) > 1% indicates that a LEFT SHIFT is Present. Laboratory - Chemistry and C hemistry - challengeOrdered By: Anabel Duvall on 03-16-2024 AST [Catalytic activity/Vol] 63 U/L High 15-37 [facility] MCV (mean corpuscular volume ) determinationOrdered By: Anabel Duvall on 03-16-2024 MCV (RBC) [Entitic vol] 92.0 fL 81-99 [facility] Mean corpuscular hemoglobin (MCH) determinationOrdered By: Anabel Duvall on 03-16-2024 MCH (RBC) [Entitic mass] 29.1 pg 27.0-32.0 [facility] Mean corpuscular hemoglobin concentration (MCHC) determinationOrdered By: Anabel Duvall on 03-16-2024 MCHC (RBC) [Mass/Vol] 31.6 g/dL Low 32-36 [facility] Mean platelet volume determi nationOrdered By: Anabel Duvall on 03-16-2024 Platelet mean volume (Bld) [Entitic vol] 12.6 fL High 6.2-12.0 [facility] Monocyte percentageOrdered B y: Anabel Duvall on 03-16-2024 Monocytes/100 WBC (Bld) 9.1 % 0-10 [facility] Neutrophil percentageOrdered By: Anabel Duvall on 03-16-2024 Neutrophils/100 WBC (Bld) 51.6 % 47-70 [facility] Nucleated red blood cell per centageOrdered By: Anabel Duvall on 03-16-2024 Nucleated RBC/100 WBC (Bld) [Ratio] 0 % 0-5 [facility] Platelet countOrdered By: Luna Duvall on 03-16-2024 Platelets (Bld) [#/Vol] 183 10*3/uL 150-450 [facility] Potassium measurementOrdered By: Anabel Duvall on 03-16-2024 Potassium [Moles/Vol] 4.2 mmol/L 3.5-5.1 [facility] RBC Auto (Bld) [#/Vol]Ordere d By: Anabel Duvall on 03-16-2024 RBC (Bld) [#/Vol] 3.64 10*6/uL Low 4.2-5.4 [facility] Serum anion gap measurementO rdered By: Anabel Duvall on 03-16-2024 Anion gap [Moles/Vol] 6 mmol/L 5-15 [facility] Serum globulin measurementOr dered By: Anabel Duvall on 03-16-2024 Globulin (S) [Mass/Vol] 5.3 g/dL High 2.2-4.2 [facility] Serum or plasma alanine gtz otransferase (ALT) measurementOrdered By: Anabel Duvall on 03-16-2024 ALT [Catalytic activity/Vol] 51 U/L 13-56 [facility] Serum or plasma albumin blanco urement (mass/volume)Ordered By: Anabel Duvall on 03-16-2024 Albumin [Mass/Vol] 2.9 g/dL Low 3.2-5.0 [facility] Serum or plasma alkaline javier sphatase measurementOrdered By: Anabel Duvall on 03-16-2024 ALP [Catalytic activity/Vol] 290 U/L High 45-117 [facility] Serum or plasma calcium blanco urement (mass/volume)Ordered By: Anabel Duvall on 03-16-2024 Calcium [Mass/Vol] 9.6 mg/dL 8.5-10.1 [facility] Serum or plasma creatinine m easurement (mass/volume)Ordered By: Anabel Duvall on 03-16-2024 Creatinine [Mass/Vol] 0.93 mg/dL 0.55-1.02 [facility] Comment on above: The validity of the calculated GFR & GFRAA in patients over 70 years has not been determined. Clinical correlation is essential. Serum or plasma urea nitroge n measurement (mass/volume)Ordered By: Anabel Duvall on 03-16-2024 Urea nitrogen [Mass/Vol] 24 mg/dL High 7-18 [facility] Sodium levelOrdered By: Chino Duvall on 03-16-2024 Sodium [Moles/Vol] 139 mmol/L 136-145 [facility] Total proteinOrdered By: Shan Duvall on 03-16-2024 Protein [Mass/Vol] 8.2 g/dL 6.4-8.2 [facility] White blood cell (WBC) count Ordered By: Anabel Duvall on 03-16-2024 WBC (Bld) [#/Vol] 4.8 10*3/uL 4.4-11.0 [facility] MR Abdomen WO and W contrast Verito [...] Notification of these findings was made to ALISSON MORTON via [employer] Chat on 12/24/2023 9:32 AM EST. Report Dictated on Electronically Signed By: Jovi Davis MD Electronically Signed Date/Time: 12/24/2023 9:33 AM EST [employer] [facility] Patient Name: RICARDO VILLALPANDO : 1940 Exam Date/Time: 12/20/2023 16:34 [...] study but measures at least 3.4 cm [facility] Jovi Davis MD - 12/24/2023 Patient Name: RICARDO VILLALPANDO : 1940 Exam Date/Time: 12/20/2023 16:34 [...] Notification of these findings was made to ALISSON MORTON via [employer] Secure Chat on 12/24/2023 9:32 AM EST. Report Dictated on Electronically Signed By: Jovi Davis MD Electronically Signed Date/Time: 12/24/2023 9:33 AM EST [facility] MR Abdomen WO and W contrast IVOrdered By: Jovi Davis on 12-24-2023 [facility] Work Phone: MR Abdomen WO and W contrast Verito 12-20-2023 Radiology Study observation (narrative) [facility] Chest PA and Lateralon 11-21 Chest PA and Lateral [facility] Imaging Services [address] [place] [address] Chest PA and Lateral MR#: [id number] Acct: [id number] Name: RICARDO VILLALPANDO Rep #: [id number] : [id number] F 83 From: Barak Cheema MD PCP: Alisson Morton DO Status: REG CLI Study: Chest PA and Lateral Date of Exam: 11/22/23 Exam# [id number] Ordering Dr: Erich Hernandez PA [id number] STUDY: X-RAY CHEST REASON FOR EXAM: Female, [...] Signed: Barak Cheema MD at 18:56 EDT , CC: Alisson Morton DO; MACK Abbott Associate Professor Of Communication: Signed Normal [facility] Urgent Care Visit Reporton 1 Urgent Care Visit Report [facility] [address] [place] [address] OFFICE VISIT Date of Service: 11/22/23 MR#: [id number] Acct: [id number] Name: RICARDO VILLALPANDO Rep #: [id number] : 1940 Provider: MACK Abbott Age/Sex: 83/F Location: [facility] Status: Signed Intake Vital Signs 07/30/23 [...] some bilateral swelling in her legs today. [facility] Medical History (Updated 11/22/23 @ 17:47 by [...] Paroxysmal atrial fibrillation Atherosclerotic heart disease of false pass coronary artery without angina pectoris Persistent atrial [...] Smoking Status: Never smoker HPI HPI Details: RICARDO VILLALPANDO, is a 83 F who presents [...] no acute distress Orientation: alert and awake [facility] Head: normal to inspection Ears: hearing [...] to inspection (more content not included)... Normal [facility] US ABDOMEN LIMITEDon US ABDOMEN LIMITED Patient Name: RICARDO VILLALPANDO : 1940 Exam Date/Time: 11/11/2023 09:18 [...] Electronically Signed Date/Time: 11/12/2023 7:[address] [facility] US Abdomen limitedon 1. Heterogeneous and echogenic liver suggesting hepatic [...] MD Electronically Signed Date/Time: 11/12/2023 7:58 AM T [facility] Patient Name: RICARDO VILLALPANDO : 1940 [id number] Exam Date/Time: 11/11/2023 09:18 Procedure: US ABDOMEN [...] mass or hydronephrosis. Ascites: Trace perihepatic ascites [facility] Jovi Davis MD - 11/12/2023 Patient Name: RICARDO VILLALPANDO : 1940 [id number] Exam Date/Time: 11/11/2023 09:18 Procedure: US ABDOMEN [...] Electronically Signed Date/Time: 11/12/2023 7:58 AM EDT [facility] US Abdomen limitedOrdered By : Jovi Davis on 11-12-2023 [facility] Work Phone: US Abdomen limitedon 024 Radiology Study observation (narrative) [facility] ECG 12 leadon 08-18-2023 NSR with PAC's Low voltage in limb leads. -Nonspecific T-abnormality. ABNORMAL [facility] Bacteria identified Cx Nom ( U)Ordered By: Fallon Lopez on 05-13-2023 Interpretation and review of laboratory results Normal [facility] Urine culture (clean catch)O rdered By: Fallon Lopez on 05-13-2023 Bacteria identified Cx Nom (U) Normal urogenital nayeli present [facility] Urinalysis complete panel (U )Ordered By: Antoine Cedeno on 05-11-2023 Bacteria LM.HPF (Urine sed) [#/Area] Moderate Abnormal Negative /HPF [facility] Bilirubin Ql (U) Negative Negative mg/dL [facility] Clarity (U) Clear Clear [facility] Color (U) Light Yellow Lt. Yellow [facility] Epithelial cells.squamous LM.HPF (Urine sed) [#/Area] Negative [facility] Glucose Ql (U) Normal Normal (<70) mg/dL [facility] Hemoglobin Ql (U) Negative Negative mg/dL [facility] Hyaline casts Auto (Urine sed) [#/Area] 6-10 Abnormal Negative /LPF [facility] Interpretation and review of laboratory results Abnormal [facility] Ketones (U) [Mass/Vol] Negative Negat brook mg/dL [facility] Leukocyte esterase Test strip Ql (U) 25 Abnormal Negative Xavier/uL [facility] Nitrite Ql (U) Negative Negative [facility] pH (U) 5.0 [pH] 5.0 - 8.0 pH [facility] Protein (U) [Mass/Vol] Negative Negat brook mg/dL [facility] RBC LM.HPF (Urine sed) [#/Area] Negative [facility] Specific gravity (U) [Rel density] 1.013 1.005 - 1.030 [facility] Urobilinogen (U) [Mass/Vol] Normal Normal (0-1) mg/dL [facility] Volume, Urine 12 mL [facility] WBC LM.HPF (Urine sed) [#/Area] 0-2 [facility] US Abdomenon 10-29-2022 1. Unremarkable postcholecystectomy ultrasound of the abdomen as discussed --- unchanged since prior study 4.5 months ago (heterogeneous echogenicity of the liver without focal lesions). Report Dictated on Electronically Signed By: Rufus Miller MD Electronically Signed Date/Time: 10/29/2022 4:15 PM EDT [facility] Patient Name: RICARDO VILLALPANDO : 1940 Exam Date/Time: 10/28/2022 09:48 [...] inferior vena cava are within normal limits. [facility] Rufus Miller MD - 10/29/2022 Patient Name: RICARDO VILLALPANDO : 1940 Exam Date/Time: 10/28/2022 09:48 [...] Electronically Signed Date/Time: 10/29/2022 4:15 PM EDT [facility] US AbdomenOrdered By: Jero Miller on 10-29-2022 [facility] Work Phone: US Abdomenon 10-28-2022 Radiology Study observation (narrative) [facility] Comprehensive metabolic 1998 panelon 09-24-2022 Albumin [Mass/Vol] 4.2 g/dL 3.5 - 5.0 g/dL [facility] ALP [Catalytic activity/Vol] 211 U/L High 38 - 126 U/L [facility] ALT [Catalytic activity/Vol] 82 U/L High 0 - 34 U/L [facility] Anion gap [Moles/Vol] 3 mmol/L 3 - 13 mmol/L [facility] AST [Catalytic activity/Vol] 103 U/L High 15 - 46 U/L [facility] Bilirubin [Mass/Vol] 0.4 mg/dL 0.2 - 1 .3 mg/dL [facility] Calcium [Mass/Vol] 9.5 mg/dL 8.4 - 10. 4 mg/dL [facility] Chloride [Moles/Vol] 106 mmol/L 98 - 10 7 mmol/L [facility] CO2 [Moles/Vol] 32 mmol/L High 22 - 30 mmol/L [facility] Creatinine [Mass/Vol] 0.85 mg/dL 0.52 - 1.04 mg/dL [facility] GFR/1.73 sq M.predicted MDRD (S/P/Bld) [Vol rate/Area] 69.8 mL/min/{1.73_m2} - PINF [facility] Comment on above: Calculation based on the Chronic Kidney Disease Epidemiology Collaboration (CKD-EPI) equation refit without adjustment for race Glucose [Mass/Vol] 108 mg/dL High 70 - 100 mg/dL [facility] Potassium [Moles/Vol] 4.2 mmol/L 3.5 - 5.1 mmol/L [facility] Protein [Mass/Vol] 8.5 g/dL High 6.3 - 8.2 g/dL [facility] Sodium [Moles/Vol] 142 mmol/L 135 - 145 mmol/L [facility] Urea nitrogen [Mass/Vol] 18 mg/dL High 7 - 17 mg/dL [facility] Lipid 1995 panelon 3 Cholesterol [Mass/Vol] 143 mg/dL NINF - 200 mg/dL [facility] Cholesterol in HDL [Mass/Vol] 61 mg/dL High 40 - 60 mg/dL [facility] Cholesterol in LDL [Mass/Vol] 73 mg/dL 0 - <100 [facility] Cholesterol.total/Chol esterol in HDL [Mass ratio] 2 {ratio} [facility] Comment on above: Ref Range: < 3 Low Risk for CHD 3-6 Mod Risk for CHD > 6 High Risk for CHD Triglyceride [Mass/Vol] 45 mg/dL NINF - 150 mg/dL [facility] No Panel Informationon 09-24 Interpretation and review of laboratory results Abnormal [facility] Basic metabolic 1997 panelon 09-14-2022 Anion gap [Moles/Vol] 8 mmol/L 3 - 13 mmol/L [facility] Calcium [Mass/Vol] 9.2 mg/dL 8.4 - 10. 4 mg/dL [facility] Chloride [Moles/Vol] 102 mmol/L 98 - 10 7 mmol/L [facility] CO2 [Moles/Vol] 31 mmol/L High 22 - 30 mmol/L [facility] Creatinine [Mass/Vol] 0.92 mg/dL 0.52 - 1.04 mg/dL [facility] GFR/1.73 sq M.predicted MDRD (S/P/Bld) [Vol rate/Area] 63.5 mL/min/{1.73_m2} - PINF [facility] Comment on above: Calculation based on the Chronic Kidney Disease Epidemiology Collaboration (CKD-EPI) equation refit without adjustment for race Glucose [Mass/Vol] 139 mg/dL High 70 - 100 mg/dL [facility] Interpretation and review of laboratory results Abnormal [facility] Potassium [Moles/Vol] 4.1 mmol/L 3.5 - 5.1 mmol/L [facility] Sodium [Moles/Vol] 140 mmol/L 135 - 145 mmol/L [facility] Urea nitrogen [Mass/Vol] 23 mg/dL High 7 - 17 mg/dL [facility] No Panel Informationon 08-25 [facility] Absolute lymphocyte countOrd ered By: Anabel Duvall on 07-09-2022 Lymphocytes Auto (Unsp spec) [#/Vol] 1.56 10*3/uL 0.83-4.51 [facility] Basophil percentageOrdered B y: Anabel Duvall on 07-09-2022 Basophils/100 WBC (Bld) 1.2 % 0-1 [facility] Chloride [Moles/Vol] 111 mmol/L 98-[address] [facility] [address] [facility] Eosinophils/100 WBC (Bld) 3.2 % 0-5 [facility] Glucose [Mass/Vol] 115 mg/dL 74-106 [facility] Comment on above: Fasting Glucose resu lt from 100 to 125 mg/dL suggests IMPAIRED HOMEOSTASIS per A.D.A. criteria. Neutrophils (Bld) [#/Vol] 2.8 10*3/uL 2.0-7.7 [facility] Neutrophils/100 WBC (Bld) 56.0 % 47-70 [facility] Potassium [Moles/Vol] 4.3 mmol/L 3.5-5.1 [facility] Sodium [Moles/Vol] 144 mmol/L 136-145 [facility] WBC (Bld) [#/Vol] 5.1 10*3/uL 4.4-11.0 [facility] Blood erythrocytes count (nu mber/volume)Ordered By: Anabel Duvall on 07-09-2022 RBC (Bld) [#/Vol] 3.60 10*6/uL 4.2-5.4 [facility] Blood hemoglobin measurement (mass/volume)Ordered By: Anabel Duvall on 07-09-2022 Hemoglobin (Bld) [Mass/Vol] 10.0 g/dL 12.0-15.0 [facility] Blood lymphocytes/100 leukoc ytesOrdered By: Anabel Duvall on 07-09-2022 Lymphocytes/100 WBC (Bld) 30.9 % 19-41 [facility] Blood monocytes/100 leukocyt esOrdered By: Anabel Duvall on 07-09-2022 Monocytes/100 WBC (Bld) 8.5 % 0-10 [facility] Blood platelet mean volumeOr dered By: Anabel Duvall on 07-09-2022 Platelet mean volume (Bld) [Entitic vol] 12.2 fL 6.2-12.0 [facility] Determination of erythrocyte mean corpuscular volume (MCV)Ordered By: Anabel Duvall on 07-09-2022 MCV (RBC) [Entitic vol] 91.1 fL 81-99 [facility] Hematocrit Auto (Bld) [Volum e fraction]Ordered By: Anabel Duvall on 07-09-2022 Hematocrit (Bld) [Volume fraction] 32.8 % 37-47 [facility] Laboratory - Chemistry and C hemistry - challengeOrdered By: Anabel Duvall on 07-09-2022 CO2 [Moles/Vol] 31.0 mmol/L 21.0-32.0 [facility] Urea nitrogen/Creatinine [Mass ratio] 35.1 mg/mg 10-20 [facility] - Hematology and Cell countsOrdered By: Anabel Duvall on 07-09-2022 Erythrocyte distribution width (RBC) [Entitic vol] 62.8 fL 35.1-43.9 [facility] Erythrocyte distribution width (RBC) [Ratio] 19.1 % 11.6-14.6 [facility] Immature granulocytes/100 WBC (Bld) 0.200 % 0.0-0.9 [facility] Comment on above: IG% - Immature Granu locytes (promyelocytes, myelocytes and metamyelocytes) > 1% indicates that a LEFT SHIFT is Present. MCH (RBC) [Entitic mass] 27.8 pg 27.0-32.0 [facility] Nucleated RBC/100 WBC (Bld) [Ratio] 0 % 0-5 [facility] MCHC Auto (RBC) [Mass/Vol]Or dered By: Anabel Duvall on 07-09-2022 MCHC (RBC) [Mass/Vol] 30.5 g/dL 32-36 [facility] No Panel InformationOrdered By: Anabel Duvall on 07-09-2022 Estimated GFR (MDRD) Amer 82 mL/min >60 [facility] Comment on above: GFR Calc Estimated GFR (MDRD) Non-Af Amer 68 mL/min >60 [facility] Comment on above: Non- GFR Calc Platelets bldOrdered By: Shan Duvall on 07-09-2022 Platelets (Bld) [#/Vol] 207 10*3/uL 150-450 [facility] Serum or plasma calcium blanco urement (mass/volume)Ordered By: Anabel Duvall on 07-09-2022 Calcium [Mass/Vol] 8.7 mg/dL 8.5-10.1 [facility] Serum or plasma creatinine m easurement (mass/volume)Ordered By: Anabel Duvall on 07-09-2022 Creatinine [Mass/Vol] 0.85 mg/dL 0.55-1.02 [facility] Comment on above: The validity of the calculated GFR & GFRAA in patients over 70 years has not been determined. Clinical correlation is essential. Serum or plasma urea nitroge n measurement (mass/volume)Ordered By: Cihnojulijono Duvall on 07-09-2022 Urea nitrogen [Mass/Vol] 30 mg/dL 7-18 [facility] Thin prep Papanicolaou smear with manual screeningOrdered By: kunolesya Eloina on 07-09-2022 Thin prep Papanicolaou smear with manual screening 2 5-15 [facility] Basophil percentageOrdered B y: Fallon Mcclendon on 06-26-2022 Ammonia (P) [Moles/Vol] 27.0 umol/L 11-32 [facility] Absolute lymphocyte countOrd ered By: kunjacksonjono Duvall on 06-25-2022 Lymphocytes Auto (Unsp spec) [#/Vol] 1.27 10*3/uL 0.83-4.51 [facility] Basophil percentageOrdered B y: Lunakunjulijono Maddengracejuana on 06-25-2022 Basophils/100 WBC (Bld) 0.9 % 0-1 [facility] Bilirubin [Mass/Vol] 0.40 mg/dL 0.20-1.00 [facility] Comment on above: For patients on eltr ombopag therapy, use of Dimension [place] TBIL is not recommended. Chloride [Moles/Vol] 111 mmol/L 98-107 [facility] Eosinophils/100 WBC (Bld) 2.0 % 0-5 [facility] Glucose [Mass/Vol] 122 mg/dL 74-106 [facility] Comment on above: Fasting Glucose resu lt from 100 to 125 mg/dL suggests IMPAIRED HOMEOSTASIS per A.D.A. criteria. Neutrophils (Bld) [#/Vol] 4.4 10*3/uL 2.0-7.7 [facility] Neutrophils/100 WBC (Bld) 69.0 % 47-70 [facility] Potassium [Moles/Vol] 3.7 mmol/L 3.5-5.1 [facility] Protein [Mass/Vol] 6.7 g/dL 6.4-8.2 [facility] Sodium [Moles/Vol] 146 mmol/L 136-145 [facility] WBC (Bld) [#/Vol] 6.4 10*3/uL 4.4-11.0 [facility] Blood erythrocytes count (nu mber/volume)Ordered By: Anabel Duvall on 06-25-2022 RBC (Bld) [#/Vol] 3.33 10*6/uL 4.2-5.4 [facility] Blood hemoglobin measurement (mass/volume)Ordered By: Anabel Duvall on 06-25-2022 Hemoglobin (Bld) [Mass/Vol] 9.2 g/dL 12.0-15.0 [facility] Blood lymphocytes/100 leukoc ytesOrdered By: kunjacksonjono Duvall on 06-25-2022 Lymphocytes/100 WBC (Bld) 19.8 % 19-41 [facility] Blood monocytes/100 leukocyt esOrdered By: [facility] Duvall on 06-25-2022 Monocytes/100 WBC (Bld) 8.1 % 0-10 [facility] Blood platelet mean volumeOr dered By: kunjacksonjono Duvall on 06-25-2022 Platelet mean volume (Bld) [Entitic vol] 11.9 fL 6.2-12.0 [facility] Determination of erythrocyte mean corpuscular volume (MCV)Ordered By: Anabel Duvall on 06-25-2022 MCV (RBC) [Entitic vol] 89.2 fL 81-99 [facility] Hematocrit Auto (Bld) [Volum e fraction]Ordered By: Anabel Duvall on 06-25-2022 Hematocrit (Bld) [Volume fraction] 29.7 % 37-47 [facility] Laboratory - Chemistry and C hemistry - challengeOrdered By: Anabel Duvall on 06-25-2022 ALP [Catalytic activity/Vol] 240 U/L 45-117 [facility] ALT [Catalytic activity/Vol] 132 U/L 13-56 [facility] CO2 [Moles/Vol] 30.0 mmol/L 21.0-32.0 [facility] Globulin (S) [Mass/Vol] 4.3 g/dL 2.2-4.2 [facility] Urea nitrogen/Creatinine [Mass ratio] 27.6 mg/mg 10-20 [facility] Laboratory - Hematology and Cell countsOrdered By: Anabel Duvall on 06-25-2022 Erythrocyte distribution width (RBC) [Entitic vol] 53.0 fL 35.1-43.9 [facility] Erythrocyte distribution width (RBC) [Ratio] 17.0 % 11.6-14.6 [facility] Immature granulocytes/100 WBC (Bld) 0.200 % 0.0-0.9 [facility] Comment on above: IG% - Immature Granu locytes (promyelocytes, myelocytes and metamyelocytes) > 1% indicates that a LEFT SHIFT is Present. MCH (RBC) [Entitic mass] 27.6 pg 27.0-32.0 [facility] Nucleated RBC/100 WBC (Bld) [Ratio] 0 % 0-5 [facility] MCHC Auto (RBC) [Mass/Vol]Or dered By: Anabel Duvall on 06-25-2022 MCHC (RBC) [Mass/Vol] 31.0 g/dL 32-36 [facility] No Panel InformationOrdered By: Anabel Duvall on 06-25-2022 Estimated GFR (MDRD) Amer 81 mL/min >60 [facility] Comment on above: GFR Calc Estimated GFR (MDRD) Non-Af Amer 67 mL/min >60 [facility] Comment on above: Non- GFR Calc Platelets bldOrdered By: Shan Duvall on 06-25-2022 Platelets (Bld) [#/Vol] 216 10*3/uL 150-450 [facility] Serum or plasma albumin blanco urement (mass/volume)Ordered By: Anabel Duvall on 06-25-2022 Albumin [Mass/Vol] 2.4 g/dL 3.2-5.0 [facility] Serum or plasma albumin/glob ulin mass ratioOrdered By: Anabel Duvall on 06-25-2022 Albumin/Globulin [Mass ratio] 0.6 {ratio} 0.9-2.4 [facility] Serum or plasma calcium blanco urement (mass/volume)Ordered By: Anabel Duvall on 06-25-2022 Calcium [Mass/Vol] 8.0 mg/dL 8.5-10.1 [facility] Serum or plasma creatinine m easurement (mass/volume)Ordered By: Anabel Duvall on 06-25-2022 Creatinine [Mass/Vol] 0.87 mg/dL 0.55-1.02 [facility] Comment on above: The validity of the calculated GFR & GFRAA in patients over 70 years has not been determined. Clinical correlation is essential. Serum or plasma urea nitroge n measurement (mass/volume)Ordered By: Anabel Duvall on 06-25-2022 Urea nitrogen [Mass/Vol] 24 mg/dL 08-25 [facility] Thin prep Papanicolaou smear with manual screeningOrdered By: Anabel Duvall on 06-25-2022 Thin prep Papanicolaou smear with manual screening 163 U/L [facility] Thin prep Papanicolaou smear with manual screening 5 06-22 [facility] Whole blood hemoglobin A1c/t otal hemoglobin ratio (mass fraction)Ordered By: Anabel Duvall on 06-25-2022 HbA1c (Bld) [Mass fraction] 5.7 % 3.8-5.6 [facility] Comment on above: Normal < 5.7 % Predi abetic 5.7 - 6.4 % Diabetic >or= 6.5 % Please note range changes. CBC panel Auto (Bld)Ordered By: Zack Hastings on 06-16-2022 Erythrocyte distribution width (RBC) [Ratio] 14.9 % High 11.5 - 14.5 % [facility] Hematocrit (Bld) [Volume fraction] 28.0 % Low 35.0 - 47.0 % [facility] Hemoglobin (Bld) [Mass/Vol] 9.4 g/dL Low 11.7 - 16.0 g/dL [facility] Interpretation and review of laboratory results Abnormal [facility] MCH (RBC) [Entitic mass] 27.3 pg 26.0 - 34.0 pg [facility] MCHC (RBC) [Mass/Vol] 33.5 % 32.0 - 36.0 % [facility] MCV (RBC) [Entitic vol] 81.5 fL 80.0 - 98.0 fL [facility] Platelet mean volume (Bld) [Entitic vol] 8.7 fL 7.4 - 12.4 fL [facility] Platelets (Bld) [#/Vol] 166 10*3/uL 140 - 440 10*3/uL [facility] RBC (Bld) [#/Vol] 3.44 10*6/uL Low 3.8 - 5.20 10*6/uL [facility] WBC (Bld) [#/Vol] 6.3 10*3/uL 3.6 - 10.7 10*3/uL [facility] Comprehensive metabolic 1998 panelon 06-16-2022 Albumin [Mass/Vol] 2.7 g/dL Low 3.5 - 5.0 g/dL [facility] ALP [Catalytic activity/Vol] 156 U/L High 38 - 126 U/L [facility] ALT [Catalytic activity/Vol] 140 U/L High 0 - 34 U/L [facility] Anion gap [Moles/Vol] 0 mmol/L Low 3 - 13 mmol/L [facility] AST [Catalytic activity/Vol] 167 U/L High 15 - 46 U/L [facility] Bilirubin [Mass/Vol] 0.2 mg/dL 0.2 - 1 .3 mg/dL [facility] Calcium [Mass/Vol] 7.5 mg/dL Low 8.4 - 10. 4 mg/dL [facility] Chloride [Moles/Vol] 108 mmol/L High 98 - 10 7 mmol/L [facility] CO2 [Moles/Vol] 29 mmol/L 22 - 30 mmol/L [facility] Creatinine [Mass/Vol] 0.77 mg/dL 0.52 - 1.04 mg/dL [facility] GFR/1.73 sq M.predicted MDRD (S/P/Bld) [Vol rate/Area] 78.6 mL/min/{1.73_m2} - PINF [facility] Comment on above: Calculation based on the Chronic Kidney Disease Epidemiology Collaboration (CKD-EPI) equation refit without adjustment for race Glucose [Mass/Vol] 92 mg/dL 70 - 100 mg/dL [facility] Interpretation and review of laboratory results Abnormal [facility] Potassium [Moles/Vol] 3.2 mmol/L Low 3.5 - 5.1 mmol/L [facility] Protein [Mass/Vol] 6.4 g/dL 6.3 - 8.2 g/dL [facility] Sodium [Moles/Vol] 138 mmol/L 135 - 145 mmol/L [facility] Urea nitrogen [Mass/Vol] 21 mg/dL High 7 - 17 mg/dL [facility] Laboratory - Microbiology an d Antimicrobial susceptibilityOrdered By: Hazel Harrison on 06-16-2022 SARS-CoV-2 (COVID-19) Ag IA.rapid Ql (Resp) Negative Negative [facility] Comment on above: A negative result do es not rule out the possibility of SARS-CoV-2 infection. NAAT-based methods should be considered for symptomatic patients presenting greater than seven days after onset of symptoms. Method: Lateral flow immunoassay. Fact sheets for healthcare providers and patients can be found at the following sites: https://www.[employer].gov/media/544683/download https://www.[employer].gov/media/641630/download SARS-CoV-2 (COVID-19) Ag IA. rapid Ql (Resp)Ordered By: Hazel Harrison on 06-16-2022 Interpretation and review of laboratory results Normal [facility] CBC panel Auto (Bld)Ordered By: Kayla Lira on 06-15-2022 Erythrocyte distribution width (RBC) [Ratio] 14.3 % 11.5 - 14.5 % [facility] Hematocrit (Bld) [Volume fraction] 27.5 % Low 35.0 - 47.0 % [facility] Hemoglobin (Bld) [Mass/Vol] 9.1 g/dL Low 11.7 - 16.0 g/dL [facility] Interpretation and review of laboratory results Abnormal [facility] MCH (RBC) [Entitic mass] 27.4 pg 26.0 - 34.0 pg [facility] MCHC (RBC) [Mass/Vol] 33.3 % 32.0 - 36.0 % [facility] MCV (RBC) [Entitic vol] 82.4 fL 80.0 - 98.0 fL [facility] Platelet mean volume (Bld) [Entitic vol] 9.1 fL 7.4 - 12.4 fL [facility] Platelets (Bld) [#/Vol] 165 10*3/uL 140 - 440 10*3/uL [facility] RBC (Bld) [#/Vol] 3.34 10*6/uL Low 3.8 - 5.20 10*6/uL [facility] WBC (Bld) [#/Vol] 6.1 10*3/uL 3.6 - 10.7 10*3/uL [facility] Comprehensive metabolic 1998 panelon 06-15-2022 Albumin [Mass/Vol] 2.6 g/dL Low 3.5 - 5.0 g/dL [facility] ALP [Catalytic activity/Vol] 221 U/L High 38 - 126 U/L [facility] ALT [Catalytic activity/Vol] 136 U/L High 0 - 34 U/L [facility] Anion gap [Moles/Vol] 2 mmol/L Low 3 - 13 mmol/L [facility] AST [Catalytic activity/Vol] 189 U/L High 15 - 46 U/L [facility] Bilirubin [Mass/Vol] 0.2 mg/dL 0.2 - 1 .3 mg/dL [facility] Calcium [Mass/Vol] 7.5 mg/dL Low 8.4 - 10. 4 mg/dL [facility] Chloride [Moles/Vol] 107 mmol/L 98 - 10 7 mmol/L [facility] CO2 [Moles/Vol] 27 mmol/L 22 - 30 mmol/L [facility] Creatinine [Mass/Vol] 0.87 mg/dL 0.52 - 1.04 mg/dL [facility] GFR/1.73 sq M.predicted MDRD (S/P/Bld) [Vol rate/Area] 67.9 mL/min/{1.73_m2} - PINF [facility] Comment on above: Calculation based on the Chronic Kidney Disease Epidemiology Collaboration (CKD-EPI) equation refit without adjustment for race Glucose [Mass/Vol] 111 mg/dL High 70 - 100 mg/dL [facility] Interpretation and review of laboratory results Abnormal [facility] Potassium [Moles/Vol] 3.5 mmol/L 3.5 - 5.1 mmol/L [facility] Protein [Mass/Vol] 6.0 g/dL Low 6.3 - 8.2 g/dL [facility] Sodium [Moles/Vol] 137 mmol/L 135 - 145 mmol/L [facility] Urea nitrogen [Mass/Vol] 21 mg/dL High 7 - 17 mg/dL [facility] Ferritin [Mass/Vol]on 2022 Interpretation and review of laboratory results Normal [facility] Iron and Iron binding capaci ty panelon 06-15-2022 Interpretation and review of laboratory results Abnormal [facility] Iron [Mass/Vol] 23 ug/dL Low 37 - 170 ug/dL [facility] Iron binding capacity [Mass/Vol] 330 ug/dL 261 - 497 ug/dL [facility] [employer] Iron saturation [Mass fraction] 7 % Low 15 - 50 % [facility] Laboratory - Chemistry and C hemistry - challengeon 06-15-2022 Ferritin [Mass/Vol] 20 ng/mL 11 - 264 ng/mL [facility] No Panel InformationOrdered By: Rajat Swanson on 06-15-2022 P [place] 89 degrees [employer] Work Phone: [phone] NM Interval 177 ms [employer] Phone: [phone] QRS [place] -20 degrees [employer] Work Phone: [phone] QRSD Interval 90 ms [employer] Phone: [phone] QT Interval 438 ms [employer] Phone: [phone] QTC Interval 481 ms [employer] Phone: [phone] T Wave [place] 39 degrees [employer] Work Phone: [phone] [employer] Work Phone: [phone] No Panel Informationon 06-15 Sinus rhythm Atrial [...] On 06-15-2022 2:53:31 EDT by Rajat Swanson [facility] US Abdomen limitedon 023 Nonspecific coarsene d heterogeneous echotexture of the liver without focal lesion identified. Correlation with LFTs is recommended. Trace ascites. Report Dictated on Electronically Signed By: Seymour Bragg Electronically Signed Date/Time: 06/15/2022 8:48 AM EDT [facility] Patient Name: RICARDO VILLALPANDO : 1940 Exam Date/Time: 06/15/2022 06:51 [...] Right kidney: No pelvicalyceal dilatation Ascites: Trace [facility] Seymour Bragg MD - 06/15/2022 Patient Name: RICARDO VILLALPANDO : 1940 Exam Date/Time: 06/15/2022 06:51 [...] Electronically Signed Date/Time: 06/15/2022 8:48 AM EDT [facility] [employer] Radiology Study observation (narrative) [facility] US Abdomen limitedOrdered By : Seymour Bragg on 06-15-2022 [employer] Work Phone: Vital signsOrdered By: Ivet Swanson on 06-15-2022 Heart rate 73 /min bpm [facility] [employer] Work Phone: CBC W Auto Differential pane l (Bld)Ordered By: Cristiane Womack on 06-14-2022 Basophils (Bld) [#/Vol] 0.0 10*3/uL 0.0 - 0.2 10*3/uL [facility] Basophils/100 WBC (Bld) 0.4 % 0.0 - 2.0 % [facility] Eosinophils (Bld) [#/Vol] 0.1 10*3/uL 0.0 - 0.5 10*3/uL [facility] Eosinophils/100 WBC (Bld) 1.8 % 1.0 - 6.0 % [facility] Erythrocyte distribution width (RBC) [Ratio] 14.4 % 11.5 - 14.5 % [facility] Hematocrit (Bld) [Volume fraction] 27.0 % Low 35.0 - 47.0 % [facility] Hemoglobin (Bld) [Mass/Vol] 8.9 g/dL Low 11.7 - 16.0 g/dL [facility] Interpretation and review of laboratory results Abnormal [facility] Lymphocytes (Bld) [#/Vol] 1.1 10*3/uL 1.0 - 4.3 10*3/uL [facility] Lymphocytes/100 WBC (Bld) 25.1 % 20.0 - 40.0 % [facility] MCH (RBC) [Entitic mass] 26.8 pg 26.0 - 34.0 pg [facility] MCHC (RBC) [Mass/Vol] 32.8 % 32.0 - 36.0 % [facility] MCV (RBC) [Entitic vol] 81.7 fL 80.0 - 98.0 fL [facility] Monocytes (Bld) [#/Vol] 0.3 10*3/uL 0.0 - 0.8 10*3/uL [facility] Monocytes/100 WBC (Bld) 6.5 % 2.0 - 10.0 % [facility] Neutrophils (Bld) [#/Vol] 3.0 10*3/uL 1.8 - 7.0 10*3/uL [facility] Neutrophils/100 WBC (Bld) 66.2 % 40.0 - 80.0 % [facility] Nucleated RBC/100 WBC (Bld) [Ratio] 0.0 % [facility] Platelet mean volume (Bld) [Entitic vol] 8.8 fL 7.4 - 12.4 fL [facility] Platelets (Bld) [#/Vol] 171 10*3/uL 140 - 440 10*3/uL [facility] RBC (Bld) [#/Vol] 3.31 10*6/uL Low 3.8 - 5.20 10*6/uL [facility] WBC (Bld) [#/Vol] 4.6 10*3/uL 3.6 - 10.7 10*3/uL [facility] Comprehensive metabolic 1998 panelon 06-14-2022 Albumin [Mass/Vol] 2.7 g/dL Low 3.5 - 5.0 g/dL [facility] ALP [Catalytic activity/Vol] 141 U/L High 38 - 126 U/L [facility] ALT [Catalytic activity/Vol] 152 U/L High 0 - 34 U/L [facility] Anion gap [Moles/Vol] 1 mmol/L Low 3 - 13 mmol/L [facility] AST [Catalytic activity/Vol] 218 U/L High 15 - 46 U/L [facility] Bilirubin [Mass/Vol] 0.3 mg/dL 0.2 - 1 .3 mg/dL [facility] Calcium [Mass/Vol] 8.1 mg/dL Low 8.4 - 10. 4 mg/dL [facility] Chloride [Moles/Vol] 107 mmol/L 98 - 10 7 mmol/L [facility] CO2 [Moles/Vol] 30 mmol/L 22 - 30 mmol/L [facility] Creatinine [Mass/Vol] 0.78 mg/dL 0.52 - 1.04 mg/dL [facility] GFR/1.73 sq M.predicted MDRD (S/P/Bld) [Vol rate/Area] 77.4 mL/min/{1.73_m2} - PINF [facility] Comment on above: Calculation based on the Chronic Kidney Disease Epidemiology Collaboration (CKD-EPI) equation refit without adjustment for race Glucose [Mass/Vol] 91 mg/dL 70 - 100 mg/dL [facility] Interpretation and review of laboratory results Abnormal [facility] Potassium [Moles/Vol] 3.6 mmol/L 3.5 - 5.1 mmol/L [facility] Protein [Mass/Vol] 6.4 g/dL 6.3 - 8.2 g/dL [facility] Sodium [Moles/Vol] 138 mmol/L 135 - 145 mmol/L [facility] Urea nitrogen [Mass/Vol] 22 mg/dL High 7 - 17 mg/dL [facility] Laboratory - Chemistry and C hemistry - challengeon 06-14-2022 Lactate [Moles/Vol] 0.7 mmol/L 0.7 - 2. 0 mmol/L [facility] No Panel Informationon 06-14 Interpretation and review of laboratory results Normal [facility] Acetaminophen [Mass/Vol]on 0 06-13-2022 Interpretation and review of laboratory results Abnormal [facility] CBC W Auto Differential pane l (Bld)Ordered By: Adela Giron on 06-13-2022 Basophils (Bld) [#/Vol] 0.0 10*3/uL 0.0 - 0.2 10*3/uL [facility] Basophils/100 WBC (Bld) 0.5 % 0.0 - 2.0 % [facility] Eosinophils (Bld) [#/Vol] 0.0 10*3/uL 0.0 - 0.5 10*3/uL [facility] Eosinophils/100 WBC (Bld) 0.5 % Low 1.0 - 6.0 % [facility] Erythrocyte distribution width (RBC) [Ratio] 14.6 % High 11.5 - 14.5 % [facility] Hematocrit (Bld) [Volume fraction] 28.7 % Low 35.0 - 47.0 % [facility] Hemoglobin (Bld) [Mass/Vol] 9.5 g/dL Low 11.7 - 16.0 g/dL [facility] Interpretation and review of laboratory results Abnormal [facility] Lymphocytes (Bld) [#/Vol] 1.3 10*3/uL 1.0 - 4.3 10*3/uL [facility] Lymphocytes/100 WBC (Bld) 19.0 % Low 20.0 - 40.0 % [facility] MCH (RBC) [Entitic mass] 26.9 pg 26.0 - 34.0 pg [facility] MCHC (RBC) [Mass/Vol] 33.0 % 32.0 - 36.0 % [facility] MCV (RBC) [Entitic vol] 81.7 fL 80.0 - 98.0 fL [facility] Monocytes (Bld) [#/Vol] 0.3 10*3/uL 0.0 - 0.8 10*3/uL [facility] Monocytes/100 WBC (Bld) 5.0 % 2.0 - 10.0 % [facility] Neutrophils (Bld) [#/Vol] 5.2 10*3/uL 1.8 - 7.0 10*3/uL [facility] Neutrophils/100 WBC (Bld) 75.0 % 40.0 - 80.0 % [facility] Nucleated RBC/100 WBC (Bld) [Ratio] 0.0 % [facility] Platelet mean volume (Bld) [Entitic vol] 9.2 fL 7.4 - 12.4 fL [facility] Platelets (Bld) [#/Vol] 188 10*3/uL 140 - 440 10*3/uL [facility] RBC (Bld) [#/Vol] 3.51 10*6/uL Low 3.8 - 5.20 10*6/uL [facility] WBC (Bld) [#/Vol] 6.9 10*3/uL 3.6 - 10.7 10*3/uL [facility] CT Head WO contraston 2022 1. No acute intracranial findings. 2. Probable chronic ischemic and atrophic changes. Report Dictated on Electronically Signed By: Niko Talley Electronically Signed Date/Time: 06/13/2022 3:16 PM [facility] Patient Name: RICARDO VILLALPANDO : 1940 [id number] Exam Date/Time: 06/13/2022 15:08 Procedure: CT HEAD [...] diffuse volume loss. Osseous calvarium grossly intact. [facility] Niko Talley MD - 06/13/2022 Patient Name: RICARDO VILLALPANDO : 1940 [id number] Exam Date/Time: 06/13/2022 15:08 Procedure: CT HEAD [...] Electronically Signed Date/Time: 06/13/2022 3:16 PM EDT [facility] Radiology Study observation (narrative) [facility] CT Head WO contrastOrdered B y: Niko Talley on 06-13-2022 [employer] Work Phone: Comprehensive metabolic 1998 panelon 05-06-2023 Albumin [Mass/Vol] 3.4 g/dL Low 3.5 - 5.0 g/dL [facility] ALP [Catalytic activity/Vol] 176 U/L High 38 - 126 U/L [facility] ALT [Catalytic activity/Vol] 185 U/L High 0 - 34 U/L [facility] Anion gap [Moles/Vol] 3 mmol/L 3 - 13 mmol/L [facility] AST [Catalytic activity/Vol] 311 U/L High 15 - 46 U/L [facility] Bilirubin [Mass/Vol] 0.5 mg/dL 0.2 - 1 .3 mg/dL [facility] Calcium [Mass/Vol] 8.7 mg/dL 8.4 - 10. 4 mg/dL [facility] Chloride [Moles/Vol] 104 mmol/L 98 - 10 7 mmol/L [facility] CO2 [Moles/Vol] 27 mmol/L 22 - 30 mmol/L [facility] Creatinine [Mass/Vol] 0.80 mg/dL 0.52 - 1.04 mg/dL [facility] GFR/1.73 sq M.predicted MDRD (S/P/Bld) [Vol rate/Area] 75.1 mL/min/{1.73_m2} - PINF [facility] Comment on above: Calculation based on the Chronic Kidney Disease Epidemiology Collaboration (CKD-EPI) equation refit without adjustment for race Glucose [Mass/Vol] 114 mg/dL High 70 - 100 mg/dL [facility] Interpretation and review of laboratory results Abnormal [facility] Potassium [Moles/Vol] 3.7 mmol/L 3.5 - 5.1 mmol/L [facility] Protein [Mass/Vol] 7.5 g/dL 6.3 - 8.2 g/dL [facility] Sodium [Moles/Vol] 134 mmol/L Low 135 - 145 mmol/L [facility] Urea nitrogen [Mass/Vol] 26 mg/dL High 7 - 17 mg/dL [facility] Fibrin D-dimer FEU (PPP) [Ma ss/Vol]on 06-13-2022 Interpretation and review of laboratory results [facility] lues of <0.50 mg/L FEU can be used in combination with a pre-test probability model (e.g. Well's) to exclude pulmonary embolism (PE) disease, as well as an aid in the diagnosis of deep vein thrombosis (DVT). [facility] Hepatitis 1996 panel (S)on 0 06-13-2022 HAV IgM IA Ql Not detected Not Detected [facility] HBV core IgM IA Ql Not detected Not Detected [facility] HBV surface Ag IA Ql Not detected Not Detected [facility] HCV Ab IA Ql Not detected Not Detected [facility] Comment on above: Patients with DETECT ED Hepatitis C Ab results should have a new specimen submitted for supplemental testing with a Hepatitis C Quantitative RNA assay (viral load), if clinically indicated. Interpretation and review of laboratory results Normal [facility] Laboratory - Chemistry and C hemistry - challengeon 06-13-2022 TSH Qn 3.546 m[IU]/L [facility] Glucose [Mass/Vol] 114 mg/dL [facility] Troponin I.cardiac [Mass/Vol] ng/mL 0.000 - 0.034 ng/mL [facility] Laboratory - Chemistry and C hemistry - challengeOrdered By: Aylin Del Rosario on 06-13-2022 Lactate [Moles/Vol] 2.2 mmol/L Critically high 0.7 - 2.0 mmol/L [facility] Laboratory - Coagulationon 0 06-13-2022 Fibrin D-dimer FEU (PPP) [Mass/Vol] mg/L NINF - 0.50 mg/L [facility] PT Coag (Bld) [Time] 11.6 s 9.0 - 12.0 s [facility] Laboratory - Drug toxicology on 06-13-2022 Acetaminophen [Mass/Vol] ug/mL Low 10.0 - 30.0 ug/mL [facility] Natriuretic peptide B [Mass/ Vol]on 06-13-2022 Interpretation and review of laboratory results Abnormal [facility] Natriuretic peptide B (Bld) [Mass/Vol] 575 pg/mL High <20 - 300 [facility] No Panel Informationon 06-13 Interpretation and review of laboratory results Normal [facility] [place] <50% stenosis in the right internal carotid [...] Artery: Normal. Elevated velocities in subclavian artery Trip Follower Details A choudhary scale, color Doppler imaging and spectral Doppler analysis ultrasound was performed. During the study longitudinal and transverse views were obtained. Pulsed wave doppler was performed. The exam was performed with the patient in the supine position. Overall the study quality was good. CV CPACS No Panel InformationOrdered By: Aylin Del Rosario on 06-13-2022 Interpretation and review of laboratory results Abnormal 9+ No Panel InformationOrdered By: Any Palomino on 06-13-2022 Left CCA dist EDV 8.1 cm/s [employer] Phone: Left CCA dist PSV 75.4 cm/s [employer] Phone: Left CCA mid EDV 9.30 cm/s [employer] Phone: Left CCA mid PSV 92.60 cm/s [employer] Phone: Left CCA prox EDV 17.9 cm/s [employer] Phone: Left CCA prox PSV 119.5 cm/s [employer] Phone: Left ECA EDV 0.00 cm/s [employer] Phone: Left ECA PSV 74.6 cm/s [employer] Phone: Left ICA dist EDV 17.0 cm/s [employer] Phone: Left ICA dist PSV 74.6 cm/s [employer] Phone: Left ICA mid EDV 13.3 cm/s [...] Phone: Right CCA prox PSV 80.4 cm/s [facility] Work Phone: Right ECA EDV 8.90 cm/s [facility] Work Phone: Right ECA PSV 106.9 cm/s [employer] Work Phone: Right ICA dist EDV 15.3 cm/s [employer] Work Phone: Right ICA dist PSV 71.9 cm/s [employer] Work Phone: Right ICA mid EDV 20.4 cm[facility]: Right ICA mid PSV 80.9 cm/s [facility] Phone: Right ICA prox EDV 13.1 cm/s [employer] Work Phone: Right ICA prox PSV 62.5 cm/s [employer] Work Phone: Right ICA/CCA PSV 0.93 [employer] Work Phone: Right subclavian mid EDV 1.3 cm/s [facility] Phone: Right subclavian mid PSV 122.2 cm/s [employer] Work Phone: Right vertebral EDV 9.50 cm/s [employer] Work Phone: Right vertebral PSV 66.6 cm/s [employer] Work Phone: PT Coag (Bld) [Time]on 06-13 INR Coag (PPP) [Relative time] 1.1 {INR} 0.9 - 1.1 [facility] Comment on above: Recommended Anticoag ulant Therapy: [...] Interpretation and review of laboratory results Normal [facility] [employer] TSH Qnon 06-13-2022 Interpretation and review of laboratory results Normal [facility] [employer] Troponin I.cardiac [Mass/Vol ]on 06-13-2022 Interpretation and review of laboratory results Normal [facility] Patients with high l evels of Biotin oral intake (ie >5 mg/day) may have falsely decreased Troponin levels. [facility] XR Pelvis 1 or 2 Viewson No fracture or dislocation. Report Dictated on Electronically Signed By: Jovi Davis Electronically Signed Date/Time: 06/13/2022 3:33 PM EDT [facility] Patient Name: RICARDO VILLALPANDO : 1940 Exam Date/Time: 06/13/2022 15:21 Procedure: XR PELVIS 1-2 VIEWS Ordering Provider: CINTRON NISHIT Reason For Exam: fall PELVIS: CLINICAL INDICATION: Fall, pain. TECHNIQUE: AP COMPARISON: None. FINDINGS: There is no evidence for fracture or dislocation. Mild bilateral hip osteoarthrosis. Degenerative changes in the visualized spine. No bone lesion is identified. There is no soft tissue abnormality. [facility] Jovi Davis MD - 06/13/2022 Patient Name: RICARDO VILLALPANDO : 1940 Exam Date/Time: 06/13/2022 15:21 [...] PM EDT [facility] Radiology Study observation (narrative) [facility] [employer] XR Pelvis 1 or 2 ViewsOrdere d By: Jovi Davis on 06-13-2022 [employer] Work Phone: Absolute lymphocyte countOrd ered By: ED PROVIDER on 06-01-2022 Lymphocytes Auto (Unsp spec) [#/Vol] 1.57 10*3/uL 0.83-4.51 [facility] Basophil percentageOrdered B y: Dr. Younger on 06-01-2022 Basophil percentage 0-5 SEEN /hpf 0-5 [facility] Bilirubin [Mass/Vol] 0.30 mg/dL 0.20-1.00 [facility] Comment on above: For patients on eltr ombopag therapy, use of Dimension [place] TBIL is not recommended. Protein [Mass/Vol] 7.8 g/dL 6.4-8.2 [facility] Basophil percentageOrdered B y: ED PROVIDER on 06-01-2022 Basophils/100 WBC (Bld) 0.7 % 0-1 [facility] Chloride [Moles/Vol] 105 mmol/L 98-107 [facility] Eosinophils/100 WBC (Bld) 1.1 % 0-5 [facility] Glucose [Mass/Vol] 124 mg/dL 74-106 [facility] Comment on above: Fasting Glucose resu lt from 100 to 125 mg/dL suggests IMPAIRED HOMEOSTASIS per A.D.A. criteria. Neutrophils (Bld) [#/Vol] 4.9 10*3/uL 2.0-7.7 [facility] Neutrophils/100 WBC (Bld) 70.1 % 47-70 [facility] Potassium [Moles/Vol] 3.5 mmol/L 3.5-5.1 [facility] Sodium [Moles/Vol] 137 mmol/L 136-145 [facility] WBC (Bld) [#/Vol] 7.0 10*3/uL 4.4-11.0 [facility] Bilirubin Test strip Ql (U)O rdered By: Dr. Younger on 06-01-2022 Bilirubin Ql (U) Negative Negative [facility] Blood erythrocytes count (nu mber/volume)Ordered By: ED PROVIDER on 06-01-2022 RBC (Bld) [#/Vol] 3.71 10*6/uL 4.2-5.4 [facility] Blood hemoglobin measurement (mass/volume)Ordered By: ED PROVIDER on 06-01-2022 Hemoglobin (Bld) [Mass/Vol] 10.0 g/dL 12.0-15.0 [facility] Blood lymphocytes/100 leukoc ytesOrdered By: ED PROVIDER on 06-01-2022 Lymphocytes/100 WBC (Bld) 22.3 % 19-41 [facility] Blood monocytes/100 leukocyt esOrdered By: ED PROVIDER on 06-01-2022 Monocytes/100 WBC (Bld) 5.5 % 0-10 [facility] Blood platelet mean volumeOr dered By: ED PROVIDER on 06-01-2022 Platelet mean volume (Bld) [Entitic vol] 10.5 fL 6.2-12.0 [facility] Determination of erythrocyte mean corpuscular volume (MCV)Ordered By: ED PROVIDER on 06-01-2022 MCV (RBC) [Entitic vol] 85.4 fL 81-99 [facility] Direct bilirubinOrdered By: Dr. Younger on 06-01-2022 Bilirubin.direct [Mass/Vol] 0.25 mg/dL 0.00-0.30 [facility] Hematocrit Auto (Bld) [Volum e fraction]Ordered By: ED PROVIDER on 06-01-2022 Hematocrit (Bld) [Volume fraction] 31.7 % 37-47 [facility] Influenza virus A and B and SARS-CoV-2 (COVID-19) Ag panel - Upper respiratory specimOrdered By: Dr. Younger on 06-01-2022 SARS-CoV-2 (COVID-19) RNA BALDO+probe Ql (Resp) [facility] Ketones Test strip Ql (U)Ord ered By: Dr. Younger on 06-01-2022 Ketones Ql (U) Negative Negative [facility] Laboratory - Chemistry and C hemistry - challengeOrdered By: Dr. Younger on 06-01-2022 ALP [Catalytic activity/Vol] 207 U/L 45-117 [facility] ALT [Catalytic activity/Vol] 69 U/L 13-56 [facility] Globulin (S) [Mass/Vol] 5.5 g/dL 2.2-4.2 [facility] Laboratory - Chemistry and C hemistry - challengeOrdered By: ED PROVIDER on 06-01-2022 CO2 [Moles/Vol] 31.0 mmol/L 21.0-32.0 [facility] Urea nitrogen/Creatinine [Mass ratio] 33.1 mg/mg 10-20 [facility] Laboratory - Hematology and Cell countsOrdered By: ED PROVIDER on 06-01-2022 Erythrocyte distribution width (RBC) [Entitic vol] 42.8 fL 35.1-43.9 [facility] Erythrocyte distribution width (RBC) [Ratio] 13.8 % 11.6-14.6 [facility] Immature granulocytes/100 WBC (Bld) 0.300 % 0.0-0.9 [facility] Comment on above: IG% - Immature Granu locytes (promyelocytes, myelocytes and metamyelocytes) > 1% indicates that a LEFT SHIFT is Present. MCH (RBC) [Entitic mass] 27.0 pg 27.0-32.0 [facility] Nucleated RBC/100 WBC (Bld) [Ratio] 0 % 0-5 [facility] MCHC Auto (RBC) [Mass/Vol]Or dered By: ED PROVIDER on 06-01-2022 MCHC (RBC) [Mass/Vol] 31.5 g/dL 32-36 [facility] Mucus LM Ql (Urine sed)Order ed By: Dr. Younger on 06-01-2022 Mucus Ql (Urine sed) 0 SEEN /hpf [facility] Nitrite Test strip Ql (U)Ord ered By: Dr. Younger on 06-01-2022 Nitrite Ql (U) Negative Negative [facility] No Panel InformationOrdered By: ED PROVIDER on 06-01-2022 Estimated GFR (MDRD) Amer 77 mL/min >60 [facility] Comment on above: GFR Calc Estimated GFR (MDRD) Non-Af Amer 64 mL/min >60 [facility] Comment on above: Non- GFR Calc Platelets bldOrdered By: ED PROVIDER on 06-01-2022 Platelets (Bld) [#/Vol] 248 10*3/uL 150-450 [facility] Protein Test strip Ql (U)Ord ered By: Dr. Younger on 06-01-2022 Protein Ql (U) 30 mg/dl Negative [facility] Serum or plasma albumin blanco urement (mass/volume)Ordered By: Dr. Younger on 06-01-2022 Albumin [Mass/Vol] 2.3 g/dL 3.2-5.0 [facility] Serum or plasma calcium blanco urement (mass/volume)Ordered By: ED PROVIDER on 06-01-2022 Calcium [Mass/Vol] 8.6 mg/dL 8.5-10.1 [facility] Serum or plasma creatinine m easurement (mass/volume)Ordered By: ED PROVIDER on 06-01-2022 Creatinine [Mass/Vol] 0.91 mg/dL 0.55-1.02 [facility] Comment on above: The validity of the calculated GFR & GFRAA in patients over 70 years has not been determined. Clinical correlation is essential. Serum or plasma urea nitroge n measurement (mass/volume)Ordered By: ED PROVIDER on 06-01-2022 Urea nitrogen [Mass/Vol] 30 mg/dL 7-18 [facility] Squamous epithelial cells de tection in urine sediment by light microscopyOrdered By: Dr. Younger on 06-01-2022 Epithelial cells.squamous LM Ql (Urine sed) 0-5 SEEN /hpf 5-10 [facility] Thin prep Papanicolaou smear with manual screeningOrdered By: Dr. Younger on 06-01-2022 Thin prep Papanicolaou smear with manual screening 75 U/L 15-37 [facility] Thin prep Papanicolaou smear with manual screeningOrdered By: ED PROVIDER on 06-01-2022 Thin prep Papanicolaou smear with manual screening 1 5-15 [facility] Urine blood detectionOrdered By: Dr. Younger on 06-01-2022 RBC Ql (U) Negative Negative [facility] RBC Ql (U) 0 SEEN /hpf 0-5 [facility] Urine clarityOrdered By: Dr. Younger on 06-01-2022 Clarity (U) Sl. Cloudy Clear [facility] Urine color determinationOrd ered By: Dr. Younger on 06-01-2022 Color (U) Yellow Yellow [facility] Urine glucose detectionOrder ed By: Dr. Younger on 06-01-2022 Glucose Ql (U) Normal mg/dl Normal [facility] Urine leukocyte esterase det ection by dipstickOrdered By: Dr. Younger on 06-01-2022 Leukocyte esterase Test strip Ql (U) 25 /ul Negative [facility] Urine pHOrdered By: Dr. Jacqueline delgado on 06-01-2022 pH (U) 5.0 [pH] 5.0 - 8.0 [facility] Urine sediment bacteria coun t by microscopy (number/high power field)Ordered By: Dr. Younger on 06-01-2022 Bacteria LM.HPF (Urine sed) [#/Area] 0 /[HPF] None Seen [facility] Urine specific gravity measu rementOrdered By: Dr. Younger on 06-01-2022 Specific gravity (U) [Rel density] 1.015 1.002-1.030 [facility] Urobilinogen Auto test strip Ql (U)Ordered By: Dr. Younger on 06-01-2022 Urobilinogen Ql (U) 1 mg/dl Normal [facility] Absolute lymphocyte countOrd ered By: Dr. Pack on 05-13-2022 Lymphocytes Auto (Unsp spec) [#/Vol] 1.03 10*3/uL 0.83-4.51 [facility] Basophil percentageOrdered B y: Dr. Pack on 05-13-2022 Basophils/100 WBC (Bld) 0.8 % 0-1 [facility] Chloride [Moles/Vol] 106 mmol/L 98-107 [facility] Eosinophils/100 WBC (Bld) 4.1 % 0-5 [facility] Glucose [Mass/Vol] 102 mg/dL 74-106 [facility] Comment on above: Fasting Glucose resu lt from 100 to 125 mg/dL suggests IMPAIRED HOMEOSTASIS per A.D.A. criteria. Neutrophils (Bld) [#/Vol] 3.0 10*3/uL 2.0-7.7 [facility] Neutrophils/100 WBC (Bld) 61.7 % 47-70 [facility] Potassium [Moles/Vol] 3.9 mmol/L 3.5-5.1 [facility] Sodium [Moles/Vol] 139 mmol/L 136-145 [facility] WBC (Bld) [#/Vol] 4.8 10*3/uL 4.4-11.0 [facility] Blood erythrocytes count (nu mber/volume)Ordered By: Dr. Pack on 05-13-2022 RBC (Bld) [#/Vol] 3.19 10*6/uL 4.2-5.4 [facility] Blood hemoglobin measurement (mass/volume)Ordered By: Dr. Pack on 05-13-2022 Hemoglobin (Bld) [Mass/Vol] 8.7 g/dL 12.0-15.0 [facility] Blood lymphocytes/100 leukoc ytesOrdered By: Dr. Pack on 05-13-2022 Lymphocytes/100 WBC (Bld) 21.4 % 19-41 [facility] Blood monocytes/100 leukocyt esOrdered By: Dr. Pack on 05-13-2022 Monocytes/100 WBC (Bld) 11.8 % 0-10 [facility] Blood platelet mean volumeOr dered By: Dr. Pack on 05-13-2022 Platelet mean volume (Bld) [Entitic vol] 11.9 fL 6.2-12.0 [facility] Determination of erythrocyte mean corpuscular volume (MCV)Ordered By: Dr. Pack on 05-13-2022 MCV (RBC) [Entitic vol] 89.0 fL 81-99 [facility] Glucose Glucometer (dC) [M ass/Vol]Ordered By: Dr. Pack on 05-13-2022 Glucose [Mass/Vol] 131 mg/dL 74-106 [facility] Comment on above: MANAGEMENT OF PATIEN T CARE PER NURSING PROTOCOL Hematocrit Auto (Bld) [Volum e fraction]Ordered By: Dr. Pack on 05-13-2022 Hematocrit (Bld) [Volume fraction] 28.4 % 37-47 [facility] INR in Blood by Coagulation assayOrdered By: Dr. Gill on 05-13-2022 INR Coag (Bld) [Relative time] 1.2 {INR} [facility] Iron measurement (mass/mass) Ordered By: Dr. Pack on 05-13-2022 Iron (Unsp spec) [Mass/Mass] 39 ug/dL 50-170 [facility] Laboratory - Chemistry and C hemistry - challengeOrdered By: Dr. Pack on 05-13-2022 CO2 [Moles/Vol] 28.0 mmol/L 21.0-32.0 [facility] Urea nitrogen/Creatinine [Mass ratio] 23.3 mg/mg 10-20 [facility] Laboratory - CoagulationOrde red By: Dr. Gill on 05-13-2022 aPTT Coag (Bld) [Time] 34.4 s 24.1-36.2 [facility] [place] PT Coag (PPP) [Time] 14.7 s 11.7-14.9 [facility] Laboratory - Hematology and Cell countsOrdered By: Dr. Pack on 05-13-2022 Erythrocyte distribution width (RBC) [Entitic vol] 42.1 fL 35.1-43.9 [facility] Erythrocyte distribution width (RBC) [Ratio] 13.0 % 11.6-14.6 [facility] Immature granulocytes/100 WBC (Bld) 0.200 % 0.0-0.9 [facility] Comment on above: IG% - Immature Granu locytes (promyelocytes, myelocytes and metamyelocytes) > 1% indicates that a LEFT SHIFT is Present. MCH (RBC) [Entitic mass] 27.3 pg 27.0-32.0 [facility] Nucleated RBC/100 WBC (Bld) [Ratio] 0 % 0-5 [facility] MCHC Auto (RBC) [Mass/Vol]Or dered By: Dr. Pack on 05-13-2022 MCHC (RBC) [Mass/Vol] 30.6 g/dL 32-36 [facility] No Panel InformationOrdered By: Dr. Pack on 05-13-2022 Estimated Creatinine Clearance Calc 37.10 ml/min [facility] Estimated GFR (MDRD) Amer 82 mL/min >60 [facility] Comment on above: GFR Calc Estimated GFR (MDRD) Non-Af Amer 68 mL/min >60 [facility] Comment on above: Non- GFR Calc Total Iron Binding Capacity 406 ug/dL 250-450 [facility] Platelets bldOrdered By: Dr. Pack on 05-13-2022 Platelets (Bld) [#/Vol] 178 10*3/uL 150-450 [facility] Serum or plasma calcium blanco urement (mass/volume)Ordered By: Dr. Pack on 05-13-2022 Calcium [Mass/Vol] 9.1 mg/dL 8.5-10.1 [facility] Serum or plasma creatinine m easurement (mass/volume)Ordered By: Dr. Pack on 05-13-2022 Creatinine [Mass/Vol] 0.86 mg/dL 0.55-1.02 [facility] Comment on above: The validity of the calculated GFR & GFRAA in patients over 70 years has not been determined. Clinical correlation is essential. Serum or plasma ferritin ellen surement (mass/volume)Ordered By: Dr. Pack on 05-13-2022 Ferritin [Mass/Vol] 17 ng/mL 8-252 [facility] Serum or plasma iron saturat ion measurement (mass fraction)Ordered By: Dr. Pack on 05-13-2022 Iron saturation [Mass fraction] 9.6 % 15.0-55.0 [facility] Serum or plasma urea nitroge n measurement (mass/volume)Ordered By: Dr. Pack on 05-13-2022 Urea nitrogen [Mass/Vol] 20 mg/dL 7-18 [facility] Thin prep Papanicolaou smear with manual screeningOrdered By: Dr. Pack on 05-13-2022 Thin prep Papanicolaou smear with manual screening 5 5-15 [facility] Whole blood hemoglobin A1c/t otal hemoglobin ratio (mass fraction)Ordered By: Dr. Gill on 05-13-2022 HbA1c (Bld) [Mass fraction] 5.7 % 3.8-5.6 [facility] Comment on above: Normal < 5.7 % Predi abetic 5.7 - 6.4 % Diabetic >or= 6.5 % Please note range changes. Laboratory - Chemistry and C hemistry - challengeon 02-23-2022 Glucose [Mass/Vol] 119 mg/dL High 70 - 100 mg/dL [facility] [employer] No Panel Informationon 02-23 Interpretation and review of laboratory results Abnormal Humansized Performed by: JOSE JUAN ID: [id number] [facility] [employer] CT Head or Brain w/o Contras ton 05-13-2021 CT Head or Brain w/o Contrast Patient Name: [facility] [id number] Computed Tomography ACCESSION EXAM DATE/TIME PROCEDURE ORDERING PROVIDER [id number] 05/13/2021 16:[address] Head or Brain w/o ROYCE KOEHLER Contrast CPT code 07040 Reason For Exam (CT Head or Brain [...] Date and Time: 05/14/2021 8:13 Normal [facility] Comp Metabolic Panelon 12-30 ALP [Catalytic activity/Vol] 157 U/L High 38-126 [facility] Comment on above: Performed By: #### C MP3 #### [facility] [address] [place] [address] ALT [Catalytic activity/Vol] 45 U/L High 0-34 [facility] Comment on above: Result Comment: The ALT test is performed by an updated assay method. Please note that the reference intervals have been changed and are now sex specific. Performed By: #### C MP3 #### [facility] [address] [place] [address] Calcium [Mass/Vol] 10.0 mg/dL Normal 8.4-10.4 [facility] Comment on above: Performed By: #### C MP3 #### [facility] [address] [place] [address] Glucose [Mass/Vol] 109 mg/dL High 70-100 [facility] Comment on above: Performed By: #### C MP3 #### [facility] [address] [place] [address] Urea nitrogen [Mass/Vol] 19 mg/dL Normal 9-20 [facility] Comment on above: Performed By: #### C MP3 #### [facility] [address] [place] [address] Anion gap [Moles/Vol] 2 mmol/L Low 3-[address] [facility] Comment on above: Performed By: #### C MP3 #### [facility] [address] [place] [address] AST [Catalytic activity/Vol] 65 U/L High 15-46 [facility] Comment on above: Performed By: #### C MP3 #### [facility] [address] [place] [address] Bilirubin [Mass/Vol] 0.4 mg/dL Normal 0.2-1.3 [facility] Comment on above: Performed By: #### C MP3 #### [facility] [address] [place] [address] CO2 [Moles/Vol] 34 mmol/L High 22-30 [facility] Comment on above: Performed By: #### C MP3 #### [facility] [address] [place] [address] Creatinine [Mass/Vol] 0.96 mg/dL Normal 0.52-1.[address] [facility] Comment on above: Performed By: #### C MP3 #### [facility] [address] [place] [address] GFR/1.73 sq M.predicted among blacks MDRD (S/P/Bld) [Vol rate/Area] 65.6 mL/min/{1.73_m2} Normal >60 [facility] Comment on above: Performed By: #### C MP3 #### [facility] [address] [place] [address] GFR/1.73 sq M.predicted among non-blacks MDRD (S/P/Bld) [Vol rate/Area] 56.6 mL/min/{1.73_m2} Abnormal >60 [facility] Comment on above: Result Comment: KDIG [...] Performed By: #### C MP3 #### [facility] [address] [place] [address] Protein [Mass/Vol] 7.7 g/dL Normal 6.3-8.2 [facility] Comment on above: Performed By: #### C MP3 #### [facility] [address] [place] [address] Potassium [Moles/Vol] 3.7 mmol/L Normal 3.5-5.[address] [facility] Comment on above: Performed By: #### C MP3 #### [facility] [address] [place] [address] Sodium [Moles/Vol] 142 mmol/L Normal 135-145 [facility] Comment on above: Performed By: #### C MP3 #### [facility] [address] [place] [address] Albumin [Mass/Vol] 4.0 g/dL Normal 3.5-5.0 [facility] Comment on above: Performed By: #### C MP3 #### [facility] [address] [place] [address] Chloride [Moles/Vol] 105 mmol/L Normal 98-107 [facility] Comment on above: Performed By: #### C MP3 #### [facility] [address] [place] [address] Hemogramon 11-08-2020 Erythrocyte distribution width (RBC) [Ratio] 12.5 % Normal 11.5-14.5 [facility] Comment on above: Performed By: #### H EMOG, LIPD2 #### [facility] [address] [place] [address] Hematocrit (Bld) [Volume fraction] 37.0 % Normal 35.0-47.0 [facility] Comment on above: Performed By: #### H EMOG, LIPD2 #### [facility] [address] [place] [address] Hemoglobin (Bld) [Mass/Vol] 12.6 g/dL Normal 11.7-16.0 [facility] Comment on above: Performed By: #### H EMOG, LIPD2 #### [facility] [address] [place] [address] MCH (RBC) [Entitic mass] 31.7 pg Normal 26.0-34.0 [facility] Comment on above: Performed By: #### H EMOG, LIPD2 #### [facility] [address] [place] [address] MCHC 34.1 % Normal 32.0-36.0 [facility] Comment on above: Performed By: #### H EMOG, LIPD2 #### [facility] [address] [place] [address] MCV (RBC) [Entitic vol] 92.9 fL Normal 79.0-98.0 [facility] Comment on above: Performed By: #### H EMOG, LIPD2 #### [facility] [address] [place] [address] Platelet mean volume (Bld) [Entitic vol] 9.4 fL Normal 7.4-10.4 [facility] Comment on above: Performed By: #### H EMOG, LIPD2 #### [facility] [address] [place] [address] Platelets (Bld) [#/Vol] 208 10*3/uL Normal 140-440 [facility] Comment on above: Performed By: #### H EMOG, LIPD2 #### [facility] [address] [place] [address] RBC (Bld) [#/Vol] 3.98 10*6/uL Normal 3.80-5.20 [facility] Comment on above: Performed By: #### H EMOG, LIPD2 #### [facility] [address] [place] [address] WBC (Bld) [#/Vol] 7.3 10*3/uL Normal 3.6-10.7 [facility] Comment on above: Performed By: #### H EMOG, LIPD2 #### [facility] [address] [place] [address] Lipid Panelon 11-08-2020 Chol/HDL 2 Normal [facility] Comment on above: Result Comment: Ref Range: < 3 Low Risk for CHD 3-6 Mod Risk for CHD > 6 High Risk for CHD Performed By: #### H EMOG, LIPD2 #### [facility] [address] [place] [address] Cholesterol in HDL [Mass/Vol] 61 mg/dL High 40-60 [facility] Comment on above: Performed By: #### H EMOG, LIPD2 #### [facility] [address] [place] [address] Low Density Lipoprotein 53 mg/dL Normal <100 [facility] Comment on above: Performed By: #### H EMOG, LIPD2 #### [facility] [address] [place] [address] Triglyceride [Mass/Vol] 63 mg/dL Normal <150 [facility] Comment on above: Performed By: #### H EMOG, LIPD2 #### [facility] [address] [place] [address] Cholesterol [Mass/Vol] 127 mg/dL Normal < 200 [facility] Comment on above: Performed By: #### H EMO, LIPD2 #### [facility] [address] [place] [address] US ABDOMEN LIMITEDOrdered By : Alisson Morton on 08-20-2020 Patient Name: RICARDO VILLALPANDO Ultrasound ACCESSION EXAM DATE/TIME PROCEDURE ORDERING PROVIDER [id number] 08/20/2020 09:18 EDT US Abdomen Limited DO MORTON LISA CPT code 95658 Reason For Exam (US Abdomen Limited) elevated [...] R Transcribed Date and Time: 08/20/2020 9:18 [facility] Work Phone: [facility] Incoming Radiology Results From [facility] - 08/20/2020 9:18 AM EDT Patient Name: RICARDO VILLALPANDO Ultrasound ACCESSION EXAM DATE/TIME PROCEDURE ORDERING PROVIDER [id number] 08/20/2020 09:18 EDT US Abdomen Limited DO MORTON LISA CPT code 72595 Reason For Exam (US Abdomen Limited) elevated [...] R Transcribed Date and Time: 08/20/2020 9:18 [facility] Work Phone: [facility] Work Phone: US Abdomen Limitedon 021 US Abdomen Limited Patient Name: RICARDO VILLALPANDO Ultrasound ACCESSION EXAM DATE/TIME PROCEDURE ORDERING PROVIDER [id number] 08/20/2020 09:18 EDT US Abdomen Limited DO PRAVEEN ALISSON CPT code 14267 Reason For Exam (US Abdomen Limited) elevated [...] Date and Time: 08/20/2020 9:18 Normal [facility] Hepatic Functionon 1 ALP [Catalytic activity/Vol] 173 U/L High 38-126 [facility] Comment on above: Performed By: #### L FT3 #### [facility] [address] [place] [address] ALT [Catalytic activity/Vol] 62 U/L High 0-34 [facility] Comment on above: Result Comment: The ALT test is performed by an updated assay method. Please note that the reference intervals have been changed and are now sex specific. Performed By: #### L FT3 #### [facility] [address] [place] [address] AST [Catalytic activity/Vol] 76 U/L High 15-46 [facility] Comment on above: Performed By: #### L FT3 #### [facility] [address] [place] [address] Bilirubin [Mass/Vol] 0.5 mg/dL Normal 0.2-1.3 [facility] Comment on above: Performed By: #### L FT3 #### [facility] [address] [place] [address] Bilirubin.indirect [Mass/Vol] 0.0 mg/dL Normal 0.0-0.3 [facility] Comment on above: Performed By: #### L FT3 #### [facility] [address] [place] [place] [address] Protein [Mass/Vol] 7.5 g/dL Normal 6.3-8.2 [facility] Comment on above: Performed By: #### L FT3 #### [facility] [address] [place] [address] Albumin [Mass/Vol] 4.0 g/dL Normal 3.5-5.0 [facility] Comment on above: Performed By: #### L FT3 #### [facility] [address] [place] [address] Medical Cytologyon 1 Medical Cytology [facility] [id number] [facility]PARTMENT OF PATHOLOGY AND [facility] LABORATORY MEDICINE [address] [place] [address] [id number] FINAL MEDICAL CYTOLOGY REPORT NAME: RICARDO VILLALPANDO : 1940 79 Y F BILLING NO.: [id number] LOCATION: [facility] ULTRASOUND PROCEDURE 06/04/2020 DATE: PHYSICIAN: ADELA REEVES PA-C RECEIVED DATE: 06/04/2020 ATTENDING: ADELA REEVES PA-C REPORT DATE: 06/05/2020 COPIES TO: EDIS MARIA D.O. CLINICAL DATA: Left thyroid nodule DIAGNOSIS Diagnostic Category: BENIGN. Benign follicular nodule. Scant groups of benign-appearing follicular cells present in a background of peripheral blood elements. Comment: According to the [place] System for Reporting Thyroid Cytopathology, the implied risk of malignancy associated with the general categories are as follows: "Benign" 0-3%, Atypia of Undetermined Significance" 5-15%, Follicular Lesion of Undetermined Significance" 5-15%, Follicular Neoplasm or Suspicious for a Follicular Neoplasm" 15-30%, "Suspicious for Malignancy" 60-75% and "Malignancy" 97-99%. Malignancy rates at individual institutions may differ from these published rates. SPECIMEN: FINE NEEDLE ASPIRATION-THYROID, LEFT PROCEDURE(S): FINE NEEDLE ASPIRATION GROSS DESCRIPTION: 30 ml, [place] fluid, w/cytolyt. Materials Prepared & Examined: Cell [...] determined by the clinical laboratories of [facility]. They have not been cleared by [...] negativity on decalcified specimens. Case reviewed at [facility] [address] [place] [address]. DEPARTMENT OF PATHOLOGY AND LABORATORY MEDICINE [place], [place] [address] [email or web address] Normal [facility] US Biopsy Thyroidon 06-05-19 US Biopsy Thyroid Patient Name: RICARDO VILLALPANDO Ultrasound ACCESSION EXAM DATE/TIME PROCEDURE ORDERING PROVIDER [id number] 06/04/2020 11:17 EDT US Biopsy Thyroid POONAM REEVES AMBER CPT code 40825 62860 Reason For Exam (US Biopsy Thyroid) left [...] Date and Time: 06/04/2020 12:14 Normal [facility] US GUIDED THYROID BIOPSY PER CUTANEOUSOrdered By: Adela Reeves on 06-04-2020 Patient Name: RICARDO VILLALPANDO Ultrasound ACCESSION EXAM DATE/TIME PROCEDURE ORDERING PROVIDER [id number] 06/04/2020 11:17 EDT US Biopsy Thyroid POONAM REEVES AMBER CPT code 58356 26799 Reason For Exam (US Biopsy Thyroid) left [...] I Transcribed Date and Time: 06/04/2020 12:14 [facility] Work Phone: [facility] Incoming Radiology Results From [facility] - 06/04/2020 12:14 PM EDT Patient Name: RICARDO VILLALPANDO Ultrasound ACCESSION EXAM DATE/TIME PROCEDURE ORDERING PROVIDER [id number] 06/04/2020 11:17 EDT US Biopsy Thyroid POONAM REEVES AMBER CPT code 03101 96369 Reason For Exam (US Biopsy Thyroid) left [...] Phone: US Thyroid/Parathyroidon US Thyroid/Parathyroid Patient Name: RICARDO BEE Ultrasound ACCESSION EXAM DATE/TIME PROCEDURE ORDERING PROVIDER [id number] 05/21/2020 14:35 EDT US Parathyroid BIBI WYATT RYAN C CPT code 78238 Reason For Exam (US Parathyroid) Throid nodule [...] Transcribed Date and Time: 05/22/2020 11:57 Normal [facility] [employer] XR KNEE RIGHT (MIN 4 VIEWS)o n 02-07-2020 Patient Name: [id number] Diagnostic Radiology ACCESSION EXAM DATE/TIME PROCEDURE ORDERING PROVIDER [id number] 02/07/2020 15:25 EST CR Knee Complete 4+ ESTERLE, DO, ALISSON Views Right CPT code 87642 Reason For Exam (CR Knee Complete 4+ [...] LAURA Transcribed Date and Time: 02/07/2020 4:46 [place], [place] [facility] 02[facility]07/2020 4:46 PM EST Patient Name: RICARDO VILLALPANDO [facility]#: [id number] Diagnostic Radiology ACCESSION EXAM DATE/TIME PROCEDURE ORDERING PROVIDER [id number] 02/07/2020 15:25 EST CR Knee Complete 4+ ESTERLE, DO, ALISSON Views Right CPT code 40952 Reason For Exam (CR Knee Complete 4+ [...] LAURA Transcribed Date and Time: 02/07/2020 4:46 [place], [place] CT HEAD OR BRAIN W/O CONTRAS [...] Date: 12/02/2019 7:26:15 PM Ordering Provider:Peter Swift [facility] [place] MAXILLOFACIAL W/O JIE Sanders 12-02-2019 CT MAXILLOFACIAL W/O CONTRAST ORIGINAL CT [...] Date: 12/02/2019 8:18:14 PM Ordering Provider:Peter Swift [facility] CYTOLOGY, NON-GYNon 11-09-19 Cytology report Cyto stain.thin prep Doc (Cvx/Vag) SEE BELOW [facility], [place] 1 [facility] [id number] DEPARTMENT OF PATHOLOGY AND [facility] LABORATORY MEDICINE [address] [place] [address] FINAL MEDICAL CYTOLOGY REPORT NAME: RICARDO VILLALPANDO : 1940 79 Y F BILLING NO.: [id number] LOCATION: [facility] ULTRASOUND PROCEDURE 11/09/2019 DATE: PHYSICIAN: ZOE WYATT RECEIVED DATE: 11/09/2019 ATTENDING: ZOE WYATT REPORT DATE: 11/09/2019 COPIES TO: SHANICE RIVERA MD CLINICAL DATA: DIAGNOSIS Diagnostic Category: BENIGN. Benign follicular nodule, consistent with a colloid nodule. Many groups of follicular cells and colloid present. Comment: According to the [place] System for Reporting Thyroid Cytopathology, the implied risk of malignancy associated with the general categories are as follows: "Benign" 0-3%, Atypia of Undetermined Significance" 5-15%, Follicular Lesion of Undetermined Significance" 5-15%, Follicular Neoplasm or Suspicious for a Follicular Neoplasm" 15-30%, "Suspicious for Malignancy" 60-75% and "Malignancy" 97-99%. Malignancy rates at individual institutions may [...] . . . . . . , [facility] Screened by JENNY FERNANDEZ M.D. Printed November 09, 2019 at 4:33:03 PM Disclaimer The following statement applies to all immunohistochemistry, in situ hybridization, molecular studies, and immunofluorescence testing. The use of one or more reagents in the above tests is regulated as an analyte specific reagent (ASR). These tests were developed and their performance characteristics determined by the clinical laboratories of [facility]. They have not been cleared by [...] negativity on decalcified specimens. Case reviewed at [place] [address] [place] [address]. DEPARTMENT OF PATHOLOGY AND LABORATORY MEDICINE [place], [place] [address] [place], [place] US FINE NEEDLE ASPIRATIONon 11-09-2019 Patient Name: RICARDO VILLALPANDO ---Ultrasound--- Exam Date/Time 11/09/2019 11:38:38 EDT Exam US Fine Needle Aspiration w/ Image Guide Ordering Physician BIBI WYATT RYAN C Accession Number [id number] CPT4 Codes 97708 () Reason For Exam Left sided thyroid [...] KEVIN Transcribed Date and Time: 11/09/2019 2:40 [place], [place] Kash, [place] Incoming Radiology Results From [facility] - 11/09/2019 2:40 PM EDT Patient Name: RICARDO VILLALPANDO ---Ultrasound--- Exam Date/Time 11/09/2019 11:38:38 EDT Exam US Fine Needle Aspiration w/ Image Guide Ordering Physician BIBI WYATT RYAN C Accession Number [id number] CPT4 Codes 48726 () Reason For Exam Left sided thyroid [...] KEVIN Transcribed Date and Time: 11/09/2019 2:40 [place], [place] US THYROIDon 10-18-2019 Patient Name: RICARDO VILLALPANDO ---Ultrasound--- Exam Date/Time 10/18/2019 15:28:03 EDT Exam US Parathyroid Ordering Physician DO MORTON LISA Accession Number [id number] CPT4 Codes 74960 () Reason For Exam thyroid nodule Report [...] [facility]. May 2016 https://radiopaedia.org/a rticles/vvbfqyv-khwxj-vln twitoz-ulu-hmjo-system- tirads https://radiopaedia.org/a rticles/cgr-ghibact-zxmib al-cegvqowfy-rmd-data- system-a r-ti-rads Report Dictated on --- Final --- Dictating Physician: DO ORDOÑEZ RACHEL Signed Date and Time: 10/18/2019 4:32 pm Signed by: DO ORDOÑEZ RACHEL Transcribed Date and Time: 10/18/2019 4:33 [facility] [place] Kash, [facility] Incoming Radiology Results From [facility] - 10/18/2019 4:33 PM EDT Patient Name: RICARDO VILLALPANDO ---Ultrasound--- Exam Date/Time 10/18/2019 15:28:03 EDT Exam US Parathyroid Ordering Physician DO MORTON LISA Accession Number [id number] CPT4 Codes 28955 () Reason For Exam thyroid nodule Report [...] [facility]. May 2016 https://radiopaedia.org/a rticles/vevttsk-lvboz-pkh mgdozq-vjz-vhme-system- tirads https://radiopaedia.org/a rticles/hip-okcmavh-hdjos id-hqtpymbyx-ehl-data- system-a r-ti-rads Report Dictated on --- Final --- Dictating Physician: DO ORDOÑEZ RACHEL Signed Date and Time: 10/18/2019 4:32 pm Signed by: DO ORDOÑEZ RACHEL Transcribed Date and Time: 10/18/2019 4:33 [place], [place] BREAST ULTRASOUNDon 10-04-19 BREAST ULTRASOUND Patient Name: RICARDO VILLALPANDO STUDY: BREAST ULTRASOUND; 10/04/2019 11:18 am ACCESSION NUMBER(S): [id number] ORDERING CLINICIAN: ALEXYS SCHWARTZ INDICATION: The patient was recalled from recent screening mammogram 08/09/2019 for a right breast mass like asymmetry. COMPARISON: Mammogram 08/09/2019. FINDINGS: Targeted ultrasound of the right breast was performed by a registered near eastern archaeology lecturer submitted for remote interpretation. A morphologically normal [...] any future breast imaging appointments, please call [phone]). Patient letter sent SNORM I personally reviewed the images/study and I agree with the resident in diagnostic radiology physician, Dr. Geremias New's findings, as stated. This study was interpreted at [facility]. Electronically signed by: NAEL COLMENARES MD Normal [facility] CT HEAD OR BRAIN W/O CONTRAS [...] Date: 09/27/2019 10:01:36 PM Ordering Provider:Felton Mitchell [facility] [place] SPINE CERVICAL W/O CONTRA STon 09-28-2019 CT SPINE CERVICAL W/O CONTRAST ORIGINAL [...] PM Sign Date: 09/27/2019 10:04:18 PM Ordering Provider:[facility] XR CHEST 2 VIEWSon 0 XR CHEST [...] PM Sign Date: 09/27/2019 10:20:57 PM Ordering Provider:[facility]) XR ELBOW MINIMUM 3 VIEWS RIG HTon [...] PM Sign Date: 09/27/2019 10:20:19 PM Ordering Provider:[facility]) Basic Metabolic Panelon 08-08 Anion gap [Moles/Vol] 9 mmol/L [place], [place] Calcium [Mass/Vol] 9.7 mg/dL 8.4 - 10. 4 mg/dL [place], [place] Chloride [Moles/Vol] 99 mmol/L 98 - 10 7 mmol/L [place] CO2 [Moles/Vol] 32 mmol/L High 22 - 30 mmol/L [place] Creatinine [Mass/Vol] 1.02 mg/dL 0.52 - 1.25 mg/dL [place], [place] EGFR IF NonAfrican [place] 53.1 mL/min Abnormal >60 [place], [place] Comment on above: KDIGO guidelines pro [...] MDRD (S/P/Bld) [Vol rate/Area] 61.5 mL/min/{1.73_m2} >60 [place] Glucose [Mass/Vol] 146 mg/dL High 70 - 100 mg/dL [place] Potassium [Moles/Vol] 3.7 mmol/L 3.5 - 5.1 mmol/L [place] Sodium [Moles/Vol] 140 mmol/L 135 - 145 mmol/L [place] Urea nitrogen [Mass/Vol] 29 mg/dL High 7 - 20 mg/dL [place], [place] CBCon 08-21-2019 Erythrocyte distribution width (RBC) [Ratio] 12.7 % 11.5 - 14.5 % [place] Hematocrit (Bld) [Volume fraction] 37.1 % 35 - 47 % [place] Hemoglobin (Bld) [Mass/Vol] 12.7 g/dL 11.7 - 16 g/dL [place] MCH (RBC) [Entitic mass] 32.0 pg 26 - 34 pg [place] MCHC (RBC) [Mass/Vol] 34.3 % 32 - 36 % [place], [place] MCV (RBC) [Entitic vol] 93.3 fL 79 - 98 fL [place], [place] Platelet mean volume (Bld) [Entitic vol] 10.3 fL 7.4 - 10.4 fL [place] Platelets (Bld) [#/Vol] 236 10*3/uL 140 - 440 10*3/uL [place] RBC (Bld) [#/Vol] 3.97 10*6/uL 3.8 - 5.2 10*6/uL [place] WBC (Bld) [#/Vol] 8.1 10*3/uL 3.6 - 10.7 10*3/uL [place] Test Performed by [facility], [address] [place] [address] Pat[place]. , [address] Hepatic Function Panelon Albumin [Mass/Vol] 4.1 g/dL 3.5 - 5 g/dL [place], [place] ALP [Catalytic activity/Vol] 172 U/L High 38 - 126 U/L [place], [place] ALT [Catalytic activity/Vol] 63 U/L High 0 - 34 U/L [place] Comment on above: The ALT test is perf ormed by an updated assay method. Please note that the reference intervals have been changed and are now sex specific. AST [Catalytic activity/Vol] 65 U/L High 15 - 46 U/L [place] Bilirubin Ql (U) 0.4 mg/dL 0.2 - 1.3 mg/dL [place] Bilirubin.direct [Mass/Vol] 0.0 mg/dL 0 - 0.3 mg/dL [place] Protein [Mass/Vol] 7.5 g/dL 6.3 - 8.2 g/dL [facility] Otheron 08-21-2019 Interpretation and review of laboratory results Abnormal [facility] Test Performed by [facility], [address] , [place] [phone] [facility] KRAL DIGITAL MAMM SCREENING W/ TO Lynne 08-09-2019 DIGITAL MAMM SCREENING W/ ENOCH Patient Name: RICARDO VILLALPANDO STUDY: DIGITAL MAMM SCREENING W/ ENOCH; 08/09/2019 11:50 am ACCESSION NUMBER(S): [id number] ORDERING CLINICIAN: ALEXYS SCHWARTZ INDICATION: Screening. New baseline. COMPARISON: None. [...] any future breast imaging appointments, please call [phone]). Patient letter sent SADEVAL I personally reviewed the images/study and I agree with the resident, Dr. Geremias New's findings as stated. This study was interpreted at [facility]. Electronically signed by: THELMA HERNANDEZ MD [facility] Clinic Note - Heme Oncon Clinic Note - Heme Onc History of Presen t Illness: Interval History: Consulting physician Dr. Morton Reason for follow-up Weight loss History of present illness Patient is a 78-year-old white woman with past medical history of acute WI and hypoxic brain injury at that time [...] had EGD 6 months ago either at [facility] or [facility] in July 2018 and had stent placed at [facility], at that time she was hypoxemic [...] EGD with the last 6 month at [facility] per daughter REVIEW OF SYSTEMS: Patient [...] No hepatosplenomegaly or masses. Bowel sounds positive. LITERACY SPECIALIST: Speech is normal. Extremities: No clubbing, cyanosis, or edema. Skin: No petechial rash. 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 Thank you very much for allowing me to participate in care of this patient, should you have any further question please do not hesitate to contact me. Charting was completed using voice recognition technology and may include unintended errors. Alexys Schwartz MD Hematology-Oncology [facility] Office [facility] Office Outpatient Medication Profile: * Patient Currently [...] Reference Range: STRAW,YELLOW Appearance, Urine CLEAR Specific [place], Urine 1.020 pH, Urine 6.0 Protein, Urine NEGATIVE Glucose, Urine NEGATIVE Blood, Urine NEGATIVE Ketones, Urine NEGATIVE Bilirubin, Urine NEGATIVE Urobilinogen, Urine <2.0 Nitrite, Urine NEGATIVE Leukocyte Esterase, Urine NEGATIVE HIV Antigen/Antibody Screen 05-Jun-2019 08:31:00 ResultValue HIV Ag/Ab Screen NONREACTIVE Reference Range: NONREACTIVE HIV Ag/Ab screen is performed using the Siemens PackLink HIV Ag/Ab Combo assay which detects the [...] referral for cessation counseling: no Note Recipients: Alisson Morton MD - [phone] Select "Yes" when ready to send to Provider(s) Listed Above: Note sent to providers named above Electronic Signatures: Alexys Scwhartz) (Signed 30-Jun-2019 11:34) Authored: History of Present Illness, Allergies and Outpatient Medication Profile, Problem List, Social History, Performance Assessments, Vitals and Measurements, Physical Exam, Results, Patient Instructions, To Send Document via Auto Fax Last Updated: 30-Jun-2019 11:34 by Alexys Schwartz) Normal [facility] Clinic Note - Heme Onc This report has b een cancelled. Normal [facility] Clinic Note - Intakeon 06-29 Clinic Note [...] using an assistive deviceno Adv Dir: Living [facility] Violence: Do you feel UNSAFE going back [...] Updated: 30-Jun-2019 10:14 by Sangeetha Shannon) Normal [facility] CBC AND DIFFERENTIALon 06-04 % AUTOMATED IMMATURE GRAN 0.3 % Normal 0.0 - 0.9 [facility] Comment on above: Result Comment: Apolonia ture Granulocyte Count (IG) includes promyelocytes, myelocytes and metamyelocytes but does not include bands. Percent differential counts (%) should be interpreted in the context of the absolute cell counts (cells/L). Performed By: #### C DF #### [facility] [address] [place] [address] Basophils (Bld) [#/Vol] 0.06 10*3/uL Normal 0.00 - 0.10 [facility] Comment on above: Performed By: #### C BCDF #### [facility] [address] [place] [address] Basophils/100 WBC (Bld) 1.0 % Normal 0.0 - 2.0 [facility] Comment on above: Performed By: #### C BCDF #### [facility] [address] [place] [address] Eosinophils (Bld) [#/Vol] 0.18 10*3/uL Normal 0.00 - 0.40 [facility] Comment on above: Performed By: #### C BCDF #### [facility] [address] [place] [address] Eosinophils/100 WBC (Bld) 3.0 % Normal 0.0 - 6.0 [facility] Comment on above: Performed By: #### C BCDF #### [facility] [address] [place] [address] Erythrocyte distribution width (RBC) [Ratio] 13.3 % Normal 11.5 - 14.5 [facility] Comment on above: Performed By: #### C BCDF #### [facility] [address] [place] [address] Hematocrit (Bld) [Volume fraction] 38.7 % Normal 36.0 - 46.0 [facility] Comment on above: Performed By: #### C BCDF #### [facility] [address] [place] [address] Hemoglobin (Bld) [Mass/Vol] 12.3 g/dL Normal 12.0 - 16.0 [facility] Comment on above: Performed By: #### C BCDF #### [facility] [address] [place] [address] Lymphocytes (Bld) [#/Vol] 1.17 10*3/uL Normal 0.80 - 3.00 [facility] Comment on above: Performed By: #### C BCDF #### [facility] [address] [place] [address] Lymphocytes/100 WBC (Bld) 19.8 % Normal 13.0 - 44.0 [facility] Comment on above: Performed By: #### C BCDF #### [facility] [address] [place] [address] MCHC (RBC) [Mass/Vol] 31.8 g/dL Low 32.0 - 36.0 [facility] Comment on above: Performed By: #### C BCDF #### [facility] [address] [place] [address] MCV (RBC) [Entitic vol] 97 fL Normal 80 - 100 [facility] Comment on above: Performed By: #### C BCDF #### [facility] [address] [place] [address] Monocytes (Bld) [#/Vol] 0.45 10*3/uL Normal 0.05 - 0.80 [facility] Comment on above: Performed By: #### C BCDF #### [facility] [address] [place] [address] Monocytes/100 WBC (Bld) 7.6 % Normal 2.0 - 10.0 [facility] Comment on above: Performed By: #### C BCDF #### [facility] [address] [place] [address] Neutrophils (Bld) [#/Vol] 4.04 10*3/uL Normal 1.60 - 5.50 [facility] Comment on above: Performed By: #### C BCDF #### [facility] [address] [place] [address] Neutrophils/100 WBC (Bld) 68.3 % Normal 40.0 - 80.0 [facility] Comment on above: Performed By: #### C BCDF #### [facility] [address] [place] [address] Nucleated RBC/100 WBC (Bld) [Ratio] 0.0 /100 WBC Normal 0.0-0.0 [facility] Comment on above: Performed By: #### C BCDF #### [facility] [address] [place] [address] Platelets (Bld) [#/Vol] 199 10*3/uL Normal 150 - 450 [facility] Comment on above: Performed By: #### C BCDF #### [facility] [address] [place] [address] RBC (Bld) [#/Vol] 3.98 x10E12/L Low 4.00 - 5.20 [facility] Comment on above: Performed By: #### C BCDF #### [facility] [address] [place] [address] WBC (Bld) [#/Vol] 5.9 10*3/uL Normal 4.4 - 11.3 [facility] Comment on above: Performed By: #### C BCDF #### [facility] [address] [place] [address] COMPREHENSIVE PANELon 2019 Albumin [Mass/Vol] 3.6 g/dL Normal 3.4 - 5.0 [facility] Comment on above: Performed By: #### C MP #### [facility] [address] [place] [address] ALP [Catalytic activity/Vol] 236 U/L High 33 - 136 [facility] Comment on above: Performed By: #### C MP #### [facility] [address] [place] [address] ALT [Catalytic activity/Vol] 77 U/L High 7 - 45 [facility] Comment on above: Result Comment: Lauren ents treated with Sulfasalazine may generate falsely decreased results for ALT. Performed By: #### C MP #### [facility] [address] [place] [address] Anion gap [Moles/Vol] 12 mmol/L Normal 10 - 20 [facility] Comment on above: Performed By: #### C MP #### [facility] [address] [place] [address] AST [Catalytic activity/Vol] 96 U/L High 9 - 39 [facility] Comment on above: Performed By: #### C MP #### [facility] [address] [place] [address] Bilirubin [Mass/Vol] 0.5 mg/dL Normal 0.0 - 1.2 [facility] Comment on above: Performed By: #### C MP #### [facility] [address] [place] [address] Calcium [Mass/Vol] 9.3 mg/dL Normal 8.6 - 10.6 [facility] Comment on above: Performed By: #### C MP #### [facility] [address] [place] [address] Chloride [Moles/Vol] 103 mmol/L Normal 98 - 107 [facility] Comment on above: Performed By: #### C MP #### [facility] [address] [place] [address] Creatinine [Mass/Vol] 0.72 mg/dL Normal 0.50 - 1.05 [facility] Comment on above: Performed By: #### C MP #### [facility] [address] [place] [address] GFR- AM. >60 Normal >60 [facility] Comment on above: Result Comment: CALC ULATIONS OF ESTIMATED GFR ARE PERFORMED USING THE MDRD STUDY EQUATION FOR THE IDMS-TRACEABLE CREATININE METHODS. CLIN CHEM 2007;53:766-72 Performed By: #### C MP #### [facility] [address] [place] [address] GFR-NON AM. >60 Normal >60 [facility] Comment on above: Performed By: #### C MP #### [facility] [address] [place] [address] Glucose [Mass/Vol] 140 mg/dL High 74 - 99 [facility] Comment on above: Performed By: #### C MP #### [facility] [address] [place] [address] HCO3 (Bld) [Moles/Vol] 31 mmol/L Normal 21 - 32 [facility] Comment on above: Performed By: #### C MP #### [facility] [address] [place] [address] Potassium [Moles/Vol] 4.1 mmol/L Normal 3.5 - 5.3 [facility] Comment on above: Performed By: #### C MP #### [facility] [address] [place] [address] Protein [Mass/Vol] 6.7 g/dL Normal 6.4 - 8.2 [facility] Comment on above: Performed By: #### C MP #### [facility] [address] [place] [address] Sodium [Moles/Vol] 142 mmol/L Normal 136 - 145 [facility] Comment on above: Performed By: #### C MP #### [facility] [address] [place] [address] Urea nitrogen [Mass/Vol] 21 mg/dL Normal 6 - 23 [facility] Comment on above: Performed By: #### C MP #### [facility] [address] [place] [address] CORTISOL,UNSPECIFIEDon 06-04 CORTISOL,UNSPECIFIED 23.2 ug/dL High 2.5 - 20.0 [facility] Comment on above: Performed By: #### C ORUN #### [facility] [address] [place] [address] HEMOGLOBIN A1Con 06-05-2019 HbA1c (Bld) [Mass fraction] 6.2 % Normal [facility] Comment on above: Result Comment: Diag nosis of Diabetes-Adults Non-Diabetic: < or = 5.6% Increased risk for developing diabetes: 5.7-6.4% Diagnostic of diabetes: > or = 6.5% . Monitoring of Diabetes Age (y) Therapeutic Goal (%) Adults: >18 <7.0 Pediatrics: 13-18 <7.5 7-12 <8.0 0- 6 7.5-8.5 [place] [employer]. Diabetes Care 33(S1), Feb 2009. Performed By: #### H BA1E #### [facility] [address] [place] [address] HbA1c (Bld) [Mass fraction] 131 MG/DL Normal [facility] Comment on above: Performed By: #### H BA1E #### [facility] [address] [place] [address] HIV ANTIGEN/ANTIBODY SCREENo n 06-05-2019 HIV AG/AB SCREEN NONREACTIVE Normal NONREACTIVE [facility] Comment on above: Result Comment: HIV Ag/Ab screen is performed using the Siemens EqvilibriallElephant.is HIV Ag/Ab Combo assay which detects the presence of HIV p24 antigen as well as antibodies to HIV-1 (Group M and O) and HIV-2. Performed By: #### H IV #### [facility] [address] [place], [place] LDHon 06-05-2019 LDH 161 U/L Normal 84 - 246 [facility] Comment on above: Performed By: #### L DH #### [facility] [address] [place], [place] TSH WITH REFLEX TO FREE T4 I F ABNORMALon 06-05-2019 TSH Qn 3.40 m[IU]/L Normal 0.44 - 3.98 [facility] Comment on above: Result Comment: Note new pediatric reference range as of 04/11/2019. TSH testing is performed using different testing methodology at [facility] than at other [facility]. Direct result comparisons should only be made within the same method. Performed By: #### T HYDS #### [facility] [address] [place], [place] Lab Specimen Source Normal [facility] Comment on above: Performed By: #### T HYDS #### [facility] [address] [place] [address] Performed By: #### C ORUN #### [facility] [address] [place], [place] Performed By: #### H IV #### [facility] [address] [place] [address] URINALYSISon 06-05-2019 Appearance (U) CLEAR Normal CLEAR [facility] Comment on above: Performed By: #### U A #### [facility] [address] [place] [address] Bilirubin (U) [Mass/Vol] Negative Normal NEGATIVE [facility] Comment on above: Performed By: #### U A #### [facility] [address] [place] [address] BLOOD Negative Normal NEGATIVE [facility] Comment on above: Performed By: #### U A #### [facility] [address] [place] [address] Color (U) YELLOW Normal STRAW,YELLOW [facility] Comment on above: Performed By: #### U A #### [facility] [address] [place] [address] Glucose [Mass/Vol] Negative Normal NEGATIVE [facility] Comment on above: Performed By: #### U A #### [facility] [address] [place] [address] Ketones Ql (U) Negative Normal NEGATIVE [facility] Comment on above: Performed By: #### U A #### [facility] [address] [place] [address] Leukocyte esterase Test strip Ql (U) Negative Normal NEGATIVE [facility] Comment on above: Performed By: #### U A #### [facility] [address] [place] [address] Nitrite Ql (U) Negative Normal NEGATIVE [facility] Comment on above: Performed By: #### U A #### [facility] [address] [place] [address] pH (Bld) 6.0 Normal 5.0 - 8.0 [facility] [facility] Comment on above: Performed By: #### U A #### [facility] [address] [place] [address] Protein (U) [Mass/Vol] Negative Normal NEGATIVE [facility] Comment on above: Performed By: #### U A #### [facility] [address] [place] [address] Specific gravity (U) [Rel density] 1.020 Normal 1.005 - 1.035 [facility] Comment on above: Performed By: #### U A #### [facility] [address] [place] [address] Urobilinogen Qn (U) <2.0 Normal 0.0 - 1.9 [facility] Comment on above: Performed By: #### U A #### [facility] [address] 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 at that time [...] had EGD 6 months ago either at [facility] or [facility] in July 2018 and had stent placed at [facility], at that time she was hypoxemic [...] EGD with the last 6 month at [facility] per daughter Family history Lung disease in father, mother had dementia Allergy She thinks that she is allergic to some sort of blood thinner when she was in the hospital in February 2019 at [facility] but is not sure REVIEW OF [...] 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 The patient verbally consented to visit. \\ Thank you very much for allowing me to participate in care of this patient, should you have any further question please do not hesitate to contact me. Charting was completed using voice recognition technology and may include unintended errors. Alexys Schwartz MD Hematology-Oncology [facility] Office [facility] Office Outpatient Medication Profile: * Patient [...] stools 3, and bilateral mammogram. Note Recipients: Alisson Morton MD - [phone] Select "Yes" when ready to send to Provider(s) Listed Above: Note sent to providers named above Electronic Signatures: Alexys Schwartz) (Signed 02-Jun-2019 13:20) Authored: Patient Visit Information, History of Present Illness, Allergies and Outpatient Medication Profile, Problem List, Social History, Physical Exam, Patient Instructions, To Send Document via Auto Fax Last Updated: 02-Jun-2019 13:20 by Alexys Schwartz) Normal [facility] CT Abdomen Pelvis W Contrast on 04-04-2019 Patient Name: RICARDO VILLALPANDO ---CT--- Exam Date/Time 04/04/2019 10:45:[address] Abdomen/Pelvis w/ IV Contrast (IV Onl Ordering Physician DO MORTON LISA Accession Number [id number] CPT4 Codes 96778 (CT Abdomen/Pelvis w/ IV Contrast (IV Onl) [...] JASON Transcribed Date and Time: 04/04/2019 2:56 [facility], [place] [facility], [facility] Incoming Radiology Results From [facility] - 04/04/2019 2:56 PM EST Patient Name: RICARDO VILLALPANDO ---CT--- Exam Date/Time 04/04/2019 10:45:[address] Abdomen/Pelvis w/ IV Contrast (IV Onl Ordering Physician DO MORTON LISA Accession Number [id number] CPT4 Codes 45369 (CT Abdomen/Pelvis w/ IV Contrast (IV Onl) [...] JASON Transcribed Date and Time: 04/04/2019 2:56 [place], [place] CT CHEST W CONTRASTon 2019 Patient Name: RICARDO VILLALPANDO ---CT--- Exam Date/Time 04/04/2019 10:45:[address] Chest w/ Contrast Ordering Physician DO MORTON LISA Accession Number [id number] CPT4 Codes 61917 (), Q9967 (CT ISOVUE 370MG/[id number]&ML&1 ) Reason For Exam abnormal weight loss [...] JASON Transcribed Date and Time: 04/04/2019 2:56 [facility] Incoming Radiology Results From [facility] - 04/04/2019 2:56 PM EST Patient Name: RICARDO VILLALPANDO ---CT--- Exam Date/Time 04/04/2019 10:45:[address] Chest w/ Contrast Ordering Physician DO MORTON LISA Accession Number [id number] CPT4 Codes 03799 (), Q9967 (CT ISOVUE 370MG/ML&[id number]&ML&1 ) Reason For Exam abnormal weight loss [...] JASON Transcribed Date and Time: 04/04/2019 2:56 [facility], [place] XR ELBOW MINIMUM 3 VIEWS [facility] 04-01-2019 XR ELBOW MINIMUM 3 VIEWS RIGHT [...] Date: 04/01/2019 8:02:36 AM Ordering Provider:Rakan Skelton [facility] [place] XR HAND MINIMUM 3 VIEWS RIGH Ton 04-01-2019 XR HAND MINIMUM 3 VIEWS [...] Date: 04/01/2019 8:04:33 AM Ordering Provider:Rakan Skelton [facility] Creatinine, Serumon 03-31-19 Creatinine [Mass/Vol] 0.77 mg/dL 0.52 - 1.25 mg/dL [place], [place] EGFR IF NonAfrican Macanese >60.0 >60 mL/min [place], [place] Comment on above: Source- MDRD equatio n with creatinine calibration to IDMS(NKDEP) eGFR not recommended for drug dose adjustment GFR/1.73 sq M predicted among blacks MDRD (S/P/Bld) [Vol rate/Area] mL/min/{1.73_m2} >60 mL/min [place], [place] Test Performed by [facility], [address] , [address] HEAD OR BRAIN W/O CONTRAS [...] By: Wes Baird MD Preliminary Report By: Ctay Cardona DO Electronically Signed By: Wes Baird MD Dictated Date: 02/24/2019 8:46:14 PM Prelim Date: 02/24/2019 8:48:29 PM Sign Date: 02/24/2019 8:54:43 PM Ordering Provider:Rakan Skelton [facility] CBC Auto DifferentialOrdered By: Gustavo Muniz on 02-18-2019 Absolute Baso # 0.1 10*3/uL 0 - 0.2 10*3/uL [facility] Work Phone: Absolute Neut # 10.3 10*3/uL High 1.8 - 7 10*3/uL [facility] Work Phone: Basophils/100 WBC (Bld) 0.5 % 0 - 2 % [facility] Work Phone: Eosinophils (Bld) [#/Vol] 0.2 10*3/uL 0 - 0.5 10*3/uL [facility] Work Phone: Eosinophils/100 WBC (Bld) 1.2 % 1 - 6 % [employer] Work Phone: [phone] Erythrocyte distribution width (RBC) [Ratio] 12.7 % 11.5 - 14.5 % [employer] Work Phone: [phone] Granulocytes/100 WBC (Bld) 78.0 % 40 - 80 % [employer] Work Phone: [phone] Hematocrit (Bld) [Volume fraction] 32.8 % Low 35 - 47 % [employer] Work Phone: [phone] Hemoglobin (Bld) [Mass/Vol] 11.3 g/dL Low 11.7 - 16 g/dL [employer] Work Phone: [phone] Interpretation and review of laboratory results Abnormal [employer] Work Phone: [phone] Lymphocytes (Bld) [#/Vol] 1.9 10*3/uL 1 - 4.3 10*3/uL [employer] Work Phone: [phone] Lymphocytes/100 WBC (Bld) 14.8 % Low 20 - 40 % [employer] Work Phone: [phone] MCH (RBC) [Entitic mass] 33.4 pg 26 - 34 pg [employer] Work Phone: [phone] MCHC 34.3 % 32 - 36 % [employer] Work Phone: [phone] 222 MCV (RBC) [Entitic vol] 97.3 fL 79 - 98 fL [employer] Work Phone: [phone] Monocytes (Bld) [#/Vol] 0.7 10*3/uL 0 - 0.8 10*3/uL [employer] Work Phone: [phone] 222 Monocytes/100 WBC (Bld) 5.5 % 2 - 10 % [employer] Work Phone: [phone] 222 Platelet mean volume (Bld) [Entitic vol] 10.6 fL High 7.4 - 10.4 fL [employer] Work Phone: [phone] 222 Platelets (Bld) [#/Vol] 207 10*3/uL 140 - 440 10*3/uL [employer] Work Phone: [phone] 222 RBC (Bld) [#/Vol] 3.37 10*6/uL Low 3.8 - 5.2 10*6/uL [facility] Work Phone: WBC (Bld) [#/Vol] 13.1 10*3/uL High 3.6 - 10.7 10*3/uL [facility] Work Phone: Test Performed by [facility], [address] [place] [address] [facility] Work Phone: Hemogram w/ Autodiffon 02-18 Abs Baso Cnt 0.1 10*3/uL Normal 0.0-0.2 [facility] Comment on above: Performed By: #### H EMDF, BMP3, LFT3, LIPA4, TROPN #### [address] [phone] Abs Neutrophile Cnt 10.3 10*3/uL High 1.8-7.[address] [facility] Comment on above: Performed By: #### H EMDF, BMP3, LFT3, LIPA4, TROPN #### [address] [address] Basophils/100 WBC (Bld) 0.5 % Normal 0.0-2.0 [facility] Comment on above: Performed By: #### H EMDF, BMP3, LFT3, LIPA4, TROPN #### [address] [address] Eosinophils (Bld) [#/Vol] 0.2 10*3/uL Normal 0.0-0.5 [facility] Comment on above: Performed By: #### H EMDF, BMP3, LFT3, LIPA4, TROPN #### [address] [address] Eosinophils/100 WBC (Bld) 1.2 % Normal 1.0-6.0 [facility] Comment on above: Performed By: #### H EMDF, BMP3, LFT3, LIPA4, TROPN #### [address] [address] Erythrocyte distribution width (RBC) [Ratio] 12.7 % Normal 11.5-14.5 [facility] Comment on above: Performed By: #### H EMDF, BMP3, LFT3, LIPA4, TROPN #### [address] [address] [place], [place] Granulocytes/100 WBC (Bld) 78.0 % Normal 40.0-80.0 [facility] Comment on above: Performed By: #### H EMDF, BMP3, LFT3, LIPA4, TROPN #### [address] [address] [place], [place] Hematocrit (Bld) [Volume fraction] 32.8 % Low 35.0-47.0 [facility] Comment on above: Performed By: #### H EMDF, BMP3, LFT3, LIPA4, TROPN #### [address] Hemoglobin (Bld) [Mass/Vol] 11.3 g/dL Low 11.7-16.0 [facility] Comment on above: Performed By: #### H EMDF, BMP3, LFT3, LIPA4, TROPN #### [address] [address] [address] [place], [place] Lymphocytes (Bld) [#/Vol] 1.9 10*3/uL Normal 1.0-4.3 [facility] Comment on above: Performed By: #### H EMDF, BMP3, LFT3, LIPA4, TROPN #### [address] Lymphocytes/100 WBC (Bld) 14.8 % Low 20.0-40.0 [facility] Comment on above: Performed By: #### H EMDF, BMP3, LFT3, LIPA4, TROPN #### [address] MCH (RBC) [Entitic mass] 33.4 pg Normal 26.0-34.0 [facility] Comment on above: Performed By: #### H EMDF, BMP3, LFT3, LIPA4, TROPN #### [address] [address] [place] [address] MCHC (RBC) [Mass/Vol] 34.3 % Normal 32.0-36.[address] [facility] Comment on above: Performed By: #### H EMDF, BMP3, LFT3, LIPA4, TROPN #### [address] MCV (RBC) [Entitic vol] 97.3 fL Normal 79.0-98.0 [facility] Comment on above: Performed By: #### H EMDF, BMP3, LFT3, LIPA4, TROPN #### [address] Monocytes (Bld) [#/Vol] 0.7 10*3/uL Normal 0.0-0.8 [facility] Comment on above: Performed By: #### H EMDF, BMP3, LFT3, LIPA4, TROPN #### [address] Monocytes/100 WBC (Bld) 5.5 % Normal 2.0-10.0 [facility] Comment on above: Performed By: #### H EMDF, BMP3, LFT3, LIPA4, TROPN #### [address] Platelet mean volume (Bld) [Entitic vol] 10.6 fL High 7.4-10.4 [facility] Comment on above: Performed By: #### H EMDF, BMP3, LFT3, LIPA4, TROPN #### [address] Platelets (Bld) [#/Vol] 207 10*3/uL Normal 140-440 [facility] Comment on above: Performed By: #### H EMDF, BMP3, LFT3, LIPA4, TROPN #### [address] RBC (Bld) [#/Vol] 3.37 10*6/uL Low 3.80-5.20 [facility] Comment on above: Performed By: #### H EMDF, BMP3, LFT3, LIPA4, TROPN #### [address] [address] [address] [place], [place] WBC (Bld) [#/Vol] 13.1 10*3/uL High 3.6-10.7 [facility] Comment on above: Performed By: #### H EMDF, BMP3, LFT3, LIPA4, TROPN #### [address] [address] [address] [place], [place] Lipaseon 02-18-2019 Lipase [Catalytic activity/Vol] 211 U/L Normal 23-300 [facility] Comment on above: Performed By: #### H EMDF, BMP3, LFT3, LIPA4, TROPN #### [address] [address] [place], [place] LipaseOrdered By: Gustavo Muniz on 02-18-2019 Lipase [Catalytic activity/Vol] 211 U/L 23 - 300 U/L [facility] Work Phone: Test Performed by [facility], [facility] [place], [place] [facility] Work Phone: Basic Metabolic Panelon 02-08 Calcium [Mass/Vol] 8.6 mg/dL Normal 8.4-10.4 [facility] Comment on above: Performed By: #### H EMDF, BMP3, LFT3, LIPA4, TROPN #### [address] [address] [address] [place], [place] Glucose [Mass/Vol] 125 mg/dL High 70-100 [facility] Comment on above: Performed By: #### H EMDF, BMP3, LFT3, LIPA4, TROPN #### [address] [address] [address] [place], [place] Urea nitrogen [Mass/Vol] 21 mg/dL High 7-20 [facility] Comment on above: Performed By: #### H EMDF, BMP3, LFT3, LIPA4, TROPN #### [address] [address] [place], [place] Anion gap [Moles/Vol] [address] [facility] Comment on above: Performed By: #### H EMDF, BMP3, LFT3, LIPA4, TROPN #### [address] CO2 [Moles/Vol] 24 mmol/L Normal 22-30 [facility] Comment on above: Performed By: #### H EMDF, BMP3, LFT3, LIPA4, TROPN #### [address] Creatinine [Mass/Vol] 0.81 mg/dL Normal 0.52-1.[address] [facility] Comment on above: Performed By: #### H EMDF, BMP3, LFT3, LIPA4, TROPN #### [address] GFR/1.73 sq M predicted among blacks MDRD (S/P/Bld) [Vol rate/Area] mL/min/{1.73_m2} Normal >60 [facility] Comment on above: Performed By: #### H EMDF, BMP3, LFT3, LIPA4, TROPN #### [address] GFR/1.73 sq M predicted among non-blacks MDRD (S/P/Bld) [Vol rate/Area] mL/min/{1.73_m2} Normal >60 [facility] Comment on above: Result Comment: Sour ce- MDRD equation with creatinine calibration to IDMS(NKDEP) eGFR not recommended for drug dose adjustment Performed By: #### H EMDF, BMP3, LFT3, LIPA4, TROPN #### [address] Chloride [Moles/Vol] 106 mmol/L Normal 98-107 [facility] Comment on above: Performed By: #### H EMDF, BMP3, LFT3, LIPA4, TROPN #### [address] Potassium [Moles/Vol] 4.1 mmol/L Normal 3.5-5.[address] [facility] Comment on above: Performed By: #### H EMDF, BMP3, LFT3, LIPA4, TROPN #### [facility] [address] [place] [address] Sodium [Moles/Vol] 139 mmol/L Normal 135-145 [facility] Comment on above: Performed By: #### H EMDF, BMP3, LFT3, LIPA4, TROPN #### [facility] [address] [place] [address] Basic Metabolic PanelOrdered By: Gustavo Muniz on 02-17-2019 Anion gap [Moles/Vol] 9 mmol/L [facility] Work Phone: [phone] Calcium [Mass/Vol] 8.6 mg/dL 8.4 - 10. 4 mg/dL [facility] Work Phone: ) [phone] Chloride [Moles/Vol] 106 mmol/L 98 - 10 7 mmol/L [facility] Work Phone: ) [phone] CO2 [Moles/Vol] 24 mmol/L 22 - 30 mmol/L [facility] Work Phone: [phone] Creatinine [Mass/Vol] 0.81 mg/dL 0.52 - 1.25 mg/dL [facility] Work Phone: [phone] EGFR IF NonAfrican Macanese >60.0 >60 mL/min [facility] Work Phone: [phone] Comment on above: Source- MDRD equatio n with creatinine calibration to IDMS(NKDEP) eGFR not recommended for drug dose adjustment GFR/1.73 sq M.predicted among blacks MDRD (S/P/Bld) [Vol rate/Area] mL/min/{1.73_m2} >60 mL/min [facility] Work Phone: [phone] Glucose [Mass/Vol] 125 mg/dL High 70 - 100 mg/dL [facility] Work Phone: [phone] Potassium [Moles/Vol] 4.1 mmol/L 3.5 - 5.1 mmol/L [facility] Work Phone: [phone] Sodium [Moles/Vol] 139 mmol/L 135 - 145 mmol/L [facility] Work Phone: [phone] Urea nitrogen [Mass/Vol] 21 mg/dL High 7 - 20 mg/dL [facility] Work Phone: [phone] CBC Auto DifferentialOrdered By: Gustavo Muniz on 02-17-2019 Absolute Baso # 0.0 10*3/uL 0 - 0.2 10*3/uL [facility] Work Phone: [phone] Absolute Neut # 15.9 10*3/uL High 1.8 - 7 10*3/uL [facility] Work Phone: [phone] Basophils/100 WBC (Bld) 0.3 % 0 - 2 % [facility] Work Phone: [phone] Eosinophils (Bld) [#/Vol] 0.1 10*3/uL 0 - 0.5 10*3/uL [facility] Work Phone: [phone] Eosinophils/100 WBC (Bld) 0.5 % Low 1 - 6 % [facility] Work Phone: [phone] Erythrocyte distribution width (RBC) [Ratio] 12.6 % 11.5 - 14.5 % [employer] Work Phone: [phone] Granulocytes/100 WBC (Bld) 83.5 % High 40 - 80 % [facility] Work Phone: [phone] Hematocrit (Bld) [Volume fraction] 34.3 % Low 35 - 47 % [facility] Work Phone: [phone] Hemoglobin (Bld) [Mass/Vol] 11.6 g/dL Low 11.7 - 16 g/dL [employer] Work Phone: [phone] Interpretation and review of laboratory results Abnormal [employer] Work Phone: [phone] Lymphocytes (Bld) [#/Vol] 1.7 10*3/uL 1 - 4.3 10*3/uL [facility] Work Phone: [phone] Lymphocytes/100 WBC (Bld) 9.1 % Low 20 - 40 % [facility] Work Phone: [phone] MCH (RBC) [Entitic mass] 32.7 pg 26 - 34 pg [facility] Work Phone: [phone] MCHC 33.9 % 32 - 36 % [facility] Work Phone: [phone] MCV (RBC) [Entitic vol] 96.5 fL 79 - 98 fL [facility] Work Phone: [phone] Monocytes (Bld) [#/Vol] 1.3 10*3/uL High 0 - 0.8 10*3/uL [employer] Work Phone: [phone] Monocytes/100 WBC (Bld) 6.6 % 2 - 10 % [employer] Work Phone: [phone] Platelet mean volume (Bld) [Entitic vol] 10.3 fL 7.4 - 10.4 fL [employer] Work Phone: [phone] Platelets (Bld) [#/Vol] 244 10*3/uL 140 - 440 10*3/uL [employer] Work Phone: [phone] RBC (Bld) [#/Vol] 3.56 10*6/uL Low 3.8 - 5.2 10*6/uL [employer] Work Phone: [phone] WBC (Bld) [#/Vol] 19.0 10*3/uL High 3.6 - 10.7 10*3/uL [employer] Work Phone: [phone] Test Performed by [facility], [address] [place] [address] [facility] Work [facility]: [phone] Hemogram w/ Autodiffon 02-17 Abs Baso Cnt 0.0 10*3/uL Normal 0.0-0.2 [facility] Comment on above: Performed By: #### H EMDF, BMP3, LFT3, LIPA4, TROPN #### [facility] [address] [address] Abs Neutrophile Cnt 15.9 10*3/uL High 1.8-7.[address] [facility] Comment on above: Performed By: #### H EMDF, BMP3, LFT3, LIPA4, TROPN #### [facility] [address] [address] Basophils/100 WBC (Bld) 0.3 % Normal 0.0-2.0 [facility] Comment on above: Performed By: #### H EMDF, BMP3, LFT3, LIPA4, TROPN #### [facility] [address] [address] Eosinophils (Bld) [#/Vol] 0.1 10*3/uL Normal 0.0-0.5 [facility] Comment on above: Performed By: #### H EMDF, BMP3, LFT3, LIPA4, TROPN #### [address] Eosinophils/100 WBC (Bld) 0.5 % Low 1.0-6.0 [facility] Comment on above: Performed By: #### H EMDF, BMP3, LFT3, LIPA4, TROPN #### [address] Erythrocyte distribution width (RBC) [Ratio] 12.6 % Normal 11.5-14.5 [facility] Comment on above: Performed By: #### H EMDF, BMP3, LFT3, LIPA4, TROPN #### [address] Granulocytes/100 WBC (Bld) 83.5 % High 40.0-80.0 [facility] Comment on above: Performed By: #### H EMDF, BMP3, LFT3, LIPA4, TROPN #### [address] Hematocrit (Bld) [Volume fraction] 34.3 % Low 35.0-47.0 [facility] Comment on above: Performed By: #### H EMDF, BMP3, LFT3, LIPA4, TROPN #### [address] Hemoglobin (Bld) [Mass/Vol] 11.6 g/dL Low 11.7-16.0 [facility] Comment on above: Performed By: #### H EMDF, BMP3, LFT3, LIPA4, TROPN #### [address] Lymphocytes (Bld) [#/Vol] 1.7 10*3/uL Normal 1.0-4.3 [facility] Comment on above: Performed By: #### H EMDF, BMP3, LFT3, LIPA4, TROPN #### [address] [place], [place] Lymphocytes/100 WBC (Bld) 9.1 % Low 20.0-40.0 [facility] Comment on above: Performed By: #### H EMDF, BMP3, LFT3, LIPA4, TROPN #### [address] MCH (RBC) [Entitic mass] 32.7 pg Normal 26.0-34.0 [facility] Comment on above: Performed By: #### H EMDF, BMP3, LFT3, LIPA4, TROPN #### [address] MCHC (RBC) [Mass/Vol] 33.9 % Normal 32.0-36.[address] [facility] Comment on above: Performed By: #### H EMDF, BMP3, LFT3, LIPA4, TROPN #### [address] MCV (RBC) [Entitic vol] 96.5 fL Normal 79.0-98.0 [facility] Comment on above: Performed By: #### H EMDF, BMP3, LFT3, LIPA4, TROPN #### [address] Monocytes (Bld) [#/Vol] 1.3 10*3/uL High 0.0-0.8 [facility] Comment on above: Performed By: #### H EMDF, BMP3, LFT3, LIPA4, TROPN #### [address] Monocytes/100 WBC (Bld) 6.6 % Normal 2.0-10.0 [facility] Comment on above: Performed By: #### H EMDF, BMP3, LFT3, LIPA4, TROPN #### [address] Platelet mean volume (Bld) [Entitic vol] 10.3 fL Normal 7.4-10.4 [facility] Comment on above: Performed By: #### H EMDF, BMP3, LFT3, LIPA4, TROPN #### [facility] [address] [place], [place] Platelets (Bld) [#/Vol] 244 10*3/uL Normal 140-440 [facility] Comment on above: Performed By: #### H EMDF, BMP3, LFT3, LIPA4, TROPN #### [address] [address] [address] [place], [place] RBC (Bld) [#/Vol] 3.56 10*6/uL Low 3.80-5.20 [facility] Comment on above: Performed By: #### H EMDF, BMP3, LFT3, LIPA4, TROPN #### [address] [address] [address] [place], [place] WBC (Bld) [#/Vol] 19.0 10*3/uL High 3.6-10.7 [facility] Comment on above: Performed By: #### H EMDF, BMP3, LFT3, LIPA4, TROPN #### [address] [address] [address] [place], [place] Hepatic Functionon 0 ALP [Catalytic activity/Vol] 75 U/L Normal 38-126 [facility] Comment on above: Performed By: #### H EMDF, BMP3, LFT3, LIPA4, TROPN #### [address] [address] [address] [place], [place] ALT [Catalytic activity/Vol] 60 U/L Normal 13-69 [facility] Comment on above: Performed By: #### H EMDF, BMP3, LFT3, LIPA4, TROPN #### [address] [address] [address] [place], [place] AST [Catalytic activity/Vol] 62 U/L High 15-46 [facility] Comment on above: Performed By: #### H EMDF, BMP3, LFT3, LIPA4, TROPN #### [address] [address] [address] [place], [place] Bilirubin [Mass/Vol] 0.5 mg/dL Normal 0.2-1.3 [facility] Comment on above: Performed By: #### H EMDF, BMP3, LFT3, LIPA4, TROPN #### [address] [address] [address] [place], [place] Bilirubin.direct [Mass/Vol] 0.0 mg/dL Normal 0.0-0.3 [facility] Comment on above: Performed By: #### H EMDF, BMP3, LFT3, LIPA4, TROPN #### [address] [address] [address] [place], [place] Protein [Mass/Vol] 5.9 g/dL Low 6.3-8.2 [facility] Comment on above: Performed By: #### H EMDF, BMP3, LFT3, LIPA4, TROPN #### [address] [address] [address] [place], [place] Albumin [Mass/Vol] 3.2 g/dL Low 3.5-5.0 [facility] Comment on above: Performed By: #### H EMDF, BMP3, LFT3, LIPA4, TROPN #### [address] [address] [address] [place], [place] Hepatic Function PanelOrdere d By: Gustavo Muniz on 02-17-2019 Albumin [Mass/Vol] 3.2 g/dL Low 3.5 - 5 g/dL [facility] Work Phone: [phone] ALP [Catalytic activity/Vol] 75 U/L 38 - 126 U/L [facility] Work Phone: [phone] ALT [Catalytic activity/Vol] 60 U/L 13 - 69 U/L [facility] Work Phone: [phone] AST [Catalytic activity/Vol] 62 U/L High 15 - 46 U/L [facility] Work Phone: [phone] Bilirubin [Mass/Vol] 0.5 mg/dL 0.2 - 1 .3 mg/dL [facility] Work Phone: [phone] Bilirubin.indirect [Mass/Vol] 0.0 mg/dL 0 - 0.3 mg/dL [facility] Work Phone: Protein [Mass/Vol] 5.9 g/dL Low 6.3 - 8.2 g/dL [facility] Work Phone: Lipaseon 02-17-2019 Lipase [Catalytic activity/Vol] 586 U/L High 23-300 [facility] Comment on above: Performed By: #### H EMDF, BMP3, LFT3, LIPA4, TROPN #### [facility] [address] [place] [address] LipaseOrdered By: Gustavo Muniz on 02-17-2019 Lipase [Catalytic activity/Vol] 586 U/L High 23 - 300 U/L [facility] Work Phone: No Panel InformationOrdered By: Gustavo Muniz on 02-17-2019 Interpretation and review of laboratory results Abnormal [facility] Work Phone: Test Performed by [facility], [address] [place] [address] [facility] Work Phone: Basic Metabolic Panelon Calcium [Mass/Vol] 9.4 mg/dL Normal 8.4-10.4 [facility] Comment on above: Performed By: #### H EMDF, BMP3, LFT3, LIPA4, TROPN #### [place] [address] [place], [place] Glucose [Mass/Vol] 182 mg/dL High 70-100 [facility] Comment on above: Performed By: #### H EMDF, BMP3, LFT3, LIPA4, TROPN #### [address] [address] [place] [address] Urea nitrogen [Mass/Vol] 13 mg/dL Normal 7-20 [facility] Comment on above: Performed By: #### H EMDF, BMP3, LFT3, LIPA4, TROPN #### [place] [address] [place], [place] Anion gap [Moles/Vol] [address] [facility] Comment on above: Performed By: #### H EMDF, BMP3, LFT3, LIPA4, TROPN #### [address] [place] [address] [place], [place] CO2 [Moles/Vol] 25 mmol/L Normal 22-30 [facility] Comment on above: Performed By: #### H EMDF, BMP3, LFT3, LIPA4, TROPN #### [address] [place], [place] Creatinine [Mass/Vol] 0.74 mg/dL Normal 0.52-1.[address] [facility] Comment on above: Performed By: #### H EMDF, BMP3, LFT3, LIPA4, TROPN #### [address] [place], [place] GFR/1.73 sq M predicted among blacks MDRD (S/P/Bld) [Vol rate/Area] mL/min/{1.73_m2} Normal >60 [facility] Comment on above: Performed By: #### H EMDF, BMP3, LFT3, LIPA4, TROPN #### [address] [address] [place], [place] GFR/1.73 sq M predicted among non-blacks MDRD (S/P/Bld) [Vol rate/Area] mL/min/{1.73_m2} Normal >60 [facility] Comment on above: Result Comment: Sour ce- MDRD equation with creatinine calibration to IDMS(NKDEP) eGFR not recommended for drug dose adjustment Performed By: #### H EMDF, BMP3, LFT3, LIPA4, TROPN #### [address] [address] [place], [place] Potassium [Moles/Vol] 4.2 mmol/L Normal 3.5-5.[address] [facility] Comment on above: Performed By: #### H EMDF, BMP3, LFT3, LIPA4, TROPN #### [address] [address] [place], [place] Sodium [Moles/Vol] 140 mmol/L Normal 135-145 [facility] Comment on above: Performed By: #### H EMDF, BMP3, LFT3, LIPA4, TROPN #### [address] [address] [place], [place] Chloride [Moles/Vol] 105 mmol/L Normal 98-107 [facility] Comment on above: Performed By: #### H EMDF, BMP3, LFT3, LIPA4, TROPN #### [facility] [employer] [facility] [address] [place] [address] Basic Metabolic PanelOrdered By: Sharmila Lr on 02-16-2019 Anion gap [Moles/Vol] 11 mmol/L [facility] Work Phone: [phone] Calcium [Mass/Vol] 9.4 mg/dL 8.4 - 10. 4 mg/dL [facility] Work Phone: [phone] Chloride [Moles/Vol] 105 mmol/L 98 - 10 7 mmol/L [facility] Work Phone: [phone] CO2 [Moles/Vol] 25 mmol/L 22 - 30 mmol/L [facility] Work Phone: [phone] Creatinine [Mass/Vol] 0.74 mg/dL 0.52 - 1.25 mg/dL [facility] Work Phone: [phone] EGFR IF NonAfrican Macanese >60.0 >60 mL/min [facility] Work Phone: [phone] Comment on above: Source- MDRD equatio n with creatinine calibration to IDMS(NKDEP) eGFR not recommended for drug dose adjustment GFR/1.73 sq M.predicted among blacks MDRD (S/P/Bld) [Vol rate/Area] mL/min/{1.73_m2} >60 mL/min [facility] Work Phone: [phone] Glucose [Mass/Vol] 182 mg/dL High 70 - 100 mg/dL [facility] Work Phone: [phone] Potassium [Moles/Vol] 4.2 mmol/L 3.5 - 5.1 mmol/L [facility] Work Phone: [phone] Sodium [Moles/Vol] 140 mmol/L 135 - 145 mmol/L [facility] Work Phone: [phone] Urea nitrogen [Mass/Vol] 13 mg/dL 7 - 20 mg/dL [facility] Work Phone: [phone] CBC Auto DifferentialOrdered By: Sharmila Lr on 02-16-2019 Erythrocyte distribution width (RBC) [Ratio] 12.3 % 11.5 - 14.5 % [facility] Work Phone: [phone] Hematocrit (Bld) [Volume fraction] 37.3 % 35 - 47 % [facility] Work Phone: [phone] Hemoglobin (Bld) [Mass/Vol] 12.6 g/dL 11.7 - 16 g/dL [facility] Work Phone: [phone] Interpretation and review of laboratory results Abnormal [facility] Work Phone: [phone] MCH (RBC) [Entitic mass] 32.8 pg 26 - 34 pg [facility] Work Phone: [phone] MCHC 33.8 % 32 - 36 % [facility] Work Phone: [phone] MCV (RBC) [Entitic vol] 97.2 fL 79 - 98 fL [facility] Work Phone: [phone] Platelet mean volume (Bld) [Entitic vol] 10.1 fL 7.4 - 10.4 fL [facility] Work Phone: [phone] Platelets (Bld) [#/Vol] 210 10*3/uL 140 - 440 10*3/uL [facility] Work Phone: [phone] RBC (Bld) [#/Vol] 3.84 10*6/uL 3.8 - 5.2 10*6/uL [facility] Work Phone: [phone] WBC (Bld) [#/Vol] 22.3 10*3/uL High 3.6 - 10.7 10*3/uL [facility] Work Phone: [phone] Test Performed by [facility] [place] [employer] [facility], [address] [place] [address] [facility] Work Phone: [phone] Hemogram w/ Autodiffon 02-16 Erythrocyte distribution width (RBC) [Ratio] 12.3 % Normal 11.5-14.5 [facility] Comment on above: Performed By: #### H EMDF, BMP3, LFT3, LIPA4, TROPN #### [facility] [address] [place] [phone] Hematocrit (Bld) [Volume fraction] 37.3 % Normal 35.0-47.0 [facility] Comment on above: Performed By: #### H EMDF, BMP3, LFT3, LIPA4, TROPN #### [address] [address] [place], [place] Hemoglobin (Bld) [Mass/Vol] 12.6 g/dL Normal 11.7-16.0 [facility] Comment on above: Performed By: #### H EMDF, BMP3, LFT3, LIPA4, TROPN #### [address] [address] [place], [place] MCH (RBC) [Entitic mass] 32.8 pg Normal 26.0-34.0 [facility] Comment on above: Performed By: #### H EMDF, BMP3, LFT3, LIPA4, TROPN #### [address] MCHC (RBC) [Mass/Vol] 33.8 % Normal 32.0-36.[address] [facility] Comment on above: Performed By: #### H EMDF, BMP3, LFT3, LIPA4, TROPN #### [address] MCV (RBC) [Entitic vol] 97.2 fL Normal 79.0-98.0 [facility] Comment on above: Performed By: #### H EMDF, BMP3, LFT3, LIPA4, TROPN #### [address] Platelet mean volume (Bld) [Entitic vol] 10.1 fL Normal 7.4-10.4 [facility] Comment on above: Performed By: #### H EMDF, BMP3, LFT3, LIPA4, TROPN #### [address] [address] [place], [place] Platelets (Bld) [#/Vol] 210 10*3/uL Normal 140-440 [facility] Comment on above: Performed By: #### H EMDF, BMP3, LFT3, LIPA4, TROPN #### [address] RBC (Bld) [#/Vol] 3.84 10*6/uL Normal 3.80-5.20 [facility] Comment on above: Performed By: #### H EMDF, BMP3, LFT3, LIPA4, TROPN #### [address] [address] [place], [place] WBC (Bld) [#/Vol] 22.3 10*3/uL High 3.6-10.7 [facility] Comment on above: Performed By: #### H EMDF, BMP3, LFT3, LIPA4, TROPN #### [address] [address] [place], [place] Hepatic Functionon 0 ALP [Catalytic activity/Vol] 83 U/L Normal 38-126 [facility] Comment on above: Performed By: #### H EMDF, BMP3, LFT3, LIPA4, TROPN #### [address] [address] [place], [place] ALT [Catalytic activity/Vol] 81 U/L High 13-69 [facility] Comment on above: Performed By: #### H EMDF, BMP3, LFT3, LIPA4, TROPN #### [address] [address] [place], [place] AST [Catalytic activity/Vol] 100 U/L High 15-46 [facility] Comment on above: Performed By: #### H EMDF, BMP3, LFT3, LIPA4, TROPN #### [address] [place], [place] Bilirubin [Mass/Vol] 0.5 mg/dL Normal 0.2-1.3 [facility] Comment on above: Performed By: #### H EMDF, BMP3, LFT3, LIPA4, TROPN #### [address] [place], [place] Protein [Mass/Vol] 6.7 g/dL Normal 6.3-8.2 [facility] Comment on above: Performed By: #### H EMDF, BMP3, LFT3, LIPA4, TROPN #### [address] [address] [place], [place] Bilirubin.direct [Mass/Vol] 0.0 mg/dL Normal 0.0-0.3 [facility] Comment on above: Performed By: #### H EMDF, BMP3, LFT3, LIPA4, TROPN #### [facility] [address] [place], [place] Albumin [Mass/Vol] 3.9 g/dL Normal 3.5-5.0 [facility] Comment on above: Performed By: #### H EMDF, BMP3, LFT3, LIPA4, TROPN #### [facility] [address] [place], [place] Hepatic Function PanelOrdere d By: Sharmila Lr on 02-16-2019 Albumin [Mass/Vol] 3.9 g/dL 3.5 - 5 g/dL [facility] Work Phone: ALP [Catalytic activity/Vol] 83 U/L 38 - 126 U/L [facility] Work Phone: ALT [Catalytic activity/Vol] 81 U/L High 13 - 69 U/L [facility] Work Phone: AST [Catalytic activity/Vol] 100 U/L High 15 - 46 U/L [facility] Work Phone: Bilirubin [Mass/Vol] 0.5 mg/dL 0.2 - 1 .3 mg/dL [facility] Work Phone: Bilirubin.indirect [Mass/Vol] 0.0 mg/dL 0 - 0.3 mg/dL [facility] Work Phone: Protein [Mass/Vol] 6.7 g/dL 6.3 - 8.2 g/dL [facility] Work Phone: Lipaseon 02-16-2019 Lipase [Catalytic activity/Vol] 1101 U/L High 23-300 [facility] Comment on above: Performed By: #### H EMDF, BMP3, LFT3, LIPA4, TROPN #### [facility] [address] [place] [address] LipaseOrdered By: Gustavo Muniz on 02-16-2019 Interpretation and review of laboratory results Abnormal [facility] Work Phone: Lipase [Catalytic activity/Vol] 1101 U/L High 23 - 300 U/L [facility] Work Phone: Test Performed by [facility], [address] [place], [place] [id number] [place] [address] Work Phone: Manual Diffon 02-16-2019 Abs Lymph Cnt 0.9 10*3/uL Low 1.1-4.5 [facility] Comment on above: Performed By: #### H EMDF, BMP3, LFT3, LIPA4, TROPN #### [address] Abs Monocyte Cnt 0.9 10*3/uL Normal 0.2-1.1 [facility] Comment on above: Performed By: #### H EMDF, BMP3, LFT3, LIPA4, TROPN #### [address] Abs Neutrophile Cnt 20.5 10*3/uL High 2.2-8.[address] [facility] Comment on above: Performed By: #### H EMDF, BMP3, LFT3, LIPA4, TROPN #### [address] Bands 15 % High 0-3 [facility] Comment on above: Performed By: #### H EMDF, BMP3, LFT3, LIPA4, TROPN #### [address] Lymphocytes 4 % Low 20-40 [facility] Comment on above: Performed By: #### H EMDF, BMP3, LFT3, LIPA4, TROPN #### [address] Monocytes 4 % Normal 2-10 [facility] Comment on above: Performed By: #### H EMDF, BMP3, LFT3, LIPA4, TROPN #### [address] RBC morphology finding Nom (Bld) Normal Normal [facility] Comment on above: Performed By: #### H EMDF, BMP3, LFT3, LIPA4, TROPN #### [facility] [address], [place] Seg Neutrophils 77 % Normal 40-80 [facility] Comment on above: Performed By: #### H EMDF, BMP3, LFT3, LIPA4, TROPN #### [facility] [address], [place] Abs Baso Cnt 0.0 10*3/uL Normal 0.0-0.2 [facility] Comment on above: Performed By: #### H EMDF, BMP3, LFT3, LIPA4, TROPN #### [facility] [address] [place], [place] Abs Eosin Cnt 0.0 10*3/uL Normal 0.0-0.5 [facility] Comment on above: Performed By: #### H EMDF, BMP3, LFT3, LIPA4, TROPN #### [address] [address] [place], [place] Basophils 0 % Normal 0-2 [facility] Comment on above: Performed By: #### H EMDF, BMP3, LFT3, LIPA4, TROPN #### [facility] [address] [place], [place] Cells counted 100 Normal [facility] Comment on above: Performed By: #### H EMDF, BMP3, LFT3, LIPA4, TROPN #### [facility] [address] [place], [place] Eosinophils 0 % Low 1-6 [facility] Comment on above: Performed By: #### H EMDF, BMP3, LFT3, LIPA4, TROPN #### [facility] [address], [place] Manual DifferentialOrdered B y: Lisa Smiley on 02-16-2019 Absolute Baso # 0.0 10*3/uL 0 - 0.2 10*3/uL [facility] Work Phone: Absolute Eos # 0.0 10*3/uL 0 - 0.5 10*3/uL [facility] Work Phone: Absolute Lymph # 0.9 10*3/uL Low 1.1 - 4.5 10*3/uL [facility] Work Phone: [phone] Absolute [place] # 0.9 10*3/uL 0.2 - 1.1 10*3/uL [facility] Work Phone: [phone] Absolute Neut # 20.5 10*3/uL High 2.2 - 8.2 10*3/uL [facility] Work Phone: [phone] Bands 15 % High 0 - 3 % [facility] Work Phone: Basophils 0 % 0 - 2 % [facility] Work Phone: [phone] Eosinophils 0 % Low 1 - 6 % [facility] Work Phone: [phone] Interpretation and review of laboratory results Abnormal [facility] Work Phone: [phone] Lymphocytes 4 % Low 20 - 40 % [facility] Work Phone: [phone] Monocytes 4 % 2 - 10 % [facility] Work Phone: [phone] RBC Morphology Normal [facility] Work Phone: [phone] Seg Neutrophils 77 % 40 - 80 % [facility] Work Phone: [phone] TOTAL CELLS COUNTED 100 [facility] Work Phone: Test Performed by [employer], [address] [place] [address] [employer] Work Phone: No Panel InformationOrdered By: Sharmila Lr on 02-16-2019 Interpretation and review of laboratory results Abnormal [employer] Work Phone: Test Performed by [employer], [address] [place] [phone] [employer] Work Phone: Basic Metabolic Panelon Calcium [Mass/Vol] 9.6 mg/dL Normal 8.4-10.4 [employer] Comment on above: Performed By: #### H EMDF, BMP3, LFT3, LIPA4, TROPN #### [employer] [address] [place] [phone] Glucose [Mass/Vol] 110 mg/dL High 70-100 [employer] Comment on above: Performed By: #### H EMDF, BMP3, LFT3, LIPA4, TROPN #### [address] [address] [place], [place] Urea nitrogen [Mass/Vol] 10 mg/dL Normal 7-20 [facility] Comment on above: Performed By: #### H EMDF, BMP3, LFT3, LIPA4, TROPN #### [address] [address] [place], [place] Anion gap [Moles/Vol] [address] [facility] Comment on above: Performed By: #### H EMDF, BMP3, LFT3, LIPA4, TROPN #### [address] [address] [place], [place] CO2 [Moles/Vol] 28 mmol/L Normal 22-30 [facility] Comment on above: Performed By: #### H EMDF, BMP3, LFT3, LIPA4, TROPN #### [address] Creatinine [Mass/Vol] 0.87 mg/dL Normal 0.52-1.[address] [facility] Comment on above: Performed By: #### H EMDF, BMP3, LFT3, LIPA4, TROPN #### [address] [address] [place], [place] GFR/1.73 sq M predicted among blacks MDRD (S/P/Bld) [Vol rate/Area] mL/min/{1.73_m2} Normal >60 [facility] Comment on above: Performed By: #### H EMDF, BMP3, LFT3, LIPA4, TROPN #### [address] [place], [place] GFR/1.73 sq M predicted among non-blacks MDRD (S/P/Bld) [Vol rate/Area] mL/min/{1.73_m2} Normal >60 [facility] Comment on above: Result Comment: Sour ce- MDRD equation with creatinine calibration to IDMS(NKDEP) eGFR not recommended for drug dose adjustment Performed By: #### H EMDF, BMP3, LFT3, LIPA4, TROPN #### [address] [place] [address] Chloride [Moles/Vol] 104 mmol/L Normal 98-107 [facility] Comment on above: Performed By: #### H EMDF, BMP3, LFT3, LIPA4, TROPN #### [facility] [address] [place], [place] Potassium [Moles/Vol] 4.0 mmol/L Normal 3.5-5.[address] [facility] Comment on above: Performed By: #### H EMDF, BMP3, LFT3, LIPA4, TROPN #### [facility] [address] [place] [address] Sodium [Moles/Vol] 141 mmol/L Normal 135-145 [facility] Comment on above: Performed By: #### H EMDF, BMP3, LFT3, LIPA4, TROPN #### [address] [address] [place], [place] Basic Metabolic PanelOrdered By: Mark Chen on 02-15-2019 Anion gap [Moles/Vol] 8 mmol/L [facility] Work Phone: Calcium [Mass/Vol] 9.6 mg/dL 8.4 - 10. 4 mg/dL [facility] Work Phone: Chloride [Moles/Vol] 104 mmol/L 98 - 10 7 mmol/L [facility] Work Phone: CO2 [Moles/Vol] 28 mmol/L 22 - 30 mmol/L [facility] Work Phone: Creatinine [Mass/Vol] 0.87 mg/dL 0.52 - 1.25 mg/dL [facility] Work Phone: EGFR IF NonAfrican Macanese >60.0 >60 mL/min [facility] Work Phone: Comment on above: Source- MDRD equatio n with creatinine calibration to IDMS(NKDEP) eGFR not recommended for drug dose adjustment GFR/1.73 sq M.predicted among blacks MDRD (S/P/Bld) [Vol rate/Area] mL/min/{1.73_m2} >60 mL/min [facility] Work Phone: Glucose [Mass/Vol] 110 mg/dL High 70 - 100 mg/dL [facility] Work Phone: [phone] Potassium [Moles/Vol] 4.0 mmol/L 3.5 - 5.1 mmol/L [facility] Work Phone: [phone] Sodium [Moles/Vol] 141 mmol/L 135 - 145 mmol/L [facility] Work Phone: [phone] Urea nitrogen [Mass/Vol] 10 mg/dL 7 - 20 mg/dL [facility] Work Phone: [phone] CBC Auto DifferentialOrdered By: Mark Chen on 02-15-2019 Absolute Baso # 0.1 10*3/uL 0 - 0.2 10*3/uL [facility] Work Phone: [phone] Absolute Neut # 5.0 10*3/uL 1.8 - 7 10*3/uL [facility] Work Phone: [phone] Basophils/100 WBC (Bld) 0.9 % 0 - 2 % [facility] Work Phone: [phone] Eosinophils (Bld) [#/Vol] 0.2 10*3/uL 0 - 0.5 10*3/uL [facility] Work Phone: [phone] Eosinophils/100 WBC (Bld) 3.0 % 1 - 6 % [facility] Work Phone: [phone] Erythrocyte distribution width (RBC) [Ratio] 12.1 % 11.5 - 14.5 % [facility] Work Phone: [phone] Granulocytes/100 WBC (Bld) 67.7 % 40 - 80 % [facility] Work Phone: [phone] Hematocrit (Bld) [Volume fraction] 36.6 % 35 - 47 % [facility] Work Phone: [phone] Hemoglobin (Bld) [Mass/Vol] 12.8 g/dL 11.7 - 16 g/dL [facility] Work Phone: [phone] Lymphocytes (Bld) [#/Vol] 1.6 10*3/uL 1 - 4.3 10*3/uL [facility] Work Phone: [phone] Lymphocytes/100 WBC (Bld) 21.4 % 20 [...] Work Phone: [phone] Test Performed by [facility], [address] [place] [address] [facility] Work Phone: [phone] FL ERCP BILIARY AND PANCREAT IC S&IOrdered By: Lisa Smiley on 02-15-2019 Patient Name: RICARDO VILLALPANDO ---Fluoroscopy--- Exam Date/Time 02/15/2019 08:51:55 EST Exam RF ERCP Biliary and Pancreatic Duct Ordering Physician [id number] LISA RODRIGEZ Accession Number [id number] CTP4 Codes 65262 () Reason For Exam cbd stones Report [...] Time: 02/15/2019 8:39 [facility] Work Phone: [facility], [facility] Incoming [facility] Results From [facility] - 02/15/2019 8:52 AM EST Patient Name: RICARDO VILLALPANDO ---Fluoroscopy--- Exam Date/Time 02/15/2019 08:51:55 EST Exam RF ERCP Biliary and Pancreatic Duct Ordering Physician LISA RICH Accession Number [id number] CTP4 Codes 48319 () Reason For Exam cbd stones Report [...] JEFFREY Transcribed Date and Time: 02/15/2019 8:39 [facility] Work Phone: Hemogram w/ Autodiffon 02-15 Abs Baso Cnt 0.1 10*3/uL Normal 0.0-0.2 [facility] Comment on above: Performed By: #### H EMDF, BMP3, LFT3, LIPA4, TROPN #### [address] [address] [place] [address] Abs Neutrophile Cnt 5.0 10*3/uL Normal 1.8-7.0 [facility] Comment on above: Performed By: #### H EMDF, BMP3, LFT3, LIPA4, TROPN #### [address] [address] [place], [place] Basophils/100 WBC (Bld) 0.9 % Normal 0.0-2.0 [facility] Comment on above: Performed By: #### H EMDF, BMP3, LFT3, LIPA4, TROPN #### [address] [address] [place], [place] Eosinophils (Bld) [#/Vol] 0.2 10*3/uL Normal 0.0-0.5 [facility] Comment on above: Performed By: #### H EMDF, BMP3, LFT3, LIPA4, TROPN #### [address] [address] Eosinophils/100 WBC (Bld) 3.0 % Normal 1.0-6.0 [facility] Comment on above: Performed By: #### H EMDF, BMP3, LFT3, LIPA4, TROPN #### [address] Erythrocyte distribution width (RBC) [Ratio] 12.1 % Normal 11.5-14.5 [facility] Comment on above: Performed By: #### H EMDF, BMP3, LFT3, LIPA4, TROPN #### [address] [address] Granulocytes/100 WBC (Bld) 67.7 % Normal 40.0-80.0 [facility] Comment on above: Performed By: #### H EMDF, BMP3, LFT3, LIPA4, TROPN #### [address] [address] [place], [place] Hematocrit (Bld) [Volume fraction] 36.6 % Normal 35.0-47.0 [facility] Comment on above: Performed By: #### H EMDF, BMP3, LFT3, LIPA4, TROPN #### [address] [address] [place], [place] Hemoglobin (Bld) [Mass/Vol] 12.8 g/dL Normal 11.7-16.0 [facility] Comment on above: Performed By: #### H EMDF, BMP3, LFT3, LIPA4, TROPN #### [address] Lymphocytes (Bld) [#/Vol] 1.6 10*3/uL Normal 1.0-4.3 [facility] Comment on above: Performed By: #### H EMDF, BMP3, LFT3, LIPA4, TROPN #### [address] Lymphocytes/100 WBC (Bld) 21.4 % Normal 20.0-40.0 [facility] Comment on above: Performed By: #### H EMDF, BMP3, LFT3, LIPA4, TROPN #### [address] MCH (RBC) [Entitic mass] 32.9 pg Normal 26.0-34.0 [facility] Comment on above: Performed By: #### H EMDF, BMP3, LFT3, LIPA4, TROPN #### [address] MCHC (RBC) [Mass/Vol] 34.8 % Normal 32.0-36.[address] [facility] Comment on above: Performed By: #### H EMDF, BMP3, LFT3, LIPA4, TROPN #### [address] MCV (RBC) [Entitic vol] 94.4 fL Normal 79.0-98.0 [facility] Comment on above: Performed By: #### H EMDF, BMP3, LFT3, LIPA4, TROPN #### [address] Monocytes (Bld) [#/Vol] 0.5 10*3/uL Normal 0.0-0.8 [facility] Comment on above: Performed By: #### H EMDF, BMP3, LFT3, LIPA4, TROPN #### [address] Monocytes/100 WBC (Bld) 7.0 % Normal 2.0-10.0 [facility] Comment on above: Performed By: #### H EMDF, BMP3, LFT3, LIPA4, TROPN #### [address] Platelet mean volume (Bld) [Entitic vol] 10.3 fL Normal 7.4-10.4 [facility] Comment on above: Performed By: #### H EMDF, BMP3, LFT3, LIPA4, TROPN #### [address] Platelets (Bld) [#/Vol] 223 10*3/uL Normal 140-440 [facility] Comment on above: Performed By: #### H EMDF, BMP3, LFT3, LIPA4, TROPN #### [address] RBC (Bld) [#/Vol] 3.88 10*6/uL Normal 3.80-5.20 [facility] Comment on above: Performed By: #### H EMDF, BMP3, LFT3, LIPA4, TROPN #### [address] WBC (Bld) [#/Vol] 7.4 10*3/uL Normal 3.6-10.7 [facility] Comment on above: Performed By: #### H EMDF, BMP3, LFT3, LIPA4, TROPN #### [facility] [address], [place] Hepatic Functionon 0 ALP [Catalytic activity/Vol] 94 U/L Normal 38-126 [facility] Comment on above: Performed By: #### H EMDF, BMP3, LFT3, LIPA4, TROPN #### [facility] [address], [place] ALT [Catalytic activity/Vol] 76 U/L High 13-69 [facility] Comment on above: Performed By: #### H EMDF, BMP3, LFT3, LIPA4, TROPN #### [address] [address] [place], [place] AST [Catalytic activity/Vol] 80 U/L High 15-46 [facility] Comment on above: Performed By: #### H EMDF, BMP3, LFT3, LIPA4, TROPN #### [address] [address] [place], [place] Bilirubin [Mass/Vol] 0.6 mg/dL Normal 0.2-1.3 [facility] Comment on above: Performed By: #### H EMDF, BMP3, LFT3, LIPA4, TROPN #### [address] [address] [place], [place] Protein [Mass/Vol] 7.0 g/dL Normal 6.3-8.2 [facility] Comment on above: Performed By: #### H EMDF, BMP3, LFT3, LIPA4, TROPN #### [address] [address] [place], [place] Bilirubin.direct [Mass/Vol] 0.0 mg/dL Normal 0.0-0.3 [facility] Comment on above: Performed By: #### H EMDF, BMP3, LFT3, LIPA4, TROPN #### [address] [address] [place], [place] Albumin [Mass/Vol] 3.7 g/dL Normal 3.5-5.0 [facility] Comment on above: Performed By: #### H EMDF, BMP3, LFT3, LIPA4, TROPN #### [address] [id number] Hepatic Function PanelOrdere d By: Sharmila Lr on 02-15-2019 Albumin [Mass/Vol] 3.7 g/dL 3.5 - 5 g/dL [facility] Work Phone: ALP [Catalytic activity/Vol] 94 U/L 38 - 126 U/L [facility] Work Phone: ALT [Catalytic activity/Vol] 76 U/L High 13 - 69 U/L [facility] Work Phone: AST [Catalytic activity/Vol] 80 U/L High 15 - 46 U/L [facility] Work Phone: Bilirubin [Mass/Vol] 0.6 mg/dL 0.2 - 1 .3 mg/dL [facility] Work Phone: Bilirubin.indirect [Mass/Vol] 0.0 mg/dL 0 - 0.3 mg/dL [facility] Work Phone: Protein [Mass/Vol] 7.0 g/dL 6.3 - 8.2 g/dL [facility] Work Phone: No Panel InformationOrdered By: Mark Chen on 02-15-2019 Interpretation and review of laboratory results Abnormal [facility] Work Phone: Test Performed by [facility], [address] [place] [id number] [facility] Work Phone: RF ERCP Biliary and Pancreat ic Ducton 02-15-2019 RF ERCP Biliary and Pancreatic Duct Patient Name: RICARDO VILLALPANDO Fluoroscopy Exam Date/Time 02/15/2019 08:51:55 EST Exam RF ERCP Biliary and Pancreatic Duct Ordering Physician LISA RICH Accession Number [id number] CTP4 Codes [id number] () Reason For Exam cbd stones Report [...] Date and Time: 02/15/2019 8:39 Normal [facility] Surgical Pathologyon 020 Surgical Pathology [id number] [facility] PATHOLOGY AND LABORATORY MEDICINE [address] [place] [address] FINAL SURGICAL PATHOLOGY REPORT NAME: RICARDO VILLALPANDO : 1940 78 Y F BILLING NO.: [id number] LOCATION: [place] [id number] PROCEDURE 02/15/2019 DATE: SURGEON: OSMAR ANDERSON M.D. RECEIVED 02/16/2019 DATE: ATTENDING: GUSTAVO MUNIZ MD REPORT DATE: 02/21/2019 COPIES TO: [...] are identified impacted within the cystic duct. Film Tests Checker sections are submitted in a single cassette. (bits ss, 1) JCK/TRELL Disclaimer: The following statement applies to all immunohistochemistry, in situ hybridization, molecular studies, and immunofluorescence testing. The use of one or more reagents in the above tests is regulated as an analyte specific reagent (ASR). These tests were developed and their performance characteristics determined by the clinical laboratories of [facility]. They have not been cleared by [...] negativity on decalcified specimens. Professional Performing Location: [address] [address]. DEPARTMENT OF PATHOLOGY AND LABORATORY MEDICINE [place], [place] [address] Normal [facility] TS GELon 02-15-2019 TS GEL ABO Group: O Rh, Gel: POS Antibody Screen Gel: NEG Normal [facility] Comment on above: Performed By: #### H EMDF, BMP3, LFT3, LIPA4, TROPN #### [employer] [place] [address] TYPE AND SCREENOrdered By: Tyrone Chen on 02-15-2019 ABO Grouping O [facility] Work Phone: Rh Type Positive [facility] Work Phone: Comment on above: Test Performed by [facility], [address] [place] [id number] Test Performed by [facility], [address] [place] [address] [facility] Work Phone: Potassiumon 02-14-2019 Potassium [Moles/Vol] 3.8 mmol/L Normal 3.5-5.[address] [facility] Comment on above: Performed By: #### H EMDF, BMP3, LFT3, LIPA4, TROPN #### [facility] [employer] [facility] [place], [place] PotassiumOrdered By: Luciano Muniz on 02-14-2019 Potassium [Moles/Vol] 3.8 mmol/L 3.5 - 5.1 mmol/L [employer] Work Phone: Test Performed by [facility], [address] [place] [address] [facility] Work Phone: Basic Metabolic Panelon Anion gap [Moles/Vol] [address] [facility] Comment on above: Performed By: #### H EMDF, BMP3, LFT3, LIPA4, TROPN #### [employer] [facility] [place] Calcium [Mass/Vol] 9.0 mg/dL Normal 8.4-10.4 [facility] Comment on above: Performed By: #### H EMDF, BMP3, LFT3, LIPA4, TROPN #### [employer] [facility] [place] CO2 [Moles/Vol] 26 mmol/L Normal 22-30 [facility] Comment on above: Performed By: #### H EMDF, BMP3, LFT3, LIPA4, TROPN #### [address] [address] [place], [place] Glucose [Mass/Vol] 93 mg/dL Normal 70-100 [facility] Comment on above: Performed By: #### H EMDF, BMP3, LFT3, LIPA4, TROPN #### [address] [address] [place], [place] Urea nitrogen [Mass/Vol] 6 mg/dL Low 7-20 [facility] Comment on above: Performed By: #### H EMDF, BMP3, LFT3, LIPA4, TROPN #### [address] [address] [place], [place] Creatinine [Mass/Vol] 0.68 mg/dL Normal 0.52-1.[address] [facility] Comment on above: Performed By: #### H EMDF, BMP3, LFT3, LIPA4, TROPN #### [address] [address] [place], [place] GFR/1.73 sq M predicted among blacks MDRD (S/P/Bld) [Vol rate/Area] mL/min/{1.73_m2} Normal >60 [facility] Comment on above: Performed By: #### H EMDF, BMP3, LFT3, LIPA4, TROPN #### [address] [address] [place], [place] GFR/1.73 sq M predicted among non-blacks MDRD (S/P/Bld) [Vol rate/Area] mL/min/{1.73_m2} Normal >60 [facility] Comment on above: Result Comment: Sour ce- MDRD equation with creatinine calibration to IDMS(NKDEP) eGFR not recommended for drug dose adjustment Performed By: #### H EMDF, BMP3, LFT3, LIPA4, TROPN #### [address] Chloride [Moles/Vol] 108 mmol/L High 98-107 [facility] Comment on above: Performed By: #### H EMDF, BMP3, LFT3, LIPA4, TROPN #### [facility] [address] [place], [place] Potassium [Moles/Vol] 3.4 mmol/L Low 3.5-5.[address] [facility] Comment on above: Performed By: #### H EMDF, BMP3, LFT3, LIPA4, TROPN #### [facility] [address] [place], [place] Sodium [Moles/Vol] 142 mmol/L Normal 135-145 [facility] Comment on above: Performed By: #### H EMDF, BMP3, LFT3, LIPA4, TROPN #### [facility] [address] [place], [place] Basic Metabolic Panel w/ Ref tere to MGOrdered By: Gem Lowery on 02-13-2019 Anion gap [Moles/Vol] 7 mmol/L [facility] Work Phone: Calcium [Mass/Vol] 9.0 mg/dL 8.4 - 10. 4 mg/dL [facility] Work Phone: Chloride [Moles/Vol] 108 mmol/L High 98 - 10 7 mmol/L [facility] Work Phone: CO2 [Moles/Vol] 26 mmol/L 22 - 30 mmol/L [facility] Work Phone: Creatinine [Mass/Vol] 0.68 mg/dL 0.52 - 1.25 mg/dL [facility] Work Phone: EGFR IF NonAfrican Macanese >60.0 >60 mL/min [facility] Work Phone: Comment on above: Source- MDRD equatio n with creatinine calibration to IDMS(NKDEP) eGFR not recommended for drug dose adjustment GFR/1.73 sq M.predicted among blacks MDRD (S/P/Bld) [Vol rate/Area] mL/min/{1.73_m2} >60 mL/min [facility] Work Phone: [phone] Glucose [Mass/Vol] 93 mg/dL 70 - 100 mg/dL [facility] Work Phone: Potassium [Moles/Vol] 3.4 mmol/L Low 3.5 - 5.1 mmol/L [employer] Work Phone: [phone] Sodium [Moles/Vol] 142 mmol/L 135 - 145 mmol/L [facility] Work Phone: [phone] Urea nitrogen [Mass/Vol] 6 mg/dL Low 7 - 20 mg/dL [employer] Work Phone: [phone] CBC Auto DifferentialOrdered By: Gem Lowery on 02-13-2019 Absolute Baso # 0.1 10*3/uL 0 - 0.2 10*3/uL [employer] Work Phone: [phone] Absolute Neut # 3.9 10*3/uL 1.8 - 7 10*3/uL [employer] Work Phone: ) 222 Basophils/100 WBC (Bld) 1.1 % 0 - 2 % [employer] Work Phone: ) 222 Eosinophils (Bld) [#/Vol] 0.2 10*3/uL 0 - 0.5 10*3/uL [employer] Work Phone: [phone] Eosinophils/100 WBC (Bld) 3.4 % 1 - 6 % [employer] Work Phone: [phone] Erythrocyte distribution width (RBC) [Ratio] 12.3 % 11.5 - 14.5 % [employer] Work Phone: ) 222 Granulocytes/100 WBC (Bld) 68.3 % 40 - 80 % [employer] Work Phone: ) 222 Hematocrit (Bld) [Volume fraction] 32.8 % Low 35 - 47 % [facility] Work Phone: [phone] Hemoglobin (Bld) [Mass/Vol] 11.6 g/dL Low 11.7 - 16 g/dL [employer] Work Phone: [phone] Interpretation and review of laboratory results Abnormal [employer] Work Phone: ) 222 Lymphocytes (Bld) [#/Vol] 1.1 10*3/uL 1 - 4.3 10*3/uL [employer] Work Phone: [phone] Lymphocytes/100 WBC (Bld) 18.6 % Low 20 - 40 % [employer] Work Phone: [phone] MCH (RBC) [Entitic mass] 33.3 pg 26 - 34 pg [employer] Work Phone: MCHC 35.2 % 32 - 36 % [facility] Work Phone: [phone] MCV (RBC) [Entitic vol] 94.4 fL 79 - 98 fL [employer] Work Phone: [phone] Monocytes (Bld) [#/Vol] 0.5 10*3/uL 0 - 0.8 10*3/uL [employer] Work Phone: [phone] Monocytes/100 WBC (Bld) 8.6 % 2 - 10 % [employer] Work Phone: [phone] Platelet mean volume (Bld) [Entitic vol] 10.1 fL 7.4 - 10.4 fL [facility] Work Phone: [phone] Platelets (Bld) [#/Vol] 196 10*3/uL 140 - 440 10*3/uL [employer] Work Phone: [phone] RBC (Bld) [#/Vol] 3.48 10*6/uL Low 3.8 - 5.2 10*6/uL [employer] Work Phone: [phone] WBC (Bld) [#/Vol] 5.7 10*3/uL 3.6 - 10.7 10*3/uL [employer] Work Phone: [phone] Test Performed by [facility], [address] [place] [address] [facility] Work Phone: [phone] Hemogram w/ Autodiffon 02-13 Abs Baso Cnt 0.1 10*3/uL Normal 0.0-0.2 [facility] Comment on above: Performed By: #### H EMDF, BMP3, LFT3, LIPA4, TROPN #### [facility] [employer] [address] [place] [phone] Abs Neutrophile Cnt 3.9 10*3/uL Normal 1.8-7.0 [facility] Comment on above: Performed By: #### H EMDF, BMP3, LFT3, LIPA4, TROPN #### [facility] [address] [place] [address] Basophils/100 WBC (Bld) 1.1 % Normal 0.0-2.0 [facility] Comment on above: Performed By: #### H EMDF, BMP3, LFT3, LIPA4, TROPN #### [address] Eosinophils (Bld) [#/Vol] 0.2 10*3/uL Normal 0.0-0.5 [facility] Comment on above: Performed By: #### H EMDF, BMP3, LFT3, LIPA4, TROPN #### [address] Eosinophils/100 WBC (Bld) 3.4 % Normal 1.0-6.0 [facility] Comment on above: Performed By: #### H EMDF, BMP3, LFT3, LIPA4, TROPN #### [address] Erythrocyte distribution width (RBC) [Ratio] 12.3 % Normal 11.5-14.5 [facility] Comment on above: Performed By: #### H EMDF, BMP3, LFT3, LIPA4, TROPN #### [address] Granulocytes/100 WBC (Bld) 68.3 % Normal 40.0-80.0 [facility] Comment on above: Performed By: #### H EMDF, BMP3, LFT3, LIPA4, TROPN #### [address] Hematocrit (Bld) [Volume fraction] 32.8 % Low 35.0-47.0 [facility] Comment on above: Performed By: #### H EMDF, BMP3, LFT3, LIPA4, TROPN #### [address] Hemoglobin (Bld) [Mass/Vol] 11.6 g/dL Low 11.7-16.0 [facility] Comment on above: Performed By: #### H EMDF, BMP3, LFT3, LIPA4, TROPN #### [address] [address] [place], [place] Lymphocytes (Bld) [#/Vol] 1.1 10*3/uL Normal 1.0-4.3 [facility] Comment on above: Performed By: #### H EMDF, BMP3, LFT3, LIPA4, TROPN #### [address] Lymphocytes/100 WBC (Bld) 18.6 % Low 20.0-40.0 [facility] Comment on above: Performed By: #### H EMDF, BMP3, LFT3, LIPA4, TROPN #### [address] MCH (RBC) [Entitic mass] 33.3 pg Normal 26.0-34.0 [facility] Comment on above: Performed By: #### H EMDF, BMP3, LFT3, LIPA4, TROPN #### [address] MCHC (RBC) [Mass/Vol] 35.2 % Normal 32.0-36.[address] [facility] Comment on above: Performed By: #### H EMDF, BMP3, LFT3, LIPA4, TROPN #### [address] MCV (RBC) [Entitic vol] 94.4 fL Normal 79.0-98.0 [facility] Comment on above: Performed By: #### H EMDF, BMP3, LFT3, LIPA4, TROPN #### [address] Monocytes (Bld) [#/Vol] 0.5 10*3/uL Normal 0.0-0.8 [facility] Comment on above: Performed By: #### H EMDF, BMP3, LFT3, LIPA4, TROPN #### [address] Monocytes/100 WBC (Bld) 8.6 % Normal 2.0-10.0 [facility] Comment on above: Performed By: #### H EMDF, BMP3, LFT3, LIPA4, TROPN #### [facility] [address] [place] [place], [place] Platelet mean volume (Bld) [Entitic vol] 10.1 fL Normal 7.4-10.4 [facility] Comment on above: Performed By: #### H EMDF, BMP3, LFT3, LIPA4, TROPN #### [facility] [address] [place] [place], [place] Platelets (Bld) [#/Vol] 196 10*3/uL Normal 140-440 [facility] Comment on above: Performed By: #### H EMDF, BMP3, LFT3, LIPA4, TROPN #### [facility] [address] [place] [place], [place] RBC (Bld) [#/Vol] 3.48 10*6/uL Low 3.80-5.20 [facility] Comment on above: Performed By: #### H EMDF, BMP3, LFT3, LIPA4, TROPN #### [address] [address] [place], [place] WBC (Bld) [#/Vol] 5.7 10*3/uL Normal 3.6-10.7 [facility] Comment on above: Performed By: #### H EMDF, BMP3, LFT3, LIPA4, TROPN #### [facility] [address] [place] [place], [place] Hepatic Functionon 0 ALP [Catalytic activity/Vol] 77 U/L Normal 38-126 [facility] Comment on above: Performed By: #### H EMDF, BMP3, LFT3, LIPA4, TROPN #### [facility] [address] [place] [place], [place] ALT [Catalytic activity/Vol] 66 U/L Normal 13-69 [facility] Comment on above: Performed By: #### H EMDF, BMP3, LFT3, LIPA4, TROPN #### [facility] [address] [place] [place], [place] AST [Catalytic activity/Vol] 62 U/L High 15-46 [facility] Comment on above: Performed By: #### H EMDF, BMP3, LFT3, LIPA4, TROPN #### [address] [address] [place], [place] Bilirubin [Mass/Vol] 0.7 mg/dL Normal 0.2-1.3 [facility] Comment on above: Performed By: #### H EMDF, BMP3, LFT3, LIPA4, TROPN #### [address] [address] [place], [place] Protein [Mass/Vol] 5.8 g/dL Low 6.3-8.2 [facility] Comment on above: Performed By: #### H EMDF, BMP3, LFT3, LIPA4, TROPN #### [address] [address] [place], [place] Bilirubin.direct [Mass/Vol] 0.0 mg/dL Normal 0.0-0.3 [facility] Comment on above: Performed By: #### H EMDF, BMP3, LFT3, LIPA4, TROPN #### [address] [address] [place], [place] Albumin [Mass/Vol] 3.0 g/dL Low 3.5-5.0 [facility] Comment on above: Performed By: #### H EMDF, BMP3, LFT3, LIPA4, TROPN #### [address] [place] [address] [place], [place] Hepatic Function PanelOrdere d By: Gem Lowery on 02-13-2019 Albumin [Mass/Vol] 3.0 g/dL Low 3.5 - 5 g/dL [facility] Work Phone: ALP [Catalytic activity/Vol] 77 U/L 38 - 126 U/L [facility] Work Phone: ALT [Catalytic activity/Vol] 66 U/L 13 - 69 U/L [facility] Work Phone: AST [Catalytic activity/Vol] 62 U/L High 15 - 46 U/L [facility] Work Phone: Bilirubin [Mass/Vol] 0.7 mg/dL 0.2 - 1 .3 mg/dL [facility] Work Phone: [phone] Bilirubin.indirect [Mass/Vol] 0.0 mg/dL 0 - 0.3 mg/dL [facility] Work Phone: [phone] Protein [Mass/Vol] 5.8 g/dL Low 6.3 - 8.2 g/dL [facility] Work Phone: Magnesiumon 02-13-2019 Magnesium [Mass/Vol] 1.7 mg/dL Normal 1.6-2.3 [facility] Comment on above: Performed By: #### H EMDF, BMP3, LFT3, LIPA4, TROPN #### [facility] [employer] [address] [address] [place] [address] MagnesiumOrdered By: Maria C Lowery on 02-13-2019 Magnesium [Mass/Vol] 1.7 mg/dL 1.6 - 2 .3 mg/dL [facility] Work Phone: Test Performed by [facility], [address] [place] [id number] [place], [place] [id number] Work Phone: No Panel InformationOrdered By: Gem Lowery on 02-13-2019 Interpretation and review of laboratory results Abnormal [facility] Work Phone: Test Performed by [facility], [address] [place] [phone] [place], [place] [address] Work Phone: Add On Lab TestOrdered By: Juana Lowery on 02-12-2019 Add On Accepted [facility] Work Phone: Comment on above: Specimen available & acceptable for analysis. Test Performed by [facility], [address] [place] [id number] [place], [place] [address]A Work Phone: Add on test from HISon 02-12 Add on test from HIS Accepted Normal [facility] Comment on above: Result Comment: Spec imen available & acceptable for analysis. Performed By: #### H EMDF, BMP3, LFT3, LIPA4, TROPN #### [facility] [employer] [address] [address] [place] [address] Bilirubin, DirectOrdered By: Sonny Peres on 02-12-2019 Bilirubin.indirect [Mass/Vol] 0.0 mg/dL 0 - 0.3 mg/dL [employer] Work Phone: [phone] Bilirubin,Directon 0 Bilirubin.direct [Mass/Vol] 0.0 mg/dL Normal 0.0-0.3 [employer] Comment on above: Performed By: #### H EMDF, BMP3, LFT3, LIPA4, TROPN #### [employer] [address] [place] [address] CBC auto differentialOrdered By: Sonny Peres on 02-12-2019 Absolute Baso # 0.1 10*3/uL 0 - 0.2 10*3/uL [employer] Work Phone: [phone] Absolute Neut # 4.0 10*3/uL 1.8 - 7 10*3/uL [employer] Work Phone: 222 Basophils/100 WBC (Bld) 0.9 % 0 - 2 % [employer] Work Phone: 222 Eosinophils (Bld) [#/Vol] 0.2 10*3/uL 0 - 0.5 10*3/uL [employer] Work Phone: [phone] Eosinophils/100 WBC (Bld) 3.4 % 1 - 6 % [employer] Work Phone: 222 Erythrocyte distribution width (RBC) [Ratio] 12.4 % 11.5 - 14.5 % [employer] Work Phone: 222 Granulocytes/100 WBC (Bld) 71.5 % 40 - 80 % [employer] Work Phone: 222 Hematocrit (Bld) [Volume fraction] 32.5 % Low 35 - 47 % [employer] Work Phone: 222 Hemoglobin (Bld) [Mass/Vol] 11.1 g/dL Low 11.7 - 16 g/dL [employer] Work Phone: [phone] Interpretation and review of laboratory results Abnormal [employer] Work Phone: 222 Lymphocytes (Bld) [#/Vol] 1.0 10*3/uL 1 - 4.3 10*3/uL [employer] Work Phone: [phone] Lymphocytes/100 WBC (Bld) 17.7 % Low 20 - 40 % [facility] Work Phone: [phone] MCH (RBC) [Entitic mass] 33.0 pg 26 - 34 pg [facility] Work Phone: [phone] MCHC 34.2 % 32 - 36 % [facility] Work Phone: [phone] MCV (RBC) [Entitic vol] 96.5 fL 79 - 98 fL [employer] Work Phone: [phone] Monocytes (Bld) [#/Vol] 0.4 10*3/uL 0 - 0.8 10*3/uL [employer] Work Phone: [phone] Monocytes/100 WBC (Bld) 6.5 % 2 - 10 % [employer] Work Phone: [phone] Platelet mean volume (Bld) [Entitic vol] 10.3 fL 7.4 - 10.4 fL [employer] Work Phone: [phone] Platelets (Bld) [#/Vol] 163 10*3/uL 140 - 440 10*3/uL [facility] Work Phone: [phone] RBC (Bld) [#/Vol] 3.37 10*6/uL Low 3.8 - 5.2 10*6/uL [employer] Work Phone: [phone] WBC (Bld) [#/Vol] 5.5 10*3/uL 3.6 - 10.7 10*3/uL [employer] Work Phone: [phone] Test Performed by [facility], [address] [place] [id number] [facility] Work Phone: [phone] Comp Panel with Mg Reflexon 02-12-2019 ALP [Catalytic activity/Vol] 86 U/L Normal 38-126 [facility] Comment on above: Performed By: #### H EMDF, BMP3, LFT3, LIPA4, TROPN #### [facility] [address] [address] ALT [Catalytic activity/Vol] 81 U/L High 13-69 [facility] Comment on above: Performed By: #### H EMDF, BMP3, LFT3, LIPA4, TROPN #### [address] [place] [address] [place], [place] Anion gap [Moles/Vol] [address] [facility] Comment on above: Performed By: #### H EMDF, BMP3, LFT3, LIPA4, TROPN #### [address] [address] [place], [place] AST [Catalytic activity/Vol] 87 U/L High 15-46 [facility] Comment on above: Performed By: #### H EMDF, BMP3, LFT3, LIPA4, TROPN #### [address] Bilirubin [Mass/Vol] 0.6 mg/dL Normal 0.2-1.3 [facility] Comment on above: Performed By: #### H EMDF, BMP3, LFT3, LIPA4, TROPN #### [address] [address] [place], [place] Calcium [Mass/Vol] 8.8 mg/dL Normal 8.4-10.4 [facility] Comment on above: Performed By: #### H EMDF, BMP3, LFT3, LIPA4, TROPN #### [address] CO2 [Moles/Vol] 27 mmol/L Normal 22-30 [facility] Comment on above: Performed By: #### H EMDF, BMP3, LFT3, LIPA4, TROPN #### [address] [address] [place], [place] Glucose [Mass/Vol] 84 mg/dL Normal 70-100 [facility] Comment on above: Performed By: #### H EMDF, BMP3, LFT3, LIPA4, TROPN #### [address] Protein [Mass/Vol] 5.5 g/dL Low 6.3-8.2 [facility] Comment on above: Performed By: #### H EMDF, BMP3, LFT3, LIPA4, TROPN #### [address] Urea nitrogen [Mass/Vol] 11 mg/dL Normal 7-20 [facility] Comment on above: Performed By: #### H EMDF, BMP3, LFT3, LIPA4, TROPN #### [address] Creatinine [Mass/Vol] 0.78 mg/dL Normal 0.52-1.[address] [facility] Comment on above: Performed By: #### H EMDF, BMP3, LFT3, LIPA4, TROPN #### [address] GFR/1.73 sq M predicted among blacks MDRD (S/P/Bld) [Vol rate/Area] mL/min/{1.73_m2} Normal >60 [facility] Comment on above: Performed By: #### H EMDF, BMP3, LFT3, LIPA4, TROPN #### [address] GFR/1.73 sq M predicted among non-blacks MDRD (S/P/Bld) [Vol rate/Area] mL/min/{1.73_m2} Normal >60 [facility] Comment on above: Result Comment: Sour ce- MDRD equation with creatinine calibration to IDMS(NKDEP) eGFR not recommended for drug dose adjustment Performed By: #### H EMDF, BMP3, LFT3, LIPA4, TROPN #### [address] Albumin [Mass/Vol] 2.9 g/dL Low 3.5-5.0 [facility] Comment on above: Performed By: #### H EMDF, BMP3, LFT3, LIPA4, TROPN #### [address] Chloride [Moles/Vol] 110 mmol/L High 98-107 [facility] Comment on above: Performed By: #### H EMDF, BMP3, LFT3, LIPA4, TROPN #### [address] Potassium [Moles/Vol] 3.6 mmol/L Normal 3.5-5.1 [facility] Comment on above: Performed By: #### H EMDF, BMP3, LFT3, LIPA4, TROPN #### [facility] [employer] [facility] [address] [place], [place] Sodium [Moles/Vol] 142 mmol/L Normal 135-145 [facility] Comment on above: Performed By: #### H EMDF, BMP3, LFT3, LIPA4, TROPN #### [facility] [employer] [facility] [address] [place], [place] Comprehensive Metabolic Pane l w/ Reflex to MGOrdered By: Sonny Peres on 02-12-2019 Albumin [Mass/Vol] 2.9 g/dL Low 3.5 - 5 g/dL [facility] Work Phone: [phone] ALP [Catalytic activity/Vol] 86 U/L 38 - 126 U/L [facility] Work Phone: [phone] ALT [Catalytic activity/Vol] 81 U/L High 13 - 69 U/L [facility] Work Phone: [phone] Anion gap [Moles/Vol] 4 mmol/L [facility] Work Phone: [phone] AST [Catalytic activity/Vol] 87 U/L High 15 - 46 U/L [facility] Work Phone: [phone] Bilirubin [Mass/Vol] 0.6 mg/dL 0.2 - 1 .3 mg/dL [facility] Work Phone: [phone] Calcium [Mass/Vol] 8.8 mg/dL 8.4 - 10. 4 mg/dL [facility] Work Phone: [phone] Chloride [Moles/Vol] 110 mmol/L High 98 - 10 7 mmol/L [facility] Work Phone: [phone] CO2 [Moles/Vol] 27 mmol/L 22 - 30 mmol/L [facility] Work Phone: [phone] Creatinine [Mass/Vol] 0.78 mg/dL 0.52 - 1.25 mg/dL [facility] Work Phone: [phone] EGFR IF NonAfrican Macanese >60.0 >60 mL/min [facility] Work Phone: Comment on above: Source- MDRD equatio n with creatinine calibration to IDMS(NKDEP) eGFR not recommended for drug dose adjustment GFR/1.73 sq M.predicted among blacks MDRD (S/P/Bld) [Vol rate/Area] mL/min/{1.73_m2} >60 mL/min [facility] Work Phone: Glucose [Mass/Vol] 84 mg/dL 70 - 100 mg/dL [facility] Work Phone: Interpretation and review of laboratory results Abnormal [facility] Work Phone: Potassium [Moles/Vol] 3.6 mmol/L 3.5 - 5.1 mmol/L [facility] Work Phone: Protein [Mass/Vol] 5.5 g/dL Low 6.3 - 8.2 g/dL [facility] Work Phone: Sodium [Moles/Vol] 142 mmol/L 135 - 145 mmol/L [facility] Work Phone: Urea nitrogen [Mass/Vol] 11 mg/dL 7 - 20 mg/dL [facility] Work Phone: Test Performed by [address] [address] [facility] Work Phone: Hemogram w/ Autodiffon 02-12 Abs Baso Cnt 0.1 10*3/uL Normal 0.0-0.2 [facility] Comment on above: Performed By: #### H EMDF, BMP3, LFT3, LIPA4, TROPN #### [address] [address] Abs Neutrophile Cnt 4.0 10*3/uL Normal 1.8-7.0 [facility] Comment on above: Performed By: #### H EMDF, BMP3, LFT3, LIPA4, TROPN #### [facility] [employer] [address] [address] Basophils/100 WBC (Bld) 0.9 % Normal 0.0-2.0 [facility] Comment on above: Performed By: #### H EMDF, BMP3, LFT3, LIPA4, TROPN #### [address] [address] [place], [place] Eosinophils (Bld) [#/Vol] 0.2 10*3/uL Normal 0.0-0.5 [facility] Comment on above: Performed By: #### H EMDF, BMP3, LFT3, LIPA4, TROPN #### [address] [address] [place], [place] Eosinophils/100 WBC (Bld) 3.4 % Normal 1.0-6.0 [facility] Comment on above: Performed By: #### H EMDF, BMP3, LFT3, LIPA4, TROPN #### [address] Erythrocyte distribution width (RBC) [Ratio] 12.4 % Normal 11.5-14.5 [facility] Comment on above: Performed By: #### H EMDF, BMP3, LFT3, LIPA4, TROPN #### [address] Granulocytes/100 WBC (Bld) 71.5 % Normal 40.0-80.0 [facility] Comment on above: Performed By: #### H EMDF, BMP3, LFT3, LIPA4, TROPN #### [address] Hematocrit (Bld) [Volume fraction] 32.5 % Low 35.0-47.0 [facility] Comment on above: Performed By: #### H EMDF, BMP3, LFT3, LIPA4, TROPN #### [address] [address] [place], [place] Hemoglobin (Bld) [Mass/Vol] 11.1 g/dL Low 11.7-16.0 [facility] Comment on above: Performed By: #### H EMDF, BMP3, LFT3, LIPA4, TROPN #### [address] [address] [place], [place] Lymphocytes (Bld) [#/Vol] 1.0 10*3/uL Normal 1.0-4.3 [facility] Comment on above: Performed By: #### H EMDF, BMP3, LFT3, LIPA4, TROPN #### [address] Lymphocytes/100 WBC (Bld) 17.7 % Low 20.0-40.0 [facility] Comment on above: Performed By: #### H EMDF, BMP3, LFT3, LIPA4, TROPN #### [address] MCH (RBC) [Entitic mass] 33.0 pg Normal 26.0-34.0 [facility] Comment on above: Performed By: #### H EMDF, BMP3, LFT3, LIPA4, TROPN #### [address] MCHC (RBC) [Mass/Vol] 34.2 % Normal 32.0-36.[address] [facility] Comment on above: Performed By: #### H EMDF, BMP3, LFT3, LIPA4, TROPN #### [address] MCV (RBC) [Entitic vol] 96.5 fL Normal 79.0-98.0 [facility] Comment on above: Performed By: #### H EMDF, BMP3, LFT3, LIPA4, TROPN #### [address] Monocytes (Bld) [#/Vol] 0.4 10*3/uL Normal 0.0-0.8 [facility] Comment on above: Performed By: #### H EMDF, BMP3, LFT3, LIPA4, TROPN #### [address] Monocytes/100 WBC (Bld) 6.5 % Normal 2.0-10.0 [facility] Comment on above: Performed By: #### H EMDF, BMP3, LFT3, LIPA4, TROPN #### [address] Platelet mean volume (Bld) [Entitic vol] 10.3 fL Normal 7.4-10.4 [facility] Comment on above: Performed By: #### H EMDF, BMP3, LFT3, LIPA4, TROPN #### [facility] [address], [place] Platelets (Bld) [#/Vol] 163 10*3/uL Normal 140-440 [facility] Comment on above: Performed By: #### H EMDF, BMP3, LFT3, LIPA4, TROPN #### [address] [address] [place], [place] RBC (Bld) [#/Vol] 3.37 10*6/uL Low 3.80-5.20 [facility] Comment on above: Performed By: #### H EMDF, BMP3, LFT3, LIPA4, TROPN #### [address] [address] [place], [place] WBC (Bld) [#/Vol] 5.5 10*3/uL Normal 3.6-10.7 [facility] Comment on above: Performed By: #### H EMDF, BMP3, LFT3, LIPA4, TROPN #### [address] [address] [place], [place] Lipaseon 02-12-2019 Lipase [Catalytic activity/Vol] 173 U/L Normal 23-300 [facility] Comment on above: Performed By: #### H EMDF, BMP3, LFT3, LIPA4, TROPN #### [address] LipaseOrdered By: Sonny montenegro on 02-12-2019 Lipase [Catalytic activity/Vol] 173 U/L 23 - 300 U/L [facility] Work Phone: No Panel InformationOrdered By: Sonny Peres on 02-12-2019 Test Performed by [facility], [facility] [place] [facility] Work Phone: Prothrombin Timeon 0 INR Coag (PPP) [Relative time] 1.1 Normal 0.9-1.1 [facility] Comment on above: Result Comment: Kervin mmended [...] BMP3, LFT3, LIPA4, TROPN #### [facility] [address] [place] [phone] PT Coag (PPP) [Time] 11.1 s Normal 9.0-12.0 [facility] [employer] Comment on above: Result Comment: . Performed By: #### H EMDF, BMP3, LFT3, LIPA4, TROPN #### [facility] [address] [place] [phone] Protime-INROrdered By: Nanette Peres on 02-12-2019 INR Coag (PPP) [Relative time] 1.1 {INR} [employer] Work Phone: Comment on above: Recommended Anticoag [...] [Time] 11.1 s 9 - 12 s [facility] [employer] Work Phone: Comment on above: . Test Performed by [facility] [place] [employer], [address] [place] [address] [facility] Work Phone: Add On Lab TestOrdered By: Juana Lowery on 02-11-2019 Add On Rejected [facility] Work Phone: Comment on above: No specimen availabl e for addon. Test Performed by [facility] [place] [employer] [facility], [address] [place] [address] [facility] Work Phone: Add On Lab TestOrdered By: Dasha Montague on 02-11-2019 Add On Accepted [facility] Work Phone: Comment on above: Specimen available & acceptable for analysis. Test Performed by [facility] [place] [employer], [address] [place] [address] [facility] Work Phone: Add on test from HISon 02-11 Add on test from HIS Accepted Normal [facility] Comment on above: Result Comment: Spec imen available & acceptable for analysis. Performed By: #### A DDON #### [facility] [address], [place] Add on test from HIS Rejected Normal [facility] Comment on above: Result Comment: No s pecimen available for addon. Performed By: #### A DDON #### [facility] [employer] [facility] [address], [place] Basic Metabolic Panelon 0 Anion gap [Moles/Vol] [address] [facility] Comment on above: Performed By: #### H EMDF, BMP3, LFT3, LIPA4, TROPN #### [facility] [address], [place] Calcium [Mass/Vol] 8.9 mg/dL Normal 8.4-10.4 [facility] Comment on above: Performed By: #### H EMDF, BMP3, LFT3, LIPA4, TROPN #### [facility] [employer] [facility] [address], [place] CO2 [Moles/Vol] 27 mmol/L Normal 22-30 [facility] Comment on above: Performed By: #### H EMDF, BMP3, LFT3, LIPA4, TROPN #### [facility] [employer] [facility] [address], [place] Creatinine [Mass/Vol] 0.72 mg/dL Normal 0.52-1.[address] [facility] Comment on above: Performed By: #### H EMDF, BMP3, LFT3, LIPA4, TROPN #### [facility] [address] [place] [address] GFR/1.73 sq M predicted among blacks MDRD (S/P/Bld) [Vol rate/Area] mL/min/{1.73_m2} Normal >60 [facility] Comment on above: Performed By: #### H EMDF, BMP3, LFT3, LIPA4, TROPN #### [facility] [address] [place] [address] GFR/1.73 sq M predicted among non-blacks MDRD (S/P/Bld) [Vol rate/Area] mL/min/{1.73_m2} Normal >60 [facility] Comment on above: Result Comment: Sour ce- MDRD equation with creatinine calibration to IDMS(NKDEP) eGFR not recommended for drug dose adjustment Performed By: #### H EMDF, BMP3, LFT3, LIPA4, TROPN #### [address] [address] [place] [address] Glucose [Mass/Vol] 120 mg/dL High 70-100 [facility] Comment on above: Performed By: #### H EMDF, BMP3, LFT3, LIPA4, TROPN #### [address] [address] [place] [address] Urea nitrogen [Mass/Vol] 15 mg/dL Normal 7-20 [facility] Comment on above: Performed By: #### H EMDF, BMP3, LFT3, LIPA4, TROPN #### [address] [address] [place] [address] Potassium [Moles/Vol] 3.7 mmol/L Normal 3.5-5.[address] [facility] Comment on above: Performed By: #### H EMDF, BMP3, LFT3, LIPA4, TROPN #### [facility] [address] [place] [address] Sodium [Moles/Vol] 142 mmol/L Normal 135-145 [facility] Comment on above: Performed By: #### H EMDF, BMP3, LFT3, LIPA4, TROPN #### [facility] [address] [place] [address] Chloride [Moles/Vol] 111 mmol/L High 98-107 [facility] Comment on above: Performed By: #### H EMDF, BMP3, LFT3, LIPA4, TROPN #### [facility] [address] [place] [address] Basic Metabolic PanelOrdered By: Osmar Ribeiro on 02-11-2019 Anion gap [Moles/Vol] 5 mmol/L [facility] Work Phone: [phone] Calcium [Mass/Vol] 8.9 mg/dL 8.4 - 10. 4 mg/dL [facility] Work Phone: [phone] Chloride [Moles/Vol] 111 mmol/L High 98 - 10 7 mmol/L [facility] Work Phone: [phone] CO2 [Moles/Vol] 27 mmol/L 22 - 30 mmol/L [facility] Work Phone: [phone] Creatinine [Mass/Vol] 0.72 mg/dL 0.52 - 1.25 mg/dL [facility] Work Phone: [phone] EGFR IF NonAfrican Macanese >60.0 >60 mL/min [facility] Work Phone: [phone] Comment on above: Source- MDRD equatio n with creatinine calibration to IDMS(NKDEP) eGFR not recommended for drug dose adjustment GFR/1.73 sq M.predicted among blacks MDRD (S/P/Bld) [Vol rate/Area] mL/min/{1.73_m2} >60 mL/min [facility] Work Phone: [phone] Glucose [Mass/Vol] 120 mg/dL High 70 - 100 mg/dL [facility] Work Phone: [phone] Potassium [Moles/Vol] 3.7 mmol/L 3.5 - 5.1 mmol/L [facility] Work Phone: [phone] Sodium [Moles/Vol] 142 mmol/L 135 - 145 mmol/L [facility] Work Phone: [phone] Urea nitrogen [Mass/Vol] 15 mg/dL 7 - 20 mg/dL [facility] Work Phone: [phone] CBC Auto DifferentialOrdered By: Osmar Ribeiro on 02-11-2019 Absolute Baso # 0.0 10*3/uL 0 - 0.2 10*3/uL [facility] Work Phone: [phone] Absolute Neut # 7.8 10*3/uL High 1.8 - 7 10*3/uL [facility] Work Phone: [phone] Basophils/100 WBC (Bld) 0.3 % 0 - 2 % [facility] Work Phone: [phone] Eosinophils (Bld) [#/Vol] 0.0 10*3/uL 0 - 0.5 10*3/uL [facility] Work Phone: [phone] Eosinophils/100 WBC (Bld) 0.4 % Low 1 - 6 % [facility] Work Phone: [phone] Erythrocyte distribution width (RBC) [Ratio] 12.4 % 11.5 - 14.5 % [employer] Work Phone: 222 Granulocytes/100 WBC (Bld) 78.7 % 40 - 80 % [facility] Work Phone: [phone] Hematocrit (Bld) [Volume fraction] 34.8 % Low 35 - 47 % [facility] Work Phone: 222 Hemoglobin (Bld) [Mass/Vol] 11.8 g/dL 11.7 - 16 g/dL [employer] Work Phone: [phone] Interpretation and review of laboratory results Abnormal [employer] Work Phone: [phone] Lymphocytes (Bld) [#/Vol] 1.4 10*3/uL 1 - 4.3 10*3/uL [facility] Work Phone: [phone] Lymphocytes/100 WBC (Bld) 14.5 % Low 20 - 40 % [facility] Work Phone: ) 222 MCH (RBC) [Entitic mass] 32.7 pg 26 - 34 pg [facility] Work Phone: [phone] MCHC 33.9 % 32 - 36 % [facility] Work Phone: [phone] MCV (RBC) [Entitic vol] 96.7 fL 79 - 98 fL [facility] Work Phone: [phone] Monocytes (Bld) [#/Vol] 0.6 10*3/uL 0 - 0.8 10*3/uL [facility] Work Phone: [phone] Monocytes/100 WBC (Bld) 6.1 % 2 - 10 % [facility] Work Phone: Platelet mean volume (Bld) [Entitic vol] 10.0 fL 7.4 - 10.4 fL [facility] Work Phone: Platelets (Bld) [#/Vol] 193 10*3/uL 140 - 440 10*3/uL [facility] Work Phone: RBC (Bld) [#/Vol] 3.60 10*6/uL Low 3.8 - 5.2 10*6/uL [employer] Work Phone: [phone] WBC (Bld) [#/Vol] 9.9 10*3/uL 3.6 - 10.7 10*3/uL [employer] Work Phone: Test Performed by [facility], [address] [place] [address] [employer] Work Phone: EKG 12 Lead - Chest PainOrde red By: Osmar Ribeiro on 02-11-2019 [facility] [employer] [facility] Test Date: 2019-02-11 Pat Name: Ricardo Villalpando Department: [facility] Room: [facility] Gender: F 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 : 1940 Requested By: OSMAR RIBEIRO Order Number: [id number] Reading MD: Zack Lopez Measurements Intervals [place] Rate: 69 P: NM: QRS: -12 QRSD: 85 T: -16 QT: 413 QTc: 443 Interpretive Statements Atrial fibrillation Low voltage, extremity and precordial leads Electronically Signed On 02-11-2019 22:54:26 EST by Zack Lopez [employer] Work Phone: [facility], [facility] Incoming Cardiology Results From [facility] - 02/11/2019 10:55 PM EST [facility]: 2019-02-11 Pat Name: Ricardo Villalpando Department: [facility] Room: [facility] Gender: F 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 : 1940 Requested By: OSMAR RIBEIRO Order Number: [id number] Reading MD: Zack Lopez Measurements Intervals [place] Rate: 69 P: NM: QRS: -12 QRSD: 85 T: -16 QT: 413 QTc: 443 Interpretive Statements Atrial fibrillation Low voltage, extremity and precordial leads Electronically Signed On 02-11-2019 22:54:26 EST by aZck Lopez [facility] Work Phone: HEPATIC FUNCTION PANELOrdere d By: Osmar Ribeiro on 02-11-2019 Albumin [Mass/Vol] 3.3 g/dL Low 3.5 - 5 g/dL [facility] Work Phone: ALP [Catalytic activity/Vol] 83 U/L 38 - 126 U/L [facility] Work Phone: ALT [Catalytic activity/Vol] 64 U/L 13 - 69 U/L [facility] Work Phone: AST [Catalytic activity/Vol] 76 U/L High 15 - 46 U/L [facility] Work Phone: Bilirubin [Mass/Vol] 0.5 mg/dL 0.2 - 1 .3 mg/dL [facility] Work Phone: Bilirubin.indirect [Mass/Vol] 0.0 mg/dL 0 - 0.3 mg/dL [facility] Work Phone: Protein [Mass/Vol] 6.2 g/dL Low 6.3 - 8.2 g/dL [facility] Work Phone: Hemogram w/ Autodiffon 02-11 Abs Baso Cnt 0.0 10*3/uL Normal 0.0-0.2 [facility] Comment on above: Performed By: #### H EMDF, BMP3, LFT3, LIPA4, TROPN #### [facility] [address] [place] [address] Abs Neutrophile Cnt 7.8 10*3/uL High 1.8-7.0 [facility] Comment on above: Performed By: #### H EMDF, BMP3, LFT3, LIPA4, TROPN #### [facility] [employer] [facility] [address] [place], [place] Basophils/100 WBC (Bld) 0.3 % Normal 0.0-2.0 [facility] Comment on above: Performed By: #### H EMDF, BMP3, LFT3, LIPA4, TROPN #### [address] Eosinophils (Bld) [#/Vol] 0.0 10*3/uL Normal 0.0-0.5 [facility] Comment on above: Performed By: #### H EMDF, BMP3, LFT3, LIPA4, TROPN #### [address] Eosinophils/100 WBC (Bld) 0.4 % Low 1.0-6.0 [facility] Comment on above: Performed By: #### H EMDF, BMP3, LFT3, LIPA4, TROPN #### [address] Erythrocyte distribution width (RBC) [Ratio] 12.4 % Normal 11.5-14.5 [facility] Comment on above: Performed By: #### H EMDF, BMP3, LFT3, LIPA4, TROPN #### [address] Granulocytes/100 WBC (Bld) 78.7 % Normal 40.0-80.0 [facility] Comment on above: Performed By: #### H EMDF, BMP3, LFT3, LIPA4, TROPN #### [address] Hematocrit (Bld) [Volume fraction] 34.8 % Low 35.0-47.0 [facility] Comment on above: Performed By: #### H EMDF, BMP3, LFT3, LIPA4, TROPN #### [address] Hemoglobin (Bld) [Mass/Vol] 11.8 g/dL Normal 11.7-16.0 [facility] Comment on above: Performed By: #### H EMDF, BMP3, LFT3, LIPA4, TROPN #### [address] [address] [place], [place] Lymphocytes (Bld) [#/Vol] 1.4 10*3/uL Normal 1.0-4.3 [facility] Comment on above: Performed By: #### H EMDF, BMP3, LFT3, LIPA4, TROPN #### [address] Lymphocytes/100 WBC (Bld) 14.5 % Low 20.0-40.0 [facility] Comment on above: Performed By: #### H EMDF, BMP3, LFT3, LIPA4, TROPN #### [address] MCH (RBC) [Entitic mass] 32.7 pg Normal 26.0-34.0 [facility] Comment on above: Performed By: #### H EMDF, BMP3, LFT3, LIPA4, TROPN #### [address] MCHC (RBC) [Mass/Vol] 33.9 % Normal 32.0-36.[address] [facility] Comment on above: Performed By: #### H EMDF, BMP3, LFT3, LIPA4, TROPN #### [address] MCV (RBC) [Entitic vol] 96.7 fL Normal 79.0-98.0 [facility] Comment on above: Performed By: #### H EMDF, BMP3, LFT3, LIPA4, TROPN #### [address] Monocytes (Bld) [#/Vol] 0.6 10*3/uL Normal 0.0-0.8 [facility] Comment on above: Performed By: #### H EMDF, BMP3, LFT3, LIPA4, TROPN #### [address] Monocytes/100 WBC (Bld) 6.1 % Normal 2.0-10.0 [facility] Comment on above: Performed By: #### H EMDF, BMP3, LFT3, LIPA4, TROPN #### [facility] [address], [place] Platelet mean volume (Bld) [Entitic vol] 10.0 fL Normal 7.4-10.4 [facility] Comment on above: Performed By: #### H EMDF, BMP3, LFT3, LIPA4, TROPN #### [facility] [address], [place] Platelets (Bld) [#/Vol] 193 10*3/uL Normal 140-440 [facility] Comment on above: Performed By: #### H EMDF, BMP3, LFT3, LIPA4, TROPN #### [facility] [address], [place] RBC (Bld) [#/Vol] 3.60 10*6/uL Low 3.80-5.20 [facility] Comment on above: Performed By: #### H EMDF, BMP3, LFT3, LIPA4, TROPN #### [address] [address] [address] [place], [place] WBC (Bld) [#/Vol] 9.9 10*3/uL Normal 3.6-10.7 [facility] Comment on above: Performed By: #### H EMDF, BMP3, LFT3, LIPA4, TROPN #### [facility] [address], [place] Hepatic Functionon 0 ALP [Catalytic activity/Vol] 83 U/L Normal 38-126 [facility] Comment on above: Performed By: #### H EMDF, BMP3, LFT3, LIPA4, TROPN #### [facility] [address], [place] ALT [Catalytic activity/Vol] 64 U/L Normal 13-69 [facility] Comment on above: Performed By: #### H EMDF, BMP3, LFT3, LIPA4, TROPN #### [address] [address] [address] [place], [place] AST [Catalytic activity/Vol] 76 U/L High 15-46 [facility] Comment on above: Performed By: #### H EMDF, BMP3, LFT3, LIPA4, TROPN #### [facility] [address], [place] Bilirubin [Mass/Vol] 0.5 mg/dL Normal 0.2-1.3 [facility] Comment on above: Performed By: #### H EMDF, BMP3, LFT3, LIPA4, TROPN #### [facility] [address], [place] Bilirubin.direct [Mass/Vol] 0.0 mg/dL Normal 0.0-0.3 [facility] Comment on above: Performed By: #### H EMDF, BMP3, LFT3, LIPA4, TROPN #### [address] [address] [place] [place], [place] Protein [Mass/Vol] 6.2 g/dL Low 6.3-8.2 [facility] Comment on above: Performed By: #### H EMDF, BMP3, LFT3, LIPA4, TROPN #### [address] [address] [place], [place] Albumin [Mass/Vol] 3.3 g/dL Low 3.5-5.0 [facility] Comment on above: Performed By: #### H EMDF, BMP3, LFT3, LIPA4, TROPN #### [address] [address] [place], [place] Lipaseon 02-11-2019 Lipase [Catalytic activity/Vol] 164 U/L Normal 23-300 [facility] Comment on above: Performed By: #### H EMDF, BMP3, LFT3, LIPA4, TROPN #### [address] [address] [place] [place], [place] LipaseOrdered By: Osmar wright on 02-11-2019 Lipase [Catalytic activity/Vol] 164 U/L 23 - 300 U/L [facility] Work Phone: MRI ABDOMEN WO CONTRASTOrder ed By: Gem Lowery on 02-11-2019 Patient Name: RICARDO VILLALPANDO ---MRI--- Exam Date/Time 02/11/2019 13:41:50 EST Exam MRI Abdomen w/o Contrast Ordering Physician DO LOWERY ELISABETH Accession Number [id number] CPT4 Codes 92858 () Reason For Exam evaluate for choledocholithiasis [...] Time: 02/11/2019 2:42 [facility] Work Phone: Kash, [place] Incoming Radiology Results From [facility] - 02/11/2019 2:56 PM EST Patient Name: RICARDO VILLALPANDO ---MRI--- Exam Date/Time 02/11/2019 13:41:50 EST Exam MRI Abdomen w/o Contrast Ordering Physician DO LOWERY ELISABETH Accession Number [id number] CPT4 Codes 14626 () Reason For Exam evaluate for choledocholithiasis [...] 02-11-2019 MRI Abdomen w/o Contrast Patient Name: RICARDO VILLALPANDO MRI Exam Date/Time 02/11/2019 13:41:50 EST Exam MRI Abdomen w/o Contrast Ordering Physician DO LOWERY ELISABETH Accession Number [id number] CPT4 Codes 26032 () Reason For Exam evaluate for choledocholithiasis [...] Date and Time: 02/11/2019 2:42 Normal [facility] No Panel InformationOrdered By: Osmar Ribeiro on 02-11-2019 Interpretation and review of laboratory results Abnormal [facility] Work Phone: Test Performed by [facility], [address] [place] [id number] [place] [address] Work Phone: PROTIME/INR & PTTOrdered By: Gem Lowery on 02-11-2019 aPTT Coag (Bld) [Time] 27 s 20 - 30.5 s [facility] Work Phone: Comment on above: NOTE: The therapeuti c time for Heparin anticoagulation, based on Xa activity inhibition, is an APTT of 46-80 seconds. INR Coag (PPP) [Relative time] 1.0 {INR} [facility] Work Phone: Comment on above: Recommended [...] [Time] 11 s 9 - 12 s [facility] Work Phone: Comment on above: . Test Performed by [employer], [address] [place] [address] [employer] Work Phone: Protime AND APTTon 0 INR Coag (PPP) [Relative time] 1.0 Normal 0.9-1.1 [facility] Comment on above: Result Comment: Kervin mmended [...] Infarction Performed By: #### P T/AP #### [facility] [address] [place] [address] PT Coag (PPP) [Time] 11.0 s Normal 9.0-12.0 [facility] [employer] Comment on above: Result Comment: . Performed By: #### P T/AP #### [facility] [address] [place] [address] aPTT Coag (Bld) [Time] 27.0 s Normal 20.0-30.5 [facility] Comment on above: Result Comment: NOTE : The therapeutic time for Heparin anticoagulation, based on Xa activity inhibition, is an APTT of 46-80 seconds. Performed By: #### P T/AP #### [facility] [address] [place] [address] TroponinOrdered By: Jf on 02-11-2019 Troponin I.cardiac [Mass/Vol] ng/mL 0 - 0.034 ng/mL [facility] Work Phone: Comment on above: . Test Performed by [employer], [address] [place] [address] [facility] Work Phone: Troponin Ion 02-11-2019 Troponin I.cardiac [Mass/Vol] ng/mL Normal 0.000-0.034 [facility] Comment on above: Result Comment: . Performed By: #### H EMDF, BMP3, LFT3, LIPA4, TROPN #### [employer] [address] [place] [address] US ABDOMEN LIMITED Specify o rgan? GALLBLADDER, PANCREAS, LIVEROrdered By: Yusuf Andino on 02-11-2019 Patient Name: RICARDO VILLALPANDO ---Ultrasound--- Exam Date/Time 02/11/2019 08:31:45 EST Exam US Abdomen Limited Ordering Physician Rita ANDINO, YUSUF Lou Accession Number [id number] CPT4 Codes 98680 () Reason For Exam RUQ pain Report [...] B Transcribed Date and Time: 02/11/2019 9:06 [facility] Work Phone: [facility] Results From [facility] - 02/11/2019 9:11 AM EST Patient Name: RICARDO VILLALPANDO ---Ultrasound--- Exam Date/Time 02/11/2019 08:31:45 EST Exam US Abdomen Limited Ordering Physician Rita ANDINO SHELLY D Accession Number [id number] CPT4 Codes 30131 () Reason For Exam RUQ pain Report [...] B Transcribed Date and Time: 02/11/2019 9:06 [facility] Work Phone: US Abdomen Limitedon 020 US Abdomen Limited Patient Name: RICARDO VILLALPANDO Ultrasound Exam Date/Time 02/11/2019 08:31:45 EST Exam US Abdomen Limited Ordering Physician Rita ANDINO SHELLY D Accession Number [id number] CPT4 Codes 07054 () Reason For Exam RUQ pain Report [...] Date and Time: 02/11/2019 9:06 Normal [facility] Comprehensive Metabolic Pane [place] 09-21-2018 Albumin [Mass/Vol] 3.5 g/dL 3.5 - 5 g/dL [place], [place] ALP [Catalytic activity/Vol] 117 U/L 38 - 126 U/L [place], [place] ALT [Catalytic activity/Vol] 47 U/L 13 - 69 U/L [place] Anion gap [Moles/Vol] 5 mmol/L [place], [place] AST [Catalytic activity/Vol] 137 U/L High 15 - 46 U/L [place] Bilirubin Ql (U) 0.7 mg/dL 0.2 - 1.3 mg/dL [place] Calcium [Mass/Vol] 9.4 mg/dL 8.4 - 10. 4 mg/dL [place] Chloride [Moles/Vol] 102 mmol/L 98 - 10 7 mmol/L [place] CO2 [Moles/Vol] 28 mmol/L 22 - 30 mmol/L [place] Creatinine [Mass/Vol] 0.61 mg/dL 0.52 - 1.25 mg/dL [place] EGFR IF NonAfrican Macanese >60.0 >60 mL/min [place], [place] Comment on above: Source- MDRD equatio n with creatinine calibration to IDMS(NKDEP) eGFR not recommended for drug dose adjustment GFR/1.73 sq M predicted among blacks MDRD (S/P/Bld) [Vol rate/Area] mL/min/{1.73_m2} >60 mL/min [place], [place] Glucose [Mass/Vol] 135 mg/dL High 70 - 100 mg/dL [place] Interpretation and review of laboratory results Abnormal [place] Potassium [Moles/Vol] 3.4 mmol/L Low 3.5 - 5.1 mmol/L [place] Protein [Mass/Vol] 6.6 g/dL 6.3 - 8.2 g/dL [place] Sodium [Moles/Vol] 134 mmol/L Low 135 - 145 mmol/L [place] Urea nitrogen [Mass/Vol] 5 mg/dL Low 7 - 20 mg/dL [place] Test Performed by [facility], [address] [place], [place] [id number] [place] [address] CBC Auto Differentialon 09-08 Absolute Baso # 0.1 10*3/uL 0 - 0.2 10*3/uL [place] Absolute Neut # 5.1 10*3/uL 1.8 - 7 10*3/uL [place] Basophils/100 WBC (Bld) 0.8 % 0 - 2 % [place] Eosinophils (Bld) [#/Vol] 0.2 10*3/uL 0 - 0.5 10*3/uL [place] Eosinophils/100 WBC (Bld) 3.4 % 1 - 6 % [place] Erythrocyte distribution width (RBC) [Ratio] 17.3 % High 11.5 - 14.5 % [place] Granulocytes/100 WBC (Bld) 68.2 % 40 - 80 % [place] Hematocrit (Bld) [Volume fraction] 35.1 % 35 - 47 % [place] Hemoglobin (Bld) [Mass/Vol] 11.4 g/dL Low 11.7 - 16 g/dL [place] Interpretation and review of laboratory results Abnormal [place] Lymphocytes (Bld) [#/Vol] 1.5 10*3/uL 1 - 4.3 10*3/uL [place] Lymphocytes/100 WBC (Bld) 20.2 % 20 - 40 % [place] MCH (RBC) [Entitic mass] 29.0 pg 26 - 34 pg [place] MCHC (RBC) [Mass/Vol] 32.6 % 32 - 36 % [place] MCV (RBC) [Entitic vol] 88.9 fL 79 - 98 fL [place] Monocytes (Bld) [#/Vol] 0.5 10*3/uL 0 - 0.8 10*3/uL [place] Monocytes/100 WBC (Bld) 7.4 % 2 - 10 % [place] Platelet mean volume (Bld) [Entitic vol] 9.6 fL 7.4 - 10.4 fL [place] Platelets (Bld) [#/Vol] 232 10*3/uL 140 - 440 10*3/uL [place] RBC (Bld) [#/Vol] 3.95 10*6/uL 3.8 - 5.2 10*6/uL [place] WBC (Bld) [#/Vol] 7.4 10*3/uL 3.6 - 10.7 10*3/uL [place] Test Performed by [facility], [address], [place], [place] [address] [place], [place] Comprehensive Metabolic Pane keely 09-20-2018 Albumin [Mass/Vol] 3.6 g/dL 3.5 - 5 g/dL [place], [place] ALP [Catalytic activity/Vol] 141 U/L High 38 - 126 U/L [place] ALT [Catalytic activity/Vol] 56 U/L 13 - 69 U/L [place] Anion gap [Moles/Vol] 10 mmol/L [place], [place] AST [Catalytic activity/Vol] 68 U/L High 15 - 46 U/L [place] Bilirubin Ql (U) 0.6 mg/dL 0.2 - 1.3 mg/dL [place] Calcium [Mass/Vol] 9.3 mg/dL 8.4 - 10. 4 mg/dL [place] Chloride [Moles/Vol] 104 mmol/L 98 - 10 7 mmol/L [place] CO2 [Moles/Vol] 25 mmol/L 22 - 30 mmol/L [place] Creatinine [Mass/Vol] 0.63 mg/dL 0.52 - 1.25 mg/dL [place] EGFR IF NonAfrican Macanese >60.0 >60 mL/min [place] Comment on above: Source- MDRD equatio n with creatinine calibration to IDMS(NKDEP) eGFR not recommended for drug dose adjustment GFR/1.73 sq M predicted among blacks MDRD (S/P/Bld) [Vol rate/Area] mL/min/{1.73_m2} >60 mL/min [place] Glucose [Mass/Vol] 136 mg/dL High 70 - 100 mg/dL [place] Potassium [Moles/Vol] 3.7 mmol/L 3.5 - 5.1 mmol/L [place] Protein [Mass/Vol] 6.6 g/dL 6.3 - 8.2 g/dL [place] Sodium [Moles/Vol] 140 mmol/L 135 - 145 mmol/L [place] Urea nitrogen [Mass/Vol] 8 mg/dL 7 - 20 mg/dL [place] Lactate Dehydrogenaseon 09-08 LD 182 U/L High 50 - 170 U/L [place] Otheron 09-20-2018 Blood Culture, Routine No growth at 5 days. [place] Test Performed by [facility], [address] [place] [address] Specimen Source Comment:Blood [place] Interpretation and review of laboratory results Abnormal [place] Test Performed by [facility], [address], [place], [place] [address] [place], [place] CBC Auto Differentialon 09-08 Absolute Baso # 0.1 10*3/uL 0 - 0.2 10*3/uL [place] Absolute Neut # 4.2 10*3/uL 1.8 - 7 10*3/uL [place] Basophils/100 WBC (Bld) 1.0 % 0 - 2 % [place] Eosinophils (Bld) [#/Vol] 0.2 10*3/uL 0 - 0.5 10*3/uL [place] Eosinophils/100 WBC (Bld) 4.0 % 1 - 6 % [place] Erythrocyte distribution width (RBC) [Ratio] 17.7 % High 11.5 - 14.5 % [place] Granulocytes/100 WBC (Bld) 68.4 % 40 - 80 % [place] Hematocrit (Bld) [Volume fraction] 32.0 % Low 35 - 47 % [place] Hemoglobin (Bld) [Mass/Vol] 10.6 g/dL Low 11.7 - 16 g/dL [place] Interpretation and review of laboratory results Abnormal [place] Lymphocytes (Bld) [#/Vol] 1.2 10*3/uL 1 - 4.3 10*3/uL [place] Lymphocytes/100 WBC (Bld) 19.7 % Low 20 - 40 % [place] MCH (RBC) [Entitic mass] 29.0 pg 26 - 34 pg [place] MCHC (RBC) [Mass/Vol] 33.2 % 32 - 36 % [place] MCV (RBC) [Entitic vol] 87.4 fL 79 - 98 fL [place] Monocytes (Bld) [#/Vol] 0.4 10*3/uL 0 - 0.8 10*3/uL [place] Monocytes/100 WBC (Bld) 6.9 % 2 - 10 % [place] Platelet mean volume (Bld) [Entitic vol] 9.4 fL 7.4 - 10.4 fL [place], [place] Platelets (Bld) [#/Vol] 225 10*3/uL 140 - 440 10*3/uL [place] RBC (Bld) [#/Vol] 3.66 10*6/uL Low 3.8 - 5.2 10*6/uL [place] WBC (Bld) [#/Vol] 6.2 10*3/uL 3.6 - 10.7 10*3/uL [place] Test Performed by [facility], [address] [place], [place] [id number] [place] [address] Comprehensive Metabolic Pane keely 09-19-2018 Albumin [Mass/Vol] 3.3 g/dL Low 3.5 - 5 g/dL [place], [place] ALP [Catalytic activity/Vol] 117 U/L 38 - 126 U/L [place] ALT [Catalytic activity/Vol] 78 U/L High 13 - 69 U/L [place] Anion gap [Moles/Vol] 5 mmol/L [place], [place] AST [Catalytic activity/Vol] 52 U/L High 15 - 46 U/L [place] Bilirubin Ql (U) 0.8 mg/dL 0.2 - 1.3 mg/dL [place] Calcium [Mass/Vol] 9.0 mg/dL 8.4 - 10. 4 mg/dL [place] Chloride [Moles/Vol] 102 mmol/L 98 - 10 7 mmol/L [place] CO2 [Moles/Vol] 27 mmol/L 22 - 30 mmol/L [place] Creatinine [Mass/Vol] 0.66 mg/dL 0.52 - 1.25 mg/dL [place] EGFR IF NonAfrican Macanese >60.0 >60 mL/min [place] Comment on above: Source- MDRD equatio n with creatinine calibration to IDMS(NKDEP) eGFR not recommended for drug dose adjustment GFR/1.73 sq M predicted among blacks MDRD (S/P/Bld) [Vol rate/Area] mL/min/{1.73_m2} >60 mL/min [place] Glucose [Mass/Vol] 125 mg/dL High 70 - 100 mg/dL [place] Interpretation and review of laboratory results Abnormal [place] Potassium [Moles/Vol] 3.8 mmol/L 3.5 - 5.1 mmol/L [place] Protein [Mass/Vol] 6.3 g/dL 6.3 - 8.2 g/dL [place] Sodium [Moles/Vol] 133 mmol/L Low 135 - 145 mmol/L [place], [place] Urea nitrogen [Mass/Vol] 10 mg/dL 7 - 20 mg/dL [place], [place] Lipaseon 09-19-2018 Lipase [Catalytic activity/Vol] 247 U/L 23 - 300 U/L [place], [place] Otheron 09-19-2018 Test Performed by [facility], [address] [place] [address] [place] US ABDOMEN LIMITEDon 019 Patient Name: RICARDO VILLALPANDO ---Ultrasound--- Exam Date/Time 09/19/2018 14:28:18 EDT Exam US Abdomen Limited Ordering Physician MD CHONG, SEEMA Wheeler Accession Number [id number] CPT4 Codes 60458 () Reason For Exam re-eval pancreas, rising [...] RUSSELL Transcribed Date and Time: 09/19/2018 3:29 [place] Incoming Radiology Results From [facility] - 09/19/2018 3:29 PM EDT Patient Name: RICARDO VILLALPANDO ---Ultrasound--- Exam Date/Time 09/19/2018 14:28:18 EDT Exam US Abdomen Limited Ordering Physician MD SCHWARZ RICHARD H Accession Number [id number] CPT4 Codes 41665 () Reason For Exam re-eval pancreas, rising [...] RUSSELL Transcribed Date and Time: 09/19/2018 3:29 [place] CBC Auto Differentialon 09-08 Absolute Baso # 0.1 10*3/uL 0 - 0.2 10*3/uL [place] Absolute Neut # 6.1 10*3/uL 1.8 - 7 10*3/uL [place] Basophils/100 WBC (Bld) 0.9 % 0 - 2 % [place] Eosinophils (Bld) [#/Vol] 0.4 10*3/uL 0 - 0.5 10*3/uL [place] Eosinophils/100 WBC (Bld) 4.0 % 1 - 6 % [place] Erythrocyte distribution width (RBC) [Ratio] 18.1 % High 11.5 - 14.5 % [place] Granulocytes/100 WBC (Bld) 68.6 % 40 - 80 % [place] Hematocrit (Bld) [Volume fraction] 36.2 % 35 - 47 % [place] Hemoglobin (Bld) [Mass/Vol] 11.8 g/dL 11.7 - 16 g/dL [place] Lymphocytes (Bld) [#/Vol] 1.8 10*3/uL 1 - 4.3 10*3/uL [place] Lymphocytes/100 WBC (Bld) 19.9 % Low 20 - 40 % [place] MCH (RBC) [Entitic mass] 28.8 pg 26 - 34 pg [place] MCHC (RBC) [Mass/Vol] 32.7 % 32 - 36 % [place] MCV (RBC) [Entitic vol] 88.1 fL 79 - 98 fL [place] Monocytes (Bld) [#/Vol] 0.6 10*3/uL 0 - 0.8 10*3/uL [place] Monocytes/100 WBC (Bld) 6.6 % 2 - 10 % [place] Platelet mean volume (Bld) [Entitic vol] 9.3 fL 7.4 - 10.4 fL [place] Platelets (Bld) [#/Vol] 281 10*3/uL 140 - 440 10*3/uL [place] RBC (Bld) [#/Vol] 4.11 10*6/uL 3.8 - 5.2 10*6/uL [place] WBC (Bld) [#/Vol] 8.9 10*3/uL 3.6 - 10.7 10*3/uL [place] Comprehensive Metabolic Pane keely 09-18-2018 Albumin [Mass/Vol] 3.7 g/dL 3.5 - 5 g/dL [place] ALP [Catalytic activity/Vol] 165 U/L High 38 - 126 U/L [place] ALT [Catalytic activity/Vol] 93 U/L High 13 - 69 U/L [place] Anion gap [Moles/Vol] 5 mmol/L [place], [place] AST [Catalytic activity/Vol] 69 U/L High 15 - 46 U/L [place] Bilirubin Ql (U) 0.8 mg/dL 0.2 - 1.3 mg/dL [place] Calcium [Mass/Vol] 9.4 mg/dL 8.4 - 10. 4 mg/dL [place] Chloride [Moles/Vol] 102 mmol/L 98 - 10 7 mmol/L [place] CO2 [Moles/Vol] 28 mmol/L 22 - 30 mmol/L [place] Creatinine [Mass/Vol] 0.7 mg/dL 0.52 - 1.25 mg/dL [place] EGFR IF NonAfrican Macanese >60.0 >60 mL/min [place] Comment on above: Source- MDRD equatio n with creatinine calibration to IDMS(NKDEP) eGFR not recommended for drug dose adjustment GFR/1.73 sq M predicted among blacks MDRD (S/P/Bld) [Vol rate/Area] mL/min/{1.73_m2} >60 mL/min [place] Glucose [Mass/Vol] 133 mg/dL High 70 - 100 mg/dL [place] Potassium [Moles/Vol] 3.6 mmol/L 3.5 - 5.1 mmol/L [place] Protein [Mass/Vol] 7.0 g/dL 6.3 - 8.2 g/dL [place] Sodium [Moles/Vol] 136 mmol/L 135 - 145 mmol/L [place] Urea nitrogen [Mass/Vol] 10 mg/dL 7 - 20 mg/dL [place] Lipaseon 09-18-2018 Lipase [Catalytic activity/Vol] 513 U/L High 23 - 300 U/L [place], [place] Otheron 09-18-2018 Interpretation and review of laboratory results Abnormal [place] Test Performed by [facility], [address], [place], [place] [id number] [place] [address] Comprehensive Metabolic Pane keely 09-17-2018 Albumin [Mass/Vol] 3.4 g/dL Low 3.5 - 5 g/dL [place] ALP [Catalytic activity/Vol] 146 U/L High 38 - 126 U/L [place] ALT [Catalytic activity/Vol] 109 U/L High 13 - 69 U/L [place] Anion gap [Moles/Vol] 7 mmol/L [place], [place] AST [Catalytic activity/Vol] 76 U/L High 15 - 46 U/L [place] Bilirubin Ql (U) 0.6 mg/dL 0.2 - 1.3 mg/dL [place] Calcium [Mass/Vol] 9.0 mg/dL 8.4 - 10. 4 mg/dL [place] Chloride [Moles/Vol] 104 mmol/L 98 - 10 7 mmol/L [place] CO2 [Moles/Vol] 27 mmol/L 22 - 30 mmol/L [place] Creatinine [Mass/Vol] 0.66 mg/dL 0.52 - 1.25 mg/dL [place] EGFR IF NonAfrican [place] >60.0 >60 mL/min [place] Comment on above: Source- MDRD equatio n with creatinine calibration to IDMS(NKDEP) eGFR not recommended for drug dose adjustment GFR/1.73 sq M predicted among blacks MDRD (S/P/Bld) [Vol rate/Area] mL/min/{1.73_m2} >60 mL/min [place] Glucose [Mass/Vol] 141 mg/dL High 70 - 100 mg/dL [place] Potassium [Moles/Vol] 3.3 mmol/L Low 3.5 - 5.1 mmol/L [place] Protein [Mass/Vol] 6.4 g/dL 6.3 - 8.2 g/dL [place] Sodium [Moles/Vol] 139 mmol/L 135 - 145 mmol/L [place] Urea nitrogen [Mass/Vol] 8 mg/dL 7 - 20 mg/dL [place] Lipaseon 09-17-2018 Lipase [Catalytic activity/Vol] 351 U/L High 23 - 300 U/L [place] NM HEPATOBILIARY W/O CCKon 0 09-17-2018 Patient Name: RICARDO VILLALPANDO ---Nuc Med--- Exam Date/Time 09/17/2018 09:00:00 EDT Exam NM Hepatobiliary System Imaging Ordering Physician KIKO LAU MD Accession Number [id number] CPT4 Codes 05206 () Reason For Exam abd pain Report [...] J Transcribed Date and Time: 09/17/2018 10:54 [facility], [place] [facility], [facility] Incoming Radiology Results From [facility] - 09/17/2018 10:55 AM EDT Patient Name: RICARDO VILLALPANDO ---Nuc Med--- Exam Date/Time 09/17/2018 09:00:00 EDT Exam NM Hepatobiliary System Imaging Ordering Physician KIKO LAU MD Accession Number [id number] CPT4 Codes 65134 () Reason For Exam abd pain Report [...] J Transcribed Date and Time: 09/17/2018 10:54 [facility], [employer] Otheron 09-17-2018 Interpretation and review of laboratory results Abnormal [place] Test Performed by [facility], [address], [place], [place] [address] [place] URINE CULTUREon 09-17-2018 Bacteria identified Cx Nom (U) Group B streptococcus Abnormal [place] Bacteria identified Cx Nom (U) 10,000-50,000 CFU/ml Susceptibility testing not routinely performed. Group B streptococcus is universally susceptible to beta-lactam antibiotics and vancomycin. If patient is beta-lactam allergic, please call [facility] Microbiology lab ([phone]) within 2 days to request susceptibility testing. If isolated from urine, Group B strep may indicate colonization or infection. [place] Bacteria identified Cx Nom (U) Normal urogenital nayeli present. Abnormal [place] Interpretation and review of laboratory results Abnormal [place] Test Performed by [facility], [address] [place] [address] Specimen Source Comment:Urine, clean catch [place] CBCon 09-16-2018 Erythrocyte distribution width (RBC) [Ratio] 17.5 % High 11.5 - 14.5 % [place] Hematocrit (Bld) [Volume fraction] 34.0 % Low 35 - 47 % [place] Hemoglobin (Bld) [Mass/Vol] 11.3 g/dL Low 11.7 - 16 g/dL [place] Interpretation and review of laboratory results Abnormal [place] MCH (RBC) [Entitic mass] 28.9 pg 26 - 34 pg [place] MCHC (RBC) [Mass/Vol] 33.2 % 32 - 36 % [place] MCV (RBC) [Entitic vol] 87.1 fL 79 - 98 fL [place] Platelet mean volume (Bld) [Entitic vol] 9.4 fL 7.4 - 10.4 fL [place] Platelets (Bld) [#/Vol] 247 10*3/uL 140 - 440 10*3/uL [place] RBC (Bld) [#/Vol] 3.91 10*6/uL 3.8 - 5.2 10*6/uL [place] WBC (Bld) [#/Vol] 8.1 10*3/uL 3.6 - 10.7 10*3/uL [place] Test Performed by [facility], [address], [place], [place] [address] [place], [place] Comprehensive Metabolic Pane l w/ Reflex to MGon 09-16-2018 Albumin [Mass/Vol] 3.7 g/dL 3.5 - 5 g/dL [place], [place] ALP [Catalytic activity/Vol] 145 U/L High 38 - 126 U/L [place] ALT [Catalytic activity/Vol] 145 U/L High 13 - 69 U/L [place] Anion gap [Moles/Vol] 7 mmol/L [place], [place] AST [Catalytic activity/Vol] 133 U/L High 15 - 46 U/L [place] Bilirubin Ql (U) 0.9 mg/dL 0.2 - 1.3 mg/dL [place] Calcium [Mass/Vol] 9.1 mg/dL 8.4 - 10. 4 mg/dL [place] Chloride [Moles/Vol] 99 mmol/L 98 - 10 7 mmol/L [place] CO2 [Moles/Vol] 29 mmol/L 22 - 30 mmol/L [place] Creatinine [Mass/Vol] 0.75 mg/dL 0.52 - 1.25 mg/dL [place] EGFR IF NonAfrican [place]anese >60.0 >60 mL/min [place] Comment on above: Source- MDRD equatio n with creatinine calibration to IDMS(NKDEP) eGFR not recommended for drug dose adjustment GFR/1.73 sq M predicted among blacks MDRD (S/P/Bld) [Vol rate/Area] mL/min/{1.73_m2} >60 mL/min [place] Glucose [Mass/Vol] 131 mg/dL High 70 - 100 mg/dL [place] Interpretation and review of laboratory results Abnormal [place] Potassium [Moles/Vol] 3.2 mmol/L Low 3.5 - 5.1 mmol/L [place] Protein [Mass/Vol] 6.8 g/dL 6.3 - 8.2 g/dL [place] Sodium [Moles/Vol] 135 mmol/L 135 - 145 mmol/L [place] Urea nitrogen [Mass/Vol] 11 mg/dL 7 - 20 mg/dL [place] Test Performed by [facility], [address], [place], [place] [address] [place] MRI ABDOMEN WO CONTRASTon Patient Name: RICARDO VILLALPANDO ---MRI--- Exam Date/Time 09/16/2018 16:17:45 EDT Exam MRI Abdomen w/o Contrast Ordering Physician KIKO LAU MD Accession Number [id number] CPT4 Codes 78816 () Reason For Exam gallstones,abd pain Report [...] M Transcribed Date and Time: 09/16/2018 6:06 [facility], [place] [facility], [facility] Incoming Radiology Results From [facility] - 09/16/2018 6:06 PM EDT Patient Name: RICARDO VILLALPANDO ---MRI--- Exam Date/Time 09/16/2018 16:17:45 EDT Exam MRI Abdomen w/o Contrast Ordering Physician KIKO LAU MD Accession Number [id number] CPT4 Codes 67547 () Reason For Exam gallstones,abd pain Report [...] M Transcribed Date and Time: 09/16/2018 6:06 [place] Magnesiumon 09-16-2018 Magnesium [Mass/Vol] 1.7 mg/dL 1.6 - 2 .3 mg/dL [place] Test Performed by [facility], [address] [place], [place] [id number] [place] [address] Troponinon 09-16-2018 Troponin I.cardiac [Mass/Vol] ng/mL 0 - 0.034 ng/mL [place] Comment on above: < 0.034 = negative 0.034 0.120 = indeterminate > 0.120 = positive Test Performed by [facility], [address] [place], [place] [id number] [place] [address] CBC Auto Differentialon Absolute Baso # 0.1 10*3/uL 0 - 0.2 10*3/uL [place] Absolute Neut # 5.9 10*3/uL 1.8 - 7 10*3/uL [place] Basophils/100 WBC (Bld) 1.1 % 0 - 2 % [place] Eosinophils (Bld) [#/Vol] 0.3 10*3/uL 0 - 0.5 10*3/uL [place] Eosinophils/100 WBC (Bld) 3.2 % 1 - 6 % [place] Erythrocyte distribution width (RBC) [Ratio] 17.4 % High 11.5 - 14.5 % [place] Granulocytes/100 WBC (Bld) 67.0 % 40 - 80 % [place] Hematocrit (Bld) [Volume fraction] 36.5 % 35 - 47 % [place] Hemoglobin (Bld) [Mass/Vol] 12.0 g/dL 11.7 - 16 g/dL [place] Interpretation and review of laboratory results Abnormal [place] Lymphocytes (Bld) [#/Vol] 2.0 10*3/uL 1 - 4.3 10*3/uL [place] Lymphocytes/100 WBC (Bld) 22.6 % 20 - 40 % [place] MCH (RBC) [Entitic mass] 28.3 pg 26 - 34 pg [place] MCHC (RBC) [Mass/Vol] 32.9 % 32 - 36 % [place] MCV (RBC) [Entitic vol] 85.8 fL 79 - 98 fL [place] Monocytes (Bld) [#/Vol] 0.5 10*3/uL 0 - 0.8 10*3/uL [place] Monocytes/100 WBC (Bld) 6.1 % 2 - 10 % [place] Platelet mean volume (Bld) [Entitic vol] 9.7 fL 7.4 - 10.4 fL [place] Platelets (Bld) [#/Vol] 275 10*3/uL 140 - 440 10*3/uL [place] RBC (Bld) [#/Vol] 4.25 10*6/uL 3.8 - 5.2 10*6/uL [place] WBC (Bld) [#/Vol] 8.8 10*3/uL 3.6 - 10.7 10*3/uL [place] Test Performed by [facility], [address], [place], [place] [address] [place] Comprehensive Metabolic Pane keely 09-15-2018 Albumin [Mass/Vol] 4.1 g/dL 3.5 - 5 g/dL [place], [place] ALP [Catalytic activity/Vol] 170 U/L High 38 - 126 U/L [place] ALT [Catalytic activity/Vol] 191 U/L High 13 - 69 U/L [place] Anion gap [Moles/Vol] 6 mmol/L [place], [place] AST [Catalytic activity/Vol] 216 U/L High 15 - 46 U/L [place] Bilirubin Ql (U) 0.9 mg/dL 0.2 - 1.3 mg/dL [place] Calcium [Mass/Vol] 9.2 mg/dL 8.4 - 10. 4 mg/dL [place] Chloride [Moles/Vol] 100 mmol/L 98 - 10 7 mmol/L [place] CO2 [Moles/Vol] 33 mmol/L High 22 - 30 mmol/L [place] Creatinine [Mass/Vol] 0.83 mg/dL 0.52 - 1.25 mg/dL [place] EGFR IF NonAfrican Macanese >60.0 >60 mL/min [place] Comment on above: Source- MDRD equatio n with creatinine calibration to IDMS(NKDEP) eGFR not recommended for drug dose adjustment GFR/1.73 sq M predicted among blacks MDRD (S/P/Bld) [Vol rate/Area] mL/min/{1.73_m2} >60 mL/min [place] Glucose [Mass/Vol] 111 mg/dL High 70 - 100 mg/dL [place] Interpretation and review of laboratory results Abnormal [place] Potassium [Moles/Vol] 3.4 mmol/L Low 3.5 - 5.1 mmol/L [place], [place] Protein [Mass/Vol] 7.5 g/dL 6.3 - 8.2 g/dL [place] Sodium [Moles/Vol] 139 mmol/L 135 - 145 mmol/L [place] Urea nitrogen [Mass/Vol] 13 mg/dL 7 - 20 mg/dL [place] Test Performed by [facility], [address], [place], [place] [address] [place] Hepatitis Panel, Acuteon HAV IgM IA Qn (S) NOT DETECTED Not-Detect ed NA [place] Hep B Core Ab, IgM NOT DETECTED Not-Detec jae [place] Hepatitis B Surface Ag NOT DETECTED Not-D etected [place] Hepatitis C Ab NOT DETECTED Not-Detected [place] Comment on above: Patients with DETECT ED Hepatitis C Ab results should have a new specimen submitted for supplemental testing with a Hepatitis C Quantitative RNA assay (viral load), if clinically indicated. Test Performed by [facility], [facility] [place], [place] [address] [place] [address] HAV IgM IA Qn (S) NOT DETECTED Not-Detect ed [place] Hep B Core Ab, IgM NOT DETECTED Not-Detec jae [place] Hepatitis B Surface Ag NOT DETECTED Not-D etected [place] Hepatitis C Ab NOT DETECTED Not-Detected [place] Comment on above: Patients with DETECT ED Hepatitis C Ab results should have a new specimen submitted for supplemental testing with a Hepatitis C Quantitative RNA assay (viral load), if clinically indicated. Test Performed by [facility], [facility] [place], [place] [address] [place] [address] PROCALCITONINon 09-15-2018 Procalcitonin <0.10 <0.10 ng/mL [place] Sodium [Moles/Vol] See Below [place] Comment on above: PCT <0.50 = Low risk of severe sepsis and/or septic shock. PCT >2.00 = High risk of severe sepsis and/or septic shock. Test Performed by [facility], [facility] [place], [place] [id number] [place] [address] Troponinon 09-15-2018 Troponin I.cardiac [Mass/Vol] 0.012 ng/mL 0 - 0.034 ng/mL [place] Comment on above: < 0.034 = negative 0.034 0.120 = indeterminate > 0.120 = positive Test Performed by [facility], [address] [place], [place] [address] [place] Troponin I.cardiac [Mass/Vol] ng/mL 0 - 0.034 ng/mL [place] Comment on above: < 0.034 = negative 0.034 0.120 = indeterminate > 0.120 = positive Test Performed by [facility], [address] [place] [address] [place] Troponin I.cardiac [Mass/Vol] ng/mL 0 - 0.034 ng/mL [place] Comment on above: < 0.034 = negative 0.034 0.120 = indeterminate > 0.120 = positive Test Performed by [facility], [address] [place] [address] [place] US ABDOMEN LIMITEDon 019 Patient Name: RICARDO VILLALPANDO ---Ultrasound--- Exam Date/Time 09/15/2018 16:42:00 EDT Exam US Abdomen Limited Ordering Physician DO MORTON LISA Accession Number [id number] CPT4 Codes 87107 () Reason For Exam elevated liver function [...] on --- Final --- Dictating Physician: MD YONY, YUE Signed Date and Time: 09/15/2018 6:23 pm Signed by: MD LOPEZ RISA Transcribed Date and Time: 09/15/2018 6:24 [facility] [place] [facility] - 09/15/2018 6:24 PM EDT Patient Name: RICARDO VILLALPANDO ---Ultrasound--- Exam Date/Time 09/15/2018 16:42:00 EDT Exam US Abdomen Limited Ordering Physician DO MORTON LISA Accession Number [id number] CPT4 Codes 32436 () Reason For Exam elevated liver function [...] RISA Transcribed Date and Time: 09/15/2018 6:24 [facility]-15-2018 Appearance (U) Clear [facility] [place] Comment on above: Reference Range: Jonathan ar Bilirubin Urine Negative mg/dL [place] Comment on above: Reference Range: Neg ative Color (U) Light-Yellow [place] Comment on above: Reference Range: Lt. Yellow Glucose, Ur Normal mg/dL [place] Comment on above: Reference Range: Nor mal (<70) Ketones Ql (U) Negative mg/dL [place] Comment on above: Reference Range: Neg ative LEUKOCYTES, UA Negative Xavier/uL [place] Comment on above: Reference Range: Neg ative Nitrite, Urine Negative [place] Comment on above: Reference Range: Neg ative Occult Blood,Urine Negative mg/dL [place] Comment on above: Reference Range: Neg ative pH (U) 6.5 [pH] [place] Protein (U) [Mass/Vol] Negative mg/dL [place], [place] Comment on above: Reference Range: Neg ative Specific [place], Urine 1.006 [place] Urobilinogen, Urine Normal mg/dL [place] Comment on above: Reference Range: Nor mal (0-1) Test Performed by [facility], [address], [place] [address] [place], [place] XR CHEST STANDARD (2 VW)on 0 09-15-2018 [facility] Incoming Radiology Results From [facility] - 09/15/2018 5:37 PM EDT Patient Name: RICARDO VILLALPANDO ---Diagnostic Radiology--- Exam Date/Time 09/15/2018 15:22:39 EDT Exam CR Chest PA/LAT Ordering Physician DO MORTON LISA Accession Number [id number] CPT4 Codes 34415 () Reason For Exam elevated wbc Report [...] RISA Transcribed Date and Time: 09/15/2018 5:37 [place], [place] Patient Name: RICARDO VILLALPANDO ---Diagnostic Radiology--- Exam Date/Time 09/15/2018 15:22:39 EDT Exam CR Chest PA/LAT Ordering Physician DO MORTON LISA Accession Number [id number] CPT4 Codes 30019 () Reason For Exam elevated wbc Report [...] RISA Transcribed Date and Time: 09/15/2018 5:37 [place], [place] Vital Signs Date Time Vital Sign Value Performing Clinician Facility 08-27-2024 10:39-0400 Body height 149.[address] Alisson Morton DO Work Phone: [facility] 08-18-2024 14:34-0400 Body height 152.4 cm Toni Bey MD Work Phone: [facility] [facility] 08-18-2024 14:34-0400 Body mass index (BMI) [Ratio] 20.51 kg/m2 Toni Bey MD Work Phone: [facility] 08-18-2024 14:34-0400 Body weight 47.63 kg Toni Bey MD Work Phone: [facility] 08-18-2024 14:34-0400 Diastolic blood pressure 78 mm[Hg] Toni Bey MD Work Phone: [facility] 08-18-2024 14:34-0400 Heart rate 87 /min Toni Bey MD Work Phone: [facility] 08-18-2024 14:34-0400 SaO2% (BldA) [Mass fraction] 97 % Toni Bey MD Work Phone: [facility] 08-18-2024 14:34-0400 Systolic blood pressure 128 mm[Hg] Toni Bey MD Work Phone: [facility] [employer] 08-18-2023 11:05-0400 Body height 152.4 cm Toni Bey MD Work Phone: [facility] 08-18-2023 11:05-0400 Body mass index (BMI) [Ratio] 20.15 kg/m2 Toni Bey MD Work Phone: [facility] 08-18-2023 11:05-0400 Body weight 46.81 kg Toni Bey MD Work Phone: [facility] [employer] 08-18-2023 11:05-0400 Diastolic blood pressure 56 mm[Hg] Toni Bey MD Work Phone: [facility] 08-18-2023 11:05-0400 Heart rate 62 /min Toni Bey MD Work Phone: [facility] 08-18-2023 11:05-0400 Respiratory rate 16 /min Toni Bey MD Work Phone: [facility] 08-18-2023 11:05-0400 SaO2% (BldA) [Mass fraction] 97 % Toni Bey MD Work Phone: [facility] 08-18-2023 11:05-0400 Systolic blood pressure 106 mm[Hg] Toni Bey MD Work Phone: [facility] [employer] 04-04-2023 11:16-0500 Body temperature 97.1 [degF] Dr. Alisson Morton Work Phone: [facility] 04-04-2023 11:16-0500 Diastolic blood pressure 56 mm[Hg] Dr. Alisson Morton Work Phone: [facility] 04-04-2023 11:16-0500 Heart rate 68 /min Dr. Alisson Morton Work Phone: [facility] 04-04-2023 11:16-0500 Respiratory rate 16 /min Dr. Alisson Morton Work Phone: [facility] 04-04-2023 11:16-0500 SaO2% (BldA) [Mass fraction] 98 % Dr. Alisson Morton Work Phone: [facility] 04-04-2023 11:16-0500 Systolic blood pressure 134 mm[Hg] Dr. Alisson Morton Work Phone: [facility] 04-04-2023 10:15-0500 Body height 152.[address] Alisson Morton Work Phone: [facility] 04-04-2023 10:15-0500 Body mass index (BMI) [Ratio] 20.3 kg/m2 Dr. Alisson Morton Work Phone: [facility] 04-04-2023 10:15-0500 Body weight 47.[address] Alisson Morton Work Phone: [facility] 01-04-2023 12:48-0500 Body temperature 98.4 [degF] Dr. Alisson Morton Work Phone: [facility] 01-04-2023 12:48-0500 Diastolic blood pressure 55 mm[Hg] Dr. Alisson Morton Work Phone: [facility] 01-04-2023 12:48-0500 Heart rate 81 /min Dr. Alisson Morton Work Phone: [facility] 01-04-2023 12:48-0500 Respiratory rate 16 /min Dr. Alisson Morton Work Phone: [facility] 01-04-2023 12:48-0500 SaO2% (BldA) [Mass fraction] 98 % Dr. Alisson Morton Work Phone: [facility] 01-04-2023 12:48-0500 Systolic blood pressure 115 mm[Hg] Dr. Alisson Morton Work Phone: [facility] 01-04-2023 11:46-0500 Body height 152.[address] Alisson Morton Work Phone: [facility] 01-04-2023 11:46-0500 Body mass index (BMI) [Ratio] 19.5 kg/m2 Dr. Alisson Morton Work Phone: [facility] 01-04-2023 11:46-0500 Body weight 45.[address] Alisson Morton Work Phone: [facility] 08-25-2022 10:12-0400 Body height 152.4 cm Toni Bey MD Work Phone: [facility] 08-25-2022 10:12-0400 Body mass index (BMI) [Ratio] 19.65 kg/m2 Toni Bey MD Work Phone: [facility] 08-25-2022 10:12-0400 Body weight 45.63 kg Toni Bey MD Work Phone: [facility] 08-25-2022 10:12-0400 Diastolic blood pressure 60 mm[Hg] Toni Bey MD Work Phone: [facility] 08-25-2022 10:12-0400 Heart rate 68 /min Toni Bey MD Work Phone: [facility] 08-25-2022 10:12-0400 Respiratory rate 16 /min Toni Bey MD Work Phone: [facility] 08-25-2022 10:12-0400 SaO2% (BldA) [Mass fraction] 95 % Toni Bey MD Work Phone: [facility] 07-18-2023 10:12-0400 Systolic blood pressure 110 mm[Hg] Toni Bey MD Work Phone: [facility] 06-16-2022 19:58-0400 Body temperature 97.39 [degF] Eric Cintron MD Work Phone: [facility] 06-16-2022 19:58-0400 Diastolic blood pressure 61 mm[Hg] Eric Cintron MD Work Phone: [facility] 06-16-2022 19:58-0400 Heart rate 77 /min Eric Cintron MD Work Phone: [facility] 06-16-2022 19:58-0400 Respiratory rate 18 /min Eric Cintron MD Work Phone: [facility] 06-16-2022 19:58-0400 SaO2% (BldA) [Mass fraction] 97 % Eric Cintron MD Work Phone: [facility] 06-16-2022 19:58-0400 Systolic blood pressure 123 mm[Hg] Eric Cintron MD Work Phone: [facility] 06-01-2022 23:41-0400 Diastolic blood pressure 59 mm[Hg] Dr. Alisson Morton Work Phone: [facility] 06-01-2022 23:41-0400 Heart rate 14 /min Dr. Alisson Morton Work Phone: [facility] 06-01-2022 23:41-0400 Respiratory rate 68 /min Dr. Alisson Morton Work Phone: [facility] 06-01-2022 23:41-0400 Systolic blood pressure 124 mm[Hg] Dr. Alisson Morton Work Phone: [facility] 06-01-2022 23:07-0400 SaO2% (BldA) [Mass fraction] 96 % Dr. Alisson Morton Work Phone: [facility] 06-01-2022 20:32-0400 Body mass index (BMI) [Ratio] 19.4 kg/m2 Dr. Alisson Morton Work Phone: [facility] 06-01-2022 20:32-0400 Body weight 45.[address] Alisson Morton Work Phone: [facility] 06-01-2022 19:08-0400 Body height 152.[address] Alisson Morton Work Phone: [facility] 06-01-2022 19:08-0400 Body temperature 98 [degF] Dr. Alisson Morton Work Phone: [facility] 05-13-2022 14:19-0400 Body temperature 98.5 [degF] Dr. Alisson Morton Work Phone: [facility] 05-13-2022 14:19-0400 Diastolic blood pressure 57 mm[Hg] Dr. Alisson Morton Work Phone: [facility] 05-13-2022 14:19-0400 Heart rate 64 /min Dr. Alisson Morton Work Phone: [facility] 05-13-2022 14:19-0400 Respiratory rate 16 /min Dr. Alisson Morton Work Phone: [facility] 05-13-2022 14:19-0400 SaO2% (BldA) [Mass fraction] 98 % Dr. Alisson Morton Work Phone: [facility] 05-13-2022 14:19-0400 Systolic blood pressure 120 mm[Hg] Dr. Alisson Morton Work Phone: [facility] 05-12-2022 14:31-0400 Body height 149.[address] Alisson Morton Work Phone: [facility] 05-12-2022 14:31-0400 Body weight 44.[address] Alisson Morton Work Phone: [facility] 05-12-2022 12:18-0400 Body mass index (BMI) [Ratio] 19.7 kg/m2 Dr. Alisson Morton Work Phone: [facility] 02-23-2022 08:20-0500 Diastolic blood pressure 60 mm[Hg] Mykel Powell MD Work Phone: [facility] [employer] 02-23-2022 08:20-0500 Heart rate 84 /min Mykel Powell MD Work Phone: [facility] 02-23-2022 08:20-0500 Respiratory rate 18 /min Mykel Powell MD Work Phone: [facility] 02-23-2022 08:20-0500 SaO2% (BldA) [Mass fraction] 100 % Mykel Powell MD Work Phone: [facility] [employer] 02-23-2022 08:20-0500 Systolic blood pressure 113 mm[Hg] Mykel Powell MD Work Phone: [facility] [employer] 02-23-2022 07:31-0500 Body height 152.4 cm Mykel Powell MD Work Phone: [facility] 02-23-2022 07:31-0500 Body mass index (BMI) [Ratio] 18.94 kg/m2 Mykel Powell MD Work Phone: [facility] 02-23-2022 07:31-0500 Body temperature 97.3 [degF] Mykel Powell MD Work Phone: [facility] 02-23-2022 07:31-0500 Body weight 44 kg Mykel Powell MD Work Phone: [facility] [employer] 06-04-2020 11:08-0400 Diastolic blood pressure 50 mm[Hg] Adela Cundra PA-C Work Phone: [facility] Work Phone: 06-04-2020 11:08-0400 Heart rate 73 /min Adela Cundra PA-C Work Phone: [facility] Work Phone: 06-04-2020 11:08-0400 Respiratory rate 15 /min Adela Cundra PA-C Work Phone: [facility] Work Phone: 06-04-2020 11:08-0400 SaO2% (BldA) [Mass fraction] 100 % Adela Snowa PA-C Work Phone: [facility] Work Phone: 06-04-2020 11:08-0400 Systolic blood pressure 103 mm[Hg] Adela Snowa PA-C Work Phone: [facility] Work Phone: 11-09-2019 11:21-0400 BP Diastolic 62 mm[Hg] Zoe Siftit- [place] , [place] 11-09-2019 11:21-0400 BP Systolic 121 mm[Hg] Zoe [place] 11-09-2019 11:21-0400 Pulse (Heart Rate) 81 /min Zoe [place]- [place] 11-09-2019 11:21-0400 Pulse Oximetry 100 % Zoe [place]- [place] , [place] 11-09-2019 11:21-0400 Respiratory Rate 16 /min [place] 03-07-2019 12:11-0500 Diastolic blood pressure 65 mm[Hg] Lisa Smiley MD Work Phone: [employer] Work Phone: 03-07-2019 12:11-0500 Heart rate 77 [...] 50.8 kg Lisa Smiley MD Work Phone: [facility] Work Phone: 02-18-2019 06:20-0500 Body mass index [...] 97 % Sonny Montague MD Work Phone: [facility] Work Phone: 02-18-2019 05:07-0500 Systolic blood pressure 151 mm[Hg] Sonny Montague MD Work Phone: [facility] Work Phone: 02-15-2019 06:27-0500 Body height 152.4 cm Sonny Montague MD Work Phone: [facility] Work Phone: 09-21-2018 14:16-0400 Body Temperature 97.59 [degF] [place], [place] 09-21-2018 14:16-0400 BP Diastolic 74 mm[Hg] [place], [place] 09-21-2018 14:16-0400 BP Systolic 141 mm[Hg] [place] 09-21-2018 14:16-0400 Pulse (Heart Rate) 74 /min [place], [place] 09-21-2018 14:16-0400 Pulse Oximetry 98 % [place] 09-21-2018 14:16-0400 Respiratory Rate 16 /min [place] 09-17-2018 16:01-0400 Height 160 cm [place] 09-15-2018 13:00-0400 BMI (Body Mass Index) 21.72 kg/m2 [place], [place] 09-15-2018 13:00-0400 Body weight 55.61 kg [place] Encounters Encounter Date Encounter Type Care Provider Facility Start: 08-27-2024 End: 08-27-[address] 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 Alisson Morton DO Work Phone: [facility] Start: 08-18-2024 Registered Referred Anabel CabralSaul Irvin Start: 08-17-2024 ambulatory Alisson M Praveen Facility :[facility] Start: 08-09-2024 ambulatory Alisson M Praveen Facility :[facility] Start: 08-09-2024 Registered Referred Anabel CabralSaul Bryan Start: 07-25-2024 End: 07-25-[address] Alisson Morton DO Work Phone: [facility] Start: 07-25-2024 End: 07-25-2024 Patient encounter procedure Fallon RUSSELL -[facility] Work Phone: Start: 07-17-2024 End: 07-17-2024 ambulatory Alisson M Praveen Facility:[facility] Start: 07-17-2024 End: 07-17-2024 Patient encounter procedure Osmar RUSSELL -[facility] Work Phone: Start: 06-20-2024 End: 06-20-[address] Alisson Morton DO Work Phone: [facility] Start: 06-20-2024 End: 06-20-[address] Anabel Duvall MD -[facility] Work Phone: Start: 06-12-2024 End: 06-12-2024 Departed Referred Anabel Bryan Start: 06-12-2024 Registered Referred Anabel Bryan Start: 06-12-2024 End: 06-12-2024 ambulatory Alisson Morton Facility:[facility] Start: 05-09-2024 End: 05-09-[address] Alisson Morton DO Work Phone: [facility] Work Phone: Start: 05-09-2024 End: 05-09-[address] Anabel Duvall MD -[facility] Work Phone: Start: 04-10-2024 End: 04-10-2024 ambulatory Fallon Mcclendon NP Facility:[facility] Start: 04-10-2024 End: 04-10-2024 Patient encounter procedure Fallon Mcclendon RADIO SCRIPT WRITER-C -[facility] Work Phone: Start: 03-21-2024 End: 03-21-2024 ambulatory Anabel Duvall Facility:[facility] Start: 03-21-2024 End: 03-21-[address] Anabel Duvall MD -[facility] Work Phone: Start: 03-16-2024 ambulatory Anabel WALSH Facility:[facility] Start: 03-16-2024 Registered Referred Anabel STEPHENSON - [facility] Start: 02-10-2024 End: 02-10-2024 ambulatory López GIRON Facility:[facility] Start: 01-25-2024 End: 01-25-2024 ambulatory Anabel Duvall Facility:[facility] Start: 12-20-2023 End: 12-20-2023 Subsequent hospital visit by physician Alisson Morton DO Work Phone: [facility] MRI Comment on above: Other specified dise ases of liver Start: 12-20-2023 End: 12-20-2023 ambulatory ALISSON MORTON [facility] Start: 12-16-2023 End: 12-17-2023 ambulatory Anabel WALSH Facility:[facility] Start: 12-15-2023 End: 12-15-2023 ambulatory Fallon Mcclendon RADIO SCRIPT WRITER Facility:[facility] Start: 12-09-2023 End: 12-09-2023 ambulatory Fallon Mcclendon RADIO SCRIPT WRITER Facility:[facility] Start: 12-03-2023 End: 12-03-2023 ambulatory Fallon Mcclendon RADIO SCRIPT WRITER Facility:[facility] Start: 12-01-2023 End: 03-01-2024 Transcribe Orders Alisson Morton DO Work Phone: [facility] Comment on above: Other specified dise ases of liver (Primary Dx) Start: 11-22-2023 End: 11-22-2023 ambulatory Alisson Lima Evettegonzalo Facility:[facility] Start: 11-22-2023 End: 11-22-2023 ambulatory Alisson Lima Praveen Facility:[facility] Start: 11-11-2023 End: 11-11-2023 ambulatory ALISSON [facility] Start: 11-11-2023 End: 11-11-2023 Subsequent hospital visit by physician Alisson Morton DO Work Phone: [facility] Comment on above: Other specified abno rmal findings of blood chemistry Start: 10-26-2023 End: 01-25-2024 Transcribe Orders Alisson Morton DO Work Phone: [facility] [employer] Scheduling Comment on above: Other specified abno rmal findings of blood chemistry (Primary Dx) Start: 08-18-2023 End: 08-18-2023 Office outpatient visit 25 minutes Toni Bey MD Work Phone: [facility] Cardiology Comment on above: 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 (Primary Dx); Persistent atrial fibrillation (HCC); Mixed hyperlipidemia; Vascular dementia, unspecified dementia severity, unspecified whether behavioral, psychotic, or mood disturbance or anxiety (HCC) Start: 07-23-2023 End: 07-23-2023 Telephone encounter Toni Bey MD Work Phone: [facility] Cardiology Comment on above: Cardiac Clearance Start: 07-20-2023 ambulatory Sharmila Connell RN [facility] Start: 07-20-2023 Patient encounter procedure Sharmila Connell RN [facility] Start: 05-11-2023 End: 08-10-2023 Transcribe Orders Brittany Mitchell WIND FIELD MANAGER - EXTERIOR INTERIOR SPECIALIST Work Phone: [facility] Comment on above: Dorsalgia, unspecifi ed (Primary Dx); Unspecified urinary incontinence Start: 04-10-2023 Refill Yeny Waldron ak WIND FIELD MANAGER - EXTERIOR INTERIOR SPECIALIST Work Phone: [facility] Cardiology Start: 04-04-2023 End: 04-04-2023 Emergency department patient visit Dr. Alisson Morton Work Phone: [facility]-Emergency Department Work Phone: Start: 04-04-2023 End: 04-04-2023 Patient encounter procedure Billie Reid WIND FIELD MANAGER.EXTERIOR INTERIOR SPECIALIST Work Phone: [facility] Comment on above: Injury of head, init ial encounter (Primary Dx) Start: 03-04-2023 End: 03-04-[address] Alisson Morton Work Phone: [facility] Gastroenterology Work Phone: Start: 01-04-2023 Non-patient / Non-visit Dr. Joana Morton Work Phone: [facility] Start: 01-04-2023 End: 01-04-2023 Admission to same day surgery center Dr. Alisson Morton Work Phone: [facility]-Endoscopy Work Phone: Start: 01-04-2023 End: 01-04-[address] Alisson Morton Work Phone: [facility] Work Phone: Start: 12-09-2022 Telephone encounter Toni sánchez MD Work Phone: [facility] Cardiology Comment on above: Cardiac Clearance Start: 10-28-2022 End: 10-28-2022 Subsequent hospital visit by physician Alisson Morton DO Work Phone: [facility] US Comment on above: Other specified abno rmal findings of blood chemistry Start: 10-23-2022 Transcribe Orders Alisson Myers Work Phone: [facility] Comment on above: Other specified abno rmal findings of blood chemistry (Primary Dx) Start: 10-21-2022 End: 10-21-[address] Alisson Morton Work Phone: [facility] Work Phone: Start: 10-21-2022 End: 10-21-[address] Alisson Morton Work Phone: [facility]-Physical Therapy Work Phone: Start: 10-10-2022 Refill Yeny benajmin WIND FIELD MANAGER - EXTERIOR INTERIOR SPECIALIST Work Phone: [facility] Cardiology Start: 09-24-2022 End: 09-24-2022 ambulatory Cheryl Lopez PA-C Work Phone: [facility] Laboratory Comment on above: Arrived Hyperlipidemia, unsp ecified (Primary Dx) Start: 09-14-2022 Transcribe Orders Toni Bey MD Work Phone: [facility] Laboratory Comment on above: Other persistent atr ial fibrillation (HCC) (Primary Dx) Start: 08-25-2022 End: 08-25-2022 Office outpatient visit 25 minutes Toni Bey MD Work Phone: [facility] Cardiology Comment on above: 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 Alisson carlos Work Phone: [facility] [place] Start: 06-30-2022 End: 06-30-[address] Alisson Morton Work Phone: [facility] Work Phone: Start: 06-26-[address] Alisson carlos Work Phone: [facility] Start: 06-25-[address] Alisson carlos Work Phone: [facility] Start: 06-24-2022 End: 06-24-[address] Alisson Morton Work Phone: [facility] Work Phone: Start: 06-13-2022 End: 06-16-2022 Evaluation and management of inpatient Eric Cintron MD Work Phone: [facility] 2E TELEMETRY Comment on above: Anemia (Primary Dx); Hyponatremia; Hepatitis Start: 06-13-2022 End: 06-13-2022 Subsequent hospital visit by physician Alisson Morton DO Work Phone: [facility] Vascular Lab Comment on above: Other specified symp toms and signs involving the circulatory and respiratory systems Start: 06-01-2022 End: 06-02-2022 Emergency department patient visit Dr. Alisson Morton Work Phone: [facility]-Emergency Department Start: 05-27-2022 Transcribe Orders Alisson Myers Work Phone: [facility] Comment on above: Other specified symp toms and signs involving the circulatory and respiratory systems (Primary Dx) Start: 05-13-2022 Non-patient / Non-visit Dr. Joana Morton Work Phone: [facility] Start: 05-13-2022 End: 05-13-2022 Non-patient / Non-visit Dr. Alisson Morton Work Phone: [facility] Inpatient Physicians Start: 05-12-2022 Non-patient / Non-visit Dr. Joana Morton Work Phone: [facility] Start: 05-12-2022 Non-patient / Non-visit Dr. Joana Morton Work Phone: [facility] Inpatient Physicians Start: 05-12-2022 End: 05-13-2022 Evaluation and management of inpatient Dr. Alisson Morton Work Phone: [facility]-Medical Surgical 3 Start: 05-12-2022 End: 05-13-[address] Alisson Morton Work Phone: [facility] Work Phone: Start: 02-27-2022 Telephone encounter Gin Cabral CNP Work Phone: [facility] Comment on above: Medication Question; Care Coordination Start: 02-23-2022 End: 02-23-2022 Subsequent hospital visit by physician Mykel Powell MD Work Phone: [facility] Endoscopy Comment on above: Dysphagia Start: 05-13-2021 End: 05-13-2021 Subsequent hospital visit by physician Royce Koehler DO Work Phone: [facility] Comment on above: 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) Start: 05-09-2021 End: 05-09-2021 Discharged Recurring [facility]-Physical Therapy Start: 02-10-2021 End: 02-10-2021 Discharged Recurring [facility]-Physical Therapy Start: 08-20-2020 End: 08-20-2020 Subsequent hospital visit by physician Alisson Morton DO Work Phone: [facility] [place] Comment on above: Abnormal results of liver function studies Start: 06-04-2020 End: 06-04-2020 Subsequent hospital visit by physician Adela Reeves PA-C Work Phone: [facility] Comment on above: Left thyroid nodule Start: 05-21-2020 End: 05-21-2020 Subsequent hospital visit by physician Zoe Wyatt Work Phone: [facility] [place] Comment on above: Thyroid nodule Start: 02-07-2020 End: 02-07-2020 Subsequent hospital visit by physician Alisson Morton Work Phone: [facility] Radiology Start: 11-09-2019 End: 11-09-2019 Subsequent hospital visit by physician Zoe Wyatt Work Phone: [facility] Ultrasound Comment on above: Thyroid nodule Start: 10-18-2019 End: 10-18-2019 Subsequent hospital visit by physician Alisson Morton Work Phone: [facility] [place] Comment on above: Nontoxic single thyr oid nodule Start: 08-21-2019 End: 08-21-2019 Subsequent hospital visit by physician Yeny Huntley Work Phone: 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 Comment on above: Arrived Start: 03-31-2019 End: 03-31-2019 Subsequent hospital visit by physician Alisson Morton Work Phone: [facility] Laboratory Start: 03-07-2019 End: 03-07-2019 Subsequent hospital visit by physician Lisa Smiley MD Work Phone: [facility] End[facility] Comment on above: Arrived Start: 02-11-2019 End: 02-18-2019 Evaluation and management of inpatient Sonny Montague MD Work Phone: [facility] H5 MED SURG Comment on above: Calculus of bile sanam t without cholecystitis with obstruction (Primary Dx); Dilation of biliary tract Start: 09-15-2018 End: 09-21-2018 Evaluation and management of inpatient Alisson Morton Work Phone: [facility] TELEMETRY Procedures Date Procedure Procedure Detail Performing Clinician Start: 08-18-2024 Ecg routine ecg w/least 12 lds w/i&r Toni Bey MD Work Phone: Start: 08-17-2024 Urnls dip stick/tablet reagent auto microscopy Dr. Alisson Morton DO Work Phone: Start: 08-17-[address] Alisson Morton DO Work Phone: Start: 03-16-2024 Measurement of renal function Dr. Alisson carlos DO Work Phone: Comment on above: GFR Calc Start: 11-11-2023 Us abdominal real time w/image limited Alisson Morton DO Work Phone: Start: 08-18-2023 Ecg routine ecg w/least 12 lds w/i&r Toni Bey MD Work Phone: Start: 01-04-[address] Alisson cárdenas Work Phone: Start: 09-24-2022 Comprehensive metabolic panel Cheryl Spi ros PA-C Work Phone: Start: 09-24-2022 Lipid panel Cheryl John PA-C Work Phone: Start: 09-24-2022 Lipid 1996 panel - Serum or Plasma Sharmila Connell RN Start: 09-14-2022 Basic metabolic panel calcium total Toni Bey MD Work Phone: Start: 08-25-2022 Ecg routine ecg w/least 12 lds w/i&r Toni Bey MD Work Phone: Start: 06-16-2022 SARS-CoV-2 (COVID-19) Ag [Presence] in Respiratory specimen by Rapid immunoassay Alisson Morton DO Work Phone: Start: 06-16-2022 Comprehensive metabolic panel Alisson Lima Est erle DO Work Phone: Start: 06-15-2022 Us abdominal real time w/image limited Alisson Morton DO Work Phone: Start: 06-15-2022 Comprehensive metabolic panel Alisson Lima Est erle DO Work Phone: Start: 06-14-2022 Comprehensive metabolic panel Alisson M Est erle DO Work Phone: Start: 06-13-2022 [...] Duplex scan extracranial art compl bi study Alisson Morton DO Work Phone: Start: 06-01-2022 Plain chest X-ray Dr. Alisson Morton Work Phone: Start: 06-01-2022 CT of head without contrast Dr. Alisson morales Work Phone: Start: 05-13-[address] Alisson cárdenas Work Phone: Start: 05-12-2022 Plain chest X-ray Dr. Alisson Morton Work Phone: Start: 02-23-2022 Glucose quantitative blood xcpt reagent strip Mykel Powell MD Work Phone: Start: 11-08-2020 Lipid 1996 panel - Serum or Plasma Mykel nguyen MD Work Phone: Start: 08-20-2020 Us abdominal real time w/image limited Alisson M Praveen DO Work Phone: Start: 06-04-2020 Us guidance needle placement img s&i Adela Reeves PA-C Work Phone: Start: 02-07-2020 Radiologic exam knee complete 4/more views Alisson Morton Work Phone: Start: 11-09-2019 Cytopath fl nongyn, sm/fltr Zoe Wyatt Work Phone: Start: 11-09-2019 Fine needle aspiration bx w/us gdn 1st lesion Zoe Wyatt Work Phone: Start: 10-18-2019 Us soft tissue head & neck real time imge docm Alisson Lima Evettegonzalo Work Phone: Start: 08-21-2019 Basic metabolic panel calcium total Yeny Mirna Kelseyk Work Phone: Start: 08-21-2019 Blood count complete automated Yeny J Yuko Work Phone: Start: 08-21-2019 Hepatic function panel Yeny J Yuko Work Phone: Start: 04-04-2019 CT ABDOMEN PELVIS W CONTRAST Alisson Lima Sandi rle Work Phone: Start: 04-04-2019 Ct thorax w/contrast material Alisson Lima Est erle Work Phone: Start: 03-31-2019 Creatinine blood Alisson Morton Work Phone: Start: 03-07-2019 HM ENDOSCOPY REPORT 3m Scanning Start: 02-18-2019 Assay of lipase Gustavo Muniz MD Work Phone: Start: 02-17-2019 Basic metabolic panel calcium total Gustavo Muniz MD Work Phone: Start: 02-17-2019 Hepatic function panel Gustavo Muniz MD Work Phone: Start: 02-16-2019 Assay of lipase Gustavo Muniz MD Work Phone: Start: 02-16-2019 Basic [...] Phone: Comment on above: Test Performed by [employer] [address] [place] [id number] Start: 02-15-2019 Cmbn ndsc cathj biliary&pncrtc ductal [...] Start: 02-13-2019 Assay of magnesium Gem A Ayr DO Work Phone: Start: 02-13-2019 BASIC METABOLIC PANEL W/ REFLEX TO MG FOR LOW K Gem A Beverley DO Work Phone: Start: 02-13-2019 Hepatic function panel Gem A Loomi s DO Work Phone: Start: 02-12-2019 ADD ON LAB TEST Gem A Beverley DO Work Phone: Start: 02-12-2019 Bilirubin direct Sonny Peres MD Work Phone: Start: 02-11-2019 Mri abdomen w/o contrast material Elisab eth A Beverley DO Work Phone: Start: 02-11-2019 End: 02-11-2019 ADD ON LAB TEST Sonny Montague MD Work Phone: Start: 02-11-2019 PROTIME/INR & PTT Gem Higueraomis DO Work Phone: Start: 02-11-2019 Us abdominal real time w/image limited Yusuf Andino MD Work Phone: Start: 02-11-2019 Basic metabolic panel calcium total Osmar GIRON Work Phone: Start: 02-11-2019 Hepatic function panel Osmar Soni A Work Phone: Start: 02-11-2019 Ecg routine ecg w/least 12 lds w/i&r Osmar GIRON Work Phone: Start: 09-21-2018 Colonoscopy 3m Scanning Start: 09-21-2018 Comprehensive metabolic panel Alisson morales Work Phone: Start: 09-20-2018 Blood count [...] Phone: Start: 09-17-2018 Comprehensive metabolic panel Dimitris Cavazos Work Phone: Start: 09-16-2018 Mri abdomen w/o contrast material Kiko Lau Work Phone: Start: 09-16-2018 Assay of magnesium Alisson M Esterle Work Phone: Start: 09-16-2018 Assay of troponin quantitative Alisson M Es terle Work Phone: Start: 09-16-2018 Blood count complete auto&auto difrntl wbc Alisson M Esterle Work Phone: Start: 09-16-2018 Blood count complete automated Alisson M Es terle Work Phone: Start: 09-15-2018 Assay of troponin quantitative Alisson M Es terle Work Phone: Start: 09-15-2018 Culture bacterial quanttative colony count urine Alisson M Esterle Work Phone: Start: 09-15-2018 Urnls dip stick/tablet rgnt auto w/o microscopy Alisson M Esterle Work Phone: Start: 09-15-2018 Acute hepatitis panel Siobhan Wynn Work Phone: Start: 09-15-2018 Culture bacterial blood aerobic w/id isolates Alisson M Esterle Work Phone: Start: 09-15-2018 Us abdominal real time w/image limited Alisson M Esterle Work Phone: Start: 09-15-2018 Assay of troponin quantitative Alisson M Es terle Work Phone: Start: 09-15-2018 Culture bacterial blood aerobic w/id isolates Alisson M Esterle Work Phone: Start: 09-15-2018 Radiologic exam chest 2 views Alisson M Est erle Work Phone: Start: 09-15-2018 Acute hepatitis panel Alisson Morton Work Phone: Start: 09-15-2018 Assay of troponin quantitative Alisson capone Work Phone: Start: 09-15-2018 Blood count complete auto&auto difrntl wbc Alisson Morton Work Phone: Start: 09-15-2018 Comprehensive metabolic panel Alisson morales Work Phone: Start: 09-15-2018 Procalcitonin (pct) Alisson Morton Work Phone: History of placement of stent for coronary artery disease H/O heart artery stent Sonny Montague MD Work Phone: History of placement of stent for coronary artery disease H/O heart artery stent Sonny Montague MD Work Phone: SARS-CoV-2 & FLU Antigen (Rapid) Dr. Alisson Morton Work Phone: Plan of Treatment Date Care Activity Detail Author Start: 12-01-2029 DTaP/Tdap/Td vaccine (2 - Td or Tdap) DTaP/Tdap/Td vaccine (2 - Td or Tdap) [facility] Start: 12-01-2029 DTaP/Tdap/Td vaccine (2 - Td) DTaP/Tdap/Td vaccine (2 - Td) [facility] Work Phone: Start: 12-01-2029 DTaP/Tdap/Td Vaccines (2 - Td or Tdap) DTaP/Tdap/Td Vaccines (2 - Td or Tdap) [facility] Start: 09-25-2027 Lipid panel Lipid Panel [facility] Start: 09-24-2025 Diabetes Screening Diabetes Screening [facility] Start: 08-20-2025 End: 08-20-2025 Patient encounter procedure 08/20/2025 2:00 PM EDT Office Visit [facility] Cardiology - [place] [address] [facility] [address] [place] [phone] Toni Bey MD [address] [facility] [address] [place] [id number] [facility] Cardiology [facility] Start: 10-09-2024 Influenza vaccination Influenza Vaccine (#1) [facility] Start: 08-18-2024 End: 08-18-2024 Patient encounter procedure [facility] Start: 08-17-2024 [facility] Start: 08-17-2024 Bacteria identified in Urine by Culture Urine Culture [facility] Start: 10-10-2023 COVID-19 Vaccine () COVID-19 Vaccine () [facility] Start: 10-10-2023 COVID-19 Vaccine () COVID-19 Vaccine () [facility] Start: 10-10-2023 Influenza vaccination [facility] Start: 09-25-2023 Creatinine measurement Creatinine Level [facility] Start: 09-25-2023 Diabetes: Estimated Glomerular Filtration Rate for Kidney Health Diabetes: Estimated Glomerular Filtration Rate for Kidney Health [facility] Start: 09-25-2023 Potassium measurement Potassium Level [facility] Start: 08-18-2023 End: 08-18-2023 Patient encounter procedure 08/18/2023 11:00 AM EDT Office Visit [facility] Cardiology [address] [facility] [address] [place] [address] Toni Bey MD [address] [facility] [address] [place] [address] [facility] Start: 08-06-2023 Lipid screen Lipid screen [place], [place] Start: 06-04-2023 Medicare Annual Wellness (AWV) Medicare Annual Wellness (AWV) [facility] Start: 04-04-2023 [facility] Start: 02-08-2023 Advance Directive Discussion Advance Directive Discussion [facility] Start: 02-08-2023 Depression Assessment Depression Assessment [facility] Start: 01-04-2023 Egd insert guide wire dilator passage esophagus EGD GUIDE WIRE INSERTION [facility] Start: 01-04-2023 Egd transoral biopsy single/multiple EGD BIOPSY SINGLE/MULTIPLE [facility] Start: 01-04-2023 Patient discharge [facility] Start: 10-09-2022 COVID-19 Vaccine () COVID-19 Vaccine () [facility] Start: 10-09-2022 Influenza vaccination Influenza Vaccine (#1) [facility] Start: 08-25-2022 End: 08-25-2022 Patient encounter procedure 08/25/2022 10:00 AM EDT Office Visit [facility] Cardiology [address] [facility] [address] [place] [address] Toni Bey MD [address] [facility] [address] [place] [address] [facility] Start: 06-01-2022 [facility] Start: 05-14-2022 Blood chemistry [facility] Start: 05-13-2022 Patient discharge [facility] Start: 05-12-2022 Catheterization of vein [facility] Start: 05-12-2022 Care regimes management [facility] Start: 05-12-2022 Notification of physician [facility] Start: 05-12-2022 [facility] Start: 05-12-2022 Egd insert guide wire dilator passage esophagus EGD GUIDE WIRE INSERTION [facility] Start: 05-12-2022 Egd transoral biopsy single/multiple EGD BIOPSY SINGLE/MULTIPLE [facility] Start: 05-12-2022 Application of intermittent pneumatic compression device [facility] Start: 05-12-2022 Ambulation without limitation [facility] Start: 05-12-2022 Assessment of risk of venous thromboembolism [facility] Start: 05-12-2022 Insertion of catheter into peripheral vein [facility] Start: 05-12-2022 Providing care according to standard [facility] Start: 05-12-2022 Referral to gastroenterology service [facility] Start: 05-12-2022 [facility] Start: 05-12-2022 Following clinical pathway protocol [facility] Start: 05-12-2022 Admission procedure [facility] Start: 04-04-2023 Patient referral to dietitian [facility] Start: 03-13-2022 End: 03-13-2022 Patient encounter procedure 03/13/2022 Office Visit Gastroenterology Gin Finn, WIND FIELD MANAGER - EXTERIOR INTERIOR SPECIALIST [address] [facility] [address] [place] [address] [facility] Start: 02-26-2022 Hemoglobin A1c measurement Diabetes: Hemoglobin A1C [facility] Start: 02-23-2022 End: 02-23-2022 Esophagogastroduodenoscopy transoral diagnostic EGD DIAGNOSTIC Dysphagia 02/23/2022 7:42 AM EST [facility] Start: 12-30-2021 Creatinine measurement Creatinine monitoring [facility] Start: 12-30-2021 Potassium monitoring Potassium monitoring [facility] Start: 11-08-2021 Lipid panel [facility] Start: 01-10-2021 COVID-19 Vaccine (4 - Booster for Pfizer series) COVID-19 Vaccine (4 - Booster for Pfizer series) [facility] Start: 01-10-2021 COVID-19 Vaccine (4 - Pfizer series) COVID-19 Vaccine (4 - Pfizer series) [facility] Start: 10-17-2020 Statin Therapy Statin Therapy [facility] [place], [place] Start: 10-09-2020 Influenza vaccination Flu vaccine (#1) [facility] Work Phone: Start: 08-20-2020 Creatinine measurement Creatinine monitoring [facility] [place] Start: 08-20-2020 Potassium monitoring Potassium monitoring [facility] [place], [place] Start: 06-10-2020 End: 06-10-2020 Patient encounter procedure 06/10/2020 Office Visit General Surgery Kiko Bowie MD [address] [place] [address] [phone] Gen Surg - [facility] Start: 05-27-2020 End: 05-27-2020 Office Visit 05/27/2020 Office Visit General Surgery Kiko Bowie MD [address] [place] [address] [phone] Gen Surg - [facility] Start: 03-31-2020 [facility] Start: 03-31-2020 Creatinine monitoring Creatinine monitoring [place], [place] Start: 02-18-2020 Creatinine monitoring Creatinine monitoring [facility] Work Phone: Start: 02-18-2020 Potassium monitoring Potassium monitoring [facility] Work Phone: Start: 11-25-2019 Pneumococcal Vaccine: 50+ Years (2 of 2 - PCV) Pneumococcal Vaccine: 50+ Years (2 of 2 - PCV) [facility] Start: 11-25-2019 Pneumococcal Vaccine: 65+ (2 of 2 - PCV) Pneumococcal Vaccine: 65+ (2 of 2 - PCV) [facility] Start: 11-25-2019 Pneumococcal Vaccine: 65+ Years (2 - PCV) Pneumococcal Vaccine: 65+ Years (2 - PCV) [facility] Start: 11-25-2019 Pneumococcal Vaccine: 65+ Years (2 of 2 - PCV) Pneumococcal Vaccine: 65+ Years (2 of 2 - PCV) [facility] Start: 10-10-2019 Influenza vaccination Flu vaccine (#1) [place], [place] Start: 09-22-2019 Creatinine monitoring Creatinine monitoring [place], [place] Start: 09-22-2019 Potassium monitoring Potassium monitoring [place], [place] Start: 08-06-2019 Lipid panel Lipid screen [place], [place] Start: 08-06-2019 Lipid screen Lipid screen [facility] Work Phone: Start: 05-25-2019 End: 05-25-2019 Office Visit 05/25/2019 Office Visit Cardiology Toni Bey MD [address] [facility] [address] [place] [address] [phone] [facility] Start: 04-04-2019 Hospital Encounter 04/04/2019 Hospital Encounter Radiology Alisson Morton, [address] [place] [address] [phone] [facility] Start: 10-09-2018 Influenza vaccination Flu vaccine (#1) [place], [place] Start: 10-04-2018 End: 10-04-2018 Office Visit 10/04/2018 Office Visit Cardiology Yeny Huntley, WIND FIELD MANAGER - EXTERIOR INTERIOR SPECIALIST [address] [place] [address] [phone] [facility] Start: 08-05-2018 Annual Wellness Visit (AWV) Annual Wellness Visit (AWV) [facility] Start: 2017 RSV Immunization for Adults (1 - 1-dose 75+ series) RSV Immunization for Adults (1 - 1-dose 75+ series) [facility] Start: 10-16-2007 Pneumococcal 65+ years Vaccine (1 of 2 - PCV13) Pneumococcal 65+ years Vaccine (1 of 2 - PCV13) [place], [place] Start: 2005 Annual Wellness Visit (AWV) Annual Wellness Visit (AWV) [place] Start: 2002 Hepatitis B Vaccines (1 of 3 - Risk 3-dose series) Hepatitis B Vaccines (1 of 3 - Risk 3-dose series) [facility] Start: 2002 RSV Immunization aged 60 or older (1 - 1-dose 60+ series) RSV Immunization aged 60 or older (1 - 1-dose 60+ series) [facility] Start: 1992 Colon cancer screen colonoscopy Colon cancer screen colonoscopy [place], [place] Start: 1992 Shingles Vaccine (1 of 2) Shingles Vaccine (1 of 2) [facility] Start: 1992 Shingrix Vaccine (1 of 2) Shingrix Vaccine (1 of 2) [facility] Start: 1992 Zoster Vaccines (1 of 2) Zoster Vaccines (1 of 2) [facility] Start: 1961 DTaP/Tdap/Td vaccine (1 - Tdap) DTaP/Tdap/Td vaccine (1 - Tdap) [place], [place] Start: 1961 Hepatitis A Vaccines (1 of 2 - Risk 2-dose series) Hepatitis A Vaccines (1 of 2 - Risk 2-dose series) [facility] Start: 1961 Urine microalbumin profile DTaP,Tdap,Td Vaccine (1 - Tdap) [facility] Start: 1961 Urine screening for protein Diabetes: Urine Protein Screening [facility] Start: 1960 Diabetes: Urine Albumin-Creatinine Ratio for Kidney Health Diabetes: Urine Albumin-Creatinine Ratio for Kidney Health [facility] Start: 1960 Hepatitis C screening Hepatitis C Screening [facility] Start: 1954 Depression Monitoring Depression Monitoring [facility] Start: 1954 Depression Screen Depression Screen [facility] Start: 1954 Depression Screening Depression Screening [facility] Start: 1953 DTaP/Tdap/Td vaccine (1 - Tdap) DTaP/Tdap/Td vaccine (1 - Tdap) [facility] Work Phone: Start: 1952 Diabetic foot examination Diabetes: Foot Exam [facility] Start: 1952 Glaucoma screening Diabetes: Retinopathy Screening [facility] Start: 1952 Preventive dental service Diabetes: Dental Exam [facility] Start: 10-16-1943 Hepatitis A Vaccines (1 of 2 - Risk 2-dose series) Hepatitis A Vaccines (1 of 2 - Risk 2-dose series) [facility] Start: 1942 Echocardiography Echocardiogram [facility] Start: 1942 Hemoglobin A1c measurement Diabetes: Hemoglobin A1C [facility] Start: 1942 Hepatitis B Vaccines (1 of 3 - 3-dose series) Hepatitis B Vaccines (1 of 3 - 3-dose series) [facility] Start: 1942 Medicare Annual Wellness (AWV) Medicare Annual Wellness (AWV) [facility] Start: 1942 Screening for osteoporosis Bone Density Scan [facility] Bacteria identified in Blood by Culture Blood culture #1 - Suspected Infection Microbiology STAT 06/13/2022 2:43 PM EDT [facility] Bacteria identified in Blood by Culture Blood culture #1 - Suspected Infection Microbiology STAT 06/13/2022 3:49 PM EDT [facility] Bacteria identified in Urine by Culture Urine Culture [facility] End: 03-07-2019 Blood glucose - POCT Blood glucose - POCT Point of Care Testing Routine One Time for 1 Occurrences starting 03/07/2019 until 03/07/2019 [facility] Work Phone: Comment on above: One Time for 1 Occurrences starting 02/09 until 03/07/2019 Comprehensive metabo lic 2000 panel Comprehensive Metabolic Panel Lab Routine Daily until discontinued starting 09/17/2018, 1 completed [facility], [place] Comment on above: Daily until discontinued starting 2018, 1 completed End: 05-13-2021 CT HEAD WO CONTRAST [facility] Work Phone: Comment on above: Once for 1 Occurrences starting 05/14/19 22 until 05/13/2021 End: 06-13-2022 Hemoglobin.gastrointestinal.low er [Presence] in Stool by Immunoassay --1st specimen [facility] Work Phone: Comment on above: STAT (Lab) for 1 Occurrences starting until 06/13/2022 Once (Lab) for 1 Occ urrences starting 06/13/2022 until 06/13/2022 Initiate Oxygen Ther apy Protocol [facility] Comment on above: Daily until discontinued starting 2018 Daily until disconti nued starting 02/11/2019 End: 12-20-2023 MR Abdomen WO and W contrast IV [facility] Work Phone: Comment on above: Once for 1 Occurrences starting 12/20/19 24 until 12/20/2023 OUTSIDE PROCEDURE SCAN OUTSIDE P ROCEDURE SCAN Procedures Ordered: 06/13/2022 [facility] Comment on above: Ordered: 06/13/2022 OUTSIDE PROCEDURE SCAN OUTSIDE P ROCEDURE SCAN Procedures Ordered: 09/24/2022 [facility] Comment on above: Ordered: 09/24/2022 OUTSIDE PROCEDURE SCAN OUTSIDE P ROCEDURE SCAN Procedures Ordered: 10/27/2022 [facility] Comment on above: Ordered: 10/27/2022 Patient Education [facility] Work Phone: Patient referral [facility] Work Phone: End: 03-07-2019 Pulse Oximetry Spot Check Pulse Oximetry Spot Check Respiratory Care Routine One Time for 1 Occurrences starting 03/07/2019 until 03/07/2019 [employer] Work Phone: Comment on above: One Time for 1 Occurrences starting 02/09 until 03/07/2019 End: 09-21-2018 Surgical Pathology Surgical Pathology Lab Routine Once for 1 Occurrences starting 09/21/2018 until 09/21/2018 [facility] Comment on above: Once for 1 Occurrences starting 09/22/19 until 09/21/2018 Surgical Pathology [facility] [place], [place] End: 02-15-2019 Surgical Pathology Surgical Pathology Lab Routine Once for 1 Occurrences starting 02/15/2019 until 02/15/2019 [facility] Work Phone: Comment on above: Once for 1 Occurrences starting 02/15/19 until 02/15/2019 Tissue exam [facility] Work Phone: Comment on above: Release Upon Ordering for 1 Occurrences starting 02/23/2022, 1 completed Urine culture [facility] End: 10-28-2022 US Abdomen [facility] [employer] [facility] Work Phone: Comment on above: Once for 1 Occurrences starting 10/29/19 until 10/28/2022 End: 05-21-2020 US Thyroid US Thyroid Imaging Routine Thyroid nodule 1 Occurrences starting 05/21/2020 until 05/21/2020 [facility] Work Phone: Comment on above: 1 Occurrences starting 05/21/2020 until 05/21/2020 US THYROID US THYROID Imagi ng Routine Thyroid nodule 05/21/2020 1:55 PM EDT [facility] Work Phone: Immunizations Immunization Date Immunization Notes Care Provider [facility] 01-11-2023 influenza virus vaccine, unspecified formulation Alisson Morton DO Work Phone: [facility] 12-23-2021 Influenza, high dose seasonal Dr. Alisson Morton DO Work Phone: [facility] 12-23-2021 influenza, high dose seasonal, preservative-free Dr. Alisson Morton Work Phone: [facility] 12-23-2021 influenza virus vaccine, unspecified formulation Toni Bey MD Work Phone: [facility] 11-15-2020 Pfizer SARS-CoV-[address] Alisson Morton Work Phone: [facility] 05-03-2020 Pfizer SARS-CoV-[address] Alisson Morton Work Phone: [facility] 04-09-2020 Pfizer SARS-CoV-[address] Alisson Morton Work Phone: [facility] Payers Date Payer Category Payer Self-pay [id number] 2021 Medicare supplementa l policy (as second payer) MMO MEDICARE SUPPLEMENT [id number] 2021 Unknown [id number] 2015 Unknown xxxxxxxxxxxx [id number] 2015 Unknown [employer] [address] [id number] 2015-Present [phone] [address] [place] [address] [id number] 2015 Unknown [id number] 2014 Medicare MEDICARE MEDICAR E PART A AND B xxxxxxxxxxx 2014-Present [phone] [address] [place], [place] [address] [id number] 2014 Medicare MEDICARE MEDICAR E PART A AND B [id number] 2014-Present [phone] [place] [address] [id number] .[id number] 2007 Medicare [id number]. 1.13.680.2 .7.3.008475.315 2007 Medicare [id number] 1.2.840.456952.1.13.239.2 .7.3.160921.315 Unknown [id number] 2.16.840.1.736532.3.579.2 .462 Unknown [id number] 2.16.840.1.551263.3.579.2 .462 Unknown [id number] 2.16.840.1.999599.3.579.2 .462 Unknown [id number] 2.16.840.1.401870.3.579.2 .462 Unknown [id number] 2.16.840.1.465027.3.579.2 .462 Unknown [id number] 2.16.840.1.466475.3.579.2 .462 Unknown [id number] 2.16.840.1.855702.3.579.2 .462 Unknown [id number] 2.16.840.1.597522.3.579.2 .462 Unknown [id number] 2.16.840.1.198613.3.579.2 .462 Unknown [id number] 2.16.840.1.304047.3.579.2 .462 Unknown [id number] 2.16.840.1.592576.3.579.2 .462 Unknown [id number] 2.16.840.1.225148.3.579.2 .462 Unknown [id number] 2.16.840.1.504570.3.579.2 .462 Unknown [id number] 2.16.840.1.333906.3.579.2 .462 Unknown [id number] 2.16.840.1.267100.3.579.2 .462 Unknown [id number] 2.16.840.1.332556.3.579.2 .462 Unknown [id number] 2.16.840.1.894961.3.579.2 .462 Unknown [id number] 2.16.840.1.868623.3.579.2 .462 Unknown [id number] 2.16.840.1.402942.3.579.2 .462 Unknown [id number] 2.16.840.1.355705.3.579.2 .462 Unknown [id number] 2.16.840.1.831892.3.579.2 .462 Social History Date Type Detail Facility Start: 09-21-2018 End: 08-27-2024 Tobacco smoking status NHIS Never smoker [facility] Start: 09-21-2018 End: 08-18-2024 Alcohol intake Not Currently [facility] [email or web address] Start: 1940 [facility] Assigned At [facility] [place] Start: 03-07-2019 End: 11-05-2020 Alcohol intake [facility] (finding[facility] Start: 08-04-2018 End: 03-07-2019 Tobacco use and exposure Never used [facility] [place] Start: 1940 Sex Assigned At Female [facility] Work Phone: Start: 02-13-2022 End: 10-28-2022 Exposure to SARS-CoV-2 (event) Not sure [facility] Start: 02-10-2019 End: 04-04-2023 Tobacco smoking status SCIS Unknown if ever smoked [facility] Start: 02-10-2019 Non-smoker [facility] Start: 02-24-2022 End: 06-13-2022 Alcohol intake Not Asked [facility] Start: 06-14-2022 End: 08-18-2024 History of Social function [facility] Start: 11-27-2021 Sexual orientation Heterosexual (fin sam) [facility] Start: 08-25-2022 End: 08-18-2024 Alcohol intake Lifetime non-drinker (finding) [facility] Start: 09-08-2021 Sex Female (finding) [facility] NEGATED: Highlighted row [facility] Medical Equipment Procedure Code Equipment Code Equipment Origin al Text Equipment Identifier Dates TEST SUGAR ONCE A DAY [id number] Start: 03-27-2021 TEST SUGAR ONCE A DAY [id number] Start: 03-27-2021 Goals Date Patient Goal Desired Activity /State Functional Status Date Assessment Result Facility 05-13-2022 Functional status Bathroom Privilege [facility] Work Phone: Mental Status Date Assessment Result Facility 01-04-2023 Cognitive function Voice/Name [facility] Work Phone: 06-01-2022 Cognitive function Level Of Cons ciousness Awake;Alert;Appropriate;Follow s Commands [facility] Work Phone: 05-13-2022 Cognitive function Appropriate;Cooperativ e [facility] Work Phone: 05-13-2022 Cognitive function Voice/Name [facility] Work Phone: Clinical Notes 02-13-2019 to 08-18-2024 Toni Bey MD - 08/18/2024 2:30 PM EDT Note Date & Type Note Facility 08-18-2024 History of Presen t illness Narrative [facility] Medical [facility] Cardiology [facility] C[facility] - [address] [facility] [address] Dept: [phone] Dept Visit type: Established : 1940 Chief Complaint: Chief Complaint Patient presents with 1 Year Follow-up Coronary Artery Disease History of Present Illness: Ricardo Villalpando is a 83 y.o. female who is here in follow-up with her daughter. She has advanced dementia. She now lives in a ch[facility]. There have not been complaints of chest pain or shortness of breath. The daughter denies known problems with syncope or near syncope. She is active but is limited in her activities. Past Medical History: Medical History[1] Past Surgical History Surgical History[2] Family History Family History[3] Social History Social History[4] Allergies: Allergies[5] Medications: Current Medications[6] Review of Systems: Review of Systems Constitutional: Negative for activity change, chills, diaphoresis, fatigue and fever. HENT: Negative for nosebleeds and trouble swallowing. Eyes: Negative for discharge and visual disturbance. Respiratory: Negative for apnea, cough, chest tightness, shortness of breath and wheezing. Cardiovascular: Positive for leg swelling (slight). Negative for chest pain and palpitations. Gastrointestinal: Negative for abdominal distention, abdominal pain, [...] for dysphoric mood. Physical Examination: Vitals: Vitals: 08/18/24 1434 BP: 128/78 BP Location: Left arm Patient Position: Sitting BP Cuff Size: Adult Pulse: 87 SpO2: 97% Weight: 105 lb (47.6 kg) Height: 5' (1.524 m) Body mass index is 20.51 kg/m . Physical Exam Constitutional: Appearance: Normal appearance. HENT: Head: Normocephalic and atraumatic. Nose: Nose [...] focal deficit present. Mental Status: She is alert. She is confused. Cranial Nerves: Cranial nerves [...] BUN 18 (H) 09/24/2022 CREATININE 0.85 09/24/2022 [facility] Lab Results Component Value Date CHOL 143 [...] and Plan: 1. Coronary artery disease involving false pass coronary artery of false pass heart without angina pectoris 2. Persistent atrial fibrillation (HCC) 3. Mixed hyperlipidemia 1. Coronary artery disease: She has a history of remote stenting. She is doing well with no symptoms of angina per the chcf. Continued medical therapy is recommended. 2. History of prior atrial fibrillation: She has not had any documented recurrence. She is not anticoagulated due to risks. 3. Hyperlipidemia: On therapy. 4. Advanced dementia. [1] Past Medical History: Diagnosis Date Anemia Anxiety GERD (gastroesophageal reflux disease) H/O heart artery stent 08/04/2018 History of blood transfusion Hx of blood clots Hyperlipidemia Hypertension [2] Past Surgical History: Procedure Laterality Date CHOLECYSTECTOMY 03/2019 COLONOSCOPY COLONOSCOPY 03/07/2019 stent removal COLONOSCOPY 09/21/2018 ERCP (HISTORICAL) 02/15/2019 EYE SURGERY Bilateral cataract THROAT SURGERY 2014 TUBAL LIGATION 1988 UPPER GASTROINTESTINAL ENDOSCOPY 08/08/2018 Dr Carroll [facility] [3] Family History Problem Relation Name Age of Onset High Blood Pressure Mother Heart disease Brother Cancer Brother Coronary artery disease Brother High Blood Pressure Brother Diabetes Brother [4] Social History Tobacco Use Smoking status: Never Smokeless tobacco: Never Vaping Use Vaping status: Never Used Substance Use Topics Alcohol use: Never Drug use: Never [5] Allergies Allergen Reactions Ticagrelor Shortness of breath [6] Current Outpatient Medications: Lancets (OneTouch Delica) lancets 30G, TEST SUGAR ONCE A DAY, Disp: , Rfl: magnesium hydroxide (Milk of Magnesia) 400 MG/5ML suspension, Take 30 mL by mouth Nightly., Disp: , Rfl: metFORMIN (Glucophage) 500 MG tablet, Take 500 mg by mouth in the morning and 500 mg in the evening. Take with meals., Disp: , Rfl: mirtazapine (Remeron) 15 MG tablet, Take 15 mg by mouth Nightly., Disp: , Rfl: OneTouch Ultra test strip, TEST SUGAR ONCE A DAY, Disp: , Rfl: pantoprazole (ProtoNix) 40 MG EC tablet, Take 40 mg by mouth every morning (before breakfast). Do not crush, chew, or split., Disp: , Rfl: QUEtiapine (SEROquel) 25 MG tablet, Take 25 mg by mouth 2 times daily., Disp: , Rfl: rivastigmine (Exelon) 3 MG capsule, Take 3 mg by mouth 2 times daily., Disp: , Rfl: sertraline (Zoloft) 50 MG tablet, Take 50 mg by mouth daily., Disp: , Rfl: torsemide (Demadex) 20 MG tablet, TAKE 1 TABLET BY MOUTH EVERY DAY, Disp: 90 tablet, Rfl: 1 therapeutic multivitamin-minerals (Theragran-M) tablet, Take 1 tablet by mouth daily. (Patient not taking: Reported on 08/18/2024), Disp: , Rfl: tiZANidine (Zanaflex) 4 MG tablet, TAKE 1 TABLET BY MOUTH THREE TIMES A DAY NEEDED *50 TABLETS TO LAST 30 DAYS* (Patient not taking: Reported on 08/18/2024), Disp: , Rfl: documented in this encounter [facility] 08-18-2024 Evaluation note Diagnosis Onset Date Resolution Dysphagia chronic August 18 9:09am Esophageal stenosis chronic August 18, 2024 9:09am [facility] Work Phone: 1(377) 323-572507-10-2024 History of Present illness Narrative* Toni Bey MD - 08/18/2023 11:00 AM EDT [facility] Cardiology [facility] [address] [place] [address] [facility] [address] Dept: [phone] Dept Visit type: Established : 1940 Chief Complaint: Chief Complaint Patient presents with 1 Year Follow-up Coronary Artery Disease History of Present Illness: Ricardo Villalpando is a 82 y.o. female who [...] 1989 UPPER GASTROINTESTINAL ENDOSCOPY 08/08/2018 Dr Carroll [facility] Family History Family History Problem Relation [...] BUN 18 (H) 09/24/2022 CREATININE 0.85 09/24/2022 [facility] Lab Results Component Value Date CHOL 143 [...] and Plan: 1. Coronary artery disease involving false pass coronary artery of false pass heart without angina pectoris 2. Persistent atrial [...] already stopped her statin. documented in this [facility]06-18-2024 Telephone encounter Note* Telephone Encounter - Olivia Leigh - 07/27/2023 9:00 AM EDT Form signed and faxed back to [phone]. Form uploaded to [employer]. [id number] Miscellaneous Notes* Telephone Encounter - Olivia eLigh - 07/27/2023 9:00 AM EDT Form signed and faxed back to [phone]. Form uploaded to [employer]. * Telephone Encounter - Olivia Leigh - 07/23/2023 4:20 PM EDT Received form from [facility] for cardiac clearance for EGD with MAC sedation. Form and last OV given to nurse. documented in this [facility]06-14-2024 Telephone encounter Note* Telephone Encounter - Olivia Leigh - 07/23/2023 4:20 PM EDT Received form from [facility] for cardiac clearance for EGD with MAC sedation. Form and last OV given to nurse. [id number] Miscellaneous Notes* Telephone Encounter - Olivia Leigh - 07/23/2023 4:20 PM EDT Received form from [facility] for cardiac clearance for EGD with MAC sedation. Form and last OV given to nurse. documented in this encounterSShelby Memorial HospitalQqgemy21-36-5969 Telephone encounter Note* Telephone Encounter - Sharmila Connell RN - 07/20/2023 7:29 AM EDT S: Patient's daughter Margarita spoke with [facility] nurse regarding fall. B: Onset of symptoms/concern [...] sure if the patient should be evaluated forthe fall. R: Daughter advised a message will be sent to the provider and the office will follow up. Daughter also going to call the office back after they open this morning. Daughter understands and no furtherneeds at this time. Patient instructed to call back with new or worsening symptoms. Reason for Disposition [1] Recent fall AND [2] no injury Protocols used: Falls and Cvsxiwr-[id number]-CK [facility] [id number] Miscellaneous Notes* Telephone Encounter - Sharmila Connell RN - 07/20/2023 7:29 AM EDT S: Patient's daughter Margarita spoke with [facility] nurse regarding fall. B: Onset of symptoms/concern [...] sure if the patient should be evaluated forthe fall. R: Daughter advised a message will be sent to the provider and the office will follow up. Daughter also going to call the office back after they open this morning. Daughter understands and no furtherneeds at this time. Patient instructed to call back with new or worsening symptoms. Reason for Disposition [1] Recent fall AND [2] no injury Protocols used: Falls and Cmunpua-HXBCJ-TY documented in this [facility]03-06-2024 Telephone encounter Note* Telephone Encounter - Olivia Leigh - 04/14/2023 12:37 PM EST Patient is scheduled to see JDR on 08/18/23. [facility] [id number] Miscellaneous Notes* Telephone Encounter - Olivia Leigh - 04/14/2023 12:37 PM EST Patient is scheduled to see JDR on 08/18/23. * Telephone Encounter - Barbi Horton RN - 04/12/2023 1:01 PM EST BEATRIS: 08/25/22, Labs: 09/24/22 documented in this [facility]03-04-2024 Telephone encounter Note* Telephone Encounter - Barbi Horton RN - 04/12/2023 1:01 PM EST BEATRIS: 08/25/22, Labs: 09/24/22 [id number] Miscellaneous Notes* Telephone Encounter - Barbi Horton RN - 04/12/2023 1:01 PM EST BEATRIS: 08/25/22, Labs: 09/24/22 documented in this [facility]02-25-2024 History of Present illness Narrative* Billie Reid APRN.CNP - 04/04/2023 10:06 AM EST Patient was brought in with complaints of a fall last night. Patient's daughter said they were running in a parking lot and she tripped and wiped out. Patient is not on any blood thinners but did hither head. Due to age and risk factors patient is being sent to the ER for a more thorough evaluation as patient has dementia so it is extremely hard to rule out head injury. Patient's daughter was okay with this patient's daughter will take her to the ER. [facility] History and physical note Author Roque Herrera [facility] January 04, 2023 11:21am Note Date/Time January 04, 2023 11:21am [facility] Medical Records Department [address] [place] [address] History & Physical Exam 01/04/23 1120 MR#: [id number] Acct: [id number] Name: RICARDO VILLALPANDO Rep #:[id number] : 1940 82 From: Roque Herrera DO PCP: Alisson Morton DO [place] [facility] [place] [address] History and Physical Date of Admission: 01/04/23 81 F who presents with trouble swallowing. She was brought to the emergency department by her daughter for complaint of difficulty swallowing.? Patient apparently was having a hard time swallowing her meal yesterday.? She had a hardtime swallowing her pills today.? Patient has history of EGD with esophageal dilatation around of 2021.? She per daughter had been doing relativelywell until recently.? She had had 1 prior dilatation years ago.? Patient currently at assisted living facility.? Patient has history of dementia and is somewhat of a poor historian.? Apparently she is able to swallow liquids.? Her last dilatation was in [place]. ?Imaging demonstrates a large hiatal hernia. [facility] Medical History (Updated 05/12/22 @ 18:[address] Nevarez Friend, DO) Anemia Atherosclerotic heart disease of false pass coronary artery without angina pectoris Dementia Diabetes [...] (Auto) 70.4 H, Lymph % (Auto) 17.0 L,[place] % (Auto) 8.8, Eos % (Auto) 2.9, [...] Herrera DO> Cosigner Signature (if applicable): CC: Alisson Morton DO; Roque Herrera DO~ Signed [facility] Work Phone: 1(385) 542-673511-27-2023 Procedure [facility] 01-04-2023 Procedure [facility]11-02-2023 Telephone encounter Note* Telephone Encounter - Olivia Leigh - 12/10/2022 1:03 PM EDT Form signed and faxed back to [phone] on 12/10/22. Form uploaded to [employer]. [place] [id number] Miscellaneous Notes* Telephone Encounter - Olivia Guadarramaler - 12/10/2022 1:03 PM EDT Form signed and faxed back to [phone] on 12/10/22. Form uploaded to [employer]. * Telephone Encounter - Olivia Lu - 12/09/2022 2:03 PM EDT Received fax from [facility] for cardiac clearance for EGD on 01/04/23. Form and last OV given to nurse. documented in this [facility]11-01-2023 Telephone encounter Note* Telephone Encounter - Olivia Lu - 12/09/2022 2:03 PM EDT Received fax from [facility] for cardiac clearance for EGD on 01/04/23. Form and last OV given to nurse. [place] [id number] Miscellaneous Notes* Telephone Encounter - Olivia Lu - 12/09/2022 2:03 PM EDT Received fax from [facility] for cardiac clearance for EGD on 01/04/23. Form and last OV given to nurse. documented in this [facility]09-13-2023 Discharge summary Author Ami Thayer [facility] October 21, 2022 1:29pm Note Date/Time October 21, 2022 1:29pm [facility] Physical Therapy [facility] [address] [place] [address]. [address] [place] [address] / REHABILITATION SERVICES DISCHARGE SUMMARY MR#: [id number] Acct: [id number] Name: RICARDO VILLALPANDO Rep #: [id number] : 1940 82 From: Ami Thayer PT, Cert. MDT Referring Dr.: Alisson Morton DO Status: REG RCR Insurance: MEDICARE PART A B [facility] Discharge Summary D/C summary: It has been my pleasure to treat RICARDO VILLALPANDO referred by Dr. Alisson Morton DO, with the diagnosis of SCIATIC [...] please feel free to call me at [phone]. Thank you for the referral of this patient. Sincerely, Ami Thayer, PT, Cert MDT Balance/Gait/Functional tests Balance/Special Test Scores Oswestry Low Back Score: 5 TUG Test Time Seconds: 11.53 Tug Test: <20 sec.=mostly independent 30 Second Chair Rise Test Seconds: 12 Improvement % Improvement: 98 <Electronically signed by Ami Thayer PT, Cert. MDT> 10/21/22 1329 CC: Alisson Lima Praveen, DO ~ ABIGAIL Signed [facility] Work Phone: 1(724) 236-602108-17-2023 Miscellaneous Notes* Result Encounter Note - Cheryl Lopez PA-C - 09/24/2022 9:36 AM EDT Emigdio, Looks like labs were done for refill request. Liver function is less elevated that before, but please make sure she is following up on this with PCP or GI. Looks like she was admitted in June with this issue. documented in this [facility]08-17-2023 Progress note* Result Encounter Note - Cheryl Lopez PA-C - 09/24/2022 9:36 AM EDT Emig[facility], Looks like labs were done for refill request. Liver function is less elevated that before, but please make sure she is following up on this with PCP or GI. Looks like she was admitted in June with this issue. [facility] Work Phone: [phone] 302-331208-07-2023 Miscellaneous Notes* Result Encounter Note - Cheryl Lopez PA-C - 09/14/2022 3:15 PM EDT Mrs. Villalpando, Your blood work you had done on September 14 look stable. Please call with any questions or concerns. Thank you, Cheryl Lopez PA-C documented in this [facility]08-07-2023 Progress note* Result Encounter Note - Cheryl Lopez PA-C - 09/14/2022 3:15 PM EDT Mrs. Villalpando, Your blood work you had done on September 14 look stable. Please call with any questions or concerns. Thank you, Cheryl Lopez PA-C [facility] Work Phone: [phone] 922-141307-18-2023 NoteSinus Rhythm -Poor R-wave progression -may be secondary to pulmonary disease consider old anterior infarct. Low voltage with rightward P-axis and rotation -possible pulmonary disease. ABNORMAL [facility] [id number] NoteSinus Rhythm -Poor R-wave progression -may be secondary to pulmonary disease consider old anterior infarct. Low voltage with rightward P-axis and rotation -possible pulmonary disease. ABNORMAL [facility] [id number] History of Present illness Narrative* Toni Bey MD - 08/25/2022 10:00 AM EDT [facility] Cardiology [facility] [address] [facility] [address] [facility] [address] Dept: [phone] Dept Visit type: Established : 1940 Chief Complaint: Chief Complaint Patient presents with 1 Year Follow-up Coronary Artery Disease History of Present Illness: Ricardo Villalpando is a 81 y.o. female who [...] 1989 UPPER GASTROINTESTINAL ENDOSCOPY 08/08/2018 Dr Carroll [facility] Family History Family History Problem Relation [...] BUN 21 (H) 06/16/2022 CREATININE 0.77 06/16/2022 @[facility]@ Lab Results Component Value Date CHOL 127 11/08/2020 Lab Results Component Value Date TRIG 63 11/08/2020 Lab Results Component Value Date HDL 61 (H) 11/08/2020 No results found for: LDLCALC NT PRO BNP Date Value Ref Range Status 06/13/2022 575 (H) <20 - 300 pg/mL Final Assessment and Plan: 1. Coronary artery disease involving false pass coronary artery of false pass heart without angina pectoris 2. Persistent atrial fibrillation (HCC) 3. Mixed hyperlipidemia 1. Coronary artery disease: She is currently stable. She has a history of stenting. She has no symptoms of angina. 2. Hyperlipidemia: On therapy. 3. Progressive dementia. 4. Recurrent anemia documented in this [facility]06-14-2023 Telephone encounter Note* Telephone Encounter - Olivia Leigh - 07/22/2022 12:51 PM EDT Patient now scheduled with JDR on 08/25/22. [id number] Miscellaneous Notes* Telephone Encounter - Olivia Leigh - 07/22/2022 12:51 PM EDT Patient now scheduled with JDR on 08/25/22. * Telephone Encounter - Leslie Samson RN - 07/20/2022 8:26 AM EDT Last OV with JDR on 08/20/21 (next OV 02/20/21 not scheduled) CMP 06/16/22 documented in this encounterSShelby Memorial HospitalKjautv19-84-2691 Telephone encounter Note* Telephone Encounter - Leslie Samson RN - 07/20/2022 8:26 AM EDT Last OV with JDR on 08/20/21 (next OV 02/20/21 not scheduled) CMP 06/16/22 [facility]Hkmujf82-10-5974 Note* Care Coordination - Alex Delatorre - 06/16/2022 3:28 PM EDT Discharge med list, MAR and covid transfer information transmitted to [facility]. 7000 completed in [facility]. Facility is aware. [facility] [id number] Note* Care Coordination - Alex Delatorre - 06/16/2022 3:28 PM EDT Discharge med list, MAR and covid transfer information transmitted to [facility] via [facility] per TCC request. 7000 completed in [facility]. Facility is aware. [place] [id number] Miscellaneous Notes* Care Coordination - Alex Delatorre - 06/16/2022 3:28 PM EDT Discharge med list, MAR and covid transfer information transmitted to [facility] via [facility] per TCC request. 7000 completed in [facility]. Facility is aware. * Care Coordination - Unknown Case Management - 06/16/2022 3:17 PM EDT Patient Choice Patient Name: RICARDO VILLALPANDO Date of : 1940 All Providers Sent Referral Name: [facility] Phone: [phone] Address: [address] [place] [address] * Care Coordination - Vika Thompson RN - 06/16/2022 2:59 PM EDT Task sent to [facility] via [facility] to complete 7000 and send it with dc paperwork and Covid results to [facility]. . * Care Coordination - MARA Garcia - 06/16/2022 2:12 PM EDT Dc transportation arranged for 5:00 to [facility] in [place]. Spoke with patients daughter via phone to discuss the dc arrangements and the spanish moss picker time. Ambulance transport form completed. * Care Coordination - Alex Delatorre - 06/16/2022 11:02 AM EDT Referral placed to SNF- [facility] via [facility] per TCC request. Await review and response regarding ability to accept. TCC notified. * Care Coordination - Vika Thompson RN - 06/16/2022 10:54 AM EDT Images from the original note were not included. Care Management Progress Note Secure message from Dr. Morton patient is ready for SNF placement. Daughter, Margarita, called and gave choice of [facility] in [place]. Task sent to [facility] via [facility] place referral to above. Will watch for [...] Vika Thompson RN 06/15/2022 8:02 AM 06/16/2022 Alisson Morton DO 06/13/2022 4:03 PM 06/16/2022 Alisson Morton DO 06/13/2022 4:02 PM 06/16/2022 Eric [...] Vika Thompson RN 06/15/2022 8:02 AM 06/16/2022 Alisson Morton DO 06/13/2022 4:03 PM 06/16/2022 Alisson Morton DO 06/13/2022 4:02 PM 06/16/2022 Eric [...] PM EDT Patient is currently active with [facility]. The patients current certification period will on 07/31/2022. The patient is currently receiving PT/OT/ST services through the agency. [employer] to continue to follow. Placed in care port and sparc * Care Coordination - Josey Mckeon RN - 06/13/2022 4:28 PM EDT Care Managment Initial Assessment Date: 06/13/2022 Patient Name: Ricardo Villalpando : 1940 Patient Information Source of Information: Patient, Patient Film Tests Checker Name/Contact Information: MARGARITA CORNELL [phone] DAUGHTER AND DAUGHTER YAZ DAVIS [phone] Cognition/Language: WFL - Within Functional Limits Permission given to speak with patient support representative/caregiver as indicated: Yes Confirmation of Payer with patient/family: Yes Payer Name: MMO [place]: No Confirmation of Primary Care Physician: Confirmed PCP Name: DR. MORTON Seen in last 2 years?: Yes Primary Caregiver: Family If assistance needed, confirmed caregiver ready, willing and able to care for patient at discharge:Yes Confirmed with: AKI CATALAN Living Arrangements Current Residence: ([place]) Number of Floors 1 Number of Entry Steps: 2 Bed/Bath Levels: Both first floor Facility: Facility Name: NA Plan to Return: Yes Lives with: Alone Support Systems: Children, Family members, Home care staff, Comments (Other) ([facility] [place]) Activities of Daily Living Ambulation: Independent Bathing/Dressing: Independent Elimination/Continence/Toileting: Independent Feeding: Independent Who Assists with Activities of Daily Living: NA Instrumental Activities of Daily Living Prescription Coverage: Yes Pharmacy Used: [facility] Medication Management: Prescription pick-up Who assists with medication securing and setup?: DAUGHTER SECURES AND SETS UP MEDS Transportation/Shopping: Assistance Provider Transportation/Shopping Assistance Provider Name: DAUGHTER OR [facility] Transportation Mode: Car, Senior/disability transport service Needs Assistance with Transportation at Discharge: No (DAUGHTER) Meal Preparation: Assistance Provider Meal Prep Assistance Provider Name: DAUGHTER Laundry/Cleaning: Assistance Provider Laundry/Cleaning Assistance Provider Name: DAUGHTER Finances/Bill Paying: Assistance Provider Finances/Bill Payer Assistance Provider Name: DAUGHTER Communication: Independent Types of Care Services/Equipment Utilized Care Services: Skilled Home Health Services Care Services Provider Name: UNSURE IF THROUGH [employer] OR [employer] Dialysis Type: NA Durable Medical Equipment: Walker, [...] status from home with anemia. Admitted to [facility]. Admissions orders are pending. Discharge preparation checklist reviewed with patient and her daughter Margarita. Patient lives [facility] [place] to her daughter and son in law. Is active with the [facility] M-F [phone]. Her daughter states she has occupational therapy that was seeing her at [facility] and was going to start with ST for swallowing. clinical liaison [facility] and is following. Daughter uncertain if through [employer] or [employer]. Daughter assists patient with all household tasks and patient is independent in her adls. Does not anticipate any needs upon discharge and tentative discharge plan is home with resumption of previous services when medically stable. Will likely need pt/ot chichoals to assist with dc planning needs. .. Josey Mckeon RN documented in this [facility]05-09-2023 Note* Care Coordination - Unknown Case Management - 06/16/2022 3:17 PM EDT Patient Choice Patient Name: RICARDO VILLALPANDO Date of : 1940 All Providers Sent Referral Name: [facility] Phone: [phone] Address: [address] [place] [address] [facility] NorthKfibnc22-19-9576 Note* Care Coordination - Unknown Case Management - 06/16/2022 3:17 PM EDT Patient Choice Patient Name: RICARDO VILLALPANDO Date of : 1940 All Providers Sent Referral Name: [facility] Phone: [phone] Address: [address] [place] [address] [facility] NorthGzeker81-51-9545 Note* Care Coordination - Vika Thompson RN - 06/16/2022 2:59 PM EDT Task sent to [facility] via [employer] to complete 7000 and send it with dc paperwork and Covid results to [facility]. . [facility] NorthBsjvrb60-46-0262 Note* Care Coordination - Vika Thompson RN - 06/16/2022 2:59 PM EDT Task sent to [facility] via [facility] to complete 7000 and send it with dc paperwork and Covid results to [facility]. . [facility] NorthSfirtc17-65-9255 Note* Care Coordination - MARA Garcia - 06/16/2022 2:12 PM EDT Dc transportation arranged for 5:00 to [facility] in [place]. Spoke with patients daughter via phone to discuss the dc arrangements and the spanish moss picker time. Ambulance transport form completed. [facility] NorthBioenu64-23-9826 Note* Care Coordination - MARA Garcia - 06/16/2022 2:12 PM EDT Dc transportation arranged for 5:00 to [facility] in [place]. Spoke with patients daughter via phone to discuss the dc arrangements and the spanish moss picker time. Ambulance transport form completed. [facility] NorthHkwsrp72-45-7368 History of Present illness Narrative* ASHLY Castaneda - 06/16/2022 2:08 PM EDT Occupational Therapy Facility/Department: [facility] 1E Occupational Therapy Treatment NAME: Ricardo Villalpando : 1940 Date of Service: 06/16/2022 Discharge Recommendations: Subacute/Long-Term Facility, Continue to assess pending progress (vs [facility] with 24 hr SUP) Assessment REQUIRES OT [...] obtain overall health wellness. Rec SNF or [facility] with 24/7 assist iffamily able to provide. [...] short term memory, Decreased long term care pharmacist memory Safety Judgement: Decreased awareness of need [...] Minutes (1 ADL) VITA Castaneda/Saul * Antonio Jimenez PT - 06/16/2022 11:26 AM EDT Physical Therapy Facility/Department: [facility] Physical Therapy Daily Treatment Note NAME: Ricardo Villalpando : 1940 Date of Service: 06/16/2022 Discharge Recommendations: Subacute/Long-Term Facility, Continue to assess pending progress (vs [facility] with 24 hr SUP) PT Equipment Recommendations [...] recent events, Decreased short term memory, Decreased assisted memory Safety Judgement: Decreased awareness of need [...] of Gait 1: No LOB, shuffling, slow rosa Quality of Gait Comment 1: Pt ambulate with FWW and CGA. She demo short shuffling gait with no LOB,require increased assist with walker management, safety and obstacle negotiation. She demo decreased rosa and step length Distance (ft) 1: ~20 [...] Inpatient Mobility Raw Score: 16 Mobility Inpatient [facility] G-Code Modifier: CK Goals Encounter Problems Encounter [...] off, please call with any questions. * Alisson Morton DO - 06/15/2022 9:20 AM EDT [...] Date - 1-2 d - Location - Skilled Facility - Pending the following - ALISSON MORTON DO 06/15/22 9:20 AM * Elvie Skelton - 06/15/2022 8:26 AM EDT Nutrition rescreen completed. Patient assigned a level 1. * Franklin Aviles, PT - 06/14/2022 3:11 PM EDT Physical Therapy Facility/Department: [address] Physical Therapy Initial Evaluation NAME: Ricardo Villalpando : 1940 Date of Service: 06/14/2022 Discharge Recommendations: Subacute/Long-Term Facility PT Equipment Recommendations Equipment Needed: No [...] short term memory, Decreased long term care pharmacist memory Safety Judgement: Decreased awareness of need [...] Device: rolling walker Transfer Assistance: Independent Active Clinical Field Specialist: No Patient's Clinical Field Specialist Info: Per pt report her daughter drives [...] 1: reciprocal stepping, equal step length, slow rosa Quality of Gait Comment 1: mild forward [...] Inpatient Mobility Raw Score: 17 Mobility Inpatient [facility] G-Code Modifier: CK Goals Encounter Problems Encounter [...] 06/14/2022 1:51 PM EDT Occupational Therapy Facility/Department: [address] Occupational Therapy Initial Evaluation NAME: Ricardo FARR: 1940 Date of Service: 06/14/2022 Discharge Recommendations: Subacute/Long-Term Facility OT Equipment Recommendations Equipment Needed: No [...] recent events, Decreased short term memory, Decreased assisted memory Safety Judgement: Decreased awareness of need [...] Device: rolling walker Transfer Assistance: Independent Active Clinical Field Specialist: No Patient's Clinical Field Specialist Info: Per pt report her daughter drives [...] cu es for hand hygiene at the [facility] to bring FWW with her. Pt required [...] Daily Activity Raw Score: 18 ADL Inpatient [facility] G-Code Modifier: CK Goals Encounter Problems Encounter [...] therapist. Radha Bernal OT documented in this [facility]05-09-2023 Note* Care Coordination - Alex Delatorre - 06/16/2022 11:02 AM EDT [facility]. Await review and response regarding ability to accept. TCC notified. [facility] NorthDiyvzx41-96-9619 Note* Care Coordination - Alex Delatorre - 06/16/2022 11:02 AM EDT Ref[facility] to [facility]- [facility]. Await review and response regarding ability to accept. TCC notified. [facility] NorthYvylvo84-61-4145 Note* Care Coordination - Vika Thompson RN - 06/16/2022 10:54 AM EDT Images from the original note were not included. Care Management Progress Note Secure message from Dr. Morton patient is ready for SNF placement. Daughter, Margarita, called and gave choice of [facility] in [place]. Task sent to [facility] via [facility] place referral to above. Will watch for [...] Vika Thompson RN 06/15/2022 8:02 AM 06/16/2022 Alisson Morton DO 06/13/2022 4:03 PM 06/16/2022 Alisson Morton DO 06/13/2022 4:02 PM 06/16/2022 Eric Cintron MD 06/13/2022 3:32 PM Length of Stay (Days): 3 GMLOS: 2.7 [facility] NorthZjmqbj70-75-3888 Note* Care Coordination - Vika Thompson RN - 06/16/2022 10:54 AM EDT Images from the original note were not included. Care Management Progress Note Secure message from Dr. Morton patient is ready for SNF placement. Daughter, Margarita, called and gave choice of [facility] in [place]. Task sent to [facility] via [facility] referral to above. Will watch for [...] Vika Thompson RN 06/15/2022 8:02 AM 06/16/2022 Alisson Morton DO 06/13/2022 4:03 PM 06/16/2022 Alisson Morton DO 06/13/2022 4:02 PM 06/16/2022 Eric Cintron MD 06/13/2022 3:32 PM Length of Stay (Days): 3 GMLOS: 2.7 [facility] NorthPtzslg57-72-2202 Nurse Note* Fiordaliza Del Castillo RN - 06/16/2022 6:04 AM EDT This nurse attempted to call both of the patients' daughters at this time to obtain a breakfast order for the patient. Both numbers went straight to voicemail. [facility] NorthAilqyo00-46-1387 Nurse Note* Fiordaliza Del Castillo RN - [...] and pillowed positioning. ] documented in this encounterSShelby Memorial HospitalYpzhbr55-52-2675 Nurse Note* Fiordaliza Del Castillo RN - 06/16/2022 5:45 AM EDT This RN and Esme HEWITT performed a complete bed bath with hair washing and skin care at this time. All new linens including gown, body bathed, hair washed, lotion applied, barrier cream applied, incontinence brief, and pillowed positioning. ] T [facility] NorthEuyxza97-01-7580 Plan of care note* Care Plan - [...] integrity is maintained or improved Outcome: Progressing T [facility] NorthUsozks95-77-0468 Note* Care Coordination - Vika Thompson RN [...] Vika Thompson RN 06/15/2022 8:02 AM 06/16/2022 Alisson Morton, DO 06/13/2022 4:03 PM 06/16/2022 Alisson Morton, DO 06/13/2022 4:02 PM 06/16/2022 Eric Cintron MD 06/13/2022 3:32 PM Length of Stay (Days): 2 GMLOS: 2.7 [facility] Mvwhtf88-80-9384 Note* Care Coordination - Vika Thompson RN [...] Vika Thompson RN 06/15/2022 8:02 AM 06/16/2022 Alisson Morton, DO 06/13/2022 4:03 PM 06/16/2022 Alisson Morton, DO 06/13/2022 4:02 PM 06/16/2022 Eric Cintron MD 06/13/2022 3:32 PM Length of Stay (Days): 2 GMLOS: 2.7 [facility] NorthFhoisx47-52-1486 Plan of care note* Care Plan - [...] increase mobility. [facility] NorthNbkhwj62-53-7076 Consult note* Jersey Rollins MD - 06/14/2022 1:43 PM EDTAssociated Order(s): Inpatient consult to Gastroenterology Images from the original note were not included. GI CONSULTATION Patient: Ricardo Villalpando : 1940 Primary Care Physician: [facility] Inpatient consult to Gastroenterology Consult performed by: Jersey Rollins MD Consult ordered by: Alisson Morton DO CHIEF COMPLAINT: elevated LFT's/anemia HISTORY [...] 1989 UPPER GASTROINTESTINAL ENDOSCOPY 08/08/2018 Dr Carroll [facility] FAMILY HISTORY: Family History Problem Relation [...] swallow.. 02/27/22 02/27/23 Gin Finn APRN - EXTERIOR INTERIOR SPECIALIST Lancets (OneTouch Delica) lancets 30G TEST SUGAR [...] IV contrast Result Date: 06/13/2022 Patient Name: RICARDO VILLALPANDO : 1940 Date/Time: 06/13/2022 15:08 Procedure: [...] 2 views Result Date: 06/13/2022 Patient Name: RICARDO VILLALPANDO : 1940 Date/Time: 06/13/2022 15:21 Procedure: [...] Hgb closely [facility] NorthLtpaqj12-87-5237 Consult note* Jersey Rollins MD - 06/14/2022 1:43 PM EDTAssociated Order(s): Inpatient consult to Gastroenterology Images from the original note were not included. GI CONSULTATION Patient: Ricardo Villalpando : 1940 Primary Care Physician: [facility] Inpatient consult to Gastroenterology Consult performed by: Jersey Rollins MD Consult ordered by: Alisson Morton DO CHIEF COMPLAINT: elevated LFT's/anemia HISTORY [...] with dilation of esophageal stricture with TTS 1012. Biopsies positive for EOE. Unsure when last [...] 1989 UPPER GASTROINTESTINAL ENDOSCOPY 08/08/2018 Dr Carroll [facility] FAMILY HISTORY: Family History Problem Relation [...] Do not swallow.. 02/27/22 02/27/23 Gin Finn, WIND FIELD MANAGER - EXTERIOR INTERIOR SPECIALIST Lancets (OneTouch Delica) lancets 30G TEST SUGAR [...] IV contrast Result Date: 06/13/2022 Patient Name: RICARDO VILLALPANDO : 1940 Date/Time: 06/13/2022 15:08 Procedure: [...] 2 views Result Date: 06/13/2022 Patient Name: RICARDO VILLALPANDO : 1940 Date/Time: 06/13/2022 15:21 Procedure: [...] to monitor Hgb closely documented in this [facility]05-07-2023 History and physical note* Alisson Morton DO - 06/14/2022 10:15 AM EDT Department of Family Medicine Attending History and Physical CHIEF COMPLAINT: ams LEG SWELLING Reason for Admission: same History Obtained From: patient and family History of Present Illness Ricardo Villalpando is a 81 y.o. female who [...] Bilateral cataract THROAT SURGERY 2014 TUBAL LIGATION 1988 U[facility] Medications Prior to Admission: Medications Prior [...] infarction) (HCC) Leukocytosis Coronary artery disease involving false pass coronary artery of false pass heart without angina pectoris Esophageal obstruction Dysphagia Dementia (HCC) Anemia AMS Elevated lfts Anemia DM 2 HTN HPL Plan Admit to [facility] tele Consult GI Pt/ot eval Monitor labs ALISSON MORTON DO 06/14/22 10:15 AM [facility] NorthPeqxfq93-57-7959 History and physical note* Alisson Morton DO - 06/14/2022 10:15 AM EDT Department of Family Medicine Attending History and Physical CHIEF COMPLAINT: ams LEG SWELLING Reason for Admission: same History Obtained From: patient and family History of Present Illness Ricardo Villalpando is a 81 y.o. female who [...] 1989 UPPER GASTROINTESTINAL ENDOSCOPY 08/08/2018 Dr Carroll [facility] Medications Prior to Admission: Medications Prior [...] Do not swallow.. 12 g 1 Lancets (Scribzuch Delica) lancets 30G TEST SUGAR ONCE A [...] capsule Take 1 capsule by mouth daily. dloHaiti Ultra test strip TEST SUGAR ONCE A [...] infarction) (HCC) Leukocytosis Coronary artery disease involving false pass coronary artery of false pass heart without angina pectoris Esophageal obstruction Dysphagia Dementia (HCC) Anemia AMS Elevated lfts Anemia DM 2 HTN HPL Plan Admit to med tele Consult GI Pt/ot eval Monitor labs ALISSON MORTON DO 06/14/22 10:15 AM documented in this [facility]05-06-2023 Hospital Discharge instructions* Discharge Instr - Other Orders* Estelle Mitchell LPN - 06/13/2022 5:59 PM EDT Discharging to Facility/ Agency Name: [facility] Address: [address] [place] [address] * Discharge Instr - NAOMIE* Nicole Boles RN - 06/16/2022 1:18 PM EDT Continuity of Care Form Patient Name: Ricardo Villalpando : 1940 Admit date: 06/13/2022 Discharge date: 06/16/22 Code Status Order: Full Code Advance Directives: Y Admitting Physician: Alisson Morton DO PCP: ALISSON MORTON DO Discharging Nurse: lily Discharging Hospital Unit/Room#: B2-248/B2-248 B Discharging Unit Emergency Contact: Extended Emergency Contact Information Primary Emergency Contact: Margarita [place] Relation: Child Secondary Emergency Contact: Yaz Davis [employer] Relation: Child Past Surgical History: Past Surgical History: Procedure Laterality Date CHOLECYSTECTOMY 03/2019 COLONOSCOPY COLONOSCOPY 03/07/2019 stent removal COLONOSCOPY 09/21/2018 ERCP (HISTORICAL) 02/15/2019 EYE SURGERY Bilateral cataract THROAT SURGERY 2014 TUBAL LIGATION 1989 UPPER GASTROINTESTINAL ENDOSCOPY 08/08/2018 Dr Carroll [facility] Immunization History: Immunization History Administered Date(s) [...] Malabsorption of iron Paroxysmal atrial fibrillation (CMS/HCC) ([facility]) Acute blood loss anemia Overview Signed 11/23/2021 3:28 PM by Interface, Incoming Problems- [facility] Conversion ?GIB Abdominal pain STEMI (ST elevation myocardial infarction) ([facility]) Leukocytosis Coronary artery disease involving false pass coronary artery of false pass heart without angina pectoris Isolation/Infection: No active [...] assistance Toileting Minimal assistance Feeding Minimal assistance Inspector Timers Minimal assistance Med Delivery yes Wound Care [...] Score: @READMISSIONRISKDETAILS@ Discharging to Facility/ Agency Name: [facility] Address: [address] [place] [address] Fax: Dialysis Facility (if applicable) Name: Address: Dialysis Schedule: Phone: Fax: First Breaker Feeder/Tank Pumper signature: ICIAN SECTION Prognosis: fair Condition at Discharge: stable Rehab Potential (if transferring to Rehab): fair Recommended Labs or Other Treatments After Discharge: none Physician Certification: I certify the above information and transfer of Ricardo Villalpando is necessary for the continuing treatment of the diagnosis listed and that she requires alf facility for less than 30 days. Update Admission H&P: No change in H&P PHYSICIAN SIGNATURE: documented in this encounterSShelby Memorial HospitalJiqlwb94-04-4747 Note* Home Care - Estelle Mitchell LPN - 06/13/2022 5:56 PM EDT [facility] The patients current certification period will on 07/31/2022. The patient is currently receiving PT/OT/ST services through the agency. [employer] to continue to follow. [facility] NorthTfwrzs74-40-7034 Note* Home Care - Estelle Mitchell LPN - 06/13/2022 5:56 PM EDT [facility] The patients current certification period will on 07/31/2022. The patient is currently receiving PT/OT/ST services through the agency. [employer] to continue to follow. Placed in care port and sparc [facility] NorthFrkopl64-66-2794 Note* Care Coordination - Josey Mckeon RN - 06/13/2022 4:28 PM EDT Care Managment Initial Assessment Date: 06/13/2022 Patient Name: Ricardo Villalpando : 1940 Patient Information Source of Information: Patient, Patient Film Tests Checker Name/Contact Information: MARGARITA CORNELL [phone] DAUGHTER AND DAUGHTER YAZ DAVIS [phone] Cognition/Language: WFL - Within Functional Limits Permission given to speak with patient support representative/caregiver as indicated: Yes Confirmation of Payer with patient/family: Yes Payer Name: MMO [place]: No Confirmation of Primary Care Physician: Confirmed PCP Name: DR. MORTON Seen in last 2 years?: Yes Primary Caregiver: Family If assistance needed, confirmed caregiver ready, willing and able to care for patient at discharge:Yes Confirmed with: AKI CATALAN Living Arrangements Current Residence: ([facility]) Number of Floors 1 Number of Entry Steps: 2 Bed/Bath Levels: Both first floor Facility: Facility Name: [facility] Plan to Return: Yes Lives with: Alone Support Systems: Children, Family members, Home care staff, Comments (Other) ([facility] [place]) Activities of Daily Living Ambulation: Independent Bathing/Dressing: Independent Elimination/Continence/Toileting: Independent Feeding: Independent Who Assists with Activities of Daily Living: NA Instrumental Activities of Daily Living Prescription Coverage: Yes Pharmacy Used: [facility] Medication Management: Prescription pick-up Who assists with medication securing and setup?: DAUGHTER SECURES AND SETS UP MEDS Transportation/Shopping: Assistance Provider Transportation/Shopping Assistance Provider Name: AKI WOLF Transportation Mode: Car, Senior/disability transport service Needs Assistance with Transportation at Discharge: No (DAUGHTER) Meal Preparation: Assistance Provider Meal Prep Assistance Provider Name: DAUGHTER Laundry/Cleaning: Assistance Provider Laundry/Cleaning Assistance Provider Name: DAUGHTER Finances/Bill Paying: Assistance Provider Finances/Bill Payer Assistance Provider Name: AKI Communication: Independent Types of Care Services/Equipment Utilized Care Services: Skilled Home Health Services Care Services Provider Name: UNSURE IF THROUGH [employer] OR [employer] Dialysis Type: NA Durable Medical Equipment: Walker, [...] status from home with anemia. Admitted to [facility]. Admissions orders are pending. Discharge preparation checklist reviewed with patient and her daughter Margarita. Patient lives in trailer [place] to her daughter and son in law. Is active with the [employer] [facility] M-F 730-330pm. Her daughter states she has occupational therapy that was seeing her at [facility] and was going to start with ST for swallowing. clinical liaison [facility] and is following. Daughter uncertain if through [facility] or [employer]. Daughter assists patient with all household tasks and patient is independent in her adls. Does not anticipate any needs upon discharge and tentative discharge plan is home with resumption of previous services when medically stable. Will likely need pt/ot chichoals to assist with dc planning needs. .. Josey Mckeon RN [facility] [id number] Note* Care Coordination - Josey Mckeon RN - 06/13/2022 4:28 PM EDT Care Managment Initial Assessment Date: 06/13/2022 Patient Name: Ricardo Villalpando : 1940 Patient Information Source of Information: Patient, Patient Film Tests Checker Name/Contact Information: MARGARITA CORNELL [phone] DAUGHTER AND DAUGHTER YAZ DAVIS [phone] Cognition/Language: WFL - Within Functional Limits Permission given to speak with patient support representative/caregiver as indicated: Yes Confirmation of Payer with patient/family: Yes Payer Name: MMO : No Confirmation of Primary Care Physician: Confirmed PCP Name: DR. MORTON Seen in last 2 years?: Yes Primary Caregiver: Family If assistance needed, confirmed caregiver ready, willing and able to care for patient at discharge:Yes Confirmed with: AKI CATALAN Living Arrangements Current Residence: ([facility]) Number of Floors 1 Number of Entry Steps: 2 Bed/Bath Levels: Both first floor Facility: Facility Name: [facility] Plan to Return: Yes Lives with: Alone Support Systems: Children, Family members, Home care staff, Comments (Other) ([facility]) Activities of Daily Living Ambulation: Independent Bathing/Dressing: Independent Elimination/Continence/Toileting: Independent Feeding: Independent Who Assists with Activities of Daily Living: NA Instrumental Activities of Daily Living Prescription Coverage: Yes Pharmacy Used: [facility] Medication Management: Prescription pick-up Who assists with medication securing and setup?: DAUGHTER SECURES AND SETS UP MEDS Transportation/Shopping: Assistance Provider Transportation/Shopping Assistance Provider Name: DAUGHTER OR [facility] Transportation Mode: Car, Senior/disability transport service Needs Assistance with Transportation at Discharge: No (DAUGHTER) Meal Preparation: Assistance Provider Meal Prep Assistance Provider Name: DAUGHTER Laundry/Cleaning: Assistance Provider Laundry/Cleaning Assistance Provider Name: DAUGHTER Finances/Bill Paying: Assistance Provider Finances/Bill Payer Assistance Provider Name: DAUGHTER Communication: Independent Types of Care Services/Equipment Utilized Care Services: Skilled Home Health Services Care Services Provider Name: UNSURE IF [facility]OUGH [facility] Dialysis Type: NA Durable Medical Equipment: Walker, [...] status from home with anemia. Ad[facility]. Admissions orders are pending. Discharge preparation checklist reviewed with patient and her daughter Margarita. Patient lives [place] [facility] [place] to her daughter and son in law. Is active with the [facility] M-F 730-330pm. Her daughter states she has occupational therapy that was seeing her at [facility] and was going to start with ST for swallowing. [facility] and is following. Daughter uncertain if through [facility] or [facility]. Daughter assists patient with all household tasks and patient is independent in her adls. Does not anticipate any needs upon discharge and tentative discharge plan is home with resumption of previous services when medically stable. Will likely need pt/ot evals to assist with dc planning needs. .. Josey Mckeon RN [facility] NorthHwrfca94-92-0267 Emergency department Note* Natalie Scott RN - 06/13/2022 3:13 PM EDT This RN clarified magnesium order with eve Moreno to give per provider. Natalie Scott RN 06/13/22 1514 [facility] NorthElvpee92-89-7304 Emergency department Note* Natalie Scott RN - [...] PM EDT EMERGENCY DEPARTMENT ENCOUNTER Pt Name: Ricardo Villalpando Birthdate 1940 Date of evaluation: 06/13/2022 CHIEF COMPLAINT Chief Complaint Patient presents with Leg Swelling HISTORY OF PRESENT ILLNESS History provided by: Patient and relative History limited by: Mental status change Ricardo Villalpando is a 81 y.o. female who [...] incidence of candidiasis. Do not swallow.. LANCETS (NacuiiTOUCH DELICA) LANCETS 30G TEST SUGAR ONCE A [...] CAPSULE Take 1 capsule by mouth daily. [employer] ULTRA TEST STRIP TEST SUGAR ONCE A [...] 03:32:32 PM Case was discussed with Dr. Alisson Morton and patient was accepted for hospitalization. [...] Pt accompanied by daughter documented in this [facility]05-06-2023 Emergency department Note* Natalie Scott RN - 06/13/2022 3:03 PM EDT Patient placed in wheelchair to use restroom, pt ambulated well independently from wheelchair to bathroom Natalie Scott RN 06/13/22 1508 [facility] [id number] Emergency department Triage note* Ashanti Michelle RN - 06/13/2022 12:04 PM EDT Pt presents from outpatient ECHO due to bilateral leg edema. +2 edema noted. Pt poor historian. Pt accompanied by daughter [facility] NorthWddqyd88-20-6513 Physician Emergency department Note* Eric Cintron MD - 06/13/2022 12:04 PM EDT EMERGENCY DEPARTMENT ENCOUNTER Pt Name: Ricardo Villalpando Birthdate 1940 Date of evaluation: 06/13/2022 CHIEF COMPLAINT Chief Complaint Patient presents with Leg Swelling HISTORY OF PRESENT ILLNESS History provided by: Patient and relative History limited by: Mental status change Ricardo Villalpando is a 81 y.o. female who [...] 03:32:32 PM Case was discussed with Dr. Alisson Morton and patient was accepted for hospitalization. [...] MD 06/13/221542 [facility] NorthZocuxt58-19-[address] Younger [facility] June 01, 2022 11:43pm Note Date/Time June 01, 2022 11: 15pm [facility] Medical Records Department [address] [place] [address] Emergency Department Summary 06/01/22 MR#: [id number] Acct: [id number] Name: RICARDO VILLALPANDO Rep #:[id number] : 1940 81 From: Xavier Younger MD PCP: Alisson Morton DO Status:REG ER Location: ED HPI History of Present Illness Chief [facility]: [facility] Medical History (Updated 06/01/22 @ 23:[address] Xavier Younger MD) Anemia Atherosclerotic heart disease of false pass coronary artery without angina pectoris Dementia Diabetes [...] [History Last Taken Unknown] clotrimazole 10 mg spohie 10 mg PO TID PRN PRN Mouth [...] (Auto) 70.1 H Lymph % (Auto) 22.3 [place] % (Auto) 5.5 Eos % (Auto) 1.1 [...] Color Urine Clarity Urine pH Ur Specific [place] Urine Protein Urine Glucose (UA) Urine Ketones Urine Occult Blood Urine Nitrite Urine Bilirubin Urine Urobilinogen Ur Leukocyte Esterase Urine RBC Urine WBC Ur Squamous Epith Cells Urine Bacteria Urine Mucus 06/01/22 21:40 WBC RBC Hgb Hct MCV MCH MCHC RDW Std Deviation RDW Coeff of Galen Plt Count MPV Immature Gran % (Auto) Neut % (Auto) Lymph % (Auto) [place] % (Auto) Eos % (Auto) Baso % (Auto) Absolute Neuts (auto) Absolute Lymphs (auto) Nucleated RBC % Sodium Potassium Chloride Carbon Dioxide Anion Gap BUN Creatinine Est GFR (MDRD) Af Amer Est GFR (MDRD) Non-Af BUN/Creatinine Ratio Glucose Calcium Total Bilirubin Direct Bilirubin AST ALT Alkaline Phosphatase Total Protein Albumin Globulin Urine Color Yellow Urine Clarity Sl. Cloudy Urine pH 5.0 Ur Specific [place] 1.015 Urine Protein 30 H Urine Glucose [...] side of the mouth Primary Care Provider: Alisson Morton Referrals: Alisson Morton, [Primary Care Provider] - 3-5 Days Disposition Disposition: Home, Self Care What to do if you have Problems For any increased pain, shortness of breath, bleeding, nausea or vomiting, chestpain, or any unexpected problems, contact your Primary Care Provider. Call [facility] ([phone]) or report to the closest Emergency Room. Call 911 if necessary. 06/01/222342 <Electronically signed by Xavier Younger MD> Cosigner Signature (if applicable): CC: Alisson Morton DO ~ Signed [facility] Work Phone: 1(350) 301-727904-05-[address] Pack [facility] May 13, 2022 3:47pm Note Date/Time May 13, 2022 3:46 pm [facility] Medical Records Department [address] [place] [address] Instructions for Home/Discharge Instructions 05/13/22 1545 MR#: [id number] Acct: [id number] Name: RICARDO VILLALPANDO Rep #:[id number] : 1940 81 From: Jovi galvez MD PCP: Alisson Morton DO Status:ADM WARD Discharge Instructions Diet [...] Attending Provider: Jovi Pack Primary Care Provider: Alisson Morton Discharge Orders/Prescriptions Prescriptions: New nystatin 100,000 [...] BY MOUTH DAILY Referrals / Follow Up: Alisson Morton DO [Primary Care Provider] - Within 1 Week FriendRoque DO [Med Staff - Active Staff] - Within 3 Months Disposition Disposition (needs filled in before D/C Order can be placed): Home, Self Care 05/13/22 9741<Electronically signed by Jovi Pack MD>Jovi Pack MD CC: Alisson Morton DO ~ Signed [facility] Work Phone: 1([phone]) 318-561504-05-[address] Pack [facility] May 13, 2022 2:10pm Note Date/Time May 13, 2022 2:10 pm [facility] Medical Records Department [address] [place] [address] Discharge Summary 05/13/22 1406 MR#: [id number] Acct: [id number] Name: RICARDO VILLALPANDO Rep #:[id number] : 1940 81 From: Jovi galvez MD PCP: Alisson Morton DO Status:ADM WARD Location: [address] Providers Date of Admission: 05/12/22 Primary Care Physician: Dr. Alisson Morton DO Consultations 05/12/22 12:48 Consult: Gastroenterology Routine Consulting Provider: [facility] Reason for Consult: Dysphagia EMERGENT Consult: [...] on Discharge: 35 Hospital Course: Per HPI: RICARDO VILLALPANDO, is a 81 F who presents to the hospital with difficulty swallowing.? This has been an ongoing issue she had a previous esophageal dilatation years ago and then had another 1 at a hospital in [place] in January 2022.? She has been having [...] % (Auto) 61.7, Lymph % (Auto) 21.4, [place] % (Auto) 11.8 H, Eos % (Auto) [...] Attending Provider: Jovi Pack Primary Care Provider: Alisson Morton Discharge Orders/Prescriptions Prescriptions: New nystatin 100,000 [...] BY MOUTH DAILY Referrals / Follow Up: Ailsson Morton DO [Primary Care Provider] - Disposition Disposition (needs filled in before D/C Order can be placed): Long-Term Facility Charges/Coding Visit Charges Inpatient E&M: 11687 Disch Hosp >30min 05/13/22 1410 <Electronically signed by Jovi Pack MD> Cosigner Signature (if applicable): CC: Dr. Jovi Pack MD; Alisson Morton DO~ Signed [facility] Work Phone: 1(458) 441-836104-05-[address] Pack [facility] May 13, 2022 1:53pm Note Date/Time May 13, 2022 1:51 pm [facility] Medical Records Department [address] [place] [address] Transfer to Extended Care MR#: [id number] Acct: [id number] Name: RIACRDO VILLALPANDO Rep #:[id number] : 1940 81 From: Jovi galvez MD PCP: Alisson Morton DO Status:ADM WARD Certification of patient admission REQUIRED AT TIME OF ADMISSION. I CERTIFY THAT POST-HOSPITAL ECF SERVICES ARE REQUIRED TO BE GIVEN ON AN IN-PATIENT BASIS BECAUSE OF THE ABOVE NAMED PATIENT'S NEED FOR RETIREMENT CARE ON A CONTINUING BASIS FOR THE CONDITION(S) FOR WHICH HE/SHE WAS RECEIVING IN-PATIENT HOSPITAL SERVICES PRIOR TO HIS/HER TRANSFER TO THE F. 05/13/22 1353<Electronically signed by Jovi Pack MD> [...] Recommendations/Changes: Continue Cardiac diet with texture/consistency per IRRIGATION LABORER/MD. Continue 120mL EPHP TID with medpass to provide supplemental energy. Discharge Plan Admission Admit Date/Time: 05/12/22 11:13 Attending Provider: Jovi Pack Primary Care Provider: Alisson Morton Discharge Orders/Prescriptions Prescriptions: New nystatin 100,000 [...] BY MOUTH DAILY Referrals / Follow Up: Alisson Morton DO [Primary Care Provider] - Disposition Disposition (needs filled in before D/C Order can be placed): Long-Term Facility 05/13/22 1353 <Electronically signed by Jovi Pack MD> Cosigner Signature (if applicable): CC: Alisson Morton DO ~ [facility] Work Phone: 1(784) 915-987804-05-[address] Pack [facility] May 13, 2022 9:17am Note Date/Time May 13, 2022 9:13 am [facility] Medical Records Department [address] [place] [address] Progress Note - Hospitalist 05/13/22909 MR#: [id number] Acct: [id number] Name: RICARDO VILLALPANDO Rep #:[id number] : 1940 81 From: Jovi galvez MD PCP: Alisson Morton DO Status:ADM WARD Location: [place] [address] Subjective Subjective Doing well, no issues overnight [...] (Auto) 70.4 H, Lymph % (Auto) 17.0 L,[place] % (Auto) 8.8, Eos % (Auto) 2.9, [...] % (Auto) 61.7, Lymph % (Auto) 21.4, [place] % (Auto) 11.8 H, Eos % (Auto) [...] DVT: SCDs Charges/Coding Visit Charges Inpatient E&M: 51064 Subs Hosp L2 05/13/22 0917 <Electronically signed by Jovi Pack MD> Cosigner Signature (if applicable): CC: ~ Signed [facility] Work Phone: 1(907) 103-240804-05-2023 Procedure [facility] 05-13-2022 [facility]04-04-2023 Consult note Author Roque Friend [facility] May 12, 2022 6:47pm Note Date/Time May 12, 2022 6:45 pm [facility] Medical Records Department [address] [place] [address] Consultation - GI 05/12/22 1844 MR#: [id number] Acct: [id number] Name: KWASIRICARDO LEES Rep #:[id number] : 1940 81 From: Roque Herrera DO PCP: Alisson Morton DO Status:ADM WARD Location: [place] OI029-6 HPI Consult Data Date of Consult: 05/12/22 HPI Narrative Reason for Consultation: Dysphagia HPI Narrative: RICARDO VILLALPANDO, is a 81 F who presents [...] swallow liquids.? Her last dilatation was in [place]. ?Imaging demonstrates a large hiatal hernia. [facility] Medical History (Updated 05/12/22 @ 18:[address] Nevarez Friend, ) Anemia Atherosclerotic heart disease of false pass coronary artery without angina pectoris Dementia Diabetes [...] (Auto) 70.4 H, Lymph % (Auto) 17.0 L,[place] % (Auto) 8.8, Eos % (Auto) 2.9, [...] of 3. Charges/Coding Visit Charges Inpatient E&M: 45953 Init Hosp L2 05/12/22 9734 <Electronically signed by Roque Herrera DO> Cosigner Signature (if applicable): CC: Alisson Morton DO~ Signed [facility] Work Phone: 1(240) 117-617804-04-[address] Benitez [facility] May 12, 2022 4:36pm Note Date/Time May 12, 2022 10:0 0am [facility] Medical Records Department [address] [facility] [place] [address] Emergency Department Summary 05/12/22 MR#: [id number] Acct: [id number] Name: RICARDO VILLALPANDO Rep #:[id number] : 1940 81 From: Zonia Benitez DO PCP: Alisson Morton DO Status:ADM WARD Location: [facility] AI422-2 HPI History of Present Illness Chief Complaint: [...] swallow liquids. Her last dilatation was in [place]. [facility] Medical History (Updated 05/12/22 @ 11:[address] Zonia Benitez DO) Anemia Atherosclerotic heart disease of false pass coronary artery without angina pectoris Dyslipidemia Gallstone [...] swallow without difficulty. I discussed case with water analyst on-call Dr. Herrera. He felt admitting the [...] 70.4 H Lymph % (Auto) 17.0 L [place] % (Auto) 8.8 Eos % (Auto) 2.9 [...] DAILY Qty: 30 0RF Primary Care Provider: Alisson Morton Referrals: Alisson Morton DO [Primary Care Provider] - Disposition Disposition: Acute Care Hospital [facility] What to do if you have Problems For any increased pain, shortness of breath, bleeding, nausea or vomiting, chestpain, or any unexpected problems, contact your Primary Care Provider. Call [facility] ([phone]) or report to the closest Emergency Room. Call 911 if necessary. 05/12/22 1636 <Electronically signed by Zonia Benitez DO> Cosigner Signature (if applicable): CC: Alisson Morton DO ~ Signed [facility] Work Phone: 1(960) 312-794904-04-2023 History and physical note Author Dr. Pack [facility] May 12, 2022 4:06pm Note Date/Time May 12, 2022 11:2 1am [facility] Medical Records Department [address] [place] [address] H&P Exam - Hospitalist 05/12/22 1115 MR#: [id number] Acct: [id number] Name: RICARDO VILLALPANDO Rep #:[id number] : 1940 81 From: Jovi galvez MD PCP: Alisson Morton DO Status:ADM WARD Location: [facility] UR907-7 HPI - General General Date of Admission: 05/12/22 HPI Narrative RICARDO VILLALPANDO, is a 81 F who presents to the hospital with difficulty swallowing. This has been an ongoing issue she had a previous esophageal dilatation years ago and then had another 1 at a hospital in [place] in January 2022. She has been having [...] discussing the case with the ED physician. [facility] Medical History (Updated 05/12/22 @ 12:41 by Lyn Minor) Anemia Atherosclerotic heart disease of false pass coronary artery without angina pectoris Dementia Diabetes [...] (Auto) 70.4 H, Lymph % (Auto) 17.0 L,[place] % (Auto) 8.8, Eos % (Auto) 2.9, [...] medications DVT: SCDs 75 minutes was spent [id number], as well as chart review and documentation anddiscussing the case with colleagues Charges/Coding Visit Charges Inpatient E&M: 73988 Init Hosp L3 05/12/22 1606 <Electronically signed by Jovi Pack MD> Cosigner Signature (if applicable): CC: Dr. Jvoi Pack MD; Alisson Morton DO~ Signed [facility] Work Phone: [phone]) 913-734601-26-2023 Telephone encounter Note* Telephone Encounter - KALYN Fulton CNP - 03/05/2022 11:40 AM EST Spoke to daughter Margarita and relayed the message. She will spanish moss picker the medication today. [facility] [id number] Miscellaneous Notes* Telephone Encounter - KALYN Fulton CNP - 03/05/2022 11:40 AM EST Spoke to daughter Margarita and relayed the message. She will spanish moss picker the medication today. * Telephone Encounter - KALYN Fulton CNP - 03/05/2022 11:32 AM EST SADI I called Donald (pharmacist) [facility] [address] [facility] [address] #[phone]. The medication (budesonide slurry) is ready for patient to spanish moss picker. It will be $40 per month. She [...] verified with verbal order by provider [facility] [address] [facility] [address] #[phone]. Pharmacist stated "compoundingpharmacist" was not in today, and will return [...] ID: [facility] retail- NOT [facility]) [phone] to request budesonide slurry d/t high cost [...] 12:55 PM EST Spoke with pt's daughter, Margarita in regards to rx instructions. Margarita stated that Flovent is "almost$400" and did not spanish moss picker. Is there an alternative rx that can [...] daughter and got her scheduled for a RADIO SCRIPT WRITER appointment on 03/13/22 at 2:40pm with Huma [...] my schedule to discuss. documented in this encounterSumma [id number] Telephone encounter Note* Telephone Encounter - KALYN Fulton CNP - 03/05/2022 11:32 AM EST SADI I called Donald (pharmacist) at [facility] [address], [facility] [address] #[phone]. The medication (budesonide slurry) is ready for patient to spanish moss picker. It will be $40 per month. She [...] back and has any questions. [facility]Nwaqpt92-03-1092 Telephone encounter Note* Telephone Encounter - Pau [...] Thank you [facility] NorthBqlcur57-43-2610 Miscellaneous Notes* Telephone Encounter - Pau Bar [...] verified with verbal order by provider into [facility] [address] [place] [address] PH#[phone]. Pharmacist stated "compoundingpharmacist" was not in today, and will return [...] ID: [facility] retail- NOT [facility]) [phone] to request budesonide slurry d/t high cost [...] 12:55 PM EST Spoke with pt's daughter, Margarita in regards to rx instructions. Margarita stated that Flovent is "almost$400" and did not spanish moss picker. Is there an alternative rx that can [...] daughter and got her scheduled for a RADIO SCRIPT WRITER appointment on 03/13/22 at 2:40pm with Huma [...] my schedule to discuss. documented in this encounterSShelby Memorial HospitalVcktsi47-74-2527 Telephone encounter Note* Telephone Encounter - KALYN Fulton CNP - 03/04/2022 12:56 PM EST Please let me know once you talk to the patient's daughter so she is confident on how the patient it to take medication. Thank you! [facility] NorthYqoaak25-16-7585 Telephone encounter Note* Telephone Encounter - Lupis Connors RN - 03/04/2022 11:55 AM EST Called in rx as written and verified with verbal order by provider into [facility] [address] [place] [address]#[phone]. Pharmacist stated "compoundingpharmacist" was not in today, and will return tomorrow. Pharmacist verified rx, pt information, andstated would return call tomorrow if any issues arise with filling script. Rx admin counseling alsorequested by pharmacist when pt picks up rx. Unable to schedule repeat EGD at this time due to schedule unavailable. [facility] NorthSmrkfq98-82-7800 Telephone encounter Note* Telephone Encounter - KALYN Fulton CNP - 03/04/2022 7:35 AM EST Please call Eric Steen (surescripts ID: [facility] retail- [facility] [phone] to request budesonide slurry d/t high cost [...] budesonide suspension. Will need repeat EGD after. [id number] Telephone encounter Note* Telephone Encounter - Lupis Connors RN - 03/03/2022 12:55 PM EST Spoke with pt's daughter, Margarita in regards to rx instructions. Margarita stated that Flovent is "almost$400" and did not spanish moss picker. Is there an alternative rx that can be prescribed for this pt? [facility] [id number] Miscellaneous Notes* Telephone Encounter - Lupis Connors RN - 03/03/2022 12:55 PM EST Spoke with pt's daughter, Margarita in regards to rx instructions. Margarita stated that Flovent is "almost$400" and did not spanish moss picker. Is there an alternative rx that can [...] daughter and got her scheduled for a RADIO SCRIPT WRITER appointment on 03/13/22 at 2:40pm with Huma [...] my schedule to discuss. documented in this [facility]01-23-2023 Telephone encounter Note* Telephone Encounter - Keisha Weiss - 03/02/2022 1:05 PM EST Called pt and left a VM requesting a callback to go over providers recommendations. Callback numberprovided. [facility] NorthStttrn77-63-1467 Miscellaneous Notes* Telephone Encounter - Keisha Weiss [...] daughter and got her scheduled for a RADIO SCRIPT WRITER appointment on 03/13/22 at 2:40pm with Huma [...] my schedule to discuss. documented in this encounterSShelby Memorial [id number] Telephone encounter Note* Telephone Encounter - KALYN Fulton CNP - 03/02/2022 10:20 AM EST Did anyone speak with her about the recommendations? [facility]jabca[facility]91-4359 Telephone encounter Note* Telephone Encounter - Keisha Weiss - 03/02/2022 8:22 AM EST Called pt and spoke to her daughter and got her scheduled for a RADIO SCRIPT WRITER appointment on 03/13/22 at 2:40pm with Huma Meyers. [facility]Taofwa06-76-2534 Telephone encounter Note* Telephone Encounter - Lupis Connors RN - 02/27/2022 1:49 PM EST Attempted contact with pt in regards to providers' recommendations. No answer. VM left. [facility] NorthQvvfdg84-13-4185 Telephone encounter Note* Telephone Encounter - KALYN [...] to discuss. [facility]Kichvs36-34-9401 Note* Op Note - Mykel Powell MD - 02/23/2022 7:43 AM EST [facility] Patient Name: Ricardo Villalpando Procedure Date: 02/23/2022 7:43 AM Gender: Female Date of : 1940 Age: 81 Admit Type: Outpatient Note Status: Finalized Endoscopist: MYKEL Powell MD Procedure: Upper GI endoscopy Indications: [...] by the physician, the nurse and the frame stripper in the pre-procedure area in the procedure [...] loss: None. Procedure Code(s): --- Professional --- 83319, Esophagogastroduodenoscopy, flexible, transoral; with transendoscopic balloon dilation of esophagus (less than 30 mm diameter) 54324, 59, Esophagogastroduodenoscopy, flexible, transoral; with biopsy, single or multiple --- Technical --- 86285, Esophagogastroduodenoscopy, flexible, transoral; with transendoscopic balloon dilation of esophagus (less than 30 mm diameter) 67202, 59, Esophagogastroduodenoscopy, flexible, transoral; with biopsy, single or multiple Diagnosis Code(s): --- Professional --- K22.2, Esophageal obstruction K44.9, Diaphragmatic hernia without obstruction or gangrene R13.10, Dysphagia, unspecified --- Technical --- K22.2, Esophageal obstruction K44.9, Diaphragmatic hernia without obstruction or gangrene R13.10, Dysphagia, unspecified CPT copyright 2020 [employer]. All rights reserved. The codes documented in this report are preliminary and upon plate conditioner review may be revised to meet current compliance requirements. Attending Participation: I personally performed the entire procedure. MYKEL Powell MD 02/23/2022 8:09:15 AM This report has been signed electronically. Number of Addenda: 0 Note Initiated On: 02/23/2022 7:43 AM [id number] Note* Op Note - Mykel Powell MD - 02/23/2022 7:43 AM EST [facility] Name: Ricardo Villalpando Procedure Date: 02/23/2022 7:43 AM Gender: Female Date of : 1940 Age: 81 Admit Type: Outpatient Note Status: Finalized Endoscopist: MYKEL Powell MD Procedure: Upper GI endoscopy Indications: [...] by the physician, the nurse and the frame stripper in the pre-procedure area in the procedure [...] loss: None. Procedure Code(s): --- Professional --- 90127, Esophagogastroduodenoscopy, flexible, transoral; with transendoscopic balloon dilation of esophagus (less than 30 mm diameter) 82959, 59, Esophagogastroduodenoscopy, flexible, transoral; with biopsy, single or multiple --- Technical --- 99771, Esophagogastroduodenoscopy, flexible, transoral; with transendoscopic balloon dilation of esophagus (less than 30 mm diameter) 77410, 59, Esophagogastroduodenoscopy, flexible, transoral; with biopsy, single or multiple Diagnosis Code(s): --- Professional --- K22.2, Esophageal obstruction K44.9, Diaphragmatic hernia without obstruction or gangrene R13.10, Dysphagia, unspecified --- Technical --- K22.2, Esophageal obstruction K44.9, Diaphragmatic hernia without obstruction or gangrene R13.10, Dysphagia, unspecified CPT copyright 2020 [employer]. All rights reserved. The codes documented in this report are preliminary and upon plate conditioner review may be revised to meet current compliance requirements. Attending Participation: I personally performed the entire procedure. MYKEL Powell MD 02/23/2022 8:09:15 AM This report has been signed electronically. Number of Addenda: 0 Note Initiated On: 02/23/2022 7:43 AM [facility] NorthMyvvqj19-32-2850 Miscellaneous Notes* Op Note - Mykel Powell MD - 02/23/2022 7:43 AM EST [facility] Name: Ricardo Villalpando Procedure Date: 02/23/2022 7:43 AM Gender: Female Date of : 1940 Age: 81 Admit Type: Outpatient Note Status: Finalized Endoscopist: MYKEL Powell MD Procedure: Upper GI endoscopy Indications: [...] by the physician, the nurse and the frame stripper in the pre-procedure area in the procedure [...] loss: None. Procedure Code(s): --- Professional --- 02241, Esophagogastroduodenoscopy, flexible, transoral; with transendoscopic balloon dilation of esophagus (less than 30 mm diameter) 61790, 59, Esophagogastroduodenoscopy, flexible, transoral; with biopsy, single or multiple --- Technical --- 54191, Esophagogastroduodenoscopy, flexible, transoral; with transendoscopic balloon dilation of esophagus (less than 30 mm diameter) 37813, 59, Esophagogastroduodenoscopy, flexible, transoral; with biopsy, single or multiple Diagnosis Code(s): --- Professional --- K22.2, Esophageal obstruction K44.9, Diaphragmatic hernia without obstruction or gangrene R13.10, Dysphagia, unspecified --- Technical --- K22.2, Esophageal obstruction K44.9, Diaphragmatic hernia without obstruction or gangrene R13.10, Dysphagia, unspecified CPT copyright 2020 [employer]. All rights reserved. The codes documented in this report are preliminary and upon plate conditioner review may be revised to meet current compliance requirements. Attending Participation: I personally performed the entire procedure. MYKEL Powell MD 02/23/2022 8:09:15 AM This report has been signed electronically. Number of Addenda: 0 Note Initiated On: 02/23/2022 7:43 AM documented in this [facility]01-16-2023 History and physical note* Mykel Powell MD - 02/23/2022 7:42 AM EST GASTROENTEROLOGY PHYSICIAN PRE PROCEDURE NOTE HPI: Ricardo Villalpando is a 81 y.o. female who [...] Take 4 mg by mouth daily. Lancets (dloHaiti DelElephant.is) lancets 30G TEST SUGAR ONCE A DAY [...] capsule Take 1 capsule by mouth daily. dloHaiti Ultra test strip TEST SUGAR ONCE A [...] proceed with planned procedure. Andre CHRISTIANSEN Gastroenterology [facility] Phone: 1(127) 621-288001-16-2023 History and physical note* Mykel Powell MD - 02/23/2022 7:42 AM EST GASTROENTEROLOGY PHYSICIAN PRE PROCEDURE NOTE HPI: Ricardo Villalpando is a 81 y.o. female who [...] Take 4 mg by mouth daily. Lancets (Scribzuch Delica) lancets 30G TEST SUGAR ONCE A [...] capsule Take 1 capsule by mouth daily. dloHaiti Ultra test strip TEST SUGAR ONCE A [...] procedure. Andre CHRISTIANSEN Gastroenterology documented in this [facility]04-27-2021 Hospital Discharge instructions* Instructions* Salzgeber, Regina E., RN - 06/04/2020 * Attachments The following attachments cannot be sent through Care Everywhere. * Thyroid: Biopsy: Fine-Needle: Post-op (Guatemalan) documented in this encounterSUMMA Work Phone: 1(823) 902-223901-11-2020 Hospital course Narrative* Gustavo Muniz MD - 02/18/2019 12:17 PM EST Discharge Summary Ricardo Villalpando : 1940 ADMIT DATE: 02/11/2019 DISCHARGE DATE: 02/18/2019 PRIMARY CARE PHYSICIAN: ALISSON MORTON DO VISIT STATUS: Admission CODE STATUS: [...] weeks for removal of stents DISCHARGE MEDICATIONS: Ricardo Villalpando Home Medication Instructions JENNIFER:[id number] Printed on:02/18/19 6515 Medication Information aspirin 81 MG chewable tablet [...] Complexity: follow up within 7-14 calendar days (87407) [] Severe Complexity: follow up within 7 calendar days (28079) FOLLOW UP TESTING, PENDING RESULTS OR REFERRALS AT TRANSITIONAL CARE VISIT: [] Yes [] No PENDING STUDIES: No DISPOSITION: Home FACILITY/HOME CARE AGENCY NAME: Follow up with Follow-up With Details Why Contact Info Alisson Morton, In [address] [facility] [address] Osmar Anderson MD In [address] [facility] [facility] [address] Lisa Smiley MD In [address] [facility] [address] [facility] [address] INSTRUCTIONS TO MA/SW: Please call patient on [...] frame. DISCHARGE TIME: > 30 minutes SIGNED: Gustavo Muniz MD 02/18/2019, 12:17 PM documented in this [facility] Work Phone: 1(355) 139-686301-11-2020 History of Present illness Narrative* Sharmila Lr [...] 97% BMI 22.46 kg/m INTAKE/OUTPUT: Date 02/18/19 - 02/18/19 2359 Shift 7703-0746 6260-5100 4002-9052 24 Hour Total INTAKE Shift Total(mL/kg) OUTPUT [...] 0.81 GLUCOSE 182* 125* Hepatic: Recent Labs 02/16/1910002/17/19 0042 AST 100* 62* ALT 81* 60 [...] 02/17/2019 3:22 PM EST Physical Therapy Facility/Department: [facility] PT REEVALUATION NAME: Ricardo Villalpando : 1940 Date of Service: 02/17/2019 [...] the kraft with PT. General Comment Comments: "I can't make a bowel movement, so I am waiting on that. I have no problem passing gas." Pain Screening Patient Currently in Pain: Yes [...] Walker Assistance: Modified Independent Gait Deviations: Slow Rosa;Decreased step length Distance: 100' x 2 Stairs/Curb [...] (low eval, gait) Iesha Loya PT * Gustavo Muniz MD - 02/17/2019 9:03 AM EST Hospitalist Progress Note 02/17/2019 9:03 AM [phone]: Please page me for patient care issues. [phone]: Please page [facility] night Hospitalist for any issues. Subjective: Admit Date: 02/11/2019 PCP: ALISSON MORTON DO Room#: [id number] Interval History: Patient seen and examined No [...] per day LABS: CBC: Recent Labs 02/15/191702/16/1910002/17/19 0042 WBC 7.4 22.3* 19.0* RBC 3.88 3.84 [...] if abdomen pain improves and tolerating diet Gustavo Muniz MD Division of Hospitalist Medicine Inpatient Medical Services PAGER: [phone] * Sharmila Lr MD - 02/17/2019 6:41 [...] 94% BMI 21.80 kg/m INTAKE/OUTPUT: Date 02/17/19 0000 - 02/17/19 2359 Shift 4679-8585 2421-9504 1864-6910 24 Hour Total INTAKE Shift Total(mL/kg) OUTPUT [...] obvious rashes LABS CBC: Recent Labs 02/15/191702/16/1910002/17/19 004 WBC 7.4 22.3* 19.0* HGB 12.8 12.6 11.6* HCT 36.6 37.3 34.3* PLT 223 210 244 BMP: Recent Labs 02/15/191702/16/1910002/17/19 004 NA 141 140 139 K 4.0 4.2 4.1 CL 104 105 106 CO2 28 25 24 BUN 10 13 21* CREATININE 0.87 0.74 0.81 GLUCOSE 110* 182* 125* Hepatic: Recent Labs 02/15/191702/16/1910002/17/19 004 AST 80* 100* [...] Sharmila Lr MD, 0298 Associated attestation - Osmar Anderson MD - 02/17/2019 4:58 PM EST [facility] Physicians Surgery Patient Name: Ricardo Villalpando Date: 02/17/19 Pain well controlled, she is ambulatory. Her lipase is trending down, she is tolerating diet with minimal discomfort, mostly postoperative discomfort. BP 118/60 Pulse 84 Temp 99.7 F (37.6 C) (Temporal) Resp 16 Ht 5' (1.524 m) Wt 111 lb 9.6 oz (50.6 kg) SpO2 94% BMI 21.80 kg/m CBC: Recent Labs 02/15/191702/16/1910002/17/19 0042 WBC 7.4 22.3* 19.0* HGB 12.8 12.6 11.6* HCT 36.6 37.3 34.3* PLT 223 210 244 BMP: Recent Labs 02/15/191702/16/1910002/17/19 0042 NA 141 140 139 K 4.0 4.2 4.1 CL 104 105 106 CO2 28 25 24 BUN 10 13 21* CREATININE 0.87 0.74 0.81 GLUCOSE 110* 182* 125* Hepatic: Recent Labs 02/15/191702/16/1910002/17/19 0042 ALKPHOS 94 83 75 ALT 76* [...] Fellow in the evaluation and management of Ricardo Villalpando in the development of a treatment [...] questions were answered. * Yaz De La Torre, MS, RD, LD - 02/16/2019 2:13 PM [...] High Nutrient Needs: Estimated Daily Total Kcal: 2601-4090 (25-28) Estimated Daily Protein (g): 51-61 (1.0-1.2) [...] 6 months: (08/13/18) 139# --> (02/12/19) 113# Reliance Body Wt: 100 lb (45.4 kg), BMI [...] Weight, Monitor Bowel Function Contact Number: pager [phone] * Carina Ovalles, OT - 02/16/2019 11:29 AM EST Occupational Therapy Occupational Therapy Initial Assessment Date: 02/16/2019 Patient Name: Ricardo Villalpando : 1940 Date of Service: 02/16/2019 Discharge Recommendations: Home with assist PRN Assessment Performance deficits / Impairments: Decreased functional mobility ;Decreased ADL status;Decreased strength;Decreased safe awareness;Decreased endurance Assessment: OT eval completed. Pt presents with above deficits limiting functional indep. Pt safe to return home but suggested pt stay with daughter initially post discharge for safety. Prognosis: Good Decision Making: Low Complexity Exam: [facility] OT Education: OT Role;Plan of Care;ADL [...] Ambulation Assistance: Independent Transfer Assistance: Independent Active Clinical Field Specialist: Yes Mode of Transportation: Car Occupation: Retired [...] Home Management Training, Cognitive/Perceptual Training OutComes Score AM-[facility] Daily Activity Inpatient How much help for putting on and taking off regular lower body clothing?: A Little How much help for Bathing?: A Little How much help for Toileting?: A Little How much help for putting on and taking off regular upper body clothing?: None How much help for taking care of personal grooming?: None How much help for eating meals?: None AM-[facility] Inpatient Daily Activity Raw Score: [address] Inpatient ADL T-Scale Score : 44.27 ADL [...] Plan [facility]. Carina Ovalles OTR/L * Debbi Walters RN - 02/16/2019 11:18 AM EST Lipase high at 1,101. Dr. Flavio balderas to notify. Lila Funk PA-C also notified per Dr. Muniz request. * Kb Hamlin RCP - 02/16/2019 10:19 AM EST Patient Evaluation [...] 5 Changing Therapy to DuoNeb PRN * Gustavo Muniz MD - 02/16/2019 8:32 AM EST Hospitalist Progress Note 02/16/2019 8:32 AM [phone]: Please page me for patient care issues. [phone]: Please page [facility] night Hospitalist for any issues. Subjective: Admit Date: 02/11/2019 PCP: ALISSON MORTON DO Room#: [id number] Interval History: Patient seen and examined No [...] kg) 02/15/19 0627 109 lb (49.4 kg) 02/14/19519 109 lb 8 oz (49.7 kg) Medications: [...] times per day LABS: CBC: Recent Labs 02/15/191702/16/19100 WBC 7.4 22.3* RBC 3.88 3.84 HGB 12.8 12.6 HCT 36.6 37.3 MCV 94.4 97.2 RDW 12.1 12.3 PLT 223 210 BMP: Recent Labs 02/14/19 0126 02/15/191702/16/19 010 NA -- 141 140 K 3.8 4.0 4.2 CL -- 104 105 CO2 -- 28 25 BUN -- 10 13 CREATININE -- 0.87 0.74 GLUCOSE -- 110* 182* CALCIUM -- 9.6 9.4 ANIONGAP -- 8 11 LIVER PROFILE: Recent Labs 02/15/191702/16/19 010 AST 80* 100* ALT 76* 81* BILITOT [...] staff Advance Directive: Full Code Discharge planning: Gustavo Muniz MD Division of Hospitalist Medicine Inpatient Medical Services PAGER: [phone] Addendum patient was complaining of abdominal pain [...] Intake/Output Summary (Last 24 hours) at 02/16/2019 0724 Last data filed at 02/16/2019 0534 Gross [...] reviewed with the patient. CBC: Recent Labs 02/15/198 02/16/19 010 WBC 7.4 22.3* RBC 3.88 3.84 HGB 12.8 12.6 HCT 36.6 37.3 MCV 94.4 97.2 MCH 32.9 32.8 MCHC 34.8 33.8 RDW 12.1 12.3 PLT 223 210 MPV 10.3 10.1 CMP: Recent Labs 02/14/19 0126 02/15/19 0018 02/16/19 010 NA -- 141 140 K 3.8 4.0 [...] change of patient's GI condition. Thanks. * Alisson Mcdonald RN - 02/15/2019 6:24 PM EST Report to nery. * Alisson Mcdonald RN - 02/15/2019 9:00 AM EST Hearing aids returned to patient. * Gustavo Muniz MD - 02/15/2019 8:29 AM EST Hospitalist Progress Note 02/15/2019 8:29 AM [phone]: Please page me for patient care issues. [phone]: Please page [facility] night Hospitalist for any issues. Subjective: Admit Date: 02/11/2019 PCP: ALISSON MORTON DO Room#: [id number] Interval History: Patient seen and examined No [...] 7 -- 8 LIVER PROFILE: Recent Labs 02/13/195002/15/19 0018 AST 62* 80* ALT 66 76* BILITOT [...] staff Advance Directive: Full Code Discharge planning: Gustavo Muniz MD Division of Hospitalist Medicine Inpatient Medical Services PAGER: [phone] * Carina Ovalles OT - 02/15/2019 7:10 AM EST Occupational Therapy OT Hold Note OT eval and treat orders received. Pt is scheduled for ERCP and cholecystectomy today. Will hold OTeval until after surgery. Carina Ovalles OTR/L * Gustavo Muniz MD - 02/14/2019 12:11 PM EST Hospitalist Progress Note 02/14/2019 12:11 PM [phone]: Please page me for patient care issues. [phone]: Please page [facility] night Hospitalist for any issues. Subjective: Admit Date: 02/11/2019 PCP: ALISSON MORTON DO Room#: [id number] Interval History: Patient seen and examined No [...] staff Advance Directive: Full Code Discharge planning: Gustavo Muniz MD Division of Hospitalist Medicine Inpatient Medical Services PAGER: [phone] * Lila Vance PA-C - 02/14/2019 10:02 [...] reviewed with the patient. CBC: Recent Labs 02/12/195302/13/19 005 WBC 5.5 5.7 RBC 3.37* 3.48* HGB [...] conservative management per primary team. * Iesha Loya, PT - 02/13/2019 5:21 PM EST Physical Therapy Facility/Department: [facility] Initial Assessment NAME: Ricardo Villalpando : 1940 Date of Service: 02/13/2019 [...] Ambulation Assistance: Independent Transfer Assistance: Independent Active Clinical Field Specialist: Yes Mode of Transportation: Car Occupation: Retired [...] Device Assistance: Modified Independent Gait Deviations: Slow Rosa;Decreased step length Distance: 100' x 2 Stairs/Curb [...] lost her taste for food. Patient states "I guess it was gall stones causing this" Patient stated that she was weighed via standing scale at 113# and "has gained some weight back". Patient reports that her lowest weight was [...] High Nutrient Needs: Estimated Daily Total Kcal: 3450-0373 (25-28) Estimated Daily Protein (g): 51-61 (1.0-1.2) [...] cm) Current Body Wt: 113 lb (51.3 kg)(1/ standing scale) Admission Body Wt: 103 lb (46.7 kg)(stated) % Weight Change: , 18.7% weight loss in 6 months: (08/13/18) 139# --> (02/12/19) 113# Reliance Body Wt: 100 lb (45.4 kg), BMI [...] Constipation, Monitor Bowel Function Contact Number: pager [phone] * Lila Vance PA-C - 02/13/2019 10:50 [...] F (36.6 C) Min: 97.4 F (36.3 C)Max: 98.1 F (36.7 C) RESPIRATIONS RANGE: Resp [...] reviewed with the patient. CBC: Recent Labs 02/11/19 0726 02/12/19 5302/13/19 0051 WBC 9.9 5.5 5.7 RBC 3.60* 3.37* 3.48* HGB 11.8 11.1* 11.6* HCT 34.8* 32.5* 32.8* MCV 96.7 96.5 94.4 MCH 32.7 33.0 33.3 MCHC 33.9 34.2 35.2 RDW 12.4 12.4 12.3 PLT 193 163 196 MPV 10.0 10.3 10.1 CMP: Recent Labs 02/11/19 0726 02/12/19 00502/13/19 005 NA 142 142 142 K 3.7 [...] Continue conservative management per primary team. * Gustavo Muniz MD - 02/13/2019 8:42 AM EST Hospitalist Progress Note 02/13/2019 8:42 AM [phone]: Please page me for patient care issues. [phone]: Please page [facility] night Hospitalist for any issues. Subjective: Admit Date: 02/11/2019 PCP: ALISSON MORTON DO Room#: [id number] Interval History: Patient seen and examined No [...] g Intravenous Q8H LABS: CBC: Recent Labs 0172502/12/195302/13/1950 WBC 9.9 5.5 5.7 RBC 3.60* 3.37* 3.48* HGB 11.8 11.1* 11.6* HCT 34.8* 32.5* 32.8* MCV 96.7 96.5 94.4 RDW 12.4 12.4 12.3 PLT 193 163 196 BMP: Recent Labs 02/11/1972502/12/195302/13/1950 NA 142 142 142 K 3.7 3.6 3.4* CL 111* 110* 108* CO2 27 27 26 BUN 15 11 6* CREATININE 0.72 0.78 0.68 GLUCOSE 120* 84 93 CALCIUM 8.9 8.8 9.0 ANIONGAP 5 4 7 LIVER PROFILE: Recent Labs 02/11/1972502/12/195302/13/1950 AST 76* 87* 62* ALT 64 81* [...] staff Advance Directive: Full Code Discharge planning: Gustavo Muniz MD Division of Hospitalist Medicine Inpatient Medical Services PAGER: [phone] * Sonny Peres MD - 02/12/2019 10:47 AM EST Hospitalist Progress Note 02/12/2019 10:48 AM Subjective: Admit Date: 02/11/2019 PCP: ALISSON MORTON DO Interval History: No overnight issues. Pt denies any abdominal pain DIET FULL LIQUID; Date 02/12/19 0000 - 02/12/19 2359 Shift 1120-8667 7445-5962 3230-7107 24 Hour Total INTAKE P.O.(mL/kg/hr) 0(0) 0 [...] Date PHART 7.464 08/05/2018 PO2ART 113.3 08/05/2018 [id number] 32.7 08/05/2018 Recent Labs 02/11/19 1100 02/12/19 005 INR 1.0 1.1 Recent Labs 02/11/19725 TROPONINI [...] If patient is beta-lactam allergic, please call [facility] Microbiology lab ([phone]) within 2 days to request susceptibility testing. [...] Code Discharge planning: TBD Sonny Peres MD [facility] Hospitalist * Devan Fitzgerald MD - [...] or concerns. -2 Department of General Surgery #[id number] documented in this encounterSUMMA Work Phone: [phone] Hospital Discharge instructions* Discharge Instr - Activity* Gustavo Muniz MD - 02/13/2019 8:37 AM EST As tolerated * Discharge Instr - Diet* Gustavo Muniz MD - 02/13/2019 8:37 AM EST [...] sent through Care Everywhere. * Cholecystectomy: Post-op (Guatemalan) documented in this encounterSMA Work Phone: Evaluation note* Diagnosis Left thyroid [...] (HCC) Nutritional marasmus [facility]: Evaluation noteNo assessment information available [facility] Work Phone: Evaluation note* Diagnosis 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) [facility]* Diagnosis Onset Date Resolution Status Dysphagia acute History of esophageal stricture acute History of hypertension acut e [facility] Work Phone: Evaluation note* Diagnosis Other specified symptoms and signs involving the circulatory and respiratory systems [facility]* Diagnosis Anemia- Primary Unspecified anemia Anemia Unspecified anemia Hyponatremia Hyposmolality and/or hyponatremia Hepatitis Unspecified hepatitis [facility]* Diagnosis Coronary artery disease involving false pass coronary artery of false pass heart without angina pectoris- Primary Persistent atrial fibrillation (HCC) Atrial fibrillation Mixed hyperlipidemia [facility]* Diagnosis Other specified symptoms and signs involving the circulatory and respiratory systems- Primary Other specified symptoms and signs involving the circulatory and respiratory systems documented [facility]* Diagnosis Other specified abnormal findings of blood chemistry documented [facility]* Diagnosis Other persistent atrial fibrillation (HCC)- Primary [facility]* Diagnosis Hyperlipidemia, unspecified- Primary [facility]* Diagnosis Onset Date Resolution Status Dysphagia acute Alzheimer's dementia chronic [facility] Work Phone: Evaluation note* Diagnosis Injury of head, initial encounter- Primary [facility] Dorsalgia, unspecified- Primary Unspecified urinary incontinence [facility]* Diagnosis Coronary artery disease involving false pass coronary artery of false pass heart without angina pectoris- Primary Persistent atrial fibrillation (HCC) Atrial fibrillation Mixed hyperlipidemia Vascular dementia, unspecified dementia severity, unspecified whether behavioral, psychotic, or mood disturbance or anxiety (HCC) documented in this encounter [facility] note* Diagnosis Other specified abnormal findings of blood chemistry documented in this encounter [facility] note* Diagnosis Other specified diseases of liver documented in this encounter [facility] note* Diagnosis Dysphagia Esophageal obstruction Stricture and stenosis of esophagus Dementia (HCC) Other persistent mental disorders due to conditions classified elsewhere Stented coronary artery Postsurgical percutaneous transluminal coronary angioplasty status documented in this encounter [facility] note* Diagnosis Eosinophilic esophagitis- Primary documented in this encounter [facility] note* Diagnosis Eosinophilic esophagitis- Primary documented in this encounter [facility] note* Diagnosis Eosinophilic esophagitis- Primary documented in this encounter [facility] note* Diagnosis Eosinophilic esophagitis- Primary documented in this encounter [facility] note* Diagnosis Other specified abnormal findings of blood chemistry- Primary Other specified abnormal findings of blood chemistry documented in this encounter [facility] note* Diagnosis Other specified abnormal findings of blood chemistry- Primary Other specified abnormal findings of blood chemistry documented in this encounter [facility] note* Diagnosis Other specified diseases of liver- Primary Other specified diseases of liver documented in this encounter [facility] note* Diagnosis Coronary artery disease involving false pass coronary artery of false pass heart without angina pectoris- Primary Persistent atrial fibrillation (HCC) Atrial fibrillation Mixed hyperlipidemia documented in this encounter [facility] Discharge instructions* Instructions* Juanis Maldonado V., RN [...] mild sore throat. You may use an ktny-nir-aflzlyi chloraseptic spray, gargle with warm salt water, [...] Discharge Instructions You must carefully read the "Consumer Information Use and Disclaimer" below in order to understand and correctly [...] an upset belly after: o Coffee o [place] fruits and juices o Tomato products o [...] 2013-11-16 Last Updated 02/15/16 documented in this [facility] Work Phone: Hospital Discharge instructions* Attachments The following attachments cannot be sent through Care Everywhere. * Upper GI Endoscopy Discharge Instructions (Guatemalan) [facility]narrative)No reason for referral information [facility] Work Phone: Reason for visit Narrative* Imaging (Routine) - Closed Specialty Diagnoses / Procedures Referred By Contac t Referred To Contact Radiology Diagnoses Other specified diseases of liver Procedures MR abdomen w and wo contrast Alisson Morton, DO [address] [place] [address] Phone: tel: fax: [facility] MRI [address] [place] [address] Phone: tel: Referral ID Status Reason Start Date Expiration Date Visits Re quested Visits Authorized [id number] Closed 12/01/2023 11/30/2024 [facility] History of Present Illness * Yaz Bowman RN - 09/21/2018 5:23 PM EDT D/C [...] CBC. Discussed with patient, daughter, and staff research scientist. Will continue to monitor. OK to discharge [...] For additional Questions please call Endoscopy at [phone]. Thank You! * Yaz Bowman RN - 09/21/2018 8:24 AM EDT Daughter bernardo notified via telephone that patient would be going to endo at approx 1100. * Thania Leong MD - 09/20/2018 4:35 PM EDT No further spotting today. Pain has greatly improved. In the process of bowel prep for colonoscopy tomorrow. No pre sales network engineer concerns at this time. * Haily Mcghee [...] (36.9 C) (Temporal) Resp 16 Ht 5' 3" (1.6 m) Wt 122 lb 9.6oz (55.6 [...] 15 08/05/2018 Lab Results Component Value Date [id number] 815 08/06/2018 Lab Results Component Value Date FOLATE >20.0 08/06/2018 LDH 182 ASSESSMENT AND PLAN Review of records from [facility] reveals that patient did in fact receive complete course of Venoferinfusions - the last being 09/06/2018. Colonoscopy tomorrow. RBC morphology still pending. Discussedwith patient and staff research scientist. Will continue to monitor. Total visit time > 35 minutes. * Madison Jane PTA - 09/20/2018 1:00 PM EDT Physical Therapy Facility/Department: [facility] 4S TELEMETRY Daily Treatment Note NAME: Ricardo Villalpando : 1940 Date of Service: 09/20/2018 [...] Minutes: 15 Minutes(gait) Madison Jane PTA * Alisson Morton DO - 09/20/2018 12:17 PM EDT Hospitalist Progress Note 09/21/2018 9:18 AM Subjective: Admit Date: 09/15/2018 PCP: ALISSON MORTON DO Interval History: pt doingok today feelingmuch better No intake or output data in the 24 hours ending 09/21/18917 Medications: sodium chloride 75 mL/hr at 09/21/18 [...] (36.7 C) (Temporal) Resp 14 Ht 5' 3" (1.6 m) Wt 122 lb 9.6 oz [...] GBS colonization of urine 8. Hx of CAD/WI/stents recently on ASA and Plavix, Cardiology will not agree to withholding either at this time 9. Hx of anemia and transfusions, ? of MDS, will re-consult Dr. Amin 10. Vaginal bleeding, consult WELFARE MANAGER no workup needed Plan Colonoscopy tomorrow Advance Directive: Full Code DVT prophylaxis scd's Active Problems: Coronary artery disease involving false pass coronary artery of false pass heart without angina pectoris Abdominal pain Resolved Problems: * No resolved hospital problems. * ALISSON MORTON DO * Kiko Lau MD - [...] (37.1 C) (Temporal) Resp 16 Ht 5' 3" (1.6 m) Wt 122 lb 9.6 oz [...] Risksreviewed .Active Problems: Coronary artery disease involving false pass coronary artery of false pass heart without angina pectoris Abdominal pain Resolved [...] (36.7 C) (Temporal) Resp 17 Ht 5' 3" (1.6 m) Wt 122 lb 9.6 oz (55.6 kg) SpO2 96% BMI 21.72 kg/m General appearance: alert and cooperative with exam, no distress Lungs: clear to auscultation bilaterally Heart: regular rhythm, S1, S2 normal, no murmur, click, rub or gallop Abdomen: soft, non-tender; bowel sounds normal; no masses, no organomegaly Extremities: Assessment and Plan: 1. 2. Active Problems: Coronary artery disease involving false pass coronary artery of false pass heart without angina pectoris Abdominal pain Resolved Problems: * No resolved hospital problems. * DIMITRIS CAVAZOS MD * Constance Crenshaw, WIND FIELD MANAGER - EXTERIOR INTERIOR SPECIALIST - 09/19/2018 11:46 AM EDT CARDIOLOGY PROGRESS NOTE Chart and interval events reviewed. Reason for Visit follow-up CAD SUBJECTIVE: Ricardo Villalpando denies CP, SOB, PND, orthopnea, edema, [...] AC Active Problems: Coronary artery disease involving false pass coronary artery of false pass heart without angina pectoris Abdominal pain Resolved [...] collapses by greater than 50% with inspiration. [facility]: 08/04/2018 1. Acute coronary syndrome. Reperfusion was [...] team, GI and heme/onc Vaginal bleeding - WELFARE MANAGER consulted Dispo: will continue to follow Electronicallysigned by KALYN Arroyo CNP on 09/19/2018 at 11:46 AM * Kiko Bowie MD - 09/19/2018 9:45 AM EDT GENERAL SURGERY Progress Note PATIENT NAME: Ricardo Villalpando TODAY'S DATE: 09/19/2018 Agree with PA [...] (36.7 C) (Temporal) Resp 17 Ht 5' 3" (1.6 m) Wt 122 lb 9.6 oz [...] dry, and intact Data: CBC: Recent Labs 09/18/18 0352 09/19/18 0406 WBC 8.9 6.2 HGB 11.8 10.6* HCT 36.2 32.0* PLT 281 225 BMP: Recent Labs 09/17/18 0431 09/18/18 0352 09/19/18 0406 NA 139 136 133* K 3.3* 3.6 3.8 CL 104 102 102 CO2 27 28 27 BUN 8 10 10 CREATININE 0.66 0.70 0.66 GLUCOSE 141* 133* 125* Hepatic: Recent Labs 09/17/181 09/18/18 0352 09/19/18 0406 AST 76* 69* [...] stratification and potential need for surgical intervention: "At this point we cannot interrupt her dual antiplatelet therapy. She should remain on aspirin and Plavix. Perhaps alternative therapy for her cholecystitis could be done." - Plan for non-operative management secondary to recent stents, patient symptomatically resolved, start PO Augmentin for 14 days. - Abdominal US ordered by PCP for evaluation due to elevated lipase over weekend - WELFARE MANAGER consulted for vaginal bleeding - Regular Diet - prn pain/nausea medication - activity as tolerated - disposition: stable from surgery standpoint, continue po ABX,, f/u with Dr. Ash in 1 month Patient counseled on risks, benefits, and alternatives of treatment plan today. Patient states an understanding and willingness to proceed with plan. Adela Reeves PA-C Personal Pager [phone] [facility] Surgery Pager [phone] during hours 7:30a-4:30p Wednesday-Wednesday After hours, please contact physician time motion analyst. * Seema Schwarz MD - 09/18/2018 2:38 PM EDT Progress Note 09/18/2018 2:38 PM Subjective: Admit Date: 09/15/2018 PCP: ALISSON MORTON DO Interval History: Patient was seen by GI [...] 11.3* 11.8 PLT 247 281 Recent Labs 09/16/186 09/17/18 0431 09/18/18 0352 NA 135 139 136 K 3.2* 3.3* 3.6 CL 99 104 102 CO2 29 27 28 BUN 11 8 10 CREATININE 0.75 0.66 0.70 GLUCOSE 131* 141* 133* Recent Labs 09/16/186 09/17/18 0431 09/18/18 0352 AST 133* 76* 69* ALT 145* 109* 93* BILITOT 0.9 0.6 0.8 ALKPHOS 145* 146* 165* Objective: Vitals: BP 123/60 Pulse 85 Temp 98.5 F (36.9 C) (Temporal) Resp 16 Ht 5' 3" (1.6 m) Wt 122 lb 9.6 oz [...] GBS colonization of urine 8. Hx of CAD/WI/stents recently on ASA and Plavix, Cardiology will not agree to withholding either at this time 9. Hx of anemia and transfusions, ? of MDS, will re-consult Dr. Amin 10. Vaginal bleeding, consult WELFARE MANAGER Advance Directive: Full Code DVT prophylaxis scd's Discharge planning: home Active Problems: Coronary artery disease involving false pass coronary artery of false pass heart without angina pectoris Abdominal pain Resolved Problems: * No resolved hospital problems. * Seema Schwarz MD * Franklin Aviles, PT - 09/18/2018 10:32 AM EDT Physical Therapy Facility/Department: [facility] 4S TELEMETRY Daily Treatment Note NAME: Ricardo Villalpando : 1940 Date of Service: 09/18/2018 [...] Gait: pt demonstrates reciprocal pattern with good rosa, no unsteadiness or LOB Distance: 175 'x2 [...] Time Individual Concurrent Group Co-treatment Time In 955 Time Out 1010 Minutes 14 Timed Code Treatment Minutes: 14 Minutes(gait training) Franklin Aviles PT * Noelle Manrique, KALYN - EXTERIOR INTERIOR SPECIALIST - 09/18/2018 10:21 AM EDT CARDIOLOGY PROGRESS NOTE Chart and interval events reviewed. Reason for Visit hospital follow up CAD SUBJECTIVE: Ricardo Villalpando states abd pain resolved. No CP (was anginal sx w/WI), palpitations, dizziness, syncope. Up in chair in [...] AC Active Problems: Coronary artery disease involving false pass coronary artery of false pass heart without angina pectoris Abdominal pain Resolved [...] had rectal or vaginal bleeding. Had -ve pre sales network engineer eval 1 week ago. Was treated with [...] (36.6 C) (Temporal) Resp 16 Ht 5' 3" (1.6 m) Wt 122 lb 9.6 oz [...] per surgery and cardiology due to recent WI, stents, anticoag. Begin Yeny in the interim. 2. Will need colonoscopy due to LEXII, h/o poss rectal bleeding. Will discuss timing with cardiology. Active Problems: Abdominal pain Resolved Problems: * No resolved hospital problems. * * Lex Cline, DO - 09/18/2018 6:49 AM EDT Department of Surgery Progress Note - Surg 4 PATIENT NAME: Ricardo Villalpando : 1940 ATTENDING PHYSICIAN: Alisson Morton DO ADMIT DATE: 09/15/2018 TODAY'S DATE: [...] 98 18 97 % 09/17/18 1601 5' 3" (1.6 m) 09/17/18 0938 (!) 157/84 98.3 F (36.8 C) Temporal 89 18 96 % PHYSICAL EXAM: CONSTITUTIONAL: NAD, Resting in bed CHEST: Resp effort easy and unlabored ABDOMEN: soft, non-distended, non-tender EXT: extremities normal, atraumatic, no cyanosis or edema INTAKE/OUTPUT: I/O last 3 completed shifts: In: 900 [I.V.:900] Out: 800 [Urine:800] No intake/output data recorded. Data Recent Labs 09/15/18 1355 09/16/186 09/18/18 0352 WBC 8.8 8.1 8.9 HGB 12.0 11.3* 11.8 HCT 36.5 34.0* 36.2 PLT 275 247 281 Recent Labs 09/16/18 0446 09/17/18 [...] stratification and potential need for surgical intervention: "At this point we cannot interrupt her dual antiplatelet therapy. She should remain on aspirin and Plavix. Perhaps alternative therapy for her cholecystitis could be done." - Plan for non-operative management secondary to recent stents, patient symptomatically resolved, start PO Augmentin for 14 days. - Regular Diet - prn pain/nausea medication - activity as tolerated Pager:[phone] Associated attestation - Donald Ash MD - [...] for this patient. * Patrizia Triplett RD, LD - 09/17/2018 4:23 PM EDT Nutrition Education Type and Reason for Visit: Initial, Consult -Low Fat, Cardiac diet education Nutrition Assessment: Assessment completed 09/17/18 -please see rd notes Verbally reviewed information with Patient/daughter: low fat/ cardiac diet Written educational materials provided. Contact name and number provided. RD following Contact Number: [phone] * Patrizia Triplett RD, LD - 09/17/2018 4:10 PM EDT Nutrition Assessment [...] varied po intakes (dtr encouraging ensure athome), "healthy" dietary changes (dtr cooking for pt now), and recovery from mi Malnutrition Assessment: Malnutrition Status: At risk for malnutrition Context: Acute illness or injury Nutrition Risk Level: High Nutrient Needs: Estimated Daily Total Kcal: 0073-7323 Estimated Daily Protein (g): 55-66 Nutrition Diagnosis: [...] None ONS intake: Anthropometric Measures: Ht: 5' 3" (160 cm) Current Body Wt: 122 lb (55.3 kg) Usual Body Wt: 140 lb (63.5 kg) % Weight Change: , 12.9% wt loss in 2 mo Reliance Body Wt: 115 lb (52.2 kg), % Reliance Body 106% BMI Classification: BMI 18.5 - 24.9 Normal Weight Nutrition Interventions: Continue current diet, Start ONS Education Initiated Nutrition Evaluation: Evaluation: Goals set Goals: pt will receive and tolerate adequate nutrition; pt will not have unintentional wt loss Monitoring: Meal Intake, Supplement Intake, Diet Tolerance, Skin Integrity, I&O, Weight, Pertinent Labs, Monitor Bowel Function Contact Number: [phone] * Thania Roldan OT - 09/17/2018 2:34 PM EDT Occupational Therapy Occupational Therapy Initial Assessment Date: 09/17/2018 Patient Name: Ricardo Villalpando : 1940 Date of Service: 09/17/2018 [...] They would most likely benefit from a vocational rehabilitation teacher consult. Spoke to Dr. Schwarz re: family and pt. Concerns. He reported placing a consult in for them. Thania Roldan OT * Seema Schwarz MD - 09/17/2018 1:59 PM EDT Progress Note 09/17/2018 1:59 PM Subjective: Admit Date: 09/15/2018 PCP: ALISSON MORTON DO Interval History: Patient is comfortable [...] (36.8 C) (Temporal) Resp 18 Ht 5' 3" (1.6 m) Wt 122 lb 9.6 oz [...] GBS colonization of urine 7. Hx of CAD/WI/stents recently on ASA and Plavix, Cardiology will [...] Department of Surgery Progress Note PATIENT NAME: Ricardo Villalpando : 1940 ATTENDING PHYSICIAN: Alisson Morton DO ADMIT DATE: 09/15/2018 TODAY'S DATE: [...] Date 09/17/18 0000 - 09/17/18 2359 Shift 5726-8163 4153-0483 1331-2953 24 Hour Total INTAKE I.V.(mL/kg) 900(16.2) 900(16.2) [...] need for surgical intervention; patient recently had WI with 2x stents in August 04 2018, on dual antiplatelet therapy. - Epigastric/RUQ abdominal pain resolved - Regular Diet - Attempt non-operative management secondary to recent stents, start PO Augmentin - HIDA scan cancelled - GI following - prn pain/nausea medication - activity as tolerated Pager:[phone] * Dimitris Cavazos MD - 09/16/2018 3:09 [...] (36.2 C) (Temporal) Resp 19 Ht 5' 3" (1.6 m) Wt 122 lb 9.6 oz (55.6 kg) SpO2 97% BMI 21.72 kg/m General appearance: alert and cooperative with exam, no distress Lungs: Heart: Abdomen: Extremities: Assessment and Plan: 1. K+ 2. Active Problems: Abdominal pain Resolved Problems: * No resolved hospital problems. * DIMITRIS CAVAZOS MD * Thania Riojas - 09/16/2018 11:21 AM EDT Patient arrived to [facility] for her Hida Scan. Her IV was [...] 09/16/2018 10:15 AM EDT Physical Therapy Facility/Department: [facility] TELEMETRY Initial Assessment NAME: Ricardo Villalpando : 1940 Date of Service: 09/16/2018 [...] Care;General Safety Barriers to Learning: Pt is [place] which may impact her ability to learn [...] Gait: pt demonstrates reciprocal pattern with good rosa, no unsteadiness or LOB Distance: 20'x2 Comments: [...] Left in bed, Nurse notified OutComes Score AM-[facility] Mobility Inpatient How much difficulty turning over [...] climbing 3-5 steps with a railing?: Total [facility] Inpatient Mobility Raw Score : 16 [facility] Inpatient T-Scale Score : 40.78 Mobility Inpatient CMS 0-100% Score: 54.16 Mobility Inpatient CMS G-Code Modifier : CK AM-[facility] Score AM-[facility] Inpatient Mobility Raw Score : 16 (09/16/181004) AM-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 Diagnosis Thyroid nodule Nontoxic uninodular goiter Advance Directives No Advanced Directives Records FoundDocuments on File Type Date Recorded Patient Film Tests Checker Expl anation Advance Directives and Livin g Will Advance Directives and Livin g Will 08/09/2018 2:28 PM Advance Directives and Livin g Will 08/19/2018 2:08 PM Power of Nutritionists Latest Code Status on File Code Status Date Activated Date Inactivated Comments Full Code 09/15/2018 1:35 PM Full Code 08/04/2018 8:50 PM 08/08/2018 6:48 PM Full Code 08/04/2018 8:50 PM 08/04/2018 8:50 PM Documents on File Type Date Recorded Patient Film Tests Checker Expl anation Advance Directives and Livin g Will Advance Directives and Livin g Will 08/09/2018 2:28 PM Advance Directives and Livin g Will 08/19/2018 2:08 PM Advance Directives and Livin g Will 02/22/2019 10:08 AM Advance Directives and Livin g Will 03/09/2019 1:06 PM Power of Nutritionists Latest Code Status on File Code Status Date Activated Date Inactivated Comments Full Code 02/14/2019 10:08 AM 02/18/2019 4:36 PM Full Code 02/11/2019 12:28 PM 02/14/2019 10:08 AM Full Code 09/15/2018 1:35 PM 09/21/2018 7:54 PM Documents on File Type Date Recorded Patient Film Tests Checker Expl anation Advance Directives and Livin g Will Advance Directives and Livin g Will 08/09/2018 2:28 PM Advance Directives and Livin g Will 08/19/2018 2:08 PM Advance Directives and Livin g Will 02/22/2019 10:08 AM Advance Directives and Livin g Will 03/09/2019 1:06 PM Advance Directives and Livin g Will 04/05/2019 3:18 PM Power of Nutritionists Documents on File Type Date Recorded Patient Film Tests Checker Expl anation ACP-Advance Directive ACP-Advance Directive 08/09/2018 2:28 PM ACP-Advance Directive 08/19/2018 2:08 PM ACP-Advance Directive 02/22/2019 10:08 AM ACP-Advance Directive 03/09/2019 1:06 PM ACP-Advance Directive 04/05/2019 3:18 PM ACP-Power of Nutritionists Documents on File Type Date Recorded Patient Film Tests Checker Expl anation ACP-Advance Directive ACP-Advance Directive 08/09/2018 2:28 PM ACP-Advance Directive 08/19/2018 2:08 PM ACP-Advance Directive 02/22/2019 10:08 AM ACP-Advance Directive 03/09/2019 1:06 PM ACP-Advance Directive 04/05/2019 3:18 PM ACP-Power of Nutritionists Latest Code Status on File Code Status Date Activated Date Inactivated Comments Full Code 02/14/2019 10:08 AM 02/18/2019 4:36 PM Full Code 02/11/2019 12:28 PM 02/14/2019 10:08 AM Full Code 09/15/2018 1:35 PM 09/21/2018 7:54 PM Full Code 08/04/2018 8:50 PM 08/08/2018 6:48 PM Full Code 08/04/2018 8:50 PM 08/04/2018 8:50 PM Documents on File Type Date Recorded Patient Film Tests Checker Expl anation ACP-Advance Directive ACP-Power of Nutritionists ACP-Advance Directive 04/05/2019 3:18 PM ACP-Advance Directive 03/09/2019 1:06 PM ACP-Advance Directive 02/22/2019 10:08 AM ACP-Advance Directive 08/19/2018 2:08 PM ACP-Advance Directive 08/09/2018 2:28 PM Latest Code Status on File Code Status Date Activated Date Inactivated Comments Full Code 02/14/2019 10:08 AM Documents on File Type Date Recorded Patient Film Tests Checker Expl anation Advance Directives and Livin g Will Advance Directives and Livin g Will 08/09/2018 2:28 PM Advance Directives and Livin g Will 08/19/2018 2:08 PM Advance Directives and Livin g Will 02/22/2019 10:08 AM Power of Nutritionists Advance Directive Response Recorded Date/ Time Living Will No February 10 3:40pm Power of Nutritionists Yes February 10 3:40pm Advance Directive Response Recorded Date/ Time Name of Medical Power of Nutritionists Margarita Cornell - aki May 12, 2022 12:29pm Living Will Yes May 12, 2022 12:29pm Power of Nutritionists Yes May 12 12:29pm Advance Directive Response Recorded Date/ Time Name of Medical Power of Nutritionists Margarita Cornell - daughter May 12, 2022 12:29pm Name of Medical Power of Nutritionists MARGARITA CORNELL June 01, 2022 8:32pm Living Will Yes June 01, 2022 8:32pm Power of Nutritionists Yes June 01 8:32pm Documents on File Type Date Recorded Patient Film Tests Checker Expl anation Advance Directives and Living Will 04/04/2019 Advance Directives and Living Will 03/07/2019 Advance Directives and Living Will 02/11/2019 Latest Code Status on File Code Status Date Activated Date Inactivated Comments Full Code 06/13/2022 4:30 PM Healthcare Agents on File Name [facility] Cornell Child Health Care Agent Documents on File Type Date Recorded Patient Film Tests Checker Expl anation Advance Directives and Living Will 04/04/2019 Advance Directives and Living Will 03/07/2019 Advance Directives and Living Will 02/11/2019 Latest Code Status on File Code Status Date Activated Date Inactivated Comments Full Code 06/13/2022 4:30 PM 06/16/2022 10:36 PM Healthcare Agents on File Name Relationship Healthcare Agent Relationshi p Communication Margarita Demali Child Health Care Agent [phone] (Home) Healthcare Agents on File Name Relationship Healthcare Agent Relationshi p Communication Margarita Demali Child Health Care Agent Healthcare Agents on File Name Relationship Healthcare Agent Relationshi p Communication Margarita Demali Child Health Care Agent Latest Code Status on File Code Status Date Activated Date Inactivated Comments Full Code 06/13/2022 4:30 PM 06/16/2022 10:36 PM Healthcare Agents on File Name Relationship Healthcare Agent Relationshi p Communication Margarita Demali Child Health Care Agent [phone] (Home) Healthcare Agents on File Name Relationship Healthcare Agent Relationshi p Communication Margarita Demali Child Health Care Agent Healthcare Agents on File Name Relationship Healthcare Agent Relationshi p Communication Margarita Demali Child Health Care Agent [phone] (Home) Advance Directive Response Recorded Date/ Time Living Will Yes June 01, 2022 8:32pm Power of Nutritionists Yes June 01 8:32pm Healthcare Agents on File Name Relationship Healthcare Agent Relationshi p Communication Margarita Demali Child Health Care Agent [phone] (Home) [email or web address] Healthcare Agents on File Name Relationship Healthcare Agent Relationshi p Communication Margarita Demali Child Health Care Agent [phone] (Home) [email or web address] Healthcare Agents on File Name Relationship Healthcare Agent Relationshi p Communication Margarita Demali Child Health Care Agent [phone] (Home) [email or web address] Healthcare Agents on File Name Relationship Healthcare Agent Relationshi p Communication Margarita Demali Child Health Care Agent [phone] (Home) [email or web address] Advance Directive Response Recorded Date/ Time Name of Medical Power of Nutritionists DAUGHTER December 29, 2022 12:22pm Living Will Yes December 29, 2 023 12:22pm Power of Nutritionists Yes December 29, 2022 12:22pm Advance Directive Response Recorded Date/ Time Name of Medical Power of Nutritionists DAUGHTER December 29, 2022 12:22pm Name of Medical Power of Nutritionists daughter April 04, 2023 11:12am Living Will Yes April 04, 2 024 11:12am Power of Nutritionists Yes April 04, 2023 11:12am Healthcare Agents on File Name Relationship Healthcare Agent Relationshi p Communication Margarita Maguireali Child Health Care Agent [phone] (Home) [email or web address] Healthcare Agents on File Name Relationship Healthcare Agent Relationshi p Communication Margarita Maguireali Child Health Care Agent [phone] (Home) [email or web address] Date Activated Date Inactivated Comments 06/13/2022 4:30 PM 06/16/2022 10:36 PM Healthcare Agents on File Name Relationship Healthcare Agent Relationshi p Communication Margarita Maguireali Child Health Care Agent [phone] (Home) [email or web address] Healthcare Agents on File Name Relationship Healthcare Agent Relationshi p Communication Margarita Maguireali Child Health Care Agent [phone] (Home) [email or web address] Healthcare Agents on File Name Relationship Healthcare Agent Relationshi p Communication Margarita Maguireali Child Health Care Agent [phone] (Mobile)[email or web address] Date Activated Date Inactivated Comments 06/13/2022 4:30 PM 06/16/2022 10:36 PM Healthcare Agents on File Name Relationship Healthcare Agent Relationshi p Communication Margarita Maguireali Child Health Care Agent [phone] (Mobile)[email or web address] Healthcare Agents on File Name Relationship Healthcare Agent Relationshi p Communication Margarita Maguireali Child Health Care Agent [email or web address] Healthcare Agents on File Name Relationship Healthcare Agent Relationshi p Communication Margarita Maguireali Daughter Health Care Agent [email or web address] Summary Purpose Family History No Family History Records Found Relationship Condition Age at Onset Recorded Date/T ranjana Not Specified Unknown Reason for Referral Status Reason Specialty Diagnoses / Procedures Referre d By Contact Referred To Contact Open Radiology Diagnoses Thyroid nodule Procedures US FINE NEEDLE ASPIRATION Zoe Wyatt APRN - EXTERIOR INTERIOR SPECIALIST [address] [facility] [address] [place] [address] Status Reason Specialty Diagnoses / Procedures Referre d By Contact Referred To Contact Open Radiology Diagnoses Thyroid nodule Procedures US Thyroid Zoe WyattKALYN - EXTERIOR INTERIOR SPECIALIST [address] [facility] [address] [place] [address] Status Reason Specialty Diagnoses / Procedures Referre d By Contact Referred To Contact Open Radiology Diagnoses Left thyroid nodule Procedures US GUIDED THYROID BIOPSY PERCUTANEOUS Adela Reeves PA-C [address] [facility] [address] [place] [address] Specialty Diagnoses / Procedures Referred By Elzbieta baeza Referred To Contact Cardiology Diagnoses Other specified symptoms and signs involving the circulatory and respiratory systems Procedures Vascular US carotid artery duplex bilateral Alisson Morton, DO [address] [place] [address] Referral ID Status Reason Start Date Expiration Date Visits Requested Visits Authorized [id number] Pending Review Perform Procedure 05/27/2022 11/23/2022 1 1 Discharge Instructions * Attachments The following attachments cannot be sent through Care Everywhere. * Thyroid: Biopsy: Fine-Needle: Post-op (Guatemalan) * Thyroid Nodules (Guatemalan) documented in this encounter Chief Complaint and [...] Dysphagia Alzheimer's dementia Chief Complaint Admit Date RETIREMENT LAB WORK March 16, 2024 5:00am MONTHLY EXAM March 21, 2024 2:27pm MONTHLY EXAM April 10, 2024 2:51 pm MONTHLY EXAM May 09, 2024 4:31 pm Chief Complaint Admit Date MONTHLY EXAM May 09, 2024 4:31 pm LABWORK June 12, 2024 5:00am needs to schedule esophagus stretching J jw 2024 9:09am Chief Complaint Admit Date MONTHLY EXAM May 09, 2024 4:31 pm LABWORK June 12, 2024 5:00am MONTHLY/ADMISSION EXAM June 20, 2024 10 :15pm needs to schedule esophagus stretching J jw 2024 9:09am Reason for Visit Admit Date Dysphagia August 18, 2024 9:09 am Esophageal stenosis August 18, 2024 9:09 am Chief Complaint Admit Date MONTHLY EXAM May 09, 2024 4:31 pm LABWORK June 12, 2024 5:00am MONTHLY/ADMISSION EXAM June 20, 2024 10 :15pm LABWORK August 09, 2024 5:00a m needs to schedule esophagus stretching J jw 2024 9:09am NEW CONCERN August 27, 2024 10:4 0am Chief Complaint Admit Date MONTHLY EXAM May 09, 2024 4:31 pm LABWORK June 12, 2024 5:00am MONTHLY/ADMISSION EXAM June 20, 2024 10 :15pm NEW CONCERN July 17, 2024 4:45p m MONTHLY EXAM July 25, 2024 6:00 pm LABWORK August 09, 2024 5:00a m needs to schedule esophagus stretching J jw 2024 9:09am Additional Source Comments INFORMATION SOURCE (unrecogn ized section and content) DATE CREATED AUTHOR 03/21/2019 [facility] DATE CREATED AUTHOR AUTHOR'S ORGANIZ ATION 07/01/2019 [facility] DATE CREATED AUTHOR AUTHOR'S ORGANIZ ATION 10/07/2019 [facility] DATE CREATED AUTHOR AUTHOR'S ORGANIZ ATION 12/02/2019 [facility] DATE CREATED AUTHOR AUTHOR'S ORGANIZ ATION 05/16/2021 [facility] DATE CREATED AUTHOR AUTHOR'S ORGANIZ ATION 08/23/2024 [facility] DATE CREATED AUTHOR AUTHOR'S ORGANIZ ATION 08/29/2024 [facility] Reason for Visit (unrecogniz ed section and content) Reason Comments Other transfer. Dx with ch olecystitis Specialty Diagnoses / Procedures Referred By Elzbieta t Referred To Contact Cardiology Diagnoses Other specified symptoms and signs involving the circulatory and respiratory systems Procedures Vascular US carotid artery duplex bilateral Alisson Morton, DO [address] [place] [address] Referral ID Status Reason Start Date Expiration Date Visits Requested Visits Authorized [id number] Pending Review Perform Procedure 05/27/2022 11/23/2022 1 1 Reason Comments Leg Swelling Specialty Diagnoses / Procedures Referred By Contac t Referred To Contact Diagnoses Hyponatremia Anemia Hepatitis Procedures . Alisson Morton, DO [address] [place] [address] [facility] [address] [place] [address] Referral ID Status Reason Start Date Expiration Date Visits Re quested Visits Authorized [id number] 1 1 Reason Comments Med Refill Reason Comments 1 Year Follow-up Coronary Artery Disease Reason Onset Date Comments Cardiac Clearance 12/09/2022 Reason Onset Date Comments Fall 07/20/2023 Reason Onset Date Comments Cardiac Clearance 07/23/2023 Specialty Diagnoses / Procedures Referred By Contac t Referred To Contact Diagnoses Dysphagia Dysphagia [R13.10] Procedures NM ESOPHAGOGASTRODUODENOSCOPY TRANSORAL DIAGNOSTIC EGD DIAGNOSTIC Mykel Powell MD [address] [place] [address] [place] [id number] [facility] [address] [place] [phone] Referral ID Status Reason Start Date Expiration Date Visits Re quested Visits Authorized [id number] 1 1 Reason Onset Date Comments Medication [...] Care Teams (unrecognized sec tion and content) Security Threat Analyst Relationship Specialty Start Date End Date Alisson Morton, DO [address] [place] [address] PCP - General 09/05/18 Team Status: Active Member Role Status Dates Dr. Alisson Morton , DO Family Provider Active Dr. Alisson Morton , DO Primary Care Provider Active Team Status: Active Member Role Status Dates Dr. Alisson Morton , DO Primary Care Provider Active Dr. Zonia Benitez , DO Emergency Provider Active Dr. oJvi Pack MD Admit Provi ailyn, Attending Provider, Other Provider Active Team Status: Active Member Role Status Dates Dr. Alisson Morton , DO Primary Care Provider Active Dr. Zonia Benitez , DO Emergency Provider Active Dr. Jovi Pack MD Admit Provider, Other Pro vider Active Dr. Roque Herrera , DO Attending Provider Active Team Status: Active Member Role Status Dates Dr. Alisson Morton , DO Primary Care Provider Active Dr. Roque Herrera , DO Attending Provider Active Team Status: Inactive Member Role Status Dates Dr. Alisson Morton , DO Primary Care Provider Active Dr. Zonia Benitez , DO Emergency Provider Active Dr. Jovi Pack MD Admit Provider, Attending Provider Active Team Status: Active Member Role Status Dates Dr. Alisson Morton , DO Primary Care Provider Active Dr. Deonte Guardado MD Attending Provider Active Dr. Jovi Pack MD Referring Provider Active Team Status: Inactive Member Role Status Dates Dr. Alisson Morton , DO Primary Care Provider Active Dr. Xavier Younger MD Emergency Provider Active Security Threat Analyst Relationship Specialty Start Date End Date [facility] [address] [place] [address] PCP - General 02/10/22 Alisson Morton DO Family Medicine 01/12/22 Security Threat Analyst Relationship Specialty Start Date End Date [facility] [address] [place] [address] PCP - General 02/10/22 06/14/22 Alisson Morton DO [address] [place] [phone] PCP - General Family Medicine 06/15/22 Alisson Morton DO Family Medicine 01/12/22 Security Threat Analyst Relationship Specialty Start Date End Date Alisson Morton DO [address] [place] [address] [place] [address] PCP - General Family Medicine 06/15/22 Alisson Morton DO Family Medicine 01/12/22 Security Threat Analyst Relationship Specialty Start Date End Date Alisson Morton DO [address] [place] [address] [place] [phone] PCP - General Family Medicine 06/15/22 Alisson Morton DO Family Medicine 01/12/22 Security Threat Analyst Relationship Specialty Start Date End Date [facility] [address] [place] [address] PCP - General 02/10/22 06/14/22 Alisson Morton DO [address] [place] [address] [place] [address] PCP - General Family Medicine 06/15/22 Alisson Morton DO Family Medicine 01/12/22 Security Threat Analyst Relationship Specialty Start Date End Date Alisson Morton DO [address] [place] [address] [place] [address] PCP - General Family Medicine 06/15/22 Alisson Morton DO Family Medicine 01/12/22 Security Threat Analyst Relationship Specialty Start Date End Date Alisson Morton DO [address] [place] [address] [place] [address] PCP - General Family Medicine 06/15/22 Alisson Morton DO Family Medicine 01/12/22 Team Status: Inactive Member Role Status Dates Dr. Alisson Morton , DO Primary Care Provider Active Fallon Mcclendon NP, RADIO SCRIPT WRITER-C Attending Provider Active Team Status: Inactive Member Role Status Dates Dr. Alisson Morton , DO Primary Care Provider Active Dr. Anabel Duvall MD Attending Provider Active Team Status: Active Member Role Status Dates Dr. Alisson Morton DO Primary Care Provider Active Anabel WALSH MD Attending Provider Active Team Status: Active Member Role Status Dates Dr. Alisson Morton DO Primary Care Provider Active Fallon WALSH NP-C Attending Provider, Referrin g Provider Active Team Status: Inactive Member Role Status Dates Dr. Alisson Morton DO Primary Care Pro vider, Attending Provider, Referring Provider Active Security Threat Analyst Relationship Specialty Start Date End Date Alisson Morton DO [address] [place] [address] [place] [phone] PCP - General Family Medicine 06/15/22 Alisson Morton DO Family Medicine 01/12/22 Security Threat Analyst Relationship Specialty Start Date End Date Alisson Morton DO [address] [place] [address] [place] [phone] PCP - General Family Medicine 06/15/22 Alisson Morton DO Family Medicine 01/12/22 Team Status: Active Member Role Status Dates Dr. Alisson Morton , DO Primary Care Provider, Referri ng Provider Active Dr. Roque Herrera , DO Attending Provider, Other Prov ider Active Team Status: Inactive Member Role Status Dates Dr. Alisson Morton , DO Primary Care Provider, Referri ng Provider Active Dr. Roque Herrera , DO Attending Provider Active Team Status: Inactive Member Role Status Dates Dr. Alisson Morton , DO Primary Care Provider Active Memo Naqvi MD Emergency Provider Active Security Threat Analyst Relationship Specialty Start Date End Date Alisson Morton DO [address] [place] [address] [place] [address] PCP - General Family Medicine 06/15/22 Alisson Morton DO [facility] Medicine 01/12/22 Security Threat Analyst Relationship Specialty Start Date End Date Alisson Morton DO [address] [place] [address] [place] [phone] PCP - General Family Medicine 06/15/22 Alisson Morton DO Family Medicine 01/12/22 Security Threat Analyst Relationship Specialty Start Date End Date Alisson Morton DO [address] [place] [address] [place] [address] PCP - General Family Medicine 06/15/22 Alisson Morton DO Family Medicine 01/12/22 Security Threat Analyst Relationship Specialty Start Date End Date Alisson Morton DO [address] [place] [address] [place] [address] PCP - General Family Medicine 06/15/22 Alisson Morton DO Family Medicine 01/12/22 Security Threat Analyst Relationship Specialty Start Date End Date No, Pcp [address] [place] [address] PCP - General 02/10/22 Alisson Morton, DO [address] [place] [address] [place] [address] Family Medicine 01/12/22 Security Threat Analyst Relationship Specialty Start Date End Date No, Pcp [address] [place] [address] PCP - General 02/10/22 Alisson Morton, Family Medicine 01/12/22 Security Threat Analyst Relationship Specialty Start Date End Date No, Pcp [address] [place] [address] PCP - General 02/10/22 Alisson Morton, DO Family Medicine 01/12/22 Security Threat Analyst Relationship Specialty Start Date End Date No, Pcp [address] [place] [address] PCP - General 02/10/22 Alisson Morton, Family Medicine 01/12/22 Security Threat Analyst Relationship Specialty Start Date End Date No, Pcp [address] [place] [address] PCP - General 02/10/22 Alisson Morton, DO Family Medicine 01/12/22 Team Status: Active Member Role Status Dates Dr. Alisson Morton DO Primary Care Provider Active Start: March 16, 2024 Anabel WALSH MD Attending Provider Active Start: March 16, 2024 Team Status: Inactive Member Role Status Dates Dr. Alisson Morton DO Primary Care Provider Active Start: March 21, 2024 End: March 21, 2024 Dr. Anabel Duvall MD Attending Provider Active Start: March 21, 2024 End: March 21, 2024 Team Status: Inactive Member Role Status Dates Dr. Alisson Morton DO Primary Care Provider Active Start: April 10, 2024 End: April 10, 2024 Fallon Mcclendon RADIO SCRIPT WRITER, RADIO SCRIPT WRITER-C Attending Provider Active Start: April 10, 2024 End: April 10, 2024 Team Status: Inactive Member Role Status Dates Dr. Alisson Motron DO Primary Care Provider Active Start: May 09, 2024 End: May 09, 2024 Dr. Anabel Duvall MD Attending Provider Active Start: May 09, 2024 End: May 09, 2024 Team Status: Active Member Role Status Dates Dr. Alisson Morton DO Primary Care Provider Active Start: June 12, 2024 Anabel WALSH MD Attending Provider Active Start: June 12, 2024 Team Status: Active Member Role/Relationship Status Dates Dr. Alisson Morton DO Family Provider Active Dr. Alisson Morton DO Primary Care Provider Active Team Status: Inactive Member Role/Relationship Status Dates Dr. Alisson Morton DO Primary Care Provider Active Start: May 09, 2024 End: May 09, 2024 Dr. Anabel Duvall MD Attending Provider Active Start: May 09, 2024 End: May 09, 2024 Team Status: Inactive Member Role/Relationship Status Dates Dr. Alisson Morton DO Primary Care Provider Active Start: June 12, 2024 End: June 12, 2024 Anabel WALSH MD Attending Provider Active Start: June 12, 2024 End: June 12, 2024 Team Status: Active Member Role/Relationship Status Dates Dr. Alisson Morton DO Primary Care Provider Active Start: August 09, 2024 Anabel WALSH MD Attending Provider Active Start: August 09, 2024 Team Status: Active Member Role/Relationship Status Dates Dr. Alisson Morton DO Primary Care Provider Active Start: August 18, 2024 Anabel WALSH MD Attending Provider Active Start: August 18, 2024 Team Status: Inactive Member Role/Relationship Status Dates Dr. Alisson Morton DO Primary Care Provider Active Start: August 18, 2024 End: August 18, 2024 Dr. Alisson Morton DO Referring Provider Active Start: August 18, 2024 End: August 18, 2024 DREW Cerna Attending Provider Active S tart: August 18, 2024 End: August 18, 2024 Security Threat Analyst Relationship Specialty Start Date End Date Alisson Morton DO [address] [place] [address] [place] [address] PCP - General Family Medicine 06/15/22 Alisson Morton DO Family Medicine 01/12/22 Team Status: Inactive Member Role/Relationship Status Dates Dr. Alisson Morton DO Primary Care Provider Active Start: June 20, 2024 End: June 20, 2024 Dr. Anabel Duvall MD Attending Provider Active Start: June 20, 2024 End: June 20, 2024 Team Status: Active Member Role/Relationship Status Dates Dr. Alisson Morton DO Primary Care Provider Active Start: August 09, 2024 Anabel WALSH MD Attending Provider Active Start: August 09, 2024 Team Status: Active Member Role/Relationship Status Dates Dr. Alisson Morton DO Primary Care Provider Active Start: August 18, 2024 Anabel WALSH MD Attending Provider Active Start: August 18, 2024 Team Status: Inactive Member Role/Relationship Status Dates Dr. Alisson Morton DO Primary Care Provider Active Start: August 18, 2024 End: August 18, 2024 Dr. Alisson Morton DO Referring Provider Active Start: August 18, 2024 End: August 18, 2024 DREW Cerna Attending Provider Active S tart: August 18, 2024 End: August 18, 2024 Team Status: Inactive Member Role/Relationship Status Dates Dr. Alisson Morton DO Primary Care Provider Active Start: August 27, 2024 End: August 27, 2024 Osmar Mendoza NP, [place] Attending Provider Active S tart: August 27, 2024 End: August 27, 2024 Team Status: Inactive Member Role/Relationship Status Dates Dr. Alisson Morton DO Primary Care Provider Active Start: July 17, 2024 End: July 17, 2024 Osmar Mendoza NP, RADIO SCRIPT WRITER-C Attending Provider Active S tart: July 17, 2024 End: July 17, 2024 Team Status: Inactive Member Role/Relationship Status Dates Dr. Alisson Morton DO Primary Care Provider Active Start: July 25, 2024 End: July 25, 2024 Fallon Mcclendon NP, RADIO SCRIPT WRITER-C Attending Provider Active Start: July 25, 2024 End: July 25, 2024 Team Status: Active Member Role/Relationship Status Dates Dr. Alisson Morton DO Primary Care Provider Active Start: August 09, 2024 Anabel WALSH MD Attending Provider Active Start: August 09, 2024 Team Status: Active Member Role/Relationship Status Dates Dr. Alisson Morton DO Primary Care Provider Active Start: August 18, 2024 Anabel WALSH MD Attending Provider Active Start: August 18, 2024 Team Status: Inactive Member Role/Relationship Status Dates Dr. Alisson Morton DO Primary Care Provider Active Start: August 18, 2024 End: August 18, 2024 Dr. Alisson Morton DO Referring Provider Active Start: August 18, 2024 End: August 18, 2024 Brittany Courtney NP-C Attending Provider Active S tart: August 18, 2024 End: August 18, 2024 Scheduled Active and Recently Administ ered Medications (unrecognized section and content) Medication Order 06/14/2022 06/15/2022 06/16/2022 dicyclomine (Bentyl) capsule 10 mg 10 mg, Oral, 3 times daily, First dose on 06/13/22 at 1645 0832 (Given - Provider: Lennie Aguilar RN)1622 (Given - Provider: Lennie Aguilar RN)2118 (Given - Provider: Ashley Gutierrez RN) 0859 (Given - Provider: Lennie Aguilar RN)1607 (Given - Provider: Lennie Aguilar RN)203 (Given - Provider: Fiordaliza Del Castillo RN) 0912 (Given - Provider: Nicole Boles RN)1357 (Given - Provider: Nicole Boles RN)2100 (Canceled Entry - Provider: Automatic Discharge Provider - Comment: Automatically canceled at discontinue of medication order) fluticasone (Flovent) 220 MCG/ACT inhaler 2 puff 2 puff, Inhalation, 2 times daily, First dose on 06/13/22 at 2000, Rinse mouth with water after [...] Nicole Boles RN)0935 (Stopped - Provider: Nicole Boles RN) memantine (Namenda) tablet 5 mg 5 mg, Oral, 2 times daily, First dose on 06/13/22 at 2100 0832 (Given - Provider: Lennie Aguilar RN)2118 (Given - Provider: Ashley Gutierrez RN) 0857 (Given - Provider: Lennie Aguilar RN)2030 (Given [...] RN) 0912 (Given - Provider: Nicole Boles RN)1717 (Given - Provider: Nicole Boles RN) metoprolol tartrate (Lopressor) tablet 25 mg 25 mg, Oral, 2 times daily, First dose on 06/13/22 at 2100 0832 (Given - Provider: Lennie Aguilar RN)2118 (Given - Provider: Ashley Gutierrez, ELEAZAR) 0859 (Given - Provider: Lennie Aguilar RN)2030 (Given - Provider: Fiordaliza Del Castillo, ELEAZAR) 09 (Given - Provider: Nicole Boles RN)2099 (Canceled Entry - Provider: Automatic Discharge Provider - Comment: Automatically canceled at discontinue of medication order) mirtazapine (Remeron) tablet 15 mg 15 mg, Oral, Nightly, First dose on 06/13/22 at 2100 211 (Given - Provider: Ashley Gutierrez, ELEAZAR) 2029 (Given - Provider: Fiordaliza Del Castillo, ELEAZAR) 2099 (Canceled Entry - Provider: Automatic Discharge Provider - Comment: Automatically canceled at discontinue of medication order) pantoprazole (ProtoNix) EC tablet 40 mg 40 mg, Oral, Daily before breakfast, First dose on 06/14/22 at 0700, Do not crush, chew, or split. 0832 (Given - Provider: Lennie Aguilar RN) 0521 (Given - Provider: Ashley Gutierrez, ELEAZAR) 0528 (Given - Provider: Fiordaliza Del Castillo, ELEAZAR) potassium chloride CR (Klor-Con M10) ER tablet 10 mEq 10 mEq, Oral, 2 times daily, First dose on 06/13/22 at 2100, Best given with food and plenty of water to minimize gastric irritation. Do not crush or chew. 0831 (Given - Provider: Lennie Aguilar RN)2117 (Given - Provider: Ashley Gutierrez, ELEAZAR) 0859 (Given - Provider: Lennie Aguilar RN)2029 (Given - Provider: Fiordaliza Del Castillo, ELEAZAR) 0912 (Given - Provider: Nicole Boles, ELEAZAR)2100 (Canceled [...] daily, First dose on Wed06/13/22 at 2100 0833 (Given - Provider: Lennie Aguilar RN)2120 (Given - Provider: Ashley Gutierrez RN) 0858 (Given - Provider: Lennie Aguilar RN)2030 (Given - Provider: Fiordaliza Del Castillo, ELEAZAR) 0915 (Given - Provider: Nicole Boles, ELEAZAR)2100 (Canceled Entry - Provider: Automatic Discharge Provider - Comment: Automatically canceled at discontinue of medication order) sertraline (Zoloft) tablet 50 mg 50 mg, Oral, Daily, First dose on Wed06/13/22 at 1645 0832 (Given - Provider: Lennie Aguilar RN) 0859 (Given - Provider: Lennie Aguilar RN) 0912 (Given - Provider: Nicole Boles, ELEAZAR) torsemide (Demadex) tablet 20 mg 20 mg, Oral, Daily, First dose on Wed06/13/22 at 1645 0832 (Given - Provider: Lennie Aguilar RN) 0857 (Given - Provider: Lennie Aguilar RN) 0912 (Given - Provider: Nicole Boles RN) trospium (Sanctura) tablet 20 mg 20 mg, Oral, Daily, First dose on 06/13/22 at 1645, Substituted for oxybutynin (DITROPAN); fesoterodine (TOVIAZ); darifenacin (ENABLEX); solifenacin (VESICARE); tolterodine IR (DETROL); tolterodine ER (DETROL LA). 0831 (Given - Provider: Lennie Aguilar RN) 0857 (Given - Provider: Lennie Aguilar RN) 0912 (Given - Provider: Nicole Boles RN) ursodiol (Actigall) capsule 300 mg 300 mg, Oral, 2 times daily, First dose on 06/13/22 at 2100 0833 (Given - Provider: Lennie Aguilar RN)2120 (Given - Provider: Ashley Gutierrez RN) 0857 (Given - Provider: Lennie Aguilar RN)203 (Given - Provider: Fiordaliza Del Castillo, ELEAZAR) 0915 (Given - Provider: Nicole Boles RN)2100 (Canceled [...] or prosecute any alcohol or drug abuse patient.[facility] FOR RECORDS PERTAINING TO PATIENTS [...] BE BASED ON THE PRIMARY CLINICAL RECORDS. [facility]. provides no warranty or guarantee of the accuracy or completeness of information in this document.
[2024-09-14 08:56] LABS: Hematocrit 30.0 % (37-47); Hemoglobin 9.7 g/dL (12.0-15.0); Immature Granulocytes Count 0.020 X10^3/uL (0.0-0.0); Mean Corp Hgb Conc 32.3 g/dL (32-36); Mean Corpuscular Volume 88.8 fL (81-99); Mean Platelet Vol. 12.3 fl (6.2-12.0); NRBC Flagged by Analyzer 0 % (0-5); Platelet Count 197 K/mm3 (150-450); RBC Distribution Width CV 13.1 % (11.6-14.6); RBC Distribution Width SD 42.5 fl (35.1-43.9); Red Blood Count 3.38 M/mm3 (4.2-5.4); White Blood Count 5.0 K/mm3 (4.4-11.0)
[2024-09-14 09:05] LABS: AST(SGOT) 64 U/L (<=31); Alanine Aminotransfer ALT/SGPT 31 U/L (<=34); Albumin, Serum 3.4 g/dL (3.4-4.8); Alkaline Phosphatase 391 U/L (35-104); Anion Gap 11 (5-15); BUN 20 mg/dL (4-19); BUN/Creat Ratio 23.3 RATIO (10-20); Calcium,Total 8.9 mg/dL (7.6-11.0); Carbon Dioxide 26.7 mmol/L (21.0-32.0); Chloride 103 mmol/L (98-108); Globulin 3.9 g/dL (2.2-4.2); Glucose 109 mg/dL (70-99); Potassium 3.9 mmol/L (3.3-5.1)
== END ==
LOC: OLS.WHLCAR 04:00
PROVIDERS: PCP Family Medicine; Referring Provider Internal Medicine; Visit Provider Internal Medicine
DX: E11.9 Type 2 diabetes mellitus without complications (principal); G30.1 Alzheimer's disease with late onset; F02.811 Dementia in other diseases classified elsewhere, unspecified severity, with agitation; I48.0 Paroxysmal atrial fibrillation
CPT/HCPCS: 36415; 80053; 83036; 85025

== ENCOUNTER 2024-10-05 07:18 | Day surgery (SDC) | payer MEDICARE, OTHER, SELFPAY ==
[2024-10-05] VITALS (9 sets, daily range): BP systolic 102–151; BP diastolic 63–76; PULSE 69–76; RESP 16–18; TEMP 36.2–36.5; O2SAT 94–100; BMI 18.1
--- OUTSIDE RECORDS SUMMARY | 2024-10-05 07:31 | XMS RPT_ITS | CCD ---
Author Organization [facility] Care Team Providers Care Science Consultant Name Role Phone Mita Morton Primary Care Provider [phone] Dr. Mita Morton Primary Care Provider Dr. Zonia Benitez Emergency Provider Dr. Jovi Pack Admit Provider Dr. Jovi Pack Attending Provider Dr. Jovi Pack Other Provider Dr. Roque Herrera Attending Provider Dr. Deonte Guardado Attending Provider Dr. Jovi Pack Referring Provider Mita oMrton DO Unavailable [facility] Primary Care Provider Luisav ailadonis [facility] Primary Care Provider Unav ailMita Lucas DO Primary Care Provider Mita Morton DO Unavailable [phone] Mita Morton DO Primary Care Provider Dr. Mita Morton Primary Care Provider Hakan WHELAN, DREW Lehman Attending Provider Unav Dr. Anabel Freeamn Attending Provider Dr. Mita Morton Primary Care Provider Dr. Mita Morton Referring Provider Dr. Roque Herrera Attending Provider Friend, Dr. Nevarez Other Provider Unavailable Primary Care Provider Unavailabl e Esterle DO, Mita M Unavailable No, Pcp Primary Care Provider Unavailabl e Esterle DO, Mita M Unavailable Praveen DO, Dr. Mita Lima Primary Care Provider Anabel Duvall MD Attending Provider Unavailtyrone Duvall MD, Dr. Little Attending Provider Hakan JERKER-CFallon Attending Provider Praveen BORJA, Dr. Mita Lima Primary Care Provider Dr. Anabel Duvall MD Attending Provider Anabel Duvall MD Attending Provider Unavaila melany Morton DO, Dr. Mita Lima Referring Provider Sherwin JERKER-CBrittany Attending Provider ESTERLE, MITA Attending Unavailable ESTERLE, MITA Referring Unavailable ESTERLE, MITA Primary Care Unavailable ESTERLE, MITA Attending Unavailable ESTERLE, MITA Referring Unavailable ESTERLE, MITA Primary Care Unavailable TONI BEY Attending Unavailable ESTERLE, MITA Primary Care Unavailable Roof JERKER-C, Sahil Wheeler Attending Provider Kelly JERKER-C, Sahil Wheeler Attending Provider Hakan JERKER-C, Fallon Attending Provider Praveen BORJA, Dr. Mita Lima Primary Care Provider Dr. Anabel Duvall MD Attending Provider Anabel Duvall MD Referring Provider Unavaila ble Hakan JERKER-CFallon Attending Provider Anabel Duvall Attending Unavailable Esterle, Mita M Primary Care Unavailable Esterle, Mita M Primary Care Unavailable TicktonFallon Attending Unavailable Esterle, Mita M Primary Care Unavailable TicktonFallon Attending Unavailable Anabel Blevins Attending Unavailabl e Esterle, Mita M Primary Care Unavailable Esterle, Mita M Primary Care Unavailable Oleghe OLS, Efewongbe Attending Unavailabl e Esterle, Mita M Primary Care Unavailable Oleghe OLS, Efewongbe Attending Unavailabl e Oleghe OLS, Efewongbe Referring Unavailabl e Oleghe OLS, Efewongbe Attending Unavailabl e Esterle, Mita M Primary Care Unavailable Esterle, Mita M Primary Care Unavailable Oleghe OLS, Efewongbe Attending Unavailabl e Esterle, Mita M Primary Care Unavailable Fallon Mcclendon Attending Unavailable Esterle, Mita M Primary Care Unavailable Oleghe, Efewongbe Attending Unavailable Esterle, Mita M Primary Care Unavailable López Rodriguez Attending Unavailable Esterle, Mita M Primary Care Unavailable Oleghe, Efewongbe Attending Unavailable Esterle, Mita M Referring Unavailable Esterle, Mita M Primary Care Unavailable Brittany Courtney Attending Unavailable Esterle, Mita M Primary Care Unavailable Oleghe, Efewongbe Attending Unavailable Esterle, Mita M Referring Unavailable Esterle, Mita M Primary Care Unavailable Erich Barrett Attending Unavailable Fallon Mcclendon Attending Unavailable Esterle, Mita M Primary Care Unavailable Esterle, Mita M Primary Care Unavailable Fallon Mcclendon Attending Unavailable Esterle, Mita M Primary Care Unavailable Fallon Mcclendon Attending Unavailable Roque Herrera Attending Unavailable Esterle, Mita M Primary Care Unavailable Esterle, Mita M Primary Care Unavailable Erich Barrett Referring Unavailable Erich Barrett Attending Unavailable Esterle, Mita M Primary Care Unavailable Oleghe OLS, Efewongbe Attending Unavailabl e Oleghe OLS, Efewongbe Attending Unavailabl e Esterle, Mita M Primary Care Unavailable Esterle, Mita M Primary Care Unavailable Fallon Mcclendon Attending Unavailable Esterle, Mita M Primary Care Unavailable Oleghe, Efewongbe Attending Unavailable Allergies Allergy Classification Reported Allergen(s) Allergy Type Date of Onset Reaction(s) Facility Ticagrelor (2 sources) Ticagrelor Drug Allergy 9 Shortness Of Breath [facility] Work Phone: (20 sources) Ticagrelor Drug Allergy 9 Shortness Of Breath [facility] Work Phone: (20 sources) Ticagrelor Propensity to adverse reactions 9 Shortness of breath [facility] (1 source) Ticagrelor Drug Allergy 5 [facility] Repository Medications Current Medications Medication Drug [...] mg / clavulanate 125 mg oral tablet (9 sources) Penicillin-class Antibacterial Start: 11-22-2023 Amoxicillin-Pot Clavulanate [...] Active magnesium hydroxide 80 mg/ml oral suspension (3 sources) Start : 02-11 take 30 mL by mouth once daily as needed for constipation 30 mL, Oral, DAILY PRN, Constipation, Starting 1/4/20 at 1227 First line therapy for constipation. [...] PO DAILY October 18, 2018 9:36am nystatin 687010 unt/ml oral suspension (3 sources) Polyene Antifungal Start: 05-13-2022 Nystatin Active 571600 UNIT PO EVERY 6 HOURS 56 7 [...] pantoprazole 20 mg delayed release oral tablet (12 sources) Proton Pump Inhibitor Start: 08-18-2024 take 1 tablet by mouth once daily Pantoprazole 20 mg tablet,delayed release (DR/EC) Active 20 mg PO daily August 18, 2024 12:00am Start: 09-16-2018 End: 06-16-2022 take 40 mg by mouth once daily before breakfast 40 mg, Oral, Daily before breakfast, First dose on 06/14/22 at 0700 Do not crush, chew, or split. polyethylene glycol 3350 78922 mg powder for oral solution (6 sources) [...] 2018 9:36am QUEtiapine 25 mg oral tablet (8 sources) Atypical Antipsychotic Start: 07-09-2024 take 1 [...] 2100 Start: 12-29-2021 take 1 capsule by [facility] twice daily Rivastigmine Tartrate 3 mg capsule [...] 1 tablet by mouth once daily therapeutic multivitamin-voucher examiner als (Theragran-M) tablet Take 1 tablet [...] 1 tablet, Oral, DAILY, First dose on Wed09/15/18 at 1400 torsemide 20 mg oral tablet [...] dose on Micheline 09/15/18 at 2100 B Uagnsbk-P-Jodm TABS (1 source) End: 09-15-2018 take 1 tablet by mouth once daily B Zeqyzjp-C-Grcg TABS Take 1 tablet by mouth daily [...] End: 11-09-2019 lidocaine PF 2 % injection LORazepam 0.5 mg oral tablet (6 sources) Benzodiazepine Start: 08-17-2024 End: 09-06-2024 take 1 tablet by mouth every eight hours as needed for anxiety Lorazepam 0.5 mg tablet Discontinued 0.5 mg PO .every 8 hours as needed for anxiety 20 20 0 August 17, 2024 12:00am September 05, 2024 12:00am September 06, 2024 12:07am Future refill only. 50 ml magnesium sulfate 40 mg/ml injection (2 sources) Start: 06-13-2022 End: 06-13-2022 magnesium sulfate IVPB premix 2,000 mg memantine hydrochloride 10 mg oral tablet (20 sources) O-hnabwc-K-aspartate Receptor Antagonist Start: 05-12-2022 End: 07-23-2023 take [...] Date Documented Da te Episodic/Chronic Abdominal hernia (13 sources) Hiatal hernia; Translations: [Diaphragmatic hernia without obstruction or gangrene] 02-11-2019 Episodic Abdominal pain (20 sources) Abdominal pain; Translations: [Unspecified abdominal pain] Onset: 9 09-15-2018 Episodic Acute bronchitis (7 sources) Acute bronchitis; Translations: [Acute bronchitis, unspecified] [...] Coronary arteriosclerosis in [place] artery; Translations: [Coronary atherosclerosis] Onset: 9 09-18-2018 [...] Onset: 9 10-04-2018 Chronic E Codes: Fall (8 sources) Fall; Translations: [Unspecified fall, initial encounter] 04-04-2023 Episodic Esophageal disorders (20 sources) Obstruction of esophagus; Translations: [Esophageal obstruction] Onset: 3 02-23-2022 Chronic Essential hypertension (13 sources) Hypertensive disorder; Translations: [Essential (primary) hypertension] 02-10-2019 Chronic Genitourinary symptoms and ill-defined conditions (1 source) Urinary incontinence; Translations: [Unspecified urinary incontinence] 05-11-2023 Chronic Immunizations and screening for infectious disease (12 sources) Contact with or exposure to other viral diseases; Translations: [Exposure to COVID-19 virus] 08-15-2021 Episodic Malaise and fatigue (20 sources) Tired; Translations: [Other fatigue] 06-01-2022 Episodic Nonspecific chest pain (13 sources) Atypical chest pain; Translations: [Other chest pain] 02-11-2019 Episodic Nutritional deficiencies (20 sources) Nutritional marasmus; Translations: [Unspecified severe protein-calorie malnutrition] Onset: 0 02-13-2019 Chronic Open wounds of extremities (8 sources) Laceration without foreign body of left upper arm, initial encounter; Translations: [Skin tear of left upper extremity] 04-04-2023 Episodic Other circulatory disease (12 sources) H/O: hypertension; Translations: [Personal history of [...] Onset: 9 08-15-2018 Chronic Other gastrointestinal disorders (12 sources) History of stricture of esophagus; Translations: [...] of mental health and substance abuse codes (11 sources) H/O: dementia; Translations: [Personal history of other mental and behavioral disorders] 06-01-2022 Episodic Spondylosis; intervertebral disc disorders; other back problems (1 source) Backache; Translations: [Dorsalgia, unspecified] 05-11-2023 Episodic Superficial injury; contusion (8 sources) Contusion of face; Translations: [Contusion of other part of head, initial encounter] 04-04-2023 Episodic Thyroid disorders (20 sources) Non-toxic uninodular goiter; Translations: [Thyroid nodule] Onset: 0 10-25-2019 Chronic Unclassified (10 sources) Patient encounter status; Translations: [Encounter for long-term (current) use of antiplatelets/antithro mbotics] 02-12-2019 Unclassified (2 sources) Other persistent atrial fibrillation; Translations: [Other persistent atrial fibrillation (HCC)] Onset: 2 Unclassified (1 source) Dementia in other diseases classified elsewhere, unspecified severity, with agitation; Translations: [Dementia in other diseases classified elsewhere, unspecified severity, with agitation] Onset: 5 Unclassified (1 source) Cough, unspecified; Translations: [Cough, unspecified] Onset: 4 Urinary tract infections (1 source) Urinary tract infection, site not specified; Translations: [Urinary tract infection, site not specified] Onset: 5 Episodic Viral infection (12 sources) Disease caused by 2019-nCoV; Translations: [COVID-19] [...] 08-08-2018 08-08-2018 Episodic Fluid and electrolyte disorders (15 sources) Mild dehydration; Translations: [Dehydration] Onset: 03-17-2024 06-01-2022 Episodic Other aftercare (20 sources) Patient encounter status; Translations: [prison (current) use of antithrombotics/antip latelets] Onset: 02-12-2019 02-12-2019 Episodic Other aftercare (7 sources) Long-term current use of drug therapy; Translations: [prison (current) use of antithrombotics/antip latelets] Onset: 02-12-2019 [...] mental status, unspecified] Onset: 03-17-2024 Episodic Unclassified (12 sources) h/o throat surgery 09-08-2021 Comment on above: enlarged esophagous Results Test Name Value Interpretation Reference Range Facility Absolute lymphocyte countOrd ered By: Anabel Duvall on 09-14-2024 Lymphocytes Auto (Unsp spec) [#/Vol] 1.15 10*3/uL 0.83-4.51 [facility] Absolute neutrophil countOrd ered By: Anabel Duvall on 09-14-2024 Neutrophils (Bld) [#/Vol] 3.2 10*3/uL 2.0-7.7 [facility] Anion gap in Serum or Plasma Ordered By: Anabel Duvall on 09-14-2024 Anion gap [Moles/Vol] 11 mmol/L 5-15 [facility] Automated lymphocyte count a s percentage of total leukocytesOrdered By: Anabel Duvall on 09-14-2024 Lymphocytes/100 WBC Auto (Unsp spec) 22.9 % 19-41 [facility] BUN/creatinine ratioOrdered By: Anabel Duvall on 09-14-2024 Urea nitrogen/Creatinine [Mass ratio] 23.3 mg/mg High 10-20 [facility] Basophil percentageOrdered B y: Anabel Duvall on 09-14-2024 Basophils/100 WBC (Bld) 1.2 % High 0-1 [facility] Bilirubin, totalOrdered By: Anabel Duvall on 09-14-2024 Bilirubin [Mass/Vol] 0.33 mg/dL 0.00-1.30 [facility] Carbon dioxide, total [Moles /volume] in Central venous bloodOrdered By: Anabel Duvall on 09-14-2024 CO2 [Moles/Vol] 26.7 mmol/L 21.0-32.0 [facility] Chloride assayOrdered By: Luna Duvall on 09-14-2024 Chloride [Moles/Vol] 103 mmol/L 98-108 [facility] Eosinophil percentageOrdered By: Anabel Duvall on 09-14-2024 Eosinophils/100 WBC (Bld) 3.6 % 0-5 [facility] Erythrocyte distribution wid th ratioOrdered By: Anabel Duvall on 09-14-2024 Erythrocyte distribution width (RBC) [Ratio] 13.1 % 11.6-14.6 [facility] Erythrocyte distribution wid th standard deviationOrdered By: Anabel Duvall on 09-14-2024 Erythrocyte distribution width (RBC) [Ratio] 42.5 fl 35.1-43.9 [facility] Glomerular filtration rate ( GFR) estimation/1.73 sq m using serum, plasma, or whole bOrdered By: Anabel Duvall on 09-14-2024 GFR/1.73 sq M.predicted among non-blacks MDRD (S/P/Bld) [Vol rate/Area] 68 mL/min/{1.73_m2} >60 [facility] Comment on above: mL/min/1.73m2 CKD-EP I Creatinine Equation (2020) Hematocrit Auto (Bld) [Volum e fraction]Ordered By: Anabel Duvall on 09-14-2024 Hematocrit (Bld) [Volume fraction] 30.0 % Low 37-47 [facility] Hemoglobin A1c percentageOrd ered By: Anabel Duvall on 09-14-2024 HbA1c (Bld) [Mass fraction] 6.1 % High <5.7 [facility] Comment on above: Normal < 5.7 % Predi abetic 5.7 - 6.4 % Diabetic >or= 6.5 % Please note range changes. Hemoglobin measurementOrdere d By: Anabel Duvall on 09-14-2024 Hemoglobin (Bld) [Mass/Vol] 9.7 g/dL Low 12.0-15.0 [facility] Immature granulocytes/100 WB C Auto (Bld)Ordered By: Anabel Duvall on 09-14-2024 Immature granulocytes/100 WBC (Bld) 0.400 % 0.0-0.9 [facility] Comment on above: IG% - Immature Granu locytes (promyelocytes, myelocytes and metamyelocytes) > 1% indicates that a LEFT SHIFT is Present. Laboratory - Chemistry and C hemistry - challengeOrdered By: Anabel Duvall on 09-14-2024 AST [Catalytic activity/Vol] 64 U/L High <32 [facility] MCV (mean corpuscular volume ) determinationOrdered By: Anabel Duvall on 09-14-2024 MCV (RBC) [Entitic vol] 88.8 fL 81-99 [facility] Mean corpuscular hemoglobin (MCH) determinationOrdered By: Anabel Duvall on 09-14-2024 MCH (RBC) [Entitic mass] 28.7 pg 27.0-32.0 [facility] Mean corpuscular hemoglobin concentration (MCHC) determinationOrdered By: Anabel Duvall on 09-14-2024 MCHC (RBC) [Mass/Vol] 32.3 g/dL 32-36 [facility] Mean platelet volume determi nationOrdered By: Anabel Duvall on 09-14-2024 Platelet mean volume (Bld) [Entitic vol] 12.3 fL High 6.2-12.0 [facility] Monocyte percentageOrdered B y: Anabel Duvall on 09-14-2024 Monocytes/100 WBC (Bld) 8.7 % 0-10 [facility] Neutrophil percentageOrdered By: Anabel Duvall on 09-14-2024 Neutrophils/100 WBC (Bld) 63.2 % 47-70 [facility] Nucleated red blood cell per centageOrdered By: Anabel Duvall on 09-14-2024 Nucleated RBC/100 WBC (Bld) [Ratio] 0 % 0-5 [facility] Platelet countOrdered By: Luna Duvall on 09-14-2024 Platelets (Bld) [#/Vol] 197 10*3/uL 150-450 [facility] Potassium measurement (mass/ volume)Ordered By: Anabel Duvall on 09-14-2024 Potassium (Unsp spec) [Mass/Vol] 3.9 mmol/L 3.3-5.1 [facility] RBC Auto (Bld) [#/Vol]Ordere d By: Anabel Duvall on 09-14-2024 RBC (Bld) [#/Vol] 3.38 10*6/uL Low 4.2-5.4 [facility] Serum creatinine measurement (mass/volume)Ordered By: Anabel Duvall on 09-14-2024 Creatinine [Mass/Vol] 0.86 mg/dL 0.70-1.20 [facility] Serum globulin measurementOr dered By: Anabel Duvall on 09-14-2024 Globulin (S) [Mass/Vol] 3.9 g/dL 2.2-4.2 [facility] Serum glucose measurement (m ass/volume)Ordered By: Anabel Duvall on 09-14-2024 Glucose [Mass/Vol] 109 mg/dL High 70-99 [facility] Serum or plasma alanine gtz otransferase (ALT) measurementOrdered By: Anabel Duvall on 09-14-2024 ALT [Catalytic activity/Vol] 31 U/L <35 [facility] Serum or plasma albumin blanco urement (mass/volume)Ordered By: Anabel Duvall on 09-14-2024 Albumin [Mass/Vol] 3.4 g/dL 3.4-4.8 [facility] Serum or plasma albumin/glob ulin mass ratioOrdered By: Anabel Duvall on 09-14-2024 Albumin/Globulin [Mass ratio] 0.9 {ratio} 0.9-2.4 [facility] Serum or plasma alkaline javier sphatase measurementOrdered By: Anabel Duvall on 09-14-2024 ALP [Catalytic activity/Vol] 391 U/L High 35-104 [facility] Serum or plasma calcium blanco urement (mass/volume)Ordered By: Anabel Duvall on 09-14-2024 Calcium [Mass/Vol] 8.9 mg/dL 7.6-11.0 [facility] Serum or plasma urea nitroge n measurement (mass/volume)Ordered By: Anabel Duvall on 09-14-2024 Urea nitrogen [Mass/Vol] 20 mg/dL High 4-19 [facility] Sodium levelOrdered By: Chino Duvall on 09-14-2024 Sodium [Moles/Vol] 140 mmol/L 133-145 [facility] Total proteinOrdered By: Shan Duvall on 09-14-2024 Protein [Mass/Vol] 7.3 g/dL 5.9-8.4 [facility] White blood cell (WBC) count Ordered By: Anabel Duvall on 09-14-2024 WBC (Bld) [#/Vol] 5.0 10*3/uL 4.4-11.0 [facility] Absolute lymphocyte countOrd ered By: Anabel Duvall on 08-18-2024 Lymphocytes Auto (Unsp spec) [#/Vol] 1.85 10*3/uL 0.83-4.51 [facility] Absolute neutrophil countOrd ered By: Anabel Duvall on 08-18-2024 Neutrophils (Bld) [#/Vol] 4.1 10*3/uL 2.0-7.7 [facility] Automated lymphocyte count a s percentage of total leukocytesOrdered By: Anabel Duvall on 08-18-2024 Lymphocytes/100 WBC Auto (Unsp spec) 26.5 % 19-41 [facility] Basophil percentageOrdered B y: Anabel Duvall on 08-18-2024 Basophils/100 WBC (Bld) 1.0 % 0-1 [facility] ECG 12 lead - CLINIC PERFORM EDon 08-18-2024 [facility] Undetermined Rhythm , probable sinus Low voltage in limb leads. -Old inferior infarct -Decreasing R-wave progression -may be secondary to pulmonary disease consider old anterior infarct. -Nonspecific T-abnormality. ABNORMAL [facility] Eosinophil percentageOrdered By: [place] Duvall on 08-18-2024 Eosinophils/100 WBC (Bld) 4.2 % 0-5 [facility] Erythrocyte distribution wid th ratioOrdered By: [facility] on 08-18-2024 Erythrocyte distribution width (RBC) [Ratio] 13.4 % 11.6-14.6 [facility] Erythrocyte distribution wid th standard deviationOrdered By: [facility] Du[facility] on 08-18-2024 Erythrocyte distribution width (RBC) [Ratio] 43.8 fl 35.1-43.9 [facility] Gastroenterology Visit Repor ton 08-18-[address] [facility] [address] [place] [address] OFFICE VISIT Date of Service: 08/18/24 MR#: [id number] Acct: [id number] Name: PREMA VILLALPANDO Rep #: [id number] : 1940 Provider: DREW landry Age/Sex: 83/F Location: [facility] [place] Status: Signed Intake Vital Signs 11/22/23 16:39 [...] heart disease of [place] coronary artery without angina pectoris Persistent atrial [...] HPI HPI Chief Complaint: difficulty swallowing Details: PREMA VILLALPANDO, is a 83 F who presents to the office today for FU and to schedule EGD w/dilation. EGD 01.04.23 Esophageal mucosal changes consistent with eosinophilic esophagitis. Moderate Schatzki ring. Dilated. Large hiatal hernia. Bile gastritis. No gross lesions in the duodenal bulb. Biopsies were taken with a cold forceps for evaluation of eosinophilic esophagitis. OV 07.23.23 Pt's daughter states that pt is doing well, but has really slowed down with her eating; pt's daughter states it takes her an hour to eat a sandwich. BM are normal. Continues with omeprazole. 07.30.23 EGD - Benign-appearing esophageal stenosis(endoscope could not [...] 08.18.24 OV She presents with staff from [facility]. Staff, Prema, is unfamiliar with Prema and her GI concerns; she agrees to call the facility during my exam so that I may talk with caretakers. I spoke with Sharmila French LPN and she relayed that Prema has intermittent difficulties with varying food consistencies. She will do fine with regular textures and thin liquids and then she won't. Sharmila reports that Prema just completed ST on 08.08.24 without further recommendations despite nursing staff expressing concerns with her coughing while eating on occasion. Prema does nod her head no when I asked about abdominal pain and if she feels like she has difficulty chewing and swallowing. Prema has documented dementia and I'm uncertain of its severity. ROS Const Constitutional: No fatigue, fever(s) or weight change ENT ENT: Positive for difficulty swallowing Gastro GI: Positive for abdominal pain and difficulty swallowing; No belching, bloating, change in bowel habits, change in stool character, coffee gr (more content not included)... Normal [facility] Hematocrit Auto (Bld) [Volum e fraction]Ordered By: Efewongbe Oleghe on 08-18-2024 Hematocrit (Bld) [Volume fraction] 33.3 % Low 37-47 [facility] Hemoglobin measurementOrdere d By: Anabel Duvall on 08-18-2024 Hemoglobin (Bld) [Mass/Vol] 10.7 g/dL Low 12.0-15.0 [facility] Immature granulocytes/100 WB C Auto (Bld)Ordered By: Anabel Duvall on 08-18-2024 Immature granulocytes/100 WBC (Bld) 0.300 % 0.0-0.9 [facility] Comment on above: IG% - Immature Granu locytes (promyelocytes, myelocytes and metamyelocytes) > 1% indicates that a LEFT SHIFT is Present. MCV (mean corpuscular volume ) determinationOrdered By: nav Duvall on 08-18-2024 MCV (RBC) [Entitic vol] 89.3 fL 81-99 [facility] Mean corpuscular hemoglobin (MCH) determinationOrdered By: [place] Duvall on 08-18-2024 MCH (RBC) [Entitic mass] 28.7 pg 27.0-32.0 [facility] Mean corpuscular hemoglobin concentration (MCHC) determinationOrdered By: [place] Duvall on 08-18-2024 MCHC (RBC) [Mass/Vol] 32.1 g/dL 32-36 [facility] Mean platelet volume determi nationOrdered By: nav Duvall on 08-18-2024 Platelet mean volume (Bld) [Entitic vol] 12.2 fL High 6.2-12.0 [facility] Monocyte percentageOrdered B y: Anabel Duvall on 08-18-2024 Monocytes/100 WBC (Bld) 8.6 % 0-10 [facility] Neutrophil percentageOrdered By: [place] Duvall on 08-18-2024 Neutrophils/100 WBC (Bld) 59.4 % 47-70 [facility] Nucleated red blood cell per centageOrdered By: [place] Duvall on 08-18-2024 Nucleated RBC/100 WBC (Bld) [Ratio] 0 % 0-5 [facility] Office Visiton 08-18-2024 Follow-up visit [id number] Jayna Villalpando 1940 F Date Provider Department Center 08/18/2024 [id number]-[facility] CV Kira Family History Problem Relation Age of Onset High Blood Pressure Mother Heart disease Brother Cancer Brother Coronary artery disease Brother High Blood Pressure Brother Diabetes Brother Family Status - Relation Status Age at Mother Father Brother Level of Service:25776 [place] OFFICE/OUTPATIENT ESTABLISHED MOD MDM 30 MIN Reason for Visit and Comments: 1 Year Follow-up [670] Coronary Artery Disease [187] Normal [facility] Platelet countOrdered By: Luna Duvall on 08-18-2024 Platelets (Bld) [#/Vol] 202 10*3/uL 150-450 [facility] Progress Noteon 08-18-2024 Progress Note [facility] Cardiology [facility] - [place] [address] [facility] [address] [facility] [id number] Dept: [phone] Dept Visit type: Established : 1940 Chief Complaint: Chief Complaint Patient presents with 1 Year Follow-up Coronary Artery Disease History of Present Illness: Prema Villalpando is a 83 y.o. female who is here in follow-up with her daughter. She has advanced dementia. She now lives in a senior living. There have not been complaints of chest [...] 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 2. Persistent atrial fibrillation (HCC) 3. Mixed hyperlipidemia 1. Coronary artery disease: She has a history of remote stenting. She is doing well with no symptoms of angina per the senior living. Continued medical therapy is recommended. 2. History of prior atrial fibrillation: She has not had any documented recurrence. She is not anticoagulated due to risks. 3. Hyperlipidemia: On therapy. 4. Advanced dementia. [1] Past Medical History: Diagnosis Date Anemia Anxiety GERD (gastroesophageal reflux disease) H/O heart artery stent 08/04/2018 History of blood transfusion Hx of blood clots (more content not included)... Normal [facility] RBC Auto (Bld) [#/Vol]Ordere d By: Anabel Duvall on 08-18-2024 RBC (Bld) [#/Vol] 3.73 10*6/uL Low 4.2-5.4 [facility] White blood cell (WBC) count Ordered By: Anabel Duvall on 08-18-2024 WBC (Bld) [#/Vol] 7.0 10*3/uL 4.4-11.0 [facility] Bilirubin Test strip Ql (U)O rdered By: Anabel Duvall on 08-17-2024 Bilirubin Ql (U) Negative Negative [facility] Ketones Test strip Ql (U)Ord ered By: Anabel Duvall on 08-17-2024 Ketones Ql (U) Negative Negative [facility] Microscopic analysis of urin e for red blood cells (RBC)Ordered By: Anabel Duvall on 08-17-2024 Microscopic analysis of urine for red blood cells (RBC) 0 SEEN /hpf 0-5 [facility] Mucus LM Ql (Urine sed)Order ed By: Anabel Duvall on 08-17-2024 Mucus Ql (Urine sed) 0 SEEN /hpf [facility] Nitrite Test strip Ql (U)Ord ered By: Anabel Duvall on 08-17-2024 Nitrite Ql (U) Negative Negative [facility] Protein Test strip Ql (U)Ord ered By: Anabel Duvall on 08-17-2024 Protein Ql (U) 15 mg/dl High Negative [facility] Squamous epithelial cells de tection in urine sediment by light microscopyOrdered By: Anabel Duvall on 08-17-2024 Epithelial cells.squamous LM Ql (Urine sed) 0-5 SEEN /hpf 5-10 [facility] Urine clarityOrdered By: Shan Duvall on 08-17-2024 Clarity (U) Sl. Cloudy Clear [facility] Urine color determinationOrd ered By: Anabel Duvall on 08-17-2024 Color (U) Yellow Yellow [facility] Urine cultureOrdered By: Shan Duvall on 08-17-2024 Bacteria identified Cx Nom (U) Escherichia coli Abnormal [facility] Urine glucose detectionOrder ed By: Anabel Duvall on 08-17-2024 Glucose Ql (U) Normal mg/dl Normal [facility] Urine leukocyte esterase det ection by dipstickOrdered By: Anabel Duvall on 08-17-2024 Leukocyte esterase Test strip Ql (U) 500 /ul High Negative [facility] Urine pHOrdered By: Yoseph Duvall on 08-17-2024 pH (U) 6.0 [pH] 5.0 - 8.0 [facility] Urine sediment bacteria coun t by microscopy (number/high power field)Ordered By: Lunakunjulijono Maddengracejuana on 08-17-2024 Bacteria LM.HPF (Urine sed) [#/Area] 2 /[HPF] None Seen [facility] Urine specific gravity measu rementOrdered By: kunolesya Martinezjuana on 08-17-2024 Specific gravity (U) [Rel density] 1.015 1.002-1.030 [facility] Urine urobilinogen measureme ntOrdered By: Chinojulijono Maddengracejuana on 08-17-2024 Urobilinogen Ql (U) Normal mg/dl Normal [facility] White blood cell countOrdere d By: kunjulijono Maddengracejuana on 08-17-2024 White blood cell count 25-50 SEEN /hpf 0-5 [facility] Absolute lymphocyte countOrd ered By: nav Chanogracejuana on 08-09-2024 Lymphocytes Auto (Unsp spec) [#/Vol] 1.22 10*3/uL 0.83-4.51 [facility] Absolute neutrophil countOrd ered By: kundownsvillejono Maddengracejuana on 08-09-2024 Neutrophils (Bld) [#/Vol] 2.7 10*3/uL 2.0-7.7 [facility] Automated lymphocyte count a s percentage of total leukocytesOrdered By: Chinojulijono Maddengracejuana on 08-09-2024 Lymphocytes/100 WBC Auto (Unsp spec) 27.1 % 19-41 [facility] Basophil percentageOrdered B y: Anabel Duvall on 08-09-2024 Basophils/100 WBC (Bld) 0.9 % 0-1 [facility] Eosinophil percentageOrdered By: kundownsvillejono Maddengracejuana on 08-09-2024 Eosinophils/100 WBC (Bld) 3.8 % 0-5 [facility] Erythrocyte distribution wid th ratioOrdered By: kunjulijono Maddengracejuana on 08-09-2024 Erythrocyte distribution width (RBC) [Ratio] 13.3 % 11.6-14.6 [facility] Erythrocyte distribution wid th standard deviationOrdered By: kundownsvillejono Duvall on 08-09-2024 Erythrocyte distribution width (RBC) [Ratio] 43.3 fl 35.1-43.9 [facility] Hematocrit Auto (Bld) [Volum e fraction]Ordered By: Anabel Duvall on 08-09-2024 Hematocrit (Bld) [Volume fraction] 30.2 % Low 37-47 [facility] Hemoglobin measurementOrdere d By: Anabel Duvall on 08-09-2024 Hemoglobin (Bld) [Mass/Vol] 9.9 g/dL Low 12.0-15.0 [facility] Immature granulocytes/100 WB C Auto (Bld)Ordered By: kundownsvillejono Duvall on 08-09-2024 Immature granulocytes/100 WBC (Bld) 0.200 % 0.0-0.9 [facility] Comment on above: IG% - Immature Granu locytes (promyelocytes, myelocytes and metamyelocytes) > 1% indicates that a LEFT SHIFT is Present. MCV (mean corpuscular volume ) determinationOrdered By: Anabel Duvall on 08-09-2024 MCV (RBC) [Entitic vol] 88.6 fL 81-99 [facility] Mean corpuscular hemoglobin (MCH) determinationOrdered By: kundownsvillejono Duvall on 08-09-2024 MCH (RBC) [Entitic mass] 29.0 pg 27.0-32.0 [facility] Mean corpuscular hemoglobin concentration (MCHC) determinationOrdered By: Anabel Duvall on 08-09-2024 MCHC (RBC) [Mass/Vol] 32.8 g/dL 32-36 [facility] Mean platelet volume determi nationOrdered By: Anabel Duvall on 08-09-2024 Platelet mean volume (Bld) [Entitic vol] 12.1 fL High 6.2-12.0 [facility] Monocyte percentageOrdered B y: Anabel Duvall on 08-09-2024 Monocytes/100 WBC (Bld) 9.1 % 0-10 [facility] Neutrophil percentageOrdered By: kundownsvillejono Duvall on 08-09-2024 Neutrophils/100 WBC (Bld) 58.9 % 47-70 [facility] Nucleated red blood cell per centageOrdered By: nav Duvall on 07-02-2025 Nucleated RBC/100 WBC (Bld) [Ratio] 0 % 0-5 [facility] Platelet countOrdered By: Luna Duvall on 08-09-2024 Platelets (Bld) [#/Vol] 164 10*3/uL 150-450 [facility] RBC Auto (Bld) [#/Vol]Ordere d By: Anabel Duvall on 08-09-2024 RBC (Bld) [#/Vol] 3.41 10*6/uL Low 4.2-5.4 [facility] White blood cell (WBC) count Ordered By: Anabel Duvall on 08-09-2024 WBC (Bld) [#/Vol] 4.5 10*3/uL 4.4-11.0 [facility] Absolute lymphocyte countOrd ered By: Anabel Duvall on 06-12-2024 Lymphocytes Auto (Unsp spec) [#/Vol] 1.40 10*3/uL 0.83-4.51 [facility] Absolute neutrophil countOrd ered By: Anabel Duvall on 06-12-2024 Neutrophils (Bld) [#/Vol] 2.6 10*3/uL 2.0-7.7 [facility] Anion gap in Serum or Plasma Ordered By: Anabel Duvall on 06-12-2024 Anion gap [Moles/Vol] 10 mmol/L 5-15 [facility] Automated lymphocyte count a s percentage of total leukocytesOrdered By: Anabel Duvall on 06-12-2024 Lymphocytes/100 WBC Auto (Unsp spec) 30.2 % 19-41 [facility] BUN/creatinine ratioOrdered By: Anabel Duvall on 06-12-2024 Urea nitrogen/Creatinine [Mass ratio] 22.8 mg/mg High 10-20 [facility] Basophil percentageOrdered B y: Anabel Duvall on 06-12-2024 Basophils/100 WBC (Bld) 1.1 % High 0-1 [facility] Bilirubin, totalOrdered By: Anabel Duvall on 06-12-2024 Bilirubin [Mass/Vol] 0.40 mg/dL 0.00-1.30 [facility] Calculated very low density lipoprotein (VLDL) cholesterol measurementOrdered By: Anabel Duvall on 06-12-2024 Calculated very low density lipoprotein (VLDL) cholesterol measurement 15 mg/dL 5-40 [facility] Carbon dioxide, total [Moles /volume] in Central venous bloodOrdered By: Anabel Duvall on 06-12-2024 CO2 [Moles/Vol] 25.5 mmol/L 21.0-32.0 [facility] Chloride assayOrdered By: Luna Duvall on 06-12-2024 Chloride [Moles/Vol] 103 mmol/L 98-108 [facility] Eosinophil percentageOrdered By: Anabel Duvall on 06-12-2024 Eosinophils/100 WBC (Bld) 5.0 % 0-5 [facility] Erythrocyte distribution wid th ratioOrdered By: nav Duvall on 06-12-2024 Erythrocyte distribution width (RBC) [Ratio] 13.8 % 11.6-14.6 [facility] Erythrocyte distribution wid th standard deviationOrdered By: Anabel Duvall on 06-12-2024 Erythrocyte distribution width (RBC) [Ratio] 43.5 fl 35.1-43.9 [facility] Glomerular filtration rate ( GFR) estimation/1.73 sq m using serum, plasma, or whole bOrdered By: Anabel Duvall on 06-12-2024 GFR/1.73 sq M.predicted among non-blacks MDRD (S/P/Bld) [Vol rate/Area] 62 mL/min/{1.73_m2} >60 [facility] Comment on above: mL/min/1.73m2 CKD-EP I Creatinine Equation (2020) Hematocrit Auto (Bld) [Volum e fraction]Ordered By: Anabel Duvall on 06-12-2024 Hematocrit (Bld) [Volume fraction] 30.3 % Low 37-47 [facility] Hemoglobin A1c percentageOrd ered By: Anabel Duvall on 06-12-2024 HbA1c (Bld) [Mass fraction] 6.2 % High <5.7 [facility] Comment on above: Normal < 5.7 % Predi abetic 5.7 - 6.4 % Diabetic >or= 6.5 % Please note range changes. Hemoglobin measurementOrdere d By: Anabel Duvall on 06-12-2024 Hemoglobin (Bld) [Mass/Vol] 9.9 g/dL Low 12.0-15.0 [facility] Immature granulocytes/100 WB C Auto (Bld)Ordered By: Anabel Duvall on 06-12-2024 Immature granulocytes/100 WBC (Bld) 0.200 % 0.0-0.9 [facility] Comment on above: IG% - Immature Granu locytes (promyelocytes, myelocytes and metamyelocytes) > 1% indicates that a LEFT SHIFT is Present. LDL calc ser/plasOrdered By: Anabel Duvall on 06-12-2024 Cholesterol in LDL [Mass/Vol] 85 mg/dL [facility] Comment on above: Vspunotwom=666-553 m g/dL & Higher Olcr=633 mg/dL or greater Laboratory - Chemistry and C hemistry - challengeOrdered By: Anabel Duvall on 06-12-2024 AST [Catalytic activity/Vol] 48 U/L High <32 [facility] MCV (mean corpuscular volume ) determinationOrdered By: Anabel Duvall on 06-12-2024 MCV (RBC) [Entitic vol] 88.1 fL 81-99 [facility] Mean corpuscular hemoglobin (MCH) determinationOrdered By: kundownsvillejono Duvall on 06-12-2024 MCH (RBC) [Entitic mass] 28.8 pg 27.0-32.0 [facility] Mean corpuscular hemoglobin concentration (MCHC) determinationOrdered By: Anabel Duvall on 06-12-2024 MCHC (RBC) [Mass/Vol] 32.7 g/dL 32-36 [facility] Mean platelet volume determi nationOrdered By: Anabel Duvall on 06-12-2024 Platelet mean volume (Bld) [Entitic vol] 12.3 fL High 6.2-12.0 [facility] Monocyte percentageOrdered B y: Anabel Duvall on 06-12-2024 Monocytes/100 WBC (Bld) 7.8 % 0-10 [facility] Neutrophil percentageOrdered By: Anabel Duvall on 06-12-2024 Neutrophils/100 WBC (Bld) 55.7 % 47-70 [facility] Nucleated red blood cell per centageOrdered By: Anabel Duvall on 06-12-2024 Nucleated RBC/100 WBC (Bld) [Ratio] 0 % 0-5 [facility] Platelet countOrdered By: Luna Duvall on 06-12-2024 Platelets (Bld) [#/Vol] 163 10*3/uL 150-450 [facility] Potassium measurement (mass/ volume)Ordered By: Anabel Duvall on 06-12-2024 Potassium (Unsp spec) [Mass/Vol] 3.7 mmol/L 3.3-5.1 [facility] RBC Auto (Bld) [#/Vol]Ordere d By: Anabel Duvall on 06-12-2024 RBC (Bld) [#/Vol] 3.44 10*6/uL Low 4.2-5.4 [facility] Screening total cholesterol/ high density lipoprotein (HDL) cholesterol ratioOrdered By: Anabel Duvall on 06-12-2024 Cholesterol.total/Chol esterol in HDL [Mass ratio] 2.87 {ratio} [facility] Serum creatinine measurement (mass/volume)Ordered By: Anabel Duvall on 06-12-2024 Creatinine [Mass/Vol] 0.92 mg/dL 0.70-1.20 [facility] Serum globulin measurementOr dered By: Anabel Duvall on 06-12-2024 Globulin (S) [Mass/Vol] 4.1 g/dL 2.2-4.2 [facility] Serum glucose measurement (m ass/volume)Ordered By: Anabel Duvall on 06-12-2024 Glucose [Mass/Vol] 98 mg/dL 70-99 [facility] Serum or plasma alanine gtz otransferase (ALT) measurementOrdered By: Anabel Duvall on 06-12-2024 ALT [Catalytic activity/Vol] 28 U/L <35 [facility] Serum or plasma albumin blanco urement (mass/volume)Ordered By: Anabel Duvall on 06-12-2024 Albumin [Mass/Vol] 3.2 g/dL Low 3.4-4.8 [facility] Serum or plasma albumin/glob ulin mass ratioOrdered By: Anabel Duvall on 06-12-2024 Albumin/Globulin [Mass ratio] 0.8 {ratio} Low 0.9-2.4 [facility] Serum or plasma alkaline javier sphatase measurementOrdered By: Anabel Duvall 06-12-2024 ALP [Catalytic activity/Vol] 323 U/L High 35-104 [facility] Serum or plasma calcium blanco urement (mass/volume)Ordered By: Anabel Duvall 06-12-2024 Calcium [Mass/Vol] 9.1 mg/dL 7.6-11.0 [facility] Serum or plasma cholesterol in HDL measurement (mass/volume)Ordered By: Anabel Duvall 06-12-2024 Cholesterol in HDL [Mass/Vol] 53 mg/dL >40 [facility] Comment on above: National Cholesterol Education Program (NCEP) guidelines:<40 mg/dL: Low HDL-cholesterol (major risk factor for CHD)>= 60 mg/dL: High HDL-cholesterol (negative risk factor for CHD)HDL-cholesterol is affected by a number of factors, e.g. smoking, exercise, hormones, sex and age. Serum or plasma cholesterol measurement (mass/volume)Ordered By: Anabel Duvall 06-12-2024 Cholesterol [Mass/Vol] 153 mg/dL <201 [facility] Comment on above: Cholesterol level, D esirable <200 mg/dLBorderline high cholesterol 200-239 mg/dLHigh cholesterol >=240 mg/dLRecommendations of the NCEP Adult Treatment Panel for the following risk-cutoff thresholds for the [place] population. Serum or plasma urea nitroge n measurement (mass/volume)Ordered By: Anabel Duvall 06-12-2024 Urea nitrogen [Mass/Vol] 21 mg/dL High 4-19 [facility] Sodium levelOrdered By: Chino Duvall 06-12-2024 Sodium [Moles/Vol] 139 mmol/L 133-145 [facility] Total proteinOrdered By: Shan Martinezjuana on 06-12-2024 Protein [Mass/Vol] 7.4 g/dL 5.9-8.4 [facility] Triglycerides measurementOrd ered By: Anabel Duvall on 06-12-2024 Triglyceride [Mass/Vol] 75 mg/dL <199 [facility] Comment on above: The drugs N-Acetylcy steine and Metamizole may falsely depress this assay. Normal range: <150 mg/dLBorderline High: 150-199 mg/dLHigh: 200-499 mg/dLVery High: >500 mg/dL White blood cell (WBC) count Ordered By: Anabel Chanogracejuana on 06-12-2024 WBC (Bld) [#/Vol] 4.6 10*3/uL 4.4-11.0 [facility] Absolute lymphocyte countOrd ered By: Anabel Chanogracejuana on 03-16-2024 Lymphocytes Auto (Unsp spec) [#/Vol] 1.69 10*3/uL 0.83-4.51 [facility] Absolute neutrophil countOrd ered By: Anabel Chanolito on 03-16-2024 Neutrophils (Bld) [#/Vol] 2.5 10*3/uL 2.0-7.7 [facility] Albumin to globulin ratioOrd ered By: Anabel Duvall on 03-16-2024 Albumin/Globulin [Mass ratio] 0.5 {ratio} Low 0.9-2.4 [facility] Automated lymphocyte count a s percentage of total leukocytesOrdered By: Lunakunjulijono Maddengracejuana on 03-16-2024 Lymphocytes/100 WBC Auto (Unsp spec) 35.0 % 19-41 [facility] Basophil percentageOrdered B y: Albarojono Maddengracejuana on 03-16-2024 Basophils/100 WBC (Bld) 0.8 % 0-1 [facility] Bilirubin, totalOrdered By: Anabel Chanogracejuana on 03-16-2024 Bilirubin [Mass/Vol] 0.30 mg/dL 0.20-1.00 [facility] Comment on above: For patients on eltr ombopag therapy, use of Dimension [place] TBIL is not recommended. Blood urea nitrogen (BUN)/cr eatinine ratioOrdered By: Anabel Duvall on 03-16-2024 Urea nitrogen/Creatinine [Mass ratio] 25.9 mg/mg High 10-20 [facility] Carbon dioxide measurementOr dered By: Anabel Duvall on 03-16-2024 CO2 [Moles/Vol] 29.0 mmol/L 21.0-32.0 [facility] Chloride measurementOrdered By: Anabel Duvall on 03-16-2024 Chloride [Moles/Vol] 104 mmol/L 98-107 [facility] Eosinophil percentageOrdered By: Anabel Duvall on 03-16-2024 Eosinophils/100 WBC (Bld) 3.3 % 0-5 [facility] Erythrocyte distribution wid th ratioOrdered By: kundownsvillejono Duvall on 03-16-2024 Erythrocyte distribution width (RBC) [Ratio] 13.3 % 11.6-14.6 [facility] Erythrocyte distribution wid th standard deviationOrdered By: Anabel Duvall on 03-16-2024 Erythrocyte distribution width (RBC) [Ratio] 45.3 fl High 35.1-43.9 [facility] Glomerular filtration rate ( GFR) estimationOrdered By: Anabel Duvall on 03-16-2024 GFR/1.73 sq M.predicted among non-blacks MDRD (S/P/Bld) [Vol rate/Area] 62 mL/min/{1.73_m2} >60 [facility] Comment on above: Non- GFR Calc Glucose measurementOrdered B y: Anabel Duvall on 03-16-2024 Glucose [Mass/Vol] 104 mg/dL 74-106 [facility] Comment on above: Fasting Glucose resu lt from 100 to 125 mg/dL suggests IMPAIRED HOMEOSTASIS per A.D.A. criteria. Hematocrit Auto (Bld) [Volum e fraction]Ordered By: Anabel Duvall on 03-16-2024 Hematocrit (Bld) [Volume fraction] 33.5 % Low 37-47 [facility] Hemoglobin A1c percentageOrd ered By: Anabel Duvall on 03-16-2024 HbA1c (Bld) [Mass fraction] 4.8 % 3.8-5.6 [facility] Comment on above: Normal < 5.7 % Predi abetic 5.7 - 6.4 % Diabetic >or= 6.5 % Please note range changes. Hemoglobin measurementOrdere d By: Anabel Duvall on 03-16-2024 Hemoglobin (Bld) [Mass/Vol] 10.6 g/dL Low 12.0-15.0 [facility] Immature granulocytes/100 WB C Auto (Bld)Ordered By: Anabel Duvall on 03-16-2024 Immature granulocytes/100 WBC (Bld) 0.200 % 0.0-0.9 [facility] Comment on above: IG% - Immature Granu locytes (promyelocytes, myelocytes and metamyelocytes) > 1% indicates that a LEFT SHIFT is Present. Laboratory - Chemistry and C hemistry - challengeOrdered By: Anabel Duvall on 03-16-2024 AST [Catalytic activity/Vol] 63 U/L High 15-37 [facility] MCV (mean corpuscular volume ) determinationOrdered By: Anabel Duvall on 03-16-2024 MCV (RBC) [Entitic vol] 92.0 fL 81-99 [facility] Mean corpuscular hemoglobin (MCH) determinationOrdered By: Anabel Duvall on 03-16-2024 MCH (RBC) [Entitic mass] 29.1 pg 27.0-32.0 [facility] Mean corpuscular hemoglobin concentration (MCHC) determinationOrdered By: Anabel Duvall on 03-16-2024 MCHC (RBC) [Mass/Vol] 31.6 g/dL Low 32-36 [facility] Mean platelet volume determi nationOrdered By: Anabel Duvall on 03-16-2024 Platelet mean volume (Bld) [Entitic vol] 12.6 fL High 6.2-12.0 [facility] Monocyte percentageOrdered B y: Anabel Duvall on 03-16-2024 Monocytes/100 WBC (Bld) 9.1 % 0-10 [facility] Neutrophil percentageOrdered By: Anabel Duvall on 03-16-2024 Neutrophils/100 WBC (Bld) 51.6 % 47-70 [facility] Nucleated red blood cell per centageOrdered By: Anabel Duvall on 03-16-2024 Nucleated RBC/100 WBC (Bld) [Ratio] 0 % 0-5 [facility] Platelet countOrdered By: Luna Duvall on 03-16-2024 Platelets (Bld) [#/Vol] 183 10*3/uL 150-450 [facility] Potassium measurementOrdered By: Anabel Duvall on 03-16-2024 Potassium [Moles/Vol] 4.2 mmol/L 3.5-5.1 [facility] RBC Auto (Bld) [#/Vol]Ordere d By: Anabel Duvall on 03-16-2024 RBC (Bld) [#/Vol] 3.64 10*6/uL Low 4.2-5.4 [facility] Serum anion gap measurementO rdered By: Anabel Duvall on 03-16-2024 Anion gap [Moles/Vol] 6 mmol/L 5-15 [facility] Serum globulin measurementOr dered By: Anabel Duvall on 03-16-2024 Globulin (S) [Mass/Vol] 5.3 g/dL High 2.2-4.2 [facility] Serum or plasma alanine gtz otransferase (ALT) measurementOrdered By: Anabel Duvall on 03-16-2024 ALT [Catalytic activity/Vol] 51 U/L 13-56 [facility] Serum or plasma albumin blanco urement (mass/volume)Ordered By: Anabel Duvall on 03-16-2024 Albumin [Mass/Vol] 2.9 g/dL Low 3.2-5.0 [facility] Serum or plasma alkaline javier sphatase measurementOrdered By: Anabel Duvall on 03-16-2024 ALP [Catalytic activity/Vol] 290 U/L High 45-117 [facility] Serum or plasma calcium blanco urement (mass/volume)Ordered By: Anabel Duvall on 03-16-2024 Calcium [Mass/Vol] 9.6 mg/dL 8.5-10.1 [facility] Serum or plasma creatinine m easurement (mass/volume)Ordered By: Albarojono Duvall on 03-16-2024 Creatinine [Mass/Vol] 0.93 mg/dL 0.55-1.02 [facility] Comment on above: The validity of the calculated GFR & GFRAA in patients over 70 years has not been determined. Clinical correlation is essential. Serum or plasma urea nitroge n measurement (mass/volume)Ordered By: Anabel Duvall on 03-16-2024 Urea nitrogen [Mass/Vol] 24 mg/dL High 7-18 [facility] Sodium levelOrdered By: Lunakun olesya Chanogracejuana on 03-16-2024 Sodium [Moles/Vol] 139 mmol/L 136-145 [facility] Total proteinOrdered By: Shan formanjono Maddengracejuana on 03-16-2024 Protein [Mass/Vol] 8.2 g/dL 6.4-8.2 [facility] White blood cell (WBC) count Ordered By: Chinojulijono Maddengracejuana on 03-16-2024 WBC (Bld) [#/Vol] 4.8 10*3/uL 4.4-11.0 [facility] MR Abdomen WO and W contrast Verito [...] findings was made to MITA MORTON via [employer] Secure Chat on 12/24/2023 9:32 AM EST. Report Dictated on Electronically Signed By: Jovi Davis MD Electronically Signed Date/Time: 12/24/2023 9:33 AM EST [facility] EMER[facility] RADIOLOGY SYSTEM [facility] 1940 [id number] Exam Date/Time: 12/20/2023 16:34 Procedure: MR ABDOMEN [...] study but measures at least 3.4 cm [facility] EMERGENCY [facility]PART[facility] RADIOLOGY SYSTEM Jovi Davis MD - 12/24/2023 Patient Name: PRE[facility] 1940 [id number] Exam Date/Time: 12/20/2023 16:34 Procedure: MR ABDOMEN [...] findings was made to MITA MORTON via [employer] Secure Chat on 12/24/2023 9:32 AM EST. Report Dictated on Electronically Signed By: Jovi Davis MD Electronically Signed Date/Time: 12/24/2023 9:33 AM EST [facility] MR Abdomen WO and W contrast IVOrdered By: Jovi Davis on 12-24-2023 [facility] Work Phone: MR Abdomen WO and W contrast Verito 12-20-2023 Radiology Study observation (narrative) [facility] [employer] Chest PA and Lateralon 11-21 Chest PA and Lateral [facility] [address] [place] [id number] Chest PA and Lateral MR#: [id number] Acct: [id number] Name: PREMA VILLALPANDO Rep #: [id number] : 1940 F 83 From: Barak Cheema MD PCP: Mita Morton DO Status: REG CLI Study: Chest PA and Lateral Date of Exam: 11/22/23 Exam# [id number] Ordering Dr: Erich Hernandez PA 455:[id number] STUDY: X-RAY CHEST REASON FOR EXAM: Female, [...] Cheema MD at 18:56 EDT , CC: Mita Morton DO; MACK Abbott [employer] Services Manager: Signed Normal [facility] Urgent Care Visit Reporton 1 Urgent Care Visit Report [facility] [address] [place] [address] OFFICE VISIT Date of Service: 11/22/23 MR#: [id number] Acct: [id number] Name: PREMA VILLALPANDO Rep #: [id number] : 1940 Provider: MACK Abbott Age/Sex: 83/F Location: [facility] Status: Signed Intake Vital Signs 07/30/23 06:06 [...] some bilateral swelling in her legs today. 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 Normal [facility] US ABDOMEN LIMITEDon 024 US ABDOMEN [...] [facility] US Abdomen limitedon 024 1. [...] Electronically Signed Date/Time: 11/12/2023 7:58 AM [facility] 1940 [id number] Exam Date/Time: 11/11/2023 09:18 Procedure: US ABDOMEN [...] mass or hydronephrosis. Ascites: Trace perihepatic ascites [facility] RADIOLOGY [facility] Jovi Davis MD - 11/12/2023 Patient Name: PREMA VILLALPANDO [facility] 1940 [id number] Exam Date/Time: 11/11/2023 09:18 Procedure: US ABDOMEN [...] Electronically Signed Date/Time: 11/12/2023 7:58 AM EDT [facility] US Abdomen limitedOrdered By : Jovi Davis on 11-12-2023 [facility] Work Phone: US Abdomen limitedon 024 Radiology Study observation (narrative) [facility] ECG 12 leadon 08-18-2023 NSR with PAC's Low voltage in limb leads. -Nonspecific T-abnormality. ABNORMAL ARPU Bacteria identified Cx Nom ( U)Ordered By: Fallon Lopez on 05-13-2023 Interpretation and review of laboratory results Normal [facility] Urine culture (clean catch)O rdered By: Fallon Lopez on 05-13-2023 Bacteria identified Cx Nom (U) Normal urogenital nayeli present [facility] Urinalysis complete panel (U )Ordered By: Antoine Cedeno on 05-11-2023 Bacteria LM.HPF (Urine sed) [#/Area] Moderate Abnormal Negative /HPF [facility] Bilirubin Ql (U) Negative Negative mg/dL [facility] Clarity (U) Clear Clear [facility] Color (U) Light Yellow Lt. Yellow [facility] Epithelial cells.squamous LM.HPF (Urine sed) [#/Area] Negative [facility] Glucose Ql (U) Normal Normal (<70) mg/dL [facility] Hemoglobin Ql (U) Negative Negative mg/dL [facility] Hyaline casts Auto (Urine sed) [#/Area] 6-10 Abnormal Negative /LPF [facility] Interpretation and review of laboratory results Abnormal [facility] Ketones (U) [Mass/Vol] Negative Negat brook mg/dL [facility] Leukocyte esterase Test strip Ql (U) 25 Abnormal Negative Xavier/uL [facility] Nitrite Ql (U) Negative Negative [facility] pH (U) 5.0 [pH] 5.0 - 8.0 pH [facility] Protein (U) [Mass/Vol] Negative Negat brook mg/dL [facility] RBC LM.HPF (Urine sed) [#/Area] Negative [facility] Specific gravity (U) [Rel density] 1.013 1.005 - 1.030 [facility] Urobilinogen (U) [Mass/Vol] Normal Normal (0-1) mg/dL [facility] Volume, Urine 12 mL [facility] WBC LM.HPF (Urine sed) [#/Area] 0-2 [facility] US Abdomenon 10-29-2022 1. Unremarkable postcholecystectomy ultrasound of the abdomen as discussed --- unchanged since prior study 4.5 months ago (heterogeneous echogenicity of the liver without focal lesions). Report Dictated on Electronically Signed By: Rufus Miller MD Electronically Signed Date/Time: 10/29/2022 4:15 PM [facility] Patient Name: PREMA VILLALPANDO : [...] inferior vena cava are within normal limits. [facility] Rufus Miller MD - 10/29/2022 Patient Name: PREMA VILLALPANDO : 1940 Exam [...] Electronically Signed Date/Time: 10/29/2022 4:15 PM EDT [facility] [employer] US AbdomenOrdered By: Jero Miller on 10-29-2022 [facility] [employer] Work Phone: US Abdomenon 10-28-2022 Radiology Study observation (narrative) [facility] Comprehensive metabolic 1998 panelon 09-24-2022 Albumin [Mass/Vol] 4.2 g/dL 3.5 - 5.0 g/dL [facility] [employer] ALP [Catalytic activity/Vol] 211 U/L High 38 - 126 U/L [facility] [employer] ALT [Catalytic activity/Vol] 82 U/L High 0 - 34 U/L [facility] [employer] Anion gap [Moles/Vol] 3 mmol/L 3 - 13 mmol/L [facility] [employer] AST [Catalytic activity/Vol] 103 U/L High 15 - 46 U/L [facility] Bilirubin [Mass/Vol] 0.4 mg/dL 0.2 - 1 .3 mg/dL [facility] [employer] Calcium [Mass/Vol] 9.5 mg/dL 8.4 - 10. 4 mg/dL [facility] [employer] Chloride [Moles/Vol] 106 mmol/L 98 - 10 7 mmol/L [facility] [employer] CO2 [Moles/Vol] 32 mmol/L High 22 - 30 mmol/L [facility] [employer] Creatinine [Mass/Vol] 0.85 mg/dL 0.52 - 1.04 mg/dL [facility] GFR/1.73 sq M.predicted MDRD (S/P/Bld) [Vol rate/Area] 69.8 mL/min/{1.73_m2} - PINF [facility] Comment on above: Calculation based on the Chronic Kidney Disease Epidemiology Collaboration (CKD-EPI) equation refit without adjustment for race Glucose [Mass/Vol] 108 mg/dL High 70 - 100 mg/dL [facility] Potassium [Moles/Vol] 4.2 mmol/L 3.5 - 5.1 mmol/L [facility] Protein [Mass/Vol] 8.5 g/dL High 6.3 - 8.2 g/dL [facility] Sodium [Moles/Vol] 142 mmol/L 135 - 145 mmol/L [facility] Urea nitrogen [Mass/Vol] 18 mg/dL High 7 - 17 mg/dL [facility] Lipid 1996 panelon 3 Cholesterol [Mass/Vol] 143 mg/dL NINF - 200 mg/dL [facility] Cholesterol in HDL [Mass/Vol] 61 mg/dL High 40 - 60 mg/dL [facility] Cholesterol in LDL [Mass/Vol] 73 mg/dL 0 - <100 [facility] Cholesterol.total/Chol esterol in HDL [Mass ratio] 2 {ratio} [facility] Comment on above: Ref Range: < 3 Low Risk for CHD 3-6 Mod Risk for CHD > 6 High Risk for CHD Triglyceride [Mass/Vol] 45 mg/dL NINF - 150 mg/dL [facility] No Panel Informationon 09-24 Interpretation and review of laboratory results Abnormal [facility] Basic metabolic 1997 panelon 09-14-2022 Anion gap [Moles/Vol] 8 mmol/L 3 - 13 mmol/L [facility] Calcium [Mass/Vol] 9.2 mg/dL 8.4 - 10. 4 mg/dL [facility] Chloride [Moles/Vol] 102 mmol/L 98 - 10 7 mmol/L [facility] CO2 [Moles/Vol] 31 mmol/L High 22 - 30 mmol/L [facility] Creatinine [Mass/Vol] 0.92 mg/dL 0.52 - 1.04 mg/dL [facility] GFR/1.73 sq M.predicted MDRD (S/P/Bld) [Vol rate/Area] 63.5 mL/min/{1.73_m2} - PINF [facility] Comment on above: Calculation based on the Chronic Kidney Disease Epidemiology Collaboration (CKD-EPI) equation refit without adjustment for race Glucose [Mass/Vol] 139 mg/dL High 70 - 100 mg/dL [facility] Interpretation and review of laboratory results Abnormal [facility] Potassium [Moles/Vol] 4.1 mmol/L 3.5 - 5.1 mmol/L [facility] Sodium [Moles/Vol] 140 mmol/L 135 - 145 mmol/L [facility] Urea nitrogen [Mass/Vol] 23 mg/dL High 7 - 17 mg/dL [facility] No Panel Informationon 08-25 [facility] Absolute lymphocyte countOrd ered By: Anabel Duvall on 07-09-2022 Lymphocytes Auto (Unsp spec) [#/Vol] 1.56 10*3/uL 0.83-4.51 [facility] Basophil percentageOrdered B y: Anabel Duvall on 07-09-2022 Basophils/100 WBC (Bld) 1.2 % 0-1 [facility] Chloride [Moles/Vol] 111 mmol/L 98-107 [facility] Eosinophils/100 WBC (Bld) 3.2 % 0-5 [facility] Glucose [Mass/Vol] 115 mg/dL 74-106 [facility] Comment on above: Fasting Glucose resu lt from 100 to 125 mg/dL suggests IMPAIRED HOMEOSTASIS per A.D.A. criteria. Neutrophils (Bld) [#/Vol] 2.8 10*3/uL 2.0-7.7 [facility] Neutrophils/100 WBC (Bld) 56.0 % 47-70 [facility] Potassium [Moles/Vol] 4.3 mmol/L 3.5-5.1 [facility] Sodium [Moles/Vol] 144 mmol/L 136-145 [facility] WBC (Bld) [#/Vol] 5.1 10*3/uL 4.4-11.0 [facility] Blood erythrocytes count (nu mber/volume)Ordered By: Anabel Duvall on 07-09-2022 RBC (Bld) [#/Vol] 3.60 10*6/uL 4.2-5.4 [facility] Blood hemoglobin measurement (mass/volume)Ordered By: Anabel Duvall on 07-09-2022 Hemoglobin (Bld) [Mass/Vol] 10.0 g/dL 12.0-15.0 [facility] Blood lymphocytes/100 leukoc ytesOrdered By: Anabel Duvall on 07-09-2022 Lymphocytes/100 WBC (Bld) 30.9 % 19-41 [facility] Blood monocytes/100 leukocyt esOrdered By: Anabel Duvall on 07-09-2022 Monocytes/100 WBC (Bld) 8.5 % 0-10 [facility] Blood platelet mean volumeOr dered By: Anabel Duvall on 07-09-2022 Platelet mean volume (Bld) [Entitic vol] 12.2 fL 6.2-12.0 [facility] Determination of erythrocyte mean corpuscular volume (MCV)Ordered By: Anabel Duvall on 07-09-2022 MCV (RBC) [Entitic vol] 91.1 fL 81-99 [facility] Hematocrit Auto (Bld) [Volum e fraction][facility] on 07-09-2022 Hematocrit (Bld) [Volume fraction] 32.8 % 37-47 [facility] Laboratory - Chemistry and C hemistry - challengeOrdered By: [facility] on 07-09-2022 CO2 [Moles/Vol] 31.0 mmol/L 21.0-32.0 [facility] Urea nitrogen/Creatinine [Mass ratio] 35.1 mg/mg 10-20 [facility] Laboratory - Hematology and Cell countsOrdered By: [facility] on 07-09-2022 Erythrocyte distribution width (RBC) [Entitic vol] 62.8 fL 35.1-43.9 [facility] Erythrocyte distribution width (RBC) [Ratio] 19.1 % 11.6-14.6 [facility] Immature granulocytes/100 WBC (Bld) 0.200 % 0.0-0.9 [facility] Comment on above: IG% - Immature Granu locytes (promyelocytes, myelocytes and metamyelocytes) > 1% indicates that a LEFT SHIFT is Present. MCH (RBC) [Entitic mass] 27.8 pg 27.0-32.0 [facility] Nucleated RBC/100 WBC (Bld) [Ratio] 0 % 0-5 [facility] MCHC Auto (RBC) [Mass/Vol]Or dered By: Anabel Duvall on 07-09-2022 MCHC (RBC) [Mass/Vol] 30.5 g/dL 32-36 [facility] No Panel InformationOrdered By: Anabel Duvall on 07-09-2022 Estimated GFR (MDRD) Amer 82 mL/min >60 [facility] Comment on above: GFR Calc Estimated GFR (MDRD) Non-Af Amer 68 mL/min >60 [facility] Comment on above: Non- GFR Calc Platelets bldOrdered By: Shan Duvall on 07-09-2022 Platelets (Bld) [#/Vol] 207 10*3/uL 150-450 [facility] Serum or plasma calcium blanco urement (mass/volume)Ordered By: Anabel Duvall on 07-09-2022 Calcium [Mass/Vol] 8.7 mg/dL 8.5-10.1 [facility] Serum or plasma creatinine m easurement (mass/volume)Ordered By: Anabel Duvall on 07-09-2022 Creatinine [Mass/Vol] 0.85 mg/dL 0.55-1.02 [facility] Comment on above: The validity of the calculated GFR & GFRAA in patients over 70 years has not been determined. Clinical correlation is essential. Serum or plasma urea nitroge n measurement (mass/volume)Ordered By: Anabel Duvall on 07-09-2022 Urea nitrogen [Mass/Vol] 30 mg/dL 7-18 [facility] Thin prep Papanicolaou smear with manual screeningOrdered By: Anabel Duvall on 07-09-2022 Thin prep Papanicolaou smear with manual screening 2 5-15 [facility] Basophil percentageOrdered B y: Fallon Mcclendon on 06-26-2022 Ammonia (P) [Moles/Vol] 27.0 umol/L -32 [facility] Absolute lymphocyte countOrd ered By: Anabel Duvall on 06-25-2022 Lymphocytes Auto (Unsp spec) [#/Vol] 1.27 10*3/uL 0.83-4.51 [facility] Basophil percentageOrdered B y: Anabel Duvall on 06-25-2022 Basophils/100 WBC (Bld) 0.9 % 0-1 [facility] Bilirubin [Mass/Vol] 0.40 mg/dL 0.20-1.00 [facility] Comment on above: For patients on eltr ombopag therapy, use of Dimension [place] TBIL is not recommended. Chloride [Moles/Vol] 111 mmol/L 98-107 [facility] Eosinophils/100 WBC (Bld) 2.0 % 0-5 [facility] Glucose [Mass/Vol] 122 mg/dL 74-106 [facility] Comment on above: Fasting Glucose resu lt from 100 to 125 mg/dL suggests IMPAIRED HOMEOSTASIS per A.D.A. criteria. Neutrophils (Bld) [#/Vol] 4.4 10*3/uL 2.0-7.7 [facility] Neutrophils/100 WBC (Bld) 69.0 % 47-70 [facility] Potassium [Moles/Vol] 3.7 mmol/L 3.5-5.1 [facility] Protein [Mass/Vol] 6.7 g/dL 6.4-8.2 [facility] Sodium [Moles/Vol] 146 mmol/L 136-145 [facility] WBC (Bld) [#/Vol] 6.4 10*3/uL 4.4-11.0 [facility] Blood erythrocytes count (nu mber/volume)Ordered By: Anabel Duvall on 06-25-2022 RBC (Bld) [#/Vol] 3.33 10*6/uL 4.2-5.4 [facility] Blood hemoglobin measurement (mass/volume)Ordered By: Anabel Duvall on 06-25-2022 Hemoglobin (Bld) [Mass/Vol] 9.2 g/dL 12.0-15.0 [facility] Blood lymphocytes/100 leukoc ytesOrdered By: Anabel Duvall on 06-25-2022 Lymphocytes/100 WBC (Bld) 19.8 % 19-41 [facility] Blood monocytes/100 leukocyt esOrdered By: Anabel Duvall on 06-25-2022 Monocytes/100 WBC (Bld) 8.1 % 0-10 [facility] Blood platelet mean volumeOr dered By: Anabel Duvall on 06-25-2022 Platelet mean volume (Bld) [Entitic vol] 11.9 fL 6.2-12.0 [facility] Determination of erythrocyte mean corpuscular volume (MCV)Ordered By: Anabel Duvall on 06-25-2022 MCV (RBC) [Entitic vol] 89.2 fL 81-99 [facility] Hematocrit Auto (Bld) [Volum e fraction]Ordered By: nav Duvall on 06-25-2022 Hematocrit (Bld) [Volume fraction] 29.7 % 37-47 [facility] Laboratory - Chemistry and C hemistry - challengeOrdered By: [place] Du[place] on 06-25-2022 ALP [Catalytic activity/Vol] 240 U/L 45-117 [facility] ALT [Catalytic activity/Vol] 132 U/L 13-56 [facility] CO2 [Moles/Vol] 30.0 mmol/L 21.0-32.0 [facility] Globulin (S) [Mass/Vol] 4.3 g/dL 2.2-4.2 [facility] Urea nitrogen/Creatinine [Mass ratio] 27.6 mg/mg 10-20 [facility] Laboratory - Hematology and Cell countsOrdered By: [place] Du[place] on 06-25-2022 Erythrocyte distribution width (RBC) [Entitic vol] 53.0 fL 35.1-43.9 [facility] Erythrocyte distribution width (RBC) [Ratio] 17.0 % 11.6-14.6 [facility] Immature granulocytes/100 WBC (Bld) 0.200 % 0.0-0.9 [facility] Comment on above: IG% - Immature Granu locytes (promyelocytes, myelocytes and metamyelocytes) > 1% indicates that a LEFT SHIFT is Present. MCH (RBC) [Entitic mass] 27.6 pg 27.0-32.0 [facility] Nucleated RBC/100 WBC (Bld) [Ratio] 0 % 0-5 [facility] MCHC Auto (RBC) [Mass/Vol]Or dered By: [place] Du[place] on 06-25-2022 MCHC (RBC) [Mass/Vol] 31.0 g/dL 32-36 [facility] No Panel InformationOrdered By: [facility] on 06-25-2022 Estimated GFR (MDRD) Amer 81 mL/min >60 [facility] Comment on above: GFR Calc Estimated GFR (MDRD) Non-Af Amer 67 mL/min >60 [facility] Comment on above: Non- GFR Calc Platelets bldOrdered By: Shan Duvall on 06-25-2022 Platelets (Bld) [#/Vol] 216 10*3/uL 150-450 [facility] Serum or plasma albumin blanco urement (mass/volume)Ordered By: Anabel Duvall on 06-25-2022 Albumin [Mass/Vol] 2.4 g/dL 3.2-5.0 [facility] Serum or plasma albumin/glob ulin mass ratioOrdered By: Anabel Duvall on 06-25-2022 Albumin/Globulin [Mass ratio] 0.6 {ratio} 0.9-2.4 [facility] Serum or plasma calcium blanco urement (mass/volume)Ordered By: Anabel Duvall on 06-25-2022 Calcium [Mass/Vol] 8.0 mg/dL 8.5-10.1 [facility] Serum or plasma creatinine m easurement (mass/volume)Ordered By: Anabel Duvall on 06-25-2022 Creatinine [Mass/Vol] 0.87 mg/dL 0.55-1.02 [facility] Comment on above: The validity of the calculated GFR & GFRAA in patients over 70 years has not been determined. Clinical correlation is essential. Serum or plasma urea nitroge n measurement (mass/volume)Ordered By: Anabel Duvall on 06-25-2022 Urea nitrogen [Mass/Vol] 24 mg/dL -18 [facility] Thin prep Papanicolaou smear with manual screeningOrdered By: Anabel Duvall on 06-25-2022 Thin prep Papanicolaou smear with manual screening 163 U/L 15-37 [facility] Thin prep Papanicolaou smear with manual screening 5 5-15 [facility] Whole blood hemoglobin A1c/t otal hemoglobin ratio (mass fraction)Ordered By: Anabel Duvall on 06-25-2022 HbA1c (Bld) [Mass fraction] 5.7 % 3.8-5.6 [facility] Comment on above: Normal < 5.7 % Predi abetic 5.7 - 6.4 % Diabetic >or= 6.5 % Please note range changes. CBC panel Auto (Bld)Ordered By: Zack Hastings on 06-16-2022 Erythrocyte distribution width (RBC) [Ratio] 14.9 % High 11.5 - 14.5 % [facility] Hematocrit (Bld) [Volume fraction] 28.0 % Low 35.0 - 47.0 % [facility] Hemoglobin (Bld) [Mass/Vol] 9.4 g/dL Low 11.7 - 16.0 g/dL [facility] Interpretation and review of laboratory results Abnormal [facility] MCH (RBC) [Entitic mass] 27.3 pg 26.0 - 34.0 pg [facility] MCHC (RBC) [Mass/Vol] 33.5 % 32.0 - 36.0 % [facility] MCV (RBC) [Entitic vol] 81.5 fL 80.0 - 98.0 fL [facility] Platelet mean volume (Bld) [Entitic vol] 8.7 fL 7.4 - 12.4 fL [facility] Platelets (Bld) [#/Vol] 166 10*3/uL 140 - 440 10*3/uL [facility] RBC (Bld) [#/Vol] 3.44 10*6/uL Low 3.8 - 5.20 10*6/uL [facility] WBC (Bld) [#/Vol] 6.3 10*3/uL 3.6 - 10.7 10*3/uL [facility] Comprehensive metabolic 1998 panelon 06-16-2022 Albumin [Mass/Vol] 2.7 g/dL Low 3.5 - 5.0 g/dL [facility] ALP [Catalytic activity/Vol] 156 U/L High 38 - 126 U/L [facility] ALT [Catalytic activity/Vol] 140 U/L High 0 - 34 U/L [facility] Anion gap [Moles/Vol] 0 mmol/L Low 3 - 13 mmol/L [facility] AST [Catalytic activity/Vol] 167 U/L High 15 - 46 U/L [facility] Bilirubin [Mass/Vol] 0.2 mg/dL 0.2 - 1 .3 mg/dL [facility] Calcium [Mass/Vol] 7.5 mg/dL Low 8.4 - 10. 4 mg/dL [facility] Chloride [Moles/Vol] 108 mmol/L High 98 - 10 7 mmol/L [facility] CO2 [Moles/Vol] 29 mmol/L 22 - 30 mmol/L [facility] Creatinine [Mass/Vol] 0.77 mg/dL 0.52 - 1.04 mg/dL [facility] GFR/1.73 sq M.predicted MDRD (S/P/Bld) [Vol rate/Area] 78.6 mL/min/{1.73_m2} - PINF [facility] Comment on above: Calculation based on the Chronic Kidney Disease Epidemiology Collaboration (CKD-EPI) equation refit without adjustment for race Glucose [Mass/Vol] 92 mg/dL 70 - 100 mg/dL [facility] Interpretation and review of laboratory results Abnormal [facility] Potassium [Moles/Vol] 3.2 mmol/L Low 3.5 - 5.1 mmol/L [facility] Protein [Mass/Vol] 6.4 g/dL 6.3 - 8.2 g/dL [facility] Sodium [Moles/Vol] 138 mmol/L 135 - 145 mmol/L [facility] Urea nitrogen [Mass/Vol] 21 mg/dL High 7 - 17 mg/dL [facility] Laboratory - Microbiology an d Antimicrobial susceptibilityOrdered By: Hazel Harrison on 06-16-2022 SARS-CoV-2 (COVID-19) Ag IA.rapid Ql (Resp) Negative Negative [facility] Comment on above: A negative result do es not rule out the possibility of SARS-CoV-2 infection. NAAT-based methods should be considered for symptomatic patients presenting greater than seven days after onset of symptoms. Method: Lateral flow immunoassay. Fact sheets for healthcare providers and patients can be found at the following sites: https://www.fda.gov/media/324719/download https://www.fda.gov/media/062554/download SARS-CoV-2 (COVID-19) Ag IA. rapid Ql (Resp)Ordered By: Hazel Harrison on 06-16-2022 Interpretation and review of laboratory results Normal [facility] CBC panel Auto (Bld)Ordered By: Kayla Lira on 06-15-2022 Erythrocyte distribution width (RBC) [Ratio] 14.3 % 11.5 - 14.5 % [facility] Hematocrit (Bld) [Volume fraction] 27.5 % Low 35.0 - 47.0 % [facility] Hemoglobin (Bld) [Mass/Vol] 9.1 g/dL Low 11.7 - 16.0 g/dL [facility] Interpretation and review of laboratory results Abnormal [facility] MCH (RBC) [Entitic mass] 27.4 pg 26.0 - 34.0 pg [facility] MCHC (RBC) [Mass/Vol] 33.3 % 32.0 - 36.0 % [facility] MCV (RBC) [Entitic vol] 82.4 fL 80.0 - 98.0 fL [facility] Platelet mean volume (Bld) [Entitic vol] 9.1 fL 7.4 - 12.4 fL [facility] Platelets (Bld) [#/Vol] 165 10*3/uL 140 - 440 10*3/uL [facility] RBC (Bld) [#/Vol] 3.34 10*6/uL Low 3.8 - 5.20 10*6/uL [facility] WBC (Bld) [#/Vol] 6.1 10*3/uL 3.6 - 10.7 10*3/uL [facility] Comprehensive metabolic 1998 panelon 06-15-2022 Albumin [Mass/Vol] 2.6 g/dL Low 3.5 - 5.0 g/dL [facility] ALP [Catalytic activity/Vol] 221 U/L High 38 - 126 U/L [facility] ALT [Catalytic activity/Vol] 136 U/L High 0 - 34 U/L [facility] Anion gap [Moles/Vol] 2 mmol/L Low 3 - 13 mmol/L [facility] AST [Catalytic activity/Vol] 189 U/L High 15 - 46 U/L [facility] Bilirubin [Mass/Vol] 0.2 mg/dL 0.2 - 1 .3 mg/dL [facility] Calcium [Mass/Vol] 7.5 mg/dL Low 8.4 - 10. 4 mg/dL [facility] Chloride [Moles/Vol] 107 mmol/L 98 - 10 7 mmol/L [facility] CO2 [Moles/Vol] 27 mmol/L 22 - 30 mmol/L [facility] Creatinine [Mass/Vol] 0.87 mg/dL 0.52 - 1.04 mg/dL [facility] GFR/1.73 sq M.predicted MDRD (S/P/Bld) [Vol rate/Area] 67.9 mL/min/{1.73_m2} - PINF [facility] Comment on above: Calculation based on the Chronic Kidney Disease Epidemiology Collaboration (CKD-EPI) equation refit without adjustment for race Glucose [Mass/Vol] 111 mg/dL High 70 - 100 mg/dL [facility] Interpretation and review of laboratory results Abnormal [facility] Potassium [Moles/Vol] 3.5 mmol/L 3.5 - 5.1 mmol/L [facility] Protein [Mass/Vol] 6.0 g/dL Low 6.3 - 8.2 g/dL [facility] Sodium [Moles/Vol] 137 mmol/L 135 - 145 mmol/L [facility] Urea nitrogen [Mass/Vol] 21 mg/dL High 7 - 17 mg/dL [facility] Ferritin [Mass/Vol]on 2022 Interpretation and review of laboratory results Normal [facility] Iron and Iron binding capaci ty panelon 06-15-2022 Interpretation and review of laboratory results Abnormal [facility] Iron [Mass/Vol] 23 ug/dL Low 37 - 170 ug/dL [facility] Iron binding capacity [Mass/Vol] 330 ug/dL 261 - 497 ug/dL [facility] Iron saturation [Mass fraction] 7 % Low 15 - 50 % [facility] Laboratory - Chemistry and C hemistry - challengeon 06-15-2022 Ferritin [Mass/Vol] 20 ng/mL 11 - 264 ng/mL [facility] No Panel InformationOrdered By: Rajat Swanson on 06-15-2022 P [place] 89 degrees [facility] Work Phone: [place] Interval 177 ms [facility] Work Phone: QRS [place] -20 degrees [facility] Work Phone: [id number] Interval 90 ms [facility] Work Phone: QT Interval 438 ms [facility] Work Phone: QTC Interval 481 ms [facility] Work Phone: T Wave [place] 39 degrees [facility] Work Phone: [facility] Work Phone: No Panel Informationon 06-15 Sinus [...] Electronically Signed On 06-15-2022 2:53:31 EDT by Nestio US Abdomen limitedon 023 Nonspecific coarsene d heterogeneous echotexture of the liver without focal lesion identified. Correlation with LFTs is recommended. Trace ascites. Report Dictated on Electronically Signed By: Seymour Bragg Electronically Signed Date/Time: 06/15/2022 8:48 AM EDT [facility] RADIOLOGY SYSTEM Patient Name: PREMA [...] Right kidney: No pelvicalyceal dilatation Ascites: Trace [facility] EMERGENCY [facility]PART[facility] RADIOLOGY SYSTEM Seymour Bragg MD - 06/15/2022 [...] Electronically Signed Date/Time: 06/15/2022 8:48 AM EDT [facility] Radiology Study observation (narrative) [facility] US Abdomen limitedOrdered By : Seymour Bragg on 06-15-2022 [facility] Work Phone: Vital signsOrdered By: Ivet Swanson on 06-15-2022 Heart rate 73 /min bpm [facility] Work Phone: CBC W Auto Differential pane l (Bld)Ordered By: Cristiane Womack on 06-14-2022 Basophils (Bld) [#/Vol] 0.0 10*3/uL 0.0 - 0.2 10*3/uL [facility] Basophils/100 WBC (Bld) 0.4 % 0.0 - 2.0 % [facility] Eosinophils (Bld) [#/Vol] 0.1 10*3/uL 0.0 - 0.5 10*3/uL [facility] Eosinophils/100 WBC (Bld) 1.8 % 1.0 - 6.0 % [facility] Erythrocyte distribution width (RBC) [Ratio] 14.4 % 11.5 - 14.5 % [facility] Hematocrit (Bld) [Volume fraction] 27.0 % Low 35.0 - 47.0 % [facility] Hemoglobin (Bld) [Mass/Vol] 8.9 g/dL Low 11.7 - 16.0 g/dL [facility] Interpretation and review of laboratory results Abnormal [facility] Lymphocytes (Bld) [#/Vol] 1.1 10*3/uL 1.0 - 4.3 10*3/uL [facility] Lymphocytes/100 WBC (Bld) 25.1 % 20.0 - 40.0 % [facility] MCH (RBC) [Entitic mass] 26.8 pg 26.0 - 34.0 pg [facility] MCHC (RBC) [Mass/Vol] 32.8 % 32.0 - 36.0 % [facility] MCV (RBC) [Entitic vol] 81.7 fL 80.0 - 98.0 fL [facility] Monocytes (Bld) [#/Vol] 0.3 10*3/uL 0.0 - 0.8 10*3/uL [facility] Monocytes/100 WBC (Bld) 6.5 % 2.0 - 10.0 % [facility] Neutrophils (Bld) [#/Vol] 3.0 10*3/uL 1.8 - 7.0 10*3/uL [facility] Neutrophils/100 WBC (Bld) 66.2 % 40.0 - 80.0 % [facility] Nucleated RBC/100 WBC (Bld) [Ratio] 0.0 % [facility] Platelet mean volume (Bld) [Entitic vol] 8.8 fL 7.4 - 12.4 fL [facility] Platelets (Bld) [#/Vol] 171 10*3/uL 140 - 440 10*3/uL [facility] RBC (Bld) [#/Vol] 3.31 10*6/uL Low 3.8 - 5.20 10*6/uL [facility] WBC (Bld) [#/Vol] 4.6 10*3/uL 3.6 - 10.7 10*3/uL [facility] Comprehensive metabolic 1998 panelon 06-14-2022 Albumin [Mass/Vol] 2.7 g/dL Low 3.5 - 5.0 g/dL [facility] ALP [Catalytic activity/Vol] 141 U/L High 38 - 126 U/L [facility] ALT [Catalytic activity/Vol] 152 U/L High 0 - 34 U/L [facility] Anion gap [Moles/Vol] 1 mmol/L Low 3 - 13 mmol/L [facility] AST [Catalytic activity/Vol] 218 U/L High 15 - 46 U/L [facility] Bilirubin [Mass/Vol] 0.3 mg/dL 0.2 - 1 .3 mg/dL [facility] Calcium [Mass/Vol] 8.1 mg/dL Low 8.4 - 10. 4 mg/dL [facility] Chloride [Moles/Vol] 107 mmol/L 98 - 10 7 mmol/L [facility] CO2 [Moles/Vol] 30 mmol/L 22 - 30 mmol/L [facility] Creatinine [Mass/Vol] 0.78 mg/dL 0.52 - 1.04 mg/dL [facility] GFR/1.73 sq M.predicted MDRD (S/P/Bld) [Vol rate/Area] 77.4 mL/min/{1.73_m2} - PINF [facility] Comment on above: Calculation based on the Chronic Kidney Disease Epidemiology Collaboration (CKD-EPI) equation refit without adjustment for race Glucose [Mass/Vol] 91 mg/dL 70 - 100 mg/dL [facility] Interpretation and review of laboratory results Abnormal [facility] Potassium [Moles/Vol] 3.6 mmol/L 3.5 - 5.1 mmol/L [facility] Protein [Mass/Vol] 6.4 g/dL 6.3 - 8.2 g/dL [facility] Sodium [Moles/Vol] 138 mmol/L 135 - 145 mmol/L [facility] Urea nitrogen [Mass/Vol] 22 mg/dL High 7 - 17 mg/dL [facility] Laboratory - Chemistry and C hemistry - challengeon 06-14-2022 Lactate [Moles/Vol] 0.7 mmol/L 0.7 - 2. 0 mmol/L [facility] No Panel Informationon 06-14 Interpretation and review of laboratory results Normal [facility] Acetaminophen [Mass/Vol]on 0 06-13-2022 Interpretation and review of laboratory results Abnormal [facility] CBC W Auto Differential pane l (Bld)Ordered By: Adela Giron on 06-13-2022 Basophils (Bld) [#/Vol] 0.0 10*3/uL 0.0 - 0.2 10*3/uL [facility] Basophils/100 WBC (Bld) 0.5 % 0.0 - 2.0 % [facility] Eosinophils (Bld) [#/Vol] 0.0 10*3/uL 0.0 - 0.5 10*3/uL [facility] Eosinophils/100 WBC (Bld) 0.5 % Low 1.0 - 6.0 % [facility] Erythrocyte distribution width (RBC) [Ratio] 14.6 % High 11.5 - 14.5 % [facility] Hematocrit (Bld) [Volume fraction] 28.7 % Low 35.0 - 47.0 % [facility] Hemoglobin (Bld) [Mass/Vol] 9.5 g/dL Low 11.7 - 16.0 g/dL [facility] Interpretation and review of laboratory results Abnormal [facility] Lymphocytes (Bld) [#/Vol] 1.3 10*3/uL 1.0 - 4.3 10*3/uL [facility] Lymphocytes/100 WBC (Bld) 19.0 % Low 20.0 - 40.0 % [facility] MCH (RBC) [Entitic mass] 26.9 pg 26.0 - 34.0 pg [facility] MCHC (RBC) [Mass/Vol] 33.0 % 32.0 - 36.0 % [facility] MCV (RBC) [Entitic vol] 81.7 fL 80.0 - 98.0 fL [facility] Monocytes (Bld) [#/Vol] 0.3 10*3/uL 0.0 - 0.8 10*3/uL [facility] Monocytes/100 WBC (Bld) 5.0 % 2.0 - 10.0 % [facility] Neutrophils (Bld) [#/Vol] 5.2 10*3/uL 1.8 - 7.0 10*3/uL [facility] Neutrophils/100 WBC (Bld) 75.0 % 40.0 - 80.0 % [facility] Nucleated RBC/100 WBC (Bld) [Ratio] 0.0 % [facility] Platelet mean volume (Bld) [Entitic vol] 9.2 fL 7.4 - 12.4 fL [facility] Platelets (Bld) [#/Vol] 188 10*3/uL 140 - 440 10*3/uL [facility] RBC (Bld) [#/Vol] 3.51 10*6/uL Low 3.8 - 5.20 10*6/uL [facility] WBC (Bld) [#/Vol] 6.9 10*3/uL 3.6 - 10.7 10*3/uL [facility] CT Head WO contraston 2022 1. No acute intracranial findings. 2. Probable chronic ischemic and atrophic changes. Report Dictated on Electronically Signed By: Niko Talley Electronically Signed Date/Time: 06/13/2022 3:16 PM EDT [facility] Patient Name: PREMA VILLALPANDO : [...] diffuse volume loss. Osseous calvarium grossly intact. [facility] Niko Talley MD - 06/13/2022 Patient Name: [...] PM EDT [facility] Radiology Study observation (narrative) [facility] CT Head WO contrastOrdered B y: Niko Talley on 06-13-2022 [facility] Work Phone: Comprehensive metabolic 1998 panelon 06-13-2022 Albumin [Mass/Vol] 3.4 g/dL Low 3.5 - 5.0 g/dL [facility] ALP [Catalytic activity/Vol] 176 U/L High 38 - 126 U/L [facility] ALT [Catalytic activity/Vol] 185 U/L High 0 - 34 U/L [facility] Anion gap [Moles/Vol] 3 mmol/L 3 - 13 mmol/L [facility] AST [Catalytic activity/Vol] 311 U/L High 15 - 46 U/L [facility] Bilirubin [Mass/Vol] 0.5 mg/dL 0.2 - 1 .3 mg/dL [facility] Calcium [Mass/Vol] 8.7 mg/dL 8.4 - 10. 4 mg/dL [facility] Chloride [Moles/Vol] 104 mmol/L 98 - 10 7 mmol/L [facility] CO2 [Moles/Vol] 27 mmol/L 22 - 30 mmol/L [facility] Creatinine [Mass/Vol] 0.80 mg/dL 0.52 - 1.04 mg/dL [facility] GFR/1.73 sq M.predicted MDRD (S/P/Bld) [Vol rate/Area] 75.1 mL/min/{1.73_m2} - PINF [facility] Comment on above: Calculation based on the Chronic Kidney Disease Epidemiology Collaboration (CKD-EPI) equation refit without adjustment for race Glucose [Mass/Vol] 114 mg/dL High 70 - 100 mg/dL [facility] Interpretation and review of laboratory results Abnormal [facility] Potassium [Moles/Vol] 3.7 mmol/L 3.5 - 5.1 mmol/L [facility] Protein [Mass/Vol] 7.5 g/dL 6.3 - 8.2 g/dL [facility] Sodium [Moles/Vol] 134 mmol/L Low 135 - 145 mmol/L [facility] Urea nitrogen [Mass/Vol] 26 mg/dL High 7 - 17 mg/dL [facility] Fibrin D-dimer FEU (PPP) [Ma ss/Vol]on 06-13-2022 Interpretation and review of laboratory results [facility] of <0.50 mg/L FEU can be used in combination with a pre-test probability model (e.g. Well's) to exclude pulmonary embolism (PE) disease, as well as an aid in the diagnosis of deep vein thrombosis (DVT). [facility] Hepatitis 1996 panel (S)on 06-13-2022 HAV IgM IA Ql Not detected Not Detected [facility] HBV core IgM IA Ql Not detected Not Detected [facility] HBV surface Ag IA Ql Not detected Not Detected [facility] HCV Ab IA Ql Not detected Not Detected [facility] Comment on above: Patients with DETECT ED Hepatitis C Ab results should have a new specimen submitted for supplemental testing with a Hepatitis C Quantitative RNA assay (viral load), if clinically indicated. Interpretation and review of laboratory results Normal [facility] Laboratory - Chemistry and C hemistry - challengeon 06-13-2022 TSH Qn 3.546 m[IU]/L [facility] Glucose [Mass/Vol] 114 mg/dL [facility] Troponin I.cardiac [Mass/Vol] ng/mL 0.000 - 0.034 ng/mL [facility] Laboratory - Chemistry and C hemistry - challengeOrdered By: Aylin Del Rosario on 06-13-2022 Lactate [Moles/Vol] 2.2 mmol/L Critically high 0.7 - 2.0 mmol/L [facility] Laboratory - Coagulationon 0 06-13-2022 Fibrin D-dimer FEU (PPP) [Mass/Vol] mg/L NINF - 0.50 mg/L [facility] PT Coag (Bld) [Time] 11.6 s 9.0 - 12.0 s [facility] Laboratory - Drug toxicology on 06-13-2022 Acetaminophen [Mass/Vol] ug/mL Low 10.0 - 30.0 ug/mL [facility] Natriuretic peptide B [Mass/ Vol]on 06-13-2022 Interpretation and review of laboratory results Abnormal [facility] Natriuretic peptide B (Bld) [Mass/Vol] 575 pg/mL High <20 - 300 [facility] No Panel Informationon 06-13 Interpretation and review of laboratory results Normal [facility] [place][Note 2] <50% stenosis in the right internal carotid [...] Artery: Normal. 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 During the study longitudinal and transverse views were obtained. Pulsed wave doppler was performed. The exam was performed with the patient in the supine position. Overall the study quality was good. CV CPACS No Panel InformationOrdered By: Aylin Del Rosario on 06-13-2022 Interpretation and review of laboratory results Abnormal [facility] No Panel InformationOrdered By: Any Palomino on 06-13-2022 Left CCA dist EDV 8.1 cm/s [facility] Work Phone: Left CCA dist PSV 75.4 cm/s [facility] Work Phone: Left CCA mid EDV 9.30 cm/s [facility] Work Phone: Left CCA mid PSV 92.60 cm/s [facility] Work Phone: Left CCA prox EDV 17.9 cm/s [facility] Work Phone: Left CCA prox PSV 119.5 cm/s [facility] Work Phone: Left ECA EDV 0.00 cm/s [facility] Work Phone: Left ECA PSV 74.6 cm/s [facility] Work Phone: Left ICA dist EDV 17.0 cm/s [...] Work Phone: Right ECA PSV 106.9 cm/s [facility] Work Phone: Right ICA dist EDV 15.3 cm/s [facility] Work Phone: Right ICA dist PSV 71.9 cm/s [facility] Work Phone: Right ICA mid EDV 20.4 cm/s [facility] Work Phone: Right ICA mid PSV 80.9 cm/s [facility] Work Phone: Right ICA prox EDV 13.1 cm/s [facility] Work Phone: Right ICA prox PSV 62.5 cm/s [facility] Work Phone: Right ICA/CCA PSV 0.93 [facility] Work Phone: Right subclavian mid EDV 1.3 cm/s [facility] Work Phone: Right subclavian mid PSV 122.2 cm/s [facility] Work Phone: Right vertebral EDV 9.50 cm/s [facility] Work Phone: Right vertebral PSV 66.6 cm/s [facility] Work Phone: PT Coag (Bld) [Time]on 06-13 INR Coag (PPP) [Relative time] 1.1 {INR} 0.9 - 1.1 [facility] Comment on above: Recommended Anticoag ulant Therapy: [...] Interpretation and review of laboratory results Normal [facility] TSH Qnon 06-13-2022 Interpretation and review of laboratory results Normal [facility] Troponin I.cardiac [Mass/Vol ]on 06-13-2022 Interpretation and review of laboratory results Normal [facility] Patients with high l evels of Biotin oral intake (ie >5 mg/day) may have falsely decreased Troponin levels. [facility] XR Pelvis 1 or 2 Viewson No fracture or dislocation. Report Dictated on Electronically Signed By: Jovi Davis Electronically Signed Date/Time: 06/13/2022 3:33 PM EDT [facility] 1940 [id number] Exam Date/Time: 06/13/2022 15:21 Procedure: XR PELVIS 1-2 VIEWS Ordering Provider: CINTRON NISHIT Reason For Exam: fall PELVIS: CLINICAL INDICATION: Fall, pain. TECHNIQUE: AP COMPARISON: None. FINDINGS: There is no evidence for fracture or dislocation. Mild bilateral hip osteoarthrosis. Degenerative changes in the visualized spine. No bone lesion is identified. There is no soft tissue abnormality. [facility] Jovi Davis MD - 06/13/2022 Patient Name: [...] PM EDT [facility] Radiology Study observation (narrative) [facility] XR Pelvis 1 or 2 ViewsOrdere d By: Jovi Davis on 06-13-2022 [facility] Work Phone: Absolute lymphocyte countOrd ered By: ED PROVIDER on 06-01-2022 Lymphocytes Auto (Unsp spec) [#/Vol] 1.57 10*3/uL 0.83-4.51 [facility] Basophil percentageOrdered B y: Dr. Younger on 06-01-2022 Basophil percentage 0-5 SEEN /hpf 0-5 [facility] Bilirubin [Mass/Vol] 0.30 mg/dL 0.20-1.00 [facility] Comment on above: For patients on eltr ombopag therapy, use of Dimension [place] TBIL is not recommended. Protein [Mass/Vol] 7.8 g/dL 6.4-8.2 [facility] Basophil percentageOrdered B y: ED PROVIDER on 06-01-2022 Basophils/100 WBC (Bld) 0.7 % 0-1 [facility] Chloride [Moles/Vol] 105 mmol/L 98-107 [facility] Eosinophils/100 WBC (Bld) 1.1 % 0-5 [facility] Glucose [Mass/Vol] 124 mg/dL 74-106 [facility] Comment on above: Fasting Glucose resu lt from 100 to 125 mg/dL suggests IMPAIRED HOMEOSTASIS per A.D.A. criteria. Neutrophils (Bld) [#/Vol] 4.9 10*3/uL 2.0-7.7 [facility] Neutrophils/100 WBC (Bld) 70.1 % 47-70 [facility] Potassium [Moles/Vol] 3.5 mmol/L 3.5-5.1 [facility] Sodium [Moles/Vol] 137 mmol/L 136-145 [facility] WBC (Bld) [#/Vol] 7.0 10*3/uL 4.4-11.0 [facility] Bilirubin Test strip Ql (U)O rdered By: Dr. Younger on 06-01-2022 Bilirubin Ql (U) Negative Negative [facility] Blood erythrocytes count (nu mber/volume)Ordered By: ED PROVIDER on 06-01-2022 RBC (Bld) [#/Vol] 3.71 10*6/uL 4.2-5.4 [facility] Blood hemoglobin measurement (mass/volume)Ordered By: ED PROVIDER on 06-01-2022 Hemoglobin (Bld) [Mass/Vol] 10.0 g/dL 12.0-15.0 [facility] Blood lymphocytes/100 leukoc ytesOrdered By: ED PROVIDER on 06-01-2022 Lymphocytes/100 WBC (Bld) 22.3 % 19-41 [facility] Blood monocytes/100 leukocyt esOrdered By: ED PROVIDER on 06-01-2022 Monocytes/100 WBC (Bld) 5.5 % 0-10 [facility] Blood platelet mean volumeOr dered By: ED PROVIDER on 06-01-2022 Platelet mean volume (Bld) [Entitic vol] 10.5 fL 6.2-12.0 [facility] Determination of erythrocyte mean corpuscular volume (MCV)Ordered By: ED PROVIDER on 06-01-2022 MCV (RBC) [Entitic vol] 85.4 fL 81-99 [facility] Direct bilirubinOrdered By: Dr. Younger on 06-01-2022 Bilirubin.direct [Mass/Vol] 0.25 mg/dL 0.00-0.30 [facility] Hematocrit Auto (Bld) [Volum e fraction]Ordered By: ED PROVIDER on 06-01-2022 Hematocrit (Bld) [Volume fraction] 31.7 % 37-47 [facility] Influenza virus A and B and SARS-CoV-2 (COVID-19) Ag panel - Upper respiratory specimOrdered By: Dr. Younger on 06-01-2022 SARS-CoV-2 (COVID-19) RNA BALDO+probe Ql (Resp) [facility] Ketones Test strip Ql (U)Ord ered By: Dr. Younger on 06-01-2022 Ketones Ql (U) Negative Negative [facility] Laboratory - Chemistry and C hemistry - challengeOrdered By: Dr. Younger on 06-01-2022 ALP [Catalytic activity/Vol] 207 U/L 45-117 [facility] ALT [Catalytic activity/Vol] 69 U/L 13-56 [facility] Globulin (S) [Mass/Vol] 5.5 g/dL 2.2-4.2 [facility] Laboratory - Chemistry and C hemistry - challengeOrdered By: ED PROVIDER on 06-01-2022 CO2 [Moles/Vol] 31.0 mmol/L 21.0-32.0 [facility] Urea nitrogen/Creatinine [Mass ratio] 33.1 mg/mg 10-20 [facility] Laboratory - Hematology and Cell countsOrdered By: ED PROVIDER on 06-01-2022 Erythrocyte distribution width (RBC) [Entitic vol] 42.8 fL 35.1-43.9 [facility] Erythrocyte distribution width (RBC) [Ratio] 13.8 % 11.6-14.6 [facility] Immature granulocytes/100 WBC (Bld) 0.300 % 0.0-0.9 [facility] Comment on above: IG% - Immature Granu locytes (promyelocytes, myelocytes and metamyelocytes) > 1% indicates that a LEFT SHIFT is Present. MCH (RBC) [Entitic mass] 27.0 pg 27.0-32.0 [facility] Nucleated RBC/100 WBC (Bld) [Ratio] 0 % 0-5 [facility] MCHC Auto (RBC) [Mass/Vol]Or dered By: ED PROVIDER on 06-01-2022 MCHC (RBC) [Mass/Vol] 31.5 g/dL 32-36 [facility] Mucus LM Ql (Urine sed)Order ed By: Dr. Younger on 06-01-2022 Mucus Ql (Urine sed) 0 SEEN /hpf [facility] Nitrite Test strip Ql (U)Ord ered By: Dr. Younger on 06-01-2022 Nitrite Ql (U) Negative Negative [facility] No Panel InformationOrdered By: ED PROVIDER on 06-01-2022 Estimated GFR (MDRD) Amer 77 mL/min >60 [facility] Comment on above: GFR Calc Estimated GFR (MDRD) Non-Af Amer 64 mL/min >60 [facility] Comment on above: Non- GFR Calc Platelets bldOrdered By: ED PROVIDER on 06-01-2022 Platelets (Bld) [#/Vol] 248 10*3/uL 150-450 [facility] Protein Test strip Ql (U)Ord ered By: Dr. Younger on 06-01-2022 Protein Ql (U) 30 mg/dl Negative [facility] Serum or plasma albumin blanco urement (mass/volume)Ordered By: Dr. Younger on 06-01-2022 Albumin [Mass/Vol] 2.3 g/dL 3.2-5.0 [facility] Serum or plasma calcium blanco urement (mass/volume)Ordered By: ED PROVIDER on 06-01-2022 Calcium [Mass/Vol] 8.6 mg/dL 8.5-10.1 [facility] Serum or plasma creatinine m easurement (mass/volume)Ordered By: ED PROVIDER on 06-01-2022 Creatinine [Mass/Vol] 0.91 mg/dL 0.55-1.02 [facility] Comment on above: The validity of the calculated GFR & GFRAA in patients over 70 years has not been determined. Clinical correlation is essential. Serum or plasma urea nitroge n measurement (mass/volume)Ordered By: ED PROVIDER on 06-01-2022 Urea nitrogen [Mass/Vol] 30 mg/dL 7-18 [facility] Squamous epithelial cells de tection in urine sediment by light microscopyOrdered By: Dr. Younger on 06-01-2022 Epithelial cells.squamous LM Ql (Urine sed) 0-5 SEEN /hpf 5-10 [facility] Thin prep Papanicolaou smear with manual screeningOrdered By: Dr. Younger on 06-01-2022 Thin prep Papanicolaou smear with manual screening 75 U/L 15-37 [facility] Thin prep Papanicolaou smear with manual screeningOrdered By: ED PROVIDER on 06-01-2022 Thin prep Papanicolaou smear with manual screening 1 5-15 [facility] Urine blood detectionOrdered By: Dr. Younger on 06-01-2022 RBC Ql (U) Negative Negative [facility] RBC Ql (U) 0 SEEN /hpf 0-5 [facility] Urine clarityOrdered By: Dr. Younger on 06-01-2022 Clarity (U) Sl. Cloudy Clear [facility] Urine color determinationOrd ered By: Dr. Younger on 06-01-2022 Color (U) Yellow Yellow [facility] Urine glucose detectionOrder ed By: Dr. Younger on 06-01-2022 Glucose Ql (U) Normal mg/dl Normal [facility] Urine leukocyte esterase det ection by dipstickOrdered By: Dr. Younger on 06-01-2022 Leukocyte esterase Test strip Ql (U) 25 /ul Negative [facility] Urine pHOrdered By: Dr. Jacqueline delgado on 06-01-2022 pH (U) 5.0 [pH] 5.0 - 8.0 [facility] Urine sediment bacteria coun t by microscopy (number/high power field)Ordered By: Dr. Younger on 06-01-2022 Bacteria LM.HPF (Urine sed) [#/Area] 0 /[HPF] None Seen [facility] Urine specific gravity measu rementOrdered By: Dr. Younger on 06-01-2022 Specific gravity (U) [Rel density] 1.015 1.002-1.030 [facility] Urobilinogen Auto test strip Ql (U)Ordered By: Dr. Younger on 06-01-2022 Urobilinogen Ql (U) 1 mg/dl Normal [facility] Absolute lymphocyte countOrd ered By: Dr. Pack on 05-13-2022 Lymphocytes Auto (Unsp spec) [#/Vol] 1.03 10*3/uL 0.83-4.51 [facility] Basophil percentageOrdered B y: Dr. Pack on 05-13-2022 Basophils/100 WBC (Bld) 0.8 % 0-1 [facility] Chloride [Moles/Vol] 106 mmol/L 98-107 [facility] Eosinophils/100 WBC (Bld) 4.1 % 0-5 [facility] Glucose [Mass/Vol] 102 mg/dL 74-106 [facility] Comment on above: Fasting Glucose resu lt from 100 to 125 mg/dL suggests IMPAIRED HOMEOSTASIS per A.D.A. criteria. Neutrophils (Bld) [#/Vol] 3.0 10*3/uL 2.0-7.7 [facility] Neutrophils/100 WBC (Bld) 61.7 % 47-70 [facility] Potassium [Moles/Vol] 3.9 mmol/L 3.5-5.1 [facility] Sodium [Moles/Vol] 139 mmol/L 136-145 [facility] WBC (Bld) [#/Vol] 4.8 10*3/uL 4.4-11.0 [facility] Blood erythrocytes count (nu mber/volume)Ordered By: Dr. Pack on 05-13-2022 RBC (Bld) [#/Vol] 3.19 10*6/uL 4.2-5.4 [facility] Blood hemoglobin measurement (mass/volume)Ordered By: Dr. Pack on 05-13-2022 Hemoglobin (Bld) [Mass/Vol] 8.7 g/dL 12.0-15.0 [facility] Blood lymphocytes/100 leukoc ytesOrdered By: Dr. Pack on 05-13-2022 Lymphocytes/100 WBC (Bld) 21.4 % 19-41 [facility] Blood monocytes/100 leukocyt esOrdered By: Dr. Pack on 05-13-2022 Monocytes/100 WBC (Bld) 11.8 % 0-10 [facility] Blood platelet mean volumeOr dered By: Dr. Pack on 05-13-2022 Platelet mean volume (Bld) [Entitic vol] 11.9 fL 6.2-12.0 [facility] Determination of erythrocyte mean corpuscular volume (MCV)Ordered By: Dr. Pack on 05-13-2022 MCV (RBC) [Entitic vol] 89.0 fL 81-99 [facility] Glucose Glucometer (BldC) [M ass/Vol]Ordered By: Dr. Pack on 05-13-2022 Glucose [Mass/Vol] 131 mg/dL 74-106 [facility] Comment on above: MANAGEMENT OF PATIEN T CARE PER NURSING PROTOCOL Hematocrit Auto (Bld) [Volum e fraction]Ordered By: Dr. Pack on 05-13-2022 Hematocrit (Bld) [Volume fraction] 28.4 % 37-47 [facility] INR in Blood by Coagulation assayOrdered By: Dr. Gill on 05-13-2022 INR Coag (Bld) [Relative time] 1.2 {INR} [facility] Iron measurement (mass/mass) Ordered By: Dr. Pack on 05-13-2022 Iron (Unsp spec) [Mass/Mass] 39 ug/dL 50-170 [facility] Laboratory - Chemistry and C hemistry - challengeOrdered By: Dr. Pack on 05-13-2022 CO2 [Moles/Vol] 28.0 mmol/L 21.0-32.0 [facility] Urea nitrogen/Creatinine [Mass ratio] 23.3 mg/mg 10-20 [facility] Laboratory - CoagulationOrde red By: Dr. Gill on 05-13-2022 aPTT Coag (Bld) [Time] 34.4 s 24.1-36.2 [facility] PT Coag (PPP) [Time] 14.7 s 11.7-14.9 [facility] Laboratory - Hematology and Cell countsOrdered By: Dr. Pack on 05-13-2022 Erythrocyte distribution width (RBC) [Entitic vol] 42.1 fL 35.1-43.9 [facility] Erythrocyte distribution width (RBC) [Ratio] 13.0 % 11.6-14.6 [facility] Immature granulocytes/100 WBC (Bld) 0.200 % 0.0-0.9 [facility] Comment on above: IG% - Immature Granu locytes (promyelocytes, myelocytes and metamyelocytes) > 1% indicates that a LEFT SHIFT is Present. MCH (RBC) [Entitic mass] 27.3 pg 27.0-32.0 [facility] Nucleated RBC/100 WBC (Bld) [Ratio] 0 % 0-5 [facility] MCHC Auto (RBC) [Mass/Vol]Or dered By: Dr. Pack on 05-13-2022 MCHC (RBC) [Mass/Vol] 30.6 g/dL 32-36 [facility] No Panel InformationOrdered By: Dr. Pack on 05-13-2022 Estimated Creatinine Clearance Calc 37.10 ml/min [facility] Estimated GFR (MDRD) Amer 82 mL/min >60 [facility] Comment on above: GFR Calc Estimated GFR (MDRD) Non-Af Amer 68 mL/min >60 [facility] Comment on above: Non- GFR Calc Total Iron Binding Capacity 406 ug/dL 250-450 [facility] Platelets bldOrdered By: Dr. Pack on 05-13-2022 Platelets (Bld) [#/Vol] 178 10*3/uL 150-450 [facility] Serum or plasma calcium blanco urement (mass/volume)Ordered By: Dr. Pack on 05-13-2022 Calcium [Mass/Vol] 9.1 mg/dL 8.5-10.1 [facility] Serum or plasma creatinine m easurement (mass/volume)Ordered By: Dr. Pack on 05-13-2022 Creatinine [Mass/Vol] 0.86 mg/dL 0.55-1.02 [facility] Comment on above: The validity of the calculated GFR & GFRAA in patients over 70 years has not been determined. Clinical correlation is essential. Serum or plasma ferritin ellen surement (mass/volume)Ordered By: Dr. Pack on 05-13-2022 Ferritin [Mass/Vol] 17 ng/mL 8-252 [facility] Serum or plasma iron saturat ion measurement (mass fraction)Ordered By: Dr. Pack on 05-13-2022 Iron saturation [Mass fraction] 9.6 % 15.0-55.0 [facility] Serum or plasma urea nitroge n measurement (mass/volume)Ordered By: Dr. Pack on 05-13-2022 Urea nitrogen [Mass/Vol] 20 mg/dL 7-18 [facility] Thin prep Papanicolaou smear with manual screeningOrdered By: Dr. Pack on 05-13-2022 Thin prep Papanicolaou smear with manual screening 5 5-15 [facility] Whole blood hemoglobin A1c/t otal hemoglobin ratio (mass fraction)Ordered By: Dr. Gill on 05-13-2022 HbA1c (Bld) [Mass fraction] 5.7 % 3.8-5.6 [facility] Comment on above: Normal < 5.7 % Predi abetic 5.7 - 6.4 % Diabetic >or= 6.5 % Please note range changes. Laboratory - Chemistry and C hemistry - challengeon 02-23-2022 Glucose [Mass/Vol] 119 mg/dL High 70 - 100 [facility] Panel Informationon 02-23 Interpretation and review of laboratory results Abnormal [facility] Performed by: JOSE JUAN ID: [id number] [facility] CT Head or Brain w/o Contras ton 05-13-2021 CT Head or Brain w/o Contrast [facility]: [id number] Tomography ACCESSION EXAM DATE/TIME PROCEDURE ORDERING PROVIDER [id number] 05/13/2021 16:[address] Head or Brain w/o ROYCE KOEHLER Contrast CPT code 46492 Reason For Exam (CT Head or Brain [...] Transcribed Date and Time: 05/14/2021 8:13 Normal [facility] Comp Metabolic Panelon 12-30 ALP [Catalytic activity/Vol] 157 U/L High 38-126 [facility] Comment on above: Performed By: #### C MP3 #### [facility] [address] [place] [address] ALT [Catalytic activity/Vol] 45 U/L High 0-34 [facility] Comment on above: Result Comment: The ALT test is performed by an updated assay method. Please note that the reference intervals have been changed and are now sex specific. Performed By: #### C MP3 #### [facility] [address] [place] [address] Calcium [Mass/Vol] 10.0 mg/dL Normal 8.4-10.4 [facility] Comment on above: Performed By: #### C MP3 #### [facility] [address] [place] [address] Glucose [Mass/Vol] 109 mg/dL High 70-100 [facility] Comment on above: Performed By: #### C MP3 #### [facility] [address] [place] [address] Urea nitrogen [Mass/Vol] 19 mg/dL Normal 9-20 [facility] Comment on above: Performed By: #### C MP3 #### [facility] [address] [place] [address] Anion gap [Moles/Vol] 2 mmol/L Low 3-13 [facility] Comment on above: Performed By: #### C MP3 #### [facility] [address] [place] [address] AST [Catalytic activity/Vol] 65 U/L High 15-46 [facility] Comment on above: Performed By: #### C MP3 #### [facility] [address] [place] [address] Bilirubin [Mass/Vol] 0.4 mg/dL Normal 0.2-1.3 [facility] Comment on above: Performed By: #### C MP3 #### [facility] [address] [place] [address] CO2 [Moles/Vol] 34 mmol/L High 22-30 [facility] Comment on above: Performed By: #### C MP3 #### [facility] [address] [place] [address] Creatinine [Mass/Vol] 0.96 mg/dL Normal 0.52-1.25 [facility] Comment on above: Performed By: #### C MP3 #### [facility] [address] [place] [address] GFR/1.73 sq M.predicted among blacks MDRD (S/P/Bld) [Vol rate/Area] 65.6 mL/min/{1.73_m2} Normal >60 [facility] Comment on above: Performed By: #### C MP3 #### [facility] [address] [place] [address] GFR/1.73 sq M.predicted among non-blacks MDRD (S/P/Bld) [Vol rate/Area] 56.6 mL/min/{1.73_m2} Abnormal >60 [facility] Comment on above: Result Comment: KDIG O [...] secretion. Performed By: #### C MP3 #### [facility] [address] [place] [address] Protein [Mass/Vol] 7.7 g/dL Normal 6.3-8.2 [facility] Comment on above: Performed By: #### C MP3 #### [facility] [address] [place] [address] Potassium [Moles/Vol] 3.7 mmol/L Normal 3.5-5.1 [facility] Comment on above: Performed By: #### C MP3 #### [facility] [address] [place] [address] Sodium [Moles/Vol] 142 mmol/L Normal 135-145 [facility] Comment on above: Performed By: #### C MP3 #### [facility] [address] [place] [address] Albumin [Mass/Vol] 4.0 g/dL Normal 3.5-5.0 [facility] Comment on above: Performed By: #### C MP3 #### [facility] [address] [place] [address] Chloride [Moles/Vol] 105 mmol/L Normal 98-107 [facility] Comment on above: Performed By: #### C MP3 #### [facility] [address] [place] [address] Hemogramon 11-08-2020 Erythrocyte distribution width (RBC) [Ratio] 12.5 % Normal 11.5-14.5 [facility] Comment on above: Performed By: #### H SARTHAK LIPJuan #### [facility] [address] [place] [address] Hematocrit (Bld) [Volume fraction] 37.0 % Normal 35.0-47.0 [facility] Comment on above: Performed By: #### H SARTHAK LIPD2 #### [facility] [address] [place] [address] Hemoglobin (Bld) [Mass/Vol] 12.6 g/dL Normal 11.7-16.0 [facility] Comment on above: Performed By: #### H EMOG, LIPD2 #### [facility] [address] [place] [address] MCH (RBC) [Entitic mass] 31.7 pg Normal 26.0-34.0 [facility] Comment on above: Performed By: #### H EMOG, LIPD2 #### [facility] [address] [place] [address] MCHC 34.1 % Normal 32.0-36.0 [facility] Comment on above: Performed By: #### H EMOG, LIPD2 #### [facility] [address] [place] [address] MCV (RBC) [Entitic vol] 92.9 fL Normal 79.0-98.0 [facility] Comment on above: Performed By: #### H EMOG, LIPD2 #### [facility] [address] [place] [address] Platelet mean volume (Bld) [Entitic vol] 9.4 fL Normal 7.4-10.4 [facility] Comment on above: Performed By: #### H EMOG, LIPD2 #### [facility] [address] [place] [address] Platelets (Bld) [#/Vol] 208 10*3/uL Normal 140-440 [facility] Comment on above: Performed By: #### H EMOG, LIPD2 #### [facility] [address] [place] [address] RBC (Bld) [#/Vol] 3.98 10*6/uL Normal 3.80-5.20 [facility] Comment on above: Performed By: #### H EMOG, LIPD2 #### [facility] [address] [place] [address] WBC (Bld) [#/Vol] 7.3 10*3/uL Normal 3.6-10.7 [facility] Comment on above: Performed By: #### H EMOG, LIPD2 #### [facility] [address] [place] [address] Lipid Panelon 11-08-2020 Chol/HDL 2 Normal [facility] Comment on above: Result Comment: Ref Range: < 3 Low Risk for CHD 3-6 Mod Risk for CHD > 6 High Risk for CHD Performed By: #### H EMOG, LIPD2 #### [facility] [address] [place] [address] Cholesterol in HDL [Mass/Vol] 61 mg/dL High 40-60 [facility] Comment on above: Performed By: #### H EMOG, LIPD2 #### [facility] [address] [place] [address] Low Density Lipoprotein 53 mg/dL Normal <100 [facility] Comment on above: Performed By: #### H EMOG, LIPD2 #### [facility] [address] [place] [address] Triglyceride [Mass/Vol] 63 mg/dL Normal <150 [facility] Comment on above: Performed By: #### H EMOG, LIPD2 #### [facility] [address] [place] [address] Cholesterol [Mass/Vol] 127 mg/dL Normal < 200 [facility] Comment on above: Performed By: #### H EMOG, LIPD2 #### [facility] [address] [place] [address] US ABDOMEN LIMITEDOrdered By : Mita Morton on 08-20-2020 Patient Name: PREMA VILLALPANDO Ultrasound ACCESSION EXAM DATE/TIME PROCEDURE ORDERING PROVIDER [id number] 08/20/2020 09:18 EDT US Abdomen Limited DO MORTON LISA CPT code 39604 Reason For Exam (US Abdomen Limited) elevated [...] Time: 08/20/2020 9:18 [facility] Work Phone: [facility], [facility] Incoming Radiology Results From [facility] - 08/20/2020 9:18 AM EDT Patient Name: PREMA VILLALPANDO Ultrasound ACCESSION EXAM DATE/TIME PROCEDURE ORDERING PROVIDER [id number] 08/20/2020 09:18 EDT US Abdomen Limited ESTERLE, DO, MITA CPT code 06724 Reason For Exam (US Abdomen Limited) elevated [...] Abdomen Limited Patient Name: PREMA VILLALPANDO Ultrasound ACCESSION EXAM DATE/TIME PROCEDURE ORDERING PROVIDER [id number] 08/20/2020 09:18 EDT US Abdomen Limited ESTERLE, DO, MITA CPT code 71340 Reason For Exam (US Abdomen Limited) elevated [...] Transcribed Date and Time: 08/20/2020 9:18 Normal [facility] Hepatic Functionon 1 ALP [Catalytic activity/Vol] 173 U/L High 38-126 [facility] Comment on above: Performed By: #### L FT3 #### [facility] [address] [place] [address] ALT [Catalytic activity/Vol] 62 U/L High 0-34 [facility] Comment on above: Result Comment: The ALT test is performed by an updated assay method. Please note that the reference intervals have been changed and are now sex specific. Performed By: #### L FT3 #### [facility] [address] [place] [address] AST [Catalytic activity/Vol] 76 U/L High 15-46 [facility] Comment on above: Performed By: #### L FT3 #### [facility] [address] [place] [address] Bilirubin [Mass/Vol] 0.5 mg/dL Normal 0.2-1.3 [facility] Comment on above: Performed By: #### L FT3 #### [facility] [address] [place] [address] Bilirubin.indirect [Mass/Vol] 0.0 mg/dL Normal 0.0-0.3 [facility] Comment on above: Performed By: #### L FT3 #### [facility] [address] [place] [address] Protein [Mass/Vol] 7.5 g/dL Normal 6.3-8.2 [facility] Comment on above: Performed By: #### L FT3 #### [facility] [address] [place] [address] Albumin [Mass/Vol] 4.0 g/dL Normal 3.5-5.0 [facility] Comment on above: Performed By: #### L FT3 #### [facility] [address] [place] [address] Medical Cytology 1 Medical Cytology [facility] [id number] DEPARTMENT OF PATHOLOGY AND [facility] LABORATORY MEDICINE [address] [place] [address] FINAL MEDICAL CYTOLOGY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 placed at [facility], at that time she was hypoxemic [...] with the last 6 month at [facility] per daughter Family history Lung disease in father, mother had dementia Allergy She thinks that she is allergic to some sort of blood thinner when she was in the hospital in February 2019 at [facility] but is not sure REVIEW OF [...] 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 Janusz Schwartz MD Hematology-Oncology [place] [facility] Outpatient Medication Profile: * [...] mammogram. Note Recipients: Mita Morton MD - [phone] Select Yes when ready to send to Provider(s) Listed Above: Note sent to providers named above Electronic Signatures: Janusz Schwartz) (Signed 02-Jun-2019 13:20) Authored: Patient Visit Information, History of Present Illness, Allergies and Outpatient Medication Profile, Problem List, Social History, Physical Exam, Patient Instructions, To Send Document via Auto Fax Last Updated: 02-Jun-2019 13:20 by Janusz Schwartz) Normal [facility] CT Abdomen Pelvis W Contrast on 04-04-2019 Patient Name: PREMA VILLALPANDO ---CT--- Exam Date/Time 04/04/2019 10:45:[address] Abdomen/Pelvis w/ IV Contrast (IV Onl Ordering Physician DO MORTON LISA Accession Number [id number] CPT4 Codes 29151 (CT Abdomen/Pelvis w/ IV Contrast (IV Onl) [...] JASON Transcribed Date and Time: 04/04/2019 2:56 [place], [place] Kash, [facility] Incoming Radiology Results From [facility] - 04/04/2019 2:56 PM EST Patient Name: PREMA VILLALPANDO ---CT--- Exam Date/Time 04/04/2019 10:45:[address] Abdomen/Pelvis w/ IV Contrast (IV Onl Ordering Physician DO MORTON LISA Accession Number [id number] CPT4 Codes 56444 (CT Abdomen/Pelvis w/ IV Contrast (IV Onl) [...] JASON Transcribed Date and Time: 04/04/2019 2:56 [place] CT CHEST W CONTRASTon 2019 Patient Name: PREMA VILLALPANDO ---CT--- Exam Date/Time 04/04/2019 10:45:[address] Chest w/ Contrast Ordering Physician KYLEDO SÁNCHEZ LISA Accession Number [id number] CPT4 Codes 44577 (), Q9967 (CT ISOVUE 370MG/ML&[id number]&ML&1 ) Reason For Exam abnormal weight loss [...] JASON Transcribed Date and Time: 04/04/2019 2:56 [facility], [place] Kash, [facility] Incoming Radiology Results From [facility] - 04/04/2019 2:56 PM EST Patient Name: PREMA VILLALPANDO ---CT--- Exam Date/Time 04/04/2019 10:45:[address] Chest w/ Contrast Ordering Physician DO MORTON LISA Accession Number [id number] CPT4 Codes 78846 (), Q9967 (CT ISOVUE 370MG/ML&[id number]&ML&1 ) Reason For Exam abnormal weight loss [...] JASON Transcribed Date and Time: 04/04/2019 2:56 [place] XR ELBOW MINIMUM 3 VIEWS [facility] 04-01-2019 XR ELBOW MINIMUM 3 VIEWS [...] 04/01/2019 8:02:36 AM Ordering Provider:Rakan Skelton [facility] ([place]) XR HAND MINIMUM 3 VIEWS [facility] 04-01-2019 XR HAND MINIMUM 3 VIEWS RIGHT [...] Date: 04/01/2019 8:04:33 AM Ordering Provider:Rakan Skelton Normal [facility] ([place]) Creatinine, Serumon 03-31-19 Creatinine [Mass/Vol] 0.77 mg/dL 0.52 - 1.25 mg/dL [place] EGFR IF NonAfrican [place]oc[place] >60.0 >60 mL/min [place] Comment on above: Source- MDRD equatio n with creatinine calibration to IDMS(NKDEP) eGFR not recommended for drug dose adjustment GFR/1.73 sq M predicted among blacks MDRD (S/P/Bld) [Vol rate/Area] mL/min/{1.73_m2} >60 mL/min [place] Test Performed by [facility], [facility] , [address] HEAD OR BRAIN W/O CONTRAS [...] Sign Date: 02/24/2019 8:54:43 PM Ordering Provider:Rakan Swift [facility] ([place]) CBC Auto DifferentialOrdered By: Tj Muniz on 02-18-2019 Absolute Baso # 0.1 10*3/uL 0 - 0.2 10*3/uL [facility] Work Phone: [phone] Absolute Neut # 10.3 10*3/uL High 1.8 - 7 10*3/uL [facility] Work Phone: [phone] Basophils/100 WBC (Bld) 0.5 % 0 - 2 % [facility] Work Phone: [phone] Eosinophils (Bld) [#/Vol] 0.2 10*3/uL 0 - 0.5 10*3/uL [facility] Work Phone: [phone] Eosinophils/100 WBC (Bld) 1.2 % 1 - 6 % [facility] Work Phone: [phone] Erythrocyte distribution width (RBC) [Ratio] 12.7 % 11.5 - 14.5 % [facility] Work Phone: [phone] Granulocytes/100 WBC (Bld) 78.0 % 40 - 80 % [facility] Work Phone: [phone] Hematocrit (Bld) [Volume fraction] 32.8 % Low 35 - 47 % [facility] Work Phone: [phone] Hemoglobin (Bld) [Mass/Vol] 11.3 g/dL Low 11.7 - 16 g/dL [facility] Work Phone: [phone] Interpretation and review of laboratory results Abnormal [facility] Work Phone: [phone] Lymphocytes (Bld) [#/Vol] 1.9 10*3/uL 1 - 4.3 10*3/uL [facility] Work Phone: [phone] Lymphocytes/100 WBC (Bld) 14.8 % Low 20 - 40 % [facility] Work Phone: [phone] MCH (RBC) [Entitic mass] 33.4 pg 26 - 34 pg [facility] Work Phone: [phone] MCHC 34.3 % 32 - 36 % [facility] Work Phone: [phone] MCV (RBC) [Entitic vol] 97.3 fL 79 - 98 fL [facility] Work Phone: [phone] Monocytes (Bld) [#/Vol] 0.7 10*3/uL 0 - 0.8 10*3/uL [facility] Work Phone: [phone] Monocytes/100 WBC (Bld) 5.5 % 2 - 10 % [facility] Work Phone: [phone] Platelet mean volume (Bld) [Entitic vol] 10.6 fL High 7.4 - 10.4 fL [facility] Work Phone: [phone] Platelets (Bld) [#/Vol] 207 10*3/uL 140 - 440 10*3/uL [facility] Work Phone: [phone] RBC (Bld) [#/Vol] 3.37 10*6/uL Low 3.8 - 5.2 10*6/uL [facility] Work Phone: [phone] WBC (Bld) [#/Vol] 13.1 10*3/uL High 3.6 - 10.7 10*3/uL [facility] Work Phone: [phone] Test Performed by [facility], [address] [place] [address] [facility]: [phone] Hemogram w/ Autodiffon 02-18 Abs Baso Cnt 0.1 10*3/uL Normal 0.0-0.2 [facility] Comment on above: Performed By: #### H EMDF, BMP3, LFT3, LIPA4, TROPN #### [facility] [employer] [address] [place] [address] Abs Neutrophile Cnt 10.3 10*3/uL High 1.8-7.0 [facility] Comment on above: Performed By: #### H EMDF, BMP3, LFT3, LIPA4, TROPN #### [facility] [employer] [facility] [address] [place] [address] Basophils/100 WBC (Bld) 0.5 % Normal 0.0-2.0 [facility] Comment on above: Performed By: #### H EMDF, BMP3, LFT3, LIPA4, TROPN #### [address] Eosinophils (Bld) [#/Vol] 0.2 10*3/uL Normal 0.0-0.5 [facility] Comment on above: Performed By: #### H EMDF, BMP3, LFT3, LIPA4, TROPN #### [address] Eosinophils/100 WBC (Bld) 1.2 % Normal 1.0-6.0 [facility] Comment on above: Performed By: #### H EMDF, BMP3, LFT3, LIPA4, TROPN #### [address] Erythrocyte distribution width (RBC) [Ratio] 12.7 % Normal 11.5-14.5 [facility] Comment on above: Performed By: #### H EMDF, BMP3, LFT3, LIPA4, TROPN #### [address] Granulocytes/100 WBC (Bld) 78.0 % Normal 40.0-80.0 [facility] Comment on above: Performed By: #### H EMDF, BMP3, LFT3, LIPA4, TROPN #### [address] Hematocrit (Bld) [Volume fraction] 32.8 % Low 35.0-47.0 [facility] Comment on above: Performed By: #### H EMDF, BMP3, LFT3, LIPA4, TROPN #### [address] Hemoglobin (Bld) [Mass/Vol] 11.3 g/dL Low 11.7-16.0 [facility] Comment on above: Performed By: #### H EMDF, BMP3, LFT3, LIPA4, TROPN #### [address] Lymphocytes (Bld) [#/Vol] 1.9 10*3/uL Normal 1.0-4.3 [facility] Comment on above: Performed By: #### H EMDF, BMP3, LFT3, LIPA4, TROPN #### [address] Lymphocytes/100 WBC (Bld) 14.8 % Low 20.0-40.0 [facility] Comment on above: Performed By: #### H EMDF, BMP3, LFT3, LIPA4, TROPN #### [address] MCH (RBC) [Entitic mass] 33.4 pg Normal 26.0-34.0 [facility] Comment on above: Performed By: #### H EMDF, BMP3, LFT3, LIPA4, TROPN #### [address] MCHC (RBC) [Mass/Vol] 34.3 % Normal 32.0-36.0 [facility] Comment on above: Performed By: #### H EMDF, BMP3, LFT3, LIPA4, TROPN #### [address] MCV (RBC) [Entitic vol] 97.3 fL Normal 79.0-98.0 [facility] Comment on above: Performed By: #### H EMDF, BMP3, LFT3, LIPA4, TROPN #### [address] Monocytes (Bld) [#/Vol] 0.7 10*3/uL Normal 0.0-0.8 [facility] Comment on above: Performed By: #### H EMDF, BMP3, LFT3, LIPA4, TROPN #### [address] Monocytes/100 WBC (Bld) 5.5 % Normal 2.0-10.0 [facility] Comment on above: Performed By: #### H EMDF, BMP3, LFT3, LIPA4, TROPN #### [address], [place] Platelet mean volume (Bld) [Entitic vol] 10.6 fL High 7.4-10.4 [facility] Comment on above: Performed By: #### H EMDF, BMP3, LFT3, LIPA4, TROPN #### [address] [place] [address] Platelets (Bld) [#/Vol] 207 10*3/uL Normal 140-440 [facility] Comment on above: Performed By: #### H EMDF, BMP3, LFT3, LIPA4, TROPN #### [address] [address] [place], [place] RBC (Bld) [#/Vol] 3.37 10*6/uL Low 3.80-5.20 [facility] Comment on above: Performed By: #### H EMDF, BMP3, LFT3, LIPA4, TROPN #### [address] WBC (Bld) [#/Vol] 13.1 10*3/uL High 3.6-10.7 [facility] Comment on above: Performed By: #### H EMDF, BMP3, LFT3, LIPA4, TROPN #### [address] [place] [address] Lipaseon 02-18-2019 Lipase [Catalytic activity/Vol] 211 U/L Normal 23-300 [facility] Comment on above: Performed By: #### H EMDF, BMP3, LFT3, LIPA4, TROPN #### [address] [place], [place] LipaseOrdered By: Tj Muniz on 02-18-2019 Lipase [Catalytic activity/Vol] 211 U/L 23 - 300 U/L [facility] Work Phone: Test Performed by [facility], [facility] [place] [address] [facility] Work Phone: Basic Metabolic Panelon 02-08 Calcium [Mass/Vol] 8.6 mg/dL Normal 8.4-10.4 [facility] Comment on above: Performed By: #### H EMDF, BMP3, LFT3, LIPA4, TROPN #### [address] [place], [place] Glucose [Mass/Vol] 125 mg/dL High 70-100 [facility] Comment on above: Performed By: #### H EMDF, BMP3, LFT3, LIPA4, TROPN #### [address] [address] [place], [place] Urea nitrogen [Mass/Vol] 21 mg/dL High 7-20 [facility] Comment on above: Performed By: #### H EMDF, BMP3, LFT3, LIPA4, TROPN #### [address] [place], [place] Anion gap [Moles/Vol] 9 Normal [facility] Comment on above: Performed By: #### H EMDF, BMP3, LFT3, LIPA4, TROPN #### [address] [place], [place] CO2 [Moles/Vol] 24 mmol/L Normal 22-30 [facility] Comment on above: Performed By: #### H EMDF, BMP3, LFT3, LIPA4, TROPN #### [address] [place], [place] Creatinine [Mass/Vol] 0.81 mg/dL Normal 0.52-1.25 [facility] Comment on above: Performed By: #### H EMDF, BMP3, LFT3, LIPA4, TROPN #### [address] [place], [place] GFR/1.73 sq M predicted among blacks MDRD (S/P/Bld) [Vol rate/Area] mL/min/{1.73_m2} Normal >60 [facility] Comment on above: Performed By: #### H EMDF, BMP3, LFT3, LIPA4, TROPN #### [address] [address] [place], [place] GFR/1.73 sq M predicted among non-blacks MDRD (S/P/Bld) [Vol rate/Area] mL/min/{1.73_m2} Normal >60 [facility] Comment on above: Result Comment: Sour ce- MDRD equation with creatinine calibration to IDMS(NKDEP) eGFR not recommended for drug dose adjustment Performed By: #### H EMDF, BMP3, LFT3, LIPA4, TROPN #### [facility] [address] [place] [address] Chloride [Moles/Vol] 106 mmol/L Normal 98-107 [facility] Comment on above: Performed By: #### H EMDF, BMP3, LFT3, LIPA4, TROPN #### [address] [place], [place] Potassium [Moles/Vol] 4.1 mmol/L Normal 3.5-5.1 [facility] Comment on above: Performed By: #### H EMDF, BMP3, LFT3, LIPA4, TROPN #### [address] [place], [place] Sodium [Moles/Vol] 139 mmol/L Normal 135-145 [facility] Comment on above: Performed By: #### H EMDF, BMP3, LFT3, LIPA4, TROPN #### [address] [place] [address] Basic Metabolic PanelOrdered By: Tj Muniz on 02-17-2019 Anion gap [Moles/Vol] 9 mmol/L [facility] Work Phone: Calcium [Mass/Vol] 8.6 mg/dL 8.4 - 10. 4 mg/dL [facility] Work Phone: Chloride [Moles/Vol] 106 mmol/L 98 - 10 7 mmol/L [facility] Work Phone: [phone] CO2 [Moles/Vol] 24 mmol/L 22 - 30 mmol/L [facility] Work Phone: Creatinine [Mass/Vol] 0.81 mg/dL 0.52 - 1.25 mg/dL [facility] Work Phone: [phone] EGFR IF NonAfrican Moroccan >60.0 >60 mL/min [facility] Work Phone: [phone] Comment on above: Source- MDRD equatio n with creatinine calibration to IDMS(NKDEP) eGFR not recommended for drug dose adjustment GFR/1.73 sq M.predicted among blacks MDRD (S/P/Bld) [Vol rate/Area] mL/min/{1.73_m2} >60 mL/min [facility] Work Phone: [phone]) 222 Glucose [Mass/Vol] 125 mg/dL High 70 - 100 mg/dL [facility] Work Phone: [phone]) 222 Potassium [Moles/Vol] 4.1 mmol/L 3.5 - 5.1 mmol/L [facility] Work Phone: [phone]) 222 Sodium [Moles/Vol] 139 mmol/L 135 - 145 mmol/L [facility] Work Phone: ) 222 Urea nitrogen [Mass/Vol] 21 mg/dL High 7 - 20 mg/dL [facility] Work Phone: [phone]) 222 CBC Auto DifferentialOrdered By: Tj Muniz on 02-17-2019 Absolute Baso # 0.0 10*3/uL 0 - 0.2 10*3/uL [facility] Work Phone: [phone]) 222 Absolute Neut # 15.9 10*3/uL High 1.8 - 7 10*3/uL [facility] Work Phone: ) 222 Basophils/100 WBC (Bld) 0.3 % 0 - 2 % [facility] Work Phone: ) 222 Eosinophils (Bld) [#/Vol] 0.1 10*3/uL 0 - 0.5 10*3/uL [facility] Work Phone: ) 222 Eosinophils/100 WBC (Bld) 0.5 % Low 1 - 6 % [facility] Work Phone: [phone]) 222 Erythrocyte distribution width (RBC) [Ratio] 12.6 % 11.5 - 14.5 % [facility] Work Phone: ) 222 Granulocytes/100 WBC (Bld) 83.5 % High 40 - 80 % [facility] Work Phone: ) 222 Hematocrit (Bld) [Volume fraction] 34.3 % Low 35 - 47 % [facility] Work Phone: [phone]) 222 Hemoglobin (Bld) [Mass/Vol] 11.6 g/dL Low 11.7 - 16 g/dL [facility] Work Phone: [phone] Interpretation and review of laboratory results Abnormal [facility] Work Phone: [phone]() 222 Lymphocytes (Bld) [#/Vol] 1.7 10*3/uL 1 - 4.3 10*3/uL [facility] Work Phone: [phone]() 222 Lymphocytes/100 WBC (Bld) 9.1 % Low 20 - 40 % [facility] Work Phone: [phone]() 222 MCH (RBC) [Entitic mass] 32.7 pg 26 - 34 pg [facility] Work Phone: [phone]() 222 MCHC 33.9 % 32 - 36 % [facility] Work Phone: [phone]() 222 MCV (RBC) [Entitic vol] 96.5 fL 79 - 98 fL [facility] Work Phone: 1() 222 Monocytes (Bld) [#/Vol] 1.3 10*3/uL High 0 - 0.8 10*3/uL [facility] Work Phone: 1() 222 Monocytes/100 WBC (Bld) 6.6 % 2 - 10 % [facility] Work Phone: 1() 222 Platelet mean volume (Bld) [Entitic vol] 10.3 fL 7.4 - 10.4 fL [facility] Work Phone: [phone]() 222 Platelets (Bld) [#/Vol] 244 10*3/uL 140 - 440 10*3/uL [facility] Work Phone: [phone]() 222 RBC (Bld) [#/Vol] 3.56 10*6/uL Low 3.8 - 5.2 10*6/uL [facility] Work Phone: [phone] WBC (Bld) [#/Vol] 19.0 10*3/uL High 3.6 - 10.7 10*3/uL [facility] Work Phone: [phone] Test Performed by [facility], [address] [place] [address] [facility] Work Phone: [phone] Hemogram w/ Autodiffon 02-17 Abs Baso Cnt 0.0 10*3/uL Normal 0.0-0.2 [facility] Comment on above: Performed By: #### H EMDF, BMP3, LFT3, LIPA4, TROPN #### [address] Abs Neutrophile Cnt 15.9 10*3/uL High 1.8-7.0 [facility] Comment on above: Performed By: #### H EMDF, BMP3, LFT3, LIPA4, TROPN #### [address] Basophils/100 WBC (Bld) 0.3 % Normal 0.0-2.0 [facility] Comment on above: Performed By: #### H EMDF, BMP3, LFT3, LIPA4, TROPN #### [address] Eosinophils (Bld) [#/Vol] 0.1 10*3/uL Normal 0.0-0.5 [facility] Comment on above: Performed By: #### H EMDF, BMP3, LFT3, LIPA4, TROPN #### [address] Eosinophils/100 WBC (Bld) 0.5 % Low 1.0-6.0 [facility] Comment on above: Performed By: #### H EMDF, BMP3, LFT3, LIPA4, TROPN #### [address] Erythrocyte distribution width (RBC) [Ratio] 12.6 % Normal 11.5-14.5 [facility] Comment on above: Performed By: #### H EMDF, BMP3, LFT3, LIPA4, TROPN #### [address] Granulocytes/100 WBC (Bld) 83.5 % High 40.0-80.0 [facility] Comment on above: Performed By: #### H EMDF, BMP3, LFT3, LIPA4, TROPN #### [address], [place] Hematocrit (Bld) [Volume fraction] 34.3 % Low 35.0-47.0 [facility] Comment on above: Performed By: #### H EMDF, BMP3, LFT3, LIPA4, TROPN #### [address] Hemoglobin (Bld) [Mass/Vol] 11.6 g/dL Low 11.7-16.0 [facility] Comment on above: Performed By: #### H EMDF, BMP3, LFT3, LIPA4, TROPN #### [address] Lymphocytes (Bld) [#/Vol] 1.7 10*3/uL Normal 1.0-4.3 [facility] Comment on above: Performed By: #### H EMDF, BMP3, LFT3, LIPA4, TROPN #### [address] Lymphocytes/100 WBC (Bld) 9.1 % Low 20.0-40.0 [facility] Comment on above: Performed By: #### H EMDF, BMP3, LFT3, LIPA4, TROPN #### [address] MCH (RBC) [Entitic mass] 32.7 pg Normal 26.0-34.0 [facility] Comment on above: Performed By: #### H EMDF, BMP3, LFT3, LIPA4, TROPN #### [address] MCHC (RBC) [Mass/Vol] 33.9 % Normal 32.0-36.0 [facility] Comment on above: Performed By: #### H EMDF, BMP3, LFT3, LIPA4, TROPN #### [address] MCV (RBC) [Entitic vol] 96.5 fL Normal 79.0-98.0 [facility] Comment on above: Performed By: #### H EMDF, BMP3, LFT3, LIPA4, TROPN #### [facility] [address] [place], [place] Monocytes (Bld) [#/Vol] 1.3 10*3/uL High 0.0-0.8 [facility] Comment on above: Performed By: #### H EMDF, BMP3, LFT3, LIPA4, TROPN #### [facility] [address] [place], [place] Monocytes/100 WBC (Bld) 6.6 % Normal 2.0-10.0 [facility] Comment on above: Performed By: #### H EMDF, BMP3, LFT3, LIPA4, TROPN #### [address] [place], [place] Platelet mean volume (Bld) [Entitic vol] 10.3 fL Normal 7.4-10.4 [facility] Comment on above: Performed By: #### H EMDF, BMP3, LFT3, LIPA4, TROPN #### [address] [place], [place] Platelets (Bld) [#/Vol] 244 10*3/uL Normal 140-440 [facility] Comment on above: Performed By: #### H EMDF, BMP3, LFT3, LIPA4, TROPN #### [address] [place], [place] RBC (Bld) [#/Vol] 3.56 10*6/uL Low 3.80-5.20 [facility] Comment on above: Performed By: #### H EMDF, BMP3, LFT3, LIPA4, TROPN #### [address] [place], [place] WBC (Bld) [#/Vol] 19.0 10*3/uL High 3.6-10.7 [facility] Comment on above: Performed By: #### H EMDF, BMP3, LFT3, LIPA4, TROPN #### [address] [address] [place], [place] Hepatic Functionon 0 ALP [Catalytic activity/Vol] 75 U/L Normal 38-126 [facility] Comment on above: Performed By: #### H EMDF, BMP3, LFT3, LIPA4, TROPN #### [facility] [address] [place], [place] ALT [Catalytic activity/Vol] 60 U/L Normal 13-69 [facility] Comment on above: Performed By: #### H EMDF, BMP3, LFT3, LIPA4, TROPN #### [address] [place], [place] AST [Catalytic activity/Vol] 62 U/L High 15-46 [facility] Comment on above: Performed By: #### H EMDF, BMP3, LFT3, LIPA4, TROPN #### [address] [place], [place] Bilirubin [Mass/Vol] 0.5 mg/dL Normal 0.2-1.3 [facility] Comment on above: Performed By: #### H EMDF, BMP3, LFT3, LIPA4, TROPN #### [address] [place], [place] Bilirubin.direct [Mass/Vol] 0.0 mg/dL Normal 0.0-0.3 [facility] Comment on above: Performed By: #### H EMDF, BMP3, LFT3, LIPA4, TROPN #### [address] [place], [place] Protein [Mass/Vol] 5.9 g/dL Low 6.3-8.2 [facility] Comment on above: Performed By: #### H EMDF, BMP3, LFT3, LIPA4, TROPN #### [address] [place] Albumin [Mass/Vol] 3.2 g/dL Low 3.5-5.0 [facility] Comment on above: Performed By: #### H EMDF, BMP3, LFT3, LIPA4, TROPN #### [address] [address] [place], [place] Hepatic Function PanelOrdere d By: Tj Muniz on 02-17-2019 Albumin [Mass/Vol] 3.2 g/dL Low 3.5 - 5 g/dL [facility] Work Phone: 1 ALP [Catalytic activity/Vol] 75 U/L 38 - 126 U/L [facility] Work Phone: ALT [Catalytic activity/Vol] 60 U/L 13 - 69 U/L [facility] Work Phone: AST [Catalytic activity/Vol] 62 U/L High 15 - 46 U/L [facility] Work Phone: Bilirubin [Mass/Vol] 0.5 mg/dL 0.2 - 1 .3 mg/dL [facility] Work Phone: Bilirubin.indirect [Mass/Vol] 0.0 mg/dL 0 - 0.3 mg/dL [facility] Work Phone: Protein [Mass/Vol] 5.9 g/dL Low 6.3 - 8.2 g/dL [facility] Work Phone: Lipaseon 02-17-2019 Lipase [Catalytic activity/Vol] 586 U/L High 23-300 [facility] Comment on above: Performed By: #### H EMDF, BMP3, LFT3, LIPA4, TROPN #### [facility] [employer] [address] [place] [id number] LipaseOrdered By: Tj Muniz on 02-17-2019 Lipase [Catalytic activity/Vol] 586 U/L High 23 - 300 U/L [facility] Work Phone: [phone] Panel InformationOrdered By: Tj Muniz on 02-17-2019 Interpretation and review of laboratory results Abnormal [facility] Work Phone: [phone] Test Performed by [id number] [place] [address] Work Phone: [phone] Basic Metabolic Panelon Calcium [Mass/Vol] 9.4 mg/dL Normal 8.4-10.4 [facility] Comment on above: Performed By: #### H EMDF, BMP3, LFT3, LIPA4, TROPN #### [facility] [address] [place], [place] Glucose [Mass/Vol] 182 mg/dL High 70-100 [facility] Comment on above: Performed By: #### H EMDF, BMP3, LFT3, LIPA4, TROPN #### [facility] [address] [place], [place] Urea nitrogen [Mass/Vol] 13 mg/dL Normal 7-20 [facility] Comment on above: Performed By: #### H EMDF, BMP3, LFT3, LIPA4, TROPN #### [address] [place], [place] Anion gap [Moles/Vol] 11 Normal [facility] Comment on above: Performed By: #### H EMDF, BMP3, LFT3, LIPA4, TROPN #### [address] [place] CO2 [Moles/Vol] 25 mmol/L Normal 22-30 [facility] Comment on above: Performed By: #### H EMDF, BMP3, LFT3, LIPA4, TROPN #### [address] [place] Creatinine [Mass/Vol] 0.74 mg/dL Normal 0.52-1.25 [facility] Comment on above: Performed By: #### H EMDF, BMP3, LFT3, LIPA4, TROPN #### [address] [place], [place] GFR/1.73 sq M predicted among blacks MDRD (S/P/Bld) [Vol rate/Area] mL/min/{1.73_m2} Normal >60 [facility] Comment on above: Performed By: #### H EMDF, BMP3, LFT3, LIPA4, TROPN #### [address] [place] GFR/1.73 sq M predicted among non-blacks MDRD (S/P/Bld) [Vol rate/Area] mL/min/{1.73_m2} Normal >60 [facility] Comment on above: Result Comment: Sour ce- MDRD equation with creatinine calibration to IDMS(NKDEP) eGFR not recommended for drug dose adjustment Performed By: #### H EMDF, BMP3, LFT3, LIPA4, TROPN #### [address] [place] [address] Potassium [Moles/Vol] 4.2 mmol/L Normal 3.5-5.1 [facility] Comment on above: Performed By: #### H EMDF, BMP3, LFT3, LIPA4, TROPN #### [facility] [address] [place] [address] Sodium [Moles/Vol] 140 mmol/L Normal 135-145 [facility] Comment on above: Performed By: #### H EMDF, BMP3, LFT3, LIPA4, TROPN #### [address] [place] [address] Chloride [Moles/Vol] 105 mmol/L Normal 98-107 [facility] Comment on above: Performed By: #### H EMDF, BMP3, LFT3, LIPA4, TROPN #### [address] [place] [address] Basic Metabolic PanelOrdered By: Sharmila Lr on 02-16-2019 Anion gap [Moles/Vol] 11 mmol/L [facility] Work Phone: Calcium [Mass/Vol] 9.4 mg/dL 8.4 - 10. 4 mg/dL [facility] Work Phone: Chloride [Moles/Vol] 105 mmol/L 98 - 10 7 mmol/L [facility] Work Phone: CO2 [Moles/Vol] 25 mmol/L 22 - 30 mmol/L [facility] Work Phone: Creatinine [Mass/Vol] 0.74 mg/dL 0.52 - 1.25 mg/dL [facility] Work Phone: EGFR IF NonAfrican Moroccan >60.0 >60 mL/min [facility] Work Phone: Comment on above: Source- MDRD equatio n with creatinine calibration to IDMS(NKDEP) eGFR not recommended for drug dose adjustment GFR/1.73 sq M.predicted among blacks MDRD (S/P/Bld) [Vol rate/Area] mL/min/{1.73_m2} >60 mL/min [facility] Work Phone: Glucose [Mass/Vol] 182 mg/dL High 70 - 100 mg/dL [facility] Work Phone: Potassium [Moles/Vol] 4.2 mmol/L 3.5 - 5.1 mmol/L [facility] Work Phone: Sodium [Moles/Vol] 140 mmol/L 135 - 145 mmol/L [facility] Work Phone: Urea nitrogen [Mass/Vol] 13 mg/dL 7 - 20 mg/dL [facility] Work Phone: CBC Auto DifferentialOrdered By: Sharmila Lr on 02-16-2019 Erythrocyte distribution width (RBC) [Ratio] 12.3 % 11.5 - 14.5 % [facility] Work Phone: Hematocrit (Bld) [Volume fraction] 37.3 % 35 - 47 % [facility] Work Phone: Hemoglobin (Bld) [Mass/Vol] 12.6 g/dL 11.7 - 16 g/dL [facility] Work Phone: Interpretation and review of laboratory results Abnormal [facility] Work Phone: MCH (RBC) [Entitic mass] 32.8 pg 26 - 34 pg [facility] Work Phone: MCHC 33.8 % 32 - 36 % [facility] Work Phone: MCV (RBC) [Entitic vol] 97.2 fL 79 - 98 fL [facility] Work Phone: Platelet mean volume (Bld) [Entitic vol] 10.1 fL 7.4 - 10.4 fL [facility] Work Phone: Platelets (Bld) [#/Vol] 210 10*3/uL 140 - 440 10*3/uL [facility] Work Phone: RBC (Bld) [#/Vol] 3.84 10*6/uL 3.8 - 5.2 10*6/uL [facility] Work Phone: WBC (Bld) [#/Vol] 22.3 10*3/uL High 3.6 - 10.7 10*3/uL [facility] Work Phone: Test Performed by [facility], [address] [place] [address] [facility] Work Phone: Hemogram w/ [employer]od[employer] 02-16 Erythrocyte distribution width (RBC) [Ratio] 12.3 % Normal 11.5-14.5 [facility] Comment on above: Performed By: #### H EMDF, BMP3, LFT3, LIPA4, TROPN #### [address] Hematocrit (Bld) [Volume fraction] 37.3 % Normal 35.0-47.0 [facility] Comment on above: Performed By: #### H EMDF, BMP3, LFT3, LIPA4, TROPN #### [address] Hemoglobin (Bld) [Mass/Vol] 12.6 g/dL Normal 11.7-16.0 [facility] Comment on above: Performed By: #### H EMDF, BMP3, LFT3, LIPA4, TROPN #### [address] MCH (RBC) [Entitic mass] 32.8 pg Normal 26.0-34.0 [facility] Comment on above: Performed By: #### H EMDF, BMP3, LFT3, LIPA4, TROPN #### [address] MCHC (RBC) [Mass/Vol] 33.8 % Normal 32.0-36.0 [facility] Comment on above: Performed By: #### H EMDF, BMP3, LFT3, LIPA4, TROPN #### [address] MCV (RBC) [Entitic vol] 97.2 fL Normal 79.0-98.0 [facility] Comment on above: Performed By: #### H EMDF, BMP3, LFT3, LIPA4, TROPN #### [place] [address] [address] [place], [place] Platelet mean volume (Bld) [Entitic vol] 10.1 fL Normal 7.4-10.4 [facility] Comment on above: Performed By: #### H EMDF, BMP3, LFT3, LIPA4, TROPN #### [place] [address] [address] [place], [place] Platelets (Bld) [#/Vol] 210 10*3/uL Normal 140-440 [facility] Comment on above: Performed By: #### H EMDF, BMP3, LFT3, LIPA4, TROPN #### [place] [address] [address] [place], [place] RBC (Bld) [#/Vol] 3.84 10*6/uL Normal 3.80-5.20 [facility] Comment on above: Performed By: #### H EMDF, BMP3, LFT3, LIPA4, TROPN #### [place] [address] [address] [place], [place] WBC (Bld) [#/Vol] 22.3 10*3/uL High 3.6-10.7 [facility] Comment on above: Performed By: #### H EMDF, BMP3, LFT3, LIPA4, TROPN #### [address] [address] [address] [place], [place] Hepatic Functionon 0 ALP [Catalytic activity/Vol] 83 U/L Normal 38-126 [facility] Comment on above: Performed By: #### H EMDF, BMP3, LFT3, LIPA4, TROPN #### [address] [address] [place], [place] ALT [Catalytic activity/Vol] 81 U/L High 13-69 [facility] Comment on above: Performed By: #### H EMDF, BMP3, LFT3, LIPA4, TROPN #### [address] [address] [place], [place] AST [Catalytic activity/Vol] 100 U/L High 15-46 [facility] Comment on above: Performed By: #### H EMDF, BMP3, LFT3, LIPA4, TROPN #### [facility] [address] [place], [place] Bilirubin [Mass/Vol] 0.5 mg/dL Normal 0.2-1.3 [facility] Comment on above: Performed By: #### H EMDF, BMP3, LFT3, LIPA4, TROPN #### [address] [address] [place], [place] Protein [Mass/Vol] 6.7 g/dL Normal 6.3-8.2 [facility] Comment on above: Performed By: #### H EMDF, BMP3, LFT3, LIPA4, TROPN #### [address] [address] [place], [place] Bilirubin.direct [Mass/Vol] 0.0 mg/dL Normal 0.0-0.3 [facility] Comment on above: Performed By: #### H EMDF, BMP3, LFT3, LIPA4, TROPN #### [address] [address] [place], [place] Albumin [Mass/Vol] 3.9 g/dL Normal 3.5-5.0 [facility] Comment on above: Performed By: #### H EMDF, BMP3, LFT3, LIPA4, TROPN #### [address] [address] [place], [place] Hepatic Function PanelOrdere d By: Sharmila Lr on 02-16-2019 Albumin [Mass/Vol] 3.9 g/dL 3.5 - 5 g/dL [facility] Work Phone: ALP [Catalytic activity/Vol] 83 U/L 38 - 126 U/L [facility] Work Phone: ALT [Catalytic activity/Vol] 81 U/L High 13 - 69 U/L [facility] Work Phone: AST [Catalytic activity/Vol] 100 U/L High 15 - 46 U/L [facility] Work Phone: [phone] Bilirubin [Mass/Vol] 0.5 mg/dL 0.2 - 1 .3 mg/dL [facility] Work Phone: Bilirubin.indirect [Mass/Vol] 0.0 mg/dL 0 - 0.3 mg/dL [facility] Work Phone: Protein [Mass/Vol] 6.7 g/dL 6.3 - 8.2 g/dL [facility] Work Phone: Lipaseon 02-16-2019 Lipase [Catalytic activity/Vol] 1101 U/L High 23-300 [facility] Comment on above: Performed By: #### H EMDF, BMP3, LFT3, LIPA4, TROPN #### [address] [address] LipaseOrdered By: Tj Muniz on 02-16-2019 Interpretation and review of laboratory results Abnormal [facility] Work Phone: Lipase [Catalytic activity/Vol] 1101 U/L High 23 - 300 U/L [facility] Work Phone: Test Performed by [facility], [address] [place] [id number] [place] [address] Work Phone: Manual Diffon 02-16-2019 Abs Lymph Cnt 0.9 10*3/uL Low 1.1-4.5 [facility] Comment on above: Performed By: #### H EMDF, BMP3, LFT3, LIPA4, TROPN #### [address] [address] Abs Monocyte Cnt 0.9 10*3/uL Normal 0.2-1.1 [facility] Comment on above: Performed By: #### H EMDF, BMP3, LFT3, LIPA4, TROPN #### [address] [address] Abs Neutrophile Cnt 20.5 10*3/uL High 2.2-8.2 [facility] Comment on above: Performed By: #### H EMDF, BMP3, LFT3, LIPA4, TROPN #### [address] Bands 15 % High 0-3 [facility] Comment on above: Performed By: #### H EMDF, BMP3, LFT3, LIPA4, TROPN #### [address] Lymphocytes 4 % Low 20-40 [facility] Comment on above: Performed By: #### H EMDF, BMP3, LFT3, LIPA4, TROPN #### [address] [address] [place], [place] Monocytes 4 % Normal 2-10 [facility] Comment on above: Performed By: #### H EMDF, BMP3, LFT3, LIPA4, TROPN #### [address] RBC morphology finding Nom (Bld) Normal Normal [facility] Comment on above: Performed By: #### H EMDF, BMP3, LFT3, LIPA4, TROPN #### [address] Seg Neutrophils 77 % Normal 40-80 [facility] Comment on above: Performed By: #### H EMDF, BMP3, LFT3, LIPA4, TROPN #### [address] Abs Baso Cnt 0.0 10*3/uL Normal 0.0-0.2 [facility] Comment on above: Performed By: #### H EMDF, BMP3, LFT3, LIPA4, TROPN #### [address] Abs Eosin Cnt 0.0 10*3/uL Normal 0.0-0.5 [facility] Comment on above: Performed By: #### H EMDF, BMP3, LFT3, LIPA4, TROPN #### [address] Basophils 0 % Normal 0-2 [facility] Comment on above: Performed By: #### H EMDF, BMP3, LFT3, LIPA4, TROPN #### [address] [address] Cells counted 100 Normal [facility] Comment on above: Performed By: #### H EMDF, BMP3, LFT3, LIPA4, TROPN #### [facility] [address] [place] [address] Eosinophils 0 % Low 1-6 [facility] Comment on above: Performed By: #### H EMDF, BMP3, LFT3, LIPA4, TROPN #### [facility] [address] [place] [address] Manual DifferentialOrdered B y: Lisa Smiley on 02-16-2019 Absolute Baso # 0.0 10*3/uL 0 - 0.2 10*3/uL [facility] Work Phone: [phone] Absolute Eos # 0.0 10*3/uL 0 - 0.5 10*3/uL [facility] Work Phone: [phone] Absolute Lymph # 0.9 10*3/uL Low 1.1 - 4.5 10*3/uL [facility] Work Phone: [phone] Absolute Lynn # 0.9 10*3/uL 0.2 - 1.1 10*3/uL [facility] Work Phone: [phone] Absolute Neut # 20.5 10*3/uL High 2.2 - 8.2 10*3/uL [facility] Work Phone: [phone] Bands 15 % High 0 - 3 % [facility] Work Phone: [phone] Basophils 0 % 0 - 2 % [facility] Work Phone: [phone] Eosinophils 0 % Low 1 - 6 % [facility] Work Phone: [phone] Interpretation and review of laboratory results Abnormal [facility] Work Phone: [phone] Lymphocytes 4 % Low 20 - 40 % [facility] Work Phone: [phone] Monocytes 4 % 2 - 10 % [facility] Work Phone: [phone] RBC Morphology Normal [facility] Work Phone: [phone] Seg Neutrophils 77 % 40 - 80 % [facility] Work Phone: [phone] TOTAL CELLS COUNTED 100 [facility] Work Phone: [phone] Test Performed by [facility], [address] [place] [address] [address] [facility] Work Phone: No Panel InformationOrdered By: Sharmila Lr on 02-16-2019 Interpretation and review of laboratory results Abnormal [facility] Work Phone: Test Performed by [facility], [address] [place] [address] [facility] Work Phone: Basic Metabolic Panelon Calcium [Mass/Vol] 9.6 mg/dL Normal 8.4-10.4 [facility] Comment on above: Performed By: #### H EMDF, BMP3, LFT3, LIPA4, TROPN #### [address] Glucose [Mass/Vol] 110 mg/dL High 70-100 [facility] Comment on above: Performed By: #### H EMDF, BMP3, LFT3, LIPA4, TROPN #### [address] Urea nitrogen [Mass/Vol] 10 mg/dL Normal 7-20 [facility] Comment on above: Performed By: #### H EMDF, BMP3, LFT3, LIPA4, TROPN #### [address] Anion gap [Moles/Vol] 8 Normal [facility] Comment on above: Performed By: #### H EMDF, BMP3, LFT3, LIPA4, TROPN #### [facility] [employer] [address] [address] [place], [place] CO2 [Moles/Vol] 28 mmol/L Normal 22-30 [facility] Comment on above: Performed By: #### H EMDF, BMP3, LFT3, LIPA4, TROPN #### [address] Creatinine [Mass/Vol] 0.87 mg/dL Normal 0.52-1.25 [facility] Comment on above: Performed By: #### H EMDF, BMP3, LFT3, LIPA4, TROPN #### [address] [place], [place] GFR/1.73 sq M predicted among blacks MDRD (S/P/Bld) [Vol rate/Area] mL/min/{1.73_m2} Normal >60 [facility] Comment on above: Performed By: #### H EMDF, BMP3, LFT3, LIPA4, TROPN #### [address] [address] [place], [place] GFR/1.73 sq M predicted among non-blacks MDRD (S/P/Bld) [Vol rate/Area] mL/min/{1.73_m2} Normal >60 [facility] Comment on above: Result Comment: Sour ce- MDRD equation with creatinine calibration to IDMS(NKDEP) eGFR not recommended for drug dose adjustment Performed By: #### H EMDF, BMP3, LFT3, LIPA4, TROPN #### [address] Chloride [Moles/Vol] 104 mmol/L Normal 98-107 [facility] Comment on above: Performed By: #### H EMDF, BMP3, LFT3, LIPA4, TROPN #### [address] Potassium [Moles/Vol] 4.0 mmol/L Normal 3.5-5.1 [facility] Comment on above: Performed By: #### H EMDF, BMP3, LFT3, LIPA4, TROPN #### [address] Sodium [Moles/Vol] 141 mmol/L Normal 135-145 [facility] Comment on above: Performed By: #### H EMDF, BMP3, LFT3, LIPA4, TROPN #### [address] Basic Metabolic PanelOrdered By: Mark Chen on 02-15-2019 Anion gap [Moles/Vol] 8 mmol/L [facility] Work Phone: Calcium [Mass/Vol] 9.6 mg/dL 8.4 - 10. 4 mg/dL [facility] Work Phone: [phone] Chloride [Moles/Vol] 104 mmol/L 98 - 10 7 mmol/L [facility] Work Phone: [phone] CO2 [Moles/Vol] 28 mmol/L 22 - 30 mmol/L [facility] Work Phone: [phone] Creatinine [Mass/Vol] 0.87 mg/dL 0.52 - 1.25 mg/dL [facility] Work Phone: [phone] EGFR IF NonAfrican Moroccan >60.0 >60 mL/min [facility] Work Phone: [phone] Comment on above: Source- MDRD equatio n with creatinine calibration to IDMS(NKDEP) eGFR not recommended for drug dose adjustment GFR/1.73 sq M.predicted among blacks MDRD (S/P/Bld) [Vol rate/Area] mL/min/{1.73_m2} >60 mL/min [facility] Work Phone: [phone] Glucose [Mass/Vol] 110 mg/dL High 70 - 100 mg/dL [facility] Work Phone: [phone] Potassium [Moles/Vol] 4.0 mmol/L 3.5 - 5.1 mmol/L [facility] Work Phone: [phone] Sodium [Moles/Vol] 141 mmol/L 135 - 145 mmol/L [facility] Work Phone: [phone] Urea nitrogen [Mass/Vol] 10 mg/dL 7 - 20 mg/dL [facility] Work Phone: [phone] CBC Auto DifferentialOrdered By: Mark Chen on 02-15-2019 Absolute Baso # 0.1 10*3/uL 0 - 0.2 10*3/uL [facility] Work Phone: [phone] Absolute Neut # 5.0 10*3/uL 1.8 - 7 10*3/uL [facility] Work Phone: [phone] Basophils/100 WBC (Bld) 0.9 % 0 - 2 % [facility] Work Phone: [phone] Eosinophils (Bld) [#/Vol] 0.2 10*3/uL 0 - 0.5 10*3/uL [facility] Work Phone: [phone] Eosinophils/100 WBC (Bld) 3.0 % 1 - 6 % [facility] Work Phone: [phone] Erythrocyte distribution width (RBC) [Ratio] 12.1 % 11.5 - 14.5 % [facility] Work Phone: [phone] Granulocytes/100 WBC (Bld) 67.7 % 40 - 80 % [facility] Work Phone: [phone] Hematocrit (Bld) [Volume fraction] 36.6 % 35 - 47 % [facility] Work Phone: [phone] Hemoglobin (Bld) [Mass/Vol] 12.8 g/dL 11.7 - 16 g/dL [facility] Work Phone: [phone] Lymphocytes (Bld) [#/Vol] 1.6 10*3/uL 1 - 4.3 10*3/uL [facility] Work Phone: [phone] Lymphocytes/100 WBC (Bld) 21.4 % 20 - 40 % [facility] Work Phone: [phone] MCH (RBC) [Entitic mass] 32.9 pg 26 - 34 pg [facility] Work Phone: [phone] MCHC 34.8 % 32 - 36 % [facility] Work Phone: [phone] MCV (RBC) [Entitic vol] 94.4 fL 79 - 98 fL [facility] Work Phone: [phone] Monocytes (Bld) [#/Vol] 0.5 10*3/uL 0 - 0.8 10*3/uL [facility] Work Phone: [phone] Monocytes/100 WBC (Bld) 7.0 % 2 - 10 % [facility] Work Phone: [phone] Platelet mean volume (Bld) [Entitic vol] 10.3 fL 7.4 - 10.4 fL [facility] Work Phone: [phone] Platelets (Bld) [#/Vol] 223 10*3/uL 140 - 440 10*3/uL [facility] Work Phone: [phone] RBC (Bld) [#/Vol] 3.88 10*6/uL 3.8 - 5.2 10*6/uL [facility] Work Phone: [phone] WBC (Bld) [#/Vol] 7.4 10*3/uL 3.6 - 10.7 10*3/uL [facility] Work Phone: Test Performed by [address] [address] [facility] Work Phone: FL ERCP BILIARY AND PANCREAT IC S&IOrdered By: Lisa Smiley on 02-15-2019 Patient Name: PREMA VILLALPANDO ---Fluoroscopy--- Exam Date/Time 02/15/2019 08:51:55 EST Exam RF ERCP Biliary and Pancreatic Duct Ordering Physician LISA RICH Accession Number [id number] CTP4 Codes 38169 () Reason For Exam cbd stones Report [...] [facility] Results From [facility] - 02/15/2019 8:52 AM EST Patient Name: PREMA VILLALPANDO ---Fluoroscopy--- Exam Date/Time 02/15/2019 08:51:55 EST Exam RF ERCP Biliary and Pancreatic Duct Ordering Physician LISA RICH Accession Number [id number] CTP4 Codes 84253 () Reason For Exam cbd stones Report [...] JEFFREY Transcribed Date and Time: 02/15/2019 8:[address] [facility] Work Phone: Hemogram w/ Autodiffon 02-15 Abs Baso Cnt 0.1 10*3/uL Normal 0.0-0.2 [facility] Comment on above: Performed By: #### H EMDF, BMP3, LFT3, LIPA4, TROPN #### [facility] [employer] [facility] [address] [place] [address] Abs Neutrophile Cnt 5.0 10*3/uL Normal 1.8-7.0 [facility] [employer] [facility] Comment on above: Performed By: #### H EMDF, BMP3, LFT3, LIPA4, TROPN #### [facility] [employer] [facility] [address] [place] [address] Basophils/100 WBC (Bld) 0.9 % Normal 0.0-2.0 [facility] Comment on above: Performed By: #### H EMDF, BMP3, LFT3, LIPA4, TROPN #### [facility] [employer] [facility] [address] [place] [address] Eosinophils (Bld) [#/Vol] 0.2 10*3/uL Normal 0.0-0.5 [facility] Comment on above: Performed By: #### H EMDF, BMP3, LFT3, LIPA4, TROPN #### [address] Eosinophils/100 WBC (Bld) 3.0 % Normal 1.0-6.0 [facility] Comment on above: Performed By: #### H EMDF, BMP3, LFT3, LIPA4, TROPN #### [address] Erythrocyte distribution width (RBC) [Ratio] 12.1 % Normal 11.5-14.5 [facility] Comment on above: Performed By: #### H EMDF, BMP3, LFT3, LIPA4, TROPN #### [address] Granulocytes/100 WBC (Bld) 67.7 % Normal 40.0-80.0 [facility] Comment on above: Performed By: #### H EMDF, BMP3, LFT3, LIPA4, TROPN #### [address] Hematocrit (Bld) [Volume fraction] 36.6 % Normal 35.0-47.0 [facility] Comment on above: Performed By: #### H EMDF, BMP3, LFT3, LIPA4, TROPN #### [address] Hemoglobin (Bld) [Mass/Vol] 12.8 g/dL Normal 11.7-16.0 [facility] Comment on above: Performed By: #### H EMDF, BMP3, LFT3, LIPA4, TROPN #### [address] Lymphocytes (Bld) [#/Vol] 1.6 10*3/uL Normal 1.0-4.3 [facility] Comment on above: Performed By: #### H EMDF, BMP3, LFT3, LIPA4, TROPN #### [address] Lymphocytes/100 WBC (Bld) 21.4 % Normal 20.0-40.0 [facility] Comment on above: Performed By: #### H EMDF, BMP3, LFT3, LIPA4, TROPN #### [address] MCH (RBC) [Entitic mass] 32.9 pg Normal 26.0-34.0 [facility] Comment on above: Performed By: #### H EMDF, BMP3, LFT3, LIPA4, TROPN #### [address] MCHC (RBC) [Mass/Vol] 34.8 % Normal 32.0-36.0 [facility] Comment on above: Performed By: #### H EMDF, BMP3, LFT3, LIPA4, TROPN #### [address] MCV (RBC) [Entitic vol] 94.4 fL Normal 79.0-98.0 [facility] Comment on above: Performed By: #### H EMDF, BMP3, LFT3, LIPA4, TROPN #### [address] Monocytes (Bld) [#/Vol] 0.5 10*3/uL Normal 0.0-0.8 [facility] Comment on above: Performed By: #### H EMDF, BMP3, LFT3, LIPA4, TROPN #### [address] Monocytes/100 WBC (Bld) 7.0 % Normal 2.0-10.0 [facility] Comment on above: Performed By: #### H EMDF, BMP3, LFT3, LIPA4, TROPN #### [address] Platelet mean volume (Bld) [Entitic vol] 10.3 fL Normal 7.4-10.4 [facility] Comment on above: Performed By: #### H EMDF, BMP3, LFT3, LIPA4, TROPN #### [address] [place] Platelets (Bld) [#/Vol] 223 10*3/uL Normal 140-440 [facility] Comment on above: Performed By: #### H EMDF, BMP3, LFT3, LIPA4, TROPN #### [address] RBC (Bld) [#/Vol] 3.88 10*6/uL Normal 3.80-5.20 [facility] Comment on above: Performed By: #### H EMDF, BMP3, LFT3, LIPA4, TROPN #### [address] [address] [place], [place] WBC (Bld) [#/Vol] 7.4 10*3/uL Normal 3.6-10.7 [facility] Comment on above: Performed By: #### H EMDF, BMP3, LFT3, LIPA4, TROPN #### [address] [address] [place], [place] Hepatic Functionon 0 ALP [Catalytic activity/Vol] 94 U/L Normal 38-126 [facility] Comment on above: Performed By: #### H EMDF, BMP3, LFT3, LIPA4, TROPN #### [address] [address] [place], [place] ALT [Catalytic activity/Vol] 76 U/L High 13-69 [facility] Comment on above: Performed By: #### H EMDF, BMP3, LFT3, LIPA4, TROPN #### [address] [address] [address] [place], [place] AST [Catalytic activity/Vol] 80 U/L High 15-46 [facility] Comment on above: Performed By: #### H EMDF, BMP3, LFT3, LIPA4, TROPN #### [address] Bilirubin [Mass/Vol] 0.6 mg/dL Normal 0.2-1.3 [facility] Comment on above: Performed By: #### H EMDF, BMP3, LFT3, LIPA4, TROPN #### [facility] [address] [place], [place] Protein [Mass/Vol] 7.0 g/dL Normal 6.3-8.2 [facility] Comment on above: Performed By: #### H EMDF, BMP3, LFT3, LIPA4, TROPN #### [facility] [address] [place], [place] Bilirubin.direct [Mass/Vol] 0.0 mg/dL Normal 0.0-0.3 [facility] Comment on above: Performed By: #### H EMDF, BMP3, LFT3, LIPA4, TROPN #### [facility] [address] [place], [place] Albumin [Mass/Vol] 3.7 g/dL Normal 3.5-5.0 [facility] Comment on above: Performed By: #### H EMDF, BMP3, LFT3, LIPA4, TROPN #### [facility] [address] [place], [place] Hepatic Function PanelOrdere d By: Sharmila Lr on 02-15-2019 Albumin [Mass/Vol] 3.7 g/dL 3.5 - 5 g/dL [facility] Work Phone: ALP [Catalytic activity/Vol] 94 U/L 38 - 126 U/L [facility] Work Phone: ALT [Catalytic activity/Vol] 76 U/L High 13 - 69 U/L [facility] Work Phone: [phone] AST [Catalytic activity/Vol] 80 U/L High 15 - 46 U/L [facility] Work Phone: Bilirubin [Mass/Vol] 0.6 mg/dL 0.2 - 1 .3 mg/dL [facility] Work Phone: Bilirubin.indirect [Mass/Vol] 0.0 mg/dL 0 - 0.3 mg/dL [facility] Work Phone: Protein [Mass/Vol] 7.0 g/dL 6.3 - 8.2 g/dL [facility] Work Phone: No Panel InformationOrdered By: Mark Chen on 02-15-2019 Interpretation and review of laboratory results Abnormal [facility] Work Phone: Test Performed by [facility], [address] [place] [address] [address] [facility] Work Phone: RF ERCP Biliary and Pancreat ic Ducton 02-15-2019 RF ERCP Biliary and Pancreatic Duct Patient Name: PREMA VILLALPANDO Fluoroscopy Exam Date/Time 02/15/2019 08:51:55 EST Exam RF ERCP Biliary and Pancreatic Duct Ordering Physician LISA RICH Accession Number [id number] CTP4 Codes 49820 () Reason For Exam cbd stones Report [...] Transcribed Date and Time: 02/15/2019 8:39 Normal [facility] Surgical Pathologyon 020 Surgical Pathology [id number] [facility] PATHOLOGY AND LABORATORY MEDICINE [address] [place] [address] FINAL SURGICAL PATHOLOGY REPORT NAME: PREMA VILLALPANDO : 1940 78 Y F BILLING NO.: [id number] LOCATION: [id number] PROCEDURE 02/15/2019 DATE: SURGEON: SAHIL [...] are identified impacted within the cystic duct. Roll Examiner sections are submitted in a single cassette. (bits ss, 1) JCK/TRELL Disclaimer: The following statement applies to all immunohistochemistry, in situ hybridization, molecular studies, and immunofluorescence testing. The use of one or more reagents in the above tests is regulated as an analyte specific reagent (ASR). These tests were developed and their performance characteristics determined by the clinical laboratories of [facility]. They have not been cleared by the [...] negativity on decalcified specimens. Professional Performing Location: [address] [address]. DEPARTMENT OF PATHOLOGY AND LABORATORY MEDICINE [place], [place] Normal [facility] TS GELon 02-15-2019 TS GEL ABO Group: O Rh, Gel: POS Antibody Screen Gel: NEG Normal [facility] Comment on above: Performed By: #### H EMDF, BMP3, LFT3, LIPA4, TROPN #### [address] TYPE AND SCREENOrdered By: Tyrone Chen on 02-15-2019 ABO Grouping O [facility] Work Phone: Rh Type Positive [facility] Work Phone: Comment on above: Test Performed by [address] [address] Test Performed by [facility], [address] [place] [id number] [place] [address] Work Phone: Potassiumon 02-14-2019 Potassium [Moles/Vol] 3.8 mmol/L Normal 3.5-5.1 [facility] Comment on above: Performed By: #### H EMDF, BMP3, LFT3, LIPA4, TROPN #### [address] PotassiumOrdered By: Luciano Muniz on 02-14-2019 Potassium [Moles/Vol] 3.8 mmol/L 3.5 - 5.1 mmol/L [facility] Work Phone: Test Performed by [facility], [address] [place] [address] [facility] Work Phone: Basic Metabolic Panelon 01-0 Anion gap [Moles/Vol] 7 Normal [facility] Comment on above: Performed By: #### H EMDF, BMP3, LFT3, LIPA4, TROPN #### [address] [address] [place] [address] Calcium [Mass/Vol] 9.0 mg/dL Normal 8.4-10.4 [facility] Comment on above: Performed By: #### H EMDF, BMP3, LFT3, LIPA4, TROPN #### [address] [address] CO2 [Moles/Vol] 26 mmol/L Normal 22-30 [facility] Comment on above: Performed By: #### H EMDF, BMP3, LFT3, LIPA4, TROPN #### [address] Glucose [Mass/Vol] 93 mg/dL Normal 70-100 [facility] Comment on above: Performed By: #### H EMDF, BMP3, LFT3, LIPA4, TROPN #### [address] [address] Urea nitrogen [Mass/Vol] 6 mg/dL Low 7-20 [facility] Comment on above: Performed By: #### H EMDF, BMP3, LFT3, LIPA4, TROPN #### [address] Creatinine [Mass/Vol] 0.68 mg/dL Normal 0.52-1.25 [facility] Comment on above: Performed By: #### H EMDF, BMP3, LFT3, LIPA4, TROPN #### [address] [address] GFR/1.73 sq M predicted among blacks MDRD (S/P/Bld) [Vol rate/Area] mL/min/{1.73_m2} Normal >60 [facility] Comment on above: Performed By: #### H EMDF, BMP3, LFT3, LIPA4, TROPN #### [address] GFR/1.73 sq M predicted among non-blacks MDRD (S/P/Bld) [Vol rate/Area] mL/min/{1.73_m2} Normal >60 [facility] Comment on above: Result Comment: Sour ce- MDRD equation with creatinine calibration to IDMS(NKDEP) eGFR not recommended for drug dose adjustment Performed By: #### H EMDF, BMP3, LFT3, LIPA4, TROPN #### [address] Chloride [Moles/Vol] 108 mmol/L High 98-107 [facility] Comment on above: Performed By: #### H EMDF, BMP3, LFT3, LIPA4, TROPN #### [address] Potassium [Moles/Vol] 3.4 mmol/L Low 3.5-5.1 [facility] Comment on above: Performed By: #### H EMDF, BMP3, LFT3, LIPA4, TROPN #### [address] Sodium [Moles/Vol] 142 mmol/L Normal 135-145 [facility] Comment on above: Performed By: #### H EMDF, BMP3, LFT3, LIPA4, TROPN #### [address] Basic Metabolic Panel w/ Ref tere to MGOrdered By: Gem Lowery on 02-13-2019 Anion gap [Moles/Vol] 7 mmol/L [facility] Work Phone: Calcium [Mass/Vol] 9.0 mg/dL 8.4 - 10. 4 mg/dL [facility] Work Phone: Chloride [Moles/Vol] 108 mmol/L High 98 - 10 7 mmol/L [facility] Work Phone: CO2 [Moles/Vol] 26 mmol/L 22 - 30 mmol/L [facility] Work Phone: [phone] Creatinine [Mass/Vol] 0.68 mg/dL 0.52 - 1.25 mg/dL [facility] Work Phone: [phone] EGFR IF NonAfrican Moroccan >60.0 >60 mL/min [facility] Work Phone: [phone] Comment on above: Source- MDRD equatio n with creatinine calibration to IDMS(NKDEP) eGFR not recommended for drug dose adjustment GFR/1.73 sq M.predicted among blacks MDRD (S/P/Bld) [Vol rate/Area] mL/min/{1.73_m2} >60 mL/min [facility] Work Phone: [phone] Glucose [Mass/Vol] 93 mg/dL 70 - 100 mg/dL [facility] Work Phone: [phone] Potassium [Moles/Vol] 3.4 mmol/L Low 3.5 - 5.1 mmol/L [facility] Work Phone: [phone] Sodium [Moles/Vol] 142 mmol/L 135 - 145 mmol/L [facility] Work Phone: [phone] Urea nitrogen [Mass/Vol] 6 mg/dL Low 7 - 20 mg/dL [facility] Work Phone: [phone] CBC Auto DifferentialOrdered By: Gem Lowery on 02-13-2019 Absolute Baso # 0.1 10*3/uL 0 - 0.2 10*3/uL [facility] Work Phone: [phone] Absolute Neut # 3.9 10*3/uL 1.8 - 7 10*3/uL [facility] Work Phone: [phone] Basophils/100 WBC (Bld) 1.1 % 0 - 2 % [facility] Work Phone: [phone] Eosinophils (Bld) [#/Vol] 0.2 10*3/uL 0 - 0.5 10*3/uL [facility] Work Phone: [phone] Eosinophils/100 WBC (Bld) 3.4 % 1 - 6 % [facility] Work Phone: [phone] Erythrocyte distribution width (RBC) [Ratio] 12.3 % 11.5 - 14.5 % [facility] Work Phone: [phone] Granulocytes/100 WBC (Bld) 68.3 % 40 - 80 % [facility] Work Phone: [phone] Hematocrit (Bld) [Volume fraction] 32.8 % Low 35 - 47 % [facility] Work Phone: [phone] Hemoglobin (Bld) [Mass/Vol] 11.6 g/dL Low 11.7 - 16 g/dL [facility] Work Phone: [phone] Interpretation and review of laboratory results Abnormal [facility] Work Phone: [phone] Lymphocytes (Bld) [#/Vol] 1.1 10*3/uL 1 - 4.3 10*3/uL [facility] Work Phone: [phone] Lymphocytes/100 WBC (Bld) 18.6 % Low 20 - 40 % [facility] Work Phone: [phone] 222 MCH (RBC) [Entitic mass] 33.3 pg 26 - 34 pg [facility] Work Phone: [phone] MCHC 35.2 % 32 - 36 % [facility] Work Phone: [phone] MCV (RBC) [Entitic vol] 94.4 fL 79 - 98 fL [facility] Work Phone: [phone] Monocytes (Bld) [#/Vol] 0.5 10*3/uL 0 - 0.8 10*3/uL [facility] Work Phone: 1() 222 Monocytes/100 WBC (Bld) 8.6 % 2 - 10 % [facility] Work Phone: [phone] 222 Platelet mean volume (Bld) [Entitic vol] 10.1 fL 7.4 - 10.4 fL [facility] Work Phone: [phone] Platelets (Bld) [#/Vol] 196 10*3/uL 140 - 440 10*3/uL [facility] Work Phone: [phone] RBC (Bld) [#/Vol] 3.48 10*6/uL Low 3.8 - 5.2 10*6/uL [facility] Work Phone: [phone] WBC (Bld) [#/Vol] 5.7 10*3/uL 3.6 - 10.7 10*3/uL [facility] Work Phone: Test Performed by [facility], [address] [place] [id number] [place] [address] Work Phone: Hemogram w/ Autodiffon 02-13 Abs Baso Cnt 0.1 10*3/uL Normal 0.0-0.2 [facility] Comment on above: Performed By: #### H EMDF, BMP3, LFT3, LIPA4, TROPN #### [address] [address] Abs Neutrophile Cnt 3.9 10*3/uL Normal 1.8-7.0 [facility] Comment on above: Performed By: #### H EMDF, BMP3, LFT3, LIPA4, TROPN #### [address] [address] Basophils/100 WBC (Bld) 1.1 % Normal 0.0-2.0 [facility] Comment on above: Performed By: #### H EMDF, BMP3, LFT3, LIPA4, TROPN #### [address] [address] Eosinophils (Bld) [#/Vol] 0.2 10*3/uL Normal 0.0-0.5 [facility] Comment on above: Performed By: #### H EMDF, BMP3, LFT3, LIPA4, TROPN #### [address] [address] Eosinophils/100 WBC (Bld) 3.4 % Normal 1.0-6.0 [facility] Comment on above: Performed By: #### H EMDF, BMP3, LFT3, LIPA4, TROPN #### [address] [address] Erythrocyte distribution width (RBC) [Ratio] 12.3 % Normal 11.5-14.5 [facility] Comment on above: Performed By: #### H EMDF, BMP3, LFT3, LIPA4, TROPN #### [address] Granulocytes/100 WBC (Bld) 68.3 % Normal 40.0-80.0 [facility] Comment on above: Performed By: #### H EMDF, BMP3, LFT3, LIPA4, TROPN #### [address] Hematocrit (Bld) [Volume fraction] 32.8 % Low 35.0-47.0 [facility] Comment on above: Performed By: #### H EMDF, BMP3, LFT3, LIPA4, TROPN #### [address] Hemoglobin (Bld) [Mass/Vol] 11.6 g/dL Low 11.7-16.0 [facility] Comment on above: Performed By: #### H EMDF, BMP3, LFT3, LIPA4, TROPN #### [address] Lymphocytes (Bld) [#/Vol] 1.1 10*3/uL Normal 1.0-4.3 [facility] Comment on above: Performed By: #### H EMDF, BMP3, LFT3, LIPA4, TROPN #### [address] Lymphocytes/100 WBC (Bld) 18.6 % Low 20.0-40.0 [facility] Comment on above: Performed By: #### H EMDF, BMP3, LFT3, LIPA4, TROPN #### [address] MCH (RBC) [Entitic mass] 33.3 pg Normal 26.0-34.0 [facility] Comment on above: Performed By: #### H EMDF, BMP3, LFT3, LIPA4, TROPN #### [address] MCHC (RBC) [Mass/Vol] 35.2 % Normal 32.0-36.0 [facility] Comment on above: Performed By: #### H EMDF, BMP3, LFT3, LIPA4, TROPN #### [address] [address] [address] [place], [place] MCV (RBC) [Entitic vol] 94.4 fL Normal 79.0-98.0 [facility] Comment on above: Performed By: #### H EMDF, BMP3, LFT3, LIPA4, TROPN #### [address] [address] [address] [place], [place] Monocytes (Bld) [#/Vol] 0.5 10*3/uL Normal 0.0-0.8 [facility] Comment on above: Performed By: #### H EMDF, BMP3, LFT3, LIPA4, TROPN #### [address] [address] [place], [place] Monocytes/100 WBC (Bld) 8.6 % Normal 2.0-10.0 [facility] Comment on above: Performed By: #### H EMDF, BMP3, LFT3, LIPA4, TROPN #### [address] [address] [place], [place] Platelet mean volume (Bld) [Entitic vol] 10.1 fL Normal 7.4-10.4 [facility] Comment on above: Performed By: #### H EMDF, BMP3, LFT3, LIPA4, TROPN #### [address] [address] [place], [place] Platelets (Bld) [#/Vol] 196 10*3/uL Normal 140-440 [facility] Comment on above: Performed By: #### H EMDF, BMP3, LFT3, LIPA4, TROPN #### [address] [address] [place] [place], [place] RBC (Bld) [#/Vol] 3.48 10*6/uL Low 3.80-5.20 [facility] Comment on above: Performed By: #### H EMDF, BMP3, LFT3, LIPA4, TROPN #### [address] [address] [place], [place] WBC (Bld) [#/Vol] 5.7 10*3/uL Normal 3.6-10.7 [facility] Comment on above: Performed By: #### H EMDF, BMP3, LFT3, LIPA4, TROPN #### [address] [address] [place] [place], [place] Hepatic Functionon 0 ALP [Catalytic activity/Vol] 77 U/L Normal 38-126 [facility] Comment on above: Performed By: #### H EMDF, BMP3, LFT3, LIPA4, TROPN #### [address] [address] [place] [place], [place] ALT [Catalytic activity/Vol] 66 U/L Normal 13-69 [facility] Comment on above: Performed By: #### H EMDF, BMP3, LFT3, LIPA4, TROPN #### [address] [address] [place], [place] AST [Catalytic activity/Vol] 62 U/L High 15-46 [facility] Comment on above: Performed By: #### H EMDF, BMP3, LFT3, LIPA4, TROPN #### [address] [address] [place] [place], [place] Bilirubin [Mass/Vol] 0.7 mg/dL Normal 0.2-1.3 [facility] Comment on above: Performed By: #### H EMDF, BMP3, LFT3, LIPA4, TROPN #### [address] [address] [address] [place], [place] Protein [Mass/Vol] 5.8 g/dL Low 6.3-8.2 [facility] Comment on above: Performed By: #### H EMDF, BMP3, LFT3, LIPA4, TROPN #### [address] [address] [place], [place] Bilirubin.direct [Mass/Vol] 0.0 mg/dL Normal 0.0-0.3 [facility] Comment on above: Performed By: #### H EMDF, BMP3, LFT3, LIPA4, TROPN #### [address] [address] [place], [place] Albumin [Mass/Vol] 3.0 g/dL Low 3.5-5.0 [facility] Comment on above: Performed By: #### H EMDF, BMP3, LFT3, LIPA4, TROPN #### [address] [address] Hepatic Function PanelOrdere d By: Gem Lowery on 02-13-2019 Albumin [Mass/Vol] 3.0 g/dL Low 3.5 - 5 g/dL [facility] Work Phone: ALP [Catalytic activity/Vol] 77 U/L 38 - 126 U/L [facility] Work Phone: [phone] ALT [Catalytic activity/Vol] 66 U/L 13 - 69 U/L [facility] Work Phone: [phone] AST [Catalytic activity/Vol] 62 U/L High 15 - 46 U/L [facility] Work Phone: Bilirubin [Mass/Vol] 0.7 mg/dL 0.2 - 1 .3 mg/dL [facility] Work Phone: [phone] Bilirubin.indirect [Mass/Vol] 0.0 mg/dL 0 - 0.3 mg/dL [facility] Work Phone: Protein [Mass/Vol] 5.8 g/dL Low 6.3 - 8.2 g/dL [facility] Work Phone: Magnesiumon 02-13-2019 Magnesium [Mass/Vol] 1.7 mg/dL Normal 1.6-2.3 [facility] Comment on above: Performed By: #### H EMDF, BMP3, LFT3, LIPA4, TROPN #### [address] [address] MagnesiumOrdered By: Maria C Lowery on 02-13-2019 Magnesium [Mass/Vol] 1.7 mg/dL 1.6 - 2 .3 mg/dL [facility] Work Phone: Test Performed by [facility], [address] [place] [address] [address] [facility] Work Phone: No Panel InformationOrdered By: Gem Lowery on 02-13-2019 Interpretation and review of laboratory results Abnormal [facility] Work Phone: [phone] Test Performed by [facility], [address] [place] [address] [facility] Work Phone: [phone] Add On Lab TestOrdered By: Juana Lowery on 02-12-2019 Add On Accepted [facility] Work Phone: [phone] Comment on above: Specimen available & acceptable for analysis. Test Performed by [facility], [address] [place] [address] [facility] Work Phone: [phone] Add on test from HISon 02-12 Add on test from HIS Accepted Normal [facility] Comment on above: Result Comment: Spec imen available & acceptable for analysis. Performed By: #### H EMDF, BMP3, LFT3, LIPA4, TROPN #### [facility] [address] [place] [address] Bilirubin, DirectOrdered By: Sonny Peres on 02-12-2019 Bilirubin.indirect [Mass/Vol] 0.0 mg/dL 0 - 0.3 mg/dL [facility] Work Phone: [phone] Bilirubin,Directon 0 Bilirubin.direct [Mass/Vol] 0.0 mg/dL Normal 0.0-0.3 [facility] Comment on above: Performed By: #### H EMDF, BMP3, LFT3, LIPA4, TROPN #### [facility] [address] [place] [address] CBC auto differentialOrdered By: Sonny Peres on 02-12-2019 Absolute Baso # 0.1 10*3/uL 0 - 0.2 10*3/uL [facility] Work Phone: [phone] Absolute Neut # 4.0 10*3/uL 1.8 - 7 10*3/uL [facility] Work Phone: [phone] Basophils/100 WBC (Bld) 0.9 % 0 - 2 % [facility] Work Phone: ) 222 Eosinophils (Bld) [#/Vol] 0.2 10*3/uL 0 - 0.5 10*3/uL [facility] Work Phone: [phone] Eosinophils/100 WBC (Bld) 3.4 % 1 - 6 % [facility] Work Phone: [phone] Erythrocyte distribution width (RBC) [Ratio] 12.4 % 11.5 - 14.5 % [facility] Work Phone: [phone] 222 Granulocytes/100 WBC (Bld) 71.5 % 40 - 80 % [facility] Work Phone: [phone] Hematocrit (Bld) [Volume fraction] 32.5 % Low 35 - 47 % [facility] Work Phone: () 222 Hemoglobin (Bld) [Mass/Vol] 11.1 g/dL Low 11.7 - 16 g/dL [facility] Work Phone: [phone] Interpretation and review of laboratory results Abnormal [facility] Work Phone: ) 222 Lymphocytes (Bld) [#/Vol] 1.0 10*3/uL 1 - 4.3 10*3/uL [facility] Work Phone: ) 222 Lymphocytes/100 WBC (Bld) 17.7 % Low 20 - 40 % [facility] Work Phone: [phone] 222 MCH (RBC) [Entitic mass] 33.0 pg 26 - 34 pg [facility] Work Phone: () 222 MCHC 34.2 % 32 - 36 % [facility] Work Phone: [phone] MCV (RBC) [Entitic vol] 96.5 fL 79 - 98 fL [facility] Work Phone: [phone] Monocytes (Bld) [#/Vol] 0.4 10*3/uL 0 - 0.8 10*3/uL [facility] Work Phone: [phone] Monocytes/100 WBC (Bld) 6.5 % 2 - 10 % [facility] Work Phone: [phone] Platelet mean volume (Bld) [Entitic vol] 10.3 fL 7.4 - 10.4 fL [facility] Work Phone: [phone] 222 Platelets (Bld) [#/Vol] 163 10*3/uL 140 - 440 10*3/uL [facility] Work Phone: [phone] RBC (Bld) [#/Vol] 3.37 10*6/uL Low 3.8 - 5.2 10*6/uL [facility] Work Phone: WBC (Bld) [#/Vol] 5.5 10*3/uL 3.6 - 10.7 10*3/uL [facility] Work Phone: Test Performed by [facility], [address] [place], [place] [id number] [place] [address] Work Phone: Comp Panel with Mg Reflexon 02-12-2019 ALP [Catalytic activity/Vol] 86 U/L Normal 38-126 [facility] Comment on above: Performed By: #### H EMDF, BMP3, LFT3, LIPA4, TROPN #### [address] ALT [Catalytic activity/Vol] 81 U/L High 13-69 [facility] Comment on above: Performed By: #### H EMDF, BMP3, LFT3, LIPA4, TROPN #### [address] Anion gap [Moles/Vol] 4 Normal [facility] Comment on above: Performed By: #### H EMDF, BMP3, LFT3, LIPA4, TROPN #### [address] AST [Catalytic activity/Vol] 87 U/L High 15-46 [facility] Comment on above: Performed By: #### H EMDF, BMP3, LFT3, LIPA4, TROPN #### [address] Bilirubin [Mass/Vol] 0.6 mg/dL Normal 0.2-1.3 [facility] Comment on above: Performed By: #### H EMDF, BMP3, LFT3, LIPA4, TROPN #### [address] Calcium [Mass/Vol] 8.8 mg/dL Normal 8.4-10.4 [facility] Comment on above: Performed By: #### H EMDF, BMP3, LFT3, LIPA4, TROPN #### [address] [address] [place], [place] CO2 [Moles/Vol] 27 mmol/L Normal 22-30 [facility] Comment on above: Performed By: #### H EMDF, BMP3, LFT3, LIPA4, TROPN #### [address] [address] [place], [place] Glucose [Mass/Vol] 84 mg/dL Normal 70-100 [facility] Comment on above: Performed By: #### H EMDF, BMP3, LFT3, LIPA4, TROPN #### [address] [address] [place], [place] Protein [Mass/Vol] 5.5 g/dL Low 6.3-8.2 [facility] Comment on above: Performed By: #### H EMDF, BMP3, LFT3, LIPA4, TROPN #### [address] [address] [place], [place] Urea nitrogen [Mass/Vol] 11 mg/dL Normal 7-20 [facility] Comment on above: Performed By: #### H EMDF, BMP3, LFT3, LIPA4, TROPN #### [address] [address] [place], [place] Creatinine [Mass/Vol] 0.78 mg/dL Normal 0.52-1.25 [facility] Comment on above: Performed By: #### H EMDF, BMP3, LFT3, LIPA4, TROPN #### [address] [address] [place], [place] GFR/1.73 sq M predicted among blacks MDRD (S/P/Bld) [Vol rate/Area] mL/min/{1.73_m2} Normal >60 [facility] Comment on above: Performed By: #### H EMDF, BMP3, LFT3, LIPA4, TROPN #### [address] [address] [place], [place] GFR/1.73 sq M predicted among non-blacks MDRD (S/P/Bld) [Vol rate/Area] mL/min/{1.73_m2} Normal >60 [facility] Comment on above: Result Comment: Sour ce- MDRD equation with creatinine calibration to IDMS(NKDEP) eGFR not recommended for drug dose adjustment Performed By: #### H EMDF, BMP3, LFT3, LIPA4, TROPN #### [address] [address] [place], [place] Albumin [Mass/Vol] 2.9 g/dL Low 3.5-5.0 [facility] Comment on above: Performed By: #### H EMDF, BMP3, LFT3, LIPA4, TROPN #### [address] [place], [place] Chloride [Moles/Vol] 110 mmol/L High 98-107 [facility] Comment on above: Performed By: #### H EMDF, BMP3, LFT3, LIPA4, TROPN #### [address] [address] [place], [place] Potassium [Moles/Vol] 3.6 mmol/L Normal 3.5-5.1 [facility] Comment on above: Performed By: #### H EMDF, BMP3, LFT3, LIPA4, TROPN #### [address] [place] [place], [place] Sodium [Moles/Vol] 142 mmol/L Normal 135-145 [facility] Comment on above: Performed By: #### H EMDF, BMP3, LFT3, LIPA4, TROPN #### [address] [place], [place] Comprehensive Metabolic Pane l w/ Reflex to MGOrdered By: Sonny Peres on 02-12-2019 Albumin [Mass/Vol] 2.9 g/dL Low 3.5 - 5 g/dL [facility] Work Phone: ALP [Catalytic activity/Vol] 86 U/L 38 - 126 U/L [facility] Work Phone: [phone] ALT [Catalytic activity/Vol] 81 U/L High 13 - 69 U/L [facility] Work Phone: [phone] Anion gap [Moles/Vol] 4 mmol/L [facility] Work Phone: () [phone] AST [Catalytic activity/Vol] 87 U/L High 15 - 46 U/L [facility] Work Phone: ) 222 Bilirubin [Mass/Vol] 0.6 mg/dL 0.2 - 1 .3 mg/dL [facility] Work Phone: 222 Calcium [Mass/Vol] 8.8 mg/dL 8.4 - 10. 4 mg/dL [facility] Work Phone: 222 Chloride [Moles/Vol] 110 mmol/L High 98 - 10 7 mmol/L [facility] Work Phone: ) 222 CO2 [Moles/Vol] 27 mmol/L 22 - 30 mmol/L [facility] Work Phone: 222 Creatinine [Mass/Vol] 0.78 mg/dL 0.52 - 1.25 mg/dL [facility] Work Phone: ) EGFR IF NonAfrican Moroccan >60.0 >60 mL/min [facility] Work Phone: ) 222 Comment on above: Source- MDRD equatio n with creatinine calibration to IDMS(NKDEP) eGFR not recommended for drug dose adjustment GFR/1.73 sq M.predicted among blacks MDRD (S/P/Bld) [Vol rate/Area] mL/min/{1.73_m2} >60 mL/min [facility] Work Phone: ) 222 Glucose [Mass/Vol] 84 mg/dL 70 - 100 mg/dL [facility] Work Phone: ) 222 Interpretation and review of laboratory results Abnormal [facility] Work Phone: ) 222 Potassium [Moles/Vol] 3.6 mmol/L 3.5 - 5.1 mmol/L [facility] Work Phone: [phone] Protein [Mass/Vol] 5.5 g/dL Low 6.3 - 8.2 g/dL [facility] Work Phone: [phone] Sodium [Moles/Vol] 142 mmol/L 135 - 145 mmol/L [facility] Work Phone: [phone] Urea nitrogen [Mass/Vol] 11 mg/dL 7 - 20 mg/dL [facility] Work Phone: Test Performed by [facility], [address] [place] [address] [facility] Work Phone: Hemogram w/ Autodiffon 02-12 Abs Baso Cnt 0.1 10*3/uL Normal 0.0-0.2 [facility] Comment on above: Performed By: #### H EMDF, BMP3, LFT3, LIPA4, TROPN #### [address] [address] Abs Neutrophile Cnt 4.0 10*3/uL Normal 1.8-7.0 [facility] Comment on above: Performed By: #### H EMDF, BMP3, LFT3, LIPA4, TROPN #### [address] [address] Basophils/100 WBC (Bld) 0.9 % Normal 0.0-2.0 [facility] Comment on above: Performed By: #### H EMDF, BMP3, LFT3, LIPA4, TROPN #### [address] [address] Eosinophils (Bld) [#/Vol] 0.2 10*3/uL Normal 0.0-0.5 [facility] Comment on above: Performed By: #### H EMDF, BMP3, LFT3, LIPA4, TROPN #### [address] [address] Eosinophils/100 WBC (Bld) 3.4 % Normal 1.0-6.0 [facility] Comment on above: Performed By: #### H EMDF, BMP3, LFT3, LIPA4, TROPN #### [address] [address] Erythrocyte distribution width (RBC) [Ratio] 12.4 % Normal 11.5-14.5 [facility] Comment on above: Performed By: #### H EMDF, BMP3, LFT3, LIPA4, TROPN #### [address] [address] Granulocytes/100 WBC (Bld) 71.5 % Normal 40.0-80.0 [facility] Comment on above: Performed By: #### H EMDF, BMP3, LFT3, LIPA4, TROPN #### [address] Hematocrit (Bld) [Volume fraction] 32.5 % Low 35.0-47.0 [facility] Comment on above: Performed By: #### H EMDF, BMP3, LFT3, LIPA4, TROPN #### [address] Hemoglobin (Bld) [Mass/Vol] 11.1 g/dL Low 11.7-16.0 [facility] Comment on above: Performed By: #### H EMDF, BMP3, LFT3, LIPA4, TROPN #### [address] Lymphocytes (Bld) [#/Vol] 1.0 10*3/uL Normal 1.0-4.3 [facility] Comment on above: Performed By: #### H EMDF, BMP3, LFT3, LIPA4, TROPN #### [address] Lymphocytes/100 WBC (Bld) 17.7 % Low 20.0-40.0 [facility] Comment on above: Performed By: #### H EMDF, BMP3, LFT3, LIPA4, TROPN #### [address] MCH (RBC) [Entitic mass] 33.0 pg Normal 26.0-34.0 [facility] Comment on above: Performed By: #### H EMDF, BMP3, LFT3, LIPA4, TROPN #### [address] MCHC (RBC) [Mass/Vol] 34.2 % Normal 32.0-36.0 [facility] Comment on above: Performed By: #### H EMDF, BMP3, LFT3, LIPA4, TROPN #### [address] MCV (RBC) [Entitic vol] 96.5 fL Normal 79.0-98.0 [facility] Comment on above: Performed By: #### H EMDF, BMP3, LFT3, LIPA4, TROPN #### [address] [address] [place], [place] Monocytes (Bld) [#/Vol] 0.4 10*3/uL Normal 0.0-0.8 [facility] Comment on above: Performed By: #### H EMDF, BMP3, LFT3, LIPA4, TROPN #### [address] [address] [place], [place] Monocytes/100 WBC (Bld) 6.5 % Normal 2.0-10.0 [facility] Comment on above: Performed By: #### H EMDF, BMP3, LFT3, LIPA4, TROPN #### [address] [place], [place] Platelet mean volume (Bld) [Entitic vol] 10.3 fL Normal 7.4-10.4 [facility] Comment on above: Performed By: #### H EMDF, BMP3, LFT3, LIPA4, TROPN #### [address] [place], [place] Platelets (Bld) [#/Vol] 163 10*3/uL Normal 140-440 [facility] Comment on above: Performed By: #### H EMDF, BMP3, LFT3, LIPA4, TROPN #### [address] [place], [place] RBC (Bld) [#/Vol] 3.37 10*6/uL Low 3.80-5.20 [facility] Comment on above: Performed By: #### H EMDF, BMP3, LFT3, LIPA4, TROPN #### [address] [place], [place] WBC (Bld) [#/Vol] 5.5 10*3/uL Normal 3.6-10.7 [facility] Comment on above: Performed By: #### H EMDF, BMP3, LFT3, LIPA4, TROPN #### [address] Lipaseon 02-12-2019 Lipase [Catalytic activity/Vol] 173 U/L Normal 23-300 [facility] Comment on above: Performed By: #### H EMDF, BMP3, LFT3, LIPA4, TROPN #### [address] LipaseOrdered By: Sonny montenegro on 02-12-2019 Lipase [Catalytic activity/Vol] 173 U/L 23 - 300 U/L [facility] Work Phone: No Panel InformationOrdered By: Sonny Peres on 02-12-2019 Test Performed by [facility], [address] [place] [address] Work Phone: Prothrombin Timeon 0 INR Coag (PPP) [Relative time] 1.1 Normal 0.9-1.1 [facility] Comment on above: Result Comment: Kervin mmended [...] H EMDF, BMP3, LFT3, LIPA4, TROPN #### [address] PT Coag (PPP) [Time] 11.1 s Normal 9.0-12.0 [facility] [employer] Comment on above: Result Comment: . Performed By: #### H EMDF, BMP3, LFT3, LIPA4, TROPN #### [address] [address] [place], [place] Protime-INROrdered By: Nanette Peres on 02-12-2019 INR Coag (PPP) [Relative time] 1.1 {INR} [facility] Work Phone: Comment on above: Recommended Anticoag [...] [Time] 11.1 s 9 - 12 s [facility] Work Phone: Comment on above: . Test Performed by [facility] [employer], [address] [place] [id number] [facility] Work Phone: Add On Lab TestOrdered By: Juana Lowery on 02-11-2019 Add On Rejected [facility] Work Phone: Comment on above: No specimen availabl e for addon. Test Performed by [facility], [address] [place] [id number] [facility] Work Phone: Add On Lab TestOrdered By: Dasha Montague on 02-11-2019 Add On Accepted [facility] Work Phone: Comment on above: Specimen available & acceptable for analysis. Test Performed by [facility], [address] [place] [id number] [facility] Work Phone: Add on test from HISon 02-11 Add on test from HIS Accepted Normal [facility] [employer] [facility] Comment on above: Result Comment: Spec imen available & acceptable for analysis. Performed By: #### A DDON #### [employer] [facility] [place], [place] Add on test from HIS Rejected Normal [facility] [employer] [facility] Comment on above: Result Comment: No s pecimen available for addon. Performed By: #### A DDON #### [employer] [facility] [place], [place] Basic Metabolic Panelon Anion gap [Moles/Vol] 5 Normal [facility] Comment on above: Performed By: #### H EMDF, BMP3, LFT3, LIPA4, TROPN #### [address] [address] [place], [place] Calcium [Mass/Vol] 8.9 mg/dL Normal 8.4-10.4 [facility] Comment on above: Performed By: #### H EMDF, BMP3, LFT3, LIPA4, TROPN #### [address], [place] CO2 [Moles/Vol] 27 mmol/L Normal 22-30 [facility] Comment on above: Performed By: #### H EMDF, BMP3, LFT3, LIPA4, TROPN #### [address], [place] Creatinine [Mass/Vol] 0.72 mg/dL Normal 0.52-1.25 [facility] Comment on above: Performed By: #### H EMDF, BMP3, LFT3, LIPA4, TROPN #### [address], [place] GFR/1.73 sq M predicted among blacks MDRD (S/P/Bld) [Vol rate/Area] mL/min/{1.73_m2} Normal >60 [facility] Comment on above: Performed By: #### H EMDF, BMP3, LFT3, LIPA4, TROPN #### [address], [place] GFR/1.73 sq M predicted among non-blacks MDRD (S/P/Bld) [Vol rate/Area] mL/min/{1.73_m2} Normal >60 [facility] Comment on above: Result Comment: Sour ce- MDRD equation with creatinine calibration to IDMS(NKDEP) eGFR not recommended for drug dose adjustment Performed By: #### H EMDF, BMP3, LFT3, LIPA4, TROPN #### [address], [place] Glucose [Mass/Vol] 120 mg/dL High 70-100 [facility] Comment on above: Performed By: #### H EMDF, BMP3, LFT3, LIPA4, TROPN #### [facility] [address], [place] Urea nitrogen [Mass/Vol] 15 mg/dL Normal 7-20 [facility] Comment on above: Performed By: #### H EMDF, BMP3, LFT3, LIPA4, TROPN #### [address], [place] Potassium [Moles/Vol] 3.7 mmol/L Normal 3.5-5.1 [facility] Comment on above: Performed By: #### H EMDF, BMP3, LFT3, LIPA4, TROPN #### [address], [place] Sodium [Moles/Vol] 142 mmol/L Normal 135-145 [facility] Comment on above: Performed By: #### H EMDF, BMP3, LFT3, LIPA4, TROPN #### [address], [place] Chloride [Moles/Vol] 111 mmol/L High 98-107 [facility] Comment on above: Performed By: #### H EMDF, BMP3, LFT3, LIPA4, TROPN #### [address], [place] Basic Metabolic PanelOrdered By: Sahil Ribeiro on 02-11-2019 Anion gap [Moles/Vol] 5 mmol/L [facility] Work Phone: Calcium [Mass/Vol] 8.9 mg/dL 8.4 - 10. 4 mg/dL [facility] Work Phone: Chloride [Moles/Vol] 111 mmol/L High 98 - 10 7 mmol/L [facility] Work Phone: CO2 [Moles/Vol] 27 mmol/L 22 - 30 mmol/L [facility] Work Phone: Creatinine [Mass/Vol] 0.72 mg/dL 0.52 - 1.25 mg/dL [facility] Work Phone: EGFR IF NonAfrican Moroccan >60.0 >60 mL/min [facility] Work Phone: [phone] Comment on above: Source- MDRD equatio n with creatinine calibration to IDMS(NKDEP) eGFR not recommended for drug dose adjustment GFR/1.73 sq M.predicted among blacks MDRD (S/P/Bld) [Vol rate/Area] mL/min/{1.73_m2} >60 mL/min [facility] Work Phone: [phone] Glucose [Mass/Vol] 120 mg/dL High 70 - 100 mg/dL [facility] Work Phone: [phone] Potassium [Moles/Vol] 3.7 mmol/L 3.5 - 5.1 mmol/L [facility] Work Phone: ) [phone] Sodium [Moles/Vol] 142 mmol/L 135 - 145 mmol/L [facility] Work Phone: [phone] Urea nitrogen [Mass/Vol] 15 mg/dL 7 - 20 mg/dL [facility] Work Phone: [phone] CBC Auto DifferentialOrdered By: Saihl Ribeiro on 02-11-2019 Absolute Baso # 0.0 10*3/uL 0 - 0.2 10*3/uL [facility] Work Phone: [phone] Absolute Neut # 7.8 10*3/uL High 1.8 - 7 10*3/uL [facility] Work Phone: [phone] Basophils/100 WBC (Bld) 0.3 % 0 - 2 % [facility] Work Phone: [phone] Eosinophils (Bld) [#/Vol] 0.0 10*3/uL 0 - 0.5 10*3/uL [facility] Work Phone: [phone] Eosinophils/100 WBC (Bld) 0.4 % Low 1 - 6 % [facility] Work Phone: [phone] Erythrocyte distribution width (RBC) [Ratio] 12.4 % 11.5 - 14.5 % [facility] Work Phone: [phone] Granulocytes/100 WBC (Bld) 78.7 % 40 - 80 % [facility] Work Phone: [phone] Hematocrit (Bld) [Volume fraction] 34.8 % Low 35 - 47 % [facility] Work Phone: [phone] Hemoglobin (Bld) [Mass/Vol] 11.8 g/dL 11.7 - 16 g/dL [facility] Work Phone: [phone] Interpretation and review of laboratory results Abnormal [facility] Work Phone: [phone] Lymphocytes (Bld) [#/Vol] 1.4 10*3/uL 1 - 4.3 10*3/uL [facility] Work Phone: [phone] Lymphocytes/100 WBC (Bld) 14.5 % Low 20 - 40 % [facility] Work Phone: [phone] MCH (RBC) [Entitic mass] 32.7 pg 26 - 34 pg [facility] Work Phone: () 222 MCHC 33.9 % 32 - 36 % [facility] Work Phone: () 222 MCV (RBC) [Entitic vol] 96.7 fL 79 - 98 fL [facility] Work Phone: () [phone] Monocytes (Bld) [#/Vol] 0.6 10*3/uL 0 - 0.8 10*3/uL [facility] Work Phone: [phone] Monocytes/100 WBC (Bld) 6.1 % 2 - 10 % [facility] Work Phone: () 222 Platelet mean volume (Bld) [Entitic vol] 10.0 fL 7.4 - 10.4 fL [facility] Work Phone: [phone] Platelets (Bld) [#/Vol] 193 10*3/uL 140 - 440 10*3/uL [facility] Work Phone: [phone] RBC (Bld) [#/Vol] 3.60 10*6/uL Low 3.8 - 5.2 10*6/uL [facility] Work Phone: [phone] WBC (Bld) [#/Vol] 9.9 10*3/uL 3.6 - 10.7 10*3/uL [facility] Work Phone: [phone] Test Performed by [facility], [address] [place] [address] [facility] Work Phone: [phone] EKG 12 Lead - Chest PainOrde red By: Sahil Ribeiro on 02-11-2019 [facility] Test Date: 2019-02-11 Pat Name: Prema Villalpando Department: 1A Room: 5125 Gender: F [employer]: HAKEEM : 1940 Requested By: SAHIL RIBEIRO Order Number: [id number] Reading MD: Zack Lopez Measurements Intervals [place] Rate: 69 P: TX: QRS: -12 QRSD: 85 T: -16 QT: 413 QTc: 443 Interpretive Statements Atrial fibrillation Low voltage, extremity and precordial leads Electronically Signed On 02-11-2019 22:54:26 EST by Zakc Lopez [facility] Work Phone: Kash, [facility] Incoming Cardiology Results From [facility] - 02/11/2019 10:55 PM EST [facility] Test Date: 2019-02-11 Pat Name: Prema Villalpando Department: [facility] Room: 5125 Gender: F Model [employer]: HAKEEM : 1940 Requested By: SAHIL RIBEIRO Order Number: [id number] Reading MD: Zack Lopez Measurements Intervals [place] Rate: 69 P: [place]: QRS: -12 QRSD: 85 T: -16 QT: 413 QTc: 443 Interpretive Statements Atrial fibrillation Low voltage, extremity and precordial leads Electronically Signed On 02-11-2019 22:54:26 EST by Zack Lopez [facility] Work Phone: HEPATIC FUNCTION PANELOrdere d By: Sahil Ribeiro on 02-11-2019 Albumin [Mass/Vol] 3.3 g/dL Low 3.5 - 5 g/dL [facility] Work Phone: ALP [Catalytic activity/Vol] 83 U/L 38 - 126 U/L [facility] Work Phone: ALT [Catalytic activity/Vol] 64 U/L 13 - 69 U/L [facility] Work Phone: AST [Catalytic activity/Vol] 76 U/L High 15 - 46 U/L [facility] Work Phone: Bilirubin [Mass/Vol] 0.5 mg/dL 0.2 - 1 .3 mg/dL [facility] Work Phone: Bilirubin.indirect [Mass/Vol] 0.0 mg/dL 0 - 0.3 mg/dL [facility] Work Phone: Protein [Mass/Vol] 6.2 g/dL Low 6.3 - 8.2 g/dL [facility] Work Phone: Hemogram w/ Autodiffon 02-11 Abs Baso Cnt 0.0 10*3/uL Normal 0.0-0.2 [facility] Comment on above: Performed By: #### H EMDF, BMP3, LFT3, LIPA4, TROPN #### [address], [place] Abs Neutrophile Cnt 7.8 10*3/uL High 1.8-7.0 [facility] Comment on above: Performed By: #### H EMDF, BMP3, LFT3, LIPA4, TROPN #### [address] [address] [place], [place] Basophils/100 WBC (Bld) 0.3 % Normal 0.0-2.0 [facility] Comment on above: Performed By: #### H EMDF, BMP3, LFT3, LIPA4, TROPN #### [address], [place] Eosinophils (Bld) [#/Vol] 0.0 10*3/uL Normal 0.0-0.5 [facility] Comment on above: Performed By: #### H EMDF, BMP3, LFT3, LIPA4, TROPN #### [address] [address] [place], [place] Eosinophils/100 WBC (Bld) 0.4 % Low 1.0-6.0 [facility] Comment on above: Performed By: #### H EMDF, BMP3, LFT3, LIPA4, TROPN #### [address] Erythrocyte distribution width (RBC) [Ratio] 12.4 % Normal 11.5-14.5 [facility] Comment on above: Performed By: #### H EMDF, BMP3, LFT3, LIPA4, TROPN #### [address] Granulocytes/100 WBC (Bld) 78.7 % Normal 40.0-80.0 [facility] Comment on above: Performed By: #### H EMDF, BMP3, LFT3, LIPA4, TROPN #### [address] Hematocrit (Bld) [Volume fraction] 34.8 % Low 35.0-47.0 [facility] Comment on above: Performed By: #### H EMDF, BMP3, LFT3, LIPA4, TROPN #### [address] Hemoglobin (Bld) [Mass/Vol] 11.8 g/dL Normal 11.7-16.0 [facility] Comment on above: Performed By: #### H EMDF, BMP3, LFT3, LIPA4, TROPN #### [address] Lymphocytes (Bld) [#/Vol] 1.4 10*3/uL Normal 1.0-4.3 [facility] Comment on above: Performed By: #### H EMDF, BMP3, LFT3, LIPA4, TROPN #### [address] Lymphocytes/100 WBC (Bld) 14.5 % Low 20.0-40.0 [facility] Comment on above: Performed By: #### H EMDF, BMP3, LFT3, LIPA4, TROPN #### [address] MCH (RBC) [Entitic mass] 32.7 pg Normal 26.0-34.0 [facility] Comment on above: Performed By: #### H EMDF, BMP3, LFT3, LIPA4, TROPN #### [address] MCHC (RBC) [Mass/Vol] 33.9 % Normal 32.0-36.0 [facility] Comment on above: Performed By: #### H EMDF, BMP3, LFT3, LIPA4, TROPN #### [address], [place] MCV (RBC) [Entitic vol] 96.7 fL Normal 79.0-98.0 [facility] Comment on above: Performed By: #### H EMDF, BMP3, LFT3, LIPA4, TROPN #### [address], [place] Monocytes (Bld) [#/Vol] 0.6 10*3/uL Normal 0.0-0.8 [facility] Comment on above: Performed By: #### H EMDF, BMP3, LFT3, LIPA4, TROPN #### [address], [place] Monocytes/100 WBC (Bld) 6.1 % Normal 2.0-10.0 [facility] Comment on above: Performed By: #### H EMDF, BMP3, LFT3, LIPA4, TROPN #### [address], [place] Platelet mean volume (Bld) [Entitic vol] 10.0 fL Normal 7.4-10.4 [facility] Comment on above: Performed By: #### H EMDF, BMP3, LFT3, LIPA4, TROPN #### [address], [place] Platelets (Bld) [#/Vol] 193 10*3/uL Normal 140-440 [facility] Comment on above: Performed By: #### H EMDF, BMP3, LFT3, LIPA4, TROPN #### [address], [place] RBC (Bld) [#/Vol] 3.60 10*6/uL Low 3.80-5.20 [facility] Comment on above: Performed By: #### H EMDF, BMP3, LFT3, LIPA4, TROPN #### [address] [address] [place], [place] WBC (Bld) [#/Vol] 9.9 10*3/uL Normal 3.6-10.7 [facility] Comment on above: Performed By: #### H EMDF, BMP3, LFT3, LIPA4, TROPN #### [address], [place] Hepatic Functionon 0 ALP [Catalytic activity/Vol] 83 U/L Normal 38-126 [facility] Comment on above: Performed By: #### H EMDF, BMP3, LFT3, LIPA4, TROPN #### [address] ALT [Catalytic activity/Vol] 64 U/L Normal 13-69 [facility] Comment on above: Performed By: #### H EMDF, BMP3, LFT3, LIPA4, TROPN #### [address] AST [Catalytic activity/Vol] 76 U/L High 15-46 [facility] Comment on above: Performed By: #### H EMDF, BMP3, LFT3, LIPA4, TROPN #### [address] Bilirubin [Mass/Vol] 0.5 mg/dL Normal 0.2-1.3 [facility] Comment on above: Performed By: #### H EMDF, BMP3, LFT3, LIPA4, TROPN #### [address], [place] Bilirubin.direct [Mass/Vol] 0.0 mg/dL Normal 0.0-0.3 [facility] Comment on above: Performed By: #### H EMDF, BMP3, LFT3, LIPA4, TROPN #### [address] Protein [Mass/Vol] 6.2 g/dL Low 6.3-8.2 [facility] Comment on above: Performed By: #### H EMDF, BMP3, LFT3, LIPA4, TROPN #### [address] Albumin [Mass/Vol] 3.3 g/dL Low 3.5-5.0 [facility] Comment on above: Performed By: #### H EMDF, BMP3, LFT3, LIPA4, TROPN #### [facility] [address] [place] [address] Lipaseon 02-11-2019 Lipase [Catalytic activity/Vol] 164 U/L Normal 23-300 [facility] Comment on above: Performed By: #### H EMDF, BMP3, LFT3, LIPA4, TROPN #### [facility] [address] [place] [address] LipaseOrdered By: Sahil Craft son on 02-11-2019 Lipase [Catalytic activity/Vol] 164 U/L 23 - 300 U/L [facility] Work Phone: MRI ABDOMEN WO CONTRASTOrder ed By: Gem Lowery on 02-11-2019 Patient Name: PREMA VILLALPANDO ---MRI--- Exam Date/Time 02/11/2019 13:41:50 EST Exam MRI Abdomen w/o Contrast Ordering Physician DO LOWERY ELISABETH Accession Number [id number] CPT4 Codes 59697 () Reason For Exam evaluate for choledocholithiasis [...] [facility] Incoming Radiology Results From [facility] - 02/11/2019 2:56 PM EST Patient Name: PREMA VILLALPANDO ---MRI--- Exam Date/Time 02/11/2019 13:41:50 EST Exam MRI Abdomen w/o Contrast Ordering Physician DO LOWERY ELISABETH Accession Number [id number] CPT4 Codes 48064 () Reason For Exam evaluate for choledocholithiasis [...] Ordering Physician DO LOWERY ELISABETH Accession Number [id number] CPT4 Codes 16526 () Reason For Exam evaluate for choledocholithiasis [...] Transcribed Date and Time: 02/11/2019 2:42 Normal [facility] No Panel InformationOrdered By: Sahil Ribeiro on 02-11-2019 Interpretation and review of laboratory results Abnormal [facility] Work Phone: Test Performed by [facility], [address] [place] [id number] [facility] Work Phone: PROTIME/INR & PTTOrdered By: Gem Lowery on 02-11-2019 aPTT Coag (Bld) [Time] 27 s 20 - 30.5 s S [facility] Work Phone: Comment on above: NOTE: The therapeuti c time for Heparin anticoagulation, based on Xa activity inhibition, is an APTT of 46-80 seconds. INR Coag (PPP) [Relative time] 1.0 {INR} Differential Work Phone: Comment on above: Recommended Anticoag [...] [Time] 11 s 9 - 12 s [facility] Work Phone: Comment on above: . Test Performed by [facility], [address] [place] [address] Differential Work Phone: Protime AND APTTon 0 INR Coag (PPP) [Relative time] 1.0 Normal 0.9-1.1 [facility] Comment on above: Result Comment: Kervin mmended [...] Infarction Performed By: #### P T/AP #### [facility] [address] [place] [id number] PT Coag (PPP) [Time] 11.0 s Normal 9.0-12.0 [facility] Comment on above: Result Comment: . Performed By: #### P T/AP #### [address] aPTT Coag (Bld) [Time] 27.0 s Normal 20.0-30.5 [facility] Comment on above: Result Comment: NOTE : The therapeutic time for Heparin anticoagulation, based on Xa activity inhibition, is an APTT of 46-80 seconds. Performed By: #### P T/AP #### [address] TroponinOrdered By: Jf on 02-11-2019 Troponin I.cardiac [Mass/Vol] ng/mL 0 - 0.034 ng/mL [facility] Work Phone: Comment on above: . Test Performed by [facility], [address] [place] [address] Work Phone: Troponin Ion 02-11-2019 Troponin I.cardiac [Mass/Vol] ng/mL Normal 0.000-0.034 [facility] Comment on above: Result Comment: . Performed By: #### H EMDF, BMP3, LFT3, LIPA4, TROPN #### [address] US ABDOMEN LIMITED Specify o rgan? GALLBLADDER, PANCREAS, LIVEROrdered By: Yusuf Andino on 02-11-2019 Patient Name: PREMA VILLALPANDO ---Ultrasound--- Exam Date/Time 02/11/2019 08:31:45 EST Exam US Abdomen Limited Ordering Physician Rita ANDINO, YUSUF Lou Accession Number [id number] CPT4 Codes 17866 () Reason For Exam RUQ pain Report [...] [facility] Incoming Radiology Results From [facility] - 02/11/2019 9:11 AM EST Patient Name: PREMA VILLALPANDO ---Ultrasound--- Exam Date/Time 02/11/2019 08:31:45 EST Exam US Abdomen Limited Ordering Physician Rita ANDINO SHELLY D Accession Number [id number] CPT4 Codes 68062 () Reason For Exam RUQ pain Report [...] 9:06 [facility] Work Phone: US Abdomen Limitedon 020 US Abdomen Limited Patient Name: PREMA VILLALPANDO Ultrasound Exam Date/Time 02/11/2019 08:31:45 EST Exam US Abdomen Limited Ordering Physician Rita ANDINO SHELLY D Accession Number [id number] CPT4 Codes 21624 () Reason For Exam RUQ pain Report [...] Transcribed Date and Time: 02/11/2019 9:06 Normal [facility] Comprehensive Metabolic Pane keely 09-21-2018 Albumin [Mass/Vol] 3.5 g/dL 3.5 - 5 g/dL [place] ALP [Catalytic activity/Vol] 117 U/L 38 - 126 U/L [place] ALT [Catalytic activity/Vol] 47 U/L 13 - 69 U/L [place] Anion gap [Moles/Vol] 5 mmol/L [place] AST [Catalytic activity/Vol] 137 U/L High 15 - 46 U/L [place] Bilirubin Ql (U) 0.7 mg/dL 0.2 - 1.3 mg/dL [place] Calcium [Mass/Vol] 9.4 mg/dL 8.4 - 10. 4 mg/dL [place] Chloride [Moles/Vol] 102 mmol/L 98 - 10 7 mmol/L [place] CO2 [Moles/Vol] 28 mmol/L 22 - 30 mmol/L [place] Creatinine [Mass/Vol] 0.61 mg/dL 0.52 - 1.25 mg/dL [place] EGFR IF NonAfrican [place]occan >60.0 >60 mL/min [place] Comment on above: Source- MDRD equatio n with creatinine calibration to IDMS(NKDEP) eGFR not recommended for drug dose adjustment GFR/1.73 sq M predicted among blacks MDRD (S/P/Bld) [Vol rate/Area] mL/min/{1.73_m2} >60 mL/min [place] Glucose [Mass/Vol] 135 mg/dL High 70 - 100 mg/dL [place] Interpretation and review of laboratory results Abnormal [place] Potassium [Moles/Vol] 3.4 mmol/L Low 3.5 - 5.1 mmol/L [place] Protein [Mass/Vol] 6.6 g/dL 6.3 - 8.2 g/dL [place] Sodium [Moles/Vol] 134 mmol/L Low 135 - 145 mmol/L [place] Urea nitrogen [Mass/Vol] 5 mg/dL Low 7 - 20 mg/dL [place] Test Performed by [facility], [address], [place], [place] [address] [place] CBC Auto Differentialon 09-08 Absolute Baso # 0.1 10*3/uL 0 - 0.2 10*3/uL [place] Absolute Neut # 5.1 10*3/uL 1.8 - 7 10*3/uL [place] Basophils/100 WBC (Bld) 0.8 % 0 - 2 % [place] Eosinophils (Bld) [#/Vol] 0.2 10*3/uL 0 - 0.5 10*3/uL [place] Eosinophils/100 WBC (Bld) 3.4 % 1 - 6 % [place] Erythrocyte distribution width (RBC) [Ratio] 17.3 % High 11.5 - 14.5 % [place] Granulocytes/100 WBC (Bld) 68.2 % 40 - 80 % [place] Hematocrit (Bld) [Volume fraction] 35.1 % 35 - 47 % [place] Hemoglobin (Bld) [Mass/Vol] 11.4 g/dL Low 11.7 - 16 g/dL [place] Interpretation and review of laboratory results Abnormal [place] Lymphocytes (Bld) [#/Vol] 1.5 10*3/uL 1 - 4.3 10*3/uL [place] Lymphocytes/100 WBC (Bld) 20.2 % 20 - 40 % [place] MCH (RBC) [Entitic mass] 29.0 pg 26 - 34 pg [place] MCHC (RBC) [Mass/Vol] 32.6 % 32 - 36 % [place] MCV (RBC) [Entitic vol] 88.9 fL 79 - 98 fL [place] Monocytes (Bld) [#/Vol] 0.5 10*3/uL 0 - 0.8 10*3/uL [place] Monocytes/100 WBC (Bld) 7.4 % 2 - 10 % [place] Platelet mean volume (Bld) [Entitic vol] 9.6 fL 7.4 - 10.4 fL [place] Platelets (Bld) [#/Vol] 232 10*3/uL 140 - 440 10*3/uL [place] RBC (Bld) [#/Vol] 3.95 10*6/uL 3.8 - 5.2 10*6/uL [place] WBC (Bld) [#/Vol] 7.4 10*3/uL 3.6 - 10.7 10*3/uL [place] Test Performed by [facility], [address], [place], [place] [address] [place] Comprehensive Metabolic Pane keely 09-20-2018 Albumin [Mass/Vol] 3.6 g/dL 3.5 - 5 g/dL [place] ALP [Catalytic activity/Vol] 141 U/L High 38 - 126 U/L [place] ALT [Catalytic activity/Vol] 56 U/L 13 - 69 U/L [place] Anion gap [Moles/Vol] 10 mmol/L [place] AST [Catalytic activity/Vol] 68 U/L High 15 - 46 U/L [place] Bilirubin Ql (U) 0.6 mg/dL 0.2 - 1.3 mg/dL [place] Calcium [Mass/Vol] 9.3 mg/dL 8.4 - 10. 4 mg/dL [place] Chloride [Moles/Vol] 104 mmol/L 98 - 10 7 mmol/L [place] CO2 [Moles/Vol] 25 mmol/L 22 - 30 mmol/L [place] Creatinine [Mass/Vol] 0.63 mg/dL 0.52 - 1.25 mg/dL [place] EGFR IF NonAfrican [place]occan >60.0 >60 mL/min [place] Comment on above: Source- MDRD equatio n with creatinine calibration to IDMS(NKDEP) eGFR not recommended for drug dose adjustment GFR/1.73 sq M predicted among blacks MDRD (S/P/Bld) [Vol rate/Area] mL/min/{1.73_m2} >60 mL/min [place] Glucose [Mass/Vol] 136 mg/dL High 70 - 100 mg/dL [place] Potassium [Moles/Vol] 3.7 mmol/L 3.5 - 5.1 mmol/L [place] Protein [Mass/Vol] 6.6 g/dL 6.3 - 8.2 g/dL [place] Sodium [Moles/Vol] 140 mmol/L 135 - 145 mmol/L [place] Urea nitrogen [Mass/Vol] 8 mg/dL 7 - 20 mg/dL [place] Lactate Dehydrogenaseon 09-08 LD 182 U/L High 50 - 170 U/L [place] Otheron 09-20-2018 Blood Culture, Routine No growth at 5 days. [place] Test Performed by [facility], [address] [place] [address] Specimen Source Comment:Blood [place] Interpretation and review of laboratory results Abnormal [place] Test Performed by [facility], [address] [place], [place] [address] [place] CBC Auto Differentialon 09-08 Absolute Baso # 0.1 10*3/uL 0 - 0.2 10*3/uL [place] Absolute Neut # 4.2 10*3/uL 1.8 - 7 10*3/uL [place] Basophils/100 WBC (Bld) 1.0 % 0 - 2 % [place] Eosinophils (Bld) [#/Vol] 0.2 10*3/uL 0 - 0.5 10*3/uL [place] Eosinophils/100 WBC (Bld) 4.0 % 1 - 6 % [place] Erythrocyte distribution width (RBC) [Ratio] 17.7 % High 11.5 - 14.5 % [place] Granulocytes/100 WBC (Bld) 68.4 % 40 - 80 % [place] Hematocrit (Bld) [Volume fraction] 32.0 % Low 35 - 47 % [place] Hemoglobin (Bld) [Mass/Vol] 10.6 g/dL Low 11.7 - 16 g/dL [place] Interpretation and review of laboratory results Abnormal [place] Lymphocytes (Bld) [#/Vol] 1.2 10*3/uL 1 - 4.3 10*3/uL [place] Lymphocytes/100 WBC (Bld) 19.7 % Low 20 - 40 % [place] MCH (RBC) [Entitic mass] 29.0 pg 26 - 34 pg [place] MCHC (RBC) [Mass/Vol] 33.2 % 32 - 36 % [place] MCV (RBC) [Entitic vol] 87.4 fL 79 - 98 fL [place] Monocytes (Bld) [#/Vol] 0.4 10*3/uL 0 - 0.8 10*3/uL [place] Monocytes/100 WBC (Bld) 6.9 % 2 - 10 % [place] Platelet mean volume (Bld) [Entitic vol] 9.4 fL 7.4 - 10.4 fL [place] Platelets (Bld) [#/Vol] 225 10*3/uL 140 - 440 10*3/uL [place] RBC (Bld) [#/Vol] 3.66 10*6/uL Low 3.8 - 5.2 10*6/uL [place] WBC (Bld) [#/Vol] 6.2 10*3/uL 3.6 - 10.7 10*3/uL [place] Test Performed by [facility], [address], [place], [place] [id number] [place] [address] Comprehensive Metabolic Pane keely 09-19-2018 Albumin [Mass/Vol] 3.3 g/dL Low 3.5 - 5 g/dL [place], [place] ALP [Catalytic activity/Vol] 117 U/L 38 - 126 U/L [place] ALT [Catalytic activity/Vol] 78 U/L High 13 - 69 U/L [place] Anion gap [Moles/Vol] 5 mmol/L [place], [place] AST [Catalytic activity/Vol] 52 U/L High 15 - 46 U/L [place] Bilirubin Ql (U) 0.8 mg/dL 0.2 - 1.3 mg/dL [place] Calcium [Mass/Vol] 9.0 mg/dL 8.4 - 10. 4 mg/dL [place] Chloride [Moles/Vol] 102 mmol/L 98 - 10 7 mmol/L [place] CO2 [Moles/Vol] 27 mmol/L 22 - 30 mmol/L [place] Creatinine [Mass/Vol] 0.66 mg/dL 0.52 - 1.25 mg/dL [place] EGFR IF NonAfrican [place]oc[place] >60.0 >60 mL/min [place] Comment on above: Source- MDRD equatio n with creatinine calibration to IDMS(NKDEP) eGFR not recommended for drug dose adjustment GFR/1.73 sq M predicted among blacks MDRD (S/P/Bld) [Vol rate/Area] mL/min/{1.73_m2} >60 mL/min [place] Glucose [Mass/Vol] 125 mg/dL High 70 - 100 mg/dL [place] Interpretation and review of laboratory results Abnormal [place] Potassium [Moles/Vol] 3.8 mmol/L 3.5 - 5.1 mmol/L [place] Protein [Mass/Vol] 6.3 g/dL 6.3 - 8.2 g/dL [place] Sodium [Moles/Vol] 133 mmol/L Low 135 - 145 mmol/L [place] Urea nitrogen [Mass/Vol] 10 mg/dL 7 - 20 mg/dL [place] Lipaseon 09-19-2018 Lipase [Catalytic activity/Vol] 247 U/L 23 - 300 U/L [place] Otheron 09-19-2018 Test Performed by [facility], [address], [place], [place] [address] [place] US ABDOMEN LIMITEDon 019 Patient Name: PREMA VILLALPANDO ---Ultrasound--- Exam Date/Time 09/19/2018 14:28:18 EDT Exam US Abdomen Limited Ordering Physician MD SCHWARZ RICHARD H Accession Number [id number] CPT4 Codes 56624 () Reason For Exam re-eval pancreas, rising [...] RUSSELL Transcribed Date and Time: 09/19/2018 3:29 [place], [place] [facility], [facility] Incoming Radiology Results From [facility] - 09/19/2018 3:29 PM EDT Patient Name: PREMA VILLALPANDO ---Ultrasound--- Exam Date/Time 09/19/2018 14:28:18 EDT Exam US Abdomen Limited Ordering Physician MD CHONG SEEMA Liam Accession Number [id number] CPT4 Codes 03198 () Reason For Exam re-eval pancreas, rising [...] RUSSELL Transcribed Date and Time: 09/19/2018 3:29 [facility], [place] CBC Auto Differentialon 09-08 Absolute Baso # 0.1 10*3/uL 0 - 0.2 10*3/uL [place] Absolute Neut # 6.1 10*3/uL 1.8 - 7 10*3/uL [place] Basophils/100 WBC (Bld) 0.9 % 0 - 2 % [place] Eosinophils (Bld) [#/Vol] 0.4 10*3/uL 0 - 0.5 10*3/uL [place] Eosinophils/100 WBC (Bld) 4.0 % 1 - 6 % [place] Erythrocyte distribution width (RBC) [Ratio] 18.1 % High 11.5 - 14.5 % [place] Granulocytes/100 WBC (Bld) 68.6 % 40 - 80 % [place] Hematocrit (Bld) [Volume fraction] 36.2 % 35 - 47 % [place] Hemoglobin (Bld) [Mass/Vol] 11.8 g/dL 11.7 - 16 g/dL [place] Lymphocytes (Bld) [#/Vol] 1.8 10*3/uL 1 - 4.3 10*3/uL [place] Lymphocytes/100 WBC (Bld) 19.9 % Low 20 - 40 % [place] MCH (RBC) [Entitic mass] 28.8 pg 26 - 34 pg [place] MCHC (RBC) [Mass/Vol] 32.7 % 32 - 36 % [place] MCV (RBC) [Entitic vol] 88.1 fL 79 - 98 fL [place] Monocytes (Bld) [#/Vol] 0.6 10*3/uL 0 - 0.8 10*3/uL [place] Monocytes/100 WBC (Bld) 6.6 % 2 - 10 % [place] Platelet mean volume (Bld) [Entitic vol] 9.3 fL 7.4 - 10.4 fL [place] Platelets (Bld) [#/Vol] 281 10*3/uL 140 - 440 10*3/uL [place] RBC (Bld) [#/Vol] 4.11 10*6/uL 3.8 - 5.2 10*6/uL [place] WBC (Bld) [#/Vol] 8.9 10*3/uL 3.6 - 10.7 10*3/uL [place] Comprehensive Metabolic Pane keely 09-18-2018 Albumin [Mass/Vol] 3.7 g/dL 3.5 - 5 g/dL [place] ALP [Catalytic activity/Vol] 165 U/L High 38 - 126 U/L [place] ALT [Catalytic activity/Vol] 93 U/L High 13 - 69 U/L [place] Anion gap [Moles/Vol] 5 mmol/L [place] AST [Catalytic activity/Vol] 69 U/L High 15 - 46 U/L [place] Bilirubin Ql (U) 0.8 mg/dL 0.2 - 1.3 mg/dL [place] Calcium [Mass/Vol] 9.4 mg/dL 8.4 - 10. 4 mg/dL [place] Chloride [Moles/Vol] 102 mmol/L 98 - 10 7 mmol/L [place] CO2 [Moles/Vol] 28 mmol/L 22 - 30 mmol/L [place] Creatinine [Mass/Vol] 0.7 mg/dL 0.52 - 1.25 mg/dL [place] EGFR IF NonAfrican Moroccan >60.0 >60 mL/min [place] Comment on above: Source- MDRD equatio n with creatinine calibration to IDMS(NKDEP) eGFR not recommended for drug dose adjustment GFR/1.73 sq M predicted among blacks MDRD (S/P/Bld) [Vol rate/Area] mL/min/{1.73_m2} >60 mL/min [place] Glucose [Mass/Vol] 133 mg/dL High 70 - 100 mg/dL [place] Potassium [Moles/Vol] 3.6 mmol/L 3.5 - 5.1 mmol/L [place] Protein [Mass/Vol] 7.0 g/dL 6.3 - 8.2 g/dL [place] Sodium [Moles/Vol] 136 mmol/L 135 - 145 mmol/L [place] Urea nitrogen [Mass/Vol] 10 mg/dL 7 - 20 mg/dL [place] Lipaseon 09-18-2018 Lipase [Catalytic activity/Vol] 513 U/L High 23 - 300 U/L [place] Otheron 09-18-2018 Interpretation and review of laboratory results Abnormal [place] Test Performed by [facility], [address], [place], [place] [address] [place] Comprehensive Metabolic Pane keely 09-17-2018 Albumin [Mass/Vol] 3.4 g/dL Low 3.5 - 5 g/dL [place] ALP [Catalytic activity/Vol] 146 U/L High 38 - 126 U/L [place] ALT [Catalytic activity/Vol] 109 U/L High 13 - 69 U/L [place] Anion gap [Moles/Vol] 7 mmol/L [place] AST [Catalytic activity/Vol] 76 U/L High 15 - 46 U/L [place] Bilirubin Ql (U) 0.6 mg/dL 0.2 - 1.3 mg/dL [place] Calcium [Mass/Vol] 9.0 mg/dL 8.4 - 10. 4 mg/dL [place] Chloride [Moles/Vol] 104 mmol/L 98 - 10 7 mmol/L [place] CO2 [Moles/Vol] 27 mmol/L 22 - 30 mmol/L [place] Creatinine [Mass/Vol] 0.66 mg/dL 0.52 - 1.25 mg/dL [place] EGFR IF NonAfrican Moroccan >60.0 >60 mL/min [place] Comment on above: Source- MDRD equatio n with creatinine calibration to IDMS(NKDEP) eGFR not recommended for drug dose adjustment GFR/1.73 sq M predicted among blacks MDRD (S/P/Bld) [Vol rate/Area] mL/min/{1.73_m2} >60 mL/min [place] Glucose [Mass/Vol] 141 mg/dL High 70 - 100 mg/dL [place] Potassium [Moles/Vol] 3.3 mmol/L Low 3.5 - 5.1 mmol/L [place] Protein [Mass/Vol] 6.4 g/dL 6.3 - 8.2 g/dL [place] Sodium [Moles/Vol] 139 mmol/L 135 - 145 mmol/L [place] Urea nitrogen [Mass/Vol] 8 mg/dL 7 - 20 mg/dL [place] Lipaseon 09-17-2018 Lipase [Catalytic activity/Vol] 351 U/L High 23 - 300 U/L [place] NM HEPATOBILIARY W/O CCKon 0 09-17-2018 Patient Name: PREMA VILLALPANDO ---Nuc Med--- Exam Date/Time 09/17/2018 09:00:00 EDT Exam NM Hepatobiliary System Imaging Ordering Physician KIKO LAU MD Accession Number [id number] CPT4 Codes 16790 () Reason For Exam abd pain Report [...] J Transcribed Date and Time: 09/17/2018 10:54 [place], [facility] Incoming Radiology Results From [facility] - 09/17/2018 10:55 AM EDT Patient Name: PREMA VILLALPANDO ---Nuc Med--- Exam Date/Time 09/17/2018 09:00:00 EDT Exam NM Hepatobiliary System Imaging Ordering Physician KIKO ALU MD Accession Number [id number] CPT4 Codes 02590 () Reason For Exam abd pain Report [...] J Transcribed Date and Time: 09/17/2018 10:54 [facility] [employer] Otheron 09-17-2018 Interpretation and review of laboratory results Abnormal [facility] [employer] Test Performed by [employer] [facility], [address] [place] [id number] [facility] URINE CULTUREon 09-17-2018 Bacteria identified Cx Nom (U) Group B streptococcus Abnormal [facility] [employer] [place], [place] Bacteria identified Cx Nom (U) 10,000-50,000 CFU/ml Susceptibility testing not routinely performed. Group B streptococcus is universally susceptible to beta-lactam antibiotics and vancomycin. If patient is beta-lactam allergic, please call [facility] Microbiology lab ([phone]) within 2 days to request susceptibility testing. If isolated from urine, Group B strep may indicate colonization or infection. [facility] [employer] [facility] [employer] Bacteria identified Cx Nom (U) Normal urogenital nayeli present. Abnormal [facility] [employer] Interpretation and review of laboratory results [facility]normal [facility] Test Performed by [facility], [address] [place] [id number] Specimen Source Comment:Urine, clean catch [facility] [employer] 09-16-2018 Erythrocyte distribution width (RBC) [Ratio] 17.5 % High 11.5 - 14.5 % [facility] [place] Hematocrit (Bld) [Volume fraction] 34.0 % Low 35 - 47 % [place] Hemoglobin (Bld) [Mass/Vol] 11.3 g/dL Low 11.7 - 16 g/dL [place] Interpretation and review of laboratory results Abnormal [place] MCH (RBC) [Entitic mass] 28.9 pg 26 - 34 pg [place] MCHC (RBC) [Mass/Vol] 33.2 % 32 - 36 % [place] MCV (RBC) [Entitic vol] 87.1 fL 79 - 98 fL [place] Platelet mean volume (Bld) [Entitic vol] 9.4 fL 7.4 - 10.4 fL [place] Platelets (Bld) [#/Vol] 247 10*3/uL 140 - 440 10*3/uL [place] RBC (Bld) [#/Vol] 3.91 10*6/uL 3.8 - 5.2 10*6/uL [place] WBC (Bld) [#/Vol] 8.1 10*3/uL 3.6 - 10.7 10*3/uL [place] Test Performed by [facility], [address], [place], [place] [address] [place] Comprehensive Metabolic Pane l w/ Reflex to MGon 09-16-2018 Albumin [Mass/Vol] 3.7 g/dL 3.5 - 5 g/dL [place] ALP [Catalytic activity/Vol] 145 U/L High 38 - 126 U/L [place] ALT [Catalytic activity/Vol] 145 U/L High 13 - 69 U/L [place] Anion gap [Moles/Vol] 7 mmol/L [place] AST [Catalytic activity/Vol] 133 U/L High 15 - 46 U/L [place] Bilirubin Ql (U) 0.9 mg/dL 0.2 - 1.3 mg/dL [place] Calcium [Mass/Vol] 9.1 mg/dL 8.4 - 10. 4 mg/dL [place] Chloride [Moles/Vol] 99 mmol/L 98 - 10 7 mmol/L [place] CO2 [Moles/Vol] 29 mmol/L 22 - 30 mmol/L [place] Creatinine [Mass/Vol] 0.75 mg/dL 0.52 - 1.25 mg/dL [place] EGFR IF NonAfrican Moroccan >60.0 >60 mL/min [place] Comment on above: Source- MDRD equatio n with creatinine calibration to IDMS(NKDEP) eGFR not recommended for drug dose adjustment GFR/1.73 sq M predicted among blacks MDRD (S/P/Bld) [Vol rate/Area] mL/min/{1.73_m2} >60 mL/min [place] Glucose [Mass/Vol] 131 mg/dL High 70 - 100 mg/dL [place] Interpretation and review of laboratory results Abnormal [place] Potassium [Moles/Vol] 3.2 mmol/L Low 3.5 - 5.1 mmol/L [place] Protein [Mass/Vol] 6.8 g/dL 6.3 - 8.2 g/dL [place] Sodium [Moles/Vol] 135 mmol/L 135 - 145 mmol/L [place] Urea nitrogen [Mass/Vol] 11 mg/dL 7 - 20 mg/dL [place] Test Performed by [facility], [address] [place], [place] [address] [place] MRI ABDOMEN WO CONTRASTon Patient Name: PREMA VILLALPANDO ---MRI--- Exam Date/Time 09/16/2018 16:17:45 EDT Exam MRI Abdomen w/o Contrast Ordering Physician KIKO LAU MD Accession Number [id number] CPT4 Codes 78657 () Reason For Exam gallstones,abd pain Report [...] M Transcribed Date and Time: 09/16/2018 6:06 [place], [facility] Incoming Radiology Results From [facility] - 09/16/2018 6:06 PM EDT Patient Name: PREMA VILLALPANDO ---MRI--- Exam Date/Time 09/16/2018 16:17:45 EDT Exam MRI Abdomen w/o Contrast Ordering Physician KIKO LAU MD Accession Number [id number] CPT4 Codes 33629 () Reason For Exam gallstones,abd pain Report [...] M Transcribed Date and Time: 09/16/2018 6:06 [place] Magnesiumon 09-16-2018 Magnesium [Mass/Vol] 1.7 mg/dL 1.6 - 2 .3 mg/dL [place] Test Performed by [facility], [address] [place], [place] [id number] [place] [address] Troponinon 09-16-2018 Troponin I.cardiac [Mass/Vol] ng/mL 0 - 0.034 ng/mL [place] Comment on above: < 0.034 = negative 0.034 0.120 = indeterminate > 0.120 = positive Test Performed by [facility], [address], [place], [place] [address] [place] CBC Auto Differentialon 08-0 Absolute Baso # 0.1 10*3/uL 0 - 0.2 10*3/uL [place] Absolute Neut # 5.9 10*3/uL 1.8 - 7 10*3/uL [place] Basophils/100 WBC (Bld) 1.1 % 0 - 2 % [place] Eosinophils (Bld) [#/Vol] 0.3 10*3/uL 0 - 0.5 10*3/uL [place] Eosinophils/100 WBC (Bld) 3.2 % 1 - 6 % [place] Erythrocyte distribution width (RBC) [Ratio] 17.4 % High 11.5 - 14.5 % [place] Granulocytes/100 WBC (Bld) 67.0 % 40 - 80 % [place] Hematocrit (Bld) [Volume fraction] 36.5 % 35 - 47 % [place] Hemoglobin (Bld) [Mass/Vol] 12.0 g/dL 11.7 - 16 g/dL [place] Interpretation and review of laboratory results Abnormal [place] Lymphocytes (Bld) [#/Vol] 2.0 10*3/uL 1 - 4.3 10*3/uL [place] Lymphocytes/100 WBC (Bld) 22.6 % 20 - 40 % [place] MCH (RBC) [Entitic mass] 28.3 pg 26 - 34 pg [place] MCHC (RBC) [Mass/Vol] 32.9 % 32 - 36 % [place] MCV (RBC) [Entitic vol] 85.8 fL 79 - 98 fL [place] Monocytes (Bld) [#/Vol] 0.5 10*3/uL 0 - 0.8 10*3/uL [place] Monocytes/100 WBC (Bld) 6.1 % 2 - 10 % [place] Platelet mean volume (Bld) [Entitic vol] 9.7 fL 7.4 - 10.4 fL [place] Platelets (Bld) [#/Vol] 275 10*3/uL 140 - 440 10*3/uL [place] RBC (Bld) [#/Vol] 4.25 10*6/uL 3.8 - 5.2 10*6/uL [place] WBC (Bld) [#/Vol] 8.8 10*3/uL 3.6 - 10.7 10*3/uL [place] Test Performed by [facility], [address], [place], [place] [address] [place] Comprehensive Metabolic Pane keely 09-15-2018 Albumin [Mass/Vol] 4.1 g/dL 3.5 - 5 g/dL [place] ALP [Catalytic activity/Vol] 170 U/L High 38 - 126 U/L [place] ALT [Catalytic activity/Vol] 191 U/L High 13 - 69 U/L [place] Anion gap [Moles/Vol] 6 mmol/L [place] AST [Catalytic activity/Vol] 216 U/L High 15 - 46 U/L [place] Bilirubin Ql (U) 0.9 mg/dL 0.2 - 1.3 mg/dL [place] Calcium [Mass/Vol] 9.2 mg/dL 8.4 - 10. 4 mg/dL [place] Chloride [Moles/Vol] 100 mmol/L 98 - 10 7 mmol/L [place] CO2 [Moles/Vol] 33 mmol/L High 22 - 30 mmol/L [place] Creatinine [Mass/Vol] 0.83 mg/dL 0.52 - 1.25 mg/dL [place] EGFR IF NonAfrican Moroccan >60.0 >60 mL/min [place] Comment on above: Source- MDRD equatio n with creatinine calibration to IDMS(NKDEP) eGFR not recommended for drug dose adjustment GFR/1.73 sq M predicted among blacks MDRD (S/P/Bld) [Vol rate/Area] mL/min/{1.73_m2} >60 mL/min [place] Glucose [Mass/Vol] 111 mg/dL High 70 - 100 mg/dL [place] Interpretation and review of laboratory results Abnormal [place] Potassium [Moles/Vol] 3.4 mmol/L Low 3.5 - 5.1 mmol/L [place] Protein [Mass/Vol] 7.5 g/dL 6.3 - 8.2 g/dL [place] Sodium [Moles/Vol] 139 mmol/L 135 - 145 mmol/L [place] Urea nitrogen [Mass/Vol] 13 mg/dL 7 - 20 mg/dL [place] Test Performed by [facility], [address] [place], [place] [address] [place] Hepatitis Panel, Acuteon HAV IgM IA Qn (S) NOT DETECTED Not-Detect ed [place], [place] Hep B Core Ab, IgM NOT DETECTED Not-Detec jae [place] Hepatitis B Surface Ag NOT DETECTED Not-D etected [place] Hepatitis C Ab NOT DETECTED Not-Detected [place] Comment on above: Patients with DETECT ED Hepatitis C Ab results should have a new specimen submitted for supplemental testing with a Hepatitis C Quantitative RNA assay (viral load), if clinically indicated. Test Performed by [facility], [address] [place] [address] [place] HAV IgM IA Qn (S) NOT DETECTED Not-Detect ed [place] Hep B Core Ab, IgM NOT DETECTED Not-Detec jae [place] Hepatitis B Surface Ag NOT DETECTED Not-D etected [place] Hepatitis C Ab NOT DETECTED Not-Detected [place] Comment on above: Patients with DETECT ED Hepatitis C Ab results should have a new specimen submitted for supplemental testing with a Hepatitis C Quantitative RNA assay (viral load), if clinically indicated. Test Performed by [facility], [address] [place] [address] [place] PROCALCITONINon 09-15-2018 Procalcitonin <0.10 <0.10 ng/mL [place] Sodium [Moles/Vol] See Below [place], [place] Comment on above: PCT <0.50 = Low risk of severe sepsis and/or septic shock. PCT >2.00 = High risk of severe sepsis and/or septic shock. Test Performed by [facility], [address] [place] [address] [place] Troponinon 09-15-2018 Troponin I.cardiac [Mass/Vol] 0.012 ng/mL 0 - 0.034 ng/mL [place] Comment on above: < 0.034 = negative 0.034 0.120 = indeterminate > 0.120 = positive Test Performed by [facility], [address] Troponin I.cardiac [Mass/Vol] ng/mL 0 - 0.034 ng/mL [place] Comment on above: < 0.034 = negative 0.034 0.120 = indeterminate > 0.120 = positive Test Performed by [facility], [address] Troponin I.cardiac [Mass/Vol] ng/mL 0 - 0.034 ng/mL [place] Comment on above: < 0.034 = negative 0.034 0.120 = indeterminate > 0.120 = positive Test Performed by [facility], [address] US ABDOMEN LIMITEDon 019 Patient Name: PREMA VILLALPANDO ---Ultrasound--- Exam Date/Time 09/15/2018 16:42:00 EDT Exam US Abdomen Limited Ordering Physician DO MORTON LISA Accession Number [id number] CPT4 Codes 33746 () Reason For Exam elevated liver function [...] RISA Transcribed Date and Time: 09/15/2018 6:24 [place], [facility] Incoming Radiology Results From [facility] - 09/15/2018 6:24 PM EDT Patient Name: PREMA VILLALPANDO ---Ultrasound--- Exam Date/Time 09/15/2018 16:42:00 EDT Exam US Abdomen Limited Ordering Physician DO MORTON LISA Accession Number [id number] CPT4 Codes 43316 () Reason For Exam elevated liver function [...] RISA Transcribed Date and Time: 09/15/2018 6:24 [place] Urinalysison 09-15-2018 Appearance (U) Clear [place] Comment on above: Reference Range: Jonathan ar Bilirubin Urine Negative mg/dL [place] Comment on above: Reference Range: Neg ative Color (U) Light-Yellow [place] Comment on above: Reference Range: Lt. Yellow Glucose, Ur Normal mg/dL [place] Comment on above: Reference Range: Nor mal (<70) Ketones Ql (U) Negative mg/dL [place] Comment on above: Reference Range: Neg ative LEUKOCYTES, UA Negative Xavier/uL [place] Comment on above: Reference Range: Neg ative Nitrite, Urine Negative [place] Comment on above: Reference Range: Neg ative Occult Blood,Urine Negative mg/dL [place] Comment on above: Reference Range: Neg ative pH (U) 6.5 [pH] [place] Protein (U) [Mass/Vol] Negative mg/dL [place] Comment on above: Reference Range: Neg ative Specific [place], Urine 1.006 [place] Urobilinogen, Urine Normal mg/dL [place] Comment on above: Reference Range: Nor mal (0-1) Test Performed by [facility], [address], [place], [place] [address] [place] XR CHEST STANDARD (2 VW)on 0 09-15-2018 [facility]15/2018 5:37 PM EDT Patient Name: PREMA VILLALPANDO ---Diagnostic Radiology--- Exam Date/Time 09/15/2018 15:22:39 EDT Exam CR Chest PA/LAT Ordering Physician DO MORTON LISA Accession Number [id number] CPT4 Codes 81224 () Reason For Exam elevated wbc Report [...] RISA Transcribed Date and Time: 09/15/2018 5:37 [place] Patient Name: PREMA VILLALPANDO ---Diagnostic Radiology--- Exam Date/Time 09/15/2018 15:22:39 EDT Exam CR Chest PA/LAT Ordering Physician DO MORTON LISA Accession Number [id number] CPT4 Codes 10528 () Reason For Exam elevated wbc Report [...] RISA Transcribed Date and Time: 09/15/2018 5:37 [place] Vital Signs Date Time Vital Sign Value Performing Clinician Facility 08-27-2024 10:39-0400 Body height 149.[address] Mita Morton DO Work Phone: [facility] 08-18-2024 14:34-0400 Body height 152.4 cm Toni Bey MD Work Phone: [facility] 08-18-2024 14:34-0400 Body mass index (BMI) [Ratio] 20.51 kg/m2 Toni Bey MD Work Phone: [facility] 08-18-2024 14:34-0400 Body weight 47.63 kg Toni Bey MD Work Phone: [facility] 08-18-2024 14:34-0400 Diastolic blood pressure 78 mm[Hg] Toni Bey MD Work Phone: [facility] 08-18-2024 14:34-0400 Heart rate 87 /min Toni Bey MD Work Phone: [facility] 08-18-2024 14:34-0400 SaO2% (BldA) [Mass fraction] 97 % Toni Bey MD Work Phone: [facility] 08-18-2024 14:34-0400 Systolic blood pressure 128 mm[Hg] Toni Bey MD Work Phone: [facility] 08-18-2023 11:05-0400 Body height 152.4 cm Toni Bey MD Work Phone: [facility] 08-18-2023 11:05-0400 Body mass index (BMI) [Ratio] 20.15 kg/m2 Toni Bey MD Work Phone: [facility] 08-18-2023 11:05-0400 Body weight 46.81 kg Toni Bey MD Work Phone: [facility] 08-18-2023 11:05-0400 Diastolic blood pressure 56 mm[Hg] Toni Bey MD Work Phone: [facility] 08-18-2023 11:05-0400 Heart rate 62 /min Toni Bey MD Work Phone: [facility] 08-18-2023 11:05-0400 Respiratory rate 16 /min Toni Bey MD Work Phone: [facility] 08-18-2023 11:05-0400 SaO2% (BldA) [Mass fraction] 97 % Toni Bey MD Work Phone: [facility] 08-18-2023 11:05-0400 Systolic blood pressure 106 mm[Hg] Toni Bey MD Work Phone: [facility] 04-04-2023 11:16-0500 Body temperature 97.1 [degF] Dr. Mita Morton Work Phone: [facility] 04-04-2023 11:16-0500 Diastolic blood pressure 56 mm[Hg] Dr. Mita Morton Work Phone: [facility] 04-04-2023 11:16-0500 Heart rate 68 /min Dr. Mita Morton Work Phone: [facility] 04-04-2023 11:16-0500 Respiratory rate 16 /min Dr. Mita Morton Work Phone: [facility] 04-04-2023 11:16-0500 SaO2% (BldA) [Mass fraction] 98 % Dr. Mita Morton Work Phone: [facility] 04-04-2023 11:16-0500 Systolic blood pressure 134 mm[Hg] Dr. Mita Morton Work Phone: [facility] 04-04-2023 10:15-0500 Body height 152.[address] Mita Morton Work Phone: [facility] 04-04-2023 10:15-0500 Body mass index (BMI) [Ratio] 20.3 kg/m2 Dr. Mita Morton Work Phone: [facility] 04-04-2023 10:15-0500 Body weight 47.[address] Mita Morton Work Phone: [facility] 01-04-2023 12:48-0500 Body temperature 98.4 [degF] Dr. Mita Morton Work Phone: [facility] 01-04-2023 12:48-0500 Diastolic blood pressure 55 mm[Hg] Dr. Mita Morton Work Phone: [facility] 01-04-2023 12:48-0500 Heart rate 81 /min Dr. Mita Morton Work Phone: [facility] 01-04-2023 12:48-0500 Respiratory rate 16 /min Dr. Mita Morton Work Phone: [facility] 01-04-2023 12:48-0500 SaO2% (BldA) [Mass fraction] 98 % Dr. Mita Morton Work Phone: [facility] 01-04-2023 12:48-0500 Systolic blood pressure 115 mm[Hg] Dr. Mita Morton Work Phone: [facility] 01-04-2023 11:46-0500 Body height 152.[address] Mita Morton Work Phone: [facility] 01-04-2023 11:46-0500 Body mass index (BMI) [Ratio] 19.5 kg/m2 Dr. Mita Morton Work Phone: [facility] 01-04-2023 11:46-0500 Body weight 45.[address] Mita Morton Work Phone: [facility] 08-25-2022 10:12-0400 Body height 152.4 cm Toni Bey MD Work Phone: [facility] [employer] 08-25-2022 10:12-0400 Body mass index (BMI) [Ratio] 19.65 kg/m2 Toni Bey MD Work Phone: [facility] [employer] 08-25-2022 10:12-0400 Body weight 45.63 kg Toni Bey MD Work Phone: [facility] [employer] 08-25-2022 10:12-0400 Diastolic blood pressure 60 mm[Hg] Toni Bey MD Work Phone: [facility] [employer] 08-25-2022 10:12-0400 Heart rate 68 /min Toni Bey MD Work Phone: [facility] [employer] 08-25-2022 10:12-0400 Respiratory rate 16 /min Toni Bey MD Work Phone: [facility] [employer] 08-25-2022 10:12-0400 SaO2% (BldA) [Mass fraction] 95 % Toni Bey MD Work Phone: [facility] [employer] 08-25-2022 10:12-0400 Systolic blood pressure 110 mm[Hg] Toni Bey MD Work Phone: [facility] [employer] 06-16-2022 19:58-0400 Body temperature 97.39 [degF] Eric Cintron MD Work Phone: [facility] [employer] 06-16-2022 19:58-0400 Diastolic blood pressure 61 mm[Hg] Eric Cintron MD Work Phone: [facility] [employer] 06-16-2022 19:58-0400 Heart rate 77 /min Eric Cintron MD Work Phone: [facility] [employer] 06-16-2022 19:58-0400 Respiratory rate 18 /min Eric Cintron MD Work Phone: [facility] [employer] 06-16-2022 19:58-0400 SaO2% (BldA) [Mass fraction] 97 % Eric Cintron MD Work Phone: [facility] [employer] 06-16-2022 19:58-0400 Systolic blood pressure 123 mm[Hg] Eric Cintron MD Work Phone: [facility] [employer] 06-01-2022 23:41-0400 Diastolic blood pressure 59 mm[Hg] Dr. Mita Morton Work Phone: [facility] 06-01-2022 23:41-0400 Heart rate 14 /min Dr. Mita Morton Work Phone: [facility] 06-01-2022 23:41-0400 Respiratory rate 68 /min Dr. Mita Morton Work Phone: [facility] 06-01-2022 23:41-0400 Systolic blood pressure 124 mm[Hg] Dr. Mita Morton Work Phone: [facility] 06-01-2022 23:07-0400 SaO2% (BldA) [Mass fraction] 96 % Dr. Mita Morton Work Phone: [facility] 06-01-2022 20:32-0400 Body mass index (BMI) [Ratio] 19.4 kg/m2 Dr. Mita Morton Work Phone: [facility] 06-01-2022 20:32-0400 Body weight 45.[address] Mita Morton Work Phone: [facility] 06-01-2022 19:08-0400 Body height 152.[address] Mita Morton Work Phone: [facility] 06-01-2022 19:08-0400 Body temperature 98 [degF] Dr. Mita Morton Work Phone: [facility] 05-13-2022 14:19-0400 Body temperature 98.5 [degF] Dr. Mita Morton Work Phone: [facility] 05-13-2022 14:19-0400 Diastolic blood pressure 57 mm[Hg] Dr. Mita Morton Work Phone: [facility] 05-13-2022 14:19-0400 Heart rate 64 /min Dr. Mita Morton Work Phone: [facility] 05-13-2022 14:19-0400 Respiratory rate 16 /min Dr. Mita Morton Work Phone: [facility] 05-13-2022 14:19-0400 SaO2% (BldA) [Mass fraction] 98 % Dr. Mita Morton Work Phone: [facility] 05-13-2022 14:19-0400 Systolic blood pressure 120 mm[Hg] Dr. Mita Morton Work Phone: [facility] 05-12-2022 14:31-0400 Body height 149.[address] Mita Morton Work Phone: [facility] 05-12-2022 14:31-0400 Body weight 44.[address] Mita Morton Work Phone: [facility] 05-12-2022 12:18-0400 Body mass index (BMI) [Ratio] 19.7 kg/m2 Dr. Mita Morton Work Phone: [facility] 02-23-2022 08:20-0500 Diastolic blood pressure 60 mm[Hg] Lalitha Powell MD Work Phone: [facility] 02-23-2022 08:20-0500 Heart rate 84 /min Lalitha Powell MD Work Phone: [facility] 02-23-2022 08:20-0500 Respiratory rate 18 /min Lalitha Powell MD Work Phone: [facility] 02-23-2022 08:20-0500 SaO2% (BldA) [Mass fraction] 100 % Lalitha Powell MD Work Phone: [facility] 02-23-2022 08:20-0500 Systolic blood pressure 113 mm[Hg] Lalitha Powell MD Work Phone: [facility] 02-23-2022 07:31-0500 Body height 152.4 cm Lalitha Powell MD Work Phone: [facility] 02-23-2022 07:31-0500 Body mass index (BMI) [Ratio] 18.94 kg/m2 Lalitha Powell MD Work Phone: [employer] 02-23-2022 07:31-0500 Body temperature 97.3 [degF] Lalitha Powell MD Work Phone: [employer] 02-23-2022 07:31-0500 Body weight 44 kg Lalitha Powell MD Work Phone: [employer] 06-04-2020 11:08-0400 Diastolic blood pressure 50 mm[Hg] Betsy Cundra PA-C Work Phone: [facility] Work Phone: 06-04-2020 11:08-0400 Heart rate 73 /min Betsy Cundra PA-C Work Phone: [facility] Work Phone: 06-04-2020 11:08-0400 Respiratory rate 15 /min Betsy Cundra PA-C Work Phone: [facility] Work Phone: 06-04-2020 11:08-0400 SaO2% (BldA) [Mass fraction] 100 % Betsy Cundra PA-C Work Phone: [facility] Work Phone: 06-04-2020 11:08-0400 Systolic blood pressure 103 mm[Hg] Betsy Cundra PA-C Work Phone: [facility] Work Phone: 11-09-2019 11:21-0400 BP Diastolic 62 mm[Hg] [facility] [place] 11-09-2019 11:21-0400 BP Systolic 121 mm[Hg] Zoe [employer] [facility] , [place] 11-09-2019 11:21-0400 Pulse (Heart Rate) 81 /min [facility], [place] 11-09-2019 11:21-0400 Pulse Oximetry 100 % Zoe [employer] [facility] , [place] 11-09-2019 11:21-0400 Respiratory Rate 16 /min [facility], [place] 03-07-2019 12:11-0500 Diastolic blood pressure 65 mm[Hg] [...] Phone: 09-21-2018 14:16-0400 Body Temperature 97.59 [degF] [facility], [place] 09-21-2018 14:16-0400 BP Diastolic 74 mm[Hg] [facility] , [place] 09-21-2018 14:16-0400 BP Systolic 141 mm[Hg] [facility] , [place] 09-21-2018 14:16-0400 Pulse (Heart Rate) 74 /min [facility], [place] 09-21-2018 14:16-0400 Pulse Oximetry 98 % [facility] , [place] 09-21-2018 14:16-0400 Respiratory Rate 16 /min [facility], [place] 09-17-2018 16:01-0400 Height 160 cm Mitatyrone Morton [place], [place] 09-15-2018 13:00-0400 BMI (Body Mass Index) 21.72 kg/m2 Mita Moses [facility], [place] 09-15-2018 13:00-0400 Body weight 55.61 kg [place] Encounters Encounter Date Encounter Type Care Provider Facility Start: 10-05-2024 ambulatory Roque Herrera Facility :[facility] Start: 09-14-2024 ambulatory Anabel WALSH Facility:[facility] Start: 09-14-2024 [facility] Start: 08-27-2024 End: 08-27-[address] 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 Mita Morton DO Work Phone: [facility] G[facility] Start: 08-18-2024 [facility] Start: 08-17-2024 ambulatory Mita Morton Facility :[facility] Start: 08-09-2024 ambulatory Anabel WALSH Facility:[facility] Start: 08-09-2024 Registered Referred Anabel CabralSaul Irvin Start: 08-08-2024 End: 08-08-[address] Mita Morton DO Work Phone: [facility] Start: 08-08-2024 End: 08-08-[address] Anabel Duvall MD -[facility] Work Phone: Start: 07-25-2024 End: 07-25-[address] Mita Morton DO Work Phone: [facility] Start: 07-25-2024 End: 07-25-2024 Patient encounter procedure Fallon Mcclendon JERKER- -[facility] Work Phone: Start: 07-17-2024 End: 07-17-[address] Mita Morton DO Work Phone: [facility] Start: 07-17-2024 End: 07-17-2024 Patient encounter procedure Sahil Wheeler Kelly JERKER-[facility] Work Phone: Start: 06-20-2024 End: 06-20-[address] Mita Morton DO Work Phone: [facility] Start: 06-20-2024 End: 06-20-[address] Anabel Duvall MD -[facility] Work Phone: Start: 06-12-2024 End: 06-12-2024 Departed Referred Anabel CabralSaul Bryan Start: 06-12-2024 Registered Referred Anabel CabralSaul Bryan Start: 06-12-2024 End: 06-12-2024 ambulatory Mita Morton Facility:[facility] Start: 05-09-2024 End: 05-09-[address] Mita Morton DO Work Phone: [facility] Work Phone: Start: 05-09-2024 End: 05-09-[address] Anabel Duvall MD -[facility] Work Phone: Start: 04-10-2024 End: 04-10-2024 ambulatory Mita M Esterle Facility:[facility] Start: 04-10-2024 End: 04-10-2024 Patient encounter procedure Fallon Mcclendon JERKER-C -[facility] Work Phone: Start: 03-21-2024 End: 03-21-2024 ambulatory Mita M Esterle Facility:[facility] Start: 03-21-2024 End: 03-21-[address] Anabel Duvall MD -[facility] Work Phone: Start: 03-16-2024 ambulatory Mita M Esterle Facility :[facility] Start: 03-16-2024 Registered Referred Anabel Duvall MD [facility] Start: 02-10-2024 End: 02-10-2024 ambulatory Mita M Esterle Facility:[facility] Start: 01-25-2024 End: 01-25-2024 ambulatory Mita M Esterle Facility:[facility] Start: 12-20-2023 End: 12-20-2023 Subsequent hospital visit by physician Mita Morton DO Work Phone: [facility] MRI Comment on above: Other specified dise ases of liver Start: 12-20-2023 End: 12-20-2023 ambulatory MITA ESTERLE [facility] Start: 12-16-2023 End: 12-17-2023 ambulatory Mita M Esterle Facility:[facility] Start: 12-15-2023 End: 12-15-2023 ambulatory Mita M Esterle Facility:[facility] Start: 12-09-2023 End: 12-09-2023 ambulatory Mita M Esterle Facility:[facility] Start: 12-03-2023 End: 12-03-2023 ambulatory Fallon Mcclendon Facility:[facility] Start: 12-01-2023 End: 03-01-2024 Transcribe Orders Mita M Esterle DO Work Phone: [facility] Central Scheduling Comment on above: Other specified dise ases of liver (Primary Dx) Start: 11-22-2023 End: 11-22-2023 ambulatory Mita Morton Facility:[facility] Start: 11-22-2023 End: 11-22-2023 ambulatory Mita Morton Facility:[facility] Start: 11-11-2023 End: 11-11-2023 ambulatory MITA MORTON [facility] Start: 11-11-2023 End: 11-11-2023 Subsequent hospital visit by physician Mita Morton DO Work Phone: [facility] Comment on above: Other specified abno rmal findings of blood chemistry Start: 10-26-2023 End: 01-25-2024 Transcribe Orders Mita Janie Praveen DO Work Phone: [facility] [employer] Scheduling Comment on above: Other specified abno rmal findings of blood chemistry (Primary Dx) Start: 08-18-2023 End: 08-18-2023 Office outpatient visit 25 minutes Toni Bey MD Work Phone: [facility] Cardiology Comment on above: 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); Persistent atrial fibrillation (HCC); Mixed hyperlipidemia; Vascular dementia, unspecified dementia severity, unspecified whether behavioral, psychotic, or mood disturbance or anxiety (HCC) Start: 07-23-2023 End: 07-23-2023 Telephone encounter Toni Bey MD Work Phone: [facility] Cardiology Comment on above: Cardiac Clearance Start: 07-20-2023 ambulatory Sharmila Connell RN [facility] Clinical Communication Start: 07-20-2023 Patient encounter procedure Sharmila Connell RN [facility] Clinical Communication Start: 05-11-2023 End: 08-10-2023 Transcribe Orders Brittany Mitchell [employer] - [employer] Work Phone: [facility] Outaptient Lab Comment on above: Dorsalgia, unspecifi ed (Primary Dx); Unspecified urinary incontinence Start: 04-10-2023 Refill Yeny benjamin [employer] - [employer]IDE Work Phone: [facility] Cardiology Start: 04-04-2023 End: 04-04-2023 Emergency department patient visit Dr. Mita Morton Work Phone: [facility]-Emergency Department Work Phone: Start: 04-04-2023 End: 04-04-2023 Patient encounter procedure Billie Reid KALYN.C[employer] PLANNING AIDE Work Phone: [facility] Comment on above: Injury of head, init ial encounter (Primary Dx) Start: 03-04-2023 End: 03-04-[address] Mita Morton Work Phone: [facility] Gastroenterology Work Phone: Start: 01-04-2023 Non-patient / Non-visit Dr. Joana Morton Work Phone: [facility] Start: 01-04-2023 End: 01-04-2023 Admission to same day surgery center Dr. Mita Morton Work Phone: [facility]-Endoscopy Work Phone: Start: 01-04-2023 End: 01-04-[address] Mita Morton Work Phone: [facility] Work Phone: Start: 12-09-2022 Telephone encounter Toni sánchez MD Work Phone: [facility] Cardiology Comment on above: Cardiac Clearance Start: 10-28-2022 End: 10-28-2022 Subsequent hospital visit by physician Mita Morton DO Work Phone: [facility] Comment on above: Other specified abno rmal findings of blood chemistry Start: 10-23-2022 Transcribe Orders Mita Myers Work Phone: [facility] Central Scheduling Comment on above: Other specified abno rmal findings of blood chemistry (Primary Dx) Start: 10-21-2022 End: 10-21-[address] Mita Morton Work Phone: [facility] Work Phone: Start: 10-21-2022 End: 10-21-[address] Mita Morton Work Phone: [facility]-Physical Therapy Work Phone: Start: 10-10-2022 Refill Yeny Waldron ak [employer] MANAGER - [employer] AIDE Work Phone: [facility] Cardiology Start: 09-24-2022 End: 09-24-2022 ambulatory Cheryl GIRON-C Work Phone: [facility] Laboratory Comment on above: Arrived Hyperlipidemia, unsp ecified (Primary Dx) Start: 09-14-2022 Transcribe Orders Toni Bey MD Work Phone: [facility] Laboratory Comment on above: Other persistent atr ial fibrillation (HCC) (Primary Dx) Start: 08-25-2022 End: 08-25-2022 Office outpatient visit 25 minutes Toni Bey MD Work Phone: [facility] Cardiology Comment on above: 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); Persistent atrial fibrillation (HCC); Mixed hyperlipidemia Start: 07-18-2022 Refill Toni Lou Work Phone: [facility] Cardiology Start: 07-09-[address] Mita carlos Work Phone: [facility] Start: 06-30-2022 End: 06-30-[address] Mita Morton Work Phone: [facility] Work Phone: Start: 06-26-[address] Mita carlos Work Phone: [facility] Start: 06-25-[address] Mita carlos Work Phone: [facility] Start: 06-24-2022 End: 06-24-[address] Mita Morton Work Phone: [facility] Work Phone: Start: 06-13-2022 End: 06-16-2022 Evaluation and management of inpatient Eric Cintron MD Work Phone: [facility] 2E TELEMETRY Comment on above: Anemia (Primary Dx); Hyponatremia; Hepatitis Start: 06-13-2022 End: 06-13-2022 Subsequent hospital visit by physician Mita Morton DO Work Phone: [facility] Vascular Lab Comment on above: Other specified symp toms and signs involving the circulatory and respiratory systems Start: 06-01-2022 End: 06-02-2022 Emergency department patient visit Dr. Mita Morton Work Phone: [facility]-Emergency Department Start: 05-27-2022 Transcribe Orders Mita Myers Work Phone: [facility] Central Scheduling Comment on above: Other specified symp toms and signs involving the circulatory and respiratory systems (Primary Dx) Start: 05-13-2022 Non-patient / Non-visit Dr. Joana Morton Work Phone: [facility] Start: 05-13-2022 End: 05-13-2022 Non-patient / Non-visit Dr. Mita Morton Work Phone: [facility] Inpatient Physicians Start: 05-12-2022 Non-patient / Non-visit Dr. Joana Morton Work Phone: [facility] Start: 05-12-2022 Non-patient / Non-visit Dr. Joana Morton Work Phone: [facility] Inpatient Physicians Start: 05-12-2022 End: 05-13-2022 Evaluation and management of inpatient [facility] Start: 05-12-2022 End: 05-13-[address] Mita Morton Work Phone: [facility] Work Phone: Start: 02-27-2022 Telephone encounter Gin Finn [employer]ANT MANAGER - [employer] AIDE Work Phone: [facility] Comment on above: Medication Question; Care Coordination Start: 02-23-2022 End: 02-23-2022 Subsequent hospital visit by physician Lalitha Poewll MD Work Phone: [facility] Endoscopy Comment on above: Dysphagia Start: 05-13-2021 End: 05-13-2021 Subsequent hospital visit by physician Royce Koehler DO Work Phone: [facility] Comment on above: 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) Start: 05-09-2021 End: 05-09-2021 Discharged Recurring [facility]-Physical Therapy Start: 02-10-2021 End: 02-10-2021 Discharged Recurring [facility]-Physical Therapy Start: 08-20-2020 End: 08-20-2020 Subsequent hospital visit by physician Mita Morton DO Work Phone: [facility] Comment on above: Abnormal results of liver function studies Start: 06-04-2020 End: 06-04-2020 Subsequent hospital visit by physician Betsy Reeves PA-C Work Phone: [facility] Comment on above: Left thyroid nodule Start: 05-21-2020 End: 05-21-2020 Subsequent hospital visit by physician Zoe Wyatt Work Phone: [facility] [place] Comment on above: Thyroid nodule Start: 02-07-2020 End: 02-07-2020 Subsequent hospital visit by physician Mita Morton Work Phone: [facility] Start: 11-09-2019 End: 11-09-2019 Subsequent hospital visit by physician Zoe Wyatt Work Phone: [facility] Comment on above: Thyroid nodule Start: 10-18-2019 End: 10-18-2019 Subsequent hospital visit by physician Mita Morton Work Phone: [facility] Comment on above: Nontoxic single thyr oid nodule Start: 08-21-2019 End: 08-21-2019 Subsequent hospital visit by physician Yeny Huntley Work Phone: [facility] Laboratory Comment on above: Coronary artery dise ase involving [place] coronary artery of [place] heart without angina pectoris; Dyslipidemia Start: 04-04-2019 End: 04-04-2019 Subsequent hospital visit by physician Mita Morton Work Phone: [facility] Comment on above: Arrived Start: 03-31-2019 End: 03-31-2019 Subsequent hospital visit by physician Mita Morton Work Phone: [facility] Laboratory Start: 03-07-2019 End: 03-07-2019 Subsequent hospital [...] 09-21-2018 Evaluation and management of inpatient Mita Morton Work Phone: [facility] 4S TELEMETRY Procedures Date Procedure Procedure Detail Performing Clinician Start: 08-18-2024 Ecg routine ecg w/least 12 lds w/i&r Toni Bey MD Work Phone: Start: 08-17-2024 Urnls dip stick/tablet reagent auto microscopy Dr. Mita Morton DO Work Phone: Start: 08-17-[address] Mita Morton DO Work Phone: Start: 03-16-2024 Measurement of renal function Dr. Mita carlos DO Work Phone: Comment on above: GFR Calc Start: 11-11-2023 Us abdominal real time w/image limited Mita Morton DO Work Phone: Start: 08-18-2023 Ecg routine ecg w/least 12 lds w/i&r Toni Bey MD Work Phone: Start: 01-04-[address] Mita cárdenas Work Phone: Start: 09-24-2022 Comprehensive metabolic panel Cheryl Spi ros PA-C Work Phone: Start: 09-24-2022 Lipid panel Cheryl John PA-C Work Phone: Start: 09-24-2022 Lipid 1996 panel - Serum or Plasma Shamrila Connell RN Start: 09-14-2022 Basic metabolic panel calcium total Toni Bey MD Work Phone: Start: 08-25-2022 Ecg routine ecg w/least 12 lds w/i&r Toni Bey MD Work Phone: Start: 06-16-2022 SARS-CoV-2 (COVID-19) Ag [Presence] in Respiratory specimen by Rapid immunoassay Mita Morton DO Work Phone: Start: 06-16-2022 Comprehensive [...] limited Mita Morton DO Work Phone: Start: 06-04-2020 Us guidance [...] & neck real time imge docm Mita Lima Esterle Work Phone: Start: 08-21-2019 Basic metabolic panel calcium total Yenyyusuf Huntley Work Phone: Start: 08-21-2019 Blood count complete automated Yeny Mirna Huntley Work Phone: Start: 08-21-2019 Hepatic function panel Yeny Mirna Huntley Work Phone: Start: 04-04-2019 CT ABDOMEN PELVIS W CONTRAST Mita Janie Sandi rle Work Phone: Start: 04-04-2019 Ct thorax w/contrast material Mita Janie Est erle Work Phone: Start: 03-31-2019 Creatinine blood Mita M Esterle Work Phone: Start: 03-07-2019 [facility] ENDOSCOPY REPORT [...] Phone: Comment on above: Test Performed by [facility], [address] [place] [id number] Start: 02-15-2019 Cmbn ndsc cathj biliary&pncrtc ductal [...] Start: 02-13-2019 Assay of magnesium Gem A Beverley DO Work Phone: Start: 02-13-2019 BASIC METABOLIC PANEL W/ REFLEX TO MG FOR LOW K Gem A Nettleton DO Work Phone: Start: 02-13-2019 Hepatic function panel Gem A Loomi s DO Work Phone: Start: 02-12-2019 ADD ON LAB TEST Gem A Beverley DO Work Phone: Start: 02-12-2019 Bilirubin direct Sonny Peres MD Work Phone: Start: 02-11-2019 Mri abdomen w/o contrast material Elisab eth A Nettleton DO Work Phone: Start: 02-11-2019 End: 02-11-2019 ADD ON LAB TEST Sonny Montague MD Work Phone: Start: 02-11-2019 PROTIME/INR & PTT Gem A Beverley DO Work Phone: Start: 02-11-2019 Us abdominal real time w/image limited Yusuf Andino MD Work Phone: Start: 02-11-2019 Basic metabolic panel calcium total Sahil GIRON Work Phone: Start: 02-11-2019 Hepatic function panel Sahil Ribeiro P A Work Phone: Start: 02-11-2019 Ecg routine ecg w/least 12 lds w/i&r Sahil GIRON Work Phone: Start: 09-21-2018 Colonoscopy 3m [...] Phone: Start: 09-16-2018 Assay of magnesium Mita Lima Esterle Work Phone: Start: 09-16-2018 Assay of troponin quantitative Mita Rich terle Work Phone: Start: 09-16-2018 Blood count complete auto&auto difrntl wbc Mita Janie Esterle Work Phone: Start: 09-16-2018 Blood count complete automated Mita Rich terle Work Phone: Start: 09-15-2018 Assay of troponin quantitative Mita Rich terle Work Phone: Start: 09-15-2018 Culture bacterial quanttative colony count urine Mita Morton Work Phone: Start: 09-15-2018 Urnls dip stick/tablet rgnt auto w/o microscopy Mita Morton Work Phone: Start: 09-15-2018 Acute hepatitis panel Siobhan Constantinojeovanysmitha Work Phone: Start: 09-15-2018 Culture bacterial blood aerobic w/id isolates Mita Lima Esterle Work Phone: Start: 09-15-2018 Us abdominal real time w/image limited Mita Lima Esterle Work Phone: Start: 09-15-2018 Assay of troponin quantitative Mita Lima Es terle Work Phone: Start: 09-15-2018 Culture bacterial blood aerobic w/id isolates Mita M Esterle Work Phone: Start: 09-15-2018 Radiologic exam chest 2 views Mita Lima Est erle Work Phone: Start: 09-15-2018 Acute hepatitis panel Mita M Esterle Work Phone: Start: 09-15-2018 Assay of troponin quantitative Mita M Es terle Work Phone: Start: 09-15-2018 Blood count complete auto&auto difrntl wbc Mita M Esterle Work Phone: Start: 09-15-2018 Comprehensive metabolic panel Mita M Est erle Work Phone: Start: 09-15-2018 Procalcitonin (pct) Mita Morton Work Phone: History of placement of [...] DTaP/Tdap/Td vaccine (2 - Td or Tdap) [facility] Start: 12-01-2029 DTaP/Tdap/Td vaccine (2 - Td) DTaP/Tdap/Td vaccine (2 - Td) [facility] Work Phone: Start: 12-01-2029 DTaP/Tdap/Td Vaccines (2 - Td or Tdap) DTaP/Tdap/Td Vaccines (2 - Td or Tdap) [facility] Start: 09-25-2027 Lipid panel Lipid Panel [facility] Start: 09-24-2025 Diabetes Screening Diabetes Screening [facility] Start: 08-20-2025 End: 08-20-2025 Patient encounter procedure 08/20/2025 2:00 PM EDT Office Visit [facility] [address] [id number] Toni Bey MD [address] [address] [facility] Start: 10-09-2024 Influenza vaccination Influenza Vaccine (#1) [facility] Start: 08-18-2024 End: 08-18-2024 Patient encounter procedure [facility] Medical [facility] Start: 08-17-2024 [facility] Start: 08-17-2024 Bacteria identified in Urine by Culture Urine Culture [facility] Start: 10-10-2023 COVID-19 Vaccine (4 - 2023-24 season) COVID-19 Vaccine () [facility] Start: 10-10-2023 COVID-19 Vaccine ( season) COVID-19 Vaccine () [facility] Start: 10-10-2023 Influenza vaccination [facility] Start: 09-25-2023 Creatinine measurement Creatinine Level [facility] [facility] Start: 09-25-2023 Diabetes: Estimated Glomerular Filtration Rate for Kidney Health Diabetes: Estimated Glomerular Filtration Rate for Kidney Health [facility] Start: 09-25-2023 Potassium measurement Potassium Level [facility] Start: 08-18-2023 End: 08-18-2023 Patient encounter procedure 08/18/2023 11:00 AM EDT Office Visit [facility] Cardiology [address] [place] [address] Toni Bey MD [address] [facility] [address] [place] [address] [facility] Start: 08-06-2023 Lipid screen Lipid screen [place], [place] Start: 06-04-2023 Medicare Annual Wellness (AWV) Medicare Annual Wellness (AWV) [facility] Start: 04-04-2023 [facility] Start: 02-08-2023 Advance Directive Discussion Advance Directive Discussion [facility] Start: 02-08-2023 Depression Assessment Depression Assessment [facility] Start: 01-04-2023 Egd insert guide wire dilator passage esophagus EGD GUIDE WIRE INSERTION [facility] Start: 01-04-2023 Egd transoral biopsy single/multiple EGD BIOPSY SINGLE/MULTIPLE [facility] Start: 01-04-2023 Patient discharge [facility] Start: 10-09-2022 COVID-19 Vaccine ( season) COVID-19 Vaccine () [facility] Start: 10-09-2022 Influenza vaccination Influenza Vaccine (#1) [facility] Start: 08-25-2022 End: 08-25-2022 Patient encounter procedure 08/25/2022 10:00 AM EDT Office Visit [facility] Cardiology [address] [place] [id number] Toni Bey MD [address] [facility] [facility] [address] [place] [address] [facility] Start: 06-01-2022 [facility] Start: 05-14-2022 Blood chemistry [facility] Start: 05-13-2022 Patient discharge [facility] Start: 05-12-2022 Catheterization of vein [facility] Start: 05-12-2022 Care regimes management [facility] Start: 05-12-2022 Notification of physician [facility] Start: 05-12-2022 [facility] Start: 05-12-2022 Egd insert guide wire dilator passage esophagus EGD GUIDE WIRE INSERTION [facility] Start: 05-12-2022 Egd transoral biopsy single/multiple EGD BIOPSY SINGLE/MULTIPLE [facility] Start: 05-12-2022 Application of intermittent pneumatic compression device [facility] Start: 05-12-2022 Ambulation without limitation [facility] Start: 05-12-2022 Assessment of risk of venous thromboembolism [facility] Start: 05-12-2022 Insertion of catheter into peripheral vein [facility] Start: 05-12-2022 Providing care according to standard [facility] Start: 05-12-2022 Referral to gastroenterology service [facility] Start: 05-12-2022 [facility] Start: 05-12-2022 Following clinical pathway protocol [facility] Start: 05-12-2022 Admission procedure [facility] Start: 05-12-2022 Patient referral to dietitian [facility] Start: 03-13-2022 End: 03-13-2022 Patient encounter procedure 03/13/2022 Office Visit Gastroenterology Gin Finn, HYDROGEN POWER PLANT MANAGER - [employer] AIDE [address] [place] [address] [facility] Start: 02-26-2022 Hemoglobin A1c measurement Diabetes: Hemoglobin A1C [facility] Start: 02-23-2022 End: 02-23-2022 Esophagogastroduodenoscopy transoral diagnostic EGD DIAGNOSTIC Dysphagia 02/23/2022 7:42 AM EST [facility] Start: 12-30-2021 Creatinine measurement Creatinine monitoring [facility] Start: 12-30-2021 Potassium monitoring Potassium monitoring [facility] Start: 11-08-2021 [address] [facility] Start: 01-10-2021 COVID-19 Vaccine (4 - Booster for Pfizer series) COVID-19 Vaccine (4 - Booster for Pfizer series) [facility] Start: 01-10-2021 COVID-19 Vaccine (4 - Pfizer series) COVID-19 Vaccine (4 - Pfizer series) [facility] Start: 10-17-2020 Statin Therapy Statin Therapy [place] Start: 10-09-2020 Influenza vaccination Flu vaccine (#1) [facility] Work Phone: Start: 08-20-2020 Creatinine measurement [facility] [place] [place] Start: 08-20-2020 Potassium monitoring Potassium monitoring [facility] [place], [place] Start: 06-10-2020 End: 06-10-2020 Patient encounter procedure 06/10/2020 Office Visit General Surgery Kiko Bowie MD [address] [place] [address] [phone] Gen Surg - [facility] Start: 05-27-2020 End: 05-27-2020 Office Visit 05/27/2020 Office Visit General Surgery Kiko Bowie MD [address] [place] [address] [phone] Gen Surg - [facility] Start: 03-31-2020 Creatinine measurement Creatinine monitoring [place], [place] Start: 03-31-2020 Creatinine monitoring [facility] [place] [facility] [place] Start: 02-18-2020 Creatinine monitoring Creatinine monitoring [facility] Work Phone: Start: 02-18-2020 Potassium monitoring Potassium monitoring [facility] Work Phone: Start: 11-25-2019 Pneumococcal Vaccine: 50+ Years (2 of 2 - PCV) Pneumococcal Vaccine: 50+ Years (2 of 2 - PCV) [facility] Start: 11-25-2019 Pneumococcal Vaccine: 65+ (2 of 2 - PCV) Pneumococcal Vaccine: 65+ (2 of 2 - PCV) [facility] Start: 11-25-2019 Pneumococcal Vaccine: 65+ Years (2 - PCV) Pneumococcal Vaccine: 65+ Years (2 - PCV) [facility] Start: 11-25-2019 Pneumococcal Vaccine: 65+ Years (2 of 2 - PCV) Pneumococcal Vaccine: 65+ Years (2 of 2 - PCV) [facility] Start: 10-10-2019 Influenza vaccination Flu vaccine (#1) [place] Start: 09-22-2019 Creatinine monitoring Creatinine monitoring [place], [place] Start: 09-22-2019 Potassium monitoring Potassium monitoring [place] Start: 08-06-2019 Lipid panel Lipid screen [place] Start: 08-06-2019 Lipid screen Lipid screen [facility] [employer] Phone: Start: 05-25-2019 End: 05-25-2019 Office Visit 05/25/2019 Office Visit Cardiology Toni Bey MD [address] [facility] [place] [address] [phone] [facility] [place] Start: 04-04-2019 Hospital Encounter 04/04/2019 Hospital Encounter Radiology Mita Morton, DO [address] [place] [address] [phone] Start: 10-09-2018 Influenza vaccination Flu vaccine (#1) [place] Start: 10-04-2018 End: 10-04-2018 Office Visit 10/04/2018 Office Visit Cardiology Yeny Huntley, HYDROGEN POWER PLANT MANAGER - [employer] PLANNING AIDE [address] [place] [address] [phone] [facility] [place] Start: 08-05-2018 Annual Wellness Visit (AWV) Annual Wellness Visit (AWV) [facility] Start: 2017 RSV Immunization for Adults (1 - 1-dose 75+ series) RSV Immunization for Adults (1 - 1-dose 75+ series) [facility] Start: 10-16-2007 Pneumococcal 65+ years Vaccine (1 of 2 - PCV13) Pneumococcal 65+ years Vaccine (1 of 2 - PCV13) [place] Start: 2005 Annual Wellness Visit (AWV) Annual Wellness Visit (AWV) [place] Start: 2002 Hepatitis B Vaccines (1 of 3 - Risk 3-dose series) Hepatitis B Vaccines (1 of 3 - Risk 3-dose series) [facility] Start: 2002 RSV Immunization aged 60 or older (1 - 1-dose 60+ series) RSV Immunization aged 60 or older (1 - 1-dose 60+ series) [facility] Start: 1992 Colon cancer screen colonoscopy Colon cancer screen colonoscopy [place], [place] Start: 1992 Shingles Vaccine (1 of 2) Shingles Vaccine (1 of 2) [facility] Start: 1992 Shingrix Vaccine (1 of 2) Shingrix Vaccine (1 of 2) [facility] Start: 1992 Zoster Vaccines (1 of 2) Zoster Vaccines (1 of 2) [facility] Start: 1961 DTaP/Tdap/Td vaccine (1 - Tdap) DTaP/Tdap/Td vaccine (1 - Tdap) [place] Start: 1961 Hepatitis A Vaccines (1 of 2 - Risk 2-dose series) Hepatitis A Vaccines (1 of 2 - Risk 2-dose series) [facility] Start: 1961 Urine microalbumin profile DTaP,Tdap,Td Vaccine (1 - Tdap) [facility] Start: 1961 Urine screening for protein Diabetes: Urine Protein Screening [facility] Start: 1960 Diabetes: Urine Albumin-Creatinine Ratio for Kidney Health Diabetes: Urine Albumin-Creatinine Ratio for Kidney Health [facility] Start: 1960 Hepatitis C screening Hepatitis C Screening [facility] Start: 1954 Depression Monitoring Depression Monitoring [facility] Start: 1954 Depression Screen Depression Screen [facility] Start: 1954 Depression Screening Depression Screening [facility] Start: 1953 DTaP/Tdap/Td vaccine (1 - Tdap) DTaP/Tdap/Td vaccine (1 - Tdap) [facility] Work Phone: Start: 1952 Diabetic foot examination Diabetes: Foot Exam [facility] Start: 1952 Glaucoma screening Diabetes: Retinopathy Screening [facility] Start: 1952 Preventive dental service Diabetes: Dental Exam [facility] Start: 10-16-1943 Hepatitis A Vaccines (1 of 2 - Risk 2-dose series) Hepatitis A Vaccines (1 of 2 - Risk 2-dose series) [facility] Start: 1942 Echocardiography Echocardiogram [facility] Start: 1942 Hemoglobin A1c measurement Diabetes: Hemoglobin A1C [facility] Start: 1942 Hepatitis B Vaccines (1 of 3 - 3-dose series) Hepatitis B Vaccines (1 of 3 - 3-dose series) [facility] Start: 1942 Medicare Annual Wellness (AWV) Medicare Annual Wellness (AWV) [facility] Start: 1942 Screening for osteoporosis Bone Density Scan [facility] Bacteria identified in Blood by Culture Blood culture #1 - Suspected Infection Microbiology STAT 06/13/2022 2:43 PM EDT [facility] Bacteria identified in Blood by Culture Blood culture #1 - Suspected Infection Microbiology STAT 06/13/2022 3:49 PM EDT [facility] Bacteria identified in Urine by Culture Urine Culture [facility] End: 03-07-2019 Blood glucose - POCT Blood glucose - POCT Point of Care Testing Routine One Time for 1 Occurrences starting 03/07/2019 until 03/07/[address] [facility] Work Phone: Comment on above: One Time for 1 Occurrences starting 02/09 until 03/07/2019 Comprehensive metabo lic 2000 panel Comprehensive Metabolic Panel Lab Routine Daily until discontinued starting 09/17/2018, 1 completed [facility], [place] Comment on above: Daily until discontinued starting 2018, 1 completed End: 05-13-2021 CT HEAD WO CONTRAST [facility] Work Phone: Comment on above: Once for 1 Occurrences starting 05/14/19 until 05/13/2021 End: 06-13-2022 Hemoglobin.gastrointestinal.low er [Presence] in Stool by Immunoassay --1st specimen [facility] [employer] [facility] Work Phone: Comment on above: STAT (Lab) for 1 Occurrences starting until 06/13/2022 Once (Lab) for 1 Occ urrences starting 06/13/2022 until 06/13/2022 Initiate Oxygen Ther apy Protocol [facility], [place] Comment on above: Daily until discontinued starting 2018 Daily until disconti nued starting 02/11/2019 End: 12-20-2023 MR Abdomen WO [facility] Work Phone: Comment on above: Once for 1 Occurrences starting 12/20/19 24 until 12/20/2023 OUTSIDE PROCEDURE SCAN OUTSIDE P ROCEDURE SCAN Procedures Ordered: 06/13/2022 [facility] Comment on above: Ordered: 06/13/2022 OUTSIDE PROCEDURE SCAN OUTSIDE P ROCEDURE SCAN Procedures Ordered: 09/24/2022 [facility] Comment on above: Ordered: 09/24/2022 OUTSIDE PROCEDURE SCAN OUTSIDE P ROCEDURE SCAN Procedures Ordered: 10/27/2022 [facility] Comment on above: Ordered: 10/27/2022 Patient Education [facility] Work Phone: Patient referral [facility] Work Phone: End: 03-07-2019 Pulse Oximetry Spot Check Pulse Oximetry Spot Check Respiratory Care Routine One Time for 1 Occurrences starting 03/07/2019 until 03/07/[address] [facility] Work Phone: Comment on above: One Time for 1 Occurrences starting 02/09 until 03/07/2019 End: 09-21-2018 Surgical Pathology Surgical Pathology Lab Routine Once for 1 Occurrences starting 09/21/2018 until 09/21/2018 [facility], [place] Comment on above: Once for 1 Occurrences starting 09/22/19 19 until 09/21/2018 Surgical Pathology [facility], [place] End: 02-15-2019 Surgical Pathology Surgical Pathology Lab Routine Once for 1 Occurrences starting 02/15/2019 until 02/15/[address] [facility] Work Phone: Comment on above: Once for 1 Occurrences starting 02/15/19 20 until 02/15/2019 Tissue exam [facility] [employer] Work Phone: Comment on above: Release Upon Ordering for 1 Occurrences starting 02/23/2022, 1 completed Urine culture [facility] End: 10-28-2022 US Abdomen [facility] [employer] Work Phone: Comment on above: Once for 1 Occurrences starting 10/29/19 until 10/28/2022 End: 05-21-2020 US Thyroid US Thyroid Imaging Routine Thyroid nodule 1 Occurrences starting 05/21/2020 until 05/21/2020 Differential Work Phone: Comment on above: 1 Occurrences starting 05/21/2020 until 05/21/2020 US THYROID US THYROID Imagi ng Routine Thyroid nodule 05/21/2020 1:55 PM EDT Differential Work Phone: Immunizations Immunization Date Immunization Notes Care Provider [facility] 01-11-2023 influenza virus vaccine, unspecified formulation Mita Motron DO Work Phone: [facility] 12-23-2021 Influenza, high dose seasonal Dr. Mita Morton DO Work Phone: [facility] 12-23-2021 influenza, high dose seasonal, preservative-free Dr. Mita Morton Work Phone: [facility] 12-23-2021 influenza virus vaccine, unspecified formulation Toni Bey MD Work Phone: [facility] 11-15-2020 Pfizer SARS-CoV-[address] Mita Morton Work Phone: [facility] 05-03-2020 Pfizer SARS-CoV-[address] Mita Morton Work Phone: [facility] 04-09-2020 Pfizer SARS-CoV-[address] Mita Morton Work Phone: [facility] Payers Date Payer Category Payer Self-pay [id number] 2021 Medicare supplementa l policy (as second payer) MMO MEDICARE SUPPLEMENT [id number] 2021 Unknown [id number] .[id number] 2015 Unknown [id number] .[id number] 2015 Unknown [employer] [address] [id number] 2015-Present [phone] [address] [place] [address] [id number] .[id number] 2015 Unknown [id number] .7.3.671600.315 2014 Medicare MEDICARE MEDICAR E PART A AND B xxxxxxxxxxx 2014-Present [phone] [place] [address] xxxxxxxxxxx [id number] .[id number] 2014 Medicare MEDICARE MEDICAR E PART A AND B [id number] 2014-Present [phone] [place] [address] [id number] .7.3.255037.315 2007 Medicare [id number]. 1.13.680.2 .7.3.448812.315 2007 Medicare [id number] 1.2.840.303340.1.13.239.2 .7.3.875061.315 Unknown [id number] 2.16.840.1.437748.3.579.2 .462 Unknown [id number] 2.16.840.1.637360.3.579.2 .462 Unknown [id number] 2.16.840.1.039668.3.579.2 .462 Unknown [id number] 2.16.840.1.254009.3.579.2 .462 Unknown [id number] 2.16.840.1.321712.3.579.2 .462 Unknown [id number] 2.16.840.1.776964.3.579.2 .462 Unknown [id number] 2.16.840.1.773739.3.579.2 .462 Unknown [id number] 2.16.840.1.645848.3.579.2 .462 Unknown [id number] 2.16.840.1.583533.3.579.2 .462 Unknown [id number] 2.16.840.1.927864.3.579.2 .462 Unknown [id number] 2.16.840.1.566631.3.579.2 .462 Unknown [id number] 2.16.840.1.384520.3.579.2 .462 Unknown [id number] 2.16.840.1.984238.3.579.2 .462 Unknown [id number] 2.16.840.1.000266.3.579.2 .462 Unknown [id number] 2.16.840.1.334097.3.579.2 .462 Unknown [id number] 2.16.840.1.707756.3.579.2 .462 Unknown [id number] 2.16.840.1.451358.3.579.2 .462 Unknown [id number] 2.16.840.1.524704.3.579.2 .462 Unknown [id number] 2.16.840.1.638728.3.579.2 .462 Unknown [id number] 2.16.840.1.081013.3.579.2 .462 Unknown [id number] 2.16.840.1.197315.3.579.2 .462 Unknown [id number] 2.16.840.1.989479.3.579.2 .462 Unknown [id number] 2.16.840.1.930470.3.579.2 .462 Unknown [id number] 2.16.840.1.448526.3.579.2 .462 Social History Date Type Detail Facility Start: 09-21-2018 End: 08-27-2024 Tobacco smoking status NHIS Never smoker [facility] Start: 09-21-2018 End: 08-18-2024 Alcohol intake Not Currently [facility] [place] Start: 1940 Sex Assigned At Not on file [place] Start: 03-07-2019 End: 11-05-2020 Alcohol intake Ex-drinker (finding) [employer] Phone: Start: 08-04-2018 End: 03-07-2019 Tobacco use and exposure Never used [place], [place] Start: 1940 Sex Assigned At Female [facility] Work Phone: Start: 02-13-2022 End: 10-28-2022 Exposure to SARS-CoV-2 (event) Not sure [facility] Start: 02-10-2019 End: 04-04-2023 Tobacco smoking status NHIS Unknown if ever smoked [facility] Start: 02-10-2019 Non-smoker [facility] Start: 02-24-2022 End: 06-13-2022 Alcohol intake Not Asked [facility] Start: 06-14-2022 End: 08-18-2024 History of Social function [facility] Start: 11-27-2021 Sexual orientation Heterosexual (fin ding) [facility] Start: 08-25-2022 End: 08-18-2024 Alcohol intake Lifetime non-drinker (finding) [facility] Start: 09-08-2021 Sex Female (finding) [facility] NEGATED: Highlighted row [facility] Medical Equipment Procedure Code Equipment Code Equipment Origin al Text Equipment Identifier Dates TEST SUGAR ONCE A DAY [id number] Start: 03-27-2021 TEST SUGAR ONCE A DAY [id number] Start: 03-27-2021 Goals Date Patient Goal Desired Activity /State Functional Status Date Assessment Result Facility 05-13-2022 Functional status Bathroom Privilege [facility] Work Phone: Mental Status Date Assessment Result Facility 01-04-2023 Cognitive function Voice/Name [facility] Work Phone: 06-01-2022 Cognitive function Level Of Cons ciousness Awake;Alert;Appropriate;Follow s Commands [facility] Work Phone: 05-13-2022 Cognitive function Appropriate;Cooperativ e [facility] Work Phone: 05-13-2022 Cognitive function Voice/Name [facility] Work Phone: Clinical Notes 02-13-2019 to 08-18-2024 Toni Bey MD - 08/18/2024 2:30 PM EDT Note Date & Type Note Facility 08-18-2024 History of Presen t illness Narrative [facility] Medical [facility] Cardiology [facility] CARDIOLOGY - [address] [facility] [address] Dept: [phone] Dept Visit type: Established : 1940 Chief Complaint: Chief Complaint Patient presents with 1 Year Follow-up Coronary Artery Disease History of Present Illness: Prema Villalpando is a 83 y.o. female who is here in follow-up with her daughter. She has advanced dementia. She now lives in a senior living. There have not been complaints of chest [...] BUN 18 (H) 09/24/2022 CREATININE 0.85 09/24/2022 @LASTP@ Lab Results Component Value Date CHOL 143 [...] 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 2. Persistent atrial fibrillation (HCC) 3. Mixed hyperlipidemia 1. Coronary artery disease: She has a history of remote stenting. She is doing well with no symptoms of angina per the senior living. Continued medical therapy is recommended. 2. History [...] 08/08/2018 Dr Carroll [facility] [3] Family History Problem Relation [...] Disp: , Rfl: documented in this encounter [facility] 08-18-2024 Evaluation note Diagnosis Onset Date Resolution Dysphagia chronic August 18 9:09am Esophageal stenosis chronic August 18, 2024 9:09am [facility] Work Phone: [phone]) [phone] History of Present illness Narrative* Toni Bey MD - 08/18/2023 11:00 AM EDT [facility] Cardiology [facility]ARD[facility] [address] [facility] [address] Dept: [phone] Dept Visit type: Established : 1940 Chief [...] 08/08/2018 Dr Carroll [facility] Family History Family History Problem [...] 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 2. Persistent atrial [...] already stopped her statin. documented in this [facility]06-18-2024 Telephone encounter Note* Telephone Encounter - Olivia Lu - 07/27/2023 9:00 AM EDT Form signed and faxed back to [phone]. Form uploaded to [employer]. [id number] Miscellaneous Notes* Telephone Encounter - Olivia Leigh - 07/27/2023 9:00 AM EDT Form signed and faxed back to [phone]. Form uploaded to [employer]. * Telephone Encounter - Olivia Leihg - 07/23/2023 4:20 PM EDT Received form from [facility] for cardiac clearance for EGD with MAC sedation. Form and last OV given to nurse. documented in this [facility]06-14-2024 Telephone encounter Note* Telephone Encounter - Olivia Leigh - 07/23/2023 4:20 PM EDT Received form from [facility] for cardiac clearance for EGD with MAC sedation. Form and last OV given to nurse. [id number] Miscellaneous Notes* Telephone Encounter - Olivia Leigh - 07/23/2023 4:20 PM EDT Received form from [facility] for cardiac clearance for EGD with MAC sedation. Form and last OV given to nurse. documented in this encounterSPeoples [id number] Telephone encounter Note* Telephone Encounter - Sharmila Connell RN - 07/20/2023 7:29 AM EDT S: Patient's daughter Hossein spoke with [facility] nurse regarding fall. B: Onset [...] [2] no injury Protocols used: Falls and [id number] [facility] [id number] Miscellaneous Notes* Telephone Encounter - Sharmila Connell RN - 07/20/2023 7:29 AM EDT S: Patient's daughter Hossein spoke with [facility] nurse regarding fall. B: Onset [...] [2] no injury Protocols used: Falls and [id number] documented in this [facility]03-06-2024 Telephone encounter Note* Telephone Encounter - Olivia Leigh - 04/14/2023 12:37 PM EST Patient is scheduled to see JDR on 08/18/23. [facility] [id number] Miscellaneous Notes* Telephone Encounter - Olivia Leigh - 04/14/2023 12:37 PM EST Patient is scheduled to see JDR on 08/18/23. * Telephone Encounter - Barbi Horton RN - 04/12/2023 1:01 PM EST BEATRIS: 08/25/22, Labs: 09/24/22 documented in this [facility]03-04-2024 Telephone encounter Note* Telephone Encounter - Barbi Horton RN - 04/12/2023 1:01 PM EST BEATRIS: 08/25/22, Labs: 09/24/22 [facility] [id number] Miscellaneous Notes* Telephone Encounter - Barbi Horton RN - 04/12/2023 1:01 PM EST BEATRIS: 08/25/22, Labs: 09/24/22 documented in this [facility] [facility]25[facility] History of Present illness Narrative* Billie Reid APRN.[facility] - 04/04/2023 10:06 AM EST Patient was [...] her to the ER. [facility] History and physical note Author Roque Herrera [facility] January 04, 2023 11:21am Note Date/Time January 04, 2023 11:21am [facility] Medical Records Department [address] [place] [address] History & Physical Exam 01/04/23 1120 MR#: [id number] Acct: [id number] Name: PREMA VILLALPANDO Rep #:[id number] : 1940 82 From: Roque Herrera DO PCP: Mita Morton DO Status:REG [facility] Location: [place] [address] History and Physical Date of Admission: 01/04/23 [...] swallow liquids.? Her last dilatation was in [place]. ?Imaging demonstrates a large hiatal hernia. [facility] Medical History (Updated 05/12/22 @ 18:[address] Roque Herrera DO) Anemia Atherosclerotic heart disease of [place] coronary artery without angina pectoris Dementia Diabetes [...] (Auto) 70.4 H, Lymph % (Auto) 17.0 L,Lynn % (Auto) 8.8, Eos % (Auto) 2.9, [...] is seen. Large hiatal hernia. Electronically Signed: Dmear Toscano MD at 10:11 EDT , Assessment [...] (if applicable): CC: Mita Morton DO; Roque Herrera DO~ Signed [facility] Work Phone: [phone] 742-251311-27-2023 Procedure [facility] 01-04-2023 Procedure [facility]11-02-2023 Telephone encounter Note* Telephone Encounter - Olivia eLigh - 12/10/2022 1:03 PM EDT Form signed and faxed back to [phone] on 12/10/22. Form uploaded to [employer]. [facility] CenterJnjtew14-49-3581 Miscellaneous Notes* Telephone Encounter - Olivia Leigh - 12/10/2022 1:03 PM EDT Form signed and faxed back to [phone] on 12/10/22. Form uploaded to [employer]. * Telephone Encounter - Olivia Lu - 12/09/2022 2:03 PM EDT Received fax from [facility] for cardiac clearance for EGD on 01/04/23. Form and last OV given to nurse. documented in this [facility]11-01-2023 Telephone encounter Note* Telephone Encounter - Olivia Leigh - 12/09/2022 2:03 PM EDT Received fax from [facility] for cardiac clearance for EGD on 01/04/23. Form and last OV given to nurse. [facility] [id number] Miscellaneous Notes* Telephone Encounter - Olivia Leigh - 12/09/2022 2:03 PM EDT Received fax from [facility] for cardiac clearance for EGD on 01/04/23. Form and last OV given to nurse. documented in this [facility]09-13-2023 Discharge summary Author Ami Thayer [facility] October 21, 2022 1:29pm Note Date/Time October 21, 2022 1:29pm [facility] Physical Therapy [facility] [address] [place] [address]. [address] [place] [address] / REHABILITATION SERVICES DISCHARGE SUMMARY MR#: [id number] Acct: [id number] Name: PREMA VILLALPANDO Rep #: [id number] : 1940 82 From: Ami Thayer PT, Cert. MDT Referring DrDc: Mita Morton DO Status: REG RCR Insurance: MEDICARE PART A B [facility] Discharge Summary D/C summary: It has been [...] please feel free to call me at [phone]. Thank you for the referral of this patient. Sincerely, Ami Thayer, PT, Cert MDT Balance/Gait/Functional tests Balance/Special Test Scores Oswestry Low Back Score: 5 TUG Test Time Seconds: 11.53 Tug Test: <20 sec.=mostly independent 30 Second Chair Rise Test Seconds: 12 Improvement % Improvement: 98 <Electronically signed by Cassie Leo PT. T> 10/21/22 2859 CC: Mita Morton DO ~ ABIGAIL Signed [facility] Work Phone: [phone] 422-968408-17-2023 Miscellaneous Notes* Result Encounter Note - Cheryl Lopez PA-C - 09/24/2022 9:36 AM EDT Emigdio, Looks like labs were done for refill request. Liver function is less elevated that before, but please make sure she is following up on this with PCP or GI. Looks like she was admitted in June with this issue. documented in this [facility] [id number] Progress note* Result Encounter Note - Cheryl Lopez PA-C - 09/24/2022 9:36 AM EDT Emigdio, Looks like labs were done for refill request. Liver function is less elevated that before, but please make sure she is following up on this with PCP or GI. Looks like she was admitted in June with this issue. [facility] [employer] Work Phone: [phone]) 547-916408-07-2023 Miscellaneous Notes* Result Encounter Note - Cheryl Lopez PA-C - 09/14/2022 3:15 PM EDT Mrs. Villalpando, Your blood work you had done on September 14 look stable. Please call with any questions or concerns. Thank you, Cheryl Lopez PA-C documented in this [facility] [id number] Progress note* Result Encounter Note - Cheryl Lopez PA-C - 09/14/2022 3:15 PM EDT Mrs. Villalpando, Your blood work you had done on September 14 look stable. Please call with any questions or concerns. Thank you, Cheryl Lopez PA-C [facility] Work Phone: [phone] 402-931907-18-2023 NoteSinus Rhythm -Poor R-wave progression -may be secondary to pulmonary disease consider old anterior infarct. Low voltage with rightward P-axis and rotation -possible pulmonary disease. ABNORMAL [facility] CenterTjrsfv53-39-3066 NoteSinus Rhythm -Poor R-wave progression -may be secondary to pulmonary disease consider old anterior infarct. Low voltage with rightward P-axis and rotation -possible pulmonary disease. ABNORMAL [facility] CenterLjvupz42-68-3340 History of Present illness Narrative* Toni Bey MD - 08/25/2022 10:00 AM EDT [facility] Cardiology [facility] [address] [facility] [address] Dept: [phone] Dept Visit type: Established : 1940 Chief [...] 08/08/2018 Dr Carroll [facility] Family History Family History Problem [...] 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 2. Persistent atrial fibrillation (HCC) 3. Mixed hyperlipidemia 1. Coronary artery disease: She is currently stable. She has a history of stenting. She has no symptoms of angina. 2. Hyperlipidemia: On therapy. 3. Progressive dementia. 4. Recurrent anemia documented in this [facility]06-14-2023 Telephone encounter Note* Telephone Encounter - Olivia Leigh - 07/22/2022 12:51 PM EDT Patient now scheduled with JDR on 08/25/22. [facility] [id number] Miscellaneous Notes* Telephone Encounter - Olivia Leigh - 07/22/2022 12:51 PM EDT Patient now scheduled with JDR on 08/25/22. * Telephone Encounter - Leslie Samson RN - 07/20/2022 8:26 AM EDT Last OV with JDR on 08/20/21 (next OV 02/20/21 not scheduled) CMP 06/16/22 documented in this encounterSPeoples HospitalOyavgt72-03-7975 Telephone encounter Note* Telephone Encounter - Leslie Samson RN - 07/20/2022 8:26 AM EDT Last OV with JDR on 08/20/21 (next OV 02/20/21 not scheduled) CMP 06/16/22 [facility] [id number] Note* Care Coordination - Alex Delatorre - 06/16/2022 3:28 PM EDT Discharge med list, MAR and covid transfer information transmitted to [facility] via Careport per TCC request. 7000 completed in [place]. Facility is aware. [facility] [id number] Note* Care Coordination - Alex Delatorre - 06/16/2022 3:28 PM EDT Discharge med list, MAR and covid transfer information transmitted to [facility] via [facility] per TCC request. 7000 completed in [place]. Facility is aware. [place] [id number] Miscellaneous Notes* Care Coordination - Alex Delatorre - 06/16/2022 3:28 PM EDT Discharge med list, MAR and covid transfer information transmitted to [facility] via [employer] per TCC request. 7000 completed in [facility]. Facility is aware. * Care Coordination - Unknown Case Management - 06/16/2022 3:17 PM EDT Patient Choice Patient Name: PREMA VILLALPANDO Date of : 1940 All Providers Sent Referral Name: [facility] Phone: [phone] Address: [address] [place] [address] * Care Coordination - Vika Thompson RN - 06/16/2022 2:59 PM EDT Task sent to [facility] via [employer] to complete 7000 and send it with dc paperwork and Covid results to [facility]. . * Care Coordination - MARA Garcia - 06/16/2022 2:12 PM EDT Dc transportation arranged for 5:00 to [facility] in [place]. Spoke with patients daughter via phone to discuss the dc arrangements and the pickling operator time. Ambulance transport form completed. * Care Coordination - Alex Delatorre - 06/16/2022 11:02 AM EDT Referral placed to SNF- [facility] via Careport per TCC request. Await review and response regarding ability to accept. TCC notified. * Care Coordination - Vika Thompson RN - 06/16/2022 10:54 AM EDT Images from the original note were not included. Care Management Progress Note Secure message from Dr. Morton patient is ready for SNF placement. Daughter, Hossein, called and gave choice of [facility] in [place]. Task sent to [facility] via [facility]portto place referral to above. [...] PM EDT Patient is currently active with [facility]. The patients current certification period will on 07/31/2022. The patient is currently receiving PT/OT/ST services through the agency. [employer] to continue to follow. Placed in care port and sparc * Care Coordination - Josey Mckeon RN - 06/13/2022 4:28 PM EDT Care Managment Initial Assessment Date: 06/13/2022 Patient Name: Prema Villalpando : 1940 Patient Information Source of Information: Patient, Patient Roll Examiner Name/Contact Information: HOSSEIN RIVAS [phone] DAUGHTER AND DAUGHTER YAZ DAVIS [phone] Cognition/Language: WFL - Within Functional Limits Permission given to speak with patient software support representative/caregiver as indicated: Yes Confirmation of Payer with patient/family: Yes Payer Name: MMO : No Confirmation of Primary Care Physician: Confirmed PCP Name: DR. MORTON Seen in last 2 years?: Yes Primary Caregiver: Family If assistance needed, confirmed caregiver ready, willing and able to care for patient at discharge:Yes Confirmed with: AKI CATALAN Living Arrangements Current Residence: (TRAILER) Number of Floors 1 Number of Entry Steps: 2 Bed/Bath Levels: Both first floor Facility: Facility Name: NA Plan to Return: Yes Lives with: Alone Support Systems: Children, Family members, Home care staff, Comments (Other) ([facility]) Activities of Daily Living Ambulation: Independent Bathing/Dressing: Independent Elimination/Continence/Toileting: Independent Feeding: Independent Who Assists with Activities of Daily Living: NA Instrumental Activities of Daily Living Prescription Coverage: Yes Pharmacy Used: [facility] Medication Management: Prescription pick-up Who assists with medication securing and setup?: DAUGHTER SECURES AND SETS UP MEDS Transportation/Shopping: Assistance Provider Transportation/Shopping Assistance Provider Name: DAUGHTER OR [facility] Transportation Mode: Car, Senior/disability transport service Needs Assistance with Transportation at Discharge: No (DAUGHTER) Meal Preparation: Assistance Provider Meal Prep Assistance Provider Name: DAUGHTER Laundry/Cleaning: Assistance Provider Laundry/Cleaning Assistance Provider Name: DAUGHTER Finances/Bill Paying: Assistance Provider Finances/Bill Payer Assistance Provider Name: DAUGHTER Communication: Independent Types of Care Services/Equipment Utilized Care Services: Skilled Home Health Services Care Services Provider Name: UNSURE IF THROUGH [facility] OR [employer] Dialysis Type: NA Durable Medical Equipment: Walker, [...] status from home with anemia. [facility]. Admissions orders are pending. Discharge preparation checklist reviewed with patient and her daughter Hossein. Patient lives in [facility] [facility] [place] door to her daughter and son in law. Is active with the [facility] M-F 730-330pm. Her daughter states she has occupational therapy that was seeing her at [facility] and was going to start with ST for swallowing. student liaison officer updated via [facility] and is following. Daughter uncertain if through [employer] or [employer]. Daughter assists patient with all household tasks and patient is independent in her adls. Does not anticipate any needs upon discharge and tentative discharge plan is home with resumption of previous services when medically stable. Will likely need pt/ot evals to assist with dc planning needs. .. Josey Mckeon RN documented in this [facility]05-09-2023 Note* Care Coordination - Unknown Case Management - 06/16/2022 3:17 PM EDT Patient Choice Patient Name: PREMA VILLALPANDO Date of : 1940 All Providers Sent Referral Name: [facility] Phone: [phone] Address: [address] [place] [address] [facility] [id number] Note* Care Coordination - Unknown Case Management - 06/16/2022 3:17 PM EDT Patient Choice Patient Name: PREMA VILLALPANDO Date of : 1940 All Providers Sent Referral Name: [facility] Phone: [phone] Address: [address] [place] [address] [facility] CenterCbqntg57-83-6664 Note* Care Coordination - Vika Thompson RN - 06/16/2022 2:59 PM EDT Task sent to [facility] via [employer] to complete 7000 and send it with dc paperwork and Covid results to [facility]. . [facility] CenterUqirhx51-30-7922 Note* Care Coordination - Vika Thompson RN - 06/16/2022 2:59 PM EDT Task sent to [facility] via [employer] to complete 7000 and send it with dc paperwork and Covid results to [facility]. . [facility] CenterTshqzp61-52-9477 Note* Care Coordination - MARA Garcia - 06/16/2022 2:12 PM EDT Dc transportation arranged for 5:00 to [facility] in [place]. Spoke with patients daughter via phone to discuss the dc arrangements and the pickling operator time. Ambulance transport form completed. [facility] CenterKwuycy47-38-5247 Note* Care Coordination - MARA Garcia - 06/16/2022 2:12 PM EDT Dc transportation arranged for 5:00 to [facility] in [place]. Spoke with patients daughter via phone to discuss the dc arrangements and the pickling operator time. Ambulance transport form completed. [facility] CenterLkndcg51-09-6427 History of Present illness Narrative* ASHLY Castaneda - 06/16/2022 2:08 PM EDT Occupational Therapy Facility/Department: [facility] 1E Occupational Therapy Treatment NAME: Prema Villalpando : 1940 Date of Service: 06/16/2022 Discharge Recommendations: Subacute/Shelter Facility, Continue to assess pending progress (vs [facility] with 24 hr SUP) Assessment REQUIRES OT [...] recent events, Decreased short term memory, Decreased intermediate card tender memory Safety Judgement: Decreased awareness of need [...] 11:26 AM EDT Physical Therapy Facility/Department: [facility] Physical Therapy Daily Treatment Note NAME: Prema Villalpando : 1940 Date of Service: 06/16/2022 Discharge Recommendations: Subacute/Shelter Facility, Continue to assess pending progress (vs [facility] with 24 hr SUP) PT Equipment Recommendations [...] recent events, Decreased short term memory, Decreased intermediate card tender memory Safety Judgement: Decreased awareness of need [...] Inpatient Mobility Raw Score: 16 Mobility Inpatient [facility] G-Code Modifier: CK Goals Encounter Problems [...] Skilled Facility - Pending the following - MITA MORTON DO 06/15/22 9:20 AM * Elvie Skelton - 06/15/2022 8:26 AM EDT Nutrition rescreen completed. Patient assigned a level 1. * Franklin Aviles PT - 06/14/2022 3:11 PM EDT Physical Therapy Facility/Department: [address] Physical Therapy Initial Evaluation NAME: Prema [...] recent events, Decreased short term memory, Decreased mcfp memory Safety Judgement: Decreased awareness of need [...] Device: rolling walker Transfer Assistance: Independent Active Dancing Master: No Patient's Dancing Master Info: Per pt report her daughter drives her. Additional Comments: Paialdair attend [facility] during day ,adult day care Objective Observation/Palpation [...] Inpatient Mobility Raw Score: 17 Mobility Inpatient [facility] G-Code Modifier: CK Goals Encounter Problems [...] Minutes 12 Franklin Aviles PT * Robyn Bernal OT - 06/14/2022 1:51 PM EDT Occupational Therapy Facility/Department: [address] Occupational Therapy Initial Evaluation NAME: Prema [...] recent events, Decreased short term memory, Decreased mcfp memory Safety Judgement: Decreased awareness of need [...] Device: rolling walker Transfer Assistance: Independent Active Dancing Master: No Patient's Dancing Master Info: Per pt report her daughter drives [...] Daily Activity Raw Score: 18 ADL Inpatient [facility] G-Code Modifier: CK Goals Encounter Problems [...] Radha Bernal OT documented in this [facility]05-09-2023 Note* Care Coordination - Alex Delatorre - 06/16/2022 11:02 AM EDT [facility]. Await review and response regarding ability to accept. TCC notified. [facility] CenterVkqsqo93-41-1276 Note* Care Coordination - Alex Delatorre - 06/16/2022 11:02 AM EDT Referral placed to SNF- [facility] via [facility]port per TCC request. Await review and response regarding ability to accept. TCC notified. [facility] CenterFruxei90-61-7859 Note* Care Coordination - Vika Thompson RN - 06/16/2022 10:54 AM EDT Images from the original note were not included. Care Management Progress Note Secure message from Dr. Morton patient is ready for SNF placement. Daughter, Hossein, called and gave choice of [facility] in [place]. Task sent to [facility] via [facility]to place referral to above. [...] Length of Stay (Days): 3 GMLOS: 2.7 [facility] CenterEywrjn96-12-7148 Note* Care Coordination - Vika Thompson RN - 06/16/2022 10:54 AM EDT Images from the original note were not included. Care Management Progress Note Secure message from Dr. Morton patient is ready for SNF placement. Daughter, Hossein, called and gave choice of [facility] in [place]. Task sent to [facility] via [facility] place referral to above. Will watch for [...] Morton, DO 06/13/2022 4:03 PM 06/16/2022 Mita Morton DO 06/13/2022 4:02 PM 06/16/2022 Eric Cintron MD 06/13/2022 3:32 PM Length of Stay (Days): 3 GMLOS: 2.7 [facility] [id number] Nurse Note* Fiordaliza Del Castillo RN - 06/16/2022 6:04 AM EDT This nurse attempted to call both of the patients' daughters at this time to obtain a breakfast order for the patient. Both numbers went straight to voicemail. [facility] [id number] Nurse Note* Fiordaliza Del Castillo RN - [...] and pillowed positioning. ] documented in this encounterSPeoples HospitalVvnapm19-31-0559 Nurse Note* Fiordaliza Del Castillo RN - 06/16/2022 5:45 AM EDT This RN and Esme HEWITT performed a complete bed bath with hair washing and skin care at this time. All new linens including gown, body bathed, hair washed, lotion applied, barrier cream applied, incontinence brief, and pillowed positioning. ] [facility]05-09-2023 Plan of care note* Care Plan - [...] is maintained or improved Outcome: Progressing T [facility] CenterFhmbeu56-25-5262 Note* Care Coordination - Vika Thompson RN [...] Length of Stay (Days): 2 GMLOS: 2.7 [facility] CenterSnujts22-59-0196 Note* Care Coordination - Vika Thompson RN [...] Length of Stay (Days): 2 GMLOS: 2.7 T [facility] CenterTgbpca67-67-3481 Plan of care note* Care Plan - [...] to address these barriers include increase mobility. [facility] CenterYnpvyd02-99-4421 Consult note* Jersey Rollins MD - 06/14/2022 1:43 PM EDTAssociated Order(s): Inpatient consult to Gastroenterology Images from the original note were not included. GI CONSULTATION Patient: Prema Villalpando : 1940 Primary Care Physician: Lu Hernández Inpatient consult to Gastroenterology Consult performed by: [...] 08/08/2018 Dr Carroll [facility] FAMILY HISTORY: Family History Problem [...] Take 81 mg by mouth daily. Historical ProviderMD ASPIRIN 81 PO 81 mg. 11/14/18 Historical ProviderMD atorvastatin (Lipitor) 80 MG tablet TAKE 1 TABLET BY MOUTH NIGHTLY 12/15/21 Toni Bey MD atorvastatin (Lipitor) 80 MG tablet Take 1 tablet by mouth Nightly. 11/11/21 Historical Provider, clopidogrel (Plavix) 75 MG tablet Take 75 mg by mouth daily. Historical Provider, clopidogrel (Plavix) 75 MG tablet Take 1 tablet by mouth daily. 11/14/18 Historical ProviderMD dicyclomine (Bentyl) 10 MG capsule TAKE 1 [...] swallow.. 02/27/22 02/27/23 Gin Finn APRN - CITY PLANNING AIDE Lancets (OneTouch Delica) lancets 30G TEST SUGAR [...] BY MOUTH TWICE DAILY 11/14/18 Historical Provider, @MEDED@ ALLERGIES: Allergies Allergen Reactions Ticagrelor Shortness of [...] PLT 188 171 HEPATIC: Recent Labs 06/13/22 14406/14/22 0531 AST 311* 218* ALT 185* 152* [...] 06/13/2022 Patient Name: [facility]PANDO [facility] 1940 [id number] Date/Time: 06/13/2022 15:21 Procedure: XR PELVIS 1-2 [...] am labs Continue to monitor Hgb closely [facility] CenterIcxnve79-72-5914 Consult note* Jersey Rollins MD - 06/14/2022 1:43 PM EDTAssociated Order(s): Inpatient consult to Gastroenterology Images from the original note were not included. GI CONSULTATION Patient: Prema Villalpando : 1940 Primary Care Physician: Lu Hernández Inpatient consult to Gastroenterology Consult performed by: [...] with dilation of esophageal stricture with TTS 12. Biopsies positive for EOE. Unsure when last [...] 08/08/2018 Dr Carroll [facility] FAMILY HISTORY: Family History Problem [...] swallow.. 02/27/22 02/27/23 Gin Finn APRN - [employer] PLANNING AIDE Lancets (OneTouch Delica) lancets 30G TEST SUGAR [...] capsule by mouth daily. 11/14/18 Historical ProviderMD OneTouch Ultra test strip TEST SUGAR ONCE [...] tablet by mouth daily. 11/14/18 Historical Provider, MD ursodiol (Actigall) 300 MG capsule TAKE 1 CAPSULE BY MOUTH TWICE DAILY 11/14/18 Historical Provider, @MEDED@ ALLERGIES: Allergies Allergen Reactions Ticagrelor Shortness of [...] monitor Hgb closely documented in this [facility]05-07-2023 History and physical note* Mita Morton, - 06/14/2022 10:15 AM EDT Department of [...] TUBAL LIGATION 1989 UPPER GASTROINTESTINAL ENDOSCOPY 08/08/2018 [facility] Medications Prior to Admission: Medications [...] Do not swallow.. 12 g 1 Lancets ([employer]amuch Delica) lancets 30G TEST SUGAR ONCE A [...] capsule Take 1 capsule by mouth daily. 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 12 g 1 Lancets (Eventstagr.amuch Delica) lancets 30G TEST SUGAR ONCE A [...] capsule Take 1 capsule by mouth daily. 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 Esophageal obstruction Dysphagia Dementia (HCC) Anemia AMS Elevated lfts Anemia DM 2 HTN HPL Plan Admit to med tele Consult GI Pt/ot eval Monitor labs MITA MORTON DO 06/14/22 10:15 AM documented in this [facility]05-06-2023 Hospital Discharge instructions* Discharge Instr - Other Orders* Estelle Mitchell LPN - 06/13/2022 5:59 PM EDT Discharging to Facility/ Agency Name: [facility] Address: [address] [place] [address] * Discharge Instr - NAOMIE* Nicole Boles [...] Emergency Contact Information Primary Emergency Contact: Hossein Rivas [place] Relation: Child Secondary Emergency Contact: Yaz Davis Help Remedies Relation: Child Past Surgical History: Past Surgical History: Procedure Laterality Date CHOLECYSTECTOMY 03/2019 COLONOSCOPY COLONOSCOPY 03/07/2019 stent removal COLONOSCOPY 09/21/2018 ERCP (HISTORICAL) 02/15/2019 EYE SURGERY Bilateral cataract THROAT SURGERY 2014 TUBAL LIGATION 1989 UPPER GASTROINTESTINAL ENDOSCOPY 08/08/2018 Dr Carroll [facility] Immunization History: Immunization History Administered [...] 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 Isolation/Infection: No active [...] assistance Toileting Minimal assistance Feeding Minimal assistance Flame Cutting Supervisor Minimal assistance Med Delivery yes Wound Care [...] Score: @READMISSIONRISKDETAILS@ Discharging to Facility/ Agency Name: Aannd Velasquez Address: [address] [place] [address] Rd[address] [place] [address] Fax: Dialysis Facility (if applicable) Name: Address: Dialysis Schedule: Phone: Fax: Historic Sites Supervisor/College Intern signature: ICIAN SECTION Prognosis: fair Condition at Discharge: stable Rehab Potential (if transferring to Rehab): fair Recommended Labs or Other Treatments After Discharge: none Physician Certification: I certify the above information and transfer of Prema Villalpando is necessary for the continuing treatment of the diagnosis listed and that she requires halfway facility for less than 30 days. Update Admission H&P: No change in H&P PHYSICIAN SIGNATURE: documented in this [facility]05-06-2023 Note* Home Care - Estelle Mitchell LPN - 06/13/2022 5:56 PM EDT Patient is currently active with [facility]. The patients current certification period will on 07/31/2022. The patient is currently receiving PT/OT/ST services through the agency. Knife Finisher to continue to follow. Placed in care port and sparc [id number] Note* Home Care - Estelle Mitchell LPN - 06/13/2022 5:56 PM EDT Patient is currently active with [facility]. The patients current certification period will on 07/31/2022. The patient is currently receiving PT/OT/ST services through the agency. Knife Finisher to continue to follow. Placed in care port and sparc [facility] CenterVmofvw85-05-9135 Note* Care Coordination - Josey Mckeon RN - 06/13/2022 4:28 PM EDT Care Managment Initial Assessment Date: 06/13/2022 Patient Name: Prema Villalpando : 1940 Patient Information Source of Information: Patient, Patient Roll Examiner Name/Contact Information: HOSSEIN RIVAS [phone] DAUGHTER AND DAUGHTER YAZ DAVIS [phone] Cognition/Language: WFL - Within Functional Limits Permission given to speak with patient software support representative/caregiver as indicated: Yes Confirmation of Payer with patient/family: Yes Payer Name: MMO [place]: No Confirmation of Primary Care Physician: Confirmed PCP Name: DR. MORTON Seen in last 2 years?: Yes Primary Caregiver: Family If assistance needed, confirmed caregiver ready, willing and able to care for patient at discharge:Yes Confirmed with: AKI CATALAN Living Arrangements Current Residence: ([facility]) Number of Floors 1 Number of Entry Steps: 2 Bed/Bath Levels: Both first floor Facility: Facility Name: NA Plan to Return: Yes Lives with: Alone Support Systems: Children, Family members, Home care staff, Comments (Other) ([facility]) Activities of Daily Living Ambulation: Independent Bathing/Dressing: Independent Elimination/Continence/Toileting: Independent Feeding: Independent Who Assists with Activities of Daily Living: NA Instrumental Activities of Daily Living Prescription Coverage: Yes Pharmacy Used: [facility] Medication Management: Prescription pick-up Who assists with medication securing and setup?: DAUGHTER SECURES AND SETS UP MEDS Transportation/Shopping: Assistance Provider Transportation/Shopping Assistance Provider Name: AKI OR [facility] Transportation Mode: Car, Senior/disability transport service [...] Provider Name: UNSURE IF THROUGH [facility] OR [facility] Dialysis Type: NA Durable Medical Equipment: Walker, [...] status from home with anemia. [facility]. Admissions orders are pending. Discharge preparation checklist reviewed with patient and her daughter Hossein. [facility] [place] [facility] [place] to her daughter and son in law. Is active with the [facility] M-F 730-330pm. Her daughter states she has occupational therapy that was seeing her at [facility] and was going to start with ST for swallowing. student liaison officer updated via [employer] and is following. Daughter uncertain if through [employer] or [facility]. Daughter assists patient with all household tasks and patient is independent in her adls. Does not anticipate any needs upon discharge and tentative discharge plan is home with resumption of previous services when medically stable. Will likely need pt/ot evals to assist with dc planning needs. .. Josey Mckeon RN [id number] Note* Care Coordination - Josey Mckeon RN - 06/13/2022 4:28 PM EDT Care Managment Initial Assessment Date: 06/13/2022 Patient Name: Prema Villalpando : 1940 Patient Information Source of Information: Patient, Patient Roll Examiner Name/Contact Information: HOSSEIN RIVAS [phone] DAUGHTER AND DAUGHTER YAZ DAVIS [phone] Cognition/Language: WFL - Within Functional Limits Permission given to speak with patient software support representative/caregiver as indicated: Yes Confirmation of Payer with patient/family: Yes Payer Name: MMO : No Confirmation of Primary Care Physician: Confirmed PCP Name: DR. MORTON Seen in last 2 years?: Yes Primary Caregiver: Family If assistance needed, confirmed caregiver ready, willing and able to care for patient at discharge:Yes Confirmed with: AKI CATALAN Living Arrangements Current Residence: ([facility]) Number of Floors 1 Number of Entry Steps: 2 Bed/Bath Levels: Both first floor Facility: Facility Name: [facility] Plan to Return: Yes Lives with: Alone Support Systems: Children, Family members, Home care staff, Comments (Other) ([facility]) Activities of Daily Living Ambulation: Independent Bathing/Dressing: Independent Elimination/Continence/Toileting: Independent Feeding: Independent Who Assists with Activities of Daily Living: NA Instrumental Activities of Daily Living Prescription Coverage: Yes Pharmacy Used: [facility] Medication Management: Prescription pick-up Who assists with medication securing and setup?: DAUGHTER SECURES AND SETS UP MEDS Transportation/Shopping: Assistance Provider Transportation/Shopping Assistance Provider Name: [facility] Transportation Mode: Car, Senior/disability transport service Needs Assistance with Transportation at Discharge: No (DAUGHTER) Meal Preparation: Assistance Provider Meal Prep Assistance Provider Name: DAUGHTER Laundry/Cleaning: Assistance Provider Laundry/Cleaning Assistance Provider Name: DAUGHTER Finances/Bill Paying: Assistance Provider Finances/Bill Payer Assistance Provider Name: DAUGHTER Communication: Independent Types of Care Services/Equipment Utilized Care Services: Skilled Home Health Services Care Services Provider Name: UNSURE IF THROUGH [facility] OR [facility] Dialysis Type: NA Durable Medical Equipment: Walker, [...] status from home with anemia. [facility]. Admissions orders are pending. Discharge preparation checklist reviewed with patient and her daughter Hossein. [place] her daughter and son in law. Is active with the [facility] M-F 730-330pm. Her daughter states she has occupational therapy that was seeing her at [facility] and was going to start with ST for swallowing. student liaison officer updated via [facility] and is following. Daughter uncertain if through [employer] or [employer]. Daughter assists patient with all household tasks and patient is independent in her adls. Does not anticipate any needs upon discharge and tentative discharge plan is home with resumption of previous services when medically stable. Will likely need pt/ot evals to assist with dc planning needs. .. Josey Mckeon RN [facility] [id number] Emergency department Note* Natalie Scott RN - 06/13/2022 3:13 PM EDT This RN clarified magnesium order with eev Moreno to give per provider. Natalie Scott RN 06/13/22 1514 [facility] CenterSmjurx57-33-0461 Emergency department Note* Natalie Scott RN - [...] incidence of candidiasis. Do not swallow.. LANCETS (OriginalTOUCH DELICA) LANCETS 30G TEST SUGAR ONCE A [...] accompanied by daughter documented in this [facility]05-06-2023 Emergency department Note* Natalie Scott RN - 06/13/2022 3:03 PM EDT Patient placed in wheelchair to use restroom, pt ambulated well independently from wheelchair to bathroom Natalie Scott RN 06/13/22 1508 [facility] CenterIhgdum62-18-2097 Emergency department Triage note* Ashanti Michelle RN - 06/13/2022 12:04 PM EDT Pt presents from outpatient ECHO due to bilateral leg edema. +2 edema noted. Pt rene historian. Pt accompanied by daughter [facility] CenterDmkmtt01-69-1866 Physician Emergency department Note* Eric Cintron MD [...] changes. Report Dictated on Electronically Signed By: Nkio Talley Electronically Signed Date/Time: 06/13/2022 3:16 PM [...] (electronically signed) Eric Cintron MD 06/13/22 1543 [facility] CenterBohthn17-29-[address] Younger [facility] June 01, 2022 11:43pm Note Date/Time June 01, 2022 11: 15pm [facility] Medical Records Department [address] [place] [address] Emergency Department Summary 06/01/22 MR#: [id number] Acct: [id number] Name: PREMA VILLALPANDO Rep #:[id number] : 1940 81 From: Xavier Younger MD PCP: Mita Morton DO Status:REG ER Location: ED HPI History of Present Illness Chief Complaint: Fatigue [facility] Medical History (Updated 06/01/22 @ 23:[address] Xavier Younger MD) Anemia Atherosclerotic heart disease of [place] coronary artery without angina pectoris Dementia Diabetes [...] (Auto) 70.1 H Lymph % (Auto) 22.3 Lynn % (Auto) 5.5 Eos % (Auto) 1.1 [...] Color Urine Clarity Urine pH Ur Specific [place] Urine Protein Urine Glucose (UA) Urine Ketones Urine Occult Blood Urine Nitrite Urine Bilirubin Urine Urobilinogen Ur Leukocyte Esterase Urine RBC Urine WBC Ur Squamous Epith Cells Urine Bacteria Urine Mucus 06/01/22 21:40 WBC RBC Hgb Hct MCV MCH MCHC RDW Std Deviation RDW Coeff of Galen Plt Count MPV Immature Gran % (Auto) Neut % (Auto) Lymph % (Auto) Lynn % (Auto) Eos % (Auto) Baso % (Auto) Absolute Neuts (auto) Absolute Lymphs (auto) Nucleated RBC % Sodium Potassium Chloride Carbon Dioxide Anion Gap BUN Creatinine Est GFR (MDRD) Af Amer Est GFR (MDRD) Non-Af BUN/Creatinine Ratio Glucose Calcium Total Bilirubin Direct Bilirubin AST ALT Alkaline Phosphatase Total Protein Albumin Globulin Urine Color Yellow Urine Clarity Sl. Cloudy Urine pH 5.0 Ur Specific [place] 1.015 Urine Protein 30 H Urine Glucose [...] compared to prior exam. Electronically Signed: Dimitris DO Carol at 22:02 EDT , Chest X-Ray 06/01/22 [...] Referrals: Mita Morton, [Primary Care Provider] - 3-5 Days Disposition Disposition: Home, Self Care What to do if you have Problems For any increased pain, shortness of breath, bleeding, nausea or vomiting, chestpain, or any unexpected problems, contact your Primary Care Provider. Call [facility] ([phone]) or report to the closest Emergency Room. Call 911 if necessary. 06/01/222342 <Electronically signed by Xavier Younger MD> Cosigner Signature (if applicable): CC: Mita Morton DO ~ Signed [facility] Work Phone: 1(769) 203-108504-05-[address] Pack [facility] May 13, 2022 3:47pm Note Date/Time May 13, 2022 3:46 pm [facility] Medical Records Department [address] [place] [address] Instructions for Home/Discharge Instructions 05/13/22 1545 MR#: [id number] Acct: [id number] Name: PREMA VILLALPANDO Rep #:[id number] : 1940 81 From: Jovi galvez MD [...] can be placed): Home, Self Care 05/13/22 9363<Electronically signed by Jovi Pack MD>Jovi Pack MD CC: Mita Morton DO ~ Signed [facility] Work Phone: 1([phone]) 514-218904-05-[address] [facility] May 13, 2022 2:10pm Note Date/Time May 13, 2022 2:10 pm [facility] Medical Records Department [address] [place] [address] Discharge Summary 05/13/22 1406 MR#: [id number] Acct: [id number] Name: PREMA VILLALPANDO Rep #:[id number] : 1940 81 From: Jovi galvez MD PCP: Mita Morton DO Status:ADM WARD [facility] [facility] Providers Date of Admission: 05/12/22 Primary Care Physician: Dr. Mita Morton DO Consultations 05/12/22 12:48 Consult: Gastroenterology Routine Consulting Provider: [facility] Reason for Consult: Dysphagia EMERGENT Consult: [...] had another 1 at a hospital in [place] in January 2022.? She has been having [...] % (Auto) 61.7, Lymph % (Auto) 21.4, Lynn % (Auto) 11.8 H, Eos % (Auto) [...] Shelter Facility Charges/Coding Visit Charges Inpatient E&M: 69908 Disch Hosp >30min 05/13/22 1410 <Electronically signed by Jovi Pack MD> Cosigner Signature (if applicable): CC: Dr. Jovi Pack MD; Mita Morton DO~ Signed [facility] Work Phone: 1(112) 701-184704-05-[address] Pack [facility] May 13, 2022 1:53pm Note Date/Time May 13, 2022 1:51 pm [facility] Medical Records Department [address] [place] [address] Transfer to [facility] MR#: [id number] Acct: [id number] Name: PREMA VILLALPANDO Rep #:[id number] : 1940 81 From: Jovi galvez MD PCP: Mita Morton DO Status:ADM WARD Certification of patient admission REQUIRED AT TIME OF ADMISSION. I CERTIFY THAT POST-HOSPITAL ECF SERVICES ARE REQUIRED TO BE GIVEN ON AN IN-PATIENT BASIS BECAUSE OF THE ABOVE NAMED PATIENT'S NEED FOR LONGTERM CARE ON A CONTINUING BASIS FOR THE CONDITION(S) FOR WHICH HE/SHE WAS RECEIVING IN-PATIENT HOSPITAL SERVICES PRIOR TO HIS/HER TRANSFER TO THE ECF. 05/13/22 1353<Electronically signed by Jovi Pack MD> [...] Recommendations/Changes: Continue Cardiac diet with texture/consistency per MOTOR VEHICLE OR CARAVAN SALESPERSON/MD. Continue 120mL EPHP TID with medpass to [...] (if applicable): CC: Mita Morton DO ~ [facility] Work Phone: 1(627) 937-807604-05-[address] Pack [facility] May 13, 2022 9:17am Note Date/Time May 13, 2022 9:13 am [facility] Medical Records Department [address] [place] [address] Progress Note - Hospitalist 05/13/22 0910 MR#: [id number] Acct: [id number] Name: PREMA VILLALPANDO Rep #:[id number] : 1940 81 From: Jovi galvez MD PCP: Mita Morton DO Status:ADM WARD Location: [place] [address] Subjective Subjective Doing well, no issues overnight [...] (Auto) 70.4 H, Lymph % (Auto) 17.0 L,Lynn % (Auto) 8.8, Eos % (Auto) 2.9, [...] % (Auto) 61.7, Lymph % (Auto) 21.4, Lynn % (Auto) 11.8 H, Eos % (Auto) [...] DVT: SCDs Charges/Coding Visit Charges Inpatient E&M: 49780 Subs Hosp L2 05/13/22 0917 <Electronically signed by Jovi Pack MD> Cosigner Signature (if applicable): CC: ~ Signed [facility] Work Phone: 1([phone]) 432-346104-05-2023 Procedure [facility] 05-13-2022 Procedure [facility]04-04-2023 Consult note Author Roque Friend [facility] May 12, 2022 6:47pm Note Date/Time May 12, 2022 6:45 pm [facility] Medical Records Department [address] [place] [address] Consultation - GI 05/12/22 1844 MR#: [id number] Acct: [id number] Name: PREMA VILLALPANDO Rep #:[id number] : 1940 81 From: Roque Herrera DO PCP: Mita Morton DO Status:ADM WARD Location: MS3 [id number] HPI Consult Data Date of Consult: 05/12/22 [...] swallow liquids.? Her last dilatation was in [place]. ?Imaging demonstrates a large hiatal hernia. [facility] Medical History (Updated 05/12/22 @ 18:[address] Nevarez Friend, DO) Anemia Atherosclerotic heart disease of [place] coronary artery without angina pectoris Dementia Diabetes [...] (Auto) 70.4 H, Lymph % (Auto) 17.0 L,Lynn % (Auto) 8.8, Eos % (Auto) 2.9, [...] of 3. Charges/Coding Visit Charges Inpatient E&M: 43539 Init Hosp L2 05/12/22 1847 <Electronically signed by Roque Friend > Cosigner Signature (if applicable): CC: Mita Morton DO~ Signed [facility] Work Phone: 1([phone]) 121-586304-04-[address] Benitez [facility] May 12, 2022 4:36pm Note Date/Time May 12, 2022 10:0 0am [facility] Medical Records Department [address] [place] [address] Emergency Department Summary 05/12/22 MR#: [id number] Acct: [id number] Name: PREMA VILLALPANDO Rep #:[id number] : 1940 81 From: Zonia Benitez DO PCP: Mita Morton DO Status:ADM WARD Location: [place] [address] HPI History of Present Illness Chief Complaint: [...] swallow liquids. Her last dilatation was in [place]. [facility] Medical History (Updated 05/12/22 @ 11:[address] Zonia Benitez DO) Anemia Atherosclerotic heart disease of [place] coronary artery without angina pectoris Dyslipidemia Gallstone [...] swallow without difficulty. I discussed case with electrician underground on-call Dr. Herrera. He felt admitting the [...] 70.4 H Lymph % (Auto) 17.0 L Lynn % (Auto) 8.8 Eos % (Auto) 2.9 [...] Provider] - Disposition Disposition: Acute Care Hospital [facility] What to do if you have Problems For any increased pain, shortness of breath, bleeding, nausea or vomiting, chestpain, or any unexpected problems, contact your Primary Care Provider. Call [facility] ([phone]) or report to the closest Emergency Room. Call 911 if necessary. 05/12/22 1636 <Electronically signed by Zonia Benitez DO> Cosigner Signature (if applicable): CC: Mita Morton DO ~ Signed [facility] Work Phone: [phone]) 459-445604-04-2023 History and physical note Author Dr. Pack [facility] May 12, 2022 4:06pm Note Date/Time May 12, 2022 11:2 1am [facility] Medical Records Department [address] [place] [address] [place] [address] H&P Exam - Hospitalist 05/12/22 1115 MR#: [id number] Acct: [id number] Name: PREMA VILLALPANDO Rep #:[id number] : 1940 81 From: Jovi galvez MD PCP: Mita Morton DO Status:ADM WARD Location: [place] [id number] HPI - General General Date of Admission: 05/12/22 HPI Narrative PREMA VILLALPANDO, is a 81 F who presents to the hospital with difficulty swallowing. This has been an ongoing issue she had a previous esophageal dilatation years ago and then had another 1 at a hospital in [place] in January 2022. She has been having [...] discussing the case with the ED physician. [facility] Medical History (Updated 05/12/22 @ 12:41 by Lyn Minor) Anemia Atherosclerotic heart disease of [place] coronary artery without angina pectoris Dementia Diabetes [...] (Auto) 70.4 H, Lymph % (Auto) 17.0 L,Lynn % (Auto) 8.8, Eos % (Auto) 2.9, [...] medications DVT: SCDs 75 minutes was spent [id number], as well as chart review and documentation anddiscussing the case with colleagues Charges/Coding Visit Charges Inpatient E&M: 97580 Init Hosp L3 05/12/22 1606 <Electronically signed by Jovi Pack MD> Cosigner Signature (if applicable): CC: Dr. Jovi Pack MD; Mita Morton DO~ Signed [facility] Work Phone: 1(982) 159-878001-26-2023 Telephone encounter Note* Telephone Encounter - KALYN Fulton CNP - 03/05/2022 11:40 AM EST Spoke to daughter Hossein and relayed the message. She will pickling operator the medication today. [facility] CenterWljrts30-14-3405 Miscellaneous Notes* Telephone Encounter - KALYN Fulton CNP - 03/05/2022 11:40 AM EST Spoke to daughter Hossein and relayed the message. She will pickling operator the medication today. * Telephone Encounter - KALYN Fulton CNP - 03/05/2022 11:32 AM EST SADI I called Donald (pharmacist) at [facility] [address] [facility] [address] #[phone]. The medication (budesonide slurry) is ready for patient to pickling operator. It will be $40 per month. She [...] verified with verbal order by provider into [facility] [address] [facility] [address] #[phone]. Pharmacist stated compoundingpharmacist was not in today, [...] Please call [facility] (surescripts ID: [facility] retail- NOT [facility]) [phone] to request budesonide slurry d/t high cost [...] that Flovent is almost$400 and did not pickling operator. Is there an alternative rx that can [...] daughter and got her scheduled for a JERKER appointment on 03/13/22 at 2:40pm with Huma [...] my schedule to discuss. documented in this [facility]01-26-2023 Telephone encounter Note* Telephone Encounter - KALYN Fulton CNP - 03/05/2022 11:32 AM EST SADI I called Dnoald (pharmacist) at [facility] [address], [facility] [address] #[phone]. The medication (budesonide slurry) is ready for patient to pickling operator. It will be $40 per month. She [...] Yaz calls back and has any questions. [facility] ImagingEfqdaw93-36-2400 Telephone encounter Note* Telephone Encounter - Pau [...] covering medications. Please advise and Thank you [facility] ImagingWyoczx82-18-7553 Miscellaneous Notes* Telephone Encounter - Pau Bar [...] verified with verbal order by provider into [facility] [address] [address] PH#[phone]. Pharmacist stated compoundingpharmacist was not in today, [...] Please call [facility] (surescripts ID: [facility] retail- NOT [facility]) [phone] to request budesonide slurry d/t high cost [...] that Flovent is almost$400 and did not pickling operator. Is there an alternative rx that can [...] daughter and got her scheduled for a JERKER appointment on 03/13/22 at 2:40pm with Huma [...] my schedule to discuss. documented in this encounterSPeoples HospitalGhegmx70-77-5100 Telephone encounter Note* Telephone Encounter - KALYN Fulton CNP - 03/04/2022 12:56 PM EST Please let me know once you talk to the patient's daughter so she is confident on how the patient it to take medication. Thank you! [facility] [id number] Telephone encounter Note* Telephone Encounter - Lupis Connors RN - 03/04/2022 11:55 AM EST Called in rx as written and verified with verbal order by provider into [facility] [address] [place] [address] PH#[phone]. Pharmacist stated compoundingpharmacist was not in today, and will return tomorrow. Pharmacist verified rx, pt information, andstated would return call tomorrow if any issues arise with filling script. Rx admin counseling alsorequested by pharmacist when pt picks up rx. Unable to schedule repeat EGD at this time due to schedule unavailable. [facility] [id number] Telephone encounter Note* Telephone Encounter - KALYN Fulton CNP - 03/04/2022 7:35 AM EST Please call [facility] (surescripts ID: [id number] retail- NOT [facility]) [phone] to request budesonide slurry d/t high cost [...] budesonide suspension. Will need repeat EGD after. [id number] Telephone encounter Note* Telephone Encounter - Lupis Connors RN - 03/03/2022 12:55 PM EST Spoke with pt's daughter, Hossein in regards to rx instructions. Hossein stated that Flovent is almost$400 and did not pickling operator. Is there an alternative rx that can be prescribed for this pt? [facility] [id number] Miscellaneous Notes* Telephone Encounter - Lupis Connors RN - 03/03/2022 12:55 PM EST Spoke with pt's daughter, Hossein in regards to rx instructions. Hossein stated that Flovent is almost$400 and did not pickling operator. Is there an alternative rx that can [...] daughter and got her scheduled for a JERKER appointment on 03/13/22 at 2:40pm with Huma [...] my schedule to discuss. documented in this encounterSPeoples [id number] Telephone encounter Note* Telephone Encounter - Keisha Weiss - 03/02/2022 1:05 PM EST Called pt and left a VM requesting a callback to go over providers recommendations. Callback numberprovided. [facility] [id number] Miscellaneous Notes* Telephone Encounter - Keisha Weiss [...] daughter and got her scheduled for a JERKER appointment on 03/13/22 at 2:40pm with Huma [...] my schedule to discuss. documented in this [facility]01-23-2023 Telephone encounter Note* Telephone Encounter - KALYN Fulton CNP - 03/02/2022 10:20 AM EST Did anyone speak with her about the recommendations? [facility] [id number] Telephone encounter Note* Telephone Encounter - Keisha Weiss - 03/02/2022 8:22 AM EST Called pt and spoke to her daughter and got her scheduled for a JERKER appointment on 03/13/22 at 2:40pm with Huma Meyers. [facility] [id number] Telephone encounter Note* Telephone Encounter - Lupis Connors RN - 02/27/2022 1:49 PM EST Attempted contact with pt in regards to providers' recommendations. No answer. VM left. [facility] [id number] Telephone encounter Note* Telephone Encounter - KALYN [...] new patient on my schedule to discuss. [facility] [id number] Note* Op Note - Lalitha Powell MD - 02/23/2022 7:43 AM EST Endoscopy [facility] Patient Name: Prema Villalpando Procedure Date: 02/23/2022 [...] by the physician, the nurse and the senior system operator in the pre-procedure area in the procedure [...] loss: None. Procedure Code(s): --- Professional --- 09078, Esophagogastroduodenoscopy, flexible, transoral; with transendoscopic balloon dilation of esophagus (less than 30 mm diameter) 78052, 59, Esophagogastroduodenoscopy, flexible, transoral; with biopsy, single or multiple --- Technical --- 40903, Esophagogastroduodenoscopy, flexible, transoral; with transendoscopic balloon dilation of esophagus (less than 30 mm diameter) 38590, 59, Esophagogastroduodenoscopy, flexible, transoral; with biopsy, single or multiple Diagnosis Code(s): --- Professional --- K22.2, Esophageal obstruction K44.9, Diaphragmatic hernia without obstruction or gangrene R13.10, Dysphagia, unspecified --- Technical --- K22.2, Esophageal obstruction K44.9, Diaphragmatic hernia without obstruction or gangrene R13.10, Dysphagia, unspecified CPT copyright 2020 [employer]. All rights reserved. The codes documented in this report are preliminary and upon business services coordinator review may be revised to meet current compliance requirements. Attending Participation: I personally performed the entire procedure. LALITHA Powell MD 02/23/2022 8:09:15 AM This report has been signed electronically. Number of Addenda: 0 Note Initiated On: 02/23/2022 7:43 AM [facility] [id number] Note* Op Note - Lalitha Powell MD - 02/23/2022 7:43 AM EST [facility]: Pre[facility] Procedure Date: 02/23/2022 [...] by the physician, the nurse and the senior system operator in the pre-procedure area in the procedure [...] loss: None. Procedure Code(s): --- Professional --- 32231, Esophagogastroduodenoscopy, flexible, transoral; with transendoscopic balloon dilation of esophagus (less than 30 mm diameter) 40145, 59, Esophagogastroduodenoscopy, flexible, transoral; with biopsy, single or multiple --- Technical --- 18372, Esophagogastroduodenoscopy, flexible, transoral; with transendoscopic balloon dilation of esophagus (less than 30 mm diameter) 59569, 59, Esophagogastroduodenoscopy, flexible, transoral; with biopsy, single or multiple Diagnosis Code(s): --- Professional --- K22.2, Esophageal obstruction K44.9, Diaphragmatic hernia without obstruction or gangrene R13.10, Dysphagia, unspecified --- Technical --- K22.2, Esophageal obstruction K44.9, Diaphragmatic hernia without obstruction or gangrene R13.10, Dysphagia, unspecified CPT copyright 2020 [employer]. All rights reserved. The codes documented in this report are preliminary and upon business services coordinator review may be revised to meet current compliance requirements. Attending Participation: I personally performed the entire procedure. LALITHA Powell MD 02/23/2022 8:09:15 AM This report has been signed electronically. Number of Addenda: 0 Note Initiated On: 02/23/2022 7:43 AM [facility] [id number] Miscellaneous Notes* Op Note - Lalitha Powell MD - 02/23/2022 7:43 AM EST [facility] Name: Prema Villalpando Procedure Date: 02/23/2022 [...] by the physician, the nurse and the senior system operator in the pre-procedure area in the procedure [...] loss: None. Procedure Code(s): --- Professional --- 86277, Esophagogastroduodenoscopy, flexible, transoral; with transendoscopic balloon dilation of esophagus (less than 30 mm diameter) 69727, 59, Esophagogastroduodenoscopy, flexible, transoral; with biopsy, single or multiple --- Technical --- 99120, Esophagogastroduodenoscopy, flexible, transoral; with transendoscopic balloon dilation of esophagus (less than 30 mm diameter) 01501, 59, Esophagogastroduodenoscopy, flexible, transoral; with biopsy, single or multiple Diagnosis Code(s): --- Professional --- K22.2, Esophageal obstruction K44.9, Diaphragmatic hernia without obstruction or gangrene R13.10, Dysphagia, unspecified --- Technical --- K22.2, Esophageal obstruction K44.9, Diaphragmatic hernia without obstruction or gangrene R13.10, Dysphagia, unspecified CPT copyright 2020 [employer]. All rights reserved. The codes documented in this report are preliminary and upon business services coordinator review may be revised to meet current compliance requirements. Attending Participation: I personally performed the entire procedure. LALITHA Powell MD 02/23/2022 8:09:15 AM This report has been signed electronically. Number of Addenda: 0 Note Initiated On: 02/23/2022 7:43 AM documented in this [facility]01-16-2023 History and physical note* Lalitha Powell [...] Take 4 mg by mouth daily. Lancets (Eventstagr.amuch Delica) lancets 30G TEST SUGAR ONCE A [...] capsule Take 1 capsule by mouth daily. Hublished Ultra test strip TEST SUGAR ONCE A [...] proceed with planned procedure. Andre CHRISTIANSEN [facility] [place] Phone: [phone] 864-257901-16-2023 History and physical note* Lalitha Powell MD [...] Take 4 mg by mouth daily. Lancets (Eventstagr.amuch Delica) lancets 30G TEST SUGAR ONCE A [...] capsule Take 1 capsule by mouth daily. Hublished Ultra test strip TEST SUGAR ONCE A [...] Andre CHRISTIANSEN Gastroenterology documented in this [facility]04-27-2021 Hospital Discharge instructions* Instructions* Regina Gamboa RN - 06/04/2020 * Attachments The following attachments cannot be sent through Care Everywhere. * Thyroid: Biopsy: Fine-Needle: Post-op (Bolivian) documented in this encounterSUMMA Work Phone: 1(578) 286-815401-11-2020 Hospital course Narrative* Tj Muniz MD - 02/18/2019 12:17 PM EST Discharge Summary Prema Villalpando : 1940 ADMIT DATE: 02/11/2019 DISCHARGE [...] DISCHARGE MEDICATIONS: Prema Villalpando Home Medication Instructions JENNIFER:[id number] Printed on:02/18/19 6972 Medication Information aspirin 81 MG chewable tablet [...] Complexity: follow up within 7-14 calendar days (82001) [] Severe Complexity: follow up within 7 calendar days (80407) FOLLOW UP TESTING, PENDING RESULTS OR REFERRALS AT TRANSITIONAL CARE VISIT: [] Yes [] No PENDING STUDIES: No DISPOSITION: Home FACILITY/HOME CARE AGENCY NAME: Follow up with Follow-up With Details Why Contact Info Mita Morton DO In [address] [facility] [address] Sahil Anderson MD In 2 weeks [address] [facility] [address] Lisa Smiley MD In 2 weeks [address] [facility] [address] INSTRUCTIONS TO MA/SW: Please call patient on [...] MD 02/18/2019, 12:17 PM documented in this [facility] Work Phone: 1(552) 429-299201-11-2020 History of Present illness Narrative* Sharmila Lr [...] Date 02/18/19 0000 - 02/18/19 2359 Shift 8742-0819 8928-5555 4610-1259 24 Hour Total INTAKE Shift Total(mL/kg) OUTPUT [...] no obvious rashes LABS CBC: Recent Labs 02/16/19 01002/17/19 0042 02/18/19 0032 WBC 22.3* 19.0* 13.1* HGB 12.6 11.6* 11.3* HCT 37.3 34.3* 32.8* PLT 210 244 207 BMP: Recent Labs 02/16/19 0101 02/17/19 0042 NA 140 139 K 4.2 4.1 CL 105 106 CO2 25 24 BUN 13 21* CREATININE 0.74 0.81 GLUCOSE 182* 125* Hepatic: Recent Labs 02/16/19 01002/17/19 0042 AST 100* 62* ALT 81* 60 [...] 02/17/2019 3:22 PM EST Physical Therapy Facility/Department: [facility] MED SURG PT REEVALUATION NAME: Prema Villalpando [...] AM-PAC Inpatient Mobility Raw Score : 18 (02/13/19 172) AM-PAC Inpatient T-Scale Score : 43.63 (02/13/191721) [...] EST Hospitalist Progress Note 02/17/2019 9:03 AM [phone]: Please page me for patient care issues. [phone]: Please page [facility] night Hospitalist for any issues. Subjective: Admit Date: 02/11/2019 PCP: MITA MORTON DO Room#: [id number] Interval History: Patient seen and examined No [...] of Hospitalist Medicine Inpatient Medical Services PAGER: [phone] * Sharmila Lr MD - 02/17/2019 6:41 [...] Date 02/17/19 0000 - 02/17/19 2359 Shift 8600-5775 7571-8571 3508-3319 24 Hour Total INTAKE Shift Total(mL/kg) OUTPUT [...] PLT 223 210 244 BMP: Recent Labs 02/15/191702/16/1910002/17/1941 NA 141 140 139 K 4.0 4.2 4.1 CL 104 105 106 CO2 28 25 24 BUN 10 13 21* CREATININE 0.87 0.74 0.81 GLUCOSE 110* 182* 125* Hepatic: Recent Labs 02/15/191702/16/1910002/17/1941 AST 80* 100* 62* ALT 76* 81* [...] Anderson MD - 02/17/2019 4:58 PM EST [facility] - Surgery [facility] Physicians Surgery Patient Name: Prema Villalpando [...] High Nutrient Needs: Estimated Daily Total Kcal: 4400-1888 (25-28) Estimated Daily Protein (g): 51-61 (1.0-1.2) [...] 6 months: (08/13/18) 139# --> (02/12/19) 113# [place] Body Wt: 100 lb (45.4 kg), BMI [...] Weight, Monitor Bowel Function Contact Number: pager [phone] * Carina Ovalles, OT - 02/16/2019 11:29 [...] Prognosis: Good Decision Making: Low Complexity Exam: [facility] OT Education: OT Role;Plan of Care;ADL [...] Ambulation Assistance: Independent Transfer Assistance: Independent Active Dancing Master: Yes Mode of Transportation: Car Occupation: Retired [...] Home Management Training, Cognitive/Perceptual Training OutComes Score AM-[facility] Daily Activity Inpatient How much [...] How much help for eating meals?: None AM-[facility] Inpatient Daily Activity Raw Score: 21 AM-[facility] Inpatient ADL T-Scale Score : [...] Plan of [facility]. Carina Ovalles OTR/L * Debbi Walters RN - 02/16/2019 11:18 AM EST Lipase high at 1,101. Dr. Muniz paged to notify. Lila Funk PA-C also notified per Dr. Muniz request. * bK Hamlin RCP - 02/16/2019 10:19 AM EST [...] EST Hospitalist Progress Note 02/16/2019 8:32 AM [phone]: Please page me for patient care issues. [phone]: Please page [facility] night Hospitalist for any issues. Subjective: Admit Date: 02/11/2019 PCP: MITA MORTON DO Room#: [id number] Interval History: Patient seen and examined No [...] times per day LABS: CBC: Recent Labs 02/15/198 02/16/19 010 WBC [...] -- 8 11 LIVER PROFILE: Recent Labs 02/15/198 02/16/19 010 AST 80* 100* ALT 76* 81* [...] of Hospitalist Medicine Inpatient Medical Services PAGER: [phone] Addendum patient was complaining of abdominal pain [...] EST Hospitalist Progress Note 02/15/2019 8:29 AM [phone]: Please page me for patient care issues. [phone]: Please page [facility] night Hospitalist for any issues. Subjective: Admit Date: 02/11/2019 PCP: MITA MORTON DO Room#: [id number] Interval History: Patient seen and examined No [...] 7 -- 8 LIVER PROFILE: Recent Labs 02/13/19 0051 02/15/19 0018 AST 62* 80* ALT 66 76* [...] of Hospitalist Medicine Inpatient Medical Services PAGER: [phone] * Carina Ovalles OT - 02/15/2019 7:10 AM EST Occupational Therapy OT Hold Note OT eval and treat orders received. Pt is scheduled for ERCP and cholecystectomy today. Will hold OTeval until after surgery. Carina Ovalles OTR/L * Tj Muniz MD - 02/14/2019 12:11 PM EST Hospitalist Progress Note 02/14/2019 12:11 PM [phone]: Please page me for patient care issues. [phone]: Please page [facility] night Hospitalist for any issues. Subjective: Admit Date: 02/11/2019 PCP: MITA MORTON DO Room#: [id number] Interval History: Patient seen and examined No [...] of Hospitalist Medicine Inpatient Medical Services PAGER: [phone] * Lila Vance PA-C - 02/14/2019 10:02 [...] reviewed with the patient. CBC: Recent Labs 02/12/19 0054 02/13/19 005 WBC 5.5 5.7 RBC 3.37* 3.48* [...] 02/13/2019 5:21 PM EST Physical Therapy Facility/Department: [facility] MED SURG Initial Assessment NAME: Prema Villalpando [...] Ambulation Assistance: Independent Transfer Assistance: Independent Active Dancing Master: Yes Mode of Transportation: Car Occupation: Retired [...] Timed Code Treatment Minutes: (low eval) Iesha Loya, PT * Yaz De La Torre MS, RD, LD - 02/13/2019 12:42 PM [...] High Nutrient Needs: Estimated Daily Total Kcal: 0333-3820 (25-28) Estimated Daily Protein (g): 51-61 (1.0-1.2) [...] 6 months: (08/13/18) 139# --> (02/12/19) 113# [place] Body Wt: 100 lb (45.4 kg), BMI [...] Constipation, Monitor Bowel Function Contact Number: pager [phone] * Lila Vance PA-C - 02/13/2019 10:50 [...] patient. CBC: Recent Labs 02/11/19 0726 02/12/19 0054 02/13/19 0051 WBC 9.9 5.5 5.7 RBC 3.60* 3.37* 3.48* HGB 11.8 11.1* 11.6* HCT 34.8* 32.5* 32.8* MCV 96.7 96.5 94.4 MCH 32.7 33.0 33.3 MCHC 33.9 34.2 35.2 RDW 12.4 12.4 12.3 PLT 193 163 196 MPV 10.0 10.3 10.1 CMP: Recent Labs 02/11/19 0726 02/12/19 0054 02/13/19 0051 NA 142 142 142 K 3.7 3.6 [...] EST Hospitalist Progress Note 02/13/2019 8:42 AM [phone]: Please page me for patient care issues. [phone]: Please page [facility] night Hospitalist for any issues. Subjective: Admit Date: 02/11/2019 PCP: MITA MORTON DO Room#: [id number] Interval History: Patient seen and examined No [...] Intravenous Q8H LABS: CBC: Recent Labs 02/11/19 0726 02/12/19 0054 02/13/19 0051 WBC 9.9 5.5 5.7 RBC 3.60* 3.37* 3.48* HGB 11.8 11.1* 11.6* HCT 34.8* 32.5* 32.8* MCV 96.7 96.5 94.4 RDW 12.4 12.4 12.3 PLT 193 163 196 BMP: Recent Labs 02/11/19 0702/12/194 02/13/19 005 NA 142 142 142 K 3.7 3.6 3.4* CL 111* 110* 108* CO2 27 27 26 BUN 15 11 6* CREATININE 0.72 0.78 0.68 GLUCOSE 120* 84 93 CALCIUM 8.9 8.8 9.0 ANIONGAP 5 4 7 LIVER PROFILE: Recent Labs 02/11/19 0702/12/194 02/13/19 005 AST 76* 87* 62* ALT 64 [...] of Hospitalist Medicine Inpatient Medical Services PAGER: [phone] * Sonny Peres MD - 02/12/2019 10:47 AM EST Hospitalist Progress Note 02/12/2019 10:48 AM Subjective: Admit Date: 02/11/2019 PCP: MITA MORTON DO Interval History: No overnight issues. Pt denies any abdominal pain DIET FULL LIQUID; Date 02/12/19 0000 - 02/12/19 2359 Shift 2701-3588 2887-5382 9419-0254 24 Hour Total INTAKE P.O.(mL/kg/hr) 0(0) 0 [...] Date PHART 7.464 08/05/2018 PO2ART 113.3 08/05/2018 BZP5EOV 32.7 08/05/2018 Recent Labs 02/11/19 1100 02/12/19 [...] If patient is beta-lactam allergic, please call [facility] Microbiology lab ([phone]) within 2 days to request susceptibility testing. [...] Code Discharge planning: TBD Sonny Peres MD [facility] Hospitalist * Devan Fitzgerald MD - 02/11/2019 [...] or concerns. -2 Department of General Surgery #[id number] documented in this encounterSUMMA Work Phone: [phone] Hospital Discharge instructions* Discharge Instr - Activity* [...] most local grocery stores, pharmacies, and chain [employer]-stores. ? If you have any questions about your diet or nutrition, call the hospital and ask for the dietitian. Cardiac diet * Attachments The following attachments cannot be sent through Care Everywhere. * Cholecystectomy: Post-op (Bolivian) documented in this encounterSUMMA Work Phone: Evaluation [...] Work Phone: Evaluation noteNo assessment information available [facility] Work Phone: Evaluation note* Diagnosis 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) documented in this encounter [facility] Work Phone: evaluation note* Diagnosis Onset Date Resolution Status Dysphagia acute History of esophageal stricture acute History of hypertension acut e [facility] Work Phone: evaluation note* Diagnosis Other specified symptoms and signs involving the circulatory and respiratory systems documented in this encounter [facility]* Diagnosis Anemia- Primary Unspecified anemia Anemia Unspecified anemia Hyponatremia Hyposmolality and/or hyponatremia Hepatitis Unspecified hepatitis documented in this encounter [facility]* Diagnosis Coronary 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- Primary Persistent atrial fibrillation (HCC) Atrial fibrillation Mixed hyperlipidemia documented in this encounter [facility]* Diagnosis Other specified symptoms and signs involving the circulatory and respiratory systems- Primary Other specified symptoms and signs involving the circulatory and respiratory systems documented in [facility] Diagnosis Other specified abnormal findings of blood chemistry documented [facility]* Diagnosis Other persistent atrial fibrillation (HCC)- Primary documented in [facility]* Diagnosis Hyperlipidemia, unspecified- Primary documented in [facility]* Diagnosis Onset Date Resolution Status Dysphagia acute Alzheimer's dementia chronic [facility] Work Phone: evaluation note* Diagnosis Injury of head, initial encounter- Primary [facility] Diagnosis Dorsalgia, unspecified- Primary Unspecified urinary incontinence documented in this encounter [facility]* Diagnosis Coronary 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- Primary Persistent atrial fibrillation (HCC) Atrial fibrillation Mixed hyperlipidemia Vascular dementia, unspecified dementia severity, unspecified whether behavioral, psychotic, or mood disturbance or anxiety (HCC) [facility] Diagnosis Other specified abnormal findings of blood chemistry documented [facility] Diagnosis Other specified diseases of liver documented in [facility]* Diagnosis Dysphagia Esophageal obstruction Stricture and stenosis of esophagus Dementia (HCC) Other persistent mental disorders due to conditions classified elsewhere Stented coronary artery Postsurgical percutaneous transluminal coronary angioplasty status documented in this encounter [facility]* Diagnosis Eosinophilic esophagitis- Primary documented in this encounter [facility] note* Diagnosis Eosinophilic esophagitis- Primary documented in this encounter [facility] note* Diagnosis Eosinophilic esophagitis- Primary documented in this encounter [facility]* Diagnosis Eosinophilic esophagitis- Primary documented in this encounter [facility]* Diagnosis Other specified abnormal findings of blood chemistry- Primary Other specified abnormal findings of blood chemistry documented in this encounter [facility] note* Diagnosis Other specified abnormal findings of blood chemistry- Primary Other specified abnormal findings of blood chemistry documented in this encounter [facility]* Diagnosis Other specified diseases of liver- Primary Other specified diseases of liver documented in this encounter [facility] note* Diagnosis Coronary 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- Primary Persistent atrial fibrillation (HCC) Atrial fibrillation Mixed hyperlipidemia documented in this encounter [facility] Discharge instructions* Instructions* Juanis Maldonado V., RN [...] mild sore throat. You may use an reui-gzr-dgehtxb chloraseptic spray, gargle with warm salt water, [...] an upset belly after: o Coffee o Sarpy fruits and juices o Tomato products o [...] 2013-11-16 Last Updated 02/15/16 documented in this [facility] Work Phone: Hospital Discharge instructions* Attachments The following attachments cannot be sent through Care Everywhere. * Upper GI Endoscopy Discharge Instructions (Bolivian) documented in this [facility] (narrative)No reason for referral information availableSan [facility] Work Phone: Reason for visit Narrative* Imaging (Routine) - Closed Specialty Diagnoses / Procedures Referred By Elzbieta t Referred To Contact Radiology Diagnoses Other specified diseases of liver Procedures MR abdomen w and wo contrast Mita Morton, DO [address] [place] [address] Phone: tel: fax: [facility] MRI [address] [place] [address] Phone: tel: Referral ID Status Reason Start Date Expiration Date Visits Re quested Visits Authorized [id number] Closed 12/01/2023 11/30/2024 1 1 [facility] History of Present Illness * [...] current CBC. Discussed with patient, daughter, and nurse staff. Will continue to monitor. OK to discharge [...] of bowel prep for colonoscopy tomorrow. No vector control specialist concerns at this time. * Haily Mcghee [...] 15 08/05/2018 Lab Results Component Value Date [id number] 815 08/06/2018 Lab Results Component Value Date FOLATE >20.0 08/06/2018 LDH 182 ASSESSMENT AND PLAN Review of records from [facility] reveals that patient did in fact receive complete course of Venoferinfusions - the last being 09/06/2018. Colonoscopy tomorrow. RBC morphology still pending. Discussedwith patient and nurse staff. Will continue to monitor. Total visit time > 35 minutes. * Lucinda Madison, DATA PROCESSING CLERK - 09/20/2018 1:00 PM EDT Physical Therapy Facility/Department: [facility] Daily Treatment Note NAME: Prema Villalpando [...] GBS colonization of urine 8. Hx of CAD/OR/stents recently on ASA and Plavix, Cardiology will not agree to withholding either at this time 9. Hx of anemia and transfusions, ? of MDS, will re-consult Dr. Amin 10. Vaginal bleeding, consult PICTURE ENGRAVER no workup needed Plan Colonoscopy tomorrow Advance Directive: Full Code DVT prophylaxis scd's Active Problems: Coronary 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 Abdominal pain Resolved [...] data in the 24 hours ending 09/19/18 7008 GENERAL: Pleasant and NAD. HEENT: NCAT, PERRLA, [...] 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 Abdominal pain Resolved [...] 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 Abdominal pain Resolved Problems: * No resolved hospital problems. * DIMITRIS CAVAZOS MD * Obdulio Crenshawole Silvia, HYDROGEN POWER PLANT MANAGER - CITY PLANNING AIDE - 09/19/2018 11:46 AM EDT CARDIOLOGY PROGRESS [...] 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 Abdominal pain Resolved [...] dizziness, syncope and light-headedness. VITAL SIGNS: Vitals: 09/18/18202719 2334 09/19/18 0404 09/19/18 0743 BP: 122/61 133/74 (!) 140/86 (!) 150/78 Pulse: 89 82 92 101 Resp: 16 Temp: 98.1 F (36.7 C) 97.9 F [...] collapses by greater than 50% with inspiration. [facility]: 08/04/2018 1. Acute coronary syndrome. Reperfusion was [...] team, GI and heme/onc Vaginal bleeding - PICTURE ENGRAVER consulted Dispo: will continue to follow Electronicallysigned [...] GLUCOSE 141* 133* 125* Hepatic: Recent Labs 09/17/18 0431 09/18/18 0352 09/19/18 [...] due to elevated lipase over weekend - PICTURE ENGRAVER consulted for vaginal bleeding - Regular Diet - prn pain/nausea medication - activity as tolerated - disposition: stable from surgery standpoint, continue po ABX,, f/u with Dr. Ash in 1 month Patient counseled on risks, benefits, and alternatives of treatment plan today. Patient states an understanding and willingness to proceed with plan. Betsy Reeves PA-C Personal Pager [phone] [facility] Surgery Pager [phone] during hours 7:30a-4:30p Wednesday-Wednesday After hours, please contact physician low vision therapist. * Seema Schwarz MD - 09/18/2018 2:38 PM EDT Progress Note 09/18/2018 2:38 PM Subjective: Admit Date: 09/15/2018 PCP: MITA MORTON DO Interval History: Patient was seen [...] 40 mg Oral QAM AC Recent Labs 09/16/186 09/18/18 0352 WBC 8.1 8.9 HGB 11.3* [...] GBS colonization of urine 8. Hx of CAD/OR/stents recently on ASA and Plavix, Cardiology will not agree to withholding either at this time 9. Hx of anemia and transfusions, ? of MDS, will re-consult Dr. Amin 10. Vaginal bleeding, consult PICTURE ENGRAVER Advance Directive: Full Code DVT prophylaxis scd's Discharge planning: home Active Problems: Coronary 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 Abdominal pain Resolved Problems: * No resolved hospital problems. * Seema Schwarz MD * Franklin Aviles, PT - 09/18/2018 10:32 AM EDT Physical Therapy Facility/Department: [facility] Daily Treatment Note NAME: Prema Villalpando [...] training) Franklin Aviles PT * Noelle Manrique, HYDROGEN POWER PLANT MANAGER - CITY PLANNING AIDE - 09/18/2018 10:21 AM EDT CARDIOLOGY PROGRESS NOTE Chart and interval events reviewed. Reason for Visit hospital follow up CAD SUBJECTIVE: Prema Villalpando states abd pain resolved. No CP (was anginal sx w/OR), palpitations, dizziness, syncope. Up in chair in [...] 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 Abdominal pain Resolved [...] had rectal or vaginal bleeding. Had -ve vector control specialist eval 1 week ago. Was treated with [...] per surgery and cardiology due to recent OR, stents, anticoag. Begin Yeny in the interim. [...] 36.2 PLT 275 247 281 Recent Labs 09/16/1844509/17/18 0431 09/18/18 0352 NA 135 139 136 [...] prn pain/nausea medication - activity as tolerated Pager:[phone] Associated attestation - Donald Ash MD - [...] High Nutrient Needs: Estimated Daily Total Kcal: 4384-1833 Estimated Daily Protein (g): 55-66 Nutrition Diagnosis: [...] , 12.9% wt loss in 2 mo [place] Body Wt: 115 lb (52.2 kg), % [place] Body 106% BMI Classification: BMI 18.5 - [...] They would most likely benefit from a dairy manager consult. Spoke to Dr. Schwarz re: family and pt. Concerns. He reported placing a consult in for them. Thania Roldan OT * Seema Schwarz MD - 09/17/2018 1:59 PM EDT Progress Note 09/17/2018 1:59 PM Subjective: Admit Date: 09/15/2018 PCP: MITA MORTON, DO Interval History: Patient is comfortable and [...] 40 mg Oral QAM AC Recent Labs 09/15/18135409/16/18 0446 WBC 8.8 8.1 HGB 12.0 11.3* PLT 275 247 Recent Labs 09/15/18 13509/16/18 0446 09/17/18 0431 NA 139 135 139 [...] GBS colonization of urine 7. Hx of CAD/OR/stents recently on ASA and Plavix, Cardiology will [...] Date 09/17/18 0000 - 09/17/18 2359 Shift 9870-0146 6292-9925 3970-8519 24 Hour Total INTAKE I.V.(mL/kg) 900(16.2) 900(16.2) Shift Total(mL/kg) 900(16.2) 900(16.2) OUTPUT Urine(mL/kg/hr) 800 800 Shift Total(mL/kg) 800(14.4) 800(14.4) Weight (kg) 55.6 55.6 55.6 55.6 I/O last 3 completed shifts: In: 1740 [P.O.:840; I.V.:900] Out: 1625 [Urine:1625] No intake/output data recorded. Data Recent Labs 09/15/18 13509/16/18 0446 WBC 8.8 8.1 HGB 12.0 11.3* [...] need for surgical intervention; patient recently had OR with 2x stents in August 04 2018, on dual antiplatelet therapy. - Epigastric/RUQ abdominal pain resolved - Regular Diet - Attempt non-operative management secondary to recent stents, start PO Augmentin - HIDA scan cancelled - GI following - prn pain/nausea medication - activity as tolerated Pager:[phone] * Dimitris Cavazos MD - 09/16/2018 3:09 [...] 09/16/2018 11:21 AM EDT Patient arrived to [facility] for her Hida Scan. Her IV [...] 09/16/2018 10:15 AM EDT Physical Therapy Facility/Department: [facility] Initial Assessment NAME: Prema Villalpando : [...] Care;General Safety Barriers to Learning: Pt is DOUGL[place] which may impact her ability to learn [...] Left in bed, Nurse notified OutComes Score [facility] Mobility Inpatient How much difficulty [...] climbing 3-5 steps with a railing?: Total [facility] Inpatient Mobility Raw Score : 16 [facility] Inpatient T-Scale Score : 40.78 Mobility Inpatient CMS 0-100% Score: 54.16 Mobility Inpatient CMS G-Code Modifier : CK [facility] Score [facility] Inpatient Mobility Raw Score : 16 (09/16/181004) [facility] Inpatient T-Scale Score : 40.78 (09/16/181004) Mobility [...] Group Co-treatment Time In 913 Time Out 0932 Minutes 18 Amelia Gonzalez PT, DPT documented in this encounter* Edis Paz RN - 11/09/2019 11:15 AM EDT Ultrasound: This [...] 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 Iron deficiency anemia Iron deficiency anemia, unspecified Diagnosis Coronary 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 Dyslipidemia Other and unspecified hyperlipidemia Diagnosis Nontoxic single thyroid nodule Nontoxic uninodular goiter Diagnosis Thyroid nodule Nontoxic uninodular goiter Advance Directives No Advanced Directives Records FoundDocuments on File Type Date Recorded Patient Roll Examiner Expl anation Advance Directives and Livin g Will Advance Directives and Livin g Will 08/09/2018 2:28 PM Advance Directives and Livin g Will 08/19/2018 2:08 PM Power of Utilities Manager Latest Code Status on File Code Status Date Activated Date Inactivated Comments Full Code 09/15/2018 1:35 PM Full Code 08/04/2018 8:50 PM 08/08/2018 6:48 PM Full Code 08/04/2018 8:50 PM 08/04/2018 8:50 PM Documents on File Type Date Recorded Patient Roll Examiner Expl anation Advance Directives and Livin g Will Advance Directives and Livin g Will 08/09/2018 2:28 PM Advance Directives and Livin g Will 08/19/2018 2:08 PM Advance Directives and Livin g Will 02/22/2019 10:08 AM Advance Directives and Livin g Will 03/09/2019 1:06 PM Power of Utilities Manager Latest Code Status on File Code Status Date Activated Date Inactivated Comments Full Code 02/14/2019 10:08 AM 02/18/2019 4:36 PM Full Code 02/11/2019 12:28 PM 02/14/2019 10:08 AM Full Code 09/15/2018 1:35 PM 09/21/2018 7:54 PM Documents on File Type Date Recorded Patient Roll Examiner Expl anation Advance Directives and Livin g Will Advance Directives and Livin g Will 08/09/2018 2:28 PM Advance Directives and Livin g Will 08/19/2018 2:08 PM Advance Directives and Livin g Will 02/22/2019 10:08 AM Advance Directives and Livin g Will 03/09/2019 1:06 PM Advance Directives and Livin g Will 04/05/2019 3:18 PM Power of Utilities Manager Documents on File Type Date Recorded Patient Roll Examiner Expl anation ACP-Advance Directive ACP-Advance Directive 08/09/2018 2:28 PM ACP-Advance Directive 08/19/2018 2:08 PM ACP-Advance Directive 02/22/2019 10:08 AM ACP-Advance Directive 03/09/2019 1:06 PM ACP-Advance Directive 04/05/2019 3:18 PM ACP-Power of Utilities Manager Documents on File Type Date Recorded Patient Roll Examiner Expl anation ACP-Advance Directive ACP-Advance Directive 08/09/2018 2:28 PM ACP-Advance Directive 08/19/2018 2:08 PM ACP-Advance Directive 02/22/2019 10:08 AM ACP-Advance Directive 03/09/2019 1:06 PM ACP-Advance Directive 04/05/2019 3:18 PM ACP-Power of Utilities Manager Latest Code Status on File Code Status Date Activated Date Inactivated Comments Full Code 02/14/2019 10:08 AM 02/18/2019 4:36 PM Full Code 02/11/2019 12:28 PM 02/14/2019 10:08 AM Full Code 09/15/2018 1:35 PM 09/21/2018 7:54 PM Full Code 08/04/2018 8:50 PM 08/08/2018 6:48 PM Full Code 08/04/2018 8:50 PM 08/04/2018 8:50 PM Documents on File Type Date Recorded Patient Roll Examiner Expl anation ACP-Advance Directive ACP-Power of Utilities Manager ACP-Advance Directive 04/05/2019 3:18 PM ACP-Advance Directive 03/09/2019 1:06 PM ACP-Advance Directive 02/22/2019 10:08 AM ACP-Advance Directive 08/19/2018 2:08 PM ACP-Advance Directive 08/09/2018 2:28 PM Latest Code Status on File Code Status Date Activated Date Inactivated Comments Full Code 02/14/2019 10:08 AM Documents on File Type Date Recorded Patient Roll Examiner Expl anation Advance Directives and Livin g Will Advance Directives and Livin g Will 08/09/2018 2:28 PM Advance Directives and Livin g Will 08/19/2018 2:08 PM Advance Directives and Livin g Will 02/22/2019 10:08 AM Power of Utilities Manager Advance Directive Response Recorded Date/ Time Living Will No February 10 3:40pm Power of Utilities Manager Yes February 10 3:40pm Advance Directive Response Recorded Date/ Time Name of Medical Power of Utilities Manager Hossein [email or web address] May 12, 2022 12:29pm Living Will Yes May 12, 2022 12:29pm Power of Utilities Manager Yes May 12 12:29pm Advance Directive Response Recorded Date/ Time Name of Medical Power of Utilities Manager Hossein [email or web address] May 12, 2022 12:29pm Name of Medical Power of Utilities Manager HOSSEIN RIVAS June 01, 2022 8:32pm Living Will Yes June 01, 2022 8:32pm Power of Utilities Manager Yes June 01 8:32pm Documents on File Type Date Recorded Patient Roll Examiner Expl anation Advance Directives and Living Will 04/04/2019 Advance Directives and Living Will 03/07/2019 Advance Directives and Living Will 02/11/2019 Latest Code Status on File Code Status Date Activated Date Inactivated Comments Full Code 06/13/2022 4:30 PM Healthcare Agents on File Name Relationship Healthcare Agent Relationshi p Communication [facility] Documents on File Type Date Recorded Patient Roll Examiner Expl anation Advance Directives and Living Will 04/04/2019 Advance Directives and Living Will 03/07/2019 Advance Directives and Living Will 02/11/2019 Latest Code Status on File Code Status Date Activated Date Inactivated Comments Full Code 06/13/2022 4:30 PM 06/16/2022 10:36 PM Healthcare Agents on File Name Relationship Healthcare Agent Relationshi p Communication [facility] Healthcare Agents on File Name Relationship Healthcare Agent Relationshi p Communication [facility] Healthcare Agents on File Name Relationship Healthcare Agent Relationshi p Communication Hossein Maguireali Child Health Care Agent Latest Code Status on File Code Status Date Activated Date Inactivated Comments Full Code 06/13/2022 4:30 PM 06/16/2022 10:36 PM Healthcare Agents on File Name Relationship Healthcare Agent Relationshi p Communication Hossein Maguireali Child Health Care Agent Healthcare Agents on File Name Relationship Healthcare Agent Relationshi p Communication Hossein Maguireali Child Health Care Agent [phone] (Home) Healthcare Agents on File Name Relationship Healthcare Agent Relationshi p Communication Hossein Maguireali Child Health Care Agent [id number] [id number] (Home) Advance Directive Response Recorded Date/ Time Living Will Yes June 01, 2022 8:32pm Power of Utilities Manager Yes June 01 8:32pm Healthcare Agents on File Name Relationship Healthcare Agent Relationshi p Communication Hossein Maguireali Child Health Care Agent [phone] (Home) Healthcare Agents on File Name Relationship Healthcare Agent Relationshi p Communication Hossein Maguireali Child Health Care Agent [phone] (Home) Healthcare Agents on File Name Relationship Healthcare Agent Relationshi p Communication Hossein Maguireali Child Health Care Agent [id number] [id number] (Home) Healthcare Agents on File Name Relationship Healthcare Agent Relationshi p Communication Hossein Maguireali Child Health Care Agent [phone] (Home) Advance Directive Response Recorded Date/ Time Name of Medical Power of Utilities Manager DAUGHTER December 29, 2022 12:22pm Living Will Yes December 29, 2 023 12:22pm Power of Utilities Manager Yes December 29, 2022 12:22pm Advance Directive Response Recorded Date/ Time Name of Medical Power of Utilities Manager DAUGHTER December 29, 2022 12:22pm Name of Medical Power of Utilities Manager daughter April 04, 2023 11:12am Living Will Yes April 04, 2 024 11:12am Power of Utilities Manager Yes April 04, 2023 11:12am Healthcare Agents on File Name Relationship Healthcare Agent Relationshi p Communication Hossein Demali Child Health Care Agent Healthcare Agents on File Name Relationship Healthcare Agent Relationshi p Communication Hossein Maguireali Child Health Care Agent [email or web address] Date Activated Date Inactivated Comments 06/13/2022 4:30 PM 06/16/2022 10:36 PM Healthcare Agents on File Name Relationship Healthcare Agent Relationshi p Communication Hossein Maguireali Child Health Care Agent Healthcare Agents on File Name Relationship Healthcare Agent Relationshi p Communication Hossein Maguireali Child Health Care Agent Healthcare Agents on File Name Relationship Healthcare Agent Relationshi p Communication Hossein Rivas Child Health Care Agent [email or web address] Date Activated Date Inactivated Comments 06/13/2022 4:30 PM 06/16/2022 10:36 PM Healthcare Agents on File Name Relationship Healthcare Agent Relationshi p Communication Hossein Maguireali Child Health Care Agent Healthcare Agents on File Name Relationship Healthcare Agent Relationshi p Communication Hossein Maguireali Child Health Care Agent Healthcare Agents on File Name Relationship Healthcare Agent Relationshi p Communication Hossein Maguireali Daughter Health Care Agent [email or web address] Summary Purpose Family History No Family History Records Found Relationship Condition Age at Onset Recorded Date/T ranjana Not Specified Unknown Reason for Referral Status Reason Specialty Diagnoses / Procedures Referre d By Contact Referred To Contact Open Radiology Diagnoses Thyroid nodule Procedures US FINE NEEDLE ASPIRATION Zoe Wyatt APRN - CITY PLANNING AIDE [address] [facility] [address] [place] [address] Status Reason Specialty Diagnoses / Procedures Referre d By Contact Referred To Contact Open Radiology Diagnoses Thyroid nodule Procedures US Thyroid Zoe Wyatt APRN - CITY PLANNING AIDE [address] [facility] [address] [place] [address] Status Reason Specialty Diagnoses / Procedures Referre d By Contact Referred To Contact Open Radiology Diagnoses Left thyroid nodule Procedures US GUIDED THYROID BIOPSY PERCUTANEOUS Betsy Reeves PA-C [address] [facility] [address] [place] [address] Specialty Diagnoses / Procedures Referred By Elzbieta t Referred To Contact Cardiology Diagnoses Other specified symptoms and signs involving the circulatory and respiratory systems Procedures Vascular US carotid artery duplex bilateral Mita Morton, DO [address] [place] [address] Referral ID Status Reason Start Date Expiration Date Visits Requested Visits Authorized [id number] Pending Review Perform Procedure 05/27/2022 11/23/2022 1 1 Discharge Instructions * Attachments The following attachments cannot be sent through Care Everywhere. * Thyroid: Biopsy: Fine-Needle: Post-op (Bolivian) * Thyroid Nodules (Bolivian) documented in this encounter Chief Complaint and [...] Dysphagia Alzheimer's dementia Chief Complaint Admit Date LONGTERM LAB WORK March 16, 2024 5:00am MONTHLY EXAM March 21, 2024 2:27pm MONTHLY EXAM April 10, 2024 2:51 pm MONTHLY EXAM May 09, 2024 4:31 pm Chief Complaint Admit Date MONTHLY EXAM May 09, 2024 4:31 pm LABWORK June 12, 2024 5:00am needs to schedule esophagus stretching J [facility] 2024 9:09am Chief Complaint Admit Date MONTHLY EXAM May 09, 2024 4:31 pm LABWORK June 12, 2024 5:00am MONTHLY/ADMISSION EXAM June 20, 2024 10 :15pm needs to schedule esophagus stretching Mirna jw 2024 9:09am Reason for Visit Admit [...] jw 2024 9:09am Chief Complaint Admit Date LABWORK June 12, 2024 5:00am MONTHLY/ADMISSION EXAM June 20, 2024 10 :15pm NEW CONCERN July 17, 2024 4:45p m MONTHLY EXAM July 25, 2024 6:00 pm Monthly Exam August 08, 2024 9:26p m LABWORK August 09, 2024 5:00a m LABWORK August 18, 2024 5:00 am needs to schedule esophagus stretching J jw 2024 9:09am LONGTERM LAB WORK September 14, 2024 4 :00am Additional Source Comments INFORMATION SOURCE (unrecogn ized section and content) DATE CREATED AUTHOR 03/21/2019 [facility] DATE CREATED AUTHOR AUTHOR'S ORGANIZ ATION 07/01/2019 [facility] DATE CREATED AUTHOR AUTHOR'S ORGANIZ ATION 10/07/2019 [facility] DATE CREATED AUTHOR AUTHOR'S ORGANIZ ATION 12/02/2019 [facility] ([place] DATE CREATED AUTHOR AUTHOR'S ORGANIZ ATION 05/16/2021 [facility] DATE CREATED AUTHOR AUTHOR'S ORGANIZ ATION 08/23/2024 [facility] DATE CREATED AUTHOR AUTHOR'S ORGANIZ ATION 10/04/2024 [facility] Reason for Visit (unrecogniz ed section and content) Reason Comments Other transfer. Dx with ch olecystitis Specialty Diagnoses / Procedures Referred By Contac t Referred To Contact Cardiology Diagnoses Other specified symptoms and signs involving the circulatory and respiratory systems Procedures Vascular US carotid artery duplex bilateral Mita Morton, DO [address] [place] [address] Referral ID Status Reason Start Date Expiration Date Visits Requested Visits Authorized [id number] Pending Review Perform Procedure 05/27/2022 11/23/2022 1 1 Reason Comments Leg Swelling Specialty Diagnoses / Procedures Referred By Contac t Referred To Contact Diagnoses Hyponatremia Anemia Hepatitis Procedures . Mita Morton, DO [address] [place] [address] [facility] [address] [place] [address] Referral ID Status Reason Start Date Expiration Date Visits Re quested Visits Authorized [id number] 1 1 Reason Comments Med Refill Reason Comments 1 Year Follow-up Coronary Artery Disease Reason Onset Date Comments Cardiac Clearance 12/09/2022 Reason Onset Date Comments Fall 07/20/2023 Reason Onset Date Comments Cardiac Clearance 07/23/2023 Specialty Diagnoses / Procedures Referred By Contac t Referred To Contact Diagnoses Dysphagia Dysphagia [R13.10] Procedures TX ESOPHAGOGASTRODUODENOSCOPY TRANSORAL DIAGNOSTIC EGD DIAGNOSTIC Lalitha Powell MD [address] [place] [address] [facility] [address] [place] [id number] Referral ID Status Reason Start Date Expiration Date Visits Re quested Visits Authorized [id number] 1 1 Reason Onset Date Comments Medication [...] Care Teams (unrecognized sec tion and content) Science Consultant Relationship Specialty Start Date End Date Mita Morton DO [address] [place] [address] PCP - General 09/05/18 Team Status: Active Member Role Status Dates Dr. Mita Morton , Family Provider Active Dr. Mita Morton , DO Primary Care Provider Active Team Status: Active Member Role Status Dates Dr. Mita Morton , Primary Care Provider Active Dr. Zonia Benitez , DO Emergency Provider Active Dr. Jovi Pack MD Admit Provi ailyn, Attending Provider, Other Provider Active Team Status: Active Member Role Status Dates Dr. Mita Morton DO Primary Care Provider Active Dr. Zonia Benitez , Emergency Provider Active Dr. Jovi Pack MD Admit Provider, Other Pro vider Active Dr. Roque Herrera , DO Attending Provider Active Team Status: Active Member Role Status Dates Dr. Mita Morton DO Primary Care Provider Active Dr. Roque Herrera , DO Attending Provider Active Team Status: Inactive Member Role Status Dates Dr. Mita Morton DO Primary Care Provider Active Dr. Zonia Benitez , Emergency Provider Active Dr. Jovi Pack MD Admit Provider, Attending Provider Active Team Status: Active Member Role Status Dates Dr. Mita Morton DO Primary Care Provider Active Dr. Deonte Guardado MD Attending Provider Active Dr. Jovi Pack MD Referring Provider Active Team Status: Inactive Member Role Status Dates Dr. Mita Morton DO Primary Care Provider Active Dr. Xavier Younger MD Emergency Provider Active Science Consultant Relationship Specialty Start Date End Date [facility] [address] [place] [address] PCP - General 02/10/22 Mita Morton DO Family Medicine 01/12/22 Science Consultant Relationship Specialty Start Date End Date [facility] [address] [place] [address] PCP - General 02/10/22 06/14/22 Mita Morton DO [address] [place] [address] [place] [id number] PCP - General Family Medicine 06/15/22 Mita Morton DO Family Medicine 01/12/22 Science Consultant Relationship Specialty Start Date End Date Mita Morton DO [address] [place] [address] [place] [id number] PCP - General Family Medicine 06/15/22 Mita Morton DO Family Medicine 01/12/22 Science Consultant Relationship Specialty Start Date End Date Mita Morton DO [address] [place] [address] [place] [phone] PCP - General Family Medicine 06/15/22 Mita Morton DO Family Medicine 01/12/22 Science Consultant Relationship Specialty Start Date End Date [facility] [address] [place] [id number] PCP - General 02/10/22 06/14/22 Mita Morton DO [address] [place] [phone] PCP - General Family Medicine 06/15/22 Mita Morton DO Family Medicine 01/12/22 Science Consultant Relationship Specialty Start Date End Date Mita Morton DO [address] [place] [place] [phone] PCP - General Family Medicine 06/15/22 Mita Morton DO Family Medicine 01/12/22 Science Consultant Relationship Specialty Start Date End Date Mita Morton DO [address] [place] [address] PCP - General Family Medicine 06/15/22 Mita Morton DO [facility] Medicine 01/12/22 Team Status: Inactive Member Role Status Dates Dr. Mita Morton , DO Primary Care Provider Active Fallon Mcclendon NP, JERKER-C Attending Provider Active Team Status: Inactive Member [...] , DO Primary Care Provider Active Fallon WALSH JERKER-C Attending Provider, Referrin g Provider Active Team Status: Inactive Member Role Status Dates Dr. Mita Morton , DO Primary Care Pro vider, Attending Provider, Referring Provider Active Science Consultant Relationship Specialty Start Date End Date Mita Morton DO [address] [place] [address] [place] [address] PCP - General Family Medicine 06/15/22 Mita Mroton DO Family Medicine 01/12/22 Science Consultant Relationship Specialty Start Date End Date Mita Morton DO [address] [place] [address] [place] [address] PCP - General Family Medicine 06/15/22 Mita Morton DO Family Medicine 01/12/22 Team Status: Active Member Role Status Dates Dr. Mita Morton , Primary Care Provider, Referri ng Provider Active Dr. Roque Herrera , DO Attending Provider, Other Prov ider Active Team Status: Inactive Member Role Status Dates Dr. Mita Morton , Primary Care Provider, Referri ng Provider Active Dr. Roque Herrera , DO Attending Provider Active Team Status: Inactive Member Role Status Dates Dr. Mita Morton , Primary Care Provider Active Memo Naqvi MD Emergency Provider Active Science Consultant Relationship Specialty Start Date End Date Mita Morton DO [address] [place] [address] [place] [phone] PCP - General Family Medicine 06/15/22 Mita Morton DO Family Medicine 01/12/22 Science Consultant Relationship Specialty Start Date End Date Mita Morton DO [address] [place] [place] [address] PCP - General Family Medicine 06/15/22 Mita Morton DO Family Medicine 01/12/22 Science Consultant Relationship Specialty Start Date End Date Mita Morton DO [address] [place] [place] [address] PCP - General Family Medicine 06/15/22 Mita Morton DO Family Medicine 01/12/22 Science Consultant Relationship Specialty Start Date End Date Mita Morton DO [address] [place] [place] [phone] PCP - General Family Medicine 06/15/22 Mita Morton DO Family Medicine 01/12/22 Science Consultant Relationship Specialty Start Date End Date No, Pcp [address] [place] [address] PCP - General 02/10/22 Mita Morton DO [address] [address] [place] [phone] Family Medicine 01/12/22 Science Consultant Relationship Specialty Start Date End Date No, Pcp [address] [place] [address] PCP - General 02/10/22 Mita Morton DO Family Medicine 01/12/22 Science Consultant Relationship Specialty Start Date End Date No, Pcp [address] [place] [address] PCP - General 02/10/22 Mita Morton DO Family Medicine 01/12/22 Science Consultant Relationship Specialty Start Date End Date No, Pcp [address] [place] [address] PCP - General 02/10/22 Mita Morton DO Family Medicine 01/12/22 Science Consultant Relationship Specialty Start Date End Date No, Pcp [address] [place] [address] PCP - General 02/10/22 Mita Morton DO Family Medicine 01/12/22 Team [...] 2024 End: April 10, 2024 Fallon Mcclendon JERKER, JERKER-C Attending Provider Active Start: April 10, 2024 [...] Care Provider Active Start: June 12, 2024 Anbael WALSH MD Attending Provider Active Start: June 12, 2024 Team Status: Active Member Role/Relationship Status Dates Dr. Mita Morton DO Family Provider Active Dr. Mita Morton DO Primary Care Provider Active Team Status: Inactive Member Role/Relationship Status Dates Dr. Mita Morton DO Primary Care Provider Active Start: May 09, 2024 End: May 09, 2024 Dr. Anabel Duvall MD Attending Provider Active Start: May 09, 2024 End: May 09, 2024 Team Status: Inactive Member Role/Relationship Status Dates Dr. Mita Morton DO Primary Care Provider Active Start: June 12, 2024 End: June 12, 2024 Anabel WALSH MD Attending Provider Active Start: June 12, 2024 End: June 12, 2024 Team Status: Active Member Role/Relationship Status Dates Dr. Mita Morton DO Primary Care Provider Active Start: August 09, 2024 Anabel WALSH MD Attending Provider Active Start: August 09, 2024 Team Status: Active Member Role/Relationship Status Dates Dr. Mita Morton DO Primary Care Provider Active Start: August 18, 2024 Anabel WALSH MD Attending Provider Active Start: August 18, 2024 Team Status: Inactive Member Role/Relationship Status Dates Dr. Mita Morton DO Primary Care Provider Active Start: August 18, 2024 End: August 18, 2024 Dr. Mita Morton DO Referring Provider Active Start: August 18, 2024 End: August 18, 2024 DREW Cerna Attending Provider Active S tart: August 18, 2024 End: August 18, 2024 Science Consultant Relationship Specialty Start Date End Date Mita Morton DO [address] [place] [place] [phone] PCP - General Family Medicine 06/15/22 Mita Morton DO Family Medicine 01/12/22 Team Status: Inactive Member Role/Relationship Status Dates Dr. Mita Morton DO Primary Care Provider Active Start: June 20, 2024 End: June 20, 2024 Dr. Anabel Duvall MD Attending Provider Active Start: June 20, 2024 End: June 20, 2024 Team Status: Active Member Role/Relationship Status Dates Dr. Mita Morton DO Primary Care Provider Active Start: August 09, 2024 Anabel WALSH MD Attending Provider Active Start: August 09, 2024 Team Status: Active Member Role/Relationship Status Dates Dr. Mita Morton DO Primary Care Provider Active Start: August 18, 2024 Anabel WALSH MD Attending Provider Active Start: August 18, 2024 Team Status: Inactive Member Role/Relationship Status Dates Dr. Mita Morton DO Primary Care Provider Active Start: August 18, 2024 End: August 18, 2024 Dr. Mita Morton DO Referring Provider Active Start: August 18, 2024 End: August 18, 2024 DREW Cerna Attending Provider Active S tart: August 18, 2024 End: August 18, 2024 Team Status: Inactive Member Role/Relationship Status Dates Dr. Mita Morton DO Primary Care Provider Active Start: August 27, 2024 End: August 27, 2024 Sahil Mendoza JERKER, JERKER-C Attending Provider Active S tart: August 27, 2024 End: August 27, 2024 Team Status: Inactive Member Role/Relationship Status Dates Dr. Mita Morton DO Primary Care Provider Active Start: July 17, 2024 End: July 17, 2024 Sahil Mendoza NP, JERKER-C Attending Provider Active S tart: July 17, 2024 End: July 17, 2024 Team Status: Inactive Member Role/Relationship Status Dates Dr. Mita Morton DO Primary Care Provider Active Start: July 25, 2024 End: July 25, 2024 Fallon Mcclendon NP, JERKER-C Attending Provider Active Start: July 25, 2024 End: July 25, 2024 Team Status: Active Member Role/Relationship Status Dates Dr. Mita Morton DO Primary Care Provider Active Start: August 09, 2024 Anabel WALSH MD Attending Provider Active Start: August 09, 2024 Team Status: Active Member Role/Relationship Status Dates Dr. Mita Morton DO Primary Care Provider Active Start: August 18, 2024 Anabel WALSH MD Attending Provider Active Start: August 18, 2024 Team Status: Inactive Member Role/Relationship Status Dates Dr. Mita Morton DO Primary Care Provider Active Start: August 18, 2024 End: August 18, 2024 Dr. Mita Morton DO Referring Provider Active Start: August 18, 2024 End: August 18, 2024 DONOVAN CernaC Attending Provider Active S tart: August 18, 2024 End: August 18, 2024 Team Status: Active Member Role/Relationship Status Dates Dr. Mita Morton DO Primary Care Provider Active Team Status: Inactive Member Role/Relationship Status Dates Dr. Mita Morton DO Primary Care Provider Active Start: June 12, 2024 End: June 12, 2024 Anabel WALSH MD Attending Provider Active Start: June 12, 2024 End: June 12, 2024 Team Status: Inactive Member Role/Relationship Status Dates Dr. Mita Morton DO Primary Care Provider Active Start: June 20, 2024 End: June 20, 2024 Dr. Anabel Duvall MD Attending Provider Active Start: June 20, 2024 End: June 20, 2024 Team Status: Inactive Member Role/Relationship Status Dates Dr. Mita Morton DO Primary Care Provider Active Start: July 17, 2024 End: July 17, 2024 Sahil Mendoza JERKER, JERKER-C Attending Provider Active S tart: July 17, 2024 End: July 17, 2024 Team Status: Inactive Member Role/Relationship Status Dates Dr. Mita Morton DO Primary Care Provider Active Start: July 25, 2024 End: July 25, 2024 Fallon Mcclendon NP, JERKER-C Attending Provider Active Start: July 25, 2024 End: July 25, 2024 Team Status: Inactive Member Role/Relationship Status Dates Dr. Mita Mortno DO Primary Care Provider Active Start: August 08, 2024 End: August 08, 2024 Dr. Anabel Duvall MD Attending Provider Active Start: August 08, 2024 End: August 08, 2024 Team Status: Active Member Role/Relationship Status Dates Dr. Mita Morton DO Primary Care Provider Active Start: September 14, 2024 Anabel WALSH MD Attending Provider Active Start: September 14, 2024 Anabel WALSH MD Referring Provider Active Start: September 14, 2024 Team Status: Inactive Member Role/Relationship Status Dates Dr. Mita Morton DO Primary Care Provider Active Start: July 17, 2024 End: July 17, 2024 Fallon Mcclendon NP, JERKER-C Attending Provider Active Start: July 17, 2024 End: July 17, 2024 Scheduled Active and Recently Administ ered Medications (unrecognized section and content) Medication Order 06/14/2022 06/15/2022 06/16/2022 dicyclomine (Bentyl) capsule 10 mg 10 mg, Oral, 3 times daily, First dose on 06/13/22 at 1645 4734 (Given - Provider: Lennie Aguilar RN)1623 (Given - Provider: Lennie Aguilar RN)1513 (Given - Provider: Ashley Gutierrez RN) 0859 (Given - Provider: Lennie Aguilar RN)1607 (Given - Provider: Lennie Aguilar RN)203 (Given - Provider: Fiordaliza Del Castillo RN) 0912 (Given - Provider: Nicole Boles, ELEAZAR)1357 (Given - Provider: Nicole Bolse RN)2099 (Canceled Entry - Provider: Automatic Discharge [...] Sanchez RCP)2034 (Given - Provider: Thania Dee BENZENE STILL UTILITY OPERATOR) 1015 (Given - Provider: Thania Okeefe BENZENE STILL UTILITY OPERATOR)2021 (Given - Provider: Zahida Pruitt RCP) 0852 [...] RN) 0915 (New Bag - Provider: Nicole Boles, ELEAZAR)0935 (Stopped - Provider: Nicole Boles, ELEAZAR) memantine (Namenda) tablet 5 mg 5 mg, Oral, 2 times daily, First dose on 06/13/22 at 2100 0832 (Given - Provider: Lennie Aguilar RN)2118 (Given - Provider: Ashley Gutierrez RN) 0857 (Given - Provider: Lennie Aguilar RN)2029 (Given - Provider: Fiordaliza Del Castillo, ELEAZAR) 0912 (Given - Provider: Nicole Boles, ELEAZAR)2099 (Canceled Entry - Provider: Automatic Discharge Provider [...] 2100 0832 (Given - Provider: Lennie Aguilar RN)211 (Given - Provider: Ashley Gutierrez RN) 0859 (Given - Provider: Lennie Aguilar RN)203 (Given - Provider: Fiordaliza Del Castillo, ELEAZAR) 09 (Given - Provider: Nicole Boles, ELEAZAR)2099 (Canceled Entry - Provider: Automatic Discharge Provider - Comment: Automatically canceled at discontinue of medication order) mirtazapine (Remeron) tablet 15 mg 15 mg, Oral, Nightly, First dose on 06/13/22 at 2099 2117 (Given - Provider: Ashley Gutierrez, ELEAZAR) 2029 [...] RN) 0528 (Given - Provider: Fiordaliza Del CastilloELEAZAR) potassium chloride CR (Klor-Con M10) ER tablet [...] Castillo RN) 0912 (Given - Provider: Nicole Boles, ELEAZAR)2100 [...] at 1645 0832 (Given - Provider: Lennie Aguilra RN) 0859 (Given - Provider: Lennie Aguilar [...] RN)1605 (New Bag - Provider: Lennie Aguilar RN)2031 (Rate/Dose Verify - Provider: Fiordaliza Del Castillo RN)215 (Rate/Dose Verify - Provider: Fiordaliza Del Castillo [...] (2 times per day), First dose on 02/23/22 at 0900 0900 (Canceled Entry - Provider: [...] or prosecute any alcohol or drug abuse patient.[facility] FOR RECORDS PERTAINING TO PATIENTS WHO [...] BE BASED ON THE PRIMARY CLINICAL RECORDS. [facility] [employer] [facility]. provides no warranty or guarantee of the accuracy or completeness of information in this document.
--- NOTE | 2024-10-05 07:33 | HP.PCM_ITS ---
HPI - General General Date of Admission: 10/05/24 Date of Service: 10/05/24 HPI Narrative RICARDO NUNEZ, is a 83 F who presents with the Chief Complaint: difficulty swallowing EGD 01.04.23 Esophageal mucosal changes consistent with eosinophilic esophagitis. Moderate Schatzki ring. Dilated. Large hiatal hernia. Bile gastritis. No gross lesions in the duodenal bulb. Biopsies were taken with a cold forceps for evaluation of eosinophilic esophagitis. OV 6. Pt's daughter states that pt is doing well, but has really slowed down with her eating; pt's daughter states it takes her an hour to eat a sandwich. BM are normal. Continues with omeprazole. 07.30.23 EGD - Benign-appearing esophageal stenosis(endoscope could not pass). Dilated to 42Fr - Esophageal mucosal changes suggestive of eosinophilic esophagitis. - Large hiatal hernia. - Erythematous mucosa in the stomach. - No gross lesions in the first portion of the duodenum. - Biopsies were taken with a cold forceps for evaluation of eosinophilic esophagitis. PATH: Fragments of squamous epithelium with moderate chronic inflammation. Changes consistent with eosinophilic esophagitis are not seen. 08.18.24 OV She presents with staff from [facility]. Staff, Prema, is unfamiliar with Ricardo and her GI concerns; she agrees to call the facility during my exam so that I may talk with caretakers. I spoke with Sharmila French LPN and she relayed that Ricardo has intermittent difficulties with varying food consistencies. She will do fine with regular textures and thin liquids and then she won't. Sharmila reports that Ricardo just completed ST on 7 without further recommendations despite nursing staff expressing concerns with her coughing while eating on occasion. Ricardo does nod her head no when I asked about abdominal pain and if she feels like she has difficulty chewing and swallowing. Ricardo has documented dementia and I'm uncertain of its severity. [facility] Medical History Acute bronchitis, unspecified Wears glasses Wears dentures Wears partial dentures Bladder disease Low iron Back pain Hypertension Difficulty swallowing History of hiatal hernia Gastric reflux Non-smoker Leg cramps Cardiology follow-up encounter History of CHF (congestive heart failure) History of heart attack Wears hearing aid in both ears Diabetes Dementia Dyslipidemia Iron deficiency anemia, unspecified Paroxysmal atrial fibrillation Atherosclerotic heart disease of [place] coronary artery without angina pectoris Persistent atrial fibrillation Gallstone of bile duct with gallbladder inflammation h/o throat surgery Hyperlipidemia Anemia Home Medications ?Medication ?Instructions ?Recorded ?Last Taken ?Type sertraline 50 mg tablet 50 mg PO DAILY 10/18/18 Unkn own History torsemide 20 mg tablet 20 mg PO DAILY 10/18/18 Unkn own History metformin 500 mg tablet 500 mg PO BID 05/12/22 Unkno wn History rivastigmine tartrate 3 mg capsule 3 mg PO BID 4 Unknown History mirtazapine 15 mg tablet 15 mg PO QHS 07/27/23 Unknow n History amoxicillin 875 mg-potassium 1 tab PO BID #20 tabs Unknown Rx clavulanate 125 mg tablet quetiapine 25 mg tablet 12.5 mg PO QHS 11/22/23 Unkn own History pantoprazole 20 mg tablet,delayed 20 mg PO QDAY Unknown History release Allergy/AdvReac Type Severity Reaction Status Date / Time ticagrelor (From Brilinta) Allergy Shortness Verified 08/18/24 09:11 of breath Family History Other no pertinent family medical hsitory Surgical History History of esophagogastroduodenoscopy (EGD) Hx of partial thyroidectomy History of esophagogastroduodenoscopy (EGD) H/O colonoscopy H/O eye surgery H/O heart artery stent Social History Smoking Status: Never smoker ROS Constitutional Constitutional: Denies fatigue, fever(s), poor appetite, weight gain or weight loss Gastrointestinal Gastrointestinal: Denies belching, bloating, change in bowel habits, change in stool character, chewing difficulty, coffee ground emesis, constipation, cramping, diarrhea, dyspepsia, dysphagia, early satiety, excessive flatus, fecal incontinence, heartburn, hematemesis, hematochezia, hemorrhoids, loose stools, melena, nausea, odynophagia, rectal bleeding, tenesmus, vomiting or weight changes Physical Exam Const alert, oriented x3, no apparent distress and healthy appearing General Appearance: cooperative GI normal to inspection, nondistended, normoactive bowel sounds, soft to palpation, non-tender and non-distended Percussion: normal to percussion Rectal Exam: deferred Assessment & Plan Assessment/Plan (1) Esophageal stenosis: (2) Dysphagia: QUALIFIERS: Dysphagia type: esophageal phase Qualified Code(s): R13.19 - Other dysphagia PLAN: Assessment and Plan Assessment and Plan (1) Dysphagia: Status: Chronic Qualifiers: Dysphagia type: esophageal phase Qualified Code(s): R13.19 - Other dysphagia (2) Esophageal stenosis: Status: Chronic Plan RICARDO NUNEZ, is a 83 F who presents to the office today for FU and to schedule EGD w/dilation. Discussed care plan with staff present and with staff COMBINATION MACHINE TOOL OPERATOR via telephone during exam. * facility will call to schedule EGD w/dilation * recommend small bites with sips of liquids * continue pantoprazole 20mg PO daily 30minutes before eating * office FU PRN
--- NOTE | 2024-10-05 08:30 | EGD_PTH ---
PATIENT: RICARDO NUNEZ LOC: EN U#:[id number] AGE/SX: 83/F ROOM: RE10/05/[address]: Dr. Roque Herrera DO : 1940 BED: DIS: 10/05/2024 SPEC #: [id number] RECD: 10/05/24 10:06 STATUS: REBECCA REChristie #: [id number] JEANNE: 10/05/24 08:[address]: Roque Herrera DEPT: SURGICAL PATHOLOGY RECD BY: Antonio Morin ENTERED: 10/05/24 11:14 SP TYPE: EGD BIOPSY MIKEL DR: Dr. Mita Morton DO Tissues: A - Esophagus, NOS Procedures: Special Stain Group I Surgery Specimen Level IV GMS Stain (control) HEADER OPERATION: EGD, biopsy, dilation PRE-OP DIAGNOSIS: Dysphagia, esophageal stenosis TISSUE SUBMITTED: A- Random esophagus biopsy MICROSCOPIC DIAGNOSIS A. 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 - PASD stain is negative for fungal organisms. MICROSCOPIC DESCRIPTION Slides are reviewed. ?All matched controls reacted appropriately. These tests were developed and their performance characteristics determined by [facility]. They may not have been cleared or approved by the U.S. Food and Drug Administration. The FDA has determined that such clearance or approval is not necessary.? The above immunohistochemical?markers and/or special stains have been reviewed by the Pathologist. GROSS DESCRIPTION A. Received in fixative is one container labeled with the patient's name and designated Random esophagus biopsy. The specimen consists of multiple irregular fragments of light conway soft tissue that in aggregate measure 1 x 0.6 x 0.2 cm. The specimen is totally submitted in one cassette. HI 10/05/2024 CPT:01452 ,[id number]
--- NOTE | 2024-10-05 08:33 | PCM.PRE.AN2 ---
ASA Classification* ASA Classification ASA Classification: 3 Assessment & Plan Anesthesia* Anesthesia Assessment Anesthesia Assessment: Discussed sedation and/or anesthesia options, risks, benefits, and alternatives with patient/parents/legal guardian/POA. Questions invited. The patient/parents/legal guardian/POA seems to understand and agrees to proceed with anesthesia plan. Reviewed the physical assessment, medical history, allergy history and patient home medications list prior to surgery/procedure/anesthetic and documented any changes. Performed airway and anesthesia risk assessments. Anesthesia Type Anesthesia Type: MAC History Source History Obtained from:: Patient, Chart and - (daughter, consent from POA) Anesthesia Focused Assessment* Temperature: 97.6 F Pulse Rate: 72 Blood Pressure: 102/76 Respiratory Rate: 16 Pulse Ox: 100 Oxygen Delivery Method: Room Air Airway Assessment Mouth opens: >3 cm Mallampati Score: I Teeth Condition: Dentures Neck Range of motion (ROM): Limited ROM Comment: upper and lower to come out Labs Anesthesia Preop lab: CBC WBC 5.0 K/mm3 (4.4-11.0) 09/14/24 05:15 09/14/24 RBC 3.38 M/mm3 (4.2-5.4) L 09/14/24 05:15 09/14/24 Hgb 9.7 g/dL (12.0-15.0) L 09/14/24 05:15 09/14/24 Hct 30.0 % (37-47) L 09/14/24 05:15 09/14/24 Plt Count 197 K/mm3 (150-450) 09/14/24 05:15 09/14/24 CHEMISTRY Potassium 3.9 mmol/L (3.3-5.1) 09/14/24 05:15 09/14/24 Sodium 140 mmol/L (133-145) 09/14/24 05:15 09/14/24 BUN 20 mg/dL (4-19) H 09/14/24 05:15 09/14/24 Creatinine 0.86 mg/dL (0.70-1.20) 09/14/24 05:15 09/14/24 Glucose 109 mg/dL (70-99) H 09/14/24 05:15 09/14/24 POC Glucose 126 mg/dL (74-106) H 07/30/23 06:08 07/30/23 COAG PT 14.7 SECONDS (11.7-14.9) 05/13/22 05:40 05/13/22 Pre-Assessment Diagnosis/Proposed Procedure Planned Operative Procedure(s): EGD Anesthesia History Anesthesia History - [employer] consultant: Anesthesia History - [employer] consultant Hx Hospitalization Yes: 06/2022 LOWER LEGS EDEMA 08/27/24 10:39 Any Problems With Anesthesia No 08/27/24 10:39 Cholinesterase deficiency No 08/27/24 10:39 You/Your Family Experience No 08/27/24 10:39 fever (hyperthermia) with Relationship Recent Exposure to Contagious No 10/05/24 08:07 Disease Does patient have nerve No 10/05/24 07:47 stimulator Patient instructed to have device shut off --Does patient have Pacemaker No 10/05/24 08:07 or ICD? When Was Last Pacemaker Check QUESTION #4 FULL TEXT: You/Your Family Experience fever (hyperthermia) with Anesthesia Last Oral Intake Last Oral intake: Last Oral Intake NPO since 00:00 10/05/24 08:07 Meds taken in AM with sips of water? Meds patient instructed to take am of surgery PONV PONV - [employer] consultant: PONV - [employer] consultant Female Yes 10/05/24 07:47 HX of Motion Sickness No 10/05/24 07:47 HX of N/V After Surgery No 10/05/24 07:47 Non-Smoker Yes 10/05/24 07:47 Duration of Surgery greater No 10/05/24 07:47 than 60 minutes Number of Risk Factors 2 10/05/24 07:47 PONV Score Moderate Risk 10/05/24 07:47 Height & Weight Height & Weight: Anesthesia: Height & Weight Height 5 ft 10/05/24 08:07 Weight: 42 kg 10/05/24 08:07 Body Mass Index (BMI) 18.1 10/05/24 08:07 Respiratory Assessment Respiratory Assessment - [employer] consultant: Respiratory Tract Infection Hx - [employer] consultant Hx Respiratory Tract Infection No 08/27/24 10:39 STOP Sleep Apnea STOP Sleep Apnea - [employer] consultant: STOP Sleep Apnea - [employer] consultant Hx Hypertension Yes 10/05/24 07:47 Hx Sleep Apnea No 10/05/24 07:47 CPAP BIPAP Do you snore loudly (louder No 10/05/24 07:47 than talking or can be heard Do you often feel tired/ No 10/05/24 07:47 fatigued/ sleepy during daytime? Has anyone observed you stop No 10/05/24 07:47 breathing during sleep? STOP Results Negative 10/05/24 07:47 QUESTION #5 FULL TEXT : Do you snore loudly (louder than talking or can be heard through closed doors)? Tobacco Use History Tobacco Use History - [employer] consultant: Tobacco Use History - [employer] consultant Tobacco Use Smoking Status Never smoker 10/05/24 07:47 Hx Tobacco Use No 10/05/24 07:47 Years Smoking Packs Smoked per Day Smoking Cessation Date was within the last 15 years Hx Smoking Cessation Date Hx Smoking Cessation Counseling Hematologic Medial History Hematologic Hx - [employer] consultant: Hematologic Medical Hx - lpn Hx of Blood Transfusion Hx of Transfusion in last 3 Months Date of Last Transfusion (if within last 3 months) Ever experience any problems with transfusion(s)? Specify any problems Hx of Preganancy in last 3 Months Nurse Filling Out Transfusion & Questions: Date: Time: Patient unable to answer at Yes 10/05/24 07:47 this time (ie. confused, unrespo /Reproduction History /Reproductive History - [employer] consultant: /Reproductive Hx- [employer] consultant Hx Now No 10/05/24 07:47 Gestational Age (in weeks): EDC: Hx Hx Para Hx Section SAB No 10/05/24 07:47 Active Medications Active Medications: Current Medications Generic Name Dose Route Start Last Admin Trade Name Freq PRN Reason Stop Dose Admin Lactated Ringer's 1,000 mls @ 15 mls/hr 10/05/24 07:30 IV .Q48H MATEUS PFSH Medical History Anxiety Depression Constipation Acute bronchitis, unspecified Wears glasses Wears dentures Wears partial dentures Bladder disease Low iron Back pain Hypertension Difficulty swallowing History of hiatal hernia Gastric reflux Non-smoker Leg cramps Cardiology follow-up encounter History of CHF (congestive heart failure) History of heart attack Wears hearing aid in both ears Diabetes Dementia Dyslipidemia Iron deficiency anemia, unspecified Paroxysmal atrial fibrillation Atherosclerotic heart disease of [place] coronary artery without angina pectoris Persistent atrial fibrillation Gallstone of bile duct with gallbladder inflammation h/o throat surgery Hyperlipidemia Anemia Home Medications ?Medication ?Instructions ?Recorded ?Last Taken ?Type sertraline 50 mg tablet 50 mg PO DAILY 10/18/18 Unknown History torsemide 20 mg tablet 20 mg PO DAILY 10/18/18 Unknown History metformin 500 mg tablet 500 mg PO BID 05/12/22 Unknown History rivastigmine tartrate 3 mg capsule 3 mg PO BID 04/04/23 Unknown History mirtazapine 15 mg tablet 15 mg PO QHS 07/27/23 Unknown History quetiapine 25 mg tablet 25 mg PO .qam 11/22/23 Unknown History pantoprazole 20 mg tablet,delayed 20 mg PO QDAY 08/18/24 Unknown History release acetaminophen 500 mg capsule 500 mg PO Q4H PRN pain 10/05/24 Unknown History magnesium hydroxide 400 mg/5 mL 5 ml PO DAILY PRN constipation 10/05/24 Unknown History oral suspension (Milk of Magnesia) quetiapine 50 mg tablet (Seroquel) 50 mg PO DAILY 10/05/24 Unknown History Allergy/AdvReac Type Severity Reaction Status Date / Time ticagrelor (From Brilinta) Allergy Shortness Verified 10/05/24 08:06 of breath Family History Other no pertinent family medical hsitory Family History unable to obtain Surgical History History of esophagogastroduodenoscopy (EGD) Hx of partial thyroidectomy History of esophagogastroduodenoscopy (EGD) H/O colonoscopy H/O eye surgery H/O heart artery stent Social History Smoking Status: Never smoker Review of Systems (Anesthesia) ROS Narrative System reviewed and no additional complaints, except as documented.
[2024-10-05] MEDS: Lactated Ringers 1,000 ML 15 ML IV (09:00)
--- NOTE | 2024-10-05 09:18 | OP.PROVAT_ITS ---
10/05/2024 Mita Morton Re : Upper GI endoscopy procedure for Prema Villalpando Dear Praveen This procedure was performed on September. My impressions and recommendations are as follows: Impressions : - Esophageal mucosal changes secondary to eosinophilic esophagitis. Dilated. - No gross lesions in the entire stomach. - Large hiatal hernia. - Normal first portion of the duodenum. - Biopsies were taken with a cold forceps for evaluation of eosinophilic esophagitis. Recommendations : - Discharge patient to home. - Advance diet as tolerated. - Continue present medications. - Await pathology results. My findings are described in the full procedure note, which is enclosed. If I can be of further assistance, please feel free to contact me at . Sincerely, Roque Herrera, 10/05/2024 9:18:15 AM This report has been signed electronically.
--- NOTE | 2024-10-05 09:18 | OP.EGD_ITS ---
Patient Name: Prema Villalpando Procedure Date: 10/05/2024 8:39 AM Date of : 1940 Age: 83 Procedure: Upper GI endoscopy Indications: Dysphagia Providers: Roque Herrera DO Medicines: Monitored Anesthesia Care Patient Profile: This is an 83 year old female. Refer to note in patient chart for documentation of history and physical. Patient has symptoms. Her most recent EGD for dilation. Complications: No immediate complications. Procedure: Pre-Anesthesia Assessment: - Prior to the procedure, a History and Physical was performed, and patient medications and allergies were reviewed. The patient is competent. The risks and benefits of the procedure and the sedation options and risks were discussed with the patient. All questions were answered and informed consent was obtained. Patient identification and proposed procedure were verified by the physician in the pre-procedure area. Mental Status Examination: alert and oriented. Airway Examination: normal oropharyngeal airway and neck mobility. Respiratory Examination: clear to auscultation. CV Examination: normal. Prophylactic Antibiotics: The patient does not require prophylactic antibiotics. Prior Anticoagulants: The patient has taken no anticoagulant or antiplatelet agents. ASA Grade Assessment: II - A patient with mild systemic disease. After reviewing the risks and benefits, the patient was deemed in satisfactory condition to undergo the procedure. The anesthesia plan was to use monitored anesthesia care (MAC). Immediately prior to administration of medications, the patient was re-assessed for adequacy to receive sedatives. The heart rate, respiratory rate, oxygen saturations, blood pressure, adequacy of pulmonary ventilation, and response to care were monitored throughout the procedure. The physical status of the patient was re-assessed after the procedure. After obtaining informed consent, the endoscope was passed under direct vision. Throughout the procedure, the patient's blood pressure, pulse, and oxygen saturations were monitored continuously. The Endoscope was introduced through the mouth, and advanced to the second part of duodenum. The upper GI endoscopy was accomplished without difficulty. The patient tolerated the procedure well. Scope In: 8:54:24 AM Scope Out: 9:04:32 AM Total Procedure Duration Time 0 hours 10 minutes 8 seconds Findings: Mucosal changes including ringed esophagus, longitudinal furrows, small-caliber esophagus, circumferential folds and congestion (edema) were found in the entire esophagus. Biopsies were obtained from the proximal and distal esophagus with cold forceps for histology of suspected eosinophilic esophagitis. Verification of patient identification for the specimen was done. Estimated blood loss was minimal. A guidewire was placed and the scope was withdrawn. Dilation was performed with a Savary dilator with no resistance at 48 Fr. The dilation site was examined and showed moderate mucosal disruption. No gross lesions were noted in the entire examined stomach. A large hiatal hernia was present. The first portion of the duodenum was normal. Impression: - Esophageal mucosal changes secondary to eosinophilic esophagitis. Dilated. - No gross lesions in the entire stomach. - Large hiatal hernia. - Normal first portion of the duodenum. - Biopsies were taken with a cold forceps for evaluation of eosinophilic esophagitis. Recommendation: - Discharge patient to home. - Advance diet as tolerated. - Continue present medications. - Await pathology results. Procedure Code(s): --- Professional --- 04106, Esophagogastroduodenoscopy, flexible, transoral; with insertion of guide wire followed by passage of dilator(s) through esophagus over guide wire 10459, 59,51, Esophagogastroduodenoscopy, flexible, transoral; with biopsy, single or multiple CPT copyright 2021 [employer]. All rights reserved. The codes documented in this report are preliminary and upon waiter/waitress buffet review may be revised to meet current compliance requirements. Roque Herrera DO 10/05/2024 9:18:15 AM This report has been signed electronically. Number of Addenda: 0 Note Initiated On: 10/05/2024 8:39 AM
--- NOTE | 2024-10-05 09:21 | PCM.POST.ANE ---
Anesthesia: Postop Eval I Current Vital Signs Temperature: 97.7 F Pulse Rate: 76 Blood Pressure: 118/66 Respiratory Rate: 16 Pulse Ox: 97 Oxygen Delivery Method: Room Air Assessment Airway patent: Yes Spontaneous unlabored respirations: Yes Mental status: Asleep nausea: No Vomiting: No Anesthesia Complication: No Fluid Hydration Crystalloid volume administer (ml): 300 Total IV fluid infused: 300 Progress Note Anesthesia document: Postop Eval 1 completed: Yes
== END 2024-10-05 10:06 | disposition home or self-care (01) ==
LOC: EN 07:24 → AC 07:26
PROVIDERS: PCP Family Medicine; Referring Provider Family Medicine; Visit Provider Internal Medicine Gastroenterology
PROC: 0DJ08ZZ Inspection of Upper Intestinal Tract, Via Natural or Artificial Opening Endoscopic (ICD-10-PCS; CPT 43235; principal; 2024-10-05 08:25)
DX: K22.2 Esophageal obstruction (principal); F03.90 Unspecified dementia, unspecified severity, without behavioral disturbance, psychotic disturbance, mood disturbance, and anxiety; E11.9 Type 2 diabetes mellitus without complications; I10 Essential (primary) hypertension; K21.00 Gastro-esophageal reflux disease with esophagitis, without bleeding; K44.9 Diaphragmatic hernia without obstruction or gangrene; Z79.84 Long term (current) use of oral hypoglycemic drugs; Z79.899 Other long term (current) drug therapy
CPT/HCPCS: 43248; 43239; 88305; 88312; C1769; J2405

== ENCOUNTER → 2024-12-14 05:00 | Outpatient (REF) | payer MEDICARE, OTHER, SELFPAY ==
--- OUTSIDE RECORDS SUMMARY | 2024-12-14 03:34 | XMS RPT_ITS | CCD ---
Author Organization [facility] CliniSyid Care Team Providers Care Welder Repair Name Role Phone Alisson Morton Primary Care Provider Dr. Alisson Morton Primary Care Provider Dr. Zonia Benitez Emergency Provider Dr. Jovi Pack Admit Provider Dr. Jovi Pack Attending Provider Dr. Jovi Pack Other Provider Dr. Roque Herrera Attending Provider Dr. Deonte Guardado Attending Provider Dr. Jovi Pack Referring Provider Alisson Morton DO Unavailable [facility] Primary Care Provider Luisav ailadonis [facility] Primary Care Provider Unav ailAlisson Lucas DO Primary Care Provider Alisson Morton DO Unavailable Alisson Morton DO Primary Care Provider Dr. Alisson Morton Primary Care Provider Hakan WHELAN, DREW Lehman Attending Provider Unav Dr. Anabel Freeman Attending Provider Dr. Alisson Morton Primary Care Provider Dr. Alisson Morton Referring Provider Dr. Roque Herrera Attending Provider Dr. Roque Herrera Other Provider Unavailable Primary Care Provider Unavailabl e Esterle DO, Alisson M Unavailable No, Pcp Primary Care Provider Unavailabl e Esterle DO, Alisson M Unavailable Praveen BORJA, Dr. Alisson Lima Primary Care Provider Anabel Duvall MD Attending Provider Unavailtyrone Duvall MD, Dr. Little Attending Provider Hakan WORKFORCE ANALYST-CFallon Attending Provider Dr. Alisson Morton DO Primary Care Provider Dr. Anabel Duvall MD Attending Provider Anabel Duvall MD Attending Provider Unavailtyrone Morton DO, Dr. Alisson Lima Referring Provider Sherwin WORKFORCE ANALYST-CBrittany Attending Provider ESTERLE, ALISSON Attending Unavailable ESTERLE, ALISSON Referring Unavailable ESTERLE, ALISSON Primary Care Unavailable ESTERLE, ALISSON Attending Unavailable ESTERLE, ALISSON Referring Unavailable ESTERLE, ALISSON Primary Care Unavailable REDLE, TONI Attending Unavailable ESTERLE, ALISSON Primary Care Unavailable Roof WORKFORCE ANALYST-C, Osmar Wheeler Attending Provider Roof WORKFORCE ANALYST-C, Osmar Wheeler Attending Provider Hakan WORKFORCE ANALYST-C, Fallon Attending Provider Dr. Alisson Morton DO Primary Care Provider Dr. Anabel Duvall MD Attending Provider Anabel Duvall MD Referring Provider Unavaila melany Mcclendon WORKFORCE ANALYST-CFallon Attending Provider Dr. Roque Herrera DO Attending Provider Dr. Roque Herrera DO Other Provider Louisa Mortona M Primary Care Unavailable Anabel Blevins Referring Unavailabl e Oleghe OLS, Efewongbe Attending Unavailabl e Esterle, Alisson M Primary Care Unavailable Oleghe OLS, Efewongbe Attending Unavailabl e Esterle, Alisson M Primary Care Unavailable Oleghe OLS, Efewongbe Attending Unavailabl e Esterle, Alisson M Primary Care Unavailable Tickton, Fallon Attending Unavailable Esterle, Alisson M Primary Care Unavailable Oleghe, Efewongbe Attending Unavailable Esterle, Alisson M Primary Care Unavailable Oleghe, Efewongbe Attending Unavailable Esterle, Alisson M Primary Care Unavailable Oleghe, Efewongbe Attending Unavailable Tickton, Fallon Attending Unavailable Esterle, Alisson M Primary Care Unavailable Esterle, Alisson M Referring Unavailable Friend, Roque Attending Unavailable Friend, Roque Consulting Unavailable Esterle, Alisson M Primary Care Unavailable Tickton, Fallon Attending Unavailable Esterle, Alisson M Primary Care Unavailable Esterle, Alisson M Primary Care Unavailable Tickton, Fallon Attending Unavailable Esterle, Alisson M Primary Care Unavailable Esterle, Alisson M Referring Unavailable Brittany Courtney Attending Unavailable Oleghe, Efewongbe Attending Unavailable Esterle, Alisson M Primary Care Unavailable Oleghe OLS, Efewongbe Attending Unavailabl e Esterle, Alisson M Primary Care Unavailable Esterle, Alisson M Referring Unavailable Esterle, Alisson M Primary Care Unavailable Friend, Roque Attending Unavailable Oleghe OLS, Efewongbe Attending Unavailabl e Esterle, Alisson M Primary Care Unavailable Tickton, Fallon Attending Unavailable Esterle, Alisson M Primary Care Unavailable Esterle, Alisson M Primary Care Unavailable Oleghe OLS, Efewongbe Attending Unavailabl e Oleghe OLS, Efewongbe Attending Unavailabl e Esterle, Alisson M Primary Care Unavailable Esterle, Alisson M Primary Care Unavailable Oleghe, Efewongbe Attending Unavailable Esterle, Alisson M Primary Care Unavailable López Rodriguez Attending Unavailable Allergies Allergy Classification Reported Allergen(s) Allergy Type Date of Onset Reaction(s) Facility Ticagrelor (2 sources) Ticagrelor Drug Allergy 9 Shortness Of Breath [facility] Work Phone: (20 sources) Ticagrelor Drug Allergy 9 Shortness Of Breath [facility] Work Phone: (20 sources) Ticagrelor Propensity to adverse reactions 9 Shortness of breath [facility] (1 source) Ticagrelor Drug Allergy 5 [facility] Repository Medications Current Medications Medication Drug Class(es) Dates Sig (Normalized) Sig (Original) acetaminophen 500 mg oral capsule (7 sources) Start: 10-05-2024 take 1 capsule by mouth every four hours as needed for pain Acetaminophen 500 mg capsule Active 500 mg PO Q4H as needed for pain October 05, 2024 12:00am Start: 06-13-2022 End: 06-16-2022 take 1 tablet [...] Start: 09-15-2018 acetaminophen (TYLENOL) tablet 650 mg acetaminophen 325 mg / oxyCODONE hydrochloride 5 mg oral tablet (1 source) Opioid Agonist Start: 02-15-2019 End: 02-22-2019 oxyCODONE-acetaminophen (PERCOCET) 5-325 MG per tablet Indications: 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 Intended supply: 7 days. Take lowest dose possible to manage pain 28 tablet 0 02/15/2019 02/22/2019 Active albuterol 0.833 mg/ml / ipratropium bromide 0.167 mg/ml inhalation solution (2 sources) Anticholinergic , beta2-Adrenergi c Agonist Start: 02-16-2019 ipratropium-albutero l (DUONEB) nebulizer [...] 8 HOURS UNTIL GONE 0 05/21/2020 Active ascorbic acid 60 mg / beta carotene 5000 unt / copper sulfate 40 mg / dl-alpha tocopheryl acetate 30 unt / sodium selenite 0.04 mg / zinc oxide 40 mg oral tablet (4 sources) Vitamin C take 1 tablet by mouth once daily Multiple Vitamins-Minerals (THERAPEUTIC MULTIVITAMIN-MINE RALS) tablet Take 1 tablet by mouth daily 0 Active chlorhexidine gluconate 1.2 mg/ml mouthwash (2 sources) Start: 05-21-2020 chlorhexidine (PERIDEX) 0.12 % solution RINSE WITH 15ML FOR 30 SECONDS AND SPIT USE TWICE DAILY AFTER BRUSHING AND FLOSSING . DO NOT EAT OR DRINK FOR ONE HOUR AFTER USE 0 05/21/2020 Active clopidogrel 75 mg oral tablet (20 sources) P2Y12 Platelet Inhibitor Start: 08-17-2018 End: 08-18-2024 take 1 tablet by mouth once daily clopidogrel (Plavix) 75 MG tablet Take 1 tablet by mouth daily. 0 11/14/2018 Active clotrimazole 10 mg oral lozenge (3 sources) Azole Antifungal Start: 05-12-2022 take 10 mg by mouth three times daily as needed Clotrimazole Active 10 MG PO 3 TIMES DAILY NEEDED May 12, 2022 12:00am dicyclomine hydrochloride 10 mg oral capsule (20 sources) Anticholinergic Start: 09-18-2018 End: 08-25-2022 take 1 capsule by mouth three times daily before mealtime dicyclomine (Bentyl) 10 MG capsule TAKE 1 CAPSULE BY MOUTH THREE TIMES DAILY BEFORE MEAL(S) 0 11/14/2018 Active docusate sodium 100 mg oral capsule (1 source) Start: 02-17-2019 docusate sodium (COLACE) capsule 100 mg donepezil hydrochloride 10 mg oral tablet (1 source) Start: 02-10-2019 take 10 mg by mouth once daily Donepezil Active 10 MG PO DAILY February 10, 2019 4:07pm ibuprofen 800 mg oral tablet (2 sources) Nonsteroidal Anti-inflammatory Drug Start: 05-21-2020 take 1 tablet by mouth every six hours for pain ibuprofen (ADVIL;MOTRIN) 800 MG tablet TAKE 1 TABLET BY MOUTH EVERY 6 HOURS FOR DENTAL PAIN 0 05/21/2020 Active Magnesium Hydroxide (4 sources) Start: 10-05-2024 take 1 mL by mouth once daily as needed for constipation Magnesium Hydroxide (Milk Of Magnesia) 400 mg/5 mL suspension Active 5 mL PO DAILY as needed for constipation October 05, 2024 12:00am Start: 02-11-2019 take 30 mL by mouth once daily [...] PO DAILY October 18, 2018 9:36am nystatin 720243 unt/ml oral suspension (3 sources) Polyene Antifungal Start: 05-13-2022 Nystatin Active 250698 UNIT PO EVERY 6 HOURS 56 7 [...] pantoprazole 20 mg delayed release oral tablet (13 sources) Proton Pump Inhibitor Start: 08-18-2024 take 1 tablet by mouth once daily Pantoprazole 20 mg tablet,delayed release (DR/EC) Active 20 mg PO daily August 18, 2024 12:00am Start: 09-16-2018 End: 06-16-2022 take 40 mg by mouth once daily before breakfast 40 mg, Oral, Daily before breakfast, First dose on 06/14/22 at 0700 Do not crush, chew, or split. polyethylene glycol 3350 75839 mg powder for oral solution (6 sources) [...] PO DAILY October 18, 2018 9:36am QUEtiapine 50 mg oral tablet (10 sources) Atypical Antipsychotic Start: 10-05-2024 take 1 tablet by mouth once daily Quetiapine (Seroquel) 50 mg tablet Active 50 mg PO DAILY October 05, 2024 12:00am Start: 07-09-2024 take 1 tablet by smita th twice daily QUEtiapine (SEROquel) 25 MG tablet Take 25 mg by mouth 2 times daily. 07/09/2024 Active Start: 11-22-2023 take 1 tablet by smita th once daily in the morning Quetiapine 25 mg tablet Active 25 mg PO .qa November 22, 2023 12:00am Start: 11-22-2023 Quetiapine 25 mg tablet Active 12.5 mg PO AT BEDTIME November 22, 2023 12:00am rivastigmine 3 mg oral capsule (20 sources) Start: 06-13-2022 End: 06-16-2022 take 3 mg by mouth twice daily 3 mg, Oral, 2 times daily, First dose on 06/13/22 at 2100 Start: 12-29-2021 take 1 capsule by mo ut twice daily Rivastigmine Tartrate 3 mg capsule [...] 1 tablet by mouth once daily therapeutic multivitamin-school examiner als (Theragran-M) tablet Take 1 tablet [...] Drug Class(es) Dates Sig (Normalized) Sig (Original) amoxicillin 875 mg / clavulanate 125 mg oral tablet (10 sources) Penicillin-class Antibacterial Start: 11-22-2023 End: 10-05-2024 Amoxicillin-Pot Clavulanate 875-125 mg tablet Discontinued 1 {tbl} PO TWICE A DAY 20 0 November 22, 2023 12:00am October 05, 2024 7:36am Start: 09-17-2018 End: 09-27-2018 take 1 tablet by mouth every twelve hours amoxicillin-clavulanate (AUGMENTIN) 875-125 MG per tablet Take 1 tablet by mouth every 12 hours for 10 days 12 tablet 0 09/17/2018 09/27/2018 Active Start: 09-17-2018 amoxicillin-cl avulanate (AUGMENTIN) 875-125 MG per tablet 1 tablet aspirin 81 mg oral tablet (20 sources) [...] dose on Micheline 09/15/18 at 2100 B Qocsvfz-L-Cxbd TABS (1 source) End: 09-15-2018 take 1 tablet by mouth once daily B Sdoctxu-T-Phlh TABS Take 1 tablet by mouth daily [...] IntraVENous, IMG once PRN, contrast, Starting on Wed12/20/23 at 1536, For 1 dose 500 ml [...] % injection LORazepam 0.5 mg oral tablet (7 sources) Benzodiazepine Start: 08-17-2024 End: 09-06-2024 take [...] hydrochloride 10 mg oral tablet (20 sources) I-ogaglh-I-aspartate Receptor Antagonist Start: 05-12-2022 End: 07-23-2023 take [...] Date Documented Da te Episodic/Chronic Abdominal hernia (14 sources) Hiatal hernia; Translations: [Diaphragmatic hernia without obstruction or gangrene] 02-11-2019 Episodic Abdominal pain (20 sources) Abdominal pain; Translations: [Unspecified abdominal pain] Onset: 9 09-15-2018 Episodic Acute bronchitis (8 sources) Acute bronchitis; Translations: [Acute bronchitis, unspecified] [...] heart disease (20 sources) Coronary arteriosclerosis in [place] artery; Translations: [Coronary atherosclerosis] Onset: 9 09-18-2018 [...] Onset: 9 10-04-2018 Chronic E Codes: Fall (9 sources) Fall; Translations: [Unspecified fall, initial encounter] 04-04-2023 Episodic Esophageal disorders (20 sources) Obstruction of esophagus; Translations: [Esophageal obstruction] Onset: 3 02-23-2022 Chronic Essential hypertension (14 sources) Hypertensive disorder; Translations: [Essential (primary) hypertension] 02-10-2019 Chronic Genitourinary symptoms and ill-defined conditions (1 source) Urinary incontinence; Translations: [Unspecified urinary incontinence] 05-11-2023 Chronic Immunizations and screening for infectious disease (13 sources) Contact with or exposure to other viral diseases; Translations: [Exposure to COVID-19 virus] 08-15-2021 Episodic Malaise and fatigue (20 sources) Tired; Translations: [Other fatigue] 06-01-2022 Episodic Nonspecific chest pain (14 sources) Atypical chest pain; Translations: [Other chest pain] 02-11-2019 Episodic Nutritional deficiencies (20 sources) Nutritional marasmus; Translations: [Unspecified severe protein-calorie malnutrition] Onset: 0 02-13-2019 Chronic Open wounds of extremities (9 sources) Laceration without foreign body of left upper arm, initial encounter; Translations: [Skin tear of left upper extremity] 04-04-2023 Episodic Other circulatory disease (13 sources) H/O: hypertension; Translations: [Personal history of [...] Onset: 9 08-15-2018 Chronic Other gastrointestinal disorders (13 sources) History of stricture of esophagus; Translations: [...] diseases of digestive system] 05-13-2022 Episodic Other gastrointestinal disorders (2 sources) Other dysphagia; Translations: [Other dysphagia] Onset: 5 Episodic Other injuries and conditions due to [...] of mental health and substance abuse codes (12 sources) H/O: dementia; Translations: [Personal history of other mental and behavioral disorders] 06-01-2022 Episodic Spondylosis; intervertebral disc disorders; other back problems (1 source) Backache; Translations: [Dorsalgia, unspecified] 05-11-2023 Episodic Superficial injury; contusion (9 sources) Contusion of face; Translations: [Contusion of [...] elsewhere, unspecified severity, with agitation] Onset: 5 Urinary tract infections (1 source) Urinary tract infection, site not specified; Translations: [Urinary tract infection, site not specified] Onset: 5 Episodic Viral infection (13 sources) Disease caused by 2019-nCoV; Translations: [COVID-19] [...] 08-08-2018 08-08-2018 Episodic Fluid and electrolyte disorders (16 sources) Mild dehydration; Translations: [Dehydration] Onset: 03-17-2024 06-01-2022 Episodic Other aftercare (20 sources) Patient encounter status; Translations: [accounts manager (current) use of antithrombotics/antip latelets] Onset: 02-12-2019 02-12-2019 Episodic Other aftercare (7 sources) Long-term current use of drug therapy; Translations: [accounts manager (current) use of antithrombotics/antip latelets] Onset: 02-12-2019 [...] mental status, unspecified] Onset: 03-17-2024 Episodic Unclassified (13 sources) h/o throat surgery 09-08-2021 Comment on above: enlarged esophagous Results Test Name Value Interpretation Reference Range Facility EGD Reporton 10-05-2024 EGD Report [facility] Medical Records Department [address] [place] [address] EGD Report MR#: [id number] Acct: [id number] Name: RICARDO VILLALPANDO Rep #: [id number] : 1940 83 From: Roque Herrera DO PCP: Alisson Morton DO Status:REG [facility] Patient Name: Ricardo Villalpando Procedure Date: 10/05/2024 8:39 AM Date of : 1940 Age: 83 Procedure: Upper GI endoscopy Indications: Dysphagia Providers: Roque Herrera DO Medicines: Monitored Anesthesia Care Patient Profile: This is an 83 year old female. Refer to note in patient chart for documentation of history and physical. Patient has symptoms. Her most recent EGD for dilation. Complications: No immediate complications. Procedure: Pre-Anesthesia Assessment: - Prior to the procedure, a History and Physical was performed, and patient medications and allergies were reviewed. The patient is competent. The risks and benefits of the procedure and the sedation options and risks were discussed with the patient. All questions were answered and informed consent was obtained. Patient identification and proposed procedure were verified by the physician in the pre-procedure area. Mental Status Examination: alert and oriented. Airway Examination: normal oropharyngeal airway and neck mobility. Respiratory Examination: clear to auscultation. CV Examination: normal. Prophylactic Antibiotics: The patient does not require prophylactic antibiotics. Prior Anticoagulants: The patient has taken no anticoagulant or antiplatelet agents. ASA Grade Assessment: II - A patient with mild systemic disease. After reviewing the risks and [...] the patient was re-assessed after the procedure. After obtaining informed consent, the endoscope was passed under direct vision. Throughout the procedure, the patient's blood pressure, pulse, and oxygen saturations were monitored continuously. The Endoscope was introduced through the mouth, and advanced to the second part of duodenum. The upper GI endoscopy was accomplished without difficulty. The patient tolerated the procedure well. Scope In: 8:54:24 AM Scope Out: 9:04:32 AM Total Procedure Duration Time 0 hours 10 minutes 8 seconds Findings: Mucosal changes including ringed esophagus, longitudinal furrows, small-caliber esophagus, circumferential folds and congestion (edema) were found in the entire esophagus. Biopsies were obtained from the proximal and distal esophagus with cold forceps for histology of suspected eosinophilic esophagitis. Verification of patient identification for the specimen was done. Estimated blood loss was minimal. A guidewire was placed and the scope was withdrawn. Dilation was performed with a Savary dilator with no resistance at 48 Fr. The dilation site was examined and showed moderate mucosal disruption. No gross lesions were noted in the entire examined stomach. A large hiatal hernia was present. The first portion of the duodenum was normal. Impression: - Esophageal mucosal changes secondary to eosinophilic esophagitis. Dilated. - No gross lesions in the entire stomach. - Large hiatal hernia. - Normal first portion of the duodenum. - Biopsies were taken with a cold forceps for evaluation of eosinophilic esophagitis. Recommendation: - Discharge patient to home. - Advance diet as tolerated. - Continue present medications. - Await pathology results. Procedure Code(s): --- Professional --- 49492, Esophagogastroduodenoscop y, flexible, transoral; with insertion of guide wire followed by passage of dilator(s) through esophagus over guide wire 68398, 59,51, Esophagogastroduodenoscop y, flexible, transoral; with biopsy, single or multiple CPT copyright 2021 [employer]. All rights reserved. The codes documented in this report are preliminary and upon senior trial attorney review may be revised to meet current compliance requirements. Roque Herrera DO 10/05/2024 9:18:15 AM This report has been signed electronically. Number of Addenda: 0 Note Initiated On: 10/05/2024 8:39 AM 10/05/24917 Date Roque Herrera DO Cosigner Signature: Date (if indicated) CC: Alisson Morton DO; Roque Herrera DO Date Dictated: 10/05/24838 Date Transcribed: Ophthalmic Surgical Assistant: REBECA Signed [facility] MR/OP.Nhan 10-05-2024 MR/OP.[facility] Medical Records Department [address] [place] [address] Provation Physician Letter MR#: [id number] Acct: [id number] Name: RICARDO VILLALPANDO Rep #: [id number] : 1940 83 From: Roque Herrera DO PCP: Alisson Morton DO Status:REG [facility] 10/05/2024 Alisson Morton Re : Upper GI endoscopy procedure for Ricardo Villalpando Dear Praveen This procedure was performed on September. My impressions and recommendations are as follows: Impressions : - Esophageal mucosal changes secondary to eosinophilic esophagitis. Dilated. - No gross lesions in the entire stomach. - Large hiatal hernia. - Normal first portion of the duodenum. - Biopsies were taken with a cold forceps for evaluation of eosinophilic esophagitis. Recommendations : - Discharge patient to home. - Advance diet as tolerated. - Continue present medications. - Await pathology results. My findings are described in the full procedure note, which is enclosed. If I can be of further assistance, please feel free to contact me at . Sincerely, Roque Herrera DO 10/05/2024 9:18:15 AM This report has been signed electronically. 10/05/24917 Date Roque Coelho Signature: Date (if indicated) CC: Alisson Morton DO; Roque Herrera DO Date Dictated: 10/05/24838 Date Transcribed: Ophthalmic Surgical Assistant: REBECA Signed [facility] MR/POSTOP.Judy 10-05-2024 MR/POSTOP.[facility] Medical Records Department [address] [place] [address] Anesthesia Postop Eval I 10/05/24920 MR#: [id number] Acct: [id number] Name: RICARDO VILLALPANDO Rep #: [id number] : 1940 83 From: Artem Oh PCP: Alisson Morton DO Status:REG [facility] Y Race: C Location: [place] [address] Anesthesia: Postop Eval I Current Vital Signs Temperature: 97.7 F Pulse Rate: 76 Blood Pressure: 118/66 Respiratory Rate: 16 Pulse Ox: 97 Oxygen Delivery Method: Room Air Assessment Airway patent: Yes Spontaneous unlabored respirations: Yes Mental status: Asleep nausea: No Vomiting: No Anesthesia Complication: No Fluid Hydration Crystalloid volume administer (ml): 300 Total IV fluid infused: 300 Progress Note Anesthesia document: Postop Eval 1 completed: Yes 10/05/24920 Date Artem Driscoll Signature: Date CC: Signed [facility] Special Stain Group Ion 09-09 Special Stain Group I ------- Patient Age/Sex Location Account Attending Physician RICARDO VILLALPANDO 83/F EN [id number] Roque Herrera DO Specimen: [id number] Received: 10/05/24 Status: REBECCA Guan Num: [id number] Spec Type: EGD BIOPSY Jessica Dr: Roque Herrera DO HEADER OPERATION: EGD, biopsy, dilation PRE-OP DIAGNOSIS: Dysphagia, esophageal stenosis TISSUE SUBMITTED: A- Random esophagus biopsy MICROSCOPIC DIAGNOSIS A. 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 - PASD stain is negative for fungal organisms. MICROSCOPIC DESCRIPTION Slides are reviewed. ???All matched controls reacted appropriately. These tests were developed and their performance characteristics determined by [facility]. They may not have been cleared or approved by the U.S. Food and Drug Administration. The FDA has determined that such clearance or approval is not necessary.??? The above immunohistochemical???mar kers and/or special stains have been reviewed by the Pathologist. GROSS DESCRIPTION A. Received in fixative is one container labeled with the patient's name and designated Random esophagus biopsy." The specimen consists of multiple irregular fragments of light [place] soft tissue that in aggregate measure 1 x 0.6 x 0.2 cm. The specimen is totally submitted in one cassette. PA 10/05/2024 [facility]:[id number] ,[id number] Patient Age/Sex Location Account Attending Physician RICARDO VILLALPANDO 83/F EN [id number] Roque Friend, DO Signed (signature on file) Dr. Ximena Sheikh MD 10/23/24 1614 Normal [facility] Comment on above: Performed By: #### P SSI #### [facility] [address] [place], [place], [id number] Absolute lymphocyte countOrd ered By: Anabel Duvall on 09-14-2024 Lymphocytes Auto (Unsp spec) [#/Vol] 1.15 10*3/uL 0.83-4.51 [facility] Absolute neutrophil countOrd ered By: Anabel Duvall on 09-14-2024 Neutrophils (Bld) [#/Vol] 3.2 10*3/uL 2.0-7.7 [facility] Anion gap in Serum or Plasma Ordered By: Anabel Duvall on 09-14-2024 Anion gap [Moles/Vol] 11 mmol/L 5-15 [facility] Automated lymphocyte count a s percentage of total leukocytesOrdered By: Anabel Duvall on 09-14-2024 Lymphocytes/100 WBC Auto (Unsp spec) 22.9 % 19-41 [facility] BUN/creatinine ratioOrdered By: Anabel Duvall on 09-14-2024 Urea nitrogen/Creatinine [Mass ratio] 23.3 mg/mg High 10-20 [facility] Basophil percentageOrdered B y: Anabel Duvall on 09-14-2024 Basophils/100 WBC (Bld) 1.2 % High 0-1 [facility] Bilirubin, totalOrdered By: Anabel Duvall on 09-14-2024 Bilirubin [Mass/Vol] 0.33 mg/dL 0.00-1.30 [facility] Carbon dioxide, total [Moles /volume] in Central venous bloodOrdered By: Anabel Duvall on 09-14-2024 CO2 [Moles/Vol] 26.7 mmol/L 21.0-32.0 [facility] Chloride assayOrdered By: Luna Duvall on 09-14-2024 Chloride [Moles/Vol] 103 mmol/L 98-108 [facility] Eosinophil percentageOrdered By: Anabel Duvall on 09-14-2024 Eosinophils/100 WBC (Bld) 3.6 % 0-5 [facility] Erythrocyte distribution wid th ratioOrdered By: Anabel Duvall on 09-14-2024 Erythrocyte distribution width (RBC) [Ratio] 13.1 % 11.6-14.6 [facility] Erythrocyte distribution wid th standard deviationOrdered By: Anabel Duvall on 09-14-2024 Erythrocyte distribution width (RBC) [Ratio] 42.5 fl 35.1-43.9 [facility] Glomerular filtration rate ( GFR) estimation/1.73 sq m using serum, plasma, or whole bOrdered By: Anabel Duvall on 09-14-2024 GFR/1.73 sq M.predicted among non-blacks MDRD (S/P/Bld) [Vol rate/Area] 68 mL/min/{1.73_m2} >60 [facility] Comment on above: mL/min/1.73m2 CKD-EP I Creatinine Equation (2020) Hematocrit Auto (Bld) [Volum e fraction]Ordered By: Anabel Duvall on 09-14-2024 Hematocrit (Bld) [Volume fraction] 30.0 % Low 37-47 [facility] Hemoglobin A1c percentageOrd ered By: Anabel Duvall on 09-14-2024 HbA1c (Bld) [Mass fraction] 6.1 % High <5.7 [facility] Comment on above: Normal < 5.7 % Predi abetic 5.7 - 6.4 % Diabetic >or= 6.5 % Please note range changes. Hemoglobin measurementOrdere d By: Anabel Duvall on 09-14-2024 Hemoglobin (Bld) [Mass/Vol] 9.7 g/dL Low 12.0-15.0 [facility] Immature granulocytes/100 WB C Auto (Bld)Ordered By: Anabel Duvall on 09-14-2024 Immature granulocytes/100 WBC (Bld) 0.400 % 0.0-0.9 [facility] Comment on above: IG% - Immature Granu locytes (promyelocytes, myelocytes and metamyelocytes) > 1% indicates that a LEFT SHIFT is Present. Laboratory - Chemistry and C hemistry - challengeOrdered By: Anabel Duvall on 09-14-2024 AST [Catalytic activity/Vol] 64 U/L High <32 [facility] MCV (mean corpuscular volume ) determinationOrdered By: Anabel Duvall on 09-14-2024 MCV (RBC) [Entitic vol] 88.8 fL 81-99 [facility] Mean corpuscular hemoglobin (MCH) determinationOrdered By: kuntuletajono Duvall on 09-14-2024 MCH (RBC) [Entitic mass] 28.7 pg 27.0-32.0 [facility] Mean corpuscular hemoglobin concentration (MCHC) determinationOrdered By: nav Duvall on 09-14-2024 MCHC (RBC) [Mass/Vol] 32.3 g/dL 32-36 [facility] Mean platelet volume determi nationOrdered By: Anabel Duvall on 09-14-2024 Platelet mean volume (Bld) [Entitic vol] 12.3 fL High 6.2-12.0 [facility] Monocyte percentageOrdered B y: Anabel Duvall on 09-14-2024 Monocytes/100 WBC (Bld) 8.7 % 0-10 [facility] Neutrophil percentageOrdered By: kuntuletajono Duvall on 09-14-2024 Neutrophils/100 WBC (Bld) 63.2 % 47-70 [facility] Nucleated red blood cell per centageOrdered By: nav Duvall on 09-14-2024 Nucleated RBC/100 WBC (Bld) [Ratio] 0 % 0-5 [facility] Platelet countOrdered By: Luna Duvall on 09-14-2024 Platelets (Bld) [#/Vol] 197 10*3/uL 150-450 [facility] Potassium measurement (mass/ volume)Ordered By: Anabel Duvall on 09-14-2024 Potassium (Unsp spec) [Mass/Vol] 3.9 mmol/L 3.3-5.1 [facility] RBC Auto (Bld) [#/Vol]Ordere d By: Anabel Duvall on 09-14-2024 RBC (Bld) [#/Vol] 3.38 10*6/uL Low 4.2-5.4 [facility] Serum creatinine measurement (mass/volume)Ordered By: Anabel Duvall on 09-14-2024 Creatinine [Mass/Vol] 0.86 mg/dL 0.70-1.20 [facility] Serum globulin measurementOr dered By: Anabel Duvall on 09-14-2024 Globulin (S) [Mass/Vol] 3.9 g/dL 2.2-4.2 [facility] Serum glucose measurement (m ass/volume)Ordered By: Anabel Duvall on 09-14-2024 Glucose [Mass/Vol] 109 mg/dL High 70-99 [facility] Serum or plasma alanine gtz otransferase (ALT) measurementOrdered By: Anabel Duvall on 09-14-2024 ALT [Catalytic activity/Vol] 31 U/L <35 [facility] Serum or plasma albumin blanco urement (mass/volume)Ordered By: Anabel Duvall on 09-14-2024 Albumin [Mass/Vol] 3.4 g/dL 3.4-4.8 [facility] Serum or plasma albumin/glob ulin mass ratioOrdered By: Anabel Duvall on 09-14-2024 Albumin/Globulin [Mass ratio] 0.9 {ratio} 0.9-2.4 [facility] Serum or plasma alkaline javier sphatase measurementOrdered By: Anabel Duvall 09-14-2024 ALP [Catalytic activity/Vol] 391 U/L High 35-104 [facility] Serum or plasma calcium blanco urement (mass/volume)Ordered By: Anabel Duvall on 09-14-2024 Calcium [Mass/Vol] 8.9 mg/dL 7.6-11.0 [facility] Serum or plasma urea nitroge n measurement (mass/volume)Ordered By: Anabel Duvall on 09-14-2024 Urea nitrogen [Mass/Vol] 20 mg/dL High 4-19 [facility] Sodium levelOrdered By: Chino Duvall on 09-14-2024 Sodium [Moles/Vol] 140 mmol/L 133-145 [facility] Total proteinOrdered By: Shan Duvall on 09-14-2024 Protein [Mass/Vol] 7.3 g/dL 5.9-8.4 [facility] White blood cell (WBC) count Ordered By: Anabel Duvall on 09-14-2024 WBC (Bld) [#/Vol] 5.0 10*3/uL 4.4-11.0 [facility] Absolute lymphocyte countOrd ered By: Anabel Duvall on 08-18-2024 Lymphocytes Auto (Unsp spec) [#/Vol] 1.85 10*3/uL 0.83-4.51 [facility] Absolute neutrophil countOrd ered By: Anabel Duvall on 08-18-2024 Neutrophils (Bld) [#/Vol] 4.1 10*3/uL 2.0-7.7 [facility] Automated lymphocyte count a s percentage of total leukocytesOrdered By: Anabel Chanolito on 08-18-2024 Lymphocytes/100 WBC Auto (Unsp spec) 26.5 % 19-41 [facility] Basophil percentageOrdered B y: Anabel Duvall on 08-18-2024 Basophils/100 WBC (Bld) 1.0 % 0-1 [facility] ECG 12 lead - CLINIC PERFORM EDon 08-18-2024 [facility] Undetermined Rhythm , probable sinus Low voltage in limb leads. -Old inferior infarct -Decreasing R-wave progression -may be secondary to pulmonary disease consider old anterior infarct. -Nonspecific T-abnormality. ABNORMAL [facility] Eosinophil percentageOrdered By: Anabel Chanogracejuana on 08-18-2024 Eosinophils/100 WBC (Bld) 4.2 % 0-5 [facility] Erythrocyte distribution wid th ratioOrdered By: Anabel Duvall on 08-18-2024 Erythrocyte distribution width (RBC) [Ratio] 13.4 % 11.6-14.6 [facility] Erythrocyte distribution wid th standard deviationOrdered By: Anabel Duvall on 08-18-2024 Erythrocyte distribution width (RBC) [Ratio] 43.8 fl 35.1-43.9 [facility] Gastroenterology Visit Repor ton 08-18-2024 Gastroenterology Visit Report [facility] Gastroenterology [address] [place] [address] OFFICE VISIT Date of Service: 08/18/24 MR#: [id number] Acct: [id number] Name: RICARDO VILLALPANDO Rep #: [id number] : 1940 Provider: DREW landry Age/Sex: 83/F [place] [facility] [place] Status: Signed Intake Vital Signs 11/22/23 [...] Paroxysmal atrial fibrillation Atherosclerotic heart disease of [place] coronary artery without angina pectoris Persistent atrial [...] sandwich. BM are normal. Continues with omeprazole. ..24 EGD - Benign-appearing esophageal stenosis(endoscope could not [...] 08.18.24 OV She presents with staff from [place]. 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 Normal [facility] Hematocrit Auto (Bld) [Volum e fraction]Ordered By: Anabel Duvall on 08-18-2024 Hematocrit (Bld) [Volume fraction] 33.3 % Low 37-47 [facility] Hemoglobin measurementOrdere d By: Anabel Duvall on 08-18-2024 Hemoglobin (Bld) [Mass/Vol] 10.7 g/dL Low 12.0-15.0 [facility] Immature granulocytes/100 WB C Auto (Bld)Ordered By: Anabel Duvall on 08-18-2024 Immature granulocytes/100 WBC (Bld) 0.300 % 0.0-0.9 [facility] Comment on above: IG% - Immature Granu locytes (promyelocytes, myelocytes and metamyelocytes) > 1% indicates that a LEFT SHIFT is Present. MCV (mean corpuscular volume ) determinationOrdered By: Anabel Duvall on 08-18-2024 MCV (RBC) [Entitic vol] 89.3 fL 81-99 [facility] Mean corpuscular hemoglobin (MCH) determinationOrdered By: Anabel Duvall on 08-18-2024 MCH (RBC) [Entitic mass] 28.7 pg 27.0-32.0 [facility] Mean corpuscular hemoglobin concentration (MCHC) determinationOrdered By: Lunanav Maddengracejuana on 08-18-2024 MCHC (RBC) [Mass/Vol] 32.1 g/dL 32-36 [facility] Mean platelet volume determi nationOrdered By: Anabel Duvall on 08-18-2024 Platelet mean volume (Bld) [Entitic vol] 12.2 fL High 6.2-12.0 [facility] Monocyte percentageOrdered B y: Albarojono Maddengracejuana on 08-18-2024 Monocytes/100 WBC (Bld) 8.6 % 0-10 [facility] Neutrophil percentageOrdered By: Anabel Maddengracejuana on 08-18-2024 Neutrophils/100 WBC (Bld) 59.4 % 47-70 [facility] Nucleated red blood cell per centageOrdered By: Chinojulijono Maddengracejuana on 08-18-2024 Nucleated RBC/100 WBC (Bld) [Ratio] 0 % 0-5 [facility] Office Visiton 08-18-2024 Follow-up visit [id number] Jayna Villalpando 1940 F Date Provider Department Center 08/18/2024 [id number] [place] [facility] [place] Family History Problem Relation Age of Onset High Blood Pressure Mother Heart disease Brother Cancer Brother Coronary artery disease Brother High Blood Pressure Brother Diabetes Brother Family Status - Relation Status Age at Mother Father Brother Level of Service:02875 [place] OFFICE/OUTPATIENT ESTABLISHED MOD MDM 30 MIN Reason for Visit and Comments: 1 Year Follow-up [670] Coronary Artery Disease [187] Normal [facility] Platelet countOrdered By: Luna anyajono Duvall on 08-18-2024 Platelets (Bld) [#/Vol] 202 10*3/uL 150-450 [facility] Progress Noteon 08-18-2024 Progress Note [facility] Card[facility] [place] [address] [address] [facility] [address] [facility] [address] Dept: [phone] Dept Visit type: Established : 1940 Chief Complaint: Chief Complaint Patient presents with 1 Year Follow-up Coronary Artery Disease History of Present Illness: Ricardo Villalpando is a 83 y.o. female who is here in follow-up with her daughter. She has advanced dementia. She now lives in a long-term. There have not been complaints of chest [...] BUN 18 (H) 09/24/2022 [facility]85 [facility] Results Component Value Date CHOL 143 [...] and Plan: 1. Coronary artery disease involving [place] coronary artery of [place] heart without angina pectoris 2. Persistent atrial fibrillation (HCC) 3. Mixed hyperlipidemia 1. Coronary artery disease: She has a history of remote stenting. She is doing well with no symptoms of angina per the long-term. Continued medical therapy is recommended. 2. History of prior atrial fibrillation: She has not had any documented recurrence. She is not anticoagulated due to risks. 3. Hyperlipidemia: On therapy. 4. Advanced dementia. [1] Past Medical History: Diagnosis Date Anemia Anxiety GERD (gastroesophageal reflux disease) H/O heart artery stent 08/04/2018 History of blood transfusion Hx of blood clots (more content not included)... Normal [facility] RBC Auto (Bld) [#/Vol]Ordere d By: Anabel Duvall on 08-18-2024 RBC (Bld) [#/Vol] 3.73 10*6/uL Low 4.2-5.4 [facility] White blood cell (WBC) count Ordered By: Anabel Duvall on 08-18-2024 WBC (Bld) [#/Vol] 7.0 10*3/uL 4.4-11.0 [facility] Bilirubin Test strip Ql (U)O rdered By: Anabel Duvall on 08-17-2024 Bilirubin Ql (U) Negative Negative [facility] Ketones Test strip Ql (U)Ord ered By: Anabel Duvall on 08-17-2024 Ketones Ql (U) Negative Negative [facility] Microscopic analysis of urin e for red blood cells (RBC)Ordered By: Anabel Duvall on 08-17-2024 Microscopic analysis of urine for red blood cells (RBC) 0 SEEN /hpf 0-5 [facility] Mucus LM Ql (Urine sed)Order ed By: Anabel Duvall on 08-17-2024 Mucus Ql (Urine sed) 0 SEEN /hpf [facility] Nitrite Test strip Ql (U)Ord ered By: Anabel Duvall on 08-17-2024 Nitrite Ql (U) Negative Negative [facility] Protein Test strip Ql (U)Ord ered By: Anabel Duvall on 08-17-2024 Protein Ql (U) 15 mg/dl High Negative [facility] Squamous epithelial cells de tection in urine sediment by light microscopyOrdered By: Anabel Duvall on 08-17-2024 Epithelial cells.squamous LM Ql (Urine sed) 0-5 SEEN /hpf 5-10 [facility] Urine clarityOrdered By: Shan Duvall on 08-17-2024 Clarity (U) Sl. Cloudy Clear [facility] Urine color determinationOrd ered By: Anabel Duvall on 08-17-2024 Color (U) Yellow Yellow [facility] Urine cultureOrdered By: Shan Duvall on 08-17-2024 Bacteria identified Cx Nom (U) Escherichia coli Abnormal [facility] Urine glucose detectionOrder ed By: Anabel Duvall on 08-17-2024 Glucose Ql (U) Normal mg/dl Normal [facility] Urine leukocyte esterase det ection by dipstickOrdered By: Anabel Duvall on 08-17-2024 Leukocyte esterase Test strip Ql (U) 500 /ul High Negative [facility] Urine pHOrdered By: Yoseph Duvall on 08-17-2024 pH (U) 6.0 [pH] 5.0 - 8.0 [facility] Urine sediment bacteria coun t by microscopy (number/high power field)Ordered By: Anabel Duvall on 08-17-2024 Bacteria LM.HPF (Urine sed) [#/Area] 2 /[HPF] None Seen [facility] Urine specific gravity measu rementOrdered By: Anabel Duvall on 08-17-2024 Specific gravity (U) [Rel density] 1.015 1.002-1.030 [facility] Urine urobilinogen measureme ntOrdered By: Anabel Duvall on 08-17-2024 Urobilinogen Ql (U) Normal mg/dl Normal [facility] White blood cell countOrdere d By: Anabel Duvall on 08-17-2024 White blood cell count 25-50 SEEN /hpf 0-5 [facility] Absolute lymphocyte countOrd ered By: Anabel Duvall on 08-09-2024 Lymphocytes Auto (Unsp spec) [#/Vol] 1.22 10*3/uL 0.83-4.51 [facility] Absolute neutrophil countOrd ered By: Anabel Duvall on 08-09-2024 Neutrophils (Bld) [#/Vol] 2.7 10*3/uL 2.0-7.7 [facility] Automated lymphocyte count a s percentage of total leukocytesOrdered By: Anabel Duvall on 08-09-2024 Lymphocytes/100 WBC Auto (Unsp spec) 27.1 % 19-41 [facility] Basophil percentageOrdered B y: anyajono Maddengracejuana on 08-09-2024 Basophils/100 WBC (Bld) 0.9 % 0-1 [facility] Eosinophil percentageOrdered By: [facility] on 08-09-2024 Eosinophils/100 WBC (Bld) 3.8 % 0-5 [facility] Erythrocyte distribution wid th ratioOrdered By: [facility] on 08-09-2024 Erythrocyte distribution width (RBC) [Ratio] 13.3 % 11.6-14.6 [facility] Erythrocyte distribution wid th standard deviationOrdered By: [facility] on 08-09-2024 Erythrocyte distribution width (RBC) [Ratio] 43.3 fl 35.1-43.9 [facility] Hematocrit Auto (Bld) [Volum e fraction]Ordered By: [facility] on 08-09-2024 Hematocrit (Bld) [Volume fraction] 30.2 % Low 37-47 [facility] Hemoglobin measurementOrdere d By: nav Duvall on 08-09-2024 Hemoglobin (Bld) [Mass/Vol] 9.9 g/dL Low 12.0-15.0 [facility] Immature granulocytes/100 WB C Auto (Bld)Ordered By: nav Maddengracejuana on 08-09-2024 Immature granulocytes/100 WBC (Bld) 0.200 % 0.0-0.9 [facility] Comment on above: IG% - Immature Granu locytes (promyelocytes, myelocytes and metamyelocytes) > 1% indicates that a LEFT SHIFT is Present. MCV (mean corpuscular volume ) determinationOrdered By: nav Duvall on 08-09-2024 MCV (RBC) [Entitic vol] 88.6 fL 81-99 [facility] Mean corpuscular hemoglobin (MCH) determinationOrdered By: Anabel Duvall on 08-09-2024 MCH (RBC) [Entitic mass] 29.0 pg 27.0-32.0 [facility] Mean corpuscular hemoglobin concentration (MCHC) determinationOrdered By: Anabel Duvall on 08-09-2024 MCHC (RBC) [Mass/Vol] 32.8 g/dL 32-36 [facility] Mean platelet volume determi nationOrdered By: Anabel Duvall on 08-09-2024 Platelet mean volume (Bld) [Entitic vol] 12.1 fL High 6.2-12.0 [facility] Monocyte percentageOrdered B y: Anabel Duvall on 08-09-2024 Monocytes/100 WBC (Bld) 9.1 % 0-10 [facility] Neutrophil percentageOrdered By: Anabel Duvall on 08-09-2024 Neutrophils/100 WBC (Bld) 58.9 % 47-70 [facility] Nucleated red blood cell per centageOrdered By: Anabel Duvall on 08-09-2024 Nucleated RBC/100 WBC (Bld) [Ratio] 0 % 0-5 [facility] Platelet countOrdered By: Luna Duvall on 08-09-2024 Platelets (Bld) [#/Vol] 164 10*3/uL 150-450 [facility] RBC Auto (Bld) [#/Vol]Ordere d By: Anabel Duvall on 08-09-2024 RBC (Bld) [#/Vol] 3.41 10*6/uL Low 4.2-5.4 [facility] White blood cell (WBC) count Ordered By: Anabel Duvall on 08-09-2024 WBC (Bld) [#/Vol] 4.5 10*3/uL 4.4-11.0 [facility] Absolute lymphocyte countOrd ered By: Anabel Duvall on 06-12-2024 Lymphocytes Auto (Unsp spec) [#/Vol] 1.40 10*3/uL 0.83-4.51 [facility] Absolute neutrophil countOrd ered By: Anabel Duvall on 06-12-2024 Neutrophils (Bld) [#/Vol] 2.6 10*3/uL 2.0-7.7 [facility] Anion gap in Serum or Plasma Ordered By: Anabel Duvall on 06-12-2024 Anion gap [Moles/Vol] 10 mmol/L 5-15 [facility] Automated lymphocyte count a s percentage of total leukocytesOrdered By: Anabel Duvall on 06-12-2024 Lymphocytes/100 WBC Auto (Unsp spec) 30.2 % 19-41 [facility] BUN/creatinine ratioOrdered By: Anabel Duvall on 06-12-2024 Urea nitrogen/Creatinine [Mass ratio] 22.8 mg/mg High 10-20 [facility] Basophil percentageOrdered B y: Anabel Duvall on 06-12-2024 Basophils/100 WBC (Bld) 1.1 % High 0-1 [facility] Bilirubin, totalOrdered By: Anabel Duvall on 06-12-2024 Bilirubin [Mass/Vol] 0.40 mg/dL 0.00-1.30 [facility] Calculated very low density lipoprotein (VLDL) cholesterol measurementOrdered By: nav Duvall on 06-12-2024 Calculated very low density lipoprotein (VLDL) cholesterol measurement 15 mg/dL 5-40 [facility] Carbon dioxide, total [Moles /volume] in Central venous bloodOrdered By: Anabel Duvall on 06-12-2024 CO2 [Moles/Vol] 25.5 mmol/L 21.0-32.0 [facility] Chloride assayOrdered By: Luna Duvall on 06-12-2024 Chloride [Moles/Vol] 103 mmol/L 98-108 [facility] Eosinophil percentageOrdered By: Anabel Duvall on 06-12-2024 Eosinophils/100 WBC (Bld) 5.0 % 0-5 [facility] Erythrocyte distribution wid th ratioOrdered By: Anabel Duvall on 06-12-2024 Erythrocyte distribution width (RBC) [Ratio] 13.8 % 11.6-14.6 [facility] Erythrocyte distribution wid th standard deviationOrdered By: Anabel Duvall on 06-12-2024 Erythrocyte distribution width (RBC) [Ratio] 43.5 fl 35.1-43.9 [facility] Glomerular filtration rate ( GFR) estimation/1.73 sq m using serum, plasma, or whole bOrdered By: Anabel Duvall on 06-12-2024 GFR/1.73 sq M.predicted among non-blacks MDRD (S/P/Bld) [Vol rate/Area] 62 mL/min/{1.73_m2} >60 [facility] Comment on above: mL/min/1.73m2 CKD-EP I Creatinine Equation (2020) Hematocrit Auto (Bld) [Volum e fraction]Ordered By: Anabel Duvall on 06-12-2024 Hematocrit (Bld) [Volume fraction] 30.3 % Low 37-47 [facility] Hemoglobin A1c percentageOrd ered By: Anabel Duvall on 06-12-2024 HbA1c (Bld) [Mass fraction] 6.2 % High <5.7 [facility] Comment on above: Normal < 5.7 % Predi abetic 5.7 - 6.4 % Diabetic >or= 6.5 % Please note range changes. Hemoglobin measurementOrdere d By: Anabel Duvall on 06-12-2024 Hemoglobin (Bld) [Mass/Vol] 9.9 g/dL Low 12.0-15.0 [facility] Immature granulocytes/100 WB C Auto (Bld)Ordered By: Anabel Duvall on 06-12-2024 Immature granulocytes/100 WBC (Bld) 0.200 % 0.0-0.9 [facility] Comment on above: IG% - Immature Granu locytes (promyelocytes, myelocytes and metamyelocytes) > 1% indicates that a LEFT SHIFT is Present. LDL calc ser/plasOrdered By: Anabel Duvall on 06-12-2024 Cholesterol in LDL [Mass/Vol] 85 mg/dL [facility] Comment on above: Czzuvkxgoe=022-691 m g/dL & Higher Tntp=986 mg/dL or greater Laboratory - Chemistry and C hemistry - challengeOrdered By: Anabel Duvall on 06-12-2024 AST [Catalytic activity/Vol] 48 U/L High <32 [facility] MCV (mean corpuscular volume ) determinationOrdered By: Anabel Duvall on 06-12-2024 MCV (RBC) [Entitic vol] 88.1 fL 81-99 [facility] Mean corpuscular hemoglobin (MCH) determinationOrdered By: Anabel Duvall on 06-12-2024 MCH (RBC) [Entitic mass] 28.8 pg 27.0-32.0 [facility] Mean corpuscular hemoglobin concentration (MCHC) determinationOrdered By: Anabel Duvall on 06-12-2024 MCHC (RBC) [Mass/Vol] 32.7 g/dL 32-36 [facility] Mean platelet volume determi nationOrdered By: Anabel Duvall on 06-12-2024 Platelet mean volume (Bld) [Entitic vol] 12.3 fL High 6.2-12.0 [facility] Monocyte percentageOrdered B y: Anabel Duvall on 06-12-2024 Monocytes/100 WBC (Bld) 7.8 % 0-10 [facility] Neutrophil percentageOrdered By: Anabel Duvall on 06-12-2024 Neutrophils/100 WBC (Bld) 55.7 % 47-70 [facility] Nucleated red blood cell per centageOrdered By: Anabel Duvall on 06-12-2024 Nucleated RBC/100 WBC (Bld) [Ratio] 0 % 0-5 [facility] Platelet countOrdered By: Luna Duvall on 06-12-2024 Platelets (Bld) [#/Vol] 163 10*3/uL 150-450 [facility] Potassium measurement (mass/ volume)Ordered By: Anabel Duvall on 06-12-2024 Potassium (Unsp spec) [Mass/Vol] 3.7 mmol/L 3.3-5.1 [facility] RBC Auto (Bld) [#/Vol]Ordere d By: Anabel Duvall on 06-12-2024 RBC (Bld) [#/Vol] 3.44 10*6/uL Low 4.2-5.4 [facility] Screening total cholesterol/ high density lipoprotein (HDL) cholesterol ratioOrdered By: Anabel Duvall on 06-12-2024 Cholesterol.total/Chol esterol in HDL [Mass ratio] 2.87 {ratio} [facility] Serum creatinine measurement (mass/volume)Ordered By: Anabel Duvall on 06-12-2024 Creatinine [Mass/Vol] 0.92 mg/dL 0.70-1.20 [facility] Serum globulin measurementOr dered By: Anabel Duvall on 06-12-2024 Globulin (S) [Mass/Vol] 4.1 g/dL 2.2-4.2 [facility] Serum glucose measurement (m ass/volume)Ordered By: Anabel Duvall on 06-12-2024 Glucose [Mass/Vol] 98 mg/dL 70-99 [facility] Serum or plasma alanine gtz otransferase (ALT) measurementOrdered By: Anabel Duvall on 06-12-2024 ALT [Catalytic activity/Vol] 28 U/L <35 [facility] Serum or plasma albumin blanco urement (mass/volume)Ordered By: Anabel Duvall on 06-12-2024 Albumin [Mass/Vol] 3.2 g/dL Low 3.4-4.8 [facility] Serum or plasma albumin/glob ulin mass ratioOrdered By: Anabel Duvall on 06-12-2024 Albumin/Globulin [Mass ratio] 0.8 {ratio} Low 0.9-2.4 [facility] Serum or plasma alkaline javier sphatase measurementOrdered By: Anabel Duvall on 06-12-2024 ALP [Catalytic activity/Vol] 323 U/L High 35-104 [facility] Serum or plasma calcium blanco urement (mass/volume)Ordered By: Anabel Duvall on 06-12-2024 Calcium [Mass/Vol] 9.1 mg/dL 7.6-11.0 [facility] Serum or plasma cholesterol in HDL measurement (mass/volume)Ordered By: Anabel Duvall on 06-12-2024 Cholesterol in HDL [Mass/Vol] 53 mg/dL >40 [facility] Comment on above: National Cholesterol Education Program (NCEP) guidelines:<40 mg/dL: Low HDL-cholesterol (major risk factor for CHD)>= 60 mg/dL: High HDL-cholesterol (negative risk factor for CHD)HDL-cholesterol is affected by a number of factors, e.g. smoking, exercise, hormones, sex and age. Serum or plasma cholesterol measurement (mass/volume)Ordered By: Anabel Duvall on 06-12-2024 Cholesterol [Mass/Vol] 153 mg/dL <201 [facility] Comment on above: Cholesterol level, D esirable <200 mg/dLBorderline high cholesterol 200-239 mg/dLHigh cholesterol >=240 mg/dLRecommendations of the NCEP Adult Treatment Panel for the following risk-cutoff thresholds for the [place] population. Serum or plasma urea nitroge n measurement (mass/volume)Ordered By: Anabel Duvall on 06-12-2024 Urea nitrogen [Mass/Vol] 21 mg/dL High 4-19 [facility] Sodium levelOrdered By: Chino olesya Eloina on 06-12-2024 Sodium [Moles/Vol] 139 mmol/L 133-145 [facility] Total proteinOrdered By: Shan dicksonjono Duvall on 06-12-2024 Protein [Mass/Vol] 7.4 g/dL 5.9-8.4 [facility] Triglycerides measurementOrd ered By: Anabel Duvall on 06-12-2024 Triglyceride [Mass/Vol] 75 mg/dL <199 [facility] Comment on above: The drugs N-Acetylcy steine and Metamizole may falsely depress this assay. Normal range: <150 mg/dLBorderline High: 150-199 mg/dLHigh: 200-499 mg/dLVery High: >500 mg/dL White blood cell (WBC) count Ordered By: Anabel Duvall on 06-12-2024 WBC (Bld) [#/Vol] 4.6 10*3/uL 4.4-11.0 [facility] Absolute lymphocyte countOrd ered By: Anabel Duvall on 03-16-2024 Lymphocytes Auto (Unsp spec) [#/Vol] 1.69 10*3/uL 0.83-4.51 [facility] Absolute neutrophil countOrd ered By: Anabel Duvall on 03-16-2024 Neutrophils (Bld) [#/Vol] 2.5 10*3/uL 2.0-7.7 [facility] Albumin to globulin ratioOrd ered By: Anabel Duvall on 03-16-2024 Albumin/Globulin [Mass ratio] 0.5 {ratio} Low 0.9-2.4 [facility] Automated lymphocyte count a s percentage of total leukocytesOrdered By: Anabel Duvall on 03-16-2024 Lymphocytes/100 WBC Auto (Unsp spec) 35.0 % 19-41 [facility] Basophil percentageOrdered B y: Anabel Duvall on 03-16-2024 Basophils/100 WBC (Bld) 0.8 % 0-1 [facility] Bilirubin, totalOrdered By: Anabel Duvall on 03-16-2024 Bilirubin [Mass/Vol] 0.30 mg/dL 0.20-1.00 [facility] Comment on above: For patients on eltr ombopag therapy, use of Dimension [place] TBIL is not recommended. Blood urea nitrogen (BUN)/cr eatinine ratioOrdered By: Anabel Duvall on 03-16-2024 Urea nitrogen/Creatinine [Mass ratio] 25.9 mg/mg High 10-20 [facility] Carbon dioxide measurementOr dered By: Anabel Duvall on 03-16-2024 CO2 [Moles/Vol] 29.0 mmol/L 21.0-32.0 [facility] Chloride measurementOrdered By: Anabel Duvall on 03-16-2024 Chloride [Moles/Vol] 104 mmol/L 98-107 [facility] Eosinophil percentageOrdered By: Anabel Duvall on 03-16-2024 Eosinophils/100 WBC (Bld) 3.3 % 0-5 [facility] Erythrocyte distribution wid th ratioOrdered By: Anabel Duvall on 03-16-2024 Erythrocyte distribution width (RBC) [Ratio] 13.3 % 11.6-14.6 [facility] Erythrocyte distribution wid th standard deviationOrdered By: Anabel Duvall on 03-16-2024 Erythrocyte distribution width (RBC) [Ratio] 45.3 fl High 35.1-43.9 [facility] Glomerular filtration rate ( GFR) estimationOrdered By: Lunakunjulijono Maddengracejuana on 03-16-2024 GFR/1.73 sq M.predicted among non-blacks MDRD (S/P/Bld) [Vol rate/Area] 62 mL/min/{1.73_m2} >60 [facility] Comment on above: Non- GFR Calc Glucose measurementOrdered B y: Anabel Chanolito on 03-16-2024 Glucose [Mass/Vol] 104 mg/dL 74-106 [facility] Comment on above: Fasting Glucose resu lt from 100 to 125 mg/dL suggests IMPAIRED HOMEOSTASIS per A.D.A. criteria. Hematocrit Auto (Bld) [Volum e fraction]Ordered By: Anabel Duvall on 03-16-2024 Hematocrit (Bld) [Volume fraction] 33.5 % Low 37-47 [facility] Hemoglobin A1c percentageOrd ered By: Albarojono Maddengracejuana on 03-16-2024 HbA1c (Bld) [Mass fraction] 4.8 % 3.8-5.6 [facility] Comment on above: Normal < 5.7 % Predi abetic 5.7 - 6.4 % Diabetic >or= 6.5 % Please note range changes. Hemoglobin measurementOrdere d By: Albarojono Maddengracejuana on 03-16-2024 Hemoglobin (Bld) [Mass/Vol] 10.6 g/dL Low 12.0-15.0 [facility] Immature granulocytes/100 WB C Auto (Bld)Ordered By: Lunakunjulijono Maddengracejuana on 03-16-2024 Immature granulocytes/100 WBC (Bld) 0.200 % 0.0-0.9 [facility] Comment on above: IG% - Immature Granu locytes (promyelocytes, myelocytes and metamyelocytes) > 1% indicates that a LEFT SHIFT is Present. Laboratory - Chemistry and C hemistry - challengeOrdered By: Lunanav Duvall on 03-16-2024 AST [Catalytic activity/Vol] 63 U/L High 15-37 [facility] MCV (mean corpuscular volume ) determinationOrdered By: Anabel Duvall on 03-16-2024 MCV (RBC) [Entitic vol] 92.0 fL 81-99 [facility] Mean corpuscular hemoglobin (MCH) determinationOrdered By: Anabel Duvall on 03-16-2024 MCH (RBC) [Entitic mass] 29.1 pg 27.0-32.0 [facility] Mean corpuscular hemoglobin concentration (MCHC) determinationOrdered By: Anabel Duvall on 03-16-2024 MCHC (RBC) [Mass/Vol] 31.6 g/dL Low 32-36 [facility] Mean platelet volume determi nationOrdered By: Anabel Duvall on 03-16-2024 Platelet mean volume (Bld) [Entitic vol] 12.6 fL High 6.2-12.0 [facility] Monocyte percentageOrdered B y: Anabel Duvall on 03-16-2024 Monocytes/100 WBC (Bld) 9.1 % 0-10 [facility] Neutrophil percentageOrdered By: Anabel Duvall on 03-16-2024 Neutrophils/100 WBC (Bld) 51.6 % 47-70 [facility] Nucleated red blood cell per centageOrdered By: Anabel Duvall on 03-16-2024 Nucleated RBC/100 WBC (Bld) [Ratio] 0 % 0-5 [facility] Platelet countOrdered By: Luna Duvall on 03-16-2024 Platelets (Bld) [#/Vol] 183 10*3/uL 150-450 [facility] Potassium measurementOrdered By: Anabel Duvall on 03-16-2024 Potassium [Moles/Vol] 4.2 mmol/L 3.5-5.1 [facility] RBC Auto (Bld) [#/Vol]Ordere d By: Anabel Duvall on 03-16-2024 RBC (Bld) [#/Vol] 3.64 10*6/uL Low 4.2-5.4 [facility] Serum anion gap measurementO rdered By: Anabel Duvall on 03-16-2024 Anion gap [Moles/Vol] 6 mmol/L 5-15 [facility] Serum globulin measurementOr dered By: Anabel Duvall on 03-16-2024 Globulin (S) [Mass/Vol] 5.3 g/dL High 2.2-4.2 [facility] Serum or plasma alanine gtz otransferase (ALT) measurementOrdered By: Anabel Duvall on 03-16-2024 ALT [Catalytic activity/Vol] 51 U/L 13-56 [facility] Serum or plasma albumin blanco urement (mass/volume)Ordered By: Anabel Duvall on 03-16-2024 Albumin [Mass/Vol] 2.9 g/dL Low 3.2-5.0 [facility] Serum or plasma alkaline javier sphatase measurementOrdered By: Anabel Duvall on 03-16-2024 ALP [Catalytic activity/Vol] 290 U/L High 45-117 [facility] Serum or plasma calcium blanco urement (mass/volume)Ordered By: Anabel Duvall on 03-16-2024 Calcium [Mass/Vol] 9.6 mg/dL 8.5-10.1 [facility] Serum or plasma creatinine m easurement (mass/volume)Ordered By: Anabel Duvall on 03-16-2024 Creatinine [Mass/Vol] 0.93 mg/dL 0.55-1.02 [facility] Comment on above: The validity of the calculated GFR & GFRAA in patients over 70 years has not been determined. Clinical correlation is essential. Serum or plasma urea nitroge n measurement (mass/volume)Ordered By: Anabel Duvall on 03-16-2024 Urea nitrogen [Mass/Vol] 24 mg/dL High 7-18 [facility] Sodium levelOrdered By: Chino Duvall on 03-16-2024 Sodium [Moles/Vol] 139 mmol/L 136-145 [facility] Total proteinOrdered By: Shan Duvall on 03-16-2024 Protein [Mass/Vol] 8.2 g/dL 6.4-8.2 [facility] White blood cell (WBC) count Ordered By: Anabel Duvall on 03-16-2024 WBC (Bld) [#/Vol] 4.8 10*3/uL 4.4-11.0 [facility] MR Abdomen WO and W contrast [...] findings was made to ALISSON MORTON via [employer] Chat on 12/24/2023 9:32 AM EST. Report Dictated on Electronically Signed By: Jovi Davis MD Electronically Signed Date/Time: 12/24/2023 9:33 AM EST [facility] [employer] [facility] Patient Name: RICARDO VILLALPANDO : 1940 [...] findings was made to ALISSON MORTON via [employer] on 12/24/2023 9:32 AM EST. Report Dictated on Electronically Signed By: Jovi Davis MD Electronically Signed Date/Time: 12/24/2023 9:33 AM EST [facility] MR Abdomen WO and W contrast IVOrdered By: Jovi Davis on 12-24-2023 [facility] Work Phone: MR Abdomen WO and W contrast Verito 12-20-2023 Radiology Study observation (narrative) [facility] US ABDOMEN LIMITEDon US ABDOMEN LIMITED Patient [...] Signed Date/Time: 11/12/2023 7:58 AM EDT [facility] US Abdomen limitedon 024 1. [...] Report Dictated on Electronically Signed By: Jovi Dvais MD Electronically Signed Date/Time: 11/12/2023 7:58 AM EDT [facility] Patient Name: RICARDO VILLALPANDO : 1940 [...] mass or hydronephrosis. Ascites: Trace perihepatic ascites [facility] Jovi Davis MD - 11/12/2023 Patient Name: RICARDO VILLALPANDO : 1940 Exam [...] Electronically Signed Date/Time: 11/12/2023 7:58 AM EDT [facility] US Abdomen limitedOrdered By : Jovi Davis on 11-12-2023 [facility] Work Phone: US Abdomen limitedon 024 Radiology Study observation (narrative) [facility] ECG 12 leadon 08-18-2023 NSR with PAC's Low voltage in limb leads. -Nonspecific T-abnormality. ABNORMAL [facility] Bacteria identified Cx Nom ( U)Ordered By: Fallon Lopez on 05-13-2023 Interpretation and review of laboratory results Normal [facility] Urine culture (clean catch)O rdered By: Fallon Lopez on 05-13-2023 Bacteria identified Cx Nom (U) Normal urogenital nayeli present [facility] Urinalysis complete panel (U )Ordered By: Antoine Cedeno on 05-11-2023 Bacteria LM.HPF (Urine sed) [#/Area] Moderate Abnormal Negative /HPF [facility] Bilirubin Ql (U) Negative Negative mg/dL [facility] Clarity (U) Clear Clear [facility] Color (U) Light Yellow Lt. Yellow [facility] Epithelial cells.squamous LM.HPF (Urine sed) [#/Area] Negative [facility] Glucose Ql (U) Normal Normal (<70) mg/dL [facility] Hemoglobin Ql (U) Negative Negative mg/dL [facility] Hyaline casts Auto (Urine sed) [#/Area] 6-10 Abnormal Negative /LPF [facility] Interpretation and review of laboratory results Abnormal [facility] Ketones (U) [Mass/Vol] Negative Negat brook mg/dL [facility] Leukocyte esterase Test strip Ql (U) 25 Abnormal Negative Xavier/uL [facility] Nitrite Ql (U) Negative Negative [facility] pH (U) 5.0 [pH] 5.0 - 8.0 pH [facility] Protein (U) [Mass/Vol] Negative Negat brook mg/dL [facility] RBC LM.HPF (Urine sed) [#/Area] Negative [facility] Specific gravity (U) [Rel density] 1.013 1.005 - 1.030 [facility] Urobilinogen (U) [Mass/Vol] Normal Normal (0-1) mg/dL [facility] Volume, Urine 12 mL [facility] WBC LM.HPF (Urine sed) [#/Area] 0-2 [facility] US Abdomenon 10-29-2022 1. Unremarkable postcholecystectomy ultrasound of the abdomen as discussed --- unchanged since prior study 4.5 months ago (heterogeneous echogenicity of the liver without focal lesions). Report Dictated on Electronically Signed By: Rufus Miller MD Electronically Signed Date/Time: 10/29/2022 4:15 PM EDT [facility] Patient Name: RICARDO VILLALPANDO : 1940 [...] inferior vena cava are within normal limits. [facility] Rufus Miller MD - 10/29/2022 Patient [...] Electronically Signed Date/Time: 10/29/2022 4:15 PM EDT [facility] US AbdomenOrdered By: Jero Miller on 10-29-2022 [facility] Work Phone: US Abdomenon 10-28-2022 Radiology Study observation (narrative) [facility] Comprehensive metabolic 1998 panelon 09-24-2022 Albumin [Mass/Vol] 4.2 g/dL 3.5 - 5.0 g/dL [facility] ALP [Catalytic activity/Vol] 211 U/L High 38 - 126 U/L [facility] ALT [Catalytic activity/Vol] 82 U/L High 0 - 34 U/L [facility] Anion gap [Moles/Vol] 3 mmol/L 3 - 13 mmol/L [facility] AST [Catalytic activity/Vol] 103 U/L High 15 - 46 U/L [facility] Bilirubin [Mass/Vol] 0.4 mg/dL 0.2 - 1 .3 mg/dL [facility] Calcium [Mass/Vol] 9.5 mg/dL 8.4 - 10. 4 mg/dL [facility] Chloride [Moles/Vol] 106 mmol/L 98 - 10 7 mmol/L [facility] CO2 [Moles/Vol] 32 mmol/L High 22 - 30 mmol/L [facility] Creatinine [Mass/Vol] 0.85 mg/dL 0.52 - 1.04 mg/dL [facility] GFR/1.73 sq M.predicted MDRD (S/P/Bld) [Vol rate/Area] 69.8 mL/min/{1.73_m2} [facility] Comment on above: Calculation based on the Chronic Kidney Disease Epidemiology Collaboration (CKD-EPI) equation refit without adjustment for race Glucose [Mass/Vol] 108 mg/dL High 70 - 100 mg/dL [facility] Potassium [Moles/Vol] 4.2 mmol/L 3.5 - 5.1 mmol/L [facility] Protein [Mass/Vol] 8.5 g/dL High 6.3 - 8.2 g/dL [facility] Sodium [Moles/Vol] 142 mmol/L 135 - 145 mmol/L [facility] Urea nitrogen [Mass/Vol] 18 mg/dL High 7 - 17 mg/dL [facility] Lipid 1996 panelon Cholesterol [Mass/Vol] 143 mg/dL NINF - 200 mg/dL [facility] Cholesterol in HDL [Mass/Vol] 61 mg/dL High 40 - 60 mg/dL [facility] Cholesterol in LDL [Mass/Vol] 73 mg/dL 0 - <100 [facility] Cholesterol.total/Chol esterol in HDL [Mass ratio] 2 {ratio} [facility] Comment on above: Ref Range: < 3 Low Risk for CHD 3-6 Mod Risk for CHD > 6 High Risk for CHD Triglyceride [Mass/Vol] 45 mg/dL NINF - 150 mg/dL [facility] No Panel Informationon 09-24 Interpretation and review of laboratory results Abnormal [facility] Basic metabolic 1997 panelon 09-14-2022 Anion gap [Moles/Vol] 8 mmol/L 3 - 13 mmol/L [facility] Calcium [Mass/Vol] 9.2 mg/dL 8.4 - 10. 4 mg/dL [facility] Chloride [Moles/Vol] 102 mmol/L 98 - 10 7 mmol/L [facility] CO2 [Moles/Vol] 31 mmol/L High 22 - 30 mmol/L [facility] Creatinine [Mass/Vol] 0.92 mg/dL 0.52 - 1.04 mg/dL [facility] GFR/1.73 sq M.predicted MDRD (S/P/Bld) [Vol rate/Area] 63.5 mL/min/{1.73_m2} - PIN[facility] Comment on above: Calculation based on the Chronic Kidney Disease Epidemiology Collaboration (CKD-EPI) equation refit without adjustment for race Glucose [Mass/Vol] 139 mg/dL High 70 - 100 mg/dL [facility] Interpretation and review of laboratory results Abnormal [facility] Potassium [Moles/Vol] 4.1 mmol/L 3.5 - 5.1 mmol/L [facility] Sodium [Moles/Vol] 140 mmol/L 135 - 145 mmol/L [facility] Urea nitrogen [Mass/Vol] 23 mg/dL High 7 - 17 mg/dL [facility] No Panel Informationon 08-25 [facility] Absolute lymphocyte countOrd ered By: Anabel Duvall on 07-09-2022 Lymphocytes Auto (Unsp spec) [#/Vol] 1.56 10*3/uL 0.83-4.51 [facility] Basophil percentageOrdered B y: Anabel Duvall on 07-09-2022 Basophils/100 WBC (Bld) 1.2 % 0-1 [facility] Chloride [Moles/Vol] 111 mmol/L 98-107 [facility] Eosinophils/100 WBC (Bld) 3.2 % 0-5 [facility] Glucose [Mass/Vol] 115 mg/dL 74-106 [facility] Comment on above: Fasting Glucose resu lt from 100 to 125 mg/dL suggests IMPAIRED HOMEOSTASIS per A.D.A. criteria. Neutrophils (Bld) [#/Vol] 2.8 10*3/uL 2.0-7.7 [facility] Neutrophils/100 WBC (Bld) 56.0 % 47-70 [facility] Potassium [Moles/Vol] 4.3 mmol/L 3.5-5.1 [facility] Sodium [Moles/Vol] 144 mmol/L 136-145 [facility] WBC (Bld) [#/Vol] 5.1 10*3/uL 4.4-11.0 [facility] Blood erythrocytes count (nu mber/volume)Ordered By: Anabel Duvlal on 07-09-2022 RBC (Bld) [#/Vol] 3.60 10*6/uL 4.2-5.4 [facility] Blood hemoglobin measurement (mass/volume)Ordered By: Anabel Duvall on 07-09-2022 Hemoglobin (Bld) [Mass/Vol] 10.0 g/dL 12.0-15.0 [facility] Blood lymphocytes/100 leukoc ytesOrdered By: Anabel Duvall on 07-09-2022 Lymphocytes/100 WBC (Bld) 30.9 % 19-41 [facility] Blood monocytes/100 leukocyt esOrdered By: nav Duvall on 07-09-2022 Monocytes/100 WBC (Bld) 8.5 % 0-10 [facility] Blood platelet mean volumeOr dered By: [facility] on 07-09-2022 Platelet mean volume (Bld) [Entitic vol] 12.2 fL 6.2-12.0 [facility] Determination of erythrocyte mean corpuscular volume (MCV)Ordered By: nav Duvall on 07-09-2022 MCV (RBC) [Entitic vol] 91.1 fL 81-99 [facility] Hematocrit Auto (Bld) [Volum e fraction]Ordered By: [facility] on 07-09-2022 Hematocrit (Bld) [Volume fraction] 32.8 % 37-47 [facility] Laboratory - Chemistry and C hemistry - challengeOrdered By: nav Duvall on 07-09-2022 CO2 [Moles/Vol] 31.0 mmol/L 21.0-32.0 [facility] Urea nitrogen/Creatinine [Mass ratio] 35.1 mg/mg 10-20 [facility] Laboratory - Hematology and Cell countsOrdered By: nav Duvall on 07-09-2022 Erythrocyte distribution width (RBC) [Entitic vol] 62.8 fL 35.1-43.9 [facility] Erythrocyte distribution width (RBC) [Ratio] 19.1 % 11.6-14.6 [facility] Immature granulocytes/100 WBC (Bld) 0.200 % 0.0-0.9 [facility] Comment on above: IG% - Immature Granu locytes (promyelocytes, myelocytes and metamyelocytes) > 1% indicates that a LEFT SHIFT is Present. MCH (RBC) [Entitic mass] 27.8 pg 27.0-32.0 [facility] Nucleated RBC/100 WBC (Bld) [Ratio] 0 % 0-5 [facility] MCHC Auto (RBC) [Mass/Vol]Or dered By: Anabel Duvall on 07-09-2022 MCHC (RBC) [Mass/Vol] 30.5 g/dL 32-36 [facility] No Panel InformationOrdered By: Anabel uDvall on 07-09-2022 Estimated GFR (MDRD) Amer 82 mL/min >60 [facility] Comment on above: GFR Calc Estimated GFR (MDRD) Non-Af Amer 68 mL/min >60 [facility] Comment on above: Non- GFR Calc Platelets bldOrdered By: Shan Duvall on 07-09-2022 Platelets (Bld) [#/Vol] 207 10*3/uL 150-450 [facility] Serum or plasma calcium blanco urement (mass/volume)Ordered By: Anabel Duvall on 07-09-2022 Calcium [Mass/Vol] 8.7 mg/dL 8.5-10.1 [facility] Serum or plasma creatinine m easurement (mass/volume)Ordered By: Anabel Duvall on 07-09-2022 Creatinine [Mass/Vol] 0.85 mg/dL 0.55-1.02 [facility] Comment on above: The validity of the calculated GFR & GFRAA in patients over 70 years has not been determined. Clinical correlation is essential. Serum or plasma urea nitroge n measurement (mass/volume)Ordered By: Anabel Duvall on 07-09-2022 Urea nitrogen [Mass/Vol] 30 mg/dL 7-18 [facility] Thin prep Papanicolaou smear with manual screeningOrdered By: Anabel Duvall on 07-09-2022 Thin prep Papanicolaou smear with manual screening 2 5-15 [facility] Basophil percentageOrdered B y: Fallon Mcclendon on 06-26-2022 Ammonia (P) [Moles/Vol] 27.0 umol/L 11-32 [facility] Absolute lymphocyte countOrd ered By: Anabel Duvall on 06-25-2022 Lymphocytes Auto (Unsp spec) [#/Vol] 1.27 10*3/uL 0.83-4.51 [facility] Basophil percentageOrdered B y: Anabel Duvall on 06-25-2022 Basophils/100 WBC (Bld) 0.9 % 0-1 [facility] Bilirubin [Mass/Vol] 0.40 mg/dL 0.20-1.00 [facility] Comment on above: For patients on eltr ombopag therapy, use of Dimension [place] TBIL is not recommended. Chloride [Moles/Vol] 111 mmol/L 98-107 [facility] Eosinophils/100 WBC (Bld) 2.0 % 0-5 [facility] Glucose [Mass/Vol] 122 mg/dL 74-106 [facility] Comment on above: Fasting Glucose resu lt from 100 to 125 mg/dL suggests IMPAIRED HOMEOSTASIS per A.D.A. criteria. Neutrophils (Bld) [#/Vol] 4.4 10*3/uL 2.0-7.7 [facility] Neutrophils/100 WBC (Bld) 69.0 % 47-70 [facility] Potassium [Moles/Vol] 3.7 mmol/L 3.5-5.1 [facility] Protein [Mass/Vol] 6.7 g/dL 6.4-8.2 [facility] Sodium [Moles/Vol] 146 mmol/L 136-145 [facility] WBC (Bld) [#/Vol] 6.4 10*3/uL 4.4-11.0 [facility] Blood erythrocytes count (nu mber/volume)Ordered By: Lunakunjulijono Michellejuana on 06-25-2022 RBC (Bld) [#/Vol] 3.33 10*6/uL 4.2-5.4 [facility] Blood hemoglobin measurement (mass/volume)Ordered By: Anabel Chanolito on 06-25-2022 Hemoglobin (Bld) [Mass/Vol] 9.2 g/dL 12.0-15.0 [facility] Blood lymphocytes/100 leukoc ytesOrdered By: Anabel Duvall on 06-25-2022 Lymphocytes/100 WBC (Bld) 19.8 % 19-41 [facility] Blood monocytes/100 leukocyt esOrdered By: [facility] on 06-25-2022 Monocytes/100 WBC (Bld) 8.1 % 0-10 [facility] Blood platelet mean volumeOr dered By: kuntuletajono Duvall on 06-25-2022 Platelet mean volume (Bld) [Entitic vol] 11.9 fL 6.2-12.0 [facility] Determination of erythrocyte mean corpuscular volume (MCV)Ordered By: kuntuletajono Duvall on 06-25-2022 MCV (RBC) [Entitic vol] 89.2 fL 81-99 [facility] Hematocrit Auto (Bld) [Volum e fraction]Ordered By: [facility] Madd[facility] on 06-25-2022 Hematocrit (Bld) [Volume fraction] 29.7 % 37-47 [facility] Laboratory - Chemistry and C hemistry - challengeOrdered By: [facility] Chanojuana on 06-25-2022 ALP [Catalytic activity/Vol] 240 U/L 45-117 [facility] ALT [Catalytic activity/Vol] 132 U/L 13-56 [facility] CO2 [Moles/Vol] 30.0 mmol/L 21.0-32.0 [facility] Globulin (S) [Mass/Vol] 4.3 g/dL 2.2-4.2 [facility] Urea nitrogen/Creatinine [Mass ratio] 27.6 mg/mg 10-20 [facility] Laboratory - Hematology and Cell countsOrdered By: kuntuletajono Maddenjuana on 06-25-2022 Erythrocyte distribution width (RBC) [Entitic vol] 53.0 fL 35.1-43.9 [facility] Erythrocyte distribution width (RBC) [Ratio] 17.0 % 11.6-14.6 [facility] Immature granulocytes/100 WBC (Bld) 0.200 % 0.0-0.9 [facility] Comment on above: IG% - Immature Granu locytes (promyelocytes, myelocytes and metamyelocytes) > 1% indicates that a LEFT SHIFT is Present. MCH (RBC) [Entitic mass] 27.6 pg 27.0-32.0 [facility] Nucleated RBC/100 WBC (Bld) [Ratio] 0 % 0-5 [facility] MCHC Auto (RBC) [Mass/Vol]Or dered By: Anabel Duvall on 06-25-2022 MCHC (RBC) [Mass/Vol] 31.0 g/dL 32-36 [facility] No Panel InformationOrdered By: Anabel Duvall on 06-25-2022 Estimated GFR (MDRD) Amer 81 mL/min >60 [facility] Comment on above: GFR Calc Estimated GFR (MDRD) Non-Af Amer 67 mL/min >60 [facility] Comment on above: Non- GFR Calc Platelets bldOrdered By: Shan Duvall on 06-25-2022 Platelets (Bld) [#/Vol] 216 10*3/uL 150-450 [facility] Serum or plasma albumin blanco urement (mass/volume)Ordered By: Anabel Duvall on 06-25-2022 Albumin [Mass/Vol] 2.4 g/dL 3.2-5.0 [facility] Serum or plasma albumin/glob ulin mass ratioOrdered By: Anabel Duvall on 06-25-2022 Albumin/Globulin [Mass ratio] 0.6 {ratio} 0.9-2.4 [facility] Serum or plasma calcium blanco urement (mass/volume)Ordered By: Anabel Duvall on 06-25-2022 Calcium [Mass/Vol] 8.0 mg/dL 8.5-10.1 [facility] Serum or plasma creatinine m easurement (mass/volume)Ordered By: Anabel Duvall on 06-25-2022 Creatinine [Mass/Vol] 0.87 mg/dL 0.55-1.02 [facility] Comment on above: The validity of the calculated GFR & GFRAA in patients over 70 years has not been determined. Clinical correlation is essential. Serum or plasma urea nitroge n measurement (mass/volume)Ordered By: Anabel Duvall on 06-25-2022 Urea nitrogen [Mass/Vol] 24 mg/dL -18 [facility] Thin prep Papanicolaou smear with manual screeningOrdered By: Anabel Duvall on 06-25-2022 Thin prep Papanicolaou smear with manual screening 163 U/L 15-37 [facility] Thin prep Papanicolaou smear with manual screening 5 5-15 [facility] Whole blood hemoglobin A1c/t otal hemoglobin ratio (mass fraction)Ordered By: Anabel Duvall on 06-25-2022 HbA1c (Bld) [Mass fraction] 5.7 % 3.8-5.6 [facility] Comment on above: Normal < 5.7 % Predi abetic 5.7 - 6.4 % Diabetic >or= 6.5 % Please note range changes. CBC panel Auto (Bld)Ordered By: Zack Hastings on 06-16-2022 Erythrocyte distribution width (RBC) [Ratio] 14.9 % High 11.5 - 14.5 % [facility] Hematocrit (Bld) [Volume fraction] 28.0 % Low 35.0 - 47.0 % [facility] Hemoglobin (Bld) [Mass/Vol] 9.4 g/dL Low 11.7 - 16.0 g/dL [facility] Interpretation and review of laboratory results Abnormal [facility] MCH (RBC) [Entitic mass] 27.3 pg 26.0 - 34.0 pg [facility] MCHC (RBC) [Mass/Vol] 33.5 % 32.0 - 36.0 % [facility] MCV (RBC) [Entitic vol] 81.5 fL 80.0 - 98.0 fL [facility] Platelet mean volume (Bld) [Entitic vol] 8.7 fL 7.4 - 12.4 fL [facility] Platelets (Bld) [#/Vol] 166 10*3/uL 140 - 440 10*3/uL [facility] RBC (Bld) [#/Vol] 3.44 10*6/uL Low 3.8 - 5.20 10*6/uL [facility] WBC (Bld) [#/Vol] 6.3 10*3/uL 3.6 - 10.7 10*3/uL [facility] Comprehensive metabolic 1998 panelon 06-16-2022 Albumin [Mass/Vol] 2.7 g/dL Low 3.5 - 5.0 g/dL [facility] ALP [Catalytic activity/Vol] 156 U/L High 38 - 126 U/L [facility] ALT [Catalytic activity/Vol] 140 U/L High 0 - 34 U/L [facility] Anion gap [Moles/Vol] 0 mmol/L Low 3 - 13 mmol/L [facility] AST [Catalytic activity/Vol] 167 U/L High 15 - 46 U/L [facility] Bilirubin [Mass/Vol] 0.2 mg/dL 0.2 - 1 .3 mg/dL [facility] Calcium [Mass/Vol] 7.5 mg/dL Low 8.4 - 10. 4 mg/dL [facility] Chloride [Moles/Vol] 108 mmol/L High 98 - 10 7 mmol/L [facility] CO2 [Moles/Vol] 29 mmol/L 22 - 30 mmol/L [facility] Creatinine [Mass/Vol] 0.77 mg/dL 0.52 - 1.04 mg/dL [facility] GFR/1.73 sq M.predicted MDRD (S/P/Bld) [Vol rate/Area] 78.6 mL/min/{1.73_m2} - PINF [facility] Comment on above: Calculation based on the Chronic Kidney Disease Epidemiology Collaboration (CKD-EPI) equation refit without adjustment for race Glucose [Mass/Vol] 92 mg/dL 70 - 100 mg/dL [facility] Interpretation and review of laboratory results Abnormal [facility] Potassium [Moles/Vol] 3.2 mmol/L Low 3.5 - 5.1 mmol/L [facility] Protein [Mass/Vol] 6.4 g/dL 6.3 - 8.2 g/dL [facility] Sodium [Moles/Vol] 138 mmol/L 135 - 145 mmol/L [facility] Urea nitrogen [Mass/Vol] 21 mg/dL High 7 - 17 mg/dL [facility] Laboratory - Microbiology an d Antimicrobial susceptibilityOrdered By: Hazel Harrison on 06-16-2022 SARS-CoV-2 (COVID-19) Ag IA.rapid Ql (Resp) Negative Negative [facility] Comment on above: A negative result do es not rule out the possibility of SARS-CoV-2 infection. NAAT-based methods should be considered for symptomatic patients presenting greater than seven days after onset of symptoms. Method: Lateral flow immunoassay. Fact sheets for healthcare providers and patients can be found at the following sites: https://www.fda.gov/media/057711/download https://www.fda.gov/media/285899/download SARS-CoV-2 (COVID-19) Ag IA. rapid Ql (Resp)Ordered By: Hazel Harrison on 06-16-2022 Interpretation and review of laboratory results Normal [facility] CBC panel Auto (Bld)Ordered By: Kayla Lira on 06-15-2022 Erythrocyte distribution width (RBC) [Ratio] 14.3 % 11.5 - 14.5 % [facility] Hematocrit (Bld) [Volume fraction] 27.5 % Low 35.0 - 47.0 % [facility] Hemoglobin (Bld) [Mass/Vol] 9.1 g/dL Low 11.7 - 16.0 g/dL [facility] Interpretation and review of laboratory results Abnormal [facility] MCH (RBC) [Entitic mass] 27.4 pg 26.0 - 34.0 pg [facility] MCHC (RBC) [Mass/Vol] 33.3 % 32.0 - 36.0 % [facility] MCV (RBC) [Entitic vol] 82.4 fL 80.0 - 98.0 fL [facility] Platelet mean volume (Bld) [Entitic vol] 9.1 fL 7.4 - 12.4 fL [facility] Platelets (Bld) [#/Vol] 165 10*3/uL 140 - 440 10*3/uL [facility] RBC (Bld) [#/Vol] 3.34 10*6/uL Low 3.8 - 5.20 10*6/uL [facility] WBC (Bld) [#/Vol] 6.1 10*3/uL 3.6 - 10.7 10*3/uL [facility] Comprehensive metabolic 1998 panelon 06-15-2022 Albumin [Mass/Vol] 2.6 g/dL Low 3.5 - 5.0 g/dL [facility] ALP [Catalytic activity/Vol] 221 U/L High 38 - 126 U/L [facility] ALT [Catalytic activity/Vol] 136 U/L High 0 - 34 U/L [facility] Anion gap [Moles/Vol] 2 mmol/L Low 3 - 13 mmol/L [facility] AST [Catalytic activity/Vol] 189 U/L High 15 - 46 U/L [facility] Bilirubin [Mass/Vol] 0.2 mg/dL 0.2 - 1 .3 mg/dL [facility] Calcium [Mass/Vol] 7.5 mg/dL Low 8.4 - 10. 4 mg/dL [facility] Chloride [Moles/Vol] 107 mmol/L 98 - 10 7 mmol/L [facility] CO2 [Moles/Vol] 27 mmol/L 22 - 30 mmol/L [facility] Creatinine [Mass/Vol] 0.87 mg/dL 0.52 - 1.04 mg/dL [facility] GFR/1.73 sq M.predicted MDRD (S/P/Bld) [Vol rate/Area] 67.9 mL/min/{1.73_m2} - PINF [facility] Comment on above: Calculation based on the Chronic Kidney Disease Epidemiology Collaboration (CKD-EPI) equation refit without adjustment for race Glucose [Mass/Vol] 111 mg/dL High 70 - 100 mg/dL [facility] Interpretation and review of laboratory results Abnormal [facility] Potassium [Moles/Vol] 3.5 mmol/L 3.5 - 5.1 mmol/L [facility] Protein [Mass/Vol] 6.0 g/dL Low 6.3 - 8.2 g/dL [facility] Sodium [Moles/Vol] 137 mmol/L 135 - 145 mmol/L [facility] Urea nitrogen [Mass/Vol] 21 mg/dL High 7 - 17 mg/dL [facility] Ferritin [Mass/Vol]on 2022 Interpretation and review of laboratory results Normal [facility] Iron and Iron binding capaci ty panelon 06-15-2022 Interpretation and review of laboratory results Abnormal [facility] Iron [Mass/Vol] 23 ug/dL Low 37 - 170 ug/dL [facility] Iron binding capacity [Mass/Vol] 330 ug/dL 261 - 497 ug/dL [facility] Iron saturation [Mass fraction] 7 % Low 15 - 50 % [facility] Laboratory - Chemistry and C hemistry - challengeon 06-15-2022 Ferritin [Mass/Vol] 20 ng/mL 11 - 264 ng/mL [facility] No Panel InformationOrdered By: Rajat Swanson on 06-15-2022 P [place] 89 degrees [facility] Work Phone: TN Interval 177 ms [employer] Phone: QRS [place] -20 degrees [facility] Work Phone: [phone] QRSD Interval 90 ms [facility] Work Phone: [phone] QT Interval 438 ms [employer] Phone: QTC Interval 481 ms [employer] Phone: T Wave [place] 39 degrees [employer] Phone: [place] Phone: No Panel Informationon 06-15 Sinus rhythm [...] Electronically Signed On 06-15-2022 2:53:31 EDT by [employer] US Abdomen limitedon 023 Nonspecific coarsene d heterogeneous echotexture of the liver without focal lesion identified. Correlation with LFTs is recommended. Trace ascites. Report Dictated on Electronically Signed By: Seymour Bragg Electronically Signed Date/Time: 06/15/2022 8:48 AM EDT [facility] Patient Name: RICARDO VILLALPANDO : [...] 06/15/2022 Patient Name: RICARD[facility] VILLALPANDO : 1940 [id number] Exam Date/Time: 06/15/2022 06:51 Procedure: US ABDOMEN [...] Electronically Signed Date/Time: 06/15/2022 8:48 AM EDT [facility] Study observation (narrative) [facility] US Abdomen limitedOrdered By : Seymour Bragg on 06-15-2022 [facility] Work Phone: Vital signsOrdered By: Ivet Swanson on 06-15-2022 Heart rate 73 /min bpm [facility] Work Phone: CBC W Auto Differential pane l (Bld)Ordered By: Cristaine Womack on 06-14-2022 Basophils (Bld) [#/Vol] 0.0 10*3/uL 0.0 - 0.2 10*3/uL [facility] Basophils/100 WBC (Bld) 0.4 % 0.0 - 2.0 % [facility] Eosinophils (Bld) [#/Vol] 0.1 10*3/uL 0.0 - 0.5 10*3/uL [facility] Eosinophils/100 WBC (Bld) 1.8 % 1.0 - 6.0 % [facility] Erythrocyte distribution width (RBC) [Ratio] 14.4 % 11.5 - 14.5 % [facility] Hematocrit (Bld) [Volume fraction] 27.0 % Low 35.0 - 47.0 % [facility] Hemoglobin (Bld) [Mass/Vol] 8.9 g/dL Low 11.7 - 16.0 g/dL [facility] Interpretation and review of laboratory results Abnormal [facility] Lymphocytes (Bld) [#/Vol] 1.1 10*3/uL 1.0 - 4.3 10*3/uL [facility] Lymphocytes/100 WBC (Bld) 25.1 % 20.0 - 40.0 % [facility] MCH (RBC) [Entitic mass] 26.8 pg 26.0 - 34.0 pg [facility] MCHC (RBC) [Mass/Vol] 32.8 % 32.0 - 36.0 % [facility] MCV (RBC) [Entitic vol] 81.7 fL 80.0 - 98.0 fL [facility] Monocytes (Bld) [#/Vol] 0.3 10*3/uL 0.0 - 0.8 10*3/uL [facility] Monocytes/100 WBC (Bld) 6.5 % 2.0 - 10.0 % [facility] Neutrophils (Bld) [#/Vol] 3.0 10*3/uL 1.8 - 7.0 10*3/uL [facility] Neutrophils/100 WBC (Bld) 66.2 % 40.0 - 80.0 % [facility] Nucleated RBC/100 WBC (Bld) [Ratio] 0.0 % [facility] Platelet mean volume (Bld) [Entitic vol] 8.8 fL 7.4 - 12.4 fL [facility] Platelets (Bld) [#/Vol] 171 10*3/uL 140 - 440 10*3/uL [facility] RBC (Bld) [#/Vol] 3.31 10*6/uL Low 3.8 - 5.20 10*6/uL [facility] WBC (Bld) [#/Vol] 4.6 10*3/uL 3.6 - 10.7 10*3/uL [facility] Comprehensive metabolic 1998 panelon 06-14-2022 Albumin [Mass/Vol] 2.7 g/dL Low 3.5 - 5.0 g/dL [facility] ALP [Catalytic activity/Vol] 141 U/L High 38 - 126 U/L [facility] ALT [Catalytic activity/Vol] 152 U/L High 0 - 34 U/L [facility] Anion gap [Moles/Vol] 1 mmol/L Low 3 - 13 mmol/L [facility] AST [Catalytic activity/Vol] 218 U/L High 15 - 46 U/L [facility] Bilirubin [Mass/Vol] 0.3 mg/dL 0.2 - 1 .3 mg/dL [facility] Calcium [Mass/Vol] 8.1 mg/dL Low 8.4 - 10. 4 mg/dL [facility] Chloride [Moles/Vol] 107 mmol/L 98 - 10 7 mmol/L [facility] CO2 [Moles/Vol] 30 mmol/L 22 - 30 mmol/L [facility] Creatinine [Mass/Vol] 0.78 mg/dL 0.52 - 1.04 mg/dL [facility] GFR/1.73 sq M.predicted MDRD (S/P/Bld) [Vol rate/Area] 77.4 mL/min/{1.73_m2} - PINF [facility] Comment on above: Calculation based on the Chronic Kidney Disease Epidemiology Collaboration (CKD-EPI) equation refit without adjustment for race Glucose [Mass/Vol] 91 mg/dL 70 - 100 mg/dL [facility] Interpretation and review of laboratory results Abnormal [facility] Potassium [Moles/Vol] 3.6 mmol/L 3.5 - 5.1 mmol/L [facility] Protein [Mass/Vol] 6.4 g/dL 6.3 - 8.2 g/dL [facility] Sodium [Moles/Vol] 138 mmol/L 135 - 145 mmol/L [facility] Urea nitrogen [Mass/Vol] 22 mg/dL High 7 - 17 mg/dL [facility] Laboratory - Chemistry and C hemistry - challengeon 06-14-2022 Lactate [Moles/Vol] 0.7 mmol/L 0.7 - 2. 0 mmol/L [facility] No Panel Informationon 06-14 Interpretation and review of laboratory results Normal [facility] Acetaminophen [Mass/Vol]on 0 06-13-2022 Interpretation and review of laboratory results Abnormal [facility] CBC W Auto Differential pane l (Bld)Ordered By: Adela Giron on 06-13-2022 Basophils (Bld) [#/Vol] 0.0 10*3/uL 0.0 - 0.2 10*3/uL [facility] Basophils/100 WBC (Bld) 0.5 % 0.0 - 2.0 % [facility] Eosinophils (Bld) [#/Vol] 0.0 10*3/uL 0.0 - 0.5 10*3/uL [facility] Eosinophils/100 WBC (Bld) 0.5 % Low 1.0 - 6.0 % [facility] Erythrocyte distribution width (RBC) [Ratio] 14.6 % High 11.5 - 14.5 % [facility] Hematocrit (Bld) [Volume fraction] 28.7 % Low 35.0 - 47.0 % [facility] Hemoglobin (Bld) [Mass/Vol] 9.5 g/dL Low 11.7 - 16.0 g/dL [facility] Interpretation and review of laboratory results Abnormal [facility] Lymphocytes (Bld) [#/Vol] 1.3 10*3/uL 1.0 - 4.3 10*3/uL [facility] Lymphocytes/100 WBC (Bld) 19.0 % Low 20.0 - 40.0 % [facility] MCH (RBC) [Entitic mass] 26.9 pg 26.0 - 34.0 pg [facility] MCHC (RBC) [Mass/Vol] 33.0 % 32.0 - 36.0 % [facility] MCV (RBC) [Entitic vol] 81.7 fL 80.0 - 98.0 fL [facility] Monocytes (Bld) [#/Vol] 0.3 10*3/uL 0.0 - 0.8 10*3/uL [facility] Monocytes/100 WBC (Bld) 5.0 % 2.0 - 10.0 % [facility] Neutrophils (Bld) [#/Vol] 5.2 10*3/uL 1.8 - 7.0 10*3/uL [facility] Neutrophils/100 WBC (Bld) 75.0 % 40.0 - 80.0 % [facility] Nucleated RBC/100 WBC (Bld) [Ratio] 0.0 % [facility] Platelet mean volume (Bld) [Entitic vol] 9.2 fL 7.4 - 12.4 fL [facility] Platelets (Bld) [#/Vol] 188 10*3/uL 140 - 440 10*3/uL [facility] RBC (Bld) [#/Vol] 3.51 10*6/uL Low 3.8 - 5.20 10*6/uL [facility] WBC (Bld) [#/Vol] 6.9 10*3/uL 3.6 - 10.7 10*3/uL [facility] Head WO contraston 2022 1. No acute intracranial findings. 2. Probable chronic ischemic and atrophic changes. Report Dictated on Electronically Signed By: Niko Talley Electronically Signed Date/Time: 06/13/2022 3:16 PM EDT [facility] Patient Name: RICARDO VILLALPANDO : 1940 [id number] Exam Date/Time: 06/13/2022 15:08 Procedure: CT HEAD [...] diffuse volume loss. Osseous calvarium grossly intact. Sisasa Niko Talley MD - 06/13/2022 Patient Name: RICARDO VILLALPANDO [facility]B: 1940 [id number] Exam Date/Time: 06/13/2022 15:08 Procedure: CT HEAD [...] Electronically Signed Date/Time: 06/13/2022 3:16 PM EDT [facility] Radiology Study observation (narrative) [facility] CT Head WO contrastOrdered B y: Niko Talley on 06-13-2022 [facility] Work Phone: Comprehensive metabolic 1998 panelon 06-13-2022 Albumin [Mass/Vol] 3.4 g/dL Low 3.5 - 5.0 g/dL [facility] ALP [Catalytic activity/Vol] 176 U/L High 38 - 126 U/L [facility] ALT [Catalytic activity/Vol] 185 U/L High 0 - 34 U/L [facility] Anion gap [Moles/Vol] 3 mmol/L 3 - 13 mmol/L [facility] AST [Catalytic activity/Vol] 311 U/L High 15 - 46 U/L [facility] Bilirubin [Mass/Vol] 0.5 mg/dL 0.2 - 1 .3 mg/dL [facility] Calcium [Mass/Vol] 8.7 mg/dL 8.4 - 10. 4 mg/dL [facility] Chloride [Moles/Vol] 104 mmol/L 98 - 10 7 mmol/L [facility] CO2 [Moles/Vol] 27 mmol/L 22 - 30 mmol/L [facility] Creatinine [Mass/Vol] 0.80 mg/dL 0.52 - 1.04 mg/dL [facility] GFR/1.73 sq M.predicted MDRD (S/P/Bld) [Vol rate/Area] 75.1 mL/min/{1.73_m2} - PINF [facility] Comment on above: Calculation based on the Chronic Kidney Disease Epidemiology Collaboration (CKD-EPI) equation refit without adjustment for race Glucose [Mass/Vol] 114 mg/dL High 70 - 100 mg/dL [facility] Interpretation and review of laboratory results Abnormal [facility] Potassium [Moles/Vol] 3.7 mmol/L 3.5 - 5.1 mmol/L [facility] Protein [Mass/Vol] 7.5 g/dL 6.3 - 8.2 g/dL [facility] Sodium [Moles/Vol] 134 mmol/L Low 135 - 145 mmol/L [facility] Urea nitrogen [Mass/Vol] 26 mg/dL High 7 - 17 mg/dL [facility] Fibrin D-dimer FEU (PPP) [Ma ss/Vol]on 06-13-2022 Interpretation and review of laboratory results Normal [facility] D-Dimer va lues of <0.50 mg/L FEU can be used in combination with a pre-test probability model (e.g. Well's) to exclude pulmonary embolism (PE) disease, as well as an aid in the diagnosis of deep vein thrombosis (DVT). [facility] Hepatitis 1996 panel (S)on 0 06-13-2022 HAV IgM IA Ql Not detected Not Detected [facility] HBV core IgM IA Ql Not detected Not Detected [facility] HBV surface Ag IA Ql Not detected Not Detected [facility] HCV Ab IA Ql Not detected Not Detected [facility] Comment on above: Patients with DETECT ED Hepatitis C Ab results should have a new specimen submitted for supplemental testing with a Hepatitis C Quantitative RNA assay (viral load), if clinically indicated. Interpretation and review of laboratory results Normal [facility] [facility] Laboratory - Chemistry and C hemistry - challengeon 06-13-2022 TSH Qn 3.546 m[IU]/L [facility] Glucose [Mass/Vol] 114 mg/dL [facility] Troponin I.cardiac [Mass/Vol] ng/mL 0.000 - 0.034 ng/mL [facility] Laboratory - Chemistry and C hemistry - challengeOrdered By: Aylin Del Rosario on 06-13-2022 Lactate [Moles/Vol] 2.2 mmol/L Critically high 0.7 - 2.0 mmol/L [facility] Laboratory - Coagulationon 0 06-13-2022 Fibrin D-dimer FEU (PPP) [Mass/Vol] mg/L NINF - 0.50 mg/L [facility] PT Coag (Bld) [Time] 11.6 s 9.0 - 12.0 s [facility] Laboratory - Drug toxicology on 06-13-2022 Acetaminophen [Mass/Vol] ug/mL Low 10.0 - 30.0 ug/mL [facility] Natriuretic peptide B [Mass/ Vol]on 06-13-2022 Interpretation and review of laboratory results Abnormal [facility] Natriuretic peptide B (Bld) [Mass/Vol] 575 pg/mL High <20 - 300 [facility] No Panel Informationon 06-13 Interpretation and review of laboratory results Normal [facility] <50% stenosis in the right internal carotid [...] Artery: Normal. Elevated velocities in subclavian artery [employer] Details A choudhary scale, color Doppler imaging and spectral Doppler analysis ultrasound was performed. During the study longitudinal and transverse views were obtained. Pulsed wave doppler was performed. The exam was performed with the patient in the supine position. Overall the study quality was good. CV CPACS No Panel InformationOrdered By: Aylin Del Rosario on 06-13-2022 Interpretation and review of laboratory results Abnormal [facility] No Panel InformationOrdered By: Any Palomino on 06-13-2022 Left CCA dist EDV 8.1 cm/s [employer] Work Phone: Left CCA dist PSV 75.4 cm/s [employer] Work Phone: Left CCA mid EDV 9.30 cm/s [employer] Phone: Left CCA mid PSV 92.60 cm/s [employer] Work Phone: Left CCA prox EDV 17.9 cm/s [employer] Phone: Left CCA prox PSV 119.5 cm/s [employer] Phone: Left ECA EDV 0.00 cm/s [employer] Work Phone: Left ECA PSV 74.6 cm/s [employer] Work Phone: Left ICA dist EDV 17.0 cm/s [employer] Phone: Left ICA dist PSV 74.6 cm/s [employer] Work Phone: Left ICA mid EDV 13.3 cm/s [employer] Work Phone: Left ICA mid PSV 77.0 cm/s [employer] Phone: Left ICA prox EDV 13.3 cm/s [employer] Phone: Left ICA prox PSV 63.6 cm/s [employer] Phone: Left ICA/CCA PSV 0.83 [employer] Phone: Left subclavian dist EDV 3.1 cm/s [employer] Work Phone: Left subclavian dist PSV 160.5 [...] Phone: Right ICA prox PSV 62.5 cm/s [employer] Work Phone: Right ICA/CCA PSV 0.93 [employer] Work Phone: Right subclavian mid EDV 1.3 cm/s [employer] Work Phone: Right subclavian mid PSV 122.2 cm/s [employer] Work Phone: Right vertebral EDV 9.50 cm/s [employer] Work Phone: Right vertebral PSV 66.6 cm/s [employer] Work Phone: PT Coag (Bld) [Time]on 06-13 INR Coag (PPP) [Relative time] 1.1 {INR} 0.9 - 1.1 [facility] Comment on above: Recommended Anticoag ulant Therapy: [...] Interpretation and review of laboratory results Normal [facility] TSH Qnon 06-13-2022 Interpretation and review of laboratory results Normal [facility] Troponin I.cardiac [Mass/Vol ]on 06-13-2022 Interpretation and review of laboratory results Normal [facility] Patients with high l evels of Biotin oral intake (ie >5 mg/day) may have falsely decreased Troponin levels. [facility] XR Pelvis 1 or 2 Viewson No fracture or dislocation. Report Dictated on Electronically Signed By: Jovi Davis Electronically Signed Date/Time: 06/13/2022 3:33 PM EDT [facility] Patient Name: RICARDO VILLALPANDO : [...] identified. There is no soft tissue abnormality. [facility] Jovi Davis MD - 06/13/2022 Patient [...] dislocation. Report Dictated on Electronically Signed By: Joiv Davis Electronically Signed Date/Time: 06/13/2022 3:33 PM EDT [facility] Radiology Study observation (narrative) [facility] XR Pelvis 1 or 2 ViewsOrdere d By: Jovi Davis on 06-13-2022 [facility] Work Phone: Absolute lymphocyte countOrd ered By: ED PROVIDER on 06-01-2022 Lymphocytes Auto (Unsp spec) [#/Vol] 1.57 10*3/uL 0.83-4.51 [facility] Basophil percentageOrdered B y: Dr. Younger on 06-01-2022 Basophil percentage 0-5 SEEN /hpf 0-5 Wo [facility] Bilirubin [Mass/Vol] 0.30 mg/dL 0.20-1.00 [facility] Comment on above: For patients on eltr ombopag therapy, use of Dimension [place] TBIL is not recommended. Protein [Mass/Vol] 7.8 g/dL 6.4-8.2 [facility] Basophil percentageOrdered B y: ED PROVIDER on 06-01-2022 Basophils/100 WBC (Bld) 0.7 % 0-1 [facility] Chloride [Moles/Vol] 105 mmol/L 98-107 [facility] Eosinophils/100 WBC (Bld) 1.1 % 0-5 [facility] Glucose [Mass/Vol] 124 mg/dL 74-106 [facility] Comment on above: Fasting Glucose resu lt from 100 to 125 mg/dL suggests IMPAIRED HOMEOSTASIS per A.D.A. criteria. Neutrophils (Bld) [#/Vol] 4.9 10*3/uL 2.0-7.7 [facility] Neutrophils/100 WBC (Bld) 70.1 % 47-70 [facility] Potassium [Moles/Vol] 3.5 mmol/L 3.5-5.1 [facility] Sodium [Moles/Vol] 137 mmol/L 136-145 [facility] WBC (Bld) [#/Vol] 7.0 10*3/uL 4.4-11.0 [facility] Bilirubin Test strip Ql (U)O rdered By: Dr. Younger on 06-01-2022 Bilirubin Ql (U) Negative Negative [facility] Blood erythrocytes count (nu mber/volume)Ordered By: ED PROVIDER on 06-01-2022 RBC (Bld) [#/Vol] 3.71 10*6/uL 4.2-5.4 [facility] Blood hemoglobin measurement (mass/volume)Ordered By: ED PROVIDER on 06-01-2022 Hemoglobin (Bld) [Mass/Vol] 10.0 g/dL 12.0-15.0 [facility] Blood lymphocytes/100 leukoc ytesOrdered By: ED PROVIDER on 06-01-2022 Lymphocytes/100 WBC (Bld) 22.3 % 19-41 [facility] Blood monocytes/100 leukocyt esOrdered By: ED PROVIDER on 06-01-2022 Monocytes/100 WBC (Bld) 5.5 % 0-10 [facility] Blood platelet mean volumeOr dered By: ED PROVIDER on 06-01-2022 Platelet mean volume (Bld) [Entitic vol] 10.5 fL 6.2-12.0 [facility] Determination of erythrocyte mean corpuscular volume (MCV)Ordered By: ED PROVIDER on 06-01-2022 MCV (RBC) [Entitic vol] 85.4 fL 81-99 [facility] Direct bilirubinOrdered By: Dr. Younger on 06-01-2022 Bilirubin.direct [Mass/Vol] 0.25 mg/dL 0.00-0.30 [facility] Hematocrit Auto (Bld) [Volum e fraction]Ordered By: ED PROVIDER on 06-01-2022 Hematocrit (Bld) [Volume fraction] 31.7 % 37-47 [facility] Influenza virus A and B and SARS-CoV-2 (COVID-19) Ag panel - Upper respiratory specimOrdered By: Dr. Younger on 06-01-2022 SARS-CoV-2 (COVID-19) RNA BALDO+probe Ql (Resp) [facility] Ketones Test strip Ql (U)Ord ered By: Dr. Younger on 06-01-2022 Ketones Ql (U) Negative Negative [facility] Laboratory - Chemistry and C hemistry - challengeOrdered By: Dr. Younger on 06-01-2022 ALP [Catalytic activity/Vol] 207 U/L 45-117 [facility] ALT [Catalytic activity/Vol] 69 U/L 13-56 [facility] Globulin (S) [Mass/Vol] 5.5 g/dL 2.2-4.2 [facility] Laboratory - Chemistry and C hemistry - challengeOrdered By: ED PROVIDER on 06-01-2022 CO2 [Moles/Vol] 31.0 mmol/L 21.0-32.0 [facility] Urea nitrogen/Creatinine [Mass ratio] 33.1 mg/mg 10-20 [facility] Laboratory - Hematology and Cell countsOrdered By: ED PROVIDER on 06-01-2022 Erythrocyte distribution width (RBC) [Entitic vol] 42.8 fL 35.1-43.9 [facility] Erythrocyte distribution width (RBC) [Ratio] 13.8 % 11.6-14.6 [facility] Immature granulocytes/100 WBC (Bld) 0.300 % 0.0-0.9 [facility] Comment on above: IG% - Immature Granu locytes (promyelocytes, myelocytes and metamyelocytes) > 1% indicates that a LEFT SHIFT is Present. MCH (RBC) [Entitic mass] 27.0 pg 27.0-32.0 [facility] Nucleated RBC/100 WBC (Bld) [Ratio] 0 % 0-5 [facility] MCHC Auto (RBC) [Mass/Vol]Or dered By: ED PROVIDER on 06-01-2022 MCHC (RBC) [Mass/Vol] 31.5 g/dL 32-36 [facility] Mucus LM Ql (Urine sed)Order ed By: Dr. Younger on 06-01-2022 Mucus Ql (Urine sed) 0 SEEN /hpf [facility] Nitrite Test strip Ql (U)Ord ered By: Dr. Younger on 06-01-2022 Nitrite Ql (U) Negative Negative [facility] No Panel InformationOrdered By: ED PROVIDER on 06-01-2022 Estimated GFR (MDRD) Amer 77 mL/min >60 [facility] Comment on above: GFR Calc Estimated GFR (MDRD) Non-Af Amer 64 mL/min >60 [facility] Comment on above: Non- GFR Calc Platelets bldOrdered By: ED PROVIDER on 06-01-2022 Platelets (Bld) [#/Vol] 248 10*3/uL 150-450 [facility] Protein Test strip Ql (U)Ord ered By: Dr. Younger on 06-01-2022 Protein Ql (U) 30 mg/dl Negative [facility] Serum or plasma albumin blanco urement (mass/volume)Ordered By: Dr. Younger on 06-01-2022 Albumin [Mass/Vol] 2.3 g/dL 3.2-5.0 [facility] Serum or plasma calcium blanco urement (mass/volume)Ordered By: ED PROVIDER on 06-01-2022 Calcium [Mass/Vol] 8.6 mg/dL 8.5-10.1 [facility] Serum or plasma creatinine m easurement (mass/volume)Ordered By: ED PROVIDER on 06-01-2022 Creatinine [Mass/Vol] 0.91 mg/dL 0.55-1.02 [facility] Comment on above: The validity of the calculated GFR & GFRAA in patients over 70 years has not been determined. Clinical correlation is essential. Serum or plasma urea nitroge n measurement (mass/volume)Ordered By: ED PROVIDER on 06-01-2022 Urea nitrogen [Mass/Vol] 30 mg/dL 7-18 [facility] Squamous epithelial cells de tection in urine sediment by light microscopyOrdered By: Dr. Younger on 06-01-2022 Epithelial cells.squamous LM Ql (Urine sed) 0-5 SEEN /hpf 5-10 [facility] Thin prep Papanicolaou smear with manual screeningOrdered By: Dr. Younger on 06-01-2022 Thin prep Papanicolaou smear with manual screening 75 U/L 15-37 [facility] Thin prep Papanicolaou smear with manual screeningOrdered By: ED PROVIDER on 06-01-2022 Thin prep Papanicolaou smear with manual screening 1 5-15 [facility] Urine blood detectionOrdered By: Dr. Younger on 06-01-2022 RBC Ql (U) Negative Negative [facility] RBC Ql (U) 0 SEEN /hpf 0-5 [facility] Urine clarityOrdered By: Dr. Younger on 06-01-2022 Clarity (U) Sl. Cloudy Clear [facility] Urine color determinationOrd ered By: Dr. Younger on 06-01-2022 Color (U) Yellow Yellow [facility] Urine glucose detectionOrder ed By: Dr. Younger on 06-01-2022 Glucose Ql (U) Normal mg/dl Normal [facility] Urine leukocyte esterase det ection by dipstickOrdered By: Dr. Younger on 06-01-2022 Leukocyte esterase Test strip Ql (U) 25 /ul Negative [facility] Urine pHOrdered By: Dr. Jacqueline delgado on 06-01-2022 pH (U) 5.0 [pH] 5.0 - 8.0 [facility] Urine sediment bacteria coun t by microscopy (number/high power field)Ordered By: Dr. Younger on 06-01-2022 Bacteria LM.HPF (Urine sed) [#/Area] 0 /[HPF] None Seen [facility] Urine specific gravity measu rementOrdered By: Dr. Younger on 06-01-2022 Specific gravity (U) [Rel density] 1.015 1.002-1.030 [facility] Urobilinogen Auto test strip Ql (U)Ordered By: Dr. Younger on 06-01-2022 Urobilinogen Ql (U) 1 mg/dl Normal [facility] Absolute lymphocyte countOrd ered By: Dr. Pack on 05-13-2022 Lymphocytes Auto (Unsp spec) [#/Vol] 1.03 10*3/uL 0.83-4.51 [facility] Basophil percentageOrdered B y: Dr. Pack on 05-13-2022 Basophils/100 WBC (Bld) 0.8 % 0-1 [facility] Chloride [Moles/Vol] 106 mmol/L 98-107 [facility] Eosinophils/100 WBC (Bld) 4.1 % 0-5 [facility] Glucose [Mass/Vol] 102 mg/dL 74-106 [facility] Comment on above: Fasting Glucose resu lt from 100 to 125 mg/dL suggests IMPAIRED HOMEOSTASIS per A.D.A. criteria. Neutrophils (Bld) [#/Vol] 3.0 10*3/uL 2.0-7.7 [facility] Neutrophils/100 WBC (Bld) 61.7 % 47-70 [facility] Potassium [Moles/Vol] 3.9 mmol/L 3.5-5.1 [facility] Sodium [Moles/Vol] 139 mmol/L 136-145 [facility] WBC (Bld) [#/Vol] 4.8 10*3/uL 4.4-11.0 [facility] Blood erythrocytes count (nu mber/volume)Ordered By: Dr. Pack on 05-13-2022 RBC (Bld) [#/Vol] 3.19 10*6/uL 4.2-5.4 [facility] Blood hemoglobin measurement (mass/volume)Ordered By: Dr. Pack on 05-13-2022 Hemoglobin (Bld) [Mass/Vol] 8.7 g/dL 12.0-15.0 [facility] Blood lymphocytes/100 leukoc ytesOrdered By: Dr. Pack on 05-13-2022 Lymphocytes/100 WBC (Bld) 21.4 % 19-41 [facility] Blood monocytes/100 leukocyt esOrdered By: Dr. Pack on 05-13-2022 Monocytes/100 WBC (Bld) 11.8 % 0-10 [facility] Blood platelet mean volumeOr dered By: Dr. Pack on 05-13-2022 Platelet mean volume (Bld) [Entitic vol] 11.9 fL 6.2-12.0 [facility] Determination of erythrocyte mean corpuscular volume (MCV)Ordered By: Dr. Pack on 05-13-2022 MCV (RBC) [Entitic vol] 89.0 fL 81-99 [facility] Glucose Glucometer (BldC) [M ass/Vol]Ordered By: Dr. Pack on 05-13-2022 Glucose [Mass/Vol] 131 mg/dL 74-106 [facility] Comment on above: MANAGEMENT OF PATIEN T CARE PER NURSING PROTOCOL Hematocrit Auto (Bld) [Volum e fraction]Ordered By: Dr. Pack on 05-13-2022 Hematocrit (Bld) [Volume fraction] 28.4 % 37-47 [facility] INR in Blood by Coagulation assayOrdered By: Dr. Gill on 05-13-2022 INR Coag (Bld) [Relative time] 1.2 {INR} [facility] Iron measurement (mass/mass) Ordered By: Dr. Pack on 05-13-2022 Iron (Unsp spec) [Mass/Mass] 39 ug/dL 50-170 [facility] Laboratory - Chemistry and C hemistry - challengeOrdered By: Dr. Pack on 05-13-2022 CO2 [Moles/Vol] 28.0 mmol/L 21.0-32.0 [facility] Urea nitrogen/Creatinine [Mass ratio] 23.3 mg/mg 10-20 [facility] Laboratory - CoagulationOrde red By: Dr. Gill on 05-13-2022 aPTT Coag (Bld) [Time] 34.4 s 24.1-36.2 [facility] PT Coag (PPP) [Time] 14.7 s 11.7-14.9 [facility] Laboratory - Hematology and Cell countsOrdered By: Dr. Pack on 05-13-2022 Erythrocyte distribution width (RBC) [Entitic vol] 42.1 fL 35.1-43.9 [facility] Erythrocyte distribution width (RBC) [Ratio] 13.0 % 11.6-14.6 [facility] Immature granulocytes/100 WBC (Bld) 0.200 % 0.0-0.9 [facility] Comment on above: IG% - Immature Granu locytes (promyelocytes, myelocytes and metamyelocytes) > 1% indicates that a LEFT SHIFT is Present. MCH (RBC) [Entitic mass] 27.3 pg 27.0-32.0 [facility] Nucleated RBC/100 WBC (Bld) [Ratio] 0 % 0-5 [facility] MCHC Auto (RBC) [Mass/Vol]Or dered By: Dr. Pack on 05-13-2022 MCHC (RBC) [Mass/Vol] 30.6 g/dL 32-36 [facility] No Panel InformationOrdered By: Dr. Pack on 05-13-2022 Estimated Creatinine Clearance Calc 37.10 ml/min [facility] Estimated GFR (MDRD) Amer 82 mL/min >60 [facility] Comment on above: GFR Calc Estimated GFR (MDRD) Non-Af Amer 68 mL/min >60 [facility] Comment on above: Non- GFR Calc Total Iron Binding Capacity 406 ug/dL 250-450 [facility] Platelets bldOrdered By: Dr. Pack on 05-13-2022 Platelets (Bld) [#/Vol] 178 10*3/uL 150-450 [facility] Serum or plasma calcium blanco urement (mass/volume)Ordered By: Dr. Pack on 05-13-2022 Calcium [Mass/Vol] 9.1 mg/dL 8.5-10.1 [facility] Serum or plasma creatinine m easurement (mass/volume)Ordered By: Dr. Pack on 05-13-2022 Creatinine [Mass/Vol] 0.86 mg/dL 0.55-1.02 [facility] Comment on above: The validity of the calculated GFR & GFRAA in patients over 70 years has not been determined. Clinical correlation is essential. Serum or plasma ferritin ellen surement (mass/volume)Ordered By: Dr. Pack on 05-13-2022 Ferritin [Mass/Vol] 17 ng/mL 8-252 [facility] Serum or plasma iron saturat ion measurement (mass fraction)Ordered By: Dr. Pack on 05-13-2022 Iron saturation [Mass fraction] 9.6 % 15.0-55.0 [facility] Serum or plasma urea nitroge n measurement (mass/volume)Ordered By: Dr. Pack on 05-13-2022 Urea nitrogen [Mass/Vol] 20 mg/dL 7-18 [facility] Thin prep Papanicolaou smear with manual screeningOrdered By: Dr. Pack on 05-13-2022 Thin prep Papanicolaou smear with manual screening 5 5-15 [facility] Whole blood hemoglobin A1c/t otal hemoglobin ratio (mass fraction)Ordered By: Dr. Gill on 05-13-2022 HbA1c (Bld) [Mass fraction] 5.7 %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 [address] Lymphocytes/100 WBC (Bld) 9.1 % Low 20.0-40.0 [facility] Comment on above: Performed By: #### H EMDF, BMP3, LFT3, LIPA4, TROPN #### [address] MCH (RBC) [Entitic mass] 32.7 pg Normal 26.0-34.0 [facility] Comment on above: Performed By: #### H EMDF, BMP3, LFT3, LIPA4, TROPN #### [facility] [address] [place], [place] MCHC (RBC) [Mass/Vol] 33.9 % Normal 32.0-36.0 [facility] Comment on above: Performed By: #### H EMDF, BMP3, LFT3, LIPA4, TROPN #### [address] [address] [place], [place] MCV (RBC) [Entitic vol] 96.5 fL Normal 79.0-98.0 [facility] Comment on above: Performed By: #### H EMDF, BMP3, LFT3, LIPA4, TROPN #### [address] Monocytes (Bld) [#/Vol] 1.3 10*3/uL High 0.0-0.8 [facility] Comment on above: Performed By: #### H EMDF, BMP3, LFT3, LIPA4, TROPN #### [address] Monocytes/100 WBC (Bld) 6.6 % Normal 2.0-10.0 [facility] Comment on above: Performed By: #### H EMDF, BMP3, LFT3, LIPA4, TROPN #### [address] Platelet mean volume (Bld) [Entitic vol] 10.3 fL Normal 7.4-10.4 [facility] Comment on above: Performed By: #### H EMDF, BMP3, LFT3, LIPA4, TROPN #### [address] Platelets (Bld) [#/Vol] 244 10*3/uL Normal 140-440 [facility] Comment on above: Performed By: #### H EMDF, BMP3, LFT3, LIPA4, TROPN #### [address] RBC (Bld) [#/Vol] 3.56 10*6/uL Low 3.80-5.20 [facility] Comment on above: Performed By: #### H EMDF, BMP3, LFT3, LIPA4, TROPN #### [address] [address] [address] [place], [place] WBC (Bld) [#/Vol] 19.0 10*3/uL High 3.6-10.7 [facility] Comment on above: Performed By: #### H EMDF, BMP3, LFT3, LIPA4, TROPN #### [address] [address] [address] [place], [place] Hepatic Functionon 0 ALP [Catalytic activity/Vol] 75 U/L Normal 38-126 [facility] Comment on above: Performed By: #### H EMDF, BMP3, LFT3, LIPA4, TROPN #### [address] [address] [address] [place], [place] ALT [Catalytic activity/Vol] 60 U/L Normal 13-69 [facility] Comment on above: Performed By: #### H EMDF, BMP3, LFT3, LIPA4, TROPN #### [address] [address] [address] [place], [place] AST [Catalytic activity/Vol] 62 U/L High 15-46 [facility] Comment on above: Performed By: #### H EMDF, BMP3, LFT3, LIPA4, TROPN #### [address] [address] [address] [place], [place] Bilirubin [Mass/Vol] 0.5 mg/dL Normal 0.2-1.3 [facility] Comment on above: Performed By: #### H EMDF, BMP3, LFT3, LIPA4, TROPN #### [address] [address] [address] [place], [place] Bilirubin.direct [Mass/Vol] 0.0 mg/dL Normal 0.0-0.3 [facility] Comment on above: Performed By: #### H EMDF, BMP3, LFT3, LIPA4, TROPN #### [address] [address] [address] [place], [place] Protein [Mass/Vol] 5.9 g/dL Low 6.3-8.2 [facility] Comment on above: Performed By: #### H EMDF, BMP3, LFT3, LIPA4, TROPN #### [facility] [address] [place], [place] Albumin [Mass/Vol] 3.2 g/dL Low 3.5-5.0 [facility] Comment on above: Performed By: #### H EMDF, BMP3, LFT3, LIPA4, TROPN #### [facility] [address] [place], [place] Hepatic Function PanelOrdere d By: Gustavo Muniz on 02-17-2019 Albumin [Mass/Vol] 3.2 g/dL Low 3.5 - 5 g/dL [facility] Work Phone: ALP [Catalytic activity/Vol] 75 U/L 38 - 126 U/L [facility] Work Phone: [phone] ALT [Catalytic activity/Vol] 60 U/L 13 - 69 U/L [facility] Work Phone: [phone] AST [Catalytic activity/Vol] 62 U/L High 15 - 46 U/L [facility] Work Phone: [phone] Bilirubin [Mass/Vol] 0.5 mg/dL 0.2 - 1 .3 mg/dL [facility] Work Phone: Bilirubin.indirect [Mass/Vol] 0.0 mg/dL 0 - 0.3 mg/dL [facility] Work Phone: Protein [Mass/Vol] 5.9 g/dL Low 6.3 - 8.2 g/dL [facility] Work Phone: [phone] Lipaseon 02-17-2019 Lipase [Catalytic activity/Vol] 586 U/L High 23-300 [facility] Comment on above: Performed By: #### H EMDF, BMP3, LFT3, LIPA4, TROPN #### [facility] [address] [place], [place] LipaseOrdered By: Gustavo Muniz on 02-17-2019 Lipase [Catalytic activity/Vol] 586 U/L High 23 - 300 U/L [facility] Work Phone: No Panel InformationOrdered By: Gustavo Muniz on 02-17-2019 Interpretation and review of laboratory results Abnormal [facility] Work Phone: Test Performed by [facility], [address] [place] [address] [facility] Work Phone: Basic Metabolic Panelon Calcium [Mass/Vol] 9.4 mg/dL Normal 8.4-10.4 [facility] Comment on above: Performed By: #### H EMDF, BMP3, LFT3, LIPA4, TROPN #### [facility] [address] [place] [address] Glucose [Mass/Vol] 182 mg/dL High 70-100 [facility] Comment on above: Performed By: #### H EMDF, BMP3, LFT3, LIPA4, TROPN #### [address] [address] Urea nitrogen [Mass/Vol] 13 mg/dL Normal 7-20 [facility] Comment on above: Performed By: #### H EMDF, BMP3, LFT3, LIPA4, TROPN #### [address] [address] [place] [address] Anion gap [Moles/Vol] 11 Normal [facility] Comment on above: Performed By: #### H EMDF, BMP3, LFT3, LIPA4, TROPN #### [address] [address] [place] [address] CO2 [Moles/Vol] 25 mmol/L Normal 22-30 [facility] Comment on above: Performed By: #### H EMDF, BMP3, LFT3, LIPA4, TROPN #### [facility] [address] [place] [address] Creatinine [Mass/Vol] 0.74 mg/dL Normal 0.52-1.25 [facility] Comment on above: Performed By: #### H EMDF, BMP3, LFT3, LIPA4, TROPN #### [facility] [address] [place] [address] GFR/1.73 sq M predicted among blacks MDRD (S/P/Bld) [Vol rate/Area] mL/min/{1.73_m2} Normal >60 [facility] Comment on above: Performed By: #### H EMDF, BMP3, LFT3, LIPA4, TROPN #### [address] GFR/1.73 sq M predicted among non-blacks MDRD (S/P/Bld) [Vol rate/Area] mL/min/{1.73_m2} Normal >60 [facility] Comment on above: Result Comment: Sour ce- MDRD equation with creatinine calibration to IDMS(NKDEP) eGFR not recommended for drug dose adjustment Performed By: #### H EMDF, BMP3, LFT3, LIPA4, TROPN #### [address] Potassium [Moles/Vol] 4.2 mmol/L Normal 3.5-5.1 [facility] Comment on above: Performed By: #### H EMDF, BMP3, LFT3, LIPA4, TROPN #### [address] Sodium [Moles/Vol] 140 mmol/L Normal 135-145 [facility] Comment on above: Performed By: #### H EMDF, BMP3, LFT3, LIPA4, TROPN #### [address] Chloride [Moles/Vol] 105 mmol/L Normal 98-107 [facility] Comment on above: Performed By: #### H EMDF, BMP3, LFT3, LIPA4, TROPN #### [address] [address] Basic Metabolic PanelOrdered By: Sharmila Lr on 02-16-2019 Anion gap [Moles/Vol] 11 mmol/L [facility] Work Phone: Calcium [Mass/Vol] 9.4 mg/dL 8.4 - 10. 4 mg/dL [facility] Work Phone: Chloride [Moles/Vol] 105 mmol/L 98 - 10 7 mmol/L [facility] Work Phone: [phone] CO2 [Moles/Vol] 25 mmol/L 22 - 30 mmol/L [facility] Work Phone: Creatinine [Mass/Vol] 0.74 mg/dL 0.52 - 1.25 mg/dL [facility] Work Phone: EGFR IF NonAfrican [place]ian >60.0 >60 mL/min [facility] Work Phone: Comment on above: Source- MDRD equatio n with creatinine calibration to IDMS(NKDEP) eGFR not recommended for drug dose adjustment GFR/1.73 sq M.predicted among blacks MDRD (S/P/Bld) [Vol rate/Area] mL/min/{1.73_m2} >60 mL/min [facility] Work Phone: Glucose [Mass/Vol] 182 mg/dL High 70 - 100 mg/dL [facility] Work Phone: Potassium [Moles/Vol] 4.2 mmol/L 3.5 - 5.1 mmol/L [facility] Work Phone: Sodium [Moles/Vol] 140 mmol/L 135 - 145 mmol/L [facility] Work Phone: [phone] Urea nitrogen [Mass/Vol] 13 mg/dL 7 - 20 mg/dL [facility] Work Phone: CBC Auto DifferentialOrdered By: Sharmila Lr on 02-16-2019 Erythrocyte distribution width (RBC) [Ratio] 12.3 % 11.5 - 14.5 % [facility] Work Phone: Hematocrit (Bld) [Volume fraction] 37.3 % 35 - 47 % [facility] Work Phone: Hemoglobin (Bld) [Mass/Vol] 12.6 g/dL 11.7 - 16 g/dL [facility] Work Phone: Interpretation and review of laboratory results Abnormal [facility] Work Phone: MCH (RBC) [Entitic mass] 32.8 pg 26 - 34 pg [facility] Work Phone: MCHC 33.8 % 32 - 36 % [facility] Work Phone: [phone] MCV (RBC) [Entitic vol] 97.2 fL 79 - 98 fL [employer] Work Phone: [phone] Platelet mean volume (Bld) [Entitic vol] 10.1 fL 7.4 - 10.4 fL [employer] Work Phone: [phone] Platelets (Bld) [#/Vol] 210 10*3/uL 140 - 440 10*3/uL [employer] Work Phone: [phone] RBC (Bld) [#/Vol] 3.84 10*6/uL 3.8 - 5.2 10*6/uL [employer] Work Phone: [phone] WBC (Bld) [#/Vol] 22.3 10*3/uL High 3.6 - 10.7 10*3/uL [employer] Work Phone: Test Performed by [facility], [address] [place] [id number] [place], [place] [address] Work Phone: [phone] Hemogram w/ [employer]od[employer] 02-16 Erythrocyte distribution width (RBC) [Ratio] 12.3 % Normal 11.5-14.5 [facility] Comment on above: Performed By: #### H EMDF, BMP3, LFT3, LIPA4, TROPN #### [facility] [address] Hematocrit (Bld) [Volume fraction] 37.3 % Normal 35.0-47.0 [facility] Comment on above: Performed By: #### H EMDF, BMP3, LFT3, LIPA4, TROPN #### [facility] [email or web address] [address] [place] [phone] Hemoglobin (Bld) [Mass/Vol] 12.6 g/dL Normal 11.7-16.0 [facility] Comment on above: Performed By: #### H EMDF, BMP3, LFT3, LIPA4, TROPN #### [facility] [email or web address] [address] [place] [phone] MCH (RBC) [Entitic mass] 32.8 pg Normal 26.0-34.0 [facility] Comment on above: Performed By: #### H EMDF, BMP3, LFT3, LIPA4, TROPN #### [address] [address] [address] [place], [place] MCHC (RBC) [Mass/Vol] 33.8 % Normal 32.0-36.0 [facility] Comment on above: Performed By: #### H EMDF, BMP3, LFT3, LIPA4, TROPN #### [address] MCV (RBC) [Entitic vol] 97.2 fL Normal 79.0-98.0 [facility] Comment on above: Performed By: #### H EMDF, BMP3, LFT3, LIPA4, TROPN #### [address] Platelet mean volume (Bld) [Entitic vol] 10.1 fL Normal 7.4-10.4 [facility] Comment on above: Performed By: #### H EMDF, BMP3, LFT3, LIPA4, TROPN #### [address] [address] [place], [place] Platelets (Bld) [#/Vol] 210 10*3/uL Normal 140-440 [facility] Comment on above: Performed By: #### H EMDF, BMP3, LFT3, LIPA4, TROPN #### [address] RBC (Bld) [#/Vol] 3.84 10*6/uL Normal 3.80-5.20 [facility] Comment on above: Performed By: #### H EMDF, BMP3, LFT3, LIPA4, TROPN #### [address] WBC (Bld) [#/Vol] 22.3 10*3/uL High 3.6-10.7 [facility] Comment on above: Performed By: #### H EMDF, BMP3, LFT3, LIPA4, TROPN #### [address] Hepatic Functionon 0 ALP [Catalytic activity/Vol] 83 U/L Normal 38-126 [facility] Comment on above: Performed By: #### H EMDF, BMP3, LFT3, LIPA4, TROPN #### [facility] [address] [place], [place] ALT [Catalytic activity/Vol] 81 U/L High 13-69 [facility] Comment on above: Performed By: #### H EMDF, BMP3, LFT3, LIPA4, TROPN #### [address] [address] [place], [place] AST [Catalytic activity/Vol] 100 U/L High 15-46 [facility] Comment on above: Performed By: #### H EMDF, BMP3, LFT3, LIPA4, TROPN #### [address] [address] [place], [place] Bilirubin [Mass/Vol] 0.5 mg/dL Normal 0.2-1.3 [facility] Comment on above: Performed By: #### H EMDF, BMP3, LFT3, LIPA4, TROPN #### [address] [address] [address] [place], [place] Protein [Mass/Vol] 6.7 g/dL Normal 6.3-8.2 [facility] Comment on above: Performed By: #### H EMDF, BMP3, LFT3, LIPA4, TROPN #### [address] Bilirubin.direct [Mass/Vol] 0.0 mg/dL Normal 0.0-0.3 [facility] Comment on above: Performed By: #### H EMDF, BMP3, LFT3, LIPA4, TROPN #### [address] [address] [place], [place] Albumin [Mass/Vol] 3.9 g/dL Normal 3.5-5.0 [facility] Comment on above: Performed By: #### H EMDF, BMP3, LFT3, LIPA4, TROPN #### [address] [address] [place], [place] Hepatic Function PanelOrdere d By: Sharmila Lr on 02-16-2019 Albumin [Mass/Vol] 3.9 g/dL 3.5 - 5 g/dL [facility] Work Phone: [phone] ALP [Catalytic activity/Vol] 83 U/L 38 - 126 U/L [facility] Work Phone: [phone] ALT [Catalytic activity/Vol] 81 U/L High 13 - 69 U/L [facility] Work Phone: [phone] AST [Catalytic activity/Vol] 100 U/L High 15 - 46 U/L [facility] Work Phone: [phone] Bilirubin [Mass/Vol] 0.5 mg/dL 0.2 - 1 .3 mg/dL [facility] Work Phone: [phone] Bilirubin.indirect [Mass/Vol] 0.0 mg/dL 0 - 0.3 mg/dL [facility] Work Phone: [phone] Protein [Mass/Vol] 6.7 g/dL 6.3 - 8.2 g/dL [facility] Work Phone: [phone] Lipaseon 02-16-2019 Lipase [Catalytic activity/Vol] 1101 U/L High 23-300 [facility] Comment on above: Performed By: #### H EMDF, BMP3, LFT3, LIPA4, TROPN #### [address] [address] LipaseOrdered By: Gustavo Muniz on 02-16-2019 Interpretation and review of laboratory results Abnormal [facility] Work Phone: [phone] Lipase [Catalytic activity/Vol] 1101 U/L High 23 - 300 U/L [facility] Work Phone: [phone] Test Performed by [facility], [address], [place] [id number] [place] [address] Work Phone: Manual Diffon 02-16-2019 Abs Lymph Cnt 0.9 10*3/uL Low 1.1-4.5 [facility] Comment on above: Performed By: #### H EMDF, BMP3, LFT3, LIPA4, TROPN #### [facility] [address] [place] [address] Abs Monocyte Cnt 0.9 10*3/uL Normal 0.2-1.1 [facility] Comment on above: Performed By: #### H EMDF, BMP3, LFT3, LIPA4, TROPN #### [address] Abs Neutrophile Cnt 20.5 10*3/uL High 2.2-8.2 [facility] Comment on above: Performed By: #### H EMDF, BMP3, LFT3, LIPA4, TROPN #### [address] Bands 15 % High 0-3 [facility] Comment on above: Performed By: #### H EMDF, BMP3, LFT3, LIPA4, TROPN #### [address] Lymphocytes 4 % Low 20-40 [facility] Comment on above: Performed By: #### H EMDF, BMP3, LFT3, LIPA4, TROPN #### [address] Monocytes 4 % Normal 2-10 [facility] Comment on above: Performed By: #### H EMDF, BMP3, LFT3, LIPA4, TROPN #### [address] RBC morphology finding Nom (Bld) Normal Normal [facility] Comment on above: Performed By: #### H EMDF, BMP3, LFT3, LIPA4, TROPN #### [address] Seg Neutrophils 77 % Normal 40-80 [facility] Comment on above: Performed By: #### H EMDF, BMP3, LFT3, LIPA4, TROPN #### [address] Abs Baso Cnt 0.0 10*3/uL Normal 0.0-0.2 [facility] Comment on above: Performed By: #### H EMDF, BMP3, LFT3, LIPA4, TROPN #### [address] [place] [address] Abs Eosin Cnt 0.0 10*3/uL Normal 0.0-0.5 [facility] Comment on above: Performed By: #### H EMDF, BMP3, LFT3, LIPA4, TROPN #### [facility] [address] [place] [address] Basophils 0 % Normal 0-2 [facility] Comment on above: Performed By: #### H EMDF, BMP3, LFT3, LIPA4, TROPN #### [facility] [address] [place] [address] Cells counted 100 Normal [facility] Comment on above: Performed By: #### H EMDF, BMP3, LFT3, LIPA4, TROPN #### [facility] [address] [place] [address] Eosinophils 0 % Low 1-6 [facility] Comment on above: Performed By: #### H EMDF, BMP3, LFT3, LIPA4, TROPN #### [facility] [address] [place] [address] Manual DifferentialOrdered B y: Lisa Smiley on 02-16-2019 Absolute Baso # 0.0 10*3/uL 0 - 0.2 10*3/uL [facility] Work Phone: [phone] Absolute Eos # 0.0 10*3/uL 0 - 0.5 10*3/uL [facility] Work Phone: [phone] Absolute Lymph # 0.9 10*3/uL Low 1.1 - 4.5 10*3/uL [facility] Work Phone: [phone] Absolute [place] # 0.9 10*3/uL 0.2 - 1.1 10*3/uL [facility] Work Phone: [phone] Absolute Neut # 20.5 10*3/uL High 2.2 - 8.2 10*3/uL [facility] Work Phone: [phone] Bands 15 % High 0 - 3 % [facility] Work Phone: [phone] Basophils 0 % 0 - 2 % [facility] Work Phone: [phone] Eosinophils 0 % Low 1 - 6 % [facility] Work Phone: Interpretation and review of laboratory results Abnormal [facility] Work Phone: [phone] Lymphocytes 4 % Low 20 - 40 % [facility] Work Phone: [phone] Monocytes 4 % 2 - 10 % [facility] Work Phone: RBC Morphology Normal [facility] Work Phone: [phone] Seg Neutrophils 77 % 40 - 80 % [facility] Work Phone: [phone] TOTAL CELLS COUNTED 100 [facility] Work Phone: [phone] Test Performed by [facility], [address] [place] [address] [facility] Work Phone: No Panel InformationOrdered By: Sharmila Lr on 02-16-2019 Interpretation and review of laboratory results Abnormal [facility] Work Phone: Test Performed by [facility], [address] [place] [id number] [facility] Work Phone: Basic Metabolic Panelon Calcium [Mass/Vol] 9.6 mg/dL Normal 8.4-10.4 [facility] Comment on above: Performed By: #### H EMDF, BMP3, LFT3, LIPA4, TROPN #### [address] [address] Glucose [Mass/Vol] 110 mg/dL High 70-100 [facility] Comment on above: Performed By: #### H EMDF, BMP3, LFT3, LIPA4, TROPN #### [address] [address] Urea nitrogen [Mass/Vol] 10 mg/dL Normal 7-20 [facility] Comment on above: Performed By: #### H EMDF, BMP3, LFT3, LIPA4, TROPN #### [address] [address] Anion gap [Moles/Vol] 8 Normal [facility] Comment on above: Performed By: #### H EMDF, BMP3, LFT3, LIPA4, TROPN #### [address] CO2 [Moles/Vol] 28 mmol/L Normal 22-30 [facility] Comment on above: Performed By: #### H EMDF, BMP3, LFT3, LIPA4, TROPN #### [address] Creatinine [Mass/Vol] 0.87 mg/dL Normal 0.52-1.25 [facility] Comment on above: Performed By: #### H EMDF, BMP3, LFT3, LIPA4, TROPN #### [address] GFR/1.73 sq M predicted among blacks MDRD (S/P/Bld) [Vol rate/Area] mL/min/{1.73_m2} Normal >60 [facility] Comment on above: Performed By: #### H EMDF, BMP3, LFT3, LIPA4, TROPN #### [address] GFR/1.73 sq M predicted among non-blacks MDRD (S/P/Bld) [Vol rate/Area] mL/min/{1.73_m2} Normal >60 [facility] Comment on above: Result Comment: Sour ce- MDRD equation with creatinine calibration to IDMS(NKDEP) eGFR not recommended for drug dose adjustment Performed By: #### H EMDF, BMP3, LFT3, LIPA4, TROPN #### [address] Chloride [Moles/Vol] 104 mmol/L Normal 98-107 [facility] Comment on above: Performed By: #### H EMDF, BMP3, LFT3, LIPA4, TROPN #### [address] Potassium [Moles/Vol] 4.0 mmol/L Normal 3.5-5.1 [facility] Comment on above: Performed By: #### H EMDF, BMP3, LFT3, LIPA4, TROPN #### [address] Sodium [Moles/Vol] 141 mmol/L Normal 135-145 [facility] Comment on above: Performed By: #### H EMDF, BMP3, LFT3, LIPA4, TROPN #### [facility] [address] [place] [address] Basic Metabolic PanelOrdered By: Mark Chen on 02-15-2019 Anion gap [Moles/Vol] 8 mmol/L [facility] Work Phone: [phone] Calcium [Mass/Vol] 9.6 mg/dL 8.4 - 10. 4 mg/dL [facility] Work Phone: [phone] Chloride [Moles/Vol] 104 mmol/L 98 - 10 7 mmol/L [facility] Work Phone: [phone] CO2 [Moles/Vol] 28 mmol/L 22 - 30 mmol/L [facility] Work Phone: [phone] Creatinine [Mass/Vol] 0.87 mg/dL 0.52 - 1.25 mg/dL [facility] Work Phone: [phone] EGFR IF NonAfrican [place] >60.0 >60 mL/min [facility] Work Phone: [phone] Comment on above: Source- MDRD equatio n with creatinine calibration to IDMS(NKDEP) eGFR not recommended for drug dose adjustment GFR/1.73 sq M.predicted among blacks MDRD (S/P/Bld) [Vol rate/Area] mL/min/{1.73_m2} >60 mL/min [facility] Work Phone: [phone] Glucose [Mass/Vol] 110 mg/dL High 70 - 100 mg/dL [facility] Work Phone: [phone] Potassium [Moles/Vol] 4.0 mmol/L 3.5 - 5.1 mmol/L [facility] Work Phone: [phone] Sodium [Moles/Vol] 141 mmol/L 135 - 145 mmol/L [facility] Work Phone: [phone] Urea nitrogen [Mass/Vol] 10 mg/dL 7 - 20 mg/dL [facility] Work Phone: [phone] CBC Auto DifferentialOrdered By: Mark Chen on 02-15-2019 Absolute Baso # 0.1 10*3/uL 0 - 0.2 10*3/uL [facility] Work Phone: [phone] Absolute Neut # 5.0 10*3/uL 1.8 - 7 10*3/uL [facility] Work Phone: [phone] Basophils/100 WBC (Bld) 0.9 % 0 - 2 % [facility] Work Phone: [phone] Eosinophils (Bld) [#/Vol] 0.2 10*3/uL 0 - 0.5 10*3/uL [facility] Work Phone: [phone] Eosinophils/100 WBC (Bld) 3.0 % 1 - 6 % [facility] Work Phone: [phone] Erythrocyte distribution width (RBC) [Ratio] 12.1 % 11.5 - 14.5 % [facility] Work Phone: [phone] Granulocytes/100 WBC (Bld) 67.7 % 40 - 80 % [facility] Work Phone: [phone] Hematocrit (Bld) [Volume fraction] 36.6 % 35 - 47 % [facility] Work Phone: [phone] Hemoglobin (Bld) [Mass/Vol] 12.8 g/dL 11.7 - 16 g/dL [facility] Work Phone: [phone] Lymphocytes (Bld) [#/Vol] 1.6 10*3/uL 1 - 4.3 10*3/uL [facility] Work Phone: [phone] Lymphocytes/100 WBC (Bld) 21.4 % 20 - 40 % [facility] Work Phone: [phone] MCH (RBC) [Entitic mass] 32.9 pg 26 - 34 pg [facility] Work Phone: [phone] MCHC 34.8 % 32 - 36 % [facility] Work Phone: [phone] MCV (RBC) [Entitic vol] 94.4 fL 79 - 98 fL [facility] Work Phone: [phone] Monocytes (Bld) [#/Vol] 0.5 10*3/uL 0 - 0.8 10*3/uL [facility] Work Phone: [phone] Monocytes/100 WBC (Bld) 7.0 % 2 - 10 % [facility] Work Phone: Platelet mean volume (Bld) [Entitic vol] 10.3 fL 7.4 - 10.4 fL [facility] Work Phone: Platelets (Bld) [#/Vol] 223 10*3/uL 140 - 440 10*3/uL [facility] Work Phone: RBC (Bld) [#/Vol] 3.88 10*6/uL 3.8 - 5.2 10*6/uL [facility] Work Phone: WBC (Bld) [#/Vol] 7.4 10*3/uL 3.6 - 10.7 10*3/uL [facility] Work Phone: Test Performed by [facility], [address] [place] [id number] [employer] Work Phone: [place] ERCP BILIARY AND PANCREAT IC S&IOrdered By: Lisa Smiley on 02-15-2019 Patient Name: RICARDO VILLALPANDO ---Fluoroscopy--- Exam Date/Time 02/15/2019 08:51:55 EST Exam RF ERCP Biliary and Pancreatic Duct Ordering Physician [id number] LISA RODRIGEZ Accession Number [id number] CTP4 Codes 72741 () Reason For Exam cbd stones Report [...] JEFFREY Transcribed Date and Time: 02/15/2019 8:39 [facility] Work Phone: [facility] Incoming Radiology Results From [facility] - 02/15/2019 8:52 AM EST Patient Name: RICARDO VILLALPANDO ---Fluoroscopy--- Exam Date/Time 02/15/2019 08:51:55 EST Exam RF ERCP Biliary and Pancreatic Duct Ordering Physician LISA RICH Accession Number [id number] CTP4 Codes 03849 () Reason For Exam cbd stones Report [...] JEFFREY Transcribed Date and Time: 02/15/2019 8:39 [facility] Work Phone: Hemogram w/ Autodiffon 02-15 Abs Baso Cnt 0.1 10*3/uL Normal 0.0-0.2 [facility] Comment on above: Performed By: #### H EMDF, BMP3, LFT3, LIPA4, TROPN #### [address] [id number] Abs Neutrophile Cnt 5.0 10*3/uL Normal 1.8-7.0 [facility] Comment on above: Performed By: #### H EMDF, BMP3, LFT3, LIPA4, TROPN #### [place] [address] [place], [place] Basophils/100 WBC (Bld) 0.9 % Normal 0.0-2.0 [facility] Comment on above: Performed By: #### H EMDF, BMP3, LFT3, LIPA4, TROPN #### [address] [place] [address] [place], [place] Eosinophils (Bld) [#/Vol] 0.2 10*3/uL Normal 0.0-0.5 [facility] Comment on above: Performed By: #### H EMDF, BMP3, LFT3, LIPA4, TROPN #### [address] Eosinophils/100 WBC (Bld) 3.0 % Normal 1.0-6.0 [facility] Comment on above: Performed By: #### H EMDF, BMP3, LFT3, LIPA4, TROPN #### [address] Erythrocyte distribution width (RBC) [Ratio] 12.1 % Normal 11.5-14.5 [facility] Comment on above: Performed By: #### H EMDF, BMP3, LFT3, LIPA4, TROPN #### [address] Granulocytes/100 WBC (Bld) 67.7 % Normal 40.0-80.0 [facility] Comment on above: Performed By: #### H EMDF, BMP3, LFT3, LIPA4, TROPN #### [address] Hematocrit (Bld) [Volume fraction] 36.6 % Normal 35.0-47.0 [facility] Comment on above: Performed By: #### H EMDF, BMP3, LFT3, LIPA4, TROPN #### [address] Hemoglobin (Bld) [Mass/Vol] 12.8 g/dL Normal 11.7-16.0 [facility] Comment on above: Performed By: #### H EMDF, BMP3, LFT3, LIPA4, TROPN #### [address] Lymphocytes (Bld) [#/Vol] 1.6 10*3/uL Normal 1.0-4.3 [facility] Comment on above: Performed By: #### H EMDF, BMP3, LFT3, LIPA4, TROPN #### [address] [place] [address] [place], [place] Lymphocytes/100 WBC (Bld) 21.4 % Normal 20.0-40.0 [facility] Comment on above: Performed By: #### H EMDF, BMP3, LFT3, LIPA4, TROPN #### [address] MCH (RBC) [Entitic mass] 32.9 pg Normal 26.0-34.0 [facility] Comment on above: Performed By: #### H EMDF, BMP3, LFT3, LIPA4, TROPN #### [address] MCHC (RBC) [Mass/Vol] 34.8 % Normal 32.0-36.0 [facility] Comment on above: Performed By: #### H EMDF, BMP3, LFT3, LIPA4, TROPN #### [address] MCV (RBC) [Entitic vol] 94.4 fL Normal 79.0-98.0 [facility] Comment on above: Performed By: #### H EMDF, BMP3, LFT3, LIPA4, TROPN #### [address] Monocytes (Bld) [#/Vol] 0.5 10*3/uL Normal 0.0-0.8 [facility] Comment on above: Performed By: #### H EMDF, BMP3, LFT3, LIPA4, TROPN #### [address] Monocytes/100 WBC (Bld) 7.0 % Normal 2.0-10.0 [facility] Comment on above: Performed By: #### H EMDF, BMP3, LFT3, LIPA4, TROPN #### [address] [place] [address] [place], [place] Platelet mean volume (Bld) [Entitic vol] 10.3 fL Normal 7.4-10.4 [facility] Comment on above: Performed By: #### H EMDF, BMP3, LFT3, LIPA4, TROPN #### [address] [place] [address] [place], [place] Platelets (Bld) [#/Vol] 223 10*3/uL Normal 140-440 [facility] Comment on above: Performed By: #### H EMDF, BMP3, LFT3, LIPA4, TROPN #### [address] [place] [address] [place], [place] RBC (Bld) [#/Vol] 3.88 10*6/uL Normal 3.80-5.20 [facility] Comment on above: Performed By: #### H EMDF, BMP3, LFT3, LIPA4, TROPN #### [address] [place] [address] [place], [place] WBC (Bld) [#/Vol] 7.4 10*3/uL Normal 3.6-10.7 [facility] Comment on above: Performed By: #### H EMDF, BMP3, LFT3, LIPA4, TROPN #### [address] [place] [address] [place], [place] Hepatic Functionon 0 ALP [Catalytic activity/Vol] 94 U/L Normal 38-126 [facility] Comment on above: Performed By: #### H EMDF, BMP3, LFT3, LIPA4, TROPN #### [address] ALT [Catalytic activity/Vol] 76 U/L High 13-69 [facility] Comment on above: Performed By: #### H EMDF, BMP3, LFT3, LIPA4, TROPN #### [place] [address] [place], [place] AST [Catalytic activity/Vol] 80 U/L High 15-46 [facility] Comment on above: Performed By: #### H EMDF, BMP3, LFT3, LIPA4, TROPN #### [facility] [address] [place], [place] Bilirubin [Mass/Vol] 0.6 mg/dL Normal 0.2-1.3 [facility] Comment on above: Performed By: #### H EMDF, BMP3, LFT3, LIPA4, TROPN #### [address] [place] [address] [place], [place] Protein [Mass/Vol] 7.0 g/dL Normal 6.3-8.2 [facility] Comment on above: Performed By: #### H EMDF, BMP3, LFT3, LIPA4, TROPN #### [place] [address] [place], [place] Bilirubin.direct [Mass/Vol] 0.0 mg/dL Normal 0.0-0.3 [facility] Comment on above: Performed By: #### H EMDF, BMP3, LFT3, LIPA4, TROPN #### [address] [place] [address] [place], [place] Albumin [Mass/Vol] 3.7 g/dL Normal 3.5-5.0 [facility] Comment on above: Performed By: #### H EMDF, BMP3, LFT3, LIPA4, TROPN #### [address] [place] [address] [place], [place] Hepatic Function PanelOrdere d By: Sharmila Lr on 02-15-2019 Albumin [Mass/Vol] 3.7 g/dL 3.5 - 5 g/dL [facility] Work Phone: ALP [Catalytic activity/Vol] 94 U/L 38 - 126 U/L [facility] Work Phone: [phone] ALT [Catalytic activity/Vol] 76 U/L High 13 - 69 U/L [facility] Work Phone: AST [Catalytic activity/Vol] 80 U/L High 15 - 46 U/L [facility] Work Phone: Bilirubin [Mass/Vol] 0.6 mg/dL 0.2 - 1 .3 mg/dL [facility] Work Phone: Bilirubin.indirect [Mass/Vol] 0.0 mg/dL 0 - 0.3 mg/dL [facility] Work Phone: Protein [Mass/Vol] 7.0 g/dL 6.3 - 8.2 g/dL [facility] Work Phone: No Panel InformationOrdered By: Mark Chen on 02-15-2019 Interpretation and review of laboratory results Abnormal [facility] Work Phone: Test Performed by [place] [id number] [facility] Work Phone: RF ERCP Biliary and Pancreat ic Ducton 02-15-2019 RF ERCP Biliary and Pancreatic Duct Patient Name: RICARDO VILLALPANDO Fluoroscopy Exam Date/Time 02/15/2019 08:51:55 EST Exam RF ERCP Biliary and Pancreatic Duct Ordering Physician LISA RICH Accession Number [id number] CTP4 Codes 74860 () Reason For Exam cbd stones Report [...] and pancreatic stents. Fluoro time per Dr. Davsi in endoscopy. Report Dictated on Final Dictated: 02/15/2019 8:39 am Dictating Physician: MD FONTENOT JEFFREY Signed Date and Time: 02/15/2019 8:42 am Signed by: MD FONTENOT JEFFREY Transcribed Date and Time: 02/15/2019 8:39 Normal [facility] Surgical Pathologyon 020 Surgical Pathology [id number] [facility] DE[facility] PATHOLOGY AND LABORATORY MEDICINE [address] [place] [address] [place] [address] FINAL SURGICAL PATHOLOGY REPORT NAME: RICARDO VILLALPANDO : 1940 78 Y F [facility] NO.: [id number] LOCATION: I 5125 01 PROCEDURE 02/15/2019 DATE: SURGEON: OSMAR ANDERSON M.D. [...] are identified impacted within the cystic duct. Range Mounter sections are submitted in a single cassette. (bits ss, 1) JCK/TRELL Disclaimer: The following statement applies to all immunohistochemistry, in situ hybridization, molecular studies, and immunofluorescence testing. The use of one or more reagents in the above tests is regulated as an analyte specific reagent (ASR). These tests were developed and their performance characteristics determined by the clinical laboratories of [facility]. They have not been cleared by [...] negativity on decalcified specimens. Professional Performing Location: [address] [address]. DEPARTMENT OF PATHOLOGY AND LABORATORY MEDICINE [place], [place] [address] Normal [facility] TS GELon 02-15-2019 TS GEL ABO Group: O Rh, Gel: POS Antibody Screen Gel: NEG Normal [facility] Comment on above: Performed By: #### H EMDF, BMP3, LFT3, LIPA4, TROPN #### [address] [address] TYPE AND SCREENOrdered By: Tyrone Chen on 02-15-2019 ABO Grouping O [facility] Work Phone: Rh Type Positive [facility] Work Phone: Comment on above: Test Performed by [address] [address] Test Performed by [id number] [place] [address] Work Phone: Potassiumon 02-14-2019 Potassium [Moles/Vol] 3.8 mmol/L Normal 3.5-5.1 [facility] Comment on above: Performed By: #### H EMDF, BMP3, LFT3, LIPA4, TROPN #### [facility] [address] [place] [address] PotassiumOrdered By: Luciano Muniz on 02-14-2019 Potassium [Moles/Vol] 3.8 mmol/L 3.5 - 5.1 mmol/L [facility] Work Phone: Test Performed by [facility], [address] [place], [place] [id number] [place] [address] Work Phone: Basic Metabolic Panelon Anion gap [Moles/Vol] 7 Normal [facility] Comment on above: Performed By: #### H EMDF, BMP3, LFT3, LIPA4, TROPN #### [address] [address] [place] [address] Calcium [Mass/Vol] 9.0 mg/dL Normal 8.4-10.4 [facility] Comment on above: Performed By: #### H EMDF, BMP3, LFT3, LIPA4, TROPN #### [address] [address] CO2 [Moles/Vol] 26 mmol/L Normal 22-30 [facility] Comment on above: Performed By: #### H EMDF, BMP3, LFT3, LIPA4, TROPN #### [address] [address] [place] [address] Glucose [Mass/Vol] 93 mg/dL Normal 70-100 [facility] Comment on above: Performed By: #### H EMDF, BMP3, LFT3, LIPA4, TROPN #### [address] [address] [place] [address] Urea nitrogen [Mass/Vol] 6 mg/dL Low 7-20 [facility] Comment on above: Performed By: #### H EMDF, BMP3, LFT3, LIPA4, TROPN #### [address] [place] [address] [place], [place] Creatinine [Mass/Vol] 0.68 mg/dL Normal 0.52-1.25 [facility] Comment on above: Performed By: #### H EMDF, BMP3, LFT3, LIPA4, TROPN #### [address] GFR/1.73 sq M predicted among blacks MDRD (S/P/Bld) [Vol rate/Area] mL/min/{1.73_m2} Normal >60 [facility] Comment on above: Performed By: #### H EMDF, BMP3, LFT3, LIPA4, TROPN #### [address] GFR/1.73 sq M predicted among non-blacks MDRD (S/P/Bld) [Vol rate/Area] mL/min/{1.73_m2} Normal >60 [facility] Comment on above: Result Comment: Sour ce- MDRD equation with creatinine calibration to IDMS(NKDEP) eGFR not recommended for drug dose adjustment Performed By: #### H EMDF, BMP3, LFT3, LIPA4, TROPN #### [address] Chloride [Moles/Vol] 108 mmol/L High 98-107 [facility] Comment on above: Performed By: #### H EMDF, BMP3, LFT3, LIPA4, TROPN #### [address] Potassium [Moles/Vol] 3.4 mmol/L Low 3.5-5.1 [facility] Comment on above: Performed By: #### H EMDF, BMP3, LFT3, LIPA4, TROPN #### [address] Sodium [Moles/Vol] 142 mmol/L Normal 135-145 [facility] Comment on above: Performed By: #### H EMDF, BMP3, LFT3, LIPA4, TROPN #### [facility] [address] [place] [phone] Basic Metabolic Panel w/ Ref tere to MGOrdered By: Gem Lowery on 02-13-2019 Anion gap [Moles/Vol] 7 mmol/L [facility] Work Phone: [phone] Calcium [Mass/Vol] 9.0 mg/dL 8.4 - 10. 4 mg/dL [facility] Work Phone: [phone] Chloride [Moles/Vol] 108 mmol/L High 98 - 10 7 mmol/L [facility] Work Phone: ) [phone] CO2 [Moles/Vol] 26 mmol/L 22 - 30 mmol/L [facility] Work Phone: [phone] Creatinine [Mass/Vol] 0.68 mg/dL 0.52 - 1.25 mg/dL [facility] Work Phone: [phone] EGFR IF NonAfrican Bruneian >60.0 >60 mL/min [facility] Work Phone: Comment on above: Source- MDRD equatio n with creatinine calibration to IDMS(NKDEP) eGFR not recommended for drug dose adjustment GFR/1.73 sq M.predicted among blacks MDRD (S/P/Bld) [Vol rate/Area] mL/min/{1.73_m2} >60 mL/min [facility] Work Phone: [phone] Glucose [Mass/Vol] 93 mg/dL 70 - 100 mg/dL [facility] Work Phone: [phone] Potassium [Moles/Vol] 3.4 mmol/L Low 3.5 - 5.1 mmol/L [facility] Work Phone: [phone] Sodium [Moles/Vol] 142 mmol/L 135 - 145 mmol/L [facility] Work Phone: [phone] Urea nitrogen [Mass/Vol] 6 mg/dL Low 7 - 20 mg/dL [facility] Work Phone: [phone] CBC Auto DifferentialOrdered By: Gem Lowery on 02-13-2019 Absolute Baso # 0.1 10*3/uL 0 - 0.2 10*3/uL [facility] Work Phone: [phone] Absolute Neut # 3.9 10*3/uL 1.8 - 7 10*3/uL [facility] Work Phone: [phone] Basophils/100 WBC (Bld) 1.1 % 0 - 2 % [facility] Work Phone: [phone] Eosinophils (Bld) [#/Vol] 0.2 10*3/uL 0 - 0.5 10*3/uL [facility] Work Phone: [phone] Eosinophils/100 WBC (Bld) 3.4 % 1 - 6 % [facility] Work Phone: [phone] Erythrocyte distribution width (RBC) [Ratio] 12.3 % 11.5 - 14.5 % [facility] Work Phone: [phone] Granulocytes/100 WBC (Bld) 68.3 % 40 - 80 % [facility] Work Phone: [phone] Hematocrit (Bld) [Volume fraction] 32.8 % Low 35 - 47 % [facility] Work Phone: [phone] Hemoglobin (Bld) [Mass/Vol] 11.6 g/dL Low 11.7 - 16 g/dL [employer] Work Phone: [phone] Interpretation and review of laboratory results Abnormal [employer] Work Phone: [phone] Lymphocytes (Bld) [#/Vol] 1.1 10*3/uL 1 - 4.3 10*3/uL [facility] Work Phone: [phone] Lymphocytes/100 WBC (Bld) 18.6 % Low 20 - 40 % [facility] Work Phone: [phone] MCH (RBC) [Entitic mass] 33.3 pg 26 - 34 pg [facility] Work Phone: [phone] MCHC 35.2 % 32 - 36 % [facility] Work Phone: [phone] MCV (RBC) [Entitic vol] 94.4 fL 79 - 98 fL [facility] Work Phone: [phone] Monocytes (Bld) [#/Vol] 0.5 10*3/uL 0 - 0.8 10*3/uL [facility] Work Phone: [phone] Monocytes/100 WBC (Bld) 8.6 % 2 - 10 % [facility] Work Phone: [phone] Platelet mean volume (Bld) [Entitic vol] 10.1 fL 7.4 - 10.4 fL [facility] Work Phone: [phone] Platelets (Bld) [#/Vol] 196 10*3/uL 140 - 440 10*3/uL [facility] Work Phone: [phone] RBC (Bld) [#/Vol] 3.48 10*6/uL Low 3.8 - 5.2 10*6/uL [facility] Work Phone: [phone] WBC (Bld) [#/Vol] 5.7 10*3/uL 3.6 - 10.7 10*3/uL [facility] Work Phone: Test Performed by [facility], [address] [place] [address] Work Phone: Hemogram w/ Autodiffon 02-13 Abs Baso Cnt 0.1 10*3/uL Normal 0.0-0.2 [facility] Comment on above: Performed By: #### H EMDF, BMP3, LFT3, LIPA4, TROPN #### [address] [address] Abs Neutrophile Cnt 3.9 10*3/uL Normal 1.8-7.0 [facility] Comment on above: Performed By: #### H EMDF, BMP3, LFT3, LIPA4, TROPN #### [address] [address] Basophils/100 WBC (Bld) 1.1 % Normal 0.0-2.0 [facility] Comment on above: Performed By: #### H EMDF, BMP3, LFT3, LIPA4, TROPN #### [address] [address] Eosinophils (Bld) [#/Vol] 0.2 10*3/uL Normal 0.0-0.5 [facility] Comment on above: Performed By: #### H EMDF, BMP3, LFT3, LIPA4, TROPN #### [address] Eosinophils/100 WBC (Bld) 3.4 % Normal 1.0-6.0 [facility] Comment on above: Performed By: #### H EMDF, BMP3, LFT3, LIPA4, TROPN #### [address] Erythrocyte distribution width (RBC) [Ratio] 12.3 % Normal 11.5-14.5 [facility] Comment on above: Performed By: #### H EMDF, BMP3, LFT3, LIPA4, TROPN #### [address] Granulocytes/100 WBC (Bld) 68.3 % Normal 40.0-80.0 [facility] Comment on above: Performed By: #### H EMDF, BMP3, LFT3, LIPA4, TROPN #### [address] Hematocrit (Bld) [Volume fraction] 32.8 % Low 35.0-47.0 [facility] Comment on above: Performed By: #### H EMDF, BMP3, LFT3, LIPA4, TROPN #### [address] Hemoglobin (Bld) [Mass/Vol] 11.6 g/dL Low 11.7-16.0 [facility] Comment on above: Performed By: #### H EMDF, BMP3, LFT3, LIPA4, TROPN #### [address] Lymphocytes (Bld) [#/Vol] 1.1 10*3/uL Normal 1.0-4.3 [facility] Comment on above: Performed By: #### H EMDF, BMP3, LFT3, LIPA4, TROPN #### [address] Lymphocytes/100 WBC (Bld) 18.6 % Low 20.0-40.0 [facility] Comment on above: Performed By: #### H EMDF, BMP3, LFT3, LIPA4, TROPN #### [place] [address] [address] [place], [place] MCH (RBC) [Entitic mass] 33.3 pg Normal 26.0-34.0 [facility] Comment on above: Performed By: #### H EMDF, BMP3, LFT3, LIPA4, TROPN #### [address] MCHC (RBC) [Mass/Vol] 35.2 % Normal 32.0-36.0 [facility] Comment on above: Performed By: #### H EMDF, BMP3, LFT3, LIPA4, TROPN #### [address] MCV (RBC) [Entitic vol] 94.4 fL Normal 79.0-98.0 [facility] Comment on above: Performed By: #### H EMDF, BMP3, LFT3, LIPA4, TROPN #### [address] Monocytes (Bld) [#/Vol] 0.5 10*3/uL Normal 0.0-0.8 [facility] Comment on above: Performed By: #### H EMDF, BMP3, LFT3, LIPA4, TROPN #### [address] Monocytes/100 WBC (Bld) 8.6 % Normal 2.0-10.0 [facility] Comment on above: Performed By: #### H EMDF, BMP3, LFT3, LIPA4, TROPN #### [address] Platelet mean volume (Bld) [Entitic vol] 10.1 fL Normal 7.4-10.4 [facility] Comment on above: Performed By: #### H EMDF, BMP3, LFT3, LIPA4, TROPN #### [address] Platelets (Bld) [#/Vol] 196 10*3/uL Normal 140-440 [facility] Comment on above: Performed By: #### H EMDF, BMP3, LFT3, LIPA4, TROPN #### [place] [address] [address] [place], [place] RBC (Bld) [#/Vol] 3.48 10*6/uL Low 3.80-5.20 [facility] Comment on above: Performed By: #### H EMDF, BMP3, LFT3, LIPA4, TROPN #### [place] [address] [address] [place], [place] WBC (Bld) [#/Vol] 5.7 10*3/uL Normal 3.6-10.7 [facility] Comment on above: Performed By: #### H EMDF, BMP3, LFT3, LIPA4, TROPN #### [place] [address] [address] [place], [place] Hepatic Functionon 0 ALP [Catalytic activity/Vol] 77 U/L Normal 38-126 [facility] Comment on above: Performed By: #### H EMDF, BMP3, LFT3, LIPA4, TROPN #### [place] [address] [address] [place], [place] ALT [Catalytic activity/Vol] 66 U/L Normal 13-69 [facility] Comment on above: Performed By: #### H EMDF, BMP3, LFT3, LIPA4, TROPN #### [place] [address] [address] [place], [place] AST [Catalytic activity/Vol] 62 U/L High 15-46 [facility] Comment on above: Performed By: #### H EMDF, BMP3, LFT3, LIPA4, TROPN #### [place] [address] [address] [place], [place] Bilirubin [Mass/Vol] 0.7 mg/dL Normal 0.2-1.3 [facility] Comment on above: Performed By: #### H EMDF, BMP3, LFT3, LIPA4, TROPN #### [place] [address] [address] [place], [place] Protein [Mass/Vol] 5.8 g/dL Low 6.3-8.2 [facility] Comment on above: Performed By: #### H EMDF, BMP3, LFT3, LIPA4, TROPN #### [address] [address] Bilirubin.direct [Mass/Vol] 0.0 mg/dL Normal 0.0-0.3 [facility] Comment on above: Performed By: #### H EMDF, BMP3, LFT3, LIPA4, TROPN #### [address] Albumin [Mass/Vol] 3.0 g/dL Low 3.5-5.0 [facility] Comment on above: Performed By: #### H EMDF, BMP3, LFT3, LIPA4, TROPN #### [address] Hepatic Function PanelOrdere d By: Gem Lowery on 02-13-2019 Albumin [Mass/Vol] 3.0 g/dL Low 3.5 - 5 g/dL [facility] Work Phone: ALP [Catalytic activity/Vol] 77 U/L 38 - 126 U/L [facility] Work Phone: ALT [Catalytic activity/Vol] 66 U/L 13 - 69 U/L [facility] Work Phone: [phone] AST [Catalytic activity/Vol] 62 U/L High 15 - 46 U/L [facility] Work Phone: Bilirubin [Mass/Vol] 0.7 mg/dL 0.2 - 1 .3 mg/dL [facility] Work Phone: Bilirubin.indirect [Mass/Vol] 0.0 mg/dL 0 - 0.3 mg/dL [facility] Work Phone: Protein [Mass/Vol] 5.8 g/dL Low 6.3 - 8.2 g/dL [facility] Work Phone: Magnesiumon 02-13-2019 Magnesium [Mass/Vol] 1.7 mg/dL Normal 1.6-2.3 [facility] Comment on above: Performed By: #### H EMDF, BMP3, LFT3, LIPA4, TROPN #### [facility] [address] [place] [address] MagnesiumOrdered By: Maria C Lowery on 02-13-2019 Magnesium [Mass/Vol] 1.7 mg/dL 1.6 - 2 .3 mg/dL [facility] Work Phone: Test Performed by [facility], [address] [place] [id number] [place], [place] [address] Work Phone: No Panel InformationOrdered By: Gem oLwery on 02-13-2019 Interpretation and review of laboratory results Abnormal [facility] Work Phone: Test Performed by [facility], [address] [place] [phone] [place], [place] [address] Work Phone: Add On Lab TestOrdered By: Juana Lowery on 02-12-2019 Add On Accepted [facility] Work Phone: Comment on above: Specimen available & acceptable for analysis. Test Performed by [facility], [address] [place] [id number] [place], [place] [address] Work Phone: Add on test from HISon 02-12 Add on test from [facility] Accepted Normal [facility] Comment on above: Result Comment: Spec imen available & acceptable for analysis. Performed By: #### H EMDF, BMP3, LFT3, LIPA4, TROPN #### [facility] [place] [address] Bilirubin, DirectOrdered By: Sonny Peres on 02-12-2019 Bilirubin.indirect [Mass/Vol] 0.0 mg/dL 0 - 0.3 mg/dL [facility] Work Phone: Bilirubin,Directon 0 Bilirubin.direct [Mass/Vol] 0.0 mg/dL Normal 0.0-0.3 [facility] Comment on above: Performed By: #### H EMDF, BMP3, LFT3, LIPA4, TROPN #### [facility] [place] [address] CBC auto differentialOrdered By: Sonny Peres on 02-12-2019 Absolute Baso # 0.1 10*3/uL 0 - 0.2 10*3/uL [facility] Work Phone: [phone] Absolute Neut # 4.0 10*3/uL 1.8 - 7 10*3/uL [facility] Work Phone: [phone] Basophils/100 WBC (Bld) 0.9 % 0 - 2 % [facility] Work Phone: [phone] Eosinophils (Bld) [#/Vol] 0.2 10*3/uL 0 - 0.5 10*3/uL [facility] Work Phone: [phone] Eosinophils/100 WBC (Bld) 3.4 % 1 - 6 % [facility] Work Phone: [phone] Erythrocyte distribution width (RBC) [Ratio] 12.4 % 11.5 - 14.5 % [facility] Work Phone: [phone] Granulocytes/100 WBC (Bld) 71.5 % 40 - 80 % [facility] Work Phone: [phone] Hematocrit (Bld) [Volume fraction] 32.5 % Low 35 - 47 % [facility] Work Phone: [phone] Hemoglobin (Bld) [Mass/Vol] 11.1 g/dL Low 11.7 - 16 g/dL [facility] Work Phone: [phone] Interpretation and review of laboratory results Abnormal [facility] Work Phone: [phone] Lymphocytes (Bld) [#/Vol] 1.0 10*3/uL 1 - 4.3 10*3/uL [facility] Work Phone: [phone] Lymphocytes/100 WBC (Bld) 17.7 % Low 20 - 40 % [facility] Work Phone: [phone] MCH (RBC) [Entitic mass] 33.0 pg 26 - 34 pg [facility] Work Phone: [phone] MCHC 34.2 % 32 - 36 % [facility] Work Phone: [phone] MCV (RBC) [Entitic vol] 96.5 fL 79 - 98 fL [facility] Work Phone: [phone] Monocytes (Bld) [#/Vol] 0.4 10*3/uL 0 - 0.8 10*3/uL [facility] Work Phone: Monocytes/100 WBC (Bld) 6.5 % 2 - 10 % [employer] Work Phone: Platelet mean volume (Bld) [Entitic vol] 10.3 fL 7.4 - 10.4 fL [employer] Work Phone: Platelets (Bld) [#/Vol] 163 10*3/uL 140 - 440 10*3/uL [facility] Work Phone: RBC (Bld) [#/Vol] 3.37 10*6/uL Low 3.8 - 5.2 10*6/uL [employer] Work Phone: WBC (Bld) [#/Vol] 5.5 10*3/uL 3.6 - 10.7 10*3/uL [employer] Work Phone: Test Performed by [facility], [address] [place] [address] [facility] Work Phone: Comp Panel with Mg Reflexon 02-12-2019 ALP [Catalytic activity/Vol] 86 U/L Normal 38-126 [facility] Comment on above: Performed By: #### H EMDF, BMP3, LFT3, LIPA4, TROPN #### [address] [address] ALT [Catalytic activity/Vol] 81 U/L High 13-69 [facility] Comment on above: Performed By: #### H EMDF, BMP3, LFT3, LIPA4, TROPN #### [address] [address] Anion gap [Moles/Vol] 4 Normal [facility] Comment on above: Performed By: #### H EMDF, BMP3, LFT3, LIPA4, TROPN #### [address] [address] AST [Catalytic activity/Vol] 87 U/L High 15-46 [facility] Comment on above: Performed By: #### H EMDF, BMP3, LFT3, LIPA4, TROPN #### [address] [address] [address] [place], [place] Bilirubin [Mass/Vol] 0.6 mg/dL Normal 0.2-1.3 [facility] Comment on above: Performed By: #### H EMDF, BMP3, LFT3, LIPA4, TROPN #### [address] [address] [address] [place], [place] Calcium [Mass/Vol] 8.8 mg/dL Normal 8.4-10.4 [facility] Comment on above: Performed By: #### H EMDF, BMP3, LFT3, LIPA4, TROPN #### [address] [address] [address] [place], [place] CO2 [Moles/Vol] 27 mmol/L Normal 22-30 [facility] Comment on above: Performed By: #### H EMDF, BMP3, LFT3, LIPA4, TROPN #### [address] [address] [address] [place], [place] Glucose [Mass/Vol] 84 mg/dL Normal 70-100 [facility] Comment on above: Performed By: #### H EMDF, BMP3, LFT3, LIPA4, TROPN #### [address] [address] [address] [place], [place] Protein [Mass/Vol] 5.5 g/dL Low 6.3-8.2 [facility] Comment on above: Performed By: #### H EMDF, BMP3, LFT3, LIPA4, TROPN #### [address] [address] [address] [place], [place] Urea nitrogen [Mass/Vol] 11 mg/dL Normal 7-20 [facility] Comment on above: Performed By: #### H EMDF, BMP3, LFT3, LIPA4, TROPN #### [address] [address] [address] [place], [place] Creatinine [Mass/Vol] 0.78 mg/dL Normal 0.52-1.25 [facility] Comment on above: Performed By: #### H EMDF, BMP3, LFT3, LIPA4, TROPN #### [address] [address] [address] [place], [place] GFR/1.73 sq M predicted among blacks MDRD (S/P/Bld) [Vol rate/Area] mL/min/{1.73_m2} Normal >60 [facility] Comment on above: Performed By: #### H EMDF, BMP3, LFT3, LIPA4, TROPN #### [address] [address] [address] [place], [place] GFR/1.73 sq M predicted among non-blacks MDRD (S/P/Bld) [Vol rate/Area] mL/min/{1.73_m2} Normal >60 [facility] Comment on above: Result Comment: Sour ce- MDRD equation with creatinine calibration to IDMS(NKDEP) eGFR not recommended for drug dose adjustment Performed By: #### H EMDF, BMP3, LFT3, LIPA4, TROPN #### [address] [address] [address] [place], [place] Albumin [Mass/Vol] 2.9 g/dL Low 3.5-5.0 [facility] Comment on above: Performed By: #### H EMDF, BMP3, LFT3, LIPA4, TROPN #### [address] [address] [address] [place], [place] Chloride [Moles/Vol] 110 mmol/L High 98-107 [facility] Comment on above: Performed By: #### H EMDF, BMP3, LFT3, LIPA4, TROPN #### [address] [address] [address] [place], [place] Potassium [Moles/Vol] 3.6 mmol/L Normal 3.5-5.1 [facility] Comment on above: Performed By: #### H EMDF, BMP3, LFT3, LIPA4, TROPN #### [address] [address] [address] [place], [place] Sodium [Moles/Vol] 142 mmol/L Normal 135-145 [facility] Comment on above: Performed By: #### H EMDF, BMP3, LFT3, LIPA4, TROPN #### [address] [address] [address] [place], [place] Comprehensive Metabolic Pane l w/ Reflex to MGOrdered By: Sonny Peres on 02-12-2019 Albumin [Mass/Vol] 2.9 g/dL Low 3.5 - 5 g/dL [facility] Work Phone: ALP [Catalytic activity/Vol] 86 U/L 38 - 126 U/L [facility] Work Phone: ALT [Catalytic activity/Vol] 81 U/L High 13 - 69 U/L [facility] Work Phone: Anion gap [Moles/Vol] 4 mmol/L [facility] Work Phone: AST [Catalytic activity/Vol] 87 U/L High 15 - 46 U/L [facility] Work Phone: Bilirubin [Mass/Vol] 0.6 mg/dL 0.2 - 1 .3 mg/dL [facility] Work Phone: Calcium [Mass/Vol] 8.8 mg/dL 8.4 - 10. 4 mg/dL [facility] Work Phone: [phone] Chloride [Moles/Vol] 110 mmol/L High 98 - 10 7 mmol/L [facility] Work Phone: CO2 [Moles/Vol] 27 mmol/L 22 - 30 mmol/L [facility] Work Phone: Creatinine [Mass/Vol] 0.78 mg/dL 0.52 - 1.25 mg/dL [facility] Work Phone: EGFR IF NonAfrican Bruneian >60.0 >60 mL/min [facility] Work Phone: Comment on above: Source- MDRD equatio n with creatinine calibration to IDMS(NKDEP) eGFR not recommended for drug dose adjustment GFR/1.73 sq M.predicted among blacks MDRD (S/P/Bld) [Vol rate/Area] mL/min/{1.73_m2} >60 mL/min [facility] Work Phone: Glucose [Mass/Vol] 84 mg/dL 70 - 100 mg/dL [facility] Work Phone: Interpretation and review of laboratory results Abnormal [facility] Work Phone: Potassium [Moles/Vol] 3.6 mmol/L 3.5 - 5.1 mmol/L [facility] Work Phone: Protein [Mass/Vol] 5.5 g/dL Low 6.3 - 8.2 g/dL [facility] Work Phone: Sodium [Moles/Vol] 142 mmol/L 135 - 145 mmol/L [facility] Work Phone: Urea nitrogen [Mass/Vol] 11 mg/dL 7 - 20 mg/dL [facility] Work Phone: Test Performed by [facility], [address] [place] [address] [facility] Work Phone: Hemogram w/ Autodiffon 02-12 Abs Baso Cnt 0.1 10*3/uL Normal 0.0-0.2 [facility] Comment on above: Performed By: #### H EMDF, BMP3, LFT3, LIPA4, TROPN #### [address] [address] Abs Neutrophile Cnt 4.0 10*3/uL Normal 1.8-7.0 [facility] Comment on above: Performed By: #### H EMDF, BMP3, LFT3, LIPA4, TROPN #### [address] [address] Basophils/100 WBC (Bld) 0.9 % Normal 0.0-2.0 [facility] Comment on above: Performed By: #### H EMDF, BMP3, LFT3, LIPA4, TROPN #### [address] [address] Eosinophils (Bld) [#/Vol] 0.2 10*3/uL Normal 0.0-0.5 [facility] Comment on above: Performed By: #### H EMDF, BMP3, LFT3, LIPA4, TROPN #### [address] [address] Eosinophils/100 WBC (Bld) 3.4 % Normal 1.0-6.0 [facility] Comment on above: Performed By: #### H EMDF, BMP3, LFT3, LIPA4, TROPN #### [address] Erythrocyte distribution width (RBC) [Ratio] 12.4 % Normal 11.5-14.5 [facility] Comment on above: Performed By: #### H EMDF, BMP3, LFT3, LIPA4, TROPN #### [address] Granulocytes/100 WBC (Bld) 71.5 % Normal 40.0-80.0 [facility] Comment on above: Performed By: #### H EMDF, BMP3, LFT3, LIPA4, TROPN #### [address] Hematocrit (Bld) [Volume fraction] 32.5 % Low 35.0-47.0 [facility] Comment on above: Performed By: #### H EMDF, BMP3, LFT3, LIPA4, TROPN #### [address] Hemoglobin (Bld) [Mass/Vol] 11.1 g/dL Low 11.7-16.0 [facility] Comment on above: Performed By: #### H EMDF, BMP3, LFT3, LIPA4, TROPN #### [address] Lymphocytes (Bld) [#/Vol] 1.0 10*3/uL Normal 1.0-4.3 [facility] Comment on above: Performed By: #### H EMDF, BMP3, LFT3, LIPA4, TROPN #### [address] Lymphocytes/100 WBC (Bld) 17.7 % Low 20.0-40.0 [facility] Comment on above: Performed By: #### H EMDF, BMP3, LFT3, LIPA4, TROPN #### [address] MCH (RBC) [Entitic mass] 33.0 pg Normal 26.0-34.0 [facility] Comment on above: Performed By: #### H EMDF, BMP3, LFT3, LIPA4, TROPN #### [address] MCHC (RBC) [Mass/Vol] 34.2 % Normal 32.0-36.0 [facility] Comment on above: Performed By: #### H EMDF, BMP3, LFT3, LIPA4, TROPN #### [address] MCV (RBC) [Entitic vol] 96.5 fL Normal 79.0-98.0 [facility] Comment on above: Performed By: #### H EMDF, BMP3, LFT3, LIPA4, TROPN #### [address] Monocytes (Bld) [#/Vol] 0.4 10*3/uL Normal 0.0-0.8 [facility] Comment on above: Performed By: #### H EMDF, BMP3, LFT3, LIPA4, TROPN #### [address] Monocytes/100 WBC (Bld) 6.5 % Normal 2.0-10.0 [facility] Comment on above: Performed By: #### H EMDF, BMP3, LFT3, LIPA4, TROPN #### [address] Platelet mean volume (Bld) [Entitic vol] 10.3 fL Normal 7.4-10.4 [facility] Comment on above: Performed By: #### H EMDF, BMP3, LFT3, LIPA4, TROPN #### [address] Platelets (Bld) [#/Vol] 163 10*3/uL Normal 140-440 [facility] Comment on above: Performed By: #### H EMDF, BMP3, LFT3, LIPA4, TROPN #### [address] RBC (Bld) [#/Vol] 3.37 10*6/uL Low 3.80-5.20 [facility] Comment on above: Performed By: #### H EMDF, BMP3, LFT3, LIPA4, TROPN #### [address] WBC (Bld) [#/Vol] 5.5 10*3/uL Normal 3.6-10.7 [facility] Comment on above: Performed By: #### H EMDF, BMP3, LFT3, LIPA4, TROPN #### [address] Lipaseon 02-12-2019 Lipase [Catalytic activity/Vol] 173 U/L Normal 23-300 [facility] Comment on above: Performed By: #### H EMDF, BMP3, LFT3, LIPA4, TROPN #### [address] LipaseOrdered By: Sonny montenegro on 02-12-2019 Lipase [Catalytic activity/Vol] 173 U/L 23 - 300 U/L [facility] Work Phone: No Panel InformationOrdered By: Sonny Peres on 02-12-2019 Test Performed by [facility], [address] [place] [id number] [place] [address] Work Phone: Prothrombin Timeon 0 INR Coag (PPP) [Relative time] 1.1 Normal 0.9-1.1 [facility] Comment on above: Result Comment: Kervin [...] H EMDF, BMP3, LFT3, LIPA4, TROPN #### [facility] [address] [place] [address] PT Coag (PPP) [Time] 11.1 s Normal 9.0-12.0 [facility] Comment on above: Result Comment: . Performed By: #### H EMDF, BMP3, LFT3, LIPA4, TROPN #### [facility] [address] [place] [address] Protime-INROrdered By: Nanette Peres on 02-12-2019 INR Coag (PPP) [Relative time] 1.1 {INR} [facility] Work Phone: Comment on above: Recommended Anticoag [...] [Time] 11.1 s 9 - 12 s [facility] Work Phone: Comment on above: . Test Performed by [facility], [address] [place] [id number] [facility] Work Phone: Add On Lab TestOrdered By: Juana Lowery on 02-11-2019 Add On Rejected [facility] Work Phone: Comment on above: No specimen availabl e for addon. Test Performed by [facility], [address] [place] [id number] [employer] Work Phone: Add On Lab TestOrdered By: Dasha Montague on 02-11-2019 Add On Accepted [facility] Work Phone: Comment on above: Specimen available & acceptable for analysis. Test Performed by [facility] [email or web address], [address] [place] [id number] [employer] Work Phone: Add on test from HISon 02-11 Add on test from HIS Accepted Normal [facility] Comment on above: Result Comment: Spec imen available & acceptable for analysis. Performed By: #### A DDON #### [address] [address] [address] [place], [place] Add on test from HIS Rejected Normal [facility] Comment on above: Result Comment: No s pecimen available for addon. Performed By: #### A DDON #### [address] [address] [address] [place], [place] Basic Metabolic Panelon Anion gap [Moles/Vol] 5 Normal [facility] Comment on above: Performed By: #### H EMDF, BMP3, LFT3, LIPA4, TROPN #### [address] [address] [address] [place], [place] Calcium [Mass/Vol] 8.9 mg/dL Normal 8.4-10.4 [facility] Comment on above: Performed By: #### H EMDF, BMP3, LFT3, LIPA4, TROPN #### [address] [address] [address] [place], [place] CO2 [Moles/Vol] 27 mmol/L Normal 22-30 [facility] Comment on above: Performed By: #### H EMDF, BMP3, LFT3, LIPA4, TROPN #### [address] [address] [address] [place], [place] Creatinine [Mass/Vol] 0.72 mg/dL Normal 0.52-1.25 [facility] Comment on above: Performed By: #### H EMDF, BMP3, LFT3, LIPA4, TROPN #### [address] [address] [address] [place], [place] GFR/1.73 sq M predicted among blacks MDRD (S/P/Bld) [Vol rate/Area] mL/min/{1.73_m2} Normal >60 [facility] Comment on above: Performed By: #### H EMDF, BMP3, LFT3, LIPA4, TROPN #### [address] [address] [place] [address] GFR/1.73 sq M predicted among non-blacks MDRD (S/P/Bld) [Vol rate/Area] mL/min/{1.73_m2} Normal >60 [facility] Comment on above: Result Comment: Sour ce- MDRD equation with creatinine calibration to IDMS(NKDEP) eGFR not recommended for drug dose adjustment Performed By: #### H EMDF, BMP3, LFT3, LIPA4, TROPN #### [address] [address] [place], [place] Glucose [Mass/Vol] 120 mg/dL High 70-100 [facility] Comment on above: Performed By: #### H EMDF, BMP3, LFT3, LIPA4, TROPN #### [address] Urea nitrogen [Mass/Vol] 15 mg/dL Normal 7-20 [facility] Comment on above: Performed By: #### H EMDF, BMP3, LFT3, LIPA4, TROPN #### [address] [address] [place], [place] Potassium [Moles/Vol] 3.7 mmol/L Normal 3.5-5.1 [facility] Comment on above: Performed By: #### H EMDF, BMP3, LFT3, LIPA4, TROPN #### [address] Sodium [Moles/Vol] 142 mmol/L Normal 135-145 [facility] Comment on above: Performed By: #### H EMDF, BMP3, LFT3, LIPA4, TROPN #### [address] Chloride [Moles/Vol] 111 mmol/L High 98-107 [facility] Comment on above: Performed By: #### H EMDF, BMP3, LFT3, LIPA4, TROPN #### [address] Basic Metabolic PanelOrdered By: Osmar Ribeiro on 02-11-2019 Anion gap [Moles/Vol] 5 mmol/L [facility] Work Phone: Calcium [Mass/Vol] 8.9 mg/dL 8.4 - 10. 4 mg/dL [facility] Work Phone: [phone] Chloride [Moles/Vol] 111 mmol/L High 98 - 10 7 mmol/L [facility] Work Phone: [phone] CO2 [Moles/Vol] 27 mmol/L 22 - 30 mmol/L [facility] Work Phone: [phone] Creatinine [Mass/Vol] 0.72 mg/dL 0.52 - 1.25 mg/dL [facility] Work Phone: [phone] EGFR IF NonAfrican Bruneian >60.0 >60 mL/min [facility] Work Phone: [phone] Comment on above: Source- MDRD equatio n with creatinine calibration to IDMS(NKDEP) eGFR not recommended for drug dose adjustment GFR/1.73 sq M.predicted among blacks MDRD (S/P/Bld) [Vol rate/Area] mL/min/{1.73_m2} >60 mL/min [facility] Work Phone: [phone] Glucose [Mass/Vol] 120 mg/dL High 70 - 100 mg/dL [facility] Work Phone: [phone] Potassium [Moles/Vol] 3.7 mmol/L 3.5 - 5.1 mmol/L [facility] Work Phone: [phone] Sodium [Moles/Vol] 142 mmol/L 135 - 145 mmol/L [facility] Work Phone: [phone] Urea nitrogen [Mass/Vol] 15 mg/dL 7 - 20 mg/dL [facility] Work Phone: [phone] CBC Auto DifferentialOrdered By: Osmar Ribeiro on 02-11-2019 Absolute Baso # 0.0 10*3/uL 0 - 0.2 10*3/uL [facility] Work Phone: [phone] Absolute Neut # 7.8 10*3/uL High 1.8 - 7 10*3/uL [facility] Work Phone: [phone] Basophils/100 WBC (Bld) 0.3 % 0 - 2 % [facility] Work Phone: [phone] Eosinophils (Bld) [#/Vol] 0.0 10*3/uL 0 - 0.5 10*3/uL [employer] Work Phone: [phone] Eosinophils/100 WBC (Bld) 0.4 % Low 1 - 6 % [employer] Work Phone: [phone] Erythrocyte distribution width (RBC) [Ratio] 12.4 % 11.5 - 14.5 % [employer] Work Phone: [phone] Granulocytes/100 WBC (Bld) 78.7 % 40 - 80 % [facility] Work Phone: [phone] Hematocrit (Bld) [Volume fraction] 34.8 % Low 35 - 47 % [employer] Work Phone: [phone] Hemoglobin (Bld) [Mass/Vol] 11.8 g/dL 11.7 - 16 g/dL [employer] Work Phone: [phone] Interpretation and review of laboratory results Abnormal [employer] Work Phone: [phone] Lymphocytes (Bld) [#/Vol] 1.4 10*3/uL 1 - 4.3 10*3/uL [employer] Work Phone: [phone] Lymphocytes/100 WBC (Bld) 14.5 % Low 20 - 40 % [employer] Work Phone: [phone] MCH (RBC) [Entitic mass] 32.7 pg 26 - 34 pg [employer] Work Phone: [phone] MCHC 33.9 % 32 - 36 % [employer] Work Phone: [phone] MCV (RBC) [Entitic vol] 96.7 fL 79 - 98 fL [employer] Work Phone: [phone] Monocytes (Bld) [#/Vol] 0.6 10*3/uL 0 - 0.8 10*3/uL [employer] Work Phone: [phone] Monocytes/100 WBC (Bld) 6.1 % 2 - 10 % [employer] Work Phone: [phone] Platelet mean volume (Bld) [Entitic vol] 10.0 fL 7.4 - 10.4 fL [employer] Work Phone: [phone] Platelets (Bld) [#/Vol] 193 10*3/uL 140 - 440 10*3/uL [employer] Work Phone: [phone] RBC (Bld) [#/Vol] 3.60 10*6/uL Low 3.8 - 5.2 10*6/uL [facility] Work Phone: WBC (Bld) [#/Vol] 9.9 10*3/uL 3.6 - 10.7 10*3/uL [facility] Work Phone: [phone] Test Performed by [facility], [address] [place] [id number] [place] [address] Work Phone: [phone] EKG 12 Lead - Chest PainOrde red By: Osmar Ribeiro on 02-11-2019 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 Test Date: 2019-02-11 Pat Name: Ricardo Villalpando Department: [facility] Room: [facility] Gender: F Inspector Technician: HAKEEM : 1940 Requested By: OSMAR RIBEIRO Order Number: [id number] Reading MD: Zack Lopez Measurements Intervals [place] Rate: 69 P: TN: QRS: -12 QRSD: 85 T: -16 QT: 413 QTc: 443 Interpretive Statements Atrial fibrillation Low voltage, extremity and precordial leads Electronically Signed On 02-11-2019 22:54:26 EST by Zack Lopez [facility] Work Phone: HEPATIC FUNCTION PANELOrdere d By: Osmar Ribeiro on 02-11-2019 Albumin [Mass/Vol] 3.3 g/dL Low 3.5 - 5 g/dL [facility] Work Phone: ALP [Catalytic activity/Vol] 83 U/L 38 - 126 U/L [facility] Work Phone: [phone] ALT [Catalytic activity/Vol] 64 U/L 13 - 69 U/L [facility] Work Phone: [phone] AST [Catalytic activity/Vol] 76 U/L High 15 - 46 U/L [facility] Work Phone: [phone] Bilirubin [Mass/Vol] 0.5 mg/dL 0.2 - 1 .3 mg/dL [facility] Work Phone: [phone] Bilirubin.indirect [Mass/Vol] 0.0 mg/dL 0 - 0.3 mg/dL [facility] Work Phone: Protein [Mass/Vol] 6.2 g/dL Low 6.3 - 8.2 g/dL [facility] Work Phone: Hemogram w/ Autodiffon 02-11 Abs Baso Cnt 0.0 10*3/uL Normal 0.0-0.2 [facility] Comment on above: Performed By: #### H EMDF, BMP3, LFT3, LIPA4, TROPN #### [address] [address] Abs Neutrophile Cnt 7.8 10*3/uL High 1.8-7.0 [facility] Comment on above: Performed By: #### H EMDF, BMP3, LFT3, LIPA4, TROPN #### [address] [address] [place] [address] Basophils/100 WBC (Bld) 0.3 % Normal 0.0-2.0 [facility] Comment on above: Performed By: #### H EMDF, BMP3, LFT3, LIPA4, TROPN #### [address] Eosinophils (Bld) [#/Vol] 0.0 10*3/uL Normal 0.0-0.5 [facility] Comment on above: Performed By: #### H EMDF, BMP3, LFT3, LIPA4, TROPN #### [address] Eosinophils/100 WBC (Bld) 0.4 % Low 1.0-6.0 [facility] Comment on above: Performed By: #### H EMDF, BMP3, LFT3, LIPA4, TROPN #### [address] [address] [address] [place], [place] Erythrocyte distribution width (RBC) [Ratio] 12.4 % Normal 11.5-14.5 [facility] Comment on above: Performed By: #### H EMDF, BMP3, LFT3, LIPA4, TROPN #### [address] [address] [address] [place], [place] Granulocytes/100 WBC (Bld) 78.7 % Normal 40.0-80.0 [facility] Comment on above: Performed By: #### H EMDF, BMP3, LFT3, LIPA4, TROPN #### [address] [address] [address] [place], [place] Hematocrit (Bld) [Volume fraction] 34.8 % Low 35.0-47.0 [facility] Comment on above: Performed By: #### H EMDF, BMP3, LFT3, LIPA4, TROPN #### [address] [address] [address] [place], [place] Hemoglobin (Bld) [Mass/Vol] 11.8 g/dL Normal 11.7-16.0 [facility] Comment on above: Performed By: #### H EMDF, BMP3, LFT3, LIPA4, TROPN #### [address] [address] [address] [place], [place] Lymphocytes (Bld) [#/Vol] 1.4 10*3/uL Normal 1.0-4.3 [facility] Comment on above: Performed By: #### H EMDF, BMP3, LFT3, LIPA4, TROPN #### [address] [address] [place], [place] Lymphocytes/100 WBC (Bld) 14.5 % Low 20.0-40.0 [facility] Comment on above: Performed By: #### H EMDF, BMP3, LFT3, LIPA4, TROPN #### [address] [address] [address] [place], [place] MCH (RBC) [Entitic mass] 32.7 pg Normal 26.0-34.0 [facility] Comment on above: Performed By: #### H EMDF, BMP3, LFT3, LIPA4, TROPN #### [address] MCHC (RBC) [Mass/Vol] 33.9 % Normal 32.0-36.0 [facility] Comment on above: Performed By: #### H EMDF, BMP3, LFT3, LIPA4, TROPN #### [address] MCV (RBC) [Entitic vol] 96.7 fL Normal 79.0-98.0 [facility] Comment on above: Performed By: #### H EMDF, BMP3, LFT3, LIPA4, TROPN #### [address] Monocytes (Bld) [#/Vol] 0.6 10*3/uL Normal 0.0-0.8 [facility] Comment on above: Performed By: #### H EMDF, BMP3, LFT3, LIPA4, TROPN #### [address] Monocytes/100 WBC (Bld) 6.1 % Normal 2.0-10.0 [facility] Comment on above: Performed By: #### H EMDF, BMP3, LFT3, LIPA4, TROPN #### [address] Platelet mean volume (Bld) [Entitic vol] 10.0 fL Normal 7.4-10.4 [facility] Comment on above: Performed By: #### H EMDF, BMP3, LFT3, LIPA4, TROPN #### [address] Platelets (Bld) [#/Vol] 193 10*3/uL Normal 140-440 [facility] Comment on above: Performed By: #### H EMDF, BMP3, LFT3, LIPA4, TROPN #### [address] [address] [address] [place], [place] RBC (Bld) [#/Vol] 3.60 10*6/uL Low 3.80-5.20 [facility] Comment on above: Performed By: #### H EMDF, BMP3, LFT3, LIPA4, TROPN #### [address] [address] [address] [place], [place] WBC (Bld) [#/Vol] 9.9 10*3/uL Normal 3.6-10.7 [facility] Comment on above: Performed By: #### H EMDF, BMP3, LFT3, LIPA4, TROPN #### [address] [address] [address] [place], [place] Hepatic Functionon 0 ALP [Catalytic activity/Vol] 83 U/L Normal 38-126 [facility] Comment on above: Performed By: #### H EMDF, BMP3, LFT3, LIPA4, TROPN #### [address] [address] [address] [place], [place] ALT [Catalytic activity/Vol] 64 U/L Normal 13-69 [facility] Comment on above: Performed By: #### H EMDF, BMP3, LFT3, LIPA4, TROPN #### [address] [place] [address] [place], [place] AST [Catalytic activity/Vol] 76 U/L High 15-46 [facility] Comment on above: Performed By: #### H EMDF, BMP3, LFT3, LIPA4, TROPN #### [address] [address] [address] [place], [place] Bilirubin [Mass/Vol] 0.5 mg/dL Normal 0.2-1.3 [facility] Comment on above: Performed By: #### H EMDF, BMP3, LFT3, LIPA4, TROPN #### [address] [place] [address] [place], [place] Bilirubin.direct [Mass/Vol] 0.0 mg/dL Normal 0.0-0.3 [facility] Comment on above: Performed By: #### H EMDF, BMP3, LFT3, LIPA4, TROPN #### [facility] [address] [place] [address] Protein [Mass/Vol] 6.2 g/dL Low 6.3-8.2 [facility] Comment on above: Performed By: #### H EMDF, BMP3, LFT3, LIPA4, TROPN #### [facility] [address] [place] [address] Albumin [Mass/Vol] 3.3 g/dL Low 3.5-5.0 [facility] Comment on above: Performed By: #### H EMDF, BMP3, LFT3, LIPA4, TROPN #### [facility] [address] [place] [address] Lipaseon 02-11-2019 Lipase [Catalytic activity/Vol] 164 U/L Normal 23-300 [facility] Comment on above: Performed By: #### H EMDF, BMP3, LFT3, LIPA4, TROPN #### [facility] [address] [place] [address] LipaseOrdered By: Osmar Craft son on 02-11-2019 Lipase [Catalytic activity/Vol] 164 U/L 23 - 300 U/L [facility] Work Phone: MRI ABDOMEN WO CONTRASTOrder ed By: Gem Lowery on 02-11-2019 Patient Name: RICARDO VILLALPANDO ---MRI--- Exam Date/Time 02/11/2019 13:41:50 EST Exam MRI Abdomen w/o Contrast Ordering Physician DO LOWERY ELISABETH Accession Number [id number] CPT4 Codes 76852 () Reason For Exam evaluate for choledocholithiasis [...] [facility] Incoming Radiology Results From [facility] - 02/11/2019 2:56 PM EST Patient Name: RICARDO VILLALPANDO ---MRI--- Exam Date/Time 02/11/2019 13:41:50 EST Exam MRI Abdomen w/o Contrast Ordering Physician DO LOWERY ELISABETH Accession Number [id number] CPT4 Codes 93821 () Reason For Exam evaluate for choledocholithiasis [...] Ordering Physician DO LOWERY ELISABETH Accession Number [id number] CPT4 Codes 92645 () Reason For Exam evaluate for choledocholithiasis [...] Transcribed Date and Time: 02/11/2019 2:42 Normal [facility] [email or web address] No Panel InformationOrdered By: Osmar Ribeiro on 02-11-2019 Interpretation and review of laboratory results Abnormal [facility] Work Phone: Test Performed by [employer], [place] [address] [employer] Work Phone: PROTIME/INR & PTTOrdered By: eGm Lowery on 02-11-2019 aPTT Coag (Bld) [Time] 27 s 20 - 30.5 s S [facility] Work Phone: Comment on above: NOTE: The therapeuti c time for Heparin anticoagulation, based on Xa activity inhibition, is an APTT of 46-80 seconds. INR Coag (PPP) [Relative time] 1.0 {INR} [employer] Work Phone: Comment on above: Recommended Anticoag [...] [Time] 11 s 9 - 12 s [facility] Work Phone: Comment on above: . Test Performed by [employer], [place] [address] [facility] Work Phone: Protime AND APTTon 0 INR Coag (PPP) [Relative time] 1.0 Normal 0.9-1.1 [facility] [email or web address] Comment on above: Result Comment: Kervin mmended [...] Infarction Performed By: #### P T/AP #### [address] PT Coag (PPP) [Time] 11.0 s Normal 9.0-12.0 [facility] Comment on above: Result Comment: . Performed By: #### P T/AP #### [address] aPTT Coag (Bld) [Time] 27.0 s Normal 20.0-30.5 [facility] Comment on above: Result Comment: NOTE : The therapeutic time for Heparin anticoagulation, based on Xa activity inhibition, is an APTT of 46-80 seconds. Performed By: #### P T/AP #### [address] TroponinOrdered By: Jf on 02-11-2019 Troponin I.cardiac [Mass/Vol] ng/mL 0 - 0.034 ng/mL [facility] Work Phone: Comment on above: . Test Performed by [facility], [address] [place] [address] [facility] Work Phone: Troponin Ion 02-11-2019 Troponin I.cardiac [Mass/Vol] ng/mL Normal 0.000-0.034 [facility] Comment on above: Result Comment: . Performed By: #### H EMDF, BMP3, LFT3, LIPA4, TROPN #### [address] US ABDOMEN LIMITED Specify o rgan? GALLBLADDER, PANCREAS, LIVEROrdered By: Reina Andino on 02-11-2019 Patient Name: RICARDO VILLALPANDO ---Ultrasound--- Exam Date/Time 02/11/2019 08:31:45 EST Exam US Abdomen Limited Ordering Physician Rita ANDINO SHELLY D Accession Number [id number] CPT4 Codes 62997 () Reason For Exam RUQ pain Report [...] and Time: 02/11/2019 9:06 [facility] Work Phone: [facility] Incoming Radiology Results From [facility] - 02/11/2019 9:11 AM EST Patient Name: RICARDO VILLALPANDO ---Ultrasound--- Exam Date/Time 02/11/2019 08:31:45 EST Exam US Abdomen Limited Ordering Physician Rita ANDINO SHELLY D Accession Number [id number] CPT4 Codes 69328 () Reason For Exam RUQ pain Report [...] Physician Rita ANDINO SHELLY D Accession Number [id number] CPT4 Codes 63902 () Reason For Exam RUQ pain Report [...] Dictated: 02/11/2019 9:06 am Dictating Physician: MD OMA, AMAYA Jean-Baptiste Signed Date and Time: 02/11/2019 9:09 am Signed by: MD ERNANDEZ LAUREN B Transcribed Date and Time: 02/11/2019 9:06 Normal [facility] Comprehensive Metabolic Pane keely 09-21-2018 Albumin [Mass/Vol] 3.5 g/dL 3.5 - 5 g/dL [place], [place] ALP [Catalytic activity/Vol] 117 U/L 38 - 126 U/L [place] ALT [Catalytic activity/Vol] 47 U/L 13 - 69 U/L [place] Anion gap [Moles/Vol] 5 mmol/L [place] AST [Catalytic activity/Vol] 137 U/L High 15 - 46 U/L [place] Bilirubin Ql (U) 0.7 mg/dL 0.2 - 1.3 mg/dL [place] Calcium [Mass/Vol] 9.4 mg/dL 8.4 - 10. 4 mg/dL [place] Chloride [Moles/Vol] 102 mmol/L 98 - 10 7 mmol/L [place] CO2 [Moles/Vol] 28 mmol/L 22 - 30 mmol/L [place] Creatinine [Mass/Vol] 0.61 mg/dL 0.52 - 1.25 mg/dL [place] EGFR IF NonAfrican [place] >60.0 >60 mL/min [place] Comment on above: Source- MDRD equatio n with creatinine calibration to IDMS(NKDEP) eGFR not recommended for drug dose adjustment GFR/1.73 sq M predicted among blacks MDRD (S/P/Bld) [Vol rate/Area] mL/min/{1.73_m2} >60 mL/min [place] Glucose [Mass/Vol] 135 mg/dL High 70 - 100 mg/dL [place] Interpretation and review of laboratory results Abnormal [place] Potassium [Moles/Vol] 3.4 mmol/L Low 3.5 - 5.1 mmol/L [place] Protein [Mass/Vol] 6.6 g/dL 6.3 - 8.2 g/dL [place] Sodium [Moles/Vol] 134 mmol/L Low 135 - 145 mmol/L [place] Urea nitrogen [Mass/Vol] 5 mg/dL Low 7 - 20 mg/dL [place] Test Performed by [facility], [address], [place], [place] [address] [place] CBC Auto Differentialon 09-08 Absolute Baso # 0.1 10*3/uL 0 - 0.2 10*3/uL [place] Absolute Neut # 5.1 10*3/uL 1.8 - 7 10*3/uL [place] Basophils/100 WBC (Bld) 0.8 % 0 - 2 % [place] Eosinophils (Bld) [#/Vol] 0.2 10*3/uL 0 - 0.5 10*3/uL [place] Eosinophils/100 WBC (Bld) 3.4 % 1 - 6 % [place] Erythrocyte distribution width (RBC) [Ratio] 17.3 % High 11.5 - 14.5 % [place] Granulocytes/100 WBC (Bld) 68.2 % 40 - 80 % [place] Hematocrit (Bld) [Volume fraction] 35.1 % 35 - 47 % [place] Hemoglobin (Bld) [Mass/Vol] 11.4 g/dL Low 11.7 - 16 g/dL [place] Interpretation and review of laboratory results Abnormal [place] Lymphocytes (Bld) [#/Vol] 1.5 10*3/uL 1 - 4.3 10*3/uL [place] Lymphocytes/100 WBC (Bld) 20.2 % 20 - 40 % [place] MCH (RBC) [Entitic mass] 29.0 pg 26 - 34 pg [place] MCHC (RBC) [Mass/Vol] 32.6 % 32 - 36 % [place] MCV (RBC) [Entitic vol] 88.9 fL 79 - 98 fL [place] Monocytes (Bld) [#/Vol] 0.5 10*3/uL 0 - 0.8 10*3/uL [place] Monocytes/100 WBC (Bld) 7.4 % 2 - 10 % [place] Platelet mean volume (Bld) [Entitic vol] 9.6 fL 7.4 - 10.4 fL [place] Platelets (Bld) [#/Vol] 232 10*3/uL 140 - 440 10*3/uL [place] RBC (Bld) [#/Vol] 3.95 10*6/uL 3.8 - 5.2 10*6/uL [place] WBC (Bld) [#/Vol] 7.4 10*3/uL 3.6 - 10.7 10*3/uL [place] Test Performed by [facility], [address], [place], [place] [id number] [place] [address] Comprehensive Metabolic Pane keely 09-20-2018 Albumin [Mass/Vol] 3.6 g/dL 3.5 - 5 g/dL [place] ALP [Catalytic activity/Vol] 141 U/L High 38 - 126 U/L [place] ALT [Catalytic activity/Vol] 56 U/L 13 - 69 U/L [place] Anion gap [Moles/Vol] 10 mmol/L [place] AST [Catalytic activity/Vol] 68 U/L High 15 - 46 U/L [place] Bilirubin Ql (U) 0.6 mg/dL 0.2 - 1.3 mg/dL [place] Calcium [Mass/Vol] 9.3 mg/dL 8.4 - 10. 4 mg/dL [place] Chloride [Moles/Vol] 104 mmol/L 98 - 10 7 mmol/L [place] CO2 [Moles/Vol] 25 mmol/L 22 - 30 mmol/L [place] Creatinine [Mass/Vol] 0.63 mg/dL 0.52 - 1.25 mg/dL [place] EGFR IF NonAfrican [place] >60.0 >60 mL/min [place] Comment on above: Source- MDRD equatio n with creatinine calibration to IDMS(NKDEP) eGFR not recommended for drug dose adjustment GFR/1.73 sq M predicted among blacks MDRD (S/P/Bld) [Vol rate/Area] mL/min/{1.73_m2} >60 mL/min [place] Glucose [Mass/Vol] 136 mg/dL High 70 - 100 mg/dL [place] Potassium [Moles/Vol] 3.7 mmol/L 3.5 - 5.1 mmol/L [place] Protein [Mass/Vol] 6.6 g/dL 6.3 - 8.2 g/dL [place] Sodium [Moles/Vol] 140 mmol/L 135 - 145 mmol/L [place] Urea nitrogen [Mass/Vol] 8 mg/dL 7 - 20 mg/dL [place] Lactate Dehydrogenaseon 09-08 LD 182 U/L High 50 - 170 U/L [place] Otheron 09-20-2018 Blood Culture, Routine No growth at 5 days. [place] Test Performed by [facility], [address] [place] [address] Specimen Source Comment:Blood [place] Interpretation and review of laboratory results Abnormal [place] Test Performed by [facility], [address], [place], [place] [address] [place] CBC Auto Differentialon 09-08 Absolute Baso # 0.1 10*3/uL 0 - 0.2 10*3/uL [place] Absolute Neut # 4.2 10*3/uL 1.8 - 7 10*3/uL [place] Basophils/100 WBC (Bld) 1.0 % 0 - 2 % [place] Eosinophils (Bld) [#/Vol] 0.2 10*3/uL 0 - 0.5 10*3/uL [place] Eosinophils/100 WBC (Bld) 4.0 % 1 - 6 % [place] Erythrocyte distribution width (RBC) [Ratio] 17.7 % High 11.5 - 14.5 % [place] Granulocytes/100 WBC (Bld) 68.4 % 40 - 80 % [place] Hematocrit (Bld) [Volume fraction] 32.0 % Low 35 - 47 % [place] Hemoglobin (Bld) [Mass/Vol] 10.6 g/dL Low 11.7 - 16 g/dL [place] Interpretation and review of laboratory results Abnormal [place] Lymphocytes (Bld) [#/Vol] 1.2 10*3/uL 1 - 4.3 10*3/uL [place] Lymphocytes/100 WBC (Bld) 19.7 % Low 20 - 40 % [place] MCH (RBC) [Entitic mass] 29.0 pg 26 - 34 pg [place] MCHC (RBC) [Mass/Vol] 33.2 % 32 - 36 % [place] MCV (RBC) [Entitic vol] 87.4 fL 79 - 98 fL [place] Monocytes (Bld) [#/Vol] 0.4 10*3/uL 0 - 0.8 10*3/uL [place] Monocytes/100 WBC (Bld) 6.9 % 2 - 10 % [place] Platelet mean volume (Bld) [Entitic vol] 9.4 fL 7.4 - 10.4 fL [place] Platelets (Bld) [#/Vol] 225 10*3/uL 140 - 440 10*3/uL [place] RBC (Bld) [#/Vol] 3.66 10*6/uL Low 3.8 - 5.2 10*6/uL [place] WBC (Bld) [#/Vol] 6.2 10*3/uL 3.6 - 10.7 10*3/uL [place] Test Performed by [facility], [address], [place], [place] [address] [place] Comprehensive Metabolic Pane keely 09-19-2018 Albumin [Mass/Vol] 3.3 g/dL Low 3.5 - 5 g/dL [place] ALP [Catalytic activity/Vol] 117 U/L 38 - 126 U/L [place] ALT [Catalytic activity/Vol] 78 U/L High 13 - 69 U/L [place] Anion gap [Moles/Vol] 5 mmol/L [place] AST [Catalytic activity/Vol] 52 U/L High 15 - 46 U/L [place] Bilirubin Ql (U) 0.8 mg/dL 0.2 - 1.3 mg/dL [place] Calcium [Mass/Vol] 9.0 mg/dL 8.4 - 10. 4 mg/dL [place] Chloride [Moles/Vol] 102 mmol/L 98 - 10 7 mmol/L [place] CO2 [Moles/Vol] 27 mmol/L 22 - 30 mmol/L [place] Creatinine [Mass/Vol] 0.66 mg/dL 0.52 - 1.25 mg/dL [place] EGFR IF NonAfrican [place] >60.0 >60 mL/min [place] Comment on above: Source- MDRD equatio n with creatinine calibration to IDMS(NKDEP) eGFR not recommended for drug dose adjustment GFR/1.73 sq M predicted among blacks MDRD (S/P/Bld) [Vol rate/Area] mL/min/{1.73_m2} >60 mL/min [place] Glucose [Mass/Vol] 125 mg/dL High 70 - 100 mg/dL [place] Interpretation and review of laboratory results Abnormal [place] Potassium [Moles/Vol] 3.8 mmol/L 3.5 - 5.1 mmol/L [place] Protein [Mass/Vol] 6.3 g/dL 6.3 - 8.2 g/dL [place] Sodium [Moles/Vol] 133 mmol/L Low 135 - 145 mmol/L [place] Urea nitrogen [Mass/Vol] 10 mg/dL 7 - 20 mg/dL [place] Lipaseon 09-19-2018 Lipase [Catalytic activity/Vol] 247 U/L 23 - 300 U/L [place] Otheron 09-19-2018 Test Performed by [facility], [address], [place], [place] [id number] [place] [address] US ABDOMEN LIMITEDon 019 Patient Name: RICARDO VILLALPANDO ---Ultrasound--- Exam Date/Time 09/19/2018 14:28:18 EDT Exam US Abdomen Limited Ordering Physician MD CHONG, SEEMA Wheeler Accession Number [id number] CPT4 Codes 10518 () Reason For Exam re-eval pancreas, rising [...] RUSSELL Transcribed Date and Time: 09/19/2018 3:29 [facility] [place], [place], [facility] Incoming Radiology Results From [facility] - 09/19/2018 3:29 PM EDT Patient Name: RICARDO VILLALPANDO ---Ultrasound--- Exam Date/Time 09/19/2018 14:28:18 EDT Exam US Abdomen Limited Ordering Physician MD CHONG, SEEMA Wheeler Accession Number [id number] CPT4 Codes 92962 () Reason For Exam re-eval pancreas, rising [...] RUSSELL Transcribed Date and Time: 09/19/2018 3:29 [place] CBC Auto Differentialon 09-08 Absolute Baso # 0.1 10*3/uL 0 - 0.2 10*3/uL [place] Absolute Neut # 6.1 10*3/uL 1.8 - 7 10*3/uL [place] Basophils/100 WBC (Bld) 0.9 % 0 - 2 % [place] Eosinophils (Bld) [#/Vol] 0.4 10*3/uL 0 - 0.5 10*3/uL [place] Eosinophils/100 WBC (Bld) 4.0 % 1 - 6 % [place] Erythrocyte distribution width (RBC) [Ratio] 18.1 % High 11.5 - 14.5 % [place] Granulocytes/100 WBC (Bld) 68.6 % 40 - 80 % [place] Hematocrit (Bld) [Volume fraction] 36.2 % 35 - 47 % [place] Hemoglobin (Bld) [Mass/Vol] 11.8 g/dL 11.7 - 16 g/dL [place] Lymphocytes (Bld) [#/Vol] 1.8 10*3/uL 1 - 4.3 10*3/uL [place] Lymphocytes/100 WBC (Bld) 19.9 % Low 20 - 40 % [place] MCH (RBC) [Entitic mass] 28.8 pg 26 - 34 pg [place] MCHC (RBC) [Mass/Vol] 32.7 % 32 - 36 % [place] MCV (RBC) [Entitic vol] 88.1 fL 79 - 98 fL [place] Monocytes (Bld) [#/Vol] 0.6 10*3/uL 0 - 0.8 10*3/uL [place] Monocytes/100 WBC (Bld) 6.6 % 2 - 10 % [place] Platelet mean volume (Bld) [Entitic vol] 9.3 fL 7.4 - 10.4 fL [place] Platelets (Bld) [#/Vol] 281 10*3/uL 140 - 440 10*3/uL [place] RBC (Bld) [#/Vol] 4.11 10*6/uL 3.8 - 5.2 10*6/uL [place] WBC (Bld) [#/Vol] 8.9 10*3/uL 3.6 - 10.7 10*3/uL [place] Comprehensive Metabolic Pane keely 09-18-2018 Albumin [Mass/Vol] 3.7 g/dL 3.5 - 5 g/dL [place] ALP [Catalytic activity/Vol] 165 U/L High 38 - 126 U/L [place] ALT [Catalytic activity/Vol] 93 U/L High 13 - 69 U/L [place] Anion gap [Moles/Vol] 5 mmol/L [place] AST [Catalytic activity/Vol] 69 U/L High 15 - 46 U/L [place] Bilirubin Ql (U) 0.8 mg/dL 0.2 - 1.3 mg/dL [place] Calcium [Mass/Vol] 9.4 mg/dL 8.4 - 10. 4 mg/dL [place] Chloride [Moles/Vol] 102 mmol/L 98 - 10 7 mmol/L [place] CO2 [Moles/Vol] 28 mmol/L 22 - 30 mmol/L [place] Creatinine [Mass/Vol] 0.7 mg/dL 0.52 - 1.25 mg/dL [place] EGFR IF NonAfrican [place] >60.0 >60 mL/min [place] Comment on above: Source- MDRD equatio n with creatinine calibration to IDMS(NKDEP) eGFR not recommended for drug dose adjustment GFR/1.73 sq M predicted among blacks MDRD (S/P/Bld) [Vol rate/Area] mL/min/{1.73_m2} >60 mL/min [place] Glucose [Mass/Vol] 133 mg/dL High 70 - 100 mg/dL [place] Potassium [Moles/Vol] 3.6 mmol/L 3.5 - 5.1 mmol/L [place] Protein [Mass/Vol] 7.0 g/dL 6.3 - 8.2 g/dL [place] Sodium [Moles/Vol] 136 mmol/L 135 - 145 mmol/L [place] Urea nitrogen [Mass/Vol] 10 mg/dL 7 - 20 mg/dL [place] Lipaseon 09-18-2018 Lipase [Catalytic activity/Vol] 513 U/L High 23 - 300 U/L [place] Otheron 09-18-2018 Interpretation and review of laboratory results Abnormal [place] Test Performed by [facility], [address] [place], [place] [id number] [place] [address] Comprehensive Metabolic Pane keely 09-17-2018 Albumin [Mass/Vol] 3.4 g/dL Low 3.5 - 5 g/dL [place] ALP [Catalytic activity/Vol] 146 U/L High 38 - 126 U/L [place] ALT [Catalytic activity/Vol] 109 U/L High 13 - 69 U/L [place] Anion gap [Moles/Vol] 7 mmol/L [place] AST [Catalytic activity/Vol] 76 U/L High 15 - 46 U/L [place] Bilirubin Ql (U) 0.6 mg/dL 0.2 - 1.3 mg/dL [place] Calcium [Mass/Vol] 9.0 mg/dL 8.4 - 10. 4 mg/dL [place] Chloride [Moles/Vol] 104 mmol/L 98 - 10 7 mmol/L [place] CO2 [Moles/Vol] 27 mmol/L 22 - 30 mmol/L [place] Creatinine [Mass/Vol] 0.66 mg/dL 0.52 - 1.25 mg/dL [place] EGFR IF NonAfrican [place] >60.0 >60 mL/min [place] Comment on above: Source- MDRD equatio n with creatinine calibration to IDMS(NKDEP) eGFR not recommended for drug dose adjustment GFR/1.73 sq M predicted among blacks MDRD (S/P/Bld) [Vol rate/Area] mL/min/{1.73_m2} >60 mL/min [place] Glucose [Mass/Vol] 141 mg/dL High 70 - 100 mg/dL [place] Potassium [Moles/Vol] 3.3 mmol/L Low 3.5 - 5.1 mmol/L [place] Protein [Mass/Vol] 6.4 g/dL 6.3 - 8.2 g/dL [place] Sodium [Moles/Vol] 139 mmol/L 135 - 145 mmol/L [place] Urea nitrogen [Mass/Vol] 8 mg/dL 7 - 20 mg/dL [place] Lipaseon 09-17-2018 Lipase [Catalytic activity/Vol] 351 U/L High 23 - 300 U/L [place] NM HEPATOBILIARY W/O CCKon 0 09-17-2018 Patient Name: RICARDO VILLALPANDO ---Nuc Med--- Exam Date/Time 09/17/2018 09:00:00 EDT Exam NM Hepatobiliary System Imaging Ordering Physician KIKO LAU MD Accession Number [id number] CPT4 Codes 29085 () Reason For Exam abd pain Report [...] J Transcribed Date and Time: 09/17/2018 10:54 [facility] [place] [facility] [facility] 09[facility]17/[facility] 10:55 AM EDT Patient Name: RICARDO VILLALPANDO ---Nuc Med--- Exam Date/Time 09/17/2018 09:00:00 EDT Exam NM Hepatobiliary System Imaging Ordering Physician KIKO LAU MD Accession Number [id number] CPT4 Codes 77007 () Reason For Exam abd pain Report [...] J Transcribed Date and Time: 09/17/2018 10:54 [facility] Otheron 09-17-2018 Interpretation and review of laboratory results Abnormal [place] Test Performed by [facility], [address] URINE CULTUREon 09-17-2018 Bacteria identified Cx Nom (U) Group B streptococcus Abnormal [place] Bacteria identified Cx Nom (U) 10,000-50,000 CFU/ml Susceptibility testing not routinely performed. Group B streptococcus is universally susceptible to beta-lactam antibiotics and vancomycin. If patient is beta-lactam allergic, please call [facility] Microbiology lab ([phone]) within 2 days to request susceptibility testing. If isolated from urine, Group B strep may indicate colonization or infection. [place] Bacteria identified Cx Nom (U) Normal urogenital nayeli present. Abnormal [place] Interpretation and review of laboratory results Abnormal [place] Test Performed by [facility], [address] [place] [address] Specimen Source Comment:Urine, clean catch [place] CBCon 09-16-2018 Erythrocyte distribution width (RBC) [Ratio] 17.5 % High 11.5 - 14.5 % [place] Hematocrit (Bld) [Volume fraction] 34.0 % Low 35 - 47 % [place] Hemoglobin (Bld) [Mass/Vol] 11.3 g/dL Low 11.7 - 16 g/dL [place] Interpretation and review of laboratory results Abnormal [place] MCH (RBC) [Entitic mass] 28.9 pg 26 - 34 pg [place] MCHC (RBC) [Mass/Vol] 33.2 % 32 - 36 % [place] MCV (RBC) [Entitic vol] 87.1 fL 79 - 98 fL [place] Platelet mean volume (Bld) [Entitic vol] 9.4 fL 7.4 - 10.4 fL [place] Platelets (Bld) [#/Vol] 247 10*3/uL 140 - 440 10*3/uL [place] RBC (Bld) [#/Vol] 3.91 10*6/uL 3.8 - 5.2 10*6/uL [place] WBC (Bld) [#/Vol] 8.1 10*3/uL 3.6 - 10.7 10*3/uL [place] Test Performed by [facility], [address], [place], [place] [address] [place] Comprehensive Metabolic Pane l w/ Reflex to MGon 09-16-2018 Albumin [Mass/Vol] 3.7 g/dL 3.5 - 5 g/dL [place] ALP [Catalytic activity/Vol] 145 U/L High 38 - 126 U/L [place] ALT [Catalytic activity/Vol] 145 U/L High 13 - 69 U/L [place] Anion gap [Moles/Vol] 7 mmol/L [place] AST [Catalytic activity/Vol] 133 U/L High 15 - 46 U/L [place] Bilirubin Ql (U) 0.9 mg/dL 0.2 - 1.3 mg/dL [place] Calcium [Mass/Vol] 9.1 mg/dL 8.4 - 10. 4 mg/dL [place] Chloride [Moles/Vol] 99 mmol/L 98 - 10 7 mmol/L [place] CO2 [Moles/Vol] 29 mmol/L 22 - 30 mmol/L [place] Creatinine [Mass/Vol] 0.75 mg/dL 0.52 - 1.25 mg/dL [place] EGFR IF NonAfrican [place] >60.0 >60 mL/min [place] Comment on above: Source- MDRD equatio n with creatinine calibration to IDMS(NKDEP) eGFR not recommended for drug dose adjustment GFR/1.73 sq M predicted among blacks MDRD (S/P/Bld) [Vol rate/Area] mL/min/{1.73_m2} >60 mL/min [place] Glucose [Mass/Vol] 131 mg/dL High 70 - 100 mg/dL [place] Interpretation and review of laboratory results Abnormal [place] Potassium [Moles/Vol] 3.2 mmol/L Low 3.5 - 5.1 mmol/L [place] Protein [Mass/Vol] 6.8 g/dL 6.3 - 8.2 g/dL [place] Sodium [Moles/Vol] 135 mmol/L 135 - 145 mmol/L [place] Urea nitrogen [Mass/Vol] 11 mg/dL 7 - 20 mg/dL [place] Test Performed by [facility], [address], [place], [place] [address] [place] MRI ABDOMEN WO CONTRASTon Patient Name: RICARDO VILLALPANDO ---MRI--- Exam Date/Time 09/16/2018 16:17:45 EDT Exam MRI Abdomen w/o Contrast Ordering Physician KIKO LAU MD Accession Number [id number] CPT4 Codes 47297 () Reason For Exam gallstones,abd pain Report [...] M Transcribed Date and Time: 09/16/2018 6:06 [facility] [place], [place], [place] Incoming Radiology Results From [facility] - 09/16/2018 6:06 PM EDT Patient Name: RICARDO VILLALPANDO ---MRI--- Exam Date/Time 09/16/2018 16:17:45 EDT Exam MRI Abdomen w/o Contrast Ordering Physician KIKO LAU MD Accession Number [id number] CPT4 Codes 58983 () Reason For Exam gallstones,abd pain Report [...] M Transcribed Date and Time: 09/16/2018 6:06 [facility] 09-16-2018 Magnesium [Mass/Vol] 1.7 mg/dL 1.6 - 2 .3 mg/dL [place], [place] Test Performed by [facility], [address], [place], [place] [address] [place], [place] Troponinon 09-16-2018 Troponin I.cardiac [Mass/Vol] ng/mL 0 - 0.034 ng/mL [place], [place] Comment on above: < 0.034 = negative 0.034 0.120 = indeterminate > 0.120 = positive Test Performed by [facility], [address], [place], [place] [address] [place], [place] CBC Auto Differentialon Absolute Baso # 0.1 10*3/uL 0 - 0.2 10*3/uL [place] Absolute Neut # 5.9 10*3/uL 1.8 - 7 10*3/uL [place] Basophils/100 WBC (Bld) 1.1 % 0 - 2 % [place] Eosinophils (Bld) [#/Vol] 0.3 10*3/uL 0 - 0.5 10*3/uL [place] Eosinophils/100 WBC (Bld) 3.2 % 1 - 6 % [place] Erythrocyte distribution width (RBC) [Ratio] 17.4 % High 11.5 - 14.5 % [place] Granulocytes/100 WBC (Bld) 67.0 % 40 - 80 % [place] Hematocrit (Bld) [Volume fraction] 36.5 % 35 - 47 % [place] Hemoglobin (Bld) [Mass/Vol] 12.0 g/dL 11.7 - 16 g/dL [place] Interpretation and review of laboratory results Abnormal [place] Lymphocytes (Bld) [#/Vol] 2.0 10*3/uL 1 - 4.3 10*3/uL [place] Lymphocytes/100 WBC (Bld) 22.6 % 20 - 40 % [place] MCH (RBC) [Entitic mass] 28.3 pg 26 - 34 pg [place] MCHC (RBC) [Mass/Vol] 32.9 % 32 - 36 % [place], [place] MCV (RBC) [Entitic vol] 85.8 fL 79 - 98 fL [place] Monocytes (Bld) [#/Vol] 0.5 10*3/uL 0 - 0.8 10*3/uL [place] Monocytes/100 WBC (Bld) 6.1 % 2 - 10 % [place] Platelet mean volume (Bld) [Entitic vol] 9.7 fL 7.4 - 10.4 fL [place] Platelets (Bld) [#/Vol] 275 10*3/uL 140 - 440 10*3/uL [place] RBC (Bld) [#/Vol] 4.25 10*6/uL 3.8 - 5.2 10*6/uL [place] WBC (Bld) [#/Vol] 8.8 10*3/uL 3.6 - 10.7 10*3/uL [place] Test Performed by [facility], [address], [place], [place] [address] [place] Comprehensive Metabolic Pane keely 09-15-2018 Albumin [Mass/Vol] 4.1 g/dL 3.5 - 5 g/dL [place], [place] ALP [Catalytic activity/Vol] 170 U/L High 38 - 126 U/L [place] ALT [Catalytic activity/Vol] 191 U/L High 13 - 69 U/L [place] Anion gap [Moles/Vol] 6 mmol/L [place], [place] AST [Catalytic activity/Vol] 216 U/L High 15 - 46 U/L [place] Bilirubin Ql (U) 0.9 mg/dL 0.2 - 1.3 mg/dL [place] Calcium [Mass/Vol] 9.2 mg/dL 8.4 - 10. 4 mg/dL [place] Chloride [Moles/Vol] 100 mmol/L 98 - 10 7 mmol/L [place] CO2 [Moles/Vol] 33 mmol/L High 22 - 30 mmol/L [place] Creatinine [Mass/Vol] 0.83 mg/dL 0.52 - 1.25 mg/dL [place] EGFR IF NonAfrican [place]ian >60.0 >60 mL/min [place] Comment on above: Source- MDRD equatio n with creatinine calibration to IDMS(NKDEP) eGFR not recommended for drug dose adjustment GFR/1.73 sq M predicted among blacks MDRD (S/P/Bld) [Vol rate/Area] mL/min/{1.73_m2} >60 mL/min [place] Glucose [Mass/Vol] 111 mg/dL High 70 - 100 mg/dL [place] Interpretation and review of laboratory results Abnormal [place] Potassium [Moles/Vol] 3.4 mmol/L Low 3.5 - 5.1 mmol/L [place] Protein [Mass/Vol] 7.5 g/dL 6.3 - 8.2 g/dL [place] Sodium [Moles/Vol] 139 mmol/L 135 - 145 mmol/L [place] Urea nitrogen [Mass/Vol] 13 mg/dL 7 - 20 mg/dL [place] Test Performed by [facility], [address] [place], [place] [address] [place] Hepatitis Panel, Acuteon HAV IgM IA Qn (S) NOT DETECTED Not-Detect ed [place], [place] Hep B Core Ab, IgM NOT DETECTED Not-Detec jae [place] Hepatitis B Surface Ag NOT DETECTED Not-D [place]ected [place] Hepatitis C Ab NOT DETECTED Not[place]Detected [place] Comment on above: Patients with DETECT ED Hepatitis C Ab results should have a new specimen submitted for supplemental testing with a Hepatitis C Quantitative RNA assay (viral load), if clinically indicated. Test Performed by [facility], [address] [place] [address] [place] HAV IgM IA Qn (S) NOT DETECTED Not-Detect ed [place] Hep B Core Ab, IgM NOT DETECTED Not-Detec jae NA [place] Hepatitis B Surface Ag NOT DETECTED Not-D etected NA [place] Hepatitis C Ab NOT DETECTED Not-Detected [place] Comment on above: Patients with DETECT ED Hepatitis C Ab results should have a new specimen submitted for supplemental testing with a Hepatitis C Quantitative RNA assay (viral load), if clinically indicated. Test Performed by [facility], [address] [place] [id number] [place] [address] PROCALCITONINon 09-15-2018 Procalcitonin <0.10 <0.10 ng/mL [place] Sodium [Moles/Vol] See Below [place] Comment on above: PCT <0.50 = Low risk of severe sepsis and/or septic shock. PCT >2.00 = High risk of severe sepsis and/or septic shock. Test Performed by [facility], [address] [place] [id number] [place] [address] Troponinon 09-15-2018 Troponin I.cardiac [Mass/Vol] 0.012 ng/mL 0 - 0.034 ng/mL [place] Comment on above: < 0.034 = negative 0.034 0.120 = indeterminate > 0.120 = positive Test Performed by [facility], [address] Troponin I.cardiac [Mass/Vol] ng/mL 0 - 0.034 ng/mL [place] Comment on above: < 0.034 = negative 0.034 0.120 = indeterminate > 0.120 = positive Test Performed by [facility], [address], [address] Troponin I.cardiac [Mass/Vol] ng/mL 0 - 0.034 ng/mL [place] Comment on above: < 0.034 = negative 0.034 0.120 = indeterminate > 0.120 = positive Test Performed by [facility], [address] US ABDOMEN LIMITEDon 019 Patient Name: RICARDO VILLALPANDO ---Ultrasound--- Exam Date/Time 09/15/2018 16:42:00 EDT Exam US Abdomen Limited Ordering Physician DO MORTON LISA Accession Number [id number] CPT4 Codes 14160 () Reason For Exam elevated liver function [...] RISA Transcribed Date and Time: 09/15/2018 6:24 [facility] [place] [place] [facility], [facility] Incoming Radiology Results From [facility] - 09/15/2018 6:24 PM EDT Patient Name: RICARDO VILLALPANDO ---Ultrasound--- Exam Date/Time 09/15/2018 16:42:00 EDT Exam US Abdomen Limited Ordering Physician DO MORTON LISA Accession Number [id number] CPT4 Codes 46196 () Reason For Exam elevated liver function [...] RISA Transcribed Date and Time: 09/15/2018 6:24 [place] Urinalysison 09-15-2018 Appearance (U) Clear [place] Comment on above: Reference Range: Jonathan ar Bilirubin Urine Negative mg/dL [place] Comment on above: Reference Range: Neg ative Color (U) Light-Yellow [place] Comment on above: Reference Range: Lt. Yellow Glucose, Ur Normal mg/dL [place] Comment on above: Reference Range: Nor mal (<70) Ketones Ql (U) Negative mg/dL [place] Comment on above: Reference Range: Neg ative LEUKOCYTES, UA Negative Xavier/uL [place] Comment on above: Reference Range: Neg ative Nitrite, Urine Negative [place] Comment on above: Reference Range: Neg ative Occult Blood,Urine Negative mg/dL [place] Comment on above: Reference Range: Neg ative pH (U) 6.5 [pH] [place] Protein (U) [Mass/Vol] Negative mg/dL [place] Comment on above: Reference Range: Neg ative Specific [place], Urine 1.006 [place] Urobilinogen, Urine Normal mg/dL [place] Comment on above: Reference Range: Nor mal (0-1) Test Performed by [facility], [address] [place], [place], [place] [address] [place] XR CHEST STANDARD (2 VW)on 0 09-15-2018 [facility] Incoming Radiology Results From [facility] - 09/15/2018 5:37 PM EDT Patient Name: RICARDO VILLALPANDO ---Diagnostic Radiology--- Exam Date/Time 09/15/2018 15:22:39 EDT Exam CR Chest PA/LAT Ordering Physician DO MORTON LISA Accession Number [id number] CPT4 Codes 76390 () Reason For Exam elevated wbc Report [...] RISA Transcribed Date and Time: 09/15/2018 5:37 [place] Patient Name: RICARDO VILLALPANDO ---Diagnostic Radiology--- Exam Date/Time 09/15/2018 15:22:39 EDT Exam CR Chest PA/LAT Ordering Physician DO MORTON LISA Accession Number [id number] CPT4 Codes 01808 () Reason For Exam elevated wbc Report [...] RISA Transcribed Date and Time: 09/15/2018 5:37 [place] Vital Signs Date Time Vital Sign Value Performing Clinician Facility 10-05-2024 09:30-0400 Body temperature 97.2 [degF] Dr. Alisson Morton DO Work Phone: [facility] 10-05-2024 09:30-0400 Diastolic blood pressure 65 mm[Hg] Dr. Alisson Morton DO Work Phone: [facility] 10-05-2024 09:30-0400 Heart rate 74 /min Dr. Alisson Morton DO Work Phone: [facility] 10-05-2024 09:30-0400 Respiratory rate 18 /min Dr. Alisson Morton DO Work Phone: [facility] 10-05-2024 09:30-0400 SaO2% (BldA) [Mass fraction] 97 % Dr. Alisson Morton DO Work Phone: [facility] 10-05-2024 09:30-0400 Systolic blood pressure 151 mm[Hg] Dr. Alisson Morton DO Work Phone: [facility] 10-05-2024 08:07-0400 Body height 152.[address] Alisson Morton DO Work Phone: [facility] 10-05-2024 08:07-0400 Body mass index (BMI) [Ratio] 18.1 kg/m2 Dr. Alisson Morton DO Work Phone: [facility] 10-05-2024 08:07-0400 Body weight [address] Alisson Morton DO Work Phone: [facility] 08-27-2024 10:39-0400 Body height 149.[address] Alisson Morton DO Work Phone: [facility] 08-18-2024 14:34-0400 Body height 152.4 cm Toni Bey MD Work Phone: [facility] 08-18-2024 14:34-0400 Body mass index (BMI) [Ratio] 20.51 kg/m2 Toni Bey MD Work Phone: [facility] 08-18-2024 14:34-0400 Body weight 47.63 kg Toni Bey MD Work Phone: [facility] 08-18-2024 14:34-0400 Diastolic blood pressure 78 mm[Hg] Toni Bey MD Work Phone: [facility] 08-18-2024 14:34-0400 Heart rate 87 /min Toni Bey MD Work Phone: [facility] 08-18-2024 14:34-0400 SaO2% (BldA) [Mass fraction] 97 % Toni Bey MD Work Phone: [facility] 08-18-2024 14:34-0400 Systolic blood pressure 128 mm[Hg] Toni Bey MD Work Phone: [facility] 08-18-2023 11:05-0400 Body height 152.4 cm Toni Bey MD Work Phone: [facility] 08-18-2023 11:05-0400 Body mass index (BMI) [Ratio] 20.15 kg/m2 Toni Bey MD Work Phone: [facility] 08-18-2023 11:05-0400 Body weight 46.81 kg Toni Bey MD Work Phone: [facility] 08-18-2023 11:05-0400 Diastolic blood pressure 56 mm[Hg] Toni Bey MD Work Phone: [facility] 08-18-2023 11:05-0400 Heart rate 62 /min Toni Bey MD Work Phone: [facility] 08-18-2023 11:05-0400 Respiratory rate 16 /min Toni Bey MD Work Phone: [facility] 08-18-2023 11:05-0400 SaO2% (BldA) [Mass fraction] 97 % Toni Bey MD Work Phone: [facility] 08-18-2023 11:05-0400 Systolic blood pressure 106 mm[Hg] Toni Bey MD Work Phone: [facility] 04-04-2023 11:16-0500 Body temperature 97.1 [degF] Dr. Alisson Morton Work Phone: [facility] 04-04-2023 11:16-0500 Diastolic blood pressure 56 mm[Hg] Dr. Alisson Morton Work Phone: [facility] 04-04-2023 11:16-0500 Heart rate 68 /min Dr. Alisson Morton Work Phone: [facility] 04-04-2023 11:16-0500 Respiratory rate 16 /min Dr. Alisson Morton Work Phone: [facility] 04-04-2023 11:16-0500 SaO2% (BldA) [Mass fraction] 98 % Dr. Alisson Morton Work Phone: [facility] 04-04-2023 11:16-0500 Systolic blood pressure 134 mm[Hg] Dr. Alisson Morton Work Phone: [facility] 04-04-2023 10:15-0500 Body height 152.[address] Alisson Morton Work Phone: [facility] 04-04-2023 10:15-0500 Body mass index (BMI) [Ratio] 20.3 kg/m2 Dr. Alisson Morton Work Phone: [facility] 04-04-2023 10:15-0500 Body weight 47.[address] Alisson Morton Work Phone: [facility] 01-04-2023 12:48-0500 Body temperature 98.4 [degF] Dr. Alisson Morton Work Phone: [facility] 01-04-2023 12:48-0500 Diastolic blood pressure 55 mm[Hg] Dr. Alisson Morton Work Phone: [facility] 01-04-2023 12:48-0500 Heart rate 81 /min Dr. Alisson Morton Work Phone: [facility] 01-04-2023 12:48-0500 Respiratory rate 16 /min Dr. Alisson Morton Work Phone: [facility] 01-04-2023 12:48-0500 SaO2% (BldA) [Mass fraction] 98 % Dr. Alisson Morton Work Phone: [facility] 01-04-2023 12:48-0500 Systolic blood pressure 115 mm[Hg] Dr. Alisson Morton Work Phone: [facility] 01-04-2023 11:46-0500 Body height 152.[address] Alisson Morton Work Phone: [facility] 01-04-2023 11:46-0500 Body mass index (BMI) [Ratio] 19.5 kg/m2 Dr. Alisson Morton Work Phone: [facility] 01-04-2023 11:46-0500 Body weight 45.[address] Alisson Morton Work Phone: [facility] 08-25-2022 10:12-0400 Body height 152.4 cm Toni Bey MD Work Phone: [facility] 08-25-2022 10:12-0400 Body mass index (BMI) [Ratio] 19.65 kg/m2 Toni Bey MD Work Phone: [facility] 08-25-2022 10:12-0400 Body weight 45.63 kg Toni Bey MD Work Phone: [facility] 08-25-2022 10:12-0400 Diastolic blood pressure 60 mm[Hg] Toni Bey MD Work Phone: [facility] 08-25-2022 10:12-0400 Heart rate 68 /min Toni Bey MD Work Phone: [facility] 08-25-2022 10:12-0400 Respiratory rate 16 /min Toni Bey MD Work Phone: [facility] 08-25-2022 10:12-0400 SaO2% (BldA) [Mass fraction] 95 % Toni Bey MD Work Phone: [facility] 08-25-2022 10:12-0400 Systolic blood pressure 110 mm[Hg] Toni Bey MD Work Phone: [facility] 06-16-2022 19:58-0400 Body temperature 97.39 [degF] Eric Cintron MD Work Phone: [facility] 06-16-2022 19:58-0400 Diastolic blood pressure 61 mm[Hg] Eric Cintron MD Work Phone: [facility] 06-16-2022 19:58-0400 Heart rate 77 /min Eric Cintron MD Work Phone: [facility] 06-16-2022 19:58-0400 Respiratory rate 18 /min Eric Cintron MD Work Phone: [facility] 06-16-2022 19:58-0400 SaO2% (BldA) [Mass fraction] 97 % Eric Cintron MD Work Phone: [facility] 06-16-2022 19:58-0400 Systolic blood pressure 123 mm[Hg] Eric Cintron MD Work Phone: [facility] 06-01-2022 23:41-0400 Diastolic blood pressure 59 mm[Hg] Dr. Alisson Morton Work Phone: [facility] 06-01-2022 23:41-0400 Heart rate 14 /min Dr. Alisson Morton Work Phone: [facility] 06-01-2022 23:41-0400 Respiratory rate 68 /min Dr. Alisson Morton Work Phone: [facility] 06-01-2022 23:41-0400 Systolic blood pressure 124 mm[Hg] Dr. Alisson Morton Work Phone: [facility] 06-01-2022 23:07-0400 SaO2% (BldA) [Mass fraction] 96 % Dr. Alisson Morton Work Phone: [facility] 06-01-2022 20:32-0400 Body mass index (BMI) [Ratio] 19.4 kg/m2 Dr. Alisson Morton Work Phone: [facility] 06-01-2022 20:32-0400 Body weight 45.[address] Alisson Morton Work Phone: [facility] 06-01-2022 19:08-0400 Body height 152.[address] Alisson Morton Work Phone: [facility] 06-01-2022 19:08-0400 Body temperature 98 [degF] Dr. Alisson Morton Work Phone: [facility] 05-13-2022 14:19-0400 Body temperature 98.5 [degF] Dr. Alisson Morton Work Phone: [facility] 05-13-2022 14:19-0400 Diastolic blood pressure 57 mm[Hg] Dr. Alisson Morton Work Phone: [facility] 05-13-2022 14:19-0400 Heart rate 64 /min Dr. Alisson Morton Work Phone: [facility] 05-13-2022 14:19-0400 Respiratory rate 16 /min Dr. Alisson Morton Work Phone: [facility] 05-13-2022 14:19-0400 SaO2% (BldA) [Mass fraction] 98 % Dr. Alisson Morton Work Phone: [facility] 05-13-2022 14:19-0400 Systolic blood pressure 120 mm[Hg] Dr. Alisson Morton Work Phone: [facility] 05-12-2022 14:31-0400 Body height 149.[address] Alisson Morton Work Phone: [facility] 05-12-2022 14:31-0400 Body weight 44.[address] Alisson Morton Work Phone: [facility] 05-12-2022 12:18-0400 Body mass index (BMI) [Ratio] 19.7 kg/m2 Dr. Alisson Morton Work Phone: [facility] 02-23-2022 08:20-0500 Diastolic blood pressure 60 mm[Hg] Mykel Powell MD Work Phone: [facility] 02-23-2022 08:20-0500 Heart rate 84 /min Mykel Powell MD Work Phone: [facility] 02-23-2022 08:20-0500 Respiratory rate 18 /min Mykel Powell MD Work Phone: [facility] 02-23-2022 08:20-0500 SaO2% (BldA) [Mass fraction] 100 % Mykel Powell MD Work Phone: [facility] 02-23-2022 08:20-0500 Systolic blood pressure 113 mm[Hg] Mykel Powell MD Work Phone: [facility] 02-23-2022 07:31-0500 Body height 152.4 cm Mykel Powell MD Work Phone: [facility] 02-23-2022 07:31-0500 Body mass index (BMI) [Ratio] 18.94 kg/m2 Mykel Powell MD Work Phone: [employer] 02-23-2022 07:31-0500 Body temperature 97.3 [degF] Mykel Powell MD Work Phone: [facility] 02-23-2022 07:31-0500 Body weight 44 kg Mykel Powell MD Work Phone: [facility] 06-04-2020 11:08-0400 Diastolic blood pressure 50 mm[Hg] Adela Cundra PA-C Work Phone: [employer] Work Phone: 06-04-2020 11:08-0400 Heart rate 73 /min Adela Cundra PA-C Work Phone: [facility] Work Phone: 06-04-2020 11:08-0400 Respiratory rate 15 /min Adela Cundra PA-C Work Phone: [employer] Work Phone: 06-04-2020 11:08-0400 SaO2% (BldA) [Mass fraction] 100 % Adela Cundra PA-C Work Phone: [facility] Work Phone: 06-04-2020 11:08-0400 Systolic blood pressure 103 mm[Hg] Adela Cundra PA-C Work Phone: [employer] Work Phone: 11-09-2019 11:21-0400 BP Diastolic 62 mm[Hg] [facility] [place] 11-09-2019 11:21-0400 BP Systolic 121 mm[Hg] [facility] [place] 11-09-2019 11:21-0400 Pulse (Heart Rate) 81 /min Zoe [employer] [facility] 11-09-2019 11:21-0400 Pulse Oximetry 100 % Zoe [employer] [facility] [place] 11-09-2019 11:21-0400 Respiratory Rate 16 /min Zoe [email or web address] [facility] [place] 03-07-2019 12:11-0500 Diastolic blood pressure 65 mm[Hg] [...] 98.29 [degF] Sonny Montague MD Work Phone: [employer] Work Phone: 02-18-2019 05:07-0500 Diastolic blood pressure 77 mm[Hg] Sonny Montague MD Work Phone: [employer] Work Phone: 02-18-2019 05:07-0500 Heart rate 85 /min Sonny Montague MD Work Phone: [employer] Work Phone: 02-18-2019 05:07-0500 Respiratory rate 18 /min Sonny Montague MD Work Phone: [employer] Work Phone: 02-18-2019 05:07-0500 SaO2% (BldA) [Mass fraction] 97 % Sonny Montague MD Work Phone: [employer] Work Phone: 02-18-2019 05:07-0500 Systolic blood pressure 151 mm[Hg] Sonny Montague MD Work Phone: [employer] Work Phone: 02-15-2019 06:27-0500 Body height 152.4 cm Sonny Montague MD Work Phone: [employer] Work Phone: 09-21-2018 14:16-0400 Body Temperature 97.59 [degF] [facility] 09-21-2018 14:16-0400 BP Diastolic 74 mm[Hg] [facility] [place] 09-21-2018 14:16-0400 BP Systolic 141 mm[Hg] [facility] [place] 09-21-2018 14:16-0400 Pulse (Heart Rate) 74 /min [facility] 09-21-2018 14:16-0400 Pulse Oximetry 98 % [facility] [place] 09-21-2018 14:16-0400 Respiratory Rate 16 /min Alissontyrone Morton [facility], [place] 09-17-2018 16:01-0400 Height 160 [facility] [place] 09-15-2018 13:00-0400 BMI (Body Mass Index) 21.72 kg/m2 Alisson Moses [facility] 09-15-2018 13:00-0400 Body weight 55.61 kg [facility] [place] Encounters Encounter Date Encounter Type Care Provider Facility Start: 10-05-2024 Non-patient / Non-visit Roque Daniel nd, DO -[facility] Start: 10-05-2024 End: 10-05-2024 Admission to same day surgery center Roque Herrera DO -Endoscopy Work Phone: Start: 10-05-2024 End: 10-05-[address] Alisson Morton DO Work Phone: -Endoscopy Start: 09-14-2024 ambulatory Alisson Morton Facility :[facility] Start: 09-14-2024 Registered Referred Anabel Duvall MD -[facility] Start: 08-27-2024 End: 08-27-[address] Alisson Morton DO Work Phone: -[facility] Start: 08-27-2024 End: 08-27-2024 Patient encounter procedure Osmar RUSSELL -[facility] Work Phone: Start: 08-18-2024 End: 08-18-2024 Office outpatient visit 25 minutes Toni Bey MD Work Phone: [facility] Cardiology [facility] Comment on above: Coronary artery dise ase involving [place] coronary artery of [place] heart without angina pectoris (Primary Dx); Persistent atrial fibrillation (HCC); Mixed hyperlipidemia Start: 08-18-2024 End: 08-18-2024 ambulatory [facility] Start: 08-18-2024 End: 08-18-2024 Patient encounter procedure Brittany RUSSELL -[facility] Work Phone: Start: 08-18-2024 End: 08-18-[address] Alisson Morton DO Work Phone: [facility] Start: 08-18-2024 Registered Referred Anabel Bryan Start: 08-17-2024 End: 08-18-2024 ambulatory Alisson Morton Facility:[facility] Start: 08-09-2024 Registered Referred Anabel Bryan Start: 08-08-2024 End: 08-09-[address] Alisson Morton DO Work Phone: [facility] Start: 08-08-2024 End: 08-08-[address] Anabel Duvall MD -[facility] Work Phone: Start: 07-25-2024 End: 07-25-[address] Alisson Morton DO Work Phone: [facility] Start: 07-25-2024 End: 07-25-2024 Patient encounter procedure Fallon Mcclendon WORKFORCE ANALYST- -[facility] Work Phone: Start: 07-17-2024 End: 07-17-[address] Alisson Morton DO Work Phone: [facility] Start: 07-17-2024 End: 07-17-2024 Patient encounter procedure Osmar RUSSELL -[facility] Work Phone: Start: 06-20-2024 End: 06-20-[address] Alisson Morton DO Work Phone: [facility] Start: 06-20-2024 End: 06-20-[address] Anabel Duvall MD -[facility] Work Phone: Start: 06-12-2024 End: 06-12-2024 Departed Referred Anabel Bryan Start: 06-12-2024 Registered Referred Anabel STEPHENSON [facility] Start: 06-12-2024 End: 06-12-2024 ambulatory Anabel WALSH Facility:[facility] Start: 05-09-2024 End: 05-09-[address] Alisson Morton DO Work Phone: [facility] Work Phone: Start: 05-09-2024 End: 05-09-[address] Anabel Duvall MD -[facility] Work Phone: Start: 04-10-2024 End: 04-10-2024 ambulatory Fallon Mcclendon Facility:[facility] Start: 04-10-2024 End: 04-10-2024 Patient encounter procedure Fallon Mcclendon WORKFORCE ANALYST-C -[facility] Work Phone: Start: 03-21-2024 End: 03-21-2024 ambulatory Alisson Morton Facility:[facility] Start: 03-21-2024 End: 03-21-[address] Anabel Duvall MD -[facility] Work Phone: Start: 03-16-2024 ambulatory Anabel WALSH Facility:[facility] Start: 03-16-2024 Registered Referred Anabel STEPHENSON [facility] Start: 02-10-2024 End: 02-10-2024 ambulatory Alisson Morton Facility:[facility] Start: 01-25-2024 End: 01-25-2024 ambulatory Alisson Morton Facility:[facility] Start: 12-20-2023 End: 12-20-2023 Subsequent hospital visit by physician Alisson Morton DO Work Phone: [facility] Comment on above: Other specified dise ases of liver Start: 12-20-2023 End: 12-20-2023 ambulatory ALISSON MORTON [facility] Start: 12-16-2023 End: 12-17-2023 ambulatory Anabel WALSH Facility:[facility] Start: 12-15-2023 End: 12-15-2023 ambulatory Fallon Mcclendon Facility:[facility] Start: 12-01-2023 End: 03-01-2024 Transcribe Orders Alisson Lima Praveen DO Work Phone: [facility] Comment on above: Other specified dise ases of liver (Primary Dx) Start: 11-11-2023 End: 11-11-2023 ambulatory ALISSON [facility] Start: 11-11-2023 End: 11-11-2023 Subsequent hospital visit by physician Alisson Morton DO Work Phone: [facility] Comment on above: Other specified abno rmal findings of blood chemistry Start: 10-26-2023 End: 01-25-2024 Transcribe Orders Alisson Lima Praveen DO Work Phone: [facility] Central Scheduling Comment on above: Other specified abno rmal findings of blood chemistry (Primary Dx) Start: 08-18-2023 End: 08-18-2023 Office outpatient visit 25 minutes Toni Bey MD Work Phone: [facility] Comment on above: Coronary artery dise ase involving [place] coronary artery of [place] heart without angina pectoris (Primary Dx); Persistent atrial fibrillation (HCC); Mixed hyperlipidemia; Vascular dementia, unspecified dementia severity, unspecified whether behavioral, psychotic, or mood disturbance or anxiety (HCC) Start: 07-23-2023 End: 07-23-2023 Telephone encounter Toni Bey MD Work Phone: [facility] Comment on above: Cardiac Clearance Start: 07-20-2023 ambulatory [facility] Start: 07-20-2023 Patient encounter procedure [facility] Start: 05-11-2023 End: 08-10-2023 Transcribe Orders Brittany Mitchell FUNERAL DRIVER - [employer] Work Phone: [facility] Outaptient Lab Comment on above: Dorsalgia, unspecifi ed (Primary Dx); Unspecified urinary incontinence Start: 04-10-2023 Refill Yeny benjamin FUNERAL DRIVER - [employer] DEVELOPER Work Phone: [facility] Start: 04-04-2023 End: 04-04-2023 Emergency department patient visit Dr. Alisson Morton Work Phone: [facility]Emergency Department Work Phone: Start: 04-04-2023 End: 04-04-2023 Patient encounter procedure Billie James [employer] DEVELOPER Work Phone: [facility] Comment on above: Injury of head, init ial encounter (Primary Dx) Start: 03-04-2023 End: 03-04-[address] Alisson Morton Work Phone: [facility] Work Phone: Start: 01-04-2023 Non-patient / Non-visit Dr. Joana Morton Work Phone: [facility] Start: 01-04-2023 End: 01-04-2023 Admission to same day surgery center Dr. Alisson Morton Work Phone: [facility]-Endoscopy Work Phone: Start: 01-04-2023 End: 01-04-[address] Alisson Morton Work Phone: [facility] Work Phone: Start: 12-09-2022 Telephone encounter Toni sánchez MD Work Phone: [facility] Cardiology Comment on above: Cardiac Clearance Start: 10-28-2022 End: 10-28-2022 Subsequent hospital visit by physician Alisson Morton DO Work Phone: [facility] Comment on above: Other specified abno rmal findings of blood chemistry Start: 10-23-2022 Transcribe Orders Alisson Myres Work Phone: [facility] Central Scheduling Comment on above: Other specified abno rmal findings of blood chemistry (Primary Dx) Start: 10-21-2022 End: 10-21-[address] Alisson Morton Work Phone: [facility] Work Phone: Start: 10-21-2022 End: 10-21-[address] Alisson Morton Work Phone: [facility]-Physical Therapy Work Phone: Start: 10-10-2022 Refill Yeny benjamin FUNERAL DRIVER - [employer]ELOPER Work Phone: [facility] Start: 09-24-2022 End: 09-24-2022 ambulatory Cheryl Lopez PAMishaC Work Phone: [facility] Laboratory Comment on above: Arrived Hyperlipidemia, unsp ecified (Primary Dx) Start: 09-14-2022 Transcribe Orders Toni Bey MD Work Phone: [facility] Laboratory Comment on above: Other persistent atr ial fibrillation (HCC) (Primary Dx) Start: 08-25-2022 End: 08-25-2022 Office outpatient visit 25 minutes Toni Bey MD Work Phone: [facility] Comment on above: Coronary artery dise ase involving [place] coronary artery of [place] heart without angina pectoris (Primary Dx); Persistent atrial fibrillation (HCC); Mixed hyperlipidemia Start: 07-18-2022 Refill Toni Lou Work Phone: [facility] Start: 07-09-[address] Alisson carlos Work Phone: [facility] Start: 06-30-2022 End: 06-30-[address] Alisson Morton Work Phone: [facility] Work Phone: Start: 06-26-[address] Alisson carlos Work Phone: [facility] Start: 06-25-[address] Alisson carlos Work Phone: [facility] Start: 06-24-2022 End: 06-24-[address] Alisson Morton Work Phone: [facility] Work Phone: Start: 06-13-2022 End: 06-16-2022 Evaluation and management of inpatient Eric Cintron MD Work Phone: [facility] 2E TELEMETRY Comment on above: Anemia (Primary Dx); Hyponatremia; Hepatitis Start: 06-13-2022 End: 06-13-2022 Subsequent hospital visit by physician Alisson Morton DO Work Phone: [facility] Vascular Lab Comment on above: Other specified symp toms and signs involving the circulatory and respiratory systems Start: 06-01-2022 End: 06-02-2022 Emergency department patient visit Dr. Alisson Morton Work Phone: [facility]-Emergency Department Start: 05-27-2022 Transcribe Orders Alisson sánchez DO Work Phone: [facility] Central Scheduling Comment on above: Other specified symp toms and signs involving the circulatory and respiratory systems (Primary Dx) Start: 05-13-2022 Non-patient / Non-visit Dr. Joana Morton Work Phone: [facility] Start: 05-13-2022 End: 05-13-2022 Non-patient / Non-visit Dr. Alisson Morton Work Phone: [facility] Start: 05-12-2022 Non-patient / Non-visit Dr. Joana Morton Work Phone: [facility] Start: 05-12-2022 Non-patient / Non-visit Dr. Joana Morton Work Phone: [facility] Start: 05-12-2022 End: 05-13-2022 Evaluation and management of inpatient [facility]isson Morton [facility] Start: 05-12-2022 End: 05-13-[address] 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) Start: 05-09-2021 End: 05-09-2021 Discharged Recurring [facility]Physical Therapy Start: 02-10-2021 End: 02-10-2021 Discharged Recurring [facility] Therapy Start: 08-20-2020 End: 08-20-2020 Subsequent hospital visit by physician Alisson Morton DO Work Phone: [facility] [place] Comment on above: Abnormal results of liver function studies Start: 06-04-2020 End: 06-04-2020 Subsequent hospital visit by physician Adela Reeves PA-C Work Phone: [facility] Comment on above: Left thyroid nodule Start: 05-21-2020 End: 05-21-2020 Subsequent hospital visit by physician Zoe Wyatt Work Phone: [facility] Comment on above: Thyroid nodule Start: 02-07-2020 End: 02-07-2020 Subsequent hospital visit by physician Alisson Morton Work Phone: [facility] Start: 11-09-2019 End: 11-09-2019 Subsequent hospital visit by physician Zoe Wyatt Work Phone: [facility] Comment on above: Thyroid nodule Start: 10-18-2019 End: 10-18-2019 Subsequent hospital visit by physician Alisson Morton Work Phone: [facility] Comment on above: Nontoxic single thyr oid nodule Start: 08-21-2019 End: 08-21-2019 Subsequent hospital visit by physician Yeny Huntley Work Phone: [facility] Laboratory Comment on above: Coronary artery dise ase involving [place] coronary artery of [place] heart without angina pectoris; Dyslipidemia Start: 04-04-2019 End: 04-04-2019 Subsequent hospital visit by physician Alisson Morton Work Phone: [facility] Comment on above: Arrived Start: 03-31-2019 End: 03-31-2019 Subsequent hospital visit by physician Alisson Morton Work Phone: [facility] Start: 03-07-2019 End: 03-07-2019 Subsequent hospital [...] management of inpatient Alisson Morton Work Phone: [facility] 4S TELEMETRY Procedures Date Procedure Procedure Detail Performing Clinician Start: 10-05-[address] Alisson cárdenas DO Work Phone: Start: 08-18-2024 Ecg routine ecg w/least 12 [...] Phone: Start: 06-14-2022 Comprehensive metabolic panel Alisson Lima Est erle [...] limited Alisson Morton DO Work Phone: Start: 06-04-2020 Us [...] & neck real time imge docm Alisson Morton Work Phone: Start: 08-21-2019 Basic metabolic panel calcium total Yeny Huntley Work Phone: Start: 08-21-2019 Blood count complete automated Yeny Huntley Work Phone: Start: 08-21-2019 Hepatic function panel Yeny Huntley Work Phone: Start: 04-04-2019 CT ABDOMEN PELVIS W CONTRAST Alisson Lima Sandi rle Work Phone: Start: 04-04-2019 Ct thorax w/contrast material Alisson M Est erle Work Phone: Start: 03-31-2019 Creatinine blood Alisson Morton Work Phone: Start: 03-07-2019 HM ENDOSCOPY REPORT 3m Scanning Start: 02-18-2019 Assay of lipase Gustavo Muniz MD Work Phone: Start: 02-17-2019 Basic metabolic panel calcium total Gustavo Muniz MD Work Phone: Start: 02-17-2019 Hepatic function panel Gustavo Munzi MD Work Phone: Start: 02-16-2019 Assay of lipase Gustavo Muniz MD Work Phone: Start: 02-16-2019 Basic metabolic panel calcium total Sharmila Lr MD Work Phone: Start: 02-16-2019 Hepatic function panel Sharmila Lr MD Work Phone: Start: 02-16-2019 Manual Differential panel - Blood Lisa Smiley MD Work Phone: Start: 02-15-2019 OPERATIVE REPORT 3m Scanning Start: 02-15-2019 ENDOSCOPY REPORT 3m Scanning Start: 02-15-2019 Antibody screen Sonny Montague MD Work Phone: Comment on above: Test Performed by [facility], [address] [place] [id number] Start: 02-15-2019 Cmbn ndsc cathj biliary&pncrtc ductal [...] Start: 02-13-2019 Assay of magnesium Gem A Jarrell DO Work Phone: Start: 02-13-2019 BASIC METABOLIC PANEL W/ REFLEX TO MG FOR LOW K Gem A Jarrell DO Work Phone: Start: 02-13-2019 Hepatic function panel Gem A Loomi s DO Work Phone: Start: 02-12-2019 ADD ON LAB TEST Gem A Jarrell DO Work Phone: Start: 02-12-2019 Bilirubin direct Sonny Peres MD Work Phone: Start: 02-11-2019 Mri abdomen w/o contrast material Elisab eth A Beverley DO Work Phone: Start: 02-11-2019 End: 02-11-2019 ADD ON LAB TEST Sonny Montague MD Work Phone: Start: 02-11-2019 PROTIME/INR & PTT Gem A Beverley DO Work Phone: Start: 02-11-2019 Us abdominal real time w/image limited Reina Andino MD Work Phone: Start: 02-11-2019 Basic metabolic panel calcium total Osmar GIRON Work Phone: Start: 02-11-2019 Hepatic function panel Osmar Ribeiro P A Work Phone: Start: 02-11-2019 Ecg routine ecg w/least 12 lds w/i&r Osmar Ribeiro PA Work Phone: Start: 09-21-2018 Colonoscopy 3m Scanning Start: 09-21-2018 Comprehensive metabolic panel Alisson morales Work Phone: Start: 09-20-2018 Blood count complete auto&auto difrntl wbc Mark J Amin Work Phone: Start: 09-20-2018 Comprehensive metabolic panel Kiko harden Work Phone: Start: 09-20-2018 Lactate dehydrogenase ldh Mark Bradley Amin Work Phone: Start: 09-19-2018 Us abdominal real time w/image limited Seema Cabral Work Phone: Start: 09-19-2018 Assay of lipase Seema Cabral Work Phone: Start: 09-19-2018 Blood count complete auto&auto difrntl wbc Seema Cabral Work Phone: Start: 09-19-2018 Comprehensive metabolic panel Seema taylor Work Phone: Start: 09-18-2018 Assay of lipase Seema Cabral Work Phone: Start: 09-18-2018 Blood count complete auto&auto difrntl wbc Seema Cabral Work Phone: Start: 09-18-2018 Comprehensive metabolic panel Seema Cardenas nnbetty Work Phone: Start: 09-17-2018 Hepatobiliary syst imaging including gallbladder Kiko Lau Work Phone: Start: 09-17-2018 Assay of lipase Dimitris Cavazos Work Phone: Start: 09-17-2018 Comprehensive metabolic panel Dimitris Cavazos Work Phone: Start: 09-16-2018 Mri abdomen w/o contrast material Kiko Lau Work Phone: Start: 09-16-2018 Assay of magnesium Alisson Lima Esterle Work Phone: Start: 09-16-2018 Assay of troponin quantitative Alisson Lima Es terle Work Phone: Start: 09-16-2018 Blood [...] Us abdominal real time w/image limited Alisson Janie Esterle Work Phone: Start: 09-15-2018 Assay of troponin quantitative Alisson M Es terle Work Phone: Start: 09-15-2018 Culture bacterial blood aerobic w/id isolates Alisson M Esterle Work Phone: Start: 09-15-2018 Radiologic exam chest 2 views Alisson M Est erle Work Phone: Start: 09-15-2018 Acute hepatitis panel Alisson M Esterle Work Phone: Start: 09-15-2018 Assay of troponin quantitative Alisson M Es terle Work Phone: Start: 09-15-2018 Blood count complete auto&auto difrntl wbc Alisson M Esterle Work Phone: Start: 09-15-2018 Comprehensive [...] DTaP/Tdap/Td vaccine (2 - Td or Tdap) [facility] Start: 12-01-2029 DTaP/Tdap/Td vaccine (2 - Td) DTaP/Tdap/Td vaccine (2 - Td) [facility] Work Phone: Start: 12-01-2029 DTaP/Tdap/Td Vaccines (2 - Td or Tdap) DTaP/Tdap/Td Vaccines (2 - Td or Tdap) [facility] Start: 09-25-2027 Lipid panel Lipid Panel [facility] Start: 09-24-2025 Diabetes Screening Diabetes Screening [facility] Start: 08-20-2025 End: 08-20-2025 Patient encounter procedure 08/20/2025 2:00 PM EDT Office Visit [facility] [address] [facility] [address] [place] [phone] Toni Bey MD [address] [address] [facility] Start: 10-09-2024 Influenza vaccination Influenza Vaccine (#1) [facility] Start: 10-05-2024 Patient discharge [facility] Start: 08-18-2024 End: 08-18-2024 Patient encounter procedure [facility] Start: 08-17-2024 [facility] Start: 08-17-2024 Bacteria identified in Urine by Culture Urine Culture [facility] Start: 10-10-2023 COVID-19 Vaccine ( season) COVID-19 Vaccine () [facility] Start: 10-10-2023 COVID-19 Vaccine ( season) COVID-19 Vaccine () [facility] Start: 10-10-2023 Influenza vaccination [facility] Start: 09-25-2023 Creatinine measurement Creatinine Level [facility] Start: 09-25-2023 Diabetes: Estimated Glomerular Filtration Rate for Kidney Health Diabetes: Estimated Glomerular Filtration Rate for Kidney Health [facility] Start: 09-25-2023 Potassium measurement Potassium Level [facility] Start: 08-18-2023 End: 08-18-2023 Patient encounter procedure 08/18/2023 11:00 AM EDT Office Visit [facility] [address] [phone] Toni Bey MD [address] [facility] [address] [place] [address] [facility] Start: 08-06-2023 Lipid screen Lipid screen [place], [place] Start: 06-04-2023 Medicare Annual Wellness (AWV) Medicare Annual Wellness (AWV) [facility] Start: 04-04-2023 [facility] Start: 02-08-2023 Advance Directive Discussion Advance Directive Discussion [facility] Start: 02-08-2023 Depression Assessment Depression Assessment [facility] Start: 01-04-2023 Egd insert guide wire dilator passage esophagus EGD GUIDE WIRE INSERTION [facility] Start: 01-04-2023 Egd transoral biopsy single/multiple EGD BIOPSY SINGLE/MULTIPLE [facility] Start: 01-04-2023 Patient discharge [facility] Start: 10-09-2022 COVID-19 Vaccine ( season) COVID-19 Vaccine () [facility] Start: 10-09-2022 Influenza vaccination Influenza Vaccine (#1) [facility] Start: 08-25-2022 End: 08-25-2022 Patient encounter procedure 08/25/2022 10:00 AM EDT Office Visit [facility] [address] [facility] [address] [place] [phone] Toni Bey MD [address] [facility] [address] [place] [address] [facility] Start: 06-01-2022 [facility] Start: 05-14-2022 Blood chemistry [facility] Start: 05-13-2022 Patient discharge [facility] Start: 05-12-2022 Catheterization of vein [facility] Start: 05-12-2022 Care regimes management [facility] Start: 05-12-2022 Notification of physician [facility] Start: 05-12-2022 [facility] Start: 05-12-2022 Egd insert guide wire dilator passage esophagus EGD GUIDE WIRE INSERTION [facility] Start: 05-12-2022 Egd transoral biopsy single/multiple EGD BIOPSY SINGLE/MULTIPLE [facility] Start: 05-12-2022 Application of intermittent pneumatic compression device [facility] Start: 05-12-2022 Ambulation without limitation [facility] Start: 05-12-2022 Assessment of risk of venous thromboembolism [facility] Start: 05-12-2022 Insertion of catheter into peripheral vein [facility] Start: 05-12-2022 Providing care according to standard [facility] Start: 05-12-2022 Referral to gastroenterology service [facility] Start: 05-12-2022 [facility] Start: 05-12-2022 Following clinical pathway protocol [facility] Start: 05-12-2022 Admission procedure [facility] Start: 05-12-2022 Patient referral to dietitian [facility] Start: 03-13-2022 End: 03-13-2022 Patient encounter procedure 03/13/2022 Office Visit Gastroenterology Gin Finn, FUNERAL DRIVER - [employer] SPRING DEVELOPER [address] [facility] [address] [place] [address] [facility] Start: 02-26-2022 Hemoglobin A1c measurement Diabetes: Hemoglobin A1C [facility] Start: 02-23-2022 End: 02-23-2022 Esophagogastroduodenoscopy transoral diagnostic EGD DIAGNOSTIC Dysphagia 02/23/2022 7:42 AM EST [facility] Start: 12-30-2021 Creatinine measurement Creatinine monitoring [facility] Start: 12-30-2021 Potassium monitoring Potassium monitoring [facility] Start: 11-08-2021 Lipid panel [facility] Start: 01-10-2021 COVID-19 Vaccine (4 - Booster for Pfizer series) COVID-19 Vaccine (4 - Booster for Pfizer series) [facility] Start: 01-10-2021 COVID-19 Vaccine (4 - Pfizer series) COVID-19 Vaccine (4 - Pfizer series) [facility] Start: 10-17-2020 Statin Therapy Statin Therapy [place] [place] [facility] Start: 10-09-2020 Influenza vaccination Flu vaccine (#1) [facility] Work Phone: Start: 08-20-2020 Creatinine measurement Creatinine monitoring [place], [place] Start: 08-20-2020 [facility] Start: 06-10-2020 End: 06-10-2020 Patient encounter procedure 06/10/2020 Office Visit General Surgery Kiko Bowie MD [address] [place], [place] [id number] Gen Surg - [facility] Start: 05-27-2020 End: 05-27-2020 Office Visit 05/27/2020 Office Visit General Surgery Kiko Bowie MD [address] [place] [address] [phone] Gen Surg - [facility] Start: 03-31-2020 Creatinine measurement Creatinine monitoring [place], [place] Start: 03-31-2020 Creatinine monitoring Creatinine monitoring [place] , [place] Start: 02-18-2020 Creatinine monitoring Creatinine monitoring [facility] Work Phone: Start: 02-18-2020 Potassium monitoring Potassium monitoring [facility] Work Phone: Start: 11-25-2019 Pneumococcal Vaccine: 50+ Years (2 of 2 - PCV) Pneumococcal Vaccine: 50+ Years (2 of 2 - PCV) [facility] Start: 11-25-2019 Pneumococcal Vaccine: 65+ (2 of 2 - PCV) Pneumococcal Vaccine: 65+ (2 of 2 - PCV) [facility] Start: 11-25-2019 Pneumococcal Vaccine: 65+ Years (2 - PCV) Pneumococcal Vaccine: 65+ Years (2 - PCV) [facility] Start: 11-25-2019 Pneumococcal Vaccine: 65+ Years (2 of 2 - PCV) Pneumococcal Vaccine: 65+ Years (2 of 2 - PCV) [facility] Start: 10-10-2019 Influenza vaccination Flu vaccine (#1) [place] Start: 09-22-2019 Creatinine monitoring Creatinine monitoring [place], [place] Start: 09-22-2019 Potassium monitoring Potassium monitoring [place], [place] Start: 08-06-2019 Lipid panel Lipid screen [place] Start: 08-06-2019 Lipid screen Lipid screen [facility] Work Phone: Start: 05-25-2019 End: 05-25-2019 Office Visit 05/25/2019 Office Visit Cardiology Toni Bey MD [address] [facility] [address] [place] [address] [phone] [facility] Start: 04-04-2019 Hospital Encounter 04/04/2019 Hospital Encounter Radiology Alisson Morton, DO [address] [place] [address] [phone] [facility] [place] Start: 10-09-2018 Influenza vaccination Flu vaccine (#1) [place], [place] Start: 10-04-2018 End: 10-04-2018 Office Visit 10/04/2018 Office Visit Cardiology Yeny Huntley, FUNERAL DRIVER - [employer]ING DEVELOPER [address] [place] [address] [phone] [facility] Start: 08-05-2018 Annual Wellness Visit (AWV) Annual Wellness Visit (AWV) [facility] Start: 2017 RSV Immunization for Adults (1 - 1-dose 75+ series) RSV Immunization for Adults (1 - 1-dose 75+ series) [facility] Start: 10-16-2007 Pneumococcal 65+ years Vaccine (1 of 2 - PCV13) Pneumococcal 65+ years Vaccine (1 of 2 - PCV13) [place], [place] Start: 2005 Annual Wellness Visit (AWV) Annual Wellness Visit (AWV) [place], [place] Start: 2002 Hepatitis B Vaccines (1 of 3 - Risk 3-dose series) Hepatitis B Vaccines (1 of 3 - Risk 3-dose series) [facility] Start: 2002 RSV Immunization aged 60 or older (1 - 1-dose 60+ series) RSV Immunization aged 60 or older (1 - 1-dose 60+ series) [facility] Start: 1992 Colon cancer screen colonoscopy Colon cancer screen colonoscopy [place], [place] Start: 1992 Shingles Vaccine (1 of 2) Shingles Vaccine (1 of 2) [facility] Start: 1992 Shingrix Vaccine (1 of 2) Shingrix Vaccine (1 of 2) [facility] Start: 1992 Zoster Vaccines (1 of 2) Zoster Vaccines (1 of 2) [facility] Start: 1961 DTaP/Tdap/Td vaccine (1 - Tdap) DTaP/Tdap/Td vaccine (1 - Tdap) [place], [place] Start: 1961 Hepatitis A Vaccines (1 of 2 - Risk 2-dose series) Hepatitis A Vaccines (1 of 2 - Risk 2-dose series) [facility] Start: 1961 Urine microalbumin profile DTaP,Tdap,Td Vaccine (1 - Tdap) [facility] [facility] Start: 1961 Urine screening for protein Diabetes: Urine Protein Screening [facility] Start: 1960 Diabetes: Urine Albumin-Creatinine Ratio for Kidney Health Diabetes: Urine Albumin-Creatinine Ratio for Kidney Health [facility] Start: 1960 Hepatitis C screening Hepatitis C Screening [facility] Start: 1954 Depression Monitoring Depression Monitoring [facility] Start: 1954 Depression Screen Depression Screen [facility] Start: 1954 Depression Screening Depression Screening [facility] Start: 1953 DTaP/Tdap/Td vaccine (1 - Tdap) DTaP/Tdap/Td vaccine (1 - Tdap) [facility] Work Phone: Start: 1952 Diabetic foot examination Diabetes: Foot Exam [facility] Start: 1952 Glaucoma screening Diabetes: Retinopathy Screening [facility] Start: 1952 Preventive dental service Diabetes: Dental Exam [facility] Start: 10-16-1941 Hepatitis A Vaccines (1 of 2 - Risk 2-dose series) Hepatitis A Vaccines (1 of 2 - Risk 2-dose series) [facility] Start: 1942 Echocardiography Echocardiogram [facility] Start: 1942 Hemoglobin A1c measurement Diabetes: Hemoglobin A1C [facility] Start: 1942 Hepatitis B Vaccines (1 of 3 - 3-dose series) Hepatitis B Vaccines (1 of 3 - 3-dose series) [facility] Start: 1942 Medicare Annual Wellness (AWV) Medicare Annual Wellness (AWV) [facility] Start: 1942 Screening for osteoporosis Bone Density Scan [facility] Bacteria identified in Blood by Culture Blood culture #1 - Suspected Infection Microbiology STAT 06/13/2022 2:43 PM EDT [facility] Bacteria identified in Blood by Culture Blood culture #1 - Suspected Infection Microbiology STAT 06/13/2022 3:49 PM EDT [facility] Bacteria identified in Urine by Culture Urine Culture [facility] End: 03-07-2019 Blood glucose - POCT Blood glucose - POCT Point of Care Testing Routine One Time for 1 Occurrences starting 03/07/2019 until 03/07/2019 [facility] Work Phone: Comment on above: One Time for 1 Occurrences starting 02/09 until 03/07/2019 Comprehensive metabo lic 2000 panel Comprehensive Metabolic Panel Lab Routine Daily until discontinued starting 09/17/2018, 1 completed [place], [place] Comment on above: Daily until discontinued starting 2018, 1 completed End: 05-13-2021 CT HEAD WO CONTRAST [facility] Work Phone: Comment on above: Once for 1 Occurrences starting 05/14/19 until 05/13/2021 End: 06-13-2022 Hemoglobin.gastrointestinal.low er [Presence] in Stool by Immunoassay --1st specimen [facility] Work Phone: Comment on above: STAT (Lab) for 1 Occurrences starting until 06/13/2022 Once (Lab) for 1 Occ urrences starting 06/13/2022 until 06/13/2022 Initiate Oxygen Ther apy Protocol [place] Comment on above: Daily until discontinued starting 2018 Daily until disconti nued starting 02/11/2019 End: 12-20-2023 MR Abdomen WO and W contrast IV [facility] [place] [facility] Work Phone: Comment on above: Once for 1 Occurrences starting 12/20/19 until 12/20/2023 OUTSIDE PROCEDURE SCAN OUTSIDE P ROCEDURE SCAN Procedures Ordered: 06/13/2022 [facility] Comment on above: Ordered: 06/13/2022 OUTSIDE PROCEDURE SCAN OUTSIDE P ROCEDURE SCAN Procedures Ordered: 09/24/2022 [facility] Comment on above: Ordered: 09/24/2022 OUTSIDE PROCEDURE SCAN OUTSIDE P ROCEDURE SCAN Procedures Ordered: 10/27/2022 [facility] Comment on above: Ordered: 10/27/2022 Patient Education [facility] Work Phone: Patient referral [facility] Work Phone: End: 03-07-2019 Pulse Oximetry Spot Check Pulse Oximetry Spot Check Respiratory Care Routine One Time for 1 Occurrences starting 03/07/2019 until 03/07/2019 [facility] Work Phone: Comment on above: One Time for 1 Occurrences starting 02/09 until 03/07/2019 End: 09-21-2018 Surgical Pathology Surgical Pathology Lab Routine Once for 1 Occurrences starting 09/21/2018 until 09/21/2018 [place] Comment on above: Once for 1 Occurrences starting 09/22/19 until 09/21/2018 [facility] End: 02-15-2019 Surgical Pathology Surgical Pathology Lab Routine Once for 1 Occurrences starting 02/15/2019 until 02/15/2019 [facility] Work Phone: Comment on above: Once for 1 Occurrences starting 02/15/19 until 02/15/2019 Tissue exam [facility] Work Phone: Comment on above: Release Upon Ordering for 1 Occurrences starting 02/23/2022, 1 completed Urine culture [facility] End: 10-28-2022 US Abdomen [facility] Work Phone: Comment on above: Once for 1 Occurrences starting 10/29/19 until 10/28/2022 End: 05-21-2020 US Thyroid US Thyroid Imaging Routine Thyroid nodule 1 Occurrences starting 05/21/2020 until 05/21/2020 [facility] Work Phone: Comment on above: 1 Occurrences starting 05/21/2020 until 05/21/2020 US THYROID US THYROID Imagi ng Routine Thyroid nodule 05/21/2020 1:55 PM EDT [facility] Work Phone: Immunizations Immunization Date Immunization Notes Care Provider Fa cili 01-11-2023 influenza virus vaccine, unspecified formulation Alisson Morton DO Work Phone: [facility] 12-23-2021 Influenza, high dose seasonal Dr. Alisson Morton DO Work Phone: [facility] 12-23-2021 influenza, high dose seasonal, preservative-free Dr. Alisson Morton Work Phone: [facility] 12-23-2021 influenza virus vaccine, unspecified formulation Toni Bey MD Work Phone: [facility] 11-15-2020 Pfizer SARS-CoV-[address] Alisson Morton Work Phone: [facility] 05-03-2020 Pfizer SARS-CoV-[address] Alisson Morton Work Phone: [facility] 04-09-2020 Pfizer SARS-CoV-[address] Alisson Morton Work Phone: [facility] Payers Date Payer Category Payer Self-pay [id number] 2021 Medicare supplementa l policy (as second payer) [facility] [id number] 2021 Unknown [id number] 1.13.680.2 .[id number] 2015 Unknown [id number] .[id number] 2015 Unknown [employer] [address] [id number] 2015-Present [phone] [address] [place] [address] [id number] [id number] .7.3.080925.315 2015 Unknown [id number] [id number] .7.3.270849.315 2014 Medicare MEDICARE MEDICAR E PART A AND B xxxxxxxxxxx 2014-Present [phone] [place] [address] xxxxxxxxxxx [id number] .7.3.429109.315 2014 Medicare MEDICARE MEDICAR E PART A AND B [id number] 2014-Present [phone] [place] [address] [id number] .7.3.463933.315 2007 Medicare [id number]. 1.13.680.2 .7.3.521294.315 2007 Medicare [id number] 1.2.840.197008.1.13.239.2 .7.3.175851.315 Unknown [id number] 2.16.840.1.828179.3.579.2 .462 Unknown [id number] 2.16.840.1.710561.3.579.2 .462 Unknown [id number] 2.16.840.1.144212.3.579.2 .462 Unknown [id number] 2.16.840.1.584902.3.579.2 .462 Unknown [id number] 2.16.840.1.165479.3.579.2 .462 Unknown [id number] 2.16.840.1.614913.3.579.2 .462 Unknown [id number] 2.16.840.1.553003.3.579.2 .462 Unknown [id number] 2.16.840.1.431075.3.579.2 .462 Unknown [id number] 2.16.840.1.839640.3.579.2 .462 Unknown [id number] 2.16.840.1.727006.3.579.2 .462 Unknown [id number] 2.16.840.1.764549.3.579.2 .462 Unknown [id number] 2.16.840.1.286836.3.579.2 .462 Unknown [id number] 2.16.840.1.365792.3.579.2 .462 Unknown [id number] 2.16.840.1.374952.3.579.2 .462 Unknown [id number] 2.16.840.1.442060.3.579.2 .462 Unknown [id number] 2.16.840.1.978244.3.579.2 .462 Unknown [id number] 2.16.840.1.868543.3.579.2 .462 Unknown [id number] 2.16.840.1.614068.3.579.2 .462 Unknown [id number] 2.16.840.1.715703.3.579.2 .462 Unknown [id number] 2.16.840.1.670124.3.579.2 .462 Unknown [id number] 2.16.840.1.645433.3.579.2 .462 Social History Date Type Detail Facility Start: 09-21-2018 End: 10-05-2024 Tobacco smoking status NHIS Never smoker [facility] Start: 09-21-2018 End: 08-18-2024 Alcohol intake Not Currently [facility] Start: 1940 [facility] [place] [place] Start: 03-07-2019 End: 11-05-2020 Alcohol intake Ex-drinker (finding) [facility] Work Phone: Start: 08-04-2018 End: 03-07-2019 [facility] and exposure [facility] [place] [place] Start: 1940 Sex Assigned At Female [facility] Work Phone: Start: 02-13-2022 End: 10-28-2022 Exposure to SARS-CoV-2 (event) Not sure [facility] Start: 02-10-2019 End: 04-04-2023 Tobacco smoking status CTIS Unknown if ever smoked [facility] Start: 02-10-2019 Non-smoker [facility] Start: 02-24-2022 End: 06-13-2022 Alcohol intake Not Asked [facility] Start: 06-14-2022 End: 08-18-2024 History of Social function [facility] Start: 11-27-2021 Sexual orientation Heterosexual (franck vargas) [facility] Start: 08-25-2022 End: 08-18-2024 Alcohol intake Lifetime non-drinker (finding) [facility] Start: 09-08-2021 Sex Female (finding) [facility] NEGATED: Highlighted row [facility] Medical Equipment Procedure Code Equipment Code Equipment Origin al Text Equipment Identifier Dates TEST SUGAR ONCE A DAY [id number] Start: 03-27-2021 TEST SUGAR ONCE A DAY [id number] Start: 03-27-2021 Goals Date Patient Goal Desired Activity /State Functional Status Date Assessment Result Facility 05-13-2022 Functional status Bathroom Privilege [facility] Work Phone: Mental Status Date Assessment Result Facility 10-05-2024 Cognitive function Level Of Consciousness Drowsy [facility] Work Phone: 10-05-2024 Cognitive function Voice/Name [facility] Work Phone: 01-04-2023 Cognitive function Voice/Name [facility] Work Phone: 06-01-2022 Cognitive function Level Of Cons ciousness Awake;Alert;Appropriate;Follow s Commands [facility] Work Phone: 05-13-2022 Cognitive function Appropriate;Cooperativ e [facility] Work Phone: 05-13-2022 Cognitive function Voice/Name [facility] Work Phone: Clinical Notes 02-13-2019 to 10-05-2024 Note Date & Type Note Facility 10-05-2024 Consult note [facility] 10-05-2024 History and physi sean note Note Date/Time October 05, 2024 7:36am [facility] Medical Records Department [address] [place] [address] History & Physical Exam 10/05/24 0733 MR#: [id number] Acct: [id number] Name: RCIARDO VILLALPANDO Rep #:[id number] : 1940 83 From: Roque Friend DO PCP: Alisson Morton DO Status:[facility] Location: [place] [address] HPI - General General Date of Admission: 10/05/24 Date of Service: 10/05/24 HPI Narrative RICARDO VILLALPANDO, is a 83 F who presents with the Chief Complaint: difficulty swallowing EGD 01.04.23 Esophageal mucosal changes consistent with [...] 08.18.24 OV She presents with staff from [facility]. Staff, Prema, is unfamiliarwith Ricardo and her GI concerns; she agrees to call the facility during my exam so that I may talk with caretakers. I spoke with Sharmila French LPN and she relayed that Ricardo has intermittent difficulties with varying food consistencies. She will do fine with regular textures and thin liquids and then she won't. Sharmila reports that Ricardo just completed ST on 7..25 without further recommendations despite nursing staff expressing concerns with her coughing while eating on occasion. Ricardo does nod her head "no" when I asked about abdominal pain and if she feels like she has difficulty chewing and swallowing. Ricardo has documented dementia and I'm uncertain of its severity. [facility] Medical History Acute bronchitis, unspecified Wears glasses Wears dentures Wears partial dentures Bladder disease Low iron Back pain Hypertension Difficulty swallowing History of hiatal hernia Gastric reflux Non-smoker Leg cramps Cardiology follow-up encounter History of CHF (congestive heart failure) History of heart attack Wears hearing aid in both ears Diabetes Dementia Dyslipidemia Iron deficiency anemia, unspecified Paroxysmal atrial fibrillation Atherosclerotic heart disease of [place] coronary artery without angina pectoris Persistent atrial fibrillation Gallstone of bile duct with gallbladder inflammation h/o throat surgery Hyperlipidemia Anemia Home Medications ?Medication ?Instructions ?Recorded ?Last Taken ?Type sertraline 50 mg tablet 50 mg PO DAILY 10/18/18 Unkn own History torsemide 20 mg tablet 20 mg PO DAILY 10/18/18 Unkn own History metformin 500 mg tablet 500 mg PO BID 05/12/22 Unkno wn History rivastigmine tartrate 3 mg capsule 3 mg PO BID 4 Unknown History mirtazapine 15 mg tablet 15 mg PO QHS 07/27/23 Unknow n History amoxicillin 875 mg-potassium 1 tab PO BID #20 tabs Unknown Rx clavulanate 125 mg tablet quetiapine 25 mg tablet 12.5 mg PO QHS 11/22/23 Unkn own History pantoprazole 20 mg tablet,delayed 20 mg PO QDAY Unknown History release Allergy/AdvReac Type Severity Reaction Status Date / Time ticagrelor (From [employer]) Allergy Shortness Verified 08/18/24 09:11 of breath Family History Other no pertinent family medical hsitory Surgical History History of esophagogastroduodenoscopy (EGD) Hx of partial thyroidectomy History of esophagogastroduodenoscopy (EGD) H/O colonoscopy H/O eye surgery H/O heart artery stent Social History Smoking Status: Never smoker ROS Constitutional Constitutional: Denies fatigue, fever(s), poor appetite, weight gain or weight loss Gastrointestinal Gastrointestinal: Denies belching, bloating, change in bowel habits, change in stool character, chewing difficulty, coffee ground emesis, constipation, cramping, diarrhea, dyspepsia, dysphagia, early satiety, excessive flatus, fecalincontinence, heartburn, hematemesis, hematochezia, hemorrhoids, loose stools, melena, nausea, odynophagia, rectal bleeding, tenesmus, vomiting or weight changes Physical Exam Const alert, oriented x3, no apparent distress and healthy appearing General Appearance: cooperative GI normal to inspection, nondistended, normoactive bowel sounds, soft to palpation,non-tender and non-distended Percussion: normal to percussion Rectal Exam: deferred Assessment & Plan Assessment/Plan (1) Esophageal stenosis: (2) Dysphagia: QUALIFIERS: Dysphagia type: esophageal phase Qualified Code(s): R13.19 - Other dysphagia PLAN: Assessment and Plan Assessment and Plan (1) Dysphagia: Status: Chronic Qualifiers: Dysphagia type: esophageal phase Qualified Code(s): R13.19 - Other dysphagia (2) Esophageal stenosis: Status: Chronic Plan RICARDO VILLALPANDO, is a 83 F who presents to the office today for FU and to scheduleEGD w/dilation. Discussed care plan with staff present and with staff MANAGER HAIR via telephone during exam. * facility will call to schedule EGD w/dilation * recommend small bites with sips of liquids * continue pantoprazole 20mg PO daily 30minutes before eating * office FU PRN 10/05/24 0736 <Electronically signed by Roque Herrera DO> Cosigner Signature (if applicable): CC: Alisson Morton DO; Roque Herrera DO~ Signed [facility] Work Phone: [phone] 363-231808-28-2025 Procedure note [facility] Medical Records Department [address] [place] [address] EGD Report MR#: [id number] Acct: [id number] Name: RICARDO VILLALPANDO Rep #:[id number] : 1940 83 From: Roque Herrera DO PCP: Alisson Morton DO Status:[facility] Patient Name: Ricardo Villalpando Procedure Date: 10/05/2024 8:39 AM Date of : 1940 Age: 83 Procedure: Upper GI endoscopy Indications: Dysphagia Providers: Roque Herrera DO Medicines: Monitored Anesthesia Care Patient Profile: This is an 83 year old female. Refer to note in patient chart for documentation of history and physical. Patient has symptoms. Her most recent EGD for dilation. Complications: No immediate complications. Procedure: Pre-Anesthesia Assessment: - Prior to the procedure, a History and Physical was performed, and patient medications and allergies were reviewed. The patient is competent. The risks and benefits of the procedure and the sedation options and risks were discussed with the patient. All questions were answered and informed consent was obtained. Patient identification and proposed procedure were verified by the physician in the pre-procedure area. Mental Status Examination: alert and oriented. Airway Examination: normal oropharyngeal airway and neck mobility. Respiratory Examination: clear to auscultation. CV Examination: normal. Prophylactic Antibiotics: The patient does not require prophylactic antibiotics. Prior Anticoagulants: The patient has taken no anticoagulant or antiplatelet agents. ASA Grade Assessment: II - A patient with mild systemic disease. After reviewing the risks and [...] the patient was re-assessed after the procedure. After obtaining informed consent, the endoscope was passed under direct vision. Throughout the procedure, the patient's blood pressure, pulse, and oxygen saturations were monitored continuously. The Endoscope was introduced through the mouth, and advanced to the second part of duodenum. The upper GI endoscopy was accomplished without difficulty. The patient tolerated the procedure well. Scope In: 8:54:24 AM Scope Out: 9:04:32 AM Total Procedure Duration Time 0 hours 10 minutes 8 seconds Findings: Mucosal changes including ringed esophagus, longitudinal furrows, small-caliber esophagus, circumferential folds and congestion (edema) were found in the entire esophagus. Biopsies were obtained from the proximal and distal esophagus with cold forceps for histology of suspected eosinophilic esophagitis. Verification of patient identification for the specimen was done. Estimated blood loss was minimal. A guidewire was placed and the scope was withdrawn. Dilation was performed with a Savary dilator with no resistance at 48 Fr. The dilation site was examined and showed moderate mucosal disruption. No gross lesions were noted in the entire examined stomach. A large hiatal hernia was present. The first portion of the duodenum was normal. Impression: - Esophageal mucosal changes secondary to eosinophilic esophagitis. Dilated. - No gross lesions in the entire stomach. - Large hiatal hernia. - Normal first portion of the duodenum. - Biopsies were taken with a cold forceps for evaluation of eosinophilic esophagitis. Recommendation: - Discharge patient to home. - Advance diet as tolerated. - Continue present medications. - Await pathology results. Procedure Code(s): --- Professional --- 46040, Esophagogastroduodenoscopy, flexible, transoral; with insertion of guide wire followed by passage of dilator(s) through esophagus over guide wire 16243, 59,51, Esophagogastroduodenoscopy, flexible, transoral; with biopsy, single or multiple CPT copyright 2021 [employer]. All rights reserved. The codes documented in this report are preliminary and upon senior trial attorney review may be revised to meet current compliance requirements. Roque Herrera DO 10/05/2024 9:18:15 AM This report has been signed electronically. Number of Addenda: 0 Note Initiated On: 10/05/2024 8:39 AM 10/05/2418 Date _ Roque Herrera DO Cosigner Signature: Date (if indicated) CC: Alisson Morton DO; Roque Herrera DO ~ Date Dictated: 10/05/2439 Date Transcribed: Ophthalmic Surgical Assistant: RF Signed [facility]08-28-2025 Procedure note [facility] Medical Records Department [address] [place] [address] Provation Physician Letter MR#: [id number] Acct: [id number] Name: RICARDO VILLALPANDO Rep #:[id number] : 1940 83 From: Roque Herrera DO PCP: Alisson Morton DO Status:[facility] 10/05/2024 Alisson Morton Re : Upper GI endoscopy procedure for Ricardo Kwasi Dear Praveen This procedure was performed on September. My impressions and recommendations are as follows: Impressions : - Esophageal mucosal changes secondary to eosinophilic esophagitis. Dilated. - No gross lesions in the entire stomach. - Large hiatal hernia. - Normal first portion of the duodenum. - Biopsies were taken with a cold forceps for evaluation of eosinophilic esophagitis. Recommendations : - Discharge patient to home. - Advance diet as tolerated. - Continue present medications. - Await pathology results. My findings are described in the full procedure note, which is enclosed. If I can be of further assistance, please feel free to contact me at . Sincerely, Roque Herrera DO 10/05/2024 9:18:15 AM This report has been signed electronically. 10/05/24917 Date _ Roque Herrera DO Cosigner Signature: Date (if indicated) CC: Alisson Morton DO; Roque Herrera DO ~ Date Dictated: 10/05/24838 Date Transcribed: Ophthalmic Surgical Assistant: RF Signed [facility]08-28-2025 Consult note [facility] Medical Records Department [address] [place] [address] Pre-Anesthesia Evaluation 10/05/24832 MR#: [id number] Acct: [id number] Name: RICARDO VILLALPANDO Rep #:[id number] : 1940 83 From: Elina collins CRNA PCP: Alisson Morton DO Status:[facility] Y Race: C Location: [place] [address] ASA Classification* ASA Classification ASA Classification: 3 Assessment & Plan Anesthesia* Anesthesia Assessment Anesthesia Assessment: Discussed sedation and/or anesthesia options, risks, benefits, and alternatives with patient/parents/legal guardian/POA. Questions invited. The patient/parents/legal guardian/POA seems to understand and agrees to proceedwith anesthesia plan. Reviewed the physical assessment, medical history, allergy history and patient home medications list prior to surgery/procedure/anesthetic and documented any changes. Performed airway and anesthesia risk assessments. Anesthesia Type Anesthesia Type: MAC History Source History Obtained from:: Patient, Chart and - (daughter, consent from POA) Anesthesia Focused Assessment* Temperature: 97.6 F Pulse Rate: 72 Blood Pressure: 102/76 Respiratory Rate: 16 Pulse Ox: 100 Oxygen Delivery Method: Room Air Airway Assessment Mouth opens: >3 cm Mallampati Score: I Teeth Condition: Dentures Neck Range of motion (ROM): Limited ROM Comment: upper and lower to come out Labs Anesthesia Preop lab: CBC WBC 5.0 K/mm3 (4.4-11.0) 09/14/24 05:15 09/14/24 RBC 3.38 M/mm3 (4.2-5.4) L 09/14/24 05:15 09/14/24 Hgb 9.7 g/dL (12.0-15.0) L 09/14/24 05:15 09/14/24 Hct 30.0 % (37-47) L 09/14/24 05:15 09/14/24 Plt Count 197 K/mm3 (150-450) 09/14/24 05:15 09/14/24 CHEMISTRY Potassium 3.9 mmol/L (3.3-5.1) 09/14/24 05:15 09/14/24 Sodium 140 mmol/L (133-145) 09/14/24 05:15 09/14/24 BUN 20 mg/dL (4-19) H 09/14/24 05:15 09/14/24 Creatinine 0.86 mg/dL (0.70-1.20) 09/14/24 05:15 09/14/24 Glucose 109 mg/dL (70-99) H 09/14/24 05:15 09/14/24 POC Glucose 126 mg/dL (74-106) H 07/30/23 06:08 07/30/23 COAG PT 14.7 SECONDS (11.7-14.9) 05/13/22 05:40 Pre-Assessment Diagnosis/Proposed Procedure Planned Operative Procedure(s): EGD Anesthesia History Anesthesia History - critical care physician assistant: Anesthesia History - critical care physician assistant Hx Hospitalization Yes: 06/2022 LOWER LEGS EDEMA 08/27/24 10:39 Any Problems With Anesthesia No 08/27/24 10:39 Cholinesterase deficiency No 08/27/24 10:39 You/Your Family Experience No 08/27/24 10:39 fever (hyperthermia) with Relationship Recent Exposure to Contagious No 10/05/24 08:07 Disease Does patient have nerve No 10/05/24 07:47 stimulator Patient instructed to have device shut off --Does patient have Pacemaker No 10/05/24 08:07 or ICD? When Was Last Pacemaker Check QUESTION #4 FULL TEXT: You/Your Family Experience fever (hyperthermia) with Anesthesia Last Oral Intake Last Oral intake: Last Oral Intake NPO since 00:00 10/05/24 08:07 Meds taken in AM with sips of water? Meds patient instructed to take am of surgery PONV PONV - critical care physician assistant: PONV - critical care physician assistant Female Yes 10/05/24 07:47 HX of Motion Sickness No 10/05/24 07:47 HX of N/V After Surgery No 10/05/24 07:47 Non-Smoker Yes 10/05/24 07:47 Duration of Surgery greater No 10/05/24 07:47 than 60 minutes Number of Risk Factors 2 10/05/24 07:47 PONV Score Moderate Risk 10/05/24 07:47 Height & Weight Height & Weight: Anesthesia: Height & Weight Height 5 ft 10/05/24 08:07 Weight: 42 kg 10/05/24 08:07 Body Mass Index (BMI) 18.1 10/05/24 08:07 Respiratory Assessment Respiratory Assessment - critical care physician assistant: Respiratory Tract Infection Hx - critical care physician assistant Hx Respiratory Tract Infection No 08/27/24 10:39 STOP Sleep Apnea STOP Sleep Apnea - critical care physician assistant: STOP Sleep Apnea - critical care physician assistant Hx Hypertension Yes 10/05/24 07:47 Hx Sleep Apnea No 10/05/24 07:47 CPAP BIPAP Do you snore loudly (louder No 10/05/24 07:47 than talking or can be heard Do you often feel tired/ No 10/05/24 07:47 fatigued/ sleepy during daytime? Has anyone observed you stop No 10/05/24 07:47 breathing during sleep? STOP Results Negative 10/05/24 07:47 QUESTION #5 FULL TEXT : Do you snore loudly (louder than talking or can be heard through closeddoors)? Tobacco Use History Tobacco Use History - critical care physician assistant: Tobacco Use History - critical care physician assistant Tobacco Use Smoking Status Never smoker 10/05/24 07:47 Hx Tobacco Use No 10/05/24 07:47 Years Smoking Packs Smoked per Day Smoking Cessation Date was within the last 15 years Hx Smoking Cessation Date Hx Smoking Cessation Counseling Hematologic Medial History Hematologic Hx - critical care physician assistant: Hematologic Medical Hx - audio technician Hx of Blood Transfusion Hx of Transfusion in last 3 Months Date of Last Transfusion (if within last 3 months) Ever experience any problems with transfusion(s)? Specify any problems Hx of Preganancy in last 3 Months Nurse Filling Out Transfusion & Questions: Date: Time: Patient unable to answer at Yes 10/05/24 07:47 this time (ie. confused, unrespo /Reproduction History /Reproductive History - critical care physician assistant: /Reproductive Hx- critical care physician assistant Hx Now No 10/05/24 07:47 Gestational Age (in weeks): EDC: Hx Hx Para Hx Section SAB No 10/05/24 07:47 Active Medications Active Medications: Current Medications Generic Name Dose Route Start Last Admin Trade Name Freq PRN Reason Stop Dose Admin Lactated Ringer's 1,000 mls @ 15 mls/hr 10/05/24 07:30 IV .Q48H MATEUS PFSH Medical History Anxiety Depression Constipation Acute bronchitis, unspecified Wears glasses Wears dentures Wears partial dentures Bladder disease Low iron Back pain Hypertension Difficulty swallowing History of hiatal hernia Gastric reflux Non-smoker Leg cramps Cardiology follow-up encounter History of CHF (congestive heart failure) History of heart attack Wears hearing aid in both ears Diabetes Dementia Dyslipidemia Iron deficiency anemia, unspecified Paroxysmal atrial fibrillation Atherosclerotic heart disease of [place] coronary artery without angina pectoris Persistent atrial fibrillation Gallstone of bile duct with gallbladder inflammation h/o throat surgery Hyperlipidemia Anemia Home Medications ?Medication ?Instructions ?Recorded ?Last Taken ?Type sertraline 50 mg tablet 50 mg PO DAILY 10/18/18 Unkn own History torsemide 20 mg tablet 20 mg PO DAILY 10/18/18 Unkn own History metformin 500 mg tablet 500 mg PO BID 05/12/22 Unkno wn History rivastigmine tartrate 3 mg capsule 3 mg PO BID 4 Unknown History mirtazapine 15 mg tablet 15 mg PO QHS 07/27/23 Unknow n History quetiapine 25 mg tablet 25 mg PO .qam 11/22/23 Unkno wn History pantoprazole 20 mg tablet,delayed 20 mg PO QDAY Unknown History release acetaminophen 500 mg capsule 500 mg PO Q4H PRN pain Unknown History magnesium hydroxide 400 mg/5 mL 5 ml PO DAILY PRN cons tipation 10/05/24 Unknown History oral suspension (Milk of Magnesia) quetiapine 50 mg tablet (Seroquel) 50 mg PO DAILY 09/09 10/02 Unknown History Allergy/AdvReac Type Severity Reaction Status Date / Time ticagrelor (From Brilinta) Allergy Shortness Verified 10/05/24 08:06 of breath Family History Other no pertinent family medical hsitory Family History unable to obtain Surgical History History of esophagogastroduodenoscopy (EGD) Hx of partial thyroidectomy History of esophagogastroduodenoscopy (EGD) H/O colonoscopy H/O eye surgery H/O heart artery stent Social History Smoking Status: Never smoker Review of Systems (Anesthesia) ROS Narrative System reviewed and no additional complaints, except as documented. 10/05/24 08 randa ZALDIVAR> Date _ Elina Alexander CRNA Cosigner Signature: Date CC: ~ Signed [facility]08-28-2025 History and physical note [facility] Medical Records Department [address] [place] [address] History & Physical Exam 10/05/2433 MR#: [id number] Acct: [id number] Name: RICARDO VILLALPANDO Rep #:[id number] : 1940 83 From: Roque Herrera DO PCP: Alisson Morton DO Status:[facility] Location: [place] [address] HPI - General General Date of Admission: 10/05/24 Date of Service: 10/05/24 HPI Narrative RICARDO VILLALPANDO, is a 83 F who presents with the Chief Complaint: difficulty swallowing EGD 01.04.23 Esophageal mucosal changes consistent with eosinophilic esophagitis. Moderate Schatzkiring. Dilated. Large hiatal hernia. Bile gastritis. No gross lesions in the duodenal bulb. Biopsieswere taken with a cold forceps for evaluation of eosinophilic esophagitis. OV 6. Pt's daughter states that pt is doing [...] 08.18.24 OV She presents with staff from [facility]. Staff, Prema, is unfamiliarwith Ricardo and AlineI concerns; she agrees to call the facility during my exam so that I may talk with caretakers. I spoke with Sharmila French LPN and she relayed that Ricardo has intermittent difficulties with varying food co nsistencies. She will do fine with regular textures and thin liquids and then she won't. Sharmila reports that Ricardo just completed ST on 08.08.24 without further recommendations despite nursing staff expressing concerns with her coughing while eating on occasion. Ricardo does nod her head "no" when I asked about abdominal pain and if she feels like she has difficulty chewing and swallowing. Ricardo has documented dementia and I'm uncertain of its severity. [facility] Medical History Acute bronchitis, unspecified Wears glasses Wears dentures Wears partial dentures Bladder disease Low iron Back pain Hypertension Difficulty swallowing History of hiatal hernia Gastric reflux Non-smoker Leg cramps Cardiology follow-up encounter History of CHF (congestive heart failure) History of heart attack Wears hearing aid in both ears Diabetes Dementia Dyslipidemia Iron deficiency anemia, unspecified Paroxysmal atrial fibrillation Atherosclerotic heart disease of [place] coronary artery without angina pectoris Persistent atrial fibrillation Gallstone of bile duct with gallbladder inflammation h/o throat surgery Hyperlipidemia Anemia Home Medications ?Medication ?Instructions ?Recorded ?Last Taken ?Type sertraline 50 mg tablet 50 mg PO DAILY 10/18/18 Unkn own History torsemide 20 mg tablet 20 mg PO DAILY 10/18/18 Unkn own History metformin 500 mg tablet 500 mg PO BID 05/12/22 Unkno wn History rivastigmine tartrate 3 mg capsule 3 mg PO BID 4 Unknown History mirtazapine 15 mg tablet 15 mg PO QHS 07/27/23 Unknow n History amoxicillin 875 mg-potassium 1 tab PO BID #20 tabs Unknown Rx clavulanate 125 mg tablet quetiapine 25 mg tablet 12.5 mg PO QHS 11/22/23 Unkn own History pantoprazole 20 mg tablet,delayed 20 mg PO QDAY Unknown History release Allergy/AdvReac Type Severity Reaction Status Date / Time ticagrelor (From Brilinta) Allergy Shortness Verified 08/18/24 09:11 of breath Family History Other no pertinent family medical hsitory Surgical History History of esophagogastroduodenoscopy (EGD) Hx of partial thyroidectomy History of esophagogastroduodenoscopy (EGD) H/O colonoscopy H/O eye surgery H/O heart artery stent Social History Smoking Status: Never smoker ROS Constitutional Constitutional: Denies fatigue, fever(s), poor appetite, weight gain or weight loss Gastrointestinal Gastrointestinal: Denies belching, bloating, change in bowel habits, change in stool character, chewing difficulty, coffee ground emesis, constipation, cramping, diarrhea, dyspepsia, dysphagia, earlysatiety, excessive flatus, fecalincontinence, heartburn, hematemesis, hematochezia, hemorrhoids, loose stools, melena, nausea, odynophagia, rectal bleeding, tenesmus, vomiting or weight changes Physical Exam Const alert, oriented x3, no apparent distress and healthy appearing General Appearance: cooperative GI normal to inspection, nondistended, normoactive bowel sounds, soft to palpation,non-tender and non-distended Percussion: normal to percussion Rectal Exam: deferred Assessment & Plan Assessment/Plan (1) Esophageal stenosis: (2) Dysphagia: QUALIFIERS: Dysphagia type: esophageal phase Qualified Code(s): R13.19 - Other dysphagia PLAN: Assessment and Plan Assessment and Plan (1) Dysphagia: Status: Chronic Qualifiers: Dysphagia type: esophageal phase Qualified Code(s): R13.19 - Other dysphagia (2) Esophageal stenosis: Status: Chronic Plan RICARDO VILLALPANDO, is a 83 F who presents to the office today for FU and to scheduleEGD w/dilation. Discussed care plan with staff present and with staff MANAGER HAIR via telephone during exam. * facility will call to schedule EGD w/dilation * recommend small bites with sips of liquids * continue pantoprazole 20mg PO daily 30minutes before eating * office FU PRN 10/05/24 0736 Cosigner Signature (if applicable): CC: Alisson Morton DO; Roque Herrera DO~ Signed [facility]08-28-2025 [facility] Medical Records Department [address] [place] [address] History Physical Exam 10/05/24 0733 MR#: [id number] Acct: [id number] Name: RICARDO VILLALPANDO Rep #: [id number] : 1940 83 From: Roque eHrrera DO PCP: Alisson Morton DO Status:[facility] Location: [place] [address] HPI - General General Date of Admission: 10/05/24 Date of Service: 10/05/24 HPI Narrative RICARDO VILLALPANDO, is a 83 F who presents with the Chief Complaint: difficulty swallowing EGD 01.04.23 Esophageal mucosal changes consistent with eosinophilic esophagitis. Moderate Schatzki ring. Dilated. Large hiatal hernia. Bile gastritis. No gross lesions in the duodenal bulb. Biopsies were taken with a cold forceps for evaluation of eosinophilic esophagitis. OV 6..24 Pt's daughter states that pt is doing well, but has really slowed down with her eating; pt's daughter states it takes her an hour to eat a sandwich. BM are normal. Continues with omeprazole. 24 EGD - Benign-appearing esophageal stenosis(endoscope could not [...] 08.18.24 OV She presents with staff from [facility]. Staff, Prema, is unfamiliar with Ricardo and [...] on occasion. Ricardo does nod her head "no" when I asked about abdominal pain and if she feels like she has difficulty chewing and swallowing. Ricardo has documented dementia and I'm uncertain of its severity. [facility] Medical History Acute bronchitis, unspecified Wears glasses Wears dentures Wears partial dentures Bladder disease Low iron Back pain Hypertension Difficulty swallowing History of hiatal hernia Gastric reflux Non-smoker Leg cramps Cardiology follow-up encounter History of CHF (congestive heart failure) History of heart attack Wears hearing aid in both ears Diabetes Dementia Dyslipidemia Iron deficiency anemia, unspecified Paroxysmal atrial fibrillation Atherosclerotic heart disease of [place] coronary artery without angina pectoris Persistent atrial fibrillation Gallstone of bile duct with gallbladder inflammation h/o throat surgery Hyperlipidemia Anemia Home Medications ???Medication ???Instructions ???Recorded ???Last Taken ???Type sertraline 50 mg tablet 50 mg PO DAILY 10/18/18 Unknown Hi story torsemide 20 mg tablet 20 mg PO DAILY 10/18/18 Unknown Hi story metformin 500 mg tablet 500 mg PO BID 05/12/22 Unknown His tory rivastigmine tartrate 3 mg capsule 3 mg PO BID 04/04/23 Unknown His tory mirtazapine 15 mg tablet 15 mg PO QHS 07/27/23 Unknown Hist ory amoxicillin 875 mg-potassium 1 tab PO BID #20 tabs 11/22/23 Unk nown Rx clavulanate 125 mg tablet quetiapine 25 mg tablet 12.5 mg PO QHS 11/22/23 Unknown Hi story pantoprazole 20 mg tablet,delayed 20 mg PO QDAY 08/18/24 Unknown Hi story release Allergy/AdvReac Type Severity Reaction Status Date / Time ticagrelor (From Brilinta) Allergy Shortness Verified 08/18/24 09:11 of breath Family History Other no pertinent family medical hsitory Surgical History History of esophagogastroduodenoscopy (EGD) Hx of partial thyroidectomy History of esophagogastroduodenoscopy (EGD) H/O colonoscopy H/O eye surgery H/O heart artery stent Social History Smoking Status: Never smoker ROS Constitutional Constitutional: Denies fatigue, fever(s), poor appetite, weight gain or weight loss Gastrointestinal Gastrointestinal: Denies belching, bloating, change in bowel habits, change in stool character, chewing difficulty, coffee ground emesis, constipation, cramping, diarrhea, dyspepsia, dysphagia, early satiety, excessive flatus, fecal incontinence, heartburn, hematemesis, hematochezia, hemorrhoids, loose stools, melena, nausea, odynophagia, rectal bleeding, tenesm (more content not included)...[facility]07-11-2025 History of Present illness Narrative* Toni Bey MD - 08/18/2024 2:30 PM EDT [facility] Medical [facility] Cardiology [facility] - [address] [facility] [address] Dept: [phone] Dept Visit type: Established : 1940 Chief Complaint: Chief Complaint Patient presents with 1 Year Follow-up Coronary Artery Disease History of Present Illness: Ricardo Villalpando is a 83 y.o. female who is here in follow-up with her daughter. She has advanced dementia. She now lives in a long-term. There have not been complaints of chest [...] BUN 18 (H) 09/24/2022 [facility] Results Component Value Date CHOL 143 [...] and Plan: 1. Coronary artery disease involving [place] coronary artery of [place] heart without angina pectoris 2. Persistent atrial fibrillation (HCC) 3. Mixed hyperlipidemia 1. Coronary artery disease: She has a history of remote stenting. She is doing well with no symptoms of angina per the long-term. Continued medical therapy is recommended. 2. History [...] TUBAL LIGATION 1989 UPP[facility]INAL [facility] [3] Family History Problem Relation Name Age [...] Take 30 mL by mouth Nightly., Disp: ,Rfl: metFORMIN (Glucophage) 500 MG tablet, Take 500 [...] 08/18/2024), Disp: , Rfl: documented in this [facility]07-11-2025 Evaluation note* Diagnosis Onset Date Resolution Status Admit Date Dysphagia chronic August 18 9:09am Esophageal stenosis chronic August 18, 2024 9:09am [facility] Work Phone: 1(550) 991-616307-11-2025 Evaluation note* Diagnosis Onset Date Resolution Status Admit Date Dysphagia chronic August 18 9:09am Esophageal stenosis chronic August 18, 2024 9:09am Dysphagia chronic October 05, 2 025 7:18am Esophageal stenosis chronic Augus t 2024 7:18am [facility] Work Phone: 1(153) 747-887107-10-2024 History of Present illness Narrative* Toni Bey MD - 08/18/2023 11:00 AM EDT [facility] Cardiology [facility] C[facility]OLOG[facility] [address] [facility] [facility] [address] Dept: [phone] Dept Visit type: Established : 1940 Chief [...] TUBAL LIGATION 1989 UPPER GASTROINTESTINAL ENDOSCOPY [facility]/08/[facility] Family History Family History Problem Relation Name [...] and Plan: 1. Coronary artery disease involving [place] coronary artery of [place] heart without angina pectoris 2. Persistent atrial [...] already stopped her statin. documented in this encounterSOhio State East [id number] Telephone encounter Note* Telephone Encounter - Olivia Leigh - 07/27/2023 9:00 AM EDT Form signed and faxed back to [phone]. Form uploaded to [email or web address]. [facility] [id number] Miscellaneous Notes* Telephone Encounter - Olivia Leigh - 07/27/2023 9:00 AM EDT Form signed and faxed back to [phone]. Form uploaded to [email or web address]. * Telephone Encounter - Olivia Leigh - 07/23/2023 4:20 PM EDT Received form from [facility] for cardiac clearance for EGD with MAC sedation. Form and last OV given to nurse. documented in this [facility]06-14-2024 Telephone encounter Note* Telephone Encounter - Olivia Leigh - 07/23/2023 4:20 PM EDT Received form from [facility] for cardiac clearance for EGD with MAC sedation. Form and last OV given to nurse. [facility] [id number] Miscellaneous Notes* Telephone Encounter - Olivia Leigh - 07/23/2023 4:20 PM EDT Received form from [facility] for cardiac clearance for EGD with MAC sedation. Form and last OV given to nurse. documented in this encounterSOhio State East [id number] Telephone encounter Note* Telephone Encounter - Sharmila Connell RN - 07/20/2023 7:29 AM EDT S: Patient's daughter Margarita spoke with CAC nurse regarding fall. B: [...] [2] no injury Protocols used: Falls and [id number] [facility] [id number] Miscellaneous Notes* Telephone Encounter - Sharmila Connell RN - 07/20/2023 7:29 AM EDT S: Patient's daughter Margarita spoke with CAC nurse regarding fall. B: [...] [2] no injury Protocols used: Falls and [id number] documented in this encounterSOhio State East [id number] Telephone encounter Note* Telephone Encounter - Olivia Leigh - 04/14/2023 12:37 PM EST Patient is scheduled to see JDR on 08/18/23. [facility] [id number] Miscellaneous Notes* Telephone Encounter - Olivia Leigh - 04/14/2023 12:37 PM EST Patient is scheduled to see JDR on 08/18/23. * Telephone Encounter - Barbi Horton RN - 04/12/2023 1:01 PM EST BEATRIS: 08/25/22, Labs: 09/24/22 documented in this [facility]03-04-2024 Telephone encounter Note* Telephone Encounter - Barbi Horton RN - 04/12/2023 1:01 PM EST BEATRIS: 08/25/22, Labs: 09/24/22 [facility] [id number] Miscellaneous Notes* Telephone Encounter - Barbi Horton RN - 04/12/2023 1:01 PM EST BEATRIS: 08/25/22, Labs: 09/24/22 documented in this [facility]02-25-2024 History of Present illness Narrative* Billie [...] her to the ER. documented in [facility]Pro[facility]11-27-2023 History and physical note Author Roque Friend [facility] January 04, 2023 11:21am Note Date/Time January 04, 2023 11:21am [facility] Medical Records Department [address] [place] [address] History & Physical Exam 01/04/23 1120 MR#: [id number] Acct: [id number] Name: KWASIRICARDO Rep #:[id number] : 1940 82 From: Roque Herrera DO PCP: Alisson Morton DO Status:[facility] Location: [address] History and Physical Date of Admission: 01/04/23 [...] swallow liquids.? Her last dilatation was in [place]. ?Imaging demonstrates a large hiatal hernia. [facility] Medical History (Updated 05/12/22 @ 18:[address] Nevarez Friend, DO) Anemia Atherosclerotic heart disease of [place] coronary artery without angina pectoris Dementia Diabetes [...] (Auto) 70.4 H, Lymph % (Auto) 17.0 L,[place] % (Auto) 8.8, Eos % (Auto) 2.9, [...] DO> Cosigner Signature (if applicable): CC: Alisson Morton, DO; Roque Herrera, DO~ Signed [facility] Work Phone: 1(793) 232-119711-27-2023 Procedure [facility] 01-04-2023 Procedure [facility]11-02-2023 Telephone encounter Note* Telephone Encounter - Olivia Leigh - 12/10/2022 1:03 PM EDT Form signed and faxed back to [phone] on 12/10/22. Form uploaded to [email or web address]. [facility] [id number] Miscellaneous Notes* Telephone Encounter - Olivia Leigh - 12/10/2022 1:03 PM EDT Form signed and faxed back to [phone] on 12/10/22. Form uploaded to [email or web address]. * Telephone Encounter - Olivia Leigh - 12/09/2022 2:03 PM EDT Received fax from [facility] for cardiac clearance for EGD on 01/04/23. Form and last OV given to nurse. documented in this encounterSOhio State East HospitalWyabdi63-34-4503 Telephone encounter Note* Telephone Encounter - Olivia Leigh - 12/09/2022 2:03 PM EDT Received fax from [facility] for cardiac clearance for EGD on 01/04/23. Form and last OV given to nurse. [facility] [id number] Miscellaneous Notes* Telephone Encounter - Olivia Leigh - 12/09/2022 2:03 PM EDT Received fax from [facility] for cardiac clearance for EGD on 01/04/23. Form and last OV given to nurse. documented in this encounterSOhio State East HospitalEgkuzr77-41-3072 Discharge summary Author Ami Thayer [facility] October 21, 2022 1:29pm Note Date/Time October 21, 2022 1:29pm [facility] Physical Therapy [facility] [address] [place] [address] / REHABILITATION SERVICES DISCHARGE SUMMARY MR#: [id number] Acct: [id number] Name: RICARDO VILLALPANDO Rep #: [id number] : 1940 82 From: Ami Thayer PT, Cert. MDT Referring Dr.: Alisson Morton DO Status: REG RCR Insurance: MEDICARE PART A B [facility] Discharge Summary D/C summary: It has been [...] please feel free to call me at [phone]. Thank you for the referral of this patient. Sincerely, Ami Thayer, PT, Cert MDT Balance/Gait/Functional tests Balance/Special Test Scores Oswestry Low Back Score: 5 TUG Test Time Seconds: 11.53 Tug Test: <20 sec.=mostly independent 30 Second Chair Rise Test Seconds: 12 Improvement % Improvement: 98 <Electronically signed by Ami Thayer PT, Cert. MDT> 10/21/22 1329 CC: Alisson Morton, DO ~ ABIGAIL Signed [facility] Work Phone: 1(434) 113-493408-17-2023 Miscellaneous Notes* Result Encounter Note - Cheryl [...] was admitted in June with this issue. [facility] Phone: 1(999) 416-348108-07-2023 Miscellaneous Notes* Result Encounter Note - Cheryl [...] or concerns. Thank you, Cheryl Lopez PA-C [facility] Phone: 1(260) 763-472607-18-2023 NoteSinus Rhythm -Poor R-wave progression -may be secondary to pulmonary disease consider old anterior infarct. Low voltage with rightward P-axis and rotation -possible pulmonary disease. ABNORMAL [facility] [id number] NoteSinus Rhythm -Poor R-wave progression -may be secondary to pulmonary disease consider old anterior infarct. Low voltage with rightward P-axis and rotation -possible pulmonary disease. ABNORMAL [facility] [id number] History of Present illness Narrative* Toni Bey MD - 08/25/2022 10:00 AM EDT [facility] Cardiology [facility] CARDIOLOGY [address] [facility] [address] Dept: [phone] Dept Visit type: Established : 1940 Chief [...] TUBAL LIGATION 1989 UPPER GASTROINTESTINAL ENDOS[facility] Family History Family History Problem Relation Name [...] and Plan: 1. Coronary artery disease involving [place] coronary artery of [place] heart without angina pectoris 2. Persistent atrial [...] Patient now scheduled with JDR on 08/25/22. [facility] [id number] Miscellaneous Notes* Telephone Encounter - Olivia Leigh [...] (next OV 02/20/21 not scheduled) CMP 06/16/22 [facility] [id number] Note* Care Coordination - Alex Delatorre - 06/16/2022 3:28 PM EDT Discharge med list, MAR and covid transfer information transmitted to [facility] via [facility] per TCC request. 7000 completed in HENS. Facility is aware. [facility] [id number] Note* Care Coordination - Alex Delatorre - 06/16/2022 3:28 PM EDT Discharge med list, MAR and covid transfer information transmitted to [facility] via Careport per TCC request. 7000 completed in HENS. Facility is aware. [facility] [id number] Miscellaneous Notes* Care Coordination - Alex Delatorre - 06/16/2022 3:28 PM EDT Discharge med list, MAR and covid transfer information transmitted to [facility] via Careport per TCC request. 7000 completed in HENS. Facility is aware. * Care Coordination - Unknown Case Management - 06/16/2022 3:17 PM EDT Patient Choice Patient Name: RICARDO VILLALPANDO Date of : 1940 All Providers Sent Referral Name: [facility] Phone: [phone] Address: [address] [place] [address] * Care Coordination - Vika Thompson RN - 06/16/2022 2:59 PM EDT Task sent to [facility] via [facility] Plans to complete 7000 and send it with dc paperwork and Covid results to [facility]. . * Care Coordination - MARA Garcia - 06/16/2022 2:12 PM EDT Dc transportation arranged for 5:00 to [facility] in [place]. Spoke with patients daughter via phone to discuss the dc arrangements and the bead picker time. Ambulance transport form completed. * Care Coordination - Alex Delatorre - 06/16/2022 11:02 AM EDT Referral placed to SNF- [facility] via [facility] per TCC request. Await review and response regarding ability to accept. TCC notified. * Care Coordination - Vika Thompson RN - 06/16/2022 10:54 AM EDT Images from the original note were not included. Care Management Progress Note Secure message from Dr. Morton patient is ready for SNF placement. Daughter, Margarita, called and gave choice of [facility] in [place]. Task sent to [facility] via PrintLess Plansto place referral to above. Will watch for [...] PM EDT Patient is currently active with [facility]. The patients current certification period will on 07/31/2022. The patient is currently receiving PT/OT/ST services through the agency. Aircraft Mechanic to continue to follow. Placed in care port and [facility] * Care Coordination - Josey Mckeon RN - 06/13/2022 4:28 PM EDT Care Managment Initial Assessment Date: 06/13/2022 Patient Name: Ricardo Villalpando : 1940 Patient Information Source of Information: Patient, Patient Range Mounter Name/Contact Information: MARGARITA RIVAS [phone] DAUGHTER AND DAUGHTER YAZ DAVIS [phone] Cognition/Language: WFL - Within Functional Limits Permission given to speak with patient client support representative/caregiver as indicated: Yes Confirmation of Payer with patient/family: Yes Payer Name: MMO : No Confirmation of Primary Care Physician: Confirmed PCP Name: DR. MORTON Seen in last 2 years?: Yes Primary Caregiver: Family If assistance needed, confirmed caregiver ready, willing and able to care for patient at discharge:Yes Confirmed with: AKI CATALAN Living Arrangements Current Residence: ([facility] Number of Floors 1 Number of Entry Steps: 2 Bed/Bath Levels: Both first floor Facility: Facility Name: NA Plan to Return: Yes Lives with: Alone Support Systems: Children, Family members, Home care staff, Comments (Other) ([facility]) Activities of Daily Living Ambulation: Independent Bathing/Dressing: Independent Elimination/Continence/Toileting: Independent Feeding: Independent Who Assists with Activities of Daily Living: NA Instrumental Activities of Daily Living Prescription Coverage: Yes Pharmacy Used: [facility] Medication Management: Prescription pick-up Who assists with medication securing and setup?: DAUGHTER SECURES AND SETS UP MEDS Transportation/Shopping: Assistance Provider Transportation/Shopping Assistance Provider Name: [facility] Transportation Mode: Car, Senior/disability transport service [...] status from home with anemia. Admitted to [facility]. Admissions orders are pending. Discharge preparation checklist reviewed with patient and her daughter Margarita. [facility] [place] [facility] [place] her daughter and son in law. Is active with the [facility]F 730-330pm. Her daughter states she has occupational therapy that was seeing her at [facility] and was going to start with ST for swallowing. hospital liaison updated via [facility] and is following. Daughter uncertain if through [facility] or [facility]. Daughter assists patient with all household tasks and patient is independent in her adls. Does not anticipate any needs upon discharge and tentative discharge plan is home with resumption of previous services when medically stable. Will likely need pt/ot evals to assist with dc planning needs. .. Josey Mckeon RN documented in this encounterSOhio State East HospitalEqvrcr00-43-1043 Note* Care Coordination - Unknown Case Management - 06/16/2022 3:17 PM EDT Patient Choice Patient Name: RICARDO VILLALPANDO Date of : 1940 All Providers Sent Referral Name: [facility] Phone: [phone] Address: [address] [place] [address] [facility] [id number] Note* Care Coordination - Unknown Case Management - 06/16/2022 3:17 PM EDT Patient Choice Patient Name: RICARDO VILLALPANDO Date of : 1940 All Providers Sent Referral Name: [facility] Phone: [phone] Address: [address] [place], [place] [id number] [facility] [id number] Note* Care Coordination - Vika Thompson RN - 06/16/2022 2:59 PM EDT Task sent to [facility] via [facility] Plans to complete 7000 and send it with dc paperwork and Covid results to [facility]. . [facility] CenterFylkik19-55-3055 Note* Care Coordination - Vika Thompson RN - 06/16/2022 2:59 PM EDT Task sent to [facility] via [facility] Plans to complete 7000 and send it with dc paperwork and Covid results to [facility]. . [facility] CenterLlmyik08-50-2833 Note* Care Coordination - MARA Garcia - 06/16/2022 2:12 PM EDT Dc transportation arranged for 5:00 to [facility] in [place]. Spoke with patients daughter via phone to discuss the dc arrangements and the bead picker time. Ambulance transport form completed. [facility] CenterKnzwox01-57-3840 Note* Care Coordination - MARA Garcia - 06/16/2022 2:12 PM EDT Dc transportation arranged for 5:00 to [facility] in [place]. Spoke with patients daughter via phone to discuss the dc arrangements and the bead picker time. Ambulance transport form completed. [facility] [id number] History of Present illness Narrative* Kerri Steve BessieASHLY - 06/16/2022 2:08 PM EDT Occupational Therapy Facility/Department: [facility] 1E Occupational Therapy Treatment NAME: Ricardo Villalpando : 1940 Date of Service: 06/16/2022 Discharge Recommendations: Subacute/Detention Facility, Continue to assess pending progress (vs [facility] with 24 hr SUP) Assessment REQUIRES OT [...] recent events, Decreased short term memory, Decreased jail memory Safety Judgement: Decreased awareness of need [...] Daily Activity Raw Score: 18 ADL Inpatient [facility] G-Code Modifier: CK Goals Encounter Problems [...] 06/16/2022 11:26 AM EDT Physical Therapy Facility/Department: [facility] Physical Therapy Daily Treatment Note NAME: Ricardo Villalpando : 1940 Date of Service: 06/16/2022 Discharge Recommendations: Subacute/Detention Facility, Continue to assess pending progress (vs [facility] with 24 hr SUP) PT Equipment Recommendations [...] recent events, Decreased short term memory, Decreased chief executive memory Safety Judgement: Decreased awareness of need [...] Minutes (gait x1) Antonio Jimenez PT * eJrsey Rollins MD - 06/15/2022 11:10 AM EDT [...] 06/14/2022 3:11 PM EDT Physical Therapy Facility/Department: [address] Physical Therapy Initial Evaluation NAME: Ricardo Villalpando : 1940 Date of Service: 06/14/2022 Discharge Recommendations: Subacute/Detention Facility PT Equipment Recommendations Equipment Needed: No [...] recent events, Decreased short term memory, Decreased jail memory Safety Judgement: Decreased awareness of need [...] Device: rolling walker Transfer Assistance: Independent Active Collection Clerk: No Patient's Collection Clerk Info: Per pt report her daughter drives her. Additional Comments: Leanna attend [facility] during day ,adult day care Objective Observation/Palpation [...] Inpatient Mobility Raw Score: 17 Mobility Inpatient CMS G-Code Modifier: CK Goals [...] 06/14/2022 1:51 PM EDT Occupational Therapy Facility/Department: [address] Occupational Therapy Initial Evaluation NAME: Ricardo Villalpando : 1940 Date of Service: 06/14/2022 Discharge Recommendations: Subacute/Detention Facility OT Equipment Recommendations Equipment Needed: No [...] recent events, Decreased short term memory, Decreased jail memory Safety Judgement: Decreased awareness of need [...] Device: rolling walker Transfer Assistance: Independent Active Collection Clerk: No Patient's Collection Clerk Info: Per pt report her daughter drives [...] Daily Activity Raw Score: 18 ADL Inpatient [facility] G-Code Modifier: CK Goals Encounter Problems [...] 06/16/2022 11:02 AM EDT Referral placed to [facility] request. Await review and response regarding ability to accept. TCC notified. [place] [id number] Note* Care Coordination - Alex Delatorre - 06/16/2022 11:02 AM EDT [facility] [facility] TCC request. Await review and response regarding ability to accept. TCC notified. [facility] CenterKvkjep05-28-7389 Note* Care Coordination - Vika Thompson RN - 06/16/2022 10:54 AM EDT Images from the original note were not included. Care Management Progress Note Secure message from Dr. Morton patient is ready for SNF placement. Daughter, Margarita, called and gave choice of [facility] in [place]. Task sent to [facility] via Careportto place referral to above. Will [...] Length of Stay (Days): 3 GMLOS: 2.7 T [facility] [id number] Note* Care Coordination - Vika Thompson RN - 06/16/2022 10:54 AM EDT Images from the original note were not included. Care Management Progress Note Secure message from Dr. Morton patient is ready for SNF placement. Daughter, Margarita, called and gave choice of [facility] in [place]. [facility] to above. Will watch for [...] Length of Stay (Days): 3 GMLOS: 2.7 [facility] [id number] Nurse Note* Fiordaliza Del Castillo RN - 06/16/2022 6:04 AM EDT This nurse attempted to call both of the patients' daughters at this time to obtain a breakfast order for the patient. Both numbers went straight to voicemail. [facility] [id number] Nurse Note* Fiordaliza Del Castillo RN - [...] applied, incontinence brief, and pillowed positioning. ] [facility] CenterGamyky05-51-5631 Plan of care note* Care Plan - [...] integrity is maintained or improved Outcome: Progressing [facility]05-08-2023 Note* Care Coordination - Vika Thompson RN [...] Length of Stay (Days): 2 GMLOS: 2.7 [facility]05-08-2023 Note* Care Coordination - Vika Thompson RN [...] Length of Stay (Days): 2 GMLOS: 2.7 [facility] [id number] Plan of care note* Care Plan - [...] to address these barriers include increase mobility. [facility] CenterSdkykj72-78-9830 Consult note* Jersey Rollins MD - 06/14/2022 1:43 PM EDTAssociated Order(s): Inpatient consult to Gastroenterology Images from the original note were not included. GI CONSULTATION Patient: Ricardo Villalpando : 1940 Primary Care Physician: Lu [...] TUBAL LIGATION 1989 UPPER GASTROINTESTINAL ENDOSCOPY [facility] FAMILY HISTORY: Family History Problem Relation Name [...] Do not swallow.. 02/27/22 02/27/23 Gin Finn, FUNERAL DRIVER - JAVA SPRING DEVELOPER Lancets (OneTouch Delica) lancets 30G TEST SUGAR [...] capsule by mouth daily. 11/14/18 Historical ProviderMD Cross Ultra test strip TEST SUGAR ONCE A [...] have not been requested. CBC: Recent Labs 05/06144206/14/22 0531 WBC 6.9 4.6 HGB 9.5* 8.9* [...] ischemic and atrophic changes. Report Dictated on Workstation: [id number] Electronically Signed By: Niko Talley Electronically Signed Date/Time: 06/13/2022 3:16 PM EDT XR pelvis 1 or 2 views Result Date: 06/13/2022 Patient Name: RICARDO VILLALPANDO : 1940 [id number] Date/Time: 06/13/2022 15:21 Procedure: XR PELVIS 1-2 [...] am labs Continue to monitor Hgb closely [facility] [id number] Consult note* Jersey Rollins MD - 06/14/2022 1:43 PM EDTAssociated Order(s): Inpatient consult to Gastroenterology Images from the original note were not included. GI CONSULTATION Patient: Ricardo Villalpando : 1940 Primary Care Physician: Lu [...] 1989 UPPER GASTROINTESTINAL ENDOSCOPY 08/08/[address] [facility] FAMILY HISTORY: Family History Problem Relation Name [...] TAKE 1 TABLET BY MOUTH NIGHTLY 12/15/21 Toin Bey MD atorvastatin (Lipitor) 80 MG tablet Take 1 tablet by mouth Nightly. 11/11/21 Historical Provider, clopidogrel (Plavix) 75 MG tablet Take 75 mg by mouth daily. Historical Provider, clopidogrel (Plavix) 75 MG tablet Take 1 tablet by mouth daily. 11/14/18 Historical ProviderMD dicyclomine (Bentyl) 10 MG capsule TAKE 1 CAPSULE BY MOUTH THREE TIMES DAILY BEFORE MEAL(S) 11/14/18 Historical ProviderMD fesoterodine ER (Toviaz) 4 MG 24 hr tablet Take 4 mg by mouth daily. Historical Provider, fluticasone (Flovent) 220 MCG/ACT inhaler Inhale 2 puffs in the morning and 2 puffs in the evening.Rinse mouth with water after use to reduce aftertaste and incidence of candidiasis. Do not swallow.. 02/27/22 02/27/23 Gin Finn, FUNERAL DRIVER - JAVA SPRING DEVELOPER Lancets (OneTouch Delica) lancets 30G TEST SUGAR [...] the evening. Take with meals. 10/02/21 Historical Provider, potassium chloride ER (Micro-K) 10 MEQ ER [...] 06/13/2022 Patient Name: RICARDO VILLALPANDO : 1940 [id number] Date/Time: 06/13/2022 15:08 Procedure: CT HEAD WO [...] [facility] History and physical note* Alisson Lima Evettegonzalo, DO - 06/14/2022 10:15 AM EDT Department [...] 1989 UPPER GASTROINTESTINAL ENDOSCOPY 08/08/[address] [facility] Medications Prior to Admission: Medications Prior to [...] Do not swallow.. 12 g 1 Lancets (AlterPointTouch Delica) lancets 30G TEST SUGAR ONCE A [...] capsule Take 1 capsule by mouth daily. UDeserve Technologiesuch Ultra test strip TEST SUGAR ONCE A [...] infarction) (HCC) Leukocytosis Coronary artery disease involving [place] coronary artery of [place] heart without angina pectoris Esophageal obstruction Dysphagia Dementia (HCC) Anemia AMS Elevated lfts Anemia DM 2 HTN HPL Plan Admit to med tele Consult GI Pt/ot eval Monitor labs ALISSON MORTON DO 06/14/22 10:15 AM [facility] [id number] History and physical note* Alisson Morton DO [...] 1989 UPPER GASTROINTESTINAL ENDOSCOPY 08/08/[address] [facility] Medications Prior to Admission: Medications Prior to [...] infarction) (HCC) Leukocytosis Coronary artery disease involving [place] coronary artery of [place] heart without angina pectoris Esophageal obstruction Dysphagia Dementia (HCC) Anemia AMS Elevated lfts Anemia DM 2 HTN HPL Plan Admit to med tele Consult GI Pt/ot eval Monitor labs ALISSON MORTON DO 06/14/22 10:15 AM documented in this [facility]05-06-2023 Hospital Discharge instructions* Discharge Instr - Other Orders* Estelle Mitchell LPN - 06/13/2022 5:59 PM EDT Discharging to Facility/ Agency [facility]: [facility] Address: [address] [place] [address] * Discharge Instr - NAOMIE* Nicole Boles [...] Emergency Contact Information Primary Emergency Contact: Margarita Rivas Relation: Child Secondary Emergency Contact: Yaz Davis Mobile Relation: Child Past Surgical History: Past Surgical History: Procedure Laterality Date CHOLECYSTECTOMY 03/2019 COLONOSCOPY COLONOSCOPY 03/07/2019 stent removal COLONOSCOPY 09/21/2018 ERCP (HISTORICAL) 02/15/2019 EYE SURGERY Bilateral cataract THROAT SURGERY 2014 TUBAL LIGATION 1989 UPPER GASTROINTESTINAL ENDOSCOPY 08/08/[address] [facility] Immunization History: Immunization History Administered Date(s) Administered [...] infarction) (HCC) Leukocytosis Coronary artery disease involving [place] coronary artery of [place] heart without angina pectoris Isolation/Infection: No active [...] assistance Toileting Minimal assistance Feeding Minimal assistance Sagger Soak Minimal assistance Med Delivery yes Wound Care [...] Score: @READMISSIONRISKDETAILS@ Discharging to Facility/ Agency Name: [facility] Address: [address] [place] [address] Fax: Dialysis Facility (if applicable) Name: Address: Dialysis Schedule: Phone: Fax: Veneer Lathe Operator/Medical Cash Poster signature: ICIAN SECTION Prognosis: fair Condition at Discharge: stable Rehab Potential (if transferring to Rehab): fair Recommended Labs or Other Treatments After Discharge: none Physician Certification: I certify the above information and transfer of Ricardo Villalpando is necessary for the continuing treatment of the diagnosis listed and that she requires assisted facility for less than 30 days. Update Admission H&P: No change in H&P PHYSICIAN SIGNATURE: documented in this [facility]05-06-2023 Note* Home Care - Estelle Mitchell LPN - 06/13/2022 5:56 PM EDT Patient is currently active with [facility]. The patients current certification period will on 07/31/2022. The patient is currently receiving PT/OT/ST services through the agency. Aircraft Mechanic to continue to follow. Placed in care port and sparc [facility] [id number] Note* Home Care - Estelle Mitchell LPN - 06/13/2022 5:56 PM EDT Patient is currently active with [facility]. The patients current certification period will on 07/31/2022. The patient is currently receiving PT/OT/ST services through the agency. Aircraft Mechanic to continue to follow. Placed in care port and sparc [facility] [id number] Note* Care Coordination - Josey Mckeon RN - 06/13/2022 4:28 PM EDT Care Managment Initial Assessment Date: 06/13/2022 Patient Name: Ricardo Villalpando : 1940 Patient Information Source of Information: Patient, Patient Range Mounter Name/Contact Information: MARGARITA RIVAS [phone] DAUGHTER AND DAUGHTER YAZ DAVIS [phone] Cognition/Language: WFL - Within Functional Limits Permission given to speak with patient client support representative/caregiver as indicated: Yes Confirmation of Payer with patient/family: Yes Payer Name: MMO [place]: No Confirmation of Primary Care Physician: Confirmed PCP Name: DR. MORTON Seen in last 2 years?: Yes Primary Caregiver: Family If assistance needed, confirmed caregiver ready, willing and able to care for patient at discharge:Yes Confirmed with: AKI CATALAN Living Arrangements Current Residence: ([facility]) Number of Floors 1 Number of Entry Steps: 2 Bed/Bath Levels: Both first floor Facility: Facility Name: NA Plan to Return: Yes Lives with: Alone Support Systems: Children, Family members, Home care staff, Comments (Other) ([facility]) Activities of Daily Living Ambulation: Independent Bathing/Dressing: Independent Elimination/Continence/Toileting: Independent Feeding: Independent Who Assists with Activities of Daily Living: NA Instrumental Activities of Daily Living Prescription Coverage: Yes [facility] Medication Management: Prescription pick-up Who assists with medication securing and setup?: DAUGHTER SECURES AND SETS UP MEDS Transportation/Shopping: Assistance Provider Transportation/Shopping Assistance Provider Name: [facility] Transportation Mode: Car, Senior/disability transport service [...] Provider Name: UNSURE IF THROUGH [facility] Dialysis Type: NA Durable Medical Equipment: Walker, [...] status from home with anemia. Admitted to [facility]. Admissions orders are pending. Discharge preparation checklist reviewed with patient and her daughter Margarita. [place] [facility] [place] her daughter and son in law. Is active with the [facility] M-F 730-330pm. Her daughter states she has occupational therapy that was seeing her at [facility] and was going to start with ST for swallowing. hospital liaison updated via [facility] and is following. Daughter uncertain if through [facility] or [facility]. Daughter assists patient with all household tasks and patient is independent in her adls. Does not anticipate any needs upon discharge and tentative discharge plan is home with resumption of previous services when medically stable. Will likely need pt/ot evals to assist with dc planning needs. .. Josey Mckeon RN [facility] CenterXrbuka49-44-1238 Note* Care Coordination - Josey Mckeon RN - 06/13/2022 4:28 PM EDT Care Managment Initial Assessment Date: 06/13/2022 Patient Name: Ricardo Villalpando : 1940 Patient Information Source of Information: Patient, Patient Range Mounter Name/Contact Information: MARGARITA RIVAS [phone] DAUGHTER AND DAUGHTER YAZ DAVIS [phone] Cognition/Language: WFL - Within Functional Limits Permission given to speak with patient client support representative/caregiver as indicated: Yes Confirmation of Payer with patient/family: Yes Payer Name: MMO : No Confirmation of Primary Care Physician: Confirmed PCP Name: DR. MORTON Seen in last 2 years?: Yes Primary Caregiver: Family If assistance needed, confirmed caregiver ready, willing and able to care for patient at discharge:Yes Confirmed with: AKI CATALAN Living Arrangements Current Residence: ([facility]) Number of Floors 1 Number of Entry Steps: 2 Bed/Bath Levels: Both first floor Facility: Facility Name: [facility] Plan to Return: Yes Lives with: Alone Support Systems: Children, Family members, Home care staff, Comments (Other) ([facility]) Activities of Daily Living Ambulation: Independent Bathing/Dressing: Independent Elimination/Continence/Toileting: Independent Feeding: Independent Who Assists with Activities of Daily Living: NA Instrumental Activities of Daily Living Prescription Coverage: Yes Pharmacy Used: [facility] Medication Management: Prescription pick-up Who assists with medication securing and setup?: DAUGHTER SECURES AND SETS UP MEDS Transportation/Shopping: Assistance Provider Transportation/Shopping Assistance Provider Name: AKI GONZALEZ [place] Transportation Mode: Car, Senior/disability transport service Needs [...] Provider Name: UNSURE IF THROUGH [facility] Dialysis Type: NA Durable Medical Equipment: Walker, [...] status from home with anemia. Admitted to [facility]. Admissions orders are pending. Discharge preparation checklist reviewed with patient and her daughter Margarita. Patient lives in trailer rightnext door to her daughter and son in law. Is active with the [facility] [employer] M-F 730-330pm. Her daughter states she has occupational therapy that was seeing her at [facility] and was going to start with ST for swallowing. hospital liaison updated via [facility] and is following. Daughter uncertain if through [employer] or [employer]. Daughter assists patient with all household tasks and patient is independent in her adls. Does not anticipate any needs upon discharge and tentative discharge plan is home with resumption of previous services when medically stable. Will likely need pt/ot evals to assist with dc planning needs. .. Josey Mckeon RN [facility] [id number] Emergency department Note* Natalie Scott RN - 06/13/2022 3:13 PM EDT This RN clarified magnesium order with eve Moreno to give per provider. Natalie Scott RN 06/13/22 1514 [facility] CenterEjerqk61-19-6554 Emergency department Note* Natlaie Scott RN - 06/13/2022 3:13 PM EDT [...] incidence of candidiasis. Do not swallow.. LANCETS (Happy CloudTOUCH DELICA) LANCETS 30G TEST SUGAR ONCE A [...] Head: Contusion present. No raccoon eyes or Lnid's sign. 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 [...] MD (electronically signed) Eric Cintron MD 06/13/221542 * Ashanti Michelle RN - 06/13/2022 12:04 PM EDT Pt presents from outpatient ECHO due to bilateral leg edema. +2 edema noted. Pt poor historian. Pt accompanied by daughter documented in this encounterSumma [id number] Emergency department Note* Natalie Scott RN - 06/13/2022 3:03 PM EDT Patient placed in wheelchair to use restroom, pt ambulated well independently from wheelchair to bathroom Natalie Scott RN 06/13/22 1508 [facility] CenterBtvcwj90-19-6591 Emergency department Triage note* Ashanti Michelle RN - 06/13/2022 12:04 PM EDT Pt presents from outpatient ECHO due to bilateral leg edema. +2 edema noted. Pt poor historian. Pt accompanied by daughter [facility] [id number] Physician Emergency department Note* Eric Cintron MD [...] [NM] Eric Cintron MD Diagnoses as of 06/13/221542 Anemia Hyponatremia Hepatitis * No order type [...] MD (electronically signed) Eric Cintron MD 06/13/221542 [facility] [id number] Younger [facility] June 01, 2022 11:43pm Note Date/Time June 01, 2022 11: 15pm [facility] Medical Records Department [address] [place] [address] Emergency Department Summary 06/01/22 MR#: [id number] Acct: [id number] Name: RICARDO VILLALPANDO Rep #:[id number] : 1940 81 From: Xavier Younger MD PCP: Alisson Morton DO Status:REG ER Location: ED HPI History of Present Illness Chief Complaint: Fatigue [facility] Medical History (Updated 06/01/22 @ 23:[address] Xavier Younger MD) Anemia Atherosclerotic heart disease of [place] coronary artery without angina pectoris Dementia Diabetes [...] (Auto) 70.1 H Lymph % (Auto) 22.3 Bristol % (Auto) 5.5 Eos % (Auto) 1.1 [...] Color Urine Clarity Urine pH Ur Specific [place] Urine Protein Urine Glucose (UA) Urine Ketones Urine Occult Blood Urine Nitrite Urine Bilirubin Urine Urobilinogen Ur Leukocyte Esterase Urine RBC Urine WBC Ur Squamous Epith Cells Urine Bacteria Urine Mucus 06/01/22 21:40 WBC RBC Hgb Hct MCV MCH MCHC RDW Std Deviation RDW Coeff of Galen Plt Count MPV Immature Gran % (Auto) Neut % (Auto) Lymph % (Auto) Bristol % (Auto) Eos % (Auto) Baso % (Auto) Absolute Neuts (auto) Absolute Lymphs (auto) Nucleated RBC % Sodium Potassium Chloride Carbon Dioxide Anion Gap BUN Creatinine Est GFR (MDRD) Af Amer Est GFR (MDRD) Non-Af BUN/Creatinine Ratio Glucose Calcium Total Bilirubin Direct Bilirubin AST ALT Alkaline Phosphatase Total Protein Albumin Globulin Urine Color Yellow Urine Clarity Sl. Cloudy Urine pH 5.0 Ur Specific Annawan 1.015 Urine Protein 30 H Urine Glucose [...] Care Provider: Alisson Morton Referrals: Alisson Morton, DO [Primary Care Provider] - 3-5 Days Disposition Disposition: Home, Self Care What to do if you have Problems For any increased pain, shortness of breath, bleeding, nausea or vomiting, chestpain, or any unexpected problems, contact your Primary Care Provider. Call [facility] ([phone]) or report to the closest Emergency Room. Call 911 if necessary. 06/01/22 2286 <Electronically signed by Xavier Younger MD> Cosigner Signature (if applicable): CC: Alisson Morton DO ~ Signed [facility] Work Phone: 1(423) 974-603704-05-[address] Pack [facility] May 13, 2022 3:47pm Note Date/Time May 13, 2022 3:46 pm [facility] Medical Records Department [address] [place] [address] Instructions for Home/Discharge Instructions 05/13/22 1545 MR#: [id number] Acct: [id number] Name: RICARDO VILLALPANDO Rep #:[id number] : 1940 81 From: Jovi galvez MD [...] MD CC: Alisson Morton DO ~ Signed [facility] Work Phone: 1(568) 933-339104-05-[address] Pack [facility] May 13, 2022 2:10pm Note Date/Time May 13, 2022 2:10 pm [facility] Medical Records Department [address] [place] [address] Discharge Summary 05/13/22 1406 MR#: [id number] Acct: [id number] Name: RICARDO VILLALPANDO Rep #:[id number] : 1940 81 From: Jovi galvez MD PCP: Alisson Morton DO Status:ADM WARD Location: [place] [address] Providers Date of Admission: 05/12/22 Primary Care Physician: Dr. Alisson Morton DO Consultations 05/12/22 12:48 Consult: Gastroenterology Routine Consulting Provider: [facility] Reason for Consult: Dysphagia EMERGENT Consult: [...] had another 1 at a hospital in [place] in January 2022.? She has been having [...] % (Auto) 61.7, Lymph % (Auto) 21.4, Bristol % (Auto) 11.8 H, Eos % (Auto) [...] in before D/C Order can be placed): Detention Facility Charges/Coding Visit Charges Inpatient E&M: 18316 Disch Hosp >30min 05/13/22 1410 <Electronically signed by Jovi Pack MD> Cosigner Signature (if applicable): CC: Dr. Jovi Pack MD; Alisson Morton DO~ Signed [facility] Work Phone: 1([phone]) 400-558304-05-[address] Pack [facility] May 13, 2022 1:53pm Note Date/Time May 13, 2022 1:51 pm [facility] Medical Records Department [address] [place] [address] Transfer to [facility] MR#: [id number] Acct: [id number] Name: RICARDO VILLALPANDO Rep #:[id number] : 1940 81 From: Jovi galvez MD PCP: Alisson Morton DO Status:ADM WARD Certification of patient admission REQUIRED AT TIME OF ADMISSION. I CERTIFY THAT POST-HOSPITAL [facility] SERVICES ARE REQUIRED TO BE GIVEN ON AN IN-PATIENT BASIS BECAUSE OF THE ABOVE NAMED PATIENT'S NEED FOR [facility] CARE ON A CONTINUING BASIS FOR THE CONDITION(S) FOR WHICH HE/SHE WAS RECEIVING IN-PATIENT HOSPITAL SERVICES PRIOR TO HIS/HER TRANSFER TO THE [facility]. 05/13/22 1353<Electronically signed by Jovi [...] Recommendations/Changes: Continue Cardiac diet with texture/consistency per SECURITY COMPLIANCE ENGINEER/MD. Continue 120mL EPHP TID with medpass to [...] in before D/C Order can be placed): Detention Facility 05/13/22 1353 <Electronically signed by Jovi Pack MD> Cosigner Signature (if applicable): CC: Alisson Morton DO ~ [facility] Work Phone: 1(654) 600-911004-05-[address] Pack [facility] May 13, 2022 9:17am Note Date/Time May 13, 2022 9:13 am [facility] Medical Records Department [address] [place] [address] Progress Note - Hospitalist 05/13/2210 MR#: [id number] Acct: [id number] Name: RICARDO VILLALPANDO Rep #:[id number] : 1940 81 From: Jovi galvez MD PCP: Alisson Morton DO Status:ADM WARD Location: [place] [address] Subjective Subjective Doing well, no issues overnight [...] (Auto) 70.4 H, Lymph % (Auto) 17.0 L,Bristol % (Auto) 8.8, Eos % (Auto) 2.9, [...] % (Auto) 61.7, Lymph % (Auto) 21.4, Bristol % (Auto) 11.8 H, Eos % (Auto) [...] DVT: SCDs Charges/Coding Visit Charges Inpatient E&M: 64925 Subs Hosp L2 05/13/22 0917 <Electronically signed by Jovi Pack MD> Cosigner Signature (if applicable): CC: ~ Signed [facility] Work Phone: 1(295) 354-207004-05-2023 Procedure [facility] 05-13-2022 Procedure [facility]04-04-2023 Consult note Author Roque Herrera [facility] May 12, 2022 6:47pm Note Date/Time May 12, 2022 6:45 pm [facility] Medical Records Department [address] [place] [address] Consultation - GI 05/12/22 1844 MR#: [id number] Acct: [id number] Name: RICARDO VILLALPANDO Rep #:[id number] : 1940 81 From: Roque Herrera DO PCP: Alisson Morton DO Status:ADM WARD Location: [place] [address] HPI Consult Data Date of Consult: 05/12/22 [...] has historyof EGD with esophageal dilatation around 2021.? She per daughter had been doing relatively well until recently.? She had had 1 prior dilatation years ago.? Patient currently at assisted living facility.? Patient has history of dementia and is somewhat of a poor historian.? Apparently she is able to swallow liquids.? Her last dilatation was in [place]. ?Imaging demonstrates a large hiatal hernia. [facility] Medical History (Updated 05/12/22 @ 18:[address] Nevarez Friend, ) Anemia Atherosclerotic heart disease of [place] coronary artery without angina pectoris Dementia Diabetes [...] (Auto) 70.4 H, Lymph % (Auto) 17.0 L,Bristol % (Auto) 8.8, Eos % (Auto) 2.9, [...] of 3. Charges/Coding Visit Charges Inpatient E&M: 15510 Init Hosp L2 05/12/22 1847 <Electronically signed by Roque Herrera DO> Cosigner Signature (if applicable): CC: Alisson Morton DO~ Signed [facility] Work Phone: [phone]) 700-256204-04-[address] Benitez [facility] May 12, 2022 4:36pm Note Date/Time May 12, 2022 10:0 0am [facility] Medical Records Department [address] [place] [address] Emergency Department Summary 05/12/22 MR#: [id number] Acct: [id number] Name: RICARDO VILLALPANDO Rep #:[id number] : 1940 81 From: Zonia Benitez DO PCP: Alisson Morton DO Status:ADM WARD Location: [place] [address] HPI History of Present Illness Chief Complaint: [...] swallow liquids. Her last dilatation was in [place]. [facility] Medical History (Updated 05/12/22 @ 11:[address] Zonia Benitez, DO) Anemia Atherosclerotic heart disease of [place] coronary artery without angina pectoris Dyslipidemia Gallstone [...] swallow without difficulty. I discussed case with [employer] on-call Dr. Herrera. He felt admitting the [...] 70.4 H Lymph % (Auto) 17.0 L Bristol % (Auto) 8.8 Eos % (Auto) 2.9 [...] Referrals: Alisson Morton, [Primary Care Provider] - Disposition Disposition: Acute Care Hospital [facility] What to do if you have Problems For any increased pain, shortness of breath, bleeding, nausea or vomiting, chestpain, or any unexpected problems, contact your Primary Care Provider. Call [facility] ([phone]) or report to the closest Emergency Room. Call 911 if necessary. 05/12/22 1636 <Electronically signed by Zonia Benitez DO> Cosigner Signature (if applicable): CC: Alisson Morton DO ~ Signed [facility] Work Phone: [phone]) 709-435104-04-2023 History and physical note Author Dr. Pack [facility] May 12, 2022 4:06pm Note Date/Time May 12, 2022 11:2 1am [facility] Medical Records Department [address] [place] [address] H&P Exam - Hospitalist 05/12/22 1115 MR#: [id number] Acct: [id number] Name: RICARDO VILLALPANDO Rep #:[id number] : 1940 81 From: Jovi galvez MD PCP: Alisson Morton DO Status:ADM WARD Location: [place] [address] HPI - General General Date of Admission: 05/12/22 HPI Narrative RICARDO VILLALPANDO, is a 81 F who presents to the hospital with difficulty swallowing. This has been an ongoing issue she had a previous esophageal dilatation years ago and then had another 1 at a hospital in [place] in January 2022. She has been having [...] the case with the ED physician. [facility] Medical History (Updated 05/12/22 @ 12:41 by Lyn Minor) Anemia Atherosclerotic heart disease of [place] coronary artery without angina pectoris Dementia Diabetes [...] (Auto) 70.4 H, Lymph % (Auto) 17.0 L,Bristol % (Auto) 8.8, Eos % (Auto) 2.9, [...] Signed: Demar Toscano MD at 10:11 EDT Reading Location ID and State: [facility] / [place] , Service support , Assessment & Plan Assessment/Plan (1) Dysphagia: [...] medications DVT: SCDs 75 minutes was spent [id number], as well as chart review and documentation anddiscussing the case with colleagues Charges/Coding Visit Charges Inpatient E&M: 92166 Init Hosp L3 05/12/22 1605 <Electronically signed by Jovi Pack MD> Cosigner Signature (if applicable): CC: Dr. Jovi Pack MD; Alisson Morton DO~ Signed [facility] Work Phone: [phone]) 564-377201-26-2023 Telephone encounter Note* Telephone Encounter - KALYN Fulton CNP - 03/05/2022 11:40 AM EST Spoke to daughter Margarita and relayed the message. She will bead picker the medication today. [facility] CenterHctlmd34-60-8137 Miscellaneous Notes* Telephone Encounter - KALYN Fulton CNP - 03/05/2022 11:40 AM EST Spoke to daughter Margarita and relayed the message. She will bead picker the medication today. * Telephone Encounter - KALYN Fulton CNP - 03/05/2022 11:32 AM EST SADI I called Donald (pharmacist) at [facility] [address] [place] [address] PH#[phone]. The medication (budesonide slurry) is ready for patient to bead picker. It will be $40 per month. [...] verbal order by provider into [facility] [address] [place] [address] #[phone]. Pharmacist stated "compoundingpharmacist" was not in today, [...] Please call [facility] (surescripts ID: [facility]- NOT [facility]) [phone] to request budesonide slurry d/t high cost [...] that Flovent is "almost$400" and did not bead picker. Is there an alternative rx that [...] daughter and got her scheduled for a WORKFORCE ANALYST appointment on 03/13/22 at 2:40pm with Huma [...] my schedule to discuss. documented in this encounterSOhio State East HospitalIdlwkb87-62-6028 Telephone encounter Note* Telephone Encounter - KALYN Fulton CNP - 03/05/2022 11:32 AM EST SADI I called Donald (pharmacist) at [facility] [address] [place] [address] PH#[phone]. The medication (budesonide slurry) is ready for patient to bead picker. It will be $40 per month. [...] Yaz calls back and has any questions. [facility] CenterDdxbmu59-86-7755 Telephone encounter Note* Telephone Encounter - Pau [...] covering medications. Please advise and Thank you [facility] [id number] Miscellaneous Notes* Telephone Encounter - Pau Bar [...] verbal order by provider into [facility] [address] #[phone]. Pharmacist stated "compoundingpharmacist" was not in today, [...] Please call [facility] (surescripts ID: [facility]- [facility]) [phone] to request budesonide slurry d/t high cost [...] that Flovent is "almost$400" and did not bead picker. Is there an alternative rx that [...] daughter and got her scheduled for a WORKFORCE ANALYST appointment on 03/13/22 at 2:40pm with Huma [...] my schedule to discuss. documented in this encounterSOhio State East HospitalVufdfo56-54-9327 Telephone encounter Note* Telephone Encounter - KALYN Fulton CNP - 03/04/2022 12:56 PM EST Please let me know once you talk to the patient's daughter so she is confident on how the patient it to take medication. Thank you! [facility] CenterJfkcsm03-46-4115 Telephone encounter Note* Telephone Encounter - Lupis Connors RN - 03/04/2022 11:55 AM EST Called in rx as written and verified with verbal order by provider into [facility] [address] [facility] [address] #[phone]. Pharmacist stated "compoundingpharmacist" was not in today, and will return tomorrow. Pharmacist verified rx, pt information, andstated would return call tomorrow if any issues arise with filling script. Rx admin counseling alsorequested by pharmacist when pt picks up rx. Unable to schedule repeat EGD at this time due to schedule unavailable. [facility] [id number] Telephone encounter Note* Telephone Encounter - KALYN Fulton CNP - 03/04/2022 7:35 AM EST Please call [facility] (surescripts ID: [facility]- NOT [facility]) [phone] to request budesonide slurry d/t high cost [...] budesonide suspension. Will need repeat EGD after. [facility] [id number] Telephone encounter Note* Telephone Encounter - Lupis Connors RN - 03/03/2022 12:55 PM EST Spoke with pt's daughter, Margarita in regards to rx instructions. Margarita stated that Flovent is "almost$400" and did not bead picker. Is there an alternative rx that can be prescribed for this pt? [facility] CenterXqvbyj09-51-6192 Miscellaneous Notes* Telephone Encounter - Lupis Connors RN - 03/03/2022 12:55 PM EST Spoke with pt's daughter, Margarita in regards to rx instructions. Margarita stated that Flovent is "almost$400" and did not bead picker. Is there an alternative rx that [...] daughter and got her scheduled for a WORKFORCE ANALYST appointment on 03/13/22 at 2:40pm with Huma [...] my schedule to discuss. documented in this encounterSOhio State East HospitalJpqbsj09-45-4262 Telephone encounter Note* Telephone Encounter - Keisha Weiss - 03/02/2022 1:05 PM EST Called pt and left a VM requesting a callback to go over providers recommendations. Callback numberprovided. [facility] CenterRjorfn24-81-5506 Miscellaneous Notes* Telephone Encounter - Keisha Weiss [...] daughter and got her scheduled for a WORKFORCE ANALYST appointment on 03/13/22 at 2:40pm with Huma [...] my schedule to discuss. documented in this encounterSOhio State East HospitalAzlnil53-29-2829 Telephone encounter Note* Telephone Encounter - KALYN Fulton CNP - 03/02/2022 10:20 AM EST Did anyone speak with her about the recommendations? [facility] CenterJiimvd18-15-7072 Telephone encounter Note* Telephone Encounter - Keisha Weiss - 03/02/2022 8:22 AM EST Called pt and spoke to her daughter and got her scheduled for a WORKFORCE ANALYST appointment on 03/13/22 at 2:40pm with Huma Meyers. [facility] CenterIibswh77-66-3389 Telephone encounter Note* Telephone Encounter - Lupis Connors RN - 02/27/2022 1:49 PM EST Attempted contact with pt in regards to providers' recommendations. No answer. VM left. [facility] CenterStatJbsllz97-95-5445 Telephone encounter Note* Telephone Encounter - KALYN [...] new patient on my schedule to discuss. [facility] [id number] Note* Op Note - Mykel Powell MD - 02/23/2022 7:43 AM EST [facility]: Ricardo Villalpando Procedure Date: 02/23/2022 [...] by the physician, the nurse and the landscaper in the pre-procedure area in the procedure [...] loss: None. Procedure Code(s): --- Professional --- 86338, Esophagogastroduodenoscopy, flexible, transoral; with transendoscopic balloon dilation of esophagus (less than 30 mm diameter) 74084, 59, Esophagogastroduodenoscopy, flexible, transoral; with biopsy, single or multiple --- Technical --- 76541, Esophagogastroduodenoscopy, flexible, transoral; with transendoscopic balloon dilation of esophagus (less than 30 mm diameter) 77745, 59, Esophagogastroduodenoscopy, flexible, transoral; with biopsy, single or multiple Diagnosis Code(s): --- Professional --- K22.2, Esophageal obstruction K44.9, Diaphragmatic hernia without obstruction or gangrene R13.10, Dysphagia, unspecified --- Technical --- K22.2, Esophageal obstruction K44.9, Diaphragmatic hernia without obstruction or gangrene R13.10, Dysphagia, unspecified CPT copyright 2020 [employer]. All rights reserved. The codes documented in this report are preliminary and upon senior trial attorney review may be revised to meet current compliance requirements. Attending Participation: I personally performed the entire procedure. MYKEL Powell MD 02/23/2022 8:09:15 AM This report has been signed electronically. Number of Addenda: 0 Note Initiated On: 02/23/2022 7:43 AM [facility] CenterZnkctv39-16-2215 Note* Op Note - Mykel Powell MD - 02/23/2022 7:43 AM EST [facility] Patient Name: Ricardo Villalpando Procedure Date: 02/23/2022 [...] by the physician, the nurse and the landscaper in the pre-procedure area in the procedure [...] loss: None. Procedure Code(s): --- Professional --- 32053, Esophagogastroduodenoscopy, flexible, transoral; with transendoscopic balloon dilation of esophagus (less than 30 mm diameter) 97589, 59, Esophagogastroduodenoscopy, flexible, transoral; with biopsy, single or multiple --- Technical --- 35857, Esophagogastroduodenoscopy, flexible, transoral; with transendoscopic balloon dilation of esophagus (less than 30 mm diameter) 88918, 59, Esophagogastroduodenoscopy, flexible, transoral; with biopsy, single or multiple Diagnosis Code(s): --- Professional --- K22.2, Esophageal obstruction K44.9, Diaphragmatic hernia without obstruction or gangrene R13.10, Dysphagia, unspecified --- Technical --- K22.2, Esophageal obstruction K44.9, Diaphragmatic hernia without obstruction or gangrene R13.10, Dysphagia, unspecified CPT copyright 2020 [employer]. All rights reserved. The codes documented in this report are preliminary and upon senior trial attorney review may be revised to meet current compliance requirements. Attending Participation: I personally performed the entire procedure. MYKEL Powell MD 02/23/2022 8:09:15 AM This report has been signed electronically. Number of Addenda: 0 Note Initiated On: 02/23/2022 7:43 AM [id number] Miscellaneous Notes* Op Note - Mykel Powell MD - 02/23/2022 7:43 AM EST [facility] Patient Name: Ricardo Villalpando Procedure Date: 02/23/2022 [...] by the physician, the nurse and the landscaper in the pre-procedure area in the procedure [...] loss: None. Procedure Code(s): --- Professional --- 26340, Esophagogastroduodenoscopy, flexible, transoral; with transendoscopic balloon dilation of esophagus (less than 30 mm diameter) 05505, 59, Esophagogastroduodenoscopy, flexible, transoral; with biopsy, single or multiple --- Technical --- 25132, Esophagogastroduodenoscopy, flexible, transoral; with transendoscopic balloon dilation of esophagus (less than 30 mm diameter) 06766, 59, Esophagogastroduodenoscopy, flexible, transoral; with biopsy, single or multiple Diagnosis Code(s): --- Professional --- K22.2, Esophageal obstruction K44.9, Diaphragmatic hernia without obstruction or gangrene R13.10, Dysphagia, unspecified --- Technical --- K22.2, Esophageal obstruction K44.9, Diaphragmatic hernia without obstruction or gangrene R13.10, Dysphagia, unspecified CPT copyright 2020 [employer]. All rights reserved. The codes documented in this report are preliminary and upon senior trial attorney review may be revised to meet current compliance requirements. Attending Participation: I personally performed the entire procedure. MYKEL Powell MD 02/23/2022 8:09:15 AM This report has been signed electronically. Number of Addenda: 0 Note Initiated On: 02/23/2022 7:43 AM documented in this [facility]01-16-2023 History and physical note* Mykel Powell [...] capsule Take 1 capsule by mouth daily. [employer] Ultra test strip TEST SUGAR ONCE A [...] proceed with planned procedure. Andre [facility] Phone: 1(497) 444-622101-16-2023 History and physical note* Mykel Powell MD [...] capsule Take 1 capsule by mouth daily. [employer] Ultra test strip TEST SUGAR ONCE A [...] Care Everywhere. * Thyroid: Biopsy: Fine-Needle: Post-op (Chilean) documented in this [facility] Work Phone: [phone]) 164-664301-11-2020 Hospital course Narrative* Gustavo Muniz MD - [...] DISCHARGE MEDICATIONS: Ricardo Villalpando Home Medication Instructions JENNIFER:[id number] Printed on:02/18/19 1217 Medication Information aspirin 81 MG chewable tablet [...] Complexity: follow up within 7-14 calendar days (50819) [] Severe Complexity: follow up within 7 calendar days (80889) FOLLOW UP TESTING, PENDING RESULTS OR REFERRALS AT TRANSITIONAL CARE VISIT: [] Yes [] No PENDING STUDIES: No DISPOSITION: Home FACILITY/HOME CARE AGENCY NAME: Follow up with Follow-up With Details Why Contact Info Alisson Morton DO In [address] [facility] [id number] Osmar Anderson MD In 2 weeks [address] [facility], [address] [facility] [id number] Lisa Smiley MD In 2 weeks [address] [facility] [address] [facility] [id number] INSTRUCTIONS TO MA/SW: Please call patient on [...] MD 02/18/2019, 12:17 PM [facility] Phone: 1([phone]) [phone] History of Present illness Narrative* Sharmila Lr [...] Date 02/18/19 0000 - 02/18/19 2359 Shift 1954-7968 6137-1952 7428-7550 24 Hour Total INTAKE Shift Total(mL/kg) OUTPUT [...] obvious rashes LABS CBC: Recent Labs 02/16/19 0101 02/17/19 0042 02/18/19 0032 WBC 22.3* 19.0* 13.1* HGB 12.6 11.6* 11.3* HCT 37.3 34.3* 32.8* PLT 210 244 207 BMP: Recent Labs 02/16/19 01002/17/19 0042 NA 140 139 K 4.2 4.1 [...] standpoint Sharmila Lr MD, 0298 * Iesha Loya PT - 02/17/2019 3:22 PM EST Physical Therapy Facility/Department: [facility] MED SURG PT REEVALUATION NAME: Ricardo Villalpando [...] it feels really good. G-Code OutComes Score AM-[facility] Score -[facility] Inpatient Mobility Raw Score : 18 (02/13/191721) -[facility] Inpatient T-Scale Score : 43.63 (02/13/191721) Mobility Inpatient CMS 0-100% Score: 46.58 (02/13/191721) Mobility Inpatient [facility] G-Code Modifier : CK (02/13/191721) Goals Short [...] EST Hospitalist Progress Note 02/17/2019 9:03 AM [phone]: Please page me for patient care issues. [phone]: Please page [facility] night Hospitalist for any issues. Subjective: Admit Date: 02/11/2019 PCP: ALISSON MORTON DO Room#: [id number] Interval History: Patient seen and examined No [...] 02/15/19 0627 109 lb (49.4 kg) 02/14/19 05 109 lb 8 oz (49.7 kg) Medications: [...] 8 11 9 LIVER PROFILE: Recent Labs 02/15/191709/20 0101 02/17/19 0042 AST 80* 100* 62* ALT 76* [...] of Hospitalist Medicine Inpatient Medical Services PAGER: [phone] * Sharmila Lr MD - 02/17/2019 6:41 [...] Date 02/17/19 0000 - 02/17/19 2359 Shift 1314-2495 0052-8956 7810-0450 24 Hour Total INTAKE Shift Total(mL/kg) OUTPUT [...] no obvious rashes LABS CBC: Recent Labs 02/15/198 02/16/1910002/17/19 0042 WBC 7.4 22.3* 19.0* HGB 12.8 12.6 11.6* HCT 36.6 37.3 34.3* PLT 223 210 244 BMP: Recent Labs 02/15/19 0018 02/16/19 01002/17/19 0042 NA 141 140 139 K 4.0 4.2 4.1 CL 104 105 106 CO2 28 25 24 BUN 10 13 21* CREATININE 0.87 0.74 0.81 GLUCOSE 110* 182* 125* Hepatic: Recent Labs 02/15/19 0018 02/16/19 0101 02/17/19 0042 AST 80* 100* 62* ALT 76* [...] Anderson MD - 02/17/2019 4:58 PM EST [facility] Medical [facility] - Surgery [facility] Physicians Surgery Patient Name: Ricardo Villalpando [...] 223 210 244 BMP: Recent Labs 02/15/198 02/16/1910002/17/19 0042 NA 141 140 139 K 4.0 4.2 4.1 CL 104 105 106 CO2 28 25 24 BUN 10 13 21* CREATININE 0.87 0.74 0.81 GLUCOSE 110* 182* 125* Hepatic: Recent Labs 02/15/191702/16/1910002/17/19 004 ALKPHOS 94 83 75 ALT 76* 81* [...] High Nutrient Needs: Estimated Daily Total Kcal: 4193-0556 (25-28) Estimated Daily Protein (g): 51-61 (1.0-1.2) [...] loss in 6 months: (08/13/18) 139# --> (1/5/20) 113# Hickman Body Wt: 100 lb (45.4 kg), BMI [...] Weight, Monitor Bowel Function Contact Number: pager [phone] * Carina Ovalles, OT - 02/16/2019 11:29 [...] Prognosis: Good Decision Making: Low Complexity Exam: [facility] OT Education: OT Role;Plan of Care;ADL [...] Ambulation Assistance: Independent Transfer Assistance: Independent Active Collection Clerk: Yes Mode of Transportation: Car Occupation: Retired [...] Home Management Training, Cognitive/Perceptual Training OutComes Score AM-PAC Daily Activity Inpatient How much help for putting on and taking off regular lower body clothing?: A Little How much help for Bathing?: A Little How much help for Toileting?: A Little How much help for putting on and taking off regular upper body clothing?: None How much help for taking care of personal grooming?: None How much help for eating meals?: None AM-PAC Inpatient Daily Activity Raw Score: 21 AM-PAC Inpatient ADL T-Scale Score : 44.27 ADL [...] Plan of Care supervision is transferred to [facility] Occupational Therapist. Carina Ovalles OTR/L * Debbi [...] EST Hospitalist Progress Note 02/16/2019 8:32 AM [phone]: Please page me for patient care issues. [phone]: Please page [facility] night Hospitalist for any issues. Subjective: Admit Date: 02/11/2019 PCP: ALISSON MORTON DO Room#: [id number] Interval History: Patient seen and examined No [...] LABS: CBC: Recent Labs 02/15/19 0018 02/16/19 010 WBC 7.4 22.3* RBC 3.88 [...] of Hospitalist Medicine Inpatient Medical Services PAGER: [phone] Addendum patient was complaining of abdominal pain [...] Intake/Output Summary (Last 24 hours) at 02/16/2019 1650 Last data filed at 02/16/2019 0534 Gross [...] EST Hospitalist Progress Note 02/15/2019 8:29 AM [phone]: Please page me for patient care issues. [phone]: Please page [facility] night Hospitalist for any issues. Subjective: Admit Date: 02/11/2019 PCP: ALISSON MORTON DO Room#: [id number] Interval History: Patient seen and examined No [...] g Intravenous Q8H LABS: CBC: Recent Labs 02/13/191 02/15/1917 WBC 5.7 7.4 RBC 3.48* 3.88 HGB 11.6* 12.8 HCT 32.8* 36.6 MCV 94.4 94.4 RDW 12.3 12.1 PLT 196 223 BMP: Recent Labs 02/13/19 0051 02/14/19 0126 02/15/19 001 NA 142 -- 141 K 3.4* 3.8 [...] of Hospitalist Medicine Inpatient Medical Services PAGER: [phone] * Carina Ovalles OT - 02/15/2019 7:10 AM EST Occupational Therapy OT Hold Note OT eval and treat orders received. Pt is scheduled for ERCP and cholecystectomy today. Will hold OTeval until after surgery. Carina Ovalles OTR/L * Gustavo Muniz MD - 02/14/2019 12:11 PM EST Hospitalist Progress Note 02/14/2019 12:11 PM [phone]: Please page me for patient care issues. [phone]: Please page [facility] night Hospitalist for any issues. Subjective: Admit Date: 02/11/2019 PCP: ALISSON MORTON DO Room#: [id number] Interval History: Patient seen and examined No [...] 3.0* PROT 5.5* 5.8* PT/INR: Recent Labs 02/12/19 0054 PROTIME 11.1 INR 1.1 CARDIAC ENZYMES: No [...] of Hospitalist Medicine Inpatient Medical Services PAGER: [phone] * Lila Vance PA-C - 02/14/2019 10:02 [...] 196 MPV 10.3 10.1 CMP: Recent Labs 02/12/195302/13/19 00502/14/19 0126 NA 142 142 -- K 3.6 3.4* 3.8 CL 110* 108* -- CO2 27 26 -- BUN 11 6* -- CREATININE 0.78 0.68 -- GLUCOSE 84 93 -- CALCIUM 8.8 9.0 -- PROT 5.5* 5.8* -- LABALBU 2.9* 3.0* -- BILITOT 0.6 0.7 -- ALKPHOS 86 77 -- AST 87* 62* -- ALT 81* 66 -- PT/INR: Recent Labs 02/11/19 1100 02/12/19 0054 INR 1.0 1.1 Radiology Review: MRCP 02/11/2019 [...] 02/13/2019 5:21 PM EST Physical Therapy Facility/Department: [facility] MED SURG Initial Assessment NAME: Ricardo Villalpando [...] Ambulation Assistance: Independent Transfer Assistance: Independent Active Collection Clerk: Yes Mode of Transportation: Car Occupation: Retired [...] High Nutrient Needs: Estimated Daily Total Kcal: 7684-6104 (25-28) Estimated Daily Protein (g): 51-61 (1.0-1.2) [...] 6 months: (08/13/18) 139# --> (02/12/19) 113# Hickman Body Wt: 100 lb (45.4 kg), BMI [...] Constipation, Monitor Bowel Function Contact Number: pager [phone] * Lila Vance PA-C - 02/13/2019 10:50 [...] the patient. CBC: Recent Labs 02/11/19 0726 02/12/194 02/13/19 0051 WBC 9.9 5.5 5.7 RBC 3.60* 3.37* 3.48* HGB 11.8 11.1* 11.6* HCT 34.8* 32.5* 32.8* MCV 96.7 96.5 94.4 MCH 32.7 33.0 33.3 MCHC 33.9 34.2 35.2 RDW 12.4 12.4 12.3 PLT 193 163 196 MPV 10.0 10.3 10.1 CMP: Recent Labs 02/11/19 0726 02/12/19 0054 02/13/19 005 NA 142 142 142 K [...] EST Hospitalist Progress Note 02/13/2019 8:42 AM [phone]: Please page me for patient care issues. [phone]: Please page [facility] night Hospitalist for any issues. Subjective: Admit Date: 02/11/2019 PCP: ALISSON MORTON DO Room#: [id number] Interval History: Patient seen and examined No [...] Intravenous Q8H LABS: CBC: Recent Labs 02/11/19 0702/12/195302/13/1950 WBC 9.9 5.5 5.7 RBC 3.60* 3.37* 3.48* HGB 11.8 11.1* 11.6* HCT 34.8* 32.5* 32.8* MCV 96.7 96.5 94.4 RDW 12.4 12.4 12.3 PLT 193 163 196 BMP: Recent Labs 02/11/19 0702/12/195302/13/1950 NA 142 142 142 K 3.7 3.6 [...] INR 1.0 1.1 CARDIAC ENZYMES: Recent Labs 02/11/19 0726 TROPONINI <0.012 Procalcitonin: Lab Results Component Value [...] of Hospitalist Medicine Inpatient Medical Services PAGER: [phone] * Sonny Peres MD - 02/12/2019 10:47 AM EST Hospitalist Progress Note 02/12/2019 10:48 AM Subjective: Admit Date: 02/11/2019 PCP: ALISSON MORTON DO Interval History: No overnight issues. Pt denies any abdominal pain DIET FULL LIQUID; Date 02/12/19 0000 - 02/12/19 2359 Shift 1300-0056 4028-7917 8095-4384 24 Hour Total INTAKE P.O.(mL/kg/hr) 0(0) 0 [...] Date PHART 7.464 08/05/2018 PO2ART 113.3 08/05/2018 DXT1TPI 32.7 08/05/2018 Recent Labs 02/11/19 1100 02/12/19 0054 INR 1.0 1.1 Recent Labs 02/11/19 07 TROPONINI <0.012 No results for input(s): DDIMER [...] If patient is beta-lactam allergic, please call [facility] Microbiology lab ([phone]) within 2 days to request susceptibility testing. [...] Code Discharge planning: TBD Sonny Peres MD Rounding Hospitalist * Devan Fitzgerald MD - 02/11/2019 [...] or concerns. -2 Department of General Surgery #[id number] [facility] Work Phone: 1(457) 724-489701-06-2020 Hospital Discharge instructions* Discharge Instr - Activity* [...] most local grocery stores, pharmacies, and chain [employer]stores. ? If you have any questions about your diet or nutrition, call the hospital and ask for the dietitian. Cardiac diet * Attachments The following attachments cannot be sent through Care Everywhere. * Cholecystectomy: Post-op (Chilean) [facility] Work Phone: Consult note Author Elina Alexander [facility] Note Date/Time October 05, 2024 8: 37am [facility] Medical Records Department [address] [place] [address] Pre-Anesthesia Evaluation 10/05/24 0833 MR#: [id number] Acct: [id number] Name: RICARDO VILLALPANDO Rep #:[id number] : 1940 83 From: Elina collins MANAGER DIABETES PCP: Alisson Morton DO Status:REG SDC Y Race: C Location: [place] [address] ASA Classification* ASA Classification ASA Classification: 3 Assessment & Plan Anesthesia* Anesthesia Assessment Anesthesia Assessment: Discussed sedation and/or anesthesia options, risks, benefits, and alternatives with patient/parents/legal guardian/POA. Questions invited. The patient/parents/legal guardian/POA seems to understand and agrees to proceedwith anesthesia plan. Reviewed the physical assessment, medical history, allergy history and patient home medications list prior to surgery/procedure/anesthetic and documented any changes. Performed airway and anesthesia risk assessments. Anesthesia Type Anesthesia Type: MAC History Source History Obtained from:: Patient, Chart and - (daughter, consent from POA) Anesthesia Focused Assessment* Temperature: 97.6 F Pulse Rate: 72 Blood Pressure: 102/76 Respiratory Rate: 16 Pulse Ox: 100 Oxygen Delivery Method: Room Air Airway Assessment Mouth opens: >3 cm Mallampati Score: I Teeth Condition: Dentures Neck Range of motion (ROM): Limited ROM Comment: upper and lower to come out Labs Anesthesia Preop lab: CBC WBC 5.0 K/mm3 (4.4-11.0) 09/14/24 05:15 09/14/24 RBC 3.38 M/mm3 (4.2-5.4) L 09/14/24 05:15 09/14/24 Hgb 9.7 g/dL (12.0-15.0) L 09/14/24 05:15 09/14/24 Hct 30.0 % (37-47) L 09/14/24 05:15 09/14/24 Plt Count 197 K/mm3 (150-450) 09/14/24 05:15 09/14/24 CHEMISTRY Potassium 3.9 mmol/L (3.3-5.1) 09/14/24 05:15 09/14/24 Sodium 140 mmol/L (133-145) 09/14/24 05:15 09/14/24 BUN 20 mg/dL (4-19) H 09/14/24 05:15 09/14/24 Creatinine 0.86 mg/dL (0.70-1.20) 09/14/24 05:15 09/14/24 Glucose 109 mg/dL (70-99) H 09/14/24 05:15 09/14/24 POC Glucose 126 mg/dL (74-106) H 07/30/23 06:08 07/30/23 COAG PT 14.7 SECONDS (11.7-14.9) 05/13/22 05:40 Pre-Assessment Diagnosis/Proposed Procedure Planned Operative Procedure(s): EGD Anesthesia History Anesthesia History - critical care physician assistant: Anesthesia History - critical care physician assistant Hx Hospitalization Yes: 06/2022 LOWER LEGS EDEMA 08/27/24 10:39 Any Problems With Anesthesia No 08/27/24 10:39 Cholinesterase deficiency No 08/27/24 10:39 You/Your Family Experience No 08/27/24 10:39 fever (hyperthermia) with Relationship Recent Exposure to Contagious No 10/05/24 08:07 Disease Does patient have nerve No 10/05/24 07:47 stimulator Patient instructed to have device shut off --Does patient have Pacemaker No 10/05/24 08:07 or ICD? When Was Last Pacemaker Check QUESTION #4 FULL TEXT: You/Your Family Experience fever (hyperthermia) with Anesthesia Last Oral Intake Last Oral intake: Last Oral Intake NPO since 00:00 10/05/24 08:07 Meds taken in AM with sips of water? Meds patient instructed to take am of surgery PONV PONV - critical care physician assistant: PONV - critical care physician assistant Female Yes 10/05/24 07:47 HX of Motion Sickness No 10/05/24 07:47 HX of N/V After Surgery No 10/05/24 07:47 Non-Smoker Yes 10/05/24 07:47 Duration of Surgery greater No 10/05/24 07:47 than 60 minutes Number of Risk Factors 2 10/05/24 07:47 PONV Score Moderate Risk 10/05/24 07:47 Height & Weight Height & Weight: Anesthesia: Height & Weight Height 5 ft 10/05/24 08:07 Weight: 42 kg 10/05/24 08:07 Body Mass Index (BMI) 18.1 10/05/24 08:07 Respiratory Assessment Respiratory Assessment - critical care physician assistant: Respiratory Tract Infection Hx - critical care physician assistant Hx Respiratory Tract Infection No 08/27/24 10:39 STOP Sleep Apnea STOP Sleep Apnea - critical care physician assistant: STOP Sleep Apnea - critical care physician assistant Hx Hypertension Yes 10/05/24 07:47 Hx Sleep Apnea No 10/05/24 07:47 CPAP BIPAP Do you snore loudly (louder No 10/05/24 07:47 than talking or can be heard Do you often feel tired/ No 10/05/24 07:47 fatigued/ sleepy during daytime? Has anyone observed you stop No 10/05/24 07:47 breathing during sleep? STOP Results Negative 10/05/24 07:47 QUESTION #5 FULL TEXT : Do you snore loudly (louder than talking or can be heard through closed doors)? Tobacco Use History Tobacco Use History - critical care physician assistant: Tobacco Use History - critical care physician assistant Tobacco Use Smoking Status Never smoker 10/05/24 07:47 Hx Tobacco Use No 10/05/24 07:47 Years Smoking Packs Smoked per Day Smoking Cessation Date was within the last 15 years Hx Smoking Cessation Date Hx Smoking Cessation Counseling Hematologic Medial History Hematologic Hx - critical care physician assistant: Hematologic Medical Hx - audio technician Hx of Blood Transfusion Hx of Transfusion in last 3 Months Date of Last Transfusion (if within last 3 months) Ever experience any problems with transfusion(s)? Specify any problems Hx of Preganancy in last 3 Months Nurse Filling Out Transfusion & Questions: Date: Time: Patient unable to answer at Yes 10/05/24 07:47 this time (ie. confused, unrespo /Reproduction History /Reproductive History - critical care physician assistant: /Reproductive Hx- critical care physician assistant Hx Now No 10/05/24 07:47 Gestational Age (in weeks): EDC: Hx Hx Para Hx Section SAB No 10/05/24 07:47 Active Medications Active Medications: Current Medications Generic Name Dose Route Start Last Admin Trade Name Freq PRN Reason Stop Dose Admin Lactated Ringer's 1,000 mls @ 15 mls/hr 10/05/24 07:30 IV .Q48H [facility] PFSH Medical History Anxiety Depression Constipation Acute bronchitis, unspecified Wears glasses Wears dentures Wears partial dentures Bladder disease Low iron Back pain Hypertension Difficulty swallowing History of hiatal hernia Gastric reflux Non-smoker Leg cramps Cardiology follow-up encounter History of CHF (congestive heart failure) History of heart attack Wears hearing aid in both ears Diabetes Dementia Dyslipidemia Iron deficiency anemia, unspecified Paroxysmal atrial fibrillation Atherosclerotic heart disease of [place] coronary artery without angina pectoris Persistent atrial fibrillation Gallstone of bile duct with gallbladder inflammation h/o throat surgery Hyperlipidemia Anemia Home Medications ?Medication ?Instructions ?Recorded ?Last Taken ?Type sertraline 50 mg tablet 50 mg PO DAILY 10/18/18 Unkn own History torsemide 20 mg tablet 20 mg PO DAILY 10/18/18 Unkn own History metformin 500 mg tablet 500 mg PO BID 05/12/22 Unkno wn History rivastigmine tartrate 3 mg capsule 3 mg PO BID 4 Unknown History mirtazapine 15 mg tablet 15 mg PO QHS 07/27/23 Unknow n History quetiapine 25 mg tablet 25 mg PO .qam 11/22/23 Unkno wn History pantoprazole 20 mg tablet,delayed 20 mg PO QDAY Unknown History release acetaminophen 500 mg capsule 500 mg PO Q4H PRN pain Unknown History magnesium hydroxide 400 mg/5 mL 5 ml PO DAILY PRN cons tipation 10/05/24 Unknown History oral suspension (Milk of Magnesia) quetiapine 50 mg tablet (Seroquel) 50 mg PO DAILY 09/09 10/02 Unknown History Allergy/AdvReac Type Severity Reaction Status Date / Time ticagrelor (From Brilinta) Allergy Shortness Verified 10/05/24 08:06 of breath Family History Other no pertinent family medical hsitory Family History unable to obtain Surgical History History of esophagogastroduodenoscopy (EGD) Hx of partial thyroidectomy History of esophagogastroduodenoscopy (EGD) H/O colonoscopy H/O eye surgery H/O heart artery stent Social History Smoking Status: Never smoker Review of Systems (Anesthesia) ROS Narrative System reviewed and no additional complaints, except as documented. 10/05/24 0837 <Electronically signed by Elina tolentino CRNA> Date _ Elina Alexander CRNA Cosigner Signature: Date CC: ~ Signed [facility] Work Phone: Consult note Author Artem Oh [facility] Note Date/Time October 05, 2024 10 :06am [facility] Medical Records Department [address] [place] [address] Anesthesia Postop Eval I 10/05/24920 MR#: [id number] Acct: [id number] Name: RICARDO VILLALPANOD Rep #:[id number] : 1940 83 From: Artem Oh PCP: Alisson Morton DO Status:REG SDC Y Race: C Location: [place] [address] Anesthesia: Postop Eval I Current Vital Signs Temperature: 97.7 F Pulse Rate: 76 Blood Pressure: 118/66 Respiratory Rate: 16 Pulse Ox: 97 Oxygen Delivery Method: Room Air Assessment Airway patent: Yes Spontaneous unlabored respirations: Yes Mental status: Asleep nausea: No Vomiting: No Anesthesia Complication: No Fluid Hydration Crystalloid volume administer (ml): 300 Total IV fluid infused: 300 Progress Note Anesthesia document: Postop Eval 1 completed: Yes 10/05/24920 <Electronically signed by Artem Oh > Date _ Artem Camaraigner Signature: Date CC: ~ Signed [facility] Work Phone: Evaluation note* Diagnosis Left thyroid [...] Evaluation noteNo assessment information available [facility] Work Phone: Evaluation note* Diagnosis 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) documented in this encounter [facility] Work Phone: Evaluation note* Diagnosis Onset Date Resolution Status Dysphagia acute History of esophageal stricture acute History of hypertension acut e [facility] Work Phone: Evaluation note* Diagnosis Other specified symptoms and signs involving the circulatory and respiratory systems [facility] Diagnosis Anemia- Primary Unspecified anemia Anemia Unspecified anemia Hyponatremia Hyposmolality and/or hyponatremia Hepatitis Unspecified hepatitis documented in this encounter [facility] note* Diagnosis Coronary artery disease involving [place] coronary artery of [place] heart without angina pectoris- Primary Persistent atrial fibrillation (HCC) Atrial fibrillation Mixed hyperlipidemia documented in this encounter [facility] note* Diagnosis Other specified symptoms and signs involving the circulatory and respiratory systems- Primary Other specified symptoms and signs involving the circulatory and respiratory systems documented in this encounter [facility] note* Diagnosis Other specified abnormal findings of blood chemistry documented in this encounter [facility] note* Diagnosis Other persistent atrial fibrillation (HCC)- Primary documented in this encounter [facility] note* Diagnosis Hyperlipidemia, unspecified- Primary documented in this encounter [facility] note* Diagnosis Onset Date Resolution Status Dysphagia acute Alzheimer's dementia [facility] Work Phone: Evaluation note* Diagnosis Injury of head, initial encounter- Primary documented in this encounter [facility] note* Diagnosis Dorsalgia, unspecified- Primary Unspecified urinary incontinence documented in this encounter [facility] note* Diagnosis Coronary artery disease involving [place] coronary artery of [place] heart without angina pectoris- Primary Persistent atrial fibrillation (HCC) Atrial fibrillation Mixed hyperlipidemia Vascular dementia, unspecified dementia severity, unspecified whether behavioral, psychotic, or mood disturbance or anxiety ([facility]) documented in this encounter [facility] note* Diagnosis Other specified abnormal findings of blood chemistry documented in this encounter [facility] note* Diagnosis Other specified diseases of liver documented in this encounter [facility] note* Diagnosis Dysphagia Esophageal obstruction Stricture and stenosis of esophagus Dementia (HCC) Other persistent mental disorders due to conditions classified elsewhere Stented coronary artery Postsurgical percutaneous transluminal coronary angioplasty status documented in this encounter [facility] note* Diagnosis Eosinophilic esophagitis- Primary documented in this encounter [facility] note* Diagnosis Eosinophilic esophagitis- Primary documented in this encounter [facility] note* Diagnosis Eosinophilic esophagitis- Primary documented in this encounter [facility] note* Diagnosis Eosinophilic esophagitis- Primary [facility] Diagnosis Other specified abnormal findings of blood chemistry- Primary Other specified abnormal findings of blood chemistry [facility] Diagnosis Other specified abnormal findings of blood chemistry- Primary Other specified abnormal findings of blood chemistry [facility]* Diagnosis Other specified diseases of liver- Primary Other specified diseases of liver documented in this encounter [facility] note* Diagnosis Coronary artery disease involving [place] coronary artery of [place] heart without angina pectoris- Primary Persistent atrial fibrillation (HCC) Atrial fibrillation Mixed hyperlipidemia documented in this encounter [facility] Discharge instructions* Instructions* Juanis Maldonado RN - 03/07/2019 Upper GI Endoscopy: What [...] mild sore throat. You may use an joff-zgm-ppumyjz chloraseptic spray, gargle with warm salt water, [...] an upset belly after: o Coffee o [place] fruits and juices o Tomato products o [...] 2013-11-16 Last Updated 02/15/16 [facility] Discharge instructions* Attachments The following attachments cannot be sent through Care Everywhere. * Upper GI Endoscopy Discharge Instructions (Chilean) [facility] (narrative)No reason for referral information availableFresno [facility] Work Phone: Reason for visit Narrative* Imaging (Routine) - Closed Specialty Diagnoses / Procedures Referred By Contac t Referred To Contact Radiology Diagnoses Other specified diseases of liver Procedures MR abdomen w and wo contrast Alisson Morton, DO [address] [place] [address] Phone: tel: fax: [facility] MRI [address] [place] [address] Phone: tel: Referral ID Status Reason Start Date Expiration Date Visits Re quested Visits Authorized [id number] Closed 12/01/2023 11/30/2024 1 1 [facility] History of Present Illness * [...] CBC. Discussed with patient, daughter, and staffing specialist. Will continue to monitor. OK to discharge [...] of bowel prep for colonoscopy tomorrow. No rn paralegal concerns at this time. * Haily Mcghee [...] 15 08/05/2018 Lab Results Component Value Date [id number] 815 08/06/2018 Lab Results Component Value Date FOLATE >20.0 08/06/2018 LDH 182 ASSESSMENT AND PLAN Review of records from [facility] reveals that patient did in fact receive complete course of Venoferinfusions - the last being 09/06/2018. Colonoscopy tomorrow. RBC morphology still pending. Discussedwith patient and staffing specialist. Will continue to monitor. Total visit time > 35 minutes. * Madison Jane, MULTI MEDIA SPECIALIST - 09/20/2018 1:00 PM EDT Physical Therapy Facility/Department: [facility] TELEMETRY Daily Treatment Note NAME: Ricardo Villalpando [...] GBS colonization of urine 8. Hx of CAD/VA/stents recently on ASA and Plavix, Cardiology will not agree to withholding either at this time 9. Hx of anemia and transfusions, ? of MDS, will re-consult Dr. Amin 10. Vaginal bleeding, consult [employer] no workup needed Plan Colonoscopy tomorrow Advance Directive: Full Code DVT prophylaxis scd's Active Problems: Coronary artery disease involving [place] coronary artery of [place] heart without angina pectoris Abdominal pain Resolved [...] Risksreviewed .Active Problems: Coronary artery disease involving [place] coronary artery of [place] heart without angina pectoris Abdominal pain Resolved [...] 2. Active Problems: Coronary artery disease involving [place] coronary artery of [place] heart without angina pectoris Abdominal pain Resolved Problems: * No resolved hospital problems. * DIMITRIS CAVAZOS MD * Constance Crenshaw, FUNERAL DRIVER - JAVA SPRING DEVELOPER - 09/19/2018 11:46 AM EDT CARDIOLOGY PROGRESS [...] AC Active Problems: Coronary artery disease involving [place] coronary artery of [place] heart without angina pectoris Abdominal pain Resolved [...] 150/78 Pulse: 89 82 92 101 Resp: 18 16 Temp: 98.1 F (36.7 C) 97.9 [...] collapses by greater than 50% with inspiration. C: 08/04/2018 1. Acute coronary syndrome. Reperfusion was [...] team, GI and heme/onc Vaginal bleeding - [facility] consulted Dispo: will continue to follow Electronicallysigned [...] due to elevated lipase over weekend - [employer] consulted for vaginal bleeding - Regular Diet - prn pain/nausea medication - activity as tolerated - disposition: stable from surgery standpoint, continue po ABX,, f/u with Dr. Ash in 1 month Patient counseled on risks, benefits, and alternatives of treatment plan today. Patient states an understanding and willingness to proceed with plan. Adela Reeves PA-C Personal Pager [phone] [facility] Surgery Pager [phone] during hours 7:30a-4:30p Wednesday-Wednesday After hours, please contact physician automobile brake bonder. * Seema Cabral MD - 09/18/2018 2:38 PM EDT Progress [...] GBS colonization of urine 8. Hx of CAD/VA/stents recently on ASA and Plavix, Cardiology will not agree to withholding either at this time 9. Hx of anemia and transfusions, ? of MDS, will re-consult Dr. Amin 10. Vaginal bleeding, consult [employer] Advance Directive: Full Code DVT prophylaxis scd's Discharge planning: home Active Problems: Coronary artery disease involving [place] coronary artery of [place] heart without angina pectoris Abdominal pain Resolved Problems: * No resolved hospital problems. * Seema Cabral MD * Franklin Aviles, PT - 09/18/2018 10:32 AM EDT Physical Therapy Facility/Department: [facility] TELEMETRY Daily Treatment Note NAME: Ricardo Villalpando [...] Time Individual Concurrent Group Co-treatment Time In 56 Time Out 1010 Minutes 14 Timed Code Treatment Minutes: 14 Minutes(gait training) Franklin Aviles PT * Noelle Manrique, FUNERAL DRIVER - JAVA SPRING DEVELOPER - 09/18/2018 10:21 AM EDT CARDIOLOGY PROGRESS NOTE Chart and interval events reviewed. Reason for Visit hospital follow up CAD SUBJECTIVE: Ricardo Jerilyn Kwasi states abd pain resolved. No CP (was anginal sx w/VA), palpitations, dizziness, syncope. Up in chair in [...] AC Active Problems: Coronary artery disease involving [place] coronary artery of [place] heart without angina pectoris Abdominal pain Resolved [...] requiring transfusions -per primary Electronicallysigned by KALYN JOHNOSN CNP on 09/18/2018 at 10:22 AM * Kiko Lau MD - 09/18/2018 9:36 AM EDT Department of Internal Medicine Gastroenterology Attending Progress Note SUBJECTIVE: Denies abd pain. Per dtr has had rectal or vaginal bleeding. Had -ve rn paralegal eval 1 week ago. Was treated with [...] per surgery and cardiology due to recent VA, stents, anticoag. Begin Yeny in the interim. [...] Data Recent Labs 09/15/18 1355 09/16/18 0446 09/18/18 0352 WBC 8.8 8.1 8.9 HGB 12.0 11.3* 11.8 HCT 36.5 34.0* 36.2 PLT 275 247 281 Recent Labs 09/16/186 09/17/1843009/18/18 0352 NA 135 139 136 K 3.2* 3.3* 3.6 CL 99 104 102 CO2 29 27 28 BUN 11 8 10 CREATININE 0.75 0.66 0.70 GLUCOSE 131* 141* 133* Recent Labs 09/16/1844509/17/1843009/18/18 0352 AST 133* 76* 69* ALT 145* [...] prn pain/nausea medication - activity as tolerated Pager:[phone] Associated attestation - Donald Ash MD - [...] High Nutrient Needs: Estimated Daily Total Kcal: 0351-6607 Estimated Daily Protein (g): 55-66 Nutrition Diagnosis: [...] , 12.9% wt loss in 2 mo Hickman Body Wt: 115 lb (52.2 kg), % Hickman Body 106% BMI Classification: BMI 18.5 - [...] They would most likely benefit from a machine fastener consult. Spoke to Dr. Cabral re: family and pt. Concerns. He reported placing a consult in for them. Thania Roldan OT * Seema Cabral MD - 09/17/2018 1:59 PM EDT Progress [...] GBS colonization of urine 7. Hx of CAD/VA/stents recently on ASA and Plavix, Cardiology will not agree to withholding either at this time 8. Hx of anemia and transfusions Advance Directive: Full Code DVT prophylaxis scd's Discharge planning: home Active Problems: Abdominal pain Resolved Problems: * No resolved hospital problems. * Seema Cabral MD * Elvie Beltran - 09/17/2018 9:05 [...] Date 09/17/18 0000 - 09/17/18 2359 Shift 3197-3440 6462-6581 5620-0145 24 Hour Total INTAKE I.V.(mL/kg) 900(16.2) 900(16.2) [...] need for surgical intervention; patient recently had VA with 2x stents in August 04 2018, on dual antiplatelet therapy. - Epigastric/RUQ abdominal pain resolved - Regular Diet - Attempt non-operative management secondary to recent stents, start PO Augmentin - HIDA scan cancelled - GI following - prn pain/nausea medication - activity as tolerated Pager:[phone] * Dimitris Cavazos MD - 09/16/2018 3:09 [...] 09/16/2018 11:21 AM EDT Patient arrived to [facility] for her Hida Scan. Her IV was [...] 09/16/2018 10:15 AM EDT Physical Therapy Facility/Department: [facility] TELEMETRY Initial Assessment NAME: Ricardo Villalpando : [...] Care;General Safety Barriers to Learning: Pt is [place] which may impact her ability to learn [...] Left in bed, Nurse notified OutComes Score AM-PAC Mobility Inpatient How much difficulty turning over [...] climbing 3-5 steps with a railing?: Total AM-[facility] Inpatient Mobility Raw Score : 16 AM-PAC Inpatient T-Scale Score : 40.78 Mobility Inpatient CMS 0-100% Score: 54.16 Mobility Inpatient CMS G-Code Modifier : CK AM-PAC Score AM-PAC Inpatient Mobility Raw Score : 16 (09/16/181004) AM-PAC Inpatient T-Scale Score : 40.78 (09/16/181004) Mobility [...] pain, unspecified site Coronary artery disease involving [place] coronary artery of [place] heart without angina pectoris Iron deficiency anemia Iron deficiency anemia, unspecified Diagnosis Coronary artery disease involving [place] coronary artery of [place] heart without angina pectoris Dyslipidemia Other and unspecified hyperlipidemia Diagnosis Nontoxic single thyroid nodule Nontoxic uninodular goiter Diagnosis Thyroid nodule Nontoxic uninodular goiter Advance Directives No Advanced Directives Records FoundDocuments on File Type Date Recorded Patient Range Mounter Expl anation Advance Directives and Livin g Will Advance Directives and Livin g Will 08/09/2018 2:28 PM Advance Directives and Livin g Will 08/19/2018 2:08 PM Power of Shactor Helper Latest Code Status on File Code Status Date Activated Date Inactivated Comments Full Code 09/15/2018 1:35 PM Full Code 08/04/2018 8:50 PM 08/08/2018 6:48 PM Full Code 08/04/2018 8:50 PM 08/04/2018 8:50 PM Documents on File Type Date Recorded Patient Range Mounter Expl anation Advance Directives and Livin g Will Advance Directives and Livin g Will 08/09/2018 2:28 PM Advance Directives and Livin g Will 08/19/2018 2:08 PM Advance Directives and Livin g Will 02/22/2019 10:08 AM Advance Directives and Livin g Will 03/09/2019 1:06 PM Power of Shactor Helper Latest Code Status on File Code Status Date Activated Date Inactivated Comments Full Code 02/14/2019 10:08 AM 02/18/2019 4:36 PM Full Code 02/11/2019 12:28 PM 02/14/2019 10:08 AM Full Code 09/15/2018 1:35 PM 09/21/2018 7:54 PM Documents on File Type Date Recorded Patient Range Mounter Expl anation Advance Directives and Livin g Will Advance Directives and Livin g Will 08/09/2018 2:28 PM Advance Directives and Livin g Will 08/19/2018 2:08 PM Advance Directives and Livin g Will 02/22/2019 10:08 AM Advance Directives and Livin g Will 03/09/2019 1:06 PM Advance Directives and Livin g Will 04/05/2019 3:18 PM Power of Shactor Helper Documents on File Type Date Recorded Patient Range Mounter Expl anation ACP-Advance Directive ACP-Advance Directive 08/09/2018 2:28 PM ACP-Advance Directive 08/19/2018 2:08 PM ACP-Advance Directive 02/22/2019 10:08 AM ACP-Advance Directive 03/09/2019 1:06 PM ACP-Advance Directive 04/05/2019 3:18 PM ACP-Power of Shactor Helper Documents on File Type Date Recorded Patient Range Mounter Expl anation ACP-Advance Directive ACP-Advance Directive 08/09/2018 2:28 PM ACP-Advance Directive 08/19/2018 2:08 PM ACP-Advance Directive 02/22/2019 10:08 AM ACP-Advance Directive 03/09/2019 1:06 PM ACP-Advance Directive 04/05/2019 3:18 PM ACP-Power of Shactor Helper Latest Code Status on File Code Status Date Activated Date Inactivated Comments Full Code 02/14/2019 10:08 AM 02/18/2019 4:36 PM Full Code 02/11/2019 12:28 PM 02/14/2019 10:08 AM Full Code 09/15/2018 1:35 PM 09/21/2018 7:54 PM Full Code 08/04/2018 8:50 PM 08/08/2018 6:48 PM Full Code 08/04/2018 8:50 PM 08/04/2018 8:50 PM Documents on File Type Date Recorded Patient Range Mounter Expl anation ACP-Advance Directive ACP-Power of Shactor Helper ACP-Advance Directive 04/05/2019 3:18 PM ACP-Advance Directive 03/09/2019 1:06 PM ACP-Advance Directive 02/22/2019 10:08 AM ACP-Advance Directive 08/19/2018 2:08 PM ACP-Advance Directive 08/09/2018 2:28 PM Latest Code Status on File Code Status Date Activated Date Inactivated Comments Full Code 02/14/2019 10:08 AM Documents on File Type Date Recorded Patient Range Mounter Expl anation Advance Directives and Livin g Will Advance Directives and Livin g Will 08/09/2018 2:28 PM Advance Directives and Livin g Will 08/19/2018 2:08 PM Advance Directives and Livin g Will 02/22/2019 10:08 AM Power of Shactor Helper Advance Directive Response Recorded Date/ Time Living Will No February 10 0 3:40pm Power of Shactor Helper Yes February 10 020 3:40pm Advance Directive Response Recorded Date/ Time Name of Medical Power of Shactor Helper Margarita gottlieb May 12, 2022 12:29pm Living Will Yes May 12, 2022 12:29pm Power of Shactor Helper Yes May 12 12:29pm Advance Directive Response Recorded Date/ Time Name of Medical Power of Shactor Helper Margarita gottlieb May 12, 2022 12:29pm Name of Medical Power of Shactor Helper MARGARITA RIVAS June 01, 2022 8:32pm Living Will Yes June 01, 2022 8:32pm Power of Shactor Helper Yes June 01 8:32pm Documents on File Type Date Recorded Patient Range Mounter Expl anation Advance Directives and Living Will 04/04/2019 Advance Directives and Living Will 03/07/2019 Advance Directives and Living Will 02/11/2019 Latest Code Status on File Code Status Date Activated Date Inactivated Comments Full Code 06/13/2022 4:30 PM Healthcare Agents on File Name Relationship Healthcare Agent Relationshi p Communication Margarita Rivas Child Health Care Agent Documents on File Type Date Recorded Patient Range Mounter Expl anation Advance Directives and Living Will 04/04/2019 Advance Directives and Living Will 03/07/2019 Advance Directives and Living Will 02/11/2019 Latest Code Status on File Code Status Date Activated Date Inactivated Comments Full Code 06/13/2022 4:30 PM 06/16/2022 10:36 PM Healthcare Agents on File Name Relationship Healthcare Agent Relationshi p Communication Margarita Maguireali Child Health Care Agent [phone] (Home) Healthcare Agents on File Name Relationship Healthcare Agent Relationshi p Communication Margarita Maguireali Child Health Care Agent Healthcare Agents on File Name Relationship Healthcare Agent Relationshi p Communication Margarita Maguireali Child Health Care Agent [phone] (Home) Latest Code Status on File Code Status Date Activated Date Inactivated Comments Full Code 06/13/2022 4:30 PM 06/16/2022 10:36 PM Healthcare Agents on File Name Relationship Healthcare Agent Relationshi p Communication Margarita Maguireali Child Health Care Agent [phone] (Home) Healthcare Agents on File Name Relationship Healthcare Agent Relationshi p Communication Margarita Maguireali Child Health Care Agent [phone] (Home) Healthcare Agents on File Name Relationship Healthcare Agent Relationshi p Communication Margarita Demali Child Health Care Agent Advance Directive Response Recorded Date/ Time Living Will Yes June 01, 2022 8:32pm Power of Shactor Helper Yes June 01 8:32pm Healthcare Agents on File Name Relationship Healthcare Agent Relationshi p Communication Margarita Demali Child Health Care Agent [phone] (Home) [email or web address] Healthcare Agents on File Name Relationship Healthcare Agent Relationshi p Communication Margarita Demali Child Health Care Agent [phone] (Home) [email or web address] Healthcare Agents on File Name Relationship Healthcare Agent Relationshi p Communication Margarita Demali Child Health Care Agent [phone] (Home) [email or web address] Healthcare Agents on File Name Relationship Healthcare Agent Relationshi p Communication Margarita Andrezali Child Health Care Agent [email or web address] Advance Directive Response Recorded Date/ Time Name of Medical Power of Shactor Helper DAUGHTER December 29, 2022 12:22pm Living Will Yes December 29, 023 12:22pm Power of Shactor Helper Yes December 29, 2022 12:22pm Advance Directive Response Recorded Date/ Time Name of Medical Power of Shactor Helper DAUGHTER December 29, 2022 12:22pm Name of Medical Power of Shactor Helper daughter April 04, 2023 11:12am Living Will Yes April 04, 024 11:12am Power of Shactor Helper Yes April 04, 2023 11:12am Healthcare Agents on File Name Relationship Healthcare Agent Relationshi p Communication Margarita Demali Child Health Care Agent [phone] (Home) [email or web address] Healthcare Agents on File Name Relationship Healthcare Agent Relationshi p Communication Margarita Demali Child Health Care Agent [phone] (Home) [email or web address] Date Activated Date Inactivated Comments 06/13/2022 4:30 PM 06/16/2022 10:36 PM Healthcare Agents on File Name Relationship Healthcare Agent Relationshi p Communication Margarita Demali Child Health Care Agent [email or web address] Healthcare Agents on File Name Relationship Healthcare Agent Relationshi p Communication Margarita Rivas Child Health Care Agent [email or web address] Healthcare Agents on File Name Relationship Healthcare Agent Relationshi p Communication Margarita Rivas Child Health Care Agent [email or web address] Date Activated Date Inactivated Comments 06/13/2022 4:30 PM 06/16/2022 10:36 PM Healthcare Agents on File Name Relationship Healthcare Agent Relationshi p Communication Margarita Rivas Child Health Care Agent [email or web address] Healthcare Agents on File Name Relationship Healthcare Agent Relationshi p Communication Margarita Rivas Child Health Care Agent [email or web address] Healthcare Agents on File Name Relationship Healthcare Agent Relationshi p Communication Margarita Rivas Daughter Health Care Agent [email or web address] Advance Directive Response Recorded Date/ Time Do you have a Healthcare Power of Shactor Helper? Yes October 05, 2024 7:47am Summary Purpose Family History No Family History Records Found Relationship Condition Age at Onset Recorded Date/T ranjana Not Specified Unknown Reason for Referral Status Reason Specialty Diagnoses / Procedures Referre d By Contact Referred To Contact Open Radiology Diagnoses Thyroid nodule Procedures US FINE NEEDLE ASPIRATION Zoe Wyatt APRN - JAVA SPRING DEVELOPER [address] [facility] [address] [place] [address] Status Reason Specialty Diagnoses / Procedures Referre d By Contact Referred To Contact Open Radiology Diagnoses Thyroid nodule Procedures US Thyroid Zoe Wyatt APRN - JAVA SPRING DEVELOPER [address] [facility] [address] [place] [address] Status Reason Specialty Diagnoses / Procedures Referre d By Contact Referred To Contact Open Radiology Diagnoses Left thyroid nodule Procedures US GUIDED THYROID BIOPSY Adela Davenport PA-C [address] [facility] [address] [place] [address] Specialty Diagnoses / Procedures Referred By Elzbieta t Referred To Contact Cardiology Diagnoses Other specified symptoms and signs involving the circulatory and respiratory systems Procedures Vascular US carotid artery duplex bilateral Alisson Morton, DO [address] [place] [address] Referral ID Status Reason Start Date Expiration Date Visits Requested Visits Authorized [id number] Pending Review Perform Procedure 05/27/2022 11/23/2022 1 1 Discharge Instructions * Attachments The following attachments cannot be sent through Care Everywhere. * Thyroid: Biopsy: Fine-Needle: Post-op (Chilean) * Thyroid Nodules (Chilean) documented in this encounter Chief Complaint and [...] Dysphagia Alzheimer's dementia Chief Complaint Admit Date [facility] WORK March 16, 2024 5:00am MONTHLY [...] :15pm needs to schedule esophagus stretching J [facility] 2024 9:09am Reason for Visit Admit Date [...] schedule esophagus stretching J jw 2024 9:09am [facility] WORK September 14, 2024 4 :00am Reason for Visit Admit Date Dysphagia August 18, 2024 9:09 am Esophageal stenosis August 18, 2024 9:09 am Dysphagia October 05, 2024 7: 18am Esophageal stenosis October 05, 2024 7: 18am Additional Source Comments INFORMATION SOURCE (unrecogn ized section and content) DATE CREATED AUTHOR 03/21/2019 [facility] DATE CREATED AUTHOR AUTHOR'S ORGANIZ ATION 07/01/2019 [facility] DATE CREATED AUTHOR AUTHOR'S ORGANIZ ATION 10/07/2019 [facility] DATE CREATED AUTHOR AUTHOR'S ORGANIZ ATION 12/02/2019 [facility] ([place]) DATE CREATED AUTHOR AUTHOR'S ORGANIZ ATION 05/16/2021 [facility] DATE CREATED AUTHOR AUTHOR'S ORGANIZ ATION 08/23/2024 [facility] DATE CREATED AUTHOR AUTHOR'S ORGANIZ ATION 12/09/2024 Elzbieta [facility] Reason for Visit (unrecogniz ed section and content) Reason Comments Other transfer. Dx with ch olecystitis Specialty Diagnoses / Procedures Referred By Elzbieta t Referred To Contact Cardiology Diagnoses Other specified symptoms and signs involving the circulatory and respiratory systems Procedures Vascular US carotid artery duplex bilateral Alisson Morton, DO [address] [place] [address] Referral ID Status Reason Start Date Expiration Date Visits Requested Visits Authorized [id number] Pending Review Perform Procedure 05/27/2022 11/23/2022 1 1 Reason Comments Leg Swelling Specialty Diagnoses / Procedures Referred By Contac t Referred To Contact Diagnoses Hyponatremia Anemia Hepatitis Procedures . Alisson Morton, DO [address] [place] [address] [facility] 2e Telemetry [address] [place] [address] Referral ID Status Reason Start Date Expiration Date Visits Re quested Visits Authorized [id number] 1 Reason Comments Med Refill Reason Comments 1 Year Follow-up Coronary Artery Disease Reason Onset Date Comments Cardiac Clearance 12/09/2022 Reason Onset Date Comments Fall 07/20/2023 Reason Onset Date Comments Cardiac Clearance 07/23/2023 Specialty Diagnoses / Procedures Referred By Contac t Referred To Contact Diagnoses Dysphagia Dysphagia [[email or web address]] Procedures [place] ESOPHAGOGASTRODUODENOSCOPY TRANSORAL DIAGNOSTIC EGD DIAGNOSTIC Mykel Powell MD [address] [place] [address] [address] [place] [address] [facility] [address] [place] [phone] Referral ID Status Reason Start Date Expiration Date Visits Re quested Visits Authorized [id number] 1 1 Reason Onset Date Comments Medication [...] Care Teams (unrecognized sec tion and content) Welder Repair Relationship Specialty Start Date End Date Alisson Morton, [address] [place] [address] PCP - General 09/05/18 Team Status: Active [...] Dr. Xavier Younger MD Emergency Provider Active Welder Repair Relationship Specialty Start Date End Date [facility] [address] [place] [address] PCP - General 02/10/22 Alisson Morton DO Family Medicine 01/12/22 Welder Repair Relationship Specialty Start Date End Date [facility] [address] [place] [address] PCP - General 02/10/22 06/14/22 Alisson Morton DO [address] [place] [address] [place] [address] PCP - General Family Medicine 06/15/22 Alisson Morton DO Family Medicine 01/12/22 Welder Repair Relationship Specialty Start Date End Date Alisson Morton DO [address] [place] [address] [place] [address] PCP - General Family Medicine 06/15/22 Alisson Morton DO Family Medicine 01/12/22 Welder Repair Relationship Specialty Start Date End Date Alisson Morton DO [address] [place] [address] [place] [phone] PCP - General Family Medicine 06/15/22 Alisson Morton DO Family Medicine 01/12/22 Welder Repair Relationship Specialty Start Date End Date [facility] [address] [place] [address] PCP - General 02/10/22 06/14/22 Alisson Morton DO [address] [place] [address] [place] [address] PCP - General Family Medicine 06/15/22 Alisson Morton DO Family Medicine 01/12/22 Welder Repair Relationship Specialty Start Date End Date lAisson Morton DO [address] [place] [address] [place] [address] PCP - General Family Medicine 06/15/22 Alisson Morton DO Family Medicine 01/12/22 Welder Repair Relationship Specialty Start Date End Date Alisson Morton DO [address] [place] [address] [place] [address] PCP - General Family Medicine 06/15/22 Alisson Morton DO Family Medicine 01/12/22 Team Status: Inactive Member Role Status Dates Dr. Alisson Morton , DO Primary Care Provider Active Fallon Mcclendon NP, WORKFORCE ANALYST-C Attending Provider Active Team Status: Inactive Member Role Status Dates Dr. Alisson Morton DO Primary Care Provider Active Dr. Anabel Duvall MD Attending Provider Active Team Status: Active Member Role Status Dates Dr. Alisson Morton DO Primary Care Provider Active Anabel WALSH MD Attending Provider Active Team Status: Active Member Role Status Dates Dr. Alisson Morton , Primary Care Provider Active Fallon WALSH WORKFORCE ANALYST-C Attending Provider, Referrin g Provider Active Team Status: Inactive Member Role Status Dates Dr. Alisson Morton , DO Primary Care Pro vider, Attending Provider, Referring Provider Active Welder Repair Relationship Specialty Start Date End Date Alisson Morton DO [address] [place] [address] [place] [address] PCP - General Family Medicine 06/15/22 Alisson Morton DO Family Medicine 01/12/22 Welder Repair Relationship Specialty Start Date End Date Alisson Morton DO [address] [place] [address] [place] [address] PCP - General Family Medicine 06/15/22 Alisson Morton DO Family Medicine 01/12/22 Team Status: Active Member Role Status Dates Dr. Alisson Morton , Primary Care Provider, Referri ng Provider Active Dr. Roque Herrera DO Attending Provider, Other Prov ider Active Team Status: Inactive Member Role Status Dates Dr. Alisson Morton , Primary Care Provider, Referri ng Provider Active Dr. Roque Hererra , DO Attending Provider Active Team Status: Inactive Member Role Status Dates Dr. Alisson Morton , Primary Care Provider Active Memo Naqvi MD Emergency Provider Active Welder Repair Relationship Specialty Start Date End Date Alisson Morton DO [address] [place] [address] [place] [phone] PCP - General Family Medicine 06/15/22 Alisson Morton DO Family Medicine 01/12/22 Welder Repair Relationship Specialty Start Date End Date Alisson Morton DO [address] [place] [address] [place] [address] PCP - General Family Medicine 06/15/22 Alisson Morton DO Family Medicine 01/12/22 Welder Repair Relationship Specialty Start Date End Date Alisson Morton DO [address] [place] [address] [place] [address] PCP - General Family Medicine 06/15/22 Alisson Morton DO Family Medicine 01/12/22 Welder Repair Relationship Specialty Start Date End Date Alisson Morton DO [address] [place] [address] [place] [phone] PCP - General Family Medicine 06/15/22 Alisson Morton DO Family Medicine 01/12/22 Welder Repair Relationship Specialty Start Date End Date No, Pcp [address] [place] [address] PCP - General 02/10/22 Alisson Morton, DO [address] [place] [address] [place] [phone] Family Medicine 01/12/22 Welder Repair Relationship Specialty Start Date End Date No, Pcp [address] [place] [address] PCP - General 02/10/22 Alisson Morton, Family Medicine 01/12/22 Welder Repair Relationship Specialty Start Date End Date No, Pcp [address] [place] [address] PCP - General 02/10/22 Alisson Morton, Family Medicine 01/12/22 Welder Repair Relationship Specialty Start Date End Date No, Pcp [address] [place] [address] PCP - General 02/10/22 Alisson Morton, Family Medicine 01/12/22 Welder Repair Relationship Specialty Start Date End Date No, Pcp [address] [place] [address] PCP - General 02/10/22 Alisson Morton, DO [...] 2024 End: April 10, 2024 Fallon Mcclendon WORKFORCE ANALYST, WORKFORCE ANALYST-C Attending Provider Active Start: April 10, 2024 [...] August 18, 2024 End: August 18, 2024 Welder Repair Relationship Specialty Start Date End Date Alisson Morton DO [address] [place] [address] [place] [phone] PCP - General Family Medicine 06/15/22 Alisson [...] 27, 2024 End: August 27, 2024 Osmar H Roof WORKFORCE ANALYST, WORKFORCE ANALYST-C Attending Provider Active S tart: August 27, 2024 End: August 27, 2024 Team Status: Inactive Member Role/Relationship Status Dates Dr. Alisson Morton DO Primary Care Provider Active Start: July 17, 2024 End: July 17, 2024 Osmar Mendoza WORKFORCE ANALYST, WORKFORCE ANALYST-C Attending Provider Active S tart: July 17, 2024 End: July 17, 2024 Team Status: Inactive Member Role/Relationship Status Dates Dr. Alisson Morton DO Primary Care Provider Active Start: July 25, 2024 End: July 25, 2024 Fallon Mcclendon WORKFORCE ANALYST, WORKFORCE ANALYST-C Attending Provider Active Start: July 25, 2024 [...] 2024 End: July 17, 2024 Osmar Mendoza WORKFORCE ANALYST, WORKFORCE ANALYST-C Attending Provider Active S tart: July 17, 2024 End: July 17, 2024 Team Status: Inactive Member Role/Relationship Status Dates Dr. Alisson Morton DO Primary Care Provider Active Start: July 25, 2024 End: July 25, 2024 Fallon Mcclendon WORKFORCE ANALYST, WORKFORCE ANALYST-C Attending Provider Active Start: July 25, 2024 [...] End: July 17, 2024 Fallon Mcclendon NP, WORKFORCE ANALYST-C Attending Provider Active Start: July 17, 2024 End: July 17, 2024 Team Status: Inactive Member Role/Relationship Status Dates Dr. Alisson Morton DO Primary Care Provider Active Start: October 05, 2024 End: October 05, 2024 Dr. Alisson Morton DO Referring Provider Active Start: October 05, 2024 End: October 05, 2024 Dr. Roque Herrera DO Attending Provider Active Start: October 05, 2024 End: October 05, 2024 Team Status: Active Member Role/Relationship Status Dates Dr. Alisson Morton DO Primary Care Provider Active Start: October 05, 2024 Dr. Alisson Morton DO Referring Provider Active Start: October 05, 2024 Dr. Roque Herrera DO Attending Provider Active Start: October 05, 2024 Dr. Roque Herrera DO Other Provider Active St art: October 05, 2024 Scheduled Active and Recently Administ ered Medications (unrecognized section and content) Medication Order 06/14/2022 06/15/2022 06/16/2022 dicyclomine (Bentyl) capsule 10 mg 10 mg, Oral, 3 times daily, First dose on 06/13/22 at 1645 0832 (Given - Provider: Lennie Aguilar, ELEAZAR)1622 (Given - Provider: Lennie Aguilar, ELEAZAR)2118 (Given - Provider: Ashley Gutierrez, ELEAZAR) 0859 (Given - Provider: Lennie Aguilar, ELEAZAR)1607 (Given - Provider: Lennie Aguilar RN)203 (Given - Provider: Fiordaliza Del Castillo, ELEAZAR) 0912 (Given - Provider: Nicole Boles, ELEAZAR)1357 (Given - Provider: Nicole Boles, ELEAZAR)2100 (Canceled [...] RCP) 0852 (Given - Provider: Gurinder Elizondo RCP)2000 (Canceled Entry - Provider: Automatic Discharge Provider - Comment: Automatically canceled at discontinue of medication order) iron sucrose (Venofer) 200 mg in sodium chloride 0.9 % 100 mL IVPB 200 mg, IntraVENous, at 300 mL/hr, Administer over 20 Minutes, Every 24 hours, First dose on 06/15/22 at 1000, For 3 doses, Observe for [...] Lennie Aguilar RN)211 (Given - Provider: Ashley Gutierrez, ELEAZAR) 0857 (Given - Provider: Lennie Aguilar RN)2029 [...] Nicole Boles, ELEAZAR)1717 (Given - Provider: Nicole Boles, ELEAZAR) metoprolol tartrate (Lopressor) tablet 25 mg 25 mg, Oral, 2 times daily, First dose on 06/13/22 at 2100 0832 (Given - Provider: Lennie Aguilar RN)211 (Given - Provider: Ashley Gutierrez, ELEAZAR) 0859 (Given - Provider: Lennie Aguilar RN)2030 (Given - Provider: Fiordaliza Del Castillo, ELEAZAR) 0912 (Given - Provider: Nicole Boles, ELEAZAR)2099 (Canceled Entry - Provider: Automatic Discharge Provider - Comment: Automatically canceled at discontinue of medication order) mirtazapine (Remeron) tablet 15 mg 15 mg, Oral, Nightly, First dose on 06/13/22 at 2100 2118 (Given - Provider: Ashley Gutierrez, ELEAZAR) 2029 (Given - Provider: Fiordaliza Del Castillo, ELEAZAR) 2099 (Canceled Entry - Provider: Automatic Discharge Provider - Comment: Automatically canceled at discontinue of medication order) pantoprazole (ProtoNix) EC tablet 40 mg 40 mg, Oral, Daily before breakfast, First dose on Wed06/14/22 at 0700, Do not crush, chew, or split. 0832 (Given - Provider: Lennie Aguilar RN) 0521 (Given - Provider: Ashley Gutierrez RN) 0528 (Given - Provider: Fiordaliza Del Castillo, ELEAZAR) potassium chloride CR (Klor-Con M10) ER tablet 10 mEq 10 mEq, Oral, 2 times daily, First dose on 06/13/22 at 2099, Best given with food and plenty of [...] or chew. 0921 (Given - Provider: Nicole Boles, ELEAZAR) rivastigmine (Exelon) capsule 3 mg 3 mg, Oral, 2 times daily, First dose on 06/13/22 at 2099 0833 (Given - Provider: Lennie Aguilar RN)2120 [...] Castillo RN) 0915 (Given - Provider: Nicole Boles RN)2100 [...] or prosecute any alcohol or drug abuse patient.[facility] FOR RECORDS PERTAINING TO PATIENTS WHO [...] BE BASED ON THE PRIMARY CLINICAL RECORDS. [facility] GENERAL MEDICAL MERATE [facility]. provides no warranty or guarantee of the accuracy or completeness of information in this document.
[2024-12-14 08:57] LABS: Hematocrit 28.3 % (37-47); Hemoglobin 9.1 g/dL (12.0-15.0); Immature Granulocytes Count 0.010 X10^3/uL (0.0-0.0); Mean Corp Hgb Conc 32.2 g/dL (32-36); Mean Corpuscular Volume 86.8 fL (81-99); Mean Platelet Vol. 12.0 fl (6.2-12.0); NRBC Flagged by Analyzer 0 % (0-5); Platelet Count 162 K/mm3 (150-450); RBC Distribution Width CV 13.2 % (11.6-14.6); RBC Distribution Width SD 42.1 fl (35.1-43.9); Red Blood Count 3.26 M/mm3 (4.2-5.4); White Blood Count 4.1 K/mm3 (4.4-11.0)
[2024-12-14 09:22] LABS: AST(SGOT) 58 U/L (<=31); Alanine Aminotransfer ALT/SGPT 38 U/L (<=34); Albumin, Serum 3.2 g/dL (3.4-4.8); Alkaline Phosphatase 312 U/L (35-104); Anion Gap 8 (5-15); BUN 26 mg/dL (4-19); BUN/Creat Ratio 28.2 RATIO (10-20); Calcium,Total 9.2 mg/dL (7.6-11.0); Carbon Dioxide 29.1 mmol/L (21.0-32.0); Chloride 101 mmol/L (98-108); Cholesterol 157 mg/dL (<=200); Globulin 4.1 g/dL (2.2-4.2); Glucose 107 mg/dL (70-99); Low Density Lipoprotein Calc. 89 mg/dL; Potassium 4.3 mmol/L (3.3-5.1); Triglycerides 53 mg/dL; Very Low Density Lipoprotein 11 mg/dL (5-40); cholesterol:hdl ratio screen 2.78
== END ==
LOC: OLS.WHLCAR 05:00
PROVIDERS: PCP Family Medicine; Visit Provider Internal Medicine
DX: E11.9 Type 2 diabetes mellitus without complications (principal); G30.9 Alzheimer's disease, unspecified; F02.811 Dementia in other diseases classified elsewhere, unspecified severity, with agitation; I48.0 Paroxysmal atrial fibrillation; E78.5 Hyperlipidemia, unspecified
CPT/HCPCS: 36415; 80053; 80061; 83036; 85025

== ENCOUNTER 2025-01-13 21:31 | Emergency (ER) | payer MEDICARE, OTHER, MEDICAID, SELFPAY ==
[2025-01-13 21:32] VITALS: BP 149/60; PULSE 77; RESP 18; TEMP 36.5; O2SAT 97; BMI 21.3
--- NOTE | 2025-01-13 21:47 | RAD_ITS ---
PROCEDURE: KNEE 3 VIEWS 01/13/2025 REASON FOR EXAM: FALL TECHNIQUE: Procedure Code: RADPAT Modality: DX Procedure: KNEE 3 VIEWS Laterality: FINDINGS: No evidence of acute fracture or dislocation. Mild degenerative changes of the knee. No knee joint effusion. RAD/Knee 3 Views IMPRESSION: No acute osseous abnormalities. Reading Location: [id number]
--- NOTE | 2025-01-13 21:47 | CT_ITS ---
PROCEDURE: BRAIN/HEAD WITHOUT CONTRAST 01/13/2025 REASON FOR EXAM: FALL TECHNIQUE: Procedure Code: CTBR Modality: CT Procedure: BRAIN/HEAD WITHOUT CONTRAST Coronal and Sagittal reconstruction series were provided. One or more dose reduction techniques were used (e.g., Automated exposure control, adjustment of the mA and/or kV according to patient size, use of iterative reconstruction technique. RADIATION DOSE SUMMARY: CTDlvol: 44 mGy DLP: 779 mGycm COMPARISON: 06/01/2022. FINDINGS: Severe global parenchymal atrophy. Periventricular white matter hypodensity likely representing chronic microvascular ischemia. Right parietal encephalomalacia. No evidence of acute hemorrhage or infarction. No extra-axial blood or fluid collections. Paranasal sinuses are clear. The mastoid air cells are well aerated. CT/Brain/Head without Contrast IMPRESSION: No acute intracranial abnormality. Reading Location: [id number]
--- NOTE | 2025-01-13 21:47 | RAD_ITS ---
PROCEDURE: PELVIS 1 OR 2 VIEWS 01/13/2025 REASON FOR EXAM: FALL TECHNIQUE: Procedure Code: RADPEL Modality: DX Procedure: PELVIS 1 OR 2 VIEWS FINDINGS: No evidence of acute fracture or dislocation. [id number] degenerative changes of the bilateral hips. Degenerative changes of the partially visualized spine. RAD/Pelvis 1 or 2 Views IMPRESSION: No acute osseous abnormalities. Reading Location: [id number]
--- OUTSIDE RECORDS SUMMARY | 2025-01-13 22:25 | XMS RPT_ITS | CCD ---
Author Organization [facility] Care Team Providers Care Director Supplier Quality Name Role Phone Alisson Morton Primary Care Provider Dr. Alisson Morton Primary Care Provider Dr. Zonia Benitez Emergency Provider Dr. Jovi Pack Admit Provider Dr. Jovi Pack Attending Provider Dr. Jovi Pack Other Provider Friend, Dr. Nevarez Attending Provider Dr. Deonte Guardado Attending Provider Dr. Jovi Pack Referring Provider Alisson Morton DO Unavailable [phone] [facility] Primary Care Provider Luisav ailadonis [facility] Primary Care Provider Unav ailable Alisson Morton DO Primary Care Provider Alisson Morton DO Unavailable Alisson Morton DO Primary Care Provider Dr. Alisson Morton Primary Care Provider Hakan CLASSIFICATION CONTROL CLERK, CLASSIFICATION CONTROL CLERK-Mira Lehman Attending Provider Luisav Dr. Anabel Freeman Attending Provider Dr. Alisson Morton Primary Care Provider Dr. Alisson Morton Referring Provider Friend, Dr. Nevarez Attending Provider Friend, Dr. Nevarez Other Provider Unavailable Primary Care Provider Unavailabl e Esterle DO, Alisson M Unavailable No, Pcp Primary Care Provider Unavailabl e Esterle DO, Alisson M Unavailable Praveen BORJA, Dr. Alisson Lima Primary Care Provider Anabel Duvall MD Attending Provider Unavailtyrone Duvall MD, Dr. Little Attending Provider Hakan CLASSIFICATION CONTROL CLERK-CFallon Attending Provider Praveen BORJA, Dr. Alisson Lima Primary Care Provider Dr. Anabel Duvall MD Attending Provider [phone] Anabel Duvall MD Attending Provider Unavaila melany Morton DO, Dr. Alisson Lima Referring Provider Sherwin CLASSIFICATION CONTROL CLERK-CBrittany Attending Provider ESTERLE, ALISSON Attending Unavailable ESTERLE, ALISSON Referring Unavailable ESTERLE, ALISSON Primary Care Unavailable ESTERLE, ALISSON Attending Unavailable ESTERLE, ALISSON Referring Unavailable ESTERLE, ALISSON Primary Care Unavailable REDLE, TONI Attending Unavailable ESTERLE, ALISSON Primary Care Unavailable Roof CLASSIFICATION CONTROL CLERK-C, Osmar Wheeler Attending Provider Kelly CLASSIFICATION CONTROL CLERK-C, Osmar Wheeler Attending Provider Hakan CLASSIFICATION CONTROL CLERK-C, Fallon Attending Provider Praveen BORJA, Dr. Alisson Lima Primary Care Provider Dr. Anabel Duvall MD Attending Provider Anabel Duvall MD Referring Provider Unavaila melany Mcclendon CLASSIFICATION CONTROL CLERK-CFallon Attending Provider Dr. Roque Herrera DO Attending Provider Dr. Roque Herrera DO Other Provider Hakan CLASSIFICATION CONTROL CLERKFallon Attending Unavailable Esterle, Alisson M Primary Care Unavailable Esterle, Alisson M Primary Care Unavailable Oleghe, Efewongbe Attending Unavailable Esterle, Alisson M Primary Care Unavailable Oleghe, Efewongbe Attending Unavailable Esterle, Alisson M Primary Care Unavailable Oleghe, Efewongbe Attending Unavailable Esterle, Alisson M Primary Care Unavailable López Rodriguez Attending Unavailable Oleghe, Efewongbe Attending Unavailable Esterle, Alisson M Primary Care Unavailable Oleghe OLS, Efewongbe Attending Unavailabl e Esterle, Alisson M Primary Care Unavailable Esterle, Alisson M Primary Care Unavailable Oleghe OLS, Efewongbe Attending Unavailabl e Esterle, Alisson M Primary Care Unavailable Oleghe OLS, Efewongbe Referring Unavailabl e Oleghe OLS, Efewongbe Attending Unavailabl e Oleghe OLS, Efewongbe Attending Unavailabl e Esterle, Alisson M Primary Care Unavailable Esterle, Alisson M Primary Care Unavailable Oleghe OLS, Efewongbe Attending Unavailabl e Oleghe OLS, Efewongbe Attending Unavailabl e Esterle, Alisson M Primary Care Unavailable Esterle, Alisson M Primary Care Unavailable Esterle, Alisson M Referring Unavailable Friend, Roque Attending Unavailable Oleghe OLS, Efewongbe Attending Unavailabl e Esterle, Alisson M Primary Care Unavailable Oleghe, Efewongbe Attending Unavailable Esterle, Alisson M Primary Care Unavailable Esterle, Alisson M Referring Unavailable Brittany Courtney Attending Unavailable Esterle, Alisson M Primary Care Unavailable Esterle, Alisson M Primary Care Unavailable Oleghe, Efewongbe Attending Unavailable Esterle, Alisson M Primary Care Unavailable Hakan CLASSIFICATION CONTROL CLERKFallon Attending Unavailable Esterle, Alisson M Primary Care Unavailable Rebekahton CLASSIFICATION CONTROL CLERKFallon Attending Unavailable Esterle, Alisson M Referring Unavailable Esterle, Laisson M Primary Care Unavailable Friend, Roque Attending Unavailable Friend, Roque Consulting Unavailable Allergies Allergy Classification Reported Allergen(s) Allergy Type Date of Onset Reaction(s) Facility Ticagrelor (2 sources) Ticagrelor Drug Allergy 9 Shortness Of Breath [facility] Work Phone: (20 sources) Ticagrelor Drug Allergy 9 Shortness Of Breath [facility] Work Phone: (20 sources) Ticagrelor Propensity to adverse reactions 9 Shortness of breath [place] (1 source) Ticagrelor Drug Allergy 5 [facility] Medications Current Medications Medication Drug [...] PO DAILY October 18, 2018 9:36am nystatin 450599 unt/ml oral suspension (3 sources) Polyene Antifungal Start: 05-13-2022 Nystatin Active 632668 UNIT PO EVERY 6 HOURS 56 7 [...] crush, chew, or split. polyethylene glycol 3350 20617 mg powder for oral solution (6 sources) [...] Start: 12-29-2021 take 1 capsule by mo [facility] twice daily Rivastigmine Tartrate 3 [...] 1 tablet by mouth once daily therapeutic multivitamin-continuous mining machine lode miner als (Theragran-M) tablet Take 1 tablet [...] dose on Micheline 09/15/18 at 2100 B Kzqmbda-Z-Pbky TABS (1 source) End: 09-15-2018 take 1 tablet by mouth once daily B Xluzhct-S-Nlgs TABS Take 1 tablet by mouth daily [...] hydrochloride 10 mg oral tablet (20 sources) N-rklrgp-Y-aspartate Receptor Antagonist Start: 05-12-2022 End: 07-23-2023 take [...] heart disease (20 sources) Coronary arteriosclerosis in hopi artery; Translations: [Coronary atherosclerosis] Onset: 9 09-18-2018 [...] (15 sources) Mild dehydration; Translations: [Dehydration] Onset: 03-28-2024 06-01-2022 Episodic Other aftercare (20 sources) Patient encounter status; Translations: [FCI (current) use of antithrombotics/antip latelets] Onset: 02-12-2019 02-12-2019 Episodic Other aftercare (7 sources) Long-term current use of drug therapy; Translations: [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/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 latelets] Onset: 02-12-2019 11-23-2021 Episodic Other lower respiratory disease (13 sources) Dyspnea; Translations: [Shortness of breath] Onset: 08-07-2018 Resolved: 08-08-2018 08-08-2018 Episodic Other screening for suspected conditions (not mental disorders or infectious disease) (9 sources) Liver function tests abnormal; Translations: [Abnormal results of liver function studies] Onset: 11-11-2023 Episodic Residual codes; unclassified (1 source) Altered mental status, unspecified; Translations: [Altered mental status, unspecified] Onset: 03-28-2024 Episodic Unclassified (13 sources) h/o throat surgery 09-08-2021 Comment on above: enlarged esophagous Results Test Name Value Interpretation Reference Range Facility EGD Reporton 10-05-2024 EGD Report [facility] Medical Records Department [address] [place] [address] EGD Report MR#: [id number] Acct: [id number] Name: RICARDO VILLALPADNO Rep #: [id number] : 1940 83 From: Roque Herrera DO PCP: Alisson Morton DO Status:REG [facility] Patient Name: Ricardo Villalpando Procedure Date: 10/05/2024 [...] pathology results. Procedure Code(s): --- Professional --- 48665, Esophagogastroduodenoscop y, flexible, transoral; with insertion of guide wire followed by passage of dilator(s) through esophagus over guide wire 20733, 59,51, Esophagogastroduodenoscop y, flexible, transoral; with biopsy, single or multiple CPT copyright 2021 [employer]. All rights reserved. The codes documented in this report are preliminary and upon sales representative wire rope review may be revised to meet current compliance requirements. Roque Herrera DO 10/05/2024 9:18:15 AM This report has been signed electronically. Number of Addenda: 0 Note Initiated On: 10/05/2024 8:39 AM 10/05/24917 Date Roque Herrera DO Cosigner Signature: Date (if indicated) CC: Alisson Morton DO; Roque Herrera DO Date Dictated: 10/05/24838 Date Transcribed: Road Supervisor Of Engines: REBECA Signed [facility] MR/OP.Nhan 10-05-2024 MR/OP.[facility] Medical Records Department [address] [place] [address] Provation Physician Letter MR#: [id number] Acct: [id number] Name: RICARDO VILLALPANDO Rep #: [id number] : 1940 83 From: Roque Herrera DO PCP: Alisson Morton DO Status:REG [facility] 10/05/2024 Alisson Morton Re : Upper GI [...] AM This report has been signed electronically. 08/28/25 0918 Date Roque Coelho Signature: Date (if indicated) CC: Alisson Morton DO; Roque Herrera DO Date Dictated: 10/05/24838 Date Transcribed: Road Supervisor Of Engines: REBECA Signed [facility] MR/POSTOP.Judy 10-05-2024 MR/POSTOP.[facility] Medical Records Department [address] [place], [place] [address] [address] Anesthesia Postop Eval I 10/05/24920 MR#: [id number] Acct: [id number] Name: KWASIRICARDO YOANA Rep #: [id number] : 1940 83 From: Artem Oh PCP: Alisson Morton DO Status:REG [facility] Y Race: C Location: [place] [address] Anesthesia: Postop Eval I Current Vital Signs [...] Date Artem Driscoll Signature: Date CC: Signed [facility] Special Stain Group Ion 09-09 Special Stain Group I ------- Patient Age/Sex Location Account Attending Physician RICARDO VILLALPANDO 83/F EN [id number] Roque Herrera DO Specimen: [id number] Received: 10/05/24 Status: REBECCA Guan Num: [id number] Spec Type: EGD BIOPSY Jessica Nolasco: Roque Herrera DO HEADER OPERATION: EGD, biopsy, [...] developed and their performance characteristics determined by [facility]. They may not have been cleared or approved by the U.S. Food and Drug Administration. The FDA has determined that such clearance or approval is not necessary.??? The above immunohistochemical???mar kers and/or special stains have been reviewed by the Pathologist. GROSS DESCRIPTION A. Received in fixative is one container labeled with the patient's name and designated Random esophagus biopsy. The specimen consists of multiple irregular fragments of light conway soft tissue that in aggregate measure 1 x 0.6 x 0.2 cm. The specimen is totally submitted in one cassette. [place] 10/05/2024 [facility]:[id number] ,[id number] Patient Age/Sex Location Account Attending Physician RICARDO VILLALPANDO 83/F EN [id number] Roque Herrera, DO Signed (signature on file) Dr. Ximena Sheikh MD 10/23/24 1614 Normal [facility] Comment on above: Performed By: #### P SSI #### [facility] [address] [place], [place], [id number] Absolute lymphocyte countOrd ered By: Chinorichlandsjono Duvall on 09-14-2024 Lymphocytes Auto (Unsp spec) [#/Vol] 1.15 10*3/uL 0.83-4.51 [facility] Absolute neutrophil countOrd ered By: kunrichlandsjono Duvall on 09-14-2024 Neutrophils (Bld) [#/Vol] 3.2 10*3/uL 2.0-7.7 [facility] Anion gap in Serum or Plasma Ordered By: Chinorichlandsjono Duvall on 09-14-2024 Anion gap [Moles/Vol] 11 mmol/L 5-15 [facility] Automated lymphocyte count a s percentage of total leukocytesOrdered By: Chinorichlandsjono Duvall on 09-14-2024 Lymphocytes/100 WBC Auto (Unsp spec) 22.9 % 19-41 [facility] BUN/creatinine ratioOrdered By: [facility] Berrienjono Duvall on 09-14-2024 Urea nitrogen/Creatinine [Mass ratio] 23.3 mg/mg High 10-20 [facility] Basophil percentageOrdered B y: Anabel Duvall on 09-14-2024 Basophils/100 WBC (Bld) 1.2 % High 0-1 [facility] Bilirubin, totalOrdered By: Chinorichlandsjono Duvall on 09-14-2024 Bilirubin [Mass/Vol] 0.33 mg/dL 0.00-1.30 [facility] Carbon dioxide, total [Moles /volume] in Central venous bloodOrdered By: Anabel Duvall on 09-14-2024 CO2 [Moles/Vol] 26.7 mmol/L 21.0-32.0 [facility] Chloride assayOrdered By: Luna Duvall on 09-14-2024 Chloride [Moles/Vol] 103 mmol/L 98-108 [facility] Eosinophil percentageOrdered By: Anabel Duvall on 09-14-2024 Eosinophils/100 WBC (Bld) 3.6 % 0-5 [facility] Erythrocyte distribution wid th ratioOrdered By: kunrichlandsjono Duvall on 09-14-2024 Erythrocyte distribution width (RBC) [Ratio] 13.1 % 11.6-14.6 [facility] Erythrocyte distribution wid th standard deviationOrdered By: kunrichlandsjono Duvall on 09-14-2024 Erythrocyte distribution width (RBC) [Ratio] 42.5 fl 35.1-43.9 [facility] Glomerular filtration rate ( GFR) estimation/1.73 sq m using serum, plasma, or whole bOrdered By: Anabel Duvall on 09-14-2024 GFR/1.73 sq M.predicted among non-blacks MDRD (S/P/Bld) [Vol rate/Area] 68 mL/min/{1.73_m2} >60 [facility] Comment on above: mL/min/1.73m2 CKD-EP I Creatinine Equation (2020) Hematocrit Auto (Bld) [Volum e fraction]Ordered By: Anabel Duvall on 09-14-2024 Hematocrit (Bld) [Volume fraction] 30.0 % Low 37-47 [facility] Hemoglobin A1c percentageOrd ered By: Anabel Duvall on 09-14-2024 HbA1c (Bld) [Mass fraction] 6.1 % High <5.7 [facility] Comment on above: Normal < 5.7 % Predi abetic 5.7 - 6.4 % Diabetic >or= 6.5 % Please note range changes. Hemoglobin measurementOrdere d By: Anabel Duvall on 09-14-2024 Hemoglobin (Bld) [Mass/Vol] 9.7 g/dL Low 12.0-15.0 [facility] Immature granulocytes/100 WB C Auto (Bld)Ordered By: Anabel Duvall on 09-14-2024 Immature granulocytes/100 WBC (Bld) 0.400 % 0.0-0.9 [facility] Comment on above: IG% - Immature Granu locytes (promyelocytes, myelocytes and metamyelocytes) > 1% indicates that a LEFT SHIFT is Present. Laboratory - Chemistry and C hemistry - challengeOrdered By: Anabel Duvall on 09-14-2024 AST [Catalytic activity/Vol] 64 U/L High <32 [facility] MCV (mean corpuscular volume ) determinationOrdered By: Anabel Duvall on 09-14-2024 MCV (RBC) [Entitic vol] 88.8 fL 81-99 [facility] Mean corpuscular hemoglobin (MCH) determinationOrdered By: kunrichlandsjono Duvall on 09-14-2024 MCH (RBC) [Entitic mass] 28.7 pg 27.0-32.0 [facility] Mean corpuscular hemoglobin concentration (MCHC) determinationOrdered By: kunrichlandsjono Duvall on 09-14-2024 MCHC (RBC) [Mass/Vol] 32.3 g/dL 32-36 [facility] Mean platelet volume determi nationOrdered By: Anabel Duvall on 09-14-2024 Platelet mean volume (Bld) [Entitic vol] 12.3 fL High 6.2-12.0 [facility] Monocyte percentageOrdered B y: Anabel Duvall on 09-14-2024 Monocytes/100 WBC (Bld) 8.7 % 0-10 [facility] Neutrophil percentageOrdered By: nav Duvall on 09-14-2024 Neutrophils/100 WBC (Bld) 63.2 % 47-70 [facility] Nucleated red blood cell per centageOrdered By: Anabel Duvall on 09-14-2024 Nucleated RBC/100 WBC (Bld) [Ratio] 0 % 0-5 [facility] Platelet countOrdered By: Luna Duvall on 09-14-2024 Platelets (Bld) [#/Vol] 197 10*3/uL 150-450 [facility] Potassium measurement (mass/ volume)Ordered By: Anabel Duvall on 09-14-2024 Potassium (Unsp spec) [Mass/Vol] 3.9 mmol/L 3.3-5.1 [facility] RBC Auto (Bld) [#/Vol]Ordere d By: Anabel Duvall on 09-14-2024 RBC (Bld) [#/Vol] 3.38 10*6/uL Low 4.2-5.4 [facility] Serum creatinine measurement (mass/volume)Ordered By: Anabel Duvall on 09-14-2024 Creatinine [Mass/Vol] 0.86 mg/dL 0.70-1.20 [facility] Serum globulin measurementOr dered By: Anabel Duvall on 09-14-2024 Globulin (S) [Mass/Vol] 3.9 g/dL 2.2-4.2 [facility] Serum glucose measurement (m ass/volume)Ordered By: Anabel Duvall on 09-14-2024 Glucose [Mass/Vol] 109 mg/dL High 70-99 [facility] Serum or plasma alanine gtz otransferase (ALT) measurementOrdered By: Anabel Duvall on 09-14-2024 ALT [Catalytic activity/Vol] 31 U/L <35 [facility] Serum or plasma albumin blanco urement (mass/volume)Ordered By: Anabel Duvall on 09-14-2024 Albumin [Mass/Vol] 3.4 g/dL 3.4-4.8 [facility] Serum or plasma albumin/glob ulin mass ratioOrdered By: Anabel Duvall on 09-14-2024 Albumin/Globulin [Mass ratio] 0.9 {ratio} 0.9-2.4 [facility] Serum or plasma alkaline javier sphatase measurementOrdered By: Anabel Duvall on 09-14-2024 ALP [Catalytic activity/Vol] 391 U/L High 35-104 [facility] Serum or plasma calcium blanco urement (mass/volume)Ordered By: Anabel Duvall on 09-14-2024 Calcium [Mass/Vol] 8.9 mg/dL 7.6-11.0 [facility] Serum or plasma urea nitroge n measurement (mass/volume)Ordered By: Anabel Duvall on 09-14-2024 Urea nitrogen [Mass/Vol] 20 mg/dL High 4-19 [facility] Sodium levelOrdered By: Chino Duvall on 09-14-2024 Sodium [Moles/Vol] 140 mmol/L 133-145 [facility] Total proteinOrdered By: Shan Duvall on 09-14-2024 Protein [Mass/Vol] 7.3 g/dL 5.9-8.4 [facility] White blood cell (WBC) count Ordered By: Anabel Duvall on 09-14-2024 WBC (Bld) [#/Vol] 5.0 10*3/uL 4.4-11.0 [facility] Absolute lymphocyte countOrd ered By: Anabel Duvall on 08-18-2024 Lymphocytes Auto (Unsp spec) [#/Vol] 1.85 10*3/uL 0.83-4.51 [facility] Absolute neutrophil countOrd ered By: Anabel Duvall on 08-18-2024 Neutrophils (Bld) [#/Vol] 4.1 10*3/uL 2.0-7.7 [facility] Automated lymphocyte count a s percentage of total leukocytesOrdered By: Anabel Duvall on 08-18-2024 Lymphocytes/100 WBC Auto (Unsp spec) 26.5 % 19-41 [facility] Basophil percentageOrdered B y: Anabel Duvlal on 08-18-2024 Basophils/100 WBC (Bld) 1.0 % 0-1 [facility] ECG 12 lead - CLINIC PERFORM EDon 08-18-2024 [place] Undetermined Rhythm , probable sinus Low voltage in limb leads. -Old inferior infarct -Decreasing R-wave progression -may be secondary to pulmonary disease consider old anterior infarct. -Nonspecific T-abnormality. ABNORMAL [facility] Eosinophil percentageOrdered By: Anabel Duvall on 08-18-2024 Eosinophils/100 WBC (Bld) 4.2 % 0-5 [facility] Erythrocyte distribution wid th ratioOrdered By: Anabel Duvall on 08-18-2024 Erythrocyte distribution width (RBC) [Ratio] 13.4 % 11.6-14.6 [facility] Erythrocyte distribution wid th standard deviationOrdered By: Anabel Duvall on 08-18-2024 Erythrocyte distribution width (RBC) [Ratio] 43.8 fl 35.1-43.9 [facility] Gastroenterology Visit Repor ton 08-18-2024 Gastroenterology Visit Report [facility] [address] [place] [address] OFFICE VISIT Date of Service: 08/18/24 MR#: [id number] Acct: [id number] Name: RICARDO VILLALPANDO Rep #: [id number] : 1940 Provider: DREW landry Age/Sex: 83/F Location: [facility] Status: Signed Intake Vital Signs 11/22/23 [...] Paroxysmal atrial fibrillation Atherosclerotic heart disease of hopi coronary artery without angina pectoris Persistent atrial [...] 08.18.24 OV She presents with staff from [facility]. 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 Normal [facility] Hematocrit Auto (Bld) [Volum e fraction]Ordered By: Anabel Duvall on 08-18-2024 Hematocrit (Bld) [Volume fraction] 33.3 % Low 37-47 [facility] Hemoglobin measurementOrdere d By: Anabel Duvall on 08-18-2024 Hemoglobin (Bld) [Mass/Vol] 10.7 g/dL Low 12.0-15.0 [facility] Immature granulocytes/100 WB C Auto (Bld)Ordered By: Anabel Duvall on 08-18-2024 Immature granulocytes/100 WBC (Bld) 0.300 % 0.0-0.9 [facility] Comment on above: IG% - Immature Granu locytes (promyelocytes, myelocytes and metamyelocytes) > 1% indicates that a LEFT SHIFT is Present. MCV (mean corpuscular volume ) determinationOrdered By: Anabel Duvall on 08-18-2024 MCV (RBC) [Entitic vol] 89.3 fL 81-99 [facility] Mean corpuscular hemoglobin (MCH) determinationOrdered By: Anabel Duvall on 08-18-2024 MCH (RBC) [Entitic mass] 28.7 pg 27.0-32.0 [facility] Mean corpuscular hemoglobin concentration (MCHC) determinationOrdered By: Anabel Duvall on 08-18-2024 MCHC (RBC) [Mass/Vol] 32.1 g/dL 32-36 [facility] Mean platelet volume determi nationOrdered By: Anabel Duvall on 08-18-2024 Platelet mean volume (Bld) [Entitic vol] 12.2 fL High 6.2-12.0 [facility] Monocyte percentageOrdered B y: Anabel Duvall on 08-18-2024 Monocytes/100 WBC (Bld) 8.6 % 0-10 [facility] Neutrophil percentageOrdered By: Anabel Duvall on 08-18-2024 Neutrophils/100 WBC (Bld) 59.4 % 47-70 [facility] Nucleated red blood cell per centageOrdered By: Anabel Duvall on 08-18-2024 Nucleated RBC/100 WBC (Bld) [Ratio] 0 % 0-5 [facility] Office Visiton 08-18-2024 Follow-up visit [id number] Jayna Villalpando 1940 F Date Provider Department Center 08/18/2024 [id number] BEY [facility] Kira Family History Problem Relation Age of Onset High Blood Pressure Mother Heart disease Brother Cancer Brother Coronary artery disease Brother High Blood Pressure Brother Diabetes Brother Family Status - Relation Status Age at Mother Father Brother Level of Service:05485 [place] OFFICE/OUTPATIENT ESTABLISHED MOD MDM 30 MIN Reason for Visit and Comments: 1 Year Follow-up [670] Coronary Artery Disease [187] Normal [facility] Platelet countOrdered By: Luna Duvall on 08-18-2024 Platelets (Bld) [#/Vol] 202 10*3/uL 150-450 [facility] Progress Noteon 08-18-2024 Progress Note [place] [facility] Cardiology [facility] [place] [address] [address] [facility] [facility] [address] Dept: [phone] Dept Visit type: Established : 1940 Chief Complaint: Chief Complaint Patient presents with 1 Year Follow-up Coronary Artery Disease History of Present Illness: Ricardo Villalpando is a 83 y.o. female who is here in follow-up with her daughter. She has advanced dementia. She now lives in a retirement. There have not been complaints of chest [...] BUN 18 (H) 09/24/2022 CREATININE 0.85 09/24/2022 @[facility]@ Lab Results Component Value Date CHOL 143 [...] and Plan: 1. Coronary artery disease involving hopi coronary artery of hopi heart without angina pectoris 2. Persistent atrial fibrillation (HCC) 3. Mixed hyperlipidemia 1. Coronary artery disease: She has a history of remote stenting. She is doing well with no symptoms of angina per the retirement. Continued medical therapy is recommended. 2. History [...] [#/Vol] 3.73 10*6/uL Low 4.2-5.4 [facility] White blood cell (WBC) count Ordered By: Anabel Duvall on 08-18-2024 WBC (Bld) [#/Vol] 7.0 10*3/uL 4.4-11.0 [facility] Bilirubin Test strip Ql (U)O rdered By: Anabel Duvall on 08-17-2024 Bilirubin Ql (U) Negative Negative [facility] Ketones Test strip Ql (U)Ord ered By: Anabel Duvall on 08-17-2024 Ketones Ql (U) Negative Negative [facility] Microscopic analysis of urin e for red blood cells (RBC)Ordered By: Anabel Duvall on 08-17-2024 Microscopic analysis of urine for red blood cells (RBC) 0 SEEN /hpf 0-5 [facility] Mucus LM Ql (Urine sed)Order ed By: Anabel Duvall on 08-17-2024 Mucus Ql (Urine sed) 0 SEEN /hpf [facility] Nitrite Test strip Ql (U)Ord ered By: Anabel Duvall on 08-17-2024 Nitrite Ql (U) Negative Negative [facility] Protein Test strip Ql (U)Ord ered By: Anabel Duvall on 08-17-2024 Protein Ql (U) 15 mg/dl High Negative [facility] Squamous epithelial cells de tection in urine sediment by light microscopyOrdered By: Anabel Duvall on 08-17-2024 Epithelial cells.squamous LM Ql (Urine sed) 0-5 SEEN /hpf 5-10 [facility] Urine clarityOrdered By: Shan Duvall on 08-17-2024 Clarity (U) Sl. Cloudy Clear [facility] Urine color determinationOrd ered By: Anabel Duvall on 08-17-2024 Color (U) Yellow Yellow [facility] Urine cultureOrdered By: Shan Duvall on 08-17-2024 Bacteria identified Cx Nom (U) Escherichia coli Abnormal [facility] Urine glucose detectionOrder ed By: Anabel Duvall on 08-17-2024 Glucose Ql (U) Normal mg/dl Normal [facility] Urine leukocyte esterase det ection by dipstickOrdered By: Anabel Duvall on 08-17-2024 Leukocyte esterase Test strip Ql (U) 500 /ul High Negative [facility] Urine pHOrdered By: Yoseph Duvall on 08-17-2024 pH (U) 6.0 [pH] 5.0 - 8.0 [facility] Urine sediment bacteria coun t by microscopy (number/high power field)Ordered By: Anabel Duvall on 08-17-2024 Bacteria LM.HPF (Urine sed) [#/Area] 2 /[HPF] None Seen [facility] Urine specific gravity measu rementOrdered By: Anabel Duvall on 08-17-2024 Specific gravity (U) [Rel density] 1.015 1.002-1.030 [facility] Urine urobilinogen measureme ntOrdered By: Anabel Duvall on 08-17-2024 Urobilinogen Ql (U) Normal mg/dl Normal [facility] White blood cell countOrdere d By: Anabel Duvall on 08-17-2024 White blood cell count 25-50 SEEN /hpf 0-5 [facility] Absolute lymphocyte countOrd ered By: Anabel Duvall on 08-09-2024 Lymphocytes Auto (Unsp spec) [#/Vol] 1.22 10*3/uL 0.83-4.51 [facility] Absolute neutrophil countOrd ered By: Anabel Duvall on 08-09-2024 Neutrophils (Bld) [#/Vol] 2.7 10*3/uL 2.0-7.7 [facility] Automated lymphocyte count a s percentage of total leukocytesOrdered By: Anabel Duvall on 08-09-2024 Lymphocytes/100 WBC Auto (Unsp spec) 27.1 % 19-41 [facility] Basophil percentageOrdered B y: Anabel Duvall on 08-09-2024 Basophils/100 WBC (Bld) 0.9 % 0-1 [facility] Eosinophil percentageOrdered By: [facility] Berrienjono Duvall on 08-09-2024 Eosinophils/100 WBC (Bld) 3.8 % 0-5 [facility] Erythrocyte distribution wid th ratioOrdered By: [facility] Berrienjono Duvall on 08-09-2024 Erythrocyte distribution width (RBC) [Ratio] 13.3 % 11.6-14.6 [facility] Erythrocyte distribution wid th standard deviationOrdered By: kunrichlandsjono Duvall on 08-09-2024 Erythrocyte distribution width (RBC) [Ratio] 43.3 fl 35.1-43.9 [facility] Hematocrit Auto (Bld) [Volum e fraction]Ordered By: nav Duvall on 08-09-2024 Hematocrit (Bld) [Volume fraction] 30.2 % Low 37-47 [facility] Hemoglobin measurementOrdere d By: kunrichlandsjono Duvall on 08-09-2024 Hemoglobin (Bld) [Mass/Vol] 9.9 g/dL Low 12.0-15.0 [facility] Immature granulocytes/100 WB C Auto (Bld)Ordered By: nav Duvall on 08-09-2024 Immature granulocytes/100 WBC (Bld) 0.200 % 0.0-0.9 [facility] Comment on above: IG% - Immature Granu locytes (promyelocytes, myelocytes and metamyelocytes) > 1% indicates that a LEFT SHIFT is Present. MCV (mean corpuscular volume ) determinationOrdered By: kunrichlandsjono Duvall on 08-09-2024 MCV (RBC) [Entitic vol] 88.6 fL 81-99 [facility] Mean corpuscular hemoglobin (MCH) determinationOrdered By: Anabel Duvall on 08-09-2024 MCH (RBC) [Entitic mass] 29.0 pg 27.0-32.0 [facility] Mean corpuscular hemoglobin concentration (MCHC) determinationOrdered By: Anabel Duvall on 08-09-2024 MCHC (RBC) [Mass/Vol] 32.8 g/dL 32-36 [facility] Mean platelet volume determi nationOrdered By: Anabel Duvall on 08-09-2024 Platelet mean volume (Bld) [Entitic vol] 12.1 fL High 6.2-12.0 [facility] Monocyte percentageOrdered B y: Anabel Duvall on 08-09-2024 Monocytes/100 WBC (Bld) 9.1 % 0-10 [facility] Neutrophil percentageOrdered By: Anabel Duvall on 08-09-2024 Neutrophils/100 WBC (Bld) 58.9 % 47-70 [facility] Nucleated red blood cell per centageOrdered By: Anabel Duvall on 08-09-2024 Nucleated RBC/100 WBC (Bld) [Ratio] 0 % 0-5 [facility] Platelet countOrdered By: Luna Duvall on 08-09-2024 Platelets (Bld) [#/Vol] 164 10*3/uL 150-450 [facility] RBC Auto (Bld) [#/Vol]Ordere d By: Aanbel Duvall on 08-09-2024 RBC (Bld) [#/Vol] 3.41 10*6/uL Low 4.2-5.4 [facility] White blood cell (WBC) count Ordered By: Anabel Duvall on 08-09-2024 WBC (Bld) [#/Vol] 4.5 10*3/uL 4.4-11.0 [facility] Absolute lymphocyte countOrd ered By: Anabel Duvall on 06-12-2024 Lymphocytes Auto (Unsp spec) [#/Vol] 1.40 10*3/uL 0.83-4.51 [facility] Absolute neutrophil countOrd ered By: Anabel Duvall on 06-12-2024 Neutrophils (Bld) [#/Vol] 2.6 10*3/uL 2.0-7.7 [facility] Anion gap in Serum or Plasma Ordered By: Anabel Duvall on 06-12-2024 Anion gap [Moles/Vol] 10 mmol/L 5-15 [facility] Automated lymphocyte count a s percentage of total leukocytesOrdered By: Anabel Duvall on 06-12-2024 Lymphocytes/100 WBC Auto (Unsp spec) 30.2 % 19-41 [facility] BUN/creatinine ratioOrdered By: Anabel Duvall on 06-12-2024 Urea nitrogen/Creatinine [Mass ratio] 22.8 mg/mg High 10-20 [facility] Basophil percentageOrdered B y: Anabel Duvall on 06-12-2024 Basophils/100 WBC (Bld) 1.1 % High 0-1 [facility] Bilirubin, totalOrdered By: Anabel Duvall on 06-12-2024 Bilirubin [Mass/Vol] 0.40 mg/dL 0.00-1.30 [facility] Calculated very low density lipoprotein (VLDL) cholesterol measurementOrdered By: Anabel Duvall on 06-12-2024 Calculated very low density lipoprotein (VLDL) cholesterol measurement 15 mg/dL 5-40 [facility] Carbon dioxide, total [Moles /volume] in Central venous bloodOrdered By: Anabel Duvall on 06-12-2024 CO2 [Moles/Vol] 25.5 mmol/L 21.0-32.0 [facility] Chloride assayOrdered By: Luna Duvall on 06-12-2024 Chloride [Moles/Vol] 103 mmol/L 98-108 [facility] Eosinophil percentageOrdered By: Anabel Duvall on 06-12-2024 Eosinophils/100 WBC (Bld) 5.0 % 0-5 [facility] Erythrocyte distribution wid th ratioOrdered By: Anabel Duvall on 06-12-2024 Erythrocyte distribution width (RBC) [Ratio] 13.8 % 11.6-14.6 [facility] Erythrocyte distribution wid th standard deviationOrdered By: Anabel Duvall on 06-12-2024 Erythrocyte distribution width (RBC) [Ratio] 43.5 fl 35.1-43.9 [facility] Glomerular filtration rate ( GFR) estimation/1.73 sq m using serum, plasma, or whole bOrdered By: Anabel Duvall on 06-12-2024 GFR/1.73 sq M.predicted among non-blacks MDRD (S/P/Bld) [Vol rate/Area] 62 mL/min/{1.73_m2} >60 [facility] Comment on above: mL/min/1.73m2 CKD-EP I Creatinine Equation (2020) Hematocrit Auto (Bld) [Volum e fraction]Ordered By: Anabel Duvall on 06-12-2024 Hematocrit (Bld) [Volume fraction] 30.3 % Low 37-47 [facility] Hemoglobin A1c percentageOrd ered By: Anabel Duvall on 06-12-2024 HbA1c (Bld) [Mass fraction] 6.2 % High <5.7 [facility] Comment on above: Normal < 5.7 % Predi abetic 5.7 - 6.4 % Diabetic >or= 6.5 % Please note range changes. Hemoglobin measurementOrdere d By: Anabel Duvall on 06-12-2024 Hemoglobin (Bld) [Mass/Vol] 9.9 g/dL Low 12.0-15.0 [facility] Immature granulocytes/100 WB C Auto (Bld)Ordered By: Anabel Duvall on 06-12-2024 Immature granulocytes/100 WBC (Bld) 0.200 % 0.0-0.9 [facility] Comment on above: IG% - Immature Granu locytes (promyelocytes, myelocytes and metamyelocytes) > 1% indicates that a LEFT SHIFT is Present. LDL calc ser/plasOrdered By: Anabel Duvall on 06-12-2024 Cholesterol in LDL [Mass/Vol] 85 mg/dL [facility] Comment on above: Nawezwigbz=564-133 m g/dL & Higher Zxjk=321 mg/dL or greater Laboratory - Chemistry and C hemistry - challengeOrdered By: Anabel Duvall on 06-12-2024 AST [Catalytic activity/Vol] 48 U/L High <32 [facility] MCV (mean corpuscular volume ) determinationOrdered By: Anabel Duvall on 06-12-2024 MCV (RBC) [Entitic vol] 88.1 fL 81-99 [facility] Mean corpuscular hemoglobin (MCH) determinationOrdered By: Anabel Duvall on 06-12-2024 MCH (RBC) [Entitic mass] 28.8 pg 27.0-32.0 [facility] Mean corpuscular hemoglobin concentration (MCHC) determinationOrdered By: Anabel Duvall on 06-12-2024 MCHC (RBC) [Mass/Vol] 32.7 g/dL 32-36 [facility] Mean platelet volume determi nationOrdered By: Anabel Duvall on 06-12-2024 Platelet mean volume (Bld) [Entitic vol] 12.3 fL High 6.2-12.0 [facility] Monocyte percentageOrdered B y: Anabel Duvall on 06-12-2024 Monocytes/100 WBC (Bld) 7.8 % 0-10 [facility] Neutrophil percentageOrdered By: [facility] Berrienjono Duvall on 06-12-2024 Neutrophils/100 WBC (Bld) 55.7 % 47-70 [facility] Nucleated red blood cell per centageOrdered By: Anabel Duvall on 06-12-2024 Nucleated RBC/100 WBC (Bld) [Ratio] 0 % 0-5 [facility] Platelet countOrdered By: Luna Duvall on 06-12-2024 Platelets (Bld) [#/Vol] 163 10*3/uL 150-450 [facility] Potassium measurement (mass/ volume)Ordered By: Anabel Duvall on 06-12-2024 Potassium (Unsp spec) [Mass/Vol] 3.7 mmol/L 3.3-5.1 [facility] RBC Auto (Bld) [#/Vol]Ordere d By: Anabel Duvall on 06-12-2024 RBC (Bld) [#/Vol] 3.44 10*6/uL Low 4.2-5.4 [facility] Screening total cholesterol/ high density lipoprotein (HDL) cholesterol ratioOrdered By: Anabel Duvall on 06-12-2024 Cholesterol.total/Chol esterol in HDL [Mass ratio] 2.87 {ratio} [facility] Serum creatinine measurement (mass/volume)Ordered By: Anabel Duvall on 06-12-2024 Creatinine [Mass/Vol] 0.92 mg/dL 0.70-1.20 [facility] Serum globulin measurementOr dered By: Anabel Duvall on 06-12-2024 Globulin (S) [Mass/Vol] 4.1 g/dL 2.2-4.2 [facility] Serum glucose measurement (m ass/volume)Ordered By: Anabel Duvall on 06-12-2024 Glucose [Mass/Vol] 98 mg/dL 70-99 [facility] Serum or plasma alanine gtz otransferase (ALT) measurementOrdered By: Anabel Duvall on 06-12-2024 ALT [Catalytic activity/Vol] 28 U/L <35 [facility] Serum or plasma albumin blanco urement (mass/volume)Ordered By: Anabel Duvall on 06-12-2024 Albumin [Mass/Vol] 3.2 g/dL Low 3.4-4.8 [facility] Serum or plasma albumin/glob ulin mass ratioOrdered By: Anabel Duvall on 06-12-2024 Albumin/Globulin [Mass ratio] 0.8 {ratio} Low 0.9-2.4 [facility] Serum or plasma alkaline javier sphatase measurementOrdered By: Anabel Duvall on 06-12-2024 ALP [Catalytic activity/Vol] 323 U/L High 35-104 [facility] Serum or plasma calcium blanco urement (mass/volume)Ordered By: Anabel Duvall on 06-12-2024 Calcium [Mass/Vol] 9.1 mg/dL 7.6-11.0 [facility] Serum or plasma cholesterol in HDL measurement (mass/volume)Ordered By: Anabel Duvall on 06-12-2024 Cholesterol in HDL [Mass/Vol] 53 mg/dL >40 [facility] Comment on above: National Cholesterol Education Program (NCEP) guidelines:<40 mg/dL: Low HDL-cholesterol (major risk factor for CHD)>= 60 mg/dL: High HDL-cholesterol (negative risk factor for CHD)HDL-cholesterol is affected by a number of factors, e.g. smoking, exercise, hormones, sex and age. Serum or plasma cholesterol measurement (mass/volume)Ordered By: Anabel Duvall on 06-12-2024 Cholesterol [Mass/Vol] 153 mg/dL <201 [facility] Comment on above: Cholesterol level, D esirable <200 mg/dLBorderline high cholesterol 200-239 mg/dLHigh cholesterol >=240 mg/dLRecommendations of the NCEP Adult Treatment Panel for the following risk-cutoff thresholds for the [place] population. Serum or plasma urea nitroge n measurement (mass/volume)Ordered By: Anabel Duvall on 06-12-2024 Urea nitrogen [Mass/Vol] 21 mg/dL High 4-19 [facility] Sodium levelOrdered By: Chino diasjerardojuana Duvall on 06-12-2024 Sodium [Moles/Vol] 139 mmol/L 133-145 [facility] Total proteinOrdered By: Shan Duvall on 06-12-2024 Protein [Mass/Vol] 7.4 g/dL 5.9-8.4 [facility] Triglycerides measurementOrd ered By: Anabel Duvall on 06-12-2024 Triglyceride [Mass/Vol] 75 mg/dL <199 [facility] Comment on above: The drugs N-Acetylcy steine and Metamizole may falsely depress this assay. Normal range: <150 mg/dLBorderline High: 150-199 mg/dLHigh: 200-499 mg/dLVery High: >500 mg/dL White blood cell (WBC) count Ordered By: Anabel Duvall on 06-12-2024 WBC (Bld) [#/Vol] 4.6 10*3/uL 4.4-11.0 [facility] Absolute lymphocyte countOrd ered By: Anabel Duvall on 03-16-2024 Lymphocytes Auto (Unsp spec) [#/Vol] 1.69 10*3/uL 0.83-4.51 [facility] Absolute neutrophil countOrd ered By: Anabel Duvall on 03-16-2024 Neutrophils (Bld) [#/Vol] 2.5 10*3/uL 2.0-7.7 [facility] Albumin to globulin ratioOrd ered By: Anabel Duvall on 03-16-2024 Albumin/Globulin [Mass ratio] 0.5 {ratio} Low 0.9-2.4 [facility] Automated lymphocyte count a s percentage of total leukocytesOrdered By: Anabel Duvall on 03-16-2024 Lymphocytes/100 WBC Auto (Unsp spec) 35.0 % 19-41 [facility] Basophil percentageOrdered B y: Anabel Duvall on 03-16-2024 Basophils/100 WBC (Bld) 0.8 % 0-1 [facility] Bilirubin, totalOrdered By: Anabel Duvall on 03-16-2024 Bilirubin [Mass/Vol] 0.30 mg/dL 0.20-1.00 [facility] Comment on above: For patients on eltr ombopag therapy, use of Dimension [place] TBIL is not recommended. Blood urea nitrogen (BUN)/cr eatinine ratioOrdered By: Anabel Duvall on 03-16-2024 Urea nitrogen/Creatinine [Mass ratio] 25.9 mg/mg High 10-20 [facility] Carbon dioxide measurementOr dered By: Anabel Duvall on 03-16-2024 CO2 [Moles/Vol] 29.0 mmol/L 21.0-32.0 [facility] Chloride measurementOrdered By: Anabel Duvall on 03-16-2024 Chloride [Moles/Vol] 104 mmol/L 98-107 [facility] Eosinophil percentageOrdered By: Anabel Duvall on 03-16-2024 Eosinophils/100 WBC (Bld) 3.3 % 0-5 [facility] Erythrocyte distribution wid th ratioOrdered By: Anabel Duvall on 03-16-2024 Erythrocyte distribution width (RBC) [Ratio] 13.3 % 11.6-14.6 [facility] Erythrocyte distribution wid th standard deviationOrdered By: Anabel Duvall on 03-16-2024 Erythrocyte distribution width (RBC) [Ratio] 45.3 fl High 35.1-43.9 [facility] Glomerular filtration rate ( GFR) estimationOrdered By: Anabel Duvall on 03-16-2024 GFR/1.73 sq M.predicted among non-blacks MDRD (S/P/Bld) [Vol rate/Area] 62 mL/min/{1.73_m2} >60 [facility] Comment on above: Non- GFR Calc Glucose measurementOrdered B y: Anabel Duvall on 03-16-2024 Glucose [Mass/Vol] 104 mg/dL 74-106 [facility] Comment on above: Fasting Glucose resu lt from 100 to 125 mg/dL suggests IMPAIRED HOMEOSTASIS per A.D.A. criteria. Hematocrit Auto (Bld) [Volum e fraction]Ordered By: Anabel Duvall on 03-16-2024 Hematocrit (Bld) [Volume fraction] 33.5 % Low 37-47 [facility] Hemoglobin A1c percentageOrd ered By: Anabel Duvall on 03-16-2024 HbA1c (Bld) [Mass fraction] 4.8 % 3.8-5.6 [facility] Comment on above: Normal < 5.7 % Predi abetic 5.7 - 6.4 % Diabetic >or= 6.5 % Please note range changes. Hemoglobin measurementOrdere d By: Anabel Duvall on 03-16-2024 Hemoglobin (Bld) [Mass/Vol] 10.6 g/dL Low 12.0-15.0 [facility] Immature granulocytes/100 WB C Auto (Bld)Ordered By: Anabel Duvall on 03-16-2024 Immature granulocytes/100 WBC (Bld) 0.200 % 0.0-0.9 [facility] Comment on above: IG% - Immature Granu locytes (promyelocytes, myelocytes and metamyelocytes) > 1% indicates that a LEFT SHIFT is Present. Laboratory - Chemistry and C hemistry - challengeOrdered By: Anabel Duvall on 03-16-2024 AST [Catalytic activity/Vol] 63 U/L High 15-37 [facility] MCV (mean corpuscular volume ) determinationOrdered By: Anabel Duvall on 03-16-2024 MCV (RBC) [Entitic vol] 92.0 fL 81-99 [facility] Mean corpuscular hemoglobin (MCH) determinationOrdered By: Anabel Duvall on 03-16-2024 MCH (RBC) [Entitic mass] 29.1 pg 27.0-32.0 [facility] Mean corpuscular hemoglobin concentration (MCHC) determinationOrdered By: Anabel Duvall on 03-16-2024 MCHC (RBC) [Mass/Vol] 31.6 g/dL Low 32-36 [facility] Mean platelet volume determi nationOrdered By: Anabel Duvall on 03-16-2024 Platelet mean volume (Bld) [Entitic vol] 12.6 fL High 6.2-12.0 [facility] Monocyte percentageOrdered B y: Anabel Duvall on 03-16-2024 Monocytes/100 WBC (Bld) 9.1 % 0-10 [facility] Neutrophil percentageOrdered By: Anabel Duvall on 03-16-2024 Neutrophils/100 WBC (Bld) 51.6 % 47-70 [facility] Nucleated red blood cell per centageOrdered By: Anabel Duvall on 03-16-2024 Nucleated RBC/100 WBC (Bld) [Ratio] 0 % 0-5 [facility] Platelet countOrdered By: Luna Duvall on 03-16-2024 Platelets (Bld) [#/Vol] 183 10*3/uL 150-450 [facility] Potassium measurementOrdered By: Anabel Duvall on 03-16-2024 Potassium [Moles/Vol] 4.2 mmol/L 3.5-5.1 [facility] RBC Auto (Bld) [#/Vol]Ordere d By: Anabel Duvall on 03-16-2024 RBC (Bld) [#/Vol] 3.64 10*6/uL Low 4.2-5.4 [facility] Serum anion gap measurementO rdered By: Anabel Duvall on 03-16-2024 Anion gap [Moles/Vol] 6 mmol/L 5-15 [facility] Serum globulin measurementOr dered By: Anabel Duvall on 03-16-2024 Globulin (S) [Mass/Vol] 5.3 g/dL High 2.2-4.2 [facility] Serum or plasma alanine gtz otransferase (ALT) measurementOrdered By: Anabel Duvall on 03-16-2024 ALT [Catalytic activity/Vol] 51 U/L 13-56 [facility] Serum or plasma albumin blanco urement (mass/volume)Ordered By: Anabel Duvall on 03-16-2024 Albumin [Mass/Vol] 2.9 g/dL Low 3.2-5.0 [facility] Serum or plasma alkaline javier sphatase measurementOrdered By: Anabel Duvall on 03-16-2024 ALP [Catalytic activity/Vol] 290 U/L High 45-117 [facility] Serum or plasma calcium blanco urement (mass/volume)Ordered By: Anabel Duvall on 03-16-2024 Calcium [Mass/Vol] 9.6 mg/dL 8.5-10.1 [facility] Serum or plasma creatinine m easurement (mass/volume)Ordered By: Anabel Duvall on 03-16-2024 Creatinine [Mass/Vol] 0.93 mg/dL 0.55-1.02 [facility] Comment on above: The validity of the calculated GFR & GFRAA in patients over 70 years has not been determined. Clinical correlation is essential. Serum or plasma urea nitroge n measurement (mass/volume)Ordered By: Anabel Duvall on 03-16-2024 Urea nitrogen [Mass/Vol] 24 mg/dL High 7-18 [facility] Sodium levelOrdered By: Chino Duvall on 03-16-2024 Sodium [Moles/Vol] 139 mmol/L 136-145 [facility] Total proteinOrdered By: Shan Duvall on 03-16-2024 Protein [Mass/Vol] 8.2 g/dL 6.4-8.2 [facility] White blood cell (WBC) count Ordered By: Anabel Duvall on 03-16-2024 WBC (Bld) [#/Vol] 4.8 10*3/uL 4.4-11.0 [facility] MR Abdomen WO and W [...] Splenomegaly due to portal hypertension. 5. Nonspecific shanatl hepatic lymphadenopathy 6. Limited due to patient motion. CRITICAL TEST RESULT COMMUNICATION: Notification of these findings was made to ALISSON MORTON via [employer] Secure Chat on 12/24/2023 9:32 AM EST. Report Dictated on Electronically Signed By: Jovi Davis MD Electronically Signed Date/Time: 12/24/2023 9:33 AM EST [facility] Patient Name: RICARDO VILLALPANDO : 1940 [...] study but measures at least 3.4 cm [facility] Jovi Davis MD - 12/24/2023 [...] findings was made to ALISSON MORTON via [employer] Chat on 12/24/2023 9:32 AM EST. Report Dictated on Electronically Signed By: Jovi Davis MD Electronically Signed Date/Time: 12/24/2023 9:33 AM EST [facility] MR Abdomen WO and W contrast IVOrdered By: Jovi Davis on 12-24-2023 [facility] Work Phone: MR Abdomen WO and W contrast Verito 12-20-2023 Radiology Study observation (narrative) [facility] US ABDOMEN LIMITEDon US ABDOMEN LIMITED Patient Name: RICARDO VILLALPANDO DOB: 1940 Exam Date/Time: 11/11/2023 09:18 Procedure: US [...] Signed Date/Time: 11/12/2023 7:58 AM EDT [facility] US Abdomen limitedon 024 1. Heterogeneous and [...] Electronically Signed Date/Time: 11/12/2023 7:58 AM EDT [facility] [employer] [facility] Patient Name: RICARDO VILLALPANDO : 1940 [...] mass or hydronephrosis. Ascites: Trace perihepatic ascites [facility] Jovi Davis MD - 11/12/2023 Patient Name: RICARDO VILLALPANDO : 1940 [id number] Exam Date/Time: 11/11/2023 09:18 Procedure: US ABDOMEN [...] Electronically Signed Date/Time: 11/12/2023 7:58 AM EDT [place] US Abdomen limitedOrdered By : Jovi Davis on 11-12-2023 [facility] [employer] Work Phone: US Abdomen limitedon 024 Radiology Study observation (narrative) [place] ECG 12 leadon 08-18-2023 NSR with PAC's Low voltage in limb leads. -Nonspecific T-abnormality. ABNORMAL [facility] Bacteria identified Cx Nom ( U)Ordered By: Fallon Lopez on 05-13-2023 Interpretation and review of laboratory results Normal [facility] Urine culture (clean catch)O rdered By: Fallon Lopez on 05-13-2023 Bacteria identified Cx Nom (U) Normal urogenital nayeli present [place] Urinalysis complete panel (U )Ordered By: Antoine Cedeno on 05-11-2023 Bacteria LM.HPF (Urine sed) [#/Area] Moderate Abnormal Negative /HPF [place] Bilirubin Ql (U) Negative Negative mg/dL [place] Clarity (U) Clear Clear [place] Color (U) Light Yellow Lt. Yellow [place] Epithelial cells.squamous LM.HPF (Urine sed) [#/Area] Negative [place] Glucose Ql (U) Normal Normal (<70) mg/dL [place] Hemoglobin Ql (U) Negative Negative mg/dL [place] Hyaline casts Auto (Urine sed) [#/Area] 6-10 Abnormal Negative /LPF [place] Interpretation and review of laboratory results Abnormal [place] Ketones (U) [Mass/Vol] Negative Negat brook mg/dL [place] Leukocyte esterase Test strip Ql (U) 25 Abnormal Negative Xavier/uL [place] Nitrite Ql (U) Negative Negative [place] pH (U) 5.0 [pH] 5.0 - 8.0 pH [place] Protein (U) [Mass/Vol] Negative Negat brook mg/dL [place] RBC LM.HPF (Urine sed) [#/Area] Negative [place] Specific gravity (U) [Rel density] 1.013 1.005 - 1.030 [place] Urobilinogen (U) [Mass/Vol] Normal Normal (0-1) mg/dL [place] Volume, Urine 12 mL [facility] [employer] WBC LM.HPF (Urine sed) [#/Area] 0-2 [facility] [employer] [facility] [employer] US Abdomenon 10-29-2022 1. Unremarkable postcholecystectomy ultrasound of the abdomen as discussed --- unchanged since prior study 4.5 months ago (heterogeneous echogenicity of the liver without focal lesions). Report Dictated on Electronically Signed By: Rufus Miller MD Electronically Signed Date/Time: 10/29/2022 4:15 PM EDT [facility] Patient Name: RICARDO VILLALPANDO : [...] inferior vena cava are within normal limits. [facility] Rufus Miller MD - 10/29/2022 [...] Electronically Signed Date/Time: 10/29/2022 4:15 PM EDT [facility] [employer] US AbdomenOrdered By: Jero Miller on 10-29-2022 [facility] [employer] Work Phone: US Abdomenon 10-28-2022 Radiology Study observation (narrative) [facility] [employer] Comprehensive metabolic 1998 panelon 09-24-2022 Albumin [Mass/Vol] 4.2 g/dL 3.5 - 5.0 g/dL [facility] [employer] ALP [Catalytic activity/Vol] 211 U/L High 38 - 126 U/L [place] ALT [Catalytic activity/Vol] 82 U/L High 0 - 34 U/L [facility] [employer] Anion gap [Moles/Vol] 3 mmol/L 3 - 13 mmol/L [facility] [employer] AST [Catalytic activity/Vol] 103 U/L High 15 - 46 U/L [place] Bilirubin [Mass/Vol] 0.4 mg/dL 0.2 - 1 .3 mg/dL [place] Calcium [Mass/Vol] 9.5 mg/dL 8.4 - 10. 4 mg/dL [facility] [employer] Chloride [Moles/Vol] 106 mmol/L 98 - 10 7 mmol/L [facility] [employer] CO2 [Moles/Vol] 32 mmol/L High 22 - 30 mmol/L [facility] [employer] Creatinine [Mass/Vol] 0.85 mg/dL 0.52 - 1.04 mg/dL [place] GFR/1.73 sq M.predicted MDRD (S/P/Bld) [Vol rate/Area] 69.8 mL/min/{1.73_m2} - PINF [place] Comment on above: Calculation based on the Chronic Kidney Disease Epidemiology Collaboration (CKD-EPI) equation refit without adjustment for race Glucose [Mass/Vol] 108 mg/dL High 70 - 100 mg/dL [facility] [employer] Potassium [Moles/Vol] 4.2 mmol/L 3.5 - 5.1 mmol/L [facility] [employer] Protein [Mass/Vol] 8.5 g/dL High 6.3 - 8.2 g/dL [facility] [employer] Sodium [Moles/Vol] 142 mmol/L 135 - 145 mmol/L [facility] [employer] Urea nitrogen [Mass/Vol] 18 mg/dL High 7 - 17 mg/dL [facility] [employer] Lipid 1996 panelon 3 Cholesterol [Mass/Vol] 143 mg/dL NINF - 200 mg/dL [facility] [employer] Cholesterol in HDL [Mass/Vol] 61 mg/dL High 40 - 60 mg/dL [facility] [employer] Cholesterol in LDL [Mass/Vol] 73 mg/dL 0 - <100 [place] Cholesterol.total/Chol esterol in HDL [Mass ratio] 2 {ratio} [place] Comment on above: Ref Range: < 3 Low Risk for CHD 3-6 Mod Risk for CHD > 6 High Risk for CHD Triglyceride [Mass/Vol] 45 mg/dL NINF - 150 mg/dL [facility] [employer] No Panel Informationon 09-24 Interpretation and review of laboratory results Abnormal [facility] [employer] Basic metabolic 1997 panelon 09-14-2022 Anion gap [Moles/Vol] 8 mmol/L 3 - 13 mmol/L [facility] [employer] Calcium [Mass/Vol] 9.2 mg/dL 8.4 - 10. 4 mg/dL [facility] [employer] Chloride [Moles/Vol] 102 mmol/L 98 - 10 7 mmol/L [facility] [employer] CO2 [Moles/Vol] 31 mmol/L High 22 - 30 mmol/L [facility] [employer] Creatinine [Mass/Vol] 0.92 mg/dL 0.52 - 1.04 mg/dL [facility] [employer] GFR/1.73 sq M.predicted MDRD (S/P/Bld) [Vol rate/Area] 63.5 mL/min/{1.73_m2} - PINF [place] Comment on above: Calculation based on the Chronic Kidney Disease Epidemiology Collaboration (CKD-EPI) equation refit without adjustment for race Glucose [Mass/Vol] 139 mg/dL High 70 - 100 mg/dL [place] Interpretation and review of laboratory results Abnormal [place] Potassium [Moles/Vol] 4.1 mmol/L 3.5 - 5.1 mmol/L [place] Sodium [Moles/Vol] 140 mmol/L 135 - 145 mmol/L [place] Urea nitrogen [Mass/Vol] 23 mg/dL High 7 - 17 mg/dL [facility] No Panel Informationon 08-25 [place] Absolute lymphocyte countOrd ered By: Anabel Duvall on 07-09-2022 Lymphocytes Auto (Unsp spec) [#/Vol] 1.56 10*3/uL 0.83-4.51 [facility] Basophil percentageOrdered B y: Anabel Duvall on 07-09-2022 Basophils/100 WBC (Bld) 1.2 % 0-1 [facility] Chloride [Moles/Vol] 111 mmol/L 98-107 [facility] Eosinophils/100 WBC (Bld) 3.2 % 0-5 [facility] Glucose [Mass/Vol] 115 mg/dL 74-106 [facility] Comment on above: Fasting Glucose resu lt from 100 to 125 mg/dL suggests IMPAIRED HOMEOSTASIS per A.D.A. criteria. Neutrophils (Bld) [#/Vol] 2.8 10*3/uL 2.0-7.7 [facility] Neutrophils/100 WBC (Bld) 56.0 % 47-70 [facility] Potassium [Moles/Vol] 4.3 mmol/L 3.5-5.1 [facility] Sodium [Moles/Vol] 144 mmol/L 136-145 [facility] WBC (Bld) [#/Vol] 5.1 10*3/uL 4.4-11.0 [facility] Blood erythrocytes count (nu mber/volume)Ordered By: Anabel Duvall on 07-09-2022 RBC (Bld) [#/Vol] 3.60 10*6/uL 4.2-5.4 [facility] Blood hemoglobin measurement (mass/volume)Ordered By: Anabel Duvall on 07-09-2022 Hemoglobin (Bld) [Mass/Vol] 10.0 g/dL 12.0-15.0 [facility] Blood lymphocytes/100 leukoc ytesOrdered By: nav Duvall on 07-09-2022 Lymphocytes/100 WBC (Bld) 30.9 % 19-41 [facility] Blood monocytes/100 leukocyt esOrdered By: nav Duvall on 07-09-2022 Monocytes/100 WBC (Bld) 8.5 % 0-10 [facility] Blood platelet mean volumeOr dered By: Anabel Duvall on 07-09-2022 Platelet mean volume (Bld) [Entitic vol] 12.2 fL 6.2-12.0 [facility] Determination of erythrocyte mean corpuscular volume (MCV)Ordered By: kunrichlandsjono Duvall on 07-09-2022 MCV (RBC) [Entitic vol] 91.1 fL 81-99 [facility] Hematocrit Auto (Bld) [Volum e fraction]Ordered By: [facility] Berrienjono Duvall on 07-09-2022 Hematocrit (Bld) [Volume fraction] 32.8 % 37-47 [facility] Laboratory - Chemistry and C hemistry - challengeOrdered By: nav Duvall on 07-09-2022 CO2 [Moles/Vol] 31.0 mmol/L 21.0-32.0 [facility] Urea nitrogen/Creatinine [Mass ratio] 35.1 mg/mg 10-20 [facility] Laboratory - Hematology and Cell countsOrdered By: kunrichlandsjono Duvall on 07-09-2022 Erythrocyte distribution width (RBC) [Entitic vol] 62.8 fL 35.1-43.9 [facility] Erythrocyte distribution width (RBC) [Ratio] 19.1 % 11.6-14.6 [facility] Immature granulocytes/100 WBC (Bld) 0.200 % 0.0-0.9 [facility] Comment on above: IG% - Immature Granu locytes (promyelocytes, myelocytes and metamyelocytes) > 1% indicates that a LEFT SHIFT is Present. MCH (RBC) [Entitic mass] 27.8 pg 27.0-32.0 [facility] Nucleated RBC/100 WBC (Bld) [Ratio] 0 % 0-5 [facility] MCHC Auto (RBC) [Mass/Vol]Or dered By: Anabel Duvall on 07-09-2022 MCHC (RBC) [Mass/Vol] 30.5 g/dL 32-36 [facility] No Panel InformationOrdered By: Anabel Duvall on 07-09-2022 Estimated GFR (MDRD) Amer 82 mL/min >60 [facility] Comment on above: GFR Calc Estimated GFR (MDRD) Non-Af Amer 68 mL/min >60 [facility] Comment on above: Non- GFR Calc Platelets bldOrdered By: Shan Duvall on 07-09-2022 Platelets (Bld) [#/Vol] 207 10*3/uL 150-450 [facility] Serum or plasma calcium blanco urement (mass/volume)Ordered By: Anabel Duvall on 07-09-2022 Calcium [Mass/Vol] 8.7 mg/dL 8.5-10.1 [facility] Serum or plasma creatinine m easurement (mass/volume)Ordered By: Anabel Duvall on 07-09-2022 Creatinine [Mass/Vol] 0.85 mg/dL 0.55-1.02 [facility] Comment on above: The validity of the calculated GFR & GFRAA in patients over 70 years has not been determined. Clinical correlation is essential. Serum or plasma urea nitroge n measurement (mass/volume)Ordered By: Anabel Duvall on 07-09-2022 Urea nitrogen [Mass/Vol] 30 mg/dL 7-18 [facility] Thin prep Papanicolaou smear with manual screeningOrdered By: Anabel Duvall on 07-09-2022 Thin prep Papanicolaou smear with manual screening 2 5-15 [facility] Basophil percentageOrdered B y: Fallonmatthieu Mcclendon on 06-26-2022 Ammonia (P) [Moles/Vol] 27.0 umol/L 11-32 [facility] Absolute lymphocyte countOrd ered By: Anabel Duvall on 06-25-2022 Lymphocytes Auto (Unsp spec) [#/Vol] 1.27 10*3/uL 0.83-4.51 [facility] Basophil percentageOrdered B y: Anabel Duvall on 06-25-2022 Basophils/100 WBC (Bld) 0.9 % 0-1 [facility] Bilirubin [Mass/Vol] 0.40 mg/dL 0.20-1.00 [facility] Comment on above: For patients on eltr ombopag therapy, use of Dimension [place] TBIL is not recommended. Chloride [Moles/Vol] 111 mmol/L 98-107 [facility] Eosinophils/100 WBC (Bld) 2.0 % 0-5 [facility] Glucose [Mass/Vol] 122 mg/dL 74-106 [facility] Comment on above: Fasting Glucose resu lt from 100 to 125 mg/dL suggests IMPAIRED HOMEOSTASIS per A.D.A. criteria. Neutrophils (Bld) [#/Vol] 4.4 10*3/uL 2.0-7.7 [facility] Neutrophils/100 WBC (Bld) 69.0 % 47-70 [facility] Potassium [Moles/Vol] 3.7 mmol/L 3.5-5.1 [facility] Protein [Mass/Vol] 6.7 g/dL 6.4-8.2 [facility] Sodium [Moles/Vol] 146 mmol/L 136-145 [facility] WBC (Bld) [#/Vol] 6.4 10*3/uL 4.4-11.0 [facility] Blood erythrocytes count (nu mber/volume)Ordered By: Anaebl Duvall on 06-25-2022 RBC (Bld) [#/Vol] 3.33 10*6/uL 4.2-5.4 [facility] Blood hemoglobin measurement (mass/volume)Ordered By: Anabel Duvall on 06-25-2022 Hemoglobin (Bld) [Mass/Vol] 9.2 g/dL 12.0-15.0 [facility] Blood lymphocytes/100 leukoc ytesOrdered By: Anabel Duvall on 06-25-2022 Lymphocytes/100 WBC (Bld) 19.8 % 19-41 [facility] Blood monocytes/100 leukocyt esOrdered By: Anabel Duvall on 06-25-2022 Monocytes/100 WBC (Bld) 8.1 % 0-10 [facility] Blood platelet mean volumeOr dered By: nav Duvall on 06-25-2022 Platelet mean volume (Bld) [Entitic vol] 11.9 fL 6.2-12.0 [facility] Determination of erythrocyte mean corpuscular volume (MCV)Ordered By: Chinorichlandsjono Duvall on 06-25-2022 MCV (RBC) [Entitic vol] 89.2 fL 81-99 [facility] Hematocrit Auto (Bld) [Volum e fraction]Ordered By: kunrichlandsjono Duvall on 06-25-2022 Hematocrit (Bld) [Volume fraction] 29.7 % 37-47 [facility] Laboratory - Chemistry and C hemistry - challengeOrdered By: Anabel Duvall on 06-25-2022 ALP [Catalytic activity/Vol] 240 U/L 45-117 [facility] ALT [Catalytic activity/Vol] 132 U/L 13-56 [facility] CO2 [Moles/Vol] 30.0 mmol/L 21.0-32.0 [facility] Globulin (S) [Mass/Vol] 4.3 g/dL 2.2-4.2 [facility] Urea nitrogen/Creatinine [Mass ratio] 27.6 mg/mg 10-20 [facility] Laboratory - Hematology and Cell countsOrdered By: Anabel Duvall on 06-25-2022 Erythrocyte distribution width (RBC) [Entitic vol] 53.0 fL 35.1-43.9 [facility] Erythrocyte distribution width (RBC) [Ratio] 17.0 % 11.6-14.6 [facility] Immature granulocytes/100 WBC (Bld) 0.200 % 0.0-0.9 [facility] Comment on above: IG% - Immature Granu locytes (promyelocytes, myelocytes and metamyelocytes) > 1% indicates that a LEFT SHIFT is Present. MCH (RBC) [Entitic mass] 27.6 pg 27.0-32.0 [facility] Nucleated RBC/100 [facility] (Bld) [[facility]] 0 [facility] [Mass/Vol]Or dered By: Anabel Duvall on 06-25-2022 MCHC (RBC) [Mass/Vol] 31.0 g/dL 32-36 [facility] No Panel InformationOrdered By: Anabel Duvall on 06-25-2022 Estimated GFR (MDRD) Amer 81 mL/min >60 [facility] Comment on above: GFR Calc Estimated GFR (MDRD) Non-Af Amer 67 mL/min >60 [facility] Comment on above: Non- GFR Calc Platelets bldOrdered By: Shan Duvall on 06-25-2022 Platelets (Bld) [#/Vol] 216 10*3/uL 150-450 [facility] Serum or plasma albumin blanco urement (mass/volume)Ordered By: Anabel Duvall on 06-25-2022 Albumin [Mass/Vol] 2.4 g/dL 3.2-5.0 [facility] Serum or plasma albumin/glob ulin mass ratioOrdered By: Anabel Duvall on 06-25-2022 Albumin/Globulin [Mass ratio] 0.6 {ratio} 0.9-2.4 [facility] Serum or plasma calcium blanco urement (mass/volume)Ordered By: Anabel Duvall on 06-25-2022 Calcium [Mass/Vol] 8.0 mg/dL 8.5-10.1 [facility] Serum or plasma creatinine m easurement (mass/volume)Ordered By: Anabel Duvall on 06-25-2022 Creatinine [Mass/Vol] 0.87 mg/dL 0.55-1.02 [facility] Comment on above: The validity of the calculated GFR & GFRAA in patients over 70 years has not been determined. Clinical correlation is essential. Serum or plasma urea nitroge n measurement (mass/volume)Ordered By: Anabel Duvall on 06-25-2022 Urea nitrogen [Mass/Vol] 24 mg/dL -18 [facility] Thin prep Papanicolaou smear with manual screeningOrdered By: Anabel Duvall on 06-25-2022 Thin prep Papanicolaou smear with manual screening 163 U/L 15-37 [facility] Thin prep Papanicolaou smear with manual screening 5 5-15 [facility] Whole blood hemoglobin A1c/t otal hemoglobin ratio (mass fraction)Ordered By: Anabel Duvall on 06-25-2022 HbA1c (Bld) [Mass fraction] 5.7 % 3.8-5.6 [facility] Comment on above: Normal < 5.7 % Predi abetic 5.7 - 6.4 % Diabetic >or= 6.5 % Please note range changes. CBC panel Auto (Bld)Ordered By: Zack Hastings on 06-16-2022 Erythrocyte distribution width (RBC) [Ratio] 14.9 % High 11.5 - 14.5 % [place] Hematocrit (Bld) [Volume fraction] 28.0 % Low 35.0 - 47.0 % [place] Hemoglobin (Bld) [Mass/Vol] 9.4 g/dL Low 11.7 - 16.0 g/dL [place] Interpretation and review of laboratory results Abnormal [place] MCH (RBC) [Entitic mass] 27.3 pg 26.0 - 34.0 pg [place] MCHC (RBC) [Mass/Vol] 33.5 % 32.0 - 36.0 % [place] MCV (RBC) [Entitic vol] 81.5 fL 80.0 - 98.0 fL [place] Platelet mean volume (Bld) [Entitic vol] 8.7 fL 7.4 - 12.4 fL [place] Platelets (Bld) [#/Vol] 166 10*3/uL 140 - 440 10*3/uL [place] RBC (Bld) [#/Vol] 3.44 10*6/uL Low 3.8 - 5.20 10*6/uL [place] WBC (Bld) [#/Vol] 6.3 10*3/uL 3.6 - 10.7 10*3/uL [facility] Comprehensive metabolic 1998 panelon 06-16-2022 Albumin [Mass/Vol] 2.7 g/dL Low 3.5 - 5.0 g/dL [place] ALP [Catalytic activity/Vol] 156 U/L High 38 - 126 U/L [place] ALT [Catalytic activity/Vol] 140 U/L High 0 - 34 U/L [place] Anion gap [Moles/Vol] 0 mmol/L Low 3 - 13 mmol/L [place] AST [Catalytic activity/Vol] 167 U/L High 15 - 46 U/L [place] Bilirubin [Mass/Vol] 0.2 mg/dL 0.2 - 1 .3 mg/dL [place] Calcium [Mass/Vol] 7.5 mg/dL Low 8.4 - 10. 4 mg/dL [place] Chloride [Moles/Vol] 108 mmol/L High 98 - 10 7 mmol/L [place] CO2 [Moles/Vol] 29 mmol/L 22 - 30 mmol/L [place] Creatinine [Mass/Vol] 0.77 mg/dL 0.52 - 1.04 mg/dL [place] GFR/1.73 sq M.predicted MDRD (S/P/Bld) [Vol rate/Area] 78.6 mL/min/{1.73_m2} - PINF [place] Comment on above: Calculation based on the Chronic Kidney Disease Epidemiology Collaboration (CKD-EPI) equation refit without adjustment for race Glucose [Mass/Vol] 92 mg/dL 70 - 100 mg/dL [place] Interpretation and review of laboratory results Abnormal [place] Potassium [Moles/Vol] 3.2 mmol/L Low 3.5 - 5.1 mmol/L [place] Protein [Mass/Vol] 6.4 g/dL 6.3 - 8.2 g/dL [place] Sodium [Moles/Vol] 138 mmol/L 135 - 145 mmol/L [place] Urea nitrogen [Mass/Vol] 21 mg/dL High 7 - 17 mg/dL [facility] Laboratory - Microbiology an d Antimicrobial susceptibilityOrdered By: Hazel Harrison on 06-16-2022 SARS-CoV-2 (COVID-19) Ag IA.rapid Ql (Resp) Negative Negative [place] Comment on above: A negative result do es not rule out the possibility of SARS-CoV-2 infection. NAAT-based methods should be considered for symptomatic patients presenting greater than seven days after onset of symptoms. Method: Lateral flow immunoassay. Fact sheets for healthcare providers and patients can be found at the following sites: https://www.fda.gov/media/576795/download https://www.[employer].gov/media/210265/download SARS-CoV-2 (COVID-19) Ag IA. rapid Ql (Resp)Ordered By: Hazel Harrison on 06-16-2022 Interpretation and review of laboratory results Normal [facility] CBC panel Auto (Bld)Ordered By: Kayla Lira on 06-15-2022 Erythrocyte distribution width (RBC) [Ratio] 14.3 % 11.5 - 14.5 % [place] Hematocrit (Bld) [Volume fraction] 27.5 % Low 35.0 - 47.0 % [place] Hemoglobin (Bld) [Mass/Vol] 9.1 g/dL Low 11.7 - 16.0 g/dL [place] Interpretation and review of laboratory results Abnormal [place] MCH (RBC) [Entitic mass] 27.4 pg 26.0 - 34.0 pg [place] MCHC (RBC) [Mass/Vol] 33.3 % 32.0 - 36.0 % [place] MCV (RBC) [Entitic vol] 82.4 fL 80.0 - 98.0 fL [place] Platelet mean volume (Bld) [Entitic vol] 9.1 fL 7.4 - 12.4 fL [place] Platelets (Bld) [#/Vol] 165 10*3/uL 140 - 440 10*3/uL [place] RBC (Bld) [#/Vol] 3.34 10*6/uL Low 3.8 - 5.20 10*6/uL [place] WBC (Bld) [#/Vol] 6.1 10*3/uL 3.6 - 10.7 10*3/uL [facility] Comprehensive metabolic 1998 panelon 06-15-2022 Albumin [Mass/Vol] 2.6 g/dL Low 3.5 - 5.0 g/dL [place] ALP [Catalytic activity/Vol] 221 U/L High 38 - 126 U/L [place] ALT [Catalytic activity/Vol] 136 U/L High 0 - 34 U/L [place] Anion gap [Moles/Vol] 2 mmol/L Low 3 - 13 mmol/L [place] AST [Catalytic activity/Vol] 189 U/L High 15 - 46 U/L [place] Bilirubin [Mass/Vol] 0.2 mg/dL 0.2 - 1 .3 mg/dL [place] Calcium [Mass/Vol] 7.5 mg/dL Low 8.4 - 10. 4 mg/dL [place] Chloride [Moles/Vol] 107 mmol/L 98 - 10 7 mmol/L [place] CO2 [Moles/Vol] 27 mmol/L 22 - 30 mmol/L [place] Creatinine [Mass/Vol] 0.87 mg/dL 0.52 - 1.04 mg/dL [place] GFR/1.73 sq M.predicted MDRD (S/P/Bld) [Vol rate/Area] 67.9 mL/min/{1.73_m2} - PINF [place] Comment on above: Calculation based on the Chronic Kidney Disease Epidemiology Collaboration (CKD-EPI) equation refit without adjustment for race Glucose [Mass/Vol] 111 mg/dL High 70 - 100 mg/dL [place] Interpretation and review of laboratory results Abnormal [place] Potassium [Moles/Vol] 3.5 mmol/L 3.5 - 5.1 mmol/L [place] Protein [Mass/Vol] 6.0 g/dL Low 6.3 - 8.2 g/dL [place] Sodium [Moles/Vol] 137 mmol/L 135 - 145 mmol/L [place] Urea nitrogen [Mass/Vol] 21 mg/dL High 7 - 17 mg/dL [facility] Ferritin [Mass/Vol]on 2022 Interpretation and review of laboratory results Normal [facility] Iron and Iron binding capaci ty panelon 06-15-2022 Interpretation and review of laboratory results Abnormal [place] Iron [Mass/Vol] 23 ug/dL Low 37 - 170 ug/dL [place] Iron binding capacity [Mass/Vol] 330 ug/dL 261 - 497 ug/dL [place] Iron saturation [Mass fraction] 7 % Low 15 - 50 % [facility] Laboratory - Chemistry and C hemistry - challengeon 06-15-2022 Ferritin [Mass/Vol] 20 ng/mL 11 - 264 ng/mL [place] No Panel InformationOrdered By: Rajat Swanson on 06-15-2022 P Anderson 89 degrees [place] Work Phone: IL Interval 177 ms [employer] Work Phone: [phone] QRS Anderson -20 degrees [employer] Work Phone: [phone] QRSD Interval 90 ms [employer] Work Phone: [phone] QT Interval 438 ms [employer] Work Phone: [phone] QTC Interval 481 ms [employer] Work Phone: T Wave Anderson 39 degrees [employer] Work Phone: [phone] [employer] Work Phone: [phone] No Panel Informationon 06-15 Sinus rhythm Atrial premature complex Borderline left axis deviation Borderline low voltage, extremity leads Compared to ECG 02/11/2019 07:22:58 Atrial premature complex(es) now present Atrial fibrillation no longer present Electronically Signed On 06-15-2022 2:53:31 EDT by Rajat [facility] Rajat Dudley D O - 06/15/2022 IMPRESSION: Sinus rhythm Atrial premature complex Borderline left axis deviation Borderline low voltage, extremity leads Compared to ECG 02/11/2019 07:22:58 Atrial premature complex(es) now present Atrial fibrillation no longer present Electronically Signed On 06-15-2022 2:53:31 EDT by [facility] US Abdomen limitedon 023 Nonspecific coarsene d heterogeneous echotexture of the liver without focal lesion identified. Correlation with LFTs is recommended. Trace ascites. Report Dictated on Electronically Signed By: Seymour Bragg Electronically Signed Date/Time: 06/15/2022 8:48 AM EDT [facility] Patient Name: RICARDO VILLALPANDO : [...] Right kidney: No pelvicalyceal dilatation Ascites: Trace [facility] Seymour Bragg MD - 06/15/2022 [...] Electronically Signed Date/Time: 06/15/2022 8:48 AM EDT [facility] Study observation (narrative) [employer] US Abdomen limitedOrdered By : Seymour Bragg on 06-15-2022 [employer] Work Phone: Vital signsOrdered By: Ivet Swanson on 06-15-2022 Heart rate 73 /min bpm [employer] Work Phone: CBC W Auto Differential pane l (Bld)Ordered By: Cristiane Womack on 06-14-2022 Basophils (Bld) [#/Vol] 0.0 10*3/uL 0.0 - 0.2 10*3/uL [employer] Basophils/100 WBC (Bld) 0.4 % 0.0 - 2.0 % [facility] Eosinophils (Bld) [#/Vol] 0.1 10*3/uL 0.0 - 0.5 10*3/uL [place] Eosinophils/100 WBC (Bld) 1.8 % 1.0 - 6.0 % [place] Erythrocyte distribution width (RBC) [Ratio] 14.4 % 11.5 - 14.5 % [place] Hematocrit (Bld) [Volume fraction] 27.0 % Low 35.0 - 47.0 % [place] Hemoglobin (Bld) [Mass/Vol] 8.9 g/dL Low 11.7 - 16.0 g/dL [place] Interpretation and review of laboratory results Abnormal [place] Lymphocytes (Bld) [#/Vol] 1.1 10*3/uL 1.0 - 4.3 10*3/uL [place] Lymphocytes/100 WBC (Bld) 25.1 % 20.0 - 40.0 % [place] MCH (RBC) [Entitic mass] 26.8 pg 26.0 - 34.0 pg [place] MCHC (RBC) [Mass/Vol] 32.8 % 32.0 - 36.0 % [place] MCV (RBC) [Entitic vol] 81.7 fL 80.0 - 98.0 fL [place] Monocytes (Bld) [#/Vol] 0.3 10*3/uL 0.0 - 0.8 10*3/uL [place] Monocytes/100 WBC (Bld) 6.5 % 2.0 - 10.0 % [place] Neutrophils (Bld) [#/Vol] 3.0 10*3/uL 1.8 - 7.0 10*3/uL [place] Neutrophils/100 WBC (Bld) 66.2 % 40.0 - 80.0 % [place] Nucleated RBC/100 WBC (Bld) [Ratio] 0.0 % [place] Platelet mean volume (Bld) [Entitic vol] 8.8 fL 7.4 - 12.4 fL [place] Platelets (Bld) [#/Vol] 171 10*3/uL 140 - 440 10*3/uL [place] RBC (Bld) [#/Vol] 3.31 10*6/uL Low 3.8 - 5.20 10*6/uL [place] WBC (Bld) [#/Vol] 4.6 10*3/uL 3.6 - 10.7 10*3/uL [facility] Comprehensive metabolic 1998 panelon 06-14-2022 Albumin [Mass/Vol] 2.7 g/dL Low 3.5 - 5.0 g/dL [place] ALP [Catalytic activity/Vol] 141 U/L High 38 - 126 U/L [place] ALT [Catalytic activity/Vol] 152 U/L High 0 - 34 U/L [place] Anion gap [Moles/Vol] 1 mmol/L Low 3 - 13 mmol/L [place] AST [Catalytic activity/Vol] 218 U/L High 15 - 46 U/L [place] Bilirubin [Mass/Vol] 0.3 mg/dL 0.2 - 1 .3 mg/dL [place] Calcium [Mass/Vol] 8.1 mg/dL Low 8.4 - 10. 4 mg/dL [place] Chloride [Moles/Vol] 107 mmol/L 98 - 10 7 mmol/L [place] CO2 [Moles/Vol] 30 mmol/L 22 - 30 mmol/L [place] Creatinine [Mass/Vol] 0.78 mg/dL 0.52 - 1.04 mg/dL [place] GFR/1.73 sq M.predicted MDRD (S/P/Bld) [Vol rate/Area] 77.4 mL/min/{1.73_m2} - PINF [place] Comment on above: Calculation based on the Chronic Kidney Disease Epidemiology Collaboration (CKD-EPI) equation refit without adjustment for race Glucose [Mass/Vol] 91 mg/dL 70 - 100 mg/dL [place] Interpretation and review of laboratory results Abnormal [place] Potassium [Moles/Vol] 3.6 mmol/L 3.5 - 5.1 mmol/L [place] Protein [Mass/Vol] 6.4 g/dL 6.3 - 8.2 g/dL [place] Sodium [Moles/Vol] 138 mmol/L 135 - 145 mmol/L [place] Urea nitrogen [Mass/Vol] 22 mg/dL High 7 - 17 mg/dL [facility] Laboratory - Chemistry and C hemistry - challengeon 06-14-2022 Lactate [Moles/Vol] 0.7 mmol/L 0.7 - 2. 0 mmol/L [place] No Panel Informationon 06-14 Interpretation and review of laboratory results Normal [facility] Acetaminophen [Mass/Vol]on 0 06-13-2022 Interpretation and review of laboratory results Abnormal [facility] CBC W Auto Differential pane l (Bld)Ordered By: Adela Giron on 06-13-2022 Basophils (Bld) [#/Vol] 0.0 10*3/uL 0.0 - 0.2 10*3/uL [place] Basophils/100 WBC (Bld) 0.5 % 0.0 - 2.0 % [place] Eosinophils (Bld) [#/Vol] 0.0 10*3/uL 0.0 - 0.5 10*3/uL [place] Eosinophils/100 WBC (Bld) 0.5 % Low 1.0 - 6.0 % [place] Erythrocyte distribution width (RBC) [Ratio] 14.6 % High 11.5 - 14.5 % [place] Hematocrit (Bld) [Volume fraction] 28.7 % Low 35.0 - 47.0 % [place] Hemoglobin (Bld) [Mass/Vol] 9.5 g/dL Low 11.7 - 16.0 g/dL [place] Interpretation and review of laboratory results Abnormal [place] Lymphocytes (Bld) [#/Vol] 1.3 10*3/uL 1.0 - 4.3 10*3/uL [facility] Lymphocytes/100 WBC (Bld) 19.0 % Low 20.0 - 40.0 % [place] MCH (RBC) [Entitic mass] 26.9 pg 26.0 - 34.0 pg [place] MCHC (RBC) [Mass/Vol] 33.0 % 32.0 - 36.0 % [place] MCV (RBC) [Entitic vol] 81.7 fL 80.0 - 98.0 fL [place] Monocytes (Bld) [#/Vol] 0.3 10*3/uL 0.0 - 0.8 10*3/uL [facility] Monocytes/100 WBC (Bld) 5.0 % 2.0 - 10.0 % [place] Neutrophils (Bld) [#/Vol] 5.2 10*3/uL 1.8 - 7.0 10*3/uL [place] Neutrophils/100 WBC (Bld) 75.0 % 40.0 - 80.0 % [employer] Nucleated RBC/100 WBC (Bld) [Ratio] 0.0 % N(i)² [employer] Platelet mean volume (Bld) [Entitic vol] 9.2 fL 7.4 - 12.4 fL N(i)² [employer] Platelets (Bld) [#/Vol] 188 10*3/uL 140 - 440 10*3/uL N(i)² [employer] RBC (Bld) [#/Vol] 3.51 10*6/uL Low 3.8 - 5.20 10*6/uL N(i)² [employer] WBC (Bld) [#/Vol] 6.9 10*3/uL 3.6 - 10.7 10*3/uL [facility] [employer] [place] CT Head WO contraston 2022 1. No acute intracranial findings. 2. Probable chronic ischemic and atrophic changes. Report Dictated on Electronically Signed By: Niko Talley Electronically Signed Date/Time: 06/13/2022 3:16 PM EDT [facility] Patient Name: RICARDO VILLALPANDO : 1940 Exam Date/Time: 06/13/2022 15:08 Procedure: CT HEAD WO IV CONTRAST Ordering Provider: CNITRON NISHIT Reason For Exam: Head trauma, minor [...] diffuse volume loss. Osseous calvarium grossly intact. [facility] [employer] [facility] Niko Talley MD - 06/13/2022 Patient Name: RICARDO VILLALPANDO : 1940 Exam Date/Time: 06/13/2022 15:08 [...] Electronically Signed Date/Time: 06/13/2022 3:16 PM EDT [place] [facility] observation (narrative) [facility] [employer] CT Head WO contrastOrdered B y: Niko Talley on 06-13-2022 [facility] [employer] Work Phone: Comprehensive metabolic 1998 panelon 06-13-2022 Albumin [Mass/Vol] 3.4 g/dL Low 3.5 - 5.0 g/dL [facility] [employer] ALP [Catalytic activity/Vol] 176 U/L High 38 - 126 U/L [facility] [employer] ALT [Catalytic activity/Vol] 185 U/L High 0 - 34 U/L [facility] [employer] Anion gap [Moles/Vol] 3 mmol/L 3 - 13 mmol/L [place] AST [Catalytic activity/Vol] 311 U/L High 15 - 46 U/L [place] Bilirubin [Mass/Vol] 0.5 mg/dL 0.2 - 1 .3 mg/dL [place] Calcium [Mass/Vol] 8.7 mg/dL 8.4 - 10. 4 mg/dL [place] Chloride [Moles/Vol] 104 mmol/L 98 - 10 7 mmol/L [place] CO2 [Moles/Vol] 27 mmol/L 22 - 30 mmol/L [place] Creatinine [Mass/Vol] 0.80 mg/dL 0.52 - 1.04 mg/dL [place] GFR/1.73 sq M.predicted MDRD (S/P/Bld) [Vol rate/Area] 75.1 mL/min/{1.73_m2} - PINF [place] Comment on above: Calculation based on the Chronic Kidney Disease Epidemiology Collaboration (CKD-EPI) equation refit without adjustment for race Glucose [Mass/Vol] 114 mg/dL High 70 - 100 mg/dL [place] Interpretation and review of laboratory results Abnormal [place] Potassium [Moles/Vol] 3.7 mmol/L 3.5 - 5.1 mmol/L [place] Protein [Mass/Vol] 7.5 g/dL 6.3 - 8.2 g/dL [place] Sodium [Moles/Vol] 134 mmol/L Low 135 - 145 mmol/L [place] Urea nitrogen [Mass/Vol] 26 mg/dL High 7 - 17 mg/dL [facility] Fibrin D-dimer FEU (PPP) [Ma ss/Vol]on 06-13-2022 Interpretation and review of laboratory results Normal [facility] D-Dimer va lues of <0.50 mg/L FEU can be used in combination with a pre-test probability model (e.g. Well's) to exclude pulmonary embolism (PE) disease, as well as an aid in the diagnosis of deep vein thrombosis (DVT). [facility] Hepatitis 1996 panel (S)on 0 06-13-2022 HAV IgM IA Ql Not detected Not Detected [place] HBV core IgM IA Ql Not detected Not Detected [facility] HBV surface Ag IA Ql Not detected Not Detected [place] HCV Ab IA Ql Not detected Not Detected [place] Comment on above: Patients with DETECT ED Hepatitis C Ab results should have a new specimen submitted for supplemental testing with a Hepatitis C Quantitative RNA assay (viral load), if clinically indicated. Interpretation and review of laboratory results Normal [facility] Laboratory - Chemistry and C hemistry - challengeon 06-13-2022 TSH Qn 3.546 m[IU]/L [place] Glucose [Mass/Vol] 114 mg/dL [place] Troponin I.cardiac [Mass/Vol] ng/mL 0.000 - 0.034 ng/mL [place] Laboratory - Chemistry and C hemistry - challengeOrdered By: Aylin Del Rosario on 06-13-2022 Lactate [Moles/Vol] 2.2 mmol/L Critically high 0.7 - 2.0 mmol/L [place] Laboratory - Coagulationon 0 06-13-2022 Fibrin D-dimer FEU (PPP) [Mass/Vol] mg/L NINF - 0.50 mg/L [place] PT Coag (Bld) [Time] 11.6 s 9.0 - 12.0 s [facility] Laboratory - Drug toxicology on 06-13-2022 Acetaminophen [Mass/Vol] ug/mL Low 10.0 - 30.0 ug/mL [place] Natriuretic peptide B [Mass/ Vol]on 06-13-2022 Interpretation and review of laboratory results Abnormal [place] Natriuretic peptide B (Bld) [Mass/Vol] 575 pg/mL High <20 - 300 [place] No Panel Informationon 06-13 Interpretation and review of laboratory results Normal [facility] <50% stenosis in the right [...] Artery: Normal. 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 During the study longitudinal and transverse views were obtained. Pulsed wave doppler was performed. The exam was performed with the patient in the supine position. Overall the study quality was good. CV CPACS No Panel InformationOrdered By: Aylin Del Rosario on 06-13-2022 Interpretation and review of laboratory results Abnormal [employer] No Panel InformationOrdered By: Any Palomino on 06-13-2022 Left CCA dist EDV 8.1 cm/s [employer] Work Phone: Left CCA dist PSV 75.4 cm/s [employer] Phone: Left CCA mid EDV 9.30 cm/s [employer] Phone: Left CCA mid PSV 92.60 cm/s [employer] Phone: Left CCA prox EDV 17.9 cm/s [employer] Phone: Left CCA prox PSV 119.5 cm/s [employer] Phone: Left ECA EDV 0.00 cm/s [employer] Phone: Left ECA PSV 74.6 cm/s [employer] Phone: Left ICA dist EDV 17.0 cm/s [employer] Phone: Left ICA dist PSV 74.6 cm/s [employer] Work Phone: Left ICA mid EDV 13.3 cm/s [employer] Phone: Left ICA mid PSV 77.0 cm/s [employer] Phone: Left ICA prox EDV 13.3 cm/s [employer] Phone: Left ICA prox PSV 63.6 cm/s [employer] Phone: Left ICA/CCA PSV 0.83 [employer] Phone: Left subclavian dist EDV 3.1 cm/s [...] Phone: Right ICA prox EDV 13.1 cm/s [employer] Work Phone: Right ICA prox PSV 62.5 cm/s [employer] Work Phone: Right ICA/CCA PSV 0.93 [employer] Work Phone: Right subclavian mid EDV 1.3 cm/s [employer] Work Phone: [phone] Right subclavian mid PSV 122.2 cm/s [employer] Work Phone: Right vertebral EDV 9.50 cm/s [employer] Work Phone: Right vertebral PSV 66.6 cm/s [employer] Work Phone: PT Coag (Bld) [Time]on 06-13 INR Coag (PPP) [Relative time] 1.1 {INR} 0.9 - 1.1 [facility] Comment on above: Recommended Anticoag ulant Therapy: [...] and review of laboratory results Normal [facility] TSH Qnon 06-13-2022 Interpretation and review of laboratory results Normal [facility] Troponin I.cardiac [Mass/Vol ]on 06-13-2022 Interpretation and review of laboratory results Normal [place] Patients with high l evels of Biotin oral intake (ie >5 mg/day) may have falsely decreased Troponin levels. [facility] [employer] XR Pelvis 1 or 2 [facility] No fracture or dislocation. Report Dictated on Electronically Signed By: Jovi Davis Electronically Signed Date/Time: 06/13/2022 3:33 PM EDT [facility] Patient Name: RICARDO VILLALPANDO : [...] identified. There is no soft tissue abnormality. [facility] Jovi Davis MD - 06/13/2022 [...] Electronically Signed Date/Time: 06/13/2022 3:33 PM EDT [place] [facility] Study observation (narrative) [place] XR Pelvis 1 or 2 ViewsOrdere d By: Jovi Davis on 06-13-2022 [facility] [employer] Work Phone: Absolute lymphocyte countOrd ered By: ED PROVIDER on 06-01-2022 Lymphocytes Auto (Unsp spec) [#/Vol] 1.57 10*3/uL 0.83-4.51 [facility] Basophil percentageOrdered B y: Dr. Younger on 06-01-2022 Basophil percentage 0-5 SEEN /hpf 0-5 [facility] Bilirubin [Mass/Vol] 0.30 mg/dL 0.20-1.00 [facility] Comment on above: For patients on eltr ombopag therapy, use of Dimension [place] TBIL is not recommended. Protein [Mass/Vol] 7.8 g/dL 6.4-8.2 [facility] Basophil percentageOrdered B y: ED PROVIDER on 06-01-2022 Basophils/100 WBC (Bld) 0.7 % 0-1 [facility] Chloride [Moles/Vol] 105 mmol/L 98-107 [facility] Eosinophils/100 WBC (Bld) 1.1 % 0-5 [facility] Glucose [Mass/Vol] 124 mg/dL 74-106 [facility] Comment on above: Fasting Glucose resu lt from 100 to 125 mg/dL suggests IMPAIRED HOMEOSTASIS per A.D.A. criteria. Neutrophils (Bld) [#/Vol] 4.9 10*3/uL 2.0-7.7 [facility] Neutrophils/100 WBC (Bld) 70.1 % 47-70 [facility] Potassium [Moles/Vol] 3.5 mmol/L 3.5-5.1 [facility] Sodium [Moles/Vol] 137 mmol/L 136-145 [facility] WBC (Bld) [#/Vol] 7.0 10*3/uL 4.4-11.0 [facility] Bilirubin Test strip Ql (U)O rdered By: Dr. Younger on 06-01-2022 Bilirubin Ql (U) Negative Negative [facility] Blood erythrocytes count (nu mber/volume)Ordered By: ED PROVIDER on 06-01-2022 RBC (Bld) [#/Vol] 3.71 10*6/uL 4.2-5.4 [facility] Blood hemoglobin measurement (mass/volume)Ordered By: ED PROVIDER on 06-01-2022 Hemoglobin (Bld) [Mass/Vol] 10.0 g/dL 12.0-15.0 [facility] Blood lymphocytes/100 leukoc ytesOrdered By: ED PROVIDER on 06-01-2022 Lymphocytes/100 WBC (Bld) 22.3 % 19-41 [facility] Blood monocytes/100 leukocyt esOrdered By: ED PROVIDER on 06-01-2022 Monocytes/100 WBC (Bld) 5.5 % 0-10 [facility] Blood platelet mean volumeOr dered By: ED PROVIDER on 06-01-2022 Platelet mean volume (Bld) [Entitic vol] 10.5 fL 6.2-12.0 [facility] Determination of erythrocyte mean corpuscular volume (MCV)Ordered By: ED PROVIDER on 06-01-2022 MCV (RBC) [Entitic vol] 85.4 fL 81-99 [facility] Direct bilirubinOrdered By: Dr. Younger on 06-01-2022 Bilirubin.direct [Mass/Vol] 0.25 mg/dL 0.00-0.30 [facility] Hematocrit Auto (Bld) [Volum e fraction]Ordered By: ED PROVIDER on 06-01-2022 Hematocrit (Bld) [Volume fraction] 31.7 % 37-47 [facility] Influenza virus A and B and SARS-CoV-2 (COVID-19) Ag panel - Upper respiratory specimOrdered By: Dr. Younger on 06-01-2022 SARS-CoV-2 (COVID-19) RNA BALDO+probe Ql (Resp) [facility] Ketones Test strip Ql (U)Ord ered By: Dr. Younger on 06-01-2022 Ketones Ql (U) Negative Negative [facility] Laboratory - Chemistry and C hemistry - challengeOrdered By: Dr. Younger on 06-01-2022 ALP [Catalytic activity/Vol] 207 U/L 45-117 [facility] ALT [Catalytic activity/Vol] 69 U/L 13-56 [facility] Globulin (S) [Mass/Vol] 5.5 g/dL 2.2-4.2 [facility] Laboratory - Chemistry and C hemistry - challengeOrdered By: ED PROVIDER on 06-01-2022 CO2 [Moles/Vol] 31.0 mmol/L 21.0-32.0 [facility] Urea nitrogen/Creatinine [Mass ratio] 33.1 mg/mg 10-20 [facility] Laboratory - Hematology and Cell countsOrdered By: ED PROVIDER on 06-01-2022 Erythrocyte distribution width (RBC) [Entitic vol] 42.8 fL 35.1-43.9 [facility] Erythrocyte distribution width (RBC) [Ratio] 13.8 % 11.6-14.6 [facility] Immature granulocytes/100 WBC (Bld) 0.300 % 0.0-0.9 [facility] Comment on above: IG% - Immature Granu locytes (promyelocytes, myelocytes and metamyelocytes) > 1% indicates that a LEFT SHIFT is Present. MCH (RBC) [Entitic mass] 27.0 pg 27.0-32.0 [facility] Nucleated RBC/100 WBC (Bld) [Ratio] 0 % 0-5 [facility] MCHC Auto (RBC) [Mass/Vol]Or dered By: ED PROVIDER on 06-01-2022 MCHC (RBC) [Mass/Vol] 31.5 g/dL 32-36 [facility] Mucus LM Ql (Urine sed)Order ed By: Dr. Younger on 06-01-2022 Mucus Ql (Urine sed) 0 SEEN /hpf [facility] Nitrite Test strip Ql (U)Ord ered By: Dr. Younger on 06-01-2022 Nitrite Ql (U) Negative Negative [facility] No Panel InformationOrdered By: ED PROVIDER on 06-01-2022 Estimated GFR (MDRD) Amer 77 mL/min >60 [facility] Comment on above: GFR Calc Estimated GFR (MDRD) Non-Af Amer 64 mL/min >60 [facility] Comment on above: Non- GFR Calc Platelets bldOrdered By: ED PROVIDER on 06-01-2022 Platelets (Bld) [#/Vol] 248 10*3/uL 150-450 [facility] Protein Test strip Ql (U)Ord ered By: Dr. Younger on 06-01-2022 Protein Ql (U) 30 mg/dl Negative [facility] Serum or plasma albumin blanco urement (mass/volume)Ordered By: Dr. Younger on 06-01-2022 Albumin [Mass/Vol] 2.3 g/dL 3.2-5.0 [facility] Serum or plasma calcium blanco urement (mass/volume)Ordered By: ED PROVIDER on 06-01-2022 Calcium [Mass/Vol] 8.6 mg/dL 8.5-10.1 [facility] Serum or plasma creatinine m easurement (mass/volume)Ordered By: ED PROVIDER on 06-01-2022 Creatinine [Mass/Vol] 0.91 mg/dL 0.55-1.02 [facility] Comment on above: The validity of the calculated GFR & GFRAA in patients over 70 years has not been determined. Clinical correlation is essential. Serum or plasma urea nitroge n measurement (mass/volume)Ordered By: ED PROVIDER on 06-01-2022 Urea nitrogen [Mass/Vol] 30 mg/dL 7-18 [facility] Squamous epithelial cells de tection in urine sediment by light microscopyOrdered By: Dr. Younger on 06-01-2022 Epithelial cells.squamous LM Ql (Urine sed) 0-5 SEEN /hpf 5-10 [facility] Thin prep Papanicolaou smear with manual screeningOrdered By: Dr. Younger on 06-01-2022 Thin prep Papanicolaou smear with manual screening 75 U/L 15-37 [facility] Thin prep Papanicolaou smear with manual screeningOrdered By: ED PROVIDER on 06-01-2022 Thin prep Papanicolaou smear with manual screening 1 5-15 [facility] Urine blood detectionOrdered By: Dr. Younger on 06-01-2022 RBC Ql (U) Negative Negative [facility] RBC Ql (U) 0 SEEN /hpf 0-5 [facility] Urine clarityOrdered By: Dr. Younger on 06-01-2022 Clarity (U) Sl. Cloudy Clear [facility] Urine color determinationOrd ered By: Dr. Younger on 06-01-2022 Color (U) Yellow Yellow [facility] Urine glucose detectionOrder ed By: Dr. Younger on 06-01-2022 Glucose Ql (U) Normal mg/dl Normal [facility] Urine leukocyte esterase det ection by dipstickOrdered By: Dr. Younger on 06-01-2022 Leukocyte esterase Test strip Ql (U) 25 /ul Negative [facility] Urine pHOrdered By: Dr. Jacqueline delgado on 06-01-2022 pH (U) 5.0 [pH] 5.0 - 8.0 [facility] Urine sediment bacteria coun t by microscopy (number/high power field)Ordered By: Dr. Younger on 06-01-2022 Bacteria LM.HPF (Urine sed) [#/Area] 0 /[HPF] None Seen [facility] Urine specific gravity measu rementOrdered By: Dr. Younger on 06-01-2022 Specific gravity (U) [Rel density] 1.015 1.002-1.030 [facility] Urobilinogen Auto test strip Ql (U)Ordered By: Dr. Younger on 06-01-2022 Urobilinogen Ql (U) 1 mg/dl Normal [facility] Absolute lymphocyte countOrd ered By: Dr. Pack on 05-13-2022 Lymphocytes Auto (Unsp spec) [#/Vol] 1.03 10*3/uL 0.83-4.51 [facility] Basophil percentageOrdered B y: Dr. Pack on 05-13-2022 Basophils/100 WBC (Bld) 0.8 % 0-1 [facility] Chloride [Moles/Vol] 106 mmol/L 98-107 [facility] Eosinophils/100 WBC (Bld) 4.1 % 0-5 [facility] Glucose [Mass/Vol] 102 mg/dL 74-106 [facility] Comment on above: Fasting Glucose resu lt from 100 to 125 mg/dL suggests IMPAIRED HOMEOSTASIS per A.D.A. criteria. Neutrophils (Bld) [#/Vol] 3.0 10*3/uL 2.0-7.7 [facility] Neutrophils/100 WBC (Bld) 61.7 % 47-70 [facility] Potassium [Moles/Vol] 3.9 mmol/L 3.5-5.1 [facility] Sodium [Moles/Vol] 139 mmol/L 136-145 [facility] WBC (Bld) [#/Vol] 4.8 10*3/uL 4.4-11.0 [facility] Blood erythrocytes count (nu mber/volume)Ordered By: Dr. Pack on 05-13-2022 RBC (Bld) [#/Vol] 3.19 10*6/uL 4.2-5.4 [facility] Blood hemoglobin measurement (mass/volume)Ordered By: Dr. Pack on 05-13-2022 Hemoglobin (Bld) [Mass/Vol] 8.7 g/dL 12.0-15.0 [facility] Blood lymphocytes/100 leukoc ytesOrdered By: Dr. Pack on 05-13-2022 Lymphocytes/100 WBC (Bld) 21.4 % 19-41 [facility] Blood monocytes/100 leukocyt esOrdered By: Dr. Pack on 05-13-2022 Monocytes/100 WBC (Bld) 11.8 % 0-10 [facility] Blood platelet mean volumeOr dered By: Dr. Pack on 05-13-2022 Platelet mean volume (Bld) [Entitic vol] 11.9 fL 6.2-12.0 [facility] Determination of erythrocyte mean corpuscular volume (MCV)Ordered By: Dr. Pack on 05-13-2022 MCV (RBC) [Entitic vol] 89.0 fL 81-99 [facility] Glucose Glucometer (dC) [M ass/Vol]Ordered By: Dr. Pack on 05-13-2022 Glucose [Mass/Vol] 131 mg/dL 74-106 [facility] Comment on above: MANAGEMENT OF PATIEN T CARE PER NURSING PROTOCOL Hematocrit Auto (Bld) [Volum e fraction]Ordered By: Dr. Pack on 05-13-2022 Hematocrit (Bld) [Volume fraction] 28.4 % 37-47 [facility] INR in Blood by Coagulation assayOrdered By: Dr. Gill on 05-13-2022 INR Coag (Bld) [Relative time] 1.2 {INR} [facility] Iron measurement (mass/mass) Ordered By: Dr. Pack on 05-13-2022 Iron (Unsp spec) [Mass/Mass] 39 ug/dL 50-170 [facility] Laboratory - Chemistry and C hemistry - challengeOrdered By: Dr. Pack on 05-13-2022 CO2 [Moles/Vol] 28.0 mmol/L 21.0-32.0 [facility] Urea nitrogen/Creatinine [Mass ratio] 23.3 mg/mg 10-20 [facility] Laboratory - CoagulationOrde red By: Dr. Gill on 05-13-2022 aPTT Coag (Bld) [Time] 34.4 s 24.1-36.2 [facility] PT Coag (PPP) [Time] 14.7 s 11.7-14.9 [facility] Laboratory - Hematology and Cell countsOrdered By: Dr. Pack on 05-13-2022 Erythrocyte distribution width (RBC) [Entitic vol] 42.1 fL 35.1-43.9 [facility] Erythrocyte distribution width (RBC) [Ratio] 13.0 % 11.6-14.6 [facility] Immature granulocytes/100 WBC (Bld) 0.200 % 0.0-0.9 [facility] Comment on above: IG% - Immature Granu locytes (promyelocytes, myelocytes and metamyelocytes) > 1% indicates that a LEFT SHIFT is Present. MCH (RBC) [Entitic mass] 27.3 pg 27.0-32.0 [facility] Nucleated RBC/100 WBC (Bld) [Ratio] 0 % 0-5 [facility] MCHC Auto (RBC) [Mass/Vol]Or dered By: Dr. Pack on 05-13-2022 MCHC (RBC) [Mass/Vol] 30.6 g/dL 32-36 [facility] No Panel InformationOrdered By: Dr. Pack on 05-13-2022 Estimated Creatinine Clearance Calc 37.10 ml/min [facility] Estimated GFR (MDRD) Amer 82 mL/min >60 [facility] Comment on above: GFR Calc Estimated GFR (MDRD) Non-Af Amer 68 mL/min >60 [facility] Comment on above: Non- GFR Calc Total Iron Binding Capacity 406 ug/dL 250-450 [facility] Platelets bldOrdered By: Dr. Pack on 05-13-2022 Platelets (Bld) [#/Vol] 178 10*3/uL 150-450 [facility] Serum or plasma calcium blanco urement (mass/volume)Ordered By: Dr. Pack on 05-13-2022 Calcium [Mass/Vol] 9.1 mg/dL 8.5-10.1 [facility] Serum or plasma creatinine m easurement (mass/volume)Ordered By: Dr. Pack on 05-13-2022 Creatinine [Mass/Vol] 0.86 mg/dL 0.55-1.02 [facility] Comment on above: The validity of the calculated GFR & GFRAA in patients over 70 years has not been determined. Clinical correlation is essential. Serum or plasma ferritin ellen surement (mass/volume)Ordered By: Dr. Pack on 05-13-2022 Ferritin [Mass/Vol] 17 ng/mL 8-252 [facility] Serum or plasma iron saturat ion measurement (mass fraction)Ordered By: Dr. Pack on 05-13-2022 Iron saturation [Mass fraction] 9.6 % 15.0-55.0 [facility] Serum or plasma urea nitroge n measurement (mass/volume)Ordered By: Dr. Pack on 05-13-2022 Urea nitrogen [Mass/Vol] 20 mg/dL 7-18 [facility] Thin prep Papanicolaou smear with manual screeningOrdered By: Dr. Pack on 05-13-2022 Thin prep Papanicolaou smear with manual screening 5 5-15 [facility] Whole blood hemoglobin A1c/t otal hemoglobin ratio (mass fraction)Ordered By: Dr. Gill on 05-13-2022 HbA1c (Bld) [Mass fraction] 5.7 % 3.8-5.6 [facility] Comment on above: Normal < 5.7 % Predi abetic 5.7 - 6.4 % Diabetic >or= 6.5 % Please note range changes. Laboratory - Chemistry and C hemistry - challengeon 02-23-2022 Glucose [Mass/Vol] 119 mg/dL High 70 - 100 mg/dL [place] No Panel Informationon 02-23 Interpretation and review of laboratory results Abnormal [place] Performed by: JOSE JUAN ID: [id number] [facility] CT Head or Brain w/o Contras ton 05-13-2021 CT Head or Brain w/o Contrast Patient Name: RICARDO VILLALPANDO Computed Tomography ACCESSION EXAM DATE/TIME PROCEDURE ORDERING PROVIDER [id number] 05/13/2021 16:[address] Head or Brain w/o ROYCE KOEHLER Contrast CPT code 40412 Reason For Exam (CT Head or Brain [...] Transcribed Date and Time: 05/14/2021 8:13 Normal [facility] Comp Metabolic Panelon 12-30 ALP [Catalytic activity/Vol] 157 U/L High 38-126 [facility] Comment on above: Performed By: #### C MP3 #### [facility] [address] [place] [address] ALT [Catalytic activity/Vol] 45 U/L High 0-34 [facility] Comment on above: Result Comment: The ALT test is performed by an updated assay method. Please note that the reference intervals have been changed and are now sex specific. Performed By: #### C MP3 #### [facility] [address] [place] [address] Calcium [Mass/Vol] 10.0 mg/dL Normal 8.4-10.4 [facility] Comment on above: Performed By: #### C MP3 #### [facility] [address] [place] [address] Glucose [Mass/Vol] 109 mg/dL High 70-100 [facility] Comment on above: Performed By: #### C MP3 #### [facility] [address] [place] [address] Urea nitrogen [Mass/Vol] 19 mg/dL Normal 9-20 [facility] Comment on above: Performed By: #### C MP3 #### [facility] [address] [place] [address] Anion gap [Moles/Vol] 2 mmol/L Low 3-13 [facility] Comment on above: Performed By: #### C MP3 #### [facility] [address] [place] [address] AST [Catalytic activity/Vol] 65 U/L High 15-46 [facility] Comment on above: Performed By: #### C MP3 #### [facility] [address] [place] [address] Bilirubin [Mass/Vol] 0.4 mg/dL Normal 0.2-1.3 [facility] Comment on above: Performed By: #### C MP3 #### [facility] [address] [place] [address] CO2 [Moles/Vol] 34 mmol/L High 22-30 [facility] Comment on above: Performed By: #### C MP3 #### [facility] [address] [place] [address] Creatinine [Mass/Vol] 0.96 mg/dL Normal 0.52-1.25 [facility] Comment on above: Performed By: #### C MP3 #### [facility] [address] [place] [address] GFR/1.73 sq M.predicted among blacks MDRD (S/P/Bld) [Vol rate/Area] 65.6 mL/min/{1.73_m2} Normal >60 [facility] Comment on above: Performed By: #### C MP3 #### [facility] [address] [place] [address] GFR/1.73 sq M.predicted among non-blacks MDRD (S/P/Bld) [Vol rate/Area] 56.6 mL/min/{1.73_m2} Abnormal >60 [facility] Comment on above: Result Comment: KDIG [...] secretion. Performed By: #### C MP3 #### [facility] [address] [place] [address] Protein [Mass/Vol] 7.7 g/dL Normal 6.3-8.2 [facility] Comment on above: Performed By: #### C MP3 #### [facility] [address] [place] [address] Potassium [Moles/Vol] 3.7 mmol/L Normal 3.5-5.1 [facility] Comment on above: Performed By: #### C MP3 #### [facility] [address] [place] [address] Sodium [Moles/Vol] 142 mmol/L Normal 135-145 [facility] Comment on above: Performed By: #### C MP3 #### [facility] [address] [place] [address] Albumin [Mass/Vol] 4.0 g/dL Normal 3.5-5.0 [facility] Comment on above: Performed By: #### C MP3 #### [facility] [address] [place] [address] Chloride [Moles/Vol] 105 mmol/L Normal 98-107 [facility] Comment on above: Performed By: #### C MP3 #### [facility] [address] [place] [address] Hemogramon 11-08-2020 Erythrocyte distribution width (RBC) [Ratio] 12.5 % Normal 11.5-14.5 [facility] Comment on above: Performed By: #### H EMOSierra, LIPD2 #### [facility] [address] [place] [address] Hematocrit (Bld) [Volume fraction] 37.0 % Normal 35.0-47.0 [facility] Comment on above: Performed By: #### H EMOG, LIPD2 #### [facility] [address] [place] [address] Hemoglobin (Bld) [Mass/Vol] 12.6 g/dL Normal 11.7-16.0 [facility] Comment on above: Performed By: #### H EMOG, LIPD2 #### [facility] [address] [place] [address] MCH (RBC) [Entitic mass] 31.7 pg Normal 26.0-34.0 [facility] Comment on above: Performed By: #### H EMOG, LIPD2 #### [facility] [address] [place] [address] MCHC 34.1 % Normal 32.0-36.0 [facility] Comment on above: Performed By: #### H EMOG, LIPD2 #### [facility] [address] [place] [address] MCV (RBC) [Entitic vol] 92.9 fL Normal 79.0-98.0 [facility] Comment on above: Performed By: #### H EMOG, LIPD2 #### [facility] [address] [place] [address] Platelet mean volume (Bld) [Entitic vol] 9.4 fL Normal 7.4-10.4 [facility] Comment on above: Performed By: #### H EMOG, LIPD2 #### [facility] [address] [place] [address] Platelets (Bld) [#/Vol] 208 10*3/uL Normal 140-440 [facility] Comment on above: Performed By: #### H EMOG, LIPD2 #### [facility] [address] [place] [address] RBC (Bld) [#/Vol] 3.98 10*6/uL Normal 3.80-5.20 [facility] Comment on above: Performed By: #### H EMOG, LIPD2 #### [facility] [address] [place] [address] WBC (Bld) [#/Vol] 7.3 10*3/uL Normal 3.6-10.7 [facility] Comment on above: Performed By: #### H EMOG, LIPD2 #### [facility] [address] [place] [address] Lipid Panelon 11-08-2020 Chol/HDL 2 Normal [facility] Comment on above: Result Comment: Ref Range: < 3 Low Risk for CHD 3-6 Mod Risk for CHD > 6 High Risk for CHD Performed By: #### H EMOG, LIPD2 #### [facility] [address] [place] [address] Cholesterol in HDL [Mass/Vol] 61 mg/dL High 40-60 [facility] Comment on above: Performed By: #### H EMOG, LIPD2 #### [facility] [address] [place] [address] Low Density Lipoprotein 53 mg/dL Normal <100 [facility] Comment on above: Performed By: #### H EMOG, LIPD2 #### [facility] [address] [place] [address] Triglyceride [Mass/Vol] 63 mg/dL Normal <150 [facility] Comment on above: Performed By: #### H EMOG, LIPD2 #### [facility] [address] [place] [address] Cholesterol [Mass/Vol] 127 mg/dL Normal < 200 [facility] Comment on above: Performed By: #### H EMOG, LIPD2 #### [facility] [address] [place] [address] US ABDOMEN LIMITEDOrdered By : Alisson Morton on 08-20-2020 Patient Name: RICARDO VILLALPANDO Ultrasound ACCESSION EXAM DATE/TIME PROCEDURE ORDERING PROVIDER [id number] 08/20/2020 09:18 EDT US Abdomen Limited DO MORTON LISA CPT code 05075 Reason For Exam (US Abdomen Limited) elevated [...] Phone: [facility] Incoming Radiology Results From [facility] - 08/20/2020 9:18 AM EDT Patient Name: [id number] Ultrasound ACCESSION EXAM DATE/TIME PROCEDURE ORDERING PROVIDER [id number] 08/20/2020 09:18 EDT US Abdomen Limited DO MORTON LISA CPT code 61775 Reason For Exam (US Abdomen Limited) elevated [...] R Transcribed Date and Time: 08/20/2020 9:18 [facility] Work Phone: [facility] Work Phone: US Abdomen Limitedon 021 US Abdomen Limited Patient Name: RICARDO VILLALPANDO Ultrasound ACCESSION EXAM DATE/TIME PROCEDURE ORDERING PROVIDER [id number] 08/20/2020 09:18 EDT US Abdomen Limited DO PRAVEEN ALISSON CPT code 23043 Reason For Exam (US Abdomen Limited) elevated [...] Transcribed Date and Time: 08/20/2020 9:18 Normal [facility] Hepatic Functionon 1 ALP [Catalytic activity/Vol] 173 U/L High 38-126 [facility] Comment on above: Performed By: #### L FT3 #### [facility] [address] [place] [address] ALT [Catalytic activity/Vol] 62 U/L High 0-34 [facility] Comment on above: Result Comment: The ALT test is performed by an updated assay method. Please note that the reference intervals have been changed and are now sex specific. Performed By: #### L FT3 #### [facility] [address] [place] [address] AST [Catalytic activity/Vol] 76 U/L High 15-46 [facility] Comment on above: Performed By: #### L FT3 #### [facility] [address] [place] [address] Bilirubin [Mass/Vol] 0.5 mg/dL Normal 0.2-1.3 [facility] Comment on above: Performed By: #### L FT3 #### [facility] [address] [place] [address] Bilirubin.indirect [Mass/Vol] 0.0 mg/dL Normal 0.0-0.3 [facility] Comment on above: Performed By: #### L FT3 #### [facility] [address] [place] [address] Protein [Mass/Vol] 7.5 g/dL Normal 6.3-8.2 [facility] Comment on above: Performed By: #### L FT3 #### [facility] [address] [place] [address] Albumin [Mass/Vol] 4.0 g/dL Normal 3.5-5.0 [facility] Comment on above: Performed By: #### L FT3 #### [facility] [address] [place] [address] Medical Cytologyon 1 Medical Cytology [facility] [id number] DEPARTMENT OF PATHOLOGY [facility] LABORATORY MEDICINE [address] [place] [address] FINAL MEDICAL CYTOLOGY REPORT NAME: RICARDO VILLALPANDO : 1940 79 Y F BILLING NO.: [id number] LOCATION: [facility] ULTRASOUND PROCEDURE 06/04/2020 DATE: PHYSICIAN: ADELA REEVES PA-C RECEIVED DATE: 06/04/2020 ATTENDING: ADELA REEVES PA-C REPORT DATE: 06/05/2020 COPIES TO: EDIS MARIA D.O. CLINICAL DATA: Left thyroid nodule DIAGNOSIS Diagnostic Category: BENIGN. Benign follicular nodule. Scant groups of benign-appearing follicular cells present in a background of peripheral blood elements. Comment: According to the Xenia System for Reporting Thyroid Cytopathology, the implied [...] FINE NEEDLE ASPIRATION GROSS DESCRIPTION: 30 ml, Upham fluid, w/cytolyt. Materials Prepared & Examined: Cell [...] characteristics determined by the clinical laboratories of [facility]. They have not been cleared by [...] negativity on decalcified specimens. Case reviewed at [place] [address] [place] [address]. DEPARTMENT OF PATHOLOGY AND LABORATORY MEDICINE [place], [place] [address] [email or web address] [facility] US Biopsy Thyroidon 06-05-19 21 US Biopsy Thyroid Patient Name: RICARDO VILLALPANDO Ultrasound ACCESSION EXAM DATE/TIME PROCEDURE ORDERING PROVIDER [id number] 06/04/2020 11:17 EDT US Biopsy Thyroid POONAM REEVES AMBER CPT code 65686 27[address] Reason For Exam (US Biopsy Thyroid) left [...] I Transcribed Date and Time: 06/04/2020 12:14 [facility] US GUIDED THYROID BIOPSY PER CUTANEOUSOrdered By: dAela Reeves on 06-04-2020 Patient Name: RICARDO VILLALPANDO Ultrasound ACCESSION EXAM DATE/TIME PROCEDURE ORDERING PROVIDER [id number] 06/04/2020 11:17 EDT US Biopsy Thyroid POONAM REEVES AMBER CPT code 88779 58307 Reason For Exam (US Biopsy Thyroid) left [...] Phone: [facility] Incoming Radiology Results From [facility] - 06/04/2020 12:14 PM EDT Patient Name: RICARDO VILLALPANDO Ultrasound ACCESSION EXAM DATE/TIME PROCEDURE ORDERING PROVIDER [id number] 06/04/2020 11:17 EDT US Biopsy Thyroid POONAM REEVES AMBER CPT code 31803 27915 Reason For Exam (US Biopsy Thyroid) left [...] Ultrasound ACCESSION EXAM DATE/TIME PROCEDURE ORDERING PROVIDER [id number] 05/21/2020 14:35 EDT US Parathyroid BIBI WYATT RYAN C CPT code 96322 Reason For Exam (US Parathyroid) Throid nodule [...] Transcribed Date and Time: 05/22/2020 11:57 Normal [facility] XR KNEE RIGHT (MIN 4 VIEWS)o n 02-07-2020 Patient Name: RICARDO VILLALPANDO Diagnostic Radiology ACCESSION EXAM DATE/TIME PROCEDURE ORDERING PROVIDER [id number] 02/07/2020 15:25 EST CR Knee Complete 4+ ESTERLE, DO, ALISSON Views Right CPT code 39837 Reason For Exam (CR Knee Complete 4+ [...] LAURA Transcribed Date and Time: 02/07/2020 4:46 [facility] Incoming Radiology Results From [facility] - 02/07/2020 4:46 PM EST Patient Name: RICARDO VILLALPANDO Diagnostic Radiology ACCESSION EXAM DATE/TIME PROCEDURE ORDERING PROVIDER [id number] 02/07/2020 15:25 EST CR Knee Complete 4+ ESTERLE, DO, ALISSON Views Right CPT code 86369 Reason For Exam (CR Knee Complete 4+ [...] LAURA Transcribed Date and Time: 02/07/2020 4:46 [place], [place] CT HEAD OR BRAIN W/O CONTRAS [...] Date: 12/02/2019 7:26:15 PM Ordering Provider:Peter Cantu Replaced by [facility]) CT MAXILLOFACIAL W/O CONTRAS Ton 12-02-2019 CT [...] Date: 12/02/2019 8:18:14 PM Ordering Provider:Peter Cantu Replaced by [facility]) CYTOLOGY, NON-GYNon 11-09-19 Cytology report Cyto stain.thin prep Doc (Cvx/Vag) SEE BELOW [facility], [place] 1 [facility] [id number] DEPARTMENT OF PATHOLOGY AND [facility] LABORATORY MEDICINE [address] [place], [place] [address], [place] [address] FINAL MEDICAL CYTOLOGY REPORT NAME: RICARDO VILLALPANDO : 1940 79 Y F BILLING NO.: [id number] LOCATION: [facility] ULTRASOUND PROCEDURE 11/09/2019 DATE: PHYSICIAN: ZOE WYATT RECEIVED DATE: 11/09/2019 ATTENDING: ZOE WYATT REPORT DATE: 11/09/2019 COPIES TO: SHANICE RIVERA MD CLINICAL DATA: DIAGNOSIS Diagnostic Category: BENIGN. Benign follicular nodule, consistent with a colloid nodule. Many groups of follicular cells and colloid present. Comment: According to the Xenia System for Reporting Thyroid Cytopathology, the implied [...] . . . . , [facility] Screened by JENNY FERNANDEZ M.D. Printed November 09, 2019 at 4:33:03 PM Disclaimer The following statement applies to all immunohistochemistry, in situ hybridization, molecular studies, and immunofluorescence testing. The use of one or more reagents in the above tests is regulated as an analyte specific reagent (ASR). These tests were developed and their performance characteristics determined by the clinical laboratories of [facility]. They have not been cleared by [...] negativity on decalcified specimens. Case reviewed at [facility] [address] [place] [address]. DEPARTMENT OF PATHOLOGY AND LABORATORY MEDICINE [place], [place] [address] [place], [place] US FINE NEEDLE ASPIRATIONon 11-09-2019 Patient Name: RICARDO VILLALPANDO ---Ultrasound--- Exam Date/Time 11/09/2019 11:38:38 EDT Exam US Fine Needle Aspiration w/ Image Guide Ordering Physician BIBI WYATT RYAN C Accession Number [id number] CPT4 Codes 62372 () Reason For Exam Left sided thyroid [...] KEVIN Transcribed Date and Time: 11/09/2019 2:40 [place], [place] [facility], [facility] Incoming Radiology Results From [facility] - 11/09/2019 2:40 PM EDT Patient Name: RICARDO VILLALPANDO ---Ultrasound--- Exam Date/Time 11/09/2019 11:38:38 EDT Exam US Fine Needle Aspiration w/ Image Guide Ordering Physician BIBI WYATT RYAN C Accession Number [id number] CPT4 Codes 46035 () Reason For Exam Left sided thyroid [...] KEVIN Transcribed Date and Time: 11/09/2019 2:40 [facility], [place] US THYROIDon 10-18-2019 Patient Name: RICARDO VILLALPANDO ---Ultrasound--- Exam Date/Time 10/18/2019 15:28:03 EDT Exam US Parathyroid Ordering Physician DO MORTON LISA Accession Number [id number] CPT4 Codes 04864 () Reason For Exam thyroid nodule Report [...] [facility]. May 2016 https://radiopaedia.org/a rticles/emjkccw-kfqfj-xsv dideme-nmc-vjii-system- tirads https://radiopaedia.org/a rticles/ozq-mhhekjc-dhkzo oq-vezcqnvqt-ugd-data- system-a r-ti-rads Report Dictated on --- Final --- Dictating Physician: DO ORDOÑEZ RACHEL Signed Date and Time: 10/18/2019 4:32 pm Signed by: DO ORDOÑEZ RACHEL Transcribed Date and Time: 10/18/2019 4:33 [facility], [place] [facility], [facility] Incoming Radiology Results From [facility] - 10/18/2019 4:33 PM EDT Patient Name: RICARDO VILLALPANDO ---Ultrasound--- Exam Date/Time 10/18/2019 15:28:03 EDT Exam US Parathyroid Ordering Physician DO MORTON LISA Accession Number [id number] CPT4 Codes 99054 () Reason For Exam thyroid nodule Report [...] [facility]. May 2016 https://radiopaedia.org/a rticles/cifweho-mhhxl-sww uogimu-zsq-owzn-system- tirads https://radiopaedia.org/a rticles/piw-ynluvjt-mkpmy ou-krqnwhvea-qrk-data- system-a r-ti-rads Report Dictated on --- Final --- Dictating Physician: DO ORDOÑEZ RACHEL Signed Date and Time: 10/18/2019 4:32 pm Signed by: DO ORDOÑEZ RACHEL Transcribed Date and Time: 10/18/2019 4:33 [facility], [place] BREAST ULTRASOUNDon 10-04-19 20 BREAST ULTRASOUND Patient Name: RICARDO VILLALPANDO STUDY: BREAST ULTRASOUND; 10/04/2019 11:18 am ACCESSION NUMBER(S): [id number] ORDERING CLINICIAN: ALEXYS SCHWARTZ INDICATION: The patient was recalled from recent screening mammogram 08/09/2019 for a right breast mass like asymmetry. COMPARISON: Mammogram 08/09/2019. FINDINGS: Targeted ultrasound of the right breast was performed by a registered supervisor kennel submitted for remote interpretation. A morphologically normal [...] any future breast imaging appointments, please call [phone] ([phone]). Patient letter sent SNORM I personally reviewed the images/study and I agree with the vice president of news physician, Dr. Geremias New's findings, as stated. This study was interpreted at [facility]. Electronically signed by: NAEL COLMENARES MD [facility] CT HEAD OR BRAIN W/O CONTRAS [...] Date: 09/27/2019 10:01:36 PM Ordering Provider:Felton Mitchell Replaced by [facility]) CT SPINE CERVICAL W/O CONTRA STon 09-28-2019 [...] Date: 09/27/2019 10:04:18 PM Ordering Provider:Felton Mitchell [facility] [place] XR CHEST 2 VIEWSon 0 XR CHEST [...] Date: 09/27/2019 10:20:57 PM Ordering Provider:Felton Mitchell [facility] [place] XR ELBOW MINIMUM 3 VIEWS RIG HTon [...] Date: 09/27/2019 10:20:19 PM Ordering Provider:Felton Mitchell [facility] Basic Metabolic Panelon 08-08 Anion gap [Moles/Vol] 9 mmol/L [place], [place] Calcium [Mass/Vol] 9.7 mg/dL 8.4 - 10. 4 mg/dL [place] Chloride [Moles/Vol] 99 mmol/L 98 - 10 7 mmol/L [place] CO2 [Moles/Vol] 32 mmol/L High 22 - 30 mmol/L [place] Creatinine [Mass/Vol] 1.02 mg/dL 0.52 - 1.25 mg/dL [place] EGFR IF NonAfrican [place]adian 53.1 mL/min Abnormal >60 [place] Comment on above: KDIGO guidelines pro [...] MDRD (S/P/Bld) [Vol rate/Area] 61.5 mL/min/{1.73_m2} >60 [place] Glucose [Mass/Vol] 146 mg/dL High 70 - 100 mg/dL [place] Potassium [Moles/Vol] 3.7 mmol/L 3.5 - 5.1 mmol/L [place] Sodium [Moles/Vol] 140 mmol/L 135 - 145 mmol/L [place] Urea nitrogen [Mass/Vol] 29 mg/dL High 7 - 20 mg/dL [place] CBCon 08-21-2019 Erythrocyte distribution width (RBC) [Ratio] 12.7 % 11.5 - 14.5 % [place] Hematocrit (Bld) [Volume fraction] 37.1 % 35 - 47 % [place] Hemoglobin (Bld) [Mass/Vol] 12.7 g/dL 11.7 - 16 g/dL [place] MCH (RBC) [Entitic mass] 32.0 pg 26 - 34 pg [place] MCHC (RBC) [Mass/Vol] 34.3 % 32 - 36 % [place], [place] MCV (RBC) [Entitic vol] 93.3 fL 79 - 98 fL [place] Platelet mean volume (Bld) [Entitic vol] 10.3 fL 7.4 - 10.4 fL [place] Platelets (Bld) [#/Vol] 236 10*3/uL 140 - 440 10*3/uL [place] RBC (Bld) [#/Vol] 3.97 10*6/uL 3.8 - 5.2 10*6/uL [place] WBC (Bld) [#/Vol] 8.1 10*3/uL 3.6 - 10.7 10*3/uL [place] Test Performed by [facility], [address] , [address] Hepatic Function Panelon Albumin [Mass/Vol] 4.1 g/dL 3.5 - 5 g/dL [place], [place] ALP [Catalytic activity/Vol] 172 U/L High 38 - 126 U/L [place] ALT [Catalytic activity/Vol] 63 U/L High 0 - 34 U/L [place] Comment on above: The ALT test is perf ormed by an updated assay method. Please note that the reference intervals have been changed and are now sex specific. AST [Catalytic activity/Vol] 65 U/L High 15 - 46 U/L [place] Bilirubin Ql (U) 0.4 mg/dL 0.2 - 1.3 mg/dL [place] Bilirubin.direct [Mass/Vol] 0.0 mg/dL 0 - 0.3 mg/dL [place] Protein [Mass/Vol] 7.5 g/dL 6.3 - 8.2 g/dL [place] Otheron 08-21-2019 Interpretation and review of laboratory results Abnormal [place], [place] Test Performed by [facility], [address] , [address] DIGITAL MAMM SCREENING W/ TO Lynne 08-09-2019 DIGITAL MAMM SCREENING W/ ENOCH Patient Name: RICARDO VILLALPANDO STUDY: DIGITAL MAMM SCREENING W/ ENOCH; 08/09/2019 11:50 am ACCESSION NUMBER(S): [id number] ORDERING CLINICIAN: ALEXYS SCHWARTZ INDICATION: Screening. New [...] any future breast imaging appointments, please call [phone]). Patient letter sent ROLANDO I personally reviewed the images/study and I agree with the resident, Dr. Geremias New's findings as stated. This study was interpreted at [facility]. Electronically signed by: THELMA HERNANDEZ MD [facility] Clinic Note - Heme Oncon Clinic Note - Heme Onc History of Presen t Illness: Interval History: Consulting physician Dr. Morton Reason for follow-up Weight loss History of present illness Patient is a 78-year-old white woman with past medical history of acute [place] and hypoxic brain injury at that time [...] had EGD 6 months ago either at [facility] or [facility] in July 2018 and had stent placed at [facility], at that time she was hypoxemic [...] EGD with the last 6 month at [facility] per daughter REVIEW OF SYSTEMS: Patient [...] No hepatosplenomegaly or masses. Bowel sounds positive. BARBER STYLIST: Speech is normal. Extremities: No clubbing, cyanosis, or edema. Skin: No petechial rash. Assessment and plan Patient is a 78-year-old white woman with large hiatal hernia, anoxic brain injury after severe anemia and acute [place] in July 2018 and since then she [...] weight again she will help to see network professional to see if this could be related to large hiatal hernia. Thank you very much for allowing me to participate in care of this patient, should you have any further question please do not hesitate to contact me. Charting was completed using voice recognition technology and may include unintended errors. Alexys Schwartz MD Hematology-Oncology [facility] Office [facility] Office Outpatient Medication Profile: * [...] Reference Range: STRAW,YELLOW Appearance, Urine CLEAR Specific Riley, Urine 1.020 pH, Urine 6.0 Protein, Urine NEGATIVE Glucose, Urine NEGATIVE Blood, Urine NEGATIVE Ketones, Urine NEGATIVE Bilirubin, Urine NEGATIVE Urobilinogen, Urine <2.0 Nitrite, Urine NEGATIVE Leukocyte Esterase, Urine NEGATIVE HIV Antigen/Antibody Screen 05-Jun-2019 08:31:00 ResultValue HIV Ag/Ab Screen NONREACTIVE Reference Range: NONREACTIVE HIV Ag/Ab screen is performed using the Siemens [employer]ellClear[employer] HIV Ag/Ab Combo assay which detects the [...] no Note Recipients: Alisson Morton MD - [phone] Select Yes when ready to send to Provider(s) Listed Above: Note sent to providers named above Electronic Signatures: Alexys Schwartz) (Signed 30-Jun-2019 11:34) Authored: History of Present Illness, Allergies and Outpatient Medication Profile, Problem List, Social History, Performance Assessments, Vitals and Measurements, Physical Exam, Results, Patient Instructions, To Send Document via Auto Fax Last Updated: 30-Jun-2019 11:34 by Alexys Schwartz) Normal [facility] Clinic Note - Heme Onc This report has b een cancelled. Normal [facility] Clinic Note - Intakeon 06-29 Clinic Note [...] patient using an assistive deviceno Adv Dir: [facility] Violence: Do you feel UNSAFE going back [...] Updated: 30-Jun-2019 10:14 by Sangeetha Shannon) Normal [facility] CBC AND DIFFERENTIALon 06-04 % AUTOMATED IMMATURE GRAN 0.3 % Normal 0.0 - 0.9 [facility] Comment on above: Result Comment: Apolonia ture Granulocyte Count (IG) includes promyelocytes, myelocytes and metamyelocytes but does not include bands. Percent differential counts (%) should be interpreted in the context of the absolute cell counts (cells/L). Performed By: #### C BCDF #### [facility] [address] [place] [address] Basophils (Bld) [#/Vol] 0.06 10*3/uL Normal 0.00 - 0.10 [facility] Comment on above: Performed By: #### C BCDF #### [facility] [address] [place] [address] Basophils/100 WBC (Bld) 1.0 % Normal 0.0 - 2.0 [facility] Comment on above: Performed By: #### C BCDF #### [facility] [address] [place] [address] Eosinophils (Bld) [#/Vol] 0.18 10*3/uL Normal 0.00 - 0.40 [facility] Comment on above: Performed By: #### C BCDF #### [facility] [address] [place] [address] Eosinophils/100 WBC (Bld) 3.0 % Normal 0.0 - 6.0 [facility] Comment on above: Performed By: #### C BCDF #### [facility] [address] [place] [address] Erythrocyte distribution width (RBC) [Ratio] 13.3 % Normal 11.5 - 14.5 [facility] Comment on above: Performed By: #### C BCDF #### [facility] [address] [place] [address] Hematocrit (Bld) [Volume fraction] 38.7 % Normal 36.0 - 46.0 [facility] Comment on above: Performed By: #### C BCDF #### [facility] [address] [place] [address] Hemoglobin (Bld) [Mass/Vol] 12.3 g/dL Normal 12.0 - 16.0 [facility] Comment on above: Performed By: #### C BCDF #### [facility] [address] [place] [address] Lymphocytes (Bld) [#/Vol] 1.17 10*3/uL Normal 0.80 - 3.00 [facility] Comment on above: Performed By: #### C BCDF #### [facility] [address] [place] [address] Lymphocytes/100 WBC (Bld) 19.8 % Normal 13.0 - 44.0 [facility] Comment on above: Performed By: #### C BCDF #### [facility] [address] [place] [address] MCHC (RBC) [Mass/Vol] 31.8 g/dL Low 32.0 - 36.0 [facility] Comment on above: Performed By: #### C BCDF #### [facility] [address] [place] [address] MCV (RBC) [Entitic vol] 97 fL Normal 80 - 100 [facility] Comment on above: Performed By: #### C BCDF #### [facility] [address] [place] [address] Monocytes (Bld) [#/Vol] 0.45 10*3/uL Normal 0.05 - 0.80 [facility] Comment on above: Performed By: #### C BCDF #### [facility] [address] [place] [address] Monocytes/100 WBC (Bld) 7.6 % Normal 2.0 - 10.0 [facility] Comment on above: Performed By: #### C BCDF #### [facility] [address] [place] [address] Neutrophils (Bld) [#/Vol] 4.04 10*3/uL Normal 1.60 - 5.50 [facility] Comment on above: Performed By: #### C BCDF #### [facility] [address] [place] [address] Neutrophils/100 WBC (Bld) 68.3 % Normal 40.0 - 80.0 [facility] Comment on above: Performed By: #### C BCDF #### [facility] [address] [place] [address] Nucleated RBC/100 WBC (Bld) [Ratio] 0.0 /100 WBC Normal 0.0-0.0 [facility] Comment on above: Performed By: #### C BCDF #### [facility] [address] [place] [address] Platelets (Bld) [#/Vol] 199 10*3/uL Normal 150 - 450 [facility] Comment on above: Performed By: #### C BCDF #### [facility] [address] [place] [address] RBC (Bld) [#/Vol] 3.98 x10E12/L Low 4.00 - 5.20 [facility] Comment on above: Performed By: #### C BCDF #### [facility] [address] [place] [address] WBC (Bld) [#/Vol] 5.9 10*3/uL Normal 4.4 - 11.3 [facility] Comment on above: Performed By: #### C BCDF #### [facility] [address] [place] [address] COMPREHENSIVE PANELon 2019 Albumin [Mass/Vol] 3.6 g/dL Normal 3.4 - 5.0 [facility] Comment on above: Performed By: #### C MP #### [facility] [address] [place] [address] ALP [Catalytic activity/Vol] 236 U/L High 33 - 136 [facility] Comment on above: Performed By: #### C MP #### [facility] [address] [place] [address] ALT [Catalytic activity/Vol] 77 U/L High 7 - 45 [facility] Comment on above: Result Comment: Lauren ents treated with Sulfasalazine may generate falsely decreased results for ALT. Performed By: #### C MP #### [facility] [address] [place] [address] Anion gap [Moles/Vol] 12 mmol/L Normal 10 - 20 [facility] Comment on above: Performed By: #### C MP #### [facility] [address] [place] [address] AST [Catalytic activity/Vol] 96 U/L High 9 - 39 [facility] Comment on above: Performed By: #### C MP #### [facility] [address] [place] [address] Bilirubin [Mass/Vol] 0.5 mg/dL Normal 0.0 - 1.2 [facility] Comment on above: Performed By: #### C MP #### [facility] [address] [place] [address] Calcium [Mass/Vol] 9.3 mg/dL Normal 8.6 - 10.6 [facility] Comment on above: Performed By: #### C MP #### [facility] [address] [place] [address] Chloride [Moles/Vol] 103 mmol/L Normal 98 - 107 [facility] Comment on above: Performed By: #### C MP #### [facility] [address] [place] [address] Creatinine [Mass/Vol] 0.72 mg/dL Normal 0.50 - 1.05 [facility] Comment on above: Performed By: #### C MP #### [facility] [address] [place] [address] GFR- AM. >60 Normal >60 [facility] Comment on above: Result Comment: CALC ULATIONS OF ESTIMATED GFR ARE PERFORMED USING THE MDRD STUDY EQUATION FOR THE IDMS-TRACEABLE CREATININE METHODS. CLIN CHEM 2007;53:766-72 Performed By: #### C MP #### [facility] [address] [place] [address] GFR-NON AM. >60 Normal >60 [facility] Comment on above: Performed By: #### C MP #### [facility] [address] [place] [address] Glucose [Mass/Vol] 140 mg/dL High 74 - 99 [facility] Comment on above: Performed By: #### C MP #### [facility] [address] [place] [address] HCO3 (Bld) [Moles/Vol] 31 mmol/L Normal 21 - 32 [facility] Comment on above: Performed By: #### C MP #### [facility] [address] [place] [address] Potassium [Moles/Vol] 4.1 mmol/L Normal 3.5 - 5.3 [facility] Comment on above: Performed By: #### C MP #### [facility] [address] [place] [address] Protein [Mass/Vol] 6.7 g/dL Normal 6.4 - 8.2 [facility] Comment on above: Performed By: #### C MP #### [facility] [address] [place] [address] Sodium [Moles/Vol] 142 mmol/L Normal 136 - 145 [facility] Comment on above: Performed By: #### C MP #### [facility] [address] [place] [address] Urea nitrogen [Mass/Vol] 21 mg/dL Normal 6 - 23 [facility] Comment on above: Performed By: #### C MP #### [facility] [address] [place], [place] CORTISOL,UNSPECIFIEDon 06-04 CORTISOL,UNSPECIFIED 23.2 ug/dL High 2.5 - 20.0 [facility] Comment on above: Performed By: #### C ORUN #### [facility] [address] [place], [place] HEMOGLOBIN A1Con 06-05-2019 HbA1c (Bld) [Mass fraction] 6.2 % Normal [facility] Comment on above: Result Comment: Diag nosis of Diabetes-Adults Non-Diabetic: < or = 5.6% Increased risk for developing diabetes: 5.7-6.4% Diagnostic of diabetes: > or = 6.5% . Monitoring of Diabetes Age (y) Therapeutic Goal (%) Adults: >18 <7.0 Pediatrics: 13-18 <7.5 7-12 <8.0 0- 6 7.5-8.5 [place] [employer]. Diabetes Care 33(S1), Feb 2009. Performed By: #### H BA1E #### [facility] [address] [place], [place] HbA1c (Bld) [Mass fraction] 131 MG/DL Normal [facility] Comment on above: Performed By: #### H BA1E #### [facility] [address] [place] [address] HIV ANTIGEN/ANTIBODY SCREENo n 06-05-2019 HIV AG/AB SCREEN NONREACTIVE Normal NONREACTIVE [facility] Comment on above: Result Comment: HIV Ag/Ab screen is performed using the Siemens [employer] HIV Ag/Ab Combo assay which detects the presence of HIV p24 antigen as well as antibodies to HIV-1 (Group M and O) and HIV-2. Performed By: #### H IV #### [facility] [address] [place] [address] LDHon 06-05-2019 LDH 161 U/L Normal 84 - 246 [facility] Comment on above: Performed By: #### L DH #### [facility] [address] [place], [place] TSH WITH REFLEX TO FREE T4 I F ABNORMALon 06-05-2019 TSH Qn 3.40 m[IU]/L Normal 0.44 - 3.98 [facility] Comment on above: Result Comment: Note new pediatric reference range as of 04/11/2019. TSH testing is performed using different testing methodology at [facility] than at other [facility]. Direct result comparisons should only be made within the same method. Performed By: #### T HYDS #### [facility] [address] [place], [place] Lab Specimen Source Normal [facility] Comment on above: Performed By: #### T HYDS #### [facility] [address] [place], [place] Performed By: #### C ORUN #### [place] [address] [place], [place] Performed By: #### H IV #### [facility] [address] [place] [address] URINALYSISon 06-05-2019 Appearance (U) CLEAR Normal CLEAR [facility] Comment on above: Performed By: #### U A #### [facility] [address] [place] [address] Bilirubin (U) [Mass/Vol] Negative Normal NEGATIVE [facility] Comment on above: Performed By: #### U A #### [facility] [address] [place] [address] BLOOD Negative Normal NEGATIVE [facility] Comment on above: Performed By: #### U A #### [facility] [address] [place] [address] Color (U) YELLOW Normal STRAW,YELLOW [facility] Comment on above: Performed By: #### U A #### [facility] [address] [place] [address] Glucose [Mass/Vol] Negative Normal NEGATIVE [facility] Comment on above: Performed By: #### U A #### [facility] [address] [place] [address] Ketones Ql (U) Negative Normal NEGATIVE [facility] Comment on above: Performed By: #### U A #### [facility] [address] [place] [address] Leukocyte esterase Test strip Ql (U) Negative Normal NEGATIVE [facility] Comment on above: Performed By: #### U A #### [facility] [address] [place] [address] Nitrite Ql (U) Negative Normal NEGATIVE [facility] Comment on above: Performed By: #### U A #### [facility] [address] [place] [address] pH (Bld) 6.0 Normal 5.0 - 8.0 [facility] Comment on above: Performed By: #### U A #### [facility] [address] [place] [address] Protein (U) [Mass/Vol] Negative Normal NEGATIVE [facility] Comment on above: Performed By: #### U A #### [facility] [address] [place] [address] Specific gravity (U) [Rel density] 1.020 Normal 1.005 - 1.035 [facility] Comment on above: Performed By: #### U A #### [facility] [address] [place] [address] Urobilinogen Qn (U) <2.0 Normal 0.0 - 1.9 [facility] Comment on above: Performed By: #### U A #### [facility] [address] [place] [address] Clinic Note - Heme Onc-Virtu al Visiton [...] woman with past medical history of acute [place] and hypoxic brain injury at that time [...] had EGD 6 months ago either at [facility] or [facility] in July 2018 and had stent placed at [facility], at that time she was hypoxemic [...] EGD with the last 6 month at [facility] per daughter Family history Lung disease in father, mother had dementia Allergy She thinks that she is allergic to some sort of blood thinner when she was in the hospital in February 2019 at [facility] but is not sure REVIEW OF [...] brain injury after severe anemia and acute [place] in July 2018 and since then she [...] loss she was advised to follow-up with network professional to make sure it is not related [...] include unintended errors. Alexys Schwartz MD Hematology-Oncology [place] Office [facility] Office Outpatient Medication Profile: * [...] mammogram. Note Recipients: Alisson Morton MD - [phone] Select Yes when ready to send to Provider(s) Listed Above: Note sent to providers named above Electronic Signatures: Alexys Schwartz) (Signed 02-Jun-2019 13:20) Authored: Patient Visit Information, History of Present Illness, Allergies and Outpatient Medication Profile, Problem List, Social History, Physical Exam, Patient Instructions, To Send Document via Auto Fax Last Updated: 02-Jun-2019 13:20 by Alexys Schwartz) [facility] CT Abdomen Pelvis W Contrast on 04-04-2019 Patient Name: RICARDO VILLALPANDO ---CT--- Exam Date/Time 04/04/2019 10:45:[address] Abdomen/Pelvis w/ IV Contrast (IV Onl Ordering Physician DO MORTON LISA Accession Number [id number] CPT4 Codes 34998 (CT Abdomen/Pelvis w/ IV Contrast (IV Onl) [...] JASON Transcribed Date and Time: 04/04/2019 2:56 [facility] [place] [place] [facility], [facility] Incoming Radiology Results From [facility] - 04/04/2019 2:56 PM EST Patient Name: RICARDO VILLALPANDO ---CT--- Exam Date/Time 04/04/2019 10:45:[address] Abdomen/Pelvis w/ IV Contrast (IV Onl Ordering Physician PRAVEEN ALISSON BORJA Accession Number [id number] CPT4 Codes 40333 (CT Abdomen/Pelvis w/ IV Contrast (IV Onl) [...] JASON Transcribed Date and Time: 04/04/2019 2:56 [place], [place] CT CHEST W CONTRASTon 2019 Patient Name: RICARDO VILLALPANDO ---CT--- Exam Date/Time 04/04/2019 10:45:[address] Chest w/ Contrast Ordering Physician DO MORTON LISA Accession Number [id number] CPT4 Codes 33535 (), Q9967 (CT ISOVUE 370MG/[id number]&ML&1 ) Reason For Exam abnormal weight loss [...] JASON Transcribed Date and Time: 04/04/2019 2:56 [place], [place] Kash, [facility] Incoming Radiology Results From [facility] - 04/04/2019 2:56 PM EST Patient Name: RICARDO VILLALPANDO ---CT--- Exam Date/Time 04/04/2019 10:45:[address] Chest w/ Contrast Ordering Physician DO MORTON LISA Accession Number [id number] CPT4 Codes 95683 (), Q9967 (CT ISOVUE 370MG/[id number]&ML&1 ) Reason For Exam abnormal weight loss [...] JASON Transcribed Date and Time: 04/04/2019 2:56 [place] XR ELBOW MINIMUM 3 VIEWS [facility] 04-01-2019 XR ELBOW MINIMUM 3 VIEWS RIGHT [...] Sign Date: 04/01/2019 8:02:36 AM Ordering Provider:Rakan Swift [facility] [place] XR HAND MINIMUM 3 VIEWS [facility] 04-01-2019 XR HAND MINIMUM 3 VIEWS RIGHT [...] Date: 04/01/2019 8:04:33 AM Ordering Provider:Rakan Swift [facility] [place] Creatinine, Serumon 03-31-19 Creatinine [Mass/Vol] 0.77 mg/dL 0.52 - 1.25 mg/dL [place], [place] EGFR IF NonAfrican [place] >60.0 >60 mL/min [place], [place] Comment on above: Source- MDRD equatio n with creatinine calibration to IDMS(NKDEP) eGFR not recommended for drug dose adjustment GFR/1.73 sq M predicted among blacks MDRD (S/P/Bld) [Vol rate/Area] mL/min/{1.73_m2} >60 mL/min [place], [place] Test Performed by [facility], [facility] Thao Sweeney. , [address] HEAD OR BRAIN W/O CONTRAS [...] Date: 02/24/2019 8:54:43 PM Ordering Provider:Rakan Skelton [facility] ([place]) CBC Auto DifferentialOrdered By: Gustavo Muniz on 02-18-2019 Absolute Baso # 0.1 10*3/uL 0 - 0.2 10*3/uL [facility] Work Phone: [phone] Absolute Neut # 10.3 10*3/uL High 1.8 - 7 10*3/uL [facility] Work Phone: [phone] Basophils/100 WBC (Bld) 0.5 % 0 - 2 % [facility] Work Phone: [phone] Eosinophils (Bld) [#/Vol] 0.2 10*3/uL 0 - 0.5 10*3/uL [facility] Work Phone: [phone] Eosinophils/100 WBC (Bld) 1.2 % 1 - 6 % [facility] Work Phone: [phone] Erythrocyte distribution width (RBC) [Ratio] 12.7 % 11.5 - 14.5 % [facility] Work Phone: [phone] Granulocytes/100 WBC (Bld) 78.0 % 40 - 80 % [facility] Work Phone: [phone] Hematocrit (Bld) [Volume fraction] 32.8 % Low 35 - 47 % [facility] Work Phone: [phone] Hemoglobin (Bld) [Mass/Vol] 11.3 g/dL Low 11.7 - 16 g/dL [facility] Work Phone: [phone] Interpretation and review of laboratory results Abnormal [address] [facility] Work Phone: [phone] Lymphocytes (Bld) [#/Vol] 1.9 10*3/uL 1 - 4.3 10*3/uL [facility] Work Phone: [phone] Lymphocytes/100 WBC (Bld) 14.8 % Low 20 - 40 % [facility] Work Phone: [phone] MCH (RBC) [Entitic mass] 33.4 pg 26 - 34 pg [facility] Work Phone: [phone] MCHC 34.3 % 32 - 36 % [facility] Work Phone: [phone] MCV (RBC) [Entitic vol] 97.3 fL 79 - 98 fL [facility] Work Phone: [phone] Monocytes (Bld) [#/Vol] 0.7 10*3/uL 0 - 0.8 10*3/uL [facility] Work Phone: [phone] Monocytes/100 WBC (Bld) 5.5 % 2 - 10 % [facility] Work Phone: [phone] Platelet mean volume (Bld) [Entitic vol] 10.6 fL High 7.4 - 10.4 fL [facility] Work Phone: [phone] Platelets (Bld) [#/Vol] 207 10*3/uL 140 - 440 10*3/uL [facility] Work Phone: [phone] RBC (Bld) [#/Vol] 3.37 10*6/uL Low 3.8 - 5.2 10*6/uL [facility] Work Phone: [phone] WBC (Bld) [#/Vol] 13.1 10*3/uL High 3.6 - 10.7 10*3/uL [facility] Work Phone: [phone] Test Performed by [facility] [employer] [facility], [address] [place] [address] [facility] Work Phone: [phone] Hemogram w/ Autodiffon 02-18 Abs Baso Cnt 0.1 10*3/uL Normal 0.0-0.2 [facility] Comment on above: Performed By: #### H EMDF, BMP3, LFT3, LIPA4, TROPN #### [place] [place] [address] Abs Neutrophile Cnt 10.3 10*3/uL High 1.8-7.0 [facility] Comment on above: Performed By: #### H EMDF, BMP3, LFT3, LIPA4, TROPN #### [address] Basophils/100 WBC (Bld) 0.5 % Normal 0.0-2.0 [facility] Comment on above: Performed By: #### H EMDF, BMP3, LFT3, LIPA4, TROPN #### [address] Eosinophils (Bld) [#/Vol] 0.2 10*3/uL Normal 0.0-0.5 [facility] Comment on above: Performed By: #### H EMDF, BMP3, LFT3, LIPA4, TROPN #### [address] Eosinophils/100 WBC (Bld) 1.2 % Normal 1.0-6.0 [facility] Comment on above: Performed By: #### H EMDF, BMP3, LFT3, LIPA4, TROPN #### [address] Erythrocyte distribution width (RBC) [Ratio] 12.7 % Normal 11.5-14.5 [facility] Comment on above: Performed By: #### H EMDF, BMP3, LFT3, LIPA4, TROPN #### [address] Granulocytes/100 WBC (Bld) 78.0 % Normal 40.0-80.0 [facility] Comment on above: Performed By: #### H EMDF, BMP3, LFT3, LIPA4, TROPN #### [address] Hematocrit (Bld) [Volume fraction] 32.8 % Low 35.0-47.0 [facility] Comment on above: Performed By: #### H EMDF, BMP3, LFT3, LIPA4, TROPN #### [address] [place], [place] Hemoglobin (Bld) [Mass/Vol] 11.3 g/dL Low 11.7-16.0 [facility] Comment on above: Performed By: #### H EMDF, BMP3, LFT3, LIPA4, TROPN #### [address] [address] [place] Lymphocytes (Bld) [#/Vol] 1.9 10*3/uL Normal 1.0-4.3 [facility] Comment on above: Performed By: #### H EMDF, BMP3, LFT3, LIPA4, TROPN #### [address] Lymphocytes/100 WBC (Bld) 14.8 % Low 20.0-40.0 [facility] Comment on above: Performed By: #### H EMDF, BMP3, LFT3, LIPA4, TROPN #### [address] MCH (RBC) [Entitic mass] 33.4 pg Normal 26.0-34.0 [facility] Comment on above: Performed By: #### H EMDF, BMP3, LFT3, LIPA4, TROPN #### [address] MCHC (RBC) [Mass/Vol] 34.3 % Normal 32.0-36.0 [facility] Comment on above: Performed By: #### H EMDF, BMP3, LFT3, LIPA4, TROPN #### [address] MCV (RBC) [Entitic vol] 97.3 fL Normal 79.0-98.0 [facility] Comment on above: Performed By: #### H EMDF, BMP3, LFT3, LIPA4, TROPN #### [address] Monocytes (Bld) [#/Vol] 0.7 10*3/uL Normal 0.0-0.8 [facility] Comment on above: Performed By: #### H EMDF, BMP3, LFT3, LIPA4, TROPN #### [address] [place], [place] Monocytes/100 WBC (Bld) 5.5 % Normal 2.0-10.0 [facility] Comment on above: Performed By: #### H EMDF, BMP3, LFT3, LIPA4, TROPN #### [address] [place], [place] Platelet mean volume (Bld) [Entitic vol] 10.6 fL High 7.4-10.4 [facility] Comment on above: Performed By: #### H EMDF, BMP3, LFT3, LIPA4, TROPN #### [address] [address] [place] Platelets (Bld) [#/Vol] 207 10*3/uL Normal 140-440 [facility] Comment on above: Performed By: #### H EMDF, BMP3, LFT3, LIPA4, TROPN #### [address] [place], [place] RBC (Bld) [#/Vol] 3.37 10*6/uL Low 3.80-5.20 [facility] Comment on above: Performed By: #### H EMDF, BMP3, LFT3, LIPA4, TROPN #### [address] [place], [place] WBC (Bld) [#/Vol] 13.1 10*3/uL High 3.6-10.7 [facility] Comment on above: Performed By: #### H EMDF, BMP3, LFT3, LIPA4, TROPN #### [address] Lipaseon 02-18-2019 Lipase [Catalytic activity/Vol] 211 U/L Normal 23-300 [facility] Comment on above: Performed By: #### H EMDF, BMP3, LFT3, LIPA4, TROPN #### [address] [address] LipaseOrdered By: Gustavo Muniz on 02-18-2019 Lipase [Catalytic activity/Vol] 211 U/L 23 - 300 U/L [facility] Work Phone: Test Performed by [facility], [address] [place] [address] [facility] Work Phone: Basic Metabolic Panelon 02-08 Calcium [Mass/Vol] 8.6 mg/dL Normal 8.4-10.4 [facility] Comment on above: Performed By: #### H EMDF, BMP3, LFT3, LIPA4, TROPN #### [address] Glucose [Mass/Vol] 125 mg/dL High 70-100 [facility] Comment on above: Performed By: #### H EMDF, BMP3, LFT3, LIPA4, TROPN #### [address] Urea nitrogen [Mass/Vol] 21 mg/dL High 7-20 [facility] Comment on above: Performed By: #### H EMDF, BMP3, LFT3, LIPA4, TROPN #### [address] Anion gap [Moles/Vol] 9 Normal [facility] Comment on above: Performed By: #### H EMDF, BMP3, LFT3, LIPA4, TROPN #### [address] CO2 [Moles/Vol] 24 mmol/L Normal 22-30 [facility] Comment on above: Performed By: #### H EMDF, BMP3, LFT3, LIPA4, TROPN #### [address] Creatinine [Mass/Vol] 0.81 mg/dL Normal 0.52-1.25 [facility] Comment on above: Performed By: #### H EMDF, BMP3, LFT3, LIPA4, TROPN #### [address] GFR/1.73 sq M predicted among blacks MDRD (S/P/Bld) [Vol rate/Area] mL/min/{1.73_m2} Normal >60 [facility] Comment on above: Performed By: #### H EMDF, BMP3, LFT3, LIPA4, TROPN #### [place] [place], [place] GFR/1.73 sq M predicted among non-blacks MDRD (S/P/Bld) [Vol rate/Area] mL/min/{1.73_m2} Normal >60 [facility] Comment on above: Result Comment: Sour ce- MDRD equation with creatinine calibration to IDMS(NKDEP) eGFR not recommended for drug dose adjustment Performed By: #### H EMDF, BMP3, LFT3, LIPA4, TROPN #### [address] [place], [place] Chloride [Moles/Vol] 106 mmol/L Normal 98-107 [facility] Comment on above: Performed By: #### H EMDF, BMP3, LFT3, LIPA4, TROPN #### [address] [place], [place] Potassium [Moles/Vol] 4.1 mmol/L Normal 3.5-5.1 [facility] Comment on above: Performed By: #### H EMDF, BMP3, LFT3, LIPA4, TROPN #### [address] [place], [place] Sodium [Moles/Vol] 139 mmol/L Normal 135-145 [facility] Comment on above: Performed By: #### H EMDF, BMP3, LFT3, LIPA4, TROPN #### [address] [address] [place] Basic Metabolic PanelOrdered By: Gustavo Muniz on 02-17-2019 Anion gap [Moles/Vol] 9 mmol/L [facility] Work Phone: Calcium [Mass/Vol] 8.6 mg/dL 8.4 - 10. 4 mg/dL [facility] Work Phone: [phone] Chloride [Moles/Vol] 106 mmol/L 98 - 10 7 mmol/L [facility] Work Phone: [phone] CO2 [Moles/Vol] 24 mmol/L 22 - 30 mmol/L [facility] Work Phone: [phone] Creatinine [Mass/Vol] 0.81 mg/dL 0.52 - 1.25 mg/dL [facility] Work Phone: [phone] EGFR IF NonAfrican Grenadian >60.0 >60 mL/min [facility] Work Phone: [phone] Comment on above: Source- MDRD equatio n with creatinine calibration to IDMS(NKDEP) eGFR not recommended for drug dose adjustment GFR/1.73 sq M.predicted among blacks MDRD (S/P/Bld) [Vol rate/Area] mL/min/{1.73_m2} >60 mL/min [facility] Work Phone: [phone] Glucose [Mass/Vol] 125 mg/dL High 70 - 100 mg/dL [facility] Work Phone: [phone] Potassium [Moles/Vol] 4.1 mmol/L 3.5 - 5.1 mmol/L [facility] Work Phone: [phone] Sodium [Moles/Vol] 139 mmol/L 135 - 145 mmol/L [facility] Work Phone: [phone] Urea nitrogen [Mass/Vol] 21 mg/dL High 7 - 20 mg/dL [facility] Work Phone: [phone] CBC Auto DifferentialOrdered By: Gustavo Muniz on 02-17-2019 Absolute Baso # 0.0 10*3/uL 0 - 0.2 10*3/uL [facility] Work Phone: [phone] Absolute Neut # 15.9 10*3/uL High 1.8 - 7 10*3/uL [facility] Work Phone: [phone] Basophils/100 WBC (Bld) 0.3 % 0 - 2 % [facility] Work Phone: [phone] Eosinophils (Bld) [#/Vol] 0.1 10*3/uL 0 - 0.5 10*3/uL [facility] Work Phone: [phone] Eosinophils/100 WBC (Bld) 0.5 % Low 1 - 6 % [facility] Work Phone: [phone] Erythrocyte distribution width (RBC) [Ratio] 12.6 % 11.5 - 14.5 % [address] [facility] Work Phone: [phone] 222 Granulocytes/100 WBC (Bld) 83.5 % High 40 - 80 % [address] [facility] Work Phone: [phone] Hematocrit (Bld) [Volume fraction] 34.3 % Low 35 - 47 % [address] [facility] Work Phone: [phone] 222 Hemoglobin (Bld) [Mass/Vol] 11.6 g/dL Low 11.7 - 16 g/dL [facility] Work Phone: [phone] Interpretation and review of laboratory results Abnormal [facility] Work Phone: [phone] Lymphocytes (Bld) [#/Vol] 1.7 10*3/uL 1 - 4.3 10*3/uL [facility] Work Phone: [phone] 222 Lymphocytes/100 WBC (Bld) 9.1 % Low 20 - 40 % [facility] Work Phone: [phone] 222 MCH (RBC) [Entitic mass] 32.7 pg 26 - 34 pg [facility] Work Phone: [phone] 222 MCHC 33.9 % 32 - 36 % [facility] Work Phone: [phone] 222 MCV (RBC) [Entitic vol] 96.5 fL 79 - 98 fL [facility] Work Phone: [phone]) 222 Monocytes (Bld) [#/Vol] 1.3 10*3/uL High 0 - 0.8 10*3/uL [facility] Work Phone: [phone]) 222 Monocytes/100 WBC (Bld) 6.6 % 2 - 10 % [address] [facility] Work Phone: [phone]) 222 Platelet mean volume (Bld) [Entitic vol] 10.3 fL 7.4 - 10.4 fL [address] [facility] Work Phone: [phone] 222 Platelets (Bld) [#/Vol] 244 10*3/uL 140 - 440 10*3/uL [facility] [employer] Work Phone: 1) 222 RBC (Bld) [#/Vol] 3.56 10*6/uL Low 3.8 - 5.2 10*6/uL [facility] Work Phone: WBC (Bld) [#/Vol] 19.0 10*3/uL High 3.6 - 10.7 10*3/uL [facility] Work Phone: Test Performed by [facility], [address] [place] [id number] [place] [address] Work Phone: Hemogram w/ [employer] 02-17 Abs Baso Cnt 0.0 10*3/uL Normal 0.0-0.2 [facility] Comment on above: Performed By: #### H EMDF, BMP3, LFT3, LIPA4, TROPN #### [address] [id number] Abs Neutrophile Cnt 15.9 10*3/uL High 1.8-7.0 [facility] Comment on above: Performed By: #### H EMDF, BMP3, LFT3, LIPA4, TROPN #### [address] [id number] Basophils/100 WBC (Bld) 0.3 % Normal 0.0-2.0 [facility] Comment on above: Performed By: #### H EMDF, BMP3, LFT3, LIPA4, TROPN #### [address] [address] Eosinophils (Bld) [#/Vol] 0.1 10*3/uL Normal 0.0-0.5 [facility] Comment on above: Performed By: #### H EMDF, BMP3, LFT3, LIPA4, TROPN #### [address] [address] Eosinophils/100 WBC (Bld) 0.5 % Low 1.0-6.0 [facility] Comment on above: Performed By: #### H EMDF, BMP3, LFT3, LIPA4, TROPN #### [address] [address] Erythrocyte distribution width (RBC) [Ratio] 12.6 % Normal 11.5-14.5 [facility] Comment on above: Performed By: #### H EMDF, BMP3, LFT3, LIPA4, TROPN #### [address] Granulocytes/100 WBC (Bld) 83.5 % High 40.0-80.0 [facility] Comment on above: Performed By: #### H EMDF, BMP3, LFT3, LIPA4, TROPN #### [address] [address] [place], [place] Hematocrit (Bld) [Volume fraction] 34.3 % Low 35.0-47.0 [facility] Comment on above: Performed By: #### H EMDF, BMP3, LFT3, LIPA4, TROPN #### [address] Hemoglobin (Bld) [Mass/Vol] 11.6 g/dL Low 11.7-16.0 [facility] Comment on above: Performed By: #### H EMDF, BMP3, LFT3, LIPA4, TROPN #### [address] Lymphocytes (Bld) [#/Vol] 1.7 10*3/uL Normal 1.0-4.3 [facility] Comment on above: Performed By: #### H EMDF, BMP3, LFT3, LIPA4, TROPN #### [address] Lymphocytes/100 WBC (Bld) 9.1 % Low 20.0-40.0 [facility] Comment on above: Performed By: #### H EMDF, BMP3, LFT3, LIPA4, TROPN #### [address] MCH (RBC) [Entitic mass] 32.7 pg Normal 26.0-34.0 [facility] Comment on above: Performed By: #### H EMDF, BMP3, LFT3, LIPA4, TROPN #### [address] [address] [place] MCHC (RBC) [Mass/Vol] 33.9 % Normal 32.0-36.0 [facility] Comment on above: Performed By: #### H EMDF, BMP3, LFT3, LIPA4, TROPN #### [address] MCV (RBC) [Entitic vol] 96.5 fL Normal 79.0-98.0 [facility] Comment on above: Performed By: #### H EMDF, BMP3, LFT3, LIPA4, TROPN #### [address] [address] [place] Monocytes (Bld) [#/Vol] 1.3 10*3/uL High 0.0-0.8 [facility] Comment on above: Performed By: #### H EMDF, BMP3, LFT3, LIPA4, TROPN #### [address] Monocytes/100 WBC (Bld) 6.6 % Normal 2.0-10.0 [facility] Comment on above: Performed By: #### H EMDF, BMP3, LFT3, LIPA4, TROPN #### [address] Platelet mean volume (Bld) [Entitic vol] 10.3 fL Normal 7.4-10.4 [facility] Comment on above: Performed By: #### H EMDF, BMP3, LFT3, LIPA4, TROPN #### [address] Platelets (Bld) [#/Vol] 244 10*3/uL Normal 140-440 [facility] Comment on above: Performed By: #### H EMDF, BMP3, LFT3, LIPA4, TROPN #### [address] RBC (Bld) [#/Vol] 3.56 10*6/uL Low 3.80-5.20 [facility] Comment on above: Performed By: #### H EMDF, BMP3, LFT3, LIPA4, TROPN #### [address] [address] [place], [place] WBC (Bld) [#/Vol] 19.0 10*3/uL High 3.6-10.7 [facility] Comment on above: Performed By: #### H EMDF, BMP3, LFT3, LIPA4, TROPN #### [address] [address] [place], [place] Hepatic Functionon 0 ALP [Catalytic activity/Vol] 75 U/L Normal 38-126 [facility] Comment on above: Performed By: #### H EMDF, BMP3, LFT3, LIPA4, TROPN #### [address] [address] [place], [place] ALT [Catalytic activity/Vol] 60 U/L Normal 13-69 [facility] Comment on above: Performed By: #### H EMDF, BMP3, LFT3, LIPA4, TROPN #### [address] [address] [place], [place] AST [Catalytic activity/Vol] 62 U/L High 15-46 [facility] Comment on above: Performed By: #### H EMDF, BMP3, LFT3, LIPA4, TROPN #### [address] [address] [place], [place] Bilirubin [Mass/Vol] 0.5 mg/dL Normal 0.2-1.3 [facility] Comment on above: Performed By: #### H EMDF, BMP3, LFT3, LIPA4, TROPN #### [address] [address] [place], [place] Bilirubin.direct [Mass/Vol] 0.0 mg/dL Normal 0.0-0.3 [facility] Comment on above: Performed By: #### H EMDF, BMP3, LFT3, LIPA4, TROPN #### [address] [address] [place], [place] Protein [Mass/Vol] 5.9 g/dL Low 6.3-8.2 [facility] Comment on above: Performed By: #### H EMDF, BMP3, LFT3, LIPA4, TROPN #### [employer] [address] [place], [place] Albumin [Mass/Vol] 3.2 g/dL Low 3.5-5.0 [facility] Comment on above: Performed By: #### H EMDF, BMP3, LFT3, LIPA4, TROPN #### [employer] [address] [place], [place] Hepatic Function PanelOrdere d By: Gustavo Muniz on 02-17-2019 Albumin [Mass/Vol] 3.2 g/dL Low 3.5 - 5 g/dL [facility] Work Phone: [phone] ALP [Catalytic activity/Vol] 75 U/L 38 - 126 U/L [facility] Work Phone: [phone] ALT [Catalytic activity/Vol] 60 U/L 13 - 69 U/L [facility] Work Phone: [phone] AST [Catalytic activity/Vol] 62 U/L High 15 - 46 U/L [facility] Work Phone: [phone] Bilirubin [Mass/Vol] 0.5 mg/dL 0.2 - 1 .3 mg/dL [facility] Work Phone: [phone] Bilirubin.indirect [Mass/Vol] 0.0 mg/dL 0 - 0.3 mg/dL [facility] Work Phone: [phone] Protein [Mass/Vol] 5.9 g/dL Low 6.3 - 8.2 g/dL [facility] Work Phone: [phone] Lipaseon 02-17-2019 Lipase [Catalytic activity/Vol] 586 U/L High 23-300 [facility] Comment on above: Performed By: #### H EMDF, BMP3, LFT3, LIPA4, TROPN #### [employer] [facility] [address] [place], [place] LipaseOrdered By: Gustavo Muniz on 02-17-2019 Lipase [Catalytic activity/Vol] 586 U/L High 23 - 300 U/L [facility] Work Phone: No Panel InformationOrdered By: Gustavo Muniz on 02-17-2019 Interpretation and review of laboratory results Abnormal [facility] Work Phone: Test Performed by [facility], [address] [place], [place] [id number] [place] [address] Work Phone: Basic Metabolic Panelon Calcium [Mass/Vol] 9.4 mg/dL Normal 8.4-10.4 [facility] Comment on above: Performed By: #### H EMDF, BMP3, LFT3, LIPA4, TROPN #### [address] [address] Glucose [Mass/Vol] 182 mg/dL High 70-100 [facility] Comment on above: Performed By: #### H EMDF, BMP3, LFT3, LIPA4, TROPN #### [address] [address] Urea nitrogen [Mass/Vol] 13 mg/dL Normal 7-20 [facility] Comment on above: Performed By: #### H EMDF, BMP3, LFT3, LIPA4, TROPN #### [address] [address] [place] Anion gap [Moles/Vol] 11 Normal [facility] Comment on above: Performed By: #### H EMDF, BMP3, LFT3, LIPA4, TROPN #### [address] [address] CO2 [Moles/Vol] 25 mmol/L Normal 22-30 [facility] Comment on above: Performed By: #### H EMDF, BMP3, LFT3, LIPA4, TROPN #### [address] [address] [place] Creatinine [Mass/Vol] 0.74 mg/dL Normal 0.52-1.25 [facility] Comment on above: Performed By: #### H EMDF, BMP3, LFT3, LIPA4, TROPN #### [address] [address] [place] GFR/1.73 sq M predicted among blacks MDRD (S/P/Bld) [Vol rate/Area] mL/min/{1.73_m2} Normal >60 [facility] Comment on above: Performed By: #### H EMDF, BMP3, LFT3, LIPA4, TROPN #### [address] GFR/1.73 sq M predicted among non-blacks MDRD (S/P/Bld) [Vol rate/Area] mL/min/{1.73_m2} Normal >60 [facility] Comment on above: Result Comment: Sour ce- MDRD equation with creatinine calibration to IDMS(NKDEP) eGFR not recommended for drug dose adjustment Performed By: #### H EMDF, BMP3, LFT3, LIPA4, TROPN #### [address] Potassium [Moles/Vol] 4.2 mmol/L Normal 3.5-5.1 [facility] Comment on above: Performed By: #### H EMDF, BMP3, LFT3, LIPA4, TROPN #### [address] Sodium [Moles/Vol] 140 mmol/L Normal 135-145 [facility] Comment on above: Performed By: #### H EMDF, BMP3, LFT3, LIPA4, TROPN #### [address] Chloride [Moles/Vol] 105 mmol/L Normal 98-107 [facility] Comment on above: Performed By: #### H EMDF, BMP3, LFT3, LIPA4, TROPN #### [address] Basic Metabolic PanelOrdered By: Sharmila Lr on 02-16-2019 Anion gap [Moles/Vol] 11 mmol/L [facility] Work Phone: Calcium [Mass/Vol] 9.4 mg/dL 8.4 - 10. 4 mg/dL [facility] Work Phone: Chloride [Moles/Vol] 105 mmol/L 98 - 10 7 mmol/L [facility] Work Phone: CO2 [Moles/Vol] 25 mmol/L 22 - 30 mmol/L [facility] Work Phone: Creatinine [Mass/Vol] 0.74 mg/dL 0.52 - 1.25 mg/dL [facility] Work Phone: EGFR IF NonAfrican Grenadian >60.0 >60 mL/min [facility] Work Phone: Comment [...] 135 - 145 mmol/L [facility] Work Phone: Urea nitrogen [Mass/Vol] 13 mg/dL [...] [facility] Work Phone: MCV (RBC) [Entitic vol] 97.2 fL 79 - 98 fL [facility] Work Phone: Platelet mean volume (Bld) [Entitic vol] 10.1 fL 7.4 - 10.4 fL [facility] Work Phone: Platelets (Bld) [#/Vol] 210 10*3/uL 140 - 440 10*3/uL [facility] Work Phone: [phone] RBC (Bld) [#/Vol] 3.84 10*6/uL 3.8 - 5.2 10*6/uL [facility] Work Phone: WBC (Bld) [#/Vol] 22.3 10*3/uL High 3.6 - 10.7 10*3/uL [facility] Work Phone: Test Performed by [facility], [address] [place] [id number] [place], [place] [address] Work Phone: Hemogram w/ [employer] 02-16 Erythrocyte distribution width (RBC) [Ratio] 12.3 % Normal 11.5-14.5 [facility] Comment on above: Performed By: #### H EMDF, BMP3, LFT3, LIPA4, TROPN #### [facility] [employer] [address] Hematocrit (Bld) [Volume fraction] 37.3 % Normal 35.0-47.0 [facility] Comment on above: Performed By: #### H EMDF, BMP3, LFT3, LIPA4, TROPN #### [facility] [employer] [address] [place] [address] Hemoglobin (Bld) [Mass/Vol] 12.6 g/dL Normal 11.7-16.0 [facility] Comment on above: Performed By: #### H EMDF, BMP3, LFT3, LIPA4, TROPN #### [facility] [employer] [address] [place] [address] MCH (RBC) [Entitic mass] 32.8 pg Normal 26.0-34.0 [facility] Comment on above: Performed By: #### H EMDF, BMP3, LFT3, LIPA4, TROPN #### [address] [address] [place], [place] MCHC (RBC) [Mass/Vol] 33.8 % Normal 32.0-36.0 [facility] Comment on above: Performed By: #### H EMDF, BMP3, LFT3, LIPA4, TROPN #### [address] [address] [place] MCV (RBC) [Entitic vol] 97.2 fL Normal 79.0-98.0 [facility] Comment on above: Performed By: #### H EMDF, BMP3, LFT3, LIPA4, TROPN #### [address] [address] [place] Platelet mean volume (Bld) [Entitic vol] 10.1 fL Normal 7.4-10.4 [facility] Comment on above: Performed By: #### H EMDF, BMP3, LFT3, LIPA4, TROPN #### [address] [address] [place], [place] Platelets (Bld) [#/Vol] 210 10*3/uL Normal 140-440 [facility] Comment on above: Performed By: #### H EMDF, BMP3, LFT3, LIPA4, TROPN #### [address] [address] [place] RBC (Bld) [#/Vol] 3.84 10*6/uL Normal 3.80-5.20 [facility] Comment on above: Performed By: #### H EMDF, BMP3, LFT3, LIPA4, TROPN #### [address] [address] [place], [place] WBC (Bld) [#/Vol] 22.3 10*3/uL High 3.6-10.7 [facility] Comment on above: Performed By: #### H EMDF, BMP3, LFT3, LIPA4, TROPN #### [address] [address] [place] Hepatic Functionon 0 ALP [Catalytic activity/Vol] 83 U/L Normal 38-126 [facility] Comment on above: Performed By: #### H EMDF, BMP3, LFT3, LIPA4, TROPN #### [facility] [address] [place], [place] ALT [Catalytic activity/Vol] 81 U/L High 13-69 [facility] Comment on above: Performed By: #### H EMDF, BMP3, LFT3, LIPA4, TROPN #### [address] [address] [place], [place] AST [Catalytic activity/Vol] 100 U/L High 15-46 [facility] Comment on above: Performed By: #### H EMDF, BMP3, LFT3, LIPA4, TROPN #### [address] [address] [place] Bilirubin [Mass/Vol] 0.5 mg/dL Normal 0.2-1.3 [facility] Comment on above: Performed By: #### H EMDF, BMP3, LFT3, LIPA4, TROPN #### [address] [address] [place], [place] Protein [Mass/Vol] 6.7 g/dL Normal 6.3-8.2 [facility] Comment on above: Performed By: #### H EMDF, BMP3, LFT3, LIPA4, TROPN #### [address] [address] [place], [place] Bilirubin.direct [Mass/Vol] 0.0 mg/dL Normal 0.0-0.3 [facility] Comment on above: Performed By: #### H EMDF, BMP3, LFT3, LIPA4, TROPN #### [address] [address] [place] Albumin [Mass/Vol] 3.9 g/dL Normal 3.5-5.0 [facility] Comment on above: Performed By: #### H EMDF, BMP3, LFT3, LIPA4, TROPN #### [address] [address] [place], [place] Hepatic Function PanelOrdere d By: Sharmila Lr on 02-16-2019 Albumin [Mass/Vol] 3.9 g/dL 3.5 - 5 g/dL [facility] Work Phone: ALP [Catalytic activity/Vol] 83 U/L 38 - 126 U/L [facility] Work Phone: ALT [Catalytic activity/Vol] 81 U/L High 13 - 69 U/L [facility] Work Phone: AST [Catalytic activity/Vol] 100 U/L High 15 - 46 U/L [facility] Work Phone: Bilirubin [Mass/Vol] 0.5 mg/dL 0.2 - 1 .3 mg/dL [facility] Work Phone: [phone] Bilirubin.indirect [Mass/Vol] 0.0 mg/dL 0 - 0.3 mg/dL [facility] Work Phone: Protein [Mass/Vol] 6.7 g/dL 6.3 - 8.2 g/dL [facility] Work Phone: Lipaseon 02-16-2019 Lipase [Catalytic activity/Vol] 1101 U/L High 23-300 [facility] Comment on above: Performed By: #### H EMDF, BMP3, LFT3, LIPA4, TROPN #### [address] [address] LipaseOrdered By: Gustavo Muniz on 02-16-2019 Interpretation and review of laboratory results Abnormal [facility] Work Phone: Lipase [Catalytic activity/Vol] 1101 U/L High 23 - 300 U/L [facility] Work Phone: Test Performed by [facility], [address] [place] [address] [facility] Work Phone: Manual Diffon 02-16-2019 Abs Lymph Cnt 0.9 10*3/uL Low 1.1-4.5 [facility] Comment on above: Performed By: #### H EMDF, BMP3, LFT3, LIPA4, TROPN #### [address] [address] Abs Monocyte Cnt 0.9 10*3/uL Normal 0.2-1.1 [facility] Comment on above: Performed By: #### H EMDF, BMP3, LFT3, LIPA4, TROPN #### [address] Abs Neutrophile Cnt 20.5 10*3/uL High 2.2-8.2 [facility] Comment on above: Performed By: #### H EMDF, BMP3, LFT3, LIPA4, TROPN #### [facility] [address] [place], [place] Bands 15 % High 0-3 [facility] Comment on above: Performed By: #### H EMDF, BMP3, LFT3, LIPA4, TROPN #### [address] Lymphocytes 4 % Low 20-40 [facility] Comment on above: Performed By: #### H EMDF, BMP3, LFT3, LIPA4, TROPN #### [address] Monocytes 4 % Normal 2-10 [facility] Comment on above: Performed By: #### H EMDF, BMP3, LFT3, LIPA4, TROPN #### [address] RBC morphology finding Nom (Bld) Normal Normal [facility] Comment on above: Performed By: #### H EMDF, BMP3, LFT3, LIPA4, TROPN #### [address] Seg Neutrophils 77 % Normal 40-80 [facility] Comment on above: Performed By: #### H EMDF, BMP3, LFT3, LIPA4, TROPN #### [address] Abs Baso Cnt 0.0 10*3/uL Normal 0.0-0.2 [facility] Comment on above: Performed By: #### H EMDF, BMP3, LFT3, LIPA4, TROPN #### [address] Abs Eosin Cnt 0.0 10*3/uL Normal 0.0-0.5 [facility] Comment on above: Performed By: #### H EMDF, BMP3, LFT3, LIPA4, TROPN #### [facility] [address] [place], [place] Basophils 0 % Normal 0-2 [facility] Comment on above: Performed By: #### H EMDF, BMP3, LFT3, LIPA4, TROPN #### [facility] [address] [place], [place] Cells counted 100 Normal [facility] Comment on above: Performed By: #### H EMDF, BMP3, LFT3, LIPA4, TROPN #### [facility] [address] [place], [place] Eosinophils 0 % Low 1-6 [facility] Comment on above: Performed By: #### H EMDF, BMP3, LFT3, LIPA4, TROPN #### [facility] [address] [place], [place] Manual DifferentialOrdered B y: Lisa Smiley on 02-16-2019 Absolute Baso # 0.0 10*3/uL 0 - 0.2 10*3/uL [facility] Work Phone: [phone] Absolute Eos # 0.0 10*3/uL 0 - 0.5 10*3/uL [facility] Work Phone: [phone] Absolute Lymph # 0.9 10*3/uL Low 1.1 - 4.5 10*3/uL [facility] Work Phone: [phone] Absolute [place] # 0.9 10*3/uL 0.2 - 1.1 10*3/uL [facility] Work Phone: [phone] Absolute Neut # 20.5 10*3/uL High 2.2 - 8.2 10*3/uL [facility] Work Phone: [phone] Bands 15 % High 0 - 3 % [facility] Work Phone: [phone] Basophils 0 % 0 - 2 % [facility] Work Phone: [phone] Eosinophils 0 % Low 1 - 6 % [facility] Work Phone: [phone] Interpretation and review of laboratory results Abnormal [facility] Work Phone: Lymphocytes 4 % Low 20 - 40 % [facility] Work Phone: [phone] Monocytes 4 % 2 - 10 % [facility] Work Phone: RBC Morphology Normal [facility] Work Phone: Seg Neutrophils 77 % 40 - 80 % [facility] Work Phone: [phone] TOTAL CELLS COUNTED 100 [facility] Work Phone: [phone] Test Performed by [facility], [facility] [place] [address] [facility] Work Phone: [phone] Panel InformationOrdered By: Sharmila Lr on 02-16-2019 Interpretation and review of laboratory results Abnormal [facility] Work Phone: [phone] Test Performed by [facility], [address] [place] [address] [facility] Work Phone: Basic Metabolic Panelon Calcium [Mass/Vol] 9.6 mg/dL Normal 8.4-10.4 [facility] Comment on above: Performed By: #### H EMDF, BMP3, LFT3, LIPA4, TROPN #### [address] [address] Glucose [Mass/Vol] 110 mg/dL High 70-100 [facility] Comment on above: Performed By: #### H EMDF, BMP3, LFT3, LIPA4, TROPN #### [address] [address] [place] [address] Urea nitrogen [Mass/Vol] 10 mg/dL Normal 7-20 [facility] Comment on above: Performed By: #### H EMDF, BMP3, LFT3, LIPA4, TROPN #### [address] [address] Anion gap [Moles/Vol] 8 Normal [facility] Comment on above: Performed By: #### H EMDF, BMP3, LFT3, LIPA4, TROPN #### [address] [address] [place] [address] CO2 [Moles/Vol] 28 mmol/L Normal 22-30 [facility] Comment on above: Performed By: #### H EMDF, BMP3, LFT3, LIPA4, TROPN #### [address] Creatinine [Mass/Vol] 0.87 mg/dL Normal 0.52-1.25 [facility] Comment on above: Performed By: #### H EMDF, BMP3, LFT3, LIPA4, TROPN #### [address] GFR/1.73 sq M predicted among blacks MDRD (S/P/Bld) [Vol rate/Area] mL/min/{1.73_m2} Normal >60 [facility] Comment on above: Performed By: #### H EMDF, BMP3, LFT3, LIPA4, TROPN #### [address] [address] [place] GFR/1.73 sq M predicted among non-blacks MDRD (S/P/Bld) [Vol rate/Area] mL/min/{1.73_m2} Normal >60 [facility] Comment on above: Result Comment: Sour ce- MDRD equation with creatinine calibration to IDMS(NKDEP) eGFR not recommended for drug dose adjustment Performed By: #### H EMDF, BMP3, LFT3, LIPA4, TROPN #### [address] Chloride [Moles/Vol] 104 mmol/L Normal 98-107 [facility] Comment on above: Performed By: #### H EMDF, BMP3, LFT3, LIPA4, TROPN #### [address] Potassium [Moles/Vol] 4.0 mmol/L Normal 3.5-5.1 [facility] Comment on above: Performed By: #### H EMDF, BMP3, LFT3, LIPA4, TROPN #### [address] [address] [place] Sodium [Moles/Vol] 141 mmol/L Normal 135-145 [facility] Comment on above: Performed By: #### H EMDF, BMP3, LFT3, LIPA4, TROPN #### [facility] [employer] [facility] [address] [place] [address] Basic Metabolic PanelOrdered By: Mark Chen on 02-15-2019 Anion gap [Moles/Vol] 8 mmol/L [facility] Work Phone: [phone] Calcium [Mass/Vol] 9.6 mg/dL 8.4 - 10. 4 mg/dL [facility] Work Phone: [phone] Chloride [Moles/Vol] 104 mmol/L 98 - 10 7 mmol/L [facility] Work Phone: [phone] CO2 [Moles/Vol] 28 mmol/L 22 - 30 mmol/L [facility] Work Phone: [phone] Creatinine [Mass/Vol] 0.87 mg/dL 0.52 - 1.25 mg/dL [facility] Work Phone: [phone] EGFR IF NonAfrican Grenadian >60.0 >60 mL/min [facility] Work Phone: [phone] Comment on above: Source- MDRD equatio n with creatinine calibration to IDMS(NKDEP) eGFR not recommended for drug dose adjustment GFR/1.73 sq M.predicted among blacks MDRD (S/P/Bld) [Vol rate/Area] mL/min/{1.73_m2} >60 mL/min [facility] Work Phone: [phone] Glucose [Mass/Vol] 110 mg/dL High 70 - 100 mg/dL [facility] Work Phone: [phone] Potassium [Moles/Vol] 4.0 mmol/L 3.5 - 5.1 mmol/L [facility] Work Phone: [phone] Sodium [Moles/Vol] 141 mmol/L 135 - 145 mmol/L [facility] Work Phone: [phone] Urea nitrogen [Mass/Vol] 10 mg/dL 7 - 20 mg/dL [facility] Work Phone: [phone] CBC Auto DifferentialOrdered By: Mark Chen on 02-15-2019 Absolute Baso # 0.1 10*3/uL 0 - 0.2 10*3/uL [facility] Work Phone: [phone] Absolute Neut # 5.0 10*3/uL 1.8 [...] Phone: [phone] MCH (RBC) [Entitic mass] 32.9 pg 26 - 34 pg [facility] Work Phone: [phone] MCHC 34.8 % 32 - 36 % [facility] Work Phone: [phone] MCV (RBC) [Entitic vol] 94.4 fL 79 - 98 fL [facility] Work Phone: [phone] Monocytes (Bld) [#/Vol] 0.5 10*3/uL 0 - 0.8 10*3/uL [facility] Work Phone: [phone] Monocytes/100 WBC (Bld) 7.0 % 2 - 10 % [facility] Work Phone: [phone] Platelet mean volume (Bld) [Entitic vol] 10.3 fL 7.4 - 10.4 fL [facility] Work Phone: Platelets (Bld) [#/Vol] 223 10*3/uL 140 - 440 10*3/uL [facility] Work Phone: RBC (Bld) [#/Vol] 3.88 10*6/uL 3.8 - 5.2 10*6/uL [facility] Work Phone: WBC (Bld) [#/Vol] 7.4 10*3/uL 3.6 - 10.7 10*3/uL [facility] Work Phone: Test Performed by [address] [address] [facility] Work Phone: [phone] FL ERCP BILIARY AND PANCREAT IC S&IOrdered By: Lisa Smiley on 02-15-2019 Patient Name: RICARDO VILLALPANDO ---Fluoroscopy--- Exam Date/Time 02/15/2019 08:51:55 EST Exam RF ERCP Biliary and Pancreatic Duct Ordering Physician [id number] LISA RODRIGEZ Accession Number [id number] CTP4 Codes 04127 () Reason For Exam cbd stones Report [...] JEFFREY Transcribed Date and Time: 02/15/2019 8:39 [facility] Work Phone: [facility], [facility] Incoming Radiology Results From [facility] - 02/15/2019 8:52 AM EST Patient Name: RICARDO VILLALPANDO ---Fluoroscopy--- Exam Date/Time 02/15/2019 08:51:55 EST Exam RF ERCP Biliary and Pancreatic Duct Ordering Physician LISA RICH Accession Number [id number] [facility]4 Codes 41815 () Reason For Exam cbd stones Report [...] JEFFREY Transcribed Date and Time: 02/15/2019 8:39 [facility] Work Phone: Hemogram w/ [employer] 02-15 Abs Baso Cnt 0.1 10*3/uL Normal 0.0-0.2 [facility] Comment on above: Performed By: #### H EMDF, BMP3, LFT3, LIPA4, TROPN #### [facility] [employer] [address] [place] [id number] Abs Neutrophile Cnt 5.0 10*3/uL Normal 1.8-7.0 [facility] [employer] Comment on above: Performed By: #### H EMDF, BMP3, LFT3, LIPA4, TROPN #### [address] Basophils/100 WBC (Bld) 0.9 % Normal 0.0-2.0 [facility] Comment on above: Performed By: #### H EMDF, BMP3, LFT3, LIPA4, TROPN #### [address] Eosinophils (Bld) [#/Vol] 0.2 10*3/uL Normal 0.0-0.5 [facility] Comment on above: Performed By: #### H EMDF, BMP3, LFT3, LIPA4, TROPN #### [address] Eosinophils/100 WBC (Bld) 3.0 % Normal 1.0-6.0 [facility] Comment on above: Performed By: #### H EMDF, BMP3, LFT3, LIPA4, TROPN #### [address] Erythrocyte distribution width (RBC) [Ratio] 12.1 % Normal 11.5-14.5 [facility] Comment on above: Performed By: #### H EMDF, BMP3, LFT3, LIPA4, TROPN #### [address] Granulocytes/100 WBC (Bld) 67.7 % Normal 40.0-80.0 [facility] Comment on above: Performed By: #### H EMDF, BMP3, LFT3, LIPA4, TROPN #### [address] Hematocrit (Bld) [Volume fraction] 36.6 % Normal 35.0-47.0 [facility] Comment on above: Performed By: #### H EMDF, BMP3, LFT3, LIPA4, TROPN #### [address] Hemoglobin (Bld) [Mass/Vol] 12.8 g/dL Normal 11.7-16.0 [facility] Comment on above: Performed By: #### H EMDF, BMP3, LFT3, LIPA4, TROPN #### [address] [address] [address] [place], [place] Lymphocytes (Bld) [#/Vol] 1.6 10*3/uL Normal 1.0-4.3 [facility] Comment on above: Performed By: #### H EMDF, BMP3, LFT3, LIPA4, TROPN #### [address] [address] [place], [place] Lymphocytes/100 WBC (Bld) 21.4 % Normal 20.0-40.0 [facility] Comment on above: Performed By: #### H EMDF, BMP3, LFT3, LIPA4, TROPN #### [address] MCH (RBC) [Entitic mass] 32.9 pg Normal 26.0-34.0 [facility] Comment on above: Performed By: #### H EMDF, BMP3, LFT3, LIPA4, TROPN #### [address] MCHC (RBC) [Mass/Vol] 34.8 % Normal 32.0-36.0 [facility] Comment on above: Performed By: #### H EMDF, BMP3, LFT3, LIPA4, TROPN #### [address] MCV (RBC) [Entitic vol] 94.4 fL Normal 79.0-98.0 [facility] Comment on above: Performed By: #### H EMDF, BMP3, LFT3, LIPA4, TROPN #### [address] Monocytes (Bld) [#/Vol] 0.5 10*3/uL Normal 0.0-0.8 [facility] Comment on above: Performed By: #### H EMDF, BMP3, LFT3, LIPA4, TROPN #### [address] Monocytes/100 WBC (Bld) 7.0 % Normal 2.0-10.0 [facility] Comment on above: Performed By: #### H EMDF, BMP3, LFT3, LIPA4, TROPN #### [address] [address] [address] [place], [place] Platelet mean volume (Bld) [Entitic vol] 10.3 fL Normal 7.4-10.4 [facility] Comment on above: Performed By: #### H EMDF, BMP3, LFT3, LIPA4, TROPN #### [address] [address] [address] [place], [place] Platelets (Bld) [#/Vol] 223 10*3/uL Normal 140-440 [facility] Comment on above: Performed By: #### H EMDF, BMP3, LFT3, LIPA4, TROPN #### [address] RBC (Bld) [#/Vol] 3.88 10*6/uL Normal 3.80-5.20 [facility] Comment on above: Performed By: #### H EMDF, BMP3, LFT3, LIPA4, TROPN #### [address] [address] [address] [place], [place] WBC (Bld) [#/Vol] 7.4 10*3/uL Normal 3.6-10.7 [facility] Comment on above: Performed By: #### H EMDF, BMP3, LFT3, LIPA4, TROPN #### [address] [address] [address] [place], [place] Hepatic Functionon 0 ALP [Catalytic activity/Vol] 94 U/L Normal 38-126 [facility] Comment on above: Performed By: #### H EMDF, BMP3, LFT3, LIPA4, TROPN #### [address] [place], [place] ALT [Catalytic activity/Vol] 76 U/L High 13-69 [facility] Comment on above: Performed By: #### H EMDF, BMP3, LFT3, LIPA4, TROPN #### [address] [address] [place], [place] AST [Catalytic activity/Vol] 80 U/L High 15-46 [facility] Comment on above: Performed By: #### H EMDF, BMP3, LFT3, LIPA4, TROPN #### [facility] [address] [place], [place] Bilirubin [Mass/Vol] 0.6 mg/dL Normal 0.2-1.3 [facility] Comment on above: Performed By: #### H EMDF, BMP3, LFT3, LIPA4, TROPN #### [address] [address] [address] [place], [place] Protein [Mass/Vol] 7.0 g/dL Normal 6.3-8.2 [facility] Comment on above: Performed By: #### H EMDF, BMP3, LFT3, LIPA4, TROPN #### [address] [address] [place] Bilirubin.direct [Mass/Vol] 0.0 mg/dL Normal 0.0-0.3 [facility] Comment on above: Performed By: #### H EMDF, BMP3, LFT3, LIPA4, TROPN #### [address] [address] [address] [place], [place] Albumin [Mass/Vol] 3.7 g/dL Normal 3.5-5.0 [facility] Comment on above: Performed By: #### H EMDF, BMP3, LFT3, LIPA4, TROPN #### [address] [address] [address] [place], [place] Hepatic Function PanelOrdere d By: Sharmila Lr on 02-15-2019 Albumin [Mass/Vol] 3.7 g/dL 3.5 - 5 g/dL [facility] Work Phone: ALP [Catalytic activity/Vol] 94 U/L 38 - 126 U/L [facility] Work Phone: ALT [Catalytic activity/Vol] 76 U/L High 13 - 69 U/L [facility] Work Phone: AST [Catalytic activity/Vol] 80 U/L High 15 - 46 U/L [facility] Work Phone: Bilirubin [Mass/Vol] 0.6 mg/dL 0.2 - 1 .3 mg/dL [facility] Work Phone: Bilirubin.indirect [Mass/Vol] 0.0 mg/dL 0 - 0.3 mg/dL [facility] Work Phone: Protein [Mass/Vol] 7.0 g/dL 6.3 - 8.2 g/dL [facility] Work Phone: No Panel InformationOrdered By: Mark Chen on 02-15-2019 Interpretation and review of laboratory results Abnormal [facility] Work Phone: Test Performed by [id number] [place] [address] Work Phone: RF ERCP Biliary and Pancreat ic Ducton 02-15-2019 RF ERCP Biliary and Pancreatic Duct Patient Name: RICARDO VILLALPANDO Fluoroscopy Exam Date/Time 02/15/2019 08:51:55 EST Exam RF ERCP Biliary and Pancreatic Duct Ordering Physician [id number] OBRIEN Accession Number [id number] CTP4 Codes 58999 () Reason For Exam cbd stones Report [...] Transcribed Date and Time: 02/15/2019 8:39 Normal [facility] Surgical Pathologyon 020 Surgical Pathology [id number] [facility] PATHOLOGY AND LABORATORY MEDICINE [address] [facility] [place] [address] FINAL SURGICAL PATHOLOGY REPORT NAME: KWASIRICARDO VELAZQUEZ Jerilyn : 1940 78 Y F BILLING NO.: [id number] LOCATION: [facility] 5125 [id number] PROCEDURE 02/15/2019 DATE: SURGEON: OSMAR ANDERSON M.D. RECEIVED 02/16/2019 DATE: ATTENDING: GUSTAVO MUNIZ MD REPORT DATE: 02/21/2019 COPIES TO: DIAGNOSIS: GALLBLADDER, CHOLECYSTECTOMY - CHRONIC CHOLECYSTITIS CHOLELITHIASIS T/0RW Signature> S DIMITRIS IRVING M.D. CLINICAL INFORMATION: [...] are identified impacted within the cystic duct. Scale Mechanic sections are submitted in a single cassette. (bits ss, 1) MAUREENK/TRELL Disclaimer: The following statement applies to all immunohistochemistry, in situ hybridization, molecular studies, and immunofluorescence testing. The use of one or more reagents in the above tests is regulated as an analyte specific reagent (ASR). These tests were developed and their performance characteristics determined by the clinical laboratories of [facility]. They have not been cleared by [...] negativity on decalcified specimens. Professional Performing Location: [address] [address]. DEPARTMENT OF PATHOLOGY AND LABORATORY MEDICINE [place], [place] [address] Normal [facility] TS GELon 02-15-2019 TS GEL ABO Group: O Rh, Gel: POS Antibody Screen Gel: NEG Normal [facility] Comment on above: Performed By: #### H EMDF, BMP3, LFT3, LIPA4, TROPN #### [address] [address] TYPE AND SCREENOrdered By: Tyrone Chen on 02-15-2019 ABO Grouping O [facility] Work Phone: Rh Type Positive [facility] Work Phone: Comment on above: Test Performed by [facility], [address] [place] [id number] Test Performed by [facility], [address] [place] [id number] [place] [address] Work Phone: Potassiumon 02-14-2019 Potassium [Moles/Vol] 3.8 mmol/L Normal 3.5-5.1 [facility] Comment on above: Performed By: #### H EMDF, BMP3, LFT3, LIPA4, TROPN #### [address] [address] [place] [address] PotassiumOrdered By: Luciano Muniz on 02-14-2019 Potassium [Moles/Vol] 3.8 mmol/L 3.5 - 5.1 mmol/L [facility] Work Phone: Test Performed by [facility], [address] [place] [address] [facility] Work Phone: Basic Metabolic Panelon Anion gap [Moles/Vol] 7 Normal [facility] Comment on above: Performed By: #### H EMDF, BMP3, LFT3, LIPA4, TROPN #### [address] Calcium [Mass/Vol] 9.0 mg/dL Normal 8.4-10.4 [facility] Comment on above: Performed By: #### H EMDF, BMP3, LFT3, LIPA4, TROPN #### [address] [address] [place] CO2 [Moles/Vol] 26 mmol/L Normal 22-30 [facility] Comment on above: Performed By: #### H EMDF, BMP3, LFT3, LIPA4, TROPN #### [address] [address] [address] [place], [place] Glucose [Mass/Vol] 93 mg/dL Normal 70-100 [facility] Comment on above: Performed By: #### H EMDF, BMP3, LFT3, LIPA4, TROPN #### [address] [address] [place] [address] Urea nitrogen [Mass/Vol] 6 mg/dL Low 7-20 [facility] Comment on above: Performed By: #### H EMDF, BMP3, LFT3, LIPA4, TROPN #### [address] Creatinine [Mass/Vol] 0.68 mg/dL Normal 0.52-1.25 [facility] Comment on above: Performed By: #### H EMDF, BMP3, LFT3, LIPA4, TROPN #### [address] GFR/1.73 sq M predicted among blacks MDRD (S/P/Bld) [Vol rate/Area] mL/min/{1.73_m2} Normal >60 [facility] Comment on above: Performed By: #### H EMDF, BMP3, LFT3, LIPA4, TROPN #### [address] GFR/1.73 sq M predicted among non-blacks MDRD (S/P/Bld) [Vol rate/Area] mL/min/{1.73_m2} Normal >60 [facility] Comment on above: Result Comment: Sour ce- MDRD equation with creatinine calibration to IDMS(NKDEP) eGFR not recommended for drug dose adjustment Performed By: #### H EMDF, BMP3, LFT3, LIPA4, TROPN #### [address] Chloride [Moles/Vol] 108 mmol/L High 98-107 [facility] Comment on above: Performed By: #### H EMDF, BMP3, LFT3, LIPA4, TROPN #### [address] Potassium [Moles/Vol] 3.4 mmol/L Low 3.5-5.1 [facility] Comment on above: Performed By: #### H EMDF, BMP3, LFT3, LIPA4, TROPN #### [address] Sodium [Moles/Vol] 142 mmol/L Normal 135-145 [facility] Comment on above: Performed By: #### H EMDF, BMP3, LFT3, LIPA4, TROPN #### [address] [address] Basic Metabolic Panel w/ Ref tere to MGOrdered By: Gem Lowery on 02-13-2019 Anion gap [Moles/Vol] 7 mmol/L [facility] Work Phone: [phone] Calcium [Mass/Vol] 9.0 mg/dL 8.4 - 10. 4 mg/dL [facility] Work Phone: [phone] Chloride [Moles/Vol] 108 mmol/L High 98 - 10 7 mmol/L [facility] Work Phone: [phone] CO2 [Moles/Vol] 26 mmol/L 22 - 30 mmol/L [facility] Work Phone: [phone] Creatinine [Mass/Vol] 0.68 mg/dL 0.52 - 1.25 mg/dL [facility] Work Phone: [phone] EGFR IF NonAfrican Grenadian >60.0 >60 mL/min [facility] Work Phone: [phone] Comment on above: Source- MDRD equatio n with creatinine calibration to IDMS(NKDEP) eGFR not recommended for drug dose adjustment GFR/1.73 sq M.predicted among blacks MDRD (S/P/Bld) [Vol rate/Area] mL/min/{1.73_m2} >60 mL/min [facility] Work Phone: [phone] Glucose [Mass/Vol] 93 mg/dL 70 - 100 mg/dL [facility] Work Phone: [phone] Potassium [Moles/Vol] 3.4 mmol/L Low 3.5 - 5.1 mmol/L [facility] Work Phone: [phone] Sodium [Moles/Vol] 142 mmol/L 135 - 145 mmol/L [facility] Work Phone: [phone] Urea nitrogen [Mass/Vol] 6 mg/dL Low 7 - 20 mg/dL [facility] Work Phone: [phone] CBC Auto DifferentialOrdered By: Gem Lowery on 02-13-2019 Absolute Baso # 0.1 10*3/uL 0 - 0.2 10*3/uL [facility] Work Phone: [phone] Absolute Neut # 3.9 10*3/uL 1.8 - 7 10*3/uL [facility] Work Phone: [phone] Basophils/100 WBC (Bld) 1.1 % 0 - 2 % [facility] Work Phone: [phone] Eosinophils (Bld) [#/Vol] 0.2 10*3/uL 0 - 0.5 10*3/uL [facility] Work Phone: [phone] Eosinophils/100 WBC (Bld) 3.4 % 1 - 6 % [facility] Work Phone: [phone] Erythrocyte distribution width (RBC) [Ratio] 12.3 % 11.5 - 14.5 % [facility] Work Phone: [phone] Granulocytes/100 WBC (Bld) 68.3 % 40 - 80 % [facility] Work Phone: [phone] Hematocrit (Bld) [Volume fraction] 32.8 % Low 35 - 47 % [facility] Work Phone: [phone] Hemoglobin (Bld) [Mass/Vol] 11.6 g/dL Low 11.7 - 16 g/dL [facility] Work Phone: [phone] Interpretation and review of laboratory results Abnormal [facility] Work Phone: [phone] Lymphocytes (Bld) [#/Vol] 1.1 10*3/uL 1 - 4.3 10*3/uL [facility] Work Phone: [phone] Lymphocytes/100 WBC (Bld) 18.6 % Low 20 - 40 % [facility] Work Phone: [phone] MCH (RBC) [Entitic mass] 33.3 pg 26 - 34 pg [facility] Work Phone: [phone] MCHC 35.2 % 32 - 36 % [facility] Work Phone: [phone] MCV (RBC) [Entitic vol] 94.4 fL 79 - 98 fL [facility] Work Phone: [phone] Monocytes (Bld) [#/Vol] 0.5 10*3/uL 0 - 0.8 10*3/uL [facility] Work Phone: [phone] Monocytes/100 WBC (Bld) 8.6 % 2 - 10 % [facility] Work Phone: [phone] Platelet mean volume (Bld) [Entitic vol] 10.1 fL 7.4 - 10.4 fL [facility] Work Phone: Platelets (Bld) [#/Vol] 196 10*3/uL 140 - 440 10*3/uL [facility] Work Phone: RBC (Bld) [#/Vol] 3.48 10*6/uL Low 3.8 - 5.2 10*6/uL [facility] Work Phone: WBC (Bld) [#/Vol] 5.7 10*3/uL 3.6 - 10.7 10*3/uL [facility] Work Phone: [phone] Test Performed by [facility], [address] [place] [address] [facility] Work Phone: Hemogram w/ Autodiffon 02-13 Abs Baso Cnt 0.1 10*3/uL Normal 0.0-0.2 [facility] Comment on above: Performed By: #### H EMDF, BMP3, LFT3, LIPA4, TROPN #### [address] [address] Abs Neutrophile Cnt 3.9 10*3/uL Normal 1.8-7.0 [facility] Comment on above: Performed By: #### H EMDF, BMP3, LFT3, LIPA4, TROPN #### [address] [address] Basophils/100 WBC (Bld) 1.1 % Normal 0.0-2.0 [facility] Comment on above: Performed By: #### H EMDF, BMP3, LFT3, LIPA4, TROPN #### [address] [address] Eosinophils (Bld) [#/Vol] 0.2 10*3/uL Normal 0.0-0.5 [facility] Comment on above: Performed By: #### H EMDF, BMP3, LFT3, LIPA4, TROPN #### [address] [address] [place] [address] Eosinophils/100 WBC (Bld) 3.4 % Normal 1.0-6.0 [facility] Comment on above: Performed By: #### H EMDF, BMP3, LFT3, LIPA4, TROPN #### [address] Erythrocyte distribution width (RBC) [Ratio] 12.3 % Normal 11.5-14.5 [facility] Comment on above: Performed By: #### H EMDF, BMP3, LFT3, LIPA4, TROPN #### [address] Granulocytes/100 WBC (Bld) 68.3 % Normal 40.0-80.0 [facility] Comment on above: Performed By: #### H EMDF, BMP3, LFT3, LIPA4, TROPN #### [address] Hematocrit (Bld) [Volume fraction] 32.8 % Low 35.0-47.0 [facility] Comment on above: Performed By: #### H EMDF, BMP3, LFT3, LIPA4, TROPN #### [address] Hemoglobin (Bld) [Mass/Vol] 11.6 g/dL Low 11.7-16.0 [facility] Comment on above: Performed By: #### H EMDF, BMP3, LFT3, LIPA4, TROPN #### [address] Lymphocytes (Bld) [#/Vol] 1.1 10*3/uL Normal 1.0-4.3 [facility] Comment on above: Performed By: #### H EMDF, BMP3, LFT3, LIPA4, TROPN #### [address] Lymphocytes/100 WBC (Bld) 18.6 % Low 20.0-40.0 [facility] Comment on above: Performed By: #### H EMDF, BMP3, LFT3, LIPA4, TROPN #### [address] MCH (RBC) [Entitic mass] 33.3 pg Normal 26.0-34.0 [facility] Comment on above: Performed By: #### H EMDF, BMP3, LFT3, LIPA4, TROPN #### [address] MCHC (RBC) [Mass/Vol] 35.2 % Normal 32.0-36.0 [facility] Comment on above: Performed By: #### H EMDF, BMP3, LFT3, LIPA4, TROPN #### [address] MCV (RBC) [Entitic vol] 94.4 fL Normal 79.0-98.0 [facility] Comment on above: Performed By: #### H EMDF, BMP3, LFT3, LIPA4, TROPN #### [address] Monocytes (Bld) [#/Vol] 0.5 10*3/uL Normal 0.0-0.8 [facility] Comment on above: Performed By: #### H EMDF, BMP3, LFT3, LIPA4, TROPN #### [address] Monocytes/100 WBC (Bld) 8.6 % Normal 2.0-10.0 [facility] Comment on above: Performed By: #### H EMDF, BMP3, LFT3, LIPA4, TROPN #### [address] Platelet mean volume (Bld) [Entitic vol] 10.1 fL Normal 7.4-10.4 [facility] Comment on above: Performed By: #### H EMDF, BMP3, LFT3, LIPA4, TROPN #### [address] Platelets (Bld) [#/Vol] 196 10*3/uL Normal 140-440 [facility] Comment on above: Performed By: #### H EMDF, BMP3, LFT3, LIPA4, TROPN #### [address] [address] [address] [place], [place] RBC (Bld) [#/Vol] 3.48 10*6/uL Low 3.80-5.20 [facility] Comment on above: Performed By: #### H EMDF, BMP3, LFT3, LIPA4, TROPN #### [address] [address] [address] [place], [place] WBC (Bld) [#/Vol] 5.7 10*3/uL Normal 3.6-10.7 [facility] Comment on above: Performed By: #### H EMDF, BMP3, LFT3, LIPA4, TROPN #### [address] [address] [place], [place] Hepatic Functionon 0 ALP [Catalytic activity/Vol] 77 U/L Normal 38-126 [facility] Comment on above: Performed By: #### H EMDF, BMP3, LFT3, LIPA4, TROPN #### [address] [place], [place] ALT [Catalytic activity/Vol] 66 U/L Normal 13-69 [facility] Comment on above: Performed By: #### H EMDF, BMP3, LFT3, LIPA4, TROPN #### [address] [place], [place] AST [Catalytic activity/Vol] 62 U/L High 15-46 [facility] Comment on above: Performed By: #### H EMDF, BMP3, LFT3, LIPA4, TROPN #### [address] [place], [place] Bilirubin [Mass/Vol] 0.7 mg/dL Normal 0.2-1.3 [facility] Comment on above: Performed By: #### H EMDF, BMP3, LFT3, LIPA4, TROPN #### [address] [address] [place] Protein [Mass/Vol] 5.8 g/dL Low 6.3-8.2 [facility] Comment on above: Performed By: #### H EMDF, BMP3, LFT3, LIPA4, TROPN #### [address] Bilirubin.direct [Mass/Vol] 0.0 mg/dL Normal 0.0-0.3 [facility] Comment on above: Performed By: #### H EMDF, BMP3, LFT3, LIPA4, TROPN #### [address] Albumin [Mass/Vol] 3.0 g/dL Low 3.5-5.0 [facility] Comment on above: Performed By: #### H EMDF, BMP3, LFT3, LIPA4, TROPN #### [address] Hepatic Function PanelOrdere d By: Gem Lowery on 02-13-2019 Albumin [Mass/Vol] 3.0 g/dL Low 3.5 - 5 g/dL [facility] Work Phone: ALP [Catalytic activity/Vol] 77 U/L 38 - 126 U/L [facility] Work Phone: ALT [Catalytic activity/Vol] 66 U/L 13 - 69 U/L [facility] Work Phone: AST [Catalytic activity/Vol] 62 U/L High 15 - 46 U/L [facility] Work Phone: [phone] Bilirubin [Mass/Vol] 0.7 mg/dL 0.2 - 1 .3 mg/dL [facility] Work Phone: Bilirubin.indirect [Mass/Vol] 0.0 mg/dL 0 - 0.3 mg/dL [facility] Work Phone: Protein [Mass/Vol] 5.8 g/dL Low 6.3 - 8.2 g/dL [facility] Work Phone: Magnesiumon 02-13-2019 Magnesium [Mass/Vol] 1.7 mg/dL Normal 1.6-2.3 [facility] Comment on above: Performed By: #### H EMDF, BMP3, LFT3, LIPA4, TROPN #### [place] [address] [place] [address] MagnesiumOrdered By: Maria C Lowery on 02-13-2019 Magnesium [Mass/Vol] 1.7 mg/dL 1.6 - 2 .3 mg/dL [facility] Work Phone: Test Performed by [facility], [address] [place] [address] [facility] Work Phone: No Panel InformationOrdered By: Gem Lowery on 02-13-2019 Interpretation and review of laboratory results Abnormal [facility] Work Phone: Test Performed by [facility], [address] [place] [id number] [place], [place] [address]A Work Phone: Add On Lab TestOrdered By: Juana Lowery on 02-12-2019 Add On Accepted [facility] Work Phone: Comment on above: Specimen available & acceptable for analysis. Test Performed by [facility], [address] [place] [id number] [place], [place] [address] Work Phone: Add on test from HISon 02-12 Add on test from HIS Accepted Normal [facility] Comment on above: Result Comment: Spec imen available & acceptable for analysis. Performed By: #### H EMDF, BMP3, LFT3, LIPA4, TROPN #### [facility] [employer] [address] [address] Bilirubin, DirectOrdered By: Sonny Peres on 02-12-2019 Bilirubin.indirect [Mass/Vol] 0.0 mg/dL 0 - 0.3 mg/dL [facility] Work Phone: Bilirubin,Directon 0 Bilirubin.direct [Mass/Vol] 0.0 mg/dL Normal 0.0-0.3 [facility] Comment on above: Performed By: #### H EMDF, BMP3, LFT3, LIPA4, TROPN #### [address] [address] CBC auto differentialOrdered By: Sonny Peres on 02-12-2019 Absolute Baso # 0.1 10*3/uL 0 - 0.2 10*3/uL [facility] Work Phone: [phone] Absolute Neut # 4.0 10*3/uL 1.8 - 7 10*3/uL [facility] Work Phone: [phone] Basophils/100 WBC (Bld) 0.9 % 0 - 2 % [facility] Work Phone: [phone] Eosinophils (Bld) [#/Vol] 0.2 10*3/uL 0 - 0.5 10*3/uL [facility] Work Phone: [phone] 222 Eosinophils/100 WBC (Bld) 3.4 % 1 - 6 % [facility] Work Phone: [phone] Erythrocyte distribution width (RBC) [Ratio] 12.4 % 11.5 - 14.5 % [facility] Work Phone: 222 Granulocytes/100 WBC (Bld) 71.5 % 40 - 80 % [facility] Work Phone: ) 222 Hematocrit (Bld) [Volume fraction] 32.5 % Low 35 - 47 % [facility] Work Phone: 222 Hemoglobin (Bld) [Mass/Vol] 11.1 g/dL Low 11.7 - 16 g/dL [facility] Work Phone: [phone] Interpretation and review of laboratory results Abnormal [facility] Work Phone: ) 222 Lymphocytes (Bld) [#/Vol] 1.0 10*3/uL 1 - 4.3 10*3/uL [facility] Work Phone: ) 222 Lymphocytes/100 WBC (Bld) 17.7 % Low 20 - 40 % [facility] Work Phone: () 222 MCH (RBC) [Entitic mass] 33.0 pg 26 - 34 pg [facility] Work Phone: ) 222 MCHC 34.2 % 32 - 36 % [facility] Work Phone: () 222 MCV (RBC) [Entitic vol] 96.5 fL 79 - 98 fL [facility] Work Phone: ) 222 Monocytes (Bld) [#/Vol] 0.4 10*3/uL 0 - 0.8 10*3/uL [facility] Work Phone: [phone] Monocytes/100 WBC (Bld) 6.5 % 2 - 10 % [facility] Work Phone: Platelet mean volume (Bld) [Entitic vol] 10.3 fL 7.4 - 10.4 fL [facility] Work Phone: Platelets (Bld) [#/Vol] 163 10*3/uL 140 - 440 10*3/uL [facility] Work Phone: [phone] RBC (Bld) [#/Vol] 3.37 10*6/uL Low 3.8 - 5.2 10*6/uL [facility] Work Phone: [phone] WBC (Bld) [#/Vol] 5.5 10*3/uL 3.6 - 10.7 10*3/uL [facility] Work Phone: Test Performed by [facility], [address] [place] [id number] [facility] Work Phone: Comp Panel with Mg Reflexon 02-12-2019 ALP [Catalytic activity/Vol] 86 U/L Normal 38-126 [facility] Comment on above: Performed By: #### H EMDF, BMP3, LFT3, LIPA4, TROPN #### [address] ALT [Catalytic activity/Vol] 81 U/L High 13-69 [facility] Comment on above: Performed By: #### H EMDF, BMP3, LFT3, LIPA4, TROPN #### [address] Anion gap [Moles/Vol] 4 Normal [facility] Comment on above: Performed By: #### H EMDF, BMP3, LFT3, LIPA4, TROPN #### [address] AST [Catalytic activity/Vol] 87 U/L High 15-46 [facility] Comment on above: Performed By: #### H EMDF, BMP3, LFT3, LIPA4, TROPN #### [address] Bilirubin [Mass/Vol] 0.6 mg/dL Normal 0.2-1.3 [facility] Comment on above: Performed By: #### H EMDF, BMP3, LFT3, LIPA4, TROPN #### [facility] [address] [place], [place] Calcium [Mass/Vol] 8.8 mg/dL Normal 8.4-10.4 [facility] Comment on above: Performed By: #### H EMDF, BMP3, LFT3, LIPA4, TROPN #### [place] [address] [address] [place], [place] CO2 [Moles/Vol] 27 mmol/L Normal 22-30 [facility] Comment on above: Performed By: #### H EMDF, BMP3, LFT3, LIPA4, TROPN #### [place] [address] [address] [place], [place] Glucose [Mass/Vol] 84 mg/dL Normal 70-100 [facility] Comment on above: Performed By: #### H EMDF, BMP3, LFT3, LIPA4, TROPN #### [address] [address] [place], [place] Protein [Mass/Vol] 5.5 g/dL Low 6.3-8.2 [facility] Comment on above: Performed By: #### H EMDF, BMP3, LFT3, LIPA4, TROPN #### [address] [address] [address] [place], [place] Urea nitrogen [Mass/Vol] 11 mg/dL Normal 7-20 [facility] Comment on above: Performed By: #### H EMDF, BMP3, LFT3, LIPA4, TROPN #### [address] [address] [address] [place], [place] Creatinine [Mass/Vol] 0.78 mg/dL Normal 0.52-1.25 [facility] Comment on above: Performed By: #### H EMDF, BMP3, LFT3, LIPA4, TROPN #### [address] [address] [place], [place] GFR/1.73 sq M predicted among blacks MDRD (S/P/Bld) [Vol rate/Area] mL/min/{1.73_m2} Normal >60 [facility] Comment on above: Performed By: #### H EMDF, BMP3, LFT3, LIPA4, TROPN #### [address] GFR/1.73 sq M predicted among non-blacks MDRD (S/P/Bld) [Vol rate/Area] mL/min/{1.73_m2} Normal >60 [facility] Comment on above: Result Comment: Sour ce- MDRD equation with creatinine calibration to IDMS(NKDEP) eGFR not recommended for drug dose adjustment Performed By: #### H EMDF, BMP3, LFT3, LIPA4, TROPN #### [address] Albumin [Mass/Vol] 2.9 g/dL Low 3.5-5.0 [facility] Comment on above: Performed By: #### H EMDF, BMP3, LFT3, LIPA4, TROPN #### [address] Chloride [Moles/Vol] 110 mmol/L High 98-107 [facility] Comment on above: Performed By: #### H EMDF, BMP3, LFT3, LIPA4, TROPN #### [address] Potassium [Moles/Vol] 3.6 mmol/L Normal 3.5-5.1 [facility] Comment on above: Performed By: #### H EMDF, BMP3, LFT3, LIPA4, TROPN #### [address] Sodium [Moles/Vol] 142 mmol/L Normal 135-145 [facility] Comment on above: Performed By: #### H EMDF, BMP3, LFT3, LIPA4, TROPN #### [address] Comprehensive Metabolic Pane l w/ Reflex to MGOrdered By: Sonny Peres on 02-12-2019 Albumin [Mass/Vol] 2.9 g/dL Low 3.5 - 5 g/dL [facility] Work Phone: [phone] ALP [Catalytic activity/Vol] 86 U/L 38 - 126 U/L [facility] Work Phone: [phone] ALT [Catalytic activity/Vol] 81 U/L High 13 - 69 U/L [facility] Work Phone: [phone] Anion gap [Moles/Vol] 4 mmol/L [facility] Work Phone: [phone] AST [Catalytic activity/Vol] 87 U/L High 15 - 46 U/L [facility] Work Phone: [phone] Bilirubin [Mass/Vol] 0.6 mg/dL 0.2 - 1 .3 mg/dL [facility] Work Phone: [phone] Calcium [Mass/Vol] 8.8 mg/dL 8.4 - 10. 4 mg/dL [facility] Work Phone: [phone] Chloride [Moles/Vol] 110 mmol/L High 98 - 10 7 mmol/L [facility] Work Phone: [phone] CO2 [Moles/Vol] 27 mmol/L 22 - 30 mmol/L [facility] Work Phone: [phone] Creatinine [Mass/Vol] 0.78 mg/dL 0.52 - 1.25 mg/dL [facility] Work Phone: [phone] EGFR IF NonAfrican Grenadian >60.0 >60 mL/min [facility] Work Phone: [phone] Comment on above: Source- MDRD equatio n with creatinine calibration to IDMS(NKDEP) eGFR not recommended for drug dose adjustment GFR/1.73 sq M.predicted among blacks MDRD (S/P/Bld) [Vol rate/Area] mL/min/{1.73_m2} >60 mL/min [facility] Work Phone: [phone] Glucose [Mass/Vol] 84 mg/dL 70 - 100 mg/dL [facility] Work Phone: [phone] Interpretation and review of laboratory results Abnormal [facility] Work Phone: [phone] Potassium [Moles/Vol] 3.6 mmol/L 3.5 - 5.1 mmol/L [facility] Work Phone: Protein [Mass/Vol] 5.5 g/dL Low 6.3 - 8.2 g/dL [facility] Work Phone: Sodium [Moles/Vol] 142 mmol/L 135 - 145 mmol/L [facility] Work Phone: Urea nitrogen [Mass/Vol] 11 mg/dL 7 - 20 mg/dL [facility] Work Phone: Test Performed by [facility], [address] [place] [address] [facility] Work Phone: Hemogram w/ Autodiffon 02-12 Abs Baso Cnt 0.1 10*3/uL Normal 0.0-0.2 [facility] Comment on above: Performed By: #### H EMDF, BMP3, LFT3, LIPA4, TROPN #### [address] [address] Abs Neutrophile Cnt 4.0 10*3/uL Normal 1.8-7.0 [facility] Comment on above: Performed By: #### H EMDF, BMP3, LFT3, LIPA4, TROPN #### [address] [address] Basophils/100 WBC (Bld) 0.9 % Normal 0.0-2.0 [facility] Comment on above: Performed By: #### H EMDF, BMP3, LFT3, LIPA4, TROPN #### [address] [address] Eosinophils (Bld) [#/Vol] 0.2 10*3/uL Normal 0.0-0.5 [facility] Comment on above: Performed By: #### H EMDF, BMP3, LFT3, LIPA4, TROPN #### [address] [address] Eosinophils/100 WBC (Bld) 3.4 % Normal 1.0-6.0 [facility] Comment on above: Performed By: #### H EMDF, BMP3, LFT3, LIPA4, TROPN #### [address] Erythrocyte distribution width (RBC) [Ratio] 12.4 % Normal 11.5-14.5 [facility] Comment on above: Performed By: #### H EMDF, BMP3, LFT3, LIPA4, TROPN #### [address] [address] [place], [place] Granulocytes/100 WBC (Bld) 71.5 % Normal 40.0-80.0 [facility] Comment on above: Performed By: #### H EMDF, BMP3, LFT3, LIPA4, TROPN #### [address] Hematocrit (Bld) [Volume fraction] 32.5 % Low 35.0-47.0 [facility] Comment on above: Performed By: #### H EMDF, BMP3, LFT3, LIPA4, TROPN #### [address] Hemoglobin (Bld) [Mass/Vol] 11.1 g/dL Low 11.7-16.0 [facility] Comment on above: Performed By: #### H EMDF, BMP3, LFT3, LIPA4, TROPN #### [address] Lymphocytes (Bld) [#/Vol] 1.0 10*3/uL Normal 1.0-4.3 [facility] Comment on above: Performed By: #### H EMDF, BMP3, LFT3, LIPA4, TROPN #### [address] Lymphocytes/100 WBC (Bld) 17.7 % Low 20.0-40.0 [facility] Comment on above: Performed By: #### H EMDF, BMP3, LFT3, LIPA4, TROPN #### [address] MCH (RBC) [Entitic mass] 33.0 pg Normal 26.0-34.0 [facility] Comment on above: Performed By: #### H EMDF, BMP3, LFT3, LIPA4, TROPN #### [address] MCHC (RBC) [Mass/Vol] 34.2 % Normal 32.0-36.0 [facility] Comment on above: Performed By: #### H EMDF, BMP3, LFT3, LIPA4, TROPN #### [address] MCV (RBC) [Entitic vol] 96.5 fL Normal 79.0-98.0 [facility] Comment on above: Performed By: #### H EMDF, BMP3, LFT3, LIPA4, TROPN #### [address] Monocytes (Bld) [#/Vol] 0.4 10*3/uL Normal 0.0-0.8 [facility] Comment on above: Performed By: #### H EMDF, BMP3, LFT3, LIPA4, TROPN #### [address] Monocytes/100 WBC (Bld) 6.5 % Normal 2.0-10.0 [facility] Comment on above: Performed By: #### H EMDF, BMP3, LFT3, LIPA4, TROPN #### [address] Platelet mean volume (Bld) [Entitic vol] 10.3 fL Normal 7.4-10.4 [facility] Comment on above: Performed By: #### H EMDF, BMP3, LFT3, LIPA4, TROPN #### [address] Platelets (Bld) [#/Vol] 163 10*3/uL Normal 140-440 [facility] Comment on above: Performed By: #### H EMDF, BMP3, LFT3, LIPA4, TROPN #### [address] RBC (Bld) [#/Vol] 3.37 10*6/uL Low 3.80-5.20 [facility] Comment on above: Performed By: #### H EMDF, BMP3, LFT3, LIPA4, TROPN #### [address] WBC (Bld) [#/Vol] 5.5 10*3/uL Normal 3.6-10.7 [facility] Comment on above: Performed By: #### H EMDF, BMP3, LFT3, LIPA4, TROPN #### [address] [phone] Lipaseon 02-12-2019 Lipase [Catalytic activity/Vol] 173 U/L Normal 23-300 [facility] Comment on above: Performed By: #### H EMDF, BMP3, LFT3, LIPA4, TROPN #### [address] LipaseOrdered By: Sonny montenegro on 02-12-2019 Lipase [Catalytic activity/Vol] 173 U/L 23 - 300 U/L [facility] Work Phone: No Panel InformationOrdered By: Sonny Peres on 02-12-2019 Test Performed by [facility], [address] [place] [id number] [place] [address] Work Phone: Prothrombin Timeon 0 INR Coag (PPP) [Relative time] 1.1 Normal 0.9-1.1 [facility] Comment on above: Result Comment: Kervin [...] H EMDF, BMP3, LFT3, LIPA4, TROPN #### [address] [place] [address] PT Coag (PPP) [Time] 11.1 s Normal 9.0-12.0 [facility] [employer] [facility] Comment on above: Result Comment: . Performed By: #### H EMDF, BMP3, LFT3, LIPA4, TROPN #### [facility] [employer] [facility] [place] [address] Protime-INROrdered By: Nanette Peres on 02-12-2019 INR Coag (PPP) [Relative time] 1.1 {INR} [facility] Work Phone: Comment on above: Recommended Anticoag [...] [Time] 11.1 s 9 - 12 s [facility] Work Phone: Comment on above: . Test Performed by [facility], [address] [place] [id number] [facility] Work Phone: Add On Lab TestOrdered By: Juana Lowery on 02-11-2019 Add On Rejected [facility] Work Phone: Comment on above: No specimen availabl e for addon. Test Performed by [facility], [address] [place] [address] [facility] Work Phone: Add On Lab TestOrdered By: Dasha Montague on 02-11-2019 Add On Accepted [facility] Work Phone: Comment on above: Specimen available & acceptable for analysis. Test Performed by [facility], [address] [place] [id number] Work Phone: Add on test from HISon 02-11 Add on test from HIS Accepted Normal [facility] Comment on above: Result Comment: Spec imen available & acceptable for analysis. Performed By: #### A DDON #### [address] [address] [address] [place], [place] Add on test from HIS Rejected Normal [facility] Comment on above: Result Comment: No s pecimen available for addon. Performed By: #### A DDON #### [address] [address] [address] [place], [place] Basic Metabolic Panelon 01-0 Anion gap [Moles/Vol] 5 Normal [facility] Comment on above: Performed By: #### H EMDF, BMP3, LFT3, LIPA4, TROPN #### [address] [address] [address] [place], [place] Calcium [Mass/Vol] 8.9 mg/dL Normal 8.4-10.4 [facility] Comment on above: Performed By: #### H EMDF, BMP3, LFT3, LIPA4, TROPN #### [address] [address] [address] [place], [place] CO2 [Moles/Vol] 27 mmol/L Normal 22-30 [facility] Comment on above: Performed By: #### H EMDF, BMP3, LFT3, LIPA4, TROPN #### [address] [address] [place], [place] Creatinine [Mass/Vol] 0.72 mg/dL Normal 0.52-1.25 [facility] Comment on above: Performed By: #### H EMDF, BMP3, LFT3, LIPA4, TROPN #### [address] [address] [place], [place] GFR/1.73 sq M predicted among blacks MDRD (S/P/Bld) [Vol rate/Area] mL/min/{1.73_m2} Normal >60 [facility] Comment on above: Performed By: #### H EMDF, BMP3, LFT3, LIPA4, TROPN #### [address] [address] [address] [place], [place] GFR/1.73 sq M predicted among non-blacks MDRD (S/P/Bld) [Vol rate/Area] mL/min/{1.73_m2} Normal >60 [facility] Comment on above: Result Comment: Sour ce- MDRD equation with creatinine calibration to IDMS(NKDEP) eGFR not recommended for drug dose adjustment Performed By: #### H EMDF, BMP3, LFT3, LIPA4, TROPN #### [address] [address] [address] [place], [place] Glucose [Mass/Vol] 120 mg/dL High 70-100 [facility] Comment on above: Performed By: #### H EMDF, BMP3, LFT3, LIPA4, TROPN #### [address] [address] [place], [place] Urea nitrogen [Mass/Vol] 15 mg/dL Normal 7-20 [facility] Comment on above: Performed By: #### H EMDF, BMP3, LFT3, LIPA4, TROPN #### [address] [address] [place], [place] Potassium [Moles/Vol] 3.7 mmol/L Normal 3.5-5.1 [facility] Comment on above: Performed By: #### H EMDF, BMP3, LFT3, LIPA4, TROPN #### [address] [address] [place], [place] Sodium [Moles/Vol] 142 mmol/L Normal 135-145 [facility] Comment on above: Performed By: #### H EMDF, BMP3, LFT3, LIPA4, TROPN #### [address] [place], [place] Chloride [Moles/Vol] 111 mmol/L High 98-107 [facility] Comment on above: Performed By: #### H EMDF, BMP3, LFT3, LIPA4, TROPN #### [address] [address] [place], [place] Basic Metabolic PanelOrdered By: Osmar Ribeiro on 02-11-2019 Anion gap [Moles/Vol] 5 mmol/L [facility] Work Phone: Calcium [Mass/Vol] 8.9 mg/dL 8.4 - 10. 4 mg/dL [facility] Work Phone: [phone] Chloride [Moles/Vol] 111 mmol/L High 98 - 10 7 mmol/L [facility] Work Phone: [phone] CO2 [Moles/Vol] 27 mmol/L 22 - 30 mmol/L [facility] Work Phone: [phone] Creatinine [Mass/Vol] 0.72 mg/dL 0.52 - 1.25 mg/dL [facility] Work Phone: [phone] EGFR IF NonAfrican Grenadian >60.0 >60 mL/min [facility] Work Phone: [phone] Comment on above: Source- MDRD equatio n with creatinine calibration to IDMS(NKDEP) eGFR not recommended for drug dose adjustment GFR/1.73 sq M.predicted among blacks MDRD (S/P/Bld) [Vol rate/Area] mL/min/{1.73_m2} >60 mL/min [facility] Work Phone: [phone] Glucose [Mass/Vol] 120 mg/dL High 70 - 100 mg/dL [facility] Work Phone: [phone] Potassium [Moles/Vol] 3.7 mmol/L 3.5 - 5.1 mmol/L [facility] Work Phone: [phone] Sodium [Moles/Vol] 142 mmol/L 135 - 145 mmol/L [facility] Work Phone: [phone] Urea nitrogen [Mass/Vol] 15 mg/dL 7 - 20 mg/dL [facility] Work Phone: [phone] CBC Auto DifferentialOrdered By: Osmar Ribeiro on 02-11-2019 Absolute Baso # 0.0 10*3/uL 0 - 0.2 10*3/uL [facility] Work Phone: Absolute Neut # 7.8 10*3/uL High 1.8 - 7 10*3/uL [facility] Work Phone: [phone] Basophils/100 WBC (Bld) 0.3 % 0 - 2 % [facility] Work Phone: [phone] Eosinophils (Bld) [#/Vol] 0.0 10*3/uL 0 - 0.5 10*3/uL [facility] Work Phone: [phone] Eosinophils/100 WBC (Bld) 0.4 % Low 1 - 6 % [facility] Work Phone: [phone] Erythrocyte distribution width (RBC) [Ratio] 12.4 % 11.5 - 14.5 % [facility] Work Phone: [phone] Granulocytes/100 WBC (Bld) 78.7 % 40 - 80 % [facility] Work Phone: [phone] Hematocrit (Bld) [Volume fraction] 34.8 % Low 35 - 47 % [facility] Work Phone: [phone] Hemoglobin (Bld) [Mass/Vol] 11.8 g/dL 11.7 - 16 g/dL [facility] Work Phone: [phone] Interpretation and review of laboratory results Abnormal [facility] Work Phone: [phone] Lymphocytes (Bld) [#/Vol] 1.4 10*3/uL 1 - 4.3 10*3/uL [facility] Work Phone: [phone] Lymphocytes/100 WBC (Bld) 14.5 % Low 20 - 40 % [facility] Work Phone: [phone] MCH (RBC) [Entitic mass] 32.7 pg 26 - 34 pg [facility] Work Phone: [phone] MCHC 33.9 % 32 - 36 % [facility] Work Phone: [phone] MCV (RBC) [Entitic vol] 96.7 fL 79 - 98 fL [facility] Work Phone: [phone] Monocytes (Bld) [#/Vol] 0.6 10*3/uL 0 - 0.8 10*3/uL [facility] Work Phone: [phone] Monocytes/100 WBC (Bld) 6.1 % 2 - 10 % [facility] Work Phone: [phone] Platelet mean volume (Bld) [Entitic vol] 10.0 fL 7.4 - 10.4 fL [facility] Work Phone: [phone] Platelets (Bld) [#/Vol] 193 10*3/uL 140 - 440 10*3/uL [facility] Work Phone: [phone] RBC (Bld) [#/Vol] 3.60 10*6/uL Low 3.8 - 5.2 10*6/uL [facility] Work Phone: WBC (Bld) [#/Vol] 9.9 10*3/uL 3.6 - 10.7 10*3/uL [facility] Work Phone: Test Performed by [facility], [address] [place] [id number] [place] [address] Work Phone: EKG 12 Lead - Chest PainOrde red By: Osmar Ribeiro on 02-11-2019 [facility] Test Date: 2019-02-11 Pat Name: Ricardo Villalpando Department: [facility] Room: [facility] 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1940 Requested By: OSMAR RIBEIRO Order Number: [id number] Reading : Zack Lopez Measurements Intervals Anderson Rate: 69 P: IL: QRS: -12 QRSD: 85 T: -16 QT: 413 QTc: 443 Interpretive Statements Atrial fibrillation Low voltage, extremity and precordial leads Electronically Signed On 02-11-2019 22:54:26 EST by Zack Lopez [facility] Work Phone: HEPATIC FUNCTION PANELOrdere d By: Osmar Ribeiro on 02-11-2019 Albumin [Mass/Vol] 3.3 g/dL Low 3.5 - 5 g/dL [facility] Work Phone: ALP [Catalytic activity/Vol] 83 U/L 38 - 126 U/L [facility] Work Phone: ALT [Catalytic activity/Vol] 64 U/L 13 - 69 U/L [facility] Work Phone: AST [Catalytic activity/Vol] 76 U/L High 15 - 46 U/L [facility] Work Phone: Bilirubin [Mass/Vol] 0.5 mg/dL 0.2 - 1 .3 mg/dL [facility] Work Phone: Bilirubin.indirect [Mass/Vol] 0.0 mg/dL 0 - 0.3 mg/dL [facility] Work Phone: Protein [Mass/Vol] 6.2 g/dL Low 6.3 - 8.2 g/dL [facility] Work Phone: Hemogram w/ Autodiffon 02-11 Abs Baso Cnt 0.0 10*3/uL Normal 0.0-0.2 [facility] Comment on above: Performed By: #### H EMDF, BMP3, LFT3, LIPA4, TROPN #### [facility] [employer] [facility] [address] [place] [address] Abs Neutrophile Cnt 7.8 10*3/uL High 1.8-7.0 [facility] Comment on above: Performed By: #### H EMDF, BMP3, LFT3, LIPA4, TROPN #### [facility] [employer] [address] [address] [place] [address] Basophils/100 WBC (Bld) 0.3 % Normal 0.0-2.0 [facility] Comment on above: Performed By: #### H EMDF, BMP3, LFT3, LIPA4, TROPN #### [facility] [employer] [address] [address] [place] [address] Eosinophils (Bld) [#/Vol] 0.0 10*3/uL Normal 0.0-0.5 [facility] Comment on above: Performed By: #### H EMDF, BMP3, LFT3, LIPA4, TROPN #### [facility] [employer] [address] [address] [place] [address] Eosinophils/100 WBC (Bld) 0.4 % Low 1.0-6.0 [facility] Comment on above: Performed By: #### H EMDF, BMP3, LFT3, LIPA4, TROPN #### [address] Erythrocyte distribution width (RBC) [Ratio] 12.4 % Normal 11.5-14.5 [facility] Comment on above: Performed By: #### H EMDF, BMP3, LFT3, LIPA4, TROPN #### [address] Granulocytes/100 WBC (Bld) 78.7 % Normal 40.0-80.0 [facility] Comment on above: Performed By: #### H EMDF, BMP3, LFT3, LIPA4, TROPN #### [address] Hematocrit (Bld) [Volume fraction] 34.8 % Low 35.0-47.0 [facility] Comment on above: Performed By: #### H EMDF, BMP3, LFT3, LIPA4, TROPN #### [address] Hemoglobin (Bld) [Mass/Vol] 11.8 g/dL Normal 11.7-16.0 [facility] Comment on above: Performed By: #### H EMDF, BMP3, LFT3, LIPA4, TROPN #### [address] Lymphocytes (Bld) [#/Vol] 1.4 10*3/uL Normal 1.0-4.3 [facility] Comment on above: Performed By: #### H EMDF, BMP3, LFT3, LIPA4, TROPN #### [address] Lymphocytes/100 WBC (Bld) 14.5 % Low 20.0-40.0 [facility] Comment on above: Performed By: #### H EMDF, BMP3, LFT3, LIPA4, TROPN #### [address] MCH (RBC) [Entitic mass] 32.7 pg Normal 26.0-34.0 [facility] Comment on above: Performed By: #### H EMDF, BMP3, LFT3, LIPA4, TROPN #### [address] MCHC (RBC) [Mass/Vol] 33.9 % Normal 32.0-36.0 [facility] Comment on above: Performed By: #### H EMDF, BMP3, LFT3, LIPA4, TROPN #### [address] MCV (RBC) [Entitic vol] 96.7 fL Normal 79.0-98.0 [facility] Comment on above: Performed By: #### H EMDF, BMP3, LFT3, LIPA4, TROPN #### [address] Monocytes (Bld) [#/Vol] 0.6 10*3/uL Normal 0.0-0.8 [facility] Comment on above: Performed By: #### H EMDF, BMP3, LFT3, LIPA4, TROPN #### [address] Monocytes/100 WBC (Bld) 6.1 % Normal 2.0-10.0 [facility] Comment on above: Performed By: #### H EMDF, BMP3, LFT3, LIPA4, TROPN #### [address] Platelet mean volume (Bld) [Entitic vol] 10.0 fL Normal 7.4-10.4 [facility] Comment on above: Performed By: #### H EMDF, BMP3, LFT3, LIPA4, TROPN #### [address] Platelets (Bld) [#/Vol] 193 10*3/uL Normal 140-440 [facility] Comment on above: Performed By: #### H EMDF, BMP3, LFT3, LIPA4, TROPN #### [address] [address] [address] [place], [place] RBC (Bld) [#/Vol] 3.60 10*6/uL Low 3.80-5.20 [facility] Comment on above: Performed By: #### H EMDF, BMP3, LFT3, LIPA4, TROPN #### [address] [address] [place] WBC (Bld) [#/Vol] 9.9 10*3/uL Normal 3.6-10.7 [facility] Comment on above: Performed By: #### H EMDF, BMP3, LFT3, LIPA4, TROPN #### [address] [address] [place] Hepatic Functionon 0 ALP [Catalytic activity/Vol] 83 U/L Normal 38-126 [facility] Comment on above: Performed By: #### H EMDF, BMP3, LFT3, LIPA4, TROPN #### [address] [address] [place] ALT [Catalytic activity/Vol] 64 U/L Normal 13-69 [facility] Comment on above: Performed By: #### H EMDF, BMP3, LFT3, LIPA4, TROPN #### [address] AST [Catalytic activity/Vol] 76 U/L High 15-46 [facility] Comment on above: Performed By: #### H EMDF, BMP3, LFT3, LIPA4, TROPN #### [address] [address] [place], [place] Bilirubin [Mass/Vol] 0.5 mg/dL Normal 0.2-1.3 [facility] Comment on above: Performed By: #### H EMDF, BMP3, LFT3, LIPA4, TROPN #### [address] Bilirubin.direct [Mass/Vol] 0.0 mg/dL Normal 0.0-0.3 [facility] Comment on above: Performed By: #### H EMDF, BMP3, LFT3, LIPA4, TROPN #### [facility] [address] [place] [address] Protein [Mass/Vol] 6.2 g/dL Low 6.3-8.2 [facility] Comment on above: Performed By: #### H EMDF, BMP3, LFT3, LIPA4, TROPN #### [facility] [address] [place] [address] Albumin [Mass/Vol] 3.3 g/dL Low 3.5-5.0 [facility] Comment on above: Performed By: #### H EMDF, BMP3, LFT3, LIPA4, TROPN #### [facility] [address] [place] [address] Lipaseon 02-11-2019 Lipase [Catalytic activity/Vol] 164 U/L Normal 23-300 [facility] Comment on above: Performed By: #### H EMDF, BMP3, LFT3, LIPA4, TROPN #### [facility] [address] [place] [address] LipaseOrdered By: Osmar Duncankaren wright on 02-11-2019 Lipase [Catalytic activity/Vol] 164 U/L 23 - 300 U/L [facility] Work Phone: MRI ABDOMEN WO CONTRASTOrder ed By: Gem Lowery on 02-11-2019 Patient Name: RICARDO VILLALPANDO ---MRI--- Exam Date/Time 02/11/2019 13:41:50 EST Exam MRI Abdomen w/o Contrast Ordering Physician DO LOWERY ELISABETH Accession Number [id number] CPT4 Codes 01250 () Reason For Exam evaluate for choledocholithiasis [...] Phone: [facility], [facility] Incoming Radiology Results From [facility] - 02/11/2019 2:56 PM EST Patient Name: RICARDO VILLALPANDO ---MRI--- Exam Date/Time 02/11/2019 13:41:50 EST Exam MRI Abdomen w/o Contrast Ordering Physician DO LOWERY ELISABETH Accession Number [id number] CPT4 Codes 73606 () Reason For Exam evaluate for choledocholithiasis [...] Ordering Physician DO LOWERY ELISABETH Accession Number [id number] CPT4 Codes 93363 () Reason For Exam evaluate for choledocholithiasis [...] Transcribed Date and Time: 02/11/2019 2:42 Normal [facility] [employer] No Panel InformationOrdered By: Osmar Ribeiro on 02-11-2019 Interpretation and review of laboratory results Abnormal [facility] Work Phone: Test Performed by [employer] [facility], [facility] [place], [place] [id number] [address] Work Phone: PROTIME/INR & PTTOrdered By: Gem Lowery on 02-11-2019 aPTT Coag (Bld) [Time] 27 s 20 - 30.5 s S [facility] Work Phone: Comment on above: NOTE: The therapeuti c time for Heparin anticoagulation, based on Xa activity inhibition, is an APTT of 46-80 seconds. INR Coag (PPP) [Relative time] 1.0 {INR} [place] Work Phone: Comment on above: Recommended Anticoag [...] [Time] 11 s 9 - 12 s [facility] Work Phone: Comment on above: . Test Performed by [employer], [facility] [place] [address] [address] Work Phone: Protime AND APTTon 0 INR Coag (PPP) [Relative time] 1.0 Normal 0.9-1.1 [facility] [employer] Comment on above: Result Comment: Kervin mmended [...] Infarction Performed By: #### P T/AP #### [address] PT Coag (PPP) [Time] 11.0 s Normal 9.0-12.0 [facility] Comment on above: Result Comment: . Performed By: #### P T/AP #### [address] aPTT Coag (Bld) [Time] 27.0 s Normal 20.0-30.5 [facility] Comment on above: Result Comment: NOTE : The therapeutic time for Heparin anticoagulation, based on Xa activity inhibition, is an APTT of 46-80 seconds. Performed By: #### P T/AP #### [address] TroponinOrdered By: Jf on 02-11-2019 Troponin I.cardiac [Mass/Vol] ng/mL 0 - 0.034 ng/mL [facility] Work Phone: Comment on above: . Test Performed by [facility], [address] [place] [address] [facility] Work Phone: Troponin Ion 02-11-2019 Troponin I.cardiac [Mass/Vol] ng/mL Normal 0.000-0.034 [facility] Comment on above: Result Comment: . Performed By: #### H EMDF, BMP3, LFT3, LIPA4, TROPN #### [address] US ABDOMEN LIMITED Specify o rgan? GALLBLADDER, PANCREAS, LIVEROrdered By: Reina Andino on 02-11-2019 Patient Name: RICARDO VILLALPANDO ---Ultrasound--- Exam Date/Time 02/11/2019 08:31:45 EST Exam US Abdomen Limited Ordering Physician Rita ANDINO SHELLY D Accession Number [id number] CPT4 Codes 69690 () Reason For Exam RUQ pain Report [...] Time: 02/11/2019 9:06 [facility] Work Phone: Kash, [facility] Incoming Radiology Results From [facility] - 02/11/2019 9:11 AM EST Patient Name: RICARDO VILLALPANDO ---Ultrasound--- Exam Date/Time 02/11/2019 08:31:45 EST Exam US Abdomen Limited Ordering Physician Rita ANDINO SHELLY D Accession Number [id number] CPT4 Codes 80646 () Reason For Exam RUQ pain Report [...] Physician Rita ANDINO SHELLY D Accession Number [id number] CPT4 Codes 03007 () Reason For Exam RUQ pain Report [...] Transcribed Date and Time: 02/11/2019 9:06 Normal [facility] Comprehensive Metabolic Pane keely 09-21-2018 Albumin [Mass/Vol] 3.5 g/dL 3.5 - 5 g/dL [place] ALP [Catalytic activity/Vol] 117 U/L 38 - 126 U/L [place] ALT [Catalytic activity/Vol] 47 U/L 13 - 69 U/L [place] Anion gap [Moles/Vol] 5 mmol/L [place] AST [Catalytic activity/Vol] 137 U/L High 15 - 46 U/L [place] Bilirubin Ql (U) 0.7 mg/dL 0.2 - 1.3 mg/dL [place] Calcium [Mass/Vol] 9.4 mg/dL 8.4 - 10. 4 mg/dL [place] Chloride [Moles/Vol] 102 mmol/L 98 - 10 7 mmol/L [place] CO2 [Moles/Vol] 28 mmol/L 22 - 30 mmol/L [place] Creatinine [Mass/Vol] 0.61 mg/dL 0.52 - 1.25 mg/dL [place] EGFR IF NonAfrican [place] >60.0 >60 mL/min [place] Comment on above: Source- MDRD equatio n with creatinine calibration to IDMS(NKDEP) eGFR not recommended for drug dose adjustment GFR/1.73 sq M predicted among blacks MDRD (S/P/Bld) [Vol rate/Area] mL/min/{1.73_m2} >60 mL/min [place] Glucose [Mass/Vol] 135 mg/dL High 70 - 100 mg/dL [place] Interpretation and review of laboratory results Abnormal [place] Potassium [Moles/Vol] 3.4 mmol/L Low 3.5 - 5.1 mmol/L [place] Protein [Mass/Vol] 6.6 g/dL 6.3 - 8.2 g/dL [place] Sodium [Moles/Vol] 134 mmol/L Low 135 - 145 mmol/L [place] Urea nitrogen [Mass/Vol] 5 mg/dL Low 7 - 20 mg/dL [place] Test Performed by [facility], [address], [place], [place] [address] [place] CBC Auto Differentialon 09-08 Absolute Baso # 0.1 10*3/uL 0 - 0.2 10*3/uL [place] Absolute Neut # 5.1 10*3/uL 1.8 - 7 10*3/uL [place] Basophils/100 WBC (Bld) 0.8 % 0 - 2 % [place] Eosinophils (Bld) [#/Vol] 0.2 10*3/uL 0 - 0.5 10*3/uL [place] Eosinophils/100 WBC (Bld) 3.4 % 1 - 6 % [place] Erythrocyte distribution width (RBC) [Ratio] 17.3 % High 11.5 - 14.5 % [place] Granulocytes/100 WBC (Bld) 68.2 % 40 - 80 % [place] Hematocrit (Bld) [Volume fraction] 35.1 % 35 - 47 % [place] Hemoglobin (Bld) [Mass/Vol] 11.4 g/dL Low 11.7 - 16 g/dL [place] Interpretation and review of laboratory results Abnormal [place] Lymphocytes (Bld) [#/Vol] 1.5 10*3/uL 1 - 4.3 10*3/uL [place] Lymphocytes/100 WBC (Bld) 20.2 % 20 - 40 % [place] MCH (RBC) [Entitic mass] 29.0 pg 26 - 34 pg [place] MCHC (RBC) [Mass/Vol] 32.6 % 32 - 36 % [place] MCV (RBC) [Entitic vol] 88.9 fL 79 - 98 fL [place] Monocytes (Bld) [#/Vol] 0.5 10*3/uL 0 - 0.8 10*3/uL [place] Monocytes/100 WBC (Bld) 7.4 % 2 - 10 % [place] Platelet mean volume (Bld) [Entitic vol] 9.6 fL 7.4 - 10.4 fL [place] Platelets (Bld) [#/Vol] 232 10*3/uL 140 - 440 10*3/uL [place] RBC (Bld) [#/Vol] 3.95 10*6/uL 3.8 - 5.2 10*6/uL [place] WBC (Bld) [#/Vol] 7.4 10*3/uL 3.6 - 10.7 10*3/uL [place] Test Performed by [facility], [address] [place], [place], [place] [id number] [place] [address] Comprehensive Metabolic Pane keely 09-20-2018 Albumin [Mass/Vol] 3.6 g/dL 3.5 - 5 g/dL [place] ALP [Catalytic activity/Vol] 141 U/L High 38 - 126 U/L [place] ALT [Catalytic activity/Vol] 56 U/L 13 - 69 U/L [place] Anion gap [Moles/Vol] 10 mmol/L [place] AST [Catalytic activity/Vol] 68 U/L High 15 - 46 U/L [place] Bilirubin Ql (U) 0.6 mg/dL 0.2 - 1.3 mg/dL [place] Calcium [Mass/Vol] 9.3 mg/dL 8.4 - 10. 4 mg/dL [place] Chloride [Moles/Vol] 104 mmol/L 98 - 10 7 mmol/L [place] CO2 [Moles/Vol] 25 mmol/L 22 - 30 mmol/L [place] Creatinine [Mass/Vol] 0.63 mg/dL 0.52 - 1.25 mg/dL [place] EGFR IF NonAfrican [place] >60.0 >60 mL/min [place] Comment on above: Source- MDRD equatio n with creatinine calibration to IDMS(NKDEP) eGFR not recommended for drug dose adjustment GFR/1.73 sq M predicted among blacks MDRD (S/P/Bld) [Vol rate/Area] mL/min/{1.73_m2} >60 mL/min [place] Glucose [Mass/Vol] 136 mg/dL High 70 - 100 mg/dL [place] Potassium [Moles/Vol] 3.7 mmol/L 3.5 - 5.1 mmol/L [place] Protein [Mass/Vol] 6.6 g/dL 6.3 - 8.2 g/dL [place] Sodium [Moles/Vol] 140 mmol/L 135 - 145 mmol/L [place] Urea nitrogen [Mass/Vol] 8 mg/dL 7 - 20 mg/dL [place] Lactate Dehydrogenaseon 09-08 LD 182 U/L High 50 - 170 U/L [place] Otheron 09-20-2018 Blood Culture, Routine No growth at 5 days. [place] Test Performed by [facility], [address] [place] [address] Specimen Source Comment:Blood [place] Interpretation and review of laboratory results Abnormal [place] Test Performed by [facility], [address], [place], [place] [address] [place] CBC Auto Differentialon 09-08 Absolute Baso # 0.1 10*3/uL 0 - 0.2 10*3/uL [place] Absolute Neut # 4.2 10*3/uL 1.8 - 7 10*3/uL [place] Basophils/100 WBC (Bld) 1.0 % 0 - 2 % [place] Eosinophils (Bld) [#/Vol] 0.2 10*3/uL 0 - 0.5 10*3/uL [place] Eosinophils/100 WBC (Bld) 4.0 % 1 - 6 % [place] Erythrocyte distribution width (RBC) [Ratio] 17.7 % High 11.5 - 14.5 % [place] Granulocytes/100 WBC (Bld) 68.4 % 40 - 80 % [place] Hematocrit (Bld) [Volume fraction] 32.0 % Low 35 - 47 % [place] Hemoglobin (Bld) [Mass/Vol] 10.6 g/dL Low 11.7 - 16 g/dL [place] Interpretation and review of laboratory results Abnormal [place] Lymphocytes (Bld) [#/Vol] 1.2 10*3/uL 1 - 4.3 10*3/uL [place] Lymphocytes/100 WBC (Bld) 19.7 % Low 20 - 40 % [place] MCH (RBC) [Entitic mass] 29.0 pg 26 - 34 pg [place] MCHC (RBC) [Mass/Vol] 33.2 % 32 - 36 % [place] MCV (RBC) [Entitic vol] 87.4 fL 79 - 98 fL [place] Monocytes (Bld) [#/Vol] 0.4 10*3/uL 0 - 0.8 10*3/uL [place] Monocytes/100 WBC (Bld) 6.9 % 2 - 10 % [place] Platelet mean volume (Bld) [Entitic vol] 9.4 fL 7.4 - 10.4 fL [place] Platelets (Bld) [#/Vol] 225 10*3/uL 140 - 440 10*3/uL [place] RBC (Bld) [#/Vol] 3.66 10*6/uL Low 3.8 - 5.2 10*6/uL [place] WBC (Bld) [#/Vol] 6.2 10*3/uL 3.6 - 10.7 10*3/uL [place] Test Performed by [facility], [address], [place], [place] [address] [place] Comprehensive Metabolic Pane keely 09-19-2018 Albumin [Mass/Vol] 3.3 g/dL Low 3.5 - 5 g/dL [place] ALP [Catalytic activity/Vol] 117 U/L 38 - 126 U/L [place] ALT [Catalytic activity/Vol] 78 U/L High 13 - 69 U/L [place] Anion gap [Moles/Vol] 5 mmol/L [place] AST [Catalytic activity/Vol] 52 U/L High 15 - 46 U/L [place] Bilirubin Ql (U) 0.8 mg/dL 0.2 - 1.3 mg/dL [place] Calcium [Mass/Vol] 9.0 mg/dL 8.4 - 10. 4 mg/dL [place] Chloride [Moles/Vol] 102 mmol/L 98 - 10 7 mmol/L [place] CO2 [Moles/Vol] 27 mmol/L 22 - 30 mmol/L [place] Creatinine [Mass/Vol] 0.66 mg/dL 0.52 - 1.25 mg/dL [place] EGFR IF NonAfrican [place] >60.0 >60 mL/min [place] Comment on above: Source- MDRD equatio n with creatinine calibration to IDMS(NKDEP) eGFR not recommended for drug dose adjustment GFR/1.73 sq M predicted among blacks MDRD (S/P/Bld) [Vol rate/Area] mL/min/{1.73_m2} >60 mL/min [place] Glucose [Mass/Vol] 125 mg/dL High 70 - 100 mg/dL [place] Interpretation and review of laboratory results Abnormal [place] Potassium [Moles/Vol] 3.8 mmol/L 3.5 - 5.1 mmol/L [place] Protein [Mass/Vol] 6.3 g/dL 6.3 - 8.2 g/dL [place] Sodium [Moles/Vol] 133 mmol/L Low 135 - 145 mmol/L [place] Urea nitrogen [Mass/Vol] 10 mg/dL 7 - 20 mg/dL [place] Lipaseon 09-19-2018 Lipase [Catalytic activity/Vol] 247 U/L 23 - 300 U/L [place] Otheron 09-19-2018 Test Performed by [facility], [address], [place], [place] [address] [place] US ABDOMEN LIMITEDon 019 Patient Name: RICARDO VILLALPANDO ---Ultrasound--- Exam Date/Time 09/19/2018 14:28:18 EDT Exam US Abdomen Limited Ordering Physician MD CHONG, SEEMA Wheeler Accession Number [id number] CPT4 Codes 60958 () Reason For Exam re-eval pancreas, rising [...] RUSSELL Transcribed Date and Time: 09/19/2018 3:29 [place] [facility], [facility] Incoming Radiology Results From [facility] - 09/19/2018 3:29 PM EDT Patient Name: RICARDO VILLALPANDO ---Ultrasound--- Exam Date/Time 09/19/2018 14:28:18 EDT Exam US Abdomen Limited Ordering Physician MD CHONG, SEEMA Wheeler Accession Number [id number] CPT4 Codes 48260 () Reason For Exam re-eval pancreas, rising [...] RUSSELL Transcribed Date and Time: 09/19/2018 3:29 [place] CBC Auto Differentialon 09-08 Absolute Baso # 0.1 10*3/uL 0 - 0.2 10*3/uL [place] Absolute Neut # 6.1 10*3/uL 1.8 - 7 10*3/uL [place] Basophils/100 WBC (Bld) 0.9 % 0 - 2 % [place] Eosinophils (Bld) [#/Vol] 0.4 10*3/uL 0 - 0.5 10*3/uL [place] Eosinophils/100 WBC (Bld) 4.0 % 1 - 6 % [place] Erythrocyte distribution width (RBC) [Ratio] 18.1 % High 11.5 - 14.5 % [place] Granulocytes/100 WBC (Bld) 68.6 % 40 - 80 % [place] Hematocrit (Bld) [Volume fraction] 36.2 % 35 - 47 % [place] Hemoglobin (Bld) [Mass/Vol] 11.8 g/dL 11.7 - 16 g/dL [place] Lymphocytes (Bld) [#/Vol] 1.8 10*3/uL 1 - 4.3 10*3/uL [place] Lymphocytes/100 WBC (Bld) 19.9 % Low 20 - 40 % [place] MCH (RBC) [Entitic mass] 28.8 pg 26 - 34 pg [place] MCHC (RBC) [Mass/Vol] 32.7 % 32 - 36 % [place] MCV (RBC) [Entitic vol] 88.1 fL 79 - 98 fL [place] Monocytes (Bld) [#/Vol] 0.6 10*3/uL 0 - 0.8 10*3/uL [place] Monocytes/100 WBC (Bld) 6.6 % 2 - 10 % [place] Platelet mean volume (Bld) [Entitic vol] 9.3 fL 7.4 - 10.4 fL [place] Platelets (Bld) [#/Vol] 281 10*3/uL 140 - 440 10*3/uL [place] RBC (Bld) [#/Vol] 4.11 10*6/uL 3.8 - 5.2 10*6/uL [place] WBC (Bld) [#/Vol] 8.9 10*3/uL 3.6 - 10.7 10*3/uL [place] Comprehensive Metabolic Pane keely 09-18-2018 Albumin [Mass/Vol] 3.7 g/dL 3.5 - 5 g/dL [place] ALP [Catalytic activity/Vol] 165 U/L High 38 - 126 U/L [place] ALT [Catalytic activity/Vol] 93 U/L High 13 - 69 U/L [place] Anion gap [Moles/Vol] 5 mmol/L [place] AST [Catalytic activity/Vol] 69 U/L High 15 - 46 U/L [place] Bilirubin Ql (U) 0.8 mg/dL 0.2 - 1.3 mg/dL [place] Calcium [Mass/Vol] 9.4 mg/dL 8.4 - 10. 4 mg/dL [place] Chloride [Moles/Vol] 102 mmol/L 98 - 10 7 mmol/L [place] CO2 [Moles/Vol] 28 mmol/L 22 - 30 mmol/L [place] Creatinine [Mass/Vol] 0.7 mg/dL 0.52 - 1.25 mg/dL [place] EGFR IF NonAfrican [place] >60.0 >60 mL/min [place] Comment on above: Source- MDRD equatio n with creatinine calibration to IDMS(NKDEP) eGFR not recommended for drug dose adjustment GFR/1.73 sq M predicted among blacks MDRD (S/P/Bld) [Vol rate/Area] mL/min/{1.73_m2} >60 mL/min [place] Glucose [Mass/Vol] 133 mg/dL High 70 - 100 mg/dL [place] Potassium [Moles/Vol] 3.6 mmol/L 3.5 - 5.1 mmol/L [place] Protein [Mass/Vol] 7.0 g/dL 6.3 - 8.2 g/dL [place] Sodium [Moles/Vol] 136 mmol/L 135 - 145 mmol/L [place] Urea nitrogen [Mass/Vol] 10 mg/dL 7 - 20 mg/dL [place] Lipaseon 09-18-2018 Lipase [Catalytic activity/Vol] 513 U/L High 23 - 300 U/L [place] Otheron 09-18-2018 Interpretation and review of laboratory results Abnormal [place] Test Performed by [facility], [address] [place], [place], [place] [address] [place] Comprehensive Metabolic Pane keely 09-17-2018 Albumin [Mass/Vol] 3.4 g/dL Low 3.5 - 5 g/dL [place] ALP [Catalytic activity/Vol] 146 U/L High 38 - 126 U/L [place] ALT [Catalytic activity/Vol] 109 U/L High 13 - 69 U/L [place] Anion gap [Moles/Vol] 7 mmol/L [place] AST [Catalytic activity/Vol] 76 U/L High 15 - 46 U/L [place] Bilirubin Ql (U) 0.6 mg/dL 0.2 - 1.3 mg/dL [place] Calcium [Mass/Vol] 9.0 mg/dL 8.4 - 10. 4 mg/dL [place] Chloride [Moles/Vol] 104 mmol/L 98 - 10 7 mmol/L [place] CO2 [Moles/Vol] 27 mmol/L 22 - 30 mmol/L [place] Creatinine [Mass/Vol] 0.66 mg/dL 0.52 - 1.25 mg/dL [place] EGFR IF NonAfrican [place] >60.0 >60 mL/min [place] Comment on above: Source- MDRD equatio n with creatinine calibration to IDMS(NKDEP) eGFR not recommended for drug dose adjustment GFR/1.73 sq M predicted among blacks MDRD (S/P/Bld) [Vol rate/Area] mL/min/{1.73_m2} >60 mL/min [place] Glucose [Mass/Vol] 141 mg/dL High 70 - 100 mg/dL [place] Potassium [Moles/Vol] 3.3 mmol/L Low 3.5 - 5.1 mmol/L [place] Protein [Mass/Vol] 6.4 g/dL 6.3 - 8.2 g/dL [place] Sodium [Moles/Vol] 139 mmol/L 135 - 145 mmol/L [place] Urea nitrogen [Mass/Vol] 8 mg/dL 7 - 20 mg/dL [place] Lipaseon 09-17-2018 Lipase [Catalytic activity/Vol] 351 U/L High 23 - 300 U/L [place] NM HEPATOBILIARY W/O CCKon 0 09-17-2018 Patient Name: RICARDO VILLALPANDO ---Nuc Med--- Exam Date/Time 09/17/2018 09:00:00 EDT Exam NM Hepatobiliary System Imaging Ordering Physician KIKO LAU MD Accession Number [id number] CPT4 Codes 23854 () Reason For Exam abd pain Report [...] on --- Final --- Dictating Physician: MD GM, IZABELA Bradley Signed Date and Time: 09/17/2018 10:53 am Signed by: MD WORRELL ANTHONY J Transcribed Date and Time: 09/17/2018 10:54 [place] [facility] Incoming Radiology Results From [facility] - 09/17/2018 10:55 AM EDT Patient Name: RICARDO VILLALPANDO ---Nuc Med--- Exam Date/Time 09/17/2018 09:00:00 EDT Exam NM Hepatobiliary System Imaging Ordering Physician KIKO LAU MD Accession Number [id number] CPT4 Codes 28795 () Reason For Exam abd pain Report [...] J Transcribed Date and Time: 09/17/2018 10:54 [place] Otheron 09-17-2018 Interpretation and review of laboratory results Abnormal [place] Test Performed by [facility], [address] [place] [address] URINE CULTUREon 09-17-2018 Bacteria identified Cx Nom (U) Group B streptococcus Abnormal [place] Bacteria identified Cx Nom (U) 10,000-50,000 CFU/ml Susceptibility testing not routinely performed. Group B streptococcus is universally susceptible to beta-lactam antibiotics and vancomycin. If patient is beta-lactam allergic, please call [facility] Microbiology lab ([phone]) within 2 days to request susceptibility testing. If isolated from urine, Group B strep may indicate colonization or infection. [place] Bacteria identified Cx Nom (U) Normal urogenital nayeli present. Abnormal [place] Interpretation and review of laboratory results Abnormal [place] Test Performed by [facility], [address] [place] [address] Specimen Source Comment:Urine, clean catch [place] CBCon 09-16-2018 Erythrocyte distribution width (RBC) [Ratio] 17.5 % High 11.5 - 14.5 % [place] Hematocrit (Bld) [Volume fraction] 34.0 % Low 35 - 47 % [place] Hemoglobin (Bld) [Mass/Vol] 11.3 g/dL Low 11.7 - 16 g/dL [place] Interpretation and review of laboratory results Abnormal [place] MCH (RBC) [Entitic mass] 28.9 pg 26 - 34 pg [place] MCHC (RBC) [Mass/Vol] 33.2 % 32 - 36 % [place] MCV (RBC) [Entitic vol] 87.1 fL 79 - 98 fL [place] Platelet mean volume (Bld) [Entitic vol] 9.4 fL 7.4 - 10.4 fL [place] Platelets (Bld) [#/Vol] 247 10*3/uL 140 - 440 10*3/uL [place] RBC (Bld) [#/Vol] 3.91 10*6/uL 3.8 - 5.2 10*6/uL [place] WBC (Bld) [#/Vol] 8.1 10*3/uL 3.6 - 10.7 10*3/uL [place] Test Performed by [facility], [address], [place], [place] [address] [place] Comprehensive Metabolic Pane l w/ Reflex to MGon 09-16-2018 Albumin [Mass/Vol] 3.7 g/dL 3.5 - 5 g/dL [place] ALP [Catalytic activity/Vol] 145 U/L High 38 - 126 U/L [place] ALT [Catalytic activity/Vol] 145 U/L High 13 - 69 U/L [place] Anion gap [Moles/Vol] 7 mmol/L [place] AST [Catalytic activity/Vol] 133 U/L High 15 - 46 U/L [place] Bilirubin Ql (U) 0.9 mg/dL 0.2 - 1.3 mg/dL [place] Calcium [Mass/Vol] 9.1 mg/dL 8.4 - 10. 4 mg/dL [place] Chloride [Moles/Vol] 99 mmol/L 98 - 10 7 mmol/L [place] CO2 [Moles/Vol] 29 mmol/L 22 - 30 mmol/L [place] Creatinine [Mass/Vol] 0.75 mg/dL 0.52 - 1.25 mg/dL [place] EGFR IF NonAfrican [place] >60.0 >60 mL/min [place] Comment on above: Source- MDRD equatio n with creatinine calibration to IDMS(NKDEP) eGFR not recommended for drug dose adjustment GFR/1.73 sq M predicted among blacks MDRD (S/P/Bld) [Vol rate/Area] mL/min/{1.73_m2} >60 mL/min [place] Glucose [Mass/Vol] 131 mg/dL High 70 - 100 mg/dL [place] Interpretation and review of laboratory results Abnormal [place] Potassium [Moles/Vol] 3.2 mmol/L Low 3.5 - 5.1 mmol/L [place] Protein [Mass/Vol] 6.8 g/dL 6.3 - 8.2 g/dL [place] Sodium [Moles/Vol] 135 mmol/L 135 - 145 mmol/L [place] Urea nitrogen [Mass/Vol] 11 mg/dL 7 - 20 mg/dL [place] Test Performed by [facility], [address], [place], [place] [address] [place] MRI ABDOMEN WO CONTRASTon Patient Name: RICARDO VILLALPANDO ---MRI--- Exam Date/Time 09/16/2018 16:17:45 EDT Exam MRI Abdomen w/o Contrast Ordering Physician KIKO LAU MD Accession Number [id number] CPT4 Codes 49630 () Reason For Exam gallstones,abd pain Report [...] M Transcribed Date and Time: 09/16/2018 6:06 [facility] [place] [facility] Incoming Radiology Results From [facility] - 09/16/2018 6:06 PM EDT Patient Name: RICARDO VILLALPANDO ---MRI--- Exam Date/Time 09/16/2018 16:17:45 EDT Exam MRI Abdomen w/o Contrast Ordering Physician KIKO LAU MD Accession Number [id number] CPT4 Codes 98813 () Reason For Exam gallstones,abd pain Report [...] M Transcribed Date and Time: 09/16/2018 6:06 [place] Magnesiumon 09-16-2018 Magnesium [Mass/Vol] 1.7 mg/dL 1.6 - 2 .3 mg/dL [place] Test Performed by [facility], [address], [place], [place] [address] [place] Troponinon 09-16-2018 Troponin I.cardiac [Mass/Vol] ng/mL 0 - 0.034 ng/mL [place] Comment on above: < 0.034 = negative 0.034 0.120 = indeterminate > 0.120 = positive Test Performed by [facility], [address], [place], [place] [address] [place] CBC Auto Differentialon Absolute Baso # 0.1 10*3/uL 0 - 0.2 10*3/uL [place] Absolute Neut # 5.9 10*3/uL 1.8 - 7 10*3/uL [place] Basophils/100 WBC (Bld) 1.1 % 0 - 2 % [place] Eosinophils (Bld) [#/Vol] 0.3 10*3/uL 0 - 0.5 10*3/uL [place] Eosinophils/100 WBC (Bld) 3.2 % 1 - 6 % [place] Erythrocyte distribution width (RBC) [Ratio] 17.4 % High 11.5 - 14.5 % [place] Granulocytes/100 WBC (Bld) 67.0 % 40 - 80 % [place] Hematocrit (Bld) [Volume fraction] 36.5 % 35 - 47 % [place] Hemoglobin (Bld) [Mass/Vol] 12.0 g/dL 11.7 - 16 g/dL [place] Interpretation and review of laboratory results Abnormal [place] Lymphocytes (Bld) [#/Vol] 2.0 10*3/uL 1 - 4.3 10*3/uL [place] Lymphocytes/100 WBC (Bld) 22.6 % 20 - 40 % [place] MCH (RBC) [Entitic mass] 28.3 pg 26 - 34 pg [place] MCHC (RBC) [Mass/Vol] 32.9 % 32 - 36 % [place] MCV (RBC) [Entitic vol] 85.8 fL 79 - 98 fL [place] Monocytes (Bld) [#/Vol] 0.5 10*3/uL 0 - 0.8 10*3/uL [place] Monocytes/100 WBC (Bld) 6.1 % 2 - 10 % [place] Platelet mean volume (Bld) [Entitic vol] 9.7 fL 7.4 - 10.4 fL [place] Platelets (Bld) [#/Vol] 275 10*3/uL 140 - 440 10*3/uL [place] RBC (Bld) [#/Vol] 4.25 10*6/uL 3.8 - 5.2 10*6/uL [place] WBC (Bld) [#/Vol] 8.8 10*3/uL 3.6 - 10.7 10*3/uL [place] Test Performed by [facility], [address], [place], [place] [id number] [place] [address] Comprehensive Metabolic Pane keely 09-15-2018 Albumin [Mass/Vol] 4.1 g/dL 3.5 - 5 g/dL [place], [place] ALP [Catalytic activity/Vol] 170 U/L High 38 - 126 U/L [place] ALT [Catalytic activity/Vol] 191 U/L High 13 - 69 U/L [place] Anion gap [Moles/Vol] 6 mmol/L [place], [place] AST [Catalytic activity/Vol] 216 U/L High 15 - 46 U/L [place] Bilirubin Ql (U) 0.9 mg/dL 0.2 - 1.3 mg/dL [place] Calcium [Mass/Vol] 9.2 mg/dL 8.4 - 10. 4 mg/dL [place] Chloride [Moles/Vol] 100 mmol/L 98 - 10 7 mmol/L [place] CO2 [Moles/Vol] 33 mmol/L High 22 - 30 mmol/L [place] Creatinine [Mass/Vol] 0.83 mg/dL 0.52 - 1.25 mg/dL [place] EGFR IF NonAfrican [place] >60.0 >60 mL/min [place] Comment on above: Source- MDRD equatio n with creatinine calibration to IDMS(NKDEP) eGFR not recommended for drug dose adjustment GFR/1.73 sq M predicted among blacks MDRD (S/P/Bld) [Vol rate/Area] mL/min/{1.73_m2} >60 mL/min [place] Glucose [Mass/Vol] 111 mg/dL High 70 - 100 mg/dL [place] Interpretation and review of laboratory results Abnormal [place] Potassium [Moles/Vol] 3.4 mmol/L Low 3.5 - 5.1 mmol/L [place] Protein [Mass/Vol] 7.5 g/dL 6.3 - 8.2 g/dL [place] Sodium [Moles/Vol] 139 mmol/L 135 - 145 mmol/L [place] Urea nitrogen [Mass/Vol] 13 mg/dL 7 - 20 mg/dL [place] Test Performed by [facility], [address] [place], [place] [address] [place] Hepatitis Panel, Acuteon HAV IgM IA Qn (S) NOT DETECTED Not-Detect ed [place], [place] Hep B Core Ab, IgM NOT DETECTED Not-Detec jae [place] Hepatitis B Surface Ag NOT DETECTED Not-D [place]ected [place] Hepatitis C Ab NOT DETECTED Not[place]Detected [place] Comment on above: Patients with DETECT ED Hepatitis C Ab results should have a new specimen submitted for supplemental testing with a Hepatitis C Quantitative RNA assay (viral load), if clinically indicated. Test Performed by [facility], [address] [place] [address] [place] HAV IgM IA Qn (S) NOT DETECTED Not-Detect ed [place], [place] Hep B Core Ab, IgM NOT DETECTED Not-Detec jae [place] Hepatitis B Surface Ag NOT DETECTED Not-D etected [place] Hepatitis C Ab NOT DETECTED Not-Detected [place] Comment on above: Patients with DETECT ED Hepatitis C Ab results should have a new specimen submitted for supplemental testing with a Hepatitis C Quantitative RNA assay (viral load), if clinically indicated. Test Performed by [facility], [facility] [employer] [place], [place] [id number] [place] [address] PROCALCITONINon 09-15-2018 Procalcitonin <0.10 <0.10 ng/mL [place] Sodium [Moles/Vol] See Below [place] Comment on above: PCT <0.50 = Low risk of severe sepsis and/or septic shock. PCT >2.00 = High risk of severe sepsis and/or septic shock. Test Performed by [facility], [facility] [employer] [place], [place] [id number] [place] [address] Troponinon 09-15-2018 Troponin I.cardiac [Mass/Vol] 0.012 ng/mL 0 - 0.034 ng/mL [place] Comment on above: < 0.034 = negative 0.034 0.120 = indeterminate > 0.120 = positive Test Performed by [facility], [address] Troponin I.cardiac [Mass/Vol] ng/mL 0 - 0.034 ng/mL [place] Comment on above: < 0.034 = negative 0.034 0.120 = indeterminate > 0.120 = positive Test Performed by [facility], [address] Troponin I.cardiac [Mass/Vol] ng/mL 0 - 0.034 ng/mL [place] Comment on above: < 0.034 = negative 0.034 0.120 = indeterminate > 0.120 = positive Test Performed by [facility], [address] [place] US ABDOMEN LIMITEDon 019 Patient Name: RICARDO VILLALPANDO ---Ultrasound--- Exam Date/Time 09/15/2018 16:42:00 EDT Exam US Abdomen Limited Ordering Physician DO MORTON LISA Accession Number [id number] CPT4 Codes 92203 () Reason For Exam elevated liver function [...] RISA Transcribed Date and Time: 09/15/2018 6:24 [facility], [place] [facility], [facility] Incoming Radiology Results From [facility] - 09/15/2018 6:24 PM EDT Patient Name: RICARDO VILLALPANDO ---Ultrasound--- Exam Date/Time 09/15/2018 16:42:00 EDT Exam US Abdomen Limited Ordering Physician DO MORTON LISA Accession Number [id number] CPT4 Codes 72535 () Reason For Exam elevated liver function [...] RISA Transcribed Date and Time: 09/15/2018 6:24 [place] Urinalysison 09-15-2018 Appearance (U) Clear [place] Comment on above: Reference Range: Jonathan ar Bilirubin Urine Negative mg/dL [place] Comment on above: Reference Range: Neg ative Color (U) Light-Yellow [place] Comment on above: Reference Range: Lt. Yellow Glucose, Ur Normal mg/dL [place] Comment on above: Reference Range: Nor mal (<70) Ketones Ql (U) Negative mg/dL [place] Comment on above: Reference Range: Neg ative LEUKOCYTES, UA Negative Xavier/uL [place] Comment on above: Reference Range: Neg ative Nitrite, Urine Negative [place] Comment on above: Reference Range: Neg ative Occult Blood,Urine Negative mg/dL [place] Comment on above: Reference Range: Neg ative pH (U) 6.5 [pH] [place] Protein (U) [Mass/Vol] Negative mg/dL [place] Comment on above: Reference Range: Neg ative Specific Riley, Urine 1.006 [place] Urobilinogen, Urine Normal mg/dL [place] Comment on above: Reference Range: Nor mal (0-1) Test Performed by [facility], [address] [place], [place], [place] [address] [place] XR CHEST STANDARD (2 VW)on 0 09-15-2018 [facility] Incoming Radiology Results From [facility] - 09/15/2018 5:37 PM EDT Patient Name: RICARDO VILLALPANDO ---Diagnostic Radiology--- Exam Date/Time 09/15/2018 15:22:39 EDT Exam CR Chest PA/LAT Ordering Physician DO MORTON LISA Accession Number [id number] CPT4 Codes 04279 () Reason For Exam elevated wbc Report [...] RISA Transcribed Date and Time: 09/15/2018 5:37 [place] Patient Name: RICARDO VILLALPANDO ---Diagnostic Radiology--- Exam Date/Time 09/15/2018 15:22:39 EDT Exam CR Chest PA/LAT Ordering Physician DO MORTON LISA Accession Number [id number] CPT4 Codes 06860 () Reason For Exam elevated wbc Report [...] RISA Transcribed Date and Time: 09/15/2018 5:37 [place] Vital Signs Date Time Vital Sign Value Performing Clinician Facility 10-05-2024 09:30-0400 Body temperature 97.2 [degF] Dr. Alisson Morton DO Work Phone: [facility] 10-05-2024 09:30-0400 Diastolic blood pressure 65 mm[Hg] Dr. Alisson Morton DO Work Phone: [facility] 10-05-2024 09:30-0400 Heart rate 74 /min Dr. Alisson Morton DO Work Phone: [facility] 10-05-2024 09:30-0400 Respiratory rate 18 /min Dr. Alisson Morton DO Work Phone: [facility] 10-05-2024 09:30-0400 SaO2% (BldA) [Mass fraction] 97 % Dr. Alisson Morton DO Work Phone: [facility] 10-05-2024 09:30-0400 Systolic blood pressure 151 mm[Hg] Dr. Alisson Morton DO Work Phone: [facility] 10-05-2024 08:07-0400 Body height 152.[address] Alisson Morton DO Work Phone: [facility] 10-05-2024 08:07-0400 Body mass index (BMI) [Ratio] 18.1 kg/m2 Dr. Alisson Morton DO Work Phone: [facility] 10-05-2024 08:07-0400 Body weight [address] Alisson Morton DO Work Phone: [facility] 08-27-2024 10:39-0400 Body height 149.[address] Alisson Morton DO Work Phone: [facility] 08-18-2024 14:34-0400 Body height 152.4 cm Toni Bey MD Work Phone: [facility] 08-18-2024 14:34-0400 Body mass index (BMI) [Ratio] 20.51 kg/m2 Toni Bey MD Work Phone: [facility] 08-18-2024 14:34-0400 Body weight 47.63 kg Toni Bey MD Work Phone: [place] 08-18-2024 14:34-0400 Diastolic blood pressure 78 mm[Hg] Toni Bey MD Work Phone: [place] 08-18-2024 14:34-0400 Heart rate 87 /min Toni Bey MD Work Phone: [place] 08-18-2024 14:34-0400 SaO2% (BldA) [Mass fraction] 97 % Toni Bey MD Work Phone: [place] 08-18-2024 14:34-0400 Systolic blood pressure 128 mm[Hg] Toni Bey MD Work Phone: [place] 08-18-2023 11:05-0400 Body height 152.4 cm Toni Bey MD Work Phone: [place] 08-18-2023 11:05-0400 Body mass index (BMI) [Ratio] 20.15 kg/m2 Toin Bey MD Work Phone: [place] 08-18-2023 11:05-0400 Body weight 46.81 kg Toni Bey MD Work Phone: [place] 08-18-2023 11:05-0400 Diastolic blood pressure 56 mm[Hg] Toni Bey MD Work Phone: [place] 08-18-2023 11:05-0400 Heart rate 62 /min Toni Bey MD Work Phone: [place] 08-18-2023 11:05-0400 Respiratory rate 16 /min Toni Bey MD Work Phone: [place] 08-18-2023 11:05-0400 SaO2% (BldA) [Mass fraction] 97 % Toni Bey MD Work Phone: [place] 08-18-2023 11:05-0400 Systolic blood pressure 106 mm[Hg] Toni Bey MD Work Phone: [place] 04-04-2023 11:16-0500 Body temperature 97.1 [degF] Dr. Alisson Morton Work Phone: [facility] 04-04-2023 11:16-0500 Diastolic blood pressure 56 mm[Hg] Dr. Alisson Morton Work Phone: [facility] 04-04-2023 11:16-0500 Heart rate 68 /min Dr. Alisson Morton Work Phone: [facility] 04-04-2023 11:16-0500 Respiratory rate 16 /min Dr. Alisson Morton Work Phone: [facility] 04-04-2023 11:16-0500 SaO2% (BldA) [Mass fraction] 98 % Dr. Alisson Morton Work Phone: [facility] 04-04-2023 11:16-0500 Systolic blood pressure 134 mm[Hg] Dr. Alisson Morton Work Phone: [facility] 04-04-2023 10:15-0500 Body height 152.[address] Alisson Morton Work Phone: [facility] 04-04-2023 10:15-0500 Body mass index (BMI) [Ratio] 20.3 kg/m2 Dr. Alisson Morton Work Phone: [facility] 04-04-2023 10:15-0500 Body weight 47.[address] Alisson Morton Work Phone: [facility] 01-04-2023 12:48-0500 Body temperature 98.4 [degF] Dr. Alisson Morton Work Phone: [facility] 01-04-2023 12:48-0500 Diastolic blood pressure 55 mm[Hg] Dr. Alisson Morton Work Phone: [facility] 01-04-2023 12:48-0500 Heart rate 81 /min Dr. Alisson Morton Work Phone: [facility] 01-04-2023 12:48-0500 Respiratory rate 16 /min Dr. Alisson Morton Work Phone: [facility] 01-04-2023 12:48-0500 SaO2% (BldA) [Mass fraction] 98 % Dr. Alisson Morton Work Phone: [facility] 01-04-2023 12:48-0500 Systolic blood pressure 115 mm[Hg] Dr. Alisson Morton Work Phone: [facility] 01-04-2023 11:46-0500 Body height 152.[address] Alisson Morton Work Phone: [facility] 01-04-2023 11:46-0500 Body mass index (BMI) [Ratio] 19.5 kg/m2 Dr. Alisson Morton Work Phone: [facility] 01-04-2023 11:46-0500 Body weight 45.[address] lAisson Morton Work Phone: [facility] 08-25-2022 10:12-0400 Body height 152.4 cm Toni Bey MD Work Phone: [facility] [employer] 08-25-2022 10:12-0400 Body mass index (BMI) [Ratio] 19.65 kg/m2 Toni Bey MD Work Phone: [facility] [employer] 08-25-2022 10:12-0400 Body weight 45.63 kg Toni Bey MD Work Phone: [facility] [employer] 08-25-2022 10:12-0400 Diastolic blood pressure 60 mm[Hg] Toni Bey MD Work Phone: [facility] [employer] 08-25-2022 10:12-0400 Heart rate 68 /min Toni Bey MD Work Phone: [facility] [employer] 08-25-2022 10:12-0400 Respiratory rate 16 /min Toni Bey MD Work Phone: [facility] [employer] 08-25-2022 10:12-0400 SaO2% (BldA) [Mass fraction] 95 % Toni Bey MD Work Phone: [facility] [employer] 08-25-2022 10:12-0400 Systolic blood pressure 110 mm[Hg] Toni Bey MD Work Phone: [facility] [employer] 06-16-2022 19:58-0400 Body temperature 97.39 [degF] Eric Cintron MD Work Phone: [facility] [employer] 06-16-2022 19:58-0400 Diastolic blood pressure 61 mm[Hg] Eric Cintron MD Work Phone: [facility] [employer] 06-16-2022 19:58-0400 Heart rate 77 /min Eric Cintron MD Work Phone: [facility] [employer] 06-16-2022 19:58-0400 Respiratory rate 18 /min Eric Cintron MD Work Phone: [facility] [employer] 06-16-2022 19:58-0400 SaO2% (BldA) [Mass fraction] 97 % Eric Cintron MD Work Phone: [facility] [employer] 06-16-2022 19:58-0400 Systolic blood pressure 123 mm[Hg] Eric Cintron MD Work Phone: [facility] [employer] 06-01-2022 23:41-0400 Diastolic blood pressure 59 mm[Hg] Dr. Alisson Morton Work Phone: [facility] 06-01-2022 23:41-0400 Heart rate 14 /min Dr. Alisson Morton Work Phone: [facility] 06-01-2022 23:41-0400 Respiratory rate 68 /min Dr. Alisson Morton Work Phone: [facility] 06-01-2022 23:41-0400 Systolic blood pressure 124 mm[Hg] Dr. Alisson Morton Work Phone: [facility] 06-01-2022 23:07-0400 SaO2% (BldA) [Mass fraction] 96 % Dr. Alisson Morton Work Phone: [facility] 06-01-2022 20:32-0400 Body mass index (BMI) [Ratio] 19.4 kg/m2 Dr. Ailsson Morton Work Phone: [facility] 06-01-2022 20:32-0400 Body weight 45.[address] Alisson Morton Work Phone: [facility] 06-01-2022 19:08-0400 Body height 152.[address] Alisson Morton Work Phone: [facility] 06-01-2022 19:08-0400 Body temperature 98 [degF] Dr. Alisson Morton Work Phone: [facility] 05-13-2022 14:19-0400 Body temperature 98.5 [degF] Dr. Alisson Morton Work Phone: [facility] 05-13-2022 14:19-0400 Diastolic blood pressure 57 mm[Hg] Dr. Alisson Morton Work Phone: [facility] 05-13-2022 14:19-0400 Heart rate 64 /min Dr. Alisson Morton Work Phone: [facility] 05-13-2022 14:19-0400 Respiratory rate 16 /min Dr. Alisson Morton Work Phone: [facility] 05-13-2022 14:19-0400 SaO2% (BldA) [Mass fraction] 98 % Dr. Alisson Morton Work Phone: [facility] 05-13-2022 14:19-0400 Systolic blood pressure 120 mm[Hg] Dr. Alisson Morton Work Phone: [facility] 05-12-2022 14:31-0400 Body height 149.[address] Alisson Morton Work Phone: [facility] 05-12-2022 14:31-0400 Body weight 44.[address] Alisson Morton Work Phone: [facility] 05-12-2022 12:18-0400 Body mass index (BMI) [Ratio] 19.7 kg/m2 Dr. Alisson Morton Work Phone: [facility] 02-23-2022 08:20-0500 Diastolic blood pressure 60 mm[Hg] Mykel Powell MD Work Phone: [facility] 02-23-2022 08:20-0500 Heart rate 84 /min Mykel Powell MD Work Phone: [facility] 02-23-2022 08:20-0500 Respiratory rate 18 /min Mykel Powell MD Work Phone: [place] 02-23-2022 08:20-0500 SaO2% (BldA) [Mass fraction] 100 % Mykel Powell MD Work Phone: [place] 02-23-2022 08:20-0500 Systolic blood pressure 113 mm[Hg] Mykel Powell MD Work Phone: [place] 02-23-2022 07:31-0500 Body height 152.4 cm Mykel Powell MD Work Phone: [place] 02-23-2022 07:31-0500 Body mass index (BMI) [Ratio] 18.94 kg/m2 Mykel Powell MD Work Phone: [employer] 02-23-2022 07:31-0500 Body temperature 97.3 [degF] Mykel Powell MD Work Phone: [employer] 02-23-2022 07:31-0500 Body weight 44 kg Mykel Powell MD Work Phone: [employer] 06-04-2020 11:08-0400 Diastolic blood pressure 50 mm[Hg] Adela Cundra PA-C [facility] Phone[facility] Work Phone: 06-04-2020 11:08-0400 Heart rate 73 /min Adela Cundra PA-C Work Phone: [facility] Work Phone: 06-04-2020 11:08-0400 Respiratory rate 15 /min Adela Cundra PA-C Work Phone: [facility] Work Phone: 06-04-2020 11:08-0400 SaO2% (BldA) [Mass fraction] 100 % Adela Cundra PA-C Work Phone: [employer] Work Phone: 06-04-2020 11:08-0400 Systolic blood pressure 103 mm[Hg] Adela Cundra PA-C Work Phone: [employer] Work Phone: 11-09-2019 11:21-0400 BP Diastolic 62 mm[Hg] [facility] [place] 11-09-2019 11:21-0400 BP Systolic 121 mm[Hg] Zoe [employer] [facility] [place] , [place] 11-09-2019 11:21-0400 Pulse (Heart Rate) 81 /min [facility], [place] 11-09-2019 11:21-0400 Pulse Oximetry 100 % Zoe [employer] [facility] , [place] 11-09-2019 11:21-0400 Respiratory Rate 16 /min [facility] [facility] [place] 03-07-2019 12:11-0500 Diastolic blood pressure 65 mm[Hg] [...] Phone: 09-21-2018 14:16-0400 Body Temperature 97.59 [degF] [facility], [place] 09-21-2018 14:16-0400 BP Diastolic 74 mm[Hg] [facility] , [place] 09-21-2018 14:16-0400 BP Systolic 141 mm[Hg] [facility] , [place] 09-21-2018 14:16-0400 Pulse (Heart Rate) 74 /min [facility], [place] 09-21-2018 14:16-0400 Pulse Oximetry 98 % [facility] , [place] 09-21-2018 14:16-0400 Respiratory Rate 16 /min [facility], [place] 09-17-2018 16:01-0400 Height 160 cm [facility] [place] 09-15-2018 13:00-0400 BMI (Body Mass Index) 21.72 kg/m2 Alisson [facility], [place] 09-15-2018 13:00-0400 Body weight 55.61 kg [facility] [place] , [place] Encounters Encounter Date Encounter Type Care Provider Facility Start: 12-14-2024 ambulatory Alisson Janie Praveen Facility :[facility] Start: 10-10-2024 End: 10-10-2024 ambulatory Alisson Janie Praveen Facility:[facility] Start: 10-05-2024 Non-patient / Non-visit Roque Daniel nd, DO -[facility] Start: 10-05-2024 End: 10-05-2024 Admission to same day surgery center Roque Herrera DO -Endoscopy Work Phone: Start: 10-05-2024 End: 10-05-[address] Alisson Morton DO Work Phone: -Endoscopy Start: 09-14-2024 ambulatory Alisson Morton Facility :[facility] Start: 09-14-2024 Registered Referred Anabel Duvall MD [facility] Start: 08-27-2024 End: 08-27-[address] 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 Alisson Morton DO Work Phone: [facility] Start: 08-18-2024 [facility] Start: 08-17-2024 End: 08-18-2024 ambulatory Anabel WALSH Facility:[facility] Start: 08-09-2024 [facility] Start: 08-08-2024 End: 08-09-[address] Alisson Morton DO Work Phone: [facility] Start: 08-08-2024 End: 08-08-[address] Anabel Duvall MD -[facility] Work Phone: Start: 07-25-2024 End: 07-25-[address] Alisson Morton DO Work Phone: [facility] Start: 07-25-2024 End: 07-25-2024 Patient encounter procedure Fallon Mcclendon CLASSIFICATION CONTROL CLERK-C -[facility] Work Phone: Start: 07-17-2024 End: 07-17-[address] Alisson Morton DO Work Phone: [facility] Start: 07-17-2024 End: 07-17-2024 Patient encounter procedure Osmar Mendoza CLASSIFICATION CONTROL CLERK-C -[facility] Work Phone: Start: 06-20-2024 End: 06-20-[address] lAisson Morton DO Work Phone: [facility] Start: 06-20-2024 End: 06-20-[address] Anabel Duvall MD -[facility] Work Phone: Start: 06-12-2024 End: 06-12-2024 Departed Referred Anabel CabralSaul Bryan Start: 06-12-2024 Registered Referred Anabel CabralSaul Bryan Start: 06-12-2024 End: 06-12-2024 ambulatory Chinoolesya Duvall OLS Facility:[facility] Start: 05-09-2024 End: 05-09-[address] Alisson Morton DO Work Phone: [facility] Work Phone: Start: 05-09-2024 End: 05-09-[address] Anabel Duvall MD -[facility] Work Phone: Start: 04-10-2024 End: 04-10-2024 ambulatory Fallon Mcclendon CLASSIFICATION CONTROL CLERK Facility:[facility] Start: 04-10-2024 End: 04-10-2024 Patient encounter procedure Fallon Mcclendon CLASSIFICATION CONTROL CLERK-C -[facility] Work Phone: Start: 03-21-2024 End: 03-21-2024 ambulatory Chinojulijono Eloina Facility:[facility] Start: 03-21-2024 End: 03-21-[address] Anabel Duvall MD -[facility] Work Phone: Start: 03-16-2024 ambulatory Anabel WALSH Facility:[facility] Start: 03-16-2024 [facility] Start: 02-10-2024 End: 02-10-2024 ambulatory Alisson Morton Facility:[facility] Start: 01-25-2024 End: 01-25-2024 ambulatory Alisson Morton Facility:[facility] Start: 12-20-2023 End: 12-20-2023 Subsequent hospital visit by physician Alisson Morton DO Work Phone: [facility] MRI Comment on above: Other specified dise ases of liver Start: 12-20-2023 End: 12-20-2023 ambulatory ALISSON MORTON [facility] Start: 12-01-2023 End: 03-01-2024 Transcribe Orders Alisson Morton DO Work Phone: [facility] Central Scheduling Comment on above: Other specified dise ases of liver (Primary Dx) Start: 11-11-2023 End: 11-11-2023 ambulatory ALISSON MORTON [facility] Start: 11-11-2023 End: 11-11-2023 Subsequent hospital visit by physician Alisson Morton DO Work Phone: [facility] Comment on above: Other specified abno rmal findings of blood chemistry Start: 10-26-2023 End: 01-25-2024 Transcribe Orders Alisson Morton DO Work Phone: [facility] Comment on above: Other specified abno rmal findings of blood chemistry (Primary Dx) Start: 08-18-2023 End: 08-18-2023 Office outpatient visit 25 minutes Toni Bey MD Work Phone: [facility] Comment on above: 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 (Primary Dx); Persistent atrial fibrillation (HCC); Mixed hyperlipidemia; Vascular dementia, unspecified dementia severity, unspecified whether behavioral, psychotic, or mood disturbance or anxiety (HCC) Start: 07-23-2023 End: 07-23-2023 Telephone encounter Toni Bey MD Work Phone: [facility] Comment on above: Cardiac Clearance Start: 07-20-2023 ambulatory Sharmila Connell RN [facility] Clinical Communication Start: 07-20-2023 Patient encounter procedure Sharmila Connell RN [facility] Clinical Communication Start: 05-11-2023 End: 08-10-2023 Transcribe Orders Brittany Mitchell CONTINUOUS MINING MACHINE LODE MINER - OPERATING ROOM SCHEDULER Work Phone: [facility] Comment on above: Dorsalgia, unspecifi ed (Primary Dx); Unspecified urinary incontinence Start: 04-10-2023 Refill Yeny benjamin CONTINUOUS MINING MACHINE LODE MINER - OPERATING ROOM SCHEDULER Work Phone: [facility] Start: 04-04-2023 End: 04-04-2023 Emergency department patient visit Dr. Alisson Morton Work Phone: [facility] Work Phone: Start: 04-04-2023 End: 04-04-2023 Patient encounter procedure Billie Franklin LEVINOPERATING ROOM SCHEDULER Work Phone: [facility] Comment on above: Injury of head, init ial encounter (Primary Dx) Start: 03-04-2023 End: 03-04-[address] Alsison Morton Work Phone: [facility] Work Phone: Start: 01-04-2023 Non-patient / Non-visit Dr. Joana Morton Work Phone: [facility] Start: 01-04-2023 End: 01-04-2023 Admission to same day surgery center Dr. Alisson Morton Work Phone: [facility]-Endoscopy Work Phone: Start: 01-04-2023 End: 01-04-[address] Alisson Morton Work Phone: [facility] Work Phone: Start: 12-09-2022 Telephone encounter Toni sánchez MD Work Phone: [place] [facility] Cardiology Comment on above: Cardiac Clearance Start: 10-28-2022 End: 10-28-2022 Subsequent hospital visit by physician Alisson Morton DO Work Phone: [facility] Comment on above: Other specified abno rmal findings of blood chemistry Start: 10-23-2022 Transcribe Orders Alisson Myers Work Phone: [facility] Comment on above: Other specified abno rmal findings of blood chemistry (Primary Dx) Start: 10-21-2022 End: 10-21-[address] Alisson Morton Work Phone: [facility] Work Phone: Start: 10-21-2022 End: 10-21-[address] Alisson Morton Work Phone: [facility]-Physical Therapy Work Phone: Start: 10-10-2022 Refill Yeny benjamin CONTINUOUS MINING MACHINE LODE MINER - OPERATING ROOM SCHEDULER Work Phone: [facility] Start: 09-24-2022 End: 09-24-2022 ambulatory Cherylabigail Lopez PA-C Work Phone: [facility] Laboratory Comment on above: Arrived Hyperlipidemia, unsp ecified (Primary Dx) Start: 09-14-2022 Transcribe Orders Toni Bey MD Work Phone: 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 Alisson carlos Work Phone: [facility] Start: 06-30-2022 End: 06-30-[address] Alisson Morton Work Phone: [facility] Work Phone: Start: 06-26-[address] Alisson carlos Work Phone: [facility] Start: 06-25-[address] Alisson carlos Work Phone: [facility] Start: 06-24-2022 End: 06-24-[address] Alisson Morton Work Phone: [facility] Work Phone: Start: 06-13-2022 End: 06-16-2022 Evaluation and management of inpatient Eric Cintron MD Work Phone: [facility] 2E TELEMETRY Comment on above: Anemia (Primary Dx); Hyponatremia; Hepatitis Start: 06-13-2022 End: 06-13-2022 Subsequent hospital visit by physician Alisson Morton DO Work Phone: [facility] Vascular Lab Comment on above: Other specified symp toms and signs involving the circulatory and respiratory systems Start: 06-01-2022 End: 06-02-2022 Emergency department patient visit Dr. Alisson Morton Work Phone: [facility] Start: 05-27-2022 Transcribe Orders Alisson sánchez DO Work Phone: [facility] Central Scheduling Comment on above: Other specified symp toms and signs involving the circulatory and respiratory systems (Primary Dx) Start: 05-13-2022 Non-patient / Non-visit Dr. Joana Morton Work Phone: [facility] Start: 05-13-2022 End: 05-13-2022 Non-patient / Non-visit Dr. Alisson Morton Work Phone: [facility] Inpatient Physicians Start: 05-12-2022 Non-patient / Non-visit Dr. Joana Morton Work Phone: [facility] Start: 05-12-2022 Non-patient / Non-visit Dr. Joana Morton Work Phone: [facility] In[facility] Phys[facility] Start: 05-12-2022 End: 05-13-2022 Evaluation and management of inpatient [facility] Start: 05-12-2022 End: 05-13-[address] Alisson Morton Work Phone: [facility] Work Phone: Start: 02-27-2022 Telephone encounter Gin Finn CONTINUOUS MINING MACHINE LODE MINER - OPERATING ROOM SCHEDULER Work Phone: [facility] Comment on above: [...] (HCC) Start: 05-09-2021 End: 05-09-2021 Discharged Recurring [facility] Start: 02-10-2021 End: 02-10-2021 Discharged Recurring [facility] Start: 08-20-2020 End: 08-20-2020 Subsequent hospital visit by physician Alisson Morton DO Work Phone: [facility] Comment on above: Abnormal results of liver function studies Start: 06-04-2020 End: 06-04-2020 Subsequent hospital visit by physician Adela Reeves PA-C Work Phone: [facility] Comment on above: Left thyroid nodule Start: 05-21-2020 End: 05-21-2020 Subsequent hospital visit by physician Zoe Wyatt Work Phone: [facility] Comment on above: Thyroid nodule Start: 02-07-2020 End: 02-07-2020 Subsequent hospital visit by physician Alisson Morton Work Phone: [facility] Start: 11-09-2019 End: 11-09-2019 Subsequent hospital visit by physician Zoe Wyatt Work Phone: [facility] Comment on above: Thyroid nodule Start: 10-18-2019 End: 10-18-2019 Subsequent hospital visit by physician Alisson Morton Work Phone: [facility] Comment on above: Nontoxic single thyr oid nodule Start: 08-21-2019 End: 08-21-2019 Subsequent hospital visit by physician Yeny Huntley Work Phone: [facility] Laboratory Comment on above: 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; Dyslipidemia Start: 04-04-2019 End: 04-04-2019 Subsequent hospital visit by physician Alisson Morton Work Phone: [facility] Comment on above: Arrived Start: [...] management of inpatient Alisson Morton Work Phone: [facility] 4S TELEMETRY Procedures Date Procedure Procedure [...] 1996 panel - Serum or Plasma Sharmila Ko RN Start: 09-14-2022 Basic metabolic panel calcium [...] & neck real time imge docm Alisson M Esterle Work Phone: Start: 08-21-2019 Basic metabolic panel calcium total Yeny Mirna Huntley Work Phone: Start: 08-21-2019 Blood count complete automated Yeny Mirna Huntley Work Phone: Start: 08-21-2019 Hepatic function panel Yeny Mirna Huntley Work Phone: Start: 04-04-2019 CT ABDOMEN PELVIS W CONTRAST Alisson M Sandi rle Work Phone: Start: 04-04-2019 Ct thorax w/contrast material Alisson M Est erle Work Phone: Start: 03-31-2019 Creatinine blood Alisson M Esterle Work Phone: Start: 03-07-2019 HM [...] Phone: Comment on above: Test Performed by [employer], [address] [place] [id number] Start: 02-15-2019 Cmbn ndsc cathj biliary&pncrtc ductal sys rs&i Gtz Jose Smiley MD Work Phone: Start: 02-15-2019 Blood [...] Start: 02-11-2019 PROTIME/INR & PTT Gem A Antwerp DO Work Phone: Start: 02-11-2019 Us abdominal [...] 09-16-2018 Blood count complete automated Alisson M Layla terle Work Phone: Start: 09-15-2018 Assay of troponin quantitative Alisson M Es terle Work Phone: Start: 09-15-2018 Culture bacterial quanttative colony count urine Alisson Lima Esterle Work Phone: Start: 09-15-2018 Urnls dip stick/tablet rgnt auto w/o microscopy Alisson Lima Esterle Work Phone: Start: 09-15-2018 Acute hepatitis panel Siobhan Constantinojeovanysmitha Work Phone: Start: 09-15-2018 Culture bacterial blood aerobic w/id isolates Alisson Lima Esterle Work Phone: Start: 09-15-2018 Us abdominal real time w/image limited Alisson Lima Esterle Work Phone: Start: 09-15-2018 Assay of troponin quantitative Alisson Lima Es terle Work Phone: Start: 09-15-2018 Culture bacterial blood aerobic w/id isolates Alisson M Esterle Work Phone: Start: 09-15-2018 Radiologic exam chest 2 views Alisson Lima Est erle Work Phone: Start: 09-15-2018 [...] artery disease H/O heart artery stent Sonny Montgaue MD Work Phone: SARS-CoV-2 & FLU Antigen (Rapid) Dr. Alisson Morton Work Phone: Plan of Treatment Date Care Activity Detail Author Start: 12-01-2029 DTaP/Tdap/Td vaccine (2 - Td or Tdap) DTaP/Tdap/Td vaccine (2 - Td or Tdap) [facility] Start: 12-01-2029 DTaP/Tdap/Td vaccine (2 - Td) DTaP/Tdap/Td vaccine (2 - Td) [facility] Work Phone: Start: 12-01-2029 DTaP/Tdap/Td Vaccines (2 - Td or Tdap) DTaP/Tdap/Td Vaccines (2 - Td or Tdap) [place] Start: 09-25-2027 Lipid panel Lipid Panel [place] Start: 09-24-2025 Diabetes Screening Diabetes Screening [facility] Start: 08-20-2025 End: 08-20-2025 Patient encounter procedure 08/20/2025 2:00 PM EDT Office Visit [facility] [address] [phone] Toni Bey MD [address] [address] [facility] Start: 10-09-2024 Influenza vaccination Influenza Vaccine (#1) [place] Start: 10-05-2024 Patient discharge [facility] Start: 08-18-2024 End: 08-18-2024 Patient encounter procedure [facility] Start: 08-17-2024 [facility] Start: 07-10-2025 Bacteria identified in Urine by Culture Urine Culture [facility] Start: 10-10-2023 COVID-19 Vaccine ( season) COVID-19 Vaccine () [place] Start: 10-10-2023 COVID-19 Vaccine () COVID-19 Vaccine () [place] Start: 10-10-2023 Influenza vaccination [place] Start: 09-25-2023 Creatinine measurement Creatinine Level [place] Start: 09-25-2023 Diabetes: Estimated Glomerular Filtration Rate for Kidney Health Diabetes: Estimated Glomerular Filtration Rate for Kidney Health [place] Start: 09-25-2023 Potassium measurement Potassium Level [place] Start: 08-18-2023 End: 08-18-2023 Patient encounter procedure 08/18/2023 11:00 AM EDT Office Visit [facility] [address] [phone] Toni Bey MD [address] [facility] [address] [place] [address] [facility] Start: 08-06-2023 Lipid screen Lipid screen [place], [place] Start: 06-04-2023 Medicare Annual Wellness (AWV) Medicare Annual Wellness (AWV) [place] Start: 04-04-2023 [facility] Start: 02-08-2023 Advance Directive Discussion Advance Directive Discussion [facility] Start: 02-08-2023 Depression Assessment Depression Assessment [facility] Start: 01-04-2023 Egd insert guide wire dilator passage esophagus EGD GUIDE WIRE INSERTION [facility] Start: 01-04-2023 Egd transoral biopsy single/multiple EGD BIOPSY SINGLE/MULTIPLE [facility] Start: 01-04-2023 Patient discharge [facility] Start: 10-09-2022 COVID-19 Vaccine ( season) COVID-19 Vaccine () [place] Start: 10-09-2022 Influenza vaccination Influenza Vaccine (#1) [place] Start: 08-25-2022 End: 08-25-2022 Patient encounter procedure 08/25/2022 10:00 AM EDT Office Visit [facility] [address] [facility] [address] [place] [phone] Toni Bey MD [address] [facility] [address] [place] [address] [facility] Start: 06-01-2022 [facility] Start: 05-14-2022 Blood chemistry [facility] Start: 05-13-2022 Patient discharge [facility] Start: 05-12-2022 Catheterization of vein [facility] Start: 05-12-2022 Care regimes management [facility] Start: 05-12-[address] [facility] Start: 05-12-2022 [facility] Start: 05-12-2022 Egd insert guide wire dilator passage esophagus EGD GUIDE WIRE INSERTION [facility] Start: 05-12-2022 Egd transoral biopsy single/multiple EGD BIOPSY SINGLE/MULTIPLE [facility] Start: 05-12-2022 Application of intermittent pneumatic compression device [facility] Start: 05-12-2022 Ambulation without limitation [facility] Start: 05-12-2022 Assessment of risk of venous thromboembolism [facility] Start: 05-12-2022 Insertion of catheter into peripheral vein [facility] Start: 05-12-2022 Providing care according to standard [facility] Start: 05-12-2022 Referral to gastroenterology service [facility] Start: 05-12-2022 [facility] Start: 05-12-2022 Following clinical pathway protocol [facility] Start: 05-12-2022 Admission procedure [facility] Start: 05-12-2022 Patient referral to dietitian [facility] Start: 03-13-2022 End: 03-13-2022 Patient encounter procedure 03/13/2022 Office Visit Gastroenterology Gin Finn, CONTINUOUS MINING MACHINE LODE MINER - OPERATING ROOM SCHEDULER [address] [facility] [address] [place] [address] [facility] Start: 02-26-2022 Hemoglobin A1c measurement Diabetes: Hemoglobin A1C [place] Start: 02-23-2022 End: 02-23-2022 Esophagogastroduodenoscopy transoral diagnostic EGD DIAGNOSTIC Dysphagia 02/23/2022 7:42 AM EST [facility] Start: 12-30-2021 Creatinine measurement Creatinine monitoring [facility] Start: 12-30-2021 Potassium monitoring Potassium monitoring [facility] Start: 11-08-2021 Lipid panel [facility] Start: 01-10-2021 COVID-19 Vaccine (4 - Booster for Pfizer series) COVID-19 Vaccine (4 - Booster for Pfizer series) [place] Start: 01-10-2021 COVID-19 Vaccine (4 - Pfizer series) COVID-19 Vaccine (4 - Pfizer series) [place] Start: 10-17-2020 [facility] [place] Start: 10-09-2020 Influenza vaccination Flu vaccine (#1) [facility] Work Phone: Start: 08-20-2020 Creatinine measurement [facility] [place] Start: 08-20-2020 Potassium monitoring Potassium monitoring [facility] [employer] [place] Start: 06-10-2020 End: 06-10-2020 Patient encounter procedure 06/10/2020 Office Visit General Surgery Kiko Bowie MD [address] [place], [place] [id number] Gen Surg - [facility] Start: 05-27-2020 End: 05-27-2020 Office Visit 05/27/2020 Office Visit General Surgery Kiko Bowie MD [address] [place] [address] [phone] Gen Surg - [facility] Start: 03-31-2020 Creatinine measurement Creatinine [facility], [place] Start: 03-31-2020 Creatinine monitoring Creatinine monitoring [facility] [place] Start: 02-18-2020 Creatinine monitoring [facility] Work Phone: Start: 02-18-2020 Potassium monitoring Potassium monitoring [facility] Work Phone: Start: 11-25-2019 Pneumococcal Vaccine: 50+ Years (2 of 2 - PCV) Pneumococcal Vaccine: 50+ Years (2 of 2 - PCV) [place] Start: 11-25-2019 Pneumococcal Vaccine: 65+ (2 of 2 - PCV) Pneumococcal Vaccine: 65+ (2 of 2 - PCV) [facility] Start: 11-25-2019 Pneumococcal Vaccine: 65+ Years (2 - PCV) Pneumococcal Vaccine: 65+ Years (2 - PCV) [place] Start: 11-25-2019 Pneumococcal Vaccine: 65+ Years (2 of 2 - PCV) Pneumococcal Vaccine: 65+ Years (2 of 2 - PCV) [place] Start: 10-10-2019 Influenza vaccination Flu vaccine (#1) [place], [place] Start: 09-22-2019 Creatinine monitoring Creatinine monitoring [place], [place] Start: 09-22-2019 Potassium monitoring Potassium monitoring [place], [place] Start: 08-06-2019 Lipid panel Lipid screen [place], [place] Start: 08-06-2019 Lipid screen Lipid screen [facility] Work Phone: Start: 05-25-2019 End: 05-25-2019 Office Visit 05/25/2019 Office Visit Cardiology Toni Bey MD [address] [facility] [address] [place] [address] [phone] [facility] [place] Start: 04-04-2019 Hospital Encounter 04/04/2019 Hospital Encounter Radiology Alisson Morton, DO [address] [place] [address] [phone] Start: 10-09-2018 Influenza vaccination Flu vaccine (#1) [place] Start: 10-04-2018 End: 10-04-2018 Office Visit 10/04/2018 Office Visit Cardiology Yeny Huntley, CONTINUOUS MINING MACHINE LODE MINER - OPERATING ROOM SCHEDULER [address] [place] [address] [phone] [facility] Start: 08-05-2018 Annual Wellness Visit (AWV) Annual Wellness Visit (AWV) [facility] Start: 2017 RSV Immunization for Adults (1 - 1-dose 75+ series) RSV Immunization for Adults (1 - 1-dose 75+ series) [place] Start: 10-16-2007 Pneumococcal 65+ years Vaccine (1 of 2 - PCV13) Pneumococcal 65+ years Vaccine (1 of 2 - PCV13) [place], [place] Start: 2005 Annual Wellness Visit (AWV) Annual Wellness Visit (AWV) [place], [place] Start: 2002 Hepatitis B Vaccines (1 of 3 - Risk 3-dose series) Hepatitis B Vaccines (1 of 3 - Risk 3-dose series) [place] Start: 2002 RSV Immunization aged 60 or older (1 - 1-dose 60+ series) RSV Immunization aged 60 or older (1 - 1-dose 60+ series) [place] Start: 1992 Colon cancer screen colonoscopy Colon cancer screen colonoscopy [place], [place] Start: 1992 Shingles Vaccine (1 of 2) Shingles Vaccine (1 of 2) [facility] Start: 1992 Shingrix Vaccine (1 of 2) Shingrix Vaccine (1 of 2) [facility] Start: 1992 Zoster Vaccines (1 of 2) Zoster Vaccines (1 of 2) [place] Start: 1961 DTaP/Tdap/Td vaccine (1 - Tdap) DTaP/Tdap/Td vaccine (1 - Tdap) [place], [place] Start: 1961 Hepatitis A Vaccines (1 of 2 - Risk 2-dose series) Hepatitis A Vaccines (1 of 2 - Risk 2-dose series) [place] Start: 1961 Urine microalbumin profile DTaP,Tdap,Td Vaccine (1 - Tdap) [facility] Start: 1961 Urine screening for protein Diabetes: Urine Protein Screening [place] Start: 1960 Diabetes: Urine Albumin-Creatinine Ratio for Kidney Health Diabetes: Urine Albumin-Creatinine Ratio for Kidney Health [place] Start: 1960 Hepatitis C screening Hepatitis C Screening [place] Start: 1954 Depression Monitoring Depression Monitoring [place] Start: 1954 Depression Screen Depression Screen [facility] Start: 1954 Depression Screening Depression Screening [place] Start: 1953 DTaP/Tdap/Td vaccine (1 - Tdap) DTaP/Tdap/Td vaccine (1 - Tdap) [facility] Work Phone: Start: 1952 Diabetic foot examination Diabetes: Foot Exam [place] Start: 1952 Glaucoma screening Diabetes: Retinopathy Screening [place] Start: 1952 Preventive dental service Diabetes: Dental Exam [place] Start: 10-16-1943 Hepatitis A Vaccines (1 of 2 - Risk 2-dose series) Hepatitis A Vaccines (1 of 2 - Risk 2-dose series) [place] Start: 1942 Echocardiography Echocardiogram [place] Start: 1942 Hemoglobin A1c measurement Diabetes: Hemoglobin A1C [place] Start: 1942 Hepatitis B Vaccines (1 of 3 - 3-dose series) Hepatitis B Vaccines (1 of 3 - 3-dose series) [place] Start: 1942 Medicare Annual Wellness (AWV) Medicare Annual Wellness (AWV) [place] Start: 1942 Screening for osteoporosis Bone Density Scan [place] Bacteria identified in Blood by Culture Blood culture #1 - Suspected Infection Microbiology STAT 06/13/2022 2:43 PM EDT [place] Bacteria identified in Blood by Culture Blood culture #1 - Suspected Infection Microbiology STAT 06/13/2022 3:49 PM EDT [place] Bacteria identified in Urine by Culture Urine Culture [facility] End: 03-07-2019 Blood glucose - POCT Blood glucose - POCT Point of Care Testing Routine One Time for 1 Occurrences starting 03/07/2019 until 03/07/2019 [facility] Work Phone: Comment on above: One Time for 1 Occurrences starting 02/09 until 03/07/2019 Comprehensive metabo lic 2000 panel Comprehensive Metabolic Panel Lab Routine Daily until discontinued starting 09/17/2018, 1 completed [facility], [place] Comment on above: Daily until discontinued starting 2018, 1 completed End: 05-13-2021 CT HEAD WO CONTRAST [facility] Work Phone: Comment on above: Once for 1 Occurrences starting 05/14/19 until 05/13/2021 End: 06-13-2022 Hemoglobin.gastrointestinal.low er [Presence] in Stool by Immunoassay --1st specimen [facility] [employer] [facility] Work Phone: Comment on above: STAT (Lab) for 1 Occurrences starting until 06/13/2022 Once (Lab) for 1 Occ urrences starting 06/13/2022 until 06/13/2022 Initiate Oxygen Ther apy Protocol [facility], [place] Comment on above: Daily until discontinued starting 2018 Daily until disconti nued starting 02/11/2019 End: 12-20-2023 MR Abdomen WO and W contrast IV [facility] [employer] [facility] Work Phone: Comment on above: Once for 1 Occurrences starting 12/20/19 24 until 12/20/2023 OUTSIDE PROCEDURE SCAN OUTSIDE P ROCEDURE SCAN Procedures Ordered: 06/13/2022 [facility] Comment on above: Ordered: 06/13/2022 OUTSIDE PROCEDURE SCAN OUTSIDE P ROCEDURE SCAN Procedures Ordered: 09/24/2022 [facility] Comment on above: Ordered: 09/24/2022 OUTSIDE PROCEDURE SCAN OUTSIDE P ROCEDURE SCAN Procedures Ordered: 10/27/2022 [facility] Comment on above: Ordered: 10/27/2022 Patient Education [facility] Work Phone: Patient referral [facility] Work Phone: End: 03-07-2019 Pulse Oximetry Spot Check Pulse Oximetry Spot Check Respiratory Care Routine One Time for 1 Occurrences starting 03/07/2019 until 03/07/2019 [facility] Work Phone: Comment on above: One Time for 1 Occurrences starting 02/09 until 03/07/2019 End: 09-21-2018 Surgical Pathology Surgical Pathology Lab Routine Once for 1 Occurrences starting 09/21/2018 until 09/21/2018 [facility] [place] Comment on above: Once for 1 Occurrences starting 09/22/19 19 until 09/21/2018 Surgical Pathology [facility] [place] End: 02-15-2019 Surgical Pathology Surgical Pathology Lab Routine Once for 1 Occurrences starting 02/15/2019 until 02/15/2019 [facility] Work Phone: Comment on above: Once for 1 Occurrences starting 02/15/19 20 until 02/15/2019 Tissue exam [facility] [employer] Work Phone: Comment on above: Release Upon Ordering for 1 Occurrences starting 02/23/2022, [address] [facility] End: 10-28-2022 US Abdomen [facility] [employer] [facility] Work Phone: Comment on above: Once for 1 Occurrences starting 10/29/19 23 until 10/28/2022 End: 05-21-2020 US Thyroid US Thyroid Imaging Routine Thyroid nodule 1 Occurrences starting 05/21/2020 until 05/21/2020 [facility] Work Phone: Comment on above: 1 Occurrences starting 05/21/2020 until 05/21/2020 US THYROID US THYROID Imagi ng Routine Thyroid nodule 05/21/2020 1:55 PM EDT [facility] Work Phone: Immunizations Immunization Date Immunization Notes Care Provider [facility] 01-11-2023 influenza virus vaccine, unspecified formulation Alisson Morton DO Work Phone: [place] 12-23-2021 Influenza, high dose seasonal Dr. Alisson Morton DO Work Phone: [facility] 12-23-2021 influenza, high dose seasonal, preservative-free Dr. Alisson Morton Work Phone: [facility] 12-23-2021 influenza virus vaccine, unspecified formulation Toni Bey MD Work Phone: [place] 11-15-2020 Pfizer SARS-CoV-[address] Alisson Morton Work Phone: [facility] 05-03-2020 Pfizer SARS-CoV-[address] Alisson Morton Work Phone: [facility] 04-09-2020 Pfizer SARS-CoV-[address] Alisson Morton Work Phone: [facility] Payers Date Payer Category Payer Self-pay [id number] 2021 Medicare supplementa l policy (as second payer) O MEDICARE SUPPLEMENT [id number] 2021 Unknown [id number] 2015 Unknown [id number] 2015 Unknown [employer] M [employer] [address] [id number] 2015-Present [phone] [address] [place] [id number] 2015 Unknown [id number] 2014 Medicare MEDICARE MEDICAR E PART A AND B xxxxxxxxxxx 2014-Present [phone] [place] [address] xxxxxxxxxxx [id number] 2014 Medicare MEDICARE MEDICAR E PART A AND B [id number] 2014-Present [phone] [place] [address] [id number] 2007 Medicare [id number] .[id number] 2007 Medicare [id number] .[id number] Unknown [id number] 2.16.840.1.259751.3.579.2 .462 Unknown [id number] 2.16.840.1.596721.3.579.2 .462 Unknown [id number] 2.16.840.1.550368.3.579.2 .462 Unknown [id number] 2.16.840.1.629966.3.579.2 .462 Unknown [id number] 2.16.840.1.976862.3.579.2 .462 Unknown [id number] 2.16.840.1.782628.3.579.2 .462 Unknown [id number] 2.16.840.1.153316.3.579.2 .462 Unknown [id number] 2.16.840.1.233671.3.579.2 .462 Unknown [id number] 2.16.840.1.906246.3.579.2 .462 Unknown [id number] 2.16.840.1.069894.3.579.2 .462 Unknown [id number] 2.16.840.1.647496.3.579.2 .462 Unknown [id number] 2.16.840.1.303247.3.579.2 .462 Unknown [id number] 2.16.840.1.616736.3.579.2 .462 Unknown [id number] 2.16.840.1.675239.3.579.2 .462 Unknown [id number] 2.16.840.1.029435.3.579.2 .462 Unknown [id number] 2.16.840.1.265017.3.579.2 .462 Unknown [id number] 2.16.840.1.279376.3.579.2 .462 Unknown [id number] 2.16.840.1.212610.3.579.2 .462 Unknown [id number] Unknown [id number] Social History Date Type Detail Facility Start: 09-21-2018 End: 10-05-2024 Tobacco smoking status NHIS Never smoker [facility] Start: 09-21-2018 End: 08-18-2024 Alcohol intake Not Currently [facility] Start: 1940 Sex Assigned At Not [facility] Start: 03-07-2019 End: 11-05-2020 Alcohol intake Ex-drinker (finding) [facility] Work Phone: Start: 08-04-2018 End: 03-07-2019 Tobacco use and exposure [facility] Start: 1940 Sex Assigned At Female [facility] Work Phone: Start: 02-13-2022 End: 10-28-2022 Exposure to SARS-CoV-2 (event) Not sure [facility] Start: 02-10-2019 End: 04-04-2023 Tobacco smoking status NHIS Unknown if ever smoked [facility] Start: 02-10-2019 Non-smoker [facility] Start: 02-24-2022 End: 06-13-2022 Alcohol intake Not Asked [facility] Start: 06-14-2022 End: 08-18-2024 History of Social function [place] Start: 11-27-2021 Sexual orientation Heterosexual (fin sam) [place] Start: 08-25-2022 End: 08-18-2024 Alcohol intake Lifetime non-drinker (finding) [facility] Start: 09-08-2021 Sex Female (finding) [place] NEGATED: Highlighted row [facility] Medical Equipment Procedure Code Equipment Code Equipment Origin al Text Equipment Identifier Dates TEST SUGAR ONCE A DAY [id number] Start: 03-27-2021 TEST SUGAR ONCE A DAY [id number] Start: 03-27-2021 Goals Date Patient Goal Desired Activity /State Functional Status Date Assessment Result Facility 05-13-2022 Functional status Bathroom Privilege [facility] Work Phone: Mental Status Date Assessment Result Facility 10-05-2024 Cognitive function Level Of Consciousness Drowsy [facility] Work Phone: 10-05-2024 Cognitive function Voice/Name [facility] Work Phone: 01-04-2023 Cognitive function Voice/Name [facility] Work Phone: 06-01-2022 Cognitive function Level Of Cons ciousness Awake;Alert;Appropriate;Follow s Commands [facility] Work Phone: 05-13-2022 Cognitive function Appropriate;Cooperativ e [facility] Work Phone: 05-13-2022 Cognitive function Voice/Name [facility] Work Phone: Clinical Notes 02-13-2019 to 10-05-2024 Note Date & Type Note Facility 10-05-2024 Consult note [facility] 10-05-2024 History and physi sean note Note Date/Time October 05, 2024 7:36am [facility] Medical Records Department [address] [place] [address] History & Physical Exam 10/05/24 0733 MR#: [id number] Acct: [id number] Name: RICARDO VILLALPANDO Rep #:[id number] : 1940 83 From: Roque Friend DO PCP: Alisson Morton DO Status:REG [facility] Location: [facility]18-1 HPI - General General Date of Admission: [...] 08.18.24 OV She presents with staff from [facility]. Staff, Prema, is unfamiliarwith Ricardo and her [...] dementia and I'm uncertain of its severity. 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 * facility will call to schedule EGD w/dilation * recommend small bites with sips of liquids * continue pantoprazole 20mg PO daily 30minutes before eating * office FU PRN 10/05/24 0736 <Electronically signed by Roque Herrera DO> Cosigner Signature (if applicable): CC: Alisson Morton DO; Roque Herrera DO~ Signed [facility] Work Phone: 1(854) 162-510308-28-2025 Procedure note [facility] Medical Records Department [address] [place] [address] EGD Report MR#: [id number] Acct: [id number] Name: RICARDO VILLALPANDO Rep #:[id number] : 1940 83 From: Roque Herrera DO PCP: Alisson Morton DO Status:REG [facility] Patient Name: Ricardo Villalpando Procedure Date: 10/05/2024 [...] pathology results. Procedure Code(s): --- Professional --- 69003, Esophagogastroduodenoscopy, flexible, transoral; with insertion of guide wire followed by passage of dilator(s) through esophagus over guide wire 30866, 59,51, Esophagogastroduodenoscopy, flexible, transoral; with biopsy, single or multiple CPT copyright 2021 [employer]. All rights reserved. The codes documented in this report are preliminary and upon sales representative wire rope review may be revised to meet current compliance requirements. Roque Herrera DO 10/05/2024 9:18:15 AM This report has been signed electronically. Number of Addenda: 0 Note Initiated On: 10/05/2024 8:39 AM 10/05/24917 Date _ Roque Herrera DO Cosigner Signature: Date (if indicated) CC: Alisson Morton DO; Roque Herrera DO ~ Date Dictated: 10/05/24838 Date Transcribed: Road Supervisor Of Engines: RF Signed [facility]08-28-2025 Procedure note [facility] Medical Records Department [address] [place] [address] Provation Physician Letter MR#: [id number] Acct: [id number] Name: RICARDO VILLALPANDO Rep #:[id number] : 1940 83 From: Roque Herrera DO PCP: Alisson Morton DO Status:REG [facility] 10/05/2024 Alisson Morton Re : Upper GI [...] contact me at . Sincerely, Roque Herrera 10/05/2024 9:18:15 AM This report has been signed electronically. 10/05/24917 Date _ Roque Herrera DO Cosigner Signature: Date (if indicated) CC: Alisson Morton DO; Roque Herrera DO ~ Date Dictated: 10/05/24838 Date Transcribed: Road Supervisor Of Engines: RF Signed [facility]08-28-2025 Consult note [facility] Medical Records Department [address] [place] [address] Pre-Anesthesia Evaluation 10/05/24832 MR#: [id number] Acct: [id number] Name: RICARDO VILLALPANDO Rep #:[id number] : 1940 83 From: Elina collins CRNA PCP: Alisson Morton DO Status:REG SDC Y Race: C Location: [place] [address] ASA Classification* ASA Classification ASA Classification: 3 [...] Procedure(s): EGD Anesthesia History Anesthesia History - traveling engineer: Anesthesia History - traveling engineer Hx Hospitalization Yes: 06/2022 LOWER LEGS EDEMA [...] take am of surgery PONV PONV - traveling engineer: PONV - traveling engineer Female Yes 10/05/24 07:47 HX of Motion [...] 10/05/24 08:07 Respiratory Assessment Respiratory Assessment - traveling engineer: Respiratory Tract Infection Hx - traveling engineer Hx Respiratory Tract Infection No 08/27/24 10:39 STOP Sleep Apnea STOP Sleep Apnea - traveling engineer: STOP Sleep Apnea - traveling engineer Hx Hypertension Yes 10/05/24 07:47 Hx Sleep [...] Tobacco Use History Tobacco Use History - traveling engineer: Tobacco Use History - traveling engineer Tobacco Use Smoking Status Never smoker 10/05/24 07:47 Hx Tobacco Use No 10/05/24 07:47 Years Smoking Packs Smoked per Day Smoking Cessation Date was within the last 15 years Hx Smoking Cessation Date Hx Smoking Cessation Counseling Hematologic Medial History Hematologic Hx - traveling engineer: 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 Specify any problems Hx of Preganancy in last 3 Months Nurse Filling Out Transfusion & Questions: Date: Time: Patient unable to answer at Yes 10/05/24 07:47 this time (ie. confused, unrespo /Reproduction History /Reproductive History - traveling engineer: /Reproductive Hx- traveling engineer Hx Now No 10/05/24 07:47 Gestational Age (in weeks): EDC: Hx Hx Para Hx Section SAB No 10/05/24 07:47 Active Medications Active Medications: Current Medications Generic Name Dose Route Start Last Admin Trade Name Freq PRN Reason Stop Dose Admin Lactated Ringer's 1,000 mls @ 15 mls/hr 10/05/24 07:30 IV .Q48H [facility] Medical History Anxiety Depression Constipation Acute [...] Paroxysmal atrial fibrillation Atherosclerotic heart disease of hopi coronary artery without angina pectoris Persistent atrial [...] additional complaints, except as documented. 10/05/24 0837 randa DIETETIC INTERN> Date _ Elina Alexander CRNA Cosigner Signature: Date CC: ~ Signed [facility]08-28-2025 History and physical note [facility] Medical Records Department [address] [place] [address] History & Physical Exam 10/05/24 0733 MR#: [id number] Acct: [id number] Name: RICARDO VILLALPANDO Rep #:[id number] : 1940 83 From: Roque Herrera DO PCP: Alisson Morton DO Status:[facility] Location: [place] [address] HPI - General General Date of Admission: [...] 08.18.24 OV She presents with staff from [facility]. Staff, Prema, is unfamiliarwith Ricardo and AlineI [...] dementia and I'm uncertain of its severity. 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 * facility will call to schedule EGD w/dilation * recommend small bites with sips of liquids * continue pantoprazole 20mg PO daily 30minutes before eating * office FU PRN 10/05/24 0736 Cosigner Signature (if applicable): CC: Alisson Morton DO; Roque Herrera DO~ Signed [facility]08-28-2025 [facility] Medical Records Department [address] [place] [address] History Physical Exam 10/05/24 0733 MR#: [id number] Acct: [id number] Name: RICARDO VILLALPANDO Rep #: [id number] : 1940 83 From: Roque Herrera DO PCP: Alisson Morton DO Status:[facility] Location: [place] [address] HPI - General General Date of Admission: [...] sandwich. BM are normal. Continues with omeprazole. 6.24 EGD - Benign-appearing esophageal stenosis(endoscope could not [...] consistent with eosinophilic esophagitis are not seen. 7 OV She presents with staff from [facility]. Staff, Prema, is unfamiliar with Ricardo and [...] dementia and I'm uncertain of its severity. [facility] Medical History Acute bronchitis, unspecified Wears [...] Paroxysmal atrial fibrillation Atherosclerotic heart disease of hopi coronary artery without angina pectoris Persistent atrial [...] odynophagia, rectal bleeding, tenesm (more content not included)...[facility]07-11-2025 History of Present illness Narrative* Toni Bey MD - 08/18/2024 2:30 PM EDT [place] [facility] Cardiology [facility] CARDIOLOGY - [address] [facility] [address] Dept: [phone] Dept Visit type: Established : 1940 Chief Complaint: Chief Complaint Patient presents with 1 Year Follow-up Coronary Artery Disease History of Present Illness: Ricardo Villalpando is a 83 y.o. female who is here in follow-up with her daughter. She has advanced dementia. She now lives in a retirement. There have not been complaints of chest [...] and Plan: 1. Coronary artery disease involving hopi coronary artery of hopi heart without angina pectoris 2. Persistent atrial fibrillation (HCC) 3. Mixed hyperlipidemia 1. Coronary artery disease: She has a history of remote stenting. She is doing well with no symptoms of angina per the retirement. Continued medical therapy is recommended. 2. History [...] 1988 UPPER GASTROINTESTINAL ENDOSCOPY 08/08/2018 Dr Carroll [facility] [3] Family History Problem Relation Name Age [...] of breath [6] Current Outpatient Medications: Lancets (CureSquareuch Delica) lancets 30G, TEST SUGAR ONCE A [...] 08/18/2024), Disp: , Rfl: documented in this [facility]07-11-2025 Evaluation note* Diagnosis Onset Date Resolution Status Admit Date Dysphagia chronic August 18 9:09am Esophageal stenosis chronic August 18, 2024 9:09am [facility] Work Phone: 1(421) 441-912907-11-2025 Evaluation note* Diagnosis Onset Date Resolution Status Admit Date Dysphagia chronic August 18 9:09am Esophageal stenosis chronic August 18, 2024 9:09am Dysphagia chronic October 05, 2 025 7:18am Esophageal stenosis chronic Augus 2024 7:18am [facility] Work Phone: 1(159) 586-179607-10-2024 History of Present illness Narrative* Toni Bey MD - 08/18/2023 11:00 AM EDT [facility] Cardiology [facility] [address] [facility] [address] [facility] [address] Dept: [phone] Dept Visit type: Established : 1940 Chief [...] 1989 UPPER GASTROINTESTINAL ENDOSCOPY 08/08/2018 Dr Carroll [facility] Family History Family History Problem Relation Name [...] BUN 18 (H) 09/24/2022 CREATININE 0.85 09/24/2022 @[facility]@ Lab Results Component Value Date CHOL 143 [...] and Plan: 1. Coronary artery disease involving hopi coronary artery of hopi heart without angina pectoris 2. Persistent atrial [...] already stopped her statin. documented in this encounterSUniversity Hospitals Geneva Medical CenterXmxjag37-95-7447 Telephone encounter Note* Telephone Encounter - Olivia Leigh - 07/27/2023 9:00 AM EDT Form signed and faxed back to [phone]. Form uploaded to [employer]. [place]Jdsnzb18-96-0921 Miscellaneous Notes* Telephone Encounter - Olivia Leigh - 07/27/2023 9:00 AM EDT Form signed and faxed back to [phone]. Form uploaded to [employer]. * Telephone Encounter - Olivia Leigh - 07/23/2023 4:20 PM EDT Received form from [facility] for cardiac clearance for EGD with MAC sedation. Form and last OV given to nurse. documented in this [facility]06-14-2024 Telephone encounter Note* Telephone Encounter - Olivia Leigh - 07/23/2023 4:20 PM EDT Received form from [facility] for cardiac clearance for EGD with MAC sedation. Form and last OV given to nurse. [place]Muxdcz54-32-4940 Miscellaneous Notes* Telephone Encounter - Olivia Leigh - 07/23/2023 4:20 PM EDT Received form from [facility] for cardiac clearance for EGD with MAC sedation. Form and last OV given to nurse. documented in this encounterSUniversity Hospitals Geneva Medical CenterFrxawf44-76-5087 Telephone encounter Note* Telephone Encounter - Sharmila [...] [2] no injury Protocols used: Falls and Srfahva-CFDNX-XF [place]Swutmc55-35-3587 Miscellaneous Notes* Telephone Encounter - Sharmila Connell RN - 07/20/2023 7:29 AM EDT S: Patient's daughter Margarita spoke with [facility] nurse regarding fall. B: Onset of [...] [2] no injury Protocols used: Falls and Fovmfoi-XPPBS-GA documented in this [facility]03-06-2024 Telephone encounter Note* Telephone Encounter - Olivia Leigh - 04/14/2023 12:37 PM EST Patient is scheduled to see DR on 08/18/23. [id number] Miscellaneous Notes* Telephone Encounter - Olivia Leigh - 04/14/2023 12:37 PM EST Patient is scheduled to see JDR on 08/18/23. * Telephone Encounter - Barbi Horton RN - 04/12/2023 1:01 PM EST BEATRIS: 08/25/22, Labs: 09/24/22 documented in this [facility]03-04-2024 Telephone encounter Note* Telephone Encounter - Barbi Horton RN - 04/12/2023 1:01 PM EST BEATRIS: 08/25/22, Labs: 09/24/22 [place]Njcxox06-80-9083 Miscellaneous Notes* Telephone Encounter - Barbi Horton RN - 04/12/2023 1:01 PM EST BEATRIS: 08/25/22, Labs: 09/24/22 documented in this encounterSUniversity Hospitals Geneva Medical CenterSllehn95-96-9415 History of Present illness Narrative* Billie Reid APRN.ELIZABETH - 04/04/2023 10:06 AM EST Patient was [...] her to the ER. [facility] History and physical note Author Roque Herrera [facility] January 04, 2023 11:21am Note Date/Time January 04, 2023 11:21am [facility] Medical Records Department [address] [facility] [place] [address] History & Physical Exam 01/04/23 1120 MR#: [id number] Acct: [id number] Name: RICARDO VILLALPANDO Rep #:[id number] : 1940 82 From: Roque Herrera DO PCP: Alisson Morton DO Status:REG [facility] Location: [facility]12-1 History and Physical Date of Admission: 01/04/23 [...] swallow liquids.? Her last dilatation was in [place]. ?Imaging demonstrates a large hiatal hernia. [facility] Medical History (Updated 05/12/22 @ 18:[address] Nevarez Friend, DO) Anemia Atherosclerotic heart disease of hopi coronary artery without angina pectoris Dementia Diabetes [...] (Auto) 70.4 H, Lymph % (Auto) 17.0 L,[place] % (Auto) 8.8, Eos % (Auto) 2.9, [...] 10:11 EDT Reading Location ID and State: [address] [place] [address] , Service support , Assessment & Plan [...] Alisson Morton, DO; Roque Herrera, DO~ Signed [facility] Work Phone: 1(909) 931-402011-27-2023 Procedure [facility] 01-04-2023 Procedure [facility]11-02-2023 Telephone encounter Note* Telephone Encounter - Olivia Leigh - 12/10/2022 1:03 PM EDT Form signed and faxed back to [phone] on 12/10/22. Form uploaded to [employer]. [place]Wiofuk39-41-4083 Miscellaneous Notes* Telephone Encounter - Olivia Leigh - 12/10/2022 1:03 PM EDT Form signed and faxed back to [phone] on 12/10/22. Form uploaded to [employer]. * Telephone Encounter - Olivia Leigh - 12/09/2022 2:03 PM EDT Received fax from [facility] for cardiac clearance for EGD on 01/04/23. Form and last OV given to nurse. documented in this encounterSUniversity Hospitals Geneva Medical CenterQgzfei75-83-2678 Telephone encounter Note* Telephone Encounter - Olivia Leigh - 12/09/2022 2:03 PM EDT Received fax from [facility] for cardiac clearance for EGD on 01/04/23. Form and last OV given to nurse. [place]Hlzaco27-25-6606 Miscellaneous Notes* Telephone Encounter - Olivia Leigh - 12/09/2022 2:03 PM EDT Received fax from [facility] for cardiac clearance for EGD on 01/04/23. Form and last OV given to nurse. documented in this [facility]09-13-2023 Discharge summary Author Ami Thayer [facility] October 21, 2022 1:29pm Note Date/Time October 21, 2022 1:29pm [facility] Physical Therapy [facility] [address] [place] [address] / REHABILITATION SERVICES DISCHARGE SUMMARY MR#: [id number] Acct: [id number] Name: RICARDO VILLALPANDO Rep #: [id number] : 1940 82 From: Ami Thayer PT, Cert. MDT Referring Dr.: Alisson Morton DO Status: REG RCR Insurance: MEDICARE PART A B [facility] Discharge Summary D/C summary: It has been [...] please feel free to call me at [phone]. Thank you for the referral of this patient. Sincerely, Ami Thayer, PT, Cert MDT Balance/Gait/Functional tests Balance/Special Test Scores Oswestry Low Back Score: 5 TUG Test Time Seconds: 11.53 Tug Test: <20 sec.=mostly independent 30 Second Chair Rise Test Seconds: 12 Improvement % Improvement: 98 <Electronically signed by Ami Thayer PT, Cert. MDT> 10/21/22 1329 CC: Alisson Morton, DO ~ ABIGAIL Signed [facility] Work Phone: 1([phone]) 607-117508-17-2023 Miscellaneous Notes* Result Encounter Note - Cheryl Lopez PA-C - 09/24/2022 9:36 AM EDT [facility], Looks like labs were done for refill request. Liver function is less elevated that before, but please make sure she is following up on this with PCP or GI. Looks like she was admitted in June with this issue. documented in this [place] [address]-17-2023 Progress note* Result Encounter Note - Cheryl Lopez PA-C - 09/24/2022 9:36 AM EDT [facility], Looks like labs were done for refill request. Liver function is less elevated that before, but please make sure she is following up on this with PCP or GI. Looks like she was admitted in June with this issue. [place] Work Phone: 1(306) 784-934108-07-2023 Miscellaneous Notes* Result Encounter Note - Cheryl Lopez PA-C - 09/14/2022 3:15 PM EDT Mrs. Villalpando, Your blood work you had done on September 14 look stable. Please call with any questions or concerns. Thank you, Cheryl Lopez PA-C documented in this [facility]08-07-2023 Progress note* Result Encounter Note - Cheryl Lopez PA-C - 09/14/2022 3:15 PM EDT Mrs. Villalpando, Your blood work you had done on September 14 look stable. Please call with any questions or concerns. Thank you, Cheryl Lopez PA-C [facility] Phone: 1(799) 559-653207-18-2023 NoteSinus Rhythm -Poor R-wave progression -may be secondary to pulmonary disease consider old anterior infarct. Low voltage with rightward P-axis and rotation -possible pulmonary disease. ABNORMAL [place]Uofugo31-10-6154 NoteSinus Rhythm -Poor R-wave progression -may be secondary to pulmonary disease consider old anterior infarct. Low voltage with rightward P-axis and rotation -possible pulmonary disease. ABNORMAL [place]Vfivxy17-02-3954 History of Present illness Narrative* Toni Bey MD - 08/25/2022 10:00 AM EDT [facility] Cardiology [facility] [address] [facility] [address] [facility] [address] Dept: [phone] Dept Visit type: Established : 1940 Chief [...] TUBAL LIGATION 1989 UPPER GASTROINTESTINAL ENDOSCOPY 08[facility]08/2018 [facility] Family History Family History Problem Relation Name [...] by mouth daily., Disp: , Rfl: Lancets (CounterStormTouch Delica) lancets 30G, TEST SUGAR ONCE A [...] and Plan: 1. Coronary artery disease involving hopi coronary artery of hopi heart without angina pectoris 2. Persistent atrial fibrillation (HCC) 3. Mixed hyperlipidemia 1. Coronary artery disease: She is currently stable. She has a history of stenting. She has no symptoms of angina. 2. Hyperlipidemia: On therapy. 3. Progressive dementia. 4. Recurrent anemia documented in this [facility]06-14-2023 Telephone encounter Note* Telephone Encounter - Olivia Leigh - 07/22/2022 12:51 PM EDT Patient now scheduled with JDR on 08/25/22. [place]Xfaiwt20-26-6044 Miscellaneous Notes* Telephone Encounter - Olivia Leigh - 07/22/2022 12:51 PM EDT Patient now scheduled with JDR on 08/25/22. * Telephone Encounter - Leslie Samson RN - 07/20/2022 8:26 AM EDT Last OV with JDR on 08/20/21 (next OV 02/20/21 not scheduled) CMP 06/16/22 documented in this [facility]06-12-2023 Telephone encounter Note* Telephone Encounter - Leslie Samson RN - 07/20/2022 8:26 AM EDT Last OV with JDR on 08/20/21 (next OV 02/20/21 not scheduled) CMP 06/16/22 [address]Vtrido20-96-3015 Note* Care Coordination - Alex Delatorre - 06/16/2022 3:28 PM EDT Discharge med list, MAR and covid transfer information transmitted to [facility] via Careport per TCC request. 7000 completed in HENS. Facility is aware. [place]Iwrywl88-41-3427 Note* Care Coordination - Alex Delatorre - 06/16/2022 3:28 PM EDT Discharge med list, MAR and covid transfer information transmitted to [facility] via Careport per TCC request. 7000 completed in HENS. Facility is aware. [place]Bidqtv95-06-8704 Miscellaneous Notes* Care Coordination - Alex Delatorre - 06/16/2022 3:28 PM EDT Discharge med list, MAR and covid transfer information transmitted to [facility] via Careport per TCC request. 7000 completed in HENS. Facility is aware. * Care Coordination - Unknown Case Management - 06/16/2022 3:17 PM EDT Patient Choice Patient Name: RICARDO VILLALPANDO Date of : 1940 All Providers Sent Referral Name: [facility] Phone: [phone] Address: [address] [place] [address] * Care Coordination - Vika Thompson RN - 06/16/2022 2:59 PM EDT Task sent to [facility] via [employer] to complete 7000 and send it with dc paperwork and Covid results to [facility]. . * Care Coordination - MARA Garcia - 06/16/2022 2:12 PM EDT Dc transportation arranged for 5:00 to [facility] in [place]. Spoke with patients daughter via phone to discuss the dc arrangements and the picker packer time. Ambulance transport form completed. * Care Coordination - Alex Delatorre - 06/16/2022 11:02 AM EDT [facility] request. Await review and response regarding ability to accept. TCC notified. * Care Coordination - Vika Thompson RN - 06/16/2022 10:54 AM EDT Images from the original note were not included. Care Management Progress Note Secure message from Dr. Morton patient is ready for SNF placement. Daughter, Margarita, called and gave choice of [facility] in [place]. Task sent to [facility] via [employer]iz[employer] place referral to above. Will watch for [...] PM EDT Patient is currently active with [facility]. The patients current certification period will on 07/31/2022. The patient is currently receiving PT/OT/ST services through the agency. Air Analysis Technician to continue to follow. [facility] * Care Coordination - Josey Mckeon RN - 06/13/2022 4:28 PM EDT Care Managment Initial Assessment Date: 06/13/2022 Patient Name: Ricardo Villalpando : 1940 Patient Information Source of Information: Patient, Patient Scale Mechanic Name/Contact Information: MARGARITA CORNELL [phone] DAUGHTER AND DAUGHTER YAZ DAVIS [phone] Cognition/Language: WFL - Within Functional Limits Permission given to speak with patient sales representative adding machines/caregiver as indicated: Yes Confirmation of Payer with patient/family: Yes Payer Name: MMO Kinzers: No Confirmation of Primary Care Physician: Confirmed [...] Family members, Home care staff, Comments (Other) ([facility]) Activities of Daily Living Ambulation: Independent Bathing/Dressing: Independent Elimination/Continence/Toileting: Independent Feeding: Independent Who Assists with Activities of Daily Living: NA Instrumental Activities of Daily Living Prescription Coverage: Yes Pharmacy Used: [facility] Medication Management: Prescription pick-up Who assists with medication securing and setup?: DAUGHTER SECURES AND SETS UP MEDS Transportation/Shopping: Assistance Provider Transportation/Shopping Assistance Provider Name: AKI TOBIAS [facility] Transportation Mode: Car, Senior/disability transport service [...] home with anemia. Admitted to [facility]. Admissions orders are pending. Discharge preparation checklist reviewed with patient and her daughter Margarita. [place] to her daughter and son in law. Is active with the [facility] M-F 730-330pm. Her daughter states she has occupational therapy that was seeing her at [facility] and was going to start with ST for swallowing. engagement liaison updated via [facility] and is following. Daughter uncertain if through [employer] or [place]. Daughter assists patient with all household tasks and patient is independent in her adls. Does not anticipate any needs upon discharge and tentative discharge plan is home with resumption of previous services when medically stable. Will likely need pt/ot evals to assist with dc planning needs. .. Josey Mckeon RN documented in this [facility]05-09-2023 Note* Care Coordination - Unknown Case Management - 06/16/2022 3:17 PM EDT Patient Choice Patient Name: RICARDO VILLALPANDO Date of : 1940 All Providers Sent Referral Name: [facility] Phone: [phone] Address: [address] [place], [place] [id number] [id number] Note* Care Coordination - Unknown Case Management - 06/16/2022 3:17 PM EDT Patient Choice Patient Name: RICARDO VILLALPANDO Date of : 1940 All Providers Sent Referral Name: [facility] Phone: [phone] Address: [address] [place] [address] [id number] Note* Care Coordination - Vika Thompson RN - 06/16/2022 2:59 PM EDT Task sent to [facility] via [employer] to complete 7000 and send it with dc paperwork and Covid results to [facility]. . [place]Ibywsh74-97-2443 Note* Care Coordination - Vika Thompson RN - 06/16/2022 2:59 PM EDT Task sent to [facility] via [employer] to complete 7000 and send it with dc paperwork and Covid results to [facility]. . [id number] Note* Care Coordination - MARA Garcia - 06/16/2022 2:12 PM EDT Dc transportation arranged for 5:00 to [facility] in [place]. Spoke with patients daughter via phone to discuss the dc arrangements and the picker packer time. Ambulance transport form completed. [id number] Note* Care Coordination - MARA Garcia - 06/16/2022 2:12 PM EDT Dc transportation arranged for 5:00 to [facility] in [place]. Spoke with patients daughter via phone to discuss the dc arrangements and the picker packer time. Ambulance transport form completed. [id number] History of Present illness Narrative* Kerri Steve BessieASHLY - 06/16/2022 2:08 PM EDT Occupational Therapy Facility/Department: [facility] Occupational Therapy Treatment NAME: Ricardo Villalpando : 1940 Date of Service: 06/16/2022 Discharge Recommendations: Subacute/Longterm Facility, Continue to assess pending progress (vs [facility] with 24 hr SUP) Assessment REQUIRES OT [...] obtain overall health wellness. Rec SNF or [facility] with 24/7 assist iffamily able to provide. [...] recent events, Decreased short term memory, Decreased intermodal customer service memory Safety Judgement: Decreased awareness of need [...] 06/16/2022 11:26 AM EDT Physical Therapy Facility/Department: [facility] 2E Physical Therapy Daily Treatment Note NAME: Ricardo Villalpando : 1940 Date of Service: 06/16/2022 Discharge Recommendations: Subacute/Longterm Facility, Continue to assess pending progress (vs [facility] with 24 hr SUP) PT Equipment Recommendations [...] recent events, Decreased short term memory, Decreased intermodal customer service memory Safety Judgement: Decreased awareness of need [...] 06/14/2022 3:11 PM EDT Physical Therapy Facility/Department: [address] Physical Therapy Initial Evaluation NAME: Ricardo Villalpando : 1940 Date of Service: 06/14/2022 Discharge Recommendations: Subacute/Longterm Facility PT Equipment Recommendations Equipment Needed: No [...] recent events, Decreased short term memory, Decreased senior living memory Safety Judgement: Decreased awareness of need [...] Device: rolling walker Transfer Assistance: Independent Active Production Broacher: No Patient's Production Broacher Info: Per pt report her daughter drives her. Additional Comments: Paient attend [employer] during day ,adult day care Objective Observation/Palpation [...] Inpatient Mobility Raw Score: 17 Mobility Inpatient [facility] G-Code Modifier: CK Goals Encounter Problems Encounter [...] 1422 Time Out 1434 Minutes 12 Franklin Aviles, PT * Robyn Bernal, OT - 06/14/2022 1:51 PM EDT Occupational Therapy Facility/Department: [address] Occupational Therapy Initial Evaluation NAME: Ricardo Villalpando : 1940 Date of Service: 06/14/2022 Discharge Recommendations: Subacute/Longterm Facility OT Equipment Recommendations Equipment Needed: No [...] recent events, Decreased short term memory, Decreased intermodal customer service memory Safety Judgement: Decreased awareness of need [...] Device: rolling walker Transfer Assistance: Independent Active Production Broacher: No Patient's Production Broacher Info: Per pt report her daughter drives [...] therapist. Radha Bernal OT documented in this [facility]05-09-2023 Note* Care Coordination - Alex Delatorre - 06/16/2022 11:02 AM EDT Referral placed to [facility] via [facility] per TCC request. Await review and response regarding ability to accept. TCC notified. [id number] Note* Care Coordination - Alex Delatorre - 06/16/2022 11:02 AM EDT Referral placed to SNF- [facility] via [facility] per TCC request. Await review and response regarding ability to accept. TCC notified. [id number] Note* Care Coordination - Vika Thompson RN - 06/16/2022 10:54 AM EDT Images from the original note were not included. Care Management Progress Note Secure message from Dr. Morton patient is ready for SNF placement. DaughterMargarita, called and gave choice of [facility] in [place]. Task sent to [facility] via [facility] referral to above. Will watch for [...] of Stay (Days): 3 GMLOS: 2.7 T [id number] Note* Care Coordination - Vika Thompson RN - 06/16/2022 10:54 AM EDT Images from the original note were not included. Care Management Progress Note Secure message from Dr. Morton patient is ready for SNF placement. DaughterMargarita, called and gave choice of [facility] in [place]. Task sent to [facility] via [facility] referral to above. Will [...] Length of Stay (Days): 3 GMLOS: 2.7 [id number] Nurse Note* Fiordaliza Del Castillo RN - 06/16/2022 6:04 AM EDT This nurse attempted to call both of the patients' daughters at this time to obtain a breakfast order for the patient. Both numbers went straight to voicemail. CentervilleBgasna13-76-0783 Nurse Note* Fiordaliza Del Castillo RN - [...] and pillowed positioning. ] documented in this [facility]05-09-2023 Nurse Note* Fiordaliza Del Castillo RN - 06/16/2022 5:45 AM EDT This RN and Esme CHUAT performed a complete bed bath with hair washing and skin care at this time. All new linens including gown, body bathed, hair washed, lotion applied, barrier cream applied, incontinence brief, and pillowed positioning. ] [place]Trvcrj21-05-1159 Plan of care note* Care Plan - [...] integrity is maintained or improved Outcome: Progressing [id number] Note* Care Coordination - Vika Thompson RN [...] Length of Stay (Days): 2 GMLOS: 2.7 [place]Syczwp13-41-5437 Note* Care Coordination - Vika Thompson RN [...] Length of Stay (Days): 2 GMLOS: 2.7 [id number] Plan of care note* Care Plan - [...] to address these barriers include increase mobility. [id number] Consult note* Jersey Rollins MD - 06/14/2022 1:43 PM EDTAssociated Order(s): Inpatient consult to Gastroenterology Images from the original note were not included. GI CONSULTATION Patient: Ricardo Villalpando : 1940 Primary Care Physician: [facility] Inpatient consult to Gastroenterology Consult performed [...] TUBAL LIGATION 1989 UPPER GASTROINTESTINAL ENDOSCOPY [facility]08[facility]2018 [facility] FAMILY HISTORY: Family History Problem Relation Name [...] Do not swallow.. 02/27/22 02/27/23 Gin Finn, CONTINUOUS MINING MACHINE LODE MINER - OPERATING ROOM SCHEDULER Lancets (OneTouch Delica) lancets 30G TEST SUGAR [...] am labs Continue to monitor Hgb closely [id number] Consult note* Jersey Rollins MD - 06/14/2022 1:43 PM EDTAssociated Order(s): Inpatient consult to Gastroenterology Images from the original note were not included. GI CONSULTATION Patient: Ricardo Villalpando : 1940 Primary Care Physician: [facility] Inpatient consult to Gastroenterology Consult performed [...] TUBAL LIGATION 1989 UPPER GASTROINTESTINAL ENDOSCOPY 08/08/2018 [facility] FAMILY HISTORY: Family History Problem Relation Name [...] Do not swallow.. 02/27/22 02/27/23 Gin Finn, CONTINUOUS MINING MACHINE LODE MINER - OPERATING ROOM SCHEDULER Lancets (OneTouch Delica) lancets 30G TEST SUGAR [...] 06/13/22 144 BNP 575* INR: Recent Labs 06/13/22 144 INR 1.1 ECG 12 lead Result Date: 06/13/2022 Sinus rhythm Atrial premature complex Borderline left axis deviation Borderline low voltage, extremity leads Compared to ECG 02/11/2019 07:22:58 Atrial premature complex(es) now present Atrial fibrillation no longer present CT head wo IV contrast Result Date: 06/13/2022 Patient Name: RICARDO VILLALPANDO : 1940 [id number] Date/Time: 06/13/2022 15:08 Procedure: CT HEAD WO [...] 06/13/2022 Patient Name: RICARDO VILLALPANDO : [address] [facility]#: [id number] Date/Time: 06/13/2022 15:21 Procedure: XR PELVIS 1-2 [...] to monitor Hgb closely documented in this [facility]05-07-2023 History and physical note* Alisson Janie Morton, DO - 06/14/2022 10:15 AM EDT [...] 1989 UPPER GASTROINTESTINAL ENDOSCOPY 08/08/2018 Dr Carroll [facility] Medications Prior to Admission: Medications Prior to [...] Do not swallow.. 12 g 1 Lancets (CounterStormTouch Delica) lancets 30G TEST SUGAR ONCE A [...] infarction) (HCC) Leukocytosis Coronary artery disease involving hopi coronary artery of hopi heart without angina pectoris Esophageal obstruction Dysphagia Dementia (HCC) Anemia AMS Elevated lfts Anemia DM 2 HTN HPL Plan Admit to med tele Consult GI Pt/ot eval Monitor labs ALISSON MORTON DO 06/14/22 10:15 AM [id number] History and physical note* Alisson Morton DO [...] TUBAL LIGATION 1989 UPPER GASTROINTESTINAL ENDOSCOPY 08/08/2018 [facility] Medications Prior to Admission: Medications Prior to [...] infarction) (HCC) Leukocytosis Coronary artery disease involving hopi coronary artery of hopi heart without angina pectoris Esophageal obstruction Dysphagia Dementia (HCC) Anemia AMS Elevated lfts Anemia DM 2 HTN HPL Plan Admit to med tele Consult GI Pt/ot eval Monitor labs ALISSON MORTON DO 06/14/22 10:15 AM documented in this [facility]05-06-2023 Hospital Discharge instructions* Discharge Instr - Other Orders* Estelle Mitchell LPN - 06/13/2022 5:59 PM EDT Discharging to Facility/ Agency Name: [facility] Address: [address] [place] [address] * Discharge Instr - NAOMIE* Nicole Boles [...] Contact Information Primary Emergency Contact: Margarita Cornell [place] Relation: Child Secondary Emergency Contact: Yaz Davis [employer] Relation: Child Past Surgical History: Past Surgical History: Procedure Laterality Date CHOLECYSTECTOMY 03/2019 COLONOSCOPY COLONOSCOPY 03/07/2019 stent removal COLONOSCOPY 09/21/2018 ERCP (HISTORICAL) 02/15/2019 EYE SURGERY Bilateral cataract THROAT SURGERY 2014 TUBAL LIGATION 1989 UPPER GASTROINTESTINAL ENDOSCOPY 08/08/2018 Dr Carroll [facility] Immunization History: Immunization History Administered Date(s) Administered [...] infarction) (HCC) Leukocytosis Coronary artery disease involving hopi coronary artery of hopi heart without angina pectoris Isolation/Infection: No active [...] assistance Toileting Minimal assistance Feeding Minimal assistance Night Manager Minimal assistance Med Delivery yes Wound Care [...] Score: @READMISSIONRISKDETAILS@ Discharging to Facility/ Agency Name: [facility] Address: [address] [place] [address], [facility] [address] Fax: Dialysis Facility (if applicable) Name: Address: Dialysis Schedule: Phone: Fax: Therapist Asst/Furniture Upholstery Mechanic signature: ICIAN SECTION Prognosis: fair Condition at Discharge: stable Rehab Potential (if transferring to Rehab): fair Recommended Labs or Other Treatments After Discharge: none Physician Certification: I certify the above information and transfer of Ricardo Villalpando is necessary for the continuing treatment of the diagnosis listed and that she requires chcf facility for less than 30 days. Update Admission H&P: No change in H&P PHYSICIAN SIGNATURE: documented in this [facility]05-06-2023 Note* Home Care - Estelle Mitchell LPN - 06/13/2022 5:56 PM EDT Patient is currently active with [facility] [employer] [facility]. The patients current certification period will on 07/31/2022. The patient is currently receiving PT/OT/ST services through the agency. Air Analysis Technician to continue to follow. Placed in care [facility] [id number] Note* Home Care - Estelle Mitchell LPN - 06/13/2022 5:56 PM EDT Patient is currently active with [facility]. The patients current certification period will on 07/31/2022. The patient is currently receiving PT/OT/ST services through the agency. Air Analysis Technician to continue to follow. Placed in care [facility]arc [place]Shpxui00-14-8296 Note* Care Coordination - Josey Mckeon RN - 06/13/2022 4:28 PM EDT Care Managment Initial Assessment Date: 06/13/2022 Patient Name: Ricardo Villalpando : 1940 Patient Information Source of Information: Patient, Patient Scale Mechanic Name/Contact Information: MARGARITA CORNELL [phone] DAUGHTER AND DAUGHTER YAZ DAVIS [phone] Cognition/Language: WFL - Within Functional Limits Permission given to speak with patient sales representative adding machines/caregiver as indicated: Yes Confirmation of Payer with [...] Family members, Home care staff, Comments (Other) ([facility]) Activities of Daily Living Ambulation: Independent Bathing/Dressing: Independent Elimination/Continence/Toileting: Independent Feeding: Independent Who Assists with Activities of Daily Living: NA Instrumental Activities of Daily Living Prescription Coverage: Yes Pharmacy Used: [facility] Medication Management: Prescription pick-up Who assists with medication securing and setup?: DAUGHTER SECURES AND SETS UP MEDS Transportation/Shopping: Assistance Provider Transportation/Shopping Assistance Provider Name: DAUGHTER OR [facility] Transportation Mode: Car, Senior/disability transport service [...] Provider Name: UNSURE IF THROUGH [facility] OR [facility] Dialysis Type: NA Durable Medical Equipment: Walker, [...] home with anemia. Admitted to [facility]. Admissions orders are pending. Discharge preparation checklist reviewed with patient and her daughter Margarita. Patient lives in [place] door to her daughter and son in law. Is active with the [facility] M-F 730-330pm. Her daughter states she has occupational therapy that was seeing her at [facility] and was going to start with ST for swallowing. engagement liaison updated via [facility] and is following. Daughter uncertain if through [employer] or [employer] Daughter assists patient with all household tasks and patient is independent in her adls. Does not anticipate any needs upon discharge and tentative discharge plan is home with resumption of previous services when medically stable. Will likely need pt/ot evals to assist with dc planning needs. .. Josey Mckeon RN [id number] Note* Care Coordination - Josey Mckeon RN - 06/13/2022 4:28 PM EDT Care Managment Initial Assessment Date: 06/13/2022 Patient Name: Ricardo Villalpando : 1940 Patient Information Source of Information: Patient, Patient Scale Mechanic Name/Contact Information: MARGARITA CORNELL [phone] DAUGHTER AND DAUGHTER YAZ DAVIS [phone] Cognition/Language: WFL - Within Functional Limits Permission given to speak with patient sales representative adding machines/caregiver as indicated: Yes Confirmation of Payer with patient/family: Yes Payer Name: MMO : No Confirmation of Primary Care Physician: Confirmed PCP Name: DR. MORTON Seen in last 2 years?: Yes Primary Caregiver: Family If assistance needed, confirmed caregiver ready, willing and able to care for patient at discharge:Yes Confirmed with: AKI CATALAN Living Arrangements Current Residence: ([facility]) Number of Floors 1 Number of Entry Steps: 2 Bed/Bath Levels: Both first floor Facility: Facility Name: NA Plan to Return: Yes Lives with: Alone Support Systems: Children, Family members, Home care staff, Comments (Other) ([facility]) Activities of Daily Living Ambulation: Independent Bathing/Dressing: Independent Elimination/Continence/Toileting: Independent Feeding: Independent Who Assists with Activities of Daily Living: NA Instrumental Activities of Daily Living Prescription Coverage: Yes Pharmacy Used: [facility] Medication Management: Prescription pick-up Who assists with medication securing and setup?: DAUGHTER SECURES AND SETS UP MEDS Transportation/Shopping: Assistance Provider Transportation/Shopping Assistance Provider Name: DAUGHTER OR [facility] Transportation Mode: Car, Senior/disability transport service [...] Provider Name: UNSURE IF THROUGH [facility] Dialysis Type: NA Durable Medical [...] home with anemia. Admitted to [facility]. Admissions orders are pending. Discharge preparation checklist reviewed with patient and her daughter Margarita. Patient lives in [place] [facility] door to her daughter and son in law. Is active with the [facility] M-F 730-330pm. Her daughter states she has occupational therapy that was seeing her at [facility] and was going to start with ST for swallowing. engagement liaison updated via [facility] and is following. Daughter uncertain if through [email or web address] or [employer] Daughter assists patient with all household tasks and patient is independent in her adls. Does not anticipate any needs upon discharge and tentative discharge plan is home with resumption of previous services when medically stable. Will likely need pt/ot evals to assist with dc planning needs. .. Jsoey Mckeon RN [id number] Emergency department Note* Natalie Scott RN - 06/13/2022 3:13 PM EDT This RN clarified magnesium order with eve Moreno to give per provider. Natalie Scott RN 06/13/22 1514 CentervilleRkkdvk48-01-9374 Emergency department Note* Natalie Scott RN - [...] CAPSULE Take 1 capsule by mouth daily. [employer] ULTRA TEST STRIP TEST SUGAR ONCE A [...] Pt accompanied by daughter documented in this [facility]05-06-2023 Emergency department Note* Natalie Scott RN - 06/13/2022 3:03 PM EDT Patient placed in wheelchair to use restroom, pt ambulated well independently from wheelchair to bathroom Natalie Scott RN 06/13/22 1508 [id number] Emergency department Triage note* Ashanti Michelle RN - 06/13/2022 12:04 PM EDT Pt presents from outpatient ECHO due to bilateral leg edema. +2 edema noted. Pt poor historian. Pt accompanied by daughter CentervilleWobgzl86-27-1945 Physician Emergency department Note* Eric Cintron MD [...] incidence of candidiasis. Do not swallow.. LANCETS (ComponentLabTOUCH DELICA) LANCETS 30G TEST SUGAR ONCE A [...] MD (electronically signed) Eric Cintron MD 06/13/221542 CentervilleJfrcrr56-56-[address] Younger [facility] June 01, 2022 11:43pm Note Date/Time June 01, 2022 11: 15pm [facility] Medical Records Department [address] [place] [address] Emergency Department Summary 06/01/22 MR#: [id number] Acct: [id number] Name: RICARDO VILLALPANDO Rep #:[id number] : 1940 81 From: Xavier Younger MD PCP: Alisson Morton DO Status:REG ER Location: ED HPI History of Present Illness Chief Complaint: Fatigue PFSH [facility] Medical History (Updated 06/01/22 @ 23:[address] Xavier Younger MD) Anemia Atherosclerotic heart disease of hopi coronary artery without angina pectoris Dementia Diabetes [...] (Auto) 70.1 H Lymph % (Auto) 22.3 [place] % (Auto) 5.5 Eos % (Auto) 1.1 [...] Color Urine Clarity Urine pH Ur Specific Riley Urine Protein Urine Glucose (UA) Urine Ketones Urine Occult Blood Urine Nitrite Urine Bilirubin Urine Urobilinogen Ur Leukocyte Esterase Urine RBC Urine WBC Ur Squamous Epith Cells Urine Bacteria Urine Mucus 06/01/22 21:40 WBC RBC Hgb Hct MCV MCH MCHC RDW Std Deviation RDW Coeff of Galen Plt Count MPV Immature Gran % (Auto) Neut % (Auto) Lymph % (Auto) [place] % (Auto) Eos % (Auto) Baso % (Auto) Absolute Neuts (auto) Absolute Lymphs (auto) Nucleated RBC % Sodium Potassium Chloride Carbon Dioxide Anion Gap BUN Creatinine Est GFR (MDRD) Af Amer Est GFR (MDRD) Non-Af BUN/Creatinine Ratio Glucose Calcium Total Bilirubin Direct Bilirubin AST ALT Alkaline Phosphatase Total Protein Albumin Globulin Urine Color Yellow Urine Clarity Sl. Cloudy Urine pH 5.0 Ur Specific Riley 1.015 Urine Protein 30 H Urine Glucose [...] Alisson Morton DO [Primary Care Provider] - 3-5 Days Disposition Disposition: Home, Self Care What to do if you have Problems For any increased pain, shortness of breath, bleeding, nausea or vomiting, chestpain, or any unexpected problems, contact your Primary Care Provider. Call [facility] ([phone]) or report to the closest Emergency Room. Call 911 if necessary. 06/01/222342 <Electronically signed by Xavier Younger MD> Cosigner Signature (if applicable): CC: Alisson Morton DO ~ Signed [facility] Work Phone: 1(130) 801-397904-05-[address] Pack [facility] May 13, 2022 3:47pm Note Date/Time May 13, 2022 3:46 pm [facility] Medical Records Department [address] [place] [address] Instructions for Home/Discharge Instructions 05/13/22 1545 MR#: [id number] Acct: [id number] Name: RICARDO VILLALPANDO Rep #:[id number] : 1940 81 From: Jovi galvez MD [...] can be placed): Home, Self Care 05/13/22 3749<Electronically signed by Jovi Pack MD>Jovi Pack MD CC: Alisson Morton DO ~ Signed [facility] Work Phone: 1(653) 892-646704-05-[address] Pack [facility] May 13, 2022 2:10pm Note Date/Time May 13, 2022 2:10 pm [facility] Medical Records Department [address] [place] [address] Discharge Summary 05/13/22 1406 MR#: [id number] Acct: [id number] Name: RICARDO VILLALPANDO Rep #:[id number] : 1940 81 From: Jovi galvez MD PCP: Alisson Morton DO Status:ADM WARD Location: [place] [address] Providers Date of Admission: 05/12/22 Primary Care Physician: Dr. Alisson Morton DO Consultations 05/12/22 12:48 Consult: Gastroenterology Routine Consulting Provider: [facility] Reason for Consult: Dysphagia EMERGENT Consult: [...] had another 1 at a hospital in [place] in January 2022.? She has been having [...] % (Auto) 61.7, Lymph % (Auto) 21.4, [place] % (Auto) 11.8 H, Eos % (Auto) [...] in before D/C Order can be placed): Longterm Facility Charges/Coding Visit Charges Inpatient E&M: 23672 Disch Hosp >30min 05/13/22 1410 <Electronically signed by Jovi Pack MD> Cosigner Signature (if applicable): CC: Dr. Jovi Pack MD; Alisson Morton DO~ Signed [facility] Work Phone: 1([phone]) 729-362604-05-[address] Pack [facility] May 13, 2022 1:53pm Note Date/Time May 13, 2022 1:51 pm [facility] Medical Records Department [address] [place] [address] Transfer to [facility] MR#: [id number] Acct: [id number] Name: RICARDO VILLALPANDO Rep #:[id number] : 1940 81 From: Jovi galvez MD PCP: Alisson Morton DO Status:ADM WARD Certification of patient admission REQUIRED AT TIME OF ADMISSION. I CERTIFY THAT POST-HOSPITAL ECF SERVICES ARE REQUIRED TO BE GIVEN ON AN IN-PATIENT BASIS BECAUSE OF THE ABOVE NAMED PATIENT'S NEED FOR CUSTODIAL CARE ON A CONTINUING BASIS FOR THE [...] Recommendations/Changes: Continue Cardiac diet with texture/consistency per DOCUMENT CONTROL ASSOCIATE/MD. Continue 120mL EPHP TID with medpass to [...] in before D/C Order can be placed): Longterm Facility 05/13/22 1353 <Electronically signed by Jovi Pack MD> Cosigner Signature (if applicable): CC: Alisson Morton DO ~ [facility] Work Phone: 1([phone]) 580-600104-05-[address] Pack [facility] May 13, 2022 9:17am Note Date/Time May 13, 2022 9:13 am [facility] Medical Records Department [address] [place] [address] Progress Note - Hospitalist 05/13/22 0910 MR#: [id number] Acct: [id number] Name: RICARDO VILLALPANDO Rep #:[id number] : 1940 81 From: Jovi galvez MD PCP: Alisson Morton DO Status:ADM [facility]ARD [facility] Subjective Subjective Doing well, no issues overnight [...] (Auto) 70.4 H, Lymph % (Auto) 17.0 L,[place] % (Auto) 8.8, Eos % (Auto) 2.9, [...] % (Auto) 61.7, Lymph % (Auto) 21.4, [place] % (Auto) 11.8 H, Eos % (Auto) [...] DVT: SCDs Charges/Coding Visit Charges Inpatient E&M: 71642 Subs Hosp L2 04/05/23 0917 <Electronically signed by Jovi Pack MD> Cosigner Signature (if applicable): CC: ~ Signed [facility] Work Phone: 1(338) 527-520504-05-2023 Procedure [facility] 05-13-2022 Procedure [facility]04-04-2023 Consult note Author Roque Herrera [facility] May 12, 2022 6:47pm Note Date/Time May 12, 2022 6:45 pm [facility] Medical Records Department [address] [place] [address] Consultation - GI 05/12/22 1844 MR#: [id number] Acct: [id number] Name: RICARDO VILLALPANDO Rep #:[id number] : 1940 81 From: Roque Herrera DO PCP: Alisson Morton DO Status:ADM WARD Location: [place] [address] HPI Consult Data Date of Consult: 05/12/22 [...] swallow liquids.? Her last dilatation was in [place]. ?Imaging demonstrates a large hiatal hernia. [facility] Medical History (Updated 05/12/22 @ 18:[address] Nevarez Friend, ) Anemia Atherosclerotic heart disease of hopi coronary artery without angina pectoris Dementia Diabetes [...] (Auto) 70.4 H, Lymph % (Auto) 17.0 L,[place] % (Auto) 8.8, Eos % (Auto) 2.9, [...] 10:11 EDT Reading Location ID and State: [facility] / [place] , Service support , Assessment & Plan [...] of 3. Charges/Coding Visit Charges Inpatient E&M: 53485 Init Hosp L2 05/12/22 1847 <Electronically signed by Roque Herrera DO> Cosigner Signature (if applicable): CC: Alisson Morton DO~ Signed [facility] Work Phone: [phone]) 321-963704-04-[address] Benitez [facility] May 12, 2022 4:36pm Note Date/Time May 12, 2022 10:0 0am [facility] Medical Records Department [address] [place] [address] Emergency Department Summary 05/12/22 MR#: [id number] Acct: [id number] Name: RICARDO VILLALPANDO Rep #:[id number] : 1940 81 From: Zonia Benitez DO PCP: Alisson Morton DO Status:ADM WARD Location: [place] [address] HPI History of Present Illness Chief Complaint: Foreign Body Detail of Chief Complaint: Difficulty swallowing Informant: patient and family Narrative Narrative: Patient brought to the emergency department by her daughter for complaint of difficulty swallowing. Patient apparently was having a hard time swallowing hermeal yesterday. She had a hard time swallowing her pills today. Patient has history of EGD with esophageal dilatation around [place] of 2022. She per daughter had been doing relatively well until recently. She had had 1 prior dilatation years ago. Patient currently at assisted living facility. Patient has history of dementia and is somewhat of a poor historian. Apparently she is able to swallow liquids. Her last dilatation was in [place]. [facility] Medical History (Updated 05/12/22 @ 11:[address] Zonia Benitez, DO) Anemia Atherosclerotic heart disease of hopi coronary artery without angina pectoris Dyslipidemia Gallstone [...] swallow without difficulty. I discussed case with network professional on-call Dr. Herrera. He felt admitting the [...] 70.4 H Lymph % (Auto) 17.0 L [place] % (Auto) 8.8 Eos % (Auto) 2.9 [...] seen. Large hiatal hernia. Electronically Signed: Demar Tsocano MD at 10:11 EDT , 1 view [...] Alisson Morton, DO [Primary Care Provider] - Disposition Disposition: Acute Care Hospital [facility] What to do if you have Problems For any increased pain, shortness of breath, bleeding, nausea or vomiting, chestpain, or any unexpected problems, contact your Primary Care Provider. Call [facility] ([phone]) or report to the closest Emergency Room. Call 911 if necessary. 05/12/22 1636 <Electronically signed by Zonia Benitez DO> Cosigner Signature (if applicable): CC: Alisson Morton DO ~ Signed [facility] Work Phone: [phone]) 653-888504-04-2023 History and physical note Author Dr. Pack [facility] May 12, 2022 4:06pm Note Date/Time May 12, 2022 11:2 1am [facility] Medical Records Department [address] [place] [address] H&P Exam - Hospitalist 05/12/22 1115 MR#: [id number] Acct: [id number] Name: RICARDO VILLALPANDO Rep #:[id number] : 1940 81 From: Jovi galvez MD PCP: Alisson Morton DO Status:ADM WARD Location: [place] [id number] HPI - General General Date of Admission: 05/12/22 HPI Narrative RICARDO VILLALPANDO, is a 81 F who presents to the hospital with difficulty swallowing. This has been an ongoing issue she had a previous esophageal dilatation years ago and then had another 1 at a hospital in [place] in January 2022. She has been having [...] discussing the case with the ED physician. [facility] Medical History (Updated 05/12/22 @ 12:41 by Lyn Minor) Anemia Atherosclerotic heart disease of hopi coronary artery without angina pectoris Dementia Diabetes [...] (Auto) 70.4 H, Lymph % (Auto) 17.0 L,[place] % (Auto) 8.8, Eos % (Auto) 2.9, [...] medications DVT: SCDs 75 minutes was spent [id number], as well as chart review and documentation anddiscussing the case with colleagues Charges/Coding Visit Charges Inpatient E&M: 27546 Init Hosp L3 05/12/22 1606 <Electronically signed by Jovi Pack MD> Cosigner Signature (if applicable): CC: Dr. Jovi Pack MD; Alisson Morton DO~ Signed [facility] Work Phone: [phone] 809-739201-26-2023 Telephone encounter Note* Telephone Encounter - KALYN Fulton CNP - 03/05/2022 11:40 AM EST Spoke to daughter Margarita and relayed the message. She will picker packer the medication today. [id number] Miscellaneous Notes* Telephone Encounter - KALYN Fulton CNP - 03/05/2022 11:40 AM EST Spoke to daughter Margarita and relayed the message. She will picker packer the medication today. * Telephone Encounter - KALYN Fulton CNP - 03/05/2022 11:32 AM EST SADI I called Donald (pharmacist) at [facility] [address] [place] [address] PH#[phone]. The medication (budesonide slurry) is ready for [...] verified with verbal order by provider into [facility] [address] [place] [address] PH#[phone]. Pharmacist stated compoundingpharmacist was not in today, [...] Please call [facility] (surescripts ID: [facility] retail- NOT [facility]) [phone] to request budesonide slurry d/t high cost [...] rx instructions. Margarita stated that Flovent is almost$400 and did [...] daughter and got her scheduled for a CLASSIFICATION CONTROL CLERK appointment on 03/13/22 at 2:40pm with Huma [...] my schedule to discuss. documented in this encounterSUniversity Hospitals Geneva Medical CenterVexpzg21-72-8955 Telephone encounter Note* Telephone Encounter - KALYN Fulton CNP - 03/05/2022 11:32 AM EST SADI I called Donald (pharmacist) at [facility] [address] [place] [address]#[phone]. The medication (budesonide slurry) is ready for [...] Yaz calls back and has any questions. [place]Ietzrf00-05-7736 Telephone encounter Note* Telephone Encounter - Pau [...] covering medications. Please advise and Thank you [id number] Miscellaneous Notes* Telephone Encounter - Pau Bar [...] verified with verbal order by provider into [facility] [address] [place] [address]#[phone]. Pharmacist stated compoundingpharmacist was not in today, [...] Please call [facility] (surescripts ID: [facility] retail- NOT [facility]) [phone] to request budesonide slurry d/t high cost [...] rx instructions. Margarita stated that Flovent is almost$400 and did [...] daughter and got her scheduled for a CLASSIFICATION CONTROL CLERK appointment on 03/13/22 at 2:40pm with Huma [...] my schedule to discuss. documented in this encounterSUniversity Hospitals Geneva Medical CenterXynnwj11-16-6711 Telephone encounter Note* Telephone Encounter - KALYN Fulton CNP - 03/04/2022 12:56 PM EST Please let me know once you talk to the patient's daughter so she is confident on how the patient it to take medication. Thank you! CentervilleTbwurt13-09-2280 Telephone encounter Note* Telephone Encounter - Lupis Connors RN - 03/04/2022 11:55 AM EST Called in rx as written and verified with verbal order by provider into [facility] [place] [id number] #[phone]. Pharmacist stated compoundingpharmacist was not in today, and will return tomorrow. Pharmacist verified rx, pt information, andstated would return call tomorrow if any issues arise with filling script. Rx admin counseling alsorequested by pharmacist when pt picks up rx. Unable to schedule repeat EGD at this time due to schedule unavailable. [facility] Eawrew79-83-5639 Telephone encounter Note* Telephone Encounter - KALYN Fulton CNP - 03/04/2022 7:35 AM EST Please call [facility] (surescripts ID: [facility] retail- [facility]) [phone] to request budesonide slurry d/t high cost [...] budesonide suspension. Will need repeat EGD after. [facility]01-24-2023 Telephone encounter Note* Telephone Encounter - Lupis Connors RN - 03/03/2022 12:55 PM EST Spoke with pt's daughter, Margarita in regards to rx instructions. Margarita stated that Flovent is almost$400 and did not picker packer. Is there an alternative rx that can be prescribed for this pt? [facility]01-24-2023 Miscellaneous Notes* Telephone Encounter - Lupis Connors RN - 03/03/2022 12:55 PM EST Spoke with pt's daughter, Margarita in regards to rx instructions. Margarita stated that Flovent is almost$400 and did not picker packer. Is there an alternative rx that can be prescribed for this pt? * Telephone Encounter - Keisha Weiss - 03/02/2022 1:05 PM EST Called pt and left a VM requesting a callback to go over providers recommendations. Callback numberprovided. * Telephone Encounter - Gin Finn APRN - ELIZABETH - 03/02/2022 10:20 AM EST Did anyone speak with her about the recommendations? * Telephone Encounter - Keisha Weiss - 03/02/2022 8:22 AM EST Called pt and spoke to her daughter and got her scheduled for a CLASSIFICATION CONTROL CLERK appointment on 03/13/22 at 2:40pm with Huma [...] my schedule to discuss. documented in this encounterSUniversity Hospitals Geneva Medical CenterCfrjnw74-03-4782 Telephone encounter Note* Telephone Encounter - Keisha Weiss - 03/02/2022 1:05 PM EST Called pt and left a VM requesting a callback to go over providers recommendations. Callback numberprovided. [id number] Miscellaneous Notes* Telephone Encounter - Keisha Weiss [...] daughter and got her scheduled for a CLASSIFICATION CONTROL CLERK appointment on 03/13/22 at 2:40pm with Huma [...] my schedule to discuss. documented in this encounterSUniversity Hospitals Geneva Medical CenterZeekbd03-91-9608 Telephone encounter Note* Telephone Encounter - KALYN Fulton CNP - 03/02/2022 10:20 AM EST Did anyone speak with her about the recommendations? [place]ervilleUnhwbm00-58-3393 Telephone encounter Note* Telephone Encounter - Keisha Weiss - 03/02/2022 8:22 AM EST Called pt and spoke to her daughter and got her scheduled for a CLASSIFICATION CONTROL CLERK appointment on 03/13/22 at 2:40pm with Huma Meyers. CentervilleVxcmrs83-83-4707 Telephone encounter Note* Telephone Encounter - Lupis Connors RN - 02/27/2022 1:49 PM EST Attempted contact with pt in regards to providers' recommendations. No answer. VM left. CentervilleBuytmp05-40-5073 Telephone encounter Note* Telephone Encounter - KALYN [...] new patient on my schedule to discuss. [id number] Note* Op Note - Mykel Powell MD - 02/23/2022 7:43 AM EST [facility] Ricardo Villal[facility] Procedure Date: 02/23/2022 [...] by the physician, the nurse and the security installer in the pre-procedure area in the procedure [...] loss: None. Procedure Code(s): --- Professional --- 28691, Esophagogastroduodenoscopy, flexible, transoral; with transendoscopic balloon dilation of esophagus (less than 30 mm diameter) 25553, 59, Esophagogastroduodenoscopy, flexible, transoral; with biopsy, single or multiple --- Technical --- 81012, Esophagogastroduodenoscopy, flexible, transoral; with transendoscopic balloon dilation of esophagus (less than 30 mm diameter) 28764, 59, Esophagogastroduodenoscopy, flexible, transoral; with biopsy, single or multiple Diagnosis Code(s): --- Professional --- K22.2, Esophageal obstruction K44.9, Diaphragmatic hernia without obstruction or gangrene R13.10, Dysphagia, unspecified --- Technical --- K22.2, Esophageal obstruction K44.9, Diaphragmatic hernia without obstruction or gangrene R13.10, Dysphagia, unspecified CPT copyright 2020 [employer]. All rights reserved. The codes documented in this report are preliminary and upon sales representative wire rope review may be revised to meet current compliance requirements. Attending Participation: I personally performed the entire procedure. MYKEL Powell MD 02/23/2022 8:09:15 AM This report has been signed electronically. Number of Addenda: 0 Note Initiated On: 02/23/2022 7:43 AM [id number] Note* Op Note - Mykel Powell MD - 02/23/2022 7:43 AM EST [facility] Patient Name: Ricardo Villalpando Procedure Date: 02/23/2022 [...] by the physician, the nurse and the security installer in the pre-procedure area in the procedure [...] loss: None. Procedure Code(s): --- Professional --- 09586, Esophagogastroduodenoscopy, flexible, transoral; with transendoscopic balloon dilation of esophagus (less than 30 mm diameter) 11326, 59, Esophagogastroduodenoscopy, flexible, transoral; with biopsy, single or multiple --- Technical --- 72304, Esophagogastroduodenoscopy, flexible, transoral; with transendoscopic balloon dilation of esophagus (less than 30 mm diameter) 68280, 59, Esophagogastroduodenoscopy, flexible, transoral; with biopsy, single or multiple Diagnosis Code(s): --- Professional --- K22.2, Esophageal obstruction K44.9, Diaphragmatic hernia without obstruction or gangrene R13.10, Dysphagia, unspecified --- Technical --- K22.2, Esophageal obstruction K44.9, Diaphragmatic hernia without obstruction or gangrene R13.10, Dysphagia, unspecified CPT copyright 2020 [employer]. All rights reserved. The codes documented in this report are preliminary and upon sales representative wire rope review may be revised to meet current compliance requirements. Attending Participation: I personally performed the entire procedure. MYKEL Powell MD 02/23/2022 8:09:15 AM This report has been signed electronically. Number of Addenda: 0 Note Initiated On: 02/23/2022 7:43 AM [id number] Miscellaneous Notes* Op Note - Mykel Powell MD - 02/23/2022 7:43 AM EST [facility] Patient Name: Ricardo Villalpando Procedure Date: [...] by the physician, the nurse and the security installer in the pre-procedure area in the procedure [...] loss: None. Procedure Code(s): --- Professional --- 83833, Esophagogastroduodenoscopy, flexible, transoral; with transendoscopic balloon dilation of esophagus (less than 30 mm diameter) 63564, 59, Esophagogastroduodenoscopy, flexible, transoral; with biopsy, single or multiple --- Technical --- 86223, Esophagogastroduodenoscopy, flexible, transoral; with transendoscopic balloon dilation of esophagus (less than 30 mm diameter) 90200, 59, Esophagogastroduodenoscopy, flexible, transoral; with biopsy, single or multiple Diagnosis Code(s): --- Professional --- K22.2, Esophageal obstruction K44.9, Diaphragmatic hernia without obstruction or gangrene R13.10, Dysphagia, unspecified --- Technical --- K22.2, Esophageal obstruction K44.9, Diaphragmatic hernia without obstruction or gangrene R13.10, Dysphagia, unspecified CPT copyright 2020 [employer]. All rights reserved. The codes documented in this report are preliminary and upon sales representative wire rope review may be revised to meet current compliance requirements. Attending Participation: I personally performed the entire procedure. MYKEL Powell MD 02/23/2022 8:09:15 AM This report has been signed electronically. Number of Addenda: 0 Note Initiated On: 02/23/2022 7:43 AM documented in this [facility]01-16-2023 History and physical note* Mykel Powell [...] proceed with planned procedure. [facility] Work Phone: 1(709) 711-551401-16-2023 History and physical note* Mykel Powell MD [...] procedure. [facility] documented in this [facility]04-27-2021 Hospital Discharge instructions* Instructions* Regina Gamboa RN - 06/04/2020 * Attachments The following attachments cannot be sent through Care Everywhere. * Thyroid: Biopsy: Fine-Needle: Post-op (Northern Irish) documented in this [facility] Work Phone: 1(163) 149-318301-11-2020 Hospital course Narrative* Gustavo Muniz MD - 02/18/2019 12:17 PM EST Discharge Summary Ricardo Jean-Baptiste Kwasi : 1940 ADMIT DATE: 02/11/2019 [...] for removal of stents DISCHARGE MEDICATIONS: Ricardo iVllalpando Home Medication Instructions JENNIFER:[id number] Printed on:02/18/19 1217 Medication Information aspirin 81 [...] Complexity: follow up within 7-14 calendar days (68525) [] Severe Complexity: follow up within 7 calendar days (01386) FOLLOW UP TESTING, PENDING RESULTS OR REFERRALS AT TRANSITIONAL CARE VISIT: [] Yes [] No PENDING STUDIES: No DISPOSITION: Home FACILITY/HOME CARE AGENCY NAME: Follow up with Follow-up With Details Why Contact Info Alisson Morton DO In [address] [facility] [address] [facility] [address] Osmar Anderson MD In 2 weeks [address] [facility] [facility] [id number] Lisa Smiley MD In 2 weeks [address] [facility] [address] [facility] [address] INSTRUCTIONS TO MA/SW: Please call patient on [...] MD 02/18/2019, 12:17 PM documented in this [facility] Work Phone: 1(370) 154-405801-11-2020 History of Present illness Narrative* Sharmila Lr [...] Date 02/18/19 0000 - 02/18/19 2359 Shift 6254-1921 8020-1973 [id number] 24 Hour Total INTAKE Shift Total(mL/kg) OUTPUT [...] GLUCOSE 182* 125* Hepatic: Recent Labs 02/16/19 0101 02/17/19 0042 AST 100* 62* ALT 81* 60 [...] 02/17/2019 3:22 PM EST Physical Therapy Facility/Department: [facility] MED SURG PT REEVALUATION NAME: Ricardo Villalpando [...] really good. G-Code OutComes Score AM-PAC Score [facility] Inpatient Mobility Raw Score : 18 (02/13/191721) [facility] Inpatient T-Scale Score : 43.63 (02/13/191721) Mobility [...] EST Hospitalist Progress Note 02/17/2019 9:03 AM [phone]: Please page me for patient care issues. [phone]: Please page [facility] night Hospitalist for any issues. Subjective: Admit Date: 02/11/2019 PCP: ALISSON MORTON DO Room#: [id number] Interval History: Patient seen and examined No [...] of Hospitalist Medicine Inpatient Medical Services PAGER: [phone] * Sharmila Lr MD - 02/17/2019 6:41 [...] BMI 21.80 kg/m INTAKE/OUTPUT: Date 02/17/19 - 02/17/192358 Shift 8655-9329 8573-0757 1035-2470 24 Hour Total INTAKE Shift Total(mL/kg) OUTPUT [...] 125* Hepatic: Recent Labs 02/15/19 0018 02/16/19 01002/17/19 0042 AST 80* 100* 62* ALT 76* [...] Anderson MD - 02/17/2019 4:58 PM EST [facility] - Surgery [facility] Physicians Surgery Patient Name: Ricardo Villalpando Date: [...] High Nutrient Needs: Estimated Daily Total Kcal: 1585-5747 (25-28) Estimated Daily Protein (g): 51-61 (1.0-1.2) [...] 6 months: (08/13/18) 139# --> (02/12/19) 113# [place] Body Wt: 100 lb (45.4 kg), BMI [...] Weight, Monitor Bowel Function Contact Number: pager [phone] * Carina Ovalles, OT - 02/16/2019 11:29 [...] Prognosis: Good Decision Making: Low Complexity Exam: [facility] OT Education: OT Role;Plan of Care;ADL [...] Ambulation Assistance: Independent Transfer Assistance: Independent Active Production Broacher: Yes Mode of Transportation: Car Occupation: Retired [...] Home Management Training, Cognitive/Perceptual Training OutComes Score [facility] Daily Activity Inpatient How much help for putting on and taking off regular lower body clothing?: A Little How much help for Bathing?: A Little How much help for Toileting?: A Little How much help for putting on and taking off regular upper body clothing?: None How much help for taking care of personal grooming?: None How much help for eating meals?: None [facility] Inpatient Daily Activity Raw Score: 21 [facility] Inpatient ADL T-Scale Score : 44.27 ADL [...] Plan of Care supervision is transferred to [facility] Occupational Therapist. Carina Ovalles OTR/L * Debbi [...] EST Hospitalist Progress Note 02/16/2019 8:32 AM [phone]: Please page me for patient care issues. [phone]: Please page [facility] night Hospitalist for any issues. Subjective: Admit Date: 02/11/2019 PCP: ALISSON MORTON DO Room#: [id number] Interval History: Patient seen and examined No [...] of Hospitalist Medicine Inpatient Medical Services PAGER: [phone] Addendum patient was complaining of abdominal pain [...] (36.6 C) Min: 97 F (36.1 C) Max: 99.5 F (37.5 C) RESPIRATIONS RANGE: Resp Av.5 Min: 16 Max: 18 PULSE RANGE: Pulse Av.5 Min: 63 Max: 80 BLOOD PRESSURE RANGE: Systolic (24hrs), Av , Min:121 , Max:167 ; Diastolic (24hrs), Av, Min:55, Max:75 PULSE OXIMETRY RANGE: SpO2 Av.9 % Min: 92 % Max: 100 % 24HR INTAKE/OUTPUT: Intake/Output Summary (Last 24 hours) at 02/16/2019 0731 Last data filed at 02/16/2019 0534 Gross [...] EST Hospitalist Progress Note 02/15/2019 8:29 AM [phone]: Please page me for patient care issues. [phone]: Please page [facility] night Hospitalist for any issues. Subjective: Admit Date: 02/11/2019 PCP: ALISSON MORTON DO Room#: [id number] Interval History: Patient seen and examined No [...] of Hospitalist Medicine Inpatient Medical Services PAGER: [phone] * Carina Ovalles OT - 02/15/2019 7:10 AM EST Occupational Therapy OT Hold Note OT eval and treat orders received. Pt is scheduled for ERCP and cholecystectomy today. Will hold OTeval until after surgery. Carina Ovalles OTR/L * Gustavo Muniz MD - 02/14/2019 12:11 PM EST Hospitalist Progress Note 02/14/2019 12:11 PM [phone]: Please page me for patient care issues. [phone]: Please page [facility] night Hospitalist for any issues. Subjective: Admit Date: 02/11/2019 PCP: ALISSON MORTON DO Room#: [id number] Interval History: Patient seen and examined No [...] of Hospitalist Medicine Inpatient Medical Services PAGER: [phone] * Lila Vance PA-C - 02/14/2019 10:02 [...] 02/13/2019 5:21 PM EST Physical Therapy Facility/Department: [facility] MED SURG Initial Assessment NAME: Ricardo Villalpando [...] Ambulation Assistance: Independent Transfer Assistance: Independent Active Production Broacher: Yes Mode of Transportation: Car Occupation: Retired [...] High Nutrient Needs: Estimated Daily Total Kcal: 9862-8190 (25-28) Estimated Daily Protein (g): 51-61 (1.0-1.2) [...] cm) Current Body Wt: 113 lb (51.3 kg)(1/5 standing scale) Admission Body Wt: 103 lb (46.7 kg)(stated) % Weight Change: , 18.7% weight loss in 6 months: (08/13/18) 139# --> (02/12/19) 113# [place] Body Wt: 100 lb (45.4 kg), BMI [...] Constipation, Monitor Bowel Function Contact Number: pager [phone] * Lila Vance PA-C - 02/13/2019 10:50 [...] EST Hospitalist Progress Note 02/13/2019 8:42 AM [phone]: Please page me for patient care issues. [phone]: Please page [facility] night Hospitalist for any issues. Subjective: Admit Date: 02/11/2019 PCP: ALISSON MORTON DO Room#: [id number] Interval History: Patient seen and examined No [...] Q8H LABS: CBC: Recent Labs 02/11/19 0726 02/12/194 02/13/19 005 WBC 9.9 5.5 5.7 RBC 3.60* 3.37* 3.48* HGB 11.8 11.1* 11.6* HCT 34.8* 32.5* 32.8* MCV 96.7 96.5 94.4 RDW 12.4 12.4 12.3 PLT 193 163 196 BMP: Recent Labs 02/11/19 0726 02/12/19 0054 02/13/19 005 NA 142 142 142 K 3.7 3.6 3.4* CL 111* 110* 108* CO2 27 27 26 BUN 15 11 6* CREATININE 0.72 0.78 0.68 GLUCOSE 120* 84 93 CALCIUM 8.9 8.8 9.0 ANIONGAP 5 4 7 LIVER PROFILE: Recent Labs 02/11/19 0726 02/12/194 02/13/19 005 AST 76* 87* 62* ALT [...] of Hospitalist Medicine Inpatient Medical Services PAGER: [phone] * Sonny Peres MD - 02/12/2019 10:47 AM EST Hospitalist Progress Note 02/12/2019 10:48 AM Subjective: Admit Date: 02/11/2019 PCP: ALISSON MORTON DO Interval History: No overnight issues. Pt denies any abdominal pain DIET FULL LIQUID; Date 02/12/19 0000 - 02/12/19 2359 Shift 0726-0080 1625-2557 0496-6899 24 Hour Total INTAKE P.O.(mL/kg/hr) 0(0) 0 [...] Date PHART 7.464 08/05/2018 PO2ART 113.3 08/05/2018 QVN6FLT 32.7 08/05/2018 Recent Labs 02/11/19 1100 02/12/19 [...] If patient is beta-lactam allergic, please call [facility] Microbiology lab ([phone]) within 2 days to request susceptibility testing. [...] Code Discharge planning: TBD Sonny Peres MD [facility] Hospitalist * Devan Fitzgerald MD - 02/11/2019 [...] or concerns. -2 Department of General Surgery #[id number] [facility] Work Phone: [phone] 211-754301-06-2020 Hospital Discharge instructions* Discharge Instr - Activity* [...] sent through Care Everywhere. * Cholecystectomy: Post-op ([place] Irish) documented in [facility] encounter[facility] Work Phone: Consult note Author Elina Alexander [facility] Note Date/Time October 05, 2024 8: 37am [facility] Medical Records Department [address] [place] [address] Pre-Anesthesia Evaluation 10/05/24 0833 MR#: [id number] Acct: [id number] Name: RICARDO VILLALPANDO Rep #:[id number] : 1940 83 From: Elina collins CRNA PCP: Alisson Morton DO Status:REG SDC Y Race: C Location: [place] [address] ASA Classification* ASA Classification ASA Classification: 3 [...] Procedure(s): EGD Anesthesia History Anesthesia History - traveling engineer: Anesthesia History - traveling engineer Hx Hospitalization Yes: 06/2022 LOWER LEGS EDEMA [...] take am of surgery PONV PONV - traveling engineer: PONV - traveling engineer Female Yes 10/05/24 07:47 HX of Motion [...] 10/05/24 08:07 Respiratory Assessment Respiratory Assessment - traveling engineer: Respiratory Tract Infection Hx - traveling engineer Hx Respiratory Tract Infection No 08/27/24 10:39 STOP Sleep Apnea STOP Sleep Apnea - traveling engineer: STOP Sleep Apnea - traveling engineer Hx Hypertension Yes 10/05/24 07:47 Hx Sleep [...] Tobacco Use History Tobacco Use History - traveling engineer: Tobacco Use History - traveling engineer Tobacco Use Smoking Status Never smoker 10/05/24 07:47 Hx Tobacco Use No 10/05/24 07:47 Years Smoking Packs Smoked per Day Smoking Cessation Date was within the last 15 years Hx Smoking Cessation Date Hx Smoking Cessation Counseling Hematologic Medial History Hematologic Hx - traveling engineer: 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 Specify any problems Hx of Preganancy in last 3 Months Nurse Filling Out Transfusion & Questions: Date: Time: Patient unable to answer at Yes 10/05/24 07:47 this time (ie. confused, unrespo /Reproduction History /Reproductive History - traveling engineer: /Reproductive Hx- traveling engineer Hx Now No 10/05/24 07:47 Gestational Age [...] Paroxysmal atrial fibrillation Atherosclerotic heart disease of hopi coronary artery without angina pectoris Persistent atrial [...] and no additional complaints, except as documented. 10/05/24836 <Electronically signed by Elina tolentino CRNA> Date _ Elina Alexander CRNA Cosigner Signature: Date CC: ~ Signed [facility] Work Phone: Consult note Author Artem Oh [facility] Note Date/Time October 05, 2024 10 :06am [facility] Medical Records Department [address] [place] [address] Anesthesia Postop Eval I 10/05/24920 MR#: [id number] Acct: [id number] Name: RICARDO VILLALPANDO Rep #:[id number] : 1940 83 From: Artem Oh PCP: Alisson Morton DO Status:REG [facility] Y Race: C Location: [place] [address] Anesthesia: Postop Eval I Current Vital Signs [...] by Artem Oh > Date _ Artem Driscoll Signature: Date CC: ~ Signed [facility] Work Phone: Evaluation note* Diagnosis Left thyroid [...] Work Phone: Evaluation noteNo assessment information available [facility] Work Phone: Evaluation note* Diagnosis 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) documented in this encounter [facility] Work Phone: Evaluation note* Diagnosis Onset Date Resolution Status Dysphagia acute History of esophageal stricture acute History of hypertension acut e [facility] Work Phone: Evaluation note* Diagnosis Other specified symptoms and signs involving the circulatory and respiratory systems [facility] Diagnosis Anemia- Primary Unspecified anemia Anemia Unspecified anemia Hyponatremia Hyposmolality and/or hyponatremia Hepatitis Unspecified hepatitis [facility] Diagnosis Coronary artery disease involving hopi coronary artery of hopi heart without angina pectoris- Primary Persistent atrial fibrillation (HCC) Atrial fibrillation Mixed hyperlipidemia [facility]* Diagnosis Other specified symptoms and signs involving the circulatory and respiratory systems- Primary Other specified symptoms and signs involving the circulatory and respiratory systems documented in this encounter [facility] note* Diagnosis Other specified abnormal findings of blood chemistry documented in this encounter [facility] note* Diagnosis Other persistent atrial fibrillation (HCC)- Primary documented in this encounter [facility] note* Diagnosis Hyperlipidemia, unspecified- Primary documented in this encounter [facility] note* Diagnosis Onset Date Resolution Status Dysphagia acute Alzheimer's dementia [place] Work Phone: Evaluation note* Diagnosis Injury of head, initial encounter- Primary [facility]* Diagnosis Dorsalgia, unspecified- Primary Unspecified urinary incontinence documented in this encounter [facility] note* Diagnosis Coronary artery disease involving hopi coronary artery of hopi heart without angina pectoris- Primary Persistent atrial fibrillation (HCC) Atrial fibrillation Mixed hyperlipidemia Vascular dementia, unspecified dementia severity, unspecified whether behavioral, psychotic, or mood disturbance or anxiety (HCC) documented in this encounter [facility] note* Diagnosis Other specified abnormal findings of blood chemistry documented in this encounter [facility] note* Diagnosis Other specified diseases of liver [facility]* Diagnosis Dysphagia Esophageal obstruction Stricture and stenosis of esophagus Dementia (HCC) Other persistent mental disorders due to conditions classified elsewhere Stented coronary artery Postsurgical percutaneous transluminal coronary angioplasty status [facility]* Diagnosis Eosinophilic esophagitis- Primary [facility]* Diagnosis Eosinophilic esophagitis- Primary documented in this encounter [facility] note* Diagnosis Eosinophilic esophagitis- Primary [facility]* Diagnosis Eosinophilic esophagitis- Primary [facility]* Diagnosis Other specified abnormal findings of blood chemistry- Primary Other specified abnormal findings of blood chemistry documented in this encounter [facility] note* Diagnosis Other specified abnormal findings of blood chemistry- Primary Other specified abnormal findings of blood chemistry documented in this encounter [facility] note* Diagnosis Other specified diseases of liver- Primary Other specified diseases of liver documented [facility]* Diagnosis Coronary artery disease involving hopi coronary artery of hopi heart without angina pectoris- Primary Persistent atrial fibrillation (HCC) Atrial fibrillation Mixed hyperlipidemia documented in this encounter [facility] Discharge instructions* Instructions* Juanis Maldonado [...] mild sore throat. You may use an ifbd-cta-sjnrykq chloraseptic spray, gargle with warm salt water, [...] an upset belly after: o Coffee o Larue fruits and juices o Tomato products o [...] 2013-11-16 Last Updated 02/15/16 documented in this encounter[facility] Work Phone: Hospital Discharge instructions* Attachments The following attachments cannot be sent through Care Everywhere. * Upper GI Endoscopy Discharge Instructions ([place] Irish) [facility] (narrative)No reason for referral information [facility] Work Phone: Reason for visit Narrative* Imaging (Routine) - Closed Specialty Diagnoses / Procedures Referred By Contac t Referred To Contact Radiology Diagnoses Other specified diseases of liver Procedures MR abdomen w and wo contrast Alisson Morton, DO [address] [place] [address] Phone: tel: fax: [facility] MRI [address] [place] [address] Phone: tel: Referral ID Status Reason Start Date Expiration Date Visits Re quested Visits Authorized [id number] Closed 12/01/2023 11/30/2024 [facility] of Present Illness * Yaz Bowman [...] CBC. Discussed with patient, daughter, and staff internist office based only. Will continue to monitor. OK to discharge at anytime fromHeme/Onc perspective. Total visit time 25 minutes. * Yaz Bowman RN - 09/21/2018 2:20 PM EDT Patient returned from [facility]. Vital signs obtained. Appears stable at this time. Family at bedside. No needs identified. Will continue to monitor. * Juana Rooney RN - 09/21/2018 1:37 PM EDT POST ENDOSCOPY PROCEDURE TRANSFER REPORT Procedure completed: colonoscopy Specimens obtained:polyp removed Medications administered:propofol 250 mg Additional Info: tolerated well For additional Questions please call Endoscopy at [phone]. Thank You! * Yaz Bowman RN - 09/21/2018 8:24 AM EDT Daughter bernardo notified via telephone that patient would be going to endo at approx 1100. * Thania Leong MD - 09/20/2018 4:35 PM EDT No further spotting today. Pain has greatly improved. In the process of bowel prep for colonoscopy tomorrow. No anesthesiologist physician concerns at this time. * Haily Mcghee [...] 15 08/05/2018 Lab Results Component Value Date [id number] 815 08/06/2018 Lab Results Component Value Date FOLATE >20.0 08/06/2018 LDH 182 ASSESSMENT AND PLAN Review of records from [facility] reveals that patient did in fact receive complete course of Venoferinfusions - the last being 09/06/2018. Colonoscopy tomorrow. RBC morphology still pending. Discussedwith patient and staff internist office based only. Will continue to monitor. Total visit time > 35 minutes. * Madison Jane, GEOPHYSICAL PARTY CHIEF - 09/20/2018 1:00 PM EDT Physical Therapy Facility/Department: [facility] TELEMETRY Daily Treatment Note NAME: Ricardo [...] GBS colonization of urine 8. Hx of CAD/[place]/stents recently on ASA and Plavix, Cardiology will not agree to withholding either at this time 9. Hx of anemia and transfusions, ? of MDS, will re-consult Dr. Amin 10. Vaginal bleeding, consult CLIPPER OPERATOR no workup needed Plan Colonoscopy tomorrow Advance Directive: Full Code DVT prophylaxis scd's Active Problems: Coronary artery disease involving hopi coronary artery of hopi heart without angina pectoris Abdominal pain Resolved Problems: * No resolved hospital problems. * ALISSON MORTON DO * Kiok Lau MD - 09/19/2018 3:58 PM EDT [...] Risksreviewed .Active Problems: Coronary artery disease involving hopi coronary artery of hopi heart without angina pectoris Abdominal pain Resolved [...] 2. Active Problems: Coronary artery disease involving hopi coronary artery of hopi heart without angina pectoris Abdominal pain Resolved Problems: * No resolved hospital problems. * DIMITRIS CAVAZOS MD * Constance Crenshaw, CONTINUOUS MINING MACHINE LODE MINER - OPERATING ROOM SCHEDULER - 09/19/2018 11:46 AM EDT CARDIOLOGY PROGRESS [...] AC Active Problems: Coronary artery disease involving hopi coronary artery of hopi heart without angina pectoris Abdominal pain Resolved [...] Pulse: 89 82 92 101 Resp: 18 18 16 Temp: 98.1 F (36.7 C) [...] collapses by greater than 50% with inspiration. [facility]: 08/04/2018 1. Acute coronary syndrome. [...] team, GI and heme/onc Vaginal bleeding - CLIPPER OPERATOR consulted Dispo: will continue to follow Electronicallysigned [...] due to elevated lipase over weekend - CLIPPER OPERATOR consulted for vaginal bleeding - Regular Diet - prn pain/nausea medication - activity as tolerated - disposition: stable from surgery standpoint, continue po ABX,, f/u with Dr. Ash in 1 month Patient counseled on risks, benefits, and alternatives of treatment plan today. Patient states an understanding and willingness to proceed with plan. Adela Reeves PA-C Personal Pager [phone] [facility] Surgery Pager [phone] during hours 7:30a-4:30p Wednesday-Wednesday After hours, please contact physician school community relations coordinator. * Seema Cabral MD - 09/18/2018 2:38 [...] 11.3* 11.8 PLT 247 281 Recent Labs 09/16/1844509/17/18 0431 09/18/18 0352 NA 135 139 136 K 3.2* 3.3* 3.6 CL 99 104 102 CO2 29 27 28 BUN 11 8 10 CREATININE 0.75 0.66 0.70 GLUCOSE 131* 141* 133* Recent Labs 09/16/1844509/17/181 09/18/18 0352 AST 133* 76* 69* ALT [...] GBS colonization of urine 8. Hx of CAD/[place]/stents recently on ASA and Plavix, Cardiology will not agree to withholding either at this time 9. Hx of anemia and transfusions, ? of MDS, will re-consult Dr. Amin 10. Vaginal bleeding, consult CLIPPER OPERATOR Advance Directive: Full Code DVT prophylaxis scd's Discharge planning: home Active Problems: Coronary artery disease involving hopi coronary artery of hopi heart without angina pectoris Abdominal pain Resolved Problems: * No resolved hospital problems. * Seema Cabral MD * Franklin Aviles, PT - 09/18/2018 10:32 AM EDT Physical Therapy Facility/Department: [facility] TELEMETRY Daily Treatment Note [...] Aviles PT * Noelle Manrique, KALYN - OPERATING ROOM SCHEDULER - 09/18/2018 10:21 AM EDT CARDIOLOGY PROGRESS NOTE Chart and interval events reviewed. Reason for Visit hospital follow up CAD SUBJECTIVE: Ricardo Villalpando states abd pain resolved. No CP (was anginal sx w/NY), palpitations, dizziness, syncope. Up in chair in [...] AC Active Problems: Coronary artery disease involving hopi coronary artery of hopi heart without angina pectoris Abdominal pain Resolved [...] had rectal or vaginal bleeding. Had -ve anesthesiologist physician eval 1 week ago. Was treated with [...] per surgery and cardiology due to recent [place], stents, anticoag. Begin Yeny in the interim. [...] prn pain/nausea medication - activity as tolerated Pager:[phone] Associated attestation - Donald Ash MD - [...] High Nutrient Needs: Estimated Daily Total Kcal: 8239-3150 Estimated Daily Protein (g): 55-66 Nutrition Diagnosis: [...] , 12.9% wt loss in 2 mo [place] Body Wt: 115 lb (52.2 kg), % [place] Body 106% BMI Classification: BMI 18.5 - [...] They would most likely benefit from a hazardous substances scientist consult. Spoke to Dr. Cabral re: family [...] GBS colonization of urine 7. Hx of CAD/[place]/stents recently on ASA and Plavix, Cardiology will [...] Date 09/17/18 0000 - 09/17/18 2359 Shift 6134-3249 0778-1045 4443-0851 24 Hour Total INTAKE I.V.(mL/kg) 900(16.2) 900(16.2) Shift Total(mL/kg) 900(16.2) 900(16.2) OUTPUT Urine(mL/kg/hr) 800 800 Shift Total(mL/kg) 800(14.4) 800(14.4) Weight (kg) 55.6 55.6 55.6 55.6 I/O last 3 completed shifts: In: 1740 [P.O.:840; I.V.:900] Out: 1625 [Urine:1625] No intake/output data recorded. Data Recent Labs 09/15/18135409/16/18445 WBC 8.8 8.1 HGB 12.0 11.3* HCT 36.5 34.0* PLT 275 247 Recent Labs 09/15/18 13509/16/186 09/17/18 0431 NA 139 135 139 K 3.4* 3.2* 3.3* CL 100 99 104 CO2 33* 29 27 BUN 13 11 8 CREATININE 0.83 0.75 0.66 GLUCOSE 111* 131* 141* Recent Labs 09/15/18 13509/16/1844509/17/18 043 AST 216* 133* 76* ALT 191* 145* [...] need for surgical intervention; patient recently had [place] with 2x stents in August 04 2018, on dual antiplatelet therapy. - Epigastric/RUQ abdominal pain resolved - Regular Diet - Attempt non-operative management secondary to recent stents, start PO Augmentin - HIDA scan cancelled - GI following - prn pain/nausea medication - activity as tolerated Pager:[phone] * Dimitris Cavazos MD - 09/16/2018 3:09 [...] 09/16/2018 11:21 AM EDT Patient arrived to [facility] for her Hida Scan. Her [...] 09/16/2018 10:15 AM EDT Physical Therapy Facility/Department: [facility] TELEMETRY Initial Assessment NAME: Ricardo Villalpando [...] Care;General Safety Barriers to Learning: Pt is [place] which may impact her ability to learn [...] Left in bed, Nurse notified OutComes Score [facility] Mobility Inpatient How much difficulty turning over [...] climbing 3-5 steps with a railing?: Total [facility] Inpatient Mobility Raw Score : 16 [facility] Inpatient T-Scale Score : 40.78 Mobility Inpatient CMS 0-100% Score: 54.16 Mobility Inpatient CMS G-Code Modifier : CK AM-PAC Score AM-PAC Inpatient Mobility Raw Score : 16 (09/16/18 1005) AM-PAC Inpatient T-Scale Score : 40.78 (09/16/185) Mobility Inpatient CMS 0-100% Score: 54.16 (09/16/18 1005) Mobility Inpatient CMS G-Code Modifier : CK (09/16/18 1005) Goals Short term goals Time Frame for [...] Time Individual Concurrent Group Co-treatment Time In 0914 Time Out 0932 Minutes 18 Amelia Gonzalez [...] pain, unspecified site Coronary artery disease involving hopi coronary artery of hopi heart without angina pectoris Iron deficiency anemia Iron deficiency anemia, unspecified Diagnosis Coronary artery disease involving hopi coronary artery of hopi heart without angina pectoris Dyslipidemia Other and unspecified hyperlipidemia Diagnosis Nontoxic single thyroid nodule Nontoxic uninodular goiter Diagnosis Thyroid nodule Nontoxic uninodular goiter Advance Directives No Advanced Directives Records FoundDocuments on File Type Date Recorded Patient Scale Mechanic Expl anation Advance Directives and Livin g Will Advance Directives and Livin g Will 08/09/2018 2:28 PM Advance Directives and Livin g Will 08/19/2018 2:08 PM Power of Protector Plate Attacher Latest Code Status on File Code Status Date Activated Date Inactivated Comments Full Code 09/15/2018 1:35 PM Full Code 08/04/2018 8:50 PM 08/08/2018 6:48 PM Full Code 08/04/2018 8:50 PM 08/04/2018 8:50 PM Documents on File Type Date Recorded Patient Scale Mechanic Expl anation Advance Directives and Livin g Will Advance Directives and Livin g Will 08/09/2018 2:28 PM Advance Directives and Livin g Will 08/19/2018 2:08 PM Advance Directives and Livin g Will 02/22/2019 10:08 AM Advance Directives and Livin g Will 03/09/2019 1:06 PM Power of Protector Plate Attacher Latest Code Status on File Code Status Date Activated Date Inactivated Comments Full Code 02/14/2019 10:08 AM 02/18/2019 4:36 PM Full Code 02/11/2019 12:28 PM 02/14/2019 10:08 AM Full Code 09/15/2018 1:35 PM 09/21/2018 7:54 PM Documents on File Type Date Recorded Patient Scale Mechanic Expl anation Advance Directives and Livin g Will Advance Directives and Livin g Will 08/09/2018 2:28 PM Advance Directives and Livin g Will 08/19/2018 2:08 PM Advance Directives and Livin g Will 02/22/2019 10:08 AM Advance Directives and Livin g Will 03/09/2019 1:06 PM Advance Directives and Livin g Will 04/05/2019 3:18 PM Power of Protector Plate Attacher Documents on File Type Date Recorded Patient Scale Mechanic Expl anation ACP-Advance Directive ACP-Advance Directive 08/09/2018 2:28 PM ACP-Advance Directive 08/19/2018 2:08 PM ACP-Advance Directive 02/22/2019 10:08 AM ACP-Advance Directive 03/09/2019 1:06 PM ACP-Advance Directive 04/05/2019 3:18 PM ACP-Power of Protector Plate Attacher Documents on File Type Date Recorded Patient Scale Mechanic Expl anation ACP-Advance Directive ACP-Advance Directive 08/09/2018 2:28 PM ACP-Advance Directive 08/19/2018 2:08 PM ACP-Advance Directive 02/22/2019 10:08 AM ACP-Advance Directive 03/09/2019 1:06 PM ACP-Advance Directive 04/05/2019 3:18 PM ACP-Power of Protector Plate Attacher Latest Code Status on File Code Status Date Activated Date Inactivated Comments Full Code 02/14/2019 10:08 AM 02/18/2019 4:36 PM Full Code 02/11/2019 12:28 PM 02/14/2019 10:08 AM Full Code 09/15/2018 1:35 PM 09/21/2018 7:54 PM Full Code 08/04/2018 8:50 PM 08/08/2018 6:48 PM Full Code 08/04/2018 8:50 PM 08/04/2018 8:50 PM Documents on File Type Date Recorded Patient Scale Mechanic Expl anation ACP-Advance Directive ACP-Power of Protector Plate Attacher ACP-Advance Directive 04/05/2019 3:18 PM ACP-Advance Directive 03/09/2019 1:06 PM ACP-Advance Directive 02/22/2019 10:08 AM ACP-Advance Directive 08/19/2018 2:08 PM ACP-Advance Directive 08/09/2018 2:28 PM Latest Code Status on File Code Status Date Activated Date Inactivated Comments Full Code 02/14/2019 10:08 AM Documents on File Type Date Recorded Patient Scale Mechanic Expl anation Advance Directives and Livin g Will Advance Directives and Livin g Will 08/09/2018 2:28 PM Advance Directives and Livin g Will 08/19/2018 2:08 PM Advance Directives and Livin g Will 02/22/2019 10:08 AM Power of Protector Plate Attacher Advance Directive Response Recorded Date/ Time Living Will No February 10 0 3:40pm Power of Protector Plate Attacher Yes February 10, 020 3:40pm Advance Directive Response Recorded Date/ Time Name of Medical Power of Protector Plate Attacher Margarita Cornell - daughter May 12, 2022 12:29pm Living Will Yes May 12, 2022 12:29pm Power of Protector Plate Attacher Yes May 12 12:29pm Advance Directive Response Recorded Date/ Time Name of Medical Power of Protector Plate Attacher Margarita Cornell - daughter May 12, 2022 12:29pm Name of Medical Power of Protector Plate Attacher MARGARITA CORNELL June 01, 2022 8:32pm Living Will Yes June 01, 2022 8:32pm Power of Protector Plate Attacher Yes June 01 8:32pm Documents on File Type Date Recorded Patient Scale Mechanic Expl anation Advance Directives and Living Will 04/04/2019 Advance Directives and Living Will 03/07/2019 Advance Directives and Living Will 02/11/2019 Latest Code Status on File Code Status Date Activated Date Inactivated Comments Full Code 06/13/2022 4:30 PM Healthcare Agents on File Name Relationship Healthcare Agent Relationshi p Communication Margarita Maguireali Child Health Care Agent Documents on File Type Date Recorded Patient Scale Mechanic Expl anation Advance Directives and Living Will [...] Communication Margarita Maguireali Child Health Care Agent Latest Code Status on File Code Status Date Activated Date Inactivated Comments Full Code 06/13/2022 4:30 PM 06/16/2022 10:36 PM Healthcare Agents on File Name Relationship Healthcare Agent Relationshi p Communication Margarita Maguireali Child Health Care Agent Healthcare Agents on File Name Relationship Healthcare Agent Relationshi p Communication Margarita Maguireali Child Health Care Agent [phone] (Home) Healthcare Agents on File Name Relationship Healthcare Agent Relationshi p Communication Margaritasuman Maguireali Child Health Care Agent Advance Directive Response Recorded Date/ Time Living Will Yes June 01, 2022 8:32pm Power of Protector Plate Attacher Yes June 01 8:32pm Healthcare Agents on [...] Date/ Time Name of Medical Power of Protector Plate Attacher DAUGHTER December 29, 2022 12:22pm Living Will Yes December 29, 2 023 12:22pm Power of Protector Plate Attacher Yes December 29, 2022 12:22pm Advance Directive Response Recorded Date/ Time Name of Medical Power of Protector Plate Attacher DAUGHTER December 29, 2022 12:22pm Name of Medical Power of Protector Plate Attacher daughter April 04, 2023 11:12am Living Will Yes April 04, 2 024 11:12am Power of Protector Plate Attacher Yes April 04, 2023 11:12am Healthcare Agents on File Name Relationship Healthcare Agent Relationshi p Communication Margarita Demali Child Health Care Agent [phone] (Home) Healthcare Agents on File Name Relationship Healthcare Agent Relationshi p Communication Margarita Demali Child Health Care Agent [phone] (Home) Date Activated Date Inactivated Comments 06/13/2022 4:30 [...] Demali Child Health Care Agent [phone] (Mobile)[email or web address] Date Activated Date Inactivated Comments 06/13/2022 4:30 PM 06/16/2022 10:36 PM Healthcare Agents on File Name Relationship Healthcare Agent Donna p Communication Margarita Cornell Child Health Care Agent [email or web address] Agents on File Name Relationship Healthcare Agent Donna p Communication Margarita Cornell Child Health Care Agent [email or web address] Agents on File Name Relationship Healthcare Agent Donna p Communication Margarita Cornell Daughter Health Care Agent [email or web address] Advance Directive Response Recorded Date/ Time Do you have a Healthcare Power of Protector Plate Attacher? Yes October 05, 2024 7:47am Summary Purpose Family History No Family History Records Found Relationship Condition Age at Onset Recorded Date/T ranjana Not Specified Unknown Reason for Referral Status Reason Specialty Diagnoses / Procedures Referre d By Contact Referred To Contact Open Radiology Diagnoses Thyroid nodule Procedures US FINE NEEDLE ASPIRATION Zoe Wyatt APRN - OPERATING ROOM SCHEDULER [address] [facility] [address] [place] [address] Status Reason Specialty Diagnoses / Procedures Referre d By Contact Referred To Contact Open Radiology Diagnoses Thyroid nodule Procedures US Thyroid Zoe Wyatt APRN - OPERATING ROOM SCHEDULER [address] [facility] [address] [place] [address] Status Reason Specialty Diagnoses / Procedures Referre d By Contact Referred To Contact Open Radiology Diagnoses Left thyroid nodule Procedures US GUIDED THYROID BIOPSY PERCUTANEOUS Adela Reeves PA-C [address] [facility] [address] [place] [address] Specialty Diagnoses / Procedures Referred By Elzbieta baeza Referred To Contact Cardiology Diagnoses Other specified symptoms and signs involving the circulatory and respiratory systems Procedures Vascular US carotid artery duplex bilateral Alisson Morton, DO [address] [place] [address] Referral ID Status Reason Start Date Expiration Date Visits Requested Visits Authorized [id number] Pending Review Perform Procedure 05/27/2022 11/23/2022 1 1 Discharge Instructions * Attachments The following attachments cannot be sent through Care Everywhere. * Thyroid: Biopsy: Fine-Needle: Post-op (Northern Irish) * Thyroid Nodules (Northern Irish) documented in this encounter Chief Complaint and [...] Dysphagia Alzheimer's dementia Chief Complaint Admit Date CUSTODIAL LAB WORK March 16, 2024 5:00am MONTHLY EXAM March 21, 2024 2:27pm MONTHLY EXAM April 10, 2024 2:51 pm MONTHLY EXAM May 09, 2024 4:31 pm Chief Complaint Admit Date MONTHLY EXAM May 09, 2024 4:31 pm LABWORK June 12, 2024 5:00am needs to schedule esophagus stretching J [facility] 2024 9:09am Chief Complaint Admit Date MONTHLY EXAM May 09, 2024 4:31 pm LABWORK June 12, 2024 5:00am MONTHLY/ADMISSION EXAM June 20, 2024 10 :15pm needs to schedule esophagus stretching J [facility] 2024 9:09am Reason for Visit Admit Date Dysphagia August 18, 2024 9:09 am Esophageal stenosis August 18, 2024 9:09 am Chief Complaint Admit Date MONTHLY EXAM May 09, 2024 4:31 pm LABWORK June 12, 2024 5:00am MONTHLY/ADMISSION EXAM June 20, 2024 10 :15pm LABWORK August 09, 2024 5:00a m needs to schedule esophagus stretching J [facility] 2024 9:09am NEW CONCERN August 27, 2024 [...] schedule esophagus stretching J jw 2024 9:09am CUSTODIAL LAB WORK September 14, 2024 4 :00am Reason for Visit Admit Date Dysphagia August 18, 2024 9:09 am Esophageal stenosis August 18, 2024 9:09 am Dysphagia October 05, 2024 7: 18am Esophageal stenosis October 05, 2024 7: 18am Additional Source Comments INFORMATION SOURCE (unrecogn ized section and content) DATE CREATED AUTHOR 03/21/2019 [facility] DATE CREATED AUTHOR AUTHOR'S ORGANIZ ATION 07/01/2019 [facility] DATE CREATED AUTHOR AUTHOR'S ORGANIZ ATION 10/07/2019 [facility] DATE CREATED AUTHOR AUTHOR'S ORGANIZ ATION 12/02/2019 [facility] DATE CREATED AUTHOR AUTHOR'S ORGANIZ ATION 05/16/2021 [facility] DATE CREATED AUTHOR AUTHOR'S ORGANIZ ATION 08/23/2024 [facility] [employer] [facility] DATE CREATED AUTHOR AUTHOR'S ORGANIZ ATION [facility] Reason for Visit (unrecogniz ed section and content) Reason Comments Other transfer. Dx with ch olecystitis Specialty Diagnoses / Procedures Referred By Contac t Referred To Contact Cardiology Diagnoses Other specified symptoms and signs involving the circulatory and respiratory systems Procedures Vascular US carotid artery duplex bilateral Alisson Morton, [place] [address] Referral ID Status Reason Start Date Expiration Date Visits Requested Visits Authorized [id number] Pending Review Perform Procedure 05/27/2022 11/23/2022 1 1 Reason Comments Leg Swelling Specialty Diagnoses / Procedures Referred By Contac t Referred To Contact Diagnoses Hyponatremia Anemia Hepatitis Procedures . Alisson Morton DO [address] [place] [address] [facility] [address] Telemetry [address] [place] [address] Referral ID Status Reason Start Date Expiration Date Visits Re quested Visits Authorized [id number] 1 1 Reason Comments Med Refill Reason Comments 1 Year Follow-up Coronary Artery Disease Reason Onset Date Comments Cardiac Clearance 12/09/2022 Reason Onset Date Comments Fall 07/20/2023 Reason Onset Date Comments Cardiac Clearance 07/23/2023 Specialty Diagnoses / Procedures Referred By Elzbieta Referred To Contact Diagnoses Dysphagia Dysphagia [R13.10] Procedures [place] ESOPHAGOGASTRODUODENOSCOPY TRANSORAL DIAGNOSTIC EGD DIAGNOSTIC Mykel Powell MD [address] [address] [facility] [address] [place] [phone] Referral ID Status Reason Start Date Expiration Date Visits Re quested Visits Authorized [id number] 1 1 Reason Onset Date Comments Medication [...] Care Teams (unrecognized sec tion and content) Director Supplier Quality Relationship Specialty Start Date End Date Alisson Morton DO [address] [place] [address] PCP - General 09/05/18 Team Status: Active Member Role Status Dates Dr. Alisson Morton DO Family Provider Active Dr. Alisson Morton DO Primary Care Provider Active Team Status: Active Member Role Status Dates Dr. Alisson Morton DO Primary Care Provider Active Dr. Remus Ungur , DO Emergency Provider Active Dr. Jovi [...] Dr. Xavier Younger MD Emergency Provider Active Director Supplier Quality Relationship Specialty Start Date End Date [facility] [address] [place] [address] PCP - General 02/10/22 Alisson Morton DO [facility] 01/12/22 Director Supplier Quality Relationship Specialty Start Date End Date [facility] [address] [place] [address] PCP - General 02/10/22 06/14/22 Alisson Morton DO [address] [place] [address] PCP - General Family Medicine 06/15/22 Alisson Morton DO Family Medicine 01/12/22 Director Supplier Quality Relationship Specialty Start Date End Date Alisson Morton DO [address] [place] [address] PCP - General Family Medicine 06/15/22 Alisson Morton DO Family Medicine 01/12/22 Director Supplier Quality Relationship Specialty Start Date End Date Alisson Morton DO [address] [place] [address] [place] [phone] PCP - General Family Medicine 06/15/22 Alisson Morton DO Family Medicine 01/12/22 Director Supplier Quality Relationship Specialty Start Date End Date [facility] [address] [place] [address] PCP - General 02/10/22 06/14/22 Alisson Morton DO [address] [place] [address] [place] [address] PCP - General Family Medicine 06/15/22 Alisson Morton DO Family Medicine 01/12/22 Director Supplier Quality Relationship Specialty Start Date End Date Alisson Morton DO [address] [place] [address] [place] [address] PCP - General Family Medicine 06/15/22 Alisson Morton DO Family Medicine 01/12/22 Director Supplier Quality Relationship Specialty Start Date End Date Alisson Morton DO [address] [place] [place] [address] PCP - General Family Medicine 06/15/22 Alisson Morton DO [facility] 01/12/22 Team Status: Inactive Member Role Status Dates Dr. Alisson Morton , DO Primary Care Provider Active Fallon Mcclendon NP, CLASSIFICATION CONTROL CLERK-C Attending Provider Active Team Status: Inactive Member Role Status Dates Dr. Alisson Morton DO Primary Care Provider Active Dr. Anabel Duvall MD Attending Provider Active Team Status: Active Member Role Status Dates Dr. Alisson Morton , DO Primary Care Provider Active Anabel WALSH MD Attending Provider Active Team Status: Active Member Role Status Dates Dr. Alisson Morton DO Primary Care Provider Active Fallon WALSH, CLASSIFICATION CONTROL CLERK-C Attending Provider, Referrin g Provider Active Team Status: Inactive Member Role Status Dates Dr. Alisson Morton DO Primary Care Pro vider, Attending Provider, Referring Provider Active Director Supplier Quality Relationship Specialty Start Date End Date Alisson Morton DO [address] [place] [address] PCP - General Family Medicine 06/15/22 Alisson Morton DO [facility] 01/12/22 Director Supplier Quality Relationship Specialty Start Date End Date Alisson Morton DO [address] [place] [place] [address] PCP - General Family Medicine 06/15/22 Alisson Morton DO [facility] 01/12/22 Team Status: Active Member Role Status Dates Dr. Alisson Morton DO Primary Care Provider, Referri ng Provider Active Dr. Roque Herrera , DO Attending Provider, Other Prov ider Active Team Status: Inactive Member Role Status Dates Dr. Alisson Morton DO Primary Care Provider, Referri ng Provider Active Dr. Roque Herrera , DO Attending Provider Active Team Status: Inactive Member Role Status Dates Dr. Alisson Morton DO Primary Care Provider Active Memo Naqvi MD Emergency Provider Active Director Supplier Quality Relationship Specialty Start Date End Date Alisson Morton DO [address] [place] [address] [place] [address] PCP - General Family Medicine 06/15/22 Alisson Morton DO Family Medicine 01/12/22 Director Supplier Quality Relationship Specialty Start Date End Date Alisson Morton DO [address] [place] [place] [address] PCP - General Family Medicine 06/15/22 Alisson Morton DO Family Medicine 01/12/22 Director Supplier Quality Relationship Specialty Start Date End Date Alisson Morton DO [address] [place] [place] [address] PCP - General Family Medicine 06/15/22 Alisson Morton DO Family Medicine 01/12/22 Director Supplier Quality Relationship Specialty Start Date End Date Alisson Morton DO [address] [place] [place] [address] PCP - General Family Medicine 06/15/22 Alisson Morton DO Family Medicine 01/12/22 Director Supplier Quality Relationship Specialty Start Date End Date No, Pcp [address] [place] [address] PCP - General 02/10/22 Alisson Morton, DO [address] [place] [place] [address] Family Medicine 01/12/22 Director Supplier Quality Relationship Specialty Start Date End Date No, Pcp [address] [place] [address] PCP - General 02/10/22 Alisson Morton, DO Family Medicine 01/12/22 Director Supplier Quality Relationship Specialty Start Date End Date No, Pcp [address] [place] [address] PCP - General 02/10/22 Alisson Morton, DO Family Medicine 01/12/22 Director Supplier Quality Relationship Specialty Start Date End Date No, Pcp [address] [place] [address] PCP - General 02/10/22 Alisson Morton, DO Family Medicine 01/12/22 Director Supplier Quality Relationship Specialty Start Date End Date No, Pcp [address] [place] [address] PCP - General 02/10/22 Alisson Morton, DO [...] 2024 End: April 10, 2024 Fallon Mcclendon NP CLASSIFICATION CONTROL CLERK-C Attending Provider Active Start: April 10, 2024 [...] August 18, 2024 End: August 18, 2024 Director Supplier Quality Relationship Specialty Start Date End Date Alisson Morton DO [address] [place] [address] [place] [address] PCP - General Family Medicine [...] 2024 End: August 27, 2024 Osmar Mendoza CLASSIFICATION CONTROL CLERK, CLASSIFICATION CONTROL CLERK-C Attending Provider Active S tart: August 27, 2024 End: August 27, 2024 Team Status: Inactive Member Role/Relationship Status Dates Dr. Alisson Morton DO Primary Care Provider Active Start: July 17, 2024 End: July 17, 2024 Osmar Mendoza CLASSIFICATION CONTROL CLERKDONOVANC Attending Provider Active S tart: July 17, 2024 End: July 17, 2024 Team Status: Inactive Member Role/Relationship Status Dates Dr. Alisson Morton DO Primary Care Provider Active Start: July 25, 2024 End: July 25, 2024 Fallon Mcclendon NP, CLASSIFICATION CONTROL CLERK-C Attending Provider Active Start: July 25, 2024 [...] Inactive Member Role/Relationship Status Dates Dr. Alisson Mroton DO Primary Care Provider Active Start: June [...] End: July 17, 2024 Osmar Mendoza NP, CLASSIFICATION CONTROL CLERK-C Attending Provider Active S tart: July 17, 2024 End: July 17, 2024 Team Status: Inactive Member Role/Relationship Status Dates Dr. Alisson Morton DO Primary Care Provider Active Start: July 25, 2024 End: July 25, 2024 Fallon Mcclendon CLASSIFICATION CONTROL CLERK, CLASSIFICATION CONTROL CLERK-C Attending Provider Active Start: July 25, 2024 [...] Provider Active Start: September 14, 2024 Anabel WASLH MD Attending Provider Active Start: September 14, 2024 Anabel WALSH MD Referring Provider Active Start: September 14, 2024 Team Status: Inactive Member Role/Relationship Status Dates Dr. Alisson Morton DO Primary Care Provider Active Start: July 17, 2024 End: July 17, 2024 Fallon Mcclendon CLASSIFICATION CONTROL CLERK, CLASSIFICATION CONTROL CLERK-C Attending Provider Active Start: July 17, 2024 [...] Oral, 3 times daily, First dose on Wed06/13/22 at 1645 0832 (Given - Provider: Lennie Aguilar RN)1622 (Given - Provider: Lennie Aguilar RN)2118 (Given - Provider: Ashley Gutierrez RN) 0859 (Given - Provider: Lennie Aguilar RN)1607 (Given - Provider: Lennie Aguilar RN)203 (Given - Provider: Fiordaliza Del Castillo RN) 0912 (Given - Provider: Nicole Boles, ELEAZAR)1357 (Given - Provider: Nicole Boles RN)2100 (Canceled [...] daily, First dose on 06/13/22 at 2099 0832 (Given - Provider: Lennie Aguilar RN)2117 (Given - Provider: Ashley Gutierrez, ELEAZAR) 0857 [...] daily, First dose on 06/13/22 at 2099 0832 (Given - Provider: Lennie Aguilar RN)2117 (Given - Provider: Ashley Gutierrez RN) 0859 (Given - Provider: Lennie Aguilar RN)2030 (Given - Provider: Fiordaliza Del Castillo, ELEAZAR) 09 (Given - Provider: Nicole Boles, ELEAZAR)2099 (Canceled Entry - Provider: Automatic Discharge Provider - Comment: Automatically canceled at discontinue of medication order) mirtazapine (Remeron) tablet 15 mg 15 mg, Oral, Nightly, First dose on 06/13/22 at 2099 2117 (Given - Provider: Ashley Gutierrez RN) 2029 [...] mEq (COMPLETED) 20 mEq, Oral, Once, On Tu06/16/22 at 0915, For 1 dose, Best given [...] or prosecute any alcohol or drug abuse patient.[facility] FOR RECORDS PERTAINING TO PATIENTS WHO ARE [...] BE BASED ON THE PRIMARY CLINICAL RECORDS. [facility]. provides no warranty or guarantee of the accuracy or completeness of information in this document.
--- NOTE | 2025-01-13 22:27 | EX.ED.DYSGE1 ---
HPI History of Present Illness Chief Complaint: Fall Informant: EMS and SNF Narrative Narrative: Patient is a 84-year-old female with history of hypertension hyperlipidemia and Alzheimer's dementia. Nursing reports she had an unwitnessed fall. They state that she is not on blood thinners and she is acting at her baseline mental status. However there was apparent pain when she was moved or her hip was touched and with concern for injury she was sent in for evaluation. Patient cannot offer any further history based on her dementia. [facility] Medical History Anxiety Depression Constipation Acute bronchitis, unspecified Wears glasses Wears dentures Wears partial dentures Bladder disease Low iron Back pain Hypertension Difficulty swallowing History of hiatal hernia Gastric reflux Non-smoker Leg cramps Cardiology follow-up encounter History of CHF (congestive heart failure) History of heart attack Wears hearing aid in both ears Diabetes Dementia Dyslipidemia Iron deficiency anemia, unspecified Paroxysmal atrial fibrillation Atherosclerotic heart disease of [place] coronary artery without angina pectoris Persistent atrial fibrillation Gallstone of bile duct with gallbladder inflammation h/o throat surgery Hyperlipidemia Anemia Home Medications ?Medication ?Instructions ?Recorded ?Last Taken ?Type sertraline 50 mg tablet 50 mg PO DAILY 10/18/18 Unknown History torsemide 20 mg tablet 20 mg PO DAILY 10/18/18 Unknown History metformin 500 mg tablet 500 mg PO BID 05/12/22 Unknown History rivastigmine tartrate 3 mg capsule 3 mg PO BID 04/04/23 Unknown History mirtazapine 15 mg tablet 15 mg PO QHS 07/27/23 Unknown History quetiapine 25 mg tablet 25 mg PO .qam 11/22/23 Unknown History pantoprazole 20 mg tablet,delayed 20 mg PO QDAY 08/18/24 Unknown History release acetaminophen 500 mg capsule 500 mg PO Q4H PRN pain 10/05/24 Unknown History magnesium hydroxide 400 mg/5 mL 5 ml PO DAILY PRN constipation 10/05/24 Unknown History oral suspension (Milk of Magnesia) quetiapine 50 mg tablet (Seroquel) 50 mg PO DAILY 10/05/24 Unknown History Allergy/AdvReac Type Severity Reaction Status Date / Time ticagrelor (From Brilinta) Allergy Shortness Verified 01/13/25 21:36 of breath Family History Other no pertinent family medical hsitory Family History unable to obtain Surgical History History of esophagogastroduodenoscopy (EGD) Hx of partial thyroidectomy History of esophagogastroduodenoscopy (EGD) H/O colonoscopy H/O eye surgery H/O heart artery stent Social History Smoking Status: Never smoker ROS ROS ED ROS Narrative Unable to obtain review of systems secondary to dementia Review of Systems ROS Unobtainable: due to mental condition EXAM Physical Exam Const Vital Signs: 01/13/25 21:32 01/13/25 21:39 Temperature 97.7 F L Temperature Source Oral Pulse Rate 77 Respiratory Rate 18 Blood Pressure 149/60 H Blood Pressure Mean 89 Pulse Ox 97 Oxygen Delivery Method Room Air Room Air Positive well nourished and well developed General Appearance ED: well developed HEENT HEENT Narrative: Normocephalic atraumatic No signs of depressed or basilar skull fracture No tongue or cheek biting to suggest seizure activity Eyes PERRL and EOMs intact bilaterally General Eye ED: Negative for scleral icterus Neck supple Neck Narrative: No bony deformity or step-off of the cervical spine No midline tenderness to palpation Patient is moving her neck in all directions without pain Chest Wall palpation of chest normal Chest Narrative: No bony deformity or subcutaneous emphysema noted Resp normal respiratory effort and clear to auscultation bilaterally Cardio regular rate and regular rhythm GI normal to inspection, nondistended, normoactive bowel sounds, non-tender and non-distended GI Narrative: No voluntary guarding or rigidity or pulsatile mass No overlying abrasions or ecchymosis Auscultation: normoactive bowel sounds Palpation: soft Back/Spine Back/Spine Narrative: No bony deformity or step-offs of the thoracic or lumbar spine No midline tenderness to palpation Extremity Extremity Narrative: Pelvis is stable there is no shortening or external rotation of either lower extremity No pain is elicited with palpation of either hip or pubic rami region Patient does have a superficial abrasion with faint ecchymosis to the anterior aspect of the left knee. No obvious bony deformity or joint effusion All compartments are soft and compressible going against compartment syndrome Neuro CN's II-XII intact bilaterally Neuro Narrative: Patient is at her baseline mental status per detention staff. She does not follow commands well with her history of dementia but there is no focal neurologic finding noted Sensorium / Orientation: alert Psych Psych Narrative: Patient has a flat affect Skin Skin Narrative: Superficial abrasion with faint ecchymosis to the anterior aspect of the left knee otherwise normal MDM MDM MDM Narrative Medical decision making narrative: Patient arrived to the ER with stable vitals. She cannot provide any history based on her dementia. custodial reported an unwitnessed fall. In order to assess for femoral neck fracture versus hip contusion versus dislocation a pelvis x-ray was obtained. In order to assess for potential patellar fracture or knee dislocation and knee x-ray was ordered. In order to assess for traumatic skull fracture or traumatic subarachnoid subdural hemorrhage a noncontrast CT was obtained. All imaging revealed no signs of acute trauma. Therefore his vitals are stable and overall workup is negative for underlying trauma she is otherwise safe to return to the detention. Radiography Diagnostic Testing: Clinical Impression(s) from Imaging Studies Brain CT 01/13/25 21:47 IMPRESSION: No acute intracranial abnormality. Reading Location: [address] Knee X-Ray 01/13/25 21:47 IMPRESSION: No acute osseous abnormalities. Reading Location: [address] Pelvis X-Ray 01/13/25 21:47 IMPRESSION: No acute osseous abnormalities. Reading Location: [address] Left knee x-ray as interpreted by the emergency medicine physician reveals no acute fracture dislocation or joint effusion 1 view pelvis x-ray as interpreted by the emergency medicine physician reveals no acute fracture or dislocation Discharge Plan Triage Chief Complaint: Fall ED Provider: Zack Galvan Dx/Rx/DC Orders Clinical Impression: Accidental fall, Contusion of left knee, Alzheimer's dementia, Hypertension, High cholesterol Instructions: ED Soft Tissue Contusion, ED Fall with Uncertain Cause Prescriptions: No Action quetiapine 25 mg tablet 25 mg PO .qam pantoprazole 20 mg tablet,delayed release (DR/EC) 20 mg PO QDAY torsemide 20 MG tablet 20 mg PO DAILY sertraline 50 MG tablet 50 mg PO DAILY metformin 500 mg tablet 500 mg PO BID Patient Comments: TAKE 1 TABLET BY MOUTH TWICE A DAY WITH FOOD FOR 90 DAYS rivastigmine tartrate 3 mg capsule 3 mg PO BID mirtazapine 15 mg tablet 15 mg PO QHS magnesium hydroxide [Milk of Magnesia] 400 mg/5 mL suspension 5 ml PO DAILY PRN (Reason: constipation) quetiapine [Seroquel] 50 mg tablet 50 mg PO DAILY acetaminophen 500 mg capsule 500 mg PO Q4H PRN (Reason: pain) Primary Care Provider: Anabel Duvall Referrals: Anabel Duvall MD [Primary Care Provider, Internal Medicine] Activity Restrictions/Additional Instructions: The patient's head CT revealed no findings of skull fracture or brain bleed. X-rays of the pelvis and left knee also showed no sign of acute fracture. Therefore patient is medically cleared to return to the detention and can continue her home medications as directed by her doctor Print Language: Iranian Disposition Disposition: Shelter Facility Discharge Location: [facility] Discharge Date/Time: 01/14/25 00:15
--- NOTE | 2025-01-13 22:28 | ED.RN ---
attempted to call legal guardian Kailyn Vaz, went to answering service,so left message.
[2025-01-13 22:33] VITALS: BP 143/64; PULSE 70; RESP 18; TEMP 36.6; O2SAT 98
== END 2025-01-14 00:15 ==
PROVIDERS: Emergency Provider Emergency Medicine; PCP Internal Medicine; Visit Provider Emergency Medicine
DX: S80.02XA Contusion of left knee, initial encounter (principal); I11.0 Hypertensive heart disease with heart failure; I50.9 Heart failure, unspecified; F02.80 Dementia in other diseases classified elsewhere, unspecified severity, without behavioral disturbance, psychotic disturbance, mood disturbance, and anxiety; G30.9 Alzheimer's disease, unspecified; I48.0 Paroxysmal atrial fibrillation; E11.9 Type 2 diabetes mellitus without complications; E78.00 Pure hypercholesterolemia, unspecified; I25.10 Atherosclerotic heart disease of native coronary artery without angina pectoris; F41.9 Anxiety disorder, unspecified; F32.A Depression, unspecified; K21.9 Gastro-esophageal reflux disease without esophagitis; Z79.899 Other long term (current) drug therapy; Z79.84 Long term (current) use of oral hypoglycemic drugs; Z95.5 Presence of coronary angioplasty implant and graft; W19.XXXA Unspecified fall, initial encounter; Y92.129 Unspecified place in nursing home as the place of occurrence of the external cause
CPT/HCPCS: 70450; 72170; 73562; 99283